=== PATIENT | male | born 1950 | race Caucasian/White ===

== ENCOUNTER 2017-11-10 11:48 | Observation (INO) | payer OTHER ==
--- NOTE | 2017-11-10 13:02 | RAD REPORT ---
EXAM DESCRIPTION: RAD - Chest Single View - 11/10/2017 12:53 pm CLINICAL HISTORY: Chest pain;SOB Chest pain. COMPARISON: Chest Single View dated 05/02/2017; Chest Pa And Lat (2 Views) dated 04/04/2017; Chest S kristen View dated 02/28/2017; Chest Pa And Lat (2 Views) dated 02/07/2017 FINDINGS: Portable technique limits examination quality. The lungs are grossly clear. The heart is normal in size. No displaced fractures. IMPRESSION: No acute intrathoracic process suspected.
[2017-11-10] MEDS ORDERED: ALBUTEROL 2.5 MG/3 ML NEB SOL ONE (13:04)
[2017-11-10] MEDS ORDERED: IPRATROPIUM BROM 0.5MG/2.5ML ONE (13:05)
[2017-11-10] MEDS ORDERED: ASPIRIN 81 MG CHEWABLE TABLET ONE (13:05)
[2017-11-10 13:23] LABS: Absolute Lymphocytes (CBC) 2.2 K/uL (0.7-4.9); Absolute Neutrophil 8.9 K/uL (1.8-8.0); Basophils % 0.9 % (0-1.3); Eosinophils % 0.9 % (0-4.4); Hematocrit 39.2 % (39.6-49.0); Lymphocytes % 17.9 % (15.3-44.8); MCH 29.5 pg (27.0-35.0); MCV 86.3 fL (80-100); MPV 8.2 fL (7.6-11.3); RBC Red Blood Cell Count 4.54 M/uL (4.33-5.43)
[2017-11-10 13:29] LABS: Protime INR 1.05
[2017-11-10 13:47] LABS: Urine Blood TRACE (NEG); Urine Glucose NEGATIVE (NEG); Urine Protein NEGATIVE (NEG); Urine pH 5.5 (5.0-7.0)
[2017-11-10 13:56] LABS: AST/SGOT 155 U/L (15-37); BUN Blood Urea Nitrogen 21 mg/dL (7-18); Bicarbonate 27 mmol/L (21-32); Glucose Level 114 mg/dL (74-106); Potassium 3.4 mmol/L (3.5-5.1); Sodium Level 139 mmol/L (136-145)
[2017-11-10 13:57] LABS: ALT/SGPT 28 U/L (12-78); Albumin 3.7 g/dL (3.4-5.0); Alkaline Phosphatase 81 U/L (45-117); Bilirubin Direct < 0.1 mg/dL (0-0.2); Bilirubin Total 0.3 mg/dL (0.2-1.0); Creatine Phosphokinase 850 U/L (39-308); Magnesium 1.9 mg/dL (1.8-2.4); NT PRO-BNP 2177 pg/mL (<125); Protein, Total 8.3 g/dL (6.4-8.2)
[2017-11-10] MEDS ORDERED: ENOXAPARIN 100 MG/ML SYR SQ ONE (14:57)
[2017-11-10] MEDS ORDERED: FUROSEMIDE 40 MG/4 ML VIAL ONE (14:57)
[2017-11-10] MEDS ORDERED: ACETAMINOPHEN 500 MG TAB PO PRN (15:18)
--- NOTE | 2017-11-10 15:25 | EDPHYS ---
Physician Documentation [facility] Name: Ludwin Hsu Age: 66 yrs Sex: Male : 1950 Arrival Date: 11/10/2017 Time: 11:51 Bed 6 Private MD: Jessica Ferrara H ED Physician Kavin Mcmullen HPI: 11/10 12:45 This 66 yrs old Male presents to ER via Ambulatory with complaints of cp Breathing Difficulty. Historical: - Allergies: 12:18 NKA; aj1 - Home Meds: 12:18 metolazone 5 mg oral tab 1 tab once daily [Active]; glipizide 5 mg Oral tr24 2 tabs aj1 once daily [Active]; clopidogrel 75 mg Oral tab 1 tab once daily [Active]; metformin 1,000 mg Oral tab 1 tab 2 times per day [Active]; trazodone 100 mg Oral tab 1 tab at bedtime [Active]; gabapentin 400 mg Oral cap 1 cap 3 times per day [Active]; nifedipine 60 mg Oral TbER 1 tab once daily [Active]; furosemide 80 mg Oral tab 1 tab once daily [Active]; carvedilol 25 mg Oral tab 1 tab 2 times per day [Active]; aspirin 81 mg Oral chew 1 tab once daily [Active]; pantoprazole 40 mg Oral TbEC 1 tab once daily [Active]; albuterol sulfate 90 mcg/actuation Inhl HFAA 1 puff every 6 hours [Active]; - PMHx: 12:18 arteriosclerosis; CHF; chronic back pain; COPD; Diabetes - NIDDM; kidney disease; aj1 Hypertension; malignant neoplasm of epidimyis; Myocardial infarction; Pancreatitis; PTSD; tinnitus; - Immunization history:: Flu vaccine is up to date. - Social history:: Smoking status: Patient uses tobacco products, smokes one pack cigarettes per day. - Ebola Screening: : Patient denies travel to an Ebola-affected area in the 21 days before illness onset. ROS: 12:50 Constitutional: Negative for body aches, chills, fever, poor PO intake. cp 12:50 Eyes: Negative for injury, pain, redness, and discharge. cp 12:50 ENT: Negative for drainage from ear(s), ear pain, sore throat, difficulty swallowing, difficulty handling secretions. 12:50 Cardiovascular: Positive for edema, Negative for chest pain, palpitations. 12:50 Respiratory: Positive for shortness of breath, on exertion. Negative for cough, hemoptysis, wheezing. 12:50 Abdomen/GI: Negative for abdominal pain, nausea, vomiting, and diarrhea, black/tarry stool, rectal bleeding. 12:50 Back: Negative for pain at rest, pain with movement, radiated pain. 12:50 : Negative for urinary symptoms. 12:50 Skin: Negative for cellulitis, rash. 12:50 Neuro: Negative for altered mental status, headache, syncope, near syncope, weakness. 12:50 All other systems are negative. Exam: 12:35 ECG was reviewed by the Attending Physician. 16:29 ECG was reviewed by the Attending Physician. Vital Signs: 12:18 BP 128 / 83; Pulse 62; Resp 24; Temp 97.6(O); Pulse Ox 93% on R/A; Weight 136.08 kg aj1 (R); Height 5 ft. 11 in. (180.34 cm); Pain 7/10; 13:41 Pulse 88; Resp 27; Pulse Ox 93% on R/A; ae1 13:48 BP 138 / 75; Pulse 95; Resp 17; Pulse Ox 93% on R/A; ae1 15:14 BP 124 / 62; Pulse 63; Resp 19; Pulse Ox 95% on 2 lpm NC; ae1 16:45 BP 165 / 72; Pulse 66; Resp 18 S; Pulse Ox 99% ; Pain 0/10; jl7 12:18 Body Mass Index 41.84 (136.08 kg, 180.34 cm) aj1 MDM: 12:24 Patient medically screened. 15:05 Data reviewed: vital signs, nurses notes, lab test result(s), EKG, radiologic studies, cp plain films. ED course: VSS. Patient left ED against medical advice to go outside and smoke cigarette. 15:05 Test interpretation: by ED physician or midlevel provider: ECG, plain radiologic cp studies. 15:12 Physician consultation: Efrain Cintron MD was contacted at 15:13, regarding consult, cp patient's condition, discussed findings on EKG, labs and chest xray. Will admit patient to hospitalist with consult for DR Cintron. 11/10 12:40 Order name: Basic Metabolic Panel; Complete Time: 14:10 cp 11/10 14:10 Interpretation: Normal except: K 3.4; GLUC 114; BUN 21; GFR 60. cp 11/10 12:40 Order name: CBC with Diff; Complete Time: 14:10 cp 11/10 14:11 Interpretation: Normal except: WBC 12.3; HGB 13.4; HCT 39.2; NEUT A 8.9. cp 07/ 12:40 Order name: Ckmb; Complete Time: 14:10 cp 11/10 12:40 Order name: CPK; Complete Time: 14:10 cp 11/10 12:40 Order name: LFT's; Complete Time: 14:10 cp 11/10 12:40 Order name: Magnesium; Complete Time: 14:10 cp 11/10 12:40 Order name: NT PRO-BNP; Complete Time: 14:10 cp 11/10 14:11 Interpretation: Abnormal: NT PRO-BNP 2177. cp 11/10 12:40 Order name: PT-INR; Complete Time: 14:10 cp 11/10 12:40 Order name: Ptt, Activated; Complete Time: 14:10 cp 11/10 12:40 Order name: Troponin (emerg Dept Use Only); Complete Time: 15:05 cp 11/10 15:05 Interpretation: Abnormal: TROPED 86.90. cp 11/10 12:40 Order name: XRAY Chest (1 view); Complete Time: 14:10 cp 11/10 13:43 Order name: Urine Dipstick--Ancillary (enter results); Complete Time: 14:10 ag 11/10 15:20 Order name: Urinalysis EDMN 11/10 15:21 Order name: Chest Pa And Lat (2 Views) EDMN 11/10 12:40 Order name: EKG; Complete Time: 12:40 cp 11/10 12:40 Order name: Cardiac monitoring; Complete Time: 13:02 cp 11/10 12:40 Order name: EKG - Nurse/Tech; Complete Time: 13:03 cp 11/10 12:40 Order name: IV Saline Lock; Complete Time: 13:18 cp 11/10 12:40 Order name: Labs collected and sent; Complete Time: 13:18 cp 11/10 12:40 Order name: O2 Per Protocol; Complete Time: 13:02 cp 11/10 12:40 Order name: O2 Sat Monitoring; Complete Time: 13:02 cp 11/10 14:43 Order name: Diet Heart Healthy; Complete Time: 14:43 jl7 11/10 15:20 Order name: CONS Physician Consult EDMN 11/10 15:20 Order name: Heart Healthy EDMN 11/10 15:21 Order name: Chest Pa And Lat (2 Views) EDMN 11/10 12:40 Order name: Urine Dipstick-Ancillary (obtain specimen); Complete Time: 13:40 cp EC:35 Rate is 83 beats/min. Rhythm is regular. MD interval is normal. QRS interval is cp prolonged at 102 msec. QT interval is normal. Clinical impression: NSR w/ Non-specific ST/T Changes. Interpreted by me. Reviewed by me. 16:29 Rate is 92 beats/min. Rhythm is regular. MD interval is normal. QRS interval is cp prolonged at 104 msec. QT interval is prolonged. Clinical impression: NSR w/ Non-specific ST/T Changes. Interpreted by me. Reviewed by me. Administered Medications: 13:05 Drug: Albuterol - atroVENT (3:1) (2.5 mg - 0.5 mg) 3 ml Route: Nebulizer; ae1 14:54 Follow up: Response: Wheezing diminished ae1 13:05 Drug: Aspirin Chewable Tablet 324 mg Route: PO; ae1 14:55 Follow up: Response: No adverse reaction ae1 15:00 Drug: Lovenox 100 mg Route: Sub-Q; Site: right lower abdomen; ae1 16:33 Follow up: Response: No adverse reaction ae1 15:02 Drug: Lasix 40 mg Route: IVP; Site: right hand; ae1 16:32 Follow up: Response: Other; 600 mls urine output voided in urinal ae1 16:34 Drug: Nicotine 21 mg/24 hr 1 patches {Note: Placed on right upper arm.} Route: jl7 Transdermal; Site: affected area; Disposition: 11/11 10:30 Co-signature as Attending Physician, Kavin Mcmullen MD. Disposition: 11/10/17 15:25 Hospitalization ordered by Consuelo Pace for Inpatient Admission. Preliminary diagnosis are Non-ST elevation (NSTEMI) myocardial infarction, Unspecified combined systolic (congestive) and diastolic (congestive) heart failure. - Bed requested for Telemetry/MedSurg (Inpatient). - Status is Inpatient Admission. ae1 - Condition is Stable. - Problem is new. - Symptoms have improved. UTI on Admission? No Addendum: 11/13/2017 01:00 Addendum: EXAM: Constitutional: The patient appears in no acute distress, alert,awake, c p non-diaphoretic, non-toxic, well developed, well nourished, obese. Head/Face: Normocephalic, atraumatic. Eyes: Pupils equal round and reactive to light, extra-ocular motions intact. Lids and lashes normal. Conjunctiva and sclera are non-icteric and not injected. Cornea within normal limits. Periorbital areas with no swelling, redness, or edema. ENT: Nares patent. No nasal discharge, no septal abnormalities noted. Tympanic membranes are normal and external and external auditory canals are clear. Oropharynx with no redness, swelling, or masses, exudates, or evidence of obstruction, uvula midline. Mucous membranes moist. Neck: Trachea midline, no thyromegaly or masses palpated, and no cervical lymphadenopathy. Supple, full range of motion without nuchal rigidity, or vertebral point tenderness. No Meningismus. Chest/axilla: Normal symmetrical motion. No tenderness. No crepitus. No axillary masses or tenderness. Cardiovascular: Rate: normal, Rhythm: regular, Pulses: Pulses are 2+ in right radial artery and left radial artery. Heart sounds: murmur, rub, not appreciated, gallop, not appreciated, Edema: mild bilateral lower legs, JVD: is not appreciated. Respiratory: the patient does not display signs of respiratory distress, Respirations: normal, no use of accessory muscles, no retractions, no splinting, no tachypnea, labored breathing, is not present, Breath sounds: are clear throughout, no decreased breath sounds, no stridor, no wheezing. Abdomen/GI: Inspection: obese, Bowel sounds: active, all quadrants, Palpation: abdomen is soft and non-tender. Back: pain, is absent, ROM is normal. Skin: cellulitis, is not appreciated, no rash present. Neuro: Orientation: to person, place \T\ time. Cerebellar function: is grossly normal, Motor: moves all fours, strength is normal, Sensation: no obvious gross deficits, Gait: is steady. Signatures: Dispatcher [employer] [facility] Veronica Álvarez RN RN aj1 Yoselyn John Corey, PA PA cp Endy Agosto, STEPHEN RN ae1 Theo Carlos RN RN jl7 Kavin Mcmullen MD MD gs Corrections: (The following items were deleted from the chart) 11/10 16:43 15:25 Hospitalization Ordered by Consuelo Pace MD for Inpatient Admission. Preliminary ag diagnosis is Non-ST elevation (NSTEMI) myocardial infarction; Unspecified combined systolic (congestive) and diastolic (congestive) heart failure. Bed requested for Telemetry/MedSurg (Inpatient). Status is Inpatient Admission. Condition is Stable. Problem is new. Symptoms have improved. UTI on Admission? No. cp 17:01 16:43 11/10/2017 15:25 Hospitalization Ordered by Consuelo Pace MD for Inpatient ae1 Admission. Preliminary diagnosis is Non-ST elevation (NSTEMI) myocardial infarction; Unspecified combined systolic (congestive) and diastolic (congestive) heart failure. Bed requested for Telemetry/MedSurg (Inpatient). Status is Inpatient Admission. Condition is Stable. Problem is new. Symptoms have improved. UTI on Admission? No. ag
--- NOTE | 2017-11-10 15:25 | ER ---
Nurse's Notes [facility] Name: Ludwin Hsu Age: 66 yrs Sex: Male : 1950 Arrival Date: 11/10/2017 Time: 11:51 Bed 6 Private MD: Jessica Ferrara H Diagnosis: Non-ST elevation (NSTEMI) myocardial infarction;Unspecified combined systolic (congestive) and diastolic (congestive) heart failure Presentation: 11/10 12:12 Presenting complaint: Patient states: Shortness of breath and swelling to bilateral aj1 lower legs since yesterday. States that he did not take his Lasix for the past couple days. Denies chest pain at this time but states that he was having chest pain all night last night. Patient also reports that he has some spider bites on his face that he would like to have checked out. Transition of care: patient was not received from another setting of care. Onset of symptoms was November 09, 2017. Risk Assessment: Do you want to hurt yourself or someone else? Patient reports no desire to harm self or others. Initial Sepsis Screen: Does the patient meet any 2 criteria? No. Patient's initial sepsis screen is negative. Does the patient have a suspected source of infection? No. Patient's initial sepsis screen is negative. Care prior to arrival: None. 12:12 Method Of Arrival: Ambulatory aj1 12:12 Acuity: NGUYEN 3 aj1 Triage Assessment: 12:18 General: Appears uncomfortable, Behavior is calm, cooperative, appropriate for age. aj1 Pain: Complains of pain in face, right leg and left leg Pain currently is 7 out of 10 on a pain scale. Cardiovascular: swelling noted to bilateral legs. Respiratory: Reports shortness of breath Airway is patent Respiratory effort is even, unlabored, Respiratory pattern is regular, symmetrical, Onset: The symptoms/episode began/occurred yesterday, the patient has mild shortness of breath. Historical: - Allergies: 12:18 NKA; aj1 - Home Meds: 12:18 metolazone 5 mg oral tab 1 tab once daily [Active]; glipizide 5 mg Oral tr24 2 tabs aj1 once daily [Active]; clopidogrel 75 mg Oral tab 1 tab once daily [Active]; metformin 1,000 mg Oral tab 1 tab 2 times per day [Active]; trazodone 100 mg Oral tab 1 tab at bedtime [Active]; gabapentin 400 mg Oral cap 1 cap 3 times per day [Active]; nifedipine 60 mg Oral TbER 1 tab once daily [Active]; furosemide 80 mg Oral tab 1 tab once daily [Active]; carvedilol 25 mg Oral tab 1 tab 2 times per day [Active]; aspirin 81 mg Oral chew 1 tab once daily [Active]; pantoprazole 40 mg Oral TbEC 1 tab once daily [Active]; albuterol sulfate 90 mcg/actuation Inhl HFAA 1 puff every 6 hours [Active]; - PMHx: 12:18 arteriosclerosis; CHF; chronic back pain; COPD; Diabetes - NIDDM; kidney disease; aj1 Hypertension; malignant neoplasm of epidimyis; Myocardial infarction; Pancreatitis; PTSD; tinnitus; - Immunization history:: Flu vaccine is up to date. - Social history:: Smoking status: Patient uses tobacco products, smokes one pack cigarettes per day. - Ebola Screening: : Patient denies travel to an Ebola-affected area in the 21 days before illness onset. Screenin:22 Abuse screen: Denies threats or abuse. Nutritional screening: No deficits noted. ae1 Tuberculosis screening: No symptoms or risk factors identified. Fall Risk None identified. Assessment: 12:20 General: Appears uncomfortable, obese, Behavior is calm, cooperative. Pain: Complains ae1 of pain in chest Pain does not radiate. Neuro: Neuro: Level of Consciousness is awake, alert, obeys commands, Oriented to person, place, time, situation. Cardiovascular: Patient's skin is warm and dry. Respiratory: Airway is patent Respiratory effort is even, shallow, Mildly labored Breath sounds with wheezes bilaterally. GI: Abdomen is round distended, obese, Bowel sounds diminished in right lower quadrant and left lower quadrant. : No signs and/or symptoms were reported regarding the genitourinary system. Urine is clear. EENT: No signs and/or symptoms were reported regarding the EENT system. Derm: Wound noted Other: Two dry, healing lesions to the center of forehead directly in between eyebrows. Patient states he thinks a spider bit him. Musculoskeletal: Swelling present in right leg and left leg. 13:50 Cardiovascular: Rhythm is regular. ae1 13:54 Reassessment: Patient appears in no apparent distress at this time. Respiratory: Airway ae1 is patent Respiratory effort is even, Less labored. 15:18 Reassessment: Diet tray delivered, pt sitting on side of bed eating, no signs of jl7 distress noted. 15:52 Reassessment: Patient stating he wishes to go outside and "smoke a cigarette". Provided ae1 patient teaching on the hospital non-smoking facility and reiterated heart condition. Patient states "You can't stop me." Nurse notified Charge Nurse and Provider. Provider spoke with patient, patient repeated "You can't stop me. It's a 50 year habit" Patient proceeded to walk out the front of the ED. Vital Signs: 12:18 BP 128 / 83; Pulse 62; Resp 24; Temp 97.6(O); Pulse Ox 93% on R/A; Weight 136.08 kg aj1 (R); Height 5 ft. 11 in. (180.34 cm); Pain 7/10; 13:41 Pulse 88; Resp 27; Pulse Ox 93% on R/A; ae1 13:48 BP 138 / 75; Pulse 95; Resp 17; Pulse Ox 93% on R/A; ae1 15:14 BP 124 / 62; Pulse 63; Resp 19; Pulse Ox 95% on 2 lpm NC; ae1 16:45 BP 165 / 72; Pulse 66; Resp 18 S; Pulse Ox 99% ; Pain 0/10; jl7 12:18 Body Mass Index 41.84 (136.08 kg, 180.34 cm) aj1 ED Course: 11:51 Patient arrived in ED. mr 11:51 Jessica Ferrara DO is Private Physician. mr 12:14 Triage completed. aj1 12:15 Jose E Moser PA is PHCP. cp 12:15 Kavin Mcmullen MD is Attending Physician. cp 12:18 Arm band placed on Patient placed in an exam room. aj1 12:21 Endy Agosto, STEPHEN is Primary Nurse. ae1 12:35 Patient has correct armband on for positive identification. Bed in low position. Call jl7 light in reach. Side rails up X 1. groundwater monitoring technician on. Pulse ox on. NIBP on. Warm blanket given. 12:35 EKG done, by ED staff, reviewed by Jose E SEQUEIRA. jl7 12:54 XRAY Chest (1 view) In Process Unspecified. EDMS 13:21 Inserted saline lock: 24 gauge in right hand, using aseptic technique. Blood collected. ae1 14:42 Notified Nurse Practitioner and/or Physician Employee Relations Administrator of a critical lab result(s), iw Trop=86.9. 15:24 Consuelo Pace MD is Hospitalizing Provider. cp 17:00 No provider procedures requiring assistance completed. Patient admitted, IV remains in ae1 place. Administered Medications: 13:05 Drug: Albuterol - atroVENT (3:1) (2.5 mg - 0.5 mg) 3 ml Route: Nebulizer; ae1 14:54 Follow up: Response: Wheezing diminished ae1 13:05 Drug: Aspirin Chewable Tablet 324 mg Route: PO; ae1 14:55 Follow up: Response: No adverse reaction ae1 15:00 Drug: Lovenox 100 mg Route: Sub-Q; Site: right lower abdomen; ae1 16:33 Follow up: Response: No adverse reaction ae1 15:02 Drug: Lasix 40 mg Route: IVP; Site: right hand; ae1 16:32 Follow up: Response: Other; 600 mls urine output voided in urinal ae1 16:34 Drug: Nicotine 21 mg/24 hr 1 patches {Note: Placed on right upper arm.} Route: jl7 Transdermal; Site: affected area; Intake: Outcome: 15:25 Decision to Hospitalize by Provider. cp 17:00 Admitted to Med/surg accompanied by tech, family with patient, via wheelchair, room ae1 230, with oxygen, with chart, Report called to Rajwinder MITCHELL 17:00 Condition: stable 17:00 Discharge instructions given to patient, Instructed on the need for admit, Demonstrated understanding of instructions. 17:01 Patient left the ED. ae1 Signatures: Dispatcher [employer] [facility] Veronica Álvarez, STEPHEN RN Diana Wilder Irene, RN RN iw Page, Corey, PA PA Endy Agosto RN RN ae1 Theo Carlos RN RN jl7
[2017-11-10] MEDS ORDERED: NICOTINE 21 MG/PAT TD ONE (16:34)
[2017-11-10] MEDS ORDERED: POTASSIUM 25 MEQ EFFERV TAB PO ONE (17:26)
--- NOTE | 2017-11-10 17:30 | P.HP ---
Certification for Inpatient Patient admitted to: Observation With expected LOS: <2 Midnights Patient will require the following post-hospital care: None Practitioner: I am a practitioner with admitting privileges, knowledge of patient current condition, hospital course, and medical plan of care. Services: Services provided to patient in accordance with Admission requirements found in Title 42 Section 412.3 of the Code of Federal Regulations Patient History Date of Service: 11/10/17 Primary Care Provider: Dr Ferrara Reason for admission: SOB History of Present Illness: 66 y/o M with significant PMHX of CAD, CHF, T2DM, HTN, COPD, NORRIS and multiple other comorbit condition to the ED complaining of having some shortness of breath. Patient stated that his shortness of breath has been getting progressively worse and he started noticing that his feet has been swollen and thus he decided to come to the ER. Patient stated that he has been not taking his Lasix at home and has been noncompliant with his other medications as well. Patient also stated that he was having some chest pain yesterday at the house however a resolved before he came to the ER. When I saw the patient in the ER patient complained of having some mild chest discomfort and shortness of breath. Patient was saturating 94% on the 2 L. Patient's initial laboratory revealed that he had troponin of 86 CK MB was elevated as well and thus was admitted for further evaluation by cardiology. Allergies No Known Allergies Allergy (Verified 05/03/17 01:10) Home Medications: Metformin HCl [Glucophage*] 1,000 mg PO BID 01/01/14 Albuterol Sulfate [Proair Respiclick] 1 puff IN QIDP PRN 02/21/16 Budesonide/Formoterol Fumarate [Symbicort 160-4.5 Mcg Inhaler] 2 puff IH BIDP PRN 02/21/16 Carvedilol [Coreg*] 25 mg PO BID 6AM 6PM #60 tab 02/24/16 Clopidogrel Bisulfate [Plavix*] 75 mg PO DAILY #30 tablet 02/24/16 Furosemide [Lasix*] 80 mg PO DAILY #30 tab 02/24/16 Hydralazine [Apresoline*] 50 mg PO TID #90 tab 02/24/16 Lisinopril [Prinivil*] 40 mg PO DAILY #30 tab 02/24/16 Pantoprazole [Protonix Tab*] 40 mg PO DAILYAC #30 tab 02/24/16 Gabapentin [Neurontin*] 1,200 mg PO TID 12/02/16 Atorvastatin Calcium 40 mg PO DAILY 05/03/17 metOLazone [Metolazone] 5 mg PO DAILY PRN 30 Days #30 tablet 05/04/17 - Past Medical/Surgical History Diabetic: Yes -: Hypertension -: Diabetes mellitus type 2 -: Posttraumatic stress disorder -: Anxiety -: Hepatitis-C -: Hyperlipidemia -: CAD, stent placement x1 -: Obstructive sleep apnea -: Obesity -: Diabetic neuropathy -: History pancreatitis -: COPD, tobacco abuse -: 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 - Family History Father -: Cancer Mother -: Cancer Sister -: Cancer Brother -: Cancer - Social History Alcohol use: No CD- Drugs: Yes Caffeine use: Yes Review of Systems General: As per HPI Physical Examination - Vital Signs Temperature: 97.6 F Blood Pressure: 165/72 Pulse: 66 Respirations: 18 - Physical Exam General: Alert, In no apparent distress, Obese HEENT: Atraumatic, PERRLA Neck: Supple, JVD distended Respiratory: Normal air movement, Crackles/rales, Inspiratory wheezes Cardiovascular: Regular rate/rhythm, Normal S1 S2 Gastrointestinal: Normal bowel sounds, Soft and benign, Non-distended, No tenderness Musculoskeletal: No tenderness Integumentary: No rashes Neurological: Normal gait, Normal speech, Normal strength at 5/5 x4 extr, Normal tone, Normal affect Lymphatics: No axilla or inguinal lymphadenopathy - Studies Laboratory Data (last 24 hrs) 11/10/17 13:11: PT 12.4, INR 1.05, APTT 32.0 11/10/17 13:11: WBC 12.3 H, Hgb 13.4 L, Hct 39.2 L, Plt Count 265 11/10/17 13:11: Sodium 139, Potassium 3.4 L, BUN 21 H, Creatinine 1.20, Glucose 114 H, Magnesium 1.9, Total Bilirubin 0.3, AST 155 H, ALT 28, Alkaline Phosphatase 81 Assessment and Plan - Problems (Diagnosis) (1) Chest pain Onset Date: 02/22/16 Current Visit: No Status: Acute Plan: Chest pain Resolved in the ER. Elevated Troponinx1 and nonspecific EKG changes. -Cardiology consulted. Awaiting reccs -ECHO ordered. -ACS med: Statin, ASA, BB, Morphine and nitroglycerin Qualifiers: Chest pain type: other chest pain Qualified Code(s): R07.89 - Other chest pain; R07.8 - Other chest pain (2) Elevated troponin Current Visit: Yes Status: Acute Plan: Elevated Toponinx1 to 86.0. Pt with CKD and CHF. Can be elevated due to HF however ACS cannot be ruledout given CKMB elevation as well. -Cardiology consulted. -F.U with Reccs (3) Acute on chronic diastolic (congestive) heart failure Onset Date: 05/07/17 Current Visit: No Status: Acute Plan: Acute on chronic Diastolic Dysfunction -BNP is mildly elevated -Lasix BID IV for now -Repeat ECHO (4) COPD (chronic obstructive pulmonary disease) Current Visit: No Status: Chronic Qualifiers: COPD type: chronic bronchitis Chronic bronchitis type: unspecified Qualified Code(s): J42 - Unspecified chronic bronchitis (5) Morbid obesity Onset Date: 05/07/17 Current Visit: No Status: Chronic (6) Type 2 diabetes mellitus without complications Onset Date: 05/07/17 Current Visit: No Status: Chronic Qualifiers: Diabetes mellitus halfway insulin use: without halfway use Qualified Code(s): E11.9 - Type 2 diabetes mellitus without complications (7) GERD (gastroesophageal reflux disease) Onset Date: 12/03/16 Current Visit: No Status: Chronic Qualifiers: Esophagitis presence: without esophagitis Qualified Code(s): K21.9 - Gastro -esophageal reflux disease without esophagitis (8) Hyperlipidemia Onset Date: 12/03/16 Current Visit: No Status: Chronic (9) Hypertension Onset Date: 05/07/17 Current Visit: No Status: Chronic Qualifiers: Hypertension type: essential hypertension Qualified Code(s): I10 - Essential (primary) hypertension (10) Obesity Current Visit: No Status: Chronic Qualifiers: Obesity type: due to excess calories Obesity classification: adult class 3 (BMI >= 40) Serious obesity comorbidity presence: with serious comorbidity Body mass index: BMI 40.0-44.9 Qualified Code(s): E66.01 - Morbid (severe) obesity due to excess calories; Z68.41 - Body mass index (BMI) 40.0-44.9, adult (11) Obstructive sleep apnea Current Visit: No Status: Chronic Discharge Plan: Home Plan to discharge in: 24 Hours - Advance Directives Does patient have a Living Will: No Does patient have a Durable POA for Healthcare: No - Code Status/Comfort Care Code Status Assessed: Yes Critical Care: No
[2017-11-10] MEDS ORDERED: D50W 25 GM/50 ML SYRINGE IV PRN (17:35)
[2017-11-10] MEDS ORDERED: GLUCAGON 1 MG/VIAL IM PRN (17:35)
[2017-11-10] MEDS: INSULIN -REGULAR HUMAN 50 UNIT/0.5 ML ML SQ SCH ×2 (17:35→20:42)
[2017-11-10] MEDS ORDERED: NITROGLYCERIN 0.4 MG/TAB SL PRN (17:39)
[2017-11-10] MEDS ORDERED: MORPHINE 4 MG/ML SYR IV PRN (17:40)
[2017-11-10] MEDS: FUROSEMIDE 40 MG/4 ML VIAL IV SCH (18:28)
[2017-11-10 18:52] VITALS: BMI 40.6
[2017-11-10] MEDS ORDERED: ATORVASTATIN 40 MG TAB PO SCH (21:00)
[2017-11-10] MEDS ORDERED: CARVEDILOL 25 MG TAB PO SCH (21:00)
--- NOTE | 2017-11-10 23:00 | CON ---
Chief Complaint: Chest pain. History Of Present Illness: Mr. Hsu started having chest pain about 16 hours before arriving to the hospital. Largely the pain resolved. He thought it was indigestion. Later decided to come to [facility]. He has a history of diabetes, hypertension, obesity, dyslipidemia, and 2 previous stent s. There was an RCA stent and obtuse marginal stent placed in before 2013 and in 2015. There may gupta ve been other stents but no definite history of those. No bypass surgery. He does not have regular angina. Does not use tobacco. Alcohol use, moderate. He took 3 days where he stopped taking his La six and metolazone. He tends to have diastolic congestive heart failure as well as his other problem s. Physical Examination: General: He is 5 feet 11 inches, 300 pounds, body mass index 42. HEENT: Unremarkable. There are some scabs on his brow line on the right. They do not appear infect ed. No ecchymoses, not due to any recent trauma. Lungs: Clear. Carotids: No bruit. Heart: S4 gallop. No significant murmur. Abdomen: Soft. Extremities: 2 to 3+ edema. Distal pulses not palpable. Impression: Mr. Hsu has worsening CAD. It is very likely he has diffuse inoperable CAD. I have recommended we do a cardiac cath on him and see what we learn. Given the fact that we had so much t rouble doing it from the groin the last time I would recommend we use the radial approach, and he see ms agreeable to this. I think it is likely that we will have a lower risk of complications. We will continue his beta blockers, calcium blockers. I have to wonder why he is not on a statin medication at home. We did his last stent, we strongly recommended a statin. Gave him Lipitor. He has not se en me since 2016 and [facility], so I am not sure if they really gupta d a history or if he has had discussions with doctors that I am not privy to where he is refusing to take it, but I have to say we will inform him that his prognosis is much better if he takes a statin. Thank you very much for your kind referral of Mr. Hsu. We will follow him with you. We will cony n on doing a cardiac cath tomorrow. SH/PARTH Voice ID: [id number] Report ID: [id number]
[2017-11-11] MEDS ORDERED: ALPRAZOLAM 0.25 MG TABLET PO ONE (02:24)
[2017-11-11 04:36] LABS: Absolute Lymphocytes (CBC) 3.1 K/uL (0.7-4.9); Absolute Neutrophil 7.4 K/uL (1.8-8.0); Basophils % 0.6 % (0-1.3); Eosinophils % 2.7 % (0-4.4); Lymphocytes % 26.3 % (15.3-44.8); MCH 29.6 pg (27.0-35.0); MCV 86.7 fL (80-100); MPV 8.5 fL (7.6-11.3); Monocytes % 8.4 % (3.3-12.3)
[2017-11-11 05:10] LABS: Albumin 3.5 g/dL (3.4-5.0); Bilirubin Total 0.3 mg/dL (0.2-1.0); Magnesium 1.6 mg/dL (1.8-2.4); Potassium 3.2 mmol/L (3.5-5.1); Protein, Total 7.7 g/dL (6.4-8.2)
[2017-11-11] MEDS ORDERED: Magnesium Sulfate 2gm IVPB 2 G/50 ML BAG IV ONE (06:28)
--- NOTE | 2017-11-11 06:35 | EKG ---
Test Date: 2017-11-10 Test Time: 12:31:18 Hydraulic Design Engineer: SANGEETA MEASUREMENT RESULTS: Intervals: Rate: 83 [place]: 196 QRSD: 102 QT: 374 QTc: 439 [place]: P: 92 [place]: 196 QRS: -40 T: 39 INTERPRETIVE STATEMENTS: Sinus rhythm with frequent premature ventricular complexes Left axis deviation T wave abnormality, consider lateral ischemia Abnormal ECG Compared to ECG 05/02/2017 19:09:51 Left-axis deviation now present Possible ischemia now present T-wave abnormality still present Electronically Signed On 11-11-17 06:35:15 CDT by Efrain Cintron
[2017-11-11] MEDS ORDERED: MAGNESIUM SULFATE 1 gm IVPB 1 GM/100 ML BAG IV ONE (07:00)
[2017-11-11] MEDS: INSULIN -REGULAR HUMAN 50 UNIT/0.5 ML ML SQ SCH ×2 (07:30→11:30)
--- NOTE | 2017-11-11 07:47 | RAD REPORT ---
EXAM DESCRIPTION: Bandar Sweet (2 Views)11/11/2017 6:59 am CLINICAL HISTORY: Shortness of breath COMPARISON: November 10 2017 FINDINGS: The lungs appear clear of acute infiltrate. The heart is normal size IMPRESSION: No acute abnormalities displayed
[2017-11-11] MEDS ORDERED: NA CHLORIDE 0.9% 250 ML ONE (08:05)
[2017-11-11] MEDS: KCL 20 MEQ/100 mL IVPB 20 MEQ/100 ML BAG IV SCH ×2 (08:06→12:02)
[2017-11-11] MEDS ORDERED: HEPARIN 5000 UNIT/ML 1 ML VIAL ONE (08:22)
[2017-11-11] MEDS ORDERED: NICARDIPINE HCL 25 MG/10 ML IV ONE (08:23)
[2017-11-11] MEDS ORDERED: ATROPINE SULF 1 MG/10 ML SYR IV ONE (08:23)
[2017-11-11] MEDS ORDERED: NA CHLORIDE 0.9% 0 ML ONE ×2 (08:23→09:09)
[2017-11-11] MEDS ORDERED: LIDOCAINE 1% MPF 2 ML AMPULE ONE (08:37)
[2017-11-11] MEDS ORDERED: HEPA 1000U/500MLS 2,000 UNIT/1,000 ML BAG IV ONE (08:37)
[2017-11-11] MEDS ORDERED: LISINOPRIL 20 MG TAB PO SCH (09:00)
[2017-11-11] MEDS ORDERED: CLOPIDOGREL 75 MG TABLET PO SCH (09:00)
[2017-11-11] MEDS ORDERED: ENOXAPARIN 40 MG/0.4 ML SQ SCH (09:00)
[2017-11-11] MEDS: FUROSEMIDE 40 MG/4 ML VIAL IV SCH ×2 (09:00→13:06)
[2017-11-11] MEDS ORDERED: NIFEDIPINE XL 60 MG TABLET PO SCH (09:00)
[2017-11-11] MEDS ORDERED: ASPIRIN EC 81 MG TAB PO SCH (09:00)
[2017-11-11] MEDS ORDERED: NA CHLORIDE 0.9% 500 ML ONE (09:09)
--- NOTE | 2017-11-11 09:10 | EKG ---
Test Date: 2017-11-11 Test Time: 06:22:17 Rice Farmer: RT MEASUREMENT RESULTS: Intervals: Rate: 90 [place]: QRSD: 104 QT: 434 QTc: 530 [place]: P: UT: QRS: -47 T: 98 INTERPRETIVE STATEMENTS: Atrial fibrillation with premature ventricular or aberrantly conducted complexes Left axis deviation T wave abnormality, consider anterior ischemia or digitalis effect Prolonged QT Abnormal ECG Compared to ECG 11/10/2017 12:31:18 Prolonged QT interval now present Sinus rhythm no longer present T-wave abnormality still present Possible ischemia still present Electronically Signed On 11-11-17 09:09:28 CDT by Efrain Cintron
--- NOTE | 2017-11-11 09:11 | EKG ---
Test Date: 2017-11-10 Test Time: 17:50:24 Talent Development Coordinator: MELYSSA MEASUREMENT RESULTS: Intervals: Rate: 74 [place]: 194 QRSD: 110 QT: 436 QTc: 483 [place]: P: 86 [place]: 194 QRS: -38 T: 74 INTERPRETIVE STATEMENTS: Sinus rhythm with occasional premature ventricular complexes Left axis deviation Low voltage QRS Intraventricular conduction delay Compared to ECG 11/10/2017 17:47:51 no significant change from previous ECG Electronically Signed On 11-11-17 09:11:05 CDT by Efrain Cintron
--- NOTE | 2017-11-11 09:12 | EKG ---
Test Date: 2017-11-10 Test Time: 16:27:29 Field Case Manager: JOSE MEASUREMENT RESULTS: Intervals: Rate: 92 [place]: 194 QRSD: 104 QT: 384 QTc: 474 [place]: P: 83 [place]: 194 QRS: -38 T: 56 INTERPRETIVE STATEMENTS: Sinus rhythm with frequent premature ventricular complexes Left axis deviation Nonspecific T wave abnormality Prolonged QT Abnormal ECG Compared to ECG 11/10/2017 12:31:18 no significant change from previous ECG Electronically Signed On 11-11-17 09:12:09 CDT by Efrain Cintron
--- NOTE | 2017-11-11 09:12 | EKG ---
Test Date: 2017-11-10 Test Time: 17:47:51 Striper: MELYSSA MEASUREMENT RESULTS: Intervals: Rate: 81 [place]: 196 QRSD: 108 QT: 428 QTc: 497 [place]: P: 82 GA: 196 QRS: -33 T: 73 INTERPRETIVE STATEMENTS: Sinus rhythm with frequent premature ventricular complexes Left axis deviation Nonspecific intraventricular conduction delay Nonspecific T wave abnormality Compared to ECG 11/10/2017 16:27:29 Intraventricular conduction delay now present Electronically Signed On 11-11-17 09:11:47 CDT by Efrain Cintron
[2017-11-11] MEDS ORDERED: FENTANYL CITR 100 MCG/2 ML ONE (09:16)
[2017-11-11] MEDS ORDERED: MIDAZOLAM HCL 5 MG/5 ML INJ ONE ×2 (09:16→09:18)
[2017-11-11 10:37] VITALS: TEMP 97
[2017-11-11 11:47] VITALS: BP 127/81
[2017-11-11] MEDS ORDERED: TRAZODONE 50 MG TABLET PO PRN (12:16)
[2017-11-11 14:18] VITALS: O2SAT 98
[2017-11-11] MEDS ORDERED: SOTALOL HCL 80 MG TAB PO SCH (18:00)
--- NOTE | 2017-11-11 19:07 | OP ---
Surgeon: Efrain Cintron MD Procedure: Left heart catheterization, coronary and left ventricular angiography. Findings: The patient has a left main intimal flap and a 50% left main stenosis, diffuse long tortuo us 60% stenosis of the LAD. Circumflex is free of significant stenosis. The stent in the OM is szymanski nt. His right coronary seems to have no significant stenosis. There is ectasia and diffuse atherosc lerosis. Left ventricular ejection fraction is normal to mildly hyperdynamic. Left ventricular end- diastolic pressure 22. No LV pullback gradient and the recommendation is that he had bypass surgery because of the left main intimal flap and stenosis associated with an LA. Procedure In Detail: The patient was brought to the cardiac canvas shop laborer in a fasting state, sedated wit h Versed and fentanyl, titrated to an adequate level of sedation. Prepared and draped in usual steri le fashion. Right radial approach was used. The tissues around the right radial artery were anesthe tized with 1% lidocaine. The artery was entered using a 21-gauge needle. A 0.021 inch diameter guid ewire was used to cannulate the artery and then we used the modified Seldinger technique to place a 6 -[place] [employer] radial sheath. The sheath was flushed and a radial cocktail was given. in order to d o the angiogram, we used a TIG catheter by [employer] guided into the ascending aorta using fluoroscopy and a [employer] Glidewire with a short radius J-tip. We were able to angiogram right and left coronary as well as left ventricle using the same catheter after the decision was made to refer him to a surge on. The catheter was removed over a J-wire. The sheath was flushed, removed, and the arteriotomy wa s closed using a TR band. No complications from the procedure. The case was discussed with Dr. Xiao Urena a surgeon at [facility]. No complications from the procedure. Estimated Blood Loss: 5 cc. Epoxy Coatings Installer: Aleida Anand. CAPRICE/PARTH Voice ID: [id number] Report ID: [id number]
[2017-11-11] MEDS ORDERED: ATORVASTATIN 80 MG TAB PO SCH (21:00)
[2017-11-12] MEDS ORDERED: CLOPIDOGREL 75 MG TABLET PO SCH (09:00)
--- NOTE | 2017-11-12 10:38 | DS ---
Date of Discharge: 11/11/2017 Docent Coordinator: Dr. Cintron with Cardiology. Procedures: Cardiac catheterization on 11/11/2017. code status: Full Admitting Diagnoses: 1. Yam-NE-yonaikeln myocardial infarction. 2. Morbid obesity, BMI 40.7. 3. Lexnj-yd-hzsgece diastolic heart failure. 4. Chronic obstructive pulmonary disease. 5. Chronic bronchitis. 6. Morbid obesity. 7. Diabetes mellitus type 2 without complications with long-term use of insulin. 8. Gastroesophageal reflux disease without esophagitis. 9. Hyperlipidemia. 10. Essential hypertension. 11. Obstructive sleep apnea, chronic. Discharge Diagnoses: 1. Kvh-JV-odyiteldo myocardial infarction, status post cardiac cath, will need coronary artery bypass grafting. 2. Acute on chronic diastolic heart failure. 3. Chronic obstructive pulmonary disease. 4. Chronic bronchitis. 5. Morbid obesity, BMI of 40.7. 6. Diabetes mellitus type 2 with long-term use of insulin without complications. 7. Gastroesophageal reflux disease without esophagitis. 8. Hyperlipidemia. 9. Essential hypertension. 10. Obstructive sleep apnea. Hospital Course: The patient is a 66-year-old male with past medical history of heart disease, CHF, diabetes, hypertension, COPD, sleep apnea, who comes in with shortness of breath. The patient was found to have CHF, acute on chronic CHF exacerbation. He also had elevated troponin level and therefore was admitted to the hospital for further workup. The patient was started on chest pain guidelines. White count improved. Did have some low potassium which was replaced. EKG did not show any acute changes. He is seen by Cardiology and was taken for cardiac catheterization and was found to have multivessel disease , recommending CABG. EKG did show some atrial fibrillation. The patient was then recommended to be transferred to [facility] for coronary artery bypass graft and was transferred in stable condition. Physical Examination: General: Awake, alert, and oriented x3. No acute distress. CV: S1, S2. No murmurs. Respiratory: Moving air well bilaterally. No wheezing. Abdomen: Soft, nontender, nondistended. Positive bowel sounds. Extremities: No clubbing, cyanosis, or edema. Neurologic: Nonfocal. SA/MODL Voice ID: [id number] Report ID: [id number] [facility] HOSPITALBenjamin
== END 2017-11-11 14:33 | disposition short-term general hospital (02) ==
LOC: ER 11:48 → ERHOLD 15:19 → 2ND 16:54
PROVIDERS: ADMIT Family Medicine; ATTEND Family Medicine
DX: I21.4 Non-ST elevation (NSTEMI) myocardial infarction (principal); I25.10 Atherosclerotic heart disease of native coronary artery without angina pectoris; I50.33 Acute on chronic diastolic (congestive) heart failure; I11.0 Hypertensive heart disease with heart failure; J44.9 Chronic obstructive pulmonary disease, unspecified; E66.01 Morbid (severe) obesity due to excess calories; Z68.41 Body mass index [BMI] 40.0-44.9, adult; E11.9 Type 2 diabetes mellitus without complications; Z79.4 Long term (current) use of insulin; K21.9 Gastro-esophageal reflux disease without esophagitis; E78.5 Hyperlipidemia, unspecified; G47.33 Obstructive sleep apnea (adult) (pediatric); Z95.5 Presence of coronary angioplasty implant and graft
CPT/HCPCS: 36415; 71045; 71046; 80048; 80053; 80076; 81003; 82550; 82553 ×3; 82962 ×4; 83735 ×2; 83880 ×2; 84100; 84484 ×3; 85025 ×2; 85610; 85730; 93005 ×5; 93458; 94640; 96372; 96374; 99285; C1893; G0378 ×2; J1644; J1650; J2001; J2250 ×2; J3010; J3475 ×2; J0583

== ENCOUNTER 2018-01-22 12:00 | Emergency (ER) | payer OTHER ==
[2018-01-22] MEDS ORDERED: FUROSEMIDE 40 MG/4 ML VIAL ONE (12:37)
[2018-01-22] MEDS ORDERED: FENTANYL CITR 100 MCG/2 ML ONE (12:37)
--- NOTE | 2018-01-22 13:00 | RAD REPORT ---
EXAM DESCRIPTION: RAD - Chest Single View - 01/22/2018 12:55 pm CLINICAL HISTORY: Chest pain, shortness of breath COMPARISON: Two view chest November 11, 2017, portable chest November 10, 2017 TECHNIQUE: AP portable chest image was obtained 1251 hours . FINDINGS: Lung volumes are normal. Patient has underlying chronic interstitial lung disease. Interst itial markings in the mid and lower lung cody are accentuated compared to the prior study. Mild car diomegaly is present. Sternotomy wires have been placed since the prior study. Trachea is midline. Up per lobe vasculature is mildly prominent. No pneumothorax or measurable pleural effusion. Resuscitati on paddles overlie the chest. No acute aortic findings suspected. IMPRESSION: Mild failure/ volume overload pattern.
[2018-01-22] MEDS ORDERED: INSULIN -REGULAR HUMAN 50 UNIT/0.5 ML ML ONE (13:24)
[2018-01-22] MEDS ORDERED: HEPARIN/D5W 25,000 UNIT/500 ML BAG IV ONE (13:25)
--- NOTE | 2018-01-22 14:13 | EDPHYS ---
Physician Documentation [facility] Name: Ludwin Hsu Age: 67 yrs Sex: Male : 1950 Arrival Date: 01/22/2018 Time: 12:02 Bed 2 Private MD: ED Physician Nelson Jules HPI: 01/22 13:26 This 67 yrs old Male presents to ER via EMS with complaints of Chest Pain. jr8 13:26 The patient or guardian reports chest pain that is located primarily in the substernal jr8 area. Onset: acutely, today. The pain does not radiate. Associated signs and symptoms: Pertinent positives: shortness of breath. The chest pain is described as crushing, a pressure. Duration: The patient or guardian reports a single episode, that is still ongoing. Modifying factors: The symptoms are alleviated by nothing. the symptoms are aggravated by nothing. Severity of pain: At its worst the pain was moderate in the emergency department the pain is unchanged. It is unknown whether or not the patient has had similar symptoms in the past. The patient has not recently seen a physician. Patient with recent CABG approximately 3 weeks ago. Stated that he had been doing well up until about 9 am this morning when he had sudden onset chest pain and shortness of breath . Historical: - Allergies: 12:03 NKA; aa5 - Home Meds: 12:05 albuterol sulfate 90 mcg/actuation Inhl HFAA 1 puff every 6 hours [Active]; aspirin 81 aa5 mg Oral chew 1 tab once daily [Active]; carvedilol 25 mg Oral tab 1 tab 2 times per day [Active]; clopidogrel 75 mg Oral tab 1 tab once daily [Active]; furosemide 80 mg Oral tab 1 tab once daily [Active]; gabapentin 400 mg Oral cap 1 cap 3 times per day [Active]; glipizide 5 mg Oral tr24 2 tabs once daily [Active]; metformin 1,000 mg Oral tab 1 tab 2 times per day [Active]; metolazone 5 mg Oral tab 1 tab once daily [Active]; nifedipine 60 mg Oral TbER 1 tab once daily [Active]; pantoprazole 40 mg Oral TbEC 1 tab once daily [Active]; trazodone 100 mg Oral tab 1 tab at bedtime [Active]; - PMHx: 12:03 arteriosclerosis; CHF; chronic back pain; COPD; Diabetes - NIDDM; Hypertension; kidney aa5 disease; malignant neoplasm of epidimyis; Myocardial infarction; Pancreatitis; PTSD; tinnitus; - PSHx: 12:03 triple heart bypass; aa5 - Ebola Screening: : No symptoms or risks identified at this time. ROS: 13:26 Eyes: Negative for injury, pain, redness, and discharge, ENT: Negative for injury, jr8 pain, and discharge, Neck: Negative for injury, pain, and swelling, Abdomen/GI: Negative for abdominal pain, nausea, vomiting, diarrhea, and constipation, Back: Negative for injury and pain, MS/Extremity: Negative for injury and deformity, Skin: Negative for injury, rash, and discoloration, Neuro: Negative for headache, weakness, numbness, tingling, and seizure. 13:26 Cardiovascular: Positive for chest pain, edema, orthopnea. 13:26 Respiratory: Positive for dyspnea on exertion, orthopnea, shortness of breath, at rest. Exam: 13:26 Eyes: Pupils equal round and reactive to light, extra-ocular motions intact. Lids and jr8 lashes normal. Conjunctiva and sclera are non-icteric and not injected. Cornea within normal limits. Periorbital areas with no swelling, redness, or edema. ENT: Nares patent. No nasal discharge, no septal abnormalities noted. Tympanic membranes are normal and external auditory canals are clear. Oropharynx with no redness, swelling, or masses, exudates, or evidence of obstruction, uvula midline. Mucous membranes moist. Neck: Trachea midline, no thyromegaly or masses palpated, and no cervical lymphadenopathy. Supple, full range of motion without nuchal rigidity, or vertebral point tenderness. No Meningismus. Abdomen/GI: Soft, non-tender, with normal bowel sounds. No distension or tympany. No guarding or rebound. No evidence of tenderness throughout. Back: No spinal tenderness. No costovertebral tenderness. Full range of motion. Skin: Warm, dry with normal turgor. Normal color with no rashes, no lesions, and no evidence of cellulitis. MS/ Extremity: Pulses equal, no cyanosis. Neurovascular intact. Full, normal range of motion. Neuro: Awake and alert, GCS 15, oriented to person, place, time, and situation. Cranial nerves II-XII grossly intact. Motor strength 5/5 in all extremities. Sensory grossly intact. Cerebellar exam normal. Normal gait. 13:26 Cardiovascular: Rate: tachycardic, Rhythm: regular, Pulses: Pulses are 2+ in right radial artery and left radial artery. Heart sounds: normal, normal S1and S2, no S3 or S4, no murmur, no rub, no gallop, Edema: 1+ edema to level of left midcalf, left ankle, right midcalf and right ankle. 13:26 Respiratory: moderate respiratory distress is noted, Respirations: labored breathing, tachypnea, Breath sounds: rales, that are mild, are located in both bases. Vital Signs: 12:05 BP 149 / 102; Pulse 128; Resp 30 S; Temp 98.0(O); Pulse Ox 100% on Non-rebreather mask; aa5 Pain 8/10; 12:15 BP 109 / 97; Pulse 128; Resp 26 S; Pulse Ox 100% on Non-rebreather mask; aa5 12:25 BP 133 / 94; Pulse 128; Resp 26 S; Pulse Ox 100% on Non-rebreather mask; aa5 12:30 BP 142 / 88; Pulse 123; Resp 24 S; Pulse Ox 96% on BiPAP; aa5 12:45 BP 137 / 77; Pulse 120; Resp 22 S; Temp 98.9(C); Pulse Ox 94% on BiPAP; aa5 13:00 BP 130 / 87; Pulse 115; Resp 22 S; Pulse Ox 94% on BiPAP; aa5 13:10 BP 130 / 96; Pulse 112; Resp 22; Temp 98.7(C); Pulse Ox 95% on BiPAP; aa5 13:30 BP 125 / 84; Pulse 109; Resp 20 S; Temp 98.6(C); Pulse Ox 98% on BiPAP; aa5 13:38 Weight 131.54 kg; iw 13:50 BP 133 / 78; Pulse 106; Resp 18 S; Temp 98.4(C); Pulse Ox 98% on BiPAP; aa5 14:10 BP 127 / 80; Pulse 110; Resp 18; Temp 98.2(C); Pulse Ox 99% on BiPAP; dh3 14:30 BP 133 / 80; Pulse 105; Resp 18 S; Temp 98.2(C); Pulse Ox 97% on BiPAP; aa5 MDM: 12:10 Patient medically screened. jr8 13:26 The patient was not given aspirin in the Emergency Department. Administered by EMS. jr8 Data reviewed: vital signs, nurses notes, lab test result(s), EKG, radiologic studies, plain films, ultrasound. Data interpreted: Pulse oximetry: on 100 % NRB is 100 %. Counseling: I had a detailed discussion with the patient and/or guardian regarding: the historical points, exam findings, and any diagnostic results supporting the discharge/admit diagnosis, lab results, radiology results, the need to transfer to another facility, [facility] does not immediately have the required specialist. 14:10 ED course: [facility] CCU accepted patient . jr8 01/22 12:56 Order name: Urine Dipstick--Ancillary (enter results) rn 01/22 14:16 Order name: Urine Dipstick-Ancillary; Complete Time: 14:31 EDMS 01/22 13:02 Order name: RAD; Complete Time: 13:30 EDMS 01/22 14:27 Order name: Protime (+INR); Complete Time: 14:31 EDMS 01/22 14:27 Order name: PTT, Activated Partial Thromb; Complete Time: 14:31 EDMS 01/22 14:51 Order name: ABG Arterial Blood Gas; Complete Time: 15:12 EDMS Administered Medications: 12:31 Drug: Lasix 40 mg Route: IVP; Site: right antecubital; aa5 12:40 Follow up: Response: No adverse reaction aa5 12:31 Drug: fentaNYL (PF) 25 mcg Route: IVP; Site: right antecubital; aa5 13:00 Follow up: Response: No adverse reaction; Pain is decreased aa5 13:18 Drug: Heparin (DC-Bolus No thrombolytic) - HEParin 60 units/kg {Co-Signature: aa5 iw (Christie Amaya RN).} {Note: VO received to only administer 4,000 units. .} Route: IVP; Site: right antecubital; 13:25 Follow up: Response: No adverse reaction aa5 13:18 Drug: Heparin (DC Drip) 12 units/kg/hr - (HEParin 27753 units, D5W 500 ml) iw {Co-Signature: aa5 (Christie Amaya RN).} Route: IV; Rate: calculated rate; Site: right antecubital; 14:40 Follow up: IV Status: Infusion continued upon transfer aa5 13:18 Drug: Insulin Regular Human 10 units {Co-Signature: aa5 (Christie Amaya RN).} Route: iw IVP; Site: right antecubital; 14:40 Follow up: Response: No adverse reaction; No adverse reaction. FSBG has decreased aa5 Point of Care Testing: Blood Glucose: 12:48 Blood Glucose: 316 mg/dL; aa5 14:35 Blood Glucose: 215 mg/dL; dh3 Ranges: Critical Glucose Levels:Adult <50 mg/dl or >400 mg/dl <40 mg/dl or >180 mg/dl Disposition: 15:15 Co-signature as Attending Physician, Nelson Jules MD. rn Disposition: 01/22/18 14:11 Transfer ordered to [facility]. Diagnosis are Non-ST elevation (NSTEMI) myocardial infarction, Acute systolic (congestive) heart failure, Respiratory failure, unspecified with hypercapnia. - Reason for transfer: Higher level of care. - Accepting physician is [facility]. - Condition is Fair. - Problem is new. - Symptoms have improved. Signatures: Dispatcher [employer] EDMS Micheline Pop RN RN iw Nieto, Roman, MD MD rn Calderon, Audri, RN RN aa5 Sammy Cook PA PA jr8 Theo Carlos RN RN jl7 Christie Amaya RN aa5 Corrections: (The following items were deleted from the chart) 14:53 14:11 01/22/2018 14:11 Transfer ordered to [facility]. Diagnosis is jl7 Non-ST elevation (NSTEMI) myocardial infarction; Acute systolic (congestive) heart failure; Respiratory failure, unspecified with hypercapnia. Reason for transfer: Higher level of care. Accepting physician is [facility]. Condition is Fair. Problem is new. Symptoms have improved. jr8
--- NOTE | 2018-01-22 14:13 | ER ---
Nurse's Notes [facility] Name: Ludwin Hsu Age: 67 yrs Sex: Male : 1950 Arrival Date: 01/22/2018 Time: 12:02 Bed 2 Private MD: Diagnosis: Non-ST elevation (NSTEMI) myocardial infarction;Acute systolic (congestive) heart failure;Respiratory failure, unspecified with hypercapnia Presentation: 01/22 12:03 Presenting complaint: Patient states: mid-sternal chest pain and SOB that began today aa5 at 0900. EMS reports pt was diaphroretic and cool upon arrival, BP was 77/46, and O2 sat was 70% RA. EMS reports O2 sat increased to 96% via non-rebreather and BP increased to 130's systolic. Pt currently diaphoretic, reports chest pain 8/10. Pt also reports having triple heart bypass approximately 3 weeks ago at [facility] and reports taking Plavix. 12:03 Transition of care: patient was not received from another setting of care. Onset of aa5 symptoms was January 22, 2018. Risk Assessment: Do you want to hurt yourself or someone else? Patient reports no desire to harm self or others. Care prior to arrival: Medication(s) given: ASA, 81 mg, x 4, Normal saline infusion, 250mL bolus zofran 4 mg, IV initiated. 18 GA, in the left antecubital area, 20 G to R hand noted to be infiltrated and was dc'd by me, catheter intact, bleeding controlled. Glucose check: 400. 12:03 Method Of Arrival: EMS: [facility] aa5 12:03 Acuity: NGUYEN 1 aa5 12:03 Initial Sepsis Screen: Does the patient meet any 2 criteria? RR > 20 per min. HR > 90 aa5 bpm. Yes Does the patient have a suspected source of infection? No. Patient's initial sepsis screen is negative. Historical: - Allergies: 12:03 NKA; aa5 - Home Meds: 12:05 albuterol sulfate 90 mcg/actuation Inhl HFAA 1 puff every 6 hours [Active]; aspirin 81 aa5 mg Oral chew 1 tab once daily [Active]; carvedilol 25 mg Oral tab 1 tab 2 times per day [Active]; clopidogrel 75 mg Oral tab 1 tab once daily [Active]; furosemide 80 mg Oral tab 1 tab once daily [Active]; gabapentin 400 mg Oral cap 1 cap 3 times per day [Active]; glipizide 5 mg Oral tr24 2 tabs once daily [Active]; metformin 1,000 mg Oral tab 1 tab 2 times per day [Active]; metolazone 5 mg Oral tab 1 tab once daily [Active]; nifedipine 60 mg Oral TbER 1 tab once daily [Active]; pantoprazole 40 mg Oral TbEC 1 tab once daily [Active]; trazodone 100 mg Oral tab 1 tab at bedtime [Active]; - PMHx: 12:03 arteriosclerosis; CHF; chronic back pain; COPD; Diabetes - NIDDM; Hypertension; kidney aa5 disease; malignant neoplasm of epidimyis; Myocardial infarction; Pancreatitis; PTSD; tinnitus; - PSHx: 12:03 triple heart bypass; aa5 - Ebola Screening: : No symptoms or risks identified at this time. Screenin:30 Abuse screen: Denies threats or abuse. Nutritional screening: No deficits noted. aa5 Tuberculosis screening: No symptoms or risk factors identified. Fall Risk Fall in past 12 months (25 points). No secondary diagnosis (0 pts). IV access (20 points). Mental Status- Overestimates/Forgets Limitations (15 pts.). Total Sagastume Fall Scale indicates High Risk Score (45 or more points). Fall prevention measures have been instituted. Side Rails Up X 2 Placed Close to Nursing Station. Assessment: 12:05 General: Appears distressed, uncomfortable, obese, Behavior is cooperative. Pain: aa5 Complains of pain in mid-sternal area Pain does not radiate. Pain currently is 8 out of 10 on a pain scale. Quality of pain is described as pressure, sharp, Pain began today around 0900 Is continuous. Neuro: Level of Consciousness is awake, alert, obeys commands, Oriented to person, place, time, situation. Cardiovascular: Reports chest pain, Heart tones S1 S2 present 1+ pitting edema noted to nickie lower extremities Rhythm is sinus tachycardia. Respiratory: Reports shortness of breath Airway is patent Respiratory effort is labored, Respiratory pattern is tachypnea Breath sounds are diminished bilaterally. GI: Abdomen is round obese, Bowel sounds present X 4 quads. Abd is soft and non tender X 4 quads. Patient currently denies nausea, vomiting. : No signs and/or symptoms were reported regarding the genitourinary system. EENT: No signs and/or symptoms were reported regarding the EENT system. Derm: Skin is diaphoretic, Skin is pale, Skin temperature is cool. Musculoskeletal: Range of motion: intact in all extremities. 12:30 Reassessment: Pt being placed on Bi-PAP by RT per PA VO. aa5 12:35 Reassessment: BI-PAP settings: IPAP 16, EPAP 7, Rate 14, O2 40%. aa5 12:45 Reassessment: Pt tolerating Bi-PAP well. Pt reports pain has decreased to 6/10 on a aa5 pain scale at this time. Reports SOB has improved. . Derm: Skin is clammy, Skin is pale, Skin temperature is cool. 13:00 Reassessment: Pt resting in bed with eyes closed, respirations are even and unlabored, aa5 skin is cool/clammy/pale. Sinus tach on monitor. Pt awakens easily to verbal stimuli . 13:00 Pain: Pain currently is 6 out of 10 on a pain scale. aa5 13:30 Reassessment: Pt resting in bed with eyes closed, respirations are even and unlabored, aa5 tolerating Bi-PAP well. Skin is normal/cool/dry. . 14:00 Neuro: Level of Consciousness is awake, alert, obeys commands, Oriented to person, aa5 place, time, situation. Cardiovascular: Rhythm is sinus tachycardia. Respiratory: Airway is patent Respiratory effort is even, unlabored, Respiratory pattern is regular, symmetrical. Derm: Skin is pink, warm \T\ dry. 14:00 Reassessment: Patient and/or family updated on plan of care and expected duration. Pain aa5 level reassessed. Pain: Pain currently is 4 out of 10 on a pain scale. 14:30 Reassessment: Patient and/or family updated on plan of care and expected duration. Pain aa5 level reassessed. Patient is alert, oriented x 3, equal unlabored respirations, skin warm/dry/pink. Patient states symptoms have improved. Pain: Pain currently is 4 out of 10 on a pain scale. Cardiovascular: Rhythm is sinus tachycardia. Vital Signs: 12:05 BP 149 / 102; Pulse 128; Resp 30 S; Temp 98.0(O); Pulse Ox 100% on Non-rebreather mask; aa5 Pain 8/10; 12:15 BP 109 / 97; Pulse 128; Resp 26 S; Pulse Ox 100% on Non-rebreather mask; aa5 12:25 BP 133 / 94; Pulse 128; Resp 26 S; Pulse Ox 100% on Non-rebreather mask; aa5 12:30 BP 142 / 88; Pulse 123; Resp 24 S; Pulse Ox 96% on BiPAP; aa5 12:45 BP 137 / 77; Pulse 120; Resp 22 S; Temp 98.9(C); Pulse Ox 94% on BiPAP; aa5 13:00 BP 130 / 87; Pulse 115; Resp 22 S; Pulse Ox 94% on BiPAP; aa5 13:10 BP 130 / 96; Pulse 112; Resp 22; Temp 98.7(C); Pulse Ox 95% on BiPAP; aa5 13:30 BP 125 / 84; Pulse 109; Resp 20 S; Temp 98.6(C); Pulse Ox 98% on BiPAP; aa5 13:38 Weight 131.54 kg; iw 13:50 BP 133 / 78; Pulse 106; Resp 18 S; Temp 98.4(C); Pulse Ox 98% on BiPAP; aa5 14:10 BP 127 / 80; Pulse 110; Resp 18; Temp 98.2(C); Pulse Ox 99% on BiPAP; dh3 14:30 BP 133 / 80; Pulse 105; Resp 18 S; Temp 98.2(C); Pulse Ox 97% on BiPAP; aa5 ED Course: 12:02 Patient arrived in ED. aa5 12:03 Patient has correct armband on for positive identification. Placed in gown. Bed in low aa5 position. Call light in reach. Side rails up X2. playground monitor on. Pulse ox on. NIBP on. 12:03 Arm band placed on. aa5 12:05 Oxygen administration via non-rebreather mask. aa5 12:05 No provider procedures requiring assistance completed. aa5 12:06 Initial lab(s) drawn, by ED staff, sent to lab. dh3 12:10 Sammy Cook PA is PHCP. jr8 12:10 Nelson Jules MD is Attending Physician. jr8 12:14 Triage completed. aa5 12:23 Inserted saline lock: 22 gauge in right antecubital area, using aseptic technique. aa5 Maintain EMS IV. Dressing intact. Good blood return noted. Gauge \T\ site: 18 G to L AC . 12:26 Christie Amaya, RN is Primary Nurse. aa5 12:45 Urine collected: Smith catheter specimen, cloudy, Amount Returned: 170mL. aa5 12:45 Smith cath inserted, using sterile technique, 18 Fr., by imaging engineer, balloon inflated, to aa5 gravity drainage, urine specimen collected. 12:55 X-ray completed. Portable x-ray completed in exam room. Patient tolerated procedure mh1 well. 14:45 Patient admitted, IV remains in place. aa5 Administered Medications: 12:31 Drug: Lasix 40 mg Route: IVP; Site: right antecubital; aa5 12:40 Follow up: Response: No adverse reaction aa5 12:31 Drug: fentaNYL (PF) 25 mcg Route: IVP; Site: right antecubital; aa5 13:00 Follow up: Response: No adverse reaction; Pain is decreased aa5 13:18 Drug: Heparin (LA-Bolus No thrombolytic) - HEParin 60 units/kg {Co-Signature: aa5 iw (Christie Amaya RN).} {Note: VO received to only administer 4,000 units. .} Route: IVP; Site: right antecubital; 13:25 Follow up: Response: No adverse reaction aa5 13:18 Drug: Heparin (LA Drip) 12 units/kg/hr - (HEParin 60028 units, D5W 500 ml) iw {Co-Signature: aa5 (Christie Amaya RN).} Route: IV; Rate: calculated rate; Site: right antecubital; 14:40 Follow up: IV Status: Infusion continued upon transfer aa5 13:18 Drug: Insulin Regular Human 10 units {Co-Signature: aa5 (Christie Amaya RN).} Route: iw IVP; Site: right antecubital; 14:40 Follow up: Response: No adverse reaction; No adverse reaction. FSBG has decreased aa5 Point of Care Testing: Blood Glucose: 12:48 Blood Glucose: 316 mg/dL; aa5 14:35 Blood Glucose: 215 mg/dL; dh3 Ranges: Output: 14:35 Urine: 925ml (Smith); Total: 925ml. aa5 Outcome: 14:11 ER care complete, transfer ordered by MD. stearns 14:45 [facility]red by helicopter to [facility], Transfer form completed. aa5 X-rays sent w/ patient. Note: Report given to STEPHEN Shaikh (at [facility]) and report given to life flight . 14:45 Condition: improved aa5 14:45 Discharge instructions given to patient, Instructed on the need for transfer, Demonstrated understanding of instructions. 14:53 Patient left the ED. jl7 Signatures: Johanna Gray 1 Micheline Pop RN RN Christie Amaya RN RN aa5 Sammy Cook PA PA 8 Theo Carlos RN RN 7 Barb Malcolm 3 Christie Amaya RN aa5 Corrections: (The following items were deleted from the chart) 12:15 12:03 Care prior to arrival: IV initiated. 18 GA, in the left antecubital area, 20 G to aa5 R hand noted to be infiltrated and was dc'd by me, catheter intact, bleeding controlled. aa5 12:55 12:51 Urine collected: Smith catheter specimen, cloudy, Amount Returned: 170mL 3 aa5 13:00 12:03 Care prior to arrival: Medication(s) given: ASA, 81 mg, x 4, zofran 4 mg, IV aa5 initiated. 18 GA, in the left antecubital area, 20 G to R hand noted to be infiltrated and was dc'd by me, catheter intact, bleeding controlled. Glucose check: 400 aa5 15:15 12:45 Derm: Skin is clammy, Skin is normal, Skin temperature is cool aa5 aa5
[2018-01-22 14:14] LABS: Urine Blood 3+ (NEG); Urine Glucose 2+ (NEG); Urine Protein 3+ (NEG); Urine Specific Gravity >1.030 (1.005-1.030)
[2018-01-22 14:15] LABS: Magnesium 2.1 mg/dL (1.8-2.4); Potassium 4.7 mmol/L (3.5-5.1); Troponin (Emerg Dept Use Only) 0.26 ng/mL (0.0-0.045)
[2018-01-22 14:15] LABS: Albumin 3.5 g/dL (3.4-5.0); Bilirubin Direct 0.2 mg/dL (0-0.2); Bilirubin Total 0.5 mg/dL (0.2-1.0); Protein, Total 7.9 g/dL (6.4-8.2)
[2018-01-22 14:25] LABS: Protime INR 1.07
[2018-01-22 14:49] LABS: Blood Gas Oxyhemoglobin 94.5 % (94-97); Blood O2 Saturation 98.3 % (92-98.5)
[2018-01-22 15:08] VITALS: BP 127/80; TEMP 98.2; O2SAT 99
[2018-01-22 16:41] LABS: Absolute Lymphocytes (CBC) 2.3 K/uL (0.7-4.9); Absolute Neutrophil 13.8 K/uL (1.8-8.0); Basophils % 0.7 % (0-1.3); Eosinophils % 2.4 % (0-4.4); Hematocrit 36.3 % (39.6-49.0); Lymphocytes % 12.9 % (15.3-44.8); MCH 27.3 pg (27.0-35.0); MCV 86.1 fL (80-100); Monocytes % 5.5 % (3.3-12.3); RBC Red Blood Cell Count 4.22 M/uL (4.33-5.43)
[2018-01-22 17:04] LABS: Urine Amorphous Sediment 4+ /HPF (NONE SEEN); Urine Bacteria 20-50 /HPF (NONE SEEN); Urine Culture Reflex Order REFLEXED
[2018-01-22 17:47] LABS: Urine Blood TRACE (NEG); Urine Glucose 2+ (NEG); Urine Protein 3+ (NEG); Urine Specific Gravity >1.030 (1.005-1.030)
== END 2018-01-22 14:53 | disposition short-term general hospital (02) ==
LOC: ER 12:00
DX: I21.4 Non-ST elevation (NSTEMI) myocardial infarction (principal); I50.21 Acute systolic (congestive) heart failure; J96.92 Respiratory failure, unspecified with hypercapnia; I10 Essential (primary) hypertension; E11.9 Type 2 diabetes mellitus without complications; J44.9 Chronic obstructive pulmonary disease, unspecified; I50.9 Heart failure, unspecified; Z79.82 Long term (current) use of aspirin
CPT/HCPCS: 36415; 71045; 80048; 80076; 82805; 83735; 83880; 84484; 85025; 85610; 85730; 87086; 87088; 93005; 93306; 94660; J3010; 81003; 81015; 82962

== ENCOUNTER 2018-02-16 21:41 | Observation (INO) | payer OTHER ==
[2018-02-16 22:15] LABS: Absolute Lymphocytes (CBC) 2.6 K/uL (0.7-4.9); Absolute Monocytes 0.7 K/uL (0.1-1.3); Absolute Neutrophil 5.7 K/uL (1.8-8.0); Basophils % 0.8 % (0-1.3); Eosinophils % 6.1 % (0-4.4); Hematocrit 33.6 % (39.6-49.0); Lymphocytes % 26.8 % (15.3-44.8); MCH 26.9 pg (27.0-35.0); MCV 80.5 fL (80-100); MPV 8.6 fL (7.6-11.3); Monocytes % 7.2 % (3.3-12.3); Protime INR 1.06; RBC Red Blood Cell Count 4.18 M/uL (4.33-5.43)
[2018-02-16] MEDS ORDERED: ALBUTEROL 2.5 MG/3 ML NEB SOL ONE ×2 (22:18→23:40)
[2018-02-16] MEDS ORDERED: IPRATROPIUM BROM 0.5MG/2.5ML ONE ×2 (22:18→23:40)
[2018-02-16 22:29] LABS: ALT/SGPT 14 U/L (12-78); AST/SGOT 11 U/L (15-37); Albumin 3.2 g/dL (3.4-5.0); Alkaline Phosphatase 95 U/L (45-117); BUN Blood Urea Nitrogen 28 mg/dL (7-18); Bicarbonate 31 mmol/L (21-32); Bilirubin Direct < 0.1 mg/dL (0-0.2); Bilirubin Total 0.2 mg/dL (0.2-1.0); Glucose Level 179 mg/dL (74-106); Magnesium 1.9 mg/dL (1.8-2.4); NT PRO-BNP 1319 pg/mL (<125); Potassium 3.1 mmol/L (3.5-5.1); Protein, Total 7.2 g/dL (6.4-8.2); Sodium Level 139 mmol/L (136-145); Troponin (Emerg Dept Use Only) 0.04 ng/mL (0.0-0.045)
[2018-02-16] MEDS ORDERED: FUROSEMIDE 40 MG/4 ML VIAL ONE (23:41)
[2018-02-16] MEDS ORDERED: POTASSIUM 25 MEQ EFFERV TAB ONE (23:41)
--- NOTE | 2018-02-17 00:48 | ER ---
Nurse's Notes [facility] Name: Ludwin Hsu Age: 67 yrs Sex: Male : 1950 Arrival Date: 02/16/2018 Time: 21:42 Bed 7 Private MD: Jessica Ferrara H Diagnosis: Systolic (congestive) heart failure;Chronic obstructive pulmonary disease with (acute) exacerbation Presentation: 02/16 21:48 Presenting complaint: Patient states: SOB that started suddenly today. Denies CP. aj Transition of care: patient was not received from another setting of care. Onset of symptoms was February 16, 2018. Risk Assessment: Do you want to hurt yourself or someone else? Patient reports no desire to harm self or others. Initial Sepsis Screen: Does the patient meet any 2 criteria? No. Patient's initial sepsis screen is negative. Does the patient have a suspected source of infection? No. Patient's initial sepsis screen is negative. Care prior to arrival: None. 21:48 Method Of Arrival: Ambulatory 21:48 Acuity: NGUYEN 2 aj Triage Assessment: 21:53 General: Appears in no apparent distress. comfortable, Behavior is calm, cooperative, aj appropriate for age. Pain: Denies pain. Neuro: Level of Consciousness is awake, alert, obeys commands, Oriented to person, place, time, situation, Appropriate for age. Respiratory: Reports shortness of breath at rest Airway is patent Respiratory effort is even, labored, with nasal flaring, pursed lip, Respiratory pattern is symmetrical, tachypnea Onset: The symptoms/episode began/occurred suddenly, the patient has moderate shortness of breath. Respiratory: Respiratory effort is. Derm: Skin is intact, is healthy with good turgor, Skin is pink, warm \T\ dry. normal. Historical: - Allergies: 21:53 NKA; aj - Home Meds: 21:53 albuterol sulfate 90 mcg/actuation Inhl HFAA 1 puff every 6 hours [Active]; aspirin 81 aj mg Oral chew 1 tab once daily [Active]; carvedilol 25 mg Oral tab 1 tab 2 times per day [Active]; clopidogrel 75 mg Oral tab 1 tab once daily [Active]; furosemide 80 mg Oral tab 1 tab once daily [Active]; gabapentin 400 mg Oral cap 1 cap 3 times per day [Active]; glipizide 5 mg Oral tr24 2 tabs once daily [Active]; metformin 1,000 mg Oral tab 1 tab 2 times per day [Active]; metolazone 5 mg Oral tab 1 tab once daily [Active]; nifedipine 60 mg Oral TbER 1 tab once daily [Active]; pantoprazole 40 mg Oral TbEC 1 tab once daily [Active]; trazodone 100 mg Oral tab 1 tab at bedtime [Active]; - PMHx: 21:53 arteriosclerosis; chronic back pain; COPD; Diabetes - NIDDM; CHF; Hypertension; kidney aj disease; malignant neoplasm of epidimyis; Myocardial infarction; Pancreatitis; PTSD; tinnitus; - PSHx: 21:53 triple heart bypass; aj - Immunization history:: Adult Immunizations up to date. - Social history:: Smoking status: Patient uses tobacco products, smokes one pack cigarettes per day. - Ebola Screening: : Patient negative for fever greater than or equal to 101.5 degrees Fahrenheit, and additional compatible Ebola Virus Disease symptoms Patient denies exposure to infectious person Patient denies travel to an Ebola-affected area in the 21 days before illness onset No symptoms or risks identified at this time. Screenin:18 Abuse screen: Denies threats or abuse. Denies injuries from another. Nutritional lp1 screening: No deficits noted. Tuberculosis screening: No symptoms or risk factors identified. Fall Risk None identified. Assessment: 22:00 Reassessment: Patient states more comfort sitting up at bedside. General: Appears in no lp1 apparent distress. Behavior is calm, cooperative, appropriate for age. Pain: Denies pain. Neuro: Level of Consciousness is awake, alert, obeys commands, Oriented to person, place, time, situation. Cardiovascular: Denies chest pain, Patient's skin is warm and dry. Rhythm is sinus rhythm. Respiratory: Reports shortness of breath at rest resolved at this time Airway is patent Respiratory effort is even, unlabored, Respiratory pattern is regular, symmetrical, Breath sounds are diminished bilaterally. Onset: The symptoms/episode began/occurred suddenly, the patient has mild shortness of breath. GI: Abdomen is obese. : No signs and/or symptoms were reported regarding the genitourinary system. EENT: No signs and/or symptoms were reported regarding the EENT system. Derm: Skin is pink, warm \T\ dry. Musculoskeletal: Circulation, motion, and sensation intact. 23:00 Reassessment: Patient appears in no apparent distress at this time. Patient and/or lp1 family updated on plan of care and expected duration. Pain level reassessed. Patient sitting up in chair for comfort;. 02/17 00:00 Reassessment: Patient appears in no apparent distress at this time. Patient and/or lp1 family updated on plan of care and expected duration. Pain level reassessed. Patient aware of pending admission. 01:00 Reassessment: Patient appears in no apparent distress at this time. No changes from lp1 previously documented assessment. Patient resting in chair, eyes closed, respirations unlabored. 01:43 Reassessment: Attempted to call report at this time, nurse will call back. lp1 Vital Signs: 02/16 21:53 BP 123 / 71; Pulse 75; Resp 28; Pulse Ox 93% on R/A; Weight 129.27 kg; Height 6 ft. 0 aj in. (182.88 cm); 22:45 Temp 98.5(O); lp1 23:00 BP 107 / 78; Pulse 61; Resp 18; Pulse Ox 98% on R/A; lp1 23:48 BP 132 / 70; Pulse 67; Resp 22; Pulse Ox 100% on Nebulizer Mask; lp1 02/17 00:30 BP 109 / 74; Pulse 65; Resp 21; Pulse Ox 96% on R/A; lp1 01:15 BP 106 / 65; Pulse 68; Resp 18; Pulse Ox 98% on R/A; lp1 02:07 BP 118 / 60; Pulse 74; Resp 18; Pulse Ox 96% on R/A; lp1 02/16 21:53 Body Mass Index 38.65 (129.27 kg, 182.88 cm) ED Course: 02/16 21:42 Patient arrived in ED. ds1 21:44 Jessica Ferrara DO is Private Physician. ds1 21:50 Triage completed. aj 21:52 Kavin Mcmullen MD is Attending Physician. gs 21:53 Arm band placed on left wrist. Patient placed in an exam room, on a stretcher, on nuclear monitoring technician, on pulse oximetry. EKG completed in triage. Results shown to MD. 22:09 Alana Alfaro, STEPHEN is Primary Nurse. lp1 22:19 Patient has correct armband on for positive identification. Bed in low position. Call lp1 light in reach. gambling monitor on. Pulse ox on. NIBP on. 22:44 XRAY Chest (1 view) In Process Unspecified. EDWV 02/17 00:47 Topher Yuen MD is Hospitalizing Provider. gs 01:41 No provider procedures requiring assistance completed. Patient admitted, IV remains in lp1 place. Administered Medications: 02/16 22:14 Drug: Albuterol 2.5 mg Route: Inhalation; lp1 22:14 Drug: AtroVENT Aerosol 0.5 mg Route: Inhalation; lp1 23:46 Drug: AtroVENT Aerosol 0.5 mg Route: Inhalation; lp1 23:46 Drug: Potassium Effervescent Tablet 50 mEq Route: PO; lp1 02/17 01:03 Follow up: Response: No adverse reaction lp1 02/16 23:46 Drug: Lasix 40 mg Route: IVP; Site: right forearm; lp1 02/17 01:03 Follow up: Response: No adverse reaction lp1 02/16 23:47 Drug: Albuterol 2.5 mg Route: Inhalation; lp1 02/17 01:07 Drug: predniSONE 40 mg Route: PO; lp1 01:42 Follow up: Response: No adverse reaction 1 Outcome: 00:47 Decision to Hospitalize by Provider. gs 01:41 Condition: stable lp1 01:41 Instructed on the need for admit. 01:59 Admitted to Med/surg accompanied by tech, via wheelchair, room 230, with chart, Report lp1 called to STEPHEN Crawford 02:10 Patient left the ED. [facility] Signatures: Dispatcher [employer] EDWV Andreea Parks RN RN aj Sanford, Demi Alana Silva RN RN 1 Kavin Mcmullen MD MD Corrections: (The following items were deleted from the chart) 02:00 01:59 Admitted to [place] [id number]
--- NOTE | 2018-02-17 00:48 | EDPHYS ---
Physician Documentation [facility] Name: Ludwin Hsu Age: 67 yrs Sex: Male : 1950 Arrival Date: 02/16/2018 Time: 21:42 Bed 7 Private MD: Jessica Ferrara H ED Physician Kavin Mcmullen HPI: 02/17 00:36 This 67 yrs old Male presents to ER via Ambulatory with complaints of gs Breathing Difficulty. 00:36 The patient has shortness of breath at rest. Onset: The symptoms/episode began/occurred gs 2 day(s) ago, and became worse and became persistent. Duration: The symptoms are continuous. The patient's shortness of breath has no apparent modifying factors. The patient's shortness of breath is aggravated by exertion. Associated signs and symptoms: Pertinent negatives: chest pain. Severity of symptoms: At their worst the symptoms were moderate in the emergency department the symptoms are unchanged. The patient has experienced similar episodes in the past, several times. Historical: - Allergies: 02/16 21:53 NKA; aj - Home Meds: 21:53 albuterol sulfate 90 mcg/actuation Inhl HFAA 1 puff every 6 hours [Active]; aspirin 81 aj mg Oral chew 1 tab once daily [Active]; carvedilol 25 mg Oral tab 1 tab 2 times per day [Active]; clopidogrel 75 mg Oral tab 1 tab once daily [Active]; furosemide 80 mg Oral tab 1 tab once daily [Active]; gabapentin 400 mg Oral cap 1 cap 3 times per day [Active]; glipizide 5 mg Oral tr24 2 tabs once daily [Active]; metformin 1,000 mg Oral tab 1 tab 2 times per day [Active]; metolazone 5 mg Oral tab 1 tab once daily [Active]; nifedipine 60 mg Oral TbER 1 tab once daily [Active]; pantoprazole 40 mg Oral TbEC 1 tab once daily [Active]; trazodone 100 mg Oral tab 1 tab at bedtime [Active]; - PMHx: 21:53 arteriosclerosis; chronic back pain; COPD; Diabetes - NIDDM; CHF; Hypertension; kidney aj disease; malignant neoplasm of epidimyis; Myocardial infarction; Pancreatitis; PTSD; tinnitus; - PSHx: 21:53 triple heart bypass; aj - Immunization history:: Adult Immunizations up to date. - Social history:: Smoking status: Patient uses tobacco products, smokes one pack cigarettes per day. - Ebola Screening: : Patient negative for fever greater than or equal to 101.5 degrees Fahrenheit, and additional compatible Ebola Virus Disease symptoms Patient denies exposure to infectious person Patient denies travel to an Ebola-affected area in the 21 days before illness onset No symptoms or risks identified at this time. ROS: 02/17 00:36 All other systems are negative. gs Exam: 00:36 Head/Face: Normocephalic, atraumatic. Eyes: Pupils equal round and reactive to light, gs extra-ocular motions intact. Lids and lashes normal. Conjunctiva and sclera are non-icteric and not injected. Cornea within normal limits. Periorbital areas with no swelling, redness, or edema. ENT: Nares patent. No nasal discharge, no septal abnormalities noted. Tympanic membranes are normal and external auditory canals are clear. Oropharynx with no redness, swelling, or masses, exudates, or evidence of obstruction, uvula midline. Mucous membranes moist. Neck: Trachea midline, no thyromegaly or masses palpated, and no cervical lymphadenopathy. Supple, full range of motion without nuchal rigidity, or vertebral point tenderness. No Meningismus. Chest/axilla: Normal chest wall appearance and motion. Nontender with no deformity. No lesions are appreciated. Cardiovascular: Regular rate and rhythm with a normal S1 and S2. No gallops, murmurs, or rubs. Normal PMI, no JVD. No pulse deficits. 00:36 Abdomen/GI: Soft, non-tender, with normal bowel sounds. No distension or tympany. No guarding or rebound. No evidence of tenderness throughout. Back: No spinal tenderness. No costovertebral tenderness. Full range of motion. Skin: Warm, dry with normal turgor. Normal color with no rashes, no lesions, and no evidence of cellulitis. Neuro: Awake and alert, GCS 15, oriented to person, place, time, and situation. Cranial nerves II-XII grossly intact. Motor strength 5/5 in all extremities. Sensory grossly intact. Cerebellar exam normal. Normal gait. 00:36 Constitutional: The patient appears alert, awake. 00:36 ECG was reviewed by the Attending Physician. 00:36 Respiratory: moderate respiratory distress is noted, Respirations: tachypnea, that is moderate, Breath sounds: decreased breath sounds, that are moderate, are located in both bases. 00:36 Musculoskeletal/extremity: Circulation is intact in all extremities. Edema, 2+ to the left ankle and right ankle is noted, Sensation intact. Vital Signs: 02/16 21:53 BP 123 / 71; Pulse 75; Resp 28; Pulse Ox 93% on R/A; Weight 129.27 kg; Height 6 ft. 0 aj in. (182.88 cm); 22:45 Temp 98.5(O); lp1 23:00 BP 107 / 78; Pulse 61; Resp 18; Pulse Ox 98% on R/A; lp1 23:48 BP 132 / 70; Pulse 67; Resp 22; Pulse Ox 100% on Nebulizer Mask; lp1 02/17 00:30 BP 109 / 74; Pulse 65; Resp 21; Pulse Ox 96% on R/A; lp1 01:15 BP 106 / 65; Pulse 68; Resp 18; Pulse Ox 98% on R/A; lp1 02:07 BP 118 / 60; Pulse 74; Resp 18; Pulse Ox 96% on R/A; lp1 02/16 21:53 Body Mass Index 38.65 (129.27 kg, 182.88 cm) aj MDM: 02/16 22:07 Patient medically screened. 02/17 00:36 Differential diagnosis: CHF exacerbation, Chronic Obstructive Pulmonary Disease gs Myocardial Infarction pneumonia. Data reviewed: vital signs, nurses notes. Response to treatment: the patient's symptoms have markedly improved after treatment, and as a result, I will admit patient. 02/16 21:53 Order name: Basic Metabolic Panel 02/16 21:53 Order name: CBC with Diff 02/16 21:53 Order name: LFT's 02/16 21:53 Order name: Magnesium 02/16 21:53 Order name: NT PRO-BNP; Complete Time: 23:30 02/16 21:53 Order name: PT-INR; Complete Time: 23:30 02/16 21:53 Order name: Troponin (emerg Dept Use Only); Complete Time: 23:30 gs 02/16 21:53 Order name: XRAY Chest (1 view) 02/16 21:54 Order name: Basic Metabolic Panel; Complete Time: 23:30 EDMS 02/16 21:54 Order name: CBC with Automated Diff; Complete Time: 23:30 EDMS 02/16 21:54 Order name: Liver (Hepatic) Function; Complete Time: 23:30 EDMS 02/16 21:54 Order name: Magnesium; Complete Time: 23:30 EDMS 02/16 21:53 Order name: EKG; Complete Time: 21:54 02/16 21:53 Order name: Cardiac monitoring; Complete Time: 22:10 02/16 21:53 Order name: EKG - Nurse/Tech; Complete Time: 22:00 02/16 21:53 Order name: IV Saline Lock; Complete Time: 22:10 02/16 21:53 Order name: Labs collected and sent; Complete Time: 22:10 02/16 21:53 Order name: O2 Per Protocol; Complete Time: 22:10 02/16 21:53 Order name: O2 Sat Monitoring; Complete Time: 22:10 gs EC:36 Rate is 69 beats/min. Rhythm is regular. AK interval is normal. QRS interval is gs prolonged. T waves are Inverted. Clinical impression: NSR w/ Non-specific ST/T Changes and Abnormal EKG without significant change. Interpreted by me. Administered Medications: 02/16 22:14 Drug: Albuterol 2.5 mg Route: Inhalation; 1 22:14 Drug: AtroVENT Aerosol 0.5 mg Route: Inhalation; lp1 23:46 Drug: AtroVENT Aerosol 0.5 mg Route: Inhalation; lp1 23:46 Drug: Potassium Effervescent Tablet 50 mEq Route: PO; lp1 02/17 01:03 Follow up: Response: No adverse reaction lp1 02/16 23:46 Drug: Lasix 40 mg Route: IVP; Site: right forearm; lp1 02/17 01:03 Follow up: Response: No adverse reaction lp1 02/16 23:47 Drug: Albuterol 2.5 mg Route: Inhalation; lp1 02/17 01:07 Drug: predniSONE 40 mg Route: PO; lp1 01:42 Follow up: Response: No adverse reaction lp1 Disposition: 00:36 Critical Care:. Disposition: 02/17/18 00:47 Hospitalization ordered by Topher Yuen for Inpatient Admission. Preliminary diagnosis are Systolic (congestive) heart failure, Chronic obstructive pulmonary disease with (acute) exacerbation. - Bed requested for Telemetry/MedSurg (Inpatient). - Status is Inpatient Admission. lp1 - Condition is Stable. - Problem is an acute exacerbation. - Symptoms have improved. UTI on Admission? No Critical care time excluding procedures: 00:36 Critical care time: Bedside Care: 10 minutes, Consultation: 10 minutes, Family gs Intervention: 10 minutes. Total time: 30 minutes Signatures: Dispatcher [employer] EDMS Andreea Parks RN RN Alana Alfaro RN RN 1 Mimi Nunez RN RN Kavin Mcmullen MD MD gs Corrections: (The following items were deleted from the chart) 01:28 00:47 Hospitalization Ordered by Topher Yuen MD for Inpatient Admission. Preliminary cg diagnosis is Systolic (congestive) heart failure; Chronic obstructive pulmonary disease with (acute) exacerbation. Bed requested for Telemetry/MedSurg (Inpatient). Status is Inpatient Admission. Condition is Stable. Problem is an acute exacerbation. Symptoms have improved. UTI on Admission? No. gs 02:10 01:28 02/17/2018 00:47 Hospitalization Ordered by Topher Yuen MD for Inpatient lp1 Admission. Preliminary diagnosis is Systolic (congestive) heart failure; Chronic obstructive pulmonary disease with (acute) exacerbation. Bed requested for Telemetry/MedSurg (Inpatient). Status is Inpatient Admission. Condition is Stable. Problem is an acute exacerbation. Symptoms have improved. UTI on Admission? No. cg
[2018-02-17] MEDS ORDERED: predniSONE 20 MG TAB ONE (01:13)
[2018-02-17] MEDS ORDERED: ONDANSETRON 4 MG/2 ML VIAL IV PRN (01:32)
[2018-02-17] MEDS ORDERED: ALBUTEROL 2.5 MG/3 ML NEB SOL NEB PRN (01:32)
[2018-02-17] MEDS ORDERED: ACETAMINOPHEN 500 MG TAB PO PRN (01:32)
[2018-02-17] MEDS ORDERED: METOLAZONE 5 MG TABLET PO PRN (01:35)
[2018-02-17] MEDS ORDERED: FUROSEMIDE 40 MG/4 ML VIAL IV SCH ×2 (02:00→09:00)
[2018-02-17 05:41] LABS: Urine Appearance CLEAR; Urine Bilirubin NEGATIVE (NEG); Urine Blood NEGATIVE (NEG); Urine Color YELLOW; Urine Glucose NEGATIVE (NEG); Urine Protein NEGATIVE (NEG); Urine Urobilinogen 0.2 mg/dL (0.2-1.0); Urine pH 6.5 (5.0-7.0)
[2018-02-17 05:42] LABS: Urine Microscopic Reflex NO UMIC
[2018-02-17 05:49] LABS: Albumin 3.2 g/dL (3.4-5.0); Bilirubin Total 0.2 mg/dL (0.2-1.0); Phosphorus 2.8 mg/dL (2.5-4.9); Potassium 3.4 mmol/L (3.5-5.1); Protein, Total 7.1 g/dL (6.4-8.2)
[2018-02-17 05:50] LABS: Absolute Lymphocytes (CBC) 1.5 K/uL (0.7-4.9); Absolute Monocytes 0.3 K/uL (0.1-1.3); Absolute Neutrophil 6.4 K/uL (1.8-8.0); Basophils % 0.8 % (0-1.3); Eosinophils % 2.9 % (0-4.4); Hematocrit 33.8 % (39.6-49.0); Lymphocytes % 17.9 % (15.3-44.8); MCH 27.1 pg (27.0-35.0); MCV 80.6 fL (80-100); MPV 8.6 fL (7.6-11.3); RBC Red Blood Cell Count 4.19 M/uL (4.33-5.43)
[2018-02-17] MEDS ORDERED: POTASSIUM CL SA 10 MEQ TAB PO ONE (06:12)
[2018-02-17] MEDS ORDERED: PANTOPRAZOLE 40MG TABLET PO SCH (06:30)
--- NOTE | 2018-02-17 07:15 | RAD REPORT ---
EXAM DESCRIPTION: RAD - Chest Single View - 02/16/2018 10:44 pm CLINICAL HISTORY: Acute onset shortness of breath COMPARISON: January 22 TECHNIQUE: AP portable chest image was obtained 2236 hours . FINDINGS: No peripheral mass or consolidation. Lung markings are mildly prominent, not substantially different from baseline. No significant failure or volume overload. Sternotomy wires remain in place . Heart and vasculature are normal. No measurable pleural effusion and no pneumothorax. No acute bony abnormality seen. No acute aortic findings suspected. IMPRESSION: No new or progressive cardiopulmonary finding. Lung markings are mildly prominent, similar to prior imaging. A mild interstitial edema, infiltrate o r failure process would still be possible.
[2018-02-17] MEDS ORDERED: glipiZIDE 5 MG TAB PO SCH (07:30)
--- NOTE | 2018-02-17 07:42 | P.HP ---
Certification for Inpatient Patient admitted to: Inpatient With expected LOS: >2 Midnights Patient will require the following post-hospital care: None Practitioner: I am a practitioner with admitting privileges, knowledge of patient current condition, hospital course, and medical plan of care. Services: Services provided to patient in accordance with Admission requirements found in Title 42 Section 412.3 of the Code of Federal Regulations Patient History Date of Service: 02/17/18 Reason for admission: Shortness of breath History of Present Illness: Patient is a 67-year-old gentleman came into the hospital with shortness breath. Patient has had a history of recent diagnosis of coronary artery disease. Patient had diffuse LAD lesion with other lesions. Patient was transferred to [facility] for Coronary artery bypass grafting. This was in November. Patient had a 3 vessel coronary artery bypass graft at that time. Patient has done well but he has been to the ER on 1 prior occasion with chest pain. Otherwise patient denies any other complaints. His shortness of breath may be related to his CHF or his COPD. Patient has an ejection fraction of less than 30%. Patient is on medication for congestive heart failure, systolic dysfunction. It appears patient had a mild exacerbation of his CHF. After diuresing him he is feeling much better. Patient will get repeat workup at this time. Will go ahead and admit him to the hospital for further workup. Allergies No Known Allergies Allergy (Verified 02/17/18 03:00) Home Medications: Clopidogrel Bisulfate [Plavix*] 75 mg PO DAILY #30 tablet 02/24/16 Furosemide [Lasix*] 80 mg PO DAILY #30 tab 02/24/16 Lisinopril [Prinivil*] 40 mg PO DAILY #30 tab 02/24/16 Gabapentin [Neurontin*] 1,200 mg PO TID 12/02/16 metOLazone [Metolazone] 5 mg PO DAILY PRN 30 Days #30 tablet 05/04/17 Aspirin 81 mg PO DAILY 11/10/17 Carvedilol [Coreg*] 12.5 mg PO BID 11/10/17 Glipizide [Glucotrol] 10 mg PO BID 11/10/17 Nifedipine [Nifedipine ER] 60 mg PO DAILY 11/10/17 Trazodone HCl 100 mg PO BEDTIME PRN 11/10/17 Metformin ER [Glucophage ER*] 1,000 mg PO BID 02/17/18 - Past Medical/Surgical History Has patient received pneumonia vaccine in the past: Yes Diabetic: Yes -: Hypertension -: Diabetes mellitus type 2 -: Posttraumatic stress disorder -: Anxiety -: Hepatitis-C -: Hyperlipidemia -: CAD, stent placement x2 -: Obstructive sleep apnea -: Obesity -: Diabetic neuropathy -: History pancreatitis -: COPD, tobacco abuse -: 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 - Family History Father Medical History: Other (see notes) Notes: CHF Mother Medical History: Cancer Notes: breast cancer Sister Medical History: Cancer Notes: colon cancer Brother Medical History: Cancer Notes: throat cancer - Social History Smoking Status: Never smoker Alcohol use: No CD- Drugs: No Caffeine use: Yes Place of Residence: Home Review of Systems 10-point ROS is otherwise unremarkable Physical Examination - Vital Signs Temperature: 97.6 F Blood Pressure: 148/67 Pulse: 75 Respirations: 18 Pulse Ox (%): 95 - Physical Exam General: Alert, In no apparent distress, Moderate distress HEENT: Atraumatic, PERRLA, Mucous membr. moist/pink, EOMI, Sclerae nonicteric Neck: Supple, 2+ carotid pulse no bruit, No LAD, Without JVD or thyroid abnormality Respiratory: Diminished, Crackles/rales, Expiratory wheezes Cardiovascular: Regular rate/rhythm, Normal S1 S2, Systolic murmur Gastrointestinal: Normal bowel sounds, Soft and benign, Non-distended, No tenderness Musculoskeletal: No clubbing, No tenderness, Swelling Integumentary: No rashes, No breakdown Neurological: Normal gait, Normal speech, Normal strength at 5/5 x4 extr, Normal tone, Sensation intact, Cranial nerves 3-12 intact, Normal affect Lymphatics: No axilla or inguinal lymphadenopathy - Studies Laboratory Data (last 24 hrs) 02/16/18 21:55: PT 12.5, INR 1.06 02/16/18 21:55: WBC 9.7, Hgb 11.2 L, Hct 33.6 L, Plt Count 270 02/16/18 21:55: Sodium 139, Potassium 3.1 L, BUN 28 H, Creatinine 1.20, Glucose 179 H, Magnesium 1.9, Total Bilirubin 0.2, AST 11 L, ALT 14, Alkaline Phosphatase 95 Assessment & Plan - Problems (Diagnosis) (1) Acute systolic CHF (congestive heart failure) Current Visit: Yes Status: Acute (2) Acute exacerbation of chronic obstructive airways disease Current Visit: No Status: Acute (3) CHF (congestive heart failure) Current Visit: No Status: Acute Qualifiers: Qualified Code(s): I50.33 - Acute on chronic diastolic (congestive) heart failure (4) Nicotine dependence Onset Date: 12/03/16 Current Visit: No Status: Chronic Qualifiers: Nicotine product type: cigarettes Substance use status: uncomplicated Qualified Code(s): F17.210 - Nicotine dependence, cigarettes, uncomplicated (5) Obstructive sleep apnea Onset Date: 11/11/17 Current Visit: No Status: Chronic (6) Tobacco abuse Current Visit: No Status: Chronic (7) Type 2 diabetes mellitus without complications Onset Date: 05/07/17 Current Visit: No Status: Chronic Qualifiers: Diabetes mellitus retirement insulin use: without buttermaker use Qualified Code(s): E11.9 - Type 2 diabetes mellitus without complications - Plan 1. Echocardiogram showed systolic dysfunction with any ejection fraction less than 30% a couple of months ago 2. Continue carvedilol & Continue with additional cardiac medications 3. Strict blood pressure and blood sugar control 4. Cardiology consultation 5. Aggressive diuresis 6. Strict I's and O's 7. Repeat CXR 8. Daily weights 9. Monitor renal function and nebs as needed 10. Education regarding diet and treatment of congestive heart failure Discharge Plan: Home Plan to discharge in: 48 Hours - Advance Directives Does patient have a Living Will: No Does patient have a Durable POA for Healthcare: No - Code Status/Comfort Care Code Status Assessed: Yes Code Status: Full Code Critical Care: No Time Spent Managing PTS Care (In Minutes): 60
[2018-02-17] MEDS ORDERED: ASPIRIN 81 MG CHEWABLE TABLET PO SCH (09:00)
[2018-02-17] MEDS ORDERED: GABAPENTIN 400 MG CAP PO SCH (09:00)
[2018-02-17] MEDS ORDERED: METOPROLOL TAR 50 MG TAB PO SCH (09:00)
[2018-02-17] MEDS ORDERED: ASPIRIN EC 81 MG TAB PO SCH (09:00)
[2018-02-17] MEDS ORDERED: FUROSEMIDE 40 MG TABLET PO SCH (09:00)
[2018-02-17] MEDS ORDERED: ENOXAPARIN 40 MG/0.4 ML SQ SCH (09:00)
[2018-02-17] MEDS ORDERED: CLOPIDOGREL 75 MG TABLET PO SCH (09:00)
[2018-02-17] MEDS ORDERED: LISINOPRIL 20 MG TAB PO SCH (09:00)
--- NOTE | 2018-02-17 10:04 | EKG ---
Test Date: 2018-02-16 Test Time: 21:49:31 Aml Analyst: ARNOLD MEASUREMENT RESULTS: Intervals: Rate: 69 AK: 198 QRSD: 110 QT: 406 QTc: 435 Mission: P: 82 AK: 198 QRS: -46 T: 140 INTERPRETIVE STATEMENTS: Normal sinus rhythm Left axis deviation Cannot rule out Anterior infarct, age undetermined ST & T wave abnormality, consider lateral ischemia Abnormal ECG Compared to ECG 01/22/2018 12:05:05 Myocardial infarct finding now present Sinus tachycardia no longer present Electronically Signed On 02-17-18 10:03:30 CDT by Efrain Cintron
--- NOTE | 2018-02-17 14:00 | CON ---
History And Physical: Mr. Hsu came to our hospital because of dyspnea, with breathing treatments , he is breathing much better. He has also had some diuresis. Mr. Hsu has coronary heart diseas e. 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 He did well following that. This is his first hospital admission since then. Mr. Hsu continues to smoke. He does not follow a low-sodium diet. He is good about taking his medications. He believ es the breathing treatments he has had have helped the most. He gets nebulizer treatments with albut davonte. Past Medical History: He has underlying past medical history of obstructive lung disease, diabetes, obesity, coronary heart disease, hypertension, dyslipidemia. Medications: Outpatient medications have been Plavix, furosemide, lisinopril, gabapentin, glipizide, trazodone, nifedipine, aspirin, carvedilol, metformin. I feel sure that he is actually taking Lipit or, although it is not on his list of medicines he was admitted with. I believe he is taking Lipitor . Physical Examination: General: He is 6 feet tall, 272 pounds, alert, oriented, pleasant, not in distress. Lungs: Do not reveal crackles or wheeze. Normal breath sounds. Heart: Regular rate and rhythm. I do not appreciate a significant murmur or gallop. Chest x-ray reveals mild interstitial edema in comparison to an old film, that may be in largely cobos er of different technique or less inspiration or there actually may be some more edema in his lungs. I would recommend he follow a low-sodium diet, quit smoking, and we will do an echocardiogram today. If that does not show any new abnormalities, he can probably be discharged with again the plan of having him try to quit smoking an d use less sodium in his diet. CAPRICE/PARTH Voice ID: [id number] Report ID: [id number]
[2018-02-17] MEDS ORDERED: TRAZODONE 50 MG TABLET PO PRN (21:00)
[2018-02-17] MEDS ORDERED: CARVEDILOL 25 MG TAB PO SCH (21:00)
[2018-02-18] MEDS ORDERED: IRBESARTAN 150 MG TAB PO SCH (09:00)
[2018-02-18 14:18] VITALS: BP 148/67; TEMP 97.6; O2SAT 97; BMI 36.8
== END 2018-02-17 11:02 | disposition home or self-care (01) ==
LOC: ER 21:41 → ERHOLD 02-17 00:57 → INTOOBSV 02-17 00:57 → 2ND 02-17 02:00
PROVIDERS: ADMIT Hospitalist; ATTEND Hospitalist
DX: I11.0 Hypertensive heart disease with heart failure (principal); I50.23 Acute on chronic systolic (congestive) heart failure; J44.1 Chronic obstructive pulmonary disease with (acute) exacerbation; I25.10 Atherosclerotic heart disease of native coronary artery without angina pectoris; G47.33 Obstructive sleep apnea (adult) (pediatric); E11.9 Type 2 diabetes mellitus without complications; Z95.1 Presence of aortocoronary bypass graft; F17.210 Nicotine dependence, cigarettes, uncomplicated; E78.5 Hyperlipidemia, unspecified
CPT/HCPCS: 36415; 71045; 80048; 80053; 80076; 81003; 82962 ×3; 83735 ×2; 83880 ×2; 84100; 84484; 85025 ×2; 85610; 93005; 94640; 96374; 99285; J1650; J7512

== ENCOUNTER 2020-08-11 03:26 | Inpatient (IN) | payer OTHER ==
--- OUTSIDE RECORDS SUMMARY | 2020-08-11 03:30 | XMS REPORT | Continuity of Care Document ---
:1950 Author Organization [facility] t Address [address] [place] [address] Care Team Providers Name Role Phone Eloisa LYMAN Attending Clinician Unavailable JUAN FRANCISCO SÁNCHEZ Attending Clinician Unavailable Eloisa LYMAN Admitting Clinician Unavailable JUAN FRANCISCO SÁNCHEZ Admitting Clinician Unavailable Problems Condition Condition Condition Status Onset Resolution Last Treating Co mments Source Name Details Category Date Date Treatment Clinician Date Acute Acute Disease Active [facility] hypox[facility] hypoxemic -19 [facility] - respirator respirator 00:00: Me dical y failure y failure 00 Cent er Acute Acute Disease Active [facility] respirator respirator 9-19 Katerine kes - y failure y failure 00:00: Medi oralia 00 Center S/P CABG S/P CABG Disease [facility] (coron[facility] (coronary 11-19 [facility] - artery artery 00:00: Medical bypass bypass 00 Center graft) graft) NSTEMI NSTEMI Disease Active [facility] (non-ST (non-ST -17 [facility] - elevated elevated 00:00: Medica l myocardial myocardial 00 Ce nter infarction infarction ) ) Essential Essential Disease Active [facility] hypertensi hypertensi 7-17 Katerine kes - on on 00:00: Medical 00 Center Acute on Acute on Disease Active [facility] chronic chronic -17 [facility] - diastolic diastolic 00:00: Medi oralia (congestiv (congestiv 00 Ce nter e) heart e) heart failure failure Acute Acute Disease Active [facility] respirator respirator 7-12 Katerine kes - y y 00:00: Medical insufficie insufficie 00 Ce nter ncy ncy Other Other Disease Active [facility] shock shock 11-14 Lu - 00:00: Medical 00 Center CAD CAD Disease Active [facility] (coronary (coronary 11-11 [place] - artery artery 00:00: Medical disease) disease) 00 Center CKD CKD Disease Active Overview: [facility] (chronic (chronic 05-06 Baseline [facility] - kidney kidney 00:00: Creatinin Medical disease) disease) 00 e ~ 1-1.[address] stage 2, stage 2, GFR 60-89 GFR 60-89 ml/min ml/min Coronary Coronary Disease Active Overview: [facility] artery artery 05-06 PCI 2013, [facility] - disease disease 00:00: 2016- on Medica l 00 plavix / Center ACB x 3: IBRAHIM-> LAD, SVG-> OM1, SVG-> OM2 Diabetes Diabetes Disease Active Overview: [facility] mellitus mellitus 05-06 oral meds [facility] - 00:00: including Medical 00 metformin Center Hypertensi Hypertensi Disease Active [facility] on on 05-06 kes - 00:00: Medical 00 [place] NORRIS on NORRIS on Disease Active Overview: [facility] CPAP CPAP claims [facility] e with Center CPAP Current Current Disease Active [facility] smoker smoker [facility] Allergies, Adverse Reactions, Alerts This patient has no known allergies or adverse reactions. Social History Social Habit Start Date Stop Date Quantity Comments Source Sex Assigned At [facility] Cigarettes smoked 2018-01-22 2018-01-22 [facility] - current (pack per 00:00:00 00:00:00 [facility] Center day) - Reported Cigarette 2018-01-22 2018-01-22 [facility] - pack-years 00:00:00 00:00:00 [facility] Tobacco use and 2018-01-22 2018-01-22 Never used [facility] - exposure 00:00:00 00:00:00 [facility] Alcohol intake 2018-01-22 2018-01-22 Current [facility] es - 00:00:00 00:00:00 non-drinker of Medical Ce nter alcohol (finding) Smoking Status Start Date Stop Date Source Current every day smoker 2018-01-22 00:00:00 [facility] Medications Ordered Filled Start Stop Current Ordering Indication Dosage Frequency Signature Comments Components Source Medication Medication Date Date Medication? Clinician (SIG) Name Name carvedilol 2018-0 Yes 12.5mg Take 12.[address] [facility] (COREG) 25 9-20 mg by [facility] - MG tablet 10:15: mouth 2 Medic al 53 (two) Center times daily with breakfast and dinner . clopidogrel 2018-0 Yes 75mg QD Take [address] [facility] (PLAVIX) 75 9-20 by mouth Luke s - mg tablet 10:15: daily. Medica l 53 Center aspirin 81 2018-0 Yes 81mg QD Take [address] MG EC 9-20 by mouth [facility] - tablet 10:15: daily. Medical 53 Center esomeprazol 2017-0 Yes 20mg QD Take [address] [facility] e (NEXIUM) 9-20 by mouth [facility]ukes - 20 MG 10:15: daily. Medical capsule 53 Center gabapentin 0 Yes 1200mg [id number] Take 1,[address] (NEURONTIN) 9-20 [id number] mg by L ukes - 600 MG 10:15: 3D mouth 3 Medical tablet 53 (three) Center times daily. glipiZIDE 2018-0 Yes 10mg Q.5D Take [address] (GLUCOTROL 9-20 by mouth 2 Holly es - XL) 10 MG 10:15: (two) Medical 24 hr 53 times Center tablet daily. metFORMIN 2018-0 Yes 1000mg Q.5D Take 1,[address] (GLUMETZA) 9-20 mg by [facility]ukes - 1000 MG 10:15: mouth 2 Medical (MOD) 24 hr 53 (two) Center tablet times daily. traZODone 2017-0 Yes 100mg Take [address] [facility] (DESYREL) 9-20 mg by [facility] - 100 MG 10:15: mouth Medical tablet 53 every Center night as needed for Sleep. metOLazone 2018-0 Yes 5mg QD Take [address] (ZAROXOLYN) 9-20 by mouth Luke s - 5 MG tablet 10:15: daily. Medi oralia 53 Center furosemide 2017-0 Yes Resume [facility] (LASIX) 80 7-17 taking as Luke s - MG tablet 00:00: you were Medi oralia 00 prior to Center admission. polyethylen 2018-0 Yes Use daily [facility] e glycol 7-17 per [facility]ukes - (GLYCOLAX) 00:00: package Medi oralia 17 gram 00 instructio Center packet ns. Is over the counter. Procedures This patient has no known procedures. Plan of Care Planned Activity Planned Date Details Comments Source Future Scheduled 2020-01-05 INFLUENZA VACCINE (#1) [facility] - Test 00:00:00 [code = INFLUENZA Medical Ce nter VACCINE (#1)] Future Scheduled 2018-07-[address] Katerine kes - Test 00:00:00 measurement Medical Center (procedure) [code = 45942910] Future Scheduled 2014-11-[address] [facility] - Test 00:00:00 WELLNESS (YEAR 2 or Medical Center FIRST YEAR if no IPPE) [code = MEDICARE ANNUAL WELLNESS (YEAR 2 or FIRST YEAR if no IPPE)] Future Scheduled 2013 PNEUMOCOCCAL 65+ YRS [facility] - Test 00:00:00 (1 of 1 - Medical Center [id number] PCV13) [code = PNEUMOCOCCAL 65+ YRS (1 of 1 - [id number] PCV13)] Future Scheduled 1958 DIABETIC EYE EXAM [facility] - Test 00:00:00 [code = DIABETIC EYE Medical Center EXAM] Future Scheduled [address] Holly es - Test 00:00:00 examination Medical Center (regime/therapy) [code = 209946804] Future Scheduled 1958 Urine screening for [facility] - Test 00:00:00 protein (procedure) Medical Center [code = 678315286] Future Scheduled [address] [facility] es - Test 00:00:00 malignant neoplasm of Medica [facility] colon (procedure) [code = 107030501] Results Test Description Test Time Test Comments Results Result Comments Source HEMOGLOBIN A1C 2018-01-23 09:40:00 Test Item Value Reference Range Interpretation Comme nts HEMOGLOBIN A1C (BEAKER) (test code = 368) 6.1 % 4.3-6.1 RAD, CHEST, 1 VIEW, NON [id number] 09:36:00Reason for exam:->sobShould this be performed at the bedside?->YesFINAL REPORT Chest one view compared to January 22 Discussion: There is cardiac prominence and interstitial congestion. There is linear opacity in both lower lungs. No effusionor pneumothorax. Signed: Denice Traneport Verified Date/Time: 01/23/2018 09:36:57 Reading Location: [facility] Reading Room POCT-GLUCOSE [id number] 08:04:00 Test Item Value Reference Range Interpretation Comments POC-GLUCOSE METER 176 mg/dL 70-110 H TESTED AT [facility] [address] (BEAKER) (test code = [address] [facility] 1538) [id number] 06:49:00 Test Item Value Reference Range Interpretation Comments MAGNESIUM (BEAKER) 2.1 mg/dL 1.6-2.6 Specimen slightly (test code = 627) hemolyzed BASIC METABOLIC [id number] 06:49:00 Test Item Value Reference Range Interpretation Comments SODIUM (BEAKER) 139 meq/L 136-145 (test code = 381) POTASSIUM (BEAKER) 4.4 meq/L 3.5-5.1 Specimen slightly (test code = 379) hemolyzed CHLORIDE (BEAKER) 106 meq/L 98-107 (test code = 382) CO2 (BEAKER) (test 24 meq/L 22-29 code = 355) BLOOD UREA NITROGEN 22 mg/dL 7-21 H (BEAKER) (test code = 354) CREATININE (BEAKER) 1.09 mg/dL 0.57-1.25 Specimen slightly (test code = 358) hemolyzed GLUCOSE RANDOM 149 mg/dL 70-105 H (BEAKER) (test code = 652) CALCIUM (BEAKER) 9.6 mg/dL 8.4-10.2 (test code = 697) EGFR (BEAKER) (test 67 mL/min/1.73 ESTIMA TOR GFR IS code = 1092) sq m NOT ACCURATE CREATININE CLEARANCE IN PREDICTING GLOMERULAR FILTRATION RATE . ESTIMATED GFR I S NOT APPLICABLE FOR DIALYSIS PATIEN TS. CBC W/PLT COUNT & AUTO [id number] 06:30:00 Test Item Value Reference Range Interpretation Comments WHITE BLOOD CELL COUNT (BEAKER) 12.0 K/ L 3.5-10.5 H (test code = 775) RED BLOOD CELL COUNT (BEAKER) 3.98 M/ L 4.63-6.08 L (test code = 761) HEMOGLOBIN (BEAKER) (test code = 10.7 GM/DL 13.7-17.5 L 410) HEMATOCRIT (BEAKER) (test code = 34.5 % 40.1-51.0 L 411) MEAN CORPUSCULAR VOLUME (BEAKER) 86.7 fL 79.0-92.2 (test code = 753) MEAN CORPUSCULAR HEMOGLOBIN 26.9 pg 25.7-32.2 (BEAKER) (test code = 751) MEAN CORPUSCULAR HEMOGLOBIN CONC 31.0 GM/DL 32.3-36.5 L (BEAKER) (test code = 752) RED CELL DISTRIBUTION WIDTH 14.6 % 11.6-14.4 H (BEAKER) (test code = 412) PLATELET COUNT (BEAKER) (test 259 K/CU MM 150-450 code = 756) MEAN PLATELET VOLUME (BEAKER) 10.7 fL 9.4-12.4 (test code = 754) NUCLEATED RED BLOOD CELLS 0 /100 WBC 0-0 (BEAKER) (test code = 413) NEUTROPHILS RELATIVE PERCENT 87 % (BEAKER) (test code = 429) LYMPHOCYTES RELATIVE PERCENT 8 % (BEAKER) (test code = 430) MONOCYTES RELATIVE PERCENT 5 % (BEAKER) (test code = 431) EOSINOPHILS RELATIVE PERCENT 0 % (BEAKER) (test code = 432) BASOPHILS RELATIVE PERCENT 0 % (BEAKER) (test code = 437) NEUTROPHILS ABSOLUTE COUNT 10.39 K/ L 1.78-5.38 H (BEAKER) (test code = 670) LYMPHOCYTES ABSOLUTE COUNT 0.93 K/ L 1.32-3.57 L (BEAKER) (test code = 414) MONOCYTES ABSOLUTE COUNT (BEAKER) 0.56 K/ L 0.30-0.82 (test code = 415) EOSINOPHILS ABSOLUTE COUNT 0.00 K/ L 0.04-0.54 L (BEAKER) (test code = 416) BASOPHILS ABSOLUTE COUNT (BEAKER) 0.03 K/ L 0.01-0.08 (test code = 417) IMMATURE GRANULOCYTES-RELATIVE 1 % 0-1 PERCENT (BEAKER) (test code = 2801) POCT-GLUCOSE [id number] 22:19:00 Test Item Value Reference Range Interpretation Comments POC-GLUCOSE METER 235 mg/dL 70-110 H TESTED AT [facility] [address] ([facility]) (test code = [place] 1538) [id number] TROPONIN [id number] 17:45:00 Test Item Value Reference Range Interpretation Comments TROPONIN I (BEAKER) (test code = 0.53 ng/mL 0.00-0.03 397) Troponin I (TnI) levels must be interpreted in the context of the presenting symptoms and the clinical findings. Elevated TnI levels indicate myocardial damage, but are not specific for ischemic heart disease. Elevated TnI levels are seen in patients with other cardiac conditions (including myocarditis and congestive heart failure), and slight TnI elevations occur in patients with other conditions, including sepsis, renal failure, acidosis, acute neurological disease, and persistent tachyarrhythmia.B-TYPE NATRIURETIC FACTOR (BNP) 2018-01-22 17:38:00 Test Item Value Reference Range Interpretation Comments B-TYPE NATRIURETIC PEPTIDE 1407 pg/mL 0-100 H (BEAKER) (test code = 700) [id number] 17:35:00 Test Item Value Reference Range Interpretation Comments MAGNESIUM (BEAKER) (test code = 1.9 mg/dL 1.6-2.6 627) COMPREHENSIVE METABOLIC [id number] 17:35:00 Test Item Value Reference Range Interpretation Comments TOTAL PROTEIN 7.3 gm/dL 6.0-8.3 (BEAKER) (test code = 770) ALBUMIN (BEAKER) 4.0 g/dL 3.5-5.0 (test code = 1145) ALKALINE PHOSPHATASE 93 U/L 40-150 (BEAKER) (test code = 346) BILIRUBIN TOTAL 0.4 mg/dL 0.2-1.2 (BEAKER) (test code = 377) SODIUM (BEAKER) (test 141 meq/L 136-145 code = 381) POTASSIUM (BEAKER) 4.2 meq/L 3.5-5.1 (test code = 379) CHLORIDE (BEAKER) 104 meq/L 98-107 (test code = 382) CO2 (BEAKER) (test 28 meq/L 22-29 code = 355) BLOOD UREA NITROGEN 19 mg/dL 7-21 (BEAKER) (test code = 354) CREATININE (BEAKER) 1.14 mg/dL 0.57-1.25 (test code = 358) GLUCOSE RANDOM 135 mg/dL 70-105 H (BEAKER) (test code = 652) CALCIUM (BEAKER) 9.7 mg/dL 8.4-10.2 (test code = 697) AST (SGOT) (BEAKER) 20 U/L 5-34 (test code = 353) ALT (SGPT) (BEAKER) 18 U/L 6-55 (test code = 347) EGFR (BEAKER) (test 64 mL/min/1.73 ESTIMA TOR GFR IS code = 1092) sq m NOT ACCURATE CREATININE CLEARANCE IN PREDICTING GLOMERULAR FILTRATION RATE . ESTIMATED GFR I S NOT APPLICABLE FOR DIALYSIS PATIEN TS. LIPID [id number] 17:35:00 Test Item Value Reference Range Interpretation Comments TRIGLYCERIDES (BEAKER) (test code = 91 mg/dL 540) CHOLESTEROL (BEAKER) (test code = 127 mg/dL 631) HDL CHOLESTEROL (BEAKER) (test code 26 mg/dL = 976) LDL CHOLESTEROL CALCULATED (Aspects SoftwareAKER) 83 mg/dL (test code = 633) Triglyceride Reference Range: Low Risk <150 Borderline 150-199 High Risk 200-499 Very High Risk >=500Cholesterol Reference Range: Low Risk <200 Borderline 200-239 High Risk >240HDL Cholesterol Reference Range: Low Risk >=60 High Risk <40LDL Cholesterol Reference Range: Optimal <100 Near Optimal 100-129 Borderline 130-159 High 160-189 Very High >=190LACTIC ACID, VENOUS, WHOLE [id number] 17:29:00 Test Item Value Reference Range Interpretation Comments LACTATE BLOOD VENOUS 1.0 mmol/L 0.5-2.2 Specime n slightly (2) (BEAKER) (test hemolyzed code = 5882) Effective 09/07/2015: Units/Reference Range ChangeNew: 0.5-2.2 mmol/L Previous: 5-20 mg/[id number] 17:29:00 Test Item Value Reference Range Interpretation Comments PARTIAL THROMBOPLASTIN TIME 46.7 seconds 22.5-36.0 H (BEAKER) (test code = 760) PROTHROMBIN [id number] 17:28:00 Test Item Value Reference Range Interpretation Comments PROTIME (BEAKER) (test code = 14.9 seconds 11.7-14.7 H 759) INR (BEAKER) (test code = 370) 1.2 <=5.9 RECOMMENDED COUMADIN/WARFARIN INR THERAPY RANGESSTANDARD DOSE: 2.0 - 3.0 Includes: PROPHYLAXIS forvenous thrombosis, systemic embolization; TREATMENT for venous thrombosis and/or pulmonary embolus.HIGH RISK: Target INR is 2.5-3.5 for patients with mechanical heart valves.CBC W/PLT COUNT & AUTO DIFFERENTIAL 2018-01-22 17:24:00 Test Item Value Reference Range Interpretation Comments WHITE BLOOD CELL COUNT (BEAKER) 14.1 K/ L 3.5-10.5 H (test code = 775) RED BLOOD CELL COUNT (BEAKER) 3.92 M/ L 4.63-6.08 L (test code = 761) HEMOGLOBIN (BEAKER) (test code = 10.6 GM/DL 13.7-17.5 L 410) HEMATOCRIT (BEAKER) (test code = 34.3 % 40.1-51.0 L 411) MEAN CORPUSCULAR VOLUME (BEAKER) 87.5 fL 79.0-92.2 (test code = 753) MEAN CORPUSCULAR HEMOGLOBIN 27.0 pg 25.7-32.2 (BEAKER) (test code = 751) MEAN CORPUSCULAR HEMOGLOBIN CONC 30.9 GM/DL 32.3-36.5 L (BEAKER) (test code = 752) RED CELL DISTRIBUTION WIDTH 14.7 % 11.6-14.4 H (BEAKER) (test code = 412) PLATELET COUNT (BEAKER) (test 242 K/CU MM 150-450 code = 756) MEAN PLATELET VOLUME (BEAKER) 10.4 fL 9.4-12.4 (test code = 754) NUCLEATED RED BLOOD CELLS 0 /100 WBC 0-0 (BEAKER) (test code = 413) NEUTROPHILS RELATIVE PERCENT 83 % (BEAKER) (test code = 429) LYMPHOCYTES RELATIVE PERCENT 7 % (BEAKER) (test code = 430) MONOCYTES RELATIVE PERCENT 9 % (BEAKER) (test code = 431) EOSINOPHILS RELATIVE PERCENT 0 % (BEAKER) (test code = 432) BASOPHILS RELATIVE PERCENT 0 % (BEAKER) (test code = 437) NEUTROPHILS ABSOLUTE COUNT 11.74 K/ L 1.78-5.38 H (BEAKER) (test code = 670) LYMPHOCYTES ABSOLUTE COUNT 0.92 K/ L 1.32-3.57 L (BEAKER) (test code = 414) MONOCYTES ABSOLUTE COUNT (BEAKER) 1.28 K/ L 0.30-0.82 H (test code = 415) EOSINOPHILS ABSOLUTE COUNT 0.01 K/ L 0.04-0.54 L (BEAKER) (test code = 416) BASOPHILS ABSOLUTE COUNT (BEAKER) 0.04 K/ L 0.01-0.08 (test code = 417) IMMATURE GRANULOCYTES-RELATIVE 1 % 0-1 PERCENT (BEAKER) (test code = 2801) RAD, CHEST, 1 VIEW, NON [id number] 17:16:00Reason for exam:->sp acute respiratory failure/bronchospasmShould this be performed at the bedside?->Yes FINAL REPORT EXAM: Frontal chest radiograph HISTORY PROVIDED: Status post acute respiratory failure, bronchospasm COMPARISON: 11/18/2017 IMPRESSION:There is pulmonary vascular congestion and bilateral interstitial opacities suggesting mild interstitial edema. No focal consolidatio n. No pneumothorax or significant pleural fluid. Linear opacities within the left lung base likely represent scarring. Median sternotomy wires appear intact. The cardiac silhouette remains enlarged. Noacute osseous abnormality. Signed: Clayton Banegas Verified Date/Time: 01/22/2018 17:16:12 Reading Location: [facility] Reading Room POCT-GLUCOSE [id number] 17:12:00 Test Item Value Reference Range Interpretation Comments POC-GLUCOSE METER 118 mg/dL 70-110 H TESTED AT [facility] 6720 (BEAKER) (test code = [place] 1538) [id number] BLOOD GAS, [id number] 16:35:00 Test Item Value Reference Range Interpretation Comments PH ARTERIAL (BEAKER) (test code = 7.31 7.35-7.45 L 383) PCO2 ARTERIAL (BEAKER) (test code 62 mmHg 35-45 H = 384) PO2 ARTERIAL (BEAKER) (test code = 68 mmHg 80-90 L 385) O2 SATURATION ARTERIAL (BEAKER) 91.3 % 96.0-97.0 L (test code = 386) HCO3 ARTERIAL (BEAKER) (test code 31 mmol/L 21-29 H = 388) BASE EXCESS ARTERIAL (BEAKER) 3.1 mmol/L -2.0-3.0 H (test code = 387) PATIENT TEMPERATURE (BEAKER) (test 37.0 C code = 1818) FIO2 (BEAKER) (test code = 1819) 32.0 % POCT-GLUCOSE [id number] 14:15:00 Test Item Value Reference Range Interpretation Comments POC-GLUCOSE METER 69 mg/dL 70-110 L Will Repea t Test/TESTED (BEAKER) (test code = AT [facility] [address] [facility] 1538) [facility] [address] 0 POCT-GLUCOSE [id number] 08:43:00 Test Item Value Reference Range Interpretation Comments POC-GLUCOSE METER 277 mg/dL 70-110 H TESTED AT [facility] 6720 (BEAKER) (test code = [facility] 1538) [id number] 06:20:00 Test Item Value Reference Range Interpretation Comments PHOSPHORUS (BEAKER) (test code = 3.3 mg/dL 2.3-4.7 604) [id number] 06:20:00 Test Item Value Reference Range Interpretation Comments MAGNESIUM (BEAKER) (test code = 1.8 mg/dL 1.6-2.6 627) BASIC METABOLIC [id number] 06:20:00 Test Item Value Reference Range Interpretation Comments SODIUM (BEAKER) 137 meq/L 136-145 (test code = 381) POTASSIUM (BEAKER) 4.0 meq/L 3.5-5.1 (test code = 379) CHLORIDE (BEAKER) 102 meq/L 98-107 (test code = 382) CO2 (BEAKER) (test 25 meq/L 22-29 code = 355) BLOOD UREA NITROGEN 16 mg/dL 7-21 (BEAKER) (test code = 354) CREATININE (BEAKER) 1.16 mg/dL 0.57-1.25 (test code = 358) GLUCOSE RANDOM 114 mg/dL 70-105 H (BEAKER) (test code = 652) CALCIUM (BEAKER) 9.6 mg/dL 8.4-10.2 (test code = 697) EGFR (BEAKER) (test 63 mL/min/1.73 ESTIMA TOR GFR IS code = 1092) sq m NOT ACCURATE CREATININE CLEARANCE IN PREDICTING GLOMERULAR FILTRATION RATE . ESTIMATED GFR I S NOT APPLICABLE FOR DIALYSIS PATIEN TS. CBC W/PLT COUNT & AUTO [id number] 06:09:00 Test Item Value Reference Range Interpretation Comments WHITE BLOOD CELL COUNT (BEAKER) 8.2 K/ L 3.5-10.5 (test code = 775) RED BLOOD CELL COUNT (BEAKER) 2.75 M/ L 4.63-6.08 L (test code = 761) HEMOGLOBIN (BEAKER) (test code = 8.0 GM/DL 13.7-17.5 L 410) HEMATOCRIT (BEAKER) (test code = 25.6 % 40.1-51.0 L 411) MEAN CORPUSCULAR VOLUME (BEAKER) 93.1 fL 79.0-92.2 H (test code = 753) MEAN CORPUSCULAR HEMOGLOBIN 29.1 pg 25.7-32.2 (BEAKER) (test code = 751) MEAN CORPUSCULAR HEMOGLOBIN CONC 31.3 GM/DL 32.3-36.5 L (BEAKER) (test code = 752) RED CELL DISTRIBUTION WIDTH 14.0 % 11.6-14.4 (BEAKER) (test code = 412) PLATELET COUNT (BEAKER) (test 209 K/CU MM 150-450 code = 756) MEAN PLATELET VOLUME (BEAKER) 10.7 fL 9.4-12.4 (test code = 754) NUCLEATED RED BLOOD CELLS 0 /100 WBC 0-0 (BEAKER) (test code = 413) NEUTROPHILS RELATIVE PERCENT 55 % (BEAKER) (test code = 429) LYMPHOCYTES RELATIVE PERCENT 26 % (BEAKER) (test code = 430) MONOCYTES RELATIVE PERCENT 11 % (BEAKER) (test code = 431) EOSINOPHILS RELATIVE PERCENT 6 % (BEAKER) (test code = 432) BASOPHILS RELATIVE PERCENT 1 % (BEAKER) (test code = 437) NEUTROPHILS ABSOLUTE COUNT 4.56 K/ L 1.78-5.38 (BEAKER) (test code = 670) LYMPHOCYTES ABSOLUTE COUNT 2.14 K/ L 1.32-3.57 (BEAKER) (test code = 414) MONOCYTES ABSOLUTE COUNT (BEAKER) 0.90 K/ L 0.30-0.82 H (test code = 415) EOSINOPHILS ABSOLUTE COUNT 0.49 K/ L 0.04-0.54 (BEAKER) (test code = 416) BASOPHILS ABSOLUTE COUNT (BEAKER) 0.09 K/ L 0.01-0.08 H (test code = 417) IMMATURE GRANULOCYTES-RELATIVE 0 % 0-1 PERCENT (BEAKER) (test code = 2801) POCT-GLUCOSE [id number] 22:48:00 Test Item Value Reference Range Interpretation Comments POC-GLUCOSE METER 196 mg/dL 70-110 H TESTED AT [facility] 6720 (BEAKER) (test code = [address] [place] 1538) [id number] POCT-GLUCOSE [id number] 17:21:00 Test Item Value Reference Range Interpretation Comments POC-GLUCOSE METER 122 mg/dL 70-110 H TESTED AT [facility] 6720 (BEAKER) (test code = [address] [place] 1538) [id number] 13:13:00 Test Item Value Reference Range Interpretation Comments PHOSPHORUS (BEAKER) (test code = 2.4 mg/dL 2.3-4.7 604) BASIC METABOLIC [id number] 13:13:00 Test Item Value Reference Range Interpretation Comments SODIUM (BEAKER) 136 meq/L 136-145 (test code = 381) POTASSIUM (BEAKER) 3.6 meq/L 3.5-5.1 (test code = 379) CHLORIDE (BEAKER) 100 meq/L 98-107 (test code = 382) CO2 (BEAKER) (test 26 meq/L 22-29 code = 355) BLOOD UREA NITROGEN 18 mg/dL 7-21 (BEAKER) (test code = 354) CREATININE (BEAKER) 1.10 mg/dL 0.57-1.25 (test code = 358) GLUCOSE RANDOM 137 mg/dL 70-105 H (BEAKER) (test code = 652) CALCIUM (BEAKER) 9.7 mg/dL 8.4-10.2 (test code = 697) EGFR (BEAKER) (test 67 mL/min/1.73 ESTIMA TOR GFR IS code = 1092) sq m NOT ACCURATE CREATININE CLEARANCE IN PREDICTING GLOMERULAR FILTRATION RATE . ESTIMATED GFR I S NOT APPLICABLE FOR DIALYSIS PATIEN TS. [id number] 13:08:00 Test Item Value Reference Range Interpretation Comments MAGNESIUM (BEAKER) (test code = 1.7 mg/dL 1.6-2.6 627) CBC W/PLT COUNT & AUTO [id number] 12:50:00 Test Item Value Reference Range Interpretation Comments WHITE BLOOD CELL COUNT (BEAKER) 9.0 K/ L 3.5-10.5 (test code = 775) RED BLOOD CELL COUNT (BEAKER) 3.02 M/ L 4.63-6.08 L (test code = 761) HEMOGLOBIN (BEAKER) (test code = 8.8 GM/DL 13.7-17.5 L 410) HEMATOCRIT (BEAKER) (test code = 27.5 % 40.1-51.0 L 411) MEAN CORPUSCULAR VOLUME (BEAKER) 91.1 fL 79.0-92.2 (test code = 753) MEAN CORPUSCULAR HEMOGLOBIN 29.1 pg 25.7-32.2 (BEAKER) (test code = 751) MEAN CORPUSCULAR HEMOGLOBIN CONC 32.0 GM/DL 32.3-36.5 L (BEAKER) (test code = 752) RED CELL DISTRIBUTION WIDTH 13.8 % 11.6-14.4 (BEAKER) (test code = 412) PLATELET COUNT (BEAKER) (test 201 K/CU MM 150-450 code = 756) MEAN PLATELET VOLUME (BEAKER) 10.4 fL 9.4-12.4 (test code = 754) NUCLEATED RED BLOOD CELLS 0 /100 WBC 0-0 (BEAKER) (test code = 413) NEUTROPHILS RELATIVE PERCENT 62 % (BEAKER) (test code = 429) LYMPHOCYTES RELATIVE PERCENT 23 % (BEAKER) (test code = 430) MONOCYTES RELATIVE PERCENT 9 % (BEAKER) (test code = 431) EOSINOPHILS RELATIVE PERCENT 5 % (BEAKER) (test code = 432) BASOPHILS RELATIVE PERCENT 1 % (BEAKER) (test code = 437) NEUTROPHILS ABSOLUTE COUNT 5.61 K/ L 1.78-5.38 H (BEAKER) (test code = 670) LYMPHOCYTES ABSOLUTE COUNT 2.05 K/ L 1.32-3.57 (BEAKER) (test code = 414) MONOCYTES ABSOLUTE COUNT (BEAKER) 0.79 K/ L 0.30-0.82 (test code = 415) EOSINOPHILS ABSOLUTE COUNT 0.47 K/ L 0.04-0.54 ([facility]) (test code = 416) BASOPHILS ABSOLUTE COUNT ([facility]) 0.06 K/ L 0.01-0.08 (test code = 417) IMMATURE GRANULOCYTES-RELATIVE 0 % 0-1 PERCENT ([facility]) (test code = 2801) POCT-GLUCOSE [id number] 12:42:00 Test Item Value Reference Range Interpretation Comments POC-GLUCOSE METER 174 mg/dL 70-110 H TESTED AT [place] [address] ([facility]) (test code = [facility] 1538) [id number] POCT-GLUCOSE [id number] 08:01:00 Test Item Value Reference Range Interpretation Comments POC-GLUCOSE METER 175 mg/dL 70-110 H TESTED AT [place] [address] ([facility]) (test code = [facility] 1538) [address] RAD, CHEST, 1 VIEW, NON [id number] 03:44:00Reason for exam:->ptxShould this be performed at the bedside?->YesFINAL REPORT RAD, CHEST, 1 VIEW, NON DEPT INDICATION: ptx COMPARISON: Prior day's exam FINDINGS: Portable frontal view of the chest. IMPRESSION: Support Lines: None. Lungs andpleura: Stable small left apical pneumothorax. Mild increase in congestive changes in the interstitial markings bilaterally. No effusion.Heart and mediastinum: Stable contours. Stable surgical changes.Additional findings: None. Signed: JR Edwards Robert MDReport Verified Date/Time: 11/18/2017 03:44:04 Reading Location: [address] Reading Room POCT- GLUCOSE [id number] 21:05:00 Test Item Value Reference Range Interpretation Comments POC-GLUCOSE METER 145 mg/dL 70-110 H TESTED AT [place] [address] ([facility]) (test code = [facility] 1538) [address] POCT-GLUCOSE [id number] 17:19:00 Test Item Value Reference Range Interpretation Comments POC-GLUCOSE METER 129 mg/dL 70-110 H TESTED AT [place] [address] (BEAKER) (test code = [facility] 1538) [address] POCT-GLUCOSE [id number] 12:12:00 Test Item Value Reference Range Interpretation Comments POC-GLUCOSE METER 194 mg/dL 70-110 H TESTED AT [facility] 6720 ([place]) (test code = [facility] 1538) [address] POCT-GLUCOSE [id number] 07:30:00 Test Item Value Reference Range Interpretation Comments POC-GLUCOSE METER 171 mg/dL 70-110 H TESTED AT [facility] 6720 ([place]) (test code = [facility] 1538) [address] RAD, CHEST, 1 VIEW, NON [id number] 07:27:00Reason for exam:->ptxShould this be performed at the bedside?->YesFINAL REPORT HISTORY : ptx. Comparison: 11/16/2017 Comment: Single portable view of the chest was obtained. Cardiac silhouette size is enlarged. There is some left perihilar linear subsegmental atelectasis versus scarring. There is some mild pulmonary venous congestion. Some patchy perihilar densities could represent interstitial edema or a nonspecific pneumonitis. There is a small left apical pneumothorax which has slightly diminished. No pleural effusion is seen. Signed: Boaz Estebanort Verified Date/Time: 11/17/2017 07:27:16 Reading Location: [facility] C0W Consult Reading Room [id number] 07:19:00 Test Item Value Reference Range Interpretation Comments MAGNESIUM (BEAKER) (test code = 1.9 mg/dL 1.6-2.6 627) BASIC METABOLIC [id number] 07:19:00 Test Item Value Reference Range Interpretation Comments SODIUM (BEAKER) 135 meq/L 136-145 L (test code = 381) POTASSIUM (BEAKER) 3.7 meq/L 3.5-5.1 (test code = 379) CHLORIDE (BEAKER) 101 meq/L 98-107 (test code = 382) CO2 (BEAKER) (test 25 meq/L 22-29 code = 355) BLOOD UREA NITROGEN 19 mg/dL 7-21 (BEAKER) (test code = 354) CREATININE (BEAKER) 1.06 mg/dL 0.57-1.25 (test code = 358) GLUCOSE RANDOM 134 mg/dL 70-105 H (BEAKER) (test code = 652) CALCIUM (BEAKER) 9.5 mg/dL 8.4-10.2 (test code = 697) EGFR (BEAKER) (test 69 mL/min/1.73 ESTIMA TOR GFR IS code = 1092) sq m NOT ACCURATE CREATININE CLEARANCE IN PREDICTING GLOMERULAR FILTRATION RATE . ESTIMATED GFR I S NOT APPLICABLE FOR DIALYSIS PATIEN TS. POCT-GLUCOSE [id number] 21:30:00 Test Item Value Reference Range Interpretation Comments POC-GLUCOSE METER 214 mg/dL 70-110 H TESTED AT [facility] 6720 (BEAKER) (test code = [place] 1538) [id number] URINALYSIS W/ REFLEX URINE [id number] 16:32:00 Test Item Value Reference Range Interpretation Comments COLOR (BEAKER) (test code = 470) Yellow CLARITY (BEAKER) (test code = 469) Clear SPECIFIC GRAVITY UA (BEAKER) (test 1.019 1.001-1.035 code = 468) PH UA (BEAKER) (test code = 467) 5.5 5.0-8.0 PROTEIN UA (BEAKER) (test code = 100 mg/dL Negative A 464) GLUCOSE UA (BEAKER) (test code = Negative Negative 365) KETONES UA (BEAKER) (test code = Negative Negative 371) BILIRUBIN UA (BEAKER) (test code = Negative Negative 462) BLOOD UA (BEAKER) (test code = 461) Negative Negative NITRITE UA (BEAKER) (test code = Negative Negative 465) LEUKOCYTE ESTERASE UA (BEAKER) Negative Negative (test code = 466) UROBILINOGEN UA (BEAKER) (test code 0.2 mg/dL 0.2-1.0 = 463) RBC UA (BEAKER) (test code = 519) 1 /HPF WBC UA (BEAKER) (test code = 520) 2 /HPF SQUAMOUS EPITHELIAL (BEAKER) (test < /HPF code = 516) HYALINE CASTS (BEAKER) (test code = 2 /LPF 514) SOURCE(BEAKER) (test code = 9245) RAD, CHEST, 1 VIEW, NON [id number] 15:34:00Reason for exam:->ptxShould this be performed at the bedside?->YesFINAL REPORT HISTORY : ptx. Comparison: 11/16/2017 Comment: Single portable view of the chest was obtained. The cardiac silhouette size is enlarged. The patient is status post sternotomy. No pleural effusion or focal infiltrate is seen. There is a small left apical pneumothorax which is not appreciably changed. There is some left perihilar linear subsegmental atelectasis versusscarring. There has been interval removal of the left sided chest tube. Signed: Boaz Esteban Verified Date/Time: 11/16/2017 15:34:49 Reading Location: [address] Reading Room POCT-GLUCOSE [id number] 12:10:00 Test Item Value Reference Range Interpretation Comments POC-GLUCOSE METER 203 mg/dL 70-110 H TESTED AT [place] [address] ([facility]) (test code = [facility] 1538) [id number] POCT-GLUCOSE [id number] 08:21:00 Test Item Value Reference Range Interpretation Comments POC-GLUCOSE METER 181 mg/dL 70-110 H TESTED AT [place] [address] ([facility]) (test code = [facility] 1538) [address] RAD, CHEST, 1 VIEW, NON [id number] 08:03:00while patient is intubated or has chest tubes.Reason for exam:->PostopShould this be performed atthe bedside?->YesFINAL REPORT Chest one view compared to November 15 Discussion: Left chest tube is again noted. A left apical pneumothorax appears minimally larger now with pleural separation 1.8 cm. Patchy airspace opacities left mid lung overall similar. No effusion. IMPRESSIONS: A left-sided pneumothorax appears minimally larger. Signed: Denice Tran Verified Date/Time: 11/16/2017 08:03:32 Reading Location: [address] Reading Room POCT-GLUCOSE [id number] 00:11:00 Test Item Value Reference Range Interpretation Comments POC-GLUCOSE METER 159 mg/dL 70-110 H TESTED AT [place] [address] ([facility]) (test code = [facility] 1538) [id number] POCT-GLUCOSE [id number] 20:33:00 Test Item Value Reference Range Interpretation Comments POC-GLUCOSE METER 163 mg/dL 70-110 H TESTED AT [place] [address] ([facility]) (test code = [facility] 1538) [id number] POCT-GLUCOSE [id number] 17:33:00 Test Item Value Reference Range Interpretation Comments POC-GLUCOSE METER 183 mg/dL 70-110 H TESTED AT [place] [address] ([facility]) (test code = [facility] 1538) [address] URINE IMMUNOFIXATION, [id number] 17:17:00 Test Item Value Reference Range Interpretation Comments PROTEIN, URINE 30 mg/dL 0-14 H ([facility]) (test code = 1569) ALBUMIN URINE ELP 61.4 % ([facility]) (test code = 1018) GAMMA GLOBULIN URINE 38.6 % ([facility]) (test code = 1015) URINE GERARD [id number] No monoclonal proteins ([facility]) (test code = or monoclonal free 2602) light chains detected. [id number] Raine Martin MD ([facility]) (test code = (electronic signature) 2603) RAD, CHEST, 1 VIEW, NON [id number] 13:19:00while patient is intubated or has chest tubes.Reason for exam:->PostopShould this be performed atthe bedside?->YesFINAL REPORT Chest one view compared to November 14 Discussion: Left chest tube, right IJ pulmonary catheter are noted. There is pulmonary congestion and right midlung linear atelectasis grossly similar. No gross effusion. Tiny left apical pneumothorax unchanged. Signed: Denice Tran Verified Date/Time: 11/15/2017 13:19:28 Reading Location: [facility] Radiology ReadingRoom URINE PROTEIN ELECTROPHORESIS, RANDOM 2017-11-15 12:47:00 Test Item Value Reference Range Interpretation Comments PROTEIN, URINE 12 mg/dL 0-14 (BEAKER) (test code = 1569) ALBUMIN URINE ELP 61.4 % (BEAKER) (test code = 1018) GAMMA GLOBULIN URINE 38.6 % (BEAKER) (test code = 1015) UPEP, ID-[id number] (BEAKER) No monoclonal bands (test code = 2604) detected. [id number] Raine Martin MD (BEAKER) (test code = (electronic signature) 2605) PROTEIN ELECTROPHORESIS, [id number] 12:29:00 Test Item Value Reference Range Interpretation Comments ALBUMIN FRACTION 3.3 g/dL 3.5-5.5 L (BEAKER) (test code = 405) ALPHA 1 FRACTION 0.3 g/dL 0.2-0.4 (BEAKER) (test code = 389) ALPHA 2 FRACTION 1.5 g/dL 0.5-0.9 H (BEAKER) (test code = 390) BETA FRACTION 1.0 g/dL 0.6-1.1 (BEAKER) (test code = 392) GAMMA GLOBULIN 0.9 g/dL 0.7-1.7 FRACTION (BEAKER) (test code = 391) INTERPRETATION-119 Elevation of alpha-2 (BEAKER) (test code = fraction, which september 2614) represent a haptoglobin polymorphism or submission of a hemolyzed sample. No monoclonal bands detected. [id number] Raine Martin MD (BEAKER) (test code = (electronic signature) 2614) PROTEIN TOTAL SERUM, 7.0 gm/dL 6.0-8.3 SPEP (BEAKER) (test code = 2660) BLOOD GAS, [id number] 08:21:00 Test Item Value Reference Range Interpretation Comments PH ARTERIAL (BEAKER) (test code = 7.45 7.35-7.45 383) PCO2 ARTERIAL (BEAKER) (test code 37 mmHg 35-45 = 384) PO2 ARTERIAL (BEAKER) (test code = 84 mmHg 80-90 385) O2 SATURATION ARTERIAL (BEAKER) 96.5 % 96.0-97.0 (test code = 386) HCO3 ARTERIAL (BEAKER) (test code 25 mmol/L 21-29 = 388) BASE EXCESS ARTERIAL (BEAKER) 1.4 mmol/L -2.0-3.0 (test code = 387) PATIENT TEMPERATURE (BEAKER) (test 37.7 C code = 1818) FIO2 (BEAKER) (test code = 1819) 20.0 % BASIC METABOLIC [id number] 08:03:00 Test Item Value Reference Range Interpretation Comments SODIUM (BEAKER) 136 meq/L 136-145 (test code = 381) POTASSIUM (BEAKER) 4.0 meq/L 3.5-5.1 Specimen moderately (test code = 379) hemolyzed CHLORIDE (BEAKER) 103 meq/L 98-107 (test code = 382) CO2 (BEAKER) (test 24 meq/L 22-29 code = 355) BLOOD UREA NITROGEN 16 mg/dL 7-21 (BEAKER) (test code = 354) CREATININE (BEAKER) 1.06 mg/dL 0.57-1.25 Specimen moderately (test code = 358) hemolyzed GLUCOSE RANDOM 174 mg/dL 70-105 H (BEAKER) (test code = 652) CALCIUM (BEAKER) 8.9 mg/dL 8.4-10.2 (test code = 697) EGFR (BEAKER) (test 69 mL/min/1.73 ESTIMA TOR GFR IS code = 1092) sq m NOT ACCURATE CREATININE CLEARANCE IN PREDICTING GLOMERULAR FILTRATION RATE . ESTIMATED GFR I S NOT APPLICABLE FOR DIALYSIS PATIEN TS. LACTIC ACID, ARTERIAL, WHOLE [id number] 07:57:00 Test Item Value Reference Range Interpretation Comments LACTATE BLOOD ARTERIAL (2) 0.8 mmol/L 0.5-2.2 (BEAKER) (test code = 2874) Effective 09/07/2015: Units/Reference Range ChangeNew: 0.5-2.2 mmol/L Previous: 5-20 mg/[id number] 02:55:00 Test Item Value Reference Range Interpretation Comments PHOSPHORUS (BEAKER) (test code = 2.8 mg/dL 2.3-4.7 604) [id number] 02:55:00 Test Item Value Reference Range Interpretation Comments MAGNESIUM (BEAKER) (test code = 2.1 mg/dL 1.6-2.6 627) BASIC METABOLIC [id number] 02:55:00 Test Item Value Reference Range Interpretation Comments SODIUM (BEAKER) 139 meq/L 136-145 (test code = 381) POTASSIUM (BEAKER) 3.8 meq/L 3.5-5.1 (test code = 379) CHLORIDE (BEAKER) 106 meq/L 98-107 (test code = 382) CO2 (BEAKER) (test 26 meq/L 22-29 code = 355) BLOOD UREA NITROGEN 18 mg/dL 7-21 (BEAKER) (test code = 354) CREATININE (BEAKER) 1.10 mg/dL 0.57-1.25 (test code = 358) GLUCOSE RANDOM 119 mg/dL 70-105 H (BEAKER) (test code = 652) CALCIUM (BEAKER) 8.7 mg/dL 8.4-10.2 (test code = 697) EGFR (BEAKER) (test 67 mL/min/1.73 ESTIMA TOR GFR IS code = 1092) sq m NOT ACCURATE CREATININE CLEARANCE IN PREDICTING GLOMERULAR FILTRATION RATE . ESTIMATED GFR I S NOT APPLICABLE FOR DIALYSIS PATIEN TS. PROTHROMBIN [id number] 02:53:00 Test Item Value Reference Range Interpretation Comments PROTIME (BEAKER) (test code = 14.9 seconds 11.7-14.7 H 759) INR (BEAKER) (test code = 370) 1.2 <=5.9 RECOMMENDED COUMADIN/WARFARIN INR THERAPY RANGESSTANDARD DOSE: 2.0 - 3.0 Includes: PROPHYLAXIS forvenous thrombosis, systemic embolization; TREATMENT for venous thrombosis and/or pulmonary embolus.HIGH RISK: Target INR is 2.5-3.5 for patients with mechanical heart valves.[id number] 02:53:00 Test Item Value Reference Range Interpretation Comments PARTIAL THROMBOPLASTIN TIME 34.0 seconds 22.5-36.0 (BEAKER) (test code = 760) CBC W/PLT COUNT & AUTO [id number] 02:43:00 Test Item Value Reference Range Interpretation Comments WHITE BLOOD CELL COUNT (BEAKER) 11.9 K/ L 3.5-10.5 H (test code = 775) RED BLOOD CELL COUNT (BEAKER) 3.35 M/ L 4.63-6.08 L (test code = 761) HEMOGLOBIN (BEAKER) (test code = 9.8 GM/DL 13.7-17.5 L 410) HEMATOCRIT (BEAKER) (test code = 29.6 % 40.1-51.0 L 411) MEAN CORPUSCULAR VOLUME (BEAKER) 88.4 fL 79.0-92.2 (test code = 753) MEAN CORPUSCULAR HEMOGLOBIN 29.3 pg 25.7-32.2 (BEAKER) (test code = 751) MEAN CORPUSCULAR HEMOGLOBIN CONC 33.1 GM/DL 32.3-36.5 (BEAKER) (test code = 752) RED CELL DISTRIBUTION WIDTH 13.6 % 11.6-14.4 (BEAKER) (test code = 412) PLATELET COUNT (BEAKER) (test 167 K/CU MM 150-450 code = 756) MEAN PLATELET VOLUME (BEAKER) 10.0 fL 9.4-12.4 (test code = 754) NUCLEATED RED BLOOD CELLS 0 /100 WBC 0-0 (BEAKER) (test code = 413) NEUTROPHILS RELATIVE PERCENT 75 % (BEAKER) (test code = 429) LYMPHOCYTES RELATIVE PERCENT 14 % (BEAKER) (test code = 430) MONOCYTES RELATIVE PERCENT 10 % (BEAKER) (test code = 431) EOSINOPHILS RELATIVE PERCENT 1 % (BEAKER) (test code = 432) BASOPHILS RELATIVE PERCENT 1 % (BEAKER) (test code = 437) NEUTROPHILS ABSOLUTE COUNT 8.86 K/ L 1.78-5.38 H (BEAKER) (test code = 670) LYMPHOCYTES ABSOLUTE COUNT 1.68 K/ L 1.32-3.57 (BEAKER) (test code = 414) MONOCYTES ABSOLUTE COUNT (BEAKER) 1.15 K/ L 0.30-0.82 H (test code = 415) EOSINOPHILS ABSOLUTE COUNT 0.08 K/ L 0.04-0.54 (BEAKER) (test code = 416) BASOPHILS ABSOLUTE COUNT (BEAKER) 0.06 K/ L 0.01-0.08 (test code = 417) IMMATURE GRANULOCYTES-RELATIVE 0 % 0-1 PERCENT (BEAKER) (test code = 2801) PLATELET [id number] 02:35:00 Test Item Value Reference Range Interpretation Comments PLATELET COUNT (BEAKER) (test 167 K/CU MM 150-450 code = 756) GLUCOSE-STAT [id number] 02:32:00 Test Item Value Reference Range Interpretation Comments GLUCOSE RANDOM (BEAKER) (test code 112 mg/dL 70-110 H = 652) HGB/HCT (H&H) - STAT [id number] 02:32:00 Test Item Value Reference Range Interpretation Comments HEMOGLOBIN (BEAKER) (test code = 10.5 g/dL 13.0-16.8 L 410) HEMATOCRIT (BEAKER) (test code = 31.0 % 40.0-50.0 L 411) CALCIUM, [id number] 02:31:00 Test Item Value Reference Range Interpretation Comments CALCIUM IONIZED (BEAKER) (test 1.18 mmol/L 1.12-1.27 code = 698) PH, BLOOD (AKER) (test code = 7.38 1810) SODIUM NA-STAT [id number] 02:31:00 Test Item Value Reference Range Interpretation Comments SODIUM (BEAKER) (test code = 381) 137 meq/L 135-148 POTASSIUM-STAT [id number] 02:31:00 Test Item Value Reference Range Interpretation Comments POTASSIUM (BEAKER) (test code = 3.7 meq/L 3.6-5.5 379) POCT-GLUCOSE [id number] 00:40:00 Test Item Value Reference Range Interpretation Comments POC-GLUCOSE METER 129 mg/dL 70-110 H TESTED AT [place] [address] ([facility]) (test code = [facility] 1538) [id number] POCT-GLUCOSE [id number] 00:40:00 Test Item Value Reference Range Interpretation Comments POC-GLUCOSE METER 143 mg/dL 70-110 H TESTED AT [place] [address] ([facility]) [facility] 1538[facility] [address] POCT-GLUCOSE [id number] 21:41:00 Test Item Value Reference Range Interpretation Comments POC-GLUCOSE METER 179 mg/dL 70-110 H TESTED AT [place] [address] ([facility]) ([facility] 1538) [address] BLOOD GAS, [id number] 19:39:00 Test Item Value Reference Range Interpretation Comments PH ARTERIAL (BEAKER) (test code = 7.47 7.35-7.45 H 383) PCO2 ARTERIAL (BEAKER) (test code 36 mmHg 35-45 = 384) PO2 ARTERIAL (BEAKER) (test code = 123 mmHg 80-90 H 385) O2 SATURATION ARTERIAL (BEAKER) 98.6 % 96.0-97.0 H (test code = 386) HCO3 ARTERIAL (BEAKER) (test code 26 mmol/L 21-29 = 388) BASE EXCESS ARTERIAL (BEAKER) 2.1 mmol/L -2.0-3.0 (test code = 387) PATIENT TEMPERATURE (BEAKER) (test 37.6 C code = 1818) FIO2 (BEAKER) (test code = 1819) 40.0 % GLUCOSE-STAT [id number] 19:39:00 Test Item Value Reference Range Interpretation Comments GLUCOSE RANDOM (BEAKER) (test code 160 mg/dL 70-110 H = 652) HGB/HCT (H&H) - STAT [id number] 19:39:00 Test Item Value Reference Range Interpretation Comments HEMOGLOBIN (BEAKER) (test code = 11.0 g/dL 13.0-16.8 L 410) HEMATOCRIT (BEAKER) (test code = 32.0 % 40.0-50.0 L 411) SODIUM NA-STAT [id number] 19:37:00 Test Item Value Reference Range Interpretation Comments SODIUM (BEAKER) (test code = 381) 137 meq/L 135-148 POTASSIUM-STAT [id number] 19:37:00 Test Item Value Reference Range Interpretation Comments POTASSIUM (BEAKER) (test code = 4.0 meq/L 3.6-5.5 379) BLOOD GAS, [id number] 18:02:00 Test Item Value Reference Range Interpretation Comments PH ARTERIAL (BEAKER) (test code = 7.45 7.35-7.45 383) PCO2 ARTERIAL (BEAKER) (test code 37 mmHg 35-45 = 384) PO2 ARTERIAL (BEAKER) (test code = 105 mmHg 80-90 H 385) O2 SATURATION ARTERIAL (BEAKER) 98.1 % 96.0-97.0 H (test code = 386) HCO3 ARTERIAL (BEAKER) (test code 25 mmol/L 21-29 = 388) BASE EXCESS ARTERIAL (BEAKER) 1.3 mmol/L -2.0-3.0 (test code = 387) PATIENT TEMPERATURE (BEAKER) (test 36.6 C code = 1818) FIO2 (BEAKER) (test code = 1819) 40.0 % Only if arterial line present.RAD, CHEST, 1 VIEW, NON [id number] 17:20:00 Reason for exam:->PostopShould this be performed at the bedside?->YesFINAL REPORT EXAM: Frontal chest radiograph HISTORY PROVIDED: Postop COMPARISON: 11/13/2017 IMPRESSION:The tip of an endotracheal tube terminates 3.8 cm above the alexia. A right IJ approach [place]-Jun catheter has been placed with its tip projecting over the pulmonary outflow tract. A left thoracostomy tube is in place. An enteric tube descends below the diaphragm and its tip may be off the field of view or obscured and cannot be seen. No discernible pneumothorax. There is pulmonary vascular congestion without overt pulmonary edema. No significant pleural fluid. The cardiac silhouette is magnified. No acute osseous abnormality. Signed: Clayton Banegas MDReport Verified Date/Time: 11/14/2017 17:20:20 Reading Location: [facility] Mammo Reading Room C METABOLIC [id number] 16:02:00 Test Item Value Reference Range Interpretation Comments SODIUM (BEAKER) 138 meq/L 136-145 (test code = 381) POTASSIUM (BEAKER) 3.9 meq/L 3.5-5.1 Specimen slightly (test code = 379) hemolyzed CHLORIDE (BEAKER) 106 meq/L 98-107 (test code = 382) CO2 (BEAKER) (test 22 meq/L 22-29 code = 355) BLOOD UREA NITROGEN 23 mg/dL 7-21 H (BEAKER) (test code = 354) CREATININE (BEAKER) 1.12 mg/dL 0.57-1.25 Specimen slightly (test code = 358) hemolyzed GLUCOSE RANDOM 168 mg/dL 70-105 H (BEAKER) (test code = 652) CALCIUM (BEAKER) 8.2 mg/dL 8.4-10.2 L (test code = 697) EGFR (BEAKER) (test 65 mL/min/1.73 ESTIMA TOR GFR IS code = 1092) sq m NOT ACCURATE CREATININE CLEARANCE IN PREDICTING GLOMERULAR FILTRATION RATE . ESTIMATED GFR I S NOT APPLICABLE FOR DIALYSIS PATIEN TS. [id number] 16:02:00 Test Item Value Reference Range Interpretation Comments PHOSPHORUS (BEAKER) (test code = 2.3 mg/dL 2.3-4.7 604) [id number] 16:02:00 Test Item Value Reference Range Interpretation Comments MAGNESIUM (BEAKER) (test code = 2.6 mg/dL 1.6-2.6 627) LACTIC ACID, ARTERIAL, WHOLE [id number] 15:58:00 Test Item Value Reference Range Interpretation Comments LACTATE BLOOD 0.9 mmol/L 0.5-2.2 Specimen sligh tly ARTERIAL (2) (BEAKER) hemoly zed (test code = 2874) Effective 09/07/2015: Units/Reference Range ChangeNew: 0.5-2.2 mmol/L Previous: 5-20 mg/dLCBC W/PLT COUNT & AUTO [id number] 15:47:00 Test Item Value Reference Range Interpretation Comments WHITE BLOOD CELL COUNT (BEAKER) 13.6 K/ L 3.5-10.5 H (test code = 775) RED BLOOD CELL COUNT (BEAKER) 3.46 M/ L 4.63-6.08 L (test code = 761) HEMOGLOBIN (BEAKER) (test code = 10.2 GM/DL 13.7-17.5 L 410) HEMATOCRIT (BEAKER) (test code = 31.2 % 40.1-51.0 L 411) MEAN CORPUSCULAR VOLUME (BEAKER) 90.2 fL 79.0-92.2 (test code = 753) MEAN CORPUSCULAR HEMOGLOBIN 29.5 pg 25.7-32.2 (BEAKER) (test code = 751) MEAN CORPUSCULAR HEMOGLOBIN CONC 32.7 GM/DL 32.3-36.5 (BEAKER) (test code = 752) RED CELL DISTRIBUTION WIDTH 13.5 % 11.6-14.4 (BEAKER) (test code = 412) PLATELET COUNT (BEAKER) (test 197 K/CU MM 150-450 code = 756) MEAN PLATELET VOLUME (BEAKER) 10.4 fL 9.4-12.4 (test code = 754) NUCLEATED RED BLOOD CELLS 0 /100 WBC 0-0 (BEAKER) (test code = 413) NEUTROPHILS RELATIVE PERCENT 76 % (BEAKER) (test code = 429) LYMPHOCYTES RELATIVE PERCENT 15 % (BEAKER) (test code = 430) MONOCYTES RELATIVE PERCENT 6 % (BEAKER) (test code = 431) EOSINOPHILS RELATIVE PERCENT 2 % (BEAKER) (test code = 432) BASOPHILS RELATIVE PERCENT 0 % (BEAKER) (test code = 437) NEUTROPHILS ABSOLUTE COUNT 10.28 K/ L 1.78-5.38 H (BEAKER) (test code = 670) LYMPHOCYTES ABSOLUTE COUNT 2.04 K/ L 1.32-3.57 (BEAKER) (test code = 414) MONOCYTES ABSOLUTE COUNT (BEAKER) 0.80 K/ L 0.30-0.82 (test code = 415) EOSINOPHILS ABSOLUTE COUNT 0.31 K/ L 0.04-0.54 (BEAKER) (test code = 416) BASOPHILS ABSOLUTE COUNT (BEAKER) 0.05 K/ L 0.01-0.08 (test code = 417) IMMATURE GRANULOCYTES-RELATIVE 1 % 0-1 PERCENT (BEAKER) (test code = 2801) OXYGEN SATURATION, [id number] 15:37:00 Test Item Value Reference Range Interpretation Comments O2 SATURATION (MEASURED) (BEAKER) 55.5 % (test code = 1455) CALCIUM, [id number] 15:37:00 Test Item Value Reference Range Interpretation Comments CALCIUM IONIZED (BEAKER) (test 1.12 mmol/L 1.12-1.27 code = 698) PH, BLOOD (BEAKER) (test code = 7.41 1810) SODIUM NA-STAT [id number] 15:37:00 Test Item Value Reference Range Interpretation Comments SODIUM (BEAKER) (test code = 381) 138 meq/L 135-148 POTASSIUM-STAT [id number] 15:37:00 Test Item Value Reference Range Interpretation Comments POTASSIUM (BEAKER) (test code = 3.6 meq/L 3.6-5.5 379) BLOOD GAS, [id number] 15:37:00 Test Item Value Reference Range Interpretation Comments PH ARTERIAL (BEAKER) (test code = 7.43 7.35-7.45 383) PCO2 ARTERIAL (BEAKER) (test code 41 mmHg 35-45 = 384) PO2 ARTERIAL (BEAKER) (test code = 164 mmHg 80-90 H 385) O2 SATURATION ARTERIAL (BEAKER) 99.2 % 96.0-97.0 H (test code = 386) HCO3 ARTERIAL (BEAKER) (test code 27 mmol/L 21-29 = 388) BASE EXCESS ARTERIAL (BEAKER) 1.8 mmol/L -2.0-3.0 (test code = 387) PATIENT TEMPERATURE (BEAKER) (test 35.7 C code = 1818) FIO2 (BEAKER) (test code = 1819) 60.0 % GLUCOSE-STAT [id number] 15:37:00 Test Item Value Reference Range Interpretation Comments GLUCOSE RANDOM (BEAKER) (test code 162 mg/dL 70-110 H = 652) HEMOGLOBIN-STAT [id number] 15:37:00 Test Item Value Reference Range Interpretation Comments HEMOGLOBIN (BEAKER) (test code = 11.2 g/dL 13.0-16.8 L 410) HGB/HCT (H&H) - STAT [id number] 15:37:00 Test Item Value Reference Range Interpretation Comments HEMOGLOBIN (BEAKER) (test code = 11.2 GM/DL 13.0-16.8 L 410) HEMATOCRIT (BEAKER) (test code = 33.0 % 40.0-50.0 L 411) [id number] 14:04:00 Test Item Value Reference Range Interpretation Comments ACTIVATED CLOTTING TIME 114 sec TEST ED AT [place] [address] ([facility]) (test code = BREEZY Moss [place] [address]) [id number] 14:04:00 Test Item Value Reference Range Interpretation Comments ACTIVATED CLOTTING TIME 472 sec TEST ED AT [place] [address] ([facility]) (test code = ARTUROJOCE Isa [place] [address]) [id number] 14:04:00 Test Item Value Reference Range Interpretation Comments ACTIVATED CLOTTING TIME 505 sec TEST ED AT [place] [address] ([facility]) (test code = ARTUROJOCE Moss [place] [address]) [id number] [id number] 14:04:00 Test Item Value Reference Range Interpretation Comments ACTIVATED CLOTTING TIME 543 sec TEST ED AT [place] [address] ([facility]) (test code = BREEZY Moss [place] [address]) [address] CALCIUM, [id number] 13:58:00 Test Item Value Reference Range Interpretation Comments CALCIUM IONIZED (BEAKER) (test 1.11 mmol/L 1.12-1.27 L code = 698) PH, BLOOD (BEAKER) (test code = 7.36 1810) BLOOD GAS, [id number] 13:56:00 Test Item Value Reference Range Interpretation Comments PH ARTERIAL (BEAKER) (test code = 7.37 7.35-7.45 383) PCO2 ARTERIAL (BEAKER) (test code 50 mmHg 35-45 H = 384) PO2 ARTERIAL (BEAKER) (test code = 166 mmHg 80-90 H 385) O2 SATURATION ARTERIAL (BEAKER) 99.1 % 96.0-97.0 H (test code = 386) HCO3 ARTERIAL (BEAKER) (test code 28 mmol/L 21-29 = 388) BASE EXCESS ARTERIAL (BEAKER) 2.1 mmol/L -2.0-3.0 (test code = 387) PATIENT TEMPERATURE (BEAKER) (test 36.0 C code = 1818) FIO2 (BEAKER) (test code = 1819) 100.0 % GLUCOSE-STAT [id number] 13:56:00 Test Item Value Reference Range Interpretation Comments GLUCOSE RANDOM (BEAKER) (test code 167 mg/dL 70-110 H = 652) HGB/HCT (H&H) - STAT [id number] 13:56:00 Test Item Value Reference Range Interpretation Comments HEMOGLOBIN (BEAKER) (test code = 10.8 g/dL 13.0-16.8 L 410) HEMATOCRIT (BEAKER) (test code = 32.0 % 40.0-50.0 L 411) SODIUM NA-STAT [id number] 13:55:00 Test Item Value Reference Range Interpretation Comments SODIUM (BEAKER) (test code = 381) 136 meq/L 135-148 POTASSIUM-STAT [id number] 13:55:00 Test Item Value Reference Range Interpretation Comments POTASSIUM (BEAKER) (test code = 3.8 meq/L 3.6-5.5 379) BLOOD GAS, [id number] 12:54:00 Test Item Value Reference Range Interpretation Comments PH ARTERIAL (BEAKER) (test code = 7.50 7.35-7.45 H 383) PCO2 ARTERIAL (BEAKER) (test code 35 mmHg 35-45 = 384) PO2 ARTERIAL (BEAKER) (test code = 214 mmHg 80-90 H 385) O2 SATURATION ARTERIAL (BEAKER) 99.5 % 96.0-97.0 H (test code = 386) HCO3 ARTERIAL (BEAKER) (test code 27 mmol/L 21-29 = 388) BASE EXCESS ARTERIAL (BEAKER) 3.4 mmol/L -2.0-3.0 H (test code = 387) PATIENT TEMPERATURE (BEAKER) (test 35.0 C code = 1818) FIO2 (BEAKER) (test code = 1819) 65.0 % SODIUM NA-STAT [id number] 12:54:00 Test Item Value Reference Range Interpretation Comments SODIUM (BEAKER) (test code = 381) 134 meq/L 135-148 L GLUCOSE-STAT [id number] 12:54:00 Test Item Value Reference Range Interpretation Comments GLUCOSE RANDOM (BEAKER) (test code 158 mg/dL 70-110 H = 652) HGB/HCT (H&H) - STAT [id number] 12:54:00 Test Item Value Reference Range Interpretation Comments HEMOGLOBIN (BEAKER) (test code = 8.8 g/dL 13.0-16.8 L 410) HEMATOCRIT (BEAKER) (test code = 26.0 % 40.0-50.0 L 411) POTASSIUM-STAT [id number] 12:53:00 Test Item Value Reference Range Interpretation Comments POTASSIUM (BEAKER) (test code = 4.1 meq/L 3.6-5.5 379) BLOOD GAS, [id number] 12:20:00 Test Item Value Reference Range Interpretation Comments PH ARTERIAL (BEAKER) (test code = 7.51 7.35-7.45 H 383) PCO2 ARTERIAL (BEAKER) (test code 34 mmHg 35-45 L = 384) PO2 ARTERIAL (BEAKER) (test code = 294 mmHg 80-90 H 385) O2 SATURATION ARTERIAL (BEAKER) 99.7 % 96.0-97.0 H (test code = 386) HCO3 ARTERIAL (BEAKER) (test code 28 mmol/L 21-29 = 388) BASE EXCESS ARTERIAL (BEAKER) 2.7 mmol/L -2.0-3.0 (test code = 387) PATIENT TEMPERATURE (BEAKER) (test 29.0 C code = 1818) FIO2 (BEAKER) (test code = 1819) 60.0 % SODIUM NA-STAT [id number] 12:20:00 Test Item Value Reference Range Interpretation Comments SODIUM (BEAKER) (test code = 381) 134 meq/L 135-148 L GLUCOSE-STAT [id number] 12:20:00 Test Item Value Reference Range Interpretation Comments GLUCOSE RANDOM (BEAKER) (test code 187 mg/dL 70-110 H = 652) HGB/HCT (H&H) - STAT [id number] 12:20:00 Test Item Value Reference Range Interpretation Comments HEMOGLOBIN (BEAKER) (test code = 10.0 g/dL 13.0-16.8 L 410) HEMATOCRIT (BEAKER) (test code = 29.0 % 40.0-50.0 L 411) BLOOD GAS, [id number] 12:20:00 Test Item Value Reference Range Interpretation Comments PH VENOUS (BEAKER) (test code = 7.47 7.32-7.42 H 701) PCO2 VENOUS (BEAKER) (test code = 37 mmHg 41-51 L 755) PO2 VENOUS (BEAKER) (test code = 47 mmHg 25-40 H 702) O2 SATURATION VENOUS (BEAKER) 95.0 % 40.0-70.0 H (test code = 703) HCO3 VENOUS (BEAKER) (test code = 29 mmol/L 21-29 705) BASE EXCESS VENOUS (BEAKER) (test 2.7 mmol/L -2.0-3.0 code = 704) PATIENT TEMPERATURE (BEAKER) (test 29.0 C code = 1818) FIO2 (BEAKER) (test code = 1819) 60.0 % POTASSIUM-STAT [id number] 12:18:00 Test Item Value Reference Range Interpretation Comments POTASSIUM (BEAKER) (test code = 3.5 meq/L 3.6-5.5 L 379) U/S, RENAL WITH [id number] 08:35:00Reason for exam:->INCLUDE DOPPLERS AND PVR- for size, echogenicity and PVR.Should this be performed at the bedside?->NoFINAL REPORT History: Kidney disease Comparison: None Discussion : Transverse and longitudinal images of the kidneys were performed bilaterally as well as color Doppler and spectral interrogation of the renal arteries. The right kidney is normal in size measuring 11.6 x 4.8 x 6.5 cm cortical thickness of 1.2 cm. Cortical echogenicity is within normal limits. There is no evidence for solid renal mass, hydronephrosis, or shadowing calculi. The main renal artery and vein are patent. Arterial waveforms are within normal limits. The resistive index of the right upper, middle andlower poles of the kidney are 0.69, 0.69 and 0.69. The left kidney is normal in size measuring 11.8x 5.3 x 5.3 cm with cortical thickness of 1.5 cm. Cortical echogenicity is within normal limits. There is no evidence for solid renal mass, hydronephrosis, shadowing calculi. The main renal artery and vein are patent. Arterial waveforms are within normal limits. The resistive index of the left upper, middle and lower poles of the kidney are 0.69, 0.73 and 0.70. The bladder is only partially distended but appears grossly unremarkable. Impression: Unremarkable renal ultrasound examination and Doppler evaluation. Signed: Willie Sanchez MDReport Verified Date/Time: 11/14/2017 08:35:40 Reading Location: [address] Ultrasound Reading Room POCT-GLUCOSE [id number] 07:34:00 Test Item Value Reference Range Interpretation Comments POC-GLUCOSE METER 190 mg/dL 70-110 H TESTED AT [facility] 67[facility] ([facility] (test code = BREEZY Moss [facility] 1538) [address] [id number] 05:19:00 Test Item Value Reference Range Interpretation Comments MAGNESIUM (BEAKER) (test code = 2.0 mg/dL 1.6-2.6 627) BASIC METABOLIC [id number] 05:19:00 Test Item Value Reference Range Interpretation Comments SODIUM (BEAKER) 137 meq/L 136-145 (test code = 381) POTASSIUM (BEAKER) 3.6 meq/L 3.5-5.1 (test code = 379) CHLORIDE (BEAKER) 99 meq/L 98-107 (test code = 382) CO2 (BEAKER) (test 27 meq/L 22-29 code = 355) BLOOD UREA NITROGEN 24 mg/dL 7-21 H (BEAKER) (test code = 354) CREATININE (BEAKER) 1.29 mg/dL 0.57-1.25 H (test code = 358) GLUCOSE RANDOM 173 mg/dL 70-105 H (BEAKER) (test code = 652) CALCIUM (BEAKER) 9.9 mg/dL 8.4-10.2 (test code = 697) EGFR (BEAKER) (test 55 mL/min/1.73 ESTIMA TOR GFR IS code = 1092) sq m NOT ACCURATE CREATININE CLEARANCE IN PREDICTING GLOMERULAR FILTRATION RATE . ESTIMATED GFR I S NOT APPLICABLE FOR DIALYSIS PATIEN TS. CBC W/PLT COUNT & AUTO [id number] 05:00:00 Test Item Value Reference Range Interpretation Comments WHITE BLOOD CELL COUNT (BEAKER) 9.0 K/ L 3.5-10.5 (test code = 775) RED BLOOD CELL COUNT (BEAKER) 4.52 M/ L 4.63-6.08 L (test code = 761) HEMOGLOBIN (BEAKER) (test code = 13.1 GM/DL 13.7-17.5 L 410) HEMATOCRIT (BEAKER) (test code = 40.2 % 40.1-51.0 411) MEAN CORPUSCULAR VOLUME (BEAKER) 88.9 fL 79.0-92.2 (test code = 753) MEAN CORPUSCULAR HEMOGLOBIN 29.0 pg 25.7-32.2 (BEAKER) (test code = 751) MEAN CORPUSCULAR HEMOGLOBIN CONC 32.6 GM/DL 32.3-36.5 (BEAKER) (test code = 752) RED CELL DISTRIBUTION WIDTH 13.4 % 11.6-14.4 (BEAKER) (test code = 412) PLATELET COUNT (BEAKER) (test 226 K/CU MM 150-450 code = 756) MEAN PLATELET VOLUME (BEAKER) 10.3 fL 9.4-12.4 (test code = 754) NUCLEATED RED BLOOD CELLS 0 /100 WBC 0-0 (BEAKER) (test code = 413) NEUTROPHILS RELATIVE PERCENT 52 % (BEAKER) (test code = 429) LYMPHOCYTES RELATIVE PERCENT 32 % (BEAKER) (test code = 430) MONOCYTES RELATIVE PERCENT 10 % (BEAKER) (test code = 431) EOSINOPHILS RELATIVE PERCENT 5 % (BEAKER) (test code = 432) BASOPHILS RELATIVE PERCENT 1 % (BEAKER) (test code = 437) NEUTROPHILS ABSOLUTE COUNT 4.66 K/ L 1.78-5.38 (BEAKER) (test code = 670) LYMPHOCYTES ABSOLUTE COUNT 2.87 K/ L 1.32-3.57 (BEAKER) (test code = 414) MONOCYTES ABSOLUTE COUNT (BEAKER) 0.90 K/ L 0.30-0.82 H (test code = 415) EOSINOPHILS ABSOLUTE COUNT 0.46 K/ L 0.04-0.54 (BEAKER) (test code = 416) BASOPHILS ABSOLUTE COUNT (BEAKER) 0.09 K/ L 0.01-0.08 H (test code = 417) IMMATURE GRANULOCYTES-RELATIVE 0 % 0-1 PERCENT (BEAKER) (test code = 2801) [id number] 01:56:00 Test Item Value Reference Range Interpretation Comments PARTIAL THROMBOPLASTIN TIME 69.0 seconds 22.5-36.0 H (BEAKER) (test code = 760) POCT-GLUCOSE [id number] 22:07:00 Test Item Value Reference Range Interpretation Comments POC-GLUCOSE METER 185 mg/dL 70-110 H TESTED AT [facility] 6720 (BEAKER) (test code = BREEZY Moss [facility] 1538) [address] [id number] 18:43:00 Test Item Value Reference Range Interpretation Comments PARTIAL THROMBOPLASTIN TIME 45.2 seconds 22.5-36.0 H (BEAKER) (test code = 760) [id number] 16:12:00 Test Item Value Reference Range Interpretation Comments THYROID STIMULATING HORMONE 0.53 uIU/mL 0.35-4.94 (BEAKER) (test code = 772) RAD, CHEST, 1 VIEW, NON [id number] 15:33:00Reason for exam:->preopShould this be performed at the bedside?->YesFINAL REPORT EXAM: Frontal chest radiograph HISTORY PROVIDED: Preop COMPARISON: 11/12/2017 IMPRESSION:No focal consolidation, pneumothorax, or significant pleural fluid. The cardiomediastinal silhouette is within normal limits. No acute osseous abnormality. Degenerative changes of the spine are present. Signed: Clayton Banegas MDReport Verified Date/Time: 11/13/2017 15:33:28Reading Location: [facility] Mammo Reading Room Electronically signed by: CLAYTON BANEGAS on 11/03 03:33 [id number] 15:06:00 Test Item Value Reference Range Interpretation Comments PARTIAL THROMBOPLASTIN TIME 51.6 seconds 22.5-36.0 H (BEAKER) (test code = 760) PROTHROMBIN [id number] 15:05:00 Test Item Value Reference Range Interpretation Comments PROTIME (BEAKER) (test code = 13.4 seconds 11.7-14.7 759) INR (BEAKER) (test code = 370) 1.0 <=5.9 RECOMMENDED COUMADIN/WARFARIN INR THERAPY RANGESSTANDARD DOSE: 2.0 - 3.0 Includes: PROPHYLAXIS forvenous thrombosis, systemic embolization; TREATMENT for venous thrombosis and/or pulmonary embolus.HIGH RISK: Target INR is 2.5-3.5 for patients with mechanical heart valves.PLATELET AGGREGATION: DRUG EFFECT 2017-11-13 09:30:00 Test Item Value Reference Range Interpretation Comments STRONG ADP 76 % 70-94 RESULT(BEAKER) (test code = 2137) WEAK ADP RESULT(BEAKER) 73 % 60-91 (test code = 2135) ARACHADONIC ACID 16 % 63-89 L RESULT(BEAKER) (test code = 2138) PLATELET AGG DRUG Results with INTERPRETATION (BEAKER) arachidonic acid (test code = 2408) decreased. PLATELET AGG DRUG Decreased response to INTERPRETATION (BEAKER) arachidonic acid (test code = 459461) suggests aspirin-like effect. [id number] Deven Mei MD (BEAKER) (test code = (electronic 5731) signature) PLATELET COUNT AGG 243 K/CU MM 150-450 (BEAKER) (test code = 2656) Platelet aggregation results may be falsely low with platelet counts<100,000/CU MM.CREATININE, RANDOM [id number] 06:28:00 Test Item Value Reference Range Interpretation Comments CREATININE URINE (BEAKER) (test 114.6 mg/dL code = 375) Reference Range: No NormalsPROTEIN, RANDOM [id number] 06:28:00 Test Item Value Reference Range Interpretation Comments PROTEIN, URINE (BEAKER) (test code = 30 mg/dL 0-14 H 1569) PH, [id number] 05:47:00 Test Item Value Reference Range Interpretation Comments PH VENOUS (BEAKER) (test code = 701) 7.40 7.32-7.42 VITAMIN D, [id number] 04:52:00 Test Item Value Reference Range Interpretation Comments VITAMIN D 25-OH (BEAKER) (test 36.5 ng/mL 6.6-49.9 code = 2764) Effective 02/13/2017: Reference Range ChangeNew: 6.6-49.9 ng/mL Previous: 13.0-47.8 ng/mLRecommended Vitamin D Target Range: 30.0-40.0 ng/mLPTH, INTACT 2017-11-13 04:25:00 Test Item Value Reference Range Interpretation Comments PARATHYROID HORMONE INTACT 91.7 pg/mL 8.5-72.5 H (BEAKER) (test code = 577) [id number] 04:21:00 Test Item Value Reference Range Interpretation Comments PARTIAL THROMBOPLASTIN TIME 53.6 seconds 22.5-36.0 H (BEAKER) (test code = 760) URIC [id number] 04:20:00 Test Item Value Reference Range Interpretation Comments URIC ACID (BEAKER) (test code = 9.0 mg/dL 2.6-7.2 H 773) [id number] 04:20:00 Test Item Value Reference Range Interpretation Comments MAGNESIUM (BEAKER) (test code = 2.0 mg/dL 1.6-2.6 627) [id number] 04:20:00 Test Item Value Reference Range Interpretation Comments PHOSPHORUS (BEAKER) (test code = 3.1 mg/dL 2.3-4.7 604) BASIC METABOLIC [id number] 04:20:00 Test Item Value Reference Range Interpretation Comments SODIUM (BEAKER) 136 meq/L 136-145 (test code = 381) POTASSIUM (BEAKER) 3.4 meq/L 3.5-5.1 L (test code = 379) CHLORIDE (BEAKER) 97 meq/L 98-107 L (test code = 382) CO2 (BEAKER) (test 27 meq/L 22-29 code = 355) BLOOD UREA NITROGEN 25 mg/dL 7-21 H (BEAKER) (test code = 354) CREATININE (BEAKER) 1.30 mg/dL 0.57-1.25 H (test code = 358) GLUCOSE RANDOM 143 mg/dL 70-105 H (BEAKER) (test code = 652) CALCIUM (BEAKER) 10.0 mg/dL 8.4-10.2 (test code = 697) EGFR (BEAKER) (test 55 mL/min/1.73 ESTIMA TOR GFR IS code = 1092) sq m NOT ACCURATE CREATININE CLEARANCE IN PREDICTING GLOMERULAR FILTRATION RATE . ESTIMATED GFR I S NOT APPLICABLE FOR DIALYSIS PATIEN TS. CBC W/PLT COUNT & AUTO [id number] 04:06:00 Test Item Value Reference Range Interpretation Comments WHITE BLOOD CELL COUNT (BEAKER) 9.3 K/ L 3.5-10.5 (test code = 775) RED BLOOD CELL COUNT (BEAKER) 4.65 M/ L 4.63-6.08 (test code = 761) HEMOGLOBIN (BEAKER) (test code = 13.4 GM/DL 13.7-17.5 L 410) HEMATOCRIT (BEAKER) (test code = 41.6 % 40.1-51.0 411) MEAN CORPUSCULAR VOLUME (BEAKER) 89.5 fL 79.0-92.2 (test code = 753) MEAN CORPUSCULAR HEMOGLOBIN 28.8 pg 25.7-32.2 (BEAKER) (test code = 751) MEAN CORPUSCULAR HEMOGLOBIN CONC 32.2 GM/DL 32.3-36.5 L (BEAKER) (test code = 752) RED CELL DISTRIBUTION WIDTH 13.5 % 11.6-14.4 (BEAKER) (test code = 412) PLATELET COUNT (BEAKER) (test 234 K/CU MM 150-450 code = 756) MEAN PLATELET VOLUME (BEAKER) 10.1 fL 9.4-12.4 (test code = 754) NUCLEATED RED BLOOD CELLS 0 /100 WBC 0-0 (BEAKER) (test code = 413) NEUTROPHILS RELATIVE PERCENT 47 % (BEAKER) (test code = 429) LYMPHOCYTES RELATIVE PERCENT 38 % (BEAKER) (test code = 430) MONOCYTES RELATIVE PERCENT 9 % (BEAKER) (test code = 431) EOSINOPHILS RELATIVE PERCENT 4 % (BEAKER) (test code = 432) BASOPHILS RELATIVE PERCENT 1 % (BEAKER) (test code = 437) NEUTROPHILS ABSOLUTE COUNT 4.36 K/ L 1.78-5.38 (BEAKER) (test code = 670) LYMPHOCYTES ABSOLUTE COUNT 3.51 K/ L 1.32-3.57 (BEAKER) (test code = 414) MONOCYTES ABSOLUTE COUNT (BEAKER) 0.85 K/ L 0.30-0.82 H (test code = 415) EOSINOPHILS ABSOLUTE COUNT 0.40 K/ L 0.04-0.54 (BEAKER) (test code = 416) BASOPHILS ABSOLUTE COUNT (BEAKER) 0.09 K/ L 0.01-0.08 H (test code = 417) IMMATURE GRANULOCYTES-RELATIVE 1 % 0-1 PERCENT (BEAKER) (test code = 2801) [id number] 22:34:00 Test Item Value Reference Range Interpretation Comments PARTIAL THROMBOPLASTIN TIME 49.5 seconds 22.5-36.0 H (BEAKER) (test code = 760) POCT-GLUCOSE [id number] 21:55:00 Test Item Value Reference Range Interpretation Comments POC-GLUCOSE METER 179 mg/dL 70-110 H TESTED AT [facility] 6720 (BEAKER) (test code = ARTUROJOCE [place] 1538) [address] RAD, CHEST, 1 VIEW, NON [id number] 17:03:00Reason for exam:->sobShould this be performed at the bedside?->YesFINAL REPORT CHEST AP PORTABLE History provided: Shortness of breath Comparison studies: None Heart size normal. Lungs grossly clear and vascularity normal. IMPRESSION: Grossly clear chest. Signed: Eboni Johnson MDReport Verified Date/Time: 11/12/2017 17:03:31 Reading Location: [address] Radiology Reading Room [id number] 15:41:00 Test Item Value Reference Range Interpretation Comments PARTIAL THROMBOPLASTIN TIME 41.3 seconds 22.5-36.0 H (BEAKER) (test code = 760) POCT-GLUCOSE [id number] 11:50:00 Test Item Value Reference Range Interpretation Comments POC-GLUCOSE METER 218 mg/dL 70-110 H TESTED AT [facility] 6720 ([facility]) (test code = BREEZY [place] 1538) [address] PLATELET AGGREGATION: FUNCTION [id number] 10:14:00 Test Item Value Reference Range Interpretation Comments WEAK ADP 82 % 60-91 RESULT([facility]) (test code = 2135) PLATELET FUNCTION 60-100% indicates This is a corrected SCREEN INTERP normal platelet result. Pre vious ([facility]) (test function result was 50 -59% code = 2173) indicates mild platelet dysfunction on 11/11/2017 at 192 1 CDT [facility]-PATHOLOGIST- Deven Mei MD 4855 ([facility]) (electronic (test code = signature) 0795) PLATELET COUNT 283 K/CU MM 150-450 AGG (AKER) (test code = 2656) TROPONIN [id number] 08:02:00 Test Item Value Reference Range Interpretation Comments TROPONIN I ([facility]) (test code = 17.70 ng/mL 0.00-0.03 397) Troponin I (TnI) levels must be interpreted in the context of the presenting symptoms and the clinical findings. Elevated TnI levels indicate myocardial damage, but are not specific for ischemic heart disease. Elevated TnI levels are seen in patients with other cardiac conditions (including myocarditis and congestive heart failure), and slight TnI elevations occur in patients with other conditions, including sepsis, renal failure, acidosis, acute neurological disease, and persistent tachyarrhythmia.[id number] 07:55:00 Test Item Value Reference Range Interpretation Comments PARTIAL THROMBOPLASTIN TIME 42.7 seconds 22.5-36.0 H (BEAKER) (test code = 760) [id number] 07:55:00 Test Item Value Reference Range Interpretation Comments MAGNESIUM (BEAKER) (test code = 2.3 mg/dL 1.6-2.6 627) BASIC METABOLIC [id number] 07:55:00 Test Item Value Reference Range Interpretation Comments SODIUM (BEAKER) 139 meq/L 136-145 (test code = 381) POTASSIUM (BEAKER) 3.6 meq/L 3.5-5.1 (test code = 379) CHLORIDE (BEAKER) 97 meq/L 98-107 L (test code = 382) CO2 (BEAKER) (test 34 meq/L 22-29 H code = 355) BLOOD UREA NITROGEN 22 mg/dL 7-21 H (BEAKER) (test code = 354) CREATININE (BEAKER) 1.23 mg/dL 0.57-1.25 (test code = 358) GLUCOSE RANDOM 152 mg/dL 70-105 H (BEAKER) (test code = 652) CALCIUM (BEAKER) 10.5 mg/dL 8.4-10.2 H (test code = 697) EGFR (BEAKER) (test 59 mL/min/1.73 ESTIMA TOR GFR IS code = 1092) sq m NOT ACCURATE CREATININE CLEARANCE IN PREDICTING GLOMERULAR FILTRATION RATE . ESTIMATED GFR I S NOT APPLICABLE FOR DIALYSIS PATIEN TS. CBC W/PLT COUNT & AUTO [id number] 07:49:00 Test Item Value Reference Range Interpretation Comments WHITE BLOOD CELL COUNT (BEAKER) 8.9 K/ L 3.5-10.5 (test code = 775) RED BLOOD CELL COUNT (BEAKER) 4.52 M/ L 4.63-6.08 L (test code = 761) HEMOGLOBIN (BEAKER) (test code = 13.0 GM/DL 13.7-17.5 L 410) HEMATOCRIT (BEAKER) (test code = 39.5 % 40.1-51.0 L 411) MEAN CORPUSCULAR VOLUME (BEAKER) 87.4 fL 79.0-92.2 (test code = 753) MEAN CORPUSCULAR HEMOGLOBIN 28.8 pg 25.7-32.2 (BEAKER) (test code = 751) MEAN CORPUSCULAR HEMOGLOBIN CONC 32.9 GM/DL 32.3-36.5 (BEAKER) (test code = 752) RED CELL DISTRIBUTION WIDTH 13.7 % 11.6-14.4 (BEAKER) (test code = 412) PLATELET COUNT (BEAKER) (test 235 K/CU MM 150-450 code = 756) MEAN PLATELET VOLUME (BEAKER) 10.2 fL 9.4-12.4 (test code = 754) NUCLEATED RED BLOOD CELLS 0 /100 WBC 0-0 (BEAKER) (test code = 413) NEUTROPHILS RELATIVE PERCENT 52 % (BEAKER) (test code = 429) LYMPHOCYTES RELATIVE PERCENT 32 % (BEAKER) (test code = 430) MONOCYTES RELATIVE PERCENT 11 % (BEAKER) (test code = 431) EOSINOPHILS RELATIVE PERCENT 4 % (BEAKER) (test code = 432) BASOPHILS RELATIVE PERCENT 1 % (BEAKER) (test code = 437) NEUTROPHILS ABSOLUTE COUNT 4.64 K/ L 1.78-5.38 (BEAKER) (test code = 670) LYMPHOCYTES ABSOLUTE COUNT 2.79 K/ L 1.32-3.57 (BEAKER) (test code = 414) MONOCYTES ABSOLUTE COUNT (BEAKER) 0.96 K/ L 0.30-0.82 H (test code = 415) EOSINOPHILS ABSOLUTE COUNT 0.31 K/ L 0.04-0.54 (BEAKER) (test code = 416) BASOPHILS ABSOLUTE COUNT (BEAKER) 0.11 K/ L 0.01-0.08 H (test code = 417) IMMATURE GRANULOCYTES-RELATIVE 1 % 0-1 PERCENT (BEAKER) (test code = 2801) POCT-GLUCOSE [id number] 07:33:00 Test Item Value Reference Range Interpretation Comments POC-GLUCOSE METER 159 mg/dL 70-110 H TESTED AT [facility] 6720 (BEAKER) (test code = BREEZY Moss [place] 1538) [address] [id number] 00:57:00 Test Item Value Reference Range Interpretation Comments PARTIAL THROMBOPLASTIN TIME 47.6 seconds 22.5-36.0 H (BEAKER) (test code = 760) [id number] 00:40:00 Test Item Value Reference Range Interpretation Comments MAGNESIUM (BEAKER) 2.3 mg/dL 1.6-2.6 Specimen slightly (test code = 627) hemolyzed BASIC METABOLIC [id number] 00:40:00 Test Item Value Reference Range Interpretation Comments SODIUM (BEAKER) 140 meq/L 136-145 (test code = 381) POTASSIUM (BEAKER) 3.5 meq/L 3.5-5.1 Specimen slightly (test code = 379) hemolyzed CHLORIDE (BEAKER) 97 meq/L 98-107 L (test code = 382) CO2 (BEAKER) (test 31 meq/L 22-29 H code = 355) BLOOD UREA NITROGEN 25 mg/dL 7-21 H (BEAKER) (test code = 354) CREATININE (BEAKER) 1.32 mg/dL 0.57-1.25 H Specimen slightly (test code = 358) hemolyzed GLUCOSE RANDOM 112 mg/dL 70-105 H (BEAKER) (test code = 652) CALCIUM (BEAKER) 10.6 mg/dL 8.4-10.2 H (test code = 697) EGFR (BEAKER) (test 54 mL/min/1.73 ESTIMA TOR GFR IS code = 1092) sq m NOT ACCURATE CREATININE CLEARANCE IN PREDICTING GLOMERULAR FILTRATION RATE . ESTIMATED GFR I S NOT APPLICABLE FOR DIALYSIS PATIEN TS. POCT-GLUCOSE [id number] 21:57:00 Test Item Value Reference Range Interpretation Comments POC-GLUCOSE METER 162 mg/dL 70-110 H TESTED AT [facility] 6720 (BEAKER) (test code = [place] [address] [address] 1538) [address] HEMOGLOBIN [id number] 19:53:00 Test Item Value Reference Range Interpretation Comments HEMOGLOBIN A1C (BEAKER) (test code = 7.0 % 4.3-6.1 H 368) LIPID [id number] 18:10:00 Test Item Value Reference Range Interpretation Comments TRIGLYCERIDES (BEAKER) (test code = 399 mg/dL 540) CHOLESTEROL (BEAKER) (test code = 218 mg/dL 631) HDL CHOLESTEROL (BEAKER) (test code 20 mg/dL = 976) LDL CHOLESTEROL CALCULATED (BEAKER) 118 mg/dL (test code = 633) Triglyceride Reference Range: Low Risk <150 Borderline 150-199 High Risk 200-499 Very High Risk >=500Cholesterol Reference Range: Low Risk <200 Borderline 200-239 High Risk >240HDL Cholesterol Reference Range: Low Risk >=60 High Risk <40LDL Cholesterol Reference Range: Optimal <100 Near Optimal 100-129 Borderline 130-159 High 160-189 Very High >=190BASIC METABOLIC [id number] 18:10:00 Test Item Value Reference Range Interpretation Comments SODIUM (BEAKER) 138 meq/L 136-145 (test code = 381) POTASSIUM (BEAKER) 3.3 meq/L 3.5-5.1 L (test code = 379) CHLORIDE (BEAKER) 96 meq/L 98-107 L (test code = 382) CO2 (BEAKER) (test 32 meq/L 22-29 H code = 355) BLOOD UREA NITROGEN 24 mg/dL 7-21 H (BEAKER) (test code = 354) CREATININE (BEAKER) 1.27 mg/dL 0.57-1.25 H (test code = 358) GLUCOSE RANDOM 121 mg/dL 70-105 H (BEAKER) (test code = 652) CALCIUM (BEAKER) 10.4 mg/dL 8.4-10.2 H (test code = 697) EGFR (BEAKER) (test 56 mL/min/1.73 ESTIMA TOR GFR IS code = 1092) sq m NOT ACCURATE CREATININE CLEARANCE IN PREDICTING GLOMERULAR FILTRATION RATE . ESTIMATED GFR I S NOT APPLICABLE FOR DIALYSIS PATIEN TS. HEPATIC FUNCTION [id number] 18:10:00 Test Item Value Reference Range Interpretation Comments TOTAL PROTEIN (BEAKER) (test code = 7.5 gm/dL 6.0-8.3 770) ALBUMIN (BEAKER) (test code = 1145) 4.0 g/dL 3.5-5.0 BILIRUBIN TOTAL (BEAKER) (test code 0.4 mg/dL 0.2-1.2 = 377) BILIRUBIN DIRECT (BEAKER) (test 0.2 mg/dL 0.1-0.5 code = 706) ALKALINE PHOSPHATASE (BEAKER) (test 76 U/L 40-150 code = 346) AST (SGOT) (BEAKER) (test code = 56 U/L 5-34 H 353) ALT (SGPT) (BEAKER) (test code = 24 U/L 6-55 347) [id number] 17:56:00 Test Item Value Reference Range Interpretation Comments PROTIME (BEAKER) (test code = 13.2 seconds 11.7-14.7 759) INR (BEAKER) (test code = 370) 1.0 <=5.9 PARTIAL THROMBOPLASTIN TIME 34.9 seconds 22.5-36.0 (BEAKER) (test code = 760) RECOMMENDED COUMADIN/WARFARIN INR THERAPY RANGESSTANDARD DOSE: 2.0 - 3.0 Includes: PROPHYLAXIS forvenous thrombosis, systemic embolization; TREATMENT for venous thrombosis and/or pulmonary embolus.HIGH RISK: Target INR is 2.5-3.5 for patients with mechanical heart valves.CBC W/PLT COUNT & AUTO DIFFERENTIAL 2017-11-11 17:47:00 Test Item Value Reference Range Interpretation Comments WHITE BLOOD CELL COUNT (BEAKER) 10.3 K/ L 3.5-10.5 (test code = 775) RED BLOOD CELL COUNT (BEAKER) 4.50 M/ L 4.63-6.08 L (test code = 761) HEMOGLOBIN (BEAKER) (test code = 12.8 GM/DL 13.7-17.5 L 410) HEMATOCRIT (BEAKER) (test code = 39.7 % 40.1-51.0 L 411) MEAN CORPUSCULAR VOLUME (BEAKER) 88.2 fL 79.0-92.2 (test code = 753) MEAN CORPUSCULAR HEMOGLOBIN 28.4 pg 25.7-32.2 (BEAKER) (test code = 751) MEAN CORPUSCULAR HEMOGLOBIN CONC 32.2 GM/DL 32.3-36.5 L (BEAKER) (test code = 752) RED CELL DISTRIBUTION WIDTH 13.6 % 11.6-14.4 (BEAKER) (test code = 412) PLATELET COUNT (BEAKER) (test 280 K/CU MM 150-450 code = 756) MEAN PLATELET VOLUME (BEAKER) 10.0 fL 9.4-12.4 (test code = 754) NUCLEATED RED BLOOD CELLS 0 /100 WBC 0-0 (BEAKER) (test code = 413) NEUTROPHILS RELATIVE PERCENT 61 % (BEAKER) (test code = 429) LYMPHOCYTES RELATIVE PERCENT 26 % (BEAKER) (test code = 430) MONOCYTES RELATIVE PERCENT 10 % (BEAKER) (test code = 431) EOSINOPHILS RELATIVE PERCENT 3 % (BEAKER) (test code = 432) BASOPHILS RELATIVE PERCENT 1 % (BEAKER) (test code = 437) NEUTROPHILS ABSOLUTE COUNT 6.27 K/ L 1.78-5.38 H (BEAKER) (test code = 670) LYMPHOCYTES ABSOLUTE COUNT 2.66 K/ L 1.32-3.57 (BEAKER) (test code = 414) MONOCYTES ABSOLUTE COUNT (BEAKER) 1.02 K/ L 0.30-0.82 H (test code = 415) EOSINOPHILS ABSOLUTE COUNT 0.26 K/ L 0.04-0.54 (BEAKER) (test code = 416) BASOPHILS ABSOLUTE COUNT (BEAKER) 0.07 K/ L 0.01-0.08 (test code = 417) IMMATURE GRANULOCYTES-RELATIVE 1 % 0-1 PERCENT ([facility]) (test code = 2801) POCT-GLUCOSE [id number] 16:49:00 Test Item Value Reference Range Interpretation Comments POC-GLUCOSE METER 128 mg/dL 70-110 H TESTED AT [facility] 6720 ([facility]) (test code = BREEZY BUSCH 1538) [address]
[2020-08-11 03:49] LABS: Arterial Blood Carboxyhemoglob 1.9 % (0-1.5); Blood Gas Oxyhemoglobin 96.5 % (94-97); Blood O2 Saturation 99.4 % (92-98.5)
[2020-08-11] MEDS ORDERED: FUROSEMIDE 40 MG/4 ML VIAL ONE (03:51)
[2020-08-11] MEDS ORDERED: METOPROLOL TARTRATE 5 MG/5 ML INJ IV ONE ×2 (03:51→04:47)
--- NOTE | 2020-08-11 04:08 | EDPHYS ---
Physician Documentation [facility] Name: Ludwin Hsu Age: 69 yrs Sex: Male : 1950 Arrival Date: 08/11/2020 Time: 03:29 Bed 3 Private MD: ED Physician Richard Fontana HPI: 08/11 03:51 This 69 yrs old Male presents to ER via EMS with unknown complaint. pkl 03:51 The patient has shortness of breath at rest. Onset: The symptoms/episode began/occurred pkl just prior to arrival, 1.5 hour(s) ago. Associated signs and symptoms: Pertinent positives: diaphoresis. Historical: - Allergies: 03:25 NKA; rr5 - Home Meds: 03:25 albuterol sulfate 90 mcg/actuation Inhl HFAA 1 puff every 6 hours [Active]; aspirin 81 rr5 mg Oral chew 1 tab once daily [Active]; carvedilol 25 mg Oral tab 1 tab 2 times per day [Active]; furosemide 80 mg Oral tab 1 tab once daily [Active]; gabapentin 400 mg Oral cap 1 cap 3 times per day [Active]; glipizide 5 mg Oral tr24 2 tabs once daily [Active]; clopidogrel 75 mg Oral tab 1 tab once daily [Active]; metformin 1,000 mg Oral tab 1 tab 2 times per day [Active]; metolazone 5 mg Oral tab 1 tab once daily [Active]; nifedipine 60 mg Oral TbER 1 tab once daily [Active]; pantoprazole 40 mg Oral TbEC 1 tab once daily [Active]; trazodone 100 mg Oral tab 1 tab at bedtime [Active]; - PMHx: 03:25 arteriosclerosis; CHF; chronic back pain; COPD; Diabetes - NIDDM; Hypertension; kidney rr5 disease; malignant neoplasm of epidimyis; Myocardial infarction; Pancreatitis; PTSD; tinnitus; - PSHx: 03:25 heart bypass; rr5 - Immunization history:: Adult Immunizations up to date. - Social history:: Smoking status: Patient reports the use of cigarette tobacco products, smokes one pack cigarettes per day. ROS: 03:51 Eyes: Negative for injury, pain, redness, and discharge, ENT: Negative for injury, pkl pain, and discharge, Neck: Negative for injury, pain, and swelling. 03:51 Cardiovascular: Positive for palpitations. 03:51 Respiratory: Positive for shortness of breath, at rest. 03:51 Abdomen/GI: Negative for abdominal pain, nausea, vomiting, and diarrhea. 03:51 Back: Negative for acute changes. 03:51 : Negative for urinary symptoms. 03:51 MS/extremity: Positive for swelling, of the both legs. 03:51 Skin: Negative for rash. 03:51 Neuro: Negative for altered mental status, loss of consciousness. Exam: 03:51 Head/Face: Normocephalic, atraumatic. Eyes: Pupils equal round and reactive to light, pkl extra-ocular motions intact. Lids and lashes normal. Conjunctiva and sclera are non-icteric and not injected. Cornea within normal limits. Periorbital areas with no swelling, redness, or edema. ENT: Nares patent. No nasal discharge, no septal abnormalities noted. Tympanic membranes are normal and external auditory canals are clear. Oropharynx with no redness, swelling, or masses, exudates, or evidence of obstruction, uvula midline. Mucous membranes moist. Neck: Trachea midline, no thyromegaly or masses palpated, and no cervical lymphadenopathy. Supple, full range of motion without nuchal rigidity, or vertebral point tenderness. No Meningismus. Chest/axilla: Normal chest wall appearance and motion. Nontender with no deformity. No lesions are appreciated. 03:51 Cardiovascular: Rate: tachycardic, actual rate is 133 bpm, Rhythm: irregularly irregular. 03:51 ECG was reviewed by the Attending Physician. 03:51 Respiratory: moderate respiratory distress is noted, Respirations: labored breathing, Breath sounds: bronchial sounds, that are moderate, are scattered. 03:51 Abdomen/GI: Bowel sounds: normal, Palpation: abdomen is soft and non-tender, in all quadrants. 03:51 Back: Exam negative for acute changes. 03:51 : Exam negative for 03:51 Musculoskeletal/extremity: Extremities: grossly normal except: noted in the both legs: swelling. 03:51 Skin: Appearance: 03:51 Neuro: Orientation: is normal, Mentation: is normal, Cranial nerves: grossly normal, Motor: is normal. Vital Signs: 03:25 BP 158 / 74; Pulse 141; Resp 29; Temp 98.4; Pulse Ox 100% on 100% BiPAP; Weight 113.4 rr5 kg; Height 6 ft. 0 in. (182.88 cm); Pain 0/10; 04:07 BP 137 / 84; Pulse 137; Resp 23; Pulse Ox 96% on 40% BiPAP; rr5 05:00 BP 125 / 89; Pulse 115; Resp 24; Pulse Ox 99% on 40% BiPAP; rr5 06:00 BP 132 / 64; Pulse 96; Resp 17; Pulse Ox 97% on 40% BiPAP; rr5 07:00 BP 130 / 65; Pulse 78; Resp 11; Pulse Ox 97% on 40% BiPAP; bp 08:58 BP 158 / 107; Pulse 79; Resp 19; Pulse Ox 100% on 40% BiPAP; bp 10:06 BP 135 / 70; Pulse 75; Resp 17; Pulse Ox 95% on R/A; bp 11:03 BP 137 / 55; Pulse 79; Resp 17; Pulse Ox 94% ; bp 03:25 Body Mass Index 33.91 (113.40 kg, 182.88 cm) rr5 MDM: 03:34 Patient medically screened. pkl 04:05 Data reviewed: vital signs, nurses notes, lab test result(s), EKG, radiologic studies, pkl plain films. ED course: Talked to Jorge SEQUEIRA ) Admit to Dr. Yuen. 08/11 03:33 Order name: Basic Metabolic Panel rv 08/11 03:33 Order name: CBC with Diff; Complete Time: 08:07 rv 08/11 03:33 Order name: LFT's; Complete Time: 04:40 rv 08/11 03:33 Order name: Magnesium; Complete Time: 04:40 rv 08/11 03:33 Order name: NT PRO-BNP; Complete Time: 04:40 rv 08/11 03:33 Order name: PT-INR; Complete Time: 04:40 rv 08/11 03:33 Order name: Troponin (emerg Dept Use Only); Complete Time: 04:40 rv 08/11 03:34 Order name: Basic Metabolic Panel; Complete Time: 04:40 EDMS 08/11 03:35 Order name: D-Dimer pkl 08/11 03:35 Order name: ABG; Complete Time: 04:08 pkl 08/11 03:43 Order name: D-Dimer; Complete Time: 04:40 EDMS 08/11 04:30 Order name: Manual Differential; Complete Time: 08:07 EDMS 08/11 05:15 Order name: SARS-COV-2 RT PCR; Complete Time: 08:07 EDMS 08/11 10:04 Order name: Procalcitonin EDMS 08/11 10:04 Order name: Basic Metabolic Panel EDMS 08/11 10:04 Order name: CBC with Automated Diff EDMS 08/11 10:04 Order name: Lactate EDMS 08/11 10:04 Order name: Magnesium EDMS 08/11 10:04 Order name: NT PRO-BNP EDMS 08/11 10:08 Order name: Comprehensive Metabolic Panel EDMS 08/11 10:08 Order name: Comprehensive Metabolic Panel EDMS 08/11 10:08 Order name: Magnesium EDMS 08/11 10:08 Order name: Magnesium EDMS 08/11 10:08 Order name: Potassium EDMS 08/11 10:08 Order name: Potassium EDMS 08/11 10:08 Order name: CBC with Automated Diff EDMS 08/11 10:08 Order name: CBC with Automated Diff EDMS 08/11 10:08 Order name: NT PRO-BNP EDMS 08/11 03:33 Order name: XRAY Chest (1 view) rv 08/11 03:33 Order name: EKG; Complete Time: 03:34 rv 08/11 03:33 Order name: Cardiac monitoring; Complete Time: 03:38 rv 08/11 03:33 Order name: EKG - Nurse/Tech; Complete Time: 03:38 rv 08/11 03:33 Order name: IV Saline Lock; Complete Time: 03:38 rv 08/11 03:33 Order name: Labs collected and sent; Complete Time: 03:38 rv 08/11 03:33 Order name: O2 Per Protocol; Complete Time: 03:38 rv 08/11 03:33 Order name: O2 Sat Monitoring; Complete Time: 03:38 rv 08/11 03:53 Order name: Labs - recollect needed: all of the labs; Complete Time: 04:05 em 08/11 04:39 Order name: CT Chest For PE Angio pkl 08/11 10:06 Order name: Diet Ada 1800 Kojo; Complete Time: 10:06 bp 08/11 10:08 Order name: CONS Physician Consult EDMS 08/11 10:08 Order name: Heart Healthy EDMS 08/11 10:08 Order name: NT PRO-BNP EDMS 08/11 10:08 Order name: Phosphorus EDMS 08/11 10:08 Order name: Phosphorus EDMS 08/11 10:08 Order name: Troponin I EDMS 08/11 10:08 Order name: Troponin I EDMS 08/11 10:08 Order name: Troponin I EDMS 08/11 10:09 Order name: Echo with Doppler EDMS Administered Medications: 03:35 Drug: Lopressor 5 mg Route: IVP; Site: left antecubital; rr5 04:35 Follow up: Response: No adverse reaction rr5 03:37 Drug: Lasix (furosemide) 40 mg Route: IVP; Site: left antecubital; rr5 04:44 Follow up: Response: No adverse reaction rr5 04:35 Drug: Lopressor 5 mg {Note: HR 137 BP 137/84 RR 23.} Route: IVP; Site: right forearm; rr5 05:30 Follow up: Response: No adverse reaction; Other; HR decreased rr5 Disposition: 08/11/20 04:08 Hospitalization ordered by Topher Yuen for Inpatient Admission. Preliminary diagnosis is Acute dyspnea. Congestive heart failure. Atrail fibrillation with RVR. - Bed requested for [facility] ER HOLD. - Status is Inpatient Admission. bp - Condition is Stable. - Problem is new. - Symptoms have improved. Signatures: Dispatcher [employer] EDMS Richard Fontana MD MD pkl Munoz, Edgar, RN RN Uri Yañez, RN RN Jose Randolph, RN RN Sebastian Avilez RN RN rr5 Corrections: (The following items were deleted from the chart) 03:43 03:35 D-Dimer ordered. EDAR EDMS 04:33 03:42 CORONAVIRUS+MR.LAB.BRZ ordered. EDMS EDMS 10:08 10:04 Echo with Doppler ordered. EDAR EDMS 11:05 04:08 Hospitalization Ordered by Topher Yuen MD for Inpatient Admission. Preliminary bp diagnosis is Acute dyspnea. Congestive heart failure. Atrail fibrillation with RVR. Bed requested for Telemetry/MedSurg (Inpatient). Status is Inpatient Admission. Condition is Stable. Problem is new. Symptoms have improved. pkkristen 12:45 11:05 08/11/2020 04:08 Hospitalization Ordered by Topher Yuen MD for Inpatient bp Admission. Preliminary diagnosis is Acute dyspnea. Congestive heart failure. Atrail fibrillation with RVR. Bed requested for [facility] ER HOLD. Status is Inpatient Admission. Condition is Stable. Problem is new. Symptoms have improved. bp
--- NOTE | 2020-08-11 04:08 | ER ---
Nurse's Notes [facility] Name: Ludwin Hsu Age: 69 yrs Sex: Male : 1950 Arrival Date: 08/11/2020 Time: 03:29 Bed 3 Private MD: Diagnosis: Acute dyspnea. Congestive heart failure. Atrail fibrillation with RVR Presentation: 08/11 03:25 Chief complaint: EMS states: complaints of Shortness of breath started 1 1/2 hour ago rr5 feels congested ronchi, diminish lower lobe on auscultation, denies chest pain. SPO2 71% on RA hooked to CPAP went up to 100%. HR 130's-150's SVT adenosine 12mgx2 given/IV. SBP initially 180 then went down to 90/60 mmHg. Coronavirus screen: shortness of breath, Client presents with at least one sign or symptom that may indicate coronavirus-19. Standard/surgical mask placed on the client. Provider contacted for isolation considerations. Ebola Screen: Patient negative for fever greater than or equal to 101.5 degrees Fahrenheit, and additional compatible Ebola Virus Disease symptoms Patient denies exposure to infectious person. Patient denies travel to an Ebola-affected area in the 21 days before illness onset. Initial Sepsis Screen: Does the patient meet any 2 criteria? RR > 20 per min. HR > 90 bpm. Yes Does the patient have a suspected source of infection? Yes: Productive cough/pneumonia. Risk Assessment: Do you want to hurt yourself or someone else? Patient reports no desire to harm self or others. Onset of symptoms was August 11, 2020. 03:25 Method Of Arrival: EMS: [facility] rr5 03:25 Acuity: NGUYEN 2 rr5 Historical: - Allergies: 03:25 NKA; rr5 - Home Meds: 03:25 albuterol sulfate 90 mcg/actuation Inhl HFAA 1 puff every 6 hours [Active]; aspirin 81 rr5 mg Oral chew 1 tab once daily [Active]; carvedilol 25 mg Oral tab 1 tab 2 times per day [Active]; furosemide 80 mg Oral tab 1 tab once daily [Active]; gabapentin 400 mg Oral cap 1 cap 3 times per day [Active]; glipizide 5 mg Oral tr24 2 tabs once daily [Active]; clopidogrel 75 mg Oral tab 1 tab once daily [Active]; metformin 1,000 mg Oral tab 1 tab 2 times per day [Active]; metolazone 5 mg Oral tab 1 tab once daily [Active]; nifedipine 60 mg Oral TbER 1 tab once daily [Active]; pantoprazole 40 mg Oral TbEC 1 tab once daily [Active]; trazodone 100 mg Oral tab 1 tab at bedtime [Active]; - PMHx: 03:25 arteriosclerosis; CHF; chronic back pain; COPD; Diabetes - NIDDM; Hypertension; kidney rr5 disease; malignant neoplasm of epidimyis; Myocardial infarction; Pancreatitis; PTSD; tinnitus; - PSHx: 03:25 heart bypass; rr5 - Immunization history:: Adult Immunizations up to date. - Social history:: Smoking status: Patient reports the use of cigarette tobacco products, smokes one pack cigarettes per day. Screenin:40 Abuse screen: Denies threats or abuse. Denies injuries from another. Nutritional rr5 screening: No deficits noted. Tuberculosis screening: No symptoms or risk factors identified. Fall Risk IV access (20 points). Total [place] Fall Scale indicates No Risk (0-24 pts). Assessment: 03:25 General: Appears in no apparent distress. comfortable, Behavior is calm, cooperative, rr5 appropriate for age. 03:25 Pain: Denies pain. Neuro: Level of Consciousness is awake, alert, obeys commands, rr5 Oriented to person, place, time. Cardiovascular: Capillary refill < 3 seconds Patient's skin is warm and dry. Respiratory: Reports shortness of breath Airway is patent Respiratory effort is even, unlabored, Respiratory pattern is regular, symmetrical, tachypnea. GI: No signs and/or symptoms were reported involving the gastrointestinal system. : No signs and/or symptoms were reported regarding the genitourinary system. EENT: No signs and/or symptoms were reported regarding the EENT system. Derm: Skin is intact, Skin temperature is warm. Musculoskeletal: Capillary refill < 3 seconds. 03:40 Reassessment: code sepsis announced. rr5 03:45 Reassessment: ABG result respiratory acidosis, decreased FIO2 to 80%. rr5 04:05 Respiratory: Patient placed on BiPAP: Inspiratory Pressure: 18 Expiratory (EPAP) rr5 Pressure: 12 FiO2%: 40 Respiratory Rate: 15. 04:36 Reassessment: Patient appears in no apparent distress at this time. Patient is alert, rr5 oriented x 3, equal unlabored respirations, skin warm/dry/pink. second dose of Lopressor given. 05:20 Reassessment: Patient appears in no apparent distress at this time. Patient and/or rr5 family updated on plan of care and expected duration. Pain level reassessed. Patient is alert, oriented x 3, equal unlabored respirations, skin warm/dry/pink. 06:00 Reassessment: Patient appears in no apparent distress at this time. Patient is alert, rr5 oriented x 3, equal unlabored respirations, skin warm/dry/pink. Patient states feeling better. Patient states symptoms have improved. 07:00 Reassessment: RECD REPORT FROM AMIRAH MITCHELL. 69YO WM P/W SOB. BIPAP IN PLACE. ADMIT bp INITIATED. 08:58 Reassessment: No changes from previously documented assessment. Patient and/or family bp updated on plan of care and expected duration. Pain level reassessed. ADMIT IN PROCESS. AWAITING ADMIT ORDERS. 09:00 Reassessment: PT LEAVING AMA, REFUSING FURTHER TREATMENT AND ADMIT. PT AOx3, SIGNED AMA bp PAPER. PT COUNSELED TO REMAIN BY STAFF BUT REFUSING. DR YUEN CONTACTED. 09:29 Reassessment: PT FAMILY REFUSING TO TRANSPORT PT. PT NOW DECIDING TO REMAIN. bp 10:06 Reassessment: Patient appears in no apparent distress at this time. No changes from bp previously documented assessment. PT RESTING QUIETLY ON ROOM AIR. ADMIT ORDERS PENDING. 11:03 Reassessment: PT ON ER HOLD, SEE [facility]. bp 12:30 Reassessment: PT LEAVING AMA, REFUSING BLOOD DRAW AND ADMIT. PT AOx4, AMBULATORY WITH bp STEADY GAIT. PT URGED TO RETURN IF S/S WORSEN OR RETURN. Vital Signs: 03:25 BP 158 / 74; Pulse 141; Resp 29; Temp 98.4; Pulse Ox 100% on 100% BiPAP; Weight 113.4 rr5 kg; Height 6 ft. 0 in. (182.88 cm); Pain 0/10; 04:07 BP 137 / 84; Pulse 137; Resp 23; Pulse Ox 96% on 40% BiPAP; rr5 05:00 BP 125 / 89; Pulse 115; Resp 24; Pulse Ox 99% on 40% BiPAP; rr5 06:00 BP 132 / 64; Pulse 96; Resp 17; Pulse Ox 97% on 40% BiPAP; rr5 07:00 BP 130 / 65; Pulse 78; Resp 11; Pulse Ox 97% on 40% BiPAP; bp 08:58 BP 158 / 107; Pulse 79; Resp 19; Pulse Ox 100% on 40% BiPAP; bp 10:06 BP 135 / 70; Pulse 75; Resp 17; Pulse Ox 95% on R/A; bp 11:03 BP 137 / 55; Pulse 79; Resp 17; Pulse Ox 94% ; bp 03:25 Body Mass Index 33.91 (113.40 kg, 182.88 cm) rr5 ED Course: 03:29 Patient arrived in ED. rv 03:30 Arm band placed on. rr5 03:33 Richard Fontana MD is Attending Physician. pkl 03:35 ABG drawn. by RT staff, on BIPAP. rr5 03:37 Sebastian Watts, RN is Primary Nurse. rr5 03:40 Maintain EMS IV. Dressing intact. Good blood return noted. Site clean \T\ dry. Gauge \T\ rr 5 site: g20 left AC. 03:41 Patient has correct armband on for positive identification. Bed in low position. Call rr5 light in reach. Side rails up X2. evp of products & co founder on. Pulse ox on. NIBP on. 03:41 Warm blanket given. rr5 03:43 EKG done, by ED staff, reviewed by Richard Fontana MD. rr5 03:46 Triage completed. rr5 03:50 Inserted saline lock: 20 gauge in right forearm, using aseptic technique. ,using rr5 aseptic technique. inserted by millie. 04:06 Topher Yuen MD is Hospitalizing Provider. pkl 04:10 XRAY Chest (1 view) In Process Unspecified. EDMS 04:31 Notified ED physician of a critical lab result(s). ddimer 1014. rr5 04:39 COVID swab sent to lab. rr5 05:32 CT Chest For PE Angio In Process Unspecified. EDMS 07:11 Primary Nurse role handed off by Sebastian Watts, RN bp 07:11 Uri Tony, STEPHEN is Primary Nurse. bp 11:05 No provider procedures requiring assistance completed. Patient admitted, IV remains in bp place. Administered Medications: 03:35 Drug: Lopressor 5 mg Route: IVP; Site: left antecubital; rr5 04:35 Follow up: Response: No adverse reaction rr5 03:37 Drug: Lasix (furosemide) 40 mg Route: IVP; Site: left antecubital; rr5 04:44 Follow up: Response: No adverse reaction rr5 04:35 Drug: Lopressor 5 mg {Note: HR 137 BP 137/84 RR 23.} Route: IVP; Site: right forearm; rr5 05:30 Follow up: Response: No adverse reaction; Other; HR decreased rr5 Intake: 06:27 post lasix output rr5 Output: 06:27 Urine: 1000ml (Voided); Total: 1000ml. rr5 06:27 post lasix output rr5 Outcome: 04:08 Decision to Hospitalize by Provider. pkl 11:04 Admitted to ER Hold. Please see [facility] for further documentation. bp 11:04 Condition: stable 11:04 Instructed on the need for admit. 12:45 Patient left the ED. bp Signatures: Dispatcher [employer] EDMS Richard Fontana MD MD pkl Uri Tony RN RN bp Jose Serrano RN RN rv Sebastian Watts, STEPHEN RN rr5 Corrections: (The following items were deleted from the chart) 07:41 07:00 BP 130 / 65; Pulse 78bpm; Resp 11bpm; Pulse Ox 96%; bp bp 12:41 12:30 Reassessment: now bp bp
[2020-08-11 04:21] LABS: Absolute Lymphocytes (CBC) 0.9 K/uL (0.7-4.9); Basophils % 0.5 % (0-1.3); Hematocrit 39.3 % (39.6-49.0); Lymphocytes % 5.8 % (15.3-44.8); MPV 9.3 fL (7.6-11.3); RBC Red Blood Cell Count 4.48 M/uL (4.33-5.43)
[2020-08-11 04:24] LABS: Protime INR 1.11
[2020-08-11 04:39] LABS: ALT/SGPT 17 U/L (12-78); AST/SGOT 11 U/L (15-37); Albumin 3.3 g/dL (3.4-5.0); Alkaline Phosphatase 87 U/L (45-117); BUN Blood Urea Nitrogen 29 mg/dL (7-18); Bicarbonate 29 mmol/L (21-32); Bilirubin Direct < 0.1 mg/dL (0-0.2); Bilirubin Total 0.3 mg/dL (0.2-1.0); Glucose Level 195 mg/dL (74-106); Magnesium 1.9 mg/dL (1.8-2.4); NT PRO-BNP 8289 pg/mL (<125); Potassium 4.7 mmol/L (3.5-5.1); Sodium Level 145 mmol/L (136-145); Troponin (Emerg Dept Use Only) 0.06 ng/mL (0.0-0.045)
[2020-08-11 05:08] LABS: Blood Morphology Comment NOT SEEN (NOT SEEN); Platelet Estimate ADEQ
--- NOTE | 2020-08-11 08:48 | EKG ---
Test Date: 2020-08-11 Test Time: 03:28:58 Historical Guide: RV MEASUREMENT RESULTS: Intervals: Rate: 133 [place]: QRSD: 120 QT: 294 QTc: 437 [place]: P: WA: QRS: -72 T: 101 INTERPRETIVE STATEMENTS: Atrial fibrillation with rapid ventricular response with premature ventricular or aberrantly conducted complexes Left axis deviation Left ventricular hypertrophy with QRS widening T wave abnormality, consider lateral ischemia or digitalis effect Abnormal ECG Compared to ECG 02/16/2018 21:49:31 Ventricular premature complex(es) now present Left ventricular hypertrophy now present T-wave abnormality now present Sinus rhythm no longer present Myocardial infarct finding no longer present ST (T wave) deviation no longer present Possible ischemia still present Electronically Signed On 08-11-20 08:48:16 CDT by Jose Nunn
[2020-08-11] MEDS ORDERED: ACETAMINOPHEN 500 MG TAB PO PRN (10:04)
[2020-08-11] MEDS ORDERED: ONDANSETRON 4 MG/2 ML VIAL IV PRN (10:04)
[2020-08-11 11:02] VITALS: BMI 48.5
--- NOTE | 2020-08-11 11:19 | RAD REPORT ---
EXAM DESCRIPTION: CT - Chest For Pe Angio - 08/11/2020 6:48 am CLINICAL HISTORY: 69 years Male DYSPNEA COMPARISON: None Available TECHNIQUE: CT angiography of the chest was performed with axial dataset after bolus intravenous inje ction of intravenous contrast.All CT data was transferred to a 3D workstation for multiplanar reforma tion and 3D and MIP reconstruction. This exam was performed according to our departmental dose-optimi zation program, which includes automated exposure control, adjustment of the mA and/or kV according t o patient size and/or use of iterative reconstruction technique. FINDINGS: Limitation: Study is degraded by motion artifact. Pulmonary arteries: Limited evaluation of the segmental and subsegmental pulmonary artery branches du e to motion artifact, however no obvious large filling defect in the central vasculature to suggest c entral PE. Aorta: No evidence of aortic dissection or aneurysm. Mediastinum: Unremarkable. No adenopathy. Heart: Heart is normal in size. No pericardial effusion. Coronary artery calcifications and/or sten t. Lungs / airways: Dependent atelectasis in the right lung base. Airways are patent. Pleura: Small bilateral pleural effusions. No pneumothorax. Osseous: Multilevel degenerative changes. Status post median sternotomy. Soft tissues: Unremarkable. Visualized upper abdomen: Unremarkable. IMPRESSION: 1. Limited evaluation of the segmental and subsegmental pulmonary artery branches due to motion artifact, however no obvious large filling defect in the central pulmonary vasculature to sug gest central PE. 2. Small bilateral pleural effusions with compressive atelectasis of the right. Electronically signed by: Ravi Vazquez MD 08/11/2020 5:56 AM CDT Due to temporary technical issues with the PACS/Fluency reporting system, reports are being signed by the in house radiologist without review as a courtesy to ensure prompt reporting. The interpreting r adiologist is fully responsible for the content of the report.
--- NOTE | 2020-08-11 11:20 | RAD REPORT ---
EXAM DESCRIPTION: [facility] Single View08/11/2020 4:10 am CLINICAL HISTORY: The patient is 69 years old and is Male; CHEST PAIN TECHNIQUE: Single view of the chest. COMPARISON: No relevant prior studies available. FINDINGS: Lungs: Minimal bibasilar subsegmental atelectasis. No pulmonary vascular congestion. Pleural space: Unremarkable. No pneumothorax. Heart: Status post CABG surgery. The cardiac silhouette is enlarged versus artifact of AP techni que. Mediastinum: Unremarkable. Bones/joints: Sternal closure wires. No acute fracture visualized. Upper abdomen: No free air in the visualized upper abdomen. IMPRESSION: Minimal bibasilar subsegmental atelectasis. Electronically signed by: Ashley Carter MD 08/11/2020 4:24 AM CDT Due to temporary technical issues with the PACS/Fluency reporting system, reports are being signed by the in house radiologist without review as a courtesy to ensure prompt reporting. The interpreting r adiologist is fully responsible for the content of the report.
[2020-08-11 12:23] VITALS: O2SAT 93
[2020-08-11 12:24] VITALS: BP 137/65
[2020-08-11] MEDS ORDERED: FUROSEMIDE 40 MG/4 ML VIAL IV SCH (17:00)
[2020-08-11] MEDS ORDERED: POTASSIUM CL SA 10 MEQ TAB PO SCH (21:00)
[2020-08-12] MEDS ORDERED: ASPIRIN EC 81 MG TAB PO SCH (09:00)
[2020-08-12] MEDS ORDERED: ENOXAPARIN 40 MG/0.4 ML SQ SCH (09:00)
[2020-08-12] MEDS ORDERED: METOPROLOL TAR 50 MG TAB PO SCH (09:00)
[2020-08-12] MEDS ORDERED: VALSARTAN 80 MG TAB PO SCH (09:00)
--- NOTE | 2020-08-17 22:34 | P.SSS ---
Patient History Date of Service: 08/11/20 Reason for admission: SVT History of Present Illness: Patient is a 69-year-old gentleman who came into the hospital with SVT. Patient was given adenosine was chemically cardioverted. Patient was to be worked up in the emergency room. Patient was in a normal sinus rhythm at this time. Blood pressure was on the low side. Decision was made to admit the patient to the hospital for further evaluation. Allergies No Known Allergies Allergy (Verified 02/17/18 03:00) Home Medications: Clopidogrel Bisulfate [Plavix*] 75 mg PO DAILY #30 tablet 02/24/16 Furosemide [Lasix*] 80 mg PO DAILY #30 tab 02/24/16 Gabapentin [Neurontin*] 1,200 mg PO TID 12/02/16 metOLazone [Metolazone] 5 mg PO DAILY PRN 30 Days #30 tablet 05/04/17 Aspirin 81 mg PO DAILY 11/10/17 NIFEdipine [Nifedipine ER] 60 mg PO DAILY 11/10/17 Trazodone HCl 100 mg PO BEDTIME PRN 11/10/17 carvediloL [Coreg*] 12.5 mg PO BID 11/10/17 glipiZIDE [Glucotrol] 10 mg PO BID 11/10/17 Irbesartan [Avapro*] 150 mg PO DAILY #30 tab 02/17/18 Metformin ER [Glucophage ER*] 1,000 mg PO BID 02/17/18 - Past Medical/Surgical History Has patient received pneumonia vaccine in the past: Yes Diabetic: Yes -: Hypertension -: Diabetes mellitus type 2 -: Posttraumatic stress disorder -: Anxiety -: Hepatitis-C -: Hyperlipidemia -: CAD, stent placement x2 -: Obstructive sleep apnea -: Obesity -: Diabetic neuropathy -: History pancreatitis -: COPD, tobacco abuse -: 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 - Family History Father -: Other (see notes) Notes: CHF Mother -: Cancer Notes: breast cancer Sister -: Cancer Notes: colon cancer Brother -: Cancer Notes: throat cancer - Social History Smoking Status: Unknown if ever smoked Alcohol use: No CD- Drugs: No Caffeine use: Yes Review of Systems 10-point ROS is otherwise unremarkable Physical Examination - Vital Signs Temperature: 99 F Blood Pressure: 137/65 Pulse: 76 Respirations: 15 Pulse Ox (%): 96 - Physical Exam General: Alert, In no apparent distress, Oriented x3 HEENT: Atraumatic, PERRLA, Mucous membr. moist/pink, EOMI, Sclerae nonicteric Neck: Supple, 2+ carotid pulse no bruit, No LAD, Without JVD or thyroid abnormality Respiratory: Clear to auscultation bilaterally, Normal air movement Cardiovascular: Regular rate/rhythm, Normal S1 S2, No murmurs Gastrointestinal: Normal bowel sounds, Soft and benign, Non-distended, No tenderness Musculoskeletal: No clubbing, No swelling, No tenderness Integumentary: No rashes Neurological: Normal gait, Normal speech, Normal strength at 5/5 x4 extr, Normal tone, Normal affect Lymphatics: No axilla or inguinal lymphadenopathy - Diagnosis (Problem(s)) (1) SVT (supraventricular tachycardia) Status: Acute (2) CHF (congestive heart failure) Onset Date: 12/03/16 Status: Chronic Qualifiers: Qualified Code(s): I50.9 - Heart failure, unspecified (3) COPD (chronic obstructive pulmonary disease) Status: Chronic Qualifiers: COPD type: chronic bronchitis Chronic bronchitis type: unspecified Qualified Code(s): J42 - Unspecified chronic bronchitis (4) Coronary artery disease Status: Chronic Qualifiers: Coronary Disease-Associated Artery/Lesion type: unspecified vessel or lesion type [place] vs. transplanted heart: unspecified whether [place] or transplanted heart Associated angina: with unspecified angina Qualified Code(s): I25.119 - Atherosclerotic heart disease of [place] coronary artery with unspecified angina pectoris (5) Diabetes mellitus Onset Date: 12/03/16 Status: Chronic Treatment Summary: Patient decided to leave against medical advice. - Disposition Disposition: AMA-LEFT AGAINST MEDICAL ADVIC Condition: GOOD Patient Discharge Instructions: Patient left against medical advice Diet: AHA Activity: Fall precautions Time Spent Managing Pts Care (In Minutes): 35
[2020-08-17 22:37] VITALS: TEMP 99
== END 2020-08-11 12:45 | disposition left against medical advice (07) | DRG 310 ==
LOC: ER 03:26 → ERHOLD 10:04
PROVIDERS: ADMIT Hospitalist; ATTEND Hospitalist
PROC: 5A09357 Assistance with Respiratory Ventilation, Less than 24 Consecutive Hours, Continuous Positive Airway Pressure (ICD-10-PCS; principal; 2020-08-11)
DX: I47.1 Supraventricular tachycardia (principal); I11.0 Hypertensive heart disease with heart failure; I50.9 Heart failure, unspecified; I48.91 Unspecified atrial fibrillation; G89.29 Other chronic pain; M54.9 Dorsalgia, unspecified; E11.40 Type 2 diabetes mellitus with diabetic neuropathy, unspecified; J42 Unspecified chronic bronchitis; E78.5 Hyperlipidemia, unspecified; I25.119 Atherosclerotic heart disease of native coronary artery with unspecified angina pectoris; F17.210 Nicotine dependence, cigarettes, uncomplicated; I25.2 Old myocardial infarction; Z53.29 Procedure and treatment not carried out because of patient's decision for other reasons; Z95.1 Presence of aortocoronary bypass graft; Z79.82 Long term (current) use of aspirin; Z79.02 Long term (current) use of antithrombotics/antiplatelets; Z20.822 Contact with and (suspected) exposure to COVID-19; Z79.84 Long term (current) use of oral hypoglycemic drugs; Z79.899 Other long term (current) drug therapy; Z95.5 Presence of coronary angioplasty implant and graft
CPT/HCPCS: 36415; 71045; 71275; 80048; 80076; 82805; 83735; 83880; 84484; 85025; 85379; 85610; 93005; 94660; 99285; J1940; Q9967; U0003

== ENCOUNTER 2020-08-22 10:25 | Emergency (ER) | payer OTHER ==
--- OUTSIDE RECORDS SUMMARY | 2020-08-22 10:31 | XMS REPORT | Continuity of Care Document ---
:1950 Author Organization [facility] t Address [address] [place] [address] Care Team Providers Name Role Phone Asha Veloz Attending Clinician Eloisa LYMAN Attending Clinician Unavailable JUAN FRANCISCO SÁNCHEZ Attending Clinician Unavailable Eloisa LYMAN Admitting Clinician Unavailable JUAN FRANCISCO SÁNCHEZ Admitting Clinician Unavailable Payers Payer Name Policy Type Policy Number Effective Date Expiration Date S ource Problems Condition Condition Condition Status Onset Resolution Last Treating Co mments Source Name Details Category Date Date Treatment Clinician Date Acute Acute Disease Active [facility] hypoxemic 01-22 [facility] - respirator respirator 00:00: Me dical y failure y failure 00 Cent er Acute Acute Disease Active [facility] respirator respirator 01-22 Katerine kes - y failure y failure 00:00: Medi oralia 00 Center S/P CABG S/P CABG Disease [facility] ([facility] (coronary 11-19 [facility] - artery artery 00:00: Medical bypass bypass 00 Center graft) graft) NSTEMI NSTEMI Disease Active [facility] (non-ST (non-ST 11-19 [facility] - elevated elevated 00:00: Medica l myocardial myocardial 00 Ce nter infarction infarction ) ) Essential Essential Disease Active [facility] hypertensi hypertensi 11-19 kes - on on 00:00: Medical 00 Center Acute on Acute on Disease [facility] - diastolic diastolic 00:00: Medi oralia (congestiv (congestiv 00 Ce nter e) heart e) heart failure failure Acute Acute Disease Active [facility] respirator respirator 11-14 Katerine kes - y y 00:00: Medical insufficie insufficie 00 Ce nter ncy ncy Other Other Disease Active [facility] shock shock 11-14 [facility] - 00:00: Medical 00 Center CAD CAD Disease Active [facility] (coronary (coronary 11-11 [place] [facility] - artery artery 00:00: Medical disease) disease) 00 Center CKD CKD Disease Active Overview: [facility] St (chronic (chronic 05-06 Baseline [facility] - kidney kidney 00:00: Creatinin Medical disease) disease) 00 e ~ 1-1.[address] stage 2, stage 2, GFR 60-89 GFR 60-89 ml/min ml/min Coronary Coronary Disease Active Overview: [facility] artery artery 05-06 PCI [facility] - disease disease 00:00: 2016- on Medica l 00 plavix / Center ACB x 3: IBRAHIM-> LAD, SVG-> OM1, SVG-> OM2 Diabetes Diabetes Disease Active Overview: [facility] mellitus mellitus 05-06 oral meds [facility] - 00:00: including Medical 00 metformin [facility] Hypertensi Hypertensi Disease Active [facility] on on 05-06 [facility] - 00:00: Medical 00 [place] NORRIS on NORRIS on Disease Active Overview: [facility] CPAP CPAP claims [facility] complian Medical e with Center CPAP Current Current Disease Active [facility] smoker smoker [facility] Allergies, Adverse Reactions, Alerts Allergy Allergy Status Severity Reaction(s) Onset Inactive Treating Comm ents Source Name Type Date Date Clinician No Known DA Active [facility] Allergie 08-12 s 00:00: [address] Social History Social Habit Start Date Stop Date Quantity Comments Source Sex Assigned At [facility] Cigarettes smoked 2018-01-22 2018-01-22 [facility] - current (pack per 00:00:00 00:00:00 Medical Center day) - Reported Cigarette 2018-01-22 2018-01-[address] [facility] - pack-years 00:00:00 00:00:[address] [facility] Tobacco use and 2018-01-22 2018-01-[address] [facility] Katerine kes - exposure 00:00:00 00:00:[address] [facility] Alcohol intake 2018-01-22 2018-01-[address] [facility] Holly es - 00:00:00 00:00:00 non-drinker of Medical Ce nter alcohol (finding) Smoking Status Start Date Stop Date Source Current every day smoker 2018-01-22 00:00:00 [facility] Medications Ordered Filled Start Stop Current Ordering Indication Dosage Frequency Signature Comments Components Source Medication Medication Date Date Medication? Clinician (SIG) Name Name carvedilol Yes 12.5mg Take 12.[address] [facility] (COREG) 25 9-20 mg by [facility] - MG tablet 10:15: mouth 2 Medic al 53 (two) Center times daily with breakfast and dinner . clopidogrel 2017- Yes 75mg QD Take [address] [address] (PLAVIX) 75 9-20 by mouth Luke s - mg tablet 10:15: daily. Medica l 53 Center aspirin 81 2017- Yes 81mg QD Take [address] MG EC 9-20 by mouth [facility] - tablet 10:15: daily. Medical 53 Center esomeprazol 2017-0 Yes 20mg QD Take [address] e (NEXIUM) 9-20 by mouth [facility] - 20 MG 10:15: daily. Medical capsule 53 Center gabapentin 0 Yes 1200mg [id number] Take 1,[address] (NEURONTIN) 9-20 [id number] mg by L ukes - 600 MG [...] Center night as needed for Sleep. metOLazone 2017- Yes 5mg QD Take [address] (ZAROXOLYN) 9-20 by mouth [facility] - 5 MG tablet 10:15: daily. Medi oralia 53 Center furosemide Yes Resume [facility] (LASIX) 80 7-17 taking as [facility] - MG tablet 00:00: you were Medi oralia 00 prior to Center admission. polyethylen Yes Use daily [facility] e glycol 7-17 per [facility] - (GLYCOLAX) 00:00: package Medi oralia 17 gram 00 instruct Center packet ns. Is over the counter. Procedures This patient has no known procedures. Plan of Care Planned Activity Planned Date Details Comments Source Future Scheduled 2020-01-05 INFLUENZA VACCINE (#1) [facility] - Test 00:00:00 [code = INFLUENZA Medical Ce nter VACCINE (#1)] Future Scheduled 2018-07-[address] Katerine kes - Test 00:00:00 measurement Medical Center (procedure) [code = 73191177] Future Scheduled 2014-11-[address] [facility] - Test 00:00:00 WELLNESS (YEAR 2 or Medical Center FIRST YEAR if no IPPE) [code = MEDICARE ANNUAL WELLNESS (YEAR 2 or FIRST YEAR if no IPPE)] Future Scheduled 2013 PNEUMOCOCCAL 65+ YRS [facility] - Test 00:00:00 (1 of 1 - Medical Center [id number] PCV13) [code = PNEUMOCOCCAL 65+ YRS (1 of 1 - [id number] PCV13)] Future Scheduled 1958 DIABETIC EYE EXAM [facility] - Test 00:00:00 [code = DIABETIC EYE Medical Center EXAM] Future Scheduled [address] [facility] - Test 00:00:00 examination Medical Center (regime/therapy) [code = 542869877] Future Scheduled 1958 Urine screening for [facility] - Test 00:00:00 protein (procedure) Medical Center [code = 691982908] Future Scheduled [address] [facility] - Test 00:00:00 malignant neoplasm of Medica l Collins colon (procedure) [code = 709432215] Encounters Start End Encounter Admission Attending Care Care Encounter Source Date/Time Date/Time Type Type Clinicians Facility Department ID 2020-08-11 2020-08-11 Emergency Artemio TNJOSE [id number] 14:46:00 22:30:00 Samantha [place] [id number] [place] [id number] [place] [id number] Results Test Description Test Time Test Comments Results Result Comments Source GLUCOSE BEDSIDE TESTING 2020-08-13 12:07:00 Test Item Value Reference Range Interpretation Comme nts GLUCOSE BEDSIDE TESTING (test code = GLUBED) 137 MG/DL 60-99 H GLYCOSYLATED HEMOGLOBIN [id number] 11:19:00 Test Item Value Reference Range Interpretation Comments GLYCOSYLATED 6.0 % 4.8-5.9 H Any condition t hat HEMOGLOBIN (HA1C) shortens e rythocyte (test code = survival or dec reasesmean GLYHGB) erythrocyte age (e.g., recovery from a cute blood loss,hemolytic anemia) will falsely lo wer HGBA1c resultsregardle ss of the method used. H GBA1c results from rajni lipscomb HbSS, HbCC, and HbSc must be interpreted with cautiongiven th e pathological pr ocesses, including anemia,increase d red cell turnover, trans fusion requirements, thatadversely i mpact HGBA1c as a mar ker of long-term glycemiccontrol . Alternative for ms of testing such as fructosaminesho uld be considered for these patients. MEAN BLOOD GLUCOSE 126 MG/DL 70-110 H (test code = MBG) BASIC METABOLIC [id number] 07:59:00 Test Item Value Reference Range Interpretation Comments SODIUM (test code = 141 MMOL/L 137-145 N NA) POTASSIUM (test code = 3.3 MMOL/L 3.5-5.1 L K) CHLORIDE (test code = 101 MMOL/L 98-107 N CL) CARBON DIOXIDE (test 33 MMOL/L 22-30 H code = CO2) ANION GAP (test code = 10 MMOL/L 14-24 L GAP) GLUCOSE (test code = 125 MG/DL 74-106 H GLU) BLOOD UREA NITROGEN 32 MG/DL 9-20 H (test code = BUN) GLOMERULAR FILTRATION 60 Report ing units: RATE (test code = GFR) ml/mi n/1.73 m2 (Modified MDRD Formula)Referen ce Range: > or = 6 0 ml/min/1.73 m2 CREATININE (test code 1.20 MG/DL 0.66-1.25 N = CREAT) CALCIUM (test code = 9.8 MG/DL 8.4-10.2 N CA) PATIENT REFUSED; PER ANTONIO Soto (STEPHEN)LIPID PROFILE (CORONARY RISK)2020-08-13 07:59:00 Test Item Value Reference Range Interpretation Comments TRIGLYCERIDES (test 153 MG/DL TRIGLYCE RIDES code = TRIG) REFERENCE RANGE:Normal: < 150 mg/dLBorderline High: 150-199 mg/dLHi gh: 200-499 mg/dLVe ry High: >=500 mg/ dL CHOLESTEROL (test code 145 MG/DL <200 = CHOL) HDL CHOLESTEROL (test 25 MG/DL 40-59 L code = HDL) LIPOPROTEIN LDL (test 95 MG/DL 0-99 N code = LDL) OPTIMAL........ .<100 mg/dLNEAR OPTIMAL/ABOVE OPTIMAL........ .100-12 9 mg/dL BORDERLINE HIGH.........13 0-159 mg/dL HIGH.........16 0-189 mg/dL VERY HIGH...... ...>/= 190 mg/dL PATIENT REFUSED; PER ANTONIO Soto (STEPHEN)BASIC METABOLIC [id number] 07:50:00 Test Item Value Reference Range Interpretation Comments SODIUM (test code = 141 MMOL/L 137-145 N NA) POTASSIUM (test code = 3.3 MMOL/L 3.5-5.1 L K) CHLORIDE (test code = 101 MMOL/L 98-107 N CL) CARBON DIOXIDE (test 33 MMOL/L 22-30 H code = CO2) ANION GAP (test code = 10 MMOL/L 14-24 L GAP) GLUCOSE (test code = 125 MG/DL 74-106 H GLU) BLOOD UREA NITROGEN 32 MG/DL 9-20 H (test code = BUN) GLOMERULAR FILTRATION 60 Report ing units: RATE (test code = GFR) ml/mi n/1.73 m2 (Modified MDRD Formula)Referen ce Range: > or = 6 0 ml/min/1.73 m2 CREATININE (test code 1.20 MG/DL 0.66-1.25 N = CREAT) CALCIUM (test code = 9.8 MG/DL 8.4-10.2 N CA) PATIENT REFUSED; PER ANTONIO MOORE)LIPID PROFILE (CORONARY RISK)2020-08-13 07:50:00 Test Item Value Reference Range Interpretation Comments TRIGLYCERIDES (test 153 MG/DL TRIGLYCE RIDES code = TRIG) REFERENCE RANGE:Normal: < 150 mg/dLBorderline High: 150-199 mg/dLHi gh: 200-499 mg/dLVe ry High: >=500 mg/ dL CHOLESTEROL (test code 145 MG/DL <200 = CHOL) HDL CHOLESTEROL (test 25 MG/DL 40-59 L code = HDL) LIPOPROTEIN LDL (test MG/DL 0-99 code = LDL) PATIENT REFUSED; PER ANTONIO Soto (STEPHEN)PROTHROMBIN [id number] 07:46:00 Test Item Value Reference Range Interpretation Comments PROTHROMBIN TIME PATIENT 13.3 9.5-12.7 H (test code = PTP) INTERNATIONAL NORMAL RATIO 1.2 0.86-1.14 H T he INR is to be used (test code = INR) only for m onitoring oral anticoagulantth erapy. INDICATION INR VALUE ------- ------- -----1. Prophylaxis, d eep venous thrombos is, including high risk surgery. 2.0 - 3.0 2. Prophylaxis, de ep venous thrombos is, hip surgery, tr eatment for deep venous thrombosis or pulmonary preve ntion of systemic embolism in pat ients with valvula r heart disease, atrial fibrillation, tissue heart va lve, or acute myocardia l infarction. 2.0 - 3.0 3. Mechanical pros thesis heart valves, recurrent syste megan embolism. 3.0 - 4.5 PATIENT REFUSED; PER:ANTONIO MOORE)PTT [id number] 07:46:00 Test Item Value Reference Range Interpretation Comments PTT ACTIVATED (test code = APTT) 39.0 SECONDS 25.1-36.5 H PATIENT REFUSED; PER:ANTONIO Soto (RN)CBC W/AUTO [id number] 07:35:00 Test Item Value Reference Range Interpretation Comments WHITE BLOOD CELL (test code = 11.6 K/MM3 3.8-9.8 H WBC) RED BLOOD CELL (test code = 4.58 M/MM3 3.95-5.67 N RBC) HEMOGLOBIN (test code = HGB) 13.2 G/DL 12.4-16.7 N HEMATOCRIT (test code = HCT) 41.0 % 35.9-49.5 N MEAN CELL VOLUME (test code = 90 fL 81.7-96.1 N MCV) MEAN CELL HGB (test code = MCH) 28.8 pg 27.6-33.2 N MEAN CELL HGB CONCETRATION 32.2 % 32.9-35.5 L (test code = MCHC) RED CELL DISTRIBUTION WIDTH 14.0 % 12.1-15.2 N (test code = RDW) PLATELET COUNT (test code = 239 K/MM3 129-368 N PLT) MEAN PLATELET VOLUME (test code 10.9 fl 7.4-10.4 H = MPV) NEUTROPHIL % (test code = NT%) 57.9 % 43-75 N IMMATURE GRANULOCYTE % (test 0.4 % 0.0-2.0 N code = IG%) LYMPHOCYTE % (test code = LY%) 30.9 % 14-44 N MONOCYTE % (test code = MO%) 8.5 % 4-13 N EOSINOPHIL % (test code = EO%) 1.6 % 0-6 N BASOPHIL % (test code = BA%) 0.7 % 0-2 N NUCLEATED RBC % (test code = 0.0 % 0-1.0 N NRBC%) NEUTROPHIL # (test code = NT#) 6.71 K/mm3 2.0-7.6 N IMMATURE GRANULOCYTE # (test 0.05 x10 3/uL 0-0.03 H code = IG#) LYMPHOCYTE # (test code = LY#) 3.58 K/mm3 1.0-3.8 N MONOCYTE # (test code = MO#) 0.99 K/mm3 0.1-0.8 H EOSINOPHIL # (test code = EO#) 0.18 K/mm3 0.0-0.2 N BASOPHIL # (test code = BA#) 0.08 K/mm3 0.0-0.2 N NUCLEATED RBC # (test code = 0.00 K/mm3 0.0-0.1 N NRBC#) PATIENT REFUSED; PER ANTONIO Soto (RN)GLUCOSE BEDSIDE [id number] 04:56:00 Test Item Value Reference Range Interpretation Comments GLUCOSE BEDSIDE TESTING (test code 123 MG/DL 60-99 H = GLUBED) GLUCOSE BEDSIDE [id number] 18:50:00 Test Item Value Reference Range Interpretation Comments GLUCOSE BEDSIDE TESTING (test code 221 MG/DL 60-99 H = GLUBED) GLUCOSE BEDSIDE [id number] 15:43:00 Test Item Value Reference Range Interpretation Comments GLUCOSE BEDSIDE TESTING (test code 126 MG/DL 60-99 H = GLUBED) GLUCOSE BEDSIDE [id number] 11:35:00 Test Item Value Reference Range Interpretation Comments GLUCOSE BEDSIDE TESTING (test code 161 MG/DL 60-99 H = GLUBED) GLYCOSYLATED HEMOGLOBIN [id number] 10:30:00 Test Item Value Reference Range Interpretation Comments GLYCOSYLATED 6.0 % 4.8-5.9 H Any condition t hat HEMOGLOBIN (HA1C) shortens e rythocyte (test code = survival or dec reasesmean GLYHGB) erythrocyte age (e.g., recovery from a cute blood loss,hemolytic anemia) will falsely lo wer HGBA1c resultsregardle ss of the method used. H GBA1c results from rajni lipscomb HbSS, HbCC, and HbSc must be interpreted with cautiongiven th e pathological pr ocesses, including anemia,increase d red cell turnover, trans fusion requirements, thatadversely i mpact HGBA1c as a mar ker of long-term glycemiccontrol . Alternative for ms of testing such as fructosaminesho uld be considered for these patients. MEAN BLOOD GLUCOSE 126 MG/DL 70-110 H (test code = MBG) COMPREHENSIVE METABOLIC [id number] 09:27:00 Test Item Value Reference Range Interpretation Comments SODIUM (test code 141 MMOL/L 137-145 N = NA) POTASSIUM (test 3.8 MMOL/L 3.5-5.1 N code = K) CHLORIDE (test 102 MMOL/L 98-107 N code = CL) CARBON DIOXIDE 31 MMOL/L 22-30 H (test code = CO2) GLUCOSE (test 165 MG/DL 74-106 H code = GLU) BLOOD UREA 31 MG/DL 9-20 H NITROGEN (test code = BUN) GLOMERULAR > 60 Reporting units : FILTRATION RATE ml/min/1.73 m2 (Modified (test code = GFR) MDRD Formu la)Reference Range: > or = 6 0 ml/min/1.73 m2 CREATININE (test 1.10 MG/DL 0.66-1.25 N code = CREAT) TOTAL PROTEIN 7.6 G/DL 6.2-7.6 N [facility] Clinical Diagnostic (test code = has made us radha re of PROT) newinformation regarding the potential i nterference ofEltrombopag (a bone marrow stimulan t used to treatthrombocyt onmenia and aplastic anemia ) with specific assays on the Vitros 5600 of which Total Protein is one of thoseassays per formed in our lab.Interfe rence testing perform ed at Ortho determined that Eltrombopag does interfere with Vitros Total Protein asfollowsEltrom bopag Interference fo r Vitros Product Total Protein:======= Eltrombopag Max Observed A vg. BiasConcentrati on Concentration Concentration== ==== 2.5 mg/dl 6.0 g/dl +0.41 +0.34 3.5 mg/dl 6.0 g/dl +0.50 +0.45 5 mg/dl 6.0 g/dl +0.73 +0.65 2.5 mg/dl 8.0 g/dl +0.44 +0.41 3.5 mg/dl 8.0 g/dl +0.55 +0.52 5 mg/dl 8.0 g/dl +0.86 +0.77 ALBUMIN (test 4.1 G/DL 3.5-5.0 N code = ALB) CALCIUM (test 10.3 MG/DL 8.4-10.2 H code = CA) BILIRUBIN TOTAL 0.6 MG/DL 0.2-1.3 N Eltrombopag Interference (test code = for Vitros Prod uct TBil, BILT) BuBc: Assa y Eltrombopag Analyte/ Max Observed Avg. Bias Concentrati on Concentration Concentration== ====TBil 7mg/dl T Wayne/ 1.2mg/dl +0.23 mg.dl +0.20mg/dlBuBc 3.5mg/dl Bu/0.8mg/dl +0.25mg/dl +0 .24mg/dlBuBc 7 mg/dl Bu/14.2mg/dl +0.38mg/dl +0.25mg/dlBuBc 5mg/dl Bc/0mg/dl +0.25mg/dl +0 .15mg/dlBuBc 3.5mg/dl Bc/2.8mg/dl +0.25mg/dl +0.23mg/dl SGOT/AST (test 23 UNITS/L 17-59 N code = AST) SGPT/ALT (test 15 UNITS/L <50 code = ALT) ALKALINE 87 UNITS/L 38-126 N PHOSPHATASE (test code = ALKP) [id number] 09:27:00 Test Item Value Reference Range Interpretation Comments TROPONIN-I (test code = TROPI) 0.089 NG/ML 0.012-0.033 H T4 [id number] 09:07:00 Test Item Value Reference Range Interpretation Comments T4 FREE (test code = T4F) 1.5 NG/DL 0.78-2.19 N Specimen comments: please run from tsh previously drawnCOMPREHENSIVE METABOLIC [id number] 08:51:00 Test Item Value Reference Range Interpretation Comments SODIUM (test code 141 MMOL/L 137-145 N = NA) POTASSIUM (test 3.8 MMOL/L 3.5-5.1 N code = K) CHLORIDE (test 102 MMOL/L 98-107 N code = CL) CARBON DIOXIDE 31 MMOL/L 22-30 H (test code = CO2) GLUCOSE (test 165 MG/DL 74-106 H code = GLU) BLOOD UREA 31 MG/DL 9-20 H NITROGEN (test code = BUN) GLOMERULAR > 60 Reporting units : FILTRATION RATE ml/min/1.73 m2 (Modified (test code = GFR) MDRD Formu la)Reference Range: > or = 6 0 ml/min/1.73 m2 CREATININE (test 1.10 MG/DL 0.66-1.25 N code = CREAT) TOTAL PROTEIN 7.6 G/DL 6.2-7.6 N [facility] Clinical Diagnostic (test code = has made us radha re of PROT) newinformation regarding the potential i nterference ofEltrombopag (a bone marrow stimulan t used to treatthrombocyt onmenia and aplastic anemia ) with specific assays on the Vitros 5600 of which Total Protein is one of thoseassays per formed in our lab.Interfe rence testing perform ed at Ortho determined that Eltrombopag does interfere with Vitros Total Protein asfollowsEltrom bopag Interference fo r Vitros Product Total Protein:======= Eltrombopag Max Observed A vg. BiasConcentrati on Concentration Concentration== ==== 2.5 mg/dl 6.0 g/dl +0.41 +0.34 3.5 mg/dl 6.0 g/dl +0.50 +0.45 5 mg/dl 6.0 g/dl +0.73 +0.65 2.5 mg/dl 8.0 g/dl +0.44 +0.41 3.5 mg/dl 8.0 g/dl +0.55 +0.52 5 mg/dl 8.0 g/dl +0.86 +0.77 ALBUMIN (test 4.1 G/DL 3.5-5.0 N code = ALB) CALCIUM (test 10.3 MG/DL 8.4-10.2 H code = CA) BILIRUBIN TOTAL 0.6 MG/DL 0.2-1.3 N Eltrombopag Interference (test code = for Vitros Prod uct TBil, BILT) BuBc: Assa y Eltrombopag Analyte/ Max Observed Avg. Bias Concentrati on Concentration Concentration== ====TBil 7mg/dl T Wayne/ 1.2mg/dl +0.23 mg.dl +0.20mg/dlBuBc 3.5mg/dl Bu/0.8mg/dl +0.25mg/dl +0 .24mg/dlBuBc 7 mg/dl Bu/14.2mg/dl +0.38mg/dl +0.25mg/dlBuBc 5mg/dl Bc/0mg/dl +0.25mg/dl +0 .15mg/dlBuBc 3.5mg/dl Bc/2.8mg/dl +0.25mg/dl +0.23mg/dl SGOT/AST (test 23 UNITS/L 17-59 N code = AST) SGPT/ALT (test 15 UNITS/L <50 code = ALT) ALKALINE 87 UNITS/L 38-126 N PHOSPHATASE (test code = ALKP) [id number] 08:51:00 Test Item Value Reference Range Interpretation Comments TROPONIN-I (test code = TROPI) NG/ML 0.0-0.045 CBC W/AUTO [id number] 08:36:00 Test Item Value Reference Range Interpretation Comments WHITE BLOOD CELL (test code = 9.9 K/MM3 3.8-9.8 H WBC) RED BLOOD CELL (test code = 4.53 M/MM3 3.95-5.67 N RBC) HEMOGLOBIN (test code = HGB) 12.7 G/DL 12.4-16.7 N HEMATOCRIT (test code = HCT) 40.3 % 35.9-49.5 N MEAN CELL VOLUME (test code = 89 fL 81.7-96.1 N MCV) MEAN CELL HGB (test code = MCH) 28.0 pg 27.6-33.2 N MEAN CELL HGB CONCETRATION 31.5 % 32.9-35.5 L (test code = MCHC) RED CELL DISTRIBUTION WIDTH 13.9 % 12.1-15.2 N (test code = RDW) PLATELET COUNT (test code = 226 K/MM3 129-368 N PLT) MEAN PLATELET VOLUME (test code 10.8 fl 7.4-10.4 H = MPV) NEUTROPHIL % (test code = NT%) 82.3 % 43-75 H IMMATURE GRANULOCYTE % (test 1.0 % 0.0-2.0 N code = IG%) LYMPHOCYTE % (test code = LY%) 10.8 % 14-44 L MONOCYTE % (test code = MO%) 5.7 % 4-13 N EOSINOPHIL % (test code = EO%) 0.0 % 0-6 N BASOPHIL % (test code = BA%) 0.2 % 0-2 N NUCLEATED RBC % (test code = 0.0 % 0-1.0 N NRBC%) NEUTROPHIL # (test code = NT#) 8.12 K/mm3 2.0-7.6 H IMMATURE GRANULOCYTE # (test 0.10 x10 3/uL 0-0.03 H code = IG#) LYMPHOCYTE # (test code = LY#) 1.06 K/mm3 1.0-3.8 N MONOCYTE # (test code = MO#) 0.56 K/mm3 0.1-0.8 N EOSINOPHIL # (test code = EO#) 0.00 K/mm3 0.0-0.2 N BASOPHIL # (test code = BA#) 0.02 K/mm3 0.0-0.2 N NUCLEATED RBC # (test code = 0.00 K/mm3 0.0-0.1 N NRBC#) GLUCOSE BEDSIDE [id number] 07:36:00 Test Item Value Reference Range Interpretation Comments GLUCOSE BEDSIDE TESTING (test code 178 MG/DL 60-99 H = GLUBED) URINALYSIS [id number] 04:39:00 Test Item Value Reference Range Interpretation Comments UA COLOR (test code = YELLOW YELLOW COLU) UA APPEARANCE (test code CLEAR CLEAR = APPU) UA GLUCOSE DIPSTICK (test NORMAL MG/DL NORMAL code = DGLUU) UA BILIRUBIN DIPSTICK NEGATIVE MG/DL NEGATIVE (test code = BILU) UA KETONE DIPSTICK (test NEGATIVE MG/DL NEGATIVE code = KETU) UA SPECIFIC GRAVITY (test 1.010 1.003-1.030 N code = SGU) UA BLOOD DIPSTICK (test NEGATIVE German/mm3 NEGATIVE code = PAM) UA PH DIPSTICK (test code 5.0 5.0-9.0 N = HALEIGH) UA PROTEIN DIPSTICK (test NEGATIVE MG/DL NEGATIVE code = PROU) UA UROBILINIOGEN DIPSTICK NORMAL MG/DL NORMAL (test code = URO) UA NITRITE DIPSTICK (test NEGATIVE NEGATIVE code = NEENA) UA LEUKOCYTE ESTERASE NEGATIVE /mm3 NEGATIVE DIPSTICK (test code = LEUU) UA CULTURE NEEDED? (test NEGATIVE, NO CULTURE Culture Chk code = UACULT) Criteria SOURCE OF URINE: CLEAN CATCHURINALYSIS [id number] 04:35:00 Test Item Value Reference Range Interpretation Comments UA COLOR (test code = COLU) YELLOW YELLOW UA APPEARANCE (test code = CLEAR CLEAR APPU) UA GLUCOSE DIPSTICK (test NORMAL MG/DL NORMAL code = DGLUU) UA BILIRUBIN DIPSTICK (test NEGATIVE MG/DL NEGATIVE code = BILU) UA KETONE DIPSTICK (test NEGATIVE MG/DL NEGATIVE code = KETU) UA SPECIFIC GRAVITY (test 1.010 1.003-1.030 N code = SGU) UA BLOOD DIPSTICK (test code NEGATIVE German/mm3 NEGATIVE = PAM) UA PH DIPSTICK (test code = 5.0 5.0-9.0 N HALEIGH) UA PROTEIN DIPSTICK (test NEGATIVE MG/DL NEGATIVE code = PROU) UA UROBILINIOGEN DIPSTICK NORMAL MG/DL NORMAL (test code = URO) UA NITRITE DIPSTICK (test NEGATIVE NEGATIVE code = NEENA) UA LEUKOCYTE ESTERASE NEGATIVE /mm3 NEGATIVE DIPSTICK (test code = LEUU) UA CULTURE NEEDED? (test Criteria Culture Chk code = UACULT) SOURCE OF URINE: CLEAN CATCHTSH REFLEX TO [id number] 04:06:00 Test Item Value Reference Range Interpretation Comments TSH REFLEX TO FT4 0.391 MIU/L 0.65-4.68 L Please be aware that (test code = bias results fo r TSH TSHREFLEX) may occur forpa tient who are taking Biotin supplements. [id number] 04:06:00 Test Item Value Reference Range Interpretation Comments MAGNESIUM (test code = MAG) 1.8 MG/DL 1.6-2.3 N LIPOPROTEIN LDL [id number] 04:06:00 Test Item Value Reference Range Interpretation Comments LIPOPROTEIN LDL DIRECT 92 mg/dL 100-129 L ===== (test code = LDLDIR) ======= ==Refe rence Interval: mg/dL mmol/L--------- ------ ------ ------ --Optimal <100 <2.6Near/abov e optimal 100-129 2.6-3.3Borderli ne High 130-159 3.4-4.1High 16 0-189 4.1-4.9Ve ry High >=190 >=4.9========= This LDL result is a direct measurement.=== ====== [id number] 04:06:00 Test Item Value Reference Range Interpretation Comments TROPONIN-I (test code = TROPI) 0.075 NG/ML 0.012-0.033 H [id number] 03:48:00 Test Item Value Reference Range Interpretation Comments MAGNESIUM (test code = MAG) 1.8 MG/DL 1.6-2.3 N LIPOPROTEIN LDL [id number] 03:48:00 Test Item Value Reference Range Interpretation Comments LIPOPROTEIN LDL DIRECT (test code = mg/dL 100-129 LDLDIR) [id number] 03:48:00 Test Item Value Reference Range Interpretation Comments TROPONIN-I (test code = TROPI) 0.075 NG/ML 0.012-0.033 H [id number] 03:38:00 Test Item Value Reference Range Interpretation Comments MAGNESIUM (test code = MAG) 1.8 MG/DL 1.6-2.3 N [id number] 03:38:00 Test Item Value Reference Range Interpretation Comments TROPONIN-I (test code = TROPI) NG/ML 0.0-0.045 GLUCOSE BEDSIDE [id number] 23:56:00 Test Item Value Reference Range Interpretation Comments GLUCOSE BEDSIDE TESTING (test code 211 MG/DL 60-99 H = GLUBED) HEMOGLOBIN [id number] 09:40:00 Test Item Value Reference Range Interpretation Comments HEMOGLOBIN A1C (BEAKER) (test code = 6.1 % 4.3-6.1 368) RAD, CHEST, 1 VIEW, NON [id number] 09:36:00Reason for exam:->sobShould this be performed at the bedside?->YesFINAL REPORT Chest one view compared to January 22 Discussion: There is cardiac prominence and interstitial congestion. There is linear opacity in both lower lungs. No effusionor pneumothorax. Signed: Denice Tran Verified Date/Time: 01/23/2018 09:36:57 Reading Location: [facility] Radiology Reading Room POCT-GLUCOSE [id number] 08:04:00 Test Item Value Reference Range Interpretation Comments POC-GLUCOSE METER 176 mg/dL 70-110 H TESTED AT [facility] 6720 (BEAKER) (test code = [place] 1538) [address] [id number] 06:49:00 Test Item Value Reference Range Interpretation Comments MAGNESIUM (BEAKER) 2.1 mg/dL 1.6-2.6 Specimen slightly (test code = 627) hemolyzed BASIC METABOLIC [id number] 06:49:00 Test Item Value Reference Range Interpretation [...] PATIEN TS. CBC W/PLT COUNT & AUTO [id number] 06:30:00 Test Item Value Reference Range Interpretation [...] PERCENT (BEAKER) (test code = 2801) POCT-GLUCOSE [id number] 22:19:00 Test Item Value Reference Range Interpretation Comments POC-GLUCOSE METER 235 mg/dL 70-110 H TESTED AT [facility] 6720 ([facility]) (test code = [place] 1538) [address] TROPONIN [id number] 17:45:00 Test Item Value Reference Range Interpretation Comments TROPONIN I (BEAKER) (test code = 0.53 ng/mL 0.00-0.03 [facility]) Troponin I (TnI) levels must be interpreted [...] 0-100 H (BEAKER) (test code = 700) [id number] 17:35:00 Test Item Value Reference Range Interpretation Comments MAGNESIUM (BEAKER) (test code = 1.9 mg/dL 1.6-2.6 627) COMPREHENSIVE METABOLIC [id number] 17:35:00 Test Item Value Reference Range Interpretation [...] NOT APPLICABLE FOR DIALYSIS PATIEN TS. LIPID [id number] 17:35:00 Test Item Value Reference Range Interpretation Comments TRIGLYCERIDES (BEAKER) (test code = 91 mg/dL 540) CHOLESTEROL (BEAKER) (test code = 127 mg/dL 631) HDL CHOLESTEROL (BEAKER) (test code 26 mg/dL = 976) LDL CHOLESTEROL CALCULATED (BEAKER) 83 mg/dL (test code = 633) Triglyceride Reference Range: Low Risk <150 Borderline 150-199 High Risk 200-499 Very High Risk >=500Cholesterol Reference Range: Low Risk <200 Borderline 200-239 High Risk >240HDL Cholesterol Reference Range: Low Risk >=60 High Risk <40LDL Cholesterol Reference Range: Optimal <100 Near Optimal 100-129 Borderline 130-159 High 160-189 Very High >=190LACTIC ACID, VENOUS, WHOLE [id number] 17:29:00 Test Item Value Reference Range Interpretation Comments LACTATE BLOOD VENOUS 1.0 mmol/L 0.5-2.2 Specime n slightly (2) (BEAKER) (test hemolyzed code = 2872) Effective 09/07/2015: Units/Reference Range ChangeNew: 0.5-2.2 mmol/L Previous: 5-20 mg/[id number] 17:29:00 Test Item Value Reference Range Interpretation Comments PARTIAL THROMBOPLASTIN TIME 46.7 seconds 22.5-36.0 H (BEAKER) (test code = 760) PROTHROMBIN TIME/[id number] 17:28:00 Test Item Value Reference Range Interpretation [...] = 2801) RAD, CHEST, 1 VIEW, NON [id number] 17:16:00Reason for exam:->sp acute respiratory failure/bronchospasmShould this [...] enlarged. Noacute osseous abnormality. Signed: Clayton Banegas MDReport Verified Date/Time: 01/22/2018 17:16:12 Reading Location: [facility] Reading Room POCT-GLUCOSE [id number] 17:12:00 Test Item Value Reference Range Interpretation Comments POC-GLUCOSE METER 118 mg/dL 70-110 H TESTED AT [facility] 6720 (BEAKER) (test code = [place] 1538) [address] BLOOD GAS, [id number] 16:35:00 Test Item Value Reference Range Interpretation [...] (test code = 1819) 32.0 % POCT-GLUCOSE [id number] 14:15:00 Test Item Value Reference Range Interpretation Comments POC-GLUCOSE METER 69 mg/dL 70-110 L Will Repea t Test/TESTED (BEAKER) (test code = AT [facility] 6720 [facility] 1538) [facility] 7703 0 POCT-GLUCOSE [id number] 08:43:00 Test Item Value Reference Range Interpretation Comments POC-GLUCOSE METER 277 mg/dL 70-110 H TESTED AT [facility] 6720 (BEAKER) (test code = BREEZY [place] [facility] 1538) [address] [id number] 06:20:00 Test Item Value Reference Range Interpretation Comments PHOSPHORUS (BEAKER) (test code = 3.3 mg/dL 2.3-4.7 604) [id number] 06:20:00 Test Item Value Reference Range Interpretation Comments MAGNESIUM (BEAKER) (test code = 1.8 mg/dL 1.6-2.6 627) BASIC METABOLIC [id number] 06:20:00 Test Item Value Reference Range Interpretation [...] PATIEN TS. CBC W/PLT COUNT & AUTO [id number] 06:09:00 Test Item Value Reference Range Interpretation [...] PERCENT (BEAKER) (test code = 2801) POCT-GLUCOSE [id number] 22:48:00 Test Item Value Reference Range Interpretation Comments POC-GLUCOSE METER 196 mg/dL 70-110 H TESTED AT [facility] 6720 (BEAKER) (test code = [place] 1538) [address] POCT-GLUCOSE [id number] 17:21:00 Test Item Value Reference Range Interpretation Comments POC-GLUCOSE METER 122 mg/dL 70-110 H TESTED AT [facility] 6720 (BEAKER) (test code = [place] 1538) [address] [id number] 13:13:00 Test Item Value Reference Range Interpretation Comments PHOSPHORUS (BEAKER) (test code = 2.4 mg/dL 2.3-4.7 604) BASIC METABOLIC [id number] 13:13:00 Test Item Value Reference Range Interpretation [...] S NOT APPLICABLE FOR DIALYSIS PATIEN TS. [id number] 13:08:00 Test Item Value Reference Range Interpretation Comments MAGNESIUM (BEAKER) (test code = 1.7 mg/dL 1.6-2.6 627) CBC W/PLT COUNT & AUTO [id number] 12:50:00 Test Item Value Reference Range Interpretation [...] EOSINOPHILS ABSOLUTE COUNT 0.47 K/ L 0.04-0.54 (BEAKER) (test code = 416) BASOPHILS ABSOLUTE COUNT (BEAKER) 0.06 K/ L 0.01-0.08 (test code = 417) IMMATURE GRANULOCYTES-RELATIVE 0 % 0-1 PERCENT (BEAKER) (test code = 2801) POCT-GLUCOSE [id number] 12:42:00 Test Item Value Reference Range Interpretation Comments POC-GLUCOSE METER 174 mg/dL 70-110 H TESTED AT [place] [address] ([facility]) (test code = [place] 1538) [address] POCT-GLUCOSE [id number] 08:01:00 Test Item Value Reference Range Interpretation Comments POC-GLUCOSE METER 175 mg/dL 70-110 H TESTED AT [place] [address] ([facility]) (test code = [place] 1538) [address] RAD, CHEST, 1 VIEW, NON [id number] 03:44:00Reason for exam:->ptxShould this be performed at [...] MDReport Verified Date/Time: 11/18/2017 03:44:04 Reading Location: [address] Reading Room POCT- GLUCOSE [id number] 21:05:00 Test Item Value Reference Range Interpretation Comments POC-GLUCOSE METER 145 mg/dL 70-110 H TESTED AT [place] [address] ([facility]) (test code = BREEZY [place] [facility] 1538) [address] POCT-GLUCOSE [id number] 17:19:00 Test Item Value Reference Range Interpretation Comments POC-GLUCOSE METER 129 mg/dL 70-110 H TESTED AT [place] [address] ([facility]) (test code = [place] 1538) [address] POCT-GLUCOSE [id number] 12:12:00 Test Item Value Reference Range Interpretation Comments POC-GLUCOSE METER 194 mg/dL 70-110 H TESTED AT [place] [address] ([facility]) (test code = [place] 1538) [address] POCT-GLUCOSE [id number] 07:30:00 Test Item Value Reference Range Interpretation Comments POC-GLUCOSE METER 171 mg/dL 70-110 H TESTED AT [facility] 6720 (BEAKER) (test code = [place] 1538) [address] RAD, CHEST, 1 VIEW, NON [id number] 07:27:00Reason for exam:->ptxShould this be performed at [...] No pleural effusion is seen. Signed: Boaz Esteban MDReport Verified Date/Time: 11/17/2017 07:27:16 Reading Location: [address] Consult Reading Room [id number] 07:19:00 Test Item Value Reference Range Interpretation Comments MAGNESIUM (BEAKER) (test code = 1.9 mg/dL 1.6-2.6 627) BASIC METABOLIC [id number] 07:19:00 Test Item Value Reference Range Interpretation [...] NOT APPLICABLE FOR DIALYSIS PATIEN TS. POCT-GLUCOSE [id number] 21:30:00 Test Item Value Reference Range Interpretation Comments POC-GLUCOSE METER 214 mg/dL 70-110 H TESTED AT [facility] 6720 (BEAKER) (test code = [place] 1538) [address] URINALYSIS W/ REFLEX URINE [id number] 16:32:00 Test Item Value Reference Range Interpretation [...] 2 /LPF 514) SOURCE(BEAKER) (test code = 2795) RAD, CHEST, 1 VIEW, NON [id number] 15:34:00Reason for exam:->ptxShould this be performed at [...] Esteban Verified Date/Time: 11/16/2017 15:34:49 Reading Location: [facility] C013W [facility] Reading Room POCT-GLUCOSE [id number] 12:10:00 Test Item Value Reference Range Interpretation Comments POC-GLUCOSE METER 203 mg/dL 70-110 H TESTED AT [place] [address] ([facility]) (test code = [facility] Isa [facility] 1538) [address] POCT-GLUCOSE [id number] 08:21:00 Test Item Value Reference Range Interpretation Comments POC-GLUCOSE METER 181 mg/dL 70-110 H TESTED AT [place] [address] ([facility]) (test code = [facility] Isa [facility] 1538) [address] RAD, CHEST, 1 VIEW, NON [id number] 08:03:00while patient is intubated or has chest [...] Tran Verified Date/Time: 11/16/2017 08:03:32 Reading Location: [address] Reading Room POCT-GLUCOSE [id number] 00:11:00 Test Item Value Reference Range Interpretation Comments POC-GLUCOSE METER 159 mg/dL 70-110 H TESTED AT [place] [address] ([facility]) (test code = [facility] Isa [facility] 1538) [address] POCT-GLUCOSE [id number] 20:33:00 Test Item Value Reference Range Interpretation Comments POC-GLUCOSE METER 163 mg/dL 70-110 H TESTED AT [facility] 6720 (BEAKER) (test code = [place] 1538) [address] POCT-GLUCOSE [id number] 17:33:00 Test Item Value Reference Range Interpretation Comments POC-GLUCOSE METER 183 mg/dL 70-110 H TESTED AT [facility] 6720 (BEAKER) (test code = BREEZY Moss [facility] 1538) [address] URINE IMMUNOFIXATION, [id number] 17:17:00 Test Item Value Reference Range Interpretation Comments PROTEIN, URINE 30 mg/dL 0-14 H (BEAKER) (test code = 1569) ALBUMIN URINE ELP 61.4 % (BEAKER) (test code = 1018) GAMMA GLOBULIN URINE 38.6 % (BEAKER) (test code = 1015) URINE GERARD [id number] No monoclonal proteins (BEAKER) (test code = or monoclonal free 2602) light chains detected. [id number] Raine Martin MD ([facility]) (test code = (electronic signature) 1639) RAD, CHEST, 1 VIEW, NON [id number] 13:19:00while patient is intubated or has chest tubes.Reason for exam:->PostopShould this be performed atthe bedside?->YesFINAL REPORT Chest one view compared to November 14 Discussion: Left chest tube, right IJ pulmonary catheter are noted. There is pulmonary congestion and right midlung linear atelectasis grossly similar. No gross effusion. Tiny left apical pneumothorax unchanged. Signed: Denice Tranort Verified Date/Time: 11/15/2017 13:19:28 Reading Location: [facility] Radiology ReadingRoom URINE PROTEIN ELECTROPHORESIS, RANDOM 2017-11-15 12:47:00 Test Item Value Reference Range Interpretation Comments PROTEIN, URINE 12 mg/dL 0-14 (BEAKER) (test code = 1569) ALBUMIN URINE ELP 61.4 % (BEAKER) (test code = 1018) GAMMA GLOBULIN URINE 38.6 % (BEAKER) (test code = 1015) UPEP, [id number] [facility] No monoclonal bands (test code = 2604) detected. [id number] Raine Martin MD (BEAKER) (test code = (electronic signature) 5359) PROTEIN ELECTROPHORESIS, [id number] 12:29:00 Test Item Value Reference Range Interpretation [...] a hemolyzed sample. No monoclonal bands detected. [id number] Raine Martin MD (BEAKER) (test code = (electronic signature) 8918) PROTEIN TOTAL SERUM, 7.0 gm/dL 6.0-8.3 SPEP (BEAKER) (test code = 4900) BLOOD GAS, [id number] 08:21:00 Test Item Value Reference Range Interpretation [...] code = 1819) 20.0 % BASIC METABOLIC [id number] 08:03:00 Test Item Value Reference Range Interpretation [...] DIALYSIS PATIEN TS. LACTIC ACID, ARTERIAL, WHOLE [id number] 07:57:00 Test Item Value Reference Range Interpretation Comments LACTATE BLOOD ARTERIAL (2) 0.8 mmol/L 0.5-2.2 (BEAKER) (test code = 2874) Effective 09/07/2015: Units/Reference Range ChangeNew: 0.5-2.2 mmol/L Previous: 5-20 mg/[id number] 02:55:00 Test Item Value Reference Range Interpretation Comments PHOSPHORUS (BEAKER) (test code = 2.8 mg/dL 2.3-4.7 604) [id number] 02:55:00 Test Item Value Reference Range Interpretation Comments MAGNESIUM (BEAKER) (test code = 2.1 mg/dL 1.6-2.6 627) BASIC METABOLIC [id number] 02:55:00 Test Item Value Reference Range Interpretation [...] NOT APPLICABLE FOR DIALYSIS PATIEN TS. PROTHROMBIN TIME/[id number] 02:53:00 Test Item Value Reference Range Interpretation Comments PROTIME (BEAKER) (test code = 14.9 seconds 11.7-14.7 H 759) INR (BEAKER) (test code = 370) 1.2 <=5.9 RECOMMENDED COUMADIN/WARFARIN INR THERAPY RANGESSTANDARD DOSE: 2.0 - 3.0 Includes: PROPHYLAXIS forvenous thrombosis, systemic embolization; TREATMENT for venous thrombosis and/or pulmonary embolus.HIGH RISK: Target INR is 2.5-3.5 for patients with mechanical heart valves.[id number] 02:53:00 Test Item Value Reference Range Interpretation Comments PARTIAL THROMBOPLASTIN TIME 34.0 seconds 22.5-36.0 (BEAKER) (test code = 760) CBC W/PLT COUNT & AUTO [id number] 02:43:00 Test Item Value Reference Range Interpretation [...] PERCENT (BEAKER) (test code = 2801) PLATELET [id number] 02:35:00 Test Item Value Reference Range Interpretation Comments PLATELET COUNT (BEAKER) (test 167 K/CU MM 150-450 code = 756) GLUCOSE-STAT [id number] 02:32:00 Test Item Value Reference Range Interpretation Comments GLUCOSE RANDOM (BEAKER) (test code 112 mg/dL 70-110 H = 652) HGB/HCT (H&H) - STAT [id number] 02:32:00 Test Item Value Reference Range Interpretation Comments HEMOGLOBIN (BEAKER) (test code = 10.5 g/dL 13.0-16.8 L 410) HEMATOCRIT (BEAKER) (test code = 31.0 % 40.0-50.0 L 411) CALCIUM, [id number] 02:31:00 Test Item Value Reference Range Interpretation Comments CALCIUM IONIZED (BEAKER) (test 1.18 mmol/L 1.12-1.27 code = 698) PH, BLOOD (BEAKER) (test code = 7.38 1810) SODIUM NA-STAT [id number] 02:31:00 Test Item Value Reference Range Interpretation Comments SODIUM (BEAKER) (test code = 381) 137 meq/L 135-148 POTASSIUM-STAT [id number] 02:31:00 Test Item Value Reference Range Interpretation Comments POTASSIUM (BEAKER) (test code = 3.7 meq/L 3.6-5.5 379) POCT-GLUCOSE [id number] 00:40:00 Test Item Value Reference Range Interpretation Comments POC-GLUCOSE METER 129 mg/dL 70-110 H TESTED AT [place] [address] ([facility]) (test code = BREEZY [place] [facility] 1538) [address] POCT-GLUCOSE [id number] 00:40:00 Test Item Value Reference Range Interpretation Comments POC-GLUCOSE METER 143 mg/dL 70-110 H TESTED AT [place] [address] ([facility]) ([facility] 1538) [address] POCT-GLUCOSE [id number] 21:41:00 Test Item Value Reference Range Interpretation Comments POC-GLUCOSE METER 179 mg/dL 70-110 H TESTED AT [place] [address] ([facility]) (test code = BREEZY [place] [facility] 1538) [address] BLOOD GAS, [id number] 19:39:00 Test Item Value Reference Range Interpretation [...] (test code = 1819) 40.0 % GLUCOSE-STAT [id number] 19:39:00 Test Item Value Reference Range Interpretation Comments GLUCOSE RANDOM (BEAKER) (test code 160 mg/dL 70-110 H = 652) HGB/HCT (H&H) - STAT [id number] 19:39:00 Test Item Value Reference Range Interpretation Comments HEMOGLOBIN (BEAKER) (test code = 11.0 g/dL 13.0-16.8 L 410) HEMATOCRIT (BEAKER) (test code = 32.0 % 40.0-50.0 L 411) SODIUM NA-STAT [id number] 19:37:00 Test Item Value Reference Range Interpretation Comments SODIUM (BEAKER) (test code = 381) 137 meq/L 135-148 POTASSIUM-STAT [id number] 19:37:00 Test Item Value Reference Range Interpretation Comments POTASSIUM (BEAKER) (test code = 4.0 meq/L 3.6-5.5 379) BLOOD GAS, [id number] 18:02:00 Test Item Value Reference Range Interpretation [...] arterial line present.RAD, CHEST, 1 VIEW, NON [id number] 17:20:00 Reason for exam:->PostopShould this be performed at the bedside?->YesFINAL REPORT EXAM: Frontal chest radiograph HISTORY PROVIDED: Postop COMPARISON: 11/13/2017 IMPRESSION:The tip of an endotracheal tube terminates 3.8 cm above the alexia. A right IJ approach Tyner-Jun catheter has been placed with its tip [...] MDReport Verified Date/Time: 11/14/2017 17:20:20 Reading Location: [facility] Reading Room C METABOLIC [id number] 16:02:00 Test Item Value Reference Range Interpretation [...] S NOT APPLICABLE FOR DIALYSIS PATIEN TS. [id number] 16:02:00 Test Item Value Reference Range Interpretation Comments PHOSPHORUS (BEAKER) (test code = 2.3 mg/dL 2.3-4.7 604) [id number] 16:02:00 Test Item Value Reference Range Interpretation Comments MAGNESIUM (BEAKER) (test code = 2.6 mg/dL 1.6-2.6 627) LACTIC ACID, ARTERIAL, WHOLE [id number] 15:58:00 Test Item Value Reference Range Interpretation Comments LACTATE BLOOD 0.9 mmol/L 0.5-2.2 Specimen sligh tly ARTERIAL (2) (BEAKER) hemoly zed (test code = 2874) Effective 09/07/2015: Units/Reference Range ChangeNew: 0.5-2.2 mmol/L Previous: 5-20 mg/dLCBC W/PLT COUNT & AUTO [id number] 15:47:00 Test Item Value Reference Range Interpretation [...] (BEAKER) (test code = 2801) OXYGEN SATURATION, [id number] 15:37:00 Test Item Value Reference Range Interpretation Comments O2 SATURATION (MEASURED) (BEAKER) 55.5 % (test code = 1455) CALCIUM, [id number] 15:37:00 Test Item Value Reference Range Interpretation Comments CALCIUM IONIZED (BEAKER) (test 1.12 mmol/L 1.12-1.27 code = 698) PH, BLOOD (BEAKER) (test code = 7.41 1810) SODIUM NA-STAT [id number] 15:37:00 Test Item Value Reference Range Interpretation Comments SODIUM (BEAKER) (test code = 381) 138 meq/L 135-148 POTASSIUM-STAT [id number] 15:37:00 Test Item Value Reference Range Interpretation Comments POTASSIUM (BEAKER) (test code = 3.6 meq/L 3.6-5.5 379) BLOOD GAS, [id number] 15:37:00 Test Item Value Reference Range Interpretation [...] (test code = 1819) 60.0 % GLUCOSE-STAT [id number] 15:37:00 Test Item Value Reference Range Interpretation Comments GLUCOSE RANDOM (BEAKER) (test code 162 mg/dL 70-110 H = 652) HEMOGLOBIN-STAT [id number] 15:37:00 Test Item Value Reference Range Interpretation Comments HEMOGLOBIN (BEAKER) (test code = 11.2 g/dL 13.0-16.8 L 410) HGB/HCT (H&H) - STAT [id number] 15:37:00 Test Item Value Reference Range Interpretation Comments HEMOGLOBIN (BEAKER) (test code = 11.2 GM/DL 13.0-16.8 L 410) HEMATOCRIT (BEAKER) (test code = 33.0 % 40.0-50.0 L 411) [id number] 14:04:00 Test Item Value Reference Range Interpretation Comments ACTIVATED CLOTTING TIME 114 sec TEST ED AT [place] [address] ([facility]) (test code = BREEZY [place] [facility] 441) [address] [id number] 14:04:00 Test Item Value Reference Range Interpretation Comments ACTIVATED CLOTTING TIME 472 sec TEST ED AT [place] [address] ([facility]) (test code = BREEZY Moss [facility] 441) [address] [id number] 14:04:00 Test Item Value Reference Range Interpretation Comments ACTIVATED CLOTTING TIME 505 sec TEST ED AT [place] [address] ([facility]) (test code = [place]REEZ[place] [address]) [address] [id number] 14:04:00 Test Item Value Reference Range Interpretation Comments ACTIVATED CLOTTING TIME 543 sec TEST ED AT [place] [address] ([facility]) (test code = BREEZY [place] [address]) [address] CALCIUM, [id number] 13:58:00 Test Item Value Reference Range Interpretation Comments CALCIUM IONIZED (BEAKER) (test 1.11 mmol/L 1.12-1.27 L code = 698) PH, BLOOD (BEAKER) (test code = 7.36 1810) BLOOD GAS, [id number] 13:56:00 Test Item Value Reference Range Interpretation [...] (test code = 1819) 100.0 % GLUCOSE-STAT [id number] 13:56:00 Test Item Value Reference Range Interpretation Comments GLUCOSE RANDOM (BEAKER) (test code 167 mg/dL 70-110 H = 652) HGB/HCT (H&H) - STAT [id number] 13:56:00 Test Item Value Reference Range Interpretation Comments HEMOGLOBIN (BEAKER) (test code = 10.8 g/dL 13.0-16.8 L 410) HEMATOCRIT (BEAKER) (test code = 32.0 % 40.0-50.0 L 411) SODIUM NA-STAT [id number] 13:55:00 Test Item Value Reference Range Interpretation Comments SODIUM (BEAKER) (test code = 381) 136 meq/L 135-148 POTASSIUM-STAT [id number] 13:55:00 Test Item Value Reference Range Interpretation Comments POTASSIUM (BEAKER) (test code = 3.8 meq/L 3.6-5.5 379) BLOOD GAS, [id number] 12:54:00 Test Item Value Reference Range Interpretation [...] code = 1819) 65.0 % SODIUM NA-STAT [id number] 12:54:00 Test Item Value Reference Range Interpretation Comments SODIUM (BEAKER) (test code = 381) 134 meq/L 135-148 L GLUCOSE-STAT [id number] 12:54:00 Test Item Value Reference Range Interpretation Comments GLUCOSE RANDOM (BEAKER) (test code 158 mg/dL 70-110 H = 652) HGB/HCT (H&H) - STAT [id number] 12:54:00 Test Item Value Reference Range Interpretation Comments HEMOGLOBIN (BEAKER) (test code = 8.8 g/dL 13.0-16.8 L 410) HEMATOCRIT (BEAKER) (test code = 26.0 % 40.0-50.0 L 411) POTASSIUM-STAT [id number] 12:53:00 Test Item Value Reference Range Interpretation Comments POTASSIUM (BEAKER) (test code = 4.1 meq/L 3.6-5.5 379) BLOOD GAS, [id number] 12:20:00 Test Item Value Reference Range Interpretation [...] code = 1819) 60.0 % SODIUM NA-STAT [id number] 12:20:00 Test Item Value Reference Range Interpretation Comments SODIUM (BEAKER) (test code = 381) 134 meq/L 135-148 L GLUCOSE-STAT [id number] 12:20:00 Test Item Value Reference Range Interpretation Comments GLUCOSE RANDOM (BEAKER) (test code 187 mg/dL 70-110 H = 652) HGB/HCT (H&H) - STAT [id number] 12:20:00 Test Item Value Reference Range Interpretation Comments HEMOGLOBIN (BEAKER) (test code = 10.0 g/dL 13.0-16.8 L 410) HEMATOCRIT (BEAKER) (test code = 29.0 % 40.0-50.0 L 411) BLOOD GAS, [id number] 12:20:00 Test Item Value Reference Range Interpretation [...] (test code = 1819) 60.0 % POTASSIUM-STAT [id number] 12:18:00 Test Item Value Reference Range Interpretation Comments POTASSIUM (BEAKER) (test code = 3.5 meq/L 3.6-5.5 L 379) U/S, RENAL WITH [id number] 08:35:00Reason for exam:->INCLUDE DOPPLERS AND PVR- for [...] ultrasound examination and Doppler evaluation. Signed: Willie Sanchezeport Verified Date/Time: 11/14/2017 08:35:40 Reading Location: [address] Ultrasound Reading Room POCT-GLUCOSE [id number] 07:34:00 Test Item Value Reference Range Interpretation Comments POC-GLUCOSE METER 190 mg/dL 70-110 H TESTED AT [facility] 6720 (BEAKER) (test code = BREEZY Moss [facility] 1538) [id number] 05:19:00 Test Item Value Reference Range Interpretation Comments MAGNESIUM (BEAKER) (test code = 2.0 mg/dL 1.6-2.6 627) BASIC METABOLIC [id number] 05:19:00 Test Item Value Reference Range Interpretation [...] PATIEN TS. CBC W/PLT COUNT & AUTO [id number] 05:00:00 Test Item Value Reference Range Interpretation [...] 0-1 PERCENT (BEAKER) (test code = 2801) [id number] 01:56:00 Test Item Value Reference Range Interpretation Comments PARTIAL THROMBOPLASTIN TIME 69.0 seconds 22.5-36.0 H (BEAKER) (test code = 760) POCT-GLUCOSE [id number] 22:07:00 Test Item Value Reference Range Interpretation Comments POC-GLUCOSE METER 185 mg/dL 70-110 H TESTED AT [facility] 6720 (BEAKER) (test code = [place] 1538) [id number] 18:43:00 Test Item Value Reference Range Interpretation Comments PARTIAL THROMBOPLASTIN TIME 45.2 seconds 22.5-36.0 H (BEAKER) (test code = 760) [id number] 16:12:00 Test Item Value Reference Range Interpretation Comments THYROID STIMULATING HORMONE 0.53 uIU/mL 0.35-4.94 (BEAKER) (test code = 772) RAD, CHEST, 1 VIEW, NON [id number] 15:33:00Reason for exam:->preopShould this be performed at the bedside?->YesFINAL REPORT EXAM: Frontal chest radiograph HISTORY PROVIDED: Preop COMPARISON: 11/12/2017 IMPRESSION:No focal consolidation, pneumothorax, or significant pleural fluid. The cardiomediastinal silhouette is within normal limits. No acute osseous abnormality. Degenerative changes of the spine are present. Signed: Clayton Banegas Verified Date/Time: 11/13/2017 15:33:28Reading Location: [facility] Mammo Reading Room Electronically signed by: CLAYTON BANEGAS on 11/03 03:33 [id number] 15:06:00 Test Item Value Reference Range Interpretation Comments PARTIAL THROMBOPLASTIN TIME 51.6 seconds 22.5-36.0 H (BEAKER) (test code = 760) PROTHROMBIN [id number] 15:05:00 Test Item Value Reference Range Interpretation [...] INTERPRETATION (BEAKER) arachidonic acid (test code = 959080) suggests aspirin-like effect. [id number] Deven Mei MD (BEAKER) (test code = (mtrobgzqie 5201) signature) PLATELET COUNT AGG 243 K/CU MM 150-450 (BEAKER) (test code = 2656) Platelet aggregation results may be falsely low with platelet counts<100,000/CU MM.CREATININE, RANDOM [id number] 06:28:00 Test Item Value Reference Range Interpretation Comments CREATININE URINE (BEAKER) (test 114.6 mg/dL code = 375) Reference Range: No NormalsPROTEIN, RANDOM [id number] 06:28:00 Test Item Value Reference Range Interpretation Comments PROTEIN, URINE (BEAKER) (test code = 30 mg/dL 0-14 H 1569) PH, [id number] 05:47:00 Test Item Value Reference Range Interpretation Comments PH VENOUS (BEAKER) (test code = 701) 7.40 7.32-7.42 VITAMIN D, 27-[id number] 04:52:00 Test Item Value Reference Range Interpretation Comments VITAMIN D 25-OH (BEAKER) (test 36.5 ng/mL 6.6-49.9 code = 2764) Effective 02/13/2017: Reference Range ChangeNew: 6.6-49.9 ng/mL Previous: 13.0-47.8 ng/mLRecommended Vitamin D Target Range: 30.0-40.0 ng/mLPTH, INTACT 2017-11-13 04:25:00 Test Item Value Reference Range Interpretation Comments PARATHYROID HORMONE INTACT 91.7 pg/mL 8.5-72.5 H (BEAKER) (test code = 577) [id number] 04:21:00 Test Item Value Reference Range Interpretation Comments PARTIAL THROMBOPLASTIN TIME 53.6 seconds 22.5-36.0 H (BEAKER) (test code = 760) URIC [id number] 04:20:00 Test Item Value Reference Range Interpretation Comments URIC ACID (BEAKER) (test code = 9.0 mg/dL 2.6-7.2 H 773) [id number] 04:20:00 Test Item Value Reference Range Interpretation Comments MAGNESIUM (BEAKER) (test code = 2.0 mg/dL 1.6-2.6 627) [id number] 04:20:00 Test Item Value Reference Range Interpretation Comments PHOSPHORUS (BEAKER) (test code = 3.1 mg/dL 2.3-4.7 604) BASIC METABOLIC [id number] 04:20:00 Test Item Value Reference Range Interpretation [...] PATIEN TS. CBC W/PLT COUNT & AUTO [id number] 04:06:00 Test Item Value Reference Range Interpretation [...] 417) IMMATURE GRANULOCYTES-RELATIVE 1 % 0-1 PERCENT ([facility]) (test code = 2801) [id number] 22:34:00 Test Item Value Reference Range Interpretation Comments PARTIAL THROMBOPLASTIN TIME 49.5 seconds 22.5-36.0 H ([facility]) (test code = 760) POCT-GLUCOSE [id number] 21:55:00 Test Item Value Reference Range Interpretation Comments POC-GLUCOSE METER 179 mg/dL 70-110 H TESTED AT [facility] 67 ([facility]) (test code = [facility] 1538) [address] RAD, CHEST, 1 VIEW, NON [id number] 17:03:00Reason for exam:->sobShould this be performed at the bedside?->YesFINAL REPORT CHEST AP PORTABLE History provided: Shortness of breath Comparison studies: None Heart size normal. Lungs grossly clear and vascularity normal. IMPRESSION: Grossly clear chest. Signed: Eboni Johnson Verified Date/Time: 11/12/2017 17:03:31 Reading Location: [address] Radiology Reading Room [id number] 15:41:00 Test Item Value Reference Range Interpretation Comments PARTIAL THROMBOPLASTIN TIME 41.3 seconds 22.5-36.0 H ([facility]) (test code = 760) POCT-GLUCOSE [id number] 11:50:00 Test Item Value Reference Range Interpretation Comments POC-GLUCOSE METER 218 mg/dL 70-110 H TESTED AT [facility] 6720 ([facility]) (test code = [facility] 1538) [address] PLATELET AGGREGATION: FUNCTION [id number] 10:14:00 Test Item Value Reference Range Interpretation Comments WEAK ADP 82 % 60-91 RESULT([facility]) (test code = 2135) PLATELET FUNCTION 60-100% indicates This is a corrected SCREEN INTERP normal platelet result. Pre vious (BEAKER) (test function result was 50 -59% code = 2173) indicates mild platelet dysfunction on 11/11/2017 at 192 1 CDT [facility]-PATHOLOGIST- Deven Mei MD 4952 (BEAKER) (electronic (test code = signature) 0873) PLATELET COUNT 283 K/CU MM 150-450 AGG (BEAKER) (test code = 4366) TROPONIN [id number] 08:02:00 Test Item Value Reference Range Interpretation Comments TROPONIN I (BEAKER) (test code = 17.70 ng/mL 0.00-0.03 HH 397) Troponin I (TnI) levels must be [...] failure, acidosis, acute neurological disease, and persistent tachyarrhythmia.[id number] 07:55:00 Test Item Value Reference Range Interpretation Comments PARTIAL THROMBOPLASTIN TIME 42.7 seconds 22.5-36.0 H (BEAKER) (test code = 760) [id number] 07:55:00 Test Item Value Reference Range Interpretation Comments MAGNESIUM (BEAKER) (test code = 2.3 mg/dL 1.6-2.6 627) BASIC METABOLIC [id number] 07:55:00 Test Item Value Reference Range Interpretation [...] PATIEN TS. CBC W/PLT COUNT & AUTO [id number] 07:49:00 Test Item Value Reference Range Interpretation [...] PERCENT (BEAKER) (test code = 2801) POCT-GLUCOSE [id number] 07:33:00 Test Item Value Reference Range Interpretation Comments POC-GLUCOSE METER 159 mg/dL 70-110 H TESTED AT [facility] 6720 (BEAKER) (test code = [place] 1538) [address] [id number] 00:57:00 Test Item Value Reference Range Interpretation Comments PARTIAL THROMBOPLASTIN TIME 47.6 seconds 22.5-36.0 H (BEAKER) (test code = 760) [id number] 00:40:00 Test Item Value Reference Range Interpretation Comments MAGNESIUM (BEAKER) 2.3 mg/dL 1.6-2.6 Specimen slightly (test code = 627) hemolyzed BASIC METABOLIC [id number] 00:40:00 Test Item Value Reference Range Interpretation [...] NOT APPLICABLE FOR DIALYSIS PATIEN TS. POCT-GLUCOSE [id number] 21:57:00 Test Item Value Reference Range Interpretation Comments POC-GLUCOSE METER 162 mg/dL 70-110 H TESTED AT [facility] 6720 (BEAKER) (test code = [place] 1538) [address] HEMOGLOBIN [id number] 19:53:00 Test Item Value Reference Range Interpretation Comments HEMOGLOBIN A1C (BEAKER) (test code = 7.0 % 4.3-6.1 H 368) LIPID [id number] 18:10:00 Test Item Value Reference Range Interpretation [...] 130-159 High 160-189 Very High >=190BASIC METABOLIC [id number] 18:10:00 Test Item Value Reference Range Interpretation [...] APPLICABLE FOR DIALYSIS PATIEN TS. HEPATIC FUNCTION [id number] 18:10:00 Test Item Value Reference Range Interpretation [...] (test code = 24 U/L 6-55 347) [id number] 17:56:00 Test Item Value Reference Range Interpretation [...] PERCENT (BEAKER) (test code = 2801) POCT-GLUCOSE [id number] 16:49:00 Test Item Value Reference Range Interpretation Comments POC-GLUCOSE METER 128 mg/dL 70-110 H TESTED AT [facility] [address] ([facility]) (test code = [place] 1538) [id number]
--- NOTE | 2020-08-22 12:28 | RAD REPORT ---
EXAM DESCRIPTION: RAD - Chest Single View - 08/22/2020 12:08 pm CLINICAL HISTORY: SOB COMPARISON: June 13 TECHNIQUE: AP portable chest image was obtained 08/22/2020 12:08 pm . FINDINGS: Lungs are fibrotic as a baseline. Interstitial pattern is slightly less pronounced than se en on comparison. Current lung parenchymal findings are favored to be baseline. Heart and vasculature are normal. No measurable pleural effusion and no pneumothorax. No acute bony abnormality seen. No acute aortic findings suspected. IMPRESSION: Extensive chronic interstitial lung disease similar to comparison.
[2020-08-22 12:48] LABS: Protime INR 2.19
[2020-08-22 12:57] LABS: Absolute Lymphocytes (CBC) 1.9 K/uL (0.7-4.9); Basophils % 1.1 % (0-1.3); Hematocrit 35.8 % (39.6-49.0); Lymphocytes % 17.7 % (15.3-44.8); MPV 9.5 fL (7.6-11.3)
[2020-08-22] MEDS ORDERED: FUROSEMIDE 20 MG/ 2ML VIAL ONE (12:59)
[2020-08-22 13:05] LABS: Albumin 3.2 g/dL (3.4-5.0); Bilirubin Direct 0.1 mg/dL (0-0.2); Bilirubin Total 0.5 mg/dL (0.2-1.0); CKMB Creatine Kinase MB 2.5 ng/mL (0.3-3.6); Magnesium 1.7 mg/dL (1.8-2.4); Protein, Total 6.8 g/dL (6.4-8.2); Troponin (Emerg Dept Use Only) 0.03 ng/mL (0.0-0.045)
--- NOTE | 2020-08-22 13:50 | EDPHYS ---
Physician Documentation [facility] Name: Ludwin Hsu Age: 69 yrs Sex: Male : 1950 Arrival Date: 08/22/2020 Time: 10:28 Bed 4 Private MD: Gail Mendoza F ED Physician Mal Gold HPI: 08/22 12:29 This 69 yrs old Male presents to ER via Wheelchair with complaints of jmm Breathing Difficulty. 12:29 The patient has shortness of breath at rest. Onset: The symptoms/episode began/occurred jmm gradually, today. Duration: The symptoms are continuous, but are steadily getting better. The patient's shortness of breath is aggravated by nothing, is alleviated by nothing. Associated signs and symptoms: Pertinent negatives: chest pain, non-productive cough, productive cough, fever, numbness in extremities. The patient has experienced similar episodes in the past. Patient denies fever, chills, swelling in extremities, . Historical: - Allergies: 10:40 NKA; ll1 - PMHx: 10:40 kidney disease; malignant neoplasm of epidimyis; Pancreatitis; Myocardial infarction; ll1 Hypertension; Diabetes - NIDDM; chronic back pain; COPD; tinnitus; CHF; arteriosclerosis; PTSD; - PSHx: 10:40 heart bypass; ll1 - Immunization history:: Client reports receiving the 2nd dose of the Covid vaccine, Flu vaccine is up to date. - Social history:: Smoking status: Patient reports the use of cigarette tobacco products, denies chronic smoking, but will smoke occasionally, smokes one-half pack cigarettes per day. ROS: 12:29 Constitutional: Negative for fever, chills, and weight loss, Cardiovascular: Negative jmm for chest pain, palpitations, and edema. 12:29 Respiratory: Positive for shortness of breath. 12:29 All other systems are negative. Exam: 12:29 Constitutional: This is a well developed, well nourished patient who is awake, alert, jmm and in no acute distress. Head/Face: atraumatic. Eyes: EOMI, no conjunctival erythema appreciated ENT: Moist Mucus Membranes Neck: Trachea midline, Supple Chest/axilla: Normal chest wall appearance and motion. Cardiovascular: Regular rate and rhythm. No edema appreciated Respiratory: Normal respirations, no respiratory distress appreciated Abdomen/GI: Non distended, soft Back: Normal ROM Skin: General appearance color normal MS/ Extremity: Moves all extremities, no obvious deformities appreciated, no edema noted to the lower extremities Neuro: Awake and alert, normal gait Psych: Behavior is normal, Mood is normal, Patient is cooperative and pleasant Vital Signs: 10:38 BP 141 / 81; Pulse 92; Resp 20; Temp 98.5; Pulse Ox 97% ; Weight 120.2 kg; Height 6 ft. ll1 0 in. (182.88 cm); Pain 0/10; 12:26 BP 158 / 95; Pulse 66; Resp 18; Pulse Ox 100% ; sv 13:00 BP 140 / 84; Pulse 68; Resp 20; Pulse Ox 100% ; sv 10:38 Body Mass Index 35.94 (120.20 kg, 182.88 cm) ll1 MDM: 12:28 Patient medically screened. kezia 13:47 Data reviewed: vital signs, nurses notes. Counseling: I had a detailed discussion with kezia the patient and/or guardian regarding: the historical points, exam findings, and any diagnostic results supporting the discharge/admit diagnosis, lab results, radiology results, the need for outpatient follow up, to return to the emergency department if symptoms worsen or persist or if there are any questions or concerns that arise at home. ED course: Patient is alert and non toxic in appearance in the ED. Patient states he feels much better. Denies SOB currently. Patient is advised to follow up with pcp and otherwise given strict return precautions. patient understood and agree with the plan of care. . 08/22 11:24 Order name: Blood Culture Adult (2) 08/22 11:24 Order name: BMP 08/22 11:24 Order name: CBC with Diff 08/22 11:24 Order name: Ckmb 08/22 11:24 Order name: CPK; Complete Time: 13:15 08/22 11:24 Order name: D-Dimer; Complete Time: 13:22 08/22 11:24 Order name: Hepatic Function; Complete Time: 13:15 08/22 11:24 Order name: Lipase; Complete Time: 13:15 08/22 11:24 Order name: Magnesium; Complete Time: 13:15 08/22 11:24 Order name: NT PRO-BNP; Complete Time: 13:15 tw4 08/22 11:24 Order name: PT-INR; Complete Time: 13:22 tw4 08/22 11:24 Order name: Ptt, Activated; Complete Time: 13:22 tw4 08/22 11:24 Order name: Troponin (emerg Dept Use Only); Complete Time: 13:15 tw4 08/22 11:25 Order name: Blood Culture EDIL 08/22 11:24 Order name: EKG; Complete Time: 11:25 tw4 08/22 11:24 Order name: Cardiac monitoring; Complete Time: 12:18 tw4 08/22 11:24 Order name: EKG - Nurse/Tech; Complete Time: 12:25 tw4 08/22 11:24 Order name: IV Saline Lock; Complete Time: 12:25 tw4 08/22 11:24 Order name: Labs collected and sent; Complete Time: 12:25 tw4 08/22 11:24 Order name: O2 Per Protocol; Complete Time: 12:18 tw4 08/22 11:24 Order name: O2 Sat Monitoring; Complete Time: 12:18 tw4 08/22 11:24 Order name: CXR XRAY; Complete Time: 12:29 tw4 08/22 11:25 Order name: Basic Metabolic Panel; Complete Time: 13:15 EDMS 08/22 11:25 Order name: CBC with Automated Diff; Complete Time: 13:44 EDMS 08/22 11:25 Order name: CKMB Creatine Kinase MB; Complete Time: 13:15 EDMS Administered Medications: 13:01 Drug: Lasix (furosemide) 20 mg Route: IVP; Site: right wrist; sv 13:59 Follow up: Response: No adverse reaction hb Disposition: 17:47 Co-signature as Attending Physician, Mal Gold MD I agree with the assessment and [facility] plan of care. Disposition: 08/22/20 13:49 Discharged to Home. Impression: Dyspnea, unspecified. - Condition is Stable. - Discharge Instructions: Shortness of Breath. - Prescriptions for furosemide 20 mg Oral tablet - take 2 tablet by ORAL route 2 times per day; 60 tablet. - Medication Reconciliation Form, Thank You Letter, Antibiotic Education, Prescription Opioid Use form. - Follow up: Gail Mendoza MD; When: 2 - 3 days; Reason: Recheck today's complaints, Continuance of care, Re-evaluation by your physician. Signatures: Dispatcher [employer] EDAshley Cruz, RN RN Nasir Finch PA PA jmm Baxter, Heather, RN RN Mal Gold MD MD tw4 Yogesh Poole RN RN ll1 Corrections: (The following items were deleted from the chart) 14:33 13:49 08/22/2020 13:49 Discharged to Home. Impression: Dyspnea, unspecified. Condition hb is Stable. Forms are Medication Reconciliation Form, Thank You Letter, Antibiotic Education, Prescription Opioid Use. Follow up: Gail Mendoza; When: 2 - 3 days; Reason: Recheck today's complaints, Continuance of care, Re-evaluation by your physician. kezia
--- NOTE | 2020-08-22 13:50 | ER ---
Nurse's Notes [facility] Name: Ludwin Hsu Age: 69 yrs Sex: Male : 1950 Arrival Date: 08/22/2020 Time: 10:28 Bed 4 Private MD: Gail Mendoza F Diagnosis: Dyspnea, unspecified Presentation: 08/22 10:38 Chief complaint: Patient states: SOB for 1 day. No cough or fever. States he has CHF. ll1 Coronavirus screen: Client denies travel out of the [place] in the last 14 days. difficulty breathing, shortness of breath, Client presents with at least one sign or symptom that may indicate coronavirus-19. Standard/surgical mask placed on the client. Ebola Screen: Patient denies travel to an Ebola-affected area in the 21 days before illness onset. Initial Sepsis Screen: Does the patient meet any 2 criteria? HR > 90 bpm. No. Patient's initial sepsis screen is negative. Does the patient have a suspected source of infection? Yes: Productive cough/pneumonia. Risk Assessment: Do you want to hurt yourself or someone else? Patient reports no desire to harm self or others. Onset of symptoms was August 22, 2020. 10:38 Method Of Arrival: Wheelchair ll1 10:38 Acuity: NGUYEN 3 ll1 Historical: - Allergies: 10:40 NKA; ll1 - PMHx: 10:40 kidney disease; malignant neoplasm of epidimyis; Pancreatitis; Myocardial infarction; ll1 Hypertension; Diabetes - NIDDM; chronic back pain; COPD; tinnitus; CHF; arteriosclerosis; PTSD; - PSHx: 10:40 heart bypass; ll1 - Immunization history:: Client reports receiving the 2nd dose of the Covid vaccine, Flu vaccine is up to date. - Social history:: Smoking status: Patient reports the use of cigarette tobacco products, denies chronic smoking, but will smoke occasionally, smokes one-half pack cigarettes per day. Screenin:27 Abuse screen: Denies threats or abuse. Denies injuries from another. Nutritional hb screening: No deficits noted. Tuberculosis screening: No symptoms or risk factors identified. Fall Risk None identified. Assessment: 12:27 General: Appears in no apparent distress. Behavior is calm, cooperative. Pain: Denies hb pain. Neuro: Level of Consciousness is awake, alert, obeys commands, Oriented to person, place, time, situation. Cardiovascular: Patient's skin is warm and dry. Rhythm is regular. Respiratory: Reports shortness of breath at rest on exertion cough that is Respiratory effort is even, unlabored, Respiratory pattern is regular, symmetrical. GI: No signs and/or symptoms were reported involving the gastrointestinal system. : No signs and/or symptoms were reported regarding the genitourinary system. EENT: No signs and/or symptoms were reported regarding the EENT system. Derm: Skin is pink, warm \T\ dry. Musculoskeletal: No signs and/or symptoms reported regarding the musculoskeletal system. 13:15 Reassessment: Patient appears in no apparent distress at this time. Patient and/or hb family updated on plan of care and expected duration. Pain level reassessed. Patient is alert, oriented x 3, equal unlabored respirations, skin warm/dry/pink. 14:07 Reassessment: Patient appears in no apparent distress at this time. Patient and/or hb family updated on plan of care and expected duration. Pain level reassessed. Patient is alert, oriented x 3, equal unlabored respirations, skin warm/dry/pink. Vital Signs: 10:38 BP 141 / 81; Pulse 92; Resp 20; Temp 98.5; Pulse Ox 97% ; Weight 120.2 kg; Height 6 ft. ll1 0 in. (182.88 cm); Pain 0/10; 12:26 BP 158 / 95; Pulse 66; Resp 18; Pulse Ox 100% ; sv 13:00 BP 140 / 84; Pulse 68; Resp 20; Pulse Ox 100% ; sv 10:38 Body Mass Index 35.94 (120.20 kg, 182.88 cm) ll1 ED Course: 10:28 Patient arrived in ED. mr 10:28 Gail Mendoza MD is Private Physician. mr 10:39 Triage completed. ll1 10:40 Arm band placed on. ll1 11:56 Nasir David PA is PHCP. [facility] 11:56 Mal Gold MD is Attending Physician. [facility] 12:06 CXR XRAY In Process Unspecified. EDMS 12:12 Nasir David PA is PHCP. [facility] 12:12 Mal Gold MD is Attending Physician. [facility] 12:12 Patient has correct armband on for positive identification. Placed in gown. Bed in low sv position. Call light in reach. security system engineer on. Pulse ox on. NIBP on. 12:12 First set of blood cultures drawn by ED staff. sv 12:22 Second set of blood cultures drawn by ED staff. Inserted saline lock: 20 gauge in right sv antecubital area, using aseptic technique. ,using aseptic technique. done by Liza MITCHELL Blood collected. 12:26 EKG done, by ED staff, reviewed by Nasir SEQUEIRA. em1 12:34 Liza Irvin, RN is Primary Nurse. hb 13:03 Blood Culture Adult (2) Sent. sv 13:03 BMP Sent. sv 13:03 CBC with Diff Sent. sv 13:03 Ckmb Sent. sv 13:49 Gail Mendoza MD is Referral Physician. [facility] 14:07 No provider procedures requiring assistance completed. IV discontinued, intact, hb bleeding controlled, No redness/swelling at site. Administered Medications: 13:01 Drug: Lasix (furosemide) 20 mg Route: IVP; Site: right wrist; sv 13:59 Follow up: Response: No adverse reaction hb Outcome: 13:49 Discharge ordered by MD. [facility] 14:07 Discharged to home ambulatory. hb 14:07 Condition: stable 14:07 Discharge instructions given to patient, Instructed on discharge instructions, follow up and referral plans. medication usage, Demonstrated understanding of instructions, follow-up care, medications. 14:33 Patient left the ED. hb Signatures: Dispatcher [employer] EDMS Ashley Martinez, RN Nasir Morrow PA PA [facility] Isabel John mr Hensley, Calvin em1 Liza Irvin, RN RN Yogesh Grant, RN RN ll1
[2020-08-22 14:39] VITALS: TEMP 98.5
[2020-08-22 14:40] VITALS: O2SAT 100
[2020-08-22 14:41] VITALS: BP 140/84
--- NOTE | 2020-08-23 12:17 | EKG ---
Test Date: 2020-08-22 Test Time: 12:23:59 Motor Block Mechanic: DENAE MEASUREMENT RESULTS: Intervals: Rate: 76 [place]: QRSD: 126 QT: 428 QTc: 481 Jerome: P: NJ: QRS: -68 T: -85 INTERPRETIVE STATEMENTS: Atrial flutter with variable AV block Left axis deviation Left ventricular hypertrophy with QRS widening T wave abnormality, consider inferolateral ischemia Abnormal ECG Compared to ECG 08/11/2020 03:28:58 Atrial fibrillation no longer present Ventricular premature complex(es) no longer present T-wave abnormality still present Possible ischemia still present Electronically Signed On 08-23-20 12:13:35 CDT by Jose Nunn
== END 2020-08-22 14:33 | disposition home or self-care (01) ==
LOC: ER 10:25
DX: R06.00 Dyspnea, unspecified (principal); I10 Essential (primary) hypertension; F17.210 Nicotine dependence, cigarettes, uncomplicated; Z85.48 Personal history of malignant neoplasm of epididymis; Z95.1 Presence of aortocoronary bypass graft
CPT/HCPCS: 87040 ×2; 85025; 80048; 36415; 83735; 82550; 85610; 85379; 80076; 85730; 84484; 82553; 83690; 83880; 71045; J1940; 93005; 96374; 99285

== ENCOUNTER 2020-08-28 07:48 | Inpatient (IN) | payer OTHER ==
--- OUTSIDE RECORDS SUMMARY | 2020-08-28 07:54 | XMS REPORT | Continuity of Care Document ---
:1950 Author Organization [facility] t Address [address] Jean Baptiste. [address] [place] [address] Care Team Providers Name Role Phone Asha [...] Acute Disease Active [facility] hypox[facility]emic 19 [facility] - respirator respirator 00:00: Me dical y failure y failure 00 Cent er Acute Acute Disease Active [facility] respirator respirator 9 Katerine kes - y failure y failure 00:00: Medi oralia 00 Center S/P CABG S/P CABG Disease Active [facility] (coronary (coronary 7-17 [facility] - artery artery 00:00: Medical bypass bypass 00 Center graft) graft) NSTEMI NSTEMI Disease Active [facility] (non-ST (non-ST 7-17 [facility] - elevated elevated 00:00: Medica l myocardial myocardial 00 Ce nter infarction infarction ) ) Essential Essential Disease Active [facility] hypertensi hypertensi -17 Katerine kes - on on 00:00: Medical 00 Center Acute on Acute on Disease Active [facility] chronic chronic 11-19 [facility] - diastolic diastolic 00:00: Medi oralia (congestiv (congestiv 00 Ce nter e) heart e) heart failure failure Acute Acute Disease Active [facility] respirator respirator 11-14 Katerine kes - y y 00:00: Medical insufficie insufficie 00 Ce nter ncy ncy Other Other Disease Active [facility] shock shock 11-14 [facility] - 00:00: Medical 00 [facility] CAD CAD Disease Active [facility] (coronary (coronary 11-11 Lu s - artery artery 00:00: Medical disease) disease) 00 Center CKD CKD Disease Active Overview: [facility] (chronic (chronic 05-06 Baseline [place] - kidney kidney 00:00: Creatinin Medical disease) disease) 00 e ~ 1-1.[address] stage 2, stage 2, GFR 60-89 GFR 60-89 ml/min ml/min Coronary Coronary Disease Active Overview: [facility] artery artery 05-06 PCI [facility] - disease disease 00:00: 2016- on Medica l 00 plavix / Center ACB x 3: IBRAHIM-> LAD, SVG-> OM1, SVG-> OM2 Diabetes Diabetes Disease Active Overview: [facility] mellitus mellitus 05-06 oral meds [facility] es - 00:00: including Medical 00 metformin Center Hypertensi Hypertensi Disease Active [facility] on on 05-06 [facility] - 00:00: Medical 00 [facility] NORRIS on NORRIS on Disease Active Overview: [facility] CPAP CPAP claims [facility] Medical e with Center CPAP Current Current Disease Active [facility] smoker smoker [facility] Allergies, Adverse Reactions, Alerts Allergy Allergy Status Severity Reaction(s) Onset Inactive Treating Comm ents Source Name Type Date Date Clinician No Known DA Active [facility] Allergie 08-12 [place] 00:00: [address] Social History Social Habit Start Date Stop Date Quantity Comments Source Sex Assigned At [facility] Cigarettes smoked 2018-01-22 2018-01-22 [facility] - current (pack per 00:00:00 00:00:00 Medical Center day) - Reported Cigarette 2018-01-22 2018-01-[address] [facility] - pack-years 00:00:00 00:00:00 [facility] Center Tobacco use and 2018-01-22 2018-01-[address] [facility] Katerine kes - exposure 00:00:00 00:00:00 [facility] Center Alcohol intake 2018-01-22 2018-01-[address] [facility] - 00:00:00 00:00:00 non-drinker of Medical Ce nter alcohol (finding) Smoking Status Start Date Stop Date Source Current every day smoker 2018-01-22 00:00:[address] [facility] Center Medications Ordered Filled Start Stop Current [...] daily. Medica l 53 Center aspirin 81 2017-0 Yes 81mg QD Take [address] MG EC 9-20 by mouth [facility] - tablet 10:15: daily. Medical 53 Center esomeprazol 2017-0 Yes 20mg QD Take [address] e (NEXIUM) 9-20 by mouth [facility] - 20 MG 10:15: daily. Medical capsule 53 Center gabapentin 0 Yes 1200mg [id number] Take 1,[address] (NEURONTIN) 9-20 [id number] mg by L ukes - 600 MG [...] 53 (two) Center tablet times daily. traZODone 2018-0 Yes 100mg Take [address] (DESYREL) 9-20 mg by [facility] - 100 MG 10:15: mouth Medical tablet 53 every Center night as needed for Sleep. metOLazone Yes 5mg QD Take 5 mg CH [...] 00:00:00 measurement Medical Center (procedure) [code = 95100851] Future Scheduled 2014-11-[address] [facility] - Test 00:00:00 WELLNESS (YEAR 2 or Medical Center FIRST YEAR if no IPPE) [code = MEDICARE ANNUAL WELLNESS (YEAR 2 or FIRST YEAR if no IPPE)] Future Scheduled 2013 PNEUMOCOCCAL 65+ YRS [facility] - Test 00:00:00 (1 of 1 - Medical Center [id number] PCV13) [code = PNEUMOCOCCAL 65+ YRS (1 of 1 - [id number] PCV13)] Future Scheduled 1958 DIABETIC EYE EXAM [facility] - Test 00:00:00 [code = DIABETIC EYE Medical Center EXAM] Future Scheduled [address] [facility] - Test 00:00:00 examination Medical Center (regime/therapy) [code = 669791961] Future Scheduled 1958 Urine screening for [facility] - Test 00:00:00 protein (procedure) Medical Center [code = 392875215] Future Scheduled [address] [facility] - Test 00:00:00 malignant neoplasm of Medica l Center colon (procedure) [code = 583578917] Encounters Start End Encounter Admission Attending Care Care Encounter Source Date/Time Date/Time Type Type Clinicians Facility Department ID 2020-08-11 2020-08-11 Emergency Artemio [facility] [id number] 14:46:00 22:30:00 Samantha Rangel [id number] [place] [id number] [place] [id number] Results Test Description Test Time Test Comments Results Result Comments Source GLUCOSE BEDSIDE TESTING 2020-08-13 12:07:00 Test Item Value Reference Range Interpretation Comme nts GLUCOSE BEDSIDE TESTING (test code = GLUBED) 137 MG/DL 60-99 H GLYCOSYLATED HEMOGLOBIN [id number] 11:19:00 Test Item Value Reference Range Interpretation [...] H (test code = MBG) BASIC METABOLIC [id number] 07:59:00 Test Item Value Reference Range Interpretation [...] N CA) PATIENT REFUSED; PER ANTONIO Soto (RN)LIPID PROFILE (CORONARY RISK)2020-08-13 07:59:00 Test Item Value [...] PATIENT REFUSED; PER ANTONIO Soto (STEPHEN)BASIC METABOLIC [id number] 07:50:00 Test Item Value Reference Range Interpretation [...] PER ANTONIO Soto (STEPHEN)LIPID PROFILE (CORONARY RISK)2020-08-13 07:50:00 Test Item Value [...] LDL) PATIENT REFUSED; PER ANTONIO Soto (STEPHEN)PROTHROMBIN [id number] 07:46:00 Test Item Value Reference Range Interpretation [...] 3.0 - 4.5 PATIENT REFUSED; PER:ANTONIO MOORE)PTT [id number] 07:46:00 Test Item Value Reference Range Interpretation Comments PTT ACTIVATED (test code = APTT) 39.0 SECONDS 25.1-36.5 H PATIENT REFUSED; PER:ANTONIO Soto (RN)CBC W/AUTO [id number] 07:35:00 Test Item Value Reference Range Interpretation [...] PATIENT REFUSED; PER ANTONIO Soto (RN)GLUCOSE BEDSIDE [id number] 04:56:00 Test Item Value Reference Range Interpretation Comments GLUCOSE BEDSIDE TESTING (test code 123 MG/DL 60-99 H = GLUBED) GLUCOSE BEDSIDE [id number] 18:50:00 Test Item Value Reference Range Interpretation Comments GLUCOSE BEDSIDE TESTING (test code 221 MG/DL 60-99 H = GLUBED) GLUCOSE BEDSIDE [id number] 15:43:00 Test Item Value Reference Range Interpretation Comments GLUCOSE BEDSIDE TESTING (test code 126 MG/DL 60-99 H = GLUBED) GLUCOSE BEDSIDE [id number] 11:35:00 Test Item Value Reference Range Interpretation Comments GLUCOSE BEDSIDE TESTING (test code 161 MG/DL 60-99 H = GLUBED) GLYCOSYLATED HEMOGLOBIN [id number] 10:30:00 Test Item Value Reference Range Interpretation [...] H (test code = MBG) COMPREHENSIVE METABOLIC [id number] 09:27:00 Test Item Value Reference Range Interpretation [...] 38-126 N PHOSPHATASE (test code = ALKP) [id number] 09:27:00 Test Item Value Reference Range Interpretation Comments TROPONIN-I (test code = TROPI) 0.089 NG/ML 0.012-0.033 H T4 [id number] 09:07:00 Test Item Value Reference Range Interpretation Comments T4 FREE (test code = T4F) 1.5 NG/DL 0.78-2.19 N Specimen comments: please run from tsh previously drawnCOMPREHENSIVE METABOLIC [id number] 08:51:00 Test Item Value Reference Range Interpretation [...] 38-126 N PHOSPHATASE (test code = ALKP) [id number] 08:51:00 Test Item Value Reference Range Interpretation Comments TROPONIN-I (test code = TROPI) NG/ML 0.0-0.045 CBC W/AUTO [id number] 08:36:00 Test Item Value Reference Range Interpretation [...] 0.00 K/mm3 0.0-0.1 N NRBC#) GLUCOSE BEDSIDE [id number] 07:36:00 Test Item Value Reference Range Interpretation Comments GLUCOSE BEDSIDE TESTING (test code 178 MG/DL 60-99 H = GLUBED) URINALYSIS [id number] 04:39:00 Test Item Value Reference Range Interpretation [...] UACULT) Criteria SOURCE OF URINE: CLEAN CATCHURINALYSIS [id number] 04:35:00 Test Item Value Reference Range Interpretation [...] SOURCE OF URINE: CLEAN CATCHTSH REFLEX TO [id number] 04:06:00 Test Item Value Reference Range Interpretation Comments TSH REFLEX TO FT4 0.391 MIU/L 0.65-4.68 L Please be aware that (test code = bias results fo r TSH TSHREFLEX) may occur forpa tient who are taking Biotin supplements. [id number] 04:06:00 Test Item Value Reference Range Interpretation Comments MAGNESIUM (test code = MAG) 1.8 MG/DL 1.6-2.3 N LIPOPROTEIN LDL [id number] 04:06:00 Test Item Value Reference Range Interpretation Comments LIPOPROTEIN LDL DIRECT 92 mg/dL 100-129 L ===== (test code = LDLDIR) ======= ==Refe rence Interval: mg/dL mmol/L--------- ------ ------ ------ --Optimal <100 <2.6Near/abov e optimal 100-129 2.6-3.3Borderli ne High 130-159 3.4-4.1High 16 0-189 4.1-4.9Ve ry High >=190 >=4.9========= This LDL result is a direct measurement.=== ====== [id number] 04:06:00 Test Item Value Reference Range Interpretation Comments TROPONIN-I (test code = TROPI) 0.075 NG/ML 0.012-0.033 H [id number] 03:48:00 Test Item Value Reference Range Interpretation Comments MAGNESIUM (test code = MAG) 1.8 MG/DL 1.6-2.3 N LIPOPROTEIN LDL [id number] 03:48:00 Test Item Value Reference Range Interpretation Comments LIPOPROTEIN LDL DIRECT (test code = mg/dL 100-129 LDLDIR) [id number] 03:48:00 Test Item Value Reference Range Interpretation Comments TROPONIN-I (test code = TROPI) 0.075 NG/ML 0.012-0.033 H [id number] 03:38:00 Test Item Value Reference Range Interpretation Comments MAGNESIUM (test code = MAG) 1.8 MG/DL 1.6-2.3 N [id number] 03:38:00 Test Item Value Reference Range Interpretation Comments TROPONIN-I (test code = TROPI) NG/ML 0.0-0.045 GLUCOSE BEDSIDE [id number] 23:56:00 Test Item Value Reference Range Interpretation Comments GLUCOSE BEDSIDE TESTING (test code 211 MG/DL 60-99 H = GLUBED) HEMOGLOBIN [id number] 09:40:00 Test Item Value Reference Range Interpretation Comments HEMOGLOBIN A1C (GALE) (test code = 6.1 % 4.3-6.1 368) RAD, CHEST, 1 VIEW, NON [id number] 09:36:00Reason for exam:->sobShould this be performed at the bedside?->YesFINAL REPORT Chest one view compared to January 22 Discussion: There is cardiac prominence and interstitial congestion. There is linear opacity in both lower lungs. No effusionor pneumothorax. Signed: Denice Tran Verified Date/Time: 01/23/2018 09:36:57 Reading Location: [facility] Radiology Reading Room POCT-GLUCOSE [id number] 08:04:00 Test Item Value Reference Range Interpretation Comments POC-GLUCOSE METER 176 mg/dL 70-110 H TESTED AT [place] [address] (BEAKER) (test code = [place] 1538) [address] [id number] 06:49:00 Test Item Value Reference Range Interpretation Comments MAGNESIUM (BEAKER) 2.1 mg/dL 1.6-2.6 Specimen slightly (test code = 627) hemolyzed BASIC METABOLIC [id number] 06:49:00 Test Item Value Reference Range Interpretation [...] 697) EGFR (BEAKER) (test 67 mL/min/1.73 ESTIMA OTR GFR IS code = 1092) sq m NOT ACCURATE CREATININE CLEARANCE IN PREDICTING GLOMERULAR FILTRATION RATE . ESTIMATED GFR I S NOT APPLICABLE FOR DIALYSIS PATIEN TS. CBC W/PLT COUNT & AUTO [id number] 06:30:00 Test Item Value Reference Range Interpretation [...] % 0-1 PERCENT (BEAKER) (test code = 2809) POCT-GLUCOSE [id number] 22:19:00 Test Item Value Reference Range Interpretation Comments POC-GLUCOSE METER 235 mg/dL 70-110 H TESTED AT [facility] [address] ([facility]) (test code = [place] 1538) [address] TROPONIN [id number] 17:45:00 Test Item Value Reference Range Interpretation Comments [facility] (test code = 0.53 ng/mL 0.00-0.03 [facility]) Troponin I (TnI) levels must be interpreted [...] 0-100 H (BEAKER) (test code = 700) [id number] 17:35:00 Test Item Value Reference Range Interpretation Comments MAGNESIUM (BEAKER) (test code = 1.9 mg/dL 1.6-2.6 627) COMPREHENSIVE METABOLIC [id number] 17:35:00 Test Item Value Reference Range Interpretation [...] NOT APPLICABLE FOR DIALYSIS PATIEN TS. LIPID [id number] 17:35:00 Test Item Value Reference Range Interpretation [...] 160-189 Very High >=190LACTIC ACID, VENOUS, WHOLE [id number] 17:29:00 Test Item Value Reference Range Interpretation Comments LACTATE BLOOD VENOUS 1.0 mmol/L 0.5-2.2 Specime n slightly (2) (BEAKER) (test hemolyzed code = 2872) Effective 09/07/2015: Units/Reference Range ChangeNew: 0.5-2.2 mmol/L Previous: 5-20 mg/[id number] 17:29:00 Test Item Value Reference Range Interpretation Comments PARTIAL THROMBOPLASTIN TIME 46.7 seconds 22.5-36.0 H (BEAKER) (test code = 760) PROTHROMBIN [id number] 17:28:00 Test Item Value Reference Range Interpretation [...] = 2801) RAD, CHEST, 1 VIEW, NON [id number] 17:16:00Reason for exam:->sp acute respiratory failure/bronchospasmShould this [...] [place]eg[place] Verified Date/Time: 01/22/2018 17:16:12 Reading Location: [facility] Reading Room POCT-GLUCOSE [id number] 17:12:00 Test Item Value Reference Range Interpretation Comments POC-GLUCOSE METER 118 mg/dL 70-110 H TESTED AT [facility] [address] (BEAKER) (test code = [place] 1538) [address] BLOOD GAS, [id number] 16:35:00 Test Item Value Reference Range Interpretation [...] (test code = 1819) 32.0 % POCT-GLUCOSE [id number] 14:15:00 Test Item Value Reference Range Interpretation Comments POC-GLUCOSE METER 69 mg/dL 70-110 L Will Repea t Test/TESTED (BEAKER) (test code = AT [facility] [address] [facility] [place] [address] POCT-GLUCOSE [id number] 08:43:00 Test Item Value Reference Range Interpretation Comments POC-GLUCOSE METER 277 mg/dL 70-110 H TESTED AT [facility] [address] (BEAKER) (test code = [place]REE[place] [facility] 1538) [address] [id number] 06:20:00 Test Item Value Reference Range Interpretation Comments PHOSPHORUS (BEAKER) (test code = 3.3 mg/dL 2.3-4.7 604) [id number] 06:20:00 Test Item Value Reference Range Interpretation Comments MAGNESIUM (BEAKER) (test code = 1.8 mg/dL 1.6-2.6 627) BASIC METABOLIC [id number] 06:20:00 Test Item Value Reference Range Interpretation [...] PATIEN TS. CBC W/PLT COUNT & AUTO [id number] 06:09:00 Test Item Value Reference Range Interpretation [...] PERCENT (BEAKER) (test code = 2801) POCT-GLUCOSE [id number] 22:48:00 Test Item Value Reference Range Interpretation Comments POC-GLUCOSE METER 196 mg/dL 70-110 H TESTED AT [facility] [address] (BEAKER) (test code = [place] 1538) [address] POCT-GLUCOSE [id number] 17:21:00 Test Item Value Reference Range Interpretation Comments POC-GLUCOSE METER 122 mg/dL 70-110 H TESTED AT [facility] [address] (BEAKER) (test code = [place] 1538) [address] [id number] 13:13:00 Test Item Value Reference Range Interpretation Comments PHOSPHORUS (BEAKER) (test code = 2.4 mg/dL 2.3-4.7 604) BASIC METABOLIC [id number] 13:13:00 Test Item Value Reference Range Interpretation [...] S NOT APPLICABLE FOR DIALYSIS PATIEN TS. [id number] 13:08:00 Test Item Value Reference Range Interpretation Comments MAGNESIUM (BEAKER) (test code = 1.7 mg/dL 1.6-2.6 627) CBC W/PLT COUNT & AUTO [id number] 12:50:00 Test Item Value Reference Range Interpretation [...] PERCENT (BEAKER) (test code = 2801) POCT-GLUCOSE [id number] 12:42:00 Test Item Value Reference Range Interpretation Comments POC-GLUCOSE METER 174 mg/dL 70-110 H TESTED AT [facility] [address] (BEAKER) (test code = [place] [address]) [address] POCT-GLUCOSE [id number] 08:01:00 Test Item Value Reference Range Interpretation Comments POC-GLUCOSE METER 175 mg/dL 70-110 H TESTED AT [place] [address] ([facility]) (test code = [place] 1538) [address] RAD, CHEST, 1 VIEW, NON [id number] 03:44:00Reason for exam:->ptxShould this be performed at [...] MDReport Verified Date/Time: 11/18/2017 03:44:04 Reading Location: [address] Reading Room POCT- GLUCOSE [id number] 21:05:00 Test Item Value Reference Range Interpretation Comments POC-GLUCOSE METER 145 mg/dL 70-110 H TESTED AT [place] [address] ([facility]) (test code = [place] 1538) [address] POCT-GLUCOSE [id number] 17:19:00 Test Item Value Reference Range Interpretation Comments POC-GLUCOSE METER 129 mg/dL 70-110 H TESTED AT [place] [address] ([facility]) (test code = [place]REE[place] [facility] 1538) [address] POCT-GLUCOSE [id number] 12:12:00 Test Item Value Reference Range Interpretation Comments POC-GLUCOSE METER 194 mg/dL 70-110 H TESTED AT [place] [address] ([facility]) (test code = [place]REE[place] [facility] 1538) [address] POCT-GLUCOSE [id number] 07:30:00 Test Item Value Reference Range Interpretation Comments POC-GLUCOSE METER 171 mg/dL 70-110 H TESTED AT [place] [address] (BEAKER) (test code = BREE[place] [facility] 1538) [address] RAD, CHEST, 1 VIEW, NON [id number] 07:27:00Reason for exam:->ptxShould this be performed at [...] MDReport Verified Date/Time: 11/17/2017 07:27:16 Reading Location: [address] Consult Reading Room [id number] 07:19:00 Test Item Value Reference Range Interpretation Comments MAGNESIUM (BEAKER) (test code = 1.9 mg/dL 1.6-2.6 627) BASIC METABOLIC [id number] 07:19:00 Test Item Value Reference Range Interpretation [...] NOT APPLICABLE FOR DIALYSIS PATIEN TS. POCT-GLUCOSE [id number] 21:30:00 Test Item Value Reference Range Interpretation Comments POC-GLUCOSE METER 214 mg/dL 70-110 H TESTED AT [facility] [address] (BEAKER) (test code = [place] 1538) [address] URINALYSIS W/ REFLEX URINE [id number] 16:32:00 Test Item Value Reference Range Interpretation [...] = 2795) RAD, CHEST, 1 VIEW, NON [id number] 15:34:00Reason for exam:->ptxShould this be performed at [...] left sided chest tube. Signed: Boaz Esteban MDReport Verified Date/Time: 11/16/2017 15:34:49 Reading Location: [facility] [address] [facility] Reading Room POCT-GLUCOSE [id number] 12:10:00 Test Item Value Reference Range Interpretation Comments POC-GLUCOSE METER 203 mg/dL 70-110 H TESTED AT [place] [address] ([facility]) (test code = [place]REE[place] [facility] 1538) [address] POCT-GLUCOSE [id number] 08:21:00 Test Item Value Reference Range Interpretation Comments POC-GLUCOSE METER 181 mg/dL 70-110 H TESTED AT [place] [address] ([facility]) (test code = BREE[place] [facility] 1538) [address] RAD, CHEST, 1 VIEW, NON [id number] 08:03:00while patient is intubated or has chest [...] Tran Verified Date/Time: 11/16/2017 08:03:32 Reading Location: [address] Reading Room POCT-GLUCOSE [id number] 00:11:00 Test Item Value Reference Range Interpretation Comments POC-GLUCOSE METER 159 mg/dL 70-110 H TESTED AT [place] [address] ([facility]) (test code = [place]REE[place] [facility] 1538) [address] POCT-GLUCOSE [id number] 20:33:00 Test Item Value Reference Range Interpretation Comments POC-GLUCOSE METER 163 mg/dL 70-110 H TESTED AT [place] [address] ([facility]) (test code = BREEZ[place] [facility] 1538) [address] POCT-GLUCOSE [id number] 17:33:00 Test Item Value Reference Range Interpretation Comments POC-GLUCOSE METER 183 mg/dL 70-110 H TESTED AT [facility] [address] (BEAKER) (test code = [place] 1538) [address] URINE IMMUNOFIXATION, [id number] 17:17:00 Test Item Value Reference Range Interpretation Comments PROTEIN, URINE 30 mg/dL 0-14 H (BEAKER) (test code = 1569) ALBUMIN URINE ELP 61.4 % (BEAKER) (test code = 1018) GAMMA GLOBULIN URINE 38.6 % (BEAKER) (test code = 1015) URINE GERARD ID-[id number] No monoclonal proteins (AKER) (test code = or monoclonal free 2602) light chains detected. [id number] Raine Martin MD ([facility]) (test code = (electronic signature) 3301) RAD, CHEST, 1 VIEW, NON [id number] 13:19:00while patient is intubated or has chest tubes.Reason for exam:->PostopShould this be performed atthe bedside?->YesFINAL REPORT Chest one view compared to November 14 Discussion: Left chest tube, right IJ pulmonary catheter are noted. There is pulmonary congestion and right midlung linear atelectasis grossly similar. No gross effusion. Tiny left apical pneumothorax unchanged. Signed: Denice Tranort Verified Date/Time: 11/15/2017 13:19:28 Reading Location: [facility] Radiology ReadingRoom URINE PROTEIN ELECTROPHORESIS, RANDOM 2017-11-15 12:47:00 Test Item Value Reference Range Interpretation Comments PROTEIN, URINE 12 mg/dL 0-14 (BEAKER) (test code = 1569) ALBUMIN URINE ELP 61.4 % (BEAKER) (test code = 1018) GAMMA GLOBULIN URINE 38.6 % (BEAKER) (test code = 1015) UPEP, ID-[id number] ([facility]) No monoclonal bands (test code = 2604) detected. [id number] Raine Martin MD (BEAKER) (test code = (electronic signature) 5005) PROTEIN ELECTROPHORESIS, [id number] 12:29:00 Test Item Value Reference Range Interpretation [...] a hemolyzed sample. No monoclonal bands detected. [id number] Raine Martin MD (BEAKER) (test code = (electronic signature) 0638) PROTEIN TOTAL SERUM, 7.0 gm/dL 6.0-8.3 SPEP (BEAKER) (test code = 6000) BLOOD GAS, [id number] 08:21:00 Test Item Value Reference Range Interpretation [...] code = 1819) 20.0 % BASIC METABOLIC [id number] 08:03:00 Test Item Value Reference Range Interpretation [...] DIALYSIS PATIEN TS. LACTIC ACID, ARTERIAL, WHOLE [id number] 07:57:00 Test Item Value Reference Range Interpretation Comments LACTATE BLOOD ARTERIAL (2) 0.8 mmol/L 0.5-2.2 (BEAKER) (test code = 2874) Effective 09/07/2015: Units/Reference Range ChangeNew: 0.5-2.2 mmol/L Previous: 5-20 mg/[id number] 02:55:00 Test Item Value Reference Range Interpretation Comments PHOSPHORUS (BEAKER) (test code = 2.8 mg/dL 2.3-4.7 604) [id number] 02:55:00 Test Item Value Reference Range Interpretation Comments MAGNESIUM (BEAKER) (test code = 2.1 mg/dL 1.6-2.6 627) BASIC METABOLIC [id number] 02:55:00 Test Item Value Reference Range Interpretation [...] NOT APPLICABLE FOR DIALYSIS PATIEN TS. PROTHROMBIN [id number] 02:53:00 Test Item Value Reference Range Interpretation Comments PROTIME (BEAKER) (test code = 14.9 seconds 11.7-14.7 H 759) INR (BEAKER) (test code = 370) 1.2 <=5.9 RECOMMENDED COUMADIN/WARFARIN INR THERAPY RANGESSTANDARD DOSE: 2.0 - 3.0 Includes: PROPHYLAXIS forvenous thrombosis, systemic embolization; TREATMENT for venous thrombosis and/or pulmonary embolus.HIGH RISK: Target INR is 2.5-3.5 for patients with mechanical heart valves.[id number] 02:53:00 Test Item Value Reference Range Interpretation Comments PARTIAL THROMBOPLASTIN TIME 34.0 seconds 22.5-36.0 (BEAKER) (test code = 760) CBC W/PLT COUNT & AUTO [id number] 02:43:00 Test Item Value Reference Range Interpretation [...] PERCENT (BEAKER) (test code = 2801) PLATELET [id number] 02:35:00 Test Item Value Reference Range Interpretation Comments PLATELET COUNT (BEAKER) (test 167 K/CU MM 150-450 code = 756) GLUCOSE-STAT [id number] 02:32:00 Test Item Value Reference Range Interpretation Comments GLUCOSE RANDOM (BEAKER) (test code 112 mg/dL 70-110 H = 652) HGB/HCT (H&H) - STAT [id number] 02:32:00 Test Item Value Reference Range Interpretation Comments HEMOGLOBIN (BEAKER) (test code = 10.5 g/dL 13.0-16.8 L 410) HEMATOCRIT (BEAKER) (test code = 31.0 % 40.0-50.0 L 411) CALCIUM, [id number] 02:31:00 Test Item Value Reference Range Interpretation Comments CALCIUM IONIZED (BEAKER) (test 1.18 mmol/L 1.12-1.27 code = 698) PH, BLOOD (BEAKER) (test code = 7.38 1810) SODIUM NA-STAT [id number] 02:31:00 Test Item Value Reference Range Interpretation Comments SODIUM (BEAKER) (test code = 381) 137 meq/L 135-148 POTASSIUM-STAT [id number] 02:31:00 Test Item Value Reference Range Interpretation Comments POTASSIUM (BEAKER) (test code = 3.7 meq/L 3.6-5.5 379) POCT-GLUCOSE [id number] 00:40:00 Test Item Value Reference Range Interpretation Comments POC-GLUCOSE METER 129 mg/dL 70-110 H TESTED AT [place] [address] ([facility]) (test code = [facility] 1538) [address] POCT-GLUCOSE [id number] 00:40:00 Test Item Value Reference Range Interpretation Comments POC-GLUCOSE METER 143 mg/dL 70-110 H TESTED AT [place] [address] ([facility]) (test code = [facility] 1538) [address] POCT-GLUCOSE [id number] 21:41:00 Test Item Value Reference Range Interpretation Comments POC-GLUCOSE METER 179 mg/dL 70-110 H TESTED AT [place] [address] ([facility]) (test code = [facility] 1538) [address] BLOOD GAS, [id number] 19:39:00 Test Item Value Reference Range Interpretation [...] (test code = 1819) 40.0 % GLUCOSE-STAT [id number] 19:39:00 Test Item Value Reference Range Interpretation Comments GLUCOSE RANDOM (BEAKER) (test code 160 mg/dL 70-110 H = 652) HGB/HCT (H&H) - STAT [id number] 19:39:00 Test Item Value Reference Range Interpretation Comments HEMOGLOBIN (BEAKER) (test code = 11.0 g/dL 13.0-16.8 L 410) HEMATOCRIT (BEAKER) (test code = 32.0 % 40.0-50.0 L 411) SODIUM NA-STAT [id number] 19:37:00 Test Item Value Reference Range Interpretation Comments SODIUM (BEAKER) (test code = 381) 137 meq/L 135-148 POTASSIUM-STAT [id number] 19:37:00 Test Item Value Reference Range Interpretation Comments POTASSIUM (BEAKER) (test code = 4.0 meq/L 3.6-5.5 379) BLOOD GAS, [id number] 18:02:00 Test Item Value Reference Range Interpretation [...] arterial line present.RAD, CHEST, 1 VIEW, NON [id number] 17:20:00 Reason for exam:->PostopShould this be performed at the bedside?->YesFINAL REPORT EXAM: Frontal chest radiograph HISTORY PROVIDED: Postop COMPARISON: 11/13/2017 IMPRESSION:The tip of an endotracheal tube terminates 3.8 cm above the alexia. A right IJ approach [place]-Jun catheter has been placed with its tip [...] MDReport Verified Date/Time: 11/14/2017 17:20:20 Reading Location: [facility] Reading Room C METABOLIC [id number] 16:02:00 Test Item Value Reference Range Interpretation [...] S NOT APPLICABLE FOR DIALYSIS PATIEN TS. [id number] 16:02:00 Test Item Value Reference Range Interpretation Comments PHOSPHORUS (BEAKER) (test code = 2.3 mg/dL 2.3-4.7 604) [id number] 16:02:00 Test Item Value Reference Range Interpretation Comments MAGNESIUM (BEAKER) (test code = 2.6 mg/dL 1.6-2.6 627) LACTIC ACID, ARTERIAL, WHOLE [id number] 15:58:00 Test Item Value Reference Range Interpretation Comments LACTATE BLOOD 0.9 mmol/L 0.5-2.2 Specimen sligh tly ARTERIAL (2) (BEAKER) hemoly zed (test code = 2874) Effective 09/07/2015: Units/Reference Range ChangeNew: 0.5-2.2 mmol/L Previous: 5-20 mg/dLCBC W/PLT COUNT & AUTO [id number] 15:47:00 Test Item Value Reference Range Interpretation [...] (BEAKER) (test code = 2801) OXYGEN SATURATION, [id number] 15:37:00 Test Item Value Reference Range Interpretation Comments O2 SATURATION (MEASURED) (BEAKER) 55.5 % (test code = 1455) CALCIUM, [id number] 15:37:00 Test Item Value Reference Range Interpretation Comments CALCIUM IONIZED (BEAKER) (test 1.12 mmol/L 1.12-1.27 code = 698) PH, BLOOD (BEAKER) (test code = 7.41 1810) SODIUM NA-STAT [id number] 15:37:00 Test Item Value Reference Range Interpretation Comments SODIUM (BEAKER) (test code = 381) 138 meq/L 135-148 POTASSIUM-STAT [id number] 15:37:00 Test Item Value Reference Range Interpretation Comments POTASSIUM (BEAKER) (test code = 3.6 meq/L 3.6-5.5 379) BLOOD GAS, [id number] 15:37:00 Test Item Value Reference Range Interpretation [...] (test code = 1819) 60.0 % GLUCOSE-STAT [id number] 15:37:00 Test Item Value Reference Range Interpretation Comments GLUCOSE RANDOM (BEAKER) (test code 162 mg/dL 70-110 H = 652) HEMOGLOBIN-STAT [id number] 15:37:00 Test Item Value Reference Range Interpretation Comments HEMOGLOBIN (BEAKER) (test code = 11.2 g/dL 13.0-16.8 L 410) HGB/HCT (H&H) - STAT [id number] 15:37:00 Test Item Value Reference Range Interpretation Comments HEMOGLOBIN (BEAKER) (test code = 11.2 GM/DL 13.0-16.8 L 410) HEMATOCRIT (BEAKER) (test code = 33.0 % 40.0-50.0 L 411) [id number] 14:04:00 Test Item Value Reference Range Interpretation Comments ACTIVATED CLOTTING TIME 114 sec TEST ED AT [place] [address] ([facility]) (test code = [place] [address]) [address] [id number] 14:04:00 Test Item Value Reference Range Interpretation Comments ACTIVATED CLOTTING TIME 472 sec TEST ED AT [place] [address] ([facility]) (test code = [place] [address]) [address] [id number] 14:04:00 Test Item Value Reference Range Interpretation Comments ACTIVATED CLOTTING TIME 505 sec TEST ED AT [place] [address] ([facility]) (test code = [place] [address]) [address] [id number] 14:04:00 Test Item Value Reference Range Interpretation Comments ACTIVATED CLOTTING TIME 543 sec TEST ED AT [place] [address] ([facility]) (test code = [place] [address]) [address] CALCIUM, [id number] 13:58:00 Test Item Value Reference Range Interpretation Comments CALCIUM IONIZED (BEAKER) (test 1.11 mmol/L 1.12-1.27 L code = 698) PH, BLOOD (BEAKER) (test code = 7.36 1810) BLOOD GAS, [id number] 13:56:00 Test Item Value Reference Range Interpretation [...] (test code = 1819) 100.0 % GLUCOSE-STAT [id number] 13:56:00 Test Item Value Reference Range Interpretation Comments GLUCOSE RANDOM (BEAKER) (test code 167 mg/dL 70-110 H = 652) HGB/HCT (H&H) - STAT [id number] 13:56:00 Test Item Value Reference Range Interpretation Comments HEMOGLOBIN (BEAKER) (test code = 10.8 g/dL 13.0-16.8 L 410) HEMATOCRIT (BEAKER) (test code = 32.0 % 40.0-50.0 L 411) SODIUM NA-STAT [id number] 13:55:00 Test Item Value Reference Range Interpretation Comments SODIUM (BEAKER) (test code = 381) 136 meq/L 135-148 POTASSIUM-STAT [id number] 13:55:00 Test Item Value Reference Range Interpretation Comments POTASSIUM (BEAKER) (test code = 3.8 meq/L 3.6-5.5 379) BLOOD GAS, [id number] 12:54:00 Test Item Value Reference Range Interpretation [...] code = 1819) 65.0 % SODIUM NA-STAT [id number] 12:54:00 Test Item Value Reference Range Interpretation Comments SODIUM (BEAKER) (test code = 381) 134 meq/L 135-148 L GLUCOSE-STAT [id number] 12:54:00 Test Item Value Reference Range Interpretation Comments GLUCOSE RANDOM (BEAKER) (test code 158 mg/dL 70-110 H = 652) HGB/HCT (H&H) - STAT [id number] 12:54:00 Test Item Value Reference Range Interpretation Comments HEMOGLOBIN (BEAKER) (test code = 8.8 g/dL 13.0-16.8 L 410) HEMATOCRIT (BEAKER) (test code = 26.0 % 40.0-50.0 L 411) POTASSIUM-STAT [id number] 12:53:00 Test Item Value Reference Range Interpretation Comments POTASSIUM (BEAKER) (test code = 4.1 meq/L 3.6-5.5 379) BLOOD GAS, [id number] 12:20:00 Test Item Value Reference Range Interpretation [...] code = 1819) 60.0 % SODIUM NA-STAT [id number] 12:20:00 Test Item Value Reference Range Interpretation Comments SODIUM (BEAKER) (test code = 381) 134 meq/L 135-148 L GLUCOSE-STAT [id number] 12:20:00 Test Item Value Reference Range Interpretation Comments GLUCOSE RANDOM (BEAKER) (test code 187 mg/dL 70-110 H = 652) HGB/HCT (H&H) - STAT [id number] 12:20:00 Test Item Value Reference Range Interpretation Comments HEMOGLOBIN (BEAKER) (test code = 10.0 g/dL 13.0-16.8 L 410) HEMATOCRIT (BEAKER) (test code = 29.0 % 40.0-50.0 L 411) BLOOD GAS, [id number] 12:20:00 Test Item Value Reference Range Interpretation [...] (test code = 1819) 60.0 % POTASSIUM-STAT [id number] 12:18:00 Test Item Value Reference Range Interpretation Comments POTASSIUM (BEAKER) (test code = 3.5 meq/L 3.6-5.5 L 379) U/S, RENAL WITH [id number] 08:35:00Reason for exam:->INCLUDE DOPPLERS AND PVR- for [...] MDReport Verified Date/Time: 11/14/2017 08:35:40 Reading Location: [address] Ultrasound Reading Room POCT-GLUCOSE [id number] 07:34:00 Test Item Value Reference Range Interpretation Comments POC-GLUCOSE METER 190 mg/dL 70-110 H TESTED AT [facility] 67[facility] ([facility]) (test code = [place] [facility] 1538) [address] [id number] 05:19:00 Test Item Value Reference Range Interpretation Comments MAGNESIUM (BEAKER) (test code = 2.0 mg/dL 1.6-2.6 627) BASIC METABOLIC [id number] 05:19:00 Test Item Value Reference Range Interpretation [...] PATIEN TS. CBC W/PLT COUNT & AUTO [id number] 05:00:00 Test Item Value Reference Range Interpretation [...] 0-1 PERCENT (BEAKER) (test code = 2801) [id number] 01:56:00 Test Item Value Reference Range Interpretation Comments PARTIAL THROMBOPLASTIN TIME 69.0 seconds 22.5-36.0 H (BEAKER) (test code = 760) POCT-GLUCOSE [id number] 22:07:00 Test Item Value Reference Range Interpretation Comments POC-GLUCOSE METER 185 mg/dL 70-110 H TESTED AT [facility] 67[address] ([facility]) (test code = [place] 1538) [address] [id number] 18:43:00 Test Item Value Reference Range Interpretation Comments PARTIAL THROMBOPLASTIN TIME 45.2 seconds 22.5-36.0 H ([facility]) (test code = 760) [id number] 16:12:00 Test Item Value Reference Range Interpretation Comments THYROID STIMULATING HORMONE 0.53 uIU/mL 0.35-4.94 ([facility]) (test code = 772) RAD, CHEST, 1 VIEW, NON [id number] 15:33:00Reason for exam:->preopShould this be performed at the bedside?->YesFINAL REPORT EXAM: Frontal chest radiograph HISTORY PROVIDED: Preop COMPARISON: 11/12/2017 IMPRESSION:No focal consolidation, pneumothorax, or significant pleural fluid. The cardiomediastinal silhouette is within normal limits. No acute osseous abnormality. Degenerative changes of the spine are present. Signed: Clayton Banegas MDReport Verified Date/Time: 11/13/2017 15:33:28Reading Location: [facility] Mammo Reading Room Electronically signed by: CLAYTON BANEGAS on 11/03 03:33 [id number] 15:06:00 Test Item Value Reference Range Interpretation Comments PARTIAL THROMBOPLASTIN TIME 51.6 seconds 22.5-36.0 H ([facility]) (test code = 760) PROTHROMBIN [id number] 15:05:00 Test Item Value Reference Range Interpretation [...] INTERPRETATION (BEAKER) arachidonic acid (test code = 576190) suggests aspirin-like effect. [id number] Deven Mei MD (BEAKER) (test code = (mdhgunuycv 6500) signature) PLATELET COUNT AGG 243 K/CU MM 150-450 (BEAKER) (test code = 2656) Platelet aggregation results may be falsely low with platelet counts<100,000/CU MM.CREATININE, RANDOM [id number] 06:28:00 Test Item Value Reference Range Interpretation Comments CREATININE URINE (BEAKER) (test 114.6 mg/dL code = 375) Reference Range: No NormalsPROTEIN, RANDOM [id number] 06:28:00 Test Item Value Reference Range Interpretation Comments PROTEIN, URINE (BEAKER) (test code = 30 mg/dL 0-14 H 1569) PH, [id number] 05:47:00 Test Item Value Reference Range Interpretation Comments PH VENOUS (BEAKER) (test code = 701) 7.40 7.32-7.42 VITAMIN D, 08-[id number] 04:52:00 Test Item Value Reference Range Interpretation Comments VITAMIN D 25-OH (BEAKER) (test 36.5 ng/mL 6.6-49.9 code = 2764) Effective 02/13/2017: Reference Range ChangeNew: 6.6-49.9 ng/mL Previous: 13.0-47.8 ng/mLRecommended Vitamin D Target Range: 30.0-40.0 ng/mLPTH, INTACT 2017-11-13 04:25:00 Test Item Value Reference Range Interpretation Comments PARATHYROID HORMONE INTACT 91.7 pg/mL 8.5-72.5 H (BEAKER) (test code = 577) [id number] 04:21:00 Test Item Value Reference Range Interpretation Comments PARTIAL THROMBOPLASTIN TIME 53.6 seconds 22.5-36.0 H (BEAKER) (test code = 760) URIC [id number] 04:20:00 Test Item Value Reference Range Interpretation Comments URIC ACID (BEAKER) (test code = 9.0 mg/dL 2.6-7.2 H 773) [id number] 04:20:00 Test Item Value Reference Range Interpretation Comments MAGNESIUM (BEAKER) (test code = 2.0 mg/dL 1.6-2.6 627) [id number] 04:20:00 Test Item Value Reference Range Interpretation Comments PHOSPHORUS (BEAKER) (test code = 3.1 mg/dL 2.3-4.7 604) BASIC METABOLIC [id number] 04:20:00 Test Item Value Reference Range Interpretation [...] PATIEN TS. CBC W/PLT COUNT & AUTO [id number] 04:06:00 Test Item Value Reference Range Interpretation [...] EOSINOPHILS ABSOLUTE COUNT 0.40 K/ L 0.04-0.54 ([facility]) (test code = 416) BASOPHILS ABSOLUTE COUNT ([facility]) 0.09 K/ L 0.01-0.08 H (test code = 417) IMMATURE GRANULOCYTES-RELATIVE 1 % 0-1 PERCENT ([facility]) (test code = 2801) [id number] 22:34:00 Test Item Value Reference Range Interpretation Comments PARTIAL THROMBOPLASTIN TIME 49.5 seconds 22.5-36.0 H ([facility]) (test code = 760) POCT-GLUCOSE [id number] 21:55:00 Test Item Value Reference Range Interpretation Comments POC-GLUCOSE METER 179 mg/dL 70-110 H TESTED AT [place] [address] ([facility]) (test code = [facility] [facility] 1538) [address] RAD, CHEST, 1 VIEW, NON [id number] 17:03:00Reason for exam:->sobShould this be performed at the bedside?->YesFINAL REPORT CHEST AP PORTABLE History provided: Shortness of breath Comparison studies: None Heart size normal. Lungs grossly clear and vascularity normal. IMPRESSION: Grossly clear chest. Signed: Eboni Johnson MDReport Verified Date/Time: 11/12/2017 17:03:31 Reading Location: [address] Radiology Reading Room [id number] 15:41:00 Test Item Value Reference Range Interpretation Comments PARTIAL THROMBOPLASTIN TIME 41.3 seconds 22.5-36.0 H ([facility]) (test code = 760) POCT-GLUCOSE [id number] 11:50:00 Test Item Value Reference Range Interpretation Comments POC-GLUCOSE METER 218 mg/dL 70-110 H TESTED AT [facility] 67[address] ([facility]) (test code = [facility] [facility] 1538) [address] PLATELET AGGREGATION: FUNCTION [id number] 10:14:00 Test Item Value Reference Range Interpretation Comments WEAK ADP 82 % 60-91 RESULT([facility]) (test code = 2135) PLATELET FUNCTION 60-100% indicates This is a corrected SCREEN INTERP normal platelet result. Pre vious ([facility]) (test function result was 50 -59% code = 2173) indicates mild platelet dysfunction on 11/11/2017 at [address] [facility]-PATHOLOGIST- Deven Mei MD 7481 (BEAKER) (electronic (test code = signature) 7901) PLATELET COUNT 283 K/CU MM 150-450 AGG (BEAKER) (test code = 2656) TROPONIN [id number] 08:02:00 Test Item Value Reference Range Interpretation Comments TROPONIN I (BEAKER) (test code = 17.70 ng/mL 0.00-0.03 397) [...] failure, acidosis, acute neurological disease, and persistent tachyarrhythmia.[id number] 07:55:00 Test Item Value Reference Range Interpretation Comments PARTIAL THROMBOPLASTIN TIME 42.7 seconds 22.5-36.0 H (BEAKER) (test code = 760) [id number] 07:55:00 Test Item Value Reference Range Interpretation Comments MAGNESIUM (BEAKER) (test code = 2.3 mg/dL 1.6-2.6 627) BASIC METABOLIC [id number] 07:55:00 Test Item Value Reference Range Interpretation [...] PATIEN TS. CBC W/PLT COUNT & AUTO [id number] 07:49:00 Test Item Value Reference Range Interpretation [...] PERCENT (BEAKER) (test code = 2801) POCT-GLUCOSE [id number] 07:33:00 Test Item Value Reference Range Interpretation Comments POC-GLUCOSE METER 159 mg/dL 70-110 H TESTED AT [facility] 67[address] (BEAKER) (test code = [place] 1538) [address] [id number] 00:57:00 Test Item Value Reference Range Interpretation Comments PARTIAL THROMBOPLASTIN TIME 47.6 seconds 22.5-36.0 H (BEAKER) (test code = 760) [id number] 00:40:00 Test Item Value Reference Range Interpretation Comments MAGNESIUM (BEAKER) 2.3 mg/dL 1.6-2.6 Specimen slightly (test code = 627) hemolyzed BASIC METABOLIC [id number] 00:40:00 Test Item Value Reference Range Interpretation [...] NOT APPLICABLE FOR DIALYSIS PATIEN TS. POCT-GLUCOSE [id number] 21:57:00 Test Item Value Reference Range Interpretation Comments POC-GLUCOSE METER 162 mg/dL 70-110 H TESTED AT [facility] 6720 (BEAKER) (test code = [place] 1538) [address] HEMOGLOBIN [id number] 19:53:00 Test Item Value Reference Range Interpretation Comments HEMOGLOBIN A1C (BEAKER) (test code = 7.0 % 4.3-6.1 H 368) LIPID [id number] 18:10:00 Test Item Value Reference Range Interpretation [...] 130-159 High 160-189 Very High >=190BASIC METABOLIC [id number] 18:10:00 Test Item Value Reference Range Interpretation [...] APPLICABLE FOR DIALYSIS PATIEN TS. HEPATIC FUNCTION [id number] 18:10:00 Test Item Value Reference Range Interpretation [...] (test code = 24 U/L 6-55 347) [id number] 17:56:00 Test Item Value Reference Range Interpretation [...] PERCENT (BEAKER) (test code = 2801) POCT-GLUCOSE [id number] 16:49:00 Test Item Value Reference Range Interpretation Comments POC-GLUCOSE METER 128 mg/dL 70-110 H TESTED AT [facility] 6720 (BEAKER) (test code = [facility] [place] 1538) [address]
[2020-08-28 08:35] LABS: Protime INR 2.2
[2020-08-28 08:36] LABS: Basophils % 0.6 % (0-1.3); Hematocrit 38.6 % (39.6-49.0); Lymphocytes % 7.9 % (15.3-44.8)
[2020-08-28 08:37] LABS: Arterial Blood Carboxyhemoglob 2.9 % (0-1.5); Blood Gas Oxyhemoglobin 88.3 % (94-97); Blood O2 Saturation 91.8 % (92-98.5)
[2020-08-28 08:49] LABS: Albumin 3.4 g/dL (3.4-5.0); Bilirubin Direct 0.1 mg/dL (0-0.2); Bilirubin Total 0.6 mg/dL (0.2-1.0); Magnesium 1.8 mg/dL (1.8-2.4); Protein, Total 7.5 g/dL (6.4-8.2); Troponin (Emerg Dept Use Only) 0.03 ng/mL (0.0-0.045)
--- NOTE | 2020-08-28 10:31 | EDPHYS ---
Physician Documentation [facility] Name: Ludwin Hsu Age: 69 yrs Sex: Male : 1950 Arrival Date: 08/28/2020 Time: 07:53 Bed 4 Private MD: ED Physician Richard Fontana HPI: 08/28 09:16 This 69 yrs old Male presents to ER via EMS with complaints of Breathing pm1 Difficulty. 09:16 The patient has shortness of breath at rest. Onset: The symptoms/episode began/occurred pm1 this morning, at 06:00. Duration: The symptoms are continuous, but are markedly better than the original presentation, improved with treatment by EMS and Bipap on arrival to ER. The patient's shortness of breath is alleviated by nebulizer treatment, application of supplemental oxygen, Bipap. Associated signs and symptoms: Pertinent positives: productive cough, diaphoresis, Cough for 5 days, Pertinent negatives: chest pain, fever. Severity of symptoms: in the emergency department the symptoms have improved. The patient has experienced similar episodes in the past, several times. The patient has been recently seen at the [facility] Emergency Department, last week, for similar complaints labs were performed, X-rays were performed. Historical: - Allergies: 09:00 NKA; sv - Home Meds: 10:27 gabapentin 400 mg Oral cap 1 cap 3 times per day [Active]; losartan 50 mg oral tab 1 sv tab once daily [Active]; aripiprazole 30 mg oral tab 1 tab once daily [Active]; atorvastatin 40 mg oral tab 1 tab once daily [Active]; carvedilol 25 mg Oral tab 1 tab 2 times per day [Active]; glipizide 5 mg Oral tr24 2 tabs once daily [Active]; bupropion HCl 100 mg Oral tab daily [Active]; metformin 1,000 mg Oral tab 1 tab 2 times per day [Active]; Xarelto 20 mg oral tab 1 tab once daily [Active]; amiodarone 200 mg Oral tab [Active]; - PMHx: 09:00 arteriosclerosis; CHF; Diabetes - NIDDM; chronic back pain; COPD; Hypertension; sv Pancreatitis; kidney disease; PTSD; malignant neoplasm of epidimyis; Myocardial infarction; tinnitus; - PSHx: 09:00 heart bypass; sv - Immunization history:: Adult Immunizations. - Social history:: Smoking status: . ROS: 09:16 Constitutional: Negative for fever, chills, and weight loss, Neck: Negative for injury, pm1 pain, and swelling, Cardiovascular: Negative for chest pain, palpitations, and edema. 09:16 Abdomen/GI: Negative for abdominal pain, nausea, vomiting, diarrhea, and constipation, Back: Negative for injury and pain, MS/Extremity: Negative for injury and deformity, Skin: Negative for injury, rash, and discoloration. 09:16 Neuro: Negative for headache, weakness, numbness, tingling, and seizure. 09:16 Respiratory: Positive for cough, shortness of breath. Exam: 09:16 Head/Face: Normocephalic, atraumatic. pm1 09:16 Back: No spinal tenderness. No costovertebral tenderness. Full range of motion. Skin: Warm, dry with normal turgor. Normal color with no rashes, no lesions, and no evidence of cellulitis. MS/ Extremity: Pulses equal, no cyanosis. Neurovascular intact. Full, normal range of motion. 09:16 Constitutional: The patient appears in no acute distress, alert, awake, comfortable, non-diaphoretic, non-toxic, well developed, well hydrated, well groomed, well nourished, Patient already placed on bipap on my arrival to work and patient evaluation 09:16 Cardiovascular: Exam negative for acute changes, Rate: normal, Rhythm: regular, Pulses: no pulse deficits are appreciated, Heart sounds: normal. 09:16 Respiratory: Exam negative for acute changes, respiratory distress, wheezing, Breath sounds: rhonchi, are scattered. 09:16 Abdomen/GI: Inspection: obese Palpation: abdomen is soft and non-tender. 09:16 Neuro: Exam negative for acute changes, Orientation: is normal, Motor: is normal, moves all fours. Vital Signs: 07:52 BP 127 / 77; Pulse 89; Pulse Ox 94% on BiPAP; sv 07:55 BP 127 / 77; Pulse 80; Resp 20; Pulse Ox 97% on 40% BiPAP; sv 08:30 BP 121 / 72; Pulse 69; Resp 17; Pulse Ox 96% on 40% BiPAP; sv 09:30 BP 137 / 79; Pulse 65; Resp 15; Pulse Ox 99% on 40% BiPAP; sv 10:09 Temp 97.8(A); sv 10:30 BP 130 / 102; Pulse 66; Resp 16; Pulse Ox 100% on 40% BiPAP; sv 11:00 BP 116 / 60; Pulse 74; Resp 19; Pulse Ox 99% on 3 lpm NC; sv 12:18 BP 152 / 80; Pulse 74; Resp 16; Pulse Ox 99% on 3 lpm NC; sv MDM: 09:13 Patient medically screened. pm1 10:29 Data reviewed: vital signs. Data interpreted: Pulse oximetry: on room air is 99 %. pm1 Interpretation: normal. Counseling: I had a detailed discussion with the patient and/or guardian regarding: the historical points, exam findings, and any diagnostic results supporting the discharge/admit diagnosis, lab results, radiology results, the need for further work-up and treatment in the hospital. 11:12 Physician consultation: Jj Ramirez in the emergency department to see patient at pm1 11:12. 08/28 08:04 Order name: Basic Metabolic Panel; Complete Time: 09:13 sv 08/28 08:04 Order name: CBC with Diff; Complete Time: 09:13 sv 08/28 08:04 Order name: LFT's; Complete Time: 09:13 sv 08/28 08:04 Order name: Magnesium; Complete Time: 09:13 sv 08/28 08:04 Order name: NT PRO-BNP; Complete Time: 09:13 sv 08/28 08:04 Order name: PT-INR; Complete Time: 09:13 sv 08/28 08:04 Order name: Troponin (emerg Dept Use Only); Complete Time: 09:13 sv 08/28 08:04 Order name: ABG; Complete Time: 10:43 sv 08/28 10:25 Order name: Blood Culture Adult (2) pm1 08/28 10:58 Order name: Urine Dipstick-Ancillary; Complete Time: 11:07 EDMS 08/28 11:10 Order name: COVID-19/FLU A+B; Complete Time: 11:15 EDMS 08/28 08:04 Order name: XRAY Chest (1 view); Complete Time: 10:37 sv 08/28 08:04 Order name: EKG; Complete Time: 08:05 sv 08/28 08:04 Order name: Cardiac monitoring; Complete Time: 08:21 sv 08/28 08:04 Order name: EKG - Nurse/Tech; Complete Time: 08:58 sv 08/28 08:04 Order name: IV Saline Lock; Complete Time: : sv 08/28 08:04 Order name: Labs collected and sent; Complete Time: 08: sv 08/28 08:04 Order name: O2 Per Protocol; Complete Time: 08: sv 08/28 08:04 Order name: O2 Sat Monitoring; Complete Time: : sv 08/28 10:06 Order name: BIPAP eb Administered Medications: 10:24 CANCELLED (Physician Discretion): Lasix (furosemide) 40 mg IVP once; give over 2 minutespm1 10:58 Drug: Decadron - Dexamethasone 10 mg Route: IVP; Site: right wrist; sv 11:52 Follow up: Response: No adverse reaction sv 11:00 Drug: Rocephin - (cefTRIAXone) 1 grams Route: IVPB; Infused Over: 30 mins; Site: right sv wrist; 11:02 Follow up: Response: No adverse reaction; IV Status: Completed infusion; IV Intake: 10mlsv 11:52 Drug: Zithromax (azithromycin) 500 mg Route: IVPB; Infused Over: 1 hrs; Site: right sv wrist; 12:52 Follow up: IV Status: Completed infusion; IV Intake: 250ml sv Disposition: 17:19 Co-signature as Attending Physician, Richard Fontana MD. pravin Disposition: 08/28/20 10:30 Hospitalization ordered by Jj Ramirez for Inpatient Admission. Preliminary diagnosis is Chronic obstructive pulmonary disease with (acute) exacerbation. - Bed requested for Telemetry/MedSurg (Inpatient). - Status is Inpatient Admission. ss - Condition is Stable. - Problem is new. - Symptoms have improved. Signatures: Dispatcher [employer] EDMS Ashley Martinez RN RN sv Lam, Pin, MD MD pkSindy Rodriguez RN RN ss Cruz Duarte, DOCUMENTATION LIAISON DOCUMENTATION LIAISON pm1 Raine Hyde Corrections: (The following items were deleted from the chart) 10: 09:16 Influenza Screen (A \T\ B)+BA.LAB.BRZ ordered. EDMS EDMS 10: 09:31 CORONAVIRUS+MR.LAB.BRZ ordered. EDMS EDMS 10:24 10:22 Lasix (furosemide) 40 mg IVP once; give over 2 minutes ordered. pm1 pm1 10:37 09:16 Associated signs and symptoms: Pertinent positives: diaphoresis, Cough for 5 pm1 days, Pertinent negatives: chest pain, fever, pm1 11:17 10:30 Hospitalization Ordered by Topher Yuen MD for Inpatient Admission. Preliminary pm1 diagnosis is Chronic obstructive pulmonary disease with (acute) exacerbation. Bed requested for Telemetry/MedSurg (Inpatient). Status is Inpatient Admission. Condition is Stable. Problem is new. Symptoms have improved. pm1 13:45 11:17 08/28/2020 10:30 Hospitalization Ordered by Jj Ramirez for Inpatient eb Admission. Preliminary diagnosis is Chronic obstructive pulmonary disease with (acute) exacerbation. Bed requested for Telemetry/MedSurg (Inpatient). Status is Inpatient Admission. Condition is Stable. Problem is new. Symptoms have improved. pm1 15:05 13:45 08/28/2020 10:30 Hospitalization Ordered by Jj Ramirez for Inpatient ss Admission. Preliminary diagnosis is Chronic obstructive pulmonary disease with (acute) exacerbation. Bed requested for Telemetry/MedSurg (Inpatient). Status is Inpatient Admission. Condition is Stable. Problem is new. Symptoms have improved. eb
--- NOTE | 2020-08-28 10:31 | ER ---
Nurse's Notes [facility] Name: Ludwin Hsu Age: 69 yrs Sex: Male : 1950 Arrival Date: 08/28/2020 Time: 07:53 Bed 4 Private MD: Diagnosis: Chronic obstructive pulmonary disease with (acute) exacerbation Presentation: 08/28 07:52 Acuity: NGUYEN 1 sv 07:52 Chief complaint: EMS states: called out for dyspnea, diaphoretic, labored breathing sv since 0600 today. On EMS arrival pt had upper lobe wheezing, BS-207 81% RA, A\T\A treatment given and O2 sat up to 88% and then placed on 100% NRB. Risk Assessment: Do you want to hurt yourself or someone else? Patient reports no desire to harm self or others. Onset of symptoms was August 28, 2020. 07:52 Method Of Arrival: EMS: [facility] sv 07:52 Coronavirus screen: Client denies travel out of the [place] in the last 14 days. At this sv time, the client does not indicate any symptoms associated with coronavirus-19. Ebola Screen: No symptoms or risks identified at this time. Initial Sepsis Screen: Does the patient meet any 2 criteria? No. Patient's initial sepsis screen is negative. Does the patient have a suspected source of infection? No. Patient's initial sepsis screen is negative. Triage Assessment: 07:52 General: Appears in no apparent distress. uncomfortable, well developed, Behavior is sv calm, cooperative, appropriate for age. Pain: Denies pain. Neuro: Level of Consciousness is awake, alert, obeys commands, Oriented to person, place, time, situation, Moves all extremities. Full function. Cardiovascular: Rhythm is sinus rhythm. Respiratory: Airway is patent Respiratory effort is even, labored, Respiratory pattern is symmetrical, tachypnea. Respiratory: Reports shortness of breath labored breathing. Derm: Skin is intact, Skin is pink, warm \T\ dry. Musculoskeletal: Range of motion: intact in all extremities. Historical: - Allergies: 09:00 NKA; sv - Home Meds: 10:27 gabapentin 400 mg Oral cap 1 cap 3 times per day [Active]; losartan 50 mg oral tab 1 sv tab once daily [Active]; aripiprazole 30 mg oral tab 1 tab once daily [Active]; atorvastatin 40 mg oral tab 1 tab once daily [Active]; carvedilol 25 mg Oral tab 1 tab 2 times per day [Active]; glipizide 5 mg Oral tr24 2 tabs once daily [Active]; bupropion HCl 100 mg Oral tab daily [Active]; metformin 1,000 mg Oral tab 1 tab 2 times per day [Active]; Xarelto 20 mg oral tab 1 tab once daily [Active]; amiodarone 200 mg Oral tab [Active]; - PMHx: 09:00 arteriosclerosis; CHF; Diabetes - NIDDM; chronic back pain; COPD; Hypertension; sv Pancreatitis; kidney disease; PTSD; malignant neoplasm of epidimyis; Myocardial infarction; tinnitus; - PSHx: 09:00 heart bypass; sv - Immunization history:: Adult Immunizations. - Social history:: Smoking status: . Screenin:00 Abuse screen: Denies threats or abuse. Denies injuries from another. Nutritional sv screening: No deficits noted. Tuberculosis screening: No symptoms or risk factors identified. Fall Risk None identified. Assessment: 07:52 Reassessment: Nancy RT at bedside to place pt on BIPAP. sv 09:00 Reassessment: Patient appears in no apparent distress at this time. Patient and/or sv family updated on plan of care and expected duration. Pain level reassessed. Patient is alert, oriented x 3, equal unlabored respirations, skin warm/dry/pink. Patient states symptoms have improved. 10:09 Reassessment: Patient appears in no apparent distress at this time. Patient and/or sv family updated on plan of care and expected duration. Pain level reassessed. Patient is alert, oriented x 3, equal unlabored respirations, skin warm/dry/pink. Patient states symptoms have improved. 10:45 Reassessment: Patient appears in no apparent distress at this time. Patient and/or sv family updated on plan of care and expected duration. Pain level reassessed. Patient is alert, oriented x 3, equal unlabored respirations, skin warm/dry/pink. Patient states symptoms have improved. 11:13 Reassessment: Dr Ramirez at the bedside. sv 11:18 Reassessment: Nancy took pt off of BIPAP and placed on O2 \T\ 3L per NC per Dr Ramirez sv request. 12:17 Reassessment: Called and spoke with Dr Ramirez to get admission orders placed, he stated sv he would do it at this time. 14:05 Reassessment: Attempted to call report, nurse unavailable. sv 14:48 Reassessment: Report called to STEPHEN Huang on second floor. Awaiting for registration to bring new wrist band prior to transport upstairs. RT paged to bring BIPAP with patient upstairs to use PRN. Vital Signs: 07:52 BP 127 / 77; Pulse 89; Pulse Ox 94% on BiPAP; sv 07:55 BP 127 / 77; Pulse 80; Resp 20; Pulse Ox 97% on 40% BiPAP; sv 08:30 BP 121 / 72; Pulse 69; Resp 17; Pulse Ox 96% on 40% BiPAP; sv 09:30 BP 137 / 79; Pulse 65; Resp 15; Pulse Ox 99% on 40% BiPAP; sv 10:09 Temp 97.8(A); sv 10:30 BP 130 / 102; Pulse 66; Resp 16; Pulse Ox 100% on 40% BiPAP; sv 11:00 BP 116 / 60; Pulse 74; Resp 19; Pulse Ox 99% on 3 lpm NC; sv 12:18 BP 152 / 80; Pulse 74; Resp 16; Pulse Ox 99% on 3 lpm NC; sv ED Course: 07:52 Maintain EMS IV. Dressing intact. Site clean \T\ dry. Gauge \T\ site: 20 G R wrist. sv 07:53 Patient arrived in ED. mg2 07:55 Ashley Martinez, STEPHEN is Primary Nurse. sv 08:00 Triage completed. sv 08:00 Arm band placed on. sv 08:00 Patient has correct armband on for positive identification. Bed in low position. Call light in reach. Side rails up X2. residential monitor on. Pulse ox on. NIBP on. 08:15 Initial lab(s) drawn, by me, sent to lab. Missed attempt(s): 20 gauge in right sv antecubital area. Bleeding controlled, band aid applied, catheter tip intact. 08:31 EKG done, by ED staff, reviewed by Richard Fontana MD. sv 08:57 XRAY Chest (1 view) In Process Unspecified. EDMS 09:07 Cruz Duarte NP is PHCP. pm1 09:08 Richard Fontana MD is Attending Physician. pm1 10:09 COVID swab sent to lab. Flu and/or RSV swab sent to lab. sv 10:30 Topher Yuen MD is Hospitalizing Provider. pm1 10:33 BIPAP Sent. sv 10:45 First set of blood cultures drawn by me. sv 10:55 Second set of blood cultures drawn by me. sv 11:17 Hospitalizing Provider role handed off by Topher Yuen MD pm1 11:17 Jj Ramirez is Hospitalizing Provider. pm1 Administered Medications: 10:24 CANCELLED (Physician Discretion): Lasix (furosemide) 40 mg IVP once; give over 2 minutespm1 10:58 Drug: Decadron - Dexamethasone 10 mg Route: IVP; Site: right wrist; sv 11:52 Follow up: Response: No adverse reaction sv 11:00 Drug: Rocephin - (cefTRIAXone) 1 grams Route: IVPB; Infused Over: 30 mins; Site: right sv wrist; 11:02 Follow up: Response: No adverse reaction; IV Status: Completed infusion; IV Intake: 10mlsv 11:52 Drug: Zithromax (azithromycin) 500 mg Route: IVPB; Infused Over: 1 hrs; Site: right sv wrist; 12:52 Follow up: IV Status: Completed infusion; IV Intake: 250ml sv Intake: 11:02 IV: 10ml; Total: 10ml. sv 12:52 IV: 250ml; Total: 260ml. sv Output: 11:05 Urine: 600ml (Voided); Total: 600ml. sv Outcome: 10:30 Decision to Hospitalize by Provider. pm1 15:05 Patient left the ED. ss Signatures: Dispatcher [employer] Ashley Cervantes RN RN sv Sindy Schwartz RN RN ss Cruz uDarte, VP EMERGING MEDIA VP EMERGING MEDIA pm1 Liza Irvin RN RN Clifford Cross RN RN mg2
--- NOTE | 2020-08-28 10:36 | RAD REPORT ---
EXAM DESCRIPTION: [facility] Single View08/28/2020 9:00 am CLINICAL HISTORY: Shortness breath COMPARISON: August 22 2020 FINDINGS: The lungs appear clear of acute infiltrate. The heart is mildly to moderately enlarged. S mall pleural effusions Postsurgical changes involve the chest. IMPRESSION: No acute abnormalities displayed
[2020-08-28] MEDS ORDERED: dexAMETHasone 10 MG/ML VIAL ONE (10:55)
[2020-08-28] MEDS ORDERED: CEFTRIAXONE/SWI 1gm 1 GM/10 ML SYR ONE (10:56)
[2020-08-28 10:59] LABS: Urine Blood Negative (Negative); Urine Glucose Negative (Negative); Urine Protein Negative (Negative); Urine pH 6.5 (5.0-7.0)
[2020-08-28 11:10] LABS: SARS-COV-2 RT PCR NEGATIVE (NEGATIVE)
[2020-08-28] MEDS ORDERED: AZITHROMYCIN IV 500 MG in NA CHLORIDE 0.9% 250 ML IVPB ONE (12:00)
--- NOTE | 2020-08-28 12:38 | P.HP ---
Certification for Inpatient Patient admitted to: Inpatient With expected LOS: >2 Midnights Practitioner: I am a practitioner with admitting privileges, knowledge of patient current condition, hospital course, and medical plan of care. Services: Services provided to patient in accordance with Admission requirements found in Title 42 Section 412.3 of the Code of Federal Regulations Patient History Date of Service: 08/28/20 Reason for admission: Shortness of breath History of Present Illness: 69-year-old gentleman with a history of COPD, systolic heart failure, EF of 30%, current smoker, DM type 2 was brought to the emergency department due to shortness of breath. Patient reports progressive shortness of breath of a few days duration. EMS found him with an oxygen saturation in the low 80s. Patient was placed on 100% non-rebreather and brought to the emergency department. He was placed on BiPAP here. Chest x-ray demonstrates no acute infiltrate or pulmonary edema. He has mild leukocytosis. Patient diagnosis COPD exacerbation. Patient was transitioned to 3 L oxygen by nasal canula with SaO2 at 95%. BNP elevated. Initial troponin is negative. Patient admitted for further management. Allergies No Known Allergies Allergy (Verified 08/28/20 15:19) Home Medications: Gabapentin [Neurontin*] 1,200 mg PO TID 12/02/16 Aspirin 81 mg PO DAILY 11/10/17 carvediloL [Coreg*] 25 mg PO BID 11/10/17 glipiZIDE [Glucotrol] 10 mg PO DAILY 11/10/17 Metformin ER [Glucophage ER*] 1,000 mg PO BID 02/17/18 Amiodarone HCl 100 mg PO BID 08/28/20 Aripiprazole [Abilify] 30 mg PO DAILY 08/28/20 Atorvastatin Calcium [Lipitor] 40 mg PO BEDTIME 08/28/20 Furosemide [Lasix*] 40 mg PO DAILY 08/28/20 Losartan Potassium [Cozaar] 50 mg PO DAILY 08/28/20 Losartan Potassium [Cozaar] 50 mg PO DAILY 08/28/20 Rivaroxaban [Xarelto] 20 mg PO DAILY 08/28/20 buPROPion HCL [Bupropion HCl] 100 mg PO DAILY 08/28/20 - Past Medical/Surgical History Diabetic: Yes -: Hypertension -: Diabetes mellitus type 2 -: Posttraumatic stress disorder -: Anxiety -: Hepatitis-C -: Hyperlipidemia -: CAD, stent placement x2 -: Obstructive sleep apnea -: Obesity -: Diabetic neuropathy -: History pancreatitis -: COPD, tobacco abuse -: 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 - Family History Father -: Other (see notes) Notes: CHF Mother -: Cancer Notes: breast cancer Sister -: Cancer Notes: colon cancer Brother -: Cancer Notes: throat cancer - Social History Smoking Status: Current every day smoker Alcohol use: No CD- Drugs: No Caffeine use: Yes Review of Systems Other: Except as documented, all other systems reviewed and negative. Physical Examination - Physical Exam General: Alert, In no apparent distress, Oriented x3 HEENT: Mucous membr. moist/pink Neck: Supple, JVD not distended Respiratory: Diminished (Bilateral, no crackles.) Cardiovascular: No edema, Normal S1 S2, Irregular heart rate/rhythm Gastrointestinal: Normal bowel sounds, Soft and benign, Non-distended, No tenderness Musculoskeletal: No swelling, No tenderness Integumentary: No rashes, No erythema Neurological: Normal speech, Normal strength at 5/5 x4 extr - Studies Laboratory Data (last 24 hrs) 08/28/20 08:10: PT 25.5 H, INR 2.20 08/28/20 08:10: WBC 12.30 H D, Hgb 12.5 L, Hct 38.6 L, Plt Count 208 08/28/20 08:10: Sodium 141, Potassium 4.0, BUN 20 H, Creatinine 1.39 H, Glucose 185 H, Magnesium 1.8, Total Bilirubin 0.6, AST 15, ALT 20, Alkaline Phosphatase 98 Assessment and Plan - Problems (Diagnosis) (1) Acute exacerbation of chronic obstructive airways disease Onset Date: 02/18/18 Current Visit: No Status: Acute (2) Acute on chronic diastolic (congestive) heart failure Onset Date: 05/07/17 Current Visit: No Status: Acute (3) Diabetes mellitus Onset Date: 12/03/16 Current Visit: No Status: Chronic (4) Tobacco abuse Current Visit: No Status: Chronic (5) Chronic kidney disease, stage 3 Current Visit: Yes Status: Acute (6) Acute respiratory failure with hypoxia Current Visit: Yes Status: Acute - Plan Admit patient to the medical floor. Start treatment for COPD exacerbation with IV Solu-Medrol, scheduled bronchodilators, IV Rocephin and Zithromax for infective bronchitis. Will also treat for CHF exacerbation with IV Lasix. Validate and reconcile home medications. Monitor renal function on IV Lasix. Trend troponin Titrate oxygen. Keep SaO2 between 90-92% to preserve hypoxic drive. - Advance Directives Does patient have a Living Will: No Does patient have a Durable POA for Healthcare: No
[2020-08-28] MEDS: ALBUTEROL 2.5 MG/3 ML NEB SOL NEB SCH ×2 (15:32→20:00)
[2020-08-28] MEDS ORDERED: ACETAMINOPHEN 500 MG TAB PO PRN (15:32)
[2020-08-28] MEDS ORDERED: ONDANSETRON 4 MG/2 ML VIAL IV PRN (15:32)
[2020-08-28] MEDS: IPRATROPIUM BROM 0.5MG/2.5ML NEB SCH ×2 (16:15→20:00)
[2020-08-28] MEDS: INSULIN -REGULAR HUMAN 50 UNIT/0.5 ML ML SQ SCH ×2 (16:30→21:06)
[2020-08-28] MEDS ORDERED: ENOXAPARIN 100 MG/ML SYR SQ ONE (17:18)
[2020-08-28] MEDS: METHYLPREDNISOLONE 40 MG INJ IV SCH ×2 (17:19→23:45)
[2020-08-28] MEDS: FUROSEMIDE 40 MG/4 ML VIAL IV SCH (17:19)
[2020-08-28] MEDS: carvediloL 25 MG TAB PO SCH (23:45)
[2020-08-29] MEDS: IPRATROPIUM BROM 0.5MG/2.5ML NEB SCH ×3 (00:10→08:00)
[2020-08-29] MEDS: ALBUTEROL 2.5 MG/3 ML NEB SOL NEB SCH ×2 (02:00→08:00)
[2020-08-29] MEDS: METHYLPREDNISOLONE 40 MG INJ IV SCH (05:45)
[2020-08-29 05:52] VITALS: BMI 34.6
[2020-08-29 06:19] LABS: Absolute Lymphocytes (CBC) 0.6 K/uL (0.7-4.9); Basophils % 0.1 % (0-1.3); Hematocrit 38.9 % (39.6-49.0); Lymphocytes % 5.3 % (15.3-44.8); MPV 9.1 fL (7.6-11.3); RBC Red Blood Cell Count 4.48 M/uL (4.33-5.43)
[2020-08-29 06:44] LABS: Albumin 3.2 g/dL (3.4-5.0); Bilirubin Total 0.5 mg/dL (0.2-1.0); Phosphorus 3.4 mg/dL (2.5-4.9); Protein, Total 7.1 g/dL (6.4-8.2); Thyroid Stimulating Hormone 0.375 uIU/mL (0.360-3.740)
[2020-08-29] MEDS: INSULIN -REGULAR HUMAN 50 UNIT/0.5 ML ML SQ SCH (07:30)
[2020-08-29 08:20] LABS: Platelet Estimate ADEQ
[2020-08-29 08:21] LABS: Blood Morphology Comment NOT SEEN (NOT SEEN)
[2020-08-29] MEDS ORDERED: AMIODARONE HCL 200 MG TAB PO SCH (09:00)
[2020-08-29] MEDS ORDERED: GABAPENTIN 400 MG CAP PO SCH (09:00)
[2020-08-29] MEDS ORDERED: AZITHROMYCIN IV 500 MG in NA CHLORIDE 0.9% 250 ML IVPB SCH (09:00)
[2020-08-29] MEDS ORDERED: NICOTINE 21 MG/PAT TD SCH (09:00)
[2020-08-29] MEDS ORDERED: ARIPiprazole 5 MG TAB PO SCH (09:00)
[2020-08-29] MEDS ORDERED: LOSARTAN POTASSIUM 50 MG TABLET PO SCH (09:00)
[2020-08-29] MEDS ORDERED: ENOXAPARIN 40 MG/0.4 ML SQ SCH (09:00)
[2020-08-29] MEDS ORDERED: CEFTRIAXONE 1 GM/NS 50 ML 1 GM/50 ML BAG IV SCH (09:00)
[2020-08-29] MEDS ORDERED: CEFTRIAXONE/SWI 1gm 1 GM/10 ML SYR IV SCH (09:00)
[2020-08-29 09:06] VITALS: BP 186/81; TEMP 96.8
[2020-08-29] MEDS: carvediloL 25 MG TAB PO SCH (09:36)
[2020-08-29] MEDS: FUROSEMIDE 40 MG/4 ML VIAL IV SCH (09:36)
--- NOTE | 2020-08-29 10:32 | P.DS ---
Admission Date: 08/28/20 Discharge Date: 08/29/20 Disposition: ROUTINE DISCHARGE Discharge Condition: FAIR Reason for Admission: Shortness of breath - Problems (1) Acute exacerbation of chronic obstructive airways disease Onset Date: 02/18/18 Status: Acute (2) Acute on chronic diastolic (congestive) heart failure Onset Date: 05/07/17 Status: Acute (3) Diabetes mellitus Onset Date: 12/03/16 Status: Chronic (4) Tobacco abuse Status: Chronic (5) Chronic kidney disease, stage 3 Status: Acute (6) Acute respiratory failure with hypoxia Status: Acute Brief History of Present Illness: 69-year-old gentleman with a history of COPD, systolic heart failure, EF of 30%, current smoker, DM type 2 was brought to the emergency department due to shortness of breath. Patient reports progressive shortness of breath of a few days duration. EMS found him with an oxygen saturation in the low 80s. Patient was placed on 100% non-rebreather and brought to the emergency department. He was placed on BiPAP here. Chest x-ray demonstrates no acute infiltrate or pulmonary edema. He has mild leukocytosis. Patient diagnosed with COPD exacerbation. Patient was transitioned to 3 L oxygen by nasal canula with SaO2 at 95%. BNP elevated. Initial troponin negative. Patient admitted for further management. Hospital Course: Patient admitted to the medical floor and treated for COPD exacerbation with IV Solu-Medrol, scheduled bronchodilators. Of note, chest x-ray did not show any acute infiltrate. Patient also treated for CHF exacerbation with IV Lasix. He rapidly improved to treatment. Oxygen was weaned off. Patient seen by physical therapy. He ambulated without shortness of breath and his oxygen saturation with exertion was 97%. Patient has clinically improved and deemed stable for discharge. He is prescribed nebulizer treatments, prednisone and Zithromax for COPD exacerbation. He will continue his oral Lasix maintenance 40 mg daily. Vital Signs/Physical Exam: Temp Pulse Resp BP Pulse Ox 96.8 F 68 19 186/81 H 99 08/29/20 08:00 08/29/20 08:00 08/29/20 08:00 08/29/20 08:00 08/29/20 08:00 General: Alert, In no apparent distress, Oriented x3 HEENT: Mucous membr. moist/pink Neck: JVD not distended Respiratory: Clear to auscultation bilaterally, Normal air movement Cardiovascular: No edema, Normal S1 S2, Irregular heart rate/rhythm Gastrointestinal: Normal bowel sounds, Soft and benign, Non-distended, No tenderness Musculoskeletal: No swelling, No tenderness Integumentary: No rashes, No erythema Neurological: Normal strength at 5/5 x4 extr Laboratory Data at Discharge: WBC 11.00 K/uL (4.3-10.9) H 08/29/20 05:55 Hgb 12.7 g/dL (13.6-17.9) L 08/29/20 05:55 Hct 38.9 % (39.6-49.0) L 08/29/20 05:55 Plt Count 202 K/uL (152-406) 08/29/20 05:55 PT 25.5 SECONDS (9.5-12.5) H 08/28/20 08:10 INR 2.20 08/28/20 08:10 Sodium 140 mmol/L (136-145) 08/29/20 05:55 Potassium 4.0 mmol/L (3.5-5.1) 08/29/20 05:55 BUN 26 mg/dL (7-18) H 08/29/20 05:55 Creatinine 1.23 mg/dL (0.55-1.3) 08/29/20 05:55 Glucose 164 mg/dL (74-106) H 08/29/20 05:55 Phosphorus 3.4 mg/dL (2.5-4.9) 08/29/20 05:55 Magnesium 2.0 mg/dL (1.8-2.4) 08/29/20 05:55 Total Bilirubin 0.5 mg/dL (0.2-1.0) 08/29/20 05:55 AST 10 U/L (15-37) L 08/29/20 05:55 ALT 19 U/L (12-78) 08/29/20 05:55 Alkaline Phosphatase 95 U/L (45-117) 08/29/20 05:55 Troponin I 0.03 ng/mL (0.0-0.045) 08/28/20 23:50 Triglycerides 61 mg/dL (<150) 08/29/20 05:55 Cholesterol 152 mg/dL (<200) 08/29/20 05:55 HDL Cholesterol 35 mg/dL (40-60) L 08/29/20 05:55 Cholesterol/HDL Ratio 4.34 08/29/20 05:55 Home Medications: Gabapentin [Neurontin*] 1,200 mg PO TID 12/02/16 Aspirin 81 mg PO DAILY 11/10/17 carvediloL [Coreg*] 25 mg PO BID 11/10/17 glipiZIDE [Glucotrol] 10 mg PO DAILY 11/10/17 Metformin ER [Glucophage ER*] 1,000 mg PO BID 02/17/18 Amiodarone HCl 100 mg PO BID 08/28/20 Aripiprazole [Abilify] 30 mg PO DAILY 08/28/20 Atorvastatin Calcium [Lipitor] 40 mg PO BEDTIME 08/28/20 Furosemide [Lasix*] 40 mg PO DAILY 08/28/20 Losartan Potassium [Cozaar] 50 mg PO DAILY 08/28/20 Rivaroxaban [Xarelto*] 20 mg PO DAILY 08/28/20 buPROPion HCL [Bupropion HCl] 100 mg PO DAILY 08/28/20 Albuterol Neb [Proventil 0.083% Neb Soln] 2.5 mg NEB [id number] PRN #120 amp 08/29/20 Cefuroxime Axetil [Cefuroxime] 500 mg PO BID #10 tab 08/29/20 Fluticasone/Umeclidin/Vilanter [Trelegy Ellipta 200-62.5-25] 1 each IH DAILY #30 blst.w.dev 08/29/20 Ipratropium Neb [Atrovent*] 0.5 mg NEB [id number] PRN #120 amp 08/29/20 Nebulizer [Aeroneb Go Nebulizer] 1 each Q6H #1 each 08/29/20 predniSONE [Deltasone] 40 mg PO DAILY #5 tab 08/29/20 New Medications: Ipratropium Neb [Atrovent*] 0.5 mg NEB [id number] PRN #120 amp PRN Reason: Shortness Of Breath Albuterol Neb [Proventil 0.083% Neb Soln] 2.5 mg NEB [id number] PRN #120 amp PRN Reason: Shortness Of Breath Nebulizer [Aeroneb Go Nebulizer] 1 each Q6H #1 each Cefuroxime Axetil [Cefuroxime] 500 mg PO BID #10 tab predniSONE [Deltasone] 40 mg PO DAILY #5 tab Fluticasone/Umeclidin/Vilanter [Trelegy Ellipta 200-62.5-25] 1 each IH DAILY #30 blst.w.dev Diet: ADA Activity: Ad margarita Followup: Jass Fong MD [ACTIVE - CAN ADMIT] - Unknown,U [Primary Care Provider] - 1-2 Weeks Time spent managing pt's care (in minutes): 32
--- NOTE | 2020-08-29 10:50 | EKG ---
Test Date: 2020-08-28 Test Time: 08:31:12 Final Finisher: SV MEASUREMENT RESULTS: Intervals: Rate: 70 OR: QRSD: 132 QT: 418 QTc: 451 [place]: P: 61 OR: QRS: -63 T: 106 INTERPRETIVE STATEMENTS: Atrial flutter with variable AV block Left axis deviation Left ventricular hypertrophy with QRS widening Nonspecific T wave abnormality Abnormal ECG Compared to ECG 08/22/2020 12:23:59 Possible ischemia no longer present T-wave abnormality still present Electronically Signed On 08-29-20 10:46:58 CDT by Jose Nunn
[2020-08-29 13:38] VITALS: O2SAT 96
[2020-08-29] MEDS ORDERED: ATORVASTATIN 40 MG TAB PO SCH (21:00)
[2020-08-29] MEDS ORDERED: RIVAROXABAN 10 MG TABLET PO SCH (21:00)
== END 2020-08-29 13:23 | disposition home or self-care (01) | DRG 189 ==
LOC: ER 07:48 → ERHOLD 12:22 → 2ND 14:50
PROVIDERS: ADMIT Internal Medicine; ATTEND Internal Medicine
PROC: 5A09457 Assistance with Respiratory Ventilation, 24-96 Consecutive Hours, Continuous Positive Airway Pressure (ICD-10-PCS; principal; 2020-08-28)
DX: J96.01 Acute respiratory failure with hypoxia (principal); I50.33 Acute on chronic diastolic (congestive) heart failure; J44.1 Chronic obstructive pulmonary disease with (acute) exacerbation; I13.0 Hypertensive heart and chronic kidney disease with heart failure and stage 1 through stage 4 chronic kidney disease, or unspecified chronic kidney disease; N18.30 Chronic kidney disease, stage 3 unspecified; E11.22 Type 2 diabetes mellitus with diabetic chronic kidney disease; E11.40 Type 2 diabetes mellitus with diabetic neuropathy, unspecified; D72.829 Elevated white blood cell count, unspecified; I25.10 Atherosclerotic heart disease of native coronary artery without angina pectoris; F17.200 Nicotine dependence, unspecified, uncomplicated; E78.5 Hyperlipidemia, unspecified; G89.29 Other chronic pain; M54.9 Dorsalgia, unspecified; I25.2 Old myocardial infarction; Z79.84 Long term (current) use of oral hypoglycemic drugs; Z79.01 Long term (current) use of anticoagulants; Z79.899 Other long term (current) drug therapy; Z95.1 Presence of aortocoronary bypass graft; Z79.52 Long term (current) use of systemic steroids; Z79.82 Long term (current) use of aspirin; Z95.5 Presence of coronary angioplasty implant and graft; Z20.822 Contact with and (suspected) exposure to COVID-19
CPT/HCPCS: 0240U; 36415; 71045; 80048; 80053; 80061; 80076; 81003; 82805; 82947; 83735; 83880; 84100; 84443; 84484; 85025; 85610; 87040; 93005; 94640; 94660; 94760; 96365; 96375; 97161; 99291; 99292; J0456; J0696; J1100; J1650; J1940; J2920; J7050

== ENCOUNTER 2020-09-17 02:05 | Inpatient (IN) | payer OTHER ==
--- OUTSIDE RECORDS SUMMARY | 2020-09-17 02:11 | XMS REPORT | Continuity of Care Document ---
:1950 Author Organization [facility] t Address [address] [place] [address] Care Team Providers Name Role Phone Asha [...] Disease Active [facility] (coron[facility]- [facility] - artery artery 00:00: Medical [...] shock 11-14 [facility] - 00:00: Medical 00 [place] CAD CAD Disease Active [facility] ([facility]onary (coronary 11-11 [facility] - artery artery 00:00: Medical disease) disease) 00 Center CKD CKD Disease Active Overview: [facility] (chronic (chronic 05-06 Baseline [facility] - kidney kidney 00:00: Creatinin Medical disease) disease) 00 e ~ 1-1.[address] stage 2, stage 2, GFR 60-89 GFR 60-89 ml/min ml/min Coronary Coronary Disease Active Overview: [facility] artery artery 05-06 PCI 2013, [facility] - disease disease 00:00: 2016- on Medica l 00 plavix / Center ACB x 3: IBRAHIM-> LAD, SVG-> OM1, SVG-> OM2 Diabetes Diabetes Disease Active Overview: [facility] mellitus mellitus 05-06 oral meds [facility] es - 00:00: including Medical 00 metformin Center Hypertensi Hypertensi Disease Active [facility] on on 05-06 [facility] - 00:00: Medical 00 [place] NORRIS on NORRIS on Disease Active Overview: [facility] CPAP CPAP claims [facility] Medical e with Center CPAP Current Current Disease Active [facility] smoker smoker [facility] Allergies, Adverse Reactions, Alerts Allergy Allergy Status Severity Reaction(s) Onset Inactive Treating Comm ents Source Name Type Date Date Clinician No Known DA Active [facility] Allergie 08-12 [place] s 00:00: [address] Social History Social Habit Start Date Stop Date Quantity Comments Source Sex Assigned At [facility] Cigarettes smoked 2018-01-22 2018-01-22 [facility] - current (pack per 00:00:00 00:00:00 Medical Center day) - Reported Cigarette 2018-01-22 2018-01-[address] [facility] - pack-years 00:00:00 00:00:00 [facility] Tobacco use and 2018-01-22 2018-01-[address] K[facility]ine kes - exposure 00:00:00 00:00:00 [facility] Alcohol intake 2018-01-22 2018-01-[address] [facility] - 00:00:00 00:00:00 non-drinker of Medical Ce nter alcohol (finding) Smoking Status Start Date Stop Date Source Current every day smoker 2018-01-22 00:00:[address] [facility] Medications Ordered Filled Start Stop Current Ordering Indication Dosage Frequency Signature Comments Components Source Medication Medication Date Date Medication? Clinician (SIG) Name Name carvedilol 2017- Yes 12.5mg Take 12.[address] (COREG) [...] capsule 53 Center gabapentin 0 Yes 1200mg [id number] Take 1,[address] (NEURONTIN) 9-20 [id number] mg by L ukes - 600 MG [...] 00:00:00 measurement Medical Center (procedure) [code = 35588847] Future Scheduled 2014-11-[address] [facility] - Test 00:00:00 WELLNESS (YEAR 2 or Medical Center FIRST YEAR if no IPPE) [code = MEDICARE ANNUAL WELLNESS (YEAR 2 or FIRST YEAR if no IPPE)] Future Scheduled 2013 PNEUMOCOCCAL 65+ YRS [facility] - Test 00:00:00 (1 of 1 - Medical Center [id number] PCV13) [code = PNEUMOCOCCAL 65+ YRS (1 of 1 - [id number]_[id number] PCV13)] Future Scheduled 1958 DIABETIC EYE EXAM [facility] - Test 00:00:00 [code = DIABETIC EYE Medical Center EXAM] Future Scheduled [address] [facility] - Test 00:00:00 examination Medical Center (regime/therapy) [code = 117321105] Future Scheduled 1958 Urine screening for [facility] - Test 00:00:00 protein (procedure) Medical Center [code = 930202986] Future Scheduled [address] [facility] - Test 00:00:00 malignant neoplasm of Medica l [place] colon (procedure) [code = 317919842] Encounters Start End Encounter Admission Attending Care Care Encounter Source Date/Time Date/Time Type Type Clinicians Facility Department ID 2020-08-11 2020-08-11 Emergency Artemio [facility] [id number] 14:46:00 22:30:00 Samantha Rangel [id number] [place] [id number] [place] [id number] Results Test Description Test Time Test Comments Results Result Comments Source GLUCOSE BEDSIDE TESTING 2020-08-13 12:07:00 Test Item Value Reference Range Interpretation Comme nts GLUCOSE BEDSIDE TESTING (test code = GLUBED) 137 MG/DL 60-99 H GLYCOSYLATED HEMOGLOBIN [id number] 11:19:00 Test Item Value Reference Range Interpretation [...] H (test code = MBG) BASIC METABOLIC [id number] 07:59:00 Test Item Value Reference Range Interpretation [...] PATIENT REFUSED; PER ANTONIO Soto (STEPHEN)BASIC METABOLIC [id number] 07:50:00 Test Item Value Reference Range Interpretation [...] LDL) PATIENT REFUSED; PER ANTONIO Soto (STEPHEN)PROTHROMBIN [id number] 07:46:00 Test Item Value Reference Range Interpretation [...] 3.0 - 4.5 PATIENT REFUSED; PER:ANTONIO MOORE)PTT [id number] 07:46:00 Test Item Value Reference Range Interpretation Comments PTT ACTIVATED (test code = APTT) 39.0 SECONDS 25.1-36.5 H PATIENT REFUSED; PER:ANTONIO Soto (RN)CBC W/AUTO [id number] 07:35:00 Test Item Value Reference Range Interpretation [...] PATIENT REFUSED; PER ANTONIO Soto (RN)GLUCOSE BEDSIDE [id number] 04:56:00 Test Item Value Reference Range Interpretation Comments GLUCOSE BEDSIDE TESTING (test code 123 MG/DL 60-99 H = GLUBED) GLUCOSE BEDSIDE [id number] 18:50:00 Test Item Value Reference Range Interpretation Comments GLUCOSE BEDSIDE TESTING (test code 221 MG/DL 60-99 H = GLUBED) GLUCOSE BEDSIDE [id number] 15:43:00 Test Item Value Reference Range Interpretation Comments GLUCOSE BEDSIDE TESTING (test code 126 MG/DL 60-99 H = GLUBED) GLUCOSE BEDSIDE [id number] 11:35:00 Test Item Value Reference Range Interpretation Comments GLUCOSE BEDSIDE TESTING (test code 161 MG/DL 60-99 H = GLUBED) GLYCOSYLATED HEMOGLOBIN [id number] 10:30:00 Test Item Value Reference Range Interpretation [...] H (test code = MBG) COMPREHENSIVE METABOLIC [id number] 09:27:00 Test Item Value Reference Range Interpretation [...] 38-126 N PHOSPHATASE (test code = ALKP) [id number] 09:27:00 Test Item Value Reference Range Interpretation Comments TROPONIN-I (test code = TROPI) 0.089 NG/ML 0.012-0.033 H T4 [id number] 09:07:00 Test Item Value Reference Range Interpretation Comments T4 FREE (test code = T4F) 1.5 NG/DL 0.78-2.19 N Specimen comments: please run from tsh previously drawnCOMPREHENSIVE METABOLIC [id number] 08:51:00 Test Item Value Reference Range Interpretation [...] 38-126 N PHOSPHATASE (test code = ALKP) [id number] 08:51:00 Test Item Value Reference Range Interpretation Comments TROPONIN-I (test code = TROPI) NG/ML 0.0-0.045 CBC W/AUTO [id number] 08:36:00 Test Item Value Reference Range Interpretation [...] 0.00 K/mm3 0.0-0.1 N NRBC#) GLUCOSE BEDSIDE [id number] 07:36:00 Test Item Value Reference Range Interpretation Comments GLUCOSE BEDSIDE TESTING (test code 178 MG/DL 60-99 H = GLUBED) URINALYSIS [id number] 04:39:00 Test Item Value Reference Range Interpretation [...] UACULT) Criteria SOURCE OF URINE: CLEAN CATCHURINALYSIS [id number] 04:35:00 Test Item Value Reference Range Interpretation [...] SOURCE OF URINE: CLEAN CATCHTSH REFLEX TO [id number] 04:06:00 Test Item Value Reference Range Interpretation Comments TSH REFLEX TO FT4 0.391 MIU/L 0.65-4.68 L Please be aware that (test code = bias results fo r TSH TSHREFLEX) may occur forpa tient who are taking Biotin supplements. [id number] 04:06:00 Test Item Value Reference Range Interpretation Comments MAGNESIUM (test code = MAG) 1.8 MG/DL 1.6-2.3 N LIPOPROTEIN LDL [id number] 04:06:00 Test Item Value Reference Range Interpretation Comments LIPOPROTEIN LDL DIRECT 92 mg/dL 100-129 L ===== (test code = LDLDIR) ======= ==Refe rence Interval: mg/dL mmol/L--------- ------ ------ ------ --Optimal <100 <2.6Near/abov e optimal 100-129 2.6-3.3Borderli ne High 130-159 3.4-4.1High 16 0-189 4.1-4.9Ve ry High >=190 >=4.9========= This LDL result is a direct measurement.=== ====== [id number] 04:06:00 Test Item Value Reference Range Interpretation Comments TROPONIN-I (test code = TROPI) 0.075 NG/ML 0.012-0.033 H [id number] 03:48:00 Test Item Value Reference Range Interpretation Comments MAGNESIUM (test code = MAG) 1.8 MG/DL 1.6-2.3 N LIPOPROTEIN LDL [id number] 03:48:00 Test Item Value Reference Range Interpretation Comments LIPOPROTEIN LDL DIRECT (test code = mg/dL 100-129 LDLDIR) [id number] 03:48:00 Test Item Value Reference Range Interpretation Comments TROPONIN-I (test code = TROPI) 0.075 NG/ML 0.012-0.033 H [id number] 03:38:00 Test Item Value Reference Range Interpretation Comments MAGNESIUM (test code = MAG) 1.8 MG/DL 1.6-2.3 N [id number] 03:38:00 Test Item Value Reference Range Interpretation Comments TROPONIN-I (test code = TROPI) NG/ML 0.0-0.045 GLUCOSE BEDSIDE [id number] 23:56:00 Test Item Value Reference Range Interpretation Comments GLUCOSE BEDSIDE TESTING (test code 211 MG/DL 60-99 H = GLUBED) HEMOGLOBIN [id number] 09:40:00 Test Item Value Reference Range Interpretation Comments HEMOGLOBIN A1C ([facility]) (test code = 6.1 % 4.3-6.1 368) RAD, CHEST, 1 VIEW, NON [id number] 09:36:00Reason for exam:->sobShould this be performed at the bedside?->YesFINAL REPORT Chest one view compared to January 22 Discussion: There is cardiac prominence and interstitial congestion. There is linear opacity in both lower lungs. No effusionor pneumothorax. Signed: Denice Tran Verified Date/Time: 01/23/2018 09:36:57 Reading Location: [facility] Radiology Reading Room POCT-GLUCOSE [id number] 08:04:00 Test Item Value Reference Range Interpretation Comments POC-GLUCOSE METER 176 mg/dL 70-110 H TESTED AT [place] [address] (BEAKER) (test code = [place] 1538) [address] [id number] 06:49:00 Test Item Value Reference Range Interpretation Comments MAGNESIUM (BEAKER) 2.1 mg/dL 1.6-2.6 Specimen slightly (test code = 627) hemolyzed BASIC METABOLIC [id number] 06:49:00 Test Item Value Reference Range Interpretation [...] PATIEN TS. CBC W/PLT COUNT & AUTO [id number] 06:30:00 Test Item Value Reference Range Interpretation [...] PERCENT (BEAKER) (test code = 2801) POCT-GLUCOSE [id number] 22:19:00 Test Item Value Reference Range Interpretation Comments POC-GLUCOSE METER 235 mg/dL 70-110 H TESTED AT [facility] [address] ([facility]) (test code = [place] 1538) [address] TROPONIN [id number] 17:45:00 Test Item Value Reference Range Interpretation Comments TROPONIN I ([facility]) (test code = 0.53 ng/mL 0.00-0.03 [facility]) Troponin I (TnI) levels must be interpreted [...] 0-100 H (BEAKER) (test code = 700) [id number] 17:35:00 Test Item Value Reference Range Interpretation Comments MAGNESIUM (BEAKER) (test code = 1.9 mg/dL 1.6-2.6 627) COMPREHENSIVE METABOLIC [id number] 17:35:00 Test Item Value Reference Range Interpretation [...] NOT APPLICABLE FOR DIALYSIS PATIEN TS. LIPID [id number] 17:35:00 Test Item Value Reference Range Interpretation [...] 160-189 Very High >=190LACTIC ACID, VENOUS, WHOLE [id number] 17:29:00 Test Item Value Reference Range Interpretation Comments LACTATE BLOOD VENOUS 1.0 mmol/L 0.5-2.2 Specime n slightly (2) (BEAKER) (test hemolyzed code = 2872) Effective 09/07/2015: Units/Reference Range ChangeNew: 0.5-2.2 mmol/L Previous: 5-20 mg/[id number] 17:29:00 Test Item Value Reference Range Interpretation Comments PARTIAL THROMBOPLASTIN TIME 46.7 seconds 22.5-36.0 H (BEAKER) (test code = 760) PROTHROMBIN [id number] 17:28:00 Test Item Value Reference Range Interpretation [...] = 2801) RAD, CHEST, 1 VIEW, NON [id number] 17:16:00Reason for exam:->sp acute respiratory failure/bronchospasmShould this [...] Banegas Verified Date/Time: 01/22/2018 17:16:12 Reading Location: [facility] Reading Room POCT-GLUCOSE [id number] 17:12:00 Test Item Value Reference Range Interpretation Comments POC-GLUCOSE METER 118 mg/dL 70-110 H TESTED AT [facility] [address] (BEAKER) (test code = [place] 1538) [address] BLOOD GAS, [id number] 16:35:00 Test Item Value Reference Range Interpretation [...] (test code = 1819) 32.0 % POCT-GLUCOSE [id number] 14:15:00 Test Item Value Reference Range Interpretation Comments POC-GLUCOSE METER 69 mg/dL 70-110 L Will Repea t Test/TESTED (BEAKER) (test code = AT [facility] [address] [facility]) [place] [address] POCT-GLUCOSE [id number] 08:43:00 Test Item Value Reference Range Interpretation Comments POC-GLUCOSE METER 277 mg/dL 70-110 H TESTED AT [facility] [address] (BEAKER) (test code = [place] 1538) [address] [id number] 06:20:00 Test Item Value Reference Range Interpretation Comments PHOSPHORUS (BEAKER) (test code = 3.3 mg/dL 2.3-4.7 604) [id number] 06:20:00 Test Item Value Reference Range Interpretation Comments MAGNESIUM (BEAKER) (test code = 1.8 mg/dL 1.6-2.6 627) BASIC METABOLIC [id number] 06:20:00 Test Item Value Reference Range Interpretation [...] PATIEN TS. CBC W/PLT COUNT & AUTO [id number] 06:09:00 Test Item Value Reference Range Interpretation [...] PERCENT (BEAKER) (test code = 2801) POCT-GLUCOSE [id number] 22:48:00 Test Item Value Reference Range Interpretation Comments POC-GLUCOSE METER 196 mg/dL 70-110 H TESTED AT [facility] [address] (BEAKER) (test code = [place] 1538) [address] POCT-GLUCOSE [id number] 17:21:00 Test Item Value Reference Range Interpretation Comments POC-GLUCOSE METER 122 mg/dL 70-110 H TESTED AT [facility] [address] (BEAKER) (test code = [place] 1538) [address] [id number] 13:13:00 Test Item Value Reference Range Interpretation Comments PHOSPHORUS (BEAKER) (test code = 2.4 mg/dL 2.3-4.7 604) BASIC METABOLIC [id number] 13:13:00 Test Item Value Reference Range Interpretation [...] S NOT APPLICABLE FOR DIALYSIS PATIEN TS. [id number] 13:08:00 Test Item Value Reference Range Interpretation Comments MAGNESIUM (BEAKER) (test code = 1.7 mg/dL 1.6-2.6 627) CBC W/PLT COUNT & AUTO [id number] 12:50:00 Test Item Value Reference Range Interpretation [...] PERCENT (BEAKER) (test code = 2801) POCT-GLUCOSE [id number] 12:42:00 Test Item Value Reference Range Interpretation Comments POC-GLUCOSE METER 174 mg/dL 70-110 H TESTED AT [facility] 67[address] (BEAKER) (test code = [place] 1538) [address] POCT-GLUCOSE [id number] 08:01:00 Test Item Value Reference Range Interpretation Comments POC-GLUCOSE METER 175 mg/dL 70-110 H TESTED AT [place] [address] ([facility]) (test code = [place] 1538) [address] RAD, CHEST, 1 VIEW, NON [id number] 03:44:00Reason for exam:->ptxShould this be performed at [...] MDReport Verified Date/Time: 11/18/2017 03:44:04 Reading Location: [address] Reading Room POCT- GLUCOSE [id number] 21:05:00 Test Item Value Reference Range Interpretation Comments POC-GLUCOSE METER 145 mg/dL 70-110 H TESTED AT [place] [address] ([facility]) (test code = [place] 1538) [address] POCT-GLUCOSE [id number] 17:19:00 Test Item Value Reference Range Interpretation Comments POC-GLUCOSE METER 129 mg/dL 70-110 H TESTED AT [place] [address] ([facility]) (test code = BREEZY [place] [facility] 1538) [address] POCT-GLUCOSE [id number] 12:12:00 Test Item Value Reference Range Interpretation Comments POC-GLUCOSE METER 194 mg/dL 70-110 H TESTED AT [place] [address] ([facility]) (test code = BREEZY [place] [facility] 1538) [address] POCT-GLUCOSE [id number] 07:30:00 Test Item Value Reference Range Interpretation Comments POC-GLUCOSE METER 171 mg/dL 70-110 H TESTED AT [place] [address] (BEAKER) (test code = [place] 1538) [address] RAD, CHEST, 1 VIEW, NON [id number] 07:27:00Reason for exam:->ptxShould this be performed at [...] MDReport Verified Date/Time: 11/17/2017 07:27:16 Reading Location: [address] Consult Reading Room [id number] 07:19:00 Test Item Value Reference Range Interpretation Comments MAGNESIUM (BEAKER) (test code = 1.9 mg/dL 1.6-2.6 627) BASIC METABOLIC [id number] 07:19:00 Test Item Value Reference Range Interpretation [...] NOT APPLICABLE FOR DIALYSIS PATIEN TS. POCT-GLUCOSE [id number] 21:30:00 Test Item Value Reference Range Interpretation Comments POC-GLUCOSE METER 214 mg/dL 70-110 H TESTED AT [facility] [address] (BEAKER) (test code = [place] 1538) [address] URINALYSIS W/ REFLEX URINE [id number] 16:32:00 Test Item Value Reference Range Interpretation [...] = 2795) RAD, CHEST, 1 VIEW, NON [id number] 15:34:00Reason for exam:->ptxShould this be performed at [...] the left sided chest tube. Signed: Boaz Estebanort Verified Date/Time: 11/16/2017 15:34:49 Reading Location: [facility] Reading Room POCT-GLUCOSE [id number] 12:10:00 Test Item Value Reference Range Interpretation Comments POC-GLUCOSE METER 203 mg/dL 70-110 H TESTED AT [place] [address] ([facility]) (test code = BREEZY [place] [facility] 1538) [address] POCT-GLUCOSE [id number] 08:21:00 Test Item Value Reference Range Interpretation Comments POC-GLUCOSE METER 181 mg/dL 70-110 H TESTED AT [place] [address] ([facility]) (test code = BREEZY [place] [facility] 1538) [address] RAD, CHEST, 1 VIEW, NON [id number] 08:03:00while patient is intubated or has chest [...] Tran Verified Date/Time: 11/16/2017 08:03:32 Reading Location: [address] Reading Room POCT-GLUCOSE [id number] 00:11:00 Test Item Value Reference Range Interpretation Comments POC-GLUCOSE METER 159 mg/dL 70-110 H TESTED AT [place] [address] ([facility]) (test code = BREEZY [place] [facility] 1538) [address] POCT-GLUCOSE [id number] 20:33:00 Test Item Value Reference Range Interpretation Comments POC-GLUCOSE METER 163 mg/dL 70-110 H TESTED AT [place] [address] ([facility]) (test code = BREEZY [place] [facility] 1538) [address] POCT-GLUCOSE [id number] 17:33:00 Test Item Value Reference Range Interpretation Comments POC-GLUCOSE METER 183 mg/dL 70-110 H TESTED AT [facility] [address] (SPAKER) (test code = BREEZY [place] [facility] 1538) [address] URINE IMMUNOFIXATION, [id number] 17:17:00 Test Item Value Reference Range Interpretation Comments PROTEIN, URINE 30 mg/dL 0-14 H (BEAKER) (test code = 1569) ALBUMIN URINE ELP 61.4 % (BEAKER) (test code = 1018) GAMMA GLOBULIN URINE 38.6 % (BEAKER) (test code = 1015) URINE GERARD [id number] No monoclonal proteins (AKER) (test code = or monoclonal free 2602) light chains detected. [id number] Raine Martin MD ([facility]) (test code = (electronic signature) 1411) RAD, CHEST, 1 VIEW, NON [id number] 13:19:00while patient is intubated or has chest [...] (BEAKER) (test code = 1015) UPEP, ID-[id number] ([facility]) No monoclonal bands (test code = 2604) detected. [id number] Raine Martin MD (BEAKER) (test code = (electronic signature) 3829) PROTEIN ELECTROPHORESIS, [id number] 12:29:00 Test Item Value Reference Range Interpretation [...] a hemolyzed sample. No monoclonal bands detected. [id number] Raine Martin MD (BEAKER) (test code = (electronic signature) 5285) PROTEIN TOTAL SERUM, 7.0 gm/dL 6.0-8.3 SPEP (BEAKER) (test code = 5530) BLOOD GAS, [id number] 08:21:00 Test Item Value Reference Range Interpretation [...] code = 1819) 20.0 % BASIC METABOLIC [id number] 08:03:00 Test Item Value Reference Range Interpretation [...] DIALYSIS PATIEN TS. LACTIC ACID, ARTERIAL, WHOLE [id number] 07:57:00 Test Item Value Reference Range Interpretation Comments LACTATE BLOOD ARTERIAL (2) 0.8 mmol/L 0.5-2.2 (BEAKER) (test code = 2874) Effective 09/07/2015: Units/Reference Range ChangeNew: 0.5-2.2 mmol/L Previous: 5-20 mg/[id number] 02:55:00 Test Item Value Reference Range Interpretation Comments PHOSPHORUS (BEAKER) (test code = 2.8 mg/dL 2.3-4.7 604) [id number] 02:55:00 Test Item Value Reference Range Interpretation Comments MAGNESIUM (BEAKER) (test code = 2.1 mg/dL 1.6-2.6 627) BASIC METABOLIC [id number] 02:55:00 Test Item Value Reference Range Interpretation [...] NOT APPLICABLE FOR DIALYSIS PATIEN TS. PROTHROMBIN [id number] 02:53:00 Test Item Value Reference Range Interpretation Comments PROTIME (BEAKER) (test code = 14.9 seconds 11.7-14.7 H 759) INR (BEAKER) (test code = 370) 1.2 <=5.9 RECOMMENDED COUMADIN/WARFARIN INR THERAPY RANGESSTANDARD DOSE: 2.0 - 3.0 Includes: PROPHYLAXIS forvenous thrombosis, systemic embolization; TREATMENT for venous thrombosis and/or pulmonary embolus.HIGH RISK: Target INR is 2.5-3.5 for patients with mechanical heart valves.[id number] 02:53:00 Test Item Value Reference Range Interpretation Comments PARTIAL THROMBOPLASTIN TIME 34.0 seconds 22.5-36.0 (BEAKER) (test code = 760) CBC W/PLT COUNT & AUTO [id number] 02:43:00 Test Item Value Reference Range Interpretation [...] PERCENT (BEAKER) (test code = 2801) PLATELET [id number] 02:35:00 Test Item Value Reference Range Interpretation Comments PLATELET COUNT (BEAKER) (test 167 K/CU MM 150-450 code = 756) GLUCOSE-STAT [id number] 02:32:00 Test Item Value Reference Range Interpretation Comments GLUCOSE RANDOM (BEAKER) (test code 112 mg/dL 70-110 H = 652) HGB/HCT (H&H) - STAT [id number] 02:32:00 Test Item Value Reference Range Interpretation Comments HEMOGLOBIN (BEAKER) (test code = 10.5 g/dL 13.0-16.8 L 410) HEMATOCRIT (BEAKER) (test code = 31.0 % 40.0-50.0 L 411) CALCIUM, [id number] 02:31:00 Test Item Value Reference Range Interpretation Comments CALCIUM IONIZED (BEAKER) (test 1.18 mmol/L 1.12-1.27 code = 698) PH, BLOOD (BEAKER) (test code = 7.38 1810) SODIUM NA-STAT [id number] 02:31:00 Test Item Value Reference Range Interpretation Comments SODIUM (BEAKER) (test code = 381) 137 meq/L 135-148 POTASSIUM-STAT [id number] 02:31:00 Test Item Value Reference Range Interpretation Comments POTASSIUM (BEAKER) (test code = 3.7 meq/L 3.6-5.5 379) POCT-GLUCOSE [id number] 00:40:00 Test Item Value Reference Range Interpretation Comments POC-GLUCOSE METER 129 mg/dL 70-110 H TESTED AT [place] [address] ([facility]) (test code = [facility] 1538) [address] POCT-GLUCOSE [id number] 00:40:00 Test Item Value Reference Range Interpretation Comments POC-GLUCOSE METER 143 mg/dL 70-110 H TESTED AT [place] [address] ([facility]) (test code = [facility] 1538) [address] POCT-GLUCOSE [id number] 21:41:00 Test Item Value Reference Range Interpretation Comments POC-GLUCOSE METER 179 mg/dL 70-110 H TESTED AT [place] [address] ([facility]) (test code = [facility] 1538) [address] BLOOD GAS, [id number] 19:39:00 Test Item Value Reference Range Interpretation [...] (test code = 1819) 40.0 % GLUCOSE-STAT [id number] 19:39:00 Test Item Value Reference Range Interpretation Comments GLUCOSE RANDOM (BEAKER) (test code 160 mg/dL 70-110 H = 652) HGB/HCT (H&H) - STAT [id number] 19:39:00 Test Item Value Reference Range Interpretation Comments HEMOGLOBIN (BEAKER) (test code = 11.0 g/dL 13.0-16.8 L 410) HEMATOCRIT (BEAKER) (test code = 32.0 % 40.0-50.0 L 411) SODIUM NA-STAT [id number] 19:37:00 Test Item Value Reference Range Interpretation Comments SODIUM (BEAKER) (test code = 381) 137 meq/L 135-148 POTASSIUM-STAT [id number] 19:37:00 Test Item Value Reference Range Interpretation Comments POTASSIUM (BEAKER) (test code = 4.0 meq/L 3.6-5.5 379) BLOOD GAS, [id number] 18:02:00 Test Item Value Reference Range Interpretation [...] arterial line present.RAD, CHEST, 1 VIEW, NON [id number] 17:20:00 Reason for exam:->PostopShould this be performed at the bedside?->YesFINAL REPORT EXAM: Frontal chest radiograph HISTORY PROVIDED: Postop COMPARISON: 11/13/2017 IMPRESSION:The tip of an endotracheal tube terminates 3.8 cm above the alexia. A right IJ approach [place] catheter has been placed with its tip [...] MDReport Verified Date/Time: 11/14/2017 17:20:20 Reading Location: [facility] Reading Room C METABOLIC [id number] 16:02:00 Test Item Value Reference Range Interpretation [...] S NOT APPLICABLE FOR DIALYSIS PATIEN TS. [id number] 16:02:00 Test Item Value Reference Range Interpretation Comments PHOSPHORUS (BEAKER) (test code = 2.3 mg/dL 2.3-4.7 604) [id number] 16:02:00 Test Item Value Reference Range Interpretation Comments MAGNESIUM (BEAKER) (test code = 2.6 mg/dL 1.6-2.6 627) LACTIC ACID, ARTERIAL, WHOLE [id number] 15:58:00 Test Item Value Reference Range Interpretation Comments LACTATE BLOOD 0.9 mmol/L 0.5-2.2 Specimen sligh tly ARTERIAL (2) (BEAKER) hemoly zed (test code = 2874) Effective 09/07/2015: Units/Reference Range ChangeNew: 0.5-2.2 mmol/L Previous: 5-20 mg/dLCBC W/PLT COUNT & AUTO [id number] 15:47:00 Test Item Value Reference Range Interpretation [...] (BEAKER) (test code = 2801) OXYGEN SATURATION, [id number] 15:37:00 Test Item Value Reference Range Interpretation Comments O2 SATURATION (MEASURED) (BEAKER) 55.5 % (test code = 1455) CALCIUM, [id number] 15:37:00 Test Item Value Reference Range Interpretation Comments CALCIUM IONIZED (BEAKER) (test 1.12 mmol/L 1.12-1.27 code = 698) PH, BLOOD (BEAKER) (test code = 7.41 1810) SODIUM NA-STAT [id number] 15:37:00 Test Item Value Reference Range Interpretation Comments SODIUM (BEAKER) (test code = 381) 138 meq/L 135-148 POTASSIUM-STAT [id number] 15:37:00 Test Item Value Reference Range Interpretation Comments POTASSIUM (BEAKER) (test code = 3.6 meq/L 3.6-5.5 379) BLOOD GAS, [id number] 15:37:00 Test Item Value Reference Range Interpretation [...] (test code = 1819) 60.0 % GLUCOSE-STAT [id number] 15:37:00 Test Item Value Reference Range Interpretation Comments GLUCOSE RANDOM (BEAKER) (test code 162 mg/dL 70-110 H = 652) HEMOGLOBIN-STAT [id number] 15:37:00 Test Item Value Reference Range Interpretation Comments HEMOGLOBIN (BEAKER) (test code = 11.2 g/dL 13.0-16.8 L 410) HGB/HCT (H&H) - STAT [id number] 15:37:00 Test Item Value Reference Range Interpretation Comments HEMOGLOBIN (BEAKER) (test code = 11.2 GM/DL 13.0-16.8 L 410) HEMATOCRIT (BEAKER) (test code = 33.0 % 40.0-50.0 L 411) [id number] 14:04:00 Test Item Value Reference Range Interpretation Comments ACTIVATED CLOTTING TIME 114 sec TEST ED AT [place] [address] ([facility]) (test code = [place] [address]) [address] [id number] 14:04:00 Test Item Value Reference Range Interpretation Comments ACTIVATED CLOTTING TIME 472 sec TEST ED AT [place] [address] ([facility]) (test code = [place] [address]) [address] [id number] 14:04:00 Test Item Value Reference Range Interpretation Comments ACTIVATED CLOTTING TIME 505 sec TEST ED AT [place] [address] ([facility]) (test code = [place] [address]) [address] [id number] 14:04:00 Test Item Value Reference Range Interpretation Comments ACTIVATED CLOTTING TIME 543 sec TEST ED AT [place] [address] ([facility]) (test code = [place] [address]) [address] CALCIUM, [id number] 13:58:00 Test Item Value Reference Range Interpretation Comments CALCIUM IONIZED (BEAKER) (test 1.11 mmol/L 1.12-1.27 L code = 698) PH, BLOOD (BEAKER) (test code = 7.36 1810) BLOOD GAS, [id number] 13:56:00 Test Item Value Reference Range Interpretation [...] (test code = 1819) 100.0 % GLUCOSE-STAT [id number] 13:56:00 Test Item Value Reference Range Interpretation Comments GLUCOSE RANDOM (BEAKER) (test code 167 mg/dL 70-110 H = 652) HGB/HCT (H&H) - STAT [id number] 13:56:00 Test Item Value Reference Range Interpretation Comments HEMOGLOBIN (BEAKER) (test code = 10.8 g/dL 13.0-16.8 L 410) HEMATOCRIT (BEAKER) (test code = 32.0 % 40.0-50.0 L 411) SODIUM NA-STAT [id number] 13:55:00 Test Item Value Reference Range Interpretation Comments SODIUM (BEAKER) (test code = 381) 136 meq/L 135-148 POTASSIUM-STAT [id number] 13:55:00 Test Item Value Reference Range Interpretation Comments POTASSIUM (BEAKER) (test code = 3.8 meq/L 3.6-5.5 379) BLOOD GAS, [id number] 12:54:00 Test Item Value Reference Range Interpretation [...] code = 1819) 65.0 % SODIUM NA-STAT [id number] 12:54:00 Test Item Value Reference Range Interpretation Comments SODIUM (BEAKER) (test code = 381) 134 meq/L 135-148 L GLUCOSE-STAT [id number] 12:54:00 Test Item Value Reference Range Interpretation Comments GLUCOSE RANDOM (BEAKER) (test code 158 mg/dL 70-110 H = 652) HGB/HCT (H&H) - STAT [id number] 12:54:00 Test Item Value Reference Range Interpretation Comments HEMOGLOBIN (BEAKER) (test code = 8.8 g/dL 13.0-16.8 L 410) HEMATOCRIT (BEAKER) (test code = 26.0 % 40.0-50.0 L 411) POTASSIUM-STAT [id number] 12:53:00 Test Item Value Reference Range Interpretation Comments POTASSIUM (BEAKER) (test code = 4.1 meq/L 3.6-5.5 379) BLOOD GAS, [id number] 12:20:00 Test Item Value Reference Range Interpretation [...] code = 1819) 60.0 % SODIUM NA-STAT [id number] 12:20:00 Test Item Value Reference Range Interpretation Comments SODIUM (BEAKER) (test code = 381) 134 meq/L 135-148 L GLUCOSE-STAT [id number] 12:20:00 Test Item Value Reference Range Interpretation Comments GLUCOSE RANDOM (BEAKER) (test code 187 mg/dL 70-110 H = 652) HGB/HCT (H&H) - STAT [id number] 12:20:00 Test Item Value Reference Range Interpretation Comments HEMOGLOBIN (BEAKER) (test code = 10.0 g/dL 13.0-16.8 L 410) HEMATOCRIT (BEAKER) (test code = 29.0 % 40.0-50.0 L 411) BLOOD GAS, [id number] 12:20:00 Test Item Value Reference Range Interpretation [...] (test code = 1819) 60.0 % POTASSIUM-STAT [id number] 12:18:00 Test Item Value Reference Range Interpretation Comments POTASSIUM (BEAKER) (test code = 3.5 meq/L 3.6-5.5 L 379) U/S, RENAL WITH [id number] 08:35:00Reason for exam:->INCLUDE DOPPLERS AND PVR- for [...] MDReport Verified Date/Time: 11/14/2017 08:35:40 Reading Location: [address] Ultrasound Reading Room POCT-GLUCOSE [id number] 07:34:00 Test Item Value Reference Range Interpretation Comments POC-GLUCOSE METER 190 mg/dL 70-110 H TESTED AT [facility] (test code = [place] [facility] 1538) [address] [id number] 05:19:00 Test Item Value Reference Range Interpretation Comments MAGNESIUM (BEAKER) (test code = 2.0 mg/dL 1.6-2.6 627) BASIC METABOLIC [id number] 05:19:00 Test Item Value Reference Range Interpretation [...] PATIEN TS. CBC W/PLT COUNT & AUTO [id number] 05:00:00 Test Item Value Reference Range Interpretation [...] 0-1 PERCENT (BEAKER) (test code = 2801) [id number] 01:56:00 Test Item Value Reference Range Interpretation Comments PARTIAL THROMBOPLASTIN TIME 69.0 seconds 22.5-36.0 H (BEAKER) (test code = 760) POCT-GLUCOSE [id number] 22:07:00 Test Item Value Reference Range Interpretation Comments POC-GLUCOSE METER 185 mg/dL 70-110 H TESTED AT [facility] [address] ([facility]) (test code = [place] 15[address]) [address] [id number] 18:43:00 Test Item Value Reference Range Interpretation Comments PARTIAL THROMBOPLASTIN TIME 45.2 seconds 22.5-36.0 H (AKER) (test code = 760) [id number] 16:12:00 Test Item Value Reference Range Interpretation Comments THYROID STIMULATING HORMONE 0.53 uIU/mL 0.35-4.94 ([facility]) (test code = 772) RAD, CHEST, 1 VIEW, NON [id number] 15:33:00Reason for exam:->preopShould this be performed at the bedside?->YesFINAL REPORT EXAM: Frontal chest radiograph HISTORY PROVIDED: Preop COMPARISON: 11/12/2017 IMPRESSION:No focal consolidation, pneumothorax, or significant pleural fluid. The cardiomediastinal silhouette is within normal limits. No acute osseous abnormality. Degenerative changes of the spine are present. Signed: Clayton Banegas MDReport Verified Date/Time: 11/13/2017 15:33:28Reading Location: [facility] Mammo Reading Room Electronically signed by: CLAYTON BANEGAS on 11/03 03:33 [id number] 15:06:00 Test Item Value Reference Range Interpretation Comments PARTIAL THROMBOPLASTIN TIME 51.6 seconds 22.5-36.0 H ([facility]) (test code = 760) PROTHROMBIN [id number] 15:05:00 Test Item Value Reference Range Interpretation [...] INTERPRETATION (BEAKER) arachidonic acid (test code = 379437) suggests aspirin-like effect. [id number] Deven Mei MD (BEAKER) (test code = (rdffontqcr 4617) signature) PLATELET COUNT AGG 243 K/CU MM 150-450 (BEAKER) (test code = 2656) Platelet aggregation results may be falsely low with platelet counts<100,000/CU MM.CREATININE, RANDOM [id number] 06:28:00 Test Item Value Reference Range Interpretation Comments CREATININE URINE (BEAKER) (test 114.6 mg/dL code = 375) Reference Range: No NormalsPROTEIN, RANDOM [id number] 06:28:00 Test Item Value Reference Range Interpretation Comments PROTEIN, URINE (BEAKER) (test code = 30 mg/dL 0-14 H 1569) PH, [id number] 05:47:00 Test Item Value Reference Range Interpretation Comments PH VENOUS (BEAKER) (test code = 701) 7.40 7.32-7.42 VITAMIN D, 54-[id number] 04:52:00 Test Item Value Reference Range Interpretation Comments VITAMIN D 25-OH (BEAKER) (test 36.5 ng/mL 6.6-49.9 code = 2764) Effective 02/13/2017: Reference Range ChangeNew: 6.6-49.9 ng/mL Previous: 13.0-47.8 ng/mLRecommended Vitamin D Target Range: 30.0-40.0 ng/mLPTH, INTACT 2017-11-13 04:25:00 Test Item Value Reference Range Interpretation Comments PARATHYROID HORMONE INTACT 91.7 pg/mL 8.5-72.5 H (BEAKER) (test code = 577) [id number] 04:21:00 Test Item Value Reference Range Interpretation Comments PARTIAL THROMBOPLASTIN TIME 53.6 seconds 22.5-36.0 H (BEAKER) (test code = 760) URIC [id number] 04:20:00 Test Item Value Reference Range Interpretation Comments URIC ACID (BEAKER) (test code = 9.0 mg/dL 2.6-7.2 H 773) [id number] 04:20:00 Test Item Value Reference Range Interpretation Comments MAGNESIUM (BEAKER) (test code = 2.0 mg/dL 1.6-2.6 627) [id number] 04:20:00 Test Item Value Reference Range Interpretation Comments PHOSPHORUS (BEAKER) (test code = 3.1 mg/dL 2.3-4.7 604) BASIC METABOLIC [id number] 04:20:00 Test Item Value Reference Range Interpretation [...] PATIEN TS. CBC W/PLT COUNT & AUTO [id number] 04:06:00 Test Item Value Reference Range Interpretation [...] EOSINOPHILS ABSOLUTE COUNT 0.40 K/ L 0.04-0.54 ([facility]) (test code = 416) BASOPHILS ABSOLUTE COUNT ([facility]) 0.09 K/ L 0.01-0.08 H (test code = 417) IMMATURE GRANULOCYTES-RELATIVE 1 % 0-1 PERCENT ([facility]) (test code = 2801) [id number] 22:34:00 Test Item Value Reference Range Interpretation Comments PARTIAL THROMBOPLASTIN TIME 49.5 seconds 22.5-36.0 H ([facility]) (test code = 760) POCT-GLUCOSE [id number] 21:55:00 Test Item Value Reference Range Interpretation Comments POC-GLUCOSE METER 179 mg/dL 70-110 H TESTED AT [place] [address] ([facility]) (test code = [place] [facility] 1538) [address] RAD, CHEST, 1 VIEW, NON [id number] 17:03:00Reason for exam:->sobShould this be performed at the bedside?->YesFINAL REPORT CHEST AP PORTABLE History provided: Shortness of breath Comparison studies: None Heart size normal. Lungs grossly clear and vascularity normal. IMPRESSION: Grossly clear chest. Signed: Eboni Johnson [facility]epnorth [facility] Verified Date/Time: 11/12/2017 17:03:31 Reading Location: [address] Radiology Reading Room [id number] 15:41:00 Test Item Value Reference Range Interpretation Comments PARTIAL THROMBOPLASTIN TIME 41.3 seconds 22.5-36.0 H ([facility]) (test code = 760) POCT-GLUCOSE [id number] 11:50:00 Test Item Value Reference Range Interpretation Comments POC-GLUCOSE METER 218 mg/dL 70-110 H TESTED AT [facility] [address] ([facility]) (test code = [place] [facility] 1538) [address] PLATELET AGGREGATION: FUNCTION [id number] 10:14:00 Test Item Value Reference Range Interpretation Comments WEAK ADP 82 % 60-91 RESULT([facility]) (test code = 2135) PLATELET FUNCTION 60-100% indicates This is a corrected SCREEN INTERP normal platelet result. Pre vious (AKER) (test function result was 50 -59% code = 2173) indicates mild platelet dysfunction on 11/11/2017 at 192 1 CDT [facility]-PATHOLOGIST- Deven Mei MD 5815 (BEAKER) (electronic (test code = signature) 7321) PLATELET COUNT 283 K/CU MM 150-450 AGG (BEAKER) (test code = 2656) TROPONIN [id number] 08:02:00 Test Item Value Reference Range Interpretation [...] failure, acidosis, acute neurological disease, and persistent tachyarrhythmia.[id number] 07:55:00 Test Item Value Reference Range Interpretation Comments PARTIAL THROMBOPLASTIN TIME 42.7 seconds 22.5-36.0 H (BEAKER) (test code = 760) [id number] 07:55:00 Test Item Value Reference Range Interpretation Comments MAGNESIUM (BEAKER) (test code = 2.3 mg/dL 1.6-2.6 627) BASIC METABOLIC [id number] 07:55:00 Test Item Value Reference Range Interpretation [...] PATIEN TS. CBC W/PLT COUNT & AUTO [id number] 07:49:00 Test Item Value Reference Range Interpretation [...] PERCENT (BEAKER) (test code = 2801) POCT-GLUCOSE [id number] 07:33:00 Test Item Value Reference Range Interpretation Comments POC-GLUCOSE METER 159 mg/dL 70-110 H TESTED AT [facility] 67[address] (BEAKER) (test code = [place] 1538) [address] [id number] 00:57:00 Test Item Value Reference Range Interpretation Comments PARTIAL THROMBOPLASTIN TIME 47.6 seconds 22.5-36.0 H (BEAKER) (test code = 760) [id number] 00:40:00 Test Item Value Reference Range Interpretation Comments MAGNESIUM (BEAKER) 2.3 mg/dL 1.6-2.6 Specimen slightly (test code = 627) hemolyzed BASIC METABOLIC [id number] 00:40:00 Test Item Value Reference Range Interpretation [...] NOT APPLICABLE FOR DIALYSIS PATIEN TS. POCT-GLUCOSE [id number] 21:57:00 Test Item Value Reference Range Interpretation Comments POC-GLUCOSE METER 162 mg/dL 70-110 H TESTED AT [facility] 67[address] (BEAKER) (test code = [place] 1538) [address] HEMOGLOBIN [id number] 19:53:00 Test Item Value Reference Range Interpretation Comments HEMOGLOBIN A1C (BEAKER) (test code = 7.0 % 4.3-6.1 H 368) LIPID [id number] 18:10:00 Test Item Value Reference Range Interpretation [...] 130-159 High 160-189 Very High >=190BASIC METABOLIC [id number] 18:10:00 Test Item Value Reference Range Interpretation [...] APPLICABLE FOR DIALYSIS PATIEN TS. HEPATIC FUNCTION [id number] 18:10:00 Test Item Value Reference Range Interpretation [...] (test code = 24 U/L 6-55 347) [id number] 17:56:00 Test Item Value Reference Range Interpretation [...] PERCENT (BEAKER) (test code = 2801) POCT-GLUCOSE [id number] 16:49:00 Test Item Value Reference Range Interpretation Comments POC-GLUCOSE METER 128 mg/dL 70-110 H TESTED AT [facility] 6720 (BEAKER) (test code = [place] 1538) [address]
[2020-09-17 02:23] LABS: Absolute Lymphocytes (CBC) 1.3 K/uL (0.7-4.9); Basophils % 0.6 % (0-1.3); Hematocrit 35.9 % (39.6-49.0); Lymphocytes % 11.1 % (15.3-44.8); MPV 8.9 fL (7.6-11.3); RBC Red Blood Cell Count 4.07 M/uL (4.33-5.43)
[2020-09-17] MEDS ORDERED: FUROSEMIDE 40 MG/4 ML VIAL ONE (02:25)
[2020-09-17 02:27] LABS: Protime INR 1.58
[2020-09-17 02:41] LABS: ALT/SGPT 20 U/L (12-78); AST/SGOT 10 U/L (15-37); Albumin 3.3 g/dL (3.4-5.0); Alkaline Phosphatase 79 U/L (45-117); BUN Blood Urea Nitrogen 28 mg/dL (7-18); Bicarbonate 30 mmol/L (21-32); Bilirubin Direct < 0.1 mg/dL (0-0.2); Bilirubin Total 0.3 mg/dL (0.2-1.0); Glucose Level 200 mg/dL (74-106); NT PRO-BNP 2892 pg/mL (<125); Potassium 4.1 mmol/L (3.5-5.1); Protein, Total 6.9 g/dL (6.4-8.2); Sodium Level 145 mmol/L (136-145); Troponin (Emerg Dept Use Only) 0.03 ng/mL (0.0-0.045)
--- NOTE | 2020-09-17 03:16 | EDPHYS ---
Physician Documentation [facility] Name: Ludwin Hsu Age: 69 yrs Sex: Male : 1950 Arrival Date: 09/17/2020 Time: 02:00 Bed 3 Private MD: ED Physician Jose Monaco HPI: 09/17 02:32 This 69 yrs old Male presents to ER via EMS with complaints of Respiratory mh7 Distress. 02:32 The patient has shortness of breath at rest. Onset: The symptoms/episode began/occurred mh7 just prior to arrival, today. Duration: The symptoms are continuous, but are steadily getting better. The patient's shortness of breath is aggravated by nothing, is alleviated by application of supplemental oxygen. Associated signs and symptoms: Pertinent negatives: chest pain, non-productive cough, productive cough, diaphoresis, dizziness, fever, hemoptysis, loss of consciousness, nausea, numbness in extremities, visual changes, vomiting. Severity of symptoms: At their worst the symptoms were moderate today, in the emergency department the symptoms have improved moderately. Historical: - Allergies: 02:13 NKA; iw - Home Meds: 02:13 albuterol sulfate 90 mcg/actuation Inhl HFAA 1 puff every 6 hours [Active]; amiodarone iw 200 mg Oral tab [Active]; aripiprazole 30 mg Oral tab 1 tab once daily [Active]; aspirin 81 mg Oral chew 1 tab once daily [Active]; atorvastatin 40 mg Oral tab 1 tab once daily [Active]; bupropion HCl 100 mg Oral tab daily [Active]; carvedilol 25 mg Oral tab 1 tab 2 times per day [Active]; clopidogrel 75 mg Oral tab 1 tab once daily [Active]; furosemide 80 mg Oral tab 1 tab once daily [Active]; gabapentin 400 mg Oral cap 1 cap 3 times per day [Active]; glipizide 5 mg Oral tr24 2 tabs once daily [Active]; losartan 50 mg Oral tab 1 tab once daily [Active]; metformin 1,000 mg Oral tab 1 tab 2 times per day [Active]; metolazone 5 mg Oral tab 1 tab once daily [Active]; nifedipine 60 mg Oral TbER 1 tab once daily [Active]; pantoprazole 40 mg Oral TbEC 1 tab once daily [Active]; trazodone 100 mg Oral tab 1 tab at bedtime [Active]; Xarelto 20 mg Oral tab 1 tab once daily [Active]; - PMHx: 02:13 arteriosclerosis; CHF; chronic back pain; COPD; Diabetes - NIDDM; Hypertension; kidney iw disease; malignant neoplasm of epidimyis; Myocardial infarction; Pancreatitis; PTSD; tinnitus; - PSHx: 02:13 heart bypass; iw - Immunization history:: Adult Immunizations unknown. - Social history:: Smoking status: unknown. ROS: 02:32 Constitutional: Negative for fever, chills, and weight loss, Eyes: Negative for injury, mh7 pain, redness, and discharge, ENT: Negative for injury, pain, and discharge, Neck: Negative for injury, pain, and swelling, Cardiovascular: Negative for chest pain, palpitations, and edema, Abdomen/GI: Negative for abdominal pain, nausea, vomiting, diarrhea, and constipation, Back: Negative for injury and pain, : Negative for injury, bleeding, discharge, and swelling, MS/Extremity: Negative for injury and deformity, Skin: Negative for injury, rash, and discoloration, Neuro: Negative for headache, weakness, numbness, tingling, and seizure, Psych: Negative for depression, anxiety, suicide ideation, homicidal ideation, and hallucinations, Allergy/Immunology: Negative for hives, rash, and allergies, Endocrine: Negative for neck swelling, polydipsia, polyuria, polyphagia, and marked weight changes, Hematologic/Lymphatic: Negative for swollen nodes, abnormal bleeding, and unusual bruising. Exam: 02:32 Head/Face: Normocephalic, atraumatic. Eyes: Pupils equal round and reactive to light, mh7 extra-ocular motions intact. Lids and lashes normal. Conjunctiva and sclera are non-icteric and not injected. Cornea within normal limits. Periorbital areas with no swelling, redness, or edema. Neck: Trachea midline, no thyromegaly or masses palpated, and no cervical lymphadenopathy. Supple, full range of motion without nuchal rigidity, or vertebral point tenderness. No Meningismus. Chest/axilla: Normal chest wall appearance and motion. Nontender with no deformity. No lesions are appreciated. 02:32 Abdomen/GI: Soft, non-tender, with normal bowel sounds. No distension or tympany. No guarding or rebound. No evidence of tenderness throughout. Back: No spinal tenderness. No costovertebral tenderness. Full range of motion. Skin: Warm, dry with normal turgor. Normal color with no rashes, no lesions, and no evidence of cellulitis. MS/ Extremity: Pulses equal, no cyanosis. Neurovascular intact. Full, normal range of motion. Neuro: Awake and alert, GCS 15, oriented to person, place, time, and situation. Cranial nerves II-XII grossly intact. Motor strength 5/5 in all extremities. Sensory grossly intact. Cerebellar exam normal. Normal gait. Psych: Awake, alert, with orientation to person, place and time. Behavior, mood, and affect are within normal limits. 02:32 Constitutional: The patient appears alert, awake, in obvious distress, moderately distressed. 02:32 Cardiovascular: Rate: normal, Rhythm: irregularly irregular, Pulses: no pulse deficits are appreciated, Heart sounds: normal, normal S1and S2, Edema: pedal edema, that is mild, JVD: is not appreciated. 02:32 Respiratory: moderate respiratory distress is noted, Respirations: prolonged exhalation, that is mild, tachypnea, that is mild, Breath sounds: rales, that are moderate, are scattered, rhonchi, that are moderate, are scattered, Respiratory rate: 23 Vital Signs: 02:14 BP 120 / 73; Pulse 97; Resp 23; Pulse Ox 100% on BiPAP; iw 04:00 BP 114 / 75; Pulse 76; Resp 16; Pulse Ox 100% on BiPAP; ea MDM: 03:12 Differential diagnosis: Anemia Anxiety Reaction asthma, Bronchitis CHF exacerbation, mh7 Chronic Obstructive Pulmonary Disease Myocardial Infarction pneumonia, pulmonary edema. Data reviewed: vital signs, nurses notes, EMS record, old medical records, lab test result(s), cardiac enzymes, CBC, electrolytes, EKG, radiologic studies, plain films. Data interpreted: Pulse oximetry: on BiPAP is 100 %. Interpretation: acceptable. Counseling: I had a detailed discussion with the patient and/or guardian regarding: the historical points, exam findings, and any diagnostic results supporting the discharge/admit diagnosis, lab results, radiology results, the need for further work-up and treatment in the hospital. Response to treatment: the patient's symptoms have markedly improved after treatment. 03:14 Patient medically screened. [facility] 09/17 02:05 Order name: Basic Metabolic Panel [facility] 09/17 02:05 Order name: CBC with Diff [facility] 09/17 02:05 Order name: LFT's [facility] 09/17 02:05 Order name: Magnesium; Complete Time: 02:48 7 09/17 02:05 Order name: NT PRO-BNP; Complete Time: 02:48 7 09/17 02:05 Order name: PT-INR; Complete Time: 02:48 7 09/17 02:05 Order name: Troponin (emerg Dept Use Only); Complete Time: 02:48 7 09/17 02:05 Order name: XRAY Chest (1 view); Complete Time: 18:19 7 09/17 02:06 Order name: Basic Metabolic Panel; Complete Time: 02:48 EDMS 09/17 02:06 Order name: CBC with Automated Diff; Complete Time: 02:48 EDMS 09/17 02:06 Order name: Liver (Hepatic) Function; Complete Time: 02:48 EDMS 09/17 03:56 Order name: SARS-COV-2 RT PCR; Complete Time: 18:19 EDMS 09/17 02:05 Order name: EKG; Complete Time: 02:07 09/17 02:05 Order name: Cardiac monitoring; Complete Time: 02:15 [facility] 09/17 02:05 Order name: EKG - Nurse/Tech; Complete Time: 02:15 09/17 02:05 Order name: IV Saline Lock; Complete Time: 02:17 7 09/17 02:05 Order name: Labs collected and sent; Complete Time: 02:18 [facility] 09/17 02:05 Order name: O2 Per Protocol; Complete Time: 02:18 09/17 02:05 Order name: O2 Sat Monitoring; Complete Time: 02:15 mh7 Administered Medications: 02:17 Drug: Lasix (furosemide) 40 mg Route: IVP; Site: right hand; ea 03:02 Follow up: Response: No adverse reaction iw Disposition: 09/17/20 03:14 Hospitalization ordered by Jaydon Younger for Inpatient Admission. 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 - Bed requested for Telemetry/MedSurg (Inpatient). - Status is Inpatient Admission. ea - Condition is Stable. - Problem is an acute exacerbation. - Symptoms have improved. Signatures: Dispatcher [employer] EDIA Micheline Pop, RN Mimi Yang RN RN cg Antunez, Elena, RN RN ea Holmes, Maurice, MD MD mh7 Corrections: (The following items were deleted from the chart) 03:13 02:17 CORONAVIRUS+[email or web address] ordered. [facility] EDIA 05:00 03:14 Hospitalization Ordered by Jaydon Younger DO for Inpatient Admission. 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 Bed requested for Telemetry/MedSurg (Inpatient). Status is Inpatient Admission. Condition is Stable. Problem is an acute exacerbation. Symptoms have improved. mh7 06:07 05:00 09/17/2020 03:14 Hospitalization Ordered by Jaydon Younger DO for Inpatient ea Admission. 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 Bed requested for Telemetry/MedSurg (Inpatient). Status is Inpatient Admission. Condition is Stable. Problem is an acute exacerbation. Symptoms have improved. cg
--- NOTE | 2020-09-17 04:30 | P.HP ---
Certification for Inpatient Patient admitted to: Inpatient With expected LOS: >2 Midnights Patient will require the following post-hospital care: None Practitioner: I am a practitioner with admitting privileges, knowledge of patient current condition, hospital course, and medical plan of care. Services: Services provided to patient in accordance with Admission requirements found in Title 42 Section 412.3 of the Code of Federal Regulations Patient History Date of Service: 09/17/20 Reason for admission: CHF exacerbation History of Present Illness: 69-year-old male with history of chronic systolic congestive heart failure, CAD status post CABG, COPD, diabetes mellitus type 2, hypertension, hyperlipidemia, COPD presents emergency department for shortness of breath. Patient reports being a woken from sleeping with severe shortness of breath, EMS was called and patient was transferred to the emergency department for evaluation. Evaluation in the emergency department, labs significant for white blood cell count 12.1 hemoglobin 9.6 hematocrit 35.9 creatinine 1.56 GFR 44, patient baseline appears to be around 50-60 BNP 2892, troponin 0.03 chest x-ray appears does demonstrate volume overload status. Patient on BiPAP at this time breathing easily, patient given 40 of Lasix in the emergency department and has been diuresing well. ED provider wishes to admit for CHF exacerbation. Allergies No Known Allergies Allergy (Verified 08/28/20 15:19) Home Medications: Gabapentin [Neurontin*] 1,200 mg PO TID 12/02/16 Aspirin 81 mg PO DAILY 11/10/17 carvediloL [Coreg*] 25 mg PO BID 11/10/17 glipiZIDE [Glucotrol] 10 mg PO DAILY 11/10/17 Metformin ER [Glucophage ER*] 1,000 mg PO BID 02/17/18 Amiodarone HCl 100 mg PO BID 08/28/20 Aripiprazole [Abilify] 30 mg PO DAILY 08/28/20 Atorvastatin Calcium [Lipitor] 40 mg PO BEDTIME 08/28/20 Furosemide [Lasix*] 40 mg PO DAILY 08/28/20 Losartan Potassium [Cozaar] 50 mg PO DAILY 08/28/20 Rivaroxaban [Xarelto*] 20 mg PO DAILY 08/28/20 buPROPion HCL [Bupropion HCl] 100 mg PO DAILY 08/28/20 Albuterol Neb [Proventil 0.083% Neb Soln] 2.5 mg NEB [id number] PRN #120 amp 08/29/20 Cefuroxime Axetil [Cefuroxime] 500 mg PO BID #10 tab 08/29/20 Fluticasone/Umeclidin/Vilanter [Trelegy Ellipta 200-62.5-25] 1 each IH DAILY #30 blst.w.dev 08/29/20 Ipratropium Neb [Atrovent*] 0.5 mg NEB [id number] PRN #120 amp 08/29/20 Nebulizer [Aeroneb Go Nebulizer] 1 each MC Q6H #1 each 08/29/20 predniSONE [Deltasone] 40 mg PO DAILY #5 tab 08/29/20 - Past Medical/Surgical History Diabetic: Yes -: Hypertension -: Diabetes mellitus type 2 -: Posttraumatic stress disorder -: Anxiety -: Hepatitis-C -: Hyperlipidemia -: CAD, stent placement x2 -: Obstructive sleep apnea -: Obesity -: Diabetic neuropathy -: History pancreatitis -: COPD, tobacco abuse -: 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 - Family History Father -: Other (see notes) Notes: CHF Mother -: Cancer Notes: breast cancer Sister -: Cancer Notes: colon cancer Brother -: Cancer Notes: throat cancer - Social History Smoking Status: Former smoker Alcohol use: No CD- Drugs: No Caffeine use: Yes Place of Residence: Home Review of Systems 10-point ROS is otherwise unremarkable Respiratory: Cough, Shortness of Breath, SOB with Excertion Physical Examination - Physical Exam General: Alert, In no apparent distress, Oriented x3 HEENT: Atraumatic, Normocephalic Neck: Supple Respiratory: Crackles/rales, Other (Patient on BiPAP respiratory effort mildly labor) Cardiovascular: Regular rate/rhythm, Normal S1 S2, Edema (1+ pitting edema bilateral lower extremities) Capillary refill: <2 Seconds Gastrointestinal: Normal bowel sounds, No tenderness, No masses, No rebound Musculoskeletal: No contractures, No erythema, No tenderness Integumentary: No significant lesion, No tenderness/swelling, No erythema Neurological: Normal strength at 5/5 x4 extr, Normal tone, Sensation intact - Studies Laboratory Data (last 24 hrs) 09/17/20 02:10: PT 18.2 H, INR 1.58 09/17/20 02:10: WBC 12.10 H, Hgb 11.6 L, Hct 35.9 L, Plt Count 179 09/17/20 02:10: Sodium 145, Potassium 4.1, BUN 28 H, Creatinine 1.56 H, Glucose 200 H, Magnesium 2.0, Total Bilirubin 0.3, AST 10 L, ALT 20, Alkaline Phosphatase 79 Assessment and Plan - Plan Assessment Acute hypoxic respiratory failure secondary to acute on chronic systolic congestive heart failure with volume overload CAD s/p CABG Atrial fibrillation on chronic anticoagulation therapy Acute kidney injury Diabetes mellitus type 2 COPD Hypertension, hyperlipidemia Plan Acute hypoxic respiratory failure secondary to acute on chronic systolic congestive heart failure with volume overload: Patient reports taking Lasix 40 mg p.o. daily, will increase to Lasix IV 40 mg t.i.d., strict intake output/daily weights, 1500 cc per day fluid restriction. Last echocardiogram 2017 demonstrates ejection fraction around 30%, will consult cardiology. Continue with BiPAP as necessary to maintain saturations/respiratory effort. DVT prophylaxis continue patient's Xarelto. CAD s/p CABG: Continue as above, continue patient's home medications. Atrial fibrillation on chronic anticoagulation therapy: Rate controlled at this time, continue patient's home medications including Xarelto. Acute kidney injury: Patient's baseline GFR appears to be between 50 and 60, currently in the 40s, will consult Nephrology suspect CRS. Continue with IV diuresis. Appreciate further input from nephrology. Diabetes mellitus type 2: A.c. HS Accu-Cheks, sliding scale insulin therapy. A1c with morning labs. COPD: Patient not moving not aware but does not sound to be wheezing at this time, will provide patient with p.r.n. inhalers, initiate steroid therapy if deemed necessary. Hypertension, hyperlipidemia: Stable continue home meds. Discharge Plan: Home Plan to discharge in: Greater than 2 days - Advance Directives Does patient have a Living Will: No Does patient have a Durable POA for Healthcare: No - Code Status/Comfort Care Code Status Assessed: Yes (Full code) Critical Care: No Time Spent Managing Pts Care (In Minutes): 55
[2020-09-17] MEDS ORDERED: ALBUTEROL 2.5 MG/3 ML NEB SOL NEB PRN (05:13)
[2020-09-17] MEDS ORDERED: ONDANSETRON 4 MG/2 ML VIAL IV PRN (05:13)
[2020-09-17] MEDS ORDERED: ACETAMINOPHEN 500 MG TAB PO PRN (05:13)
--- NOTE | 2020-09-17 06:07 | ER ---
Nurse's Notes [facility] Name: Ludwin Hsu Age: 69 yrs Sex: Male : 1950 Arrival Date: 09/17/2020 Time: 02:00 Bed 3 Private MD: Diagnosis: Acute combined systolic (congestive) and diastolic (congestive) heart failure Presentation: 09/17 02:09 Chief complaint: EMS states: respiratory distress X 30 minutes [employer]RO[employer] , SpO2 in 80s , pt iw was diaphoretic, placed on CPAP, hx of CHF, EMS administered 2 inch Nitro paste, removed [employer] due to drop in BP, 2 A\T\A breathing tx given. Coronavirus screen: shortness of breath. Ebola Screen: Patient negative for fever greater than or equal to 101.5 degrees Fahrenheit, and additional compatible Ebola Virus Disease symptoms Patient denies exposure to infectious person. Patient denies travel to an Ebola-affected area in the 21 days before illness onset. No symptoms or risks identified at this time. Initial Sepsis Screen: Does the patient meet any 2 criteria? No. Patient's initial sepsis screen is negative. Does the patient have a suspected source of infection? No. Patient's initial sepsis screen is negative. Risk Assessment: Do you want to hurt yourself or someone else? Patient reports no desire to harm self or others. Onset of symptoms was September 17, 2020. 02:09 Method Of Arrival: EMS: [facility] iw 02:09 Acuity: NGUYEN 2 iw Triage Assessment: 02:15 General: Appears uncomfortable. Respiratory: Reports shortness of breath Onset: The ea symptoms/episode began/occurred this morning, the patient has moderate shortness of breath. Historical: - Allergies: 02:13 NKA; iw - Home Meds: 02:13 albuterol sulfate 90 mcg/actuation Inhl HFAA 1 puff every 6 hours [Active]; amiodarone iw 200 mg Oral tab [Active]; aripiprazole 30 mg Oral tab 1 tab once daily [Active]; aspirin 81 mg Oral chew 1 tab once daily [Active]; atorvastatin 40 mg Oral tab 1 tab once daily [Active]; bupropion HCl 100 mg Oral tab daily [Active]; carvedilol 25 mg Oral tab 1 tab 2 times per day [Active]; clopidogrel 75 mg Oral tab 1 tab once daily [Active]; furosemide 80 mg Oral tab 1 tab once daily [Active]; gabapentin 400 mg Oral cap 1 cap 3 times per day [Active]; glipizide 5 mg Oral tr24 2 tabs once daily [Active]; losartan 50 mg Oral tab 1 tab once daily [Active]; metformin 1,000 mg Oral tab 1 tab 2 times per day [Active]; metolazone 5 mg Oral tab 1 tab once daily [Active]; nifedipine 60 mg Oral TbER 1 tab once daily [Active]; pantoprazole 40 mg Oral TbEC 1 tab once daily [Active]; trazodone 100 mg Oral tab 1 tab at bedtime [Active]; Xarelto 20 mg Oral tab 1 tab once daily [Active]; - PMHx: 02:13 arteriosclerosis; CHF; chronic back pain; COPD; Diabetes - NIDDM; Hypertension; kidney iw disease; malignant neoplasm of epidimyis; Myocardial infarction; Pancreatitis; PTSD; tinnitus; - PSHx: 02:13 heart bypass; iw - Immunization history:: Adult Immunizations unknown. - Social history:: Smoking status: unknown. Screenin:15 Abuse screen: Denies threats or abuse. Nutritional screening: No deficits noted. ea Tuberculosis screening: No symptoms or risk factors identified. Fall Risk IV access (20 points). Assessment: 02:16 Reassessment: Pt placed on BiPAP tolerating well. General: Appears uncomfortable, ea Behavior is appropriate for age. Pain: Denies pain. Neuro: Level of Consciousness is awake, alert, obeys commands, Oriented to person, place, time. Cardiovascular: Patient's skin is warm and dry. Respiratory: Airway is patent Respiratory effort is labored, Respiratory pattern is tachypnea Patient placed on BiPAP:. Derm: Skin is pink, warm \T\ dry. 04:49 Reassessment: Patient and/or family updated on plan of care and expected duration. Pain ea level reassessed. Pt remains on BiPAP pt tolerating well. 05:09 Reassessment: Patient and/or family updated on plan of care and expected duration. Pain ea level reassessed. Report given to receiving nurse. Vital Signs: 02:14 BP 120 / 73; Pulse 97; Resp 23; Pulse Ox 100% on BiPAP; iw 04:00 BP 114 / 75; Pulse 76; Resp 16; Pulse Ox 100% on BiPAP; ea ED Course: 02:00 Patient arrived in ED. iw 02:03 Jose Monaco MD is Attending Physician. 7 02:11 Triage completed. iw 02:13 Arm band placed on. iw 02:15 Corazon Weaver, RN is Primary Nurse. ea 02:15 Inserted saline lock: 20 gauge in right hand, using aseptic technique. Blood collected. ea Maintain EMS IV. Dressing intact. Good blood return noted. Site clean \T\ dry. Gauge \T\ site: 18G RAC. 02:16 Patient has correct armband on for positive identification. Bed in low position. Call ea light in reach. Side rails up X2. credit card analyst on. Pulse ox on. NIBP on. 02:33 XRAY Chest (1 view) In Process Unspecified. EDMS 03:14 Jaydon Younger DO is Hospitalizing Provider. [facility] 04:51 No provider procedures requiring assistance completed. Patient admitted, IV remains in ea place. Administered Medications: 02:17 Drug: Lasix (furosemide) 40 mg Route: IVP; Site: right hand; ea 03:02 Follow up: Response: No adverse reaction iw Outcome: 03:14 Decision to Hospitalize by Provider. 7 04:51 Instructed on the need for admit, Demonstrated understanding of instructions. ea 06:06 Admitted to Med/surg accompanied by tech, via stretcher, room 229, with oxygen, with ea chart, Report called to Receiving nurse on second floor 06:06 Condition: stable 06:07 Patient left the ED. ea Signatures: Dispatcher [employer] EDMicheline Larson RN RN iw Antunez, Elena, Jose Du RN, ea, MD MD [facility]
[2020-09-17] MEDS ORDERED: INSULIN -REGULAR HUMAN 50 UNIT/0.5 ML ML SQ SCH (07:30)
[2020-09-17] MEDS ORDERED: D50W 25 GM/50 ML SYRINGE IV ONE (07:43)
--- NOTE | 2020-09-17 07:55 | RAD REPORT ---
EXAM DESCRIPTION: [facility] Single View09/17/2020 2:35 am CLINICAL HISTORY: Shortness of breath COMPARISON: August 2020 FINDINGS: Mild bilateral pulmonary opacities. Heart is mildly enlarged. Postsurgical changes involve the chest IMPRESSION: These findings probably indicate mild CHF
[2020-09-17 08:02] LABS: Thyroid Stimulating Hormone 0.639 uIU/mL (0.360-3.740); Troponin I 0.08 ng/mL (0.0-0.045)
[2020-09-17] MEDS: FUROSEMIDE 40 MG/4 ML VIAL IV SCH ×3 (08:41→20:31)
[2020-09-17] MEDS ORDERED: FUROSEMIDE 40 MG/4 ML VIAL IV SCH ×2 (09:00)
[2020-09-17] MEDS ORDERED: ENOXAPARIN 40 MG/0.4 ML SQ SCH (09:00)
--- NOTE | 2020-09-17 09:03 | P.PN ---
Subjective Date of Service: 09/17/20 Chief Complaint: CHF exacerbation Subjective: Other (Patient stable at this time. Currently on BiPAP30%) Physical Examination - Vital Signs Temperature: 96.5 F Blood Pressure: 157/83 Pulse: 66 Respirations: 15 Pulse Ox (%): 98 - Studies Laboratory Data (last 24 hrs) 09/17/20 02:10: PT 18.2 H, INR 1.58 09/17/20 02:10: WBC 12.10 H, Hgb 11.6 L, Hct 35.9 L, Plt Count 179 09/17/20 02:10: Sodium 145, Potassium 4.1, BUN 28 H, Creatinine 1.56 H, Glucose 200 H, Magnesium 2.0, Total Bilirubin 0.3, AST 10 L, ALT 20, Alkaline Phosphatase 79 Assessment & Plan Discharge Plan: Home Plan to discharge in: 72 Hours Physician Review Additional Text: Physical Exam: GENERAL: Patient alert, cooperative. Currently on BiPAP at FiO2 at 30%. VITAL SIGNS: [Reviewed] HEENT: Head normocephalic and atraumatic. NECK: [Supple. No carotid bruits. No lymphadenopathy or thyromegaly.] LUNGS: Decreased at the bases with some crackles. HEART: Regular rate and rhythm ABDOMEN: [Soft, nontender, and nondistended. Positive bowel sounds. No hepatosplenomegaly was noted.] EXTREMITIES: No significant edema to the lower extremities. NEUROLOGIC: Patient alert, cooperative SKIN: [Normal color, turgor and temperature. No ulcerations or rashes noted.] Impression: Acute hypoxic respiratory failure secondary to acute on chronic systolic congestive heart failure with volume overload CAD s/p CABG Atrial fibrillation on chronic anticoagulation therapy Acute kidney injury Diabetes mellitus type 2 with hypoglycemia COPD Hypertension Hyperlipidemia Chronic renal disease stage III Plan Acute hypoxic respiratory failure secondary to acute on chronic systolic congestive heart failure with volume overload: Continue with aggressive IV diuresis. Continue Lasix 40 mg 3 times a day. Monitor strict input and output and daily weights. Continue 1500 cc/day fluid restriction. Last echocardiogram 2017 showed EF of 30%. We will obtain echocardiogram. Consult cardiology for further recommendation. Will need to obtain restart home medication. Continue Xarelto. Respiratory to decrease BiPAP. Recheck chest x-ray tomorrow. Continue with current plan of care. Will need to discuss with patient and family in the next couple of days for discharge planning and advance care planning. CAD s/p CABG: Need to obtain restart home medication.. Atrial fibrillation on chronic anticoagulation therapy: Rate controlled at this time, continue patient's home medications including Xarelto. Acute kidney injury: Patient's baseline GFR appears to be between 50 and 60, currently in the 40s, will consult Nephrology suspect CRS. Continue with IV diuresis. Appreciate further input from nephrology. Diabetes mellitus type 2 with hypoglycemia: Courage oral intake. D50 given this morning. Accu-Cheks in place. Will monitor for further hypoglycemia. Will need to make changes to his medications. Check A1c. COPD: Continue with COPD medication. Will consult pulmonology to help with his condition. Hypertension: We will need to obtain restart home medication. Hyperlipidemia: Stable continue home meds. Chronic renal disease stage III: We will consult nephrology to further evaluate. Await recommendations. Code Status: [Full Code] DVT prophylaxis: Patient on Xarelto for atrial fibrillation Advanced Care Planning-30 minutes: We will need to discuss plan of care for his discharge in the next several days when he is more alert. Also discussed with family. Time Spent Managing Pts Care (In Minutes): 55
[2020-09-17] MEDS ORDERED: LEVALBUTEROL 0.63 MG/3 ML NEB NEB PRN (09:31)
[2020-09-17 09:51] LABS: Urine Appearance CLEAR (Clear); Urine Bilirubin NEGATIVE (Negative); Urine Blood NEGATIVE (Negative); Urine Color YELLOW (Yellow); Urine Glucose NEGATIVE (Negative); Urine Protein NEGATIVE (Negative); Urine Specific Gravity <=1.005 (1.005-1.030); Urine Urobilinogen 0.2 mg/dL (0.2-1.0); Urine pH 6.5 (5.0-7.0)
[2020-09-17 09:52] LABS: Urine Microscopic Reflex NO UMIC
--- NOTE | 2020-09-17 11:23 | P.CNS ---
Date of Consult: 09/17/20 Reason for Consult: Congestive heart failure Chief Complaint: CHF exacerbation History of Present Illness: Patient is 69 years of age a CO patient has a history of congestive heart failure coronary artery disease COPD presented to the emergency room with acute onset of shortness of breath he is on bronchodilators at home he had he was in significant respiratory distress has improved doing well on nasal cannula oxygen labs reviewed Allergies No Known Allergies Allergy (Verified 08/28/20 15:19) Home Medications: Gabapentin [Neurontin*] 3 cap PO TID 12/02/16 Aspirin 81 mg PO DAILY 11/10/17 carvediloL [Coreg*] 25 mg PO BID 11/10/17 glipiZIDE [Glucotrol] 10 mg PO DAILY 11/10/17 Metformin ER [Glucophage ER*] 1,000 mg PO BID 02/17/18 Amiodarone HCl 100 mg PO DAILY 08/28/20 Aripiprazole [Abilify] 30 mg PO DAILY 08/28/20 Atorvastatin Calcium [Lipitor] 40 mg PO BEDTIME 08/28/20 Furosemide [Lasix*] 40 mg PO DAILY 08/28/20 Losartan Potassium [Cozaar] 100 mg PO DAILY 08/28/20 Rivaroxaban [Xarelto*] 20 mg PO DAILY 6PM 08/28/20 Albuterol Neb [Proventil 0.083% Neb Soln] 2.5 mg NEB [id number] PRN #120 amp 08/29/20 Budesonide/Formoterol Fumarate [Symbicort 160-4.5 Mcg Inhaler] 1 puff IH DAILY PRN 09/17/20 - Past Medical/Surgical History Diabetic: Yes -: Hypertension -: Diabetes mellitus type 2 -: Posttraumatic stress disorder -: Anxiety -: Hepatitis-C -: Hyperlipidemia -: CAD, stent placement x2 -: Obstructive sleep apnea -: Obesity -: Diabetic neuropathy -: History pancreatitis -: COPD, tobacco abuse -: 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 - Family History Father Medical History: Other (see notes) Notes: CHF Mother Medical History: Cancer Notes: breast cancer Sister Medical History: Cancer Notes: colon cancer Brother Medical History: Cancer Notes: throat cancer - Social History Smoking Status: Unknown if ever smoked Alcohol use: No CD- Drugs: No Caffeine use: Yes Place of Residence: Home Review of Systems 10-point ROS is otherwise unremarkable General: Weakness Respiratory: Shortness of Breath Physical Examination Temp Pulse Resp BP Pulse Ox 96.5 F L 66 15 157/83 H 98 09/17/20 09:05 09/17/20 09:05 09/17/20 09:05 09/17/20 09:05 09/17/20 09:05 General: Alert, In no apparent distress, Oriented x3 Respiratory: Clear to auscultation bilaterally Cardiovascular: No edema, Irregular heart rate/rhythm Gastrointestinal: Normal bowel sounds, Soft and benign Laboratory Data (last 24 hrs) 09/17/20 02:10: PT 18.2 H, INR 1.58 09/17/20 02:10: WBC 12.10 H, Hgb 11.6 L, Hct 35.9 L, Plt Count 179 09/17/20 02:10: Sodium 145, Potassium 4.1, BUN 28 H, Creatinine 1.56 H, Glucose 200 H, Magnesium 2.0, Total Bilirubin 0.3, AST 10 L, ALT 20, Alkaline Phosphatase 79 - Problems (1) CHF (congestive heart failure) Current Visit: No Status: Acute Plan: Patient is 69 years of age admitted with presumed acute on chronic congestive heart failure patient has renal failure not sure is acute or chronic minimally elevated white count chest x-ray shows some interstitial changes BNP is also elevated final signs stable initially he required CPAP is now on nasal cannula oxygen patient is on Lasix he has COPD maximize treatment with bronchodilators echocardiogram is being patient patient is already anti coagulated add prednisone also on high dose Lasix I have added low-dose spironolactone possible discharge tomorrow he has severe congestive heart failure probably has underlying secondary pulmonary hypertension patients with heart failure often deteriorate with treatment for pulmonary hypertension Qualifiers: Qualified Code(s): I50.33 - Acute on chronic diastolic (congestive) heart failure
[2020-09-17] MEDS: predniSONE 20 MG TAB PO SCH ×2 (13:13→20:31)
[2020-09-17] MEDS: AMIODARONE HCL 200 MG TAB PO SCH (13:13)
[2020-09-17] MEDS: SPIRONOLACTONE 25 MG TABLET PO SCH (13:14)
[2020-09-17] MEDS: GABAPENTIN 400 MG CAP PO SCH ×2 (13:15→20:30)
[2020-09-17] MEDS: LOSARTAN POTASSIUM 50 MG TABLET PO SCH (16:43)
[2020-09-17] MEDS: RIVAROXABAN 10 MG TABLET PO SCH (16:45)
--- NOTE | 2020-09-17 17:23 | CON ---
Date of Consultation: 09/17/2020 Reason For Consultation: Congestive heart failure. History Of Present Illness: This patient is a 69-year-old white male with history of coronary artery disease, post 3 vessel CABG 2 years ago, history of COPD, diabetes, hypertension, congestive heart f ailure, dyslipidemia, presented with worsening shortness of breath, lower extremity edema, and orthop kim. Denies having any chest pain. The patient has chronic kidney disease with creatinine is around 1.6, required BiPAP for a short period of time after IV Lasix. The patient is feeling better and of f BiPAP, speaking full sentences. Past Medical History: As outlined above in HPI. Medications: Refer to reconciliation sheet for detailed list. Past Surgical History: Cardiac stent placement in 2014 and coronary artery bypass surgery in 2019. Medications: Refer to reconciliation sheet for detailed list. Allergies: NO KNOWN DRUG ALLERGIES. Family History: No premature coronary artery disease or cancer. Social History: He does not smoke or drink. Does not use any drugs. Review of Systems: All systems reviewed and they were negative except for what is mentioned in the HPI. Physical Examination: Vital Signs: Temperature is 97.3, pulse 72, breathing 16, blood pressure 116/72, saturating 98% on 2 L nasal cannula. General: Pleasant elderly male, in no distress. Head and Neck: Pupils are equal, reactive to light. Intact eye movements. Mild JVD elevation. Lungs: Crackles in both bases. No accessory muscle use. Muscle retraction appears to be comfortabl e. Heart: Regular with no extra sounds. Abdomen: Soft, nontender. Bowel sounds positive. No organomegaly. No masses or hernia. No rigidi ty or rebound. Extremities: No clubbing, cyanosis. Intact pulses. No significant edema found on today's exam. Neurologic: Alert, awake, oriented x3. No acute focal deficits appreciated. Investigations: BUN is 28, creatinine 1.56. Troponin 0.08 with a BNP of 2892. Hemoglobin is 11.6. The chest x-ray, CHF pattern. Assessment And Recommendations: 1.Cviph-kz-knqcalo congestive heart failure exacerbation, unknown ejection fraction. Last echo in . His EF was low, so likely this is [id number] systolic heart failure exacerbation. I woul d continue Lasix 40 mg IV q.12 hours. Monitor BUN, creatinine, electrolytes. The patient is already improving. 2.Acute respiratory failure due to congestive heart failure exacerbation. This is resolved, and off BiPAP. 3.Atrial fibrillation, on amiodarone and Xarelto and heart rate is controlled. Continue current man agement. Thank you for the consult. /PARTH Voice ID: [id number] Report ID: [id number]
[2020-09-17] MEDS: ARFORMOTEROL TARTRATE 15 MCG/2 ML VIAL.NEB NEB SCH (20:00)
[2020-09-17] MEDS: ATORVASTATIN 40 MG TAB PO SCH (20:31)
[2020-09-17] MEDS: carvediloL 25 MG TAB PO SCH (20:31)
--- NOTE | 2020-09-17 22:07 | P.CNS ---
Date of Consult: 09/17/20 Reason for Consult: Volume overload, CKD Requesting Physician: Jaydon Younger Chief Complaint: CHF exacerbation History of Present Illness: 69M w/ PMHx of CKD3, baseline serum creatinine 1.2-1.4 (GFR 50-60) as of August 2020,chronic systolic heart failure, A. fib on rivaroxaban and amiodarone, Htn, CAB s/p CABG, DM2, Htn, HLD, & COPD with chronic serum bicarb elevation, who p/w worsening SOB & PND. He reports having 60 years of cigarette smoking history. In the ER he was noted to be in respi distress & w/ relative hypotension. Upon my evaluation, his jugular vein is somewhat distended. He has 1+ bilateral lower 70 edema. His serum creatinine currently is at 1.56 which is still around his baseline. Transthoracic echocardiogram in January 2018 showed decreased LVEF of 30%. He had a chest CT in August 2020 that showed a dilated main pulmo artery. Prior chest CT also showed the same finding. He is admitted for further evaluation & mngt. Allergies No Known Allergies Allergy (Verified 08/28/20 15:19) Home Medications: Gabapentin [Neurontin*] 3 cap PO TID 12/02/16 Aspirin 81 mg PO DAILY 11/10/17 carvediloL [Coreg*] 25 mg PO BID 11/10/17 glipiZIDE [Glucotrol] 10 mg PO DAILY 11/10/17 Metformin ER [Glucophage ER*] 1,000 mg PO BID 02/17/18 Amiodarone HCl 100 mg PO DAILY 08/28/20 Aripiprazole [Abilify] 30 mg PO DAILY 08/28/20 Atorvastatin Calcium [Lipitor] 40 mg PO BEDTIME 08/28/20 Furosemide [Lasix*] 40 mg PO DAILY 08/28/20 Losartan Potassium [Cozaar] 100 mg PO DAILY 08/28/20 Rivaroxaban [Xarelto*] 20 mg PO DAILY 6PM 08/28/20 Albuterol Neb [Proventil 0.083% Neb Soln] 2.5 mg NEB [id number] PRN #120 amp 08/29/20 Budesonide/Formoterol Fumarate [Symbicort 160-4.5 Mcg Inhaler] 1 puff IH DAILY PRN 09/17/20 - Past Medical/Surgical History Diabetic: Yes -: Hypertension -: Diabetes mellitus type 2 -: Posttraumatic stress disorder -: Anxiety -: Hepatitis-C -: Hyperlipidemia -: CAD, stent placement x2 -: Obstructive sleep apnea -: Obesity -: Diabetic neuropathy -: History pancreatitis -: COPD, tobacco abuse -: 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 - Family History Father Medical History: Other (see notes) Notes: CHF Mother Medical History: Cancer Notes: breast cancer Sister Medical History: Cancer Notes: colon cancer Brother Medical History: Cancer Notes: throat cancer - Social History Smoking Status: Unknown if ever smoked Alcohol use: No CD- Drugs: No Caffeine use: Yes Place of Residence: Home Review of Systems General: Weakness Eyes: Unremarkable ENT: Unremarkable Respiratory: Shortness of Breath, SOB with Excertion Cardiovascular: Paroxysmal Noc. Dyspnea Gastrointestinal: Unremarkable Genitourinary: Unremarkable Musculoskeletal: Pedal edema Integumentary: Unremarkable Neurological: Weakness Lymphatics: Unremarkable Physical Examination Temp Pulse Resp BP Pulse Ox 97.3 F 80 18 188/86 H 92 09/17/20 20:00 09/17/20 20:31 09/17/20 20:00 09/17/20 20:31 09/17/20 20:00 General: Mild distress HEENT: Atraumatic, Normocephalic Neck: Supple Respiratory: Diminished Cardiovascular: No rubs, No murmurs Gastrointestinal: Soft and benign, Non-distended Musculoskeletal: Swelling Integumentary: No rashes Neurological: Normal tone Lymphatics: No axilla or inguinal lymphadenopathy Urinary: Other (no bladder distention) External genitalia: Deferred Rectal: Deferred Laboratory Data (last 24 hrs) 09/17/20 02:10: PT 18.2 H, INR 1.58 09/17/20 02:10: WBC 12.10 H, Hgb 11.6 L, Hct 35.9 L, Plt Count 179 09/17/20 02:10: Sodium 145, Potassium 4.1, BUN 28 H, Creatinine 1.56 H, Glucose 200 H, Magnesium 2.0, Total Bilirubin 0.3, AST 10 L, ALT 20, Alkaline Phosphatase 79 Conclusions/Impression: # CKD3 Baseline serum creatinine 1.2-1.4 (GFR 50-60) as of August 2020 F/u random UPCR Monitor renal panel # Acute respiratory failure 2/2 acute on chronic CHF Continue Lasix 40 mg IV 3 times a day Continue other cardioprudent meds O2 suppl prn He has had multiple episodes/hospitalizations for acute on chronic respiratory failure. TTE in January 2018 showed decreased LVEF 30%. He had a chest CT in August 2020 that showed a dilated main pulmo artery. Prior chest CT in 2017 also showed the same finding. COPD changes on chest CT are mild. He may have underlying sig pulmo Htn that may be more than just from COPD &/or L-sided cardiac issues, & therefore he will need a right heart cath at some point to eval further & determine need of pulmonary vasodilator trial. Recommend to pursue a right heart cath once his volume overload state is much improved. Will need AICD if LVEF remains low Pulmonary service consulted CTPE in August 2020 neg for pulmo embolism of the larger/central pulmonary vasculature F/u NED # Acute on chronic systolic HF, Afib, Htn, HLD, CAD s/p CABG +JVD +1 BLE edema Lasix as above Given possible sig pulmo Htn, will need to maintain some BLE edema to maintain adequate preload Cont rivaroxaban & amiodarone Other cardiac meds per primary team & Cardiology Low Na/heart healthy diet Do NOT restrict fluid intake unless he becomes hyponatremic Weigh accurately daily in standing # COPD Serum bicarb chronically elevated Mngt per other services & Pulmonology # DM2 Mngt per primary team
[2020-09-18 01:14] LABS: Urine Protein/Creatinine Ratio 0.55 ratio (<0.15)
[2020-09-18 06:56] LABS: Absolute Lymphocytes (CBC) 0.8 K/uL (0.7-4.9); Albumin 3.2 g/dL (3.4-5.0); Basophils % 0.3 % (0-1.3); Bilirubin Total 0.6 mg/dL (0.2-1.0); Hematocrit 35.5 % (39.6-49.0); Lymphocytes % 8.9 % (15.3-44.8); MPV 8.9 fL (7.6-11.3); Magnesium 1.9 mg/dL (1.8-2.4); Potassium 3.8 mmol/L (3.5-5.1); Protein, Total 6.8 g/dL (6.4-8.2); RBC Red Blood Cell Count 4.09 M/uL (4.33-5.43)
--- NOTE | 2020-09-18 06:56 | P.PN ---
Subjective Date of Service: 09/18/20 Chief Complaint: CHF exacerbation Subjective: Other (He reports no worsening of his shortness of breath.) Physical Examination - Vital Signs Temperature: 97 F Blood Pressure: 149/69 Pulse: 68 Respirations: 17 Pulse Ox (%): 94 - Physical Exam General: Other (Appears as his stated age) HEENT: Atraumatic, Normocephalic Neck: Supple Respiratory: Clear to auscultation bilaterally Cardiovascular: Normal S1 S2, No rubs, No murmurs Gastrointestinal: Soft and benign Neurological: Normal speech, Normal tone Urinary: Other (No bladder distention) Assessment And Plan - Plan # CKD3 presumed to be 2/2 DM/Htn Baseline serum creatinine 1.2-1.4 (GFR 50-60) as of August 2020 Random UPCR 0.6g Monitor renal panel # Acute respiratory failure 2/2 acute on chronic CHF Decrease Lasix to 40 mg IV BID Continue other cardioprudent meds O2 suppl prn CTPE in August 2020 neg for pulmo embolism of the larger/central pulmonary vasculature F/u NED He has had multiple episodes/hospitalizations for acute on chronic respiratory failure. He goes to the [facility]. TTE in January 2018 showed decreased LVEF 30%. He had a chest CT in August 2020 that showed a dilated main pulmo artery. Prior chest CT in 2017 also showed the same finding. COPD changes on chest CT are mild. He may have underlying sig pulmo Htn that may be more than just from COPD &/or L-sided cardiac issues, & therefore he will need a right heart cath to eval further & determine need of pulmonary vasodilator trial. Discussed with Cardio Dr. Conte. As patient is now close to or at his dry weight, this would be a good time to pursue R heart cath. For TTE tomorrow. Plan to pursue RHC if RVSP high. Would also recommend to pursue RHC if TTE w/ suboptimal windows to assess R-sided cardiac pressures. Will need AICD if LVEF remains low Appreciate pulmo input # Acute on chronic systolic HF, Afib, Htn, HLD, CAD s/p CABG +JVD +1 BLE edema Lasix as above Given possible sig pulmo Htn, will need to maintain some BLE edema to maintain adequate preload Cont rivaroxaban & amiodarone Other cardiac meds per primary team & Cardiology Low Na/heart healthy diet Do NOT restrict fluid intake unless he becomes hyponatremic Weigh accurately daily in standing # COPD Serum bicarb chronically elevated Mngt per other services & Pulmonology # DM2 Mngt per primary team
--- NOTE | 2020-09-18 07:46 | RAD REPORT ---
EXAM DESCRIPTION: RAD - Chest Single View - 09/18/2020 5:43 am CLINICAL HISTORY: CHF COMPARISON: September 17 TECHNIQUE: AP portable chest image was obtained 09/18/2020 5:43 am . FINDINGS: Interstitial pattern is prominent but improved. Cardiac silhouette has decreased slightly in size and vasculature has diminished in prominence. Sternotomy wires are in place. No new mass or consolidation. Trachea is midline. No measurable pleura l effusion and no pneumothorax. No acute bony abnormality seen. No acute aortic findings suspected. IMPRESSION: Complete or near complete clearing of the CHF/volume overload pattern.
[2020-09-18] MEDS: IPRATROPIUM BROM 0.5MG/2.5ML NEB PRN ×2 (08:25→20:50)
[2020-09-18] MEDS: ARFORMOTEROL TARTRATE 15 MCG/2 ML VIAL.NEB NEB SCH ×2 (08:25→20:50)
[2020-09-18] MEDS: ARIPiprazole 5 MG TAB PO SCH (08:45)
[2020-09-18] MEDS: predniSONE 20 MG TAB PO SCH ×2 (08:45→21:14)
[2020-09-18] MEDS: FUROSEMIDE 40 MG/4 ML VIAL IV SCH ×2 (08:46→21:14)
[2020-09-18] MEDS: SPIRONOLACTONE 25 MG TABLET PO SCH (08:46)
[2020-09-18] MEDS: ASPIRIN 81 MG CHEWABLE TABLET PO SCH (08:46)
[2020-09-18] MEDS: LOSARTAN POTASSIUM 50 MG TABLET PO SCH (08:46)
[2020-09-18] MEDS: GABAPENTIN 400 MG CAP PO SCH ×3 (08:46→21:13)
[2020-09-18] MEDS: carvediloL 25 MG TAB PO SCH ×2 (08:47→21:13)
[2020-09-18] MEDS: AMIODARONE HCL 200 MG TAB PO SCH (08:47)
[2020-09-18] MEDS ORDERED: HOME MED 1 EA UNK (Losartan Potassium [Cozaar] 25 MG Tablet) PO SCH (09:00)
[2020-09-18] MEDS ORDERED: ARIPIPRAZOLE 30 MG PO SCH (09:00)
[2020-09-18] MEDS ORDERED: LOSARTAN POTASSIUM 50 MG TABLET PO SCH (09:00)
[2020-09-18] MEDS ORDERED: POTASSIUM CL SA 10 MEQ TAB PO ONE (09:00)
[2020-09-18] MEDS ORDERED: HOME MED 1 EA UNK (Amiodarone Hcl [Amiodarone Hcl] 100 MG Tablet) PO SCH (09:00)
[2020-09-18 10:03] LABS: Blood Morphology Comment NOT SEEN (NOT SEEN); Platelet Estimate ADEQ; White Blood Cell Scan OK (OK)
--- NOTE | 2020-09-18 11:23 | P.PN ---
Subjective Date of Service: 09/18/20 Chief Complaint: CHF exacerbation Subjective: Improving, Doing well Physical Examination - Vital Signs Temperature: 97.9 F Blood Pressure: 178/81 Pulse: 67 Respirations: 18 Pulse Ox (%): 94 Assessment & Plan Discharge Plan: Home Plan to discharge in: 24 Hours Physician Review Additional Text: Physical Exam: GENERAL: Patient doing well. Patient responding well to diuresis. Was on 1 L per nasal cannula this morning. VITAL SIGNS: [Reviewed] HEENT: Head normocephalic and atraumatic. NECK: [Supple. No carotid bruits. No lymphadenopathy or thyromegaly.] LUNGS: Clear breath sounds.. HEART: AFib rate controlled ABDOMEN: [Soft, nontender, and nondistended. Positive bowel sounds. No hepatosplenomegaly was noted.] EXTREMITIES: No significant edema to the lower extremities. NEUROLOGIC: Patient alert, cooperative SKIN: No significant edema to the lower extremities Impression: Acute hypoxic respiratory failure secondary to acute on chronic systolic congestive heart failure with volume overload CAD s/p CABG Atrial fibrillation on chronic anticoagulation therapy Acute on chronic renal disease stage III Diabetes mellitus type 2 with hypoglycemia COPD Hypertension Hyperlipidemia Chronic pain with neuropathy Depression with anxiety Plan Acute hypoxic respiratory failure secondary to acute on chronic systolic co ngestive heart failure with volume overload: Patient responding well to IV diuretic therapy. X-ray shows significant improvement. Will decrease IV Lasix to twice daily. Pulmonology added Aldactone. Nephrology recommends not to restrict fluids at this time. Last echocardiogram shows EF of 30%. This was in 2018. Case discussed with cardiology and nephrology yesterday. Nephrology suspects pulmonary hypertension with CHF. Both recommend diuresis. Patient to have echocardiogram tomorrow. Cardiology wants to evaluate echocardiogram before any consideration of possible inpatient heart catheterization. Cardiology suspects no need for heart catheterization but will wait on echocardiogram. Anticipate continued improvement. Likely discharge home as early as tomorrow if much improved. Patient does not desire any need for home health or therapy at home. I will turn the service over to the hospitalist team tomorrow. I will go plan of care with him. CAD s/p CABG: Continue home medication-aspirin, losartan, Lipitor, and carvedilol. Atrial fibrillation on chronic anticoagulation therapy: AFib rate controlled. Continue with medication. Patient on amiodarone and Xarelto. Acute on chronic renal disease stage III: Likely related to above. Continue to monitor closely. Continue with Nephrology recommendations. Diabetes mellitus type 2 with hypoglycemia: Hemoglobin A1c 6.0. Encourage oral intake. Will monitor for hypoglycemia. Currently metformin and glipizide have been discontinued. This has improved. Will continue Accu-Cheks and sliding scale. Will continue to adjust medication accordingly. Will need to consider discontinuing metformin and glipizide at discharge due to acute on chronic renal failure and hypoglycemia. Other considerations or adjustments in medication will need to be considered at discharge. COPD: Continue with COPD medication. Patient transition to oral prednisone. Will check to see if the patient will require home oxygen at discharge. Await echocardiogram. Case discussed with pulmonology. Hypertension: Continue with medication-losartan and carvedilol. Hyperlipidemia: Stable continue home med-Lipitor. Depression with anxiety: Continue Abilify Chronic pain with neuropathy: Continue gabapentin. Recommend no further use of nonsteroidal anti-inflammatories. Code Status: [Full Code] DVT prophylaxis: Patient on Xarelto for atrial fibrillation Advanced Care Planning-30 minutes: Patient reports no need for home health for physical therapy at discharge. Patient desires to go home at discharge. Time Spent Managing Pts Care (In Minutes): 55
[2020-09-18] MEDS: RIVAROXABAN 10 MG TABLET PO SCH (16:17)
[2020-09-18] MEDS: ATORVASTATIN 40 MG TAB PO SCH (21:13)
[2020-09-19 06:25] LABS: Basophils % 0.4 % (0-1.3); Hematocrit 35.5 % (39.6-49.0); Lymphocytes % 11.9 % (15.3-44.8); MPV 9.5 fL (7.6-11.3); RBC Red Blood Cell Count 4.08 M/uL (4.33-5.43)
[2020-09-19 06:41] LABS: Albumin 3.2 g/dL (3.4-5.0); Bilirubin Total 0.6 mg/dL (0.2-1.0); Potassium 3.8 mmol/L (3.5-5.1); Protein, Total 6.7 g/dL (6.4-8.2)
[2020-09-19] MEDS: FUROSEMIDE 40 MG/4 ML VIAL IV SCH ×2 (08:34→21:02)
[2020-09-19] MEDS: AMIODARONE HCL 200 MG TAB PO SCH (08:34)
[2020-09-19] MEDS: ARIPiprazole 5 MG TAB PO SCH (08:34)
[2020-09-19] MEDS: LOSARTAN POTASSIUM 50 MG TABLET PO SCH (08:35)
[2020-09-19] MEDS: ASPIRIN 81 MG CHEWABLE TABLET PO SCH (08:35)
[2020-09-19] MEDS: carvediloL 25 MG TAB PO SCH ×2 (08:35→22:07)
[2020-09-19] MEDS: predniSONE 20 MG TAB PO SCH ×2 (08:35→21:01)
[2020-09-19] MEDS: SPIRONOLACTONE 25 MG TABLET PO SCH (08:36)
[2020-09-19] MEDS: GABAPENTIN 400 MG CAP PO SCH ×3 (08:36→21:01)
[2020-09-19] MEDS ORDERED: POTASSIUM CL SA 10 MEQ TAB PO ONE (10:05)
[2020-09-19] MEDS: ARFORMOTEROL TARTRATE 15 MCG/2 ML VIAL.NEB NEB SCH ×2 (10:52→20:35)
[2020-09-19] MEDS ORDERED: RIVAROXABAN 20 MG TABLET PO SCH (17:00)
[2020-09-19] MEDS ORDERED: GLUCAGON 1 MG/VIAL IM PRN (18:11)
[2020-09-19] MEDS ORDERED: D50W 25 GM/50 ML VIAL IV PRN (18:29)
[2020-09-19] MEDS ORDERED: INSULIN 70/30 100 UNITS/ML SQ ONE (19:00)
[2020-09-19] MEDS ORDERED: glipiZIDE 5 MG TAB PO ONE (19:00)
[2020-09-19] MEDS: ATORVASTATIN 40 MG TAB PO SCH (21:01)
--- NOTE | 2020-09-20 03:14 | PN ---
Date of Progress Note: 09/19/2020 Chief Complaint: CHF exacerbation. Subjective: Patient has multiple medical problems including history of cardiorenal syndrome, chronic kidney disease stage 3 due to diabetes mellitus and hypertension. Baseline creatinine level 1.2 to 1.4. Patient has history of proteinuria. Patient developed acute respiratory failure secondary to acute and chronic congestive heart failure. Lasix was started and currently Lasix dose was decreased adjusted to 40 mg IV twice a day. Review of Systems: Denies pain, patient is feeling better. Physical Examination: Lungs: Diminished breath sounds at bases. Heart: S1, S2. Abdomen: Soft, benign. Extremities: Slight edema. Impression And Plan: Chronic kidney stage 3 due to diabetes mellitus and hypertension. Avoid nephrotoxic medication. Patient has history of proteinuria. Further workup for proteinuria outpatient. Patient has history of multiple hospitalization for acute on chronic respiratory failure. He has history of decreased left ventricular ejection fraction to 20%. He has workup done which showed possible pulmonary hypertension. Continue diuretics for volume control. Patient had chronic obstructive pulmonary disease and further recommendation from primary team. HILDA/PARTH Voice ID: [id number] Report ID: [id number] MTDD
[2020-09-20 04:25] LABS: Basophils % 0.3 % (0-1.3); Lymphocytes % 10.9 % (15.3-44.8); RBC Red Blood Cell Count 4.31 M/uL (4.33-5.43)
[2020-09-20 04:28] LABS: Albumin 3.4 g/dL (3.4-5.0); Bilirubin Total 0.5 mg/dL (0.2-1.0); Magnesium 2.1 mg/dL (1.8-2.4); Potassium 3.9 mmol/L (3.5-5.1); Protein, Total 7.1 g/dL (6.4-8.2)
[2020-09-20 06:24] VITALS: BMI 34.2
[2020-09-20] MEDS: ARFORMOTEROL TARTRATE 15 MCG/2 ML VIAL.NEB NEB SCH (07:50)
[2020-09-20] MEDS ORDERED: glipiZIDE 5 MG TAB PO SCH (08:00)
--- NOTE | 2020-09-20 08:07 | ECHO ---
HEIGHT: 6 ft 0 in WEIGHT: 252 lb 12.8 oz DATE OF STUDY: 09/19/[address]: Jaydon Younger DO 2-DIMENSIONAL: YES M.MODE: YES DOPPLER: YES COLOR FLOW: YES TDS: PORTABLE: DEFINITY: BUBBLE STUDY: DIAGNOSIS: EVALUATE FOR CONGESTIVE HEART FAILURE AND PULMONARY HYPERTENSION CARDIAC HISTORY: CATHERIZATION: YES SURGERY: YES PROSTHETIC VALVE: NO PACEMAKER: NO MEASUREMENTS (cm) DIASTOLIC (NORMALS) SYSTOLIC (NORMALS) IVSd 1.2 (0.6-1.2) LA Diam (1.9-4.0) LVEF 50-55% LVIDd 4.6 (3.5-5.7) LVIDs 3.3 (2.0-3.5) %FS 29% LVPWd 1.6 (0.6-1.2) Ao Diam (2.0-3.7) 2 DIMENSIONAL ASSESSMENT: RIGHT ATRIUM: NORMAL LEFT ATRIUM: NORMAL RIGHT VENTRICLE: NORMAL LEFT VENTRICLE: NORMAL TRICUSPID VALVE: NORMAL MITRAL VALVE: MITRAL REGURGITATION PULMONIC VALVE: MODERATE PULMONARY INSUFFIECNY AORTIC VALVE: MILD CALCIFICATION. NO AORTIC STENOSIS PERICARDIAL EFFUSION: NONE AORTIC ROOT: NORMAL LEFT VENTRICULAR WALL MOTION: MILD APICAL HYPOKINSIS DOPPLER/COLOR FLOW: SEE BELOW COMMENTS: LOW NORMAL LEFT VENTRICULAR EJECTION FRACTION 50-55% WITH MILD APICAL HYPOKINESIS. MILD TRICUSPID REGURGITATION, MILD MITRAL REGURGITATION. NORMAL RIGHT VENTRICULAR SYSTOLIC PRESSURE. TECHNOLOGIST: RHONDA YOUNG
[2020-09-20] MEDS: LOSARTAN POTASSIUM 50 MG TABLET PO SCH (08:33)
[2020-09-20] MEDS: ARIPiprazole 5 MG TAB PO SCH (08:33)
[2020-09-20] MEDS: ASPIRIN 81 MG CHEWABLE TABLET PO SCH (08:34)
[2020-09-20] MEDS: GABAPENTIN 400 MG CAP PO SCH ×2 (08:34→13:10)
[2020-09-20] MEDS: AMIODARONE HCL 200 MG TAB PO SCH (08:35)
[2020-09-20] MEDS: carvediloL 25 MG TAB PO SCH (08:36)
[2020-09-20] MEDS: predniSONE 20 MG TAB PO SCH (08:36)
[2020-09-20] MEDS: SPIRONOLACTONE 25 MG TABLET PO SCH (08:36)
[2020-09-20] MEDS: FUROSEMIDE 40 MG/4 ML VIAL IV SCH (08:37)
[2020-09-20] MEDS ORDERED: POTASSIUM CL SA 10 MEQ TAB PO ONE (09:00)
[2020-09-20 10:08] VITALS: O2SAT 97
[2020-09-20 13:54] VITALS: BP 135/66; TEMP 98.1
[2020-09-21] MEDS ORDERED: AMLODIPINE 2.5 MG TAB PO SCH (09:00)
--- NOTE | 2020-09-26 03:38 | P.PN ---
Subjective Date of Service: 09/19/20 Patient is doing much better. Patient respiratory status has been improved. Echocardiogram is pending. Possibility of right heart catheterization but this is on hold for now. Review of Systems 10-point ROS is otherwise unremarkable Physical Examination - Vital Signs Temperature: 98.1 F Blood Pressure: 135/66 Pulse: 67 Respirations: 18 Pulse Ox (%): 94 - Physical Exam General: Alert, In no apparent distress, Oriented x3 Respiratory: Diminished, Crackles/rales Cardiovascular: Regular rate/rhythm, Normal S1 S2, No murmurs Gastrointestinal: Normal bowel sounds, Soft and benign, Non-distended, No tenderness Musculoskeletal: No clubbing, No swelling, No tenderness Neurological: Normal speech, Normal tone, Normal affect Lymphatics: No axilla or inguinal lymphadenopathy - Studies Medications List Reviewed: Yes Assessment & Plan - Problems (Diagnosis) (1) Acute on chronic diastolic (congestive) heart failure Onset Date: 05/07/17 Status: Acute (2) Bradycardia Status: Acute (3) Chronic kidney disease, stage 3 Status: Acute (4) COPD (chronic obstructive pulmonary disease) Status: Chronic Qualifiers: COPD type: chronic bronchitis Chronic bronchitis type: unspecified Qualified Code(s): J42 - Unspecified chronic bronchitis (5) Coronary arteriosclerosis Onset Date: 12/03/16 Status: Chronic (6) Diabetes mellitus Onset Date: 12/03/16 Status: Chronic (7) Obstructive sleep apnea Onset Date: 11/11/17 Status: Chronic (8) Tobacco abuse Status: Chronic - Plan 1. Echocardiogram 2. Continue cardiac meds 3. Low-dose beta-mariaa therapy 4. Cardiology consultation appreciated 5. Gentle diuresing 6. Strict I's and O's 7. Repeat CXR 8. Daily weights 9. Education regarding diet and treatment of congestive heart failure Discharge Plan: Home Plan to discharge in: Greater than 2 days - Advance Directives Does patient have a Living Will: No Does patient have a Durable POA for Healthcare: No Critical Care: No Time Spent Managing PTS Care (In Minutes): 35
--- NOTE | 2020-09-26 03:39 | P.DS ---
Discharge Date: 09/20/20 Disposition: AMA-LEFT AGAINST MEDICAL ADVIC Discharge Condition: GOOD Reason for Admission: CHF exacerbation Consultations: Cardiology - Problems (1) Acute on chronic diastolic (congestive) heart failure Onset Date: 05/07/17 Status: Acute (2) Bradycardia Status: Acute (3) Chronic kidney disease, stage 3 Status: Acute (4) COPD (chronic obstructive pulmonary disease) Status: Chronic Qualifiers: COPD type: chronic bronchitis Chronic bronchitis type: unspecified Qualified Code(s): J42 - Unspecified chronic bronchitis (5) Coronary arteriosclerosis Onset Date: 12/03/16 Status: Chronic (6) Diabetes mellitus Onset Date: 12/03/16 Status: Chronic (7) Obstructive sleep apnea Onset Date: 11/11/17 Status: Chronic (8) Tobacco abuse Status: Chronic Brief History of Present Illness: Patient is a 69-year-old gentleman who came to the hospital with shortness of breath. Patient was felt to have congestive heart failure. Patient was admitted for further evaluation. Hospital Course: Patient decided to leave against medical advice Vital Signs/Physical Exam: Temp Pulse Resp BP Pulse Ox 98.1 F 67 18 135/66 94 09/26/20 03:38 09/26/20 03:38 09/26/20 03:38 09/26/20 03:38 09/26/20 03:38 General: Alert, In no apparent distress, Oriented x3 Laboratory Data at Discharge: WBC 9.10 K/uL (4.3-10.9) 09/20/20 03:48 Hgb 12.5 g/dL (13.6-17.9) L 09/20/20 03:48 Hct 37.0 % (39.6-49.0) L 09/20/20 03:48 Plt Count 184 K/uL (152-406) 09/20/20 03:48 PT 18.2 SECONDS (9.5-12.5) H 09/17/20 02:10 INR 1.58 09/17/20 02:10 Sodium 141 mmol/L (136-145) 09/20/20 03:48 Potassium 3.9 mmol/L (3.5-5.1) 09/20/20 03:48 BUN 31 mg/dL (7-18) H 09/20/20 03:48 Creatinine 1.24 mg/dL (0.55-1.3) 09/20/20 03:48 Glucose 93 mg/dL (74-106) 09/20/20 03:48 Magnesium 2.1 mg/dL (1.8-2.4) 09/20/20 03:48 Total Bilirubin 0.5 mg/dL (0.2-1.0) 09/20/20 03:48 AST 8 U/L (15-37) L 09/20/20 03:48 ALT 18 U/L (12-78) 09/20/20 03:48 Alkaline Phosphatase 74 U/L (45-117) 09/20/20 03:48 Troponin I 0.07 ng/mL (0.0-0.045) H 09/17/20 14:47 Triglycerides 92 mg/dL (<150) 09/17/20 07:31 Cholesterol 140 mg/dL (<200) 09/17/20 07:31 HDL Cholesterol 32 mg/dL (40-60) L 09/17/20 07:31 Cholesterol/HDL Ratio 4.38 09/17/20 07:31 Home Medications: Gabapentin [Neurontin*] 3 cap PO TID 12/02/16 Aspirin 81 mg PO DAILY 11/10/17 carvediloL [Coreg*] 25 mg PO BID 11/10/17 glipiZIDE [Glucotrol] 10 mg PO DAILY 11/10/17 Metformin ER [Glucophage ER*] 1,000 mg PO BID 02/17/18 Amiodarone HCl 100 mg PO DAILY 08/28/20 Aripiprazole [Abilify] 30 mg PO DAILY 08/28/20 Atorvastatin Calcium [Lipitor] 40 mg PO BEDTIME 08/28/20 Furosemide [Lasix*] 40 mg PO DAILY 08/28/20 Losartan Potassium [Cozaar] 100 mg PO DAILY 08/28/20 Rivaroxaban [Xarelto*] 20 mg PO DAILY 6PM 08/28/20 Albuterol Neb [Proventil 0.083% Neb Soln] 2.5 mg NEB [id number] PRN #120 amp 08/29/20 Budesonide/Formoterol Fumarate [Symbicort 160-4.5 Mcg Inhaler] 1 puff IH DAILY PRN 09/17/20 Spironolactone [Aldactone] 25 mg PO DAILY #30 tablet 09/23/20 predniSONE [Deltasone] 20 mg PO DAILY #5 tab 09/23/20 New Medications: Spironolactone [Aldactone] 25 mg PO DAILY #30 tablet predniSONE [Deltasone] 20 mg PO DAILY #5 tab Physician Discharge Instructions: Patient left against medical advice Diet: AHA Activity: Fall precautions Followup: NONE,NONE [Primary Care Provider] - Time spent managing pt's care (in minutes): 35
== END 2020-09-20 13:54 | disposition left against medical advice (07) | DRG 291 ==
LOC: ER 02:05 → ERHOLD 04:51 → 2ND 05:09
PROVIDERS: ADMIT Family Medicine; ATTEND Hospitalist
PROC: 5A09457 Assistance with Respiratory Ventilation, 24-96 Consecutive Hours, Continuous Positive Airway Pressure (ICD-10-PCS; principal; 2020-09-17)
DX: I13.0 Hypertensive heart and chronic kidney disease with heart failure and stage 1 through stage 4 chronic kidney disease, or unspecified chronic kidney disease (principal); J96.01 Acute respiratory failure with hypoxia; I50.33 Acute on chronic diastolic (congestive) heart failure; N17.9 Acute kidney failure, unspecified; N18.30 Chronic kidney disease, stage 3 unspecified; G89.29 Other chronic pain; M54.9 Dorsalgia, unspecified; I25.10 Atherosclerotic heart disease of native coronary artery without angina pectoris; E11.22 Type 2 diabetes mellitus with diabetic chronic kidney disease; E11.40 Type 2 diabetes mellitus with diabetic neuropathy, unspecified; E11.649 Type 2 diabetes mellitus with hypoglycemia without coma; F41.8 Other specified anxiety disorders; I27.20 Pulmonary hypertension, unspecified; I48.91 Unspecified atrial fibrillation; G47.33 Obstructive sleep apnea (adult) (pediatric); J42 Unspecified chronic bronchitis; E78.5 Hyperlipidemia, unspecified; R00.1 Bradycardia, unspecified; I25.2 Old myocardial infarction; Z79.82 Long term (current) use of aspirin; Z79.02 Long term (current) use of antithrombotics/antiplatelets; Z79.84 Long term (current) use of oral hypoglycemic drugs; Z79.899 Other long term (current) drug therapy; Z79.01 Long term (current) use of anticoagulants; Z53.29 Procedure and treatment not carried out because of patient's decision for other reasons; Z95.1 Presence of aortocoronary bypass graft; Z79.52 Long term (current) use of systemic steroids; Z87.891 Personal history of nicotine dependence; Z20.822 Contact with and (suspected) exposure to COVID-19
CPT/HCPCS: 36415; 71045; 80048; 80053; 80061; 80076; 81003; 82570; 82947; 83036; 83735; 83880; 84156; 84439; 84443; 84484; 85025; 85610; 86038; 93005; 93306; 94010; 94660; 94760; 96374; 99285; J1815; J1940; J7512; J7605; U0003

== ENCOUNTER 2020-12-29 04:06 | Emergency (ER) | payer OTHER ==
--- OUTSIDE RECORDS SUMMARY | 2020-12-29 04:11 | XMS REPORT | Continuity of Care Document ---
:[address] [facility] t Address [address] Jean Baptiste. [address] [place] [address] Care Team Providers Name Role Phone Gage ESCOTO, K.H. Attending Clinician Eloisa LYMAN Attending Clinician Unavailable [...] Disease Active [facility] hypert[facility]i hypertensi 11-19 Katerine kes - on on 00:00: Medical 00 [place] Acute on Acute on Disease Active [facility] chronic chronic 11-19 [facility] - diastolic diastolic 00:00: Medi oralia (congestiv (congestiv 00 Ce nter e) heart e) heart failure failure Acute Acute Disease Active [facility] St respirator respirator 11-14 Katerine kes - y y 00:00: Medical insufficie insufficie 00 Ce nter ncy ncy Other Other Disease Active [facility] shock shock 11-14 [facility] - 00:[facility]: Medical 00 [place] CAD CAD Disease Active [facility] (coronary (coronary 11-11 [place] s - artery artery 00:00: Medical disease) disease) 00 Center CKD CKD Disease Active Overview: [facility] St (chronic (chronic 05-06 Baseline [facility] - kidney kidney 00:00: Creatinin Medical disease) disease) 00 e ~ 1-1.[address] stage 2, stage 2, GFR 60-89 GFR 60-89 ml/min ml/min Coronary Coronary Disease Active Overview: [facility] artery artery 05-06 PCI [facility] - disease disease 00:00: 2016- on Medica l 00 plavix / Center ACB x 3: IBRAHIM-> LAD, SVG-> OM1, SVG-> OM2 Diabetes Diabetes Disease Active Overview: [facility] mellitus mellitus 05-06 oral meds [facility] es - 00:00: including Medical 00 metformin Center Hypertensi Hypertensi Disease Active [facility] on on 05-06 [facility] - 00:00: Medical 00 [place] NORRIS on NORRIS on Disease Active Overview: [facility] CPAP CPAP claims [facility] e with Center CPAP Current Current Disease Active [facility] smoker smoker [facility] Allergies, Adverse Reactions, Alerts Allergy Allergy Status Severity Reaction(s) Onset Inactive Treating Comm ents Source Name Type Date Date Clinician No Known DA Active [facility] All[facility]ie 08-12 [place] 00:[facility]: [address] Social History Social Habit Start Date Stop Date Quantity Comments Source Sex Assigned At [facility] Cigarettes smoked 2018-01-22 2018-01-22 [facility] - current (pack per 00:00:00 00:00:00 Medical Center day) - Reported Cigarette 2018-01-22 2018-01-[address] [facility] - pack-years 00:00:00 00:00:00 [facility] Tobacco use and 2018-01-22 2018-01-[address] [facility] [address] Katerine kes - exposure 00:00:00 00:00:00 [facility] Alcohol intake 2018-01-22 2018-01-22 Current [facility] St Holly es - 00:00:00 00:00:00 non-drinker of Medical Ce nter alcohol (finding) Smoking Status Start Date Stop Date Source Current every day smoker 2018-01-22 00:00:[address] [facility] Medications Ordered Filled Start Stop [...] tablet 10:15: daily. Medical 53 Center esomeprazol 0 Yes 20mg QD Take [address] e (NEXIUM) 9-20 by mouth [facility] - 20 MG 10:15: daily. Medical capsule 53 Center gabapentin 0 Yes 1200mg [id number] Take 1,[address] (NEURONTIN) 9-20 [id number] mg by L ukes - 600 MG [...] 53 (two) Center tablet times daily. traZODone Yes 100mg Take [address] (DESYREL) [...] Planned Date Details Comments Source Future Scheduled 2021-01-[address] [facility] - Test 00:00:00 (Season Ended) [code = Medic al Center INFLUENZA VACCINE (Season Ended)] Future Scheduled 2020-05-[address] [facility] - Test 00:00:00 (12+) [code = Medical Center DEPRESSION SCREENING (12+)] Future Scheduled 2018-07-[address] Katerine kes - Test 00:00:00 [facility] (procedure) [code = 08523790] Future Scheduled 2014-11-[address] [facility] - Test 00:00:00 WELLNESS (YEAR 2 or Medical Center FIRST YEAR if no IPPE) [code = MEDICARE ANNUAL WELLNESS (YEAR 2 or FIRST YEAR if no IPPE)] Future Scheduled 2013 PNEUMOCOCCAL 65+ YRS [facility] - Test 00:00:00 (1 of 1 - Medical Center [id number] PCV13) [code = PNEUMOCOCCAL 65+ YRS (1 of 1 - [id number] PCV13)] Future Scheduled 1998 SHINGLES VACCINES ([address] [facility] - Test 00:00:00 of 2) [code = SHINGLES Medic al Center VACCINES (1 of 2)] Future Scheduled 1967-11-21 DTAP/TDAP/TD VACCINES [facility] Test 00:00:00 (1 - Tdap) [code = Medical C enter DTAP/TDAP/TD VACCINES (1 - Tdap)] Future Scheduled 1966 HEPATITIS C [facility]CRE[facility]ING [facility] Test 00:00:00 [code = HEPATITIS C Medical Center SCREENING] Future Scheduled 1960 COVID-19 VACCINE (1) [facility] - Test 00:00:00 [code = COVID-[address] VACCINE (1)] Future Scheduled 1958 DIABETIC EYE EXAM [facility] - Test 00:00:00 [code = DIABETIC EYE Medical Center EXAM] Future Scheduled [address] [facility] - Test 00:00:00 examination Medical Center (regime/therapy) [code = 152546374] Future Scheduled 1958 Urine screening for [facility] Test 00:00:00 protein (procedure) Medical Center [code = 261882367] Future Scheduled [address] [facility] - Test 00:00:00 malignant neoplasm of Medica l Center colon (procedure) [code = 235395003] Encounters Start End Encounter Admission Attending Care Care Encounter Source Date/Time Date/Time Type Type Clinicians Facility Department ID 2020-12-15 2020-12-15 Office [facility] [id number] 31 08:50:21 09:50:59 Visit Cailin Rangel [id number] [place] [id number] [place] [id number] nal 059 Building Results Test Description Test Time Test Comments Results Result Comments Source GLUCOSE BEDSIDE TESTING 2020-08-13 12:07:00 Test Item Value Reference Range Interpretation Comme nts GLUCOSE BEDSIDE TESTING (test code = GLUBED) 137 MG/DL 60-99 H GLYCOSYLATED HEMOGLOBIN [id number] 11:19:00 Test Item Value Reference Range Interpretation [...] H (test code = MBG) BASIC METABOLIC [id number] 07:59:00 Test Item Value Reference Range Interpretation [...] VERY HIGH...... ...>/= 190 mg/dL PATIENT REFUSED; NORM Soto (STEPHEN)BASIC METABOLIC [id number] 07:50:00 Test Item Value Reference Range Interpretation [...] 9.8 MG/DL 8.4-10.2 N CA) PATIENT REFUSED; NORM MOORE)LIPID PROFILE (CORONARY RISK)2020-08-13 07:50:00 Test Item [...] MG/DL 0-99 code = LDL) PATIENT REFUSED; NORM MOORE)PROTHROMBIN [id number] 07:46:00 Test Item Value Reference Range Interpretation [...] 3.0 - 4.5 PATIENT REFUSED; PER:ANTONIO MOORE)PTT [id number] 07:46:00 Test Item Value Reference Range Interpretation Comments PTT ACTIVATED (test code = APTT) 39.0 SECONDS 25.1-36.5 H PATIENT REFUSED; PER:ANTONIO MOORE)CBC W/AUTO [id number] 07:35:00 Test Item Value Reference Range Interpretation [...] PATIENT REFUSED; PER ANTONIO Soto (RN)GLUCOSE BEDSIDE [id number] 04:56:00 Test Item Value Reference Range Interpretation Comments GLUCOSE BEDSIDE TESTING (test code 123 MG/DL 60-99 H = GLUBED) GLUCOSE BEDSIDE [id number] 18:50:00 Test Item Value Reference Range Interpretation Comments GLUCOSE BEDSIDE TESTING (test code 221 MG/DL 60-99 H = GLUBED) GLUCOSE BEDSIDE [id number] 15:43:00 Test Item Value Reference Range Interpretation Comments GLUCOSE BEDSIDE TESTING (test code 126 MG/DL 60-99 H = GLUBED) GLUCOSE BEDSIDE [id number] 11:35:00 Test Item Value Reference Range Interpretation Comments GLUCOSE BEDSIDE TESTING (test code 161 MG/DL 60-99 H = GLUBED) GLYCOSYLATED HEMOGLOBIN [id number] 10:30:00 Test Item Value Reference Range Interpretation Comments GLYCOSYLATED 6.0 % 4.8-5.9 H Any condition t hat HEMOGLOBIN (HA1C) shortens e rythocyte (test code = survival or dec reasesmean GLYHGB) erythrocyte age (e.g., recovery from a cute blood loss,hemolytic anemia) will falsely lo wer HGBA1c resultsregardle ss of the method used. H GBA1c results from arjni lipscomb HbSS, HbCC, and HbSc must be interpreted with cautiongiven th e pathological pr ocesses, including anemia,increase d red cell turnover, trans fusion requirements, thatadversely i mpact HGBA1c as a mar ker of long-term glycemiccontrol . Alternative for ms of testing such as fructosaminesho uld be considered for these patients. MEAN BLOOD GLUCOSE 126 MG/DL 70-110 H (test code = MBG) COMPREHENSIVE METABOLIC [id number] 09:27:00 Test Item Value Reference Range Interpretation [...] 38-126 N PHOSPHATASE (test code = ALKP) [id number] 09:27:00 Test Item Value Reference Range Interpretation Comments TROPONIN-I (test code = TROPI) 0.089 NG/ML 0.012-0.033 H T4 [id number] 09:07:00 Test Item Value Reference Range Interpretation Comments T4 FREE (test code = T4F) 1.5 NG/DL 0.78-2.19 N Specimen comments: please run from tsh previously drawnCOMPREHENSIVE METABOLIC [id number] 08:51:00 Test Item Value Reference Range Interpretation [...] 38-126 N PHOSPHATASE (test code = ALKP) [id number] 08:51:00 Test Item Value Reference Range Interpretation Comments TROPONIN-I (test code = TROPI) NG/ML 0.0-0.045 CBC W/AUTO [id number] 08:36:00 Test Item Value Reference Range Interpretation [...] 0.00 K/mm3 0.0-0.1 N NRBC#) GLUCOSE BEDSIDE [id number] 07:36:00 Test Item Value Reference Range Interpretation Comments GLUCOSE BEDSIDE TESTING (test code 178 MG/DL 60-99 H = GLUBED) URINALYSIS [id number] 04:39:00 Test Item Value Reference Range Interpretation [...] UACULT) Criteria SOURCE OF URINE: CLEAN CATCHURINALYSIS [id number] 04:35:00 Test Item Value Reference Range Interpretation [...] SOURCE OF URINE: CLEAN CATCHTSH REFLEX TO [id number] 04:06:00 Test Item Value Reference Range Interpretation Comments TSH REFLEX TO FT4 0.391 MIU/L 0.65-4.68 L Please be aware that (test code = bias results fo r TSH TSHREFLEX) may occur forpa tient who are taking Biotin supplements. [id number] 04:06:00 Test Item Value Reference Range Interpretation Comments MAGNESIUM (test code = MAG) 1.8 MG/DL 1.6-2.3 N LIPOPROTEIN LDL [id number] 04:06:00 Test Item Value Reference Range Interpretation Comments LIPOPROTEIN LDL DIRECT 92 mg/dL 100-129 L ===== (test code = LDLDIR) ======= ==[facility]: mg/dL mmol/L--------- ------ ------ ------ --Optimal <100 <2.6Near/abov e optimal 100-129 2.6-3.3Borderli ne High 130-159 3.4-4.1High 16 0-189 4.1-4.9Ve ry High >=190 >=4.9========= This LDL result is a direct measurement.=== ====== [id number] 04:06:00 Test Item Value Reference Range Interpretation Comments TROPONIN-I (test code = TROPI) 0.075 NG/ML 0.012-0.033 H [id number] 03:48:00 Test Item Value Reference Range Interpretation Comments MAGNESIUM (test code = MAG) 1.8 MG/DL 1.6-2.3 N LIPOPROTEIN LDL [id number] 03:48:00 Test Item Value Reference Range Interpretation Comments LIPOPROTEIN LDL DIRECT (test code = mg/dL 100-129 LDLDIR) [id number] 03:48:00 Test Item Value Reference Range Interpretation Comments TROPONIN-I (test code = TROPI) 0.075 NG/ML 0.012-0.033 H [id number] 03:38:00 Test Item Value Reference Range Interpretation Comments MAGNESIUM (test code = MAG) 1.8 MG/DL 1.6-2.3 N [id number] 03:38:00 Test Item Value Reference Range Interpretation Comments TROPONIN-I (test code = TROPI) NG/ML 0.0-0.045 GLUCOSE BEDSIDE [id number] 23:56:00 Test Item Value Reference Range Interpretation Comments GLUCOSE BEDSIDE TESTING (test code 211 MG/DL 60-99 H = GLUBED) HEMOGLOBIN [id number] 09:40:00 Test Item Value Reference Range Interpretation Comments HEMOGLOBIN A1C (BEAKER) (test code = 6.1 % 4.3-6.1 368) RAD, CHEST, 1 VIEW, NON [id number] 09:36:00Reason for exam:->sobShould this be performed at the bedside?->YesFINAL REPORT Chest one view compared to January 22 Discussion: There is cardiac prominence and interstitial congestion. There is linear opacity in both lower lungs. No effusionor pneumothorax. Signed: Denice Tran Verified Date/Time: 01/23/2018 09:36:57 Reading Location: [facility] Radiology Reading Room POCT-GLUCOSE [id number] 08:04:00 Test Item Value Reference Range Interpretation Comments POC-GLUCOSE METER 176 mg/dL 70-110 H TESTED AT [facility] (test code = [place] 15[address]) [address] [id number] 06:49:00 Test Item Value Reference Range Interpretation Comments MAGNESIUM (BEAKER) 2.1 mg/dL 1.6-2.6 Specimen slightly (test code = 627) hemolyzed BASIC METABOLIC [id number] 06:49:00 Test Item Value Reference Range Interpretation [...] PATIEN TS. CBC W/PLT COUNT & AUTO [id number] 06:30:00 Test Item Value Reference Range Interpretation [...] PERCENT (BEAKER) (test code = 2801) POCT-GLUCOSE [id number] 22:19:00 Test Item Value Reference Range Interpretation Comments POC-GLUCOSE METER 235 mg/dL 70-110 H TESTED AT [facility] 67[address] (BEAKER) (test code = [place] 1538) [address] TROPONIN [id number] 17:45:00 Test Item Value Reference Range Interpretation Comments TROPONIN I (BEAKER) (test code = 0.53 ng/mL 0.00-0.03 HH 397) Troponin I (TnI) [...] 0-100 H (BEAKER) (test code = 700) [id number] 17:35:00 Test Item Value Reference Range Interpretation Comments MAGNESIUM (BEAKER) (test code = 1.9 mg/dL 1.6-2.6 627) COMPREHENSIVE METABOLIC [id number] 17:35:00 Test Item Value Reference Range Interpretation [...] NOT APPLICABLE FOR DIALYSIS PATIEN TS. LIPID [id number] 17:35:00 Test Item Value Reference Range Interpretation [...] 160-189 Very High >=190LACTIC ACID, VENOUS, WHOLE [id number] 17:29:00 Test Item Value Reference Range Interpretation Comments LACTATE BLOOD VENOUS 1.0 mmol/L 0.5-2.2 Specime n slightly (2) (BEAKER) (test hemolyzed code = 2872) Effective 09/07/2015: Units/Reference Range ChangeNew: 0.5-2.2 mmol/L Previous: 5-20 mg/[id number] 17:29:00 Test Item Value Reference Range Interpretation Comments PARTIAL THROMBOPLASTIN TIME 46.7 seconds 22.5-36.0 H (BEAKER) (test code = 760) PROTHROMBIN [id number] 17:28:00 Test Item Value Reference Range Interpretation [...] = 2801) RAD, CHEST, 1 VIEW, NON [id number] 17:16:00Reason for exam:->sp acute respiratory failure/bronchospasmShould this [...] Banegas Verified Date/Time: 01/22/2018 17:16:12 [facility] PO[facility]-GLU[facility]SE [id number] 17:12:00 Test Item Value Reference Range Interpretation Comments POC-GLUCOSE METER 118 mg/dL 70-110 H TESTED AT [facility] 6720 (BEAKER) (test code = [place] [facility] 1538) [address] BLOOD GAS, [id number] 16:35:00 Test Item Value Reference Range Interpretation [...] (test code = 1819) 32.0 % POCT-GLUCOSE [id number] 14:15:00 Test Item Value Reference Range Interpretation Comments POC-GLUCOSE METER 69 mg/dL 70-110 L Will Repea t Test/TESTED (BEAKER) (test code = AT [place] [address]698) [facility] 7703 0 POCT-GLUCOSE [id number] 08:43:00 Test Item Value Reference Range Interpretation Comments POC-GLUCOSE METER 277 mg/dL 70-110 H TESTED AT [place] [address] (BEAKER) (test code = [place] [address]1608) [address] [id number] 06:20:00 Test Item Value Reference Range Interpretation Comments PHOSPHORUS (BEAKER) (test code = 3.3 mg/dL 2.3-4.7 604) [id number] 06:20:00 Test Item Value Reference Range Interpretation Comments MAGNESIUM (BEAKER) (test code = 1.8 mg/dL 1.6-2.6 627) BASIC METABOLIC [id number] 06:20:00 Test Item Value Reference Range Interpretation [...] PATIEN TS. CBC W/PLT COUNT & AUTO [id number] 06:09:00 Test Item Value Reference Range Interpretation [...] PERCENT (BEAKER) (test code = 2801) POCT-GLUCOSE [id number] 22:48:00 Test Item Value Reference Range Interpretation Comments POC-GLUCOSE METER 196 mg/dL 70-110 H TESTED AT [place] [address] ([facility] (test code = [facility] 1538) [address] POCT-GLUCOSE [id number] 17:21:00 Test Item Value Reference Range Interpretation Comments POC-GLUCOSE METER 122 mg/dL 70-110 H TESTED AT [place] [address] ([facility]) (test code = [facility] 1538) [address] [id number] 13:13:00 Test Item Value Reference Range Interpretation Comments PHOSPHORUS (BEAKER) (test code = 2.4 mg/dL 2.3-4.7 604) BASIC METABOLIC [id number] 13:13:00 Test Item Value Reference Range Interpretation [...] S NOT APPLICABLE FOR DIALYSIS PATIEN TS. [id number] 13:08:00 Test Item Value Reference Range Interpretation Comments MAGNESIUM (BEAKER) (test code = 1.7 mg/dL 1.6-2.6 627) CBC W/PLT COUNT & AUTO [id number] 12:50:00 Test Item Value Reference Range Interpretation [...] PERCENT (BEAKER) (test code = 2801) POCT-GLUCOSE [id number] 12:42:00 Test Item Value Reference Range Interpretation Comments POC-GLUCOSE METER 174 mg/dL 70-110 H TESTED AT [place] [address] (BANNER) (test code = [facility] Isa [facility] 1538) [address] POCT-GLUCOSE [id number] 08:01:00 Test Item Value Reference Range Interpretation Comments POC-GLUCOSE METER 175 mg/dL 70-110 H TESTED AT [place] [address] ([facility]NER) (test code = [facility] 1538) [address] RAD, CHEST, 1 VIEW, NON [id number] 03:44:00Reason for exam:->ptxShould this be performed at [...] MDReport Verified Date/Time: 11/18/2017 03:44:04 Reading Location: [address] Reading Room POCT- GLUCOSE [id number] 21:05:00 Test Item Value Reference Range Interpretation Comments POC-GLUCOSE METER 145 mg/dL 70-110 H TESTED AT [place] [address] ([facility]) (test code = [place] [facility] 1538) [address] POCT-GLUCOSE [id number] 17:19:00 Test Item Value Reference Range Interpretation Comments POC-GLUCOSE METER 129 mg/dL 70-110 H TESTED AT [place] [address] ([facility]NER) (test code = [place] [facility] 1538) [address] POCT-GLUCOSE [id number] 12:12:00 Test Item Value Reference Range Interpretation Comments POC-GLUCOSE METER 194 mg/dL 70-110 H TESTED AT [place] [address] ([facility]NER) (test code = [place] [facility] 1538) [address] POCT-GLUCOSE [id number] 07:30:00 Test Item Value Reference Range Interpretation Comments POC-GLUCOSE METER 171 mg/dL 70-110 H TESTED AT [place] [address] ([facility]) (test code = [place] [facility] 1538) [address] RAD, CHEST, 1 VIEW, NON [id number] 07:27:00Reason for exam:->ptxShould this be performed at [...] MDReport Verified Date/Time: 11/17/2017 07:27:16 Reading Location: [facility] C013W Consult Reading Room [id number] 07:19:00 Test Item Value Reference Range Interpretation Comments MAGNESIUM (BEAKER) (test code = 1.9 mg/dL 1.6-2.6 627) BASIC METABOLIC [id number] 07:19:00 Test Item Value Reference Range Interpretation [...] NOT APPLICABLE FOR DIALYSIS PATIEN TS. POCT-GLUCOSE [id number] 21:30:00 Test Item Value Reference Range Interpretation Comments POC-GLUCOSE METER 214 mg/dL 70-110 H TESTED AT [facility] 6720 (BEAKER) (test code = [place] 15[address]) [address] URINALYSIS W/ REFLEX URINE [id number] 16:32:00 Test Item Value Reference Range Interpretation [...] = 2795) RAD, CHEST, 1 VIEW, NON [id number] 15:34:00Reason for exam:->ptxShould this be performed at [...] MDReport Verified Date/Time: 11/16/2017 15:34:49 Reading Location: [address] Consult Reading Room POCT-GLUCOSE [id number] 12:10:00 Test Item Value Reference Range Interpretation Comments POC-GLUCOSE METER 203 mg/dL 70-110 H TESTED AT [facility] 67 ([place]) (test code = [place] [facility] 1538) [address] POCT-GLUCOSE [id number] 08:21:00 Test Item Value Reference Range Interpretation Comments POC-GLUCOSE METER 181 mg/dL 70-110 H TESTED AT [facility] 6720 ([place]) (test code = [place] [facility] 1538) [address] RAD, CHEST, 1 VIEW, NON [id number] 08:03:00while patient is intubated or has chest tubes.Reason for exam:->PostopShould this be performed atthe bedside?->YesFINAL REPORT Chest one view compared to November 15 Discussion: Left chest tube is again noted. A left apical pneumothorax appears minimally larger now with pleural separation 1.8 cm. Patchy airspace opacities left mid lung overall similar. No effusion. IMPRESSIONS: A left-sided pneumothorax appears minimally larger. Signed: Deince Tran Verified Date/Time: 11/16/2017 08:03:32 Reading Location: [address] Reading Room POCT-GLUCOSE [id number] 00:11:00 Test Item Value Reference Range Interpretation Comments POC-GLUCOSE METER 159 mg/dL 70-110 H TESTED AT [place] [address] ([facility]) (test code = [facility] 1538) [address] POCT-GLUCOSE [id number] 20:33:00 Test Item Value Reference Range Interpretation Comments POC-GLUCOSE METER 163 mg/dL 70-110 H TESTED AT [place] [address] ([facility]) (test code = [facility] 1538) [address] POCT-GLUCOSE [id number] 17:33:00 Test Item Value Reference Range Interpretation Comments POC-GLUCOSE METER 183 mg/dL 70-110 H TESTED AT [place] [address] ([facility]) (test code = [facility] 1538) [address] URINE IMMUNOFIXATION, [id number] 17:17:00 Test Item Value Reference Range Interpretation Comments PROTEIN, URINE 30 mg/dL 0-14 H (BANNER) (test code = 1569) ALBUMIN URINE ELP 61.4 % (BANNER) (test code = 1018) GAMMA GLOBULIN URINE 38.6 % (BANNER) (test code = 1015) URINE GERARD ID-[id number] No monoclonal proteins ([facility]ANNER) (test code = or monoclonal free 2602) light chains detected. [id number] Raine Martin MD ([facility]) (test code = (electronic signature) 2603) RAD, CHEST, 1 VIEW, NON [id number] 13:19:00while patient is intubated or has chest tubes.Reason for exam:->PostopShould this be performed atthe bedside?->YesFINAL REPORT Chest one view compared to November 14 Discussion: Left chest tube, right IJ pulmonary catheter are noted. There is pulmonary congestion and right midlung linear atelectasis grossly similar. No gross effusion. Tiny left apical pneumothorax unchanged. Signed: Denice Tranort Verified Date/Time: 11/15/2017 13:19:28 Reading Location: [facility] Radiology ReadingRoom URINE PROTEIN ELECTROPHORESIS, RANDOM 2017-11-15 12:47:00 Test Item Value Reference Range Interpretation Comments PROTEIN, URINE 12 mg/dL 0-14 (BEAKER) (test code = 1569) ALBUMIN URINE ELP 61.4 % (BEAKER) (test code = 1018) GAMMA GLOBULIN URINE 38.6 % (BEAKER) (test code = 1015) UPEP, ID-[id number] (BEAKER) No monoclonal bands (test code = 2604) detected. [id number] Raine Martin MD ([facility]) (test code = (electronic signature) 0771) PROTEIN ELECTROPHORESIS, [id number] 12:29:00 Test Item Value Reference Range Interpretation [...] a hemolyzed sample. No monoclonal bands detected. [id number] Raine Martin MD ([facility] (test code = (electronic signature) 5812) PROTEIN TOTAL SERUM, 7.0 gm/dL 6.0-8.3 SPEP (BEAKER) (test code = 2440) BLOOD GAS, [id number] 08:21:00 Test Item Value Reference Range Interpretation [...] code = 1819) 20.0 % BASIC METABOLIC [id number] 08:03:00 Test Item Value Reference Range Interpretation [...] DIALYSIS PATIEN TS. LACTIC ACID, ARTERIAL, WHOLE [id number] 07:57:00 Test Item Value Reference Range Interpretation Comments LACTATE BLOOD ARTERIAL (2) 0.8 mmol/L 0.5-2.2 (BEAKER) (test code = 2874) Effective 09/07/2015: Units/Reference Range ChangeNew: 0.5-2.2 mmol/L Previous: 5-20 mg/[id number] 02:55:00 Test Item Value Reference Range Interpretation Comments PHOSPHORUS (BEAKER) (test code = 2.8 mg/dL 2.3-4.7 604) [id number] 02:55:00 Test Item Value Reference Range Interpretation Comments MAGNESIUM (BEAKER) (test code = 2.1 mg/dL 1.6-2.6 627) BASIC METABOLIC [id number] 02:55:00 Test Item Value Reference Range Interpretation [...] NOT APPLICABLE FOR DIALYSIS PATIEN TS. PROTHROMBIN [id number] 02:53:00 Test Item Value Reference Range Interpretation Comments PROTIME (BEAKER) (test code = 14.9 seconds 11.7-14.7 H 759) INR (BEAKER) (test code = 370) 1.2 <=5.9 RECOMMENDED COUMADIN/WARFARIN INR THERAPY RANGESSTANDARD DOSE: 2.0 - 3.0 Includes: PROPHYLAXIS forvenous thrombosis, systemic embolization; TREATMENT for venous thrombosis and/or pulmonary embolus.HIGH RISK: Target INR is 2.5-3.5 for patients with mechanical heart valves.[id number] 02:53:00 Test Item Value Reference Range Interpretation Comments PARTIAL THROMBOPLASTIN TIME 34.0 seconds 22.5-36.0 (BEAKER) (test code = 760) CBC W/PLT COUNT & AUTO [id number] 02:43:00 Test Item Value Reference Range Interpretation [...] PERCENT (BEAKER) (test code = 2801) PLATELET [id number] 02:35:00 Test Item Value Reference Range Interpretation Comments PLATELET COUNT (BEAKER) (test 167 K/CU MM 150-450 code = 756) GLUCOSE-STAT [id number] 02:32:00 Test Item Value Reference Range Interpretation Comments GLUCOSE RANDOM (BEAKER) (test code 112 mg/dL 70-110 H = 652) HGB/HCT (H&H) - STAT [id number] 02:32:00 Test Item Value Reference Range Interpretation Comments HEMOGLOBIN (BEAKER) (test code = 10.5 g/dL 13.0-16.8 L 410) HEMATOCRIT (BEAKER) (test code = 31.0 % 40.0-50.0 L 411) CALCIUM, [id number] 02:31:00 Test Item Value Reference Range Interpretation Comments CALCIUM IONIZED (BEAKER) (test 1.18 mmol/L 1.12-1.27 code = 698) PH, BLOOD (BEAKER) (test code = 7.38 1810) SODIUM NA-STAT [id number] 02:31:00 Test Item Value Reference Range Interpretation Comments SODIUM (BEAKER) (test code = 381) 137 meq/L 135-148 POTASSIUM-STAT [id number] 02:31:00 Test Item Value Reference Range Interpretation Comments POTASSIUM (BEAKER) (test code = 3.7 meq/L 3.6-5.5 379) POCT-GLUCOSE [id number] 00:40:00 Test Item Value Reference Range Interpretation Comments POC-GLUCOSE METER 129 mg/dL 70-110 H TESTED AT [facility] 6720 (BEAKER) (test code = [place] 1538) [address] POCT-GLUCOSE [id number] 00:40:00 Test Item Value Reference Range Interpretation Comments POC-GLUCOSE METER 143 mg/dL 70-110 H TESTED AT [facility] 6720 (BEAKER) (test code = [place] [facility] 1538) [address] POCT-GLUCOSE [id number] 21:41:00 Test Item Value Reference Range Interpretation Comments POC-GLUCOSE METER 179 mg/dL 70-110 H TESTED AT [facility] 6720 (BEAKER) (test code = [place] 1538) [address] BLOOD GAS, [id number] 19:39:00 Test Item Value Reference Range Interpretation [...] (test code = 1819) 40.0 % GLUCOSE-STAT [id number] 19:39:00 Test Item Value Reference Range Interpretation Comments GLUCOSE RANDOM (BEAKER) (test code 160 mg/dL 70-110 H = 652) HGB/HCT (H&H) - STAT [id number] 19:39:00 Test Item Value Reference Range Interpretation Comments HEMOGLOBIN (BEAKER) (test code = 11.0 g/dL 13.0-16.8 L 410) HEMATOCRIT (BEAKER) (test code = 32.0 % 40.0-50.0 L 411) SODIUM NA-STAT [id number] 19:37:00 Test Item Value Reference Range Interpretation Comments SODIUM (BEAKER) (test code = 381) 137 meq/L 135-148 POTASSIUM-STAT [id number] 19:37:00 Test Item Value Reference Range Interpretation Comments POTASSIUM (BEAKER) (test code = 4.0 meq/L 3.6-5.5 379) BLOOD GAS, [id number] 18:02:00 Test Item Value Reference Range Interpretation [...] arterial line present.RAD, CHEST, 1 VIEW, NON [id number] 17:20:00 Reason for exam:->PostopShould this be performed at the bedside?->YesFINAL REPORT EXAM: Frontal chest radiograph HISTORY PROVIDED: Postop COMPARISON: 11/13/2017 IMPRESSION:The tip of an endotracheal tube terminates 3.8 cm above the alexia. A right IJ approach David-Jun catheter has been placed with its tip [...] No acute osseous abnormality. Signed: Clayton Banegas [facility] Verified Date/Time: 11/14/2017 17:20:20 Reading Location: [facility] Reading Room C METABOLIC [id number] 16:02:00 Test Item Value Reference Range Interpretation [...] S NOT APPLICABLE FOR DIALYSIS PATIEN TS. [id number] 16:02:00 Test Item Value Reference Range Interpretation Comments PHOSPHORUS (BEAKER) (test code = 2.3 mg/dL 2.3-4.7 604) [id number] 16:02:00 Test Item Value Reference Range Interpretation Comments MAGNESIUM (BEAKER) (test code = 2.6 mg/dL 1.6-2.6 627) LACTIC ACID, ARTERIAL, WHOLE [id number] 15:58:00 Test Item Value Reference Range Interpretation Comments LACTATE BLOOD 0.9 mmol/L 0.5-2.2 Specimen sligh tly ARTERIAL (2) (BEAKER) hemoly zed (test code = 2874) Effective 09/07/2015: Units/Reference Range ChangeNew: 0.5-2.2 mmol/L Previous: 5-20 mg/dLCBC W/PLT COUNT & AUTO [id number] 15:47:00 Test Item Value Reference Range Interpretation [...] % 0-1 PERCENT (BEAKER) (test code = 2805) OXYGEN SATURATION, [id number] 15:37:00 Test Item Value Reference Range Interpretation Comments O2 SATURATION (MEASURED) (BEAKER) 55.5 % (test code = 1455) CALCIUM, [id number] 15:37:00 Test Item Value Reference Range Interpretation Comments CALCIUM IONIZED (BEAKER) (test 1.12 mmol/L 1.12-1.27 code = 698) PH, BLOOD (BEAKER) (test code = 7.41 1810) SODIUM NA-STAT [id number] 15:37:00 Test Item Value Reference Range Interpretation Comments SODIUM (BEAKER) (test code = 381) 138 meq/L 135-148 POTASSIUM-STAT [id number] 15:37:00 Test Item Value Reference Range Interpretation Comments POTASSIUM (BEAKER) (test code = 3.6 meq/L 3.6-5.5 379) BLOOD GAS, [id number] 15:37:00 Test Item Value Reference Range Interpretation [...] (test code = 1819) 60.0 % GLUCOSE-STAT [id number] 15:37:00 Test Item Value Reference Range Interpretation Comments GLUCOSE RANDOM (BEAKER) (test code 162 mg/dL 70-110 H = 652) HEMOGLOBIN-STAT [id number] 15:37:00 Test Item Value Reference Range Interpretation Comments HEMOGLOBIN (BEAKER) (test code = 11.2 g/dL 13.0-16.8 L 410) HGB/HCT (H&H) - STAT [id number] 15:37:00 Test Item Value Reference Range Interpretation Comments HEMOGLOBIN (BEAKER) (test code = 11.2 GM/DL 13.0-16.8 L 410) HEMATOCRIT (BEAKER) (test code = 33.0 % 40.0-50.0 L 411) [id number] 14:04:00 Test Item Value Reference Range Interpretation Comments ACTIVATED CLOTTING TIME 114 sec TEST ED AT [place] [address] (BANNER) (test code = [place] [address]) [address] [id number] 14:04:00 Test Item Value Reference Range Interpretation Comments ACTIVATED CLOTTING TIME 472 sec TEST ED AT [place] [address] (BANNER) (test code = [place] [address]) [address] [id number] 14:04:00 Test Item Value Reference Range Interpretation Comments ACTIVATED CLOTTING TIME 505 sec TEST ED AT [place] [address] (BEAKER) (test code = [place] [address]) [address] [id number] 14:04:00 Test Item Value Reference Range Interpretation Comments ACTIVATED CLOTTING TIME 543 sec TEST ED AT [place] [address] (BEAKER) (test code = [place] [address]) [address] CALCIUM, [id number] 13:58:00 Test Item Value Reference Range Interpretation Comments CALCIUM IONIZED (BEAKER) (test 1.11 mmol/L 1.12-1.27 L code = 698) PH, BLOOD (BEAKER) (test code = 7.36 1810) BLOOD GAS, [id number] 13:56:00 Test Item Value Reference Range Interpretation [...] (test code = 1819) 100.0 % GLUCOSE-STAT [id number] 13:56:00 Test Item Value Reference Range Interpretation Comments GLUCOSE RANDOM (BEAKER) (test code 167 mg/dL 70-110 H = 652) HGB/HCT (H&H) - STAT [id number] 13:56:00 Test Item Value Reference Range Interpretation Comments HEMOGLOBIN (BEAKER) (test code = 10.8 g/dL 13.0-16.8 L 410) HEMATOCRIT (BEAKER) (test code = 32.0 % 40.0-50.0 L 411) SODIUM NA-STAT [id number] 13:55:00 Test Item Value Reference Range Interpretation Comments SODIUM (BEAKER) (test code = 381) 136 meq/L 135-148 POTASSIUM-STAT [id number] 13:55:00 Test Item Value Reference Range Interpretation Comments POTASSIUM (BEAKER) (test code = 3.8 meq/L 3.6-5.5 379) BLOOD GAS, [id number] 12:54:00 Test Item Value Reference Range Interpretation [...] code = 1819) 65.0 % SODIUM NA-STAT [id number] 12:54:00 Test Item Value Reference Range Interpretation Comments SODIUM (BEAKER) (test code = 381) 134 meq/L 135-148 L GLUCOSE-STAT [id number] 12:54:00 Test Item Value Reference Range Interpretation Comments GLUCOSE RANDOM (BEAKER) (test code 158 mg/dL 70-110 H = 652) HGB/HCT (H&H) - STAT [id number] 12:54:00 Test Item Value Reference Range Interpretation Comments HEMOGLOBIN (BEAKER) (test code = 8.8 g/dL 13.0-16.8 L 410) HEMATOCRIT (BEAKER) (test code = 26.0 % 40.0-50.0 L 411) POTASSIUM-STAT [id number] 12:53:00 Test Item Value Reference Range Interpretation Comments POTASSIUM (BEAKER) (test code = 4.1 meq/L 3.6-5.5 379) BLOOD GAS, [id number] 12:20:00 Test Item Value Reference Range Interpretation [...] code = 1819) 60.0 % SODIUM NA-STAT [id number] 12:20:00 Test Item Value Reference Range Interpretation Comments SODIUM (BEAKER) (test code = 381) 134 meq/L 135-148 L GLUCOSE-STAT [id number] 12:20:00 Test Item Value Reference Range Interpretation Comments GLUCOSE RANDOM (BEAKER) (test code 187 mg/dL 70-110 H = 652) HGB/HCT (H&H) - STAT [id number] 12:20:00 Test Item Value Reference Range Interpretation Comments HEMOGLOBIN (BEAKER) (test code = 10.0 g/dL 13.0-16.8 L 410) HEMATOCRIT (BEAKER) (test code = 29.0 % 40.0-50.0 L 411) BLOOD GAS, [id number] 12:20:00 Test Item Value Reference Range Interpretation [...] (test code = 1819) 60.0 % POTASSIUM-STAT [id number] 12:18:00 Test Item Value Reference Range Interpretation Comments POTASSIUM (GALE) (test code = 3.5 meq/L 3.6-5.5 L 379) U/S, RENAL WITH [id number] 08:35:00Reason for exam:->INCLUDE DOPPLERS AND PVR- for [...] MDReport Verified Date/Time: 11/14/2017 08:35:40 Reading Location: [address] Ultrasound Reading Room POCT-GLUCOSE [id number] 07:34:00 Test Item Value Reference Range Interpretation Comments POC-GLUCOSE METER 190 mg/dL 70-110 H TESTED AT [facility] 6720 (GALE) (test code = [place] 1538) [address] [id number] 05:19:00 Test Item Value Reference Range Interpretation Comments MAGNESIUM (BEAKER) (test code = 2.0 mg/dL 1.6-2.6 627) BASIC METABOLIC [id number] 05:19:00 Test Item Value Reference Range Interpretation [...] PATIEN TS. CBC W/PLT COUNT & AUTO [id number] 05:00:00 Test Item Value Reference Range Interpretation [...] % 0-1 PERCENT (BEAKER) (test code = 2806) [id number] 01:56:00 Test Item Value Reference Range Interpretation Comments PARTIAL THROMBOPLASTIN TIME 69.0 seconds 22.5-36.0 H (BEAKER) (test code = 760) POCT-GLUCOSE [id number] 22:07:00 Test Item Value Reference Range Interpretation Comments POC-GLUCOSE METER 185 mg/dL 70-110 H TESTED AT [facility] 6720 (BEAKER) (test code = [place] 1538) [address] [id number] 18:43:00 Test Item Value Reference Range Interpretation Comments PARTIAL THROMBOPLASTIN TIME 45.2 seconds 22.5-36.0 H (BEAKER) (test code = 313) [id number] 16:12:00 Test Item Value Reference Range Interpretation Comments THYROID STIMULATING HORMONE 0.53 uIU/mL 0.35-4.94 (BEAKER) (test code = 772) RAD, CHEST, 1 VIEW, NON [id number] 15:33:00Reason for exam:->preopShould this be performed at the bedside?->YesFINAL REPORT EXAM: Frontal chest radiograph HISTORY PROVIDED: Preop COMPARISON: 11/12/2017 IMPRESSION:No focal consolidation, pneumothorax, or significant pleural fluid. The cardiomediastinal silhouette is within normal limits. No acute osseous abnormality. Degenerative changes of the spine are present. Signed: Clayton Banegas Verified Date/Time: 11/13/2017 15:33:28Reading Location: [facility] Mammo Reading Room Electronically signed by: CLAYTON BANEGAS on 11/03 03:33 [id number] 15:06:00 Test Item Value Reference Range Interpretation Comments PARTIAL THROMBOPLASTIN TIME 51.6 seconds 22.5-36.0 H (BEAKER) (test code = 760) PROTHROMBIN [id number] 15:05:00 Test Item Value Reference Range Interpretation [...] INTERPRETATION (BEAKER) arachidonic acid (test code = 183274) suggests aspirin-like effect. [id number] Deven Mei MD (BEAKER) (test code = (electronic 2621) signature) PLATELET COUNT AGG 243 K/CU MM 150-450 (BEAKER) (test code = 5826) Platelet aggregation results may be falsely low with platelet counts<100,000/CU MM.CREATININE, RANDOM [id number] 06:28:00 Test Item Value Reference Range Interpretation Comments CREATININE URINE (BEAKER) (test 114.6 mg/dL code = 375) Reference Range: No NormalsPROTEIN, RANDOM [id number] 06:28:00 Test Item Value Reference Range Interpretation Comments PROTEIN, URINE (BEAKER) (test code = 30 mg/dL 0-14 H 1569) PH, [id number] 05:47:00 Test Item Value Reference Range Interpretation Comments PH VENOUS (BEAKER) (test code = 701) 7.40 7.32-7.42 VITAMIN D, 46-[id number] 04:52:00 Test Item Value Reference Range Interpretation Comments VITAMIN D 25-OH (BEAKER) (test 36.5 ng/mL 6.6-49.9 code = 2764) Effective 02/13/2017: Reference Range ChangeNew: 6.6-49.9 ng/mL Previous: 13.0-47.8 ng/mLRecommended Vitamin D Target Range: 30.0-40.0 ng/mLPTH, INTACT 2017-11-13 04:25:00 Test Item Value Reference Range Interpretation Comments PARATHYROID HORMONE INTACT 91.7 pg/mL 8.5-72.5 H (BEAKER) (test code = 577) [id number] 04:21:00 Test Item Value Reference Range Interpretation Comments PARTIAL THROMBOPLASTIN TIME 53.6 seconds 22.5-36.0 H (BEAKER) (test code = 760) URIC [id number] 04:20:00 Test Item Value Reference Range Interpretation Comments URIC ACID (BEAKER) (test code = 9.0 mg/dL 2.6-7.2 H 773) [id number] 04:20:00 Test Item Value Reference Range Interpretation Comments MAGNESIUM (BEAKER) (test code = 2.0 mg/dL 1.6-2.6 627) [id number] 04:20:00 Test Item Value Reference Range Interpretation Comments PHOSPHORUS (BEAKER) (test code = 3.1 mg/dL 2.3-4.7 604) BASIC METABOLIC [id number] 04:20:00 Test Item Value Reference Range Interpretation [...] PATIEN TS. CBC W/PLT COUNT & AUTO [id number] 04:06:00 Test Item Value Reference Range Interpretation [...] 0-1 PERCENT (BEAKER) (test code = 2801) [id number] 22:34:00 Test Item Value Reference Range Interpretation Comments PARTIAL THROMBOPLASTIN TIME 49.5 seconds 22.5-36.0 H (BEAKER) (test code = 760) POCT-GLUCOSE [id number] 21:55:00 Test Item Value Reference Range Interpretation Comments POC-GLUCOSE METER 179 mg/dL 70-110 H TESTED AT [facility] 6720 (BEAKER) (test code = [place] 1538) [address] RAD, CHEST, 1 VIEW, NON [id number] 17:03:00Reason for exam:->sobShould this be performed at the bedside?->YesFINAL REPORT CHEST AP PORTABLE History provided: Shortness of breath Comparison studies: None Heart size normal. Lungs grossly clear and vascularity normal. IMPRESSION: Grossly clear chest. Signed: Eboni Johnson MDReport Verified Date/Time: 11/12/2017 17:03:31 Reading Location: [address] Radiology Reading Room [id number] 15:41:00 Test Item Value Reference Range Interpretation Comments PARTIAL THROMBOPLASTIN TIME 41.3 seconds 22.5-36.0 H (BEAKER) (test code = 760) POCT-GLUCOSE [id number] 11:50:00 Test Item Value Reference Range Interpretation Comments POC-GLUCOSE METER 218 mg/dL 70-110 H TESTED AT [facility] 6720 (BANNER) (test code = [place] 15[address]) [address] PLATELET AGGREGATION: FUNCTION [id number] 10:14:00 Test Item Value Reference Range Interpretation Comments WEAK ADP 82 % 60-91 RESULT(BANNER) (test code = 2135) PLATELET FUNCTION 60-100% indicates This is a corrected SCREEN INTERP normal platelet result. Pre vious (BANNER) (test function result was 50 -59% code = 2173) indicates mild platelet dysfunction on 11/11/2017 at 192 1 CDT [facility] [place]-PATHOLOGIST- Deven Mei MD 8829 (BANNER) (electronic (test code = signature) 8880) PLATELET COUNT 283 K/CU MM 150-450 AGG (BEAKER) (test code = 2656) TROPONIN [id number] 08:02:00 Test Item Value Reference Range Interpretation Comments TROPONIN I (BEAKER) (test code = 17.70 ng/mL 0.00-0.03 [facility]) Troponin I (TnI) levels must be interpreted [...] failure, acidosis, acute neurological disease, and persistent tachyarrhythmia.[id number] 07:55:00 Test Item Value Reference Range Interpretation Comments PARTIAL THROMBOPLASTIN TIME 42.7 seconds 22.5-36.0 H (BEAKER) (test code = 760) [id number] 07:55:00 Test Item Value Reference Range Interpretation Comments MAGNESIUM (BEAKER) (test code = 2.3 mg/dL 1.6-2.6 627) BASIC METABOLIC [id number] 07:55:00 Test Item Value Reference Range Interpretation [...] PATIEN TS. CBC W/PLT COUNT & AUTO [id number] 07:49:00 Test Item Value Reference Range Interpretation [...] PERCENT (BEAKER) (test code = 2801) POCT-GLUCOSE [id number] 07:33:00 Test Item Value Reference Range Interpretation Comments POC-GLUCOSE METER 159 mg/dL 70-110 H [facility]ED AT [facility] (test code = [place] [address]) [address] [id number] 00:57:00 Test Item Value Reference Range Interpretation Comments PARTIAL THROMBOPLASTIN TIME 47.6 seconds 22.5-36.0 H (BEAKER) (test code = 760) [id number] 00:40:00 Test Item Value Reference Range Interpretation Comments MAGNESIUM (BEAKER) 2.3 mg/dL 1.6-2.6 Specimen slightly (test code = 627) hemolyzed BASIC METABOLIC [id number] 00:40:00 Test Item Value Reference Range Interpretation [...] NOT APPLICABLE FOR DIALYSIS PATIEN TS. POCT-GLUCOSE [id number] 21:57:00 Test Item Value Reference Range Interpretation Comments POC-GLUCOSE METER 162 mg/dL 70-110 H TESTED AT [facility] 6720 (BEAKER) (test code = [place] 1538) [address] HEMOGLOBIN [id number] 19:53:00 Test Item Value Reference Range Interpretation Comments HEMOGLOBIN A1C (BEAKER) (test code = 7.0 % 4.3-6.1 H 368) LIPID [id number] 18:10:00 Test Item Value Reference Range Interpretation [...] 130-159 High 160-189 Very High >=190BASIC METABOLIC [id number] 18:10:00 Test Item Value Reference Range Interpretation [...] APPLICABLE FOR DIALYSIS PATIEN TS. HEPATIC FUNCTION [id number] 18:10:00 Test Item Value Reference Range Interpretation [...] (test code = 24 U/L 6-55 347) [id number] 17:56:00 Test Item Value Reference Range Interpretation [...] ABSOLUTE COUNT 6.27 K/ L 1.78-5.38 H (BANNER) (test code = 670) LYMPHOCYTES ABSOLUTE COUNT 2.66 K/ L 1.32-3.57 (BANNER) (test code = 414) MONOCYTES ABSOLUTE COUNT (BANNER) 1.02 K/ L 0.30-0.82 H (test code = 415) EOSINOPHILS ABSOLUTE COUNT 0.26 K/ L 0.04-0.54 (BANNER) (test code = 416) BASOPHILS ABSOLUTE COUNT (BANNER) 0.07 K/ L 0.01-0.08 (test code = 417) IMMATURE GRANULOCYTES-RELATIVE 1 % 0-1 PERCENT (BANNER) (test code = 2801) POCT-GLUCOSE [id number] 16:49:00 Test Item Value Reference Range Interpretation Comments POC-GLUCOSE METER 128 mg/dL 70-110 H TESTED AT [facility] 6720 (BANNER) (test code = [place] 1538) [address]
[2020-12-29] MEDS ORDERED: METOPROLOL TARTRATE 5 MG/5 ML INJ IV ONE (04:49)
[2020-12-29 04:53] LABS: Absolute Lymphocytes (CBC) 1.3 K/uL (0.7-4.9); Basophils % 0.5 % (0-1.3); Hematocrit 38.9 % (39.6-49.0); Lymphocytes % 9.4 % (15.3-44.8); MPV 8.7 fL (7.6-11.3); RBC Red Blood Cell Count 4.48 M/uL (4.33-5.43)
[2020-12-29 04:55] LABS: Protime INR 1.15
[2020-12-29 05:09] LABS: Albumin 3.8 g/dL (3.4-5.0); Bilirubin Direct 0.1 mg/dL (0-0.2); Bilirubin Total 0.4 mg/dL (0.2-1.0); C-Reactive Protein 5.8 mg/L (<3.00); Magnesium 1.6 mg/dL (1.8-2.4); Potassium 3.9 mmol/L (3.5-5.1); Protein, Total 7.5 g/dL (6.4-8.2); Troponin (Emerg Dept Use Only) 0.02 ng/mL (0.0-0.045)
[2020-12-29 05:35] LABS: Arterial Blood Carboxyhemoglob 2.3 % (0-1.5); Blood Gas Oxyhemoglobin 95.4 % (94-97); Blood O2 Saturation 98.5 % (92-98.5)
--- NOTE | 2020-12-29 06:26 | EDPHYS ---
Physician Documentation [facility] Name: Ludwin Hsu Age: 70 yrs Sex: Male : 1950 Arrival Date: 12/29/2020 Time: 04:07 Bed 4 Private MD: ED Physician Richard Fontana HPI: 12/29 04:32 This 70 yrs old Male presents to ER via EMS with unknown complaint. pkl 04:32 The patient has shortness of breath at rest. Onset: The symptoms/episode began/occurred pkl just prior to arrival, 2 hour(s) ago. Associated signs and symptoms: The patient has no apparent associated signs or symptoms. Historical: - Allergies: 04:31 NKA; bb - Immunization history:: Adult Immunizations up to date, Client reports receiving the 2nd dose of the Covid vaccine. - Social history:: Smoking status: unknown. ROS: 04:32 Eyes: Negative for injury, pain, redness, and discharge, ENT: Negative for injury, pkl pain, and discharge, Neck: Negative for injury, pain, and swelling. 04:32 Cardiovascular: Negative for chest pain. 04:32 Respiratory: Positive for shortness of breath, at rest. 04:32 Abdomen/GI: Negative for abdominal pain, nausea, vomiting, and diarrhea. 04:32 Back: Negative for acute changes. 04:32 : Negative for urinary symptoms. 04:32 MS/extremity: Negative for acute changes. 04:32 Skin: Negative for diaphoresis, rash. 04:32 Neuro: Negative for altered mental status, loss of consciousness. Exam: 04:32 Head/Face: Normocephalic, atraumatic. Eyes: Pupils equal round and reactive to light, pkl extra-ocular motions intact. Lids and lashes normal. Conjunctiva and sclera are non-icteric and not injected. Cornea within normal limits. Periorbital areas with no swelling, redness, or edema. ENT: Nares patent. No nasal discharge, no septal abnormalities noted. Tympanic membranes are normal and external auditory canals are clear. Oropharynx with no redness, swelling, or masses, exudates, or evidence of obstruction, uvula midline. Mucous membranes moist. Neck: Trachea midline, no thyromegaly or masses palpated, and no cervical lymphadenopathy. Supple, full range of motion without nuchal rigidity, or vertebral point tenderness. No Meningismus. Chest/axilla: Normal chest wall appearance and motion. Nontender with no deformity. No lesions are appreciated. 04:32 Cardiovascular: Rate: tachycardic, actual rate is 11 bpm, Rhythm: irregularly irregular. 04:32 ECG was reviewed by the Attending Physician. 04:32 Respiratory: mild respiratory distress is noted, Respirations: labored breathing, that is mild, Breath sounds: rales, that are mild, are scattered. 04:32 Abdomen/GI: Exam negative for acute changes. 04:32 Back: Exam negative for pain at rest. 04:32 : Exam negative for acute changes. 04:32 Musculoskeletal/extremity: Exam is negative for acute changes. 04:32 Skin: Exam negative for rash. 04:32 Neuro: Orientation: is normal, Mentation: is normal, Cranial nerves: grossly normal, Motor: is normal. Vital Signs: 04:28 BP 139 / 92; Pulse 111; Resp 18 S; Temp 97.9(O); Pulse Ox 94% on R/A; Weight 115.67 kg bb (R); Height 6 ft. 0 in. (182.88 cm); 04:53 BP 130 / 86; Pulse 104; Resp 22; Pulse Ox 94% ; ms4 04:28 Body Mass Index 34.58 (115.67 kg, 182.88 cm) bb MDM: 04:12 Patient medically screened. pkl 06:07 Data reviewed: vital signs, nurses notes, lab test result(s), EKG, radiologic studies, pkl CT scan, plain films. 06:21 ED course: Patient feeling better. Discussed lab, EKG and imaging studies with patient. pkl Advised [facility] to 2 days. Patient understood instructions. 12/29 04:23 Order name: Basic Metabolic Panel; Complete Time: 06:04 pkl 12/29 04:23 Order name: CBC with Diff; Complete Time: 06:04 pkl 12/29 04:23 Order name: LFT's; Complete Time: 06:04 pkl 12/29 04:23 Order name: Magnesium; Complete Time: 06:04 pkl 12/29 04:23 Order name: NT PRO-BNP; Complete Time: 06:04 pkl 12/29 04:23 Order name: PT-INR; Complete Time: 06:04 pkl 12/29 04:23 Order name: Troponin (emerg Dept Use Only); Complete Time: 06:04 pkl 12/29 04:25 Order name: ABG; Complete Time: 06:04 pkl 12/29 04:42 Order name: Creatinine, Serum pkl 12/29 04:50 Order name: D-Dimer; Complete Time: 06:04 EDMS 12/29 04:23 Order name: XRAY Chest (1 view) pkl 12/29 04:23 Order name: EKG; Complete Time: 04:24 pkl 12/29 04:23 Order name: Cardiac monitoring; Complete Time: 04:32 pkl 12/29 04:23 Order name: EKG - Nurse/Tech; Complete Time: 04:32 pkl 12/29 04:23 Order name: IV Saline Lock; Complete Time: 04:32 pkl 12/29 04:23 Order name: Labs collected and sent; Complete Time: 04:32 pkl 12/29 04:23 Order name: O2 Per Protocol; Complete Time: 04:32 pkl 12/29 04:42 Order name: CT Chest For PE Angio pkl 12/29 04:50 Order name: C-Reactive Protein; Complete Time: 06:04 EDMS 12/29 06:52 Order name: SARS-COV-2 RT PCR; Complete Time: 06:55 EDMS 12/29 07:13 Order name: CREATININE WHOLE BLOOD EDMS 12/29 04:23 Order name: O2 Sat Monitoring; Complete Time: 04:32 pkl Administered Medications: 04:52 Drug: Lopressor (metoprolol) 5 mg Route: IVP; Site: right antecubital; ms4 04:52 Follow up: Response: No adverse reaction ms4 07:03 Drug: Lasix (furosemide) 60 mg Route: IVP; Site: left hand; aa5 07:17 Drug: Rocephin (cefTRIAXone) 1 grams Route: IV; Rate: calculated rate; Site: left hand; tr6 07:30 Drug: Magnesium Sulfate 1 grams Route: IVPB; Infused Over: 1 hrs; Site: left hand; bp 07:44 CANCELLED (Physician Discretion): SOLU-Medrol (methylPrednisoLONE) 125 mg IVP once bp Disposition Summary: 12/29/20 06:25 Discharge Ordered Location: Home pkl Problem: new pkl Symptoms: have improved pkl Condition: Stable pkl Diagnosis - Acute dyspnea. CHF. COPD exacerbation. Atrial fribrillation with RVR pkl Followup: pkl - With: Private Physician - When: 1 - 2 days - Reason: Re-evaluation by your physician Discharge Instructions: - Discharge Summary Sheet pkl Forms: - Medication Reconciliation Form pkl - Thank You Letter pkl - Antibiotic Education pkl - Prescription Opioid Use pkl Prescriptions: - Prednisone 20 mg Oral Tablet - take 1 tablet by ORAL route once daily for 5 days; 5 tablet; Refills: 0, pkl Product Selection Permitted - Zithromax Z-Kishore 250 mg Oral Tablet - take 1 tablet by ORAL route as directed for 5 days Day 1 - take two (2) tablets pkl one time. Day 2, 3, 4 , 5 take one (1) tablet once daily.; 6 tablet; Refills: 0, Product Selection Permitted - Lasix 40 mg Oral Tablet - take 1 tablet by ORAL route once daily for 30 days; 30 tablet; Refills: 0, pkl Product Selection Permitted - Albuterol Sulfate 2.5 mg /3 mL (0.083 %) Inhalation Solution for Nebulization - inhale 1 unit by NEBULIZATION route every 8 hours As needed; 1 box; Refills: 0, pkl Product Selection Permitted Signatures: Dispatcher [employer] EDMS Richard Fontana MD MD pkl Lianna Broderick RN RN bb Christie Amaya RN RN aa5 Uri Tony RN RN bp Marlen Whaley RN RN tr6 Elo Hale RN RN ms4 Corrections: (The following items were deleted from the chart) 04:43 04:43 Creatinine ordered. EDMS EDMS 04:43 04:43 Creatinine ordered. EDMS EDMS 04:50 04:26 D-DIMER+COAG.LAB.BRZ ordered. EDMS EDMS 04:50 04:26 C-REACTIVE PROTEIN+C.LAB.BRZ ordered. EDMS EDMS 05:43 04:26 CORONAVIRUS+MR.LAB.BRZ ordered. EDMS EDMS 07:44 06:20 SOLU-Medrol (methylPrednisoLONE) 125 mg IVP once ordered. pkl bp
--- NOTE | 2020-12-29 06:26 | ER ---
Nurse's Notes [facility] Name: Ludwin Hsu Age: 70 yrs Sex: Male : 1950 Arrival Date: 12/29/2020 Time: 04:07 Bed 4 Private MD: Diagnosis: Acute dyspnea. CHF. COPD exacerbation. Atrial fribrillation with RVR Presentation: 12/29 04:28 Chief complaint: EMS states: they were toned out for report of pt with sudden onset of bb shortness of breath. Coronavirus screen: shortness of breath. Ebola Screen: No symptoms or risks identified at this time. Initial Sepsis Screen: Does the patient meet any 2 criteria? Does the patient have a suspected source of infection? No. Patient's initial sepsis screen is negative. Risk Assessment: Do you want to hurt yourself or someone else? Patient reports no desire to harm self or others. Onset of symptoms was December 29, 2020. 04:28 Method Of Arrival: EMS: Pool EMS bb 04:28 Acuity: NGUYEN 2 bb 04:31 Note pt room air sat at home was 89% on EMS arrival. Care prior to arrival: bb Medication(s) given: Normal saline infusion, 250 mLs IV initiated. 20 GA, in the left hand, Glucose check: 223 Med neb given. Oxygen administered. via CPAP or BiPAP. Triage Assessment: 04:54 General: Appears distressed, uncomfortable, obese, well developed, well nourished, bs2 Behavior is cooperative, appropriate for age, anxious. Pain: Denies pain. Historical: - Allergies: 04:31 NKA; bb - Immunization history:: Adult Immunizations up to date, Client reports receiving the 2nd dose of the Covid vaccine. - Social history:: Smoking status: unknown. Screenin:52 Abuse screen: Denies threats or abuse. Denies injuries from another. Nutritional ms4 screening: No deficits noted. Tuberculosis screening: No symptoms or risk factors identified. Fall Risk None identified. Vital Signs: 04:28 BP 139 / 92; Pulse 111; Resp 18 S; Temp 97.9(O); Pulse Ox 94% on R/A; Weight 115.67 kg bb (R); Height 6 ft. 0 in. (182.88 cm); 04:53 BP 130 / 86; Pulse 104; Resp 22; Pulse Ox 94% ; ms4 04:28 Body Mass Index 34.58 (115.67 kg, 182.88 cm) bb ED Course: 04:07 Patient arrived in ED. bp1 04:11 Richard Fontana MD is Attending Physician. pkl 04:31 Triage completed. bb 04:31 Arm band placed on Patient placed in an exam room, on a stretcher, on oxygen, on bb environmental monitoring specialist, on pulse oximetry, RT at bedside for placement of Bipap. 04:34 Initial lab(s) drawn, by me, sent to lab. First set of blood cultures drawn by me. tt3 04:43 Inserted saline lock: 20 gauge in right antecubital area, using aseptic technique. tt3 Blood collected. 04:50 XRAY Chest (1 view) In Process Unspecified. EDMS 04:51 Sue Harley, RN is Primary Nurse. bs2 04:51 C-Reactive Protein Sent. bs2 04:51 D-Dimer Sent. bs2 04:51 Creatinine, Serum Sent. bs2 04:51 ABG Sent. bs2 04:51 Basic Metabolic Panel Sent. bs2 04:51 CBC with Diff Sent. bs2 04:51 LFT's Sent. bs2 04:52 Magnesium Sent. bs2 04:52 NT PRO-BNP Sent. bs2 04:52 PT-INR Sent. bs2 04:52 Troponin (emerg Dept Use Only) Sent. bs2 04:52 Maintain EMS IV. Dressing intact. Good blood return noted. Site clean \T\ dry. Gauge \T\ ms 4 site: 20 g L hand. 04:54 Patient has correct armband on for positive identification. Placed in gown. Bed in low bs2 position. Call light in reach. Side rails up X2. engine monitor on. Pulse ox on. NIBP on. Door closed. Lights dimmed. Warm blanket given. Pillow given. 04:55 No provider procedures requiring assistance completed. bs2 04:56 Patient admitted, IV remains in place. bs2 05:40 CT Chest For PE Angio In Process Unspecified. EDMS 07:44 Primary Nurse role handed off by Sue Harley, RN bp 07:44 Uri Tony, RN is Primary Nurse. bp 10:48 IV discontinued, intact, bleeding controlled, No redness/swelling at site. Pressure jl7 dressing applied. Administered Medications: 04:52 Drug: Lopressor (metoprolol) 5 mg Route: IVP; Site: right antecubital; ms4 04:52 Follow up: Response: No adverse reaction ms4 07:03 Drug: Lasix (furosemide) 60 mg Route: IVP; Site: left hand; aa5 07:17 Drug: Rocephin (cefTRIAXone) 1 grams Route: IV; Rate: calculated rate; Site: left hand; tr6 07:30 Drug: Magnesium Sulfate 1 grams Route: IVPB; Infused Over: 1 hrs; Site: left hand; bp 07:44 CANCELLED (Physician Discretion): SOLU-Medrol (methylPrednisoLONE) 125 mg IVP once bp Outcome: 06:25 Discharge ordered by . pravin 10:48 Discharged to home ambulatory, with family. jl7 10:48 Condition: stable 10:48 Discharge instructions given to patient, Instructed on discharge instructions, follow up and referral plans. medication usage, Demonstrated understanding of instructions, follow-up care, medications, Prescriptions given X 4. 10:49 Patient left the ED. jl7 Signatures: Dispatcher [employer] EDMS Richard Fontana MD MD pkLianna Rodriguez RN RN bb Christie Amaya RN RN aa5 Theo Carlos RN RN jl7 Uri Tony RN RN bp Irene Hooks Tyler tt3 Marlen Whaley RN RN tr6 Sue Harley RN RN bs2 Elo Hale RN RN ms4
[2020-12-29] MEDS ORDERED: FUROSEMIDE 100 MG/10 ML VIAL IV ONE (07:21)
[2020-12-29] MEDS ORDERED: MAGNESIUM SULFATE 1 gm IVPB 1 GM/100 ML BAG IV ONE (07:25)
[2020-12-29] MEDS ORDERED: NA CHLORIDE 0.9% 50 ML ONE (07:25)
[2020-12-29] MEDS ORDERED: CEFTRIAXONE/SWI 1gm 1 GM/10 ML SYR ONE (07:25)
--- NOTE | 2020-12-29 09:05 | RAD REPORT ---
EXAM DESCRIPTION: RAD - Chest Single View - 12/29/2020 4:50 am CLINICAL HISTORY: DYSPNEA Chest pain. COMPARISON: Chest Single View dated 09/18/2020; Chest Single View dated 09/17/2020; Chest Single View dated 08/28/2020; Chest Single View dated 08/22/2020; Chest For Pe Angio dated 12/29/2020 FINDINGS: Portable technique limits examination quality. Mild interstitial pulmonary edema seen. Small pleural effusions. The heart is mildly enlarged in size with changes of prior CABG. No displaced fractures. IMPRESSION: Mild to moderate CHF.
[2020-12-29 11:03] VITALS: TEMP 97.9; O2SAT 94
[2020-12-29 11:04] VITALS: BP 130/86
--- NOTE | 2020-12-29 11:07 | RAD REPORT ---
EXAM DESCRIPTION: CT Angiography Chest With Intravenous Contrast EXAM DATE/TIME: December 29, 2020 at 0533 hours CLINICAL HISTORY: The patient is 70 years old and is Male; DYSPNEA TECHNIQUE: Axial computed tomographic angiography images of the chest with intravenous contrast. S agittal and coronal reformatted images were created and reviewed. This CT exam was performed using one or more of the following dose reduction techniques: automated exposure control, adjustment of t he mA and/or kV according to patient size, and/or use of iterative reconstruction technique. MIP reconstructed images were created and reviewed. COMPARISON: No relevant prior studies available. FINDINGS: PULMONARY ARTERIES: There are no obvious filling defects identified within the pulmonary arteries to suggest pulmonary embolism. AORTA: No acute findings. No thoracic aortic aneurysm. LUNGS: Mild smooth interlobular thickening is noted. There is no lobar consolidation. PLEURAL SPACE: Small bilateral pleural effusions are present. No pneumothorax. HEART: The heart is enlarged. There is no pericardial effusion. No evidence of RV dysfunction. BONES/JOINTS: No acute fracture. No dislocation. SOFT TISSUES: Unremarkable. LYMPH NODES: Unremarkable. No enlarged lymph nodes. IMPRESSION: 1. No evidence of pulmonary embolism. 2. Small bilateral pleural effusions with smooth interlobular thickening which may be secondary to mild edematous process. Electronically signed by: Kari Giang MD 12/29/2020 5:58 AM CDT Due to temporary technical issues with the PACS/Fluency reporting system, reports are being signed by the in house radiologist without review as a courtesy to ensure prompt reporting. The interpreting r adiologist is fully responsible for the content of the report.
== END 2020-12-29 10:49 | disposition home or self-care (01) ==
LOC: ER 04:06
DX: J44.1 Chronic obstructive pulmonary disease with (acute) exacerbation (principal); I50.9 Heart failure, unspecified; I48.20 Chronic atrial fibrillation, unspecified
CPT/HCPCS: 93005; 85025; 80048; 36415; 83735; 85610; 82565; 85379; 80076; 84484; 83880; 86140; 71275; 71045; 82805; 99285; U0003; Q9967; J3475; J0696

== ENCOUNTER 2021-01-13 01:14 | Inpatient (IN) | payer OTHER ==
--- OUTSIDE RECORDS SUMMARY | 2021-01-13 01:20 | XMS REPORT | Continuity of Care Document ---
:1950 Author Organization [facility] t Address [address] Jean Baptiste. [address] [place] [address] Care Team Providers Name Role Phone Arline Primary Care Physician 2, Lab Attending Clinician Unavailable Gage ESCOTO, K.H. Attending Clinician Eloisa LYMAN [...] Disease [facility] ([facility] - [facility] - artery artery 00:00: Medical [...] Disease Active [facility] (coronary (coronary 11-11 Luke s - artery artery 00:00: Medical disease) disease) 00 Center CKD CKD Disease Active Overview: [facility] (chronic (chronic 05-06 Baseline Luke s - kidney kidney 00:00: Creatinin Medical disease) disease) 00 e ~ 1-1.[address] stage 2, stage 2, GFR 60-89 GFR 60-89 ml/min ml/min Coronary Coronary Disease Active Overview: [facility] artery artery 05-06 PCI 2013, [facility] - disease disease 00:00: 2016- on Medica l 00 plavix / Center ACB x 3: IBRAHIM-> LAD, SVG-> OM1, SVG-> OM2 Diabetes Diabetes Disease Active Overview: [facility] mellitus mellitus 05-06 oral meds Holly es - 00:00: including Medical 00 metformin Center Hypertensi Hypertensi Disease Active [facility] on on 05-06 [facility] - 00:00: Medical 00 [place] Hepatitis Hepatitis Disease Active 2006-05 Overview: Univers 0-18 Formattin ity of 00:00: g of this [place] 00 note Medical might be Branch different from the original. Hepatitis CICD10 Diagnosis Term Methods Study Analyst Utility NORRIS on NORRIS on Disease Active Overview: MELY Monahan CPAP CPAP claims [facility] with Center CPAP Current Current Disease Active [facility] St smoker smoker [facility] Allergies, Adverse Reactions, Alerts Allergy Allergy Status Severity Reaction(s) Onset Inactive Treating Comm ents Source Name Type Date Date Clinician No Known DA Active [facility] Allergie 08-12 [place] s 00:00: [address] Social History Social Habit Start Date Stop Date Quantity Comments Source Exposure to Not sure University of SARS-CoV-2 (event) [facility] Sex Assigned At [facility] Center Cigarettes smoked 2018-01-22 2018-01-22 MELY Guido - current (pack per 00:00:00 00:00:00 Medical Center day) - Reported Cigarette 2018-01-22 2018-01-22 MELY Guido - pack-years 00:00:00 00:00:00 [facility] Tobacco use and 2018-01-22 2018-01-22 Never used [facility] St Katerine vyas - exposure 00:00:00 00:00:00 [facility] Alcohol intake 2018-01-22 2018-01-22 Current [facility] Holly es - 00:00:00 00:00:00 non-drinker of Medical Ce nter alcohol (finding) Smoking Status Start Date Stop Date Source Unknown if ever smoked [facility] y [facility] Current every day smoker 2018-01-22 00:00:00 [facility] Medications Ordered Filled Start Stop Current Ordering Indication Dosage Frequency Signature Comments Components Source Medication Medication Date Date Medication? Clinician (SIG) Name Name aspirin 81 Yes 81mg Take 81 mg U nivers mg EC 09 by mouth ity of tablet 19:03: daily. [place] 25 [facility] Branch ARIPiprazol Yes 30mg Take 30 mg Univers e 30 mg 9-09 by mouth ity of tablet 18:36: daily. [address] atorvastati Yes 40mg Take 40 mg Univers n 40 mg -09 by mouth ity of tablet 18:36: at [place] [address] bedtime. Medical Branch glipiZIDE Yes 10mg Take 10 mg Un emilia 10 mg 9-09 by mouth ity of tablet 18:36: daily. [address] Branch rivaroxaban Yes Take by Un emilia 20 mg 9-09 mouth ity of tablet 18:36: daily. [address] losartan 0 Yes 100mg Take 100 Univ ers 100 mg 9-09 mg by ity of tablet 18:36: mouth [place] [address] daily. Medical Branch furosemide Yes 20mg Take 20 mg U nivers (LASIX) 80 8-12 by mouth ity o f mg tablet 15:15: daily. [place] 56 Indication Medical s: pt Branch stopped taking d/t incontinen ce XANAX 1 MG Yes 3 tabs Unive rs ORAL TAB 8-12 daily ity of 14:33: [place] 19 Medical Branch gabapentin Yes 1200mg Take 1,200 Univers 400 mg 8-12 mg by ity of capsule 14:32: mouth 3 [place] 38 (three) Medical times Branch daily. carvedilol Yes 25mg Take 25 mg U nivers 25 mg 8-12 by mouth 2 ity of tablet 14:23: (two) [place] 06 times Medical daily with Branch meals. metFORMIN Yes 1000mg Take 1,000 Univers 1,000 mg 8-12 mg by ity of tablet 14:23: mouth 2 [place] 06 (two) Medical times Branch daily with meals. carvedilol Yes 12.5mg Take 12.[address] (COREG) 25 9-20 mg by [facility] - MG tablet 10:15: mouth 2 Medic al 53 (two) Center times daily with breakfast and dinner . clopidogrel Yes 75mg QD Take [address] (PLAVIX) 75 9-20 by mouth Luke s - mg tablet 10:15: daily. Medica l 53 [place] aspirin 81 Yes 81mg QD Take [address] MG EC 9-20 by mouth [facility] - tablet 10:15: daily. Medical 53 [place] esomeprazol Yes 20mg QD Take [address] e (NEXIUM) 9-20 by mouth [facility]ukes - 20 MG 10:15: daily. Medical capsule 53 Center gabapentin Yes 1200mg Q.[id number] Take 1,[address] (NEURONTIN) 9-20 [id number] mg by L ukes - 600 MG 10:15: 3D mouth 3 Medical tablet 53 (three) Center times daily. glipiZIDE 2017-0 Yes 10mg Q.5D Take [address] (GLUCOTROL 9-20 by mouth 2 Holly es - XL) 10 MG 10:15: (two) Medical 24 hr 53 times Center tablet daily. metFORMIN Yes 1000mg Q.5D Take 1,[address] [...] tablet 10:15: daily. Medi oralia 53 Center carvedilol 2018-0 Yes 12.5mg Take 12.5 CHI [...] tablet 10:15: daily. Medical 53 Center esomeprazol 2018-0 Yes 20mg QD Take [address] e (NEXIUM) 9-20 by mouth [facility]ukes - 20 MG 10:15: daily. Medical capsule 53 Center gabapentin 2018-0 Yes 1200mg Q.[id number] Take 1,[address] (NEURONTIN) 9-20 [id number] mg by L ukes - 600 MG [...] s - 5 MG tablet 10:15: daily. [address] furosemide 2018-0 Yes Resume [facility] (LASIX) 80 7-17 taking as Luke s - MG tablet 00:00: you were Medi oralia 00 prior to Center admission. polyethylen 2018-0 Yes Use daily [facility] e glycol 7-17 per [facility]ukes - (GLYCOLAX) 00:00: package Medi oralia 17 gram 00 [facility] packet ns. Is over the counter. furosemide 2018-0 Yes Resume [facility] (LASIX) 80 7-17 taking as Luke s - MG tablet 00:00: you were Medi oralia 00 prior to Center admission. polyethylen 2018-0 Yes Use daily [facility] e glycol 7-17 per [facility] - (GLYCOLAX) 00:00: package Medi oralia 17 gram 00 [facility] packet ns. Is over the counter. Immunizations Ordered Filled Immunization Date Status Comments [facility] e Immunization Name Name SARS-COV-2 COVID-19 2020-07-23 Completed Unive rsity of PFIZER VACCINE 00:00:00 [facility] SARS-COV-2 COVID-19 2020-07-02 Completed Unive rsity of PFIZER VACCINE 00:00:00 [facility] Procedures This patient has no known procedures. Plan of Care Planned Activity Planned Date Details Comments Source Future Scheduled 2021-01-[address] [facility] - Test 00:00:00 (Season Ended) [code = [facility] INFLUENZA VACCINE (Season Ended)] Future Scheduled 2021-01-[address] [facility] - Test 00:00:00 (Season Ended) [code = [facility] INFLUENZA VACCINE (Season Ended)] Future Scheduled 2020-05-[address] [facility] - Test 00:00:00 (12+) [code = [facility] Center DEPRESSION SCREENING (12+)] Future Scheduled 2020-05-[address] [facility] - Test 00:00:00 (12+) [code = [facility] Center DEPRESSION SCREENING (12+)] Future Scheduled 2018-07-[address] Katerine kes - Test 00:00:00 [facility] (procedure) [code = 14763556] Future Scheduled 2018-07-[address] Katerine kes - Test 00:00:00 measurement Medical Center (procedure) [code = 15200902] Future Scheduled 2014-11-[address] [facility] - Test 00:00:00 WELLNESS (YEAR 2 or Medical Center FIRST YEAR if no IPPE) [code = MEDICARE ANNUAL WELLNESS (YEAR 2 or FIRST YEAR if no IPPE)] Future Scheduled 2014-11-[address] [facility] - Test 00:00:00 WELLNESS (YEAR 2 or Medical Center FIRST YEAR if no IPPE) [code = MEDICARE ANNUAL WELLNESS (YEAR 2 or FIRST YEAR if no IPPE)] Future Scheduled 2013 PNEUMOCOCCAL 65+ YRS [facility] - Test 00:00:00 (1 of 1 - Medical Center [id number] PCV13) [code = PNEUMOCOCCAL 65+ YRS (1 of 1 - [id number] PCV13)] Future Scheduled 2013 PNEUMOCOCCAL 65+ YRS [facility] - Test 00:00:00 (1 of 1 - Medical Center [id number] PCV13) [code = PNEUMOCOCCAL 65+ YRS (1 of 1 - [id number] PCV13)] Future Scheduled 1998 SHINGLES VACCINES ([address] [facility] - Test 00:00:00 of 2) [code = SHINGLES Medic al Center VACCINES (1 of 2)] Future Scheduled 1998 SHINGLES VACCINES ([address] [facility] - Test 00:00:00 of 2) [code = SHINGLES Medic al Center VACCINES (1 of 2)] Future Scheduled 1967-11-21 DTAP/TDAP/TD [facility]ACCINES [facility] - Test 00:00:00 (1 - Tdap) [code = Medical C enter DTAP/TDAP/TD VACCINES (1 - Tdap)] Future Scheduled 1967-11-21 DTAP/TDAP/TD VACCINES [facility] - Test 00:00:00 (1 - Tdap) [code = Medical C enter DTAP/TDAP/TD VACCINES (1 - Tdap)] Future Scheduled 1966 HEPATITIS C SCRE[facility]ING [facility] Test 00:00:00 [code = HEPATITIS C Medical Center SCREENING] Future Scheduled 1966 HEPATITIS C [facility]CRE[facility]ING [facility] Test 00:00:00 [code = HEPATITIS C Medical Center SCREENING] Future Scheduled 1960 COVID-19 VACCINE (1) [facility] - Test 00:00:00 [code = COVID-[address] VACCINE (1)] Future Scheduled 1960 COVID-19 VACCINE (1) [facility] - Test 00:00:00 [code = COVID-[address] VACCINE (1)] Future Scheduled 1958 DIABETIC EYE EXAM [facility] - Test 00:00:00 [code = DIABETIC EYE Medical Center EXAM] Future Scheduled [address] [facility] es - Test 00:00:00 examination Medical Center (regime/therapy) [code = 608930973] Future Scheduled 1958 Urine screening for [facility] - Test 00:00:00 protein (procedure) Medical Center [code = 892132682] Future Scheduled [address] DIABETIC EYE EXAM [facility] - Test 00:00:00 [code = DIABETIC EYE Medical Center EXAM] Future Scheduled [address] Holly es - Test 00:00:00 examination Medical Center (regime/therapy) [code = 480264483] Future Scheduled 1958 Urine screening for [facility] - Test 00:00:00 protein (procedure) Medical Center [code = 201512179] Future Scheduled [address] [facility] [facility] es - Test 00:00:00 malignant neoplasm of Medica l Center colon (procedure) [code = 138539072] Future Scheduled [address] [facility] - Test 00:00:00 malignant neoplasm of Medica l Center colon (procedure) [code = 942420183] Encounters Start End Encounter Admission Attending Care Care Encounter Source Date/Time Date/Time Type Type Clinicians Facility Department ID 2021-01-12 2021-01-12 Editor [employer]aper 2, Adc Lab [facility] [id number] Univers 14:30:37 14:45:37 Visit Cailin Almonte [id number] [facility] [id number] Lamonte Zhao [id number] [address] 2020-12-15 2020-12-15 Office MICHAEL Almonte [id number] 31 08:50:21 09:50:59 Visit Cailin Rangel [id number] [place] [id number] Cece [id number] [facility] 059 Building Results Test Description Test Time Test Comments Results Result Comments Source GLUCOSE BEDSIDE TESTING 2020-08-13 12:07:00 Test Item Value Reference Range Interpretation Comme nts GLUCOSE BEDSIDE TESTING (test code = GLUBED) 137 MG/DL 60-99 H GLYCOSYLATED HEMOGLOBIN [id number] 11:19:00 Test Item Value Reference Range Interpretation [...] H (test code = MBG) BASIC METABOLIC [id number] 07:59:00 Test Item Value Reference Range Interpretation [...] PATIENT REFUSED; PER ANTONIO Soto (STEPHEN)BASIC METABOLIC [id number] 07:50:00 Test Item Value Reference Range Interpretation [...] code = LDL) PATIENT REFUSED; PER ANTONIO MOORE)PROTHROMBIN [id number] 07:46:00 Test Item Value Reference Range Interpretation [...] 3.0 - 4.5 PATIENT REFUSED; PER:ANTONIO MOORE)PTT [id number] 07:46:00 Test Item Value Reference Range Interpretation Comments PTT ACTIVATED (test code = APTT) 39.0 SECONDS 25.1-36.5 H PATIENT REFUSED; PER:ANTONIO MOORE)CBC W/AUTO [id number] 07:35:00 Test Item Value Reference Range Interpretation [...] PATIENT REFUSED; PER ANTONIO Soto (RN)GLUCOSE BEDSIDE [id number] 04:56:00 Test Item Value Reference Range Interpretation Comments GLUCOSE BEDSIDE TESTING (test code 123 MG/DL 60-99 H = GLUBED) GLUCOSE BEDSIDE [id number] 18:50:00 Test Item Value Reference Range Interpretation Comments GLUCOSE BEDSIDE TESTING (test code 221 MG/DL 60-99 H = GLUBED) GLUCOSE BEDSIDE [id number] 15:43:00 Test Item Value Reference Range Interpretation Comments GLUCOSE BEDSIDE TESTING (test code 126 MG/DL 60-99 H = GLUBED) GLUCOSE BEDSIDE [id number] 11:35:00 Test Item Value Reference Range Interpretation Comments GLUCOSE BEDSIDE TESTING (test code 161 MG/DL 60-99 H = GLUBED) GLYCOSYLATED HEMOGLOBIN [id number] 10:30:00 Test Item Value Reference Range Interpretation [...] H (test code = MBG) COMPREHENSIVE METABOLIC [id number] 09:27:00 Test Item Value Reference Range Interpretation [...] 38-126 N PHOSPHATASE (test code = ALKP) [id number] 09:27:00 Test Item Value Reference Range Interpretation Comments TROPONIN-I (test code = TROPI) 0.089 NG/ML 0.012-0.033 H T4 [id number] 09:07:00 Test Item Value Reference Range Interpretation Comments T4 FREE (test code = T4F) 1.5 NG/DL 0.78-2.19 N Specimen comments: please run from tsh previously drawnCOMPREHENSIVE METABOLIC [id number] 08:51:00 Test Item Value Reference Range Interpretation [...] Product Total Protein:======= Eltrombopag Max Observed A vgKhadar Novoa on Concentration Concentration== ==== 2.5 mg/dl 6.0 [...] 38-126 N PHOSPHATASE (test code = ALKP) [id number] 08:51:00 Test Item Value Reference Range Interpretation Comments TROPONIN-I (test code = TROPI) NG/ML 0.0-0.045 CBC W/AUTO [id number] 08:36:00 Test Item Value Reference Range Interpretation [...] 0.00 K/mm3 0.0-0.1 N NRBC#) GLUCOSE BEDSIDE [id number] 07:36:00 Test Item Value Reference Range Interpretation Comments GLUCOSE BEDSIDE TESTING (test code 178 MG/DL 60-99 H = GLUBED) URINALYSIS [id number] 04:39:00 Test Item Value Reference Range Interpretation [...] UACULT) Criteria SOURCE OF URINE: CLEAN CATCHURINALYSIS [id number] 04:35:00 Test Item Value Reference Range Interpretation [...] SOURCE OF URINE: CLEAN CATCHTSH REFLEX TO [id number] 04:06:00 Test Item Value Reference Range Interpretation Comments TSH REFLEX TO FT4 0.391 MIU/L 0.65-4.68 L Please be aware that (test code = bias results fo r TSH TSHREFLEX) may occur forpa tient who are taking Biotin supplements. [id number] 04:06:00 Test Item Value Reference Range Interpretation Comments MAGNESIUM (test code = MAG) 1.8 MG/DL 1.6-2.3 N LIPOPROTEIN LDL [id number] 04:06:00 Test Item Value Reference Range Interpretation Comments LIPOPROTEIN LDL DIRECT 92 mg/dL 100-129 L ===== (test code = LDLDIR) ======= ==Refe rence Interval: mg/dL mmol/L--------- ------ ------ ------ --Optimal <100 <2.6Near/abov e optimal 100-129 2.6-3.3Borderli ne High 130-159 3.4-4.1High 16 0-189 4.1-4.9Ve ry High >=190 >=4.9========= This LDL result is a direct measurement.=== ====== [id number] 04:06:00 Test Item Value Reference Range Interpretation Comments TROPONIN-I (test code = TROPI) 0.075 NG/ML 0.012-0.033 H [id number] 03:48:00 Test Item Value Reference Range Interpretation Comments MAGNESIUM (test code = MAG) 1.8 MG/DL 1.6-2.3 N LIPOPROTEIN LDL [id number] 03:48:00 Test Item Value Reference Range Interpretation Comments LIPOPROTEIN LDL DIRECT (test code = mg/dL 100-129 LDLDIR) [id number] 03:48:00 Test Item Value Reference Range Interpretation Comments TROPONIN-I (test code = TROPI) 0.075 NG/ML 0.012-0.033 H [id number] 03:38:00 Test Item Value Reference Range Interpretation Comments MAGNESIUM (test code = MAG) 1.8 MG/DL 1.6-2.3 N [id number] 03:38:00 Test Item Value Reference Range Interpretation Comments TROPONIN-I (test code = TROPI) NG/ML 0.0-0.045 GLUCOSE BEDSIDE [id number] 23:56:00 Test Item Value Reference Range Interpretation Comments GLUCOSE BEDSIDE TESTING (test code 211 MG/DL 60-99 H = GLUBED) HEMOGLOBIN [id number] 09:40:00 Test Item Value Reference Range Interpretation Comments HEMOGLOBIN A1C (AKER) (test code = 6.1 % 4.3-6.1 368) RAD, CHEST, 1 VIEW, NON [id number] 09:36:00Reason for exam:->sobShould this be performed at the bedside?->YesFINAL REPORT Chest one view compared to January 22 Discussion: There is cardiac prominence and interstitial congestion. There is linear opacity in both lower lungs. No effusionor pneumothorax. Signed: Denice Tran Verified Date/Time: 01/23/2018 09:36:57 Reading Location: [facility] Radiology Reading Room POCT-GLUCOSE [id number] 08:04:00 Test Item Value Reference Range Interpretation Comments POC-GLUCOSE METER 176 mg/dL 70-110 H TESTED AT [facility] 67[address] ([facility]) (test code = [place] 1538) [address] [id number] 06:49:00 Test Item Value Reference Range Interpretation Comments MAGNESIUM (BEAKER) 2.1 mg/dL 1.6-2.6 Specimen slightly (test code = 627) hemolyzed BASIC METABOLIC [id number] 06:49:00 Test Item Value Reference Range Interpretation [...] PATIEN TS. CBC W/PLT COUNT & AUTO [id number] 06:30:00 Test Item Value Reference Range Interpretation [...] PERCENT (BEAKER) (test code = 2801) POCT-GLUCOSE [id number] 22:19:00 Test Item Value Reference Range Interpretation Comments POC-GLUCOSE METER 235 mg/dL 70-110 H TESTED AT [facility] [address] ([facility]) (test code = [place] 1538) [address] TROPONIN [id number] 17:45:00 Test Item Value Reference Range Interpretation Comments TROPONIN I ([facility]) (test code = 0.53 ng/mL 0.00-0.03 [facility]) Troponin I (TnI) levels must [...] 0-100 H (BEAKER) (test code = 700) [id number] 17:35:00 Test Item Value Reference Range Interpretation Comments MAGNESIUM (BEAKER) (test code = 1.9 mg/dL 1.6-2.6 627) COMPREHENSIVE METABOLIC [id number] 17:35:00 Test Item Value Reference Range Interpretation [...] NOT APPLICABLE FOR DIALYSIS PATIEN TS. LIPID [id number] 17:35:00 Test Item Value Reference Range Interpretation [...] 160-189 Very High >=190LACTIC ACID, VENOUS, WHOLE [id number] 17:29:00 Test Item Value Reference Range Interpretation Comments LACTATE BLOOD VENOUS 1.0 mmol/L 0.5-2.2 Specime n slightly (2) (BEAKER) (test hemolyzed code = 2872) Effective 09/07/2015: Units/Reference Range ChangeNew: 0.5-2.2 mmol/L Previous: 5-20 mg/[id number] 17:29:00 Test Item Value Reference Range Interpretation Comments PARTIAL THROMBOPLASTIN TIME 46.7 seconds 22.5-36.0 H (BEAKER) (test code = 760) PROTHROMBIN [id number] 17:28:00 Test Item Value Reference Range Interpretation [...] = 2801) RAD, CHEST, 1 VIEW, NON [id number] 17:16:00Reason for exam:->sp acute respiratory failure/bronchospasmShould this [...] Banegas Verified Date/Time: 01/22/2018 17:16:12 Reading Location: [facility] Reading Room POCT-GLUCOSE [id number] 17:12:00 Test Item Value Reference Range Interpretation Comments POC-GLUCOSE METER 118 mg/dL 70-110 H TESTED AT [facility] 67 ([facility]) (test code = [place] [address]) [address] BLOOD GAS, [id number] 16:35:00 Test Item Value Reference Range Interpretation [...] (test code = 1819) 32.0 % POCT-GLUCOSE [id number] 14:15:00 Test Item Value Reference Range Interpretation Comments POC-GLUCOSE METER 69 mg/dL 70-110 L Will Repea t Test/TESTED (BEAKER) (test code = AT [facility] [address] [address] 0 POCT-GLUCOSE [id number] 08:43:00 Test Item Value Reference Range Interpretation Comments POC-GLUCOSE METER 277 mg/dL 70-110 H TESTED AT [facility] 67[address] (BEAKER) (test code = [place] 15[address]) [address] [id number] 06:20:00 Test Item Value Reference Range Interpretation Comments PHOSPHORUS (BEAKER) (test code = 3.3 mg/dL 2.3-4.7 604) [id number] 06:20:00 Test Item Value Reference Range Interpretation Comments MAGNESIUM (BEAKER) (test code = 1.8 mg/dL 1.6-2.6 627) BASIC METABOLIC [id number] 06:20:00 Test Item Value Reference Range Interpretation [...] PATIEN TS. CBC W/PLT COUNT & AUTO [id number] 06:09:00 Test Item Value Reference Range Interpretation [...] PERCENT (BEAKER) (test code = 2801) POCT-GLUCOSE [id number] 22:48:00 Test Item Value Reference Range Interpretation Comments POC-GLUCOSE METER 196 mg/dL 70-110 H TESTED AT [facility] [address] (BEAKER) (test code = [place] 1538) [address] POCT-GLUCOSE [id number] 17:21:00 Test Item Value Reference Range Interpretation Comments POC-GLUCOSE METER 122 mg/dL 70-110 H TESTED AT [facility] [address] (BEAKER) (test code = [place] 1538) [address] [id number] 13:13:00 Test Item Value Reference Range Interpretation Comments PHOSPHORUS (BEAKER) (test code = 2.4 mg/dL 2.3-4.7 604) BASIC METABOLIC [id number] 13:13:00 Test Item Value Reference Range Interpretation [...] S NOT APPLICABLE FOR DIALYSIS PATIEN TS. [id number] 13:08:00 Test Item Value Reference Range Interpretation Comments MAGNESIUM (BEAKER) (test code = 1.7 mg/dL 1.6-2.6 627) CBC W/PLT COUNT & AUTO [id number] 12:50:00 Test Item Value Reference Range Interpretation [...] 0-1 PERCENT (BEAKER) (test code = 2806) POCT-GLUCOSE [id number] 12:42:00 Test Item Value Reference Range Interpretation Comments POC-GLUCOSE METER 174 mg/dL 70-110 H TESTED AT [facility] 67[address] (BEAKER) (test code = [place] 1538) [address] POCT-GLUCOSE [id number] 08:01:00 Test Item Value Reference Range Interpretation Comments POC-GLUCOSE METER 175 mg/dL 70-110 H TESTED AT [place] [id number] ([facility]) (test code = [place] [facility] 1538) [address] RAD, CHEST, 1 VIEW, NON [id number] 03:44:00Reason for exam:->ptxShould this be performed at [...] MDReport Verified Date/Time: 11/18/2017 03:44:04 Reading Location: [address] Reading Room POCT- GLUCOSE [id number] 21:05:00 Test Item Value Reference Range Interpretation Comments POC-GLUCOSE METER 145 mg/dL 70-110 H TESTED AT [place] [address] ([facility]) (test code = [place] [facility] 1538) [address] POCT-GLUCOSE [id number] 17:19:00 Test Item Value Reference Range Interpretation Comments POC-GLUCOSE METER 129 mg/dL 70-110 H TESTED AT [place] [address] ([facility]) (test code = [place] [facility] 1538) [address] POCT-GLUCOSE [id number] 12:12:00 Test Item Value Reference Range Interpretation Comments POC-GLUCOSE METER 194 mg/dL 70-110 H TESTED AT [place] [address] ([facility]) (test code = [place] [facility] 1538) [address] POCT-GLUCOSE [id number] 07:30:00 Test Item Value Reference Range Interpretation Comments POC-GLUCOSE METER 171 mg/dL 70-110 H TESTED AT [place] [address] ([facility]) (test code = [place] [facility] 1538) [address] RAD, CHEST, 1 VIEW, NON [id number] 07:27:00Reason for exam:->ptxShould this be performed at [...] MDReport Verified Date/Time: 11/17/2017 07:27:16 Reading Location: [address] Consult Reading Room [id number] 07:19:00 Test Item Value Reference Range Interpretation Comments MAGNESIUM (BEAKER) (test code = 1.9 mg/dL 1.6-2.6 627) BASIC METABOLIC [id number] 07:19:00 Test Item Value Reference Range Interpretation [...] 697) EGFR (BEAKER) (test 69 mL/min/1.73 ESTIMA TRO GFR IS code = 1092) sq m NOT ACCURATE CREATININE CLEARANCE IN PREDICTING GLOMERULAR FILTRATION RATE . ESTIMATED GFR I S NOT APPLICABLE FOR DIALYSIS PATIEN TS. POCT-GLUCOSE [id number] 21:30:00 Test Item Value Reference Range Interpretation Comments POC-GLUCOSE METER 214 mg/dL 70-110 H TESTED AT [facility] 6720 (BEAKER) (test code = [place] 1538) [address] URINALYSIS W/ REFLEX URINE [id number] 16:32:00 Test Item Value Reference Range Interpretation [...] = 2795) RAD, CHEST, 1 VIEW, NON [id number] 15:34:00Reason for exam:->ptxShould this be performed at [...] the left sided chest tube. Signed: Boaz Estebaneport Verified Date/Time: 11/16/2017 15:34:49 Reading Location: [facility] B1 C013W Consult Reading Room POCT-GLUCOSE [id number] 12:10:00 Test Item Value Reference Range Interpretation Comments POC-GLUCOSE METER 203 mg/dL 70-110 H TESTED AT [place] [address] ([facility]) (test code = [place] 1538) [address] POCT-GLUCOSE [id number] 08:21:00 Test Item Value Reference Range Interpretation Comments POC-GLUCOSE METER 181 mg/dL 70-110 H TESTED AT [place] [address] ([facility]) (test code = [place] 1538) [address] RAD, CHEST, 1 VIEW, NON [id number] 08:03:00while patient is intubated or has chest [...] Tran Verified Date/Time: 11/16/2017 08:03:32 Reading Location: [address] Reading Room POCT-GLUCOSE [id number] 00:11:00 Test Item Value Reference Range Interpretation Comments POC-GLUCOSE METER 159 mg/dL 70-110 H TESTED AT [facility] 67 ([facility]) (test code = [place] 1538) [address] POCT-GLUCOSE [id number] 20:33:00 Test Item Value Reference Range Interpretation Comments POC-GLUCOSE METER 163 mg/dL 70-110 H TESTED AT [facility] 67 ([facility]) (test code = [place] 1538) [address] POCT-GLUCOSE [id number] 17:33:00 Test Item Value Reference Range Interpretation Comments POC-GLUCOSE METER 183 mg/dL 70-110 H TESTED AT [facility] 6720 (BEAKER) (test code = [place] 1538) [address] URINE IMMUNOFIXATION, [id number] 17:17:00 Test Item Value Reference Range Interpretation Comments PROTEIN, URINE 30 mg/dL 0-14 H (BEAKER) (test code = 1569) ALBUMIN URINE ELP 61.4 % (BEAKER) (test code = 1018) GAMMA GLOBULIN URINE 38.6 % (BEAKER) (test code = 1015) URINE GERARD ID-[id number] No monoclonal proteins (BEAKER) (test code = or monoclonal free 2602) light chains detected. [id number] Raine Martin MD ([facility]) (test code = (electronic signature) 2603) RAD, CHEST, 1 VIEW, NON [id number] 13:19:00while patient is intubated or has chest tubes.Reason for exam:->PostopShould this be performed atthe bedside?->YesFINAL REPORT Chest one view compared to November 14 Discussion: Left chest tube, right IJ pulmonary catheter are noted. There is pulmonary congestion and right midlung linear atelectasis grossly similar. No gross effusion. Tiny left apical pneumothorax unchanged. Signed: Denice Tranort Verified Date/Time: 11/15/2017 13:19:28 Reading Location: [facility] Radiology ReadingRoom URINE PROTEIN ELECTROPHORESIS, RANDOM 2017-11-15 12:47:00 Test Item Value Reference Range Interpretation Comments PROTEIN, URINE 12 mg/dL 0-14 (BEAKER) (test code = 1569) ALBUMIN URINE ELP 61.4 % (BEAKER) (test code = 1018) GAMMA GLOBULIN URINE 38.6 % (BEAKER) (test code = 1015) UPEP, ID-[id number] (BEAKER) No monoclonal bands (test code = 2604) detected. [id number] Raine Martin MD ([facility]) (test code = (electronic signature) 2605) PROTEIN ELECTROPHORESIS, [id number] 12:29:00 Test Item Value Reference Range Interpretation [...] a hemolyzed sample. No monoclonal bands detected. [id number] Raine Martin MD (BEAKER) (test code = (electronic signature) 6909) PROTEIN TOTAL SERUM, 7.0 gm/dL 6.0-8.3 SPEP (BEAKER) (test code = 4225) BLOOD GAS, [id number] 08:21:00 Test Item Value Reference Range Interpretation [...] code = 1819) 20.0 % BASIC METABOLIC [id number] 08:03:00 Test Item Value Reference Range Interpretation [...] DIALYSIS PATIEN TS. LACTIC ACID, ARTERIAL, WHOLE [id number] 07:57:00 Test Item Value Reference Range Interpretation Comments LACTATE BLOOD ARTERIAL (2) 0.8 mmol/L 0.5-2.2 (BEAKER) (test code = 2874) Effective 09/07/2015: Units/Reference Range ChangeNew: 0.5-2.2 mmol/L Previous: 5-20 mg/[id number] 02:55:00 Test Item Value Reference Range Interpretation Comments PHOSPHORUS (BEAKER) (test code = 2.8 mg/dL 2.3-4.7 604) [id number] 02:55:00 Test Item Value Reference Range Interpretation Comments MAGNESIUM (BEAKER) (test code = 2.1 mg/dL 1.6-2.6 627) BASIC METABOLIC [id number] 02:55:00 Test Item Value Reference Range Interpretation Comments SODIUM (BEAKER) 139 meq/L 136-145 (test code = 381) POTASSIUM (BEAKER) 3.8 meq/L 3.5-5.1 (test code = 379) CHLORIDE (BEAKER) 106 meq/L 98-107 (test code = 382) CO2 (BEAKER) (test 26 meq/L code = 355) BLOOD UREA NITROGEN 18 [...] NOT APPLICABLE FOR DIALYSIS PATIEN TS. PROTHROMBIN [id number] 02:53:00 Test Item Value Reference Range Interpretation Comments PROTIME (BEAKER) (test code = 14.9 seconds 11.7-14.7 H 759) INR (BEAKER) (test code = 370) 1.2 <=5.9 RECOMMENDED COUMADIN/WARFARIN INR THERAPY RANGESSTANDARD DOSE: 2.0 - 3.0 Includes: PROPHYLAXIS forvenous thrombosis, systemic embolization; TREATMENT for venous thrombosis and/or pulmonary embolus.HIGH RISK: Target INR is 2.5-3.5 for patients with mechanical heart valves.[id number] 02:53:00 Test Item Value Reference Range Interpretation Comments PARTIAL THROMBOPLASTIN TIME 34.0 seconds 22.5-36.0 (BEAKER) (test code = 760) CBC W/PLT COUNT & AUTO [id number] 02:43:00 Test Item Value Reference Range Interpretation [...] PERCENT (BEAKER) (test code = 2801) PLATELET [id number] 02:35:00 Test Item Value Reference Range Interpretation Comments PLATELET COUNT (BEAKER) (test 167 K/CU MM 150-450 code = 756) GLUCOSE-STAT [id number] 02:32:00 Test Item Value Reference Range Interpretation Comments GLUCOSE RANDOM (BEAKER) (test code 112 mg/dL 70-110 H = 652) HGB/HCT (H&H) - STAT [id number] 02:32:00 Test Item Value Reference Range Interpretation Comments HEMOGLOBIN (BEAKER) (test code = 10.5 g/dL 13.0-16.8 L 410) HEMATOCRIT (BEAKER) (test code = 31.0 % 40.0-50.0 L 411) CALCIUM, [id number] 02:31:00 Test Item Value Reference Range Interpretation Comments CALCIUM IONIZED (BEAKER) (test 1.18 mmol/L 1.12-1.27 code = 698) PH, BLOOD (BEAKER) (test code = 7.38 1810) SODIUM NA-STAT [id number] 02:31:00 Test Item Value Reference Range Interpretation Comments SODIUM (BEAKER) (test code = 381) 137 meq/L 135-148 POTASSIUM-STAT [id number] 02:31:00 Test Item Value Reference Range Interpretation Comments POTASSIUM (BEAKER) (test code = 3.7 meq/L 3.6-5.5 379) POCT-GLUCOSE [id number] 00:40:00 Test Item Value Reference Range Interpretation Comments POC-GLUCOSE METER 129 mg/dL 70-110 H TESTED AT [place] [address] (BEAKER) (test code = [facility] 1538) [address] POCT-GLUCOSE [id number] 00:40:00 Test Item Value Reference Range Interpretation Comments POC-GLUCOSE METER 143 mg/dL 70-110 H TESTED AT [place] [address] ([facility]) (test code = [facility] 1538) [address] POCT-GLUCOSE [id number] 21:41:00 Test Item Value Reference Range Interpretation Comments POC-GLUCOSE METER 179 mg/dL 70-110 H TESTED AT [place] [address] ([facility]) (test code = [facility] 1538) [address] BLOOD GAS, [id number] 19:39:00 Test Item Value Reference Range Interpretation [...] (test code = 1819) 40.0 % GLUCOSE-STAT [id number] 19:39:00 Test Item Value Reference Range Interpretation Comments GLUCOSE RANDOM (BEAKER) (test code 160 mg/dL 70-110 H = 652) HGB/HCT (H&H) - STAT [id number] 19:39:00 Test Item Value Reference Range Interpretation Comments HEMOGLOBIN (BEAKER) (test code = 11.0 g/dL 13.0-16.8 L 410) HEMATOCRIT (BEAKER) (test code = 32.0 % 40.0-50.0 L 411) SODIUM NA-STAT [id number] 19:37:00 Test Item Value Reference Range Interpretation Comments SODIUM (BEAKER) (test code = 381) 137 meq/L 135-148 POTASSIUM-STAT [id number] 19:37:00 Test Item Value Reference Range Interpretation Comments POTASSIUM (BEAKER) (test code = 4.0 meq/L 3.6-5.5 379) BLOOD GAS, [id number] 18:02:00 Test Item Value Reference Range Interpretation [...] arterial line present.RAD, CHEST, 1 VIEW, NON [id number] 17:20:00 Reason for exam:->PostopShould this be performed at the bedside?->YesFINAL REPORT EXAM: Frontal chest radiograph HISTORY PROVIDED: Postop COMPARISON: 11/13/2017 IMPRESSION:The tip of an endotracheal tube terminates 3.8 cm above the alexia. A right IJ approach Chrisney-Jun catheter has been placed with its tip [...] MDReport Verified Date/Time: 11/14/2017 17:20:20 Reading Location: [facility] Reading Room C METABOLIC [id number] 16:02:00 Test Item Value Reference Range Interpretation [...] S NOT APPLICABLE FOR DIALYSIS PATIEN TS. [id number] 16:02:00 Test Item Value Reference Range Interpretation Comments PHOSPHORUS (BEAKER) (test code = 2.3 mg/dL 2.3-4.7 604) [id number] 16:02:00 Test Item Value Reference Range Interpretation Comments MAGNESIUM (BEAKER) (test code = 2.6 mg/dL 1.6-2.6 627) LACTIC ACID, ARTERIAL, WHOLE [id number] 15:58:00 Test Item Value Reference Range Interpretation Comments LACTATE BLOOD 0.9 mmol/L 0.5-2.2 Specimen sligh tly ARTERIAL (2) (BEAKER) hemoly zed (test code = 2874) Effective 09/07/2015: Units/Reference Range ChangeNew: 0.5-2.2 mmol/L Previous: 5-20 mg/dLCBC W/PLT COUNT & AUTO [id number] 15:47:00 Test Item Value Reference Range Interpretation [...] (BEAKER) (test code = 2801) OXYGEN SATURATION, [id number] 15:37:00 Test Item Value Reference Range Interpretation Comments O2 SATURATION (MEASURED) (BEAKER) 55.5 % (test code = 1455) CALCIUM, [id number] 15:37:00 Test Item Value Reference Range Interpretation Comments CALCIUM IONIZED (BEAKER) (test 1.12 mmol/L 1.12-1.27 code = 698) PH, BLOOD (BEAKER) (test code = 7.41 1810) SODIUM NA-STAT [id number] 15:37:00 Test Item Value Reference Range Interpretation Comments SODIUM (BEAKER) (test code = 381) 138 meq/L 135-148 POTASSIUM-STAT [id number] 15:37:00 Test Item Value Reference Range Interpretation Comments POTASSIUM (BEAKER) (test code = 3.6 meq/L 3.6-5.5 379) BLOOD GAS, [id number] 15:37:00 Test Item Value Reference Range Interpretation [...] (test code = 1819) 60.0 % GLUCOSE-STAT [id number] 15:37:00 Test Item Value Reference Range Interpretation Comments GLUCOSE RANDOM (BEAKER) (test code 162 mg/dL 70-110 H = 652) HEMOGLOBIN-STAT [id number] 15:37:00 Test Item Value Reference Range Interpretation Comments HEMOGLOBIN (BEAKER) (test code = 11.2 g/dL 13.0-16.8 L 410) HGB/HCT (H&H) - STAT [id number] 15:37:00 Test Item Value Reference Range Interpretation Comments HEMOGLOBIN (BEAKER) (test code = 11.2 GM/DL 13.0-16.8 L 410) HEMATOCRIT (BEAKER) (test code = 33.0 % 40.0-50.0 L 411) [id number] 14:04:00 Test Item Value Reference Range Interpretation Comments ACTIVATED CLOTTING TIME 114 sec TEST ED AT [place] [address] (BEAKER) (test code = [place] [address]) [address] [id number] 14:04:00 Test Item Value Reference Range Interpretation Comments ACTIVATED CLOTTING TIME 472 sec TEST ED AT [place] [address] (BEAKER) (test code = [place] [address]) [address] [id number] 14:04:00 Test Item Value Reference Range Interpretation Comments ACTIVATED CLOTTING TIME 505 sec TEST ED AT [place] [address] (BEAKER) (test code = [place] [address]) [address] [id number] 14:04:00 Test Item Value Reference Range Interpretation Comments ACTIVATED CLOTTING TIME 543 sec TEST ED AT [place] [address] (BEAKER) (test code = [place] [address]) [address] CALCIUM, [id number] 13:58:00 Test Item Value Reference Range Interpretation Comments CALCIUM IONIZED (BEAKER) (test 1.11 mmol/L 1.12-1.27 L code = 698) PH, BLOOD (BEAKER) (test code = 7.36 1810) BLOOD GAS, [id number] 13:56:00 Test Item Value Reference Range Interpretation [...] (test code = 1819) 100.0 % GLUCOSE-STAT [id number] 13:56:00 Test Item Value Reference Range Interpretation Comments GLUCOSE RANDOM (BEAKER) (test code 167 mg/dL 70-110 H = 652) HGB/HCT (H&H) - STAT [id number] 13:56:00 Test Item Value Reference Range Interpretation Comments HEMOGLOBIN (BEAKER) (test code = 10.8 g/dL 13.0-16.8 L 410) HEMATOCRIT (BEAKER) (test code = 32.0 % 40.0-50.0 L 411) SODIUM NA-STAT [id number] 13:55:00 Test Item Value Reference Range Interpretation Comments SODIUM (BEAKER) (test code = 381) 136 meq/L 135-148 POTASSIUM-STAT [id number] 13:55:00 Test Item Value Reference Range Interpretation Comments POTASSIUM (BEAKER) (test code = 3.8 meq/L 3.6-5.5 379) BLOOD GAS, [id number] 12:54:00 Test Item Value Reference Range Interpretation [...] code = 1819) 65.0 % SODIUM NA-STAT [id number] 12:54:00 Test Item Value Reference Range Interpretation Comments SODIUM (BEAKER) (test code = 381) 134 meq/L 135-148 L GLUCOSE-STAT [id number] 12:54:00 Test Item Value Reference Range Interpretation Comments GLUCOSE RANDOM (BEAKER) (test code 158 mg/dL 70-110 H = 652) HGB/HCT (H&H) - STAT [id number] 12:54:00 Test Item Value Reference Range Interpretation Comments HEMOGLOBIN (BEAKER) (test code = 8.8 g/dL 13.0-16.8 L 410) HEMATOCRIT (BEAKER) (test code = 26.0 % 40.0-50.0 L 411) POTASSIUM-STAT [id number] 12:53:00 Test Item Value Reference Range Interpretation Comments POTASSIUM (BEAKER) (test code = 4.1 meq/L 3.6-5.5 379) BLOOD GAS, [id number] 12:20:00 Test Item Value Reference Range Interpretation [...] code = 1819) 60.0 % SODIUM NA-STAT [id number] 12:20:00 Test Item Value Reference Range Interpretation Comments SODIUM (BEAKER) (test code = 381) 134 meq/L 135-148 L GLUCOSE-STAT [id number] 12:20:00 Test Item Value Reference Range Interpretation Comments GLUCOSE RANDOM (BEAKER) (test code 187 mg/dL 70-110 H = 652) HGB/HCT (H&H) - STAT [id number] 12:20:00 Test Item Value Reference Range Interpretation Comments HEMOGLOBIN (BEAKER) (test code = 10.0 g/dL 13.0-16.8 L 410) HEMATOCRIT (BEAKER) (test code = 29.0 % 40.0-50.0 L 411) BLOOD GAS, [id number] 12:20:00 Test Item Value Reference Range Interpretation [...] (test code = 1819) 60.0 % POTASSIUM-STAT [id number] 12:18:00 Test Item Value Reference Range Interpretation Comments POTASSIUM (BEAKER) (test code = 3.5 meq/L 3.6-5.5 L 379) U/S, RENAL WITH [id number] 08:35:00Reason for exam:->INCLUDE DOPPLERS AND PVR- for [...] MDReport Verified Date/Time: 11/14/2017 08:35:40 Reading Location: [facility] P006J Ultrasound Reading Room POCT-GLUCOSE [id number] 07:34:00 Test Item Value Reference Range Interpretation Comments POC-GLUCOSE METER 190 mg/dL 70-110 H TESTED AT [facility] 6720 (BEAKER) (test code = [place] 1538) [address] [id number] 05:19:00 Test Item Value Reference Range Interpretation Comments MAGNESIUM (BEAKER) (test code = 2.0 mg/dL 1.6-2.6 627) BASIC METABOLIC [id number] 05:19:00 Test Item Value Reference Range Interpretation [...] PATIEN TS. CBC W/PLT COUNT & AUTO [id number] 05:00:00 Test Item Value Reference Range Interpretation [...] 0-1 PERCENT (BEAKER) (test code = 2801) [id number] 01:56:00 Test Item Value Reference Range Interpretation Comments PARTIAL THROMBOPLASTIN TIME 69.0 seconds 22.5-36.0 H (BEAKER) (test code = 760) POCT-GLUCOSE [id number] 22:07:00 Test Item Value Reference Range Interpretation Comments POC-GLUCOSE METER 185 mg/dL 70-110 H TESTED AT [facility] 6720 (BEAKER) (test code = [place] 1538) [address] [id number] 18:43:00 Test Item Value Reference Range Interpretation Comments PARTIAL THROMBOPLASTIN TIME 45.2 seconds 22.5-36.0 H (BEAKER) (test code = 760) [id number] 16:12:00 Test Item Value Reference Range Interpretation Comments THYROID STIMULATING HORMONE 0.53 uIU/mL 0.35-4.94 (BEAKER) (test code = 772) RAD, CHEST, 1 VIEW, NON [id number] 15:33:00Reason for exam:->preopShould this be performed at the bedside?->YesFINAL REPORT EXAM: Frontal chest radiograph HISTORY PROVIDED: Preop COMPARISON: 11/12/2017 IMPRESSION:No focal consolidation, pneumothorax, or significant pleural fluid. The cardiomediastinal silhouette is within normal limits. No acute osseous abnormality. Degenerative changes of the spine are present. Signed: Clayton Banegas [facility] Verified Date/Time: 11/13/2017 15:33:28Reading Location: [facility] Mammo Reading Room Electronically signed by: CLAYTON BANEGAS on 11/03 03:33 [id number] 15:06:00 Test Item Value Reference Range Interpretation Comments PARTIAL THROMBOPLASTIN TIME 51.6 seconds 22.5-36.0 H (BEAKER) (test code = 760) PROTHROMBIN [id number] 15:05:00 Test Item Value Reference Range Interpretation [...] INTERPRETATION (BEAKER) arachidonic acid (test code = 998352) suggests aspirin-like effect. [id number] Deven Mei MD (BEAKER) (test code = (electronic 2621) signature) PLATELET COUNT AGG 243 K/CU MM 150-450 (BEAKER) (test code = 2656) Platelet aggregation results may be falsely low with platelet counts<100,000/CU MM.CREATININE, RANDOM [id number] 06:28:00 Test Item Value Reference Range Interpretation Comments CREATININE URINE (BEAKER) (test 114.6 mg/dL code = 375) Reference Range: No NormalsPROTEIN, RANDOM [id number] 06:28:00 Test Item Value Reference Range Interpretation Comments PROTEIN, URINE (BEAKER) (test code = 30 mg/dL 0-14 H 1569) PH, [id number] 05:47:00 Test Item Value Reference Range Interpretation Comments PH VENOUS (BEAKER) (test code = 701) 7.40 7.32-7.42 VITAMIN D, [id number] 04:52:00 Test Item Value Reference Range Interpretation Comments VITAMIN D 25-OH (BEAKER) (test 36.5 ng/mL 6.6-49.9 code = 2764) Effective 02/13/2017: Reference Range ChangeNew: 6.6-49.9 ng/mL Previous: 13.0-47.8 ng/mLRecommended Vitamin D Target Range: 30.0-40.0 ng/mLPTH, INTACT 2017-11-13 04:25:00 Test Item Value Reference Range Interpretation Comments PARATHYROID HORMONE INTACT 91.7 pg/mL 8.5-72.5 H (BEAKER) (test code = 577) [id number] 04:21:00 Test Item Value Reference Range Interpretation Comments PARTIAL THROMBOPLASTIN TIME 53.6 seconds 22.5-36.0 H (BEAKER) (test code = 760) URIC [id number] 04:20:00 Test Item Value Reference Range Interpretation Comments URIC ACID (BEAKER) (test code = 9.0 mg/dL 2.6-7.2 H 773) [id number] 04:20:00 Test Item Value Reference Range Interpretation Comments MAGNESIUM (BEAKER) (test code = 2.0 mg/dL 1.6-2.6 627) [id number] 04:20:00 Test Item Value Reference Range Interpretation Comments PHOSPHORUS (BEAKER) (test code = 3.1 mg/dL 2.3-4.7 604) BASIC METABOLIC [id number] 04:20:00 Test Item Value Reference Range Interpretation [...] PATIEN TS. CBC W/PLT COUNT & AUTO [id number] 04:06:00 Test Item Value Reference Range Interpretation [...] 417) IMMATURE GRANULOCYTES-RELATIVE 1 % 0-1 PERCENT ([facility]) (test code = 2801) [id number] 22:34:00 Test Item Value Reference Range Interpretation Comments PARTIAL THROMBOPLASTIN TIME 49.5 seconds 22.5-36.0 H ([facility]) (test code = 760) POCT-GLUCOSE [id number] 21:55:00 Test Item Value Reference Range Interpretation Comments POC-GLUCOSE METER 179 mg/dL 70-110 H TESTED AT [facility] 67 ([facility]) (test code = [place] [facility] 1538) [address] RAD, CHEST, 1 VIEW, NON [id number] 17:03:00Reason for exam:->sobShould this be performed at the bedside?->YesFINAL REPORT CHEST AP PORTABLE History provided: Shortness of breath Comparison studies: None Heart size normal. Lungs grossly clear and vascularity normal. IMPRESSION: Grossly clear chest. Signed: [facility] Verified Date/Time: 11/12/2017 17:03:31 Reading Location: [address] Radiology Reading Room [id number] 15:41:00 Test Item Value Reference Range Interpretation Comments PARTIAL THROMBOPLASTIN TIME 41.3 seconds 22.5-36.0 H ([facility]) (test code = 760) POCT-GLUCOSE [id number] 11:50:00 Test Item Value Reference Range Interpretation Comments POC-GLUCOSE METER 218 mg/dL 70-110 H TESTED AT [facility] 6720 ([facility]) (test code = [place] [facility] 1538) [address] PLATELET AGGREGATION: FUNCTION [id number] 10:14:00 Test Item Value Reference Range Interpretation Comments WEAK ADP 82 % 60-91 RESULT([facility]) (test code = 2135) PLATELET FUNCTION 60-100% indicates This is a corrected SCREEN INTERP normal platelet result. Pre vious ([facility]) (test function result was 50 -59% code = 2173) indicates mild platelet dysfunction on 11/11/2017 at 192 1 CDT [facility]OLOGIST- Deven Mei MD 4474 (BEAKER) (electronic (test code = signature) 4170) PLATELET COUNT 283 K/CU MM 150-450 AGG (BEAKER) (test code = 6136) TROPONIN [id number] 08:02:00 Test Item Value Reference Range Interpretation [...] failure, acidosis, acute neurological disease, and persistent tachyarrhythmia.[id number] 07:55:00 Test Item Value Reference Range Interpretation Comments PARTIAL THROMBOPLASTIN TIME 42.7 seconds 22.5-36.0 H (BEAKER) (test code = 760) [id number] 07:55:00 Test Item Value Reference Range Interpretation Comments MAGNESIUM (BEAKER) (test code = 2.3 mg/dL 1.6-2.6 627) BASIC METABOLIC [id number] 07:55:00 Test Item Value Reference Range Interpretation [...] PATIEN TS. CBC W/PLT COUNT & AUTO [id number] 07:49:00 Test Item Value Reference Range Interpretation [...] PERCENT (BEAKER) (test code = 2801) POCT-GLUCOSE [id number] 07:33:00 Test Item Value Reference Range Interpretation Comments POC-GLUCOSE METER 159 mg/dL 70-110 H TESTED AT [facility] 6720 (BEAKER) (test code = [place] 1538) [address] [id number] 00:57:00 Test Item Value Reference Range Interpretation Comments PARTIAL THROMBOPLASTIN TIME 47.6 seconds 22.5-36.0 H (BEAKER) (test code = 760) [id number] 00:40:00 Test Item Value Reference Range Interpretation Comments MAGNESIUM (BEAKER) 2.3 mg/dL 1.6-2.6 Specimen slightly (test code = 627) hemolyzed BASIC METABOLIC [id number] 00:40:00 Test Item Value Reference Range Interpretation [...] NOT APPLICABLE FOR DIALYSIS PATIEN TS. POCT-GLUCOSE [id number] 21:57:00 Test Item Value Reference Range Interpretation Comments POC-GLUCOSE METER 162 mg/dL 70-110 H TESTED AT [facility] 6720 (BEAKER) (test code = [place] 1538) [address] HEMOGLOBIN [id number] 19:53:00 Test Item Value Reference Range Interpretation Comments HEMOGLOBIN A1C (BEAKER) (test code = 7.0 % 4.3-6.1 H 368) LIPID [id number] 18:10:00 Test Item Value Reference Range Interpretation [...] 130-159 High 160-189 Very High >=190BASIC METABOLIC [id number] 18:10:00 Test Item Value Reference Range Interpretation [...] APPLICABLE FOR DIALYSIS PATIEN TS. HEPATIC FUNCTION [id number] 18:10:00 Test Item Value Reference Range Interpretation [...] (test code = 24 U/L 6-55 347) [id number] 17:56:00 Test Item Value Reference Range Interpretation [...] PERCENT (BEAKER) (test code = 2801) POCT-GLUCOSE [id number] 16:49:00 Test Item Value Reference Range Interpretation Comments POC-GLUCOSE METER 128 mg/dL 70-110 H TESTED AT [facility] 6720 (BEAKER) (test code = [place] 1538) [id number]
[2021-01-13] MEDS ORDERED: IPRATROPIUM BROM 0.5MG/2.5ML ONE ×5 (01:42→21:10)
[2021-01-13] MEDS ORDERED: LEVALBUTEROL 1.25 MG/3 ML NEB ONE ×3 (01:42→21:10)
[2021-01-13 01:53] LABS: Arterial Blood Carboxyhemoglob 2.6 % (0-1.5); Blood O2 Saturation 96.4 % (92-98.5)
[2021-01-13 01:54] LABS: Absolute Lymphocytes (CBC) 1.8 K/uL (0.7-4.9); Hematocrit 38.3 % (39.6-49.0); MPV 9.2 fL (7.6-11.3); RBC Red Blood Cell Count 4.39 M/uL (4.33-5.43)
[2021-01-13 01:55] LABS: Protime INR 1.23
[2021-01-13 02:09] LABS: ALT/SGPT 20 U/L (12-78); AST/SGOT 15 U/L (15-37); Albumin 3.6 g/dL (3.4-5.0); Alkaline Phosphatase 90 U/L (45-117); BUN Blood Urea Nitrogen 26 mg/dL (7-18); Bicarbonate 28 mmol/L (21-32); Bilirubin Direct 0.1 mg/dL (0-0.2); Bilirubin Total 0.4 mg/dL (0.2-1.0); Glucose Level 207 mg/dL (74-106); NT PRO-BNP 5231 pg/mL (<125); Potassium 3.9 mmol/L (3.5-5.1); Protein, Total 7.5 g/dL (6.4-8.2); Sodium Level 141 mmol/L (136-145); Troponin (Emerg Dept Use Only) < 0.02 ng/mL (0.0-0.045)
--- NOTE | 2021-01-13 02:15 | ER ---
Nurse's Notes [facility] Name: Ludwin Hsu Age: 70 yrs Sex: Male : 1950 Arrival Date: 01/13/2021 Time: 01:13 Bed 7 Private MD: Diagnosis: Chronic atrial fibrillation-with RVR;Hypoxemia;Systolic (congestive) heart failure;COPD/ Chronic obstructive pulmonary disease, unspecified Presentation: 01/13 01:20 Chief complaint: EMS states: they were toned out for report of pt with respiratory bb distress pt room air sats on arrival were in the 80s pt was placed on Cpap and sats went into the 90s. Coronavirus screen: difficulty breathing, Client presents with at least one sign or symptom that may indicate coronavirus-19. Standard/surgical mask placed on the client. Ebola Screen: No symptoms or risks identified at this time. Initial Sepsis Screen: Does the patient meet any 2 criteria? RR > 20 per min. HR > 90 bpm. Does the patient have a suspected source of infection? Yes: Productive cough/pneumonia. Risk Assessment: Do you want to hurt yourself or someone else? Patient reports no desire to harm self or others. Onset of symptoms was January 13, 2021. 01:20 Method Of Arrival: EMS: [facility] bb 01:20 Acuity: NGUYEN 1 bb Historical: - Allergies: 01:42 NKA; bb - PMHx: 01:42 arteriosclerosis; CHF; chronic back pain; COPD; Diabetes - NIDDM; Hypertension; kidney bb disease; malignant neoplasm of epidimyis; Myocardial infarction; Pancreatitis; PTSD; tinnitus; - Immunization history:: Adult Immunizations up to date, Client reports receiving the 2nd dose of the Covid vaccine. - Social history:: Smoking status: Patient reports the use of cigarette tobacco products, smokes one-half pack cigarettes per day. - Family history:: not pertinent. Screenin:52 Abuse screen: Denies threats or abuse. Nutritional screening: No deficits noted. ea Tuberculosis screening: No symptoms or risk factors identified. Fall Risk IV access (20 points). Assessment: 02:40 General: Appears in no apparent distress. Behavior is calm, cooperative, appropriate ea for age. Pain: Denies pain. Neuro: Level of Consciousness is awake, alert, obeys commands, Oriented to person, place, time. Respiratory: Airway is patent Respiratory effort is labored, Respiratory pattern is tachypnea. Derm: Skin is diaphoretic, Skin is pale, Skin temperature is cool. 03:30 Reassessment: Patient and/or family updated on plan of care and expected duration. Pain ea level reassessed. Patient is alert, oriented x 3, equal unlabored respirations, skin warm/dry/pink. Pt remains on BiPAP. 04:40 Reassessment: Patient and/or family updated on plan of care and expected duration. Pain ea level reassessed. Patient is alert, oriented x 3, equal unlabored respirations, skin warm/dry/pink. Remains on BiPAP. 05:50 Reassessment: Patient and/or family updated on plan of care and expected duration. Pain ea level reassessed. Patient is alert, oriented x 3, equal unlabored respirations, skin warm/dry/pink. Remains on BiPAP. Vital Signs: 01:20 BP 124 / 68; Pulse 124; Resp 36 S; Temp 95(A); Pulse Ox 100% on BiPAP; Weight 117.93 kg bb (R); Height 6 ft. 0 in. (182.88 cm) (R); 06:06 BP 106 / 59; Pulse 88; Resp 20; Temp 97.8; Pulse Ox 99% on BiPAP; ea 01:20 Body Mass Index 35.26 (117.93 kg, 182.88 cm) bb ED Course: 01:13 Patient arrived in ED. mw2 01:14 Jose E Suarez MD is Attending Physician. sandy 01:35 XRAY Chest (1 view) In Process Unspecified. EDMS 01:42 Triage completed. bb 01:42 Arm band placed on Patient placed in an exam room, on a stretcher, on oxygen, on bb monitor tech, on pulse oximetry. EKG completed in triage. Results shown to . 01:48 Inserted saline lock: 20 gauge in left forearm, using aseptic technique. Blood ea collected. 01:52 Patient has correct armband on for positive identification. Bed in low position. Call ea light in reach. 02:02 Corazon Weaver RN is Primary Nurse. ea 02:10 Topher Yuen MD is Hospitalizing Provider. sandy 02:19 Notified ED physician of a critical lab result(s). Lactic acid of 2.2 Dr Erick zafar notifed. 06:02 No provider procedures requiring assistance completed. Patient admitted, IV remains in ea place. 08:10 Primary Nurse role handed off by Corazon Weaver RN eb 16:11 Theo Carlos, RN is Primary Nurse. [email or web address] Administered Medications: 02:09 Not Given (Duplicate Order): Lasix (furosemide) 40 mg IVP once; give over 2 minutes sandy 02:09 Not Given (Duplicate Order): Lopressor (metoprolol TARTRATE) 50 mg PO once sandy 02:18 Drug: AtroVENT (ipratropium) Aerosol 0.5 mg Route: Inhalation; ea 02:19 Drug: Xopenex (levalbuterol) 1.25 mg Route: Inhalation; ea 02:19 Drug: SOLU-Medrol (methylPrednisoLONE) 125 mg Route: IVP; Site: left forearm; ea 06:08 Follow up: Response: No adverse reaction ea 02:20 Drug: Pepcid (famotidine) 20 mg Route: IVP; Site: left forearm; ea 06:08 Follow up: Response: No adverse reaction ea 02:20 Drug: Rocephin (cefTRIAXone) 1 grams Route: IV; Rate: per protocol; Site: left forearm; ea 02:50 Follow up: Response: No adverse reaction; IV Status: Completed infusion ea 06:08 Follow up: Response: No adverse reaction; IV Intake: 10ml ea 02:22 Drug: Digoxin 0.5 mg Route: IVP; Site: left forearm; ea 06:08 Follow up: Response: No adverse reaction ea Intake: 06:08 IV: 10ml; Total: 10ml. ea Outcome: 02:15 Decision to Hospitalize by Provider. sandy 06:02 Admitted to ER Hold. Please see [facility] for further documentation. ea 06:02 Condition: stable 06:02 Instructed on the need for admit, Demonstrated understanding of instructions. 21:58 Patient left the ED. ea Signatures: Dispatcher [employer] EDMS Jose E Suarez MD MD cha Ballard, Brenda, RN RN Theo Cole RN RN [email or web address] Corazon Weaver RN RN ea [place], MyKena 2 Raine Hyde Corrections: (The following items were deleted from the chart) 06:07 06:06 BP 106 / 59; Pulse 88bpm; Resp 20bpm; Pulse Ox 99% BiPAP; ea ea
--- NOTE | 2021-01-13 02:16 | EDPHYS ---
Physician Documentation [facility] Name: Ludwin Hsu Age: 70 yrs Sex: Male : 1950 Arrival Date: 01/13/2021 Time: 01:13 Bed 7 Private MD: ED Physician Jose E Suarez HPI: 01/13 01:21 This 70 yrs old Male presents to ER via Unassigned with complaints of sob, sandy chf, copd. 01:21 The patient has shortness of breath at rest, with light activity. Onset: The sandy symptoms/episode began/occurred just prior to arrival, this morning. Duration: The symptoms are continuous, and are steadily getting worse. The patient's shortness of breath is aggravated by coughing, light activity, supine position. The patient or guardian reports cough, difficulty breathing, flu symptoms, myalgias. Modifying factors: The symptoms are alleviated by elevating head, remaining still, the symptoms are aggravated by activity, lying flat. Associated signs and symptoms: Pertinent positives: non-productive cough, dizziness. Severity of symptoms: At their worst the symptoms were moderate in the emergency department the symptoms are unchanged. Historical: - Allergies: 01:42 NKA; bb - PMHx: 01:42 arteriosclerosis; CHF; chronic back pain; COPD; Diabetes - NIDDM; Hypertension; kidney bb disease; malignant neoplasm of epidimyis; Myocardial infarction; Pancreatitis; PTSD; tinnitus; - Immunization history:: Adult Immunizations up to date, Client reports receiving the 2nd dose of the Covid vaccine. - Social history:: Smoking status: Patient reports the use of cigarette tobacco products, smokes one-half pack cigarettes per day. - Family history:: not pertinent. ROS: 01:27 Constitutional: Negative for fever, chills, and weight loss, Eyes: Negative for injury, sandy pain, redness, and discharge, ENT: Negative for injury, pain, and discharge, Neck: Negative for injury, pain, and swelling, Abdomen/GI: Negative for abdominal pain, nausea, vomiting, diarrhea, and constipation, Back: Negative for injury and pain, : Negative for injury, bleeding, discharge, and swelling, MS/Extremity: Negative for injury and deformity, Skin: Negative for injury, rash, and discoloration, Neuro: Negative for headache, weakness, numbness, tingling, and seizure. 01:27 Cardiovascular: Positive for chest pain, with cough, orthopnea. 01:27 Respiratory: Positive for cough, orthopnea, shortness of breath. Exam: :27 Constitutional: This is a well developed, well nourished patient who is awake, alert, sandy and in no acute distress. Head/Face: Normocephalic, atraumatic. Eyes: Pupils equal round and reactive to light, extra-ocular motions intact. Lids and lashes normal. Conjunctiva and sclera are non-icteric and not injected. Cornea within normal limits. Periorbital areas with no swelling, redness, or edema. ENT: Nares patent. No nasal discharge, no septal abnormalities noted. Tympanic membranes are normal and external auditory canals are clear. Oropharynx with no redness, swelling, or masses, exudates, or evidence of obstruction, uvula midline. Mucous membranes moist. Neck: Trachea midline, no thyromegaly or masses palpated, and no cervical lymphadenopathy. Supple, full range of motion without nuchal rigidity, or vertebral point tenderness. No Meningismus. Chest/axilla: Normal chest wall appearance and motion. Nontender with no deformity. No lesions are appreciated. Cardiovascular: Regular rate and rhythm with a normal S1 and S2. No gallops, murmurs, or rubs. Normal PMI, no JVD. No pulse deficits. Respiratory: Lungs have equal breath sounds bilaterally, clear to auscultation and percussion. No rales, rhonchi or wheezes noted. No increased work of breathing, no retractions or nasal flaring. Back: No spinal tenderness. No costovertebral tenderness. Full range of motion. Male : Normal genitalia with no discharge or lesions. Skin: Warm, dry with normal turgor. Normal color with no rashes, no lesions, and no evidence of cellulitis. MS/ Extremity: Pulses equal, no cyanosis. Neurovascular intact. Full, normal range of motion. Neuro: Awake and alert, GCS 15, oriented to person, place, time, and situation. Cranial nerves II-XII grossly intact. Motor strength 5/5 in all extremities. Sensory grossly intact. Cerebellar exam normal. Normal gait. Psych: Awake, alert, with orientation to person, place and time. Behavior, mood, and affect are within normal limits. 01:27 ECG was reviewed by the Attending Physician. 01:27 Respiratory: mild respiratory distress is noted, Respirations: labored breathing, that is mild, Breath sounds: bronchial sounds, that are moderate, Respiratory rate: 22 01:27 Abdomen/GI: Exam negative for Vital Signs: 01:20 BP 124 / 68; Pulse 124; Resp 36 S; Temp 95(A); Pulse Ox 100% on BiPAP; Weight 117.93 kg bb (R); Height 6 ft. 0 in. (182.88 cm) (R); 06:06 BP 106 / 59; Pulse 88; Resp 20; Temp 97.8; Pulse Ox 99% on BiPAP; ea 01:20 Body Mass Index 35.26 (117.93 kg, 182.88 cm) bb MDM: 01:14 Patient medically screened. sandy 01:31 Differential diagnosis: Anemia Anxiety Reaction asthma, Bronchitis CHF exacerbation, sandy Chronic Obstructive Pulmonary Disease bronchitis, flu, pneumonia, Pneumothorax reactive airway disease, Unstable Angina. Antibiotic administration: rocephin. The patient's Wells Deep Vein Thrombosis Score was calculated as follows: Heart Rate >100 BPM (1.5 Pts) Total Score: 0-2 Pts- Low Risk. The patient's pulmonary embolism risk score was calculated as follows: Total Score: 0-2 points. This patient was found to be at low risk for a pulmonary embolism by using the Well's assessment criteria. Immunization status: Pneumococcal vaccine: Influenza vaccine: Data reviewed: vital signs, nurses notes, EMS record, lab test result(s), EKG, radiologic studies, plain films. Data interpreted: nuclear monitoring technician: rate is 127 beats/min, rhythm is atrial fibrillation, Pulse oximetry: on room air is 85 %. Test interpretation: by ED physician or midlevel provider: ECG, plain radiologic studies. Counseling: I had a detailed discussion with the patient and/or guardian regarding: the historical points, exam findings, and any diagnostic results supporting the discharge/admit diagnosis, lab results, radiology results, the need for outpatient follow up. 01/13 01:20 Order name: Basic Metabolic Panel [facility] 01/13 01:20 Order name: CBC with Diff [facility] 01/13 01:20 Order name: LFT's [facility] 01/13 01:20 Order name: Magnesium [facility] 01/13 01:20 Order name: NT PRO-BNP [facility] 01/13 01:20 Order name: PT-INR [facility] 01/13 01:20 Order name: Troponin (emerg Dept Use Only) [facility] 01/13 01:20 Order name: Blood Culture Adult (2) [facility] 01/13 01:20 Order name: Lactate [facility] 01/13 01:20 Order name: COVID-19 : Document "Date of Symptom Onset" if Symptomatic. [facility] 01/13 01:52 Order name: ABG Arterial Blood Gas [facility] 01/13 05:57 Order name: Lactate Sepsis 2 HR Follow-up [facility] 01/13 06:13 Order name: Comprehensive Metabolic Panel [facility] 01/13 06:13 Order name: Phosphorus [facility] 01/13 01:20 Order name: XRAY Chest (1 view) [facility] 01/13 01:20 Order name: EKG; Complete Time: 01:21 [facility] 01/13 01:20 Order name: Cardiac monitoring; Complete Time: 01:38 [facility] 01/13 06:13 Order name: Magnesium [facility] 01/13 09:55 Order name: Glucose, Ancillary Testing [facility] 01/13 10:01 Order name: SARS-COV-2 RT PCR [facility] 01/13 11:38 Order name: Glucose, Ancillary Testing [facility] 01/13 16:58 Order name: Glucose, Ancillary Testing [facility] 01/13 01:20 Order name: EKG - Nurse/Tech; Complete Time: 01:38 [facility] 01/13 01:20 Order name: IV Saline Lock; Complete Time: 01:38 [facility] 01/13 01:20 Order name: Labs collected and sent; Complete Time: 01:38 [facility] 01/13 01:20 Order name: O2 Per Protocol; Complete Time: 01:38 [facility] 01/13 01:20 Order name: O2 Sat Monitoring; Complete Time: 01:38 [facility] EC:27 Rate is 157 beats/min. Rhythm is irregularly irregular. QRS [place] is Normal. MA interval sandy is normal. QRS interval is normal. QT interval is normal. No Q waves. T waves are Normal. No ST changes noted. Clinical impression: Atrial Fibrillation. Interpreted by me. Reviewed by me. Administered Medications: 02:09 Not Given (Duplicate Order): Lasix (furosemide) 40 mg IVP once; give over 2 minutes [facility] 02:09 Not Given (Duplicate Order): Lopressor (metoprolol TARTRATE) 50 mg PO once [facility] 02:18 Drug: AtroVENT (ipratropium) Aerosol 0.5 mg Route: Inhalation; ea 02:19 Drug: Xopenex (levalbuterol) 1.25 mg Route: Inhalation; ea 02:19 Drug: SOLU-Medrol (methylPrednisoLONE) 125 mg Route: IVP; Site: left forearm; ea 06:08 Follow up: Response: No adverse reaction ea 02:20 Drug: Pepcid (famotidine) 20 mg Route: IVP; Site: left forearm; ea 06:08 Follow up: Response: No adverse reaction ea 02:20 Drug: Rocephin (cefTRIAXone) 1 grams Route: IV; Rate: per protocol; Site: left forearm; ea 02:50 Follow up: Response: No adverse reaction; IV Status: Completed infusion ea 06:08 Follow up: Response: No adverse reaction; IV Intake: 10ml ea 02:22 Drug: Digoxin 0.5 mg Route: IVP; Site: left forearm; ea 06:08 Follow up: Response: No adverse reaction ea Disposition Summary: 01/13/21 02:15 Hospitalization Ordered Hospitalization Status: Inpatient Admission sandy Provider: Topher Yuen sandy Condition: Fair sandy Problem: new sandy Symptoms: have improved sandy Bed/Room Type: Standard sandy Location: Telemetry/MedSurg (Inpatient)(01/13/21 20:54) Room Assignment: [facility](01/13/21 20:54) Diagnosis - Chronic atrial fibrillation - with RVR sandy - Hypoxemia sandy - Systolic (congestive) heart failure sandy - COPD/ Chronic obstructive pulmonary disease, unspecified sandy Forms: - Medication Reconciliation Form sandy - SBAR form sandy Signatures: Dispatcher [employer] EDTX Johanna Ace RN RN mw Anderson, Corey, MD MD cha Ballard, Brenda RN RN Amirah Parker RN RN tl1 Corazon Weaver RN RN ea Corrections: (The following items were deleted from the chart) 04:21 02:15 Telemetry/MedSurg (Inpatient) sandy tl1 04:21 02:15 sandy tl1 20:54 04:21 [facility] ER HOLD tl1 mw 20:54 04:21 ERHOLD- tl1 mw
[2021-01-13] MEDS ORDERED: DIGOXIN 0.25 MG/ML AMP ONE (02:19)
[2021-01-13] MEDS ORDERED: METHYLPREDNISOLONE 125 MG INJ ONE (02:19)
[2021-01-13] MEDS ORDERED: METOPROLOL TAR 50 MG TAB ONE (02:19)
[2021-01-13] MEDS ORDERED: FUROSEMIDE 40 MG/4 ML VIAL ONE (02:19)
[2021-01-13] MEDS ORDERED: CEFTRIAXONE/SWI 1gm 1 GM/10 ML SYR ONE (02:20)
[2021-01-13] MEDS ORDERED: FAMOTIDINE 20 MG/2 ML VIAL IV ONE (02:20)
--- NOTE | 2021-01-13 03:28 | P.HP ---
Certification for Inpatient Patient admitted to: Inpatient With expected LOS: >2 Midnights Patient will require the following post-hospital care: None Practitioner: I am a practitioner with admitting privileges, knowledge of patient current condition, hospital course, and medical plan of care. Services: Services provided to patient in accordance with Admission requirements found in Title 42 Section 412.3 of the Code of Federal Regulations Patient History Date of Service: 01/13/21 Reason for admission: respiratory distress History of Present Illness: Mr. Hsu is a 70 yo M with CHF, COPD, DM, HTN, CAD s/p CABG, afib on xarelto who presents with SOB that woke him up this evening. Denies productive cough, sputum production, wheezing and edema. WBC 12.6, BUN 26, Cr 1.56, GFR 44, Glu 207, Lactate 2.2, BNP 5231. Stable on BiPAP. Symptomatic improvement with breathing treatments and steroids in the ED. Episode of afib with RVR upon arrival which improved with digoxin. Allergies No Known Allergies Allergy (Verified 08/28/20 15:19) Home Medications: Gabapentin [Neurontin*] 3 cap PO TID 12/02/16 Aspirin 81 mg PO DAILY 11/10/17 carvediloL [Coreg*] 25 mg PO BID 11/10/17 glipiZIDE [Glucotrol] 10 mg PO DAILY 11/10/17 Metformin ER [Glucophage ER*] 1,000 mg PO BID 02/17/18 Amiodarone HCl 100 mg PO DAILY 08/28/20 Aripiprazole [Abilify] 30 mg PO DAILY 08/28/20 Atorvastatin Calcium [Lipitor] 40 mg PO BEDTIME 08/28/20 Furosemide [Lasix*] 40 mg PO DAILY 08/28/20 Losartan Potassium [Cozaar] 100 mg PO DAILY 08/28/20 Rivaroxaban [Xarelto*] 20 mg PO DAILY 6PM 08/28/20 Albuterol Neb [Proventil 0.083% Neb Soln] 2.5 mg NEB [id number] PRN #120 amp 08/29/20 Budesonide/Formoterol Fumarate [Symbicort 160-4.5 Mcg Inhaler] 1 puff IH DAILY PRN 09/17/20 Spironolactone [Aldactone] 25 mg PO DAILY #30 tablet 09/23/20 predniSONE [Deltasone] 20 mg PO DAILY #5 tab 09/23/20 - Past Medical/Surgical History Diabetic: Yes -: Hypertension -: Diabetes mellitus type 2 -: Posttraumatic stress disorder -: Anxiety -: Hepatitis-C -: Hyperlipidemia -: CAD, stent placement x2 -: Obstructive sleep apnea -: Obesity -: Diabetic neuropathy -: History pancreatitis -: COPD, tobacco abuse -: 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 - Family History Father -: Other (see notes) Notes: CHF Mother -: Cancer Notes: breast cancer Sister -: Cancer Notes: colon cancer Brother -: Cancer Notes: throat cancer - Social History Smoking Status: Former smoker Alcohol use: No CD- Drugs: No Caffeine use: Yes Place of Residence: Home Review of Systems 10-point ROS is otherwise unremarkable Respiratory: Shortness of Breath Physical Examination - Physical Exam General: Alert, Cooperative HEENT: Atraumatic, PERRLA, Mucous membr. moist/pink, EOMI, Sclerae nonicteric Neck: Supple, 2+ carotid pulse no bruit, No LAD, Without JVD or thyroid abnormality Respiratory: Diminished, Expiratory wheezes Cardiovascular: No edema, Normal pulses, Normal S1 S2, No gallops, No rubs, No murmurs, Irregular heart rate/rhythm Capillary refill: <2 Seconds Gastrointestinal: Normal bowel sounds, No tenderness Musculoskeletal: No tenderness Integumentary: No rashes Neurological: Normal speech, Normal strength at 5/5 x4 extr, Normal tone, Normal affect Lymphatics: No axilla or inguinal lymphadenopathy - Studies Laboratory Data (last 24 hrs) 01/13/21 01:31: PT 14.2 H, INR 1.23 01/13/21 01:31: WBC 12.60 H, Hgb 12.5 L, Hct 38.3 L, Plt Count 213 01/13/21 01:31: Sodium 141, Potassium 3.9, BUN 26 H, Creatinine 1.56 H, Glucose 207 H, Magnesium 2.0, Total Bilirubin 0.4, AST 15, ALT 20, Alkaline Phosphatase 90 Assessment and Plan - Problems (Diagnosis) (1) Afib Current Visit: Yes Status: Acute Qualifiers: Atrial fibrillation type: paroxysmal Qualified Code(s): I48.0 - Paroxysmal atrial fibrillation (2) Acute exacerbation of chronic obstructive airways disease Onset Date: 02/18/18 Current Visit: No Status: Acute (3) Acute on chronic diastolic (congestive) heart failure Onset Date: 05/07/17 Current Visit: No Status: Acute (4) Acute respiratory failure with hypoxia Current Visit: No Status: Acute (5) Coronary artery disease Current Visit: No Status: Chronic Qualifiers: Coronary Disease-Associated Artery/Lesion type: bypass graft [place] vs. transplanted heart: [place] heart Associated angina: without angina Qualified Code(s): I25.810 - Atherosclerosis of coronary artery bypass graft(s) without angina pectoris (6) Diabetes mellitus Onset Date: 12/03/16 Current Visit: No Status: Chronic (7) Hyperlipidemia Onset Date: 12/03/16 Current Visit: No Status: Chronic (8) Hypertension Onset Date: 05/07/17 Current Visit: No Status: Chronic Qualifiers: Hypertension type: primary hypertension Qualified Code(s): I10 - Essential (primary) hypertension - Plan on BIPAP, on telemetry continue breathing treatments, IV antibiotics and IV steroids blood and sputum cultures pending continue IV lasix, daily weights and fluid restriction, monitor BMP reconcile and continue home medications sliding scale insulin and accuchecks DVT ppx Discharge Plan: Home Plan to discharge in: 72 Hours - Advance Directives Does patient have a Living Will: No Does patient have a Durable POA for Healthcare: No - Code Status/Comfort Care Code Status Assessed: Yes (full code) Critical Care: No Time Spent Managing Pts Care (In Minutes): 70
[2021-01-13] MEDS ORDERED: ACETAMINOPHEN 500 MG TAB PO PRN (05:13)
[2021-01-13] MEDS ORDERED: ONDANSETRON 4 MG/2 ML VIAL IV PRN (05:13)
[2021-01-13 06:13] LABS: Albumin 3.4 g/dL (3.4-5.0); Bilirubin Total 0.3 mg/dL (0.2-1.0); Magnesium 2.1 mg/dL (1.8-2.4); Phosphorus 2.9 mg/dL (2.5-4.9); Potassium 4.1 mmol/L (3.5-5.1)
--- NOTE | 2021-01-13 07:01 | RAD REPORT ---
EXAM DESCRIPTION: RAD - Chest Single View - 01/13/2021 1:35 am CLINICAL HISTORY: COPD;Dyspnea COMPARISON: Chest Single View dated 12/29/2020; Chest Single View dated 09/18/2020; Chest Single View dated 09/17/2020; Chest Single View dated 08/28/2020 FINDINGS: Lines: None. Lungs: Similar increased interstitial markings bilaterally. Pleural: No significant pleural effusions or pneumothorax. Cardiac: Cardiomegaly. Sternotomy. Bones: No acute fractures. Other: IMPRESSION: Findings consistent with congestive heart failure, similar to 12/29/2020.
[2021-01-13 07:05] VITALS: BMI 35.2
[2021-01-13] MEDS: INSULIN -REGULAR HUMAN 50 UNIT/0.5 ML ML SQ SCH ×4 (07:30→22:36)
[2021-01-13] MEDS ORDERED: PNEUMOCOCCAL VACCINE 0.5 ML IMVAC ONE (08:00)
[2021-01-13] MEDS ORDERED: AMIODARONE HCL 200 MG TAB ONE (08:12)
[2021-01-13] MEDS ORDERED: FUROSEMIDE 20 MG/ 2ML VIAL ONE ×2 (08:12→17:57)
[2021-01-13] MEDS: IPRATROPIUM BROM 0.5MG/2.5ML NEB SCH ×3 (08:45→20:50)
[2021-01-13] MEDS: LEVALBUTEROL 1.25 MG/3 ML NEB NEB SCH ×3 (08:45→20:50)
[2021-01-13] MEDS: FUROSEMIDE 20 MG/ 2ML VIAL IV SCH ×2 (09:00→17:00)
[2021-01-13] MEDS ORDERED: FAMOTIDINE 20 MG/2 ML VIAL IV SCH (09:00)
[2021-01-13] MEDS: METHYLPREDNISOLONE 40 MG INJ IV SCH ×2 (09:00→17:00)
[2021-01-13] MEDS: AMIODARONE HCL 200 MG TAB PO SCH (09:00)
[2021-01-13] MEDS ORDERED: LEVALBUTEROL 0.63 MG/3 ML NEB ONE ×2 (09:05→13:58)
[2021-01-13] MEDS ORDERED: METHYLPREDNISOLONE 40 MG INJ ONE ×2 (10:40→17:34)
[2021-01-13] MEDS: RIVAROXABAN 20 MG TABLET PO SCH (17:00)
[2021-01-13] MEDS ORDERED: INSULIN -REGULAR HUMAN 50 UNIT/0.5 ML ML ONE (17:30)
[2021-01-13] MEDS ORDERED: RIVAROXABAN 20 MG TABLET PO ONE (17:33)
--- NOTE | 2021-01-13 17:47 | P.PN ---
Date of Service: 01/13/21 Patient seen and examined. He is currently doing well. He stated shortness of breath has improved, Initial troponin is negative. Heart rate is controlled. Plan: Increased IV Lasix dose to 40 mg b.i.d. Repeat echocardiogram. Continue amiodarone and Xarelto. Bronchodilators and IV steroid for possible COPD exacerbation Cardiology Consult. Monitor electrolytes.
[2021-01-13] MEDS ORDERED: ALPRAZOLAM 0.5 MG TABLET PO PRN (19:55)
[2021-01-13] MEDS ORDERED: ALPRAZOLAM 0.5 MG TABLET ONE (21:22)
[2021-01-14] MEDS ORDERED: CEFTRIAXONE/SWI 1gm 1 GM/10 ML SYR IV SCH
[2021-01-14] MEDS: METHYLPREDNISOLONE 40 MG INJ IV SCH ×3 (00:08→17:57)
[2021-01-14] MEDS ORDERED: CEFTRIAXONE 1 GM/NS 50 ML 1 GM/50 ML BAG IV SCH (01:00)
[2021-01-14] MEDS: LEVALBUTEROL 1.25 MG/3 ML NEB NEB SCH ×3 (02:00→14:18)
[2021-01-14] MEDS: IPRATROPIUM BROM 0.5MG/2.5ML NEB SCH ×3 (02:00→14:18)
[2021-01-14 06:11] LABS: Albumin 3.2 g/dL (3.4-5.0); Bilirubin Total 0.4 mg/dL (0.2-1.0); Magnesium 1.8 mg/dL (1.8-2.4); Potassium 3.6 mmol/L (3.5-5.1); Protein, Total 6.9 g/dL (6.4-8.2)
[2021-01-14] MEDS ORDERED: MAGNESIUM SULFATE 1 gm IVPB 1 GM/100 ML BAG IV ONE (06:45)
[2021-01-14] MEDS: AMIODARONE HCL 200 MG TAB PO SCH (08:27)
[2021-01-14] MEDS: INSULIN -REGULAR HUMAN 50 UNIT/0.5 ML ML SQ SCH ×3 (08:28→16:30)
[2021-01-14] MEDS ORDERED: FAMOTIDINE 20 MG/2 ML VIAL IV SCH (09:00)
[2021-01-14] MEDS ORDERED: POTASSIUM CL SA 10 MEQ TAB PO ONE (09:00)
[2021-01-14] MEDS: FUROSEMIDE 40 MG/4 ML VIAL IV SCH ×2 (09:47→17:00)
[2021-01-14] MEDS ORDERED: HOME MED 1 EA UNK (Budesonide/Formoterol Fumarate [Symbicort 160-4.5 Mcg Inhaler] 10.2 GM IH PRN (09:48)
[2021-01-14 10:25] VITALS: O2SAT 95
[2021-01-14] MEDS ORDERED: GABAPENTIN 300 MG CAP PO SCH ×2 (12:00→21:00)
--- NOTE | 2021-01-14 12:38 | P.PN ---
Subjective Date of Service: 01/14/21 Chief Complaint: respiratory distress Patient states he is feeling better and actually back to baseline. He requests to go home. BiPAP was taking of yesterday. He is currently tolerating room air. Physical Examination - Vital Signs Temperature: 97.7 F Blood Pressure: 162/67 Pulse: 55 Respirations: 18 Pulse Ox (%): 94 - Physical Exam General: Alert, In no apparent distress, Oriented x3 HEENT: Mucous membr. moist/pink Neck: JVD not distended Respiratory: Clear to auscultation bilaterally, Normal air movement Cardiovascular: No edema, Regular rate/rhythm, Normal S1 S2 Gastrointestinal: Soft and benign, Non-distended, No tenderness Musculoskeletal: No swelling Integumentary: No rashes Neurological: Normal strength at 5/5 x4 extr Assessment And Plan - Current Problems (Diagnosis) (1) Afib Current Visit: Yes Status: Acute Qualifiers: Atrial fibrillation type: paroxysmal Qualified Code(s): I48.0 - Paroxysmal atrial fibrillation (2) Acute exacerbation of chronic obstructive airways disease Onset Date: 02/18/18 Current Visit: No Status: Acute (3) Acute on chronic diastolic (congestive) heart failure Onset Date: 05/07/17 Current Visit: No Status: Acute (4) Bradycardia Current Visit: No Status: Acute (5) Coronary artery disease Current Visit: No Status: Chronic Qualifiers: Coronary Disease-Associated Artery/Lesion type: bypass graft [place] vs. transplanted heart: [place] heart Associated angina: without angina Qualified Code(s): I25.810 - Atherosclerosis of coronary artery bypass graft(s) without angina pectoris - Plan Patient has clinically improved. Troponin negative. Heart rate controlled. Will continue diuresis with IV Lasix for 1 more day. Cardiology consult is pending. Echocardiogram is pending. Continue amiodarone. Coreg is on hold due to bradycardia. Increase activity as tolerated. Monitor electrolytes
[2021-01-14] MEDS ORDERED: GABAPENTIN 400 MG CAP PO SCH (14:00)
--- NOTE | 2021-01-14 14:40 | CON ---
Date of Consultation: 01/14/2021 Reason For Consultation: Congestive heart failure. History Of Present Illness: A 70-year-old male with known history of coronary artery disease, COPD, CHF, diabetes, hypertension, and atrial fibrillation, presented with shortness of breath, orthopnea, lower extremity edema, found to be in acute congestive heart failure. Started on Lasix. [place] much b jeff and has at the present time, no complaints of chest pain, orthopnea, or even edema. Past Medical History: As outlined above in the HPI. Medications: Refer reconciliation sheet for detailed list. Allergies: NO KNOWN DRUG ALLERGIES. Family History: No premature coronary artery disease with history of colon cancer in his brother and sister. Social History: He is an ex-smoker. Does not drink. Does not use any drugs. Review of Systems: All systems were reviewed and they were negative except for what is mentioned in HPI. Physical Examination: Vital Signs: Showed temperature is 97.7, pulse 55, breathing at 18, blood pressure is 162/67, and sa turating 94%. General: Pleasant elderly male, no distress. Head and Neck: Pupils are equal and reactive to light. Intact eye movements. No JVD. No cervical lymphadenopathy. Neck: Supple. Thyroid is not enlarged. Lungs: Clear to auscultation bilaterally. No rhonchi, rales, or crackles. No accessory muscle use. Heart: Irregularly irregular. No extra sounds. Abdomen: Soft, nontender. Bowel sounds positive. No organomegaly. No rigidity or rebound. Extremities: No clubbing or cyanosis. Intact pulses. Skin: No rashes. Neurologic: Alert, awake, and oriented x3. No acute focal deficits appreciated. Investigations: Creatinine 1.26 and troponin 0.02. A chest x-ray showed heart failure findings. Assessment And Recommendations: 1.Feeev-mo-umqejxk diastolic heart failure exacerbation. The patient had an echo in September 2020. Ejec tion fraction was borderline normal. At this point, he seems to be euvolemic. I would recommend to switch to oral Lasix 40 mg twice a day. Discharged him on that and also, I would recommend to have a stress test to be done as an outpatient in the near future. 2.Atrial fibrillation. Continue Xarelto and amiodarone. 3.Coronary artery disease with frequent heart failure exacerbation. Recommend an exercise nuclear s tress test, which can be done as an outpatient. From cardiac standpoint, he can be released to [facility] within a week postdischarge. /PARTH Voice ID: [id number] Report ID: [id number]
[2021-01-14 17:41] VITALS: BP 176/86; TEMP 97.1
[2021-01-14] MEDS: RIVAROXABAN 20 MG TABLET PO SCH (17:56)
--- NOTE | 2021-01-14 18:02 | P.DS ---
Admission Date: 01/13/21 Discharge Date: 01/14/21 Disposition: ROUTINE DISCHARGE Discharge Condition: FAIR Reason for Admission: respiratory distress Consultations: Cardiology-Dr. Conte. - Problems (1) Afib Current Visit: Yes Status: Acute Qualifiers: Atrial fibrillation type: paroxysmal Qualified Code(s): I48.0 - Paroxysmal atrial fibrillation (2) Acute exacerbation of chronic obstructive airways disease Onset Date: 02/18/18 Current Visit: No Status: Acute (3) Acute on chronic diastolic (congestive) heart failure Onset Date: 05/07/17 Current Visit: No Status: Acute (4) Bradycardia Current Visit: No Status: Acute (5) Coronary artery disease Current Visit: No Status: Chronic Qualifiers: Coronary Disease-Associated Artery/Lesion type: bypass graft [place] vs. transplanted heart: [place] heart Associated angina: without angina Qualified Code(s): I25.810 - Atherosclerosis of coronary artery bypass graft(s) without angina pectoris Brief History of Present Illness: 70 yo M with CHF, COPD, DM, HTN, CAD s/p CABG, afib on xarelto presented with SOB that woke him up from sleep. He denied productive cough, sputum production, wheezing and edema. in the ED, WBC 12.6, BUN 26, Cr 1.56, GFR 44, Glu 207, Lactate 2.2, BNP 5231. He was hypoxic and placed on BiPAP. Chest x-ray demonstrated pulmonary vascular congestion. He was given a dose of IV Lasix. Patient was also in AFib with RVR and was given digoxin. He was diagnosed with CHF and hospitalized for further management. Hospital Course: Patient admitted to the medical and treated for CHF exacerbation with IV Lasix. Patient diuresed well and was weaned off BiPAP. He clinically improved to baseline. Patient was seen in consultation by cardiology who recommended outpatient stress test and to increase his Lasix to 40 mg daily to b.i.d. patient deemed stable for discharge. He will follow with Dr. Conte for arrangement for nuclear stress test. Vital Signs/Physical Exam: Temp Pulse Resp BP Pulse Ox 97.1 F 61 20 176/86 H 95 01/14/21 16:00 01/14/21 16:00 01/14/21 16:00 01/14/21 16:00 01/14/21 16:00 General: Alert, In no apparent distress, Oriented x3 HEENT: Mucous membr. moist/pink Neck: JVD not distended Respiratory: Clear to auscultation bilaterally, Normal air movement Cardiovascular: Regular rate/rhythm, Normal S1 S2 Gastrointestinal: Soft and benign, Non-distended Musculoskeletal: No swelling Integumentary: No rashes Neurological: Normal strength at 5/5 x4 extr Laboratory Data at Discharge: WBC 12.60 K/uL (4.3-10.9) H 01/13/21 01:31 Hgb 12.5 g/dL (13.6-17.9) L 01/13/21 01:31 Hct 38.3 % (39.6-49.0) L 01/13/21 01:31 Plt Count 213 K/uL (152-406) 01/13/21 01:31 PT 14.2 SECONDS (9.5-12.5) H 01/13/21 01:31 INR 1.23 01/13/21 01:31 Sodium 141 mmol/L (136-145) 01/14/21 05:36 Potassium 3.6 mmol/L (3.5-5.1) 01/14/21 05:36 BUN 32 mg/dL (7-18) H 01/14/21 05:36 Creatinine 1.26 mg/dL (0.55-1.3) 01/14/21 05:36 Glucose 163 mg/dL (74-106) H 01/14/21 05:36 Phosphorus 3.0 mg/dL (2.5-4.9) 01/14/21 05:36 Magnesium 1.8 mg/dL (1.8-2.4) 01/14/21 05:36 Total Bilirubin 0.4 mg/dL (0.2-1.0) 01/14/21 05:36 AST 9 U/L (15-37) L 01/14/21 05:36 ALT 17 U/L (12-78) 01/14/21 05:36 Alkaline Phosphatase 77 U/L (45-117) 01/14/21 05:36 Home Medications: Gabapentin [Neurontin*] 3 cap PO TID 12/02/16 Aspirin 81 mg PO DAILY 11/10/17 glipiZIDE [Glucotrol] 10 mg PO DAILY 11/10/17 Metformin ER [Glucophage ER*] 1,000 mg PO BID 02/17/18 Aripiprazole [Abilify] 30 mg PO DAILY 08/28/20 Atorvastatin Calcium [Lipitor] 40 mg PO BEDTIME 08/28/20 Losartan Potassium [Cozaar] 100 mg PO DAILY 08/28/20 Rivaroxaban [Xarelto*] 20 mg PO DAILY 6PM 08/28/20 Albuterol Neb [Proventil 0.083% Neb Soln] 2.5 mg NEB [id number] PRN #120 amp 08/29/20 Budesonide/Formoterol Fumarate [Symbicort 160-4.5 Mcg Inhaler] 1 puff IH DAILY PRN 09/17/20 Spironolactone [Aldactone] 25 mg PO DAILY #30 tablet 09/23/20 predniSONE [Prednisone*] 20 mg PO DAILY #5 tab 09/23/20 Amiodarone HCl 100 mg PO DAILY #30 01/14/21 Furosemide [Lasix*] 40 mg PO BID #60 tab 01/14/21 New Medications: Amiodarone HCl 100 mg PO DAILY #30 Furosemide [Lasix*] 40 mg PO BID #60 tab Physician Discharge Instructions: Please call Dr. Conte/Arline's office at [phone] for arrangement for nuclear stress test. Diet: AHA Activity: Ad margarita Followup: Unknown,U [Primary Care Provider] - Raffi Conte MD [ACTIVE - CAN ADMIT] - 1-2 Weeks Time spent managing pt's care (in minutes): 37
[2021-01-14] MEDS ORDERED: ATORVASTATIN 40 MG TAB PO SCH (21:00)
[2021-01-15] MEDS ORDERED: ASPIRIN 81 MG CHEWABLE TABLET PO SCH (09:00)
[2021-01-15] MEDS ORDERED: LOSARTAN POTASSIUM 50 MG TABLET PO SCH (09:00)
[2021-01-15] MEDS ORDERED: SPIRONOLACTONE 25 MG TABLET PO SCH (09:00)
[2021-01-15] MEDS ORDERED: HOME MED 1 EA UNK (Losartan Potassium [Cozaar] 25 MG Tablet) PO SCH (09:00)
== END 2021-01-14 18:45 | disposition home or self-care (01) | DRG 291 ==
LOC: ER 01:14 → ERHOLD 02:38 → 2ND 21:16
PROVIDERS: ADMIT Internal Medicine; ATTEND Internal Medicine
PROC: 5A09357 Assistance with Respiratory Ventilation, Less than 24 Consecutive Hours, Continuous Positive Airway Pressure (ICD-10-PCS; principal; 2021-01-13)
DX: I11.0 Hypertensive heart disease with heart failure (principal); J96.01 Acute respiratory failure with hypoxia; J44.1 Chronic obstructive pulmonary disease with (acute) exacerbation; I50.33 Acute on chronic diastolic (congestive) heart failure; I25.10 Atherosclerotic heart disease of native coronary artery without angina pectoris; R00.1 Bradycardia, unspecified; I48.0 Paroxysmal atrial fibrillation; Z95.1 Presence of aortocoronary bypass graft; Z95.5 Presence of coronary angioplasty implant and graft; E11.9 Type 2 diabetes mellitus without complications; E78.5 Hyperlipidemia, unspecified; Z79.01 Long term (current) use of anticoagulants; Z20.822 Contact with and (suspected) exposure to COVID-19
CPT/HCPCS: 36415; 71045; 80048; 80053; 80076; 82805; 82947; 83605; 83735; 83880; 84100; 84484; 85025; 85610; 87040; 93005; 94640; 94660; 94760; 96365; 96375; 99291; J0696; J1160; J1940; J2920; J2930; J3475; U0003

== ENCOUNTER 2021-03-26 05:53 | Observation (INO) | payer OTHER ==
--- OUTSIDE RECORDS SUMMARY | 2021-03-26 05:59 | XMS REPORT | Continuity of Care Document ---
:[address] [facility] t Address [address] Jean Baptiste. [address] [place] [address] Care Team Providers Name Role Phone Center, [place] [facility] Primary Care Physician [phone] Isa Monreal Attending Clinician Unavailable SHERI, K.H. Attending Clinician Unavailable SHERRY Attending Clinician Unavailable Sheri ESCOTO, K.H. Attending Clinician JAQUELIN Attending Clinician Unavailable Asha GUZMÁN Attending Clinician Unavailable Eloisa LYMAN Attending Clinician Unavailable JUAN FRANCISCO SÁNCHEZ Attending Clinician Unavailable Isa Monreal Admitting Clinician Unavailable Eloisa LYMAN Admitting Clinician Unavailable JUAN FRANCISCO SÁNCHEZ Admitting Clinician Unavailable Payers Payer Name Policy Type Policy Number Effective Date Expiration Date Eloisa DAVID [id number] 2009 ADMINISTRATION 00:00:00 Problems Condition Condition Condition Status Onset Resolution Last Treating Co mments Source Name Details Category Date Date Treatment Clinician Date Hx of CABG Hx of CABG Disease Active U nivers 9- ity of 00:00: [place] 00 [facility] Persistent Persistent Disease Active U nivers atrial atrial 01-31 [place] Acute Acute Disease Active [facility] hypoxemic hypoxemic - Luke [facility] - respirator respirator 00:00: Me [...] nter e) heart e) heart failure failure Other Other Disease Active [facility] shock shock 11-14 [facility] - 00:[facility]: Medical 00 Center Acute Acute Disease Active [facility] respirator respirator 7-12 Katerine kes - y y 00:00: Medical insufficie insufficie 00 Ce nter ncy ncy CAD CAD Disease Active [facility] (coronary [...] [facility] artery artery 05-06 PCI - disease disease 00:00: 2016- on Medica l 00 plavix / Center ACB x 3: IBRAHIM-> LAD, SVG-> OM1, SVG-> OM2 Diabetes Diabetes Disease Active Overview: [facility] mellitus mellitus - oral meds Holly es - 00:00: including Medical 00 metformin Center Hypertensi Hypertensi Disease Active C [facility] on on 1-01 kes - 00:00: [address] Hepatitis Hepatitis Disease Active 2006-05 Overview: Univers 0-18 Formatt[place] ity of 00:00: g of this [place] [id number] note Medical might be Branch different from the original. Hepatitis CICD10 Diagnosis Term [employer] NORRIS on NORRIS on Disease Active Overview: MELY Monahan CPAP CPAP claims [facility] e with Center CPAP Current Current Disease Active MELY Monahan smoker smoker [facility] Allergies, Adverse Reactions, Alerts Allergy Allergy Status Severity Reaction(s) Onset Inactive Treating Comm ents Source Name Type Date Date Clinician No Known DA Active [facility] 08-12 [facility] 00:00: [address] No Known DA Active U [facility] Allergie 08-12 [facility] 00:00: [address] NO KNOWN Drug Active [facility] ALLERG Class ity of S [facility] Social History Social Habit Start Date Stop Date Quantity Comments Source Exposure to Not sure [facility] SARS-CoV-2 (event) [facility] Cigarettes smoked 2021-02-23 2021-02-23 Univers ity of current (pack per 00:00:00 00:00:00 ) - Reported Branch Tobacco use and 2021-02-23 2021-02-23 Never used Universit y of exposure 00:00:00 00:00:00 [facility] Cigarette 2018-01-22 2018-01-22 MELY Guido - pack-years 00:00:00 00:00:00 [facility] Alcohol intake 2018-01-22 2018-01-22 Current MELY Curtis es - 00:00:00 00:00:00 non-drinker of [facility] nter alcohol (finding) Sex Ass[birth year] At [birth year] Universit y of 00:00:00 00:00:00 [facility] Smoking Status Start Date Stop Date Source Current every day smoker 2021-02-23 00:00:00 Uni versity of [facility] Medications Ordered Filled Start Stop Current Ordering Indication Dosage Frequency Signature Comments Components Source Medication Medication Date Date Medication? Clinician (SIG) Name Name furosemide 2020-05 Yes 40mg Take 40 mg U nivers (LASIX) 80 0-21 by mouth ity o f mg tablet 13:31: daily. 40 Jameel as 22 mg in AM Medical and 20 mg Branch in PM. Indication s: pt stopped taking d/t incontinen ce furosemide 2020-05 Yes 40mg Take 40 mg U nivers (LASIX) 80 0-21 by mouth ity o f mg tablet 13:31: daily. 40 Jameel as 22 mg in AM Medical and 20 mg Branch in PM. Indication s: pt stopped taking d/t incontinen ce furosemide 2020-05 Yes 40mg Take 40 mg U nivers (LASIX) 80 0-21 by mouth ity o f mg tablet 13:31: daily. 40 Jameel as 22 mg in AM Medical and 20 mg Branch in PM. Indication s: pt stopped taking d/t incontinen ce carvedilol 2020-05 Yes 25mg Take 25 mg U nivers 25 mg 0-21 by mouth 2 ity of tablet 13:23: (two) [place] 23 times Medical daily with Branch meals. carvedilol 2020-05 Yes 25mg Take 25 mg U nivers 25 mg 0-21 by mouth 2 ity of tablet 13:23: (two) [place] 23 times Medical daily with Branch meals. carvedilol 2020-05 Yes 25mg Take 25 mg U nivers 25 mg 0-21 by mouth 2 ity of tablet 13:23: (two) [place] 23 times Medical daily with Branch meals. rivaroxaban 2020-05 Yes Take by Un emilia 20 mg 0-21 mouth ity of tablet 13:23: daily. [place] [address] Medical Branch rivaroxaban 2020-05 Yes Take by Un emilia 20 mg 0-21 mouth ity of tablet 13:23: daily. [place] [address] Medical Branch rivaroxaban 2020-05 Yes Take by Un emilia 20 mg 0-21 mouth ity of tablet 13:23: daily. [place] [address] Medical Branch losartan 2020-05 Yes 100mg Take 100 Univ ers 100 mg 0-21 mg by ity of tablet 13:23: mouth [place] 14 daily. Medical Branch losartan 2020-05 Yes 100mg Take 100 Univ ers 100 mg 0-21 mg by ity of tablet 13:23: mouth [place] 14 daily. Medical Branch losartan 2020-05 Yes 100mg Take 100 Univ ers 100 mg 0-21 mg by ity of tablet 13:23: mouth [place] 14 daily. Medical Branch atorvastati 2020-05 Yes 40mg Take 40 mg Univers n 40 mg 0-21 by mouth ity of tablet 13:23: at [place] 08 bedtime. Medical Branch atorvastati 2020-05 Yes 40mg Take 40 mg Univers n 40 mg 0-21 by mouth ity of tablet 13:23: at [place] 08 bedtime. Medical Branch atorvastati 2020-05 Yes 40mg Take 40 mg Univers n 40 mg 0-21 by mouth ity of tablet 13:23: at [place] 08 bedtime. Medical Branch aspirin 81 2020-05 Yes 81mg Take 81 mg U nivers mg EC 0-21 by mouth ity of tablet 13:23: daily. [place] [address] Medical Branch aspirin 81 2020-05 Yes 81mg Take 81 mg U nivers mg EC 0-21 by mouth ity of tablet 13:23: daily. [place] [address] Medical Branch aspirin 81 2020-05 Yes 81mg Take 81 mg U nivers mg EC 0-21 by mouth ity of tablet 13:23: daily. [place] [address] Medical Branch amiodarone 2020-05 Yes 100mg Take 1 Univ ers 100 mg 0-05 tablet by ity of tablet 00:00: mouth [place] 00 daily. Medical Branch amiodarone 2020-05 Yes 100mg Take 1 Univ ers 100 mg 0-05 tablet by ity of tablet 00:00: mouth [place] 00 daily. Medical Branch amiodarone 2020-05 Yes 100mg Take 1 Univ ers 100 mg 0-05 tablet by ity of tablet 00:00: mouth [place] 00 daily. Medical Branch gabapentin Yes 1200mg Take 1,200 Univers 400 mg 9-28 mg by ity of capsule 11:28: mouth 3 [place] [address] (three) Medical times Branch daily. metFORMIN Yes 1000mg Take 1,000 Univers 1,000 mg 9-28 mg by ity of tablet 11:28: mouth 2 [place] [address] (two) Medical times Branch daily with meals. ARIPiprazol Yes 30mg Take 30 mg Univers e 30 mg 9-28 by mouth ity of tablet 11:28: daily. [address] Branch glipiZIDE Yes 10mg Take 10 mg Un emilia 10 mg 9-28 by mouth ity of tablet 11:28: daily. [address] Branch gabapentin Yes 1200mg Take 1,200 Univers 400 mg 9-28 mg by ity of capsule 11:28: mouth 3 [place] [address] (three) Medical times Branch daily. metFORMIN Yes 1000mg Take 1,000 Univers 1,000 mg 9-28 mg by ity of tablet 11:28: mouth 2 [place] [address] (two) Medical times Branch daily with meals. ARIPiprazol Yes 30mg Take 30 mg Univers e 30 mg 9-28 by mouth ity of tablet 11:28: daily. [address] glipiZIDE Yes 10mg Take 10 mg Un emilia 10 mg 9-28 by mouth ity of tablet 11:28: daily. [address] gabapentin Yes 1200mg Take 1,200 Univers 400 mg 9-28 mg by ity of capsule 11:28: mouth 3 [place] [address] (three) Medical times Branch daily. metFORMIN Yes 1000mg Take 1,000 Univers 1,000 mg 9-28 mg by ity of tablet 11:28: mouth 2 [place] [address] (two) Medical times [place] daily with meals. ARIPiprazol Yes 30mg Take 30 mg Univers e 30 mg 9-28 by mouth ity of tablet 11:28: daily. [address] glipiZIDE Yes 10mg Take 10 mg Un emilia 10 mg 9-28 by mouth ity of tablet 11:28: daily. [address] XANAX 1 MG 2020-0 Yes 3 tabs Unive rs ORAL TAB 8-12 daily ity of 09:33: [address] XANAX 1 MG 2020-0 Yes 3 tabs Unive rs ORAL TAB 8-12 daily ity of 09:33: [address] XANAX 1 MG 2020-0 Yes 3 tabs Unive rs ORAL TAB 8-12 daily ity of 09:33: [address] carvedilol Yes 12.5mg Take 12.[address] (COREG) 25 9-20 mg by [facility] - MG tablet 10:15: mouth 2 Medic al 53 (two) Center times daily with breakfast and dinner . clopidogrel Yes 75mg QD Take [address] [facility] (PLAVIX) 75 9-20 by mouth Luke s - mg tablet 10:15: daily. Medica l 53 Center aspirin 81 Yes 81mg QD Take [address] MG EC 9-20 by mouth [facility] - tablet 10:15: daily. [address] esomeprazol 2018-0 Yes 20mg QD Take [address] e (NEXIUM) 9-20 by mouth [facility]ukes - 20 MG 10:15: daily. Medical capsule [address] [place] gabapentin 2018-0 Yes 1200mg [id number] Take 1,[address] (NEURONTIN) 9-20 [id number] mg by L ukes - 600 MG [...] s - 5 MG tablet 10:15: daily. [facility] 53 Center carvedilol 2018-0 Yes 12.5mg Take 12.[address] (COREG) 25 9-20 mg by Lukes - MG tablet 10:15: mouth 2 Medic al 53 (two) Center times daily with breakfast and dinner . clopidogrel 2018-0 Yes 75mg QD Take [address] (PLAVIX) 75 9-20 by mouth Luke s - mg tablet 10:15: daily. Medica l [address] [place] aspirin 81 2018-0 Yes 81mg QD Take [address] MG EC 9-20 by mouth [facility]ukes - tablet 10:15: daily. [address] esomeprazol 2018-0 Yes 20mg QD Take [address] e (NEXIUM) 9-20 by mouth [facility]ukes - 20 MG 10:15: daily. Medical capsule [address] [place] gabapentin 2018-0 Yes 1200mg [id number] Take 1,[address] (NEURONTIN) 9-20 [id number] mg by L ukes - 600 MG [...] 10:15: daily. Medi oralia 53 Center furosemide 2018-0 Yes Resume [facility] [...] Immunizations Ordered Filled Immunization Date Status Comments [facility] e Immunization Name Name SARS-COV-2 COVID-19 2020-07-23 Completed Unive rsity of PFIZER VACCINE 00:00:00 [facility] SARS-COV-2 COVID-19 2020-07-23 Completed Unive rsity of PFIZER VACCINE 00:00:00 [facility] SARS-COV-2 COVID-19 2020-07-23 Completed Unive rsity of PFIZER VACCINE 00:00:00 [facility] SARS-COV-2 COVID-19 2020-07-02 Completed Unive rsity of PFIZER VACCINE 00:00:00 [facility] SARS-COV-2 COVID-19 2020-07-02 Completed Unive rsity of PFIZER VACCINE 00:00:00 [facility] SARS-COV-2 COVID-19 2020-07-02 Completed Unive rsity of PFIZER VACCINE 00:00:00 [facility] Vital Signs Vital Name Observation Time Observation Value Comments Source Systolic blood 2021-02-23 18:11:00 116 mm[Hg] Univer sity of [place] pressure [facility] Diastolic blood 2021-02-23 18:11:00 76 mm[Hg] Unive rsity of [facility] Heart rate 2021-02-23 18:11:00 76 /min [facility] Body weight 2021-02-23 18:11:00 117.028 kg [facility] BMI 2021-02-23 18:11:00 34.99 kg/m2 [facility] Oxygen saturation 2021-02-23 18:11:00 96 /min [facility] in Arterial blood [facility] by Pulse oximetry Procedures This patient has no known procedures. Plan of Care Planned Activity Planned Date Details Comments Source Future Scheduled 2021-01-[address] [facility] - Test 00:00:00 (Season Ended) [code = [facility] INFLUENZA VACCINE (Season Ended)] Future Scheduled 2021-01-[address] [facility] - Test 00:00:00 (Season Ended) [code = [facility] INFLUENZA VACCINE (Season Ended)] Future Scheduled 2020-05-[address] [facility] - Test 00:00:00 (12+) [code = Medical Center DEPRESSION SCREENING (12+)] Future Scheduled 2020-05-[address] [facility] - Test 00:00:00 (12+) [code = Medical Center DEPRESSION SCREENING (12+)] Future Scheduled 2018-07-[address] Katerine kes - Test 00:00:00 [facility] Medical Center (procedure) [code = 53787394] Future Scheduled 2018-07-[address] Katerine kes - Test 00:00:00 [facility] Medical Center (procedure) [code = 35046205] Future Scheduled 2014-11-[address] [...] 00:00:00 (1 of 1 - Medical Center [id number] PCV13) [code = PNEUMOCOCCAL 65+ YRS (1 of 1 - [id number] PCV13)] Future Scheduled 2013 PNEUMOCOCCAL 65+ YRS [facility] - Test 00:00:00 (1 of 1 - Medical Center [id number] PCV13) [code = PNEUMOCOCCAL 65+ YRS (1 of 1 - [id number] PCV13)] Future Scheduled 1998 SHINGLES VACCINES (1 [...] 00:00:00 examination Medical Center (regime/therapy) [code = 506910397] Future Scheduled 1958 Urine screening [facility] - Test 00:00:00 protein (procedure) Medical Center [code = 592257113] Future Scheduled 1958 DIABETIC EYE EXAM [facility] - Test 00:00:00 [code = DIABETIC EYE Medical Center EXAM] Future Scheduled [address] Holly es - Test 00:00:00 examination Medical Center (regime/therapy) [code = 772374068] Future Scheduled 1958 Urine screening [facility] - Test 00:00:00 protein (procedure) Medical Center [code = 365548955] Future Scheduled [address] [facility] Holly es - Test 00:00:00 malignant neoplasm of Medica l Center colon (procedure) [code = 344283675] Future Scheduled [address] [facility] [facility] Holly es - Test 00:00:00 malignant neoplasm of Medica l Center colon (procedure) [code = 947891397] Encounters Start End Encounter Admission Attending Care Care Encounter Source Date/Time Date/Time Type Type Clinicians Facility Department ID 2020-08-11 Inpatient JOHN Monreal [facility] [id number] [facility] 23:15:00 Daniel [id number] [facility] 2021-04-24 2021-04-24 Outpatient Isa WADE [facility] [id number] Univers 13:30:00 13:30:00 SENDIL [id number] ity [facility] 2021-03-23 2021-03-23 Outpatient Isa POWELL [facility] [id number] -[id number] Univers 13:20:00 13:20:00 NOELLE [id number] ity o f [facility] 2021-03-23 2021-03-23 Telephone Sheri [facility] [id number] Univers 00:00:00 00:00:00 Sendil Letty DILLARD [id number] ity of [place] [id number] PROF[place] [id number] [address] 2021-02-23 2021-02-23 Office Sheri [facility] [id number] Univers 12:49:37 13:33:16 Visit Sendil Letty [place] [id number] it[id number] Profess[place] [phone] [address] 2021-02-23 2021-02-23 [facility] [id number] Univers 13:00:00 13:00:00 [facility] 2021-02-23 2021-02-23 [facility] [id number] Univers 13:00:00 13:00:00 [facility] [id number] [facility] 2021-01-31 2021-01-31 [facility] [id number] -[id number] Univers 11:40:00 11:40:00 [facility] [id number] [facility] 2021-01-31 2021-01-31 Outpatient R JAQUELIN [facility] [id number] Univers 11:40:00 11:40:00 [facility] 2021-01-26 2021-01-26 Out[facility] [id number] Univers 00:00:00 00:00:00 SENDIL ity [facility] 2021-01-25 2021-01-25 Outpatient [facility] [id number] Univers 00:00:00 00:00:00 [facility] 2021-01-12 2021-01-12 Outpatient R SHERI [facility] [id number] Univers 13:30:00 13:30:00 SENDIL [id number] [facility] 2021-01-12 2021-01-12 Outpatient Isa WADE, [facility] [id number] Univers 13:30:00 13:30:00 SENDIL [facility] 2020-12-15 2020-12-15 [facility] [id number] 08:50:21 09:50:59 Visit Sendil Letty D[place] [id number] [place] [id number] Cece [id number] nal 059 Building 2020-12-15 2020-12-15 Outpatient [facility] [id number] Univers 09:00:00 09:00:00 SENDIL [facility] 2020-08-11 2020-08-11 Emergency [facility] [id number] Univers 14:46:00 14:46:00 [facility] 2007-02-17 2007-02-18 Outpatient [facility] [id number] Univers 00:00:00 08:13:49 2 [facility] Results Test Description Test Time Test Comments Results Result Comments Source GLUCOSE BEDSIDE TESTING 2020-08-13 12:07:00 Test Item Value Reference Range Interpretation Comme nts GLUCOSE BEDSIDE TESTING (test code = GLUBED) 137 MG/DL 60-99 H GLYCOSYLATED HEMOGLOBIN [id number] 11:19:00 Test Item Value Reference Range Interpretation [...] H (test code = MBG) BASIC METABOLIC [id number] 07:59:00 Test Item Value Reference Range Interpretation [...] 190 mg/dL PATIENT REFUSED; PER ANTONIO Soto (RN)BASIC METABOLIC [id number] 07:50:00 Test Item Value Reference Range Interpretation [...] MG/DL 8.4-10.2 N CA) PATIENT REFUSED; NORM Soto (STEPHEN)LIPID PROFILE (CORONARY RISK)2020-08-13 07:50:00 Test [...] 0-99 code = LDL) PATIENT REFUSED; NORM Soto (STEPHEN)PROTHROMBIN [id number] 07:46:00 Test Item Value Reference Range Interpretation [...] 3.0 - 4.5 PATIENT REFUSED; PER:ANTONIO MOORE)PTT [id number] 07:46:00 Test Item Value Reference Range Interpretation Comments PTT ACTIVATED (test code = APTT) 39.0 SECONDS 25.1-36.5 H PATIENT REFUSED; PER:ANTONIO MOORE)CBC W/AUTO [id number] 07:35:00 Test Item Value Reference Range Interpretation [...] PATIENT REFUSED; PER ANTONIO Soto (RN)GLUCOSE BEDSIDE [id number] 04:56:00 Test Item Value Reference Range Interpretation Comments GLUCOSE BEDSIDE TESTING (test code 123 MG/DL 60-99 H = GLUBED) GLUCOSE BEDSIDE [id number] 18:50:00 Test Item Value Reference Range Interpretation Comments GLUCOSE BEDSIDE TESTING (test code 221 MG/DL 60-99 H = GLUBED) GLUCOSE BEDSIDE [id number] 15:43:00 Test Item Value Reference Range Interpretation Comments GLUCOSE BEDSIDE TESTING (test code 126 MG/DL 60-99 H = GLUBED) GLUCOSE BEDSIDE [id number] 11:35:00 Test Item Value Reference Range Interpretation Comments GLUCOSE BEDSIDE TESTING (test code 161 MG/DL 60-99 H = GLUBED) GLYCOSYLATED HEMOGLOBIN [id number] 10:30:00 Test Item Value Reference Range Interpretation [...] H (test code = MBG) COMPREHENSIVE METABOLIC [id number] 09:27:00 Test Item Value Reference Range Interpretation [...] 38-126 N PHOSPHATASE (test code = ALKP) [id number] 09:27:00 Test Item Value Reference Range Interpretation Comments TROPONIN-I (test code = TROPI) 0.089 NG/ML 0.012-0.033 H T4 [id number] 09:07:00 Test Item Value Reference Range Interpretation Comments T4 FREE (test code = T4F) 1.5 NG/DL 0.78-2.19 N Specimen comments: please run from tsh previously drawnCOMPREHENSIVE METABOLIC [id number] 08:51:00 Test Item Value Reference Range Interpretation [...] 38-126 N PHOSPHATASE (test code = ALKP) [id number] 08:51:00 Test Item Value Reference Range Interpretation Comments TROPONIN-I (test code = TROPI) NG/ML 0.0-0.045 CBC W/AUTO [id number] 08:36:00 Test Item Value Reference Range Interpretation [...] 0.00 K/mm3 0.0-0.1 N NRBC#) GLUCOSE BEDSIDE [id number] 07:36:00 Test Item Value Reference Range Interpretation Comments GLUCOSE BEDSIDE TESTING (test code 178 MG/DL 60-99 H = GLUBED) URINALYSIS [id number] 04:39:00 Test Item Value Reference Range Interpretation [...] UACULT) Criteria SOURCE OF URINE: CLEAN CATCHURINALYSIS [id number] 04:35:00 Test Item Value Reference Range Interpretation [...] SOURCE OF URINE: CLEAN CATCHTSH REFLEX TO [id number] 04:06:00 Test Item Value Reference Range Interpretation Comments TSH REFLEX TO FT4 0.391 MIU/L 0.65-4.68 L Please be aware that (test code = bias results fo r TSH TSHREFLEX) may occur forpa tient who are taking Biotin supplements. [id number] 04:06:00 Test Item Value Reference Range Interpretation Comments MAGNESIUM (test code = MAG) 1.8 MG/DL 1.6-2.3 N LIPOPROTEIN LDL [id number] 04:06:00 Test Item Value Reference Range Interpretation Comments LIPOPROTEIN LDL DIRECT 92 mg/dL 100-129 L ===== (test code = LDLDIR) ======= ==Refe rence Interval: mg/dL mmol/L--------- ------ ------ ------ --Optimal <100 <2.6Near/abov e optimal 100-129 2.6-3.3Borderli ne High 130-159 3.4-4.1High 16 0-189 4.1-4.9Ve ry High >=190 >=4.9========= This LDL result is a direct measurement.=== ====== [id number] 04:06:00 Test Item Value Reference Range Interpretation Comments TROPONIN-I (test code = TROPI) 0.075 NG/ML 0.012-0.033 H [id number] 03:48:00 Test Item Value Reference Range Interpretation Comments MAGNESIUM (test code = MAG) 1.8 MG/DL 1.6-2.3 N LIPOPROTEIN LDL [id number] 03:48:00 Test Item Value Reference Range Interpretation Comments LIPOPROTEIN LDL DIRECT (test code = mg/dL 100-129 LDLDIR) [id number] 03:48:00 Test Item Value Reference Range Interpretation Comments TROPONIN-I (test code = TROPI) 0.075 NG/ML 0.012-0.033 H [id number] 03:38:00 Test Item Value Reference Range Interpretation Comments MAGNESIUM (test code = MAG) 1.8 MG/DL 1.6-2.3 N [id number] 03:38:00 Test Item Value Reference Range Interpretation Comments TROPONIN-I (test code = TROPI) NG/ML 0.0-0.045 GLUCOSE BEDSIDE [id number] 23:56:00 Test Item Value Reference Range Interpretation Comments GLUCOSE BEDSIDE TESTING (test code 211 MG/DL 60-99 H = GLUBED) HEMOGLOBIN [id number] 09:40:00 Test Item Value Reference Range Interpretation Comments HEMOGLOBIN A1C (BEAKER) (test code = 6.1 % 4.3-6.1 368) RAD, CHEST, 1 VIEW, NON [id number] 09:36:00Reason for exam:->sobShould this be performed at the bedside?->YesFINAL REPORT Chest one view compared to January 22 Discussion: There is cardiac prominence and interstitial congestion. There is linear opacity in both lower lungs. No effusionor pneumothorax. Signed: Denice Traneport Verified Date/Time: 01/23/2018 09:36:57 Reading Location: [facility] Radiology Reading Room POCT-GLUCOSE [id number] 08:04:00 Test Item Value Reference Range Interpretation Comments POC-GLUCOSE METER 176 mg/dL 70-110 H TESTED AT [facility] 6720 (BEAKER) (test code = BREEZY [place] MD 1538) [address] [id number] 06:49:00 Test Item Value Reference Range Interpretation Comments MAGNESIUM (BEAKER) 2.1 mg/dL 1.6-2.6 Specimen slightly (test code = 627) hemolyzed BASIC METABOLIC [id number] 06:49:00 Test Item Value Reference Range Interpretation [...] PATIEN TS. CBC W/PLT COUNT & AUTO [id number] 06:30:00 Test Item Value Reference Range Interpretation [...] PERCENT (BEAKER) (test code = 2801) POCT-GLUCOSE [id number] 22:19:00 Test Item Value Reference Range Interpretation Comments POC-GLUCOSE METER 235 mg/dL 70-110 H TESTED AT [facility] 6720 ([facility]) (test code = BREEZY [place] 1538) [address] TROPONIN [id number] 17:45:00 Test Item Value Reference Range Interpretation [...] B-TYPE NATRIURETIC PEPTIDE 1407 pg/mL 0-100 H ([facility]MA [facility] (test code = 700) [id number] 17:35:00 Test Item Value Reference Range Interpretation Comments MAGNESIUM (BEAKER) (test code = 1.9 mg/dL 1.6-2.6 627) COMPREHENSIVE METABOLIC [id number] 17:35:00 Test Item Value Reference Range Interpretation [...] NOT APPLICABLE FOR DIALYSIS PATIEN TS. LIPID [id number] 17:35:00 Test Item Value Reference Range Interpretation [...] 160-189 Very High >=190LACTIC ACID, VENOUS, WHOLE [id number] 17:29:00 Test Item Value Reference Range Interpretation Comments LACTATE BLOOD VENOUS 1.0 mmol/L 0.5-2.2 Specime n slightly (2) (BEAKER) (test hemolyzed code = 2872) Effective 09/07/2015: Units/Reference Range ChangeNew: 0.5-2.2 mmol/L Previous: 5-20 mg/[id number] 17:29:00 Test Item Value Reference Range Interpretation Comments PARTIAL THROMBOPLASTIN TIME 46.7 seconds 22.5-36.0 H (BEAKER) (test code = 760) PROTHROMBIN [id number] 17:28:00 Test Item Value Reference Range Interpretation [...] = 2801) RAD, CHEST, 1 VIEW, NON [id number] 17:16:00Reason for exam:->sp acute respiratory failure/bronchospasmShould this [...] Banegas Verified Date/Time: 01/22/2018 17:16:12 Reading Location: [facility] Reading Room POCT-GLUCOSE [id number] 17:12:00 Test Item Value Reference Range Interpretation Comments POC-GLUCOSE METER 118 mg/dL 70-110 H TESTED AT [facility] 6720 (BEAKER) (test code = [place] 1538) [address] BLOOD GAS, [id number] 16:35:00 Test Item Value Reference Range Interpretation [...] (test code = 1819) 32.0 % POCT-GLUCOSE [id number] 14:15:00 Test Item Value Reference Range Interpretation Comments POC-GLUCOSE METER 69 mg/dL 70-110 L Will Repea t Test/TESTED (BEAKER) (test code = AT [facility] 67[address] [place] 1538) [facility] 7703 0 POCT-GLUCOSE [id number] 08:43:00 Test Item Value Reference Range Interpretation Comments POC-GLUCOSE METER 277 mg/dL 70-110 H TESTED AT [facility] 6720 (BEAKER) ([facility] = [facility] 1538) [address] [id number] 06:20:00 Test Item Value Reference Range Interpretation Comments PHOSPHORUS (BEAKER) (test code = 3.3 mg/dL 2.3-4.7 604) [id number] 06:20:00 Test Item Value Reference Range Interpretation Comments MAGNESIUM (BEAKER) (test code = 1.8 mg/dL 1.6-2.6 627) BASIC METABOLIC [id number] 06:20:00 Test Item Value Reference Range Interpretation [...] PATIEN TS. CBC W/PLT COUNT & AUTO [id number] 06:09:00 Test Item Value Reference Range Interpretation [...] PERCENT (BEAKER) (test code = 2801) POCT-GLUCOSE [id number] 22:48:00 Test Item Value Reference Range Interpretation Comments POC-GLUCOSE METER 196 mg/dL 70-110 H TESTED AT [facility] 67 (BEAKER) (test code = [facility] 1538) [address] POCT-GLUCOSE [id number] 17:21:00 Test Item Value Reference Range Interpretation Comments POC-GLUCOSE METER 122 mg/dL 70-110 H TESTED AT [facility] 67 [facility] (test code = [facility] 1538) [address] [id number] 13:13:00 Test Item Value Reference Range Interpretation Comments PHOSPHORUS (BEAKER) (test code = 2.4 mg/dL 2.3-4.7 604) BASIC METABOLIC [id number] 13:13:00 Test Item Value Reference Range Interpretation [...] S NOT APPLICABLE FOR DIALYSIS PATIEN TS. [id number] 13:08:00 Test Item Value Reference Range Interpretation Comments MAGNESIUM (BEAKER) (test code = 1.7 mg/dL 1.6-2.6 627) CBC W/PLT COUNT & AUTO [id number] 12:50:00 Test Item Value Reference Range Interpretation [...] ABSOLUTE COUNT 5.61 K/ L 1.78-5.38 H ([facility]) (test code = 670) LYMPHOCYTES ABSOLUTE COUNT 2.05 K/ L 1.32-3.57 ([facility]) (test code = 414) MONOCYTES ABSOLUTE COUNT (BEAKER) 0.79 K/ L 0.30-0.82 (test code = 415) EOSINOPHILS ABSOLUTE COUNT 0.47 K/ L 0.04-0.54 (AKER) (test code = 416) BASOPHILS ABSOLUTE COUNT (AKER) 0.06 K/ L 0.01-0.08 (test code = 417) IMMATURE GRANULOCYTES-RELATIVE 0 % 0-1 PERCENT ([facility]) (test code = 2801) POCT-GLUCOSE [id number] 12:42:00 Test Item Value Reference Range Interpretation Comments POC-GLUCOSE METER 174 mg/dL 70-110 H TESTED AT [place] [address] ([facility]) (test code = [facility] Isa [facility] 1538) [address] POCT-GLUCOSE [id number] 08:01:00 Test Item Value Reference Range Interpretation Comments POC-GLUCOSE METER 175 mg/dL 70-110 H TESTED AT [place] [address] ([facility]) (test code = [facility] 1538) [address] RAD, CHEST, 1 VIEW, NON [id number] 03:44:00Reason for exam:->ptxShould this be performed at [...] MDReport Verified Date/Time: 11/18/2017 03:44:04 Reading Location: [address] Reading Room POCT- GLUCOSE [id number] 21:05:00 Test Item Value Reference Range Interpretation Comments POC-GLUCOSE METER 145 mg/dL 70-110 H TESTED AT [place] [address] ([facility]) (test code = [place] [facility] 1538) [address] POCT-GLUCOSE [id number] 17:19:00 Test Item Value Reference Range Interpretation Comments POC-GLUCOSE METER 129 mg/dL 70-110 H TESTED AT [place] [address] [facility] (test code = [place] [facility] 1538) [address] POCT-GLUCOSE [id number] 12:12:00 Test Item Value Reference Range Interpretation Comments POC-GLUCOSE METER 194 mg/dL 70-110 H TESTED AT [place] [address] ([facility]) (test code = [place] [facility] 1538) [address] POCT-GLUCOSE [id number] 07:30:00 Test Item Value Reference Range Interpretation Comments POC-GLUCOSE METER 171 mg/dL 70-110 H TESTED AT [place] [address] ([facility]) (test code = [place] [facility] 1538) [address] RAD, CHEST, 1 VIEW, NON [id number] 07:27:00Reason for exam:->ptxShould this be performed at [...] pleural effusion is seen. Signed: Boaz Esteban [facility] Verified Date/Time: 11/17/2017 07:27:16 Reading Location: [facility] B1 [id number] Consult Reading Room [id number] 07:19:00 Test Item Value Reference Range Interpretation Comments MAGNESIUM (BEAKER) (test code = 1.9 mg/dL 1.6-2.6 627) BASIC METABOLIC [id number] 07:19:00 Test Item Value Reference Range Interpretation [...] NOT APPLICABLE FOR DIALYSIS PATIEN TS. POCT-GLUCOSE [id number] 21:30:00 Test Item Value Reference Range Interpretation Comments POC-GLUCOSE METER 214 mg/dL 70-110 H TESTED AT [facility] 6720 (BEAKER) (test code = [place] [facility] 1538) [address] URINALYSIS W/ REFLEX URINE [id number] 16:32:00 Test Item Value Reference Range Interpretation [...] = 2795) RAD, CHEST, 1 VIEW, NON [id number] 15:34:00Reason for exam:->ptxShould this be performed at [...] left sided chest tube. Signed: [facility]az Esteban [facility] Verified Date/Time: 11/16/2017 15:34:49 Reading Location: [address] Consult Reading Room POCT-GLUCOSE [id number] 12:10:00 Test Item Value Reference Range Interpretation Comments POC-GLUCOSE METER 203 mg/dL 70-110 H TESTED AT [facility] 67 ([facility]) (test code = [place] Isa [facility] 1538) [address] POCT-GLUCOSE [id number] 08:21:00 Test Item Value Reference Range Interpretation Comments POC-GLUCOSE METER 181 mg/dL 70-110 H TESTED AT [facility] 6720 ([facility]) (test code = ARTUROJOCE Moss [facility] 1538) [address] RAD, CHEST, 1 VIEW, NON [id number] 08:03:00while patient is intubated or has chest tubes.Reason for exam:->PostopShould this be performed atthe bedside?->YesFINAL REPORT Chest one view compared to November 15 Discussion: Left chest tube is again noted. A left apical pneumothorax appears minimally larger now with pleural separation 1.8 cm. Patchy airspace opacities left mid lung overall similar. No effusion. IMPRESSIONS: A left-sided pneumothorax appears minimally larger. Signed: Denice Trna MEAGHANeport Verified Date/Time: 11/16/2017 08:03:32 Reading Location: [address] Reading Room POCT-GLUCOSE [id number] 00:11:00 Test Item Value Reference Range Interpretation Comments POC-GLUCOSE METER 159 mg/dL 70-110 H TESTED AT [place] [address] ([facility]) (test code = [facility] 1538) [address] POCT-GLUCOSE [id number] 20:33:00 Test Item Value Reference Range Interpretation Comments POC-GLUCOSE METER 163 mg/dL 70-110 H TESTED AT [place] [address] ([facility]) (test code = [facility] 1538) [address] POCT-GLUCOSE [id number] 17:33:00 Test Item Value Reference Range Interpretation Comments POC-GLUCOSE METER 183 mg/dL 70-110 H TESTED AT [place] [address] ([facility]) (test code = [facility] 1538) [address] URINE IMMUNOFIXATION, [id number] 17:17:00 Test Item Value Reference Range Interpretation Comments PROTEIN, URINE 30 mg/dL 0-14 H ([facility]) (test code = 1569) ALBUMIN URINE ELP 61.4 % ([facility]) (test code = 1018) GAMMA GLOBULIN URINE 38.6 % ([facility]) (test code = 1015) URINE GERARD [id number] No monoclonal proteins ([facility]) (test code = or monoclonal free 2602) light chains detected. [id number] Raine Martin MD ([facility]) (test code = (electronic signature) 2603) RAD, CHEST, 1 VIEW, NON [id number] 13:19:00while patient is intubated or has chest tubes.Reason for exam:->PostopShould this be performed atthe bedside?->YesFINAL REPORT Chest one view compared to November 14 Discussion: Left chest tube, right IJ pulmonary catheter are noted. There is pulmonary congestion and right midlung linear atelectasis grossly similar. No gross effusion. Tiny left apical pneumothorax unchanged. Signed: Denice Tran MDReport Verified Date/Time: 11/15/2017 13:19:28 Reading Location: [facility] Radiology ReadingRoom URINE PROTEIN ELECTROPHORESIS, RANDOM 2017-11-15 12:47:00 Test Item Value Reference Range Interpretation Comments PROTEIN, URINE 12 mg/dL 0-14 (BEAKER) (test code = 1569) ALBUMIN URINE ELP 61.4 % (BEAKER) (test code = 1018) GAMMA GLOBULIN URINE 38.6 % (BEAKER) (test code = 1015) UPEP, ID-[id number] (BEAKER) No monoclonal bands (test code = 2604) detected. [id number] Raine Martin [facility] (test code = (electronic signature) 5767) PROTEIN ELECTROPHORESIS, [id number] 12:29:00 Test Item Value Reference Range Interpretation [...] a hemolyzed sample. No monoclonal bands detected. [id number] Raine Martin MD [facility] (test code = (electronic signature) 4972) PROTEIN TOTAL SERUM, 7.0 gm/dL 6.0-8.3 SPEP (BEAKER) (test code = 6728) BLOOD GAS, [id number] 08:21:00 Test Item Value Reference Range Interpretation [...] code = 1819) 20.0 % BASIC METABOLIC [id number] 08:03:00 Test Item Value Reference Range Interpretation [...] DIALYSIS PATIEN TS. LACTIC ACID, ARTERIAL, WHOLE [id number] 07:57:00 Test Item Value Reference Range Interpretation Comments LACTATE BLOOD ARTERIAL (2) 0.8 mmol/L 0.5-2.2 (BEAKER) (test code = 2874) Effective 09/07/2015: Units/Reference Range ChangeNew: 0.5-2.2 mmol/L Previous: 5-20 mg/[id number] 02:55:00 Test Item Value Reference Range Interpretation Comments PHOSPHORUS (BEAKER) (test code = 2.8 mg/dL 2.3-4.7 604) [id number] 02:55:00 Test Item Value Reference Range Interpretation Comments MAGNESIUM (BEAKER) (test code = 2.1 mg/dL 1.6-2.6 627) BASIC METABOLIC [id number] 02:55:00 Test Item Value Reference Range Interpretation [...] NOT APPLICABLE FOR DIALYSIS PATIEN TS. PROTHROMBIN [id number] 02:53:00 Test Item Value Reference Range Interpretation Comments PROTIME (BEAKER) (test code = 14.9 seconds 11.7-14.7 H 759) INR (BEAKER) (test code = 370) 1.2 <=5.9 RECOMMENDED COUMADIN/WARFARIN INR THERAPY RANGESSTANDARD DOSE: 2.0 - 3.0 Includes: PROPHYLAXIS forvenous thrombosis, systemic embolization; TREATMENT for venous thrombosis and/or pulmonary embolus.HIGH RISK: Target INR is 2.5-3.5 for patients with mechanical heart valves.[id number] 02:53:00 Test Item Value Reference Range Interpretation Comments PARTIAL THROMBOPLASTIN TIME 34.0 seconds 22.5-36.0 (BEAKER) (test code = 760) CBC W/PLT COUNT & AUTO [id number] 02:43:00 Test Item Value Reference Range Interpretation [...] PERCENT (BEAKER) (test code = 2801) PLATELET [id number] 02:35:00 Test Item Value Reference Range Interpretation Comments PLATELET COUNT (BEAKER) (test 167 K/CU MM 150-450 code = 756) GLUCOSE-STAT [id number] 02:32:00 Test Item Value Reference Range Interpretation Comments GLUCOSE RANDOM (BEAKER) (test code 112 mg/dL 70-110 H = 652) HGB/HCT (H&H) - STAT [id number] 02:32:00 Test Item Value Reference Range Interpretation Comments HEMOGLOBIN (BEAKER) (test code = 10.5 g/dL 13.0-16.8 L 410) HEMATOCRIT (BEAKER) (test code = 31.0 % 40.0-50.0 L 411) CALCIUM, [id number] 02:31:00 Test Item Value Reference Range Interpretation Comments CALCIUM IONIZED (BEAKER) (test 1.18 mmol/L 1.12-1.27 code = 698) PH, BLOOD (BEAKER) (test code = 7.38 1810) SODIUM NA-STAT [id number] 02:31:00 Test Item Value Reference Range Interpretation Comments SODIUM (BEAKER) (test code = 381) 137 meq/L 135-148 POTASSIUM-STAT [id number] 02:31:00 Test Item Value Reference Range Interpretation Comments POTASSIUM (BEAKER) (test code = 3.7 meq/L 3.6-5.5 379) POCT-GLUCOSE [id number] 00:40:00 Test Item Value Reference Range Interpretation Comments POC-GLUCOSE METER 129 mg/dL 70-110 H TESTED AT [place] [address] [facility] (test code = [place] 1538) [address] POCT-GLUCOSE [id number] 00:40:00 Test Item Value Reference Range Interpretation Comments POC-GLUCOSE METER 143 mg/dL 70-110 H TESTED AT [place] [address] ([facility]) (test code = [place] 1538) [address] POCT-GLUCOSE [id number] 21:41:00 Test Item Value Reference Range Interpretation Comments POC-GLUCOSE METER 179 mg/dL 70-110 H TESTED AT [place] [address] ([facility]) (test code = [place] 1473) [address] BLOOD GAS, [id number] 19:39:00 Test Item Value Reference Range Interpretation [...] (test code = 1819) 40.0 % GLUCOSE-STAT [id number] 19:39:00 Test Item Value Reference Range Interpretation Comments GLUCOSE RANDOM (BEAKER) (test code 160 mg/dL 70-110 H = 652) HGB/HCT (H&H) - STAT [id number] 19:39:00 Test Item Value Reference Range Interpretation Comments HEMOGLOBIN (BEAKER) (test code = 11.0 g/dL 13.0-16.8 L 410) HEMATOCRIT (BEAKER) (test code = 32.0 % 40.0-50.0 L 411) SODIUM NA-STAT [id number] 19:37:00 Test Item Value Reference Range Interpretation Comments SODIUM (BEAKER) (test code = 381) 137 meq/L 135-148 POTASSIUM-STAT [id number] 19:37:00 Test Item Value Reference Range Interpretation Comments POTASSIUM (BEAKER) (test code = 4.0 meq/L 3.6-5.5 379) BLOOD GAS, [id number] 18:02:00 Test Item Value Reference Range Interpretation [...] arterial line present.RAD, CHEST, 1 VIEW, NON [id number] 17:20:00 Reason for exam:->PostopShould this be performed at the bedside?->YesFINAL REPORT EXAM: Frontal chest radiograph HISTORY PROVIDED: Postop COMPARISON: 11/13/2017 IMPRESSION:The tip of an endotracheal tube terminates 3.8 cm above the alexia. A right IJ approach [place]-Jun catheter has been placed with its tip [...] No acute osseous abnormality. Signed: Clayton Banegas [facility] Verified Date/Time: 11/14/2017 17:20:20 [facility] C METABOLIC [id number] 16:02:00 Test Item Value Reference Range Interpretation [...] S NOT APPLICABLE FOR DIALYSIS PATIEN TS. [id number] 16:02:00 Test Item Value Reference Range Interpretation Comments PHOSPHORUS (BEAKER) (test code = 2.3 mg/dL 2.3-4.7 604) [id number] 16:02:00 Test Item Value Reference Range Interpretation Comments MAGNESIUM (BEAKER) (test code = 2.6 mg/dL 1.6-2.6 627) LACTIC ACID, ARTERIAL, WHOLE [id number] 15:58:00 Test Item Value Reference Range Interpretation Comments LACTATE BLOOD 0.9 mmol/L 0.5-2.2 Specimen sligh tly ARTERIAL (2) (BEAKER) hemoly zed (test code = 2874) Effective 09/07/2015: Units/Reference Range ChangeNew: 0.5-2.2 mmol/L Previous: 5-20 mg/dLCBC W/PLT COUNT & AUTO [id number] 15:47:00 Test Item Value Reference Range Interpretation [...] (BEAKER) (test code = 2801) OXYGEN SATURATION, [id number] 15:37:00 Test Item Value Reference Range Interpretation Comments O2 SATURATION (MEASURED) (BEAKER) 55.5 % (test code = 1455) CALCIUM, [id number] 15:37:00 Test Item Value Reference Range Interpretation Comments CALCIUM IONIZED (BEAKER) (test 1.12 mmol/L 1.12-1.27 code = 698) PH, BLOOD (BEAKER) (test code = 7.41 1810) SODIUM NA-STAT [id number] 15:37:00 Test Item Value Reference Range Interpretation Comments SODIUM (BEAKER) (test code = 381) 138 meq/L 135-148 POTASSIUM-STAT [id number] 15:37:00 Test Item Value Reference Range Interpretation Comments POTASSIUM (BEAKER) (test code = 3.6 meq/L 3.6-5.5 379) BLOOD GAS, [id number] 15:37:00 Test Item Value Reference Range Interpretation [...] (test code = 1819) 60.0 % GLUCOSE-STAT [id number] 15:37:00 Test Item Value Reference Range Interpretation Comments GLUCOSE RANDOM (BEAKER) (test code 162 mg/dL 70-110 H = 652) HEMOGLOBIN-STAT [id number] 15:37:00 Test Item Value Reference Range Interpretation Comments HEMOGLOBIN (BEAKER) (test code = 11.2 g/dL 13.0-16.8 L 410) HGB/HCT (H&H) - STAT [id number] 15:37:00 Test Item Value Reference Range Interpretation Comments HEMOGLOBIN (BEAKER) (test code = 11.2 GM/DL 13.0-16.8 L 410) HEMATOCRIT (BEAKER) (test code = 33.0 % 40.0-50.0 L 411) [id number] 14:04:00 Test Item Value Reference Range Interpretation Comments ACTIVATED CLOTTING TIME 114 sec TEST ED AT [place] [address] ([facility]) (test code = BREEZY Moss [facility] 441) [address] [id number] 14:04:00 Test Item Value Reference Range Interpretation Comments ACTIVATED CLOTTING TIME 472 sec TEST ED AT [place] [address] ([facility]) (test code = BREEZY [place] 441) [address] [id number] 14:04:00 Test Item Value Reference Range Interpretation Comments ACTIVATED CLOTTING TIME 505 sec TEST ED AT [place] [address] ([facility]) (test code = [place] 441) [address] [id number] 14:04:00 Test Item Value Reference Range Interpretation Comments ACTIVATED CLOTTING TIME 543 sec TEST ED AT [facility] 6720 (BEAKER) (test code = BREEZY [place] 441) [address] CALCIUM, [id number] 13:58:00 Test Item Value Reference Range Interpretation Comments CALCIUM IONIZED (BEAKER) (test 1.11 mmol/L 1.12-1.27 L code = 698) PH, BLOOD (BEAKER) (test code = 7.36 1810) BLOOD GAS, [id number] 13:56:00 Test Item Value Reference Range Interpretation [...] (test code = 1819) 100.0 % GLUCOSE-STAT [id number] 13:56:00 Test Item Value Reference Range Interpretation Comments GLUCOSE RANDOM (BEAKER) (test code 167 mg/dL 70-110 H = 652) HGB/HCT (H&H) - STAT [id number] 13:56:00 Test Item Value Reference Range Interpretation Comments HEMOGLOBIN (BEAKER) (test code = 10.8 g/dL 13.0-16.8 L 410) HEMATOCRIT (BEAKER) (test code = 32.0 % 40.0-50.0 L 411) SODIUM NA-STAT [id number] 13:55:00 Test Item Value Reference Range Interpretation Comments SODIUM (BEAKER) (test code = 381) 136 meq/L 135-148 POTASSIUM-STAT [id number] 13:55:00 Test Item Value Reference Range Interpretation Comments POTASSIUM (BEAKER) (test code = 3.8 meq/L 3.6-5.5 379) BLOOD GAS, [id number] 12:54:00 Test Item Value Reference Range Interpretation [...] code = 1819) 65.0 % SODIUM NA-STAT [id number] 12:54:00 Test Item Value Reference Range Interpretation Comments SODIUM (BEAKER) (test code = 381) 134 meq/L 135-148 L GLUCOSE-STAT [id number] 12:54:00 Test Item Value Reference Range Interpretation Comments GLUCOSE RANDOM (BEAKER) (test code 158 mg/dL 70-110 H = 652) HGB/HCT (H&H) - STAT [id number] 12:54:00 Test Item Value Reference Range Interpretation Comments HEMOGLOBIN (BEAKER) (test code = 8.8 g/dL 13.0-16.8 L 410) HEMATOCRIT (BEAKER) (test code = 26.0 % 40.0-50.0 L 411) POTASSIUM-STAT [id number] 12:53:00 Test Item Value Reference Range Interpretation Comments POTASSIUM (BEAKER) (test code = 4.1 meq/L 3.6-5.5 379) BLOOD GAS, [id number] 12:20:00 Test Item Value Reference Range Interpretation [...] code = 1819) 60.0 % SODIUM NA-STAT [id number] 12:20:00 Test Item Value Reference Range Interpretation Comments SODIUM (BEAKER) (test code = 381) 134 meq/L 135-148 L GLUCOSE-STAT [id number] 12:20:00 Test Item Value Reference Range Interpretation Comments GLUCOSE RANDOM (BEAKER) (test code 187 mg/dL 70-110 H = 652) HGB/HCT (H&H) - STAT [id number] 12:20:00 Test Item Value Reference Range Interpretation Comments HEMOGLOBIN (BEAKER) (test code = 10.0 g/dL 13.0-16.8 L 410) HEMATOCRIT (BEAKER) (test code = 29.0 % 40.0-50.0 L 411) BLOOD GAS, [id number] 12:20:00 Test Item Value Reference Range Interpretation [...] (test code = 1819) 60.0 % POTASSIUM-STAT [id number] 12:18:00 Test Item Value Reference Range Interpretation Comments POTASSIUM (BEAKER) (test code = 3.5 meq/L 3.6-5.5 L 379) U/S, RENAL WITH [id number] 08:35:00Reason for exam:->INCLUDE DOPPLERS AND PVR- for [...] MDReport Verified Date/Time: 11/14/2017 08:35:40 Reading Location: [address] Ultrasound Reading Room POCT-GLUCOSE [id number] 07:34:00 Test Item Value Reference Range Interpretation Comments POC-GLUCOSE METER 190 mg/dL 70-110 H TESTED AT [facility] 6720 ([facility]) (test code = BREEZY [place] JO-ANN 1538) [address] [id number] 05:19:00 Test Item Value Reference Range Interpretation Comments MAGNESIUM (GALE) (test code = 2.0 mg/dL 1.6-2.6 627) BASIC METABOLIC [id number] 05:19:00 Test Item Value Reference Range Interpretation [...] PATIEN TS. CBC W/PLT COUNT & AUTO [id number] 05:00:00 Test Item Value Reference Range Interpretation [...] % 0-1 PERCENT (BEAKER) (test code = 2803) [id number] 01:56:00 Test Item Value Reference Range Interpretation Comments PARTIAL THROMBOPLASTIN TIME 69.0 seconds 22.5-36.0 H (AKER) (test code = 760) POCT-GLUCOSE [id number] 22:07:00 Test Item Value Reference Range Interpretation Comments POC-GLUCOSE METER 185 mg/dL 70-110 H TESTED AT [facility] - [place] [address] ([facility]) (test code = BREEZY [place] [facility] 1538) [id number] 18:43:00 Test Item Value Reference Range Interpretation Comments PARTIAL THROMBOPLASTIN TIME 45.2 seconds 22.5-36.0 H ([facility]) (test code = 760) [id number] 16:12:00 Test Item Value Reference Range Interpretation Comments THYROID STIMULATING HORMONE 0.53 uIU/mL 0.35-4.94 (BEAKER) (test code = 772) RAD, CHEST, 1 VIEW, NON [id number] 15:33:00Reason for exam:->preopShould this be performed at the bedside?->YesFINAL REPORT EXAM: Frontal chest radiograph HISTORY PROVIDED: Preop COMPARISON: 11/12/2017 IMPRESSION:No focal consolidation, pneumothorax, or significant pleural fluid. The cardiomediastinal silhouette is within normal limits. No acute osseous abnormality. Degenerative changes of the spine are present. Signed: Clayton Banegas Verified Date/Time: 11/13/2017 15:33:28Reading Location: [facility] Mammo Reading Room Electronically signed by: CLAYTON BANEGAS on 11/03 03:33 [id number] 15:06:00 Test Item Value Reference Range Interpretation Comments PARTIAL THROMBOPLASTIN TIME 51.6 seconds 22.5-36.0 H (BEAKER) (test code = 760) PROTHROMBIN [id number] 15:05:00 Test Item Value Reference Range Interpretation [...] INTERPRETATION (BEAKER) arachidonic acid (test code = 912644) suggests aspirin-like effect. [id number] Deven Mei MD (BEAKER) (test code = (electronic 3251) signature) PLATELET COUNT AGG 243 K/CU MM 150-450 (BEAKER) (test code = 2656) Platelet aggregation results may be falsely low with platelet counts<100,000/CU MM.CREATININE, RANDOM [id number] 06:28:00 Test Item Value Reference Range Interpretation Comments CREATININE URINE (BEAKER) (test 114.6 mg/dL code = 375) Reference Range: No NormalsPROTEIN, RANDOM [id number] 06:28:00 Test Item Value Reference Range Interpretation Comments PROTEIN, URINE (BEAKER) (test code = 30 mg/dL 0-14 H 1569) PH, [id number] 05:47:00 Test Item Value Reference Range Interpretation Comments PH VENOUS (BEAKER) (test code = 701) 7.40 7.32-7.42 VITAMIN D, [id number] 04:52:00 Test Item Value Reference Range Interpretation Comments VITAMIN D 25-OH (BEAKER) (test 36.5 ng/mL 6.6-49.9 code = 2764) Effective 02/13/2017: Reference Range ChangeNew: 6.6-49.9 ng/mL Previous: 13.0-47.8 ng/mLRecommended Vitamin D Target Range: 30.0-40.0 ng/mLPTH, INTACT 2017-11-13 04:25:00 Test Item Value Reference Range Interpretation Comments PARATHYROID HORMONE INTACT 91.7 pg/mL 8.5-72.5 H (BEAKER) (test code = 577) [id number] 04:21:00 Test Item Value Reference Range Interpretation Comments PARTIAL THROMBOPLASTIN TIME 53.6 seconds 22.5-36.0 H (BEAKER) (test code = 760) URIC [id number] 04:20:00 Test Item Value Reference Range Interpretation Comments URIC ACID (BEAKER) (test code = 9.0 mg/dL 2.6-7.2 H 773) [id number] 04:20:00 Test Item Value Reference Range Interpretation Comments MAGNESIUM (BEAKER) (test code = 2.0 mg/dL 1.6-2.6 627) [id number] 04:20:00 Test Item Value Reference Range Interpretation Comments PHOSPHORUS (BEAKER) (test code = 3.1 mg/dL 2.3-4.7 604) BASIC METABOLIC [id number] 04:20:00 Test Item Value Reference Range Interpretation [...] PATIEN TS. CBC W/PLT COUNT & AUTO [id number] 04:06:00 Test Item Value Reference Range Interpretation [...] 0-1 PERCENT (BEAKER) (test code = 2801) [id number] 22:34:00 Test Item Value Reference Range Interpretation Comments PARTIAL THROMBOPLASTIN TIME 49.5 seconds 22.5-36.0 H (BEAKER) (test code = 760) POCT-GLUCOSE [id number] 21:55:00 Test Item Value Reference Range Interpretation Comments POC-GLUCOSE METER 179 mg/dL 70-110 H TESTED AT [facility] (test code = BREEZY Moss [facility] 1538) [address] RAD, CHEST, 1 VIEW, NON [id number] 17:03:00Reason for exam:->sobShould this be performed at the bedside?->YesFINAL REPORT CHEST AP PORTABLE History provided: Shortness of breath Comparison studies: None Heart size normal. Lungs grossly clear and vascularity normal. IMPRESSION: Grossly clear chest. Signed: Eboni Johnson MDReport Verified Date/Time: 11/12/2017 17:03:31 Reading Location: [address] Radiology Reading Room [id number] 15:41:00 Test Item Value Reference Range Interpretation Comments PARTIAL THROMBOPLASTIN TIME 41.3 seconds 22.5-36.0 H ([facility]) (test code = 760) POCT-GLUCOSE [id number] 11:50:00 Test Item Value Reference Range Interpretation Comments POC-GLUCOSE METER 218 mg/dL 70-110 H TESTED AT [facility] 67[address] ([facility]) (test code = BREEZY GASTON MD 1538) [id number] PLATELET AGGREGATION: FUNCTION [id number] 10:14:00 Test Item Value Reference Range Interpretation Comments WEAK ADP 82 % 60-91 RESULT([facility]) (test code = 2135) PLATELET FUNCTION 60-100% indicates This is a corrected SCREEN INTERP normal platelet result. Pre vious ([facility]) (test function result was 50 -59% code = 2173) indicates mild platelet dysfunction on 11/11/2017 at 192 1 CDT [facility]OLOG[facility]- Deven Mei MD 2791 ([facility]) (electronic (test code = signature) 5412) PLATELET COUNT 283 K/CU MM 150-450 AGG ([facility]) (test code = 2656) TROPONIN [id number] 08:02:00 Test Item Value Reference Range Interpretation Comments TROPONIN I ([facility]) (test code = 17.70 ng/mL 0.00-0.03 HH [...] failure, acidosis, acute neurological disease, and persistent tachyarrhythmia.[id number] 07:55:00 Test Item Value Reference Range Interpretation Comments PARTIAL THROMBOPLASTIN TIME 42.7 seconds 22.5-36.0 H ([facility]) (test code = 760) [id number] 07:55:00 Test Item Value Reference Range Interpretation Comments MAGNESIUM ([facility]) (test code = 2.3 mg/dL 1.6-2.6 627) BASIC METABOLIC [id number] 07:55:00 Test Item Value Reference Range Interpretation [...] PATIEN TS. CBC W/PLT COUNT & AUTO [id number] 07:49:00 Test Item Value Reference Range Interpretation [...] % 0-1 PERCENT (BEAKER) (test code = 1777) POCT-GLUCOSE [id number] 07:33:00 Test Item Value Reference Range Interpretation Comments POC-GLUCOSE METER 159 mg/dL 70-110 H TESTED AT [facility] 67[address] (BEAKER) (test code = BREEZY Moss GASTON MD 1538) [address] [id number] 00:57:00 Test Item Value Reference Range Interpretation Comments PARTIAL THROMBOPLASTIN TIME 47.6 seconds 22.5-36.0 H (BEAKER) (test code = 760) [id number] 00:40:00 Test Item Value Reference Range Interpretation Comments MAGNESIUM (BEAKER) 2.3 mg/dL 1.6-2.6 Specimen slightly (test code = 627) hemolyzed BASIC METABOLIC [id number] 00:40:00 Test Item Value Reference Range Interpretation [...] NOT APPLICABLE FOR DIALYSIS PATIEN TS. POCT-GLUCOSE [id number] 21:57:00 Test Item Value Reference Range Interpretation Comments POC-GLUCOSE METER 162 mg/dL 70-110 H TESTED AT [facility] [address] ([facility]) (test code = [facility] 1538) [id number] HEMOGLOBIN [id number] 19:53:00 Test Item Value Reference Range Interpretation Comments HEMOGLOBIN A1C (BEAKER) (test code = 7.0 % 4.3-6.1 H 368) LIPID [id number] 18:10:00 Test Item Value Reference Range Interpretation Comments TRIGLYCERIDES (BEAKER) (test code = 399 mg/dL 540) CHOLESTEROL (BEAKER) (test code = 218 mg/dL 631) HDL CHOLESTEROL (BEAKER) (test code 20 mg/dL = 976) LDL CHOLESTEROL CALCULATED ([facility]) 118 mg/dL (test code = 633) Triglyceride Reference Range: Low Risk <150 Borderline 150-199 High Risk 200-499 Very High Risk >=500Cholesterol Reference Range: Low Risk <200 Borderline 200-239 High Risk >240HDL Cholesterol Reference Range: Low Risk >=60 High Risk <40LDL Cholesterol Reference Range: Optimal <100 Near Optimal 100-129 Borderline 130-159 High 160-189 Very High >=190BASIC METABOLIC [id number] 18:10:00 Test Item Value Reference Range Interpretation [...] APPLICABLE FOR DIALYSIS PATIEN TS. HEPATIC FUNCTION [id number] 18:10:00 Test Item Value Reference Range Interpretation [...] (test code = 24 U/L 6-55 347) [id number] 17:56:00 Test Item Value Reference Range Interpretation [...] (test code = 414) MONOCYTES ABSOLUTE COUNT ([facility]) 1.02 K/ L 0.30-0.82 H (test code = 415) EOSINOPHILS ABSOLUTE COUNT 0.26 K/ L 0.04-0.54 ([facility]) (test code = 416) BASOPHILS ABSOLUTE COUNT ([facility]) 0.07 K/ L 0.01-0.08 (test code = 417) IMMATURE GRANULOCYTES-RELATIVE 1 % 0-1 PERCENT ([facility]) (test code = 2801) POCT-GLUCOSE [id number] 16:49:00 Test Item Value Reference Range Interpretation Comments POC-GLUCOSE METER 128 mg/dL 70-110 H TESTED AT [facility] 67[address] ([facility]) (test code = BREEZY BUSCH 1538) [id number]
[2021-03-26] MEDS ORDERED: CEFTRIAXONE 1000 MG/VIAL ONE (06:29)
[2021-03-26 06:46] LABS: Arterial Blood Carboxyhemoglob 2.1 % (0-1.5); Blood Gas Oxyhemoglobin 91.2 % (94-97); Blood O2 Saturation 94.2 % (92-98.5)
[2021-03-26 07:13] LABS: Absolute Lymphocytes (CBC) 0.9 K/uL (0.7-4.9); Basophils % 0.8 % (0-1.3); Hematocrit 35.4 % (39.6-49.0); Lymphocytes % 7.8 % (15.3-44.8); MPV 8.4 fL (7.6-11.3); RBC Red Blood Cell Count 4.05 M/uL (4.33-5.43)
[2021-03-26 07:16] LABS: Protime INR 1.52
[2021-03-26 07:28] LABS: Albumin 3.2 g/dL (3.4-5.0); Bilirubin Direct 0.2 mg/dL (0-0.2); Bilirubin Total 0.5 mg/dL (0.2-1.0); CKMB Creatine Kinase MB 2.7 ng/mL (1.0-3.6); Potassium 3.8 mmol/L (3.5-5.1); Protein, Total 6.9 g/dL (6.4-8.2); Troponin (Emerg Dept Use Only) 0.02 ng/mL (0.0-0.045)
[2021-03-26 07:42] LABS: SARS-COV-2 RT PCR NEGATIVE (NEGATIVE)
[2021-03-26] MEDS ORDERED: METHYLPREDNISOLONE 125 MG INJ ONE (08:14)
[2021-03-26] MEDS ORDERED: LEVALBUTEROL 1.25 MG/3 ML NEB ONE (08:16)
--- NOTE | 2021-03-26 08:29 | RAD REPORT ---
EXAM DESCRIPTION: RAD - Chest Single View - 03/26/2021 6:58 am CLINICAL HISTORY: SOB COMPARISON: January 13September 18 TECHNIQUE: AP portable chest image was obtained 03/26/2021 6:58 am . FINDINGS: Increased interstitial opacification is present. No dense mass or consolidation. Cardiomeg helen is present with mild vascular engorgement. Sternotomy wires are in the midline. Trachea remains m idline. No measurable pleural effusion and no pneumothorax. No acute bony abnormality seen. No acute aortic findings suspected. IMPRESSION: Mild CHF/volume overload findings.
[2021-03-26] MEDS ORDERED: FUROSEMIDE 40 MG/4 ML VIAL ONE (09:21)
--- NOTE | 2021-03-26 09:25 | ER ---
Nurse's Notes [facility] Name: Ludwin Hsu Age: 70 yrs Sex: Male : 1950 Arrival Date: 03/26/2021 Time: 05:55 Bed 16 Private MD: Diagnosis: Acute on chronic combined systolic (congestive) and diastolic (congestive) heart failure;Hypoxia Presentation: 03/26 05:59 Chief complaint: EMS states: they were toned out for report of pt with respiratory bb distress pt room sat was 80% room air on their arrival he was tripoding and diaphoretic. Coronavirus screen: difficulty breathing, Client presents with at least one sign or symptom that may indicate coronavirus-19. Standard/surgical mask placed on the client. Ebola Screen: No symptoms or risks identified at this time. Initial Sepsis Screen: Does the patient meet any 2 criteria? RR > 20 per min. HR > 90 bpm. Does the patient have a suspected source of infection? Yes: Productive cough/pneumonia If YES to both, name of provider notified: Jose Monaco MD. Risk Assessment: Do you want to hurt yourself or someone else? Patient reports no desire to harm self or others. Onset of symptoms was March 26, 2021. 05:59 Method Of Arrival: EMS: [facility] bb 05:59 Acuity: NGUYEN 2 bb 06:10 Care prior to arrival: Medication(s) given: solumedrol 125 mg, Nitro 2 inches, NS 200 bb mL IV initiated. 20 GA, in the right wrist. Historical: - Allergies: 06:05 NKA; bb - Home Meds: 06:05 albuterol sulfate 90 mcg/actuation Inhl HFAA 1 puff every 6 hours [Active]; amiodarone bb 200 mg Oral tab [Active]; aspirin 81 mg Oral chew 1 tab once daily [Active]; atorvastatin 40 mg Oral tab 1 tab once daily [Active]; bupropion HCl 100 mg Oral tab daily [Active]; carvedilol 25 mg Oral tab 1 tab 2 times per day [Active]; losartan 50 mg Oral tab 1 tab once daily [Active]; metformin 1,000 mg Oral tab 1 tab 2 times per day [Active]; Xarelto 20 mg Oral tab 1 tab once daily [Active]; glipizide 5 mg Oral tr24 2 tabs once daily [Active]; gabapentin 400 mg Oral cap 1 cap 3 times per day [Active]; furosemide 80 mg Oral tab 1 tab once daily [Active]; clopidogrel 75 mg Oral tab 1 tab once daily [Active]; Prednisone Oral [Active]; - PMHx: 06:05 arteriosclerosis; CHF; chronic back pain; COPD; Diabetes - NIDDM; Hypertension; kidney bb disease; malignant neoplasm of epidimyis; Myocardial infarction; Pancreatitis; PTSD; tinnitus; Screenin:49 Abuse screen: Denies threats or abuse. Nutritional screening: No deficits noted. as6 Tuberculosis screening: No symptoms or risk factors identified. Fall Risk Secondary diagnosis (15 points) impaired mobility, IV access (20 points). Gait- Weak (10 pts.). Total Sag[place] Fall Scale indicates High Risk Score (45 or more points). Side Rails Up X 2 Frequent Obs/Assessments Occuring As available patient and family educated on Fall Prevention Program and Strategies. Assessment: 07:15 Reassessment: pt on BIPAP, crackles auscultated in NICHOLE lower lobes, slight nonpitting as6 edema to BLE, so complaints or concerns at this time. 12:14 Reassessment: Patient and/or family updated on plan of care and expected duration. Pain as6 level reassessed. Patient is alert, oriented x 3, equal unlabored respirations, skin warm/dry/pink. pt removed from BIPAP, tolerating well, SpO2 97% RA. 13:49 Reassessment: Patient and/or family updated on plan of care and expected duration. Pain as6 level reassessed. Patient is alert, oriented x 3, equal unlabored respirations, skin warm/dry/pink. provided pt with Jello, sandwich , water, soda. 15:01 Reassessment: Patient and/or family updated on plan of care and expected duration. Pain as6 level reassessed. Patient is alert, oriented x 3, equal unlabored respirations, skin warm/dry/pink. Vital Signs: 05:59 BP 125 / 73; Pulse 94; Resp 28 S; Temp 97.9(A); Pulse Ox 99% on BiPAP; Weight 119.29 kg bb (R); Height 6 ft. 0 in. (182.88 cm) (R); 07:58 BP 137 / 78; Pulse 85; Resp 20; Temp 96.4(TE); Pulse Ox 98% on BiPAP; mh5 09:20 BP 152 / 74; Pulse 90; Resp 19; Temp 98.1(TE); Pulse Ox 100% on BiPAP; as6 10:40 BP 117 / 100; Pulse 98; Resp 19; Pulse Ox 99% on BiPAP; as6 12:13 BP 153 / 48; Pulse 87; Resp 21; Pulse Ox 97% on R/A; as6 15:00 BP 143 / 54; Pulse 66; Resp 18 S; Pulse Ox 97% on R/A; as6 05:59 Body Mass Index 35.67 (119.29 kg, 182.88 cm) bb ED Course: 05:55 Patient arrived in ED. wm 06:03 Triage completed. bb 06:05 Arm band placed on Patient placed in an exam room, on a stretcher, on oxygen, on bb cafeteria monitor, on pulse oximetry, respiratory at bedside for placement of Bipap. EKG completed in triage. Results shown to MD. 06:10 Inserted saline lock: 20 gauge in left antecubital area, using aseptic technique. Blood bb collected. 06:12 Cruz Durate, RACHEL is PHCP. pm1 06:12 Jose Monaco MD is Attending Physician. pm1 06:58 Chest Single View XRAY In Process Unspecified. EDMS 07:34 Eros Garcia, STEPHEN is Primary Nurse. as6 08:11 Attending Physician role handed off by Jose Monaco MD rn 08:11 Nelson Jules MD is Attending Physician. rn 09:22 Add On-Lab Sent. 5 09:23 Topher Yuen MD is Hospitalizing Provider. pm1 09:47 Jj Ramirez is Hospitalizing Provider. pm1 09:49 Patient has correct armband on for positive identification. Bed in low position. Call as6 light in reach. Side rails up X2. bus driver/monitor on. Pulse ox on. NIBP on. 15:47 No provider procedures requiring assistance completed. Patient admitted, IV remains in as6 place. Administered Medications: 06:30 Drug: Rocephin (cefTRIAXone) 1 grams Route: IV; Rate: calculated rate; Site: left bb antecubital; 09:52 Follow up: Response: No adverse reaction; IV Status: Completed infusion; IV Intake: 13cgzl2 08:27 Drug: SOLU-Medrol (methylPrednisoLONE) 125 mg Route: IVP; Site: left antecubital; as6 09:53 Follow up: Response: No adverse reaction as6 08:27 Drug: Xopenex (levalbuterol) 2.5 mg Route: Inhalation; as6 09:53 Follow up: Response: No adverse reaction as6 09:33 Drug: Lasix (furosemide) 40 mg Route: IVP; Site: left antecubital; as6 09:53 Follow up: Response: No adverse reaction as6 Intake: 09:52 IV: 50ml; Total: 50ml. as6 Outcome: 09:24 Decision to Hospitalize by Provider. pm1 15:35 Patient left the ED. as6 15:47 Admitted to Med/surg accompanied by tech, via wheelchair, room 208, with chart, Report as6 called to Emerson MITCHELL 15:47 Condition: stable Signatures: Dispatcher [employer] Linana Mcgowan RN RN bb Nieto, Roman, MD MD rn Marinas, Patrick, RACHEL PUFF IRONER pm1 Diana Hensley Josephine Frias Ashby, RN RN as6
--- NOTE | 2021-03-26 09:25 | EDPHYS ---
Physician Documentation [facility] Name: Ludwin Hsu Age: 70 yrs Sex: Male : 1950 Arrival Date: 03/26/2021 Time: 05:55 Bed 16 Private MD: ED Physician Nelson Jules HPI: 03/26 06:31 This 70 yrs old Male presents to ER via EMS with complaints of Shortness Of Breath. pm1 06:31 The patient has shortness of breath that woke him/her from sleep, that occurred at pm1 home. Onset: The symptoms/episode began/occurred today, at 04:00. Duration: The symptoms are continuous, but are markedly better than the original presentation, with bipap. The patient's shortness of breath is alleviated by application of supplemental oxygen, Bipap by EMS. Associated signs and symptoms: Pertinent positives: productive cough, Pertinent negatives: chest pain, dizziness, fever, nausea, vomiting, Abdominal pain. Severity of symptoms: in the emergency department the symptoms have improved markedly. The patient has not recently seen a physician. Historical: - Allergies: 06:05 NKA; bb - Home Meds: 06:05 albuterol sulfate 90 mcg/actuation Inhl HFAA 1 puff every 6 hours [Active]; amiodarone bb 200 mg Oral tab [Active]; aspirin 81 mg Oral chew 1 tab once daily [Active]; atorvastatin 40 mg Oral tab 1 tab once daily [Active]; bupropion HCl 100 mg Oral tab daily [Active]; carvedilol 25 mg Oral tab 1 tab 2 times per day [Active]; losartan 50 mg Oral tab 1 tab once daily [Active]; metformin 1,000 mg Oral tab 1 tab 2 times per day [Active]; Xarelto 20 mg Oral tab 1 tab once daily [Active]; glipizide 5 mg Oral tr24 2 tabs once daily [Active]; gabapentin 400 mg Oral cap 1 cap 3 times per day [Active]; furosemide 80 mg Oral tab 1 tab once daily [Active]; clopidogrel 75 mg Oral tab 1 tab once daily [Active]; Prednisone Oral [Active]; - PMHx: 06:05 arteriosclerosis; CHF; chronic back pain; COPD; Diabetes - NIDDM; Hypertension; kidney bb disease; malignant neoplasm of epidimyis; Myocardial infarction; Pancreatitis; PTSD; tinnitus; ROS: 06:31 Constitutional: Negative for fever, chills, and weight loss, Cardiovascular: Negative pm1 for chest pain, palpitations, and edema. 06:31 Abdomen/GI: Negative for abdominal pain, nausea, vomiting, diarrhea, and constipation, Back: Negative for injury and pain, MS/Extremity: Negative for injury and deformity, Skin: Negative for injury, rash, and discoloration, Neuro: Negative for headache, weakness, numbness, tingling, and seizure. 06:31 Respiratory: Positive for cough, with yellow sputum, shortness of breath. 06:31 All other systems are negative. Exam: 06:31 Constitutional: This is a well developed, well nourished patient who is awake, alert, pm1 and in no acute distress. Head/Face: Normocephalic, atraumatic. 06:31 Back: No spinal tenderness. No costovertebral tenderness. Full range of motion. Skin: Warm, dry with normal turgor. Normal color with no rashes, no lesions, and no evidence of cellulitis. MS/ Extremity: Pulses equal, no cyanosis. Neurovascular intact. Full, normal range of motion. 06:31 Cardiovascular: Exam negative for acute changes, Rate: normal, Rhythm: regular, Pulses: no pulse deficits are appreciated, Heart sounds: normal, normal S1and S2, Edema: is not appreciated. 06:31 Respiratory: the patient does not display signs of respiratory distress, patient on Bipap, Respirations: normal, no acute changes, Breath sounds: rales, that are mild, are heard in the left posterior lower lobe. 06:31 Abdomen/GI: Exam negative for acute changes, Inspection: abdomen appears normal, Palpation: abdomen is soft and non-tender, in all quadrants. 06:31 Neuro: Exam negative for acute changes, Orientation: is normal, Mentation: is normal, Motor: moves all fours. Vital Signs: 05:59 BP 125 / 73; Pulse 94; Resp 28 S; Temp 97.9(A); Pulse Ox 99% on BiPAP; Weight 119.29 kg bb (R); Height 6 ft. 0 in. (182.88 cm) (R); 07:58 BP 137 / 78; Pulse 85; Resp 20; Temp 96.4(TE); Pulse Ox 98% on BiPAP; mh5 09:20 BP 152 / 74; Pulse 90; Resp 19; Temp 98.1(TE); Pulse Ox 100% on BiPAP; as6 10:40 BP 117 / 100; Pulse 98; Resp 19; Pulse Ox 99% on BiPAP; as6 12:13 BP 153 / 48; Pulse 87; Resp 21; Pulse Ox 97% on R/A; as6 15:00 BP 143 / 54; Pulse 66; Resp 18 S; Pulse Ox 97% on R/A; as6 05:59 Body Mass Index 35.67 (119.29 kg, 182.88 cm) bb MDM: 06:12 Patient medically screened. pm1 06:15 Differential diagnosis: CHF exacerbation, Chronic Obstructive Pulmonary Disease pm1 Myocardial Infarction pneumonia, pulmonary edema, Pulmonary Embolism Sepsis Unstable Angina. 06:31 Data reviewed: vital signs. pm1 09:20 Counseling: I had a detailed discussion with the patient and/or guardian regarding: the pm1 historical points, exam findings, and any diagnostic results supporting the discharge/admit diagnosis, lab results, radiology results, the need for further work-up and treatment in the hospital. 03/26 06:14 Order name: Amylase, Serum pm1 03/26 06:14 Order name: Basic Metabolic Panel pm1 03/26 06:14 Order name: Blood Culture Adult (2) pm1 03/26 06:14 Order name: CBC with Diff pm1 03/26 06:14 Order name: CPK pm1 03/26 06:14 Order name: Ckmb pm1 03/26 06:14 Order name: LFT's pm1 03/26 06:14 Order name: Lactate pm1 03/26 06:14 Order name: Lipase pm1 03/26 06:14 Order name: Procalcitonin pm1 03/26 06:14 Order name: Protime (+inr) pm1 03/26 06:14 Order name: Ptt, Activated pm1 03/26 06:14 Order name: Troponin (emerg Dept Use Only); Complete Time: 08:26 pm1 03/26 06:14 Order name: Urine Microscopic Only; Complete Time: 13:54 pm1 03/26 06:15 Order name: Amylase; Complete Time: 08:26 EDMS 03/26 06:15 Order name: Basic Metabolic Panel; Complete Time: 08:26 EDMS 03/26 06:15 Order name: Blood Culture EDMS 03/26 06:15 Order name: CBC with Automated Diff; Complete Time: 10:17 EDMS 03/26 06:15 Order name: Creatine Phosphokinase; Complete Time: 08:26 EDMS 03/26 06:15 Order name: CKMB Creatine Kinase MB; Complete Time: 08:26 EDMS 03/26 06:15 Order name: Liver (Hepatic) Function; Complete Time: 08:26 EDMS 03/26 06:15 Order name: Lactate; Complete Time: 07:27 EDMS 03/26 06:15 Order name: Lipase; Complete Time: 08:26 EDMS 03/26 06:15 Order name: Procalcitonin; Complete Time: 07:54 EDMS 03/26 06:15 Order name: Protime (+INR); Complete Time: 07:27 EDMS 03/26 06:15 Order name: PTT, Activated Partial Thromb; Complete Time: 07:27 EDMS 03/26 06:45 Order name: ABG Arterial Blood Gas; Complete Time: 06:54 EDMS 03/26 07:01 Order name: COVID-19/FLU A+B; Complete Time: 07:44 EDMS 03/26 06:14 Order name: Chest Single View XRAY; Complete Time: 08:40 pm1 03/26 06:14 Order name: Accucheck; Complete Time: 08:01 pm1 03/26 06:14 Order name: Cardiac monitoring; Complete Time: 06:16 pm1 03/26 06:14 Order name: EKG - Nurse/Tech; Complete Time: 06:16 pm1 03/26 06:14 Order name: IV Saline Lock - Large Bore; Complete Time: 06:46 pm1 03/26 06:14 Order name: Labs collected and sent; Complete Time: 06:46 pm1 03/26 06:14 Order name: O2 Per Protocol; Complete Time: 06:16 pm1 03/26 06:14 Order name: O2 Sat Monitoring; Complete Time: 06:16 pm1 03/26 06:14 Order name: Urine Dipstick-Ancillary (obtain specimen); Complete Time: 11:18 pm1 03/26 08:10 Order name: Add On-Lab ss 03/26 08:11 Order name: NT PRO-BNP; Complete Time: 08:26 EDMS 03/26 10:02 Order name: CBC Smear Scan; Complete Time: 10:17 EDMS 03/26 11:15 Order name: Urine Dipstick-Ancillary; Complete Time: 13:54 EDMS Administered Medications: 06:30 Drug: Rocephin (cefTRIAXone) 1 grams Route: IV; Rate: calculated rate; Site: left bb antecubital; 09:52 Follow up: Response: No adverse reaction; IV Status: Completed infusion; IV Intake: 50snvg4 08:27 Drug: SOLU-Medrol (methylPrednisoLONE) 125 mg Route: IVP; Site: left antecubital; as6 09:53 Follow up: Response: No adverse reaction as6 08:27 Drug: Xopenex (levalbuterol) 2.5 mg Route: Inhalation; as6 09:53 Follow up: Response: No adverse reaction as6 09:33 Drug: Lasix (furosemide) 40 mg Route: IVP; Site: left antecubital; as6 09:53 Follow up: Response: No adverse reaction as6 Disposition: 16:41 Co-signature as Attending Physician, Nelson Jules MD I agree with the assessment and rn plan of care. Attestation: The patient's history, exam findings, diagnostics, and a summary of any interventions or procedures was reviewed in detail with Cruz Duarte NP. Disposition Summary: 03/26/21 09:24 Hospitalization Ordered Hospitalization Status: Inpatient Admission pm1 Location: Telemetry/[facility] (Inpatient) pm1 Condition: Stable pm1 Problem: new pm1 Symptoms: have improved pm1 Bed/Room Type: Standard pm1 Provider: Jj Ramirez(03/26/21 09:47) pm1 Room Assignment: [facility](03/26/21 14:38) Diagnosis - Acute on chronic combined systolic (congestive) and diastolic (congestive) heart pm1 failure - Hypoxia pm1 Forms: - Medication Reconciliation Form pm1 - SBAR form pm1 Signatures: Dispatcher [employer] Shira Olson RN RN dw Ballard, Brenda, RN RN bb Nieto, Roman, MD MD rn Marinas, Patrick, NP ALKYLATION OPERATOR pm1 Eros Garcia RN RN as6 Corrections: (The following items were deleted from the chart) 07:01 06:15 CORONAVIRUS+MR.LAB.BRZ ordered. EDKY EDMS 07:02 06:15 Influenza Screen (A \T\ B)+BA.LAB.BRZ ordered. EDMS EDMS 09:47 09:24 Topher Yuen pm1 pm1 14:38 09:24 pm1 dw
[2021-03-26 10:02] LABS: Blood Morphology Comment NOT SEEN (NOT SEEN); Platelet Estimate ADEQ; White Blood Cell Scan OK (OK)
[2021-03-26 11:16] LABS: Urine Blood Negative (Negative); Urine Glucose Negative (Negative); Urine Protein Negative (Negative); Urine Specific Gravity 1.015 (1.005-1.030)
[2021-03-26 11:34] LABS: Urine Bacteria NONE SEEN /HPF (NONE SEEN); Urine RBC <5 /HPF (NONE SEEN)
--- NOTE | 2021-03-26 15:03 | P.HP ---
Certification for Inpatient Patient admitted to: Inpatient With expected LOS: >2 Midnights Practitioner: I am a practitioner with admitting privileges, knowledge of patient current condition, hospital course, and medical plan of care. Services: Services provided to patient in accordance with Admission requirements found in Title 42 Section 412.3 of the Code of Federal Regulations Patient History Date of Service: 03/26/21 Reason for admission: Shortness of breath History of Present Illness: 70-year-old man with a history of chronic diastolic heart failure, COPD, smoker presented to the emergency department with a complaint of progressive shortness of breath of 2 days duration but became much worse last night. Patient stated he woke up from sleep last night severely short of breath. EMS was called and they found him with oxygen saturation of 80% on room air, in tripod position and diaphoretic. Patient was placed on BiPAP. His checks x-ray in the ED showed pulmonary vascular congestion. Patient also noted to be wheezing. Patient given IV Rocephin and IV steroid and admitted for further management. Allergies No Known Allergies Allergy (Verified 01/13/21 22:24) Home Medications: Gabapentin [Neurontin*] 3 cap PO TID 12/02/16 Aspirin 81 mg PO DAILY 11/10/17 glipiZIDE [Glucotrol] 10 mg PO DAILY 11/10/17 Metformin ER [Glucophage ER*] 1,000 mg PO BID 02/17/18 Aripiprazole [Abilify] 30 mg PO DAILY 08/28/20 Atorvastatin Calcium [Lipitor] 40 mg PO BEDTIME 08/28/20 Losartan Potassium [Cozaar] 100 mg PO DAILY 08/28/20 Rivaroxaban [Xarelto*] 20 mg PO DAILY 6PM 08/28/20 Albuterol Neb [Proventil 0.083% Neb Soln] 2.5 mg NEB [id number] PRN #120 amp 08/29/20 Budesonide/Formoterol Fumarate [Symbicort 160-4.5 Mcg Inhaler] 1 puff IH DAILY PRN 09/17/20 Spironolactone [Aldactone] 25 mg PO DAILY #30 tablet 09/23/20 predniSONE [Prednisone*] 20 mg PO DAILY #5 tab 09/23/20 Amiodarone HCl 100 mg PO DAILY 30 Days #30 tablet 01/14/21 Furosemide [Lasix*] 40 mg PO BID #60 tab 01/14/21 - Past Medical/Surgical History Diabetic: Yes -: Hypertension -: Diabetes mellitus type 2 -: Posttraumatic stress disorder -: Anxiety -: Hepatitis-C -: Hyperlipidemia -: CAD, stent placement x2 -: Obstructive sleep apnea -: Obesity -: Diabetic neuropathy -: History pancreatitis -: COPD, tobacco abuse -: 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 - Family History Father -: Other (see notes) Notes: CHF Mother -: Cancer Notes: breast cancer Sister -: Cancer Notes: colon cancer Brother -: Cancer Notes: throat cancer - Social History Alcohol use: No CD- Drugs: No Caffeine use: Yes Review of Systems Other: Except as documented, all other systems reviewed and negative. Physical Examination - Physical Exam General: Alert, In no apparent distress, Oriented x3 HEENT: Other (BiPAP) Neck: JVD not distended Respiratory: Diminished, Crackles/rales (Mild bibasilar Rales), Expiratory wheezes (Bilateral) Cardiovascular: No edema, Regular rate/rhythm, Normal S1 S2 Capillary refill: <2 Seconds Gastrointestinal: Normal bowel sounds, Soft and benign, Non-distended, No tenderness Musculoskeletal: No swelling, No tenderness Integumentary: No rashes, No cyanosis Neurological: Normal strength at 5/5 x4 extr Lymphatics: No axilla or inguinal lymphadenopathy - Studies Laboratory Data (last 24 hrs) 03/26/21 06:35: PT 17.6 H, INR 1.52, APTT 41.3 H 03/26/21 06:35: WBC 10.90, Hgb 11.7 L, Hct 35.4 L, Plt Count 212 03/26/21 06:35: Sodium 145, Potassium 3.8, BUN 26 H, Creatinine 1.64 H, Glucose 149 H, Total Bilirubin 0.5, AST 9 L, ALT 20, Alkaline Phosphatase 71, Amylase 40, Lipase 81 Assessment and Plan - Problems (Diagnosis) (1) Acute exacerbation of chronic obstructive airways disease Onset Date: 02/18/18 Current Visit: No Status: Acute (2) Acute on chronic diastolic (congestive) heart failure Onset Date: 05/07/17 Current Visit: No Status: Acute (3) Acute respiratory failure with hypoxia Current Visit: No Status: Acute (4) Diabetes mellitus Onset Date: 12/03/16 Current Visit: No Status: Chronic (5) Obesity Onset Date: 11/11/17 Current Visit: No Status: Chronic Qualifiers: Obesity type: due to excess calories Obesity classification: adult class 3 (BMI >= 40) Serious obesity comorbidity presence: with serious comorbidity Body mass index: BMI 40.0-44.9 Qualified Code(s): E66.01 - Morbid (severe) obesity due to excess calories; Z68.41 - Body mass index (BMI) 40.0-44.9, adult (6) Obstructive sleep apnea Onset Date: 11/11/17 Current Visit: No Status: Chronic - Plan Admit to the medical floor. Wean off BiPAP. We will treat CHF exacerbation with IV Lasix. Scheduled bronchodilators for COPD exacerbation. IV steroid. Insulin sliding scale for glucose management. Wean oxygen as tolerated. Continue amiodarone and Xarelto for A. fib. Repeat echocardiogram. - Advance Directives Does patient have a Living Will: No Does patient have a Durable POA for Healthcare: No
[2021-03-26] MEDS ORDERED: ONDANSETRON 4 MG/2 ML VIAL IV PRN (15:54)
[2021-03-26] MEDS: IPRATROPIUM BROM 0.5MG/2.5ML NEB SCH ×2 (16:00→19:40)
[2021-03-26 16:19] VITALS: BMI 35.6
[2021-03-26] MEDS: METHYLPREDNISOLONE 40 MG INJ IV SCH ×2 (17:18→23:33)
[2021-03-26] MEDS: FUROSEMIDE 40 MG/4 ML VIAL IV SCH (17:18)
[2021-03-26] MEDS: INSULIN -REGULAR HUMAN 50 UNIT/0.5 ML ML SQ SCH ×2 (17:18→21:39)
[2021-03-26] MEDS: ALBUTEROL 2.5 MG/3 ML NEB SOL NEB SCH (19:40)
[2021-03-26 20:40] VITALS: O2SAT 94
[2021-03-26 20:49] LABS: Urine Appearance Clear (Clear); Urine Bilirubin Negative (Negative); Urine Blood Negative (Negative); Urine Color Yellow (Yellow); Urine Glucose Trace (Negative); Urine Protein Negative (Negative); Urine Specific Gravity 1.015 (1.005-1.030); Urine Urobilinogen 0.2 mg/dL (0.2-1.0)
[2021-03-26 21:04] LABS: Urine Microscopic Reflex NO UMIC
[2021-03-26] MEDS: ACETAMINOPHEN 500 MG TAB PO PRN (21:56)
[2021-03-27] MEDS: ALBUTEROL 2.5 MG/3 ML NEB SOL NEB SCH ×2 (01:50→08:32)
[2021-03-27] MEDS: IPRATROPIUM BROM 0.5MG/2.5ML NEB SCH ×4 (01:50→11:27)
[2021-03-27] MEDS: METHYLPREDNISOLONE 40 MG INJ IV SCH (05:44)
[2021-03-27] MEDS: ACETAMINOPHEN 500 MG TAB PO PRN (05:44)
[2021-03-27 05:54] LABS: Absolute Lymphocytes (CBC) 0.5 K/uL (0.7-4.9); Basophils % 0.1 % (0-1.3); Hematocrit 32.6 % (39.6-49.0); Lymphocytes % 5.5 % (15.3-44.8); MPV 8.5 fL (7.6-11.3); RBC Red Blood Cell Count 3.79 M/uL (4.33-5.43)
[2021-03-27 06:22] LABS: Magnesium 2.1 mg/dL (1.8-2.4); Phosphorus 2.6 mg/dL (2.5-4.9); Potassium 3.4 mmol/L (3.5-5.1)
[2021-03-27] MEDS ORDERED: INFLUENZA VACCINE (for 6+ mo) 0.5 ML DOSE IMVAC ONE (08:00)
[2021-03-27] MEDS: INSULIN -REGULAR HUMAN 50 UNIT/0.5 ML ML SQ SCH (08:15)
[2021-03-27] MEDS: FUROSEMIDE 40 MG/4 ML VIAL IV SCH (08:16)
[2021-03-27] MEDS ORDERED: ENOXAPARIN 40 MG/0.4 ML SQ SCH (09:00)
[2021-03-27] MEDS ORDERED: POTASSIUM CL SA 10 MEQ TAB PO ONE (09:00)
[2021-03-27] MEDS ORDERED: LOSARTAN POTASSIUM 50 MG TABLET PO SCH (10:30)
[2021-03-27] MEDS ORDERED: SPIRONOLACTONE 25 MG TABLET PO SCH (10:31)
[2021-03-27] MEDS ORDERED: AMIODARONE HCL 200 MG TAB PO SCH (10:31)
--- NOTE | 2021-03-27 10:48 | P.DS ---
Admission Date: 03/26/21 Discharge Date: 03/27/21 Disposition: ROUTINE DISCHARGE Discharge Condition: FAIR Reason for Admission: Shortness of breath - Problems (1) Acute exacerbation of chronic obstructive airways disease Onset Date: 02/18/18 Current Visit: No Status: Acute (2) Acute on chronic diastolic (congestive) heart failure Onset Date: 05/07/17 Current Visit: No Status: Acute (3) Acute respiratory failure with hypoxia Current Visit: No Status: Acute (4) Diabetes mellitus Onset Date: 12/03/16 Current Visit: No Status: Chronic (5) Obesity Onset Date: 11/11/17 Current Visit: No Status: Chronic Qualifiers: Obesity type: due to excess calories Obesity classification: adult class 3 (BMI >= 40) Serious obesity comorbidity presence: with serious comorbidity Body mass index: BMI 40.0-44.9 Qualified Code(s): E66.01 - Morbid (severe) obesity due to excess calories; Z68.41 - Body mass index [BMI] 40.0-44.9, adult (6) Obstructive sleep apnea Onset Date: 11/11/17 Current Visit: No Status: Chronic Brief History of Present Illness: 70-year-old man with a history of chronic diastolic heart failure, COPD, smoker presented to the emergency department with a complaint of progressive shortness of breath of 2 days duration but became much worse last night. Patient stated he woke up from sleep last night severely short of breath. EMS was called and they found him with oxygen saturation of 80% on room air, in tripod position and diaphoretic. Patient was placed on BiPAP. His chest x-ray in the ED showed pulmonary vascular congestion. Patient also noted to be wheezing. Patient given IV Rocephin and IV steroid and admitted for further management. Hospital Course: Patient hospitalized and treated for COPD exacerbation with IV steroid and scheduled bronchodilators. He was also treated for CHF exacerbation with IV Lasix. Patient was rapidly weaned off BiPAP to oxygen by nasal cannula and to room air. He clinically improved more rapidly than expected. Patient is today tolerating room air at rest and with ambulation. His since symptoms have resolved. Patient is discharged with a short course prednisone therapy for COPD exacerbation and antibiotics. Vital Signs/Physical Exam: Temp Pulse Resp BP Pulse Ox 97.2 F 95 H 19 172/77 H 95 03/27/21 04:00 03/27/21 08:16 03/27/21 04:00 03/27/21 08:16 03/27/21 04:00 General: Alert, In no apparent distress, Oriented x3 HEENT: Mucous membr. moist/pink Neck: Supple, JVD not distended Respiratory: Clear to auscultation bilaterally, Normal air movement Cardiovascular: No edema, Normal S1 S2 Laboratory Data at Discharge: WBC 10.10 K/uL (4.3-10.9) 03/27/21 05:30 Hgb 11.0 g/dL (13.6-17.9) L 03/27/21 05:30 Hct 32.6 % (39.6-49.0) L 03/27/21 05:30 Plt Count 188 K/uL (152-406) 03/27/21 05:30 PT 17.6 SECONDS (9.5-12.5) H 03/26/21 06:35 INR 1.52 03/26/21 06:35 APTT 41.3 SECONDS (24.3-36.9) H 03/26/21 06:35 Sodium 143 mmol/L (136-145) 03/27/21 05:30 Potassium 3.4 mmol/L (3.5-5.1) L 03/27/21 05:30 BUN 31 mg/dL (7-18) H 03/27/21 05:30 Creatinine 1.42 mg/dL (0.55-1.3) H 03/27/21 05:30 Glucose 175 mg/dL (74-106) H 03/27/21 05:30 Phosphorus 2.6 mg/dL (2.5-4.9) 03/27/21 05:30 Magnesium 2.1 mg/dL (1.8-2.4) 03/27/21 05:30 Total Bilirubin 0.5 mg/dL (0.2-1.0) 03/26/21 06:35 AST 9 U/L (15-37) L 03/26/21 06:35 ALT 20 U/L (12-78) 03/26/21 06:35 Alkaline Phosphatase 71 U/L (45-117) 03/26/21 06:35 Troponin I 0.02 ng/mL (0.0-0.045) 03/27/21 00:40 Triglycerides 80 mg/dL (<150) 03/27/21 05:30 Cholesterol 198 mg/dL (<200) 03/27/21 05:30 HDL Cholesterol 32 mg/dL (40-60) L 03/27/21 05:30 Cholesterol/HDL Ratio 6.19 03/27/21 05:30 Amylase 40 U/L (25-115) 03/26/21 06:35 Lipase 81 U/L (73-393) 03/26/21 06:35 Home Medications: Gabapentin [Neurontin*] 3 cap PO TID 12/02/16 Aspirin 81 mg PO DAILY 11/10/17 glipiZIDE [Glucotrol] 10 mg PO DAILY 11/10/17 Metformin ER [Glucophage ER*] 1,000 mg PO BID 02/17/18 Aripiprazole [Abilify] 30 mg PO DAILY 08/28/20 Atorvastatin Calcium [Lipitor] 40 mg PO BEDTIME 08/28/20 Losartan Potassium [Cozaar] 100 mg PO DAILY 08/28/20 Rivaroxaban [Xarelto*] 20 mg PO DAILY 6PM 08/28/20 Albuterol Neb [Proventil 0.083% Neb Soln] 2.5 mg NEB [id number] PRN #120 amp 08/29/20 Budesonide/Formoterol Fumarate [Symbicort 160-4.5 Mcg Inhaler] 1 puff IH DAILY PRN 09/17/20 Spironolactone [Aldactone] 25 mg PO DAILY #30 tablet 09/23/20 Amiodarone HCl 100 mg PO DAILY 30 Days #30 tablet 01/14/21 Furosemide [Lasix*] 40 mg PO BID #60 tab 01/14/21 levoFLOXacin [Levaquin] 750 mg PO DAILY #5 tab 03/27/21 predniSONE [Deltasone] 40 mg PO DAILY #10 tab 03/27/21 New Medications: levoFLOXacin [Levaquin] 750 mg PO DAILY #5 tab predniSONE [Deltasone] 40 mg PO DAILY #10 tab Diet: ADA Activity: Ad margarita Followup: NONE,NONE [Primary Care Provider] - 1 Week Time spent managing pt's care (in minutes): 34
[2021-03-27 12:28] VITALS: BP 175/73; TEMP 97.9
[2021-03-27] MEDS ORDERED: RIVAROXABAN 10 MG TABLET PO SCH (18:00)
--- NOTE | 2021-03-29 08:13 | EKG ---
Test Date: 2021-03-26 Test Time: 05:55:58 Sales Intern: MICHELL MEASUREMENT RESULTS: Intervals: Rate: 94 MD: 196 QRSD: 124 QT: 446 QTc: 557 [place]: P: 30 MD: 196 QRS: -71 T: 243 INTERPRETIVE STATEMENTS: Sinus rhythm with premature atrial complexes with aberrant conduction Left axis deviation Left ventricular hypertrophy with QRS widening ST & T wave abnormality, consider inferior ischemia ST & T wave abnormality, consider anterolateral ischemia Abnormal ECG Compared to ECG 01/13/2021 01:15:59 Atrial premature complex(es) now present Aberrant conduction of supraventricular beat(s) now present ST (T wave) deviation now present Atrial fibrillation no longer present T-wave abnormality no longer present Possible ischemia still present Electronically Signed On 03-29-21 08:04:22 DE ICER FINISHER by Jose Nunn
== END 2021-03-27 11:51 | disposition home or self-care (01) ==
LOC: ER 05:53 → INTOOBSV 14:46 → ERHOLD 14:46 → 2ND 15:34
PROVIDERS: ADMIT Internal Medicine; ATTEND Internal Medicine
DX: J44.1 Chronic obstructive pulmonary disease with (acute) exacerbation (principal); I11.0 Hypertensive heart disease with heart failure; I50.33 Acute on chronic diastolic (congestive) heart failure; J96.01 Acute respiratory failure with hypoxia; I25.10 Atherosclerotic heart disease of native coronary artery without angina pectoris; E11.9 Type 2 diabetes mellitus without complications; E66.01 Morbid (severe) obesity due to excess calories; Z68.35 Body mass index [BMI] 35.0-35.9, adult; G47.33 Obstructive sleep apnea (adult) (pediatric); Z95.5 Presence of coronary angioplasty implant and graft; Z20.822 Contact with and (suspected) exposure to COVID-19
CPT/HCPCS: 96365; 93005; 87040 ×2; 85025 ×2; 80048 ×2; 36415; 82150; 83735; 82550; 84100; 85610; 80061; 82947 ×3; 80076; 83605; 85730; 84484 ×4; 82553; 83690; 84145; 83880; 0240U; 71045; 94640 ×3; 82805; 94760 ×3; 94660; 96375; 99285; 96366; J1940 ×3; J1650; J2930; J2920 ×3; G0378 ×3; 81003; 81015

== ENCOUNTER 2021-04-19 03:08 | Inpatient (IN) | payer OTHER ==
[2021-04-19] MEDS ORDERED: FUROSEMIDE 100 MG/10 ML VIAL IV ONE (03:38)
--- NOTE | 2021-04-19 04:02 | ER ---
Nurse's Notes [facility] Name: Ludwin Hsu Age: 70 yrs Sex: Male : 1950 Arrival Date: 04/19/2021 Time: 03:08 Bed 20 Private MD: Diagnosis: Acute systolic (congestive) heart failure;Acute respiratory failure;Persistent atrial fibrillation Presentation: 04/19 03:15 Chief complaint: EMS states: they were toned out for report of pt with difficulty bb breathing pt has hx of CHF on their arrival O2 was 84% he was put on CPAP an IV was started and pt was given solu-medrol 15 mg sats improved to 99%. Coronavirus screen: difficulty breathing, Client presents with at least one sign or symptom that may indicate coronavirus-19. Standard/surgical mask placed on the client. Ebola Screen: No symptoms or risks identified at this time. Initial Sepsis Screen: Does the patient meet any 2 criteria? RR > 20 per min. HR > 90 bpm. Yes Does the patient have a suspected source of infection? No. Patient's initial sepsis screen is negative. Risk Assessment: Do you want to hurt yourself or someone else? Patient reports no desire to harm self or others. Onset of symptoms was April 19, 2021. 03:15 Method Of Arrival: EMS: [facility] bb 03:15 Acuity: NGUYEN 2 bb Historical: - Allergies: 03:19 NKA; bb - Home Meds: 03:19 albuterol sulfate 90 mcg/actuation Inhl HFAA 1 puff every 6 hours [Active]; amiodarone bb 200 mg Oral tab [Active]; aspirin 81 mg Oral chew 1 tab once daily [Active]; atorvastatin 40 mg Oral tab 1 tab once daily [Active]; bupropion HCl 100 mg Oral tab daily [Active]; carvedilol 25 mg Oral tab 1 tab 2 times per day [Active]; clopidogrel 75 mg Oral tab 1 tab once daily [Active]; furosemide 80 mg Oral tab 1 tab once daily [Active]; gabapentin 400 mg Oral cap 1 cap 3 times per day [Active]; glipizide 5 mg Oral tr24 2 tabs once daily [Active]; losartan 50 mg Oral tab 1 tab once daily [Active]; metformin 1,000 mg Oral tab 1 tab 2 times per day [Active]; Prednisone Oral [Active]; Xarelto 20 mg Oral tab 1 tab once daily [Active]; - PMHx: 03:19 arteriosclerosis; CHF; chronic back pain; COPD; Diabetes - NIDDM; Hypertension; kidney bb disease; malignant neoplasm of epidimyis; Myocardial infarction; Pancreatitis; PTSD; tinnitus; - Immunization history:: Adult Immunizations up to date, Client reports receiving the 2nd dose of the Covid vaccine. - Social history:: Smoking status: unknown. Screenin:54 Abuse screen: Denies threats or abuse. Denies injuries from another. Nutritional sm5 screening: No deficits noted. Tuberculosis screening: No symptoms or risk factors identified. Fall Risk No fall in past 12 months (0 pts). No secondary diagnosis (0 pts). IV access (20 points). Ambulatory Aid- None/Bed Rest/Nurse Assist (0 pts). Gait- Normal/Bed Rest/Wheelchair (0 pts) Mental Status- Oriented to own ability (0 pts). Total [place] Fall Scale indicates No Risk (0-24 pts). Assessment: 03:55 General: Appears uncomfortable, Behavior is appropriate for age. Pain: Denies pain. sm5 Neuro: Level of Consciousness is awake, alert, Oriented to person, place, time, situation. Cardiovascular: Rhythm is atrial fibrillation. Respiratory: Reports shortness of breath cough that is Airway is patent Trachea midline Respiratory effort is even, labored. GI: No deficits noted. : No deficits noted. Vital Signs: 03:15 BP 149 / 101; Pulse 106; Resp 29 S; Temp 97(A); Pulse Ox 92% on BiPAP; Weight 117.93 kg bb (R); Height 6 ft. 0 in. (182.88 cm) (R); 03:57 BP 129 / 87; Pulse 97; Resp 26; Pulse Ox 100% ; sm5 03:15 Body Mass Index 35.26 (117.93 kg, 182.88 cm) bb ED Course: 03:08 Patient arrived in ED. es 03:12 Sammy Cook PA is PHCP. jr8 03:12 Jose E Suarez MD is Attending Physician. jr8 03:14 Leslee Restrepo, STEPHEN is Primary Nurse. sm5 03:15 Jj Ramirez is Hospitalizing Provider. jr8 03:19 Triage completed. bb 03:19 Arm band placed on Patient placed in an exam room, on a stretcher, on oxygen, on bb residential monitor, on pulse oximetry, RT at bedside for placement of Bipap. 03:54 Patient has correct armband on for positive identification. Placed in gown. Bed in low sm5 position. Call light in reach. Side rails up X2. 03:56 No provider procedures requiring assistance completed. Maintain EMS IV. Dressing sm5 intact. Good blood return noted. Site clean \\T\\ dry. Gauge \\T\\ site: 20G R AC. 04:03 COVID-19 SARS RT PCR (Document "Date of Onset" if Symptomatic) Sent. sm5 04:03 Basic Metabolic Panel Sent. sm5 04:03 CBC with Diff Sent. sm5 04:03 LFT's Sent. sm5 04:03 NT PRO-BNP Sent. sm5 04:03 Magnesium Sent. sm5 04:04 PT-INR Sent. sm5 04:04 Troponin (emerg Dept Use Only) Sent. sm5 04:04 BIPAP Sent. sm5 04:04 ABG Sent. sm5 06:09 Patient admitted, IV remains in place. 5 Administered Medications: 03:45 Drug: Lasix (furosemide) 60 mg Route: IVP; Site: right antecubital; 5 Output: 05:14 Urine: 400ml (Voided); Total: 400ml. sm5 06:08 Urine: 475ml (Voided); Total: 875ml. 5 Outcome: 03:16 Decision to Hospitalize by Provider. jrNoam 06:08 Admitted to Tele accompanied by tech, via stretcher, with oxygen, with chart. sm5 06:08 Condition: stable 06:08 Instructed on the need for admit. 06:09 Patient left the ED. 5 Signatures: Leida Rendon Brenda RN RN bb Sammy Cook PA PA jr8 Leslee Restrepo RN RN 5
--- NOTE | 2021-04-19 04:02 | EDPHYS ---
Physician Documentation [facility] Name: Ludwin sHu Age: 70 yrs Sex: Male : 1950 Arrival Date: 04/19/2021 Time: 03:08 Bed 20 Private MD: ED Physician Jose E Suarez HPI: 04/19 03:12 This 70 yrs old Male presents to ER via Unassigned with complaints of jr8 Shortness of breath. 03:12 The patient has shortness of breath at rest. Onset: The symptoms/episode began/occurred jr8 acutely, today. Duration: The symptoms are continuous, and are steadily getting worse. The patient's shortness of breath has no apparent modifying factors. Associated signs and symptoms: The patient has no apparent associated signs or symptoms. Severity of symptoms: At their worst the symptoms were moderate in the emergency department the symptoms have improved mildly. The patient has experienced similar episodes in the past, a few times. The patient has not recently seen a physician. Patient stated that while he was sleeping had sudden onset shortness of breath. History of CHF and COPD. EMS stated that he was 84% RA, cool, and diaphoretic upon there arrival. Patient was put on BIPAP and given solumedrol prior to arrival. Patient now 98% on BIPAP in less distress . Historical: - Allergies: 03:19 NKA; bb - Home Meds: 03:19 albuterol sulfate 90 mcg/actuation Inhl HFAA 1 puff every 6 hours [Active]; amiodarone bb 200 mg Oral tab [Active]; aspirin 81 mg Oral chew 1 tab once daily [Active]; atorvastatin 40 mg Oral tab 1 tab once daily [Active]; bupropion HCl 100 mg Oral tab daily [Active]; carvedilol 25 mg Oral tab 1 tab 2 times per day [Active]; clopidogrel 75 mg Oral tab 1 tab once daily [Active]; furosemide 80 mg Oral tab 1 tab once daily [Active]; gabapentin 400 mg Oral cap 1 cap 3 times per day [Active]; glipizide 5 mg Oral tr24 2 tabs once daily [Active]; losartan 50 mg Oral tab 1 tab once daily [Active]; metformin 1,000 mg Oral tab 1 tab 2 times per day [Active]; Prednisone Oral [Active]; Xarelto 20 mg Oral tab 1 tab once daily [Active]; - PMHx: 03:19 arteriosclerosis; CHF; chronic back pain; COPD; Diabetes - NIDDM; Hypertension; kidney bb disease; malignant neoplasm of epidimyis; Myocardial infarction; Pancreatitis; PTSD; tinnitus; - Immunization history:: Adult Immunizations up to date, Client reports receiving the 2nd dose of the Covid vaccine. - Social history:: Smoking status: unknown. ROS: 03:12 Eyes: Negative for injury, pain, redness, and discharge, ENT: Negative for injury, jr8 pain, and discharge, Neck: Negative for injury, pain, and swelling, Cardiovascular: Negative for chest pain, palpitations, and edema, Abdomen/GI: Negative for abdominal pain, nausea, vomiting, diarrhea, and constipation, Back: Negative for injury and pain, MS/Extremity: Negative for injury and deformity, Skin: Negative for injury, rash, and discoloration, Neuro: Negative for headache, weakness, numbness, tingling, and seizure. 03:12 Respiratory: Positive for dyspnea on exertion, orthopnea, shortness of breath. Exam: 03:12 Eyes: Pupils equal round and reactive to light, extra-ocular motions intact. Lids and jr8 lashes normal. Conjunctiva and sclera are non-icteric and not injected. Cornea within normal limits. Periorbital areas with no swelling, redness, or edema. ENT: Nares patent. No nasal discharge, no septal abnormalities noted. Tympanic membranes are normal and external auditory canals are clear. Oropharynx with no redness, swelling, or masses, exudates, or evidence of obstruction, uvula midline. Mucous membranes moist. Neck: Trachea midline, no thyromegaly or masses palpated, and no cervical lymphadenopathy. Supple, full range of motion without nuchal rigidity, or vertebral point tenderness. No Meningismus. Abdomen/GI: Soft, non-tender, with normal bowel sounds. No distension or tympany. No guarding or rebound. No evidence of tenderness throughout. Back: No spinal tenderness. No costovertebral tenderness. Full range of motion. Skin: Warm, dry with normal turgor. Normal color with no rashes, no lesions, and no evidence of cellulitis. MS/ Extremity: Pulses equal, no cyanosis. Neurovascular intact. Full, normal range of motion. Neuro: Awake and alert, GCS 15, oriented to person, place, time, and situation. Cranial nerves II-XII grossly intact. Motor strength 5/5 in all extremities. Sensory grossly intact. Cerebellar exam normal. Normal gait. 03:12 Cardiovascular: Rate: tachycardic, Rhythm: irregularly irregular, Pulses: Pulses are 2+ in right radial artery and left radial artery. Heart sounds: normal, normal S1and S2, no S3 or S4, no murmur, no rub, no gallop, Edema: is not appreciated, JVD: is not appreciated. 03:12 Respiratory: moderate respiratory distress is noted, Respirations: labored breathing, tachypnea, Breath sounds: rales, that are moderate, are located in both bases. 03:45 ECG was reviewed by the Attending Physician. [facility] Vital Signs: 03:15 BP 149 / 101; Pulse 106; Resp 29 S; Temp 97(A); Pulse Ox 92% on BiPAP; Weight 117.93 kg bb (R); Height 6 ft. 0 in. (182.88 cm) (R); 03:57 BP 129 / 87; Pulse 97; Resp 26; Pulse Ox 100% ; sm5 03:15 Body Mass Index 35.26 (117.93 kg, 182.88 cm) bb MDM: 03:12 Patient medically screened. [facility] 03:12 Data reviewed: vital signs, nurses notes, lab test result(s), EKG, radiologic studies, [facility] plain films. Data interpreted: Pulse oximetry: on BIPAP is 100 %. Interpretation: acceptable. Counseling: I had a detailed discussion with the patient and/or guardian regarding: the historical points, exam findings, and any diagnostic results supporting the discharge/admit diagnosis, lab results, radiology results, the need for further work-up and treatment in the hospital. 04/19 03:12 Order name: Basic Metabolic Panel [facility] 04/19 03:12 Order name: CBC with Diff [facility] 04/19 03:12 Order name: LFT's [facility] 04/19 03:12 Order name: Magnesium [facility] 04/19 03:12 Order name: NT PRO-BNP [facility] 04/19 03:12 Order name: PT-INR [facility] 04/19 03:12 Order name: Troponin (emerg Dept Use Only) [facility] 04/19 03:12 Order name: ABG [facility] 04/19 03:43 Order name: COVID-19 SARS RT PCR (Document "Date of Onset" if Symptomatic) 04/19 04:13 Order name: ABG Arterial Blood Gas; Complete Time: 15:14 [facility] 04/19 04:22 Order name: CBC with Automated Diff; Complete Time: 15:14 [facility] 04/19 04:26 Order name: Protime (+INR); Complete Time: 15:14 [facility] 04/19 04:36 Order name: Basic Metabolic Panel; Complete Time: 15:14 [facility] 04/19 04:36 Order name: Liver (Hepatic) Function; Complete Time: 15:14 [facility] 04/19 03:12 Order name: XRAY Chest (1 view) [facility] 04/19 03:12 Order name: EKG; Complete Time: 04:03 [facility] 04/19 03:12 Order name: Cardiac monitoring; Complete Time: 03:14 [facility] 04/19 03:12 Order name: EKG - Nurse/Tech; Complete Time: 03:33 [facility] 04/19 03:12 Order name: IV Saline Lock; Complete Time: 03:14 [facility] 04/19 03:12 Order name: Labs collected and sent; Complete Time: 03:34 [facility] 04/19 03:12 Order name: O2 Per Protocol; Complete Time: 03:14 [facility] 04/19 03:12 Order name: O2 Sat Monitoring; Complete Time: 03:14 [facility] 04/19 03:12 Order name: BIPAP [facility] 04/19 04:36 Order name: Troponin (Emerg Dept Use Only); Complete Time: 15:14 [facility] 04/19 04:36 Order name: NT PRO-BNP; Complete Time: 15:14 [facility] 04/19 04:36 Order name: Magnesium; Complete Time: 15:14 [facility] 04/19 04:44 Order name: SARS-COV-2 RT PCR; Complete Time: 15:14 [facility] EC:45 Rate is 93 beats/min. Rhythm is irregularly irregular. QRS [place] is Normal. NE interval [place] is normal. QRS interval is normal. QT interval is normal. No Q waves. T waves are Normal. No ST changes noted. Clinical impression: Atrial Fibrillation. Interpreted by me. Reviewed by me. Administered Medications: 03:45 Drug: Lasix (furosemide) 60 mg Route: IVP; Site: right antecubital; sm5 Disposition: 03:46 Co-signature as Attending Physician, Jose E Suarez MD I agree with the assessment and sandy plan of care. Disposition Summary: 04/19/21 03:16 Hospitalization Ordered Hospitalization Status: Inpatient Admission 8 Provider: Jj Ramirez jr Location: Telemetry/MedSurg (Inpatient) 8 Condition: Stable jr8 Problem: new jr8 Symptoms: have improved jr8 Bed/Room Type: Standard [facility] Room Assignment: 218(04/19/21 05:04) cg Diagnosis - Acute systolic (congestive) heart failure jr8 - Acute respiratory failure jr8 - Persistent atrial fibrillation sandy Forms: - Medication Reconciliation Form jr8 - SBAR form jr8 Signatures: Dispatcher [employer] EDJose E Ghosh MD MD cha Ballard, Brenda RN Sammy Lizarraga PA PA jr8 Mimi Nunez RN RN cg Mazur, Sarah, RN RN sm5 Corrections: (The following items were deleted from the chart) 05:04 03:16 jr8 cg
--- OUTSIDE RECORDS SUMMARY | 2021-04-19 04:08 | XMS REPORT | Continuity of Care Document ---
:1950 Author Organization [facility] t Address [address] Jean Baptiste. [address] [place] [address] Care Team Providers Name Role Phone [place], Morteza Agnes [facility] Primary Care Physician [phone] Isa Monreal Attending Clinician Unavailable SHERI K.HKhadar Attending Clinician Unavailable SHERRY Attending Clinician Unavailable Sheri ESCOTO, K.H. Attending Clinician Doctor Unassigned, Name Attending Clinician Unavailable JAQUELIN Attending Clinician Unavailable Asha GUZMÁN Attending Clinician Unavailable Eloisa LYMAN Attending Clinician Unavailable JUAN FRANCISCO SÁNCHEZ Attending Clinician Unavailable Isa Monreal Admitting Clinician Unavailable Eloisa LYMAN Admitting Clinician Unavailable JAUN FRANCISCO SÁNCHEZ Admitting Clinician Unavailable Payers Payer Name Policy Type Policy Number Effective Date Expiration Date Eloisa DAVID [id number] 2009 ADMINISTRATION 00:00:00 Problems Condition Condition Condition Status Onset Resolution Last Treating Co mments Source Name Details Category Date Date Treatment Clinician Date Hx of CABG Hx of CABG Disease Active U nivers 9-28 ity of 00:00: [place] 00 Medical Branch Persistent Persistent Disease Active U nivers [...] Active Overview: [facility] artery artery - PCI - disease disease 00:00: 2016- on Medica l 00 plavix / Center ACB x 3: IBRAHIM-> LAD, SVG-> OM1, SVG-> OM2 Diabetes Diabetes Disease Active Overview: [facility] I [facility] mellitus mellitus - oral meds Holly es - 00:00: including Medical 00 metformin Center Hypertensi Hypertensi Disease Active [facility]-06 [facility] - [facility]: [place] [address] Center Hepatitis Hepatitis Disease Active 2006-05 Overview: Univers 0-18 Formattin ity of 00:00: g of this [place] note Medical might be Branch different from the original. 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 e with Center CPAP Current Current Disease Active MELY Monahan smoker smoker [facility] Allergies, Adverse Reactions, Alerts Allergy Allergy Status Severity Reaction(s) Onset Inactive Treating Comm ents Source Name Type Date Date Clinician No Known DA Active U [facility] All[facility]ie 08-12 [facility] 00:00: [address] No Known DA Active U [facility] Allergie 08-12 [facility] 00:00: [address] NO KNOWN Drug Active [facility] ALLERGIE Class ity of S [facility] Social History Social Habit Start Date Stop Date Quantity Comments Source Exposure to Not sure [facility] SARS-CoV-2 (event) [facility] Cigarettes smoked 2021-02-23 2021-02-23 Univers ity of current (pack per 00:00:00 00:00:00 ) - Reported Branch Tobacco use and 2021-02-23 2021-02-23 Never used Universit y of exposure 00:00:00 00:00:00 [facility] Cigarette 2018-01-22 2018-01-22 MELY Guido - pack-years 00:00:00 00:00:00 [facility] Alcohol intake 2018-01-22 2018-01-22 Current MELY Curtis es - 00:00:00 00:00:00 non-drinker of [facility] nter alcohol (finding) Sex Assigned At [birth year] Universit y of 00:00:00 00:00:00 [facility] Smoking Status Start Date Stop Date Source Current every day smoker 2021-02-23 00:00:00 Uni versity of [facility] Medications Ordered Filled Start Stop Current Ordering [...] mouth 2 ity of tablet 13:23: (two) [place] 23 times Medical daily with Branch meals. carvedilol 2020-05 Yes 25mg Take 25 mg U nivers 25 mg 0-21 by mouth 2 ity of tablet 13:23: (two) [place] 23 times Medical daily with Branch meals. carvedilol 2020-05 Yes 25mg Take 25 mg U nivers 25 mg 0-21 by mouth 2 ity of tablet 13:23: (two) [place] 23 times Medical daily with Branch meals. carvedilol 2020-05 Yes 25mg Take 25 mg U nivers 25 mg 0-21 by mouth 2 ity of tablet 13:23: (two) [place] 23 times Medical daily with Branch meals. carvedilol 2020-05 Yes 25mg Take 25 mg U nivers 25 mg 0-21 by mouth 2 ity of tablet 13:23: (two) [place] 23 times Medical daily with Branch meals. rivaroxaban 2020-05 Yes Take by Un emilia 20 mg 0-21 mouth ity of tablet 13:23: daily. [place] [address] Medical Branch rivaroxaban 2020-05 Yes Take by Un emilia 20 mg 0-21 mouth ity of tablet 13:23: daily. [place] [address] Medical Branch rivaroxaban 2020-05 Yes Take by Un emilia 20 mg 0-21 mouth ity of tablet 13:23: daily. [place] [address] Medical Branch rivaroxaban 2020-05 Yes Take by Un emilia 20 mg 0-21 mouth ity of tablet 13:23: daily. [place] [address] Medical Branch rivaroxaban 2020-05 Yes Take by Un emilia 20 mg 0-21 mouth ity of tablet 13:23: daily. [place] [address] Medical Branch losartan 2020-05 Yes 100mg Take [...] by mouth ity of tablet 13:23: at [place] 08 bedtime. Medical Branch atorvastati 2020-05 Yes 40mg Take 40 mg Univers n 40 mg 0-21 by mouth ity of tablet 13:23: at [place] 08 bedtime. Medical Branch atorvastati 2020-05 Yes 40mg Take 40 mg Univers n 40 mg 0-21 by mouth ity of tablet 13:23: at [place] 08 bedtime. Medical Branch atorvastati 2020-05 Yes 40mg Take 40 mg Univers n 40 mg 0-21 by mouth ity of tablet 13:23: at [place] 08 bedtime. Medical Branch atorvastati 2020-05 Yes 40mg Take 40 mg Univers n 40 mg 0-21 by mouth ity of tablet 13:23: at [place] 08 bedtime. Medical Branch aspirin 81 2020-05 Yes 81mg Take 81 mg U nivers mg EC 0-21 by mouth ity of tablet 13:23: daily. Medical Branch aspirin 81 2020-05 Yes 81mg Take 81 mg U nivers mg EC 0-21 by mouth ity of tablet 13:23: daily. [place] [address] Medical Branch aspirin 81 2020-05 Yes 81mg Take 81 mg U nivers mg EC 0-21 by mouth ity of tablet 13:23: daily. [place] [address] Medical Branch aspirin 81 2020-05 Yes 81mg Take 81 mg U nivers mg EC 0-21 by mouth ity of tablet 13:23: daily. [place] [address] Medical Branch aspirin 81 2020-05 Yes 81mg Take 81 mg U nivers mg EC 0-21 by mouth ity of tablet 13:23: daily. [place] [address] Medical Branch amiodarone 2020-05 Yes 100mg Take [...] by ity of capsule 11:28: mouth 3 [place] 41 (three) Medical times Branch daily. metFORMIN Yes 1000mg Take 1,000 Univers 1,000 mg 9-28 mg by ity of tablet 11:28: mouth 2 [place] 41 (two) Medical times Branch daily with meals. ARIPiprazol Yes 30mg Take 30 mg Univers e 30 mg 9-28 by mouth ity of tablet 11:28: daily. [address] glipiZIDE 2020-0 Yes 10mg Take 10 mg Un emilia 10 mg 9-28 by mouth ity of tablet 11:28: daily. [address] gabapentin 2021-0 Yes 1200mg Take 1,200 Univers 400 mg 9-28 mg by ity of capsule 11:28: mouth 3 [place] [address] (three) Medical times Alpine daily. metFORMIN 2021-0 Yes 1000mg Take 1,000 Univers 1,000 mg 9-28 mg by ity of tablet 11:28: mouth 2 [place] [address] (two) Medical times Alpine daily with meals. ARIPiprazol 2021-0 Yes 30mg Take 30 mg Univers e 30 mg 9-28 by mouth ity of tablet 11:28: daily. [address] glipiZIDE 2020-0 Yes 10mg Take 10 mg Un emilia 10 mg 9-28 by mouth ity of tablet 11:28: daily. [address] gabapentin 2020-0 Yes 1200mg Take 1,200 Univers 400 mg 9-28 mg by ity of capsule 11:28: mouth 3 [place] [address] (three) Medical times Alpine daily. metFORMIN 1-0 Yes 1000mg Take 1,000 Univers 1,000 mg 9-28 mg by ity of tablet 11:28: mouth 2 [place] [address] (two) Medical times Alpine daily with meals. ARIPiprazol 1-0 Yes 30mg Take 30 mg Univers e 30 mg 9-28 by mouth ity of tablet 11:28: daily. [address] glipiZIDE 2020-0 Yes 10mg Take 10 mg Un emilia 10 mg 9-28 by mouth ity of tablet 11:28: daily. [address] gabapentin 2020-0 Yes 1200mg Take 1,200 Univers 400 mg 9-28 mg by ity of capsule 11:28: mouth 3 [place] [address] (three) Medical times Alpine daily. metFORMIN 2021-0 Yes 1000mg Take 1,000 Univers 1,000 mg 9-28 mg by ity of tablet 11:28: mouth 2 [place] [address] (two) Medical times Alpine daily with meals. ARIPiprazol 2021-0 Yes 30mg Take 30 mg Univers e 30 mg 9-28 by mouth ity of tablet 11:28: daily. [address] glipiZIDE 2021-0 Yes 10mg Take 10 mg Un emilia 10 mg 9-28 by mouth ity of tablet 11:28: daily. [address] gabapentin Yes 1200mg Take 1,200 Univers 400 mg 9-28 mg by ity of capsule 11:28: mouth 3 [place] [address] (three) Medical times Branch daily. metFORMIN Yes 1000mg Take 1,000 Univers 1,000 mg 9-28 mg by ity of tablet 11:28: mouth 2 [place] [address] (two) Medical times Alpine daily with meals. ARIPiprazol Yes 30mg Take 30 mg Univers e 30 mg 9-28 by mouth ity of tablet 11:28: daily. [address] glipiZIDE Yes 10mg Take 10 mg Un emilia 10 mg 9-28 by mouth ity of tablet 11:28: daily. [address] XANAX 1 MG Yes 3 tabs Unive rs ORAL TAB 8-12 daily ity of 09:33: [address] XANAX 1 MG Yes 3 tabs Unive rs ORAL TAB 8-12 daily ity of 09:33: [address] XANAX 1 MG Yes 3 tabs Unive rs ORAL TAB 8-12 daily ity of 09:33: [address] XANAX 1 MG Yes 3 tabs Unive rs ORAL TAB 8-12 daily ity of 09:33: [address] XANAX 1 MG Yes 3 tabs Unive rs ORAL TAB 8-12 daily ity of 09:33: [address] carvedilol Yes 12.5mg Take 12.5 [facility] [...] by mouth [facility] - tablet 10:15: daily. [address] esomeprazol 2018-0 Yes 20mg QD Take [address] [facility] (NEXIUM) 9-20 by mouth [facility] - 20 MG 10:15: daily. Medical capsule [facility] gabapentin 2018-0 Yes 1200mg [id number] Take 1,[address] (NEURONTIN) 9-20 [id number] mg by L ukes - 600 MG [...] capsule 53 Center gabapentin 2018-0 Yes 1200mg Q.[id number] Take 1,[address] (NEURONTIN) 9-20 [id number] mg by L ukes - 600 MG [...] Ordered Filled Immunization Date Status Comments [facility] e Immunization Name Name SARS-COV-2 COVID-19 2020-07-23 Completed Unive rsity of PFIZER VACCINE 00:00:00 [facility] SARS-COV-2 COVID-19 2020-07-23 Completed Unive rsity of PFIZER VACCINE 00:00:00 [facility] SARS-COV-2 COVID-19 2020-07-23 Completed Unive rsity of PFIZER VACCINE 00:00:00 [facility] SARS-COV-2 COVID-19 2020-07-23 Completed Unive rsity of PFIZER VACCINE 00:00:00 [facility] SARS-COV-2 COVID-19 2020-07-23 Completed Unive rsity of PFIZER VACCINE 00:00:00 [facility] SARS-COV-2 COVID-19 2020-07-02 Completed Unive rsity of PFIZER VACCINE 00:00:00 [facility] SARS-COV-2 COVID-19 2020-07-02 Completed Unive rsity of PFIZER VACCINE 00:00:00 [facility] SARS-COV-2 COVID-19 2020-07-02 Completed Unive rsity of PFIZER VACCINE 00:00:00 [facility] SARS-COV-2 COVID-19 2020-07-02 Completed Unive rsity of PFIZER VACCINE 00:00:00 [facility] SARS-COV-2 COVID-19 2020-07-02 Completed Unive rsity of PFIZER VACCINE 00:00:00 [facility] Vital Signs Vital Name Observation Time Observation Value Comments Source Systolic blood 2021-02-23 18:11:00 116 mm[Hg] Univer sity of [place] pressure [facility] Diastolic blood 2021-02-23 18:11:00 76 mm[Hg] Unive rsity of [facility] Heart rate 2021-02-23 18:11:00 76 /min [facility] Body weight 2021-02-23 18:11:00 117.028 kg [facility] BMI 2021-02-23 18:11:00 34.99 kg/m2 [facility] Oxygen saturation 2021-02-23 18:11:00 96 /min [facility] in Arterial blood [facility] Br anch by Pulse oximetry Procedures Procedure Date / Time Performing Clinician Source Performed MEDICATION CORRESPONDENCE 2021-03-03 05:01:00 Doctor Irlandaigned, [facility] [place] [facility] Branch AUTHORIZATION TO RELEASE 2021-02-23 05:01:00 Doctor Unassigned, [facility] PHI TO [facility] Name Medical Branch Plan of Care Planned Activity Planned Date Details Comments Source Future Scheduled 2021-01-[address] [facility] - Test 00:00:00 (Season Ended) [code = [facility] INFLUENZA VACCINE (Season Ended)] Future Scheduled [...] 00:00:00 measurement Medical Center (procedure) [code = 97197730] Future Scheduled 2018-07-[address] [facility] - Test 00:00:00 measurement Medical Center (procedure) [code = 65681229] Future Scheduled 2014-11-[address] [...] 00:00:00 (1 of 1 - Medical Center [id number] PCV13) [code = PNEUMOCOCCAL 65+ YRS (1 of 1 - [id number] PCV13)] Future Scheduled 2013 PNEUMOCOCCAL 65+ YRS [facility] - Test 00:00:00 (1 of 1 - Medical Center [id number] PCV13) [code = PNEUMOCOCCAL 65+ YRS (1 of 1 - [id number]_Lmlvxaw PCV13)] Future Scheduled 1998 SHINGLES VACCINES (1 [...] 00:00:00 examination Medical Center (regime/therapy) [code = 016788727] Future Scheduled 1958 Urine screening for [facility] - Test 00:00:00 protein (procedure) Medical Center [code = 611747642] Future Scheduled 1958 DIABETIC EYE EXAM [facility] - Test 00:00:00 [code = DIABETIC EYE Medical Center EXAM] Future Scheduled [address] [facility] - Test 00:00:00 examination Medical Center (regime/therapy) [code = 376399617] Future Scheduled 1958 Urine screening for [facility] - Test 00:00:00 protein (procedure) Medical Center [code = 247181490] Future Scheduled [address] [facility] - Test 00:00:00 malignant neoplasm of Medica l Center colon (procedure) [code = 567576417] Future Scheduled [address] [facility] - Test 00:00:00 malignant neoplasm of Medica Center colon (procedure) [code = 117558372] Encounters Start End Encounter Admission Attending Care Care Encounter Source Date/Time Date/Time Type Type Clinicians Facility Department ID 2020-08-11 Inpatient DUANE Menchaca [facility] [id number] [facility] 23:15:[id number] [facility] 2021-04-24 2021-04-24 [facility] [id number] Univers 13:30:00 13:30:00 SENDIL [id number] ity of [facility] 2021-03-23 2021-03-23 Outpatient [facility] [id number] Univers 13:20:00 13:20:00 NOELLE [id number] ity o f [facility] 2021-03-23 2021-03-23 [facility] [id number] Univers 00:00:00 00:00:00 Cailin DILLARD [id number] ity of [place] PROF[place] [phone] Pa dical NAL 9 [facility] 2021-03-03 2021-03-03 Orders Doctor DENICE [id number] Univers 00:00:00 00:00:00 Only Unassigned, JOYCE [id number] ity of [place] [facility] 4.2.7.2.686 Jameel as [phone] [address] 2021-02-23 2021-02-23 Office [facility] [id number] Univers 12:49:37 13:33:16 Visit Cailin [place] [id number] ity [place] Profess[place] [phone] Pa dical nal [address] [place] [address] 2021-02-23 2021-02-23 Outpatient [facility] [id number] Univers 13:00:00 13:00:00 SENDIL [id number] ity [facility] 2021-02-23 2021-02-23 Outpatient R [facility] [id number] Univers 13:00:00 13:00:00 SENDIL ity [facility] 2021-02-23 2021-02-23 Orders Doctor GALDAMEZ [id number] Univers 00:00:00 00:00:00 Only Unassigned, JOYCE [id number] ity of [place] [facility] 4.2.7.2.686 Jameel as [phone] [address] 2021-01-31 2021-01-31 Outpatient Ias [facility] [id number] Univers 11:40:00 11:40:00 SAYRA [id number] ity [facility] 2021-01-31 2021-01-31 Outpatient Isa [facility] [id number] Univers 11:40:00 11:40:00 [facility]AYRA [facility] [place] [facility] 2021-01-26 2021-01-26 Outpatient R [facility] [id number] Univers 00:00:00 00:00:00 SENDIL [facility] [place] [facility] 2021-01-25 2021-01-25 Outpatient [facility] [id number] Univers 00:00:00 00:00:00 SENDIL ity [facility] 2021-01-12 2021-01-12 Outpatient Ias [facility] [id number] -[id number] Univers 13:30:00 13:30:00 SENDIL [id number] [facility] [place] [facility] 2021-01-12 2021-01-12 Outpatient Isa [facility] [id number] Univers 13:30:00 13:30:00 SENDIL [facility] [place] [facility] 2020-12-15 2020-12-15 Office [facility] [id number] 08:50:21 09:50:59 Visit Sendil Letty D[place] 350.1.13.10 [place] 4.2.7.2.686 Cece [phone] nal 059 Building 2020-12-15 2020-12-15 Outpatient Isa [facility] [id number] Univers 09:00:00 09:00:00 SENDIL ity [place] [facility] 2020-08-11 2020-08-11 Emergency X RAMIREZ, [facility] ERT [id number] Univers 14:46:00 14:46:00 PARESH [facility] 2007-02-17 2007-02-18 Outpatient [facility] [id number] Univers 00:00:00 08:13:49 2 [facility] Results Test Description Test Time Test Comments Results Result Comments Source GLUCOSE BEDSIDE TESTING 2020-08-13 12:07:00 Test Item Value Reference Range Interpretation Comme nts GLUCOSE BEDSIDE TESTING (test code = GLUBED) 137 MG/DL 60-99 H GLYCOSYLATED HEMOGLOBIN [id number] 11:19:00 Test Item Value Reference Range Interpretation [...] H (test code = MBG) BASIC METABOLIC [id number] 07:59:00 Test Item Value Reference Range Interpretation [...] PATIENT REFUSED; PER ANTONIO Soto (STEPHEN)BASIC METABOLIC [id number] 07:50:00 Test Item Value Reference Range Interpretation [...] = LDL) PATIENT REFUSED; PER ANTONIO MOORE)PROTHROMBIN [id number] 07:46:00 Test Item Value Reference Range Interpretation [...] 3.0 - 4.5 PATIENT REFUSED; PER:ANTONIO MOORE)PTT [id number] 07:46:00 Test Item Value Reference Range Interpretation Comments PTT ACTIVATED (test code = APTT) 39.0 SECONDS 25.1-36.5 H PATIENT REFUSED; PER:ANTONIO Soto (RN)CBC W/AUTO [id number] 07:35:00 Test Item Value Reference Range Interpretation [...] 0.00 K/mm3 0.0-0.1 N NRBC#) PATIENT REFUSED; NORM Soto (RN)GLUCOSE BEDSIDE [id number] 04:56:00 Test Item Value Reference Range Interpretation Comments GLUCOSE BEDSIDE TESTING (test code 123 MG/DL 60-99 H = GLUBED) GLUCOSE BEDSIDE [id number] 18:50:00 Test Item Value Reference Range Interpretation Comments GLUCOSE BEDSIDE TESTING (test code 221 MG/DL 60-99 H = GLUBED) GLUCOSE BEDSIDE [id number] 15:43:00 Test Item Value Reference Range Interpretation Comments GLUCOSE BEDSIDE TESTING (test code 126 MG/DL 60-99 H = GLUBED) GLUCOSE BEDSIDE [id number] 11:35:00 Test Item Value Reference Range Interpretation Comments GLUCOSE BEDSIDE TESTING (test code 161 MG/DL 60-99 H = GLUBED) GLYCOSYLATED HEMOGLOBIN [id number] 10:30:00 Test Item Value Reference Range Interpretation [...] H (test code = MBG) COMPREHENSIVE METABOLIC [id number] 09:27:00 Test Item Value Reference Range Interpretation [...] 38-126 N PHOSPHATASE (test code = ALKP) [id number] 09:27:00 Test Item Value Reference Range Interpretation Comments TROPONIN-I (test code = TROPI) 0.089 NG/ML 0.012-0.033 H T4 [id number] 09:07:00 Test Item Value Reference Range Interpretation Comments T4 FREE (test code = T4F) 1.5 NG/DL 0.78-2.19 N Specimen comments: please run from tsh previously drawnCOMPREHENSIVE METABOLIC [id number] 08:51:00 Test Item Value Reference Range Interpretation [...] 38-126 N PHOSPHATASE (test code = ALKP) [id number] 08:51:00 Test Item Value Reference Range Interpretation Comments TROPONIN-I (test code = TROPI) NG/ML 0.0-0.045 CBC W/AUTO [id number] 08:36:00 Test Item Value Reference Range Interpretation [...] 0.00 K/mm3 0.0-0.1 N NRBC#) GLUCOSE BEDSIDE [id number] 07:36:00 Test Item Value Reference Range Interpretation Comments GLUCOSE BEDSIDE TESTING (test code 178 MG/DL 60-99 H = GLUBED) URINALYSIS [id number] 04:39:00 Test Item Value Reference Range Interpretation [...] UACULT) Criteria SOURCE OF URINE: CLEAN CATCHURINALYSIS [id number] 04:35:00 Test Item Value Reference Range Interpretation [...] SOURCE OF URINE: CLEAN CATCHTSH REFLEX TO [id number] 04:06:00 Test Item Value Reference Range Interpretation Comments TSH REFLEX TO FT4 0.391 MIU/L 0.65-4.68 L Please be aware that (test code = bias results fo r TSH TSHREFLEX) may occur forpa tient who are taking Biotin supplements. [id number] 04:06:00 Test Item Value Reference Range Interpretation Comments MAGNESIUM (test code = MAG) 1.8 MG/DL 1.6-2.3 N LIPOPROTEIN LDL [id number] 04:06:00 Test Item Value Reference Range Interpretation Comments LIPOPROTEIN LDL DIRECT 92 mg/dL 100-129 L ===== (test code = LDLDIR) ======= ==Refe rence Interval: mg/dL mmol/L--------- ------ ------ ------ --Optimal <100 <2.6Near/abov e optimal 100-129 2.6-3.3Borderli ne High 130-159 3.4-4.1High 16 0-189 4.1-4.9Ve ry High >=190 >=4.9========= This LDL result is a direct measurement.=== ====== [id number] 04:06:00 Test Item Value Reference Range Interpretation Comments TROPONIN-I (test code = TROPI) 0.075 NG/ML 0.012-0.033 H [id number] 03:48:00 Test Item Value Reference Range Interpretation Comments MAGNESIUM (test code = MAG) 1.8 MG/DL 1.6-2.3 N LIPOPROTEIN LDL [id number] 03:48:00 Test Item Value Reference Range Interpretation Comments LIPOPROTEIN LDL DIRECT (test code = mg/dL 100-129 LDLDIR) [id number] 03:48:00 Test Item Value Reference Range Interpretation Comments TROPONIN-I (test code = TROPI) 0.075 NG/ML 0.012-0.033 H [id number] 03:38:00 Test Item Value Reference Range Interpretation Comments MAGNESIUM (test code = MAG) 1.8 MG/DL 1.6-2.3 N [id number] 03:38:00 Test Item Value Reference Range Interpretation Comments TROPONIN-I (test code = TROPI) NG/ML 0.0-0.045 GLUCOSE BEDSIDE [id number] 23:56:00 Test Item Value Reference Range Interpretation Comments GLUCOSE BEDSIDE TESTING (test code 211 MG/DL 60-99 H = GLUBED) HEMOGLOBIN [id number] 09:40:00 Test Item Value Reference Range Interpretation Comments HEMOGLOBIN A1C (GALE) (test code = 6.1 % 4.3-6.1 368) RAD, CHEST, 1 VIEW, NON [id number] 09:36:00Reason for exam:->sobShould this be performed at the bedside?->YesFINAL REPORT Chest one view compared to January 22 Discussion: There is cardiac prominence and interstitial congestion. There is linear opacity in both lower lungs. No effusionor pneumothorax. Signed: Denice Tran Verified Date/Time: 01/23/2018 09:36:57 Reading Location: [facility] Radiology Reading Room POCT-GLUCOSE [id number] 08:04:00 Test Item Value Reference Range Interpretation Comments POC-GLUCOSE METER 176 mg/dL 70-110 H TESTED AT [facility] 67[address] (GALE) (test code = [place] [address]) [address] [id number] 06:49:00 Test Item Value Reference Range Interpretation Comments MAGNESIUM (BEAKER) 2.1 mg/dL 1.6-2.6 Specimen slightly (test code = 627) hemolyzed BASIC METABOLIC [id number] 06:49:00 Test Item Value Reference Range Interpretation [...] PATIEN TS. CBC W/PLT COUNT & AUTO [id number] 06:30:00 Test Item Value Reference Range Interpretation [...] PERCENT (BEAKER) (test code = 2801) POCT-GLUCOSE [id number] 22:19:00 Test Item Value Reference Range Interpretation Comments POC-GLUCOSE METER 235 mg/dL 70-110 H TESTED AT [facility] [address] ([facility]) (test code = [place] [address]) [id number] TROPONIN [id number] 17:45:00 Test Item Value Reference Range Interpretation [...] 0-100 H (BEAKER) (test code = 700) [id number] 17:35:00 Test Item Value Reference Range Interpretation Comments MAGNESIUM (BEAKER) (test code = 1.9 mg/dL 1.6-2.6 627) COMPREHENSIVE METABOLIC [id number] 17:35:00 Test Item Value Reference Range Interpretation [...] NOT APPLICABLE FOR DIALYSIS PATIEN TS. LIPID [id number] 17:35:00 Test Item Value Reference Range Interpretation [...] 160-189 Very High >=190LACTIC ACID, VENOUS, WHOLE [id number] 17:29:00 Test Item Value Reference Range Interpretation Comments LACTATE BLOOD VENOUS 1.0 mmol/L 0.5-2.2 Specime n slightly (2) (BEAKER) (test hemolyzed code = 2872) Effective 09/07/2015: Units/Reference Range ChangeNew: 0.5-2.2 mmol/L Previous: 5-20 mg/[id number] 17:29:00 Test Item Value Reference Range Interpretation Comments PARTIAL THROMBOPLASTIN TIME 46.7 seconds 22.5-36.0 H (BEAKER) (test code = 760) PROTHROMBIN TIME/[id number] 17:28:00 Test Item Value Reference Range Interpretation [...] = 2801) RAD, CHEST, 1 VIEW, NON [id number] 17:16:00Reason for exam:->sp acute respiratory failure/bronchospasmShould this [...] Banegas Verified Date/Time: 01/22/2018 17:16:12 Reading Location: [facility] Reading Room POCT-GLUCOSE [id number] 17:12:00 Test Item Value Reference Range Interpretation Comments POC-GLUCOSE METER 118 mg/dL 70-110 H TESTED AT [facility] 6720 (BEAKER) (test code = BREEZY Moss [facility] 1538) [address] BLOOD GAS, [id number] 16:35:00 Test Item Value Reference Range Interpretation [...] (test code = 1819) 32.0 % POCT-GLUCOSE [id number] 14:15:00 Test Item Value Reference Range Interpretation Comments POC-GLUCOSE METER 69 mg/dL 70-110 L Will Repea t Test/TESTED (BEAKER) (test code = AT [facility] 67[address] [facility] 1538) [place] [address] POCT-GLUCOSE [id number] 08:43:00 Test Item Value Reference Range Interpretation Comments POC-GLUCOSE METER 277 mg/dL 70-110 H TESTED AT [facility] 6720 (BEAKER) (test code = BREEZY Moss [facility] 1538) [address] [id number] 06:20:00 Test Item Value Reference Range Interpretation Comments PHOSPHORUS (BEAKER) (test code = 3.3 mg/dL 2.3-4.7 604) [id number] 06:20:00 Test Item Value Reference Range Interpretation Comments MAGNESIUM (BEAKER) (test code = 1.8 mg/dL 1.6-2.6 627) BASIC METABOLIC [id number] 06:20:00 Test Item Value Reference Range Interpretation [...] PATIEN TS. CBC W/PLT COUNT & AUTO [id number] 06:09:00 Test Item Value Reference Range Interpretation [...] PERCENT (BEAKER) (test code = 2801) POCT-GLUCOSE [id number] 22:48:00 Test Item Value Reference Range Interpretation Comments POC-GLUCOSE METER 196 mg/dL 70-110 H TESTED AT [facility] 6720 (BEAKER) (test code = BREEZY Moss [place] 1538) [address] POCT-GLUCOSE [id number] 17:21:00 Test Item Value Reference Range Interpretation Comments POC-GLUCOSE METER 122 mg/dL 70-110 H TESTED AT [facility] 6720 (BEAKER) (test code = BREEZY [place] 1538) [address] [id number] 13:13:00 Test Item Value Reference Range Interpretation Comments PHOSPHORUS (BEAKER) (test code = 2.4 mg/dL 2.3-4.7 604) BASIC METABOLIC [id number] 13:13:00 Test Item Value Reference Range Interpretation [...] S NOT APPLICABLE FOR DIALYSIS PATIEN TS. [id number] 13:08:00 Test Item Value Reference Range Interpretation Comments MAGNESIUM (BEAKER) (test code = 1.7 mg/dL 1.6-2.6 627) CBC W/PLT COUNT & AUTO [id number] 12:50:00 Test Item Value Reference Range Interpretation [...] PERCENT (BEAKER) (test code = 2801) POCT-GLUCOSE [id number] 12:42:00 Test Item Value Reference Range Interpretation Comments POC-GLUCOSE METER 174 mg/dL 70-110 H TESTED AT [facility] 6720 (BEAKER) (test code = BREEZY [place] 1538) [address] POCT-GLUCOSE [id number] 08:01:00 Test Item Value Reference Range Interpretation Comments POC-GLUCOSE METER 175 mg/dL 70-110 H TESTED AT [place] [address] ([facility]) (test code = BREEZY Moss [facility] 1538) [address] RAD, CHEST, 1 VIEW, NON [id number] 03:44:00Reason for exam:->ptxShould this be performed at [...] MDReport Verified Date/Time: 11/18/2017 03:44:04 Reading Location: [address] Reading Room POCT- GLUCOSE [id number] 21:05:00 Test Item Value Reference Range Interpretation Comments POC-GLUCOSE METER 145 mg/dL 70-110 H TESTED AT [place] [address] ([facility]) (test code = BREEZY Moss [facility] 1538) [address] POCT-GLUCOSE [id number] 17:19:00 Test Item Value Reference Range Interpretation Comments POC-GLUCOSE METER 129 mg/dL 70-110 H TESTED AT [place] [address] ([facility]) (test code = BREEZY Moss [facility] 1538) [address] POCT-GLUCOSE [id number] 12:12:00 Test Item Value Reference Range Interpretation Comments POC-GLUCOSE METER 194 mg/dL 70-110 H TESTED AT [place] [address] ([facility]) (test code = BREEZY Moss [facility] 1538) [address] POCT-GLUCOSE [id number] 07:30:00 Test Item Value Reference Range Interpretation Comments POC-GLUCOSE METER 171 mg/dL 70-110 H TESTED AT [place] [address] ([facility]) (test code = BREEZY Moss [facility] 1530) [address] RAD, CHEST, 1 VIEW, NON [id number] 07:27:00Reason for exam:->ptxShould this be performed at [...] Verified Date/Time: 11/17/2017 07:27:16 Reading Location: [address] Consult Reading Room [id number] 07:19:00 Test Item Value Reference Range Interpretation Comments MAGNESIUM (BEAKER) (test code = 1.9 mg/dL 1.6-2.6 627) BASIC METABOLIC [id number] 07:19:00 Test Item Value Reference Range Interpretation [...] NOT APPLICABLE FOR DIALYSIS PATIEN TS. POCT-GLUCOSE [id number] 21:30:00 Test Item Value Reference Range Interpretation Comments POC-GLUCOSE METER 214 mg/dL 70-110 H TESTED AT [facility] 6720 (BEAKER) (test code = BREEZY [place] 1538) [address] URINALYSIS W/ REFLEX URINE [id number] 16:32:00 Test Item Value Reference Range Interpretation [...] = 2795) RAD, CHEST, 1 VIEW, NON [id number] 15:34:00Reason for exam:->ptxShould this be performed at [...] MDReport Verified Date/Time: 11/16/2017 15:34:49 Reading Location: [facility] C[address]W [facility] Reading Room POCT-GLUCOSE [id number] 12:10:00 Test Item Value Reference Range Interpretation Comments POC-GLUCOSE METER 203 mg/dL 70-110 H TESTED AT [place] [address] ([facility]) (test code = ARTURONJ Isa [facility] 1538) [address] POCT-GLUCOSE [id number] 08:21:00 Test Item Value Reference Range Interpretation Comments POC-GLUCOSE METER 181 mg/dL 70-110 H TESTED AT [place] [address] ([facility]) (test code = ARTURONJ Isa [facility] 1538) [address] RAD, CHEST, 1 VIEW, NON [id number] 08:03:00while patient is intubated or has chest tubes.Reason for exam:->PostopShould this be performed atthe bedside?->YesFINAL REPORT Chest one view compared to November 15 Discussion: Left chest tube is again noted. A left apical pneumothorax appears minimally larger now with pleural separation 1.8 cm. Patchy airspace opacities left mid lung overall similar. No effusion. IMPRESSIONS: A left-sided pneumothorax appears minimally larger. Signed: Denice Tranort Verified Date/Time: 11/16/2017 08:03:32 Reading Location: [address] Reading Room POCT-GLUCOSE [id number] 00:11:00 Test Item Value Reference Range Interpretation Comments POC-GLUCOSE METER 159 mg/dL 70-110 H TESTED AT [place] [address] ([facility]) (test code = ARTURONJ [employer] [facility] 1538) [address] POCT-GLUCOSE [id number] 20:33:00 Test Item Value Reference Range Interpretation Comments POC-GLUCOSE METER 163 mg/dL 70-110 H TESTED AT [place] [address] ([facility]) (test code = [facility] 1538) [address] POCT-GLUCOSE [id number] 17:33:00 Test Item Value Reference Range Interpretation Comments POC-GLUCOSE METER 183 mg/dL 70-110 H TESTED AT [facility] 6720 (BEAKER) (test code = BREEZY [place] 1538) [address] URINE IMMUNOFIXATION, [id number] 17:17:00 Test Item Value Reference Range Interpretation Comments PROTEIN, URINE 30 mg/dL 0-14 H (BEAKER) (test code = 1569) ALBUMIN URINE ELP 61.4 % (BEAKER) (test code = 1018) GAMMA GLOBULIN URINE 38.6 % (BEAKER) (test code = 1015) URINE GERARD [id number] No monoclonal proteins (AKER) (test code = or monoclonal free 2602) light chains detected. [id number] Raine Martin MD ([facility]) (test code = (electronic signature) 2603) RAD, CHEST, 1 VIEW, NON [id number] 13:19:00while patient is intubated or has chest tubes.Reason for exam:->PostopShould this be performed atthe bedside?->YesFINAL REPORT Chest one view compared to November 14 Discussion: Left chest tube, right IJ pulmonary catheter are noted. There is pulmonary congestion and right midlung linear atelectasis grossly similar. No gross effusion. Tiny left apical pneumothorax unchanged. Signed: Denice Tran Verified Date/Time: 11/15/2017 13:19:28 Reading Location: [facility] Radiology ReadingRoom URINE PROTEIN ELECTROPHORESIS, RANDOM 2017-11-15 12:47:00 Test Item Value Reference Range Interpretation Comments PROTEIN, URINE 12 mg/dL 0-14 (BEAKER) (test code = 1569) ALBUMIN URINE ELP 61.4 % (BEAKER) (test code = 1018) GAMMA GLOBULIN URINE 38.6 % (BEAKER) (test code = 1015) UPEP, [id number] ([facility]) No monoclonal bands (test code = 2604) detected. [id number] Raine Martin MD ([facility]) (test code = (electronic signature) 2605) PROTEIN ELECTROPHORESIS, [id number] 12:29:00 Test Item Value Reference Range Interpretation [...] a hemolyzed sample. No monoclonal bands detected. [id number] Raine Martin MD (BEAKER) (test code = (electronic signature) 4933) PROTEIN TOTAL SERUM, 7.0 gm/dL 6.0-8.3 SPEP (BEAKER) (test code = 3870) BLOOD GAS, [id number] 08:21:00 Test Item Value Reference Range Interpretation [...] code = 1819) 20.0 % BASIC METABOLIC [id number] 08:03:00 Test Item Value Reference Range Interpretation [...] DIALYSIS PATIEN TS. LACTIC ACID, ARTERIAL, WHOLE [id number] 07:57:00 Test Item Value Reference Range Interpretation Comments LACTATE BLOOD ARTERIAL (2) 0.8 mmol/L 0.5-2.2 (BEAKER) (test code = 2874) Effective 09/07/2015: Units/Reference Range ChangeNew: 0.5-2.2 mmol/L Previous: 5-20 mg/[id number] 02:55:00 Test Item Value Reference Range Interpretation Comments PHOSPHORUS (BEAKER) (test code = 2.8 mg/dL 2.3-4.7 604) [id number] 02:55:00 Test Item Value Reference Range Interpretation Comments MAGNESIUM (BEAKER) (test code = 2.1 mg/dL 1.6-2.6 627) BASIC METABOLIC [id number] 02:55:00 Test Item Value Reference Range Interpretation [...] NOT APPLICABLE FOR DIALYSIS PATIEN TS. PROTHROMBIN TIME/[id number] 02:53:00 Test Item Value Reference Range Interpretation Comments PROTIME (BEAKER) (test code = 14.9 seconds 11.7-14.7 H 759) INR (BEAKER) (test code = 370) 1.2 <=5.9 RECOMMENDED COUMADIN/WARFARIN INR THERAPY RANGESSTANDARD DOSE: 2.0 - 3.0 Includes: PROPHYLAXIS forvenous thrombosis, systemic embolization; TREATMENT for venous thrombosis and/or pulmonary embolus.HIGH RISK: Target INR is 2.5-3.5 for patients with mechanical heart valves.[id number] 02:53:00 Test Item Value Reference Range Interpretation Comments PARTIAL THROMBOPLASTIN TIME 34.0 seconds 22.5-36.0 (BEAKER) (test code = 760) CBC W/PLT COUNT & AUTO [id number] 02:43:00 Test Item Value Reference Range Interpretation [...] PERCENT (BEAKER) (test code = 2801) PLATELET [id number] 02:35:00 Test Item Value Reference Range Interpretation Comments PLATELET COUNT (BEAKER) (test 167 K/CU MM 150-450 code = 756) GLUCOSE-STAT [id number] 02:32:00 Test Item Value Reference Range Interpretation Comments GLUCOSE RANDOM (BEAKER) (test code 112 mg/dL 70-110 H = 652) HGB/HCT (H&H) - STAT [id number] 02:32:00 Test Item Value Reference Range Interpretation Comments HEMOGLOBIN (BEAKER) (test code = 10.5 g/dL 13.0-16.8 L 410) HEMATOCRIT (BEAKER) (test code = 31.0 % 40.0-50.0 L 411) CALCIUM, [id number] 02:31:00 Test Item Value Reference Range Interpretation Comments CALCIUM IONIZED (BEAKER) (test 1.18 mmol/L 1.12-1.27 code = 698) PH, BLOOD (BEAKER) (test code = 7.38 1810) SODIUM NA-STAT [id number] 02:31:00 Test Item Value Reference Range Interpretation Comments SODIUM (BEAKER) (test code = 381) 137 meq/L 135-148 POTASSIUM-STAT [id number] 02:31:00 Test Item Value Reference Range Interpretation Comments POTASSIUM (BEAKER) (test code = 3.7 meq/L 3.6-5.5 379) POCT-GLUCOSE [id number] 00:40:00 Test Item Value Reference Range Interpretation Comments POC-GLUCOSE METER 129 mg/dL 70-110 H TESTED AT [place] [address] ([facility]) (test code = BREEZY Moss [facility] 1538) [address] POCT-GLUCOSE [id number] 00:40:00 Test Item Value Reference Range Interpretation Comments POC-GLUCOSE METER 143 mg/dL 70-110 H TESTED AT [place] [address] ([facility]) (test code = BREEZY Moss [facility] 1538) [address] POCT-GLUCOSE [id number] 21:41:00 Test Item Value Reference Range Interpretation Comments POC-GLUCOSE METER 179 mg/dL 70-110 H TESTED AT [place] [address] ([facility]) (test code = BREEYZ Moss [facility] 1538) [address] BLOOD GAS, [id number] 19:39:00 Test Item Value Reference Range Interpretation [...] (test code = 1819) 40.0 % GLUCOSE-STAT [id number] 19:39:00 Test Item Value Reference Range Interpretation Comments GLUCOSE RANDOM (BEAKER) (test code 160 mg/dL 70-110 H = 652) HGB/HCT (H&H) - STAT [id number] 19:39:00 Test Item Value Reference Range Interpretation Comments HEMOGLOBIN (BEAKER) (test code = 11.0 g/dL 13.0-16.8 L 410) HEMATOCRIT (BEAKER) (test code = 32.0 % 40.0-50.0 L 411) SODIUM NA-STAT [id number] 19:37:00 Test Item Value Reference Range Interpretation Comments SODIUM (BEAKER) (test code = 381) 137 meq/L 135-148 POTASSIUM-STAT [id number] 19:37:00 Test Item Value Reference Range Interpretation Comments POTASSIUM (BEAKER) (test code = 4.0 meq/L 3.6-5.5 379) BLOOD GAS, [id number] 18:02:00 Test Item Value Reference Range Interpretation [...] arterial line present.RAD, CHEST, 1 VIEW, NON [id number] 17:20:00 Reason for exam:->PostopShould this be performed at the bedside?->YesFINAL REPORT EXAM: Frontal chest radiograph HISTORY PROVIDED: Postop COMPARISON: 11/13/2017 IMPRESSION:The tip of an endotracheal tube terminates 3.8 cm above the alexia. A right IJ approach Mendon-Jun catheter has been placed with its tip [...] MDReport Verified Date/Time: 11/14/2017 17:20:20 Reading Location: [facility] Reading Room C METABOLIC [id number] 16:02:00 Test Item Value Reference Range Interpretation [...] S NOT APPLICABLE FOR DIALYSIS PATIEN TS. [id number] 16:02:00 Test Item Value Reference Range Interpretation Comments PHOSPHORUS (BEAKER) (test code = 2.3 mg/dL 2.3-4.7 604) [id number] 16:02:00 Test Item Value Reference Range Interpretation Comments MAGNESIUM (BEAKER) (test code = 2.6 mg/dL 1.6-2.6 627) LACTIC ACID, ARTERIAL, WHOLE [id number] 15:58:00 Test Item Value Reference Range Interpretation Comments LACTATE BLOOD 0.9 mmol/L 0.5-2.2 Specimen sligh tly ARTERIAL (2) (BEAKER) hemoly zed (test code = 2874) Effective 09/07/2015: Units/Reference Range ChangeNew: 0.5-2.2 mmol/L Previous: 5-20 mg/dLCBC W/PLT COUNT & AUTO [id number] 15:47:00 Test Item Value Reference Range Interpretation [...] (BEAKER) (test code = 2801) OXYGEN SATURATION, [id number] 15:37:00 Test Item Value Reference Range Interpretation Comments O2 SATURATION (MEASURED) (BEAKER) 55.5 % (test code = 1455) CALCIUM, [id number] 15:37:00 Test Item Value Reference Range Interpretation Comments CALCIUM IONIZED (BEAKER) (test 1.12 mmol/L 1.12-1.27 code = 698) PH, BLOOD (BEAKER) (test code = 7.41 1810) SODIUM NA-STAT [id number] 15:37:00 Test Item Value Reference Range Interpretation Comments SODIUM (BEAKER) (test code = 381) 138 meq/L 135-148 POTASSIUM-STAT [id number] 15:37:00 Test Item Value Reference Range Interpretation Comments POTASSIUM (BEAKER) (test code = 3.6 meq/L 3.6-5.5 379) BLOOD GAS, [id number] 15:37:00 Test Item Value Reference Range Interpretation [...] (test code = 1819) 60.0 % GLUCOSE-STAT [id number] 15:37:00 Test Item Value Reference Range Interpretation Comments GLUCOSE RANDOM (BEAKER) (test code 162 mg/dL 70-110 H = 652) HEMOGLOBIN-STAT [id number] 15:37:00 Test Item Value Reference Range Interpretation Comments HEMOGLOBIN (BEAKER) (test code = 11.2 g/dL 13.0-16.8 L 410) HGB/HCT (H&H) - STAT [id number] 15:37:00 Test Item Value Reference Range Interpretation Comments HEMOGLOBIN (BEAKER) (test code = 11.2 GM/DL 13.0-16.8 L 410) HEMATOCRIT (BEAKER) (test code = 33.0 % 40.0-50.0 L 411) [id number] 14:04:00 Test Item Value Reference Range Interpretation Comments ACTIVATED CLOTTING TIME 114 sec TEST ED AT [place] [address] ([facility]) (test code = BREEZY Moss [place] [address]) [address] [id number] 14:04:00 Test Item Value Reference Range Interpretation Comments ACTIVATED CLOTTING TIME 472 sec TEST ED AT [place] [address] ([facility]) (test code = BREEZY Moss [place] [address]) [address] [id number] 14:04:00 Test Item Value Reference Range Interpretation Comments ACTIVATED CLOTTING TIME 505 sec TEST ED AT [place] [address] ([facility]) (test code = BREEZY Moss [place] [address]) [address] [id number] 14:04:00 Test Item Value Reference Range Interpretation Comments ACTIVATED CLOTTING TIME 543 sec TEST ED AT [place] [address] ([facility]) (test code = BREEZY Moss [place] [address]) [address] CALCIUM, [id number] 13:58:00 Test Item Value Reference Range Interpretation Comments CALCIUM IONIZED (BEAKER) (test 1.11 mmol/L 1.12-1.27 L code = 698) PH, BLOOD (BEAKER) (test code = 7.36 1810) BLOOD GAS, [id number] 13:56:00 Test Item Value Reference Range Interpretation [...] (test code = 1819) 100.0 % GLUCOSE-STAT [id number] 13:56:00 Test Item Value Reference Range Interpretation Comments GLUCOSE RANDOM (BEAKER) (test code 167 mg/dL 70-110 H = 652) HGB/HCT (H&H) - STAT [id number] 13:56:00 Test Item Value Reference Range Interpretation Comments HEMOGLOBIN (BEAKER) (test code = 10.8 g/dL 13.0-16.8 L 410) HEMATOCRIT (BEAKER) (test code = 32.0 % 40.0-50.0 L 411) SODIUM NA-STAT [id number] 13:55:00 Test Item Value Reference Range Interpretation Comments SODIUM (BEAKER) (test code = 381) 136 meq/L 135-148 POTASSIUM-STAT [id number] 13:55:00 Test Item Value Reference Range Interpretation Comments POTASSIUM (BEAKER) (test code = 3.8 meq/L 3.6-5.5 379) BLOOD GAS, [id number] 12:54:00 Test Item Value Reference Range Interpretation [...] code = 1819) 65.0 % SODIUM NA-STAT [id number] 12:54:00 Test Item Value Reference Range Interpretation Comments SODIUM (BEAKER) (test code = 381) 134 meq/L 135-148 L GLUCOSE-STAT [id number] 12:54:00 Test Item Value Reference Range Interpretation Comments GLUCOSE RANDOM (BEAKER) (test code 158 mg/dL 70-110 H = 652) HGB/HCT (H&H) - STAT [id number] 12:54:00 Test Item Value Reference Range Interpretation Comments HEMOGLOBIN (BEAKER) (test code = 8.8 g/dL 13.0-16.8 L 410) HEMATOCRIT (BEAKER) (test code = 26.0 % 40.0-50.0 L 411) POTASSIUM-STAT [id number] 12:53:00 Test Item Value Reference Range Interpretation Comments POTASSIUM (BEAKER) (test code = 4.1 meq/L 3.6-5.5 379) BLOOD GAS, [id number] 12:20:00 Test Item Value Reference Range Interpretation [...] code = 1819) 60.0 % SODIUM NA-STAT [id number] 12:20:00 Test Item Value Reference Range Interpretation Comments SODIUM (BEAKER) (test code = 381) 134 meq/L 135-148 L GLUCOSE-STAT [id number] 12:20:00 Test Item Value Reference Range Interpretation Comments GLUCOSE RANDOM (BEAKER) (test code 187 mg/dL 70-110 H = 652) HGB/HCT (H&H) - STAT [id number] 12:20:00 Test Item Value Reference Range Interpretation Comments HEMOGLOBIN (BEAKER) (test code = 10.0 g/dL 13.0-16.8 L 410) HEMATOCRIT (BEAKER) (test code = 29.0 % 40.0-50.0 L 411) BLOOD GAS, [id number] 12:20:00 Test Item Value Reference Range Interpretation [...] (test code = 1819) 60.0 % POTASSIUM-STAT [id number] 12:18:00 Test Item Value Reference Range Interpretation Comments POTASSIUM (BEAKER) (test code = 3.5 meq/L 3.6-5.5 L 379) U/S, RENAL WITH [id number] 08:35:00Reason for exam:->INCLUDE DOPPLERS AND PVR- for [...] MDReport Verified Date/Time: 11/14/2017 08:35:40 Reading Location: [address] Ultrasound Reading Room POCT-GLUCOSE [id number] 07:34:00 Test Item Value Reference Range Interpretation Comments POC-GLUCOSE METER 190 mg/dL 70-110 H TESTED AT [facility] 6720 ([facility]) (test code = BREEZY Moss [facility] 1538) [address] [id number] 05:19:00 Test Item Value Reference Range Interpretation Comments MAGNESIUM (BEAKER) (test code = 2.0 mg/dL 1.6-2.6 627) BASIC METABOLIC [id number] 05:19:00 Test Item Value Reference Range Interpretation [...] PATIEN TS. CBC W/PLT COUNT & AUTO [id number] 05:00:00 Test Item Value Reference Range Interpretation [...] 0-1 PERCENT (BEAKER) (test code = 2801) [id number] 01:56:00 Test Item Value Reference Range Interpretation Comments PARTIAL THROMBOPLASTIN TIME 69.0 seconds 22.5-36.0 H (BEAKER) (test code = 760) POCT-GLUCOSE [id number] 22:07:00 Test Item Value Reference Range Interpretation Comments POC-GLUCOSE METER 185 mg/dL 70-110 H TESTED AT [facility] 6720 (BEAKER) (test code = BREEZY Moss [place] 1538) [address] [id number] 18:43:00 Test Item Value Reference Range Interpretation Comments PARTIAL THROMBOPLASTIN TIME 45.2 seconds 22.5-36.0 H (BEAKER) (test code = 760) [id number] 16:12:00 Test Item Value Reference Range Interpretation Comments THYROID STIMULATING HORMONE 0.53 uIU/mL 0.35-4.94 (BEAKER) (test code = 772) RAD, CHEST, 1 VIEW, NON [id number] 15:33:00Reason for exam:->preopShould this be performed at the bedside?->YesFINAL REPORT EXAM: Frontal chest radiograph HISTORY PROVIDED: Preop COMPARISON: 11/12/2017 IMPRESSION:No focal consolidation, pneumothorax, or significant pleural fluid. The cardiomediastinal silhouette is within normal limits. No acute osseous abnormality. Degenerative changes of the spine are present. Signed: Clayton Banegas Verified Date/Time: 11/13/2017 15:33:28[facility] Electronically signed by: CLAYTON BANEGAS on 11/03 03:33 [id number] 15:06:00 Test Item Value Reference Range Interpretation Comments PARTIAL THROMBOPLASTIN TIME 51.6 seconds 22.5-36.0 H (BEAKER) (test code = 760) PROTHROMBIN [id number] 15:05:00 Test Item Value Reference Range Interpretation [...] INTERPRETATION (BEAKER) arachidonic acid (test code = 163444) suggests aspirin-like effect. [id number] Deven Mei MD (BEAKER) (test code = (ikhzwitlkk 3891) signature) PLATELET COUNT AGG 243 K/CU MM 150-450 (BEAKER) (test code = 2656) Platelet aggregation results may be falsely low with platelet counts<100,000/CU MM.CREATININE, RANDOM [id number] 06:28:00 Test Item Value Reference Range Interpretation Comments CREATININE URINE (BEAKER) (test 114.6 mg/dL code = 375) Reference Range: No NormalsPROTEIN, RANDOM [id number] 06:28:00 Test Item Value Reference Range Interpretation Comments PROTEIN, URINE (BEAKER) (test code = 30 mg/dL 0-14 H 1569) PH, [id number] 05:47:00 Test Item Value Reference Range Interpretation Comments PH VENOUS (BEAKER) (test code = 701) 7.40 7.32-7.42 VITAMIN D, [id number] 04:52:00 Test Item Value Reference Range Interpretation Comments VITAMIN D 25-OH (BEAKER) (test 36.5 ng/mL 6.6-49.9 code = 2764) Effective 02/13/2017: Reference Range ChangeNew: 6.6-49.9 ng/mL Previous: 13.0-47.8 ng/mLRecommended Vitamin D Target Range: 30.0-40.0 ng/mLPTH, INTACT 2017-11-13 04:25:00 Test Item Value Reference Range Interpretation Comments PARATHYROID HORMONE INTACT 91.7 pg/mL 8.5-72.5 H (BEAKER) (test code = 577) [id number] 04:21:00 Test Item Value Reference Range Interpretation Comments PARTIAL THROMBOPLASTIN TIME 53.6 seconds 22.5-36.0 H (BEAKER) (test code = 760) URIC [id number] 04:20:00 Test Item Value Reference Range Interpretation Comments URIC ACID (BEAKER) (test code = 9.0 mg/dL 2.6-7.2 H 773) [id number] 04:20:00 Test Item Value Reference Range Interpretation Comments MAGNESIUM (BEAKER) (test code = 2.0 mg/dL 1.6-2.6 627) [id number] 04:20:00 Test Item Value Reference Range Interpretation Comments PHOSPHORUS (BEAKER) (test code = 3.1 mg/dL 2.3-4.7 604) BASIC METABOLIC [id number] 04:20:00 Test Item Value Reference Range Interpretation [...] PATIEN TS. CBC W/PLT COUNT & AUTO [id number] 04:06:00 Test Item Value Reference Range Interpretation [...] code = 416) BASOPHILS ABSOLUTE COUNT (AKER) 0.09 K/ L 0.01-0.08 H (test code = 417) IMMATURE GRANULOCYTES-RELATIVE 1 % 0-1 PERCENT (AKER) (test code = 2801) [id number] 22:34:00 Test Item Value Reference Range Interpretation Comments PARTIAL THROMBOPLASTIN TIME 49.5 seconds 22.5-36.0 H ([facility]) (test code = 760) POCT-GLUCOSE [id number] 21:55:00 Test Item Value Reference Range Interpretation Comments POC-GLUCOSE METER 179 mg/dL 70-110 H TESTED AT [facility] 67 ([facility]) (test code = [facility] Isa [facility] 1538) [address] RAD, CHEST, 1 VIEW, NON [id number] 17:03:00Reason for exam:->sobShould this be performed at the bedside?->YesFINAL REPORT CHEST AP PORTABLE History provided: Shortness of breath Comparison studies: None Heart size normal. Lungs grossly clear and vascularity normal. IMPRESSION: Grossly clear chest. Signed: Eboni Johnson MDReport Verified Date/Time: 11/12/2017 17:03:31 Reading Location: [address] Radiology Reading Room [id number] 15:41:00 Test Item Value Reference Range Interpretation Comments PARTIAL THROMBOPLASTIN TIME 41.3 seconds 22.5-36.0 H ([facility]) (test code = 760) POCT-GLUCOSE [id number] 11:50:00 Test Item Value Reference Range Interpretation Comments POC-GLUCOSE METER 218 mg/dL 70-110 H TESTED AT [facility] 6720 ([facility]) (test code = [facility] Isa [facility] 1538) [address] PLATELET AGGREGATION: FUNCTION [id number] 10:14:00 Test Item Value Reference Range Interpretation Comments WEAK ADP 82 % 60-91 RESULT([facility]) (test code = 2135) PLATELET FUNCTION 60-100% indicates This is a corrected SCREEN INTERP normal platelet result. Pre vious (BEAKER) (test function result was 50 -59% code = 2173) indicates mild platelet dysfunction on 11/11/2017 at [address] [facility]-PATHOLOGIST- Deven Mei MD 4965 (BEAKER) (electronic (test code = signature) 4142) PLATELET COUNT 283 K/CU MM 150-450 AGG (BEAKER) (test code = 2656) TROPONIN [id number] 08:02:00 Test Item Value Reference Range Interpretation [...] failure, acidosis, acute neurological disease, and persistent tachyarrhythmia.[id number] 07:55:00 Test Item Value Reference Range Interpretation Comments PARTIAL THROMBOPLASTIN TIME 42.7 seconds 22.5-36.0 H (BEAKER) (test code = 760) [id number] 07:55:00 Test Item Value Reference Range Interpretation Comments MAGNESIUM (BEAKER) (test code = 2.3 mg/dL 1.6-2.6 627) BASIC METABOLIC [id number] 07:55:00 Test Item Value Reference Range Interpretation [...] PATIEN TS. CBC W/PLT COUNT & AUTO [id number] 07:49:00 Test Item Value Reference Range Interpretation [...] PERCENT (BEAKER) (test code = 2801) POCT-GLUCOSE [id number] 07:33:00 Test Item Value Reference Range Interpretation Comments POC-GLUCOSE METER 159 mg/dL 70-110 H TESTED AT [facility] 6720 (BEAKER) (test code = [place] 1538) [address] [id number] 00:57:00 Test Item Value Reference Range Interpretation Comments PARTIAL THROMBOPLASTIN TIME 47.6 seconds 22.5-36.0 H (BEAKER) (test code = 760) [id number] 00:40:00 Test Item Value Reference Range Interpretation Comments MAGNESIUM (BEAKER) 2.3 mg/dL 1.6-2.6 Specimen slightly (test code = 627) hemolyzed BASIC METABOLIC [id number] 00:40:00 Test Item Value Reference Range Interpretation [...] NOT APPLICABLE FOR DIALYSIS PATIEN TS. POCT-GLUCOSE [id number] 21:57:00 Test Item Value Reference Range Interpretation Comments POC-GLUCOSE METER 162 mg/dL 70-110 H TESTED AT [facility] 6720 (BEAKER) (test code = [place] 1538) [address] HEMOGLOBIN [id number] 19:53:00 Test Item Value Reference Range Interpretation Comments HEMOGLOBIN A1C (BEAKER) (test code = 7.0 % 4.3-6.1 H 368) LIPID [id number] 18:10:00 Test Item Value Reference Range Interpretation [...] 130-159 High 160-189 Very High >=190BASIC METABOLIC [id number] 18:10:00 Test Item Value Reference Range Interpretation [...] APPLICABLE FOR DIALYSIS PATIEN TS. HEPATIC FUNCTION [id number] 18:10:00 Test Item Value Reference Range Interpretation [...] (test code = 24 U/L 6-55 347) [id number] 17:56:00 Test Item Value Reference Range Interpretation [...] PERCENT (BEAKER) (test code = 2801) POCT-GLUCOSE [id number] 16:49:00 Test Item Value Reference Range Interpretation Comments POC-GLUCOSE METER 128 mg/dL 70-110 H TESTED AT [facility] 6720 (BEAKER) (test code = [place] 1538) [address]
[2021-04-19 04:09] LABS: Absolute Lymphocytes (CBC) 1.8 K/uL (0.7-4.9); Basophils % 0.6 % (0-1.3); Hematocrit 36.6 % (39.6-49.0); Lymphocytes % 14.7 % (15.3-44.8); MPV 8.5 fL (7.6-11.3); RBC Red Blood Cell Count 4.21 M/uL (4.33-5.43)
[2021-04-19 04:10] LABS: Blood Gas Oxyhemoglobin 96.9 % (94-97); Blood O2 Saturation 99.6 % (92-98.5)
[2021-04-19 04:11] LABS: Arterial Blood Carboxyhemoglob 1.8 % (0-1.5)
[2021-04-19 04:25] LABS: Protime INR 1.22
[2021-04-19 04:36] LABS: Albumin 3.1 g/dL (3.4-5.0); Bilirubin Direct 0.1 mg/dL (0-0.2); Bilirubin Total 0.3 mg/dL (0.2-1.0); Magnesium 1.8 mg/dL (1.8-2.4); Potassium 3.9 mmol/L (3.5-5.1); Protein, Total 6.8 g/dL (6.4-8.2); Troponin (Emerg Dept Use Only) 0.02 ng/mL (0.0-0.045)
--- NOTE | 2021-04-19 04:46 | P.HP ---
Certification for Inpatient Patient admitted to: Inpatient With expected LOS: >2 Midnights Patient will require the following post-hospital care: None Practitioner: I am a practitioner with admitting privileges, knowledge of patient current condition, hospital course, and medical plan of care. Services: Services provided to patient in accordance with Admission requirements found in Title 42 Section 412.3 of the Code of Federal Regulations Patient History Date of Service: 04/19/21 Reason for admission: CHF Exacerbation History of Present Illness: Mr. Hsu is a 70 yo M with CHF, COPD, DM, atrial fibrillation on Xarelto who was brought int [facility] ED for SOB and CHRISTENSEN. He says sudden onset SOB woke him from his sleep. Reports increased cough. EMS says upon arrival his room air sats were 84%, and he was diaphoretic and cool to the touch. Sats have improved to 98% on BIPAP. He was given IV steroids by EMS, and IV Lasix in the ED. At bedside now, he is comfortable on BIPAP and able to talk. He has had multiple admissions for CHF and COPD exacerbations this year. WBC 12 BUN 24 Cr 1.59 GFR 43 Glu 190 BNP 5488 Allergies No Known Allergies Allergy (Verified 01/13/21 22:24) Home Medications: Gabapentin [Neurontin*] 3 cap PO TID 12/02/16 Aspirin 81 mg PO DAILY 11/10/17 glipiZIDE [Glucotrol] 10 mg PO DAILY 11/10/17 Metformin ER [Glucophage ER*] 1,000 mg PO BID 02/17/18 Aripiprazole [Abilify] 30 mg PO DAILY 08/28/20 Atorvastatin Calcium [Lipitor] 40 mg PO BEDTIME 08/28/20 Losartan Potassium [Cozaar] 100 mg PO DAILY 08/28/20 Rivaroxaban [Xarelto*] 20 mg PO DAILY 6PM 08/28/20 Albuterol Neb [Proventil 0.083% Neb Soln] 2.5 mg NEB [id number] PRN #120 amp 08/29/20 Budesonide/Formoterol Fumarate [Symbicort 160-4.5 Mcg Inhaler] 1 puff IH DAILY PRN 09/17/20 Spironolactone [Aldactone] 25 mg PO DAILY #30 tablet 09/23/20 Amiodarone HCl 100 mg PO DAILY 30 Days #30 tablet 01/14/21 Furosemide [Lasix*] 40 mg PO BID #60 tab 01/14/21 levoFLOXacin [Levaquin] 750 mg PO DAILY #5 tab 03/27/21 predniSONE [Deltasone] 40 mg PO DAILY #10 tab 03/27/21 - Past Medical/Surgical History Diabetic: Yes -: Hypertension -: Diabetes mellitus type 2 -: Posttraumatic stress disorder -: Anxiety -: Hepatitis-C -: Hyperlipidemia -: CAD, stent placement x2 -: Obstructive sleep apnea -: Obesity -: Diabetic neuropathy -: History pancreatitis -: COPD, tobacco abuse -: 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 - Family History Father -: Other (see notes) Notes: CHF Mother -: Cancer Notes: breast cancer Sister -: Cancer Notes: colon cancer Brother -: Cancer Notes: throat cancer - Social History Smoking Status: Former smoker Alcohol use: No CD- Drugs: No Caffeine use: Yes Review of Systems 10-point ROS is otherwise unremarkable General: Sweats Eyes: Unremarkable ENT: Unremarkable Respiratory: Cough, Shortness of Breath, SOB with Excertion, Wheezing, As per HPI Cardiovascular: Orthopnea, Paroxysmal Noc. Dyspnea Gastrointestinal: Unremarkable Genitourinary: Unremarkable Musculoskeletal: Unremarkable Integumentary: Unremarkable Neurological: Unremarkable Lymphatics: Unremarkable Physical Examination - Physical Exam General: Alert, Obese HEENT: Atraumatic, PERRLA, Mucous membr. moist/pink, EOMI, Sclerae nonicteric Neck: Supple, 2+ carotid pulse no bruit, No LAD, Without JVD or thyroid abnormality Respiratory: Diminished, Expiratory wheezes Cardiovascular: Normal S1 S2, Irregular heart rate/rhythm Gastrointestinal: Normal bowel sounds, No tenderness Musculoskeletal: No tenderness Integumentary: No rashes Neurological: Normal speech, Normal strength at 5/5 x4 extr, Normal tone, Normal affect Lymphatics: No axilla or inguinal lymphadenopathy - Studies Laboratory Data (last 24 hrs) 04/19/21 03:20: PT 14.1 H, INR 1.22 04/19/21 03:20: WBC 12.00 H, Hgb 12.1 L, Hct 36.6 L, Plt Count 236 04/19/21 03:20: Sodium 143, Potassium 3.9, BUN 24 H, Creatinine 1.59 H, Glucose 190 H, Magnesium 1.8, Total Bilirubin 0.3, AST 13 L, ALT 16, Alkaline Phosphatase 75 Assessment and Plan - Problems (Diagnosis) (1) Acute exacerbation of chronic obstructive airways disease Onset Date: 02/18/18 Current Visit: No Status: Acute (2) Acute on chronic diastolic (congestive) heart failure Onset Date: 05/07/17 Current Visit: No Status: Acute (3) Acute respiratory failure with hypoxia Current Visit: No Status: Acute (4) Afib Current Visit: No Status: Chronic Qualifiers: Atrial fibrillation type: paroxysmal Qualified Code(s): I48.0 - Paroxysmal atrial fibrillation (5) Diabetes mellitus Onset Date: 12/03/16 Current Visit: No Status: Chronic (6) Hyperlipidemia Onset Date: 12/03/16 Current Visit: No Status: Chronic (7) Hypertension Onset Date: 05/07/17 Current Visit: No Status: Chronic Qualifiers: Hypertension type: primary hypertension Qualified Code(s): I10 - Essential (primary) hypertension - Plan cardiology consulted RT consulted, wean BIPAP today continue IV steroids, breathing treatments continue IV lasix, fluid restrict 1500cc daily, daily weights sliding scale insulin and accuchecks reconcile and continue home medications continue home amiodarone and xarelto Discharge Plan: Home Plan to discharge in: 48 Hours - Advance Directives Does patient have a Living Will: No Does patient have a Durable POA for Healthcare: No - Code Status/Comfort Care Code Status Assessed: Yes (full code ) Critical Care: No Time Spent Managing Pts Care (In Minutes): 70
[2021-04-19] MEDS ORDERED: IPRATROPIUM BROM 0.5MG/2.5ML NEB PRN (06:24)
[2021-04-19] MEDS ORDERED: ALBUTEROL 2.5 MG/3 ML NEB SOL NEB PRN (06:24)
[2021-04-19] MEDS ORDERED: ACETAMINOPHEN 500 MG TAB PO PRN (06:24)
[2021-04-19] MEDS ORDERED: ONDANSETRON 4 MG/2 ML VIAL IV PRN (06:24)
[2021-04-19] MEDS: INSULIN -REGULAR HUMAN 50 UNIT/0.5 ML ML SQ SCH ×4 (07:30→20:55)
--- NOTE | 2021-04-19 07:35 | RAD REPORT ---
EXAM DESCRIPTION: RAD - Chest Single View - 04/19/2021 4:31 am CLINICAL HISTORY: DYSPNEA COMPARISON: Chest Single View dated 03/26/2021; Chest Single View dated 01/13/2021; Chest Single View dated 12/29/2020; Chest Single View dated 09/18/2020 FINDINGS: Lines: None. Lungs: Similar diffuse prominence of the pulmonary interstitium. Pleural: No significant pleural effusions or pneumothorax. Cardiac: Mild cardiomegaly. Sternotomy. Bones: No acute fractures. Other: IMPRESSION: Mild interstitial edema without significant change compared with 03/26/2021.
[2021-04-19 07:45] VITALS: BMI 35.4
--- NOTE | 2021-04-19 07:48 | EKG ---
Test Date: 2021-04-19 Test Time: 03:21:34 [employer]formers: BASILIO MEASUREMENT RESULTS: Intervals: Rate: 93 OK: QRSD: 122 QT: 384 QTc: 477 [place]: P: OK: QRS: -57 T: 192 INTERPRETIVE STATEMENTS: Atrial fibrillation with a competing junctional pacemaker Left axis deviation Left ventricular hypertrophy with QRS widening ST & T wave abnormality, consider lateral ischemia or digitalis effect Abnormal ECG Compared to ECG 03/26/2021 05:55:58 Sinus rhythm no longer present Atrial premature complex(es) no longer present Aberrant conduction of supraventricular beat(s) no longer present ST (T wave) deviation still present Possible ischemia still present Electronically Signed On 04-19-21 07:47:57 LAB MANAGER by Jose Nunn
[2021-04-19] MEDS: METHYLPREDNISOLONE 40 MG INJ IV SCH ×2 (08:50→18:24)
[2021-04-19] MEDS: FUROSEMIDE 40 MG/4 ML VIAL IV SCH ×2 (08:50→18:24)
[2021-04-19] MEDS: AMIODARONE HCL 200 MG TAB PO SCH (08:51)
[2021-04-19] MEDS ORDERED: POTASSIUM CL SA 10 MEQ TAB PO ONE (09:00)
[2021-04-19] MEDS ORDERED: MAGNESIUM SULFATE 1 gm IVPB 1 GM/100 ML BAG IV ONE (09:00)
[2021-04-19] MEDS ORDERED: HOME MED 1 EA UNK (Budesonide/Formoterol Fumarate [Symbicort 160-4.5 Mcg Inhaler] 10.2 GM IH PRN (14:09)
--- NOTE | 2021-04-19 14:24 | P.PN ---
Date of Service: 04/19/21 Patient seen and examined. He states he feels much better. He states the shortness of breath is significantly improved. Blood pressure moderately elevated. Plan: I suspect patient symptoms mostly related to COPD exacerbation. Scheduled bronchodilators. IV steroid. Resume Symbicort. Continue IV Lasix. He is off BiPAP. Resume home antihypertensives. Added amlodipine for blood pressure control. Monitor renal function.
[2021-04-19] MEDS: AMLODIPINE 5 MG TAB PO SCH (15:36)
[2021-04-19] MEDS: RIVAROXABAN 15 MG TABLET PO SCH (18:24)
[2021-04-19] MEDS: ATORVASTATIN 40 MG TAB PO SCH (20:55)
[2021-04-20] MEDS: METHYLPREDNISOLONE 40 MG INJ IV SCH ×3 (00:08→17:52)
[2021-04-20 05:18] LABS: Absolute Lymphocytes (CBC) 0.5 K/uL (0.7-4.9); Basophils % 0.3 % (0-1.3); Hematocrit 34.8 % (39.6-49.0); Lymphocytes % 5.2 % (15.3-44.8); MPV 8.3 fL (7.6-11.3); RBC Red Blood Cell Count 4.05 M/uL (4.33-5.43)
[2021-04-20 05:41] LABS: Albumin 3.1 g/dL (3.4-5.0); Bilirubin Total 0.5 mg/dL (0.2-1.0); Magnesium 2.1 mg/dL (1.8-2.4); Phosphorus 2.7 mg/dL (2.5-4.9); Potassium 3.3 mmol/L (3.5-5.1); Protein, Total 6.8 g/dL (6.4-8.2)
[2021-04-20] MEDS ORDERED: POTASSIUM CL SA 10 MEQ TAB PO ONE (05:47)
[2021-04-20 05:52] LABS: Platelet Estimate ADEQ
[2021-04-20 05:53] LABS: Anisocytosis 1+; Blood Morphology Comment NOTED (NOT SEEN)
[2021-04-20] MEDS ORDERED: ARIPIPRAZOLE 30 MG PO SCH (09:00)
[2021-04-20] MEDS ORDERED: HOME MED 1 EA UNK (Losartan Potassium [Cozaar] 25 MG Tablet) PO SCH (09:00)
--- NOTE | 2021-04-20 09:57 | P.PN ---
Subjective Date of Service: 04/20/21 Chief Complaint: CHF Exacerbation Patient states he is feeling much better today. BiPAP weaned off He is currently tolerating room air. Physical Examination - Vital Signs Temperature: 96.8 F Blood Pressure: 124/58 Pulse: 97 Respirations: 18 Pulse Ox (%): 95 - Physical Exam General: Alert, In no apparent distress, Oriented x3 HEENT: Mucous membr. moist/pink, EOMI, Sclerae nonicteric Neck: Supple, JVD not distended Respiratory: Clear to auscultation bilaterally, Normal air movement Cardiovascular: Normal S1 S2, Edema (Trace bilateral pedal edema), Irregular heart rate/rhythm Gastrointestinal: Normal bowel sounds, Soft and benign, Non-distended, No tenderness Musculoskeletal: No swelling, No tenderness Neurological: Normal speech, Normal strength at 5/5 x4 extr Assessment And Plan - Current Problems (Diagnosis) (1) Acute exacerbation of chronic obstructive airways disease Onset Date: 02/18/18 Current Visit: No Status: Acute (2) Acute on chronic diastolic (congestive) heart failure Onset Date: 05/07/17 Current Visit: No Status: Acute (3) Acute respiratory failure with hypoxia Current Visit: No Status: Acute (4) Afib Current Visit: No Status: Chronic Qualifiers: Atrial fibrillation type: paroxysmal Qualified Code(s): I48.0 - Paroxysmal atrial fibrillation (5) Morbid obesity Onset Date: 05/07/17 Current Visit: No Status: Chronic (6) Obstructive sleep apnea Onset Date: 11/11/17 Current Visit: No Status: Chronic (7) Type 2 diabetes mellitus without complications Onset Date: 05/07/17 Current Visit: No Status: Chronic Qualifiers: Diabetes mellitus skilled nursing insulin use: without assistant bookkeeper use Qualified Code(s): E11.9 - Type 2 diabetes mellitus without complications - Plan Acute respiratory failure resolved. Patient is currently tolerating room air. He states he feels much better. Continue IV Lasix for 1 more day. We will repeat chest x-ray to follow CHF. Continue IV steroid and scheduled bronchodilators for COPD. Insulin sliding scale for glucose management. Watch for steroid-induced hyperglycemia. Heart rate is controlled. Continue home medications-amiodarone and Xarelto for A. fib. Most recent echocardiogram on September 2020 shows normal EF. Renal function is stable on the IV Lasix. Home oxygen evaluation.
[2021-04-20] MEDS: FUROSEMIDE 40 MG/4 ML VIAL IV SCH ×2 (10:06→17:52)
[2021-04-20] MEDS: ARIPiprazole 5 MG TAB PO SCH (10:06)
[2021-04-20] MEDS: AMIODARONE HCL 200 MG TAB PO SCH (10:07)
[2021-04-20] MEDS: AMLODIPINE 5 MG TAB PO SCH (10:07)
[2021-04-20] MEDS: LOSARTAN POTASSIUM 50 MG TABLET PO SCH (10:07)
[2021-04-20] MEDS: INSULIN -REGULAR HUMAN 50 UNIT/0.5 ML ML SQ SCH ×4 (10:08→20:10)
[2021-04-20] MEDS: SPIRONOLACTONE 25 MG TABLET PO SCH (10:08)
[2021-04-20] MEDS: RIVAROXABAN 15 MG TABLET PO SCH (17:52)
[2021-04-20] MEDS: ATORVASTATIN 40 MG TAB PO SCH (20:09)
[2021-04-21] MEDS: METHYLPREDNISOLONE 40 MG INJ IV SCH ×2 (00:48→09:29)
[2021-04-21 06:12] LABS: Magnesium 2.1 mg/dL (1.8-2.4); Phosphorus 2.6 mg/dL (2.5-4.9); Potassium 3.3 mmol/L (3.5-5.1)
--- NOTE | 2021-04-21 08:49 | RAD REPORT ---
EXAM DESCRIPTION: RAD - Chest Single View - 04/21/2021 5:31 am CLINICAL HISTORY: f/u CHF Chest pain. COMPARISON: Chest Single View dated 04/19/2021; Chest Single View dated 03/26/2021; Chest Single Vie w dated 01/13/2021; Chest Single View dated 12/29/2020; Chest For Pe Angio dated 12/29/2020 FINDINGS: Portable technique limits examination quality. The lungs are mildly emphysematous but grossly clear. The cardiac size is mildly prominent. No displa sofia fractures.Sternotomy wires are present. IMPRESSION: Mild diffuse COPD.
[2021-04-21] MEDS ORDERED: POTASSIUM CL SA 10 MEQ TAB PO ONE (09:00)
[2021-04-21] MEDS: LOSARTAN POTASSIUM 50 MG TABLET PO SCH (09:22)
[2021-04-21] MEDS: AMLODIPINE 5 MG TAB PO SCH (09:22)
[2021-04-21] MEDS: AMIODARONE HCL 200 MG TAB PO SCH (09:23)
[2021-04-21] MEDS: SPIRONOLACTONE 25 MG TABLET PO SCH (09:24)
[2021-04-21] MEDS: FUROSEMIDE 40 MG/4 ML VIAL IV SCH (09:24)
[2021-04-21] MEDS: INSULIN -REGULAR HUMAN 50 UNIT/0.5 ML ML SQ SCH (09:24)
[2021-04-21] MEDS: ARIPiprazole 5 MG TAB PO SCH (09:28)
[2021-04-21 09:29] VITALS: BP 172/83
[2021-04-21 09:37] VITALS: O2SAT 99
--- NOTE | 2021-04-21 10:10 | P.DS ---
Admission Date: 04/19/21 Discharge Date: 04/21/21 Disposition: ROUTINE DISCHARGE Discharge Condition: FAIR Reason for Admission: CHF Exacerbation - Problems (1) Acute exacerbation of chronic obstructive airways disease Onset Date: 02/18/18 Current Visit: No Status: Acute (2) Acute on chronic diastolic (congestive) heart failure Onset Date: 05/07/17 Current Visit: No Status: Acute (3) Acute respiratory failure with hypoxia Current Visit: No Status: Acute (4) Afib Current Visit: No Status: Chronic Qualifiers: Atrial fibrillation type: paroxysmal Qualified Code(s): I48.0 - Paroxysmal atrial fibrillation (5) Morbid obesity Onset Date: 05/07/17 Current Visit: No Status: Chronic (6) Obstructive sleep apnea Onset Date: 11/11/17 Current Visit: No Status: Chronic (7) Type 2 diabetes mellitus without complications Onset Date: 05/07/17 Current Visit: No Status: Chronic Qualifiers: Diabetes mellitus mcfp insulin use: without ingot caster use Qualified Code(s): E11.9 - Type 2 diabetes mellitus without complications Brief History of Present Illness: Mr. Hsu is a 70 yo M with CHF, COPD, DM, atrial fibrillation on Xarelto who was brought int [facility] ED for SOB and CHRISTENSEN. He says sudden onset SOB woke him from his sleep. Also reported increased cough. EMS says upon arrival his room air sats were 84%, and he was diaphoretic and cool to the touch. Sats have improved to 98% on BIPAP. He was given IV steroids by EMS, and IV Lasix in the ED. He has had multiple admissions for CHF and COPD exacerbations this year. WBC 12 BUN 24 Cr 1.59 GFR 43 Glu 190 BNP 5488. Patient hospitalized for further management. Hospital Course: Patient admitted to the medical floor and treated for COPD exacerbation with IV steroids, scheduled bronchodilators. He was also treated for CHF with IV Lasix. He was weaned off BiPAP to oxygen by nasal cannula and eventually to room air. Patient clinically improved with treatment. Repeat chest x-ray shows only evidence of mild COPD. Patient currently compensated for CHF. He has been ambulating without oxygen. He is deemed stable for discharge. Patient noted to be hypertensive and started on amlodipine. He is also prescribed home nebulizer treatment for COPD exacerbation. Vital Signs/Physical Exam: Temp Pulse Resp BP Pulse Ox 97 F 128 H 19 172/83 H 96 04/21/21 04:00 04/21/21 09:24 04/21/21 04:00 04/21/21 09:24 04/21/21 04:00 General: Alert, In no apparent distress, Oriented x3 HEENT: Mucous membr. moist/pink Neck: Supple, JVD not distended Respiratory: Clear to auscultation bilaterally, Normal air movement Cardiovascular: No edema, Normal S1 S2, Irregular heart rate/rhythm Gastrointestinal: Normal bowel sounds, Soft and benign, Non-distended, No tenderness Musculoskeletal: No swelling Integumentary: No rashes Neurological: Normal strength at 5/5 x4 extr Laboratory Data at Discharge: WBC 10.60 K/uL (4.3-10.9) 04/20/21 05:02 Hgb 11.4 g/dL (13.6-17.9) L 04/20/21 05:02 Hct 34.8 % (39.6-49.0) L 04/20/21 05:02 Plt Count 206 K/uL (152-406) 04/20/21 05:02 PT 14.1 SECONDS (9.5-12.5) H 04/19/21 03:20 INR 1.22 04/19/21 03:20 Sodium 141 mmol/L (136-145) 04/21/21 05:22 Potassium 3.3 mmol/L (3.5-5.1) L 04/21/21 05:22 BUN 35 mg/dL (7-18) H 04/21/21 05:22 Creatinine 1.37 mg/dL (0.55-1.3) H 04/21/21 05:22 Glucose 181 mg/dL (74-106) H 04/21/21 05:22 Phosphorus 2.6 mg/dL (2.5-4.9) 04/21/21 05:22 Magnesium 2.1 mg/dL (1.8-2.4) 04/21/21 05:22 Total Bilirubin 0.5 mg/dL (0.2-1.0) 04/20/21 05:02 AST 10 U/L (15-37) L 04/20/21 05:02 ALT 17 U/L (12-78) 04/20/21 05:02 Alkaline Phosphatase 75 U/L (45-117) 04/20/21 05:02 Home Medications: Gabapentin [Neurontin*] 3 cap PO TID 12/02/16 Aspirin 81 mg PO DAILY 11/10/17 glipiZIDE [Glucotrol] 10 mg PO DAILY 11/10/17 Metformin ER [Glucophage ER*] 1,000 mg PO BID 02/17/18 Aripiprazole [Abilify] 30 mg PO DAILY 08/28/20 Atorvastatin Calcium [Lipitor] 40 mg PO BEDTIME 08/28/20 Losartan Potassium [Cozaar] 100 mg PO DAILY 08/28/20 Rivaroxaban [Xarelto*] 20 mg PO DAILY 6PM 08/28/20 Albuterol Neb [Proventil 0.083% Neb Soln] 2.5 mg NEB [id number] PRN #120 amp 08/29/20 Budesonide/Formoterol Fumarate [Symbicort 160-4.5 Mcg Inhaler] 1 puff IH DAILY PRN 09/17/20 Spironolactone [Aldactone] 25 mg PO DAILY #30 tablet 09/23/20 Amiodarone HCl 100 mg PO DAILY 30 Days #30 tablet 01/14/21 Furosemide [Lasix*] 40 mg PO BID #60 tab 01/14/21 Albuterol Neb [Proventil 0.083% Neb Soln] 2.5 mg NEB Q6HP PRN #120 amp 04/21/21 Amlodipine [Norvasc*] 10 mg PO DAILY #30 tab 04/21/21 Ipratropium Neb [Atrovent*] 0.5 mg NEB Q8UEARY PRN #120 amp 04/21/21 Nebulizer [Aeroneb Go Nebulizer] 1 each QID #1 each 04/21/21 predniSONE [Prednisone*] 40 mg PO DAILY #10 tab 04/21/21 New Medications: Ipratropium Neb [Atrovent*] 0.5 mg NEB [id number] PRN #120 amp PRN Reason: Shortness Of Breath Albuterol Neb [Proventil 0.083% Neb Soln] 2.5 mg NEB Q6HP PRN #120 amp PRN Reason: Shortness Of Breath Nebulizer [Aeroneb Go Nebulizer] 1 each QID #1 each Amlodipine [Norvasc*] 10 mg PO DAILY #30 tab predniSONE [Prednisone*] 40 mg PO DAILY #10 tab Diet: ADA Activity: Ad margarita Followup: Unknown,U [Primary Care Provider] - 1 Week Time spent managing pt's care (in minutes): 38
[2021-04-21 10:21] VITALS: TEMP 97.2
--- NOTE | 2021-04-23 14:21 | CON ---
Date of Consultation: 04/19/2021 Reason For Consultation: Congestive heart failure. History Of Present Illness: Mr. Hsu is 70. Has a history of coronary artery disease status post CABG, history of atrial fibrillation on amiodarone and Xarelto, history of COPD. He has a history o f bipolar disorder, chronic diastolic congestive heart failure, neuropathy, diabetes, and hypertensio n. Medications: He takes Xarelto, Aldactone, glipizide, amiodarone, Lasix, inhalers, Neurontin, aspirin , Abilify, losartan, metformin, and Cozaar. Allergies: HE IS ALLERGIC TO DELTASONE. Review of Systems: Negative. Social History: Negative. Family History: Negative. Review of Systems: Noncontributory. Mr. Shadi Damon. He came in with dyspnea on exertion. No chest pain. No nausea, v omiting, diaphoresis. Had PND, orthopnea, and pedal edema. He denied palpitation. Denied any synco pe. Denied any fever or chills. He is already ruled out for CA. Physical Examination: General: He was in a BiPAP. Vital Signs: Stable, afebrile, and sinus rhythm. HEENT: Negative. Neck: Supple with no bruit. Chest: Clear to auscultation and percussion. Cardiac: Revealed a regular rhythm and rate with S4 gallops. No murmurs or rubs. Abdomen: Benign. Extremities: Revealed 1+ edema. Diagnostic Data: Creatinine 1.59. BNP was 5400. His pO2 was 205, pCO2 was 52 with a pH of 7.35. E chocardiogram in November 2020 showed an EF of 50% to 55% Impression And Plan: 1.Acute on chronic diastolic congestive heart failure. He is on appropriate therapy. Continue his present regimen. No need to repeat an echo now. 2.Atrial fibrillation. He is in sinus rhythm. On amiodarone and Xarelto. 3.Coronary artery disease, status post coronary artery bypass graft. 4.Neuropathy. 5.Hypertension, on losartan. 6.Diabetes. 7.Bipolar disorder. Again, I would continue present regimen, diurese him. No reason for repeat ech o. He can go home whenever it is okay with Dr. Ramirez and we will see him in the office as an outpat ient. NB/MODL Voice ID: [id number] Report ID: [id number]
== END 2021-04-21 12:05 | disposition home or self-care (01) | DRG 291 ==
LOC: ER 03:08 → ERHOLD 04:48 → 2ND 06:06
PROVIDERS: ADMIT Internal Medicine; ATTEND Internal Medicine
DX: I11.0 Hypertensive heart disease with heart failure (principal); J96.01 Acute respiratory failure with hypoxia; I50.33 Acute on chronic diastolic (congestive) heart failure; J44.1 Chronic obstructive pulmonary disease with (acute) exacerbation; E11.40 Type 2 diabetes mellitus with diabetic neuropathy, unspecified; E78.5 Hyperlipidemia, unspecified; G47.33 Obstructive sleep apnea (adult) (pediatric); I48.0 Paroxysmal atrial fibrillation; I25.2 Old myocardial infarction; I25.10 Atherosclerotic heart disease of native coronary artery without angina pectoris; Z79.82 Long term (current) use of aspirin; Z79.84 Long term (current) use of oral hypoglycemic drugs; Z79.01 Long term (current) use of anticoagulants; Z79.52 Long term (current) use of systemic steroids; Z79.899 Other long term (current) drug therapy; Z95.5 Presence of coronary angioplasty implant and graft; Z87.891 Personal history of nicotine dependence; Z88.8 Allergy status to other drugs, medicaments and biological substances; Z20.822 Contact with and (suspected) exposure to COVID-19
CPT/HCPCS: 36415; 71045; 80048; 80053; 80076; 82805; 82947; 83735; 83880; 84100; 84484; 85025; 85610; 93005; 94660; 94760; 96374; 99285; J1940; J2920; J3475; U0003

== ENCOUNTER 2021-06-06 19:53 | Inpatient (IN) | payer OTHER ==
--- OUTSIDE RECORDS SUMMARY | 2021-06-06 19:59 | XMS REPORT | Continuity of Care Document ---
:1950 Author Organization [facility] t Address [address] [place] [address] Care Team Providers Name Role Phone [place], [facility] [phone] [id number] Attending Clinician Unavailable AMBER AZAR Attending Clinician Unavailable Isa Monreal Attending Clinician Unavailable SHERI K.HKhadar Attending Clinician Unavailable Sheri ESCOTO, K.H. Attending Clinician SHERRY Attending Clinician Unavailable Doctor Unassigned, Name Attending Clinician Unavailable JAQUELIN Attending Clinician Unavailable Asha GUZMÁN Attending Clinician Unavailable Eloisa LYMAN Attending Clinician Unavailable JUAN FRANCISCO SÁNCHEZ Attending Clinician Unavailable [id number] Admitting Clinician Unavailable DENICE WHITESIDE Admitting Clinician Unavailable Isa Monreal Admitting Clinician Unavailable Eloisa LYMAN Admitting Clinician Unavailable JUAN FRANCISCO SÁNCHEZ Admitting Clinician Unavailable Payers Payer Name Policy Type Policy Number Effective Date Expiration Date Eloisa holley [facility] [id number] [facility] [id number] 2021 2021 ADMINISTRATION 00:00:00 00:00:00 [facility] [id number] 2009 ADMINISTRATION 00:00:00 Problems Condition Condition Condition Status Onset Resolution Last Treating Co mments Source Name Details Category Date Date Treatment Clinician Date Hx of CABG Hx of CABG Disease Active U nivers 9- ity of 00:00: [place] 00 Medical Branch Persistent Persistent Disease Active U nivers atrial atrial 01-31 [place] Acute Acute Disease Active [facility] - Luke [facility] - respirator respirator 00:00: Me dical y failure y failure 00 Cent er Acute Acute Disease Active [facility] respirator respirator 9- Katerine kes - y failure y failure [...] on [facility] 05-06 [facility] Hepatitis Hepatitis Disease Active 2006-05 Overview: Univers -18 Formattin ity of 00:00: g of this [place] [id number] note Medical might be Branch different from the original. 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 on NORRIS on Disease Active Overview: MELY Monahan CPAP CPAP claims [facility] e with Center CPAP Current Current Disease Active MELY Monahan smoker smoker [facility] Allergies, Adverse Reactions, Alerts Allergy Allergy Status Severity Reaction(s) Onset Inactive Treating Comm ents Source Name Type Date Date Clinician No Known DA Active [facility] 08[facility]12 [facility] 00:00: [address] No Known DA Active U [facility] Allergie 08-12 [facility] 00:00: [address] NO KNOWN Drug Active [facility] ALLERGIE Class ity of S [facility] Social History Social Habit Start Date Stop Date Quantity Comments Source Exposure to Not sure [facility] SARS-CoV-2 (event) [facility] Cigarettes smoked 2021-02-23 2021-02-23 Univers ity of current (pack per 00:00:00 00:00:00 [facility] ) - Reported Branch Tobacco use and 2021-02-23 2021-02-23 Never used Universit y of exposure 00:00:00 00:00:00 [facility] Cigarette 2018-01-22 2018-01-22 MELY Guido - pack-years 00:00:00 00:00:00 [facility] Alcohol intake 2018-01-22 2018-01-22 Current MELY Monahan [facility] - 00:00:00 00:00:00 non-drinker of Medical nter alcohol (finding) Sex Ass[birth year] At [birth year] Universit y of 00:00:00 00:00:00 [facility] Smoking Status Start Date Stop Date Source Current every day smoker 2021-02-23 00:00:00 Uni versity of [place] [facility] Medications Ordered Filled Start Stop Current Ordering [...] mouth 2 ity of tablet 13:23: (two) [place] 23 times Medical daily with Branch meals. carvedilol 2020-05 Yes 25mg Take 25 mg U nivers 25 mg 0-21 by mouth 2 ity of tablet 13:23: (two) [place] 23 times Medical daily with Branch meals. carvedilol 2020-05 Yes 25mg Take 25 mg U nivers 25 mg 0-21 by mouth 2 ity of tablet 13:23: (two) [place] 23 times Medical daily with Branch meals. carvedilol 2020-05 Yes 25mg Take 25 mg U nivers 25 mg 0-21 by mouth 2 ity of tablet 13:23: (two) [place] 23 times Medical daily with Branch meals. carvedilol 2020-05 Yes 25mg Take 25 mg U nivers 25 mg 0-21 by mouth 2 ity of tablet 13:23: (two) [place] 23 times Medical daily with Branch meals. carvedilol 2020-05 Yes 25mg Take 25 mg U nivers 25 mg 0-21 by mouth 2 ity of tablet 13:23: (two) [place] 23 times Medical daily with Branch meals. rivaroxaban 2020-05 Yes Take by Un emilia 20 mg 0-21 mouth ity of tablet 13:23: daily. [address] rivaroxaban 2020-05 Yes Take by Un emilia 20 mg 0-21 mouth ity of tablet 13:23: daily. [address] Branch rivaroxaban 2020-05 Yes Take by Un emilia 20 mg 0-21 mouth ity of tablet 13:23: daily. [address] rivaroxaban 2020-05 Yes Take by Un emilia 20 mg 0-21 mouth ity of tablet 13:23: daily. [address] rivaroxaban 2020-05 Yes Take by Un emilia 20 mg 0-21 mouth ity of tablet 13:23: daily. [address] rivaroxaban 2020-05 Yes Take by Un emilia 20 mg 0-21 mouth ity of tablet 13:23: daily. [address] Branch losartan 2020-05 Yes 100mg Take 100 [...] tablet 13:23: mouth [place] 14 daily. Medical [place] losartan 2020-05 Yes 100mg Take 100 Univ [...] by mouth ity of tablet 13:23: at [place] 08 bedtime. Medical Branch atorvastati 2020-05 Yes 40mg Take 40 mg Univers n 40 mg 0-21 by mouth ity of tablet 13:23: at [place] 08 bedtime. Medical Branch atorvastati 2020-05 Yes 40mg Take 40 mg Univers n 40 mg 0-21 by mouth ity of tablet 13:23: at [place] 08 bedtime. Medical Branch aspirin 81 2020-05 Yes 81mg Take 81 mg U nivers mg EC 0-21 by mouth ity of tablet 13:23: daily. [place] [address] Medical Branch aspirin 81 2020-05 Yes 81mg Take 81 mg U nivers mg EC 0-21 by mouth ity of tablet 13:23: daily. [place] [address] Medical Branch aspirin 81 2020-05 Yes 81mg Take 81 mg U nivers mg EC 0-21 by mouth ity of tablet 13:23: daily. [place] [address] Medical Branch aspirin 81 2020- Yes 81mg Take 81 mg U nivers mg EC 0-21 by mouth ity of tablet 13:23: daily. [place] [address] Medical Branch aspirin 81 2020-05 Yes 81mg Take 81 mg U nivers mg EC 0-21 by mouth ity of tablet 13:23: daily. [place] [address] Medical Branch aspirin 81 2020-1 Yes 81mg Take 81 mg U nivers mg EC 0-21 by mouth ity of tablet 13:23: daily. [place] [facility] amiodarone 2020-05 Yes 100mg Take [...] by ity of capsule 11:28: mouth 3 [place] [address] (three) Medical times Branch daily. metFORMIN Yes 1000mg Take 1,000 Univers 1,000 mg 9-28 mg by ity of tablet 11:28: mouth 2 [place] [address] (two) Medical times Branch daily with meals. ARIPiprazol Yes 30mg Take 30 mg Univers e 30 mg 9-28 by mouth ity of tablet 11:28: daily. [place] [address] Medical Branch glipiZIDE Yes 10mg Take 10 mg Un emilia 10 mg 9-28 by mouth ity of tablet 11:28: daily. [place] [address] Medical Branch gabapentin Yes 1200mg Take 1,200 Univers 400 mg 9-28 mg by ity of capsule 11:28: mouth 3 [place] 41 (three) Medical times Branch daily. metFORMIN Yes 1000mg Take 1,000 Univers 1,000 mg 9-28 mg by ity of tablet 11:28: mouth 2 [place] [address] (two) Medical times Branch daily with meals. ARIPiprazol 2021-0 Yes 30mg Take 30 mg Univers e 30 mg 9-28 by mouth ity of tablet 11:28: daily. [address] glipiZIDE 2021-0 Yes 10mg Take 10 mg Un emilia 10 mg 9-28 by mouth ity of tablet 11:28: daily. [address] gabapentin 2021-0 Yes 1200mg Take 1,200 Univers 400 mg 9-28 mg by ity of capsule 11:28: mouth 3 [place] [address] (three) Medical times Branch daily. metFORMIN 2021-0 Yes 1000mg Take 1,000 Univers 1,000 mg 9-28 mg by ity of tablet 11:28: mouth 2 [place] [address] (two) Medical times Vandervoort daily with meals. ARIPiprazol 2021-0 Yes 30mg Take 30 mg Univers e 30 mg 9-28 by mouth ity of tablet 11:28: daily. [address] glipiZIDE 2020-0 Yes 10mg Take 10 mg Un emilia 10 mg 9-28 by mouth ity of tablet 11:28: daily. [address] gabapentin 2020-0 Yes 1200mg Take 1,200 Univers 400 mg 9-28 mg by ity of capsule 11:28: mouth 3 [place] [address] (three) Medical times Vandervoort daily. metFORMIN 2021-0 Yes 1000mg Take 1,000 Univers 1,000 mg 9-28 mg by ity of tablet 11:28: mouth 2 [place] [address] (two) Medical times Vandervoort daily with meals. ARIPiprazol 2021-0 Yes 30mg Take 30 mg Univers e 30 mg 9-28 by mouth ity of tablet 11:28: daily. [address] glipiZIDE 1-0 Yes 10mg Take 10 mg Un emilia 10 mg 9-28 by mouth ity of tablet 11:28: daily. [address] gabapentin 1-0 Yes 1200mg Take 1,200 Univers 400 mg 9-28 mg by ity of capsule 11:28: mouth 3 [place] [address] (three) Medical times Vandervoort daily. metFORMIN 2021-0 Yes 1000mg Take 1,000 Univers 1,000 mg 9-28 mg by ity of tablet 11:28: mouth 2 [place] [address] (two) Medical times Vandervoort daily with meals. ARIPiprazol 2021-0 Yes 30mg Take 30 mg Univers e 30 mg 9-28 by mouth ity of tablet 11:28: daily. [address] glipiZIDE Yes 10mg Take 10 mg Un emilia 10 mg 9-28 by mouth ity of tablet 11:28: daily. [address] gabapentin Yes 1200mg Take 1,200 Univers 400 mg 9-28 mg by ity of capsule 11:28: mouth 3 [place] [address] (three) Medical times Branch daily. metFORMIN Yes 1000mg Take 1,000 Univers 1,000 mg 9-28 mg by ity of tablet 11:28: mouth 2 [place] [address] (two) Medical times [place] daily with meals. ARIPiprazol Yes 30mg Take 30 mg Univers e 30 mg 9-28 by mouth ity of tablet 11:28: daily. [address] glipiZIDE Yes 10mg Take 10 mg Un emilia 10 mg 9-28 by mouth ity of tablet 11:28: daily. [address] XANAX 1 MG Yes 3 tabs Unive rs ORAL TAB 8-12 daily ity of 09:33: [address] XANAX 1 MG 2020-0 Yes 3 tabs Unive rs ORAL TAB 8-12 daily ity of 09:33: [address] XANAX 1 MG 2020-0 Yes 3 tabs Unive rs ORAL TAB 8-12 daily ity of 09:33: [address] XANAX 1 MG 2020-0 Yes 3 tabs Unive rs ORAL TAB 8-12 daily ity of 09:33: [address] XANAX 1 MG 2020-0 Yes 3 tabs Unive rs ORAL TAB 8-12 daily ity of 09:33: [address] XANAX 1 MG 2020-0 Yes 3 tabs Unive rs ORAL TAB 8-12 daily ity of 09:33: [address] carvedilol Yes 12.5mg Take 12.5 [facility] [...] [facility] - tablet 10:15: daily. Medical 53 [place] esomeprazol 2018-0 Yes 20mg QD Take [address] [facility] (NEXIUM) 9-20 by mouth [facility] - 20 MG 10:15: daily. Medical capsule 53 [place] gabapentin 2018-0 Yes 1200mg [id number] Take 1,[address] (NEURONTIN) 9-20 [id number] mg by L ukes - 600 MG [...] s - 5 MG tablet 10:15: daily. [facility] oralia 53 [place] carvedilol 2018-0 Yes 12.5mg Take 12.[address] (COREG) 25 9-20 mg by [facility]ukes - MG tablet 10:15: mouth 2 Medic al 53 (two) Center times daily with breakfast and dinner . clopidogrel 2018-0 Yes 75mg QD Take [address] (PLAVIX) 75 9-20 by mouth Luke s - mg tablet 10:15: daily. Medica l 53 [place] aspirin 81 2018-0 Yes 81mg QD Take [address] MG EC 9-20 by mouth [facility] - tablet 10:15: daily. [address] esomeprazol 2018-0 Yes 20mg QD Take [address] [facility] (NEXIUM) 9-20 by mouth [facility]ukes - 20 MG 10:15: daily. Medical capsule 53 [place] gabapentin 2018-0 Yes 1200mg [id number] Take 1,[address] (NEURONTIN) 9-20 [id number] mg by L ukes - 600 MG [...] 10:15: daily. Medi oralia 53 Center furosemide 0 Yes Resume [facility] (LASIX) 80 7-17 taking as Luke s - MG tablet 00:00: you were Medi oralia 00 prior to Center admission. polyethylen Yes Use daily [facility] e glycol 7-17 per Lukes - (GLYCOLAX) 00:00: package Medi oralia 17 gram 00 instructio Center packet ns. Is over the counter. furosemide Yes Resume [facility] (LASIX) 80 7-17 taking as Luke s - MG tablet 00:00: you were Medi oralia 00 prior to Center admission. polyethylen 20180 Yes Use daily [facility] e glycol 7-17 per [facility] - (GLYCOLAX) 00:00: package Medi oralia 17 gram 00 instructio Center packet ns. Is over the counter. Immunizations Ordered Filled Immunization Date Status Comments [facility] e Immunization Name Name SARS-COV-2 COVID-19 2020-07-23 Completed Unive rsity of PFIZER VACCINE 00:00:00 [facility] SARS-COV-2 COVID-19 2020-07-23 Completed Unive rsity of PFIZER VACCINE 00:00:00 [facility] SARS-COV-2 COVID-19 2020-07-23 Completed Unive rsity of PFIZER VACCINE 00:00:00 [facility] SARS-COV-2 COVID-19 2020-07-23 Completed Unive rsity of PFIZER VACCINE 00:00:00 [facility] SARS-COV-2 COVID-19 2020-07-23 Completed Unive rsity of PFIZER VACCINE 00:00:00 [facility] SARS-COV-2 COVID-19 2020-07-23 Completed Unive rsity of PFIZER VACCINE 00:00:00 [facility] SARS-COV-2 COVID-19 2020-07-02 Completed Unive rsity of PFIZER VACCINE 00:00:00 [facility] SARS-COV-2 COVID-19 2020-07-02 Completed Unive rsity of PFIZER VACCINE 00:00:00 [facility] SARS-COV-2 COVID-19 2020-07-02 Completed Unive rsity of PFIZER VACCINE 00:00:00 [facility] SARS-COV-2 COVID-19 2020-07-02 Completed Unive rsity of PFIZER VACCINE 00:00:00 [facility] SARS-COV-2 COVID-19 2020-07-02 Completed Unive rsity of PFIZER VACCINE 00:00:00 [facility] SARS-COV-2 COVID-19 2020-07-02 Completed Unive rsity of PFIZER VACCINE 00:00:00 [facility] Vital Signs Vital Name Observation Time Observation Value Comments Source Systolic blood 2021-02-23 18:11:00 116 mm[Hg] [facility] [place] pressure [facility] Diastolic blood 2021-02-23 18:11:00 76 mm[Hg] Unive rsity of [place] pressure [facility] Heart rate 2021-02-23 18:11:00 76 /min [facility] Body weight 2021-02-23 18:11:00 117.028 kg [facility] BMI 2021-02-23 18:11:00 34.99 kg/m2 [facility] Oxygen saturation 2021-02-23 18:11:00 96 /min [facility] [place] in Arterial blood Medical Br anch by Pulse oximetry Procedures Procedure Date / Time Performing Clinician Source Performed MEDICATION CORRESPONDENCE 2021-03-03 05:01:00 Doctor Cody [facility] AUTHORIZATION TO RELEASE 2021-02-23 05:01:00 Doctor Cody, [facility] PHI TO [facility] Plan of Care Planned Activity [...] 00:00:00 measurement Medical Center (procedure) [code = 19151175] Future Scheduled 2018-07-[address] Katerine kes - Test 00:00:00 measurement Medical Center (procedure) [code = 71023613] Future Scheduled 2014-11-[address] [...] 00:00:00 (1 of 1 - Medical Center [id number] PCV13) [code = PNEUMOCOCCAL 65+ YRS (1 of 1 - [id number] PCV13)] Future Scheduled 2013 PNEUMOCOCCAL 65+ YRS [facility] - Test 00:00:00 (1 of 1 - Medical Center [id number] PCV13) [code = PNEUMOCOCCAL 65+ YRS (1 of 1 - [id number]_Uqeuszb PCV13)] Future Scheduled 1998 SHINGLES VACCINES (1 [...] 00:00:00 examination Medical Center (regime/therapy) [code = 723823002] Future Scheduled 1958 Urine screening [facility] - Test 00:00:00 protein (procedure) Medical Center [code = 905368101] Future Scheduled 1958 DIABETIC EYE EXAM [facility] - Test 00:00:00 [code = DIABETIC EYE Medical Center EXAM] Future Scheduled [address] Holly es - Test 00:00:00 examination Medical Center (regime/therapy) [code = 566789285] Future Scheduled 1958 Urine screening [facility] - Test 00:00:00 protein (procedure) Medical Center [code = 643438092] Future Scheduled [address] [facility] es - Test 00:00:00 [facility] colon (procedure) [code = 909673402] Future Scheduled [address] [facility] Holly es - Test 00:00:00 [facility] colon (procedure) [code = 665425827] Encounters Start End Encounter Admission Attending Care Care Encounter Source Date/Time Date/Time Type Type Clinicians Facility Department ID 2021-06-01 Outpatient 3 [id number] [facility] RE[facility] [id number] [facility] 13:36:52 1229 2021-06-01 Outpatient 3 [id number] [facility] REF [id number] ENCT[facility] 13:36:02 1228 2021-05-04 Inpatient 3 MERY AZAR [facility] [id number] ENCTY 10:23:00 AMBER 1230 2020-08-11 Inpatient DUANE Menchaca [facility] [id number] [facility] 23:15:00 Nioti [id number] [facility] 2021-06-14 2021-06-14 Outpatient Isa WADE [facility] [id number] Univers 13:30:00 13:30:00 SENDIL [id number] [facility] 2021-05-31 2021-05-31 Telephone Sheri OHJOSE [id number] Univers 00:00:00 00:00:00 Sendil Letty DILLARD [id number] [facility] [id number] Lamonte ALVAREZ [phone] Wa dical [facility] 059 Branch [facility] 2021-05-12 2021-05-12 Outpatient Isa WADE [facility] [id number] Univers 14:00:00 14:00:00 [facility] [id number] [facility] [place] [facility]-05-12 2021-05-12 Outpatient Isa WADE [facility] [id number] Univers 14:00:00 14:00:00 SENDIL [facility] 2021-04-24 2021-04-24 Outpatient R SHERI [facility] [id number] Univers 13:30:00 13:30:[id number] it[address] [facility] 2021-03-23 2021-03-23 Outpatient R SHERRY [facility] [id number] Univers 13:20:00 13:20:00 RISHIDEANDRA [id number] ity o f [facility] 2021-03-23 2021-03-23 [facility] [id number] Univers 00:00:00 00:00:00 Sendlamin DILLARD [id number] ity [facility] [id number] [place] PROF[place] [phone] Wa dicut NAL [address] [place] [address] 2021-03-03 2021-03-03 Orders Doctor GALDAMEZ [id number] Univers 00:00:00 00:00:00 Only Unassigned, JOYCE [id number] [facility]y [facility] 4.2.7.2.686 Jameel as [phone] [address] 2021-02-23 2021-02-23 Outpatient R SHERI [facility] [id number] Univers 13:00:00 13:33:16 SENDIL ity [facility] 2021-02-23 2021-02-23 Office [facility] [id number] Univers 12:49:37 13:33:16 Visit Cailin [place] [id number] ity [facility] 4[place]2.7.2.[place] Profess[place] [phone] Wa dical nal 9 [facility] 2021-02-23 2021-02-23 Outpatient R WADE [facility] [id number] Univers 13:00:00 13:00:[id number] ity [address] [facility] 2021-02-23 2021-02-23 Orders Doctor GALDAMEZ [id number] Univers 00:00:00 00:00:00 Only Unassigned, JOYCE [id number] ity [facility] 4.2.7.2.686 Jameel as [id number] [address] 2021-01-31 2021-01-31 Outpatient R JAQUELIN [facility] [id number] Univers 11:40:00 16:13:45 SAYRA ity [facility] 2021-01-31 2021-01-31 [facility] [id number] Univers 11:40:00 11:40:00 SAYRA [id number] ity [facility] 2021-01-26 2021-01-26 Outpatient R SHERI [facility] [id number] Univers 00:00:00 00:00:00 [facility] [place] [facility]-01-25 2021-01-25 [facility] [id number] Univers 00:00:00 00:00:00 SENDIL [facility] 2021-01-12 2021-01-12 [facility] [id number] Univers 13:30:00 14:26:07 [facility] [place] 2021-01-12 2021-01-12 Out[facility] [id number] Univers 13:30:00 13:30:00 SENDIL [id number] [facility] 2020-12-15 2020-12-15 Office [facility] [id number] 08:50:21 09:50:59 Visit Sendil Letty D[place] [id number] [facility] 4.2.7.2.686 [phone] nal 059 [facility] 2020-12-15 2020-12-15 Outpatient [facility] [id number] Univers 09:00:00 09:00:00 SENDIL [facility] 2020-08-11 2020-08-11 Emergency X RAMRIEZ [facility] ERT [id number] Univers 14:46:00 14:46:00 [facility]ESH [facility] [place] 2007-02-17 2007-02-18 Outpatient [facility] [id number] Univers 00:00:00 08:13:49 2 [facility] Results Test Description Test Time Test Comments Results Result Comments Source GLUCOSE BEDSIDE TESTING 2020-08-13 12:07:00 Test Item Value Reference Range Interpretation Comme nts GLUCOSE BEDSIDE TESTING (test code = GLUBED) 137 MG/DL 60-99 H GLYCOSYLATED HEMOGLOBIN [id number] 11:19:00 Test Item Value Reference Range Interpretation [...] H (test code = MBG) BASIC METABOLIC [id number] 07:59:00 Test Item Value Reference Range Interpretation [...] MG/DL 8.4-10.2 N CA) PATIENT REFUSED; PER SHATHER M. (STEPHEN)LIPID PROFILE (CORONARY RISK)2020-08-13 07:59:00 Test Item [...] PATIENT REFUSED; PER ANTONIO Soto (STEPHEN)BASIC METABOLIC [id number] 07:50:00 Test Item Value Reference Range Interpretation [...] = LDL) PATIENT REFUSED; PER ANTONIO MOORE)PROTHROMBIN [id number] 07:46:00 Test Item Value Reference Range Interpretation [...] 3.0 - 4.5 PATIENT REFUSED; PER:ANTONIO MOORE)PTT [id number] 07:46:00 Test Item Value Reference Range Interpretation Comments PTT ACTIVATED (test code = APTT) 39.0 SECONDS 25.1-36.5 H PATIENT REFUSED; PER:ANTONIO MOORE)CBC W/AUTO [id number] 07:35:00 Test Item Value Reference Range Interpretation [...] NRBC#) PATIENT REFUSED; NORM Soto (RN)GLUCOSE BEDSIDE [id number] 04:56:00 Test Item Value Reference Range Interpretation Comments GLUCOSE BEDSIDE TESTING (test code 123 MG/DL 60-99 H = GLUBED) GLUCOSE BEDSIDE [id number] 18:50:00 Test Item Value Reference Range Interpretation Comments GLUCOSE BEDSIDE TESTING (test code 221 MG/DL 60-99 H = GLUBED) GLUCOSE BEDSIDE [id number] 15:43:00 Test Item Value Reference Range Interpretation Comments GLUCOSE BEDSIDE TESTING (test code 126 MG/DL 60-99 H = GLUBED) GLUCOSE BEDSIDE [id number] 11:35:00 Test Item Value Reference Range Interpretation Comments GLUCOSE BEDSIDE TESTING (test code 161 MG/DL 60-99 H = GLUBED) GLYCOSYLATED HEMOGLOBIN [id number] 10:30:00 Test Item Value Reference Range Interpretation [...] H (test code = MBG) COMPREHENSIVE METABOLIC [id number] 09:27:00 Test Item Value Reference Range Interpretation [...] Total Protein:======= Eltrombopag Max Observed A vg. BiasConflorian on Concentration Concentration== ==== 2.5 mg/dl 6.0 [...] 38-126 N PHOSPHATASE (test code = ALKP) [id number] 09:27:00 Test Item Value Reference Range Interpretation Comments TROPONIN-I (test code = TROPI) 0.089 NG/ML 0.012-0.033 H T4 [id number] 09:07:00 Test Item Value Reference Range Interpretation Comments T4 FREE (test code = T4F) 1.5 NG/DL 0.78-2.19 N Specimen comments: please run from tsh previously drawnCOMPREHENSIVE METABOLIC [id number] 08:51:00 Test Item Value Reference Range Interpretation [...] 38-126 N PHOSPHATASE (test code = ALKP) [id number] 08:51:00 Test Item Value Reference Range Interpretation Comments TROPONIN-I (test code = TROPI) NG/ML 0.0-0.045 CBC W/AUTO [id number] 08:36:00 Test Item Value Reference Range Interpretation [...] 0.00 K/mm3 0.0-0.1 N NRBC#) GLUCOSE BEDSIDE [id number] 07:36:00 Test Item Value Reference Range Interpretation Comments GLUCOSE BEDSIDE TESTING (test code 178 MG/DL 60-99 H = GLUBED) URINALYSIS [id number] 04:39:00 Test Item Value Reference Range Interpretation [...] UACULT) Criteria SOURCE OF URINE: CLEAN CATCHURINALYSIS [id number] 04:35:00 Test Item Value Reference Range Interpretation [...] SOURCE OF URINE: CLEAN CATCHTSH REFLEX TO [id number] 04:06:00 Test Item Value Reference Range Interpretation Comments TSH REFLEX TO FT4 0.391 MIU/L 0.65-4.68 L Please be aware that (test code = bias results fo r TSH TSHREFLEX) may occur forpa tient who are taking Biotin supplements. [id number] 04:06:00 Test Item Value Reference Range Interpretation Comments MAGNESIUM (test code = MAG) 1.8 MG/DL 1.6-2.3 N LIPOPROTEIN LDL [id number] 04:06:00 Test Item Value Reference Range Interpretation Comments LIPOPROTEIN LDL DIRECT 92 mg/dL 100-129 L ===== (test code = LDLDIR) ======= ==Refe rence Interval: mg/dL mmol/L--------- ------ ------ ------ --Optimal <100 <2.6Near/abov e optimal 100-129 2.6-3.3Borderli ne High 130-159 3.4-4.1High 16 0-189 4.1-4.9Ve ry High >=190 >=4.9========= This LDL result is a direct measurement.=== ====== [id number] 04:06:00 Test Item Value Reference Range Interpretation Comments TROPONIN-I (test code = TROPI) 0.075 NG/ML 0.012-0.033 H [id number] 03:48:00 Test Item Value Reference Range Interpretation Comments MAGNESIUM (test code = MAG) 1.8 MG/DL 1.6-2.3 N LIPOPROTEIN LDL [id number] 03:48:00 Test Item Value Reference Range Interpretation Comments LIPOPROTEIN LDL DIRECT (test code = mg/dL 100-129 LDLDIR) [id number] 03:48:00 Test Item Value Reference Range Interpretation Comments TROPONIN-I (test code = TROPI) 0.075 NG/ML 0.012-0.033 H [id number] 03:38:00 Test Item Value Reference Range Interpretation Comments MAGNESIUM (test code = MAG) 1.8 MG/DL 1.6-2.3 N [id number] 03:38:00 Test Item Value Reference Range Interpretation Comments TROPONIN-I (test code = TROPI) NG/ML 0.0-0.045 GLUCOSE BEDSIDE [id number] 23:56:00 Test Item Value Reference Range Interpretation Comments GLUCOSE BEDSIDE TESTING (test code 211 MG/DL 60-99 H = GLUBED) HEMOGLOBIN [id number] 09:40:00 Test Item Value Reference Range Interpretation Comments HEMOGLOBIN A1C (BEAKER) (test code = 6.1 % 4.3-6.1 368) RAD, CHEST, 1 VIEW, NON [id number] 09:36:00Reason for exam:->sobShould this be performed at the bedside?->YesFINAL REPORT Chest one view compared to January 22 Discussion: There is cardiac prominence and interstitial congestion. There is linear opacity in both lower lungs. No effusionor pneumothorax. Signed: Denice Tran Verified Date/Time: 01/23/2018 09:36:57 Reading Location: [facility] Radiology Reading Room POCT-GLUCOSE [id number] 08:04:00 Test Item Value Reference Range Interpretation Comments POC-GLUCOSE METER 176 mg/dL 70-110 H TESTED AT [facility] 6720 (BEAKER) (test code = [place] 1538) [address] [id number] 06:49:00 Test Item Value Reference Range Interpretation Comments MAGNESIUM (BEAKER) 2.1 mg/dL 1.6-2.6 Specimen slightly (test code = 627) hemolyzed BASIC METABOLIC [id number] 06:49:00 Test Item Value Reference Range Interpretation [...] PATIEN TS. CBC W/PLT COUNT & AUTO [id number] 06:30:00 Test Item Value Reference Range Interpretation [...] PERCENT (BEAKER) (test code = 2801) POCT-GLUCOSE [id number] 22:19:00 Test Item Value Reference Range Interpretation Comments POC-GLUCOSE METER 235 mg/dL 70-110 H TESTED AT [facility] 6720 ([facility]) (test code = [place] 1538) [address] TROPONIN [id number] 17:45:00 Test Item Value Reference Range Interpretation Comments [facility] (test code = 0.53 ng/mL 0.00-0.03 397) [...] 0-100 H (BEAKER) (test code = 700) [id number] 17:35:00 Test Item Value Reference Range Interpretation Comments MAGNESIUM (BEAKER) (test code = 1.9 mg/dL 1.6-2.6 627) COMPREHENSIVE METABOLIC [id number] 17:35:00 Test Item Value Reference Range Interpretation [...] NOT APPLICABLE FOR DIALYSIS PATIEN TS. LIPID [id number] 17:35:00 Test Item Value Reference Range Interpretation [...] 160-189 Very High >=190LACTIC ACID, VENOUS, WHOLE [id number] 17:29:00 Test Item Value Reference Range Interpretation Comments LACTATE BLOOD VENOUS 1.0 mmol/L 0.5-2.2 Specime n slightly (2) (BEAKER) (test hemolyzed code = 2872) Effective 09/07/2015: Units/Reference Range ChangeNew: 0.5-2.2 mmol/L Previous: 5-20 mg/[id number] 17:29:00 Test Item Value Reference Range Interpretation Comments PARTIAL THROMBOPLASTIN TIME 46.7 seconds 22.5-36.0 H (BEAKER) (test code = 760) PROTHROMBIN TIME/[id number] 17:28:00 Test Item Value Reference Range Interpretation [...] = 2801) RAD, CHEST, 1 VIEW, NON [id number] 17:16:00Reason for exam:->sp acute respiratory failure/bronchospasmShould this [...] Banegas Verified Date/Time: 01/22/2018 17:16:12 Reading Location: [facility] Reading Room POCT-GLUCOSE [id number] 17:12:00 Test Item Value Reference Range Interpretation Comments POC-GLUCOSE METER 118 mg/dL 70-110 H TESTED AT [place] [address] (BEAKER) (test code = [place] [address]608) [address] BLOOD GAS, [id number] 16:35:00 Test Item Value Reference Range Interpretation [...] (test code = 1819) 32.0 % POCT-GLUCOSE [id number] 14:15:00 Test Item Value Reference Range Interpretation Comments POC-GLUCOSE METER 69 mg/dL 70-110 L Will Repea t Test/TESTED (BEAKER) (test code = AT [facility] [address] [facility] [address] [address] 0 POCT-GLUCOSE [id number] 08:43:00 Test Item Value Reference Range Interpretation Comments POC-GLUCOSE METER 277 mg/dL 70-110 H TESTED AT [facility] 6720 (BEAKER) (test code = [place] 1538) [address] [id number] 06:20:00 Test Item Value Reference Range Interpretation Comments PHOSPHORUS (BEAKER) (test code = 3.3 mg/dL 2.3-4.7 604) [id number] 06:20:00 Test Item Value Reference Range Interpretation Comments MAGNESIUM (BEAKER) (test code = 1.8 mg/dL 1.6-2.6 627) BASIC METABOLIC [id number] 06:20:00 Test Item Value Reference Range Interpretation [...] PATIEN TS. CBC W/PLT COUNT & AUTO [id number] 06:09:00 Test Item Value Reference Range Interpretation [...] PERCENT (BEAKER) (test code = 2801) POCT-GLUCOSE [id number] 22:48:00 Test Item Value Reference Range Interpretation Comments POC-GLUCOSE METER 196 mg/dL 70-110 H TESTED AT [place] [address] ([facility]) (test [facility] = [facility] 1538) [address] POCT-GLUCOSE [id number] 17:21:00 Test Item Value Reference Range Interpretation Comments POC-GLUCOSE METER 122 mg/dL 70-110 H TESTED AT [facility] 6720 ([facility]) (test code = [facility] Isa [facility] 6731) [address] [id number] 13:13:00 Test Item Value Reference Range Interpretation Comments PHOSPHORUS (BEAKER) (test code = 2.4 mg/dL 2.3-4.7 604) BASIC METABOLIC [id number] 13:13:00 Test Item Value Reference Range Interpretation [...] S NOT APPLICABLE FOR DIALYSIS PATIEN TS. [id number] 13:08:00 Test Item Value Reference Range Interpretation Comments MAGNESIUM (BEAKER) (test code = 1.7 mg/dL 1.6-2.6 627) CBC W/PLT COUNT & AUTO [id number] 12:50:00 Test Item Value Reference Range Interpretation [...] PERCENT (BEAKER) (test code = 2801) POCT-GLUCOSE [id number] 12:42:00 Test Item Value Reference Range Interpretation Comments POC-GLUCOSE METER 174 mg/dL 70-110 H TESTED AT [facility] 6720 [facility] (test code = [facility] [place] [facility] 1538) [address] POCT-GLUCOSE [id number] 08:01:00 Test Item Value Reference Range Interpretation Comments POC-GLUCOSE METER 175 mg/dL 70-110 H TESTED AT [facility] 6720 [facility] (test code = [facility] 1538) [address] RAD, CHEST, 1 VIEW, NON [id number] 03:44:00Reason for exam:->ptxShould this be performed at the bedside?->YesFINAL REPORT RAD, CHEST, 1 VIEW, NON DEPT INDICATION: ptx COMPARISON: Prior day's exam FINDINGS: Portable frontal view of the chest. IMPRESSION: Support Lines: None. Lungs andpleura: Stable small left apical pneumothorax. Mild increase in congestive changes in the interstitial markings bilaterally. No effusion.Heart and mediastinum: Stable contours. Stable surgical changes.Additional findings: None. Signed: JR Jerry, Tima Barron Verified Date/Time: 11/18/2017 03:44:04 Reading Location: [address] Reading Room POCT- GLUCOSE [id number] 21:05:00 Test Item Value Reference Range Interpretation Comments POC-GLUCOSE METER 145 mg/dL 70-110 H TESTED AT [place] [address] ([facility]) (test code = [place] [facility] 1538) [address] POCT-GLUCOSE [id number] 17:19:00 Test Item Value Reference Range Interpretation Comments POC-GLUCOSE METER 129 mg/dL 70-110 H TESTED AT [place] [address] ([facility]) (test code = [place] [facility] 1538) [address] POCT-GLUCOSE [id number] 12:12:00 Test Item Value Reference Range Interpretation Comments POC-GLUCOSE METER 194 mg/dL 70-110 H TESTED AT [place] [address] ([facility]) (test code = [employer] [facility] 1538) [address] POCT-GLUCOSE [id number] 07:30:00 Test Item Value Reference Range Interpretation Comments POC-GLUCOSE METER 171 mg/dL 70-110 H TESTED AT [place] [address] ([facility]) (test code = [facility] [employer] [facility] 1538) [address] RAD, CHEST, 1 VIEW, NON [id number] 07:27:00Reason for exam:->ptxShould this be performed at [...] MDReport Verified Date/Time: 11/17/2017 07:27:16 Reading Location: [address] Consult Reading Room [id number] 07:19:00 Test Item Value Reference Range Interpretation Comments MAGNESIUM (BEAKER) (test code = 1.9 mg/dL 1.6-2.6 627) BASIC METABOLIC [id number] 07:19:00 Test Item Value Reference Range Interpretation [...] NOT APPLICABLE FOR DIALYSIS PATIEN TS. POCT-GLUCOSE [id number] 21:30:00 Test Item Value Reference Range Interpretation Comments POC-GLUCOSE METER 214 mg/dL 70-110 H TESTED AT [facility] 6762 (BEAKER) (test code = [place] 8303) [address] URINALYSIS W/ REFLEX URINE [id number] 16:32:00 Test Item Value Reference Range Interpretation [...] = 2795) RAD, CHEST, 1 VIEW, NON [id number] 15:34:00Reason for exam:->ptxShould this be performed at [...] MDReport Verified Date/Time: 11/16/2017 15:34:49 Reading Location: [address] Consult Reading Room POCT-GLUCOSE [id number] 12:10:00 Test Item Value Reference Range Interpretation Comments POC-GLUCOSE METER 203 mg/dL 70-110 H TESTED AT [place] [address] ([facility]) (test code = [place] 1538) [address] POCT-GLUCOSE [id number] 08:21:00 Test Item Value Reference Range Interpretation Comments POC-GLUCOSE METER 181 mg/dL 70-110 H TESTED AT [place] [address] ([facility]) (test code = [place] 1538) [address] RAD, CHEST, 1 VIEW, NON [id number] 08:03:00while patient is intubated or has chest [...] Tran Verified Date/Time: 11/16/2017 08:03:32 Reading Location: [address] Reading Room POCT-GLUCOSE [id number] 00:11:00 Test Item Value Reference Range Interpretation Comments POC-GLUCOSE METER 159 mg/dL 70-110 H TESTED AT [place] [address] ([facility]) (test code = [place] 1538) [address] POCT-GLUCOSE [id number] 20:33:00 Test Item Value Reference Range Interpretation Comments POC-GLUCOSE METER 163 mg/dL 70-110 H TESTED AT [place] [address] ([facility]) (test code = [place]REE[place] [facility] 1538) [address] POCT-GLUCOSE [id number] 17:33:00 Test Item Value Reference Range Interpretation Comments POC-GLUCOSE METER 183 mg/dL 70-110 H TESTED AT [place] [address] ([facility]) (test code = [place] 1538) [address] URINE IMMUNOFIXATION, [id number] 17:17:00 Test Item Value Reference Range Interpretation Comments PROTEIN, URINE 30 mg/dL 0-14 H (BEAKER) (test code = 1569) ALBUMIN URINE ELP 61.4 % (BEAKER) (test code = 1018) GAMMA GLOBULIN URINE 38.6 % (BEAKER) (test code = 1015) URINE GERARD ID-[id number] No monoclonal proteins (BEAKER) (test code = or monoclonal free 2602) light chains detected. [id number] Raine Martin MD [facility] (test code = (electronic signature) 2603) RAD, CHEST, 1 VIEW, NON [id number] 13:19:00while patient is intubated or has chest tubes.Reason for exam:->PostopShould this be performed atthe bedside?->YesFINAL REPORT Chest one view compared to November 14 Discussion: Left chest tube, right IJ pulmonary catheter are noted. There is pulmonary congestion and right midlung linear atelectasis grossly similar. No gross effusion. Tiny left apical pneumothorax unchanged. Signed: Denice Traneport Verified Date/Time: 11/15/2017 13:19:28 Reading Location: [facility] Radiology ReadingRoom URINE PROTEIN ELECTROPHORESIS, RANDOM 2017-11-15 12:47:00 Test Item Value Reference Range Interpretation Comments PROTEIN, URINE 12 mg/dL 0-14 (BEAKER) (test code = 1569) ALBUMIN URINE ELP 61.4 % (BEAKER) (test code = 1018) GAMMA GLOBULIN URINE 38.6 % (BEAKER) (test code = 1015) UPEP, ID-[id number] (BEAKER) No monoclonal bands (test code = 2604) detected. [id number] Raine Martin MD (BEAKER) (test code = (electronic signature) 260) PROTEIN ELECTROPHORESIS, [id number] 12:29:00 Test Item Value Reference Range Interpretation [...] of alpha-2 (BEAKER) (test code = fraction, September 2614) represent a haptoglobin polymorphism or submission of a hemolyzed sample. No monoclonal bands detected. [id number] Raine Martin MD (BEAKER) (test code = (electronic signature) 4670) PROTEIN TOTAL SERUM, 7.0 gm/dL 6.0-8.3 SPEP (BEAKER) (test code = 0317) BLOOD GAS, [id number] 08:21:00 Test Item Value Reference Range Interpretation [...] code = 1819) 20.0 % BASIC METABOLIC [id number] 08:03:00 Test Item Value Reference Range Interpretation [...] DIALYSIS PATIEN TS. LACTIC ACID, ARTERIAL, WHOLE [id number] 07:57:00 Test Item Value Reference Range Interpretation Comments LACTATE BLOOD ARTERIAL (2) 0.8 mmol/L 0.5-2.2 (BEAKER) (test code = 2874) Effective 09/07/2015: Units/Reference Range ChangeNew: 0.5-2.2 mmol/L Previous: 5-20 mg/[id number] 02:55:00 Test Item Value Reference Range Interpretation Comments PHOSPHORUS (BEAKER) (test code = 2.8 mg/dL 2.3-4.7 604) [id number] 02:55:00 Test Item Value Reference Range Interpretation Comments MAGNESIUM (BEAKER) (test code = 2.1 mg/dL 1.6-2.6 627) BASIC METABOLIC [id number] 02:55:00 Test Item Value Reference Range Interpretation [...] NOT APPLICABLE FOR DIALYSIS PATIEN TS. PROTHROMBIN [id number] 02:53:00 Test Item Value Reference Range Interpretation Comments PROTIME (BEAKER) (test code = 14.9 seconds 11.7-14.7 H 759) INR (BEAKER) (test code = 370) 1.2 <=5.9 RECOMMENDED COUMADIN/WARFARIN INR THERAPY RANGESSTANDARD DOSE: 2.0 - 3.0 Includes: PROPHYLAXIS forvenous thrombosis, systemic embolization; TREATMENT for venous thrombosis and/or pulmonary embolus.HIGH RISK: Target INR is 2.5-3.5 for patients with mechanical heart valves.[id number] 02:53:00 Test Item Value Reference Range Interpretation Comments PARTIAL THROMBOPLASTIN TIME 34.0 seconds 22.5-36.0 (BEAKER) (test code = 760) CBC W/PLT COUNT & AUTO [id number] 02:43:00 Test Item Value Reference Range Interpretation [...] PERCENT (BEAKER) (test code = 2801) PLATELET [id number] 02:35:00 Test Item Value Reference Range Interpretation Comments PLATELET COUNT (BEAKER) (test 167 K/CU MM 150-450 code = 756) GLUCOSE-STAT [id number] 02:32:00 Test Item Value Reference Range Interpretation Comments GLUCOSE RANDOM (BEAKER) (test code 112 mg/dL 70-110 H = 652) HGB/HCT (H&H) - STAT [id number] 02:32:00 Test Item Value Reference Range Interpretation Comments HEMOGLOBIN (BEAKER) (test code = 10.5 g/dL 13.0-16.8 L 410) HEMATOCRIT (BEAKER) (test code = 31.0 % 40.0-50.0 L 411) CALCIUM, [id number] 02:31:00 Test Item Value Reference Range Interpretation Comments CALCIUM IONIZED (BEAKER) (test 1.18 mmol/L 1.12-1.27 code = 698) PH, BLOOD (BEAKER) (test code = 7.38 1810) SODIUM NA-STAT [id number] 02:31:00 Test Item Value Reference Range Interpretation Comments SODIUM (BEAKER) (test code = 381) 137 meq/L 135-148 POTASSIUM-STAT [id number] 02:31:00 Test Item Value Reference Range Interpretation Comments POTASSIUM (BEAKER) (test code = 3.7 meq/L 3.6-5.5 379) POCT-GLUCOSE [id number] 00:40:00 Test Item Value Reference Range Interpretation Comments POC-GLUCOSE METER 129 mg/dL 70-110 H TESTED AT [place] [address] (BEAKER) (test code = [facility] 1538) [address] POCT-GLUCOSE [id number] 00:40:00 Test Item Value Reference Range Interpretation Comments POC-GLUCOSE METER 143 mg/dL 70-110 H TESTED AT [place] [address] ([facility]) (test code = [facility] 1538) [address] POCT-GLUCOSE [id number] 21:41:00 Test Item Value Reference Range Interpretation Comments POC-GLUCOSE METER 179 mg/dL 70-110 H TEST[facility] AT [place] [address] ([facility] (test code = [facility] 1538) [address] BLOOD GAS, [id number] 19:39:00 Test Item Value Reference Range Interpretation [...] (test code = 1819) 40.0 % GLUCOSE-STAT [id number] 19:39:00 Test Item Value Reference Range Interpretation Comments GLUCOSE RANDOM (BEAKER) (test code 160 mg/dL 70-110 H = 652) HGB/HCT (H&H) - STAT [id number] 19:39:00 Test Item Value Reference Range Interpretation Comments HEMOGLOBIN (BEAKER) (test code = 11.0 g/dL 13.0-16.8 L 410) HEMATOCRIT (BEAKER) (test code = 32.0 % 40.0-50.0 L 411) SODIUM NA-STAT [id number] 19:37:00 Test Item Value Reference Range Interpretation Comments SODIUM (BEAKER) (test code = 381) 137 meq/L 135-148 POTASSIUM-STAT [id number] 19:37:00 Test Item Value Reference Range Interpretation Comments POTASSIUM (BEAKER) (test code = 4.0 meq/L 3.6-5.5 379) BLOOD GAS, [id number] 18:02:00 Test Item Value Reference Range Interpretation [...] arterial line present.RAD, CHEST, 1 VIEW, NON [id number] 17:20:00 Reason for exam:->PostopShould this be performed at the bedside?->YesFINAL REPORT EXAM: Frontal chest radiograph HISTORY PROVIDED: Postop COMPARISON: 11/13/2017 IMPRESSION:The tip of an endotracheal tube terminates 3.8 cm above the alexia. A right IJ approach Winona-Jun catheter has been placed with its tip [...] MDReport Verified Date/Time: 11/14/2017 17:20:20 Reading Location: [facility] Reading Room C METABOLIC [id number] 16:02:00 Test Item Value Reference Range Interpretation [...] S NOT APPLICABLE FOR DIALYSIS PATIEN TS. [id number] 16:02:00 Test Item Value Reference Range Interpretation Comments PHOSPHORUS (BEAKER) (test code = 2.3 mg/dL 2.3-4.7 604) [id number] 16:02:00 Test Item Value Reference Range Interpretation Comments MAGNESIUM (BEAKER) (test code = 2.6 mg/dL 1.6-2.6 627) LACTIC ACID, ARTERIAL, WHOLE [id number] 15:58:00 Test Item Value Reference Range Interpretation Comments LACTATE BLOOD 0.9 mmol/L 0.5-2.2 Specimen sligh tly ARTERIAL (2) (BEAKER) hemoly zed (test code = 2874) Effective 09/07/2015: Units/Reference Range ChangeNew: 0.5-2.2 mmol/L Previous: 5-20 mg/dLCBC W/PLT COUNT & AUTO [id number] 15:47:00 Test Item Value Reference Range Interpretation [...] (BEAKER) (test code = 2801) OXYGEN SATURATION, [id number] 15:37:00 Test Item Value Reference Range Interpretation Comments O2 SATURATION (MEASURED) (BEAKER) 55.5 % (test code = 1455) CALCIUM, [id number] 15:37:00 Test Item Value Reference Range Interpretation Comments CALCIUM IONIZED (BEAKER) (test 1.12 mmol/L 1.12-1.27 code = 698) PH, BLOOD (BEAKER) (test code = 7.41 1810) SODIUM NA-STAT [id number] 15:37:00 Test Item Value Reference Range Interpretation Comments SODIUM (BEAKER) (test code = 381) 138 meq/L 135-148 POTASSIUM-STAT [id number] 15:37:00 Test Item Value Reference Range Interpretation Comments POTASSIUM (BEAKER) (test code = 3.6 meq/L 3.6-5.5 379) BLOOD GAS, [id number] 15:37:00 Test Item Value Reference Range Interpretation [...] (test code = 1819) 60.0 % GLUCOSE-STAT [id number] 15:37:00 Test Item Value Reference Range Interpretation Comments GLUCOSE RANDOM (BEAKER) (test code 162 mg/dL 70-110 H = 652) HEMOGLOBIN-STAT [id number] 15:37:00 Test Item Value Reference Range Interpretation Comments HEMOGLOBIN (BEAKER) (test code = 11.2 g/dL 13.0-16.8 L 410) HGB/HCT (H&H) - STAT [id number] 15:37:00 Test Item Value Reference Range Interpretation Comments HEMOGLOBIN (BEAKER) (test code = 11.2 GM/DL 13.0-16.8 L 410) HEMATOCRIT (BEAKER) (test code = 33.0 % 40.0-50.0 L 411) [id number] 14:04:00 Test Item Value Reference Range Interpretation Comments ACTIVATED CLOTTING TIME 114 sec TEST ED AT [place] [address] ([facility]) (test code = [place] [address]) [address] [id number] 14:04:00 Test Item Value Reference Range Interpretation Comments ACTIVATED CLOTTING TIME 472 sec TEST ED AT [place] [address] ([facility]) (test code = [place] [address]) [address] [id number] 14:04:00 Test Item Value Reference Range Interpretation Comments ACTIVATED CLOTTING TIME 505 sec TEST ED AT [place] [address] ([facility]) (test code = [place] [address]) [address] [id number] 14:04:00 Test Item Value Reference Range Interpretation Comments ACTIVATED CLOTTING TIME 543 sec TEST ED AT [place] [address] ([facility]) (test code = ARTUR[place] Isa [place] [address]) [address] CALCIUM, [id number] 13:58:00 Test Item Value Reference Range Interpretation Comments CALCIUM IONIZED (BEAKER) (test 1.11 mmol/L 1.12-1.27 L code = 698) PH, BLOOD (BEAKER) (test code = 7.36 1810) BLOOD GAS, [id number] 13:56:00 Test Item Value Reference Range Interpretation [...] (test code = 1819) 100.0 % GLUCOSE-STAT [id number] 13:56:00 Test Item Value Reference Range Interpretation Comments GLUCOSE RANDOM (BEAKER) (test code 167 mg/dL 70-110 H = 652) HGB/HCT (H&H) - STAT [id number] 13:56:00 Test Item Value Reference Range Interpretation Comments HEMOGLOBIN (BEAKER) (test code = 10.8 g/dL 13.0-16.8 L 410) HEMATOCRIT (BEAKER) (test code = 32.0 % 40.0-50.0 L 411) SODIUM NA-STAT [id number] 13:55:00 Test Item Value Reference Range Interpretation Comments SODIUM (BEAKER) (test code = 381) 136 meq/L 135-148 POTASSIUM-STAT [id number] 13:55:00 Test Item Value Reference Range Interpretation Comments POTASSIUM (BEAKER) (test code = 3.8 meq/L 3.6-5.5 379) BLOOD GAS, [id number] 12:54:00 Test Item Value Reference Range Interpretation [...] code = 1819) 65.0 % SODIUM NA-STAT [id number] 12:54:00 Test Item Value Reference Range Interpretation Comments SODIUM (BEAKER) (test code = 381) 134 meq/L 135-148 L GLUCOSE-STAT [id number] 12:54:00 Test Item Value Reference Range Interpretation Comments GLUCOSE RANDOM (BEAKER) (test code 158 mg/dL 70-110 H = 652) HGB/HCT (H&H) - STAT [id number] 12:54:00 Test Item Value Reference Range Interpretation Comments HEMOGLOBIN (BEAKER) (test code = 8.8 g/dL 13.0-16.8 L 410) HEMATOCRIT (BEAKER) (test code = 26.0 % 40.0-50.0 L 411) POTASSIUM-STAT [id number] 12:53:00 Test Item Value Reference Range Interpretation Comments POTASSIUM (BEAKER) (test code = 4.1 meq/L 3.6-5.5 379) BLOOD GAS, [id number] 12:20:00 Test Item Value Reference Range Interpretation [...] code = 1819) 60.0 % SODIUM NA-STAT [id number] 12:20:00 Test Item Value Reference Range Interpretation Comments SODIUM (BEAKER) (test code = 381) 134 meq/L 135-148 L GLUCOSE-STAT [id number] 12:20:00 Test Item Value Reference Range Interpretation Comments GLUCOSE RANDOM (BEAKER) (test code 187 mg/dL 70-110 H = 652) HGB/HCT (H&H) - STAT [id number] 12:20:00 Test Item Value Reference Range Interpretation Comments HEMOGLOBIN (BEAKER) (test code = 10.0 g/dL 13.0-16.8 L 410) HEMATOCRIT (BEAKER) (test code = 29.0 % 40.0-50.0 L 411) BLOOD GAS, [id number] 12:20:00 Test Item Value Reference Range Interpretation [...] (test code = 1819) 60.0 % POTASSIUM-STAT [id number] 12:18:00 Test Item Value Reference Range Interpretation Comments POTASSIUM (BEAKER) (test code = 3.5 meq/L 3.6-5.5 L 379) U/S, RENAL WITH [id number] 08:35:00Reason for exam:->INCLUDE DOPPLERS AND PVR- for [...] [place] Verified Date/Time: 11/14/2017 08:35:40 Reading Location: [address] Ultrasound Reading Room POCT-GLUCOSE [id number] 07:34:00 Test Item Value Reference Range Interpretation Comments POC-GLUCOSE METER 190 mg/dL 70-110 H TESTED AT [facility] 6720 (BEAKER) (test code = [place] 1538) [id number] 05:19:00 Test Item Value Reference Range Interpretation Comments MAGNESIUM (BEAKER) (test code = 2.0 mg/dL 1.6-2.6 627) BASIC METABOLIC [id number] 05:19:00 Test Item Value Reference Range Interpretation [...] PATIEN TS. CBC W/PLT COUNT & AUTO [id number] 05:00:00 Test Item Value Reference Range Interpretation [...] 0-1 PERCENT (BEAKER) (test code = 2801) [id number] 01:56:00 Test Item Value Reference Range Interpretation Comments PARTIAL THROMBOPLASTIN TIME 69.0 seconds 22.5-36.0 H (BEAKER) (test code = 760) POCT-GLUCOSE [id number] 22:07:00 Test Item Value Reference Range Interpretation Comments POC-GLUCOSE METER 185 mg/dL 70-110 H TESTED AT [facility] 6720 (BEAKER) (test code = [place] 1538) [id number] 18:43:00 Test Item Value Reference Range Interpretation Comments PARTIAL THROMBOPLASTIN TIME 45.2 seconds 22.5-36.0 H (BEAKER) (test code = 760) [id number] 16:12:00 Test Item Value Reference Range Interpretation Comments THYROID STIMULATING HORMONE 0.53 uIU/mL 0.35-4.94 (BEAKER) (test code = 772) RAD, CHEST, 1 VIEW, NON [id number] 15:33:00Reason for exam:->preopShould this be performed at the bedside?->YesFINAL REPORT EXAM: Frontal chest radiograph HISTORY PROVIDED: Preop COMPARISON: 11/12/2017 IMPRESSION:No focal consolidation, pneumothorax, or significant pleural fluid. The cardiomediastinal silhouette is within normal limits. No acute osseous abnormality. Degenerative changes of the spine are present. Signed: Clayton Banegas Verified Date/Time: 11/13/2017 15:33:28[facility] Electronically signed by: CLAYTON BANEGAS on 11/03 03:33 [id number] 15:06:00 Test Item Value Reference Range Interpretation Comments PARTIAL THROMBOPLASTIN TIME 51.6 seconds 22.5-36.0 H (BEAKER) (test code = 760) PROTHROMBIN [id number] 15:05:00 Test Item Value Reference Range Interpretation [...] INTERPRETATION (BEAKER) arachidonic acid (test code = 894421) suggests aspirin-like effect. [id number] Deven Mei MD (BEAKER) (test code = (electronic 2621) signature) PLATELET COUNT AGG 243 K/CU MM 150-450 (BEAKER) (test code = 2656) Platelet aggregation results may be falsely low with platelet counts<100,000/CU MM.CREATININE, RANDOM [id number] 06:28:00 Test Item Value Reference Range Interpretation Comments CREATININE URINE (BEAKER) (test 114.6 mg/dL code = 375) Reference Range: No NormalsPROTEIN, RANDOM [id number] 06:28:00 Test Item Value Reference Range Interpretation Comments PROTEIN, URINE (BEAKER) (test code = 30 mg/dL 0-14 H 1569) PH, [id number] 05:47:00 Test Item Value Reference Range Interpretation Comments PH VENOUS (BEAKER) (test code = 701) 7.40 7.32-7.42 VITAMIN D, [id number]-[id number] 04:52:00 Test Item Value Reference Range Interpretation Comments VITAMIN D 25-OH (BEAKER) (test 36.5 ng/mL 6.6-49.9 code = 2764) Effective 02/13/2017: Reference Range ChangeNew: 6.6-49.9 ng/mL Previous: 13.0-47.8 ng/mLRecommended Vitamin D Target Range: 30.0-40.0 ng/mLPTH, INTACT 2017-11-13 04:25:00 Test Item Value Reference Range Interpretation Comments PARATHYROID HORMONE INTACT 91.7 pg/mL 8.5-72.5 H (BEAKER) (test code = 577) [id number] 04:21:00 Test Item Value Reference Range Interpretation Comments PARTIAL THROMBOPLASTIN TIME 53.6 seconds 22.5-36.0 H (BEAKER) (test code = 760) URIC [id number] 04:20:00 Test Item Value Reference Range Interpretation Comments URIC ACID (BEAKER) (test code = 9.0 mg/dL 2.6-7.2 H 773) [id number] 04:20:00 Test Item Value Reference Range Interpretation Comments MAGNESIUM (BEAKER) (test code = 2.0 mg/dL 1.6-2.6 627) [id number] 04:20:00 Test Item Value Reference Range Interpretation Comments PHOSPHORUS (BEAKER) (test code = 3.1 mg/dL 2.3-4.7 604) BASIC METABOLIC [id number] 04:20:00 Test Item Value Reference Range Interpretation [...] PATIEN TS. CBC W/PLT COUNT & AUTO [id number] 04:06:00 Test Item Value Reference Range Interpretation [...] 0-1 PERCENT (BEAKER) (test code = 2801) [id number] 22:34:00 Test Item Value Reference Range Interpretation Comments PARTIAL THROMBOPLASTIN TIME 49.5 seconds 22.5-36.0 H ([facility]) (test code = 760) POCT-GLUCOSE [id number] 21:55:00 Test Item Value Reference Range Interpretation Comments POC-GLUCOSE METER 179 mg/dL 70-110 H TESTED AT [facility] 6720 ([facility]) (test code = [place] [facility] 1538) [address] RAD, CHEST, 1 VIEW, NON [id number] 17:03:00Reason for exam:->sobShould this be performed at the bedside?->YesFINAL REPORT CHEST AP PORTABLE History provided: Shortness of breath Comparison studies: None Heart size normal. Lungs grossly clear and vascularity normal. IMPRESSION: Grossly clear chest. Signed: Eboni [place] Verified Date/Time: 11/12/2017 17:03:31 Reading Location: [address] Radiology Reading Room [id number] 15:41:00 Test Item Value Reference Range Interpretation Comments PARTIAL THROMBOPLASTIN TIME 41.3 seconds 22.5-36.0 H ([facility]) (test code = 760) POCT-GLUCOSE [id number] 11:50:00 Test Item Value Reference Range Interpretation Comments POC-GLUCOSE METER 218 mg/dL 70-110 H TESTED AT [facility] 67 ([facility]) (test code = [place] [facility] 1538) [id number] PLATELET AGGREGATION: FUNCTION [id number] 10:14:00 Test Item Value Reference Range Interpretation Comments WEAK ADP 82 % 60-91 RESULT([facility]) (test code = 2135) PLATELET FUNCTION 60-100% indicates This is a corrected SCREEN INTERP normal platelet result. Pre vious ([facility]) (test function result was 50 -59% code = 2173) indicates mild platelet dysfunction on 11/11/2017 at 192 1 CDT [facility]-PATHOLOGIST- Deven Mei MD 9266 ([facility]) (electronic (test code = signature) 2625) PLATELET COUNT 283 K/CU MM 150-450 AGG ([facility]) (test code = 2656) TROPONIN [id number] 08:02:00 Test Item Value Reference Range Interpretation [...] failure, acidosis, acute neurological disease, and persistent tachyarrhythmia.[id number] 07:55:00 Test Item Value Reference Range Interpretation Comments PARTIAL THROMBOPLASTIN TIME 42.7 seconds 22.5-36.0 H (BEAKER) (test code = 760) [id number] 07:55:00 Test Item Value Reference Range Interpretation Comments MAGNESIUM (BEAKER) (test code = 2.3 mg/dL 1.6-2.6 627) BASIC METABOLIC [id number] 07:55:00 Test Item Value Reference Range Interpretation [...] PATIEN TS. CBC W/PLT COUNT & AUTO [id number] 07:49:00 Test Item Value Reference Range Interpretation [...] PERCENT (BEAKER) (test code = 2801) POCT-GLUCOSE [id number] 07:33:00 Test Item Value Reference Range Interpretation Comments POC-GLUCOSE METER 159 mg/dL 70-110 H TESTED AT [facility] 6720 [facility] (test code = [place] 1538) [id number] 00:57:00 Test Item Value Reference Range Interpretation Comments PARTIAL THROMBOPLASTIN TIME 47.6 seconds 22.5-36.0 H (BEAKER) (test code = 760) [id number] 00:40:00 Test Item Value Reference Range Interpretation Comments MAGNESIUM (BEAKER) 2.3 mg/dL 1.6-2.6 Specimen slightly (test code = 627) hemolyzed BASIC METABOLIC [id number] 00:40:00 Test Item Value Reference Range Interpretation [...] NOT APPLICABLE FOR DIALYSIS PATIEN TS. POCT-GLUCOSE [id number] 21:57:00 Test Item Value Reference Range Interpretation Comments POC-GLUCOSE METER 162 mg/dL 70-110 H TESTED AT [facility] 6720 [facility] (test code = [place] 1538) [address] HEMOGLOBIN [id number] 19:53:00 Test Item Value Reference Range Interpretation Comments HEMOGLOBIN A1C (BEAKER) (test code = 7.0 % 4.3-6.1 H 368) LIPID [id number] 18:10:00 Test Item Value Reference Range Interpretation [...] 130-159 High 160-189 Very High >=190BASIC METABOLIC [id number] 18:10:00 Test Item Value Reference Range Interpretation [...] APPLICABLE FOR DIALYSIS PATIEN TS. HEPATIC FUNCTION [id number] 18:10:00 Test Item Value Reference Range Interpretation [...] (test code = 24 U/L 6-55 347) [id number] 17:56:00 Test Item Value Reference Range Interpretation [...] PERCENT (BEAKER) (test code = 2801) POCT-GLUCOSE [id number] 16:49:00 Test Item Value Reference Range Interpretation Comments POC-GLUCOSE METER 128 mg/dL 70-110 H TESTED AT [facility] 6720 [facility] (test code = [place] 1538) [id number]
--- NOTE | 2021-06-06 21:30 | RAD REPORT ---
EXAM DESCRIPTION: RAD - Chest Single View - 06/06/2021 9:00 pm CLINICAL HISTORY: CHEST PAIN Chest pain. COMPARISON: Chest Single View dated 04/21/2021; Chest Single View dated 04/19/2021; Chest Single Vie w dated 03/26/2021; Chest Single View dated 01/13/2021 FINDINGS: Portable technique limits examination quality. Mild bilateral pulmonary opacities compatible with pulmonary edema or pneumonia. The heart is mildly prominent. Sternotomy wires.
[2021-06-06 21:40] LABS: Absolute Lymphocytes (CBC) 0.5 K/uL (0.7-4.9); Hematocrit 38.8 % (39.6-49.0); Lymphocytes % 5.2 % (15.3-44.8); MPV 8.1 fL (7.6-11.3); RBC Red Blood Cell Count 4.61 M/uL (4.33-5.43)
[2021-06-06] MEDS ORDERED: METOPROLOL TARTRATE 5 MG/5 ML INJ IV ONE ×2 (21:56→22:43)
[2021-06-06 22:04] LABS: ALT/SGPT 25 U/L (12-78); AST/SGOT 16 U/L (15-37); Albumin 3.8 g/dL (3.4-5.0); Alkaline Phosphatase 111 U/L (45-117); BUN Blood Urea Nitrogen 25 mg/dL (7-18); Bicarbonate 29 mmol/L (21-32); Bilirubin Direct < 0.1 mg/dL (0-0.2); Bilirubin Total 0.5 mg/dL (0.2-1.0); Glucose Level 169 mg/dL (74-106); NT PRO-BNP 3742 pg/mL (<125); Potassium 3.6 mmol/L (3.5-5.1); Protein, Total 8.1 g/dL (6.4-8.2); Sodium Level 139 mmol/L (136-145)
[2021-06-06] MEDS ORDERED: FUROSEMIDE 40 MG/4 ML VIAL ONE ×2 (22:54→23:30)
--- NOTE | 2021-06-06 23:36 | ER ---
Nurse's Notes [facility] Name: Ludwin Hsu Age: 70 yrs Sex: Male : 1950 Arrival Date: 06/06/2021 Time: 20:01 Bed 26 Private MD: Diagnosis: S/P Cardioversion. Ventricular tachycardia. ;S/P Cardioversion. Ventricular tachycardia. Congestive heart failure Presentation: 06/06 20:00 Coronavirus screen: Vaccine status: Patient reports receiving the 2nd dose of the covid jan vaccine. Client denies travel out of the [place] in the last 14 days. Ebola Screen: EMS states: Per EMS"...the called...he was confused...he was in wide complex v tach and we cardioverted him with 70 joules...and 150 mg of amiodarone..." Patient negative for fever greater than or equal to 101.5 degrees Fahrenheit, and additional compatible Ebola Virus Disease symptoms Patient denies exposure to infectious person. Patient denies travel to an Ebola-affected area in the 21 days before illness onset. Initial Sepsis Screen: Does the patient meet any 2 criteria? No. Patient's initial sepsis screen is negative. Risk Assessment: Do you want to hurt yourself or someone else? Patient reports no desire to harm self or others. Onset of symptoms was June 06, 2021. 20:00 Method Of Arrival: EMS jan 20:00 Acuity: NGUYEN 2 jan 20:00 Chief complaint: EMS states: "AMS and Wide Complex V tach". jan 21:23 Initial Sepsis Screen: Does the patient have a suspected source of infection? No. jan Patient's initial sepsis screen is negative. Triage Assessment: 20:00 General: Appears obese, unkempt, disheveled and foul smelling. Pain: Denies pain. jan Historical: - Allergies: 21:06 NKA; jan - Home Meds: 21:06 albuterol sulfate 90 mcg/actuation Inhl HFAA 1 puff every 6 hours [Active]; amiodarone jan 200 mg Oral tab [Active]; aspirin 81 mg Oral chew 1 tab once daily [Active]; atorvastatin 40 mg Oral tab 1 tab once daily [Active]; bupropion HCl 100 mg Oral tab daily [Active]; carvedilol 25 mg Oral tab 1 tab 2 times per day [Active]; clopidogrel 75 mg Oral tab 1 tab once daily [Active]; furosemide 80 mg Oral tab 1 tab once daily [Active]; gabapentin 400 mg Oral cap 1 cap 3 times per day [Active]; glipizide 5 mg Oral tr24 2 tabs once daily [Active]; losartan 50 mg Oral tab 1 tab once daily [Active]; metformin 1,000 mg Oral tab 1 tab 2 times per day [Active]; Prednisone Oral [Active]; Xarelto 20 mg Oral tab 1 tab once daily [Active]; - PMHx: 21:06 arteriosclerosis; CHF; chronic back pain; COPD; Diabetes - NIDDM; Hypertension; kidney jan disease; malignant neoplasm of epidimyis; Myocardial infarction; Pancreatitis; PTSD; tinnitus; - Immunization history:: Client reports receiving the 2nd dose of the Covid vaccine. - Social history:: Smoking status: Patient/guardian denies using. Screenin:00 Abuse screen: Denies threats or abuse. Denies injuries from another. Nutritional jan screening: No deficits noted. Tuberculosis screening: No symptoms or risk factors identified. Fall Risk Assessment: 20:00 General: Appears in no apparent distress. obese, unkempt, Behavior is cooperative, Pt jan is confused about date, but can recite address, name, medical conditions, etc.. Pain: Denies pain. Neuro: Level of Consciousness is awake, alert, obeys commands, confused, LJ=689. Cardiovascular: Rhythm is sinus tachycardia Wide complex. 21:17 General: The pt's , Dominique Hsu, his , was called at [phone]. The pt jan misunderstood the EMS, apparently, because she thought the pt was being transferred to [place], not [facility]. Per her report, he "goes to the OR". His attending is Dr. Ramirez, here. The pt has been here as a pt, previously. . 21:21 General: Disregard previous statement about [facility], the pt's thought he was being jan transferred to [facility] in [place]. . 23:21 Reassessment: Given that the pt now is coughing and sounds wet. The MD was at bedside jan and assessed the pt. Lasix was given. The charge nurse was informed of the pt's continued wide complex tachycardia and bp. 23:55 General: The pt was taken to CT for his scan. . jan 06/07 00:31 General: The pt returned from CT \\T\\ 0005 and respiratory was here to put him on the bi jan pap. The provider was at bedside and helped pull the pt up in bed. The pt remains on the monitor, but he continues to try and get oob. He became much more cooperative, when the bipap was placed. The F/C has put out very little urine, so the lasix was increased and we are waiting for the results. . 01:09 Reassessment: The pt is much less restless and has had minimal output on his F/C, but jan we will continue to monitor. Provider is aware of pt's condition and is monitoring closely, as well. 01:57 Reassessment: The pt's vs remain consistent and improving. His uop is increasing jan minimally, but increasing. He remains much less restless. 02:53 General: The pt's bp is improving. The uop remains minimal.. jan 03:16 General: The pt was turned and placed on two heavy chux and in a diaper. He continues jan to be anxious, but less so. . 05:00 General: The tech is performing a renal US at this time, at bedside. . jan Vital Signs: 06/06 20:00 BP 152 / 78; Pulse 101; Resp 18; Temp 98.5; Pulse Ox 98% on R/A; jan 20:00 BP 152 / 78; Pulse 101; Resp 18; Pulse Ox 97% on R/A; Weight 113.4 kg; Height 6 ft. 0 jan in. (182.88 cm); Pain 0/10; 21:20 BP 156 / 94; Pulse 113; Resp 18; Pulse Ox 99% on NC; jan 21:42 BP 139 / 120; Pulse 126; Resp 20; Pulse Ox 99% on R/A; jan 21:51 BP 202 / 114; Pulse 122; Resp 18; Pulse Ox 99% on R/A; jan 22:00 BP 161 / 83; Pulse 101; Resp 18; Pulse Ox 99% on R/A; jan 22:06 BP 169 / 80; Pulse 103; Resp 18; Pulse Ox 99% on R/A; jan 22:48 BP 152 / 82; Pulse 110; Resp 26; Pulse Ox 97% on R/A; jan 02 01:08 BP 159 / 115; Pulse 118; Resp 24; Pulse Ox 100% on BiPAP; jan 01:54 BP 159 / 106; Pulse 113; Resp 31; Pulse Ox 100% on 60% BiPAP; jan 02:53 BP 113 / 67; Pulse 118; Resp 30; Pulse Ox 100% on 60% BiPAP; jan 03:38 BP 97 / 50; Pulse 113; Resp 19; Pulse Ox 100% on 60% BiPAP; jan 03:54 BP 97 / 50; Pulse 112; Resp 20; Temp 100.2(TE); Pulse Ox 100% on 60% BiPAP; jan 04:18 BP 98 / 54; Pulse 101; Resp 24; Temp 100.2; Pulse Ox 100% on 60% BiPAP; Pain 0/10; jan 04:37 BP 124 / 92; Pulse 115; Resp 14; Pulse Ox 100% on R/A; jan 05:27 BP 91 / 60; Pulse 119; Resp 17; Pulse Ox 100% on 60% BiPAP; jan 05:38 BP 96 / 68; Pulse 120; Resp 22; Pulse Ox 100% on 60% BiPAP; jan 06:12 BP 99 / 61; Pulse 117; Resp 16; Pulse Ox 99% on 60% BiPAP; jan 06/06 20:00 Body Mass Index 33.91 (113.40 kg, 182.88 cm) jan ED Course: 06/06 20:00 Patient has correct armband on for positive identification. Placed in gown. Bed in low jan position. hall monitor on. Pulse ox on. NIBP on. Notified ED physician of vital signs. Notified Charge Nurse of. 20:00 EKG completed in triage. Results shown to MD. jan 20:00 No provider procedures requiring assistance completed. jan 20:01 Patient arrived in ED. ja2 20:02 Richard Fontana MD is Attending Physician. pkl 20:14 Lianna Darden, STEPHEN is Primary Nurse. jan 21:00 XRAY Chest (1 view) In Process Unspecified. EDMS 21:06 Triage completed. jan 21:27 Basic Metabolic Panel Sent. jan 21:27 CBC with Diff Sent. jan 21:27 LFT's Sent. jan 21:27 Magnesium Sent. jan 21:28 NT PRO-BNP Sent. jan 21:28 PT-INR Sent. jan 21:28 Troponin HS Sent. jan 21:57 Procalcitonin Sent. jan 22:38 Procalcitonin Sent. jan 22:38 Blood Culture Adult (2) Sent. jan 22:38 Lactate Sent. jan 22:55 COVID-19/FLU A+B (Document "Date of Onset" if Symptomatic) Sent. jan 22:55 COVID-19/FLU A+B Sent. jan 23:34 Prince Serna MD is Hospitalizing Provider. pkl 23:54 Magnesium Sent. jan 23:54 PT-INR Sent. jan 23:55 Smith cath inserted, using sterile technique, 16 Fr., by ks, balloon inflated, to jan gravity drainage, urine specimen collected. 06/07 00:12 CT Head Brain wo Cont In Process Unspecified. EDMS 00:12 CT Chest Wo Con In Process Unspecified. EDMS 00:34 CRP Sent. jan 00:34 Procalcitonin Sent. jan 00:34 Lactate Sent. jan 06/08 07:34 Primary Nurse role handed off by Lianna Darden, RN bp 07:34 Uri Tony, RN is Primary Nurse. bp 02 08:31 Inserted saline lock: 22 gauge in right antecubital area, using aseptic technique. dh3 Administered Medications: 06/06 22:00 Drug: Lopressor (metoprolol) 5 mg Route: IVP; Site: left antecubital; jan 22:49 Drug: Lopressor (metoprolol) 5 mg Route: IVP; Site: right hand; jan 22:55 Drug: Lasix (furosemide) 40 mg Route: IVP; Site: right hand; jan 23:54 Follow up: Response: No adverse reaction jan 23:45 Drug: Lasix (furosemide) 40 mg Route: IVP; Site: right hand; jan 23:54 Follow up: Response: No adverse reaction jan 06/07 00:15 Drug: Lasix (furosemide) 60 mg Route: IVP; Site: left antecubital; jan 00:30 Follow up: Response: No adverse reaction jan 00:30 Drug: Nitro-Bid (nitroglycerin) Ointment 2 % 1 inches Route: Transdermal; Site: jan anterior chest wall; 00:30 Follow up: Response: No adverse reaction jan 00:45 Drug: SOLU-Medrol (methylPrednisoLONE) 125 mg Route: IVP; Site: left antecubital; jan 01:11 Follow up: Response: No adverse reaction jan Output: 03:19 Urine: 600ml (Smith); Total: 600ml. jan 05:49 Urine: 400ml (Smith); Total: 1000ml. jan Outcome: 06/06 23:36 Decision to Hospitalize by Provider. pkl 06/07 01:09 critical jan 06/10 15:26 Patient left the ED. ss Signatures: Dispatcher [employer] EDMS Richard Fontana MD MD pkSindy Rodriguez RN RN Barb Malcolm 3 Uri Tony RN RN bp Alexander, Jessica ja2 O'Farrell, Brenda, RN RN jan
--- NOTE | 2021-06-06 23:37 | EDPHYS ---
Physician Documentation [facility] Name: Ludwin Hsu Age: 70 yrs Sex: Male : 1950 Arrival Date: 06/06/2021 Time: 20:01 Bed 26 Private MD: ED Physician Richard Fontana HPI: 06/06 21:08 This 70 yrs old Male presents to ER via EMS with unknown complaint. pkl 21:17 This 70 yrs old Male presents to ER via EMS with unknown complaint. pkl 21:08 The patient presents with confusion. Onset: The symptoms/episode began/occurred today. pkl said patient is confused. Ambulance was called. EMT at scene noted patient was having wide QRS complexes and rapid heart rate. EMT cardioverted him wt th 70 joules and gave 150 mg of amiodarone.. Historical: - Allergies: 21:06 NKA; jan - Home Meds: 21:06 albuterol sulfate 90 mcg/actuation Inhl HFAA 1 puff every 6 hours [Active]; amiodarone jan 200 mg Oral tab [Active]; aspirin 81 mg Oral chew 1 tab once daily [Active]; atorvastatin 40 mg Oral tab 1 tab once daily [Active]; bupropion HCl 100 mg Oral tab daily [Active]; carvedilol 25 mg Oral tab 1 tab 2 times per day [Active]; clopidogrel 75 mg Oral tab 1 tab once daily [Active]; furosemide 80 mg Oral tab 1 tab once daily [Active]; gabapentin 400 mg Oral cap 1 cap 3 times per day [Active]; glipizide 5 mg Oral tr24 2 tabs once daily [Active]; losartan 50 mg Oral tab 1 tab once daily [Active]; metformin 1,000 mg Oral tab 1 tab 2 times per day [Active]; Prednisone Oral [Active]; Xarelto 20 mg Oral tab 1 tab once daily [Active]; - PMHx: 21:06 arteriosclerosis; CHF; chronic back pain; COPD; Diabetes - NIDDM; Hypertension; kidney jan disease; malignant neoplasm of epidimyis; Myocardial infarction; Pancreatitis; PTSD; tinnitus; - Immunization history:: Client reports receiving the 2nd dose of the Covid vaccine. - Social history:: Smoking status: Patient/guardian denies using. ROS: 21:08 Eyes: Negative for injury, pain, redness, and discharge, ENT: Negative for injury, pkl pain, and discharge, Neck: Negative for injury, pain, and swelling. 21:08 Cardiovascular: Positive for palpitations. 21:08 Respiratory: Negative for cough, shortness of breath. 21:08 Abdomen/GI: Negative for abdominal pain, nausea, vomiting, and diarrhea. 21:08 Back: Negative for acute changes. 21:08 : Negative for urinary symptoms. 21:08 MS/extremity: Negative for acute changes. 21:08 Skin: Negative for rash. 21:08 Neuro: Positive for altered mental status. Exam: 21:08 Head/Face: Normocephalic, atraumatic. Eyes: Pupils equal round and reactive to light, pkl extra-ocular motions intact. Lids and lashes normal. Conjunctiva and sclera are non-icteric and not injected. Cornea within normal limits. Periorbital areas with no swelling, redness, or edema. ENT: Nares patent. No nasal discharge, no septal abnormalities noted. Tympanic membranes are normal and external auditory canals are clear. Oropharynx with no redness, swelling, or masses, exudates, or evidence of obstruction, uvula midline. Mucous membranes moist. Neck: Trachea midline, no thyromegaly or masses palpated, and no cervical lymphadenopathy. Supple, full range of motion without nuchal rigidity, or vertebral point tenderness. No Meningismus. Chest/axilla: Normal chest wall appearance and motion. Nontender with no deformity. No lesions are appreciated. Cardiovascular: Regular rate and rhythm with a normal S1 and S2. No gallops, murmurs, or rubs. Normal PMI, no JVD. No pulse deficits. Respiratory: Lungs have equal breath sounds bilaterally, clear to auscultation and percussion. No rales, rhonchi or wheezes noted. No increased work of breathing, no retractions or nasal flaring. Abdomen/GI: Soft, non-tender, with normal bowel sounds. No distension or tympany. No guarding or rebound. No evidence of tenderness throughout. Back: No spinal tenderness. No costovertebral tenderness. Full range of motion. Skin: Warm, dry with normal turgor. Normal color with no rashes, no lesions, and no evidence of cellulitis. MS/ Extremity: Pulses equal, no cyanosis. Neurovascular intact. Full, normal range of motion. Neuro: Awake and alert, GCS 15, oriented to person, place, time, and situation. Cranial nerves II-XII grossly intact. Motor strength 5/5 in all extremities. Sensory grossly intact. Cerebellar exam normal. Normal gait. Vital Signs: 20:00 BP 152 / 78; Pulse 101; Resp 18; Temp 98.5; Pulse Ox 98% on R/A; jan 20:00 BP 152 / 78; Pulse 101; Resp 18; Pulse Ox 97% on R/A; Weight 113.4 kg; Height 6 ft. 0 jan in. (182.88 cm); Pain 0/10; 21:20 BP 156 / 94; Pulse 113; Resp 18; Pulse Ox 99% on NC; jan 21:42 BP 139 / 120; Pulse 126; Resp 20; Pulse Ox 99% on R/A; jan 21:51 BP 202 / 114; Pulse 122; Resp 18; Pulse Ox 99% on R/A; jan 22:00 BP 161 / 83; Pulse 101; Resp 18; Pulse Ox 99% on R/A; jan 22:06 BP 169 / 80; Pulse 103; Resp 18; Pulse Ox 99% on R/A; jan 22:48 BP 152 / 82; Pulse 110; Resp 26; Pulse Ox 97% on R/A; jan /02 01:08 BP 159 / 115; Pulse 118; Resp 24; Pulse Ox 100% on BiPAP; jan 01:54 BP 159 / 106; Pulse 113; Resp 31; Pulse Ox 100% on 60% BiPAP; jan 02:53 BP 113 / 67; Pulse 118; Resp 30; Pulse Ox 100% on 60% BiPAP; jan 03:38 BP 97 / 50; Pulse 113; Resp 19; Pulse Ox 100% on 60% BiPAP; jan 03:54 BP 97 / 50; Pulse 112; Resp 20; Temp 100.2(TE); Pulse Ox 100% on 60% BiPAP; jan 04:18 BP 98 / 54; Pulse 101; Resp 24; Temp 100.2; Pulse Ox 100% on 60% BiPAP; Pain 0/10; jan 04:37 BP 124 / 92; Pulse 115; Resp 14; Pulse Ox 100% on R/A; jan 05:27 BP 91 / 60; Pulse 119; Resp 17; Pulse Ox 100% on 60% BiPAP; jan 05:38 BP 96 / 68; Pulse 120; Resp 22; Pulse Ox 100% on 60% BiPAP; jan 06:12 BP 99 / 61; Pulse 117; Resp 16; Pulse Ox 99% on 60% BiPAP; jan 06/06 20:00 Body Mass Index 33.91 (113.40 kg, 182.88 cm) jan MDM: 06/06 20:02 Patient medically screened. pkl 23:32 Data reviewed: vital signs, nurses notes, lab test result(s), EKG, radiologic studies, pkl CT scan, plain films. ED course: Talked to Frank Ballard ( [employer] ) Admit to . 06/06 20:08 Order name: Basic Metabolic Panel; Complete Time: 02:19 pkl 06/06 20:08 Order name: CBC with Diff; Complete Time: 22:53 pkl 06/06 20:08 Order name: LFT's; Complete Time: 02:19 pkl 06/06 20:08 Order name: Magnesium; Complete Time: 02:19 pkl 06/06 20:08 Order name: NT PRO-BNP; Complete Time: 02:19 pkl 06/06 20:08 Order name: PT-INR; Complete Time: 02:19 pkl 06/06 20:08 Order name: Troponin HS; Complete Time: 02:19 pkl 06/06 20:47 Order name: Glucose, Ancillary Testing; Complete Time: 20:59 EDMS 06/06 21:39 Order name: Lactate; Complete Time: 22:53 pkl 06/06 21:39 Order name: Procalcitonin; Complete Time: 23:20 pkl 06/06 21:39 Order name: Blood Culture Adult (2); Complete Time: 23:28 pkl 06/06 22:53 Order name: COVID-19/FLU A+B (Document "Date of Onset" if Symptomatic) pkl 06/06 22:54 Order name: COVID-19/FLU A+B; Complete Time: 00:31 EDMS 06/06 23:29 Order name: ABG pkl 06/06 23:52 Order name: Urine Dipstick-Ancillary; Complete Time: 23:57 EDMS 06/07 00:31 Order name: CRP la1 06/07 00:31 Order name: Procalcitonin la1 06/07 00:31 Order name: Lactate la1 06/07 01:08 Order name: C-Reactive Protein; Complete Time: 02:19 EDMS 06/07 01:14 Order name: Lactate Sepsis 2 HR Follow-up; Complete Time: 02:19 EDMS 06/07 01:46 Order name: Procalcitonin; Complete Time: 02:19 EDMS 06/07 02:07 Order name: CBC with Automated Diff; Complete Time: 02:19 EDMS 06/07 02:41 Order name: Comprehensive Metabolic Panel; Complete Time: 04:42 EDMS 06/07 02:41 Order name: NT PRO-BNP; Complete Time: 04:42 EDMS 06/07 02:41 Order name: Lipid Profile; Complete Time: 04:42 EDMS 06/07 02:41 Order name: T4 Free; Complete Time: 04:42 EDMS 06/07 02:41 Order name: Thyroid Stimulating Hormone; Complete Time: 04:42 EDMS 06/07 06:10 Order name: ABG Arterial Blood Gas; Complete Time: 23:28 EDMS 06/07 09:39 Order name: Glucose, Ancillary Testing; Complete Time: 23:28 EDMS 06/07 09:42 Order name: Lactate; Complete Time: 23:28 EDMS 06/07 11:48 Order name: Glucose, Ancillary Testing; Complete Time: 23:28 EDMS 06/07 15:55 Order name: Basic Metabolic Panel; Complete Time: 23:28 EDMS 06/07 15:56 Order name: C-Reactive Protein; Complete Time: 23:28 EDMS 06/07 16:15 Order name: Troponin High Sensitivity; Complete Time: 23:28 EDMS 06/07 16:53 Order name: Glucose, Ancillary Testing; Complete Time: 23:28 EDMS 06/07 21:50 Order name: Glucose, Ancillary Testing; Complete Time: 23:28 EDMS 06/07 22:38 Order name: Magnesium; Complete Time: 23:28 EDMS 06/07 23:26 Order name: Urinalysis EDMS 06/07 23:53 Order name: Urine Microscopic Only EDMS 06/08 04:26 Order name: CBC with Automated Diff EDMS 06/08 05:14 Order name: Comprehensive Metabolic Panel EDMS 06/08 05:14 Order name: NT PRO-BNP EDMS 06/08 05:14 Order name: C-Reactive Protein EDMS 06/08 08:26 Order name: Glucose, Ancillary Testing EDMS / 09:05 Order name: Troponin High Sensitivity EDMS / 12:12 Order name: Glucose, Ancillary Testing EDMS / 13:54 Order name: RPR EDMS 06/08 14:17 Order name: Ammonia EDMS 06/08 15:05 Order name: Urine Drug Screen EDMS 06/08 16:48 Order name: Glucose, Ancillary Testing EDMS / 21:37 Order name: Glucose, Ancillary Testing EDMS 06/09 04:40 Order name: CBC with Automated Diff EDMS 06/09 05:01 Order name: Comprehensive Metabolic Panel EDMS 06/09 05:01 Order name: NT PRO-BNP EDMS 06/09 05:01 Order name: C-Reactive Protein EDMS 06/09 17:22 Order name: Glucose, Ancillary Testing EDMS 06/09 22:09 Order name: Magnesium EDMS 06/10 01:44 Order name: Glucose, Ancillary Testing EDMS 06/10 04:15 Order name: CBC with Automated Diff EDMS 06/10 04:57 Order name: Comprehensive Metabolic Panel EDMS 06/10 04:57 Order name: C-Reactive Protein EDMS 06/10 08:15 Order name: NT PRO-BNP EDMS 06/06 20:08 Order name: XRAY Chest (1 view); Complete Time: 21:38 pkl 06/06 20:08 Order name: EKG; Complete Time: 20:26 pkl 06/06 20:08 Order name: Cardiac monitoring; Complete Time: 21:27 pkl 06/06 20:08 Order name: EKG - Nurse/Tech; Complete Time: 21:27 pkl 06/06 20:08 Order name: IV Saline Lock; Complete Time: 21:27 pkl 06/06 20:08 Order name: Labs collected and sent; Complete Time: 21:27 pkl 06/06 20:08 Order name: O2 Per Protocol; Complete Time: 21:27 pkl 06/06 20:08 Order name: O2 Sat Monitoring; Complete Time: 21:27 pkl 06/06 20:16 Order name: Urine Dipstick-Ancillary (obtain specimen); Complete Time: 23:54 pkl 06/06 22:14 Order name: CT Head Brain wo Cont; Complete Time: 23:28 pkl 06/06 22:57 Order name: CT Chest Wo Con; Complete Time: 23:28 pkl 06/07 00:13 Order name: BIPAP la1 06/07 09:38 Order name: US; Complete Time: 23:05 EDMS 06/08 07:41 Order name: RAD EDMS 06/08 07:56 Order name: MRI - Brain Wo Cont [email or web address] 06/08 09:32 Order name: MRI EDMS 06/08 15:00 Order name: US EDMS 06/09 07:39 Order name: RAD EDMS 06/10 09:47 Order name: Glucose, Ancillary Testing EDMS Administered Medications: 22:00 Drug: Lopressor (metoprolol) 5 mg Route: IVP; Site: left antecubital; jan 22:49 Drug: Lopressor (metoprolol) 5 mg Route: IVP; Site: right hand; jan 22:55 Drug: Lasix (furosemide) 40 mg Route: IVP; Site: right hand; jan 23:54 Follow up: Response: No adverse reaction jan 23:45 Drug: Lasix (furosemide) 40 mg Route: IVP; Site: right hand; jan 23:54 Follow up: Response: No adverse reaction jan 06/07 00:15 Drug: Lasix (furosemide) 60 mg Route: IVP; Site: left antecubital; jan 00:30 Follow up: Response: No adverse reaction jan 00:30 Drug: Nitro-Bid (nitroglycerin) Ointment 2 % 1 inches Route: Transdermal; Site: jan anterior chest wall; 00:30 Follow up: Response: No adverse reaction jan 00:45 Drug: SOLU-Medrol (methylPrednisoLONE) 125 mg Route: IVP; Site: left antecubital; jan 01:11 Follow up: Response: No adverse reaction jan Disposition Summary: 06/06/21 23:36 Hospitalization Ordered Hospitalization Status: Inpatient Admission pkl Provider: Prince pravin Serna Condition: Stable pkl Problem: new pkl Symptoms: are unchanged pkl Bed/Room Type: Standard pkl Location: [facility] ER HOLD(06/07/21 00:55) mw Room Assignment: ERHOLD-(06/07/21 00:55) mw Diagnosis - S/P Cardioversion. Ventricular tachycardia. pkl - S/P Cardioversion. Ventricular tachycardia. Congestive heart failure pkl Forms: - Medication Reconciliation Form pkl - SBAR form pkl Signatures: Dispatcher [employer] EDMS Johanna Ace RN RN mw Lam, Pin, MD MD pkl Attema, Lee, FNP-C [id number] Lianna Darden RN STEPHEN jan Corrections: (The following items were deleted from the chart) 06/06 20:41 20:24 Chest Single View ordered. EDHI EDHI 06/07 00:55 06/06 23:36 Telemetry/MedSurg (Inpatient) pkl gómez 06/07 00:55 06/06 23:36 pkl
[2021-06-06 23:53] LABS: Urine Blood Negative (Negative); Urine Glucose Negative (Negative); Urine Protein 2+ (Negative); Urine Specific Gravity 1.025 (1.005-1.030)
[2021-06-07] MEDS ORDERED: FUROSEMIDE 40 MG/4 ML VIAL ONE ×3 (00:15→16:16)
[2021-06-07] MEDS ORDERED: NITROGLYCERIN 1 GM PKT TD ONE (00:26)
[2021-06-07] MEDS ORDERED: FUROSEMIDE 20 MG/ 2ML VIAL ONE (00:26)
[2021-06-07 00:30] LABS: SARS-COV-2 RT PCR POSITIVE (NEGATIVE)
[2021-06-07 00:34] LABS: Magnesium 1.7 mg/dL (1.8-2.4)
[2021-06-07] MEDS ORDERED: METHYLPREDNISOLONE 125 MG INJ ONE (00:38)
--- NOTE | 2021-06-07 01:20 | P.HP ---
Certification for Inpatient Patient admitted to: Inpatient With expected LOS: >2 Midnights Patient will require the following post-hospital care: None Practitioner: I am a practitioner with admitting privileges, knowledge of patient current condition, hospital course, and medical plan of care. Services: Services provided to patient in accordance with Admission requirements found in Title 42 Section 412.3 of the Code of Federal Regulations Patient History Date of Service: 06/07/21 Reason for admission: CHF exacerbation History of Present Illness: 70-year-old male with history of chronic diastolic congestive heart failure, COPD, diabetes mellitus type 2, hypertension, CKD, CAD, atrial fibrillation on chronic anticoagulation therapy presents emergency department for altered mental status. called ambulance as patient was having mild confusion ever since he woke up today upon arrival EMS noted the patient's heart rate was around 140 and appeared to be wide-complex, patient was cardioverted and given dose of amiodarone bolus. Upon arrival to the emergency department patient is confused slightly tachycardic with rate around 110-120 but blood pressure was stable. Patient was evaluated in the emergency department labs were significant for hemoglobin 13 hematocrit 38.8 creatinine 1.7 GFR 40 glucose 169 lactic acid 2.6 C-reactive protein 9.23 BNP 3742. Patient takes Lasix 80 mg once daily at home sounded very wet and moderate respiratory distress in the emergency department was placed on BiPAP given Lasix a total of 120 mg in incremental doses, Nitropaste was applied to patient's chest. Patient clinically improved after this will need to be admitted to ICU for further evaluation and management of altered mental status, CHF exacerbation. Patient also tested positive for Covid states that he has not tested positive in the past but is currently very confused, also stated he was unvaccinated. We will need to confirm this with family. Allergies No Known Allergies Allergy (Verified 01/13/21 22:24) Home Medications: Gabapentin [Neurontin*] 3 cap PO TID 12/02/16 Aspirin 81 mg PO DAILY 11/10/17 glipiZIDE [Glucotrol] 10 mg PO DAILY 11/10/17 Metformin ER [Glucophage ER*] 1,000 mg PO BID 02/17/18 Aripiprazole [Abilify] 30 mg PO DAILY 08/28/20 Atorvastatin Calcium [Lipitor] 40 mg PO BEDTIME 08/28/20 Losartan Potassium [Cozaar] 100 mg PO DAILY 08/28/20 Rivaroxaban [Xarelto*] 20 mg PO DAILY 6PM 08/28/20 Albuterol Neb [Proventil 0.083% Neb Soln] 2.5 mg NEB [id number] PRN #120 amp 08/29/20 Budesonide/Formoterol Fumarate [Symbicort 160-4.5 Mcg Inhaler] 1 puff IH DAILY PRN 09/17/20 Spironolactone [Aldactone] 25 mg PO DAILY #30 tablet 09/23/20 Amiodarone HCl 100 mg PO DAILY 30 Days #30 tablet 01/14/21 Furosemide [Lasix*] 40 mg PO BID #60 tab 01/14/21 Albuterol Neb [Proventil 0.083% Neb Soln] 2.5 mg NEB Q6HP PRN #120 amp 04/21/21 Amlodipine [Norvasc*] 10 mg PO DAILY #30 tab 04/21/21 Ipratropium Neb [Atrovent*] 0.5 mg NEB [id number] PRN #120 amp 04/21/21 Nebulizer [Aeroneb Go Nebulizer] 1 each MC QID #1 each 04/21/21 predniSONE [Prednisone*] 40 mg PO DAILY #10 tab 04/21/21 - Past Medical/Surgical History Diabetic: Yes -: Hypertension -: Diabetes mellitus type 2 -: Posttraumatic stress disorder -: Anxiety -: Hepatitis-C -: Hyperlipidemia -: CAD, stent placement x2, atrial fibrillation, chronic diastolic CHF -: Obstructive sleep apnea -: COPD, tobacco abuse -: 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 - Family History Father -: Other (see notes) Notes: CHF Mother -: Cancer Notes: breast cancer Sister -: Cancer Notes: colon cancer Brother -: Cancer Notes: throat cancer - Social History Smoking Status: Unknown if ever smoked Alcohol use: No CD- Drugs: No Caffeine use: Yes Place of Residence: Home Review of Systems is unable to be obtained (Confused, oriented x1) Respiratory: Shortness of Breath Physical Examination - Physical Exam General: Alert, In no apparent distress, Oriented x1 HEENT: Atraumatic, PERRLA, Mucous membr. moist/pink, EOMI, Sclerae nonicteric Neck: Supple, 2+ carotid pulse no bruit, No LAD, Without JVD or thyroid abnormality Respiratory: Crackles/rales, Other (Mild to moderate respiratory distress currently on BiPAP) Cardiovascular: Edema (Mild edema lower extremities), Irregular heart rate/rhythm (A. fib rate around 110-120) Capillary refill: <2 Seconds Gastrointestinal: Normal bowel sounds, No tenderness Musculoskeletal: No tenderness Integumentary: No rashes Neurological: Normal speech, Normal strength at 5/5 x4 extr, Normal tone, Normal affect - Studies Laboratory Data (last 24 hrs) 06/06/21 21:20: WBC 8.80, Hgb 13.0 L, Hct 38.8 L, Plt Count 216 06/06/21 21:20: Sodium 139, Potassium 3.6, BUN 25 H, Creatinine 1.70 H, Glucose 169 H, Magnesium 1.7 L, Total Bilirubin 0.5, AST 16, ALT 25, Alkaline Phosp hatase 111 Assessment and Plan - Plan Assessment: Dyspnea, volume overload secondary to acute on chronic diastolic congestive heart failure Atrial fibrillation on chronic anticoagulation therapy with rapid ventricular response Altered mental status Diabetes type 2 Hypertension CAD COVID-19 positive Plan: Dyspnea, volume overload secondary to acute on chronic diastolic congestive heart failure: Cardiology consulted, patient currently on BiPAP for respiratory support will continue as necessary. Nitropatch currently applied to patient's chest continue Lasix IV 80 mg twice daily. Will trend troponins as well, echocardiogram ordered. Appreciate further input from cardiology. Atrial fibrillation on chronic anticoagulation therapy with rapid ventricular response: Xarelto continued unsure of other medications at this time monitor on telemetry provide IV push medications as needed for rate control. Obtain and continue medications as appropriate. Altered mental status: Unknown etiology noticed patient was more confused when he awoke yesterday morning nonfocal but clearly confused. Is Covid positive, neurology consulted patient may benefit from MRI. CT head brain negative for acute findings. Appreciate further input from neurology Diabetes type 2: ACH is Accu-Chek, sliding scale insulin. Hypertension: Obtain and continue home medications CAD: Obtain and continue home medications COVID-19 positive: Patient denies previously being Covid positive, CRP very low at 9 currently believe this is more related to CHF. Appreciate further input from pulmonology who has been consulted. Did get dose of steroids as well. Trend CRP level daily. DVT PPX: Continue Xarelto Code status: Full code Discharge Plan: Home Plan to discharge in: Greater than 2 days - Advance Directives Does patient have a Living Will: No Does patient have a Durable POA for Healthcare: No - Code Status/Comfort Care Code Status Assessed: Yes (Full code) Critical Care: No Time Spent Managing Pts Care (In Minutes): 55
[2021-06-07] MEDS ORDERED: ONDANSETRON 4 MG/2 ML VIAL IV PRN (01:32)
[2021-06-07 01:51] LABS: Protime INR 1.15
[2021-06-07 02:06] LABS: Absolute Lymphocytes (CBC) 0.4 K/uL (0.7-4.9); Hematocrit 39.5 % (39.6-49.0); Lymphocytes % 3.5 % (15.3-44.8); MPV 8.9 fL (7.6-11.3); RBC Red Blood Cell Count 4.68 M/uL (4.33-5.43)
[2021-06-07 02:22] LABS: Albumin 3.7 g/dL (3.4-5.0); Bilirubin Total 0.5 mg/dL (0.2-1.0); Potassium 3.5 mmol/L (3.5-5.1); Protein, Total 7.9 g/dL (6.4-8.2); Thyroid Stimulating Hormone 1.17 uIU/mL (0.360-3.740)
[2021-06-07] MEDS ORDERED: METOPROLOL TARTRATE 5 MG/5 ML INJ IV ONE (02:52)
[2021-06-07 06:08] LABS: Arterial Blood Carboxyhemoglob 1.3 % (0-1.5); Blood Gas Oxyhemoglobin 87.6 % (94-97); Blood O2 Saturation 89.6 % (92-98.5)
[2021-06-07] MEDS: INSULIN -REGULAR HUMAN 50 UNIT/0.5 ML ML SQ SCH ×4 (07:30→21:00)
--- NOTE | 2021-06-07 07:45 | RAD REPORT ---
EXAM DESCRIPTION: US - Renal Ultrasound-Complete - 06/07/2021 5:25 am CLINICAL HISTORY: elisabeth/ckd COMPARISON: ABDOMINAL EXAM COMPLETE dated 07/01/2013 FINDINGS: Both kidneys are normal in size, shape and echotexture. The right kidney measures 10.5 cm. Right lower pole renal cyst versus adjacent cysts measuring 2.9 cm . No hydronephrosis. The left kidney measures 10.5 cm. No hydronephrosis, focal mass or perinephric fluid. IMPRESSION: No hydronephrosis . Right renal cysts.
[2021-06-07] MEDS ORDERED: METHYLPREDNISOLONE 40 MG INJ ONE ×2 (08:56→21:47)
[2021-06-07] MEDS ORDERED: FUROSEMIDE 40 MG/4 ML VIAL IV SCH (09:00)
[2021-06-07] MEDS: METHYLPREDNISOLONE 40 MG INJ IV SCH ×2 (09:00→21:00)
--- NOTE | 2021-06-07 12:33 | RAD REPORT ---
EXAM DESCRIPTION: CT - Head Brain Wo Cont - 06/07/2021 6:11 am CLINICAL HISTORY: 70 years Male confusion COMPARISON: None. TECHNIQUE: Contiguous axial CT images obtained through the brain without IV contrast. This exam was performed according to our department optimization program which includes automated exp osure control, adjustment of the mA and/or kv according to patient size and/or use of iterative recon struction technique. FINDINGS: The ventricles and sulci are mildly prominent. Mild microvascular ischemic changes. No mass lesions. No acute hemorrhage. Atherosclerotic calcifications. Small mucous retention cyst in the left maxillary sinus. No depressed calvarial fractures. IMPRESSION: Mild atrophy and microvascular ischemic changes. No acute intracranial abnormality is id entified. If there is clinical concern for the possibility of acute ischemic change, MRI could be obt ained to better evaluate. Electronically signed by: Ze Landers MD 06/07/2021 12:17 AM [employer] Due to temporary technical issues with the PACS/Fluency reporting system, reports are being signed by the in house radiologist without review as a courtesy to ensure prompt reporting. The interpreting r adiologist is fully responsible for the content of the report.
--- NOTE | 2021-06-07 12:34 | P.CNS ---
Date of Consult: 06/07/21 Reason for Consult: Coronavirus pneumonia Chief Complaint: CHF exacerbation History of Present Illness: Patient is 70 years of age with diastolic heart failure metabolic syndrome on chronic anticoagulation therapy admitted with altered mental status patient had an SVT was cardioverted was found confused currently on BiPAP he remains unvaccinated for COVID 1-year-old male with history of chronic diastolic congestive heart failure, COPD, diabetes mellitus type 2, hypertension, CKD, CAD, atrial fibrillation currently hypoxic Allergies No Known Allergies Allergy (Verified 01/13/21 22:24) Home Medications: Gabapentin [Neurontin*] 3 cap PO TID 12/02/16 Aspirin 81 mg PO DAILY 11/10/17 glipiZIDE [Glucotrol] 10 mg PO DAILY 11/10/17 Metformin ER [Glucophage ER*] 1,000 mg PO BID 02/17/18 Aripiprazole [Abilify] 30 mg PO DAILY 08/28/20 Atorvastatin Calcium [Lipitor] 40 mg PO BEDTIME 08/28/20 Losartan Potassium [Cozaar] 100 mg PO DAILY 08/28/20 Rivaroxaban [Xarelto*] 20 mg PO DAILY 6PM 08/28/20 Albuterol Neb [Proventil 0.083% Neb Soln] 2.5 mg NEB [id number] PRN #120 amp 08/29/20 Budesonide/Formoterol Fumarate [Symbicort 160-4.5 Mcg Inhaler] 1 puff IH DAILY PRN 09/17/20 Spironolactone [Aldactone] 25 mg PO DAILY #30 tablet 09/23/20 Amiodarone HCl 100 mg PO DAILY 30 Days #30 tablet 01/14/21 Furosemide [Lasix*] 40 mg PO BID #60 tab 01/14/21 Albuterol Neb [Proventil 0.083% Neb Soln] 2.5 mg NEB Q6HP PRN #120 amp 04/21/21 Amlodipine [Norvasc*] 10 mg PO DAILY #30 tab 04/21/21 Ipratropium Neb [Atrovent*] 0.5 mg NEB [id number] PRN #120 amp 04/21/21 Nebulizer [Aeroneb Go Nebulizer] 1 each MC QID #1 each 04/21/21 predniSONE [Prednisone*] 40 mg PO DAILY #10 tab 04/21/21 - Past Medical/Surgical History Diabetic: Yes -: Hypertension -: Diabetes mellitus type 2 -: Posttraumatic stress disorder -: Anxiety -: Hepatitis-C -: Hyperlipidemia -: CAD, stent placement x2, atrial fibrillation, chronic diastolic CHF -: Obstructive sleep apnea -: COPD, tobacco abuse -: 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 - Family History Father Medical History: Other (see notes) Notes: CHF Mother Medical History: Cancer Notes: breast cancer Sister Medical History: Cancer Notes: colon cancer Brother Medical History: Cancer Notes: throat cancer - Social History Smoking Status: Unknown if ever smoked Alcohol use: No CD- Drugs: No Caffeine use: Yes Place of Residence: Home Review of Systems is unable to be obtained Physical Examination Temp Pulse Resp BP Pulse Ox 97.8 F 106 H 24 H 123/70 100 06/07/21 08:00 06/07/21 09:00 06/07/21 08:00 06/07/21 09:00 06/07/21 08:00 General: Unresponsive Respiratory: Clear to auscultation bilaterally, Diminished Laboratory Data (last 24 hrs) 06/06/21 21:20: WBC 8.80, Hgb 13.0 L, Hct 38.8 L, Plt Count 216 06/06/21 21:20: Sodium 139, Potassium 3.6, BUN 25 H, Creatinine 1.70 H, Glucose 169 H, Magnesium 1.7 L, Total Bilirubin 0.5, AST 16, ALT 25, Alkaline Phosphatase 111 - Problems (1) Pneumonia due to coronavirus disease 2018 Current Visit: Yes Status: Acute Plan: Patient is 70 years of age admitted with coronavirus pneumonia he is not vaccinated minimal interstitial changes on the chest x-ray try high flow nasal cannula oxygen titrate sat to 90% BNP is elevated consult pharmacy for Barcitinib patient is anticoagulated history of coronary artery disease abnormal renal function reduce dose of diuretic prior echo shows diastolic dysfunction
--- NOTE | 2021-06-07 12:36 | RAD REPORT ---
EXAM DESCRIPTION: CT - Thorax Wo Eduar - 06/07/2021 6:10 am CLINICAL HISTORY: 70 years Male dyspnea COMPARISON: CT chest from 12/29/2020. TECHNIQUE: Contiguous axial images obtained through the chest without IV contrast. Reformatted image s obtained. This exam was performed according to our department optimization program which includes automated exp osure control, adjustment of the mA and/or kv according to patient size and/or use of iterative recon struction technique. FINDINGS: The images are slightly suboptimal from the patient's overlying arms. The visualized upper abdominal organs appear unremarkable. Coronary artery calcifications/stents. Changes from previous sternotomy. The mediastinum appears unremarkable. Atherosclerotic calcifications in the thoracic aorta. No consolidating infiltrates or pleural effusions. No pneumothorax. Calcified granulomata in the lower lungs. Minimal calcific pleural plaquing at the left lung base. Old lower rib fractures. Degenerative changes in the spine. IMPRESSION: No acute intrathoracic abnormality is identified. Electronically signed by: Ze Landers MD 06/07/2021 12:23 AM [facility] Due to temporary technical issues with the PACS/Fluency reporting system, reports are being signed by the in house radiologist without review as a courtesy to ensure prompt reporting. The interpreting r adiologist is fully responsible for the content of the report.
[2021-06-07] MEDS: CLOPIDOGREL 75 MG TABLET PO SCH (12:49)
--- NOTE | 2021-06-07 13:05 | EKG ---
Test Date: 2021-06-06 Test Time: 20:07:52 Car Dryer: MEASUREMENT RESULTS: Intervals: Rate: 108 GA: 188 QRSD: 136 QT: 360 QTc: 482 Rawlins: P: 104 GA: 188 QRS: -73 T: 76 INTERPRETIVE STATEMENTS: Sinus tachycardia Left axis deviation Right bundle branch block Abnormal ECG Compared to ECG 04/19/2021 03:21:34 Right bundle-branch block now present Atrial fibrillation no longer present Left ventricular hypertrophy no longer present ST (T wave) deviation no longer present Possible ischemia no longer present Electronically Signed On 06-07-21 13:03:00 INFORMATION SYSTEMS OPERATOR by Jose Nunn
[2021-06-07] MEDS ORDERED: CLOPIDOGREL 75 MG TABLET ONE (13:45)
--- NOTE | 2021-06-07 14:18 | ECHO ---
HEIGHT: 6 ft 0 in WEIGHT: 260 lb 0 oz DATE OF STUDY: 06/07/[address]: Frank Ballard NP 2-DIMENSIONAL: YES M.MODE: YES DOPPLER: YES COLOR FLOW: YES TDS: PORTABLE: DEFINITY: BUBBLE STUDY: DIAGNOSIS: CONGESTIVE HEART FAILURE/ DYSPNEA CARDIAC HISTORY: CATHERIZATION: YES SURGERY: YES PROSTHETIC VALVE: PACEMAKER: MEASUREMENTS (cm) DIASTOLIC (NORMALS) SYSTOLIC (NORMALS) IVSd 1.2 (0.6-1.2) LA Diam 3.7 (1.9-4.0) LVEF 35-40% LVIDd 4.5 (3.5-5.7) LVIDs 3.3 (2.0-3.5) %FS % LVPWd 1.3 (0.6-1.2) Ao Diam 2.8 (2.0-3.7) 2 DIMENSIONAL ASSESSMENT: RIGHT ATRIUM: NORMAL LEFT ATRIUM: NORMAL RIGHT VENTRICLE: NORMAL LEFT VENTRICLE: LEFT VENTRICULAR HYPERTROPHY TRICUSPID VALVE: NORMAL MITRAL VALVE: MITRAL ANNULAR CALCIFICATION PULMONIC VALVE: NORMAL AORTIC VALVE: SCLEROSIS PERICARDIAL EFFUSION: NONE AORTIC ROOT: NORMAL LEFT VENTRICULAR WALL MOTION: MODERATE GLOBAL HYPOKINESIS DOPPLER/COLOR FLOW: MILD TRICUSPID REGURGITATION. COMMENTS: MODERATE GLOBAL HYPOKINESIS. EJECTION FRACTION 35-40%. LEFT VENTRICULAR HYPERTROPHY. MILD TRICUSPID REGURGITATION. AORTIC SCLEROSIS. MITRAL ANNULAR CALCIFICATION. TECHNOLOGIST: LILLIE PONCE
[2021-06-07 15:54] LABS: Potassium 3.1 mmol/L (3.5-5.1)
[2021-06-07] MEDS ORDERED: POTASSIUM CL SA 10 MEQ TAB PO ONE ×2 (15:58→16:16)
[2021-06-07] MEDS: FUROSEMIDE 40 MG/4 ML VIAL IV SCH (16:25)
[2021-06-07] MEDS ORDERED: RIVAROXABAN 20 MG TABLET PO SCH (17:00)
[2021-06-07] MEDS: RIVAROXABAN 15 MG TABLET PO SCH (17:00)
--- NOTE | 2021-06-07 19:14 | P.CNS ---
Date of Consult: 06/07/21 Reason for Consult: elevated creatinine Chief Complaint: CHF exacerbation History of Present Illness: 70-year-old male with past medical history of hypertension, diabetes mellitus, COPD, systolic CHF, CKD with baseline creatinine 1.3-1.6 with intermittent car diorenal syndrome and elevation of the creatinine admitted now for SVT requiring cardioversion by EMS on the field , on presentation patient was noted with acute respiratory distress requiring BiPAP, chest x-ray shows pulmonary edema as well as elevated proBNP. He was started on IV Lasix with improvement in his respiratory status. He has been weaned down to nasal cannula O2. Patient is very confused. Is also noted with Covid positive status. He was noted with elevated creatinine of 2.1. Repeat creatinine now down to 1.67. He is making urine very well Allergies No Known Allergies Allergy (Verified 01/13/21 22:24) Home Medications: Gabapentin [Neurontin*] 3 cap PO TID 12/02/16 Aspirin 81 mg PO DAILY 11/10/17 glipiZIDE [Glucotrol] 10 mg PO DAILY 11/10/17 Metformin ER [Glucophage ER*] 1,000 mg PO BID 02/17/18 Aripiprazole [Abilify] 30 mg PO DAILY 08/28/20 Atorvastatin Calcium [Lipitor] 40 mg PO BEDTIME 08/28/20 Losartan Potassium [Cozaar] 100 mg PO DAILY 08/28/20 Rivaroxaban [Xarelto*] 20 mg PO DAILY 6PM 08/28/20 Albuterol Neb [Proventil 0.083% Neb Soln] 2.5 mg NEB [id number] PRN #120 amp 08/29/20 Budesonide/Formoterol Fumarate [Symbicort 160-4.5 Mcg Inhaler] 1 puff IH DAILY PRN 09/17/20 Spironolactone [Aldactone] 25 mg PO DAILY #30 tablet 09/23/20 Amiodarone HCl 100 mg PO DAILY 30 Days #30 tablet 01/14/21 Furosemide [Lasix*] 40 mg PO BID #60 tab 01/14/21 Albuterol Neb [Proventil 0.083% Neb Soln] 2.5 mg NEB Q6HP PRN #120 amp 04/21/21 Amlodipine [Norvasc*] 10 mg PO DAILY #30 tab 04/21/21 Ipratropium Neb [Atrovent*] 0.5 mg NEB [id number] PRN #120 amp 04/21/21 Nebulizer [Aeroneb Go Nebulizer] 1 each QID #1 each 04/21/21 predniSONE [Prednisone*] 40 mg PO DAILY #10 tab 04/21/21 - Past Medical/Surgical History Diabetic: Yes -: Hypertension -: Diabetes mellitus type 2 -: Posttraumatic stress disorder -: Anxiety -: Hepatitis-C -: Hyperlipidemia -: CAD, stent placement x2, atrial fibrillation, chronic diastolic CHF -: Obstructive sleep apnea -: COPD, tobacco abuse -: 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 - Family History Father History Unknown: Yes Medical History: Other (see notes) Notes: CHF Mother Medical History: Cancer Notes: breast cancer Sister Medical History: Cancer Notes: colon cancer Brother Medical History: Cancer Notes: throat cancer - Social History Smoking Status: Unknown if ever smoked Alcohol use: No CD- Drugs: No Caffeine use: Yes Place of Residence: Home Review of Systems is unable to be obtained (confused) Physical Examination Temp Pulse Resp BP Pulse Ox 98.1 F 97 H 22 H 99/62 98 06/07/21 16:00 06/07/21 16:25 06/07/21 16:00 06/07/21 16:25 06/07/21 16:00 Laboratory Data (last 24 hrs) 06/06/21 21:20: WBC 8.80, Hgb 13.0 L, Hct 38.8 L, Plt Count 216 06/06/21 21:20: Sodium 139, Potassium 3.6, BUN 25 H, Creatinine 1.70 H, Glucose 169 H, Magnesium 1.7 L, Total Bilirubin 0.5, AST 16, ALT 25, Alkaline Phosphatase 111 - Problems (1) Pneumonia due to coronavirus disease 2018 Current Visit: Yes Status: Acute (2) Acute exacerbation of chronic obstructive airways disease Onset Date: 02/18/18 Current Visit: No Status: Acute (3) Acute on chronic diastolic (congestive) heart failure Onset Date: 05/07/17 Current Visit: No Status: Acute (4) Acute systolic CHF (congestive heart failure) Onset Date: 02/18/18 Current Visit: No Status: Acute (5) CHF (congestive heart failure) Current Visit: No Status: Acute Qualifiers: Qualified Code(s): I50.33 - Acute on chronic diastolic (congestive) heart failure (6) Elevated troponin Onset Date: 11/11/17 Current Visit: No Status: Acute Physician Review: Patient Assessed, Agree with Above Assessment and Plan Physician Review Additional Text: Physical examination Generaldue age male, calm, on nasal cannula O2, confused HEENTPERRLA/EOMI Cardiovascular/S1-S2, tachycardic Respiratorydecreased breath sounds bilateral bases, no intercostal muscle use GIfull, soft, bowel sounds positive Musculoskeletalno pedal edema, no calf tenderness Neuroalert, awake, confused Labsreviewed Impression Acute kidney injurylikely due to ATN from hypotension/cardiorenal syndrome Systolic CHFEF of 35% with global hypokinesis Hypertension Diabetes mellitus Presumed metabolic encephalopathy Atrial fib Plan Continue IV diuresis Borderline low blood pressure, may need add midodrine Continue to optimize blood pressure Keep MAP greater than 70 Creatinine improving, continue to follow Avoid hypotension Renally dose all meds Avoid ACEI creatinine less than 1.4 May benefit from Entresto use. Thank you Dr. Serna for this consult we will continue to follow along Time Spent Managing Pts care (In Minutes): 65
[2021-06-07 23:17] LABS: Urine Appearance CLEAR (Clear); Urine Bilirubin NEGATIVE (Negative); Urine Blood 2+ (Negative); Urine Color YELLOW (Yellow); Urine Glucose NEGATIVE (Negative); Urine Protein 2+ (Negative); Urine Urobilinogen 0.2 mg/dL (0.2-1.0)
[2021-06-07 23:25] LABS: Urine Microscopic Reflex ORDER UMIC
[2021-06-07 23:52] LABS: Urine Bacteria <20 /HPF (NONE SEEN); Urine RBC <5 /HPF (NONE SEEN)
[2021-06-08 04:22] LABS: Absolute Lymphocytes (CBC) 0.5 K/uL (0.7-4.9); Hematocrit 42.6 % (39.6-49.0); Lymphocytes % 5.8 % (15.3-44.8); MPV 8.7 fL (7.6-11.3); RBC Red Blood Cell Count 5.05 M/uL (4.33-5.43)
[2021-06-08 04:58] LABS: Albumin 3.7 g/dL (3.4-5.0); Bilirubin Total 0.5 mg/dL (0.2-1.0); C-Reactive Protein 32.2 mg/L (<3.00); Protein, Total 8.2 g/dL (6.4-8.2)
[2021-06-08 05:14] LABS: Potassium 3.4 mmol/L (3.5-5.1)
[2021-06-08 05:31] VITALS: BMI 33.7
[2021-06-08] MEDS: INSULIN -REGULAR HUMAN 50 UNIT/0.5 ML ML SQ SCH ×4 (07:30→21:00)
--- NOTE | 2021-06-08 07:40 | RAD REPORT ---
EXAM DESCRIPTION: [place] Single View06/08/2021 5:53 am CLINICAL HISTORY: Respiratory failure COMPARISON: June 06, 2021 FINDINGS: The lungs appear clear of acute infiltrate. The heart is mildly enlarged. Postsurgical changes involve the chest IMPRESSION: No acute abnormalities displayed
[2021-06-08] MEDS: LORazepam 2 MG/ML VIAL IV PRN ×6 (08:15→23:34)
[2021-06-08] MEDS ORDERED: LORazepam 2 MG/ML VIAL ONE ×5 (08:17→23:33)
[2021-06-08] MEDS: FUROSEMIDE 40 MG/4 ML VIAL IV SCH (09:00)
[2021-06-08] MEDS: CLOPIDOGREL 75 MG TABLET PO SCH (09:00)
[2021-06-08] MEDS: METHYLPREDNISOLONE 40 MG INJ IV SCH ×2 (09:00→20:13)
--- NOTE | 2021-06-08 09:31 | RAD REPORT ---
EXAM DESCRIPTION: MRI - Brain Wo Cont - 06/08/2021 9:23 am CLINICAL HISTORY: Confusion/alteration of consciousness COMPARISON: Head CT June 07, 2021 TECHNIQUE: Axial, sagittal, and coronal magnetic resonance images of the brain were obtained. FINDINGS: No significant abnormal signal within the brain. Mild cerebral atrophy Diffusion-weighted/ADC mapping does not reveal evidence of acute infarction. The ventricles are normal caliber. An extra-axial fluid collection is not noted. Fluid within the sinuses/mastoids is not seen IMPRESSION: No acute intracranial abnormality noted
[2021-06-08] MEDS ORDERED: LORazepam 2 MG/ML VIAL IV PRN (09:50)
[2021-06-08] MEDS ORDERED: METHYLPREDNISOLONE 40 MG INJ ONE ×2 (10:12→19:53)
[2021-06-08] MEDS ORDERED: FUROSEMIDE 40 MG/4 ML VIAL ONE (10:12)
--- NOTE | 2021-06-08 14:22 | P.PN ---
Subjective Date of Service: 06/08/21 Chief Complaint: CHF exacerbation Subjective: No new changes (Patient is still confused. He is getting very agitated.) Physical Examination - Vital Signs Temperature: 97.6 F Blood Pressure: 164/73 Pulse: 102 Respirations: 19 Pulse Ox (%): 99 - Physical Exam General: In no apparent distress, Confused, Other (AAOX1) HEENT: Atraumatic, Normocephalic Respiratory: Other (unlaboured breathing) Gastrointestinal: Soft and benign, Non-distended Musculoskeletal: No clubbing, No swelling Neurological: Abnormal speech, Abnormal affect Assessment And Plan - Current Problems (Diagnosis) (1) Pneumonia due to coronavirus disease 2018 Current Visit: Yes Status: Acute (2) Acute respiratory failure with hypoxia Current Visit: No Status: Acute (3) Acute systolic CHF (congestive heart failure) Onset Date: 02/18/18 Current Visit: No Status: Acute (4) Chronic kidney disease, stage 3 Current Visit: No Status: Acute (5) Elevated troponin Onset Date: 11/11/17 Current Visit: No Status: Acute (6) SVT (supraventricular tachycardia) Current Visit: No Status: Acute (7) Afib Current Visit: No Status: Chronic Qualifiers: Atrial fibrillation type: paroxysmal Qualified Code(s): I48.0 - Paroxysmal atrial fibrillation (8) Obesity Onset Date: 11/11/17 Current Visit: No Status: Chronic Qualifiers: Obesity type: due to excess calories Obesity classification: adult class 3 (BMI >= 40) Serious obesity comorbidity presence: with serious comorbidity Body mass index: BMI 40.0-44.9 Qualified Code(s): E66.01 - Morbid (severe) obesity due to excess calories; Z68.41 - Body mass index [BMI] 40.0-44.9, adult (9) Obstructive sleep apnea Onset Date: 11/11/17 Current Visit: No Status: Chronic (10) Tobacco abuse Current Visit: No Status: Chronic (11) Type 2 diabetes mellitus without complications Onset Date: 05/07/17 Current Visit: No Status: Chronic Qualifiers: Diabetes mellitus chcf insulin use: without intermodal customer service use Qualified Code(s): E11.9 - Type 2 diabetes mellitus without complications Physician Review: Patient Assessed, Agree with Above Assessment and Plan Physician Review Additional Text: Assessment Patient is a 70 year old male with a PMH of HTN, Type II diabetes mellitus, CHF and CAD S/P CABG. He was brought in for evaluation of wide complex tachycardia. 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 EMS arrived on site and cardioverted the patient before they brought him to the ER. His HR was apparently in the 140's. He was also given a bolus of amiodarone prior to arrival. Patient's rate has been controlled since his arrival. Additional work up here shows COVID 19, NSTEMI, possibly decompensated CHF. His rate is controlled since his admission, and has been weaned off BIPAP. He has been agitated today. Brain MRI ruled out stroke V tach Acute metabolic encephalopathy Acute systolic CHF NSTEMI COPD CKD stage III COVID 19 PLAN: PRN Ativan placed for agitations. Restraint order placed Continue supplemental O2 as tolerated Continue diuresis Monitor I/O BP control Nephrology on board Neurology consulted for unexplained encephalopathy Cardiology was consulted on admission as well. NSTEMI. TTE with drop in LVEF. Continue ICU stay
[2021-06-08] MEDS ORDERED: ARIPIPRAZOLE 30 MG PO SCH (14:23)
[2021-06-08] MEDS ORDERED: HOME MED 1 EA UNK (Budesonide/Formoterol Fumarate [Symbicort 160-4.5 Mcg Inhaler] 10.2 GM IH PRN (14:23)
--- NOTE | 2021-06-08 14:58 | RAD REPORT ---
EXAM DESCRIPTION: - CP - 06/08/2021 2:23 pm CLINICAL HISTORY: ams Headache, drowsiness COMPARISON: No comparisons TECHNIQUE: Real-time sonographic evaluation of both carotid systems was performed. Doppler interroga tion was performed with waveform tracing bilaterally. FINDINGS: The exam was limited by patient head positioning and difficulty with access to the desired sonographic windows. Normal high resistance waveforms are noted in both external carotid arteries. The common carotid cynthia taniya and internal carotid arteries show normal low resistance waveforms. Moderate hard plaquing is seen in both carotid bulbs. Peak systolic and end diastolic velocity values and the ICA/CCA ratios are in the non-hemodynamically significant range. Visually, less than 50% laura nosis based on NASCET criteria seen involving both proximal ICAs Antegrade flow seen in both vertebral arteries. IMPRESSION: Moderate hard plaquing noted in both carotid bulbs. Less than 50% stenosis based on NASCET criteria of both proximal internal carotid arteries.
[2021-06-08 15:05] LABS: Barbiturates NEGATIVE (NEGATIVE); Benzodiazepines NEGATIVE (NEGATIVE); Cocaine NEGATIVE (NEGATIVE); METHAMPHETAM NEGATIVE (NEGATIVE); Methadone NEGATIVE (NEGATIVE); Opiates NEGATIVE (NEGATIVE); Phencyclidine NEGATIVE (NEGATIVE); THC Cannibis POSITIVE (NEGATIVE)
--- NOTE | 2021-06-08 15:38 | P.PN ---
Subjective Date of Service: 06/08/21 Chief Complaint: CHF exacerbation Subjective: No new changes Physical Examination - Vital Signs Temperature: 97.6 F Blood Pressure: 164/73 Pulse: 102 Respirations: 19 Pulse Ox (%): 99 Assessment And Plan - Current Problems (Diagnosis) (1) Pneumonia due to coronavirus disease 2018 Current Visit: Yes Status: Acute (2) Acute exacerbation of chronic obstructive airways disease Onset Date: 02/18/18 Current Visit: No Status: Acute (3) Acute on chronic diastolic (congestive) heart failure Onset Date: 05/07/17 Current Visit: No Status: Acute (4) Acute systolic CHF (congestive heart failure) Onset Date: 02/18/18 Current Visit: No Status: Acute (5) CHF (congestive heart failure) Current Visit: No Status: Acute Qualifiers: Qualified Code(s): I50.33 - Acute on chronic diastolic (congestive) heart noah lure (6) Elevated troponin Onset Date: 11/11/17 Current Visit: No Status: Acute Physician Review: Patient Assessed, Agree with Above Assessment and Plan Physician Review Additional Text: Physical examination Generaldue age male, calm, on nasal cannula O2, confused HEENTPERRLA/EOMI Cardiovascular/S1-S2, tachycardic Respiratorydecreased breath sounds bilateral bases, no intercostal muscle use GIfull, soft, bowel sounds positive Musculoskeletalno pedal edema, no calf tenderness Neuroalert, awake, confused Labsreviewed Impression Acute kidney injurylikely due to ATN from hypotension/cardiorenal syndrome Systolic CHFEF of 35% with global hypokinesis Hypertension Diabetes mellitus Presumed metabolic encephalopathy Atrial fib Plan - cr still worsening to 2.1 -will reduce lasix dosage since improved CXR -follow workup for CVA -Improved hypotension , start BP meds -Keep MAP greater than 70 -Creatinine improving, continue to follow Avoid hypotension Renally dose all meds Avoid ACEI creatinine less than 1.4 May benefit from Entresto use.
[2021-06-08] MEDS: RIVAROXABAN 15 MG TABLET PO SCH (17:00)
[2021-06-08] MEDS: ATORVASTATIN 40 MG TAB PO SCH (20:16)
[2021-06-08] MEDS ORDERED: ATORVASTATIN 20 MG TAB ONE (20:18)
[2021-06-08] MEDS ORDERED: ZIPRASIDONE MESYLA 20 MG/VIAL IM ONE ×2 (23:08→23:17)
[2021-06-08] MEDS ORDERED: WATER FOR INJ,STERILE 10 ML IM PRN (23:08)
[2021-06-08] MEDS ORDERED: WATER FOR INJ,STERILE 10 ML ONE (23:18)
[2021-06-09] MEDS ORDERED: LORazepam 2 MG/ML VIAL ONE ×3 (03:50→14:51)
[2021-06-09] MEDS: LORazepam 2 MG/ML VIAL IV PRN ×4 (04:00→20:16)
[2021-06-09 04:38] LABS: Absolute Lymphocytes (CBC) 0.7 K/uL (0.7-4.9); Hematocrit 48.2 % (39.6-49.0); Lymphocytes % 4.5 % (15.3-44.8); MPV 8.7 fL (7.6-11.3)
[2021-06-09 05:01] LABS: Albumin 3.6 g/dL (3.4-5.0); Bilirubin Total 0.5 mg/dL (0.2-1.0); Potassium 3.4 mmol/L (3.5-5.1); Protein, Total 8.3 g/dL (6.4-8.2)
[2021-06-09] MEDS: INSULIN -REGULAR HUMAN 50 UNIT/0.5 ML ML SQ SCH ×4 (07:30→21:00)
--- NOTE | 2021-06-09 07:38 | RAD REPORT ---
EXAM DESCRIPTION: RAD - Chest Single View - 06/09/2021 6:00 am CLINICAL HISTORY: Respiratory failure COMPARISON: Chest Single View dated 06/08/2021; Chest Single View dated 06/06/2021; Chest Single View da oziel 04/21/2021; Chest Single View dated 04/19/2021 FINDINGS: Lines: None. Lungs: No evidence of edema or pneumonia. Pleural: No significant pleural effusions or pneumothorax. Cardiac: The heart size is within normal limits. Bones: No acute fractures. Other: IMPRESSION: No acute cardiopulmonary disease.
[2021-06-09] MEDS ORDERED: FUROSEMIDE 40 MG/4 ML VIAL ONE (08:46)
[2021-06-09] MEDS ORDERED: ASPIRIN 81 MG CHEWABLE TABLET ONE (08:46)
[2021-06-09] MEDS ORDERED: AMIODARONE HCL 200 MG TAB ONE (08:46)
[2021-06-09] MEDS ORDERED: CLOPIDOGREL 75 MG TABLET ONE (08:59)
[2021-06-09] MEDS: ARIPiprazole 5 MG TAB PO SCH (09:00)
[2021-06-09] MEDS: CLOPIDOGREL 75 MG TABLET PO SCH (09:00)
[2021-06-09] MEDS: METHYLPREDNISOLONE 40 MG INJ IV SCH ×2 (09:00→21:00)
[2021-06-09] MEDS ORDERED: AMIODARONE HCL 200 MG TAB PO SCH (09:00)
[2021-06-09] MEDS: ASPIRIN 81 MG CHEWABLE TABLET PO SCH (09:00)
[2021-06-09] MEDS ORDERED: METHYLPREDNISOLONE 40 MG INJ ONE ×2 (09:00→21:12)
[2021-06-09] MEDS ORDERED: FUROSEMIDE 40 MG/4 ML VIAL IV SCH (09:00)
[2021-06-09] MEDS: THIAMINE 200 MG/2 ML INJ IVP SCH ×2 (12:06→21:00)
--- NOTE | 2021-06-09 12:10 | P.PN ---
Subjective Date of Service: 06/09/21 Chief Complaint: Altered mental status Patient has significant altered mental status although he will eat when fed otherwise condition remains stable Review of Systems is unable to be obtained Physical Examination - Vital Signs Temperature: 98.7 F Blood Pressure: 175/90 Pulse: 120 Respirations: 18 Pulse Ox (%): 96 - Physical Exam General: Delirious Respiratory: Clear to auscultation bilaterally Cardiovascular: No edema, Regular rate/rhythm Assessment And Plan - Current Problems (Diagnosis) (1) Pneumonia due to coronavirus disease 2018 Current Visit: Yes Status: Acute Plan: Patient is delirious possible Covid encephalopathy white count is now mildly elevated reduce the dose of steroids add IV thiamine patient's blood pressure is elevated has renal failure on Lasix has congestive heart failure on echocardiogram no significant Covid pneumonia DC Ativan use Haldol as needed Physician Review: Patient Assessed, Agree with Above Assessment and Plan
[2021-06-09] MEDS ORDERED: HYDRALAZINE HCL 20 MG/ML VIAL IV PRN (14:37)
[2021-06-09] MEDS: AMLODIPINE 10 MG TAB PO SCH (14:37)
--- NOTE | 2021-06-09 14:40 | P.PN ---
Subjective Date of Service: 06/09/21 Chief Complaint: Altered mental status Subjective: No new changes Physical Examination - Vital Signs Temperature: 98.7 F Blood Pressure: 175/90 Pulse: 120 Respirations: 18 Pulse Ox (%): 96 Assessment And Plan - Current Problems (Diagnosis) (1) Pneumonia due to coronavirus disease 2018 Current Visit: Yes Status: Acute (2) Acute exacerbation of chronic obstructive airways disease Onset Date: 02/18/18 Current Visit: No Status: Acute (3) Acute on chronic diastolic (congestive) heart failure Onset Date: 05/07/17 Current Visit: No Status: Acute (4) Acute systolic CHF (congestive heart failure) Onset Date: 02/18/18 Current Visit: No Status: Acute (5) CHF (congestive heart failure) Current Visit: No Status: Acute Qualifiers: Qualified Code(s): I50.33 - Acute on chronic diastolic (congestive) heart failure (6) Elevated troponin Onset Date: 11/11/17 Current Visit: No Status: Acute Physician Review: Patient Assessed, Agree with Above Assessment and Plan Physician Review Additional Text: Physical examination Generaldue age male, calm, on nasal cannula O2, confused HEENTPERRLA/EOMI Cardiovascular/S1-S2, tachycardic Respiratorydecreased breath sounds bilateral bases, no intercostal muscle use GIfull, soft, bowel sounds positive Musculoskeletalno pedal edema, no calf tenderness Neuroalert, awake, confused Labsreviewed Impression Acute kidney injurylikely due to ATN from hypotension/cardiorenal syndrome Systolic CHFEF of 35% with global hypokinesis Hypertension Diabetes mellitus Presumed metabolic encephalopathy Atrial fib Plan - still elevated but stable creatinine at 2.03 -c/w lasix dosage since improved CXR -follow workup for CVA -resolved hypotension , elevated BP now , add norvasc -Keep MAP greater than 70 -Creatinine improving, continue to follow Avoid hypotension Renally dose all meds Avoid ACEI creatinine less than 1.4 May benefit from Entresto use.
[2021-06-09] MEDS ORDERED: POTASSIUM 25 MEQ EFFERV TAB PO ONE (14:41)
[2021-06-09] MEDS ORDERED: METOPROLOL TAR 25 MG TAB PO SCH (15:10)
--- NOTE | 2021-06-09 15:12 | P.PN ---
Subjective Date of Service: 06/09/21 Chief Complaint: Altered mental status Subjective: Worsening (Patient continues to be agitated. Being treated for COVID encephalopathy. No history of excessive ETOH consumption. Utox + THC) Physical Examination - Vital Signs Temperature: 98.7 F Blood Pressure: 175/90 Pulse: 120 Respirations: 18 Pulse Ox (%): 96 - Physical Exam General: Confused, Obese, Other (agitated and tremelous) HEENT: Atraumatic, Normocephalic Respiratory: Other (unlaboured breathing) Cardiovascular: Other (tachycardic) Gastrointestinal: Soft and benign, Non-distended Musculoskeletal: No clubbing, No swelling, No contractures Assessment And Plan - Current Problems (Diagnosis) (1) Pneumonia due to coronavirus disease 2018 Current Visit: Yes Status: Acute (2) Acute respiratory failure with hypoxia Current Visit: No Status: Acute (3) Acute systolic CHF (congestive heart failure) Onset Date: 02/18/18 Current Visit: No Status: Acute (4) Chronic kidney disease, stage 3 Current Visit: No Status: Acute (5) Elevated troponin Onset Date: 11/11/17 Current Visit: No Status: Acute (6) SVT (supraventricular tachycardia) Current Visit: No Status: Acute (7) Afib Current Visit: No Status: Chronic Qualifiers: Atrial fibrillation type: paroxysmal Qualified Code(s): I48.0 - Paroxysmal atrial fibrillation (8) Obesity Onset Date: 11/11/17 Current Visit: No Status: Chronic Qualifiers: Obesity type: due to excess calories Obesity classification: adult class 3 (BMI >= 40) Serious obesity comorbidity presence: with serious comorbidity Body mass index: BMI 40.0-44.9 Qualified Code(s): E66.01 - Morbid (severe) obesity due to excess calories; Z68.41 - Body mass index [BMI] 40.0-44.9, adult (9) Obstructive sleep apnea Onset Date: 11/11/17 Current Visit: No Status: Chronic (10) Tobacco abuse Current Visit: No Status: Chronic (11) Type 2 diabetes mellitus without complications Onset Date: 05/07/17 Current Visit: No Status: Chronic Qualifiers: Diabetes mellitus alf insulin use: without intermediate accountant use Qualified Code(s): E11.9 - Type 2 diabetes mellitus without complications Physician Review: Patient Assessed, Agree with Above Assessment and Plan Physician Review Additional Text: Assessment Patient is a 70 year old male with a PMH of HTN, Type II diabetes mellitus, CHF and CAD S/P CABG. He was brought in for evaluation of wide complex tachycardia. 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 EMS arrived on site and cardioverted the patient before they brought him to the ER. His HR was apparently in the 140's. He was also given a bolus of amiodarone prior to arrival. His rate was controlled the first days of admission. Additional work up here shows COVID 19, NSTEMI, possibly decompensated CHF. He has been weaned off BIPAP and is currently on room air. His hospital course is complicated by acute delirium. He is very agitated. Brain MRI ruled out stroke. V tach Acute metabolic encephalopathy - COVID encephalopathy Acute systolic CHF- TTE with LVEF of 35% with global hypokinesis Acute hypoxemic respiratory failure-resolved VIANNEY-possibly due to cardiorenal syndrome Accelerated HTN-possibly from agitation and encephalopathy NSTEMI COPD CKD stage III COVID 19 PLAN: Continue IV thiamine PRN haldol placed for agitations. Restraint order placed Neurology consulted for unexplained encephalopathy Continue lasix IV 40 mg daily. Nephrology adjusting dosage Monitor I/O Very hypertensive. PO and PRN BP meds on board Amiodarone for afib Continue ICU stay
[2021-06-09] MEDS ORDERED: LABETALOL 20 MG/4ML SYRINGE IV PRN (15:16)
[2021-06-09] MEDS ORDERED: THIAMINE HCL 100 MG TABLET ONE (16:40)
[2021-06-09] MEDS ORDERED: AMLODIPINE 10 MG TAB ONE (16:40)
[2021-06-09] MEDS ORDERED: POTASSIUM 25 MEQ EFFERV TAB ONE (16:41)
[2021-06-09] MEDS ORDERED: METOPROLOL TAR 25 MG TAB ONE (16:41)
[2021-06-09] MEDS: RIVAROXABAN 15 MG TABLET PO SCH (16:47)
[2021-06-09 20:18] VITALS: O2SAT 95
[2021-06-09] MEDS: ATORVASTATIN 40 MG TAB PO SCH (21:00)
[2021-06-09] MEDS ORDERED: THIAMINE 200 MG/2 ML INJ ONE (21:11)
[2021-06-09] MEDS ORDERED: ATORVASTATIN 20 MG TAB ONE (21:12)
[2021-06-09 21:13] LABS: RPR (Rapid Plasma Reagin) NON-REACT (NON-REACT)
[2021-06-10] MEDS: HALOPERIDOL LACT 5 MG/ML INJ IV PRN ×2 (00:30→04:00)
[2021-06-10] MEDS ORDERED: LORazepam 2 MG/ML VIAL ONE ×2 (02:15→06:18)
[2021-06-10] MEDS: LORazepam 2 MG/ML VIAL IV PRN ×2 (02:21→06:15)
[2021-06-10] MEDS ORDERED: HALOPERIDOL LACT 5 MG/ML INJ ONE (03:53)
[2021-06-10 04:13] LABS: Absolute Lymphocytes (CBC) 0.8 K/uL (0.7-4.9); Hematocrit 47.9 % (39.6-49.0); Lymphocytes % 7.7 % (15.3-44.8); MPV 8.8 fL (7.6-11.3); RBC Red Blood Cell Count 5.61 M/uL (4.33-5.43)
[2021-06-10 04:57] LABS: Albumin 3.4 g/dL (3.4-5.0); Bilirubin Total 0.5 mg/dL (0.2-1.0); C-Reactive Protein 10.9 mg/L (<3.00); Potassium 3.1 mmol/L (3.5-5.1); Protein, Total 7.7 g/dL (6.4-8.2)
[2021-06-10] MEDS: INSULIN -REGULAR HUMAN 50 UNIT/0.5 ML ML SQ SCH (07:30)
[2021-06-10] MEDS ORDERED: METOPROLOL TAR 50 MG TAB PO SCH (08:05)
[2021-06-10] MEDS ORDERED: POTASSIUM CL 20 MEQ in NA CHLORIDE 0.9% 20 MEQ/100 ML BAG IV SCH (09:00)
[2021-06-10] MEDS: ARIPiprazole 5 MG TAB PO SCH (09:00)
[2021-06-10] MEDS: METHYLPREDNISOLONE 40 MG INJ IV SCH (09:00)
[2021-06-10] MEDS: AMLODIPINE 10 MG TAB PO SCH (09:00)
[2021-06-10] MEDS: CLOPIDOGREL 75 MG TABLET PO SCH (09:00)
[2021-06-10] MEDS ORDERED: KCL 20 MEQ/100 mL IVPB 100 ML IV SCH (09:00)
[2021-06-10] MEDS: ASPIRIN 81 MG CHEWABLE TABLET PO SCH (09:00)
[2021-06-10] MEDS ORDERED: METOPROLOL TAR 50 MG TAB ONE (09:47)
[2021-06-10] MEDS ORDERED: ASPIRIN 81 MG CHEWABLE TABLET ONE (09:47)
[2021-06-10] MEDS ORDERED: NA CHLORIDE 0.9% 500 ML ONE (09:48)
[2021-06-10] MEDS ORDERED: KCL 20 MEQ/100 mL IVPB 100 ML IV ONE (09:48)
[2021-06-10] MEDS ORDERED: METHYLPREDNISOLONE 40 MG INJ ONE (09:48)
[2021-06-10] MEDS ORDERED: AMLODIPINE 10 MG TAB ONE (09:48)
[2021-06-10] MEDS ORDERED: CLOPIDOGREL 75 MG TABLET ONE (09:48)
[2021-06-10] MEDS ORDERED: ARIPiprazole 5 MG TAB ONE (09:48)
--- NOTE | 2021-06-10 10:53 | P.PN ---
Subjective Date of Service: 06/10/21 Chief Complaint: Altered mental status Patient is patient is drinking with assistance minimally responsive Review of Systems is unable to be obtained Physical Examination - Vital Signs Temperature: 98.0 F Blood Pressure: 172/116 Pulse: 120 Respirations: 20 Pulse Ox (%): 97 - Physical Exam General: Alert Respiratory: Clear to auscultation bilaterally, Diminished Assessment And Plan - Current Problems (Diagnosis) (1) Pneumonia due to coronavirus disease 2018 Current Visit: Yes Status: Acute Plan: It appears that he is improved from yesterday continue with present therapy use nutritional supplement start on D5 patient is now becoming hyponatremic start on D5 water DC IV Lasix MRI of the brain is negative chest x-ray clear Physician Review: Patient Assessed, Agree with Above Assessment and Plan
[2021-06-10] MEDS ORDERED: D5W 1,000 ML IV SCH (11:00)
[2021-06-10 11:04] VITALS: BP 134/74; TEMP 98.9
[2021-06-10] MEDS ORDERED: AMIODARONE HCL 200 MG TAB ONE (12:35)
--- NOTE | 2021-06-10 13:37 | P.DS ---
Admission Date: 06/07/21 Discharge Date: 06/10/21 Disposition: TRANSFER TO [facility] Reason for Admission: Altered mental status - Problems (1) Pneumonia due to coronavirus disease 2018 Current Visit: Yes Status: Acute (2) Acute respiratory failure with hypoxia Current Visit: No Status: Acute (3) Acute systolic CHF (congestive heart failure) Onset Date: 02/18/18 Current Visit: No Status: Acute (4) Chronic kidney disease, stage 3 Current Visit: No Status: Acute (5) Elevated troponin Onset Date: 11/11/17 Current Visit: No Status: Acute (6) SVT (supraventricular tachycardia) Current Visit: No Status: Acute (7) Afib Current Visit: No Status: Chronic Qualifiers: Atrial fibrillation type: paroxysmal Qualified Code(s): I48.0 - Paroxysmal atrial fibrillation (8) Obesity Onset Date: 11/11/17 Current Visit: No Status: Chronic Qualifiers: Obesity type: due to excess calories Obesity classification: adult class 3 (BMI >= 40) Serious obesity comorbidity presence: with serious comorbidity Body mass index: BMI 40.0-44.9 Qualified Code(s): E66.01 - Morbid (severe) obesity due to excess calories; Z68.41 - Body mass index [BMI] 40.0-44.9, adult (9) Obstructive sleep apnea Onset Date: 11/11/17 Current Visit: No Status: Chronic (10) Tobacco abuse Current Visit: No Status: Chronic (11) Type 2 diabetes mellitus without complications Onset Date: 05/07/17 Current Visit: No Status: Chronic Qualifiers: 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 He was brought in by EMS after he was cardioverted for wide complex tachycardia. He was reportedly altered when called EMS. Since his admission, his heart rate has been controlled. He was found to have COVID 19. CXR with multifocal infiltrates concerning for PNA/CHF. He did well on BIPAP and lasix and was successfully weaned off oxygen. His hospital course was complicated by delirium which persisted throughout the rest of his hospitalization. COVID encephalopathy was considered. Neurology was consulted for this case. His brain MRI was negative. requested he be transferred. Patient has been here for 3 days. . Vital Signs/Physical Exam: Temp Pulse Resp BP Pulse Ox 98.9 F 108 H 24 H 134/74 96 06/10/21 11:00 06/10/21 11:00 06/10/21 11:00 06/10/21 11:00 06/10/21 11:00 General: Confused, Other (agitated) HEENT: Atraumatic, Normocephalic Cardiovascular: No edema Musculoskeletal: No clubbing, No swelling, No contractures, No erythema Neurological: Abnormal affect Laboratory Data at Discharge: WBC 10.10 K/uL (4.3-10.9) D 06/10/21 03:35 Hgb 15.3 g/dL (13.6-17.9) 06/10/21 03:35 Hct 47.9 % (39.6-49.0) 06/10/21 03:35 Plt Count 203 K/uL (152-406) 06/10/21 03:35 PT 13.2 SECONDS (9.5-12.5) H 06/07/21 01:17 INR 1.15 06/07/21 01:17 Sodium 148 mmol/L (136-145) H 06/10/21 03:35 Potassium 3.1 mmol/L (3.5-5.1) L 06/10/21 03:35 BUN 68 mg/dL (7-18) H 06/10/21 03:35 Creatinine 2.05 mg/dL (0.55-1.3) H 06/10/21 03:35 Glucose 224 mg/dL (74-106) H 06/10/21 03:35 Magnesium 2.4 D 06/09/21 15:54 Total Bilirubin 0.5 mg/dL (0.2-1.0) 06/10/21 03:35 AST 37 U/L (15-37) 06/10/21 03:35 ALT 34 U/L (12-78) 06/10/21 03:35 Alkaline Phosphatase 94 U/L (45-117) 06/10/21 03:35 Triglycerides 115 mg/dL (<150) 06/07/21 01:17 Cholesterol 237 mg/dL (<200) H 06/07/21 01:17 HDL Cholesterol 37 mg/dL (40-60) L 06/07/21 01:17 Cholesterol/HDL Ratio 6.41 06/07/21 01:17 Home Medications: Gabapentin [Neurontin*] 3 cap PO TID 12/02/16 Aspirin 81 mg PO DAILY 11/10/17 glipiZIDE [Glucotrol] 10 mg PO DAILY 11/10/17 Metformin ER [Glucophage ER*] 1,000 mg PO BID 02/17/18 Aripiprazole [Abilify] 30 mg PO DAILY 08/28/20 Atorvastatin Calcium [Lipitor] 40 mg PO BEDTIME 08/28/20 Losartan Potassium [Cozaar] 100 mg PO DAILY 08/28/20 Rivaroxaban [Xarelto*] 20 mg PO DAILY 6PM 08/28/20 Albuterol Neb [Proventil 0.083% Neb Soln] 2.5 mg NEB [id number] PRN #120 amp 08/29/20 Budesonide/Formoterol Fumarate [Symbicort 160-4.5 Mcg Inhaler] 1 puff IH DAILY PRN 09/17/20 Spironolactone [Aldactone] 25 mg PO DAILY #30 tablet 09/23/20 Amiodarone HCl 100 mg PO DAILY 30 Days #30 tablet 01/14/21 Furosemide [Lasix*] 40 mg PO BID #60 tab 01/14/21 Albuterol Neb [Proventil 0.083% Neb Soln] 2.5 mg NEB Q6HP PRN #120 amp 04/21/21 Amlodipine [Norvasc*] 10 mg PO DAILY #30 tab 04/21/21 Ipratropium Neb [Atrovent*] 0.5 mg NEB [id number] PRN #120 amp 04/21/21 Nebulizer [Aeroneb Go Nebulizer] 1 each QID #1 each 04/21/21 predniSONE [Prednisone*] 40 mg PO DAILY #10 tab 04/21/21 Followup: NONE,NONE [Primary Care Provider] -
--- NOTE | 2021-06-10 14:49 | PN ---
Date of Progress Note: 06/08/2021 Mr. Hsu had came in with acute on chronic systolic congestive heart failure, altered mental statu s, hypertensive crisis. His last blood pressure was 151/97. He is in atrial fibrillation at a rate of 98. He takes amiodarone and Xarelto for that. His last creatinine is 2.03. White count was 15,0 00. Echocardiogram was reported earlier. His BNP was 22,280. He had a positive THC on his drug scr een. Extensive workup including a cardiac Doppler, MRI, and CT of the head have been negative. His mental status changes certainly may be secondary to drug abuse. I agree with his present regimen. I am concerned about his beta-mariaa. I am concerned about his hypertension. We could certainly inc rease his metoprolol, consider hydralazine, continue the amlodipine, consider ONELIA inhibitor. I will discuss the case further with admitting physician. I will follow him as needed. DYAN/PARTH Voice ID: [id number] Report ID: [id number]
--- NOTE | 2021-06-10 15:30 | P.PN ---
Subjective Date of Service: 06/10/21 Chief Complaint: Altered mental status Subjective: No new changes Physical Examination - Vital Signs Temperature: 98.9 F Blood Pressure: 134/74 Pulse: 108 Respirations: 24 Pulse Ox (%): 96 - Physical Exam General: Delirious HEENT: Atraumatic, Normocephalic Neck: Supple Respiratory: Diminished Cardiovascular: Regular rate/rhythm, Normal S1 S2 Gastrointestinal: Soft and benign Neurological: Abnormal affect Assessment And Plan - Plan V tach Acute metabolic encephalopathy - COVID encephalopathy Acute systolic CHF- TTE with LVEF of 35% with global hypokinesis Acute hypoxemic respiratory failure-resolved VIANNEY-possibly due to cardiorenal syndrome Accelerated HTN-possibly from agitation and encephalopathy NSTEMI COPD CKD stage III COVID 19 Hypernatremia Plan: His serum sodium is elevated at 148. His serum chloride is elevated at 112. we will continue routine monitoring of his labs and clinical parameters. his cr is stable at 2.0, we will dose meds for eGFR and avoid nephrotoxins. We will continue lasix dose for management of volume status. we will increase free water intake fr hypernatremia management. Physician Review: Patient Assessed, Agree with Above Assessment and Plan Physician Review Additional Text: Assessment Patient is a 70 year old male with a PMH of HTN, Type II diabetes mellitus, CHF and CAD S/P CABG. He was brought in for evaluation of wide complex tachycardia. 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 EMS arrived on site and cardioverted the patient before they brought him to the ER. His HR was apparently in the 140's. He was also given a bolus of amiodarone prior to arrival. His rate was controlled the first days of admission. Additional work up here shows COVID 19, NSTEMI, possibly decompensated CHF. He has been weaned off BIPAP and is currently on room air. His hospital course is complicated by acute delirium. He is very agitated. Brain MRI ruled out stroke. V tach Acute metabolic encephalopathy - COVID encephalopathy Acute systolic CHF- TTE with LVEF of 35% with global hypokinesis Acute hypoxemic respiratory failure-resolved VIANNEY-possibly due to cardiorenal syndrome Accelerated HTN-possibly from agitation and encephalopathy NSTEMI COPD CKD stage III COVID 19 PLAN: Continue IV thiamine PRN haldol placed for agitations. Restraint order placed Neurology consulted for unexplained encephalopathy Continue lasix IV 40 mg daily. Nephrology adjusting dosage Monitor I/O Very hypertensive. PO and PRN BP meds on board Amiodarone for afib Continue ICU stay
--- NOTE | 2021-06-10 17:10 | CON ---
Date of Consultation: 06/07/2021 Reason For Consultation: Congestive heart failure. History Of Present Illness: Mr. Hsu is a 70-year-old. He is known to us from previous office vi sits and admissions. He had came in with really unknown complaint, mostly confusion. There was a po ssibility that the patient had ventricular tachycardia, but I do not have the rhythm, but apparently he was converted with 70 joules and given 150 mg of amiodarone because he had a wide-complex tachycar wolf. He was brought to the hospital after the called the ambulance because he was basically con fused. No cardiac symptoms reported by him or the family. Mr. Hsu was very difficult to get any history from. Allergies: NONE. Review of Systems: Negative. Social History: Negative. Family History: Noncontributory. Past Medical History: Includes CAD, CHF, chronic back pain, COPD, diabetes, hypertension, renal insu fficiency, pancreatitis, posttraumatic stress disorder, and malignant neoplasm of the epididymis. Medications: At home include inhalers, amiodarone, aspirin, bupropion, Lipitor, carvedilol, clopidog rel, Lasix 80 mg daily. He is on glipizide, losartan, metformin, prednisone, and Xarelto. Physical Examination: General: He was basically obtunded. Vital Signs: Otherwise, his vital signs were stable. He was in AFib at a rate of 90. He was afebri le. HEENT: Negative. Neck: Supple with no bruit. Laboratory Data: Chest x-ray was consistent with pneumonia versus pulmonary edema. EKG shows sinus tachycardia with a right bundle-branch block. Head CT showed chronic atrophy and ischemic changes. Chest CT was negative. Echocardiogram showed an ejection fraction of 35% to 40%. Carotid artery deepak wed [id number]-widjewog disease. No significant focal stenosis. Brain MRI was negative. Impression And Plan: 1.Chronic atrial fibrillation. He is in sinus rhythm now, but I would continue his amiodarone and X arelto. 2.Acute on chronic systolic congestive heart failure. He needs to be diuresed. 3.Hypertension. 4.Posttraumatic stress disorder. 5.Dyslipidemia. 6.Coronary artery disease, on aspirin and Plavix and beta-blockers. I would continue those medicati ons. 7.Altered mental status with very extensive negative workup. Consider neurological consultation. C onsider psychiatric consultation. No further cardiac workup recommended on my end. I will continue his present regimen as it is. DYAN/PARTH Voice ID: [id number] Report ID: [id number]
== END 2021-06-10 15:38 | disposition short-term general hospital (02) | DRG 177 ==
LOC: ER 19:53 → ERHOLD 06-07 00:28
PROVIDERS: ADMIT Internal Medicine; ATTEND Internal Medicine
PROC: 5A09457 Assistance with Respiratory Ventilation, 24-96 Consecutive Hours, Continuous Positive Airway Pressure (ICD-10-PCS; principal; 2021-06-07)
DX: U07.1 COVID-19 (principal); I21.4 Non-ST elevation (NSTEMI) myocardial infarction; J12.82 Pneumonia due to coronavirus disease 2019; J96.01 Acute respiratory failure with hypoxia; G93.41 Metabolic encephalopathy; I50.21 Acute systolic (congestive) heart failure; I13.0 Hypertensive heart and chronic kidney disease with heart failure and stage 1 through stage 4 chronic kidney disease, or unspecified chronic kidney disease; N17.9 Acute kidney failure, unspecified; I47.1 Supraventricular tachycardia; J44.1 Chronic obstructive pulmonary disease with (acute) exacerbation; I48.20 Chronic atrial fibrillation, unspecified; Z68.41 Body mass index [BMI] 40.0-44.9, adult; J44.0 Chronic obstructive pulmonary disease with (acute) lower respiratory infection; I16.9 Hypertensive crisis, unspecified; E87.0 Hyperosmolality and hypernatremia; N18.30 Chronic kidney disease, stage 3 unspecified; E11.22 Type 2 diabetes mellitus with diabetic chronic kidney disease; E66.01 Morbid (severe) obesity due to excess calories; F43.10 Post-traumatic stress disorder, unspecified; E78.5 Hyperlipidemia, unspecified; I25.10 Atherosclerotic heart disease of native coronary artery without angina pectoris; G47.33 Obstructive sleep apnea (adult) (pediatric); R77.8 Other specified abnormalities of plasma proteins; I25.2 Old myocardial infarction; Z79.82 Long term (current) use of aspirin; Z79.02 Long term (current) use of antithrombotics/antiplatelets; Z79.84 Long term (current) use of oral hypoglycemic drugs; Z79.52 Long term (current) use of systemic steroids; Z79.01 Long term (current) use of anticoagulants; Z79.899 Other long term (current) drug therapy; Z95.5 Presence of coronary angioplasty implant and graft
CPT/HCPCS: 0240U; 36415; 51702; 70450; 70551; 71045; 71250; 76770; 80048; 80053; 80061; 80076; 80307; 81003; 81015; 82140; 82805; 82947; 83605; 83735; 83880; 84145; 84439; 84443; 84484; 85025; 85610; 86140; 86592; 87040; 93005; 93306; 93880; 94660; 94760; 99285; J1630; J1940; J2920; J2930; J3411; J3480; J3486; J7040

== ENCOUNTER 2021-12-03 05:52 | Inpatient (IN) | payer OTHER ==
[2021-12-03] MEDS ORDERED: METOPROLOL TARTRATE 5 MG/5 ML INJ IV ONE (06:49)
[2021-12-03 06:58] LABS: Absolute Lymphocytes (CBC) 0.5 K/uL (0.7-4.9); Hematocrit 28.6 % (39.6-49.0); Lymphocytes % 4.9 % (15.3-44.8); MCV 84.3 fL (80-100); RBC Red Blood Cell Count 3.39 M/uL (4.33-5.43)
[2021-12-03 07:08] LABS: Potassium 3.3 mmol/L (3.5-5.1)
[2021-12-03 07:10] LABS: Troponin High Sensitivity 61.2 pg/mL (<58.9)
--- NOTE | 2021-12-03 07:27 | RAD REPORT ---
EXAM DESCRIPTION: RAD - Chest Single View - 12/03/2021 6:59 am CLINICAL HISTORY: PALPITATIONS COMPARISON: Chest Single View dated 06/09/2021; Chest Single View dated 06/08/2021; Chest Single View da oziel 06/06/2021; Chest Single View dated 04/21/2021 FINDINGS: Lines: None. Lungs: No consolidation or edema. Pleural: No significant pleural effusions or pneumothorax. Cardiac: Mild cardiomegaly. Sternotomy. Bones: No acute fractures. Other: IMPRESSION: No acute cardiopulmonary disease.
--- NOTE | 2021-12-03 07:46 | ER ---
Nurse's Notes [facility] Name: Ludwin Hsu Age: 71 yrs Sex: Male : 1950 Arrival Date: 12/03/2021 Time: 05:54 Bed 6 Private MD: Diagnosis: Anemia, unspecified;Unspecified atrial fibrillation;Shortness of breath;Heart failure, unspecified Presentation: 12/03 05:54 Chief complaint: EMS states: Toned out for tachycardia, pt states had trouble sleeping ll3 because of SOB and feeling like heat was racing, EMS states O2 was 89-90 on room air. Coronavirus screen: Vaccine status: Patient reports receiving the 2nd dose of the covid vaccine. shortness of breath. Ebola Screen: No symptoms or risks identified at this time. Initial Sepsis Screen: Does the patient meet any 2 criteria? No. Patient's initial sepsis screen is negative. Does the patient have a suspected source of infection? No. Patient's initial sepsis screen is negative. Risk Assessment: Do you want to hurt yourself or someone else? Patient reports no desire to harm self or others. Onset of symptoms was December 03, 2021. Care prior to arrival: None. 05:54 Method Of Arrival: EMS: [facility] ll3 05:54 Acuity: NGUYEN 3 ll3 Triage Assessment: 05:57 General: Appears uncomfortable, Behavior is calm, cooperative. Pain: Complains of pain ll3 in back Pain began years ago. Neuro: Level of Consciousness is awake, alert, obeys commands, Oriented to person, place, time, situation. Cardiovascular: Patient's skin is warm and dry. Respiratory: Respiratory effort is labored, Respiratory pattern is regular, symmetrical. Derm: Skin is pink, warm \T\ dry. Historical: - Allergies: 05:57 NKA; ll3 - Home Meds: 07:05 albuterol sulfate 90 mcg/actuation Inhl HFAA 1 puff every 6 hours [Active]; amiodarone gupta 200 mg Oral tab [Active]; aspirin 81 mg Oral chew 1 tab once daily [Active]; atorvastatin 40 mg Oral tab 1 tab once daily [Active]; bupropion HCl 100 mg Oral tab daily [Active]; carvedilol 25 mg Oral tab 1 tab 2 times per day [Active]; clopidogrel 75 mg Oral tab 1 tab once daily [Active]; furosemide 80 mg Oral tab 1 tab once daily [Active]; gabapentin 400 mg Oral cap 1 cap 3 times per day [Active]; glipizide 5 mg Oral tr24 2 tabs once daily [Active]; losartan 50 mg Oral tab 1 tab once daily [Active]; metformin 1,000 mg Oral tab 1 tab 2 times per day [Active]; Prednisone Oral [Active]; Xarelto 20 mg Oral tab 1 tab once daily [Active]; - PMHx: 05:57 arteriosclerosis; CHF; chronic back pain; Myocardial infarction; Pancreatitis; PTSD; ll3 Hypertension; COPD; Diabetes - NIDDM; tinnitus; malignant neoplasm of epidimyis; kidney disease; - Immunization history:: Client reports receiving the 2nd dose of the Covid vaccine. - Social history:: Smoking status: Patient reports the use of cigarette tobacco products, denies chronic smoking, but will smoke occasionally. Screenin:04 Abuse screen: Denies threats or abuse. Denies injuries from another. Nutritional gupta screening: No deficits noted. Tuberculosis screening: No symptoms or risk factors identified. Fall Risk None identified. Assessment: 05:59 General: See triage assessment. ll3 Vital Signs: 05:54 BP 125 / 76; Pulse 132; Resp 20; Temp 97.9(TE); Pulse Ox 90% on R/A; Weight 104.33 kg ll3 (R); Height 6 ft. 0 in. (182.88 cm) (R); 07:06 BP 144 / 78; Pulse 96; Resp 18; Pulse Ox 94% on R/A; gupta 05:54 Body Mass Index 31.19 (104.33 kg, 182.88 cm) ll3 ED Course: 05:54 Patient arrived in ED. ll3 05:57 Triage completed. ll3 05:57 Arm band placed on Patient placed in an exam room, on a stretcher, on pulse oximetry. ll3 06:04 Juan José Henley MD is Attending Physician. kdr 06:26 Kaylan Carroll, STEPHEN is Primary Nurse. ll3 06:41 Initial lab(s) drawn, by me, sent to lab. Inserted saline lock: 22 gauge in right tw5 wrist, using aseptic technique. Blood collected. 07:00 XRAY Chest (1 view) In Process Unspecified. EDMS 07:05 Notified ED physician of a critical lab result(s). d-dimer 1911. tw5 07:05 No provider procedures requiring assistance completed. Inserted saline lock:. gupta 07:06 Patient has correct armband on for positive identification. Bed in low position. gupta 07:10 Notified ED physician of a critical lab result(s). Troponin 61.2. tw5 07:41 Topher Yuen MD is Hospitalizing Provider. kdr 08:07 CT Chest For PE Angio In Process Unspecified. EDMS 08:48 SARS RAPID Sent. gupta 11:58 Inserted saline lock:. gupta 12:16 Patient admitted, IV remains in place. gupta Administered Medications: 06:44 Drug: Lopressor (metoprolol) 5 mg Route: IVP; Site: right wrist; ll3 08:48 Follow up: Response: No adverse reaction gupta Medication: 07:06 VIS not applicable for this client. gupta Outcome: 07:45 Decision to Hospitalize by Provider. kdr 12:15 Admitted to Med/surg accompanied by tech, room 206. gupta 12:15 Condition: good 12:15 Instructed on the need for admit. 12:16 Patient left the ED. gupta Signatures: Dispatcher [employer] EDMS Juan José Henley MD MD kdr Wood, Tiffany tw5 Kaylan Carroll, RN RN 3 Liza Schwartz RN RN
--- NOTE | 2021-12-03 07:46 | EDPHYS ---
Physician Documentation [facility] Name: Ludwin Hsu Age: 71 yrs Sex: Male : 1950 Arrival Date: 12/03/2021 Time: 05:54 Bed 6 Private MD: ED Physician Juan José Henley HPI: 12/03 06:11 This 71 yrs old Male presents to ER via EMS with complaints of palpitations and SOB. kdr 06:11 half-way staff took the patient's vital signs, they noted him to be tachycardic. kdr Patient stated that he felt he had palpitations but otherwise did not feel poorly.. Onset: The symptoms/episode began/occurred just prior to arrival. Severity of symptoms: At their worst the symptoms were very mild mild in the emergency department the symptoms are unchanged. It is unknown whether or not the patient has had similar symptoms in the past. The patient has not recently seen a physician. Historical: - Allergies: 05:57 NKA; ll3 - Home Meds: 07:05 albuterol sulfate 90 mcg/actuation Inhl HFAA 1 puff every 6 hours [Active]; amiodarone gupta 200 mg Oral tab [Active]; aspirin 81 mg Oral chew 1 tab once daily [Active]; atorvastatin 40 mg Oral tab 1 tab once daily [Active]; bupropion HCl 100 mg Oral tab daily [Active]; carvedilol 25 mg Oral tab 1 tab 2 times per day [Active]; clopidogrel 75 mg Oral tab 1 tab once daily [Active]; furosemide 80 mg Oral tab 1 tab once daily [Active]; gabapentin 400 mg Oral cap 1 cap 3 times per day [Active]; glipizide 5 mg Oral tr24 2 tabs once daily [Active]; losartan 50 mg Oral tab 1 tab once daily [Active]; metformin 1,000 mg Oral tab 1 tab 2 times per day [Active]; Prednisone Oral [Active]; Xarelto 20 mg Oral tab 1 tab once daily [Active]; - PMHx: 05:57 arteriosclerosis; CHF; chronic back pain; Myocardial infarction; Pancreatitis; PTSD; ll3 Hypertension; COPD; Diabetes - NIDDM; tinnitus; malignant neoplasm of epidimyis; kidney disease; - Immunization history:: Client reports receiving the 2nd dose of the Covid vaccine. - Social history:: Smoking status: Patient reports the use of cigarette tobacco products, denies chronic smoking, but will smoke occasionally. ROS: 06:11 Constitutional: Patient is a poor historian generally does not want to be in the ED kdr today. Negative for fever, chills, and weight loss, Eyes: Negative for injury, pain, redness, and discharge. 06:11 Cardiovascular: Positive for palpitations, Negative for chest pain, edema, orthopnea. 06:11 Respiratory: Positive for dyspnea on exertion, shortness of breath, wheezing. Exam: 06:11 Constitutional: This is a well developed, well nourished patient who is awake, alert, kdr and in no acute distress. Head/Face: Normocephalic, atraumatic. Eyes: Pupils equal round and reactive to light, extra-ocular motions intact. Lids and lashes normal. Conjunctiva and sclera are non-icteric and not injected. Cornea within normal limits. Periorbital areas with no swelling, redness, or edema. Neck: Trachea midline, no thyromegaly or masses palpated, and no cervical lymphadenopathy. Supple, full range of motion without nuchal rigidity, or vertebral point tenderness. No Meningismus. Chest/axilla: Normal chest wall appearance and motion. Nontender with no deformity. No lesions are appreciated. Abdomen/GI: Soft, non-tender, with normal bowel sounds. No distension or tympany. No guarding or rebound. No evidence of tenderness throughout. Back: No spinal tenderness. No costovertebral tenderness. Full range of motion. Skin: Warm, dry with normal turgor. Normal color with no rashes, no lesions, and no evidence of cellulitis. MS/ Extremity: Pulses equal, no cyanosis. Neurovascular intact. Full, normal range of motion. Neuro: Awake and alert, GCS 15, oriented to person, place, time, and situation. Cranial nerves II-XII grossly intact. Motor strength 5/5 in all extremities. Sensory grossly intact. Cerebellar exam normal. Normal gait. Psych: Awake, alert, with orientation to person, place and time. Behavior, mood, and affect are within normal limits. 06:11 Cardiovascular: Rate: tachycardic, Rhythm: regular, Pulses: 07:26 ECG was reviewed by the Attending Physician. kdr Vital Signs: 05:54 BP 125 / 76; Pulse 132; Resp 20; Temp 97.9(TE); Pulse Ox 90% on R/A; Weight 104.33 kg ll3 (R); Height 6 ft. 0 in. (182.88 cm) (R); 07:06 BP 144 / 78; Pulse 96; Resp 18; Pulse Ox 94% on R/A; gupta 05:54 Body Mass Index 31.19 (104.33 kg, 182.88 cm) ll3 MDM: 06:11 Data reviewed: vital signs, nurses notes, lab test result(s), EKG, radiologic studies. kdr Counseling: I had a detailed discussion with the patient and/or guardian regarding: the historical points, exam findings, and any diagnostic results supporting the discharge/admit diagnosis, lab results, radiology results. 07:32 Patient medically screened. sd2 12/03 06:11 Order name: Basic Metabolic Panel; Complete Time: 07: kdr 12/03 06:11 Order name: CBC with Diff; Complete Time: 07: kdr 12/03 06:11 Order name: D-Dimer; Complete Time: 07: kdr 12/03 06:11 Order name: NT PRO-BNP; Complete Time: 07: kdr 12/03 06:11 Order name: Troponin HS; Complete Time: 07: kdr 12/03 07:52 Order name: SARS RAPID ss 12/03 10:46 Order name: CBC with Automated Diff EDMS 12/03 10:46 Order name: CBC with Automated Diff EDMS 12/03 10:46 Order name: Comprehensive Metabolic Panel EDFL 12/03 10:46 Order name: Comprehensive Metabolic Panel EDFL 12/03 10:46 Order name: Magnesium EDMS 12/03 10:47 Order name: Magnesium EDMS 12/03 10:47 Order name: NT PRO-BNP EDMS 12/03 10:47 Order name: NT PRO-BNP EDMS 12/03 06:11 Order name: XRAY Chest (1 view); Complete Time: 07: kdr 12/03 06:11 Order name: EKG; Complete Time: 06:14 kdr 12/03 06:11 Order name: Cardiac monitoring; Complete Time: 06:15 kdr 12/03 06:11 Order name: EKG - Nurse/Tech; Complete Time: 06:15 kdr 12/03 06:11 Order name: IV Saline Lock; Complete Time: 06:54 kdr 12/03 06:11 Order name: Labs collected and sent; Complete Time: 06:54 kdr 12/03 07:36 Order name: CT Chest For PE Angio; Complete Time: 08:42 kdr 12/03 10:46 Order name: CONS Physician Consult EDFL 12/03 10:46 Order name: Heart Healthy EDFL 12/03 10:46 Order name: Echo with Doppler EDFL 12/03 10:47 Order name: Troponin High Sensitivity EDFL 12/03 10:47 Order name: Troponin High Sensitivity EDFL EC: Rate is 125 beats/min. Rhythm is irregularly irregular, A fib with No ectopy. QRS [place] kdr is Normal. MA interval is normal. QRS interval is normal. QT interval is normal. Clinical impression: Atrial Fibrillation. Administered Medications: 06:44 Drug: Lopressor (metoprolol) 5 mg Route: IVP; Site: right wrist; ll3 08:48 Follow up: Response: No adverse reaction gupta Disposition Summary: 12/03/21 07:45 Hospitalization Ordered Hospitalization Status: Observation kdr Provider: Topher Yuen kdr Location: Telemetry/MedSurg (observation) kdr Condition: Fair kdr Problem: an acute exacerbation kdr Symptoms: have improved kdr Bed/Room Type: Standard kdr Room Assignment: 206(12/03/21 11:26) dw Diagnosis - Anemia, unspecified kdr - Unspecified atrial fibrillation kdr - Shortness of breath kdr - Heart failure, unspecified kdr Forms: - Medication Reconciliation Form kdr - SBAR form kdr Signatures: Dispatcher [employer] [facility] Shira Altman RN RN dw Rittger, Kevin, MD MD kdr Loubet, Lynsea, RN RN ll3 Liza Schwartz RN RN ha Dunlop, Stephanie, MD MD sd2 Corrections: (The following items were deleted from the chart) 11: 07:45 kdr dw
--- NOTE | 2021-12-03 08:17 | RAD REPORT ---
EXAM DESCRIPTION: CT - Chest For Pe Angio - 12/03/2021 8:05 am CLINICAL HISTORY: SOB, A-fib COMPARISON: Thorax Wo Con dated 06/07/2021; Chest For Pe Angio dated 12/29/2020; Chest For Pe Angio diane ed 08/11/2020; Ct Low Dose Chest Screening dated 04/12/2017; Chest Single View dated 12/03/2021 TECHNIQUE: Dynamically enhanced axial 3 mm thick images of the chest were obtained during administra tion of <100> mL Isovue 370 IV contrast. Coronal and oblique reconstruction images were generated and reviewed. Exam utilizes a protocol for optimal evaluation of pulmonary arterial tree. Maximum intensity projections 3D imaging was utilized All CT scans are performed using dose optimization technique as appropriate and may include automated exposure control or mA/KV adjustment according to patient size. FINDINGS: Chest Wall: No suspicious thyroid nodules or pathologic lymphadenopathy. Lungs: Emphysema. Interlobular septal thickening is noted. Pleura: Small to moderate effusions bilaterally. Mediastinum/devin: No pathologic lymphadenopathy. Pulmonary arteries/Aorta: No filling defect identified. No aortic aneurysm. Heart: No significant pericardial effusion. Mild cardiomegaly. Multi-vessel coronary artery disease. Upper abdomen: No acute abnormality. Bones: No acute abnormality. Sternotomy IMPRESSION: Negative for pulmonary embolism. Interstitial edema with small to moderate bilateral ple ural effusions.
[2021-12-03 09:06] LABS: SARS-CoV-2 Antigen Rapid Res Negative (Negative)
[2021-12-03] MEDS ORDERED: ACETAMINOPHEN 500 MG TAB PO PRN (10:41)
[2021-12-03] MEDS ORDERED: ONDANSETRON 4 MG/2 ML VIAL IV PRN (10:41)
[2021-12-03] MEDS: INSULIN -REGULAR HUMAN 50 UNIT/0.5 ML ML SQ SCH ×3 (11:30→21:00)
--- NOTE | 2021-12-03 14:14 | P.HP ---
Certification for Inpatient Patient admitted to: Inpatient With expected LOS: >2 Midnights Patient will require the following post-hospital care: None Practitioner: I am a practitioner with admitting privileges, knowledge of patient current condition, hospital course, and medical plan of care. Services: Services provided to patient in accordance with Admission requirements found in Title 42 Section 412.3 of the Code of Federal Regulations Patient History Date of Service: 12/03/21 Reason for admission: Atrial fibrillation with rapid ventricular response History of Present Illness: Patient is a 71-year-old gentleman who comes into the hospital with shortness of breath and tachycardia. Patient was recently discharged from the hospital with COVID pneumonia and transferred to [facility] according to the patient. He was intubated while in the hospital. At the [facility] he has been doing better and his strength is improving. He has been ambulating with physical therapy. He came into the emergency room because he was short of breath and having palpitations. In the ER he was found to have atrial fibrillation with rapid ventricular response. He was given Cardizem and his heart rate has been controlled. He will be admitted to the hospital for further treatment. Echocardiogram in June 2021 revealed an ejection fraction of 35- 40%. Patient will be admitted to the hospital for further evaluation. Cardiology will be consulted. Allergies No Known Allergies Allergy (Verified 01/13/21 22:24) Home Medications: Gabapentin [Neurontin*] 3 cap PO TID 12/02/16 Aspirin 81 mg PO DAILY 11/10/17 glipiZIDE [Glucotrol] 10 mg PO DAILY 11/10/17 Metformin ER [Glucophage ER*] 1,000 mg PO BID 02/17/18 Aripiprazole [Abilify] 30 mg PO DAILY 08/28/20 Atorvastatin Calcium [Lipitor] 40 mg PO BEDTIME 08/28/20 Losartan Potassium [Cozaar] 100 mg PO DAILY 08/28/20 Rivaroxaban [Xarelto*] 20 mg PO DAILY 6PM 08/28/20 Albuterol Neb [Proventil 0.083% Neb Soln] 2.5 mg NEB [id number] PRN #120 amp 08/29/20 Budesonide/Formoterol Fumarate [Symbicort 160-4.5 Mcg Inhaler] 1 puff IH DAILY PRN 09/17/20 Spironolactone [Aldactone] 25 mg PO DAILY #30 tablet 05/21/21 Amiodarone HCl 100 mg PO DAILY 30 Days #30 tablet 01/14/21 Furosemide [Lasix*] 40 mg PO BID #60 tab 01/14/21 Albuterol Neb [Proventil 0.083% Neb Soln] 2.5 mg NEB Q6HP PRN #120 amp 04/21/21 Amlodipine [Norvasc*] 10 mg PO DAILY #30 tab 04/21/21 Ipratropium Neb [Atrovent*] 0.5 mg NEB [id number] PRN #120 amp 04/21/21 Nebulizer [Aeroneb Go Nebulizer] 1 each QID #1 each 04/21/21 predniSONE [Prednisone*] 40 mg PO DAILY #10 tab 04/21/21 - Past Medical/Surgical History Diabetic: Yes -: Hypertension -: Diabetes mellitus type 2 -: Posttraumatic stress disorder -: Anxiety -: Hepatitis-C -: Hyperlipidemia -: CAD, stent placement x2, atrial fibrillation, chronic diastolic CHF -: Obstructive sleep apnea -: Obesity -: Diabetic neuropathy -: History pancreatitis -: COPD, tobacco abuse -: 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 - Family History Father Medical History: Other (see notes) Notes: CHF Mother Medical History: Cancer Notes: breast cancer Sister Medical History: Cancer Notes: colon cancer Brother Medical History: Cancer Notes: throat cancer - Social History Smoking Status: Former smoker Alcohol use: No CD- Drugs: No Caffeine use: Yes Review of Systems 10-point ROS is otherwise unremarkable Physical Examination - Vital Signs Temperature: 97.9 F Blood Pressure: 144/78 Pulse: 96 Respirations: 18 Pulse Ox (%): 91 - Physical Exam General: Alert, In no apparent distress, Oriented x3 HEENT: Atraumatic, PERRLA, Mucous membr. moist/pink, EOMI, Sclerae nonicteric Neck: Supple, 2+ carotid pulse no bruit, No LAD, Without JVD or thyroid abnormality Respiratory: Clear to auscultation bilaterally, Normal air movement Cardiovascular: Normal S1 S2, Irregular heart rate/rhythm Gastrointestinal: Normal bowel sounds, Soft and benign, Non-distended, No tenderness Musculoskeletal: No clubbing, No swelling, No tenderness Integumentary: No rashes Neurological: Normal gait, Normal speech, Normal strength at 5/5 x4 extr, Normal tone, Normal affect Lymphatics: No axilla or inguinal lymphadenopathy - Studies Laboratory Data (last 24 hrs) 12/03/21 06:33: WBC 9.6, Hgb 9.3 L, Hct 28.6 L, Plt Count 232 12/03/21 06:33: Sodium 142, Potassium 3.3 L, BUN 20 H, Creatinine 1.14, Glucose 188 H Assessment & Plan - Problems (Diagnosis) (1) [id number] condition Current Visit: Yes Status: Acute (2) Acute systolic CHF (congestive heart failure) Onset Date: 02/18/18 Current Visit: No Status: Acute (3) Afib Current Visit: No Status: Chronic Qualifiers: Atrial fibrillation type: paroxysmal Qualified Code(s): I48.0 - Paroxysmal atrial fibrillation (4) COPD (chronic obstructive pulmonary disease) Current Visit: No Status: Chronic Qualifiers: COPD type: chronic bronchitis Chronic bronchitis type: unspecified Qualified Code(s): J42 - Unspecified chronic bronchitis (5) Coronary artery disease Current Visit: No Status: Chronic Qualifiers: Coronary Disease-Associated Artery/Lesion type: bypass graft [place] vs. transplanted heart: [place] heart Associated angina: without angina Qualified Code(s): I25.810 - Atherosclerosis of coronary artery bypass graft(s) without angina pectoris (6) Diabetes mellitus Onset Date: 12/03/16 Current Visit: No Status: Chronic (7) GERD (gastroesophageal reflux disease) Onset Date: 12/03/16 Current Visit: No Status: Chronic Qualifiers: Esophagitis presence: without esophagitis Qualified Code(s): K21.9 - G diane-esophageal reflux disease without esophagitis (8) Morbid obesity Onset Date: 05/07/17 Current Visit: No Status: Chronic (9) Obstructive sleep apnea Onset Date: 11/11/17 Current Visit: No Status: Chronic - Plan 1. Will continue medications for rate control and anticoagulation 2. Continue with strict blood pressure control 3. Echocardiogram 4. Cardiology consultation 5. Repeat chest x-ray 6. Strict blood pressure and blood sugar control 7. resume cardiac meds 8. GI and DVT prophylaxis Discharge Plan: Correction Plan to discharge in: Greater than 2 days - Advance Directives Does patient have a Living Will: No Does patient have a Durable POA for Healthcare: No - Code Status/Comfort Care Code Status Assessed: Yes Code Status: Full Code Critical Care: No Time Spent Managing PTS Care (In Minutes): 45
--- NOTE | 2021-12-03 16:46 | CON ---
Date of Consultation: 12/03/2021 Reason For Consultation: AFib and elevated troponin. History Of Present Illness: This is a 71-year-old male with history of coronary artery disease, stat us post 3-vessel CABG 4 years ago, history of cardiac stents, history of diabetes, COPD, and atrial f ibrillation, who presented to the emergency room due to palpitations, found to be in atrial fibrillat ion with rapid ventricular response, heart rate in the 130s. At the present time, his heart rate is down and he is feeling better. Denies having any chest pain, but has some shortness of breath that i s chronic. Past Medical History: As outlined above in the HPI. Medications: Refer to reconciliation sheet for detailed list. Allergies: NO KNOWN DRUG ALLERGIES. Family History: No premature coronary artery disease or cancer. Social History: Does not smoke or drink. Does not use any drugs. Review of Systems: All systems reviewed and they were negative except for what mentioned in the HPI. Physical Examination: Vital Signs: Reviewed. Head and Neck: Pupils are equal, reactive to light. Intact eye movements. No JVD. No cervical lym phadenopathy. Neck is supple. Thyroid is not enlarged. Lungs: Decreased breathing sounds with wheezing bilaterally. No accessory muscle use or muscle retr action. Heart: Irregularly irregular. No extra sounds. Abdomen: Soft, nontender. Bowel sounds positive. No organomegaly. No masses or hernia. No rigidi ty or rebound. Extremities: No clubbing or cyanosis. Intact pulses. Skin: No rash. No nodules. Neurologic: Alert, awake, oriented x3. No acute focal deficits appreciated. Investigations: First troponin was 61 and then 80. Creatinine is 1.14. Hemoglobin is 9.3, white bl ood cell count is 9.6. Assessment And Recommendations: 1.Atrial fibrillation with rapid ventricular response. Start sotalol 80 mg q.12 hours and also use metoprolol IV 5 mg every 1-2 hours as needed for rate control. The patient is on Xarelto at home, wh ich to be continued. 2.Elevated troponin. It is borderline elevated. Has no chest pain. This is likely due to demand i schemia. We will obtain an echocardiogram tomorrow and we will reassess. SR/MODL Voice ID: [id number] Report ID: [id number]
[2021-12-03] MEDS: FUROSEMIDE 40 MG/4 ML VIAL IV SCH (16:58)
[2021-12-03] MEDS: METOPROLOL TARTRATE 5 MG/5 ML INJ IV SCH ×3 (18:25→18:58)
[2021-12-03] MEDS ORDERED: SOTALOL HCL 80 MG TAB PO ONE (18:30)
[2021-12-03] MEDS ORDERED: METOPROLOL TAR 50 MG TAB PO SCH (21:00)
[2021-12-03] MEDS: POTASSIUM 25 MEQ EFFERV TAB PO SCH (21:26)
[2021-12-03] MEDS: ALPRAZOLAM 0.25 MG TABLET PO PRN (21:58)
[2021-12-04] MEDS ORDERED: METOPROLOL TARTRATE 5 MG/5 ML INJ IV STA (03:12)
[2021-12-04] MEDS ORDERED: ALBUTEROL 2.5 MG/3 ML NEB SOL NEB PRN ×2 (03:13→03:20)
[2021-12-04 03:41] LABS: Arterial Blood Carboxyhemoglob 1.6 % (0-1.5); Blood Gas Oxyhemoglobin 88.6 % (94-97)
[2021-12-04 04:57] LABS: Absolute Lymphocytes (CBC) 0.8 K/uL (0.7-4.9); Hematocrit 29.2 % (39.6-49.0); Lymphocytes % 11.1 % (15.3-44.8); MCV 82.4 fL (80-100); MPV 7.8 fL (7.6-11.3); RBC Red Blood Cell Count 3.54 M/uL (4.33-5.43)
[2021-12-04 05:15] LABS: Albumin 3.1 g/dL (3.4-5.0); Bilirubin Total 0.7 mg/dL (0.2-1.0); Magnesium 1.9 mg/dL (1.8-2.4); Phosphorus 2.6 mg/dL (2.5-4.9); Potassium 3.2 mmol/L (3.5-5.1); Protein, Total 6.7 g/dL (6.4-8.2)
[2021-12-04 05:35] LABS: Ferritin 184.9 ng/mL (26-388); Folic Acid, (Folate) 16.1 ng/mL (3.1-17.5); Thyroid Stimulating Hormone 0.576 uIU/mL (0.360-3.740)
[2021-12-04] MEDS: SOTALOL HCL 80 MG TAB PO SCH ×2 (06:12→17:11)
[2021-12-04] MEDS: POTASSIUM 25 MEQ EFFERV TAB PO SCH ×2 (06:31→20:01)
[2021-12-04] MEDS: INSULIN -REGULAR HUMAN 50 UNIT/0.5 ML ML SQ SCH ×4 (07:30→21:00)
[2021-12-04] MEDS ORDERED: POTASSIUM 25 MEQ EFFERV TAB PO ONE (07:30)
[2021-12-04] MEDS: FUROSEMIDE 40 MG/4 ML VIAL IV SCH ×2 (09:00→17:12)
[2021-12-04] MEDS ORDERED: ENOXAPARIN 40 MG/0.4 ML SQ SCH (09:00)
--- NOTE | 2021-12-04 12:19 | P.PN ---
Subjective Date of Service: 12/04/21 Chief Complaint: Atrial fibrillation with rapid ventricular response Subjective: Improving No acute events overnight. He reports that he feels that his breathing is slightly improved. He states that his symptoms are worse with lying flat and improve with sitting upright. Review of Systems 10-point ROS is otherwise unremarkable Respiratory: Cough, Shortness of Breath Cardiovascular: Palpitations, Orthopnea, Edema Physical Examination - Vital Signs Temperature: 97.0 F Blood Pressure: 105/87 Pulse: 111 Respirations: 14 Pulse Ox (%): 97 - Physical Exam General: Alert, In no apparent distress, Oriented x3 HEENT: Atraumatic, PERRLA, Mucous membr. moist/pink, EOMI, Sclerae nonicteric Neck: Supple, JVD not distended Respiratory: Normal air movement, Crackles/rales (bibasilar) Cardiovascular: Regular rate/rhythm, Normal S1 S2, No gallops, No rubs, No murmurs, Edema (2+ bilateral lower extremity) Gastrointestinal: Normal bowel sounds, Soft and benign, Non-distended, No tenderness, No rebound, No guarding Musculoskeletal: No clubbing Integumentary: No rashes Neurological: Normal speech, Normal affect Assessment And Plan - Plan # Acute on Chronic Decompensated Systolic Congestive Heart Failure with Reduced Ejection Fraction (LVEF 35-40%) - Consult Cardiology - recommendations appreciated - Ordered transthoracic echocardiogram - Last TTE (06/07/2021) = "moderate global hypokinesis. ejection fraction 35-40%. left ventricular hypertrophy. mild tricuspid regurgitation. aortic sclerosis. mitral annular calcification." - Diuresis with IV furosemide for today - Resume home medications once verified - Daily weights - Strict I/O - Cardiac diet, 1.5 L fluid restriction, 2 g Na restriction # Atrial Fibrillation with Rapid Ventricular Response His [id number] = 5 (CHF=1, HTN=1, DM=1, CAD=1, Age 65-74=1), which warrants anticoagulation. - Cardiology consulted - recommendations appreciated - Continue sotalol and rivaroxaban - Currently rate-controlled # Coronary Artery Disease s/p CABG # Hypertension # Hyperlipidemia - Resume home medications once verified # Chronic Obstructive Pulmonary Disease # Recent COVID-19 Infection - Does not appear to have acute COPD exacerbation - Resume home medications once verified # Type II Diabetes Mellitus - Correction scale insulin - Resume home medications once verified # Gastroesophageal Reflux Disease - PRN PPI # Obstructive Sleep Apnea - May use home CPAP Kendrick Fierro M.D. Discharge Plan: Home Plan to discharge in: 48 Hours
--- NOTE | 2021-12-04 12:23 | EKG ---
Test Date: 2021-12-03 Test Time: 06:07:30 Furnace Setter: KELSEY MEASUREMENT RESULTS: Intervals: Rate: 125 [place]: QRSD: 130 QT: 360 QTc: 519 [place]: P: [place]: QRS: -65 T: 75 INTERPRETIVE STATEMENTS: Atrial fibrillation with rapid ventricular response Left axis deviation Nonspecific intraventricular block Cannot rule out Septal infarct, age undetermined Abnormal ECG Compared to ECG 06/06/2021 20:07:52 Myocardial infarct finding now present Sinus tachycardia no longer present Right bundle-branch block no longer present Electronically Signed On 12-04-21 12:21:00 CDT by Raffi Conte
--- NOTE | 2021-12-04 12:54 | RAD REPORT ---
EXAM DESCRIPTION: RAD - Chest Single View - 12/04/2021 4:00 am CLINICAL HISTORY: SHOB, hypoxia COMPARISON: 12/03/2021 FINDINGS: Single frontal radiograph view of the chest. Cardiomediastinal silhouette: Prior median sternotomy. Cardiomegaly. Leads overlie the chest. Lungs: Interval increase in bilateral interstitial opacities. Low lung volumes. No pneumothorax. Bones: Degenerative change of the spine. Upper abdomen: No abnormality identified. IMPRESSION: 1. Interval increase in bilateral interstitial opacities concerning for pulmonary edema. Electronically signed by: Rod Morin 12/04/2021 4:19 AM CDT Due to temporary technical issues with the PACS/Fluency reporting system, reports are being signed by the in house radiologists without review as a courtesy to insure prompt reporting. The interpreting radiologist is fully responsible for the content of the report.
--- NOTE | 2021-12-04 14:51 | ECHO ---
HEIGHT: 6 ft 0 in WEIGHT: 230 lb 0 oz DATE OF STUDY: 12/04/[address]: Topher Yuen MD 2-DIMENSIONAL: YES M.MODE: YES DOPPLER: YES COLOR FLOW: YES TDS: NO PORTABLE: YES DEFINITY: NO BUBBLE STUDY: NO DIAGNOSIS: CONGESTIVE HEART FAILURE CARDIAC HISTORY: CATHERIZATION: YES SURGERY: YES PROSTHETIC VALVE: NO PACEMAKER: NO MEASUREMENTS (cm) DIASTOLIC (NORMALS) SYSTOLIC (NORMALS) IVSd 1.4 (0.6-1.2) LA Diam 4.5 (1.9-4.0) LVEF 35-40% LVIDd 5.0 (3.5-5.7) LVIDs 3.9 (2.0-3.5) %FS 22% LVPWd 1.4 (0.6-1.2) Ao Diam 2.9 (2.0-3.7) 2 DIMENSIONAL ASSESSMENT: RIGHT ATRIUM: NORMAL LEFT ATRIUM: ENLARGED RIGHT VENTRICLE: NORMAL LEFT VENTRICLE: DEPRESSED FUNCTION TRICUSPID VALVE: MITRAL VALVE: PULMONIC VALVE: AORTIC VALVE: CALCIFIED VALVE PERICARDIAL EFFUSION: NONE AORTIC ROOT: NORMAL LEFT VENTRICULAR WALL MOTION: ANTEROSEPTAL APICAL HYPOKINESIS. DOPPLER/COLOR FLOW: SEE BELOW. COMMENTS: MODERATELY DEPRESSED LEFT VENTRICULAR EJECTION FRACTION 35-40%. WALL MOTION ABOVE. MILD TRICUSPID, MITRAL AND PULMONARY REGURGITATION. LEFT ATRIAL ENLARGEMENT. MODERATE DIASTOLIC DYSFUNCTION. TECHNOLOGIST: Roni ZHENG
[2021-12-04 16:05] VITALS: BMI 4491.3
[2021-12-04] MEDS ORDERED: RIVAROXABAN 20 MG TABLET PO SCH (17:00)
--- NOTE | 2021-12-04 17:35 | PN ---
Date of Progress Note: 12/04/2021 Subjective: Seen by bedside. He is doing better. Does not have any resting chest pain or shortness of breath. Had an echocardiogram. His ejection fraction is about 35%. The patient is known to hav e history of coronary artery disease and CHF. Review of Systems: No chest pain or resting shortness of breath. No nausea, vomiting, diarrhea. All other systems revi ewed and are negative. Physical Examination: Vital Signs: His temperature is 97.2, heart rate is 111, breathing at 14, blood pressure is 172/97, saturating 97% on room air. General: Pleasant, elderly male, in no apparent distress. Head and Neck: Pupils are equal, reactive to light. Intact eye movements. No JVD. No cervical lym phadenopathy. Neck is supple. Thyroid is not enlarged. Lungs: Decreased breathing sounds bilaterally. No accessory muscle use or muscle retraction. Heart: Irregularly irregular. No extra sounds. Abdomen: Soft, nontender. Bowel sounds positive. No organomegaly. No masses or hernia. No rigidi ty or rebound. Extremities: No clubbing or cyanosis. Intact pulses. Skin: No rash. Neurologic: Alert, awake. No acute focal deficits appreciated. Investigations: His is NT-proBNP is 16,000. Troponins trended down. Creatinine 1.1. Assessment And Recommendations: 1.Atrial fibrillation with rapid ventricular response. Was started on sotalol yesterday. Heart shlomo wise is still fast. Continue the current regimen for now and monitor for next 24 hours. If he does not slow down further or convert in sinus rhythm, then we will plan for IV amiodarone, continue Xarelto. 2.Has a borderline elevated troponin, known history of coronary artery disease. There is no chest p ain. Recommend Lexiscan nuclear stress test. 3.Has a systolic congestive heart failure. EF is 35% with significant anterior wall and apical wall hypokinesis suggestive of old injury and old infarction. Please obtain a Lexiscan nuclear stress te st to further evaluate the presence of ischemia. The patient follows up with Cardiology in [place] with Dr. Cook. Continue IV Lasix 40 mg q.12 hours. Continue to monitor BUN, creatinine, and electrol ytes. 4.Coronary artery disease, borderline troponin leak. Lexiscan nuclear stress test as above. SR/MODL Voice ID: [id number] Report ID: [id number]
[2021-12-05] MEDS: ALPRAZOLAM 0.25 MG TABLET PO PRN (00:31)
[2021-12-05 05:34] LABS: Absolute Lymphocytes (CBC) 1.7 K/uL (0.7-4.9); Hematocrit 28.5 % (39.6-49.0); Lymphocytes % 21.5 % (15.3-44.8); MCV 83.5 fL (80-100); RBC Red Blood Cell Count 3.41 M/uL (4.33-5.43)
[2021-12-05] MEDS: SOTALOL HCL 80 MG TAB PO SCH (05:39)
[2021-12-05 05:57] LABS: Bilirubin Total 0.6 mg/dL (0.2-1.0); Potassium 3.4 mmol/L (3.5-5.1); Protein, Total 6.5 g/dL (6.4-8.2)
[2021-12-05] MEDS: POTASSIUM 25 MEQ EFFERV TAB PO SCH (06:19)
[2021-12-05] MEDS: INSULIN -REGULAR HUMAN 50 UNIT/0.5 ML ML SQ SCH ×2 (07:30→11:30)
[2021-12-05] MEDS ORDERED: POTASSIUM 25 MEQ EFFERV TAB PO ONE (07:30)
[2021-12-05] MEDS: FUROSEMIDE 40 MG/4 ML VIAL IV SCH (08:38)
--- NOTE | 2021-12-05 08:53 | EKG ---
Test Date: 2021-12-04 Test Time: 03:02:17 Electrician Station Assistant: HB MEASUREMENT RESULTS: Intervals: Rate: 127 NM: QRSD: 124 QT: 374 QTc: 543 [place]: P: NM: QRS: -70 T: 56 INTERPRETIVE STATEMENTS: Wide QRS tachycardia Left axis deviation Inferior infarct, age undetermined Abnormal ECG Compared to ECG 12/03/2021 06:07:30 Wide-QRS tachycardia now present Atrial fibrillation no longer present Myocardial infarct finding still present Electronically Signed On 12-05-21 08:47:23 CDT by Jose Nunn
[2021-12-05 09:43] VITALS: O2SAT 96
--- NOTE | 2021-12-05 14:35 | P.DS ---
Admission Date: 12/03/21 Discharge Date: 12/05/21 Disposition: TRANSFER TO [facility] Comment: [facility] Discharge Condition: FAIR Reason for Admission: Atrial fibrillation with rapid ventricular response Consultations: 1. Cardiology Hospital Course: DIAGNOSES: # Acute on Chronic Decompensated Combined Systolic/Diastolic Congestive Heart Failure with Reduced Ejection Fraction (LVEF 35-40%) # Atrial Fibrillation with Rapid Ventricular Response # Coronary Artery Disease s/p CABG # Hypertension # Hyperlipidemia # Chronic Obstructive Pulmonary Disease # Recent COVID-19 Infection # Type II Diabetes Mellitus # Gastroesophageal Reflux Disease # Obstructive Sleep Apnea HOSPITAL COURSE: Mr. Ludwin Hsu is a pleasant 71-year-old male with a past medical history significant for chronic combined systolic and diastolic congestive heart failure coronary artery disease s/p CABG, chronic obstructive pulmonary disease, type 2 diabetes mellitus, hypertension, atrial fibrillation, and hyperlipidemia who was admitted to the [facility] on 12/03/2021 for atrial fibrillation with rapid ventricular response. He was admitted to the Medicine service and Cardiology was consulted. He was started on sotalol and rivaroxaban per cardiology recommendations. His atrial fibrillation has been ratecontrolled since starting this treatment. Additionally, at presentation, he was found to have acute on chronic decompensated congestive heart failure. His transthoracic echocardiogram revealed an ejection fraction of 35-40% as well as moderate diastolic dysfunction. With IV furosemide, his symptoms continued to improve from a respiratory standpoint. Earlier today, he had a 6.1-second pause on his telemetry. I spoke with Dr. Conte (Cardiology), who recommended that he be transferred for pacemaker evaluation. With the assistance of the transfer center, he was excepted to [facility] for further evaluation. I have completed a doc-to-doc with Dr. Deangelo Raymond ([facility] hospitalist), Dr. Davon Webber ([facility] Cardiology), and Dr. Quinn French ([facility] ICU), who have generously accepted him for transfer. Per their recommendations, I have discontinued rivaroxaban and started him on enoxaparin. He and his were given the opportunity to ask questions and reported no further questions. Furthermore, all questions were answered to the best of my ability. Today, I personally spent 50 minutes on his case, of which greater than 50% of the time was spent in patient education, counseling, and coordination of care as described above. Physical Exam General: Alert, In no apparent distress, Oriented x3 HEENT: Atraumatic, PERRLA, Mucous membr. moist/pink, EOMI, Sclerae nonicteric Neck: Supple, JVD not distended Respiratory: Normal air movement, Crackles/rales (bibasilar) Cardiovascular: Irregularly, irregular rate/rhythm, No gallops, No rubs, No murmurs, Edema (1-2+ bilateral lower extremity) Gastrointestinal: Normal bowel sounds, Soft and benign, Non-distended, No tenderness, No rebound, No guarding Musculoskeletal: No clubbing Integumentary: No rashes Neurological: Normal speech, Normal affect Vital Signs/Physical Exam: Temp Pulse Resp BP Pulse Ox 97.1 F 81 28 H 129/69 98 12/05/21 12:00 12/05/21 12:00 12/05/21 12:00 12/05/21 12:00 12/05/21 12:00 Laboratory Data at Discharge: WBC 7.9 K/uL (4.3-10.9) 12/05/21 05:00 Hgb 9.4 g/dL (13.6-17.9) L 12/05/21 05:00 Hct 28.5 % (39.6-49.0) L 12/05/21 05:00 Plt Count 221 K/uL (152-406) 12/05/21 05:00 Sodium 142 mmol/L (136-145) 12/05/21 05:00 Potassium Cancelled 12/05/21 13:30 BUN 19 mg/dL (7-18) H 12/05/21 05:00 Creatinine 1.12 mg/dL (0.55-1.3) 12/05/21 05:00 Glucose 115 mg/dL (74-106) H 12/05/21 05:00 Phosphorus Cancelled 12/04/21 05:00 Magnesium 2.0 mg/dL (1.8-2.4) 12/05/21 05:00 Total Bilirubin 0.6 mg/dL (0.2-1.0) 12/05/21 05:00 AST 15 U/L (15-37) 12/05/21 05:00 ALT 22 U/L (12-78) 12/05/21 05:00 Alkaline Phosphatase 105 U/L (45-117) 12/05/21 05:00 Home Medications: Gabapentin [Neurontin*] 3 cap PO TID 12/02/16 Aspirin 81 mg PO DAILY 11/10/17 glipiZIDE [Glucotrol] 10 mg PO DAILY 11/10/17 Metformin ER [Glucophage ER*] 1,000 mg PO BID 02/17/18 Aripiprazole [Abilify] 30 mg PO DAILY 08/28/20 Atorvastatin Calcium [Lipitor] 40 mg PO BEDTIME 08/28/20 Losartan Potassium [Cozaar] 100 mg PO DAILY 08/28/20 Rivaroxaban [Xarelto*] 20 mg PO DAILY 6PM 08/28/20 Albuterol Neb [Proventil 0.083% Neb Soln] 2.5 mg NEB [id number] PRN #120 amp 08/29/20 Budesonide/Formoterol Fumarate [Symbicort 160-4.5 Mcg Inhaler] 1 puff IH DAILY PRN 09/17/20 Spironolactone [Aldactone] 25 mg PO DAILY #30 tablet 09/23/20 Amiodarone HCl 100 mg PO DAILY 30 Days #30 tablet 01/14/21 Furosemide [Lasix*] 40 mg PO BID #60 tab 01/14/21 Albuterol Neb [Proventil 0.083% Neb Soln] 2.5 mg NEB Q6HP PRN #120 amp 04/21/21 Amlodipine [Norvasc*] 10 mg PO DAILY #30 tab 04/21/21 Ipratropium Neb [Atrovent*] 0.5 mg NEB [id number] PRN #120 amp 04/21/21 Nebulizer [Aeroneb Go Nebulizer] 1 each QID #1 each 04/21/21 Diet: AHA Activity: Bedrest Followup: Unknown,U [Primary Care Provider] - Davon Webber MD [OUTSIDE PHYSICIAN] - Time spent managing pt's care (in minutes): 50
--- NOTE | 2021-12-05 16:12 | PN ---
Date of Progress Note: 12/05/2021 Subjective: Seen by bedside. He is resting, sleepy. Does not have any specific complaints; however , he is in atrial fibrillation and had a long pause about 6 seconds, but no symptoms with that. Review of Systems: No chest pain, shortness of breath, orthopnea, or cough. No nausea, vomiting, diarrhea. All other s ystems reviewed and are negative. Physical Examination: Vital Signs: Temperature is 97.1, pulse 81, breathing at 28, blood pressure 129/69, saturating 96%. General: He is an elderly male, in no apparent distress. Head and Neck: Pupils are equal, reactive to light. Intact eye movements. No JVD. No cervical lym phadenopathy. Neck is supple. Thyroid is not enlarged. Lungs: Decreased breathing sounds bilaterally with rhonchi. No accessory muscle use or muscle retra ction. Heart: Irregularly irregular. No extra sounds. Abdomen: Soft, nontender. Bowel sounds positive. No organomegaly. No masses or hernia. No rigidi ty or rebound. Extremities: No clubbing or cyanosis. Intact pulses. Skin: No rash. Neurologic: Alert, awake. No acute focal deficits appreciated. Investigations: Labs were reviewed. Assessment And Recommendations: 1.Atrial fibrillation, rate now is very slow and he had long pause more than 6 seconds. Discontinue the sotalol and I recommend transfer to higher level of care for EP evaluation, possible biventricul ar pacemaker implantation and atrial fibrillation ablation as well. 2.Systolic congestive heart failure. Ejection fraction is moderately depressed at 35%. The patient refused to have a Lexiscan done as he follows up with a machine zipper trimmer at [facility]. He was instructed and encouraged to follow up on this matter. Meanwhile, I will continue with Lasix, carefully monitor BUN , creatinine, electrolytes. SR/MODL Voice ID: [id number] Report ID: [id number]
[2021-12-05] MEDS ORDERED: ENOXAPARIN 100 MG/ML SYR SQ ONE (17:00)
[2021-12-05 17:14] VITALS: BP 150/64; TEMP 97.5
== END 2021-12-05 17:25 | disposition short-term general hospital (02) | DRG 308 ==
LOC: ER 05:52 → ERHOLD 10:42 → 2ND 11:59
PROVIDERS: ADMIT Hospitalist; ATTEND Hospitalist
DX: I48.0 Paroxysmal atrial fibrillation (principal); I50.43 Acute on chronic combined systolic (congestive) and diastolic (congestive) heart failure; I11.0 Hypertensive heart disease with heart failure; I25.10 Atherosclerotic heart disease of native coronary artery without angina pectoris; E78.5 Hyperlipidemia, unspecified; J44.9 Chronic obstructive pulmonary disease, unspecified; K21.9 Gastro-esophageal reflux disease without esophagitis; G47.33 Obstructive sleep apnea (adult) (pediatric); E11.40 Type 2 diabetes mellitus with diabetic neuropathy, unspecified; E66.01 Morbid (severe) obesity due to excess calories; Z68.31 Body mass index [BMI] 31.0-31.9, adult; Z79.82 Long term (current) use of aspirin; Z87.891 Personal history of nicotine dependence; Z86.19 Personal history of other infectious and parasitic diseases; Z95.1 Presence of aortocoronary bypass graft; Z95.5 Presence of coronary angioplasty implant and graft; Z86.16 Personal history of COVID-19; Z20.822 Contact with and (suspected) exposure to COVID-19
CPT/HCPCS: 36415; 71045; 71275; 80048; 80053; 82607; 82728; 82746; 82805; 82947; 83540; 83605; 83735; 83880; 84100; 84132; 84439; 84443; 84484; 85025; 85379; 87811; 93005; 93306; 94640; 94660; 94760; 96374; 99285; J1650; J1815; J1940; Q9967

== ENCOUNTER 2022-07-08 22:13 | Inpatient (IN) | payer OTHER ==
--- OUTSIDE RECORDS SUMMARY | 2022-07-08 22:45 | XMS REPORT | Continuity of Care Document ---
:1950 Author Organization [facility] t Address [address] [place] [address] [address] [place] [address] Care Team Providers Name Role [facility], [facility] Primary Care Physician Unavailable [id number] Attending Clinician Unavailable AMBER AZAR JAMES Attending Clinician Unavailable KEVIN HAMMER Attending Clinician Unavailable Doctor Unassigned, [place] Attending Clinician Unavailable Gillian ESCOTO, Quinn Cornejo Attending Clinician Gonzalez Raymond MD Attending Clinician Yuki ESCOTO, Leidy Nkmarleeu Attending Clinician GONZALEZ RAYMOND Attending Clinician Unavailable Zachery ESCOTO, Micaela Attending Clinician Mau MITCHELL, Clifford A Attending Clinician Unavailable WERO KAPLAN Attending Clinician Unavailable Kavin Locke MD Attending Clinician Jordon Buckley MD Attending Clinician Wero Kaplan MD Attending Clinician Benedicto Ramos Attending Clinician Unavailable Physician, No Primary or Family Attending Clinician Unavailjake Almonte MD, Sendil K.H. Attending Clinician Natalee ESCOTO, José Antonio Kemp Attending Clinician Cinthya ESCOTO, Maycol Pereira Attending Clinician Josephine ESCOTO, Greer Alexander Attending Clinician Jed Hernandez MD, Erwin Sosa Attending Clinician [phone] Cara ESCOTO, Endy Grimes Attending Clinician Panfilo ESCOTO, Kvng Amaya Attending Clinician Tami ESCOTO, Ronald Brown Attending Clinician Kacy ESCOTO, Yen Mix Attending Clinician Britton ESCOTO, Meredith Ramos Attending Clinician MEREDITH COTTER V. Attending Clinician Unavailable Lucian Clements Attending Clinician Unavailable SHERI, SENDIL K.HKhadar Attending Clinician Unavailable Jaquelin ESCOTO, Kevin Attending Clinician 2, [facility] Attending Clinician Unavailable Daniel Monreal Attending Clinician Unavailable PARESH GUZMÁN Attending Clinician Unavailable ADITI LYMAN Attending Clinician Unavailable OLIVIA SÁNCHEZ Attending Clinician Unavailable [id number] Admitting Clinician Unavailable WILMAR WHITESIDE JOHN Admitting Clinician Unavailable LEIDY WALTERS NKIRU Admitting Clinician Unavailable JORDON BUCKLEY Admitting Clinician Unavailable Jordon Buckley MD Admitting Clinician Benedicto Ramos Admitting Clinician Unavailable Physician, No Primary or Family Admitting Clinician UnavailJOSÉ ANTONIO Griffin Admitting Clinician Unavailable Daniel Monreal Admitting Clinician Unavailable PARESH GUZMÁN Admitting Clinician Unavailable ADITI LYMAN Admitting Clinician Unavailable OLIVIA SÁNCHEZ Admitting Clinician Unavailable Payers Payer Name Policy Type Policy Number Effective Date Expiration Date S [facility] [id number] [facility] [id number] 2009 00:00:00 MEDICARE PART A [id number] 2013 \\T\\ B 00:00:00 Problems Condition Condition Condition Status Onset Resolution Last Treating Co mments Source Name Details Category Date Date Treatment Clinician Date Arrhythmia Arrhythmia Disease Active [facility] 00 [place] Pulmonary Pulmonary Disease Active Uni vers hypertensi hypertensi 6-19 it y of on on 00:00: [place] [id number] Medical Branch Acute on Acute on Disease Active Unive rs chronic chronic 6-19 ity of diastolic diastolic 00:00: [place] congestive congestive 00 Me dical heart heart Branch failure failure Coronary Coronary Disease Active Unive rs artery artery 6-19 ity of disease disease 00:00: [place] involving involving 00 [facility] [place] coronary coronary artery of artery of [place] heart heart without without angina angina pectoris pectoris Troponin I Troponin I Disease Active U nivers above above 6-19 ity of reference reference 00:00: [place] range range 00 Medical Branch Other Other Disease Active Univers specified specified 6-19 ity of anemias anemias 00:00: [place] 00 Medical Branch Obesity Obesity Disease Active Univers (BMI (BMI 6-19 ity of 30-39.9) 30-39.9) 00:00: [place] 00 Medical Branch Other Other Disease Active Univers heart heart 6-18 ity of failure failure 00:00: [address] Branch Moderate Moderate Disease [facility] protein-ca protein-ca 2-23 [facility] [facility] coco sepulveda 00:00: Medical malnutriti malnutriti 00 Ce nter on on MRSA MRSA Disease Active [facility] bacteremia bacteremia 2-12 [facility] 00:00: [facility] 00 [place] Pneumonia Pneumonia Disease Active [facility] of both of both 2-12 [facility] lungs due lungs due 00:00: [facility] oralia to to 00 [place] methicilli methicilli n n resistant resistant Staphyloco Staphyloco ccus ccus aureus aureus (MRSA) (MRSA) Severe Severe Disease Active [facility] sepsis sepsis 2-12 [facility] 00:00: [facility] 00 [place] Acute Acute Disease Active [facility] hypoxemic hypoxemic 2-12 [facility] s respirator respirator 00:00: Me dical y failure y failure 00 Cent er due to due to COVID-19 COVID-19 Acute Acute Disease Active [facility] metabolic metabolic 2-12 [facility] encephalop encephalop 00:00: Me dical athy athy 00 Center Atrial Atrial Disease Active [facility] fibrillati fibrillati 2-12 [place] [facility] on with on with 00:00: Medical RVR RVR 00 Center Acute on Acute on Disease Active [facility] chronic chronic 2-12 [facility] diastolic diastolic 00:00: [facility] CHF CHF 00 Center (congestiv (congestiv e heart e heart failure), failure), NYHA class NYHA class 4 4 COVID-19 COVID-19 Disease Active [facility] 00:[facility]: Medical 00 Center Hx of CABG Hx of CABG Disease Active U nivers 9-28 ity of 00:00: [place] 00 Medical Branch Persistent Persistent Disease Active U nivers atrial atrial 9-28 ity of fibrill[place] fibrill[place] 00 Medical Branch Acute Acute Disease Active [facility] hypoxemic hypoxemic 9-19 [facility] respirator respirator 00:00: Me dical y failure y failure 00 Cent er Acute Acute Disease Active [facility] respirator respirator 9-19 [place] [facility] y failure y failure 00:00: [facility] 00 Center S/P CABG S/P CABG Disease Active [facility] (coronary (coronary 7-17 [facility] artery artery 00:00: Medical bypass bypass 00 Center graft) graft) NSTEMI NSTEMI Disease Active [facility] (non-ST (non-ST 7-17 [facility] elevated elevated 00:00: Medica l myocardial myocardial 00 Ce nter infarction infarction ) ) Essential Essential Disease Active [facility] hypertensi hypertensi 7-17 [facility] [facility] on on 00:00: Medical 00 Center Acute on Acute on Disease Active [facility] chronic chronic 7-17 [facility] diastolic diastolic 00:00: [facility] (congestiv (congestiv 00 Ce nter e) heart e) heart failure failure Acute Acute Disease Active [facility] respirator respirator 7-12 [facility] y y 00:00: Medical insufficie insufficie 00 Ce nter ncy ncy Other Other Disease Active [facility] shock shock 11-14 [facility] 00:00: Medical 00 Center CAD CAD Disease Active [facility] (coronary (coronary 11-11 [facility] artery artery 00:00: Medical disease) disease) 00 Center CKD CKD Disease Active Overview: [facility] (chronic (chronic 05-06 [place] kidney kidney 00:00: g of this Medical disease) disease) 00 note Center stage 2, stage 2, might be GFR 60-89 GFR 60-89 different ml/min ml/min from the original. Baseline Creatinin e ~ 1-1.3 Coronary Coronary Disease Active Overview: [facility] artery artery 05-06 [facility] disease disease 00:00: g of this Medic al 00 note Center might be different from the original. PCI 2013, 2015- on plavix / ACB x 3: IBRAHIM-> LAD, SVG-> OM1, SVG-> OM2 Diabetes Diabetes Disease Active Overview: [facility] mellitus mellitus 05-06 [place] 00:00: g of this Medical 00 note Center might be different from the original. oral meds including metformin Hypertensi Hypertensi Disease Active [facility] on on 05-06 [facility] 00:00: Medical 00 Center Hepatitis Hepatitis Disease Active 2006-05 Overview: Univers 0-18 [place] ity of 00:00: g of [place] [id number] note Medical might be Branch different from the original. Hepatitis CICD10 Diagnosis Term [employer] NORRIS on NORRIS on Disease Active Overview: [facility] CPAP CPAP [facility] g of this Medical note Center might be different from the original. claims complianc e with CPAP Current Current Disease Active [facility] smoker smoker [facility] Allergies, Adverse Reactions, Alerts Allergy Allergy Status Severity Reaction(s) Onset Inactive Treating Comm ents Source Name Type Date Date Clinician No Known DA Active [facility] Allergie 08-12 [place] 00:[facility]: [place] 00 [facility] No Known DA Active U [facility] Allergie 08-12 [place] 00:00: d [address] [place] [address] NO KNOWN Allergy Active [facility] ALLERGIE S NO KNOWN Drug Active Univers ALLERGIE Class ity of S [facility] Social History Social Habit Start Date Stop Date Quantity Comments Source History of tobacco Cigarette Smoker University of use [facility] Alcohol intake 2021-12-08 2021-12-[address] [facility] 00:00:00 00:00:00 non-drinker of Medical Ce nter alcohol (finding) Exposure to 2021-10-11 2021-10-21 Not sure [facility]-CoV-2 (event) 00:00:00 10:46:00 [facility] Cigarettes smoked 2017-11-11 2017-11-[address] [facility] current (pack per 00:00:00 00:00:00 Medical Center day) - Reported Cigarette 2017-11-11 2017-11-[address] [facility] pack-years 00:00:00 00:00:00 [facility] Tobacco use and 2017-11-11 2017-11-[address] [facility] [place] exposure 00:00:00 00:00:00 [facility] Sex [birth year] [facility] Mykel kes 00:00:00 00:00:00 [facility] Smoking Status Start Date Stop Date Source Current every day smoker 2017-11-11 00:00:00 [facility] Medications Ordered Filled Start Stop Current Ordering Indication Dosage Frequency Signature Comments Components Source Medication Medication Date Date Medication? Clinician (SIG) Name Name furosemide Yes 60mg QD Take 3 [facility] (LASIX) 20 8-10 tablets [facility] MG tablet 00:00: (60 mg Medica l 00 total) by Center mouth daily. furosemide Yes 60mg QD Take 3 [facility] (LASIX) 20 8-10 tablets [facility] MG tablet 00:00: (60 mg Medica l 00 total) by Center mouth daily. aspirin 81 Yes 81mg QD Take [address] MG EC 8- by mouth [facility] tablet 18:54: daily. [address] ARIPiprazol Yes 30mg QD Take [address] e (ABILIFY) 8- by mouth Luke s 30 MG 18:54: daily. Medical [address] aspirin 81 Yes 81mg QD Take [address] MG EC 8-09 by mouth [facility] tablet 18:54: daily. [address] ARIPiprazol Yes 30mg QD Take [address] [facility] e (ABILIFY) 12-12 by mouth Luke s 30 MG 18:54: daily. Medical tablet 12 [place] gabapentin 2021- No 400mg Q.[id number] Take [address] (NEURONTIN) 12-12 [id number] mg by [facility] 400 MG 13:52: 00:00 3D mouth 3 Medical capsule 48 :00 (three) Center times daily. glipiZIDE 2021- No 10mg QD Take [address] (GLUCOTROL) 12-12 by mouth Holly es 10 MG 13:52: 00:00 daily. Medical tablet 48 :00 [place] rivaroxaban 2021- No 20mg Take [address] (XARELTO) 12-12 by mouth [facility] 20 mg 13:52: 00:00 daily with Medic al tablet 48 :00 dinner. [place] metFORMIN 2021- No 1000mg Take 1,[address] (GLUCOPHAGE 12-12 mg by [facility] ) 1000 MG 13:52: 00:00 mouth 2 Medi oralia tablet 48 :00 (two) Center times daily with breakfast and dinner. losartan 2021- No 100mg QD Take [address] (COZAAR) 12-12 mg by [facility] 100 MG 13:52: 00:00 mouth Medical tablet 48 :00 daily. [place] spironolact 2021- No 25mg QD Take [address] [facility] one 12-12 by mouth [facility] (ALDACTONE) 13:52: 00:00 daily. Med ical 25 MG 48 :00 Center tablet amiodarone 2021- No 100mg QD Take [address] (PACERONE) 12-12 mg by [facility] 100 MG 13:52: 00:00 mouth Medical tablet 48 :00 daily. [place] amLODIPine 2021- No 10mg QD Take [address] (NORVASC) 12-12 by mouth [facility] 10 MG 13:52: 00:00 daily. Medical tablet 48 :00 [place] gabapentin 2021-2021- No 400mg Q.[id number] Take [address] (NEURONTIN) 12-12 [id number] mg by [facility] 400 MG 13:52: 00:00 3D mouth 3 Medical capsule 48 :00 (three) Center times daily. glipiZIDE 2021- No 10mg QD Take [address] (GLUCOTROL) 12-12 by mouth [place] es 10 MG 13:52: 00:00 daily. Medical tablet 48 :00 [place] rivaroxaban 2021- No 20mg Take [address] (XARELTO) 12-12 by mouth [facility] 20 mg 13:52: 00:00 daily with Medic al tablet 48 :00 dinner. [place] metFORMIN 2021- No 1000mg Take 1,[address] (GLUCOPHAGE 12-12 mg by [facility] ) 1000 MG 13:52: 00:00 mouth 2 Medi oralia tablet 48 :00 (two) Center times daily with breakfast and dinner. losartan 2021- No 100mg QD Take [address] (COZAAR) 12-12 mg by [facility] 100 MG 13:52: 00:00 mouth Medical tablet 48 :00 daily. [place] spironolact 2021- No 25mg QD Take [address] [facility] one 12-12 by mouth [facility] (ALDACTONE) 13:52: 00:00 daily. Med ical 25 MG 48 :00 Center tablet amiodarone 2021- No 100mg QD Take [address] (PACERONE) 12-12 mg by [facility] 100 MG 13:52: 00:00 mouth Medical tablet 48 :00 daily. [place] amLODIPine 2021- No 10mg QD Take [address] [address] (NORVASC) 12-12 by mouth [facility] 10 MG 13:52: 00:00 daily. Medical tablet 48 :00 [place] folic acid Yes 1mg QD Take 1 [facility] (FOLVITE) 1 - tablet (1 [place] MG tablet 00:00: mg total) Med ical 00 by mouth Center daily. senna-docus Yes 1{tbl} QD Take [address] ate - tablet by [facility]ukes (SENOKOT S) 00:00: mouth Medic al 8.6-50 mg 00 nightly Center per tablet Hold if having diarrhea. thiamine 2022-0 Yes 100mg QD Take [address] 100 MG 8-09 tablet [facility] tablet 00:00: (100 mg Medical 00 total) by Center mouth daily. atorvastati 2022-0 Yes 40mg QD Take [address] n (LIPITOR) 8-09 tablet (40 [place] [facility] 40 MG 00:00: mg total) Medical tablet 00 by mouth Center nightly. spironolact 2022-0 Yes 25mg QD Take [address] [facility] [facility] one 8-09 tablet (25 [facility] (ALDACTONE) 00:00: mg total) M edical 25 MG 00 by mouth Center tablet daily. amLODIPine 2022-0 Yes 10mg QD Take 1 [facility] t (NORVASC) 8- tablet (10 Luke s 10 MG 00:00: mg total) Medical tablet 00 by mouth Center daily. famotidine 2-0 Yes 20mg Take 1 [facility] (PEPCID) 20 - tablet (20 [place] MG tablet 00:00: mg total) Med ical 00 by mouth Center every 12 (twelve) hours. ipratropium 2-0 Yes 3mL Q.[id number] Take [address] -albuteroL 12-12 [id number] by [place] es (DUO-NEB) 00:00: 3D nebulizati Me dical 0.5 mg-3 00 on 3 Center mg(2.5 mg (three) base)/3 mL times nebulizer daily. solution losartan 2022-0 Yes 100mg QD Take [address] (COZAAR) 12-12 tablet [facility] 100 MG 00:00: (100 mg Medical tablet 00 total) by Center mouth daily. metoprolol 2-0 Yes 25mg Q.5D Take 1 [facility] tartrate -09 tablet (25 [facility] (LOPRESSOR) 00:00: mg total) M edical 25 MG 00 by mouth 2 Center tablet (two) times daily. rivaroxaban 2022-0 Yes 20mg Take [address] [facility] [address] (XARELTO) 8-09 tablet (20 Luke s 20 mg 00:00: mg total) Medical tablet 00 by mouth Center daily with dinner. ALPRAZolam 2022-0 Yes .25mg Take [address] (XANAX) 8-09 tablet [facility] 0.25 MG 00:00: (0.25 mg Medica l tablet 00 total) by Center mouth 2 (two) times daily as needed for Anxiety. Max Daily Amount: 0.5 mg folic acid 2021-0 Yes 1mg QD Take 1 [facility] (FOLVITE) 1 - tablet (1 [place] [facility] MG tablet 00:00: mg total) Med ical 00 by mouth Center daily. senna-docus 2021-0 Yes 1{tbl} QD Take [address] ate 12-12 tablet by [facility]ukes (SENOKOT S) 00:00: mouth Medic al 8.6-50 mg 00 nightly Center per tablet Hold if having diarrhea. thiamine 2-0 Yes 100mg QD Take [address] 100 MG - tablet [facility] tablet 00:00: (100 mg Medical 00 total) by Center mouth daily. atorvastati 2021-0 Yes 40mg QD Take [address] [facility] n (LIPITOR) 12-12 tablet (40 [place] 40 MG 00:00: mg total) Medical tablet 00 by mouth Center nightly. spironolact 2021-0 Yes 25mg QD Take [address] [facility] [facility] one - tablet (25 [facility] (ALDACTONE) 00:00: mg total) M edical 25 MG 00 by mouth Center tablet daily. amLODIPine 2021-0 Yes 10mg QD Take 1 [facility] (NORVASC) - tablet (10 Luke s 10 MG 00:00: mg total) Medical tablet 00 by mouth Center daily. famotidine 2021-0 Yes 20mg Take 1 [facility] (PEPCID) 20 12-12 tablet (20 [place] [facility] MG tablet 00:00: mg total) Med ical 00 by mouth Center every 12 (twelve) hours. ipratropium 2021-0 Yes 3mL Q.[id number] Take [address] [address] -albuteroL 12-12 [id number] by [place] es (DUO-NEB) 00:00: 3D nebulizati Me dical 0.5 mg-3 00 on 3 Center mg(2.5 mg (three) base)/3 mL times nebulizer daily. solution losartan 2022-0 Yes 100mg QD Take [address] (COZAAR) 12-12 tablet [facility] 100 MG 00:00: (100 mg Medical tablet 00 total) by Center mouth daily. metoprolol 2021-0 Yes 25mg Q.5D Take 1 [facility] tartrate 8-09 tablet (25 [facility] (LOPRESSOR) 00:00: mg total) M edical 25 MG 00 by mouth 2 Center tablet (two) times daily. rivaroxaban 2021-0 Yes 20mg Take [address] [facility] (XARELTO) 8-09 tablet (20 Luke s 20 mg 00:00: mg total) Medical tablet 00 by mouth Center daily with dinner. ALPRAZolam 2021-0 Yes .25mg Take [address] (XANAX) 8 tablet [facility] 0.25 MG 00:00: (0.25 mg Medica l tablet 00 total) by Center mouth 2 (two) times daily as needed for Anxiety. Max Daily Amount: 0.5 mg mINOCYCLine 2021-0 2022- No 100mg Q.5D Take [address] (MINOCIN,DY 12-12- capsule Luke s NACIN) 100 00:00: 23:59 (100 mg Med ical MG capsule 00 :00 total) by Cent er mouth 2 (two) times daily for 7 days. mINOCYCLine 2021-0 2021- No 100mg Q.5D Take [address] (MINOCIN,DY 12-12 capsule Luke s NACIN) 100 00:00: 23:59 (100 mg Med ical MG capsule 00 :00 total) by Cent er mouth 2 (two) times daily for 7 days. glipiZIDE 0 Yes 10mg Take 10 mg Un emilia 10 mg 6-24 by mouth ity of tablet 13:40: daily. [address] rivaroxaban 2021-0 Yes Take by Uni vers 20 mg 6-24 mouth ity of tablet 13:40: daily. [address] aspirin 81 2021-0 Yes 81mg Take 81 mg U nivers mg EC 6-24 by mouth ity of tablet 13:40: daily. [address] gabapentin 2021-0 Yes 100mg Take 100 Un emilia 100 mg 6-24 mg by ity of capsule 13:40: mouth 3 [place] [address] (three) Medical times Branch daily. KCL 10 mEq 2021-0 Yes 40meq Take 40 Uni vers tablet 6-24 mEq by ity of 13:40: mouth [place] 22 daily. [facility] Branch glipiZIDE 0 Yes 10mg Take 10 mg Un emilia 10 mg 6-24 by mouth ity of tablet 13:40: daily. [address] rivaroxaban 0 Yes Take by Uni vers 20 mg 6-24 mouth ity of tablet 13:40: daily. [address] aspirin 81 2021-0 Yes 81mg Take 81 mg U nivers mg EC 6-24 by mouth ity of tablet 13:40: daily. [address] Branch gabapentin 0 Yes 100mg Take 100 Un emilia 100 mg 6-24 mg by ity of capsule 13:40: mouth 3 [place] [address] (three) Medical times [place] daily. KCL 10 mEq 2021-0 Yes 40meq Take 40 Uni vers tablet 6-24 mEq by ity of 13:40: mouth [place] 22 daily. [facility] Branch glipiZIDE Yes 10mg Take 10 mg Un emilia 10 mg 6-24 by mouth ity of tablet 13:40: daily. [address] rivaroxaban Yes Take by Uni vers 20 mg 6-24 mouth ity of tablet 13:40: daily. [address] aspirin 81 2021-0 Yes 81mg Take 81 mg U nivers mg EC 6-24 by mouth ity of tablet 13:40: daily. [address] gabapentin 2021-0 Yes 100mg Take 100 Un emilia 100 mg 6-24 mg by ity of capsule 13:40: mouth 3 [place] [address] (three) Medical times [place] daily. KCL 10 mEq 2021-0 Yes 40meq Take 40 Uni vers tablet 6-24 mEq by ity of 13:40: mouth [place] 22 daily. Medical Branch metoprolol 2021- No [id number] 50mg Take 1 Univers succinate 6-24 07-25 tablet by ity of XL 50 mg 24 00:00: 04:59 mouth [place] hr tablet 00 :00 daily for Medic al 30 days. Branch furosemide 2021-2021- No [id number] 40mg Take 1 Univers 40 mg 6-24 07-25 tablet by ity of tablet 00:00: 04:59 mouth [place] 00 :00 daily for Medical 30 days. Branch metoprolol 2021- No [id number] 50mg Take 1 Univers succinate 10-27-25 tablet by ity of XL 50 mg 24 00:00: 04:59 mouth [place] hr tablet 00 :00 daily for Medic al 30 days. Branch furosemide 2021- No [id number] 40mg Take 1 Univers 40 mg 10-27-25 tablet by ity of tablet 00:00: 04:59 mouth [place] 00 :00 daily for Medical 30 days. Branch gabapentin Yes 100mg 100 mg, Uni vers (NEURONTIN) - Oral, TID, it y of capsule 100 17:30: First dose [place] mg 00 on [facility] Medical 10/26/21 at Branch 1230, Until Discontinu ed, Routine TORSEMIDE 2021- No 25mg Take 25 mg U nivers ORAL 10-26- by mouth 2 ity of 16:01: 00:00 (two) [place] 57 :00 times Medical daily. Branch metoprolol 2021- No 12.5mg Take 12.5 Univers tartrate 10-26- mg by ity of 12.5 mg 16:01: 00:00 mouth 2 [place] 57 :00 (two) Medical times Branch daily. aspirin EC Yes 81mg 81 mg, Unive rs tablet 81 10-26 Oral, ity of mg 14:00: DAILY, [place] 00 First dose Medical on [facility] 10/26/21 at 0900, Until Discontinu ed, Routine ferrous 2021- No [id number] 325mg Take 1 Un emilia sulfate 325 10-26-24 tablet by it y of mg (65 mg 00:00: 04:59 mouth 2 [place] iron) 00 :00 (two) Medical tablet times [place] daily for 30 days. atorvastati 2021- No [id number] 40mg Take 1 Univers n 40 mg 10-26-24 tablet by ity of tablet 00:00: 04:59 mouth at [place] 00 :00 bedtime Medical for 30 Branch days. ferrous 2021- No [id number] 325mg Take 1 Un emilia sulfate 325 10-26-24 tablet by it y of mg (65 mg 00:00: 04:59 mouth 2 [place] iron) 00 :00 (two) Medical tablet times [place] daily for 30 days. atorvastati 2021- No [id number] 40mg Take 1 Univers n 40 mg 10-26 07-24 tablet by ity of tablet 00:00: 04:59 mouth at [place] 00 :00 bedtime Medical for 30 Branch days. traMADoL Yes 50mg 50 mg, Univers (ULTRAM) 10-25 Oral, ity of tablet 50 18:13: Q6HPRN, [place] mg 54 Starting Medical on Sat [place] 10/25/21 at 1313, Until Discontinu ed, Routine, Pain (scale 7-10) atorvastati Yes 40mg 40 mg, Univ ers n (LIPITOR) 10-25 Oral, QHS, it y of tablet 40 02:00: First dose [place] mg 00 on [facility] 10/24/21 at Branch 2100, Until Discontinu ed, Routine metoprolol Yes 50mg 50 mg, Unive rs succinate 10-24 Oral, ity of XL (TOPROL 13:45: DAILY, [place] XL) tablet 00 First dose Med ical 50 mg (after [place] last modificati on) on 10/24/21 at 0845, Until Discontinu ed, Routine ferrous Yes 325mg 325 mg, Univer s sulfate 10-24 Oral, BID, ity of tablet 325 01:00: First dose [place] mg 00 on [facility] 10/23/21 at Branch 2000, Until Discontinu ed, Routine sennosides Yes 8.6mg 8.6 mg, Uni vers (SENOKOT) 10-23 Oral, BID, ity of tablet 8.6 13:45: First dose [place] mg 00 on [facility] 10/23/21 at Branch 0845, Until Discontinu ed, Routine polyethylen 0 Yes 17g 17 g, Unive rs e glycol 6-20 Oral, BID, ity o f 3350 powder 13:45: First dose [place] 17 g 00 on [facility] 10/23/21 at Branch 0845, Until Discontinu ed, Routine KCL 0 Yes 40meq 40 mEq, Univers (KLOR-CON - Oral, BID, ity of M20) tablet 22:45: First dose [place] 40 mEq 00 on [facility] 10/22/21 at Branch 1745, Until Discontinu ed, Routine iron 2021- No 25mg 25 mg, IV Univers dextran 10-22 Piggyback, ity o f (INFED) 25 21:15: 21:27 ONCE, 1 Jame[place] as mg in NaCl 00 :00 dose, On Medic al 0.9% (NS) [facility] 100 mL IV 10/22/21 at piggyback 1615, Administer over 15 Minutes, 100 mL iron No 1000mg 1,000 mg, Unive rs dextran 10-22 IV ity of (INFED) 21:15: 23:03 Infusion, [place] 1,000 mg in 00 :00 ONCE, 1 Medic al NaCl 0.9% dose, On Branch (NS) 500 mL Sun IV infusion 10/22/21 at 1615, Administer over 1.5 Hours, 500 mL rivaroxaban Yes 20mg 20 mg, Univ ers (XARELTO) 10-22 Oral, ity of tablet 20 14:00: DAILY, [place] mg 00 First dose Medical on [facility] 10/22/21 at 0900, Until Discontinu ed, Routine glipiZIDE Yes 10mg 10 mg, Univer s (GLUCOTROL) 10-22 Oral, ity of tablet 10 14:00: DAILY, [place] mg 00 First dose Medical on [facility] 10/22/21 at 0900, Until Discontinu ed, Routine metoprolol No 25mg 25 mg, [facility] ers succinate 10-22 Oral, ity of XL (TOPROL 14:00: 13:35 DAILY, [place] XL) tablet 00 :11 First dose Med ical 25 mg on [facility] 10/22/21 at 0900, Until Discontinu ed, Routine sulfur 2021- No [id number] 5mL 5 mL, [facility] ers hexafluorid 10-22 Intravenou i ty of e microsphr 13:45: 13:32 s, ONCE, 1 [place] (LUMASON) 00 :00 dose, On Medica l injection 5 [place] Branch mL 10/22/21 at 0845, Routine
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 approving Restricted medication : NOELLE POWELL Sliding Yes Subcutaneo Univ ers Scale 6-19 us, AC+HS, ity of Insulin-Reg 02:00: First dose [place] ular + Fsbg 00 on [facility] Medica l Testing 10/21/21 at Branch 2100, Until Discontinu ed, Routine furosemide 0 Yes 40mg 40 mg, IV Un emliia (LASIX) 10-22 Push, ity of injection 01:00: Q12H, [place] 40 mg 00 First dose Medical (after Branch last reorder) on [facility] 10/21/21 at 2000, Until Discontinu ed, LUCHO glucagon 2021-0 Yes 1mg 1 mg, Univers (GLUCAGEN 10-21 Intramuscu ity of DIAGNOSTIC 23:10: [place], PRN, [place] KIT[place] 49 Starting Medical injection 1 on [facility] 10/21/21 at 1810, Until Discontinu ed, LUCHO, Blood Glucose < or = 70 mg/dL and patient is unable to swallow or has mental changes. acetaminoph Yes 650mg 650 mg, Un emilia en 10-21 Oral, ity of (TYLENOL) 20:19: Q6HPRN, [place] tablet 650 03 Starting Medic al mg on [facility] 10/21/21 at 1519, Until Discontinu ed, Routine, Pain (scale 1-3) furosemide 2021- No 40mg 40 mg, IV U nivers (LASIX) 10-21 Push, ity of injection 19:30: 19:16 ONCE, 1 [place] 40 [place] :00 dose, On Medical [facility] 10/21/21 at 1430, LUCHO gabapentin 2021- No 100mg Take 100 U nivers 400 mg 10-21 mg by ity of capsule 14:53: 00:00 mouth 3 [place] 43 :00 (three) Medical times [place] daily. ARIPiprazol 2021- No 30mg Take 30 mg Univers e 30 mg 10-21 by mouth ity of tablet 14:53: 00:00 daily. [place] 36 :00 [facility] Branch atorvastati 2021- No 40mg Take 40 mg Univers n 40 mg 10-21 by mouth ity of tablet 14:52: 00:00 at [place] 44 :00 bedtime. Medical Branch carvedilol 2021- No 25mg Take 25 mg Univers 25 mg 6-18 -18 by mouth 2 ity of tablet 14:52: 00:00 (two) [place] 35 :00 times Medical daily with Branch meals. losartan 2021- No 100mg Take 100 Uni vers 100 mg 6-18 06-18 mg by ity of tablet 14:52: 00:00 mouth [place] 26 :00 daily. Medical Branch metFORMIN 2021- No 1000mg Take 1,000 Univers 1,000 mg 6-18 06-18 mg by ity of tablet 14:52: 00:00 mouth 2 [place] 17 :00 (two) Medical times Branch daily with meals. XANAX 1 MG 2021- No 3 tabs Univ ers ORAL TAB -18 -18 daily ity of 14:51: 00:00 [place] 59 :00 Medical Branch furosemide 2021- No 40mg Take 40 mg Univers (LASIX) 80 10-21-18 by mouth ity of mg tablet 14:49: 00:00 daily. 40 [place] :00 mg in AM Medical and 20 mg Branch in PM. Indication s: pt stopped taking d/t incontinen ce AMIODARONE Yes [id number] TAKE 1 Univers 100 mg 4-12 TABLET BY ity of tablet 00:00: MOUTH [place] 00 EVERY DAY Medical Branch AMIODARONE 2021- No [id number] TAKE 1 Univers 100 mg 4-12 06-18 TABLET BY ity of tablet 00:00: 00:00 MOUTH [place] 00 :00 EVERY DAY Medical Branch folic acid 2021- No 1mg QD Take [address] [facility] (FOLVITE) 1 16 08-09 tablet (1 [facility] MG tablet 00:00: 00:00 mg total) Me dical 00 :00 by mouth Center daily. furosemide 2021- No 40mg QD Inject [address] [facility] [address] [facility] (LASIX) 10 3-16 08-09 mLs (40 mg [facility] k[facility] mg/mL 00:00: 00:00 total) Medical injection 00 :00 intravenou Cent er sly daily. thiamine 2021- No 100mg QD Take 1 [facility] 3-16 08-09 [facility] tablet 00:00: 00:00 (100 mg Medical 00 :00 total) by Center mouth daily. folic acid 2021- No 1mg QD Take [address] [facility] (FOLVITE) 1 07-19- tablet (1 [facility] MG tablet 00:00: 00:00 mg total) Me dical 00 :00 by mouth Center daily. furosemide 2021- No 40mg QD Inject [address] [facility] [address] [facility] (LASIX) 10 07-19 mLs (40 mg [facility]es mg/mL 00:00: 00:00 total) Medical injection 00 :00 intravenou Cent er sly daily. thiamine 2021- No 100mg QD Take 1 [facility] 07-19 [facility] tablet 00:00: 00:00 (100 mg Medical 00 :00 total) by Center mouth daily. modafiniL 2021- No 100mg QD Take [address] [facility] (PROVIGIL) 16 04-15 tablet [facility] 100 MG 00:00: 23:59 (100 mg Medical tablet 00 :00 total) by Center mouth daily for 30 days. Max Daily Amount: 100 mg modafiniL 2021- No 100mg QD Take [address] [facility] (PROVIGIL) -16 04-15 tablet [facility] 100 MG 00:00: 23:59 (100 mg Medical tablet 00 :00 total) by Center mouth daily for 30 days. Max Daily Amount: 100 mg polyethylen 2021- No 17g QD Take [address] [facility] e glycol -16 -19 by mouth [facility] (GLYCOLAX) 00:00: 23:59 daily for M edical 17 gram 00 :00 3 days. Center packet polyethylen 0 2021- No 17g QD Take [address] [facility] e glycol 3-16 03-19 by mouth [facility] (GLYCOLAX) 00:00: 23:59 daily for M edical 17 gram 00 :00 3 days. Center packet carvedilol 2021- No 12.5mg Take 12.[address] [facility] (COREG) 25 3-15 03-15 mg by [facility] MG tablet 13:11: 00:00 mouth 2 Medi oralia 01 :00 (two) Center times daily with breakfast and dinner . clopidogrel 2021- No 75mg QD Take [address] [facility] (PLAVIX) 75 3-15 03-15 by mouth Holly es mg tablet 13:11: 00:00 daily. Medic al 01 :00 [place] esomeprazol 2021- No 20mg QD Take [address] [facility] (NEXIUM) 3-15 03-15 by mouth Luke s 20 MG 13:11: 00:00 daily. Medical capsule 01 :00 [place] gabapentin 2021- No 1200mg [id number] Take 1,[address] [facility] (NEURONTIN) 3-15 03-15 [id number] mg by [facility] 600 MG 13:11: 00:00 3D mouth 3 Medical tablet 01 :00 (three) Center times daily. glipiZIDE 2021- No 10mg Q.5D Take [address] [facility] (GLUCOTROL 3-15 03-15 by mouth 2 [facility] XL) 10 MG 13:11: 00:00 (two) Medica l 24 hr 01 :00 times Center tablet daily. metFORMIN 2021- No 1000mg Q.5D Take 1,[address] [facility] (GLUMETZA) 3-15 03-15 mg by [facility] 1000 MG 13:11: 00:00 mouth 2 Medica l (MOD) 24 hr 01 :00 (two) Center tablet times daily. traZODone 2021- No 100mg Take [address] [facility] [address] [facility] (DESYREL) 3-15 03-15 mg by [facility] 100 MG 13:11: 00:00 mouth Medical tablet 01 :00 every Center night as needed for Sleep. metOLazone 2021- No 5mg QD Take [address] [facility] (ZAROXOLYN) 3-15 03-15 by mouth Holly es 5 MG tablet 13:11: 00:00 daily. Med ical 01 :00 [place] carvedilol 2021- No 12.5mg Take 12.[address] [facility] (COREG) 25 3-15 03-15 mg by [facility] MG tablet 13:11: 00:00 mouth 2 Medi oralia 01 :00 (two) Center times daily with breakfast and dinner . clopidogrel 2021- No 75mg QD Take [address] [facility] (PLAVIX) 75 -15 -15 by mouth Holly es mg tablet 13:11: 00:00 daily. Medic al 01 :00 [place] esomeprazol 2021- No 20mg QD Take [address] [facility] (NEXIUM) -15 -15 by mouth Luke s 20 MG 13:11: 00:00 daily. Medical capsule 01 :00 [place] gabapentin 2021- No 1200mg [id number] Take 1,[address] [facility] (NEURONTIN) 3-15 -15 [id number] mg by [facility] 600 MG 13:11: 00:00 3D mouth 3 Medical tablet 01 :00 (three) Center times daily. glipiZIDE 2021- No 10mg Q.5D Take [address] (GLUCOTROL -15 -15 by mouth 2 [facility] XL) 10 MG 13:11: 00:00 (two) Medica l 24 hr 01 :00 times Center tablet daily. metFORMIN 2021- No 1000mg Q.5D Take 1,[address] [facility] (GLUMETZA) 3-15 03-15 mg by [facility] 1000 MG 13:11: 00:00 mouth 2 Medica l (MOD) 24 hr 01 :00 (two) Center tablet times daily. traZODone 2021- No 100mg Take [address] [facility] [address] [facility] (DESYREL) -15 -15 mg by [facility] 100 MG 13:11: 00:00 mouth Medical tablet 01 :00 every Center night as needed for Sleep. metOLazone 2021- No 5mg QD Take [address] [facility] (ZAROXOLYN) -15 -15 by mouth Holly es 5 MG tablet 13:11: 00:00 daily. Med ical 01 :00 [place] acetaminoph Yes 650mg Take 20.[address] [facility] en 650 3-15 mLs (650 [facility] mg/20.3 mL 00:00: mg total) Me dical Soln 00 by mouth Center every 4 (four) hours as needed (> 100.0). acetaminoph Yes 650mg Take 20.[address] [facility] en 650 3-15 mLs (650 [facility] mg/20.3 mL 00:00: mg total) Me dical Soln 00 by mouth Center every 4 (four) hours as needed (> 100.0). apixaban 2021- No 5mg Q.5D Take [address] [facility] (ELIQUIS) 5 07-18 tablet (5 [facility] mg Tab 00:00: 00:00 mg total) Medic al tablet 00 :00 by mouth 2 Center (two) times daily. atorvastati 2021- No 40mg QD Take [address] [facility] n (LIPITOR) 07-18 tablet (40 L ukes 40 MG 00:00: 00:00 mg total) Medica l tablet 00 :00 by mouth Center nightly. famotidine 2021- No 20mg Take [address] [facility] (PEPCID) 20 07-18 tablet (20 L ukes MG tablet 00:00: 00:00 mg total) Me dical 00 :00 by mouth Center every 12 (twelve) hours. insulin 2021- No Use as [facility] regular 07-18 directed. Sarah (HumuLIN 00:00: 00:00 Medical R,NovoLIN 00 :00 Center R) 100 unit/mL injection ipratropium 2021- No 3mL Take [address] [facility] -albuteroL 07-18 by Sarah (DUO-NEB) 00:00: 00:00 nebulizati M edical 0.5 mg-3 00 :00 on every 4 Cente r mg(2.5 mg (four) base)/3 mL hours for nebulizer 360 days. solution metoprolol 2021- No 12.5mg Q.5D Take 0.[address] [facility] tartrate 07-18 tablets [facility] (LOPRESSOR) 00:00: 00:00 (12.5 mg M edical 25 MG 00 :00 total) by Center tablet mouth 2 (two) times daily. ondansetron 2021- No 4mg Inject [address] (ZOFRAN) 4 07-18 mLs (4 mg Holly es mg/2 mL 00:00: 00:00 total) Medical injection 00 :00 intravenou Cent er sly every 12 (twelve) hours as needed. senna-docus 2021- No 2{tbl} QD Take [address] ate 07-18- tablets by Sarah (SENOKOT S) 00:00: 00:00 mouth Medi oralia 8.6-50 mg 00 :00 nightly. Center per tablet zinc 2021- No 71g Q.5D Apply [address] [facility] oxide-ceferino 07-18 topically [facility]kel kes latum 00:00: 00:00 2 (two) Medical (CRITIC-AID 00 :00 times Center ) 20-51 % daily. Pste topical paste insulin 2021- No 35U Q.5D Inject [address] [facility] glargine 07-18- Units Sarah (LANTUS, 00:00: 00:00 subcutaneo Me dical SEMGLEE) 00 :00 usly 2 Center 100 unit/mL (two) injection times daily Use as directed. apixaban 2021- No 5mg Q.5D Take [address] [facility] (ELIQUIS) 5 07-18 tablet (5 [facility] kes mg Tab 00:00: 00:00 mg total) Medic al tablet 00 :00 by mouth 2 Center (two) times daily. atorvastati 2021- No 40mg QD Take [address] [facility] n (LIPITOR) 07-18 tablet (40 L ukes 40 MG 00:00: 00:00 mg total) Medica l tablet 00 :00 by mouth Center nightly. famotidine 2021- No 20mg Take [address] [facility] (PEPCID) 20 07-18- tablet (20 L ukes MG tablet 00:00: 00:00 mg total) Me dical 00 :00 by mouth Center every 12 (twelve) hours. insulin 2021- No Use as [facility] regular 07-18 directed. Sarah (HumuLIN 00:00: 00:00 Medical R,NovoLIN 00 :00 Center R) 100 unit/mL injection ipratropium 2021- No 3mL Take [address] [facility] -albuteroL 07-18 by Sarah (DUO-NEB) 00:00: 00:00 nebulizati M edical 0.5 mg-3 00 :00 on every 4 Cente r mg(2.5 mg (four) base)/3 mL hours for nebulizer 360 days. solution metoprolol 2021- No 12.5mg Q.5D Take 0.[address] [facility] tartrate -15 -09 tablets [facility] (LOPRESSOR) 00:00: 00:00 (12.5 mg M edical 25 MG 00 :00 total) by Center tablet mouth 2 (two) times daily. ondansetron 2021- No 4mg Inject [address] (ZOFRAN) 4 -15 -09 mLs (4 mg Holly es mg/2 mL 00:00: 00:00 total) Medical injection 00 :00 intravenou Cent er sly every 12 (twelve) hours as needed. senna-docus 2021- No 2{tbl} QD Take [address] ate -15 - tablets by [facility] (SENOKOT S) 00:00: 00:00 mouth Medi oralia 8.6-50 mg 00 :00 nightly. Center per tablet zinc 2021- No 71g Q.5D Apply [address] [facility] oxide-ceferino 07-18- topically [facility]kel kes latum 00:00: 00:00 2 (two) Medical (CRITIC-AID 00 :00 times Center ) 20-51 % daily. Pste topical paste insulin 2021- No 35U Q.5D Inject [address] [facility] [address] glargine -15 - Units [facility] (LANTUS, 00:00: 00:00 subcutaneo Me dical SEMGLEE) 00 :00 usly 2 Center 100 unit/mL (two) injection times daily Use as directed. furosemide 2020-05 Yes 40mg Take 40 mg [...] mouth 2 ity of tablet 13:23: (two) [place] 23 times Medical daily with Branch meals. carvedilol 2020-05 Yes 25mg Take 25 mg U nivers 25 mg 0-21 by mouth 2 ity of tablet 13:23: (two) [place] 23 times Medical daily with Branch meals. carvedilol 2020-05 Yes 25mg Take 25 mg U nivers 25 mg 0-21 by mouth 2 ity of tablet 13:23: (two) [place] 23 times Medical daily with Branch meals. carvedilol 2020-05 Yes 25mg Take 25 mg U nivers 25 mg 0-21 by mouth 2 ity of tablet 13:23: (two) [place] 23 times Medical daily with Branch meals. carvedilol 2020-05 Yes 25mg Take 25 mg U nivers 25 mg 0-21 by mouth 2 ity of tablet 13:23: (two) [place] 23 times Medical daily with Branch meals. carvedilol 2020-05 Yes 25mg Take 25 mg U nivers 25 mg 0-21 by mouth 2 ity of tablet 13:23: (two) [place] 23 times Medical daily with Branch meals. carvedilol 2020-05 Yes 25mg Take 25 mg U nivers 25 mg 0-21 by mouth 2 ity of tablet 13:23: (two) [place] 23 times Medical daily with Branch meals. rivaroxaban 2020-05 Yes Take by Uni vers 20 mg 0-21 mouth ity of tablet 13:23: daily. [address] rivaroxaban 2020-05 Yes Take by Uni vers 20 mg 0-21 mouth ity of tablet 13:23: daily. [address] rivaroxaban 2020-05 Yes Take by Uni vers 20 mg 0-21 mouth ity of tablet 13:23: daily. [address] rivaroxaban 2020-05 Yes Take by Uni vers 20 mg 0-21 mouth ity of tablet 13:23: daily. [address] rivaroxaban 2020-05 Yes Take by Uni vers 20 mg 0-21 mouth ity of tablet 13:23: daily. [address] rivaroxaban 2020-05 Yes Take by Uni vers 20 mg 0-21 mouth ity of tablet 13:23: daily. [address] rivaroxaban 2020-05 Yes Take by Uni vers 20 mg 0-21 mouth ity of tablet 13:23: daily. [address] losartan 2020-05 Yes 100mg Take 100 Univ ers 100 mg 0-21 mg by ity of tablet 13:23: mouth [place] 14 daily. [facility] losartan 2020-05 Yes 100mg Take 100 Univ ers 100 mg 0-21 mg by ity of tablet 13:23: mouth [place] 14 daily. [facility] losartan 2020-05 Yes 100mg Take 100 Univ ers 100 mg 0-21 mg by ity of tablet 13:23: mouth [place] 14 daily. [facility] losartan 2020-05 Yes 100mg Take 100 Univ [...] by mouth ity of tablet 13:23: at [place] 08 bedtime. Medical Branch atorvastati 2020-05 Yes 40mg Take 40 mg Univers n 40 mg 0-21 by mouth ity of tablet 13:23: at [place] 08 bedtime. Medical Branch atorvastati 2020-05 Yes 40mg Take 40 mg Univers n 40 mg 0-21 by mouth ity of tablet 13:23: at [place] 08 bedtime. Medical Branch atorvastati 2020-05 Yes 40mg Take 40 mg Univers n 40 mg 0-21 by mouth ity of tablet 13:23: at [place] 08 bedtime. Medical Branch atorvastati 2020-05 Yes 40mg Take 40 mg Univers n 40 mg 0-21 by mouth ity of tablet 13:23: at [place] 08 bedtime. Medical Branch atorvastati 2020-05 Yes 40mg Take 40 mg Univers n 40 mg 0-21 by mouth ity of tablet 13:23: at [place] 08 bedtime. Medical Branch aspirin 81 2020-05 Yes 81mg Take 81 mg U nivers mg EC 0-21 by mouth ity of tablet 13:23: daily. [place] [address] Medical Branch aspirin 81 2020-05 Yes 81mg Take 81 mg U nivers mg EC 0-21 by mouth ity of tablet 13:23: daily. [place] [address] Medical Branch aspirin 81 2020-05 Yes 81mg Take 81 mg U nivers mg EC 0-21 by mouth ity of tablet 13:23: daily. [place] [address] Medical Branch aspirin 81 2020-05 Yes 81mg [...] ity of tablet 13:23: daily. Medical Branch amiodarone 2020-05 Yes 100mg [...] mouth [place] 00 daily. Medical Branch amiodarone 2020-05- No 100mg Take 1 Uni vers 100 mg 0-05 04-12 tablet by ity of tablet 00:00: 00:00 mouth [place] 00 :00 daily. Medical Branch metFORMIN Yes 1000mg Take 1,000 Univers 1,000 mg 9-28 mg by ity of tablet 11:28: mouth 2 [place] (two) Medical times Branch daily with meals. ARIPiprazol Yes 30mg Take 30 mg Univers e 30 mg 9-28 by mouth ity of tablet 11:28: daily. [place] [address] Medical Branch glipiZIDE 2021-0 Yes 10mg Take 10 mg Un emilia 10 mg 9-28 by mouth ity of tablet 11:28: daily. [address] gabapentin 2020-0 Yes 1200mg Take 1,200 Univers 400 mg 9-28 mg by ity of capsule 11:28: mouth 3 [place] [address] (three) Medical times Branch daily. metFORMIN 2021-0 Yes 1000mg Take 1,000 Univers 1,000 mg 9-28 mg by ity of tablet 11:28: mouth 2 [place] [address] (two) Medical times [place] daily with meals. ARIPiprazol 2021-0 Yes 30mg Take 30 mg Univers e 30 mg 9-28 by mouth ity of tablet 11:28: daily. [address] glipiZIDE 2020-0 Yes 10mg Take 10 mg Un emilia 10 mg 9-28 by mouth ity of tablet 11:28: daily. [address] gabapentin 2020-0 Yes 1200mg Take 1,200 Univers 400 mg 9-28 mg by ity of capsule 11:28: mouth 3 [place] [address] (three) Medical times [place] daily. metFORMIN 1-0 Yes 1000mg Take 1,000 Univers 1,000 mg 9-28 mg by ity of tablet 11:28: mouth 2 [place] [address] (two) Medical times [place] daily with meals. ARIPiprazol 1-0 Yes 30mg Take 30 mg Univers e 30 mg 9-28 by mouth ity of tablet 11:28: daily. [address] glipiZIDE 1-0 Yes 10mg Take 10 mg Un emilia 10 mg 9-28 by mouth ity of tablet 11:28: daily. [address] gabapentin 1-0 Yes 1200mg Take 1,200 Univers 400 mg 9-28 mg by ity of capsule 11:28: mouth 3 [place] [address] (three) Medical times [place] daily. metFORMIN 2021-0 Yes 1000mg Take 1,000 Univers 1,000 mg 9-28 mg by ity of tablet 11:28: mouth 2 [place] [address] (two) Medical times [place] daily with meals. ARIPiprazol 2021-0 Yes 30mg Take 30 mg Univers e 30 mg 9-28 by mouth ity of tablet 11:28: daily. [address] glipiZIDE 2021-0 Yes 10mg Take 10 mg Un emilia 10 mg 9-28 by mouth ity of tablet 11:28: daily. [address] gabapentin 2021-0 Yes 1200mg Take 1,200 Univers 400 mg 9-28 mg by ity of capsule 11:28: mouth 3 [place] [address] (three) Medical times [place] daily. metFORMIN 2021-0 Yes 1000mg Take 1,000 Univers 1,000 mg 9-28 mg by ity of tablet 11:28: mouth 2 [place] [address] (two) Medical times [place] daily with meals. ARIPiprazol 2021-0 Yes 30mg Take 30 mg Univers e 30 mg 9-28 by mouth ity of tablet 11:28: daily. [address] glipiZIDE 1-0 Yes 10mg Take 10 mg Un emilia 10 mg 9-28 by mouth ity of tablet 11:28: daily. [address] gabapentin 1-0 Yes 1200mg Take 1,200 Univers 400 mg 9-28 mg by ity of capsule 11:28: mouth 3 [place] [address] (three) Medical times [place] daily. metFORMIN 2021-0 Yes 1000mg Take 1,000 Univers 1,000 mg 9-28 mg by ity of tablet 11:28: mouth 2 [place] [address] [facility] times [place] daily with meals. ARIPiprazol 1-0 Yes 30mg Take 30 mg Univers e 30 mg 9-28 by mouth ity of tablet 11:28: daily. [address] glipiZIDE 1-0 Yes 10mg Take 10 mg Un emilia 10 mg 9-28 by mouth ity of tablet 11:28: daily. [address] gabapentin 1-0 Yes 1200mg Take 1,200 Univers 400 mg 9-28 mg by ity of capsule 11:28: mouth 3 [place] [address] (three) Medical times [place] daily. metFORMIN 2021-0 Yes 1000mg Take 1,000 Univers 1,000 mg 9-28 mg by ity of tablet 11:28: mouth 2 [place] [address] (two) Medical times [place] daily with meals. ARIPiprazol 2021-0 Yes 30mg Take 30 mg Univers e 30 mg 9-28 by mouth ity of tablet 11:28: daily. [address] glipiZIDE 2021-0 Yes 10mg Take 10 mg Un emilia 10 mg 9-28 by mouth ity of tablet 11:28: daily. [address] gabapentin 2021-0 Yes 1200mg Take 1,200 Univers 400 mg 9-28 mg by ity of capsule 11:28: mouth 3 [place] 41 (three) Medical times Branch daily. XANAX 1 MG 2020-0 Yes 3 tabs Unive rs ORAL TAB 8-12 daily ity of 09:33: [place] [address] Medical [place] XANAX 1 MG 2020-0 Yes 3 tabs Unive rs ORAL TAB 8-12 daily ity of 09:33: [address] XANAX 1 MG 2020-0 Yes 3 tabs Unive rs ORAL TAB 8-12 daily ity of 09:33: [place] [address] Medical Branch XANAX 1 MG 2020-0 Yes 3 tabs Unive rs ORAL TAB 8-12 daily ity of 09:33: [place] [address] Medical [place] XANAX 1 MG 2020-0 Yes 3 tabs Unive rs ORAL TAB 8-12 daily ity of 09:33: [address] XANAX 1 MG 2020-0 Yes 3 tabs Unive rs ORAL TAB 8-12 daily ity of 09:33: [address] XANAX 1 MG 2020-0 Yes 3 tabs Unive rs ORAL TAB 8-12 daily ity of 09:33: [address] carvedilol Yes 12.5mg Take 12.[address] [facility] (COREG) 25 9-20 mg by [facility] MG tablet 10:15: mouth 2 Medic al 53 (two) Center times daily with breakfast and dinner . clopidogrel Yes 75mg QD Take [address] [facility] (PLAVIX) 75 9-20 by mouth Luke s mg tablet 10:15: daily. Medica l [address] [place] [address] aspirin 81 Yes 81mg QD Take [address] MG EC 9-20 by mouth [facility] tablet 10:15: daily. Medical Center esomeprazol Yes 20mg QD Take [address] [facility] (NEXIUM) 9-20 by mouth [facility] 20 MG 10:15: daily. Medical capsule 53 Center gabapentin Yes 1200mg Q.[id number] Take 1,[address] (NEURONTIN) 9-20 [id number] mg by L ukes 600 MG 10:15: 3D mouth 3 Medical tablet 53 (three) Center times daily. glipiZIDE Yes 10mg Q.5D Take [address] [facility] (GLUCOTROL 9-20 by mouth 2 Holly es XL) 10 MG 10:15: (two) Medical 24 hr 53 times Center tablet daily. metFORMIN 2018-0 Yes 1000mg Q.5D Take 1,[address] (GLUMETZA) 9-20 mg by [facility] 1000 MG 10:15: mouth 2 Medical (MOD) 24 hr 53 (two) Center tablet times daily. traZODone 2018-0 Yes 100mg Take [address] [facility] (DESYREL) 9-20 mg by [facility] 100 MG 10:15: mouth Medical tablet 53 every Center night as needed for Sleep. metOLazone 2018-0 Yes 5mg QD Take [address] [facility] (ZAROXOLYN) 9-20 by mouth Luke s 5 MG tablet 10:15: daily. Medi oralia 53 Center carvedilol 2018-0 Yes 12.5mg Take 12.[address] [facility] (COREG) 25 9-20 mg by [facility] MG tablet 10:15: mouth 2 Medic al 53 (two) Center times daily with breakfast and dinner . clopidogrel 2018-0 Yes 75mg QD Take [address] [facility] (PLAVIX) 75 9-20 by mouth Luke s mg tablet 10:15: daily. Medica l 53 Center aspirin 81 2018-0 Yes 81mg QD Take [address] MG EC 9-20 by mouth [facility] tablet 10:15: daily. Medical 53 Center esomeprazol 2018-0 Yes 20mg QD Take [address] [facility] (NEXIUM) 9-20 by mouth [facility] 20 MG 10:15: daily. Medical capsule 53 Center gabapentin 2018-0 Yes 1200mg Q.[id number] Take 1,[address] (NEURONTIN) 9-20 [id number] mg by L ukes 600 MG 10:15: 3D mouth 3 Medical tablet 53 (three) Center times daily. glipiZIDE 2018-0 Yes 10mg Q.5D Take [address] [facility] [address] [facility] (GLUCOTROL 9-20 by mouth 2 Holly es XL) 10 MG 10:15: (two) Medical 24 hr 53 times Center tablet daily. metFORMIN 2018-0 Yes 1000mg Q.5D Take 1,[address] (GLUMETZA) 9-20 mg by [facility] 1000 MG 10:15: mouth 2 Medical (MOD) 24 hr 53 (two) Center tablet times daily. traZODone 2018-0 Yes 100mg Take [address] [facility] (DESYREL) 9-20 mg by [facility] 100 MG 10:15: mouth Medical tablet 53 every Center night as needed for Sleep. metOLazone 2018- Yes 5mg QD Take [address] [facility] (ZAROXOLYN) 9-20 by mouth Luke s 5 MG tablet 10:15: daily. Medi oralia 53 Center furosemide Yes Resume [facility] (LASIX[facility] 80 7-17 taking as Luke s MG tablet 00:00: you were Medi oralia 00 prior to Center admission. polyethylen Yes Use daily [facility] e glycol 7-17 per [facility] (GLYCOLAX) 00:00: package Medi oralia 17 gram 00 instructio Center packet ns. Is over the counter. furosemide Yes Resume [facility] (LASIX) 80 7-17 taking as Luke s MG tablet 00:00: you were Medi oralia 00 prior to Center admission. polyethylen Yes Use daily [facility] e glycol 7-17 per [facility] (GLYCOLAX) 00:00: package Medi oralia 17 gram 00 instructio Center packet ns. Is over the counter. furosemide 2021- No Resume [facility] (LASIX) 80 7-17 03-15 taking as Holly es MG tablet 00:00: 00:00 you were Med ical 00 :00 prior to Center admission. polyethylen 2021- No Use daily [facility] e glycol 7-17 03-15 per [facility] (GLYCOLAX) 00:00: 00:00 package Med ical 17 gram 00 :00 instructio Center packet ns. Is over the counter. furosemide 2021- No Resume [facility] (LASIX) 80 7-17 03-15 taking as Holly es MG tablet 00:00: 00:00 you were Med ical 00 :00 prior to Center admission. polyethylen 2021- No Use daily [facility] e glycol 7-17 03-15 per [facility] (GLYCOLAX) 00:00: 00:00 package Med ical 17 gram 00 :00 instructio Center packet ns. Is over the counter. Immunizations Ordered Filled Immunization Date Status Comments [facility] Immunization Name Name SARS-COV-2 COVID-19 2020-07-23 Completed Unive rsity of PFIZER VACCINE 00:00:00 [facility] SARS-COV-2 COVID-19 2020-07-23 Completed Unive rsity of PFIZER VACCINE 00:00:00 [facility] SARS-COV-2 COVID-19 2020-07-23 Completed Unive rsity of PFIZER VACCINE 00:00:00 [facility] SARS-COV-2 COVID-19 2020-07-23 Completed Unive rsity of PFIZER VACCINE 00:00:00 [facility] SARS-COV-2 COVID-19 2020-07-23 Completed Unive rsity of PFIZER VACCINE 00:00:00 [facility] SARS-COV-2 COVID-19 2020-07-23 Completed Unive rsity of PFIZER VACCINE 00:00:00 [facility] SARS-COV-2 COVID-19 2020-07-23 Completed Unive rsity of PFIZER VACCINE 00:00:00 [facility] SARS-COV-2 COVID-19 2020-07-23 Completed Unive rsity of PFIZER VACCINE 00:00:00 [facility] SARS-COV-2 COVID-19 2020-07-23 Completed Unive rsity of PFIZER VACCINE 00:00:00 [facility] SARS-COV-2 COVID-19 2020-07-23 Completed Unive rsity of PFIZER VACCINE 00:00:00 [facility] SARS-COV-2 COVID-19 2020-07-02 Completed Unive rsity of PFIZER VACCINE 00:00:00 [facility] SARS-COV-2 COVID-19 2020-07-02 Completed Unive rsity of PFIZER VACCINE 00:00:00 [facility] Branch SARS-COV-2 COVID-19 2020-07-02 Completed Unive [facility]ity [facility] PFIZER VACCINE 00:[facility]00 [facility] SARS-COV-2 COVID-19 2020-07-02 Completed [facility]ive [facility] PFIZER VACCINE 00:00:00 [facility] SARS-COV-2 COVID-19 2020-07-02 Completed Unive rsity of PFIZER VACCINE 00:00:00 [facility] SARS-COV-2 COVID-19 2020-07-02 Completed Unive rsity of PFIZER VACCINE 00:00:00 [facility] SARS-COV-2 COVID-19 2020-07-02 Completed Unive rsity of PFIZER VACCINE 00:00:00 [facility] SARS-COV-2 COVID-19 2020-07-02 Completed Unive rsity of PFIZER VACCINE 00:00:00 [facility] SARS-COV-2 COVID-19 2020-07-02 Completed Unive rsity of PFIZER VACCINE 00:00:00 [facility] SARS-COV-2 COVID-19 2020-07-02 Completed Unive rsity of PFIZER VACCINE 00:00:00 [facility] Vital Signs Vital Name Observation Time Observation Value Comments Source WEIGHT 2021-12-11 06:00:00 100.971 kg WEIGHT 2021-12-10 04:25:00 102 kg WEIGHT 2021-12-09 06:00:00 103 kg WEIGHT 2021-12-08 05:46:00 107.14 kg WEIGHT 2021-12-07 05:45:00 103.42 kg WEIGHT 2021-12-06 04:00:00 99.8 kg HEIGHT 2021-12-05 18:51:00 182.9 cm WEIGHT 2021-12-05 18:51:00 110.4 kg WEIGHT 2021-12-11 06:00:00 100.971 kg WEIGHT 2021-12-10 04:25:00 102 kg WEIGHT 2021-12-09 06:00:00 103 kg WEIGHT 2021-12-08 05:46:00 107.14 kg WEIGHT 2021-12-07 05:45:00 103.42 kg WEIGHT 2021-12-06 04:00:00 99.8 kg HEIGHT 2021-12-05 18:51:00 182.9 cm WEIGHT 2021-12-05 18:51:00 110.4 kg WEIGHT 2021-12-11 06:00:00 100.971 kg WEIGHT 2021-12-10 04:25:00 102 kg WEIGHT 2021-12-09 06:00:00 103 kg WEIGHT 2021-12-08 05:46:00 107.14 kg WEIGHT 2021-12-07 05:45:00 103.42 kg WEIGHT 2021-12-06 04:00:00 99.8 kg HEIGHT 2021-12-05 18:51:00 182.9 cm WEIGHT 2021-12-05 18:51:00 110.4 kg Systolic blood 2021-10-27 16:48:00 112 mm[Hg] Univer sity of pressure [facility] Diastolic blood 2021-10-27 16:48:00 68 mm[Hg] Unive rsity of pressure [facility] Heart rate 2021-10-27 16:48:00 74 /[facility] 2021-10-27 16:48:00 36 Zaria [facility] 2021-10-27 16:48:00 16 /min Univ [facility] Oxygen saturation in 2021-10-27 16:48:00 98 /min [facility] Arterial blood by [facility] Pulse oximetry [place] Body weight 2021-10-25 08:13:00 106.913 kg [facility] BMI 2021-10-25 08:13:00 31.97 kg/m2 [facility] Body height 2021-10-21 15:50:16 182.9 cm [facility] WEIGHT 2021-07-17 05:58:00 128.5 kg WEIGHT 2021-07-16 07:00:00 131 kg WEIGHT 2021-07-15 06:00:00 129 kg WEIGHT 2021-07-14 06:00:00 129 kg WEIGHT 2021-07-13 06:00:00 128.5 kg WEIGHT 2021-07-12 06:00:00 126 kg WEIGHT 2021-07-11 06:00:00 129.5 kg WEIGHT 2021-07-10 06:00:00 122.5 kg WEIGHT 2021-07-09 06:00:00 116.5 kg WEIGHT 2021-07-08 05:20:00 122.5 kg HEIGHT 2021-07-06 17:00:00 182.9 cm WEIGHT 2021-06-28 06:00:00 131.2 kg WEIGHT 2021-06-10 20:00:00 131 kg WEIGHT 2021-07-17 05:58:00 128.5 kg WEIGHT 2021-07-16 07:00:00 131 kg WEIGHT 2021-07-15 06:00:00 129 kg WEIGHT 2021-07-14 06:00:00 129 kg WEIGHT 2021-07-13 06:00:00 128.5 kg WEIGHT 2021-07-12 06:00:00 126 kg WEIGHT 2021-07-11 06:00:00 129.5 kg WEIGHT 2021-07-10 06:00:00 122.5 kg WEIGHT 2021-07-09 06:00:00 116.5 kg WEIGHT 2021-07-08 05:20:00 122.5 kg HEIGHT 2021-07-06 17:00:00 182.9 cm WEIGHT 2021-06-28 06:00:00 131.2 kg WEIGHT 2021-06-10 20:00:00 131 kg WEIGHT 2021-07-17 05:58:00 128.5 kg WEIGHT 2021-07-16 07:00:00 131 kg WEIGHT 2021-07-15 06:00:00 129 kg WEIGHT 2021-07-14 06:00:00 129 kg WEIGHT 2021-07-13 06:00:00 128.5 kg WEIGHT 2021-07-12 06:00:00 126 kg WEIGHT 2021-07-11 06:00:00 129.5 kg WEIGHT 2021-07-10 06:00:00 122.5 kg WEIGHT 2021-07-09 06:00:00 116.5 kg WEIGHT 2021-07-08 05:20:00 122.5 kg HEIGHT 2021-07-06 17:00:00 182.9 cm WEIGHT 2021-06-28 06:00:00 131.2 kg WEIGHT 2021-06-10 20:00:00 131 kg Systolic blood 2021-02-23 18:11:00 116 mm[Hg] Univer sity of pressure [facility] Diastolic blood 2021-02-23 18:11:00 76 mm[Hg] Unive rsity of pressure [facility] Heart rate 2021-02-23 18:11:00 76 /min [facility] Body weight 2021-02-23 18:11:00 117.028 kg [facility] BMI 2021-02-23 18:11:00 34.99 kg/m2 [facility] Oxygen saturation in 2021-02-23 18:11:00 96 /min [facility] Pulse oximetry [facility] Systolic blood 2021-12-12 16:31:00 135 mm[Hg] [facility] Diastolic blood 2021-12-12 16:31:00 60 mm[Hg] [facility] Heart rate 2021-12-12 16:31:00 60 /min [facility] Body temperature 2021-12-12 16:31:00 36.11 Zaria [facility] Respiratory rate 2021-12-12 16:31:00 19 /min [facility] Oxygen saturation in 2021-12-12 16:31:00 95 /min [facility] Arterial blood by Medical Ce nter Pulse oximetry Body weight 2021-12-11 06:00:00 100.971 kg [facility] BMI 2021-12-11 06:00:00 30.19 kg/m2 [facility] Body height 2021-12-05 18:51:00 182.9 cm [facility] Procedures Procedure Date / Time Performing Clinician Source Performed REFERRAL- REQUEST/RESPONSE 2021-12-16 05:01:00 Doctor Unassigned , [facility] POCT-GLUCOSE METER 2021-12-12 12:40:00 Gonzalez Raymond [facility] POCT-GLUCOSE METER 2021-12-12 06:06:00 Gonzalez Raymond [facility] POCT-GLUCOSE METER 2021-12-11 19:42:00 Gonzalez Raymond [facility] POCT-GLUCOSE METER 2021-12-11 17:19:00 Gonzalez Raymond [facility] POCT-GLUCOSE METER 2021-12-11 12:05:00 Gonzalez Raymond [facility] POCT-GLUCOSE METER 2021-12-11 08:47:00 Gonzalez Raymond [facility] POCT-GLUCOSE METER 2021-12-11 06:11:00 Gonzalez Raymond [facility] POCT-GLUCOSE METER 2021-12-10 20:47:00 Gonzalez Raymond [facility] POCT-GLUCOSE METER 2021-12-10 17:46:00 Gonzalez Raymond [facility] POCT-GLUCOSE METER 2021-12-10 11:16:00 NikhilGonzalez [facility] POCT-GLUCOSE METER 2021-12-10 06:00:00 NikhilGonzalez [facility] CBC W/PLT COUNT & AUTO 2021-12-10 05:57:00 Gonzalez Raymond [facility] BASIC METABOLIC PANEL 2021-12-10 05:57:00 Gonzalez Raymond [facility] MAGNESIUM 2021-12-10 05:57:00 NinajacksonGonzalez [facility] PHOSPHORUS 2021-12-10 05:57:00 Gonzalez Raymond [facility] CBC W/PLT COUNT & AUTO 2021-12-10 05:57:00 Gonzalez Raymond [facility] POCT-GLUCOSE METER 2021-12-09 21:10:00 Gonzalez Raymond [facility] POCT-GLUCOSE METER 2021-12-09 17:29:00 NinajacksonGonzalez [facility] POCT-GLUCOSE METER 2021-12-09 11:15:00 [facility] CBC W/PLT COUNT & AUTO 2021-12-09 03:15:00 Gonzalez Raymond [facility] BASIC METABOLIC PANEL 2021-12-09 03:15:00 Gonzalez Raymond [facility] MAGNESIUM 2021-12-09 03:15:00 Gonzalez Raymond [facility] PHOSPHORUS 2021-12-09 03:15:00 [facility] CBC W/PLT COUNT & AUTO 2021-12-09 03:15:00 [facility] POCT-GLUCOSE METER 2021-12-08 23:31:00 Gonzalez Raymond [facility] POCT-GLUCOSE METER 2021-12-08 20:45:[address] NinaG[address] [facility] [address] BRAIN WITHOUT IV 2021-12-08 18:54:[address] [facility] POCT-GLUCOSE METER 2021-12-08 12:10:00 Gonzalez Raymond [facility] BASIC METABOLIC PANEL 2021-12-08 04:05:00 Samina [facility] CBC W/PLT COUNT & AUTO 2021-12-08 04:05:00 [facility]ina [facility] MAGNESIUM 2021-12-08 04:05:00 [facility], [facility] PHOSPHORUS 2021-12-08 04:05:00 [place], [facility] CBC W/PLT COUNT & AUTO 2021-12-08 04:05:00 Jun[facility]formerly [facility] XR CHEST 1 VIEW PORTABLE / 2021-12-07 21:56:00 Chip Blount [facility] CARDIAC ELECTROPHYSIOLOGY 2021-12-07 17:55:[address] [facility] STUDY, WITH CARDIAC [facility] PACEMAKER INSERTION POCT-GLUCOSE METER 2021-12-07 16:49:00 Quinn French [facility] XR CHEST 1 VIEW PORTABLE / 2021-12-07 09:44:00 Quinn French [facility] BASIC METABOLIC PANEL 2021-12-07 04:14:00 [facility] CBC W/PLT COUNT & AUTO 2021-12-07 04:14:00 Samina [facility] MAGNESIUM 2021-12-07 04:14[facility] 2021-12-07 04:14:00 [place], [facility] TSH/FREE T4 IF INDICATED 2021-12-07 04:14:00 Gonzalez Raymond [facility] HEMOGLOBIN A1C 2021-12-07 04:14:00 Gonzalez Raymond [facility] CBC W/PLT COUNT & AUTO 2021-12-07 04:14:00 Samina [facility] ECG 12-LEAD 2021-12-06 19:06:46 Unknown, Hl7 Doctor [facility] ECG 12-LEAD 2021-12-06 19:06:46 Unknown, Hl7 Doctor [facility] POCT-GLUCOSE METER 2021-12-06 17:17:00 Gillian [facility] POCT-GLUCOSE METER 2021-12-06 11:51:00 Gillian, [facility] LIMITED 2D ECHOCARDIOGRAM 2021-12-06 10:55:14 Gillian [facility] ECHO W/ CONTRAST LIMITED 2021-12-06 10:43:20 Davon Webber [facility] CONT WAVE PULSED DOPPLER 2021-12-06 10:39:43 Gillian [facility] BASIC METABOLIC PANEL 2021-12-06 04:10:00 Samina [facility] CBC W/PLT COUNT & AUTO 2021-12-06 04:10:00 Samina [facility] MAGNESIUM 2021-12-06 04:10:00 OnLeidy morales [facility] CBC W/PLT COUNT & AUTO 2021-12-06 04:10:00 Samina [facility] XR CHEST 1 VIEW PORTABLE / 2021-12-05 23:55:00 Samina [facility] HEMOGLOBIN AND HEMATOCRIT 2021-12-05 23:27:00 Samina [facility] POCT-GLUCOSE METER 2021-12-05 21:25:00 Gillian [facility] COMPREHENSIVE METABOLIC 2021-12-05 20:31:00 Samina [facility] MAGNESIUM 2021-12-05 20:31:00 Samina [facility] PHOSPHORUS 2021-12-05 20:31:00 Samina [facility] HEPATIC FUNCTION PANEL 2021-12-05 20:31:00 Samina [facility] PROTHROMBIN TIME/INR 2021-12-05 20:31:[address] [facility] ARRYTHMIA IMPLANT REPORT - 2021-12-05 00:00:00 Provider, Default [facility] CARDIAC CATH REPORT - SCAN 2021-12-05 00:00:00 Provider, Default [facility] EKG-SCANNED 2021-12-05 00:00:00 Provider, Default [facility] POCT GLUCOSE (AUTOMATED) 2021-10-26 00:47:00 Jordon Buckley [facility] POCT GLUCOSE (AUTOMATED) 2021-10-25 22:02:00 Jordon Buckley [facility] POCT GLUCOSE (AUTOMATED) 2021-10-25 16:47:00 Jordon Buckley [facility] POCT GLUCOSE (AUTOMATED) 2021-10-25 12:38:00 Jordon Buckley [facility] BASIC METABOLIC PANEL (NA, 2021-10-25 08:15:00 Cherelle Pratt [facility] K, CL, CO2, GLUCOSE, BUN, Medica l Branch CREATININE, CA) CBC WITH DIFF 2021-10-25 08:15:00 Cherelle Pratt [facility] N-TERMINAL PRO-BNP 2021-10-25 08:15:00 Cherelle Pratt [facility] POCT GLUCOSE (AUTOMATED) 2021-10-25 01:56:00 Jordon Buckley [facility] POCT GLUCOSE (AUTOMATED) 2021-10-24 21:47:00 Jordon Buckley [facility] POCT GLUCOSE (AUTOMATED) 2021-10-24 16:45:00 [facility]) 2021-10-24 12:45:00 Jordon Buckley [facility] PHOSPHORUS 2021-10-24 08:19:00 Jordon Buckley [facility] MAGNESIUM 2021-10-24 08:19:00 Abdullah, [facility] BASIC METABOLIC PANEL (NA, 2021-10-24 08:19:00 Jordon Buckley [facility] K, CL, CO2, GLUCOSE, BUN, Medica l Branch CREATININE, CA) CBC WITH DIFF 2021-10-24 08:19:00 Marcio [facility] N-TERMINAL PRO-BNP 2021-10-24 08:19:00 Cailin Almonte [facility] POCT GLUCOSE (AUTOMATED) 2021-10-24 00:55:00 Jordon Buckley [facility] POCT GLUCOSE (AUTOMATED) 2021-10-23 22:04:00 Jordon Buckley [facility] BLOOD CULTURE SCREEN 2021-10-23 18:55:00 Jordon Buckley [facility] POCT GLUCOSE (AUTOMATED) 2021-10-23 16:41:00 Jordon Buckley [facility] POCT GLUCOSE (AUTOMATED) 2021-10-23 12:33:00 Jordon Buckley [facility] PHOSPHORUS 2021-10-23 08:31:00 Marcio [facility] MAGNESIUM 2021-10-23 08:31:00 Marcio [facility] TROPONIN I 2021-10-23 08:31:00 Cailin Almonte [facility] BASIC METABOLIC PANEL (NA, 2021-10-23 08:31:00 [facility], CL, CO2, GLUCOSE, BUN, Medica l Branch CREATININE, CA) CBC WITH DIFF 2021-10-23 08:31:00 Leatha [facility] N-TERMINAL PRO-BNP 2021-10-23 08:31:00 Cailin Almonte [facility] POCT GLUCOSE (AUTOMATED) 2021-10-23 01:45:00 Jordon Buckley [facility] POCT GLUCOSE (AUTOMATED) 2021-10-22 22:05:00 Jordon Buckley [facility] POCT GLUCOSE (AUTOMATED) 2021-10-22 17:00:00 Jordon Buckley [facility] TRANSTHORACIC ECHO (TTE) 2021-10-22 13:46:00 Britton Zhang [facility] COMPLETE W/ CONTRAST [facility] POCT GLUCOSE (AUTOMATED) 2021-10-22 13:01:00 Jordon Buckley [facility] MAGNESIUM 2021-10-22 08:06:00 Jordon Buckley [facility] BASIC METABOLIC PANEL (NA, 2021-10-22 08:06:00 Jordon Buckley [facility] K, CL, CO2, GLUCOSE, BUN, Medica l Branch CREATININE, [place]) LIPID PANEL (21010)(TOTAL 2021-10-22 08:06:00 Britton Zhang [facility] CHOLESTEROL, TRIGLYCERIDES, [facility] oralia Branch HDL) CBC WITH DIFF 2021-10-22 08:06:00 Jordon Buckley [facility] N-TERMINAL PRO-BNP 2021-10-22 08:06:00 Britton Zhang [facility] POCT GLUCOSE (AUTOMATED) 2021-10-22 01:07:00 Jordon Buckley [facility] PHOSPHORUS 2021-10-21 22:08:00 Jordon Buckley [facility] VITAMIN B12, LEVEL 2021-10-21 22:08:00 [facility] 2021-10-21 22:08:00 Jordon Buckley [facility] TROPONIN I 2021-10-21 22:08:00 Jordon Buckley [facility] VITAMIN D, 25-OH 2021-10-21 22:08:00 Jordon Buckley [facility] XR CHEST 1 VW 2021-10-21 16:53:00 Kavin Locke [facility] CT HEAD WO CONTRAST 2021-10-21 16:52:00 Kavin Locke [facility] HB ECG ROUTINE & RHYTHM 2021-10-21 16:22:58 Kavin Locke [facility] LIPASE 2021-10-21 16:17:00 Kavin Locke [facility] FERRITIN SERUM 2021-10-21 16:17:00 Marcio [facility] TROPONIN I 2021-10-21 16:17:00 Kavin Locke [facility] THYROID STIMULATING HORMONE 2021-10-21 16:17:00 Jordon Buckley [facility] COMP. METABOLIC PANEL 2021-10-21 16:17:00 Kavin Locke [facility] ([id number]) [facility] IRON PANEL 2021-10-21 16:17:00 [facility] DIFF CONSULT INTERPRETATION 2021-10-21 16:17:00 Marcio Jordon [facility] CBC WITH DIFF 2021-10-21 16:17:00 Kavin Locke [facility] GLYCOSYLATED HEMOGLOBIN 2021-10-21 16:17:00 Britton Zhang [facility] (A1C) [facility] URINALYSIS 2021-10-21 16:17:00 Kavin Locke [facility] URINE CULTURE 2021-10-21 16:17:00 Kavin Locke [facility] N-TERMINAL PRO-BNP 2021-10-21 16:17:00 Kavin Locke [facility] [id number] 2021-08-22 00:00:00 TESFAYE CLIFFORD [facility] POCT-GLUCOSE METER 2021-07-18 18:55:00 Meredith Cotter [facility] POCT-GLUCOSE METER 2021-07-18 11:48:00 Meredith Cotter [facility] POCT-GLUCOSE METER 2021-07-18 05:52:00 Meredith Cotter [facility] BLOOD GAS, VENOUS 2021-07-18 04:24:00 Uri Bright [facility] CBC W/PLT COUNT & AUTO 2021-07-18 04:23:00 Enid Pichardo [facility] HEPATIC FUNCTION PANEL 2021-07-18 04:23:00 MarinoEnid kwok [facility] BASIC METABOLIC PANEL 2021-07-18 04:23:00 Marino, Enid [facility] MAGNESIUM 2021-07-18 04:23:00 Marino, [facility] CBC W/PLT COUNT & AUTO 2021-07-18 04:23:00 Marino, [facility] XR CHEST 1 VIEW PORTABLE / 2021-07-18 02:42:00 Enid Pichardo [facility] POCT-GLUCOSE METER 2021-07-17 23:44:00 Meredith Cotter V. [facility] POCT-GLUCOSE METER 2021-07-17 18:13:00 Meredith Cotter V. [facility] POCT-GLUCOSE METER 2021-07-17 12:01:00 Meredith Cotter V. [facility] XR CHEST 1 VIEW PORTABLE / 2021-07-17 06:00:00 Enid Pichardo [facility] POCT-GLUCOSE METER 2021-07-17 05:15:00 Meredith Cotter V. [facility] CBC W/PLT COUNT & AUTO 2021-07-17 05:06:00 Enid Pichardo [facility] BASIC METABOLIC PANEL 2021-07-17 05:06:00 MarinoEnid kwok [facility] MAGNESIUM 2021-07-17 05:06:00 Marino, [facility] BLOOD GAS, VENOUS 2021-07-17 05:06:00 Uri Bright [facility] CBC W/PLT COUNT & AUTO 2021-07-17 05:06:00 Marino, [facility] POCT-GLUCOSE METER 2021-07-16 23:24:00 Meredith Cotter V. [facility] POCT-GLUCOSE METER 2021-07-16 18:30:00 Meredith Cotter V. [facility] POCT-GLUCOSE METER 2021-07-16 11:29:00 Meredith Cotter V. [facility] POCT-GLUCOSE METER 2021-07-16 07:19:00 Meredith Cotter [facility] CBC W/PLT COUNT & AUTO 2021-07-16 05:21:00 Marino, [facility] HEPATIC FUNCTION PANEL 2021-07-16 05:21:00 Marino [facility] BASIC METABOLIC PANEL 2021-07-16 05:21:00 Marino [facility] MAGNESIUM 2021-07-16 05:21:00 Marino, [facility] BLOOD GAS, VENOUS 2021-07-16 05:21:00 Uri Bright [facility] CBC W/PLT COUNT & AUTO 2021-07-16 05:21:00 Marino, [facility] XR CHEST 1 VIEW PORTABLE / 2021-07-16 00:21:00 Enid Pichardo [facility] POCT-GLUCOSE METER 2021-07-15 23:40:00 Meredith Cotter V. [facility] POCT-GLUCOSE METER 2021-07-15 22:55:00 Meredith Cotter V. [facility] POCT-GLUCOSE METER 2021-07-15 16:57:00 Meredith Cotter V. [facility] POCT-GLUCOSE METER 2021-07-15 10:45:00 Meredith Cotter V. [facility] CBC W/PLT COUNT & AUTO 2021-07-15 05:48:00 Marino, [facility] BASIC METABOLIC PANEL 2021-07-15 05:48:00 Marino [facility] MAGNESIUM 2021-07-15 05:48:00 Marino, [facility] BLOOD GAS, VENOUS 2021-07-15 05:48:00 Uri Bright [facility] CBC W/PLT COUNT & AUTO 2021-07-15 05:48:00 Marino, [facility] POCT-GLUCOSE METER 2021-07-15 05:18:00 Meredith Cotter V. [facility] XR CHEST 1 VIEW PORTABLE / 2021-07-15 05:11:00 Marino, Enid C [facility] POCT-GLUCOSE METER 2021-07-15 00:11:00 Meredith Cotter V. [facility] POCT-GLUCOSE METER 2021-07-14 23:44:00 Meredith Cotter V. [facility] POCT-GLUCOSE METER 2021-07-14 20:14:00 Meredith Cotter V[facility] POCT-GLUCOSE METER 2021-07-14 18:49:00 Meredith Cotter V. [facility] POCT-GLUCOSE METER 2021-07-14 12:25:00 Meredith Cotter V[facility] POCT-GLUCOSE METER 2021-07-14 05:28:00 Meredith Cotter V[facility] CBC W/PLT COUNT & AUTO 2021-07-14 04:37:00 Marino, [facility] HEPATIC FUNCTION PANEL 2021-07-14 04:37:00 Marino, [facility] BASIC METABOLIC PANEL 2021-07-14 04:37:00 Marino, [facility] MAGNESIUM 2021-07-14 04:37:00 Marino, [facility] CBC W/PLT COUNT & AUTO 2021-07-14 04:37:00 Marino, [facility] BLOOD GAS, VENOUS 2021-07-14 04:32:00 Uri Bright [facility] XR CHEST 1 VIEW PORTABLE / 2021-07-14 01:40:00 Enid Pichardo [facility] POCT-GLUCOSE METER 2021-07-13 23:35:00 Meredith Cotter V. [facility] POCT-GLUCOSE METER 2021-07-13 20:37:00 Meredith Cotter V. [facility] POCT-GLUCOSE METER 2021-07-13 17:49:00 Meredith Cotter V[facility] POCT-GLUCOSE METER 2021-07-13 12:02:00 Meredith Cotter V[facility] POCT-GLUCOSE METER 2021-07-13 05:03:00 Meredith Cotter V. [facility] XR CHEST 1 VIEW PORTABLE / 2021-07-13 03:25:00 MarinoEnid kwok Rita [facility] CBC W/PLT COUNT & AUTO 2021-07-13 02:48:00 Marino, [facility] BASIC METABOLIC PANEL 2021-07-13 02:48:00 Marino, [facility] MAGNESIUM 2021-07-13 02:48:00 Marino, [facility] BLOOD GAS, VENOUS 2021-07-13 02:48:00 Uri Bright [facility] CBC W/PLT COUNT & AUTO 2021-07-13 02:48:00 Marino, [facility] POCT-GLUCOSE METER 2021-07-12 23:41:00 Meredith Cotter V[facility] POCT-GLUCOSE METER 2021-07-12 20:55:00 Meredith Cotter V[facility] POCT-GLUCOSE METER 2021-07-12 17:31:00 Meredith Cotter V. [facility] POCT-GLUCOSE METER 2021-07-12 11:42:00 Meredith Cotter V[facility] POCT-GLUCOSE METER 2021-07-12 07:27:00 Meredith Cotter V[facility] CBC W/PLT COUNT & AUTO 2021-07-12 06:33:00 Marino, Enid [facility] HEPATIC FUNCTION PANEL 2021-07-12 06:33:00 Marino, [facility] BASIC METABOLIC PANEL 2021-07-12 06:33:00 Marino, [facility] MAGNESIUM 2021-07-12 06:33:00 Marino, [facility] BLOOD GAS, VENOUS 2021-07-12 06:33:00 Uri Bright [facility] CBC W/PLT COUNT & AUTO 2021-07-12 06:33:00 Marino, [facility] XR CHEST 1 VIEW PORTABLE / 2021-07-12 02:41:00 Enid Pichardo [facility] POCT-GLUCOSE METER 2021-07-11 23:57:00 Meredith Cotter V. [facility] POCT-GLUCOSE METER 2021-07-11 16:50:00 Meredith Cotter V. [facility] POCT-GLUCOSE METER 2021-07-11 12:05:00 Meredith Cotter V. [facility] ECG 12-LEAD 2021-07-11 08:39:33 David Nichols [facility] POCT-GLUCOSE METER 2021-07-11 05:16:00 Meredith Cotter V. [facility] XR CHEST 1 VIEW PORTABLE / 2021-07-11 04:47:00 Enid Pichardo [facility] ECG 12-LEAD 2021-07-11 03:15:00 Unknown, Hl7 Doctor [facility] ECG 12-LEAD 2021-07-11 03:14:29 Unknown, Hl7 Doctor [facility] ECG 12-LEAD 2021-07-11 03:14:29 Unknown, Hl7 Doctor [facility] CBC W/PLT COUNT & AUTO 2021-07-11 03:08:00 Marino [facility] BASIC METABOLIC PANEL 2021-07-11 03:08:00 Marino [facility] MAGNESIUM 2021-07-11 03:08:00 Enid Pichardo [facility] BLOOD GAS, VENOUS 2021-07-11 03:08:00 Uri Bright [facility] HEMOGLOBIN A1C 2021-07-11 03:08:00 Meredith Cotter V. [facility] CBC W/PLT COUNT & AUTO 2021-07-11 03:08:00 Enid Pichardo [facility] POCT-GLUCOSE METER 2021-07-10 23:53:00 Meredith Cotter V. [facility] POCT-GLUCOSE METER 2021-07-10 20:47:00 Meredith Cotter V. [facility] POCT-GLUCOSE METER 2021-07-10 17:28:00 Meredith Cotter V. [facility] POCT-GLUCOSE METER 2021-07-10 14:10:00 Chaitanya Cotterellerslie Rachel [facility] XR ABDOMEN/KUB 1 VIEW 2021-07-10 12:19:00 [facility]SE [facility] 2021-07-10 11:17:00 AdhiKvng [facility] XR ABDOMEN/KUB 1 VIEW 2021-07-10 10:34:00 DarrenNina hopper [facility] POCT-GLUCOSE METER 2021-07-10 09:08:00 Adhi, Kvng Amaya [facility] POCT-GLUCOSE METER 2021-07-10 06:05:00 AdhKvng hinojosa [facility] CBC W/PLT COUNT & AUTO 2021-07-10 03:40:[address] Mar[address] [facility] HEPATIC FUNCTION PANEL 2021-07-10 03:40:00 Marino [facility] BASIC METABOLIC PANEL 2021-07-10 03:40:00 MarinoEnid kwok [facility] MAGNESIUM 2021-07-10 03:40:00 Marino, [facility] BLOOD GAS, VENOUS 2021-07-10 03:40:00 Uri Bright [facility] PHOSPHORUS 2021-07-10 03:40:00 Uri Bright [facility] CBC W/PLT COUNT & AUTO 2021-07-10 03:40:00 Virgil Garcia [facility] DIFFERENTIAL [facility] XR ABDOMEN/KUB 1 VIEW 2021-07-10 03:39:00 AdhKvng hinojosa I [facility] XR CHEST 1 VIEW PORTABLE / 2021-07-10 00:42:00 MarinoEnid kwok [facility] POCT-GLUCOSE METER 2021-07-10 00:34:00 AdhiKvng [facility] POCT-GLUCOSE METER 2021-07-09 20:59:00 Adhi, [facility] POCT-GLUCOSE METER 2021-07-09 17:10:00 Adhi, [facility] HEMOGLOBIN A1C 2021-07-09 14:15:00 [facility] POCT-GLUCOSE METER 2021-07-09 11:13:00 Adhi, [facility] POCT-GLUCOSE METER 2021-07-09 07:01:00 Adhi, [facility] CBC W/PLT COUNT & AUTO 2021-07-09 05:32:00 Marino [facility] BASIC METABOLIC PANEL 2021-07-09 05:32:00 Marino [facility] MAGNESIUM 2021-07-09 05:32:00 Mraino [facility] BLOOD GAS, VENOUS 2021-07-09 05:32:00 Uri Bright [facility] CBC W/PLT COUNT & AUTO 2021-07-09 05:32:00 Radha [facility] POCT-GLUCOSE METER 2021-07-09 01:19:00 Adhi, [facility] XR CHEST 1 VIEW PORTABLE / 2021-07-09 00:42:00 Enid Pichardo [facility] POCT-GLUCOSE METER 2021-07-08 20:48:00 Adhi, [facility] POCT-GLUCOSE METER 2021-07-08 16:42:00 Adhi, [facility] BASIC METABOLIC PANEL 2021-07-08 13:14:00 Radha [facility] POCT-GLUCOSE METER 2021-07-08 11:38:00 Adhi, [facility] LACTIC ACID, VENOUS 2021-07-08 07:52:[address] [facility]IN 2021-07-08 07:52:00 Radha, Virgil [facility] POCT-GLUCOSE METER 2021-07-08 05:03:00 Adhi, [facility] CBC W/PLT COUNT & AUTO 2021-07-08 03:05:00 Marino [facility] HEPATIC FUNCTION PANEL 2021-07-08 03:05:00 Marino, [facility] BASIC METABOLIC PANEL 2021-07-08 03:05:00 Marino, [facility] MAGNESIUM 2021-07-08 03:05:00 Marino, [facility] BLOOD GAS, VENOUS 2021-07-08 03:05:00 Uri Bright [facility] APTT 2021-07-08 03:05:00 Marino, [facility] CBC W/PLT COUNT & AUTO 2021-07-08 03:05:00 Radha [facility] XR CHEST 1 VIEW PORTABLE / 2021-07-08 02:19:00 Eind Pichardo [facility] POCT-GLUCOSE METER 2021-07-07 23:15:00 Adhi, [facility] POCT-GLUCOSE METER 2021-07-07 21:09:00 Adhi, [facility] POCT-GLUCOSE METER 2021-07-07 16:22:00 Adhi, [facility] CT SINUS WITH IV CONTRAST 2021-07-07 14:29:00 Adhi, [facility] TSH/FREE T4 IF INDICATED 2021-07-07 12:40:00 Adhi, [facility] BASIC METABOLIC PANEL 2021-07-07 12:40:00 Radha, [facility] APTT 2021-07-07 12:40:00 Adhi, [facility] MISCELLANEOUS LAB ORDER 2021-07-07 12:21:00 Tanya Nieto HI [facility] POCT-GLUCOSE METER 2021-07-07 11:08:00 Kacy, [facility] POCT-GLUCOSE METER 2021-07-07 07:22:00 Kacy [facility] EEG 12-26 HR CONTINUOUS 2021-07-07 06:29:00 NealShara [facility] MONITORING WITH VIDEO Medical Ce nter POCT-GLUCOSE METER 2021-07-07 05:54:00 Kacy [facility] CBC W/PLT COUNT & AUTO 2021-07-07 03:21:00 Marino, [facility] BASIC METABOLIC PANEL 2021-07-07 03:21:00 Marino, [facility] MAGNESIUM 2021-07-07 03:21:00 Marino, [facility] HEMOGLOBIN A1C 2021-07-07 03:21:00 Kacy [facility] APTT 2021-07-07 03:21:00 Marino, [facility] CBC W/PLT COUNT & AUTO 2021-07-07 03:21:00 Virgil Garcia [facility] BLOOD GAS, VENOUS 2021-07-07 03:11:00 Uri Bright [facility] APTT 2021-07-07 02:10:00 Marino, [facility] POCT-GLUCOSE METER 2021-07-07 02:07:00 Kacy, [facility] XR CHEST 1 VIEW PORTABLE / 2021-07-07 01:28:00 MarinoEnid kwok [facility] SPUTUM CULTURE + GRAM STAIN 2021-07-06 20:07:00 Marino, [facility] APTT 2021-07-06 18:59:00 Marino, [facility] BASIC METABOLIC PANEL 2021-07-06 18:04:00 Marino, [facility] BLOOD CULTURE 2021-07-06 18:03:00 [facility] PO[facility]SE [facility] 2021-07-06 17:49:00 [facility] 2021-07-06 17:24:00 Kacy Yen [facility] XR CHEST 1 VIEW PORTABLE / 2021-07-06 17:19:00 Melvi Alba [facility] BLOOD GAS, VENOUS 2021-07-06 15:54:00 Cinthya [facility] LACTIC ACID, VENOUS 2021-07-06 15:54:00 Cinthya [facility] POCT-GLUCOSE METER 2021-07-06 12:26:00 [facility] 2021-07-06 12:08:00 Marino [facility] POCT-GLUCOSE METER 2021-07-06 05:39:00 Ronald Garrett [facility] CBC W/PLT COUNT & AUTO 2021-07-06 05:25:00 Marino [facility] HEPATIC FUNCTION PANEL 2021-07-06 05:25:00 Marino [facility] BASIC METABOLIC PANEL 2021-07-06 05:25:00 Marino, [facility] MAGNESIUM 2021-07-06 05:25:00 Marino, [facility] APTT 2021-07-06 05:25:00 Marino, [facility] CBC W/PLT COUNT & AUTO 2021-07-06 05:25:00 Virgil Garcia [facility] XR CHEST 1 VIEW PORTABLE / 2021-07-06 02:33:00 MarinoEnid [facility] POCT-GLUCOSE METER 2021-07-05 23:34:00 Ronald Garrett [facility] POCT-GLUCOSE METER 2021-07-05 17:47:00 Tami Ronald [facility] PROTEIN ELECTROPHORESIS, 2021-07-05 11:53:00 Radha[facility] SERUM IMMUNOTYPING 2021-07-05 11:53:00 Radha, [facility] MISCELLANEOUS LAB ORDER 2021-07-05 11:53:00 Tanya Nieto [facility] POCT-GLUCOSE METER 2021-07-05 10:47:00 Ronald Garrett [facility] POCT-GLUCOSE METER 2021-07-05 08:39:00 Adhi, [facility] APTT 2021-07-05 06:29:00 Marino, [facility] BLOOD GAS, ARTERIAL 2021-07-05 04:13:00 Radha [facility] CBC W/PLT COUNT & AUTO 2021-07-05 04:13:00 Marino [facility] BASIC METABOLIC PANEL 2021-07-05 04:13:00 Marino, [facility] MAGNESIUM 2021-07-05 04:13:00 Marino, [facility] CBC W/PLT COUNT & AUTO 2021-07-05 04:13:00 Radha [facility] DIFFERENTIAL [facility] POCT-GLUCOSE METER 2021-07-05 03:34:00 Adhi, [facility] XR CHEST 1 VIEW PORTABLE / 2021-07-05 02:02:00 Enid Pichardo [facility] POCT-GLUCOSE METER 2021-07-04 23:39:00 [facility], [facility] POCT-GLUCOSE METER 2021-07-04 20:04:00 Adhi, [facility] POCT-GLUCOSE METER 2021-07-04 16:30:00 Adhi, [facility] CT ABDOMEN - RENAL 2021-07-04 15:00:00 [facility]CYST [facility]AL[facility] POCT-GLUCOSE METER 2021-07-04 12:02:00 Adhi, Kvng Jose Luis [facility] BLOOD CULTURE 2021-07-04 11:53:00 [facility] SPUTUM CULTURE + GRAM STAIN 2021-07-04 11:51:00 Mayito Sherry Marija luana [facility] BLOOD CULTURE 2021-07-04 11:50:00 Radha [facility] PROCALCITONIN 2021-07-04 09:32:00 [facility] CORTISOL 2021-07-04 09:32:00 [facility] LACTIC ACID, ARTERIAL 2021-07-04 09:32:00 [facility] URINALYSIS W/ REFLEX URINE 2021-07-04 09:32:00 RadhaVirgil veronica [facility] POCT-GLUCOSE METER 2021-07-04 06:32:00 Adhi, Kvng Amaya [facility] POCT-GLUCOSE METER 2021-07-04 04:08:00 Adhi, Kvngyaritza Amaya [facility] BLOOD GAS, ARTERIAL 2021-07-04 03:28:00 Radha [facility] APTT 2021-07-04 03:25:00 Marino [facility] MAGNESIUM 2021-07-04 03:24:00 Breezy Galdamez [facility] BASIC METABOLIC PANEL 2021-07-04 03:24:00 Adhi, Kvng Amaya CH I [facility] CBC W/PLT COUNT & AUTO 2021-07-04 03:24:00 Marino [facility] HEPATIC FUNCTION PANEL 2021-07-04 03:24:00 Marino, [facility] CBC W/PLT COUNT & AUTO 2021-07-04 03:24:00 Radha, [facility] POCT-GLUCOSE METER 2021-07-04 03:23:00 Adhi, Kvng Amaya [facility] POCT-GLUCOSE METER 2021-07-04 02:35:00 Adhi, [facility] XR CHEST 1 VIEW PORTABLE / 2021-07-04 01:20:00 Marino Enid Salinas [facility] APTT 2021-07-04 00:20:00 Marino Enid [facility] POCT-GLUCOSE METER 2021-07-04 00:19:00 Adhi, [facility] POCT-GLUCOSE METER 2021-07-03 22:24:00 Adhi, [facility] POCT-GLUCOSE METER 2021-07-03 20:28:00 Adhi, [facility] POCT-GLUCOSE METER 2021-07-03 18:27:00 Adhi, [facility] POCT-GLUCOSE METER 2021-07-03 17:47:00 Adhi, [facility] APTT 2021-07-03 17:38:00 Adhi, [facility] VANCOMYCIN LEVEL, TROUGH 2021-07-03 17:28:00 Elian Us [facility] BASIC METABOLIC PANEL 2021-07-03 17:28:00 Adhi, [facility] BLOOD GAS, ARTERIAL 2021-07-03 17:28:00 Sheila Alcocer [facility] CBC (HEMOGRAM ONLY) 2021-07-03 17:27:00 Radha [facility] XR ABDOMEN/KUB 1 VIEW 2021-07-03 16:30:00 [facility] 2D ECHO W/ DOPPLER 2021-07-03 15:03:46 [facility] (CW/PW/COLOR) [facility] BASIC METABOLIC PANEL 2021-07-03 14:10:00 Adhi, [facility] MAGNESIUM 2021-07-03 14:10:00 Breezy Galdamez [facility] POCT-GLUCOSE METER 2021-07-03 12:14:00 Adhi, Kvng Amaya [facility] APTT 2021-07-03 09:44:00 [facility] BLOOD GAS, ARTERIAL 2021-07-03 09:44:00 Radha, [facility] POCT-GLUCOSE METER 2021-07-03 06:03:00 Hotze, [facility] MAGNESIUM 2021-07-03 03:31:00 [facility] LACTATE DEHYDROGENASE (LDH) 2021-07-03 03:31:00 [facility] BASIC METABOLIC PANEL 2021-07-03 03:31:00 Adhi, Kvng Amaya [facility] BLOOD GAS, ARTERIAL 2021-07-03 03:31:00 Radha [facility] CBC W/PLT COUNT & AUTO 2021-07-03 03:31:00 Enid Pichardo [facility] APTT 2021-07-03 03:31:00 Marino [facility] CBC W/PLT COUNT & AUTO 2021-07-03 03:31:00 Radha [facility] XR CHEST 1 VIEW PORTABLE / 2021-07-03 00:15:00 Enid Pichardo [facility] POCT-GLUCOSE METER 2021-07-03 00:02:00 Hotze, [facility] BASIC METABOLIC PANEL 2021-07-02 20:44:00 Adhi, Kvng Amaya [facility] APTT 2021-07-02 20:44:00 [facility] POCT-GLUCOSE METER 2021-07-02 20:08:00 [facility] MAGNESIUM 2021-07-02 18:15:00 [facility] POCT-GLUCOSE METER 2021-07-02 18:01:00 [facility] VENOUS DOPPLER EXT UNI 2021-07-02 13:45:00 Virgil Garcia [facility] BASIC METABOLIC PANEL 2021-07-02 13:06:00 AdhiKvng [facility] APTT 2021-07-02 13:06:00 [facility] CBC (HEMOGRAM ONLY) 2021-07-02 13:06:00 [facility] POCT-[facility]SE METER 2021-07-02 13:05[facility] IV 2021-07-02 12:02:00 Wilmar [facility] APTT 2021-07-02 06:43:00 Marino [facility] POCT-GLUCOSE METER 2021-07-02 05:47:00 Endy Marroquin [facility] APTT 2021-07-02 05:05:00 Marino [facility] XR CHEST 1 VIEW PORTABLE / 2021-07-02 01:34:00 Enid Pichardo [facility] MAGNESIUM 2021-07-02 01:14:00 WilmarBreezy [facility] LACTATE DEHYDROGENASE (LDH) 2021-07-02 01:14:00 [facility] CBC W/PLT COUNT & AUTO 2021-07-02 01:14:00 [facility] HEPATIC FUNCTION PANEL 2021-07-02 01:14:00 Florecita Mai [facility] PHOSPHORUS 2021-07-02 01:14:00 Florecita Mai [facility] BASIC METABOLIC PANEL 2021-07-02 01:14:00 Panfilo Kvng Jose Luis [facility] BLOOD GAS, ARTERIAL 2021-07-02 01:14:00 [facility] 2021-07-02 01:14:00 Marino, [facility] CBC W/PLT COUNT & AUTO 2021-07-02 01:14:[address] [facility] POCT-GLUCOSE METER 2021-07-02 00:50:00 Endy Marroquin [facility] BASIC METABOLIC PANEL 2021-07-01 21:52:00 Kvng Whittaker CH I [facility] APTT 2021-07-01 17:34:00 Endy Marroquin [facility] POCT-GLUCOSE METER 2021-07-01 16:41:00 Endy Marroquin [facility] BASIC METABOLIC PANEL 2021-07-01 13:33:00 Adhashish, Kvng Amaya CH I [facility] MAGNESIUM 2021-07-01 13:33:00 Breezy Galdamez [facility] CBC W/PLT COUNT & AUTO 2021-07-01 13:33:00 Breezy Galdamez [facility]ENTIAL [facility] CBC W/PLT COUNT & AUTO 2021-07-01 13:33:00 Chandni Yuen [facility] DIFFERENTIAL [facility] POCT-GLUCOSE METER 2021-07-01 11:02:00 Endy Marroquin [facility] APTT 2021-07-01 09:21:00 Endy Marroquin [facility] POCT-GLUCOSE METER 2021-07-01 06:56:00 Endy Marroquin [facility] XR CHEST 1 VIEW PORTABLE / 2021-07-01 02:13:00 Enid Pichardo [facility] MAGNESIUM 2021-07-01 01:36:00 Breezy Galdamez [facility] LACTATE DEHYDROGENASE (LDH) 2021-07-01 01:36:00 Breezy Galdamez [facility] HEPATIC FUNCTION PANEL 2021-07-01 01:36:00 Florecita Mai [facility] PHOSPHORUS 2021-07-01 01:36:00 Florecita Mai [facility] BASIC METABOLIC PANEL 2021-07-01 01:36:00 AdhiKvng CH I [facility] APTT 2021-07-01 01:36:00 Marino, Enid [facility] CBC W/PLT COUNT & AUTO 2021-07-01 01:35:00 Breezy [facility] BLOOD GAS, ARTERIAL 2021-07-01 01:35:00 Virgil Garcia [facility] CBC W/PLT COUNT & AUTO 2021-07-01 01:35:00 Chand[facility]FFERENTIAL [facility] POCT-GLUCOSE METER 2021-06-30 23:39:00 Endy Marroquin [facility] POCT-GLUCOSE METER 2021-06-30 21:07:00 Endy Marroquin [facility] APTT 2021-06-30 18:40:00 Marino, Enid [facility] APTT 2021-06-30 18:10:00 Marino, Enid [facility] MAGNESIUM 2021-06-30 16:10:00 Breezy Galdamez [facility] CBC W/PLT COUNT & AUTO 2021-06-30 16:10:00 Breezy Galdamez [facility] BASIC METABOLIC PANEL 2021-06-30 16:10:00 Adhashish, Kvng Amaya I [facility] CBC W/PLT COUNT & AUTO 2021-06-30 16:10:00 [facility]FFERENTIAL [facility] POCT-GLUCOSE METER 2021-06-30 15:47:00 Endy Marroquin [facility] POCT-GLUCOSE METER 2021-06-30 11:45:00 Cara Endy [facility] BASIC METABOLIC PANEL 2021-06-30 11:43:00 Adhi, Kvng Amaya I [facility] APTT 2021-06-30 11:43:00 Marino, [facility] BLOOD CULTURE 2021-06-30 07:41:[address] [facility] POCT-GLUCOSE METER 2021-06-30 06:09:00 Endy Marroquin [facility] XR CHEST 1 VIEW PORTABLE / 2021-06-30 04:44:00 Enid Pichardo [facility] MAGNESIUM 2021-06-30 03:24:00 Breezy Galdamez [facility] LACTATE DEHYDROGENASE (LDH) 2021-06-30 03:24:00 Breezy Galdamez [facility] BLOOD GAS, ARTERIAL 2021-06-30 03:24:00 Chandni Yuen [facility] CBC W/PLT COUNT & AUTO 2021-06-30 03:24:00 Breezy Galdamez [facility] HEPATIC FUNCTION PANEL 2021-06-30 03:24:00 Omranlinda [facility] PHOSPHORUS 2021-06-30 03:24:00 MelidaranianFlorecita [facility] BASIC METABOLIC PANEL 2021-06-30 03:24:00 AdhiKvng [facility] LACTIC ACID, ARTERIAL 2021-06-30 03:24:00 Casey Spicer [facility] APTT 2021-06-30 03:24:00 Enid Pichardo [facility] CBC W/PLT COUNT & AUTO 2021-06-30 03:24:00 Chandni Yuen [facility] DIFFERENTIAL [facility] POCT-GLUCOSE METER 2021-06-30 01:49:00 Endy Marroquin [facility] POCT-GLUCOSE METER 2021-06-29 22:20:00 Endy Marroquin [facility] BASIC METABOLIC PANEL 2021-06-29 20:57:00 Adhi, Kvng Amaya [facility] LACTIC ACID, ARTERIAL 2021-06-29 20:57:00 Casey Spicer [facility] VENOUS DOPPLER LEGS 2021-06-29 18:40:00 Ela Rosario [facility] POCT-GLUCOSE METER 2021-06-29 17:30:00 Endy Marroquin [facility] US ABDOMEN LIMITED 2021-06-29 17:16:00 Sheila Alcocerveronica [facility] VANCOMYCIN LEVEL, TROUGH 2021-06-29 16:54:00 MagenElian [facility] BLOOD CULTURE 2021-06-29 16:53:[address] [facility] BLOOD CULTURE 2021-06-29 16:46:00 [facility] MAGNESIUM 2021-06-29 16:19:00 Breezy Galdamez [facility] BLOOD GAS, ARTERIAL 2021-06-29 16:19:00 Chandni Yuen [facility] CBC W/PLT COUNT & AUTO 2021-06-29 16:19:00 Breezy Galdamez [facility] CBC W/PLT COUNT & AUTO 2021-06-29 16:19:00 Chandni Yuen [facility] DIFFERENTIAL [facility] APTT 2021-06-29 14:28:00 Enid Pichardo [facility] SPUTUM CULTURE + GRAM STAIN 2021-06-29 14:28:00 Zackery Peralta [facility] POCT-GLUCOSE METER 2021-06-29 12:13:00 Endy Marroquin [facility] BASIC METABOLIC PANEL 2021-06-29 12:10:00 Kvng Whittaker Jose Luis CH I [facility] APTT 2021-06-29 08:29:00 Enid Pichardo [facility] POCT-GLUCOSE METER 2021-06-29 06:16:00 Endy Marorquin [facility] XR CHEST 1 VIEW PORTABLE / 2021-06-29 05:09:00 Enid Pichardo [facility] POCT-GLUCOSE METER 2021-06-29 01:32:00 Endy Marroquin [facility] BLOOD GAS, ARTERIAL 2021-06-29 01:18:00 Chandni Yuen [facility] MAGNESIUM 2021-06-29 01:17:00 Breezy Galdamez [facility] LACTATE DEHYDROGENASE (LDH) 2021-06-29 01:17:00 Breezy Galdamez [facility] CBC W/PLT COUNT & AUTO 2021-06-29 01:17:00 Breezy Galdamez [facility] BASIC METABOLIC PANEL 2021-06-29 01:17:00 Breezy Galdamez [facility] URIC ACID 2021-06-29 01:17:00 Tanya Nieto [facility] APTT 2021-06-29 01:17:00 MarinoEnid [facility] HEPATIC FUNCTION PANEL 2021-06-29 01:17:00 Sergei [facility] PHOSPHORUS 2021-06-29 01:17:00 Sergei [facility] CBC W/PLT COUNT & AUTO 2021-06-29 01:17:00 Chandni Yuen [facility] DIFFERENTIAL [facility] BASIC METABOLIC PANEL 2021-06-28 22:31:00 Breezy Galdamez [facility] POCT-GLUCOSE METER 2021-06-28 20:14:00 Endy Marroquin [facility] APTT 2021-06-28 18:37:00 Marino [facility] POCT-GLUCOSE METER 2021-06-28 18:10:00 Endy Marroquin [facility] MAGNESIUM 2021-06-28 17:46:00 Breezy Galdamez [facility] CBC W/PLT COUNT & AUTO 2021-06-28 17:46:[address] [facility] CBC W/PLT COUNT & AUTO 2021-06-28 17:46:00 Chandni Yuen [facility] DIFFERENTIAL [facility] BLOOD GAS, ARTERIAL 2021-06-28 17:45:00 Chandni Yuen [facility] ASPERGILLUS GALACTOMANNAN 2021-06-28 12:00:00 Breezy Galdamez CH I [facility] APTT 2021-06-28 12:00:00 Enid Pichardo [facility] POCT-GLUCOSE METER 2021-06-28 11:55:00 Endy Marroquin [facility] BASIC METABOLIC PANEL 2021-06-28 10:24:00 Breezy Galdamez [facility] XR CHEST 1 VIEW PORTABLE / 2021-06-28 05:04:00 Enid Pichardo [facility] BLOOD GAS, ARTERIAL 2021-06-28 04:26:00 Chandni Yuen [facility] MAGNESIUM 2021-06-28 04:24:00 WilmarBreezy [facility] LACTATE DEHYDROGENASE (LDH) 2021-06-28 04:24:00 Breezy Galdamez [facility] CBC W/PLT COUNT & AUTO 2021-06-28 04:24:00 Breezy Galdamez [facility] BASIC METABOLIC PANEL 2021-06-28 04:24:00 Breezy Galdamez [facility] PHOSPHORUS 2021-06-28 04:24:00 Lino Moreira [facility] HEPATIC FUNCTION PANEL 2021-06-28 04:24:00 Benita Martinez [facility] APTT 2021-06-28 04:24:00 Enid Pichardo [facility] CBC W/PLT COUNT & AUTO 2021-06-28 04:24:[address] [facility] DIFFERENTIAL [facility] [facility] (CELLAVISION MANUAL DIFF) 2021-06-28 04:24:00 Chandni Yuen CH I [facility] POCT-GLUCOSE METER 2021-06-27 23:33:00 Endy Marroquin [facility] BASIC METABOLIC PANEL 2021-06-27 22:18:00 Breezy Galdamez [facility] POCT-GLUCOSE METER 2021-06-27 21:10:00 Endy Marroquin [facility] POCT-GLUCOSE METER 2021-06-27 18:10:00 Endy Marroquin [facility] BLOOD GAS, ARTERIAL 2021-06-27 18:08:00 Chandni Yuen [facility] MAGNESIUM 2021-06-27 15:55:00 Breezy Galdamez [facility] CBC W/PLT COUNT & AUTO 2021-06-27 15:55:00 Breezy Galdamez [facility] BASIC METABOLIC PANEL 2021-06-27 15:55:00 Breezy Galdamez [facility] CBC W/PLT COUNT & AUTO 2021-06-27 15:55:00 Chandni Yuen [facility] DIFFERENTIAL [facility] POCT-GLUCOSE METER 2021-06-27 12:16:00 Endy Marroquin [facility] PHOSPHORUS 2021-06-27 11:11:00 Lino Moreira [facility] HEPATIC FUNCTION PANEL 2021-06-27 11:11:00 Benita Martinez [facility] HAPTOGLOBIN 2021-06-27 11:11:00 [facility] Breezy [facility] RETICULOCYTE COUNT 2021-06-27 11:11:00 WilmarBreezy [facility] DIRECT AHG (ROSELINE)/DIRECT 2021-06-27 11:11:00 [facility] ABORH, MANUAL 2021-06-27 11:11:00 Breezy Galdamez [facility] XR CHEST 1 VIEW PORTABLE / 2021-06-27 10:10:00 Enid Pichardo [facility] POCT-GLUCOSE METER 2021-06-27 09:34:00 Endy Marroquin [facility] APTT 2021-06-27 02:17:00 Endy Marroquin [facility] MAGNESIUM 2021-06-27 02:17:00 Breezy Galdamez [facility] LACTATE DEHYDROGENASE (LDH) 2021-06-27 02:17:00 Breezy Galdamez [facility] BLOOD GAS, ARTERIAL 2021-06-27 02:17:00 Chandni Yuen [facility] CBC W/PLT COUNT & AUTO 2021-06-27 02:17:00 Breezy Galdamez [facility] BASIC METABOLIC PANEL 2021-06-27 02:17:00 Endy Marroquin [facility] CBC W/PLT COUNT & AUTO 2021-06-27 02:17:00 Chandni Yuen [facility] DIFFERENTIAL [facility] (CELLAVISION MANUAL DIFF) 2021-06-27 02:17:00 Chandni Yuen CH I [facility] BLOOD CULTURE 2021-06-26 18:43:00 Sundeep [facility] BLOOD CULTURE 2021-06-26 18:43:00 [facility] IDENTIFICATION PANEL Medical [facility] POCT-GLUCOSE METER 2021-06-26 18:17:00 Endy Marroquin [facility] MAGNESIUM 2021-06-26 14:54:00 Breezy Galdamez [facility] CBC W/PLT COUNT & AUTO 2021-06-26 14:54:[address] [facility] BASIC METABOLIC PANEL 2021-06-26 14:54:00 Endy Marroquin [facility] BLOOD GAS, ARTERIAL 2021-06-26 14:54:00 Endy Marroquin [facility] CBC W/PLT COUNT & AUTO 2021-06-26 14:54:00 Chandni Yuen [facility] t [facility] DIFFERENTIAL [facility] POCT-GLUCOSE METER 2021-06-26 12:43:00 Endy Marroquin [facility] XR CHEST 1 VIEW PORTABLE / 2021-06-26 12:38:00 Radha Urbano [facility] XR ABDOMEN/KUB 1 VIEW 2021-06-26 12:38:00 Radha Urbano [facility] PORTABLE [facility] APTT 2021-06-26 11:46:00 Marroquin, Endy [facility] FUNGITELL R B-D-GLUCAN WITH 2021-06-26 08:43:00 Zackery Peralta [facility] REFLEX TO [facility] POCT-GLUCOSE METER 2021-06-26 08:00:00 Endy Marroquin [facility] MAGNESIUM 2021-06-26 04:40:00 Breezy Galdamez [facility] LACTATE DEHYDROGENASE (LDH) 2021-06-26 04:40:00 Breezy Galdamez [facility] BASIC METABOLIC PANEL 2021-06-26 04:40:00 Chayo Morgan [facility] PT/APTT 2021-06-26 04:40:00 Chandni Yuen [facility] BLOOD GAS, ARTERIAL 2021-06-26 04:40:00 Chandni Yuen [facility] CBC W/PLT COUNT & AUTO 2021-06-26 04:40:00 Breezy [facility] PHOSPHORUS 2021-06-26 04:40:00 Lino Moreira [facility] HEPATIC FUNCTION PANEL 2021-06-26 04:40:00 Benita Martinez [facility] CBC W/PLT COUNT & AUTO 2021-06-26 04:40:00 Chandni Yuen [facility] DIFFERENTIAL [facility] POCT-GLUCOSE METER 2021-06-26 00:02:00 Endy Marroquin [facility] VANCOMYCIN LEVEL, TROUGH 2021-06-25 23:56:00 Chandni Yuen [facility] CBC W/PLT COUNT & AUTO 2021-06-25 23:56:00 José Antonio Albright [facility] APTT 2021-06-25 23:56:00 Enid Pichardo [facility] CBC W/PLT COUNT & AUTO 2021-06-25 23:56:00 José Antonio Albright [facility] POCT-GLUCOSE METER 2021-06-25 17:40:00 Endy Marroquin [facility] BLOOD GAS, ARTERIAL 2021-06-25 16:35:00 Chandni Yuen [facility] MAGNESIUM 2021-06-25 16:34:00 Breezy Galdamez [facility] BASIC METABOLIC PANEL 2021-06-25 16:34:00 Chayo Morgan [facility] CBC W/PLT COUNT & AUTO 2021-06-25 16:34:00 Breezy Galdamez [facility] APTT 2021-06-25 16:34:00 Chandni Yuen [facility] CBC W/PLT COUNT & AUTO 2021-06-25 16:34:00 Chandni Yuen [facility] DIFFERENTIAL [facility] OSMOLALITY, URINE 2021-06-25 12:37:00 Chandni Yuen [facility] OSMOLALITY, SERUM 2021-06-25 12:37:00 Chandni Yuen [facility] APTT 2021-06-25 12:37:00 Chandni Yuen [facility] POCT-GLUCOSE METER 2021-06-25 12:26:00 Endy Marroquin [facility] XR ABDOMEN/KUB 1 VIEW 2021-06-25 10:09:00 Chandni Yuen [facility] PORTABLE [facility] XR CHEST 1 VIEW PORTABLE / 2021-06-25 10:05:[address] [place] [facility] BEDSIDE [facility] APTT 2021-06-25 05:43:00 Enid Pichardo [facility] POCT-GLUCOSE METER 2021-06-25 05:39:00 Endy Marroquin [facility] BLOOD GAS, ARTERIAL 2021-06-25 04:40:00 Chandni Yuen [facility] MAGNESIUM 2021-06-25 04:38:00 Breezy Galdamez [facility] LACTATE DEHYDROGENASE (LDH) 2021-06-25 04:38:00 Breezy Galdamez [facility] CBC W/PLT COUNT & AUTO 2021-06-25 04:38:00 Endy Marroquin [facility] BASIC METABOLIC PANEL 2021-06-25 04:38:00 Chayo Morgan [facility] PHOSPHORUS 2021-06-25 04:38:00 Lino Moreira [facility] HEPATIC FUNCTION PANEL 2021-06-25 04:38:00 Benita Martinez Hawa Rita [facility] CBC W/PLT COUNT & AUTO 2021-06-25 04:38:00 Endy Marroquin [facility] PT/APTT 2021-06-25 01:29:00 Chandni Yuen [facility] APTT 2021-06-25 01:29:00 Marino, [facility] VANCOMYCIN LEVEL, TROUGH 2021-06-25 00:29:00 Wilfrid Chandni [facility] POCT-GLUCOSE METER 2021-06-25 00:19:00 Endy Marroquin [facility] APTT 2021-06-24 23:18:00 Marino, [facility] APTT 2021-06-24 21:11:00 Marino, [facility] POCT-GLUCOSE METER 2021-06-24 17:50:00 Endy Marroquin [facility] BLOOD GAS, ARTERIAL 2021-06-24 17:16:00 Chandni Yuen [facility] BASIC METABOLIC PANEL 2021-06-24 17:07:00 Chayo Morgan [facility] BLOOD CULTURE 2021-06-24 14:40:00 Wilfrid Chandni [facility] BLOOD CULTURE 2021-06-24 14:40[facility] ter BLOOD CULTURE 2021-06-24 14:38:00 Wilfrid [facility] 2D ECHO W/ DOPPLER 2021-06-24 14:20:52 Chandni Yuen [facility] (CW/PW/COLOR) [facility] APTT 2021-06-24 14:14:00 Marino Enid [facility] LACTIC ACID, ARTERIAL 2021-06-24 14:14:00 Chandni Yuen [facility] CORTISOL 2021-06-24 14:14:00 Chandni Yuen [facility] XR ABDOMEN/KUB 1 VIEW 2021-06-24 12:16:00 Chandni Yuen [facility] POCT-GLUCOSE METER 2021-06-24 11:55:00 Endy Marroquin [facility] BLOOD GAS, ARTERIAL 2021-06-24 11:05:00 Chandni Yuen [facility] XR ABDOMEN/KUB 1 VIEW 2021-06-24 10:26:00 Chandni Yuen [facility] XR ABDOMEN/KUB 1 VIEW 2021-06-24 10:11:00 José Antonio Albright [facility] BLOOD GAS, ARTERIAL 2021-06-24 08:23:00 Chandni Yuen [facility] PT/APTT 2021-06-24 08:23:00 Chandni Yuen [facility] XR CHEST 1 VIEW PORTABLE / 2021-06-24 07:12:00 Greer Burton [facility] POCT-GLUCOSE METER 2021-06-24 05:27:00 Endy Marroquin [facility] XR CHEST 1 VIEW PORTABLE / 2021-06-24 04:51:00 Greer Burton [facility] MAGNESIUM 2021-06-24 04:30:00 Breezy Galdamez [facility] LACTATE DEHYDROGENASE (LDH) 2021-06-24 04:30:00 Breezy Galdamez [facility] CBC W/PLT COUNT & AUTO 2021-06-24 04:30:[address] BASIC METABOLIC PANEL 2021-06-24 04:30:00 Eddie Chayo [facility] PHOSPHORUS 2021-06-24 04:30:00 Lino Moreira [facility] HEPATIC FUNCTION PANEL 2021-06-24 04:30:00 Benita Martinez [facility] BLOOD GAS, ARTERIAL 2021-06-24 04:30:00 Ela Rosario [facility] CBC W/PLT COUNT & AUTO 2021-06-24 04:30:00 Endy Marroquin [facility] VANCOMYCIN LEVEL, TROUGH 2021-06-24 01:29:00 Zion Kuo [facility] POCT-GLUCOSE METER 2021-06-23 23:30:00 Endy Marroquin [facility] POCT-GLUCOSE METER 2021-06-23 20:35:00 Endy Marroquin [facility] HC LAB HIV-1 AG W/HIV-1&2 2021-06-23 18:09:00 José Antonio Albright CH I [facility] POCT-GLUCOSE METER 2021-06-23 17:47:00 Endy Marroquin [facility] MAGNESIUM 2021-06-23 17:22:00 Breezy Galdamez [facility] BASIC METABOLIC PANEL 2021-06-23 17:22:00 Chayo Morgan [facility] CSF CELL COUNT 2021-06-23 17:22:00 GaryLigia bartlettmad [facility] W/DIFFERENTIAL [facility] CSF CULTURE + GRAM STAIN 2021-06-23 17:22:00 Gary, [facility] PROTEIN, CSF 2021-06-23 17:22:00 Gary, [facility] GLUCOSE, CSF 2021-06-23 17:22:00 Gary, [facility] MENINGITIS/ENCEPHALITIS 2021-06-23 17:18:00 Enrique Mercado [facility] PANEL [facility] PT/APTT 2021-06-23 14:17:00 Lucretia Sheade kalbcarolyne [facility] PROTHROMBIN TIME/INR 2021-06-23 14:17:00 Topher Shea [facility] EEG AWAKE AND DROWSY 2021-06-23 12:29:00 Fuad Cai [facility] POCT-GLUCOSE METER 2021-06-23 11:58:00 Endy Marroquin [facility] POCT-GLUCOSE METER 2021-06-23 09:33:00 Endy Marroquin [facility] POCT-GLUCOSE METER 2021-06-23 05:22:00 Endy Marroquin [facility] APTT 2021-06-23 05:16:00 MarinoEnid [facility] MAGNESIUM 2021-06-23 05:10:00 [facility] LACTATE DEHYDROGENASE (LDH) 2021-06-23 05:10:00 [facility] BASIC METABOLIC PANEL 2021-06-23 05:10:00 Chayo Morgan [facility] PHOSPHORUS 2021-06-23 05:10:00 Lino Moreira [facility] HEPATIC FUNCTION PANEL 2021-06-23 05:10:00 Benita Martinez [facility] CBC W/PLT COUNT & AUTO 2021-06-23 05:09:00 Endy Marroquin [facility] DIFFERENTIAL [facility] CBC W/PLT COUNT & AUTO 2021-06-23 05:09:00 Endy Marroquin [facility] APTT 2021-06-23 02:44:00 MarinoEnid [facility] APTT 2021-06-23 00:30:00 Marino, [facility] POCT-GLUCOSE METER 2021-06-22 23:13:00 Endy Marroquin [facility] POCT-GLUCOSE METER 2021-06-22 16:34:00 Endy Marroquin [facility] MAGNESIUM 2021-06-22 16:11:00 Breezy Galdamez [facility] BASIC METABOLIC PANEL 2021-06-22 16:11:00 Eddie Chayo [facility] GLUCOSE 2021-06-22 16:11:00 Benita Martinez [facility] APTT 2021-06-22 16:11:00 Eddie [facility] POCT-GLUCOSE METER 2021-06-22 14:07:00 Endy Marroquin [facility] POCT-GLUCOSE METER 2021-06-22 11:33:00 Cara Endy [facility] POCT-GLUCOSE METER 2021-06-22 10:20:00 Endy Marroquin [facility] APTT 2021-06-22 10:15:00 Enid Pichardo [facility] GLUCOSE 2021-06-22 10:15:00 Benita Martinez [facility] BASIC METABOLIC PANEL 2021-06-22 10:15:00 Radha Urbano [facility] POCT-GLUCOSE METER 2021-06-22 09:00:00 Endy Marroquin [facility] ECG 12-LEAD 2021-06-22 08:55:23 Unknown, Hl7 [facility] ECG 12-LEAD 2021-06-22 08:55:23 Unknown, Hl7 [facility] POCT-GLUCOSE METER 2021-06-22 07:51:00 Endy Marroquin [facility] POCT-GLUCOSE METER 2021-06-22 06:53:00 Endy Marroquin [facility] POCT-GLUCOSE METER 2021-06-22 05:41:00 Endy Marroquin [facility] POCT-GLUCOSE METER 2021-06-22 03:55:00 Endy Marroquin [facility] BLOOD GAS, ARTERIAL 2021-06-22 03:48:00 Ela Rosario [facility] CBC W/PLT COUNT & AUTO 2021-06-22 03:47:00 Endy Marroquin [facility] DIFFERENTIAL [facility] CBC W/PLT COUNT & AUTO 2021-06-22 03:47:00 Endy Marroquin [facility] (CELLAVISION MANUAL DIFF) 2021-06-22 03:47:00 Endy Marroquin CH, I [facility] APTT 2021-06-22 03:46:00 Enid Pichardo [facility] MAGNESIUM 2021-06-22 03:46:00 Breezy Galdamez [facility] LACTATE DEHYDROGENASE (LDH) 2021-06-22 03:46:00 Breezy aGldamez [facility] BASIC METABOLIC PANEL 2021-06-22 03:46:00 Radha Urbano [facility] PHOSPHORUS 2021-06-22 03:46:00 Lino Moreira [facility] HEPATIC FUNCTION PANEL 2021-06-22 03:46:00 Benita Martinez [facility] POCT-GLUCOSE METER 2021-06-22 03:20:00 Endy Marroquin [facility] POCT-GLUCOSE METER 2021-06-22 03:02:00 Endy Marroquin [facility] POCT-GLUCOSE METER 2021-06-22 02:04:00 Endy Marroquin [facility] POCT-GLUCOSE METER 2021-06-22 01:20:00 Endy Marroquin [facility] VANCOMYCIN LEVEL, TROUGH 2021-06-22 00:34:00 Elian Us [facility] POCT-GLUCOSE METER 2021-06-22 00:02:00 Endy Marroquin [facility] POCT-GLUCOSE METER 2021-06-21 23:06:00 Endy Marroquin [facility] BASIC METABOLIC PANEL 2021-06-21 22:09:00 Radha Urbano [facility] POCT-GLUCOSE METER 2021-06-21 22:04:00 Cara Endy [facility] POCT-GLUCOSE METER 2021-06-21 21:17:00 Cara Endy [facility] POCT-GLUCOSE METER 2021-06-21 20:24:00 Endy Marroquin [facility] POCT-GLUCOSE METER 2021-06-21 19:56:00 Cara Endy [facility] APTT 2021-06-21 17:56:00 MarinoEnid kwok [facility] MAGNESIUM 2021-06-21 17:55:00 Breezy Galdamez [facility] BASIC METABOLIC PANEL 2021-06-21 17:55:00 Sundeep [facility] POCT-GLUCOSE METER 2021-06-21 17:55:00 Endy Marroquin [facility] POCT-GLUCOSE METER 2021-06-21 17:05:00 Cara Endy [facility] POCT-GLUCOSE METER 2021-06-21 16:21:00 Cara Endy [facility] POCT-GLUCOSE METER 2021-06-21 14:17:00 Endy Marroquin [facility] POCT-GLUCOSE METER 2021-06-21 13:02:00 Cara Endy [facility] APTT 2021-06-21 12:34:00 Enid Pichardo [facility] POCT-GLUCOSE METER 2021-06-21 12:11:00 Endy Marroquin [facility] POCT-GLUCOSE METER 2021-06-21 11:16:00 Endy Marroquin [facility] BLOOD GAS, ARTERIAL 2021-06-21 10:29:[address] [facility] BASIC METABOLIC PANEL 2021-06-21 10:28:00 [facility] HEMOGLOBIN AND HEMATOCRIT 2021-06-21 10:28:00 Endy Marroquin [facility] POCT-GLUCOSE METER 2021-06-21 10:22:00 Endy Marroquin [facility] POCT-GLUCOSE METER 2021-06-21 09:26:00 Endy Marroquin [facility] POCT-GLUCOSE METER 2021-06-21 08:23:00 Endy Marroquin [facility] POCT-GLUCOSE METER 2021-06-21 06:17:00 Endy Marroquin [facility] POCT-GLUCOSE METER 2021-06-21 05:44:00 Endy Marroquin [facility] APTT 2021-06-21 04:57:00 Enid Pichardo [facility] BLOOD GAS, ARTERIAL 2021-06-21 04:56:[address] [facility] MAGNESIUM 2021-06-21 04:55:00 Breezy Galdamez [facility] LACTATE DEHYDROGENASE (LDH) 2021-06-21 04:55:00 WilmarBreezy [facility] BASIC METABOLIC PANEL 2021-06-21 04:55:00 Radha Urbano [facility] CBC W/PLT COUNT & AUTO 2021-06-21 04:55:00 Endy Marroquin [facility] PHOSPHORUS 2021-06-21 04:55:00 Lino Moreira [facility] HEPATIC FUNCTION PANEL 2021-06-21 04:55:00 Benita Martinez [facility] CBC W/PLT COUNT & AUTO 2021-06-21 04:55:[address] [facility] (CELLAVISION MANUAL DIFF) 2021-06-21 04:55:00 Endy Marroquin [facility] POCT-GLUCOSE METER 2021-06-21 04:43:00 Endy Marroquin [facility] POCT-GLUCOSE METER 2021-06-21 03:25:00 Endy Marroquin [facility] POCT-GLUCOSE METER 2021-06-21 02:02:00 Endy Marroquin [facility] POCT-GLUCOSE METER 2021-06-21 01:02:00 Endy Marroquin [facility] POCT-GLUCOSE METER 2021-06-20 23:17:00 Endy Marroquin [facility] BASIC METABOLIC PANEL 2021-06-20 23:10:00 Sundeep [facility] BLOOD GAS, ARTERIAL 2021-06-20 22:32:[address] [facility] HEMOGLOBIN AND HEMATOCRIT 2021-06-20 22:31:00 Endy Marroquin CH, I [facility] APTT 2021-06-20 22:31:00 Enid Pichardo [facility] POCT-GLUCOSE METER 2021-06-20 22:23:00 Endy Marroquin [facility] POCT-GLUCOSE METER 2021-06-20 21:01:00 Endy Marroquin [facility] POCT-GLUCOSE METER 2021-06-20 20:49:00 Endy Marroquin [facility] POCT-GLUCOSE METER 2021-06-20 18:07:00 Endy Marroquin [facility] BLOOD GAS, ARTERIAL 2021-06-20 18:00:00 Sundeep [facility] POCT-GLUCOSE METER 2021-06-20 17:23:00 Endy Marroquin [facility] BASIC METABOLIC PANEL 2021-06-20 16:19:00 Sundeep [facility] MAGNESIUM 2021-06-20 16:19:00 Sundeep [facility] POCT-GLUCOSE METER 2021-06-20 15:30:00 Endy Marroquin [facility] BLOOD CULTURE 2021-06-20 14:54:00 Sundeep [facility] XR CHEST 1 VIEW PORTABLE / 2021-06-20 14:50:00 Endy Marroquin [facility] POCT-GLUCOSE METER 2021-06-20 13:16:00 Endy Marroquin [facility] URINALYSIS W/ REFLEX URINE 2021-06-20 12:42:00 Radha Urbano [facility] SPUTUM CULTURE + GRAM STAIN 2021-06-20 12:42:00 Sundeep [facility] URINE CULTURE 2021-06-20 12:42:00 Sundeep [facility] HIGH SENSITIVITY TROPONIN I 2021-06-20 11:33:00 Sundeep [facility] CBC W/PLT COUNT & AUTO 2021-06-20 11:24:00 Sundeep [facility] BASIC METABOLIC PANEL 2021-06-20 11:24:00 Sundeep [facility] CBC W/PLT COUNT & AUTO 2021-06-20 11:24:00 Sundeep [facility] POCT-GLUCOSE METER 2021-06-20 11:12:00 Endy Marroquin [facility] ECG 12-LEAD 2021-06-20 11:02:22 Unknown, Hl7 Doctor [facility] POCT-GLUCOSE METER 2021-06-20 09:06:00 Endy aMrroquin [facility] POCT-GLUCOSE METER 2021-06-20 08:00:00 Endy Marroquin [facility] POCT-GLUCOSE METER 2021-06-20 06:20:00 Endy Marroquin [facility] POCT-GLUCOSE METER 2021-06-20 05:15:00 Endy Marroquin [facility] BLOOD GAS, ARTERIAL 2021-06-20 04:45:00 Chayo Morgan [facility] CBC W/PLT COUNT & AUTO 2021-06-20 04:44:00 Mami Johnson [facility] BASIC METABOLIC PANEL 2021-06-20 04:44:00 Benita Martinez CH I [facility] MAGNESIUM 2021-06-20 04:44:00 Breezy Galdamez [facility] PHOSPHORUS 2021-06-20 04:44:00 Lino Moreira [facility] HEPATIC FUNCTION PANEL 2021-06-20 04:44:00 Benita Martinez [facility] APTT 2021-06-20 04:44:00 Marino, [facility] CBC W/PLT COUNT & AUTO 2021-06-20 04:44:00 Mami Johnson [facility] POCT-GLUCOSE METER 2021-06-20 04:14:00 Cara [facility] POCT-GLUCOSE METER 2021-06-20 03:23:00 Cara [facility] POCT-GLUCOSE METER 2021-06-20 02:14:00 Cara [facility] POCT-GLUCOSE METER 2021-06-20 00:18:00 Cara [facility] POCT-GLUCOSE METER 2021-06-19 23:25:00 Cara [facility] POCT-GLUCOSE METER 2021-06-19 22:18:00 Cara [facility] APTT 2021-06-19 21:59:00 Marino [facility] BASIC METABOLIC PANEL 2021-06-19 21:58:00 Benita Martinez CH [facility] POCT-GLUCOSE METER 2021-06-19 21:30:00 Endy Marroquin [facility] POCT-GLUCOSE METER 2021-06-19 20:37:00 Endy Marroquin [facility] POCT-GLUCOSE METER 2021-06-19 17:51:00 Cara [facility] BASIC METABOLIC PANEL 2021-06-19 17:48:00 Benita Martinez [facility] POCT-GLUCOSE METER 2021-06-19 15:39:00 Cara [facility] APTT 2021-06-19 14:26:00 Marino [facility] POCT-GLUCOSE METER 2021-06-19 14:21:00 Cara Endy [facility] POCT-GLUCOSE METER 2021-06-19 12:58:00 Cara [facility] BASIC METABOLIC PANEL 2021-06-19 12:09:00 Benita Martinez CH I [facility] VANCOMYCIN LEVEL, TROUGH 2021-06-19 12:09:00 Bryan Lam [facility] APTT 2021-06-19 12:09:00 Enid Pichardo [facility] MAGNESIUM 2021-06-19 12:09:00 Breezy Galdamez [facility] POCT-GLUCOSE METER 2021-06-19 11:42:00 Cara [facility] POCT-GLUCOSE METER 2021-06-19 09:51:00 Cara [facility] XR CHEST 1 VIEW PORTABLE / 2021-06-19 08:55:00 Clayton Spencer [facility] POCT-GLUCOSE METER 2021-06-19 08:14:00 Cara [facility] POCT-GLUCOSE METER 2021-06-19 06:48:00 Cara [facility] POCT-GLUCOSE METER 2021-06-19 06:14:00 Cara [facility] POCT-GLUCOSE METER 2021-06-19 04:54:00 Cara Walker [facility] CBC W/PLT COUNT & AUTO 2021-06-19 04:43:00 Mami Johnson [facility] MAGNESIUM 2021-06-19 04:43:00 Endy Marroquin [facility] BASIC METABOLIC PANEL 2021-06-19 04:43:00 Benita Martinez CH I [facility] PHOSPHORUS 2021-06-19 04:43:00 Lino Moreira [facility] HEPATIC FUNCTION PANEL 2021-06-19 04:43:00 Benita Martinez [facility] APTT 2021-06-19 04:43:00 Enid Pichardo [facility] CBC W/PLT COUNT & AUTO 2021-06-19 04:43:00 Shakir Mami Brooke [facility] BLOOD GAS, ARTERIAL 2021-06-19 04:42:00 Chayo Morgan [facility] POCT-GLUCOSE METER 2021-06-19 03:58:00 Endy Marroquin [facility] POCT-GLUCOSE METER 2021-06-19 03:08:00 Endy Marroquin [facility] POCT-GLUCOSE METER 2021-06-19 02:11:00 Cara Walker [facility] POCT-GLUCOSE METER 2021-06-19 00:36:00 Cara Endy [facility] POCT-GLUCOSE METER 2021-06-18 23:30:00 Cara Endy [facility] BASIC METABOLIC PANEL 2021-06-18 23:16:00 Benita Martinez CH I [facility] POCT-GLUCOSE METER 2021-06-18 22:12:00 Cara Endy [facility] POCT-GLUCOSE METER 2021-06-18 21:13:00 Cara Endy [facility] POCT-GLUCOSE METER 2021-06-18 20:14:00 Endy Marroquin [facility] HEPATIC FUNCTION PANEL 2021-06-18 16:47:00 Benita Martinez HI [facility] BASIC METABOLIC PANEL 2021-06-18 16:47:00 Benita Martinez CH I [facility] POCT-GLUCOSE METER 2021-06-18 16:14:00 Endy Marroquin [facility] POCT-GLUCOSE METER 2021-06-18 12:04:00 Cara Walker [facility] CBC (HEMOGRAM ONLY) 2021-06-18 10:34:00 Benita Martinez [facility] GLUCOSE 2021-06-18 10:34:00 Benita Martinez [facility] APTT 2021-06-18 10:33:[address] [facility] POCT-GLUCOSE METER 2021-06-18 06:58:00 Cara Walker [facility] BLOOD CULTURE 2021-06-18 06:52:00 Carey Floydmiriam Frank [facility] BLOOD GAS, VENOUS 2021-06-18 06:51:[address] [facility] BASIC METABOLIC PANEL 2021-06-18 03:43:00 Chayo Morgan [facility] CBC W/PLT COUNT & AUTO 2021-06-18 03:43:00 Kyle Johnsonashish Brooke [facility] MAGNESIUM 2021-06-18 03:43:00 Cara Endy [facility] PHOSPHORUS 2021-06-18 03:43:00 Lillie [facility] CBC W/PLT COUNT & AUTO 2021-06-18 03:43:00 Kyle Johnsonashish [facility] CT ABDOMEN/PELVIS WITHOUT 2021-06-18 02:14:00 Ignacio Calderón [facility] IV CONTRAST [facility] CT BRAIN WITHOUT IV 2021-06-18 02:14:00 Floyd Calderónang Sandie [facility] CONTRAST [facility] CT CHEST WITHOUT IV 2021-06-18 02:14:[address] [facility] POCT-GLUCOSE METER 2021-06-17 22:56:00 Endy Marroquin [facility] POCT-GLUCOSE METER 2021-06-17 22:15:00 Cara Walker [facility] ECG 12-LEAD 2021-06-17 22:08:37 Unknown, Hl7 [facility] ECG 12-LEAD 2021-06-17 22:08:37 Unknown, Hl[facility] ECG 12-LEAD 2021-06-17 22:08:16 Unknown, Hl7 [facility] ECG 12-LEAD 2021-06-17 22:06:10 Unknown, Hl7 Doctor [facility] ECG 12-LEAD 2021-06-17 22:03:58 Unknown, Hl7 Doctor [facility] XR ABDOMEN/KUB 1 VIEW 2021-06-17 18:37:00 Endy Marroquin [facility] POCT-GLUCOSE METER 2021-06-17 17:39:00 Cara Walker [facility] BLOOD GAS, ARTERIAL 2021-06-17 17:37:00 Ignacio Calderón [facility] CBC (HEMOGRAM ONLY) 2021-06-17 17:37:00 Cara [facility] PROTHROMBIN TIME/INR 2021-06-17 17:37:00 Marroquin [facility] APTT 2021-06-17 17:37:00 Cara [facility] B-TYPE NATRIURETIC FACTOR 2021-06-17 17:37:00 Endy Marroquin [facility] (BNP) [facility] FERRITIN 2021-06-17 17:37:00 [facility] IRON, TIBC, % SAT. (WITHOUT 2021-06-17 17:37:00 Cara [facility] FERRITIN) [facility] LACTATE DEHYDROGENASE (LDH) 2021-06-17 17:37:00 Cara [facility] HIGH SENSITIVITY TROPONIN I 2021-06-17 17:37:00 Cara [facility] BASIC METABOLIC PANEL 2021-06-17 15:59:00 Chayo Morgan [facility] MAGNESIUM 2021-06-17 15:59:00 Lillei Lino [facility] PHOSPHORUS 2021-06-17 15:59:00 Lillie [facility] POCT-GLUCOSE METER 2021-06-17 15:57:00 Cara Walker [facility] BLOOD CULTURE 2021-06-17 13:50:00 Jed Hernandez [facility] XR CHEST 1 VIEW PORTABLE / 2021-06-17 13:19:00 Lino Moreira [facility] POCT-GLUCOSE METER 2021-06-17 11:18:00 [facility] 2021-06-17 09:29:00 [facility] POCT-GLUCOSE METER 2021-06-17 08:45:00 [facility] BLOOD GAS, ARTERIAL 2021-06-17 04:39:00 Mami Johnson [facility] POCT-GLUCOSE METER 2021-06-17 04:20:00 [facility] BASIC METABOLIC PANEL 2021-06-17 02:25:00 Chayo Morgan [facility] BLOOD GAS, ARTERIAL 2021-06-17 02:25:00 Chayo Morgan [facility] HEPATIC FUNCTION PANEL 2021-06-17 02:25:00 Mami Johnson [facility] POCT-GLUCOSE METER 2021-06-16 22:24:00 [facility] POCT-GLUCOSE METER 2021-06-16 18:51:[address] [facility] POCT-GLUCOSE METER 2021-06-16 12:47:[address] [facility] POCT-GLUCOSE METER 2021-06-16 07:59:00 [facility] BLOOD GAS, ARTERIAL 2021-06-16 04:25:00 Chayo Morgan [facility] POCT-GLUCOSE METER 2021-06-16 04:23:00 [facility] CBC W/PLT COUNT & AUTO 2021-06-16 04:03:00 Greer Burton [facility] CBC W/PLT COUNT & AUTO 2021-06-16 04:03:00 Josephine Greer T [facility] BASIC METABOLIC PANEL 2021-06-16 00:39:00 Eddie Chayo [facility] BLOOD CULTURE 2021-06-16 00:38:00 Farrukh Patino [facility] POCT-GLUCOSE METER 2021-06-15 21:01:[address] [facility] BLOOD CULTURE 2021-06-15 17:46:00 Farrukh Patino [facility] POCT-GLUCOSE METER 2021-06-15 15:56:[address] [facility] BASIC METABOLIC PANEL 2021-06-15 15:52:00 Eddie [facility] POCT-GLUCOSE METER 2021-06-15 12:02:00 Josephine Greer [facility] VANCOMYCIN LEVEL, TROUGH 2021-06-15 11:55:00 Renae Zuniga [facility] POCT-GLUCOSE METER 2021-06-15 10:08:00 Josephine Greer T [facility] POCT-GLUCOSE METER 2021-06-15 08:20:00 Josephine Greer [facility] BLOOD GAS, ARTERIAL 2021-06-15 07:21:00 Chayo Morgan [facility] CBC W/PLT COUNT & AUTO 2021-06-15 07:20:00 Josephine Greer T [facility] BASIC METABOLIC PANEL 2021-06-15 07:20:00 Eddie [facility] CBC W/PLT COUNT & AUTO 2021-06-15 07:20:00 Josephine Greer T [facility] BASIC METABOLIC PANEL 2021-06-14 22:37:00 Eddie [facility] POCT-GLUCOSE METER 2021-06-14 21:31:00 [place], [facility] POCT-GLUCOSE METER 2021-06-14 16:42:00 [facility] BASIC METABOLIC PANEL 2021-06-14 16:30:00 EddieChayo ramos [facility] POCT-GLUCOSE METER 2021-06-14 12:49:00 [facility] APTT 2021-06-14 06:57:00 Chandni Yuen [facility] POCT-GLUCOSE METER 2021-06-14 05:14:00 [facility] BLOOD GAS, ARTERIAL 2021-06-14 03:31:00 Chandni Yuen [facility] CBC W/PLT COUNT & AUTO 2021-06-14 03:30:00 [facility] BASIC METABOLIC PANEL 2021-06-14 03:30:00 Chandni Yuen [facility] CBC W/PLT COUNT & AUTO 2021-06-14 03:30:00 [facility] (CELLAVISION MANUAL DIFF) 2021-06-14 03:30:00 [facility] LEGIONELLA ANTIGEN, URINE 2021-06-14 03:30:00 [facility] XR CHEST 1 VIEW PORTABLE / 2021-06-14 02:33:00 Chandni Yuen [facility] BEDSIDE [facility] POCT-GLUCOSE METER 2021-06-13 23:40:00 [facility] BLOOD GAS, ARTERIAL 2021-06-13 22:09:00 Chandni Yuen [facility] BASIC METABOLIC PANEL 2021-06-13 18:07:00 Chandni Yuen [facility] APTT 2021-06-13 18:07:00 Chandni Yuen [facility] C-REACTIVE PROTEIN 2021-06-13 18:07:00 [facility]LO[facility] 2021-06-13 17:57:03 Wilfrid [facility] POCT-GLUCOSE METER 2021-06-13 17:22:00 Greer Burton [facility] BLOOD GAS, ARTERIAL 2021-06-13 17:04:00 Chandni Yuen [facility] XR CHEST 1 VIEW PORTABLE / 2021-06-13 16:05:00 Greer Burton [facility] PROCALCITONIN 2021-06-13 13:22:00 Wilfrid [facility] BLOOD CULTURE 2021-06-13 13:22:00 Wilfrid [facility] BLOOD CULTURE 2021-06-13 13:22:00 Wilfrid [facility] IDENTIFICATION PANEL [facility] ter SPUTUM CULTURE + GRAM STAIN 2021-06-13 13:21:00 Wilfrid [facility] POCT-GLUCOSE METER 2021-06-13 11:52:00 Josephine [facility] EEG AWAKE AND DROWSY 2021-06-13 08:59:00 Fuad Cai [facility] BLOOD GAS, ARTERIAL 2021-06-13 08:55:00 Chandni Yuen [facility] POCT-GLUCOSE METER 2021-06-13 05:17:00 Josephine Greer [facility] BASIC METABOLIC PANEL 2021-06-13 02:14:00 Hotze, [facility] MAGNESIUM 2021-06-13 02:14:[address] [facility] PHOSPHORUS 2021-06-13 02:14:[facility] 2021-06-13 02:14:00 Josephine [facility] CBC W/PLT COUNT & AUTO 2021-06-13 02:13:00 HotzeJosé Antonio [facility] BLOOD GAS, VENOUS 2021-06-13 02:13:00 Greer Burton [facility] CBC W/PLT COUNT & AUTO 2021-06-13 02:13:00 HotzeJosé Antonio [facility] BASIC METABOLIC PANEL 2021-06-12 20:59:00 Chandni Yuen [facility] XR ABDOMEN/KUB 1 VIEW 2021-06-12 18:43:00 Chandni Yuen [facility] PORTABLE [facility] POCT-GLUCOSE METER 2021-06-12 17:15:00 Josephine Greer [facility] BASIC METABOLIC PANEL 2021-06-12 17:00:00 Chandni Yuen [facility] US RENAL COMPLETE 2021-06-12 15:12:00 Chandni Yuen [facility] POCT-GLUCOSE METER 2021-06-12 11:19:00 Josephine Greer [facility] XR CHEST 1 VIEW PORTABLE / 2021-06-12 09:02:00 Chandni Yuen [facility] BEDSIDE [facility] POCT-GLUCOSE METER 2021-06-12 07:36:00 Josephine Greer [facility] BASIC METABOLIC PANEL 2021-06-12 02:51:00 Hotze, José Antonio [facility] CBC W/PLT COUNT & AUTO 2021-06-12 02:51:00 Hotze, José Antonio [facility] MAGNESIUM 2021-06-12 02:51:00 Hotze, José Antonio [facility] PHOSPHORUS 2021-06-12 02:51:00 Hotze, José Antonio [facility] CBC W/PLT COUNT & AUTO 2021-06-12 02:51:00 Hotze, José Antonio [facility] BASIC METABOLIC PANEL 2021-06-11 22:37:00 Lino Moreira [facility] POCT-GLUCOSE METER 2021-06-11 21:51:00 Maycol Mendes [facility] VITAMIN B12 2021-06-11 19:14:00 Chandni Yuen [facility] BASIC METABOLIC PANEL 2021-06-11 19:13:00 Chandni Yuen [facility] RPR 2021-06-11 19:13:00 Chandni Yuen [facility] URINALYSIS WITH MICROSCOPIC 2021-06-11 18:45:00 Neva Mendes [facility] IF INDICATED Medical Center URINALYSIS MICROSCOPIC 2021-06-11 18:45:00 Maycol Mendes [facility] SODIUM, RANDOM URINE 2021-06-11 18:35:00 Maycol Mendes [facility] CREATININE, RANDOM URINE 2021-06-11 18:35:00 Maycol Mendes [facility] CHLORIDE, RANDOM URINE 2021-06-11 18:35:00 [place] [facility] UREA NITROGEN, RANDOM URINE 2021-06-11 18:35:00 Neva Mendes [facility] POCT-GLUCOSE METER 2021-06-11 17:46:00 Maycol Mendes [facility] 2D ECHO W/ DOPPLER 2021-06-11 17:15:30 Chandni Yuen [facility] (CW/PW/COLOR) [facility] POCT-GLUCOSE METER 2021-06-11 15:36:00 Maycol Mendes [facility] TSH/FREE T4 IF INDICATED 2021-06-11 12:49:00 Chandni Yuen [facility] B-TYPE NATRIURETIC FACTOR 2021-06-11 12:49:[address] [facility] (BNP) [facility] T4, FREE 2021-06-11 12:49:00 Chandni Yuen [facility] XR ABDOMEN/KUB 1 VIEW 2021-06-11 10:29:00 Wilfrid [facility] XR ABDOMEN/KUB 1 VIEW 2021-06-11 10:27:00 Wilfrid [facility] XR ABDOMEN/KUB 1 VIEW 2021-06-11 10:24:00 Wilfrid [facility] BASIC METABOLIC PANEL 2021-06-11 06:42:00 Hotze, [facility] CBC W/PLT COUNT & AUTO 2021-06-11 06:42:00 Hotze, [facility] MAGNESIUM 2021-06-11 06:42:00 Hotze, [facility] PHOSPHORUS 2021-06-11 06:42:00 Hotze, [facility] CBC W/PLT COUNT & AUTO 2021-06-11 06:42:00 Hotze, [facility] POCT-GLUCOSE METER 2021-06-11 06:41:00 Hotze, [facility] AMMONIA 2021-06-11 06:00:00 Christian Gallardo [facility] POCT-GLUCOSE METER 2021-06-11 00:18:00 Hotze, [facility] BLOOD GAS, ARTERIAL 2021-06-10 18:43:00 Estela Cintron [facility] CBC W/PLT COUNT & AUTO 2021-06-10 18:42:00 [facility] 2021-06-10 18:42:00 [facility] 2021-06-10 18:42:00 Estela Cintron [facility] FIBRINOGEN 2021-06-10 18:42:00 Estela Cintron [facility] MAGNESIUM 2021-06-10 18:42:00 Estela Cintron [facility] PHOSPHORUS 2021-06-10 18:42:00 Estela Cintron [facility] COMPREHENSIVE METABOLIC 2021-06-10 18:42:00 [facility] D-DIMER 2021-06-10 18:42:00 Estela Cintron [facility] LACTIC ACID, VENOUS 2021-06-10 18:42:[address] [facility] C-REACTIVE PROTEIN 2021-06-10 18:42:00 Est[facility]intron [facility] CBC W/PLT COUNT & AUTO 2021-06-10 18:42:00 [facility] DIFFERENTIAL [facility] XR CHEST 1 VIEW PORTABLE / 2021-06-10 17:38:00 Estela Cintron [facility] BEDSIDE [facility] MEDICATION CORRESPONDENCE 2021-03-03 05:01:00 Doctor Cody, [facility] AUTHORIZATION TO RELEASE 2021-02-23 05:01:00 Doctor Unassnam, [facility] TO [facility] Plan of Care Planned Activity Planned Date Details Comments Source Future Scheduled 2022-06-18 Screening for malignant [facility] 00:00:00 neoplasm of lung [facility] [address] (procedure) [code = 681013620] Future Scheduled 2022-06-18 Screening for malignant [facility] Test 00:00:00 neoplasm of lung [facility] [address] [facility] (procedure) [code = [id number]] Future Scheduled 2022-06-[address] [facility] 00:00:00 measurement (procedure) [facility] [code = [id number]] Future Scheduled 2022-06-[address] [facility] 00:00:00 measurement (procedure) [facility] [code = [id number]] Future Scheduled 2022-05-[address] [facility] 00:00:00 (12+) [code = Medical Center DEPRESSION SCREENING (12+)] Future Scheduled 2022-05-06 FALLS RISK SCREENING [facility] Test 00:00:00 [code = FALLS RISK Medical C enter SCREENING] Future Scheduled 2022-05-[address] [facility] Test 00:00:00 (12+) [code = Medical Center DEPRESSION SCREENING (12+)] Future Scheduled 2022-05-06 FALLS RISK SCREENING [facility] 00:00:00 [code = FALLS RISK Medical C enter SCREENING] Future Scheduled 2022-01-04 INFLUENZA VACCINE (#1) [facility]00 [code = INFLUENZA Medical Ce nter VACCINE (#1)] Future Scheduled 2022-01-04 INFLUENZA VACCINE (#1) [facility] 00:00:00 [code = INFLUENZA Medical Ce nter VACCINE (#1)] Future Scheduled 2021-01-[address] [facility] 00:00:00 (Season Ended) [code = Medic al Center INFLUENZA VACCINE (Season Ended)] Future Scheduled 2021-01-[address] [facility] 00:00:00 (Season Ended) [code = Medic al Center INFLUENZA VACCINE (Season Ended)] Future Scheduled 2020-12-23 COVID-19 VACCINE (3 - [facility]:00:00 Booster for Pfizer Medical C enter series) [code = COVID-19 VACCINE (3 - Booster for Pfizer series)] Future Scheduled 2020-12-23 COVID-19 VACCINE (3 - [facility] 00:00:00 Booster for Pfizer Medical C enter series) [code = COVID-19 VACCINE (3 - Booster for Pfizer series)] Future Scheduled 2020-05-[address] [facility] 00:00:00 (12+) [code = Medical Center DEPRESSION SCREENING (12+)] Future Scheduled 2020-05-[address] [facility] 00:00:00 (12+) [code = Medical Center DEPRESSION SCREENING (12+)] Future Scheduled 2018-07-[address] [facility] 00:00:00 measurement (procedure) [facility] [code = [id number]] Future Scheduled 2018-07-[address] [facility] 00:00:00 measurement (procedure) [facility] [code = [id number]] Future Scheduled 2014-11-[address] [facility] 00:00:00 WELLNESS (YEAR 2 or Medical Center FIRST YEAR if no IPPE) [code = MEDICARE ANNUAL WELLNESS (YEAR 2 or FIRST YEAR if no IPPE)] Future Scheduled 2014-11-[address] [facility] 00:00:00 WELLNESS (YEAR 2 or Medical Center FIRST YEAR if no IPPE) [code = MEDICARE ANNUAL WELLNESS (YEAR 2 or FIRST YEAR if no IPPE)] Future Scheduled 2014-11-[address] [facility] 00:00:00 WELLNESS (YEAR 2 or Medical Center FIRST YEAR if no IPPE) [code = MEDICARE ANNUAL WELLNESS (YEAR 2 or FIRST YEAR if no IPPE)] Future Scheduled 2014-11-[address] [facility] 00:00:00 WELLNESS (YEAR 2 or Medical Center FIRST YEAR if no IPPE) [code = MEDICARE ANNUAL WELLNESS (YEAR 2 or FIRST YEAR if no IPPE)] Future Scheduled [address] [facility] 00:00:00 aneurysm screening Medical C enter (procedure) [code = [id number]] Future Scheduled 2013 PNEUMOCOCCAL 65+ YRS ([address] [facility] 00:00:00 of 1 - [id number] Medica l Center PCV13) [code = PNEUMOCOCCAL 65+ YRS (1 of 1 - [id number] PCV13)] Future Scheduled 2013 PNEUMOCOCCAL 65+ YRS ([address] [facility] 00:00:00 of 1 - [id number] Medica l Center PCV13) [code = PNEUMOCOCCAL 65+ YRS (1 of 1 - [id number] PCV13)] Future Scheduled [address] [facility] Test 00:00:00 aneurysm screening Medical C enter (procedure) [code = 696625112] Future Scheduled 1998 SHINGLES VACCINES ([address] [facility] 00:00:00 2) [code = SHINGLES Medical Center VACCINES (1 of 2)] Future Scheduled 1998 SHINGLES VACCINES ([address] [facility] 00:00:00 2) [code = SHINGLES Medical Center VACCINES (1 of 2)] Future Scheduled 1998 SHINGLES VACCINES ([address] [facility] 00:00:00 2) [code = SHINGLES Medical Center VACCINES (1 of 2)] Future Scheduled 1998 SHINGLES VACCINES ([address] [facility] 00:00:00 2) [code = SHINGLES Medical Center VACCINES (1 of 2)] Future Scheduled 1967-11-21 DTAP/TDAP/TD VACCINES [facility] 00:00:00 (1 - Tdap) [code = Medical C enter DTAP/TDAP/TD VACCINES (1 - Tdap)] Future Scheduled 1967-11-21 DTAP/TDAP/TD VACCINES [facility] 00:00:00 (1 - Tdap) [code = Medical C enter DTAP/TDAP/TD VACCINES (1 - Tdap)] Future Scheduled 1967-11-21 DTAP/TDAP/TD VACCINES [facility] 00:00:00 (1 - Tdap) [code = Medical C enter DTAP/TDAP/TD VACCINES (1 - Tdap)] Future Scheduled 1967-11-21 DTAP/TDAP/TD VACCINES [facility] 00:00:00 (1 - Tdap) [code = Medical C enter DTAP/TDAP/TD VACCINES (1 - Tdap)] Future Scheduled 1966 HEPATITIS C SCREENING [facility]:00:00 [code = HEPATITIS C Medical Center SCREENING] Future Scheduled 1966 HEPATITIS C [facility]CRE[facility]ING [facility] 00:00:00 [code = HEPATITIS C Medical Center SCREENING] Future Scheduled 1966 HEPATITIS C SCRE[facility]ING [facility] 00:00:00 [code = HEPATITIS C Medical Center SCREENING] Future Scheduled 1966 HEPATITIS C [facility]CRE[facility]ING [facility] 00:00:00 [code = HEPATITIS C Medical Center SCREENING] Future Scheduled [address] [facility] 00:00:00 Counseling and Medical Cente r Screening (12+) [code = Tobacco Cessation Counseling and Screening (12+)] Future Scheduled 1960 COVID-19 VACCINE (1) [facility] 00:00:00 [code = COVID-[address] VACCINE (1)] Future Scheduled 1960 COVID-19 VACCINE (1) [facility] 00:00:00 [code = COVID-[address] VACCINE (1)] Future Scheduled [address] [facility] 00:00:00 Counseling and Medical Cente r Screening (12+) [code = Tobacco Cessation Counseling and Screening (12+)] Future Scheduled 1958 DIABETIC EYE EXAM [code [facility] 00:00:00 = DIABETIC EYE EXAM] [facility] Future Scheduled [address] [facility] 00:[facility]:00 examination Medical Center (regime/therapy) [code = 278137374] Future Scheduled 1958 Urine screening for [facility] 00:00:00 protein (procedure) Medical Center [code = 231570014] Future Scheduled 1958 DIABETIC EYE EXAM [code [facility] 00:00:00 = DIABETIC EYE EXAM] Medical Center Future Scheduled [address] [facility] 00:00:00 examination Medical Center (regime/therapy) [code = 050518564] Future Scheduled 1958 Urine screening for [facility] 00:00:00 protein (procedure) Medical Center [code = 758176326] Future Scheduled 1958 DIABETIC EYE EXAM [code [facility] 00:00:00 = DIABETIC EYE EXAM] Medical Center Future Scheduled [address] [facility] 00:00:00 examination Medical Center (regime/therapy) [code = 881843385] Future Scheduled 1958 Urine screening for [facility] 00:00:00 protein (procedure) Medical Center [code = 426890693] Future Scheduled 1958 DIABETIC EYE EXAM [code [facility] 00:00:00 = DIABETIC EYE EXAM] Medical Center Future Scheduled [address] [facility] 00:00:00 examination Medical Center (regime/therapy) [code = 018529215] Future Scheduled 1958 Urine screening for [facility] 00:00:00 protein (procedure) Medical Center [code = 003456596] Future Scheduled 1954 PNEUMOCOCCAL 65+ YRS ([address] [facility] 00:00:00 - PCV) [code = Medical Cente r PNEUMOCOCCAL 65+ YRS (1 - PCV)] Future Scheduled 1954 PNEUMOCOCCAL 65+ YRS ([address] [facility] Test 00:00:00 - PCV) [code = Medical Cente r PNEUMOCOCCAL 65+ YRS (1 - PCV)] Future Scheduled 1948 CT Colonography (combo) [facility] Test 00:00:00 [code = CT Colonography [facility] (combo)] Future Scheduled 1948 Screening for malignant [facility] Test 00:00:00 neoplasm of colon Medical Ce nter (procedure) [code = 239567159] Future Scheduled 1948 Screening for malignant [facility] Test 00:00:00 neoplasm of colon Medical Ce nter (procedure) [code = 858881748] Future Scheduled 1948 Screening for malignant [facility] Test 00:00:00 neoplasm of colon Medical Ce nter (procedure) [code = 711484279] Future Scheduled 1948 Screening for malignant [facility] Test 00:00:00 neoplasm of colon Medical Ce nter (procedure) [code = 617081395] Future Scheduled 1948 Sigmoidoscopy [code = [facility]] Medical Cente r Future Scheduled 1948 Screening for malignant [facility] Test 00:00:00 neoplasm of colon Medical Ce nter (procedure) [code = 670296288] Future Scheduled 1948 Screening for malignant [facility] Test 00:00:00 neoplasm of colon Medical Ce nter (procedure) [code = 689488645] Future Scheduled 1948 CT Colonography (combo) [facility] Test 00:00:00 [code = CT Colonography [facility] (combo)] Future Scheduled 1948 Screening for malignant [facility] Test 00:00:00 neoplasm of colon Medical Ce nter (procedure) [code = 328445330] Future Scheduled 1948 Screening for malignant [facility] 00:00:00 neoplasm of colon Medical Ce nter (procedure) [code = 989930786] Future Scheduled 1948 Screening for malignant [facility] 00:00:00 neoplasm of colon Medical Ce nter (procedure) [code = 373959543] Future Scheduled 1948 Screening for malignant [facility] Test 00:00:00 neoplasm of colon Medical Ce nter (procedure) [code = 753873299] Future Scheduled 1948 Sigmoidoscopy [code [facility] S[facility]oscopy] Medical Cente r Encounters Start End Encounter Admission Attending Care Care Encounter Source Date/Time Date/Time Type Type Clinicians Facility Department ID 2021-11-01 Outpatient 3 [id number] [facility] OTH [facility] 08:18:21 [facility] [place] 2021-10-31 Outpatient 3 [id number] ENC[facility] REF [id number] [facility] 12:07:37 0628 [facility] [place] 2021-10-25 Outpatient 3 [id number] [facility] CRD [facility] 09:56:20 0622 [facility] [place] 2021-10-24 Outpatient 3 [id number] [facility] REF [facility] 12:05:30 0621 [facility] [place] 2021-08-21 Outpatient 3 [id number] [facility] OTH [facility] 11:50:48 0418 [facility] [place] 2021-08-19 Outpatient 3 [id number] ENC[facility] REF [id number] [facility] 15:13:03 0416 [facility] [place] 2021-06-01 Outpatient 3 [id number] ENCTY REF [id number] [facility] 13:36:52 1229 2021-06-01 Outpatient 3 [id number] ENCTY REF [id number] [facility] 13:36:02 1228 2021-05-04 Inpatient 3 MERY AZAR [facility] [id number] [facility] 10:23:00 AMBER 1230 2022-02-13 2022-02-13 Outpatient R JAQUELIN [facility] [id number] Univers 11:00:00 11:00:00 KEVIN ity of [facility] 2021-12-16 2021-12-16 Orders Doctor WILMAR 1.2.840.114 [id number] Univers 00:00:00 00:00:00 Only Unassigned, JOYCE 350.1.13.10 ity of [place] [facility] 4.2.7.2.686 Jameel as [phone] [address] 2021-12-05 2021-12-12 [facility] Quinn Mayorga [facility] [id number] [facility] 18:39:00 18:53:00 Encounter Gonzalez [facility] 2021-12-05 2021-12-12 [facility] Quinn French [facility] [id number] [facility] 18:39:00 18:53:00 Encounter Gonzalez Raymond [facility] 2021-12-05 2021-12-12 Inpatient UR NIKHIL, [facility] Cardiology [id number] [facility] 18:39:00 18:53:00 GONZALEZ 2021-12-07 2021-12-07 Surgery Zachery Amir [facility] [id number] 18:00:00 19:30:00 [facility] 2021-12-07 2021-12-07 [facility] [id number] 18:00:00 19:30:00 [facility] 2021-12-06 2021-12-06 Travel [facility] [id number] [facility] 00:[facility]:00 [facility] 2021-12-06 2021-12-06 Travel [facility] [id number] [facility] 00:[facility] 00:[facility]00 [facility] 2021-10-30 2021-10-30 Transition GRIS León 1.2.840.114 [id number] Univers 00:00:00 00:00:00 of Care Clifford WILSON 350.1.13.10 ity of [place] 4.2.7.2.686 [facility] [phone] [facility] [address] 2021-10-21 2021-10-27 Outpatient X TG DEJOSE BRENDEN [id number] Univers 10:42:00 13:31:00 WERO pelaez of [facility] 2021-10-21 2021-10-[address] [facility] 1.2.840 .114 [id number] Univers 10:42:00 13:31:00 Jordon Buckley 350.1.13.10 ity of [place] 4.2.7.2.686 [facility] [id number] [facility] [address] 2021-08-22 2021-09-05 Inpatient EM Richard, HCACL INTE.02 [id number] [facility] 07:57:00 11:53:00 Benedicto 95 [facility] 2021-08-29 2021-08-29 Outpatient Physician, HCACL HCACL G001 [id number] [facility] 06:03:00 06:03:00 No 56 [facility] 2021-08-24 2021-08-24 Outpatient Richard, HCAMN MLAB [id number] [facility] 12:02:00 12:02:00 Benedicto 48 [facility] 2021-08-08 2021-08-08 Refill Sheri, [facility] 1.2.840.114 [id number] Univers 00:00:00 00:00:00 [facility]ailin [facility].10 [facility] 4.2.7.2.686 Lamonte SIMMONSESSIO [phone] [place] [id number] Branch [facility] 2021-06-10 2021-07-18 [facility] [id number] 17:13:00 02:00:00 [facility]counter [facility]vng Garrett, Ronald Woodruff, Meredith Pierce V. 2021-06-10 2021-07-18 [facility] [id number] [facility] 17:13:00 02:00:00 CHAITANYASHANDAKEN 2021-06-10 2021-07-18 [facility] [id number] 17:13:00 02:00:00 Encounter [facility]col Mendes, [facility], Ronald Ackerman, Meredith Pierce V. 2021-06-25 2021-06-25 Outside [facility], [facility] [id number] 00:00:00 00:00:00 Orders [facility] 2021-06-17 2021-06-17 Outpatient [facility] [id number] [facility] 00:00:00 23:59:00 [facility] 2021-06-17 2021-06-17 Orders [facility] [id number] 00:00:00 00:00:00 Only [facility] 2021-06-14 2021-06-14 Outpatient R SHERI [facility] [id number] Univers 13:30:00 13:30:00 SENDIL ity [facility] 2021-05-31 2021-05-31 [facility] [id number] Univers 00:00:00 00:00:00 Sendil Letty DILLARD 350.1.13.10 ity [facility] [place] [phone] Md dical NAL 059 [facility] 2021-05-12 2021-05-12 [facility] [id number] Univers 14:00:00 14:00:00 SENDIL [facility] 2021-03-23 2021-03-23 [facility] [id number] Univers 00:00:00 00:00:00 Sendil Letty DILLARD 350.1.13.10 ity of [place] [phone] Md dical NAL 059 [facility] 2021-03-03 2021-03-03 Orders Doctor GALDAMEZ 1.2.840.114 [id number] Univers 00:00:00 00:00:00 Only Unassigned, JOYCE 350.1.13.10 [facility] 4.2.7.2.686 Jameel as [phone] [address] 2021-02-23 2021-02-23 Outpatient R [facility] [id number] Univers 13:00:00 13:33:16 SENDIL ity of [facility] 2021-02-23 2021-02-[address] [facility] 1.2.840.114 [id number] Univers 12:49:37 13:33:16 Visit Cailin Dillard 350.1.13.10 it[place] [phone] Md dic[address] 2021-02-23 2021-02-23 Orders Doctor WILMAR 1.2.840.114 [id number] Univers 00:00:00 00:00:00 Only Unassigned, JOCYE 350.1.13.10 ity of [place] [facility] 4.2.7.2.686 Jameel as [phone] [address] 2021-02-03 2021-02-[address] [facility] [id number] [id number] Univers 00:00:00 00:00:00 Cailin Dillard 350.1.13.10 [place] [phone] Md dicnm lars [address] [place] [address] 2021-02-03 2021-02-[address] [facility] 1.2.466.614 [id number] Univers 00:00:00 00:00:00 Cailin Dillard 350.1.13.10 [place] [phone] Md dicnm nal [address] [place] [address] 2021-01-31 2021-01-31 Outpatient R JAQUELIN [facility] [id number] Univers 11:40:00 16:13:45 KEVIN ity [facility] 2021-01-31 2021-01-[address] [facility] 1.2.840.114 [id number] Univers 11:09:12 11:29:12 Visit Kevinalverto Dillard 350.1.13.10 i ty [place] [phone] Md dic[address] 2021-01-30 2021-01-30 [facility] 1.2.840.114 [id number] Univers 13:53:16 23:59:00 Encounter [facility] 350.1.13.10 [place] [phone] [facility] [address] 2021-01-30 2021-01-30 [facility] 1.2.840.114 [id number] Univers 13:52:17 13:52:17 Encounter [facility] 350.1.13.10 it[place] [id number] [place] [id number] Branch 2021-01-30 2021-01-30 Outpatient R [facility] [id number] Univers 13:52:17 13:52:17 SENDIL ity of [facility] 2021-01-26 2021-01-26 [facility] 1.2.840.114 [id number] Univers 10:30:00 23:59:00 Encounter [facility] 350.1.13.10 it[place] [phone] [facility] [address] 2021-01-26 2021-01-26 [facility] 1.2.840.114 [id number] Univers 09:31:39 09:34:00 Encounter [facility] 350.1.13.10 ity [place] [facility] [phone] [facility] [address] 2021-01-26 2021-01-26 [facility] 1.2.840.114 [id number] Univers 09:30:00 09:30:00 Encounter [facility] 350.1.13.10 it[place] [phone] [facility] [address] 2021-01-25 2021-01-25 [facility] [id number] Univers 00:00:00 00:00:00 SENDIL ity of [facility] 2021-01-24 2021-01-24 Orders Doctor WILMAR 1.2.840.114 [id number] Univers 00:00:00 00:00:00 Only Unassigned, JOYCE 350.1.13.10 ity of [place] [facility] 4.2.7.2.686 Jameel as [phone] [address] 2021-01-13 2021-01-13 Telephone Sheri DEJOSE 1.2.673.681 [id number] Univers 00:00:00 00:00:00 Sendlamin Dillard 350.1.13.10 [place] [phone] Md dical nal 059 [facility] 2021-01-12 2021-01-12 Radiation Therapy Technologist 2, Adc Lab [facility] 1.2.840.114 [id number] Univers 14:30:37 14:45:37 Visit Cailin [place] 350.1.13. 10 it[place] of [place] [phone] Md dical nal 353 [facility] 2021-01-12 2021-01-12 Outpatient R SHERI DEJOSE [facility] [id number] Univers 13:30:00 14:26:07 SENDIL ity [facility] 2021-01-12 2021-01-12 Office Sheri DEJOSE 1.2.840.114 [id number] Univers 13:17:33 14:26:07 Visit Cailin [place]illard 350.1.13.10 it[place] [phone] Md dical nal 059 [facility] 2020-12-15 2020-12-15 Outpatient R SHERI DEJOSE [facility] [id number] Univers 09:00:00 09:50:59 SENDIL ity [facility] 2020-12-15 2020-12-15 Office Sheri DEJOSE 1.2.840.114 [id number] 08:50:21 09:50:59 Visit Cailin D[place] 350.1.13.10 [place] 4.2.7.2.686 [facility] [phone] [facility]9 [facility] 2020-08-16 2020-08-16 Inpatient DARRIN MenchacaWSheryl HCAWU [id number] [facility] 07:35:34 07:35:34 Nioti 61 [facility] 2020-08-11 2020-08-11 Emergency X RAMIREZ, [facility] ERT [id number] Univers 14:46:00 22:30:[address] [facility] 2007-02-17 2007-02-18 Outpatient [facility] [id number] Univers 00:00:00 08:13:49 2 [facility] Results Test Description Test Time Test Comments Results Result Comments Source POC-Glucose meter 2021-12-12 12:51:41 Test Item Value Reference Range Interpretation Comme nts POC-Glucose Meter (test code = 129 mg/dL 70-110 H : TESTED AT [facility] 1317 [facility] [address] [address]: Sustainability Specialist/Techni salma ID = [id number] for Dianna Bustillo Lab Interpretation (test code = Abnormal 95085-3) [facility] [id number] 12:51:41 Test Item Value Reference Range Interpretation Comments POC-Glucose Meter (test 129 mg/dL 70-110 H : TE STED AT [facility] code = 1538) [address] [place] 470758: Sustainability Specialist/Techni salma ID = [id number] for Dianna Bustillo Lab Interpretation (test Abnormal code = 02347-2) [facility] [id number] 12:51:41 Test Item Value Reference Range Interpretation Comments POC-GLUCOSE METER 129 mg/dL 70-110 H : TESTED A T [facility] 1317 (BEAKER) (test code [facility], = 1538) [place] [address]: Sustainability Specialist/Techni salma ID = [id number] for Dianna Bustillo POCT-GLUCOSE [id number] 06:18:06 Test Item Value Reference Range Interpretation Comments POC-GLUCOSE METER 107 mg/dL 70-110 : TESTED A T [facility] (BEAKER) (test code [facility], = 1538) [place] [address] 478: Sustainability Specialist/Techni salma ID = [id number] for John h, Barb POCT-GLUCOSE [id number] 19:54:21 Test Item Value Reference Range Interpretation Comments POC-GLUCOSE METER 154 mg/dL 70-110 H : [facility] (test code [facility], = 1538) [place] [address] 478: Sustainability Specialist/Techni salma ID = [id number] for John h, Barb POCT-GLUCOSE [id number] 17:31:21 Test Item Value Reference Range Interpretation Comments POC-GLUCOSE METER 126 mg/dL 70-110 H : [facility] (test code [facility], = 1538) [place] 865888: Sustainability Specialist/Techni salma ID = [id number] for Buff ord, Kirsty POCT-GLUCOSE [id number] 12:17:07 Test Item Value Reference Range Interpretation Comments POC-GLUCOSE METER 110 mg/dL 70-110 : TESTED A T [facility] 1317 ([facility]) (test code [facility], = 1538) [place] [address] 478: Sustainability Specialist/Techni salma ID = [id number] for Buff ord, Kirsty POCT-GLUCOSE [id number] 09:04:29 Test Item Value Reference Range Interpretation Comments POC-GLUCOSE METER 109 mg/dL 70-110 : TESTED A T [facility] 1317 ([facility]) (test code [facility], = 1538) [place] [address] 478: Sustainability Specialist/Techni salma ID = [id number] for Domo Rhodes POCT-GLUCOSE [id number] 06:22:45 Test Item Value Reference Range Interpretation Comments POC-GLUCOSE METER 108 mg/dL 70-110 : Notified RN/MD: TESTED ([facility]) (test code AT [facility] [address] = 1538) [place] 416938: Sustainability Specialist/Techni salma ID = [id number] for Andrew Esposito POCT-GLUCOSE [id number] 20:59:26 Test Item Value Reference Range Interpretation Comments POC-GLUCOSE METER 161 mg/dL 70-110 H : Notified RN/MD: TESTED (BEAKER) (test code AT [facility] [address] = 1538) [place] [address]: Sustainability Specialist/Techni salma ID = [id number] for Andrew Esposito POCT-GLUCOSE [id number] 17:58:29 Test Item Value Reference Range Interpretation Comments POC-GLUCOSE METER 135 mg/dL 70-110 H : Notified RN/MD: TESTED (BEAKER) (test code AT [facility] [address] = 1538) [place] [address]: Sustainability Specialist/Techni salma ID = [id number] for Zakia Rodrigues POCT-GLUCOSE [id number] 11:27:34 Test Item Value Reference Range Interpretation Comments POC-GLUCOSE METER 140 mg/dL 70-110 H : Notified RN/MD: [facility] (test code AT [facility] [address] = 1538) [place] [address]: Sustainability Specialist/Techni salma ID = [id number] for Israel Celaya [id number] 06:50:40 Test Item Value Reference Range Interpretation Comments MAGNESIUM (BEAKER) (test code = 2.0 mg/dL 1.5-3.0 627) Sustainability Specialist ID - [id number] ID - [id number] ID - [id number] ID - [id number] METABOLIC [id number] 06:49:17 Test Item Value Reference Range Interpretation Comments SODIUM (BEAKER) 142 meq/L 135-148 (test code = 381) POTASSIUM 3.7 meq/L 3.6-5.5 (BEAKER) (test code = 379) CHLORIDE (BEAKER) 105 meq/L 98-106 (test code = 382) CO2 (BEAKER) 27 meq/L 20-29 (test code = 355) BLOOD UREA 17 mg/dL 10-26 NITROGEN (BEAKER) (test code = 354) CREATININE 1.07 mg/dL 0.50-1.20 (BEAKER) (test code = 358) GLUCOSE RANDOM 110 mg/dL 70-110 (BEAKER) (test code = 652) CALCIUM (BEAKER) 9.8 mg/dL 8.5-10.5 (test code = 697) EGFR (BEAKER) 74 Interpretatio n of eGFR (test code = mL/min/1.73 values Stage De scription 1092) sq m Result G1 Marleen l or high >=90 G2 Mildly decreased 60-89 G3a Mildl y to moderately 45-5 9 G3b Moderately to s everely 30-44 G4 Severl y decreased 15-29 G5 Kidney failure <15Reported eGF R is based on the CKD-EPI 2020 equation that d oes not use a race coefficientEsti mated GFR is not as accur ate as Creatinine Caitlin samuel in predicting glom erular filtration rate . Estimated GFR is not appl icable for dialysis patien ts Sustainability Specialist ID - [id number] ID - [id number] ID - [id number] ID - [id number] ID - [id number] ID - [id number] ID - [id number] ID - [id number] ID - [id number] 06:47:56 Test Item Value Reference Range Interpretation Comments PHOSPHORUS (BEAKER) (test code = 3.2 mg/dL 2.5-4.5 604) Sustainability Specialist ID - [id number] W/PLT COUNT & AUTO [id number] 06:30:51 Test Item Value Reference Range Interpretation Comments WHITE BLOOD CELL COUNT (BEAKER) 7.0 K/ L 4.0-10.0 (test code = 775) RED BLOOD CELL COUNT (BEAKER) 3.52 M/ L 4.20-5.80 L (test code = 761) HEMOGLOBIN (BEAKER) (test code = 9.9 GM/DL 13.0-16.8 L 410) HEMATOCRIT (BEAKER) (test code = 31.4 % 36.0-50.0 L 411) MEAN CORPUSCULAR VOLUME (BEAKER) 89.2 fL 82.0-99.0 (test code = 753) MEAN CORPUSCULAR HEMOGLOBIN 28.1 pg 27.0-33.0 (BEAKER) (test code = 751) MEAN CORPUSCULAR HEMOGLOBIN CONC 31.5 GM/DL 32.0-36.0 L (BEAKER) (test code = 752) RED CELL DISTRIBUTION WIDTH 17.2 % 12.0-15.0 H (BEAKER) (test code = 412) PLATELET COUNT (BEAKER) (test 205 K/CU MM 150-430 code = 756) MEAN PLATELET VOLUME (BEAKER) 9.9 fL 6.0-11.5 (test code = 754) NUCLEATED RED BLOOD CELLS 0 /100 WBC 0-0 (BEAKER) (test code = 413) NEUTROPHILS RELATIVE PERCENT 63 % (BEAKER) (test code = 429) LYMPHOCYTES RELATIVE PERCENT 21 % (BEAKER) (test code = 430) MONOCYTES RELATIVE PERCENT 12 % (BEAKER) (test code = 431) EOSINOPHILS RELATIVE PERCENT 3 % (BEAKER) (test code = 432) BASOPHILS RELATIVE PERCENT 1 % (BEAKER) (test code = 437) NEUTROPHILS ABSOLUTE COUNT 4.40 K/ L 1.80-8.00 (BEAKER) (test code = 670) LYMPHOCYTES ABSOLUTE COUNT 1.49 K/ L 1.48-4.50 (BEAKER) (test code = 414) MONOCYTES ABSOLUTE COUNT (BEAKER) 0.83 K/ L 0.00-1.30 (test code = 415) EOSINOPHILS ABSOLUTE COUNT 0.18 K/ L 0.00-0.50 (BEAKER) (test code = 416) BASOPHILS ABSOLUTE COUNT (BEAKER) 0.06 K/ L 0.00-0.20 (test code = 417) IMMATURE GRANULOCYTES-RELATIVE 0 % 0-0 PERCENT (BEAKER) (test code = 2801) POCT-GLUCOSE [id number] 06:11:40 Test Item Value Reference Range Interpretation Comments POC-GLUCOSE METER 110 mg/dL 70-110 : TESTED A T [facility] [address] (BEAKER) (test code [address], = 1538) [place] [address]: Sustainability Specialist/Techni salma ID = [id number] for Zulema Estevez POCT-GLUCOSE [id number] 21:22:05 Test Item Value Reference Range Interpretation Comments POC-GLUCOSE METER 156 mg/dL 70-110 H : TESTED A T [facility] [address] (BEAKER) (test code [address], = 1538) [place] [address]: Sustainability Specialist/Techni salma ID = [id number] for Bette Gonzalez POCT-GLUCOSE [id number] 17:40:53 Test Item Value Reference Range Interpretation Comments POC-GLUCOSE METER 128 mg/dL 70-110 H : Notified RN/MD: TESTED (BEAKER) (test code AT [facility] [address] = 1538) [facility] [address]: Sustainability Specialist/Techni salma ID = [id number] for Israel Celaya POCT-GLUCOSE [id number] 11:26:28 Test Item Value Reference Range Interpretation Comments POC-GLUCOSE METER 123 mg/dL 70-110 H : Notified RN/MD: TESTED (BEAKER) (test code AT [facility] [address] = 1538) [facility] [address]: Sustainability Specialist/Techni salma ID = [id number] for Jarad Celayabeunique BASIC METABOLIC [id number] 05:01:38 Test Item Value Reference Range Interpretation Comments SODIUM (BEAKER) 141 meq/L 135-148 (test code = 381) POTASSIUM 3.5 meq/L 3.6-5.5 L (BEAKER) (test code = 379) CHLORIDE (BEAKER) 102 meq/L 98-106 (test code = 382) CO2 (BEAKER) 28 meq/L 20-29 (test code = 355) BLOOD UREA 16 mg/dL 10-26 NITROGEN (BEAKER) (test code = 354) CREATININE 1.01 mg/dL 0.50-1.20 (BEAKER) (test code = 358) GLUCOSE RANDOM 110 mg/dL 70-110 (BEAKER) (test code = 652) CALCIUM (BEAKER) 10.1 mg/dL 8.5-10.5 (test code = 697) EGFR (BEAKER) 79 Interpretatio n of eGFR (test code = mL/min/1.73 values Stage De scription 1092) sq m Result G1 Marleen l or high >=90 G2 Mildly decreased 60-89 G3a Mildl y to moderately 45-5 9 G3b Moderately to s everely 30-44 G4 Severl y decreased 15-29 G5 Kidney failure <15Reported eGF R is based on the CKD-EPI 2020 equation that d oes not use a race coefficientEsti mated GFR is not as accur ate as Creatinine Caitlin baker in predicting glom erular filtration rate . Estimated GFR is not appl icable for dialysis patien ts Sustainability Specialist ID - [id number] ID - [id number] ID - [id number] ID - [id number] - [id number] ID - [id number] ID - [id number] ID - [id number] ID - [id number] ID - [id number] 04:45:54 Test Item Value Reference Range Interpretation Comments MAGNESIUM (BEAKER) (test code = 2.0 mg/dL 1.5-3.0 627) Sustainability Specialist ID - [id number] ID - [id number] ID - [id number] ID - [id number] 04:43:12 Test Item Value Reference Range Interpretation Comments PHOSPHORUS (BEAKER) (test code = 2.5 mg/dL 2.5-4.5 604) Sustainability Specialist ID - [id number] W/PLT COUNT & AUTO [id number] 04:24:07 Test Item Value Reference Range Interpretation Comments WHITE BLOOD CELL COUNT (BEAKER) 8.4 K/ L 4.0-10.0 (test code = 775) RED BLOOD CELL COUNT (BEAKER) 3.52 M/ L 4.20-5.80 L (test code = 761) HEMOGLOBIN (BEAKER) (test code = 9.9 GM/DL 13.0-16.8 L 410) HEMATOCRIT (BEAKER) (test code = 31.3 % 36.0-50.0 L 411) MEAN CORPUSCULAR VOLUME (BEAKER) 88.9 fL 82.0-99.0 (test code = 753) MEAN CORPUSCULAR HEMOGLOBIN 28.1 pg 27.0-33.0 (BEAKER) (test code = 751) MEAN CORPUSCULAR HEMOGLOBIN CONC 31.6 GM/DL 32.0-36.0 L (BEAKER) (test code = 752) RED CELL DISTRIBUTION WIDTH 17.1 % 12.0-15.0 H (BEAKER) (test code = 412) PLATELET COUNT (BEAKER) (test 226 K/CU MM 150-430 code = 756) MEAN PLATELET VOLUME (BEAKER) 10.6 fL 6.0-11.5 (test code = 754) NUCLEATED RED BLOOD CELLS 0 /100 WBC 0-0 (BEAKER) (test code = 413) NEUTROPHILS RELATIVE PERCENT 73 % (BEAKER) (test code = 429) LYMPHOCYTES RELATIVE PERCENT 15 % (BEAKER) (test code = 430) MONOCYTES RELATIVE PERCENT 10 % (BEAKER) (test code = 431) EOSINOPHILS RELATIVE PERCENT 2 % (BEAKER) (test code = 432) BASOPHILS RELATIVE PERCENT 1 % (BEAKER) (test code = 437) NEUTROPHILS ABSOLUTE COUNT 6.10 K/ L 1.80-8.00 (BEAKER) (test code = 670) LYMPHOCYTES ABSOLUTE COUNT 1.24 K/ L 1.48-4.50 L (BEAKER) (test code = 414) MONOCYTES ABSOLUTE COUNT (BEAKER) 0.83 K/ L 0.00-1.30 (test code = 415) EOSINOPHILS ABSOLUTE COUNT 0.17 K/ L 0.00-0.50 (BEAKER) (test code = 416) BASOPHILS ABSOLUTE COUNT (BEAKER) 0.06 K/ L 0.00-0.20 (test code = 417) IMMATURE GRANULOCYTES-RELATIVE 0 % 0-0 PERCENT (BEAKER) (test code = 2801) POCT-GLUCOSE [id number] 23:43:13 Test Item Value Reference Range Interpretation Comments POC-GLUCOSE METER 108 mg/dL 70-110 : TESTED A T [facility] (BEAKER) (test code [facility], = 1538) [place] [id number]: Sustainability Specialist/Techni salma ID = [id number] for Aanu siem, felicity POCT-GLUCOSE [id number] 20:56:29 Test Item Value Reference Range Interpretation Comments POC-GLUCOSE METER 126 mg/dL 70-110 H : TESTED A T [facility] (BEAKER) (test code [facility], = 1538) [place] [id number]: Sustainability Specialist/Techni salma ID = [id number] for Aanu siem, felicity CT, BRAIN, WITHOUT [id number] 19:41:00Fall with impact on forehead [facility] : 1950 Sex: MFINAL REPORT CT, BRAIN, WITHOUT CONTRAST CLINICAL INDICATION: Head trauma, minor (Age >= 65y) COMPARISON: None TECHNIQUE: Noncontrast axial CT imaging of the brain and skull. DOSEREDUCTION: Dose modulation, iterative reconstruction, and/or weight-based adjustment of the mA/kV was utilized to reduce the radiation dose to as low as reasonably achievable. FINDINGS:No intracranial hemorrhage, midline shift or mass effect. Moderate background senescent parenchymal volume loss with prominent extra-axial CSF spaces and sulci. Scattered foci of hypoattenuation are present throughout the periventricular and subcortical white matter, and, although nonspecific by imaging, statisticallyrepresent mild chronic microvascular ischemic changes in this age group. No hydrocephalus. Orbits are within normal limits. No obstructive paranasal sinus disease. Atherosclerotic calcification of the i ntracranial internal carotid arteries. IMPRESSION: No acute intracranial findings If there is persistent clinical concern for intracranial pathology, MR examination is recommended for further characterization. Signed: Luke Parikh MDReport Verified Date/Time: 12/08/2021 19:41:33 POCT-GLUCOSE [id number] 12:22:31 Test Item Value Reference Range Interpretation Comments POC-GLUCOSE METER 126 mg/dL 70-110 H : [facility] ([facility]) (test code [address], = 1538) [facility] [place] [address]: Sustainability Specialist/Techni salma ID = [id number] for Ivanna Chin [id number] 04:42:35 Test Item Value Reference Range Interpretation Comments MAGNESIUM (BEAKER) 2.2 mg/dL 1.5-3.0 Specimen slightly (test code = 627) hemolyzed Sustainability Specialist ID - LITOOperator ID - LITOOperator ID - LITOOperator ID - LITOBASIC METABOLIC [id number] 04:41:15 Test Item Value Reference Range Interpretation Comments SODIUM (BEAKER) 141 meq/L 135-148 (test code = 381) POTASSIUM 3.6 meq/L 3.6-5.5 Specimen slight ly (BEAKER) (test hemolyzed code = 379) CHLORIDE (BEAKER) 102 meq/L 98-106 (test code = 382) CO2 (BEAKER) 28 meq/L 20-29 (test code = 355) BLOOD UREA 21 mg/dL 10-26 NITROGEN (BEAKER) (test code = 354) CREATININE 0.95 mg/dL 0.50-1.20 Specimen slight ly (BEAKER) (test hemolyzed code = 358) GLUCOSE RANDOM 107 mg/dL 70-110 (BEAKER) (test code = 652) CALCIUM (BEAKER) 9.6 mg/dL 8.5-10.5 (test code = 697) EGFR (BEAKER) 86 Interpretatio n of eGFR (test code = mL/min/1.73 values Stage D escription 1092) sq m Result G1 Marleen l or high >=90 G2 Mildly decreased 60-89 G3a Mildl y to moderately 45-5 9 G3b Moderately to s everely 30-44 G4 Severl y decreased 15-29 G5 Kidney failure <15Reported eGF R is based on the CKD-EPI 2020 equation that d oes not use a race coefficientEsti mated GFR is not as accur ate as Creatinine Caitlin baker in predicting glom erular filtration rate . Estimated GFR is not appl icable for dialysis patien ts Sustainability Specialist ID - LITOOperator ID - LITOOperator ID - LITOOperator ID - LITOOperator ID - LITOOperator ID - LITOOperator ID - LITOOperator ID - LITOOperator ID - [id number] 04:39:51 Test Item Value Reference Range Interpretation Comments PHOSPHORUS (BEAKER) 2.8 mg/dL 2.5-4.5 Specimen slightly (test code = 604) hemolyzed Sustainability Specialist ID - [id number] W/PLT COUNT & AUTO [id number] 04:28:28 Test Item Value Reference Range Interpretation Comments WHITE BLOOD CELL COUNT (BEAKER) 9.0 K/ L 4.0-10.0 (test code = 775) RED BLOOD CELL COUNT (BEAKER) 3.31 M/ L 4.20-5.80 L (test code = 761) HEMOGLOBIN (BEAKER) (test code = 9.2 GM/DL 13.0-16.8 L 410) HEMATOCRIT (BEAKER) (test code = 29.4 % 36.0-50.0 L 411) MEAN CORPUSCULAR VOLUME (BEAKER) 88.8 fL 82.0-99.0 (test code = 753) MEAN CORPUSCULAR HEMOGLOBIN 27.8 pg 27.0-33.0 (BEAKER) (test code = 751) MEAN CORPUSCULAR HEMOGLOBIN CONC 31.3 GM/DL 32.0-36.0 L (BEAKER) (test code = 752) RED CELL DISTRIBUTION WIDTH 17.2 % 12.0-15.0 H (BEAKER) (test code = 412) PLATELET COUNT (BEAKER) (test 218 K/CU MM 150-430 code = 756) MEAN PLATELET VOLUME (BEAKER) 10.0 fL 6.0-11.5 (test code = 754) NUCLEATED RED BLOOD CELLS 0 /100 WBC 0-0 (BEAKER) (test code = 413) NEUTROPHILS RELATIVE PERCENT 75 % (BEAKER) (test code = 429) LYMPHOCYTES RELATIVE PERCENT 12 % (BEAKER) (test code = 430) MONOCYTES RELATIVE PERCENT 9 % (BEAKER) (test code = 431) EOSINOPHILS RELATIVE PERCENT 2 % (BEAKER) (test code = 432) BASOPHILS RELATIVE PERCENT 1 % (BEAKER) (test code = 437) NEUTROPHILS ABSOLUTE COUNT 6.76 K/ L 1.80-8.00 (BEAKER) (test code = 670) LYMPHOCYTES ABSOLUTE COUNT 1.09 K/ L 1.48-4.50 L (BEAKER) (test code = 414) MONOCYTES ABSOLUTE COUNT (BEAKER) 0.84 K/ L 0.00-1.30 (test code = 415) EOSINOPHILS ABSOLUTE COUNT 0.19 K/ L 0.00-0.50 (BEAKER) (test code = 416) BASOPHILS ABSOLUTE COUNT (BEAKER) 0.08 K/ L 0.00-0.20 (test code = 417) IMMATURE GRANULOCYTES-RELATIVE 0 % 0-0 PERCENT (BEAKER) (test code = 2801) RAD, CHEST, 1 VIEW, NON [id number] 00:53:00Reason for exam:->post pacemakerShould this be performed at the bedside?->Yes [facility] 1950 Sex: MFINAL REPORT CLINICAL INDICATION: post pacemaker Comparison: Same date at 0928 hours A single view of the chest is submitted. The examination is limited by leftward rotation and exclusion of the lower chest, including components of the left subclavian pacemaker leads. By report, thepatient was unwilling to undergo additional images despite the request of the patient's nurse and the medical laboratory technologist. Within this limitation: There is been interval placement of a left subclavian, dual-lead pacemaker. There is no associated pneumothorax or hematoma. The distal portions of the pacemaker leads are not visualized. There is central vascular engorgement. Bilateral interstitial andairspace opacities centered on the perihilar lungs suggest some combination of atelectasis and edema. Pneumonitis should be excluded clinically. Additional imaging to complete evaluation of the pacemaker can be obtained when clinically feasible. Signed: Carlo Sarmiento Verified Date/Time: 2021 00:53:45 POCT-GLUCOSE [id number] 17:00:46 Test Item Value Reference Range Interpretation Comments POC-GLUCOSE METER 87 mg/dL 70-110 : TESTED A T [facility] (BEAKER) (test code = [address], 1538) [facility] [place] [address]: Sustainability Specialist/Techni salma ID = [id number] for Peggy Gutierrez RAD, CHEST, 1 VIEW, NON [id number] 09:47:00Reason for exam:->pulm edemaShould this be performed at the bedside?->Yes [facility] 1950 Sex: MFINAL REPORT Chest AP portable semierect Comparison exam: 12/05/2021 History provided: Pulmonary edema Heart size magnified by projection. Pulmonary vascular congestion appears improved. No areas of consolidation or atelectasis. Signed: [facility] Verified Date/Time: 12/07/2021 09:47:02 Reading Location: [facility] Radiology Reading Room BASIC METABOLIC [id number] 05:44:43 Test Item Value Reference Range Interpretation Comments SODIUM (BEAKER) 146 meq/L 135-148 (test code = 381) POTASSIUM 3.5 meq/L 3.6-5.5 L (BEAKER) (test code = 379) CHLORIDE (BEAKER) 102 meq/L 98-106 (test code = 382) CO2 (BEAKER) 33 meq/L 20-29 H (test code = 355) BLOOD UREA 28 mg/dL 10-26 H NITROGEN (BEAKER) (test code = 354) CREATININE 1.32 mg/dL 0.50-1.20 H (BEAKER) (test code = 358) GLUCOSE RANDOM 110 mg/dL 70-110 (BEAKER) (test code = 652) CALCIUM (BEAKER) 9.3 mg/dL 8.5-10.5 (test code = 697) EGFR (BEAKER) 58 Interpretatio n of eGFR (test code = mL/min/1.73 values Stage De scription 1092) sq m Result G1 Marleen l or high >=90 G2 Mildly decreased 60-89 G3a Mildl y to moderately 45-5 9 G3b Moderately to s everely 30-44 G4 Severl y decreased 15-29 G5 Kidney failure <15Reported eGF R is based on the CKD-EPI 2020 equation that d oes not use a race coefficientEsti mated GFR is not as accur ate as Creatinine Caitlin samuel in predicting glom erular filtration rate . Estimated GFR is not appl icable for dialysis patien ts Sustainability Specialist ID - [id number] ID - [id number] ID - [id number] ID - [id number] ID - [id number] ID - [id number] ID - [id number] ID - [id number] ID - [id number] ID - [id number]/FREE T4 IF [id number] 05:39:10 Test Item Value Reference Range Interpretation Comments THYROID STIMULATING HORMONE 0.510 uIU/mL 0.350-5.500 (BEAKER) (test code = 772) Sustainability Specialist ID - [id number] 05:23:22 Test Item Value Reference Range Interpretation Comments MAGNESIUM (BEAKER) (test code = 2.0 mg/dL 1.5-3.0 627) Sustainability Specialist ID - [id number] ID - [id number] ID - [id number] ID - [id number] W/PLT COUNT & AUTO [id number] 05:22:55 Test Item Value Reference Range Interpretation Comments WHITE BLOOD CELL COUNT (BEAKER) 7.0 K/ L 4.0-10.0 (test code = 775) RED BLOOD CELL COUNT (BEAKER) 3.32 M/ L 4.20-5.80 L (test code = 761) HEMOGLOBIN (BEAKER) (test code = 9.2 GM/DL 13.0-16.8 L 410) HEMATOCRIT (BEAKER) (test code = 29.3 % 36.0-50.0 L 411) MEAN CORPUSCULAR VOLUME (BEAKER) 88.3 fL 82.0-99.0 (test code = 753) MEAN CORPUSCULAR HEMOGLOBIN 27.7 pg 27.0-33.0 (BEAKER) (test code = 751) MEAN CORPUSCULAR HEMOGLOBIN CONC 31.4 GM/DL 32.0-36.0 L (BEAKER) (test code = 752) RED CELL DISTRIBUTION WIDTH 18.0 % 12.0-15.0 H (BEAKER) (test code = 412) PLATELET COUNT (BEAKER) (test 224 K/CU MM 150-430 code = 756) MEAN PLATELET VOLUME (BEAKER) 10.4 fL 6.0-11.5 (test code = 754) NUCLEATED RED BLOOD CELLS 0 /100 WBC 0-0 (BEAKER) (test code = 413) NEUTROPHILS RELATIVE PERCENT 65 % (BEAKER) (test code = 429) LYMPHOCYTES RELATIVE PERCENT 20 % (BEAKER) (test code = 430) MONOCYTES RELATIVE PERCENT 11 % (BEAKER) (test code = 431) EOSINOPHILS RELATIVE PERCENT 3 % (BEAKER) (test code = 432) BASOPHILS RELATIVE PERCENT 1 % (BEAKER) (test code = 437) NEUTROPHILS ABSOLUTE COUNT 4.58 K/ L 1.80-8.00 (BEAKER) (test code = 670) LYMPHOCYTES ABSOLUTE COUNT 1.39 K/ L 1.48-4.50 L (BEAKER) (test code = 414) MONOCYTES ABSOLUTE COUNT (BEAKER) 0.77 K/ L 0.00-1.30 (test code = 415) EOSINOPHILS ABSOLUTE COUNT 0.20 K/ L 0.00-0.50 (BEAKER) (test code = 416) BASOPHILS ABSOLUTE COUNT (BEAKER) 0.07 K/ L 0.00-0.20 (test code = 417) IMMATURE GRANULOCYTES-RELATIVE 0 % 0-0 PERCENT (BEAKER) (test code = 2801) [id number] 05:20:20 Test Item Value Reference Range Interpretation Comments PHOSPHORUS (BEAKER) (test code = 3.2 mg/dL 2.5-4.5 604) Sustainability Specialist ID - [id number] 05:05:31 Test Item Value Reference Range Interpretation Comments HEMOGLOBIN A1C (BEAKER) (test code = 4.9 % 4.3-6.1 368) Sustainability Specialist ID - [id number] 2D [id number] 22:20:22Ejection FractionSLEH ECHO HEARTLAB MKCKESSON [facility] [id number] 22:20:22Ejection FractionSLEH ECHO HEARTLAB MKCKESSON [facility] [id number] 17:28:22 Test Item Value Reference Range Interpretation Comments POC-GLUCOSE METER 139 mg/dL 70-110 H : TESTED A T [facility] (BEAKER) (test code [address], = 1538) [facility] [place] 77 478: Sustainability Specialist/Techni salma ID = [id number] for Hawk insTanoa POCT-GLUCOSE [id number] 12:03:02 Test Item Value Reference Range Interpretation Comments POC-GLUCOSE METER 98 mg/dL 70-110 : TESTED A T [facility] (BEAKER) (test code = [address], 1538) [facility] [place] [address] 478: Sustainability Specialist/Techni salma ID = [id number] for Hawk insTanoa [id number] 04:40:51 Test Item Value Reference Range Interpretation Comments MAGNESIUM (BEAKER) (test code = 2.2 mg/dL 1.5-3.0 627) Sustainability Specialist ID - LITOOperator ID - LITOOperator ID - LITOOperator ID - LITOBASIC METABOLIC [id number] 04:39:33 Test Item Value Reference Range Interpretation Comments SODIUM (BEAKER) 144 meq/L 135-148 (test code = 381) POTASSIUM 4.0 meq/L 3.6-5.5 (BEAKER) (test code = 379) CHLORIDE (BEAKER) 103 meq/L 98-106 (test code = 382) CO2 (BEAKER) 32 meq/L 20-29 H (test code = 355) BLOOD UREA 19 mg/dL 10-26 NITROGEN (BEAKER) (test code = 354) CREATININE 1.16 mg/dL 0.50-1.20 (BEAKER) (test code = 358) GLUCOSE RANDOM 120 mg/dL 70-110 H (BEAKER) (test code = 652) CALCIUM (BEAKER) 9.4 mg/dL 8.5-10.5 (test code = 697) EGFR (BEAKER) 67 Interpretatio n of eGFR (test code = mL/min/1.73 values Stage De scription 1092) sq m Result G1 Marleen l or high >=90 G2 Mildly decreased 60-89 G3a Mildl y to moderately 45-5 9 G3b Moderately to s everely 30-44 G4 Severl y decreased 15-29 G5 Kidney failure <15Reported eGF R is based on the CKD-EPI 2020 equation that d oes not use a race coefficientEsti mated GFR is not as accur ate as Creatinine Caitlin samuel in predicting glom erular filtration rate . Estimated GFR is not appl icable for dialysis patien ts Sustainability Specialist ID - LITOOperator ID - LITOOperator ID - LITOOperator ID - LITOOperator ID - LITOOperator ID - LITOOperator ID - LITOOperator ID - LITOOperator ID - LITOCBC W/PLT COUNT & AUTO [id number] 04:30:42 Test Item Value Reference Range Interpretation Comments WHITE BLOOD CELL COUNT (BEAKER) 10.6 K/ L 4.0-10.0 H (test code = 775) RED BLOOD CELL COUNT (BEAKER) 3.53 M/ L 4.20-5.80 L (test code = 761) HEMOGLOBIN (BEAKER) (test code = 10.0 GM/DL 13.0-16.8 L 410) HEMATOCRIT (BEAKER) (test code = 31.8 % 36.0-50.0 L 411) MEAN CORPUSCULAR VOLUME (BEAKER) 90.1 fL 82.0-99.0 (test code = 753) MEAN CORPUSCULAR HEMOGLOBIN 28.3 pg 27.0-33.0 (BEAKER) (test code = 751) MEAN CORPUSCULAR HEMOGLOBIN CONC 31.4 GM/DL 32.0-36.0 L (BEAKER) (test code = 752) RED CELL DISTRIBUTION WIDTH 17.5 % 12.0-15.0 H (BEAKER) (test code = 412) PLATELET COUNT (BEAKER) (test 242 K/CU MM 150-430 code = 756) MEAN PLATELET VOLUME (BEAKER) 10.0 fL 6.0-11.5 (test code = 754) NUCLEATED RED BLOOD CELLS 0 /100 WBC 0-0 (BEAKER) (test code = 413) NEUTROPHILS RELATIVE PERCENT 78 % (BEAKER) (test code = 429) LYMPHOCYTES RELATIVE PERCENT 11 % (BEAKER) (test code = 430) MONOCYTES RELATIVE PERCENT 9 % (BEAKER) (test code = 431) EOSINOPHILS RELATIVE PERCENT 1 % (BEAKER) (test code = 432) BASOPHILS RELATIVE PERCENT 1 % (BEAKER) (test code = 437) NEUTROPHILS ABSOLUTE COUNT 8.29 K/ L 1.80-8.00 H (BEAKER) (test code = 670) LYMPHOCYTES ABSOLUTE COUNT 1.21 K/ L 1.48-4.50 L (BEAKER) (test code = 414) MONOCYTES ABSOLUTE COUNT (BEAKER) 0.91 K/ L 0.00-1.30 (test code = 415) EOSINOPHILS ABSOLUTE COUNT 0.09 K/ L 0.00-0.50 (BEAKER) (test code = 416) BASOPHILS ABSOLUTE COUNT (BEAKER) 0.07 K/ L 0.00-0.20 (test code = 417) IMMATURE GRANULOCYTES-RELATIVE 0 % 0-0 PERCENT (BEAKER) (test code = 2801) RAD, CHEST, 1 VIEW, NON [id number] 03:20:00Reason for exam:->eval for pulm edemaShould this be performed at the bedside?->Yes [facility] 1950 Sex: MFINAL REPORT History: eval for pulm edema. Comparison: 07/18/2021 Findings: A single view of the chest is submitted. The patient is rotated to the left. The cardiac silhouette is within normal limits for size. Sternotomy wires are in place. There is central pulmonary vascular engorgement. Bilateral perihilar interstitial and airspace opacities suggest pulmonary edema. Superimposed pneumonitis should be excluded clinically. There is no pneumothorax or acute bony abnormality. Signed:Carlo Sarmiento MDReport Verified Date/Time: 12/06/2021 03:20:17 HEMOGLOBIN AND [id number] 23:44:48 Test Item Value Reference Range Interpretation Comments HEMOGLOBIN (BEAKER) (test code = 10.9 GM/DL 13.0-16.8 L 410) HEMATOCRIT (BEAKER) (test code = 34.1 % 36.0-50.0 L 411) POCT-GLUCOSE [id number] 21:36:30 Test Item Value Reference Range Interpretation Comments POC-GLUCOSE METER 131 mg/dL 70-110 H : TESTED A T [facility]17 (BEAKER) (test code [facility] [address], = 1538) [facility] [place] 77 478: Sustainability Specialist/Techni salma ID = [id number] for Rosanne inAbril HEPATIC FUNCTION [id number] 21:20:30 Test Item Value Reference Range Interpretation Comments TOTAL PROTEIN (BEAKER) (test code = 6.3 gm/dL 6.0-8.5 770) ALBUMIN (BEAKER) (test code = 1145) 3.4 g/dL 3.5-5.0 L BILIRUBIN TOTAL (BEAKER) (test code 0.6 mg/dL 0.1-1.2 = 377) BILIRUBIN DIRECT (BEAKER) (test 0.3 mg/dL 0.0-0.4 code = 706) ALKALINE PHOSPHATASE (BEAKER) (test 87 U/L 30-115 code = 346) AST (SGOT) (BEAKER) (test code = 12 U/L 5-40 353) ALT (SGPT) (BEAKER) (test code = 14 U/L 5-50 347) Sustainability Specialist ID - [id number] ID - [id number] ID - [id number] ID - [id number] ID - [id number] ID - [id number] ID - [id number] COMPREHENSIVE METABOLIC [id number] 21:20:30 Test Item Value Reference Range Interpretation Comments TOTAL PROTEIN 6.3 gm/dL 6.0-8.5 (BEAKER) (test code = 770) ALBUMIN (BEAKER) 3.4 g/dL 3.5-5.0 L (test code = 1145) ALKALINE 87 U/L 30-115 PHOSPHATASE (BEAKER) (test code = 346) BILIRUBIN TOTAL 0.6 mg/dL 0.1-1.2 (BEAKER) (test code = 377) SODIUM (BEAKER) 143 meq/L 135-148 (test code = 381) POTASSIUM (BEAKER) 3.8 meq/L 3.6-5.5 (test code = 379) CHLORIDE (BEAKER) 103 meq/L 98-106 (test code = 382) CO2 (BEAKER) (test 28 meq/L 20-29 code = 355) BLOOD UREA 18 mg/dL 10-26 NITROGEN (BEAKER) (test code = 354) CREATININE 1.25 mg/dL 0.50-1.20 H (BEAKER) (test code = 358) GLUCOSE RANDOM 142 mg/dL 70-110 H (BEAKER) (test code = 652) CALCIUM (BEAKER) 9.4 mg/dL 8.5-10.5 (test code = 697) AST (SGOT) 12 U/L 5-40 (BEAKER) (test code = 353) ALT (SGPT) 14 U/L 5-50 (BEAKER) (test code = 347) EGFR (BEAKER) 62 Interpretatio n of eGFR (test code = 1092) mL/min/1.[address] age Description sq m Result G1 Marleen l or high >=90 G2 Mildly decreased 60-89 G3a Mildl y to moderately 45-5 9 G3b Moderately to s everely 30-44 G4 Severl y decreased 15-29 G5 Kidney failure <15Reported eGF R is based on the CKD-EPI 2021 equation that d oes not use a race coefficientEsti mated GFR is not as accur ate as Creatinine Caitlin samuel in predicting glom erular filtration rate . Estimated GFR is not appl icable for dialysis patien ts Sustainability Specialist ID - [id number] ID - [id number] ID - [id number] ID - [id number] ID - [id number] ID - [id number] ID - [id number] ID - [id number] ID - [id number] ID - [id number] 21:20:09 Test Item Value Reference Range Interpretation Comments MAGNESIUM (BEAKER) (test code = 1.7 mg/dL 1.5-3.0 627) Sustainability Specialist ID - [id number] ID - [id number] ID - [id number] ID - [id number] 21:16:50 Test Item Value Reference Range Interpretation Comments PHOSPHORUS (BEAKER) (test code = 2.6 mg/dL 2.5-4.5 604) Sustainability Specialist ID - [id number] 21:13:09 Test Item Value Reference Range Interpretation Comments PROTIME (BEAKER) 12.3 seconds 9.3-12.0 H Final Infor mation (test code = 759) (Auto Outp ut) INR (BEAKER) (test 1.13 See_Comment Final Inf ormation code = 370) (Auto Output) [Automated mess age] The system [employer]obi generated this result transmitted ref erence range: <=5.90. The reference range was not used to int erpret this result as normal/abnormal . RECOMMENDED COUMADIN/WARFARIN INR THERAPY RANGESSTANDARD DOSE: 2.0 - 3.0 Includes: PROPHYLAXIS for venous thrombosis, systemic embolization; TREATMENT for venous thrombosis and/or pulmonary embolus.HIGH RISK: Target INR is 2.5-3.5 for patients with mechanical heart valves.POCT GLUCOSE (AUTOMATED)2021-10-26 01:16:34 Test Item Value Reference Range Interpretation Comments POCT GLU (test code = 7086318365) 114 mg/dL 70-110 H Lab Interpretation (test code = Abnormal 46928-5) [facility] GLUCOSE (AUTOMATED)2021-10-25 22:05:20 Test Item Value Reference Range Interpretation Comments POCT GLU (test code = 8116501905) 74 mg/dL 70-110 Lab Interpretation (test code = Normal 87603-6) [facility] GLUCOSE (AUTOMATED)2021-10-25 16:49:56 Test Item Value Reference Range Interpretation Comments POCT GLU (test code = 5688237118) 117 mg/dL 70-110 H Lab Interpretation (test code = Abnormal 55479-0) [facility] GLUCOSE (AUTOMATED)2021-10-25 12:52:42 Test Item Value Reference Range Interpretation Comments POCT GLU (test code = 2638259437) 115 mg/dL 70-110 H Lab Interpretation (test code = Abnormal 68275-5) [facility] GLUCOSE (AUTOMATED)2021-10-25 12:52:37 Test Item Value Reference Range Interpretation Comments POCT GLU (test code = 2289261116) 127 mg/dL 70-110 H Lab Interpretation (test code = Abnormal 60508-6) [id number] 11:02:33 Test Item Value Reference Range Interpretation Comments NT-proBNP (test code 2810 pg/mL See_Comment H [Autom ated = [id number]) message] The system which generated this result transmitted reference range : <=125. The reference range was not used to interpret this result as normal/abnormal . BANDAR (test code = BANDAR) Biotin has been reported to cause a negative bias, interpret results relative to patient's use of biotin. Lab Interpretation Abnormal (test code = 11233-3) [facility] METABOLIC PANEL (NA, K, CL, CO2, GLUCOSE, BUN, CREATININE, CA)2021-10-25 10:55:12 Test Item Value Reference Range Interpretation Comments NA (test code = 141 mmol/L 135-145 5846271250) K (test code = 4.4 mmol/L 3.5-5.0 2314194826) CL (test code = 103 mmol/L 98-108 0617149933) CO2 TOTAL (test code = 27 mmol/L 23-31 8227271190) AGAP (test code = 2-16 0036786063) BUN (test code = 27 mg/dL 7-23 H 6048690468) GLUCOSE (test code = 123 mg/dL 70-110 H 5219686907) CREATININE (test code = 1.21 mg/dL 0.60-1.25 1488258063) CALCIUM (test code = 10.1 mg/dL 8.6-10.6 8970271502) eGFR (test code = mL/min/1.73m2 5674086978) BANDAR (test code = BANDAR) Association of Glomerular Filtration Rate (GFR) and Staging of Kidney Disease* + --+ --+ ------+| GFR (mL/min/1.73 m2) ?| With Kidney Damage ?| ?Without Kidney Damage+ --------+ --------+ +| ?>90 ?| ?Stage one ?| ? Normal ?+ ---+ ---+ -------+| ?60-89 ?| ?Stage two ?| ? Decreased GFR ? + --+ --+ ------+| ?30-59 ?| ?Stage three ?| ? Stage three ? + --+ --+ ------+| ?15-29 ?| ?Stage four ? | ? Stage four ?+ ---+ ---+ -------+| ?<15 (or dialysis) ? ?| ?Stage five ? | ? Stage five ?+ ---+ ---+ -------+ *Each stage assumes the associated GFR level has been in effect for at least three months. ?Stages 1 to 5, with or without kidney disease, indicate chronic kidney disease. Notes: Determination of stages one and two (with eGFR >59mL/min/1.73 m2) requires estimation of kidney damage for at least three months as defined by structural or functional abnormalities of the kidney, manifested by either:Pathological abnormalities or Markers of kidney damage (including abnormalities in the composition of the blood or urine or abnormalities in imaging tests). Lab Interpretation Abnormal (test code = 62537-8) [facility] WITH [id number] 09:24:19 Test Item Value Reference Range Interpretation Comments WBC (test code = See_Comment [Automated 7688-2) message] The sy stem which generated this result transmitted reference range : 4.20 - 10.70 10*3/?L. The reference range was not used to interpret this result as normal/abnormal . RBC (test code = See_Comment L [Automated 689-8) message] The sy stem which generated this result transmitted reference range : 4.26 - 5.52 10*6/?L. The reference range was not used to interpret this result as normal/abnormal . HGB (test code = 9.7 g/dL 12.2-16.4 L 718-7) HCT (test code = 31.6 % 38.4-49.3 L 4544-3) MCV (test code = 81.2 fL 81.7-95.6 L 787-2) MCH (test code = 24.9 pg 26.1-32.7 L 785-6) MCHC (test code = 30.7 g/dL 31.2-35.0 L 786-4) RDW-SD (test code = 54.7 fL 38.5-51.6 H 65322-2) RDW-CV (test code = 18.7 % 12.1-15.4 H 788-0) PLT (test code = See_Comment [Automated 777-3) message] The sy stem which generated this result transmitted reference range : 150 - 328 10*3/ ?L. The reference r cheri was not used to interpret this result as normal/abnormal . MPV (test code = 9.7 fL 9.8-13.0 L 39940-8) NRBC/100 WBC (test See_Comment [Automat ed code = 6263865690) message] The system which generated this result transmitted reference range : 0.0 - 10.0 /100 WBCs. The refer ence range was not u sed to interpret th is result as normal/abnormal . NRBC x10^3 (test code <0.01 See_Comment [Auto mated = 6923616044) message] The s ystem which generated this result transmitted reference range : 10*3/?L. The reference range was not used to interpret this result as normal/abnormal . GRAN MAT (NEUT) % 67.7 % (test code = 770-8) IMM GRAN % (test code 0.50 % = 2130970768) LYMPH % (test code = 18.5 % 736-9) MONO % (test code = 9.5 % 5905-5) EOS % (test code = 3.0 % 713-8) BASO % (test code = 0.8 % 706-2) GRAN MAT x10^3(ANC) 6.62 10*3/uL 1.99-6.95 (test code = 5986885534) IMM GRAN x10^3 (test 0.05 10*3/uL 0.00-0.06 code = 9485828910) LYMPH x10^3 (test code 1.81 10*3/uL 1.09-3.23 = 731-0) MONO x10^3 (test code 0.93 10*3/uL 0.36-1.02 = 742-7) EOS x10^3 (test code = 0.29 10*3/uL 0.06-0.53 711-2) BASO x10^3 (test code 0.08 10*3/uL 0.01-0.09 = 704-7) Lab Interpretation Abnormal (test code = 72910-4) [facility] GLUCOSE (AUTOMATED)2021-10-24 21:55:13 Test Item Value Reference Range Interpretation Comments POCT GLU (test code = 6813325672) 95 mg/dL 70-110 Lab Interpretation (test code = Normal 46765-7) [facility] GLUCOSE (AUTOMATED)2021-10-24 17:52:25 Test Item Value Reference Range Interpretation Comments POCT GLU (test code = 9481462994) 133 mg/dL 70-110 H Lab Interpretation (test code = Abnormal 20173-4) [id number] 13:33:08 Test Item Value Reference Range Interpretation Comments NT-proBNP (test code 2100 pg/mL See_Comment H [Autom ated = 1608768224) message] The system which generated this result transmitted reference range : <=125. The reference range was not used to interpret this result as normal/abnormal . BANDAR (test code = BANDAR) Biotin has been reported to cause a negative bias, interpret results relative to patient's use of biotin. Lab Interpretation Abnormal (test code = 64382-3) [facility] GLUCOSE (AUTOMATED)2021-10-24 12:54:28 Test Item Value Reference Range Interpretation Comments POCT GLU (test code = 3925065138) 125 mg/dL 70-110 H Lab Interpretation (test code = Abnormal 96735-2) [facility] (NA, K, CL, CO2, GLUCOSE, BUN, CREATININE, CA)2021-10-24 11:27:28 Test Item Value Reference Range Interpretation Comments NA (test code = 144 mmol/L 135-145 4858757310) K (test code = 4.1 mmol/L 3.5-5.0 8227834580) CL (test code = 104 mmol/L 98-108 0754570480) CO2 TOTAL (test code = 29 mmol/L 23-31 7609585952) AGAP (test code = 2-16 9647290045) BUN (test code = 32 mg/dL 7-23 H 7316873221) GLUCOSE (test code = 124 mg/dL 70-110 H 0643657443) CREATININE (test code = 1.32 mg/dL 0.60-1.25 H 5936220623) CALCIUM (test code = 9.8 mg/dL 8.6-10.6 8573288348) eGFR (test code = mL/min/1.73m2 3576642634) BANDAR (test code = BANDAR) Association of Glomerular Filtration Rate (GFR) and Staging of Kidney Disease* + --+ --+ ------+| GFR (mL/min/1.73 m2) ?| With Kidney Damage ?| ?Without Kidney Damage+ --------+ --------+ +| ?>90 ?| ?Stage one ?| ? Normal ?+ ---+ ---+ -------+| ?60-89 ?| ?Stage two ?| ? Decreased GFR ? + --+ --+ ------+| ?30-59 ?| ?Stage three ?| ? Stage three ? + --+ --+ ------+| ?15-29 ?| ?Stage four ? | ? Stage four ?+ ---+ ---+ -------+| ?<15 (or dialysis) ? ?| ?Stage five ? | ? Stage five ?+ ---+ ---+ -------+ *Each stage assumes the associated GFR level has been in effect for at least three months. ?Stages 1 to 5, with or without kidney disease, indicate chronic kidney disease. Notes: Determination of stages one and two (with eGFR >59mL/min/1.73 m2) requires estimation of kidney damage for at least three months as defined by structural or functional abnormalities of the kidney, manifested by either:Pathological abnormalities or Markers of kidney damage (including abnormalities in the composition of the blood or urine or abnormalities in imaging tests). Lab Interpretation Abnormal (test code = 86818-4) [facility] 10:06:33 Test Item Value Reference Range Interpretation Comments MAGNESIUM (test code = 2334430841) 1.8 mg/dL 1.7-2.4 Lab Interpretation (test code = Normal 20546-2) [facility]21 10:06:13 Test Item Value Reference Range Interpretation Comments PHOSPHORUS (test code = 6256341022) 2.9 mg/dL 2.5-5.0 Lab Interpretation (test code = Normal 52191-8) [facility] WITH [id number] 09:33:08 Test Item Value Reference Range Interpretation Comments WBC (test code = See_Comment [Automated 6690-2) message] The sy stem which generated this result transmitted reference range : 4.20 - 10.70 10*3/?L. The reference range was not used to interpret this result as normal/abnormal . RBC (test code = See_Comment L [Automated 789-8) message] The sy stem which generated this result transmitted reference range : 4.26 - 5.52 10*6/?L. The reference range was not used to interpret this result as normal/abnormal . HGB (test code = 9.7 g/dL 12.2-16.4 L 718-7) HCT (test code = 31.9 % 38.4-49.3 L 4544-3) MCV (test code = 82.0 fL 81.7-95.6 787-2) MCH (test code = 24.9 pg 26.1-32.7 L 785-6) MCHC (test code = 30.4 g/dL 31.2-35.0 L 786-4) RDW-SD (test code = 56.1 fL 38.5-51.6 H 34466-7) RDW-CV (test code = 18.6 % 12.1-15.4 H 788-0) PLT (test code = See_Comment [Automated 777-3) message] The sy stem which generated this result transmitted reference range : 150 - 328 10*3/ ?L. The reference r cheri was not used to interpret this result as normal/abnormal . MPV (test code = 10.7 fL 9.8-13.0 06871-2) NRBC/100 WBC (test See_Comment [Automat ed code = 1835953820) message] The system which generated this result transmitted reference range : 0.0 - 10.0 /100 WBCs. The refer ence range was not u sed to interpret th is result as normal/abnormal . NRBC x10^3 (test code <0.01 See_Comment [Auto mated = 7789325567) message] The s ystem which generated this result transmitted reference range : 10*3/?L. The reference range was not used to interpret this result as normal/abnormal . GRAN MAT (NEUT) % 63.6 % (test code = 770-8) IMM GRAN % (test code 0.40 % = 3131456982) LYMPH % (test code = 19.3 % 736-9) MONO % (test code = 12.7 % 5905-5) EOS % (test code = 3.3 % 713-8) BASO % (test code = 0.7 % 706-2) GRAN MAT x10^3(ANC) 5.16 10*3/uL 1.99-6.95 (test code = 5545303763) IMM GRAN x10^3 (test 0.03 10*3/uL 0.00-0.06 code = 0765757396) LYMPH x10^3 (test code 1.57 10*3/uL 1.09-3.23 = 731-0) MONO x10^3 (test code 1.03 10*3/uL 0.36-1.02 H = 742-7) EOS x10^3 (test code = 0.27 10*3/uL 0.06-0.53 711-2) BASO x10^3 (test code 0.06 10*3/uL 0.01-0.09 = 704-7) Lab Interpretation Abnormal (test code = 47793-3) [facility], [id number] 05:34:57 Test Item Value Reference Range Interpretation Comments VIT D 25OH (test code = 34 ng/mL 25-80 44496-7) BANDAR (test code = BANDAR) Deficiency: <20 ng/mLInsufficiency : 20-24 ng/mLOptimal: 25-80 ng/mL Lab Interpretation (test Normal code = 32254-6) [facility] GLUCOSE (AUTOMATED)2021-10-24 01:10:46 Test Item Value Reference Range Interpretation Comments POCT GLU (test code = 0421967473) 116 mg/dL 70-110 H Lab Interpretation (test code = Abnormal 09226-1) [facility] GLUCOSE (AUTOMATED)2021-10-24 01:10:46 Test Item Value Reference Range Interpretation Comments POCT GLU (test code = 9369633565) 74 mg/dL 70-110 Lab Interpretation (test code = Normal 74878-8) [facility] GLUCOSE (AUTOMATED)2021-10-23 16:44:48 Test Item Value Reference Range Interpretation Comments POCT GLU (test code = 2391419448) 103 mg/dL 70-110 Lab Interpretation (test code = Normal 45001-6) [facility] [id number] 15:39:18 ABSOLUTE NEUTROPHILIA AND LYMPHOPENIA. NORMOCYTIC HYPOCHROMIC ANEMIA, CONSISTENT WITH IRON DEFICIENCY ANEMIA. PLATELETS ARE UNREMARKABLE.[facility]viewTROPONIN [id number] 14:35:37 Test Item Value Reference Interpretation Comments Range TROPONIN I (test 0.034 ng/mL See_Comment [Automated code = 6107569092) message] The system which generated this result transmitted reference range : <=0.034. The reference range was not used to interpret this result as normal/abnormal . BANDAR (test code = Reference (Normal) BANDAR) Range (defined by the 99th percentile reference limit): <= 0.034 ng/mL Note: Cardiac troponin begins to rise 3-4 hours after the onset of ischemia. Repeat in 4-6 hours if the sample was drawn within 3-4 hours of the onset of the symptom and found normal. Diagnosis of myocardial injury is made with acute changes in cTn concentrations with at least one serial sample above the 99th percentile upper reference limit (URL), taken together with the patient's clinical presentation. Biotin has been reported to cause a negative bias, interpret results relative to patient's use of biotin. Lab Interpretation Normal (test code = 64541-2) [facility] [id number] 14:32:36 Test Item Value Reference Range Interpretation Comments NT-proBNP (test code 2050 pg/mL See_Comment H [Autom ated = 5546442295) message] The system which generated this result transmitted reference range : <=125. The reference range was not used to interpret this result as normal/abnormal . BANDAR (test code = BANDAR) Biotin has been reported to cause a negative bias, interpret results relative to patient's use of biotin. Lab Interpretation Abnormal (test code = 51680-9) [facility]2021-10-23 12:39:39 Test Item Value Reference Range Interpretation Comments POCT GLU (test code = 2936638595) 102 mg/dL 70-110 Lab Interpretation (test code = Normal 43344-1) [facility]2022-[facility]-20 09:37:58 Test Item Value Reference Range Interpretation Comments MAGNESIUM (test code = 4170425816) 1.8 mg/dL 1.7-2.4 Lab Interpretation (test code = Normal 57497-3) [facility] (NA, K, CL, CO2, GLUCOSE, BUN, CREATININE, CA)2021-10-23 09:37:38 Test Item Value Reference Range Interpretation Comments NA (test code = 142 mmol/L 135-145 6503269598) K (test code = 3.4 mmol/L 3.5-5.0 L 6882214767) CL (test code = 106 mmol/L 98-108 2835602448) CO2 TOTAL (test code = 28 mmol/L 23-31 6047193477) AGAP (test code = 2-16 5523939427) BUN (test code = 32 mg/dL 7-23 H 7286633250) GLUCOSE (test code = 107 mg/dL 70-110 6831037044) CREATININE (test code = 1.32 mg/dL 0.60-1.25 H 5417264823) CALCIUM (test code = 9.2 mg/dL 8.6-10.6 4225235706) eGFR (test code = mL/min/1.73m2 2148078197) BANDAR (test code = BANDAR) Association of Glomerular Filtration Rate (GFR) and Staging of Kidney Disease* + --+ --+ ------+| GFR (mL/min/1.73 m2) ?| With Kidney Damage ?| ?Without Kidney Damage+ --------+ --------+ +| ?>90 ?| ?Stage one ?| ? Normal ?+ ---+ ---+ -------+| ?60-89 ?| ?Stage two ?| ? Decreased GFR ? + --+ --+ ------+| ?30-59 ?| ?Stage three ?| ? Stage three ? + --+ --+ ------+| ?15-29 ?| ?Stage four ? | ? Stage four ?+ ---+ ---+ -------+| ?<15 (or dialysis) ? ?| ?Stage five ? | ? Stage five ?+ ---+ ---+ -------+ *Each stage assumes the associated GFR level has been in effect for at least three months. ?Stages 1 to 5, with or without kidney disease, indicate chronic kidney disease. Notes: Determination of stages one and two (with eGFR >59mL/min/1.73 m2) requires estimation of kidney damage for at least three months as defined by structural or functional abnormalities of the kidney, manifested by either:Pathological abnormalities or Markers of kidney damage (including abnormalities in the composition of the blood or urine or abnormalities in imaging tests). Lab Interpretation Abnormal (test code = 48723-9) [facility]22-[facility]-20 09:37:38 Test Item Value Reference Range Interpretation Comments PHOSPHORUS (test code = 3499703802) 3.0 mg/dL 2.5-5.0 Lab Interpretation (test code = Normal 79059-4) [facility] WITH [id number] 09:06:17 Test Item Value Reference Range Interpretation Comments WBC (test code = See_Comment [Automated 3925-2) message] The sy stem which generated this result transmitted reference range : 4.20 - 10.70 10*3/?L. The reference range was not used to interpret this result as normal/abnormal . RBC (test code = See_Comment L [Automated 724-9) message] The sy stem which generated this result transmitted reference range : 4.26 - 5.52 10*6/?L. The reference range was not used to interpret this result as normal/abnormal . HGB (test code = 8.8 g/dL 12.2-16.4 L 718-7) HCT (test code = 28.1 % 38.4-49.3 L 4544-3) MCV (test code = 81.0 fL 81.7-95.6 L 787-2) MCH (test code = 25.4 pg 26.1-32.7 L 785-6) MCHC (test code = 31.3 g/dL 31.2-35.0 786-4) RDW-SD (test code = 55.0 fL 38.5-51.6 H 45985-0) RDW-CV (test code = 18.6 % 12.1-15.4 H 788-0) PLT (test code = See_Comment [Automated 777-3) message] The sy stem which generated this result transmitted reference range : 150 - 328 10*3/ ?L. The reference r cheri was not used to interpret this result as normal/abnormal . MPV (test code = 10.1 fL 9.8-13.0 80737-5) NRBC/100 WBC (test See_Comment [Automat ed code = 7427745156) message] The system which generated this result transmitted reference range : 0.0 - 10.0 /100 WBCs. The refer ence range was not u sed to interpret th is result as normal/abnormal . NRBC x10^3 (test code <0.01 See_Comment [Auto mated = 1297610025) message] The s ystem which generated this result transmitted reference range : 10*3/?L. The reference range was not used to interpret this result as normal/abnormal . GRAN MAT (NEUT) % 64.5 % (test code = 770-8) IMM GRAN % (test code 0.40 % = 9754955939) LYMPH % (test code = 18.9 % 736-9) MONO % (test code = 11.0 % 5905-5) EOS % (test code = 4.3 % 713-8) BASO % (test code = 0.9 % 706-2) GRAN MAT x10^3(ANC) 5.11 10*3/uL 1.99-6.95 (test code = 5575604020) IMM GRAN x10^3 (test 0.03 10*3/uL 0.00-0.06 code = 1827181784) LYMPH x10^3 (test code 1.50 10*3/uL 1.09-3.23 = 731-0) MONO x10^3 (test code 0.87 10*3/uL 0.36-1.02 = 742-7) EOS x10^3 (test code = 0.34 10*3/uL 0.06-0.53 711-2) BASO x10^3 (test code 0.07 10*3/uL 0.01-0.09 = 704-7) Lab Interpretation Abnormal (test code = 55867-8) [facility] GLUCOSE (AUTOMATED)2021-10-23 04:31:07 Test Item Value Reference Range Interpretation Comments POCT GLU (test code = 4436630200) 189 mg/dL 70-110 H Lab Interpretation (test code = Abnormal 20391-5) [facility] GLUCOSE (AUTOMATED)2021-10-22 22:11:54 Test Item Value Reference Range Interpretation Comments POCT GLU (test code = 9892675890) 148 mg/dL 70-110 H Lab Interpretation (test code = Abnormal 78660-8) [facility]2021-10-22 17:54:54 Test Item Value Reference Range Interpretation Comments Height (test code = in 0590242406) Weight (test code = lbs 3637079528) Systolic BP (test code = mmHg 6794114997) Diastolic BP (test code = mmHg 3752684593) Heart Rate (test code = bpm 9826715423) BSA (test code = 2.30 m2 1585957782) LVOT diameter (test code 2.02 cm = 1681074604) Ao root annulus (test 3.3 cm code = 4714992097) Ao root diam (test code = 3.30 cm 9695573997) Aortic root (test code = 3.3 cm 0546512999) LA size (test code = 4.7 cm 7438275695) ACS (test code = 1.80 cm 1432425989) PV PEAK VELOCITY (test 119.7 cm/s code = 9944305932) PV peak gradient (test mmHg code = 5164590674) MV E-F slope (test code = 65.70 cm/s 8245959545) MV Peak E Francisco (test code 104.2 cm/s = 0793189195) MV valve area p 1/2 5.30 cm2 method (test code = 4997413536) MV dec slope (test code = 753.20 cm/s2 4249057774) MV P1/2t max francisco (test 106.20 cm/s code = 6930235696) LVOT stroke volume (test 53.70 cm3 code = 5907625611) LVOT peak francisco (test code 100.3 cm/s = 6468546906) LVOT mn grad (test code = mmHg 5984452004) AV LVOT peak gradient mmHg (test code = 5200685639) LVOT peak VTI (test code 16.7 cm = 4706179566) LV V1 mean (test code = 56.30 cm/s 6644097625) Aortic valve mean 105.1 cm/s velocity (test code = 5786045594) Ao peak francisco (test code = 206.3 cm/s 7041864284) Ao VTI (test code = 30.5 cm 1638262762) AV area by cont VTI (test 1.8 cm2 code = 5684202864) AV area peak francisco (test 1.6 cm2 code = 2653248377) Ao max PG (test code = 17.00 mm[Hg] 1600690789) AV peak gradient (test mmHg code = 7258243216) AV valve area (test code 1.76 cm2 = 2333361690) AV mean gradient (test mmHg code = 3613927232) MR max PG (test code = 19.30 mm[Hg] 1028782161) MR max francisco (test code = 219.90 cm/s 0910765913) Mr max francisco (test code = 219.9 m/s 8737983273) LVIDD (test code = 4.50 cm 7036992298) IVS (test code = 1.19 cm 3040348684) Interventricular Septum 1.19 cm Diastolic Thickness by 2D (test code = 1511400) LVPWD (test code = 1.32 cm 4330908647) PW (test code = 1.32 cm 0.6-1.4 8504532267) EF(Teich) (test code = 49.90 % 4655003157) LVIDS (test code = 3.30 cm 4307307266) FS (test code = 25 % 7726419425) EF - 2D (test code = 49.90 % 62009665) TR Peak Francisco (test code = 253.8 cm/s 4595072385) Triscuspid Valve mmHg Regurgitation Peak Gradient (test code = 3168244189) Radiology Study observation (narrative) (test code = 82158-1) BANDAR (test code = BANDAR) ?Left?Ventricle: Left ventricle size is normal. Mild basal septal thickening. See diagram for wall motion findings. Mildly reduced systolic function with a visually estimated EF of 40 - 45%. Unable to assess diastolic function due to arrhythmia. ?Tricuspid?Valve: Insufficient regurgant jet to estimate RVSP. ?RA pressure is 10-15 mmHg. ?Left?Atrium: Left atrium is mildly dilated. [facility] GLUCOSE (AUTOMATED)2021-10-22 17:09:32 Test Item Value Reference Range Interpretation Comments POCT GLU (test code = 3617207163) 82 mg/dL 70-110 Lab Interpretation (test code = Normal 73390-3) [facility] GLUCOSE (AUTOMATED)2021-10-22 13:04:19 Test Item Value Reference Range Interpretation Comments POCT GLU (test code = 4489524461) 106 mg/dL 70-110 Lab Interpretation (test code = Normal 67370-4) [facility] Metabolic Panel (NA, K, CL, CO2, GLUCOSE, BUN, CREATININE, CA)2021-10-22 10:45:20 Test Item Value Reference Range Interpretation Comments NA (test code = 143 mmol/L 135-145 1155034693) K (test code = 3.5 mmol/L 3.5-5.0 2043778707) CL (test code = 104 mmol/L 98-108 1208724493) CO2 TOTAL (test code = 29 mmol/L 23-31 0073593469) AGAP (test code = 2-16 0419404443) BUN (test code = 37 mg/dL 7-23 H 3493649970) GLUCOSE (test code = 91 mg/dL 70-110 3258233025) CREATININE (test code = 1.38 mg/dL 0.60-1.25 H 9552279990) CALCIUM (test code = 9.6 mg/dL 8.6-10.6 0244804612) eGFR (test code = mL/min/1.73m2 3986156794) BANDAR (test code = BANDAR) Association of Glomerular Filtration Rate (GFR) and Staging of Kidney Disease* + --+ --+ ------+| GFR (mL/min/1.73 m2) ?| With Kidney Damage ?| ?Without Kidney Damage+ --------+ --------+ +| ?>90 ?| ?Stage one ?| ? Normal ?+ ---+ ---+ -------+| ?60-89 ?| ?Stage two ?| ? Decreased GFR ? + --+ --+ ------+| ?30-59 ?| ?Stage three ?| ? Stage three ? + --+ --+ ------+| ?15-29 ?| ?Stage four ? | ? Stage four ?+ ---+ ---+ -------+| ?<15 (or dialysis) ? ?| ?Stage five ? | ? Stage five ?+ ---+ ---+ -------+ *Each stage assumes the associated GFR level has been in effect for at least three months. ?Stages 1 to 5, with or without kidney disease, indicate chronic kidney disease. Notes: Determination of stages one and two (with eGFR >59mL/min/1.73 m2) requires estimation of kidney damage for at least three months as defined by structural or functional abnormalities of the kidney, manifested by either:Pathological abnormalities or Markers of kidney damage (including abnormalities in the composition of the blood or urine or abnormalities in imaging tests). Lab Interpretation Abnormal (test code = 76391-3) [facility] [id number] 10:42:50 Test Item Value Reference Range Interpretation Comments NT-proBNP (test code 3070 pg/mL See_Comment H [Autom ated = 9133340201) message] The system which generated this result transmitted reference range : <=125. The reference range was not used to interpret this result as normal/abnormal . BANDAR (test code = BANDAR) Biotin has been reported to cause a negative bias, interpret results relative to patient's use of biotin. Lab Interpretation Abnormal (test code = 01721-0) [facility] (Total Cholesterol, Triglycerides, HDL) - [id number] 10:39:48 Test Item Value Reference Range Interpretation Comments CHOL (test code = 106 mg/dL 120-200 L 6854299450) HDL (test code = 25 mg/dL >40 L 4150588524) HDLC RATIO (test code = See_Comment [Au tomated message] 3934709769) The system [employer] generated this result transmit oziel reference range : <=5.0. The refe rence range was not u sed to interpret th is result as normal/abnormal . TRIG (test code = 93 mg/dL 30-170 7174720631) LDL CHOL (test code = 62 mg/dL See_Comment [Auto mated message] 83160-6) The system [employer] generated this result transmit oziel reference range : <=160. The refe rence range was not u sed to interpret th is result as normal/abnormal . VLDL (test code = 19 mg/dL 5-60 8539099348) Lab Interpretation (test Abnormal code = 60282-0) [facility]view[facility] [id number] 10:39:28 Test Item Value Reference Range Interpretation Comments MAGNESIUM (test code = 0931846200) 1.9 mg/dL 1.7-2.4 Lab Interpretation (test code = Normal 22460-1) [facility] with [id number] 09:23:46 Test Item Value Reference Range Interpretation Comments WBC (test code = See_Comment [Automated 6690-2) message] The sy stem which generated this result transmitted reference range : 4.20 - 10.70 10*3/?L. The reference range was not used to interpret this result as normal/abnormal . RBC (test code = See_Comment L [Automated 929-8) message] The sy stem which generated this result transmitted reference range : 4.26 - 5.52 10*6/?L. The reference range was not used to interpret this result as normal/abnormal . HGB (test code = 8.4 g/dL 12.2-16.4 L 718-7) HCT (test code = 27.3 % 38.4-49.3 L 4544-3) MCV (test code = 80.8 fL 81.7-95.6 L 787-2) MCH (test code = 24.9 pg 26.1-32.7 L 785-6) MCHC (test code = 30.8 g/dL 31.2-35.0 L 786-4) RDW-SD (test code = 55.4 fL 38.5-51.6 H 56414-7) RDW-CV (test code = 18.6 % 12.1-15.4 H 788-0) PLT (test code = See_Comment [Automated 777-3) message] The sy stem which generated this result transmitted reference range : 150 - 328 10*3/ ?L. The reference r cheri was not used to interpret this result as normal/abnormal . MPV (test code = 10.4 fL 9.8-13.0 47813-5) NRBC/100 WBC (test See_Comment [Automat ed code = 7429696380) message] The system which generated this result transmitted reference range : 0.0 - 10.0 /100 WBCs. The refer ence range was not u sed to interpret th is result as normal/abnormal . NRBC x10^3 (test code <0.01 See_Comment [Auto mated = 7643254716) message] The s ystem which generated this result transmitted reference range : 10*3/?L. The reference range was not used to interpret this result as normal/abnormal . GRAN MAT (NEUT) % 70.0 % (test code = 770-8) IMM GRAN % (test code 0.30 % = 9139327799) LYMPH % (test code = 16.3 % 736-9) MONO % (test code = 10.2 % 5905-5) EOS % (test code = 2.5 % 713-8) BASO % (test code = 0.7 % 706-2) GRAN MAT x10^3(ANC) 4.99 10*3/uL 1.99-6.95 (test code = 7952859294) IMM GRAN x10^3 (test <0.03 0.00-0.06 code = 0602506824) LYMPH x10^3 (test code 1.16 10*3/uL 1.09-3.23 = 731-0) MONO x10^3 (test code 0.73 10*3/uL 0.36-1.02 = 742-7) EOS x10^3 (test code = 0.18 10*3/uL 0.06-0.53 711-2) BASO x10^3 (test code 0.05 10*3/uL 0.01-0.09 = 704-7) Lab Interpretation Abnormal (test code = 49228-6) [facility] [id number] 07:25:36 Test Item Value Reference Range Interpretation Comments VIT B12 (test code = 428 pg/mL 240-930 1925184463) BANDAR (test code = BANDAR) Biotin has been reported to cause a positive bias, interpret results relative to patient's use of biotin. Lab Interpretation (test Normal code = 94146-6) [facility] 07:25:36 Test Item Value Reference Range Interpretation Comments FOLATE SER (test code = 20.0 ng/mL 3.0-20.0 Slig ht hemolysis 5141478484) Lab Interpretation (test Normal code = 34342-1) [facility]cos[facility] Hemoglobin (A1C)2021-10-22 03:41:06 Test Item Value Reference Range Interpretation Comments HGB A1C (test code = 5.2 % 4.0-5.7 4548-4) BANDAR (test code = BANDAR) Reference RangesNormal: <5.7%Prediabetes: 5.7 - 6.4%Diabetes: > 6.5% Lab Interpretation (test Normal code = 55420-7) [facility] (AUTOMATED)2021-10-22 01:34:25 Test Item Value Reference Range Interpretation Comments POCT GLU (test code = 3076444253) 174 mg/dL 70-110 H Lab Interpretation (test code = Abnormal 79032-0) [facility]TROPON[facility] [id number] 23:34:19 Test Item Value Reference Interpretation Comments Range TROPONIN I (test 0.044 ng/mL See_Comment H [Automated code = 9696041510) message] The system which generated this result transmitted reference range : <=0.034. The reference range was not used to interpret this result as normal/abnormal . BANDAR (test code = Reference (Normal) BANDAR) Range (defined by the 99th percentile reference limit): <= 0.034 ng/mL Note: Cardiac troponin begins to rise 3-4 hours after the onset of ischemia. Repeat in 4-6 hours if the sample was drawn within 3-4 hours of the onset of the symptom and found normal. Diagnosis of myocardial injury is made with acute changes in cTn concentrations with at least one serial sample above the 99th percentile upper reference limit (URL), taken together with the patient's clinical presentation. Biotin has been reported to cause a negative bias, interpret results relative to patient's use of biotin. Lab Interpretation Abnormal (test code = 17771-8) [facility]osphorus [id number] 23:21:36 Test Item Value Reference Range Interpretation Comments PHOSPHORUS (test code = 8428594957) 3.4 mg/dL 2.5-5.0 Lab Interpretation (test code = Normal 59746-3) [facility]ERR[facility]IN [id number] 22:13:55 Test Item Value Reference Range Interpretation Comments FERRITIN (test code = 35.7 ng/mL 18.0-464.0 6047870042) BANDAR (test code = BANDAR) Biotin has been reported to cause a negative bias, interpret results relative to patient's use of biotin. Lab Interpretation (test Normal code = 34217-0) [facility]YROID STIMULATING [id number] 22:09:58 Test Item Value Reference Range Interpretation Comments TSH (test code = See_Comment [Automated message] 4480441606) The system [employer] generated this result transmitted ref erence range: 0.45 - 4 .70 mIU/L. The refe rence range was not u sed to interpret this result as normal/abnor mal. Lab Interpretation (test Normal code = 54558-9) [facility]viewIRON [id number] 21:10:12 Test Item Value Reference Range Interpretation Comments IRON (test code = 8646119201) 38 ug/dL 50-160 L TIBC (test code = 8973872466) 303 ug/dL 250-410 % FE SAT (test code = 7481203013) 13 % 20-50 L Lab Interpretation (test code = Abnormal 43979-5) [facility]TROP[facility] [id number] 17:02:18 Test Item Value Reference Interpretation Comments Range TROPONIN I (test 0.037 ng/mL See_Comment H [Automated code = 5844785439) message] The system which generated this result transmitted reference range : <=0.034. The reference range was not used to interpret this result as normal/abnormal . BANDAR (test code = Reference (Normal) BANDAR) Range (defined by the 99th percentile reference limit): <= 0.034 ng/mL Note: Cardiac troponin begins to rise 3-4 hours after the onset of ischemia. Repeat in 4-6 hours if the sample was drawn within 3-4 hours of the onset of the symptom and found normal. Diagnosis of myocardial injury is made with acute changes in cTn concentrations with at least one serial sample above the 99th percentile upper reference limit (URL), taken together with the patient's clinical presentation. Biotin has been reported to cause a negative bias, interpret results relative to patient's use of biotin. Lab Interpretation Abnormal (test code = 03128-6) [facility]viewN-TERMINAL [id number] 16:59:17 Test Item Value Reference Range Interpretation Comments NT-proBNP (test code 1980 pg/mL See_Comment H [Autom ated = 3119417733) message] The system which generated this result transmitted reference range : <=125. The reference range was not used to interpret this result as normal/abnormal . BANDAR (test code = BANDAR) Biotin has been reported to cause a negative bias, interpret results relative to patient's use of biotin. Lab Interpretation Abnormal (test code = 45136-8) [facility]viewCOMP. METABOLIC PANEL (57763)2021-10-21 16:50:57 Test Item Value Reference Range Interpretation Comments NA (test code = 141 mmol/L 135-145 6512722489) K (test code = 4.5 mmol/L 3.5-5.0 5238717992) CL (test code = 105 mmol/L 98-108 6800783481) CO2 TOTAL (test code = 24 mmol/L 23-31 7187078038) AGAP (test code = 2-16 4712104494) BUN (test code = 43 mg/dL 7-23 H 3703554134) GLUCOSE (test code = 109 mg/dL 70-110 4922922387) CREATININE (test code = 1.30 mg/dL 0.60-1.25 H 1754925006) TOTAL BILI (test code = 0.4 mg/dL 0.1-1.6 8223042325) CALCIUM (test code = 9.5 mg/dL 8.6-10.6 8006154081) T PROTEIN (test code = 6.1 g/dL 6.3-8.2 L 4097805793) ALBUMIN (test code = 3.5 g/dL 3.5-5.0 6556831095) ALK PHOS (test code = 79 U/L 34-122 7130506608) ALTv (test code = 14 U/L 5-50 1742-6) AST(SGOT) (test code = 20 U/L 13-40 6535471140) eGFR (test code = mL/min/1.73m2 6269368929) BANDAR (test code = BANDAR) Association of Glomerular Filtration Rate (GFR) and Staging of Kidney Disease* + --+ --+ ------+| GFR (mL/min/1.73 m2) ?| With Kidney Damage ?| ?Without Kidney Damage+ --------+ --------+ +| ?>90 ?| ?Stage one ?| ? Normal ?+ ---+ ---+ -------+| ?60-89 ?| ?Stage two ?| ? Decreased GFR ? + --+ --+ ------+| ?30-59 ?| ?Stage three ?| ? Stage three ? + --+ --+ ------+| ?15-29 ?| ?Stage four ? | ? Stage four ?+ ---+ ---+ -------+| ?<15 (or dialysis) ? ?| ?Stage five ? | ? Stage five ?+ ---+ ---+ -------+ *Each stage assumes the associated GFR level has been in effect for at least three months. ?Stages 1 to 5, with or without kidney disease, indicate chronic kidney disease. Notes: Determination of stages one and two (with eGFR >59mL/min/1.73 m2) requires estimation of kidney damage for at least three months as defined by structural or functional abnormalities of the kidney, manifested by either:Pathological abnormalities or Markers of kidney damage (including abnormalities in the composition of the blood or urine or abnormalities in imaging tests). Lab Interpretation Abnormal (test code = 10557-0) [facility]viewLIPASE2022-06-18 16:50:16 Test Item Value Reference Range Interpretation Comments LIPASE (test code = 6099747496) 44 U/L 0-220 Lab Interpretation (test code = Normal 86810-1) [facility] WITH [id number] 16:28:13 Test Item Value Reference Range Interpretation Comments WBC (test code = See_Comment [Automated 6690-2) message] The sy stem which generated this result transmitted reference range : 4.20 - 10.70 10*3/?L. The reference range was not used to interpret this result as normal/abnormal . RBC (test code = See_Comment L [Automated 789-8) message] The sy stem which generated this result transmitted reference range : 4.26 - 5.52 10*6/?L. The reference range was not used to interpret this result as normal/abnormal . HGB (test code = 8.3 g/dL 12.2-16.4 L 718-7) HCT (test code = 27.1 % 38.4-49.3 L 4544-3) MCV (test code = 81.9 fL 81.7-95.6 787-2) MCH (test code = 25.1 pg 26.1-32.7 L 785-6) MCHC (test code = 30.6 g/dL 31.2-35.0 L 786-4) RDW-SD (test code = 55.2 fL 38.5-51.6 H 81524-3) RDW-CV (test code = 18.5 % 12.1-15.4 H 788-0) PLT (test code = See_Comment [Automated 777-3) message] The sy stem which generated this result transmitted reference range : 150 - 328 10*3/ ?L. The reference r cheri was not used to interpret this result as normal/abnormal . MPV (test code = 10.3 fL 9.8-13.0 13757-3) NRBC/100 WBC (test See_Comment [Automat ed code = 9301603032) message] The system which generated this result transmitted reference range : 0.0 - 10.0 /100 WBCs. The refer ence range was not u sed to interpret th is result as normal/abnormal . NRBC x10^3 (test code <0.01 See_Comment [Auto mated = 8821139983) message] The s ystem which generated this result transmitted reference range : 10*3/?L. The reference range was not used to interpret this result as normal/abnormal . GRAN MAT (NEUT) % 80.7 % (test code = 770-8) IMM GRAN % (test code 0.60 % = 2825196032) LYMPH % (test code = 8.3 % 736-9) MONO % (test code = 9.1 % 5905-5) EOS % (test code = 0.7 % 713-8) BASO % (test code = 0.6 % 706-2) GRAN MAT x10^3(ANC) 7.62 10*3/uL 1.99-6.95 H (test code = 2857934633) IMM GRAN x10^3 (test 0.06 10*3/uL 0.00-0.06 code = 4741381163) LYMPH x10^3 (test code 0.78 10*3/uL 1.09-3.23 L = 731-0) MONO x10^3 (test code 0.86 10*3/uL 0.36-1.02 = 742-7) EOS x10^3 (test code = 0.07 10*3/uL 0.06-0.53 711-2) BASO x10^3 (test code 0.06 10*3/uL 0.01-0.09 = 704-7) Lab Interpretation Abnormal (test code = 67103-8) [facility] As[facility]omatic IH [id number] 04:39:00 Test Item Value Reference Range Interpretation Comments COVID 19 Asymptomatic Negative Negative A nega tive result is IH AG (test code = presumpti ve and should COVNONPUIAG) be confirmedwit h an FDA authorized mole cular assay, if neces khushi forpatient jurgen gement.A positive result does not rule out co-inf ections withother patho gens.This test detects jan th viable (live) and non-viable,SARS -CoV, and SARS-CoV-2. Colin t performance dep ends on theamount of vi mango (antigen) in th e sample.This colin t has not been FDA cleare d or approved; the t est hasbeen authori zed by FDA under an Em ergency Use Authorizati on(EUA) for use by labo ratories certified under the CLIA thatmeet the requirements to perform moderate, high or waivedcomplexit y tests. [id number] 12:02:00 Test Item Value Reference Range Interpretation Comments ALBUMIN (test code = ALB) 3.00 g/dL 3.4-5.0 L [id number] 12:02:00 Test Item Value Reference Range Interpretation Comments PREALBUMIN (test code = PREALB) 10.9 mg/dL 16.0-40.0 L INFECTION CONTROL [id number] 09:43:00 Test Item Value Reference Range Interpretation Comments HEPATITIS C RNA HCV Not Dete ctedNo BY PCR-QUAL (test evidence o f active code = HCVRNAPCR) HCV infect ion. 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 [facility] GLUCOSE [id number] 19:56:00 Test Item Value Reference Range Interpretation Comments GLUCOSE BEDSIDE (test 186 MG/DL 70-110 H Perfor med by certified code = GLUBED) 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 [facility] GLUCOSE [id number] 15:46:00 Test Item Value Reference Range Interpretation Comments GLUCOSE BEDSIDE (test 90 MG/DL 70-110 N Perfor med by certified code = GLUBED) 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 [facility] BASIC METABOLIC [id number] 15:42:00 Test Item Value Reference Range Interpretation Comments SODIUM (test code = NA) 144 mEq/L 134-147 N POTASSIUM (test code = 4.1 mEq/L 3.4-5.0 N K) CHLORIDE (test code = 107 mEq/L 100-108 N CL) CARBON DIOXIDE (test 34 mEq/l 21-33 H code = CO2) ANION GAP (test code = 7 0-20 N GAP) GLUCOSE (test code = 96 mg/dL 70-110 N GLU) BLOOD UREA NITROGEN 23 mg/dL 7-18 H (test code = BUN) GLOMERULAR FILTRATION 65.8 70-80 L Units of measure = RATE (test code = GFR) ml/mi n/1.73 m2 CREATININE (test code = 1.1 mg/dL 0.6-1.3 N CREAT) CALCIUM (test code = 10.1 mg/dL 8.0-10.5 N CA) [id number] 15:42:00 Test Item Value Reference Range Interpretation Comments MAGNESIUM (test code = MAG) 1.93 mg/dL 1.80-2.40 N GLUCOSE [id number] 11:11:00 Test Item Value Reference Range Interpretation Comments GLUCOSE BEDSIDE (test 147 MG/DL 70-110 H Perfor med by certified code = GLUBED) 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 [facility] GLUCOSE [id number] 07:24:00 Test Item Value Reference Range Interpretation Comments GLUCOSE BEDSIDE (test 118 MG/DL 70-110 H Perfor med by certified code = GLUBED) 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 [facility] GLUCOSE [id number] 18:34:00 Test Item Value Reference Range Interpretation Comments GLUCOSE BEDSIDE (test 174 MG/DL 70-110 H Perfor med by certified code = GLUBED) 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 [facility] GLUCOSE [id number] 11:08:00 Test Item Value Reference Range Interpretation Comments GLUCOSE BEDSIDE (test 121 MG/DL 70-110 H Perfor med by certified code = GLUBED) 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 [facility] GLUCOSE [id number] 07:29:00 Test Item Value Reference Range Interpretation Comments GLUCOSE BEDSIDE (test 117 MG/DL 70-110 H Perfor med by certified code = GLUBED) 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 [facility] GLUCOSE [id number] 19:12:00 Test Item Value Reference Range Interpretation Comments GLUCOSE BEDSIDE (test 111 MG/DL 70-110 H Perfor med by certified code = GLUBED) 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 [facility] GLUCOSE [id number] 16:11:00 Test Item Value Reference Range Interpretation Comments GLUCOSE BEDSIDE (test 116 MG/DL 70-110 H Perfor med by certified code = GLUBED) 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 [facility] GLUCOSE [id number] 11:32:00 Test Item Value Reference Range Interpretation Comments GLUCOSE BEDSIDE (test 163 MG/DL 70-110 H Perfor med by certified code = GLUBED) 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 [facility] GLUCOSE [id number] 07:29:00 Test Item Value Reference Range Interpretation Comments GLUCOSE BEDSIDE (test 113 MG/DL 70-110 H Perfor med by certified code = GLUBED) 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 [facility] GLUCOSE [id number] 20:08:00 Test Item Value Reference Range Interpretation Comments GLUCOSE BEDSIDE (test 101 MG/DL 70-110 N Perfor med by certified code = GLUBED) 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 [facility] BASIC METABOLIC [id number] 17:39:00 Test Item Value Reference Range Interpretation Comments SODIUM (test code = NA) 141 mEq/L 134-147 N POTASSIUM (test code = 4.0 mEq/L 3.4-5.0 K) CHLORIDE (test code = 101 mEq/L 100-108 N CL) CARBON DIOXIDE (test 36 mEq/l 21-33 H code = CO2) ANION GAP (test code = 8 0-20 N GAP) GLUCOSE (test code = 106 mg/dL 70-110 N GLU) BLOOD UREA NITROGEN 29 mg/dL 7-18 H (test code = BUN) GLOMERULAR FILTRATION 54.3 70-80 L Units of measure = RATE (test code = GFR) ml/mi n/1.73 m2 CREATININE (test code = 1.3 mg/dL 0.6-1.3 N CREAT) CALCIUM (test code = 10.2 mg/dL 8.0-10.5 N CA) [id number] 17:39:00 Test Item Value Reference Range Interpretation Comments MAGNESIUM (test code = MAG) 2.01 mg/dL 1.80-2.40 N GLUCOSE [id number] 16:18:00 Test Item Value Reference Range Interpretation Comments GLUCOSE BEDSIDE (test 116 MG/DL 70-110 H Perfor med by certified code = GLUBED) 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 [facility] GLUCOSE [id number] 11:56:00 Test Item Value Reference Range Interpretation Comments GLUCOSE BEDSIDE (test 143 MG/DL 70-110 H Perfor med by certified code = GLUBED) 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 [facility] GLUCOSE [id number] 07:45:00 Test Item Value Reference Range Interpretation Comments GLUCOSE BEDSIDE (test 114 MG/DL 70-110 H Perfor med by certified code = GLUBED) 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 [facility] BASIC METABOLIC [id number] 07:34:00 Test Item Value Reference Range Interpretation Comments SODIUM (test code = NA) 142 mEq/L 134-147 N POTASSIUM (test code = 3.3 mEq/L 3.4-5.0 L K) CHLORIDE (test code = 101 mEq/L 100-108 N CL) CARBON DIOXIDE (test 37 mEq/l 21-33 H code = CO2) ANION GAP (test code = 8 0-20 N GAP) GLUCOSE (test code = 102 mg/dL 70-110 N GLU) BLOOD UREA NITROGEN 32 mg/dL 7-18 H (test code = BUN) GLOMERULAR FILTRATION 46.0 70-80 L Units of measure = RATE (test code = GFR) ml/mi n/1.73 m2 CREATININE (test code = 1.5 mg/dL 0.6-1.3 H CREAT) CALCIUM (test code = 10.1 mg/dL 8.0-10.5 N CA) GLUCOSE [id number] 21:08:00 Test Item Value Reference Range Interpretation Comments GLUCOSE BEDSIDE (test 102 MG/DL 70-110 N Perfor med by certified code = GLUBED) 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 [facility] GLUCOSE [id number] 20:23:00 Test Item Value Reference Range Interpretation Comments GLUCOSE BEDSIDE (test 85 MG/DL 70-110 N Perfor med by certified code = GLUBED) 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 [facility] GLUCOSE [id number] 19:08:00 Test Item Value Reference Range Interpretation Comments GLUCOSE BEDSIDE (test 77 MG/DL 70-110 N Perfor med by certified code = GLUBED) 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 [facility] GLUCOSE [id number] 12:45:00 Test Item Value Reference Range Interpretation Comments GLUCOSE BEDSIDE (test 170 MG/DL 70-110 H Perfor med by certified code = GLUBED) 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 [facility] GLUCOSE [id number] 08:20:00 Test Item Value Reference Range Interpretation Comments GLUCOSE BEDSIDE (test 130 MG/DL 70-110 H Perfor med by certified code = GLUBED) 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 [facility] BASIC METABOLIC [id number] 07:31:00 Test Item Value Reference Range Interpretation Comments SODIUM (test code = NA) 143 mEq/L 134-147 N POTASSIUM (test code = 3.6 mEq/L 3.4-5.0 N K) CHLORIDE (test code = 103 mEq/L 100-108 N CL) CARBON DIOXIDE (test 34 mEq/l 21-33 H code = CO2) ANION GAP (test code = 10 0-20 N GAP) GLUCOSE (test code = 115 mg/dL 70-110 H GLU) BLOOD UREA NITROGEN 28 mg/dL 7-18 H (test code = BUN) GLOMERULAR FILTRATION 65.8 70-80 L Units of measure = RATE (test code = GFR) ml/mi n/1.73 m2 CREATININE (test code = 1.1 mg/dL 0.6-1.3 CREAT) CALCIUM (test code = 10.4 mg/dL 8.0-10.5 N CA) GLUCOSE [id number] 20:26:00 Test Item Value Reference Range Interpretation Comments GLUCOSE BEDSIDE (test 135 MG/DL 70-110 H Perfor med by certified code = GLUBED) 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 [facility] GLUCOSE [id number] 16:49:00 Test Item Value Reference Range Interpretation Comments GLUCOSE BEDSIDE (test 116 MG/DL 70-110 H Perfor med by certified code = GLUBED) 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 [facility] GLUCOSE [id number] 12:26:00 Test Item Value Reference Range Interpretation Comments GLUCOSE BEDSIDE (test 150 MG/DL 70-110 H Perfor med by certified code = GLUBED) 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 [facility] COVID 19 Asymptomatic IH [id number] 12:14:00 Test Item Value Reference Range Interpretation Comments COVID 19 Asymptomatic Negative Negative A nega tive result is IH AG (test code = presumpti ve and should COVNONPUIAG) be confirmedwit h an FDA authorized mole cular assay, if neces khushi forpatient jurgen gement.A positive result does not rule out co-inf ections withother patho gens.This test detects jan th viable (live) and non-viable,SARS -CoV, and SARS-CoV-2. Colin t performance dep ends on theamount of vi mango (antigen) in th e sample.This colin t has not been FDA cleare d or approved; the t est hasbeen authori zed by FDA under an Em ergency Use Authorizati on(EUA) for use by labo ratories certified under the CLIA thatmeet the requirements to perform moderate, high or waivedcomplexit y tests. GLUCOSE [id number] 08:15:00 Test Item Value Reference Range Interpretation Comments GLUCOSE BEDSIDE (test 109 MG/DL 70-110 N Perfor med by certified code = GLUBED) 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 [facility] BASIC METABOLIC [id number] 07:16:00 Test Item Value Reference Range Interpretation Comments SODIUM (test code = NA) 142 mEq/L 134-147 N POTASSIUM (test code = 4.2 mEq/L 3.4-5.0 N K) CHLORIDE (test code = 100 mEq/L 100-108 N CL) CARBON DIOXIDE (test 33 mEq/l 21-33 N code = CO2) ANION GAP (test code = 13 0-20 N GAP) GLUCOSE (test code = 105 mg/dL 70-110 GLU) BLOOD UREA NITROGEN 27 mg/dL 7-18 H (test code = BUN) GLOMERULAR FILTRATION 42.7 70-80 L Units of measure = RATE (test code = GFR) ml/mi n/1.73 m2 CREATININE (test code = 1.6 mg/dL 0.6-1.3 H CREAT) CALCIUM (test code = 9.3 mg/dL 8.0-10.5 N CA) [id number] 07:16:00 Test Item Value Reference Range Interpretation Comments MAGNESIUM (test code = MAG) 1.97 mg/dL 1.80-2.40 N GLUCOSE [id number] 21:31:00 Test Item Value Reference Range Interpretation Comments GLUCOSE BEDSIDE (test 83 MG/DL 70-110 N Perfor med by certified code = GLUBED) 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 [facility] GLUCOSE [id number] 11:59:00 Test Item Value Reference Range Interpretation Comments GLUCOSE BEDSIDE (test 153 MG/DL 70-110 H Perfor med by certified code = GLUBED) 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 [facility] GLUCOSE [id number] 08:27:00 Test Item Value Reference Range Interpretation Comments GLUCOSE BEDSIDE (test 88 MG/DL 70-110 N Perfor med by certified code = GLUBED) 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 [facility] BASIC METABOLIC [id number] 08:04:00 Test Item Value Reference Range Interpretation Comments SODIUM (test code = NA) 143 mEq/L 134-147 N POTASSIUM (test code = 3.6 mEq/L 3.4-5.0 N K) CHLORIDE (test code = 96 mEq/L 100-108 L CL) CARBON DIOXIDE (test 38 mEq/l 21-33 H code = CO2) ANION GAP (test code = 12 0-20 N GAP) GLUCOSE (test code = 64 mg/dL 70-110 L GLU) BLOOD UREA NITROGEN 33 mg/dL 7-18 H (test code = BUN) GLOMERULAR FILTRATION 46.0 70-80 L Units of measure = RATE (test code = GFR) ml/mi n/1.73 m2 CREATININE (test code = 1.5 mg/dL 0.6-1.3 H CREAT) CALCIUM (test code = 9.6 mg/dL 8.0-10.5 N CA) [id number] 08:04:00 Test Item Value Reference Range Interpretation Comments MAGNESIUM (test code = MAG) 1.80 mg/dL 1.80-2.40 N CBC W/AUTO [id number] 07:11:00 Test Item Value Reference Range Interpretation Comments WHITE BLOOD CELL (test code = 9.0 x10 3/uL 4.5-11.0 N WBC) RED BLOOD CELL (test code = 3.32 x10 6/uL 4.00-5.60 L RBC) HEMOGLOBIN (test code = HGB) 8.4 g/dL 12.5-16.9 L HEMATOCRIT (test code = HCT) 28.1 % 37.5-50.7 L MEAN CELL VOLUME (test code = 84.6 fL 81.0-99.0 N MCV) MEAN CELL HGB (test code = MCH) 25.3 pg 27.0-33.0 L MEAN CELL HGB CONCETRATION 29.9 g/dL 33.0-37.0 L (test code = MCHC) RED CELL DISTRIBUTION WIDTH CV 17.2 % 11.5-14.5 H (test code = RDW) RED CELL DISTRIBUTION WIDTH SD 53.5 fL 37.0-54.0 N (test code = RDW-SD) PLATELET COUNT (test code = 258 x10 3/uL 150-400 N PLT) MEAN PLATELET VOLUME (test code 10.8 fL 7.0-9.0 H = MPV) NEUTROPHIL % (test code = NT%) 61.5 % 56.0-77.0 N IMMATURE GRANULOCYTE % (test 0.4 % 0.0-2.0 N code = IG%) LYMPHOCYTE % (test code = LY%) 22.8 % 14.0-32.0 N MONOCYTE % (test code = MO%) 10.6 % 4.8-9.0 H EOSINOPHIL % (test code = EO%) 3.7 % 0.3-3.7 N BASOPHIL % (test code = BA%) 1.0 % 0.0-2.0 N NUCLEATED RBC % (test code = 0.0 % 0-0 N NRBC%) NEUTROPHIL # (test code = NT#) 5.53 x10 3/uL 2.0-7.6 N IMMATURE GRANULOCYTE # (test 0.04 x10 3/uL 0.00-0.03 H code = IG#) LYMPHOCYTE # (test code = LY#) 2.05 x10 3/uL 1.0-3.8 N MONOCYTE # (test code = MO#) 0.95 x10 3/uL 0.1-0.8 H EOSINOPHIL # (test code = EO#) 0.33 x10 3/uL 0.0-0.2 H BASOPHIL # (test code = BA#) 0.09 x10 3/uL 0.0-0.2 N NUCLEATED RBC # (test code = 0.00 x10 3/uL 0.0-0.1 N NRBC#) MANUAL DIFF REQUIRED (test code NO = MDIFF) GLUCOSE [id number] 20:29:00 Test Item Value Reference Range Interpretation Comments GLUCOSE BEDSIDE (test 121 MG/DL 70-110 H Perfor med by certified code = GLUBED) 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 [facility] GLUCOSE [id number] 18:02:00 Test Item Value Reference Range Interpretation Comments GLUCOSE BEDSIDE (test 104 MG/DL 70-110 N Perfor med by certified code = GLUBED) 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 [facility] GLUCOSE [id number] 18:02:00 Test Item Value Reference Range Interpretation Comments GLUCOSE BEDSIDE (test 78 MG/DL 70-110 N Perfor med by certified code = GLUBED) 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 [facility] GLUCOSE [id number] 16:50:00 Test Item Value Reference Range Interpretation Comments GLUCOSE BEDSIDE (test 69 MG/DL 70-110 L Perfor med by certified code = GLUBED) 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 [facility] GLUCOSE [id number] 12:12:00 Test Item Value Reference Range Interpretation Comments GLUCOSE BEDSIDE (test 96 MG/DL 70-110 N Perfor med by certified code = GLUBED) 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 [facility] GLUCOSE [id number] 09:05:00 Test Item Value Reference Range Interpretation Comments GLUCOSE BEDSIDE (test 113 MG/DL 70-110 H Perfor med by certified code = GLUBED) 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 [facility] GLUCOSE [id number] 07:01:00 Test Item Value Reference Range Interpretation Comments GLUCOSE BEDSIDE (test 96 MG/DL 70-110 N Perfor med by certified code = GLUBED) 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 [facility] GLUCOSE [id number] 05:22:00 Test Item Value Reference Range Interpretation Comments GLUCOSE BEDSIDE (test 67 MG/DL 70-110 L Perfor med by certified code = GLUBED) 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 [facility] GLUCOSE [id number] 22:12:00 Test Item Value Reference Range Interpretation Comments GLUCOSE BEDSIDE (test 74 MG/DL 70-110 N Perfor med by certified code = GLUBED) 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 [facility] GLUCOSE [id number] 18:27:00 Test Item Value Reference Range Interpretation Comments GLUCOSE BEDSIDE (test 83 MG/DL 70-110 N Perfor med by certified code = GLUBED) 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 [facility] FLUID [id number] 15:22:00 Test Item Value Reference Range Interpretation Comments FLUID CO2 (test code = CO2BF) 33 21-33 FLUID [id number] 15:21:00 Test Item Value Reference Range Interpretation Comments FLUID CO2 (test code = CO2BF) 33 21-33 N GLUCOSE [id number] 13:20:00 Test Item Value Reference Range Interpretation Comments GLUCOSE BEDSIDE (test 89 MG/DL 70-110 N Perfor med by certified code = GLUBED) 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 [facility] BASIC METABOLIC [id number] 12:58:00 Test Item Value Reference Range Interpretation Comments SODIUM (test code = NA) 145 mEq/L 134-147 N POTASSIUM (test code = 3.7 mEq/L 3.4-5.0 N K) CHLORIDE (test code = 99 mEq/L 100-108 L CL) CARBON DIOXIDE (test > 40 mEq/l 21-33 H code = CO2) ANION GAP (test code = 10 0-20 N GAP) GLUCOSE (test code = 77 mg/dL 70-110 GLU) BLOOD UREA NITROGEN 24 mg/dL 7-18 H (test code = BUN) GLOMERULAR FILTRATION 65.8 70-80 L Units of measure = RATE (test code = GFR) ml/mi n/1.73 m2 CREATININE (test code = 1.1 mg/dL 0.6-1.3 N CREAT) CALCIUM (test code = 9.7 mg/dL 8.0-10.5 N CA) [id number] 12:58:00 Test Item Value Reference Range Interpretation Comments MAGNESIUM (test code = MAG) 1.90 mg/dL 1.80-2.40 N CBC W/AUTO [id number] 12:43:00 Test Item Value Reference Range Interpretation Comments WHITE BLOOD CELL (test code = 8.2 x10 3/uL 4.5-11.0 N WBC) RED BLOOD CELL (test code = 3.56 x10 6/uL 4.00-5.60 L RBC) HEMOGLOBIN (test code = HGB) 8.7 g/dL 12.5-16.9 L HEMATOCRIT (test code = HCT) 30.1 % 37.5-50.7 L MEAN CELL VOLUME (test code = 84.6 fL 81.0-99.0 N MCV) MEAN CELL HGB (test code = MCH) 24.4 pg 27.0-33.0 L MEAN CELL HGB CONCETRATION 28.9 g/dL 33.0-37.0 L (test code = MCHC) RED CELL DISTRIBUTION WIDTH CV 17.0 % 11.5-14.5 H (test code = RDW) RED CELL DISTRIBUTION WIDTH SD 53.0 fL 37.0-54.0 N (test code = RDW-SD) PLATELET COUNT (test code = 298 x10 3/uL 150-400 N PLT) MEAN PLATELET VOLUME (test code 9.9 fL 7.0-9.0 H = MPV) NEUTROPHIL % (test code = NT%) 63.8 % 56.0-77.0 N IMMATURE GRANULOCYTE % (test 0.4 % 0.0-2.0 N code = IG%) LYMPHOCYTE % (test code = LY%) 21.3 % 14.0-32.0 N MONOCYTE % (test code = MO%) 11.2 % 4.8-9.0 H EOSINOPHIL % (test code = EO%) 2.0 % 0.3-3.7 N BASOPHIL % (test code = BA%) 1.3 % 0.0-2.0 N NUCLEATED RBC % (test code = 0.0 % 0-0 N NRBC%) NEUTROPHIL # (test code = NT#) 5.22 x10 3/uL 2.0-7.6 N IMMATURE GRANULOCYTE # (test 0.03 x10 3/uL 0.00-0.03 N code = IG#) LYMPHOCYTE # (test code = LY#) 1.74 x10 3/uL 1.0-3.8 N MONOCYTE # (test code = MO#) 0.92 x10 3/uL 0.1-0.8 H EOSINOPHIL # (test code = EO#) 0.16 x10 3/uL 0.0-0.2 N BASOPHIL # (test code = BA#) 0.11 x10 3/uL 0.0-0.2 N NUCLEATED RBC # (test code = 0.00 x10 3/uL 0.0-0.1 N NRBC#) MANUAL DIFF REQUIRED (test code NO = MDIFF) GLUCOSE [id number] 09:10:00 Test Item Value Reference Range Interpretation Comments GLUCOSE BEDSIDE (test 109 MG/DL 70-110 N Perfor med by certified code = GLUBED) 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 [facility] - XR CHEST 1 [id number] 00:00:00 [facility] : 1950 Sex: M FAX: Vinny Chou MD [phone] [place]: St: ADM FAX: Benedicto Howell MD [phone] Name: OLIVIA MONROY [facility] : 1950 Age/S: 70/M [address] [place] [address] Blvd Unit #: [id number] Loc: [address] [place] [address] [id number] Phys: Vinny Chou MD Acct: [id number] Dis Date: Status: ADM IN PHONE #: [phone] Exam Date: 08/26/20211126 FAX #: [phone] Reason: SOB ON OXYGEN, HEART FAILURE EXAMS: CPT CODE: [id number] XR CHEST 1 V [id number] PROCEDURE INFORMATION: Exam: XR Chest Exam date and time: 08/26/2021 11:25 AM Age: 70 years old Clinical indication: Condition or disease; Other: SOB on oxygen, heart failure TECHNIQUE: Imaging protocol: XR of the chest. Views: 1 view. COMPARISON: CR XR CHEST 1V 08/22/2021 6:04AM FINDINGS: Tubes, catheters and devices: None. Lungs: Iwfy-cs-vdqvhidg bilateral perihilar and basilar interstitial lung opacities, suggesting pulmonary edema versus infiltrates. The peripheral lungsare otherwise clear. The pulmonary opacities are most prominent within the lower left lung. Improvement of lung opacities is demonstrated. Pleural spaces: Unremarkable. No pleural effusion. No pneumothorax. Heart/Mediastinum: Cardiac silhouette appears mildly enlarged. Vasculature: Mild atherosclerotic calcification demonstrated within the aorta. Bones/joints: Sternotomy wires, hardware is demonstrated. Diffusely decreased bone density. Generalized bony degenerative changes. Soft tissues: This studyis limited by patient's body habitus. IMPRESSION: 1. Yphq-cg-ionwcdiw pulmonary edema versus infiltrates. Improvement. 2. Mild enlarged cardiac silhouette. 3. Degenerative and postsurgical changes are demonstrated, as described above. at 1850 Reported and signed by: Morteza Bowles M.D. 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 [facility] GLUCOSE [id number] 17:35:00 Test Item Value Reference Range Interpretation Comments GLUCOSE BEDSIDE (test 82 MG/DL 70-110 N Perfor med by certified code = GLUBED) 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 [facility] GLUCOSE [id number] 12:09:00 Test Item Value Reference Range Interpretation Comments GLUCOSE BEDSIDE (test 117 MG/DL 70-110 H Perfor med by certified code = GLUBED) 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 [facility] GLUCOSE [id number] 08:52:00 Test Item Value Reference Range Interpretation Comments GLUCOSE BEDSIDE (test 126 MG/DL 70-110 H Perfor med by certified code = GLUBED) 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 [facility] BASIC METABOLIC [id number] 05:23:00 Test Item Value Reference Range Interpretation Comments SODIUM (test code = NA) 143 mEq/L 134-147 N POTASSIUM (test code = 3.4 mEq/L 3.4-5.0 N K) CHLORIDE (test code = 100 mEq/L 100-108 N CL) CARBON DIOXIDE (test 38 mEq/l 21-33 H code = CO2) ANION GAP (test code = 8 0-20 N GAP) GLUCOSE (test code = 117 mg/dL 70-110 H GLU) BLOOD UREA NITROGEN 16 mg/dL 7-18 N (test code = BUN) GLOMERULAR FILTRATION 73.5 70-80 N Units of measure = RATE (test code = GFR) ml/mi n/1.73 m2 CREATININE (test code = 1.0 mg/dL 0.6-1.3 N CREAT) CALCIUM (test code = 9.4 mg/dL 8.0-10.5 N CA) [id number] 05:23:00 Test Item Value Reference Range Interpretation Comments MAGNESIUM (test code = MAG) 2.02 mg/dL 1.80-2.40 FLUID [id number] 03:06:00 Test Item Value Reference Range Interpretation Comments FLUID CO2 (test code = CO2BF) 32 21-33 N FLUID [id number] 03:06:00 Test Item Value Reference Range Interpretation Comments FLUID CO2 (test code = CO2BF) 32 21-33 GLUCOSE [id number] 21:36:00 Test Item Value Reference Range Interpretation Comments GLUCOSE BEDSIDE (test 116 MG/DL 70-110 H Perfor med by certified code = GLUBED) 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 [facility] GLUCOSE [id number] 16:18:00 Test Item Value Reference Range Interpretation Comments GLUCOSE BEDSIDE (test 99 MG/DL 70-110 N Perfor med by certified code = GLUBED) 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 [facility] GLUCOSE [id number] 12:06:00 Test Item Value Reference Range Interpretation Comments GLUCOSE BEDSIDE (test 128 MG/DL 70-110 H Perfor med by certified code = GLUBED) 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 [facility] [id number] 12:00:00 Test Item Value Reference Range Interpretation Comments MAGNESIUM (test code = MAG) 1.67 mg/dL 1.80-2.40 L BASIC METABOLIC [id number] 11:54:00 Test Item Value Reference Range Interpretation Comments SODIUM (test code = NA) 144 mEq/L 134-147 N POTASSIUM (test code = 3.2 mEq/L 3.4-5.0 L K) CHLORIDE (test code = 99 mEq/L 100-108 L CL) CARBON DIOXIDE (test > 40 mEq/l -33 H code = CO2) ANION GAP (test code = 8 0-20 N GAP) GLUCOSE (test code = 130 mg/dL 70-110 H GLU) BLOOD UREA NITROGEN 19 mg/dL 7-18 H (test code = BUN) GLOMERULAR FILTRATION 73.5 70-80 N Units of measure = RATE (test code = GFR) ml/mi n/1.73 m2 CREATININE (test code = 1.0 mg/dL 0.6-1.3 N CREAT) CALCIUM (test code = 9.9 mg/dL 8.0-10.5 N CA) CBC W/AUTO [id number] 11:49:00 Test Item Value Reference Range Interpretation Comments WHITE BLOOD CELL (test code = 7.6 x10 3/uL 4.5-11.0 N WBC) RED BLOOD CELL (test code = 3.27 x10 6/uL 4.00-5.60 L RBC) HEMOGLOBIN (test code = HGB) 8.0 g/dL 12.5-16.9 L HEMATOCRIT (test code = HCT) 27.5 % 37.5-50.7 L MEAN CELL VOLUME (test code = 84.1 fL 81.0-99.0 MCV) MEAN CELL HGB (test code = MCH) 24.5 pg 27.0-33.0 L MEAN CELL HGB CONCETRATION 29.1 g/dL 33.0-37.0 L (test code = MCHC) RED CELL DISTRIBUTION WIDTH CV 16.4 % 11.5-14.5 H (test code = RDW) RED CELL DISTRIBUTION WIDTH SD 50.6 fL 37.0-54.0 N (test code = RDW-SD) PLATELET COUNT (test code = 285 x10 3/uL 150-400 N PLT) MEAN PLATELET VOLUME (test code 9.7 fL 7.0-9.0 H = MPV) NEUTROPHIL % (test code = NT%) 72.9 % 56.0-77.0 N IMMATURE GRANULOCYTE % (test 0.4 % 0.0-2.0 N code = IG%) LYMPHOCYTE % (test code = LY%) 13.9 % 14.0-32.0 L MONOCYTE % (test code = MO%) 9.0 % 4.8-9.0 N EOSINOPHIL % (test code = EO%) 2.6 % 0.3-3.7 N BASOPHIL % (test code = BA%) 1.2 % 0.0-2.0 N NUCLEATED RBC % (test code = 0.0 % 0-0 N NRBC%) NEUTROPHIL # (test code = NT#) 5.57 x10 3/uL 2.0-7.6 N IMMATURE GRANULOCYTE # (test 0.03 x10 3/uL 0.00-0.03 N code = IG#) LYMPHOCYTE # (test code = LY#) 1.06 x10 3/uL 1.0-3.8 N MONOCYTE # (test code = MO#) 0.69 x10 3/uL 0.1-0.8 N EOSINOPHIL # (test code = EO#) 0.20 x10 3/uL 0.0-0.2 N BASOPHIL # (test code = BA#) 0.09 x10 3/uL 0.0-0.2 N NUCLEATED RBC # (test code = 0.00 x10 3/uL 0.0-0.1 N NRBC#) MANUAL DIFF REQUIRED (test code NO = MDIFF) ARTERIAL BLOOD [id number] 10:44:00 Test Item Value Reference Range Interpretation Comments ARTERIAL BLOOD GAS PH TEST NOT PERFORMED 7.35-7.45 (test code = PHA) ARTERIAL BLOOD GAS PCO2 TEST NOT PERFORMED 35-45 (test code = PCO2A) mmHg ARTERIAL BLOOD GAS PO2 TEST NOT PERFORMED 80-100 (test code = PO2A) mmHg BICARBONATE TOTAL HCO3 TEST NOT PERFORMED 22.0-26.0 (test code = HCO3) mmol/L GLUCOSE [id number] 08:06:00 Test Item Value Reference Range Interpretation Comments GLUCOSE BEDSIDE (test 113 MG/DL 70-110 H Perfor med by certified code = GLUBED) 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 [facility] GLUCOSE [id number] 20:33:00 Test Item Value Reference Range Interpretation Comments GLUCOSE BEDSIDE (test 64 MG/DL 70-110 L Perfor med by certified code = GLUBED) 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 [facility] GLUCOSE [id number] 18:30:00 Test Item Value Reference Range Interpretation Comments GLUCOSE BEDSIDE (test 62 MG/DL 70-110 L Perfor med by certified code = GLUBED) 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 [facility] ARTERIAL BLOOD [id number] 16:48:00 Test Item Value Reference Range Interpretation Comments ARTERIAL BLOOD GAS PH TEST NOT PERFORMED 7.35-7.45 (test code = PHA) ARTERIAL BLOOD GAS PCO2 TEST NOT PERFORMED 35-45 (test code = PCO2A) mmHg ARTERIAL BLOOD GAS PO2 TEST NOT PERFORMED 80-100 (test code = PO2A) mmHg BICARBONATE TOTAL HCO3 TEST NOT PERFORMED 22.0-26.0 (test code = HCO3) mmol/L GLUCOSE [id number] 13:16:00 Test Item Value Reference Range Interpretation Comments GLUCOSE BEDSIDE (test 93 MG/DL 70-110 N Perfor med by certified code = GLUBED) 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 [facility] POC ARTERIAL BLOOD [id number] 09:14:00 Test Item Value Reference Range Interpretation Comments POC ARTERIAL BLOOD GAS PH (test 7.373 7.35-7.45 N code = POCPHA) POC ARTERIAL BLOOD GAS PCO2 (test 68.8 mmHg 35.0-45 HH code = KHUSQB2Z) POC TCO2 ARTERIAL (test code = 42.2 POCTCO2) POC ARTERIAL BLOOD GAS PO2 (test 77.4 mmHg 80-100.0 L code = WLADY8P) POC HCO3 ARTERIAL (test code = 40.1 MMOL/L 22.0-26.0 HH FOXVHG3L) POC BASE EXCESS (test code = 14.9 MMOL/L -4.0-4.0 H POCBEA) POC O2 SATURATION (test code = 94.2 % 90-100 N POCO2S) ABG SITE (test code = SITEA) R Radial RAUL'S TEST (test code = ALLENS) Positive GLUCOSE [id number] 08:48:00 Test Item Value Reference Range Interpretation Comments GLUCOSE BEDSIDE (test 87 MG/DL 70-110 N Perfor med by certified code = GLUBED) 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 [facility] BASIC METABOLIC [id number] 07:33:00 Test Item Value Reference Range Interpretation Comments SODIUM (test code = NA) 144 mEq/L 134-147 N POTASSIUM (test code = 3.7 mEq/L 3.4-5.0 N K) CHLORIDE (test code = 105 mEq/L 100-108 N CL) CARBON DIOXIDE (test 34 mEq/l 21-33 H code = CO2) ANION GAP (test code = 9 0-20 N GAP) GLUCOSE (test code = 78 mg/dL 70-110 GLU) BLOOD UREA NITROGEN 12 mg/dL 7-18 (test code = BUN) GLOMERULAR FILTRATION 95.0 70-80 H Units of measure = RATE (test code = GFR) ml/mi n/1.73 m2 CREATININE (test code = 0.8 mg/dL 0.6-1.3 CREAT) CALCIUM (test code = 9.6 mg/dL 8.0-10.5 N CA) GLUCOSE [id number] 20:28:00 Test Item Value Reference Range Interpretation Comments GLUCOSE BEDSIDE (test 141 MG/DL 70-110 H Perfor med by certified code = GLUBED) 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 [facility] GLUCOSE [id number] 16:59:00 Test Item Value Reference Range Interpretation Comments GLUCOSE BEDSIDE (test 111 MG/DL 70-110 H Perfor med by certified code = GLUBED) 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 [facility] [id number] 16:06:00 Test Item Value Reference Range Interpretation Comments MAGNESIUM (test code = MAG) 1.92 mg/dL 1.80-2.40 N GLUCOSE [id number] 14:17:00 Test Item Value Reference Range Interpretation Comments GLUCOSE BEDSIDE (test 84 MG/DL 70-110 N Perfor med by certified code = GLUBED) 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 HDL CHOLESTEROL 26.4 mg/dL 32-72 L (test code = HDL) LIPOPROTEIN LDL 51.9 mg/dL 0-100 N <100 OPTIMAL 100-129 (test code = LDL) NEAR OPTIM AL/ABOVE [id number] 89 HIGH>WI=897 GINGER Y HIGH*Guidelines provided by the National Choles terol EducationProgra m Adult Treatment Panel III TSH REFLEX TO [id number] 10:31:00 Test Item Value Reference Range Interpretation Comments TSH REFLEX TO FT4 (test code = 1.03 IU/mL 0.42-5.47 N TSHREFLEX) TROP-I HIGH [id number] 10:29:00 Test Item Value Reference Range Interpretation Comments TROP-I HIGH 21 ng/L 0-54 N CAUTION: Units of the SENSITIVITY (test current te st methodology code = TROPIHS) (ng/L) diffe rfrom the prior test methodolog y (ng/mL) by a factor of 1000. 99th Percentile Upper Reference Limit (URL): Females: 34 ng/LMales: 54 n g/L In order to distinguish acute elevations of h igh sensitivitytrop onin from other clinical conditions, the FourthUnive rsal Definition of M yocardial Infarction stre ssesclinical assessment and the demonstration o f a rise and/orfall in s erial troponin result s above the URL. These resu lts were obtained using Siemens AtellActionRun IM TnI Hreagent. Results from di fferent methodologies s hould not becompared to o ne another as quantitative results and URLs mayvary by method. HGBA1C%2021-08-22 10:28:00 Test Item Value Reference Range Interpretation Comments HGBA1C% (test code = HGBA1C%) 5.5 %A1C 4.8-6.0 N B-TYPE NATRIURETIC [id number] 07:01:00 Test Item Value Reference Range Interpretation Comments B-TYPE NATRIURETIC PEPTIDE (test 346.0 PG/ML 0-100 H code = BNP) BASIC METABOLIC [id number] 06:46:00 Test Item Value Reference Range Interpretation Comments SODIUM (test code = NA) 144 mEq/L 134-147 N POTASSIUM (test code = 4.4 mEq/L 3.4-5.0 N K) CHLORIDE (test code = 108 mEq/L 100-108 N CL) CARBON DIOXIDE (test 29 mEq/l 21-33 N code = CO2) ANION GAP (test code = 11 0-20 N GAP) GLUCOSE (test code = 108 mg/dL 70-110 N GLU) BLOOD UREA NITROGEN 17 mg/dL 7-18 N (test code = BUN) GLOMERULAR FILTRATION 65.8 70-80 L Units of measure = RATE (test code = GFR) ml/mi n/1.73 m2 CREATININE (test code = 1.1 mg/dL 0.6-1.3 N CREAT) CALCIUM (test code = 9.4 mg/dL 8.0-10.5 N CA) TROP-I HIGH [id number] 06:46:00 Test Item Value Reference Range Interpretation Comments TROP-I HIGH 20 ng/L 0-54 N CAUTION: Units of the SENSITIVITY (test current te st methodology code = TROPIHS) (ng/L) diffe rfrom the prior test methodolog y (ng/mL) by a factor of 1000. 99th Percentile Upper Reference Limit (URL): Females: 34 ng/LMales: 54 n g/L In order to distinguish acute elevations of h igh sensitivitytrop onin from other clinical conditions, the FourthUnive rsal Definition of M yocardial Infarction stre ssesclinical assessment and the demonstration o f a rise and/orfall in s erial troponin result s above the URL. These resu lts were obtained using Siemens AtellActionRun IM TnI Hreagent. Results from di fferent methodologies s hould not becompared to o ne another as quantitative results and URLs mayvary by method. CBC W/AUTO [id number] 06:21:00 Test Item Value Reference Range Interpretation Comments WHITE BLOOD CELL (test code = 9.2 x10 3/uL 4.5-11.0 N WBC) RED BLOOD CELL (test code = 3.42 x10 6/uL 4.00-5.60 L RBC) HEMOGLOBIN (test code = HGB) 8.3 g/dL 12.5-16.9 L HEMATOCRIT (test code = HCT) 31.2 % 37.5-50.7 L MEAN CELL VOLUME (test code = 91.2 fL 81.0-99.0 N MCV) MEAN CELL HGB (test code = MCH) 24.3 pg 27.0-33.0 L MEAN CELL HGB CONCETRATION 26.6 g/dL 33.0-37.0 L (test code = MCHC) RED CELL DISTRIBUTION WIDTH CV 17.0 % 11.5-14.5 H (test code = RDW) RED CELL DISTRIBUTION WIDTH SD 57.5 fL 37.0-54.0 H (test code = RDW-SD) PLATELET COUNT (test code = 270 x10 3/uL 150-400 N PLT) MEAN PLATELET VOLUME (test code 10.2 fL 7.0-9.0 H = MPV) NEUTROPHIL % (test code = NT%) 71.4 % 56.0-77.0 N IMMATURE GRANULOCYTE % (test 0.4 % 0.0-2.0 N code = IG%) LYMPHOCYTE % (test code = LY%) 13.6 % 14.0-32.0 L MONOCYTE % (test code = MO%) 10.9 % 4.8-9.0 H EOSINOPHIL % (test code = EO%) 2.9 % 0.3-3.7 N BASOPHIL % (test code = BA%) 0.8 % 0.0-2.0 N NUCLEATED RBC % (test code = 0.0 % 0-0 N NRBC%) NEUTROPHIL # (test code = NT#) 6.53 x10 3/uL 2.0-7.6 N IMMATURE GRANULOCYTE # (test 0.04 x10 3/uL 0.00-0.03 H code = IG#) LYMPHOCYTE # (test code = LY#) 1.25 x10 3/uL 1.0-3.8 N MONOCYTE # (test code = MO#) 1.00 x10 3/uL 0.1-0.8 H EOSINOPHIL # (test code = EO#) 0.27 x10 3/uL 0.0-0.2 H BASOPHIL # (test code = BA#) 0.07 x10 3/uL 0.0-0.2 N NUCLEATED RBC # (test code = 0.00 x10 3/uL 0.0-0.1 N NRBC#) MANUAL DIFF REQUIRED (test code NO = MDIFF) - XR CHEST 1 [id number] 00:00:00 [facility] : 1950 Sex: M FAX: Jj Theodore DO [phone] [place]: St: REG Name: OLIVIA MONROY [facility] : 1950 Age/S: 70/M [address] [place] [address] Blvd Unit #: [id number] Loc: [place] [address] Phys: Jj Dyson Acct: [id number] Dis Date: Status: REG ER PHONE #: [phone] Exam Date: 08/22/2021620 FAX #: [phone] Reason: Chest Pain EXAMS: CPT CODE: [id number] XR CHEST 1 V 92144 PROCEDURE INFORMATION: Exam: XR Chest Exam date and time: 08/22/2021 6:04 AM Age: 70 years old Clinical indication: Other: Chest pain TECHNIQUE: Imaging protocol: XR of the chest. Views: 1 view. COMPARISON: No relevant prior studies available. FINDINGS: Lungs: Patchy bilateral airspace opacities predominate lung bases. Pleural spaces: S mall bilateral pleural effusions are suspected. Heart/Mediastinum: Heart is enlarged. Mediastinum isnormal. Pulmonary vessels are engorged. Bones/joints: No acute osseous findings. IMPRESSION: Constellation of findings most likely represent pulmonary edema and heart failure in the absence of fever or cough. Pneumonia can however have a similar imaging appearance. at 0629 Reported and signed by: Zion Álvarez M.D. CC: Jj Dyson DO Technologist: RT Luis(R) Trnscrd Date/Time/By: 08/22/2021 (628) : By: [email or web address] Orig Print D/T: S: 08/22/2021 (628) PAGE 1 Signed ReportPOCT-GLUCOSE [id number] 19:06:33 Test Item Value Reference Range Interpretation Comments POC-GLUCOSE METER 109 mg/dL 70-110 : [facility] (test code = BREEZY [facility], 1538) [address]: Sustainability Specialist/Techni salma ID = [id number] for Ng Brenda sampson, CHEST, 1 VIEW, NON [id number] 13:58:00Reason for exam:- >intubatedShould this be performed at the bedside?->Yes [facility] 1950 Sex: MFINAL REPORT Chest, 1 view, 07/18/2021 2:50 AM. History: Respiratory failure. Comparison: 07/17/2021. Discussion: The cardiac silhouette is stable. Bilateral interstitial and patchy airspace opacities are unchanged. There is no pneumothorax or pleural effusion. Feeding tube is no longer seen. Median sternotomy wires and CABG clips are unchanged in appearance. The soft tissues and osseous structures are intact. IMPRESSION: Bilateral pulmonary opacities without significant change. Removal of feeding tube. Signed: Olivia Hunt MDReport Verified Date/Time: 07/18/2021 13:58:19 ReadingLocation: [facility] POCT- GLUCOSE [id number] 12:01:38 Test Item Value Reference Range Interpretation Comments POC-GLUCOSE METER 155 mg/dL 70-110 H : TESTED A T [facility] 6720 (GALE) (test code = [place], 1538) [address]: Sustainability Specialist/Techni salma ID = [id number] for MILE MONTEMAYOR POCT-GLUCOSE [id number] 06:05:22 Test Item Value Reference Range Interpretation Comments POC-GLUCOSE METER 71 mg/dL 70-110 : TESTED A T [facility] 6720 (BEAKER) (test code = [facility]REE[facility]Y [facility], 1538) [address]: Sustainability Specialist/Techni salma ID = [id number] for MSIB I, MNCEDISI [id number] 05:07:35 Test Item Value Reference Range Interpretation Comments MAGNESIUM (BEAKER) (test code = 1.9 mg/dL 1.6-2.6 627) Sustainability Specialist ID - DBHEPATIC FUNCTION [id number] 05:07:35 Test Item Value Reference Range Interpretation Comments TOTAL PROTEIN (BEAKER) (test code = 6.3 gm/dL 6.0-8.3 770) ALBUMIN (BEAKER) (test code = 1145) 2.9 g/dL 3.5-5.0 L BILIRUBIN TOTAL (BEAKER) (test code 0.4 mg/dL 0.2-1.2 = 377) BILIRUBIN DIRECT (BEAKER) (test 0.2 mg/dL 0.1-0.5 code = 706) ALKALINE PHOSPHATASE (BEAKER) (test 89 U/L 40-150 code = 346) AST (SGOT) (BEAKER) (test code = 21 U/L 5-34 353) ALT (SGPT) (BEAKER) (test code = 24 U/L 6-55 347) Sustainability Specialist ID - DBBASIC METABOLIC [id number] 05:07:34 Test Item Value Reference Range Interpretation Comments SODIUM (BEAKER) 138 meq/L 136-145 (test code = 381) POTASSIUM (BEAKER) 4.1 meq/L 3.5-5.1 (test code = 379) CHLORIDE (BEAKER) 101 meq/L 98-107 (test code = 382) CO2 (BEAKER) (test 28 meq/L 22-29 code = 355) BLOOD UREA NITROGEN 24 mg/dL 7-21 H (BEAKER) (test code = 354) CREATININE (BEAKER) 0.80 mg/dL 0.57-1.25 (test code = 358) GLUCOSE RANDOM 81 mg/dL 70-105 (BEAKER) (test code = 652) CALCIUM (BEAKER) 9.9 mg/dL 8.4-10.2 (test code = 697) EGFR (BEAKER) (test 95 mL/min/1.73 ESTIMA OZIEL GFR IS code = 1092) sq m NOT ACCURATE CREATININE CLEARANCE IN PREDICTING GLOMERULAR FILTRATION RATE . ESTIMATED GFR I S NOT APPLICABLE FOR DIALYSIS PATIEN TS. Sustainability Specialist ID - DBBlood gas, [id number] 04:57:21 Test Item Value Reference Range Interpretation Comments pH, Rupert (test code = 7.43 7.32-7.42 H 2746-6) pCO2, Rupert (test code = 48 See_Comment [Aut omated message] 755) The system Mobi generated this result transmit oziel reference range : 41 - 51 mm Hg. The reference range was not used to interpret this result as normal/abnormal . pO2, Rupert (test code = 51 See_Comment H [Auto mated message] 2705-2) The system Mobi generated this result transmit oziel reference range : 25 - 40 mm Hg. The reference range was not used to interpret this result as normal/abnormal . O2 Sat, Rupert (test code 87.3 % 40.0-70.0 H = 2711-0) HCO3, Rupert (test code = 31 mmol/L 21-29 H 74894-5) Base Excess, Rupert (test 6.2 mmol/L -2.0-3.0 H code = 1927-3) Patient Temperature 36.8 (test code = 8310-5) FIO2 (test code = 1819) 28 Lab Interpretation Abnormal (test code = 80770-1) [facility] [id number] 04:57:21 Test Item Value Reference Range Interpretation Comments pH, Rupert (test code = 7.43 7.32-7.42 H 2746-6) pCO2, Rupert (test code = 48 See_Comment [Aut omated message] 755) The system Mobi generated this result transmit oziel reference range : 41 - 51 mm Hg. The reference range was not used to interpret this result as normal/abnormal . pO2, Rupert (test code = 51 See_Comment H [Auto mated message] 2705-2) The system Mobi generated this result transmit oziel reference range : 25 - 40 mm Hg. The reference range was not used to interpret this result as normal/abnormal . O2 Sat, Rupert (test code 87.3 % 40.0-70.0 H = 2711-0) HCO3, Rupert (test code = 31 mmol/L 21-29 H 30187-9) Base Excess, Rupert (test 6.2 mmol/L -2.0-3.0 H code = 1927-3) Patient Temperature 36.8 (test code = 8310-5) FIO2 (test code = 1819) 28 Lab Interpretation Abnormal (test code = 61570-1) [facility] [id number] 04:57:21 Test Item Value Reference Range Interpretation Comments PH VENOUS (BEAKER) (test code = 7.43 7.32-7.42 H 701) PCO2 VENOUS (BEAKER) (test code = 48 mm Hg 41-51 755) PO2 VENOUS (BEAKER) (test code = 51 mm Hg 25-40 H 702) O2 SATURATION VENOUS (BEAKER) 87.3 % 40.0-70.0 H (test code = 703) HCO3 VENOUS (BEAKER) (test code = 31 mmol/L 21-29 H 705) BASE EXCESS VENOUS (BEAKER) (test 6.2 mmol/L -2.0-3.0 H code = 704) PATIENT TEMPERATURE (BEAKER) (test 36.8 code = 1818) FIO2 (BEAKER) (test code = 1819) 28.0 CBC W/PLT COUNT & AUTO [id number] 04:49:48 Test Item Value Reference Range Interpretation Comments WHITE BLOOD CELL COUNT (BEAKER) 8.7 K/ L 3.5-10.5 (test code = 775) RED BLOOD CELL COUNT (BEAKER) 2.94 M/ L 4.63-6.08 L (test code = 761) HEMOGLOBIN (BEAKER) (test code = 8.0 GM/DL 13.7-17.5 L 410) HEMATOCRIT (BEAKER) (test code = 27.1 % 40.1-51.0 L 411) MEAN CORPUSCULAR VOLUME (BEAKER) 92.2 fL 79.0-92.2 (test code = 753) MEAN CORPUSCULAR HEMOGLOBIN 27.2 pg 25.7-32.2 (BEAKER) (test code = 751) MEAN CORPUSCULAR HEMOGLOBIN CONC 29.5 GM/DL 32.3-36.5 L (BEAKER) (test code = 752) RED CELL DISTRIBUTION WIDTH 17.6 % 11.6-14.4 H (BEAKER) (test code = 412) PLATELET COUNT (BEAKER) (test 425 K/CU MM 150-450 code = 756) MEAN PLATELET VOLUME (BEAKER) 10.4 fL 9.4-12.4 (test code = 754) NUCLEATED RED BLOOD CELLS 0 /100 WBC 0-0 (BEAKER) (test code = 413) NEUTROPHILS RELATIVE PERCENT 63 % (BEAKER) (test code = 429) LYMPHOCYTES RELATIVE PERCENT 22 % (BEAKER) (test code = 430) MONOCYTES RELATIVE PERCENT 13 % (BEAKER) (test code = 431) EOSINOPHILS RELATIVE PERCENT 1 % (BEAKER) (test code = 432) BASOPHILS RELATIVE PERCENT 1 % (BEAKER) (test code = 437) NEUTROPHILS ABSOLUTE COUNT 5.47 K/ L 1.78-5.38 H (BEAKER) (test code = 670) LYMPHOCYTES ABSOLUTE COUNT 1.92 K/ L 1.32-3.57 (BEAKER) (test code = 414) MONOCYTES ABSOLUTE COUNT (BEAKER) 1.09 K/ L 0.30-0.82 H (test code = 415) EOSINOPHILS ABSOLUTE COUNT 0.08 K/ L 0.04-0.54 (BEAKER) (test code = 416) BASOPHILS ABSOLUTE COUNT (BEAKER) 0.07 K/ L 0.01-0.08 (test code = 417) IMMATURE GRANULOCYTES-RELATIVE 1 % 0-1 PERCENT (BEAKER) (test code = 2801) POCT-GLUCOSE [id number] 23:59:06 Test Item Value Reference Range Interpretation Comments POC-GLUCOSE METER 80 mg/dL 70-110 : TESTED A T [facility] 6720 (BEAKER) (test code [facility], = 1538) 7[address]: Sustainability Specialist/Techni salma ID = [id number] for Jeana ashton (contract), [facility] POCT-GLUCOSE [id number] 18:24:51 Test Item Value Reference Range Interpretation Comments POC-GLUCOSE METER 85 mg/dL 70-110 : TESTED A T [facility] 6720 (BEAKER) (test code = [facility]REE[facility]Y [facility], 1538) 55[address]: Sustainability Specialist/Techni salma ID = [id number] for MILE MONTEMAYOR POCT-GLUCOSE [id number] 12:12:22 Test Item Value Reference Range Interpretation Comments POC-GLUCOSE METER 147 mg/dL 70-110 H : TESTED A T [facility] 6720 (GALE) (test code = BREEZY Moss [facility], 1538) 99754: Sustainability Specialist/Techni salma ID = [id number] for MILE MONTEMAYOR RAD, CHEST, 1 VIEW, NON [id number] 10:13:00Reason for exam:- >intubatedShould this be performed at the bedside?->Yes [facility] : 1950 Sex: MFINAL REPORT RAD, CHEST, 1 VIEW, NON DEPT INDICATION: intubated COMPARISON: Priorday's exam TECHNIQUE: Portable frontal view of the chest. FINDINGS: Support Lines and Devices: Stable. Lungs and pleura: Bilateral airspace and interstitial opacities, similar to prior exam, which may represent pneumonia or pulmonary edema. Lucency along the right upper lung appears to represent a skin fold. No pneumothorax identified. Heart and mediastinum: Stable contours. Stable surgical changes..Postoperative changes from coronary artery bypass grafting are present. Additional findings: None. IMPRESSION: Bilateral airspace and interstitial opacities, similar to prior exam, which may represent pneumonia or pulmonary edema. Signed: Marc Joy MDReport Verified Date/Time: 07/17/2021 10:13:41 Reading Location: [facility] Radiology Reading Room BLOOD GAS, [id number] 06:03:50 Test Item Value Reference Range Interpretation Comments PH VENOUS (BEAKER) (test code = 7.42 7.32-7.42 701) PCO2 VENOUS (BEAKER) (test code = 48 mm Hg 41-51 755) PO2 VENOUS (BEAKER) (test code = 48 mm Hg 25-40 H 702) O2 SATURATION VENOUS (BEAKER) 83.7 % 40.0-70.0 H (test code = 703) HCO3 VENOUS (BEAKER) (test code = 31 mmol/L 21-29 H 705) BASE EXCESS VENOUS (BEAKER) (test 5.5 mmol/L -2.0-3.0 H code = 704) PATIENT TEMPERATURE (BEAKER) (test 37.0 code = 1818) BASIC METABOLIC [id number] 06:02:29 Test Item Value Reference Range Interpretation Comments SODIUM (BEAKER) 137 meq/L 136-145 (test code = 381) POTASSIUM (BEAKER) 4.3 meq/L 3.5-5.1 (test code = 379) CHLORIDE (BEAKER) 99 meq/L 98-107 (test code = 382) CO2 (BEAKER) (test 29 meq/L 22-29 code = 355) BLOOD UREA NITROGEN 25 mg/dL 7-21 H (BEAKER) (test code = 354) CREATININE (BEAKER) 0.86 mg/dL 0.57-1.25 (test code = 358) GLUCOSE RANDOM 219 mg/dL 70-105 H (BEAKER) (test code = 652) CALCIUM (BEAKER) 9.9 mg/dL 8.4-10.2 (test code = 697) EGFR (BEAKER) (test 87 mL/min/1.73 ESTIMA OZIEL GFR IS code = 1092) sq m NOT ACCURATE CREATININE CLEARANCE IN PREDICTING GLOMERULAR FILTRATION RATE . ESTIMATED GFR I S NOT APPLICABLE FOR DIALYSIS PATIEN TS. Sustainability Specialist BOOGIE - JULIETTE [id number] 06:02:29 Test Item Value Reference Range Interpretation Comments MAGNESIUM (BEAKER) (test code = 2.0 mg/dL 1.6-2.6 627) Sustainability Specialist BOOGIE - JULIETTE LPOCT-GLUCOSE [id number] 05:29:55 Test Item Value Reference Range Interpretation Comments POC-GLUCOSE METER 211 mg/dL 70-110 H : TESTED Jake T [facility] 6720 (BEAKER) (test code = [place], 1538) [address]: Sustainability Specialist/Techni salma ID = [id number] for TYRA MARK CBC W/PLT COUNT & AUTO [id number] 05:28:26 Test Item Value Reference Range Interpretation Comments WHITE BLOOD CELL COUNT (BEAKER) 9.5 K/ L 3.5-10.5 (test code = 775) RED BLOOD CELL COUNT (BEAKER) 2.90 M/ L 4.63-6.08 L (test code = 761) HEMOGLOBIN (BEAKER) (test code = 7.9 GM/DL 13.7-17.5 L 410) HEMATOCRIT (BEAKER) (test code = 26.9 % 40.1-51.0 L 411) MEAN CORPUSCULAR VOLUME (BEAKER) 92.8 fL 79.0-92.2 H (test code = 753) MEAN CORPUSCULAR HEMOGLOBIN 27.2 pg 25.7-32.2 (BEAKER) (test code = 751) MEAN CORPUSCULAR HEMOGLOBIN CONC 29.4 GM/DL 32.3-36.5 L (BEAKER) (test code = 752) RED CELL DISTRIBUTION WIDTH 17.8 % 11.6-14.4 H (BEAKER) (test code = 412) PLATELET COUNT (BEAKER) (test 404 K/CU MM 150-450 code = 756) MEAN PLATELET VOLUME (BEAKER) 10.6 fL 9.4-12.4 (test code = 754) NUCLEATED RED BLOOD CELLS 0 /100 WBC 0-0 (BEAKER) (test code = 413) NEUTROPHILS RELATIVE PERCENT 70 % (BEAKER) (test code = 429) LYMPHOCYTES RELATIVE PERCENT 15 % (BEAKER) (test code = 430) MONOCYTES RELATIVE PERCENT 13 % (BEAKER) (test code = 431) EOSINOPHILS RELATIVE PERCENT 1 % (BEAKER) (test code = 432) BASOPHILS RELATIVE PERCENT 1 % (BEAKER) (test code = 437) NEUTROPHILS ABSOLUTE COUNT 6.63 K/ L 1.78-5.38 H (BEAKER) (test code = 670) LYMPHOCYTES ABSOLUTE COUNT 1.40 K/ L 1.32-3.57 (BEAKER) (test code = 414) MONOCYTES ABSOLUTE COUNT (BEAKER) 1.19 K/ L 0.30-0.82 H (test code = 415) EOSINOPHILS ABSOLUTE COUNT 0.10 K/ L 0.04-0.54 (BEAKER) (test code = 416) BASOPHILS ABSOLUTE COUNT (BEAKER) 0.05 K/ L 0.01-0.08 (test code = 417) IMMATURE GRANULOCYTES-RELATIVE 1 % 0-1 PERCENT (BEAKER) (test code = 2801) POCT-GLUCOSE [id number] 23:36:18 Test Item Value Reference Range Interpretation Comments POC-GLUCOSE METER 173 mg/dL 70-110 H : TESTED A T [facility] 6720 (BEAKER) (test code = [facility], 1538) 00882: Sustainability Specialist/Techni salma ID = [id number] for TYRA MARK POCT-GLUCOSE [id number] 18:44:10 Test Item Value Reference Range Interpretation Comments POC-GLUCOSE METER 195 mg/dL 70-110 H : TESTED A T [facility] 6720 (BEAKER) (test code [facility], = 1538) 45643: Sustainability Specialist/Techni salma ID = [id number] for TORR ALBA, YULIA POCT-GLUCOSE [id number] 11:41:09 Test Item Value Reference Range Interpretation Comments POC-GLUCOSE METER 148 mg/dL 70-110 H : TESTED A T [facility] 6720 (BEAKER) (test code [facility], = 1538) 64850: Sustainability Specialist/Techni salma ID = [id number] for TORR ALBA, YULIA POCT-GLUCOSE [id number] 07:30:28 Test Item Value Reference Range Interpretation Comments POC-GLUCOSE METER 98 mg/dL 70-110 : TESTED A T [facility] 6720 (BEAKER) (test code = [facility], 1538) 94087: Sustainability Specialist/Techni salma ID = [id number] for Pool e (contract, Cheri lica [id number] 06:20:29 Test Item Value Reference Range Interpretation Comments MAGNESIUM (BEAKER) 2.1 mg/dL 1.6-2.6 Specimen slightly (test code = 627) hemolyzed Sustainability Specialist ID - PIRENÉ LBASIC METABOLIC [id number] 06:20:29 Test Item Value Reference Range Interpretation Comments SODIUM (BEAKER) 139 meq/L 136-145 (test code = 381) POTASSIUM (BEAKER) 4.4 meq/L 3.5-5.1 Specimen slightly (test code = 379) hemolyzed CHLORIDE (BEAKER) 103 meq/L 98-107 (test code = 382) CO2 (BEAKER) (test 28 meq/L 22-29 code = 355) BLOOD UREA NITROGEN 23 mg/dL 7-21 H (BEAKER) (test code = 354) CREATININE (BEAKER) 0.75 mg/dL 0.57-1.25 Specimen slightly (test code = 358) hemolyzed GLUCOSE RANDOM 68 mg/dL 70-105 L (BEAKER) (test code = 652) CALCIUM (BEAKER) 10.2 mg/dL 8.4-10.2 (test code = 697) EGFR (BEAKER) (test 102 mL/min/1.73 ESTIM ATED GFR IS code = 1092) sq m NOT ACCURATE CREATININE CLEARANCE IN PREDICTING GLOMERULAR FILTRATION RATE . ESTIMATED GFR I S NOT APPLICABLE FOR DIALYSIS PATIEN TS. Sustainability Specialist ID - PIAYA LHEPATIC FUNCTION [id number] 06:20:29 Test Item Value Reference Range Interpretation Comments TOTAL PROTEIN (BEAKER) 6.3 gm/dL 6.0-8.3 Speci men slightly (test code = 770) hemolyzed ALBUMIN (BEAKER) (test 2.8 g/dL 3.5-5.0 L Speci men slightly code = 1145) hemolyzed BILIRUBIN TOTAL 0.5 mg/dL 0.2-1.2 Specimen sli ghtly (BEAKER) (test code = hemoly zed 377) BILIRUBIN DIRECT 0.2 mg/dL 0.1-0.5 Specimen sl ightly (BEAKER) (test code = hemoly zed 706) ALKALINE PHOSPHATASE 84 U/L 40-150 (BEAKER) (test code = 346) AST (SGOT) (BEAKER) 40 U/L 5-34 H Specimen slightly (test code = 353) hemolyzed ALT (SGPT) (BEAKER) 31 U/L 6-55 Specimen slightly (test code = 347) hemolyzed Sustainability Specialist ID - JULIETTE LCBC W/PLT COUNT & AUTO [id number] 05:46:14 Test Item Value Reference Range Interpretation Comments WHITE BLOOD CELL COUNT (BEAKER) 7.6 K/ L 3.5-10.5 (test code = 775) RED BLOOD CELL COUNT (BEAKER) 3.14 M/ L 4.63-6.08 L (test code = 761) HEMOGLOBIN (BEAKER) (test code = 8.6 GM/DL 13.7-17.5 L 410) HEMATOCRIT (BEAKER) (test code = 29.9 % 40.1-51.0 L 411) MEAN CORPUSCULAR VOLUME (BEAKER) 95.2 fL 79.0-92.2 H (test code = 753) MEAN CORPUSCULAR HEMOGLOBIN 27.4 pg 25.7-32.2 (BEAKER) (test code = 751) MEAN CORPUSCULAR HEMOGLOBIN CONC 28.8 GM/DL 32.3-36.5 L (BEAKER) (test code = 752) RED CELL DISTRIBUTION WIDTH 18.2 % 11.6-14.4 H (BEAKER) (test code = 412) PLATELET COUNT (BEAKER) (test 369 K/CU MM 150-450 code = 756) MEAN PLATELET VOLUME (BEAKER) 10.6 fL 9.4-12.4 (test code = 754) NUCLEATED RED BLOOD CELLS 0 /100 WBC 0-0 (BEAKER) (test code = 413) NEUTROPHILS RELATIVE PERCENT 69 % (BEAKER) (test code = 429) LYMPHOCYTES RELATIVE PERCENT 17 % (BEAKER) (test code = 430) MONOCYTES RELATIVE PERCENT 11 % (BEAKER) (test code = 431) EOSINOPHILS RELATIVE PERCENT 1 % (BEAKER) (test code = 432) BASOPHILS RELATIVE PERCENT 1 % (BEAKER) (test code = 437) NEUTROPHILS ABSOLUTE COUNT 5.23 K/ L 1.78-5.38 (BEAKER) (test code = 670) LYMPHOCYTES ABSOLUTE COUNT 1.32 K/ L 1.32-3.57 (BEAKER) (test code = 414) MONOCYTES ABSOLUTE COUNT (BEAKER) 0.83 K/ L 0.30-0.82 H (test code = 415) EOSINOPHILS ABSOLUTE COUNT 0.09 K/ L 0.04-0.54 (BEAKER) (test code = 416) BASOPHILS ABSOLUTE COUNT (BEAKER) 0.05 K/ L 0.01-0.08 (test code = 417) IMMATURE GRANULOCYTES-RELATIVE 1 % 0-1 PERCENT (BEAKER) (test code = 2801) BLOOD GAS, [id number] 05:43:55 Test Item Value Reference Range Interpretation Comments PH VENOUS (BEAKER) (test code = 7.43 7.32-7.42 H 701) PCO2 VENOUS (BEAKER) (test code = 46 mm Hg 41-51 755) PO2 VENOUS (BEAKER) (test code = 50 mm Hg 25-40 H 702) O2 SATURATION VENOUS (BEAKER) 85.8 % 40.0-70.0 H (test code = 703) HCO3 VENOUS (BEAKER) (test code = 30 mmol/L 21-29 H 705) BASE EXCESS VENOUS (BEAKER) (test 4.8 mmol/L -2.0-3.0 H code = 704) PATIENT TEMPERATURE (BEAKER) (test 37.0 code = 1818) RAD, CHEST, 1 VIEW, NON [id number] 03:58:00Reason for exam:- >intubatedShould this be performed at the bedside?->Yes [facility] : 1950 Sex: MFINAL REPORT RAD, CHEST, 1 VIEW, NON DEPT INDICATION: intubated COMPARISON: Priorday's exam FINDINGS: Portable frontal view of the chest. IMPRESSION: Support Lines: Stable. Lungs and pleura: Worsening reticular airspace opacities may be in part related to technique versus worsening interstitial pulmonary edema. Unchanged left perihilar discoid atelectasis in right upper lobe patchy nodular airspace opacity. No pneumothorax.Heart and mediastinum: Stable contours. Stable surgical changes.Additional findings: None. Signed: Jacque Mcneal Verified Date/Time: :58:51 -GLUCOSE [id number] 23:53:14 Test Item Value Reference Range Interpretation Comments POC-GLUCOSE METER 77 mg/dL 70-110 : TESTED A T [facility] 6720 (BEAKER) (test code = [facility], 1538) 88601: Sustainability Specialist/Techni salma ID = [id number] for BARRETT TISH HAGAN POCT-GLUCOSE [id number] 23:08:13 Test Item Value Reference Range Interpretation Comments POC-GLUCOSE METER 89 mg/dL 70-110 : TESTED A T [facility] 6720 (BEAKER) (test code = [facility], 1538) 43380: Sustainability Specialist/Techni salma ID = [id number] for Pool e (contract, Cheri lica POCT-GLUCOSE [id number] 17:08:48 Test Item Value Reference Range Interpretation Comments POC-GLUCOSE METER 99 mg/dL 70-110 : TESTED A T [facility] 6720 (BEAKER) (test code = [facility], 1538) 88088: Sustainability Specialist/Techni salma ID = [id number] for Karlie lla, Zennia POCT-GLUCOSE [id number] 10:57:05 Test Item Value Reference Range Interpretation Comments POC-GLUCOSE METER 127 mg/dL 70-110 H : TESTED A T [facility] 6720 (BEAKER) (test code = [facility], 1538) 97632: Sustainability Specialist/Techni salma ID = [id number] for Ca shane, Zennia BASIC METABOLIC [id number] 06:49:02 Test Item Value Reference Range Interpretation Comments SODIUM (BEAKER) 137 meq/L 136-145 (test code = 381) POTASSIUM (BEAKER) 4.9 meq/L 3.5-5.1 (test code = 379) CHLORIDE (BEAKER) 102 meq/L 98-107 (test code = 382) CO2 (BEAKER) (test 28 meq/L 22-29 code = 355) BLOOD UREA NITROGEN 27 mg/dL 7-21 H (BEAKER) (test code = 354) CREATININE (BEAKER) 0.80 mg/dL 0.57-1.25 (test code = 358) GLUCOSE RANDOM 115 mg/dL 70-105 H (BEAKER) (test code = 652) CALCIUM (BEAKER) 10.0 mg/dL 8.4-10.2 (test code = 697) EGFR (BEAKER) (test 95 mL/min/1.73 ESTIMA OZIEL GFR IS code = 1092) sq m NOT ACCURATE CREATININE CLEARANCE IN PREDICTING GLOMERULAR FILTRATION RATE . ESTIMATED GFR I S NOT APPLICABLE FOR DIALYSIS PATIEN TS. Sustainability Specialist ID - JAKE [id number] 06:49:02 Test Item Value Reference Range Interpretation Comments MAGNESIUM (BEAKER) (test code = 2.1 mg/dL 1.6-2.6 627) Sustainability Specialist ID - JAKE MRAD, CHEST, 1 VIEW, NON [id number] 06:20:00Reason for exam:->intubatedShould this be performed at the bedside?->Yes [facility] : 1950 Sex: MFINAL REPORT RAD, CHEST, 1 VIEW, NON DEPT INDICATION: intubated COMPARISON: Priorday's exam FINDINGS: Portable frontal view of the chest. IMPRESSION: Support Lines: Overlying leads.Feeding tube descends below the diaphragm. Lungs and pleura: Bibasilar airspace disease persists. The left lung is predominantly clear. Multiple medical devices overlie the region previously concerningfor pneumothorax or no determination can be made on current radiograph. Heart and mediastinum: Normal contours. Additional findings: None. Signed: Luke Parikh MDReport Verified Date/Time: 07/15/2021 06:20:40 D GAS, [id number] 06:05:25 Test Item Value Reference Range Interpretation Comments PH VENOUS (BEAKER) (test code = 7.40 7.32-7.42 701) PCO2 VENOUS (BEAKER) (test code = 52 mm Hg 41-51 H 755) PO2 VENOUS (BEAKER) (test code = 48 mm Hg 25-40 H 702) O2 SATURATION VENOUS (BEAKER) 83.3 % 40.0-70.0 H (test code = 703) HCO3 VENOUS (BEAKER) (test code = 31 mmol/L 21-29 H 705) BASE EXCESS VENOUS (BEAKER) (test 5.6 mmol/L -2.0-3.0 H code = 704) PATIENT TEMPERATURE (BEAKER) (test 37.0 code = 1818) CBC W/PLT COUNT & AUTO [id number] 06:05:23 Test Item Value Reference Range Interpretation Comments WHITE BLOOD CELL COUNT (BEAKER) 9.5 K/ L 3.5-10.5 (test code = 775) RED BLOOD CELL COUNT (BEAKER) 2.99 M/ L 4.63-6.08 L (test code = 761) HEMOGLOBIN (BEAKER) (test code = 8.4 GM/DL 13.7-17.5 L 410) HEMATOCRIT (BEAKER) (test code = 27.9 % 40.1-51.0 L 411) MEAN CORPUSCULAR VOLUME (BEAKER) 93.3 fL 79.0-92.2 H (test code = 753) MEAN CORPUSCULAR HEMOGLOBIN 28.1 pg 25.7-32.2 (BEAKER) (test code = 751) MEAN CORPUSCULAR HEMOGLOBIN CONC 30.1 GM/DL 32.3-36.5 L (BEAKER) (test code = 752) RED CELL DISTRIBUTION WIDTH 18.1 % 11.6-14.4 H (BEAKER) (test code = 412) PLATELET COUNT (BEAKER) (test 351 K/CU MM 150-450 code = 756) MEAN PLATELET VOLUME (BEAKER) 10.7 fL 9.4-12.4 (test code = 754) NUCLEATED RED BLOOD CELLS 0 /100 WBC 0-0 (BEAKER) (test code = 413) NEUTROPHILS RELATIVE PERCENT 70 % (BEAKER) (test code = 429) LYMPHOCYTES RELATIVE PERCENT 15 % (BEAKER) (test code = 430) MONOCYTES RELATIVE PERCENT 13 % (BEAKER) (test code = 431) EOSINOPHILS RELATIVE PERCENT 1 % (BEAKER) (test code = 432) BASOPHILS RELATIVE PERCENT 1 % (BEAKER) (test code = 437) NEUTROPHILS ABSOLUTE COUNT 6.67 K/ L 1.78-5.38 H (BEAKER) (test code = 670) LYMPHOCYTES ABSOLUTE COUNT 1.41 K/ L 1.32-3.57 (BEAKER) (test code = 414) MONOCYTES ABSOLUTE COUNT (BEAKER) 1.20 K/ L 0.30-0.82 H (test code = 415) EOSINOPHILS ABSOLUTE COUNT 0.05 K/ L 0.04-0.54 (BEAKER) (test code = 416) BASOPHILS ABSOLUTE COUNT (BEAKER) 0.05 K/ L 0.01-0.08 (test code = 417) IMMATURE GRANULOCYTES-RELATIVE 1 % 0-1 PERCENT (BEAKER) (test code = 2801) POCT-GLUCOSE [id number] 05:29:51 Test Item Value Reference Range Interpretation Comments POC-GLUCOSE METER 124 mg/dL 70-110 H : TESTED A T [facility] 6720 (BEAKER) (test code = [facility], 153) 39244: Sustainability Specialist/Techni salma ID = [id number] for UAgnes LOPEZ, CARMELINA POCT-GLUCOSE [id number] 00:22:15 Test Item Value Reference Range Interpretation Comments POC-GLUCOSE METER 161 mg/dL 70-110 H : TESTED A T [facility] 6720 (BEAKER) (test code [facility], = 1538) 90866: Sustainability Specialist/Techni salma ID = [id number] for Tita Muniz POCT-GLUCOSE [id number] 23:55:42 Test Item Value Reference Range Interpretation Comments POC-GLUCOSE METER 169 mg/dL 70-110 H : TESTED A T [facility] 6720 (BEAKER) (test code = [facility], 1538) 92768: Sustainability Specialist/Techni salma ID = [id number] for CARMELINA GIL POCT-GLUCOSE [id number] 20:25:20 Test Item Value Reference Range Interpretation Comments POC-GLUCOSE METER 179 mg/dL 70-110 H : TESTED A T [facility] 6720 (BEAKER) (test code [facility], = 1538) 89676: Sustainability Specialist/Techni salma ID = [id number] for Tita Muniz POCT-GLUCOSE [id number] 19:00:51 Test Item Value Reference Range Interpretation Comments POC-GLUCOSE METER 173 mg/dL 70-110 H : TESTED A T [facility] 6720 (BEAKER) (test code [facility], = 1538) 01871: Sustainability Specialist/Techni salma ID = [id number] for Mayank Garcia, Gene sis POCT-GLUCOSE [id number] 12:37:10 Test Item Value Reference Range Interpretation Comments POC-GLUCOSE METER 190 mg/dL 70-110 H : TESTED A T [facility] 6720 (BEAKER) (test code [facility], = 1538) 82522: Sustainability Specialist/Techni salma ID = [id number] for Rodr lena Garcia, Gene sis MISCELLANEOUS LAB [id number] 09:37:51 Test Item Value Reference Range Interpretation Comments SCAN RESULT (test code = See scanned report [id number]) See scanned reportRAD, CHEST, 1 VIEW, NON [id number] 06:30:00Reason for exam:->intubatedShould this be performed at the bedside?->Yes [facility] : 1950 Sex: MFINAL REPORT RAD, CHEST, 1 VIEW, NON DEPT INDICATION: intubated COMPARISON: Priorday's exam FINDINGS: Portable frontal view of the chest. IMPRESSION: Support Lines: Stable. Lungs and pleura: Unchanged airspace and pleural opacities. Curvilinear opacity over the right lateral lung may represent skinfold however small pneumothorax cannot definitively be excluded. Recommend short interval follow-up.Heart and mediastinum: Stable contours. Stable surgical changes.Additional findings: None. Signed: Jacque Mcneal Verified Date/Time: 07/14/2021 06:30:41 HEPATIC FUNCTION [id number] 05:58:39 Test Item Value Reference Range Interpretation Comments TOTAL PROTEIN (BEAKER) (test code = 6.0 gm/dL 6.0-8.3 770) ALBUMIN (BEAKER) (test code = 1145) 2.8 g/dL 3.5-5.0 L BILIRUBIN TOTAL (BEAKER) (test code 0.3 mg/dL 0.2-1.2 = 377) BILIRUBIN DIRECT (BEAKER) (test 0.2 mg/dL 0.1-0.5 code = 706) ALKALINE PHOSPHATASE (BEAKER) (test 82 U/L 40-150 code = 346) AST (SGOT) (BEAKER) (test code = 22 U/L 5-34 353) ALT (SGPT) (BEAKER) (test code = 31 U/L 6-55 347) Sustainability Specialist ID - PIAYA LBASIC METABOLIC [id number] 05:58:38 Test Item Value Reference Range Interpretation Comments SODIUM (BEAKER) 136 meq/L 136-145 (test code = 381) POTASSIUM (BEAKER) 4.9 meq/L 3.5-5.1 (test code = 379) CHLORIDE (BEAKER) 101 meq/L 98-107 (test code = 382) CO2 (BEAKER) (test 26 meq/L 22-29 code = 355) BLOOD UREA NITROGEN 26 mg/dL 7-21 H (BEAKER) (test code = 354) CREATININE (BEAKER) 0.88 mg/dL 0.57-1.25 (test code = 358) GLUCOSE RANDOM 188 mg/dL 70-105 H (BEAKER) (test code = 652) CALCIUM (BEAKER) 9.8 mg/dL 8.4-10.2 (test code = 697) EGFR (BEAKER) (test 85 mL/min/1.73 ESTIMA OZIEL GFR IS code = 1092) sq m NOT ACCURATE CREATININE CLEARANCE IN PREDICTING GLOMERULAR FILTRATION RATE . ESTIMATED GFR I S NOT APPLICABLE FOR DIALYSIS PATIEN TS. Sustainability Specialist ID - JULIETTE [id number] 05:58:38 Test Item Value Reference Range Interpretation Comments MAGNESIUM (BEAKER) (test code = 2.0 mg/dL 1.6-2.6 627) Sustainability Specialist ID - JULIETTE LPOCT-GLUCOSE [id number] 05:40:43 Test Item Value Reference Range Interpretation Comments POC-GLUCOSE METER 156 mg/dL 70-110 H : TESTED A T [facility] 6720 (BEAKER) (test code = [facility] [place], 1538) 53209: Sustainability Specialist/Techni salma ID = [id number] for TYRA MARK BLOOD GAS, [id number] 05:15:55 Test Item Value Reference Range Interpretation Comments PH VENOUS (BEAKER) (test code = 7.41 7.32-7.42 701) PCO2 VENOUS (BEAKER) (test code = 48 mm Hg 41-51 755) PO2 VENOUS (BEAKER) (test code = 53 mm Hg 25-40 H 702) O2 SATURATION VENOUS (BEAKER) 87.7 % 40.0-70.0 H (test code = 703) HCO3 VENOUS (BEAKER) (test code = 30 mmol/L 21-29 H 705) BASE EXCESS VENOUS (BEAKER) (test 4.7 mmol/L -2.0-3.0 H code = 704) PATIENT TEMPERATURE (BEAKER) (test 37.0 code = 1818) CBC W/PLT COUNT & AUTO [id number] 05:03:46 Test Item Value Reference Range Interpretation Comments WHITE BLOOD CELL COUNT (BEAKER) 10.4 K/ L 3.5-10.5 (test code = 775) RED BLOOD CELL COUNT (BEAKER) 2.89 M/ L 4.63-6.08 L (test code = 761) HEMOGLOBIN (BEAKER) (test code = 8.0 GM/DL 13.7-17.5 L 410) HEMATOCRIT (BEAKER) (test code = 27.9 % 40.1-51.0 L 411) MEAN CORPUSCULAR VOLUME (BEAKER) 96.5 fL 79.0-92.2 H (test code = 753) MEAN CORPUSCULAR HEMOGLOBIN 27.7 pg 25.7-32.2 (BEAKER) (test code = 751) MEAN CORPUSCULAR HEMOGLOBIN CONC 28.7 GM/DL 32.3-36.5 L (BEAKER) (test code = 752) RED CELL DISTRIBUTION WIDTH 18.4 % 11.6-14.4 H (BEAKER) (test code = 412) PLATELET COUNT (BEAKER) (test 322 K/CU MM 150-450 code = 756) MEAN PLATELET VOLUME (BEAKER) 11.1 fL 9.4-12.4 (test code = 754) NUCLEATED RED BLOOD CELLS 0 /100 WBC 0-0 (BEAKER) (test code = 413) NEUTROPHILS RELATIVE PERCENT 70 % (BEAKER) (test code = 429) LYMPHOCYTES RELATIVE PERCENT 15 % (BEAKER) (test code = 430) MONOCYTES RELATIVE PERCENT 12 % (BEAKER) (test code = 431) EOSINOPHILS RELATIVE PERCENT 1 % (BEAKER) (test code = 432) BASOPHILS RELATIVE PERCENT 0 % (BEAKER) (test code = 437) NEUTROPHILS ABSOLUTE COUNT 7.33 K/ L 1.78-5.38 H (BEAKER) (test code = 670) LYMPHOCYTES ABSOLUTE COUNT 1.59 K/ L 1.32-3.57 (BEAKER) (test code = 414) MONOCYTES ABSOLUTE COUNT (BEAKER) 1.21 K/ L 0.30-0.82 H (test code = 415) EOSINOPHILS ABSOLUTE COUNT 0.09 K/ L 0.04-0.54 (BEAKER) (test code = 416) BASOPHILS ABSOLUTE COUNT (BEAKER) 0.04 K/ L 0.01-0.08 (test code = 417) IMMATURE GRANULOCYTES-RELATIVE 1 % 0-1 PERCENT (BEAKER) (test code = 2801) POCT-GLUCOSE [id number] 23:48:08 Test Item Value Reference Range Interpretation Comments POC-GLUCOSE METER 165 mg/dL 70-110 H : TESTED A T [facility] 6720 (BEAKER) (test code = [facility], 1538) 78620: Sustainability Specialist/Techni salma ID = [id number] for TYRA MARK POCT-GLUCOSE [id number] 20:49:24 Test Item Value Reference Range Interpretation Comments POC-GLUCOSE METER 212 mg/dL 70-110 H : [facility] T [facility] 6720 [facility] (test code = [facility], 1538) 56186: Sustainability Specialist/Techni salma ID = [id number] for TISH FOY POCT-GLUCOSE [id number] 18:02:13 Test Item Value Reference Range Interpretation Comments POC-GLUCOSE METER 188 mg/dL 70-110 H : TESTED A T [facility] 6720 (BEAKER) (test code = [facility], 1538) 82725: Sustainability Specialist/Techni salma ID = [id number] for MILE MONTEMAYOR POCT-GLUCOSE [id number] 12:15:55 Test Item Value Reference Range Interpretation Comments POC-GLUCOSE METER 155 mg/dL 70-110 H : TESTED A T [facility] 6720 (BEAKER) (test code = [facility], 1538) 64876: Sustainability Specialist/Techni salma ID = [id number] for MILE MONTEMAYOR RAD, CHEST, 1 VIEW, NON [id number] 05:26:00Reason for exam:- >intubatedShould this be performed at the bedside?->Yes [facility]IND[facility] : 1950 Sex: MFINAL REPORT RAD, CHEST, 1 VIEW, NON DEPT INDICATION: intubated COMPARISON: Priorday's exam FINDINGS: Portable frontal view of the chest. IMPRESSION: Support Lines: Stable. Lungs and pleura: Unchanged airspace and pleural opacities. No pneumothorax.Heart and mediastinum: Stable contours. Additional findings: None. Signed: Jacque Mcneal Verified Date/Time: 205:26:55 POCT-GLUCOSE [id number] 05:14:35 Test Item Value Reference Range Interpretation Comments POC-GLUCOSE METER 175 mg/dL 70-110 H : TESTED A T [facility] 6720 (BEAKER) (test code = [facility] [place], 1538) 91285: Sustainability Specialist/Techni salma ID = [id number] for TYRA MARK BLOOD GAS, [id number] 03:33:37 Test Item Value Reference Range Interpretation Comments PH VENOUS (BEAKER) (test code = 7.44 7.32-7.42 H 701) PCO2 VENOUS (BEAKER) (test code = 43 mm Hg 41-51 755) PO2 VENOUS (BEAKER) (test code = 73 mm Hg 25-40 H 702) O2 SATURATION VENOUS (BEAKER) 95.0 % 40.0-70.0 H (test code = 703) HCO3 VENOUS (BEAKER) (test code = 28 mmol/L 21-29 705) BASE EXCESS VENOUS (BEAKER) (test 3.7 mmol/L -2.0-3.0 H code = 704) PATIENT TEMPERATURE (BEAKER) (test 37.0 code = 1818) FIO2 (BEAKER) (test code = 1819) 21.0 BASIC METABOLIC [id number] 03:14:39 Test Item Value Reference Range Interpretation Comments SODIUM (BEAKER) 136 meq/L 136-145 (test code = 381) POTASSIUM (BEAKER) 4.6 meq/L 3.5-5.1 (test code = 379) CHLORIDE (BEAKER) 102 meq/L 98-107 (test code = 382) CO2 (BEAKER) (test 27 meq/L 22-29 code = 355) BLOOD UREA NITROGEN 24 mg/dL 7-21 H (BEAKER) (test code = 354) CREATININE (BEAKER) 0.88 mg/dL 0.57-1.25 (test code = 358) GLUCOSE RANDOM 214 mg/dL 70-105 H (BEAKER) (test code = 652) CALCIUM (BEAKER) 9.6 mg/dL 8.4-10.2 (test code = 697) EGFR (BEAKER) (test 85 mL/min/1.73 ESTIMA OZIEL GFR IS code = 1092) sq m NOT ACCURATE CREATININE CLEARANCE IN PREDICTING GLOMERULAR FILTRATION RATE . ESTIMATED GFR I S NOT APPLICABLE FOR DIALYSIS PATIEN TS. Sustainability Specialist ID - JAKE [id number] 03:14:39 Test Item Value Reference Range Interpretation Comments MAGNESIUM (BEAKER) (test code = 1.9 mg/dL 1.6-2.6 627) Sustainability Specialist ID - JAKE MCBC W/PLT COUNT & AUTO [id number] 02:58:37 Test Item Value Reference Range Interpretation Comments WHITE BLOOD CELL COUNT (BEAKER) 9.1 K/ L 3.5-10.5 (test code = 775) RED BLOOD CELL COUNT (BEAKER) 2.74 M/ L 4.63-6.08 L (test code = 761) HEMOGLOBIN (BEAKER) (test code = 7.8 GM/DL 13.7-17.5 L 410) HEMATOCRIT (BEAKER) (test code = 26.1 % 40.1-51.0 L 411) MEAN CORPUSCULAR VOLUME (BEAKER) 95.3 fL 79.0-92.2 H (test code = 753) MEAN CORPUSCULAR HEMOGLOBIN 28.5 pg 25.7-32.2 (BEAKER) (test code = 751) MEAN CORPUSCULAR HEMOGLOBIN CONC 29.9 GM/DL 32.3-36.5 L (BEAKER) (test code = 752) RED CELL DISTRIBUTION WIDTH 18.8 % 11.6-14.4 H (BEAKER) (test code = 412) PLATELET COUNT (BEAKER) (test 286 K/CU MM 150-450 code = 756) MEAN PLATELET VOLUME (BEAKER) 11.1 fL 9.4-12.4 (test code = 754) NUCLEATED RED BLOOD CELLS 0 /100 WBC 0-0 (BEAKER) (test code = 413) NEUTROPHILS RELATIVE PERCENT 73 % (BEAKER) (test code = 429) LYMPHOCYTES RELATIVE PERCENT 16 % (BEAKER) (test code = 430) MONOCYTES RELATIVE PERCENT 10 % (BEAKER) (test code = 431) EOSINOPHILS RELATIVE PERCENT 1 % (BEAKER) (test code = 432) BASOPHILS RELATIVE PERCENT 0 % (BEAKER) (test code = 437) NEUTROPHILS ABSOLUTE COUNT 6.64 K/ L 1.78-5.38 H (BEAKER) (test code = 670) LYMPHOCYTES ABSOLUTE COUNT 1.41 K/ L 1.32-3.57 (BEAKER) (test code = 414) MONOCYTES ABSOLUTE COUNT (BEAKER) 0.86 K/ L 0.30-0.82 H (test code = 415) EOSINOPHILS ABSOLUTE COUNT 0.05 K/ L 0.04-0.54 (BEAKER) (test code = 416) BASOPHILS ABSOLUTE COUNT (BEAKER) 0.04 K/ L 0.01-0.08 (test code = 417) IMMATURE GRANULOCYTES-RELATIVE 1 % 0-1 PERCENT (BEAKER) (test code = 2801) POCT-GLUCOSE [id number] 23:54:47 Test Item Value Reference Range Interpretation Comments POC-GLUCOSE METER 218 mg/dL 70-110 H : TESTED A T [facility] 6720 (BEAKER) (test code = [facility], 1538) 95147: Sustainability Specialist/Techni salma ID = [id number] for TYRA MARK POCT-GLUCOSE [id number] 21:07:00 Test Item Value Reference Range Interpretation Comments POC-GLUCOSE METER 239 mg/dL 70-110 H : TESTED A T [facility] 6720 (BEAKER) (test code = [facility], 1538) 34513: Sustainability Specialist/Techni salma ID = [id number] for Mely Jimenez POCT-GLUCOSE [id number] 17:43:49 Test Item Value Reference Range Interpretation Comments POC-GLUCOSE METER 145 mg/dL 70-110 H : TESTED A T [facility] 6720 (BEAKER) (test code = [facility], 1538) 84286: Sustainability Specialist/Techni salma ID = [id number] for MILE MONTEMAYOR POCT-GLUCOSE [id number] 11:54:46 Test Item Value Reference Range Interpretation Comments POC-GLUCOSE METER 205 mg/dL 70-110 H : TESTED A T [facility] 6720 (BEAKER) (test code = [facility] [place], 1538) 63642: Sustainability Specialist/Techni salma ID = [id number] for MILE MONTEMAYOR MEMO 24 hour [id number] 09:35:15 Test Item Value Reference Range Interpretation Comments Scan Result (test code = see scanned result [id number]) BANDAR (test code = BANDAR) see scanned result [facility] [id number] 09:35:15 Test Item Value Reference Range Interpretation Comments SCAN RESULT (test code = see scanned result [id number]) see scanned resultRAD, CHEST, 1 VIEW, NON [id number] 08:53:00Reason for exam:->intubatedShould this be performed at the bedside?->Yes [facility] : 1950 Sex: MFINAL REPORT Exam: RAD, CHEST, 1 VIEW, NON DEPTDate: 07/12/2021 8:51 AM Indication:intubatedComparison: 07/11/2021 FINDINGS: Lines/Tubes/Devices: Dobbhoff tube in place seen coursing below the diaphragm with the distal tip collimated out of view. Status post sternotomy. Overlying EKG leads. Lungs/pleura:Lungs are well inflated, improved left base aeration. Prominent vascular and interstitial markings, right greater than left. Scattered linear opacities. Trace left pleural effusion. Nopneumothorax. Heart/Mediastinum:Unchanged Bones/Soft Tissues: No acute osseous abnormality. Upper abdomen: Unremarkable. IMPRESSION:Lungs are well inflated, improved left base aeration.Overload/interstitial edema, right greater than left.Scattered linear opacities, likely segmental atelectasis.Trace left effusion. Signed: Kelvin Sosa Verified Date/Time: 07/12/2021 08:53:29 Reading Location: [facility] Radiology Reading Room POCT-GLUCOSE [id number] 07:42:29 Test Item Value Reference Range Interpretation Comments POC-GLUCOSE METER 189 mg/dL 70-110 H : TESTED A T [facility] 6720 (BEAKER) (test code = [facility] [place], 1538) 30418: Sustainability Specialist/Techni salma ID = [id number] for MILE MONTEMAYOR HEPATIC FUNCTION [id number] 07:25:17 Test Item Value Reference Range Interpretation Comments TOTAL PROTEIN (BEAKER) (test code = 5.4 gm/dL 6.0-8.3 L 770) ALBUMIN (BEAKER) (test code = 1145) 2.6 g/dL 3.5-5.0 L BILIRUBIN TOTAL (BEAKER) (test code 0.4 mg/dL 0.2-1.2 = 377) BILIRUBIN DIRECT (BEAKER) (test 0.2 mg/dL 0.1-0.5 code = 706) ALKALINE PHOSPHATASE (BEAKER) (test 70 U/L 40-150 code = 346) AST (SGOT) (BEAKER) (test code = 20 U/L 5-34 353) ALT (SGPT) (BEAKER) (test code = 35 U/L 6-55 347) Sustainability Specialist ID - JAKE MBASIC METABOLIC [id number] 07:25:16 Test Item Value Reference Range Interpretation Comments SODIUM (BEAKER) 139 meq/L 136-145 (test code = 381) POTASSIUM (BEAKER) 4.8 meq/L 3.5-5.1 (test code = 379) CHLORIDE (BEAKER) 105 meq/L 98-107 (test code = 382) CO2 (BEAKER) (test 29 meq/L 22-29 code = 355) BLOOD UREA NITROGEN 22 mg/dL 7-21 H (BEAKER) (test code = 354) CREATININE (BEAKER) 0.86 mg/dL 0.57-1.25 (test code = 358) GLUCOSE RANDOM 190 mg/dL 70-105 H (BEAKER) (test code = 652) CALCIUM (BEAKER) 9.2 mg/dL 8.4-10.2 (test code = 697) EGFR (BEAKER) (test 87 mL/min/1.73 ESTIMA OZIEL GFR IS code = 1092) sq m NOT ACCURATE CREATININE CLEARANCE IN PREDICTING GLOMERULAR FILTRATION RATE . ESTIMATED GFR I S NOT APPLICABLE FOR DIALYSIS PATIEN TS. Sustainability Specialist ID - JAKE [id number] 07:25:16 Test Item Value Reference Range Interpretation Comments MAGNESIUM (BEAKER) (test code = 2.0 mg/dL 1.6-2.6 627) Sustainability Specialist ID - JAKE MCBC W/PLT COUNT & AUTO [id number] 07:03:16 Test Item Value Reference Range Interpretation Comments WHITE BLOOD CELL COUNT (BEAKER) 8.4 K/ L 3.5-10.5 (test code = 775) RED BLOOD CELL COUNT (BEAKER) 2.48 M/ L 4.63-6.08 L (test code = 761) HEMOGLOBIN (BEAKER) (test code = 7.1 GM/DL 13.7-17.5 L 410) HEMATOCRIT (BEAKER) (test code = 24.4 % 40.1-51.0 L 411) MEAN CORPUSCULAR VOLUME (BEAKER) 98.4 fL 79.0-92.2 H (test code = 753) MEAN CORPUSCULAR HEMOGLOBIN 28.6 pg 25.7-32.2 (BEAKER) (test code = 751) MEAN CORPUSCULAR HEMOGLOBIN CONC 29.1 GM/DL 32.3-36.5 L (BEAKER) (test code = 752) RED CELL DISTRIBUTION WIDTH 19.2 % 11.6-14.4 H (BEAKER) (test code = 412) PLATELET COUNT (BEAKER) (test 235 K/CU MM 150-450 code = 756) MEAN PLATELET VOLUME (BEAKER) 11.4 fL 9.4-12.4 (test code = 754) NUCLEATED RED BLOOD CELLS 0 /100 WBC 0-0 (BEAKER) (test code = 413) NEUTROPHILS RELATIVE PERCENT 74 % (BEAKER) (test code = 429) LYMPHOCYTES RELATIVE PERCENT 16 % (BEAKER) (test code = 430) MONOCYTES RELATIVE PERCENT 8 % (BEAKER) (test code = 431) EOSINOPHILS RELATIVE PERCENT 1 % (BEAKER) (test code = 432) BASOPHILS RELATIVE PERCENT 1 % (BEAKER) (test code = 437) NEUTROPHILS ABSOLUTE COUNT 6.20 K/ L 1.78-5.38 H (BEAKER) (test code = 670) LYMPHOCYTES ABSOLUTE COUNT 1.36 K/ L 1.32-3.57 (BEAKER) (test code = 414) MONOCYTES ABSOLUTE COUNT (BEAKER) 0.63 K/ L 0.30-0.82 (test code = 415) EOSINOPHILS ABSOLUTE COUNT 0.08 K/ L 0.04-0.54 (BEAKER) (test code = 416) BASOPHILS ABSOLUTE COUNT (BEAKER) 0.04 K/ L 0.01-0.08 (test code = 417) IMMATURE GRANULOCYTES-RELATIVE 1 % 0-1 PERCENT (BEAKER) (test code = 2801) BLOOD GAS, [id number] 06:50:14 Test Item Value Reference Range Interpretation Comments PH VENOUS (BEAKER) (test code = 7.38 7.32-7.42 701) PCO2 VENOUS (BEAKER) (test code = 53 mm Hg 41-51 H 755) PO2 VENOUS (BEAKER) (test code = 40 mm Hg 25-40 702) O2 SATURATION VENOUS (BEAKER) 75.7 % 40.0-70.0 H (test code = 703) HCO3 VENOUS (BEAKER) (test code = 31 mmol/L 21-29 H 705) BASE EXCESS VENOUS (BEAKER) (test 4.5 mmol/L -2.0-3.0 H code = 704) PATIENT TEMPERATURE (BEAKER) (test 36.1 code = 1818) FIO2 (BEAKER) (test code = 1819) 40.0 POCT-GLUCOSE [id number] 00:09:59 Test Item Value Reference Range Interpretation Comments POC-GLUCOSE METER 212 mg/dL 70-110 H : TESTED A T [facility] 6720 (BEAKER) (test code = [facility] [place], 1538) 30516: Sustainability Specialist/Techni salma ID = [id number] for Mely Jimenez Blood Culture - Routine (Right Venipuncture)2021-07-11 19:00:58 Test Item Value Reference Range Interpretation Comments Result (test code = No growth in 5 days 6463-4) [facility] [id number] 19:00:58 Test Item Value Reference Range Interpretation Comments CULTURE (BEAKER) (test No growth in 5 days code = 1095) BLOOD [id number] 19:00:57 Test Item Value Reference Range Interpretation Comments CULTURE (BEAKER) (test No growth in 5 days code = 1095) POCT-GLUCOSE [id number] 17:08:40 Test Item Value Reference Range Interpretation Comments POC-GLUCOSE METER 204 mg/dL 70-110 H : TESTED A T [facility] 6720 (BEAKER) (test code = [facility] [place], 1538) 19072: Sustainability Specialist/Techni salma ID = [id number] for RENAE SHERMAN Serum [id number] 13:51:14 Test Item Value Reference Range Interpretation Comments IgA (test code = 388 mg/dL 63-484 2458-8) IgG (test code = 1042 mg/dL 540-1822 2465-3) IgM (test code = 89 mg/dL 22-293 2464-6) SERUM IT ID (test Serum immunophenotyping code = 3817) results are equivocal. The specimen will be sent out for additional confirmatory testing. The results will be reported in [facility]. Pathologist: Lynn Ewing M.D. (test code = 3801) BANDAR (test code = Sustainability Specialist ID Cory PORTILLO) [facility] [id number] 13:51:14 Test Item Value Reference Interpretation Comments Range IMMUNOGLOBULIN A 388 mg/dL 63-484 (IGA) (BEAKER) (test code = 639) IMMUNOGLOBULIN G 1042 mg/dL See_Comment [Automated (IGG) (BEAKER) message] The (test code = 427) system [facility] generated this result transmitted reference range: 540-1,822. The reference range was not used to interpret this result as normal/abnormal . IMMUNOGLOBULIN M 89 mg/dL 22-293 (IGM) (BEAKER) (test code = 638) SERUM IT ID Serum 6144(GALE) (test immunophenotyping code = 3817) results are equivocal. The specimen will be sent out for additional confirmatory testing. The results will be reported in [facility]. [facility] [place]-PATHOLOGIST-"Mary Ewing, [id number]" (GALE) María (test code = 3801) Sustainability Specialist ID - JAKE MPROTEIN ELECTROPHORESIS, SERUM WITH REFLEX TO IMMUNOTYPING 2021-07-11 13:28:46 Test Item Value Reference Interpretation Comments Range Albumin Fraction 2.3 See_Comment L [Automated (test code = 2862-1) message ] The system which generated this result transmitted reference range : 3.5 - 5.5 gm/dL . The reference range was not used to interpret this result as normal/abnormal . Alpha 1 Fraction 0.5 See_Comment H [Automated (test code = 2865-4) message ] The system which generated this result transmitted reference range : 0.2 - 0.4 gm/dL . The reference range was not used to interpret this result as normal/abnormal . Alpha 2 Fraction 1.0 See_Comment [Automated (test code = 2868-8) message ] The system which generated this result transmitted reference range : 0.4 - 1.0 gm/dL . The reference range was not used to interpret this result as normal/abnormal . Beta Fraction (test 0.6 See_Comment [Automa oziel code = 392) message] The system which generated this result transmitted reference range : 0.5 - 1.1 gm/dL . The reference range was not used to interpret this result as normal/abnormal . Gamma Globulin 1.0 See_Comment [Automated Fraction (test code message] The = 391) system which generated this result transmitted reference range : 0.7 - 1.6 gm/dL . The reference range was not used to interpret this result as normal/abnormal . Interpretation (test Total protein and code = 25620-9) albumin are decreased while the relative concentrations of alpha globulins are increased suggesting an acute phase response to infection, inflammation or tissue injury. Serum immunophenotyping ordered to exclude monoclonal gammopathy. Pathologist: (test Lynn Ewing, code = 2616) MStew Protein, Total (test 5.4 See_Comment L [Autom ated code = 2885-2) message] The system which generated this result transmitted reference range : 6.0 - 8.3 gm/dL . The reference range was not used to interpret this result as normal/abnormal . BANDAR (test code = Sustainability Specialist ID - AMY BANDAR) GOperator ID - ADM Lab Interpretation Abnormal (test code = 67007-7) [facility] SERUM WITH REFLEX TO [id number] 13:28:46 Test Item Value Reference Range Interpretation Comments ALBUMIN FRACTION 2.3 gm/dL 3.5-5.5 L (BEAKER) (test code = 405) ALPHA 1 FRACTION 0.5 gm/dL 0.2-0.4 H (BEAKER) (test code = 389) ALPHA 2 FRACTION 1.0 gm/dL 0.4-1.0 (BEAKER) (test code = 390) BETA FRACTION 0.6 gm/dL 0.5-1.1 (BEAKER) (test code = 392) GAMMA GLOBULIN 1.0 gm/dL 0.7-1.6 FRACTION (BEAKER) (test code = 391) INTERPRETATION-119 Total protein and albumin (BEAKER) (test code are decreased while the = 2615) relative concentrations of alpha globulins are increased suggesting an acute phase response to infection, inflammation or tissue injury. Serum immunophenotyping ordered to exclude monoclonal gammopathy. [id number] Lynn Ewing M.D. (BEAKER) (test code = 2616) PROTEIN TOTAL SERUM, 5.4 gm/dL 6.0-8.3 L SPEP (BEAKER) (test code = 2660) Sustainability Specialist ID - AMY GOperator ID - ADMPOCT-GLUCOSE [id number] 12:16:57 Test Item Value Reference Range Interpretation Comments POC-GLUCOSE METER 201 mg/dL 70-110 H : TESTED A T [facility] 6720 (BEAKER) (test code [facility], = 1538) 54066: Sustainability Specialist/Techni salma ID = [id number] for Alex Witt Sputum Culture + Gram [id number] 10:42:29 Test Item Value Reference Interpretation Comments Range Result (test code = <1+ Same organism A Ref er to previous 6463-4) has been isolated culture from cultures(s) of ofMethic illin the same body site resistant within 3 days. Staphylococcu s Repeat aureusof a seco nd identification and type susceptibility testing performed only after consultation with the clinical microbiology laboratory. Gram Stain Result No organisms seen (test code = 1123) BANDAR (test code = BANDAR) Lab Interpretation Abnormal (test code = 64067-3) [facility] [id number] 10:42:29 Test Item Value Reference Range Interpretation Comments CULTURE A <1+ Same organi sm has (BEAKER) (test been isolated from code = 1095) cultures(s) of the same body site within 3 days. Repeat identification and susceptibility testing perform ed only after consultation wi the clinical microb iology laboratory.Refe r to previous cultur e ofMethicillin resistant Staphylococcus aureusof a [place] type GRAM STAIN <1+ White blood RESULT (BEAKER) cells seen (test code = 1123) GRAM STAIN 0-5 epithelial RESULT (BEAKER) cells (test code = 966238) GRAM STAIN No organisms seen RESULT (BEAKER) (test code = 468278) HEMOGLOBIN [id number] 10:06:03 Test Item Value Reference Range Interpretation Comments HEMOGLOBIN A1C 6.4 % See_Comment H [Automated m essage] ELECTROPHORESIS (BEAKER) The system which (test code = 3811) generated this result transmitted ref erence range: <=5.6%. The reference range was not used to int erpret this result as normal/abnormal . "The A1c is measured using a [employer]SP-certified method. HbA1c value equal to or greater than 6.5% as thediagnosis cutoff for diabetes. An HbA1c value of 5.7- 6.4% indicates increased risk for diabetes (prediabetes)."Sustainability Specialist ID - ADMOperator ID - ADMRAD, CHEST, 1 VIEW, NON [id number] 08:13:00Reason for exam:->intubatedShould this be performed at the bedside?->Yes [facility] 1950 Sex: MFINAL REPORT Exam: RAD, CHEST, 1 VIEW, NON DEPTDate: 07/11/2021 8:12 AM Indication:intubatedComparison: 07/10/2021 FINDINGS: Lines/Tubes/Devices: Dobbhoff tube in place seen coursing below the diaphragm with the distal tip projecting over the gastric lumen, prepyloric. Status post sternotomy. Overlying EKG leads. Lungs/pleura:Lungs are well inflated. Prominent/indistinct pulmonary vascu larity. Left base airspace opacity with trace left-sided effusion. Heart/Mediastinum:Unchanged Bones/Soft Tissues: No acute osseous abnormality. Upper abdomen: Unremarkable. IMPRESSION:Lines and tubes as above.Prominent/indistinct pulmonary vascular, fluid overload/interstitial edema.Left base airspace opacity, likely atelectasis with trace left-sided effusion. Signed: Kelvin Sosa Verified Date/Time: 07/11/2021 08:13:26 Reading Location: [facility] Radiology Reading Room POCT-GLUCOSE [id number] 05:47:36 Test Item Value Reference Range Interpretation Comments POC-GLUCOSE METER 168 mg/dL 70-110 H : TESTED A T [facility] 6720 (BEAKER) (test code = [facility], 1538) [address]: Sustainability Specialist/Techni salma ID = [id number] for MS TYRA ROMAN [id number] 04:01:18 Test Item Value Reference Range Interpretation Comments MAGNESIUM (BEAKER) (test code = 2.2 mg/dL 1.6-2.6 627) Sustainability Specialist ID - DBBASIC METABOLIC [id number] 04:01:17 Test Item Value Reference Range Interpretation Comments SODIUM (BEAKER) 140 meq/L 136-145 (test code = 381) POTASSIUM (BEAKER) 4.7 meq/L 3.5-5.1 (test code = 379) CHLORIDE (BEAKER) 108 meq/L 98-107 H (test code = 382) CO2 (BEAKER) (test 26 meq/L 22-29 code = 355) BLOOD UREA NITROGEN 24 mg/dL 7-21 H (BEAKER) (test code = 354) CREATININE (BEAKER) 0.84 mg/dL 0.57-1.25 (test code = 358) GLUCOSE RANDOM 179 mg/dL 70-105 H (BEAKER) (test code = 652) CALCIUM (BEAKER) 9.2 mg/dL 8.4-10.2 (test code = 697) EGFR (BEAKER) (test 90 mL/min/1.73 ESTIMA OZIEL GFR IS code = 1092) sq m NOT ACCURATE CREATININE CLEARANCE IN PREDICTING GLOMERULAR FILTRATION RATE . ESTIMATED GFR I S NOT APPLICABLE FOR DIALYSIS PATIEN TS. Sustainability Specialist ID - DBCBC W/PLT COUNT & AUTO [id number] 03:18:08 Test Item Value Reference Range Interpretation Comments WHITE BLOOD CELL COUNT (BEAKER) 8.9 K/ L 3.5-10.5 (test code = 775) RED BLOOD CELL COUNT (BEAKER) 2.55 M/ L 4.63-6.08 L (test code = 761) HEMOGLOBIN (BEAKER) (test code = 7.1 GM/DL 13.7-17.5 L 410) HEMATOCRIT (BEAKER) (test code = 25.3 % 40.1-51.0 L 411) MEAN CORPUSCULAR VOLUME (BEAKER) 99.2 fL 79.0-92.2 H (test code = 753) MEAN CORPUSCULAR HEMOGLOBIN 27.8 pg 25.7-32.2 (BEAKER) (test code = 751) MEAN CORPUSCULAR HEMOGLOBIN CONC 28.1 GM/DL 32.3-36.5 L (BEAKER) (test code = 752) RED CELL DISTRIBUTION WIDTH 19.1 % 11.6-14.4 H (BEAKER) (test code = 412) PLATELET COUNT (BEAKER) (test 209 K/CU MM 150-450 code = 756) MEAN PLATELET VOLUME (BEAKER) 11.2 fL 9.4-12.4 (test code = 754) NUCLEATED RED BLOOD CELLS 0 /100 WBC 0-0 (BEAKER) (test code = 413) NEUTROPHILS RELATIVE PERCENT 76 % (BEAKER) (test code = 429) LYMPHOCYTES RELATIVE PERCENT 16 % (BEAKER) (test code = 430) MONOCYTES RELATIVE PERCENT 7 % (BEAKER) (test code = 431) EOSINOPHILS RELATIVE PERCENT 1 % (BEAKER) (test code = 432) BASOPHILS RELATIVE PERCENT 0 % (BEAKER) (test code = 437) NEUTROPHILS ABSOLUTE COUNT 6.74 K/ L 1.78-5.38 H (BEAKER) (test code = 670) LYMPHOCYTES ABSOLUTE COUNT 1.42 K/ L 1.32-3.57 (BEAKER) (test code = 414) MONOCYTES ABSOLUTE COUNT (BEAKER) 0.60 K/ L 0.30-0.82 (test code = 415) EOSINOPHILS ABSOLUTE COUNT 0.08 K/ L 0.04-0.54 (BEAKER) (test code = 416) BASOPHILS ABSOLUTE COUNT (BEAKER) 0.02 K/ L 0.01-0.08 (test code = 417) IMMATURE GRANULOCYTES-RELATIVE 1 % 0-1 PERCENT (BEAKER) (test code = 2801) BLOOD GAS, [id number] 03:16:40 Test Item Value Reference Range Interpretation Comments PH VENOUS (BEAKER) (test code = 7.42 7.32-7.42 701) PCO2 VENOUS (BEAKER) (test code = 45 mm Hg 41-51 755) PO2 VENOUS (BEAKER) (test code = 36 mm Hg 25-40 702) O2 SATURATION VENOUS (BEAKER) 69.9 % 40.0-70.0 (test code = 703) HCO3 VENOUS (BEAKER) (test code = 29 mmol/L 21-29 705) BASE EXCESS VENOUS (BEAKER) (test 3.9 mmol/L -2.0-3.0 H code = 704) PATIENT TEMPERATURE (BEAKER) (test 36.7 code = 1818) FIO2 (BEAKER) (test code = 1819) 21.0 POCT-GLUCOSE [id number] 00:14:28 Test Item Value Reference Range Interpretation Comments POC-GLUCOSE METER 210 mg/dL 70-110 H : TESTED A T [facility] 6720 (BEAKER) (test code = [facility] [place], 1538) [address]: Sustainability Specialist/Techni salma ID = [id number] for MS IBI, MNCEDISI POCT-GLUCOSE [id number] 21:05:00 Test Item Value Reference Range Interpretation Comments POC-GLUCOSE METER 192 mg/dL 70-110 H : TESTED A T [facility] 6720 (BEAKER) (test code = [facility], 1538) 63504: Sustainability Specialist/Techni salma ID = [id number] for Ez enwugo, Cynthia POCT-GLUCOSE [id number] 17:39:14 Test Item Value Reference Range Interpretation Comments POC-GLUCOSE METER 200 mg/dL 70-110 H : TESTED A T [facility] 6720 (BEAKER) (test code = [facility], 1538) 53085: Sustainability Specialist/Techni salma ID = [id number] for GO NZALEZ (V), TIMO POCT-GLUCOSE [id number] 14:23:15 Test Item Value Reference Range Interpretation Comments POC-GLUCOSE METER 119 mg/dL 70-110 H : TESTED A T [facility] 6720 ([facility]) (test code [facility], = 1538) 43251: Sustainability Specialist/Techni salma ID = [id number] for Alyssa alfredo (contract), Alu sine RAD, ABDOMEN/KUB, 1 VIEW [id number] 13:27:00Reason for exam:->Corpak [facility] : 1950 Sex: MFINAL REPORT Exam: RAD, ABDOMEN/KUB, 1 VIEW APDate: 07/10/2021 1:25 PM Indication:Corpak COMPARISON: One hour prior DISCUSSION/IMPRESSION: Dobbhoff tube in place seen coiling over the expected location the gastric lumen, with a prepyloric position. Nonspecific bowel gas pattern. Gas is seen throughout small bowel, with few mildly prominent loops measuring up to 3.2 cm in the mid upper abdomen. Gas is seen throughout the colon. No evidence of free air within the limitations of this study. Signed: Kelvin Sosaort Verified Date/Time: 07/10/2021 13:27:37 Reading Location: [facility] Radiology Reading Room RAD, ABDOMEN/KUB, 1 VIEW [id number] 12:09:00Reason for exam:->Feeding [facility] : 1950 Sex: MFINAL REPORT Exam: RAD, ABDOMEN/KUB, 1 VIEW APDate: 07/10/2021 12:08 PM Indication:Feeding tube placement COMPARISON: 07/10/2021 DISCUSSION/IMPRESSION: Enteric tube in place with distal tip projecting over the gastric fundus. Nonspecific nonobstructive bowel gas pattern. No evidence of free air within the limitations of this study. Signed: Kelvin Sosa Verified Date/Time: 07/10/2021 12:09:08 Reading Location: [facility] Radiology Reading Room HEMOGLOBIN A1C 2021-07-10 12:06:24 Test Item Value Reference Range Interpretation Comments HEMOGLOBIN A1C 6.5 % See_Comment H [Automated m essage] ELECTROPHORESIS (BEAKER) The system which (test code = 3811) generated this result transmitted ref erence range: <=5.6%. The reference range was not used to int erpret this result as normal/abnormal . "The A1c is measured using a [facility]-certified method. HbA1c value equal to or greater than 6.5% as thediagnosis cutoff for diabetes. An HbA1c value of 5.7- 6.4% indicates increased risk for diabetes (prediabetes)."Sustainability Specialist ID - ADMPOCT- GLUCOSE [id number] 11:28:56 Test Item Value Reference Range Interpretation Comments POC-GLUCOSE METER 76 mg/dL 70-110 : TESTED A T [facility] 6720 (GVISP 1) (test code = [facility], 1538) 70577: Sustainability Specialist/Techni salma ID = [id number] for JONAH VIZCARRA (V), TIMO POCT-GLUCOSE [id number] 09:20:56 Test Item Value Reference Range Interpretation Comments POC-GLUCOSE METER 77 mg/dL 70-110 : TESTED A T [facility] 6720 (GVISP 1) (test code = [facility], 1538) 86002: Sustainability Specialist/Techni salma ID = [id number] for JONAH VIZCARRA (V), TIMO POCT-GLUCOSE [id number] 09:17:18 Test Item Value Reference Range Interpretation Comments POC-GLUCOSE METER 98 mg/dL 70-110 : TESTED A T [facility] 6720 ([facility]) (test code = [facility], 1538) 26431: Sustainability Specialist/Techni salma ID = [id number] for Nora venancio Cynthia [id number] 07:27:59 Test Item Value Reference Range Interpretation Comments PHOSPHORUS (SPGrockit) (test code = 3.1 mg/dL 2.3-4.7 604) Sustainability Specialist ID - DBRAD, ABDOMEN/KUB, 1 VIEW [id number] 04:21:00Reason for exam:- >Corpak placement [facility] : 1950 Sex: MFINAL REPORT TECHNIQUE: Supine views of the abdomen. INDICATION: Corpak placement. COMPARISON: 07/03/2021 FINDINGS/IMPRESSION: The feeding tube coils within the gastric fundus before terminating within the distal gastric body. Otherwise, no significant interval change. Signed: Amber Haskins MDReport Verified Date/Time: 07/10/2021 04:21:46 HEPATIC FUNCTION [id number] 04:17:49 Test Item Value Reference Range Interpretation Comments TOTAL PROTEIN (BEAKER) (test code = 6.0 gm/dL 6.0-8.3 770) ALBUMIN (BEAKER) (test code = 1145) 2.9 g/dL 3.5-5.0 L BILIRUBIN TOTAL (BEAKER) (test code 0.6 mg/dL 0.2-1.2 = 377) BILIRUBIN DIRECT (BEAKER) (test 0.3 mg/dL 0.1-0.5 code = 706) ALKALINE PHOSPHATASE (BEAKER) (test 67 U/L 40-150 code = 346) AST (SGOT) (BEAKER) (test code = 38 U/L 5-34 H 353) ALT (SGPT) (BEAKER) (test code = 50 U/L 6-55 347) Sustainability Specialist ID - [id number] 04:17:48 Test Item Value Reference Range Interpretation Comments MAGNESIUM (BEAKER) (test code = 2.2 mg/dL 1.6-2.6 627) Sustainability Specialist ID - ADMINBASIC METABOLIC [id number] 04:17:47 Test Item Value Reference Range Interpretation Comments SODIUM (BEAKER) 142 meq/L 136-145 (test code = 381) POTASSIUM (BEAKER) 4.7 meq/L 3.5-5.1 (test code = 379) CHLORIDE (BEAKER) 108 meq/L 98-107 H (test code = 382) CO2 (BEAKER) (test 26 meq/L 22-29 code = 355) BLOOD UREA NITROGEN 26 mg/dL 7-21 H (BEAKER) (test code = 354) CREATININE (BEAKER) 0.82 mg/dL 0.57-1.25 (test code = 358) GLUCOSE RANDOM 163 mg/dL 70-105 H (BEAKER) (test code = 652) CALCIUM (BEAKER) 9.8 mg/dL 8.4-10.2 (test code = 697) EGFR (BEAKER) (test 92 mL/min/1.73 ESTIMA OZIEL GFR IS code = 1092) sq m NOT ACCURATE CREATININE CLEARANCE IN PREDICTING GLOMERULAR FILTRATION RATE . ESTIMATED GFR I S NOT APPLICABLE FOR DIALYSIS PATIEN TS. Sustainability Specialist ID - ADMINCBC W/PLT COUNT & AUTO [id number] 04:01:01 Test Item Value Reference Range Interpretation Comments WHITE BLOOD CELL COUNT (BEAKER) 9.5 K/ L 3.5-10.5 (test code = 775) RED BLOOD CELL COUNT (BEAKER) 2.74 M/ L 4.63-6.08 L (test code = 761) HEMOGLOBIN (BEAKER) (test code = 7.8 GM/DL 13.7-17.5 L 410) HEMATOCRIT (BEAKER) (test code = 26.8 % 40.1-51.0 L 411) MEAN CORPUSCULAR VOLUME (BEAKER) 97.8 fL 79.0-92.2 H (test code = 753) MEAN CORPUSCULAR HEMOGLOBIN 28.5 pg 25.7-32.2 (BEAKER) (test code = 751) MEAN CORPUSCULAR HEMOGLOBIN CONC 29.1 GM/DL 32.3-36.5 L (BEAKER) (test code = 752) RED CELL DISTRIBUTION WIDTH 19.1 % 11.6-14.4 H (BEAKER) (test code = 412) PLATELET COUNT (BEAKER) (test 195 K/CU MM 150-450 code = 756) MEAN PLATELET VOLUME (BEAKER) 11.1 fL 9.4-12.4 (test code = 754) NUCLEATED RED BLOOD CELLS 0 /100 WBC 0-0 (BEAKER) (test code = 413) NEUTROPHILS RELATIVE PERCENT 74 % (BEAKER) (test code = 429) LYMPHOCYTES RELATIVE PERCENT 17 % (BEAKER) (test code = 430) MONOCYTES RELATIVE PERCENT 6 % (BEAKER) (test code = 431) EOSINOPHILS RELATIVE PERCENT 2 % (BEAKER) (test code = 432) BASOPHILS RELATIVE PERCENT 0 % (BEAKER) (test code = 437) NEUTROPHILS ABSOLUTE COUNT 7.05 K/ L 1.78-5.38 H (BEAKER) (test code = 670) LYMPHOCYTES ABSOLUTE COUNT 1.62 K/ L 1.32-3.57 (BEAKER) (test code = 414) MONOCYTES ABSOLUTE COUNT (BEAKER) 0.58 K/ L 0.30-0.82 (test code = 415) EOSINOPHILS ABSOLUTE COUNT 0.16 K/ L 0.04-0.54 (BEAKER) (test code = 416) BASOPHILS ABSOLUTE COUNT (BEAKER) 0.02 K/ L 0.01-0.08 (test code = 417) IMMATURE GRANULOCYTES-RELATIVE 1 % 0-1 PERCENT (BEAKER) (test code = 2801) RAD, CHEST, 1 VIEW, NON [id number] 03:57:00Reason for exam:- >intubatedShould this be performed at the bedside?->Yes [facility] : 1950 Sex: MFINAL REPORT RAD, CHEST, 1 VIEW, NON DEPT INDICATION: intubated COMPARISON: Priorday's exam FINDINGS: Portable frontal view of the chest. IMPRESSION: Support Lines: Stable. Lungs and pleura: No focal consolidation or sizable effusion. No pneumothorax. Heart and mediastinum: Stable contours. Additional findings: None. Signed: Amber Haskins Verified Date/Time: 07/10/2021 03:57:52 BLOOD GAS, [id number] 03:54:51 Test Item Value Reference Range Interpretation Comments PH VENOUS (BEAKER) (test code = 7.39 7.32-7.42 701) PCO2 VENOUS (BEAKER) (test code = 49 mm Hg 41-51 755) PO2 VENOUS (BEAKER) (test code = 44 mm Hg 25-40 H 702) O2 SATURATION VENOUS (BEAKER) 79.0 % 40.0-70.0 H (test code = 703) HCO3 VENOUS (BEAKER) (test code = 29 mmol/L 21-29 705) BASE EXCESS VENOUS (BEAKER) (test 3.0 mmol/L -2.0-3.0 code = 704) PATIENT TEMPERATURE (BEAKER) (test 37.0 code = 1818) POCT-GLUCOSE [id number] 00:49:23 Test Item Value Reference Range Interpretation Comments POC-GLUCOSE METER 149 mg/dL 70-110 H : TESTED A T [facility] 6720 (BEAKER) (test code = [facility], 1538) 86212: Sustainability Specialist/Techni salma ID = [id number] for Ez enwugo, Cynthia POCT-GLUCOSE [id number] 21:17:55 Test Item Value Reference Range Interpretation Comments POC-GLUCOSE METER 159 mg/dL 70-110 H : TESTED A T [facility] 6720 (BEAKER) (test code = [facility], 1538) 56488: Sustainability Specialist/Techni salma ID = [id number] for Ez enwugo, Cynthia POCT-GLUCOSE [id number] 17:20:58 Test Item Value Reference Range Interpretation Comments POC-GLUCOSE METER 202 mg/dL 70-110 H : TESTED A T [facility] 6720 (BEAKER) (test code = [facility], 1538) 50064: Sustainability Specialist/Techni salma ID = [id number] for Ga lvan (contract), George id BLOOD [id number] 13:01:22 Test Item Value Reference Range Interpretation Comments CULTURE (BEAKER) (test No growth in 5 days code = 1095) BLOOD [id number] 13:01:21 Test Item Value Reference Range Interpretation Comments CULTURE (BEAKER) (test No growth in 5 days code = 1095) The specimen volume collected for this blood culture was below the optimum (10 mL per bottle or 20 mL total). Use of lower volumes may adversely affect recovery and/or detection times of some organisms.POCT-GLUCOSE [id number] 11:26:51 Test Item Value Reference Range Interpretation Comments POC-GLUCOSE METER 226 mg/dL 70-110 H : TESTED A T [facility] 6720 (BEAKER) (test code = [facility], 1538) 31465: Sustainability Specialist/Techni salma ID = [id number] for Kuldeep young (contract), George id POCT-GLUCOSE [id number] 07:25:29 Test Item Value Reference Range Interpretation Comments POC-GLUCOSE METER 243 mg/dL 70-110 H : TESTED A T [facility] 6720 (BEAKER) (test code = [facility], 1538) 11222: Sustainability Specialist/Techni salma ID = [id number] for Ez enwugo, Cynthia [id number] 06:15:43 Test Item Value Reference Range Interpretation Comments MAGNESIUM (BEAKER) (test code = 2.4 mg/dL 1.6-2.6 627) Sustainability Specialist ID - DBBASIC METABOLIC [id number] 06:15:42 Test Item Value Reference Range Interpretation Comments SODIUM (BEAKER) 141 meq/L 136-145 (test code = 381) POTASSIUM (BEAKER) 4.8 meq/L 3.5-5.1 (test code = 379) CHLORIDE (BEAKER) 109 meq/L 98-107 H (test code = 382) CO2 (BEAKER) (test 25 meq/L 22-29 code = 355) BLOOD UREA NITROGEN 30 mg/dL 7-21 H (BEAKER) (test code = 354) CREATININE (BEAKER) 0.93 mg/dL 0.57-1.25 (test code = 358) GLUCOSE RANDOM 242 mg/dL 70-105 H (BEAKER) (test code = 652) CALCIUM (BEAKER) 9.6 mg/dL 8.4-10.2 (test code = 697) EGFR (BEAKER) (test 80 mL/min/1.73 ESTIMA OZIEL GFR IS code = 1092) sq m NOT ACCURATE CREATININE CLEARANCE IN PREDICTING GLOMERULAR FILTRATION RATE . ESTIMATED GFR I S NOT APPLICABLE FOR DIALYSIS PATIEN TS. Sustainability Specialist ID - DBCBC W/PLT COUNT & AUTO [id number] 06:01:19 Test Item Value Reference Range Interpretation Comments WHITE BLOOD CELL COUNT (BEAKER) 8.9 K/ L 3.5-10.5 (test code = 775) RED BLOOD CELL COUNT (BEAKER) 3.10 M/ L 4.63-6.08 L (test code = 761) HEMOGLOBIN (BEAKER) (test code = 8.7 GM/DL 13.7-17.5 L 410) HEMATOCRIT (BEAKER) (test code = 31.1 % 40.1-51.0 L 411) MEAN CORPUSCULAR VOLUME (BEAKER) 100.3 fL 79.0-92.2 H (test code = 753) MEAN CORPUSCULAR HEMOGLOBIN 28.1 pg 25.7-32.2 (BEAKER) (test code = 751) MEAN CORPUSCULAR HEMOGLOBIN CONC 28.0 GM/DL 32.3-36.5 L (BEAKER) (test code = 752) RED CELL DISTRIBUTION WIDTH 19.4 % 11.6-14.4 H (BEAKER) (test code = 412) PLATELET COUNT (BEAKER) (test 217 K/CU MM 150-450 code = 756) MEAN PLATELET VOLUME (BEAKER) 11.4 fL 9.4-12.4 (test code = 754) NUCLEATED RED BLOOD CELLS 0 /100 WBC 0-0 (BEAKER) (test code = 413) NEUTROPHILS RELATIVE PERCENT 78 % (BEAKER) (test code = 429) LYMPHOCYTES RELATIVE PERCENT 14 % (BEAKER) (test code = 430) MONOCYTES RELATIVE PERCENT 6 % (BEAKER) (test code = 431) EOSINOPHILS RELATIVE PERCENT 1 % (BEAKER) (test code = 432) BASOPHILS RELATIVE PERCENT 0 % (BEAKER) (test code = 437) NEUTROPHILS ABSOLUTE COUNT 6.93 K/ L 1.78-5.38 H (BEAKER) (test code = 670) LYMPHOCYTES ABSOLUTE COUNT 1.24 K/ L 1.32-3.57 L (BEAKER) (test code = 414) MONOCYTES ABSOLUTE COUNT (BEAKER) 0.55 K/ L 0.30-0.82 (test code = 415) EOSINOPHILS ABSOLUTE COUNT 0.12 K/ L 0.04-0.54 (BEAKER) (test code = 416) BASOPHILS ABSOLUTE COUNT (BEAKER) 0.03 K/ L 0.01-0.08 (test code = 417) IMMATURE GRANULOCYTES-RELATIVE 1 % 0-1 PERCENT (BEAKER) (test code = 2801) BLOOD GAS, [id number] 05:48:48 Test Item Value Reference Range Interpretation Comments PH VENOUS (BEAKER) (test code = 7.40 7.32-7.42 701) PCO2 VENOUS (BEAKER) (test code = 47 mm Hg 41-51 755) PO2 VENOUS (BEAKER) (test code = 33 mm Hg 25-40 702) O2 SATURATION VENOUS (BEAKER) 62.2 % 40.0-70.0 (test code = 703) HCO3 VENOUS (BEAKER) (test code = 29 mmol/L 21-29 705) BASE EXCESS VENOUS (BEAKER) (test 3.3 mmol/L -2.0-3.0 H code = 704) PATIENT TEMPERATURE (BEAKER) (test 37.0 code = 1818) FIO2 (BEAKER) (test code = 1819) 100.0 RAD, CHEST, 1 VIEW, NON [id number] 03:25:00Reason for exam:- >intubatedShould this be performed at the bedside?->Yes [facility] : 1950 Sex: MFINAL REPORT RAD, CHEST, 1 VIEW, NON DEPT INDICATION: intubated COMPARISON: Priorday's exam FINDINGS: Portable frontal view of the chest. IMPRESSION: Support Lines: Stable feeding tube Lungs and pleura: No focal consolidation or sizable effusion. No pneumothorax. Heart and mediastinum: Stable contours. Additional findings: None. Signed: Amber Haskinseport Verified Date/Time: 07/09/2021 03:25:21 POCT-GLUCOSE [id number] 01:38:19 Test Item Value Reference Range Interpretation Comments POC-GLUCOSE METER 183 mg/dL 70-110 H : TESTED A T [facility] 6720 (BEAKER) (test code = [facility], 1538) [id number]: Sustainability Specialist/Techni salma ID = [id number] for Ez enwugo, Cynthia POCT-GLUCOSE [id number] 21:07:11 Test Item Value Reference Range Interpretation Comments POC-GLUCOSE METER 179 mg/dL 70-110 H : TESTED A T [facility] 6720 (BEAKER) (test code = [facility], 1538) [id number]: Sustainability Specialist/Techni salma ID = [id number] for Ez enwugo, Cynthia POCT-GLUCOSE [id number] 16:54:11 Test Item Value Reference Range Interpretation Comments POC-GLUCOSE METER 135 mg/dL 70-110 H : TESTED A T [facility] 6720 (BEAKER) (test code = [facility], 1538) [id number]: Sustainability Specialist/Techni salma ID = [id number] for Shiv Sawyer (contract), [facility] BASIC METABOLIC [id number] 13:39:54 Test Item Value Reference Range Interpretation Comments SODIUM (BEAKER) 141 meq/L 136-145 (test code = 381) POTASSIUM (BEAKER) 4.3 meq/L 3.5-5.1 (test code = 379) CHLORIDE (BEAKER) 110 meq/L 98-107 H (test code = 382) CO2 (BEAKER) (test 27 meq/L 22-29 code = 355) BLOOD UREA NITROGEN 34 mg/dL 7-21 H (BEAKER) (test code = 354) CREATININE (BEAKER) 0.97 mg/dL 0.57-1.25 (test code = 358) GLUCOSE RANDOM 252 mg/dL 70-105 H (GALE) (test code = 652) CALCIUM (AKER) 9.0 mg/dL 8.4-10.2 (test code = 697) EGFR ([facility]) (test 76 mL/min/1.73 ESTIMA OZIEL GFR IS code = 1092) sq m NOT ACCURATE CREATININE CLEARANCE IN PREDICTING GLOMERULAR FILTRATION RATE . ESTIMATED GFR I S NOT APPLICABLE FOR DIALYSIS PATIEN TS. Sustainability Specialist ID - JAKE MPOCT-GLUCOSE [id number] 11:51:17 Test Item Value Reference Range Interpretation Comments POC-GLUCOSE METER 241 mg/dL 70-110 H : Notified RN/MD: (GALE) (test code = TESTED AT [facility] [id number]) [facility], [id number]: Sustainability Specialist/Techni salma ID = [id number] for VIOLA BARRETT Hrlxeunbpdrsa3419-31-14 09:10:53 Test Item Value Reference Range Interpretation Comments Procalcitonin (test code = 0.06 ng/mL <0.05 H 14152-1) BANDAR (test code = BANDAR) SEPSIS RISK (ng/mL)Low: 0.05-0.50Intermedia te: 0.51-2.00High: >=2.01 Lab Interpretation (test Abnormal code = 39353-4) [facility] MonicaCcdkevPoqroueoksgat2498-45-26 09:10:53 Test Item Value Reference Range Interpretation Comments Procalcitonin (test code = 0.06 ng/mL <0.05 H 26120-1) BANDAR (test code = BANDAR) SEPSIS RISK (ng/mL)Low: 0.05-0.50Intermedia te: 0.51-2.00High: >=2.01 Lab Interpretation (test Abnormal code = 16234-3) [facility] [id number] 09:10:53 Test Item Value Reference Range Interpretation Comments PROCALCITONIN (BEAKER) (test code 0.06 ng/mL <0.05 H = 3036) SEPSIS RISK (ng/mL)Low: 0.05-0.50Intermediate: 0.51-2.00High: >=2.01Lactic acid, [id number] 08:38:53 Test Item Value Reference Range Interpretation Comments Lactate, Venous (test code 1.07 mmol/L 0.50-2.20 = 2872) BANDAR (test code = BANDAR) Sustainability Specialist ID - JAKE M Lab Interpretation (test Normal code = 48765-0) [facility] MonicaLactic acid, [id number] 08:38:53 Test Item Value Reference Range Interpretation Comments Lactate, Venous (test code 1.07 mmol/L 0.50-2.20 = 2872) BANDAR (test code = BANDAR) Sustainability Specialist ID - JAKE M Lab Interpretation (test Normal code = 06912-5) [facility] MonicaLACTIC ACID, [id number] 08:38:53 Test Item Value Reference Range Interpretation Comments LACTATE BLOOD VENOUS (2) (BEAKER) 1.07 mmol/L 0.50-2.20 (test code = 2872) Sustainability Specialist ID - JAKE COOKUTUM CULTURE + GRAM [id number] 08:35:07 Test Item Value Reference Interpretation Comments Range CULTURE (BEAKER) METHICILLIN A 3+ Methicil antionette (test code = 1095) RESISTANT resistant STAPHYLOCOCCUS Staphylococcu s AUREUS aureus Clindamycin (test R code = 10) Erythromycin (test R code = 4) Linezolid (test code S = 40) Nitrofurantoin (test S code = 23) Oxacillin (test code R = 14) Rifampin (test code = S 43) Tetracycline (test R code = 2) Trimethoprim + S Sulfamethoxazole (test code = 47) Vancomycin (test code S = 13) CULTURE (BEAKER) METHICILLIN A 3+ Methicil antionette (test code = 1095) RESISTANT resistant STAPHYLOCOCCUS Staphylococcu s AUREUS aureusof a [place] type Clindamycin (test R code = 10) Erythromycin (test R code = 4) Linezolid (test code S = 40) Nitrofurantoin (test S code = 23) Oxacillin (test code R = 14) Rifampin (test code = S 43) Tetracycline (test R code = 2) Trimethoprim + S Sulfamethoxazole (test code = 47) Vancomycin (test code S = 13) GRAM STAIN RESULT 2+ WBCs (BEAKER) (test code = 1123) GRAM STAIN RESULT >25 epithelial (BEAKER) (test code = cells 225551) GRAM STAIN RESULT <1+ gram positive (BEAKER) (test code = rods 830734) GRAM STAIN RESULT 1+ gram positive (BEAKER) (test code = cocci in clusters 030210) GRAM STAIN RESULT <1+ yeast with (BEAKER) (test code = pseudohyphae 298950) GRAM STAIN RESULT <1+ gram positive (BEAKER) (test code = cocci in pairs 345930) No Normal respiratory ignacia presentRAD, CHEST, 1 VIEW, NON [id number] 07:54:00Reason for exam:->intubatedShould this be performed at the bedside?->YesCON[facility] : 1950 Sex: MFINAL REPORT RAD, CHEST, 1 VIEW, NON DEPT INDICATION: intubated COMPARISON: Priorday's exam FINDINGS: Portable frontal view of the chest. IMPRESSION: Support Lines: Overlying leads/monitors. Feeding tube descends below the diaphragm. Lungs and pleura: Hazy airspace disease within the right upper lobe is unchanged. Mild interstitial thickening elsewhere within the parenchyma, slightly decreased. No significant pneumothorax. Heart and mediastinum: Stable contours. Additional findings: None. Signed: Luke Parikh MDReport Verified Date/Time: 07/08/2021 07:54:07 POCT-GLUCOSE [id number] 05:15:15 Test Item Value Reference Range Interpretation Comments POC-GLUCOSE METER 180 mg/dL 70-110 H : TESTED A T [facility] 6720 (BEAKER) (test code = [place], 1538) [address]14[address]: Sustainability Specialist/Techni salma ID = [id number] for Sarah albarran (contract), Aníbal ae HEPATIC FUNCTION [id number] 04:27:32 Test Item Value Reference Range Interpretation Comments TOTAL PROTEIN (BEAKER) (test code = 5.5 gm/dL 6.0-8.3 L 770) ALBUMIN (BEAKER) (test code = 1145) 2.6 g/dL 3.5-5.0 L BILIRUBIN TOTAL (BEAKER) (test code 0.5 mg/dL 0.2-1.2 = 377) BILIRUBIN DIRECT (BEAKER) (test 0.2 mg/dL 0.1-0.5 code = 706) ALKALINE PHOSPHATASE (BEAKER) (test 56 U/L 40-150 code = 346) AST (SGOT) (BEAKER) (test code = 25 U/L 5-34 353) ALT (SGPT) (BEAKER) (test code = 37 U/L 6-55 347) Sustainability Specialist ID - [id number] 04:27:31 Test Item Value Reference Range Interpretation Comments MAGNESIUM (BEAKER) (test code = 2.2 mg/dL 1.6-2.6 627) Sustainability Specialist ID - ADMINBASIC METABOLIC [id number] 04:27:30 Test Item Value Reference Range Interpretation Comments SODIUM (BEAKER) 142 meq/L 136-145 (test code = 381) POTASSIUM (BEAKER) 4.4 meq/L 3.5-5.1 (test code = 379) CHLORIDE (BEAKER) 109 meq/L 98-107 H (test code = 382) CO2 (BEAKER) (test 26 meq/L 22-29 code = 355) BLOOD UREA NITROGEN 37 mg/dL 7-21 H (BEAKER) (test code = 354) CREATININE (BEAKER) 0.90 mg/dL 0.57-1.25 (test code = 358) GLUCOSE RANDOM 191 mg/dL 70-105 H (BEAKER) (test code = 652) CALCIUM (BEAKER) 9.0 mg/dL 8.4-10.2 (test code = 697) EGFR (BEAKER) (test 83 mL/min/1.73 ESTIMA OZIEL GFR IS code = 1092) sq m NOT ACCURATE CREATININE CLEARANCE IN PREDICTING GLOMERULAR FILTRATION RATE . ESTIMATED GFR I S NOT APPLICABLE FOR DIALYSIS PATIEN TS. Sustainability Specialist ID - ADMINBLOOD GAS, [id number] 03:31:57 Test Item Value Reference Range Interpretation Comments PH VENOUS (BEAKER) (test code = 7.37 7.32-7.42 701) PCO2 VENOUS (BEAKER) (test code = 53 mm Hg 41-51 H 755) PO2 VENOUS (BEAKER) (test code = 44 mm Hg 25-40 H 702) O2 SATURATION VENOUS (BEAKER) 79.3 % 40.0-70.0 H (test code = 703) HCO3 VENOUS (BEAKER) (test code = 30 mmol/L 21-29 H 705) BASE EXCESS VENOUS (BEAKER) (test 3.7 mmol/L -2.0-3.0 H code = 704) PATIENT TEMPERATURE (BEAKER) (test 36.5 code = 1818) FIO2 (BEAKER) (test code = 1819) 32.0 [id number] 03:28:57 Test Item Value Reference Range Interpretation Comments PTT (test code = 63.9 See_Comment H [Automated message] 90825-5) The system Mobi generated this result transmitted ref erence range: 22.5 - 3 6.0 seconds. The reference range was not used to int erpret this result as normal/abnormal . Lab Interpretation (test Abnormal code = 56035-4) [facility] MonicaaPTT2022-03-05 03:28:57 Test Item Value Reference Range Interpretation Comments PTT (test code = 63.9 See_Comment H [Automated message] 35607-6) The system Mobi generated this result transmitted ref erence range: 22.5 - 3 6.0 seconds. The reference range was not used to int erpret this result as normal/abnormal . Lab Interpretation (test Abnormal code = 72502-1) [facility] MonicaAPTT2022-03-05 03:28:57 Test Item Value Reference Range Interpretation Comments PARTIAL THROMBOPLASTIN TIME 63.9 seconds 22.5-36.0 H (BEAKER) (test code = 760) CBC W/PLT COUNT & AUTO [id number] 03:14:34 Test Item Value Reference Range Interpretation Comments WHITE BLOOD CELL COUNT (BEAKER) 8.1 K/ L 3.5-10.5 (test code = 775) RED BLOOD CELL COUNT (BEAKER) 2.58 M/ L 4.63-6.08 L (test code = 761) HEMOGLOBIN (BEAKER) (test code = 7.3 GM/DL 13.7-17.5 L 410) HEMATOCRIT (BEAKER) (test code = 25.7 % 40.1-51.0 L 411) MEAN CORPUSCULAR VOLUME (BEAKER) 99.6 fL 79.0-92.2 H (test code = 753) MEAN CORPUSCULAR HEMOGLOBIN 28.3 pg 25.7-32.2 (BEAKER) (test code = 751) MEAN CORPUSCULAR HEMOGLOBIN CONC 28.4 GM/DL 32.3-36.5 L (BEAKER) (test code = 752) RED CELL DISTRIBUTION WIDTH 19.3 % 11.6-14.4 H (BEAKER) (test code = 412) PLATELET COUNT (BEAKER) (test 179 K/CU MM 150-450 code = 756) MEAN PLATELET VOLUME (BEAKER) 11.2 fL 9.4-12.4 (test code = 754) NUCLEATED RED BLOOD CELLS 0 /100 WBC 0-0 (BEAKER) (test code = 413) NEUTROPHILS RELATIVE PERCENT 74 % (BEAKER) (test code = 429) LYMPHOCYTES RELATIVE PERCENT 16 % (BEAKER) (test code = 430) MONOCYTES RELATIVE PERCENT 7 % (BEAKER) (test code = 431) EOSINOPHILS RELATIVE PERCENT 2 % (BEAKER) (test code = 432) BASOPHILS RELATIVE PERCENT 0 % (BEAKER) (test code = 437) NEUTROPHILS ABSOLUTE COUNT 6.02 K/ L 1.78-5.38 H (BEAKER) (test code = 670) LYMPHOCYTES ABSOLUTE COUNT 1.32 K/ L 1.32-3.57 (BEAKER) (test code = 414) MONOCYTES ABSOLUTE COUNT (BEAKER) 0.54 K/ L 0.30-0.82 (test code = 415) EOSINOPHILS ABSOLUTE COUNT 0.14 K/ L 0.04-0.54 (BEAKER) (test code = 416) BASOPHILS ABSOLUTE COUNT (BEAKER) 0.03 K/ L 0.01-0.08 (test code = 417) IMMATURE GRANULOCYTES-RELATIVE 1 % 0-1 PERCENT (BEAKER) (test code = 1731) POCT-GLUCOSE [id number] 23:27:59 Test Item Value Reference Range Interpretation Comments POC-GLUCOSE METER 200 mg/dL 70-110 H : TESTED A T [facility] 6720 (BEAKER) (test code = [facility], 1538) 69[address]: Sustainability Specialist/Techni salma ID = [id number] for Sarah albarran (contract)Aníbal ae POCT-GLUCOSE [id number] 21:20:38 Test Item Value Reference Range Interpretation Comments POC-GLUCOSE METER 229 mg/dL 70-110 H : TESTED A T [facility] 6720 (BEAKER) (test code = [facility], 1538) [address]88[address]: Sustainability Specialist/Techni salma ID = [id number] for Franchesca Reyna POCT-GLUCOSE [id number] 16:34:29 Test Item Value Reference Range Interpretation Comments POC-GLUCOSE METER 134 mg/dL 70-110 H : TESTED A T [facility] 6720 (BEAKER) (test code = [facility], 1538) 89018: Sustainability Specialist/Techni salma ID = [id number] for ASHLEY HERNADEZRoland ILANABANDAR CT, SINUS, WITH IV [id number] 14:42:00Unlisted Reason for Exam - Click Yes and Enter Reason Below->No [facility] : 1950 Sex: MFINAL REPORT CT, SINUS, WITH IV CONTRAST CLINICAL INDICATION: Sinusitis, acute, uncomplicated COMPARISON: None TECHNIQUE: Noncontrast CT of the maxillofacial area. Coronal and sagittal reconstructions were performed. DOSE REDUCTION: Dose modulation, iterative reconstruction, and/or weight-based adjustment of the mA/kV was utilized to reduce the radiation dose to as low as reasonably achievable. FINDINGS: Trace minimal mucosal thickening of the frontal, ethmoid and maxillary cavities. Layering fluid within the left sphenoid sinus. Acute left sphenoid sinusitis cannot be excluded by imaging. Right nasogastric tube. Signed: Luke Parikh MDReport Verified Date/Time: 07/07/2021 14:42:25 EEG W VID 12-26 HR CONTINUOUS MONITORING (VEEG)2021-07-07 13:47:00Reason for exam:->seizure [facility] : 1950 [facility]: Olivia Monroy EE0 DATE(s) OF EE07/06/21-07/07/21 DATE OF REPORT: 07/07/21 Start time: 3:18 PM on 07/06/21 Stop time: 12:59 PM on 07/07/21 ICD-10: R41.82 CPT Code: 67121 HISTORY: 70 yo man with HTN, DM, CHF, and CAD s/p CABG who was admitted to OSH for wide complex tachycardia requiring cardioversion and acute confusion. MEDICATIONS EDIS T COULD AFFECT EEG: no anti-seizure medications. TECHNICAL SUMMARY: [facility] recorded with 32 input channels reviewed with bipolar and referential montages using the modified combinatorial system nomenclature. DESCRIPTION OF RECORD: During the maximally alert state, no s ustained posterior dominant rhythm was seen. The background predominantly consisted of continuous, generalized, moderated voltage 5-7 Hz theta admixed with 2-3 Hz polymorphic delta activity. Occasionalgeneralized board-based sharps with triphasic morphology were seen. The background activity was reactive to external stimulation and showed spontaneous variability. No organized sleep patterns were seen. VIDEO EVENTS: None. HYPERVENLITATION: Hyperventilation was not performed. PHOTIC STIMULATION: Photic stimulation was done from 1-33 Hz. Photic driving was not observed. There were no photoparoxysmal responses seen. ECG FINDINGS: Regular Sinus Rhythm. IMPRESSION: Abnormal video EEG in Obtunded State due to: - Occasional generalized broad-based sharps with triphasic morphology - Diffuse background slowing and disorganization, theta/delta range, reactive CLINICAL CORRELATION: This study is indicativeof a moderate degree of encephalopathy that is nonspecific in etiology. The recorded generalized broad- based sharps with triphasic morphology may indicative acute diffuse cortical irritability and can be seen in the setting of toxic-metabolic encephalopathy. No clinical events or electrographic seizures were recorded. Mykel Mcleod MD, PhD Clinical Neurophysiology/Epilepsy Attending TSH/FREE T4 IF [id number] 13:24:33 Test Item Value Reference Range Interpretation Comments THYROID STIMULATING HORMONE 1.072 uIU/mL 0.350-4.940 (BEAKER) (test code = 772) Sustainability Specialist ID - EMILIO [id number] 13:10:31 Test Item Value Reference Range Interpretation Comments PARTIAL THROMBOPLASTIN TIME 64.8 seconds 22.5-36.0 H (BEAKER) (test code = 760) BASIC METABOLIC [id number] 13:04:52 Test Item Value Reference Range Interpretation Comments SODIUM (BEAKER) 146 meq/L 136-145 H (test code = 381) POTASSIUM (BEAKER) 4.5 meq/L 3.5-5.1 (test code = 379) CHLORIDE (BEAKER) 113 meq/L 98-107 H (test code = 382) CO2 (BEAKER) (test 31 meq/L 22-29 H code = 355) BLOOD UREA NITROGEN 41 mg/dL 7-21 H (BEAKER) (test code = 354) CREATININE (BEAKER) 0.93 mg/dL 0.57-1.25 (test code = 358) GLUCOSE RANDOM 156 mg/dL 70-105 H ([place]) (test code = 652) CALCIUM (AKER) 9.0 mg/dL 8.4-10.2 (test code = 697) EGFR ([facility]) (test 80 mL/min/1.73 ESTIMA OZIEL GFR IS code = 1092) sq m NOT ACCURATE CREATININE CLEARANCE IN PREDICTING GLOMERULAR FILTRATION RATE . ESTIMATED GFR I S NOT APPLICABLE FOR DIALYSIS PATIEN TS. Sustainability Specialist ID - AAHAMIDHEMOGLOBIN [id number] 11:45:18 Test Item Value Reference Range Interpretation Comments HEMOGLOBIN A1C 6.8 % See_Comment H [Automated m essage] ELECTROPHORESIS ([facility]) The system which (test code = 3811) generated this result transmitted ref erence range: <=5.6%. The reference range was not used to int erpret this result as normal/abnormal . "The A1c is measured using a NGSP-certified method. HbA1c value equal to or greater than 6.5% as thediagnosis cutoff for diabetes. An HbA1c value of 5.7- 6.4% indicates increased risk for diabetes (prediabetes)."Sustainability Specialist ID - ADMPOCT- GLUCOSE [id number] 11:20:35 Test Item Value Reference Range Interpretation Comments POC-GLUCOSE METER 173 mg/dL 70-110 H : TESTED A T [facility] 6720 (GVISP 1) (test code = [facility], 1538) 71381: Sustainability Specialist/Techni salma ID = [id number] for IB RAHIM, S[place]ALEM POCT-GLUCOSE [id number] 07:34:43 Test Item Value Reference Range Interpretation Comments POC-GLUCOSE METER 187 mg/dL 70-110 H : TESTED A T [facility] 6720 (GVISP 1) (test code = [facility], 1538) 91703: Sustainability Specialist/Techni salma ID = [id number] for IB RAHIM, [place] POCT-GLUCOSE [id number] 06:06:43 Test Item Value Reference Range Interpretation Comments POC-GLUCOSE METER 199 mg/dL 70-110 H : TESTED A T [facility] 6720 (GVISP 1) (test code [facility], = 1538) 96171: Sustainability Specialist/Techni salma ID = [id number] for SUGU , SHEENAMOL RAD, CHEST, 1 VIEW, NON [id number] 04:40:00Reason for exam:- >intubatedShould this be performed at the bedside?->Yes [facility] 1950 Sex: MFINAL REPORT RAD, CHEST, 1 VIEW, NON DEPT INDICATION: intubated COMPARISON: Priorday's exam FINDINGS: Portable frontal view of the chest. IMPRESSION: Support Lines: Stable. Lungs and pleura: No significant change in bilateral hazy interstitial and airspace opacities. No new consolidation. No pneumothorax. Heart and mediastinum: Stable contours. Additional findings: None. Signed: [facility]br[facility] Verified Date/Time: 07/07/2021 04:40:27 BLOOD GAS, [id number] 04:12:20 Test Item Value Reference Range Interpretation Comments PH VENOUS (BEAKER) (test code = 7.36 7.32-7.42 701) PCO2 VENOUS (BEAKER) (test code = 56 mm Hg 41-51 H 755) PO2 VENOUS (BEAKER) (test code = 53 mm Hg 25-40 H 702) O2 SATURATION VENOUS (BEAKER) 84.9 % 40.0-70.0 H (test code = 703) HCO3 VENOUS (BEAKER) (test code = 31 mmol/L 21-29 H 705) BASE EXCESS VENOUS (BEAKER) (test 4.6 mmol/L -2.0-3.0 H code = 704) PATIENT TEMPERATURE (BEAKER) (test 37.4 code = 1818) FIO2 (BEAKER) (test code = 1819) 44.0 [id number] 03:53:27 Test Item Value Reference Range Interpretation Comments MAGNESIUM (BEAKER) (test code = 2.1 mg/dL 1.6-2.6 627) Sustainability Specialist ID Cory KRISHNAMURTHY WBASIC METABOLIC [id number] 03:53:26 Test Item Value Reference Range Interpretation Comments SODIUM (BEAKER) 146 meq/L 136-145 H (test code = 381) POTASSIUM (BEAKER) 4.3 meq/L 3.5-5.1 (test code = 379) CHLORIDE (BEAKER) 112 meq/L 98-107 H (test code = 382) CO2 (BEAKER) (test 31 meq/L 22-29 H code = 355) BLOOD UREA NITROGEN 44 mg/dL 7-21 H (BEAKER) (test code = 354) CREATININE (BEAKER) 1.02 mg/dL 0.57-1.25 (test code = 358) GLUCOSE RANDOM 204 mg/dL 70-105 H (BEAKER) (test code = 652) CALCIUM (BEAKER) 9.0 mg/dL 8.4-10.2 (test code = 697) EGFR (BEAKER) (test 72 mL/min/1.73 ESTIMA OZIEL GFR IS code = 1092) sq m NOT ACCURATE CREATININE CLEARANCE IN PREDICTING GLOMERULAR FILTRATION RATE . ESTIMATED GFR I S NOT APPLICABLE FOR DIALYSIS PATIEN TS. Sustainability Specialist ID Cory KRISHNAMURTHY [id number] 03:49:14 Test Item Value Reference Range Interpretation Comments PARTIAL THROMBOPLASTIN TIME 55.9 seconds 22.5-36.0 H (BEAKER) (test code = 760) CBC W/PLT COUNT & AUTO [id number] 03:29:05 Test Item Value Reference Range Interpretation Comments WHITE BLOOD CELL COUNT (BEAKER) 7.5 K/ L 3.5-10.5 (test code = 775) RED BLOOD CELL COUNT (BEAKER) 2.54 M/ L 4.63-6.08 L (test code = 761) HEMOGLOBIN (BEAKER) (test code = 7.2 GM/DL 13.7-17.5 L 410) HEMATOCRIT (BEAKER) (test code = 25.3 % 40.1-51.0 L 411) MEAN CORPUSCULAR VOLUME (BEAKER) 99.6 fL 79.0-92.2 H (test code = 753) MEAN CORPUSCULAR HEMOGLOBIN 28.3 pg 25.7-32.2 (BEAKER) (test code = 751) MEAN CORPUSCULAR HEMOGLOBIN CONC 28.5 GM/DL 32.3-36.5 L (BEAKER) (test code = 752) RED CELL DISTRIBUTION WIDTH 19.7 % 11.6-14.4 H (BEAKER) (test code = 412) PLATELET COUNT (BEAKER) (test 174 K/CU MM 150-450 code = 756) MEAN PLATELET VOLUME (BEAKER) 10.7 fL 9.4-12.4 (test code = 754) NUCLEATED RED BLOOD CELLS 0 /100 WBC 0-0 (BEAKER) (test code = 413) NEUTROPHILS RELATIVE PERCENT 69 % (BEAKER) (test code = 429) LYMPHOCYTES RELATIVE PERCENT 20 % (BEAKER) (test code = 430) MONOCYTES RELATIVE PERCENT 9 % (BEAKER) (test code = 431) EOSINOPHILS RELATIVE PERCENT 2 % (BEAKER) (test code = 432) BASOPHILS RELATIVE PERCENT 0 % (BEAKER) (test code = 437) NEUTROPHILS ABSOLUTE COUNT 5.12 K/ L 1.78-5.38 (BEAKER) (test code = 670) LYMPHOCYTES ABSOLUTE COUNT 1.47 K/ L 1.32-3.57 (BEAKER) (test code = 414) MONOCYTES ABSOLUTE COUNT (BEAKER) 0.68 K/ L 0.30-0.82 (test code = 415) EOSINOPHILS ABSOLUTE COUNT 0.12 K/ L 0.04-0.54 (BEAKER) (test code = 416) BASOPHILS ABSOLUTE COUNT (BEAKER) 0.02 K/ L 0.01-0.08 (test code = 417) IMMATURE GRANULOCYTES-RELATIVE 1 % 0-1 PERCENT (BEAKER) (test code = 2801) [id number] 02:46:19 Test Item Value Reference Range Interpretation Comments PARTIAL THROMBOPLASTIN TIME > seconds 22.5-36.0 HH (BEAKER) (test code = 760) POCT-GLUCOSE [id number] 02:19:48 Test Item Value Reference Range Interpretation Comments POC-GLUCOSE METER 185 mg/dL 70-110 H : TESTED A T [facility] 6720 (BEAKER) (test code [facility], = 1538) 49268: Sustainability Specialist/Techni salma ID = [id number] for SUGU , TREVONENAMOL [id number] 19:14:23 Test Item Value Reference Range Interpretation Comments PARTIAL THROMBOPLASTIN TIME 87.8 seconds 22.5-36.0 H (BEAKER) (test code = 760) BASIC METABOLIC [id number] 18:37:48 Test Item Value Reference Range Interpretation Comments SODIUM (BEAKER) 146 meq/L 136-145 H (test code = 381) POTASSIUM (BEAKER) 4.4 meq/L 3.5-5.1 (test code = 379) CHLORIDE (BEAKER) 111 meq/L 98-107 H (test code = 382) CO2 (BEAKER) (test 30 meq/L 22-29 H code = 355) BLOOD UREA NITROGEN 45 mg/dL 7-21 H (BEAKER) (test code = 354) CREATININE (BEAKER) 0.98 mg/dL 0.57-1.25 (test code = 358) GLUCOSE RANDOM 198 mg/dL 70-105 H (BEAKER) (test code = 652) CALCIUM (BEAKER) 9.0 mg/dL 8.4-10.2 (test code = 697) EGFR (BEAKER) (test 75 mL/min/1.73 ESTIMA OZIEL GFR IS code = 1092) sq m NOT ACCURATE CREATININE CLEARANCE IN PREDICTING GLOMERULAR FILTRATION RATE . ESTIMATED GFR I S NOT APPLICABLE FOR DIALYSIS PATIEN TS. Sustainability Specialist ID - DBPOCT-GLUCOSE [id number] 18:01:50 Test Item Value Reference Range Interpretation Comments POC-GLUCOSE METER 191 mg/dL 70-110 H : TESTED A T [facility] 6720 (BEAKER) (test code = [facility], 1538) 09787: Sustainability Specialist/Techni salma ID = [id number] for DE NNIS, NAZARIO RAD, CHEST, 1 VIEW, NON [id number] 17:53:00Reason for exam:- >hypoxemiaShould this be performed at the bedside?->Yes [facility] : 1950 Sex: MFINAL REPORT TECHNIQUE: Frontal view of the chest. INDICATION: hypoxemia COMPARISON: 07/06/2021. FINDINGS: LINES/TUBES: Feeding tube is present with the distal tip not imaged.. LUNGS: Mild improvement of the bibasilar pulmonary opacities.. No new consolidation.. PLEURA: No pneumothorax or significant pleural effusion. HEART AND MEDIASTINUM: The cardiomediastinal silhouette is stable status post median sternotomy. SOFT TISSUES AND BONES: Unremarkable. IMPRESSION:Mild improvement of the bibasilar pulmonary opacities.. Signed: Jocelyn Gonsalesepgerardo Verified Date/Time: 07/06/2021 17:53:12 Reading Location: [address] Reading Room LACTIC ACID, [id number] 16:23:18 Test Item Value Reference Range Interpretation Comments LACTATE BLOOD VENOUS (2) (BEAKER) 0.78 mmol/L 0.50-2.20 (test code = 2872) Sustainability Specialist ID - DBBLOOD GAS, [id number] 16:04:18 Test Item Value Reference Range Interpretation Comments PH VENOUS (BEAKER) (test code = 7.42 7.32-7.42 701) PCO2 VENOUS (BEAKER) (test code = 49 mm Hg 41-51 755) PO2 VENOUS (BEAKER) (test code = 43 mm Hg 25-40 H 702) O2 SATURATION VENOUS (BEAKER) 79.2 % 40.0-70.0 H (test code = 703) HCO3 VENOUS (BEAKER) (test code = 31 mmol/L 21-29 H 705) BASE EXCESS VENOUS (BEAKER) (test 5.9 mmol/L -2.0-3.0 H code = 704) PATIENT TEMPERATURE (GALE) (test 37.0 code = 1818) POCT-GLUCOSE [id number] 12:40:11 Test Item Value Reference Range Interpretation Comments POC-GLUCOSE METER 149 mg/dL 70-110 H : TESTED A Catherine [facility] 6720 (BESTU) (test code = [place], 1538) [address]: Sustainability Specialist/Techni salma ID = [id number] for NAZARIO LOW [id number] 12:34:35 Test Item Value Reference Range Interpretation Comments PARTIAL THROMBOPLASTIN TIME 83.7 seconds 22.5-36.0 H (BEAKER) (test code = 760) RAD, CHEST, 1 VIEW, NON [id number] 08:17:00Reason for exam:- >intubatedShould this be performed at the bedside?->Yes [facility] : 1950 Sex: MFINAL REPORT Exam: RAD, CHEST, 1 VIEW, NON DEPTDate: 07/06/2021 8:14 AM Indication:intubatedComparison: 07/05/2021 FINDINGS: The inferior most aspect of bilateral costophrenic angles arecollimated out of view. Lines/Tubes/Devices: Dobbhoff tube in place seen coursing below the diaphragm with the distal tip status post sternotomy Lungs/pleura:Borderline lung volumes. Interval worsening of diffuse interstitial markings. Bibasilar airspace opacities. No significant pleural effusion. No pneumothorax. Heart/Mediastinum:Unchanged Bones/Soft Tissues: No acute osseous abnormality. Upper abdomen: Unremarkable. IMPRESSION:Interval worsening of diffuse interstitial markings, worsening interstitial edema. Consider infectious process in the appropriate clinical setting.Bibasilar atelectasis. Signed: Kelvin Sosa Verified Date/Time: 07/06/2021 08:17:28 Reading Location: [facility] Reading Room HEPATIC FUNCTION [id number] 06:39:57 Test Item Value Reference Range Interpretation Comments TOTAL PROTEIN (BEAKER) (test code = 5.5 gm/dL 6.0-8.3 L 770) ALBUMIN (BEAKER) (test code = 1145) 2.5 g/dL 3.5-5.0 L BILIRUBIN TOTAL (BEAKER) (test code 0.5 mg/dL 0.2-1.2 = 377) BILIRUBIN DIRECT (BEAKER) (test 0.3 mg/dL 0.1-0.5 code = 706) ALKALINE PHOSPHATASE (BEAKER) (test 69 U/L 40-150 code = 346) AST (SGOT) (BEAKER) (test code = 41 U/L 5-34 H 353) ALT (SGPT) (BEAKER) (test code = 46 U/L 6-55 347) Sustainability Specialist ID - AMY [id number] 06:39:56 Test Item Value Reference Range Interpretation Comments MAGNESIUM (BEAKER) (test code = 2.2 mg/dL 1.6-2.6 627) Sustainability Specialist ID - AMY GBASIC METABOLIC [id number] 06:39:55 Test Item Value Reference Range Interpretation Comments SODIUM (BEAKER) 149 meq/L 136-145 H (test code = 381) POTASSIUM (BEAKER) 4.6 meq/L 3.5-5.1 (test code = 379) CHLORIDE (BEAKER) 113 meq/L 98-107 H (test code = 382) CO2 (BEAKER) (test 30 meq/L 22-29 H code = 355) BLOOD UREA NITROGEN 47 mg/dL 7-21 H (BEAKER) (test code = 354) CREATININE (BEAKER) 1.02 mg/dL 0.57-1.25 (test code = 358) GLUCOSE RANDOM 141 mg/dL 70-105 H (BEAKER) (test code = 652) CALCIUM (BEAKER) 9.1 mg/dL 8.4-10.2 (test code = 697) EGFR (BEAKER) (test 72 mL/min/1.73 ESTIMA OZIEL GFR IS code = 1092) sq m NOT ACCURATE CREATININE CLEARANCE IN PREDICTING GLOMERULAR FILTRATION RATE . ESTIMATED GFR I S NOT APPLICABLE FOR DIALYSIS PATIEN TS. Sustainability Specialist ID - AMY [id number] 06:03:39 Test Item Value Reference Range Interpretation Comments PARTIAL THROMBOPLASTIN TIME 56.0 seconds 22.5-36.0 H (BEAKER) (test code = 760) POCT-GLUCOSE [id number] 05:50:56 Test Item Value Reference Range Interpretation Comments POC-GLUCOSE METER 137 mg/dL 70-110 H : TESTED A T [facility] 6720 (BEAKER) (test code = [place], 1538) [address]: Sustainability Specialist/Techni salma ID = [id number] for TISH FOY CBC W/PLT COUNT & AUTO [id number] 05:49:52 Test Item Value Reference Range Interpretation Comments WHITE BLOOD CELL COUNT (BEAKER) 7.6 K/ L 3.5-10.5 (test code = 775) RED BLOOD CELL COUNT (BEAKER) 2.63 M/ L 4.63-6.08 L (test code = 761) HEMOGLOBIN (BEAKER) (test code = 7.5 GM/DL 13.7-17.5 L 410) HEMATOCRIT (BEAKER) (test code = 25.9 % 40.1-51.0 L 411) MEAN CORPUSCULAR VOLUME (BEAKER) 98.5 fL 79.0-92.2 H (test code = 753) MEAN CORPUSCULAR HEMOGLOBIN 28.5 pg 25.7-32.2 (BEAKER) (test code = 751) MEAN CORPUSCULAR HEMOGLOBIN CONC 29.0 GM/DL 32.3-36.5 L (BEAKER) (test code = 752) RED CELL DISTRIBUTION WIDTH 20.8 % 11.6-14.4 H (BEAKER) (test code = 412) PLATELET COUNT (BEAKER) (test 170 K/CU MM 150-450 code = 756) MEAN PLATELET VOLUME (BEAKER) 11.4 fL 9.4-12.4 (test code = 754) NUCLEATED RED BLOOD CELLS 0 /100 WBC 0-0 (BEAKER) (test code = 413) NEUTROPHILS RELATIVE PERCENT 68 % (BEAKER) (test code = 429) LYMPHOCYTES RELATIVE PERCENT 20 % (BEAKER) (test code = 430) MONOCYTES RELATIVE PERCENT 10 % (BEAKER) (test code = 431) EOSINOPHILS RELATIVE PERCENT 1 % (BEAKER) (test code = 432) BASOPHILS RELATIVE PERCENT 0 % (BEAKER) (test code = 437) NEUTROPHILS ABSOLUTE COUNT 5.10 K/ L 1.78-5.38 (BEAKER) (test code = 670) LYMPHOCYTES ABSOLUTE COUNT 1.54 K/ L 1.32-3.57 (BEAKER) (test code = 414) MONOCYTES ABSOLUTE COUNT (BEAKER) 0.75 K/ L 0.30-0.82 (test code = 415) EOSINOPHILS ABSOLUTE COUNT 0.06 K/ L 0.04-0.54 (BEAKER) (test code = 416) BASOPHILS ABSOLUTE COUNT (BEAKER) 0.02 K/ L 0.01-0.08 (test code = 417) IMMATURE GRANULOCYTES-RELATIVE 1 % 0-1 PERCENT (BEAKER) (test code = 2801) POCT-GLUCOSE [id number] 23:45:37 Test Item Value Reference Range Interpretation Comments POC-GLUCOSE METER 127 mg/dL 70-110 H : TESTED A T [facility] 6720 (BEAKER) (test code = [facility], 153) 17289: Sustainability Specialist/Techni salma ID = [id number] for TISH FOY POCT-GLUCOSE [id number] 17:59:18 Test Item Value Reference Range Interpretation Comments POC-GLUCOSE METER 118 mg/dL 70-110 H : TESTED A T [facility] 6720 (BEAKER) (test code = [facility], 1538) 10005: Sustainability Specialist/Techni salma ID = [id number] for MILE MONTEMAYOR POCT-GLUCOSE [id number] 11:01:13 Test Item Value Reference Range Interpretation Comments POC-GLUCOSE METER 156 mg/dL 70-110 H : TESTED A T [facility] 6720 (BEAKER) (test code = [facility], 1538) 45121: Sustainability Specialist/Techni salma ID = [id number] for IB RAHIM, [place] BLOOD [id number] 09:00:45 Test Item Value Reference Range Interpretation Comments CULTURE (BEAKER) (test No growth in 5 days code = 1095) POCT-GLUCOSE [id number] 08:51:54 Test Item Value Reference Range Interpretation Comments POC-GLUCOSE METER 139 mg/dL 70-110 H : TESTED A T [facility] 6720 (BEAKER) (test code = [place], 1538) [address]: Sustainability Specialist/Techni salma ID = [id number] for IB JAN JASSO RAD, CHEST, 1 VIEW, NON [id number] 08:43:00Reason for exam:- >intubatedShould this be performed at the bedside?->Yes [facility] : 1950 Sex: MFINAL REPORT Exam: RAD, CHEST, 1 VIEW, NON DEPTDate: 07/05/2021 8:39 AM Indication:intubatedComparison: 07/04/2021 FINDINGS: Lines/Tubes/Devices: Dobbhoff tube in place seen looping within the gastric lumen distal tip projecting near the GE junction. Status post sternotomy. Lungs/pleura:Borderline lung volumes. Interstitial prominence. Bibasilar airspace opacities. Scattered patchy bila teral airspace opacities. No pneumothorax. No significant effusions. Heart/Mediastinum:Unchanged Bones/Soft Tissues: No acute osseous abnormality. Upper abdomen: Unremarkable. IMPRESSION:Dobbhoff tube as above.Borderline lung volumes.Persistent interstitial prominence, interstitial edema.Bibasilar airs pace opacities, likely atelectasis.Scattered patchy bilateral airspace opacities may represent edemaversus multifocal infectious process. Signed: Kelvin Sosa MDReport Verified Date/Time: 208:43:47 Reading Location: [facility] Radiology Reading Room [id number] 07:15:30 Test Item Value Reference Range Interpretation Comments PARTIAL THROMBOPLASTIN TIME 66.6 seconds 22.5-36.0 H (BEAKER) (test code = 760) [id number] 04:44:24 Test Item Value Reference Range Interpretation Comments MAGNESIUM (BEAKER) (test code = 2.1 mg/dL 1.6-2.6 627) Sustainability Specialist ID - JAKE MBASIC METABOLIC [id number] 04:44:23 Test Item Value Reference Range Interpretation Comments SODIUM (BEAKER) 146 meq/L 136-145 H (test code = 381) POTASSIUM (BEAKER) 4.3 meq/L 3.5-5.1 (test code = 379) CHLORIDE (BEAKER) 109 meq/L 98-107 H (test code = 382) CO2 (BEAKER) (test 31 meq/L 22-29 H code = 355) BLOOD UREA NITROGEN 54 mg/dL 7-21 H (BEAKER) (test code = 354) CREATININE (BEAKER) 1.00 mg/dL 0.57-1.25 (test code = 358) GLUCOSE RANDOM 160 mg/dL 70-105 H (BEAKER) (test code = 652) CALCIUM (BEAKER) 9.3 mg/dL 8.4-10.2 (test code = 697) EGFR (BEAKER) (test 73 mL/min/1.73 ESTIMA OZIEL GFR IS code = 1092) sq m NOT ACCURATE CREATININE CLEARANCE IN PREDICTING GLOMERULAR FILTRATION RATE . ESTIMATED GFR I S NOT APPLICABLE FOR DIALYSIS PATIEN TS. Sustainability Specialist ID - JAKE MCBC W/PLT COUNT & AUTO [id number] 04:36:31 Test Item Value Reference Range Interpretation Comments WHITE BLOOD CELL COUNT (BEAKER) 9.4 K/ L 3.5-10.5 (test code = 775) RED BLOOD CELL COUNT (BEAKER) 2.71 M/ L 4.63-6.08 L (test code = 761) HEMOGLOBIN (BEAKER) (test code = 7.8 GM/DL 13.7-17.5 L 410) HEMATOCRIT (BEAKER) (test code = 26.1 % 40.1-51.0 L 411) MEAN CORPUSCULAR VOLUME (BEAKER) 96.3 fL 79.0-92.2 H (test code = 753) MEAN CORPUSCULAR HEMOGLOBIN 28.8 pg 25.7-32.2 (BEAKER) (test code = 751) MEAN CORPUSCULAR HEMOGLOBIN CONC 29.9 GM/DL 32.3-36.5 L (BEAKER) (test code = 752) RED CELL DISTRIBUTION WIDTH 20.9 % 11.6-14.4 H (BEAKER) (test code = 412) PLATELET COUNT (BEAKER) (test 157 K/CU MM 150-450 code = 756) MEAN PLATELET VOLUME (BEAKER) 12.0 fL 9.4-12.4 (test code = 754) NUCLEATED RED BLOOD CELLS 0 /100 WBC 0-0 (BEAKER) (test code = 413) NEUTROPHILS RELATIVE PERCENT 75 % (BEAKER) (test code = 429) LYMPHOCYTES RELATIVE PERCENT 15 % (BEAKER) (test code = 430) MONOCYTES RELATIVE PERCENT 8 % (BEAKER) (test code = 431) EOSINOPHILS RELATIVE PERCENT 1 % (BEAKER) (test code = 432) BASOPHILS RELATIVE PERCENT 0 % (BEAKER) (test code = 437) NEUTROPHILS ABSOLUTE COUNT 6.99 K/ L 1.78-5.38 H (BEAKER) (test code = 670) LYMPHOCYTES ABSOLUTE COUNT 1.41 K/ L 1.32-3.57 (BEAKER) (test code = 414) MONOCYTES ABSOLUTE COUNT (BEAKER) 0.73 K/ L 0.30-0.82 (test code = 415) EOSINOPHILS ABSOLUTE COUNT 0.12 K/ L 0.04-0.54 (BEAKER) (test code = 416) BASOPHILS ABSOLUTE COUNT (BEAKER) 0.02 K/ L 0.01-0.08 (test code = 417) IMMATURE GRANULOCYTES-RELATIVE 1 % 0-1 PERCENT (BEAKER) (test code = 2801) Blood gas, [id number] 04:27:09 Test Item Value Reference Range Interpretation Comments pH, Arterial (test code 7.50 7.35-7.45 H = 2744-1) pCO2, Arterial (test 41 See_Comment [Autom ated message] code = 2019-8) The system [facility] generated this result transmit oziel reference range : 35 - 45 mm Hg. The reference range was not used to interpret this result as normal/abnormal . pO2, Arterial (test 107 See_Comment H [Automa oziel message] code = 2703-7) The system [facility] generated this result transmit oziel reference range : 80 - 90 mm Hg. The reference range was not used to interpret this result as normal/abnormal . O2 Sat, Arterial (test 98.1 % 96.0-97.0 H code = 2708-6) HCO3, Arterial (test 31 mmol/L 21-29 H code = 1960-4) Base Excess, Arterial 7.2 mmol/L -2.0-3.0 H (test code = 1925-7) Patient Temperature 38.0 (test code = 8310-5) FIO2 (test code = 1819) 21 Lab Interpretation Abnormal (test code = 20431-3) [facility] [id number] 04:27:09 Test Item Value Reference Range Interpretation Comments PH ARTERIAL (BEAKER) (test code = 7.50 7.35-7.45 H 383) PCO2 ARTERIAL (BEAKER) (test code 41 mm Hg 35-45 = 384) PO2 ARTERIAL (BEAKER) (test code = 107 mm Hg 80-90 H 385) O2 SATURATION ARTERIAL (BEAKER) 98.1 % 96.0-97.0 H (test code = 386) HCO3 ARTERIAL (BEAKER) (test code 31 mmol/L 21-29 H = 388) BASE EXCESS ARTERIAL (BEAKER) 7.2 mmol/L -2.0-3.0 H (test code = 387) PATIENT TEMPERATURE (BEAKER) (test 38.0 code = 1818) FIO2 (BEAKER) (test code = 1819) 21.0 POCT-GLUCOSE [id number] 03:46:20 Test Item Value Reference Range Interpretation Comments POC-GLUCOSE METER 149 mg/dL 70-110 H : TESTED A T [facility] 6720 (BEAKER) (test code = [place], 1538) [address]: Sustainability Specialist/Techni salma ID = [id number] for HAYLIE ALARCON POCT-GLUCOSE [id number] 23:50:31 Test Item Value Reference Range Interpretation Comments POC-GLUCOSE METER 141 mg/dL 70-110 H : TESTED A T [facility] 6720 (BEAKER) (test code = BREEZY Moss [facility], 1538) 49824: Sustainability Specialist/Techni salma ID = [id number] for HAYLIE ALARCON POCT-GLUCOSE [id number] 20:19:25 Test Item Value Reference Range Interpretation Comments POC-GLUCOSE METER 147 mg/dL 70-110 H : TESTED A T [facility] 6720 (BEAKER) (test code = [facility] Isa [facility], 1538) 32392: Sustainability Specialist/Techni salma ID = [id number] for HAYLIE ALARCON BLOOD [id number] 18:00:49 Test Item Value Reference Range Interpretation Comments CULTURE (BEAKER) (test No growth in 5 days code = 1095) The specimen volume collected for this blood culture was below the optimum (10 mL per bottle or 20 mL total). Use of lower volumes may adversely affect recovery and/or detection times of some organisms.BLOOD [id number] 18:00:48 Test Item Value Reference Range Interpretation Comments CULTURE (BEAKER) (test No growth in 5 days code = 1095) The specimen volume collected for this blood culture was below the optimum (10 mL per bottle or 20 mL total). Use of lower volumes may adversely affect recovery and/or detection times of some organisms.CT, ABDOMEN, RENAL MASS, CYST [id number] 17:09:00Renal mass protocolCT abd/pelvis 06/18 with left renal lower pole cyst with calcificationsPlease amend as necessaryUnlisted Reason for Exam - Click Yes and Enter Reason Below->No [facility] : 1950 Sex: MFINAL REPORT ABDOMINAL CT DATED 07/04/2021 CLINICAL INFORMATION: Renal mass, normalrenal function TECHNIQUE: Axial images of the abdomen were obtained from diaphragm to the upper pelvis with and without intravenous contrast. This exam was performed according to our departmental dose-optimization program, which includes automated exposure control, adjustment of the mA and/or kV accord ing to patient size and/or use of interactive reconstruction technique. COMMENT: Subsegmental atelectasis is seen in both lower lobes. Liver and spleen are normal in size. A 1.4 cm early enhancing lesions seen in the segment 5 of the liver. No delayed washout is present. Gallbladder is contracted. No gallstone or biliary dilatation is noted. Pancreas and adrenals are unremarkable. Both kidneys are normal in size and functioning with prompt bilateral excretion. A 1.6 cm cyst is seen in the upper poleleft kidney. A 1.3 cm cyst is seen in the midpole left kidney. A peripheral calcified cystic lesion is seen in the inferior pole left kidney. Several simple cysts are seen in the right kidney with largest measuring 2.3 x 3.3 cm. No enhancing renal mass is identified. 2 small 2-3 mm stones are seen in the right kidney. No hydronephrosis or hydroureter is noted. Diverticular disease is seen in the large bowel without diverticulitis. Small bowel and appendix are normal in caliber. Vascular calcification is seen in the abdominal aorta, splenic, superior mesenteric, and bilateral iliac arteries. No mass, adenopathy or ascites is present. IMPRESSION: 1. Early enhancing lesion in the segment 5 liver without delayed washout suggestive of flash hemangioma.2. Simple bilateral renal cysts and calcified cystic lesion in the inferior pole left kidney.3. Nonobstructive right renal stones.4. Diverticulosis without diverticulitis. Signed: Amber Ahn Verified Date/Time: 07/04/2021 17:09:07 Reading Location: [facility] B1 C013Y CT Body Reading Room -GLUCOSE [id number] 16:41:35 Test Item Value Reference Range Interpretation Comments POC-GLUCOSE METER 101 mg/dL 70-110 : TESTED A T [facility] 6720 (BEAKER) (test code = BREEZY Moss [place], 1538) [address]: Sustainability Specialist/Techni salma ID = [id number] for TRANG KAMARA POCT-GLUCOSE [id number] 12:17:18 Test Item Value Reference Range Interpretation Comments POC-GLUCOSE METER 95 mg/dL 70-110 : TESTED A T [facility] 6720 (BEAKER) (test code = [place]REE[place] Moss [place], 1538) [address]: Sustainability Specialist/Techni salma ID = [id number] for TRANG CHAPA [id number] 11:02:32 Test Item Value Reference Range Interpretation Comments Cortisol, Total (test code 17.0 ug/dL 3.7-19.4 = 2755) BANDAR (test code = BANDAR) Sustainability Specialist ID - JULIETTE L Lab Interpretation (test Normal code = 68966-4) [facility]OL[facility] 11:02:32 Test Item Value Reference Range Interpretation Comments CORTISOL, TOTAL (BEAKER) (test 17.0 ug/dL 3.7-19.4 code = 2755) Sustainability Specialist ID - JULIETTE LUrinalysis w/Microscopic + Reflex to [id number] 10:43:10 Test Item Value Reference Range Interpretation Comments Color, UA (test code Yellow = 5778-6) Clarity, UA (test Clear code = 5767-9) Specific [place], UA 1.020 1.001-1.035 (test code = 5811-5) pH, UA (test code = 5.5 5.0-8.0 5803-2) Protein, UA (test 20 mg/dL Negative A code = 17336-9) Glucose, UA (test Negative Negative code = 365) Ketones, UA (test Negative Negative code = 2514-8) Bilirubin, UA (test Negative Negative code = 67035-5) Blood, UA (test code Trace Negative A = 59684-3) Nitrite, UA (test Negative Negative code = 5802-4) Leukocytes, UA (test Negative Negative code = 5799-2) Urobilinogen, UA 0.2 mg/dL 0.2-1.0 (test code = 96457-2) RBC, UA (test code = <1 See_Comment [Autom ated 80793-9) message] The system which generated this result transmit oziel reference range : /HPF. The reference range was not used to interpret this result as normal/abnormal . WBC, UA (test code = 2 See_Comment [Autom ated 5821-4) message] The system which generated this result transmit oziel reference range : /HPF. The reference range was not used to interpret this result as normal/abnormal . Bacteria, UA (test None Seen code = 73768-8) Squam Epithel, UA <1 See_Comment [Automate d (test code = 40884-1) messag e] The system which generated this result transmit oziel reference range : /HPF. The reference range was not used to interpret this result as normal/abnormal . Crystals, Urine (test Rare code = 52860-1) Specimen Source (test code = 2795) BANDAR (test code = BANDAR) Sustainability Specialist ID - [auto]Sustainability Specialist ID - tech Lab Interpretation Abnormal (test code = 83087-2) [facility] W/ REFLEX URINE [id number] 10:43:10 Test Item Value Reference Range Interpretation Comments COLOR (BEAKER) (test code = 470) Yellow CLARITY (BEAKER) (test code = 469) Clear SPECIFIC GRAVITY UA (BEAKER) (test 1.020 1.001-1.035 code = 468) PH UA (BEAKER) (test code = 467) 5.5 5.0-8.0 PROTEIN UA (BEAKER) (test code = 20 mg/dL Negative A 464) GLUCOSE UA (BEAKER) (test code = Negative Negative 365) KETONES UA (BEAKER) (test code = Negative Negative 371) BILIRUBIN UA (BEAKER) (test code = Negative Negative 462) BLOOD UA (BEAKER) (test code = 461) Trace Negative A NITRITE UA (BEAKER) (test code = Negative Negative 465) LEUKOCYTE ESTERASE UA (BEAKER) Negative Negative (test code = 466) UROBILINOGEN UA (BEAKER) (test code 0.2 mg/dL 0.2-1.0 = 463) RBC UA (BEAKER) (test code = 519) < /HPF WBC UA (BEAKER) (test code = 520) 2 /HPF BACTERIA (BEAKER) (test code = 517) None Seen SQUAMOUS EPITHELIAL (BEAKER) (test < /HPF code = 516) CRYSTALS, URINE (BEAKER) (test code Rare = 1521) SOURCE(BEAKER) (test code = 2795) Sustainability Specialist ID - [auto]Sustainability Specialist ID - fhjiZFNJYNLYTBFIJ4534-37-73 10:22:39 Test Item Value Reference Range Interpretation Comments PROCALCITONIN (BEAKER) (test code 0.34 ng/mL <0.05 H = 3036) SEPSIS RISK (ng/mL)Low: 0.05-0.50Intermediate: 0.51-2.00High: >=2.01Lactic Acid, [id number] 09:51:27 Test Item Value Reference Range Interpretation Comments Lactate, Art (test code = 0.6 mmol/L 0.5-2.2 2874) BANDAR (test code = BANDAR) Sustainability Specialist ID - JULIETTE L Lab Interpretation (test Normal code = 04722-2) [facility] MonicaLACTIC ACID, [id number] 09:51:27 Test Item Value Reference Range Interpretation Comments LACTATE BLOOD ARTERIAL (2) 0.6 mmol/L 0.5-2.2 (BEAKER) (test code = 2874) Sustainability Specialist ID - JULIETTE LPOCT-GLUCOSE [id number] 06:43:06 Test Item Value Reference Range Interpretation Comments POC-GLUCOSE METER 103 mg/dL 70-110 : TESTED A T [facility] 6720 (BEAKER) (test code = BREEZY Isa [facility], 1538) [address]67: Sustainability Specialist/Techni salma ID = [id number] for Al i, Kaelyn POCT-GLUCOSE [id number] 04:21:27 Test Item Value Reference Range Interpretation Comments POC-GLUCOSE METER 80 mg/dL 70-110 : TESTED A T [facility] 6720 (BEAKER) (test code = BREEZY Moss [facility], 1538) 47260: Sustainability Specialist/Techni salma ID = [id number] for HAYLIE CHOU RAD, CHEST, 1 VIEW, NON [id number] 04:10:00Reason for exam:- >intubatedShould this be performed at the bedside?->Yes [facility] : 1950 Sex: MFINAL REPORT RAD, CHEST, 1 VIEW, NON DEPT INDICATION: intubated COMPARISON: Priorday's exam FINDINGS: Portable frontal view of the chest. IMPRESSION: Support Lines: ET tube is been removed. Duotube courses into the abdomen. Lungs and pleura: Stable scattered reticular opacities, greater on the left. No large effusion, new lung consolidation or pneumothorax.Heart and mediastinum: Stable contours. Additional findings: None. Signed: Maximilian Ulloa MDReport Verified Date/Time: 07/04/2021 04:10:35 HEPATIC FUNCTION [id number] 04:08:17 Test Item Value Reference Range Interpretation Comments TOTAL PROTEIN (BEAKER) (test code = 5.6 gm/dL 6.0-8.3 L 770) ALBUMIN (BEAKER) (test code = 1145) 2.6 g/dL 3.5-5.0 L BILIRUBIN TOTAL (BEAKER) (test code 0.5 mg/dL 0.2-1.2 = 377) BILIRUBIN DIRECT (BEAKER) (test 0.2 mg/dL 0.1-0.5 code = 706) ALKALINE PHOSPHATASE (BEAKER) (test 74 U/L 40-150 code = 346) AST (SGOT) (BEAKER) (test code = 60 U/L 5-34 H 353) ALT (SGPT) (BEAKER) (test code = 65 U/L 6-55 H 347) Sustainability Specialist ID - [id number] 04:08:16 Test Item Value Reference Range Interpretation Comments MAGNESIUM (BEAKER) (test code = 2.2 mg/dL 1.6-2.6 627) Sustainability Specialist ID - DBBASIC METABOLIC [id number] 04:08:15 Test Item Value Reference Range Interpretation Comments SODIUM (BEAKER) 143 meq/L 136-145 (test code = 381) POTASSIUM (BEAKER) 4.0 meq/L 3.5-5.1 (test code = 379) CHLORIDE (BEAKER) 106 meq/L 98-107 (test code = 382) CO2 (BEAKER) (test 31 meq/L 22-29 H code = 355) BLOOD UREA NITROGEN 63 mg/dL 7-21 H (BEAKER) (test code = 354) CREATININE (BEAKER) 1.05 mg/dL 0.57-1.25 (test code = 358) GLUCOSE RANDOM 82 mg/dL 70-105 (BEAKER) (test code = 652) CALCIUM (BEAKER) 9.1 mg/dL 8.4-10.2 (test code = 697) EGFR (BEAKER) (test 69 mL/min/1.73 ESTIMA OZIEL GFR IS code = 1092) sq m NOT ACCURATE CREATININE CLEARANCE IN PREDICTING GLOMERULAR FILTRATION RATE . ESTIMATED GFR I S NOT APPLICABLE FOR DIALYSIS PATIEN TS. Sustainability Specialist ID - [id number] 04:05:54 Test Item Value Reference Range Interpretation Comments PARTIAL THROMBOPLASTIN TIME 66.2 seconds 22.5-36.0 H (BEAKER) (test code = 760) BLOOD GAS, [id number] 03:51:23 Test Item Value Reference Range Interpretation Comments PH ARTERIAL (BEAKER) (test code = 7.47 7.35-7.45 H 383) PCO2 ARTERIAL (BEAKER) (test code 44 mm Hg 35-45 = 384) PO2 ARTERIAL (BEAKER) (test code = 149 mm Hg 80-90 H 385) O2 SATURATION ARTERIAL (BEAKER) 99.0 % 96.0-97.0 H (test code = 386) HCO3 ARTERIAL (BEAKER) (test code 31 mmol/L 21-29 H = 388) BASE EXCESS ARTERIAL (BEAKER) 6.6 mmol/L -2.0-3.0 H (test code = 387) PATIENT TEMPERATURE (BEAKER) (test 37.8 code = 1818) FIO2 (BEAKER) (test code = 1819) 36.0 CBC W/PLT COUNT & AUTO [id number] 03:38:15 Test Item Value Reference Range Interpretation Comments WHITE BLOOD CELL COUNT (BEAKER) 10.7 K/ L 3.5-10.5 H (test code = 775) RED BLOOD CELL COUNT (BEAKER) 2.57 M/ L 4.63-6.08 L (test code = 761) HEMOGLOBIN (BEAKER) (test code = 7.4 GM/DL 13.7-17.5 L 410) HEMATOCRIT (BEAKER) (test code = 24.7 % 40.1-51.0 L 411) MEAN CORPUSCULAR VOLUME (BEAKER) 96.1 fL 79.0-92.2 H (test code = 753) MEAN CORPUSCULAR HEMOGLOBIN 28.8 pg 25.7-32.2 (BEAKER) (test code = 751) MEAN CORPUSCULAR HEMOGLOBIN CONC 30.0 GM/DL 32.3-36.5 L (BEAKER) (test code = 752) RED CELL DISTRIBUTION WIDTH 20.3 % 11.6-14.4 H (BEAKER) (test code = 412) PLATELET COUNT (BEAKER) (test 136 K/CU MM 150-450 L code = 756) MEAN PLATELET VOLUME (BEAKER) 11.3 fL 9.4-12.4 (test code = 754) NUCLEATED RED BLOOD CELLS 0 /100 WBC 0-0 (BEAKER) (test code = 413) NEUTROPHILS RELATIVE PERCENT 75 % (BEAKER) (test code = 429) LYMPHOCYTES RELATIVE PERCENT 16 % (BEAKER) (test code = 430) MONOCYTES RELATIVE PERCENT 6 % (BEAKER) (test code = 431) EOSINOPHILS RELATIVE PERCENT 1 % (BEAKER) (test code = 432) BASOPHILS RELATIVE PERCENT 0 % (BEAKER) (test code = 437) NEUTROPHILS ABSOLUTE COUNT 8.03 K/ L 1.78-5.38 H (BEAKER) (test code = 670) LYMPHOCYTES ABSOLUTE COUNT 1.73 K/ L 1.32-3.57 (BEAKER) (test code = 414) MONOCYTES ABSOLUTE COUNT (BEAKER) 0.62 K/ L 0.30-0.82 (test code = 415) EOSINOPHILS ABSOLUTE COUNT 0.15 K/ L 0.04-0.54 (BEAKER) (test code = 416) BASOPHILS ABSOLUTE COUNT (BEAKER) 0.01 K/ L 0.01-0.08 (test code = 417) IMMATURE GRANULOCYTES-RELATIVE 1 % 0-1 PERCENT (AKER) (test code = 2801) POCT-GLUCOSE [id number] 03:34:47 Test Item Value Reference Range Interpretation Comments POC-GLUCOSE METER 76 mg/dL 70-110 : TESTED A T [facility] 6720 ([facility]) (test code = [facility], [facility]8) [address]: Sustainability Specialist/Techni salma ID = [id number] for Ali, Kaelyn POCT-GLUCOSE [id number] 02:47:41 Test Item Value Reference Range Interpretation Comments POC-GLUCOSE METER 88 mg/dL 70-110 : TESTED A T [facility] 6720 ([facility]) (test code = [facility], [facility]8) [address]: Sustainability Specialist/Techni salma ID = [id number] for JONATHON SRAFIHAYLIE [id number] 00:48:54 Test Item Value Reference Range Interpretation Comments PARTIAL THROMBOPLASTIN TIME 69.4 seconds 22.5-36.0 H ([facility]) (test code = 760) POCT-GLUCOSE [id number] 00:30:52 Test Item Value Reference Range Interpretation Comments POC-GLUCOSE METER 83 mg/dL 70-110 : [facility] T [facility] 67[facility] (test code = [facility], [facility]8) [address]: Sustainability Specialist/Techni salma ID = [id number] for Ali, Kaelyn POCT-GLUCOSE [id number] 22:36:15 Test Item Value Reference Range Interpretation Comments POC-GLUCOSE METER 84 mg/dL 70-110 : TESTED A T [facility] 6720 (BEAKER) (test code = [facility], [facility]8) [address]: Sustainability Specialist/Techni salma ID = [id number] for JONATHON S, HAYLIE POCT-GLUCOSE [id number] 20:40:48 Test Item Value Reference Range Interpretation Comments POC-GLUCOSE METER 91 mg/dL 70-110 : TESTED A T [facility] 6720 ([facility] (test code = [facility], [facility]8) [address]: Sustainability Specialist/Techni salma ID = [id number] for Ali, Kaelyn POCT-GLUCOSE [id number] 18:39:17 Test Item Value Reference Range Interpretation Comments POC-GLUCOSE METER 104 mg/dL 70-110 : TESTED A T [facility] 6720 (BEAKER) (test code [facility], = 1538) [address]: Sustainability Specialist/Techni salma ID = [id number] for Alyssa alfredo (contract), Bella barrios BASIC METABOLIC [id number] 18:02:42 Test Item Value Reference Range Interpretation Comments SODIUM (BEAKER) 144 meq/L 136-145 (test code = 381) POTASSIUM (BEAKER) 3.9 meq/L 3.5-5.1 (test code = 379) CHLORIDE (BEAKER) 106 meq/L 98-107 (test code = 382) CO2 (BEAKER) (test 30 meq/L 22-29 H code = 355) BLOOD UREA NITROGEN 64 mg/dL 7-21 H (BEAKER) (test code = 354) CREATININE (BEAKER) 1.11 mg/dL 0.57-1.25 (test code = 358) GLUCOSE RANDOM 45 mg/dL 70-105 L (BEAKER) (test code = 652) CALCIUM (BEAKER) 9.3 mg/dL 8.4-10.2 (test code = 697) EGFR (BEAKER) (test 65 mL/min/1.73 ESTIMA OZIEL GFR IS code = 1092) sq m NOT ACCURATE CREATININE CLEARANCE IN PREDICTING GLOMERULAR FILTRATION RATE . ESTIMATED GFR I S NOT APPLICABLE FOR DIALYSIS PATIEN TS. Sustainability Specialist ID - [id number] 18:02:04 Test Item Value Reference Range Interpretation Comments PARTIAL THROMBOPLASTIN TIME 68.1 seconds 22.5-36.0 H (BEAKER) (test code = 760) Vancomycin level, [id number] 18:01:04 Test Item Value Reference Range Interpretation Comments Vancomycin Tr (test code = 15.9 ug/mL 10.0-20.0 4092-3) BANDAR (test code = BANDAR) Sustainability Specialist ID - DB Lab Interpretation (test Normal code = 12544-9) [facility], [id number] 18:01:04 Test Item Value Reference Range Interpretation Comments VANCOMYCIN TROUGH (BEAKER) (test 15.9 ug/mL 10.0-20.0 code = 522) Sustainability Specialist ID - DBPOCT-GLUCOSE [id number] 17:59:09 Test Item Value Reference Range Interpretation Comments POC-GLUCOSE METER 36 mg/dL 70-110 LL : Notified RN/MD: TESTED (GALE) (test code = AT [facility], 770 30: Sustainability Specialist/Techni salma ID = [id number] for Alyssa alfredo (contract), Alu sine CBC (Hemogram only)2021-07-03 17:55:55 Test Item Value Reference Range Interpretation Comments WBC (test code = 6690-2) 11.0 See_Comment H [A utomated message] The system Mobi generated this result transmitted ref erence range: 3.5 - 10 .5 K/L. The refe rence range was not u sed to interpret this result as normal/abnor mal. RBC (test code = 789-8) 2.70 See_Comment L [Au tomated message] The system Mobi generated this result transmitted ref erence range: 4.63 - 6 .08 M/L. The refe rence range was not u sed to interpret this result as normal/abnor mal. MCHC (test code = 786-4) 30.1 See_Comment L [A utomated message] The system Mobi generated this result transmitted ref erence range: 32.3 - 3 6.5 GM/DL. The refe rence range was not u sed to interpret this result as normal/abnor mal. Hematocrit (test code = 25.6 % 40.1-51.0 L 4544-3) MCV (test code = 787-2) 94.8 fL 79.0-92.2 H MCH (test code = 785-6) 28.5 pg 25.7-32.2 RDW (test code = 788-0) 20.3 % 11.6-14.4 H Platelets (test code = 138 See_Comment L [Aut omated message] 777-3) The system Mobi generated this result transmitted ref erence range: 150 - 45 0 K/CU MM. The referen ce range was not u sed to interpret this result as normal/abnor mal. MPV (test code = 11.8 fL 9.4-12.4 88608-6) nRBC (test code = 413) 0 See_Comment [Aut omated message] The system Mobi generated this result transmitted ref erence range: 0 - 0 /1 00 WBC. The refere nce range was not u sed to interpret this result as normal/abnor mal. Lab Interpretation (test Abnormal code = 59501-1) [facility] (HEMOGRAM ONLY)2021-07-03 17:55:55 Test Item Value Reference Range Interpretation Comments WHITE BLOOD CELL COUNT (BEAKER) 11.0 K/ L 3.5-10.5 H (test code = 775) RED BLOOD CELL COUNT (BEAKER) 2.70 M/ L 4.63-6.08 L (test code = 761) HEMOGLOBIN (BEAKER) (test code = 7.7 GM/DL 13.7-17.5 L 410) HEMATOCRIT (BEAKER) (test code = 25.6 % 40.1-51.0 L 411) MEAN CORPUSCULAR VOLUME (BEAKER) 94.8 fL 79.0-92.2 H (test code = 753) MEAN CORPUSCULAR HEMOGLOBIN 28.5 pg 25.7-32.2 (BEAKER) (test code = 751) MEAN CORPUSCULAR HEMOGLOBIN CONC 30.1 GM/DL 32.3-36.5 L (BEAKER) (test code = 752) RED CELL DISTRIBUTION WIDTH 20.3 % 11.6-14.4 H (BEAKER) (test code = 412) PLATELET COUNT (BEAKER) (test 138 K/CU MM 150-450 L code = 756) MEAN PLATELET VOLUME (BEAKER) 11.8 fL 9.4-12.4 (test code = 754) NUCLEATED RED BLOOD CELLS 0 /100 WBC 0-0 (BEAKER) (test code = 413) BLOOD GAS, [id number] 17:51:47 Test Item Value Reference Range Interpretation Comments PH ARTERIAL (BEAKER) (test code = 7.52 7.35-7.45 H 383) PCO2 ARTERIAL (BEAKER) (test code 38 mm Hg 35-45 = 384) PO2 ARTERIAL (BEAKER) (test code = 195 mm Hg 80-90 H 385) O2 SATURATION ARTERIAL (BEAKER) 99.5 % 96.0-97.0 H (test code = 386) HCO3 ARTERIAL (BEAKER) (test code 30 mmol/L 21-29 H = 388) BASE EXCESS ARTERIAL (BEAKER) 7.0 mmol/L -2.0-3.0 H (test code = 387) PATIENT TEMPERATURE (BEAKER) (test 37.0 code = 1818) RAD, ABDOMEN/KUB, 1 VIEW [id number] 17:30:00Reason for exam:->s/p NGT placementShould this be performed at the bedside?->Yes [facility] 1950 Sex: MFINAL REPORT RAD, ABDOMEN/KUB, 1 VIEW AP TECHNIQUE: Supine radiograph(s) of the abdomen and pelvis. HISTORY: s/p NGT placement COMPARISON: 06/26/2021 IMPRESSION: Lines and tubes: Corpak tube tip projects over the gastric body. Bowel gas pattern: Nonobstructive bowel gas pattern. Other: No acute osseous abnormality. Redemonstration of a peripherally calcified 3.5 cm focus projecting over the left mid abdomen and densely calcified 1.3 cm focus projecting over the right lower quadrant, uncertain significance or etiology. Degenerative changes of the visible spine and median sternotomywires. Streaky left perihilar airspace opacity. Signed: Calvin Lopez Verified Date/Time: 07/03/2021 17:30:43 2D Echo W/Doppler(CW/PW/Color)2021-07-03 17:00:26Ejection FractionSLEH ECHO HEARTLAB MKCKESSON [facility]ATemple [facility] HospitalMAGNESIUM2022-02-28 14:45:22 Test Item Value Reference Range Interpretation Comments MAGNESIUM (BEAKER) (test code = 2.2 mg/dL 1.6-2.6 627) Sustainability Specialist ID - JAKE MBASIC METABOLIC [id number] 14:45:21 Test Item Value Reference Range Interpretation Comments SODIUM (BEAKER) 142 meq/L 136-145 (test code = 381) POTASSIUM (BEAKER) 3.9 meq/L 3.5-5.1 (test code = 379) CHLORIDE (BEAKER) 105 meq/L 98-107 (test code = 382) CO2 (BEAKER) (test 29 meq/L 22-29 code = 355) BLOOD UREA NITROGEN 62 mg/dL 7-21 H (BEAKER) (test code = 354) CREATININE (BEAKER) 1.12 mg/dL 0.57-1.25 (test code = 358) GLUCOSE RANDOM 97 mg/dL 70-105 (BEAKER) (test code = 652) CALCIUM (BEAKER) 9.1 mg/dL 8.4-10.2 (test code = 697) EGFR (BEAKER) (test 64 mL/min/1.73 ESTIMA OZIEL GFR IS code = 1092) sq m NOT ACCURATE CREATININE CLEARANCE IN PREDICTING GLOMERULAR FILTRATION RATE . ESTIMATED GFR I S NOT APPLICABLE FOR DIALYSIS PATIEN TS. Sustainability Specialist ID - JAKE MPOCT-GLUCOSE [id number] 12:25:21 Test Item Value Reference Range Interpretation Comments POC-GLUCOSE METER 114 mg/dL 70-110 H : TESTED A T [facility] 6720 (BEAKER) (test code [facility], = 1538) [address]: Sustainability Specialist/Techni salma ID = [id number] for Alyssa alfredo (contract), Alu sine [id number] 10:11:32 Test Item Value Reference Range Interpretation Comments PARTIAL THROMBOPLASTIN TIME 58.1 seconds 22.5-36.0 H (BEAKER) (test code = 760) BLOOD GAS, [id number] 09:54:21 Test Item Value Reference Range Interpretation Comments PH ARTERIAL (BEAKER) (test code = 7.51 7.35-7.45 H 383) PCO2 ARTERIAL (BEAKER) (test code 39 mm Hg 35-45 = 384) PO2 ARTERIAL (BEAKER) (test code = 214 mm Hg 80-90 H 385) O2 SATURATION ARTERIAL (BEAKER) 99.5 % 96.0-97.0 H (test code = 386) HCO3 ARTERIAL (BEAKER) (test code 30 mmol/L 21-29 H = 388) BASE EXCESS ARTERIAL (BEAKER) 6.7 mmol/L -2.0-3.0 H (test code = 387) PATIENT TEMPERATURE (BEAKER) (test 37.0 code = 1818) FIO2 (BEAKER) (test code = 1819) 100.0 Venous doppler arm, [id number] 07:40:19Ejection FractionSLEH ECHO HEARTLAB MKCKESSON CPACHI [facility] [id number] 06:15:33 Test Item Value Reference Range Interpretation Comments POC-GLUCOSE METER 108 mg/dL 70-110 : TESTED A T [facility] 6720 (BEAKER) (test code = [place] [place], 1538) [address]: Sustainability Specialist/Techni salma ID = [id number] for HAYLIE ALARCON RAD, CHEST, 1 VIEW, NON [id number] 04:35:00Reason for exam:- >intubatedShould this be performed at the bedside?->Yes [facility] 1950 Sex: MFINAL REPORT RAD, CHEST, 1 VIEW, NON DEPT INDICATION: intubated COMPARISON: Priorday's exam FINDINGS: Portable frontal view of the chest. IMPRESSION: Support Lines: Stable. Lungs and pleura: Unchanged bilateral interstitial pulmonary edema. No new consolidation or large effusion. No pneumothorax. Heart and mediastinum: Stable contours. Additional findings: None. Signed: Amber Haskins MDReport Verified Date/Time: 07/03/2021 04:35:11 BLOOD GAS, [id number] 04:24:51 Test Item Value Reference Range Interpretation Comments PH ARTERIAL (BEAKER) (test code = 7.50 7.35-7.45 H 383) PCO2 ARTERIAL (BEAKER) (test code 40 mm Hg 35-45 = 384) PO2 ARTERIAL (BEAKER) (test code = 138 mm Hg 80-90 H 385) O2 SATURATION ARTERIAL (BEAKER) 99.0 % 96.0-97.0 H (test code = 386) HCO3 ARTERIAL (BEAKER) (test code 30 mmol/L 21-29 H = 388) BASE EXCESS ARTERIAL (BEAKER) 6.4 mmol/L -2.0-3.0 H (test code = 387) PATIENT TEMPERATURE (BEAKER) (test 36.5 code = 1818) FIO2 (BEAKER) (test code = 1819) 40.0 Lactate dehydrogenase (LDH)2021-07-03 04:04:50 Test Item Value Reference Range Interpretation Comments LDH (test code = 2532-0) 229 U/L 125-220 H BANDAR (test code = BANDAR) Sustainability Specialist ID - JAKE M Lab Interpretation (test Abnormal code = 62972-2) [facility] Monica[facility]CT[facility] DEHYDROGENASE (LDH)2021-07-03 04:04:50 Test Item Value Reference Range Interpretation Comments LACTATE DEHYDROGENASE (BEAKER) (test 229 U/L 125-220 H code = 635) Sustainability Specialist ID - JAKE [id number] 04:04:49 Test Item Value Reference Range Interpretation Comments MAGNESIUM (BEAKER) (test code = 2.1 mg/dL 1.6-2.6 627) Sustainability Specialist ID - JAKE MBASIC METABOLIC [id number] 04:04:48 Test Item Value Reference Range Interpretation Comments SODIUM (BEAKER) 143 meq/L 136-145 (test code = 381) POTASSIUM (BEAKER) 3.9 meq/L 3.5-5.1 (test code = 379) CHLORIDE (BEAKER) 105 meq/L 98-107 (test code = 382) CO2 (BEAKER) (test 30 meq/L 22-29 H code = 355) BLOOD UREA NITROGEN 61 mg/dL 7-21 H (BEAKER) (test code = 354) CREATININE (BEAKER) 1.22 mg/dL 0.57-1.25 (test code = 358) GLUCOSE RANDOM 90 mg/dL 70-105 (BEAKER) (test code = 652) CALCIUM (BEAKER) 9.2 mg/dL 8.4-10.2 (test code = 697) EGFR (BEAKER) (test 58 mL/min/1.73 ESTIMA OZIEL GFR IS code = 1092) sq m NOT ACCURATE CREATININE CLEARANCE IN PREDICTING GLOMERULAR FILTRATION RATE . ESTIMATED GFR I S NOT APPLICABLE FOR DIALYSIS PATIEN TS. Sustainability Specialist ID - JAKE [id number] 03:55:23 Test Item Value Reference Range Interpretation Comments PARTIAL THROMBOPLASTIN TIME 70.7 seconds 22.5-36.0 H (BEAKER) (test code = 760) CBC W/PLT COUNT & AUTO [id number] 03:49:58 Test Item Value Reference Range Interpretation Comments WHITE BLOOD CELL COUNT (BEAKER) 8.8 K/ L 3.5-10.5 (test code = 775) RED BLOOD CELL COUNT (BEAKER) 2.52 M/ L 4.63-6.08 L (test code = 761) HEMOGLOBIN (BEAKER) (test code = 7.1 GM/DL 13.7-17.5 L 410) HEMATOCRIT (BEAKER) (test code = 24.0 % 40.1-51.0 L 411) MEAN CORPUSCULAR VOLUME (BEAKER) 95.2 fL 79.0-92.2 H (test code = 753) MEAN CORPUSCULAR HEMOGLOBIN 28.2 pg 25.7-32.2 (BEAKER) (test code = 751) MEAN CORPUSCULAR HEMOGLOBIN CONC 29.6 GM/DL 32.3-36.5 L (BEAKER) (test code = 752) RED CELL DISTRIBUTION WIDTH 20.2 % 11.6-14.4 H (BEAKER) (test code = 412) PLATELET COUNT (BEAKER) (test 117 K/CU MM 150-450 L code = 756) MEAN PLATELET VOLUME (BEAKER) 12.1 fL 9.4-12.4 (test code = 754) NUCLEATED RED BLOOD CELLS 0 /100 WBC 0-0 (BEAKER) (test code = 413) NEUTROPHILS RELATIVE PERCENT 72 % (BEAKER) (test code = 429) LYMPHOCYTES RELATIVE PERCENT 19 % (BEAKER) (test code = 430) MONOCYTES RELATIVE PERCENT 7 % (BEAKER) (test code = 431) EOSINOPHILS RELATIVE PERCENT 2 % (BEAKER) (test code = 432) BASOPHILS RELATIVE PERCENT 0 % (BEAKER) (test code = 437) NEUTROPHILS ABSOLUTE COUNT 6.33 K/ L 1.78-5.38 H (BEAKER) (test code = 670) LYMPHOCYTES ABSOLUTE COUNT 1.66 K/ L 1.32-3.57 (BEAKER) (test code = 414) MONOCYTES ABSOLUTE COUNT (BEAKER) 0.60 K/ L 0.30-0.82 (test code = 415) EOSINOPHILS ABSOLUTE COUNT 0.13 K/ L 0.04-0.54 (BEAKER) (test code = 416) BASOPHILS ABSOLUTE COUNT (BEAKER) 0.02 K/ L 0.01-0.08 (test code = 417) IMMATURE GRANULOCYTES-RELATIVE 1 % 0-1 PERCENT (BEAKER) (test code = 2801) POCT-GLUCOSE [id number] 00:14:21 Test Item Value Reference Range Interpretation Comments POC-GLUCOSE METER 101 mg/dL 70-110 : TESTED A T [facility] 6720 (BEAKER) (test code = [facility] [place], 1538) [address]: Sustainability Specialist/Techni salma ID = [id number] for HAYLIE ALARCON [id number] 21:27:11 Test Item Value Reference Range Interpretation Comments PARTIAL THROMBOPLASTIN TIME 98.8 seconds 22.5-36.0 H (BEAKER) (test code = 760) BASIC METABOLIC [id number] 21:14:49 Test Item Value Reference Range Interpretation Comments SODIUM (BEAKER) 141 meq/L 136-145 (test code = 381) POTASSIUM (BEAKER) 4.0 meq/L 3.5-5.1 (test code = 379) CHLORIDE (BEAKER) 105 meq/L 98-107 (test code = 382) CO2 (BEAKER) (test 27 meq/L 22-29 code = 355) BLOOD UREA NITROGEN 61 mg/dL 7-21 H (BEAKER) (test code = 354) CREATININE (BEAKER) 1.15 mg/dL 0.57-1.25 (test code = 358) GLUCOSE RANDOM 121 mg/dL 70-105 H (BEAKER) (test code = 652) CALCIUM (BEAKER) 9.2 mg/dL 8.4-10.2 (test code = 697) EGFR (BEAKER) (test 63 mL/min/1.73 ESTIMA OZIEL GFR IS code = 1092) sq m NOT ACCURATE CREATININE CLEARANCE IN PREDICTING GLOMERULAR FILTRATION RATE . ESTIMATED GFR I S NOT APPLICABLE FOR DIALYSIS PATIEN TS. Sustainability Specialist ID - DBPOCT-GLUCOSE [id number] 20:20:33 Test Item Value Reference Range Interpretation Comments POC-GLUCOSE METER 108 mg/dL 70-110 : TESTED A T [facility] 6720 (BEAKER) (test code = [facility], 1538) [address]: Sustainability Specialist/Techni salma ID = [id number] for HAYLIE ALARCON [id number] 18:55:54 Test Item Value Reference Range Interpretation Comments MAGNESIUM (BEAKER) (test code = 2.1 mg/dL 1.6-2.6 627) Sustainability Specialist ID - DBPOCT-GLUCOSE [id number] 18:12:59 Test Item Value Reference Range Interpretation Comments POC-GLUCOSE METER 97 mg/dL 70-110 : TESTED A T [facility] 6720 (BEAKER) (test code = [facility], 1538) [address]: Sustainability Specialist/Techni salma ID = [id number] for ALISHA MARIN BASIC METABOLIC [id number] 14:14:27 Test Item Value Reference Range Interpretation Comments SODIUM (BEAKER) 141 meq/L 136-145 (test code = 381) POTASSIUM (BEAKER) 4.0 meq/L 3.5-5.1 (test code = 379) CHLORIDE (BEAKER) 107 meq/L 98-107 (test code = 382) CO2 (BEAKER) (test 28 meq/L 22-29 code = 355) BLOOD UREA NITROGEN 59 mg/dL 7-21 H (BEAKER) (test code = 354) CREATININE (BEAKER) 1.12 mg/dL 0.57-1.25 (test code = 358) GLUCOSE RANDOM 103 mg/dL 70-105 (BEAKER) (test code = 652) CALCIUM (BEAKER) 9.1 mg/dL 8.4-10.2 (test code = 697) EGFR (GALE) (test 64 mL/min/1.73 ESTIMA OZIEL GFR IS code = 1092) sq m NOT ACCURATE CREATININE CLEARANCE IN PREDICTING GLOMERULAR FILTRATION RATE . ESTIMATED GFR I S NOT APPLICABLE FOR DIALYSIS PATIEN TS. Sustainability Specialist ID - DBMR, BRAIN, WITHOUT [id number] 14:13:00Unlisted Reason for Exam - Click Yes and Enter Reason Below->No [facility] : 1950 Sex: MFINAL REPORT EXAM/TECHNIQUE: MRI of the brain without contrast. Multiplanar multisequence images were acquired. INDICATION: Altered mental status. COMPARISON: None. FINDINGS: Global parenchymal volume loss. Mild burden of T2/FLAIR white matter hyperintense lesions, likely reflectingchronic microvascular changes. No abnormal parenchymal DWI hyperintensity. No abnormal susceptibility artifact. Ventricles are normal. Basal cisterns are patent. No midline shift. No tonsillar ectopia.Midline structures are unremarkable. Visualized face and upper neck are unremarkable. Flow voids arenormal. Orbits are normal. Paranasal sinuses are clear. Mastoid air cells are clear. No suspicious osseous lesion. Impression: 1.No acute intracranial process.2.Parenchymal volume loss and chronic microvascular changes. Signed: Joe López MDReport Verified Date/Time: 07/02/2021 14:13:50 [id number] 13:41:00 Test Item Value Reference Range Interpretation Comments PARTIAL THROMBOPLASTIN TIME 86.7 seconds 22.5-36.0 H (BEAKER) (test code = 760) CBC (HEMOGRAM ONLY)2021-07-02 13:32:41 Test Item Value Reference Range Interpretation Comments WHITE BLOOD CELL COUNT (BEAKER) 8.6 K/ L 3.5-10.5 (test code = 775) RED BLOOD CELL COUNT (BEAKER) 2.54 M/ L 4.63-6.08 L (test code = 761) HEMOGLOBIN (BEAKER) (test code = 7.4 GM/DL 13.7-17.5 L 410) HEMATOCRIT (BEAKER) (test code = 23.7 % 40.1-51.0 L 411) MEAN CORPUSCULAR VOLUME (BEAKER) 93.3 fL 79.0-92.2 H (test code = 753) MEAN CORPUSCULAR HEMOGLOBIN 29.1 pg 25.7-32.2 (BEAKER) (test code = 751) MEAN CORPUSCULAR HEMOGLOBIN CONC 31.2 GM/DL 32.3-36.5 L (BEAKER) (test code = 752) RED CELL DISTRIBUTION WIDTH 19.7 % 11.6-14.4 H (BEAKER) (test code = 412) PLATELET COUNT (BEAKER) (test 123 K/CU MM 150-450 L code = 756) MEAN PLATELET VOLUME (BEAKER) 12.4 fL 9.4-12.4 (test code = 754) NUCLEATED RED BLOOD CELLS 0 /100 WBC 0-0 (BEAKER) (test code = 413) BLOOD [id number] 13:21:01 Test Item Value Reference Range Interpretation Comments CULTURE (BEAKER) SHIRIN A From Aer[employer] Bottle (test code = 1095) GLABRATA Only Cand nehemiah glabrata 5-Flurocytosine See_Comment S [Automated message] (test code = 237) The system which generated this result transmitted ref erence range: Suscepti ble 0-4 , Intermedi ate <0 or >4 , Resista nt >16 . The reference range was not used to interpret this result as normal/abnor mal. Amphotericin B See_Comment [Automated m essage] (test code = 136) The system which generated this result transmitted ref erence range: Suscepti ble >0-0 , No Interpretations Established <=0 or >0 . The reference range was not used to interpret this result as normal/abnor mal. Caspofungin acetate See_Comment S [Automa oziel message] (test code = 141) The system which generated this result transmitted ref erence range: Suscepti ble 0-0.12 , Non-susceptible <0 or >.12 , Resistan t . The reference r cheri was not used to interpret this result as normal/abnor mal. Fluconazole (test See_Comment [Automate d message] code = 143) The system Mobi generated this result transmitted ref erence range: Suscepti ble 0-0 , Dose Depe ndent Susceptible <0 or >0 , Resi. The ref erence range was not u sed to interpret this result as normal/abnor mal. Itraconazole (test See_Comment [Automat ed message] code = 146) The system Mobi generated this result transmitted ref erence range: Suscepti ble 0-0.125 , Dose Dependent Susce ptible <0 or >.125. Th e reference range was not used to int erpret this result as normal/abnormal . Micafungin (test See_Comment S [Automated message] code = 148) The system Mobi generated this result transmitted ref erence range: Suscepti ble 0-0.06 , Non-susceptible <0 or >.06 , Resistan t . The reference r cheri was not used to interpret this result as normal/abnor mal. Posaconazole (test See_Comment [Automat ed message] code = 152) The system Mobi generated this result transmitted ref erence range: Suscepti ble >0-0 , No Interpretations Established <=0 or >0 . The reference range was not used to interpret this result as normal/abnor mal. Voriconazole (test See_Comment [Automat ed message] code = 153) The system Mobi generated this result transmitted ref erence range: Suscepti ble >0-0 , Dose Dep endent Susceptible <=0 or >0 , No. The refer ence range was not u sed to interpret this result as normal/abnor mal. GRAM STAIN RESULT From aerobic (BEAKER) (test code bottle only: = 1123) yeast POCT-GLUCOSE [id number] 13:16:41 Test Item Value Reference Range Interpretation Comments POC-GLUCOSE METER 97 mg/dL 70-110 : TESTED A T [facility] 6720 (BEAKER) (test code = BREEZY Moss [facility], 1538) [id number]: Sustainability Specialist/Techni salma ID = [id number] for ALISHA MARIN [id number] 07:00:41 Test Item Value Reference Range Interpretation Comments PARTIAL THROMBOPLASTIN TIME 69.1 seconds 22.5-36.0 H (BEAKER) (test code = 760) SPUTUM CULTURE + GRAM [id number] 06:19:26 Test Item Value Reference Interpretation Comments Range CULTURE (BEAKER) METHICILLIN A 3+ Methicil antionette (test code = 1095) RESISTANT resistant STAPHYLOCOCCUS Staphylococcu s AUREUS aureus Clindamycin (test R code = 10) Erythromycin (test R code = 4) Linezolid (test code S = 40) Nitrofurantoin (test S code = 23) Oxacillin (test code R = 14) Rifampin (test code = S 43) Tetracycline (test R code = 2) Trimethoprim + S Sulfamethoxazole (test code = 47) Vancomycin (test code S = 13) GRAM STAIN RESULT <1+ WBCs (BEAKER) (test code = 1123) GRAM STAIN RESULT 5-10 epithelial (BEAKER) (test code = cells 287676) GRAM STAIN RESULT <1+ gram negative (BEAKER) (test code = rods 971319) GRAM STAIN RESULT <1+ gram positive (BEAKER) (test code = cocci in clusters [id number]) 2+ yeastNo Normal respiratory ignacia presentPOCT-GLUCOSE [id number] 06:01:48 Test Item Value Reference Range Interpretation Comments POC-GLUCOSE METER 151 mg/dL 70-110 H : TESTED A T [facility] 6720 (BEAKER) (test code = BREEZY Moss [facility], 1538) [id number]: Sustainability Specialist/Techni salma ID = [id number] for ALISHA RAMIREZ [id number] 05:34:54 Test Item Value Reference Range Interpretation Comments PARTIAL THROMBOPLASTIN TIME 132.9 seconds 22.5-36.0 H (BEAKER) (test code = 760) RAD, CHEST, 1 VIEW, NON [id number] 02:42:00Reason for exam:- >intubatedShould this be performed at the bedside?->Yes [facility] 1950 Sex: MFINAL REPORT RAD, CHEST, 1 VIEW, NON DEPT INDICATION: intubated COMPARISON: Priorday's exam FINDINGS: Portable frontal view of the chest. IMPRESSION: Support Lines: No significant change. Lungs and pleura: Unchanged bilateral interstitial opacities. No pneumothorax.Heart and mediastinum: Stable contours. Additional findings: None. Signed: Maximilian Ulloa MDReport Verified Date/Time: 07/02/2021 02:42:28 [id number] 02:00:47 Test Item Value Reference Range Interpretation Comments PARTIAL THROMBOPLASTIN TIME > seconds 22.5-36.0 HH (BEAKER) (test code = 760) HEPATIC FUNCTION [id number] 01:39:34 Test Item Value Reference Range Interpretation Comments TOTAL PROTEIN (BEAKER) (test code = 5.1 gm/dL 6.0-8.3 L 770) ALBUMIN (BEAKER) (test code = 1145) 2.4 g/dL 3.5-5.0 L BILIRUBIN TOTAL (BEAKER) (test code 0.3 mg/dL 0.2-1.2 = 377) BILIRUBIN DIRECT (BEAKER) (test 0.2 mg/dL 0.1-0.5 code = 706) ALKALINE PHOSPHATASE (BEAKER) (test 66 U/L 40-150 code = 346) AST (SGOT) (BEAKER) (test code = 26 U/L 5-34 353) ALT (SGPT) (BEAKER) (test code = 38 U/L 6-55 347) Sustainability Specialist ID - DBLACTATE DEHYDROGENASE (LDH)2021-07-02 01:39:34 Test Item Value Reference Range Interpretation Comments LACTATE DEHYDROGENASE (BEAKER) (test 210 U/L 125-220 code = 635) Sustainability Specialist ID - [id number] 01:39:33 Test Item Value Reference Range Interpretation Comments PHOSPHORUS (BEAKER) (test code = 3.9 mg/dL 2.3-4.7 604) Sustainability Specialist ID - [id number] 01:39:32 Test Item Value Reference Range Interpretation Comments MAGNESIUM (BEAKER) (test code = 2.0 mg/dL 1.6-2.6 627) Sustainability Specialist ID - DBBASIC METABOLIC [id number] 01:39:31 Test Item Value Reference Range Interpretation Comments SODIUM (BEAKER) 141 meq/L 136-145 (test code = 381) POTASSIUM (BEAKER) 4.0 meq/L 3.5-5.1 (test code = 379) CHLORIDE (BEAKER) 108 meq/L 98-107 H (test code = 382) CO2 (BEAKER) (test 25 meq/L 22-29 code = 355) BLOOD UREA NITROGEN 61 mg/dL 7-21 H (BEAKER) (test code = 354) CREATININE (BEAKER) 1.20 mg/dL 0.57-1.25 (test code = 358) GLUCOSE RANDOM 221 mg/dL 70-105 H (BEAKER) (test code = 652) CALCIUM (BEAKER) 8.7 mg/dL 8.4-10.2 (test code = 697) EGFR (BEAKER) (test 60 mL/min/1.73 ESTIMA OZIEL GFR IS code = 1092) sq m NOT ACCURATE CREATININE CLEARANCE IN PREDICTING GLOMERULAR FILTRATION RATE . ESTIMATED GFR I S NOT APPLICABLE FOR DIALYSIS PATIEN TS. Sustainability Specialist ID - DBCBC W/PLT COUNT & AUTO [id number] 01:24:15 Test Item Value Reference Range Interpretation Comments WHITE BLOOD CELL COUNT (BEAKER) 7.9 K/ L 3.5-10.5 (test code = 775) RED BLOOD CELL COUNT (BEAKER) 2.48 M/ L 4.63-6.08 L (test code = 761) HEMOGLOBIN (BEAKER) (test code = 7.1 GM/DL 13.7-17.5 L 410) HEMATOCRIT (BEAKER) (test code = 23.6 % 40.1-51.0 L 411) MEAN CORPUSCULAR VOLUME (BEAKER) 95.2 fL 79.0-92.2 H (test code = 753) MEAN CORPUSCULAR HEMOGLOBIN 28.6 pg 25.7-32.2 (BEAKER) (test code = 751) MEAN CORPUSCULAR HEMOGLOBIN CONC 30.1 GM/DL 32.3-36.5 L (BEAKER) (test code = 752) RED CELL DISTRIBUTION WIDTH 19.5 % 11.6-14.4 H (BEAKER) (test code = 412) PLATELET COUNT (BEAKER) (test 104 K/CU MM 150-450 L code = 756) MEAN PLATELET VOLUME (BEAKER) 12.3 fL 9.4-12.4 (test code = 754) NUCLEATED RED BLOOD CELLS 0 /100 WBC 0-0 (BEAKER) (test code = 413) NEUTROPHILS RELATIVE PERCENT 80 % (BEAKER) (test code = 429) LYMPHOCYTES RELATIVE PERCENT 12 % (BEAKER) (test code = 430) MONOCYTES RELATIVE PERCENT 6 % (BEAKER) (test code = 431) EOSINOPHILS RELATIVE PERCENT 2 % (BEAKER) (test code = 432) BASOPHILS RELATIVE PERCENT 0 % (BEAKER) (test code = 437) NEUTROPHILS ABSOLUTE COUNT 6.29 K/ L 1.78-5.38 H (BEAKER) (test code = 670) LYMPHOCYTES ABSOLUTE COUNT 0.96 K/ L 1.32-3.57 L (BEAKER) (test code = 414) MONOCYTES ABSOLUTE COUNT (BEAKER) 0.44 K/ L 0.30-0.82 (test code = 415) EOSINOPHILS ABSOLUTE COUNT 0.17 K/ L 0.04-0.54 (BEAKER) (test code = 416) BASOPHILS ABSOLUTE COUNT (BEAKER) 0.01 K/ L 0.01-0.08 (test code = 417) IMMATURE GRANULOCYTES-RELATIVE 1 % 0-1 PERCENT (BEAKER) (test code = 2801) BLOOD GAS, [id number] 01:22:03 Test Item Value Reference Range Interpretation Comments PH ARTERIAL (BEAKER) (test code = 7.45 7.35-7.45 383) PCO2 ARTERIAL (BEAKER) (test code 39 mm Hg 35-45 = 384) PO2 ARTERIAL (BEAKER) (test code = 155 mm Hg 80-90 H 385) O2 SATURATION ARTERIAL (BEAKER) 99.1 % 96.0-97.0 H (test code = 386) HCO3 ARTERIAL (BEAKER) (test code 26 mmol/L 21-29 = 388) BASE EXCESS ARTERIAL (BEAKER) 2.1 mmol/L -2.0-3.0 (test code = 387) PATIENT TEMPERATURE (BEAKER) (test 37.5 code = 1818) FIO2 (BEAKER) (test code = 1819) 30.0 POCT-GLUCOSE [id number] 01:02:13 Test Item Value Reference Range Interpretation Comments POC-GLUCOSE METER 170 mg/dL 70-110 H : [facility] ([facility], = 1538) [id number]: Sustainability Specialist/Techni salma ID = [id number] for CARLOS ELLISON BASIC METABOLIC [id number] 22:17:48 Test Item Value Reference Range Interpretation Comments SODIUM (BEAKER) 142 meq/L 136-145 (test code = 381) POTASSIUM (BEAKER) 4.1 meq/L 3.5-5.1 (test code = 379) CHLORIDE (BEAKER) 108 meq/L 98-107 H (test code = 382) CO2 (BEAKER) (test 26 meq/L 22-29 code = 355) BLOOD UREA NITROGEN 58 mg/dL 7-21 H (BEAKER) (test code = 354) CREATININE (BEAKER) 1.13 mg/dL 0.57-1.25 (test code = 358) GLUCOSE RANDOM 229 mg/dL 70-105 H (BEAKER) (test code = 652) CALCIUM (BEAKER) 9.0 mg/dL 8.4-10.2 (test code = 697) EGFR (BEAKER) (test 64 mL/min/1.73 ESTIMA OZIEL GFR IS code = 1092) sq m NOT ACCURATE CREATININE CLEARANCE IN PREDICTING GLOMERULAR FILTRATION RATE . ESTIMATED GFR I S NOT APPLICABLE FOR DIALYSIS PATIEN TS. Sustainability Specialist ID - DBBLOOD [id number] 22:00:44 Test Item Value Reference Range Interpretation Comments CULTURE (BEAKER) (test No growth in 5 days code = 1095) [id number] 18:04:14 Test Item Value Reference Range Interpretation Comments PARTIAL THROMBOPLASTIN TIME 34.2 seconds 22.5-36.0 (BEAKER) (test code = 760) POCT-GLUCOSE [id number] 16:55:46 Test Item Value Reference Range Interpretation Comments POC-GLUCOSE METER 117 mg/dL 70-110 H : TESTED A T [facility] 6720 (BEAKER) (test code = [place], 1538) [id number]: Sustainability Specialist/Techni salma ID = [id number] for IB RAHIM, SERKALEM [id number] 14:06:45 Test Item Value Reference Range Interpretation Comments MAGNESIUM (BEAKER) (test code = 2.3 mg/dL 1.6-2.6 627) Sustainability Specialist ID - JAKE MBASIC METABOLIC [id number] 14:06:44 Test Item Value Reference Range Interpretation Comments SODIUM (BEAKER) 143 meq/L 136-145 (test code = 381) POTASSIUM (BEAKER) 4.1 meq/L 3.5-5.1 (test code = 379) CHLORIDE (BEAKER) 110 meq/L 98-107 H (test code = 382) CO2 (BEAKER) (test 26 meq/L 22-29 code = 355) BLOOD UREA NITROGEN 60 mg/dL 7-21 H (BEAKER) (test code = 354) CREATININE (BEAKER) 1.19 mg/dL 0.57-1.25 (test code = 358) GLUCOSE RANDOM 182 mg/dL 70-105 H (BEAKER) (test code = 652) CALCIUM (BEAKER) 9.1 mg/dL 8.4-10.2 (test code = 697) EGFR (BEAKER) (test 60 mL/min/1.73 ESTIMA OZIEL GFR IS code = 1092) sq m NOT ACCURATE CREATININE CLEARANCE IN PREDICTING GLOMERULAR FILTRATION RATE . ESTIMATED GFR I S NOT APPLICABLE FOR DIALYSIS PATIEN TS. Sustainability Specialist ID - JAKE MCBC W/PLT COUNT & AUTO [id number] 13:46:22 Test Item Value Reference Range Interpretation Comments WHITE BLOOD CELL COUNT (BEAKER) 9.1 K/ L 3.5-10.5 (test code = 775) RED BLOOD CELL COUNT (BEAKER) 2.79 M/ L 4.63-6.08 L (test code = 761) HEMOGLOBIN (BEAKER) (test code = 7.8 GM/DL 13.7-17.5 L 410) HEMATOCRIT (BEAKER) (test code = 26.0 % 40.1-51.0 L 411) MEAN CORPUSCULAR VOLUME (BEAKER) 93.2 fL 79.0-92.2 H (test code = 753) MEAN CORPUSCULAR HEMOGLOBIN 28.0 pg 25.7-32.2 (BEAKER) (test code = 751) MEAN CORPUSCULAR HEMOGLOBIN CONC 30.0 GM/DL 32.3-36.5 L (BEAKER) (test code = 752) RED CELL DISTRIBUTION WIDTH 19.2 % 11.6-14.4 H (BEAKER) (test code = 412) PLATELET COUNT (BEAKER) (test 106 K/CU MM 150-450 L code = 756) MEAN PLATELET VOLUME (BEAKER) 11.8 fL 9.4-12.4 (test code = 754) NUCLEATED RED BLOOD CELLS 0 /100 WBC 0-0 (BEAKER) (test code = 413) NEUTROPHILS RELATIVE PERCENT 80 % (BEAKER) (test code = 429) LYMPHOCYTES RELATIVE PERCENT 11 % (BEAKER) (test code = 430) MONOCYTES RELATIVE PERCENT 6 % (BEAKER) (test code = 431) EOSINOPHILS RELATIVE PERCENT 3 % (BEAKER) (test code = 432) BASOPHILS RELATIVE PERCENT 0 % (BEAKER) (test code = 437) NEUTROPHILS ABSOLUTE COUNT 7.30 K/ L 1.78-5.38 H (BEAKER) (test code = 670) LYMPHOCYTES ABSOLUTE COUNT 0.95 K/ L 1.32-3.57 L (BEAKER) (test code = 414) MONOCYTES ABSOLUTE COUNT (BEAKER) 0.52 K/ L 0.30-0.82 (test code = 415) EOSINOPHILS ABSOLUTE COUNT 0.26 K/ L 0.04-0.54 (BEAKER) (test code = 416) BASOPHILS ABSOLUTE COUNT (BEAKER) 0.00 K/ L 0.01-0.08 L (test code = 417) IMMATURE GRANULOCYTES-RELATIVE 1 % 0-1 PERCENT (BEAKER) (test code = 2801) POCT-GLUCOSE [id number] 11:13:41 Test Item Value Reference Range Interpretation Comments POC-GLUCOSE METER 193 mg/dL 70-110 H : [facility] (GALE) (test code = [place], 1538) [id number]: Sustainability Specialist/Techni salma ID = [id number] for JAN JENKINS [id number] 10:15:46 Test Item Value Reference Range Interpretation Comments PARTIAL THROMBOPLASTIN TIME 29.2 seconds 22.5-36.0 (GALE) (test code = 760) RAD, CHEST, 1 VIEW, NON [id number] 07:21:00Reason for exam:- >intubatedShould this be performed at the bedside?->Yes [facility] 1950 Sex: MFINAL REPORT RAD, CHEST, 1 VIEW, NON DEPT INDICATION: intubated COMPARISON: Priorday's exam FINDINGS: Portable frontal view of the chest. IMPRESSION: Support Lines: ET tube tip is 3cm above the alexia. NG tube descends below the diaphragm. Lungs and pleura: Increased mild diffuse interstitial thickening, representing singly or in combination, interstitial edema and/or pneumonitis. No significant pneumothorax. Heart and mediastinum: Stable contours. Additional findings: None. Signed: Luke Parikh Verified Date/Time: 07/01/2021 07:21:11 POCT-GLUCOSE [id number] 07:07:49 Test Item Value Reference Range Interpretation Comments POC-GLUCOSE METER 165 mg/dL 70-110 H : TESTED A T [facility] 6720 (BEAKER) (test code = [place], 1538) [address]: Sustainability Specialist/Techni salma ID = [id number] for Franchesca Reyna [id number] 02:09:10 Test Item Value Reference Range Interpretation Comments PARTIAL THROMBOPLASTIN TIME 27.4 seconds 22.5-36.0 (BEAKER) (test code = 760) LACTATE DEHYDROGENASE (LDH)2021-07-01 02:02:53 Test Item Value Reference Range Interpretation Comments LACTATE DEHYDROGENASE (BEAKER) (test 287 U/L 125-220 H code = 635) Sustainability Specialist ID - JULIETTE LHEPATIC FUNCTION [id number] 02:02:52 Test Item Value Reference Range Interpretation Comments TOTAL PROTEIN (BEAKER) (test code = 5.7 gm/dL 6.0-8.3 L 770) ALBUMIN (BEAKER) (test code = 1145) 2.6 g/dL 3.5-5.0 L BILIRUBIN TOTAL (BEAKER) (test code 0.4 mg/dL 0.2-1.2 = 377) BILIRUBIN DIRECT (BEAKER) (test 0.2 mg/dL 0.1-0.5 code = 706) ALKALINE PHOSPHATASE (BEAKER) (test 69 U/L 40-150 code = 346) AST (SGOT) (BEAKER) (test code = 39 U/L 5-34 H 353) ALT (SGPT) (BEAKER) (test code = 46 U/L 6-55 347) Sustainability Specialist ID - JULIETTE [id number] 02:02:51 Test Item Value Reference Range Interpretation Comments MAGNESIUM (BEAKER) (test code = 2.0 mg/dL 1.6-2.6 627) Sustainability Specialist ID - JULIETTE [id number] 02:02:51 Test Item Value Reference Range Interpretation Comments PHOSPHORUS (BEAKER) (test code = 4.2 mg/dL 2.3-4.7 604) Sustainability Specialist ID - JULIETTE LBASIC METABOLIC [id number] 02:02:50 Test Item Value Reference Range Interpretation Comments SODIUM (BEAKER) 144 meq/L 136-145 (test code = 381) POTASSIUM (BEAKER) 3.9 meq/L 3.5-5.1 (test code = 379) CHLORIDE (BEAKER) 110 meq/L 98-107 H (test code = 382) CO2 (BEAKER) (test 25 meq/L 22-29 code = 355) BLOOD UREA NITROGEN 59 mg/dL 7-21 H (BEAKER) (test code = 354) CREATININE (BEAKER) 1.28 mg/dL 0.57-1.25 H (test code = 358) GLUCOSE RANDOM 262 mg/dL 70-105 H (BEAKER) (test code = 652) CALCIUM (BEAKER) 9.0 mg/dL 8.4-10.2 (test code = 697) EGFR (BEAKER) (test 55 mL/min/1.73 ESTIMA OZIEL GFR IS code = 1092) sq m NOT ACCURATE CREATININE CLEARANCE IN PREDICTING GLOMERULAR FILTRATION RATE . ESTIMATED GFR I S NOT APPLICABLE FOR DIALYSIS PATIEN TS. Sustainability Specialist ID - PIAYA LCBC W/PLT COUNT & AUTO [id number] 01:50:01 Test Item Value Reference Range Interpretation Comments WHITE BLOOD CELL COUNT (BEAKER) 8.9 K/ L 3.5-10.5 (test code = 775) RED BLOOD CELL COUNT (BEAKER) 2.82 M/ L 4.63-6.08 L (test code = 761) HEMOGLOBIN (BEAKER) (test code = 8.0 GM/DL 13.7-17.5 L 410) HEMATOCRIT (BEAKER) (test code = 26.1 % 40.1-51.0 L 411) MEAN CORPUSCULAR VOLUME (BEAKER) 92.6 fL 79.0-92.2 H (test code = 753) MEAN CORPUSCULAR HEMOGLOBIN 28.4 pg 25.7-32.2 (BEAKER) (test code = 751) MEAN CORPUSCULAR HEMOGLOBIN CONC 30.7 GM/DL 32.3-36.5 L (BEAKER) (test code = 752) RED CELL DISTRIBUTION WIDTH 19.2 % 11.6-14.4 H (BEAKER) (test code = 412) PLATELET COUNT (BEAKER) (test 115 K/CU MM 150-450 L code = 756) MEAN PLATELET VOLUME (BEAKER) 12.1 fL 9.4-12.4 (test code = 754) NUCLEATED RED BLOOD CELLS 0 /100 WBC 0-0 (BEAKER) (test code = 413) NEUTROPHILS RELATIVE PERCENT 81 % (BEAKER) (test code = 429) LYMPHOCYTES RELATIVE PERCENT 12 % (BEAKER) (test code = 430) MONOCYTES RELATIVE PERCENT 5 % (BEAKER) (test code = 431) EOSINOPHILS RELATIVE PERCENT 2 % (BEAKER) (test code = 432) BASOPHILS RELATIVE PERCENT 0 % (BEAKER) (test code = 437) NEUTROPHILS ABSOLUTE COUNT 7.22 K/ L 1.78-5.38 H (BEAKER) (test code = 670) LYMPHOCYTES ABSOLUTE COUNT 1.03 K/ L 1.32-3.57 L (BEAKER) (test code = 414) MONOCYTES ABSOLUTE COUNT (BEAKER) 0.46 K/ L 0.30-0.82 (test code = 415) EOSINOPHILS ABSOLUTE COUNT 0.15 K/ L 0.04-0.54 (BEAKER) (test code = 416) BASOPHILS ABSOLUTE COUNT (BEAKER) 0.00 K/ L 0.01-0.08 L (test code = 417) IMMATURE GRANULOCYTES-RELATIVE 1 % 0-1 PERCENT (BEAKER) (test code = 2801) BLOOD GAS, [id number] 01:48:18 Test Item Value Reference Range Interpretation Comments PH ARTERIAL (BEAKER) (test code = 7.45 7.35-7.45 383) PCO2 ARTERIAL (BEAKER) (test code 38 mm Hg 35-45 = 384) PO2 ARTERIAL (BEAKER) (test code = 155 mm Hg 80-90 H 385) O2 SATURATION ARTERIAL (BEAKER) 99.1 % 96.0-97.0 H (test code = 386) HCO3 ARTERIAL (BEAKER) (test code 26 mmol/L 21-29 = 388) BASE EXCESS ARTERIAL (BEAKER) 2.0 mmol/L -2.0-3.0 (test code = 387) PATIENT TEMPERATURE (BEAKER) (test 36.5 code = 1818) FIO2 (BEAKER) (test code = 1819) 30.0 POCT-GLUCOSE [id number] 23:53:08 Test Item Value Reference Range Interpretation Comments POC-GLUCOSE METER 221 mg/dL 70-110 H : TESTED A T [facility] 6720 (BEAKER) (test code [facility], = 1538) [address]: Sustainability Specialist/Techni salma ID = [id number] for SUGU , SHEENAMOL POCT-GLUCOSE [id number] 21:19:37 Test Item Value Reference Range Interpretation Comments POC-GLUCOSE METER 206 mg/dL 70-110 H : TESTED A T [facility] 6720 (BEAKER) (test code = [place], 1538) [address]: Sustainability Specialist/Techni salma ID = [id number] for Franchesca Reyna [id number] 19:23:34 Test Item Value Reference Range Interpretation Comments PARTIAL THROMBOPLASTIN TIME 30.3 seconds 22.5-36.0 (BEAKER) (test code = 760) Aspergillus galactomannan [id number] 19:19:10 Test Item Value Reference Interpretation Comments Range Aspergillus <0.50 Index Value (test code = 2645) Aspergillus NOT DETECTED REFERENCE RANGE : <0.50, Antigen (test NOT DETECTED A n Index code = 24640-1) <0.50 is con sidered to be negative.An Index >=0.50 is consi dered to be positive. A positive result for derik ents being treated withpiperacilli n-tazobac batista and other beta-lactamanti biotics such as amoxicillin-cla vulanate may kiesha false p ositive due to cross re activity and shouldbe vi ewed in conjunction wit h all clinical findings.Positi ve results with th is assay has also beenre ported in patients infect ed with Penicilliummarn effei and Cryptococcus. BANDAR (test code = Performing Lab BANDAR) *QDID [facility] [address] [address] Ashish Torres MD, PhD [id number] 18:32:05 Test Item Value Reference Range Interpretation Comments PARTIAL THROMBOPLASTIN TIME 28.3 seconds 22.5-36.0 (BEAKER) (test code = 760) [id number] 16:45:10 Test Item Value Reference Range Interpretation Comments MAGNESIUM (BEAKER) (test code = 2.1 mg/dL 1.6-2.6 627) Sustainability Specialist ID - emilio wBASIC METABOLIC [id number] 16:45:09 Test Item Value Reference Range Interpretation Comments SODIUM (BEAKER) 145 meq/L 136-145 (test code = 381) POTASSIUM (BEAKER) 4.3 meq/L 3.5-5.1 (test code = 379) CHLORIDE (BEAKER) 110 meq/L 98-107 H (test code = 382) CO2 (BEAKER) (test 29 meq/L 22-29 code = 355) BLOOD UREA NITROGEN 57 mg/dL 7-21 H (BEAKER) (test code = 354) CREATININE (BEAKER) 1.32 mg/dL 0.57-1.25 H (test code = 358) GLUCOSE RANDOM 170 mg/dL 70-105 H (BEAKER) (test code = 652) CALCIUM (BEAKER) 8.6 mg/dL 8.4-10.2 (test code = 697) EGFR (BEAKER) (test 53 mL/min/1.73 ESTIMA OZIEL GFR IS code = 1092) sq m NOT ACCURATE CREATININE CLEARANCE IN PREDICTING GLOMERULAR FILTRATION RATE . ESTIMATED GFR I S NOT APPLICABLE FOR DIALYSIS PATIEN TS. Sustainability Specialist ID - emilio wCBC W/PLT COUNT & AUTO [id number] 16:23:03 Test Item Value Reference Range Interpretation Comments WHITE BLOOD CELL COUNT (BEAKER) 9.2 K/ L 3.5-10.5 (test code = 775) RED BLOOD CELL COUNT (BEAKER) 2.67 M/ L 4.63-6.08 L (test code = 761) HEMOGLOBIN (BEAKER) (test code = 7.5 GM/DL 13.7-17.5 L 410) HEMATOCRIT (BEAKER) (test code = 25.1 % 40.1-51.0 L 411) MEAN CORPUSCULAR VOLUME (BEAKER) 94.0 fL 79.0-92.2 H (test code = 753) MEAN CORPUSCULAR HEMOGLOBIN 28.1 pg 25.7-32.2 (BEAKER) (test code = 751) MEAN CORPUSCULAR HEMOGLOBIN CONC 29.9 GM/DL 32.3-36.5 L (BEAKER) (test code = 752) RED CELL DISTRIBUTION WIDTH 19.3 % 11.6-14.4 H (BEAKER) (test code = 412) PLATELET COUNT (BEAKER) (test 103 K/CU MM 150-450 L code = 756) MEAN PLATELET VOLUME (BEAKER) 11.8 fL 9.4-12.4 (test code = 754) NUCLEATED RED BLOOD CELLS 0 /100 WBC 0-0 (BEAKER) (test code = 413) NEUTROPHILS RELATIVE PERCENT 77 % (BEAKER) (test code = 429) LYMPHOCYTES RELATIVE PERCENT 15 % (BEAKER) (test code = 430) MONOCYTES RELATIVE PERCENT 6 % (BEAKER) (test code = 431) EOSINOPHILS RELATIVE PERCENT 1 % (BEAKER) (test code = 432) BASOPHILS RELATIVE PERCENT 0 % (BEAKER) (test code = 437) NEUTROPHILS ABSOLUTE COUNT 7.07 K/ L 1.78-5.38 H (BEAKER) (test code = 670) LYMPHOCYTES ABSOLUTE COUNT 1.38 K/ L 1.32-3.57 (BEAKER) (test code = 414) MONOCYTES ABSOLUTE COUNT (BEAKER) 0.56 K/ L 0.30-0.82 (test code = 415) EOSINOPHILS ABSOLUTE COUNT 0.10 K/ L 0.04-0.54 (BEAKER) (test code = 416) BASOPHILS ABSOLUTE COUNT (BEAKER) 0.01 K/ L 0.01-0.08 (test code = 417) IMMATURE GRANULOCYTES-RELATIVE 1 % 0-1 PERCENT (BEAKER) (test code = 2801) POCT-GLUCOSE [id number] 15:58:54 Test Item Value Reference Range Interpretation Comments POC-GLUCOSE METER 133 mg/dL 70-110 H : TESTED A T [facility] 6720 (BEAKER) (test code = [place], 1538) [address]: Sustainability Specialist/Techni salma ID = [id number] for JAN JENKINS BASIC METABOLIC [id number] 12:13:12 Test Item Value Reference Range Interpretation Comments SODIUM (BEAKER) 143 meq/L 136-145 (test code = 381) POTASSIUM (BEAKER) 3.5 meq/L 3.5-5.1 (test code = 379) CHLORIDE (BEAKER) 108 meq/L 98-107 H (test code = 382) CO2 (BEAKER) (test 27 meq/L 22-29 code = 355) BLOOD UREA NITROGEN 58 mg/dL 7-21 H (BEAKER) (test code = 354) CREATININE (BEAKER) 1.46 mg/dL 0.57-1.25 H (test code = 358) GLUCOSE RANDOM 157 mg/dL 70-105 H (BEAKER) (test code = 652) CALCIUM (BEAKER) 8.7 mg/dL 8.4-10.2 (test code = 697) EGFR (GALE) (test 47 mL/min/1.73 ESTIMA OZIEL GFR IS code = 1092) sq m NOT ACCURATE CREATININE CLEARANCE IN PREDICTING GLOMERULAR FILTRATION RATE . ESTIMATED GFR I S NOT APPLICABLE FOR DIALYSIS PATIEN TS. Sustainability Specialist ID - JULIETTE [id number] 12:03:26 Test Item Value Reference Range Interpretation Comments PARTIAL THROMBOPLASTIN TIME 75.4 seconds 22.5-36.0 H (GALE) (test code = 760) POCT-GLUCOSE [id number] 11:57:24 Test Item Value Reference Range Interpretation Comments POC-GLUCOSE METER 140 mg/dL 70-110 H : TESTED A T [facility] 6720 (GALE) (test code = [place], 1538) [address]: Sustainability Specialist/Techni salma ID = [id number] for GO NZALEZ (V), TIMO Venous doppler legs [id number] 09:24:37Ejection FractionSLEH ECHO HEARTLAB MKCKESSON CPACHI [facility] NON DEPT 2021-06-30 07:11:00Reason for exam:->intubatedShould this be performed at the bedside?->YesCONTRA [facility]Name[facility] : 1950 Sex: MFINAL REPORT Exam: RAD, CHEST, 1 VIEW, NON DEPTDate: 06/30/2021 7:08 AM Indication:intubatedComparison: 06/29/2021 FINDINGS: Lines/Tubes/Devices: Endotracheal tube in place with distaltip measuring 5.2 cm above the alexia. Status post sternotomy. Enteric tube in place with distal tipand side port seen below the GE junction. Left midline in place, distal tip terminating in the left axilla. Overlying EKG leads. Lungs/pleura:Borderline lung volumes. Improved fluid status, mild persistent vascular prominence. Improved right base aeration. Retrocardiac airspace opacity. No pleural effusion. No pneumothorax. Heart/Mediastinum:Unchanged Bones/Soft Tissues: No acute osseous abnormality. Upper abdomen: Unremarkable. IMPRESSION:Improved fluid status, mild persistent vascular prominence.Improved right base aeration.Retrocardiac airspace opacity, likely atelectasis. Signed: Wang Sosa Verified Date/Time: 06/30/2021 07:11:07 Reading Location: [facility] Radiology Reading Room POCT-GLUCOSE [id number] 06:22:47 Test Item Value Reference Range Interpretation Comments POC-GLUCOSE METER 114 mg/dL 70-110 H : [facility] ([facility] (test code [facility], = 1538) [address]: Sustainability Specialist/Techni salma ID = [id number] for SUGU , SHEENAMOL [id number] 04:02:03 Test Item Value Reference Range Interpretation Comments PARTIAL THROMBOPLASTIN TIME 104.3 seconds 22.5-36.0 H (BEAKER) (test code = 760) LACTATE DEHYDROGENASE (LDH)2021-06-30 03:55:53 Test Item Value Reference Range Interpretation Comments LACTATE DEHYDROGENASE (BEAKER) (test 238 U/L 125-220 H code = 635) Sustainability Specialist ID - EMILIO [id number] 03:55:52 Test Item Value Reference Range Interpretation Comments PHOSPHORUS (BEAKER) (test code = 3.7 mg/dL 2.3-4.7 604) Sustainability Specialist ID - EMILIO WHEPATIC FUNCTION [id number] 03:55:52 Test Item Value Reference Range Interpretation Comments TOTAL PROTEIN (BEAKER) (test code = 5.3 gm/dL 6.0-8.3 L 770) ALBUMIN (BEAKER) (test code = 1145) 2.6 g/dL 3.5-5.0 L BILIRUBIN TOTAL (BEAKER) (test code 0.4 mg/dL 0.2-1.2 = 377) BILIRUBIN DIRECT (BEAKER) (test 0.2 mg/dL 0.1-0.5 code = 706) ALKALINE PHOSPHATASE (BEAKER) (test 69 U/L 40-150 code = 346) AST (SGOT) (BEAKER) (test code = 41 U/L 5-34 H 353) ALT (SGPT) (BEAKER) (test code = 44 U/L 6-55 347) Sustainability Specialist ID Cory KRISHNAMURTHY [id number] 03:55:51 Test Item Value Reference Range Interpretation Comments MAGNESIUM (BEAKER) (test code = 2.1 mg/dL 1.6-2.6 627) Sustainability Specialist ID Cory KRISHNAMURTHY WBASIC METABOLIC [id number] 03:55:50 Test Item Value Reference Range Interpretation Comments SODIUM (BEAKER) 147 meq/L 136-145 H (test code = 381) POTASSIUM (BEAKER) 3.7 meq/L 3.5-5.1 (test code = 379) CHLORIDE (BEAKER) 110 meq/L 98-107 H (test code = 382) CO2 (BEAKER) (test 27 meq/L 22-29 code = 355) BLOOD UREA NITROGEN 57 mg/dL 7-21 H (BEAKER) (test code = 354) CREATININE (BEAKER) 1.51 mg/dL 0.57-1.25 H (test code = 358) GLUCOSE RANDOM 116 mg/dL 70-105 H (BEAKER) (test code = 652) CALCIUM (BEAKER) 8.5 mg/dL 8.4-10.2 (test code = 697) EGFR (BEAKER) (test 46 mL/min/1.73 ESTIMA OZIEL GFR IS code = 1092) sq m NOT ACCURATE CREATININE CLEARANCE IN PREDICTING GLOMERULAR FILTRATION RATE . ESTIMATED GFR I S NOT APPLICABLE FOR DIALYSIS PATIEN TS. Sustainability Specialist ID Cory KRISHNAMURTHY WBLOOD GAS, [id number] 03:52:14 Test Item Value Reference Range Interpretation Comments PH ARTERIAL (BEAKER) (test code = 7.48 7.35-7.45 H 383) PCO2 ARTERIAL (BEAKER) (test code 40 mm Hg 35-45 = 384) PO2 ARTERIAL (BEAKER) (test code = 170 mm Hg 80-90 H 385) O2 SATURATION ARTERIAL (BEAKER) 99.2 % 96.0-97.0 H (test code = 386) HCO3 ARTERIAL (BEAKER) (test code 29 mmol/L 21-29 = 388) BASE EXCESS ARTERIAL (BEAKER) 5.1 mmol/L -2.0-3.0 H (test code = 387) PATIENT TEMPERATURE (BEAKER) (test 38.5 code = 1818) FIO2 (BEAKER) (test code = 1819) 30.0 LACTIC ACID, [id number] 03:47:06 Test Item Value Reference Range Interpretation Comments LACTATE BLOOD ARTERIAL (2) 0.6 mmol/L 0.5-2.2 (BEAKER) (test code = 2874) Sustainability Specialist BOOGIE KRISHNAMURTHY WCBC W/PLT COUNT & AUTO [id number] 03:37:22 Test Item Value Reference Range Interpretation Comments WHITE BLOOD CELL COUNT (BEAKER) 9.4 K/ L 3.5-10.5 (test code = 775) RED BLOOD CELL COUNT (BEAKER) 2.58 M/ L 4.63-6.08 L (test code = 761) HEMOGLOBIN (BEAKER) (test code = 7.1 GM/DL 13.7-17.5 L 410) HEMATOCRIT (BEAKER) (test code = 24.0 % 40.1-51.0 L 411) MEAN CORPUSCULAR VOLUME (BEAKER) 93.0 fL 79.0-92.2 H (test code = 753) MEAN CORPUSCULAR HEMOGLOBIN 27.5 pg 25.7-32.2 (BEAKER) (test code = 751) MEAN CORPUSCULAR HEMOGLOBIN CONC 29.6 GM/DL 32.3-36.5 L (BEAKER) (test code = 752) RED CELL DISTRIBUTION WIDTH 19.0 % 11.6-14.4 H (BEAKER) (test code = 412) PLATELET COUNT (BEAKER) (test 109 K/CU MM 150-450 L code = 756) MEAN PLATELET VOLUME (BEAKER) 11.9 fL 9.4-12.4 (test code = 754) NUCLEATED RED BLOOD CELLS 0 /100 WBC 0-0 (BEAKER) (test code = 413) NEUTROPHILS RELATIVE PERCENT 79 % (BEAKER) (test code = 429) LYMPHOCYTES RELATIVE PERCENT 15 % (BEAKER) (test code = 430) MONOCYTES RELATIVE PERCENT 6 % (BEAKER) (test code = 431) EOSINOPHILS RELATIVE PERCENT 1 % (BEAKER) (test code = 432) BASOPHILS RELATIVE PERCENT 0 % (BEAKER) (test code = 437) NEUTROPHILS ABSOLUTE COUNT 7.40 K/ L 1.78-5.38 H (BEAKER) (test code = 670) LYMPHOCYTES ABSOLUTE COUNT 1.37 K/ L 1.32-3.57 (BEAKER) (test code = 414) MONOCYTES ABSOLUTE COUNT (BEAKER) 0.52 K/ L 0.30-0.82 (test code = 415) EOSINOPHILS ABSOLUTE COUNT 0.06 K/ L 0.04-0.54 (BEAKER) (test code = 416) BASOPHILS ABSOLUTE COUNT (BEAKER) 0.00 K/ L 0.01-0.08 L (test code = 417) IMMATURE GRANULOCYTES-RELATIVE 1 % 0-1 PERCENT (BEAKER) (test code = 2801) U/S, ABDOMINAL, [id number] 02:36:00Abdomen limited area? Add comment if clarification is needed.->Gall BladderReason for exam:->patient septic; r/o biliary pathology [facility] 1950 Sex: MFINAL REPORT TECHNIQUE: Grayscale ultrasound of the right abdomen. INDICATION: patient septic; r/o biliary pathology. COMPARISON: None. FINDINGS: MIDLINE VASCULATURE: The visualized inferior vena cava is patent. Portal vein is patent. The maximum visualized aortic diameter is 2.3 cm. LIVER: Smooth liver contour. No focal lesions. The main portal vein measures 1.1 cm. BILIARY:Gallbla dder: No gallstones or sludge. No gallbladder wall thickening, pericholecystic fluid, or distention.Negative sonographic Song sign.Common bile duct measures 0.6 cm, within normal limits. No intrahepatic biliary ductal dilatation. PANCREAS: Incompletely visualized due to overlying bowel gas. PERITONEUM: No free fluid. RIGHT KIDNEY: Normal in size. No hydronephrosis. There is a cyst at the lower pole that is 1.7 x 1.5 x 2.4 cm. No sonographically evident solid mass lesion. IMPRESSION:No acute abnormality on ultrasound of the right upper quadrant. No biliary pathology. Signed: Amber Haskins MDReportVerified Date/Time: 06/30/2021 02:36:47 POCT-GLUCOSE [id number] 02:00:15 Test Item Value Reference Range Interpretation Comments POC-GLUCOSE METER 117 mg/dL 70-110 H : TESTED A T [facility] 6720 (BEAKER) (test code = [facility], 1538) [id number]: Sustainability Specialist/Techni salma ID = [id number] for Uy , [place] POCT-GLUCOSE [id number] 22:31:40 Test Item Value Reference Range Interpretation Comments POC-GLUCOSE METER 132 mg/dL 70-110 H : TESTED A T [facility] 6720 (BEAKER) (test code = [facility], 1538) 755[address]: Sustainability Specialist/Techni salma ID = [id number] for Uy , [place] BASIC METABOLIC [id number] 21:23:10 Test Item Value Reference Range Interpretation Comments SODIUM (BEAKER) 143 meq/L 136-145 (test code = 381) POTASSIUM (BEAKER) 3.3 meq/L 3.5-5.1 L (test code = 379) CHLORIDE (BEAKER) 107 meq/L 98-107 (test code = 382) CO2 (BEAKER) (test 25 meq/L 22-29 code = 355) BLOOD UREA NITROGEN 57 mg/dL 7-21 H (BEAKER) (test code = 354) CREATININE (BEAKER) 1.55 mg/dL 0.57-1.25 H (test code = 358) GLUCOSE RANDOM 148 mg/dL 70-105 H (BEAKER) (test code = 652) CALCIUM (BEAKER) 8.4 mg/dL 8.4-10.2 (test code = 697) EGFR (BEAKER) (test 44 mL/min/1.73 ESTIMA OZIEL GFR IS code = 1092) sq m NOT ACCURATE CREATININE CLEARANCE IN PREDICTING GLOMERULAR FILTRATION RATE . ESTIMATED GFR I S NOT APPLICABLE FOR DIALYSIS PATIEN TS. Sustainability Specialist ID - DBLACTIC ACID, [id number] 21:16:25 Test Item Value Reference Range Interpretation Comments LACTATE BLOOD ARTERIAL (2) 1.0 mmol/L 0.5-2.2 (BEAKER) (test code = 2874) Sustainability Specialist ID - DBPOCT-GLUCOSE [id number] 17:43:42 Test Item Value Reference Range Interpretation Comments POC-GLUCOSE METER 186 mg/dL 70-110 H : TESTED A T [facility] 6720 (BEAKER) (test code = [facility] [place], 1538) [id number]: Sustainability Specialist/Techni salma ID = [id number] for TRANG KAMARA VANCOMYCIN LEVEL, [id number] 17:16:05 Test Item Value Reference Range Interpretation Comments VANCOMYCIN TROUGH (BEAKER) (test 17.6 ug/mL 10.0-20.0 code = 522) Sustainability Specialist ID - [id number] 17:06:04 Test Item Value Reference Range Interpretation Comments MAGNESIUM (BEAKER) (test code = 2.2 mg/dL 1.6-2.6 627) Sustainability Specialist ID - BSBLOOD GAS, [id number] 17:04:19 Test Item Value Reference Range Interpretation Comments PH ARTERIAL (BEAKER) (test code = 7.47 7.35-7.45 H 383) PCO2 ARTERIAL (BEAKER) (test code 38 mm Hg 35-45 = 384) PO2 ARTERIAL (BEAKER) (test code = 136 mm Hg 80-90 H 385) O2 SATURATION ARTERIAL (BEAKER) 98.7 % 96.0-97.0 H (test code = 386) HCO3 ARTERIAL (BEAKER) (test code 26 mmol/L 21-29 = 388) BASE EXCESS ARTERIAL (BEAKER) 3.4 mmol/L -2.0-3.0 H (test code = 387) PATIENT TEMPERATURE (BEAKER) (test 39.5 code = 1818) FIO2 (BEAKER) (test code = 1819) 30.0 CBC W/PLT COUNT & AUTO [id number] 16:47:13 Test Item Value Reference Range Interpretation Comments WHITE BLOOD CELL COUNT (BEAKER) 10.4 K/ L 3.5-10.5 (test code = 775) RED BLOOD CELL COUNT (BEAKER) 2.67 M/ L 4.63-6.08 L (test code = 761) HEMOGLOBIN (BEAKER) (test code = 7.6 GM/DL 13.7-17.5 L 410) HEMATOCRIT (BEAKER) (test code = 24.6 % 40.1-51.0 L 411) MEAN CORPUSCULAR VOLUME (BEAKER) 92.1 fL 79.0-92.2 (test code = 753) MEAN CORPUSCULAR HEMOGLOBIN 28.5 pg 25.7-32.2 (BEAKER) (test code = 751) MEAN CORPUSCULAR HEMOGLOBIN CONC 30.9 GM/DL 32.3-36.5 L (BEAKER) (test code = 752) RED CELL DISTRIBUTION WIDTH 18.7 % 11.6-14.4 H (BEAKER) (test code = 412) PLATELET COUNT (BEAKER) (test 115 K/CU MM 150-450 L code = 756) MEAN PLATELET VOLUME (BEAKER) 12.0 fL 9.4-12.4 (test code = 754) NUCLEATED RED BLOOD CELLS 0 /100 WBC 0-0 (BEAKER) (test code = 413) NEUTROPHILS RELATIVE PERCENT 85 % (BEAKER) (test code = 429) LYMPHOCYTES RELATIVE PERCENT 9 % (BEAKER) (test code = 430) MONOCYTES RELATIVE PERCENT 4 % (BEAKER) (test code = 431) EOSINOPHILS RELATIVE PERCENT 1 % (BEAKER) (test code = 432) BASOPHILS RELATIVE PERCENT 0 % (BEAKER) (test code = 437) NEUTROPHILS ABSOLUTE COUNT 8.81 K/ L 1.78-5.38 H (BEAKER) (test code = 670) LYMPHOCYTES ABSOLUTE COUNT 0.93 K/ L 1.32-3.57 L (BEAKER) (test code = 414) MONOCYTES ABSOLUTE COUNT (BEAKER) 0.46 K/ L 0.30-0.82 (test code = 415) EOSINOPHILS ABSOLUTE COUNT 0.09 K/ L 0.04-0.54 (BEAKER) (test code = 416) BASOPHILS ABSOLUTE COUNT (BEAKER) 0.01 K/ L 0.01-0.08 (test code = 417) IMMATURE GRANULOCYTES-RELATIVE 1 % 0-1 PERCENT (BEAKER) (test code = 2801) BLOOD [id number] 16:00:36 Test Item Value Reference Range Interpretation Comments CULTURE (BEAKER) (test No growth in 5 days code = 1095) The specimen volume collected for this blood culture was below the optimum (10 mL per bottle or 20 mL total). Use of lower volumes may adversely affect recovery and/or detection times of some organisms.Blood Culture Panel([employer]) 2021-06-29 15:37:26 Test Item Value Reference Interpretation Comments Range LISTERIA MONOCYTOGENES Not detected Not detected (test code = 98291-1) STAPHYLOCOCCUS (test Not detected Not detected code = 34683-6) STAPHYLOCOCCUS AUREUS Not detected Not detected (test code = 54074-4) Streptococcus (test Not detected Not detected code = 99984-5) STREPTOCOCCUS Not detected Not detected AGALACTIAE (GROUP B) (test code = 73589-9) STREPTOCOCCUS Not detected Not detected PNEUMONIAE (test code = 25272-1) Streptococcus pyogenes Not detected Not detected (Group A) (test code = 98805-9) ACINETOBACTER Not detected Not detected BAUMANNII (test code = 44737-4) HAEMOPHILUS INFLUENZAE Not detected Not detected (test code = 30626-8) NEISSERIA MENINGITIDIS Not detected Not detected (test code = 43788-3) ENTEROBACTERIACEAE Not detected Not detected (test code = 41583-1) ENTEROBACTER CLOACOE Not detected Not detected COMPLEX (test code = 04559-8) KLEBSIELLA OXYTOCA Not detected Not detected (test code = 38835-3) KLEBSIELLA PNEUMONIAE Not detected Not detected (test code = 93929-3) PROTEUS (test code = Not detected Not detected 33969-0) SERRATIA MARCESCENS Not detected Not detected (test code = 06038-8) SHIRIN ALBICANS (test Not detected Not detected code = 74718-6) SHIRIN GLABRATA (test Detected Not detected A First line therapy: code = 20521-8) MicafunginDe -escala te based on susceptibilitie s when patient is clinically improvingID and Ophthalmologic consultations strongly recommended Reference Range : Not Detected SHIRIN KRUSEI (test Not detected Not detected code = 39493-0) SHIRIN PARAPSILOSIS Not detected Not detected (test code = 21766-5) SHIRIN TROPICALIS Not detected Not detected (test code = 89575-5) ESCHERICHIA COLI (test Not detected Not detected code = 19439-8) METHICILLIN-RESISTANCE GENE (test code = 25637-9) VANCOMYCIN-RESISTANCE GENE (test code = 85151-7) CARBAPENEM-RESISTANCE GENE (test code = 55508-2) ENTEROCOCCUS (test Not detected Not detected code = 80283-5) PSEUDOMONAS AERUGINOSA Not detected Not detected (test code = 00497-0) BANDAR (test code = BANDAR) Other bacteria and resistance markers not targeted by this PCR panel cannot be excluded; therefore clinical correlation and follow up of serology, culture results, and other molecular studies is required. The results are not intended to be used as the sole means for clinical diagnosis or patient management decisions. This sample was tested at the [facility] Molecular Diagnostics Laboratory using the [employer] Blood Culture ID Panel. It is FDA cleared and has been verified and approved by the [facility] for clinical use. This laboratory is CLIA-certified and [employer] [place] [employer] (CAP)-accredited to perform high complexity testing. Lab Interpretation Abnormal (test code = 90734-0) [facility] [id number] 15:37:26 Test Item Value Reference Interpretation Comments Range LISTERIA MONOCYTOGENES Not detected Not detected (test code = 8037901) STAPHYLOCOCCUS (test Not detected Not detected code = 9997596) STAPHYLOCOCCUS AUREUS Not detected Not detected (test code = 6102355) STREPTOCOCCUS (test Not detected Not detected code = 4662752) STREPTOCOCCUS Not detected Not detected AGALACTIAE (GROUP B) (test code = 5900291) STREPTOCOCCUS Not detected Not detected PNEUMONIAE (test code = 9043599) STREPTOCOCCUS PYOGENES Not detected Not detected (GROUP A) (test code = 5565906) ACINETOBACTER BAUMANNII Not detected Not detected (test code = 2267249) HAEMOPHILUS INFLUENZAE Not detected Not detected (test code = 3731746) NEISSERIA MENINGITIDIS Not detected Not detected (test code = 1626704) ENTEROBACTERIACEAE Not detected Not detected (test code = 3124110) ENTEROBACTER CLOACOE Not detected Not detected COMPLEX (test code = 3034498) KLEBSIELLA OXYTOCA Not detected Not detected (test code = 8727710) KLEBSIELLA PNEUMONIAE Not detected Not detected (test code = 1650) PROTEUS (test code = Not detected Not detected 3005808) SERRATIA MARCESCENS Not detected Not detected (test code = 5795965) SHIRIN ALBICANS (test Not detected Not detected code = 8093192) SHIRIN GLABRATA (test Detected Not detected A First line therapy: code = 9537965) MicafunginDe -escalat e based on susceptibilitie s when patient is clinically improvingID and Ophthalmologic consultations strongly recomm ended Reference Range : Not Detected SHIRIN KRUSEI (test Not detected Not detected code = 0094315) SHIRIN PARAPSILOSIS Not detected Not detected (test code = 3026824) SHIRIN TROPICALIS Not detected Not detected (test code = 9866576) ESCHERICHIA COLI (test Not detected Not detected code = 6703439) METHICILLIN-RESISTANCE GENE (test code = 4208490) VANCOMYCIN-RESISTANCE GENE (test code = 3365512) CARBAPENEM-RESISTANCE GENE (test code = 8479200) ENTEROCOCCUS-BEAKER Not detected Not detected (test code = 2228542) PSEUDOMONAS Not detected Not detected AERUGINOSA-BEAKER (test code = 6151819) Other bacteria and resistance markers not targeted by this PCR panel cannot be excluded; therefore clinical correlation and follow up of serology, culture results, and other molecular studies is required. The results are not intended to be used as the sole means for clinical diagnosis or patient management decisions. This sample was tested at the [facility] Molecular Diagnostics Laboratory using the 99.[employer] Blood Culture ID Panel. It is FDA cleared and has been verified and approved by the [facility]ostics [facility] for clinical use. This laboratory is CLIA-certified and College ofAmerican Pathologists (CAP)-accredited to perform high complexity testing.[id number] 14:50:30 Test Item Value Reference Range Interpretation Comments PARTIAL THROMBOPLASTIN TIME 69.4 seconds 22.5-36.0 H (BEAKER) (test code = 760) BASIC METABOLIC [id number] 12:40:24 Test Item Value Reference Range Interpretation Comments SODIUM (BEAKER) 142 meq/L 136-145 (test code = 381) POTASSIUM (BEAKER) 3.9 meq/L 3.5-5.1 (test code = 379) CHLORIDE (BEAKER) 107 meq/L 98-107 (test code = 382) CO2 (BEAKER) (test 27 meq/L 22-29 code = 355) BLOOD UREA NITROGEN 57 mg/dL 7-21 H (BEAKER) (test code = 354) CREATININE (BEAKER) 1.54 mg/dL 0.57-1.25 H (test code = 358) GLUCOSE RANDOM 256 mg/dL 70-105 H (BEAKER) (test code = 652) CALCIUM (BEAKER) 8.8 mg/dL 8.4-10.2 (test code = 697) EGFR (BEAKER) (test 45 mL/min/1.73 ESTIMA OZIEL GFR IS code = 1092) sq m NOT ACCURATE CREATININE CLEARANCE IN PREDICTING GLOMERULAR FILTRATION RATE . ESTIMATED GFR I S NOT APPLICABLE FOR DIALYSIS PATIEN TS. Sustainability Specialist ID - BSPOCT-GLUCOSE [id number] 12:27:18 Test Item Value Reference Range Interpretation Comments POC-GLUCOSE METER 229 mg/dL 70-110 H : TESTED A T [facility] (BEAKER) (test code = [facility] [place], 1538) [address]: Sustainability Specialist/Techni salma ID = [id number] for TRANG KAMARA [id number] 08:57:50 Test Item Value Reference Range Interpretation Comments PARTIAL THROMBOPLASTIN TIME 62.3 seconds 22.5-36.0 H (BEAKER) (test code = 760) RAD, CHEST, 1 VIEW, NON [id number] 07:14:00Reason for exam:- >intubatedShould this be performed at the bedside?->Yes [facility] : 1950 Sex: MFINAL REPORT Exam: RAD, CHEST, 1 VIEW, NON DEPTDate: 06/29/2021 7:11 AM Indication:intubatedComparison: 06/28/2021 FINDINGS: Lines/Tubes/Devices: Endotracheal tube in place with distaltip measuring 4.0 cm above the alexia. Enteric tube in place seen coursing below the diaphragm with the distal tip collimated out of view. Status post post sternotomy. Left midline in place, distal tipterminating in the left axilla. Lungs/pleura:Borderline lung volumes. Mild interval worsening of vascular and interstitial prominence. Stable bibasilar airspace opacities. No significant pleural effusion. No pneumothorax. Heart/Mediastinum:Unchanged Bones/Soft Tissues: No acute osseous abnormality. Upper abdomen: Unremarkable. IMPRESSION:Lines and tubes as above.Borderline lung volumes.Mild interval worsening of vascular and interstitial prominence.Bibasilar airspace opacities again noted. Signed: Kelvin Sosa MDReport Verified Date/Time: 06/29/2021 07:14:46 Reading Location: [facility] Radiology Reading Room [id number] 06:58:42 Test Item Value Reference Range Interpretation Comments PHOSPHORUS (BEAKER) (test code = 4.2 mg/dL 2.3-4.7 604) Sustainability Specialist ID - BSHEPATIC FUNCTION [id number] 06:58:41 Test Item Value Reference Range Interpretation Comments TOTAL PROTEIN (BEAKER) (test code = 5.1 gm/dL 6.0-8.3 L 770) ALBUMIN (BEAKER) (test code = 1145) 2.3 g/dL 3.5-5.0 L BILIRUBIN TOTAL (BEAKER) (test code 0.4 mg/dL 0.2-1.2 = 377) BILIRUBIN DIRECT (BEAKER) (test 0.2 mg/dL 0.1-0.5 code = 706) ALKALINE PHOSPHATASE (BEAKER) (test 75 U/L 40-150 code = 346) AST (SGOT) (BEAKER) (test code = 34 U/L 5-34 353) ALT (SGPT) (BEAKER) (test code = 43 U/L 6-55 347) Sustainability Specialist ID - BSPOCT-GLUCOSE [id number] 06:27:42 Test Item Value Reference Range Interpretation Comments POC-GLUCOSE METER 199 mg/dL 70-110 H : TESTED A T [facility] (BEAKER) (test code = [facility] [place], 1538) [address]: Sustainability Specialist/Techni salma ID = [id number] for ALISHA RAMIREZ LACTATE DEHYDROGENASE (LDH)2021-06-29 02:42:02 Test Item Value Reference Range Interpretation Comments LACTATE DEHYDROGENASE (BEAKER) (test 262 U/L 125-220 H code = 635) Sustainability Specialist ID - BSUric [id number] 02:42:01 Test Item Value Reference Range Interpretation Comments Uric Acid (test code = 6.5 mg/dL 2.6-7.2 3084-1) BANDAR (test code = BANDAR) Sustainability Specialist ID - BS Lab Interpretation (test Normal code = 16171-6) [facility] [id number] 02:42:01 Test Item Value Reference Range Interpretation Comments URIC ACID (BEAKER) (test code = 6.5 mg/dL 2.6-7.2 773) Sustainability Specialist ID - BSBASIC METABOLIC [id number] 02:42:00 Test Item Value Reference Range Interpretation Comments SODIUM (BEAKER) 142 meq/L 136-145 (test code = 381) POTASSIUM (BEAKER) 3.7 meq/L 3.5-5.1 (test code = 379) CHLORIDE (BEAKER) 109 meq/L 98-107 H (test code = 382) CO2 (BEAKER) (test 23 meq/L 22-29 code = 355) BLOOD UREA NITROGEN 57 mg/dL 7-21 H (BEAKER) (test code = 354) CREATININE (BEAKER) 1.53 mg/dL 0.57-1.25 H (test code = 358) GLUCOSE RANDOM 205 mg/dL 70-105 H (BEAKER) (test code = 652) CALCIUM (BEAKER) 8.5 mg/dL 8.4-10.2 (test code = 697) EGFR (BEAKER) (test 45 mL/min/1.73 ESTIMA OZIEL GFR IS code = 1092) sq m NOT ACCURATE CREATININE CLEARANCE IN PREDICTING GLOMERULAR FILTRATION RATE . ESTIMATED GFR I S NOT APPLICABLE FOR DIALYSIS PATIEN TS. Sustainability Specialist ID - [id number] 02:42:00 Test Item Value Reference Range Interpretation Comments MAGNESIUM (BEAKER) (test code = 1.9 mg/dL 1.6-2.6 627) Sustainability Specialist ID - BSCBC W/PLT COUNT & AUTO [id number] 02:09:55 Test Item Value Reference Range Interpretation Comments WHITE BLOOD CELL COUNT (BEAKER) 11.3 K/ L 3.5-10.5 H (test code = 775) RED BLOOD CELL COUNT (BEAKER) 2.69 M/ L 4.63-6.08 L (test code = 761) HEMOGLOBIN (BEAKER) (test code = 7.5 GM/DL 13.7-17.5 L 410) HEMATOCRIT (BEAKER) (test code = 25.3 % 40.1-51.0 L 411) MEAN CORPUSCULAR VOLUME (BEAKER) 94.1 fL 79.0-92.2 H (test code = 753) MEAN CORPUSCULAR HEMOGLOBIN 27.9 pg 25.7-32.2 (BEAKER) (test code = 751) MEAN CORPUSCULAR HEMOGLOBIN CONC 29.6 GM/DL 32.3-36.5 L (BEAKER) (test code = 752) RED CELL DISTRIBUTION WIDTH 18.4 % 11.6-14.4 H (BEAKER) (test code = 412) PLATELET COUNT (BEAKER) (test 115 K/CU MM 150-450 L code = 756) MEAN PLATELET VOLUME (BEAKER) 11.6 fL 9.4-12.4 (test code = 754) NUCLEATED RED BLOOD CELLS 0 /100 WBC 0-0 (BEAKER) (test code = 413) NEUTROPHILS RELATIVE PERCENT 87 % (BEAKER) (test code = 429) LYMPHOCYTES RELATIVE PERCENT 8 % (BEAKER) (test code = 430) MONOCYTES RELATIVE PERCENT 4 % (BEAKER) (test code = 431) EOSINOPHILS RELATIVE PERCENT 1 % (BEAKER) (test code = 432) BASOPHILS RELATIVE PERCENT 0 % (BEAKER) (test code = 437) NEUTROPHILS ABSOLUTE COUNT 9.89 K/ L 1.78-5.38 H (BEAKER) (test code = 670) LYMPHOCYTES ABSOLUTE COUNT 0.89 K/ L 1.32-3.57 L (BEAKER) (test code = 414) MONOCYTES ABSOLUTE COUNT (BEAKER) 0.40 K/ L 0.30-0.82 (test code = 415) EOSINOPHILS ABSOLUTE COUNT 0.08 K/ L 0.04-0.54 (BEAKER) (test code = 416) BASOPHILS ABSOLUTE COUNT (BEAKER) 0.01 K/ L 0.01-0.08 (test code = 417) IMMATURE GRANULOCYTES-RELATIVE 1 % 0-1 PERCENT (BEAKER) (test code = 2801) [id number] 02:08:31 Test Item Value Reference Range Interpretation Comments PARTIAL THROMBOPLASTIN TIME 50.7 seconds 22.5-36.0 H (BEAKER) (test code = 760) BLOOD GAS, [id number] 01:50:20 Test Item Value Reference Range Interpretation Comments PH ARTERIAL (BEAKER) (test code = 7.46 7.35-7.45 H 383) PCO2 ARTERIAL (BEAKER) (test code 38 mm Hg 35-45 = 384) PO2 ARTERIAL (BEAKER) (test code = 160 mm Hg 80-90 H 385) O2 SATURATION ARTERIAL (BEAKER) 99.1 % 96.0-97.0 H (test code = 386) HCO3 ARTERIAL (BEAKER) (test code 26 mmol/L 21-29 = 388) BASE EXCESS ARTERIAL (BEAKER) 2.5 mmol/L -2.0-3.0 (test code = 387) PATIENT TEMPERATURE (BEAKER) (test 38.5 code = 1818) FIO2 (BEAKER) (test code = 1819) 35.0 POCT-GLUCOSE [id number] 01:43:59 Test Item Value Reference Range Interpretation Comments POC-GLUCOSE METER 173 mg/dL 70-110 H : TESTED A T [facility] 6720 (BEAKER) (test code = [facility], 1538) [id number]: Sustainability Specialist/Techni salma ID = [id number] for ALISHA RAMIREZ BASIC METABOLIC [id number] 23:03:13 Test Item Value Reference Range Interpretation Comments SODIUM (BEAKER) 143 meq/L 136-145 (test code = 381) POTASSIUM (BEAKER) 3.8 meq/L 3.5-5.1 Specimen slightly (test code = 379) hemolyzed CHLORIDE (BEAKER) 109 meq/L 98-107 H (test code = 382) CO2 (BEAKER) (test 25 meq/L 22-29 code = 355) BLOOD UREA NITROGEN 57 mg/dL 7-21 H (BEAKER) (test code = 354) CREATININE (BEAKER) 1.63 mg/dL 0.57-1.25 H Specimen slightly (test code = 358) hemolyzed GLUCOSE RANDOM 202 mg/dL 70-105 H (BEAKER) (test code = 652) CALCIUM (BEAKER) 8.5 mg/dL 8.4-10.2 (test code = 697) EGFR (BEAKER) (test 42 mL/min/1.73 ESTIMA OZIEL GFR IS code = 1092) sq m NOT ACCURATE CREATININE CLEARANCE IN PREDICTING GLOMERULAR FILTRATION RATE . ESTIMATED GFR I S NOT APPLICABLE FOR DIALYSIS PATIEN TS. Sustainability Specialist ID - BSPOCT-GLUCOSE [id number] 20:25:37 Test Item Value Reference Range Interpretation Comments POC-GLUCOSE METER 192 mg/dL 70-110 H : TESTED A T [facility] 6720 (BEAKER) (test code = [facility], 1538) [id number]: Sustainability Specialist/Techni salma ID = [id number] for Se ramirez (contract) Vandana sutherland [id number] 18:59:11 Test Item Value Reference Range Interpretation Comments PARTIAL THROMBOPLASTIN TIME 50.9 seconds 22.5-36.0 H (BEAKER) (test code = 760) POCT-GLUCOSE [id number] 18:22:18 Test Item Value Reference Range Interpretation Comments POC-GLUCOSE METER 244 mg/dL 70-110 H : TESTED A T [facility] 6720 (BEAKER) (test code = [facility], 1538) [address]: Sustainability Specialist/Techni salma ID = [id number] for Fadia Hays [id number] 18:13:23 Test Item Value Reference Range Interpretation Comments MAGNESIUM (BEAKER) (test code = 2.0 mg/dL 1.6-2.6 627) Sustainability Specialist ID - BSCBC W/PLT COUNT & AUTO [id number] 17:59:41 Test Item Value Reference Range Interpretation Comments WHITE BLOOD CELL COUNT (BEAKER) 12.5 K/ L 3.5-10.5 H (test code = 775) RED BLOOD CELL COUNT (BEAKER) 2.77 M/ L 4.63-6.08 L (test code = 761) HEMOGLOBIN (BEAKER) (test code = 7.8 GM/DL 13.7-17.5 L 410) HEMATOCRIT (BEAKER) (test code = 25.4 % 40.1-51.0 L 411) MEAN CORPUSCULAR VOLUME (BEAKER) 91.7 fL 79.0-92.2 (test code = 753) MEAN CORPUSCULAR HEMOGLOBIN 28.2 pg 25.7-32.2 (BEAKER) (test code = 751) MEAN CORPUSCULAR HEMOGLOBIN CONC 30.7 GM/DL 32.3-36.5 L (BEAKER) (test code = 752) RED CELL DISTRIBUTION WIDTH 18.1 % 11.6-14.4 H (BEAKER) (test code = 412) PLATELET COUNT (BEAKER) (test 128 K/CU MM 150-450 L code = 756) MEAN PLATELET VOLUME (BEAKER) 11.8 fL 9.4-12.4 (test code = 754) NUCLEATED RED BLOOD CELLS 0 /100 WBC 0-0 (BEAKER) (test code = 413) NEUTROPHILS RELATIVE PERCENT 89 % (BEAKER) (test code = 429) LYMPHOCYTES RELATIVE PERCENT 7 % (BEAKER) (test code = 430) MONOCYTES RELATIVE PERCENT 3 % (BEAKER) (test code = 431) EOSINOPHILS RELATIVE PERCENT 1 % (BEAKER) (test code = 432) BASOPHILS RELATIVE PERCENT 0 % (BEAKER) (test code = 437) NEUTROPHILS ABSOLUTE COUNT 11.07 K/ L 1.78-5.38 H (BEAKER) (test code = 670) LYMPHOCYTES ABSOLUTE COUNT 0.86 K/ L 1.32-3.57 L (BEAKER) (test code = 414) MONOCYTES ABSOLUTE COUNT (BEAKER) 0.34 K/ L 0.30-0.82 (test code = 415) EOSINOPHILS ABSOLUTE COUNT 0.09 K/ L 0.04-0.54 (BEAKER) (test code = 416) BASOPHILS ABSOLUTE COUNT (BEAKER) 0.01 K/ L 0.01-0.08 (test code = 417) IMMATURE GRANULOCYTES-RELATIVE 1 % 0-1 PERCENT (BEAKER) (test code = 2801) BLOOD GAS, [id number] 17:53:50 Test Item Value Reference Range Interpretation Comments PH ARTERIAL (BEAKER) (test code = 7.46 7.35-7.45 H 383) PCO2 ARTERIAL (BEAKER) (test code 35 mm Hg 35-45 = 384) PO2 ARTERIAL (BEAKER) (test code = 86 mm Hg 80-90 385) O2 SATURATION ARTERIAL (BEAKER) 96.7 % 96.0-97.0 (test code = 386) HCO3 ARTERIAL (BEAKER) (test code 24 mmol/L 21-29 = 388) BASE EXCESS ARTERIAL (BEAKER) 0.8 mmol/L -2.0-3.0 (test code = 387) PATIENT TEMPERATURE (BEAKER) (test 38.0 code = 1818) FIO2 (BEAKER) (test code = 1819) 35.0 FUNGITELL R B-D-GLUCAN WITH REFLEX TO [id number] 12:25:42 Test Item Value Reference Range Interpretation Comments FUNGITELL (test code = See scanned report 28794-5) BANDAR (test code = BANDAR) See scanned report [facility] WITH REFLEX TO [id number] 12:25:42 Test Item Value Reference Range Interpretation Comments FUNGITELL (test code = See scanned report 4559) See scanned [id number] 12:23:54 Test Item Value Reference Range Interpretation Comments PARTIAL THROMBOPLASTIN TIME 49.7 seconds 22.5-36.0 H (BEAKER) (test code = 760) POCT-GLUCOSE [id number] 12:07:29 Test Item Value Reference Range Interpretation Comments POC-GLUCOSE METER 232 mg/dL 70-110 H : TESTED A T [facility] 6720 (BEAKER) (test code = [facility] [place], 1538) [address]: Sustainability Specialist/Techni salma ID = [id number] for Fadia Hays BASIC METABOLIC [id number] 10:52:41 Test Item Value Reference Range Interpretation Comments SODIUM (BEAKER) 143 meq/L 136-145 (test code = 381) POTASSIUM (BEAKER) 4.5 meq/L 3.5-5.1 (test code = 379) CHLORIDE (BEAKER) 114 meq/L 98-107 H (test code = 382) CO2 (BEAKER) (test 22 meq/L 22-29 code = 355) BLOOD UREA NITROGEN 56 mg/dL 7-21 H (BEAKER) (test code = 354) CREATININE (BEAKER) 1.58 mg/dL 0.57-1.25 H (test code = 358) GLUCOSE RANDOM 231 mg/dL 70-105 H (BEAKER) (test code = 652) CALCIUM (BEAKER) 8.3 mg/dL 8.4-10.2 L (test code = 697) EGFR (BEAKER) (test 43 mL/min/1.73 ESTIMA OZIEL GFR IS code = 1092) sq m NOT ACCURATE CREATININE CLEARANCE IN PREDICTING GLOMERULAR FILTRATION RATE . ESTIMATED GFR I S NOT APPLICABLE FOR DIALYSIS PATIEN TS. Sustainability Specialist ID - BSRAD, CHEST, 1 VIEW, NON [id number] 07:39:00Reason for exam:- >intubatedShould this be performed at the bedside?->Yes [facility] 1950 Sex: MFINAL REPORT Exam: RAD, CHEST, 1 VIEW, NON DEPTDate: 06/28/2021 7:38 AM Indication:intubatedComparison: 06/27/2021 FINDINGS: Lines/Tubes/Devices: Endotracheal tube in place with distaltip measuring 4.8 cm above the alexia. Enteric tube in place seen coursing below the diaphragm with the distal tip collimated out of view. Left midline and place, distal tip terminating in the left axilla. Lungs/pleura:Borderline lung volumes. Stable vascular and interstitial prominence. Patchy bibasilar airspace opacities. No significant pleural effusion. No pneumothorax. Heart/Mediastinum:UnchangedBones/Soft Tissues: No acute osseous abnormality. Upper abdomen: Unremarkable. IMPRESSION:Lines and tubes as above.Borderline lung volumes.Stable vascular and interstitial prominence.Stable bibasilar airspace opacities. Signed: Kelvin Sosa Verified Date/Time: 06/28/2021 07:39:59 Reading Location: [facility] Reading Room Manual [id number] 07:01:59 Test Item Value Reference Range Interpretation Comments % Neutros (test code = 94 % 2816) % Lymphs (test code = 3 % 2817) % Monos (test code = 3 % 2818) # Neutros (test code = 11.19 K/ul 1.78-5.38 H 2830) # Lymphs (test code = 0.36 K/ul 1.32-3.57 L 2831) # Monos (test code = 0.36 K/uL 0.30-0.82 2832) Total Counted (test code 100 = 1351) WBC Morphology (test Normal code = 487) Giant Platelet (test Present code = 313) Polychromasia (test code 3+ many = 478) Anisocytosis (test code 1+ few = 961) Microcytes (test code = 1+ few 965) Poikilocytes (test code 2+ moderate = 966) Spherocytes (test code = 1+ few 768) Elliptocytes (test code 1+ few = 962) Artifact (test code = Present 3432) Platelet Conc (test code Decreased = 3438) BANDAR (test code = BANDAR) Sustainability Specialist ID - emmanuel Alonso comments: Slide comments: Lab Interpretation (test Abnormal code = 90817-6) [facility](CELLAVISION MANUAL DIFF)2021-06-28 07:01:59 Test Item Value Reference Range Interpretation Comments NEUTROPHILS - REL 94 % (CELLAVISION)(BEAKER) (test code = 2816) LYMPHOCYTES - REL 3 % (CELLAVISION)(BEAKER) (test code = 2817) MONOCYTES - REL 3 % (CELLAVISION)(BEAKER) (test code = 2818) NEUTROPHILS - ABS 11.19 K/ul 1.78-5.38 H (CELLAVISION)(BEAKER) (test code = 2830) LYMPHOCYTES - ABS 0.36 K/ul 1.32-3.57 L (CELLAVISION)(BEAKER) (test code = 2831) MONOCYTES - ABS 0.36 K/uL 0.30-0.82 (CELLAVISION)(BEAKER) (test code = 2832) TOTAL COUNTED (BEAKER) (test code 100 = 1351) WBC MORPHOLOGY (BEAKER) (test Normal code = 487) GIANT PLATELETS (BEAKER) (test Present code = 313) POLYCHROMATOPHILLIC RBCS(BEAKER) 3+ many (test code = 478) ANISOCYTOSIS (BEAKER) (test code 1+ few = 961) MICROCYTES (BEAKER) (test code = 1+ few 965) POIKILOCYTES (BEAKER) (test code 2+ moderate = 966) SPHEROCYTES (BEAKER) (test code = 1+ few 768) ELLIPTOCYTES (BEAKER) (test code 1+ few = 962) ARTIFACT (CELLAVISION)(BEAKER) Present (test code = 3432) PLATELET CONCENTRATION Decreased (CELLAVISION)(BEAKER) (test code = 3438) Sustainability Specialist ID - emmanuel Alonso comments: Slide comments:CBC W/PLT COUNT & AUTO [id number] 07:01:57 Test Item Value Reference Range Interpretation Comments WHITE BLOOD CELL COUNT (BEAKER) 11.9 K/ L 3.5-10.5 H (test code = 775) RED BLOOD CELL COUNT (BEAKER) 2.66 M/ L 4.63-6.08 L (test code = 761) HEMOGLOBIN (BEAKER) (test code = 7.4 GM/DL 13.7-17.5 L 410) HEMATOCRIT (BEAKER) (test code = 24.6 % 40.1-51.0 L 411) MEAN CORPUSCULAR VOLUME (BEAKER) 92.5 fL 79.0-92.2 H (test code = 753) MEAN CORPUSCULAR HEMOGLOBIN 27.8 pg 25.7-32.2 (BEAKER) (test code = 751) MEAN CORPUSCULAR HEMOGLOBIN CONC 30.1 GM/DL 32.3-36.5 L (BEAKER) (test code = 752) RED CELL DISTRIBUTION WIDTH 17.8 % 11.6-14.4 H (BEAKER) (test code = 412) PLATELET COUNT (BEAKER) (test 130 K/CU MM 150-450 L code = 756) MEAN PLATELET VOLUME (BEAKER) 11.8 fL 9.4-12.4 (test code = 754) NUCLEATED RED BLOOD CELLS 0 /100 WBC 0-0 (BEAKER) (test code = 413) LACTATE DEHYDROGENASE (LDH)2021-06-28 05:33:45 Test Item Value Reference Range Interpretation Comments LACTATE DEHYDROGENASE (BEAKER) (test 257 U/L 125-220 H code = 635) Sustainability Specialist ID - EMILIO [id number] 05:33:44 Test Item Value Reference Range Interpretation Comments PHOSPHORUS (BEAKER) (test code = 4.4 mg/dL 2.3-4.7 604) Sustainability Specialist ID Cory KRISHNAMURTHY WHEPATIC FUNCTION [id number] 05:33:44 Test Item Value Reference Range Interpretation Comments TOTAL PROTEIN (BEAKER) (test code = 4.8 gm/dL 6.0-8.3 L 770) ALBUMIN (BEAKER) (test code = 1145) 2.2 g/dL 3.5-5.0 L BILIRUBIN TOTAL (BEAKER) (test code 0.4 mg/dL 0.2-1.2 = 377) BILIRUBIN DIRECT (BEAKER) (test 0.2 mg/dL 0.1-0.5 code = 706) ALKALINE PHOSPHATASE (BEAKER) (test 67 U/L 40-150 code = 346) AST (SGOT) (BEAKER) (test code = 36 U/L 5-34 H 353) ALT (SGPT) (BEAKER) (test code = 41 U/L 6-55 347) Sustainability Specialist ID - EMILIO [id number] 05:33:43 Test Item Value Reference Range Interpretation Comments MAGNESIUM (BEAKER) (test code = 2.1 mg/dL 1.6-2.6 627) Sustainability Specialist ID - EMILIO WBASIC METABOLIC [id number] 05:33:42 Test Item Value Reference Range Interpretation Comments SODIUM (BEAKER) 143 meq/L 136-145 (test code = 381) POTASSIUM (BEAKER) 3.6 meq/L 3.5-5.1 (test code = 379) CHLORIDE (BEAKER) 114 meq/L 98-107 H (test code = 382) CO2 (BEAKER) (test 21 meq/L 22-29 L code = 355) BLOOD UREA NITROGEN 58 mg/dL 7-21 H (BEAKER) (test code = 354) CREATININE (BEAKER) 1.67 mg/dL 0.57-1.25 H (test code = 358) GLUCOSE RANDOM 249 mg/dL 70-105 H (BEAKER) (test code = 652) CALCIUM (BEAKER) 8.3 mg/dL 8.4-10.2 L (test code = 697) EGFR (BEAKER) (test 41 mL/min/1.73 ESTIMA OZIEL GFR IS code = 1092) sq m NOT ACCURATE CREATININE CLEARANCE IN PREDICTING GLOMERULAR FILTRATION RATE . ESTIMATED GFR I S NOT APPLICABLE FOR DIALYSIS PATIEN TS. Sustainability Specialist ID - EMILIO [id number] 05:29:56 Test Item Value Reference Range Interpretation Comments PARTIAL THROMBOPLASTIN TIME 36.1 seconds 22.5-36.0 H (BEAKER) (test code = 760) BLOOD GAS, [id number] 04:52:21 Test Item Value Reference Range Interpretation Comments PH ARTERIAL (BEAKER) (test code = 7.44 7.35-7.45 383) PCO2 ARTERIAL (BEAKER) (test code 33 mm Hg 35-45 L = 384) PO2 ARTERIAL (BEAKER) (test code 143 mm Hg 80-90 H = 385) O2 SATURATION ARTERIAL (BEAKER) 98.9 % 96.0-97.0 H (test code = 386) HCO3 ARTERIAL (BEAKER) (test code 22 mmol/L 21-29 = 388) BASE EXCESS ARTERIAL (BEAKER) -2.0 mmol/L -2.0-3.0 (test code = 387) PATIENT TEMPERATURE (BEAKER) 37.5 (test code = 1818) FIO2 (BEAKER) (test code = 1819) 35.0 POCT-GLUCOSE [id number] 23:44:50 Test Item Value Reference Range Interpretation Comments POC-GLUCOSE METER 234 mg/dL 70-110 H : Notified RN/MD: (BEAKER) (test code = TESTED AT [facility] 4630 7377) [facility], [address]: Sustainability Specialist/Techni salma ID = [id number] for Edin mitchell (contract, Cheri rees BASIC METABOLIC [id number] 22:53:47 Test Item Value Reference Range Interpretation Comments SODIUM (BEAKER) 142 meq/L 136-145 (test code = 381) POTASSIUM (BEAKER) 3.8 meq/L 3.5-5.1 (test code = 379) CHLORIDE (BEAKER) 115 meq/L 98-107 H (test code = 382) CO2 (BEAKER) (test 19 meq/L 22-29 L code = 355) BLOOD UREA NITROGEN 59 mg/dL 7-21 H (BEAKER) (test code = 354) CREATININE (BEAKER) 1.79 mg/dL 0.57-1.25 H (test code = 358) GLUCOSE RANDOM 228 mg/dL 70-105 H (BEAKER) (test code = 652) CALCIUM (BEAKER) 8.3 mg/dL 8.4-10.2 L (test code = 697) EGFR (BEAKER) (test 38 mL/min/1.73 ESTIMA OZIEL GFR IS code = 1092) sq m NOT ACCURATE CREATININE CLEARANCE IN PREDICTING GLOMERULAR FILTRATION RATE . ESTIMATED GFR I S NOT APPLICABLE FOR DIALYSIS PATIEN TS. Sustainability Specialist ID - BSPOCT-GLUCOSE [id number] 21:22:08 Test Item Value Reference Range Interpretation Comments POC-GLUCOSE METER 196 mg/dL 70-110 H : TESTED A T [facility] 6720 (BEAKER) (test code = [facility], 1538) [address]: Sustainability Specialist/Techni salma ID = [id number] for Se ramirez (contract), Vandana sutherland BLOOD GAS, [id number] 18:24:43 Test Item Value Reference Range Interpretation Comments PH ARTERIAL (BEAKER) (test code = 7.46 7.35-7.45 H 383) PCO2 ARTERIAL (BEAKER) (test code 29 mm Hg 35-45 L = 384) PO2 ARTERIAL (BEAKER) (test code 123 mm Hg 80-90 H = 385) O2 SATURATION ARTERIAL (BEAKER) 98.7 % 96.0-97.0 H (test code = 386) HCO3 ARTERIAL (BEAKER) (test code 20 mmol/L 21-29 L = 388) BASE EXCESS ARTERIAL (BEAKER) -3.2 mmol/L -2.0-3.0 L (test code = 387) PATIENT TEMPERATURE (BEAKER) 36.0 (test code = 1818) FIO2 (BEAKER) (test code = 1819) 35.0 POCT-GLUCOSE [id number] 18:23:02 Test Item Value Reference Range Interpretation Comments POC-GLUCOSE METER 131 mg/dL 70-110 H : TESTED A T [facility] 6720 (BEAKER) (test code = [facility] [place], 1538) [address]: Sustainability Specialist/Techni salma ID = [id number] for RODRIGUEZ REILLY [id number] 16:35:38 Test Item Value Reference Range Interpretation Comments MAGNESIUM (BEAKER) (test code = 2.2 mg/dL 1.6-2.6 627) Sustainability Specialist ID - BSBASIC METABOLIC [id number] 16:35:37 Test Item Value Reference Range Interpretation Comments SODIUM (BEAKER) 144 meq/L 136-145 (test code = 381) POTASSIUM (BEAKER) 3.7 meq/L 3.5-5.1 (test code = 379) CHLORIDE (BEAKER) 117 meq/L 98-107 H (test code = 382) CO2 (BEAKER) (test 21 meq/L 22-29 L code = 355) BLOOD UREA NITROGEN 56 mg/dL 7-21 H (BEAKER) (test code = 354) CREATININE (BEAKER) 1.78 mg/dL 0.57-1.25 H (test code = 358) GLUCOSE RANDOM 148 mg/dL 70-105 H (BEAKER) (test code = 652) CALCIUM (BEAKER) 8.2 mg/dL 8.4-10.2 L (test code = 697) EGFR (BEAKER) (test 38 mL/min/1.73 ESTIMA OZIEL GFR IS code = 1092) sq m NOT ACCURATE CREATININE CLEARANCE IN PREDICTING GLOMERULAR FILTRATION RATE . ESTIMATED GFR I S NOT APPLICABLE FOR DIALYSIS PATIEN TS. Sustainability Specialist ID - BSCBC W/PLT COUNT & AUTO [id number] 16:18:59 Test Item Value Reference Range Interpretation Comments WHITE BLOOD CELL COUNT (BEAKER) 12.4 K/ L 3.5-10.5 H (test code = 775) RED BLOOD CELL COUNT (BEAKER) 2.67 M/ L 4.63-6.08 L (test code = 761) HEMOGLOBIN (BEAKER) (test code = 7.5 GM/DL 13.7-17.5 L 410) HEMATOCRIT (BEAKER) (test code = 24.9 % 40.1-51.0 L 411) MEAN CORPUSCULAR VOLUME (BEAKER) 93.3 fL 79.0-92.2 H (test code = 753) MEAN CORPUSCULAR HEMOGLOBIN 28.1 pg 25.7-32.2 (BEAKER) (test code = 751) MEAN CORPUSCULAR HEMOGLOBIN CONC 30.1 GM/DL 32.3-36.5 L (BEAKER) (test code = 752) RED CELL DISTRIBUTION WIDTH 17.8 % 11.6-14.4 H (BEAKER) (test code = 412) PLATELET COUNT (BEAKER) (test 131 K/CU MM 150-450 L code = 756) MEAN PLATELET VOLUME (BEAKER) 11.1 fL 9.4-12.4 (test code = 754) NUCLEATED RED BLOOD CELLS 0 /100 WBC 0-0 (BEAKER) (test code = 413) NEUTROPHILS RELATIVE PERCENT 87 % (BEAKER) (test code = 429) LYMPHOCYTES RELATIVE PERCENT 8 % (BEAKER) (test code = 430) MONOCYTES RELATIVE PERCENT 3 % (BEAKER) (test code = 431) EOSINOPHILS RELATIVE PERCENT 1 % (BEAKER) (test code = 432) BASOPHILS RELATIVE PERCENT 0 % (BEAKER) (test code = 437) NEUTROPHILS ABSOLUTE COUNT 10.80 K/ L 1.78-5.38 H (BEAKER) (test code = 670) LYMPHOCYTES ABSOLUTE COUNT 0.99 K/ L 1.32-3.57 L (BEAKER) (test code = 414) MONOCYTES ABSOLUTE COUNT (BEAKER) 0.36 K/ L 0.30-0.82 (test code = 415) EOSINOPHILS ABSOLUTE COUNT 0.07 K/ L 0.04-0.54 (BEAKER) (test code = 416) BASOPHILS ABSOLUTE COUNT (BEAKER) 0.01 K/ L 0.01-0.08 (test code = 417) IMMATURE GRANULOCYTES-RELATIVE 1 % 0-1 PERCENT (BEAKER) (test code = 2801) CSF CULTURE + GRAM [id number] 15:47:31 Test Item Value Reference Interpretation Comments Range CULTURE (BEAKER) STAPHYLOCOCCUS A <1+ Staph ylococcus (test code = 1095) EPIDERMIDIS epidermid is Clindamycin (test R code = 10) Erythromycin (test R code = 4) Linezolid (test code S = 40) Nitrofurantoin (test S code = 23) Oxacillin (test code R = 14) Rifampin (test code = S 43) Trimethoprim + S Sulfamethoxazole (test code = 47) Vancomycin (test code S = 13) GRAM STAIN RESULT <1+ WBCs (BEAKER) (test code = 1123) GRAM STAIN RESULT No organisms seen (BEAKER) (test code = 100820) GRAM STAIN RESULT No organisms seen (BEAKER) (test code = 138824) [id number] 14:01:00 Test Item Value Reference Range Interpretation Comments Haptoglobin (test code = 347 mg/dL 14-258 H 4542-7) BANDAR (test code = BANDAR) Sustainability Specialist ID - EOOperator ID - EOOperator ID - EO Lab Interpretation (test Abnormal code = 82925-3) [facility] 14:01:00 Test Item Value Reference Range Interpretation Comments HAPTOGLOBIN (BEAKER) (test code = 347 mg/dL 14-258 H 366) Sustainability Specialist ID - EOOperator ID - EOOperator ID - EOPOCT-GLUCOSE [id number] 12:27:34 Test Item Value Reference Range Interpretation Comments POC-GLUCOSE METER 190 mg/dL 70-110 H : TESTED A T [facility] (BEAKER) (test code = [facility], 1538) [address]: Sustainability Specialist/Techni salma ID = [id number] for RODRIGUEZ REILLY [id number] 12:23:44 Test Item Value Reference Range Interpretation Comments PHOSPHORUS (BEAKER) (test code = 4.5 mg/dL 2.3-4.7 604) Sustainability Specialist ID - ANÍBAL CHEPATIC FUNCTION [id number] 12:23:43 Test Item Value Reference Range Interpretation Comments TOTAL PROTEIN (BEAKER) (test code = 5.0 gm/dL 6.0-8.3 L 770) ALBUMIN (BEAKER) (test code = 1145) 2.3 g/dL 3.5-5.0 L BILIRUBIN TOTAL (BEAKER) (test code 0.3 mg/dL 0.2-1.2 = 377) BILIRUBIN DIRECT (BEAKER) (test 0.2 mg/dL 0.1-0.5 code = 706) ALKALINE PHOSPHATASE (BEAKER) (test 64 U/L 40-150 code = 346) AST (SGOT) (BEAKER) (test code = 28 U/L 5-34 353) ALT (SGPT) (BEAKER) (test code = 36 U/L 6-55 347) Sustainability Specialist ID - ANÍBAL CDirect AHG (ROSELINE)/Direct [id number] 11:58:00 Test Item Value Reference Range Interpretation Comments Direct AHG-IGG (test code = 1006-6) NEGATIVE Direct AHG-C3B, C3D (test code = NEGATVIE 1003-3) [facility] Monica[facility]OR[facility], [id number] 11:41:00 Test Item Value Reference Range Interpretation Comments ABO Grouping (test code = 2588) O Rh Factor (test code = 2589) POS [facility] MonicaReticulocyte [id number] 11:35:23 Test Item Value Reference Range Interpretation Comments % Retic (test code = 3.1 % 0.5-1.8 H 23454-4) BANDAR (test code = BANDAR) Sustainability Specialist ID - [id number] Lab Interpretation (test Abnormal code = 34216-9) [facility] MonicaRETICULOCYTE [id number] 11:35:23 Test Item Value Reference Range Interpretation Comments RETICULOCYTE COUNT PCT (BEAKER) (test 3.1 % 0.5-1.8 H code = 575) Sustainability Specialist ID - [id number], CHEST, 1 VIEW, NON [id number] 11:33:00Reason for exam:->intubatedShould this be performed at the bedside?->Yes [facility] 1950 Sex: MFINAL REPORT Exam: RAD, CHEST, 1 VIEW, NON DEPTDate: 06/27/2021 11:30 AM Indication:intubatedComparison: 06/26/2021 FINDINGS: Lines/Tubes/Devices: Endotracheal tube in place with distal tip measuring 4.2 cm above the alexia. Enteric tube in place seen coursing below the diaphragm. Status post sternotomy. Left upper extremity midline in place. Lungs/pleura:Borderline lung volumes. Prominent vascular and interstitial markings. Patchy bilateral airspace opacities. Trace bilateral pleural effusions. No pneumothorax. Heart/Mediastinum:Unchanged Bones/Soft Tissues: No acute osseous abnormality. Upper abdomen: Unremarkable. IMPRESSION:Lines and tubes as above.Borderline lung volumes.Prominent vascular and interstitial markings. Congestion/interstitial edema.Patchy bilateral airspace opacities. May represent multifocal infectious process versus edema.Trace bilateral effusions. Signed: Kelvin Sosa MDReport Verified Date/Time: 06/27/2021 11:33:06 Reading Location: [facility] Reading Room POCT-GLUCOSE [id number] 09:51:06 Test Item Value Reference Range Interpretation Comments POC-GLUCOSE METER 252 mg/dL 70-110 H : TESTED A T [facility] 6720 (BEAKER) (test code = [facility] [place], 1538) [address]: Sustainability Specialist/Techni salma ID = [id number] for RODRIGUEZ REILLY BLOOD [id number] 09:15:35 Test Item Value Reference Range Interpretation Comments CULTURE A From Aerobic An d (BEAKER) (test Anaerobic Bot tles code = 1095) Coagulase negat danny Staphylococcus GRAM STAIN From aerobic and RESULT (BEAKER) anaerobic (test code = bottles: gram 1123) positive cocci in clusters (CELLAVISION MANUAL DIFF)2021-06-27 06:51:06 Test Item Value Reference Range Interpretation Comments NEUTROPHILS - REL 92 % (CELLAVISION)(BEAKER) (test code = 2816) LYMPHOCYTES - REL 4 % (CELLAVISION)(BEAKER) (test code = 2817) MONOCYTES - REL 3 % (CELLAVISION)(BEAKER) (test code = 2818) BANDS - REL (CELLAVISION)(BEAKER) 1 % 0-10 (test code = 2826) NEUTROPHILS - ABS 14.08 K/ul 1.78-5.38 H (CELLAVISION)(BEAKER) (test code = 2830) LYMPHOCYTES - ABS 0.61 K/ul 1.32-3.57 L (CELLAVISION)(BEAKER) (test code = 2831) MONOCYTES - ABS 0.46 K/uL 0.30-0.82 (CELLAVISION)(BEAKER) (test code = 2832) BANDS - ABS (CELLAVISION)(BEAKER) 0.15 K/uL 0.00-0.80 (test code = 2840) TOTAL COUNTED (BEAKER) (test code 100 = 1351) WBC MORPHOLOGY (BEAKER) (test code Normal = 487) PLT MORPHOLOGY (BEAKER) (test code Normal = 486) POLYCHROMATOPHILLIC RBCS(BEAKER) 1+ few (test code = 478) ANISOCYTOSIS (BEAKER) (test code = 1+ few 961) MICROCYTES (BEAKER) (test code = 1+ few 965) POIKILOCYTES (BEAKER) (test code = 1+ few 966) SPHEROCYTES (BEAKER) (test code = 1+ few 768) OVALOCYTES (BEAKER) (test code = 1+ few 477) ARTIFACT (CELLAVISION)(BEAKER) Present (test code = 3432) PLATELET CONCENTRATION Decreased (CELLAVISION)(BEAKER) (test code = 3438) Sustainability Specialist ID - Bayron comments: Slide comments:CBC W/PLT COUNT & AUTO [id number] 06:51:04 Test Item Value Reference Range Interpretation Comments WHITE BLOOD CELL COUNT (BEAKER) 15.3 K/ L 3.5-10.5 H (test code = 775) RED BLOOD CELL COUNT (BEAKER) 2.79 M/ L 4.63-6.08 L (test code = 761) HEMOGLOBIN (BEAKER) (test code = 7.9 GM/DL 13.7-17.5 L 410) HEMATOCRIT (BEAKER) (test code = 25.8 % 40.1-51.0 L 411) MEAN CORPUSCULAR VOLUME (BEAKER) 92.5 fL 79.0-92.2 H (test code = 753) MEAN CORPUSCULAR HEMOGLOBIN 28.3 pg 25.7-32.2 (BEAKER) (test code = 751) MEAN CORPUSCULAR HEMOGLOBIN CONC 30.6 GM/DL 32.3-36.5 L (BEAKER) (test code = 752) RED CELL DISTRIBUTION WIDTH 17.7 % 11.6-14.4 H (BEAKER) (test code = 412) PLATELET COUNT (BEAKER) (test 145 K/CU MM 150-450 L code = 756) MEAN PLATELET VOLUME (BEAKER) 11.3 fL 9.4-12.4 (test code = 754) NUCLEATED RED BLOOD CELLS 0 /100 WBC 0-0 (BEAKER) (test code = 413) LACTATE DEHYDROGENASE (LDH)2021-06-27 03:55:00 Test Item Value Reference Range Interpretation Comments LACTATE DEHYDROGENASE (BEAKER) (test 433 U/L 125-220 H code = 635) Sustainability Specialist ID - [id number] 03:54:59 Test Item Value Reference Range Interpretation Comments MAGNESIUM (BEAKER) (test code = 2.2 mg/dL 1.6-2.6 627) Sustainability Specialist ID - DBBASIC METABOLIC [id number] 03:54:58 Test Item Value Reference Range Interpretation Comments SODIUM (BEAKER) 141 meq/L 136-145 (test code = 381) POTASSIUM (BEAKER) 3.6 meq/L 3.5-5.1 (test code = 379) CHLORIDE (BEAKER) 114 meq/L 98-107 H (test code = 382) CO2 (BEAKER) (test 18 meq/L 22-29 L code = 355) BLOOD UREA NITROGEN 60 mg/dL 7-21 H (BEAKER) (test code = 354) CREATININE (BEAKER) 2.06 mg/dL 0.57-1.25 H (test code = 358) GLUCOSE RANDOM 315 mg/dL 70-105 H (BEAKER) (test code = 652) CALCIUM (BEAKER) 8.0 mg/dL 8.4-10.2 L (test code = 697) EGFR (BEAKER) (test 32 mL/min/1.73 ESTIMA OZIEL GFR IS code = 1092) sq m NOT ACCURATE CREATININE CLEARANCE IN PREDICTING GLOMERULAR FILTRATION RATE . ESTIMATED GFR I S NOT APPLICABLE FOR DIALYSIS PATIEN TS. Sustainability Specialist ID - [id number] 03:02:58 Test Item Value Reference Range Interpretation Comments PARTIAL THROMBOPLASTIN TIME 64.5 seconds 22.5-36.0 H (BEAKER) (test code = 760) BLOOD GAS, [id number] 02:33:54 Test Item Value Reference Range Interpretation Comments PH ARTERIAL (BEAKER) (test code = 7.43 7.35-7.45 383) PCO2 ARTERIAL (BEAKER) (test code 30 mm Hg 35-45 L = 384) PO2 ARTERIAL (BEAKER) (test code 152 mm Hg 80-90 H = 385) O2 SATURATION ARTERIAL (BEAKER) 99.0 % 96.0-97.0 H (test code = 386) HCO3 ARTERIAL (BEAKER) (test code 20 mmol/L 21-29 L = 388) BASE EXCESS ARTERIAL (BEAKER) -3.9 mmol/L -2.0-3.0 L (test code = 387) PATIENT TEMPERATURE (BEAKER) 37.2 (test code = 1818) FIO2 (BEAKER) (test code = 1819) 50.0 POCT-GLUCOSE [id number] 18:29:31 Test Item Value Reference Range Interpretation Comments POC-GLUCOSE METER 236 mg/dL 70-110 H : TESTED A T [facility] 6720 (BEAKER) (test code = [facility], 1538) [address]: Sustainability Specialist/Techni salma ID = [id number] for [facility] (contract)[facility] BASIC METABOLIC [id number] 15:29:17 Test Item Value Reference Range Interpretation Comments SODIUM (BEAKER) 145 meq/L 136-145 (test code = 381) POTASSIUM (BEAKER) 3.8 meq/L 3.5-5.1 (test code = 379) CHLORIDE (BEAKER) 117 meq/L 98-107 H (test code = 382) CO2 (BEAKER) (test 21 meq/L 22-29 L code = 355) BLOOD UREA NITROGEN 54 mg/dL 7-21 H (BEAKER) (test code = 354) CREATININE (BEAKER) 2.03 mg/dL 0.57-1.25 H (test code = 358) GLUCOSE RANDOM 251 mg/dL 70-105 H (BEAKER) (test code = 652) CALCIUM (BEAKER) 8.3 mg/dL 8.4-10.2 L (test code = 697) EGFR (BEAKER) (test 32 mL/min/1.73 ESTIMA OZIEL GFR IS code = 1092) sq m NOT ACCURATE CREATININE CLEARANCE IN PREDICTING GLOMERULAR FILTRATION RATE . ESTIMATED GFR I S NOT APPLICABLE FOR DIALYSIS PATIEN TS. Sustainability Specialist ID - [id number] 15:29:17 Test Item Value Reference Range Interpretation Comments MAGNESIUM (BEAKER) (test code = 2.3 mg/dL 1.6-2.6 627) Sustainability Specialist ID - DBBLOOD GAS, [id number] 15:17:28 Test Item Value Reference Range Interpretation Comments PH ARTERIAL (BEAKER) (test code = 7.45 7.35-7.45 383) PCO2 ARTERIAL (BEAKER) (test code 29 mm Hg 35-45 L = 384) PO2 ARTERIAL (BEAKER) (test code 199 mm Hg 80-90 H = 385) O2 SATURATION ARTERIAL (BEAKER) 99.4 % 96.0-97.0 H (test code = 386) HCO3 ARTERIAL (BEAKER) (test code 20 mmol/L 21-29 L = 388) BASE EXCESS ARTERIAL (BEAKER) -3.5 mmol/L -2.0-3.0 L (test code = 387) PATIENT TEMPERATURE (BEAKER) 37.9 (test code = 1818) FIO2 (BEAKER) (test code = 1819) 40.0 CBC W/PLT COUNT & AUTO [id number] 15:13:57 Test Item Value Reference Range Interpretation Comments WHITE BLOOD CELL COUNT (BEAKER) 15.2 K/ L 3.5-10.5 H (test code = 775) RED BLOOD CELL COUNT (BEAKER) 2.96 M/ L 4.63-6.08 L (test code = 761) HEMOGLOBIN (BEAKER) (test code = 8.3 GM/DL 13.7-17.5 L 410) HEMATOCRIT (BEAKER) (test code = 27.0 % 40.1-51.0 L 411) MEAN CORPUSCULAR VOLUME (BEAKER) 91.2 fL 79.0-92.2 (test code = 753) MEAN CORPUSCULAR HEMOGLOBIN 28.0 pg 25.7-32.2 (BEAKER) (test code = 751) MEAN CORPUSCULAR HEMOGLOBIN CONC 30.7 GM/DL 32.3-36.5 L (BEAKER) (test code = 752) RED CELL DISTRIBUTION WIDTH 17.7 % 11.6-14.4 H (BEAKER) (test code = 412) PLATELET COUNT (BEAKER) (test 159 K/CU MM 150-450 code = 756) MEAN PLATELET VOLUME (BEAKER) 10.9 fL 9.4-12.4 (test code = 754) NUCLEATED RED BLOOD CELLS 0 /100 WBC 0-0 (BEAKER) (test code = 413) NEUTROPHILS RELATIVE PERCENT 89 % (BEAKER) (test code = 429) LYMPHOCYTES RELATIVE PERCENT 7 % (BEAKER) (test code = 430) MONOCYTES RELATIVE PERCENT 3 % (BEAKER) (test code = 431) EOSINOPHILS RELATIVE PERCENT 0 % (BEAKER) (test code = 432) BASOPHILS RELATIVE PERCENT 0 % (BEAKER) (test code = 437) NEUTROPHILS ABSOLUTE COUNT 13.62 K/ L 1.78-5.38 H (BEAKER) (test code = 670) LYMPHOCYTES ABSOLUTE COUNT 1.09 K/ L 1.32-3.57 L (BEAKER) (test code = 414) MONOCYTES ABSOLUTE COUNT (BEAKER) 0.39 K/ L 0.30-0.82 (test code = 415) EOSINOPHILS ABSOLUTE COUNT 0.00 K/ L 0.04-0.54 L (BEAKER) (test code = 416) BASOPHILS ABSOLUTE COUNT (BEAKER) 0.02 K/ L 0.01-0.08 (test code = 417) IMMATURE GRANULOCYTES-RELATIVE 1 % 0-1 PERCENT (BEAKER) (test code = 2801) RAD, ABDOMEN/KUB, 1 VIEW [id number] 14:07:00Reason for exam:->r/o ileusShould this be performed at the bedside?->Yes [facility] 1950 Sex: MFINAL REPORT Exam: RAD, ABDOMEN/KUB, 1 VIEW APDate: 06/26/2021 2:04 PM Indication:r/o ileus COMPARISON: 06/25/2021 DISCUSSION/IMPRESSION: Bibasilar airspace opacities noted. Enteric tube in place coiling within the gastric lumen. Nonspecific bowel gas pattern. Scattered small bowel gas within the lower midabdomen and small amount of gas seen within the right colon. No evidence of free air within the limitations of this portable study. 0.4 cm density overlying the right iliac crest. 3.4 cm calcific structure projecting over the left mid abdomen. Signed: Kelvin Sosa Verified Date/Time: 06/26/2021 14:07:32 Reading Location: [facility] Radiology Reading Room POCT-GLUCOSE [id number] 12:54:58 Test Item Value Reference Range Interpretation Comments POC-GLUCOSE METER 211 mg/dL 70-110 H : TESTED A T [facility] 6720 (BEAKER) (test code = [place], 1538) [address]: Sustainability Specialist/Techni salma ID = [id number] for [facility] (contract), Suzanne berniealonso RAD, CHEST, 1 VIEW, NON [id number] 12:44:00Reason for exam:->ett positionShould this be performed at the bedside?->Yes [facility] 1950 Sex: MFINAL REPORT Exam: RAD, CHEST, 1 VIEW, NON DEPTDate: 06/26/2021 12:40 PM Indication:ett positionComparison: 06/25/2021 FINDINGS: Lines/Tubes/Devices: Endotracheal tube in place with distal tip measuring 5.5 cm above the alexia. Enteric tube in place seen coursing below the diaphragm with the distal tip projecting over the expected location the gastric lumen. Status post sternotomy. Left upper extremity midline in place. Lungs:Left base linear opacities. Interval development of patchy right base airspace opacities. Pleura: Trace bilateral pleural effusion. No pneumothorax. Heart/Mediastinum:Unchanged Bones/Soft Tissues: No acute osseous abnormality. Upper abdomen: Unremarkable. IMPRESSION:Lines and tubes as above.Left base linear opacities, likely atelectasis.Interval development of patchy right base airspace opacities, may represent aspiration versus an infectious process. Signed: Kelvin Sosa Verified Date/Time: 06/26/2021 12:44:05 Reading Location: [facility] Radiology Reading Room [id number] 12:13:42 Test Item Value Reference Range Interpretation Comments PARTIAL THROMBOPLASTIN TIME 57.5 seconds 22.5-36.0 H (BEAKER) (test code = 760) POCT-GLUCOSE [id number] 08:12:07 Test Item Value Reference Range Interpretation Comments POC-GLUCOSE METER 182 mg/dL 70-110 H : [facility] ([facility]ER[facility] (test code = [place] [place], 1538) [address]: Sustainability Specialist/Techni salma ID = [id number] for [facility] (contract), Suzanne mccray LACTATE DEHYDROGENASE (LDH)2021-06-26 05:24:45 Test Item Value Reference Range Interpretation Comments LACTATE DEHYDROGENASE (BEAKER) (test 323 U/L 125-220 H code = 635) Sustainability Specialist ID Cory KRISHNAMURTHY WHEPATIC FUNCTION [id number] 05:24:44 Test Item Value Reference Range Interpretation Comments TOTAL PROTEIN (BEAKER) (test code = 5.2 gm/dL 6.0-8.3 L 770) ALBUMIN (BEAKER) (test code = 1145) 2.4 g/dL 3.5-5.0 L BILIRUBIN TOTAL (BEAKER) (test code 0.4 mg/dL 0.2-1.2 = 377) BILIRUBIN DIRECT (BEAKER) (test 0.2 mg/dL 0.1-0.5 code = 706) ALKALINE PHOSPHATASE (BEAKER) (test 47 U/L 40-150 code = 346) AST (SGOT) (BEAKER) (test code = 27 U/L 5-34 353) ALT (SGPT) (BEAKER) (test code = 30 U/L 6-55 347) Sustainability Specialist ID Cory KRISHNAMURTHY [id number] 05:24:43 Test Item Value Reference Range Interpretation Comments PHOSPHORUS (BEAKER) (test code = 3.6 mg/dL 2.3-4.7 604) Sustainability Specialist ID Cory KRISHNAMURTHY WBASIC METABOLIC [id number] 05:24:42 Test Item Value Reference Range Interpretation Comments SODIUM (BEAKER) 147 meq/L 136-145 H (test code = 381) POTASSIUM (BEAKER) 3.5 meq/L 3.5-5.1 (test code = 379) CHLORIDE (BEAKER) 118 meq/L 98-107 H (test code = 382) CO2 (BEAKER) (test 21 meq/L 22-29 L code = 355) BLOOD UREA NITROGEN 52 mg/dL 7-21 H (BEAKER) (test code = 354) CREATININE (BEAKER) 1.85 mg/dL 0.57-1.25 H (test code = 358) GLUCOSE RANDOM 178 mg/dL 70-105 H (BEAKER) (test code = 652) CALCIUM (BEAKER) 8.3 mg/dL 8.4-10.2 L (test code = 697) EGFR (BEAKER) (test 36 mL/min/1.73 ESTIMA OZIEL GFR IS code = 1092) sq m NOT ACCURATE CREATININE CLEARANCE IN PREDICTING GLOMERULAR FILTRATION RATE . ESTIMATED GFR I S NOT APPLICABLE FOR DIALYSIS PATIEN TS. Sustainability Specialist ID - EMILIO [id number] 05:24:42 Test Item Value Reference Range Interpretation Comments MAGNESIUM (BEAKER) (test code = 2.2 mg/dL 1.6-2.6 627) Sustainability Specialist ID - EMILIO WPT/[id number] 05:09:28 Test Item Value Reference Interpretation Comments Range Protime (test code = 14.1 See_Comment [Autom ated 5902-2) message] The system which generated this result transmitted reference range : 11.9 - 14.2 seconds. The reference range was not used to interpret this result as normal/abnormal . INR (test code = 1.11 See_Comment [Automated 2451-6) message] The system which generated this result transmitted reference range : <=5.90. The reference range was not used to interpret this result as normal/abnormal . PTT (test code = 58.5 See_Comment H [Automated 13933-4) message] The system which generated this result transmitted reference range : 22.5 - 36.0 seconds. The reference range was not used to interpret this result as normal/abnormal . BANDAR (test code = RECOMMENDED BANDAR) COUMADIN/WARFARIN INR THERAPY RANGESSTANDARD DOSE: 2.0 - 3.0 Includes: PROPHYLAXIS for venous thrombosis, systemic embolization; TREATMENT for venous thrombosis and/or pulmonary embolus.HIGH RISK: Target INR is 2.5-3.5 for patients with mechanical heart valves. Lab Interpretation Abnormal (test code = 06609-5) [id number] 05:09:28 Test Item Value Reference Range Interpretation Comments PROTIME (BEAKER) (test 14.1 seconds 11.9-14.2 code = 759) INR (BEAKER) (test 1.11 See_Comment [Automat ed code = 370) message] The sy stem which generated this result transmitted reference range : <=5.90. The reference range was not used to interpret this result as normal/abnormal . PARTIAL THROMBOPLASTIN 58.5 seconds 22.5-36.0 H TIME (BEAKER) (test code = 760) RECOMMENDED COUMADIN/WARFARIN INR THERAPY RANGESSTANDARD DOSE: 2.0 - 3.0 Includes: PROPHYLAXIS for venous thrombosis, systemic embolization; TREATMENT for venous thrombosis and/or pulmonary embolus.HIGH RISK: Target INR is 2.5-3.5 for patients with mechanical heart valves.CBC W/PLT COUNT & AUTO [id number] 05:04:10 Test Item Value Reference Range Interpretation Comments WHITE BLOOD CELL COUNT (BEAKER) 13.2 K/ L 3.5-10.5 H (test code = 775) RED BLOOD CELL COUNT (BEAKER) 3.01 M/ L 4.63-6.08 L (test code = 761) HEMOGLOBIN (BEAKER) (test code = 8.3 GM/DL 13.7-17.5 L 410) HEMATOCRIT (BEAKER) (test code = 27.8 % 40.1-51.0 L 411) MEAN CORPUSCULAR VOLUME (BEAKER) 92.4 fL 79.0-92.2 H (test code = 753) MEAN CORPUSCULAR HEMOGLOBIN 27.6 pg 25.7-32.2 (BEAKER) (test code = 751) MEAN CORPUSCULAR HEMOGLOBIN CONC 29.9 GM/DL 32.3-36.5 L (BEAKER) (test code = 752) RED CELL DISTRIBUTION WIDTH 17.4 % 11.6-14.4 H (BEAKER) (test code = 412) PLATELET COUNT (BEAKER) (test 148 K/CU MM 150-450 L code = 756) MEAN PLATELET VOLUME (BEAKER) 10.9 fL 9.4-12.4 (test code = 754) NUCLEATED RED BLOOD CELLS 0 /100 WBC 0-0 (BEAKER) (test code = 413) NEUTROPHILS RELATIVE PERCENT 86 % (BEAKER) (test code = 429) LYMPHOCYTES RELATIVE PERCENT 10 % (BEAKER) (test code = 430) MONOCYTES RELATIVE PERCENT 3 % (BEAKER) (test code = 431) EOSINOPHILS RELATIVE PERCENT 0 % (BEAKER) (test code = 432) BASOPHILS RELATIVE PERCENT 0 % (BEAKER) (test code = 437) NEUTROPHILS ABSOLUTE COUNT 11.33 K/ L 1.78-5.38 H (BEAKER) (test code = 670) LYMPHOCYTES ABSOLUTE COUNT 1.37 K/ L 1.32-3.57 (BEAKER) (test code = 414) MONOCYTES ABSOLUTE COUNT (BEAKER) 0.35 K/ L 0.30-0.82 (test code = 415) EOSINOPHILS ABSOLUTE COUNT 0.04 K/ L 0.04-0.54 (BEAKER) (test code = 416) BASOPHILS ABSOLUTE COUNT (BEAKER) 0.00 K/ L 0.01-0.08 L (test code = 417) IMMATURE GRANULOCYTES-RELATIVE 1 % 0-1 PERCENT (BEAKER) (test code = 2801) BLOOD GAS, [id number] 04:58:03 Test Item Value Reference Range Interpretation Comments PH ARTERIAL (BEAKER) (test code = 7.47 7.35-7.45 H 383) PCO2 ARTERIAL (BEAKER) (test code 31 mm Hg 35-45 L = 384) PO2 ARTERIAL (BEAKER) (test code 162 mm Hg 80-90 H = 385) O2 SATURATION ARTERIAL (BEAKER) 99.2 % 96.0-97.0 H (test code = 386) HCO3 ARTERIAL (BEAKER) (test code 22 mmol/L 21-29 = 388) BASE EXCESS ARTERIAL (BEAKER) -1.3 mmol/L -2.0-3.0 (test code = 387) PATIENT TEMPERATURE (BEAKER) 37.0 (test code = 1818) FIO2 (BEAKER) (test code = 1819) 50.0 [id number] 00:51:37 Test Item Value Reference Range Interpretation Comments PARTIAL THROMBOPLASTIN TIME 99.4 seconds 22.5-36.0 H (BEAKER) (test code = 760) VANCOMYCIN LEVEL, [id number] 00:49:36 Test Item Value Reference Range Interpretation Comments VANCOMYCIN TROUGH (BEAKER) (test 24.3 ug/mL 10.0-20.0 H code = 522) Sustainability Specialist ID - DBCBC W/PLT COUNT & AUTO [id number] 00:47:38 Test Item Value Reference Range Interpretation Comments WHITE BLOOD CELL COUNT (BEAKER) 10.2 K/ L 3.5-10.5 (test code = 775) RED BLOOD CELL COUNT (BEAKER) 2.74 M/ L 4.63-6.08 L (test code = 761) HEMOGLOBIN (BEAKER) (test code = 7.7 GM/DL 13.7-17.5 L 410) HEMATOCRIT (BEAKER) (test code = 25.6 % 40.1-51.0 L 411) MEAN CORPUSCULAR VOLUME (BEAKER) 93.4 fL 79.0-92.2 H (test code = 753) MEAN CORPUSCULAR HEMOGLOBIN 28.1 pg 25.7-32.2 (BEAKER) (test code = 751) MEAN CORPUSCULAR HEMOGLOBIN CONC 30.1 GM/DL 32.3-36.5 L (BEAKER) (test code = 752) RED CELL DISTRIBUTION WIDTH 17.4 % 11.6-14.4 H (BEAKER) (test code = 412) PLATELET COUNT (BEAKER) (test 128 K/CU MM 150-450 L code = 756) MEAN PLATELET VOLUME (BEAKER) 11.0 fL 9.4-12.4 (test code = 754) NUCLEATED RED BLOOD CELLS 0 /100 WBC 0-0 (BEAKER) (test code = 413) NEUTROPHILS RELATIVE PERCENT 85 % (BEAKER) (test code = 429) LYMPHOCYTES RELATIVE PERCENT 11 % (BEAKER) (test code = 430) MONOCYTES RELATIVE PERCENT 4 % (BEAKER) (test code = 431) EOSINOPHILS RELATIVE PERCENT 0 % (BEAKER) (test code = 432) BASOPHILS RELATIVE PERCENT 0 % (BEAKER) (test code = 437) NEUTROPHILS ABSOLUTE COUNT 8.64 K/ L 1.78-5.38 H (BEAKER) (test code = 670) LYMPHOCYTES ABSOLUTE COUNT 1.14 K/ L 1.32-3.57 L (BEAKER) (test code = 414) MONOCYTES ABSOLUTE COUNT (BEAKER) 0.36 K/ L 0.30-0.82 (test code = 415) EOSINOPHILS ABSOLUTE COUNT 0.02 K/ L 0.04-0.54 L (BEAKER) (test code = 416) BASOPHILS ABSOLUTE COUNT (BEAKER) 0.00 K/ L 0.01-0.08 L (test code = 417) IMMATURE GRANULOCYTES-RELATIVE 1 % 0-1 PERCENT (BEAKER) (test code = 2801) POCT-GLUCOSE [id number] 00:14:13 Test Item Value Reference Range Interpretation Comments POC-GLUCOSE METER 186 mg/dL 70-110 H : TESTED A T [facility] 6720 (BEAKER) (test code = [place], 1538) [address]: Sustainability Specialist/Techni salma ID = [id number] for Jair garrett (contract), Antionette da MENINGITIS/ENCEPHALITIS [id number] 18:37:00 Test Item Value Reference Range Interpretation Comments E COLI K1 (test code = Not detected Not detected 53545-7) HAEMOPHILUS INFLUENZAE Not detected Not detected (test code = 39029-5) LISTERIA MONOCYTOGENES Not detected Not detected (test code = 25512-2) NEISSERIA MENINGITIDIS Not detected Not detected (test code = 73207-2) STREPTOCOCCUS Not detected Not detected AGALACTIAE (test code = 38919-0) STREPTOCOCCUS Not detected Not detected PNEUMONIAE (test code = 30196-7) Cytomegalovirus (CMV) Not detected Not detected (test code = 94222-4) ENTEROVIRUS (test code Not detected Not detected = 26411-1) Human herpesvirus 6 Not detected Not detected (HHV-6) (test code = 54772-4) Herpes simplex virus Not detected Not detected 1(HSV-1) (test code = 21429-3) HERPES SIMPLEX VIRUS Not detected Not detected 2(HSV-2) (test code = 40279-4) Human parechovirus Not detected Not detected (test code = 85665-9) Varicella-zoster virus Not detected Not detected (VZV) (test code = 86744-4) Cryptococcus Not detected Not detected neoformans/gattii (test code = 94268-0) BANDAR (test code = BANDAR) The performance of this test has not been specifically evaluated for CSF specimens from immunocompromised individuals. The effect of antibiotic treatment on test performance has not been evaluated. Other viruses and bacteria not targeted by this PCR panel cannot be excluded; therefore, clinical correlation and follow up of serology, culture results, and other molecular studies may be required. This sample was tested at the [facility] Molecular [facility]ostics [facility] using the [employer] Film[employer] Meningitis Encephalitis Panel. It is FDA cleared and has been verified and approved by the [facility] for clinical use. This laboratory is CLIA-certified and [employer] [place] [employer] (CAP)-accredited to perform high complexity testing. Lab Interpretation Normal (test code = 09473-8) [facility]ING[facility]IS[facility]ENCEPHALITIS [id number] 18:37:00 Test Item Value Reference Range Interpretation Comments ESCHERICHIA COLI K1 (test code = Not detected Not detected 20160204) HAEMOPHILUS INFLUENZAE (test Not detected Not detected code = 20160205) LISTERIA MONOCYTOGENES (test Not detected Not detected code = 20160206) NEISSERIA MENINGITIDIS (test Not detected Not detected code = 20160207) STREPTOCOCCUS AGALACTIAE (test Not detected Not detected code = 1932356) STREPTOCOCCUS PNEUMONIAE (test Not detected Not detected code = 2060240) CYTOMEGALOVIRUS (CMV) (test code Not detected Not detected = 5902163) ENTEROVIRUS (test code = Not detected Not detected 3709344) HUMAN HERPESVIRUS 6 (HHV-6) Not detected Not detected (test code = 5975472) HERPES SIMPLEX VIRUS 1(HSV-1) Not detected Not detected (test code = 5877311) HERPES SIMPLEX VIRUS 2(HSV-2) Not detected Not detected (test code = 0094788) HUMAN PARECHOVIRUS (test code = Not detected Not detected 6478972) VARICELLA-ZOSTER VIRUS (VZV) Not detected Not detected (test code = 5657386) CRYPTOCOCCUS NEOFORMANS/GATTII Not detected Not detected (test code = 7315750) The performance of this test has not been specifically evaluated for CSF specimens from immunocompromised individuals. The effect of antibiotic treatment on test performance has not been evaluated. Other viruses and bacteria not targeted by this PCR panel cannot be excluded; therefore, clinical correlation and follow up of serology, culture results, and other molecular studies may be required. This sample was tested at the [facility] using the [employer] FilmArray MeningitisEncephalitis Panel. It is FDA cleared and has been verified and approved by the [facility] for clinical use. This laboratory is CLIA-certified and [employer] [place] [employer] (CAP)-accredited to perform high complexity testing.POCT-GLUCOSE METER 2021-06-25 17:51:35 Test Item Value Reference Range Interpretation Comments POC-GLUCOSE METER 269 mg/dL 70-110 H : TESTED A T [facility] 6720 (BEAKER) (test code = [facility]REE[facility] Isa [facility], 1538) [address]: Sustainability Specialist/Techni salma ID = [id number] for Osito jones (contract)Sam BLOOD CULTURE IDENTIFICATION [id number] 17:50:57 Test Item Value Reference Interpretation Comments Range LISTERIA MONOCYTOGENES Not detected Not detected (test code = 20160206) STAPHYLOCOCCUS (test Detected Not detected A Coagula se negative code = 20160410) Staph specie s (CoNS)- methici llin resistantFirst- line therapy: Vancom ycin MecA DETECTED Possible contamination. The likelihood of pathogenicity i s increased if th e organism is observed in multiple blood cultures obtain ed from separate venipunctures. Reference Range : Not Detected STAPHYLOCOCCUS AUREUS Not detected Not detected (test code = 9062230) STREPTOCOCCUS (test code Not detected Not detected = 7156996) STREPTOCOCCUS AGALACTIAE Not detected Not detected (GROUP B) (test code = 1017279) STREPTOCOCCUS PNEUMONIAE Not detected Not detected (test code = 1481610) STREPTOCOCCUS PYOGENES Not detected Not detected (GROUP A) (test code = 4428052) ACINETOBACTER BAUMANNII Not detected Not detected (test code = 7312367) HAEMOPHILUS INFLUENZAE Not detected Not detected (test code = 4320257) NEISSERIA MENINGITIDIS Not detected Not detected (test code = 9875500) ENTEROBACTERIACEAE (test Not detected Not detected code = 0379858) ENTEROBACTER CLOACOE Not detected Not detected COMPLEX (test code = 2794043) KLEBSIELLA OXYTOCA (test Not detected Not detected code = 2653283) KLEBSIELLA PNEUMONIAE Not detected Not detected (test code = 1650) PROTEUS (test code = Not detected Not detected 3224475) SERRATIA MARCESCENS Not detected Not detected (test code = 3422816) SHIRIN ALBICANS (test Not detected Not detected code = 0776781) SHIRIN GLABRATA (test Not detected Not detected code = 0210179) SHIRIN KRUSEI (test Not detected Not detected code = 2296174) SHIRIN PARAPSILOSIS Not detected Not detected (test code = 2765211) SHIRIN TROPICALIS (test Not detected Not detected code = 9104812) ESCHERICHIA COLI (test Not detected Not detected code = 9177575) METHICILLIN-RESISTANCE Detected Not detected A Note: Antimicrobial GENE (test code = resistance can 2539826) occur via multi ple mechanisms. A N ot Detected result for the [employer] antimicrobial resistance gene assays does not indicate antimicrobial susceptibility. Subculturing is required for species identification and susceptibility testing of isolates. VANCOMYCIN-RESISTANCE GENE (test code = 9745801) CARBAPENEM-RESISTANCE GENE (test code = 1117044) ENTEROCOCCUS-BEAKER Not detected Not detected (test code = 5389204) PSEUDOMONAS Not detected Not detected AERUGINOSA-BEAKER (test code = 0626739) Other bacteria and resistance markers not targeted by this PCR panel cannot be excluded; therefore clinical correlation and follow up of serology, culture results, and other molecular studies is required. The results are not intended to be used as the sole means for clinical diagnosis or patient management decisions. This sample was tested at the [facility] Molecular [facility]ostics Laboratory using the [employer] Blood Culture ID Panel. It is FDA cleared and has been verified and approved by the [facility] for clinical use. This laboratory is CLIA-certified and College ofAmerican Pathologists (CAP)-accredited to perform high complexity testing.BASIC METABOLIC [id number] 17:13:49 Test Item Value Reference Range Interpretation Comments SODIUM (BEAKER) 149 meq/L 136-145 H (test code = 381) POTASSIUM (BEAKER) 4.7 meq/L 3.5-5.1 Specimen moderately (test code = 379) hemolyzed CHLORIDE (BEAKER) 121 meq/L 98-107 H (test code = 382) CO2 (BEAKER) (test 21 meq/L 22-29 L code = 355) BLOOD UREA NITROGEN 55 mg/dL 7-21 H (BEAKER) (test code = 354) CREATININE (BEAKER) 2.00 mg/dL 0.57-1.25 H Specimen moderately (test code = 358) hemolyzed GLUCOSE RANDOM 290 mg/dL 70-105 H (BEAKER) (test code = 652) CALCIUM (BEAKER) 8.3 mg/dL 8.4-10.2 L (test code = 697) EGFR (BEAKER) (test 33 mL/min/1.73 ESTIMA OZIEL GFR IS code = 1092) sq m NOT ACCURATE CREATININE CLEARANCE IN PREDICTING GLOMERULAR FILTRATION RATE . ESTIMATED GFR I S NOT APPLICABLE FOR DIALYSIS PATIEN TS. Sustainability Specialist ID - JAKE [id number] 17:13:17 Test Item Value Reference Range Interpretation Comments MAGNESIUM (BEAKER) 2.4 mg/dL 1.6-2.6 Specimen moderately (test code = 627) hemolyzed Sustainability Specialist ID - JAKE MCBC W/PLT COUNT & AUTO [id number] 17:06:41 Test Item Value Reference Range Interpretation Comments WHITE BLOOD CELL COUNT (BEAKER) 8.6 K/ L 3.5-10.5 (test code = 775) RED BLOOD CELL COUNT (BEAKER) 2.72 M/ L 4.63-6.08 L (test code = 761) HEMOGLOBIN (BEAKER) (test code = 7.7 GM/DL 13.7-17.5 L 410) HEMATOCRIT (BEAKER) (test code = 25.2 % 40.1-51.0 L 411) MEAN CORPUSCULAR VOLUME (BEAKER) 92.6 fL 79.0-92.2 H (test code = 753) MEAN CORPUSCULAR HEMOGLOBIN 28.3 pg 25.7-32.2 (BEAKER) (test code = 751) MEAN CORPUSCULAR HEMOGLOBIN CONC 30.6 GM/DL 32.3-36.5 L (BEAKER) (test code = 752) RED CELL DISTRIBUTION WIDTH 17.5 % 11.6-14.4 H (BEAKER) (test code = 412) PLATELET COUNT (BEAKER) (test 128 K/CU MM 150-450 L code = 756) MEAN PLATELET VOLUME (BEAKER) 11.0 fL 9.4-12.4 (test code = 754) NUCLEATED RED BLOOD CELLS 0 /100 WBC 0-0 (BEAKER) (test code = 413) NEUTROPHILS RELATIVE PERCENT 83 % (BEAKER) (test code = 429) LYMPHOCYTES RELATIVE PERCENT 12 % (BEAKER) (test code = 430) MONOCYTES RELATIVE PERCENT 5 % (BEAKER) (test code = 431) EOSINOPHILS RELATIVE PERCENT 0 % (BEAKER) (test code = 432) BASOPHILS RELATIVE PERCENT 0 % (BEAKER) (test code = 437) NEUTROPHILS ABSOLUTE COUNT 7.10 K/ L 1.78-5.38 H (BEAKER) (test code = 670) LYMPHOCYTES ABSOLUTE COUNT 1.03 K/ L 1.32-3.57 L (BEAKER) (test code = 414) MONOCYTES ABSOLUTE COUNT (BEAKER) 0.39 K/ L 0.30-0.82 (test code = 415) EOSINOPHILS ABSOLUTE COUNT 0.00 K/ L 0.04-0.54 L (BEAKER) (test code = 416) BASOPHILS ABSOLUTE COUNT (BEAKER) 0.00 K/ L 0.01-0.08 L (test code = 417) IMMATURE GRANULOCYTES-RELATIVE 1 % 0-1 PERCENT (BEAKER) (test code = 2801) [id number] 17:02:37 Test Item Value Reference Range Interpretation Comments PARTIAL THROMBOPLASTIN TIME 69.1 seconds 22.5-36.0 H (BEAKER) (test code = 760) BLOOD [id number] 17:00:56 Test Item Value Reference Range Interpretation Comments CULTURE (BEAKER) (test No growth in 5 days code = 1095) The specimen volume collected for this blood culture was below the optimum (10 mL per bottle or 20 mL total). Use of lower volumes may adversely affect recovery and/or detection times of some organisms.BLOOD GAS, [id number] 16:46:57 Test Item Value Reference Range Interpretation Comments PH ARTERIAL (BEAKER) (test code = 7.44 7.35-7.45 383) PCO2 ARTERIAL (BEAKER) (test code 32 mm Hg 35-45 L = 384) PO2 ARTERIAL (BEAKER) (test code 137 mm Hg 80-90 H = 385) O2 SATURATION ARTERIAL (BEAKER) 98.8 % 96.0-97.0 H (test code = 386) HCO3 ARTERIAL (BEAKER) (test code 21 mmol/L 21-29 = 388) BASE EXCESS ARTERIAL (BEAKER) -2.9 mmol/L -2.0-3.0 L (test code = 387) PATIENT TEMPERATURE (BEAKER) 37.3 (test code = 1818) FIO2 (BEAKER) (test code = 1819) 60.0 [id number] 13:29:22 Test Item Value Reference Range Interpretation Comments PARTIAL THROMBOPLASTIN TIME 158.1 seconds 22.5-36.0 HH (BEAKER) (test code = 760) Osmolality, [id number] 13:22:03 Test Item Value Reference Range Interpretation Comments Osmolality Serum (test 339 See_Comment H [Aut omated message] code = 2692-2) The system [facility] generated this result transmitted ref erence range: 275 - 29 5 mOsm/kg. The reference range was not used to int erpret this result as normal/abnormal . Lab Interpretation (test Abnormal code = 95654-6) [facility] [id number] 13:22:03 Test Item Value Reference Range Interpretation Comments OSMOLALITY, SERUM (BEAKER) (test 339 mOsm/kg 275-295 H code = 615) Osmolality, [id number] 12:59:18 Test Item Value Reference Range Interpretation Comments Osmolality, Ur (test code 536 See_Comment [ Automated message] = 2695-5) The system [employer] generated this result transmitted ref erence range: 50-1,200 mOsm/kg mOsm/kg . The reference range was not used to int erpret this result as normal/abnormal . Lab Interpretation (test Normal code = 62814-5) [facility], [id number] 12:59:18 Test Item Value Reference Range Interpretation Comments OSMOLALITY URINE 536 mOsm/kg See_Comment [Automated message] (GALE) (test code = The sy stem which 614) generated this result transmitted ref erence range: 50-1,200 mOsm/kg. The reference range was not used to int erpret this result as normal/abnormal . POCT-GLUCOSE [id number] 12:58:04 Test Item Value Reference Range Interpretation Comments POC-GLUCOSE METER 209 mg/dL 70-110 H : TESTED A T [facility] 6720 (GALE) (test code = [place], 1538) [address]: Sustainability Specialist/Techni salma ID = [id number] for Osito jones (contract)Sam RAD, CHEST, 1 VIEW, NON [id number] 11:16:00Reason for exam:->Post-opShould this be performed at the bedside?->Yes [facility] 1950 Sex: MFINAL REPORT EXAMINATION: RAD, CHEST, 1 VIEW, NON DEPT. INDICATION: 70-year-old male, postoperative examination. COMPARISON: Chest radiograph dated 06/24/2021. FINDINGS:An endotracheal tube terminates 5.1 cm above the alexia. An enteric tube courses below the level of the diaphragms.The cardiomediastinal silhouette appears normal. Pulmonary devin and vasculature are within normal barrera its. Mild left basilar hazy opacity. No pleural effusion. No pneumothorax. Sternotomy wires are noted. Visualized soft tissues are unremarkable. IMPRESSION:1.Lines and tubes as above.2.Mild left basilar hazy opacity, possibly atelectasis. Signed: Clayton Vargas Verified Date/Time: 06/25/2021 11: 16:06 Reading Location: [address] Ortho Consult Reading Room RAD, ABDOMEN/KUB, 1 VIEW [id number] 10:57:00Reason for exam:->ileusShould this be performed at the bedside?->[facility] : 1950 Sex: MFINAL REPORT EXAMINATION: RAD, ABDOMEN/KUB, 1 VIEW AP. INDICATION: 70-year-old male with ileus. COMPARISON: Abdominal radiograph dated 06/24/2021. FINDINGS:An enteric tube is noted looping in the stomach with tip overlying the gastric fundus. Gas is scattered throughout the bowel. Nodilated loops of bowel. No evidence of pneumatosis or portal venous gas. Unchanged left calcified renal cyst. Mild degenerative changes of the bilateral hips. A 1.3 cm radiopaque density overlies the right iliac crest. IMPRESSION:Interval improvement in dilated loops of bowel. An enteric tube is notedlooping in the stomach. Signed: Clayton Vargas Verified Date/Time: 06/25/2021 10:57:06 Reading Location: [facility] C013X Ortho Consult Reading Room [id number] 07:07:59 Test Item Value Reference Range Interpretation Comments PARTIAL THROMBOPLASTIN TIME 69.3 seconds 22.5-36.0 H (BEAKER) (test code = 760) POCT-GLUCOSE [id number] 05:50:40 Test Item Value Reference Range Interpretation Comments POC-GLUCOSE METER 200 mg/dL 70-110 H : TESTED A T [facility] 6720 (BEAKER) (test code = [place], 1538) [address]: Sustainability Specialist/Techni salma ID = [id number] for Se ramirez (contract), Vandana ena BASIC METABOLIC [id number] 05:26:47 Test Item Value Reference Range Interpretation Comments SODIUM (BEAKER) 152 meq/L 136-145 H (test code = 381) POTASSIUM (BEAKER) 4.4 meq/L 3.5-5.1 (test code = 379) CHLORIDE (BEAKER) 123 meq/L 98-107 H (test code = 382) CO2 (BEAKER) (test 21 meq/L 22-29 L code = 355) BLOOD UREA NITROGEN 58 mg/dL 7-21 H (BEAKER) (test code = 354) CREATININE (BEAKER) 2.05 mg/dL 0.57-1.25 H (test code = 358) GLUCOSE RANDOM 226 mg/dL 70-105 H (BEAKER) (test code = 652) CALCIUM (BEAKER) 8.4 mg/dL 8.4-10.2 (test code = 697) EGFR (BEAKER) (test 32 mL/min/1.73 ESTIMA OZIEL GFR IS code = 1092) sq m NOT ACCURATE CREATININE CLEARANCE IN PREDICTING GLOMERULAR FILTRATION RATE . ESTIMATED GFR I S NOT APPLICABLE FOR DIALYSIS PATIEN TS. Sustainability Specialist ID - JAKE EPATIC FUNCTION [id number] 05:18:03 Test Item Value Reference Range Interpretation Comments TOTAL PROTEIN (BEAKER) (test code = 5.1 gm/dL 6.0-8.3 L 770) ALBUMIN (BEAKER) (test code = 1145) 2.4 g/dL 3.5-5.0 L BILIRUBIN TOTAL (BEAKER) (test code 0.3 mg/dL 0.2-1.2 = 377) BILIRUBIN DIRECT (BEAKER) (test 0.2 mg/dL 0.1-0.5 code = 706) ALKALINE PHOSPHATASE (BEAKER) (test 47 U/L 40-150 code = 346) AST (SGOT) (BEAKER) (test code = 25 U/L 5-34 353) ALT (SGPT) (BEAKER) (test code = 32 U/L 6-55 347) Sustainability Specialist ID Cory JOSEPH MLACTATE DEHYDROGENASE (LDH)2021-06-25 05:18:03 Test Item Value Reference Range Interpretation Comments LACTATE DEHYDROGENASE (BEAKER) (test 293 U/L 125-220 H code = 635) Sustainability Specialist ID - JAKE [id number] 05:18:02 Test Item Value Reference Range Interpretation Comments PHOSPHORUS (BEAKER) (test code = 3.8 mg/dL 2.3-4.7 604) Sustainability Specialist ID - JAKE [id number] 05:18:01 Test Item Value Reference Range Interpretation Comments MAGNESIUM (BEAKER) (test code = 2.3 mg/dL 1.6-2.6 627) Sustainability Specialist ID - JAKE MCBC W/PLT COUNT & AUTO [id number] 05:14:08 Test Item Value Reference Range Interpretation Comments WHITE BLOOD CELL COUNT (BEAKER) 12.9 K/ L 3.5-10.5 H (test code = 775) RED BLOOD CELL COUNT (BEAKER) 3.03 M/ L 4.63-6.08 L (test code = 761) HEMOGLOBIN (BEAKER) (test code = 8.4 GM/DL 13.7-17.5 L 410) HEMATOCRIT (BEAKER) (test code = 28.1 % 40.1-51.0 L 411) MEAN CORPUSCULAR VOLUME (BEAKER) 92.7 fL 79.0-92.2 H (test code = 753) MEAN CORPUSCULAR HEMOGLOBIN 27.7 pg 25.7-32.2 (BEAKER) (test code = 751) MEAN CORPUSCULAR HEMOGLOBIN CONC 29.9 GM/DL 32.3-36.5 L (BEAKER) (test code = 752) RED CELL DISTRIBUTION WIDTH 17.6 % 11.6-14.4 H (BEAKER) (test code = 412) PLATELET COUNT (BEAKER) (test 197 K/CU MM 150-450 code = 756) MEAN PLATELET VOLUME (BEAKER) 11.1 fL 9.4-12.4 (test code = 754) NUCLEATED RED BLOOD CELLS 0 /100 WBC 0-0 (BEAKER) (test code = 413) NEUTROPHILS RELATIVE PERCENT 85 % (BEAKER) (test code = 429) LYMPHOCYTES RELATIVE PERCENT 9 % (BEAKER) (test code = 430) MONOCYTES RELATIVE PERCENT 5 % (BEAKER) (test code = 431) EOSINOPHILS RELATIVE PERCENT 0 % (BEAKER) (test code = 432) BASOPHILS RELATIVE PERCENT 0 % (BEAKER) (test code = 437) NEUTROPHILS ABSOLUTE COUNT 11.05 K/ L 1.78-5.38 H (BEAKER) (test code = 670) LYMPHOCYTES ABSOLUTE COUNT 1.20 K/ L 1.32-3.57 L (BEAKER) (test code = 414) MONOCYTES ABSOLUTE COUNT (BEAKER) 0.62 K/ L 0.30-0.82 (test code = 415) EOSINOPHILS ABSOLUTE COUNT 0.00 K/ L 0.04-0.54 L (BEAKER) (test code = 416) BASOPHILS ABSOLUTE COUNT (BEAKER) 0.01 K/ L 0.01-0.08 (test code = 417) IMMATURE GRANULOCYTES-RELATIVE 0 % 0-1 PERCENT (BEAKER) (test code = 2801) BLOOD GAS, [id number] 04:53:39 Test Item Value Reference Range Interpretation Comments PH ARTERIAL (BEAKER) (test code = 7.44 7.35-7.45 383) PCO2 ARTERIAL (BEAKER) (test code 32 mm Hg 35-45 L = 384) PO2 ARTERIAL (BEAKER) (test code 170 mm Hg 80-90 H = 385) O2 SATURATION ARTERIAL (BEAKER) 99.2 % 96.0-97.0 H (test code = 386) HCO3 ARTERIAL (BEAKER) (test code 21 mmol/L 21-29 = 388) BASE EXCESS ARTERIAL (BEAKER) -2.5 mmol/L -2.0-3.0 L (test code = 387) PATIENT TEMPERATURE (BEAKER) 37.7 (test code = 1818) FIO2 (BEAKER) (test code = 1819) 60.0 [id number] 02:24:21 Test Item Value Reference Range Interpretation Comments PROTIME (BEAKER) (test 14.9 seconds 11.9-14.2 H code = 759) INR (BEAKER) (test 1.19 See_Comment [Automat ed code = 370) message] The sy stem which generated this result transmitted reference range : <=5.90. The reference range was not used to interpret this result as normal/abnormal . PARTIAL THROMBOPLASTIN 35.4 seconds 22.5-36.0 TIME (BEAKER) (test code = 760) RECOMMENDED COUMADIN/WARFARIN INR THERAPY RANGESSTANDARD DOSE: 2.0 - 3.0 Includes: PROPHYLAXIS for venous thrombosis, systemic embolization; TREATMENT for venous thrombosis and/or pulmonary embolus.HIGH RISK: Target INR is 2.5-3.5 for patients with mechanical heart valves.[id number] 02:24:20 Test Item Value Reference Range Interpretation Comments PARTIAL THROMBOPLASTIN TIME 35.4 seconds 22.5-36.0 (BEAKER) (test code = 760) VANCOMYCIN LEVEL, [id number] 01:16:27 Test Item Value Reference Range Interpretation Comments VANCOMYCIN TROUGH (BEAKER) (test 22.9 ug/mL 10.0-20.0 H code = 522) Sustainability Specialist ID - [id number] 00:31:42 Test Item Value Reference Range Interpretation Comments PARTIAL THROMBOPLASTIN TIME 77.5 seconds 22.5-36.0 H (BEAKER) (test code = 760) POCT-GLUCOSE [id number] 00:31:05 Test Item Value Reference Range Interpretation Comments POC-GLUCOSE METER 178 mg/dL 70-110 H : TESTED A T [facility] 6720 (GVISP 1) (test code = [facility] [place] [facility], 1538) [id number]: Sustainability Specialist/Techni salma ID = [id number] for Se ramirez (contract)Vandana [id number] 21:35:51 Test Item Value Reference Range Interpretation Comments PARTIAL THROMBOPLASTIN TIME 140.6 seconds 22.5-36.0 H (BEAKER) (test code = 760) POCT-GLUCOSE [id number] 18:02:05 Test Item Value Reference Range Interpretation Comments POC-GLUCOSE METER 158 mg/dL 70-110 H : TESTED A T [facility] 6720 (GVISP 1) (test code = [facility] [place] [facility], 1538) [address]: Sustainability Specialist/Techni salma ID = [id number] for LO ILDA, RODRIGUEZ BASIC METABOLIC [id number] 17:52:37 Test Item Value Reference Range Interpretation Comments SODIUM (BEAKER) 152 meq/L 136-145 H (test code = 381) POTASSIUM (BEAKER) 4.6 meq/L 3.5-5.1 (test code = 379) CHLORIDE (BEAKER) 125 meq/L 98-107 H (test code = 382) CO2 (BEAKER) (test 20 meq/L 22-29 L code = 355) BLOOD UREA NITROGEN 59 mg/dL 7-21 H (BEAKER) (test code = 354) CREATININE (BEAKER) 2.21 mg/dL 0.57-1.25 H (test code = 358) GLUCOSE RANDOM 179 mg/dL 70-105 H (BEAKER) (test code = 652) CALCIUM (BEAKER) 8.6 mg/dL 8.4-10.2 (test code = 697) EGFR (BEAKER) (test 29 mL/min/1.73 ESTIMA OZIEL GFR IS code = 1092) sq m NOT ACCURATE CREATININE CLEARANCE IN PREDICTING GLOMERULAR FILTRATION RATE . ESTIMATED GFR I S NOT APPLICABLE FOR DIALYSIS PATIEN TS. Sustainability Specialist ID - DBBLOOD GAS, [id number] 17:18:29 Test Item Value Reference Range Interpretation Comments PH ARTERIAL (BEAKER) (test code = 7.40 7.35-7.45 383) PCO2 ARTERIAL (BEAKER) (test code 33 mm Hg 35-45 L = 384) PO2 ARTERIAL (BEAKER) (test code 127 mm Hg 80-90 H = 385) O2 SATURATION ARTERIAL (BEAKER) 98.6 % 96.0-97.0 H (test code = 386) HCO3 ARTERIAL (BEAKER) (test code 20 mmol/L 21-29 L = 388) BASE EXCESS ARTERIAL (BEAKER) -4.2 mmol/L -2.0-3.0 L (test code = 387) PATIENT TEMPERATURE (BEAKER) 37.0 (test code = 1818) FIO2 (BEAKER) (test code = 1819) 50.0 2D Echo W/Doppler(CW/PW/Color)2021-06-24 17:08:23Ejection FractionSLEH ECHO HEARTLAB MKCKESSON [facility]2022-[facility]-19 15:24:04 Test Item Value Reference Range Interpretation Comments CORTISOL, TOTAL (BEAKER) (test 22.3 ug/dL 3.7-19.4 H code = 2755) Sustainability Specialist ID - [id number] 15:09:23 Test Item Value Reference Range Interpretation Comments PARTIAL THROMBOPLASTIN TIME 92.9 seconds 22.5-36.0 H (BEAKER) (test code = 760) SPUTUM CULTURE + GRAM [id number] 15:01:52 Test Item Value Reference Interpretation Comments Range CULTURE (BEAKER) METHICILLIN A 4+ Methicil antionette (test code = 1095) RESISTANT resistant STAPHYLOCOCCUS Staphylococcu s AUREUS aureus Clindamycin (test R code = 10) Erythromycin (test R code = 4) Linezolid (test code S = 40) Nitrofurantoin (test S code = 23) Oxacillin (test code R = 14) Rifampin (test code = S 43) Tetracycline (test R code = 2) Trimethoprim + S Sulfamethoxazole (test code = 47) Vancomycin (test code S = 13) CULTURE (BEAKER) A 4+ Bordetel la (test code = 1095) bronchise ptica GRAM STAIN RESULT 3+ White blood (BEAKER) (test code = cells seen 1123) GRAM STAIN RESULT >25 epithelial (BEAKER) (test code = cells 176185) GRAM STAIN RESULT 1+ gram positive (BEAKER) (test code = rods 926750) GRAM STAIN RESULT 3+ gram positive (BEAKER) (test code = cocci in pairs and 455775) clusters GRAM STAIN RESULT 1+ gram positive (BEAKER) (test code = cocci in chains 257090) GRAM STAIN RESULT 1+ yeast (BEAKER) (test code = 449849) 3+ Normal respiratory ignacia presentLACTIC ACID, [id number] 14:58:59 Test Item Value Reference Range Interpretation Comments LACTATE BLOOD 0.7 mmol/L 0.5-2.2 Specimen sligh tly ARTERIAL (2) (BEAKER) hemoly zed (test code = 2874) Sustainability Specialist ID - DBRAD, ABDOMEN/KUB, 1 VIEW [id number] 14:09:00Reason for exam:- >og tube placement [facility] 1950 Sex: MFINAL REPORT TECHNIQUE: Single View of the Abdomen. INDICATION: og tube placement. COMPARISON: Abdominal radiograph from 06/24/2021. FINDINGS/IMPRESSION: Interval removal of the feeding tube with interval placement of an OG tube. Given the projection of the tubing, it is difficult to tell if the tip is over the third portion of the duodenum or is looped over the duodenum with the tip over the gastric body. The tip being over the gastric body is favored. A partially calcified left renal lesion is unchanged. There are prominent loops of large bowel in a nonspecific pattern, most concerning for an adynamic ileus. Left retrocardiac atelectasis. No acute bone abnormality. Signed: Fly Bean MDReport Verified Date/Time: 06/24/2021 14:09:48 Reading Location: [facility] C013Y CT Body Reading Room POCT-GLUCOSE [id number] 12:07:23 Test Item Value Reference Range Interpretation Comments POC-GLUCOSE METER 172 mg/dL 70-110 H : TESTED A T [facility] 6720 (BEAKER) (test code = [facility], 1538) [address]: Sustainability Specialist/Techni salma ID = [id number] for RODRIGUEZ REILLY BLOOD GAS, [id number] 11:15:51 Test Item Value Reference Range Interpretation Comments PH ARTERIAL (BEAKER) (test code = 7.33 7.35-7.45 L 383) PCO2 ARTERIAL (BEAKER) (test code 38 mm Hg 35-45 = 384) PO2 ARTERIAL (BEAKER) (test code 113 mm Hg 80-90 H = 385) O2 SATURATION ARTERIAL (BEAKER) 97.8 % 96.0-97.0 H (test code = 386) HCO3 ARTERIAL (BEAKER) (test code 20 mmol/L 21-29 L = 388) BASE EXCESS ARTERIAL (BEAKER) -5.6 mmol/L -2.0-3.0 L (test code = 387) PATIENT TEMPERATURE (BEAKER) 37.5 (test code = 1818) FIO2 (BEAKER) (test code = 1819) 80.0 RAD, ABDOMEN/KUB, 1 VIEW [id number] 11:02:00Reason for exam:->feeding [facility]CON[facility] : 1950 Sex: MFINAL REPORT EXAMINATION: RAD, ABDOMEN/KUB, 1 VIEW AP. INDICATION: 70-year-old male status post feeding tube placement. COMPARISON: Abdominal radiograph dated 06/24/2021 at 10:[address] abdomen and pelvis dated 06/18/2021. FINDINGS:An enteric tube is noted terminating in the gastric body. Several loops of prominent large bowel are noted. A calcified left renal cyst is noted. IMPRESSION:An enteric tube is noted terminating in the gastric body. Signed: Clayton Vargas MDReport Verified Date/Time: 06/24/2021 11:02:46 Reading Location: [facility] [address] [place] [address] Consult Reading Room RAD, ABDOMEN/KUB, 1 VIEW [id number] 10:54:00 Reason for exam:->feeding tube placement [facility] : 1950 Sex: MFINAL REPORT TECHNIQUE: Single View of the Abdomen. INDICATION: feeding tube placement. COMPARISON: KUB from 06/17/2021. CT from 06/18/2021 FINDINGS/IMPRESSION: A feeding tube has itstip over the gastric fundus. There are prominent loops of small and large bowel in a pattern which is concerning for an 8 on image ileus. The partially calcified left renal lesion is similar to prior examinations. A radiopaque structure over the right lower quadrant is nonspecific but could be ingested material. No acute bone abnormality. Please refer to the recent chest radiograph regarding intrathoracic findings. Signed: Fly Bean MDRepgerardo Verified Date/Time: 06/24/2021 10:54:19 Reading Location:[address] Body Reading Room PT/[id number] 09:21:09 Test Item Value Reference Range Interpretation Comments PROTIME (BEAKER) (test 18.9 seconds 11.9-14.2 H code = 759) INR (BEAKER) (test 1.61 See_Comment [Automat ed code = 370) message] The sy stem which generated this result transmitted reference range : <=5.90. The reference range was not used to interpret this result as normal/abnormal . PARTIAL THROMBOPLASTIN 64.4 seconds 22.5-36.0 H TIME (BESTU) (test code = 760) RECOMMENDED COUMADIN/WARFARIN INR THERAPY RANGESSTANDARD DOSE: 2.0 - 3.0 Includes: PROPHYLAXIS for venous thrombosis, systemic embolization; TREATMENT for venous thrombosis and/or pulmonary embolus.HIGH RISK: Target INR is 2.5-3.5 for patients with mechanical heart valves.BLOOD GAS, [id number] 08:53:13 Test Item Value Reference Range Interpretation Comments PH ARTERIAL (BEAKER) (test code = 7.17 7.35-7.45 LL 383) PCO2 ARTERIAL (BEAKER) (test code 59 mm Hg 35-45 H = 384) PO2 ARTERIAL (BEAKER) (test code 116 mm Hg 80-90 H = 385) O2 SATURATION ARTERIAL (BEAKER) 96.4 % 96.0-97.0 (test code = 386) HCO3 ARTERIAL (BEAKER) (test code 21 mmol/L 21-29 = 388) BASE EXCESS ARTERIAL (BEAKER) -7.3 mmol/L -2.0-3.0 L (test code = 387) PATIENT TEMPERATURE (BEAKER) 39.0 (test code = 1818) FIO2 (BEAKER) (test code = 1819) 90.0 RAD, CHEST, 1 VIEW, NON [id number] 07:43:00Reason for exam:- >hypoxiaShould this be performed at the bedside?->Yes [facility] 1950 Sex: MFINAL REPORT RAD, CHEST, 1 VIEW, NON DEPT INDICATION: hypoxia COMPARISON: Prior day's exam FINDINGS: Portable frontal view of the chest. IMPRESSION: Support Lines: ET tube tip is 4 cm superior to the alexia. Feeding tube descends below the diaphragm. Lungs and pleura: Mild bibasilaratelectasis. No significant pneumothorax. Heart and mediastinum: Stable contours. Stable surgical changes. Additional findings: None. Signed: Luke Parikheport Verified Date/Time: 06/24/2021 07:43:09 BASIC METABOLIC [id number] 06:17:56 Test Item Value Reference Range Interpretation Comments SODIUM (BEAKER) 152 meq/L 136-145 H (test code = 381) POTASSIUM (BEAKER) 5.1 meq/L 3.5-5.1 (test code = 379) CHLORIDE (BEAKER) 122 meq/L 98-107 H (test code = 382) CO2 (BEAKER) (test 22 meq/L 22-29 code = 355) BLOOD UREA NITROGEN 53 mg/dL 7-21 H (BEAKER) (test code = 354) CREATININE (BEAKER) 2.09 mg/dL 0.57-1.25 H (test code = 358) GLUCOSE RANDOM 265 mg/dL 70-105 H (BEAKER) (test code = 652) CALCIUM (BEAKER) 8.8 mg/dL 8.4-10.2 (test code = 697) EGFR (BEAKER) (test 31 mL/min/1.73 ESTIMA OZIEL GFR IS code = 1092) sq m NOT ACCURATE CREATININE CLEARANCE IN PREDICTING GLOMERULAR FILTRATION RATE . ESTIMATED GFR I S NOT APPLICABLE FOR DIALYSIS PATIEN TS. Sustainability Specialist ID - JAKE MHEPATIC FUNCTION [id number] 06:13:50 Test Item Value Reference Range Interpretation Comments TOTAL PROTEIN (BEAKER) (test code = 5.7 gm/dL 6.0-8.3 L 770) ALBUMIN (BEAKER) (test code = 1145) 2.7 g/dL 3.5-5.0 L BILIRUBIN TOTAL (BEAKER) (test code 0.3 mg/dL 0.2-1.2 = 377) BILIRUBIN DIRECT (BEAKER) (test 0.2 mg/dL 0.1-0.5 code = 706) ALKALINE PHOSPHATASE (BEAKER) (test 72 U/L 40-150 code = 346) AST (SGOT) (BEAKER) (test code = 38 U/L 5-34 H 353) ALT (SGPT) (BEAKER) (test code = 42 U/L 6-55 347) Sustainability Specialist ID - JAKE MLACTATE DEHYDROGENASE (LDH)[id number] 06:13:50 Test Item Value Reference Range Interpretation Comments LACTATE DEHYDROGENASE (BEAKER) (test 453 U/L 125-220 H code = 635) Sustainability Specialist ID - JAKE [id number] 06:13:49 Test Item Value Reference Range Interpretation Comments PHOSPHORUS (BEAKER) (test code = 5.6 mg/dL 2.3-4.7 H 604) Sustainability Specialist ID - JAKE [id number] 06:13:48 Test Item Value Reference Range Interpretation Comments MAGNESIUM (BEAKER) (test code = 2.5 mg/dL 1.6-2.6 627) Sustainability Specialist ID - JAKE MPOCT-GLUCOSE [id number] 05:39:12 Test Item Value Reference Range Interpretation Comments POC-GLUCOSE METER 208 mg/dL 70-110 H : TESTED A T [facility] 6720 (BEAKER) (test code = BREEZY Moss [place], 1538) [address]: Sustainability Specialist/Techni salma ID = [id number] for Pola rios (contract)Bar RAD, CHEST, 1 VIEW, NON [id number] 05:28:00Reason for exam:- >currentShould this be performed at the bedside?->Yes [facility] : 1950 Sex: MFINAL REPORT RAD, CHEST, 1 VIEW, NON DEPT INDICATION: current COMPARISON: June 20, 2021 FINDINGS: Portable frontal view of the chest. IMPRESSION: Support Lines: Enteric tube tipoverlies the mid esophagus for which advancement into the stomach is advised.Lungs and pleura: Scattered interstitial opacities, likely edema or pneumonitis, similar in appearance. No large effusion. No pneumothorax.Heart and mediastinum: Stable contours. Additional findings: None. Signed: Maximilian Ulloa MDReport Verified Date/Time: 06/24/2021 05:28:23 CBC W/PLT COUNT & AUTO [id number] 05:25:13 Test Item Value Reference Range Interpretation Comments WHITE BLOOD CELL COUNT 16.2 K/ L 3.5-10.5 H (BEAKER) (test code = 775) RED BLOOD CELL COUNT 3.69 M/ L 4.63-6.08 L (BEAKER) (test code = 761) HEMOGLOBIN (BEAKER) 10.2 GM/DL 13.7-17.5 L (test code = 410) HEMATOCRIT (BEAKER) 35.5 % 40.1-51.0 L (test code = 411) MEAN CORPUSCULAR 96.2 fL 79.0-92.2 H Discordant result VOLUME (BEAKER) (test compar ed to previous code = 753) result. Clinica l correlation req uired MEAN CORPUSCULAR 27.6 pg 25.7-32.2 HEMOGLOBIN (BEAKER) (test code = 751) MEAN CORPUSCULAR 28.7 GM/DL 32.3-36.5 L HEMOGLOBIN CONC (BEAKER) (test code = 752) RED CELL DISTRIBUTION 17.7 % 11.6-14.4 H WIDTH (BEAKER) (test code = 412) PLATELET COUNT 299 K/CU MM 150-450 (BEAKER) (test code = 756) MEAN PLATELET VOLUME 10.8 fL 9.4-12.4 (BEAKER) (test code = 754) NUCLEATED RED BLOOD 0 /100 WBC 0-0 CELLS (BEAKER) (test code = 413) NEUTROPHILS RELATIVE 86 % PERCENT (BEAKER) (test code = 429) LYMPHOCYTES RELATIVE 8 % PERCENT (BEAKER) (test code = 430) MONOCYTES RELATIVE 5 % PERCENT (BEAKER) (test code = 431) EOSINOPHILS RELATIVE 0 % PERCENT (BEAKER) (test code = 432) BASOPHILS RELATIVE 0 % PERCENT (BEAKER) (test code = 437) NEUTROPHILS ABSOLUTE 13.94 K/ L 1.78-5.38 H COUNT (BEAKER) (test code = 670) LYMPHOCYTES ABSOLUTE 1.22 K/ L 1.32-3.57 L COUNT (BEAKER) (test code = 414) MONOCYTES ABSOLUTE 0.82 K/ L 0.30-0.82 COUNT (BEAKER) (test code = 415) EOSINOPHILS ABSOLUTE 0.03 K/ L 0.04-0.54 L COUNT (BEAKER) (test code = 416) BASOPHILS ABSOLUTE 0.02 K/ L 0.01-0.08 COUNT (BEAKER) (test code = 417) IMMATURE 1 % 0-1 GRANULOCYTES-RELATIVE PERCENT (BEAKER) (test code = 2801) BLOOD GAS, [id number] 05:18:59 Test Item Value Reference Range Interpretation Comments PH ARTERIAL (BEAKER) (test code = 7.15 7.35-7.45 LL 383) PCO2 ARTERIAL (BEAKER) (test code 66 mm Hg 35-45 H = 384) PO2 ARTERIAL (BEAKER) (test code 87 mm Hg 80-90 = 385) O2 SATURATION ARTERIAL (BEAKER) 93.4 % 96.0-97.0 L (test code = 386) HCO3 ARTERIAL (BEAKER) (test code 23 mmol/L 21-29 = 388) BASE EXCESS ARTERIAL (BEAKER) -6.9 mmol/L -2.0-3.0 L (test code = 387) PATIENT TEMPERATURE (BEAKER) 37.0 (test code = 1818) FIO2 (BEAKER) (test code = 1819) 50.0 VANCOMYCIN LEVEL, [id number] 03:22:40 Test Item Value Reference Range Interpretation Comments VANCOMYCIN TROUGH (BEAKER) (test 18.0 ug/mL 10.0-20.0 code = 522) Sustainability Specialist ID - JAKE MPOCT-GLUCOSE [id number] 23:43:05 Test Item Value Reference Range Interpretation Comments POC-GLUCOSE METER 167 mg/dL 70-110 H : TESTED A T [facility] 6720 (BEAKER) (test code = [facility], 1538) [address]: Sustainability Specialist/Techni salma ID = [id number] for Pola rios (contract)Bar POCT-GLUCOSE [id number] 20:47:23 Test Item Value Reference Range Interpretation Comments POC-GLUCOSE METER 128 mg/dL 70-110 H : TESTED A T [facility] 6720 (BEAKER) (test code = [facility], 1538) [address]: Sustainability Specialist/Techni salma ID = [id number] for Kuldeep luna (contract)Sondra CSF cell count with [id number] 19:04:55 Test Item Value Reference Range Interpretation Comments Appearance (test code = Clear Clear 77999-6) Color (test code = Colorless Colorless 73926-4) RBCs (test code = 13 See_Comment H [Automate d message] 792-2) The system Mobi generated this result transmit oziel reference range : 0 - 5 /cu mm. The reference range was not used to interpret this result as normal/abnormal . WBCs (test code = 1 See_Comment [Automate d message] 806-0) The system Mobi generated this result transmit oziel reference range : <=5 /cu mm. The reference range was not used to interpret this result as normal/abnormal . RBCs Fresh? (test code 100% Fresh = 69860-8) # of Cells Diff'd (test 70 code = 56411-1) % Neutros (test code = 9 % 0-5 H 07166-4) % Lymphs (test code = 51 % 40-80 26607-6) % Monos (test code = 40 % 15-45 439) % Eos (test code = 360) 0 % See_Comment [Au tomated message] The system Mobi generated this result transmit oziel reference range : <=0. The refere nce range was not u sed to interpret th is result as normal/abnormal . % Baso (test code = 0 % See_Comment [Automa oziel message] 440) The system Mobi generated this result transmit oziel reference range : <=0. The refere nce range was not u sed to interpret th is result as normal/abnormal . Tube Number (test code 1 = 2677) Lab Interpretation Abnormal (test code = 76460-7) [facility] W/[id number] 19:04:55 Test Item Value Reference Range Interpretation Comments APPEARANCE CSF Clear Clear (BEAKER) (test code = 407) COLOR CSF (BEAKER) Colorless Colorless (test code = 408) RBC CSF (BEAKER) (test 13 /cu mm 0-5 H code = 409) WBC CSF (BEAKER) (test 1 /cu mm See_Comment [Aut omated message] code = 1020) The system whic h generated this result transmitted ref erence range: <=5. The reference range was not used to int erpret this result as normal/abnormal . RBCS FRESH (BEAKER) 100% Fresh (test code = 1444) NUMBER OF CELLS DIFF'D 70 (BEAKER) (test code = 1591) NEUTROPHIL, CSF 9 % 0-5 H (BEAKER) (test code = 324) LYMPHS CSF (BEAKER) 51 % 40-80 (test code = 438) MONO/MACROPHAGE CSF 40 % 15-45 (BEAKER) (test code = 439) EOSINOPHILS CSF 0 % See_Comment [Automated message] (BEAKER) (test code = The sy stem which 360) generated this result transmitted ref erence range: <=0. The reference range was not used to int erpret this result as normal/abnormal . BASO CSF (BEAKER) 0 % See_Comment [Automate d message] (test code = 440) The system which generated this result transmitted ref erence range: <=0. The reference range was not used to int erpret this result as normal/abnormal . TUBE NUMBER CSF 1 (BEAKER) (test code = 2678) HIV-1 Antigen with HIV-1/2 [id number] 18:58:32 Test Item Value Reference Range Interpretation Comments HIV-1 Antigen with HIV 1&2 Nonreactive Nonreactive Antibody (test code = 56086-9) BANDAR (test code = BANDAR) Sustainability Specialist ID - DB Lab Interpretation (test Normal code = 51623-3) [facility] ANTIGEN WITH HIV-1/2 [id number] 18:58:32 Test Item Value Reference Range Interpretation Comments HIV-1 ANTIGEN WITH HIV 1\\T\\2 Nonreactive Nonreactive ANTIBODY (2) (BEAKER) (test code = 2586) Sustainability Specialist ID - DBPOCT-GLUCOSE [id number] 18:23:04 Test Item Value Reference Range Interpretation Comments POC-GLUCOSE METER 152 mg/dL 70-110 H : TESTED A T [facility] 6720 (BEAKER) (test code = [place], 1538) [address]: Sustainability Specialist/Techni salma ID = [id number] for LL JUAN JOSE FARRELL BASIC METABOLIC [id number] 18:09:49 Test Item Value Reference Range Interpretation Comments SODIUM (BEAKER) 152 meq/L 136-145 H (test code = 381) POTASSIUM (BEAKER) 3.4 meq/L 3.5-5.1 L (test code = 379) CHLORIDE (BEAKER) 123 meq/L 98-107 H (test code = 382) CO2 (BEAKER) (test 24 meq/L 22-29 code = 355) BLOOD UREA NITROGEN 51 mg/dL 7-21 H (BEAKER) (test code = 354) CREATININE (BEAKER) 1.86 mg/dL 0.57-1.25 H (test code = 358) GLUCOSE RANDOM 160 mg/dL 70-105 H (BEAKER) (test code = 652) CALCIUM (BEAKER) 8.6 mg/dL 8.4-10.2 (test code = 697) EGFR (BEAKER) (test 36 mL/min/1.73 ESTIMA OZIEL GFR IS code = 1092) sq m NOT ACCURATE CREATININE CLEARANCE IN PREDICTING GLOMERULAR FILTRATION RATE . ESTIMATED GFR I S NOT APPLICABLE FOR DIALYSIS PATIEN TS. Sustainability Specialist ID - BS.DLACDBJEJ4589-35-47 18:09:31 Test Item Value Reference Range Interpretation Comments MAGNESIUM (BEAKER) (test code = 2.2 mg/dL 1.6-2.6 627) Sustainability Specialist ID - BS.Protein, [id number] 18:07:04 Test Item Value Reference Range Interpretation Comments Protein, CSF (test code = 17 mg/dL 15-45 2880-3) BANDAR (test code = BANDAR) Sustainability Specialist ID - DB Lab Interpretation (test Normal code = 98971-6) [facility]OTE[facility], [id number] 18:07:04 Test Item Value Reference Range Interpretation Comments PROTEIN CSF (BEAKER) (test code = 17 mg/dL 15-45 378) Sustainability Specialist ID - DBGlucose, [id number] 18:07:03 Test Item Value Reference Range Interpretation Comments Glucose, CSF (test code = 162 mg/dL 40-70 H 2342-4) BANDAR (test code = BANDAR) Sustainability Specialist ID - DB Lab Interpretation (test Abnormal code = 46546-4) [facility], [id number] 18:07:03 Test Item Value Reference Range Interpretation Comments GLUCOSE CSF (BEAKER) (test code = 162 mg/dL 40-70 H 406) Sustainability Specialist ID - DBPT/GTVM4890-74-50 14:44:05 Test Item Value Reference Range Interpretation Comments PROTIME (GALE) (test 14.6 seconds 11.9-14.2 H code = 759) INR (BEAKER) (test 1.16 See_Comment [Automat ed code = 370) message] The sy stem which generated this result transmitted reference range : <=5.90. The reference range was not used to interpret this result as normal/abnormal . PARTIAL THROMBOPLASTIN 27.9 seconds 22.5-36.0 TIME (GALE) (test code = 760) RECOMMENDED COUMADIN/WARFARIN INR THERAPY RANGESSTANDARD DOSE: 2.0 - 3.0 Includes: PROPHYLAXIS for venous thrombosis, systemic embolization; TREATMENT for venous thrombosis and/or pulmonary embolus.HIGH RISK: Target INR is 2.5-3.5 for patients with mechanical heart valves.PROTHROMBIN TIME/[id number] 14:43:28 Test Item Value Reference Range Interpretation Comments PROTIME (SPAKER) 14.6 seconds 11.9-14.2 H (test code = 759) INR (BEAKER) (test 1.16 See_Comment [Automat ed message] code = 370) The system [employer] h generated this result transmitted ref erence range: <=5.90. The reference range was not used to int erpret this result as normal/abnormal . RECOMMENDED COUMADIN/WARFARIN INR THERAPY RANGESSTANDARD DOSE: 2.0 - 3.0 Includes: PROPHYLAXIS for venous thrombosis, systemic embolization; TREATMENT for venous thrombosis and/or pulmonary embolus.HIGH RISK: Target INR is 2.5-3.5 for patients with mechanical heart valves.POCT-GLUCOSE [id number] 12:13:25 Test Item Value Reference Range Interpretation Comments POC-GLUCOSE METER 331 mg/dL 70-110 H : Notified RN/MD: (GALE) (test code = TESTED AT [facility] 1961 7586) [facility], [address]: Sustainability Specialist/Techni salma ID = [id number] for JUAN JOSE WHITAKER LACTATE DEHYDROGENASE (LDH)2021-06-23 11:04:38 Test Item Value Reference Range Interpretation Comments LACTATE DEHYDROGENASE 532 U/L 125-220 H Specim en slightly (GALE) (test code = hemoly zed 635) Sustainability Specialist ID - [id number] 11:03:51 Test Item Value Reference Range Interpretation Comments PARTIAL THROMBOPLASTIN TIME 45.8 seconds 22.5-36.0 H (BEAKER) (test code = 760) HEPATIC FUNCTION [id number] 11:00:15 Test Item Value Reference Range Interpretation Comments TOTAL PROTEIN (BEAKER) 5.6 gm/dL 6.0-8.3 L Speci men slightly (test code = 770) hemolyzed ALBUMIN (BEAKER) (test 2.6 g/dL 3.5-5.0 L Speci men slightly code = 1145) hemolyzed BILIRUBIN TOTAL 0.4 mg/dL 0.2-1.2 Specimen sli ghtly (BEAKER) (test code = hemoly zed 377) BILIRUBIN DIRECT 0.2 mg/dL 0.1-0.5 Specimen sl ightly (BEAKER) (test code = hemoly zed 706) ALKALINE PHOSPHATASE 81 U/L 40-150 (BEAKER) (test code = 346) AST (SGOT) (BEAKER) 31 U/L 5-34 Specimen slightly (test code = 353) hemolyzed ALT (SGPT) (BEAKER) 33 U/L 6-55 Specimen slightly (test code = 347) hemolyzed Sustainability Specialist ID - [id number] 11:00:13 Test Item Value Reference Range Interpretation Comments PHOSPHORUS (BEAKER) 3.9 mg/dL 2.3-4.7 Specimen slightly (test code = 604) hemolyzed Sustainability Specialist ID - DBBASIC METABOLIC [id number] 11:00:13 Test Item Value Reference Range Interpretation Comments SODIUM (BEAKER) 146 meq/L 136-145 H (test code = 381) POTASSIUM (BEAKER) 4.2 meq/L 3.5-5.1 Specimen slightly (test code = 379) hemolyzed CHLORIDE (BEAKER) 117 meq/L 98-107 H (test code = 382) CO2 (BEAKER) (test 18 meq/L 22-29 L code = 355) BLOOD UREA NITROGEN 54 mg/dL 7-21 H (BEAKER) (test code = 354) CREATININE (BEAKER) 2.09 mg/dL 0.57-1.25 H Specimen slightly (test code = 358) hemolyzed GLUCOSE RANDOM 291 mg/dL 70-105 H (BEAKER) (test code = 652) CALCIUM (BEAKER) 8.7 mg/dL 8.4-10.2 (test code = 697) EGFR (BEAKER) (test 31 mL/min/1.73 ESTIMA OZIEL GFR IS code = 1092) sq m NOT ACCURATE CREATININE CLEARANCE IN PREDICTING GLOMERULAR FILTRATION RATE . ESTIMATED GFR I S NOT APPLICABLE FOR DIALYSIS PATIEN TS. Sustainability Specialist ID - [id number] 11:00:12 Test Item Value Reference Range Interpretation Comments MAGNESIUM (BEAKER) 2.4 mg/dL 1.6-2.6 Specimen slightly (test code = 627) hemolyzed Sustainability Specialist ID - DBCBC W/PLT COUNT & AUTO [id number] 10:36:54 Test Item Value Reference Range Interpretation Comments WHITE BLOOD CELL COUNT (BEAKER) 17.8 K/ L 3.5-10.5 H (test code = 775) RED BLOOD CELL COUNT (BEAKER) 3.46 M/ L 4.63-6.08 L (test code = 761) HEMOGLOBIN (BEAKER) (test code = 9.6 GM/DL 13.7-17.5 L 410) HEMATOCRIT (BEAKER) (test code = 31.3 % 40.1-51.0 L 411) MEAN CORPUSCULAR VOLUME (BEAKER) 90.5 fL 79.0-92.2 (test code = 753) MEAN CORPUSCULAR HEMOGLOBIN 27.7 pg 25.7-32.2 (BEAKER) (test code = 751) MEAN CORPUSCULAR HEMOGLOBIN CONC 30.7 GM/DL 32.3-36.5 L (BEAKER) (test code = 752) RED CELL DISTRIBUTION WIDTH 17.5 % 11.6-14.4 H (BEAKER) (test code = 412) PLATELET COUNT (BEAKER) (test 282 K/CU MM 150-450 code = 756) MEAN PLATELET VOLUME (BEAKER) 11.8 fL 9.4-12.4 (test code = 754) NUCLEATED RED BLOOD CELLS 0 /100 WBC 0-0 (BEAKER) (test code = 413) NEUTROPHILS RELATIVE PERCENT 86 % (BEAKER) (test code = 429) LYMPHOCYTES RELATIVE PERCENT 7 % (BEAKER) (test code = 430) MONOCYTES RELATIVE PERCENT 6 % (BEAKER) (test code = 431) EOSINOPHILS RELATIVE PERCENT 0 % (BEAKER) (test code = 432) BASOPHILS RELATIVE PERCENT 0 % (BEAKER) (test code = 437) NEUTROPHILS ABSOLUTE COUNT 15.30 K/ L 1.78-5.38 H (BEAKER) (test code = 670) LYMPHOCYTES ABSOLUTE COUNT 1.16 K/ L 1.32-3.57 L (BEAKER) (test code = 414) MONOCYTES ABSOLUTE COUNT (BEAKER) 1.02 K/ L 0.30-0.82 H (test code = 415) EOSINOPHILS ABSOLUTE COUNT 0.02 K/ L 0.04-0.54 L (BEAKER) (test code = 416) BASOPHILS ABSOLUTE COUNT (BEAKER) 0.02 K/ L 0.01-0.08 (test code = 417) IMMATURE GRANULOCYTES-RELATIVE 2 % 0-1 H PERCENT (BEAKER) (test code = 2801) POCT-GLUCOSE [id number] 09:44:46 Test Item Value Reference Range Interpretation Comments POC-GLUCOSE METER 298 mg/dL 70-110 H : TESTED A T [facility] 6720 (BEAKER) (test code = [facility], 1538) [address]: Sustainability Specialist/Techni salma ID = [id number] for Cee chery (contract)Suzanne Urine [id number] 08:51:25 Test Item Value Reference Range Interpretation Comments Result (test code = 6463-4) No growth BANDAR (test code = BANDAR) [facility] [id number] 08:01:05 Test Item Value Reference Range Interpretation Comments CULTURE (BEAKER) (test No growth in 5 days code = 1095) The specimen volume collected for this blood culture was below the optimum (10 mL per bottle or 20 mL total). Use of lower volumes may adversely affect recovery and/or detection times of some organisms.POCT-GLUCOSE [id number] 05:38:04 Test Item Value Reference Range Interpretation Comments POC-GLUCOSE METER 270 mg/dL 70-110 H : TESTED A T [facility] 6720 (BEAKER) (test code = [facility], 1538) [address]: Sustainability Specialist/Techni salma ID = [id number] for Sa isabel (contract), Yancy miguel [id number] 03:25:04 Test Item Value Reference Range Interpretation Comments PARTIAL THROMBOPLASTIN TIME 65.8 seconds 22.5-36.0 H (BEAKER) (test code = 760) [id number] 02:13:51 Test Item Value Reference Range Interpretation Comments PARTIAL THROMBOPLASTIN TIME 158.4 seconds 22.5-36.0 HH (BEAKER) (test code = 760) POCT-GLUCOSE [id number] 23:25:31 Test Item Value Reference Range Interpretation Comments POC-GLUCOSE METER 343 mg/dL 70-110 H : TESTED A T [facility] 6720 (BEAKER) (test code = [place], 1538) [address]: Sustainability Specialist/Techni salma ID = [id number] for Floyd ty (contract), Byr on BASIC METABOLIC [id number] 17:18:25 Test Item Value Reference Range Interpretation Comments SODIUM (BEAKER) 146 meq/L 136-145 H (test code = 381) POTASSIUM (BEAKER) 4.9 meq/L 3.5-5.1 Specimen markedly (test code = 379) hemolyzed CHLORIDE (BEAKER) 119 meq/L 98-107 H (test code = 382) CO2 (BEAKER) (test 16 meq/L 22-29 L code = 355) BLOOD UREA NITROGEN 50 mg/dL 7-21 H (BEAKER) (test code = 354) CREATININE (BEAKER) 1.77 mg/dL 0.57-1.25 H Specimen markedly (test code = 358) hemolyzed GLUCOSE RANDOM 241 mg/dL 70-105 H (BEAKER) (test code = 652) CALCIUM (BEAKER) 8.6 mg/dL 8.4-10.2 (test code = 697) EGFR (BEAKER) (test 38 mL/min/1.73 ESTIMA OZIEL GFR IS code = 1092) sq m NOT ACCURATE CREATININE CLEARANCE IN PREDICTING GLOMERULAR FILTRATION RATE . ESTIMATED GFR I S NOT APPLICABLE FOR DIALYSIS PATIEN TS. Sustainability Specialist ID - [id number] 17:18:24 Test Item Value Reference Range Interpretation Comments MAGNESIUM (BEAKER) 2.1 mg/dL 1.6-2.6 Specimen markedly (test code = 627) hemolyzed Sustainability Specialist ID - DBGlucose, [id number] 17:18:23 Test Item Value Reference Range Interpretation Comments Glucose (test code = 2345-7) 241 mg/dL 70-105 H Lab Interpretation (test code = Abnormal 86062-0) [facility] 17:18:23 Test Item Value Reference Range Interpretation Comments GLUCOSE RANDOM (BEAKER) (test code 241 mg/dL 70-105 H = 652) [id number] 16:59:38 Test Item Value Reference Range Interpretation Comments PARTIAL THROMBOPLASTIN TIME 66.5 seconds 22.5-36.0 H (BEAKER) (test code = 760) POCT-GLUCOSE [id number] 16:46:16 Test Item Value Reference Range Interpretation Comments POC-GLUCOSE METER 227 mg/dL 70-110 H : TESTED A T [facility] 6720 (BEAKER) (test code [facility], = 1538) [address]: Sustainability Specialist/Techni salma ID = [id number] for Alyssa ventura (contract), Radha calles BLOOD [id number] 15:00:39 Test Item Value Reference Range Interpretation Comments CULTURE (BEAKER) (test No growth in 5 days code = 1095) POCT-GLUCOSE [id number] 14:31:03 Test Item Value Reference Range Interpretation Comments POC-GLUCOSE METER 95 mg/dL 70-110 : TESTED A T [facility] 6720 (BEAKER) (test code = [facility], 1538) [address]: Sustainability Specialist/Techni salma ID = [id number] for Alyssa ventura (contract), Radha arizabeth POCT-GLUCOSE [id number] 11:45:31 Test Item Value Reference Range Interpretation Comments POC-GLUCOSE METER 100 mg/dL 70-110 : TESTED A T [facility] 6720 (BEAKER) (test code = [facility], 1538) [address]: Sustainability Specialist/Techni salma ID = [id number] for Karel jean (contract), Nos habjake [id number] 10:58:05 Test Item Value Reference Range Interpretation Comments PARTIAL THROMBOPLASTIN TIME 80.3 seconds 22.5-36.0 H (BEAKER) (test code = 760) BASIC METABOLIC [id number] 10:51:17 Test Item Value Reference Range Interpretation Comments SODIUM (BEAKER) 146 meq/L 136-145 H (test code = 381) POTASSIUM (BEAKER) 3.7 meq/L 3.5-5.1 (test code = 379) CHLORIDE (BEAKER) 121 meq/L 98-107 H (test code = 382) CO2 (BEAKER) (test 20 meq/L 22-29 L code = 355) BLOOD UREA NITROGEN 49 mg/dL 7-21 H (BEAKER) (test code = 354) CREATININE (BEAKER) 1.59 mg/dL 0.57-1.25 H (test code = 358) GLUCOSE RANDOM 149 mg/dL 70-105 H (BEAKER) (test code = 652) CALCIUM (BEAKER) 8.4 mg/dL 8.4-10.2 (test code = 697) EGFR (BEAKER) (test 43 mL/min/1.73 ESTIMA OZIEL GFR IS code = 1092) sq m NOT ACCURATE CREATININE CLEARANCE IN PREDICTING GLOMERULAR FILTRATION RATE . ESTIMATED GFR I S NOT APPLICABLE FOR DIALYSIS PATIEN TS. Sustainability Specialist ID - RFDFLCZWY9052-06-27 10:49:23 Test Item Value Reference Range Interpretation Comments GLUCOSE RANDOM (BEAKER) (test code 149 mg/dL 70-105 H = 652) POCT-GLUCOSE [id number] 10:31:41 Test Item Value Reference Range Interpretation Comments POC-GLUCOSE METER 152 mg/dL 70-110 H : TESTED A T [facility] 6720 (BEAKER) (test code [facility], = 1538) [address]: Sustainability Specialist/Techni salma ID = [id number] for Alyssa lorenzo (contract), Radha zabeth POCT-GLUCOSE [id number] 09:12:18 Test Item Value Reference Range Interpretation Comments POC-GLUCOSE METER 167 mg/dL 70-110 H : TESTED A T [facility] 6720 (BEAKER) (test code [facility], = 1538) [address]: Sustainability Specialist/Techni salma ID = [id number] for Alyssa lorenzo (contract), Radha zabeth POCT-GLUCOSE [id number] 08:59:45 Test Item Value Reference Range Interpretation Comments POC-GLUCOSE METER 154 mg/dL 70-110 H : TESTED A T [facility] 6720 (BEAKER) (test code = [facility], 1538) [address]: Sustainability Specialist/Techni salma ID = [id number] for Se ramirez (contract), Vandnaa ice POCT-GLUCOSE [id number] 08:59:39 Test Item Value Reference Range Interpretation Comments POC-GLUCOSE METER 173 mg/dL 70-110 H : TESTED A T [facility] 6720 (BEAKER) (test code = [facility], 1538) [address]: Sustainability Specialist/Techni salma ID = [id number] for Sa ntiago (contract), Cry stal POCT-GLUCOSE [id number] 08:59:33 Test Item Value Reference Range Interpretation Comments POC-GLUCOSE METER 93 mg/dL 70-110 : TESTED A T [facility] 6720 (AKER) (test code = [facility], 1538) [address]: Sustainability Specialist/Techni salma ID = [id number] for Darrell iago (contract), Cry stal POCT-GLUCOSE [id number] 08:59:32 Test Item Value Reference Range Interpretation Comments POC-GLUCOSE METER 111 mg/dL 70-110 H : TESTED A T [facility] 6720 (BEAKER) (test code = [facility], 1538) [id number]: Sustainability Specialist/Techni salma ID = [id number] for Si ms (contract), Bill eya POCT-GLUCOSE [id number] 08:03:32 Test Item Value Reference Range Interpretation Comments POC-GLUCOSE METER 184 mg/dL 70-110 H : TESTED A T [facility] 6720 (BEAKER) (test code [facility], = 1538) [id number]: Sustainability Specialist/Techni salma ID = [id number] for Alyssa lorenzo (contract)Radha (CELLAVISION MANUAL DIFF)2021-06-22 07:55:21 Test Item Value Reference Range Interpretation Comments NEUTROPHILS - REL 93 % (CELLAVISION)(BEAKER) (test code = 2816) LYMPHOCYTES - REL 3 % (CELLAVISION)(BEAKER) (test code = 2817) MONOCYTES - REL 2 % (CELLAVISION)(BEAKER) (test code = 2818) MYELOCYTES - REL 1 % 0-0 H (CELLAVISION)(BEAKER) (test code = 2822) BANDS - REL (CELLAVISION)(BEAKER) 1 % 0-10 (test code = 2826) NEUTROPHILS - ABS 15.72 K/ul 1.78-5.38 H (CELLAVISION)(BEAKER) (test code = 2830) LYMPHOCYTES - ABS 0.51 K/ul 1.32-3.57 L (CELLAVISION)(BEAKER) (test code = 2831) MONOCYTES - ABS 0.34 K/uL 0.30-0.82 (CELLAVISION)(BEAKER) (test code = 2832) MYELOCYTES-ABS 0.17 K/uL 0.00-0.00 H (CELLAVISION)(BEAKER) (test code = 2837) BANDS - ABS (CELLAVISION)(BEAKER) 0.17 K/uL 0.00-0.80 (test code = 2840) TOTAL COUNTED (BEAKER) (test code 100 = 1351) RBC MORPHOLOGY (BEAKER) (test code Normal = 762) WBC MORPHOLOGY (BEAKER) (test code Normal = 487) PLT MORPHOLOGY (BEAKER) (test code Normal = 486) ARTIFACT (CELLAVISION)(BEAKER) Present (test code = 3432) PLATELET CONCENTRATION Adequate (CELLAVISION)(BEAKER) (test code = 3438) Sustainability Specialist ID - Bayron comments: Slide comments:CBC W/PLT COUNT & AUTO [id number] 07:55:18 Test Item Value Reference Range Interpretation Comments WHITE BLOOD CELL COUNT (BEAKER) 16.9 K/ L 3.5-10.5 H (test code = 775) RED BLOOD CELL COUNT (BEAKER) 3.35 M/ L 4.63-6.08 L (test code = 761) HEMOGLOBIN (BEAKER) (test code = 9.3 GM/DL 13.7-17.5 L 410) HEMATOCRIT (BEAKER) (test code = 30.5 % 40.1-51.0 L 411) MEAN CORPUSCULAR VOLUME (BEAKER) 91.0 fL 79.0-92.2 (test code = 753) MEAN CORPUSCULAR HEMOGLOBIN 27.8 pg 25.7-32.2 (BEAKER) (test code = 751) MEAN CORPUSCULAR HEMOGLOBIN CONC 30.5 GM/DL 32.3-36.5 L (BEAKER) (test code = 752) RED CELL DISTRIBUTION WIDTH 16.3 % 11.6-14.4 H (BEAKER) (test code = 412) PLATELET COUNT (BEAKER) (test 223 K/CU MM 150-450 code = 756) MEAN PLATELET VOLUME (BEAKER) 11.8 fL 9.4-12.4 (test code = 754) NUCLEATED RED BLOOD CELLS 0 /100 WBC 0-0 (BEAKER) (test code = 413) POCT-GLUCOSE [id number] 07:04:16 Test Item Value Reference Range Interpretation Comments POC-GLUCOSE METER 202 mg/dL 70-110 H : TESTED A T [facility] 6720 (BEAKER) (test code = [facility], 1538) 71258: Sustainability Specialist/Techni salma ID = [id number] for Se ramirez (contract)Vandana POCT-GLUCOSE [id number] 05:56:59 Test Item Value Reference Range Interpretation Comments POC-GLUCOSE METER 172 mg/dL 70-110 H : TESTED A T [facility] 6720 (BEAKER) (test code = [facility], 1538) 60308: Sustainability Specialist/Techni salma ID = [id number] for Pola rios (contract)Bar LACTATE DEHYDROGENASE (LDH)2021-06-22 05:20:19 Test Item Value Reference Range Interpretation Comments LACTATE DEHYDROGENASE 351 U/L 125-220 H Specim en slightly (BEAKER) (test code = hemoly zed 635) Sustainability Specialist ID - PIAYA LHEPATIC FUNCTION [id number] 04:46:41 Test Item Value Reference Range Interpretation Comments TOTAL PROTEIN (BEAKER) 4.9 gm/dL 6.0-8.3 L Speci men slightly (test code = 770) hemolyzed ALBUMIN (BEAKER) (test 2.2 g/dL 3.5-5.0 L Speci men slightly code = 1145) hemolyzed BILIRUBIN TOTAL 0.4 mg/dL 0.2-1.2 Specimen sli ghtly (BEAKER) (test code = hemoly zed 377) BILIRUBIN DIRECT 0.2 mg/dL 0.1-0.5 Specimen sl ightly (BEAKER) (test code = hemoly zed 706) ALKALINE PHOSPHATASE 58 U/L 40-150 (BEAKER) (test code = 346) AST (SGOT) (BEAKER) 29 U/L 5-34 Specimen slightly (test code = 353) hemolyzed ALT (SGPT) (BEAKER) 33 U/L 6-55 Specimen slightly (test code = 347) hemolyzed Sustainability Specialist ID - JULIETTE LBASIC METABOLIC [id number] 04:46:40 Test Item Value Reference Range Interpretation Comments SODIUM (BEAKER) 146 meq/L 136-145 H (test code = 381) POTASSIUM (BEAKER) 4.3 meq/L 3.5-5.1 Specimen slightly (test code = 379) hemolyzed CHLORIDE (BEAKER) 120 meq/L 98-107 H (test code = 382) CO2 (BEAKER) (test 18 meq/L 22-29 L code = 355) BLOOD UREA NITROGEN 49 mg/dL 7-21 H (BEAKER) (test code = 354) CREATININE (BEAKER) 1.60 mg/dL 0.57-1.25 H Specimen slightly (test code = 358) hemolyzed GLUCOSE RANDOM 162 mg/dL 70-105 H (BEAKER) (test code = 652) CALCIUM (BEAKER) 8.3 mg/dL 8.4-10.2 L (test code = 697) EGFR (BEAKER) (test 43 mL/min/1.73 ESTIMA OZIEL GFR IS code = 1092) sq m NOT ACCURATE CREATININE CLEARANCE IN PREDICTING GLOMERULAR FILTRATION RATE . ESTIMATED GFR I S NOT APPLICABLE FOR DIALYSIS PATIEN TS. Sustainability Specialist ID - JULIETTE [id number] 04:46:39 Test Item Value Reference Range Interpretation Comments MAGNESIUM (BEAKER) 2.1 mg/dL 1.6-2.6 Specimen slightly (test code = 627) hemolyzed Sustainability Specialist ID - JULIETTE [id number] 04:46:39 Test Item Value Reference Range Interpretation Comments PHOSPHORUS (BEAKER) 3.7 mg/dL 2.3-4.7 Specimen slightly (test code = 604) hemolyzed Sustainability Specialist ID - JULIETTE [id number] 04:23:27 Test Item Value Reference Range Interpretation Comments PARTIAL THROMBOPLASTIN TIME 68.0 seconds 22.5-36.0 H (BEAKER) (test code = 760) BLOOD GAS, [id number] 04:12:56 Test Item Value Reference Range Interpretation Comments PH ARTERIAL (BEAKER) (test code = 7.36 7.35-7.45 383) PCO2 ARTERIAL (BEAKER) (test code 36 mm Hg 35-45 = 384) PO2 ARTERIAL (BEAKER) (test code 159 mm Hg 80-90 H = 385) O2 SATURATION ARTERIAL (BEAKER) 99.0 % 96.0-97.0 H (test code = 386) HCO3 ARTERIAL (BEAKER) (test code 20 mmol/L 21-29 L = 388) BASE EXCESS ARTERIAL (BEAKER) -5.3 mmol/L -2.0-3.0 L (test code = 387) PATIENT TEMPERATURE (BEAKER) 36.7 (test code = 1818) FIO2 (BEAKER) (test code = 1819) 30.0 POCT-GLUCOSE [id number] 04:06:43 Test Item Value Reference Range Interpretation Comments POC-GLUCOSE METER 162 mg/dL 70-110 H : TESTED A T [facility] 6720 (BEAKER) (test code = [facility], 153) 26306: Sustainability Specialist/Techni salma ID = [id number] for Sc gabriel (contract), Bar kuldip POCT-GLUCOSE [id number] 03:32:05 Test Item Value Reference Range Interpretation Comments POC-GLUCOSE METER 128 mg/dL 70-110 H : TESTED A T [facility] 6720 (BEAKER) (test code = [facility], 1538) 86691: Sustainability Specialist/Techni salma ID = [id number] for Se ramirez (contract), Vandana ice POCT-GLUCOSE [id number] 03:21:29 Test Item Value Reference Range Interpretation Comments POC-GLUCOSE METER 145 mg/dL 70-110 H : TESTED A T [facility] 6720 (BEAKER) (test code = [facility], 1538) 06769: Sustainability Specialist/Techni salma ID = [id number] for Sc gabriel (contract), Bar kuldip POCT-GLUCOSE [id number] 02:16:04 Test Item Value Reference Range Interpretation Comments POC-GLUCOSE METER 163 mg/dL 70-110 H : TESTED A T [facility] 6720 (BEAKER) (test code = [facility], 1538) 70303: Sustainability Specialist/Techni salma ID = [id number] for Sc gabriel (contract), Bar christiansen VANCOMYCIN LEVEL, [id number] 01:49:09 Test Item Value Reference Range Interpretation Comments VANCOMYCIN TROUGH (BEAKER) (test 19.7 ug/mL 10.0-20.0 code = 522) Sustainability Specialist ID - BSPOCT-GLUCOSE [id number] 00:14:03 Test Item Value Reference Range Interpretation Comments POC-GLUCOSE METER 185 mg/dL 70-110 H : TESTED A T [facility] 6720 (BEAKER) (test code = [facility], 1538) 94492: Sustainability Specialist/Techni salma ID = [id number] for Sc gabriel (contract), Bar christiansen POCT-GLUCOSE [id number] 23:17:39 Test Item Value Reference Range Interpretation Comments POC-GLUCOSE METER 218 mg/dL 70-110 H : TESTED A T [facility] 6720 (BEAKER) (test code = [facility], 1538) 75970: Sustainability Specialist/Techni salma ID = [id number] for Sc gabriel (contract), Bar christiansen BASIC METABOLIC [id number] 22:52:31 Test Item Value Reference Range Interpretation Comments SODIUM (BEAKER) 144 meq/L 136-145 (test code = 381) POTASSIUM (BEAKER) 4.1 meq/L 3.5-5.1 (test code = 379) CHLORIDE (BEAKER) 120 meq/L 98-107 H (test code = 382) CO2 (BEAKER) (test 16 meq/L 22-29 L code = 355) BLOOD UREA NITROGEN 50 mg/dL 7-21 H (BEAKER) (test code = 354) CREATININE (BEAKER) 1.65 mg/dL 0.57-1.25 H (test code = 358) GLUCOSE RANDOM 267 mg/dL 70-105 H (BEAKER) (test code = 652) CALCIUM (BEAKER) 8.6 mg/dL 8.4-10.2 (test code = 697) EGFR (BEAKER) (test 41 mL/min/1.73 ESTIMA OZIEL GFR IS code = 1092) sq m NOT ACCURATE CREATININE CLEARANCE IN PREDICTING GLOMERULAR FILTRATION RATE . ESTIMATED GFR I S NOT APPLICABLE FOR DIALYSIS PATIEN TS. Sustainability Specialist ID - BSPOCT-GLUCOSE [id number] 22:15:38 Test Item Value Reference Range Interpretation Comments POC-GLUCOSE METER 217 mg/dL 70-110 H : TESTED A T [facility] 6720 (BEAKER) (test code = [facility], 1538) 12780: Sustainability Specialist/Techni salma ID = [id number] for Se ramirez (contract), Vandana ice POCT-GLUCOSE [id number] 21:29:38 Test Item Value Reference Range Interpretation Comments POC-GLUCOSE METER 200 mg/dL 70-110 H : TESTED A T [facility] 6720 (BEAKER) (test code = [facility], 1538) 78648: Sustainability Specialist/Techni salma ID = [id number] for Sc gabriel (contract), Bar kuldip POCT-GLUCOSE [id number] 20:36:29 Test Item Value Reference Range Interpretation Comments POC-GLUCOSE METER 147 mg/dL 70-110 H : TESTED A T [facility] 6720 (BEAKER) (test code = [facility], 1538) 98399: Sustainability Specialist/Techni salma ID = [id number] for Se ramirez (contract), Vandana ice POCT-GLUCOSE [id number] 20:07:43 Test Item Value Reference Range Interpretation Comments POC-GLUCOSE METER 149 mg/dL 70-110 H : TESTED A T [facility] 6720 (BEAKER) (test code = [facility], 1538) 24110: Sustainability Specialist/Techni salma ID = [id number] for Se ramirez (contract), Vandana ice BASIC METABOLIC [id number] 18:43:30 Test Item Value Reference Range Interpretation Comments SODIUM (BEAKER) 146 meq/L 136-145 H (test code = 381) POTASSIUM (BEAKER) 4.3 meq/L 3.5-5.1 Specimen moderately (test code = 379) hemolyzed CHLORIDE (BEAKER) 120 meq/L 98-107 H (test code = 382) CO2 (BEAKER) (test 22 meq/L 22-29 code = 355) BLOOD UREA NITROGEN 50 mg/dL 7-21 H (BEAKER) (test code = 354) CREATININE (BEAKER) 1.62 mg/dL 0.57-1.25 H Specimen moderately (test code = 358) hemolyzed GLUCOSE RANDOM 173 mg/dL 70-105 H (BEAKER) (test code = 652) CALCIUM (BEAKER) 8.4 mg/dL 8.4-10.2 (test code = 697) EGFR (BEAKER) (test 42 mL/min/1.73 ESTIMA OZIEL GFR IS code = 1092) sq m NOT ACCURATE CREATININE CLEARANCE IN PREDICTING GLOMERULAR FILTRATION RATE . ESTIMATED GFR I S NOT APPLICABLE FOR DIALYSIS PATIEN TS. Sustainability Specialist ID - [id number] 18:43:29 Test Item Value Reference Range Interpretation Comments MAGNESIUM (BEAKER) 2.0 mg/dL 1.6-2.6 Specimen moderately (test code = 627) hemolyzed Sustainability Specialist ID - [id number] 18:22:25 Test Item Value Reference Range Interpretation Comments PARTIAL THROMBOPLASTIN TIME 58.7 seconds 22.5-36.0 H (BEAKER) (test code = 760) POCT-GLUCOSE [id number] 16:35:02 Test Item Value Reference Range Interpretation Comments POC-GLUCOSE METER 74 mg/dL 70-110 : TESTED A T [facility] 6720 (BEAKER) (test code = [facility], 1538) 33286: Sustainability Specialist/Techni salma ID = [id number] for Darrell iago (contract), Cry stal POCT-GLUCOSE [id number] 13:14:41 Test Item Value Reference Range Interpretation Comments POC-GLUCOSE METER 154 mg/dL 70-110 H : TESTED A T [facility] 6720 (BEAKER) (test code = [facility], 1538) 08762: Sustainability Specialist/Techni salma ID = [id number] for Sa williamiago (contract), Cry stal [id number] 12:57:49 Test Item Value Reference Range Interpretation Comments PARTIAL THROMBOPLASTIN TIME 63.0 seconds 22.5-36.0 H (BEAKER) (test code = 760) POCT-GLUCOSE [id number] 12:22:28 Test Item Value Reference Range Interpretation Comments POC-GLUCOSE METER 178 mg/dL 70-110 H : TESTED A T [facility] 6720 (BEAKER) (test code = [facility], 1538) 12936: Sustainability Specialist/Techni salma ID = [id number] for Si ms (contract), Bill eya BASIC METABOLIC [id number] 11:44:24 Test Item Value Reference Range Interpretation Comments SODIUM (BEAKER) 145 meq/L 136-145 (test code = 381) POTASSIUM (BEAKER) 3.5 meq/L 3.5-5.1 (test code = 379) CHLORIDE (BEAKER) 119 meq/L 98-107 H (test code = 382) CO2 (BEAKER) (test 20 meq/L 22-29 L code = 355) BLOOD UREA NITROGEN 51 mg/dL 7-21 H (BEAKER) (test code = 354) CREATININE (BEAKER) 1.56 mg/dL 0.57-1.25 H (test code = 358) GLUCOSE RANDOM 259 mg/dL 70-105 H (BEAKER) (test code = 652) CALCIUM (BEAKER) 8.3 mg/dL 8.4-10.2 L (test code = 697) EGFR (BEAKER) (test 44 mL/min/1.73 ESTIMA OZIEL GFR IS code = 1092) sq m NOT ACCURATE CREATININE CLEARANCE IN PREDICTING GLOMERULAR FILTRATION RATE . ESTIMATED GFR I S NOT APPLICABLE FOR DIALYSIS PATIEN TS. Sustainability Specialist ID - BSPOCT-GLUCOSE [id number] 11:28:28 Test Item Value Reference Range Interpretation Comments POC-GLUCOSE METER 204 mg/dL 70-110 H : TESTED A T [facility] 6720 (BEAKER) (test code = [place], 1538) [address]: Sustainability Specialist/Techni salma ID = [id number] for Evita ambrocio (contract), Bill garcia HEMOGLOBIN AND [id number] 10:58:05 Test Item Value Reference Range Interpretation Comments HEMOGLOBIN (BEAKER) (test code = 9.6 GM/DL 13.7-17.5 L 410) HEMATOCRIT (BEAKER) (test code = 30.0 % 40.1-51.0 L 411) Sustainability Specialist ID - [id number] GAS, [id number] 10:46:43 Test Item Value Reference Range Interpretation Comments PH ARTERIAL (BEAKER) (test code = 7.46 7.35-7.45 H 383) PCO2 ARTERIAL (BEAKER) (test code 28 mm Hg 35-45 L = 384) PO2 ARTERIAL (BEAKER) (test code 122 mm Hg 80-90 H = 385) O2 SATURATION ARTERIAL (BEAKER) 98.6 % 96.0-97.0 H (test code = 386) HCO3 ARTERIAL (BEAKER) (test code 19 mmol/L 21-29 L = 388) BASE EXCESS ARTERIAL (BEAKER) -3.9 mmol/L -2.0-3.0 L (test code = 387) PATIENT TEMPERATURE (BEAKER) 36.8 (test code = 1818) FIO2 (BEAKER) (test code = 1819) 50.0 POCT-GLUCOSE [id number] 10:35:17 Test Item Value Reference Range Interpretation Comments POC-GLUCOSE METER 207 mg/dL 70-110 H : Notified RN/MD: ([facility]) (test code = TESTED AT [place] [address] 153) [facility], [address]: Sustainability Specialist/Techni salma ID = [id number] for Si ms (contract), Bill eya POCT-GLUCOSE [id number] 09:36:48 Test Item Value Reference Range Interpretation Comments POC-GLUCOSE METER 188 mg/dL 70-110 H : Notified RN/MD: ([facility]) (test code = TESTED AT [place] [address] 153) [facility], [address]: Sustainability Specialist/Techni salma ID = [id number] for Si ms (contract), Bill eya BLOOD [id number] 09:00:28 Test Item Value Reference Range Interpretation Comments CULTURE (BEAKER) (test No growth in 5 days code = 1095) The specimen volume collected for this blood culture was below the optimum (10 mL per bottle or 20 mL total). Use of lower volumes may adversely affect recovery and/or detection times of some organisms.BLOOD [id number] 08:49:46 Test Item Value Reference Range Interpretation Comments CULTURE A From Anaerobic Bottle (BEAKER) (test Only Same [facility] has code = 1095) been isolated f rom cultures(s) of the same body site within 3 days. Repeat identification and susceptibility testing performed only after consultation wi th the clinical microb iology laboratory.Refe r to previous cultur e ofMethicillin resistant Staphylococcus aureus GRAM STAIN From anaerobic RESULT (BEAKER) bottle only: gram (test code = positive cocci in 1123) clusters The specimen volume collected for this blood culture was below the optimum (10 mL per bottle or 20 mL total). Use of lower volumes may adversely affect recovery and/or detection times of some organisms.POCT-GLUCOSE [id number] 08:35:48 Test Item Value Reference Range Interpretation Comments POC-GLUCOSE METER 218 mg/dL 70-110 H : TESTED Jake T [facility] 6720 (BEAKER) (test code = [place] [place], 1538) [address]: Sustainability Specialist/Techni salma ID = [id number] for Si ms (contract), Bill eya (CELLAVISION MANUAL DIFF)2021-06-21 07:43:33 Test Item Value Reference Range Interpretation Comments NEUTROPHILS - REL 93 % (CELLAVISION)(BEAKER) (test code = 2816) LYMPHOCYTES - REL 4 % (CELLAVISION)(BEAKER) (test code = 2817) MONOCYTES - REL 3 % (CELLAVISION)(BEAKER) (test code = 2818) NEUTROPHILS - ABS 17.39 K/ul 1.78-5.38 H (CELLAVISION)(BEAKER) (test code = 2830) LYMPHOCYTES - ABS 0.75 K/ul 1.32-3.57 L (CELLAVISION)(BEAKER) (test code = 2831) MONOCYTES - ABS 0.56 K/uL 0.30-0.82 (CELLAVISION)(BEAKER) (test code = 2832) TOTAL COUNTED (BEAKER) (test code 100 = 1351) WBC MORPHOLOGY (BEAKER) (test code Normal = 487) PLT MORPHOLOGY (BEAKER) (test code Normal = 486) POIKILOCYTES (BEAKER) (test code = 1+ few 966) SPHEROCYTES (BEAKER) (test code = 1+ few 768) ELLIPTOCYTES (BEAKER) (test code = 1+ few 962) ARTIFACT (CELLAVISION)(BEAKER) Present (test code = 3432) PLATELET CONCENTRATION Adequate (CELLAVISION)(BEAKER) (test code = 3438) Sustainability Specialist ID - emmanuel Alonso comments: Slide comments:CBC W/PLT COUNT & AUTO [id number] 07:43:32 Test Item Value Reference Range Interpretation Comments WHITE BLOOD CELL COUNT (BEAKER) 18.7 K/ L 3.5-10.5 H (test code = 775) RED BLOOD CELL COUNT (BEAKER) 3.48 M/ L 4.63-6.08 L (test code = 761) HEMOGLOBIN (BEAKER) (test code = 9.7 GM/DL 13.7-17.5 L 410) HEMATOCRIT (BEAKER) (test code = 31.3 % 40.1-51.0 L 411) MEAN CORPUSCULAR VOLUME (BEAKER) 89.9 fL 79.0-92.2 (test code = 753) MEAN CORPUSCULAR HEMOGLOBIN 27.9 pg 25.7-32.2 (BEAKER) (test code = 751) MEAN CORPUSCULAR HEMOGLOBIN CONC 31.0 GM/DL 32.3-36.5 L (BEAKER) (test code = 752) RED CELL DISTRIBUTION WIDTH 16.3 % 11.6-14.4 H (BEAKER) (test code = 412) PLATELET COUNT (BEAKER) (test 220 K/CU MM 150-450 code = 756) MEAN PLATELET VOLUME (BEAKER) 12.0 fL 9.4-12.4 (test code = 754) NUCLEATED RED BLOOD CELLS 0 /100 WBC 0-0 (BEAKER) (test code = 413) BASIC METABOLIC [id number] 06:56:26 Test Item Value Reference Range Interpretation Comments SODIUM (BEAKER) 147 meq/L 136-145 H (test code = 381) POTASSIUM (BEAKER) 4.1 meq/L 3.5-5.1 (test code = 379) CHLORIDE (BEAKER) 121 meq/L 98-107 H (test code = 382) CO2 (BEAKER) (test 20 meq/L 22-29 L code = 355) BLOOD UREA NITROGEN 52 mg/dL 7-21 H (BEAKER) (test code = 354) CREATININE (BEAKER) 1.52 mg/dL 0.57-1.25 H (test code = 358) GLUCOSE RANDOM 163 mg/dL 70-105 H (BEAKER) (test code = 652) CALCIUM (BEAKER) 8.5 mg/dL 8.4-10.2 (test code = 697) EGFR (BEAKER) (test 45 mL/min/1.73 ESTIMA OZIEL GFR IS code = 1092) sq m NOT ACCURATE CREATININE CLEARANCE IN PREDICTING GLOMERULAR FILTRATION RATE . ESTIMATED GFR I S NOT APPLICABLE FOR DIALYSIS PATIEN TS. Sustainability Specialist ID - JAKE EPATIC FUNCTION [id number] 06:37:52 Test Item Value Reference Range Interpretation Comments TOTAL PROTEIN (BEAKER) (test code = 5.0 gm/dL 6.0-8.3 L 770) ALBUMIN (BEAKER) (test code = 1145) 2.4 g/dL 3.5-5.0 L BILIRUBIN TOTAL (BEAKER) (test code 0.5 mg/dL 0.2-1.2 = 377) BILIRUBIN DIRECT (BEAKER) (test 0.2 mg/dL 0.1-0.5 code = 706) ALKALINE PHOSPHATASE (BEAKER) (test 67 U/L 40-150 code = 346) AST (SGOT) (BEAKER) (test code = 43 U/L 5-34 H 353) ALT (SGPT) (BEAKER) (test code = 31 U/L 6-55 347) Sustainability Specialist ID - JAKE MLACTATE DEHYDROGENASE (LDH)2021-06-21 06:37:52 Test Item Value Reference Range Interpretation Comments LACTATE DEHYDROGENASE (BEAKER) (test 402 U/L 125-220 H code = 635) Sustainability Specialist ID - JAKE [id number] 06:37:51 Test Item Value Reference Range Interpretation Comments PHOSPHORUS (BEAKER) (test code = 2.5 mg/dL 2.3-4.7 604) Sustainability Specialist ID - JAKE [id number] 06:37:50 Test Item Value Reference Range Interpretation Comments MAGNESIUM (BEAKER) (test code = 2.1 mg/dL 1.6-2.6 627) Sustainability Specialist ID - JAKE MPOCT-GLUCOSE [id number] 06:29:12 Test Item Value Reference Range Interpretation Comments POC-GLUCOSE METER 179 mg/dL 70-110 H : TESTED A T [facility] 6720 (BEAKER) (test code = [facility] [place], 1538) [address]: Sustainability Specialist/Techni salma ID = [id number] for GENE NOONAN [id number] 06:01:57 Test Item Value Reference Range Interpretation Comments PARTIAL THROMBOPLASTIN TIME 55.5 seconds 22.5-36.0 H (BEAKER) (test code = 760) POCT-GLUCOSE [id number] 05:55:33 Test Item Value Reference Range Interpretation Comments POC-GLUCOSE METER 142 mg/dL 70-110 H : TESTED A T [facility] 6720 (BEAKER) (test code = [facility], 1538) 48729: Sustainability Specialist/Techni salma ID = [id number] for TH OMMANOJ THOMASDY BLOOD GAS, [id number] 05:48:07 Test Item Value Reference Range Interpretation Comments PH ARTERIAL (BEAKER) (test code = 7.43 7.35-7.45 383) PCO2 ARTERIAL (BEAKER) (test code 31 mm Hg 35-45 L = 384) PO2 ARTERIAL (BEAKER) (test code 121 mm Hg 80-90 H = 385) O2 SATURATION ARTERIAL (BEAKER) 98.5 % 96.0-97.0 H (test code = 386) HCO3 ARTERIAL (BEAKER) (test code 20 mmol/L 21-29 L = 388) BASE EXCESS ARTERIAL (BEAKER) -3.7 mmol/L -2.0-3.0 L (test code = 387) PATIENT TEMPERATURE (BEAKER) 37.5 (test code = 1818) FIO2 (BEAKER) (test code = 1819) 21.0 POCT-GLUCOSE [id number] 04:55:01 Test Item Value Reference Range Interpretation Comments POC-GLUCOSE METER 150 mg/dL 70-110 H : TESTED A T [facility] 6720 (BEAKER) (test code = [facility], 1538) 05462: Sustainability Specialist/Techni salma ID = [id number] for TH OMAS, GENE POCT-GLUCOSE [id number] 03:37:14 Test Item Value Reference Range Interpretation Comments POC-GLUCOSE METER 178 mg/dL 70-110 H : TESTED A T [facility] 6720 (BEAKER) (test code = [facility], 1538) 36137: Sustainability Specialist/Techni salma ID = [id number] for TH OMAS, GENE POCT-GLUCOSE [id number] 02:13:18 Test Item Value Reference Range Interpretation Comments POC-GLUCOSE METER 203 mg/dL 70-110 H : TESTED A T [facility] 6720 (BEAKER) (test code = [facility], 1538) 78[address]: Sustainability Specialist/Techni salma ID = [id number] for Jair sheth (contract)Suzanne [facility] POCT-GLUCOSE [id number] 01:13:25 Test Item Value Reference Range Interpretation Comments POC-GLUCOSE METER 174 mg/dL 70-110 H : TESTED A T [facility] 6720 (BEAKER) (test code = [facility], 1538) 28655: Sustainability Specialist/Techni salma ID = [id number] for GENE NOONAN BASIC METABOLIC [id number] 23:56:35 Test Item Value Reference Range Interpretation Comments SODIUM (BEAKER) 147 meq/L 136-145 H (test code = 381) POTASSIUM (BEAKER) 4.2 meq/L 3.5-5.1 (test code = 379) CHLORIDE (BEAKER) 124 meq/L 98-107 H (test code = 382) CO2 (BEAKER) (test 16 meq/L 22-29 L code = 355) BLOOD UREA NITROGEN 57 mg/dL 7-21 H (BEAKER) (test code = 354) CREATININE (BEAKER) 1.54 mg/dL 0.57-1.25 H (test code = 358) GLUCOSE RANDOM 181 mg/dL 70-105 H (BEAKER) (test code = 652) CALCIUM (BEAKER) 8.5 mg/dL 8.4-10.2 (test code = 697) EGFR (BEAKER) (test 45 mL/min/1.73 ESTIMA OZIEL GFR IS code = 1092) sq m NOT ACCURATE CREATININE CLEARANCE IN PREDICTING GLOMERULAR FILTRATION RATE . ESTIMATED GFR I S NOT APPLICABLE FOR DIALYSIS PATIEN TS. Sustainability Specialist ID - BSPOCT-GLUCOSE [id number] 23:28:16 Test Item Value Reference Range Interpretation Comments POC-GLUCOSE METER 153 mg/dL 70-110 H : TESTED A T [facility] 6720 (BEAKER) (test code = [facility], 1538) [id number]: Sustainability Specialist/Techni salma ID = [id number] for Jair sheth (contract), Suzanne iasuhas [id number] 23:13:29 Test Item Value Reference Range Interpretation Comments PARTIAL THROMBOPLASTIN TIME 47.8 seconds 22.5-36.0 H (BEAKER) (test code = 760) BLOOD GAS, [id number] 22:56:28 Test Item Value Reference Range Interpretation Comments PH ARTERIAL (BEAKER) (test code = 7.41 7.35-7.45 383) PCO2 ARTERIAL (BEAKER) (test code 32 mm Hg 35-45 L = 384) PO2 ARTERIAL (BEAKER) (test code 143 mm Hg 80-90 H = 385) O2 SATURATION ARTERIAL (BEAKER) 98.8 % 96.0-97.0 H (test code = 386) HCO3 ARTERIAL (BEAKER) (test code 19 mmol/L 21-29 L = 388) BASE EXCESS ARTERIAL (BEAKER) -4.3 mmol/L -2.0-3.0 L (test code = 387) PATIENT TEMPERATURE (BEAKER) 38.0 (test code = 1818) FIO2 (BEAKER) (test code = 1819) 21.0 HEMOGLOBIN AND [id number] 22:55:44 Test Item Value Reference Range Interpretation Comments HEMOGLOBIN (BEAKER) (test code = 9.7 GM/DL 13.7-17.5 L 410) HEMATOCRIT (BEAKER) (test code = 30.6 % 40.1-51.0 L 411) Sustainability Specialist ID - [id number] [id number] 22:36:17 Test Item Value Reference Range Interpretation Comments POC-GLUCOSE METER 164 mg/dL 70-110 H : TESTED A T [facility] 6720 (BEAKER) (test code = [facility], 153) [id number]: Sustainability Specialist/Techni salma ID = [id number] for Jair sheth (contract)Suzanne POCT-GLUCOSE [id number] 21:12:44 Test Item Value Reference Range Interpretation Comments POC-GLUCOSE METER 180 mg/dL 70-110 H : TESTED A T [facility] 6720 (BEAKER) (test code = [facility], 153) [id number]: Sustainability Specialist/Techni salma ID = [id number] for TH OMAS, GENE POCT-GLUCOSE [id number] 21:00:37 Test Item Value Reference Range Interpretation Comments POC-GLUCOSE METER 161 mg/dL 70-110 H : TESTED A T [facility] 6720 (BEAKER) (test code = [facility], 153) 73489: Sustainability Specialist/Techni salma ID = [id number] for TH OMAS, GENE [id number] 18:25:57 Test Item Value Reference Range Interpretation Comments MAGNESIUM (BEAKER) (test code = 2.1 mg/dL 1.6-2.6 627) Sustainability Specialist ID - ADMINPOCT-GLUCOSE [id number] 18:23:31 Test Item Value Reference Range Interpretation Comments POC-GLUCOSE METER 190 mg/dL 70-110 H : TESTED A T [facility] 6720 (BEAKER) (test code = [facility], 1538) 17987: Sustainability Specialist/Techni salma ID = [id number] for Caro Centeria (contract), [facility] stal BLOOD GAS, [id number] 18:12:27 Test Item Value Reference Range Interpretation Comments PH ARTERIAL (BEAKER) (test code = 7.44 7.35-7.45 383) PCO2 ARTERIAL (BEAKER) (test code 29 mm Hg 35-45 L = 384) PO2 ARTERIAL (BEAKER) (test code 71 mm Hg 80-90 L = 385) O2 SATURATION ARTERIAL (BEAKER) 95.3 % 96.0-97.0 L (test code = 386) HCO3 ARTERIAL (BEAKER) (test code 19 mmol/L 21-29 L = 388) BASE EXCESS ARTERIAL (BEAKER) -4.6 mmol/L -2.0-3.0 L (test code = 387) PATIENT TEMPERATURE (BEAKER) 36.7 (test code = 1818) FIO2 (BEAKER) (test code = 1819) 21.0 POCT-GLUCOSE [id number] 18:10:29 Test Item Value Reference Range Interpretation Comments POC-GLUCOSE METER 141 mg/dL 70-110 H : TESTED A T [facility] 6720 (BEAKER) (test code = [facility], 1538) 15163: Sustainability Specialist/Techni salma ID = [id number] for ntiago (contract), [facility] sta BASIC METABOLIC [id number] 17:25:53 Test Item Value Reference Range Interpretation Comments SODIUM (BEAKER) 148 meq/L 136-145 H (test code = 381) POTASSIUM (BEAKER) 3.4 meq/L 3.5-5.1 L (test code = 379) CHLORIDE (BEAKER) 123 meq/L 98-107 H (test code = 382) CO2 (BEAKER) (test 20 meq/L 22-29 L code = 355) BLOOD UREA NITROGEN 61 mg/dL 7-21 H (BEAKER) (test code = 354) CREATININE (BEAKER) 1.64 mg/dL 0.57-1.25 H (test code = 358) GLUCOSE RANDOM 161 mg/dL 70-105 H (BEAKER) (test code = 652) CALCIUM (BEAKER) 8.3 mg/dL 8.4-10.2 L (test code = 697) EGFR (SPAKER) (test 42 mL/min/1.73 ESTIMA OZIEL GFR IS code = 1092) sq m NOT ACCURATE CREATININE CLEARANCE IN PREDICTING GLOMERULAR FILTRATION RATE . ESTIMATED GFR I S NOT APPLICABLE FOR DIALYSIS PATIEN TS. Sustainability Specialist ID - ADMINPOCT-GLUCOSE [id number] 15:52:31 Test Item Value Reference Range Interpretation Comments POC-GLUCOSE METER 155 mg/dL 70-110 H : TESTED A T [facility] 6720 (GALE) (test code = [facility] [place], 1538) 49345: Sustainability Specialist/Techni salma ID = [id number] for Sa ntiago (contract), Cry stal RAD, CHEST, 1 VIEW, NON [id number] 15:39:00Reason for exam:- >pneumoniaShould this be performed at the bedside?->Yes [facility] 1950 Sex: MFINAL REPORT Chest, 1 view. History: Pneumonia. Comparison: 06/19/2021. IMPRESSION: Enteric tube noted coursing below the diaphragm. Postsurgical changes from median sternotomy again noted. 1.2 cm metallic density noted projecting over the mid lower thorax which was not present on prior examinations and may be external to the patient. There are stable appearing interstitial opacities present bilaterally. There is no evidence for new large focal consolidation, pneumothorax, or significant volume pleural effusion. The cardiomediastinal silhouette is stable in appearance. No acute osseous abnormality is identified. Signed: Willie Sanchez MDReport Verified Date/Time: 06/20/2021 15:39:31 URINALYSIS W/ REFLEX URINE [id number] 14:34:22 Test Item Value Reference Range Interpretation Comments COLOR (BEAKER) (test code = 470) Yellow CLARITY (BEAKER) (test code = 469) Clear SPECIFIC GRAVITY UA (BEAKER) (test 1.024 1.001-1.035 code = 468) PH UA (BEAKER) (test code = 467) 6.0 5.0-8.0 PROTEIN UA (BEAKER) (test code = 50 mg/dL Negative A 464) GLUCOSE UA (BEAKER) (test code = Negative Negative 365) KETONES UA (BEAKER) (test code = Negative Negative 371) BILIRUBIN UA (BEAKER) (test code = Negative Negative 462) BLOOD UA (BEAKER) (test code = 461) Trace Negative A NITRITE UA (BEAKER) (test code = Negative Negative 465) LEUKOCYTE ESTERASE UA (BEAKER) Negative Negative (test code = 466) UROBILINOGEN UA (BEAKER) (test code 0.2 mg/dL 0.2-1.0 = 463) RBC UA (BEAKER) (test code = 519) 6 /HPF WBC UA (BEAKER) (test code = 520) 32 /HPF BACTERIA (BEAKER) (test code = 517) None Seen CRYSTALS, URINE (BEAKER) (test code None Seen = 1521) SOURCE(BEAKER) (test code = 2795) Sustainability Specialist ID - [auto]Sustainability Specialist ID - techPOCT-GLUCOSE [id number] 13:31:42 Test Item Value Reference Range Interpretation Comments POC-GLUCOSE METER 115 mg/dL 70-110 H : TESTED A T [facility] 6720 (BEAKER) (test code = [facility], 1538) 79186: Sustainability Specialist/Techni salma ID = [id number] for Sa ntiago (contract), Cry stal High [facility] [place] [facility]2021-06-20 12:27:26 Test Item Value Reference Range Interpretation Comments Troponin I HS (test 153 pg/ml See_Comment H [Automa oziel code = 76290-7) message] The system which generated this result transmitted reference range : <=35. The reference range was not used to interpret this result as normal/abnormal . BANDAR (test code = Sustainability Specialist ID - BANDAR) JULIETTE LASuperbac BROWNFIELD PROGRAM COORDINATOR STAT High Sensitivity Troponin-I results should be used in conjunction with other diagnostic information such as ECG, clinical observations and information, and patient symptoms to aid in the diagnosis of SC. Lab Interpretation Abnormal (test code = 56664-7) [facility] TROPONIN [id number] 12:27:26 Test Item Value Reference Range Interpretation Comments HIGH SENSITIVITY 153 pg/ml See_Comment H [Automated message] TROPONIN I (test code The sy stem which = [id number]) generated this result transmitted ref erence range: <=35. Th e reference range was not used to int erpret this result as normal/abnormal . Sustainability Specialist ID - JULIETTE Consumer Health Advisershe BROWNFIELD PROGRAM COORDINATOR STAT High Sensitivity Troponin-I results should be used in conjunction with other diagnostic information such as ECG, clinical observations and information, and patient symptoms to aid in the diagnosis of SC.BASIC METABOLIC [id number] 12:27:25 Test Item Value Reference Range Interpretation Comments SODIUM (BEAKER) 148 meq/L 136-145 H (test code = 381) POTASSIUM (BEAKER) 3.6 meq/L 3.5-5.1 (test code = 379) CHLORIDE (BEAKER) 124 meq/L 98-107 H (test code = 382) CO2 (BEAKER) (test 18 meq/L 22-29 L code = 355) BLOOD UREA NITROGEN 67 mg/dL 7-21 H (BEAKER) (test code = 354) CREATININE (BEAKER) 1.70 mg/dL 0.57-1.25 H (test code = 358) GLUCOSE RANDOM 202 mg/dL 70-105 H (BEAKER) (test code = 652) CALCIUM (BEAKER) 8.7 mg/dL 8.4-10.2 (test code = 697) EGFR (BEAKER) (test 40 mL/min/1.73 ESTIMA OZIEL GFR IS code = 1092) sq m NOT ACCURATE CREATININE CLEARANCE IN PREDICTING GLOMERULAR FILTRATION RATE . ESTIMATED GFR I S NOT APPLICABLE FOR DIALYSIS PATIEN TS. Sustainability Specialist ID - PIAYA LCBC W/PLT COUNT & AUTO [id number] 12:03:35 Test Item Value Reference Range Interpretation Comments WHITE BLOOD CELL COUNT (BEAKER) 13.7 K/ L 3.5-10.5 H (test code = 775) RED BLOOD CELL COUNT (BEAKER) 3.60 M/ L 4.63-6.08 L (test code = 761) HEMOGLOBIN (BEAKER) (test code = 10.0 GM/DL 13.7-17.5 L 410) HEMATOCRIT (BEAKER) (test code = 31.8 % 40.1-51.0 L 411) MEAN CORPUSCULAR VOLUME (BEAKER) 88.3 fL 79.0-92.2 (test code = 753) MEAN CORPUSCULAR HEMOGLOBIN 27.8 pg 25.7-32.2 (BEAKER) (test code = 751) MEAN CORPUSCULAR HEMOGLOBIN CONC 31.4 GM/DL 32.3-36.5 L (BEAKER) (test code = 752) RED CELL DISTRIBUTION WIDTH 16.1 % 11.6-14.4 H (BEAKER) (test code = 412) PLATELET COUNT (BEAKER) (test 202 K/CU MM 150-450 code = 756) MEAN PLATELET VOLUME (BEAKER) 12.2 fL 9.4-12.4 (test code = 754) NUCLEATED RED BLOOD CELLS 0 /100 WBC 0-0 (BEAKER) (test code = 413) NEUTROPHILS RELATIVE PERCENT 89 % (BEAKER) (test code = 429) LYMPHOCYTES RELATIVE PERCENT 6 % (BEAKER) (test code = 430) MONOCYTES RELATIVE PERCENT 4 % (BEAKER) (test code = 431) EOSINOPHILS RELATIVE PERCENT 0 % (BEAKER) (test code = 432) BASOPHILS RELATIVE PERCENT 0 % (BEAKER) (test code = 437) NEUTROPHILS ABSOLUTE COUNT 12.24 K/ L 1.78-5.38 H (BEAKER) (test code = 670) LYMPHOCYTES ABSOLUTE COUNT 0.80 K/ L 1.32-3.57 L (BEAKER) (test code = 414) MONOCYTES ABSOLUTE COUNT (BEAKER) 0.56 K/ L 0.30-0.82 (test code = 415) EOSINOPHILS ABSOLUTE COUNT 0.01 K/ L 0.04-0.54 L (BEAKER) (test code = 416) BASOPHILS ABSOLUTE COUNT (BEAKER) 0.01 K/ L 0.01-0.08 (test code = 417) IMMATURE GRANULOCYTES-RELATIVE 1 % 0-1 PERCENT (BEAKER) (test code = 2801) POCT-GLUCOSE [id number] 11:29:57 Test Item Value Reference Range Interpretation Comments POC-GLUCOSE METER 159 mg/dL 70-110 H : TESTED A T [facility] 6720 (BEAKER) (test code = [facility], [facility]8) 01878: Sustainability Specialist/Techni salma ID = [id number] for Sa ntiago (contract), Cry stal POCT-GLUCOSE [id number] 09:19:11 Test Item Value Reference Range Interpretation Comments POC-GLUCOSE METER 144 mg/dL 70-110 H : TESTED A T [facility] 6720 (BEAKER) (test code = [facility], [facility]8) 97196: Sustainability Specialist/Techni salma ID = [id number] for Sa ntiago (contract), Cry stal POCT-GLUCOSE [id number] 09:16:19 Test Item Value Reference Range Interpretation Comments POC-GLUCOSE METER 86 mg/dL 70-110 : TESTED A T [facility] 6720 (BEAKER) (test code = [facility], 1538) 18009: Sustainability Specialist/Techni salma ID = [id number] for Darrell iago (contract), Cry stal POCT-GLUCOSE [id number] 06:32:15 Test Item Value Reference Range Interpretation Comments POC-GLUCOSE METER 116 mg/dL 70-110 H : TESTED A T [facility] 6720 (BEAKER) (test code = [facility], [facility]8) 47922: Sustainability Specialist/Techni salma ID = [id number] for ning (contract), [facility] BASIC METABOLIC [id number] 06:29:31 Test Item Value Reference Range Interpretation Comments SODIUM (BEAKER) 149 meq/L 136-145 H (test code = 381) POTASSIUM (BEAKER) 3.6 meq/L 3.5-5.1 (test code = 379) CHLORIDE (BEAKER) 124 meq/L 98-107 H (test code = 382) CO2 (BEAKER) (test 18 meq/L 22-29 L code = 355) BLOOD UREA NITROGEN 69 mg/dL 7-21 H (BEAKER) (test code = 354) CREATININE (BEAKER) 1.69 mg/dL 0.57-1.25 H (test code = 358) GLUCOSE RANDOM 149 mg/dL 70-105 H (BEAKER) (test code = 652) CALCIUM (BEAKER) 8.4 mg/dL 8.4-10.2 (test code = 697) EGFR (BEAKER) (test 40 mL/min/1.73 ESTIMA OZIEL GFR IS code = 1092) sq m NOT ACCURATE CREATININE CLEARANCE IN PREDICTING GLOMERULAR FILTRATION RATE . ESTIMATED GFR I S NOT APPLICABLE FOR DIALYSIS PATIEN TS. Sustainability Specialist ID - EMILIO [id number] 05:58:58 Test Item Value Reference Range Interpretation Comments PHOSPHORUS (BEAKER) (test code = 2.0 mg/dL 2.3-4.7 L 604) Sustainability Specialist ID - EMILIO WHEPATIC FUNCTION [id number] 05:58:58 Test Item Value Reference Range Interpretation Comments TOTAL PROTEIN (BEAKER) (test code = 5.1 gm/dL 6.0-8.3 L 770) ALBUMIN (BEAKER) (test code = 1145) 2.4 g/dL 3.5-5.0 L BILIRUBIN TOTAL (BEAKER) (test code 0.5 mg/dL 0.2-1.2 = 377) BILIRUBIN DIRECT (BEAKER) (test 0.2 mg/dL 0.1-0.5 code = 706) ALKALINE PHOSPHATASE (BEAKER) (test 63 U/L 40-150 code = 346) AST (SGOT) (BEAKER) (test code = 30 U/L 5-34 353) ALT (SGPT) (BEAKER) (test code = 26 U/L 6-55 347) Sustainability Specialist ID - EMILIO [id number] 05:58:57 Test Item Value Reference Range Interpretation Comments MAGNESIUM (BEAKER) (test code = 2.2 mg/dL 1.6-2.6 627) Sustainability Specialist ID - EMILIO [id number] 05:30:09 Test Item Value Reference Range Interpretation Comments PARTIAL THROMBOPLASTIN TIME 78.4 seconds 22.5-36.0 H (BEAKER) (test code = 760) POCT-GLUCOSE [id number] 05:26:11 Test Item Value Reference Range Interpretation Comments POC-GLUCOSE METER 109 mg/dL 70-110 : TESTED Jake Alexander [facility] 6720 (BEAKER) (test code = [facility] [place], 1538) 82128: Sustainability Specialist/Techni salma ID = [id number] for Trini barclay (contract)Reina CBC W/PLT COUNT & AUTO [id number] 05:18:21 Test Item Value Reference Range Interpretation Comments WHITE BLOOD CELL COUNT (BEAKER) 12.8 K/ L 3.5-10.5 H (test code = 775) RED BLOOD CELL COUNT (BEAKER) 3.52 M/ L 4.63-6.08 L (test code = 761) HEMOGLOBIN (BEAKER) (test code = 9.7 GM/DL 13.7-17.5 L 410) HEMATOCRIT (BEAKER) (test code = 30.2 % 40.1-51.0 L 411) MEAN CORPUSCULAR VOLUME (BEAKER) 85.8 fL 79.0-92.2 (test code = 753) MEAN CORPUSCULAR HEMOGLOBIN 27.6 pg 25.7-32.2 (BEAKER) (test code = 751) MEAN CORPUSCULAR HEMOGLOBIN CONC 32.1 GM/DL 32.3-36.5 L (BEAKER) (test code = 752) RED CELL DISTRIBUTION WIDTH 16.0 % 11.6-14.4 H (BEAKER) (test code = 412) PLATELET COUNT (BEAKER) (test 203 K/CU MM 150-450 code = 756) MEAN PLATELET VOLUME (BEAKER) 12.4 fL 9.4-12.4 (test code = 754) NUCLEATED RED BLOOD CELLS 0 /100 WBC 0-0 (BEAKER) (test code = 413) NEUTROPHILS RELATIVE PERCENT 90 % (BEAKER) (test code = 429) LYMPHOCYTES RELATIVE PERCENT 5 % (BEAKER) (test code = 430) MONOCYTES RELATIVE PERCENT 4 % (BEAKER) (test code = 431) EOSINOPHILS RELATIVE PERCENT 0 % (BEAKER) (test code = 432) BASOPHILS RELATIVE PERCENT 0 % (BEAKER) (test code = 437) NEUTROPHILS ABSOLUTE COUNT 11.50 K/ L 1.78-5.38 H (BEAKER) (test code = 670) LYMPHOCYTES ABSOLUTE COUNT 0.60 K/ L 1.32-3.57 L (BEAKER) (test code = 414) MONOCYTES ABSOLUTE COUNT (BEAKER) 0.54 K/ L 0.30-0.82 (test code = 415) EOSINOPHILS ABSOLUTE COUNT 0.01 K/ L 0.04-0.54 L (BEAKER) (test code = 416) BASOPHILS ABSOLUTE COUNT (BEAKER) 0.01 K/ L 0.01-0.08 (test code = 417) IMMATURE GRANULOCYTES-RELATIVE 1 % 0-1 PERCENT (BEAKER) (test code = 2801) BLOOD GAS, [id number] 04:56:50 Test Item Value Reference Range Interpretation Comments PH ARTERIAL (BEAKER) (test code = 7.40 7.35-7.45 383) PCO2 ARTERIAL (BEAKER) (test code 32 mm Hg 35-45 L = 384) PO2 ARTERIAL (BEAKER) (test code 89 mm Hg 80-90 = 385) O2 SATURATION ARTERIAL (BEAKER) 97.0 % 96.0-97.0 (test code = 386) HCO3 ARTERIAL (BEAKER) (test code 19 mmol/L 21-29 L = 388) BASE EXCESS ARTERIAL (BEAKER) -4.9 mmol/L -2.0-3.0 L (test code = 387) PATIENT TEMPERATURE (BEAKER) 36.9 (test code = 1818) FIO2 (BEAKER) (test code = 1819) 21.0 POCT-GLUCOSE [id number] 04:26:20 Test Item Value Reference Range Interpretation Comments POC-GLUCOSE METER 142 mg/dL 70-110 H : TESTED A T [facility] 6720 (BEAKER) (test code = [facility], 1538) 09939: Sustainability Specialist/Techni salma ID = [id number] for epard (contract), Reina lui POCT-GLUCOSE [id number] 03:34:54 Test Item Value Reference Range Interpretation Comments POC-GLUCOSE METER 162 mg/dL 70-110 H : TESTED A T [facility] 6720 (BEAKER) (test code = [facility], 1538) 49944: Sustainability Specialist/Techni salma ID = [id number] for epard (contract), Reina lui POCT-GLUCOSE [id number] 02:26:21 Test Item Value Reference Range Interpretation Comments POC-GLUCOSE METER 191 mg/dL 70-110 H : TESTED A T [facility] 6720 (BEAKER) (test code = [facility], [facility]8) 85848: Sustainability Specialist/Techni salma ID = [id number] for Sh epard (contract), Reina poe POCT-GLUCOSE [id number] 00:29:38 Test Item Value Reference Range Interpretation Comments POC-GLUCOSE METER 191 mg/dL 70-110 H : TESTED A T [facility] 6720 (BEAKER) (test code = [facility], [facility]8) 53801: Sustainability Specialist/Techni salma ID = [id number] for Sh epard (contract), Reina hernandese POCT-GLUCOSE [id number] 23:37:21 Test Item Value Reference Range Interpretation Comments POC-GLUCOSE METER 171 mg/dL 70-110 H : TESTED A T [facility] 6720 (BEAKER) (test code = [facility], [facility]8) 02895: Sustainability Specialist/Techni salma ID = [id number] for Sh epard (contract), Reina hernandese POCT-GLUCOSE [id number] 22:29:59 Test Item Value Reference Range Interpretation Comments POC-GLUCOSE METER 157 mg/dL 70-110 H : TESTED A T [facility] 6720 (BEAKER) (test code = [facility], [facility]8) 95312: Sustainability Specialist/Techni salma ID = [id number] for Sh epard (contract), Reina poe BASIC METABOLIC [id number] 22:24:14 Test Item Value Reference Range Interpretation Comments SODIUM (BEAKER) 148 meq/L 136-145 H (test code = 381) POTASSIUM (BEAKER) 4.1 meq/L 3.5-5.1 Specimen slightly (test code = 379) hemolyzed CHLORIDE (BEAKER) 123 meq/L 98-107 H (test code = 382) CO2 (BEAKER) (test 16 meq/L 22-29 L code = 355) BLOOD UREA NITROGEN 72 mg/dL 7-21 H (BEAKER) (test code = 354) CREATININE (BEAKER) 1.93 mg/dL 0.57-1.25 H Specimen slightly (test code = 358) hemolyzed GLUCOSE RANDOM 187 mg/dL 70-105 H (BEAKER) (test code = 652) CALCIUM (BEAKER) 8.7 mg/dL 8.4-10.2 (test code = 697) EGFR (BEAKER) (test 34 mL/min/1.73 ESTIMA OZIEL GFR IS code = 1092) sq m NOT ACCURATE CREATININE CLEARANCE IN PREDICTING GLOMERULAR FILTRATION RATE . ESTIMATED GFR I S NOT APPLICABLE FOR DIALYSIS PATIEN TS. Sustainability Specialist ID - [id number] 22:22:57 Test Item Value Reference Range Interpretation Comments PARTIAL THROMBOPLASTIN TIME 77.8 seconds 22.5-36.0 H (BEAKER) (test code = 760) POCT-GLUCOSE [id number] 21:42:01 Test Item Value Reference Range Interpretation Comments POC-GLUCOSE METER 166 mg/dL 70-110 H : TESTED A T [facility] 6720 (BEAKER) (test code = [facility], 1538) 19677: Sustainability Specialist/Techni salma ID = [id number] for MARTINEZ BRADLEY POCT-GLUCOSE [id number] 20:50:19 Test Item Value Reference Range Interpretation Comments POC-GLUCOSE METER 140 mg/dL 70-110 H : TESTED A T [facility] 6720 (BEAKER) (test code = [facility], 1538) 33566: Sustainability Specialist/Techni salma ID = [id number] for MARTINEZ BRADLEY BASIC METABOLIC [id number] 18:37:00 Test Item Value Reference Range Interpretation Comments SODIUM (BEAKER) 148 meq/L 136-145 H (test code = 381) POTASSIUM (BEAKER) 3.4 meq/L 3.5-5.1 L (test code = 379) CHLORIDE (BEAKER) 123 meq/L 98-107 H (test code = 382) CO2 (BEAKER) (test 17 meq/L 22-29 L code = 355) BLOOD UREA NITROGEN 75 mg/dL 7-21 H (BEAKER) (test code = 354) CREATININE (BEAKER) 1.92 mg/dL 0.57-1.25 H (test code = 358) GLUCOSE RANDOM 182 mg/dL 70-105 H (BEAKER) (test code = 652) CALCIUM (BEAKER) 8.6 mg/dL 8.4-10.2 (test code = 697) EGFR (BEAKER) (test 35 mL/min/1.73 ESTIMA OZIEL GFR IS code = 1092) sq m NOT ACCURATE CREATININE CLEARANCE IN PREDICTING GLOMERULAR FILTRATION RATE . ESTIMATED GFR I S NOT APPLICABLE FOR DIALYSIS PATIEN TS. Sustainability Specialist ID - DBPOCT-GLUCOSE [id number] 18:08:34 Test Item Value Reference Range Interpretation Comments POC-GLUCOSE METER 167 mg/dL 70-110 H : TESTED A T [facility] 6720 (BEAKER) (test code = [facility], 1538) 63599: Sustainability Specialist/Techni salma ID = [id number] for Sa ntiago (contract), Cry stal POCT-GLUCOSE [id number] 17:41:22 Test Item Value Reference Range Interpretation Comments POC-GLUCOSE METER 234 mg/dL 70-110 H : TESTED A T [facility] 6720 (BEAKER) (test code = [facility], 1538) 67006: Sustainability Specialist/Techni salma ID = [id number] for Sa ntiago (contract), Cry stal POCT-GLUCOSE [id number] 15:31:33 Test Item Value Reference Range Interpretation Comments POC-GLUCOSE METER 202 mg/dL 70-110 H : TESTED A T [facility] 6720 (BEAKER) (test code = [facility], 1538) 39894: Sustainability Specialist/Techni salma ID = [id number] for Sa ntiago (contract), Cry stal [id number] 14:52:20 Test Item Value Reference Range Interpretation Comments PARTIAL THROMBOPLASTIN TIME 64.7 seconds 22.5-36.0 H (BEAKER) (test code = 760) POCT-GLUCOSE [id number] 13:11:34 Test Item Value Reference Range Interpretation Comments POC-GLUCOSE METER 116 mg/dL 70-110 H : TESTED A T [facility] 6720 (BEAKER) (test code = [facility], 1538) 36784: Sustainability Specialist/Techni salma ID = [id number] for Sa ntiago (contract), Cry stal POCT-GLUCOSE [id number] 13:08:53 Test Item Value Reference Range Interpretation Comments POC-GLUCOSE METER 80 mg/dL 70-110 : TESTED A T [facility] 6720 (BEAKER) (test code = [facility], 1538) 11581: Sustainability Specialist/Techni salma ID = [id number] for Darrell delacruz (contract), Rangel stamary BASIC METABOLIC [id number] 12:55:40 Test Item Value Reference Range Interpretation Comments SODIUM (BEAKER) 150 meq/L 136-145 H (test code = 381) POTASSIUM (BEAKER) 4.0 meq/L 3.5-5.1 (test code = 379) CHLORIDE (BEAKER) 124 meq/L 98-107 H (test code = 382) CO2 (BEAKER) (test 18 meq/L 22-29 L code = 355) BLOOD UREA NITROGEN 74 mg/dL 7-21 H (BEAKER) (test code = 354) CREATININE (BEAKER) 1.87 mg/dL 0.57-1.25 H (test code = 358) GLUCOSE RANDOM 116 mg/dL 70-105 H (BEAKER) (test code = 652) CALCIUM (BEAKER) 8.8 mg/dL 8.4-10.2 (test code = 697) EGFR (BEAKER) (test 36 mL/min/1.73 ESTIMA OZIEL GFR IS code = 1092) sq m NOT ACCURATE CREATININE CLEARANCE IN PREDICTING GLOMERULAR FILTRATION RATE . ESTIMATED GFR I S NOT APPLICABLE FOR DIALYSIS PATIEN TS. Sustainability Specialist ID - PIRENÉ [id number] 12:41:30 Test Item Value Reference Range Interpretation Comments MAGNESIUM (BEAKER) (test code = 2.1 mg/dL 1.6-2.6 627) Sustainability Specialist ID - CHRISRENÉ LVANCOMYCIN LEVEL, [id number] 12:40:03 Test Item Value Reference Range Interpretation Comments VANCOMYCIN TROUGH (BEAKER) (test 21.8 ug/mL 10.0-20.0 H code = 522) Sustainability Specialist ID - JULIETTE [id number] 12:38:00 Test Item Value Reference Range Interpretation Comments PARTIAL THROMBOPLASTIN TIME 111.6 seconds 22.5-36.0 H (BEAKER) (test code = 760) RAD, CHEST, 1 VIEW, NON [id number] 10:23:00Reason for exam:->pneumonia evaluationShould this be performed at the bedside?->Yes [facility] 1950 Sex: MFINAL REPORT TECHNIQUE: Frontal view of the chest. INDICATION: pneumonia evaluation COMPARISON:06/17/2021 DISCUSSION:Limited evaluation due to portable technique. Lines and hardware: Stable midline sternotomy changes. Overlying EKG leads are noted.Heart and mediastinum: Stable.Lungs and pleura: Ill-defined bilateral interstitial and patchy airspace opacities are worse in the right and improved on the left. No large effusion or pneumothorax.Soft tissues and bones: No acute abnormality. IMPRESSION:Worsening right and improved left bilateral airspace disease. Signed: Hudson Meza MDReport Verified Date/Time: 06/19/2021 10:23:27 Reading Location: [address] Body Reading Room POCT-GLUCOSE METER 2021-06-19 10:03:58 Test Item Value Reference Range Interpretation Comments POC-GLUCOSE METER 104 mg/dL 70-110 : TESTED A T [facility] 6720 (BEAKER) (test code = BREEZY Moss [facility], 1538) [id number]: Sustainability Specialist/Techni salma ID = [id number] for Sa ntiago (contract), Cry stal BLOOD [id number] 09:53:46 Test Item Value Reference Interpretation Comments Range CULTURE (iVideosongsAKER) METHICILLIN A From [employer] (test code = 1095) RESISTANT Bottle On ly STAPHYLOCOCCUS Methicillin AUREUS resistant Staphylococcus aureus Clindamycin (test R code = 10) Daptomycin (test code S = 59) Erythromycin (test R code = 4) Linezolid (test code S = 40) Nitrofurantoin (test S code = 23) Oxacillin (test code R = 14) Rifampin (test code = S 43) Tetracycline (test R code = 2) Trimethoprim + S Sulfamethoxazole (test code = 47) Vancomycin (test code S = 13) Ceftaroline (test See_Comment S [Automate d code = 236) message] The system which generated this result transmit oziel reference range : Susceptible <=1 , Dose Dependent Susceptible >1 , Resistant . The reference range was not used to interpret this result as normal/abnormal . GRAM STAIN RESULT From aerobic ([facility]) (test code = bottle only: gram 1123) positive cocci in clusters The specimen volume collected for this blood culture was below the optimum (10 mL per bottle or 20 mL total). Use of lower volumes may adversely affect recovery and/or detection times of some organisms.POCT-GLUCOSE [id number] 08:39:00 Test Item Value Reference Range Interpretation Comments POC-GLUCOSE METER 113 mg/dL 70-110 H : TESTED A T [facility] 6720 (GVISP 1) (test code = [facility], [facility]8) 039[address]: Sustainability Specialist/Techni salma ID = [id number] for Sa ntiago (contract), Cry stal POCT-GLUCOSE [id number] 07:00:47 Test Item Value Reference Range Interpretation Comments POC-GLUCOSE METER 143 mg/dL 70-110 H : TESTED A T [facility] 6720 (GVISP 1) (test code = [facility], 1538) 45592: Sustainability Specialist/Techni salma ID = [id number] for Ro tich (contract), Markel lla POCT-GLUCOSE [id number] 06:28:44 Test Item Value Reference Range Interpretation Comments POC-GLUCOSE METER 162 mg/dL 70-110 H : TESTED A T [facility] 6720 (GVISP 1) (test code = [facility], 1538) 26096: Sustainability Specialist/Techni salma ID = [id number] for Ro tich (contract), Markel lla [id number] 06:06:15 Test Item Value Reference Range Interpretation Comments PARTIAL THROMBOPLASTIN TIME 97.9 seconds 22.5-36.0 H ([facility]) (test code = 760) HEPATIC FUNCTION [id number] 05:48:59 Test Item Value Reference Range Interpretation Comments TOTAL PROTEIN ([facility] (test code = 5.1 gm/dL 6.0-8.3 L 770) ALBUMIN (BEAKER) (test code = 1145) 2.4 g/dL 3.5-5.0 L BILIRUBIN TOTAL (BEAKER) (test code 0.4 mg/dL 0.2-1.2 = 377) BILIRUBIN DIRECT (BEAKER) (test 0.2 mg/dL 0.1-0.5 code = 706) ALKALINE PHOSPHATASE (BEAKER) (test 61 U/L 40-150 code = 346) AST (SGOT) (BEAKER) (test code = 23 U/L 5-34 353) ALT (SGPT) (BEAKER) (test code = 23 U/L 6-55 347) Sustainability Specialist ID - CHRSIRENÉ [id number] 05:48:58 Test Item Value Reference Range Interpretation Comments MAGNESIUM (BEAKER) (test code = 2.1 mg/dL 1.6-2.6 627) Sustainability Specialist ID - CHRISRENÉ [id number] 05:48:58 Test Item Value Reference Range Interpretation Comments PHOSPHORUS (BEAKER) (test code = 3.2 mg/dL 2.3-4.7 604) Sustainability Specialist ID - CHRISRENÉ LBASIC METABOLIC [id number] 05:48:57 Test Item Value Reference Range Interpretation Comments SODIUM (BEAKER) 144 meq/L 136-145 (test code = 381) POTASSIUM (BEAKER) 3.3 meq/L 3.5-5.1 L (test code = 379) CHLORIDE (BEAKER) 118 meq/L 98-107 H (test code = 382) CO2 (BEAKER) (test 19 meq/L 22-29 L code = 355) BLOOD UREA NITROGEN 76 mg/dL 7-21 H (BEAKER) (test code = 354) CREATININE (BEAKER) 2.06 mg/dL 0.57-1.25 H (test code = 358) GLUCOSE RANDOM 272 mg/dL 70-105 H (BEAKER) (test code = 652) CALCIUM (BEAKER) 8.4 mg/dL 8.4-10.2 (test code = 697) EGFR (BEAKER) (test 32 mL/min/1.73 ESTIMA OZIEL GFR IS code = 1092) sq m NOT ACCURATE CREATININE CLEARANCE IN PREDICTING GLOMERULAR FILTRATION RATE . ESTIMATED GFR I S NOT APPLICABLE FOR DIALYSIS PATIEN TS. Sustainability Specialist ID - PIAYA LBLOOD GAS, [id number] 05:48:53 Test Item Value Reference Range Interpretation Comments PH ARTERIAL (BEAKER) (test code = 7.34 7.35-7.45 L 383) PCO2 ARTERIAL (BEAKER) (test code 34 mm Hg 35-45 L = 384) PO2 ARTERIAL (BEAKER) (test code 136 mm Hg 80-90 H = 385) O2 SATURATION ARTERIAL (BEAKER) 98.6 % 96.0-97.0 H (test code = 386) HCO3 ARTERIAL (BEAKER) (test code 18 mmol/L 21-29 L = 388) BASE EXCESS ARTERIAL (BEAKER) -7.0 mmol/L -2.0-3.0 L (test code = 387) PATIENT TEMPERATURE (BEAKER) 37.5 (test code = 1818) FIO2 (BEAKER) (test code = 1819) 21.0 CBC W/PLT COUNT & AUTO [id number] 05:46:25 Test Item Value Reference Range Interpretation Comments WHITE BLOOD CELL COUNT (BEAKER) 9.8 K/ L 3.5-10.5 (test code = 775) RED BLOOD CELL COUNT (BEAKER) 3.59 M/ L 4.63-6.08 L (test code = 761) HEMOGLOBIN (BEAKER) (test code = 9.8 GM/DL 13.7-17.5 L 410) HEMATOCRIT (BEAKER) (test code = 31.8 % 40.1-51.0 L 411) MEAN CORPUSCULAR VOLUME (BEAKER) 88.6 fL 79.0-92.2 (test code = 753) MEAN CORPUSCULAR HEMOGLOBIN 27.3 pg 25.7-32.2 (BEAKER) (test code = 751) MEAN CORPUSCULAR HEMOGLOBIN CONC 30.8 GM/DL 32.3-36.5 L (BEAKER) (test code = 752) RED CELL DISTRIBUTION WIDTH 15.9 % 11.6-14.4 H (BEAKER) (test code = 412) PLATELET COUNT (BEAKER) (test 156 K/CU MM 150-450 code = 756) MEAN PLATELET VOLUME (BEAKER) 12.7 fL 9.4-12.4 H (test code = 754) NUCLEATED RED BLOOD CELLS 0 /100 WBC 0-0 (BEAKER) (test code = 413) NEUTROPHILS RELATIVE PERCENT 89 % (BEAKER) (test code = 429) LYMPHOCYTES RELATIVE PERCENT 7 % (BEAKER) (test code = 430) MONOCYTES RELATIVE PERCENT 4 % (BEAKER) (test code = 431) EOSINOPHILS RELATIVE PERCENT 0 % (BEAKER) (test code = 432) BASOPHILS RELATIVE PERCENT 0 % (BEAKER) (test code = 437) NEUTROPHILS ABSOLUTE COUNT 8.68 K/ L 1.78-5.38 H (BEAKER) (test code = 670) LYMPHOCYTES ABSOLUTE COUNT 0.64 K/ L 1.32-3.57 L (BEAKER) (test code = 414) MONOCYTES ABSOLUTE COUNT (BEAKER) 0.42 K/ L 0.30-0.82 (test code = 415) EOSINOPHILS ABSOLUTE COUNT 0.00 K/ L 0.04-0.54 L (BEAKER) (test code = 416) BASOPHILS ABSOLUTE COUNT (BEAKER) 0.00 K/ L 0.01-0.08 L (test code = 417) IMMATURE GRANULOCYTES-RELATIVE 1 % 0-1 PERCENT (BEAKER) (test code = 2801) POCT-GLUCOSE [id number] 05:06:32 Test Item Value Reference Range Interpretation Comments POC-GLUCOSE METER 237 mg/dL 70-110 H : TESTED A T [facility] 6720 (BEAKER) (test code = [facility], 1538) 59929: Sustainability Specialist/Techni salma ID = [id number] for Ro tich (contract), Markel lla POCT-GLUCOSE [id number] 04:10:59 Test Item Value Reference Range Interpretation Comments POC-GLUCOSE METER 234 mg/dL 70-110 H : TESTED A T [facility] 6720 (BEAKER) (test code = [facility], 1538) 74375: Sustainability Specialist/Techni salma ID = [id number] for Ro tich (contract), Markel lla POCT-GLUCOSE [id number] 03:21:53 Test Item Value Reference Range Interpretation Comments POC-GLUCOSE METER 200 mg/dL 70-110 H : TESTED A T [facility] 6720 (BEAKER) (test code = [facility], 1538) 54357: Sustainability Specialist/Techni salma ID = [id number] for Ro tich (contract), Markel lla POCT-GLUCOSE [id number] 02:22:45 Test Item Value Reference Range Interpretation Comments POC-GLUCOSE METER 237 mg/dL 70-110 H : TESTED A T [facility] 6720 (BEAKER) (test code = [facility], 1538) 56860: Sustainability Specialist/Techni salma ID = [id number] for Ro ianh (contract), Markel lla POCT-GLUCOSE [id number] 00:48:29 Test Item Value Reference Range Interpretation Comments POC-GLUCOSE METER 207 mg/dL 70-110 H : TESTED A T [facility] 6720 (BEAKER) (test code = [facility], 1538) 78895: Sustainability Specialist/Techni salma ID = [id number] for Ro tich (contract), Markel lla BASIC METABOLIC [id number] 23:59:41 Test Item Value Reference Range Interpretation Comments SODIUM (BEAKER) 146 meq/L 136-145 H (test code = 381) POTASSIUM (BEAKER) 3.6 meq/L 3.5-5.1 (test code = 379) CHLORIDE (BEAKER) 119 meq/L 98-107 H (test code = 382) CO2 (BEAKER) (test 19 meq/L 22-29 L code = 355) BLOOD UREA NITROGEN 78 mg/dL 7-21 H (BEAKER) (test code = 354) CREATININE (BEAKER) 2.27 mg/dL 0.57-1.25 H (test code = 358) GLUCOSE RANDOM 250 mg/dL 70-105 H (BEAKER) (test code = 652) CALCIUM (BEAKER) 8.5 mg/dL 8.4-10.2 (test code = 697) EGFR (BEAKER) (test 29 mL/min/1.73 ESTIMA OZIEL GFR IS code = 1092) sq m NOT ACCURATE CREATININE CLEARANCE IN PREDICTING GLOMERULAR FILTRATION RATE . ESTIMATED GFR I S NOT APPLICABLE FOR DIALYSIS PATIEN TS. Sustainability Specialist ID - DBPOCT-GLUCOSE [id number] 23:43:41 Test Item Value Reference Range Interpretation Comments POC-GLUCOSE METER 180 mg/dL 70-110 H : TESTED A T [facility] 6720 (BEAKER) (test code = [facility], 1538) 30145: Sustainability Specialist/Techni salma ID = [id number] for Ro tich (contract), Markel lla POCT-GLUCOSE [id number] 22:26:38 Test Item Value Reference Range Interpretation Comments POC-GLUCOSE METER 219 mg/dL 70-110 H : TESTED A T [facility] 6720 (BEAKER) (test code = [facility], 1538) 64094: Sustainability Specialist/Techni salma ID = [id number] for Bailey melendez (contract), Markel lla POCT-GLUCOSE [id number] 21:24:32 Test Item Value Reference Range Interpretation Comments POC-GLUCOSE METER 253 mg/dL 70-110 H : TESTED A T [facility] 6720 (BEAKER) (test code = [facility], 1538) 45044: Sustainability Specialist/Techni salma ID = [id number] for Bailey melendez (contract), Markel lla POCT-GLUCOSE [id number] 20:26:54 Test Item Value Reference Range Interpretation Comments POC-GLUCOSE METER 282 mg/dL 70-110 H : TESTED A T [facility] 6720 (BEAKER) (test code = [facility], 1538) 07039: Sustainability Specialist/Techni salma ID = [id number] for Bailey melendez (contract), Markel lla [id number] 18:36:20 Test Item Value Reference Range Interpretation Comments GLUCOSE RANDOM (BEAKER) (test code 427 mg/dL 70-105 HH = 652) Sustainability Specialist ID - CHRISRENÉ LBASIC METABOLIC [id number] 18:35:59 Test Item Value Reference Range Interpretation Comments SODIUM (BEAKER) 150 meq/L 136-145 H (test code = 381) POTASSIUM (BEAKER) 3.8 meq/L 3.5-5.1 Specimen slightly (test code = 379) hemolyzed CHLORIDE (BEAKER) 121 meq/L 98-107 H (test code = 382) CO2 (BEAKER) (test 21 meq/L 22-29 L code = 355) BLOOD UREA NITROGEN 74 mg/dL 7-21 H (BEAKER) (test code = 354) CREATININE (BEAKER) 2.42 mg/dL 0.57-1.25 H Specimen slightly (test code = 358) hemolyzed GLUCOSE RANDOM 430 mg/dL 70-105 HH (BEAKER) (test code = 652) CALCIUM (BEAKER) 8.3 mg/dL 8.4-10.2 L (test code = 697) EGFR (BEAKER) (test 26 mL/min/1.73 ESTIMA OZIEL GFR IS code = 1092) sq m NOT ACCURATE CREATININE CLEARANCE IN PREDICTING GLOMERULAR FILTRATION RATE . ESTIMATED GFR I S NOT APPLICABLE FOR DIALYSIS PATIEN TS. Sustainability Specialist ID Cory SEGOVIA LHEPATIC FUNCTION [id number] 18:16:23 Test Item Value Reference Range Interpretation Comments TOTAL PROTEIN (BEAKER) 5.0 gm/dL 6.0-8.3 L Speci men slightly (test code = 770) hemolyzed ALBUMIN (BEAKER) (test 2.4 g/dL 3.5-5.0 L Speci men slightly code = 1145) hemolyzed BILIRUBIN TOTAL 0.4 mg/dL 0.2-1.2 Specimen sli ghtly (BEAKER) (test code = hemoly zed 377) BILIRUBIN DIRECT 0.2 mg/dL 0.1-0.5 Specimen sl ightly (BEAKER) (test code = hemoly zed 706) ALKALINE PHOSPHATASE 59 U/L 40-150 (BEAKER) (test code = 346) AST (SGOT) (BEAKER) 25 U/L 5-34 Specimen slightly (test code = 353) hemolyzed ALT (SGPT) (BEAKER) 22 U/L 6-55 Specimen slightly (test code = 347) hemolyzed Sustainability Specialist ID Cory SEGOVIA [id number] 18:04:40 Test Item Value Reference Range Interpretation Comments PARTIAL THROMBOPLASTIN TIME 28.4 seconds 22.5-36.0 (BEAKER) (test code = 760) CBC (HEMOGRAM ONLY)[id number] 17:51:45 Test Item Value Reference Range Interpretation Comments WHITE BLOOD CELL COUNT (BEAKER) 11.8 K/ L 3.5-10.5 H (test code = 775) RED BLOOD CELL COUNT (BEAKER) 3.23 M/ L 4.63-6.08 L (test code = 761) HEMOGLOBIN (BEAKER) (test code = 8.8 GM/DL 13.7-17.5 L 410) HEMATOCRIT (BEAKER) (test code = 28.8 % 40.1-51.0 L 411) MEAN CORPUSCULAR VOLUME (BEAKER) 89.2 fL 79.0-92.2 (test code = 753) MEAN CORPUSCULAR HEMOGLOBIN 27.2 pg 25.7-32.2 (BEAKER) (test code = 751) MEAN CORPUSCULAR HEMOGLOBIN CONC 30.6 GM/DL 32.3-36.5 L (BEAKER) (test code = 752) RED CELL DISTRIBUTION WIDTH 16.1 % 11.6-14.4 H (BEAKER) (test code = 412) PLATELET COUNT (BEAKER) (test 192 K/CU MM 150-450 code = 756) MEAN PLATELET VOLUME (BEAKER) 12.4 fL 9.4-12.4 (test code = 754) NUCLEATED RED BLOOD CELLS 0 /100 WBC 0-0 (BEAKER) (test code = 413) POCT-GLUCOSE [id number] 16:31:09 Test Item Value Reference Range Interpretation Comments POC-GLUCOSE METER 338 mg/dL 70-110 H : TESTED A T [facility] 6720 (BEAKER) (test code = [facility], 1538) 30335: Sustainability Specialist/Techni salma ID = [id number] for Mallory hn (contract), Jea nne POCT-GLUCOSE [id number] 12:15:57 Test Item Value Reference Range Interpretation Comments POC-GLUCOSE METER 329 mg/dL 70-110 H : TESTED A T [facility] 6720 (BEAKER) (test code = [facility], 1538) 34679: Sustainability Specialist/Techni salma ID = [id number] for Mallory hn (contract), Jea nne POCT-GLUCOSE [id number] 07:09:34 Test Item Value Reference Range Interpretation Comments POC-GLUCOSE METER 296 mg/dL 70-110 H : TESTED A T [facility] 6720 (BEAKER) (test code = [facility], 1538) 46069: Sustainability Specialist/Techni salma ID = [id number] for SAROJ HENDRICKS BLOOD GAS, [id number] 07:01:05 Test Item Value Reference Range Interpretation Comments PH VENOUS (BEAKER) (test code = 7.36 7.32-7.42 701) PCO2 VENOUS (BEAKER) (test code = 36 mm Hg 41-51 L 755) PO2 VENOUS (BEAKER) (test code = 95 mm Hg 25-40 H 702) O2 SATURATION VENOUS (BEAKER) 97.0 % 40.0-70.0 H (test code = 703) HCO3 VENOUS (BEAKER) (test code = 20 mmol/L 21-29 L 705) BASE EXCESS VENOUS (BEAKER) (test -5.0 mmol/L -2.0-3.0 L code = 704) PATIENT TEMPERATURE (BEAKER) 37.1 (test code = 1818) FIO2 (BEAKER) (test code = 1819) 32.0 BASIC METABOLIC [id number] 04:43:52 Test Item Value Reference Range Interpretation Comments SODIUM (BEAKER) 150 meq/L 136-145 H (test code = 381) POTASSIUM (BEAKER) 3.5 meq/L 3.5-5.1 (test code = 379) CHLORIDE (BEAKER) 124 meq/L 98-107 H (test code = 382) CO2 (BEAKER) (test 17 meq/L 22-29 L code = 355) BLOOD UREA NITROGEN 75 mg/dL 7-21 H (BEAKER) (test code = 354) CREATININE (BEAKER) 2.36 mg/dL 0.57-1.25 H (test code = 358) GLUCOSE RANDOM 358 mg/dL 70-105 H (BEAKER) (test code = 652) CALCIUM (BEAKER) 8.8 mg/dL 8.4-10.2 (test code = 697) EGFR (BEAKER) (test 27 mL/min/1.73 ESTIMA OZIEL GFR IS code = 1092) sq m NOT ACCURATE CREATININE CLEARANCE IN PREDICTING GLOMERULAR FILTRATION RATE . ESTIMATED GFR I S NOT APPLICABLE FOR DIALYSIS PATIEN TS. Sustainability Specialist ID - [id number] 04:42:35 Test Item Value Reference Range Interpretation Comments MAGNESIUM (BEAKER) (test code = 2.4 mg/dL 1.6-2.6 627) Sustainability Specialist ID - [id number] 04:42:35 Test Item Value Reference Range Interpretation Comments PHOSPHORUS (BEAKER) (test code = 4.4 mg/dL 2.3-4.7 604) Sustainability Specialist ID - [id number] W/PLT COUNT & AUTO [id number] 04:02:19 Test Item Value Reference Range Interpretation Comments WHITE BLOOD CELL COUNT (BEAKER) 11.2 K/ L 3.5-10.5 H (test code = 775) RED BLOOD CELL COUNT (BEAKER) 4.00 M/ L 4.63-6.08 L (test code = 761) HEMOGLOBIN (BEAKER) (test code = 11.0 GM/DL 13.7-17.5 L 410) HEMATOCRIT (BEAKER) (test code = 35.3 % 40.1-51.0 L 411) MEAN CORPUSCULAR VOLUME (BEAKER) 88.3 fL 79.0-92.2 (test code = 753) MEAN CORPUSCULAR HEMOGLOBIN 27.5 pg 25.7-32.2 (BEAKER) (test code = 751) MEAN CORPUSCULAR HEMOGLOBIN CONC 31.2 GM/DL 32.3-36.5 L (BEAKER) (test code = 752) RED CELL DISTRIBUTION WIDTH 16.1 % 11.6-14.4 H (BEAKER) (test code = 412) PLATELET COUNT (BEAKER) (test 195 K/CU MM 150-450 code = 756) MEAN PLATELET VOLUME (BEAKER) 12.0 fL 9.4-12.4 (test code = 754) NUCLEATED RED BLOOD CELLS 0 /100 WBC 0-0 (BEAKER) (test code = 413) NEUTROPHILS RELATIVE PERCENT 88 % (BEAKER) (test code = 429) LYMPHOCYTES RELATIVE PERCENT 6 % (BEAKER) (test code = 430) MONOCYTES RELATIVE PERCENT 6 % (BEAKER) (test code = 431) EOSINOPHILS RELATIVE PERCENT 0 % (BEAKER) (test code = 432) BASOPHILS RELATIVE PERCENT 0 % (BEAKER) (test code = 437) NEUTROPHILS ABSOLUTE COUNT 9.83 K/ L 1.78-5.38 H (BEAKER) (test code = 670) LYMPHOCYTES ABSOLUTE COUNT 0.63 K/ L 1.32-3.57 L (BEAKER) (test code = 414) MONOCYTES ABSOLUTE COUNT (BEAKER) 0.67 K/ L 0.30-0.82 (test code = 415) EOSINOPHILS ABSOLUTE COUNT 0.00 K/ L 0.04-0.54 L (BEAKER) (test code = 416) BASOPHILS ABSOLUTE COUNT (BEAKER) 0.01 K/ L 0.01-0.08 (test code = 417) IMMATURE GRANULOCYTES-RELATIVE 1 % 0-1 PERCENT (BEAKER) (test code = 2801) CT, [id number] 02:23:00Unlisted Reason for Exam - Click Yes and Enter Reason Below->YesUnlisted Reason for Exam->intraabdominal source of persistent mrsa bacteremiaIs this for enterography?->NoWill this procedure require oral contrast?->No [facility] 1950 Sex: MFINAL REPORT EXAM/TECHNIQUE: CT chest without IV contrast. CT of the abdomen and pelvis without contrast. Dose modulation, iterative reconstruction, and/or weight based adjustment ofthe mA/kV was utilized to reduce the radiation dose to as low as reasonably achievable. INDICATION: Chest pain, shortness of breath. COMPARISON: None. FINDINGS: CHEST Lower Neck: Unremarkable. Parenchym a/Pleura: Hazy scattered patchy areas of groundglass opacities and consolidation are present throughout the lungs. Airways: Gastric tube is present. Cardiac: The heart is normal in size. No pericardialeffusion. Mediastinum/lymph nodes: No lymphadenopathy. Vessels: Unremarkable. Osseous: No acute osseous process. No suspicious osseous lesion. BODY Liver: The main portal vein is patent. No focal mass.Biliary: The gallbladder and intrahepatic and extrahepatic biliary systems are unremarkable. Spleen:Unremarkable. Pancreas: Unremarkable. Adrenals: Unremarkable. Kidneys: No hydronephrosis. Vascular calcifications are present. Bilateral renal cysts are present with left renal lower pole exophytic cyst demonstrating a calcified rim. Bowel: Normal appearance of the colon. Appendix is normal in appearance. The small bowel and stomach are normal in appearance without findings of obstruction. Lymph nodes: No lymphadenopathy by size criteria. Mesentery: No ascites. No pneumoperitoneum. Pelvis: Unremarkable appearance of the prostate and seminal vesicles. The bladder is unremarkable in appearance. Vessels: Calcific atherosclerosis of the aorta and branch vessels without aneurysmal dilatation. Osseous: No acute osseous process. No suspicious osseous lesions. Impression: 1. Hazy groundglass opacities and consolidation in the lungs may represent infection, though recommend repeat radiography after symptoms have resolved to ensure resolution. 2. No acute process in the abdomen or pelvis on this noncontrast exam. 3. Bilateral renal cysts with a left renal lower pole cyst demonstrating peripheral calcifications. Consider nonemergent renal mass protocol MRI or CT. Signed: Joe López [facility] Verified Date/Time: 06/18/2021 02:23:26 CT, CHEST, WITHOUT [id number] 02:23:00Unlisted Reason for Exam - Click Yes and Enter Reason Below->YesUnlisted Reason for Exam->pneumonia, pulm edema, septic emboli, lung abscess, empyema [facility] 1950 Sex: MFINAL REPORT EXAM/TECHNIQUE: CT chest without IV contrast. CT of the abdomen and pelvis without contrast. Dose modulation, iterative reconstruction, and/or weight based adjustment ofthe mA/kV was utilized to reduce the radiation dose to as low as reasonably achievable. INDICATION: Chest pain, shortness of breath. COMPARISON: None. FINDINGS: CHEST Lower Neck: Unremarkable. Parenchym a/Pleura: Hazy scattered patchy areas of groundglass opacities and consolidation are present throughout the lungs. Airways: Gastric tube is present. Cardiac: The heart is normal in size. No pericardialeffusion. Mediastinum/lymph nodes: No lymphadenopathy. Vessels: Unremarkable. Osseous: No acute osseous process. No suspicious osseous lesion. BODY Liver: The main portal vein is patent. No focal mass.Biliary: The gallbladder and intrahepatic and extrahepatic biliary systems are unremarkable. Spleen:Unremarkable. Pancreas: Unremarkable. Adrenals: Unremarkable. Kidneys: No hydronephrosis. Vascular calcifications are present. Bilateral renal cysts are present with left renal lower pole exophytic cyst demonstrating a calcified rim. Bowel: Normal appearance of the colon. Appendix is normal in appearance. The small bowel and stomach are normal in appearance without findings of obstruction. Lymph nodes: No lymphadenopathy by size criteria. Mesentery: No ascites. No pneumoperitoneum. Pelvis: Unremarkable appearance of the prostate and seminal vesicles. The bladder is unremarkable in appearance. Vessels: Calcific atherosclerosis of the aorta and branch vessels without aneurysmal dilatation. Osseous: No acute osseous process. No suspicious osseous lesions. Impression: 1. Hazy groundglass opacities and consolidation in the lungs may represent infection, though recommend repeat radiography after symptoms have resolved to ensure resolution. 2. No acute process in the abdomen or pelvis on this noncontrast exam. 3. Bilateral renal cysts with a left renal lower pole cyst demonstrating peripheral calcifications. Consider nonemergent renal mass protocol MRI or CT. Signed: Joe López [facility] Verified Date/Time: 06/18/2021 02:23:26 CT, BRAIN, WITHOUT [id number] 02:15:00Unlisted Reason for Exam - Click Yes and Enter Reason Below->YesUnlisted Reason for Exam->stroke, septic emboli [facility] : 1950 Sex: MFINAL REPORT EXAM/TECHNIQUE: Noncontrast CT of the head. Dose modulation, iterative reconstruction, and/or weight based adjustment of the mA/kV was utilized to reduce the radiation dose to as low as reasonably achievable. INDICATION: Altered mental status, stroke, septic emboli. COMP ARISON: None. FINDINGS: Quinteros-white differentiation is preserved. No acute intracranial hemorrhage. No extra-axial fluid collection. Ventricles are normal in appearance. Basal cisterns are patent. No midline shift. Cerebellar tonsils are normal in appearance. Orbits are normal. Paranasal sinuses are clear. Mastoid air cells are clear. No acute osseous processes or suspicious osseous lesion. Midline structures are normal. Visualized face and neck are unremarkable. Impression: No acute intracranial process. Consider MRI for further evaluation. Signed: Joe L[facility]pez [facility] Verified Date/Time: 2021 02:15:33 POCT-GLUCOSE [id number] 23:09:56 Test Item Value Reference Range Interpretation Comments POC-GLUCOSE METER 262 mg/dL 70-110 H : TESTED A T [facility] 6720 (GVISP 1) (test code = [facility] Isa [facility], 1538) [id number]: Sustainability Specialist/Techni salma ID = [id number] for SAROJ HENDRICKS POCT-GLUCOSE [id number] 22:27:08 Test Item Value Reference Range Interpretation Comments POC-GLUCOSE METER 218 mg/dL 70-110 H : TESTED A T [facility] 6720 (BEAKER) (test code = [facility] Isa [facility], 1538) [id number]: Sustainability Specialist/Techni salma ID = [id number] for An dayanara (contract)Trang, ABDOMEN/KUB, 1 VIEW [id number] 20:14:00Reason for exam:->Feeding tube placementCON[facility]Name[facility] : 1950 Sex: MFINAL REPORT EXAM/TECHNIQUE: RAD, ABDOMEN/KUB, 1 VIEW AP INDICATION: Feeding tubeplacement. COMPARISON: 06/12/2021 FINDINGS: Feeding tube terminates in the stomach. Mild gaseous distention of the colon with the small bowel not well visualized. No acute osseous process. Calcified lesion projecting over the left lower quadrant is unchanged. Impression: Feeding tube terminates in the stomach. Signed: Joe López MDReport Verified Date/Time: 06/17/2021 20:14:55 Ferritin 2021-06-17 18:52:48 Test Item Value Reference Range Interpretation Comments Ferritin (test code = 469.45 ng/mL 5.00-275.00 H 2276-4) BANDAR (test code = BANDAR) Sustainability Specialist ID - DB Lab Interpretation (test Abnormal code = 23404-2) [facility]12 18:52:48 Test Item Value Reference Range Interpretation Comments FERRITIN (BEAKER) (test code = 469.45 ng/mL 5.00-275.00 H 361) Sustainability Specialist ID - DBHIGH SENSITIVITY TROPONIN [id number] 18:43:48 Test Item Value Reference Range Interpretation Comments HIGH SENSITIVITY 522 pg/ml See_Comment HH [Automated message] TROPONIN I (test code The sy stem which = [id number]) generated this result transmitted ref erence range: <=35. Th e reference range was not used to int erpret this result as normal/abnormal . Sustainability Specialist ID - DBThe BROWNFIELD PROGRAM COORDINATOR STAT High Sensitivity Troponin-I results should be used in conjunctionwith other diagnostic information such as ECG, clinical observations and information, and patient symptoms to aid in the diagnosis of SC.B-type Natriuretic Factor (BNP)2021-06-17 18:38:24 Test Item Value Reference Range Interpretation Comments BNP (test code = 41115-8) 849 pg/mL 0-100 H BANDAR (test code = BANDAR) Sustainability Specialist ID - DB Lab Interpretation (test Abnormal code = 87890-9) [facility]2021-06-17 18:38:24 Test Item Value Reference Range Interpretation Comments B-TYPE NATRIURETIC PEPTIDE (BEAKER) 849 pg/mL 0-100 H (test code = 700) Sustainability Specialist ID - DBIron, TIBC, % sat. (without ferritin)2021-06-17 18:31:42 Test Item Value Reference Range Interpretation Comments Iron (test code = 2498-4) 48.0 ug/dL 40.0-160.0 TIBC (test code = 2500-7) 154 ug/dL 250-450 L Iron % Saturation (test code 31 % 20-55 = 2502-3) BANDAR (test code = BANDAR) Sustainability Specialist ID - DB Lab Interpretation (test Abnormal code = 84087-5) [facility], [facility]BC, % SAT. (WITHOUT FERRITIN)2021-06-17 18:31:42 Test Item Value Reference Range Interpretation Comments IRON (BEAKER) (test code = 547) 48.0 ug/dL 40.0-160.0 TOTAL IRON BINDING CAPACITY 154 ug/dL 250-450 L (BEAKER) (test code = 769) IRON % SATURATION (2) (BEAKER) 31 % 20-55 (test code = 2590) Sustainability Specialist ID - DBLACTATE DEHYDROGENASE (LDH)2021-06-17 18:29:42 Test Item Value Reference Range Interpretation Comments LACTATE DEHYDROGENASE (BEAKER) (test 409 U/L 125-220 H code = 635) Sustainability Specialist ID - DBBLOOD GAS, [id number] 18:14:17 Test Item Value Reference Range Interpretation Comments PH ARTERIAL (BEAKER) (test code = 7.49 7.35-7.45 H 383) PCO2 ARTERIAL (BEAKER) (test code 23 mm Hg 35-45 L = 384) PO2 ARTERIAL (BEAKER) (test code 135 mm Hg 80-90 H = 385) O2 SATURATION ARTERIAL (BEAKER) 99.0 % 96.0-97.0 H (test code = 386) HCO3 ARTERIAL (BEAKER) (test code 18 mmol/L 21-29 L = 388) BASE EXCESS ARTERIAL (BEAKER) -4.3 mmol/L -2.0-3.0 L (test code = 387) PATIENT TEMPERATURE (BEAKER) 36.4 (test code = 1818) FIO2 (BEAKER) (test code = 1819) 21.0 [id number] 18:04:00 Test Item Value Reference Range Interpretation Comments PARTIAL THROMBOPLASTIN TIME 26.3 seconds 22.5-36.0 (BEAKER) (test code = 760) PROTHROMBIN [id number] 18:03:21 Test Item Value Reference Range Interpretation Comments PROTIME (BEAKER) 15.5 seconds 11.9-14.2 H (test code = 759) INR (BEAKER) (test 1.25 See_Comment [Automat ed message] code = 370) The system Mobi generated this result transmitted ref erence range: <=5.90. The reference range was not used to int erpret this result as normal/abnormal . RECOMMENDED COUMADIN/WARFARIN INR THERAPY RANGESSTANDARD DOSE: 2.0 - 3.0 Includes: PROPHYLAXIS for venous thrombosis, systemic embolization; TREATMENT for venous thrombosis and/or pulmonary embolus.HIGH RISK: Target INR is 2.5-3.5 for patients with mechanical heart valves.CBC (HEMOGRAM ONLY)2021-06-17 17:57:21 Test Item Value Reference Range Interpretation Comments WHITE BLOOD CELL COUNT (BEAKER) 12.7 K/ L 3.5-10.5 H (test code = 775) RED BLOOD CELL COUNT (BEAKER) 4.01 M/ L 4.63-6.08 L (test code = 761) HEMOGLOBIN (BEAKER) (test code = 11.2 GM/DL 13.7-17.5 L 410) HEMATOCRIT (BEAKER) (test code = 34.1 % 40.1-51.0 L 411) MEAN CORPUSCULAR VOLUME (BEAKER) 85.0 fL 79.0-92.2 (test code = 753) MEAN CORPUSCULAR HEMOGLOBIN 27.9 pg 25.7-32.2 (BEAKER) (test code = 751) MEAN CORPUSCULAR HEMOGLOBIN CONC 32.8 GM/DL 32.3-36.5 (BEAKER) (test code = 752) RED CELL DISTRIBUTION WIDTH 15.9 % 11.6-14.4 H (BEAKER) (test code = 412) PLATELET COUNT (BEAKER) (test 197 K/CU MM 150-450 code = 756) MEAN PLATELET VOLUME (BEAKER) 12.6 fL 9.4-12.4 H (test code = 754) NUCLEATED RED BLOOD CELLS 0 /100 WBC 0-0 (BEAKER) (test code = 413) POCT-GLUCOSE [id number] 17:50:54 Test Item Value Reference Range Interpretation Comments POC-GLUCOSE METER 150 mg/dL 70-110 H : TESTED A T [facility] 6720 (BEAKER) (test code = [place], 1538) [address]: Sustainability Specialist/Techni salma ID = [id number] for Rajni medrano Poonam BASIC METABOLIC [id number] 17:01:36 Test Item Value Reference Range Interpretation Comments SODIUM (BEAKER) 157 meq/L 136-145 H (test code = 381) POTASSIUM (BEAKER) 3.6 meq/L 3.5-5.1 Specimen slightly (test code = 379) hemolyzed CHLORIDE (BEAKER) 127 meq/L 98-107 H (test code = 382) CO2 (BEAKER) (test 21 meq/L 22-29 L code = 355) BLOOD UREA NITROGEN 65 mg/dL 7-21 H (BEAKER) (test code = 354) CREATININE (BEAKER) 2.08 mg/dL 0.57-1.25 H Specimen slightly (test code = 358) hemolyzed GLUCOSE RANDOM 130 mg/dL 70-105 H (BEAKER) (test code = 652) CALCIUM (BEAKER) 9.2 mg/dL 8.4-10.2 (test code = 697) EGFR (BEAKER) (test 32 mL/min/1.73 ESTIMA OZIEL GFR IS code = 1092) sq m NOT ACCURATE CREATININE CLEARANCE IN PREDICTING GLOMERULAR FILTRATION RATE . ESTIMATED GFR I S NOT APPLICABLE FOR DIALYSIS PATIEN TS. Sustainability Specialist ID - [id number] 16:58:48 Test Item Value Reference Range Interpretation Comments PHOSPHORUS (BEAKER) 3.7 mg/dL 2.3-4.7 Specimen slightly (test code = 604) hemolyzed Sustainability Specialist ID - [id number] 16:58:47 Test Item Value Reference Range Interpretation Comments MAGNESIUM (BEAKER) 2.2 mg/dL 1.6-2.6 Specimen slightly (test code = 627) hemolyzed Sustainability Specialist ID - DBPOCT-GLUCOSE [id number] 16:08:55 Test Item Value Reference Range Interpretation Comments POC-GLUCOSE METER 116 mg/dL 70-110 H : TESTED A T [facility] 6720 (BEAKER) (test code = [place], 1538) [address]: Sustainability Specialist/Techni salma ID = [id number] for Mallory colby (contract), Aurelio nne RAD, CHEST, 1 VIEW, NON [id number] 13:49:00Reason for exam:- >tachypneaShould this be performed at the bedside?->Yes [facility] : 1950 Sex: MFINAL REPORT RAD, CHEST, 1 VIEW, NON DEPT TECHNIQUE: Frontal view(s) of the chest. INDICATION: tachypnea COMPARISON: 06/14/2021 FINDINGS/IMPRESSION: Lines/Tubes: None Lungs/pleura: Small right basilar opacity, probably atelectatic, slightly improved from 06/14/2021. Diffuse mild hazy opacification throughout the left lung may be artifactual from suboptimal technique. Asymmetric elevation of right hemidiaphragm. No pleural effusion. No pneumothorax. Heart and Mediastinum: Unremarkable for technique. Soft Tissues and Bones: Sternotomy wires. Signed: Calvin Lopez Verified Date/Time: 06/17/2021 13:49:59 Reading Location: [address] Ortho Consult Reading Room POCT- GLUCOSE [id number] 11:29:30 Test Item Value Reference Range Interpretation Comments POC-GLUCOSE METER 119 mg/dL 70-110 H : TESTED A T [facility] 6720 (BEAKER) (test code = [facility], 1538) [address]: Sustainability Specialist/Techni salma ID = [id number] for Mallory hn (contract), Jea nne POCT-GLUCOSE [id number] 09:41:06 Test Item Value Reference Range Interpretation Comments POC-GLUCOSE METER 114 mg/dL 70-110 H : TESTED A T [facility] 6720 (BEAKER) (test code = [facility], 1538) [address]: Sustainability Specialist/Techni salma ID = [id number] for Mallory hn (contract), Jea nne POCT-GLUCOSE [id number] 08:56:08 Test Item Value Reference Range Interpretation Comments POC-GLUCOSE METER 70 mg/dL 70-110 : TESTED A T [facility] 6720 (BEAKER) (test code = [facility], 1538) [address]: Sustainability Specialist/Techni salma ID = [id number] for Carrasquillo (contract), Jea nne HEPATIC FUNCTION [id number] 04:51:36 Test Item Value Reference Range Interpretation Comments TOTAL PROTEIN (BEAKER) (test code = 5.8 gm/dL 6.0-8.3 L 770) ALBUMIN (BEAKER) (test code = 1145) 2.8 g/dL 3.5-5.0 L BILIRUBIN TOTAL (BEAKER) (test code 0.5 mg/dL 0.2-1.2 = 377) BILIRUBIN DIRECT (BEAKER) (test 0.3 mg/dL 0.1-0.5 code = 706) ALKALINE PHOSPHATASE (BEAKER) (test 72 U/L 40-150 code = 346) AST (SGOT) (BEAKER) (test code = 30 U/L 5-34 353) ALT (SGPT) (BEAKER) (test code = 26 U/L 6-55 347) Sustainability Specialist ID - JAKE MBLOOD GAS, [id number] 04:39:15 Test Item Value Reference Range Interpretation Comments PH ARTERIAL (BEAKER) (test code = 7.50 7.35-7.45 H 383) PCO2 ARTERIAL (BEAKER) (test code 25 mm Hg 35-45 L = 384) PO2 ARTERIAL (BEAKER) (test code 81 mm Hg 80-90 = 385) O2 SATURATION ARTERIAL (BEAKER) 96.6 % 96.0-97.0 (test code = 386) HCO3 ARTERIAL (BEAKER) (test code 19 mmol/L 21-29 L = 388) BASE EXCESS ARTERIAL (BEAKER) -2.7 mmol/L -2.0-3.0 L (test code = 387) PATIENT TEMPERATURE (BEAKER) 37.8 (test code = 1818) FIO2 (BEAKER) (test code = 1819) 21.0 POCT-GLUCOSE [id number] 04:32:46 Test Item Value Reference Range Interpretation Comments POC-GLUCOSE METER 137 mg/dL 70-110 H : Notified RN/MD: (BEAKER) (test code = TESTED AT [facility] 5216 6772) [facility], [address]: Sustainability Specialist/Techni salma ID = [id number] for Luis doan (contract), [place] nda BASIC METABOLIC [id number] 03:40:36 Test Item Value Reference Range Interpretation Comments SODIUM (BEAKER) 152 meq/L 136-145 H (test code = 381) POTASSIUM (BEAKER) 3.4 meq/L 3.5-5.1 L (test code = 379) CHLORIDE (BEAKER) 124 meq/L 98-107 H (test code = 382) CO2 (BEAKER) (test 18 meq/L 22-29 L code = 355) BLOOD UREA NITROGEN 66 mg/dL 7-21 H (BEAKER) (test code = 354) CREATININE (BEAKER) 2.11 mg/dL 0.57-1.25 H (test code = 358) GLUCOSE RANDOM 225 mg/dL 70-105 H (BEAKER) (test code = 652) CALCIUM (BEAKER) 9.2 mg/dL 8.4-10.2 (test code = 697) EGFR (BEAKER) (test 31 mL/min/1.73 ESTIMA OZIEL GFR IS code = 1092) sq m NOT ACCURATE CREATININE CLEARANCE IN PREDICTING GLOMERULAR FILTRATION RATE . ESTIMATED GFR I S NOT APPLICABLE FOR DIALYSIS PATIEN TS. Sustainability Specialist ID - JAKE MBLOOD GAS, [id number] 03:02:54 Test Item Value Reference Range Interpretation Comments PH ARTERIAL (BEAKER) (test code 7.46 7.35-7.45 H = 383) PCO2 ARTERIAL (BEAKER) (test 17 mm Hg 35-45 LL code = 384) PO2 ARTERIAL (BEAKER) (test code 193 mm Hg 80-90 H = 385) O2 SATURATION ARTERIAL (BEAKER) 99.4 % 96.0-97.0 H (test code = 386) HCO3 ARTERIAL (BEAKER) (test 11 mmol/L 21-29 L code = 388) BASE EXCESS ARTERIAL (BEAKER) -10.6 mmol/L -2.0-3.0 L (test code = 387) PATIENT TEMPERATURE (BEAKER) 38.3 (test code = 1818) FIO2 (BEAKER) (test code = 1819) 21.0 POCT-GLUCOSE [id number] 22:37:33 Test Item Value Reference Range Interpretation Comments POC-GLUCOSE METER 300 mg/dL 70-110 H : Notified RN/MD: ([facility]) (test code = TESTED AT [facility] 6720 1537) [facility], [address]: Sustainability Specialist/Techni salma ID = [id number] for Luis doan (contract), [place] nda POCT-GLUCOSE [id number] 19:03:08 Test Item Value Reference Range Interpretation Comments POC-GLUCOSE METER 280 mg/dL 70-110 H : TESTED A T [facility] ([facility]) (test code = [facility], 153) [address]: Sustainability Specialist/Techni salma ID = [id number] for Mallory hn (contract), Aurelio nne POCT-GLUCOSE [id number] 12:58:47 Test Item Value Reference Range Interpretation Comments POC-GLUCOSE METER 214 mg/dL 70-110 H : TESTED A T [facility] ([facility]) (test code = [facility], 153) [address]: Sustainability Specialist/Techni salma ID = [id number] for Andrzej alvarez (contract), [place] BLOOD [id number] 08:16:58 Test Item Value Reference Range Interpretation Comments CULTURE A From Aerobic An d (AKER) (test Anaerobic Bot tles Same code = 1095) organism has be en isolated from cultures(s) of the same body site and collection date . Repeat identifi cation and susceptibil ity testing perform ed only after consultat ion with the [facility] microbiology laboratory.Refe r to previous cultur e ofMethicillin resistant Staphylococcus aureus GRAM STAIN From aerobic and RESULT (BEAKER) anaerobic (test code = bottles: gram 1123) positive cocci in clusters The specimen volume collected for this blood culture was below the optimum (10 mL per bottle or 20 mL total). Use of lower volumes may adversely affect recovery and/or detection times of some organisms.POCT-GLUCOSE [id number] 08:10:41 Test Item Value Reference Range Interpretation Comments POC-GLUCOSE METER 166 mg/dL 70-110 H : TESTED A T [facility] 6720 (BEAKER) (test code = [facility], 1538) [address]: Sustainability Specialist/Techni salma ID = [id number] for Osito karen (contract), Sam tin POCT-GLUCOSE [id number] 04:34:58 Test Item Value Reference Range Interpretation Comments POC-GLUCOSE METER 208 mg/dL 70-110 H : TESTED A T [facility] 6720 (BEAKER) (test code = [facility] [place] [facility], 1538) [address]: Sustainability Specialist/Techni salma ID = [id number] for Mayra cortez (contract), [place] BLOOD GAS, [id number] 04:30:13 Test Item Value Reference Range Interpretation Comments PH ARTERIAL (BEAKER) (test code = 7.44 7.35-7.45 383) PCO2 ARTERIAL (BEAKER) (test code 30 mm Hg 35-45 L = 384) PO2 ARTERIAL (BEAKER) (test code 82 mm Hg 80-90 = 385) O2 SATURATION ARTERIAL (BEAKER) 96.2 % 96.0-97.0 (test code = 386) HCO3 ARTERIAL (BEAKER) (test code 20 mmol/L 21-29 L = 388) BASE EXCESS ARTERIAL (BEAKER) -3.1 mmol/L -2.0-3.0 L (test code = 387) PATIENT TEMPERATURE (BEAKER) 37.9 (test code = 1818) FIO2 (BEAKER) (test code = 1819) 32.0 CBC W/PLT COUNT & AUTO [id number] 04:28:49 Test Item Value Reference Range Interpretation Comments WHITE BLOOD CELL COUNT (BEAKER) 14.6 K/ L 3.5-10.5 H (test code = 775) RED BLOOD CELL COUNT (BEAKER) 4.17 M/ L 4.63-6.08 L (test code = 761) HEMOGLOBIN (BEAKER) (test code = 11.6 GM/DL 13.7-17.5 L 410) HEMATOCRIT (BEAKER) (test code = 35.8 % 40.1-51.0 L 411) MEAN CORPUSCULAR VOLUME (BEAKER) 85.9 fL 79.0-92.2 (test code = 753) MEAN CORPUSCULAR HEMOGLOBIN 27.8 pg 25.7-32.2 (BEAKER) (test code = 751) MEAN CORPUSCULAR HEMOGLOBIN CONC 32.4 GM/DL 32.3-36.5 (BEAKER) (test code = 752) RED CELL DISTRIBUTION WIDTH 15.5 % 11.6-14.4 H (BEAKER) (test code = 412) PLATELET COUNT (BEAKER) (test 183 K/CU MM 150-450 code = 756) MEAN PLATELET VOLUME (BEAKER) 12.6 fL 9.4-12.4 H (test code = 754) NUCLEATED RED BLOOD CELLS 0 /100 WBC 0-0 (BEAKER) (test code = 413) NEUTROPHILS RELATIVE PERCENT 89 % (BEAKER) (test code = 429) LYMPHOCYTES RELATIVE PERCENT 4 % (BEAKER) (test code = 430) MONOCYTES RELATIVE PERCENT 6 % (BEAKER) (test code = 431) EOSINOPHILS RELATIVE PERCENT 0 % (BEAKER) (test code = 432) BASOPHILS RELATIVE PERCENT 0 % (BEAKER) (test code = 437) NEUTROPHILS ABSOLUTE COUNT 12.94 K/ L 1.78-5.38 H (BEAKER) (test code = 670) LYMPHOCYTES ABSOLUTE COUNT 0.61 K/ L 1.32-3.57 L (BEAKER) (test code = 414) MONOCYTES ABSOLUTE COUNT (BEAKER) 0.89 K/ L 0.30-0.82 H (test code = 415) EOSINOPHILS ABSOLUTE COUNT 0.00 K/ L 0.04-0.54 L (BEAKER) (test code = 416) BASOPHILS ABSOLUTE COUNT (BEAKER) 0.01 K/ L 0.01-0.08 (test code = 417) IMMATURE GRANULOCYTES-RELATIVE 1 % 0-1 PERCENT (BEAKER) (test code = 2801) BASIC METABOLIC [id number] 01:15:47 Test Item Value Reference Range Interpretation Comments SODIUM (BEAKER) 149 meq/L 136-145 H (test code = 381) POTASSIUM (BEAKER) 3.9 meq/L 3.5-5.1 (test code = 379) CHLORIDE (BEAKER) 121 meq/L 98-107 H (test code = 382) CO2 (BEAKER) (test 17 meq/L 22-29 L code = 355) BLOOD UREA NITROGEN 82 mg/dL 7-21 H (BEAKER) (test code = 354) CREATININE (BEAKER) 2.20 mg/dL 0.57-1.25 H (test code = 358) GLUCOSE RANDOM 219 mg/dL 70-105 H (BEAKER) (test code = 652) CALCIUM (BEAKER) 9.2 mg/dL 8.4-10.2 (test code = 697) EGFR (BEAKER) (test 30 mL/min/1.73 ESTIMA OZIEL GFR IS code = 1092) sq m NOT ACCURATE CREATININE CLEARANCE IN PREDICTING GLOMERULAR FILTRATION RATE . ESTIMATED GFR I S NOT APPLICABLE FOR DIALYSIS PATIEN TS. Sustainability Specialist ID - DBPOCT-GLUCOSE [id number] 21:12:39 Test Item Value Reference Range Interpretation Comments POC-GLUCOSE METER 155 mg/dL 70-110 H : TESTED A T [facility] (BEAKER) (test code = [place], 1538) [address]: Sustainability Specialist/Techni salma ID = [id number] for ite (contract), [place] BASIC METABOLIC [id number] 16:35:56 Test Item Value Reference Range Interpretation Comments SODIUM (BEAKER) 148 meq/L 136-145 H (test code = 381) POTASSIUM (BEAKER) 3.4 meq/L 3.5-5.1 L (test code = 379) CHLORIDE (BEAKER) 118 meq/L 98-107 H (test code = 382) CO2 (BEAKER) (test 22 meq/L 22-29 code = 355) BLOOD UREA NITROGEN 83 mg/dL 7-21 H (BEAKER) (test code = 354) CREATININE (BEAKER) 2.31 mg/dL 0.57-1.25 H (test code = 358) GLUCOSE RANDOM 238 mg/dL 70-105 H (GVISP 1) (test code = 652) CALCIUM (AKER) 8.8 mg/dL 8.4-10.2 (test code = 697) EGFR (GVISP 1) (test 28 mL/min/1.73 ESTIMA OZIEL GFR IS code = 1092) sq m NOT ACCURATE CREATININE CLEARANCE IN PREDICTING GLOMERULAR FILTRATION RATE . ESTIMATED GFR I S NOT APPLICABLE FOR DIALYSIS PATIEN TS. Sustainability Specialist ID - DBPOCT-GLUCOSE [id number] 16:16:11 Test Item Value Reference Range Interpretation Comments POC-GLUCOSE METER 217 mg/dL 70-110 H : TESTED A T [facility] 6720 (GVISP 1) (test code = [facility], 1538) [address]: Sustainability Specialist/Techni salma ID = [id number] for Guevara hitchcock (contract), Enr ique VANCOMYCIN LEVEL, [id number] 13:36:37 Test Item Value Reference Range Interpretation Comments VANCOMYCIN TROUGH ([facility]) (test 13.6 ug/mL 10.0-20.0 code = 522) Sustainability Specialist ID - PIAYA LPOCT-GLUCOSE [id number] 12:13:34 Test Item Value Reference Range Interpretation Comments POC-GLUCOSE METER 306 mg/dL 70-110 H : TESTED A T [facility] 6720 (GVISP 1) (test code = [facility], 1538) [address]: Sustainability Specialist/Techni salma ID = [id number] for Guevara hitchcock (contract), Enr ique POCT-GLUCOSE [id number] 10:19:44 Test Item Value Reference Range Interpretation Comments POC-GLUCOSE METER 334 mg/dL 70-110 H : TESTED A T [facility] 6720 (GVISP 1) (test code = [facility], 1538) [address]: Sustainability Specialist/Techni salma ID = [id number] for Guevara hitchcock (contract), En[place] ique SPUTUM CULTURE + GRAM [id number] 09:14:02 Test Item Value Reference Interpretation Comments Range CULTURE ([facility]) METHICILLIN A 4+ Methicil antionette (test code = 1095) RESISTANT resistant STAPHYLOCOCCUS Staphylococcu s AUREUS aureus Clindamycin (test R code = 10) Erythromycin (test R code = 4) Linezolid (test code S = 40) Nitrofurantoin (test S code = 23) Oxacillin (test code R = 14) Rifampin (test code = S 43) Tetracycline (test R code = 2) Trimethoprim + S Sulfamethoxazole (test code = 47) Vancomycin (test code S = 13) GRAM STAIN RESULT <1+ WBCs (BEAKER) (test code = 1123) GRAM STAIN RESULT 0-5 epithelial (BEAKER) (test code = cells [id number]) GRAM STAIN RESULT 3+ gram positive (BEAKER) (test code = cocci in pairs and 407380) clusters GRAM STAIN RESULT <1+ gram positive (BEAKER) (test code = rods 453577) GRAM STAIN RESULT <1+ gram positive (BEAKER) (test code = cocci in chains 603388) POCT-GLUCOSE [id number] 08:31:21 Test Item Value Reference Range Interpretation Comments POC-GLUCOSE METER 351 mg/dL 70-110 H : TESTED A T [facility] (BEAKER) (test code = [place], 1538) [address]: Sustainability Specialist/Techni salma ID = [id number] for Guevara hitchcock (contract), [place] BASIC METABOLIC [id number] 08:05:57 Test Item Value Reference Range Interpretation Comments SODIUM (BEAKER) 143 meq/L 136-145 (test code = 381) POTASSIUM (BEAKER) 3.6 meq/L 3.5-5.1 (test code = 379) CHLORIDE (BEAKER) 114 meq/L 98-107 H (test code = 382) CO2 (BEAKER) (test 21 meq/L 22-29 L code = 355) BLOOD UREA NITROGEN 90 mg/dL 7-21 H (BEAKER) (test code = 354) CREATININE (BEAKER) 2.59 mg/dL 0.57-1.25 H (test code = 358) GLUCOSE RANDOM 428 mg/dL 70-105 HH (BEAKER) (test code = 652) CALCIUM (BEAKER) 8.8 mg/dL 8.4-10.2 (test code = 697) EGFR (BEAKER) (test 24 mL/min/1.73 ESTIMA OZIEL GFR IS code = 1092) sq m NOT ACCURATE CREATININE CLEARANCE IN PREDICTING GLOMERULAR FILTRATION RATE . ESTIMATED GFR I S NOT APPLICABLE FOR DIALYSIS PATIEN TS. Sustainability Specialist ID - PIRENÉ LCBC W/PLT COUNT & AUTO [id number] 07:37:17 Test Item Value Reference Range Interpretation Comments WHITE BLOOD CELL COUNT (BEAKER) 12.7 K/ L 3.5-10.5 H (test code = 775) RED BLOOD CELL COUNT (BEAKER) 4.08 M/ L 4.63-6.08 L (test code = 761) HEMOGLOBIN (BEAKER) (test code = 11.4 GM/DL 13.7-17.5 L 410) HEMATOCRIT (BEAKER) (test code = 35.1 % 40.1-51.0 L 411) MEAN CORPUSCULAR VOLUME (BEAKER) 86.0 fL 79.0-92.2 (test code = 753) MEAN CORPUSCULAR HEMOGLOBIN 27.9 pg 25.7-32.2 (BEAKER) (test code = 751) MEAN CORPUSCULAR HEMOGLOBIN CONC 32.5 GM/DL 32.3-36.5 (BEAKER) (test code = 752) RED CELL DISTRIBUTION WIDTH 15.2 % 11.6-14.4 H (BEAKER) (test code = 412) PLATELET COUNT (BEAKER) (test 145 K/CU MM 150-450 L code = 756) MEAN PLATELET VOLUME (BEAKER) 12.8 fL 9.4-12.4 H (test code = 754) NUCLEATED RED BLOOD CELLS 0 /100 WBC 0-0 (BEAKER) (test code = 413) NEUTROPHILS RELATIVE PERCENT 90 % (BEAKER) (test code = 429) LYMPHOCYTES RELATIVE PERCENT 4 % (BEAKER) (test code = 430) MONOCYTES RELATIVE PERCENT 5 % (BEAKER) (test code = 431) EOSINOPHILS RELATIVE PERCENT 0 % (BEAKER) (test code = 432) BASOPHILS RELATIVE PERCENT 0 % (BEAKER) (test code = 437) NEUTROPHILS ABSOLUTE COUNT 11.43 K/ L 1.78-5.38 H (BEAKER) (test code = 670) LYMPHOCYTES ABSOLUTE COUNT 0.52 K/ L 1.32-3.57 L (BEAKER) (test code = 414) MONOCYTES ABSOLUTE COUNT (BEAKER) 0.66 K/ L 0.30-0.82 (test code = 415) EOSINOPHILS ABSOLUTE COUNT 0.00 K/ L 0.04-0.54 L (BEAKER) (test code = 416) BASOPHILS ABSOLUTE COUNT (BEAKER) 0.00 K/ L 0.01-0.08 L (test code = 417) IMMATURE GRANULOCYTES-RELATIVE 1 % 0-1 PERCENT (BEAKER) (test code = 2801) BLOOD GAS, [id number] 07:31:54 Test Item Value Reference Range Interpretation Comments PH ARTERIAL (BEAKER) (test code = 7.38 7.35-7.45 383) PCO2 ARTERIAL (BEAKER) (test code 34 mm Hg 35-45 L = 384) PO2 ARTERIAL (BEAKER) (test code 91 mm Hg 80-90 H = 385) O2 SATURATION ARTERIAL (BEAKER) 96.7 % 96.0-97.0 (test code = 386) HCO3 ARTERIAL (BEAKER) (test code 20 mmol/L 21-29 L = 388) BASE EXCESS ARTERIAL (BEAKER) -4.7 mmol/L -2.0-3.0 L (test code = 387) PATIENT TEMPERATURE (BEAKER) 37.5 (test code = 1818) FIO2 (BEAKER) (test code = 1819) 60.0 BASIC METABOLIC [id number] 23:20:11 Test Item Value Reference Range Interpretation Comments SODIUM (BEAKER) 146 meq/L 136-145 H (test code = 381) POTASSIUM (BEAKER) 3.7 meq/L 3.5-5.1 (test code = 379) CHLORIDE (BEAKER) 116 meq/L 98-107 H (test code = 382) CO2 (BEAKER) (test 20 meq/L 22-29 L code = 355) BLOOD UREA NITROGEN 88 mg/dL 7-21 H (BEAKER) (test code = 354) CREATININE (BEAKER) 2.52 mg/dL 0.57-1.25 H (test code = 358) GLUCOSE RANDOM 250 mg/dL 70-105 H (BEAKER) (test code = 652) CALCIUM (BEAKER) 8.8 mg/dL 8.4-10.2 (test code = 697) EGFR (BEAKER) (test 25 mL/min/1.73 ESTIMA OZIEL GFR IS code = 1092) sq m NOT ACCURATE CREATININE CLEARANCE IN PREDICTING GLOMERULAR FILTRATION RATE . ESTIMATED GFR I S NOT APPLICABLE FOR DIALYSIS PATIEN TS. Sustainability Specialist ID - [id number] 21:43:21 Test Item Value Reference Range Interpretation Comments POC-GLUCOSE METER 190 mg/dL 70-110 H : TESTED A T [facility] 6720 (BEAKER) (test code = [facility], 1538) [id number]: Sustainability Specialist/Techni aslma ID = [id number] for Mayra cortez (contract), Javan Martinez BASIC METABOLIC [id number] 17:05:08 Test Item Value Reference Range Interpretation Comments SODIUM (BEAKER) 148 meq/L 136-145 H (test code = 381) POTASSIUM (BEAKER) 3.1 meq/L 3.5-5.1 L (test code = 379) CHLORIDE (BEAKER) 115 meq/L 98-107 H (test code = 382) CO2 (BEAKER) (test 22 meq/L 22-29 code = 355) BLOOD UREA NITROGEN 77 mg/dL 7-21 H (BEAKER) (test code = 354) CREATININE (BEAKER) 2.60 mg/dL 0.57-1.25 H (test code = 358) GLUCOSE RANDOM 213 mg/dL 70-105 H (BEAKER) (test code = 652) CALCIUM (BEAKER) 8.7 mg/dL 8.4-10.2 (test code = 697) EGFR (BEAKER) (test 24 mL/min/1.73 ESTIMA OZIEL GFR IS code = 1092) sq m NOT ACCURATE CREATININE CLEARANCE IN PREDICTING GLOMERULAR FILTRATION RATE . ESTIMATED GFR I S NOT APPLICABLE FOR DIALYSIS PATIEN TS. Sustainability Specialist ID - BSPOCT-GLUCOSE [id number] 16:54:09 Test Item Value Reference Range Interpretation Comments POC-GLUCOSE METER 185 mg/dL 70-110 H : TESTED A T [facility] 6720 (BEAKER) (test code = [facility], 1538) 86651: Sustainability Specialist/Techni salma ID = [id number] for Nishant(contract ), Sindy POCT-GLUCOSE [id number] 13:00:37 Test Item Value Reference Range Interpretation Comments POC-GLUCOSE METER 305 mg/dL 70-110 H : TESTED A T [facility] 6720 (BEAKER) (test code = [facility], 1538) 16319: Sustainability Specialist/Techni salma ID = [id number] for Nishant(contract ), Sindy BLOOD CULTURE IDENTIFICATION [id number] 09:42:13 Test Item Value Reference Interpretation Comments Range LISTERIA MONOCYTOGENES Not detected Not detected (test code = 4239450) STAPHYLOCOCCUS (test Detected Not detected A code = 4984495) STAPHYLOCOCCUS AUREUS Detected Not detected A Methic illin-resistant (test code = 0359291) S. aur eus (MRSA)First-antionette e therapy: Vancom ycinID CONSULTATION REQUIRED. Staphylococcus aureus DETECTED MecA DETECTEDReferen ce Range: Not Dete cted STREPTOCOCCUS (test Not detected Not detected code = 2545832) STREPTOCOCCUS Not detected Not detected AGALACTIAE (GROUP B) (test code = 3519272) STREPTOCOCCUS Not detected Not detected PNEUMONIAE (test code = 6248632) STREPTOCOCCUS PYOGENES Not detected Not detected (GROUP A) (test code = 1193892) ACINETOBACTER BAUMANNII Not detected Not detected (test code = 2575603) HAEMOPHILUS INFLUENZAE Not detected Not detected (test code = 6077005) NEISSERIA MENINGITIDIS Not detected Not detected (test code = 8910035) ENTEROBACTERIACEAE Not detected Not detected (test code = 4212612) ENTEROBACTER CLOACOE Not detected Not detected COMPLEX (test code = 7065859) KLEBSIELLA OXYTOCA Not detected Not detected (test code = 9269217) KLEBSIELLA PNEUMONIAE Not detected Not detected (test code = 1650) PROTEUS (test code = Not detected Not detected 8219977) SERRATIA MARCESCENS Not detected Not detected (test code = 0475946) SHIRIN ALBICANS (test Not detected Not detected code = 6868771) SHIRIN GLABRATA (test Not detected Not detected code = 2620481) SHIRIN KRUSEI (test Not detected Not detected code = 0334968) SHIRIN PARAPSILOSIS Not detected Not detected (test code = 8045467) SHIRIN TROPICALIS Not detected Not detected (test code = 9388287) ESCHERICHIA COLI (test Not detected Not detected code = 8129842) METHICILLIN-RESISTANCE Detected Not detected A Note: Antimicrobial GENE (test code = resistance can occur 5713812) via multiple mechanisms. A N ot Detected result for the KaptaArray antimicrobial resistance gene assays does not indicate antimicrobial susceptibility. Subculturing is required for sp ecies identification and susceptibility testing of isol ates. VANCOMYCIN-RESISTANCE GENE (test code = 8262303) CARBAPENEM-RESISTANCE GENE (test code = 3806527) ENTEROCOCCUS-BEAKER Not detected Not detected (test code = 1869211) PSEUDOMONAS Not detected Not detected AERUGINOSA-BEAKER (test code = 9468066) Other bacteria and resistance markers not targeted by this PCR panel cannot be excluded; therefore clinical correlation and follow up of serology, culture results, and other molecular studies is required. The results are not intended to be used as the sole means for clinical diagnosis or patient management decisions. This sample was tested at the [facility] using the Stor[employer] Blood Culture ID Panel. It is FDA cleared and has been verified and approved by the [facility] for clinical use. This laboratory is CLIA-certified and College ofAmerican Pathologists (CAP)-accredited to perform high complexity testing.(CELLAVISION MANUAL DIFF)2021-06-14 07:50:39 Test Item Value Reference Range Interpretation Comments NEUTROPHILS - REL 80 % (CELLAVISION)(BEAKER) (test code = 2816) MONOCYTES - REL 5 % (CELLAVISION)(BEAKER) (test code = 2818) BANDS - REL (CELLAVISION)(BEAKER) 15 % 0-10 H (test code = 2826) NEUTROPHILS - ABS 8.56 K/ul 1.78-5.38 H (CELLAVISION)(BEAKER) (test code = 2830) MONOCYTES - ABS 0.54 K/uL 0.30-0.82 (CELLAVISION)(BEAKER) (test code = 2832) BANDS - ABS (CELLAVISION)(BEAKER) 1.61 K/uL 0.00-0.80 H (test code = 2840) TOTAL COUNTED (BEAKER) (test code = 100 1351) PLT MORPHOLOGY (BEAKER) (test code Normal = 486) SMUDGE CELLS (BEAKER) (test code = Present 1371) POIKILOCYTES (BEAKER) (test code = 3+ many 966) SPHEROCYTES (BEAKER) (test code = 1+ few 768) ACANTHOCYTES (BEAKER) (test code = 1+ few 471) ARTIFACT (CELLAVISION)(BEAKER) Present (test code = 3432) PLATELET CONCENTRATION Decreased (CELLAVISION)(BEAKER) (test code = 3438) Sustainability Specialist ID - Anna Campos comments: Slide comments:CBC W/PLT COUNT & AUTO [id number] 07:50:38 Test Item Value Reference Range Interpretation Comments WHITE BLOOD CELL COUNT (BEAKER) 10.7 K/ L 3.5-10.5 H (test code = 775) RED BLOOD CELL COUNT (BEAKER) 4.29 M/ L 4.63-6.08 L (test code = 761) HEMOGLOBIN (BEAKER) (test code = 11.8 GM/DL 13.7-17.5 L 410) HEMATOCRIT (BEAKER) (test code = 37.9 % 40.1-51.0 L 411) MEAN CORPUSCULAR VOLUME (BEAKER) 88.3 fL 79.0-92.2 (test code = 753) MEAN CORPUSCULAR HEMOGLOBIN 27.5 pg 25.7-32.2 (BEAKER) (test code = 751) MEAN CORPUSCULAR HEMOGLOBIN CONC 31.1 GM/DL 32.3-36.5 L (BEAKER) (test code = 752) RED CELL DISTRIBUTION WIDTH 14.9 % 11.6-14.4 H (BEAKER) (test code = 412) PLATELET COUNT (BEAKER) (test 105 K/CU MM 150-450 L code = 756) MEAN PLATELET VOLUME (BEAKER) 12.7 fL 9.4-12.4 H (test code = 754) NUCLEATED RED BLOOD CELLS 0 /100 WBC 0-0 (BEAKER) (test code = 413) [id number] 07:22:30 Test Item Value Reference Range Interpretation Comments PARTIAL THROMBOPLASTIN TIME 77.1 seconds 22.5-36.0 H (BEAKER) (test code = 760) Strep pneumoniae [id number] 05:43:45 Test Item Value Reference Range Interpretation Comments Strep pneumoniae Presumptive negative Presumptive Antigen (test code = [place] [address]-6) pneumonia - see pneumococcal comment pneumonia - see comment, Presumptive negative for pneumococcal meningitis - see comment BANDAR (test code = BANDAR) Presumptive negative for pneumococcal pneumonia, suggesting no current or recent pneumococcal infection. Infection due to S. pneumoniae cannot be ruled out since the antigen present in the sample may be below the detection limit of the test. Lab Interpretation Normal (test code = 28422-1) [facility] [id number] 05:43:45 Test Item Value Reference Range Interpretation Comments STREP PNEUMONIAE Presumptive negative Presumptive negative ANTIGEN (BEAKER) for pneumococcal for pneumococcal (test code = 1615) pneumonia - see pneumonia - see comment commen Presumptive negative for pneumococcal pneumonia, suggesting no current or recent pneumococcal infection. Infection due to S. pneumoniae cannot be ruled out since the antigen present in the sample may be below the detection limit of the test. Legionella antigen, [id number] 05:42:00 Test Item Value Reference Range Interpretation Comments Legionella Urine Negative - see Negative for L. Antigen (test code comment pneumophi la = 95990-2) serogroup 1 ant igen, suggesting no r ecent or current infe ction with this serog roup. Legionellosis c annot be ruled out si nce other serogroup s and species may cau se disease. [facility] MonicaLEGION[facility]LLA ANTIGEN, [id number] 05:42:00 Test Item Value Reference Range Interpretation Comments L. PNEUMOPHILA Negative - see Negative fo r L. SEROGP 1 UR AG comment pneumophila (BEAKER) (test code serogrou p 1 antigen, = 1156) suggesting no r ecent or current infe ction with this serog roup. Legionellosis c annot be ruled out si nce other serogroup s and species may cau se disease. POCT-GLUCOSE [id number] 05:25:38 Test Item Value Reference Range Interpretation Comments POC-GLUCOSE METER 269 mg/dL 70-110 H : TESTED A T [facility] 6720 (BEAKER) (test code = [facility], 1538) 33287: Sustainability Specialist/Techni salma ID = [id number] for Ra man (contract), [facility] BASIC METABOLIC [id number] 04:43:54 Test Item Value Reference Range Interpretation Comments SODIUM (BEAKER) 149 meq/L 136-145 H (test code = 381) POTASSIUM (BEAKER) 4.1 meq/L 3.5-5.1 Specimen markedly (test code = 379) hemolyzed CHLORIDE (BEAKER) 118 meq/L 98-107 H (test code = 382) CO2 (BEAKER) (test 19 meq/L 22-29 L code = 355) BLOOD UREA NITROGEN 72 mg/dL 7-21 H (BEAKER) (test code = 354) CREATININE (BEAKER) 2.50 mg/dL 0.57-1.25 H Specimen markedly (test code = 358) hemolyzed GLUCOSE RANDOM 309 mg/dL 70-105 H (BEAKER) (test code = 652) CALCIUM (BEAKER) 8.9 mg/dL 8.4-10.2 (test code = 697) EGFR (BEAKER) (test 26 mL/min/1.73 ESTIMA OZIEL GFR IS code = 1092) sq m NOT ACCURATE CREATININE CLEARANCE IN PREDICTING GLOMERULAR FILTRATION RATE . ESTIMATED GFR I S NOT APPLICABLE FOR DIALYSIS PATIEN TS. Sustainability Specialist ID - PIAYA LRAD, CHEST, 1 VIEW, NON [id number] 04:41:00Reason for exam:->COVIDShould this be performed at the bedside?->Yes [facility] 1950 Sex: MFINAL REPORT RAD, CHEST, 1 VIEW, NON DEPT INDICATION: COVID COMPARISON: Prior day's exam FINDINGS: Portable frontal view of the chest. IMPRESSION: Support Lines: Stable. Lungs and pleura: Unchanged airspace and pleural opacities. No pneumothorax.Heart and mediastinum: Stable contours. Stable surgical changes.Additional findings: None. Signed: Jacque Mcneal Verified Date/Time: 06/14/2021 04:41:08 BLOOD GAS, [id number] 04:24:13 Test Item Value Reference Range Interpretation Comments PH ARTERIAL (BEAKER) (test code = 7.37 7.35-7.45 383) PCO2 ARTERIAL (BEAKER) (test code 40 mm Hg 35-45 = 384) PO2 ARTERIAL (BEAKER) (test code 151 mm Hg 80-90 H = 385) O2 SATURATION ARTERIAL (BEAKER) 98.9 % 96.0-97.0 H (test code = 386) HCO3 ARTERIAL (BEAKER) (test code 22 mmol/L 21-29 = 388) BASE EXCESS ARTERIAL (BEAKER) -2.7 mmol/L -2.0-3.0 L (test code = 387) PATIENT TEMPERATURE (BEAKER) 37.4 (test code = 1818) FIO2 (BEAKER) (test code = 1819) 70.0 POCT-GLUCOSE [id number] 23:53:11 Test Item Value Reference Range Interpretation Comments POC-GLUCOSE METER 255 mg/dL 70-110 H : TESTED A T [facility] 6720 (BEAKER) (test code = [facility] [place], 1538) 17478: Sustainability Specialist/Techni salma ID = [id number] for Pola rios (contract)Bar BLOOD GAS, [id number] 22:27:26 Test Item Value Reference Range Interpretation Comments PH ARTERIAL (BEAKER) (test code = 7.38 7.35-7.45 383) PCO2 ARTERIAL (BEAKER) (test code 38 mm Hg 35-45 = 384) PO2 ARTERIAL (BEAKER) (test code 168 mm Hg 80-90 H = 385) O2 SATURATION ARTERIAL (BEAKER) 99.1 % 96.0-97.0 H (test code = 386) HCO3 ARTERIAL (BEAKER) (test code 22 mmol/L 21-29 = 388) BASE EXCESS ARTERIAL (BEAKER) -2.3 mmol/L -2.0-3.0 L (test code = 387) PATIENT TEMPERATURE (BEAKER) 37.5 (test code = 1818) FIO2 (BEAKER) (test code = 1819) 80.0 BASIC METABOLIC [id number] 18:42:50 Test Item Value Reference Range Interpretation Comments SODIUM (BEAKER) 154 meq/L 136-145 H (test code = 381) POTASSIUM (BEAKER) 3.3 meq/L 3.5-5.1 L (test code = 379) CHLORIDE (BEAKER) 118 meq/L 98-107 H (test code = 382) CO2 (BEAKER) (test 28 meq/L 22-29 code = 355) BLOOD UREA NITROGEN 67 mg/dL 7-21 H (BEAKER) (test code = 354) CREATININE (BEAKER) 2.21 mg/dL 0.57-1.25 H (test code = 358) GLUCOSE RANDOM 208 mg/dL 70-105 H (BEAKER) (test code = 652) CALCIUM (BEAKER) 9.1 mg/dL 8.4-10.2 (test code = 697) EGFR (BEAKER) (test 29 mL/min/1.73 ESTIMA OZIEL GFR IS code = 1092) sq m NOT ACCURATE CREATININE CLEARANCE IN PREDICTING GLOMERULAR FILTRATION RATE . ESTIMATED GFR I S NOT APPLICABLE FOR DIALYSIS PATIEN TS. Sustainability Specialist ID - BSC-Reactive [id number] 18:42:33 Test Item Value Reference Range Interpretation Comments CRP (test code = 676) 18.49 mg/dL 0.00-0.50 H BANDAR (test code = BANDAR) Sustainability Specialist ID - BS Lab Interpretation (test Abnormal code = 34759-6) [facility] Monica[facility]-REACTIVE [id number] 18:42:33 Test Item Value Reference Range Interpretation Comments C-REACTIVE PROTEIN (BEAKER) (test 18.49 mg/dL 0.00-0.50 H code = 676) Sustainability Specialist ID - [id number] 18:36:32 Test Item Value Reference Range Interpretation Comments PARTIAL THROMBOPLASTIN TIME 29.7 seconds 22.5-36.0 (BEAKER) (test code = 760) POCT-GLUCOSE [id number] 17:34:04 Test Item Value Reference Range Interpretation Comments POC-GLUCOSE METER 191 mg/dL 70-110 H : TESTED A T [facility] (BEAKER) (test code = [facility] [place], 1538) 85383: Sustainability Specialist/Techni salma ID = [id number] for Si (contract), Bill garcia BLOOD GAS, [id number] 17:13:19 Test Item Value Reference Range Interpretation Comments PH ARTERIAL (BEAKER) (test code = 7.48 7.35-7.45 H 383) PCO2 ARTERIAL (BEAKER) (test code 34 mm Hg 35-45 L = 384) PO2 ARTERIAL (BEAKER) (test code = 97 mm Hg 80-90 H 385) O2 SATURATION ARTERIAL (BEAKER) 97.7 % 96.0-97.0 H (test code = 386) HCO3 ARTERIAL (BEAKER) (test code 25 mmol/L 21-29 = 388) BASE EXCESS ARTERIAL (BEAKER) 1.7 mmol/L -2.0-3.0 (test code = 387) PATIENT TEMPERATURE (BEAKER) (test 37.5 code = 1818) FIO2 (BEAKER) (test code = 1819) 100.0 RAD, CHEST, 1 VIEW, NON [id number] 16:50:00Reason for exam:->PNAShould this be performed at the bedside?->Yes [facility] 1950 Sex: MFINAL REPORT Exam: RAD, CHEST, 1 VIEW, NON DEPTDate: 06/13/2021 4:48 PM Indication:PNAComparison: 06/12/2021 FINDINGS: Lines/Tubes/Devices: Status post sternotomy, enteric tube in place seen coursing below the diaphragm with distal tip collimated out of view. Lungs/pleura:The left hemithorax is grossly clear. Interval development of right perihilar and basilar airspace opacity. No pneum othorax. Likely trace right effusion. Heart/Mediastinum:The cardiomediastinal silhouette is normal in size and contour. Bones/Soft Tissues: No acute osseous abnormality. Upper abdomen: Unremarkable. IMPRESSION:Interval development of right perihilar and basilar airspace opacity, likely infectious process. Aspiration within differential.Likely trace right-sided effusion. Signed: Kelvin Sosa Verified Date/Time: 06/13/2021 16:50:32 Reading Location: [address] Transitional Reading Room [id number] 15:08:02 Test Item Value Reference Range Interpretation Comments PROCALCITONIN (BEAKER) (test code 0.26 ng/mL <0.05 H = 3036) SEPSIS RISK (ng/mL)Low: 0.05-0.50Intermediate: 0.51-2.00High: >=2.01HEPATIC FUNCTION [id number] 13:00:38 Test Item Value Reference Range Interpretation Comments TOTAL PROTEIN (BEAKER) (test code = 6.6 gm/dL 6.0-8.3 770) ALBUMIN (BEAKER) (test code = 1145) 3.5 g/dL 3.5-5.0 BILIRUBIN TOTAL (BEAKER) (test code 0.9 mg/dL 0.2-1.2 = 377) BILIRUBIN DIRECT (BEAKER) (test 0.4 mg/dL 0.1-0.5 code = 706) ALKALINE PHOSPHATASE (BEAKER) (test 75 U/L 40-150 code = 346) AST (SGOT) (BEAKER) (test code = 28 U/L 5-34 353) ALT (SGPT) (BEAKER) (test code = 40 U/L 6-55 347) Sustainability Specialist ID - PIAYA LPOCT-GLUCOSE [id number] 12:04:07 Test Item Value Reference Range Interpretation Comments POC-GLUCOSE METER 227 mg/dL 70-110 H : TESTED A T [facility] 6720 (BEAKER) (test code = [facility], 1538) 80791: Sustainability Specialist/Techni salma ID = [id number] for Fo ster (contract), LaT lalitha BLOOD GAS, [id number] 08:56:57 Test Item Value Reference Range Interpretation Comments PH ARTERIAL (BEAKER) (test code = 7.50 7.35-7.45 H 383) PCO2 ARTERIAL (BEAKER) (test code 32 mm Hg 35-45 L = 384) PO2 ARTERIAL (BEAKER) (test code = 54 mm Hg 80-90 L 385) O2 SATURATION ARTERIAL (BEAKER) 90.6 % 96.0-97.0 L (test code = 386) HCO3 ARTERIAL (BEAKER) (test code 25 mmol/L 21-29 = 388) BASE EXCESS ARTERIAL (BEAKER) 2.3 mmol/L -2.0-3.0 (test code = 387) PATIENT TEMPERATURE (BEAKER) (test 37.5 code = 1818) FIO2 (BEAKER) (test code = 1819) 32.0 POCT-GLUCOSE [id number] 05:29:24 Test Item Value Reference Range Interpretation Comments POC-GLUCOSE METER 179 mg/dL 70-110 H : TESTED A T [facility] (BEAKER) (test code = [facility] [place], 1538) 84100: Sustainability Specialist/Techni salma ID = [id number] for Kuldeep luna (contract), Sondra xis [id number] 04:09:14 Test Item Value Reference Range Interpretation Comments MAGNESIUM (BEAKER) (test code = 2.3 mg/dL 1.6-2.6 627) Sustainability Specialist ID - JAKE [id number] 04:09:14 Test Item Value Reference Range Interpretation Comments PHOSPHORUS (BEAKER) (test code = 1.9 mg/dL 2.3-4.7 L 604) Sustainability Specialist ID - JAKE MBASIC METABOLIC [id number] 04:09:13 Test Item Value Reference Range Interpretation Comments SODIUM (BEAKER) 149 meq/L 136-145 H (test code = 381) POTASSIUM (BEAKER) 3.6 meq/L 3.5-5.1 (test code = 379) CHLORIDE (BEAKER) 116 meq/L 98-107 H (test code = 382) CO2 (BEAKER) (test 24 meq/L 22-29 code = 355) BLOOD UREA NITROGEN 67 mg/dL 7-21 H (BEAKER) (test code = 354) CREATININE (BEAKER) 2.03 mg/dL 0.57-1.25 H (test code = 358) GLUCOSE RANDOM 211 mg/dL 70-105 H (BEAKER) (test code = 652) CALCIUM (BEAKER) 9.2 mg/dL 8.4-10.2 (test code = 697) EGFR (BEAKER) (test 32 mL/min/1.73 ESTIMA OZIEL GFR IS code = 1092) sq m NOT ACCURATE CREATININE CLEARANCE IN PREDICTING GLOMERULAR FILTRATION RATE . ESTIMATED GFR I S NOT APPLICABLE FOR DIALYSIS PATIEN TS. Sustainability Specialist ID - JAKE MCBC W/PLT COUNT & AUTO [id number] 03:55:31 Test Item Value Reference Range Interpretation Comments WHITE BLOOD CELL COUNT (BEAKER) 14.5 K/ L 3.5-10.5 H (test code = 775) RED BLOOD CELL COUNT (BEAKER) 4.96 M/ L 4.63-6.08 (test code = 761) HEMOGLOBIN (BEAKER) (test code = 13.7 GM/DL 13.7-17.5 410) HEMATOCRIT (BEAKER) (test code = 42.8 % 40.1-51.0 411) MEAN CORPUSCULAR VOLUME (BEAKER) 86.3 fL 79.0-92.2 (test code = 753) MEAN CORPUSCULAR HEMOGLOBIN 27.6 pg 25.7-32.2 (BEAKER) (test code = 751) MEAN CORPUSCULAR HEMOGLOBIN CONC 32.0 GM/DL 32.3-36.5 L (BEAKER) (test code = 752) RED CELL DISTRIBUTION WIDTH 14.5 % 11.6-14.4 H (BEAKER) (test code = 412) PLATELET COUNT (BEAKER) (test 129 K/CU MM 150-450 L code = 756) MEAN PLATELET VOLUME (BEAKER) 11.5 fL 9.4-12.4 (test code = 754) NUCLEATED RED BLOOD CELLS 0 /100 WBC 0-0 (BEAKER) (test code = 413) NEUTROPHILS RELATIVE PERCENT 82 % (BEAKER) (test code = 429) LYMPHOCYTES RELATIVE PERCENT 9 % (BEAKER) (test code = 430) MONOCYTES RELATIVE PERCENT 9 % (BEAKER) (test code = 431) EOSINOPHILS RELATIVE PERCENT 0 % (BEAKER) (test code = 432) BASOPHILS RELATIVE PERCENT 0 % (BEAKER) (test code = 437) NEUTROPHILS ABSOLUTE COUNT 11.85 K/ L 1.78-5.38 H (BEAKER) (test code = 670) LYMPHOCYTES ABSOLUTE COUNT 1.23 K/ L 1.32-3.57 L (BEAKER) (test code = 414) MONOCYTES ABSOLUTE COUNT (BEAKER) 1.29 K/ L 0.30-0.82 H (test code = 415) EOSINOPHILS ABSOLUTE COUNT 0.00 K/ L 0.04-0.54 L (BEAKER) (test code = 416) BASOPHILS ABSOLUTE COUNT (BEAKER) 0.01 K/ L 0.01-0.08 (test code = 417) IMMATURE GRANULOCYTES-RELATIVE 1 % 0-1 PERCENT (BEAKER) (test code = 2801) BLOOD GAS, [id number] 03:41:42 Test Item Value Reference Range Interpretation Comments PH VENOUS (BEAKER) (test code = 7.17 7.32-7.42 LL 701) PCO2 VENOUS (BEAKER) (test code = 59 mm Hg 41-51 H 755) PO2 VENOUS (BEAKER) (test code = 49 mm Hg 25-40 H 702) O2 SATURATION VENOUS (BEAKER) 73.2 % 40.0-70.0 H (test code = 703) HCO3 VENOUS (BEAKER) (test code = 21 mmol/L 21-29 705) BASE EXCESS VENOUS (BEAKER) (test -8.6 mmol/L -2.0-3.0 L code = 704) PATIENT TEMPERATURE (BEAKER) 37.0 (test code = 1818) FIO2 (BEAKER) (test code = 1819) 21.0 BASIC METABOLIC [id number] 22:07:51 Test Item Value Reference Range Interpretation Comments SODIUM (BEAKER) 150 meq/L 136-145 H (test code = 381) POTASSIUM (BEAKER) 3.3 meq/L 3.5-5.1 L Specimen slightly (test code = 379) hemolyzed CHLORIDE (BEAKER) 116 meq/L 98-107 H (test code = 382) CO2 (BEAKER) (test 24 meq/L 22-29 code = 355) BLOOD UREA NITROGEN 80 mg/dL 7-21 H (BEAKER) (test code = 354) CREATININE (BEAKER) 2.15 mg/dL 0.57-1.25 H Specimen slightly (test code = 358) hemolyzed GLUCOSE RANDOM 283 mg/dL 70-105 H (BEAKER) (test code = 652) CALCIUM (BEAKER) 8.8 mg/dL 8.4-10.2 (test code = 697) EGFR (BEAKER) (test 30 mL/min/1.73 ESTIMA OZIEL GFR IS code = 1092) sq m NOT ACCURATE CREATININE CLEARANCE IN PREDICTING GLOMERULAR FILTRATION RATE . ESTIMATED GFR I S NOT APPLICABLE FOR DIALYSIS PATIEN TS. Sustainability Specialist ID - DBRAD, ABDOMEN/KUB, 1 VIEW [id number] 19:08:00Reason for exam:- >Tube feeeds placement [facility] 1950 Sex: MFINAL REPORT Exam: RAD, ABDOMEN/KUB, 1 VIEW APDate: 06/12/2021 7:06 PM Indication:Tube feeds placement COMPARISON: 06/11/2021 DISCUSSION/IMPRESSION: Enteric tube coursing below the diaphragm, coiled within the gastric lumen with distal tip near the expected location of the antrum/proximal duodenum. Nonobstructive bowel gas pattern. Moderate rectal fecal burden. Left abdomen 3.4 cm calcific density again noted. No evidence of free air within the limitations of this portable study. Signed: Kelvin Sosa Verified Date/Time: 06/12/2021 19:08:52 Reading Location: [address] Transitional Reading Room U/S, RENAL, [id number] 18:15:00Reason for exam:->VIANNEY/CKD [facility] 1950 Sex: MFINAL REPORT TECHNIQUE: Grayscale ultrasound of the kidneys and bladder. INDICATION: VIANNEY/CKD. COMPARISON: None. FINDINGS: RIGHT KIDNEY: The right kidney measures 9.7 x 5.1 x 4 cm with a cortical thickness of 1.4 cm. Increased cortical echogenicity. No solid mass lesions. No hydronephrosis. Renal artery and vein are patent. A right lower pole parapelvic anechoic lesion measures 1.6 x 3 x 1.7 cm and has posterior acoustic enhancement, most consistent with a simple parapelvic renal cyst. No follow-up imaging is recommended for this finding. LEFT KIDNEY: The left kidney measures 10.2x 5.4 x 4.7 cm with a cortical thickness of 1.6 cm. Increased clinical echogenicity. No solid mass le sions. No hydronephrosis. Renal artery and vein are patent. BLADDER: Decompressed by a Smith catheter. IMPRESSION: Findings of medical renal disease. No hydronephrosis Signed: Fly Bean MDReport Verified Date/Time: 06/12/2021 18:15:27 C METABOLIC [id number] 17:36:19 Test Item Value Reference Range Interpretation Comments SODIUM (BEAKER) 146 meq/L 136-145 H (test code = 381) POTASSIUM (BEAKER) 4.1 meq/L 3.5-5.1 Specimen slightly (test code = 379) hemolyzed CHLORIDE (BEAKER) 116 meq/L 98-107 H (test code = 382) CO2 (BEAKER) (test 19 meq/L 22-29 L code = 355) BLOOD UREA NITROGEN 72 mg/dL 7-21 H (BEAKER) (test code = 354) CREATININE (BEAKER) 2.15 mg/dL 0.57-1.25 H Specimen slightly (test code = 358) hemolyzed GLUCOSE RANDOM 354 mg/dL 70-105 H (BEAKER) (test code = 652) CALCIUM (BEAKER) 9.2 mg/dL 8.4-10.2 (test code = 697) EGFR (BEAKER) (test 30 mL/min/1.73 ESTIMA OZIEL GFR IS code = 1092) sq m NOT ACCURATE CREATININE CLEARANCE IN PREDICTING GLOMERULAR FILTRATION RATE . ESTIMATED GFR I S NOT APPLICABLE FOR DIALYSIS PATIEN TS. Sustainability Specialist ID - [id number] [id number] 17:27:16 Test Item Value Reference Range Interpretation Comments POC-GLUCOSE METER 316 mg/dL 70-110 H : [facility] (test code = [facility], 1538) [address]: Sustainability Specialist/Techni salma ID = [id number] for Fo ster (contract), LaT lalitha [id number] 14:48:31 Test Item Value Reference Range Interpretation Comments RPR (test code = 86898-4) Nonreactive Nonreactive Lab Interpretation (test code = Normal 91021-0) [facility] [place] MonicaRPR2022-02-07 14:48:31 Test Item Value Reference Range Interpretation Comments RPR SCREEN ([facility]) (test code = Nonreactive Nonreactive 420) POCT-GLUCOSE [id number] 11:31:06 Test Item Value Reference Range Interpretation Comments POC-GLUCOSE METER 303 mg/dL 70-110 H : TESTED [facility] T [facility] (test code = [facility], 1538) [address]: Sustainability Specialist/Techni salma ID = [id number] for Si ms (contract), Bill eya POCT-GLUCOSE [id number] 09:45:00 Test Item Value Reference Range Interpretation Comments POC-GLUCOSE METER 269 mg/dL 70-110 H : Notified RN/MD: (GALE) (test code = TESTED AT [facility] 6720 1538) [facility], [address]: Sustainability Specialist/Techni salma ID = [id number] for Si ms (contract), Bill eya 2D Echo W/Doppler(CW/PW/Color)2021-06-12 09:43:24Ejection FractionSLEH ECHO HEARTLAB MKCKESSON [facility]ATem[facility] HospitalRAD[facility]ST, 1 VIEW, NON DEPT 2021-06-12 09:18:00Reason for exam:->sobShould this be performed at the bedside?->[facility] : 1950 Sex: MFINAL REPORT INDICATION: sob COMPARISON: 06/10/2021 x-ray TECHNIQUE: Single frontalview of the chest. FINDINGS: Lines, tubes, and devices: The feeding tube tip extends into the stomach and out of the [id number].Lungs and pleura: Scarring in the right upper lobe. No effusion.Heart and mediastinum: Normal heart size. Median sternotomy wires are present.Osseous structures: No acute abnormality.Other: None. IMPRESSION: No acute intrathoracic abnormality. Signed: [facility] Verified Date/Time: 06/12/2021 09:18:02 Reading Location: [facility] Radiology Reading Room [id number] 03:25:57 Test Item Value Reference Range Interpretation Comments MAGNESIUM (BEAKER) (test code = 2.6 mg/dL 1.6-2.6 627) Sustainability Specialist ID - AMY [id number] 03:25:57 Test Item Value Reference Range Interpretation Comments PHOSPHORUS (BEAKER) (test code = 1.8 mg/dL 2.3-4.7 L 604) Sustainability Specialist ID - AMY GBASIC METABOLIC [id number] 03:25:56 Test Item Value Reference Range Interpretation Comments SODIUM (BEAKER) 154 meq/L 136-145 H (test code = 381) POTASSIUM (BEAKER) 3.3 meq/L 3.5-5.1 L (test code = 379) CHLORIDE (BEAKER) 116 meq/L 98-107 H (test code = 382) CO2 (BEAKER) (test 27 meq/L 22-29 code = 355) BLOOD UREA NITROGEN 78 mg/dL 7-21 H (BEAKER) (test code = 354) CREATININE (BEAKER) 2.20 mg/dL 0.57-1.25 H (test code = 358) GLUCOSE RANDOM 149 mg/dL 70-105 H (BEAKER) (test code = 652) CALCIUM (BEAKER) 10.0 mg/dL 8.4-10.2 (test code = 697) EGFR (BEAKER) (test 30 mL/min/1.73 ESTIMA OZIEL GFR IS code = 1092) sq m NOT ACCURATE CREATININE CLEARANCE IN PREDICTING GLOMERULAR FILTRATION RATE . ESTIMATED GFR I S NOT APPLICABLE FOR DIALYSIS PATIEN TS. Sustainability Specialist ID - AMY GCBC W/PLT COUNT & AUTO [id number] 03:11:13 Test Item Value Reference Range Interpretation Comments WHITE BLOOD CELL COUNT (BEAKER) 13.5 K/ L 3.5-10.5 H (test code = 775) RED BLOOD CELL COUNT (BEAKER) 4.84 M/ L 4.63-6.08 (test code = 761) HEMOGLOBIN (BEAKER) (test code = 13.4 GM/DL 13.7-17.5 L 410) HEMATOCRIT (BEAKER) (test code = 42.2 % 40.1-51.0 411) MEAN CORPUSCULAR VOLUME (BEAKER) 87.2 fL 79.0-92.2 (test code = 753) MEAN CORPUSCULAR HEMOGLOBIN 27.7 pg 25.7-32.2 (BEAKER) (test code = 751) MEAN CORPUSCULAR HEMOGLOBIN CONC 31.8 GM/DL 32.3-36.5 L (BEAKER) (test code = 752) RED CELL DISTRIBUTION WIDTH 14.5 % 11.6-14.4 H (BEAKER) (test code = 412) PLATELET COUNT (BEAKER) (test 170 K/CU MM 150-450 code = 756) MEAN PLATELET VOLUME (BEAKER) 10.8 fL 9.4-12.4 (test code = 754) NUCLEATED RED BLOOD CELLS 0 /100 WBC 0-0 (BEAKER) (test code = 413) NEUTROPHILS RELATIVE PERCENT 78 % (BEAKER) (test code = 429) LYMPHOCYTES RELATIVE PERCENT 12 % (BEAKER) (test code = 430) MONOCYTES RELATIVE PERCENT 9 % (BEAKER) (test code = 431) EOSINOPHILS RELATIVE PERCENT 0 % (BEAKER) (test code = 432) BASOPHILS RELATIVE PERCENT 0 % (BEAKER) (test code = 437) NEUTROPHILS ABSOLUTE COUNT 10.56 K/ L 1.78-5.38 H (BEAKER) (test code = 670) LYMPHOCYTES ABSOLUTE COUNT 1.65 K/ L 1.32-3.57 (BEAKER) (test code = 414) MONOCYTES ABSOLUTE COUNT (BEAKER) 1.27 K/ L 0.30-0.82 H (test code = 415) EOSINOPHILS ABSOLUTE COUNT 0.00 K/ L 0.04-0.54 L (BEAKER) (test code = 416) BASOPHILS ABSOLUTE COUNT (BEAKER) 0.02 K/ L 0.01-0.08 (test code = 417) IMMATURE GRANULOCYTES-RELATIVE 0 % 0-1 PERCENT (BEAKER) (test code = 2801) BASIC METABOLIC [id number] 23:27:26 Test Item Value Reference Range Interpretation Comments SODIUM (BEAKER) 150 meq/L 136-145 H (test code = 381) POTASSIUM (BEAKER) 3.5 meq/L 3.5-5.1 Specimen slightly (test code = 379) hemolyzed CHLORIDE (BEAKER) 113 meq/L 98-107 H (test code = 382) CO2 (BEAKER) (test 26 meq/L 22-29 code = 355) BLOOD UREA NITROGEN 85 mg/dL 7-21 H (BEAKER) (test code = 354) CREATININE (BEAKER) 2.40 mg/dL 0.57-1.25 H Specimen slightly (test code = 358) hemolyzed GLUCOSE RANDOM 292 mg/dL 70-105 H (BEAKER) (test code = 652) CALCIUM (BEAKER) 9.8 mg/dL 8.4-10.2 (test code = 697) EGFR (BEAKER) (test 27 mL/min/1.73 ESTIMA OZIEL GFR IS code = 1092) sq m NOT ACCURATE CREATININE CLEARANCE IN PREDICTING GLOMERULAR FILTRATION RATE . ESTIMATED GFR I S NOT APPLICABLE FOR DIALYSIS PATIEN TS. Sustainability Specialist ID - DBPOCT-GLUCOSE [id number] 22:04:07 Test Item Value Reference Range Interpretation Comments POC-GLUCOSE METER 265 mg/dL 70-110 H : TESTED A T [facility] 6720 (BEAKER) (test code = [facility] [place], 1538) [address]: Sustainability Specialist/Techni salma ID = [id number] for DE KEISHA (V), CLIVE BASIC METABOLIC [id number] 21:43:55 Test Item Value Reference Range Interpretation Comments SODIUM (BEAKER) 147 meq/L 136-145 H (test code = 381) POTASSIUM (BEAKER) 3.0 meq/L 3.5-5.1 L (test code = 379) CHLORIDE (BEAKER) 108 meq/L 98-107 H (test code = 382) CO2 (BEAKER) (test 28 meq/L 22-29 code = 355) BLOOD UREA NITROGEN 84 mg/dL 7-21 H (BEAKER) (test code = 354) CREATININE (BEAKER) 2.50 mg/dL 0.57-1.25 H (test code = 358) GLUCOSE RANDOM 440 mg/dL 70-105 HH (BEAKER) (test code = 652) CALCIUM (BEAKER) 9.7 mg/dL 8.4-10.2 (test code = 697) EGFR (BEAKER) (test 26 mL/min/1.73 ESTIMA OZIEL GFR IS code = 1092) sq m NOT ACCURATE CREATININE CLEARANCE IN PREDICTING GLOMERULAR FILTRATION RATE . ESTIMATED GFR I S NOT APPLICABLE FOR DIALYSIS PATIEN TS. Sustainability Specialist ID - DBVitamin [id number] 20:56:20 Test Item Value Reference Range Interpretation Comments Vitamin B12 (test code = 515 pg/mL 477-987 4823-9) BANDAR (test code = BANDAR) Sustainability Specialist ID - DB Lab Interpretation (test Normal code = 31169-2) [facility] MonicaVITAMIN [id number] 20:56:20 Test Item Value Reference Range Interpretation Comments VITAMIN B12 (BEAKER) (test code = 515 pg/mL 213-816 774) Sustainability Specialist ID - DBUrea Nitrogen, random [id number] 19:31:10 Test Item Value Reference Range Interpretation Comments Urea Nitrogen, Ur 1288 mg/dL (test code = 3095-7) BANDAR (test code = Reference Range: No BANDAR) NormalsOperator ID - DB [facility] MonicaUREA NITROGEN, RANDOM [id number] 19:31:10 Test Item Value Reference Range Interpretation Comments UREA NITROGEN URINE (BEAKER) (test 1288 mg/dL code = 538) Reference Range: No NormalsOperator ID - DBChloride, random [id number] 19:31:05 Test Item Value Reference Range Interpretation Comments Chloride, Urine <20 meq/L (test code = 04879-0) BANDAR (test code = Reference Range: No BANDAR) NormalsOperator ID - DB [facility] MonicaCHLORIDE, RANDOM [id number] 19:31:05 Test Item Value Reference Range Interpretation Comments CHLORIDE URINE (BEAKER) (test code = < meq/L 682) Reference Range: No NormalsOperator ID - DBSodium, random [id number] 19:31:04 Test Item Value Reference Range Interpretation Comments Sodium Urine (test <20 meq/L code = 2955-3) BANDAR (test code = Reference Range: No BANDAR) NormalsOperator ID - [facility] [id number] 19:31:04 Test Item Value Reference Range Interpretation Comments SODIUM URINE (BEAKER) (test code = < meq/L 243) Reference Range: No NormalsOperator ID - DBCreatinine, random [id number] 19:30:58 Test Item Value Reference Range Interpretation Comments Creatinine, Ur 96.6 mg/dL (test code = 2161-8) BANDAR (test code = Reference Range: No BANDAR) NormalsOperator ID - DB [facility] MonicaCREATININE, RANDOM [id number] 19:30:58 Test Item Value Reference Range Interpretation Comments CREATININE URINE (BEAKER) (test 96.6 mg/dL code = 375) Reference Range: No NormalsOperator ID - DBUrinalysis with Microscopic If [id number] 19:25:42 Test Item Value Reference Range Interpretation Comments Color, UA (test code = Yellow 5778-6) Clarity, UA (test code = Cloudy 5767-9) Specific [place], UA (test 1.021 1.001-1.035 code = 5811-5) pH, UA (test code = 6.0 5.0-8.0 5803-2) Protein, UA (test code = 100 mg/dL Negative A 61173-6) Glucose, UA (test code = Negative Negative 365) Ketones, UA (test code = Negative Negative 2514-8) Bilirubin, UA (test code = Negative Negative 04605-8) Blood, UA (test code = Large Negative A 16906-3) Nitrite, UA (test code = Negative Negative 5802-4) Leukocytes, UA (test code Moderate Negative A = 5799-2) Urobilinogen, UA (test 0.2 mg/dL 0.2-1.0 code = 26591-2) Specimen Source (test code = 2795) BANDAR (test code = BANDAR) Sustainability Specialist ID - [auto]Sustainability Specialist ID - tech Lab Interpretation (test Abnormal code = 46590-3) [facility] MonicaUrinalysis Microscopic [id number] 19:25:42 Test Item Value Reference Range Interpretation Comments RBC, UA (test 41 See_Comment [Automated code = 75140-5) message] The system which generated this result transmitted reference range : /HPF. The refer ence range was not u sed to interpret th is result as normal/abnormal . WBC, UA (test 0 See_Comment [Automated code = 5821-4) message] The system which generated this result transmitted reference range : /HPF. The refer ence range was not u sed to interpret th is result as normal/abnormal . Bacteria, UA None Seen (test code = 69825-4) Mucus (test code Rare = 8247-9) Hyaline Casts, UA 12 See_Comment [Automate d (test code = message] The sy stem 34958-2) which generated this result transmitted reference range : /LPF. The refer ence range was not u sed to interpret th is result as normal/abnormal . Crystals, Urine None Seen (test code = 97014-7) Uric Acid Occasional Crystals (test code = 1583) BANDAR (test code = Sustainability Specialist ID - tech BANDAR) [facility] MonicaURINALYSIS WITH MICROSCOPIC IF [id number] 19:25:42 Test Item Value Reference Range Interpretation Comments COLOR (BEAKER) (test code = 470) Yellow CLARITY (BEAKER) (test code = 469) Cloudy SPECIFIC GRAVITY UA (BEAKER) (test 1.021 1.001-1.035 code = 468) PH UA (BEAKER) (test code = 467) 6.0 5.0-8.0 PROTEIN UA (BEAKER) (test code = 100 mg/dL Negative A 464) GLUCOSE UA (BEAKER) (test code = Negative Negative 365) KETONES UA (BEAKER) (test code = Negative Negative 371) BILIRUBIN UA (BEAKER) (test code = Negative Negative 462) BLOOD UA (BEAKER) (test code = 461) Large Negative A NITRITE UA (BEAKER) (test code = Negative Negative 465) LEUKOCYTE ESTERASE UA (BEAKER) Moderate Negative A (test code = 466) UROBILINOGEN UA (BEAKER) (test code 0.2 mg/dL 0.2-1.0 = 463) SOURCE(BEAKER) (test code = 2795) Sustainability Specialist ID - [auto]Sustainability Specialist ID - techURINALYSIS [id number] 19:25:42 Test Item Value Reference Range Interpretation Comments RBC UA (BEAKER) (test code = 519) 41 /HPF WBC UA (BEAKER) (test code = 520) 0 /HPF BACTERIA (BEAKER) (test code = None Seen 517) MUCUS (BEAKER) (test code = 1574) Rare HYALINE CASTS (BEAKER) (test code 12 /LPF = 514) CRYSTALS, URINE (BEAKER) (test None Seen code = 1521) URIC ACID CRYSTALS (BEAKER) (test Occasional code = 1583) Sustainability Specialist ID - techPOCT-GLUCOSE [id number] 17:58:19 Test Item Value Reference Range Interpretation Comments POC-GLUCOSE METER 190 mg/dL 70-110 H : TESTED A T [facility] 6720 (BEAKER) (test code = [facility], 1538) [address]: Sustainability Specialist/Techni salma ID = [id number] for Mallory hn (contract), Jea nne POCT-GLUCOSE [id number] 15:47:31 Test Item Value Reference Range Interpretation Comments POC-GLUCOSE METER 204 mg/dL 70-110 H : TESTED A T [facility] 6720 (BEAKER) (test code = [facility], 1538) [address]: Sustainability Specialist/Techni salma ID = [id number] for Mallory hn (contract), Jea nne T4, [id number] 15:21:27 Test Item Value Reference Range Interpretation Comments Free T4 (test code = 3024-7) 1.32 ng/dL 0.70-1.48 BANDAR (test code = BANDAR) Sustainability Specialist ID - DB Lab Interpretation (test Normal code = 64964-6) [facility] MonicaT4, [id number] 15:21:27 Test Item Value Reference Range Interpretation Comments FREE T4 (BEAKER) (test code = 655) 1.32 ng/dL 0.70-1.48 Sustainability Specialist ID - DENYSSH/FREE T4 IF [id number] 14:37:26 Test Item Value Reference Range Interpretation Comments THYROID STIMULATING HORMONE 0.316 uIU/mL 0.350-4.940 L (BEAKER) (test code = 772) Sustainability Specialist ID - JULIETTE LB-TYPE NATRIURETIC FACTOR (BNP)2021-06-11 14:10:54 Test Item Value Reference Range Interpretation Comments B-TYPE NATRIURETIC PEPTIDE (BEAKER) 265 pg/mL 0-100 H (test code = 700) Sustainability Specialist ID - JULIETTE LRAD, ABDOMEN/KUB, 1 VIEW [id number] 11:10:00Reason for exam:->feeding tubeShould this be performed at the bedside?->Yes [facility] 1950 Sex: MFINAL REPORT TECHNIQUE: One view of the abdomen. INDICATION: 70-year-old man withfeeding tube. COMPARISON: Abdomen radiographs from less than one hour prior. IMPRESSION:Feeding tubetip terminates over the expected region of the gastroduodenal junction. Nonobstructive bowel gas pattern. Otherwise, no significant change since prior abdomen radiographs from less than one hour prior.Signed: Francisco Lilly Verified Date/Time: 06/11/2021 11:10:19 Reading Location: [address] Body Reading Room RAD, ABDOMEN/KUB, 1 VIEW AP 2021-06-11 11:08:00Reason for exam:->feeding tubeShould this be performed at the bedside?->Yes [facility] : 1950 Sex: MFINAL REPORT TECHNIQUE: One view of the abdomen. INDICATION: 70-year-old man withfeeding tube. COMPARISON: None. IMPRESSION:On the first image, the feeding tube terminates over the expected region of the gastric body. On the second image, incompletely visualized feeding tube appears to terminate over the expected region of the gastroduodenal junction. Nonobstructive bowel gas patte rn. Otherwise, no significant change since abdomen radiographs from less than one hour prior. Signed: Francisco Lilly Verified Date/Time: 06/11/2021 11:08:56 Reading Location: [address] Body Reading Room Y ABDOMEN/KUB, 1 VIEW [id number] 11:02:00Reason for exam:->feeding tube placement [facility] : 1950 Sex: MFINAL REPORT Abdomen , one view History:Feeding tube placement Comparison:none Findings: A feeding tube coiled in the gastric antrum and terminates near the fundus. Bowel gas patternappears nonobstructive. Signed: Dennis Cosme MDReport Verified Date/Time: 06/11/2021 11:02:08 [id number] 10:58:55 Test Item Value Reference Range Interpretation Comments Ammonia (test code = 52 See_Comment [Autom ated message] 06660-2) The system Mobi generated this result transmitted ref erence range: 18 - 72 mol/L. The re ference range was not u sed to interpret this result as normal/abnor mal. Lab Interpretation (test Normal code = 37596-5) [facility]2022-02-06 10:58:55 Test Item Value Reference Range Interpretation Comments AMMONIA (BEAKER) (test code = 348) 52 mol/L 18-72 BASIC METABOLIC [id number] 07:22:06 Test Item Value Reference Range Interpretation Comments SODIUM (BEAKER) 150 meq/L 136-145 H (test code = 381) POTASSIUM (BEAKER) 3.8 meq/L 3.5-5.1 Specimen slightly (test code = 379) hemolyzed CHLORIDE (BEAKER) 114 meq/L 98-107 H (test code = 382) CO2 (BEAKER) (test 24 meq/L 22-29 code = 355) BLOOD UREA NITROGEN 81 mg/dL 7-21 H (BEAKER) (test code = 354) CREATININE (BEAKER) 2.37 mg/dL 0.57-1.25 H Specimen slightly (test code = 358) hemolyzed GLUCOSE RANDOM 234 mg/dL 70-105 H (BEAKER) (test code = 652) CALCIUM (BEAKER) 10.0 mg/dL 8.4-10.2 (test code = 697) EGFR (BEAKER) (test 27 mL/min/1.73 ESTIMA OZIEL GFR IS code = 1092) sq m NOT ACCURATE CREATININE CLEARANCE IN PREDICTING GLOMERULAR FILTRATION RATE . ESTIMATED GFR I S NOT APPLICABLE FOR DIALYSIS PATIEN TS. Sustainability Specialist ID - JULIETTE [id number] 07:06:32 Test Item Value Reference Range Interpretation Comments PHOSPHORUS (BEAKER) 3.2 mg/dL 2.3-4.7 Specimen slightly (test code = 604) hemolyzed Sustainability Specialist ID - JULIETTE [id number] 07:06:31 Test Item Value Reference Range Interpretation Comments MAGNESIUM (BEAKER) 2.6 mg/dL 1.6-2.6 Specimen slightly (test code = 627) hemolyzed Sustainability Specialist ID - JULIETTE LPOCT-GLUCOSE [id number] 06:53:00 Test Item Value Reference Range Interpretation Comments POC-GLUCOSE METER 209 mg/dL 70-110 H : TESTED Jake [facility] 6720 (BEAKER) (test code = [facility] [place], 1538) [address]: Sustainability Specialist/Techni salma ID = [id number] for An dayanara (contract)Trang CBC W/PLT COUNT & AUTO [id number] 06:50:46 Test Item Value Reference Range Interpretation Comments WHITE BLOOD CELL COUNT (BEAKER) 8.3 K/ L 3.5-10.5 (test code = 775) RED BLOOD CELL COUNT (BEAKER) 5.15 M/ L 4.63-6.08 (test code = 761) HEMOGLOBIN (BEAKER) (test code = 14.4 GM/DL 13.7-17.5 410) HEMATOCRIT (BEAKER) (test code = 45.6 % 40.1-51.0 411) MEAN CORPUSCULAR VOLUME (BEAKER) 88.5 fL 79.0-92.2 (test code = 753) MEAN CORPUSCULAR HEMOGLOBIN 28.0 pg 25.7-32.2 (BEAKER) (test code = 751) MEAN CORPUSCULAR HEMOGLOBIN CONC 31.6 GM/DL 32.3-36.5 L (BEAKER) (test code = 752) RED CELL DISTRIBUTION WIDTH 14.5 % 11.6-14.4 H (BEAKER) (test code = 412) PLATELET COUNT (BEAKER) (test 175 K/CU MM 150-450 code = 756) MEAN PLATELET VOLUME (BEAKER) 10.7 fL 9.4-12.4 (test code = 754) NUCLEATED RED BLOOD CELLS 0 /100 WBC 0-0 (BEAKER) (test code = 413) NEUTROPHILS RELATIVE PERCENT 80 % (BEAKER) (test code = 429) LYMPHOCYTES RELATIVE PERCENT 11 % (BEAKER) (test code = 430) MONOCYTES RELATIVE PERCENT 9 % (BEAKER) (test code = 431) EOSINOPHILS RELATIVE PERCENT 0 % (BEAKER) (test code = 432) BASOPHILS RELATIVE PERCENT 0 % (BEAKER) (test code = 437) NEUTROPHILS ABSOLUTE COUNT 6.59 K/ L 1.78-5.38 H (BEAKER) (test code = 670) LYMPHOCYTES ABSOLUTE COUNT 0.89 K/ L 1.32-3.57 L (BEAKER) (test code = 414) MONOCYTES ABSOLUTE COUNT (BEAKER) 0.73 K/ L 0.30-0.82 (test code = 415) EOSINOPHILS ABSOLUTE COUNT 0.00 K/ L 0.04-0.54 L (BEAKER) (test code = 416) BASOPHILS ABSOLUTE COUNT (BEAKER) 0.01 K/ L 0.01-0.08 (test code = 417) IMMATURE GRANULOCYTES-RELATIVE 0 % 0-1 PERCENT (BEAKER) (test code = 2801) POCT-GLUCOSE [id number] 00:30:13 Test Item Value Reference Range Interpretation Comments POC-GLUCOSE METER 224 mg/dL 70-110 H : TESTED A T [facility] (BEAKER) (test code = [facility] [place], 1538) [address]: Sustainability Specialist/Techni salma ID = [id number] for An dayanara (contract)Trang V-[id number] 19:24:58 Test Item Value Reference Range Interpretation Comments D-Dimer, Quant (test 0.89 See_Comment H [Autom ated code = 63573-6) message] The system which generated this result transmitted reference range : <0.50 MG/L FEU. The reference range was not used to interpr et this result as normal/abnormal . BANDAR (test code = BANDAR) Intended Use: The D-Dimer Assay can be used to aid in the diagnosis of Deep Vein Thrombosis (DVT) and Pulmonary Embolism Disease (PED).In patients with low pre-test probability, various studies concerning STA Liatest D-dimer test have reported that with a cutoff value of 0.50 MG/L FEU, the Negative Predictive Value (NPV) regarding the exclusion of thrombosis is within 95-100% range. Lab Interpretation Abnormal (test code = 72914-8) [facility] MonicaD-[id number] 19:24:58 Test Item Value Reference Range Interpretation Comments D-DIMER QUANTITATIVE (BEAKER) 0.89 MG/L FEU <0.50 H (test code = 671) Intended Use: The D-Dimer Assay can be used to aid in the diagnosis of Deep Vein Thrombosis (DVT) and Pulmonary Embolism Disease (PED).In patients with low pre- test probability, various studies concerning STA Liatest D-dimer test have reported that with a cutoff value of 0.50 MG/L FEU, the Negative Predictive Value (NPV) regarding the exclusion of thrombosis is within 95-100% range. PT/[id number] 19:23:56 Test Item Value Reference Range Interpretation Comments PROTIME (BEAKER) (test 14.3 seconds 11.9-14.2 H code = 759) INR (BEAKER) (test 1.13 See_Comment [Automat ed code = 370) message] The sy stem which generated this result transmitted reference range : <=5.90. The reference range was not used to interpret this result as normal/abnormal . PARTIAL THROMBOPLASTIN 30.5 seconds 22.5-36.0 TIME (BEAKER) (test code = 760) RECOMMENDED COUMADIN/WARFARIN INR THERAPY RANGESSTANDARD DOSE: 2.0 - 3.0 Includes: PROPHYLAXIS for venous thrombosis, systemic embolization; TREATMENT for venous thrombosis and/or pulmonary embolus.HIGH RISK: Target INR is 2.5-3.5 for patients with mechanical heart valves.[id number] 19:22:16 Test Item Value Reference Range Interpretation Comments PARTIAL THROMBOPLASTIN TIME 28.0 seconds 22.5-36.0 (BEAKER) (test code = 760) [id number] 19:22:15 Test Item Value Reference Range Interpretation Comments Fibrinogen (test code = 3255-7) 423 mg/dl 225-434 Lab Interpretation (test code = Normal 76787-4) [facility] MonicaFIBRINOGEN2022-02-05 19:22:15 Test Item Value Reference Range Interpretation Comments FIBRINOGEN LEVEL (BEAKER) (test 423 mg/dl 225-434 code = 658) PROTHROMBIN TIME/[id number] 19:21:35 Test Item Value Reference Range Interpretation Comments PROTIME (BEAKER) 14.1 seconds 11.9-14.2 (test code = 759) INR (BEAKER) (test 1.11 See_Comment [Automat ed message] code = 370) The system Mobi generated this result transmitted ref erence range: <=5.90. The reference range was not used to int erpret this result as normal/abnormal . RECOMMENDED COUMADIN/WARFARIN INR THERAPY RANGESSTANDARD DOSE: 2.0 - 3.0 Includes: PROPHYLAXIS for venous thrombosis, systemic embolization; TREATMENT for venous thrombosis and/or pulmonary embolus.HIGH RISK: Target INR is 2.5-3.5 for patients with mechanical heart valves.COMPREHENSIVE METABOLIC PANEL 2021-06-10 19:21:09 Test Item Value Reference Range Interpretation Comments TOTAL PROTEIN 7.5 gm/dL 6.0-8.3 Specimen sligh tly (BEAKER) (test code = hemoly zed 770) ALBUMIN (BEAKER) 4.0 g/dL 3.5-5.0 Specimen sl ightly (test code = 1145) hemolyzed ALKALINE PHOSPHATASE 86 U/L 40-150 (BEAKER) (test code = 346) BILIRUBIN TOTAL 0.6 mg/dL 0.2-1.2 Specimen sli ghtly (BEAKER) (test code = hemoly zed 377) SODIUM (BEAKER) (test 149 meq/L 136-145 H code = 381) POTASSIUM (BEAKER) 3.7 meq/L 3.5-5.1 Specimen slightly (test code = 379) hemolyzed CHLORIDE (BEAKER) 111 meq/L 98-107 H (test code = 382) CO2 (BEAKER) (test 25 meq/L 22-29 code = 355) BLOOD UREA NITROGEN 75 mg/dL 7-21 H (BEAKER) (test code = 354) CREATININE (BEAKER) 2.29 mg/dL 0.57-1.25 H Specimen slightly (test code = 358) hemolyzed GLUCOSE RANDOM 204 mg/dL 70-105 H (BEAKER) (test code = 652) CALCIUM (BEAKER) 10.3 mg/dL 8.4-10.2 H (test code = 697) AST (SGOT) (BEAKER) 51 U/L 5-34 H Specimen slightly (test code = 353) hemolyzed ALT (SGPT) (BEAKER) 39 U/L 6-55 Specimen slightly (test code = 347) hemolyzed EGFR (BEAKER) (test 28 mL/min/1.73 ESTIMA OZIEL GFR IS code = 1092) sq m NOT ACCURATE CREATININE CLEARANCE IN PREDICTING GLOMERULAR FILTRATION RATE . ESTIMATED GFR I S NOT APPLICABLE FOR DIALYSIS PATIEN TS. Sustainability Specialist ID - [id number] 19:20:38 Test Item Value Reference Range Interpretation Comments PHOSPHORUS (BEAKER) 3.3 mg/dL 2.3-4.7 Specimen slightly (test code = 604) hemolyzed Sustainability Specialist ID - DBC-REACTIVE [id number] 19:20:38 Test Item Value Reference Range Interpretation Comments C-REACTIVE PROTEIN (BEAKER) (test 0.87 mg/dL 0.00-0.50 H code = 676) Sustainability Specialist ID - [id number] 19:20:37 Test Item Value Reference Range Interpretation Comments MAGNESIUM (BEAKER) 2.5 mg/dL 1.6-2.6 Specimen slightly (test code = 627) hemolyzed Sustainability Specialist ID - DBLACTIC ACID, [id number] 19:14:55 Test Item Value Reference Range Interpretation Comments LACTATE BLOOD VENOUS 1.50 mmol/L 0.50-2.20 Specime n slightly (2) (BEAKER) (test hemolyzed code = 2872) Sustainability Specialist ID - DBCBC W/PLT COUNT & AUTO [id number] 19:01:49 Test Item Value Reference Range Interpretation Comments WHITE BLOOD CELL COUNT (BEAKER) 13.7 K/ L 3.5-10.5 H (test code = 775) RED BLOOD CELL COUNT (BEAKER) 5.36 M/ L 4.63-6.08 (test code = 761) HEMOGLOBIN (BEAKER) (test code = 14.7 GM/DL 13.7-17.5 410) HEMATOCRIT (BEAKER) (test code = 46.3 % 40.1-51.0 411) MEAN CORPUSCULAR VOLUME (BEAKER) 86.4 fL 79.0-92.2 (test code = 753) MEAN CORPUSCULAR HEMOGLOBIN 27.4 pg 25.7-32.2 (BEAKER) (test code = 751) MEAN CORPUSCULAR HEMOGLOBIN CONC 31.7 GM/DL 32.3-36.5 L (BEAKER) (test code = 752) RED CELL DISTRIBUTION WIDTH 14.7 % 11.6-14.4 H (BEAKER) (test code = 412) PLATELET COUNT (BEAKER) (test 220 K/CU MM 150-450 code = 756) MEAN PLATELET VOLUME (BEAKER) 10.7 fL 9.4-12.4 (test code = 754) NUCLEATED RED BLOOD CELLS 0 /100 WBC 0-0 (BEAKER) (test code = 413) NEUTROPHILS RELATIVE PERCENT 78 % (BEAKER) (test code = 429) LYMPHOCYTES RELATIVE PERCENT 10 % (BEAKER) (test code = 430) MONOCYTES RELATIVE PERCENT 11 % (BEAKER) (test code = 431) EOSINOPHILS RELATIVE PERCENT 0 % (BEAKER) (test code = 432) BASOPHILS RELATIVE PERCENT 0 % (BEAKER) (test code = 437) NEUTROPHILS ABSOLUTE COUNT 10.72 K/ L 1.78-5.38 H (BEAKER) (test code = 670) LYMPHOCYTES ABSOLUTE COUNT 1.40 K/ L 1.32-3.57 (BEAKER) (test code = 414) MONOCYTES ABSOLUTE COUNT (BEAKER) 1.48 K/ L 0.30-0.82 H (test code = 415) EOSINOPHILS ABSOLUTE COUNT 0.00 K/ L 0.04-0.54 L (BEAKER) (test code = 416) BASOPHILS ABSOLUTE COUNT (BEAKER) 0.01 K/ L 0.01-0.08 (test code = 417) IMMATURE GRANULOCYTES-RELATIVE 1 % 0-1 PERCENT (BEAKER) (test code = 2801) BLOOD GAS, [id number] 18:54:59 Test Item Value Reference Range Interpretation Comments PH ARTERIAL (BEAKER) (test code = 7.49 7.35-7.45 H 383) PCO2 ARTERIAL (BEAKER) (test code 35 mm Hg 35-45 = 384) PO2 ARTERIAL (BEAKER) (test code = 87 mm Hg 80-90 385) O2 SATURATION ARTERIAL (BEAKER) 97.1 % 96.0-97.0 H (test code = 386) HCO3 ARTERIAL (BEAKER) (test code 26 mmol/L 21-29 = 388) BASE EXCESS ARTERIAL (BEAKER) 3.0 mmol/L -2.0-3.0 (test code = 387) PATIENT TEMPERATURE (BEAKER) (test 37.5 code = 1818) FIO2 (BEAKER) (test code = 1819) 28.0 RAD, CHEST, 1 VIEW, NON [id number] 17:50:00Reason for exam:->admission CXR, covidShould this be performed at the bedside?->Yes [facility] : 1950 Sex: MFINAL REPORT Exam: RAD, CHEST, 1 VIEW, NON DEPTDate: 06/10/2021 5:49 PM Indication:Covid Comparison: CXR 01/23/18 FINDINGS: Lines/Tubes:None Lungs:The lungs are well inflated. No focalconsolidation or pulmonary edema. Pleura:No pleural effusion. No pneumothorax. Heart/Mediastinum:Thecardiomediastinal silhouette is normal in size and contour. Bones/Soft Tissues: No acute osseous injury. Sternotomy wires in tact. Abdomen: No free air below the diaphragm. IMPRESSION:No focal pneumonia or pulmonary edema. Signed: Shanti Johnson Verified Date/Time: 06/10/2021 17:50:26 Reading Location: [address] Body Reading Room OSE BEDSIDE [id number] 12:07:00 Test Item Value Reference Range Interpretation Comments GLUCOSE BEDSIDE TESTING (test code 137 MG/DL 60-99 H = GLUBED) GLYCOSYLATED HEMOGLOBIN [id number] 11:19:00 Test Item Value Reference Range Interpretation Comments GLYCOSYLATED 6.0 % 4.8-5.9 H Any condition t hat HEMOGLOBIN (HA1C) shortens e rythocyte (test code = survival or dec reasesmean GLYHGB) erythrocyte age (e.g., recovery from a cute blood loss,hemolytic anemia) will falsely lo wer HGBA1c resultsregardle ss of the method used. HG BA1c results from rajni lipscomb HbSS, HbCC, and [...] H (test code = MBG) BASIC METABOLIC [id number] 07:59:00 Test Item Value Reference Range Interpretation [...] LIPOPROTEIN LDL (test 95 MG/DL 0-99 N OPTIM AL.........<100 code = LDL) mg/dLNEAR OPTIMAL/ABOVE OPTIMAL........ .100-12 9 mg/dL BORDERL INE HIGH.........13 0-159 mg/dL HIGH.........16 0-189 mg/dL VERY HIGH.........>/ = 190 mg/dL PATIENT REFUSED; NORM Soto (STEPHEN)BASIC METABOLIC [id number] 07:50:00 Test Item Value Reference Range Interpretation [...] = LDL) PATIENT REFUSED; PER ANTONIO MOORE)PROTHROMBIN [id number] 07:46:00 Test Item Value Reference Range Interpretation Comments PROTHROMBIN TIME PATIENT 13.3 9.5-12.7 H (test code = PTP) INTERNATIONAL NORMAL RATIO 1.2 0.86-1.14 H T he INR is to be used (test code = INR) only for m onitoring oral anticoagulantth erapy. INDICATION INR VALUE ------- ------- -----1. Prophylaxis, de ep venous thrombos is, including high risk surgery. 2.0 - 3.0 2. Prophylaxis, de ep venous thrombos is, hip surgery, treatm ent for deep venous thr ombosis or pulmonary prevention of s ystemic embolism in pat ients with valvular h eart disease, atrial fibrillation, t issue heart valve, or acute myocardial infa rction. 2.0 - 3.0 3. Mechanical pros thesis heart valves, recurrent syste megan embolism. 3.0 - 4.5 PATIENT REFUSED; PER:ANTONIO MOORE)PTT [id number] 07:46:00 Test Item Value Reference Range Interpretation Comments PTT ACTIVATED (test code = APTT) 39.0 SECONDS 25.1-36.5 H PATIENT REFUSED; PER:ANTONIO MOORE)CBC W/AUTO [id number] 07:35:00 Test Item Value Reference Range Interpretation [...] PATIENT REFUSED; PER ANTONIO Soto (RN)GLUCOSE BEDSIDE [id number] 04:56:00 Test Item Value Reference Range Interpretation Comments GLUCOSE BEDSIDE TESTING (test code 123 MG/DL 60-99 H = GLUBED) GLUCOSE BEDSIDE [id number] 18:50:00 Test Item Value Reference Range Interpretation Comments GLUCOSE BEDSIDE TESTING (test code 221 MG/DL 60-99 H = GLUBED) GLUCOSE BEDSIDE [id number] 15:43:00 Test Item Value Reference Range Interpretation Comments GLUCOSE BEDSIDE TESTING (test code 126 MG/DL 60-99 H = GLUBED) GLUCOSE BEDSIDE [id number] 11:35:00 Test Item Value Reference Range Interpretation Comments GLUCOSE BEDSIDE TESTING (test code 161 MG/DL 60-99 H = GLUBED) GLYCOSYLATED HEMOGLOBIN [id number] 10:30:00 Test Item Value Reference Range Interpretation Comments GLYCOSYLATED 6.0 % 4.8-5.9 H Any condition t hat HEMOGLOBIN (HA1C) shortens e rythocyte (test code = survival or dec reasesmean GLYHGB) erythrocyte age (e.g., recovery from a cute blood loss,hemolytic anemia) will falsely lo wer HGBA1c resultsregardle ss of the method used. HG BA1c results from rajni lipscomb HbSS, HbCC, and [...] H (test code = MBG) COMPREHENSIVE METABOLIC [id number] 09:27:00 Test Item Value Reference Range Interpretation [...] newinformation regarding the potential i nterference ofEltrombopag ( a bone marrow stimulan t used to treatthrombocyt onmenia and aplastic anemia ) with specific assays on the Vitros 5600 of which Total Protein is one of thoseassays per formed in our lab.[facility] determined that Eltrombopag does interfere with Vitros Total Protein asfollowsEltrom bopag Interference fo r Vitros Product Total Protein:======= Eltrombopag Max Observed Av g. BiasConcentrati on Concentration Concentration== ==== 2.5 mg/dl 6.0 g/dl +0.41 +0.34 3.5 mg/dl 6.0 g /dl +0.50 +0.45 5 mg/dl 6 .0 g/dl +0.73 +0.65 2.5 mg/dl 8.0 g/dl +0.44 +0.4 1 3.5 mg/dl 8.0 g/dl +0.55 +0.52 5 mg/dl 8.0 g/dl +0.86 +0.77 ALBUMIN (test 4.1 G/DL 3.5-5.0 N code = ALB) CALCIUM (test 10.3 MG/DL 8.4-10.2 H code = CA) BILIRUBIN TOTAL 0.6 MG/DL 0.2-1.3 N Eltrombopag Interference (test code = for Vitros Prod uct TBil, BILT) BuBc: Assa y Eltrombopag Yoselyn lyte/ Max Observed Avg. B ias Concentration C oncentration Concentration== ====TBil 7mg/dl TBil/ 1. 2mg/dl +0.23mg.dl +0.2 0mg/dlBuBc 3.5mg/dl Bu/0.8 mg/dl +0.25mg/dl +0.2 4mg/dlBuBc 7 mg/dl Bu/14.2mg /dl +0.38mg/dl +0.2 5mg/dlBuBc 5mg/dl Bc/0mg/d l +0.25mg/dl +0.15mg/dlBuBc 3.5mg/dl Bc/2.8mg/dl +0. 25mg/dl +0.23mg/dl SGOT/AST (test 23 UNITS/L 17-59 N code = AST) SGPT/ALT (test 15 UNITS/L <50 code = ALT) ALKALINE 87 UNITS/L 38-126 N PHOSPHATASE (test code = ALKP) [id number] 09:27:00 Test Item Value Reference Range Interpretation Comments TROPONIN-I (test code = TROPI) 0.089 NG/ML 0.012-0.033 H T4 [id number] 09:07:00 Test Item Value Reference Range Interpretation Comments T4 FREE (test code = T4F) 1.5 NG/DL 0.78-2.19 N Specimen comments: please run from tsh previously drawnCOMPREHENSIVE METABOLIC [id number] 08:51:00 Test Item Value Reference Range Interpretation [...] newinformation regarding the potential i nterference ofEltrombopag ( a bone marrow stimulan t used to treatthrombocyt onmenia and aplastic anemia ) with specific assays on the Vitros 5600 of which Total Protein is one of thoseassays per formed in our lab.Interfe rence testing perform ed at [facility] determined that Eltrombopag does interfere with Vitros Total Protein asfollowsEltrom bopag Interference fo r Vitros Product Total Protein:======= Eltrombopag Max Observed Av g. BiasConcentrati on Concentration Concentration== ==== 2.5 mg/dl 6.0 g/dl +0.41 +0.34 3.5 mg/dl 6.0 g /dl +0.50 +0.45 5 mg/dl 6 .0 g/dl +0.73 +0.65 2.5 mg/dl 8.0 g/dl +0.44 +0.4 1 3.5 mg/dl 8.0 g/dl +0.55 +0.52 5 mg/dl 8.0 g/dl +0.86 +0.77 ALBUMIN (test 4.1 G/DL 3.5-5.0 N code = ALB) CALCIUM (test 10.3 MG/DL 8.4-10.2 H code = CA) BILIRUBIN TOTAL 0.6 MG/DL 0.2-1.3 N Eltrombopag Interference (test code = for Vitros Prod uct TBil, BILT) BuBc: Assa y Eltrombopag Yoselyn lyte/ Max Observed Avg. B ias Concentration C oncentration Concentration== ====TBil 7mg/dl TBil/ 1. 2mg/dl +0.23mg.dl +0.2 0mg/dlBuBc 3.5mg/dl Bu/0.8 mg/dl +0.25mg/dl +0.2 4mg/dlBuBc 7 mg/dl Bu/14.2mg /dl +0.38mg/dl +0.2 5mg/dlBuBc 5mg/dl Bc/0mg/d l +0.25mg/dl +0.15mg/dlBuBc 3.5mg/dl Bc/2.8mg/dl +0. 25mg/dl +0.23mg/dl SGOT/AST (test 23 UNITS/L 17-59 N code = AST) SGPT/ALT (test 15 UNITS/L <50 code = ALT) ALKALINE 87 UNITS/L 38-126 N PHOSPHATASE (test code = ALKP) [id number] 08:51:00 Test Item Value Reference Range Interpretation Comments TROPONIN-I (test code = TROPI) NG/ML 0.0-0.045 CBC W/AUTO [id number] 08:36:00 Test Item Value Reference Range Interpretation [...] 0.00 K/mm3 0.0-0.1 N NRBC#) GLUCOSE BEDSIDE [id number] 07:36:00 Test Item Value Reference Range Interpretation Comments GLUCOSE BEDSIDE TESTING (test code 178 MG/DL 60-99 H = GLUBED) URINALYSIS [id number] 04:39:00 Test Item Value Reference Range Interpretation [...] UACULT) Criteria SOURCE OF URINE: CLEAN CATCHURINALYSIS [id number] 04:35:00 Test Item Value Reference Range Interpretation [...] SOURCE OF URINE: CLEAN CATCHTSH REFLEX TO [id number] 04:06:00 Test Item Value Reference Range Interpretation Comments TSH REFLEX TO FT4 0.391 MIU/L 0.65-4.68 L Please be aware that (test code = bias results fo r TSH TSHREFLEX) may occur forpa tient who are taking Biotin supplements. [id number] 04:06:00 Test Item Value Reference Range Interpretation Comments MAGNESIUM (test code = MAG) 1.8 MG/DL 1.6-2.3 N LIPOPROTEIN LDL [id number] 04:06:00 Test Item Value Reference Range Interpretation Comments LIPOPROTEIN LDL DIRECT 92 mg/dL 100-129 L ===== (test code = LDLDIR) ======= ==Refe rence Interval: mg/dL mmol/L--------- ------ ------ ------ --Optimal <100 <2.6Near/above optimal 100-129 2.6-3.3Borderli ne High 130-159 3.4-4.1High 160 -189 4.1-4.9Very Hig h >=190 >=4.9==== ===== This LDL result is a direct measurement.=== ====== [id number] 04:06:00 Test Item Value Reference Range Interpretation Comments TROPONIN-I (test code = TROPI) 0.075 NG/ML 0.012-0.033 H [id number] 03:48:00 Test Item Value Reference Range Interpretation Comments MAGNESIUM (test code = MAG) 1.8 MG/DL 1.6-2.3 N LIPOPROTEIN LDL [id number] 03:48:00 Test Item Value Reference Range Interpretation Comments LIPOPROTEIN LDL DIRECT (test code = mg/dL 100-129 LDLDIR) [id number] 03:48:00 Test Item Value Reference Range Interpretation Comments TROPONIN-I (test code = TROPI) 0.075 NG/ML 0.012-0.033 H [id number] 03:38:00 Test Item Value Reference Range Interpretation Comments MAGNESIUM (test code = MAG) 1.8 MG/DL 1.6-2.3 N [id number] 03:38:00 Test Item Value Reference Range Interpretation Comments TROPONIN-I (test code = TROPI) NG/ML 0.0-0.045 GLUCOSE BEDSIDE [id number] 23:56:00 Test Item Value Reference Range Interpretation Comments GLUCOSE BEDSIDE TESTING (test code 211 MG/DL 60-99 H = GLUBED) HEMOGLOBIN [id number] 09:40:00 Test Item Value Reference Range Interpretation Comments HEMOGLOBIN A1C (BEAKER) (test code = 6.1 % 4.3-6.1 368) RAD, CHEST, 1 VIEW, NON [id number] 09:36:00Reason for exam:->sobShould this be performed at the bedside?->YesFINAL REPORT Chest one view compared to January 22 Discussion: There is cardiac prominence and interstitial congestion. There is linear opacity in both lower lungs. No effusion or pneumothorax. Signed: Wilmar Tran Verified Date/Time: 01/23/2018 09:36:57 Reading Location: [facility] Radiology Reading Room POCT-GLUCOSE [id number] 08:04:00 Test Item Value Reference Range Interpretation Comments POC-GLUCOSE METER 176 mg/dL 70-110 H TESTED AT [facility] [address] (BEAKER) (test code = [place] 1538) [id number] 06:49:00 Test Item Value Reference Range Interpretation Comments MAGNESIUM (BEAKER) 2.1 mg/dL 1.6-2.6 Specimen slightly (test code = 627) hemolyzed BASIC METABOLIC [id number] 06:49:00 Test Item Value Reference Range Interpretation [...] 697) EGFR (BEAKER) (test 67 mL/min/1.73 ESTIMA OZIEL GFR IS code = 1092) sq m NOT ACCURATE CREATININE CLEARANCE IN PREDICTING GLOMERULAR FILTRATION RATE . ESTIMATED GFR I S NOT APPLICABLE FOR DIALYSIS PATIEN TS. CBC W/PLT COUNT & AUTO [id number] 06:30:00 Test Item Value Reference Range Interpretation [...] PERCENT (BEAKER) (test code = 2801) POCT-GLUCOSE [id number] 22:19:00 Test Item Value Reference Range Interpretation Comments POC-GLUCOSE METER 235 mg/dL 70-110 H TESTED AT [facility] [address] ([facility]) (test code = [place] 1538) [address] TROPONIN [id number] 17:45:00 Test Item Value Reference Range Interpretation Comments TROPONIN I ([facility]) (test code = 0.53 ng/mL 0.00-0.03 397) [...] 0-100 H (BEAKER) (test code = 700) [id number] 17:35:00 Test Item Value Reference Range Interpretation Comments MAGNESIUM (BEAKER) (test code = 1.9 mg/dL 1.6-2.6 627) COMPREHENSIVE METABOLIC [id number] 17:35:00 Test Item Value Reference Range Interpretation [...] 347) EGFR (BEAKER) (test 64 mL/min/1.73 ESTIMA OZIEL GFR IS code = 1092) sq m NOT ACCURATE CREATININE CLEARANCE IN PREDICTING GLOMERULAR FILTRATION RATE . ESTIMATED GFR I S NOT APPLICABLE FOR DIALYSIS PATIEN TS. LIPID [id number] 17:35:00 Test Item Value Reference Range Interpretation Comments TRIGLYCERIDES (BEAKER) (test code = 91 mg/dL 540) CHOLESTEROL (BEAKER) (test code = 127 mg/dL 631) HDL CHOLESTEROL (BEAKER) (test code 26 mg/dL = 976) LDL CHOLESTEROL CALCULATED (BEAKER) 83 mg/dL (test code = 633) Triglyceride Reference Range: Low Risk <150 Borderline 150-199 High Risk 200- 499 Very High Risk >=500Cholesterol Reference Range: Low Risk <200 Borderline 200-239 High Risk >240HDL Cholesterol Reference Range: Low Risk >=60 High Risk <40LDL Cholesterol Reference Range: Optimal <100 Near Optimal 100-129 Borderline 130-159 High 160-189 Very High >=190LACTIC ACID, VENOUS, WHOLE [id number] 17:29:00 Test Item Value Reference Range Interpretation Comments LACTATE BLOOD VENOUS 1.0 mmol/L 0.5-2.2 Specime n slightly (2) (BEAKER) (test hemolyzed code = 2872) Effective 09/07/2015: Units/Reference Range ChangeNew: 0.5-2.2 mmol/L Previous: 5- 20 mg/[id number] 17:29:00 Test Item Value Reference Range Interpretation Comments PARTIAL THROMBOPLASTIN TIME 46.7 seconds 22.5-36.0 H (BEAKER) (test code = 760) PROTHROMBIN [id number] 17:28:00 Test Item Value Reference Range Interpretation Comments PROTIME (BEAKER) (test code = 14.9 seconds 11.7-14.7 H 759) INR (BEAKER) (test code = 370) 1.2 <=5.9 RECOMMENDED COUMADIN/WARFARIN INR THERAPY RANGESSTANDARD DOSE: 2.0 - 3.0 Includes: PROPHYLAXIS for venous thrombosis, systemic embolization; TREATMENT for venous thrombosis and/or pulmonary embolus.HIGH RISK: Target INR is 2.5-3.5 for patients with mechanical heart valves.CBC W/PLT COUNT & AUTO [id number] 17:24:00 Test Item Value Reference Range Interpretation [...] = 2801) RAD, CHEST, 1 VIEW, NON [id number] 17:16:00Reason for exam:->sp acute respiratory failure/bronchospasmShould this be performed at the bedside?->Yes FINAL REPORT EXAM: Frontal chest radiograph HISTORY PROVIDED: Status post acuterespiratory failure, bronchospasm COMPARISON: 11/18/2017 IMPRESSION:There is pulmonary vascular congestion and bilateral interstitial opacities suggesting mild interstitial edema. No focal consolidation. No pneumothorax or significant pleural fluid. Linear opacities within the left lung base likely represent scarring. Median sternotomy wires appear intact. The cardiac silhouette remains enlarged. No acute osseous abnormality. Signed: Clayton Baneg[place]port Verified Date/Time: 01/22/2018 17:16:12Reading Location: [facility] Reading Room POCT-GLUCOSE [id number] 17:12:00 Test Item Value Reference Range Interpretation Comments POC-GLUCOSE METER 118 mg/dL 70-110 H TESTED AT [place] [address] [facility] (test code = BREEZY Moss [facility] 1538) [address] BLOOD GAS, [id number] 16:35:00 Test Item Value Reference Range Interpretation [...] (test code = 1819) 32.0 % POCT-GLUCOSE [id number] 14:15:00 Test Item Value Reference Range Interpretation Comments POC-GLUCOSE METER 69 mg/dL 70-110 L Will Repea t Test/TESTED (BEAKER) (test code = AT [facility] [address] [facility] 1538) [facility] [address] POCT-GLUCOSE [id number] 08:43:00 Test Item Value Reference Range Interpretation Comments POC-GLUCOSE METER 277 mg/dL 70-110 H TESTED AT [place] [address] (BEAKER) (test code = [facility] 1538) [address] [id number] 06:20:00 Test Item Value Reference Range Interpretation Comments PHOSPHORUS (BEAKER) (test code = 3.3 mg/dL 2.3-4.7 604) [id number] 06:20:00 Test Item Value Reference Range Interpretation Comments MAGNESIUM (BEAKER) (test code = 1.8 mg/dL 1.6-2.6 627) BASIC METABOLIC [id number] 06:20:00 Test Item Value Reference Range Interpretation [...] 697) EGFR (BEAKER) (test 63 mL/min/1.73 ESTIMA OZIEL GFR IS code = 1092) sq m NOT ACCURATE CREATININE CLEARANCE IN PREDICTING GLOMERULAR FILTRATION RATE . ESTIMATED GFR I S NOT APPLICABLE FOR DIALYSIS PATIEN TS. CBC W/PLT COUNT & AUTO [id number] 06:09:00 Test Item Value Reference Range Interpretation [...] PERCENT (BEAKER) (test code = 2801) POCT-GLUCOSE [id number] 22:48:00 Test Item Value Reference Range Interpretation Comments POC-GLUCOSE METER 196 mg/dL 70-110 H TESTED AT [facility] [address] (BEAKER) (test code = [place] 1538) [address] POCT-GLUCOSE [id number] 17:21:00 Test Item Value Reference Range Interpretation Comments POC-GLUCOSE METER 122 mg/dL 70-110 H TESTED AT [facility] [address] (BEAKER) (test code = [place] 1538) [address] [id number] 13:13:00 Test Item Value Reference Range Interpretation Comments PHOSPHORUS (BEAKER) (test code = 2.4 mg/dL 2.3-4.7 604) BASIC METABOLIC [id number] 13:13:00 Test Item Value Reference Range Interpretation [...] 697) EGFR (BEAKER) (test 67 mL/min/1.73 ESTIMA OZIEL GFR IS code = 1092) sq m NOT ACCURATE CREATININE CLEARANCE IN PREDICTING GLOMERULAR FILTRATION RATE . ESTIMATED GFR I S NOT APPLICABLE FOR DIALYSIS PATIEN TS. [id number] 13:08:00 Test Item Value Reference Range Interpretation Comments MAGNESIUM (BEAKER) (test code = 1.7 mg/dL 1.6-2.6 627) CBC W/PLT COUNT & AUTO [id number] 12:50:00 Test Item Value Reference Range Interpretation [...] PERCENT (BEAKER) (test code = 2801) POCT-GLUCOSE [id number] 12:42:00 Test Item Value Reference Range Interpretation Comments POC-GLUCOSE METER 174 mg/dL 70-110 H TESTED AT [facility] [address] ([facility] (test code = [place] 1538) [address] POCT-GLUCOSE [id number] 08:01:00 Test Item Value Reference Range Interpretation Comments POC-GLUCOSE METER 175 mg/dL 70-110 H TESTED AT [facility] [address] ([facility]) (test code = [facility] Isa [facility] 1538) [address] RAD, CHEST, 1 VIEW, NON [id number] 03:44:00Reason for exam:->ptxShould this be performed at the bedside?->YesFINAL REPORT RAD, CHEST, 1 VIEW, NON DEPT INDICATION: ptx COMPARISON: Prior day's exam FINDINGS: Portable frontal view of the chest. IMPRESSION: Support Lines: None. Lungs and pleura: Stable small left apical pneumothorax. Mild increase in congestive changes in the interstitial markings bilaterally. No effusion.Heart and mediastinum: Stable contours. Stable surgical changes.Additional findings: None. Signed: JR Edwards Robert MDReport Verified Date/Time: 11/18/2017 03:44:0 4 Reading Location: [address] Reading Room POCT-GLUCOSE [id number] 21:05:00 Test Item Value Reference Range Interpretation Comments POC-GLUCOSE METER 145 mg/dL 70-110 H TESTED AT [facility] [address] ([facility]) (test code = [place] 1538) [address] POCT-GLUCOSE [id number] 17:19:00 Test Item Value Reference Range Interpretation Comments POC-GLUCOSE METER 129 mg/dL 70-110 H TESTED AT [facility] [address] ([facility]) (test code = [place] [place] 1538) [address] POCT-GLUCOSE [id number] 12:12:00 Test Item Value Reference Range Interpretation Comments POC-GLUCOSE METER 194 mg/dL 70-110 H TESTED AT [facility] ([facility]) (test code = [place] 1538) [id number] POCT-GLUCOSE [id number] 07:30:00 Test Item Value Reference Range Interpretation Comments POC-GLUCOSE METER 171 mg/dL 70-110 H TESTED AT [place] [id number] ([facility]) (test code = [facility] 1538) [address] RAD, CHEST, 1 VIEW, NON [id number] 07:27:00Reason for exam:->ptxShould this be performed at the bedside?->YesFINAL REPORT HISTORY : ptx. Comparison: 11/16/2017 Comment: Single portable viewof the chest was obtained. Cardiac silhouette size is enlarged. There is some left perihilar linear subsegmental atelectasis versus scarring. There is some mild pulmonary venous congestion. Some patchyperihilar densities could represent interstitial edema or a nonspecific pneumonitis. There is a small left apical pneumothorax which has slightly diminished. No pleural effusion is seen. Signed: Sammie Mitchell MDReport Verified Date/Time: 11/17/2017 07:27:16 Reading Location: [address] Consult Reading Room [id number] 07:19:00 Test Item Value Reference Range Interpretation Comments MAGNESIUM (BEAKER) (test code = 1.9 mg/dL 1.6-2.6 627) BASIC METABOLIC [id number] 07:19:00 Test Item Value Reference Range Interpretation [...] 697) EGFR (BEAKER) (test 69 mL/min/1.73 ESTIMA OZIEL GFR IS code = 1092) sq m NOT ACCURATE CREATININE CLEARANCE IN PREDICTING GLOMERULAR FILTRATION RATE . ESTIMATED GFR I S NOT APPLICABLE FOR DIALYSIS PATIEN TS. POCT-GLUCOSE [id number] 21:30:00 Test Item Value Reference Range Interpretation Comments POC-GLUCOSE METER 214 mg/dL 70-110 H TESTED AT [facility] 6720 (BEAKER) (test code = [place] 1538) [address] URINALYSIS W/ REFLEX URINE [id number] 16:32:00 Test Item Value Reference Range Interpretation [...] = 2795) RAD, CHEST, 1 VIEW, NON [id number] 15:34:00Reason for exam:->ptxShould this be performed at the bedside?->YesFINAL REPORT HISTORY : ptx. Comparison: 11/16/2017 Comment: Single portable viewof the chest was obtained. The cardiac silhouette size is enlarged. The patient is status post sternotomy. No pleural effusion or focal infiltrate is seen. There is a small left apical pneumothorax which is not appreciably changed. There is some left perihilar linear subsegmental atelectasis versus scarring. There has been interval removal of the left sided chest tube. Signed: Sammie Mitchell Date/Time: 11/16/2017 15:34:49 Reading Location: [facility] [id number] Consult Reading Room -GLUCOSE [id number] 12:10:00 Test Item Value Reference Range Interpretation Comments POC-GLUCOSE METER 203 mg/dL 70-110 H TESTED AT [place] [address] ([facility]) (test code = [place] 1538) [address] POCT-GLUCOSE [id number] 08:21:00 Test Item Value Reference Range Interpretation Comments POC-GLUCOSE METER 181 mg/dL 70-110 H TESTED AT [place] [address] ([facility]) (test code = [place] 1538) [address] RAD, CHEST, 1 VIEW, NON [id number] 08:03:00while patient is intubated or has chest tubes.Reason for exam:->PostopShould this be performed atthe bedside?->YesFINAL REPORT Chest one view compared to November 15 Discussion: Left chest tube is again noted. A left apical pneumothorax appears minimally larger now with pleural separation 1.8 cm. Patchy airspace opacities left mid lung overall similar. No effusion. IMPRESSIONS: A left-sided pneumothorax appears minimally larger. Signed: Wilmar Tran Verified Date/Time: 11/16/2017 08:03:32 Reading Location: [address] Reading Room POCT- GLUCOSE [id number] 00:11:00 Test Item Value Reference Range Interpretation Comments POC-GLUCOSE METER 159 mg/dL 70-110 H TESTED AT [place] [address] ([facility]) (test code = BREEZ[place] [facility] 1538) [address] POCT-GLUCOSE [id number] 20:33:00 Test Item Value Reference Range Interpretation Comments POC-GLUCOSE METER 163 mg/dL 70-110 H TESTED AT [place] [address] ([facility]) (test code = BREEZY [place] [facility] 1538) [address] POCT-GLUCOSE [id number] 17:33:00 Test Item Value Reference Range Interpretation Comments POC-GLUCOSE METER 183 mg/dL 70-110 H TESTED AT [place] [address] ([facility]) (test code = BREEZ[place] [facility] 1538) [address] URINE IMMUNOFIXATION, [id number] 17:17:00 Test Item Value Reference Range Interpretation Comments PROTEIN, URINE 30 mg/dL 0-14 H (BEAKER) (test code = 1569) ALBUMIN URINE ELP 61.4 % (BEAKER) (test code = 1018) GAMMA GLOBULIN URINE 38.6 % (BEAKER) (test code = 1015) URINE GERARD ID-[id number] No monoclonal proteins (BEAKER) (test code = or monoclonal free 2602) light chains detected. [id number] Raine Martin MD (BEAKER) (test code = (electronic signature) 2603) RAD, CHEST, 1 VIEW, NON [id number] 13:19:00while patient is intubated or has chest tubes.Reason for exam:->PostopShould this be performed atthe bedside?->YesFINAL REPORT Chest one view compared to November 14 Discussion: Left chest tube, right IJ pulmonary catheter are noted. There is pulmonary congestion and right midlung linear atelectasis grossly similar. No gross effusion. Tiny left apical pneumothorax unchanged. Signed: Wilmar Tranort Verified Date/Time: 11/15/2017 13:19:28 Reading Location: [facility] Radiology Reading Room URINE PROTEIN ELECTROPHORESIS, [id number] 12:47:00 Test Item Value Reference Range Interpretation Comments PROTEIN, URINE 12 mg/dL 0-14 (BEAKER) (test code = 1569) ALBUMIN URINE ELP 61.4 % (BEAKER) (test code = 1018) GAMMA GLOBULIN URINE 38.6 % (BEAKER) (test code = 1015) UPEP, ID-[id number] (BEAKER) No monoclonal bands (test code = 2604) detected. [id number] Raine Martin MD (BEAKER) (test code = (electronic signature) 2605) PROTEIN ELECTROPHORESIS, [id number] 12:29:00 Test Item Value Reference Range Interpretation [...] a hemolyzed sample. No monoclonal bands detected. [id number] Raine Martin MD (BEAKER) (test code = (electronic signature) 2611) PROTEIN TOTAL SERUM, 7.0 gm/dL 6.0-8.3 SPEP (BEAKER) (test code = 2299) BLOOD GAS, [id number] 08:21:00 Test Item Value Reference Range Interpretation [...] code = 1819) 20.0 % BASIC METABOLIC [id number] 08:03:00 Test Item Value Reference Range Interpretation [...] 697) EGFR (BEAKER) (test 69 mL/min/1.73 ESTIMA OZIEL GFR IS code = 1092) sq m NOT ACCURATE CREATININE CLEARANCE IN PREDICTING GLOMERULAR FILTRATION RATE . ESTIMATED GFR I S NOT APPLICABLE FOR DIALYSIS PATIEN TS. LACTIC ACID, ARTERIAL, WHOLE [id number] 07:57:00 Test Item Value Reference Range Interpretation Comments LACTATE BLOOD ARTERIAL (2) 0.8 mmol/L 0.5-2.2 (BEAKER) (test code = 2874) Effective 09/07/2015: Units/Reference Range ChangeNew: 0.5-2.2 mmol/L Previous: 5- 20 mg/[id number] 02:55:00 Test Item Value Reference Range Interpretation Comments PHOSPHORUS (BEAKER) (test code = 2.8 mg/dL 2.3-4.7 604) [id number] 02:55:00 Test Item Value Reference Range Interpretation Comments MAGNESIUM (BEAKER) (test code = 2.1 mg/dL 1.6-2.6 627) BASIC METABOLIC [id number] 02:55:00 Test Item Value Reference Range Interpretation [...] 697) EGFR (BEAKER) (test 67 mL/min/1.73 ESTIMA OZIEL GFR IS code = 1092) sq m NOT ACCURATE CREATININE CLEARANCE IN PREDICTING GLOMERULAR FILTRATION RATE . ESTIMATED GFR I S NOT APPLICABLE FOR DIALYSIS PATIEN TS. PROTHROMBIN [id number] 02:53:00 Test Item Value Reference Range Interpretation Comments PROTIME (BEAKER) (test code = 14.9 seconds 11.7-14.7 H 759) INR (BEAKER) (test code = 370) 1.2 <=5.9 RECOMMENDED COUMADIN/WARFARIN INR THERAPY RANGESSTANDARD DOSE: 2.0 - 3.0 Includes: PROPHYLAXIS for venous thrombosis, systemic embolization; TREATMENT for venous thrombosis and/or pulmonary embolus.HIGH RISK: Target INR is 2.5-3.5 for patients with mechanical heart valves.[id number] 02:53:00 Test Item Value Reference Range Interpretation Comments PARTIAL THROMBOPLASTIN TIME 34.0 seconds 22.5-36.0 (BEAKER) (test code = 760) CBC W/PLT COUNT & AUTO [id number] 02:43:00 Test Item Value Reference Range Interpretation [...] PERCENT (BEAKER) (test code = 2801) PLATELET [id number] 02:35:00 Test Item Value Reference Range Interpretation Comments PLATELET COUNT (BEAKER) (test 167 K/CU MM 150-450 code = 756) GLUCOSE-STAT [id number] 02:32:00 Test Item Value Reference Range Interpretation Comments GLUCOSE RANDOM (BEAKER) (test code 112 mg/dL 70-110 H = 652) HGB/HCT (H&H) - STAT [id number] 02:32:00 Test Item Value Reference Range Interpretation Comments HEMOGLOBIN (BEAKER) (test code = 10.5 g/dL 13.0-16.8 L 410) HEMATOCRIT (BEAKER) (test code = 31.0 % 40.0-50.0 L 411) CALCIUM, [id number] 02:31:00 Test Item Value Reference Range Interpretation Comments CALCIUM IONIZED (BEAKER) (test 1.18 mmol/L 1.12-1.27 code = 698) PH, BLOOD (BEAKER) (test code = 7.38 1810) SODIUM NA-STAT [id number] 02:31:00 Test Item Value Reference Range Interpretation Comments SODIUM (BEAKER) (test code = 381) 137 meq/L 135-148 POTASSIUM-STAT [id number] 02:31:00 Test Item Value Reference Range Interpretation Comments POTASSIUM (BEAKER) (test code = 3.7 meq/L 3.6-5.5 379) POCT-GLUCOSE [id number] 00:40:00 Test Item Value Reference Range Interpretation Comments POC-GLUCOSE METER 129 mg/dL 70-110 H TESTED AT [place] [address] (BEAKER) ([facility] = [facility] 1538) [address] POCT-GLUCOSE [id number] 00:40:00 Test Item Value Reference Range Interpretation Comments POC-GLUCOSE METER 143 mg/dL 70-110 H TESTED AT [place] [address] (BEAKER) (test code = [facility] 1538) [address] POCT-GLUCOSE [id number] 21:41:00 Test Item Value Reference Range Interpretation Comments POC-GLUCOSE METER 179 mg/dL 70-110 H TESTED AT [place] [address] (BEAKER) (test code = [facility] 1538) [address] BLOOD GAS, [id number] 19:39:00 Test Item Value Reference Range Interpretation [...] (test code = 1819) 40.0 % GLUCOSE-STAT [id number] 19:39:00 Test Item Value Reference Range Interpretation Comments GLUCOSE RANDOM (BEAKER) (test code 160 mg/dL 70-110 H = 652) HGB/HCT (H&H) - STAT [id number] 19:39:00 Test Item Value Reference Range Interpretation Comments HEMOGLOBIN (BEAKER) (test code = 11.0 g/dL 13.0-16.8 L 410) HEMATOCRIT (BEAKER) (test code = 32.0 % 40.0-50.0 L 411) SODIUM NA-STAT [id number] 19:37:00 Test Item Value Reference Range Interpretation Comments SODIUM (BEAKER) (test code = 381) 137 meq/L 135-148 POTASSIUM-STAT [id number] 19:37:00 Test Item Value Reference Range Interpretation Comments POTASSIUM (BEAKER) (test code = 4.0 meq/L 3.6-5.5 379) BLOOD GAS, [id number] 18:02:00 Test Item Value Reference Range Interpretation [...] arterial line present.RAD, CHEST, 1 VIEW, NON [id number] 17:20:00 Reason for exam:->PostopShould this be performed at the bedside?->YesFINAL REPORT EXAM: Frontal chest radiograph HISTORY PROVIDED: Postop COMPARISON: 11/13/2017 IMPRESSION:The tip of an endotracheal tube terminates 3.8 cm above the alexia. A right IJapproach [place] catheter has been placed with its tip [...] No acute osseous abnormality. Signed: Clayton Banegas [facility] Verified Date/Time: 11/14/2017 17:20:20 Reading Location: [facility] Mammo Reading Room BASI METABOLIC [id number] 16:02:00 Test Item Value Reference Range Interpretation [...] 697) EGFR (BEAKER) (test 65 mL/min/1.73 ESTIMA OZIEL GFR IS code = 1092) sq m NOT ACCURATE CREATININE CLEARANCE IN PREDICTING GLOMERULAR FILTRATION RATE . ESTIMATED GFR I S NOT APPLICABLE FOR DIALYSIS PATIEN TS. [id number] 16:02:00 Test Item Value Reference Range Interpretation Comments PHOSPHORUS (BEAKER) (test code = 2.3 mg/dL 2.3-4.7 604) [id number] 16:02:00 Test Item Value Reference Range Interpretation Comments MAGNESIUM (BEAKER) (test code = 2.6 mg/dL 1.6-2.6 627) LACTIC ACID, ARTERIAL, WHOLE [id number] 15:58:00 Test Item Value Reference Range Interpretation Comments LACTATE BLOOD 0.9 mmol/L 0.5-2.2 Specimen sligh tly ARTERIAL (2) (BEAKER) hemoly zed (test code = 2874) Effective 09/07/2015: Units/Reference Range ChangeNew: 0.5-2.2 mmol/L Previous: 5- 20 mg/dLCBC W/PLT COUNT & AUTO [id number] 15:47:00 Test Item Value Reference Range Interpretation [...] (BEAKER) (test code = 2801) OXYGEN SATURATION, [id number] 15:37:00 Test Item Value Reference Range Interpretation Comments O2 SATURATION (MEASURED) (BEAKER) 55.5 % (test code = 1455) CALCIUM, [id number] 15:37:00 Test Item Value Reference Range Interpretation Comments CALCIUM IONIZED (BEAKER) (test 1.12 mmol/L 1.12-1.27 code = 698) PH, BLOOD (BEAKER) (test code = 7.41 1810) SODIUM NA-STAT [id number] 15:37:00 Test Item Value Reference Range Interpretation Comments SODIUM (BEAKER) (test code = 381) 138 meq/L 135-148 POTASSIUM-STAT [id number] 15:37:00 Test Item Value Reference Range Interpretation Comments POTASSIUM (BEAKER) (test code = 3.6 meq/L 3.6-5.5 379) BLOOD GAS, [id number] 15:37:00 Test Item Value Reference Range Interpretation [...] (test code = 1819) 60.0 % GLUCOSE-STAT [id number] 15:37:00 Test Item Value Reference Range Interpretation Comments GLUCOSE RANDOM (BEAKER) (test code 162 mg/dL 70-110 H = 652) HEMOGLOBIN-STAT [id number] 15:37:00 Test Item Value Reference Range Interpretation Comments HEMOGLOBIN (BEAKER) (test code = 11.2 g/dL 13.0-16.8 L 410) HGB/HCT (H&H) - STAT [id number] 15:37:00 Test Item Value Reference Range Interpretation Comments HEMOGLOBIN (BEAKER) (test code = 11.2 GM/DL 13.0-16.8 L 410) HEMATOCRIT (BEAKER) (test code = 33.0 % 40.0-50.0 L 411) [id number] 14:04:00 Test Item Value Reference Range Interpretation Comments ACTIVATED CLOTTING TIME 114 sec TEST ED AT [place] [address] (BEAKER) (test code = [place] 441) [address] [id number] 14:04:00 Test Item Value Reference Range Interpretation Comments ACTIVATED CLOTTING TIME 472 sec TEST ED AT [place] [address] (BEAKER) (test code = [place] 441) [address] [id number] 14:04:00 Test Item Value Reference Range Interpretation Comments ACTIVATED CLOTTING TIME 505 sec TEST ED AT [place] [address] (BEAKER) (test code = [place] 441) [address] [id number] 14:04:00 Test Item Value Reference Range Interpretation Comments ACTIVATED CLOTTING TIME 543 sec TEST ED AT [place] [address] (BEAKER) (test code = [place] 441) [address] CALCIUM, [id number] 13:58:00 Test Item Value Reference Range Interpretation Comments CALCIUM IONIZED (BEAKER) (test 1.11 mmol/L 1.12-1.27 L code = 698) PH, BLOOD (BEAKER) (test code = 7.36 1810) BLOOD GAS, [id number] 13:56:00 Test Item Value Reference Range Interpretation [...] (test code = 1819) 100.0 % GLUCOSE-STAT [id number] 13:56:00 Test Item Value Reference Range Interpretation Comments GLUCOSE RANDOM (BEAKER) (test code 167 mg/dL 70-110 H = 652) HGB/HCT (H&H) - STAT [id number] 13:56:00 Test Item Value Reference Range Interpretation Comments HEMOGLOBIN (BEAKER) (test code = 10.8 g/dL 13.0-16.8 L 410) HEMATOCRIT (BEAKER) (test code = 32.0 % 40.0-50.0 L 411) SODIUM NA-STAT [id number] 13:55:00 Test Item Value Reference Range Interpretation Comments SODIUM (BEAKER) (test code = 381) 136 meq/L 135-148 POTASSIUM-STAT [id number] 13:55:00 Test Item Value Reference Range Interpretation Comments POTASSIUM (BEAKER) (test code = 3.8 meq/L 3.6-5.5 379) BLOOD GAS, [id number] 12:54:00 Test Item Value Reference Range Interpretation [...] code = 1819) 65.0 % SODIUM NA-STAT [id number] 12:54:00 Test Item Value Reference Range Interpretation Comments SODIUM (BEAKER) (test code = 381) 134 meq/L 135-148 L GLUCOSE-STAT [id number] 12:54:00 Test Item Value Reference Range Interpretation Comments GLUCOSE RANDOM (BEAKER) (test code 158 mg/dL 70-110 H = 652) HGB/HCT (H&H) - STAT [id number] 12:54:00 Test Item Value Reference Range Interpretation Comments HEMOGLOBIN (BEAKER) (test code = 8.8 g/dL 13.0-16.8 L 410) HEMATOCRIT (BEAKER) (test code = 26.0 % 40.0-50.0 L 411) POTASSIUM-STAT [id number] 12:53:00 Test Item Value Reference Range Interpretation Comments POTASSIUM (BEAKER) (test code = 4.1 meq/L 3.6-5.5 379) BLOOD GAS, [id number] 12:20:00 Test Item Value Reference Range Interpretation [...] code = 1819) 60.0 % SODIUM NA-STAT [id number] 12:20:00 Test Item Value Reference Range Interpretation Comments SODIUM (BEAKER) (test code = 381) 134 meq/L 135-148 L GLUCOSE-STAT [id number] 12:20:00 Test Item Value Reference Range Interpretation Comments GLUCOSE RANDOM (BEAKER) (test code 187 mg/dL 70-110 H = 652) HGB/HCT (H&H) - STAT [id number] 12:20:00 Test Item Value Reference Range Interpretation Comments HEMOGLOBIN (BEAKER) (test code = 10.0 g/dL 13.0-16.8 L 410) HEMATOCRIT (BEAKER) (test code = 29.0 % 40.0-50.0 L 411) BLOOD GAS, [id number] 12:20:00 Test Item Value Reference Range Interpretation [...] (test code = 1819) 60.0 % POTASSIUM-STAT [id number] 12:18:00 Test Item Value Reference Range Interpretation Comments POTASSIUM (BEAKER) (test code = 3.5 meq/L 3.6-5.5 L 379) U/S, RENAL WITH [id number] 08:35:00Reason for exam:->INCLUDE DOPPLERS AND PVR- for [...] resistive index of the right upper, middle and lower poles of the kidney are 0.69, 0.69 and 0.69. The left kidney is normal in size measuring 11.8 x 5.3 x 5.3 cm with cortical thickness of 1.5 cm. Cortical echogenicity is within normal limits. There isno evidence for solid renal mass, hydronephrosis, shadowing calculi. The main renal artery and vein are patent. Arterial waveforms are within normal limits. The resistive index of the left upper, middle and lower poles of the kidney are 0.69, 0.73 and 0.70. The bladder is only partially distended but appears grossly unremarkable. Impression: Unremarkable renal ultrasound examination and Doppler evaluation. Signed: Willie Sanchez Verified Date/Time: 11/14/2017 08:35:40 Reading Location: [facility] P006J Ultrasound Reading Room POCT-GLUCOSE [id number] 07:34:00 Test Item Value Reference Range Interpretation Comments POC-GLUCOSE METER 190 mg/dL 70-110 H TESTED AT [facility] 6720 (BEAKER) (test code = [place] 1538) [address] [id number] 05:19:00 Test Item Value Reference Range Interpretation Comments MAGNESIUM (BEAKER) (test code = 2.0 mg/dL 1.6-2.6 627) BASIC METABOLIC [id number] 05:19:00 Test Item Value Reference Range Interpretation [...] 697) EGFR (BEAKER) (test 55 mL/min/1.73 ESTIMA OZIEL GFR IS code = 1092) sq m NOT ACCURATE CREATININE CLEARANCE IN PREDICTING GLOMERULAR FILTRATION RATE . ESTIMATED GFR I S NOT APPLICABLE FOR DIALYSIS PATIEN TS. CBC W/PLT COUNT & AUTO [id number] 05:00:00 Test Item Value Reference Range Interpretation [...] 0-1 PERCENT (BEAKER) (test code = 2801) [id number] 01:56:00 Test Item Value Reference Range Interpretation Comments PARTIAL THROMBOPLASTIN TIME 69.0 seconds 22.5-36.0 H (BEAKER) (test code = 760) POCT-GLUCOSE [id number] 22:07:00 Test Item Value Reference Range Interpretation Comments POC-GLUCOSE METER 185 mg/dL 70-110 H TESTED AT [facility] 6720 (BEAKER) (test code = [place] 1538) [address] [id number] 18:43:00 Test Item Value Reference Range Interpretation Comments PARTIAL THROMBOPLASTIN TIME 45.2 seconds 22.5-36.0 H (BEAKER) (test code = 760) [id number] 16:12:00 Test Item Value Reference Range Interpretation Comments THYROID STIMULATING HORMONE 0.53 uIU/mL 0.35-4.94 (BEAKER) (test code = 772) RAD, CHEST, 1 VIEW, NON [id number] 15:33:00Reason for exam:->preopShould this be performed at the bedside?->YesFINAL REPORT EXAM: Frontal chest radiograph HISTORY PROVIDED: Preop COMPARISON:11/12/2017 IMPRESSION:No focal consolidation, pneumothorax, or significant pleural fluid. The cardiomediastinal silhouette is within normal limits. No acute osseous abnormality. Degenerative changes of the spine are present. Signed: Clayton Banegas Verified Date/Time: 11/13/2017 15:33:28 Reading Location: [facility] Reading Room 0 3:33 [id number] 15:06:00 Test Item Value Reference Range Interpretation Comments PARTIAL THROMBOPLASTIN TIME 51.6 seconds 22.5-36.0 H ([place]) (test code = 760) PROTHROMBIN [id number] 15:05:00 Test Item Value Reference Range Interpretation Comments PROTIME (BEAKER) (test code = 13.4 seconds 11.7-14.7 759) INR (BEAKER) (test code = 370) 1.0 <=5.9 RECOMMENDED COUMADIN/WARFARIN INR THERAPY RANGESSTANDARD DOSE: 2.0 - 3.0 Includes: PROPHYLAXIS for venous thrombosis, systemic embolization; TREATMENT for venous thrombosis [...] INTERPRETATION (BEAKER) arachidonic acid (test code = 266853) suggests aspirin-like effect. [id number] Deven Mei MD (BEAKER) (test code = (electronic 2621) signature) PLATELET COUNT AGG 243 K/CU MM 150-450 (BEAKER) (test code = 2656) Platelet aggregation results may be falsely low with platelet counts<100,000/CU MM.CREATININE, RANDOM [id number] 06:28:00 Test Item Value Reference Range Interpretation Comments CREATININE URINE (BEAKER) (test 114.6 mg/dL code = 375) Reference Range: No NormalsPROTEIN, RANDOM [id number] 06:28:00 Test Item Value Reference Range Interpretation Comments PROTEIN, URINE (BEAKER) (test code = 30 mg/dL 0-14 H 1569) PH, [id number] 05:47:00 Test Item Value Reference Range Interpretation Comments PH VENOUS (BEAKER) (test code = 701) 7.40 7.32-7.42 VITAMIN D, [id number] 04:52:00 Test Item Value Reference Range Interpretation Comments VITAMIN D 25-OH (BEAKER) (test 36.5 ng/mL 6.6-49.9 code = 2764) Effective 02/13/2017: Reference Range ChangeNew: 6.6-49.9 ng/mL Previous: 13.0- 47.8 ng/mLRecommendedVitamin D Target Range: 30.0-40.0 ng/mLPTH, INTACT 2017-11-13 04:25:00 Test Item Value Reference Range Interpretation Comments PARATHYROID HORMONE INTACT 91.7 pg/mL 8.5-72.5 H (BEAKER) (test code = 577) [id number] 04:21:00 Test Item Value Reference Range Interpretation Comments PARTIAL THROMBOPLASTIN TIME 53.6 seconds 22.5-36.0 H (BEAKER) (test code = 760) URIC [id number] 04:20:00 Test Item Value Reference Range Interpretation Comments URIC ACID (BEAKER) (test code = 9.0 mg/dL 2.6-7.2 H 773) [id number] 04:20:00 Test Item Value Reference Range Interpretation Comments MAGNESIUM (BEAKER) (test code = 2.0 mg/dL 1.6-2.6 627) [id number] 04:20:00 Test Item Value Reference Range Interpretation Comments PHOSPHORUS (BEAKER) (test code = 3.1 mg/dL 2.3-4.7 604) BASIC METABOLIC [id number] 04:20:00 Test Item Value Reference Range Interpretation [...] 697) EGFR (BEAKER) (test 55 mL/min/1.73 ESTIMA OZIEL GFR IS code = 1092) sq m NOT ACCURATE CREATININE CLEARANCE IN PREDICTING GLOMERULAR FILTRATION RATE . ESTIMATED GFR I S NOT APPLICABLE FOR DIALYSIS PATIEN TS. CBC W/PLT COUNT & AUTO [id number] 04:06:00 Test Item Value Reference Range Interpretation [...] 0-1 PERCENT (BEAKER) (test code = 2801) [id number] 22:34:00 Test Item Value Reference Range Interpretation Comments PARTIAL THROMBOPLASTIN TIME 49.5 seconds 22.5-36.0 H ([facility]) (test code = 760) POCT-GLUCOSE [id number] 21:55:00 Test Item Value Reference Range Interpretation Comments POC-GLUCOSE METER 179 mg/dL 70-110 H TESTED AT [facility] 6720 ([facility]) (test code = [place] 1538) [address] RAD, CHEST, 1 VIEW, NON [id number] 17:03:00Reason for exam:->sobShould this be performed at the bedside?->YesFINAL REPORT CHEST AP PORTABLE History provided: Shortness of breath Comparisonstudies: None Heart size normal. Lungs grossly clear and vascularity normal. IMPRESSION: Grossly clear chest. Signed: Rufino Johnson Verified Date/Time: 11/12/2017 17:03:31 Reading Location: [address] Radiology Reading Room [id number] 15:41:00 Test Item Value Reference Range Interpretation Comments PARTIAL THROMBOPLASTIN TIME 41.3 seconds 22.5-36.0 H ([facility]) (test code = 760) POCT-GLUCOSE [id number] 11:50:00 Test Item Value Reference Range Interpretation Comments POC-GLUCOSE METER 218 mg/dL 70-110 H TESTED AT [facility] 6720 ([facility]) (test code = BREEZY Moss [facility] 1538) [id number] PLATELET AGGREGATION: FUNCTION [id number] 10:14:00 Test Item Value Reference Range Interpretation Comments WEAK ADP 82 % 60-91 RESULT([facility]) (test code = 2135) PLATELET FUNCTION 60-100% indicates This is a corrected SCREEN INTERP normal platelet result. Pre vious ([facility]) (test function result was 50 -59% code = 2173) indicates mild platelet dysfunction on 11/11/2017 at [address] [facility]- Deven Mei MD 3750 ([facility]) (electronic (test code = signature) 4742) PLATELET COUNT 283 K/CU MM 150-450 AGG ([facility] [facility] [place]) (test code = 2656) TROPONIN [id number] 08:02:00 Test Item Value Reference Range Interpretation [...] failure, acidosis, acute neurological disease, and persistent tachyarrhythmia.[id number] 07:55:00 Test Item Value Reference Range Interpretation Comments PARTIAL THROMBOPLASTIN TIME 42.7 seconds 22.5-36.0 H (BEAKER) (test code = 760) [id number] 07:55:00 Test Item Value Reference Range Interpretation Comments MAGNESIUM (BEAKER) (test code = 2.3 mg/dL 1.6-2.6 627) BASIC METABOLIC [id number] 07:55:00 Test Item Value Reference Range Interpretation [...] 697) EGFR (BEAKER) (test 59 mL/min/1.73 ESTIMA OZIEL GFR IS code = 1092) sq m NOT ACCURATE CREATININE CLEARANCE IN PREDICTING GLOMERULAR FILTRATION RATE . ESTIMATED GFR I S NOT APPLICABLE FOR DIALYSIS PATIEN TS. CBC W/PLT COUNT & AUTO [id number] 07:49:00 Test Item Value Reference Range Interpretation [...] PERCENT (BEAKER) (test code = 2801) POCT-GLUCOSE [id number] 07:33:00 Test Item Value Reference Range Interpretation Comments POC-GLUCOSE METER 159 mg/dL 70-110 H TESTED AT [facility] [facility] (test code = [place] [place] 1538) [id number] 00:57:00 Test Item Value Reference Range Interpretation Comments PARTIAL THROMBOPLASTIN TIME 47.6 seconds 22.5-36.0 H (BEAKER) (test code = 760) [id number] 00:40:00 Test Item Value Reference Range Interpretation Comments MAGNESIUM (BEAKER) 2.3 mg/dL 1.6-2.6 Specimen slightly (test code = 627) hemolyzed BASIC METABOLIC [id number] 00:40:00 Test Item Value Reference Range Interpretation [...] 697) EGFR (BEAKER) (test 54 mL/min/1.73 ESTIMA OZIEL GFR IS code = 1092) sq m NOT ACCURATE CREATININE CLEARANCE IN PREDICTING GLOMERULAR FILTRATION RATE . ESTIMATED GFR I S NOT APPLICABLE FOR DIALYSIS PATIEN TS. POCT-GLUCOSE [id number] 21:57:00 Test Item Value Reference Range Interpretation Comments POC-GLUCOSE METER 162 mg/dL 70-110 H TESTED AT [facility] [address] (BEAKER) (test code = [place] 1538) [id number] HEMOGLOBIN [id number] 19:53:00 Test Item Value Reference Range Interpretation Comments HEMOGLOBIN A1C (BEAKER) (test code = 7.0 % 4.3-6.1 H 368) LIPID [id number] 18:10:00 Test Item Value Reference Range Interpretation Comments TRIGLYCERIDES (BEAKER) (test code = 399 mg/dL 540) CHOLESTEROL (BEAKER) (test code = 218 mg/dL 631) HDL CHOLESTEROL (BEAKER) (test code 20 mg/dL = 976) LDL CHOLESTEROL CALCULATED (BEAKER) 118 mg/dL (test code = 633) Triglyceride Reference Range: Low Risk <150 Borderline 150-199 High Risk 200- 499 Very High Risk >=500Cholesterol Reference Range: Low Risk <200 Borderline 200-239 High Risk >240HDL Cholesterol Reference Range: Low Risk >=60 High Risk <40LDL Cholesterol Reference Range: Optimal <100 Near Optimal 100-129 Borderline 130-159 High 160-189 Very High >=190BASIC METABOLIC [id number] 18:10:00 Test Item Value Reference Range Interpretation [...] 697) EGFR (BEAKER) (test 56 mL/min/1.73 ESTIMA OZIEL GFR IS code = 1092) sq m NOT ACCURATE CREATININE CLEARANCE IN PREDICTING GLOMERULAR FILTRATION RATE . ESTIMATED GFR I S NOT APPLICABLE FOR DIALYSIS PATIEN TS. HEPATIC FUNCTION [id number] 18:10:00 Test Item Value Reference Range Interpretation [...] (test code = 24 U/L 6-55 347) [id number] 17:56:00 Test Item Value Reference Range Interpretation Comments PROTIME (BEAKER) (test code = 13.2 seconds 11.7-14.7 759) INR (BEAKER) (test code = 370) 1.0 <=5.9 PARTIAL THROMBOPLASTIN TIME 34.9 seconds 22.5-36.0 (BEAKER) (test code = 760) RECOMMENDED COUMADIN/WARFARIN INR THERAPY RANGESSTANDARD DOSE: 2.0 - 3.0 Includes: PROPHYLAXIS for venous thrombosis, systemic embolization; TREATMENT for venous thrombosis and/or pulmonary embolus.HIGH RISK: Target INR is 2.5-3.5 for patients with mechanical heart valves.CBC W/PLT COUNT & AUTO [id number] 17:47:00 Test Item Value Reference Range Interpretation [...] PERCENT (BEAKER) (test code = 2806) POCT-GLUCOSE [id number] 16:49:00 Test Item Value Reference Range Interpretation Comments POC-GLUCOSE METER 128 mg/dL 70-110 H TESTED AT [facility] [address] ([facility]) (test code = [place] 1538) [id number]
[2022-07-08 23:22] LABS: Absolute Lymphocytes (CBC) 0.3 K/uL (0.7-4.9); Hematocrit 36.1 % (39.6-49.0); MCV 87.6 fL (80-100); MPV 8.2 fL (7.6-11.3); RBC Red Blood Cell Count 4.13 M/uL (4.33-5.43)
[2022-07-08 23:25] LABS: Protime INR 1.19
[2022-07-08 23:32] LABS: SARS-COV-2 RT PCR NEGATIVE (NEGATIVE)
[2022-07-08 23:39] LABS: Albumin 3.3 g/dL (3.4-5.0); Bilirubin Total 0.3 mg/dL (0.2-1.0); Potassium 4.4 mmol/L (3.5-5.1); Protein, Total 6.9 g/dL (6.4-8.2)
[2022-07-09 00:06] LABS: Blood Morphology Comment NOT SEEN (NOT SEEN); Platelet Estimate ADEQ
[2022-07-09 00:15] LABS: Urine Blood 3+ (Negative); Urine Glucose Negative (Negative); Urine Protein 1+ (Negative); Urine pH 5.5 (5.0-7.0)
--- NOTE | 2022-07-09 00:30 | EDPHYS ---
Physician Documentation [facility] Name: Ludwin Hsu Age: 71 yrs Sex: Male : 1950 Arrival Date: 07/08/2022 Time: 22:14 Bed 18 Private MD: ED Physician Nicolás Morgan Historical: - Allergies: 07/08 22:17 NKA; vc1 - Home Meds: 22:17 Xarelto 20 mg Oral tab 1 tab once daily [Active]; vc1 - PMHx: 22:17 arteriosclerosis; CHF; chronic back pain; kidney disease; Pancreatitis; tinnitus; vc1 Myocardial infarction; malignant neoplasm of epidimyis; 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; PTSD; Diabetes - NIDDM; Hypertension; COPD; - PSHx: 22:17 pacemaker; vc1 - Social history:: Smoking status: unknown. Vital Signs: 22:14 BP 121 / 70; Pulse 86; Pulse Ox 93% on 2 lpm NC; vc1 22:25 Temp 99.5; vc1 Hubbard Coma Score: 22:20 Eye Response: spontaneous(4). Verbal Response: oriented(5). Motor Response: obeys ke1 commands(6). Total: 15. Trauma Score (Adult): 22:20 Eye Response: spontaneous(1); Verbal Response: oriented(1); Motor Response: obeys ke1 commands(2); Systolic BP: > 89 mm Hg(4); Respiratory Rate: 10 to 29 per min(4); Skip Score: 15; Trauma Score: 12 MDM: 22:26 Patient medically screened. 07/08 22:32 Order name: Accucheck 07/08 22:32 Order name: Cardiac monitoring 07/08 22:32 Order name: EKG - Nurse/Tech 07/08 22:32 Order name: IV Saline Lock - Large Bore cp 07/08 22:32 Order name: Urine Dipstick-Ancillary (obtain specimen) 07/08 22:32 Order name: Vital Signs 07/08 22:32 Order name: Blood Culture Adult (2) cp 07/08 22:32 Order name: Urine Culture 07/08 22:32 Order name: Urine Microscopic Only cp 07/08 22:32 Order name: Chest Single View XRAY 07/08 22:32 Order name: EKG; Complete Time: 22:34 cp 07/08 22:43 Order name: Cath cp 07/08 22:39 Order name: COVID-19/FLU A+B la1 07/08 22:52 Order name: CT Traumagram (Head C Spine CAP wo con) cp 07/08 22:32 Order name: CBC with Diff cp 07/08 22:32 Order name: CMP cp 07/08 22:32 Order name: Lactate w/ 2H reflex if indic. cp 07/08 22:32 Order name: Protime (+inr) cp 07/08 22:32 Order name: Ptt, Activated cp 07/08 22:32 Order name: Labs collected and sent; Complete Time: 23:10 cp 07/08 22:32 Order name: O2 Per Protocol; Complete Time: 23:10 cp 07/08 22:32 Order name: O2 Sat Monitoring; Complete Time: 23:10 cp 07/08 23:58 Order name: BNP la1 07/08 23:58 Order name: Procalcitonin la1 07/08 23:58 Order name: Troponin High Sensitivity la1 07/08 23:49 Order name: Lactate w/ 2H reflex if indic.; Complete Time: 23:57 EDMS 07/08 23:58 Interpretation: Abnormal: LAC 3.5. cp 07/08 23:40 Order name: Comprehensive Metabolic Panel; Complete Time: 23:57 EDMS 07/08 23:58 Interpretation: Normal except: GLUC 227; BUN 49; CRE 2.19; GFR 31; ALT 15; ALB 3.3; cp GLOB 3.6; A/G 0.9. 07/08 23:25 Order name: PTT, Activated Partial Thromb; Complete Time: 23:57 EDMS 07/08 23:26 Order name: Protime (+INR); Complete Time: 23:57 EDMS 07/08 23:33 Order name: COVID-19/FLU A+B; Complete Time: 23:57 EDMS 07/09 00:23 Order name: CPK la1 07/08 23:26 Order name: CBC with Automated Diff; Complete Time: 00:15 EDMS 07/09 00:26 Interpretation: Normal except: WBC 14.60; RBC 4.13; HGB 11.8; HCT 36.1; ARMAND% 92.1; LYM% cp 2.0; NEUT A 13.4; LYMA 0.3. 07/09 00:21 Order name: Glucose, Ancillary Testing; Complete Time: 00:26 EDMS 07/09 00:15 Order name: Urine Dipstick-Ancillary; Complete Time: 00:16 EDMS 07/09 00:07 Order name: Manual Differential; Complete Time: 00:15 EDMS Administered Medications: No medications were administered Disposition Summary: 07/09/22 00:29 Hospitalization Ordered Hospitalization Status: Inpatient Admission cp Provider: Sebastian Jules cp Location: Telemetry/[facility] (Inpatient) cp Condition: Stable cp Problem: new cp Symptoms: have improved cp Bed/Room Type: Standard cp Room Assignment: cp Diagnosis - Altered mental status, unspecified cp - Acute kidney failure, unspecified cp Forms: - Medication Reconciliation Form cp - SBAR form cp Signatures: Dispatcher [employer] EDNY Frank Ballard FNP-C KETTLE CHIPPER-Cla1 Jose E Moser PA PA cp Calcote, Vanessa RN RN vc1
--- NOTE | 2022-07-09 00:30 | ER ---
Nurse's Notes [facility] Name: Ludwin Hsu Age: 71 yrs Sex: Male : 1950 Arrival Date: 07/08/2022 Time: 22:14 Bed 18 Private MD: Diagnosis: Altered mental status, unspecified;Acute kidney failure, unspecified Presentation: 07/08 22:14 Chief complaint: EMS states: 72 male who fell at an unknown time. Positive LOC and on vc1 blood thinners. When found he was bent over the toilet. He denies hitting head. Ebola Screen: Patient negative for fever greater than or equal to 101.5 degrees Fahrenheit, and additional compatible Ebola Virus Disease symptoms Patient denies exposure to infectious person. Patient denies travel to an Ebola-affected area in the 21 days before illness onset. No symptoms or risks identified at this time. Initial Sepsis Screen: Does the patient meet any 2 criteria? No. Patient's initial sepsis screen is negative. Does the patient have a suspected source of infection? No. Patient's initial sepsis screen is negative. Risk Assessment: Do you want to hurt yourself or someone else? Patient reports no desire to harm self or others. Onset of symptoms is unknown. 22:14 Method Of Arrival: EMS: [facility] vc1 22:14 Acuity: NGUYEN 2 vc1 23:32 Care prior to arrival: None. Mechanism of Injury: Fall unwitnessed found on knees ke1 holding toilet bowl per . Trauma event details: Injury occurred in the [facility], Injury occurred: at home. Injury occurred: July 08, 2022. Triage Assessment: 22:42 General: Appears in no apparent distress. Behavior is quiet. Pain: Denies pain. ke1 Trauma Activation: Physician: ED Physician; Name: lakhwinder; Notified At: 22:20; Arrived At: Physician: General Surgeon; Name: ; Notified At: 22:20; Arrived At: Physician: Radiology; Name: ; Notified At: 22:20; Arrived At: Physician: Respiratory; Name: ; Notified At: 22:20; Arrived At: Physician: Lab; Name: ; Notified At: 22:20; Arrived At: Historical: - Allergies: 22:17 NKA; vc1 - Home Meds: 22:17 Xarelto 20 mg Oral tab 1 tab once daily [Active]; vc1 - PMHx: 22:17 arteriosclerosis; CHF; chronic back pain; kidney disease; Pancreatitis; tinnitus; vc1 Myocardial infarction; malignant neoplasm of epidimyis; 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; PTSD; Diabetes - NIDDM; Hypertension; COPD; - PSHx: 22:17 pacemaker; vc1 - Social history:: Smoking status: unknown. Screenin:18 [facility] ED Fall Risk Assessment (Adult) History of falling in the last 3 months, vc1 including since admission Yes- physiologic fall (2 pts) Confusion or Disorientation Yes (5 pts) Intoxicated or Sedated No (0 pts) Impaired Gait Yes (1 pt) Mobility Assist Device Used Yes (1 pt) Altered Elimination No (0 pt) Score/Fall Risk Level 3 or more points = High Risk Oriented to surroundings, Maintained a safe environment, Educated pt \T\ family on fall prevention, incl call for assistance when getting out of bed. Abuse screen: Denies threats or abuse. Nutritional screening: No deficits noted. Tuberculosis screening: No symptoms or risk factors identified. Primary Survey: 22:20 NO uncontrolled hemorrhage observed. A: The client is alert. Airway: patent, Oxygen via ke1 nasal cannula at 2 liters per minute. Oral cavity: clear, gag reflex present, Trachea midline. . Breathing/Chest: Respiratory effort: spontaneous, Breath sounds: clear, diminished, Respiratory pattern: Chest inspection: symmetrical rise and fall of the chest. 22:20 Circulation: Hemorrhage: No external hemorrhage noted. Pulses: palpable right radial ke1 artery. Skin color: pink, Skin temperature: warm, Heart tones present. Disability Pupils are equal, round, reactive to light and accommodation. Client is alert. Exposure/Environment: All clothing and personal items were removed. Forensic evidence collection is not deemed to be indicated at this time. Items placed in patient belonging bag. There is no evidence of uncontrolled external bleeding. Obvious injury(ies) are noted at this time: skin tear R elbow. 23:32 Reassessment Breathing: Respiratory effort Spontaneous Unlabored. Reassessment ke1 Circulation: Pulses Palpable Disability: Pupils Pupils are equal, round, reactive to light and accomodation. Alert. Secondary Survey: 22:35 HEENT: Head No injury/deformity Face No injury/deformity Eyes: No injury or deformity ke1 noted. Ears: clear bilaterally. Nose: clear to bilateral nares. Throat: No injury or deformity noted. with gag reflex present. Gastrointestinal: Abdomen is non-distended, Bowel sounds present in all quadrants. : No deficits noted. Musculoskeletal: No deficits noted. Injury Description: Skin tears sustained to R elbow. Assessment: 23:31 General: Appears in no apparent distress. Behavior is. ke1 Vital Signs: 22:14 BP 121 / 70; Pulse 86; Pulse Ox 93% on 2 lpm NC; vc1 22:25 Temp 99.5; vc1 Skip Coma Score: 22:20 Eye Response: spontaneous(4). Verbal Response: oriented(5). Motor Response: obeys ke1 commands(6). Total: 15. Trauma Score (Adult): 22:20 Eye Response: spontaneous(1); Verbal Response: oriented(1); Motor Response: obeys ke1 commands(2); Systolic BP: > 89 mm Hg(4); Respiratory Rate: 10 to 29 per min(4); Bypro Score: 15; Trauma Score: 12 ED Course: 22:14 Patient arrived in ED. vc1 22:17 Triage completed. vc1 22:18 Arm band placed on left wrist. vc1 22:20 Jose E Moser PA is PHCP. cp 22:20 Nicolás Morgan MD is Attending Physician. cp 22:42 Shay Vela RN is Primary Nurse. ke1 22:43 Bed in low position. Call light in reach. ke1 22:52 COVID-19/FLU A+B Sent. ke1 23:09 CBC with Diff Sent. bc6 23:09 CMP Sent. bc6 23:09 Lactate w/ 2H reflex if indic. Sent. bc6 23:10 Protime (+inr) Sent. bc6 23:10 Ptt, Activated Sent. bc6 23:34 Oxygen administration via nasal cannula \T\ 2L/min. Thermoregulation: warm blanket given ke1 to patient. 0306 00:28 Sebastian Jules MD is Hospitalizing Provider. cp Administered Medications: No medications were administered Outcome: 00:29 Decision to Hospitalize by Provider. cp Signatures: Jose E Moser PA PA cp Marlys Zamora, RN RN vc1 Shay Vela, RN RN ke1 Heather Reyes 6
[2022-07-09 00:54] LABS: Urine Bacteria <20 /HPF (<20); Urine Mucus Slight /HPF (None Seen); Urine RBC <5 /HPF (None Seen)
[2022-07-09] MEDS ORDERED: CEFEPIME 1 GM/VIAL ONE ×3 (00:56→23:28)
[2022-07-09] MEDS ORDERED: NA CHLORIDE 0.9% 100 ML ONE ×3 (00:56→23:28)
[2022-07-09] MEDS ORDERED: NA CHLORIDE 0.9% 500 ML ONE ×2 (00:56→01:44)
--- NOTE | 2022-07-09 02:07 | P.HP ---
Certification for Inpatient Patient admitted to: Inpatient With expected LOS: >2 Midnights Patient will require the following post-hospital care: None Practitioner: I am a practitioner with admitting privileges, knowledge of patient current condition, hospital course, and medical plan of care. Services: Services provided to patient in accordance with Admission requirements found in Title 42 Section 412.3 of the Code of Federal Regulations <Frank Ballard - Last Filed: 07/09/22 01:59> Patient History Date of Service: 07/09/22 Reason for admission: Syncope, VIANNEY History of Present Illness: 71-year-old male with history of CAD with previous CABG, hypertension, hyperlipidemia, CKD 3, chronic diastolic congestive heart failure, atrial fibrillation on chronic anticoagulation with Xarelto, COPD, diabetes mellitus type 2, NORRIS presents to the emergency department after sustaining a fall versus syncopal event at home. Patient reports that he got up to walk to the bathroom and while standing from the toilet attempting to urinate "passed out". He does not recall the events immediately before his syncopal event although he denies any recognition of chest pain, lightheadedness or palpitations. The next thing he remembers was waking up when EMS got there, his reports that she had gone to bed at around 5 PM and when she woke up she found him in the bathroom by the toilet. It is unknown how long he was lying there. He does have a pacemaker in place. His labs today were significant for moderate leukocytosis with a white blood cell count of 14.6 acute kidney injury creatinine 2.19 GFR 31 BUN 49 CPK elevated 753 high-sensitivity troponin mildly elevated 76.0 lactic acid 3.5 initially procalcitonin 1.37 urinalysis negative for signs of infection but did note 3+ blood 1+ protein chest x-ray was unremarkable CT of the chest abdomen pelvis without contrast was negative for acute findings. Blood cultures were obtained in the ED, no source of infection has been identified thus far. He did have a temperature of 99.3 upon arrival to ED, given his leukocytosis, elevated procalcitonin and mild elevation in temperature he was started on antibioticscefepime. We will need to admit for further evaluation and management of syncope, VIANNEY. 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 - Family History Father -: Other (see notes) Notes: CHF Mother -: Cancer Notes: breast cancer Sister -: Cancer Notes: colon cancer Brother -: Cancer Notes: throat cancer - Social History Alcohol use: No CD- Drugs: No Caffeine use: Yes Place of Residence: Home <Frank Ballard - Last Filed: 07/09/22 01:59> Date of Service: 07/09/22 <Sebastian Jules - Last Filed: 07/10/22 00:13> Allergies No Known Allergies Allergy (Verified 01/13/21 22:24) Home Medications: Gabapentin [Neurontin*] 2 cap PO TID 12/02/16 glipiZIDE [Glucotrol] 10 mg PO DAILY 11/10/17 Aripiprazole [Abilify] 30 mg PO DAILY 08/28/20 Atorvastatin Calcium [Lipitor] 40 mg PO BEDTIME 08/28/20 Rivaroxaban [Xarelto*] 20 mg PO DAILY 6PM 08/28/20 Spironolactone [Aldactone] 25 mg PO DAILY #30 tablet 09/23/20 Albuterol Neb [Proventil 0.083% Neb Soln] 2.5 mg NEB Q6HP PRN #120 amp 04/21/21 Folic Acid 1 mg PO DAILY 05/11/22 Furosemide [Lasix*] 60 mg PO TID 05/11/22 Magnesium Oxide 420 mg PO DAILY 05/11/22 Metoprolol Succinate [Toprol Xl*] 50 mg PO DAILY 05/11/22 levoFLOXacin [Levaquin] 500 mg PO DAILY #7 tab 05/15/22 Review of Systems 10-point ROS is otherwise unremarkable General: Weakness, Malaise Cardiovascular: Other (Syncope), As per HPI <Frank Ballard - Last Filed: 07/09/22 01:59> Physical Examination - Physical Exam General: Alert, In no apparent distress, Oriented x3 HEENT: Atraumatic, PERRLA, Mucous membr. moist/pink, EOMI, Sclerae nonicteric Neck: Supple, 2+ carotid pulse no bruit, No LAD, Without JVD or thyroid abnormality Respiratory: Clear to auscultation bilaterally, Diminished Cardiovascular: No edema, Regular rate/rhythm, Normal S1 S2 Capillary refill: <2 Seconds Gastrointestinal: Normal bowel sounds, No tenderness Musculoskeletal: No tenderness Integumentary: No rashes Neurological: Normal speech, Normal strength at 5/5 x4 extr, Normal tone, Normal affect - Studies Laboratory Data (last 24 hrs) 07/08/22 22:56: PT 13.1 H, INR 1.19, APTT 30.9 07/08/22 22:56: Sodium 139, Potassium 4.4, BUN 49 H, Creatinine 2.19 H, Glucose 227 H, Total Bilirubin 0.3, AST 21, ALT 15 L, Alkaline Phosphatase 89 07/08/22 22:56: WBC 14.60 H, Hgb 11.8 L, Hct 36.1 L, Plt Count 171 <Frank Ballard - Last Filed: 07/09/22 01:59> Assessment and Plan - Plan Assessment: VIANNEY on CKD 3 Syncope/fall SIRS criteria, elevated procalcitonin Atrial fibrillation on chronic anticoagulation therapy Diabetes mellitus type [id number] Chronic diastolic congestive heart failure COPD CAD with prior CABG-pacemaker in place Hypertension Plan: VIANNEY on CKD 3 Nephrology consulted, continue gentle hydration overnight. CPK moderately elevated we will continue to trend. Will obtain renal ultrasound as well. Appreciate further input from nephrology, does not appear grossly overloaded at this time. Syncope/fall Unclear etiology, will place cardiology consult, obtain echocardiogram and attempt to interrogate patient's pacemaker. CT of the head was negative for acute findings. Patient unclear about events leading up to syncope. Will trend troponins, monitor on telemetry. Also will have patient evaluated by PT. SIRS criteria, elevated procalcitonin Labs showed leukocytosis, moderately elevated procalcitonin level. His temperature initially was 99.5. His infectious work-up thus far has been negative including chest x-ray, urinalysis, CT chest abdomen pelvis without contrast, swabs for influenza/COVID. Reviewed patient's previous cultures, he has never had positive blood or urine cultures. Patient placed on anti bioticscefepime empirically. Monitor CBC. Could be reactive. Atrial fibrillation on chronic anticoagulation therapy Continue Xarelto, other home medications. Monitor on telemetry. Diabetes mellitus type [id number] Mild sliding scale insulin Chronic diastolic congestive heart failure Does not appear grossly overloaded at this time, takes Lasix 60 mg daily at home per . We will continue gentle hydration overnight, appreciate further from nephrology/cardiology. COPD As needed nebulizer treatments. No active exacerbation or respiratory stress noted. CAD with prior CABG-pacemaker in place Noted, continue home medications, will attempt pacemaker interrogation. Hypertension Continue home medications as appropriate. DVT PPX: Continue Xarelto Code status: Full Discharge Plan: Home Plan to discharge in: Greater than 2 days - Advance Directives Does patient have a Living Will: No Does patient have a Durable POA for Healthcare: No - Code Status/Comfort Care Code Status Assessed: Yes (Full code) Critical Care: No Time Spent Managing Pts Care (In Minutes): 70 <Frank Ballard - Last Filed: 07/09/22 01:59> - Plan agree with plan of care as noted above examined patient on rounds this morning, ok / ffeels better no significant change yet <Sebastian Jules - Last Filed: 07/10/22 00:13>
[2022-07-09] MEDS ORDERED: NA CHLORIDE 0.9% 1,000 ML ONE (02:18)
[2022-07-09] MEDS: NA CHLORIDE 0.9% 1,000 ML IV SCH ×2 (02:45→15:17)
[2022-07-09 04:57] LABS: Absolute Lymphocytes (CBC) 0.8 K/uL (0.7-4.9); Hematocrit 32.9 % (39.6-49.0); Lymphocytes % 5.5 % (15.3-44.8); MCV 86.5 fL (80-100); MPV 8.4 fL (7.6-11.3)
[2022-07-09 05:21] LABS: Potassium 4.2 mmol/L (3.5-5.1); Thyroid Stimulating Hormone 0.236 uIU/mL (0.358-3.740)
[2022-07-09 05:25] LABS: Troponin High Sensitivity 291.8 pg/mL (<58.9)
[2022-07-09] MEDS: INSULIN -REGULAR HUMAN 50 UNIT/0.5 ML ML SQ SCH ×4 (07:30→21:00)
[2022-07-09] MEDS: CEFEPIME 1 GM in NA CHLORIDE 0.9% 100 ML IV SCH ×2 (07:50→21:00)
--- NOTE | 2022-07-09 08:04 | RAD REPORT ---
EXAM DESCRIPTION: US - Renal Ultrasound-Complete - 07/09/2022 2:39 am CLINICAL HISTORY: VIANNEY COMPARISON: CT abdomen and pelvis 05/15/2022. Abdominal ultrasound 05/10/2022 TECHNIQUE: Sonographic grayscale and color flow images of the kidneys and bladder were obtained. FINDINGS: Both kidneys are normal in size, shape and echotexture. The right kidney measures 10.3 centimeter in length. No hydronephrosis, focal mass or perinephric flu id. The left kidney measures 10.5 centimeter in length. No hydronephrosis, focal mass or perinephric flui d. Re- demonstration of simple appearing thin-walled bilateral renal cysts, the largest is at the lower pole lobulated, measuring 2.8 centimeter in greatest dimension. The urinary bladder is incompletely distended without gross abnormality seen. IMPRESSION: No hydronephrosis or echogenic calculi. Bilateral renal cysts again noted.
--- NOTE | 2022-07-09 14:07 | RAD REPORT ---
EXAM DESCRIPTION: RAD - Chest Single View - 07/08/2022 10:54 pm CLINICAL HISTORY: Fall COMPARISON: 05/10/2022. TECHNIQUE: XR CHEST 1 VIEW 07/08/2022 10:32 PM [employer] FINDINGS: The heart is mildly enlarged. Sternotomy was performed. Left dual-chamber pacemaker is pre sent. There is minimal bibasilar atelectasis. There is no pleural effusion. There is no pneumothorax. There are no acute osseous findings. IMPRESSION: No definite pneumonia. Electronically signed by: Kike Moya MD 07/08/2022 11:30 PM [employer] Due to temporary technical issues with the PACS/Fluency reporting system, reports are being signed by the in house radiologists without review as a courtesy to insure prompt reporting. The interpreting radiologist is fully responsible for the content of the report.
--- NOTE | 2022-07-09 14:09 | RAD REPORT ---
EXAM DESCRIPTION: CT - Head C Spine Cap Wo Con - 07/09/2022 6:42 am CLINICAL HISTORY: TRAUMA COMPARISON: 05/10/2022. TECHNIQUE: CT HEAD CERVICAL SPINE CHEST ABDOMEN PELVIS WITHOUT IV CONTRAST on 07/08/2022 10:52 PM GLOBAL LOGISTICS ANALYST This exam was performed according to our departmental dose-optimization program, which includes autom ated exposure control, adjustment of the mA and/or kV according to patient size and/or use of iterati ve reconstruction technique. FINDINGS: Brain: There is no acute hemorrhage, mass effect or midline shift. Quinteros-white differentiat ion is preserved. There is no hydrocephalus. There is mild diffuse cerebral atrophy. The calvarium is intact. Orbits and globes are unremarkable. The paranasal sinuses are clear. Mastoid air cells are clear. Cervical Spine: There is no acute fracture. Alignment is anatomic. Disc spaces are maintained. Vertebral body heights are preserved. Soft tissues are unremarkable. Vascular: Thoracic aorta is normal in course and caliber without aneurysm or dissection. Pulmonary ar teries are adequately opacified without acute or chronic filling defects. Abdominal aorta is densely calcified without aneurysm. Pelvic arteries are patent without aneurysm or occlusion. Chest: The heart is normal in size following sternotomy. Left dual-chamber pacemaker is present. Ther e is no pericardial effusion. Intrathoracic lymph nodes are not enlarged. There is no pleural effusion, pleural thickening or pneumothorax. Central airways are patent. There a re changes but nodular opacities throughout the lower lobes as well as the right middle and right upp er lobe. Abdomen: The liver is normal in appearance. There is no biliary dilatation. Gallbladder is normal in appearance. The pancreas and spleen are normal in appearance. Adrenal glands are normal. Lower pole n ot calcified right renal cyst measures 3.3 cm. Lower pole partially calcified cyst measures 3.7 cm. There is no free air. There is no retroperitoneal adenopathy. Pelvis: There is large amount of stool throughout the colon. Urinary bladder is unremarkable. There i s no free fluid. Appendix is normal. Left pelvic partially complex cystic structure measures 5.7 cm a nd is unchanged. Skeleton: There are no acute osseous findings. No suspicious bony lesions. There is a mild to moderat e upper endplate compression fracture of L4. This was present previously. IMPRESSION: No definite acute posttraumatic findings. Electronically signed by: Kike Moya MD 07/08/2022 11:54 PM GLOBAL LOGISTICS ANALYST Due to temporary technical issues with the PACS/Fluency reporting system, reports are being signed by the in house radiologists without review as a courtesy to insure prompt reporting. The interpreting radiologist is fully responsible for the content of the report.
--- NOTE | 2022-07-09 16:37 | EKG ---
Test Date: 2022-07-09 Test Time: 00:30:36 Process Control Board Operator: MIKEL MEASUREMENT RESULTS: Intervals: Rate: 83 [place]: 200 QRSD: 142 QT: 402 QTc: 472 [place]: P: 78 [place]: 200 QRS: -79 T: 76 INTERPRETIVE STATEMENTS: Normal sinus rhythm Left axis deviation Right bundle branch block Septal infarct, age undetermined Abnormal ECG Compared to ECG 05/10/2022 00:02:25 Right bundle-branch block now present Myocardial infarct finding now present Electronically Signed On 07-09-22 16:35:47 CONCRETE PIPE PLANT SUPERVISOR by Raffi Conte
[2022-07-09] MEDS ORDERED: RIVAROXABAN 10 MG TABLET PO SCH (18:00)
[2022-07-09] MEDS: RIVAROXABAN 20 MG TABLET PO SCH (18:00)
[2022-07-09] MEDS: ATORVASTATIN 40 MG TAB PO SCH (21:00)
[2022-07-09] MEDS ORDERED: ATORVASTATIN 20 MG TAB ONE (23:28)
--- NOTE | 2022-07-10 00:13 | CON ---
Date of Consultation: 07/09/2022 Reason For Consultation: Elevated troponin and syncope. History Of Present Illness: This is a 71-year-old male who presented to the emergency room with sync ope. He has history of coronary artery disease status post CABG, hypertension, dyslipidemia, chronic kidney disease, diastolic heart failure, atrial fibrillation, COPD, diabetes, and obstructive sleep apnea. He presented with fall and questionable syncopal episode. The patient reported that he woke up to get to use the restroom and while he was attempting to urinate, he passed out. He was on the f ryan for a short period of time and then he was brought into the emergency room. He denies having an y chest pain or shortness of breath. No other complaints. Past Medical History: As outlined above in HPI. Medications: Refer to reconciliation sheet for detailed list. Allergies: NO KNOWN DRUG ALLERGIES. Family History: No premature coronary artery disease or cancer. Social History: He does not smoke or drink. Does not use any drugs. Review of Systems: All systems reviewed and they were negative. Physical Examination: Vital Signs: Reviewed. Head And Neck: Pupils are equal and reactive to light. Intact eye movements. No JVD. No cervical lymphadenopathy. Neck is supple. Thyroid is not enlarged. Lungs: Clear to auscultation bilaterally. No rhonchi, wheezing , or crackles. No accessory muscle use. Heart: Regular rate and rhythm. No extra sounds. Abdomen: Soft, nontender. Bowel sounds positive. No organomegaly. No masses or hernia. No rigidi ty or rebound. Extremities: No clubbing or cyanosis. Intact pulses. Skin: No rash. Neuro: Alert, awake, and oriented x3. No acute focal deficits appreciated. Investigations: BUN 46, creatinine 1.66. Initially BUN 49, creatinine 2.1. Troponin peak is 269, b ut CK was 5000 range. Assessment/recommendation: 1.Elevated troponin, likely due to rhabdomyolysis. The patient has no chest pain and troponin is tr ending down. Obtain an echo during this hospital stay. 2.Syncope, likely due to dehydration. The patient was in acute renal failure. After proper hydrati on, BUN and creatinine have improved. Recommend gentle hydration overnight and reassess labs in the morning. 3.Dyslipidemia. Continue statin. 4.Atrial fibrillation. This condition is controlled. Continue current therapy including Xarelto. 5.Elevated troponin, likely due to rhabdomyolysis and obtain echo as outlined above. SR/MODL Voice ID: [id number] Report ID: [id number]
--- NOTE | 2022-07-10 01:47 | CON ---
Date of Consultation: 07/09/2022 Chief Complaint: Acute kidney injury. History Of Present Illness: The patient has history of chronic kidney disease stage 3. Baseline cre atinine level was ranging from 1.0 to 1.2. The patient was found to have an elevated BUN and creatin ine. On admission, level was 2.19 and BUN 49. Electrolytes as follows: Sodium 139, potassium 4.4, chloride 107, CO2 27, glucose 227, calcium 9.5. The patient was found to have elevated troponin leve l of 276 and BNP 1334. The patient has history of cardiorenal syndrome. Renal ultrasound was done a nd did not show obstructive uropathy. The patient was found to have kidney cyst and comparison was d one with CT scan from previous admission. There was no hydronephrosis, no echogenic calculi. Bilate ral renal cysts were again noted. The patient is a 71-year-old man with history of coronary artery d isease, previous CABG, hypertension, hyperlipidemia, chronic kidney disease stage 3, chronic diastoli c congestive heart failure, atrial fibrillation on anticoagulation with Xarelto, COPD, diabetes melli tus type 2, and obstructive sleep apnea. The patient presented to emergency room after he sustained a fall and likely had a syncopal episode. The patient is not a good historian, although the patient reported that he got up to walk in the bathroom and while standing from the toilet, attempting to uri wu, he passed out. He denied kidney colic and he denied hematuria. Denies fever or chills. CT sc an of the chest, abdomen, and pelvis without contrast was done and all of them were negative except c hronic changes including kidney cyst, but there was no hydronephrosis. Blood cultures were obtained and pending. CPK level was elevated up to 753. Troponin was elevated up to 76. Review of Systems: General: The patient denies fever or chills. Eyes: Denies vision changes. Ears, Nose, Mouth, And Throat: Denies sore throat or earache. Respiratory: Denies PND or orthopnea. Cardiovascular: Denies chest pain. He had syncope at home. GI: Denies nausea, vomiting, melena, or hematemesis. Musculoskeletal: He is complaining of lower back pain and generalized muscle soreness. Past Medical History: Hypertension, diabetes mellitus type 2, posttraumatic stress disease, anxiety, hepatitis C, hyperlipidemia, coronary artery disease status post stent placement, atrial fibrillatio n, chronic diastolic congestive heart failure, obstructive sleep apnea, obesity, diabetic neuropathy, history of pancreatitis, COPD, tobacco abuse, tumor removal from his fingers, angioplasty in 1989, c ardiac stent placement in 2013, and pacemaker. Family History: Father had congestive heart failure. Mother had cancer of the breast. Sister with cancer of the colon. Brother with throat cancer. Social History: Denies tobacco, alcohol, or illicit drugs. Physical Examination: General: The patient is awake, alert, follows commands. Eyes: Anicteric sclerae. EOMI. Ears, Nose, Mouth, And Throat: Oral mucosa moist. No pallor. Neck: Supple. No bruits. Lungs: Clear to auscultation bilaterally. No wheezing. No rhonchi. Heart: S1, S2. No pericardial friction or rub. Abdomen: Obese, soft, nontender. No rebound. No guarding. Extremities: Edema present in both ankles. Impression And Plan: 1.Acute kidney injury. Renal function is gradually improving. The patient was started on gentle hy dration. Monitor electrolytes and continue IV fluids. In view of elevated CK level, the patient nee ds IV fluids to prevent worsening of the renal function due to rhabdomyolysis. 2.Lab showed elevated leukocytosis. Continue broad-spectrum antibiotic and monitor culture results from the urine and blood. The patient was started on cefepime empirically. 3.Atrial fibrillation, on anticoagulation on Xarelto. 4.Diabetes mellitus. Continue insulin. 5.Status post fall. The patient will need cardiac evaluation to rule out arrhythmia and active meaghan nary artery disease. 6.Hypertension. Continue blood pressure medication. Monitor electrolytes. 7.Chronic congestive diastolic heart failure. The patient was taking Lasix at home. Currently, the patient will require gentle hydration. Lasix is on hold. EB/MODL Voice ID: [id number] Report ID: [id number]
[2022-07-10 02:56] LABS: Absolute Lymphocytes (CBC) 1.2 K/uL (0.7-4.9); Hematocrit 32.7 % (39.6-49.0); Lymphocytes % 12.2 % (15.3-44.8); MCV 86.2 fL (80-100); MPV 8.7 fL (7.6-11.3)
[2022-07-10 03:34] LABS: Potassium 3.8 mmol/L (3.5-5.1)
[2022-07-10] MEDS: ACETAMINOPHEN 500 MG TAB PO PRN ×2 (03:46→14:11)
[2022-07-10] MEDS: NA CHLORIDE 0.9% 1,000 ML IV SCH ×2 (04:08→14:12)
[2022-07-10] MEDS ORDERED: ACETAMINOPHEN 500 MG TAB ONE ×2 (04:14→14:14)
[2022-07-10] MEDS ORDERED: NA CHLORIDE 0.9% 1,000 ML ONE ×2 (04:15→14:14)
[2022-07-10 05:14] VITALS: BMI 32.5
[2022-07-10] MEDS: INSULIN -REGULAR HUMAN 50 UNIT/0.5 ML ML SQ SCH ×4 (07:30→21:00)
[2022-07-10] MEDS: CEFEPIME 1 GM in NA CHLORIDE 0.9% 100 ML IV SCH ×2 (09:00→21:46)
[2022-07-10] MEDS ORDERED: CEFEPIME 1 GM/VIAL ONE (09:09)
[2022-07-10] MEDS ORDERED: NA CHLORIDE 0.9% 100 ML ONE (09:10)
--- NOTE | 2022-07-10 17:31 | EKG ---
Test Date: 2022-07-10 Test Time: 10:16:04 Director Global Strategic Publisher Sales: ANGELA MEASUREMENT RESULTS: Intervals: Rate: 66 [place]: 188 QRSD: 140 QT: 402 QTc: 421 [place]: P: 84 [place]: 188 QRS: -65 T: -9 INTERPRETIVE STATEMENTS: Electronic atrial pacemaker Left axis deviation Left bundle branch block Abnormal ECG Compared to ECG 07/09/2022 00:30:36 Left bundle-branch block now present Sinus rhythm no longer present Right bundle-branch block no longer present Myocardial infarct finding no longer present Electronically Signed On 07-10-22 17:30:38 ASSOCIATE PROFESSOR OF ENGINEERING by Raffi Conte
[2022-07-10] MEDS: RIVAROXABAN 20 MG TABLET PO SCH (17:32)
[2022-07-10] MEDS ORDERED: RIVAROXABAN 20 MG TABLET PO ONE (17:35)
--- NOTE | 2022-07-10 19:08 | P.PN ---
Subjective Date of Service: 07/10/22 Chief Complaint: Syncope, VIANNEY Patient denies any chest pain or shortness of breath. He is complaining of generalized weakness Physical Examination - Vital Signs Temperature: 98.2 F Blood Pressure: 139/75 Pulse: 60 Respirations: 18 Pulse Ox (%): 94 - Studies Microbiology Data (last 24 hrs): 07/09/22 00:17 Clean Catch Urine Gully Count - Final <10,000 CFU/ML. 07/09/22 00:17 Clean Catch Urine - Final MIXED ODIN. Assessment And Plan - Current Problems (Diagnosis) (1) Syncope Current Visit: Yes Status: Acute (2) Cardiac pacemaker in situ Current Visit: Yes Status: Acute (3) Impaired mobility Current Visit: Yes Status: Acute (4) Chronic systolic heart failure Current Visit: Yes Status: Acute (5) Chronic kidney disease, stage 3 Current Visit: No Status: Acute (6) Afib Current Visit: No Status: Chronic Qualifiers: Atrial fibrillation type: paroxysmal Qualified Code(s): I48.0 - Paroxysmal atrial fibrillation (7) Diabetes mellitus Onset Date: 12/03/16 Current Visit: No Status: Chronic (8) Obesity Onset Date: 11/11/17 Current Visit: No Status: Chronic Qualifiers: Obesity type: due to excess calories Obesity classification: adult class 3 (BMI >= 40) Serious obesity comorbidity presence: with serious comorbidity Body mass index: BMI 40.0-44.9 Qualified Code(s): E66.01 - Morbid (severe) obesity due to excess calories; Z68.41 - Body mass index [BMI] 40.0-44.9, adult (9) Obstructive sleep apnea Onset Date: 11/11/17 Current Visit: No Status: Chronic - Plan Physical Exam General: Alert, In no apparent distress, Oriented x3 HEENT: Atraumatic, PERRLA, Mucous membr. moist/pink, EOMI, Sclerae nonicteric Neck: Supple, 2+ carotid pulse no bruit, No LAD, Without JVD or thyroid abnormality Respiratory: Clear to auscultation bilaterally, Diminished Cardiovascular: No edema, Regular rate/rhythm, Normal S1 S2 Capillary refill: <2 Seconds Gastrointestinal: Normal bowel sounds, No tenderness Musculoskeletal: No tenderness Integumentary: No rashes Neurological: Normal speech, Normal strength at 5/5 x4 extr, Normal tone, Normal affect Plan: Patient presenting with syncope. Troponin slightly elevated and trended flat. Patient seen and evaluated by cardiology. EKG and telemetry shows paced rhythm. Recommended pacemaker interrogation. Patient generally weak and ambulating only 30 feet with a rolling walker. Continue PT. Patient may need placement for acute versus skilled rehab. Continue other home medications. Continue aspirin and Plavix. Last echo In 2019 shows normal EF. Repeat echocardiogram. Insulin sliding scale for glucose management. Hold metformin and glipizide.
[2022-07-10] MEDS: ATORVASTATIN 40 MG TAB PO SCH (21:47)
[2022-07-10] MEDS: THIAMINE HCL 100 MG TABLET PO SCH (21:53)
[2022-07-11] MEDS: METOPROLOL XL 50 MG TAB PO SCH ×2 (01:05→05:20)
--- NOTE | 2022-07-11 01:35 | PN ---
Date of Progress Note: 07/10/2022 Chief Complaint: Acute kidney injury. History Of Present Illness: The patient has chronic kidney disease stage 3. Baseline creatinine lev el was ranging from 1.0 to 1.2. Patient was found to have elevated BUN and creatinine. On admission , creatinine level was 2.19 and BUN 49. Electrolytes as follows: Sodium 139, potassium 4.4, chlorid e 107, CO2 of 27, glucose 227, calcium 9.5. Patient was found to have elevated troponin and elevated CK level. Renal ultrasound was done and did not show obstructive uropathy. Patient was found to gupta ve kidney cyst and comparison was done with CT scan from previous admission. There was no hydronephr osis. No echogenic calculi. Bilateral renal cysts were again noted. Past Medical History: The patient has history of coronary artery disease, previous history of CABG; hyperlipidemia; chronic kidney disease stage 3; atrial fibrillation, on Xarelto. Review of Systems: Patient is feeling better. Denies chest pain, palpitation. He is complaining of lower back pain and was medicated for pain. Physical Examination: Lungs: Clear to auscultation bilaterally. Heart: S1, S2. Abdomen: Soft. Extremities: Edema present in both ankles, mild. Impression And Plan: 1.Acute kidney injury. Renal function is gradually improving. Patient was started on gentle hydrat ion. Plan is to monitor electrolytes. Continue IV fluids in view of elevated CK level. Patient need s IV fluids to prevent worsening of renal function due to rhabdomyolysis. 2.Lab work showed elevated leukocytosis. Continue broad-spectrum antibiotic and monitor culture res ults from urine. Patient was started on cefepime empirically. 3.Atrial fibrillation per Cardiology. 4.Diabetes mellitus. Continue insulin. The patient is not a candidate for metformin due to kidney insufficiency. 5.Status post fall. Patient will need cardiac evaluation to rule out arrhythmia and coronary artery disease and Cardiology consultation was obtained. 6.Chronic congestive heart failure. Patient was taking Lasix at home. Currently, patient will requ edilma gentle hydration to prevent acute kidney injury worsening due to rhabdomyolysis. Monitor CK leve l and check magnesium and phosphorus level. EB/MODL Voice ID: [id number] Report ID: [id number]
[2022-07-11] MEDS: NA CHLORIDE 0.9% 1,000 ML IV SCH ×2 (05:20→07:17)
[2022-07-11 05:22] LABS: Specific Gravity 1.013 (1.005-1.030); Urine Bacteria None Seen /HPF (<20); Urine Bilirubin NEGATIVE (Negative); Urine Blood 2+ (Negative); Urine Clarity Clear (Clear); Urine Color Colorless (Yellow); Urine Glucose NEGATIVE (Negative); Urine Protein 1+ (Negative); Urine RBC None Seen /HPF (None Seen); Urine Urobilinogen Normal (Normal); Urine pH 6.5 (5.0-7.0)
[2022-07-11 05:54] LABS: Absolute Lymphocytes (CBC) 1.1 K/uL (0.7-4.9); Hematocrit 33.2 % (39.6-49.0); Lymphocytes % 11.1 % (15.3-44.8); MCV 86.5 fL (80-100); MPV 8.3 fL (7.6-11.3); RBC Red Blood Cell Count 3.84 M/uL (4.33-5.43)
[2022-07-11 05:59] LABS: Magnesium 2.2 mg/dL (1.6-2.4); Potassium 3.9 mmol/L (3.5-5.1)
[2022-07-11] MEDS: HYDRALAZINE HCL 20 MG/ML VIAL IV PRN ×2 (06:53→22:24)
[2022-07-11] MEDS: INSULIN -REGULAR HUMAN 50 UNIT/0.5 ML ML SQ SCH ×4 (07:30→21:00)
[2022-07-11] MEDS: CEFEPIME 1 GM in NA CHLORIDE 0.9% 100 ML IV SCH (08:30)
[2022-07-11] MEDS: THIAMINE HCL 100 MG TABLET PO SCH (08:30)
[2022-07-11] MEDS ORDERED: POTASSIUM CL 40 MEQ in NA CHLORIDE 0.9% 500 ML IV SCH (13:00)
--- NOTE | 2022-07-11 14:17 | PN ---
Date of Progress Note: 07/11/2022 Subjective: The patient was admitted to the hospital with acute kidney injury secondary to prerenal, dehydration. The patient started on IV fluid. Kidney function has been improved significantly. No complaint. No nausea. No vomiting. The patient had some rhabdo, continued on hydration. Physical Examination: Vital Signs: Blood pressure 156/61, pulse of 61, afebrile. Chest: Clear to auscultation. Heart: S1, S2. Regular. Abdomen: Soft, nontender. Extremity: Venous stasis change. Trace edema. Neurologic: Alert. Pleasantly confused. Laboratory Data: Hemoglobin 11. Sodium 140, potassium 3.9, bicarb 25, BUN 23, creatinine 1.1, GFR of 66, calcium 9.6, phosphorus 2, magnesium 2.2. Current Medications: The patient on include; 1. Cefepime. 2. Xarelto. 3. Atorvastatin. 4. Metoprolol 50. 5. Tylenol. 6. Normal saline 75 per hour. Assessment And Plan: 1. Acute kidney injury, multifactorial, secondary to prerenal, superimposed with rhabdomyolysis, recovered, resolved. Obstructive uropathy has been ruled out. We will continue hydration. 2. Rhabdomyolysis. CK continued to trend down. I am going to continue with hydration for the time being. 3. Hypokalemia with the presence of rhabdomyolysis. I am going to supplement even with marginal low potassium right now. 4. Hypertension, controlled, optimal. Continue to monitor the patient. The patient on beta-mariaa currently. I am going to go ahead and add Norvasc 5 mg and we will follow up the patient. time spend exam the patient face to face reviewing data lab and radiology , placing order , discussing with the patient and nursing staff , discussing with hospitalist >35 min TERESA Voice ID: [id number] Report ID: [id number] BETSEY
[2022-07-11] MEDS: KCL 20 MEQ/100 mL IVPB 100 ML IV SCH ×2 (15:00→15:24)
--- NOTE | 2022-07-11 15:47 | P.PN ---
Subjective Date of Service: 07/11/22 Chief Complaint: Syncope, VIANNEY Patient has no new complaints today. He was seen sitting in a chair No issues overnight. He denies shortness of breath. Physical Examination - Vital Signs Temperature: 97.7 F Blood Pressure: 145/61 Pulse: 65 Respirations: 14 Pulse Ox (%): 94 Assessment And Plan - Current Problems (Diagnosis) (1) Syncope Current Visit: Yes Status: Acute (2) Cardiac pacemaker in situ Current Visit: Yes Status: Acute (3) Impaired mobility Current Visit: Yes Status: Acute (4) Chronic systolic heart failure Current Visit: Yes Status: Acute (5) Afib Current Visit: No Status: Chronic Qualifiers: Atrial fibrillation type: paroxysmal Qualified Code(s): I48.0 - Paroxysmal atrial fibrillation (6) Diabetes mellitus Onset Date: 12/03/16 Current Visit: No Status: Chronic (7) Obesity Onset Date: 11/11/17 Current Visit: No Status: Chronic Qualifiers: Obesity type: due to excess calories Obesity classification: adult class 3 (BMI >= 40) Serious obesity comorbidity presence: with serious comorbidity Body mass index: BMI 40.0-44.9 Qualified Code(s): E66.01 - Morbid (severe) obesity due to excess calories; Z68.41 - Body mass index [BMI] 40.0-44.9, adult (8) Obstructive sleep apnea Onset Date: 11/11/17 Current Visit: No Status: Chronic (9) Acute worsening of stage 3 chronic kidney disease Current Visit: Yes Status: Acute - Plan Physical Exam General: Alert, In no apparent distress, Oriented x3 HEENT: Atraumatic, Sclerae nonicteric Neck: Supple, no elevated JVD Respiratory: Clear to auscultation bilaterally, Diminished Cardiovascular: No edema, Regular rate/rhythm, Normal S1 S2 Gastrointestinal: Normal bowel sounds, No tenderness Musculoskeletal: No tenderness Integumentary: Bilateral venous stasis dermatitis. Neurological: Normal speech, Normal strength at 5/5 x4 extr, Normal tone, Normal affect Plan: Troponin slightly elevated and trended flat. Patient seen and evaluated by cardiology. EKG and telemetry shows paced rhythm. Recommended pacemaker interrogation. Patient generally weak and needing assistance with ambulation. reports patient has fallen multiple times due to weakness. Dehydration contributing to patient's symptoms. VIANNEY resolved. Nephrology input appreciated Continue PT. Patient and family looking at acute rehab placement. Continue other home medications. Continue aspirin and Plavix. Last echo In 2019 shows normal EF. Insulin sliding scale for glucose management. Continue to hold metformin and glipizide. Leukocytosis resolved. No clear evidence of pneumonia. UA negative for UTI. Will discontinue antibiotics.
[2022-07-11] MEDS: RIVAROXABAN 20 MG TABLET PO SCH (17:52)
--- NOTE | 2022-07-11 21:07 | PN ---
Date of Progress Note: 07/10/2022 Subjective: Seen by bedside. He is doing clinically well. No chest pain. Review of Systems: No chest pain, shortness of breath, orthopnea, or cough. No nausea, vomiting, or diarrhea. All othe r systems reviewed, they were negative. Physical Examination: Vital signs: Reviewed. Head and Neck: Pupils are equal, reactive to light. Intact eye movements. No JVD. No cervical lym phadenopathy. Neck is supple. Thyroid is not enlarged. Lungs: Clear to auscultation bilaterally. No rhonchi, wheezing, or crackles. No accessory muscle u se. Heart: Regular rate and rhythm. No extra sounds. Abdomen: Soft, nontender. Bowel sounds positive. No organomegaly. No masses or hernia. No rigidi ty or rebound. Extremities: No edema, clubbing, or cyanosis. Intact pulses. Skin: No rash. Neurologic: Alert, awake, oriented x3. No acute focal deficits appreciated. Lymph Nodes: No cervical or axillary lymphadenopathy. Investigations: BUN 30, creatinine 1.25. Assessment And Recommendation: 1.Elevated troponin due to rhabdomyolysis and demand ischemia. No further cardiac workup is needed for the patient. We will plan for outpatient evaluation with a stress test and an echo. 2.Syncope due to dehydration and his dizziness has resolved. 3.Acute renal failure due to dehydration, resolved. 4.Atrial fibrillation, controlled. Continue current management and cardiology will sign off. SR/MODL Voice ID: [id number] Report ID: [id number]
[2022-07-11] MEDS: ATORVASTATIN 40 MG TAB PO SCH (22:24)
[2022-07-11] MEDS ORDERED: MELATONIN 5 MG TABLET PO PRN (23:39)
[2022-07-12 03:48] LABS: Potassium 3.8 mmol/L (3.5-5.1)
[2022-07-12] MEDS: METOPROLOL XL 50 MG TAB PO SCH (05:04)
[2022-07-12] MEDS: INSULIN -REGULAR HUMAN 50 UNIT/0.5 ML ML SQ SCH ×4 (07:30→20:31)
[2022-07-12] MEDS: THIAMINE HCL 100 MG TABLET PO SCH (08:44)
[2022-07-12] MEDS: AMLODIPINE 5 MG TAB PO SCH (08:44)
--- NOTE | 2022-07-12 15:50 | PN ---
Date of Progress Note: 07/12/2022 Subjective: The patient was admitted to the hospital with acute kidney injury, rhabdomyolysis, and h ypokalemia. The patient was started on hydration. Kidney function has been normalized. The patient feeling better. Physical Examination: Vital Signs: Blood pressure 130/50, pulse of 59, afebrile. Chest: Clear to auscultation. Heart: S1, S2 . 1.Continue current treatment. Keep avoiding any ONELIA inhibitor or ARB for the time being. 2.Rhabdomyolysis as above. TERESA Voice ID: [id number] Report ID: [id number]
--- NOTE | 2022-07-12 16:40 | P.PN ---
Subjective Date of Service: 07/12/22 Chief Complaint: Syncope, VIANNEY Patient has no new complaints today. He was seen sitting at the edge of his bed. He denies shortness of breath. Physical Examination - Vital Signs Temperature: 98.1 F Blood Pressure: 166/71 Pulse: 59 Respirations: 17 Pulse Ox (%): 98 Assessment And Plan - Current Problems (Diagnosis) (1) Syncope Current Visit: Yes Status: Acute (2) Cardiac pacemaker in situ Current Visit: Yes Status: Acute (3) Impaired mobility Current Visit: Yes Status: Acute (4) Chronic systolic heart failure Current Visit: Yes Status: Acute (5) Afib Current Visit: No Status: Chronic Qualifiers: Atrial fibrillation type: paroxysmal Qualified Code(s): I48.0 - Paroxysmal atrial fibrillation (6) Diabetes mellitus Onset Date: 12/03/16 Current Visit: No Status: Chronic (7) Obesity Onset Date: 11/11/17 Current Visit: No Status: Chronic Qualifiers: Obesity type: due to excess calories Obesity classification: adult class 3 (BMI >= 40) Serious obesity comorbidity presence: with serious comorbidity Body mass index: BMI 40.0-44.9 Qualified Code(s): E66.01 - Morbid (severe) obesity due to excess calories; Z68.41 - Body mass index [BMI] 40.0-44.9, adult (8) Obstructive sleep apnea Onset Date: 11/11/17 Current Visit: No Status: Chronic (9) Acute worsening of stage 3 chronic kidney disease Current Visit: Yes Status: Acute - Plan Physical Exam General: Alert, In no apparent distress, Oriented x3 Neck: Supple, no elevated JVD Respiratory: Clear to auscultation bilaterally, Diminished Cardiovascular: No edema, Regular rate/rhythm, Normal S1 S2 Gastrointestinal: Normal bowel sounds, No tenderness Musculoskeletal: No tenderness Integumentary: Bilateral venous stasis dermatitis. Neurological: Normal speech, Normal strength at 5/5 x4 extr. Plan: Troponin slightly elevated and trended flat. Patient seen and evaluated by cardiology. EKG and telemetry shows paced rhythm. Patient syncope likely secondary to weakness and dehydration. Cardiology signed off Patient generally weak and needing assistance with ambulation. reports patient has fallen multiple times due to weakness. Dehydration contributing to patient's symptoms. VIANNEY resolved. Nephrology is following Continue PT. Continue other home medications. Continue aspirin and Plavix. Last echo In 2019 shows normal EF. Insulin sliding scale for glucose management. Continue to hold metformin and glipizide. Leukocytosis resolved. No clear evidence of pneumonia. UA negative for UTI. Off antibiotics. Insurance denied acute rehab. 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
[2022-07-12] MEDS: RIVAROXABAN 20 MG TABLET PO SCH (17:27)
[2022-07-12] MEDS: ATORVASTATIN 40 MG TAB PO SCH (20:31)
[2022-07-12] MEDS ORDERED: MELATONIN 5 MG TABLET PO SCH (21:00)
[2022-07-13 00:23] VITALS: O2SAT 97
[2022-07-13] MEDS: METOPROLOL XL 50 MG TAB PO SCH (05:20)
[2022-07-13] MEDS: INSULIN -REGULAR HUMAN 50 UNIT/0.5 ML ML SQ SCH ×2 (07:30→11:30)
[2022-07-13 08:40] VITALS: TEMP 97.9
[2022-07-13] MEDS: AMLODIPINE 5 MG TAB PO SCH (09:06)
[2022-07-13] MEDS: THIAMINE HCL 100 MG TABLET PO SCH (09:06)
[2022-07-13 12:30] VITALS: BP 147/58
--- NOTE | 2022-07-13 14:24 | P.PN ---
Subjective Date of Service: 07/13/22 Chief Complaint: Syncope, VIANNEY Subjective: No new changes Physical Examination - Vital Signs Temperature: 97.9 F Blood Pressure: 147/58 Pulse: 64 Respirations: 16 Pulse Ox (%): 95 - Physical Exam General: Other (Appears as his stated age) HEENT: Atraumatic, Normocephalic Neck: Supple, JVD not distended Respiratory: Other (Symmetric chest expansion) Cardiovascular: No rubs, No murmurs Gastrointestinal: Soft and benign, No guarding Musculoskeletal: No clubbing Integumentary: No warmth Neurological: Normal speech, Normal tone Lymphatics: No axilla or inguinal lymphadenopathy Urinary: Other (No bladder distention) External genitalia: Deferred Rectal: Deferred Assessment And Plan - Plan # VIANNEY 2/2 rhabdomyolysis Improved [place] po fluid intake. Monitor renal panel. # Syncope Hx of CAD s/p CABG, s/p PPM, afib, chronic diastolic HF, NORRIS TTE in 2019 shows normal LVEF Per other services # Htn Continue current med regimen # DM2 Mngt per primary team
--- NOTE | 2022-07-13 14:31 | P.DS ---
Admission Date: 07/09/22 Discharge Date: 07/13/22 Disposition: ROUTINE DISCHARGE Discharge Condition: FAIR Reason for Admission: Syncope, VIANNEY - Problems (1) Syncope Current Visit: Yes Status: Acute (2) Cardiac pacemaker in situ Current Visit: Yes Status: Acute (3) Impaired mobility Current Visit: Yes Status: Acute (4) Chronic systolic heart failure Current Visit: Yes Status: Acute (5) Afib Current Visit: No Status: Chronic Qualifiers: Atrial fibrillation type: paroxysmal Qualified Code(s): I48.0 - Paroxysmal atrial fibrillation (6) Diabetes mellitus Onset Date: 12/03/16 Current Visit: No Status: Chronic (7) Obesity Onset Date: 11/11/17 Current Visit: No Status: Chronic Qualifiers: Obesity type: due to excess calories Obesity classification: adult class 3 (BMI >= 40) Serious obesity comorbidity presence: with serious comorbidity Body mass index: BMI 40.0-44.9 Qualified Code(s): E66.01 - Morbid (severe) o besity due to excess calories; Z68.41 - Body mass index [BMI] 40.0-44.9, adult (8) Obstructive sleep apnea Onset Date: 11/11/17 Current Visit: No Status: Chronic (9) Acute worsening of stage 3 chronic kidney disease Current Visit: Yes Status: Acute Brief History of Present Illness: 71-year-old male with history of CAD with previous CABG, hypertension, hyperlipidemia, CKD 3, chronic diastolic congestive heart failure, atrial fibrillation on chronic anticoagulation with Xarelto, COPD, diabetes mellitus type 2, NORRIS presented to the emergency department after sustaining a fall at home. Patient reports that he got up to walk to the bathroom and while standing from the toilet attempting to urinate "passed out". He does not recall the events immediately before his syncopal event although he denies any chest pain, lightheadedness or palpitations. The next thing he remembers was waking up when EMS got there, his reports that she had gone to bed at around 5 PM and when she woke up she found him in the bathroom by the toilet. It is unknown how long he was lying there. He does have a pacemaker in place. His labs in the ED were significant for moderate leukocytosis with a white blood cell count of 14.6 acute kidney injury creatinine 2.19 GFR 31 BUN 49 CPK elevated 753 high- sensitivity troponin mildly elevated 76.0 lactic acid 3.5 initially procalcitonin 1.37 urinalysis negative for signs of infection but did note 3+ blood 1+ protein. Chest x-ray was unremarkable. CT of the chest abdomen pelvis without contrast was negative for acute findings. Blood cultures were obtained in the ED, no source of infection identified. He did have a temperature of 99.3 upon arrival to ED, given his leukocytosis, elevated procalcitonin and mild elevation in temperature he was started on antibioticscefepime. Patient admitted for further management. Hospital Course: Patient admitted to the medical for Troponin slightly elevated but trended flat. No ACS Patient seen and evaluated by cardiology. EKG and telemetry shows paced rhythm. Patient syncope likely secondary to weakness and dehydration. Cardiology signed off Patient was generally weak and needing assistance with ambulation. Patient received physical therapy, his performance status improved during the hospital stay and now able to ambulate with a rolling walker with standby assist for about 300 feet. Dehydration contributed to patient's symptoms as his renal function suggested VIANNEY Nephrology saw him and assisted with management of VIANNEY Continued aspirin and Plavix for CAD during the hospital stay. Last echo In 2019 shows normal EF. Insulin sliding scale for glucose management. Held home dose glipizide during the hospital stay. Patient blood sugar readings were within normal range and apparently needed insulin coverage. He is on glipizide 10 mg at home and I am concerned of his risk of hypoglycemia since his blood sugar during this hospital stay has been within normal limits without the glipizide. Glipizide is held on discharge. Leukocytosis resolved. No clear evidence of pneumonia. UA negative for UTI so antibiotics was discontinued Family requested for acute rehab but insurance denied acute rehab. Patient and family opted for outpatient rehab. Patient general clinical condition has improved since hospitalization, vitals are stable and he is deemed stable for discharge. Vital Signs/Physical Exam: Temp Pulse Resp BP Pulse Ox 97.9 F 64 16 147/58 H 95 07/13/22 14:24 07/13/22 14:24 07/13/22 14:24 07/13/22 14:24 07/13/22 14:24 General: Alert, In no apparent distress, Oriented x3 HEENT: Mucous membr. moist/pink Neck: Supple, JVD not distended Respiratory: Clear to auscultation bilaterally, Normal air movement Cardiovascular: Regular rate/rhythm, Normal S1 S2, Edema (Trace bipedal edema) Gastrointestinal: Soft and benign, Non-distended Laboratory Data at Discharge: WBC 9.90 K/uL (4.3-10.9) 07/11/22 05:11 Hgb 11.0 g/dL (13.6-17.9) L 07/11/22 05:11 Hct 33.2 % (39.6-49.0) L 07/11/22 05:11 Plt Count 147 K/uL (152-406) L 07/11/22 05:11 PT 13.1 SECONDS (9.5-12.5) H 07/08/22 22:56 INR 1.19 07/08/22 22:56 APTT 30.9 SECONDS (24.3-36.9) 07/08/22 22:56 Sodium 137 mmol/L (136-145) 07/12/22 02:41 Potassium 3.8 mmol/L (3.5-5.1) 07/12/22 02:41 BUN 25 mg/dL (7-18) H 07/12/22 02:41 Creatinine 1.11 mg/dL (0.70-1.30) 07/12/22 02:41 Glucose 126 mg/dL (74-106) H 07/12/22 02:41 Phosphorus 2.0 mg/dL (2.5-4.9) L 07/11/22 05:11 Magnesium 2.2 mg/dL (1.6-2.4) 07/11/22 05:11 Total Bilirubin 0.3 mg/dL (0.2-1.0) 07/08/22 22:56 AST 21 U/L (15-37) 07/08/22 22:56 ALT 15 U/L (16-61) L 07/08/22 22:56 Alkaline Phosphatase 89 U/L (45-117) 07/08/22 22:56 Home Medications: Aripiprazole [Abilify] 30 mg PO DAILY 08/28/20 Atorvastatin Calcium [Lipitor] 40 mg PO BEDTIME 08/28/20 Rivaroxaban [Xarelto*] 20 mg PO DAILY 6PM 08/28/20 Spironolactone [Aldactone] 25 mg PO DAILY #30 tablet 09/23/20 Albuterol Neb [Proventil 0.083% Neb Soln] 2.5 mg NEB Q6HP PRN #120 amp 04/21/21 Folic Acid 1 mg PO DAILY 05/11/22 Furosemide [Lasix*] 60 mg PO TID 05/11/22 Magnesium Oxide 420 mg PO DAILY 05/11/22 Metoprolol Succinate [Toprol Xl*] 50 mg PO DAILY 05/11/22 Amlodipine [Norvasc*] 5 mg PO DAILY #30 tab 07/13/22 Gabapentin [Neurontin*] 1 cap PO TID #90 cap 07/13/22 Thiamine HCl [Vitamin B-1*] 100 mg PO DAILY #30 tab 07/13/22 New Medications: Gabapentin [Neurontin*] 1 cap PO TID #90 cap Amlodipine [Norvasc*] 5 mg PO DAILY #30 tab Thiamine HCl [Vitamin B-1*] 100 mg PO DAILY #30 tab Diet: ADA Activity: Fall precautions Time spent managing pt's care (in minutes): 40
== END 2022-07-13 15:49 | disposition home or self-care (01) | DRG 683 ==
LOC: ER 22:13 → ERHOLD 07-09 01:00 → 2ND 07-10 18:36
PROVIDERS: ADMIT Hospitalist; ATTEND Internal Medicine
DX: N17.9 Acute kidney failure, unspecified (principal); I13.0 Hypertensive heart and chronic kidney disease with heart failure and stage 1 through stage 4 chronic kidney disease, or unspecified chronic kidney disease; I50.32 Chronic diastolic (congestive) heart failure; R65.10 Systemic inflammatory response syndrome (SIRS) of non-infectious origin without acute organ dysfunction; Z68.41 Body mass index [BMI] 40.0-44.9, adult; M62.82 Rhabdomyolysis; I24.8 Other forms of acute ischemic heart disease; E66.01 Morbid (severe) obesity due to excess calories; E86.0 Dehydration; N18.30 Chronic kidney disease, stage 3 unspecified; E11.22 Type 2 diabetes mellitus with diabetic chronic kidney disease; E78.5 Hyperlipidemia, unspecified; J44.9 Chronic obstructive pulmonary disease, unspecified; G89.29 Other chronic pain; M54.9 Dorsalgia, unspecified; N28.1 Cyst of kidney, acquired; I48.0 Paroxysmal atrial fibrillation; E87.6 Hypokalemia; G47.33 Obstructive sleep apnea (adult) (pediatric); D72.829 Elevated white blood cell count, unspecified; I25.2 Old myocardial infarction; I25.10 Atherosclerotic heart disease of native coronary artery without angina pectoris; R77.8 Other specified abnormalities of plasma proteins; Z95.1 Presence of aortocoronary bypass graft; Z95.0 Presence of cardiac pacemaker; Z79.01 Long term (current) use of anticoagulants; Z79.84 Long term (current) use of oral hypoglycemic drugs; Z79.899 Other long term (current) drug therapy; Z20.822 Contact with and (suspected) exposure to COVID-19; W18.30XA Fall on same level, unspecified, initial encounter; Y93.01 Activity, walking, marching and hiking; Y92.012 Bathroom of single-family (private) house as the place of occurrence of the external cause
CPT/HCPCS: 0240U; 36415; 70450; 71045; 71250; 72125; 76770; 80048; 80053; 81001; 81003; 81015; 82550; 82947; 83605; 83735; 83880; 84100; 84145; 84439; 84443; 84484; 85025; 85610; 85730; 87040; 87086; 87088; 93005; 96374; 97110; 97116; 97161; 97165; 97530; 99285; J0360; J0692; J1815; J3480; J7030; J7040

== ENCOUNTER 2022-11-21 09:45 | Inpatient (IN) | payer OTHER ==
[2022-11-21] MEDS ORDERED: ALBUTEROL 2.5 MG/3 ML NEB SOL ONE (10:24)
[2022-11-21] MEDS ORDERED: VANCOMYCIN 1 GM/VIAL ONE (10:24)
[2022-11-21] MEDS ORDERED: CEFEPIME 2 GM VIAL ONE (10:24)
[2022-11-21] MEDS ORDERED: NA CHLORIDE 0.9% 250 ML ONE (10:25)
[2022-11-21] MEDS ORDERED: NA CHLORIDE 0.9% 100 ML ONE (10:25)
[2022-11-21] MEDS ORDERED: IPRATROPIUM BROM 0.5MG/2.5ML ONE (10:25)
--- OUTSIDE RECORDS SUMMARY | 2022-11-21 10:26 | XMS REPORT | Continuity of Care Document ---
:1950 Author Organization [facility] t Address [address] [facility] [place] [address] Care Team Providers Name Role [facility], [facility] Primary Care Physician Unavailable [id number] Attending Clinician Unavailable AMBER AZAR JAMES Attending Clinician Unavailable KEVIN HAMMER Attending Clinician Unavailable Doctor Unassigned, [place] Attending Clinician Unavailable Quinn French MD Attending Clinician Gonzalez Tejeda MD Attending Clinician Yuki ESCOTO, Leidy Maharaju Attending Clinician GONZALEZ TEJEDA Attending Clinician Unavailable Zachery ESCOTO, Micaela Attending Clinician Mau JOHN, Clifford A Attending Clinician Unavailable WERO KAPLAN Attending Clinician Unavailable Kavin Locke MD Attending Clinician Jordon Buckley MD Attending Clinician Wero Kaplan MD Attending Clinician Benedicto Ramos Attending Clinician Unavailable Physician, No Primary or Family Attending Clinician Unavailjake Almonte MD, Sendlamin K.H. Attending Clinician Natalee ESCOTO, José Antonio Kemp Attending Clinician Cinthya ESCOTO, Maycol Pereira Attending Clinician Josephine ESCOTO, Greer Alexander Attending Clinician Jed Hernandez MD, Erwin Sosa Attending Clinician [phone] Cara ESCOTO, Endy Grimes Attending Clinician Panfilo ESCOTO, Kvng Amaya Attending Clinician Tami ESCOTO, Ronald Brown Attending Clinician Kacy ESCOTO, Yen Mix Attending Clinician Britton ESCOTO, Meredith Ramos Attending Clinician MEREDITH JARQUIN V. Attending Clinician Unavailable Lucian Clements Attending Clinician Unavailable SHERI SENDLAMIN K.HKhadar Attending Clinician Unavailable Jaquelin ESCOTO, Kevin Attending Clinician 2, [facility] Attending Clinician Unavailable Daniel Monreal Attending Clinician Unavailable PARESH GUZMÁN Attending Clinician Unavailable ADITI LYMAN Attending Clinician Unavailable OLIVIA SÁNCHEZ Attending Clinician Unavailable [id number] Admitting Clinician Unavailable WILMAR WHITESIDE JOHN Admitting [...] Policy Number Effective Date Expiration Date S leydi [facility] [id number] [facility] [id number] 2009 00:00:00 MEDICARE PART A [id number] 2013 \\T\\ B 00:00:00 Problems Condition Condition Condition Status Onset Resolution Last Treating Co mments Source Name Details Category Date Date Treatment Clinician Date Arrhythmia Arrhythmia Disease Active [facility] 00 [place] Pulmonary Pulmonary Disease Active Uni vers hypertensi hypertensi 6-19 it y of on on 00:00: [place] [address] Medical Branch Acute on Acute on Disease Active Unive rs chronic chronic 6-19 ity of diastolic diastolic 00:00: [place] congestive congestive 00 Me dical heart heart Branch failure failure Coronary Coronary Disease Active Unive rs artery artery 6-19 ity of disease disease 00:00: [place] involving involving 00 [facility] [place] coronary coronary artery of artery of [place] heart heart without without angina angina pectoris pectoris Troponin I Troponin I Disease Active U nivers above above 6-19 ity of reference reference 00:00: [place] s range range 00 Medical Branch Other Other Disease Active Univers specified specified 6-19 ity of anemias anemias 00:00: [place] 00 [facility] Branch Obesity Obesity Disease Active Univers (BMI (BMI 6-19 ity of 30-39.9) 30-39.9) 00:00: [place] 00 Medical Branch Other Other Disease Active Univers heart heart 6-18 ity of failure failure 00:00: [address] Branch Moderate Moderate Disease [facility] protein-ca protein-ca 2-23 [facility] coco sepulveda 00:00: Medical malnutriti malnutriti 00 Ce nter on on MRSA MRSA Disease Active [facility] bacteremia bacteremia 2-12 [facility] kes 00:00: [facility] 00 [place] Pneumonia Pneumonia Disease Active [facility] of both of both 2-12 [facility] lungs due lungs due 00:00: Medi oralia to to 00 [place] methicilli methicilli n n resistant resistant Staphyloco Staphyloco ccus ccus aureus aureus (MRSA) (MRSA) Severe Severe Disease Active [facility] sepsis sepsis 2-12 [facility] 00:00: Medical 00 [place] Acute Acute Disease Active [facility] hypoxemic [...] chronic chronic 2-12 [facility] diastolic diastolic 00:00: [facility] CHF CHF 00 Center (congestiv (congestiv e [...] [facility] y failure y failure 00:00: [facility] 00 Center S/P CABG S/P CABG Disease [...] chronic chronic 7-17 [facility] diastolic diastolic 00:00: [facility] (congestiv (congestiv 00 Ce nter e) heart e) heart failure failure Other Other Disease Active [facility] shock shock 7-12 [facility] 00:00: Medical 00 Center Acute Acute Disease Active [facility] respirator respirator 11-14 [facility] y y 00:00: Medical insufficie insufficie 00 Ce nter ncy ncy CAD CAD Disease Active [facility] (coronary (coronary 11-11 [facility] s artery artery 00:00: Medical disease) disease) 00 Center CKD CKD Disease Active Overview: [facility] St (chronic (chronic 05-06 [place] [facility] kidney kidney 00:00: g of this Medical disease) disease) 00 note Center stage 2, stage 2, might be GFR 60-89 GFR 60-89 different ml/min ml/min from the original. Baseline Creatinin e ~ 1-1.3 Coronary Coronary Disease Active Overview: [facility] artery artery 05-06 [facility] disease disease 00:00: g of this Medic [...] 0-18 [place] ity of 00:00: g of [place] [address] note Medical might be Branch different from the original. Hepatitis CICD10 Diagnosis Term [employer] NORRIS on NORRIS on Disease Active Overview: [facility] CPAP CPAP [facility] g of this Medical note Center might be different from the original. claims complianc e with CPAP Current Current Disease Active [facility] St smoker smoker [facility] Allergies, Adverse Reactions, Alerts Allergy Allergy Status Severity Reaction(s) Onset Inactive Treating Comm ents Source Name Type Date Date Clinician No Known DA Active [facility]ergie 08-12 [place] 00:[facility]: [place] 00 [facility] No Known DA Active [facility] Allergie 08-12 [facility] s 00:00: [facility] Medical [place] NO KNOWN Allergy Active [facility] ALLERGIE S NO KNOWN Drug Active [facility] ALLERGIE Class ity of S [facility] Social History Social Habit Start Date Stop Date Quantity Comments Source History of tobacco Cigarette Smoker [facility] Alcohol intake 2021-12-08 2021-12-[address] [facility] 00:00:00 00:00:00 non-drinker of Medical Ce nter alcohol (finding) Exposure to 2021-10-11 2021-10-21 Not sure [facility] SARS-CoV-2 (event) 00:00:00 10:46:00 [facility] Cigarettes smoked 2021-02-23 2021-02-23 Univers ity of current (pack per 00:00:00 00:00:00 [facility] ed) - Reported Branch Tobacco use and 2021-02-23 2021-02-23 Smokeless Universit y of exposure 00:00:00 00:00:00 tobacco non-user [facility] dical [place] Cigarette 2017-11-11 2017-11-[address] [facility] [address] asael pack-years 00:00:00 00:00:00 [facility] Sex [birth year] At [birth year] Universit y of 00:00:00 00:00:00 [facility] Smoking Status Start Date Stop Date Source Current every day smoker 2017-11-11 00:00:00 [facility] Medications Ordered Filled Start Stop Current Ordering [...] 8- by mouth [facility] tablet 18:54: daily. [address] ARIPiprazol Yes 30mg QD Take [address] e (ABILIFY) 8- by mouth Luke s 30 MG 18:54: daily. Medical [address] aspirin 81 Yes 81mg QD Take [address] MG EC 8-09 by mouth [facility] tablet 18:54: daily. [address] ARIPiprazol Yes 30mg QD Take [address] e (ABILIFY) 12-12 by mouth Luke s 30 MG 18:54: daily. Medical tablet 12 [place] gabapentin 2021- No 400mg Q.[id number] Take [address] (NEURONTIN) 12-12 [id number] mg by [facility] 400 MG 13:52: 00:00 3D mouth 3 Medical capsule 48 :00 (three) Center times daily. glipiZIDE 2021- No 10mg QD Take [address] (GLUCOTROL) 12-12 by mouth [place] es 10 MG 13:52: 00:00 daily. Medical tablet 48 :00 [place] rivaroxaban 2021- No 20mg Take [address] (XARELTO) 12-12 by mouth [facility] 20 mg 13:52: 00:00 daily with Medic al tablet 48 :00 dinner. [place] metFORMIN 2021- No 1000mg Take 1,[address] (GLUCOPHAGE 12-12 mg by [facility] ) 1000 MG 13:52: 00:00 mouth 2 Medi oralia tablet 48 :00 (two) Center times daily with breakfast and dinner. losartan 2021- No 100mg QD Take [address] (COZAAR) 12-12 mg by [facility] 100 MG 13:52: 00:00 mouth Medical tablet 48 :00 daily. [place] spironolact 2021- No 25mg QD Take [address] one 12-12 by mouth [facility] (ALDACTONE) 13:52: 00:00 daily. Med ical 25 MG 48 :00 Center tablet amiodarone 2021- No 100mg QD Take [address] (PACERONE) 12-12 mg by [facility] 100 MG 13:52: 00:00 mouth Medical tablet 48 :00 daily. [place] amLODIPine 2021- No 10mg QD Take [address] (NORVASC) 12-12 by mouth [facility] 10 MG 13:52: 00:00 daily. Medical tablet 48 :00 [place] gabapentin 2021- No 400mg Q.[id number] Take [address] (NEURONTIN) 12-12 [id number] mg by [facility] 400 MG 13:52: 00:00 3D mouth 3 Medical capsule 48 :00 (three) Center times daily. glipiZIDE 2021- No 10mg QD Take [address] (GLUCOTROL) 12-12 by mouth [place] es 10 MG 13:52: 00:00 daily. Medical tablet 48 :00 Center rivaroxaban 2021- No 20mg Take [address] (XARELTO) 12-12 by mouth [facility] 20 mg 13:52: 00:00 daily with Medic al tablet 48 :00 dinner. [place] metFORMIN 2021- No 1000mg Take 1,[address] (GLUCOPHAGE 12-12 mg by [facility] ) 1000 MG 13:52: 00:00 mouth 2 Medi oralia tablet 48 :00 (two) Center times daily with breakfast and dinner. losartan 2021- No 100mg QD Take [address] (COZAAR) 12-12 mg by [facility] 100 MG 13:52: 00:00 mouth Medical tablet 48 :00 daily. [place] spironolact 2021- No 25mg QD Take [address] one 12-12 by mouth [facility] (ALDACTONE) 13:52: 00:00 daily. Med ical 25 MG 48 :00 Center tablet amiodarone 2021- No 100mg QD Take [address] (PACERONE) 12-12 mg by [facility] 100 MG 13:52: 00:00 mouth Medical tablet 48 :00 daily. [place] amLODIPine 2021- No 10mg QD Take [address] (NORVASC) 12-12 by mouth [facility] 10 MG 13:52: 00:00 daily. Medical tablet 48 :00 [place] folic acid Yes 1mg QD Take 1 [...] 25mg QD Take [address] one 8- tablet (25 [facility] (ALDACTONE) 00:00: mg total) M edical 25 MG 00 by mouth Center tablet daily. amLODIPine 2022-0 Yes 10mg QD Take 1 [facility] (NORVASC) 8-09 tablet (10 Luke s 10 MG 00:00: mg total) Medical tablet 00 by mouth Center daily. famotidine 2022-0 Yes 20mg Take 1 [facility] (PEPCID) 20 - tablet (20 [facility] MG tablet 00:00: mg total) Med ical 00 by mouth Center every 12 (twelve) hours. ipratropium 2022-0 Yes 3mL Q.[id number] Take [address] -albuteroL 12-12 [id number] by Holly es (DUO-NEB) 00:00: 3D nebulizati Me dical 0.5 mg-3 00 on 3 Center mg(2.5 mg (three) base)/3 mL times nebulizer daily. solution losartan 2022-0 Yes 100mg QD Take [address] (COZAAR) - tablet [facility] 100 MG 00:00: (100 mg Medical tablet 00 total) by Center mouth daily. metoprolol 2022-0 Yes 25mg Q.5D Take 1 [facility] [...] Yes .25mg Take [address] (XANAX) 12-12 tablet [facility] 0.25 MG 00:00: (0.25 mg [...] per tablet Hold if having diarrhea. thiamine 2021-0 Yes 100mg QD Take [address] [...] 12 (twelve) hours. ipratropium 2021-0 Yes 3mL Q.[id number] Take [address] -albuteroL 12-12 [id number] by [place] [facility] (DUO-NEB) 00:00: 3D nebulizati Me dical 0.5 mg-3 00 on 3 Center mg(2.5 mg (three) base)/3 mL times nebulizer daily. solution losartan 202-0 Yes 100mg QD Take [address] (COZAAR) 12-12 tablet [facility] 100 MG 00:00: (100 mg Medical tablet 00 total) by Center mouth daily. metoprolol 0 Yes 25mg Q.5D Take 1 [facility] tartrate - tablet (25 [facility] (LOPRESSOR) 00:00: mg total) M edical 25 MG 00 by mouth 2 Center tablet (two) times daily. rivaroxaban 0 Yes 20mg Take [address] (XARELTO) 12-12 tablet (20 Luke s 20 mg 00:00: mg total) Medical tablet 00 by mouth Center daily with dinner. ALPRAZolam 0 Yes .25mg Take [address] (XANAX) 12-12 tablet [facility] 0.25 MG 00:00: (0.25 mg [...] by mouth ity of tablet 13:40: daily. [address] rivaroxaban 0 Yes Take by Uni vers 20 mg 6-24 mouth ity of tablet 13:40: daily. [address] aspirin 81 2021-0 Yes 81mg Take 81 mg U nivers mg EC 6-24 by mouth ity of tablet 13:40: daily. [address] gabapentin 2021-0 Yes 100mg Take 100 Un emilia 100 mg 6-24 mg by ity of capsule 13:40: mouth 3 [place] [address] (three) Medical times Branch daily. KCL 10 mEq 2021-0 Yes 40meq Take 40 Uni vers tablet 6-24 mEq by ity of 13:40: mouth [place] 22 daily. [facility] Branch glipiZIDE Yes 10mg Take 10 mg Un emilia 10 mg 6-24 by mouth ity of tablet 13:40: daily. [address] rivaroxaban Yes Take by Uni vers 20 mg 6-24 mouth ity of tablet 13:40: daily. [address] aspirin 81 0 Yes 81mg Take 81 mg U nivers mg EC 6-24 by mouth ity of tablet 13:40: daily. [address] gabapentin Yes 100mg Take 100 Un emilia 100 mg 6-24 mg by ity of capsule 13:40: mouth 3 [place] [address] (three) Medical times [place] daily. KCL 10 mEq Yes 40meq Take 40 Uni vers tablet 6-24 mEq by ity of 13:40: mouth [place] 22 daily. [facility] Branch glipiZIDE Yes 10mg Take 10 mg Un emilia 10 mg 6-24 by mouth ity of tablet 13:40: daily. [address] rivaroxaban Yes Take by Uni vers 20 mg 6-24 mouth ity of tablet 13:40: daily. [address] aspirin 81 0 Yes 81mg Take 81 mg U nivers mg EC 6-24 by mouth ity of tablet 13:40: daily. [address] gabapentin Yes 100mg Take 100 Un emilia 100 mg 6-24 mg by ity of capsule 13:40: mouth 3 [place] [address] (three) Medical times [place] daily. KCL 10 mEq Yes 40meq Take 40 Uni vers tablet 6-24 mEq by ity of 13:40: mouth [place] 22 daily. Medical Branch metoprolol 2021- No [id number] 50mg Take 1 Univers succinate 6-24 07-25 tablet by ity of XL 50 mg 24 00:00: 04:59 mouth [place] hr tablet 00 :00 daily for Medic al 30 days. Branch furosemide 2021- No [id number] 40mg Take 1 Univers 40 mg 6-24 07-25 tablet by ity of tablet 00:00: 04:59 mouth [place] 00 :00 daily for Medical 30 days. Branch metoprolol 2021- No [id number] 50mg Take 1 Univers succinate 10-27-25 tablet by ity of XL 50 mg 24 00:00: 04:59 mouth [place] hr tablet 00 :00 daily for Medic al 30 days. Branch furosemide 2021- No [id number] 40mg Take 1 Univers 40 mg 10-27-25 tablet by ity of tablet 00:00: 04:59 mouth [place] 00 :00 daily for Medical 30 days. Branch gabapentin Yes 100mg 100 mg, Uni vers (NEURONTIN) - Oral, TID, it y of capsule 100 17:30: First dose [place] mg 00 on [facility] Branch Medical 10/26/21 at Branch 1230, Until Discontinu [...] DAILY, [place] 00 First dose Medical on [facility] 10/26/21 at 0900, Until Discontinu ed, Routine ferrous 2021- No [id number] 325mg Take 1 Un emilia sulfate 325 10-26-24 tablet by it y of mg (65 mg 00:00: 04:59 mouth 2 [place] iron) 00 :00 (two) Medical tablet times [place] daily for 30 days. atorvastati 2021- No [id number] 40mg Take 1 Univers n 40 mg 10-26-24 tablet by ity of tablet 00:00: 04:59 mouth at [place] 00 :00 bedtime Medical for 30 Branch days. ferrous 2021- No [id number] 325mg Take 1 Un emilia sulfate 325 10-26-24 tablet by it y of mg (65 mg 00:00: 04:59 mouth 2 [place] iron) 00 :00 (two) Medical tablet times [place] daily for 30 days. atorvastati 202- No [id number] 40mg Take 1 Univers n 40 mg 10-26 07-24 tablet by ity of tablet 00:00: 04:59 mouth at [place] 00 :00 bedtime Medical for 30 Branch days. traMADoL 0 Yes 50mg 50 mg, Univers (ULTRAM) 10-25 Oral, ity of tablet 50 18:13: Q6HPRN, [place] mg 54 Starting Medical on Sat10/25/21 at 1313, Until Discontinu ed, Routine, Pain (scale 7-10) atorvastati Yes 40mg 40 mg, Univ ers n (LIPITOR) 10-25 Oral, QHS, it y of tablet 40 02:00: First dose [place] mg 00 on Sat [facility] 10/24/21 at Branch 2100, Until Discontinu ed, Routine metoprolol Yes 50mg 50 mg, Unive rs succinate 10-24 Oral, ity of XL (TOPROL 13:45: DAILY, [place] XL) tablet 00 First dose Med ical 50 mg (after [place] last modificati on) on 10/24/21 at 0845, Until Discontinu ed, Routine ferrous 0 Yes 325mg 325 mg, Univer s sulfate 10-24 Oral, BID, ity of tablet 325 01:00: First dose [place] mg 00 on [facility] 10/23/21 at Branch 2000, Until Discontinu ed, Routine sennosides 0 Yes 8.6mg 8.6 mg, Uni vers (SENOKOT) 6- Oral, BID, ity of tablet 8.6 13:45: First dose [place] mg 00 on [facility] 10/23/21 at Branch 0845, Until Discontinu ed, Routine polyethylen 0 Yes 17g 17 g, Unive rs e glycol 6-20 Oral, BID, ity o f 3350 powder 13:45: First dose [place] 17 g 00 on [facility] 10/23/21 at Branch 0845, Until Discontinu ed, Routine KCL 2021-0 Yes 40meq 40 mEq, Univers (KLOR-CON 6-19 Oral, BID, ity of M20) tablet 22:45: First dose [place] 40 mEq 00 on [facility] 10/22/21 at Branch 1745, Until Discontinu ed, Routine iron 2021- No 25mg 25 mg, IV Univers dextran 10-22 Piggyback, ity o f (INFED) 25 21:15: 21:27 ONCE, 1 Jame[place] as mg in NaCl 00 :00 dose, On Medic al 0.9% (NS) [facility] 100 mL IV 10/22/21 at piggyback [...] [place] mg 00 First dose Medical on [facility] 10/22/21 at 0900, Until Discontinu ed, Routine glipiZIDE Yes 10mg 10 mg, Univer s (GLUCOTROL) 10-22 Oral, ity of tablet 10 14:00: DAILY, [place] mg 00 First dose Medical on [facility] 10/22/21 at 0900, Until Discontinu ed, Routine metoprolol No 25mg 25 mg, Univ ers succinate 10-22 Oral, ity of XL (TOPROL 14:00: 13:35 DAILY, [place] XL) tablet 00 :11 First dose Med ical 25 mg on [facility] 10/22/21 at 0900, Until Discontinu ed, Routine sulfur 2021- No [id number] 5mL 5 mL, Univ ers hexafluorid 10-22 Intravenou i ty of e microsphr 13:45: 13:32 s, ONCE, 1 [place] (LUMASON) 00 :00 dose, On Medica l injection 5 [place] Branch mL 10/22/21 at 0845, Routine
crew team member approving Restricted medication : SHERRY, QIANGJUN Sliding Yes Subcutaneo Univ ers Scale 6-19 us, AC+HS, ity of Insulin-Reg 02:00: First dose [place] ular + Fsbg 00 on [facility] Medica l Testing 10/21/21 at Branch 2100, Until Discontinu ed, Routine furosemide Yes 40mg 40 mg, IV Un emilia (LASIX) 10-22 Push, ity of injection 01:00: Q12H, [place] 40 mg 00 First dose Medical (after Branch last reorder) on [facility] 10/21/21 at 2000, Until Discontinu ed, LUCHO glucagon Yes 1mg 1 mg, Univers (GLUCAGEN 10-21 Intramuscu ity of DIAGNOSTIC 23:10: lar, PRN, [place] KIT) 49 Starting Medical injection 1 on [facility] 10/21/21 at 1810, Until Discontinu ed, LUCHO, Blood Glucose < or = 70 mg/dL and patient is unable to swallow or has mental changes. acetaminoph Yes 650mg 650 mg, Un emilia en 10-21 Oral, ity of (TYLENOL) 20:19: Q6HPRN, [place] tablet 650 03 Starting Medic al mg on [facility] Branch 10/21/21 at 1519, Until Discontinu ed, Routine, Pain (scale 1-3) furosemide 2021- No 40mg 40 mg, IV U nivers (LASIX) 10-21 Push, ity of injection 19:30: 19:16 ONCE, 1 [place] 40 mg 00 :00 dose, On Medical [facility] 10/21/21 at 1430, [place] gabapentin 0 2021- No 100mg Take 100 U nivers 400 mg 10-21 mg by ity of capsule 14:53: 00:00 mouth 3 [place] 43 :00 (three) Medical times [place] daily. ARIPiprazol 2021- No 30mg Take 30 mg Univers e 30 mg 10-21 by mouth ity of tablet 14:53: 00:00 daily. [place] 36 :00 [facility] atorvastati 2021- No 40mg Take 40 mg Univers n 40 mg 10-21 by mouth ity of tablet 14:52: 00:00 at [place] 44 :00 bedtime. Medical Branch carvedilol 2021- No 25mg Take 25 mg Univers 25 mg 6-18 -18 by mouth 2 ity of tablet 14:52: 00:00 (two) [place] 35 :00 times Medical daily with Branch meals. losartan 2021- No 100mg Take 100 Uni vers 100 mg 6-18 06-18 mg by ity of tablet 14:52: 00:00 mouth [place] 26 :00 daily. Medical Branch metFORMIN 2021- No 1000mg Take 1,000 Univers 1,000 mg 6-18 06-18 mg by ity of tablet 14:52: 00:00 mouth 2 [place] 17 :00 (two) Medical times Branch daily with meals. XANAX 1 MG 2021- No 3 tabs Univ ers ORAL TAB 6-18 06-18 daily ity of 14:51: 00:00 [place] 59 :00 Medical Branch furosemide 2021- No 40mg Take 40 mg Univers (LASIX) 80 18 -18 by mouth ity of mg tablet 14:49: 00:00 daily. 40 [place] 22 :00 mg in AM Medical and 20 mg Branch in PM. Indication s: pt stopped taking d/t incontinen ce AMIODARONE Yes [id number] TAKE 1 Univers 100 mg 4-12 TABLET BY ity of tablet 00:00: MOUTH [place] 00 EVERY DAY Medical Branch AMIODARONE 2021- No [id number] TAKE 1 Univers 100 mg 4-12 06-18 TABLET BY ity of tablet 00:00: 00:00 MOUTH [place] 00 :00 EVERY DAY Medical Branch folic acid 2021- No 1mg QD Take [address] (FOLVITE) 1 3-16 08-09 tablet (1 [place] k[facility] MG tablet [...] 1 [facility] 100 MG 3-16 - tablet [facility] tablet 00:00: 00:00 (100 mg Medical 00 :00 total) by Center mouth daily. folic acid 2021- No 1mg QD Take [address] (FOLVITE) 1 07-19- tablet (1 [place] kes MG tablet 00:00: 00:00 mg total) Me dical 00 :00 by mouth Center daily. furosemide 2021- No 40mg QD Inject [address] (LASIX) 10 07-19- mLs (40 mg [place] kes mg/mL 00:00: [...] [address] [facility] e glycol 3-16 -19 by mouth [facility] (GLYCOLAX) 00:00: 23:59 daily for M edical 17 gram 00 :00 3 days. Center packet polyethylen 2021-2021- No 17g QD Take 17 g CHI [...] 13:11: 00:00 daily. Medic al 01 :00 [place] esomeprazol 2021-2021- No 20mg QD Take [address] [facility] (NEXIUM) 3-15 03-15 by mouth Luke s 20 MG 13:11: 00:00 daily. Medical capsule 01 :00 [place] gabapentin 2021-2021- No 1200mg Q.[id number] Take 1,[address] (NEURONTIN) 3-15 03-15 [id number] mg by [facility] 600 MG 13:11: 00:00 [...] 13:11: 00:00 daily. Med ical 01 :00 [place] carvedilol 2021-2021- No 12.5mg Take 12.[address] (COREG) 25 3-15 03-15 mg by [facility] MG tablet 13:11: 00:00 mouth 2 Medi oralia 01 :00 (two) Center times daily with breakfast and dinner . clopidogrel 2022021- No 75mg QD Take [address] [facility] (PLAVIX) 75 3-15 03-15 by mouth [place] mg tablet 13:11: 00:00 daily. Medic al 01 :00 [place] esomeprazol No 20mg QD Take [address] [facility] (NEXIUM) 3-15 03-15 by mouth Luke s 20 MG 13:11: 00:00 daily. Medical capsule 01 :00 [place] gabapentin 2021- No 1200mg Q.[id number] Take 1,[address] (NEURONTIN) 3-15 03-15 [id number] mg by [facility] 600 MG 13:11: 00:00 3D mouth 3 Medical tablet 01 :00 (three) Center times daily. glipiZIDE 2021- No 10mg Q.5D Take [address] (GLUCOTROL 3-15 03-15 by mouth 2 [place] XL) 10 MG 13:11: 00:00 (two) Medica l 24 hr 01 :00 times Center tablet daily. metFORMIN No 1000mg Q.5D Take 1,[address] (GLUMETZA) 3-15 03-15 mg by [facility] 1000 MG 13:11: 00:00 mouth 2 Medica l (MOD) 24 hr 01 :00 (two) Center tablet times daily. traZODone 2021- No 100mg Take [address] (DESYREL) 3-15 03-15 mg by [facility] 100 MG 13:11: 00:00 mouth Medical tablet 01 :00 every Center night as needed for Sleep. metOLazone No 5mg QD Take [address] (ZAROXOLYN) 3-15 03-15 by mouth [place] es 5 MG tablet 13:11: 00:00 daily. Med ical 01 :00 [place] acetaminoph Yes 650mg Take 20.[address] [facility] [...] 00 :00 by mouth Center nightly. famotidine No 20mg Take [address] [facility] (PEPCID) 20 07-18 tablet (20 L ukes MG tablet 00:00: 00:00 mg total) Me dical 00 :00 by mouth Center every 12 (twelve) hours. insulin No Use as [facility] regular 07-18 directed. [facility] (HumuLIN 00:00: 00:00 Medical R,NovoLIN 00 :00 Center R) 100 unit/mL injection ipratropium 2021- No 3mL Take [address] -albuteroL 07-18 by [facility] (DUO-NEB) 00:00: 00:00 nebulizati M edical 0.5 [...] QD Take [address] ate 07-18 tablets by Sarah (SENOKOT S) 00:00: 00:00 mouth Medi oralia 8.6-50 mg 00 :00 nightly. Center per tablet zinc 2021- No 71g Q.5D Apply [address] oxide-ceferino 07-18 topically Mykel kes latum 00:00: 00:00 2 (two) Medical (CRITIC-AID 00 :00 times Center ) 20-51 % daily. Pste topical paste insulin 2021- No 35U Q.5D Inject [address] glargine 07-18 Units Sarah (LANTUS, 00:00: 00:00 subcutaneo Me [...] [facility] ate 07-18- tablets by [facility] (SENOKOT S) 00:00: 00:00 mouth Medi oralia 8.6-50 mg 00 :00 nightly. Center per tablet zinc 2021- No 71g Q.5D Apply [address] [facility] oxide-ceferino 07-18- topically Mykel kes latum 00:00: 00:00 2 (two) Medical (CRITIC-AID 00 :00 times Center ) 20-51 % daily. Pste topical paste insulin 2021- No 35U Q.5D Inject [address] [facility] glargine 15 - Units [facility] (LANTUS, 00:00: 00:00 subcutaneo [...] mouth 2 ity of tablet 13:23: (two) [place] 23 times Medical daily with Branch meals. carvedilol 2020-05 Yes 25mg Take 25 mg U nivers 25 mg 0-21 by mouth 2 ity of tablet 13:23: (two) [place] 23 times Medical daily with Branch meals. carvedilol 2020-05 Yes 25mg Take 25 mg U nivers 25 mg 0-21 by mouth 2 ity of tablet 13:23: (two) [place] 23 times Medical daily with Branch meals. carvedilol 2020-05 Yes 25mg Take 25 mg U nivers 25 mg 0-21 by mouth 2 ity of tablet 13:23: (two) [place] 23 times Medical daily with Branch meals. carvedilol 2020-05 Yes 25mg Take 25 mg U nivers 25 mg 0-21 by mouth 2 ity of tablet 13:23: (two) [place] 23 times Medical daily with Branch meals. carvedilol 2020-05 Yes 25mg Take 25 mg U nivers 25 mg 0-21 by mouth 2 ity of tablet 13:23: (two) [place] 23 times Medical daily with Branch meals. carvedilol 2020-05 Yes 25mg Take 25 mg U nivers 25 mg 0-21 by mouth 2 ity of tablet 13:23: (two) [place] 23 times Medical daily with Branch meals. rivaroxaban 2020-05 Yes Take by Uni vers 20 mg 0-21 mouth ity of tablet 13:23: daily. [address] rivaroxaban 2020-05 Yes Take by Uni vers 20 mg 0-21 mouth ity of tablet 13:23: daily. [address] rivaroxaban 2020-05 Yes Take by Uni vers 20 mg 0-21 mouth ity of tablet 13:23: daily. [address] rivaroxaban 2020-05 Yes Take by Uni vers 20 mg 0-21 mouth ity of tablet 13:23: daily. [address] rivaroxaban 2020-05 Yes Take by Uni vers 20 mg 0-21 mouth ity of tablet 13:23: daily. [address] rivaroxaban 2020-05 Yes Take by Uni vers 20 mg 0-21 mouth ity of tablet 13:23: daily. [address] rivaroxaban 2020-05 Yes Take by Uni vers 20 mg 0-21 mouth ity of tablet 13:23: daily. [address] losartan 2020-05 Yes 100mg Take 100 Univ ers 100 mg 0-21 mg by ity of tablet 13:23: mouth [place] 14 daily. [facility] losartan 2020-05 Yes 100mg Take 100 Univ ers 100 mg 0-21 mg by ity of tablet 13:23: mouth [place] 14 daily. [facility] losartan 2020-05 Yes 100mg Take 100 Univ ers 100 mg 0-21 mg by ity of tablet 13:23: mouth [place] 14 daily. [facility] losartan 2020-05 Yes 100mg Take 100 Univ [...] 13:23: at [place] 08 bedtime. Medical Branch aspirin 81 2020-05 Yes 81mg Take 81 mg U nivers mg EC 0-21 by mouth ity of tablet 13:23: daily. [place] [address] Medical Branch aspirin 81 2020-05 Yes 81mg Take 81 mg U nivers mg EC 0-21 by mouth ity of tablet 13:23: daily. [place] [address] Medical Branch aspirin 81 2020-05 Yes 81mg [...] mouth [place] 00 :00 daily. Medical Branch gabapentin Yes 1200mg Take 1,200 [facility] 400 mg 9-28 mg by ity of capsule 11:28: mouth 3 [place] 41 (three) Medical times Branch daily. metFORMIN Yes 1000mg Take 1,000 Univers 1,000 mg 9-28 mg by ity of tablet 11:28: mouth 2 [place] 41 (two) Medical times Branch daily with meals. ARIPiprazol 2021-0 Yes 30mg Take 30 mg Univers e 30 mg 9-28 by mouth ity of tablet 11:28: daily. [address] glipiZIDE 2020-0 Yes 10mg Take 10 mg Un emilia 10 mg 9-28 by mouth ity of tablet 11:28: daily. [address] gabapentin 202-0 Yes 1200mg Take 1,200 Univers 400 mg 9-28 mg by ity of capsule 11:28: mouth 3 [place] [address] (three) Medical times Branch daily. metFORMIN 2021-0 Yes 1000mg Take 1,000 Univers 1,000 mg 9-28 mg by ity of tablet 11:28: mouth 2 [place] [address] (two) Medical times [place] daily with meals. ARIPiprazol 1-0 Yes 30mg Take 30 mg Univers e 30 mg 9-28 by mouth ity of tablet 11:28: daily. [address] glipiZIDE 2020-0 Yes 10mg Take 10 mg Un emilia 10 mg 9-28 by mouth ity of tablet 11:28: daily. [address] gabapentin 2020-0 Yes 1200mg Take 1,200 Univers 400 mg 9-28 mg by ity of capsule 11:28: mouth 3 [place] [address] (three) Medical times [place] daily. metFORMIN 2020-0 Yes 1000mg Take 1,000 Univers 1,000 mg 9-28 mg by ity of tablet 11:28: mouth 2 [place] [address] (two) Medical times [place] daily with meals. ARIPiprazol 1-0 Yes 30mg Take 30 mg Univers e 30 mg 9-28 by mouth ity of tablet 11:28: daily. [address] glipiZIDE 2020-0 Yes 10mg Take 10 mg Un emilia 10 mg 9-28 by mouth ity of tablet 11:28: daily. [address] gabapentin 2020-0 Yes 1200mg Take 1,200 Univers 400 mg 9-28 mg by ity of capsule 11:28: mouth 3 [place] [address] (three) Medical times [place] daily. metFORMIN 2021-0 Yes 1000mg Take 1,000 Univers 1,000 mg 9-28 mg by ity of tablet 11:28: mouth 2 [place] [address] (two) Medical times [place] daily with meals. ARIPiprazol 2021-0 Yes 30mg Take 30 mg Univers e 30 mg 9-28 by mouth ity of tablet 11:28: daily. [address] glipiZIDE 2020-0 Yes 10mg Take 10 mg Un emilia 10 mg 9-28 by mouth ity of tablet 11:28: daily. [address] gabapentin 2021-0 Yes 1200mg Take 1,200 Univers 400 mg 9-28 mg by ity of capsule 11:28: mouth 3 [place] [address] (three) Medical times [place] daily. metFORMIN 2021-0 Yes 1000mg Take 1,000 Univers 1,000 mg 9-28 mg by ity of tablet 11:28: mouth 2 [place] [address] (two) Medical times [place] daily with meals. ARIPiprazol 2021-0 Yes 30mg Take 30 mg Univers e 30 mg 9-28 by mouth ity of tablet 11:28: daily. [address] glipiZIDE 2020-0 Yes 10mg Take 10 mg Un emilia 10 mg 9-28 by mouth ity of tablet 11:28: daily. [address] gabapentin 2020-0 Yes 1200mg Take 1,200 Univers 400 mg 9-28 mg by ity of capsule 11:28: mouth 3 [place] [address] (three) Medical times [place] daily. metFORMIN 1-0 Yes 1000mg Take 1,000 Univers 1,000 mg 9-28 mg by ity of tablet 11:28: mouth 2 [place] [address] (two) Medical times [place] daily with meals. ARIPiprazol 1-0 Yes 30mg Take 30 mg Univers e 30 mg 9-28 by mouth ity of tablet 11:28: daily. [address] glipiZIDE 2020-0 Yes 10mg Take 10 mg Un emilia 10 mg 9-28 by mouth ity of tablet 11:28: daily. [address] gabapentin 2020-0 Yes 1200mg Take 1,200 Univers 400 mg 9-28 mg by ity of capsule 11:28: mouth 3 [place] [address] (three) Medical times [place] daily. metFORMIN 2021-0 Yes 1000mg Take 1,000 Univers 1,000 mg 9-28 mg by ity of tablet 11:28: mouth 2 [place] [address] (two) Medical times [place] daily with meals. ARIPiprazol 2021-0 Yes 30mg Take 30 mg Univers e 30 mg 9-28 by mouth ity of tablet 11:28: daily. [address] glipiZIDE 2021-0 Yes 10mg Take 10 mg Un emilia 10 mg 9-28 by mouth ity of tablet 11:28: daily. [place] 41 Medical Branch XANAX 1 MG 2020-0 Yes 3 tabs Unive rs ORAL TAB 8-12 daily ity of 09:33: [place] 19 Medical Branch XANAX 1 MG 2020-0 Yes 3 tabs Unive rs ORAL TAB 8-12 daily ity of 09:33: [place] 19 Medical Branch XANAX 1 MG 2020-0 Yes 3 tabs Unive rs ORAL TAB 8-12 daily ity of 09:33: [place] 19 Medical Branch XANAX 1 MG 2020-0 Yes 3 tabs Unive rs ORAL TAB 8-12 daily ity of 09:33: [place] 19 Medical Branch XANAX 1 MG 2020-0 Yes 3 tabs Unive rs ORAL TAB 8-12 daily ity of 09:33: [place] 19 Medical Branch XANAX 1 MG 2020-0 Yes 3 tabs Unive rs ORAL TAB 8-12 daily ity of 09:33: [place] 19 Medical Branch XANAX 1 MG 2020-0 Yes 3 tabs Unive rs ORAL TAB 8-12 daily ity of 09:33: [address] Branch carvedilol Yes 12.5mg Take 12.[address] [facility] (COREG) 25 9-20 mg by [facility] MG tablet 10:15: mouth 2 Medic al 53 (two) Center times daily with breakfast and dinner . clopidogrel Yes 75mg QD Take [address] [facility] [facility] (PLAVIX) 75 9-20 by mouth Luke s mg tablet 10:15: daily. Medica l [address] [place] [address] aspirin 81 Yes 81mg QD Take [address] MG EC 9-20 by mouth [facility] tablet 10:15: daily. Medical Center esomeprazol Yes 20mg QD Take [address] [facility] e (NEXIUM) 9-20 by mouth [facility] 20 MG 10:15: daily. Medical capsule 53 Center gabapentin Yes 1200mg [id number] Take 1,[address] (NEURONTIN) 9-20 [id number] mg by L ukes 600 MG 10:15: [...] capsule 53 Center gabapentin 2018-0 Yes 1200mg [id number] Take 1,[address] (NEURONTIN) 9-20 [id number] mg by L ukes 600 MG 10:15: [...] 53 (two) Center tablet times daily. traZODone 2018- Yes 100mg Take [address] [facility] (DESYREL) [...] Immunizations Ordered Filled Immunization Date Status Comments [facility] Immunization Name Name SARS-COV-2 COVID-19 2020-07-23 Completed Unive rsity of PFIZER VACCINE 00:00:00 [facility] Branch SARS-COV-2 COVID-19 2020-07-23 Completed Unive rsity of PFIZER VACCINE 00:00:00 [facility] Branch SARS-COV-2 COVID-19 2020-07-23 Completed Unive rsity of PFIZER VACCINE 00:00:00 [facility] Branch SARS-COV-2 COVID-19 2020-07-23 Completed Unive rsity of PFIZER VACCINE 00:00:00 [facility] Branch SARS-COV-2 COVID-19 2020-07-23 Completed Unive rsity of PFIZER VACCINE 00:00:00 [facility] Branch SARS-COV-2 COVID-19 2020-07-23 Completed Unive rsity of PFIZER VACCINE 00:00:00 [facility] Branch SARS-COV-2 COVID-19 2020-07-23 Completed Unive rsity of PFIZER VACCINE 00:00:00 [facility] Branch SARS-COV-2 COVID-19 2020-07-23 Completed Unive rsity of PFIZER VACCINE 00:00:00 [facility] Branch SARS-COV-2 COVID-19 2020-07-23 Completed Unive rsity of PFIZER VACCINE 00:00:00 [facility] SARS-COV-2 COVID-19 2020-07-23 Completed Unive rsity of PFIZER VACCINE 00:00:00 [facility] Branch SARS-COV-2 COVID-19 2020-07-02 Completed Unive rsity of PFIZER VACCINE 00:00:00 [facility] Branch SARS-COV-2 COVID-19 2020-07-02 Completed Unive rsity of PFIZER VACCINE 00:00:00 [facility] SARS-COV-2 COVID-19 2020-07-02 Completed Unive rsity of PFIZER VACCINE 00:00:00 [facility] Branch SARS-COV-2 COVID-19 2020-07-02 Completed Unive rsity of PFIZER VACCINE 00:00:00 [facility] Branch SARS-COV-2 COVID-19 2020-07-02 Completed Unive rsity of PFIZER VACCINE 00:00:00 [facility] SARS-COV-2 COVID-19 2020-07-02 Completed Unive rsity of PFIZER VACCINE 00:00:00 [facility] Branch SARS-COV-2 COVID-19 2020-07-02 Completed Unive rsity of PFIZER VACCINE 00:00:00 [facility] SARS-COV-2 COVID-19 2020-07-02 Completed Unive rsity of PFIZER VACCINE 00:00:00 [facility] SARS-COV-2 COVID-19 2020-07-02 Completed Unive rsity of PFIZER VACCINE 00:00:00 [facility] SARS-COV-2 COVID-19 2020-07-02 Completed Unive rsity of PFIZER VACCINE 00:00:00 [facility] Vital Signs Vital Name Observation Time Observation [...] 16:48:00 112 mm[Hg] Univer sity of pressure [facility] Diastolic blood 2021-10-27 16:48:00 68 mm[Hg] Unive rsity of pressure [facility] Heart rate 2021-10-27 16:48:00 74 /min [facility] Body temperature 2021-10-27 16:48:00 36 [facility] Res[facility] 2021-10-27 16:48:00 16 /min [facility] Oxygen saturation in 2021-10-27 16:48:00 98 /min University of Arterial blood by [facility] Pulse oximetry Branch Body weight 2021-10-25 08:13:00 106.913 kg [facility] BMI 2021-10-25 08:13:00 31.97 kg/m2 [facility] Body height 2021-10-21 15:50:16 182.9 cm [facility] WEIGHT 2021-07-17 05:58:00 128.5 kg WEIGHT [...] 18:11:00 116 mm[Hg] Univer sity of pressure [facility] Diastolic blood 2021-02-23 18:11:00 76 mm[Hg] Unive rsity of pressure [facility] Heart rate 2021-02-23 18:11:00 76 /min [facility] Body weight 2021-02-23 18:11:00 117.028 kg [facility] BMI 2021-02-23 18:11:00 34.99 kg/m2 [facility] Oxygen saturation in 2021-02-23 18:11:00 96 /min University Arterial blood by [facility] Pulse oximetry Branch Systolic blood 2021-12-12 16:31:00 135 mm[Hg] [facility] Diastolic blood 2021-12-12 16:31:00 60 mm[Hg] [facility] Heart rate 2021-12-12 16:31:00 60 /min [facility] Body temperature 2021-12-12 16:31:00 36.11 Zaria [facility] Respiratory rate 2021-12-12 16:31:00 19 /min [facility] Oxygen saturation in 2021-12-12 16:31:00 95 /min [facility] Arterial blood by Medical nter Pulse oximetry Body weight 2021-12-11 06:00:00 100.971 kg [facility] BMI 2021-12-11 06:00:00 30.19 kg/m2 [facility] Body height 2021-12-05 18:51:00 182.9 cm [facility] Procedures Procedure Date / Time Performing Clinician Source Performed REFERRAL- REQUEST/RESPONSE 2021-12-16 05:01:00 Doctor Unassigned , [facility] [place] [facility] POCT-GLUCOSE METER 2021-12-12 12:40:00 Gonzalez Tejeda [facility] POCT-GLUCOSE METER 2021-12-12 06:06:00 Gonzalez Tejeda [facility] POCT-GLUCOSE METER 2021-12-11 19:42:00 Gonzalez Tejeda [facility] POCT-GLUCOSE METER 2021-12-11 17:19:00 Dion Tejedarachel Salinas [facility] POCT-GLUCOSE METER 2021-12-11 12:05:00 Gonzalez Tejeda Rita [facility] POCT-GLUCOSE METER 2021-12-11 08:47:00 Dion Tejedarachel [place] [facility] POCT-GLUCOSE METER 2021-12-11 06:11:00 Nikhil Gonzalez [place] [facility] POCT-GLUCOSE METER 2021-12-10 20:47:00 NinaehGonzalez Rita [facility] POCT-GLUCOSE METER 2021-12-10 17:46:00 Nikhil Gonzalezrachel Salinas [facility] POCT-GLUCOSE METER 2021-12-10 11:16:00 Nikhil Gonzalez C [facility] POCT-GLUCOSE METER 2021-12-10 06:00:00 NinajacksonGonzalez [facility] CBC W/PLT COUNT & AUTO 2021-12-10 05:57[facility]00 [facility] BASIC METABOLIC PANEL 2021-12-10 05:57:00 Gonzalez Tejeda [facility] MAGNESIUM 2021-12-10 05:57:00 Gonzalez Tejeda [facility] PHOSPHORUS 2021-12-10 05:57:00 Gonzalez Tejeda [facility] CBC W/PLT COUNT & AUTO 2021-12-10 05:57:00 Gonzalez Tejeda [facility] POCT-GLUCOSE METER 2021-12-09 21:10:00 NinajacksonGonzalez [facility] POCT-GLUCOSE METER 2021-12-09 17:29:00 NinajacksonGonzalez [facility] POCT-GLUCOSE METER 2021-12-09 11:15:00 Gonzalez Tejeda [facility] CBC W/PLT COUNT & AUTO 2021-12-09 03:15:00 Gonzalez Tejeda [facility] BASIC METABOLIC PANEL 2021-12-09 03:15:00 Gonzalez Tejeda [facility] MAGNESIUM 2021-12-09 03:15:00 Gonzalez Tejeda [facility] PHOSPHORUS 2021-12-09 03:15:00 Gonzalez Tejeda [facility] CBC W/PLT COUNT & AUTO 2021-12-09 03:15:00 Gonzalez Tejeda [facility] POCT-GLUCOSE METER 2021-12-08 23:31:00 Gonzalez Tejeda [facility] POCT-GLUCOSE METER 2021-12-08 20:45:00 Gonzalez Tejeda [facility] CT BRAIN WITHOUT IV 2021-12-08 18:54:00 Gonzalez Tejeda [facility] POCT-GLUCOSE METER 2021-12-08 12:10:00 Gonzalez Tejeda [facility] BASIC METABOLIC PANEL 2021-12-08 04:05:00 [facility] W/[facility]T [facility] & AUTO 2021-12-08 04:05:00 [facility] MAGNESIUM 2021-12-08 04:05:00 [facility] PHOSPHORUS 2021-12-08 04:05[facility] W/[facility]T COUNT & AUTO 2021-12-08 04:05:00 [facility] XR CHEST 1 VIEW PORTABLE / 2021-12-07 21:56:00 Chip Blount [facility] CARDIAC ELECTROPHYSIOLOGY 2021-12-07 17:55:00 Micaela Bingham [facility] STUDY, WITH CARDIAC Medical Cent er PACEMAKER INSERTION POCT-GLUCOSE METER 2021-12-07 16:49:00 Quinn French [facility] XR CHEST 1 VIEW PORTABLE / 2021-12-07 09:44:00 Quinn French [facility] BASIC METABOLIC PANEL 2021-12-07 04:14:00 Skaria, [facility] CBC W/PLT COUNT & AUTO 2021-12-07 04:14:00 Samina [facility] MAGNESIUM 2021-12-07 04:14:00 [place]Te, [facility] PHOSPHORUS 2021-12-07 04:14:00 [place], [facility] TSH/FREE T4 IF INDICATED 2021-12-07 04:14:00 Gonzalez Tejeda [facility] HEMOGLOBIN A1C 2021-12-07 04:14:00 Gonzalez Tejeda [facility] CBC W/PLT COUNT & AUTO 2021-12-07 04:14:00 Samina [facility] ECG 12-LEAD 2021-12-06 19:06:46 Unknown, Hl7 [facility] POCT-GLUCOSE METER 2021-12-06 17:17:00 Quinn French [facility] POCT-GLUCOSE METER 2021-12-06 11:51:00 Anshu Frenchhu Clemente [facility] LIMITED 2D ECHOCARDIOGRAM 2021-12-06 10:55:14 Quinn French [facility] ECHO W/ CONTRAST LIMITED 2021-12-06 10:43:20 Davon Webber [facility] CONT WAVE PULSED DOPPLER 2021-12-06 10:39:43 Quinn French [facility] BASIC METABOLIC PANEL 2021-12-06 04:10:00 Samina [facility] CBC W/PLT COUNT & AUTO 2021-12-06 04:10:00 Samina [facility] MAGNESIUM 2021-12-06 04:10:00 [facility] CBC W/PLT COUNT & AUTO 2021-12-06 04:10:00 [facility] XR CHEST 1 VIEW PORTABLE / 2021-12-05 23:55:00 Samina [facility] HEMOGLOBIN AND HEMATOCRIT 2021-12-05 23:27:00 Samina [facility] POCT-GLUCOSE METER 2021-12-05 21:25:00 Quinn French [facility] COMPREHENSIVE METABOLIC 2021-12-05 20:31:00 Samina Chapinrajendra Marquez I [facility] Center MAGNESIUM 2021-12-05 20:31:00 Samina [facility] PHOSPHORUS 2021-12-05 20:31:00 Samina [facility] HEPATIC FUNCTION PANEL 2021-12-05 20:31:00 [facility] PROTHROMBIN TIME/INR 2021-12-05 20:31:00 [facility] ARRYTHMIA IMPLANT REPORT - 2021-12-05 00:00:00 Provider, Default [facility] CARDIAC CATH REPORT - SCAN 2021-12-05 00:00:00 Provider, Default [facility] EKG-SCANNED 2021-12-05 00:00:00 Provider, Default [facility] POCT GLUCOSE (AUTOMATED) 2021-10-26 00:47:00 Jordon Buckley [facility] POCT GLUCOSE (AUTOMATED) 2021-10-25 22:02:00 Jordon Buckley [facility] POCT GLUCOSE (AUTOMATED) 2021-10-25 16:47:00 Jordon Buckley [facility] POCT GLUCOSE (AUTOMATED) 2021-10-25 12:38:00 Jordon Buckley [facility] BASIC METABOLIC PANEL (NA, 2021-10-25 08:15:00 Cherelle Pratt [facility] K, CL, CO2, GLUCOSE, BUN, Medica l Branch CREATININE, [place]) CBC WITH DIFF 2021-10-25 08:15:00 Cherelle Pratt [facility] N-TERMINAL PRO-BNP 2021-10-25 08:15:00 Cherelle Pratt [facility] POCT GLUCOSE (AUTOMATED) 2021-10-25 01:56:00 Jordon Buckley [facility] POCT GLUCOSE (AUTOMATED) 2021-10-24 21:47:00 Jordon Buckley [facility] POCT GLUCOSE (AUTOMATED) 2021-10-24 16:45:00 Jordon Buckley [facility] POCT GLUCOSE (AUTOMATED) 2021-10-24 12:45:00 Jordon Buckley [facility] PHOSPHORUS 2021-10-24 08:19:00 Jordon [facility]ley [facility] MAGNESIUM 2021-10-24 08:19:00 Jordon [facility] BASIC METABOLIC PANEL (NA, 2021-10-24 08:19:00 Jordon Buckley [facility] K, CL, CO2, GLUCOSE, BUN, Medica l Branch CREATININE, [place]) CBC WITH DIFF 2021-10-24 08:19:00 Jordon [facility]ley [facility] N-TERMINAL PRO-BNP 2021-10-24 08:19:00 Cailin Almonte [facility] POCT GLUCOSE (AUTOMATED) 2021-10-24 00:55:00 Jordon Buckley [facility] POCT GLUCOSE (AUTOMATED) 2021-10-23 22:04:00 Jordon Buckley [facility] BLOOD CULTURE SCREEN 2021-10-23 18:55:00 Jordon Buckley [facility] POCT GLUCOSE (AUTOMATED) 2021-10-23 16:41:00 Jordon Buckley [facility] POCT GLUCOSE (AUTOMATED) 2021-10-23 12:33:00 Jordon Buckley [facility] PHOSPHORUS 2021-10-23 08:31:00 Jordon Buckley [facility] MAGNESIUM 2021-10-23 08:31:00 Jordon [facility]ley [facility] TROPONIN I 2021-10-23 08:31:00 Cailin Almonte [facility] BASIC METABOLIC PANEL (NA, 2021-10-23 08:31:00 Britton Zhang [facility] K, CL, CO2, GLUCOSE, BUN, Medica l Branch CREATININE, [place]) CBC WITH DIFF 2021-10-23 08:31:00 Britton Zhang [facility] N-TERMINAL PRO-BNP 2021-10-23 08:31:00 Cailin Almonte [facility] POCT GLUCOSE (AUTOMATED) 2021-10-23 01:45:00 Jordon Buckley [facility] POCT GLUCOSE (AUTOMATED) 2021-10-22 22:05:00 Jordon Buckley [facility] POCT GLUCOSE (AUTOMATED) 2021-10-22 17:00:00 Jordon Buckley [facility] TRANSTHORACIC ECHO (TTE) 2021-10-22 13:46:00 Britton Zhang [facility] COMPLETE W/ CONTRAST Medical [facility] POCT GLUCOSE (AUTOMATED) 2021-10-22 13:01:00 Jordon Buckley [facility] MAGNESIUM 2021-10-22 08:06:00 Jordon [facility]ley [facility] BASIC METABOLIC PANEL (NA, 2021-10-22 08:06:00 Jordon Buckley [facility] K, CL, CO2, GLUCOSE, BUN, Medica l Branch CREATININE, [place]) LIPID PANEL (19762)(TOTAL 2021-10-22 08:06:00 Britton Zhang [facility] CHOLESTEROL, TRIGLYCERIDES, [facility] HDL) CBC WITH DIFF 2021-10-22 08:06:00 Jordon [facility]ley [facility] N-TERMINAL PRO-BNP 2021-10-22 08:06:00 Britton Zhang [facility] POCT GLUCOSE (AUTOMATED) 2021-10-22 01:07:00 Jordon Buckley [facility] PHOSPHORUS 2021-10-21 22:08:00 Jordon [facility]ley [facility] VITAMIN B12, LEVEL 2021-10-21 22:08:00 Abdullah, Jordon [facility] FOLATE 2021-10-21 22:08:00 [facility] 2021-10-21 22:08:00 [facility] V[facility] D, 25-[place] 2021-10-21 22:08:00 Jordon Buckley [facility] XR CHEST 1 VW 2021-10-21 16:53:00 Kavin Locke [facility] CT HEAD WO CONTRAST 2021-10-21 16:52:00 Kavin Locke [facility] HB ECG ROUTINE & RHYTHM 2021-10-21 16:22:58 Kavin Locke [facility] LIPASE 2021-10-21 16:17:00 Kavin Locke [facility] FERRITIN SERUM 2021-10-21 16:17:00 Marcio [facility] TROPONIN I 2021-10-21 16:17:00 Kavin Locke [facility] THYROID STIMULATING HORMONE 2021-10-21 16:17:00 Marcio [facility] COMP. METABOLIC PANEL 2021-10-21 16:17:00 Kavin Locke [facility] ([id number]) [facility] IRON PANEL 2021-10-21 16:17:00 Marcio [facility] DIFF CONSULT INTERPRETATION 2021-10-21 16:17:00 Marcio [facility] CBC WITH DIFF 2021-10-21 16:17:00 Kavin Locke [facility] GLYCOSYLATED HEMOGLOBIN 2021-10-21 16:17:00 Britton Zhang [facility] (A1C) [facility] URINALYSIS 2021-10-21 16:17:00 Kavin Locke [facility] URINE CULTURE 2021-10-21 16:17:00 Kavin Locke [facility] N-TERMINAL PRO-BNP 2021-10-21 16:17:00 [id number] 2021-08-22 00:00:00 SABLU Bear [facility] POCT-GLUCOSE METER 2021-07-18 18:55:00 [facility] POCT-GLUCOSE METER 2021-07-18 11:48:00 [facility] POCT-GLUCOSE METER 2021-07-18 05:52:00 Meredith [facility] BLOOD GAS, VENOUS 2021-07-18 04:24:00 Uri Bright [facility] CBC W/PLT COUNT & AUTO 2021-07-18 04:23:00 Marino, [facility] HEPATIC FUNCTION PANEL 2021-07-18 04:23:00 Marino, [facility] BASIC METABOLIC PANEL 2021-07-18 04:23:00 Marino, [facility] [facility] MAGNESIUM 2021-07-18 04:23:00 Marino, [facility] CBC W/PLT COUNT & AUTO 2021-07-18 04:23:00 Marino, [facility] XR CHEST 1 VIEW PORTABLE / 2021-07-18 02:42:00 MarinoEnid C [facility] POCT-GLUCOSE METER 2021-07-17 23:44:00 Meredith [facility] POCT-GLUCOSE METER 2021-07-17 18:13:00 Meredith [facility] POCT-GLUCOSE METER 2021-07-17 12:01:00 Meredith [facility] XR CHEST 1 VIEW PORTABLE / 2021-07-17 06:00:00 MarinoEnid kwok C [facility] POCT-GLUCOSE METER 2021-07-17 05:15:00 Meredith [facility] CBC W/PLT COUNT & AUTO 2021-07-17 05:06:00 Marino, [facility] BASIC METABOLIC PANEL 2021-07-17 05:06:00 Marino, [facility] MAGNESIUM 2021-07-17 05:06:00 Marino, [facility] BLOOD GAS, VENOUS 2021-07-17 05:06:00 Uri rBight [facility] CBC W/PLT COUNT & AUTO 2021-07-17 05:06:00 Marino En[facility] POCT-GLUCOSE METER 2021-07-16 23:24:00 Meredith [facility] POCT-GLUCOSE METER 2021-07-16 18:30:00 Meredith [facility] POCT-GLUCOSE METER 2021-07-16 11:29:00 Meredith [facility] POCT-GLUCOSE METER 2021-07-16 07:19:00 Meredith [facility] CBC W/PLT COUNT & AUTO 2021-07-16 05:21:00 Marino En[facility] HEPATIC FUNCTION PANEL 2021-07-16 05:21:00 Marino [facility] BASIC METABOLIC PANEL 2021-07-16 05:21:00 Marino, [facility] MAGNESIUM 2021-07-16 05:21:00 Marino [facility] BLOOD GAS, VENOUS 2021-07-16 05:21:00 Uri Bright [facility] CBC W/PLT COUNT & AUTO 2021-07-16 05:21:00 Marino [facility] XR CHEST 1 VIEW PORTABLE / 2021-07-16 00:21:00 Enid Pichardo [facility] POCT-GLUCOSE METER 2021-07-15 23:40:00 [facility]eredith [facility] POCT-GLUCOSE METER 2021-07-15 22:55:00 Meredith [facility] POCT-GLUCOSE METER 2021-07-15 16:57:00 Meredith [facility] POCT-GLUCOSE METER 2021-07-15 10:45:00 Meredith [facility] CBC W/PLT COUNT & AUTO 2021-07-15 05:48:00 MarinoEnid kwok [facility] BASIC METABOLIC PANEL 2021-07-15 05:48:00 Marino, [facility] MAGNESIUM 2021-07-15 05:48:00 Marino, [facility] BLOOD GAS, VENOUS 2021-07-15 05:48:00 Uri Bright [facility] CBC W/PLT COUNT & AUTO 2021-07-15 05:48:00 Marino, [facility] POCT-GLUCOSE METER 2021-07-15 05:18:00 Meredith [facility] XR CHEST 1 VIEW PORTABLE / 2021-07-15 05:11:00 Enid Pichardo [facility] POCT-GLUCOSE METER 2021-07-15 00:11:00 Meredith [facility] POCT-GLUCOSE METER 2021-07-14 23:44:00 Meredith [facility] POCT-GLUCOSE METER 2021-07-14 20:14:00 Meredith [facility] POCT-GLUCOSE METER 2021-07-14 18:49:00 Meredith [facility] POCT-GLUCOSE METER 2021-07-14 12:25:00 Meredith [facility] POCT-GLUCOSE METER 2021-07-14 05:28:00 [facility]eredith [facility] CBC W/PLT COUNT & AUTO 2021-07-14 04:37:00 Marino, [facility] HEPATIC FUNCTION PANEL 2021-07-14 04:37:00 Marino, [facility] BASIC METABOLIC PANEL 2021-07-14 04:37:00 Marino, [facility] MAGNESIUM 2021-07-14 04:37:00 Marino, [facility] CBC W/PLT COUNT & AUTO 2021-07-14 04:37:00 Marino, [facility] BLOOD GAS, VENOUS 2021-07-14 04:32:00 Uri Bright [facility] XR CHEST 1 VIEW PORTABLE / 2021-07-14 01:40:00 MarinoEnid Rita [facility] POCT-GLUCOSE METER 2021-07-13 23:35:00 [facility] POCT-GLUCOSE METER 2021-07-13 20:37:00 Meredith [facility] POCT-GLUCOSE METER 2021-07-13 17:49:00 Meredith [facility] POCT-GLUCOSE METER 2021-07-13 12:02:00 Meredith [facility] POCT-GLUCOSE METER 2021-07-13 05:03:00 Meredith [facility] XR CHEST 1 VIEW PORTABLE / 2021-07-13 03:25:00 Enid Pichardo [facility] CBC W/PLT COUNT & AUTO 2021-07-13 02:48:00 Enid Pichardo [facility] BASIC METABOLIC PANEL 2021-07-13 02:48:00 Enid Pichardo [facility] MAGNESIUM 2021-07-13 02:48:00 Marino [facility] BLOOD GAS, VENOUS 2021-07-13 02:48:00 Uri Bright [facility] CBC W/PLT COUNT & AUTO 2021-07-13 02:48:00 Enid Pichardo [facility] POCT-GLUCOSE METER 2021-07-12 23:41:00 Meredith [facility] POCT-GLUCOSE METER 2021-07-12 20:55:00 Meredith [facility] POCT-GLUCOSE METER 2021-07-12 17:31:00 Meredith [facility] POCT-GLUCOSE METER 2021-07-12 11:42:00 Meredith [facility] POCT-GLUCOSE METER 2021-07-12 07:27:00 Meredith [facility] CBC W/PLT COUNT & AUTO 2021-07-12 06:33:00 Marino, [facility] [facility] HEPATIC FUNCTION PANEL 2021-07-12 06:33:00 Marino, [facility] BASIC METABOLIC PANEL 2021-07-12 06:33:00 Marino, [facility] MAGNESIUM 2021-07-12 06:33:00 Marino, [facility] BLOOD GAS, VENOUS 2021-07-12 06:33:00 Uri Bright [facility] CBC W/PLT COUNT & AUTO 2021-07-12 06:33:00 Marino, [facility] XR CHEST 1 VIEW PORTABLE / 2021-07-12 02:41:00 Enid Pichardo [facility] POCT-GLUCOSE METER 2021-07-11 23:57:00 [facility] POCT-GLUCOSE METER 2021-07-11 16:50:00 [facility] POCT-GLUCOSE METER 2021-07-11 12:05:00 [facility] ECG 12-LEAD 2021-07-11 08:39:33 David Nichols [facility] POCT-GLUCOSE METER 2021-07-11 05:16:00 Britton [facility] XR CHEST 1 VIEW PORTABLE / 2021-07-11 04:47:00 Enid Pichardo [facility] ECG 12-LEAD 2021-07-11 03:15:00 Unknown, Hl7 Doctor [facility] ECG 12-LEAD 2021-07-11 03:14:29 Unknown, Hl7 Doctor [facility] ECG 12-LEAD 2021-07-11 03:14:29 Unknown, Hl7 [facility] CBC W/PLT COUNT & AUTO 2021-07-11 03:08:00 Marino, [facility] BASIC METABOLIC PANEL 2021-07-11 03:08:00 Marino, [facility] MAGNESIUM 2021-07-11 03:08:00 Marino, [facility] BLOOD GAS, VENOUS 2021-07-11 03:08:00 Uri Bright [facility] HEMOGLOBIN A1C 2021-07-11 03:08:00 [facility] & AUTO 2021-07-11 03:08:00 Marino, [facility] POCT-GLUCOSE METER 2021-07-10 23:53:00 Meredith [facility] POCT-GLUCOSE METER 2021-07-10 20:47:00 Chaitanya Jarquinglen Rachel [facility] POCT-GLUCOSE METER 2021-07-10 17:28:00 Chaitanya Jarquinglen Rachel [facility] POCT-GLUCOSE METER 2021-07-10 14:10:00 Britton [facility] XR ABDOMEN/KUB 1 VIEW 2021-07-10 12:19:00 Darren [facility] POCT-GLUCOSE METER 2021-07-10 11:17:00 Adhi, [facility] XR ABDOMEN/KUB 1 VIEW 2021-07-10 10:34:00 Darren [facility] POCT-GLUCOSE METER 2021-07-10 09:08:00 Adhi, [facility] POCT-GLUCOSE METER 2021-07-10 06:05:00 Adhashish Kvng [facility] CBC W/PLT COUNT & AUTO 2021-07-10 03:40:00 Marino, [facility] HEPATIC FUNCTION PANEL 2021-07-10 03:40:00 Marino, [facility] BASIC METABOLIC PANEL 2021-07-10 03:40:00 Marino, [facility] MAGNESIUM 2021-07-10 03:40:00 Marino, [facility] BLOOD GAS, VENOUS 2021-07-10 03:40:00 Uri Bright [facility] PHOSPHORUS 2021-07-10 03:40:00 Uri Bright [facility] CBC W/PLT COUNT & AUTO 2021-07-10 03:40:00 Virgil Garcia [facility] DIFFERENTIAL [facility] XR ABDOMEN/KUB 1 VIEW 2021-07-10 03:39:00 Adhi, Kvng Amaya [facility] XR CHEST 1 VIEW PORTABLE / 2021-07-10 00:42:00 MarinoEnid kwok [facility] POCT-GLUCOSE METER 2021-07-10 00:34:00 Adhi, [facility] POCT-GLUCOSE METER 2021-07-09 20:59:00 Adhi, [facility] POCT-GLUCOSE METER 2021-07-09 17:10:00 Adhi, [facility] HEMOGLOBIN A1C 2021-07-09 14:15:00 Uri Bright [facility] POCT-GLUCOSE METER 2021-07-09 11:13:00 Adhi, [facility] POCT-GLUCOSE METER 2021-07-09 07:01:00 Adhi, [facility] CBC W/PLT COUNT & AUTO 2021-07-09 05:32:00 Enid Pichardo [facility] BASIC METABOLIC PANEL 2021-07-09 05:32:00 Enid Pichardo [facility] MAGNESIUM 2021-07-09 05:32:00 Enid Pichardo [facility] BLOOD GAS, VENOUS 2021-07-09 05:32:00 [facility] W/[facility] & AUTO 2021-07-09 05:32:00 Virgil Garcia [facility] DIFFERENTIAL [facility] POCT-GLUCOSE METER 2021-07-09 01:19:00 Adhi, [facility] XR CHEST 1 VIEW PORTABLE / 2021-07-09 00:42:00 MarinoEnid kwok [facility] POCT-GLUCOSE METER 2021-07-08 20:48:00 Adhi, [facility] POCT-GLUCOSE METER 2021-07-08 16:42:00 Adhi, [facility] BASIC METABOLIC PANEL 2021-07-08 13:14:[address] [facility] POCT-GLUCOSE METER 2021-07-08 11:38:00 Adhi, [facility] LACTIC ACID, VENOUS 2021-07-08 07:52:[address] [facility] PROCALCITONIN 2021-07-08 07:52:00 [facility] POCT-GLUCOSE METER 2021-07-08 05:03:00 Adhashish, [facility] CBC W/PLT COUNT & AUTO 2021-07-08 03:05:00 Marino [facility] HEPATIC FUNCTION PANEL 2021-07-08 03:05:00 Marino [facility] BASIC METABOLIC PANEL 2021-07-08 03:05:00 Marino, [facility] MAGNESIUM 2021-07-08 03:05:00 Marino [facility] BLOOD GAS, VENOUS 2021-07-08 03:05:00 Uri Bright [facility] APTT 2021-07-08 03:05:00 Marino [facility] CBC W/PLT COUNT & AUTO 2021-07-08 03:05:00 [facility] XR CHEST 1 VIEW PORTABLE / 2021-07-08 02:19:00 Enid Pichardo [facility] POCT-GLUCOSE METER 2021-07-07 23:15:00 Adhi, [facility] POCT-GLUCOSE METER 2021-07-07 21:09:00 Adhi, [facility] POCT-GLUCOSE METER 2021-07-07 16:22:00 Adhi, [facility] CT SINUS WITH IV CONTRAST 2021-07-07 14:29:00 Adhi, [facility] TSH/FREE T4 IF INDICATED 2021-07-07 12:40:00 Adhi, [facility] Jose Luis [facility] BASIC METABOLIC PANEL 2021-07-07 12:40:00 RadhaVirgil peterson [facility] APTT 2021-07-07 12:40:00 Adhi, Kvngyaritza Amaya [facility] MISCELLANEOUS LAB ORDER 2021-07-07 12:21:00 Tanya Nieto [facility] POCT-GLUCOSE METER 2021-07-07 11:08:00 Kacy [facility] POCT-GLUCOSE METER 2021-07-07 07:22:00 Kacy [facility] EEG 12-26 HR CONTINUOUS 2021-07-07 06:29:00 Shara De Jesus [facility] MONITORING WITH VIDEO Medical Ce nter POCT-GLUCOSE METER 2021-07-07 05:54:00 Kacy [facility] CBC W/PLT COUNT & AUTO 2021-07-07 03:21:00 Marino, [facility] BASIC METABOLIC PANEL 2021-07-07 03:21:00 Marino [facility] MAGNESIUM 2021-07-07 03:21:00 Marino, [facility] HEMOGLOBIN A1C 2021-07-07 03:21:00 Kacy [facility] APTT 2021-07-07 03:21:00 Marino [facility] CBC W/PLT COUNT & AUTO 2021-07-07 03:21:00 Rahda [facility] DIFFERENTIAL [facility] BLOOD GAS, VENOUS 2021-07-07 03:11:00 Uri Bright [facility] APTT 2021-07-07 02:10:00 Marino [facility] POCT-GLUCOSE METER 2021-07-07 02:07:00 Kacy, [facility] XR CHEST 1 VIEW PORTABLE / 2021-07-07 01:28:00 Enid Pichardo [facility] SPUTUM CULTURE + GRAM STAIN 2021-07-06 20:07:00 Marino, [facility] APTT 2021-07-06 18:59:00 Marino, [facility] BASIC METABOLIC PANEL 2021-07-06 18:04:00 Marino, [facility] BLOOD CULTURE 2021-07-06 18:03:00 Kacy, [facility] POCT-GLUCOSE METER 2021-07-06 17:49:00 Kacy, [facility] BLOOD CULTURE 2021-07-06 17:24:00 Kacy, [facility] XR CHEST 1 VIEW PORTABLE / 2021-07-06 17:19:00 Melvi Alba [facility] BLOOD GAS, VENOUS 2021-07-06 15:54:00 Cinthya [facility] LACTIC ACID, VENOUS 2021-07-06 15:54:00 Cinthya [facility] POCT-GLUCOSE METER 2021-07-06 12:26:00 Kacy [facility] APTT 2021-07-06 12:08:00 Marino, [facility] POCT-GLUCOSE METER 2021-07-06 05:39:00 Garrett, Ronald Kevin [facility] CBC W/PLT COUNT & AUTO 2021-07-06 05:25:00 Marino, [facility] HEPATIC FUNCTION PANEL 2021-07-06 05:25:00 Marino, [facility] BASIC METABOLIC PANEL 2021-07-06 05:25:00 Marino, [facility] MAGNESIUM 2021-07-06 05:25:00 Marino, [facility] APTT 2021-07-06 05:25:00 Marino, [facility] CBC W/PLT COUNT & AUTO 2021-07-06 05:25:00 Virgil Garcia [facility] XR CHEST 1 VIEW PORTABLE / 2021-07-06 02:33:00 Enid Pichardo [facility] POCT-GLUCOSE METER 2021-07-05 23:34:00 Garrett Ronald [facility] POCT-GLUCOSE METER 2021-07-05 17:47:00 Garrett Ronald [facility] PROTEIN ELECTROPHORESIS, 2021-07-05 11:53:00 Radha [facility] SERUM [facility] SERUM IMMUNOTYPING 2021-07-05 11:53:00 Radha [facility] MISCELLANEOUS LAB ORDER 2021-07-05 11:53:00 Tanya Nieto [facility] POCT-GLUCOSE METER 2021-07-05 10:47:00 Ronald Garrett [facility] POCT-GLUCOSE METER 2021-07-05 08:39:00 AdhKvng hinojosa [facility] APTT 2021-07-05 06:29:00 Marino, [facility] BLOOD GAS, ARTERIAL 2021-07-05 04:13:00 Radha [facility] CBC W/PLT COUNT & AUTO 2021-07-05 04:13:00 Marino [facility] BASIC METABOLIC PANEL 2021-07-05 04:13:00 Marino, [facility] MAGNESIUM 2021-07-05 04:13:00 Marino, [facility] CBC W/PLT COUNT & AUTO 2021-07-05 04:13:00 RadhaVirgil veronica [facility] DIFFERENTIAL [facility] POCT-GLUCOSE METER 2021-07-05 03:34:00 AdhKvng hinojosa [facility] XR CHEST 1 VIEW PORTABLE / 2021-07-05 02:02:00 Enid Pichardo [facility] POCT-GLUCOSE METER 2021-07-04 23:39:00 Adhi, [facility] POCT-GLUCOSE METER 2021-07-04 20:04:00 Adhi, [facility] POCT-GLUCOSE METER 2021-07-04 16:30:00 Adhi, [facility] CT ABDOMEN - RENAL 2021-07-04 15:00[facility] POCT-GLUCOSE METER 2021-07-04 12:02:00 Adhi, [facility] BLOOD CULTURE 2021-07-04 11:53:00 Radha [facility] SPUTUM CULTURE + GRAM STAIN 2021-07-04 11:51:00 Sherry Ed[facility] BLOOD CULTURE 2021-07-04 11:50:00 [facility] PROCALCITONIN 2021-07-04 09:32:00 Radha [facility] CORTISOL 2021-07-04 09:32:00 [facility] LACTIC ACID, ARTERIAL 2021-07-04 09:32:00 [facility] URINALYSIS W/ REFLEX URINE 2021-07-04 09:32:00 Virgil Garcia [facility] CULTURE [facility] POCT-GLUCOSE METER 2021-07-04 06:32:00 Adhi, [facility] POCT-GLUCOSE METER 2021-07-04 04:08:00 Adhi, [facility] BLOOD GAS, ARTERIAL 2021-07-04 03:28:00 Radha, [facility] APTT 2021-07-04 03:25:00 MarinoEnid kwok [facility] MAGNESIUM 2021-07-04 03:24:00 Breezy Urban [facility] BASIC METABOLIC PANEL 2021-07-04 03:24:00 Adhi, Kvng Amaya [facility] CBC W/PLT COUNT & AUTO 2021-07-04 03:24:00 Marino [facility] HEPATIC FUNCTION PANEL 2021-07-04 03:24:00 Marino, [facility] CBC W/PLT COUNT & AUTO 2021-07-04 03:24:00 Virgil Garcia [facility] POCT-GLUCOSE METER 2021-07-04 03:23:00 Adhi, Kvng [facility] POCT-GLUCOSE METER 2021-07-04 02:35:00 Adhi, Kvng Jose Luis [facility] XR CHEST 1 VIEW PORTABLE / 2021-07-04 01:20:00 Enid Pichardo [facility] APTT 2021-07-04 00:20:00 MarinoEnid [facility] POCT-GLUCOSE METER 2021-07-04 00:19:00 Adhi, Kvng Jose Luis [facility] POCT-GLUCOSE METER 2021-07-03 22:24:00 [facility] POCT-GLUCOSE METER 2021-07-03 20:28:00 Adhi, Kvng Jose Luis [facility] POCT-GLUCOSE METER 2021-07-03 18:27:00 [facility] POCT-GLUCOSE METER 2021-07-03 17:47:00 Adhi, Kvng [facility] APTT 2021-07-03 17:38:00 Adhi, Kvngyaritza Amaya [facility] VANCOMYCIN LEVEL, TROUGH 2021-07-03 17:28:00 Elian Us [facility] BASIC METABOLIC PANEL 2021-07-03 17:28:00 Adhi, Kvng Jose Luis [facility] BLOOD GAS, ARTERIAL 2021-07-03 17:28:00 Sheila Alcocer [facility] CBC (HEMOGRAM ONLY) 2021-07-03 17:27:00 [facility]KUB 1 VIEW 2021-07-03 16:30:00 Radha [facility] PORTABLE [facility] 2D ECHO W/ DOPPLER 2021-07-03 15:03:46 Radha [facility] (CW/PW/COLOR) [facility] BASIC METABOLIC PANEL 2021-07-03 14:10:00 AdhKvng hinojosa Jose Luis [facility] MAGNESIUM 2021-07-03 14:10:00 [facility] POCT-GLUCOSE METER 2021-07-03 12:14:00 Adhi, Kvng Amaya [facility] APTT 2021-07-03 09:44:00 [facility] 2021-07-03 09:44:00 [facility] POCT-GLUCOSE METER 2021-07-03 06:03:00 [facility] 2021-07-03 03:31:00 [facility] LACTATE DEHYDROGENASE (LDH) 2021-07-03 03:31:00 [facility] BASIC METABOLIC PANEL 2021-07-03 03:31:00 AdhLaron hinojosama Jose Luis [facility] BLOOD GAS, ARTERIAL 2021-07-03 03:31:00 Radha [facility] CBC W/PLT COUNT & AUTO 2021-07-03 03:31:00 Enid Pichardo [facility] APTT 2021-07-03 03:31:00 MarinoEnid kwok [facility] CBC W/PLT COUNT & AUTO 2021-07-03 03:31:00 Radha [facility] DIFFERENTIAL [facility] XR CHEST 1 VIEW PORTABLE / 2021-07-03 00:15:00 Enid Pichardo [facility] POCT-GLUCOSE METER 2021-07-03 00:02:[facility] 2021-07-02 20:44:00 AdhKvng hinojosa [facility] APTT 2021-07-02 20:44:00 [facility]-GLUCOSE METER 2021-07-02 20:08:[facility] 2021-07-02 18:15:00 WilmarBreezy [facility] POCT-GLUCOSE METER 2021-07-02 18:01:00 Hot, [facility] HC VENOUS DOPPLER EXT UNI 2021-07-02 13:45:00 Scott Garciake [facility] BASIC METABOLIC PANEL 2021-07-02 13:06:00 AdhKvng hinojosa [facility] APTT 2021-07-02 13:06:00 Hotze, [facility] CBC (HEMOGRAM ONLY) 2021-07-02 13:06:00 [facility] POCT-[facility]UCOSE METER 2021-07-02 13:05:00 [facility] MR BRAIN WITHOUT IV 2021-07-02 12:02:00 Breezy Urban [facility] APTT 2021-07-02 06:43:00 Enid Pichardo [facility] POCT-GLUCOSE METER 2021-07-02 05:47:[address] [facility] APTT 2021-07-02 05:05:00 Enid Pichardo [facility] XR CHEST 1 VIEW PORTABLE / 2021-07-02 01:34:00 Enid Pichardo [facility] MAGNESIUM 2021-07-02 01:14:00 [facility] LACTATE DEHYDROGENASE (LDH) 2021-07-02 01:14:00 [facility] CBC W/PLT COUNT & AUTO 2021-07-02 01:14:00 Breezy Urban [facility] DIFFERENTIAL [facility] HEPATIC FUNCTION PANEL 2021-07-02 01:14:00 Sergei Florecita [facility] PHOSPHORUS 2021-07-02 01:14:00 OmFlorecita jordan [facility] BASIC METABOLIC PANEL 2021-07-02 01:14:00 AdhKvng hinojosa [facility] BLOOD GAS, ARTERIAL 2021-07-02 01:14:00 Virgil Garcia [facility] APTT 2021-07-02 01:14:00 Marino [facility] CBC W/PLT COUNT & AUTO 2021-07-02 01:14:00 Breezy Urban [facility] DIFFERENTIAL [facility] POCT-GLUCOSE METER 2021-07-02 00:50:[address] [facility] BASIC METABOLIC PANEL 2021-07-01 21:52:00 Adhi, Kvng Amaya [facility] APTT 2021-07-01 17:34:00 Endy Marroquin [facility] POCT-GLUCOSE METER 2021-07-01 16:41:[address] [facility] BASIC METABOLIC PANEL 2021-07-01 13:33:00 Adhashish, Kvng Amaya [facility] MAGNESIUM 2021-07-01 13:33:[address] [facility] CBC W/PLT COUNT & AUTO 2021-07-01 13:33:00 Breezy Urban [facility] DIFFERENTIAL [facility] CBC W/PLT COUNT & AUTO 2021-07-01 13:33:00 Chandni [facility]en [facility] DIFFERENTIAL [facility] POCT-GLUCOSE METER 2021-07-01 11:02:[address] [facility] APTT 2021-07-01 09:21:00 Endy Marroquin [facility] POCT-GLUCOSE METER 2021-07-01 06:56:[address] [facility] XR CHEST 1 VIEW PORTABLE / 2021-07-01 02:13:00 MarinoEnid kwok [facility] MAGNESIUM 2021-07-01 01:36:00 Breezy Urban [facility] LACTATE DEHYDROGENASE (LDH) 2021-07-01 01:36:00 Breezy Urban [facility] HEPATIC FUNCTION PANEL 2021-07-01 01:36:00 Florecita Mai [facility] PHOSPHORUS 2021-07-01 01:36:00 OmFlorecita jordan [facility] BASIC METABOLIC PANEL 2021-07-01 01:36:00 AdhKvng hinojosa [facility] APTT 2021-07-01 01:36:00 MarinoEnid kwok [facility] CBC W/PLT COUNT & AUTO 2021-07-01 01:35:00 Breezy Urban [facility] Eloisa [facility] DIFFERENTIAL [facility] BLOOD GAS, ARTERIAL 2021-07-01 01:35:00 Virgil Garcia [facility] CBC W/PLT COUNT & AUTO 2021-07-01 01:35:00 Chandni Yuen CHI asael DIFFERENTIAL [facility] POCT-GLUCOSE METER 2021-06-30 23:39:[address] [facility] POCT-GLUCOSE METER 2021-06-30 21:07:[address] [facility] APTT 2021-06-30 18:40:00 MarinoEnid [facility] APTT 2021-06-30 18:10:00 Marino, [facility] MAGNESIUM 2021-06-30 16:10:00 Breezy Urban [facility] CBC W/PLT COUNT & AUTO 2021-06-30 16:10:00 Breezy Urban [facility] DIFFERENTIAL [facility] BASIC METABOLIC PANEL 2021-06-30 16:10:00 AdhKvng hinojosa [facility] CBC W/PLT COUNT & AUTO 2021-06-30 16:10:00 Chandni Yuen [facility] Lu[facility] DIFFERENTIAL [facility] POCT-GLUCOSE METER 2021-06-30 15:47:[address] [facility] POCT-GLUCOSE METER 2021-06-30 11:45:[address] [facility] BASIC METABOLIC PANEL 2021-06-30 11:43:00 AdhKvng hinojosa CH I [facility] APTT 2021-06-30 11:43:00 Enid Pichardo [facility] BLOOD CULTURE 2021-06-30 07:41:00 Alana Peralta [facility] POCT-GLUCOSE METER 2021-06-30 06:09:00 Cara [facility] XR CHEST 1 VIEW PORTABLE / 2021-06-30 04:44:00 Enid Pichardo [facility] MAGNESIUM 2021-06-30 03:24:00 Breezy Urban [facility] LACTATE DEHYDROGENASE (LDH) 2021-06-30 03:24:00 WilmarBreezy [facility] BLOOD GAS, ARTERIAL 2021-06-30 03:24:00 Chandni Yuen [facility]I L [facility] CBC W/PLT COUNT & AUTO 2021-06-30 03:24:00 Breezy Urban [facility] DIFFERENTIAL [facility] HEPATIC FUNCTION PANEL 2021-06-30 03:24:00 Florecita Mai [facility] PHOSPHORUS 2021-06-30 03:24:00 ShalomianFlorecita [facility] BASIC METABOLIC PANEL 2021-06-30 03:24:00 AdhKvng hinojosa I [facility] LACTIC ACID, ARTERIAL 2021-06-30 03:24:00 Casey Spicer [facility] APTT 2021-06-30 03:24:00 Marino, [facility] CBC W/PLT COUNT & AUTO 2021-06-30 03:24:00 Chandni Yuen [facility] S t [facility] DIFFERENTIAL [facility] POCT-GLUCOSE METER 2021-06-30 01:49:[address] [facility] POCT-GLUCOSE METER 2021-06-29 22:20:[address] [facility] BASIC METABOLIC PANEL 2021-06-29 20:57:00 Kvng Whittaker CH I [facility] LACTIC ACID, ARTERIAL 2021-06-29 20:57:00 Casey Spicer [facility] VENOUS DOPPLER LEGS 2021-06-29 18:40:00 Ela Rosario [facility] POCT-GLUCOSE METER 2021-06-29 17:30:[address] [facility] US ABDOMEN LIMITED 2021-06-29 17:16:00 Sheila Alcocer [facility] VANCOMYCIN LEVEL, TROUGH 2021-06-29 16:54:00 Elian Us [facility] BLOOD CULTURE 2021-06-29 16:53:00 Abraham [facility] BLOOD CULTURE 2021-06-29 16:46:00 Abraham [facility] MAGNESIUM 2021-06-29 16:19:00 Breezy Urban [facility] BLOOD GAS, ARTERIAL 2021-06-29 16:19:00 Chandni Yuen [facility] CBC W/PLT COUNT & AUTO 2021-06-29 16:19:00 Breezy Urban [facility] DIFFERENTIAL [facility] CBC W/PLT COUNT & AUTO 2021-06-29 16:19:00 Chandni Yuen [facility] DIFFERENTIAL [facility] APTT 2021-06-29 14:28:00 Enid Pichardo [facility] SPUTUM CULTURE + GRAM STAIN 2021-06-29 14:28:00 Zackery Peralta [facility] POCT-GLUCOSE METER 2021-06-29 12:13:[address] [facility] BASIC METABOLIC PANEL 2021-06-29 12:10:00 Kvng Whittaker CH I [facility] APTT 2021-06-29 08:29:00 MarinoEnid kwok [facility] POCT-GLUCOSE METER 2021-06-29 06:16:[address] [facility] XR CHEST 1 VIEW PORTABLE / 2021-06-29 05:09:00 Enid Pichardo [facility] POCT-GLUCOSE METER 2021-06-29 01:32:[address] [facility] BLOOD GAS, ARTERIAL 2021-06-29 01:18:00 Chandni Yuen [facility] MAGNESIUM 2021-06-29 01:17:00 Brezey Urban [facility] LACTATE DEHYDROGENASE (LDH) 2021-06-29 01:17:00 Breezy Urban [facility] CBC W/PLT COUNT & AUTO 2021-06-29 01:17:00 Breezy Urban [facility] DIFFERENTIAL [facility] BASIC METABOLIC PANEL 2021-06-29 01:17:00 WilmarBreezy [facility] URIC ACID 2021-06-29 01:17:00 Tanya Nieto [facility] APTT 2021-06-29 01:17:00 Enid Pichardo [facility] HEPATIC FUNCTION PANEL 2021-06-29 01:17:00 Florecita Mai [facility] PHOSPHORUS 2021-06-29 01:17:00 Florecita Mai [facility] CBC W/PLT COUNT & AUTO 2021-06-29 01:17:00 Chandni Yuen [facility] DIFFERENTIAL [facility] BASIC METABOLIC PANEL 2021-06-28 22:31:00 Breezy Urban [facility] POCT-GLUCOSE METER 2021-06-28 20:14:[address] [facility] APTT 2021-06-28 18:37:00 MarinoEnid [facility] POCT-GLUCOSE METER 2021-06-28 18:10:[address] [facility] MAGNESIUM 2021-06-28 17:46:00 Breezy Urban [facility] CBC W/PLT COUNT & AUTO 2021-06-28 17:46:00 Breezy Urban [facility] CBC W/PLT COUNT & AUTO 2021-06-28 17:46:00 Chandni Yuen [facility] BLOOD GAS, ARTERIAL 2021-06-28 17:45:00 Chandni Yuen [facility] ASPERGILLUS GALACTOMANNAN 2021-06-28 12:00:00 Breezy Urban CH I [facility] APTT 2021-06-28 12:00:00 Enid Pichardo [facility] POCT-GLUCOSE METER 2021-06-28 11:55:[address] [facility] BASIC METABOLIC PANEL 2021-06-28 10:24:00 Breezy Urban [facility] XR CHEST 1 VIEW PORTABLE / 2021-06-28 05:04:00 Enid Pichardo [facility] BLOOD GAS, ARTERIAL 2021-06-28 04:26:00 Chandni Yuen [facility] MAGNESIUM 2021-06-28 04:24:00 Breezy Urban [facility] LACTATE DEHYDROGENASE (LDH) 2021-06-28 04:24:00 Breezy Urban [facility] CBC W/PLT COUNT & AUTO 2021-06-28 04:24:00 Breezy Urban [facility] BASIC METABOLIC PANEL 2021-06-28 04:24:00 Breezy Urban [facility] PHOSPHORUS 2021-06-28 04:24:00 Lino Moreira [facility] HEPATIC FUNCTION PANEL 2021-06-28 04:24:00 Benita Martinez [facility] APTT 2021-06-28 04:24:00 Enid Pichardo [facility] CBC W/PLT COUNT & AUTO 2021-06-28 04:24:00 Chandni Yuen [facility] DIFFERENTIAL [facility] (CELLAVISION MANUAL DIFF) 2021-06-28 04:24:00 Chandni Yuen CH I [facility] POCT-GLUCOSE METER 2021-06-27 23:33:[address] [facility] BASIC METABOLIC PANEL 2021-06-27 22:18:00 Breezy Urban [facility] POCT-GLUCOSE METER 2021-06-27 21:10:[address] [facility] POCT-GLUCOSE METER 2021-06-27 18:10:00 [facility]LOOD [facility], ARTERIAL 2021-06-27 18:08:[address] [facility] MAGNESIUM 2021-06-27 15:55:00 Breezy Urban [facility] CBC W/PLT COUNT & AUTO 2021-06-27 15:55:[address] [facility] DIFFERENTIAL [facility] BASIC METABOLIC PANEL 2021-06-27 15:55:00 Breezy Urban [facility] CBC W/PLT COUNT & AUTO 2021-06-27 15:55:00 Chandni Yuen CHI S t Luasael DIFFERENTIAL [facility] POCT-GLUCOSE METER 2021-06-27 12:16:[address] [facility] PHOSPHORUS 2021-06-27 11:11:00 Lino Moreira [facility] HEPATIC FUNCTION PANEL 2021-06-27 11:11:00 Benita Martinez [facility] HAPTOGLOBIN 2021-06-27 11:11:00 WilmarBreezy [facility] RETICULOCYTE COUNT 2021-06-27 11:11:00 [facility] DIRECT AHG (ROSELINE)/DIRECT 2021-06-27 11:11:00 Breezy Urban [facility] FELIPE [facility] ABORH, MANUAL 2021-06-27 11:11:00 Breezy Urban [facility] XR CHEST 1 VIEW PORTABLE / 2021-06-27 10:10:00 Enid Pichardo [facility] POCT-GLUCOSE METER 2021-06-27 09:34:[address] [facility] APTT 2021-06-27 02:17:00 Endy Marroquin [facility] MAGNESIUM 2021-06-27 02:17:00 Breezy Urban [facility] LACTATE DEHYDROGENASE (LDH) 2021-06-27 02:17:00 Breezy Urban [facility] BLOOD GAS, ARTERIAL 2021-06-27 02:17:00 Chandni Yuen [facility] CBC W/PLT COUNT & AUTO 2021-06-27 02:17:[address] [facility] DIFFERENTIAL [facility] BASIC METABOLIC PANEL 2021-06-27 02:17:00 Endy Marroquin [facility] CBC W/PLT COUNT & AUTO 2021-06-27 02:17:[address] [facility] DIFFERENTIAL [facility] (CELLAVISION MANUAL DIFF) 2021-06-27 02:17:00 Chandni Yuen CH I [facility] BLOOD CULTURE 2021-06-26 18:43:00 [facility] 2021-06-26 18:43:00 [facility] IDENTIFICATION PANEL [facility] POCT-GLUCOSE METER 2021-06-26 18:17:[address] [facility] MAGNESIUM 2021-06-26 14:54:00 Breezy Urban [facility] CBC W/PLT COUNT & AUTO 2021-06-26 14:54:00 Breezy Urban [facility]I DIFFERENTIAL [facility] BASIC METABOLIC PANEL 2021-06-26 14:54:00 Endy Marroquin [facility] BLOOD GAS, ARTERIAL 2021-06-26 14:54:00 Endy Marroquin [facility] CBC W/PLT COUNT & AUTO 2021-06-26 14:54:00 Chandni Yuen [facility] DIFFERENTIAL [facility] POCT-GLUCOSE METER 2021-06-26 12:43:[address] [facility] XR CHEST 1 VIEW PORTABLE / 2021-06-26 12:38:00 Radha Urbano [facility] BEDSIDE [facility] XR ABDOMEN/KUB 1 VIEW 2021-06-26 12:38:00 Radha Urbano [facility] PORTABLE [facility] APTT 2021-06-26 11:46:00 Endy Marroquin [facility] FUNGITELL R B-D-GLUCAN WITH 2021-06-26 08:43:00 Zackery Peralta [facility] REFLEX TO [facility] POCT-GLUCOSE METER 2021-06-26 08:00:[address] [facility] MAGNESIUM 2021-06-26 04:40:00 Breezy Urban [facility] LACTATE DEHYDROGENASE (LDH) 2021-06-26 04:40:00 Breezy Urban [facility] BASIC METABOLIC PANEL 2021-06-26 04:40:00 Chayo oMrgan [facility] PT/APTT 2021-06-26 04:40:00 Chandni Yuen [facility] BLOOD GAS, ARTERIAL 2021-06-26 04:40:00 Chandni Yuen [facility] CBC W/PLT COUNT & AUTO 2021-06-26 04:40:00 Breezy Urban CHI Luasael DIFFERENTIAL [facility] PHOSPHORUS 2021-06-26 04:40:00 Lino Moreira [facility] HEPATIC FUNCTION PANEL 2021-06-26 04:40:00 Benita Martinez [facility] CBC W/PLT COUNT & AUTO 2021-06-26 04:40:00 Chandni Yuen CHI S t Luasael DIFFERENTIAL [facility] POCT-GLUCOSE METER 2021-06-26 00:02:[address] [facility] VANCOMYCIN LEVEL, TROUGH 2021-06-25 23:56:00 Chandni Yuen [facility] CBC W/PLT COUNT & AUTO 2021-06-25 23:56:00 José Antonio Albright [facility] DIFFERENTIAL [facility] APTT 2021-06-25 23:56:00 MarinoEnid kwok [facility] CBC W/PLT COUNT & AUTO 2021-06-25 23:56:00 Hotze, José Antonio [facility] DIFFERENTIAL [facility] POCT-GLUCOSE METER 2021-06-25 17:40:[address] [facility] BLOOD GAS, ARTERIAL 2021-06-25 16:35:00 Chandni Yuen [facility] MAGNESIUM 2021-06-25 16:34:00 Breezy Urban [facility] BASIC METABOLIC PANEL 2021-06-25 16:34:00 Chayo Morgan [facility] CBC W/PLT COUNT & AUTO 2021-06-25 16:34:00 Breezy Urban [facility] DIFFERENTIAL [facility] APTT 2021-06-25 16:34:00 Chandni Yu[address] [facility] CBC W/PLT COUNT & AUTO 2021-06-25 16:34:00 Chandni Yuen [facility] S [facility] DIFFERENTIAL [facility] OSMOLALITY, URINE 2021-06-25 12:37:00 Chandni Yuen [facility] OSMOLALITY, SERUM 2021-06-25 12:37:00 Wilfrid Chandni [facility] APTT 2021-06-25 12:37:00 Wilfrid Chandni [facility] POCT-GLUCOSE METER 2021-06-25 12:26:[address] [facility] XR ABDOMEN/KUB 1 VIEW 2021-06-25 10:09:00 Chandni Yuen [facility] PORTABLE [facility] XR CHEST 1 VIEW PORTABLE / 2021-06-25 10:05:00 Chandni Yuen [facility] BEDSIDE [facility] APTT 2021-06-25 05:43:00 Enid Pichardo [facility] POCT-GLUCOSE METER 2021-06-25 05:39:[address] [facility] BLOOD GAS, ARTERIAL 2021-06-25 04:40:00 Chandni Yuen [facility] MAGNESIUM 2021-06-25 04:38:00 [facility] LACTATE DEHYDROGENASE (LDH) 2021-06-25 04:38:00 [facility] CBC W/PLT COUNT & AUTO 2021-06-25 04:38:00 Endy Marroquin [facility] BASIC METABOLIC PANEL 2021-06-25 04:38:00 Chayo Morgan [facility] PHOSPHORUS 2021-06-25 04:38:00 LillieLino [facility] HEPATIC FUNCTION PANEL 2021-06-25 04:38:00 Benita Martinez [facility] CBC W/PLT COUNT & AUTO 2021-06-25 04:38:00 Endy Marroquin [facility] PT/APTT 2021-06-25 01:29:00 Chandni Yuen [facility] APTT 2021-06-25 01:29:00 Marino, [facility] VANCOMYCIN LEVEL, TROUGH 2021-06-25 00:29:00 Chandni Yuen [facility] POCT-GLUCOSE METER 2021-06-25 00:19:[address] [facility] APTT 2021-06-24 23:18:00 Marino [facility] APTT 2021-06-24 21:11:00 Marino, [facility] POCT-GLUCOSE METER 2021-06-24 17:50:[address] [facility] BLOOD GAS, ARTERIAL 2021-06-24 17:16:00 Chandni Yuen [facility] BASIC METABOLIC PANEL 2021-06-24 17:07:00 Eddie Chayo [facility] BLOOD CULTURE 2021-06-24 14:40:00 Chandni Yuen [facility] BLOOD CULTURE 2021-06-24 14:40:00 Chandni Yuen [facility] IDENTIFICATION PANEL [facility] BLOOD CULTURE 2021-06-24 14:38:00 Chandni Yuen [facility] 2D ECHO W/ DOPPLER 2021-06-24 14:20:52 Chandni Yuen [facility] (CW/PW/COLOR) [facility] APTT 2021-06-24 14:14:00 Enid Pichardo [facility] LACTIC ACID, ARTERIAL 2021-06-24 14:14:00 Chandni Yuen [facility] CORTISOL 2021-06-24 14:14:00 Chandni Yuen [facility] XR ABDOMEN/KUB 1 VIEW 2021-06-24 12:16:00 Chandni Yuen [facility] PORTABLE [facility] POCT-GLUCOSE METER 2021-06-24 11:55:[address] [facility] BLOOD GAS, ARTERIAL 2021-06-24 11:05:00 Chandni Yuen [facility] XR ABDOMEN/KUB 1 VIEW 2021-06-24 10:26:00 Chandni Yuen [facility] PORTABLE [facility] XR ABDOMEN/KUB 1 VIEW 2021-06-24 10:11:00 José Antonio Albright [facility] BLOOD GAS, ARTERIAL 2021-06-24 08:23:00 Anirudh Yuennaz [facility] PT/APTT 2021-06-24 08:23:00 Wilfrid Chandni [facility] XR CHEST 1 VIEW PORTABLE / 2021-06-24 07:12:[address] [facility] POCT-GLUCOSE METER 2021-06-24 05:27:[address] [facility] XR CHEST 1 VIEW PORTABLE / 2021-06-24 04:51:[address] [facility] MAGNESIUM 2021-06-24 04:30:00 Breezy Urban [facility] LACTATE DEHYDROGENASE (LDH) 2021-06-24 04:30:00 Breezy Urban [facility] CBC W/PLT COUNT & AUTO 2021-06-24 04:30:00 Endy Marroquin [facility] BASIC METABOLIC PANEL 2021-06-24 04:30:00 Chayo Morgan [facility] PHOSPHORUS 2021-06-24 04:30:00 Lino Moreira [facility] HEPATIC FUNCTION PANEL 2021-06-24 04:30:00 Benita Martinez [facility] BLOOD GAS, ARTERIAL 2021-06-24 04:30:00 Ela Rosario [facility] CBC W/PLT COUNT & AUTO 2021-06-24 04:30:00 Endy Marroquin [facility] VANCOMYCIN LEVEL, TROUGH 2021-06-24 01:29:00 Zion Kuo [facility] POCT-GLUCOSE METER 2021-06-23 23:30:[address] [facility] POCT-GLUCOSE METER 2021-06-23 20:35:[address] [facility] HC LAB HIV-1 AG W/HIV-1&2 2021-06-23 18:09:00 José Antonio Albright CH, I [facility] POCT-GLUCOSE METER 2021-06-23 17:47:[address] [facility] MAGNESIUM 2021-06-23 17:22:00 Breezy Urban [facility] BASIC METABOLIC PANEL 2021-06-23 17:22:00 [facility] 2021-06-23 17:22:00 Gary, [facility] W/DIFFERENTIAL [facility] CULTURE + GRAM STAIN 2021-06-23 17:22:00 Gary, [facility] PROTEIN, CSF 2021-06-23 17:22:00 Gary, [facility] GLUCOSE, CSF 2021-06-23 17:22:00 Gary, [facility] MENINGITIS/ENCEPHALITIS 2021-06-23 17:18:00 Enrique Mercado [facility] PANEL [facility] PT/APTT 2021-06-23 14:17:[address] [facility] PROTHROMBIN TIME/INR 2021-06-23 14:17:00 [facility] EEG AWAKE AND DROWSY 2021-06-23 12:29:00 Fuad Cai [facility] POCT-GLUCOSE METER 2021-06-23 11:58:[address] [facility] POCT-GLUCOSE METER 2021-06-23 09:33:[address] [facility] POCT-GLUCOSE METER 2021-06-23 05:22:[address] [facility] APTT 2021-06-23 05:16:00 Enid Pichardo [facility] MAGNESIUM 2021-06-23 05:10:00 Breezy Urban [facility] LACTATE DEHYDROGENASE (LDH) 2021-06-23 05:10:00 Breezy Urban [facility] BASIC METABOLIC PANEL 2021-06-23 05:10:00 Chayo Morgan [facility] PHOSPHORUS 2021-06-23 05:10:00 Lino Moreira [facility] HEPATIC FUNCTION PANEL 2021-06-23 05:10:00 Benita Martinez [facility] CBC W/PLT COUNT & AUTO 2021-06-23 05:09:00 Endy Marroquin [facility] Eloisa [facility] CBC W/PLT COUNT & AUTO 2021-06-23 05:09:00 Endy Marroquin [facility] APTT 2021-06-23 02:44:00 MarinoEnid [facility] APTT 2021-06-23 00:30:00 Enid Pichardo [facility] POCT-GLUCOSE METER 2021-06-22 23:13:[address] [facility] POCT-GLUCOSE METER 2021-06-22 16:34:[address] [facility] MAGNESIUM 2021-06-22 16:11:00 Breezy Urban [facility] BASIC METABOLIC PANEL 2021-06-22 16:11:00 Eddie [facility] GLUCOSE 2021-06-22 16:11:00 Benita Martinez [facility] APTT 2021-06-22 16:11:00 Eddie [facility] POCT-GLUCOSE METER 2021-06-22 14:07:[address] [facility] POCT-GLUCOSE METER 2021-06-22 11:33:[address] [facility] POCT-GLUCOSE METER 2021-06-22 10:20:[address] [facility] APTT 2021-06-22 10:15:00 Enid Pichardo [facility] GLUCOSE 2021-06-22 10:15:00 Benita Martinez [facility] BASIC METABOLIC PANEL 2021-06-22 10:15:00 Radha Urbano [facility] POCT-GLUCOSE METER 2021-06-22 09:00:[address] [facility] ECG 12-LEAD 2021-06-22 08:55:23 Unknown, Hl7 [facility] ECG 12-LEAD 2021-06-22 08:55:23 Unknown, Hl7 [facility] POCT-GLUCOSE METER 2021-06-22 07:51:[address] [facility] POCT-GLUCOSE METER 2021-06-22 06:53:[address] [facility] POCT-GLUCOSE METER 2021-06-22 05:41:[address] [facility] POCT-GLUCOSE METER 2021-06-22 03:55:00 [facility] BLOOD [facility]AS, ARTERIAL 2021-06-22 03:48:00 Ela Rosario [facility] CBC W/PLT COUNT & AUTO 2021-06-22 03:47:00 Endy Marroquin [facility] CBC W/PLT COUNT & AUTO 2021-06-22 03:47:00 Endy Marroquin [facility] (CELLAVISION MANUAL DIFF) 2021-06-22 03:47:00 Endy Marroquin CH, I [facility] APTT 2021-06-22 03:46:00 Enid Pichardo [facility] MAGNESIUM 2021-06-22 03:46:00 Breezy Urban [facility] LACTATE DEHYDROGENASE (LDH) 2021-06-22 03:46:00 Breezy Urban [facility] BASIC METABOLIC PANEL 2021-06-22 03:46:00 Radha Urbano [facility] PHOSPHORUS 2021-06-22 03:46:00 Lino Moreira [facility] HEPATIC FUNCTION PANEL 2021-06-22 03:46:00 Benita Martinez [facility] POCT-GLUCOSE METER 2021-06-22 03:20:[address] [facility] POCT-GLUCOSE METER 2021-06-22 03:02:[address] [facility] POCT-GLUCOSE METER 2021-06-22 02:04:00 Marroquin, Endy [facility] POCT-GLUCOSE METER 2021-06-22 01:20:[address] [facility] VANCOMYCIN LEVEL, TROUGH 2021-06-22 00:34:00 Elian Us [facility] POCT-GLUCOSE METER 2021-06-22 00:02:[address] [facility] POCT-GLUCOSE METER 2021-06-21 23:06:[address] [facility] BASIC METABOLIC PANEL 2021-06-21 22:09:00 [facility] 2021-06-21 22:04:[address] [facility] POCT-GLUCOSE METER 2021-06-21 21:17:[address] [facility] POCT-GLUCOSE METER 2021-06-21 20:24:[address] [facility] POCT-GLUCOSE METER 2021-06-21 19:56:[address] [facility] APTT 2021-06-21 17:56:00 Enid Pichardo [facility] MAGNESIUM 2021-06-21 17:55:00 Breezy Urban [facility] BASIC METABOLIC PANEL 2021-06-21 17:55:00 [facility] POCT-GLUCOSE METER 2021-06-21 17:55:[address] [facility] POCT-GLUCOSE METER 2021-06-21 17:05:[address] [facility] POCT-GLUCOSE METER 2021-06-21 16:21:[address] [facility] POCT-GLUCOSE METER 2021-06-21 14:17:[address] [facility] POCT-GLUCOSE METER 2021-06-21 13:02:[address] [facility] APTT 2021-06-21 12:34:00 Marino Enid [facility] POCT-GLUCOSE METER 2021-06-21 12:11:00 Cara [facility] POCT-GLUCOSE METER 2021-06-21 11:16:00 Cara [facility] BLOOD GAS, ARTERIAL 2021-06-21 10:29:00 Cara [facility] BASIC METABOLIC PANEL 2021-06-21 10:28:00 [facility] HEMO[facility] HEMATOCRIT 2021-06-21 10:28:[address] [facility] POCT-GLUCOSE METER 2021-06-21 10:22:00 [facility] POCT-GLUCOSE METER 2021-06-21 09:26:00 Cara [facility] POCT-GLUCOSE METER 2021-06-21 08:23:00 [facility] POCT-GLUCOSE METER 2021-06-21 06:17:00 Cara [facility] POCT-GLUCOSE METER 2021-06-21 05:44:00 Cara [facility] APTT 2021-06-21 04:57:00 Marino [facility] BLOOD GAS, ARTERIAL 2021-06-21 04:56:00 Endy Marroquin [facility] MAGNESIUM 2021-06-21 04:55:00 [facility] LACTATE DEHYDROGENASE (LDH) 2021-06-21 04:55:00 [facility] BASIC METABOLIC PANEL 2021-06-21 04:55:00 [facility] & AUTO 2021-06-21 04:55:00 Endy Marroquin [facility] PHOSPHORUS 2021-06-21 04:55:00 Lino Moreira [facility] HEPATIC FUNCTION PANEL 2021-06-21 04:55:00 Benita Martinez [facility] CBC W/PLT COUNT & AUTO 2021-06-21 04:55:00 Endy Marroquin [facility] (CELLAVISION MANUAL DIFF) 2021-06-21 04:55:[address] [facility] POCT-GLUCOSE METER 2021-06-21 04:43:[address] [facility] POCT-GLUCOSE METER 2021-06-21 03:25:[address] [facility] POCT-GLUCOSE METER 2021-06-21 02:02:[address] [facility] POCT-GLUCOSE METER 2021-06-21 01:02:[address] [facility] POCT-GLUCOSE METER 2021-06-20 23:17:[address] [facility] BASIC METABOLIC PANEL 2021-06-20 23:10:00 [facility] 2021-06-20 22:32:00 Endy Marroquin [facility] HEMOGLOBIN AND HEMATOCRIT 2021-06-20 22:31:[address] [facility] APTT 2021-06-20 22:31:00 Enid Pichardo [facility] POCT-GLUCOSE METER 2021-06-20 22:23:[address] [facility] POCT-GLUCOSE METER 2021-06-20 21:01:[address] [facility] POCT-GLUCOSE METER 2021-06-20 20:49:[address] [facility] POCT-GLUCOSE METER 2021-06-20 18:07:[address] [facility] BLOOD GAS, ARTERIAL 2021-06-20 18:00:00 Sundeep [facility] POCT-GLUCOSE METER 2021-06-20 17:23:[address] [facility] BASIC METABOLIC PANEL 2021-06-20 16:19:00 Sundeep [facility] MAGNESIUM 2021-06-20 16:19:00 Sundeep [facility] POCT-GLUCOSE METER 2021-06-20 15:30:[address] [facility] BLOOD CULTURE 2021-06-20 14:54:00 Sundeep [facility] XR CHEST 1 VIEW PORTABLE / 2021-06-20 14:50:00 Endy Marroquin [facility] BEDSIDE [facility] POCT-GLUCOSE METER 2021-06-20 13:16:[address] [facility] URINALYSIS W/ REFLEX URINE 2021-06-20 12:42:00 Radha Urbano [facility] SPUTUM CULTURE + GRAM STAIN 2021-06-20 12:42:00 Sundeep [facility] URINE CULTURE 2021-06-20 12:42:00 Sundeep [facility] HIGH SENSITIVITY TROPONIN I 2021-06-20 11:33:00 Sundeep [facility] CBC W/PLT COUNT & AUTO 2021-06-20 11:24:00 Sundeep [facility] BASIC METABOLIC PANEL 2021-06-20 11:24:00 Sundeep [facility] CBC W/PLT COUNT & AUTO 2021-06-20 11:24:00 Sundeep [facility] POCT-GLUCOSE METER 2021-06-20 11:12:[address] [facility] ECG 12-LEAD 2021-06-20 11:02:22 Unknown, Hl7 [facility] POCT-GLUCOSE METER 2021-06-20 09:06:[address] [facility] POCT-GLUCOSE METER 2021-06-20 08:00:[address] [facility] POCT-GLUCOSE METER 2021-06-20 06:20:[address] [facility] POCT-GLUCOSE METER 2021-06-20 05:15:[address] [facility] BLOOD GAS, ARTERIAL 2021-06-20 04:45:00 Chayo Morgan [facility] CBC W/PLT COUNT & AUTO 2021-06-20 04:44:00 Mami Johnson [facility] BASIC METABOLIC PANEL 2021-06-20 04:44:00 Benita Martinez CH I [facility] MAGNESIUM 2021-06-20 04:44:00 Breezy Urban [facility] PHOSPHORUS 2021-06-20 04:44:00 Lino Moreira [facility] HEPATIC FUNCTION PANEL 2021-06-20 04:44:00 Benita Martinez HI [facility] APTT 2021-06-20 04:44:00 MarinoEnid kwok [facility] CBC W/PLT COUNT & AUTO 2021-06-20 04:44:00 Mami Johnson [facility] POCT-GLUCOSE METER 2021-06-20 04:14:[address] [facility] POCT-GLUCOSE METER 2021-06-20 03:23:[address] [facility] POCT-GLUCOSE METER 2021-06-20 02:14:[address] [facility] POCT-GLUCOSE METER 2021-06-20 00:18:[address] [facility] POCT-GLUCOSE METER 2021-06-19 23:25:[address] [facility] POCT-GLUCOSE METER 2021-06-19 22:18:[address] [facility] APTT 2021-06-19 21:59:00 MarinoEnid [facility] BASIC METABOLIC PANEL 2021-06-19 21:58:00 Benita Martinez CH I [facility] POCT-GLUCOSE METER 2021-06-19 21:30:[address] [facility] POCT-GLUCOSE METER 2021-06-19 20:37:00 Cara [facility] POCT-GLUCOSE METER 2021-06-19 17:51:00 Cara [facility] BASIC METABOLIC PANEL 2021-06-19 17:48:00 Benita Martinez I [facility] POCT-GLUCOSE METER 2021-06-19 15:39:00 Cara [facility] APTT 2021-06-19 14:26:00 Marino, [facility] POCT-GLUCOSE METER 2021-06-19 14:21:00 Cara [facility] POCT-GLUCOSE METER 2021-06-19 12:58:00 Cara [facility] BASIC METABOLIC PANEL 2021-06-19 12:09:00 Benita Martinez I [facility] VANCOMYCIN LEVEL, TROUGH 2021-06-19 12:09:00 FlaBryan martinez [facility] APTT 2021-06-19 12:09:00 MarinoEnid kwok [facility] MAGNESIUM 2021-06-19 12:09:00 Breezy Urban [facility] POCT-GLUCOSE METER 2021-06-19 11:42:[address] [facility] POCT-GLUCOSE METER 2021-06-19 09:51:00 [facility] 1 [facility]IEW PORT[facility] / 2021-06-19 08:55:00 Clayton Spencer [facility] POCT-GLUCOSE METER 2021-06-19 08:14:[address] [facility] POCT-GLUCOSE METER 2021-06-19 06:48:00 Cara [facility] POCT-GLUCOSE METER 2021-06-19 06:14:[address] [facility] POCT-GLUCOSE METER 2021-06-19 04:54:[address] [facility] CBC W/PLT COUNT & AUTO 2021-06-19 04:43:00 Mami Johnson [facility] MAGNESIUM 2021-06-19 04:43:00 Endy Marroquin [facility] BASIC METABOLIC PANEL 2021-06-19 04:43:00 Benita Martinez CH I [facility] PHOSPHORUS 2021-06-19 04:43:00 Lino Moreira [facility] HEPATIC FUNCTION PANEL 2021-06-19 04:43:00 Benita Martinez HI [facility] APTT 2021-06-19 04:43:00 Enid Pichardo [facility] CBC W/PLT COUNT & AUTO 2021-06-19 04:43:00 [facility] BLOOD GAS, ARTERIAL 2021-06-19 04:42:00 Chayo Morgan [facility] POCT-GLUCOSE METER 2021-06-19 03:58:[address] [facility] POCT-GLUCOSE METER 2021-06-19 03:08:[address] [facility] POCT-GLUCOSE METER 2021-06-19 02:11:00 Cara [facility] POCT-GLUCOSE METER 2021-06-19 00:36:[address] [facility] POCT-GLUCOSE METER 2021-06-18 23:30:[address] [facility] BASIC METABOLIC PANEL 2021-06-18 23:16:00 Benita Martinez CH I [facility] POCT-GLUCOSE METER 2021-06-18 22:12:[address] [facility] POCT-GLUCOSE METER 2021-06-18 21:13:[address] [facility] POCT-GLUCOSE METER 2021-06-18 20:14:[address] [facility] HEPATIC FUNCTION PANEL 2021-06-18 16:47:00 Benita Martinez Rita HI [facility] BASIC METABOLIC PANEL 2021-06-18 16:47:00 Benita Martinez CH I [facility] POCT-GLUCOSE METER 2021-06-18 16:14:[address] [facility] POCT-GLUCOSE METER 2021-06-18 12:04:[address] [facility] CBC (HEMOGRAM ONLY) 2021-06-18 10:34:00 Benita Martinez [facility] GLUCOSE 2021-06-18 10:34:00 Benita Martinez [facility] APTT 2021-06-18 10:33:00 Benita Martinez [facility] POCT-GLUCOSE METER 2021-06-18 06:58:[address] [facility] BLOOD CULTURE 2021-06-18 06:52:00 Farrukh Patino [facility] BLOOD GAS, VENOUS 2021-06-18 06:51:00 [facility]OLIC PANEL 2021-06-18 03:43:00 Chayo Morgan [facility] CBC W/PLT COUNT & AUTO 2021-06-18 03:43:00 Mami Johnson [facility] MAGNESIUM 2021-06-18 03:43:00 Endy Marroquin [facility] PHOSPHORUS 2021-06-18 03:43:00 Lillie, [facility] CBC W/PLT COUNT & AUTO 2021-06-18 03:43:00 Mami Johnson [facility] CT ABDOMEN/PELVIS WITHOUT 2021-06-18 02:14:00 Ignacio Calderón [facility] IV CONTRAST [facility] CT BRAIN WITHOUT IV 2021-06-18 02:14:00 Ignacio Calderón [facility] CONTRAST [facility] CT CHEST WITHOUT IV 2021-06-18 02:14:00 Floyd Calderónang [facility] POCT-GLUCOSE METER 2021-06-17 22:56:00 [facility] PO[facility]UCOSE METER 2021-06-17 22:15:00 Cara [facility] ECG 12-LEAD 2021-06-17 22:08:37 Unknown, 7 [facility] ECG 12-LEAD 2021-06-17 22:08:37 Unknown, [address] ECG 12-LEAD 2021-06-17 22:08:16 Unknown, [address] ECG 12-LEAD 2021-06-17 22:06:10 Unknown, [address] ECG 12-LEAD 2021-06-17 22:03:58 Unknown, [address] XR ABDOMEN/KUB 1 VIEW 2021-06-17 18:37:00 [facility]SE [facility]ER 2021-06-17 17:39:00 [facility] BLOOD [facility]AS, ARTERIAL 2021-06-17 17:37:00 Stephane [facility] CBC (HEMOGRAM ONLY) 2021-06-17 17:37:00 aCra [facility] PROTHROMBIN TIME/INR 2021-06-17 17:37:00 Cara [facility] APTT 2021-06-17 17:37:00 Cara [facility] B-TYPE NATRIURETIC FACTOR 2021-06-17 17:37:00 Endy Marroquin [facility] (BNP) [facility] FERRITIN 2021-06-17 17:37:00 Cara [facility] IRON, TIBC, % SAT. (WITHOUT 2021-06-17 17:37:00 Cara [facility] FERRITIN) [facility] LACTATE DEHYDROGENASE (LDH) 2021-06-17 17:37:00 Cara [facility] HIGH SENSITIVITY TROPONIN I 2021-06-17 17:37:00 Endy Marroquin [facility] BASIC METABOLIC PANEL 2021-06-17 15:59:00 Chayo Morgan [facility] MAGNESIUM 2021-06-17 15:59:00 Lino Moreira [facility] PHOSPHORUS 2021-06-17 15:59:00 Lino Moreira [facility] POCT-GLUCOSE METER 2021-06-17 15:57:[address] [facility] BLOOD CULTURE 2021-06-17 13:50:00 [facility] XR CHEST 1 VIEW PORTABLE / 2021-06-17 13:19:00 Lino Moreira [facility] POCT-GLUCOSE METER 2021-06-17 11:18:00 Jed [facility] POCT-GLUCOSE METER 2021-06-17 09:29:00 Jed [facility] POCT-GLUCOSE METER 2021-06-17 08:45:00 Jed [facility] BLOOD GAS, ARTERIAL 2021-06-17 04:39:00 Mami Johnson [facility] POCT-GLUCOSE METER 2021-06-17 04:20:00 [facility] BASIC METABOLIC PANEL 2021-06-17 02:25:00 Chayo Morgan [facility] BLOOD GAS, ARTERIAL 2021-06-17 02:25:00 Chayo Morgan [facility] HEPATIC FUNCTION PANEL 2021-06-17 02:25:00 Mami Johnson [facility] POCT-GLUCOSE METER 2021-06-16 22:24:00 [facility] POCT-GLUCOSE METER 2021-06-16 18:51:00 [facility] POCT-GLUCOSE METER 2021-06-16 12:47:00 Jed Hernandez, [facility] POCT-GLUCOSE METER 2021-06-16 07:59:00 Jed Hernandez, [facility] BLOOD GAS, ARTERIAL 2021-06-16 04:25:00 Chayo Morgan [facility] POCT-GLUCOSE METER 2021-06-16 04:23:[address] [facility] CBC W/PLT COUNT & AUTO 2021-06-16 04:03:00 Greer Burton [facility] CBC W/PLT COUNT & AUTO 2021-06-16 04:03:00 Greer Burton [facility] BASIC METABOLIC PANEL 2021-06-16 00:39:00 Chayo Morgan [facility] BLOOD CULTURE 2021-06-16 00:38:00 Farrukh Patino [facility] POCT-GLUCOSE METER 2021-06-15 21:01:[address] [facility] BLOOD CULTURE 2021-06-15 17:46:00 Farrukh Patino [facility] POCT-GLUCOSE METER 2021-06-15 15:56:[address] [facility] BASIC METABOLIC PANEL 2021-06-15 15:52:00 Chayo Morgan [facility] POCT-GLUCOSE METER 2021-06-15 12:02:00 Greer Burton [facility] VANCOMYCIN LEVEL, TROUGH 2021-06-15 11:55:00 Renae Zuniga [facility] POCT-GLUCOSE METER 2021-06-15 10:08:00 Greer Burton [facility] POCT-GLUCOSE METER 2021-06-15 08:20:00 Greer Burton [facility] BLOOD GAS, ARTERIAL 2021-06-15 07:21:00 Eddie [facility] CBC W/PLT COUNT & AUTO 2021-06-15 07:20:00 [facility] BASIC METABOLIC PANEL 2021-06-15 07:20:00 Eddie [facility] CBC W/PLT COUNT & AUTO 2021-06-15 07:20:00 [facility] BASIC METABOLIC PANEL 2021-06-14 22:37:00 Eddie [facility] POCT-GLUCOSE METER 2021-06-14 21:31:00 [facility] POCT-GLUCOSE METER 2021-06-14 16:42:00 [facility] BASIC METABOLIC PANEL 2021-06-14 16:30:00 Eddie [facility] POCT-GLUCOSE METER 2021-06-14 12:49:00 [facility] APTT 2021-06-14 06:57:[address] [facility] POCT-GLUCOSE METER 2021-06-14 05:14:00 [facility] BLOOD GAS, ARTERIAL 2021-06-14 03:31:00 Wilfrid [facility] CBC W/PLT COUNT & AUTO 2021-06-14 03:30:00 [facility] BASIC METABOLIC PANEL 2021-06-14 03:30:[address] [facility] CBC W/PLT COUNT & AUTO 2021-06-14 03:30:00 [facility] (CELLAVISION MANUAL DIFF) 2021-06-14 03:30:00 [facility] LEGIONELLA ANTIGEN, URINE 2021-06-14 03:30:00 [facility] XR CHEST 1 VIEW PORTABLE / 2021-06-14 02:33:00 Chandni Yuen [facility] BEDSIDE [facility] POCT-GLUCOSE METER 2021-06-13 23:40:00 Greer Burton [facility] BLOOD GAS, ARTERIAL 2021-06-13 22:09:00 Chandni Yuen [facility] BASIC METABOLIC PANEL 2021-06-13 18:07:00 Chandni Yuen [facility] APTT 2021-06-13 18:07:00 Chandni Yuen [facility] C-REACTIVE PROTEIN 2021-06-13 18:07:00 Chandni Yuen [facility] ARTERIAL BLOOD GAS 2021-06-13 17:57:03 Chandni Yuen [facility] POCT-GLUCOSE METER 2021-06-13 17:22:00 Greer Burton [facility] BLOOD GAS, ARTERIAL 2021-06-13 17:04:00 Chandni Yuen [facility] XR CHEST 1 VIEW PORTABLE / 2021-06-13 16:05:[address] [facility] PROCALCITONIN 2021-06-13 13:22:00 Chandni Yuen [facility] BLOOD CULTURE 2021-06-13 13:22:00 Chandni Yuen [facility] BLOOD CULTURE 2021-06-13 13:22:00 Chandni Yuen [facility] IDENTIFICATION PANEL [facility] SPUTUM CULTURE + GRAM STAIN 2021-06-13 13:21:00 Chandni Yuen [facility] POCT-GLUCOSE METER 2021-06-13 11:52:00 Greer Burton [facility] EEG AWAKE AND DROWSY 2021-06-13 08:59:00 Fuad Cai [facility] BLOOD GAS, ARTERIAL 2021-06-13 08:55:00 Chandni Yuen [facility] POCT-GLUCOSE METER 2021-06-13 05:17:00 Josephine [facility] BASIC METABOLIC PANEL 2021-06-13 02:14:00 Hotze, [facility] MAGNESIUM 2021-06-13 02:14:00 Hotze, [facility] PHOSPHORUS 2021-06-13 02:14:00 Hotze, [facility] HEPATIC FUNCTION PANEL 2021-06-13 02:14:00 [place], [facility] CBC W/PLT COUNT & AUTO 2021-06-13 02:13:00 Hotze, [facility] DIFFERENTIAL [facility] BLOOD GAS, VENOUS 2021-06-13 02:13:00 Michellekwayjake [facility] CBC W/PLT COUNT & AUTO 2021-06-13 02:13:00 Hotze, [facility] DIFFERENTIAL [facility] BASIC METABOLIC PANEL 2021-06-12 20:59:00 Chandni Yuen [facility] XR ABDOMEN/KUB 1 VIEW 2021-06-12 18:43:00 Chandni Yuen [facility] PORTABLE [facility] POCT-GLUCOSE METER 2021-06-12 17:15:00 Josephine Greer [facility] BASIC METABOLIC PANEL 2021-06-12 17:00:00 Chandni Yuen [facility] US RENAL COMPLETE 2021-06-12 15:12:00 Chandni Yuen [facility] es [facility] POCT-GLUCOSE METER 2021-06-12 11:19:00 [facility] XR CHEST 1 VIEW PORTABLE / 2021-06-12 09:02:00 Chandni Yuen [facility] BEDSIDE [facility] POCT-GLUCOSE METER 2021-06-12 07:36:00 Josephine [facility] BASIC METABOLIC PANEL 2021-06-12 02:51:00 Hotze, [facility] CBC W/PLT COUNT & AUTO 2021-06-12 02:51:00 Hotze, [facility] S [facility] DIFFERENTIAL [facility] MAGNESIUM 2021-06-12 02:51:00 Hotze, [facility] PHOSPHORUS 2021-06-12 02:51:00 Hotze, [facility] CBC W/PLT COUNT & AUTO 2021-06-12 02:51:00 Hotze, [facility] S t [facility] DIFFERENTIAL [facility] BASIC METABOLIC PANEL 2021-06-11 22:37:00 LillieLino [facility] POCT-GLUCOSE METER 2021-06-11 21:51:00 Maycol Mendes [facility] VITAMIN B12 2021-06-11 19:14:[address] [facility] BASIC METABOLIC PANEL 2021-06-11 19:13:[address] [facility] RPR 2021-06-11 19:13:[address] [facility] URINALYSIS WITH MICROSCOPIC 2021-06-11 18:45:00 Neva Mendes [facility] URINALYSIS MICROSCOPIC 2021-06-11 18:45:00 Maycol Mendes [facility] SODIUM, RANDOM URINE 2021-06-11 18:35:00 Maycol Mendes I [facility] CREATININE, RANDOM URINE 2021-06-11 18:35:00 Maycol Mendes [facility] CHLORIDE, RANDOM URINE 2021-06-11 18:35:00 Maycol Mendes [facility] UREA NITROGEN, RANDOM URINE 2021-06-11 18:35:00 Neva Mendes [facility] POCT-GLUCOSE METER 2021-06-11 17:46:00 Maycol Mendes [facility] 2D ECHO W/ DOPPLER 2021-06-11 17:15:30 Chandni Yuen [facility] (CW/PW/COLOR) [facility] POCT-GLUCOSE METER 2021-06-11 15:36:00 Maycol Mendes [facility] TSH/FREE T4 IF INDICATED 2021-06-11 12:49:[address] [facility] B-TYPE NATRIURETIC FACTOR 2021-06-11 12:49:00 Chandni Yuen [facility] (BNP) [facility] T4, FREE 2021-06-11 12:49:00 Chandni Yuen [facility] XR ABDOMEN/KUB 1 VIEW 2021-06-11 10:29:00 Wilfrid [facility] PORTABLE [facility] XR ABDOMEN/KUB 1 VIEW 2021-06-11 10:27:00 Wilfrid [facility] XR ABDOMEN/KUB 1 VIEW 2021-06-11 10:24:00 Wilfrid [facility] BASIC METABOLIC PANEL 2021-06-11 06:42:00 Hotze, [facility] CBC W/PLT COUNT & AUTO 2021-06-11 06:42:00 Hotze, [facility] S t [facility] DIFFERENTIAL [facility] MAGNESIUM 2021-06-11 06:42:00 Hotze, [facility] PHOSPHORUS 2021-06-11 06:42:00 Hotze, [facility] CBC W/PLT COUNT & AUTO 2021-06-11 06:42:00 Hotze, [facility] S t kes DIFFERENTIAL [facility] POCT-GLUCOSE METER 2021-06-11 06:41:00 Hotze, [facility] AMMONIA 2021-06-11 06:00:00 Christian Gallardo [facility] POCT-GLUCOSE METER 2021-06-11 00:18:00 Hotze, [facility] BLOOD GAS, ARTERIAL 2021-06-10 18:43:00 Estela Cintron [facility] CBC W/PLT COUNT & AUTO 2021-06-10 18:42:00 Estela Cintron [facility] PT/APTT 2021-06-10 18:42:00 Estela Cintron [facility] APTT 2021-06-10 18:42:00 Estela Cintron [facility] FIBRINOGEN 2021-06-10 18:42:00 Estela Cintron [facility] MAGNESIUM 2021-06-10 18:42:00 Estela Cintron [facility] PHOSPHORUS 2021-06-10 18:42:00 Estela Cintron [facility] COMPREHENSIVE METABOLIC 2021-06-10 18:42:00 Estela Cintron [facility] D-DIMER 2021-06-10 18:42:00 Estela Cintron [facility] LACTIC ACID, VENOUS 2021-06-10 18:42:00 Estela Cintron [facility] C-REACTIVE PROTEIN 2021-06-10 18:42:00 Estela Cintron [facility] CBC W/PLT COUNT & AUTO 2021-06-10 18:42:00 Estela Cintron [facility] XR CHEST 1 VIEW PORTABLE / 2021-06-10 17:38:00 Estela Cintron [facility] BEDSIDE [facility] MEDICATION CORRESPONDENCE 2021-03-03 05:01:00 Doctor Cody, [facility] AUTHORIZATION TO RELEASE 2021-02-23 05:01:00 Doctor Xochiltssigned, [facility] TO [facility] Plan of Care Planned Activity Planned Date Details Comments Source Future Scheduled 2022-06-18 Screening for malignant [facility] Test 00:00:00 neoplasm of lung [facility] [address] (procedure) [code = 494578096] Future Scheduled 2022-06-18 Screening for malignant [facility] Test 00:00:00 neoplasm of lung [facility] [address] (procedure) [code = [id number]] Future Scheduled 2022-06-[address] [facility] 00:00:00 measurement (procedure) [facility] [code = 11551322] Future Scheduled 2022-06-[address] [facility] 00:00:00 measurement (procedure) [facility] [code = [id number]] Future Scheduled 2022-05-[address] [facility] 00:[facility]:00 measurement (procedure) [facility] [code = [id number]] Future Scheduled 2018-07-[address] [facility] 00:00:00 measurement (procedure) [facility] [code = 13858383] Future Scheduled 2014-11-[address] [...] screening Medical C enter (procedure) [code = 814512118] Future Scheduled [address] [facility] Test 00:00:00 aneurysm screening Medical C enter (procedure) [code = 817872445] Future Scheduled 2013 PNEUMOCOCCAL 65+ YRS ([address] [facility] Test 00:00:00 of 1 - [id number] PCV13) [code = PNEUMOCOCCAL 65+ YRS (1 of 1 - [id number] PCV13)] Future Scheduled 2013 PNEUMOCOCCAL 65+ YRS ([address] [facility] Test 00:00:00 of 1 - [id number]_[facility] PCV13) [code = PNEUMOCOCCAL 65+ YRS (1 of 1 - [id number] PCV13)] Future Scheduled 1998 SHINGLES VACCINES (1 of [...] Counseling and Screening (12+)] Future Scheduled [address] [...] (1)] Future Scheduled 1958 DIABETIC EYE EXAM [code [facility] 00:00:00 = DIABETIC EYE EXAM] Medical Center Future Scheduled [address] [facility] examination [facility] Center (regime/therapy) [code = [id number]] Future Scheduled 1958 Urine screening for [facility] 00:00:00 protein (procedure) Medical Center [code = 028222081] Future Scheduled 1958 DIABETIC EYE EXAM [code [facility] 00:00:00 = DIABETIC EYE EXAM] Medical Center Future Scheduled [address] [facility] 00:[facility]:00 examination [facility] Center (regime/therapy) [code = 282503619] Future Scheduled 1958 Urine screening for [facility] Test 00:00:00 protein (procedure) Medical Center [code = 637371455] Future Scheduled 1958 DIABETIC EYE EXAM [code [facility] 00:00:00 = DIABETIC EYE EXAM] Medical Center Future Scheduled [address] [facility] es Test 00:00:00 examination Medical Center (regime/therapy) [code = 656733800] Future Scheduled 1958 Urine screening for [facility] Test 00:00:00 protein (procedure) [facility] Center [code = 921868637] Future Scheduled 1958 DIABETIC EYE EXAM [code [facility] Test 00:00:00 = DIABETIC EYE EXAM] [facility] Center Future Scheduled [address] [facility] (regime/therapy) [code = 168777090] Future Scheduled 1958 Urine screening for [facility] Test 00:00:00 protein (procedure) [facility] Center [code = 062740448] Future Scheduled 1954 PNEUMOCOCCAL 65+ YRS (1 [...] [facility] Test 00:00:00 [code = CT Colonography [facility] (combo)] Future Scheduled 1948 Screening for malignant [facility] Test 00:00:00 neoplasm of colon Medical Ce nter (procedure) [code = 647156125] Future Scheduled 1948 Screening for malignant [facility] Test 00:00:00 neoplasm of colon Medical Ce nter (procedure) [code = 969119801] Future Scheduled 1948 Screening for malignant [facility] Test 00:00:00 neoplasm of colon Medical Ce nter (procedure) [code = 507508165] Future Scheduled 1948 Screening for malignant [facility] Test 00:00:00 neoplasm of colon Medical Ce nter (procedure) [code = 556501222] Future Scheduled 1948 Sigmoidoscopy [facility]code = [facility] r Future Scheduled 1948 CT Colonography (combo) [facility] Test 00:00:00 [code = CT Colonography [facility] (combo)] Future Scheduled 1948 Screening for malignant [facility] Test 00:00:00 neoplasm of colon Medical Ce nter (procedure) [code = 270595804] Future Scheduled 1948 Screening for malignant [facility] Test 00:00:00 neoplasm of colon Medical Ce nter (procedure) [code = 353713117] Future Scheduled 1948 Screening for malignant [facility] Test 00:00:00 neoplasm of colon Medical Ce nter (procedure) [code = 124440342] Future Scheduled 1948 Screening for malignant [facility] Test 00:00:00 neoplasm of colon Medical Ce nter (procedure) [code = 816945318] Future Scheduled 1948 S[facility]oidoscopy [facility] Cent[facility] r Future Scheduled 1948 Screening for malignant [facility] Test 00:00:00 neoplasm of colon Medical Ce nter (procedure) [code = 482177267] Future Scheduled 1948 Screening for malignant [facility] Test 00:00:00 neoplasm of colon Medical Ce nter (procedure) [code = 623888493] Encounters Start End Encounter Admission Attending Care Care Encounter Source Date/Time Date/Time Type Type Clinicians Facility Department ID 2021-11-01 Outpatient 3 [id number] [place] [id number] [facility] 08:18:[facility] [place] 2021-10-31 Outpatient 3 [id number] [facility] REF [id number] [facility] 12:07:37 0628 [facility] [place] 2021-10-25 Outpatient 3 [id number] [facility] CRD [facility] 09:56:20 0622 [facility] [place] 2021-10-24 Outpatient 3 [id number] E[facility] REF [id number] [facility] 12:05:30 0621 [facility] [place] 2021-08-21 Outpatient 3 [id number] [place] [id number] [facility] 11:50:48 0418 [facility] [place] 2021-08-19 Outpatient 3 [id number] ENC[facility] REF [id number] [facility] 15:13:03 0416 [facility] [place] 2021-06-01 Outpatient 3 [id number] ENCTY REF [id number] [facility] 13:36:52 1229 2021-06-01 Outpatient 3 [id number] EN[facility] REF [id number] [facility] 13:36:02 1228 2021-05-04 Inpatient 3 [place] [id number] [facility] 10:23:00 AMBER 1230 2022-02-13 2022-02-13 Outpatient R JAQUELIN [facility] [id number] Univers 11:00:00 11:00:00 KEVIN ity of [facility] 2021-12-16 2021-12-16 Orders Doctor WILMAR 1.2.840.114 [id number] Univers 00:00:00 00:00:00 Only Unassigned, JOYCE 350.1.13.10 ity of [place] [facility] 4.2.7.2.686 Jameel as [phone] [facility] [address] 2021-12-05 2021-12-12 Hospital UR Quinn French [facility] [id number] [facility] 18:39:00 18:53:00 Encounter Gonzalez Tejeda [facility] 2021-12-05 2021-12-12 Inpatient UR NIKHIL, [facility] Cardiology [id number] [facility] 18:39:00 18:53:00 GONZALEZ 2021-12-07 2021-12-07 Surgery Micaela Bingham [facility] [id number] 18:00:00 19:30:00 [facility] 2021-12-06 2021-12-06 Travel [facility] [id number] [facility] 00:[facility] 00:00:00 [facility] 2021-10-30 2021-10-30 Transition GRIS León 1.2.840.114 [id number] Univers 00:00:00 00:00:00 of Care Clifford WILSON 350.1.13.10 [place] [phone] [facility] [address] 2021-10-21 2021-10-27 Outpatient X TG [facility] BRENDEN [id number] Univers 10:42:00 13:31:00 WERO ity [facility] 2021-10-21 2021-10-27 Emergency Kavin Locke [facility] 1.2.840 .114 [id number] Univers 10:42:00 13:31:00 Jordon Buckley 350.1.13.10 ity of [place] 4.2.7.2.686 [facility] [id number] [facility] 081 [address] 2021-08-22 2021-09-05 Inpatient EM Richard, HCACL INTE.02 [id number] [facility] 07:57:00 11:53:00 Benedicto 95 [facility] 2021-08-29 2021-08-29 Outpatient Physician, HCACL HCACL G001 [id number] [facility] 06:03:00 06:03:00 No 56 [facility] 2021-08-24 2021-08-24 Outpatient Richard, HCAMN MLAB [id number] [facility] 12:02:00 12:02:00 Benedicto 48 [facility] 2021-08-08 2021-08-08 [facility] 1.2.840.114 [id number] Univers 00:00:00 00:00:[address] [facility] 4.2.7.2.686 [facility] [phone] [facility] 0[address] [facility] 2021-06-10 2021-07-18 [facility] José Antonio Albright [facility] [id number] 17:13:00 02:00:00 [facility] End[facility] Marroquin Fatima Idrees Tran, Tuan Quoc Yoon, Meredith Pierce V. 2021-06-10 2021-07-18 Inpatient UR BRITTON, [facility] Cardiology [id number] SLE 17:13:00 02:00:00 MEREDITH 2021-06-25 2021-06-25 Outside [facility], [facility] [id number] 00:00:00 00:00:00 Orders [facility] 2021-06-17 2021-06-17 Orders [facility] [id number] 00:00:00 00:00:00 Only [facility] 2021-06-14 2021-06-14 [facility] [id number] Univers 13:30:00 13:30:00 SENDIL ity [facility] 2021-05-31 2021-05-31 Telephone [facility] 1.2.177.110 [id number] Univers 00:00:00 00:00:00 Sendil Letty RANGEL 350.1.13.10 it[place] [phone] Nm dic[address] 2021-05-12 2021-05-12 [facility] [id number] Univers 14:00:00 14:00:00 SENDIL ity [facility] 2021-03-23 2021-03-23 Telephone [facility] [id number] [id number] Univers 00:00:00 00:00:00 Sendil Letty RANGEL 350.1.13.10 [place] [phone] [address] 2021-03-03 2021-03-03 Orders Doctor WILMAR 1.2.840.114 [id number] Univers 00:00:00 00:00:00 Only Unassigned, JOYCE 350.1.13.10 ity of [place] [facility] 4.2.7.2.686 Jameel as [phone] [address] 2021-02-23 2021-02-23 Outpatient R [facility] [id number] Univers 13:00:00 13:33:16 SENDIL ity [facility] 2021-02-23 2021-02-23 Office [facility] 1.2.840.114 [id number] Univers 12:49:37 13:33:16 Visit Sendlamin Rangel 350.1.13.10 it[place] of [place] [phone] Nm dicmt nal [address] [place] [address] 2021-02-23 2021-02-23 Orders Doctor WILMAR 1.2.840.114 [id number] Univers 00:00:00 00:00:00 Only Unassigned, JOYCE 350.1.13.10 ity of [place] [facility] 4.2.7.2.686 Jameel as [phone] [facility] [address] 2021-02-03 2021-02-03 Telephone [facility] [id number] [id number] Univers 00:00:00 00:00:00 Sendil IhsanKhadarAlejoKhadar [place] 350.1.13.10 ity of [place] [phone] Nm dical nal 059 [facility] 2021-02-03 2021-02-03 Telephone [facility] 1.2.458.533 [id number] Univers 00:00:00 00:00:00 Sendlamin IhsanKhadarDebbie Claire 350.1.13.10 ity of [place] [phone] Nm dicmt nal 9 [facility] 2021-01-31 2021-01-31 Outpatient R JAQUELIN [facility] [id number] Univers 11:40:00 16:13:45 KEVIN ity of [facility] 2021-01-31 2021-01-31 Office [facility] 1.2.840.114 [id number] Univers 11:09:12 11:29:12 Visit Kevin Claire 350.1.13.10 i ty of [place] [phone] Nm dicmt nal 9 [facility] 2021-01-30 2021-01-30 [facility] 1.2.840.114 [id number] Univers 13:53:16 23:59:00 Encounter [facility]il [facility] 350.1.13.10 it[place] [phone] [facility] [address] 2021-01-30 2021[facility]-30 [facility]114 [id number] Univers 13:52:17 13:52:17 Encounter Sendil [facility] 350.1.13.10 it[place] [phone] [facility] [address] 2021-01-30 2021-01-30 Outpatient R SHERI [facility] [id number] Univers 13:52:17 13:52:17 SENDIL ity [facility] 2021-01-26 2021-01-26 [facility], [facility] 1.2.840.114 [id number] Univers 10:30:00 23:59:00 Encounter Sendil [facility] 350.1.13.10 it[place] [phone] [facility] [address] 2021-01-26 2021-01-26 [facility] 1.2.840[facility]114 [id number] Univers 09:31:39 09:34:00 Encounter Sendil [facility] 350.1.13.10 it[place] [id number] [facility] [address] 2021-01-26 2021-01-26 [facility] 1.2.840.114 [id number] Univers 09:30:00 09:30:00 Encounter Sendil [facility] 350.1.13.10 ity of [place] [phone] [place] 504515 [place] 2021-01-25 2021-01-25 Outpatient SHERI [facility] [id number] Univers 00:00:00 00:00:00 SENDIL ity of [facility] 2021-01-24 2021-01-24 Orders Doctor WILMAR 1.2.840.114 [id number] Univers 00:00:00 00:00:00 Only Unassigned, JOYCE 350.1.13.10 ity of [place] [facility]ITAL 4.2.7.2.686 Jameel as [phone] [place] [address] [address] 2021-01-13 2021-01-13 Telephone [facility] 1.2.749.974 [id number] Univers 00:00:00 00:00:00 Sendil Letty Rangel 350.1.13.10 ity of [place] [phone] Nm dical nal 059 [facility] 2021-01-12 2021-01-12 Slag Wheeler 2, Adc Lab [facility] 1.2.840.114 [id number] Univers 14:30:37 14:45:37 Visit Cailin Almonte 350.1.13. 10 ity of [place] [phone] Nm dical nal 353 [facility] 2021-01-12 2021-01-12 Outpatient R SHERI [facility] [id number] Univers 13:30:00 14:26:07 SENDIL latanya [facility] 2021-01-12 2021-01-12 Office [facility] 1.2.840.114 [id number] Univers 13:17:33 14:26:07 Visit Cailin Rangel 350.1.13.10 ity [facility] [place] [phone] Nm dical nal 059 [facility] 2020-12-15 2020-12-15 Outpatient R SHERI [facility] [id number] Univers 09:00:00 09:50:59 SENDIL [facility] 2020-12-15 2020-12-15 Office [facility] 1.2.840.114 [id number] 08:50:21 09:50:59 Visit Cailin Rangel 350.1.13.10 [place] 4.2.7.2.686 Professio [phone] [address] 2020-08-16 2020-08-16 Inpatient JOHN Monreal DARRINWU HCAWU [id number] [facility] 07:35:34 07:35:34 Nioti 61 [facility] 2020-08-11 2020-08-11 Emergency X RAMIREZ [facility] ERT [id number] Univers 14:46:00 22:30:00 PARESH pelaez [facility] 2007-02-17 2007-02-18 Outpatient [facility] [id number] Univers 00:00:00 08:13:49 2 ity of [facility] Results Test Description Test Time Test Comments Results Result Comments Source POC-Glucose meter 2021-12-12 12:51:41 Test Item Value Reference Range Interpretation Comme nts POC-Glucose Meter (test code = 129 mg/dL 70-110 H : TESTED AT [facility] [address]) [place] 549738: Plant Accountant/Techni salma ID = [id number] for Dianna Bustillo Lab Interpretation (test code = Abnormal 53595-0) [facility] [id number] 12:51:41 Test Item Value Reference Range Interpretation Comments POC-Glucose Meter (test 129 mg/dL 70-110 H : TE STED AT [facility] code = 1538) [address] [place] 890558: Plant Accountant/Techni salma ID = [id number] for Dianna Bustillo Lab Interpretation (test Abnormal code = 81000-4) [facility]SE [id number] 12:51:41 Test Item Value Reference Range Interpretation Comments POC-GLUCOSE METER 129 mg/dL 70-110 H : TESTED A T [facility] [address] (BEAKER) (test code [address] [facility], = 1538) [place] 344208: Plant Accountant/Techni salma ID = [id number] for Dianna Bustillo POCT-GLUCOSE [id number] 06:18:06 Test Item Value Reference Range Interpretation Comments POC-GLUCOSE METER 107 mg/dL 70-110 : TESTED A T [facility] [address] (BEAKER) (test code [address] [facility], = 1538) [place] 344208: Plant Accountant/Techni salma ID = [id number] for John h, Barb POCT-GLUCOSE [id number] 19:54:21 Test Item Value Reference Range Interpretation Comments POC-GLUCOSE METER 154 mg/dL 70-110 H : TESTED A T [facility] [address] (BEAKER) (test code [address] [facility], = 1538) [place] [address] 478: Plant Accountant/Techni salma ID = [id number] for John h, Barb POCT-GLUCOSE [id number] 17:31:21 Test Item Value Reference Range Interpretation Comments POC-GLUCOSE METER 126 mg/dL 70-110 H : TESTED A T [facility] [address] (BEAKER) ([facility] = 1538) [place] 344208: Plant Accountant/Techni salma ID = [id number] for Buff ord, Kirsty POCT-GLUCOSE [id number] 12:17:07 Test Item Value Reference Range Interpretation Comments POC-GLUCOSE METER 110 mg/dL 70-110 : TESTED A T [facility] [address] (BEAKER) (test code [address] [facility], = 1538) [place] 344208: Plant Accountant/Techni salma ID = [id number] for Buff ord, Kirsty POCT-GLUCOSE [id number] 09:04:29 Test Item Value Reference Range Interpretation Comments POC-GLUCOSE METER 109 mg/dL 70-110 : TESTED A T [facility] [address] (BEAKER) (test code [facility], = 1538) [place] [address]: Plant Accountant/Techni salma ID = [id number] for Domo Rhodes POCT-GLUCOSE [id number] 06:22:45 Test Item Value Reference Range Interpretation Comments POC-GLUCOSE METER 108 mg/dL 70-110 : Notified RN/MD: TESTED ([facility]) (test code AT [facility] 131[facility] POINT = 1538) [place] [address]: Plant Accountant/Techni salma ID = [id number] for Cate Manjulaa POCT-GLUCOSE [id number] 20:59:26 Test Item Value Reference Range Interpretation Comments POC-GLUCOSE METER 161 mg/dL 70-110 H : Notified RN/MD: TESTED ([facility]) (test code AT [facility] 131[facility] POINT = 1538) [place] [address]: Plant Accountant/Techni salma ID = [id number] for Bobs , Arkeishia POCT-GLUCOSE [id number] 17:58:29 Test Item Value Reference Range Interpretation Comments POC-GLUCOSE METER 135 mg/dL 70-110 H : Notified RN/MD: TESTED ([facility]) (test code AT [facility] 131[facility] POINT = 1538) [place] [address]: Plant Accountant/Techni salma ID = [id number] for Zakia Rodrigues POCT-GLUCOSE [id number] 11:27:34 Test Item Value Reference Range Interpretation Comments POC-GLUCOSE METER 140 mg/dL 70-110 H : Notified RN/MD: TESTED (BEAKER) (test code AT [facility] [address] = 1538) [facility] [address]: Plant Accountant/Techni salma ID = [id number] for Israel Celaya [id number] 06:50:40 Test Item Value Reference Range Interpretation Comments MAGNESIUM (BEAKER) (test code = 2.0 mg/dL 1.5-3.0 627) Plant Accountant ID - [id number] ID - qhecjsrsh831Wstftbeo ID - xpwdsnmyb101Jhzesmoq ID - [id number] METABOLIC [id number] 06:49:17 Test Item Value Reference Range Interpretation [...] De scription 1092) sq m Result G1 Andre l or high >=90 G2 Mildly decreased [...] not appl icable for dialysis patien ts Plant Accountant ID - [id number] ID - tntscphts521Cuuumyfy ID - zemzhrylm724Kpjfgmir ID - jgurljykg829Sxukfept ID - btsqpyuda878Flojocvu ID - jocukcwni418Xlcckjpx ID - iexhtytpq822Gmjoerds ID - fwcxtrzlm142Yxxcfquw ID - [id number] 06:47:56 Test Item Value Reference Range Interpretation Comments PHOSPHORUS (BEAKER) (test code = 3.2 mg/dL 2.5-4.5 604) Plant Accountant ID - [id number] W/PLT COUNT & AUTO [id number] 06:30:51 Test Item Value Reference Range Interpretation [...] PERCENT (BEAKER) (test code = 2801) POCT-GLUCOSE [id number] 06:11:40 Test Item Value Reference Range Interpretation Comments POC-GLUCOSE METER 110 mg/dL 70-110 : TESTED A [facility] 1317 ([facility]) (test code [facility], = 1538) [place] 344208: Plant Accountant/Techni salma ID = [id number] for Zulema Estevez POCT-GLUCOSE [id number] 21:22:05 Test Item Value Reference Range Interpretation Comments POC-GLUCOSE METER 156 mg/dL 70-110 H : TESTED A [facility] 1317 ([facility]) (test code [facility], = 1538) [place] 344208: Plant Accountant/Techni salma ID = [id number] for Omar priest Bette POCT-GLUCOSE [id number] 17:40:53 Test Item Value Reference Range Interpretation Comments POC-GLUCOSE METER 128 mg/dL 70-110 H : Notified RN/MD: TESTED ([facility]) (test code AT [facility] [address] = 1538) [place] 549738: Plant Accountant/Techni salma ID = [id number] for Lauroihsan Israel hilton POCT-GLUCOSE [id number] 11:26:28 Test Item Value Reference Range Interpretation Comments POC-GLUCOSE METER 123 mg/dL 70-110 H : Notified RN/MD: TESTED ([facility]) (test code AT [facility] [address] = 1538) [facility] [place] [address]: Plant Accountant/Techni salma ID = [id number] for Israel Celaya BASIC METABOLIC [id number] 05:01:38 Test Item Value Reference Range Interpretation [...] De scription 1092) sq m Result G1 Andre l or high >=90 G2 Mildly decreased [...] not appl icable for dialysis patien ts Plant Accountant ID - [id number] ID - [id number] ID - IHVQHT206Mpyswdem ID - MRRZED556RedwlrosXB - WRYOVT940Brrgtopk ID - [id number] ID - QJQYRT798Dsrxvhpa ID - BMQXUR232Hjztqqxn ID - GSTDXI838Dhqpzpcz ID - [id number] 04:45:54 Test Item Value Reference Range Interpretation Comments MAGNESIUM (BEAKER) (test code = 2.0 mg/dL 1.5-3.0 627) Plant Accountant ID - [id number] ID - [id number] ID - [id number] ID - [id number] 04:43:12 Test Item Value Reference Range Interpretation Comments PHOSPHORUS (BEAKER) (test code = 2.5 mg/dL 2.5-4.5 604) Plant Accountant ID - [id number] W/PLT COUNT & AUTO [id number] 04:24:07 Test Item Value Reference Range Interpretation [...] PERCENT (BEAKER) (test code = 2801) POCT-GLUCOSE [id number] 23:43:13 Test Item Value Reference Range Interpretation Comments POC-GLUCOSE METER 108 mg/dL 70-110 : TESTED A T [facility] [address] (BEAKER) (test code [address], = 1538) [place] [address]: Plant Accountant/Techni salma ID = [id number] for Aanu siem, felicity POCT-GLUCOSE [id number] 20:56:29 Test Item Value Reference Range Interpretation Comments POC-GLUCOSE METER 126 mg/dL 70-110 H : TESTED A T [facility] [address] (BEAKER) (test code [address], = 1538) [place] [address]208: Plant Accountant/Techni salma ID = [id number] for Aanu siem, felicity CT, BRAIN, WITHOUT [id number] 19:41:00Fall with impact on forehead [facility] 1950 [...] is recommended for further characterization. Signed: Luke Pfeiffer Verified Date/Time: 12/08/2021 19:41:33 POCT-GLUCOSE [id number] 12:22:31 Test Item Value Reference Range Interpretation Comments POC-GLUCOSE METER 126 mg/dL 70-110 H : TESTED A T [facility] [address] (BEAKER) (test code [address], = 1538) [facility] [address]: Plant Accountant/Techni salma ID = [id number] for Ivanna Chin [id number] 04:42:35 Test Item Value Reference Range Interpretation Comments MAGNESIUM (BEAKER) 2.2 mg/dL 1.5-3.0 Specimen slightly (test code = 627) hemolyzed Plant Accountant ID - LITOOperator ID - LITOOperator ID - LITOOperator ID - LITOBASIC METABOLIC [id number] 04:41:15 Test Item Value Reference Range Interpretation [...] De scription 1092) sq m Result G1 Andre l or high >=90 G2 Mildly decreased 60-89 G3a Mildl y to moderately 45-5 9 G3b Moderately to s everely 30-44 G4 Severl y decreased 15-29 G5 Kidne y failure <15Reported eGF R is based on the CKD-EPI 2020 equation that d oes not use a race coefficientEsti mated GFR is not as accur ate as Creatinine Caitlin samuel in predicting glom erular filtration rate . Estimated GFR is not appl icable for dialysis patien ts Plant Accountant ID - LITOOperator ID - LITOOperator ID - LITOOperator ID - LITOOperator ID - LITOOperator ID - LITOOperator ID - LITOOperator ID - LITOOperator ID - [id number] 04:39:51 Test Item Value Reference Range Interpretation Comments PHOSPHORUS (BEAKER) 2.8 mg/dL 2.5-4.5 Specimen slightly (test code = 604) hemolyzed Plant Accountant ID - LITOCBC W/PLT COUNT & AUTO [id number] 04:28:28 Test Item Value Reference Range Interpretation [...] = 2801) RAD, CHEST, 1 VIEW, NON [id number] 00:53:00Reason for exam:->post pacemakerShould this be performed at the bedside?->Yes [facility] : 1950 [...] request of the patient's nurse and the radiology special procedure tech. Within this limitation: There is been interval [...] be obtained when clinically feasible. Signed: Carlo [facility] Verified Date/Time: 2021 00:53:45 POCT-GLUCOSE [id number] 17:00:46 Test Item Value Reference Range Interpretation Comments POC-GLUCOSE METER 87 mg/dL 70-110 : TESTED A T [facility] 1317 ([facility]) (test code = [address], 1538) [facility] 77 478: Plant Accountant/Techni salma ID = [id number] for Peggy Gutierrez RAD, CHEST, 1 VIEW, NON [id number] 09:47:00Reason for exam:->pulm edemaShould this be performed at the bedside?->Yes [facility] : 1950 Sex: MFINAL REPORT Chest AP portable semierect Comparison exam: 12/05/2021 History provided: Pulmonary edema Heart size magnified by projection. Pulmonary vascular congestion appears improved. No areas of consolidation or atelectasis. Signed: Rufino Cintron MDReport Verified Date/Time: 12/07/2021 09:47:02 Reading Location: [facility] Radiology Reading Room BASIC METABOLIC [id number] 05:44:43 Test Item Value Reference Range Interpretation [...] De scription 1092) sq m Result G1 Andre l or high >=90 G2 Mildly decreased 60-89 G3a Mild ly to moderately 45-5 9 G3b Moderately to [...] not appl icable for dialysis patien ts Plant Accountant ID - [id number] ID - [id number] ID - [id number] ID - [id number] ID - [id number] ID - [id number] ID - [id number] ID - [id number] ID - [id number] ID - [id number]/FREE T4 IF [id number] 05:39:10 Test Item Value Reference Range Interpretation Comments THYROID STIMULATING HORMONE 0.510 uIU/mL 0.350-5.500 (BEAKER) (test code = 772) Plant Accountant ID - [id number] 05:23:22 Test Item Value Reference Range Interpretation Comments MAGNESIUM (BEAKER) (test code = 2.0 mg/dL 1.5-3.0 627) Plant Accountant ID - [id number] ID - [id number] ID - [id number] ID - [id number] CBC W/PLT COUNT & AUTO [id number] 05:22:55 Test Item Value Reference Range Interpretation [...] 0-0 PERCENT (BEAKER) (test code = 2801) [id number] 05:20:20 Test Item Value Reference Range Interpretation Comments PHOSPHORUS (BEAKER) (test code = 3.2 mg/dL 2.5-4.5 604) Plant Accountant ID - [id number] 05:05:31 Test Item Value Reference Range Interpretation Comments HEMOGLOBIN A1C (BEAKER) (test code = 4.9 % 4.3-6.1 368) Plant Accountant ID - [id number] 2D [id number] 22:20:22Ejection FractionSLEH ECHO HEARTLAB [facility]CK[facility] [id number] 22:20:22Ejection FractionSLEH ECHO HEARTLAB MKCKESSON [facility] [id number] 17:28:22 Test Item Value Reference Range Interpretation Comments POC-GLUCOSE METER 139 mg/dL 70-110 H : TESTED A T [facility] [address] (BEAKER) (test code [address], = 1538) [facility] 77 478: Plant Accountant/Techni salma ID = [id number] for Geeta Funes POCT-GLUCOSE [id number] 12:03:02 Test Item Value Reference Range Interpretation Comments POC-GLUCOSE METER 98 mg/dL 70-110 : TESTED A T [address] (BEAKER) (test code = [address], 1538) [facility] 77 478: Plant Accountant/Techni salma ID = [id number] for Lawrence insGeeta [id number] 04:40:51 Test Item Value Reference Range Interpretation Comments MAGNESIUM (BEAKER) (test code = 2.2 mg/dL 1.5-3.0 627) Plant Accountant ID - LITOOperator ID - LITOOperator ID - LITOOperator ID - LITOBASIC METABOLIC [id number] 04:39:33 Test Item Value Reference Range Interpretation [...] De scription 1092) sq m Result G1 Norm al or high >=90 G2 Mildly decreased 60-89 G3a Mildl y to moderately 45-5 9 G3b Moderately to s everely 30-44 G4 Severl y decreased 15-29 G5 Kidne y failure <15Reported eGF R is based on the CKD-EPI 2020 equation that d oes not use a race coefficientEsti mated GFR is not as accur ate as Creatinine Caitlin samuel in predicting glom erular filtration rate . Estimated GFR is not appl icable for dialysis patien ts Plant Accountant ID - LITOOperator ID - LITOOperator ID - LITOOperator ID - LITOOperator ID - LITOOperator ID - LITOOperator ID - LITOOperator ID - LITOOperator ID - LITOCBC W/PLT COUNT & AUTO [id number] 04:30:42 Test Item Value Reference Range Interpretation [...] = 2801) RAD, CHEST, 1 VIEW, NON [id number] 03:20:00Reason for exam:->eval for pulm edemaShould this be performed at the bedside?->Yes [facility] 1950 [...] pneumothorax or acute bony abnormality. Signed:Carlo Sarmiento MDRort Verified Date/Time: 12/06/2021 03:20:17 HEMOGLOBIN AND [id number] 23:44:48 Test Item Value Reference Range Interpretation Comments HEMOGLOBIN (BEAKER) (test code = 10.9 GM/DL 13.0-16.8 L 410) HEMATOCRIT (BEAKER) (test code = 34.1 % 36.0-50.0 L 411) POCT-GLUCOSE [id number] 21:36:30 Test Item Value Reference Range Interpretation Comments POC-GLUCOSE METER 131 mg/dL 70-110 H : TESTED A T [facility] [address] (BEAKER) (test code [address], = 1538) [facility] 77 478: Plant Accountant/Techni salma ID = [id number] for Rosanne inAbril HEPATIC FUNCTION [id number] 21:20:30 Test Item Value Reference Range Interpretation [...] (test code = 14 U/L 5-50 347) Plant Accountant ID - [id number] ID - [id number] ID - [id number] ID - [id number] ID - [id number] ID - [id number] ID - [id number] COMPREHENSIVE METABOLIC [id number] 21:20:30 Test Item Value Reference Range Interpretation [...] St age Description sq m Result G1 Andre l or high >=90 G2 Mildly decreased [...] not appl icable for dialysis patien ts Plant Accountant ID - [id number] ID - [id number] ID - [id number] ID - [id number] ID - [id number] ID - [id number] ID - [id number] ID - [id number] ID - [id number] ID - [id number] 21:20:09 Test Item Value Reference Range Interpretation Comments MAGNESIUM (BEAKER) (test code = 1.7 mg/dL 1.5-3.0 627) Plant Accountant ID - [id number] ID - [id number] ID - [id number] ID - [id number] 21:16:50 Test Item Value Reference Range Interpretation Comments PHOSPHORUS (BEAKER) (test code = 2.6 mg/dL 2.5-4.5 604) Plant Accountant ID - [id number] TIME/[id number] 21:13:09 Test Item Value Reference Range Interpretation Comments PROTIME (BEAKER) 12.3 seconds 9.3-12.0 H Final Infor mation (test code = 759) (Auto Outp ut) INR (BEAKER) (test 1.13 See_Comment Final Inf ormation code = 370) (Auto Output) [Automated mess age] The system [employer] generated this result transmitted ref erence range: [...] Interpretation Comments POCT GLU (test code = 4034134987) 114 mg/dL 70-110 H Lab Interpretation (test code = Abnormal 16687-2) [facility] GLUCOSE (AUTOMATED)2021-10-25 22:05:20 Test Item Value Reference Range Interpretation Comments POCT GLU (test code = 6871914221) 74 mg/dL 70-110 Lab Interpretation (test code = Normal 65314-7) [facility] GLUCOSE (AUTOMATED)2021-10-25 16:49:56 Test Item Value Reference Range Interpretation Comments POCT GLU (test code = 3984661906) 117 mg/dL 70-110 H Lab Interpretation (test code = Abnormal 31192-8) [facility] GLUCOSE (AUTOMATED)2021-10-25 12:52:42 Test Item Value Reference Range Interpretation Comments POCT GLU (test code = 6388260319) 115 mg/dL 70-110 H Lab Interpretation (test code = Abnormal 35408-8) [facility] GLUCOSE (AUTOMATED)2021-10-25 12:52:37 Test Item Value Reference Range Interpretation Comments POCT GLU (test code = 2751641835) 127 mg/dL 70-110 H Lab Interpretation (test code = Abnormal 01657-6) [facility] [id number] 11:02:33 Test Item Value Reference Range Interpretation Comments NT-proBNP (test code 2810 pg/mL See_Comment H [Autom ated = 3345312164) message] The system which generated this result transmitted reference range : <=125. The reference range was not used to interpret this result as normal/abnormal . BANDAR (test code = BANDAR) Biotin has been reported to cause a negative bias, interpret results relative to patient's use of biotin. Lab Interpretation Abnormal (test code = 95726-0) [facility]OL[facility] PAN[facility] (NA, K, CL, CO2, GLUCOSE, BUN, CREATININE, CA)2021-10-25 10:55:12 Test Item Value Reference Range Interpretation Comments NA (test code = 141 mmol/L 135-145 3781186131) K (test code = 4.4 mmol/L 3.5-5.0 7913675428) CL (test code = 103 mmol/L 98-108 6715101455) CO2 TOTAL (test code = 27 mmol/L 23-31 4773172681) AGAP (test code = 2-16 3550822042) BUN (test code = 27 mg/dL 7-23 H 5797843087) GLUCOSE (test code = 123 mg/dL 70-110 H 7503932201) CREATININE (test code = 1.21 mg/dL 0.60-1.25 5016327499) CALCIUM (test code = 10.1 mg/dL 8.6-10.6 6829677346) eGFR (test code = mL/min/1.73m2 8541945322) BANDAR (test code = BANDAR) Association of [...] tests). Lab Interpretation Abnormal (test code = 00473-4) [facility] WITH [id number] 09:24:19 Test Item Value Reference Range Interpretation [...] (test code = 54.7 fL 38.5-51.6 H 32357-9) RDW-CV (test code = 18.7 % 12.1-15.4 H 788-0) PLT (test code = See_Comment [Automated 777-3) message] The sy stem which generated this result transmitted reference range : 150 - 328 10*3/ ?L. The reference r cheri was not used to interpret this result as normal/abnormal . MPV (test code = 9.7 fL 9.8-13.0 L 23585-9) NRBC/100 WBC (test See_Comment [Automat ed code = 9888751267) message] The system which generated this result transmitted reference range : 0.0 - 10.0 /100 WBCs. The refer ence range was not u sed to interpret th is result as normal/abnormal . NRBC x10^3 (test code <0.01 See_Comment [Auto mated = 6677126782) message] The s ystem which generated this result transmitted reference range : 10*3/?L. The reference range was not used to interpret this result as normal/abnormal . GRAN MAT (NEUT) % 67.7 % (test code = 770-8) IMM GRAN % (test code 0.50 % = 0151202931) LYMPH % (test code = 18.5 % 736-9) MONO % (test code = 9.5 % 5905-5) EOS % (test code = 3.0 % 713-8) BASO % (test code = 0.8 % 706-2) GRAN MAT x10^3(ANC) 6.62 10*3/uL 1.99-6.95 (test code = 0142691223) IMM GRAN x10^3 (test 0.05 10*3/uL 0.00-0.06 code = 5818557099) LYMPH x10^3 (test code 1.81 10*3/uL 1.09-3.23 = 731-0) MONO x10^3 (test code 0.93 10*3/uL 0.36-1.02 = 742-7) EOS x10^3 (test code = 0.29 10*3/uL 0.06-0.53 711-2) BASO x10^3 (test code 0.08 10*3/uL 0.01-0.09 = 704-7) Lab Interpretation Abnormal (test code = 25103-4) [facility] GLUCOSE (AUTOMATED)2021-10-24 21:55:13 Test Item Value Reference Range Interpretation Comments POCT GLU (test code = 5144552329) 95 mg/dL 70-110 Lab Interpretation (test code = Normal 39859-1) [facility] GLUCOSE (AUTOMATED)2021-10-24 17:52:25 Test Item Value Reference Range Interpretation Comments POCT GLU (test code = 4273270162) 133 mg/dL 70-110 H Lab Interpretation (test code = Abnormal 54215-6) [facility] [id number] 13:33:08 Test Item Value Reference Range Interpretation Comments NT-proBNP (test code 2100 pg/mL See_Comment H [Autom ated = 2413546851) message] The system which generated this result transmitted reference range : <=125. The reference range was not used to interpret this result as normal/abnormal . BANDAR (test code = BANDAR) Biotin has been reported to cause a negative bias, interpret results relative to patient's use of biotin. Lab Interpretation Abnormal (test code = 22809-3) [facility] GLUCOSE (AUTOMATED)2021-10-24 12:54:28 Test Item Value Reference Range Interpretation Comments POCT GLU (test code = 6940384408) 125 mg/dL 70-110 H Lab Interpretation (test code = Abnormal 34837-4) [facility] (NA, K, CL, CO2, GLUCOSE, BUN, CREATININE, CA)2021-10-24 11:27:28 Test Item Value Reference Range Interpretation Comments NA (test code = 144 mmol/L 135-145 9960773780) K (test code = 4.1 mmol/L 3.5-5.0 8979673821) CL (test code = 104 mmol/L 98-108 9713766052) CO2 TOTAL (test code = 29 mmol/L 23-31 4866545881) AGAP (test code = 2-16 6725835794) BUN (test code = 32 mg/dL 7-23 H 4911276298) GLUCOSE (test code = 124 mg/dL 70-110 H 3863611036) CREATININE (test code = 1.32 mg/dL 0.60-1.25 H 1544066161) CALCIUM (test code = 9.8 mg/dL 8.6-10.6 3240786589) eGFR (test code = mL/min/1.73m2 4519187105) BANDAR (test code = BANDAR) Association of [...] tests). Lab Interpretation Abnormal (test code = 72494-6) [facility]2022-06-21 10:06:33 Test Item Value Reference Range Interpretation Comments MAGNESIUM (test code = 0537464598) 1.8 mg/dL 1.7-2.4 Lab Interpretation (test code = Normal 32471-1) [facility] CenterPHOS[facility]2022-06-21 10:06:13 Test Item Value Reference Range Interpretation Comments PHOSPHORUS (test code = 6220885112) 2.9 mg/dL 2.5-5.0 Lab Interpretation (test code = Normal 82564-5) [facility] Center[facility] WITH [id number] 09:33:08 Test Item Value Reference Range Interpretation [...] (test code = 56.1 fL 38.5-51.6 H 45389-9) RDW-CV (test code = 18.6 % 12.1-15.4 H 788-0) PLT (test code = See_Comment [Automated 777-3) message] The sy stem which generated this result transmitted reference range : 150 - 328 10*3/ ?L. The reference r cheri was not used to interpret this result as normal/abnormal . MPV (test code = 10.7 fL 9.8-13.0 50799-6) NRBC/100 WBC (test See_Comment [Automat ed code = 5045104497) message] The system which generated this result transmitted reference range : 0.0 - 10.0 /100 WBCs. The refer ence range was not u sed to interpret th is result as normal/abnormal . NRBC x10^3 (test code <0.01 See_Comment [Auto mated = 5772324534) message] The s ystem which generated this result transmitted reference range : 10*3/?L. The reference range was not used to interpret this result as normal/abnormal . GRAN MAT (NEUT) % 63.6 % (test code = 770-8) IMM GRAN % (test code 0.40 % = 3547803479) LYMPH % (test code = 19.3 % 736-9) MONO % (test code = 12.7 % 5905-5) EOS % (test code = 3.3 % 713-8) BASO % (test code = 0.7 % 706-2) GRAN MAT x10^3(ANC) 5.16 10*3/uL 1.99-6.95 (test code = 0590242191) IMM GRAN x10^3 (test 0.03 10*3/uL 0.00-0.06 code = 9198673123) LYMPH x10^3 (test code 1.57 10*3/uL 1.09-3.23 = 731-0) MONO x10^3 (test code 1.03 10*3/uL 0.36-1.02 H = 742-7) EOS x10^3 (test code = 0.27 10*3/uL 0.06-0.53 711-2) BASO x10^3 (test code 0.06 10*3/uL 0.01-0.09 = 704-7) Lab Interpretation Abnormal (test code = 54157-5) [facility] CenterVITAMIN D, [id number] 05:34:57 Test Item Value Reference Range Interpretation Comments VIT D 25OH (test code = 34 ng/mL 25-80 27951-4) BANDAR (test code = BANDAR) Deficiency: <20 ng/mLInsufficiency : 20-24 ng/mLOptimal: 25-80 ng/mL Lab Interpretation (test Normal code = 37721-9) [facility] GLUCOSE (AUTOMATED)2021-10-24 01:10:46 Test Item Value Reference Range Interpretation Comments POCT GLU (test code = 4353390687) 116 mg/dL 70-110 H Lab Interpretation (test code = Abnormal 55777-6) [facility] GLUCOSE (AUTOMATED)2021-10-24 01:10:46 Test Item Value Reference Range Interpretation Comments POCT GLU (test code = 1676400763) 74 mg/dL 70-110 Lab Interpretation (test code = Normal 54679-3) [facility] GLUCOSE (AUTOMATED)2021-10-23 16:44:48 Test Item Value Reference Range Interpretation Comments POCT GLU (test code = 9017629727) 103 mg/dL 70-110 Lab Interpretation (test code = Normal 18883-7) [facility] CenterDIFF CONSULT [id number] 15:39:18 ABSOLUTE NEUTROPHILIA AND LYMPHOPENIA. NORMOCYTIC HYPOCHROMIC ANEMIA, CONSISTENT WITH IRON DEFICIENCY ANEMIA. PLATELETS ARE UNREMARKABLE.[facility] CenterTROPONIN [id number] 14:35:37 Test Item Value Reference Interpretation Comments Range TROPONIN I (test 0.034 ng/mL See_Comment [Automated code = 9228681132) message] The system which generated this result [...] biotin. Lab Interpretation Normal (test code = 14327-1) [facility] CenterN-TERMINAL [id number] 14:32:36 Test Item Value Reference Range Interpretation Comments NT-proBNP (test code 2050 pg/mL See_Comment H [Autom ated = 1775129501) message] The system which generated this result transmitted reference range : <=125. The reference range was not used to interpret this result as normal/abnormal . BANDAR (test code = BANDAR) Biotin has been reported to cause a negative bias, interpret results relative to patient's use of biotin. Lab Interpretation Abnormal (test code = 90065-4) [facility] GLUCOSE (AUTOMATED)2021-10-23 12:39:39 Test Item Value Reference Range Interpretation Comments POCT GLU (test code = 6176468317) 102 mg/dL 70-110 Lab Interpretation (test code = Normal 33830-9) [facility] CenterMAG[facility]UM2022-06-20 09:37:58 Test Item Value Reference Range Interpretation Comments MAGNESIUM (test code = 2693142852) 1.8 mg/dL 1.7-2.4 Lab Interpretation (test code = Normal 93733-0) [facility]BA[facility] (NA, K, CL, CO2, GLUCOSE, BUN, CREATININE, CA)2021-10-23 09:37:38 Test Item Value Reference Range Interpretation Comments NA (test code = 142 mmol/L 135-145 9867266422) K (test code = 3.4 mmol/L 3.5-5.0 L 4548673572) CL (test code = 106 mmol/L 98-108 7008832601) CO2 TOTAL (test code = 28 mmol/L 23-31 0419163361) AGAP (test code = 2-16 4359112934) BUN (test code = 32 mg/dL 7-23 H 5015477769) GLUCOSE (test code = 107 mg/dL 70-110 0700548387) CREATININE (test code = 1.32 mg/dL 0.60-1.25 H 4736618745) CALCIUM (test code = 9.2 mg/dL 8.6-10.6 1517419872) eGFR (test code = mL/min/1.73m2 5945549000) BANDAR (test code = BANDAR) Association of [...] tests). Lab Interpretation Abnormal (test code = 78836-2) [facility] CenterPHOSPHORUS2022-06-20 09:37:38 Test Item Value Reference Range Interpretation Comments PHOSPHORUS (test code = 2797404888) 3.0 mg/dL 2.5-5.0 Lab Interpretation (test code = Normal 07515-9) [facility] WITH [id number] 09:06:17 Test Item Value Reference Range Interpretation [...] (test code = 55.0 fL 38.5-51.6 H 16265-0) RDW-CV (test code = 18.6 % 12.1-15.4 H 788-0) PLT (test code = See_Comment [Automated 777-3) message] The sy stem which generated this result transmitted reference range : 150 - 328 10*3/ ?L. The reference r cheri was not used to interpret this result as normal/abnormal . MPV (test code = 10.1 fL 9.8-13.0 85296-6) NRBC/100 WBC (test See_Comment [Automat ed code = 2340277974) message] The system which generated this result transmitted reference range : 0.0 - 10.0 /100 WBCs. The refer ence range was not u sed to interpret th is result as normal/abnormal . NRBC x10^3 (test code <0.01 See_Comment [Auto mated = 0544373418) message] The s ystem which generated this result transmitted reference range : 10*3/?L. The reference range was not used to interpret this result as normal/abnormal . GRAN MAT (NEUT) % 64.5 % (test code = 770-8) IMM GRAN % (test code 0.40 % = 2977511141) LYMPH % (test code = 18.9 % 736-9) MONO % (test code = 11.0 % 5905-5) EOS % (test code = 4.3 % 713-8) BASO % (test code = 0.9 % 706-2) GRAN MAT x10^3(ANC) 5.11 10*3/uL 1.99-6.95 (test code = 8370520641) IMM GRAN x10^3 (test 0.03 10*3/uL 0.00-0.06 code = 6462545842) LYMPH x10^3 (test code 1.50 10*3/uL 1.09-3.23 = 731-0) MONO x10^3 (test code 0.87 10*3/uL 0.36-1.02 = 742-7) EOS x10^3 (test code = 0.34 10*3/uL 0.06-0.53 711-2) BASO x10^3 (test code 0.07 10*3/uL 0.01-0.09 = 704-7) Lab Interpretation Abnormal (test code = 68537-1) [facility] GLUCOSE (AUTOMATED)2021-10-23 04:31:07 Test Item Value Reference Range Interpretation Comments POCT GLU (test code = 7015278555) 189 mg/dL 70-110 H Lab Interpretation (test code = Abnormal 60922-3) [facility] CenterPO[facility] (AUTOMATED)2021-10-22 22:11:54 Test Item Value Reference Range Interpretation Comments POCT GLU (test code = 1274510808) 148 mg/dL 70-110 H Lab Interpretation (test code = Abnormal 56815-2) [facility] CenterTransthoracic echo (TTE)2021-10-22 17:54:54 Test Item Value Reference Range Interpretation Comments Height (test code = in 0003838235) Weight (test code = lbs 2759148541) Systolic BP (test code = mmHg 4065426774) Diastolic BP (test code = mmHg 8441156176) Heart Rate (test code = bpm 5599565029) BSA (test code = 2.30 m2 1700355484) LVOT diameter (test code 2.02 cm = 5139555013) Ao root annulus (test 3.3 cm code = 3082611337) Ao root diam (test code = 3.30 cm 0218447780) Aortic root (test code = 3.3 cm 9752489729) LA size (test code = 4.7 cm 5440263034) ACS (test code = 1.80 cm 1760333693) PV PEAK VELOCITY (test 119.7 cm/s code = 2836933627) PV peak gradient (test mmHg code = 4887984864) MV E-F slope (test code = 65.70 cm/s 5623181791) MV Peak E Francisco (test code 104.2 cm/s = 4587230600) MV valve area p 1/2 5.30 cm2 method (test code = 6336434880) MV dec slope (test code = 753.20 cm/s2 9036507723) MV P1/2t max francisco (test 106.20 cm/s code = 4551627085) LVOT stroke volume (test 53.70 cm3 code = 6925142067) LVOT peak francisco (test code 100.3 cm/s = 7912462424) LVOT mn grad (test code = mmHg 4653893314) AV LVOT peak gradient mmHg (test code = 8638139267) LVOT peak VTI (test code 16.7 cm = 2527679770) LV V1 mean (test code = 56.30 cm/s 0048677718) Aortic valve mean 105.1 cm/s velocity (test code = 4529408550) Ao peak francisco (test code = 206.3 cm/s 6097295451) Ao VTI (test code = 30.5 cm 0117241121) AV area by cont VTI (test 1.8 cm2 code = 4676648270) AV area peak francisco (test 1.6 cm2 code = 3858531460) Ao max PG (test code = 17.00 mm[Hg] 6424941782) AV peak gradient (test mmHg code = 9063544242) AV valve area (test code 1.76 cm2 = 3213635690) AV mean gradient (test mmHg code = 5669323998) MR max PG (test code = 19.30 mm[Hg] 3434702148) MR max francisco (test code = 219.90 cm/s 2553209570) Mr max francisco (test code = 219.9 m/s 4732871791) LVIDD (test code = 4.50 cm 8149258515) IVS (test code = 1.19 cm 1898951729) Interventricular Septum 1.19 cm Diastolic Thickness by 2D (test code = 6912631) LVPWD (test code = 1.32 cm 0114033694) PW (test code = 1.32 cm 0.6-1.8 5162438027) EF(Teich) (test code = 49.90 % 0644124321) LVIDS (test code = 3.30 cm 6519543708) FS (test code = 25 % 0200518882) EF - 2D (test code = 49.90 % 85770292) TR Peak Francisco (test code = 253.8 cm/s 7055628276) Triscuspid Valve mmHg Regurgitation Peak Gradient (test code = 2603382021) Radiology Study observation (narrative) (test code = 86835-2) BANDAR (test code = BANDAR) ?Left?Ventricle: Left ventricle size is normal. Mild basal septal thickening. See diagram for wall motion findings. Mildly reduced systolic function with a visually estimated EF of 40 - 45%. Unable to assess diastolic function due to arrhythmia. ?Tricuspid?Valve: Insufficient regurgant jet to estimate RVSP. ?RA pressure is 10-15 mmHg. ?Left?Atrium: Left atrium is mildly dilated. [facility] GLUCOSE (AUTOMATED)2021-10-22 17:09:32 Test Item Value Reference Range Interpretation Comments POCT GLU (test code = 0123953549) 82 mg/dL 70-110 Lab Interpretation (test code = Normal 76641-5) [facility] GLUCOSE (AUTOMATED)2021-10-22 13:04:19 Test Item Value Reference Range Interpretation Comments POCT GLU (test code = 4425510895) 106 mg/dL 70-110 Lab Interpretation (test code = Normal 44312-3) [facility] Metabolic Panel (NA, K, CL, CO2, GLUCOSE, BUN, CREATININE, CA)2021-10-22 10:45:20 Test Item Value Reference Range Interpretation Comments NA (test code = 143 mmol/L 135-145 9268321475) K (test code = 3.5 mmol/L 3.5-5.0 1181516269) CL (test code = 104 mmol/L 98-108 7887796742) CO2 TOTAL (test code = 29 mmol/L 23-31 0835167882) AGAP (test code = 2-16 9899213794) BUN (test code = 37 mg/dL 7-23 H 2931253068) GLUCOSE (test code = 91 mg/dL 70-110 7324418517) CREATININE (test code = 1.38 mg/dL 0.60-1.25 H 2892419691) CALCIUM (test code = 9.6 mg/dL 8.6-10.6 5303275225) eGFR (test code = mL/min/1.73m2 7046425727) BANDAR (test code = BANDAR) Association of [...] tests). Lab Interpretation Abnormal (test code = 74857-8) [facility] [id number] 10:42:50 Test Item Value Reference Range Interpretation Comments NT-proBNP (test code 3070 pg/mL See_Comment H [Autom ated = 9940868935) message] The system which generated this result transmitted reference range : <=125. The reference range was not used to interpret this result as normal/abnormal . BANDAR (test code = BANDAR) Biotin has been reported to cause a negative bias, interpret results relative to patient's use of biotin. Lab Interpretation Abnormal (test code = 46156-5) [facility] Center[facility]id Panel (Total Cholesterol, Triglycerides, HDL) - [id number] 10:39:48 Test Item Value Reference Range Interpretation Comments CHOL (test code = 106 mg/dL 120-200 L [id number]) HDL (test code = 25 mg/dL >40 L [id number]) HDLC RATIO (test code = See_Comment [Au tomated message] [id number]) The system [employer] generated this result transmit oziel reference range : <=5.0. The refe rence range was not u sed to interpret th is result as normal/abnormal . TRIG (test code = 93 mg/dL 30-170 [id number]) LDL CHOL (test code = 62 mg/dL See_Comment [Auto mated message] 15948-0) The system whic h generated this result transmit oziel reference range : <=160. The refe rence range was not u sed to interpret th is result as normal/abnormal . VLDL (test code = 19 mg/dL 5-60 [id number]) Lab Interpretation (test Abnormal code = 93016-3) [facility] CenterMagnesium [id number] 10:39:28 Test Item Value Reference Range Interpretation Comments MAGNESIUM (test code = 9685501102) 1.9 mg/dL 1.7-2.4 Lab Interpretation (test code = Normal 63996-3) [facility] with [id number] 09:23:46 Test Item Value Reference Range Interpretation [...] (test code = 55.4 fL 38.5-51.6 H 62514-4) RDW-CV (test code = 18.6 % 12.1-15.4 H 788-0) PLT (test code = See_Comment [Automated 777-3) message] The sy stem which generated this result transmitted reference range : 150 - 328 10*3/ ?L. The reference r cheri was not used to interpret this result as normal/abnormal . MPV (test code = 10.4 fL 9.8-13.0 43492-2) NRBC/100 WBC (test See_Comment [Automat ed code = 6790987817) message] The system which generated this result transmitted reference range : 0.0 - 10.0 /100 WBCs. The refer ence range was not u sed to interpret th is result as normal/abnormal . NRBC x10^3 (test code <0.01 See_Comment [Auto mated = 6763205289) message] The s ystem which generated this result transmitted reference range : 10*3/?L. The reference range was not used to interpret this result as normal/abnormal . GRAN MAT (NEUT) % 70.0 % (test code = 770-8) IMM GRAN % (test code 0.30 % = 6208368725) LYMPH % (test code = 16.3 % 736-9) MONO % (test code = 10.2 % 5905-5) EOS % (test code = 2.5 % 713-8) BASO % (test code = 0.7 % 706-2) GRAN MAT x10^3(ANC) 4.99 10*3/uL 1.99-6.95 (test code = 2818427817) IMM GRAN x10^3 (test <0.03 0.00-0.06 code = 5806011110) LYMPH x10^3 (test code 1.16 10*3/uL 1.09-3.23 = 731-0) MONO x10^3 (test code 0.73 10*3/uL 0.36-1.02 = 742-7) EOS x10^3 (test code = 0.18 10*3/uL 0.06-0.53 711-2) BASO x10^3 (test code 0.05 10*3/uL 0.01-0.09 = 704-7) Lab Interpretation Abnormal (test code = 01138-0) [facility] CenterVITAMIN B12, [id number] 07:25:36 Test Item Value Reference Range Interpretation Comments VIT B12 (test code = 428 pg/mL 240-930 0783807468) BANDAR (test code = BANDAR) Biotin has been reported to cause a positive bias, interpret results relative to patient's use of biotin. Lab Interpretation (test Normal code = 09160-4) [facility] CenterFOLATE2022-06-19 07:25:36 Test Item Value Reference Range Interpretation Comments FOLATE SER (test code = 20.0 ng/mL 3.0-20.0 Slig ht hemolysis 6542764234) Lab Interpretation (test Normal code = 26439-2) [facility] CenterGlycosylated Hemoglobin (A1C)2021-10-22 03:41:06 Test Item Value Reference Range Interpretation Comments HGB A1C (test code = 5.2 % 4.0-5.7 4548-4) BANDAR (test code = BANDAR) Reference RangesNormal: <5.7%Prediabetes: 5.7 - 6.4%Diabetes: > 6.5% Lab Interpretation (test Normal code = 55160-6) [facility] CenterPOCT GLUCOSE (AUTOMATED)2021-10-22 01:34:25 Test Item Value Reference Range Interpretation Comments POCT GLU (test code = 3498797191) 174 mg/dL 70-110 H Lab Interpretation (test code = Abnormal 54063-4) [facility] CenterTROPONIN [id number] 23:34:19 Test Item Value Reference Interpretation Comments Range TROPONIN I (test 0.044 ng/mL See_Comment H [Automated code = 8256429547) message] The system which generated this result [...] biotin. Lab Interpretation Abnormal (test code = 49647-6) [facility] CenterPhosphorus [id number] 23:21:36 Test Item Value Reference Range Interpretation Comments PHOSPHORUS (test code = 1289654042) 3.4 mg/dL 2.5-5.0 Lab Interpretation (test code = Normal 74968-0) [facility] CenterFERRITIN [id number] 22:13:55 Test Item Value Reference Range Interpretation Comments FERRITIN (test code = 35.7 ng/mL 18.0-464.0 2848607612) BANDAR (test code = BANDAR) Biotin has been reported to cause a negative bias, interpret results relative to patient's use of biotin. Lab Interpretation (test Normal code = 31635-8) [facility] CenterTHYROID STIMULATING [id number] 22:09:58 Test Item Value Reference Range Interpretation Comments TSH (test code = See_Comment [Automated message] 7524204102) The system [place] generated this result transmitted ref erence range: 0.45 - 4 .70 mIU/L. The refe rence range was not u sed to interpret this result as normal/abnor mal. Lab Interpretation (test Normal code = 06767-1) [facility] CenterIRON [id number] 21:10:12 Test Item Value Reference Range Interpretation Comments IRON (test code = 8283841100) 38 ug/dL 50-160 L TIBC (test code = 7335936239) 303 ug/dL 250-410 % FE SAT (test code = 2369740525) 13 % 20-50 L Lab Interpretation (test code = Abnormal 55523-4) [facility] CenterTROPONIN [id number] 17:02:18 Test Item Value Reference Interpretation Comments Range TROPONIN I (test 0.037 ng/mL See_Comment H [Automated code = 0712156965) message] The system which generated this result [...] biotin. Lab Interpretation Abnormal (test code = 68823-0) [facility] CenterN-TERMINAL [id number] 16:59:17 Test Item Value Reference Range Interpretation Comments NT-proBNP (test code 1980 pg/mL See_Comment H [Autom ated = 4391576789) message] The system which generated this result transmitted reference range : <=125. The reference range was not used to interpret this result as normal/abnormal . BANDAR (test code = BANDAR) Biotin has been reported to cause a negative bias, interpret results relative to patient's use of biotin. Lab Interpretation Abnormal (test code = 33827-0) [facility] CenterCOMP. METABOLIC PANEL (00660)2021-10-21 16:50:57 Test Item Value Reference Range Interpretation Comments NA (test code = 141 mmol/L 135-145 9847397007) K (test code = 4.5 mmol/L 3.5-5.0 5993352098) CL (test code = 105 mmol/L 98-108 0645141161) CO2 TOTAL (test code = 24 mmol/L 23-31 1366817801) AGAP (test code = 2-16 8381148741) BUN (test code = 43 mg/dL 7-23 H 9739398896) GLUCOSE (test code = 109 mg/dL 70-110 7265314204) CREATININE (test code = 1.30 mg/dL 0.60-1.25 H 7616403625) TOTAL BILI (test code = 0.4 mg/dL 0.1-1.2 8388442464) CALCIUM (test code = 9.5 mg/dL 8.6-10.6 0420323119) T PROTEIN (test code = 6.1 g/dL 6.3-8.2 L 6432910319) ALBUMIN (test code = 3.5 g/dL 3.5-5.0 2907337702) ALK PHOS (test code = 79 U/L 34-122 4106422096) ALTv (test code = 14 U/L 5-50 1742-6) AST(SGOT) (test code = 20 U/L 13-40 0645276507) eGFR (test code = mL/min/1.73m2 8906717538) BANDAR (test code = BANDAR) Association of [...] tests). Lab Interpretation Abnormal (test code = 41965-8) [facility] CenterLIPASE2022-06-18 16:50:16 Test Item Value Reference Range Interpretation Comments LIPASE (test code = 6203499813) 44 U/L 0-220 Lab Interpretation (test code = Normal 36996-9) [facility] CenterCB WITH [id number] 16:28:13 Test Item Value Reference Range Interpretation Comments WBC (test code = See_Comment [Automated 9721-2) message] The sy stem which generated this result transmitted reference range : 4.20 - 10.70 10*3/?L. The reference range was not used to interpret this result as normal/abnormal . RBC (test code = See_Comment L [Automated 659-8) message] The sy stem which generated this [...] (test code = 55.2 fL 38.5-51.6 H 79853-4) RDW-CV (test code = 18.5 % 12.1-15.4 H 788-0) PLT (test code = See_Comment [Automated 777-3) message] The sy stem which generated this result transmitted reference range : 150 - 328 10*3/ ?L. The reference r cheri was not used to interpret this result as normal/abnormal . MPV (test code = 10.3 fL 9.8-13.0 74132-6) NRBC/100 WBC (test See_Comment [Automat ed code = 5744059903) message] The system which generated this result transmitted reference range : 0.0 - 10.0 /100 WBCs. The refer ence range was not u sed to interpret th is result as normal/abnormal . NRBC x10^3 (test code <0.01 See_Comment [Auto mated = 5626038512) message] The s ystem which generated this result transmitted reference range : 10*3/?L. The reference range was not used to interpret this result as normal/abnormal . GRAN MAT (NEUT) % 80.7 % (test code = 770-8) IMM GRAN % (test code 0.60 % = 8171178753) LYMPH % (test code = 8.3 % 736-9) MONO % (test code = 9.1 % 5905-5) EOS % (test code = 0.7 % 713-8) BASO % (test code = 0.6 % 706-2) GRAN MAT x10^3(ANC) 7.62 10*3/uL 1.99-6.95 H (test code = 7179653993) IMM GRAN x10^3 (test 0.06 10*3/uL 0.00-0.06 code = 2444604482) LYMPH x10^3 (test code 0.78 10*3/uL 1.09-3.23 L = 731-0) MONO x10^3 (test code 0.86 10*3/uL 0.36-1.02 = 742-7) EOS x10^3 (test code = 0.07 10*3/uL 0.06-0.53 711-2) BASO x10^3 (test code 0.06 10*3/uL 0.01-0.09 = 704-7) Lab Interpretation Abnormal (test code = 44821-4) [facility] CenterCOVID 19 Asymptomatic IH [id number] 04:39:00 Test Item Value Reference Range Interpretation [...] perform moderate, high or waivedcomplexit y tests. [id number] 12:02:00 Test Item Value Reference Range Interpretation Comments ALBUMIN (test code = ALB) 3.00 g/dL 3.4-5.0 L [id number] 12:02:00 Test Item Value Reference Range Interpretation Comments PREALBUMIN (test code = PREALB) 10.9 mg/dL 16.0-40.0 L INFECTION CONTROL [id number] 09:43:00 Test Item Value Reference Range Interpretation Comments HEPATITIS C RNA HCV Not Dete ctedNo BY PCR-QUAL (test evidence o f active code = HCVRNAPCR) HCV infect ion. AG HEPATITIS B NON REACTIVE INDEX NonReactive SURFACE (test code = HBSAG) AB HIV 1 2 (test Nonreactive Nonreactive code = VJI70AE) HIV 1/2 RAPID NONREACTIVE NONREACTIVE SCREEN (test code = APE22XXS) AG HIV1 P24 (test NONREACTIVE NONREACTIVE code = VKK5V57) GLUCOSE [id number] 06:46:00 Test Item Value Reference Range Interpretation Comments GLUCOSE BEDSIDE (test 110 MG/DL 70-110 N Perfor med by certified code = GLUBED) grind operator at [facility] GLUCOSE [id number] 19:56:00 Test Item Value Reference Range Interpretation Comments GLUCOSE BEDSIDE (test 186 MG/DL 70-110 H Perfor med by certified code = GLUBED) grind operator at [facility] GLUCOSE [id number] 15:46:00 Test Item Value Reference Range Interpretation Comments GLUCOSE BEDSIDE (test 90 MG/DL 70-110 N Perfor med by certified code = GLUBED) grind operator at [facility] BASIC METABOLIC [id number] 15:42:00 Test Item Value Reference Range Interpretation [...] code = 10.1 mg/dL 8.0-10.5 N CA) [id number] 15:42:00 Test Item Value Reference Range Interpretation Comments MAGNESIUM (test code = MAG) 1.93 mg/dL 1.80-2.40 N GLUCOSE [id number] 11:11:00 Test Item Value Reference Range Interpretation Comments GLUCOSE BEDSIDE (test 147 MG/DL 70-110 H Perfor med by certified code = GLUBED) grind operator at [facility] GLUCOSE [id number] 07:24:00 Test Item Value Reference Range Interpretation Comments GLUCOSE BEDSIDE (test 118 MG/DL 70-110 H Perfor med by certified code = GLUBED) grind operator at [facility] GLUCOSE [id number] 18:34:00 Test Item Value Reference Range Interpretation Comments GLUCOSE BEDSIDE (test 174 MG/DL 70-110 H Perfor med by certified code = GLUBED) grind operator at [facility] GLUCOSE [id number] 11:08:00 Test Item Value Reference Range Interpretation Comments GLUCOSE BEDSIDE (test 121 MG/DL 70-110 H Perfor med by certified code = GLUBED) grind operator at [facility] GLUCOSE [id number] 07:29:00 Test Item Value Reference Range Interpretation Comments GLUCOSE BEDSIDE (test 117 MG/DL 70-110 H Perfor med by certified code = GLUBED) grind operator at [facility] GLUCOSE [id number] 19:12:00 Test Item Value Reference Range Interpretation Comments GLUCOSE BEDSIDE (test 111 MG/DL 70-110 H Perfor med by certified code = GLUBED) grind operator at [facility] GLUCOSE [id number] 16:11:00 Test Item Value Reference Range Interpretation Comments GLUCOSE BEDSIDE (test 116 MG/DL 70-110 H Perfor med by certified code = GLUBED) grind operator at [facility] GLUCOSE [id number] 11:32:00 Test Item Value Reference Range Interpretation Comments GLUCOSE BEDSIDE (test 163 MG/DL 70-110 H Perfor med by certified code = GLUBED) grind operator at [facility] GLUCOSE [id number] 07:29:00 Test Item Value Reference Range Interpretation Comments GLUCOSE BEDSIDE (test 113 MG/DL 70-110 H Perfor med by certified code = GLUBED) grind operator at [facility] GLUCOSE [id number] 20:08:00 Test Item Value Reference Range Interpretation Comments GLUCOSE BEDSIDE (test 101 MG/DL 70-110 N Perfor med by certified code = GLUBED) grind operator at [facility] BASIC METABOLIC [id number] 17:39:00 Test Item Value Reference Range Interpretation [...] code = 10.2 mg/dL 8.0-10.5 N CA) [id number] 17:39:00 Test Item Value Reference Range Interpretation Comments MAGNESIUM (test code = MAG) 2.01 mg/dL 1.80-2.40 N GLUCOSE [id number] 16:18:00 Test Item Value Reference Range Interpretation Comments GLUCOSE BEDSIDE (test 116 MG/DL 70-110 H Perfor med by certified code = GLUBED) grind operator at [facility] GLUCOSE [id number] 11:56:00 Test Item Value Reference Range Interpretation Comments GLUCOSE BEDSIDE (test 143 MG/DL 70-110 H Perfor med by certified code = GLUBED) grind operator at [facility] GLUCOSE [id number] 07:45:00 Test Item Value Reference Range Interpretation Comments GLUCOSE BEDSIDE (test 114 MG/DL 70-110 H Perfor med by certified code = GLUBED) grind operator at [facility] BASIC METABOLIC [id number] 07:34:00 Test Item Value Reference Range Interpretation [...] = 10.1 mg/dL 8.0-10.5 N CA) GLUCOSE [id number] 21:08:00 Test Item Value Reference Range Interpretation Comments GLUCOSE BEDSIDE (test 102 MG/DL 70-110 N Perfor med by certified code = GLUBED) grind operator at [facility] GLUCOSE [id number] 20:23:00 Test Item Value Reference Range Interpretation Comments GLUCOSE BEDSIDE (test 85 MG/DL 70-110 N Perfor med by certified code = GLUBED) grind operator at [facility] GLUCOSE [id number] 19:08:00 Test Item Value Reference Range Interpretation Comments GLUCOSE BEDSIDE (test 77 MG/DL 70-110 N Perfor med by certified code = GLUBED) grind operator at [facility] GLUCOSE [id number] 12:45:00 Test Item Value Reference Range Interpretation Comments GLUCOSE BEDSIDE (test 170 MG/DL 70-110 H Perfor med by certified code = GLUBED) grind operator at [facility] GLUCOSE [id number] 08:20:00 Test Item Value Reference Range Interpretation Comments GLUCOSE BEDSIDE (test 130 MG/DL 70-110 H Perfor med by certified code = GLUBED) grind operator at [facility] BASIC METABOLIC [id number] 07:31:00 Test Item Value Reference Range Interpretation [...] = 10.4 mg/dL 8.0-10.5 N CA) GLUCOSE [id number] 20:26:00 Test Item Value Reference Range Interpretation Comments GLUCOSE BEDSIDE (test 135 MG/DL 70-110 H Perfor med by certified code = GLUBED) grind operator at [facility] GLUCOSE [id number] 16:49:00 Test Item Value Reference Range Interpretation Comments GLUCOSE BEDSIDE (test 116 MG/DL 70-110 H Perfor med by certified code = GLUBED) grind operator at [facility] GLUCOSE [id number] 12:26:00 Test Item Value Reference Range Interpretation Comments GLUCOSE BEDSIDE (test 150 MG/DL 70-110 H Perfor med by certified code = GLUBED) grind operator at [facility] COVID 19 Asymptomatic IH [id number] 12:14:00 Test Item Value Reference Range Interpretation [...] moderate, high or waivedcomplexit y tests. GLUCOSE [id number] 08:15:00 Test Item Value Reference Range Interpretation Comments GLUCOSE BEDSIDE (test 109 MG/DL 70-110 N Perfor med by certified code = GLUBED) grind operator at [facility] BASIC METABOLIC [id number] 07:16:00 Test Item Value Reference Range Interpretation [...] code = 9.3 mg/dL 8.0-10.5 N CA) [id number] 07:16:00 Test Item Value Reference Range Interpretation Comments MAGNESIUM (test code = MAG) 1.97 mg/dL 1.80-2.40 N GLUCOSE [id number] 21:31:00 Test Item Value Reference Range Interpretation Comments GLUCOSE BEDSIDE (test 83 MG/DL 70-110 N Perfor med by certified code = GLUBED) grind operator at [facility] GLUCOSE [id number] 11:59:00 Test Item Value Reference Range Interpretation Comments GLUCOSE BEDSIDE (test 153 MG/DL 70-110 H Perfor med by certified code = GLUBED) grind operator at [facility] GLUCOSE [id number] 08:27:00 Test Item Value Reference Range Interpretation Comments GLUCOSE BEDSIDE (test 88 MG/DL 70-110 N Perfor med by certified code = GLUBED) grind operator at [facility] BASIC METABOLIC [id number] 08:04:00 Test Item Value Reference Range Interpretation [...] code = 9.6 mg/dL 8.0-10.5 N CA) [id number] 08:04:00 Test Item Value Reference Range Interpretation Comments MAGNESIUM (test code = MAG) 1.80 mg/dL 1.80-2.40 N CBC W/AUTO [id number] 07:11:00 Test Item Value Reference Range Interpretation [...] REQUIRED (test code NO = MDIFF) GLUCOSE [id number] 20:29:00 Test Item Value Reference Range Interpretation Comments GLUCOSE BEDSIDE (test 121 MG/DL 70-110 H Perfor med by certified code = GLUBED) grind operator at [facility] GLUCOSE [id number] 18:02:00 Test Item Value Reference Range Interpretation Comments GLUCOSE BEDSIDE (test 104 MG/DL 70-110 N Perfor med by certified code = GLUBED) grind operator at [facility] GLUCOSE [id number] 18:02:00 Test Item Value Reference Range Interpretation Comments GLUCOSE BEDSIDE (test 78 MG/DL 70-110 N Perfor med by certified code = GLUBED) grind operator at [facility] GLUCOSE [id number] 16:50:00 Test Item Value Reference Range Interpretation Comments GLUCOSE BEDSIDE (test 69 MG/DL 70-110 L Perfor med by certified code = GLUBED) grind operator at [facility] GLUCOSE [id number] 12:12:00 Test Item Value Reference Range Interpretation Comments GLUCOSE BEDSIDE (test 96 MG/DL 70-110 N Perfor med by certified code = GLUBED) grind operator at [facility] GLUCOSE [id number] 09:05:00 Test Item Value Reference Range Interpretation Comments GLUCOSE BEDSIDE (test 113 MG/DL 70-110 H Perfor med by certified code = GLUBED) grind operator at [facility] GLUCOSE [id number] 07:01:00 Test Item Value Reference Range Interpretation Comments GLUCOSE BEDSIDE (test 96 MG/DL 70-110 N Perfor med by certified code = GLUBED) grind operator at [facility] GLUCOSE [id number] 05:22:00 Test Item Value Reference Range Interpretation Comments GLUCOSE BEDSIDE (test 67 MG/DL 70-110 L Perfor med by certified code = GLUBED) grind operator at [facility] GLUCOSE [id number] 22:12:00 Test Item Value Reference Range Interpretation Comments GLUCOSE BEDSIDE (test 74 MG/DL 70-110 N Perfor med by certified code = GLUBED) grind operator at [facility] GLUCOSE [id number] 18:27:00 Test Item Value Reference Range Interpretation Comments GLUCOSE BEDSIDE (test 83 MG/DL 70-110 N Perfor med by certified code = GLUBED) grind operator at [facility] FLUID [id number] 15:22:00 Test Item Value Reference Range Interpretation Comments FLUID CO2 (test code = CO2BF) 33 21-33 FLUID [id number] 15:21:00 Test Item Value Reference Range Interpretation Comments FLUID CO2 (test code = CO2BF) 33 21-33 N GLUCOSE [id number] 13:20:00 Test Item Value Reference Range Interpretation Comments GLUCOSE BEDSIDE (test 89 MG/DL 70-110 N Perfor med by certified code = GLUBED) grind operator at [facility] BASIC METABOLIC [id number] 12:58:00 Test Item Value Reference Range Interpretation [...] code = 9.7 mg/dL 8.0-10.5 N CA) [id number] 12:58:00 Test Item Value Reference Range Interpretation Comments MAGNESIUM (test code = MAG) 1.90 mg/dL 1.80-2.40 N CBC W/AUTO [id number] 12:43:00 Test Item Value Reference Range Interpretation [...] REQUIRED (test code NO = MDIFF) GLUCOSE [id number] 09:10:00 Test Item Value Reference Range Interpretation Comments GLUCOSE BEDSIDE (test 109 MG/DL 70-110 N Perfor med by certified code = GLUBED) grind operator at [facility] - XR CHEST 1 [id number] 00:00:00 [facility] : 1950 Sex: M FAX: Vinny Chou MD [phone] [place]: St: [facility] FAX: Benedicto Howell MD [phone] Name: OLIVIA MONROY [facility] : 1950 Age/S: 70/M [address] [place] [address] Bl Unit #: [id number] Loc: [address] [address] Phys: Vinny Chou MD Acct: [id number] Dis Date: Status: ADM IN PHONE #: [phone] Exam Date: 08/26/2021 1127 FAX #: [phone] Reason: SOB ON OXYGEN, HEART FAILURE EXAMS: CPT CODE: [id number] XR CHEST 1 V 83810 PROCEDURE INFORMATION: Exam: XR Chest Exam date and time: 08/26/2021 11:25AM Age: 70 years old Clinical indication: Condition or disease; Other: SOB on oxygen, heart failure TECHNIQUE: Imaging protocol: XR of the chest. Views: 1 view. COMPARISON: CR XR CHEST 1V 08/22/2021 6:04 AM FINDINGS: Tubes, catheters and devices: None. Lungs: Zkpg-qr-zlulpvue bilateral perihilar and basilar interstitial lung opacities, suggesting pulmonary edema versus infiltrates. The peripheral lungs are otherwise clear. The pulmonary opacities are most prominent within the lower left lung. Improvement of lung opacities is demonstrated. Pleural spaces: Unremarkable. No pleural effusion. No pneumothorax. Heart/Mediastinum: Cardiac silhouette appears mildly enlarged. Vasculature: Mild atherosclerotic calcification demonstrated within the aorta. Bones/joints: Sternotomy wires, hardware is demonstrated. Diffusely decreased bone density. Generalized bony degenerative changes. Soft tissues: This study is limited by patient's body habitus. IMPRESSION: 1. Ipwl-dy-jriitwpb pulmonary edema versus infiltrates. Improvement. 2. Mild enlarged cardiac silhouette. 3. Degenerative and postsurgical changes aredemonstrated, as described above. at 1848 Reported and signed by: Morteza Bowles M.D. CC: Vinny Chou MD; Benedicto Ramos MD Technologist: Evie Barksdale, RT(R); Brenda Mares RT(R) Trnscrd Date/Time/By: 08/26/2021 (1847) :By: [email or web address] Orig Print D/T: S: 08/26/2021 (1847) PAGE 1 Signed ReportGLUCOSE [id number] 20:49:00 Test Item Value Reference Range Interpretation Comments GLUCOSE BEDSIDE (test 94 MG/DL 70-110 [facility] med by certified code = GLUBED) grind operator at [facility] GLUCOSE [id number] 17:35:00 Test Item Value Reference Range Interpretation Comments GLUCOSE BEDSIDE (test 82 MG/DL 70-110 N Perfor med by certified code = GLUBED) grind operator at [facility] GLUCOSE [id number] 12:09:00 Test Item Value Reference Range Interpretation Comments GLUCOSE BEDSIDE (test 117 MG/DL 70-110 H Perfor med by certified code = GLUBED) grind operator at [facility] GLUCOSE [id number] 08:52:00 Test Item Value Reference Range Interpretation Comments GLUCOSE BEDSIDE (test 126 MG/DL 70-110 H Perfor med by certified code = GLUBED) grind operator at [facility] BASIC METABOLIC [id number] 05:23:00 Test Item Value Reference Range Interpretation [...] code = 9.4 mg/dL 8.0-10.5 N CA) [id number] 05:23:00 Test Item Value Reference Range Interpretation Comments MAGNESIUM (test code = MAG) 2.02 mg/dL 1.80-2.40 FLUID [id number] 03:06:00 Test Item Value Reference Range Interpretation Comments FLUID CO2 (test code = CO2BF) 32 21-33 N FLUID [id number] 03:06:00 Test Item Value Reference Range Interpretation Comments FLUID CO2 (test code = CO2BF) 32 21-33 GLUCOSE [id number] 21:36:00 Test Item Value Reference Range Interpretation Comments GLUCOSE BEDSIDE (test 116 MG/DL 70-110 H Perfor med by certified code = GLUBED) grind operator at [facility] GLUCOSE [id number] 16:18:00 Test Item Value Reference Range Interpretation Comments GLUCOSE BEDSIDE (test 99 MG/DL 70-110 N Perfor med by certified code = GLUBED) grind operator at [facility] GLUCOSE [id number] 12:06:00 Test Item Value Reference Range Interpretation Comments GLUCOSE BEDSIDE (test 128 MG/DL 70-110 H Perfor med by certified code = GLUBED) grind operator at [facility] [id number] 12:00:00 Test Item Value Reference Range Interpretation Comments MAGNESIUM (test code = MAG) 1.67 mg/dL 1.80-2.40 L BASIC METABOLIC [id number] 11:54:00 Test Item Value Reference Range Interpretation [...] 9.9 mg/dL 8.0-10.5 N CA) CBC W/AUTO [id number] 11:49:00 Test Item Value Reference Range Interpretation [...] (test code NO = MDIFF) ARTERIAL BLOOD [id number] 10:44:00 Test Item Value Reference Range Interpretation Comments ARTERIAL BLOOD GAS PH TEST NOT PERFORMED 7.35-7.45 (test code = PHA) ARTERIAL BLOOD GAS PCO2 TEST NOT PERFORMED 35-45 (test code = PCO2A) mmHg ARTERIAL BLOOD GAS PO2 TEST NOT PERFORMED 80-100 (test code = PO2A) mmHg BICARBONATE TOTAL HCO3 TEST NOT PERFORMED 22.0-26.0 (test code = HCO3) mmol/L GLUCOSE [id number] 08:06:00 Test Item Value Reference Range Interpretation Comments GLUCOSE BEDSIDE (test 113 MG/DL 70-110 H Perfor med by certified code = GLUBED) grind operator at [facility] GLUCOSE [id number] 20:33:00 Test Item Value Reference Range Interpretation Comments GLUCOSE BEDSIDE (test 64 MG/DL 70-110 L Perfor med by certified code = GLUBED) grind operator at [facility] GLUCOSE [id number] 18:30:00 Test Item Value Reference Range Interpretation Comments GLUCOSE BEDSIDE (test 62 MG/DL 70-110 L Perfor med by certified code = GLUBED) grind operator at [facility] ARTERIAL BLOOD [id number] 16:48:00 Test Item Value Reference Range Interpretation Comments ARTERIAL BLOOD GAS PH TEST NOT PERFORMED 7.35-7.45 (test code = PHA) ARTERIAL BLOOD GAS PCO2 TEST NOT PERFORMED 35-45 (test code = PCO2A) mmHg ARTERIAL BLOOD GAS PO2 TEST NOT PERFORMED 80-100 (test code = PO2A) mmHg BICARBONATE TOTAL HCO3 TEST NOT PERFORMED 22.0-26.0 (test code = HCO3) mmol/L GLUCOSE [id number] 13:16:00 Test Item Value Reference Range Interpretation Comments GLUCOSE BEDSIDE (test 93 MG/DL 70-110 N Perfor med by certified code = GLUBED) grind operator at [facility] POC ARTERIAL BLOOD [id number] 09:14:00 Test Item Value Reference Range Interpretation Comments POC ARTERIAL BLOOD GAS PH (test 7.373 7.35-7.45 N code = POCPHA) POC ARTERIAL BLOOD GAS PCO2 (test 68.8 mmHg 35.0-45 HH code = ORHDST9H) POC TCO2 ARTERIAL (test code = 42.2 POCTCO2) POC ARTERIAL BLOOD GAS PO2 (test 77.4 mmHg 80-100.0 L code = GLFGA8N) POC HCO3 ARTERIAL (test code = 40.1 MMOL/L 22.0-26.0 HH DRLWGH2P) POC BASE EXCESS (test code = 14.9 MMOL/L -4.0-4.0 H POCBEA) POC O2 SATURATION (test code = 94.2 % 90-100 N POCO2S) ABG SITE (test code = SITEA) R Radial RAUL'S TEST (test code = ALLENS) Positive GLUCOSE [id number] 08:48:00 Test Item Value Reference Range Interpretation Comments GLUCOSE BEDSIDE (test 87 MG/DL 70-110 N Perfor med by certified code = GLUBED) grind operator at [facility] BASIC METABOLIC [id number] 07:33:00 Test Item Value Reference Range Interpretation [...] = 9.6 mg/dL 8.0-10.5 N CA) GLUCOSE [id number] 20:28:00 Test Item Value Reference Range Interpretation Comments GLUCOSE BEDSIDE (test 141 MG/DL 70-110 H Perfor med by certified code = GLUBED) grind operator at [facility] GLUCOSE [id number] 16:59:00 Test Item Value Reference Range Interpretation Comments GLUCOSE BEDSIDE (test 111 MG/DL 70-110 H Perfor med by certified code = GLUBED) grind operator at [facility] [id number] 16:06:00 Test Item Value Reference Range Interpretation Comments MAGNESIUM (test code = MAG) 1.92 mg/dL 1.80-2.40 N GLUCOSE [id number] 14:17:00 Test Item Value Reference Range Interpretation Comments GLUCOSE BEDSIDE (test 84 MG/DL 70-110 N Perfor med by certified code = GLUBED) grind operator at [facility] LIPID PROFILE (CORONARY RISK)2021-08-22 10:31:00 [...] (test code = LDL) NEAR OPTIM AL/ABOVE [id number] [id number] 89 HIGH>KE=097 GINGER Y HIGH*Guidelines provided by the National Choles terol EducationProgra m Adult Treatment Panel III TSH REFLEX TO [id number] 10:31:00 Test Item Value Reference Range Interpretation Comments TSH REFLEX TO FT4 (test code = 1.03 IU/mL 0.42-5.47 N TSHREFLEX) TROP-I HIGH [id number] 10:29:00 Test Item Value Reference Range Interpretation [...] These resu lts were obtained using Siemens AtellBalakam IM TnI Hreagent. Results from di fferent methodologies s hould not becompared to o ne another as quantitative results and URLs mayvary by method. HGBA1C%2021-08-22 10:28:00 Test Item Value Reference Range Interpretation Comments HGBA1C% (test code = HGBA1C%) 5.5 %A1C 4.8-6.0 N B-TYPE NATRIURETIC [id number] 07:01:00 Test Item Value Reference Range Interpretation Comments B-TYPE NATRIURETIC PEPTIDE (test 346.0 PG/ML 0-100 H code = BNP) BASIC METABOLIC [id number] 06:46:00 Test Item Value Reference Range Interpretation [...] 9.4 mg/dL 8.0-10.5 N CA) TROP-I HIGH [id number] 06:46:00 Test Item Value Reference Range Interpretation [...] These resu lts were obtained using Siemens Atellica IM TnI Hreagent. Results from di fferent methodologies s hould not becompared to o ne another as quantitative results and URLs mayvary by method. CBC W/AUTO [id number] 06:21:00 Test Item Value Reference Range Interpretation [...] NO = MDIFF) - XR CHEST 1 [id number] 00:00:00 [facility] 1950 Sex: M FAX: Jj Theodore DO [phone] [place]: [address]: REG Name: OLIVIA MONROY [facility] : 1950 Age/S: 70/M [address] [place] [address] Blvd Unit #: [id number] Loc: [place] [address] Phys: Jj Dyson Acct: [id number] Dis Date: Status: REG ER PHONE #: [phone] Exam Date: 08/22/2021620 FAX #: [phone] Reason: Chest Pain EXAMS: CPT CODE: [id number] XR CHEST 1 V 03687 PROCEDURE INFORMATION: Exam: XR Chest Exam date and time: 08/22/2021 6:04 AM Age: 70 years old Clinical indication: Other: Chest pain TECHNIQUE: Imaging protocol: XR of the chest. Views: 1 view. COMPARISON: No relevant prior studies available. FINDINGS: Lungs: Patchy bilateral airspace opacities predominate lung bases. Pleural spaces: Smal l bilateral pleural effusions are suspected. Heart/Mediastinum: Heart is enlarged. Mediastinum is normal. Pulmonary vessels are engorged. Bones/joints: No acute osseous findings. IMPRESSION: Constellation of findings most likely represent pulmonary edema and heart failure in the absence of fever or cough. Pneumonia can however have a similar imaging appearance. at 0629 Reported and signed by: Zion Álvarez M.D. CC: Jj Dyson DO Technologist: RT Luis(Isa) Trnscrd Date/Time/By: 08/22/2021 (628) : By: [email or web address] Orig Print D/T: S: 08/22/2021 (628) PAGE 1 Signed ReportPOCT-GLUCOSE [id number] 19:06:33 Test Item Value Reference Range Interpretation Comments POC-GLUCOSE METER 109 mg/dL 70-110 : TESTED A T [facility] (GALE) (test code = [place], 1538) 84759: Plant Accountant/Techni salma ID = [id number] for Ng Brenda sampson RAD, CHEST, 1 VIEW, NON [id number] 13:58:00Reason for exam:- >intubatedShould this be performed at the bedside?->Yes [facility] 1950 [...] Removal of feeding tube. Signed: Olivia Hunt Verified Date/Time: 07/18/2021 13:58:19 ReadingLocation: [facility] POCT- GLUCOSE [id number] 12:01:38 Test Item Value Reference Range Interpretation Comments POC-GLUCOSE METER 155 mg/dL 70-110 H : TESTED A T [facility] 6720 ([facility]) (test code = [facility] Isa [facility], 153) [address]27[address]: Plant Accountant/Techni salma ID = [id number] for MILE MONTEMAYOR POCT-GLUCOSE [id number] 06:05:22 Test Item Value Reference Range Interpretation Comments POC-GLUCOSE METER 71 mg/dL 70-110 : [facility] (test code = [place] [facility], 1538) [address]: Plant Accountant/Techni salma ID = [id number] for MSIB I, MNCEDISI [id number] 05:07:35 Test Item Value Reference Range Interpretation Comments MAGNESIUM (BEAKER) (test code = 1.9 mg/dL 1.6-2.6 627) Plant Accountant ID - DBHEPATIC FUNCTION [id number] 05:07:35 Test Item Value Reference Range Interpretation [...] (test code = 24 U/L 6-55 347) Plant Accountant ID - DBBASIC METABOLIC [id number] 05:07:34 Test Item Value Reference Range Interpretation [...] S NOT APPLICABLE FOR DIALYSIS PATIEN TS. Plant Accountant ID - DBBlood gas, [id number] 04:57:21 Test Item Value Reference Range Interpretation Comments pH, Rupert (test code = 7.43 7.32-7.42 H 2746-6) pCO2, Rupert (test code = 48 See_Comment [Aut omated message] 755) The system hdtMEDIA h generated this result transmit oziel reference range : 41 - 51 mm Hg. The reference range was not used to interpret this result as normal/abnormal . pO2, Rupert (test code = 51 See_Comment H [Auto mated message] 2705-2) The system hdtMEDIA h generated this result transmit oziel reference range : 25 - 40 mm Hg. The reference range was not used to interpret this result as normal/abnormal . O2 Sat, Rupert (test code 87.3 % 40.0-70.0 H = 2711-0) HCO3, Rueprt (test code = 31 mmol/L 21-29 H 75331-6) Base Excess, Rupert (test 6.2 mmol/L -2.0-3.0 H code = 1927-3) Patient Temperature 36.8 (test code = 8310-5) FIO2 (test code = 1819) 28 Lab Interpretation Abnormal (test code = 75976-4) [facility] gas, [id number] 04:57:21 Test Item Value Reference Range Interpretation Comments pH, Rupert (test code = 7.43 7.32-7.42 H 2746-6) pCO2, Rupert (test code = 48 See_Comment [Aut omated message] 755) The system [place] generated this result transmit oziel reference range : 41 - 51 mm Hg. The reference range was not used to interpret this result as normal/abnormal . pO2, Rupert (test code = 51 See_Comment H [Auto mated message] 2705-2) The system [place] generated this result transmit oziel reference range : 25 - 40 mm Hg. The reference range was not used to interpret this result as normal/abnormal . O2 Sat, Rupert (test code 87.3 % 40.0-70.0 H = 2711-0) HCO3, Rupert (test code = 31 mmol/L 21-29 H 50141-9) Base Excess, Rupert (test 6.2 mmol/L -2.0-3.0 H code = 1927-3) Patient Temperature 36.8 (test code = 8310-5) FIO2 (test code = 1819) 28 Lab Interpretation Abnormal (test code = 95383-8) [facility] GAS, [id number] 04:57:21 Test Item Value Reference Range Interpretation [...] 1819) 28.0 CBC W/PLT COUNT & AUTO [id number] 04:49:48 Test Item Value Reference Range Interpretation [...] PERCENT (BEAKER) (test code = 2801) POCT-GLUCOSE [id number] 23:59:06 Test Item Value Reference Range Interpretation Comments POC-GLUCOSE METER 80 mg/dL 70-110 : TESTED A T [facility] 6720 (BEAKER) (test code [facility], = 1538) 045[address]: Plant Accountant/Techni aslma ID = [id number] for Jeana asthon (contract), [facility] ED POCT-GLUCOSE [id number] 18:24:51 Test Item Value Reference Range Interpretation Comments POC-GLUCOSE METER 85 mg/dL 70-110 : TESTED A T [facility] 6720 (BEAKER) (test code = [facility], 1538) 90247: Plant Accountant/Techni salma ID = [id number] for MILE MONTEMAYOR POCT-GLUCOSE [id number] 12:12:22 Test Item Value Reference Range Interpretation Comments POC-GLUCOSE METER 147 mg/dL 70-110 H : TESTED A T [facility] 6720 (BEAKER) (test code = [facility], 1538) 61095: Plant Accountant/Techni salma ID = [id number] for IZABEL-KIRK HOWARDE RAD, CHEST, 1 VIEW, NON [id number] 10:13:00Reason for exam:- >intubatedShould this be performed at the bedside?->Yes [facility] : 1950 Sex: [...] MDReport Verified Date/Time: 07/17/2021 10:13:41 Reading Location: [facility] Radiology Reading Room BLOOD GAS, [id number] 06:03:50 Test Item Value Reference Range Interpretation [...] (test 37.0 code = 1818) BASIC METABOLIC [id number] 06:02:29 Test Item Value Reference Range Interpretation [...] S NOT APPLICABLE FOR DIALYSIS PATIEN TS. Plant Accountant ID Cory SEGOVIA [id number] 06:02:29 Test Item Value Reference Range Interpretation Comments MAGNESIUM (BEAKER) (test code = 2.0 mg/dL 1.6-2.6 627) Plant Accountant ID - JULIETTE LPOCT-GLUCOSE [id number] 05:29:55 Test Item Value Reference Range Interpretation Comments POC-GLUCOSE METER 211 mg/dL 70-110 H : TESTED A T [facility] 6720 (BEAKER) (test code = [place], 1538) 12680: Plant Accountant/Techni salma ID = [id number] for TYRA MARK CBC W/PLT COUNT & AUTO [id number] 05:28:26 Test Item Value Reference Range Interpretation [...] PERCENT (BEAKER) (test code = 2801) POCT-GLUCOSE [id number] 23:36:18 Test Item Value Reference Range Interpretation Comments POC-GLUCOSE METER 173 mg/dL 70-110 H : TESTED A T [facility] 6720 (BEAKER) (test code = [facility] Isa [facility], 1538) 17413: Plant Accountant/Techni salma ID = [id number] for TYAR MARK POCT-GLUCOSE [id number] 18:44:10 Test Item Value Reference Range Interpretation Comments POC-GLUCOSE METER 195 mg/dL 70-110 H : TESTED A T [facility] 6720 (BEAKER) (test code [facility], = 1538) 65973: Plant Accountant/Techni salma ID = [id number] for SUNG FINLEY, YULIA POCT-GLUCOSE [id number] 11:41:09 Test Item Value Reference Range Interpretation Comments POC-GLUCOSE METER 148 mg/dL 70-110 H : TESTED A T [facility] 6720 (BEAKER) (test code [facility], = 1538) 89431: Plant Accountant/Techni salma ID = [id number] for SUNG FINLEY, YULIA POCT-GLUCOSE [id number] 07:30:28 Test Item Value Reference Range Interpretation Comments POC-GLUCOSE METER 98 mg/dL 70-110 : TESTED A T [facility] 6720 (BEAKER) (test code = [facility] Isa [facility], 1538) 34269: Plant Accountant/Techni salma ID = [id number] for Pool e (contract, Cheri caldwella [id number] 06:20:29 Test Item Value Reference Range Interpretation Comments MAGNESIUM (BEAKER) 2.1 mg/dL 1.6-2.6 Specimen slightly (test code = 627) hemolyzed Plant Accountant ID - PIAYA LBASIC METABOLIC [id number] 06:20:29 Test Item Value Reference Range Interpretation [...] S NOT APPLICABLE FOR DIALYSIS PATIEN TS. Plant Accountant ID - PIAYA LHEPATIC FUNCTION [id number] 06:20:29 Test Item Value Reference Range Interpretation [...] Specimen slightly (test code = 347) hemolyzed Plant Accountant ID - JULIETET LCBC W/PLT COUNT & AUTO [id number] 05:46:14 Test Item Value Reference Range Interpretation [...] (BEAKER) (test code = 2801) BLOOD GAS, [id number] 05:43:55 Test Item Value Reference Range Interpretation [...] = 1818) RAD, CHEST, 1 VIEW, NON [id number] 03:58:00Reason for exam:- >intubatedShould this be performed at the bedside?->Yes [facility] 1950 Sex: MFINAL [...] Stable surgical changes.Additional findings: None. Signed: Jacque Anglin Verified Date/Time: :58:51 -GLUCOSE [id number] 23:53:14 Test Item Value Reference Range Interpretation Comments POC-GLUCOSE METER 77 mg/dL 70-110 : TESTED A T [facility] [address] (BEAKER) (test code = [place], 1538) 89365: Plant Accountant/Techni salma ID = [id number] for TISH DUBON POCT-GLUCOSE [id number] 23:08:13 Test Item Value Reference Range Interpretation Comments POC-GLUCOSE METER 89 mg/dL 70-110 : TESTED A T [facility] 6720 (BEAKER) (test code = [facility], 1538) 39449: Plant Accountant/Techni salma ID = [id number] for Pool e (Cheri glover POCT-GLUCOSE [id number] 17:08:48 Test Item Value Reference Range Interpretation Comments POC-GLUCOSE METER 99 mg/dL 70-110 : TESTED A T [facility] 6720 (BEAKER) (test code = [facility], 1538) 61401: Plant Accountant/Techni salma ID = [id number] for Sachin Whitt POCT-GLUCOSE [id number] 10:57:05 Test Item Value Reference Range Interpretation Comments POC-GLUCOSE METER 127 mg/dL 70-110 H : TESTED A T [facility] 6720 (BEAKER) (test code = [facility], 1538) 31158: Plant Accountant/Techni salam ID = [id number] for Ca Sachin lynn BASIC METABOLIC [id number] 06:49:02 Test Item Value Reference Range Interpretation [...] S NOT APPLICABLE FOR DIALYSIS PATIEN TS. Plant Accountant ID - JAKE [id number] 06:49:02 Test Item Value Reference Range Interpretation Comments MAGNESIUM (BEAKER) (test code = 2.1 mg/dL 1.6-2.6 627) Plant Accountant ID - JAKE MRAD, CHEST, 1 VIEW, NON [id number] 06:20:00Reason for exam:->intubatedShould this be performed at the bedside?->Yes [facility] : 1950 Sex: [...] Normal contours. Additional findings: None. Signed: Luke Pfeiffer MDReport Verified Date/Time: 07/15/2021 06:20:40 D GAS, [id number] 06:05:25 Test Item Value Reference Range Interpretation [...] = 1818) CBC W/PLT COUNT & AUTO [id number] 06:05:23 Test Item Value Reference Range Interpretation [...] PERCENT (BEAKER) (test code = 2801) POCT-GLUCOSE [id number] 05:29:51 Test Item Value Reference Range Interpretation Comments POC-GLUCOSE METER 124 mg/dL 70-110 H : TESTED A T [facility] 6720 (BEAKER) (test code = [facility], 1538) 33181: Plant Accountant/Techni salma ID = [id number] for UE JESSICA, CARMELINA POCT-GLUCOSE [id number] 00:22:15 Test Item Value Reference Range Interpretation Comments POC-GLUCOSE METER 161 mg/dL 70-110 H : TESTED A T [facility] 6720 (BEAKER) (test code [facility], = 1538) 76632: Plant Accountant/Techni salma ID = [id number] for Doeb bler, Tita POCT-GLUCOSE [id number] 23:55:42 Test Item Value Reference Range Interpretation Comments POC-GLUCOSE METER 169 mg/dL 70-110 H : TESTED A T [facility] 6720 (BEAKER) (test code = [facility], 1538) 43959: Plant Accountant/Techni salma ID = [id number] for UE JESSICA, CARMELINA POCT-GLUCOSE [id number] 20:25:20 Test Item Value Reference Range Interpretation Comments POC-GLUCOSE METER 179 mg/dL 70-110 H : TESTED A T [facility] 6720 (BEAKER) (test code [facility], = 1538) 84792: Plant Accountant/Techni salma ID = [id number] for Doeb bler, Tita POCT-GLUCOSE [id number] 19:00:51 Test Item Value Reference Range Interpretation Comments POC-GLUCOSE METER 173 mg/dL 70-110 H : TESTED A T [facility] 6720 (BEAKER) ([facility], = 1538) 60062: Plant Accountant/Techni salma ID = [id number] for Mayank Garcia, Gene maia POCT-GLUCOSE [id number] 12:37:10 Test Item Value Reference Range Interpretation Comments POC-GLUCOSE METER 190 mg/dL 70-110 H : TESTED A T [facility] 6720 (BESTU) (test code HAYDEE [facility], = 1538) 45692: Plant Accountant/Techni salma ID = [id number] for Mayank Garcia Gene maia MISCELLANEOUS LAB [id number] 09:37:51 Test Item Value Reference Range Interpretation Comments SCAN RESULT (test code = See scanned report [id number]) See scanned reportRAD, CHEST, 1 VIEW, NON [id number] 06:30:00Reason for exam:->intubatedShould this be performed at the bedside?->Yes [facility] 1950 [...] Stable surgical changes.Additional findings: None. Signed: Jacque Anglin Verified Date/Time: 07/14/2021 06:30:41 UM HEALTHEPATIC FUNCTION [id number] 05:58:39 Test Item Value Reference Range Interpretation [...] (test code = 31 U/L 6-55 347) Plant Accountant ID - PIAYA LBASIC METABOLIC [id number] 05:58:38 Test Item Value Reference Range Interpretation [...] S NOT APPLICABLE FOR DIALYSIS PATIEN TS. Plant Accountant ID - PIAYA [id number] 05:58:38 Test Item Value Reference Range Interpretation Comments MAGNESIUM (BEAKER) (test code = 2.0 mg/dL 1.6-2.6 627) Plant Accountant ID - PIAYA LPOCT-GLUCOSE [id number] 05:40:43 Test Item Value Reference Range Interpretation Comments POC-GLUCOSE METER 156 mg/dL 70-110 H : TESTED A T [facility] 6720 (BEAKER) (test code = [place], 1538) 94129: Plant Accountant/Techni salma ID = [id number] for TYRA MARK BLOOD GAS, [id number] 05:15:55 Test Item Value Reference Range Interpretation [...] = 1818) CBC W/PLT COUNT & AUTO [id number] 05:03:46 Test Item Value Reference Range Interpretation [...] PERCENT (BEAKER) (test code = 2801) POCT-GLUCOSE [id number] 23:48:08 Test Item Value Reference Range Interpretation Comments POC-GLUCOSE METER 165 mg/dL 70-110 H : TESTED A T [facility] 6720 (BEAKER) (test code = [facility], 153) 52506: Plant Accountant/Techni salma ID = [id number] for MS JESSIE, TYRA POCT-GLUCOSE [id number] 20:49:24 Test Item Value Reference Range Interpretation Comments POC-GLUCOSE METER 212 mg/dL 70-110 H : TESTED A T [facility] 6720 (BEAKER) (test code = [facility], 153) 14497: Plant Accountant/Techni salma ID = [id number] for DO BUSCHGUEVARAALYSSATISH POCT-GLUCOSE [id number] 18:02:13 Test Item Value Reference Range Interpretation Comments POC-GLUCOSE METER 188 mg/dL 70-110 H : TESTED A T [facility] 6720 ([place]) (test code = [place] [facility], 1538) 05736: Plant Accountant/Techni salma ID = [id number] for MILE MONTEMAYOR POCT-GLUCOSE [id number] 12:15:55 Test Item Value Reference Range Interpretation Comments POC-GLUCOSE METER 155 mg/dL 70-110 H : TESTED A T [facility] 6720 ([place]) (test code = [place] [facility], 1538) 09136: Plant Accountant/Techni salma ID = [id number] for MILE MONTEMAYOR RAD, CHEST, 1 VIEW, NON [id number] 05:26:00Reason for exam:- >intubatedShould this be performed at the bedside?->Yes [facility] : 1950 Sex: MFINAL REPORT RAD, CHEST, 1 VIEW, NON DEPT INDICATION: intubated COMPARISON: Priorday's exam FINDINGS: Portable frontal view of the chest. IMPRESSION: Support Lines: Stable. Lungs and pleura: Unchanged airspace and pleural opacities. No pneumothorax.Heart and mediastinum: Stable contours. Additional findings: None. Signed: Jacque Anglin Verified Date/Time: 205:26:55 POCT-GLUCOSE [id number] 05:14:35 Test Item Value Reference Range Interpretation Comments POC-GLUCOSE METER 175 mg/dL 70-110 H : [facility]) (test code = [place], 1538) [address]: Plant Accountant/Techni salma ID = [id number] for TYRA MARK BLOOD GAS, [id number] 03:33:37 Test Item Value Reference Range Interpretation [...] (test code = 1819) 21.0 BASIC METABOLIC [id number] 03:14:39 Test Item Value Reference Range Interpretation [...] S NOT APPLICABLE FOR DIALYSIS PATIEN TS. Plant Accountant ID - JAKE [id number] 03:14:39 Test Item Value Reference Range Interpretation Comments MAGNESIUM (BEAKER) (test code = 1.9 mg/dL 1.6-2.6 627) Plant Accountant BOOGIE - JAKE [facility]BC W/PLT COUNT & AUTO [id number] 02:58:37 Test Item Value Reference Range Interpretation [...] PERCENT (BEAKER) (test code = 2801) POCT-GLUCOSE [id number] 23:54:47 Test Item Value Reference Range Interpretation Comments POC-GLUCOSE METER 218 mg/dL 70-110 H : TESTED A T [facility] 6720 (BEAKER) (test code = [facility], 1538) 95418: Plant Accountant/Techni salma ID = [id number] for TYRA MARK POCT-GLUCOSE [id number] 21:07:00 Test Item Value Reference Range Interpretation Comments POC-GLUCOSE METER 239 mg/dL 70-110 H : TESTED A T [facility] 6720 (BEAKER) (test code = [facility], 1538) 10319: Plant Accountant/Techni salma ID = [id number] for Mely Jimenez POCT-GLUCOSE [id number] 17:43:49 Test Item Value Reference Range Interpretation Comments POC-GLUCOSE METER 145 mg/dL 70-110 H : TESTED A T [facility] 6720 (BEAKER) (test code = [facility], 1538) 60055: Plant Accountant/Techni salma ID = [id number] for MILE MONTEMAYOR POCT-GLUCOSE [id number] 11:54:46 Test Item Value Reference Range Interpretation Comments POC-GLUCOSE METER 205 mg/dL 70-110 H : TESTED A T [facility] 6720 (BEAKER) (test code = [facility], 1538) 47551: Plant Accountant/Techni salma ID = [id number] for IZABEL-KIRK HOWARDE UPEP 24 hour [id number] 09:35:15 Test Item Value Reference Range Interpretation Comments Scan Result (test code = see scanned result [id number]) BANDAR (test code = BANDAR) see scanned result [facility] [id number] 09:35:15 Test Item Value Reference Range Interpretation Comments SCAN RESULT (test code = see scanned result [id number]) see scanned resultRAD, CHEST, 1 VIEW, NON [id number] 08:53:00Reason for exam:->intubatedShould this be performed at the bedside?->Yes [facility] : 1950 Sex: [...] Sosa Verified Date/Time: 07/12/2021 08:53:29 Reading Location: [facility] Radiology Reading Room POCT-GLUCOSE [id number] 07:42:29 Test Item Value Reference Range Interpretation Comments POC-GLUCOSE METER 189 mg/dL 70-110 H : [facility] ([facility]ER[facility] (test code = [place], 1538) 20444: Plant Accountant/Techni salma ID = [id number] for MILE MONTEMAYOR HEPATIC FUNCTION [id number] 07:25:17 Test Item Value Reference Range Interpretation [...] (test code = 35 U/L 6-55 347) Plant Accountant ID - JAKE MBASIC METABOLIC [id number] 07:25:16 Test Item Value Reference Range Interpretation [...] S NOT APPLICABLE FOR DIALYSIS PATIEN TS. Plant Accountant ID - JAKE [id number] 07:25:16 Test Item Value Reference Range Interpretation Comments MAGNESIUM (BEAKER) (test code = 2.0 mg/dL 1.6-2.6 627) Plant Accountant BOOGIE JOSEPH MCBC W/PLT COUNT & AUTO [id number] 07:03:16 Test Item Value Reference Range Interpretation [...] (BEAKER) (test code = 2801) BLOOD GAS, [id number] 06:50:14 Test Item Value Reference Range Interpretation [...] (BEAKER) (test code = 1819) 40.0 POCT-GLUCOSE [id number] 00:09:59 Test Item Value Reference Range Interpretation Comments POC-GLUCOSE METER 212 mg/dL 70-110 H : TESTED A T [facility] 6720 (BEAKER) (test code = [place], 1538) 20511: Plant Accountant/Techni salma ID = [id number] for Mely Jimenez Blood Culture - Routine (Right Venipuncture)2021-07-11 19:00:58 Test Item Value Reference Range Interpretation Comments Result (test code = No growth in 5 days 6463-4) [facility] campusBLOOD [id number] 19:00:58 Test Item Value Reference Range Interpretation Comments CULTURE (BEAKER) (test No growth in 5 days code = 1095) BLOOD [id number] 19:00:57 Test Item Value Reference Range Interpretation Comments CULTURE (BEAKER) (test No growth in 5 days code = 1095) POCT-GLUCOSE [id number] 17:08:40 Test Item Value Reference Range Interpretation Comments POC-GLUCOSE METER 204 mg/dL 70-110 H : TESTED A T [facility] 6720 (BEAKER) (test code = [facility], 1538) 79754: Plant Accountant/Techni salma ID = [id number] for RENAE SHERMAN Serum [id number] 13:51:14 Test Item Value Reference Range Interpretation Comments IgA (test code = 388 mg/dL 63-484 2458-8) IgG (test code = 1042 mg/dL 540-1822 2465-3) IgM (test code = 89 mg/dL 22-293 2464-6) SERUM IT ID (test Serum immunophenotyping code = 3817) results are equivocal. The specimen will be sent out for additional confirmatory testing. The results will be reported in [facility]. Pathologist: Lynn Ewing M.D. (test code = 3801) BANDAR (test code = Plant Accountant ID Cory PORTILLO) [facility] [id number] 13:51:14 Test Item Value Reference Interpretation Comments Range IMMUNOGLOBULIN A 388 mg/dL 63-484 (IGA) (BEAKER) (test code = 639) IMMUNOGLOBULIN G 1042 mg/dL See_Comment [Automated (IGG) (BEAKER) message] The (test code = 427) system [facility] generated this result transmitted reference range: 540-1,822. The reference range was not used to interpret this result as normal/abnormal . IMMUNOGLOBULIN M 89 mg/dL 22-293 (IGM) (BEAKER) (test code = 638) SERUM IT ID Serum 6144(BEAKER) (test immunophenotyping code = 3817) results are equivocal. The specimen will be sent out for additional confirmatory testing. The results will be reported in [facility]. [facility]-PATHOLOGIST-"Mary Ewing [id number]" (PUNEET Daniel (test code = 3801) Plant Accountant BOOGIE JOSEPH MPROTEIN ELECTROPHORESIS, SERUM WITH REFLEX TO IMMUNOTYPING [...] Interpretation (test Total protein and code = 26771-3) albumin are decreased while the relative concentrations of alpha globulins are increased suggesting an acute phase response to infection, inflammation or tissue injury. Serum immunophenotyping ordered to exclude monoclonal gammopathy. Pathologist: (test Lynn Tamayolisa, code = 2616) M.D. Protein, Total (test 5.4 See_Comment L [Autom ated code = 2885-2) message] The system which generated this result transmitted reference range : 6.0 - 8.3 gm/dL . The reference range was not used to interpret this result as normal/abnormal . BANDAR (test code = Plant Accountant ID - AMY BANDAR) GOperator ID - ADM Lab Interpretation Abnormal (test code = 66097-9) [facility] campusPROTEIN ELECTROPHORESIS, SERUM WITH REFLEX TO [id number] 13:28:46 Test Item Value Reference Range Interpretation [...] Serum immunophenotyping ordered to exclude monoclonal gammopathy. EWEF-WFWQJSCZWMS-377 Lynn Ewing M.D. (BEAKER) (test code = 2616) PROTEIN TOTAL SERUM, 5.4 gm/dL 6.0-8.3 L SPEP (BEAKER) (test code = 2660) Plant Accountant ID - AMY GOperator ID - ADMPOCT-GLUCOSE [id number] 12:16:57 Test Item Value Reference Range Interpretation Comments POC-GLUCOSE METER 201 mg/dL 70-110 H : TESTED A T [facility] 6720 (BEAKER) (test code [facility], = 1538) 63984: Plant Accountant/Techni salma ID = [id number] for Alex Witt [facility] Sputum Culture + Gram [id number] 10:42:29 Test Item Value Reference Interpretation Comments [...] BANDAR) Lab Interpretation Abnormal (test code = 38135-2) [facility] + GRAM [id number] 10:42:29 Test Item Value Reference Range Interpretation [...] epithelial RESULT (BEAKER) cells (test code = 214238) GRAM STAIN No organisms seen RESULT (BEAKER) (test code = 314626) HEMOGLOBIN [id number] 10:06:03 Test Item Value Reference Range Interpretation [...] 5.7- 6.4% indicates increased risk for diabetes (prediabetes)."Plant Accountant ID - ADMOperator ID - ADMRAD, CHEST, 1 VIEW, NON [id number] 08:13:00Reason for exam:->intubatedShould this be performed at the bedside?->Yes [facility] 1950 [...] atelectasis with trace left-sided effusion. Signed: Kelvin Sosaeport Verified Date/Time: 07/11/2021 08:13:26 Reading Location: [facility] Radiology Reading Room POCT-GLUCOSE [id number] 05:47:36 Test Item Value Reference Range Interpretation Comments POC-GLUCOSE METER 168 mg/dL 70-110 H : TESTED A T [facility] 6720 (BEAKER) (test code = [place], 1538) 68472: Plant Accountant/Techni salma ID = [id number] for MS TYRA ROMAN [id number] 04:01:18 Test Item Value Reference Range Interpretation Comments MAGNESIUM (BEAKER) (test code = 2.2 mg/dL 1.6-2.6 627) Plant Accountant ID - DBBASIC METABOLIC [id number] 04:01:17 Test Item Value Reference Range Interpretation [...] S NOT APPLICABLE FOR DIALYSIS PATIEN TS. Plant Accountant ID - DBCBC W/PLT COUNT & AUTO [id number] 03:18:08 Test Item Value Reference Range Interpretation [...] (BEAKER) (test code = 2801) BLOOD GAS, [id number] 03:16:40 Test Item Value Reference Range Interpretation [...] (BEAKER) (test code = 1819) 21.0 POCT-GLUCOSE [id number] 00:14:28 Test Item Value Reference Range Interpretation Comments POC-GLUCOSE METER 210 mg/dL 70-110 H : TESTED A T [facility] 6720 (BEAKER) (test code = [facility], 1538) 70557: Plant Accountant/Techni salma ID = [id number] for MS GIORGIO ROMANI POCT-GLUCOSE [id number] 21:05:00 Test Item Value Reference Range Interpretation Comments POC-GLUCOSE METER 192 mg/dL 70-110 H : TESTED A T [facility] 6720 (BEAKER) (test code = [facility] [employer] [facility], 1538) 82064: Plant Accountant/Techni salma ID = [id number] for Ez enwugo, Cynthia POCT-GLUCOSE [id number] 17:39:14 Test Item Value Reference Range Interpretation Comments POC-GLUCOSE METER 200 mg/dL 70-110 H : TESTED A T [facility] 6720 (BEAKER) (test code = [facility], 1538) 38371: Plant Accountant/Techni salma ID = [id number] for RUBENS JIMENEZ (V), TIMO POCT-GLUCOSE [id number] 14:23:15 Test Item Value Reference Range Interpretation Comments POC-GLUCOSE METER 119 mg/dL 70-110 H : TESTED A T [facility] 6720 ([facility]) (test code HAYDEE [facility], = 1538) 53557: Plant Accountant/Techni salma ID = [id number] for Alyssa alfredo (contract), Alu sine RAD, ABDOMEN/KUB, 1 VIEW [id number] 13:27:00Reason for exam:->Corpak [facility] : 1950 [...] study. Signed: Kelvin Sosa Verified Date/Time: 07/10/2021 13:27:37 Reading Location: [facility] Radiology Reading Room RAD, ABDOMEN/KUB, 1 VIEW [id number] 12:09:00Reason for exam:->Feeding tube placementMELY [facility] : 1950 Sex: MFINAL REPORT Exam: RAD, ABDOMEN/KUB, 1 VIEW APDate: 07/10/2021 12:08 PM Indication:Feeding tube placement COMPARISON: 07/10/2021 DISCUSSION/IMPRESSION: Enteric tube in place with distal tip projecting over the gastric fundus. Nonspecific nonobstructive bowel gas pattern. No evidence of free air within the limitations of this study. Signed: Kelvin Sosa Verified Date/Time: 07/10/2021 12:09:08 Reading Location: [facility] Radiology Reading Room HEMOGLOBIN A1C 2021-07-10 12:06:24 [...] 5.7- 6.4% indicates increased risk for diabetes (prediabetes)."Plant Accountant ID - ADMPOCT- GLUCOSE [id number] 11:28:56 Test Item Value Reference Range Interpretation Comments POC-GLUCOSE METER 76 mg/dL 70-110 : TESTED A T [facility] 6720 (GAEL) (test code = [facility], 1538) 78256: Plant Accountant/Techni salma ID = [id number] for JONAH VIZCARRA (V), TIMO POCT-GLUCOSE [id number] 09:20:56 Test Item Value Reference Range Interpretation Comments POC-GLUCOSE METER 77 mg/dL 70-110 : TESTED A T [facility] 6720 (BEAKER) (test code = [facility], 1538) 94145: Plant Accountant/Techni salma ID = [id number] for JONAH VIZCARRA (V), TIMO POCT-GLUCOSE [id number] 09:17:18 Test Item Value Reference Range Interpretation Comments POC-GLUCOSE METER 98 mg/dL 70-110 : TESTED A T [facility] 6720 (GALE) (test code = [facility], 1538) 14701: Plant Accountant/Techni salma ID = [id number] for Nora craft Chisom [id number] 07:27:59 Test Item Value Reference Range Interpretation Comments PHOSPHORUS (SPAKER) (test code = 3.1 mg/dL 2.3-4.7 604) Plant Accountant ID - DBRAD, ABDOMEN/KUB, 1 VIEW [id number] 04:21:00Reason for exam:- >Corpak placement [facility] : 1950 Sex: MFINAL REPORT TECHNIQUE: Supine views of the abdomen. INDICATION: Corpak placement. COMPARISON: 07/03/2021 FINDINGS/IMPRESSION: The feeding tube coils within the gastric fundus before terminating within the distal gastric body. Otherwise, no significant interval change. Signed: Jozef,Amber MDReport Verified Date/Time: 07/10/2021 04:21:46 UM HEALTHEPATIC FUNCTION [id number] 04:17:49 Test Item Value Reference Range Interpretation [...] (test code = 50 U/L 6-55 347) Plant Accountant ID - [id number] 04:17:48 Test Item Value Reference Range Interpretation Comments MAGNESIUM (BEAKER) (test code = 2.2 mg/dL 1.6-2.6 627) Plant Accountant ID - ADMINBASIC METABOLIC [id number] 04:17:47 Test Item Value Reference Range Interpretation [...] S NOT APPLICABLE FOR DIALYSIS PATIEN TS. Plant Accountant ID - ADMINCBC W/PLT COUNT & AUTO [id number] 04:01:01 Test Item Value Reference Range Interpretation [...] = 2801) RAD, CHEST, 1 VIEW, NON [id number] 03:57:00Reason for exam:- >intubatedShould this be performed at the bedside?->Yes [facility] : 1950 Sex: MFINAL REPORT RAD, CHEST, 1 VIEW, NON DEPT INDICATION: intubated COMPARISON: Priorday's exam FINDINGS: Portable frontal view of the chest. IMPRESSION: Support Lines: Stable. Lungs and pleura: No focal consolidation or sizable effusion. No pneumothorax. Heart and mediastinum: Stable contours. Additional findings: None. Signed: Amber Haskins [facility] Verified Date/Time: 07/10/2021 03:57:52 BLOOD GAS, [id number] 03:54:51 Test Item Value Reference Range Interpretation [...] (BEAKER) (test 37.0 code = 1818) POCT-GLUCOSE [id number] 00:49:23 Test Item Value Reference Range Interpretation Comments POC-GLUCOSE METER 149 mg/dL 70-110 H : TESTED A T [facility] 6720 (BEAKER) (test code = [facility], 1538) 26668: Plant Accountant/Techni salma ID = [id number] for Ez enwugo, Cynthia POCT-GLUCOSE [id number] 21:17:55 Test Item Value Reference Range Interpretation Comments POC-GLUCOSE METER 159 mg/dL 70-110 H : TESTED A T [facility] 6720 (BEAKER) (test code = [facility], 1538) 98763: Plant Accountant/Techni salma ID = [id number] for Ez enwugo, Cynthia POCT-GLUCOSE [id number] 17:20:58 Test Item Value Reference Range Interpretation Comments POC-GLUCOSE METER 202 mg/dL 70-110 H : TESTED A T [facility] 6720 (BEAKER) (test code = [facility], 1538) 89226: Plant Accountant/Techni salma ID = [id number] for Kuldeep young (contract), George id BLOOD [id number] 13:01:22 Test Item Value Reference Range Interpretation Comments CULTURE (BEAKER) (test No growth in 5 days code = 1095) BLOOD [id number] 13:01:21 Test Item Value Reference Range Interpretation Comments CULTURE (BEAKER) (test No growth in 5 days code = 1095) The specimen volume collected for this blood culture was below the optimum (10 mL per bottle or 20 mL total). Use of lower volumes may adversely affect recovery and/or detection times of some organisms.POCT-GLUCOSE [id number] 11:26:51 Test Item Value Reference Range Interpretation Comments POC-GLUCOSE METER 226 mg/dL 70-110 H : TESTED A T [facility] 6720 (BEAKER) (test code = [facility], 1538) 46300: Plant Accountant/Techni salma ID = [id number] for Kuldeep young (contract), George id POCT-GLUCOSE [id number] 07:25:29 Test Item Value Reference Range Interpretation Comments POC-GLUCOSE METER 243 mg/dL 70-110 H : TESTED A T [facility] 6720 (BEAKER) (test code = [facility], 1538) 32728: Plant Accountant/Techni salma ID = [id number] for Ez enwugoMelyCynthia [id number] 06:15:43 Test Item Value Reference Range Interpretation Comments MAGNESIUM (BEAKER) (test code = 2.4 mg/dL 1.6-2.6 627) Plant Accountant ID - DBBASIC METABOLIC [id number] 06:15:42 Test Item Value Reference Range Interpretation [...] S NOT APPLICABLE FOR DIALYSIS PATIEN TS. Plant Accountant ID - DBCBC W/PLT COUNT & AUTO [id number] 06:01:19 Test Item Value Reference Range Interpretation [...] (BEAKER) (test code = 2801) BLOOD GAS, [id number] 05:48:48 Test Item Value Reference Range Interpretation [...] 1819) 100.0 RAD, CHEST, 1 VIEW, NON [id number] 03:25:00Reason for exam:- >intubatedShould this be performed at the bedside?->Yes [facility] : 1950 Sex: MFINAL REPORT RAD, CHEST, 1 VIEW, NON DEPT INDICATION: intubated COMPARISON: Priorday's exam FINDINGS: Portable frontal view of the chest. IMPRESSION: Support Lines: Stable feeding tube Lungs and pleura: No focal consolidation or sizable effusion. No pneumothorax. Heart and mediastinum: Stable contours. Additional findings: None. Signed: Amber Haskins Verified Date/Time: 07/09/2021 03:25:21 POCT-GLUCOSE [id number] 01:38:19 Test Item Value Reference Range Interpretation Comments POC-GLUCOSE METER 183 mg/dL 70-110 H : TESTED A T [facility] 6720 (BEAKER) (test code = [facility], 1538) 39552: Plant Accountant/Techni salma ID = [id number] for Ez enwugo, Cynthia POCT-GLUCOSE [id number] 21:07:11 Test Item Value Reference Range Interpretation Comments POC-GLUCOSE METER 179 mg/dL 70-110 H : TESTED A T [facility] 6720 (BEAKER) (test code = [facility], 1538) 93197: Plant Accountant/Techni salma ID = [id number] for Ez enwugo, Cynthia POCT-GLUCOSE [id number] 16:54:11 Test Item Value Reference Range Interpretation Comments POC-GLUCOSE METER 135 mg/dL 70-110 H : TESTED A T [facility] 6720 (BEAKER) (test code = [facility], 1538) 34638: Plant Accountant/Techni salma ID = [id number] for Shiv Sawyer (contract), She adelita BASIC METABOLIC [id number] 13:39:54 Test Item Value Reference Range Interpretation [...] 358) GLUCOSE RANDOM 252 mg/dL 70-105 H (BEAKER) (test code = 652) CALCIUM (BEAKER) 9.0 mg/dL 8.4-10.2 (test code = 697) EGFR (BEAKER) (test 76 mL/min/1.73 ESTIMA OZIEL GFR IS code = 1092) sq m NOT ACCURATE CREATININE CLEARANCE IN PREDICTING GLOMERULAR FILTRATION RATE . ESTIMATED GFR I S NOT APPLICABLE FOR DIALYSIS PATIEN TS. Plant Accountant ID - JAKE MPOCT-GLUCOSE [id number] 11:51:17 Test Item Value Reference Range Interpretation Comments POC-GLUCOSE METER 241 mg/dL 70-110 H : Notified RN/MD: (BEAKER) (test code = TESTED AT [facility] 6720 1538) [facility], [address]82: Plant Accountant/Techni salma ID = [id number] for VIOLA BARRETT Ciecllnjypvgp8757-40-88 09:10:53 Test Item Value Reference Range Interpretation Comments Procalcitonin (test code = 0.06 ng/mL <0.05 H 07813-8) BANDAR (test code = BANDAR) SEPSIS RISK (ng/mL)Low: 0.05-0.50Intermedia te: 0.51-2.00High: >=2.01 Lab Interpretation (test Abnormal code = 42092-8) [facility] campusMosyapCzvmbltjbbzcw5431-44-02 09:10:53 Test Item Value Reference Range Interpretation Comments Procalcitonin (test code = 0.06 ng/mL <0.05 H 17106-3) BANDAR (test code = BANDAR) SEPSIS RISK (ng/mL)Low: 0.05-0.50Intermedia te: 0.51-2.00High: >=2.01 Lab Interpretation (test Abnormal code = 41708-0) [facility] campusTbpmpvWIYUVFUDANVYD8348-72-84 09:10:53 Test Item Value Reference Range Interpretation Comments PROCALCITONIN (BEAKER) (test code 0.06 ng/mL <0.05 H = 3036) SEPSIS RISK (ng/mL)Low: 0.05-0.50Intermediate: 0.51-2.00High: >=2.01Lactic acid, [id number] 08:38:53 Test Item Value Reference Range Interpretation Comments Lactate, Venous (test code 1.07 mmol/L 0.50-2.20 = 2872) BANDAR (test code = BANDAR) Plant Accountant ID - JAKE M Lab Interpretation (test Normal code = 05022-2) [facility] campusLactic acid, [id number] 08:38:53 Test Item Value Reference Range Interpretation Comments Lactate, Venous (test code 1.07 mmol/L 0.50-2.20 = 2872) BANDAR (test code = BANDAR) Plant Accountant ID - JAKE M Lab Interpretation (test Normal code = 90830-0) [facility] campusLACTIC ACID, [id number] 08:38:53 Test Item Value Reference Range Interpretation Comments LACTATE BLOOD VENOUS (2) (BEAKER) 1.07 mmol/L 0.50-2.20 (test code = 2872) Plant Accountant ID - JAKE COOKUTUM CULTURE + GRAM [id number] 08:35:07 Test Item Value Reference Interpretation Comments [...] >25 epithelial (BEAKER) (test code = cells 661488) GRAM STAIN RESULT <1+ gram positive (BEAKER) (test code = rods 178745) GRAM STAIN RESULT 1+ gram positive (BEAKER) (test code = cocci in clusters 765757) GRAM STAIN RESULT <1+ yeast with (BEAKER) (test code = pseudohyphae 302381) GRAM STAIN RESULT <1+ gram positive (BEAKER) (test code = cocci in pairs 136287) No Normal respiratory ignacia presentRAD, CHEST, 1 VIEW, NON [id number] 07:54:00Reason for exam:->intubatedShould this be performed at the bedside?->[facility] : 1950 Sex: MFINAL [...] Stable contours. Additional findings: None. Signed: Luke Pfeiffer Verified Date/Time: 07/08/2021 07:54:07 POCT-GLUCOSE [id number] 05:15:15 Test Item Value Reference Range Interpretation Comments POC-GLUCOSE METER 180 mg/dL 70-110 H : TESTED A T [facility] 6720 (BEAKER) (test code = [facility]REE[facility], 1538) 43453: Plant Accountant/Techni salma ID = [id number] for Sarah albarran (contract)Aníbal ae HEPATIC FUNCTION [id number] 04:27:32 Test Item Value Reference Range Interpretation [...] (test code = 37 U/L 6-55 347) Plant Accountant ID - YNEBLORVIUMGRX2361-44-30 04:27:31 Test Item Value Reference Range Interpretation Comments MAGNESIUM (BEAKER) (test code = 2.2 mg/dL 1.6-2.6 627) Plant Accountant ID - ADMINBASIC METABOLIC [id number] 04:27:30 Test Item Value Reference Range Interpretation [...] S NOT APPLICABLE FOR DIALYSIS PATIEN TS. Plant Accountant ID - ADMINBLOOD GAS, [id number] 03:31:57 Test Item Value Reference Range Interpretation [...] FIO2 (BEAKER) (test code = 1819) 32.0 [id number] 03:28:57 Test Item Value Reference Range Interpretation Comments PTT (test code = 63.9 See_Comment H [Automated message] 09858-6) The system [employer] generated this result transmitted ref erence range: 22.5 - 3 6.0 seconds. The reference range was not used to int erpret this result as normal/abnormal . Lab Interpretation (test Abnormal code = 66396-9) [facility] campusaPTT2022-03-05 03:28:57 Test Item Value Reference Range Interpretation Comments PTT (test code = 63.9 See_Comment H [Automated message] 72561-1) The system [employer] generated this result transmitted ref erence range: 22.5 - 3 6.0 seconds. The reference range was not used to int erpret this result as normal/abnormal . Lab Interpretation (test Abnormal code = 41680-1) [facility] campusAPTT2022-03-05 03:28:57 Test Item Value Reference Range Interpretation Comments PARTIAL THROMBOPLASTIN TIME 63.9 seconds 22.5-36.0 H (BEAKER) (test code = 760) CBC W/PLT COUNT & AUTO [id number] 03:14:34 Test Item Value Reference Range Interpretation [...] PERCENT (BEAKER) (test code = 2801) POCT-GLUCOSE [id number] 23:27:59 Test Item Value Reference Range Interpretation Comments POC-GLUCOSE METER 200 mg/dL 70-110 H : TESTED A T [facility] 6720 (BEAKER) (test code = [facility] [employer] [facility], 1538) 46[address]: Plant Accountant/Techni salma ID = [id number] for Sarah avis (contract) Aníbal juve POCT-GLUCOSE [id number] 21:20:38 Test Item Value Reference Range Interpretation Comments POC-GLUCOSE METER 229 mg/dL 70-110 H : TESTED A T [facility] 6720 (BEAKER) (test code = [facility], 1538) 17016: Plant Accountant/Techni salma ID = [id number] for Franchesca Reyna POCT-GLUCOSE [id number] 16:34:29 Test Item Value Reference Range Interpretation Comments POC-GLUCOSE METER 134 mg/dL 70-110 H : [facility] [facility] (GALE) (test code = [place], 1538) [address]: Plant Accountant/Techni salma ID = [id number] for IB RAHIM, SERKALEM CT, SINUS, WITH IV [id number] 14:42:00Unlisted Reason for Exam - Click Yes and Enter Reason Below->No [facility] 1950 [...] by imaging. Right nasogastric tube. Signed: Luke Pfeiffereport Verified Date/Time: 07/07/2021 14:42:25 EEG W VID 12-26 HR CONTINUOUS MONITORING (VEEG)2021-07-07 13:47:00Reason for exam:->seizure [facility] 1950 [facility] NAME: Olivia Monroy EE DATE(s) OF EE07/06/21-07/07/21 DATE OF REPORT: 07/07/21 Start time: 3:18 PM on 07/06/21 Stop time: 12:59 PM on 07/07/21 ICD-10: R41.82 CPT Code: 11072 HISTORY: 70 yo man with HTN, DM, CHF, and CAD s/p CABG who was admitted to OSH for wide complex tachycardia requiring cardioversion and acute confusion. MEDICATIONS LAURO T COULD AFFECT EEG: no anti-seizure medications. TECHNICAL SUMMARY: [facility]G recorded with 32 input channels [...] events or electrographic seizures were recorded. Mykel Adan MD, PhD Clinical Neurophysiology/Epilepsy Attending TSH/FREE T4 IF [id number] 13:24:33 Test Item Value Reference Range Interpretation Comments THYROID STIMULATING HORMONE 1.072 uIU/mL 0.350-4.940 (BEAKER) (test code = 772) Plant Accountant ID - EMILIO [id number] 13:10:31 Test Item Value Reference Range Interpretation Comments PARTIAL THROMBOPLASTIN TIME 64.8 seconds 22.5-36.0 H (BEAKER) (test code = 760) BASIC METABOLIC [id number] 13:04:52 Test Item Value Reference Range Interpretation [...] 358) GLUCOSE RANDOM 156 mg/dL 70-105 H (BEAKER) (test code = 652) CALCIUM (BEAKER) 9.0 mg/dL 8.4-10.2 (test code = 697) EGFR (BEAKER) (test 80 mL/min/1.73 ESTIMA OZIEL GFR IS code = 1092) sq m NOT ACCURATE CREATININE CLEARANCE IN PREDICTING GLOMERULAR FILTRATION RATE . ESTIMATED GFR I S NOT APPLICABLE FOR DIALYSIS PATIEN TS. Plant Accountant ID - AAHAMIDHEMOGLOBIN [id number] 11:45:18 Test Item Value Reference Range Interpretation Comments HEMOGLOBIN A1C 6.8 % See_Comment H [Automated m essage] ELECTROPHORESIS (BEAKER) The system which (test code = 3811) generated this result transmitted ref erence range: <=5.6%. The reference range was not used to int erpret this result as normal/abnormal . "The A1c is measured using a [facility]-certified method. HbA1c value equal to or greater than 6.5% as thediagnosis cutoff for diabetes. An HbA1c value of 5.7- 6.4% indicates increased risk for diabetes (prediabetes)."Plant Accountant ID - ADMPOCT- GLUCOSE [id number] 11:20:35 Test Item Value Reference Range Interpretation Comments POC-GLUCOSE METER 173 mg/dL 70-110 H : TESTED A T [facility] 6720 (FanBread) (test code = [facility], 1538) 37934: Plant Accountant/Techni salma ID = [id number] for IB RAHIM, S[place]ALEM POCT-GLUCOSE [id number] 07:34:43 Test Item Value Reference Range Interpretation Comments POC-GLUCOSE METER 187 mg/dL 70-110 H : TESTED A T [facility] 6720 (FanBread) (test code = [facility], 1538) 99030: Plant Accountant/Techni salma ID = [id number] for IB RAHIM, SERKALEM POCT-GLUCOSE [id number] 06:06:43 Test Item Value Reference Range Interpretation Comments POC-GLUCOSE METER 199 mg/dL 70-110 H : TESTED A T [facility] 6720 (FanBread) (test code [facility], = 1538) 99534: Plant Accountant/Techni salma ID = [id number] for SUGU , SHEENAMOL RAD, CHEST, 1 VIEW, NON [id number] 04:40:00Reason for exam:- >intubatedShould this be performed at the bedside?->Yes [facility] RAVINDER : 1950 Sex: MFINAL REPORT RAD, CHEST, 1 VIEW, NON DEPT INDICATION: intubated COMPARISON: Priorday's exam FINDINGS: Portable frontal view of the chest. IMPRESSION: Support Lines: Stable. Lungs and pleura: No significant change in bilateral hazy interstitial and airspace opacities. No new consolidation. No pneumothorax. Heart and mediastinum: Stable contours. Additional findings: None. Signed: Amber Haskins MDReport Verified Date/Time: 07/07/2021 04:40:27 BLOOD GAS, [id number] 04:12:20 Test Item Value Reference Range Interpretation [...] FIO2 (BEAKER) (test code = 1819) 44.0 [id number] 03:53:27 Test Item Value Reference Range Interpretation Comments MAGNESIUM (BEAKER) (test code = 2.1 mg/dL 1.6-2.6 627) Plant Accountant ID - EMILIO WBASIC METABOLIC [id number] 03:53:26 Test Item Value Reference Range Interpretation [...] S NOT APPLICABLE FOR DIALYSIS PATIEN TS. Plant Accountant ID - EMILIO [id number] 03:49:14 Test Item Value Reference Range Interpretation Comments PARTIAL THROMBOPLASTIN TIME 55.9 seconds 22.5-36.0 H (BEAKER) (test code = 760) CBC W/PLT COUNT & AUTO [id number] 03:29:05 Test Item Value Reference Range Interpretation [...] 0-1 PERCENT (BEAKER) (test code = 2801) [id number] 02:46:19 Test Item Value Reference Range Interpretation Comments PARTIAL THROMBOPLASTIN TIME > seconds 22.5-36.0 HH (BEAKER) (test code = 760) POCT-GLUCOSE [id number] 02:19:48 Test Item Value Reference Range Interpretation Comments POC-GLUCOSE METER 185 mg/dL 70-110 H : TESTED A T [facility] 6720 (BEAKER) (test code [facility], = 1538) 30728: Plant Accountant/Techni salma ID = [id number] for SUGU , SHEENAMOL [id number] 19:14:23 Test Item Value Reference Range Interpretation Comments PARTIAL THROMBOPLASTIN TIME 87.8 seconds 22.5-36.0 H (BEAKER) (test code = 760) BASIC METABOLIC [id number] 18:37:48 Test Item Value Reference Range Interpretation [...] S NOT APPLICABLE FOR DIALYSIS PATIEN TS. Plant Accountant ID - DBPOCT-GLUCOSE [id number] 18:01:50 Test Item Value Reference Range Interpretation Comments POC-GLUCOSE METER 191 mg/dL 70-110 H : TESTED A T [facility] 6720 (BEAKER) (test code = [place], 1538) 21671: Plant Accountant/Techni salma ID = [id number] for DE NNIS, NAZARIO RAD, CHEST, 1 VIEW, NON [id number] 17:53:00Reason for exam:- >hypoxemiaShould this be performed at the bedside?->Yes [facility] : 1950 [...] of the bibasilar pulmonary opacities.. Signed: Jocelyn Castroepgerardo Verified Date/Time: 07/06/2021 17:53:12 Reading Location: [address] Reading Room LACTIC ACID, [id number] 16:23:18 Test Item Value Reference Range Interpretation Comments LACTATE BLOOD VENOUS (2) (BEAKER) 0.78 mmol/L 0.50-2.20 (test code = 2872) Plant Accountant ID - DBBLOOD GAS, [id number] 16:04:18 Test Item Value Reference Range Interpretation [...] (BEAKER) (test 37.0 code = 1818) POCT-GLUCOSE [id number] 12:40:11 Test Item Value Reference Range Interpretation Comments POC-GLUCOSE METER 149 mg/dL 70-110 H : TESTED A T [facility] 6720 (BEAKER) (test code = [place], 1538) 00147: Plant Accountant/Techni salma ID = [id number] for NAZARIO LOW [id number] 12:34:35 Test Item Value Reference Range Interpretation Comments PARTIAL THROMBOPLASTIN TIME 83.7 seconds 22.5-36.0 H (BEAKER) (test code = 760) RAD, CHEST, 1 VIEW, NON [id number] 08:17:00Reason for exam:- >intubatedShould this be performed at the bedside?->Yes [facility] : 1950 Sex: [...] appropriate clinical setting.Bibasilar atelectasis. Signed: Kelvin Sosa MDReport Verified Date/Time: 07/06/2021 08:17:28 Reading Location: [facility] Radiology Reading Room HEPATIC FUNCTION [id number] 06:39:57 Test Item Value Reference Range Interpretation [...] (test code = 46 U/L 6-55 347) Plant Accountant ID - AMY [id number] 06:39:56 Test Item Value Reference Range Interpretation Comments MAGNESIUM (BEAKER) (test code = 2.2 mg/dL 1.6-2.6 627) Plant Accountant ID - AMY GBASIC METABOLIC [id number] 06:39:55 Test Item Value Reference Range Interpretation [...] S NOT APPLICABLE FOR DIALYSIS PATIEN TS. Plant Accountant ID - AMY [id number] 06:03:39 Test Item Value Reference Range Interpretation Comments PARTIAL THROMBOPLASTIN TIME 56.0 seconds 22.5-36.0 H (BEAKER) (test code = 760) POCT-GLUCOSE [id number] 05:50:56 Test Item Value Reference Range Interpretation Comments POC-GLUCOSE METER 137 mg/dL 70-110 H : TESTED A T [facility] 6720 (BEAKER) (test code = [place], 1538) 686[address]: Plant Accountant/Techni salma ID = [id number] for TISH FOY CBC W/PLT COUNT & AUTO [id number] 05:49:52 Test Item Value Reference Range Interpretation [...] PERCENT (BEAKER) (test code = 2801) POCT-GLUCOSE [id number] 23:45:37 Test Item Value Reference Range Interpretation Comments POC-GLUCOSE METER 127 mg/dL 70-110 H : TESTED A T [facility] 6720 (BEAKER) (test code = [facility], 1538) 76590: Plant Accountant/Techni salma ID = [id number] for TISH FOY POCT-GLUCOSE [id number] 17:59:18 Test Item Value Reference Range Interpretation Comments POC-GLUCOSE METER 118 mg/dL 70-110 H : TESTED A T [facility] 6720 (BEAKER) (test code = [facility], 1538) 26829: Plant Accountant/Techni salma ID = [id number] for MILE MONTEMAYOR POCT-GLUCOSE [id number] 11:01:13 Test Item Value Reference Range Interpretation Comments POC-GLUCOSE METER 156 mg/dL 70-110 H : TESTED A T [facility] 6720 (BEAKER) (test code = [facility], 1538) 77400: Plant Accountant/Techni salma ID = [id number] for IB RAHIM, SERKALEM BLOOD [id number] 09:00:45 Test Item Value Reference Range Interpretation Comments CULTURE (BEAKER) (test No growth in 5 days code = 1095) POCT-GLUCOSE [id number] 08:51:54 Test Item Value Reference Range Interpretation Comments POC-GLUCOSE METER 139 mg/dL 70-110 H : TESTED A T [facility] 6720 (BEAKER) (test code = [facility], 1538) 08092: Plant Accountant/Techni salma ID = [id number] for IB RAHIM, SERKALEM RAD, CHEST, 1 VIEW, NON [id number] 08:43:00Reason for exam:- >intubatedShould this be performed at the bedside?->Yes [facility] 1950 Sex: MFINAL REPORT Exam: RAD, CHEST, 1 VIEW, NON DEPTDate: 07/05/2021 8:39 AM Indication:intubatedComparison: 07/04/2021 FINDINGS: Lines/Tubes/Devices: Dobbhoff tube in place seen looping within the gastric lumen distal tip projecting near the GE junction. Status post sternotomy. Lungs/pleura:Borderline lung volumes. Interstitial prominence. Bibasilar airspace opacities. Scattered patchy nickie ateral airspace opacities. No pneumothorax. No significant effusions. Heart/Mediastinum:Unchanged Bones/Soft Tissues: No acute osseous abnormality. Upper abdomen: Unremarkable. IMPRESSION:Dobbhoff tubeas above.Borderline lung volumes.Persistent interstitial prominence, interstitial edema.Bibasilar air space opacities, likely atelectasis.Scattered patchy bilateral airspace opacities may represent edema versus multifocal infectious process. Signed: Kelvin Sosa Verified Date/Time: 07/05/2021 08:43:47 Reading Location: [facility] Radiology Reading Room [id number] 07:15:30 Test Item Value Reference Range Interpretation Comments PARTIAL THROMBOPLASTIN TIME 66.6 seconds 22.5-36.0 H (BEAKER) (test code = 760) [id number] 04:44:24 Test Item Value Reference Range Interpretation Comments MAGNESIUM (BEAKER) (test code = 2.1 mg/dL 1.6-2.6 627) Plant Accountant ID - JAKE MBASIC METABOLIC [id number] 04:44:23 Test Item Value Reference Range Interpretation [...] S NOT APPLICABLE FOR DIALYSIS PATIEN TS. Plant Accountant ID - JAKE MCBC W/PLT COUNT & AUTO [id number] 04:36:31 Test Item Value Reference Range Interpretation [...] (BEAKER) (test code = 2801) Blood gas, [id number] 04:27:09 Test Item Value Reference Range Interpretation Comments pH, Arterial (test code 7.50 7.35-7.45 H = 2744-1) pCO2, Arterial (test 41 See_Comment [Autom ated message] code = 2019-8) The system Amind generated this result transmit oziel reference range : 35 - 45 mm Hg. The reference range was not used to interpret this result as normal/abnormal . pO2, Arterial (test 107 See_Comment H [Automa oziel message] code = 2703-7) The system Amind generated this result transmit oziel reference range : 80 - 90 mm Hg. The reference range was not used to interpret this result as normal/abnormal . O2 Sat, Arterial (test 98.1 % 96.0-97.0 H code = 3008-6) HCO3, Arterial (test 31 mmol/L 21-29 H code = 1960-4) Base Excess, Arterial 7.2 mmol/L -2.0-3.0 H (test code = 1925-7) Patient Temperature 38.0 (test code = 8310-5) FIO2 (test code = 1819) 21 Lab Interpretation Abnormal (test code = 40035-1) [facility], [id number] 04:27:09 Test Item Value Reference Range Interpretation [...] (BEAKER) (test code = 1819) 21.0 POCT-GLUCOSE [id number] 03:46:20 Test Item Value Reference Range Interpretation Comments POC-GLUCOSE METER 149 mg/dL 70-110 H : TESTED A T [facility] 6720 (BEAKER) (test code = [facility] [employer] [facility], 1538) 73201: Plant Accountant/Techni salma ID = [id number] for DA VIS, HAYLIE POCT-GLUCOSE [id number] 23:50:31 Test Item Value Reference Range Interpretation Comments POC-GLUCOSE METER 141 mg/dL 70-110 H : TESTED A T [facility] 6720 (BEAKER) (test code = [facility] [employer] [facility], 1538) 24743: Plant Accountant/Techni salma ID = [id number] for DA VIS, HAYLIE POCT-GLUCOSE [id number] 20:19:25 Test Item Value Reference Range Interpretation Comments POC-GLUCOSE METER 147 mg/dL 70-110 H : TESTED A T [facility] 6720 (BEAKER) (test code = [place]REE[place] [facility], 1538) 57380: Plant Accountant/Techni salma ID = [id number] for HAYLIE ALARCON BLOOD [id number] 18:00:49 Test Item Value Reference Range Interpretation Comments CULTURE (BEAKER) (test No growth in 5 days code = 1095) The specimen volume collected for this blood culture was below the optimum (10 mL per bottle or 20 mL total). Use of lower volumes may adversely affect recovery and/or detection times of some organisms.BLOOD [id number] 18:00:48 Test Item Value Reference Range Interpretation Comments CULTURE (BEAKER) (test No growth in 5 days code = 1095) The specimen volume collected for this blood culture was below the optimum (10 mL per bottle or 20 mL total). Use of lower volumes may adversely affect recovery and/or detection times of some organisms.CT, ABDOMEN, RENAL MASS, CYST [id number] 17:09:00Renal mass protocolCT abd/pelvis 06/18 with left renal lower pole cyst with calcificationsPlease amend as necessaryUnlisted Reason for Exam - Click Yes and Enter Reason Below->No [facility] : 1950 [...] Ahn Verified Date/Time: 07/04/2021 17:09:07 Reading Location: [facility] C013Y CT Body Reading Room -GLUCOSE [id number] 16:41:35 Test Item Value Reference Range Interpretation Comments POC-GLUCOSE METER 101 mg/dL 70-110 : TESTED A T [facility] 6720 (FanBread) (test code = [facility] [employer] [facility], 1538) 89700: Plant Accountant/Techni salma ID = [id number] for TRANG KAMARA POCT-GLUCOSE [id number] 12:17:18 Test Item Value Reference Range Interpretation Comments POC-GLUCOSE METER 95 mg/dL 70-110 : TESTED A T [facility] 6720 (FanBread) (test code = [employer] [facility], 1538) 11919: Plant Accountant/Techni salma ID = [id number] for TRANG CHAPA [id number] 11:02:32 Test Item Value Reference Range Interpretation Comments Cortisol, Total (test code 17.0 ug/dL 3.7-19.4 = 2755) BANDAR (test code = BANDAR) Plant Accountant ID - JULIETTE Hernandez Lab Interpretation (test Normal code = 48961-0) [facility] [id number] 11:02:32 Test Item Value Reference Range Interpretation Comments CORTISOL, TOTAL (BEAKER) (test 17.0 ug/dL 3.7-19.4 code = 2755) Plant Accountant ID - JULIETTE HOGUErinalysis w/Microscopic + Reflex to [id number] 10:43:10 Test Item Value Reference Range Interpretation Comments Color, UA (test code Yellow = 5778-6) Clarity, UA (test Clear code = 5767-9) Specific Stanford, UA 1.020 1.001-1.035 (test code = 5811-5) pH, UA (test code = 5.5 5.0-8.0 5803-2) Protein, UA (test 20 mg/dL Negative A code = 74684-1) Glucose, UA (test Negative Negative code = 365) Ketones, UA (test Negative Negative code = 2514-8) Bilirubin, UA (test Negative Negative code = 68388-4) Blood, UA (test code Trace Negative A = 86603-6) Nitrite, UA (test Negative Negative code = 5802-4) Leukocytes, UA (test Negative Negative code = 5799-2) Urobilinogen, UA 0.2 mg/dL 0.2-1.0 (test code = 67887-4) RBC, UA (test code = <1 See_Comment [Autom ated 35391-7) message] The system which generated this result [...] Bacteria, UA (test None Seen code = 15637-8) Squam Epithel, UA <1 See_Comment [Automate d (test code = 46185-0) messag e] The system which generated this result transmit oziel reference range : /HPF. The reference range was not used to interpret this result as normal/abnormal . Crystals, Urine (test Rare code = 72548-4) Specimen Source (test code = 2795) BANDAR (test code = BANDAR) Plant Accountant ID - [auto]Plant Accountant ID - tech Lab Interpretation Abnormal (test code = 04539-9) [facility]UR[facility]/ REFLEX URINE [id number] 10:43:10 Test Item Value Reference Range Interpretation [...] = 1521) SOURCE(BEAKER) (test code = 2795) Plant Accountant ID - [auto]Plant Accountant ID - [id number] 10:22:39 Test Item Value Reference Range Interpretation Comments PROCALCITONIN (BEAKER) (test code 0.34 ng/mL <0.05 H = 3036) SEPSIS RISK (ng/mL)Low: 0.05-0.50Intermediate: 0.51-2.00High: >=2.01Lactic Acid, [id number] 09:51:27 Test Item Value Reference Range Interpretation Comments Lactate, Art (test code = 0.6 mmol/L 0.5-2.2 2873) BANDAR (test code = BANDAR) Plant Accountant ID - JULIETTE L Lab Interpretation (test Normal code = 89027-5) [facility] campusLACTIC ACID, [id number] 09:51:27 Test Item Value Reference Range Interpretation Comments LACTATE BLOOD ARTERIAL (2) 0.6 mmol/L 0.5-2.2 (BEAKER) (test code = 2874) Plant Accountant ID - JULIETTE LPOCT-GLUCOSE [id number] 06:43:06 Test Item Value Reference Range Interpretation Comments POC-GLUCOSE METER 103 mg/dL 70-110 : TESTED A T [facility] 6720 (BEAKER) (test code = ARTUROMI Isa [facility], 1538) 05750: Plant Accountant/Techni salma ID = [id number] for Al i, Kaelyn POCT-GLUCOSE [id number] 04:21:27 Test Item Value Reference Range Interpretation Comments POC-GLUCOSE METER 80 mg/dL 70-110 : TESTED A T [facility] 6720 (BEAKER) (test code = [facility], 1538) 13715: Plant Accountant/Techni salma ID = [id number] for HAYLIE CHOU RAD, CHEST, 1 VIEW, NON [id number] 04:10:00Reason for exam:- >intubatedShould this be performed at the bedside?->Yes [facility] 1950 [...] Stable contours. Additional findings: None. Signed: Maximilian Ndiaye MDReport Verified Date/Time: 07/04/2021 04:10:35 HEPATIC FUNCTION [id number] 04:08:17 Test Item Value Reference Range Interpretation [...] code = 65 U/L 6-55 H 347) Plant Accountant ID - [id number] 04:08:16 Test Item Value Reference Range Interpretation Comments MAGNESIUM (BEAKER) (test code = 2.2 mg/dL 1.6-2.6 627) Plant Accountant ID - DBBASIC METABOLIC [id number] 04:08:15 Test Item Value Reference Range Interpretation [...] S NOT APPLICABLE FOR DIALYSIS PATIEN TS. Plant Accountant ID - [id number] 04:05:54 Test Item Value Reference Range Interpretation Comments PARTIAL THROMBOPLASTIN TIME 66.2 seconds 22.5-36.0 H (BEAKER) (test code = 760) BLOOD GAS, [id number] 03:51:23 Test Item Value Reference Range Interpretation [...] 1819) 36.0 CBC W/PLT COUNT & AUTO [id number] 03:38:15 Test Item Value Reference Range Interpretation [...] PERCENT (BEAKER) (test code = 2801) POCT-GLUCOSE [id number] 03:34:47 Test Item Value Reference Range Interpretation Comments POC-GLUCOSE METER 76 mg/dL 70-110 : TESTED Jake Alexander [facility] 6720 (BEAKER) (test code = [place], 1538) 64830: Plant Accountant/Techni salma ID = [id number] for Kaelyn Bernabe POCT-GLUCOSE [id number] 02:47:41 Test Item Value Reference Range Interpretation Comments POC-GLUCOSE METER 88 mg/dL 70-110 : TESTED A T [facility] 6720 (BEAKER) (test code = [facility], 1538) 57276: Plant Accountant/Techni salma ID = [id number] for HAYLIE CHOU [id number] 00:48:54 Test Item Value Reference Range Interpretation Comments PARTIAL THROMBOPLASTIN TIME 69.4 seconds 22.5-36.0 H (BEAKER) (test code = 760) POCT-GLUCOSE [id number] 00:30:52 Test Item Value Reference Range Interpretation Comments POC-GLUCOSE METER 83 mg/dL 70-110 : TESTED A T [facility] 6720 (BEAKER) (test code = [facility], 1538) 11515: Plant Accountant/Techni salma ID = [id number] for Ali, Kaelyn POCT-GLUCOSE [id number] 22:36:15 Test Item Value Reference Range Interpretation Comments POC-GLUCOSE METER 84 mg/dL 70-110 : TESTED A T [facility] 6720 (BEAKER) (test code = [facility], 1538) 35986: Plant Accountant/Techni salma ID = [id number] for ALBERTO CHOUN POCT-GLUCOSE [id number] 20:40:48 Test Item Value Reference Range Interpretation Comments POC-GLUCOSE METER 91 mg/dL 70-110 : TESTED A T [facility] 6720 (BEAKER) (test code = [facility], 1538) 53868: Plant Accountant/Techni salma ID = [id number] for Ali, Kaelyn POCT-GLUCOSE [id number] 18:39:17 Test Item Value Reference Range Interpretation Comments POC-GLUCOSE METER 104 mg/dL 70-110 : TESTED A T [facility] 6720 (BEAKER) (test code [facility], = 1538) 96453: Plant Accountant/Techni salma ID = [id number] for Alyssa alfredo (contract), Alu sophie BASIC METABOLIC [id number] 18:02:42 Test Item Value Reference Range Interpretation [...] S NOT APPLICABLE FOR DIALYSIS PATIEN TS. Plant Accountant ID - [id number] 18:02:04 Test Item Value Reference Range Interpretation Comments PARTIAL THROMBOPLASTIN TIME 68.1 seconds 22.5-36.0 H (BEAKER) (test code = 760) Vancomycin level, [id number] 18:01:04 Test Item Value Reference Range Interpretation Comments Vancomycin Tr (test code = 15.9 ug/mL 10.0-20.0 4092-3) BANDAR (test code = BANDAR) Plant Accountant ID - DB Lab Interpretation (test Normal code = 60519-3) [facility] campusVANCOMYCIN LEVEL, [id number] 18:01:04 Test Item Value Reference Range Interpretation Comments VANCOMYCIN TROUGH (BEAKER) (test 15.9 ug/mL 10.0-20.0 code = 522) Plant Accountant ID - DBPOCT-GLUCOSE [id number] 17:59:09 Test Item Value Reference Range Interpretation Comments POC-GLUCOSE METER 36 mg/dL 70-110 LL : Notified RN/MD: TESTED (BEAKER) (test code = AT [facility] [address] [facility] 15[address]) [place], [address]: Plant Accountant/Techni salma ID = [id number] for Alyssa alfredo (contract)Bella CBC (Hemogram only)2021-07-03 17:55:55 Test Item Value Reference Range Interpretation Comments WBC (test code = 6690-2) 11.0 See_Comment H [A utomated message] The system [employer] generated this result transmitted ref erence range: 3.5 - 10 .5 K/L. The refe rence range was not u sed to interpret this result as normal/abnor mal. RBC (test code = 789-8) 2.70 See_Comment L [Au tomated message] The system [employer] generated this result transmitted ref erence range: 4.63 - 6 .08 M/L. The refe rence range was not u sed to interpret this result as normal/abnor mal. MCHC (test code = 786-4) 30.1 See_Comment L [A utomated message] The system [employer] generated this result transmitted ref erence range: [...] L [Aut omated message] 777-3) The system [employer] generated this result transmitted ref erence range: 150 - 45 0 K/CU MM. The referen ce range was not u sed to interpret this result as normal/abnor mal. MPV (test code = 11.8 fL 9.4-12.4 38621-3) nRBC (test code = 413) 0 See_Comment [Aut omated message] The system [employer] generated this result transmitted ref erence range: 0 - 0 /1 00 WBC. The refere nce range was not u sed to interpret this result as normal/abnor mal. Lab Interpretation (test Abnormal code = 97161-7) [facility] (HEMOGRAM ONLY)2021-07-03 17:55:55 Test Item Value Reference [...] (BEAKER) (test code = 413) BLOOD GAS, [id number] 17:51:47 Test Item Value Reference Range Interpretation [...] code = 1818) RAD, ABDOMEN/KUB, 1 VIEW [id number] 17:30:00Reason for exam:->s/p NGT placementShould this be performed at the bedside?->Yes [facility] 1950 [...] left perihilar airspace opacity. Signed: Calvin Lopez MDReport Verified Date/Time: 07/03/2021 17:30:43 2D Echo W/Doppler(CW/PW/Color)2021-07-03 17:00:26Ejection FractionSLEH ECHO HEARTLAB MKCKESSON CPACHI [facility] [id number] 14:45:22 Test Item Value Reference Range Interpretation Comments MAGNESIUM (BEAKER) (test code = 2.2 mg/dL 1.6-2.6 627) Plant Accountant ID - JAKE MBASIC METABOLIC [id number] 14:45:21 Test Item Value Reference Range Interpretation [...] S NOT APPLICABLE FOR DIALYSIS PATIEN TS. Plant Accountant ID - JAKE MPOCT-GLUCOSE [id number] 12:25:21 Test Item Value Reference Range Interpretation Comments POC-GLUCOSE METER 114 mg/dL 70-110 H : TESTED A T [facility] 6720 (BEAKER) (test code [facility], = 1538) 693[address]: Plant Accountant/Techni salma ID = [id number] for Alyssa alfredo (contract), Alu sine [id number] 10:11:32 Test Item Value Reference Range Interpretation Comments PARTIAL THROMBOPLASTIN TIME 58.1 seconds 22.5-36.0 H (BEAKER) (test code = 760) BLOOD GAS, [id number] 09:54:21 Test Item Value Reference Range Interpretation [...] code = 1819) 100.0 Venous doppler arm, [id number] 07:40:19Ejection FractionSLE ECHO HEARTLAB MKCKESSON [facility] [id number] 06:15:33 Test Item Value Reference Range Interpretation Comments POC-GLUCOSE METER 108 mg/dL 70-110 : TESTED A [facility] 6720 (BEAKER) (test code = [place], 1538) [address]: Plant Accountant/Techni salma ID = [id number] for HAYLIE ALARCON RAD, CHEST, 1 VIEW, NON [id number] 04:35:00Reason for exam:- >intubatedShould this be performed at the bedside?->Yes [facility] : 1950 Sex: MFINAL REPORT RAD, CHEST, 1 VIEW, NON DEPT INDICATION: intubated COMPARISON: Priorday's exam FINDINGS: Portable frontal view of the chest. IMPRESSION: Support Lines: Stable. Lungs and pleura: Unchanged bilateral interstitial pulmonary edema. No new consolidation or large effusion. No pneumothorax. Heart and mediastinum: Stable contours. Additional findings: None. Signed: Amber Haskinsthe institute of living Verified Date/Time: 07/03/2021 04:35:11 BLOOD GAS, [id number] 04:24:51 Test Item Value Reference Range Interpretation [...] 125-220 H BANDAR (test code = BANDAR) Plant Accountant ID - JAKE M Lab Interpretation (test Abnormal code = 61393-7) [facility] (LDH)2021-07-03 04:04:50 Test Item Value Reference Range Interpretation Comments LACTATE DEHYDROGENASE (BEAKER) (test 229 U/L 125-220 H code = 635) Plant Accountant ID - JAKE [id number] 04:04:49 Test Item Value Reference Range Interpretation Comments MAGNESIUM (BEAKER) (test code = 2.1 mg/dL 1.6-2.6 627) Plant Accountant ID - JAKE MBASIC METABOLIC [id number] 04:04:48 Test Item Value Reference Range Interpretation [...] S NOT APPLICABLE FOR DIALYSIS PATIEN TS. Plant Accountant ID - JAKE [id number] 03:55:23 Test Item Value Reference Range Interpretation Comments PARTIAL THROMBOPLASTIN TIME 70.7 seconds 22.5-36.0 H (BEAKER) (test code = 760) CBC W/PLT COUNT & AUTO [id number] 03:49:58 Test Item Value Reference Range Interpretation [...] PERCENT (BEAKER) (test code = 2801) POCT-GLUCOSE [id number] 00:14:21 Test Item Value Reference Range Interpretation Comments POC-GLUCOSE METER 101 mg/dL 70-110 : TESTED A T [facility] 6720 (BEAKER) (test code = [place], 1538) [address]: Plant Accountant/Techni salma ID = [id number] for HAYLIE ALARCON [id number] 21:27:11 Test Item Value Reference Range Interpretation Comments PARTIAL THROMBOPLASTIN TIME 98.8 seconds 22.5-36.0 H (BEAKER) (test code = 760) BASIC METABOLIC [id number] 21:14:49 Test Item Value Reference Range Interpretation [...] S NOT APPLICABLE FOR DIALYSIS PATIEN TS. Plant Accountant ID - DBPOCT-GLUCOSE [id number] 20:20:33 Test Item Value Reference Range Interpretation Comments POC-GLUCOSE METER 108 mg/dL 70-110 : TESTED A T [facility] 6720 (BEAKER) (test code = [place], 1538) [address]: Plant Accountant/Techni salma ID = [id number] for HAYLIE ALARCON [id number] 18:55:54 Test Item Value Reference Range Interpretation Comments MAGNESIUM (BEAKER) (test code = 2.1 mg/dL 1.6-2.6 627) Plant Accountant ID - DBPOCT-GLUCOSE [id number] 18:12:59 Test Item Value Reference Range Interpretation Comments POC-GLUCOSE METER 97 mg/dL 70-110 : TESTED A T [facility] 6720 (BEAKER) (test code = [place], 1538) [address]: Plant Accountant/Techni salma ID = [id number] for ALISHA MARIN BASIC METABOLIC [id number] 14:14:27 Test Item Value Reference Range Interpretation [...] S NOT APPLICABLE FOR DIALYSIS PATIEN TS. Plant Accountant ID - DBMR, BRAIN, WITHOUT [id number] 14:13:00Unlisted Reason for Exam - Click Yes and Enter Reason Below->No [facility] : 1950 Sex: MFINAL REPORT EXAM/TECHNIQUE: MRI of the brain without contrast. Multiplanar multisequence images were acquired. INDICATION: Altered mental status. COMPARISON: None. FINDINGS: Globalparenchymal volume loss. Mild burden of T2/FLAIR white matter hyperintense lesions, likely reflecting chronic microvascular changes. No abnormal parenchymal DWI hyperintensity. No abnormal susceptibility artifact. Ventricles are normal. Basal cisterns are patent. No midline shift. No tonsillar ectopia. Midline structures are unremarkable. Visualized face and upper neck are unremarkable. Flow voids are normal. Orbits are normal. Paranasal sinuses are clear. Mastoid air cells are clear. No suspicious osseous lesion. Impression: 1.No acute intracranial process.2.Parenchymal volume loss and chronic microvascular changes. Signed: Joe López [facility] Verified Date/Time: 07/02/2021 14:13:50 [id number] 13:41:00 Test Item Value Reference Range Interpretation [...] 0-0 (BEAKER) (test code = 413) BLOOD [id number] 13:21:01 Test Item Value Reference Range Interpretation [...] d message] code = 143) The system [facility] h generated this result transmitted ref erence range: Suscepti ble 0-0 , Dose Depe ndent Susceptible <0 or >0 , Resi. The ref erence range was not u sed to interpret this result as normal/abnor mal. Itraconazole (test See_Comment [Automat ed message] code = 146) The system [facility] generated this result transmitted ref erence range: Suscepti ble 0-0.125 , Dose Dependent Susce ptible <0 or >.125. Th e reference range was not used to int erpret this result as normal/abnormal . Micafungin (test See_Comment S [Automated message] code = 148) The system [employer] generated this result transmitted ref erence range: Suscepti ble 0-0.06 , Non-susceptible <0 or >.06 , Resistan t . The reference r cheri was not used to interpret this result as normal/abnor mal. Posaconazole (test See_Comment [Automat ed message] code = 152) The system [employer] generated this result transmitted ref erence range: Suscepti ble >0-0 , No Interpretations Established <=0 or >0 . The reference range was not used to interpret this result as normal/abnor mal. Voriconazole (test See_Comment [Automat ed message] code = 153) The system [employer] generated this result transmitted ref erence range: Suscepti ble >0-0 , Dose Dep endent Susceptible <=0 or >0 , No. The refer ence range was not u sed to interpret this result as normal/abnor mal. GRAM STAIN RESULT From aerobic (BEAKER) (test code bottle only: = 1123) yeast POCT-GLUCOSE [id number] 13:16:41 Test Item Value Reference Range Interpretation Comments POC-GLUCOSE METER 97 mg/dL 70-110 : [facility] ([facility] (test code = [place] [facility], 1538) 85[address]: Plant Accountant/Techni salma ID = [id number] for ALISHA MARIN [id number] 07:00:41 Test Item Value Reference Range Interpretation Comments PARTIAL THROMBOPLASTIN TIME 69.1 seconds 22.5-36.0 H (BEAKER) (test code = 760) SPUTUM CULTURE + GRAM [id number] 06:19:26 Test Item Value Reference Interpretation Comments [...] 5-10 epithelial (BEAKER) (test code = cells 714171) GRAM STAIN RESULT <1+ gram negative (BEAKER) (test code = rods 061216) GRAM STAIN RESULT <1+ gram positive (BEAKER) (test code = cocci in clusters 357543) 2+ yeastNo Normal respiratory ignacia presentPOCT-GLUCOSE [id number] 06:01:48 Test Item Value Reference Range Interpretation Comments POC-GLUCOSE METER 151 mg/dL 70-110 H : TESTED A T [facility] 6720 (BEAKER) (test code = [place] [facility], 1538) 698[address]: Plant Accountant/Techni salma ID = [id number] for SA ALISHA REGAN [id number] 05:34:54 Test Item Value Reference Range Interpretation Comments PARTIAL THROMBOPLASTIN TIME 132.9 seconds 22.5-36.0 H (BEAKER) (test code = 760) RAD, CHEST, 1 VIEW, NON [id number] 02:42:00Reason for exam:- >intubatedShould this be performed at the bedside?->Yes [facility] : 1950 Sex: MFINAL REPORT RAD, CHEST, 1 VIEW, NON DEPT INDICATION: intubated COMPARISON: Priorday's exam FINDINGS: Portable frontal view of the chest. IMPRESSION: Support Lines: No significant change. Lungs and pleura: Unchanged bilateral interstitial opacities. No pneumothorax.Heart and mediastinum: Stable contours. Additional findings: None. Signed: Maximilian Ndiayeeport Verified Date/Time: 07/02/2021 02:42:28 [id number] 02:00:47 Test Item Value Reference Range Interpretation Comments PARTIAL THROMBOPLASTIN TIME > seconds 22.5-36.0 HH (BEAKER) (test code = 760) HEPATIC FUNCTION [id number] 01:39:34 Test Item Value Reference Range Interpretation [...] (test code = 38 U/L 6-55 347) Plant Accountant ID - DBLACTATE DEHYDROGENASE (LDH)2021-07-02 01:39:34 Test Item Value Reference Range Interpretation Comments LACTATE DEHYDROGENASE (BEAKER) (test 210 U/L 125-220 code = 635) Plant Accountant ID - [id number] 01:39:33 Test Item Value Reference Range Interpretation Comments PHOSPHORUS (BEAKER) (test code = 3.9 mg/dL 2.3-4.7 604) Plant Accountant ID - [id number] 01:39:32 Test Item Value Reference Range Interpretation Comments MAGNESIUM (BEAKER) (test code = 2.0 mg/dL 1.6-2.6 627) Plant Accountant ID - DBBASIC METABOLIC [id number] 01:39:31 Test Item Value Reference Range Interpretation [...] S NOT APPLICABLE FOR DIALYSIS PATIEN TS. Plant Accountant ID - DBCBC W/PLT COUNT & AUTO [id number] 01:24:15 Test Item Value Reference Range Interpretation [...] (BEAKER) (test code = 2801) BLOOD GAS, [id number] 01:22:03 Test Item Value Reference Range Interpretation [...] (BEAKER) (test code = 1819) 30.0 POCT-GLUCOSE [id number] 01:02:13 Test Item Value Reference Range Interpretation Comments POC-GLUCOSE METER 170 mg/dL 70-110 H : TESTED A T [facility] 6720 (BEAKER) ([facility]) 27195: Plant Accountant/Techni salma ID = [id number] for CARLOS ELLISON BASIC METABOLIC [id number] 22:17:48 Test Item Value Reference Range Interpretation [...] S NOT APPLICABLE FOR DIALYSIS PATIEN TS. Plant Accountant ID - DBBLOOD [id number] 22:00:44 Test Item Value Reference Range Interpretation Comments CULTURE (BEAKER) (test No growth in 5 days code = 1095) [id number] 18:04:14 Test Item Value Reference Range Interpretation Comments PARTIAL THROMBOPLASTIN TIME 34.2 seconds 22.5-36.0 (BEAKER) (test code = 760) POCT-GLUCOSE [id number] 16:55:46 Test Item Value Reference Range Interpretation Comments POC-GLUCOSE METER 117 mg/dL 70-110 H : TESTED A T [facility] 6720 (BEAKER) (test code = [place] [facility], 1538) 190[address]: Plant Accountant/Techni salma ID = [id number] for IB RAHIM, SERKALEM [id number] 14:06:45 Test Item Value Reference Range Interpretation Comments MAGNESIUM (BEAKER) (test code = 2.3 mg/dL 1.6-2.6 627) Plant Accountant ID - JAKE MBASIC METABOLIC [id number] 14:06:44 Test Item Value Reference Range Interpretation [...] S NOT APPLICABLE FOR DIALYSIS PATIEN TS. Plant Accountant ID - JAKE MCBC W/PLT COUNT & AUTO [id number] 13:46:22 Test Item Value Reference Range Interpretation [...] PERCENT (BEAKER) (test code = 2801) POCT-GLUCOSE [id number] 11:13:41 Test Item Value Reference Range Interpretation Comments POC-GLUCOSE METER 193 mg/dL 70-110 H : TESTED A T [facility] 6720 (BEAKER) (test code = [place], 1538) 16[address]: Plant Accountant/Techni salma ID = [id number] for IB SATYARoland ILANABANDAR [id number] 10:15:46 Test Item Value Reference Range Interpretation Comments PARTIAL THROMBOPLASTIN TIME 29.2 seconds 22.5-36.0 (BEAKER) (test code = 760) RAD, CHEST, 1 VIEW, NON [id number] 07:21:00Reason for exam:- >intubatedShould this be performed at the bedside?->Yes [facility] : 1950 Sex: [...] Stable contours. Additional findings: None. Signed: Luke Pfeiffer Verified Date/Time: 07/01/2021 07:21:11 POCT-GLUCOSE [id number] 07:07:49 Test Item Value Reference Range Interpretation Comments POC-GLUCOSE METER 165 mg/dL 70-110 H : TESTED A T [facility] 6720 (GALE) (test code = ARTUROJOCE [place] [facility], 1538) 81287: Plant Accountant/Techni salma ID = [id number] for Franchesca Reyna [id number] 02:09:10 Test Item Value Reference Range Interpretation Comments PARTIAL THROMBOPLASTIN TIME 27.4 seconds 22.5-36.0 (SPAKER) (test code = 760) LACTATE DEHYDROGENASE (LDH)2021-07-01 02:02:53 Test Item Value Reference Range Interpretation Comments LACTATE DEHYDROGENASE (SPAKER) (test 287 U/L 125-220 H code = 635) Plant Accountant ID - JULIETTE LHEPATIC FUNCTION [id number] 02:02:52 Test Item Value Reference Range Interpretation [...] (test code = 46 U/L 6-55 347) Plant Accountant ID - JULIETTE [id number] 02:02:51 Test Item Value Reference Range Interpretation Comments MAGNESIUM (BEAKER) (test code = 2.0 mg/dL 1.6-2.6 627) Plant Accountant ID - JULIETTE [id number] 02:02:51 Test Item Value Reference Range Interpretation Comments PHOSPHORUS (BEAKER) (test code = 4.2 mg/dL 2.3-4.7 604) Plant Accountant ID - JULIETTE LBASIC METABOLIC [id number] 02:02:50 Test Item Value Reference Range Interpretation [...] S NOT APPLICABLE FOR DIALYSIS PATIEN TS. Plant Accountant ID - PIAYA LCBC W/PLT COUNT & AUTO [id number] 01:50:01 Test Item Value Reference Range Interpretation [...] (BEAKER) (test code = 2801) BLOOD GAS, [id number] 01:48:18 Test Item Value Reference Range Interpretation [...] (BEAKER) (test code = 1819) 30.0 POCT-GLUCOSE [id number] 23:53:08 Test Item Value Reference Range Interpretation Comments POC-GLUCOSE METER 221 mg/dL 70-110 H : TESTED A T [facility] 6720 (BEAKER) (test code [facility], = 1538) 83030: Plant Accountant/Techni salma ID = [id number] for SUGU , SHEENAMOL POCT-GLUCOSE [id number] 21:19:37 Test Item Value Reference Range Interpretation Comments POC-GLUCOSE METER 206 mg/dL 70-110 H : TESTED A T [facility] 6720 (BEAKER) (test code = [facility], 1538) 36791: Plant Accountant/Techni salma ID = [id number] for Uy , Franchesca [id number] 19:23:34 Test Item Value Reference Range Interpretation Comments PARTIAL THROMBOPLASTIN TIME 30.3 seconds 22.5-36.0 (BEAKER) (test code = 760) Aspergillus galactomannan [id number] 19:19:10 Test Item Value Reference Interpretation Comments Range Aspergillus <0.50 Index Value (test code = 2645) Aspergillus NOT DETECTED REFERENCE RANGE : <0.50, Antigen (test NOT DETECTED A n Index code = 16405-7) <0.50 is con sidered to be negative.An [...] (test code = Performing Lab BANDAR) *QDID [facility] [address] [place] [address] Ashish Torres MD, PhD [facility] campusAPTT2022-02-25 18:32:05 Test Item Value Reference Range Interpretation Comments PARTIAL THROMBOPLASTIN TIME 28.3 seconds 22.5-36.0 (BEAKER) (test code = 760) [id number] 16:45:10 Test Item Value Reference Range Interpretation Comments MAGNESIUM (BEAKER) (test code = 2.1 mg/dL 1.6-2.6 627) Plant Accountant ID - emilio wBASIC METABOLIC [id number] 16:45:09 Test Item Value Reference Range Interpretation [...] S NOT APPLICABLE FOR DIALYSIS PATIEN TS. Plant Accountant ID - emliio wCBC W/PLT COUNT & AUTO [id number] 16:23:03 Test Item Value Reference Range Interpretation [...] PERCENT (BEAKER) (test code = 2801) POCT-GLUCOSE [id number] 15:58:54 Test Item Value Reference Range Interpretation Comments POC-GLUCOSE METER 133 mg/dL 70-110 H : TESTED A T [facility] 6720 (BEAKER) (test code = [place], 1538) 84[address]: Plant Accountant/Techni salma ID = [id number] for JAN JENKINS BASIC METABOLIC [id number] 12:13:12 Test Item Value Reference Range Interpretation [...] (test code = 697) EGFR (BEAKER) (test 47 mL/min/1.73 ESTIMA OZIEL GFR IS code = 1092) sq m NOT ACCURATE CREATININE CLEARANCE IN PREDICTING GLOMERULAR FILTRATION RATE . ESTIMATED GFR I S NOT APPLICABLE FOR DIALYSIS PATIEN TS. Plant Accountant ID - CHRISRENÉ [id number] 12:03:26 Test Item Value Reference Range Interpretation Comments PARTIAL THROMBOPLASTIN TIME 75.4 seconds 22.5-36.0 H (BEAKER) (test code = 760) POCT-GLUCOSE [id number] 11:57:24 Test Item Value Reference Range Interpretation Comments POC-GLUCOSE METER 140 mg/dL 70-110 H : TESTED Jake Alexander [facility] 6720 (GALE) (test code = [place], 1538) [address]: Plant Accountant/Techni salma ID = [id number] for GO BARBARA (V), TIMO Venous doppler legs [id number] 09:24:37Ejection FractionSLE ECHO HEARTLAB MKCKESSON CPACHI [facility] HospitalRAD[facility]ST, 1 VIEW, NON DEPT 2021-06-30 07:11:00Reason for exam:->intubatedShould this be performed at the bedside?->Yes[facility] : 1950 Sex: [...] Sosa Verified Date/Time: 06/30/2021 07:11:07 [facility] POCT-GLUCOSE [id number] 06:22:47 Test Item Value Reference Range Interpretation Comments POC-GLUCOSE METER 114 mg/dL 70-110 H : [facility] (BEAKER[facility] (test code [facility], = 1538) 58708: Plant Accountant/Techni salma ID = [id number] for SUGU , SHEENAMOL [id number] 04:02:03 Test Item Value Reference Range Interpretation Comments PARTIAL THROMBOPLASTIN TIME 104.3 seconds 22.5-36.0 H (BEAKER) (test code = 760) LACTATE DEHYDROGENASE (LDH)2021-06-30 03:55:53 Test Item Value Reference Range Interpretation Comments LACTATE DEHYDROGENASE (BEAKER) (test 238 U/L 125-220 H code = 635) Plant Accountant ID - EMILIO [id number] 03:55:52 Test Item Value Reference Range Interpretation Comments PHOSPHORUS (BEAKER) (test code = 3.7 mg/dL 2.3-4.7 604) Plant Accountant ID - EMILIO WHEPATIC FUNCTION [id number] 03:55:52 Test Item Value Reference Range Interpretation [...] (test code = 44 U/L 6-55 347) Plant Accountant ID - EMILIO [id number] 03:55:51 Test Item Value Reference Range Interpretation Comments MAGNESIUM (BEAKER) (test code = 2.1 mg/dL 1.6-2.6 627) Plant Accountant BOOGIE ORTIZASIC METABOLIC [id number] 03:55:50 Test Item Value Reference Range Interpretation [...] S NOT APPLICABLE FOR DIALYSIS PATIEN TS. Plant Accountant BOOGIE ORTIZLOOD GAS, [id number] 03:52:14 Test Item Value Reference Range Interpretation [...] (test code = 1819) 30.0 LACTIC ACID, [id number] 03:47:06 Test Item Value Reference Range Interpretation Comments LACTATE BLOOD ARTERIAL (2) 0.6 mmol/L 0.5-2.2 (BEAKER) (test code = 2874) Plant Accountant BOOGIE KRISHNAMURTHY WCBC W/PLT COUNT & AUTO [id number] 03:37:22 Test Item Value Reference Range Interpretation [...] (BEAKER) (test code = 2801) U/S, ABDOMINAL, [id number] 02:36:00Abdomen limited area? Add comment if clarification is needed.->Gall BladderReason for exam:->patient septic; r/o biliary pathology [facility] 1950 [...] Amber Haskins MDReportVerified Date/Time: 06/30/2021 02:36:47 POCT-GLUCOSE [id number] 02:00:15 Test Item Value Reference Range Interpretation Comments POC-GLUCOSE METER 117 mg/dL 70-110 H : TESTED A T [facility] 6720 (BEAKER) (test code = [facility], 1538) 63803: Plant Accountant/Techni salma ID = [id number] for Uy , [place] POCT-GLUCOSE [id number] 22:31:40 Test Item Value Reference Range Interpretation Comments POC-GLUCOSE METER 132 mg/dL 70-110 H : TESTED A T [facility] 6720 (BEAKER) (test code = [facility], 1538) 55041: Plant Accountant/Techni salma ID = [id number] for Uy , Franchesca BASIC METABOLIC [id number] 21:23:10 Test Item Value Reference Range Interpretation [...] S NOT APPLICABLE FOR DIALYSIS PATIEN TS. Plant Accountant ID - DBLACTIC ACID, [id number] 21:16:25 Test Item Value Reference Range Interpretation Comments LACTATE BLOOD ARTERIAL (2) 1.0 mmol/L 0.5-2.2 (BEAKER) (test code = 2874) Plant Accountant ID - DBPOCT-GLUCOSE [id number] 17:43:42 Test Item Value Reference Range Interpretation Comments POC-GLUCOSE METER 186 mg/dL 70-110 H : TESTED A T [facility] 6720 (BEAKER) (test code = [place], 1538) 05[address]: Plant Accountant/Techni salma ID = [id number] for TRANG KAMARA VANCOMYCIN LEVEL, [id number] 17:16:05 Test Item Value Reference Range Interpretation Comments VANCOMYCIN TROUGH (BEAKER) (test 17.6 ug/mL 10.0-20.0 code = 522) Plant Accountant ID - [id number] 17:06:04 Test Item Value Reference Range Interpretation Comments MAGNESIUM (BEAKER) (test code = 2.2 mg/dL 1.6-2.6 627) Plant Accountant ID - BSBLOOD GAS, [id number] 17:04:19 Test Item Value Reference Range Interpretation [...] 1819) 30.0 CBC W/PLT COUNT & AUTO [id number] 16:47:13 Test Item Value Reference Range Interpretation [...] PERCENT (BEAKER) (test code = 2801) BLOOD [id number] 16:00:36 Test Item Value Reference Range Interpretation Comments CULTURE (BEAKER) (test No growth in 5 days code = 1095) The specimen volume collected for this blood culture was below the optimum (10 mL per bottle or 20 mL total). Use of lower volumes may adversely affect recovery and/or detection times of some organisms.Blood Culture Panel(Z2) 2021-06-29 15:37:26 Test Item Value Reference Interpretation Comments Range LISTERIA MONOCYTOGENES Not detected Not detected (test code = 83679-7) STAPHYLOCOCCUS (test Not detected Not detected code = 90517-3) STAPHYLOCOCCUS AUREUS Not detected Not detected (test code = 85984-1) Streptococcus (test Not detected Not detected code = 96503-5) STREPTOCOCCUS Not detected Not detected AGALACTIAE (GROUP B) (test code = 68511-6) STREPTOCOCCUS Not detected Not detected PNEUMONIAE (test code = 55349-9) Streptococcus pyogenes Not detected Not detected (Group A) (test code = 40757-8) ACINETOBACTER Not detected Not detected BAUMANNII (test code = 47804-0) HAEMOPHILUS INFLUENZAE Not detected Not detected (test code = 34886-9) NEISSERIA MENINGITIDIS Not detected Not detected (test code = 51464-2) ENTEROBACTERIACEAE Not detected Not detected (test code = 58429-6) ENTEROBACTER CLOACOE Not detected Not detected COMPLEX (test code = 38656-3) KLEBSIELLA OXYTOCA Not detected Not detected (test code = 36445-9) KLEBSIELLA PNEUMONIAE Not detected Not detected (test code = 71304-3) PROTEUS (test code = Not detected Not detected 50369-4) SERRATIA MARCESCENS Not detected Not detected (test code = 47064-2) SHIRIN ALBICANS (test Not detected Not detected code = 67733-7) SHIRIN GLABRATA (test Detected Not detected A First line therapy: code = 94607-5) MicafunginDe -escala te based on susceptibilitie s when patient is clinically improvingID and Ophthalmologic consultations strongly recommended Reference Range : Not Detected SHIRIN KRUSEI (test Not detected Not detected code = 58921-2) SHIRIN PARAPSILOSIS Not detected Not detected (test code = 94509-1) SHIRIN TROPICALIS Not detected Not detected (test code = 79750-2) ESCHERICHIA COLI (test Not detected Not detected code = 09346-5) METHICILLIN-RESISTANCE GENE (test code = 23396-2) VANCOMYCIN-RESISTANCE GENE (test code = 31958-7) CARBAPENEM-RESISTANCE GENE (test code = 58446-6) ENTEROCOCCUS (test Not detected Not detected code = 39111-3) PSEUDOMONAS AERUGINOSA Not detected Not detected (test code = 46417-0) BANDAR (test code = BANDAR) Other bacteria and resistance markers not targeted by this PCR panel cannot be excluded; therefore clinical correlation and follow up of serology, culture results, and other molecular studies is required. The results are not intended to be used as the sole means for clinical diagnosis or patient management decisions. This sample was tested at the [facility] using the [employer] Blood Culture ID Panel. It is FDA cleared and has been verified and approved by the [facility] for clinical use. This laboratory is CLIA-certified and [employer] (CAP)-accredited to perform high complexity testing. Lab Interpretation Abnormal (test code = 63323-7) [facility] IDENTIFICATION [id number] 15:37:26 Test Item Value Reference Interpretation Comments Range LISTERIA MONOCYTOGENES Not detected Not detected (test code = 1369552) STAPHYLOCOCCUS (test Not detected Not detected code = 1622756) STAPHYLOCOCCUS AUREUS Not detected Not detected (test code = 5730931) STREPTOCOCCUS (test Not detected Not detected code = 3873939) STREPTOCOCCUS Not detected Not detected AGALACTIAE (GROUP B) (test code = 5483147) STREPTOCOCCUS Not detected Not detected PNEUMONIAE (test code = 6297992) STREPTOCOCCUS PYOGENES Not detected Not detected (GROUP A) (test code = 8002624) ACINETOBACTER BAUMANNII Not detected Not detected (test code = 9696719) HAEMOPHILUS INFLUENZAE Not detected Not detected (test code = 3024392) NEISSERIA MENINGITIDIS Not detected Not detected (test code = 3386526) ENTEROBACTERIACEAE Not detected Not detected (test code = 0475251) ENTEROBACTER CLOACOE Not detected Not detected COMPLEX (test code = 2462290) KLEBSIELLA OXYTOCA Not detected Not detected (test code = 8315112) KLEBSIELLA PNEUMONIAE Not detected Not detected (test code = 1650) PROTEUS (test code = Not detected Not detected 4838364) SERRATIA MARCESCENS Not detected Not detected (test code = 3286012) SHIRIN ALBICANS (test Not detected Not detected code = 9205370) SHIRIN GLABRATA (test Detected Not detected A First line therapy: code = 1080589) MicafunginDe -escalat e based on susceptibilitie s when patient is clinically improvingID and Ophthalmologic consultations strongly recomm ended Reference Range : Not Detected SHIRIN KRUSEI (test Not detected Not detected code = 5135346) SHIRIN PARAPSILOSIS Not detected Not detected (test code = 6888184) SHIRIN TROPICALIS Not detected Not detected (test code = 9966668) ESCHERICHIA COLI (test Not detected Not detected code = 5211238) METHICILLIN-RESISTANCE GENE (test code = 8306764) VANCOMYCIN-RESISTANCE GENE (test code = 0089093) CARBAPENEM-RESISTANCE GENE (test code = 7460127) ENTEROCOCCUS-BEAKER Not detected Not detected (test code = 0118054) PSEUDOMONAS Not detected Not detected AERUGINOSA-BEAKER (test code = 1890745) Other bacteria and resistance markers not targeted by this PCR panel cannot be excluded; therefore clinical correlation and follow up of serology, culture results, and other molecular studies is required. The results are not intended to be used as the sole means for clinical diagnosis or patient management decisions. This sample was tested at the [facility] using the [employer] Blood Culture ID Panel. It is FDA cleared and has been verified and approved by the [facility] for clinical use. This laboratory is CLIA-certified and College ofAmerican Pathologists (CAP)-accredited to perform high complexity testing.[id number] 14:50:30 Test Item Value Reference Range Interpretation Comments PARTIAL THROMBOPLASTIN TIME 69.4 seconds 22.5-36.0 H (BEAKER) (test code = 760) BASIC METABOLIC [id number] 12:40:24 Test Item Value Reference Range Interpretation [...] S NOT APPLICABLE FOR DIALYSIS PATIEN TS. Plant Accountant ID - BSPOCT-GLUCOSE [id number] 12:27:18 Test Item Value Reference Range Interpretation Comments POC-GLUCOSE METER 229 mg/dL 70-110 H : TESTED A T [facility] (GALE) (test code = [place], 1538) [address]: Plant Accountant/Techni salma ID = [id number] for TRANG KAMARA [id number] 08:57:50 Test Item Value Reference Range Interpretation Comments PARTIAL THROMBOPLASTIN TIME 62.3 seconds 22.5-36.0 H (GALE) (test code = 760) RAD, CHEST, 1 VIEW, NON [id number] 07:14:00Reason for exam:- >intubatedShould this be performed at the bedside?->Yes [facility] 1950 [...] airspace opacities again noted. Signed: Kelvin Sosa Verified Date/Time: 06/29/2021 07:14:46 Reading Location: [facility] Radiology Reading Room [id number] 06:58:42 Test Item Value Reference Range Interpretation Comments PHOSPHORUS (BEAKER) (test code = 4.2 mg/dL 2.3-4.7 604) Plant Accountant ID - BSHEPATIC FUNCTION [id number] 06:58:41 Test Item Value Reference Range Interpretation [...] (test code = 43 U/L 6-55 347) Plant Accountant ID - BSPOCT-GLUCOSE [id number] 06:27:42 Test Item Value Reference Range Interpretation Comments POC-GLUCOSE METER 199 mg/dL 70-110 H : TESTED A T [facility] (BEAKER) (test code = [place], 1538) [address]: Plant Accountant/Techni salma ID = [id number] for ALISHA RAMIREZ LACTATE DEHYDROGENASE (LDH)2021-06-29 02:42:02 Test Item Value Reference Range Interpretation Comments LACTATE DEHYDROGENASE (BEAKER) (test 262 U/L 125-220 H code = 635) Plant Accountant ID - BSUric [id number] 02:42:01 Test Item Value Reference Range Interpretation Comments Uric Acid (test code = 6.5 mg/dL 2.6-7.2 3084-1) BANDAR (test code = BANDAR) Plant Accountant ID - BS Lab Interpretation (test Normal code = 31127-8) [facility] [id number] 02:42:01 Test Item Value Reference Range Interpretation Comments URIC ACID (BEAKER) (test code = 6.5 mg/dL 2.6-7.2 773) Plant Accountant ID - BSBASIC METABOLIC [id number] 02:42:00 Test Item Value Reference Range Interpretation [...] S NOT APPLICABLE FOR DIALYSIS PATIEN TS. Plant Accountant ID - [id number] 02:42:00 Test Item Value Reference Range Interpretation Comments MAGNESIUM (BEAKER) (test code = 1.9 mg/dL 1.6-2.6 627) Plant Accountant ID - BSCBC W/PLT COUNT & AUTO [id number] 02:09:55 Test Item Value Reference Range Interpretation [...] 0-1 PERCENT (BEAKER) (test code = 2801) [id number] 02:08:31 Test Item Value Reference Range Interpretation Comments PARTIAL THROMBOPLASTIN TIME 50.7 seconds 22.5-36.0 H (BEAKER) (test code = 760) BLOOD GAS, [id number] 01:50:20 Test Item Value Reference Range Interpretation [...] (BEAKER) (test code = 1819) 35.0 POCT-GLUCOSE [id number] 01:43:59 Test Item Value Reference Range Interpretation Comments POC-GLUCOSE METER 173 mg/dL 70-110 H : TESTED A T [facility] 6720 (BEAKER) (test code = [place], 1538) [address]: Plant Accountant/Techni salma ID = [id number] for ALISHA RAMIREZ BASIC METABOLIC [id number] 23:03:13 Test Item Value Reference Range Interpretation [...] S NOT APPLICABLE FOR DIALYSIS PATIEN TS. Plant Accountant ID - BSPOCT-GLUCOSE [id number] 20:25:37 Test Item Value Reference Range Interpretation Comments POC-GLUCOSE METER 192 mg/dL 70-110 H : TESTED A T [facility] 6720 (BEAKER) (test code = [facility], 1538) [address]: Plant Accountant/Techni salma ID = [id number] for Se ramirez (contract)Vandana [id number] 18:59:11 Test Item Value Reference Range Interpretation Comments PARTIAL THROMBOPLASTIN TIME 50.9 seconds 22.5-36.0 H (BEAKER) (test code = 760) POCT-GLUCOSE [id number] 18:22:18 Test Item Value Reference Range Interpretation Comments POC-GLUCOSE METER 244 mg/dL 70-110 H : TESTED A T [facility] 6720 (BEAKER) (test code = [facility], 1538) [address]: Plant Accountant/Techni salma ID = [id number] for Fadia Hays [id number] 18:13:23 Test Item Value Reference Range Interpretation Comments MAGNESIUM (BEAKER) (test code = 2.0 mg/dL 1.6-2.6 627) Plant Accountant ID - BSCBC W/PLT COUNT & AUTO [id number] 17:59:41 Test Item Value Reference Range Interpretation [...] (BEAKER) (test code = 2801) BLOOD GAS, [id number] 17:53:50 Test Item Value Reference Range Interpretation [...] 35.0 FUNGITELL R B-D-GLUCAN WITH REFLEX TO [id number] 12:25:42 Test Item Value Reference Range Interpretation Comments FUNGITELL (test code = See scanned report 36813-4) BANDAR (test code = BANDAR) See scanned report [facility] WITH REFLEX TO [id number] 12:25:42 Test Item Value Reference Range Interpretation Comments FUNGITELL (test code = See scanned report 4559) See scanned [id number] 12:23:54 Test Item Value Reference Range Interpretation Comments PARTIAL THROMBOPLASTIN TIME 49.7 seconds 22.5-36.0 H (BEAKER) (test code = 760) POCT-GLUCOSE [id number] 12:07:29 Test Item Value Reference Range Interpretation Comments POC-GLUCOSE METER 232 mg/dL 70-110 H : [facility] ([facility] (test code = [place], 1538) [address]: Plant Accountant/Techni salma ID = [id number] for Fadia Hays BASIC METABOLIC [id number] 10:52:41 Test Item Value Reference Range Interpretation [...] S NOT APPLICABLE FOR DIALYSIS PATIEN TS. Plant Accountant ID - BSRAD, CHEST, 1 VIEW, NON [id number] 07:39:00Reason for exam:- >intubatedShould this be performed at the bedside?->Yes [facility] 1950 Sex: [...] Sosa Verified Date/Time: 06/28/2021 07:39:59 Reading Location: [facility] Radiology Reading Room Manual [id number] 07:01:59 Test Item Value Reference Range Interpretation [...] = 3438) BANDAR (test code = BANDAR) Plant Accountant ID - emmanuel Alonso comments: Slide comments: Lab Interpretation (test Abnormal code = 31179-0) [facility](CELLAVISION MANUAL DIFF)2021-06-28 07:01:59 Test Item Value Reference [...] CONCENTRATION Decreased (CELLAVISION)(BEAKER) (test code = 3438) Plant Accountant ID - emmanuel Alonso comments: Slide comments:CBC W/PLT COUNT & AUTO [id number] 07:01:57 Test Item Value Reference Range Interpretation [...] 257 U/L 125-220 H code = 635) Plant Accountant ID - EMILIO [id number] 05:33:44 Test Item Value Reference Range Interpretation Comments PHOSPHORUS (BEAKER) (test code = 4.4 mg/dL 2.3-4.7 604) Plant Accountant ID Cory KRISHNAMURTHY WHEPATIC FUNCTION [id number] 05:33:44 Test Item Value Reference Range Interpretation [...] (test code = 41 U/L 6-55 347) Plant Accountant ID - EMILIO [id number] 05:33:43 Test Item Value Reference Range Interpretation Comments MAGNESIUM (BEAKER) (test code = 2.1 mg/dL 1.6-2.6 627) Plant Accountant ID Cory KRISHNAMURTHY WBASIC METABOLIC [id number] 05:33:42 Test Item Value Reference Range Interpretation [...] S NOT APPLICABLE FOR DIALYSIS PATIEN TS. Plant Accountant ID - EMILIO [id number] 05:29:56 Test Item Value Reference Range Interpretation Comments PARTIAL THROMBOPLASTIN TIME 36.1 seconds 22.5-36.0 H (BEAKER) (test code = 760) BLOOD GAS, [id number] 04:52:21 Test Item Value Reference Range Interpretation [...] (BEAKER) (test code = 1819) 35.0 POCT-GLUCOSE [id number] 23:44:50 Test Item Value Reference Range Interpretation Comments POC-GLUCOSE METER 234 mg/dL 70-110 H : Notified RN/MD: (BEAKER) (test code = TESTED AT [facility] 5530 3674) [facility], [address]: Plant Accountant/Techni salma ID = [id number] for Edin mitchell (contract, Cheri rees BASIC METABOLIC [id number] 22:53:47 Test Item Value Reference Range Interpretation [...] S NOT APPLICABLE FOR DIALYSIS PATIEN TS. Plant Accountant ID - BSPOCT-GLUCOSE [id number] 21:22:08 Test Item Value Reference Range Interpretation Comments POC-GLUCOSE METER 196 mg/dL 70-110 H : TESTED A T [facility] 6720 (BEAKER) (test code = [facility] [employer] [facility], 1538) [address]: Plant Accountant/Techni salma ID = [id number] for Se ramirez (contract), Vandana ice BLOOD GAS, [id number] 18:24:43 Test Item Value Reference Range Interpretation [...] (BEAKER) (test code = 1819) 35.0 POCT-GLUCOSE [id number] 18:23:02 Test Item Value Reference Range Interpretation Comments POC-GLUCOSE METER 131 mg/dL 70-110 H : TESTED A T [facility] 6720 (BEAKER) (test code = [facility] [employer] [facility], 1538) [address]: Plant Accountant/Techni salma ID = [id number] for RODRIGUEZ REILLY [id number] 16:35:38 Test Item Value Reference Range Interpretation Comments MAGNESIUM (BEAKER) (test code = 2.2 mg/dL 1.6-2.6 627) Plant Accountant ID - BSBASIC METABOLIC [id number] 16:35:37 Test Item Value Reference Range Interpretation [...] S NOT APPLICABLE FOR DIALYSIS PATIEN TS. Plant Accountant ID - BSCBC W/PLT COUNT & AUTO [id number] 16:18:59 Test Item Value Reference Range Interpretation [...] code = 2801) CSF CULTURE + GRAM [id number] 15:47:31 Test Item Value Reference Interpretation Comments [...] No organisms seen (BEAKER) (test code = 949782) GRAM STAIN RESULT No organisms seen (BEAKER) (test code = 612727) [id number] 14:01:00 Test Item Value Reference Range Interpretation Comments Haptoglobin (test code = 347 mg/dL 14-258 H 4542-7) BANDAR (test code = BANDAR) Plant Accountant ID - EOOperator ID - EOOperator ID - EO Lab Interpretation (test Abnormal code = 84270-9) [facility]HAPTOGLOBIN2022-02-22 14:01:00 Test Item Value Reference Range Interpretation Comments HAPTOGLOBIN (BEAKER) (test code = 347 mg/dL 14-258 H 366) Plant Accountant ID - EOOperator ID - EOOperator ID - EOPOCT-GLUCOSE [id number] 12:27:34 Test Item Value Reference Range Interpretation Comments POC-GLUCOSE METER 190 mg/dL 70-110 H : TESTED A T [facility] (BEAKER) (test code = [place], 1538) [address]: Plant Accountant/Techni salma ID = [id number] for RODRIGUEZ REILLY [id number] 12:23:44 Test Item Value Reference Range Interpretation Comments PHOSPHORUS (BEAKER) (test code = 4.5 mg/dL 2.3-4.7 604) Plant Accountant ID - ANÍBAL CHEPATIC FUNCTION [id number] 12:23:43 Test Item Value Reference Range Interpretation [...] (test code = 36 U/L 6-55 347) Plant Accountant ID - ANÍBAL CDirect AHG (ROSELINE)/Direct [id number] 11:58:00 Test Item Value Reference Range Interpretation Comments Direct AHG-IGG (test code = 1006-6) NEGATIVE Direct AHG-C3B, C3D (test code = NEGATVIE 1003-3) [facility] campusABORH, [id number] 11:41:00 Test Item Value Reference Range Interpretation Comments ABO Grouping (test code = 2588) O Rh Factor (test code = 2589) POS [facility] campusReticulocyte [id number] 11:35:23 Test Item Value Reference Range Interpretation Comments % Retic (test code = 3.1 % 0.5-1.8 H 53102-9) BANDAR (test code = BANDAR) Plant Accountant ID - [id number] Lab Interpretation (test Abnormal code = 91489-0) [facility] campusRETICULOCYTE [id number] 11:35:23 Test Item Value Reference Range Interpretation Comments RETICULOCYTE COUNT PCT (BEAKER) (test 3.1 % 0.5-1.8 H code = 575) Plant Accountant ID - [id number], CHEST, 1 VIEW, NON [id number] 11:33:00Reason for exam:->intubatedShould this be performed at the bedside?->Yes [facility] : 1950 Sex: MFINAL REPORT Exam: RAD, CHEST, 1 VIEW, NON DEPTDate: 06/27/2021 11:30 AM Indication:intubatedComparison: 06/26/2021 FINDINGS: Lines/Tubes/Devices: Endotracheal tube in place with distal tip measuring 4.2 cm above the alexia. Enteric tube in place seen coursing below the diaphragm. Status post sternotomy. Left upper extremity midline in place. Lungs/pleura:Borderline lung volumes. Pro minent vascular and interstitial markings. Patchy bilateral airspace opacities. Trace bilateral pleural effusions. No pneumothorax. Heart/Mediastinum:Unchanged Bones/Soft Tissues: No acute osseous abnormality. Upper abdomen: Unremarkable. IMPRESSION:Lines and tubes as above.Borderline lung volumes.Prominent vascular and interstitial markings. Congestion/interstitial edema.Patchy bilateral airspace opacities. May represent multifocal infectious process versus edema.Trace bilateral effusions. Signed: Kelvin Sosa MDReport Verified Date/Time: 06/27/2021 11:33:06 Reading Location: [facility] Radiology Reading Room POCT- GLUCOSE [id number] 09:51:06 Test Item Value Reference Range Interpretation Comments POC-GLUCOSE METER 252 mg/dL 70-110 H : [facility] (test code = [place], 1538) [address]: Plant Accountant/Techni salma ID = [id number] for RODRIGUEZ REILLY BLOOD [id number] 09:15:35 Test Item Value Reference Range Interpretation [...] CONCENTRATION Decreased (CELLAVISION)(BEAKER) (test code = 3438) Plant Accountant ID - Bayron comments: Slide comments:CBC W/PLT COUNT & AUTO [id number] 06:51:04 Test Item Value Reference Range Interpretation [...] 433 U/L 125-220 H code = 635) Plant Accountant ID - [id number] 03:54:59 Test Item Value Reference Range Interpretation Comments MAGNESIUM (BEAKER) (test code = 2.2 mg/dL 1.6-2.6 627) Plant Accountant ID - DBBASIC METABOLIC [id number] 03:54:58 Test Item Value Reference Range Interpretation [...] S NOT APPLICABLE FOR DIALYSIS PATIEN TS. Plant Accountant ID - [id number] 03:02:58 Test Item Value Reference Range Interpretation Comments PARTIAL THROMBOPLASTIN TIME 64.5 seconds 22.5-36.0 H (BEAKER) (test code = 760) BLOOD GAS, [id number] 02:33:54 Test Item Value Reference Range Interpretation [...] (BEAKER) (test code = 1819) 50.0 POCT-GLUCOSE [id number] 18:29:31 Test Item Value Reference Range Interpretation Comments POC-GLUCOSE METER 236 mg/dL 70-110 H : TESTED A T [facility] (BEAKER) (test code = [place], 1538) [address]: Plant Accountant/Techni salma ID = [id number] for [facility] (contract), [facility] BASIC METABOLIC [id number] 15:29:17 Test Item Value Reference Range Interpretation [...] S NOT APPLICABLE FOR DIALYSIS PATIEN TS. Plant Accountant ID - [id number] 15:29:17 Test Item Value Reference Range Interpretation Comments MAGNESIUM (BEAKER) (test code = 2.3 mg/dL 1.6-2.6 627) Plant Accountant ID - DBBLOOD GAS, [id number] 15:17:28 Test Item Value Reference Range Interpretation [...] 1819) 40.0 CBC W/PLT COUNT & AUTO [id number] 15:13:57 Test Item Value Reference Range Interpretation [...] code = 2801) RAD, ABDOMEN/KUB, 1 VIEW [id number] 14:07:00Reason for exam:->r/o ileusShould this be performed at the bedside?->Yes [facility] 1950 [...] the left mid abdomen. Signed: Kelvin Sosa MDReport Verified Date/Time: 06/26/2021 14:07:32 Reading Location: [facility] Radiology Reading Room POCT-GLUCOSE [id number] 12:54:58 Test Item Value Reference Range Interpretation Comments POC-GLUCOSE METER 211 mg/dL 70-110 H : TESTED A T [facility] 6720 (BEAKER) (test code = [place], 1538) [address]: Plant Accountant/Techni salma ID = [id number] for [facility] (contract), Suzanne mccray RAD, CHEST, 1 VIEW, NON [id number] 12:44:00Reason for exam:->ett positionShould this be performed at the bedside?->Yes [facility] 1950 [...] Sosa Verified Date/Time: 06/26/2021 12:44:05 Reading Location: [facility] Radiology Reading Room [id number] 12:13:42 Test Item Value Reference Range Interpretation Comments PARTIAL THROMBOPLASTIN TIME 57.5 seconds 22.5-36.0 H (BEAKER) (test code = 760) POCT-GLUCOSE [id number] 08:12:07 Test Item Value Reference Range Interpretation Comments POC-GLUCOSE METER 182 mg/dL 70-110 H : [facility] (test code = ARTUROJOCE Moss [facility], 1538) [address]: Plant Accountant/Techni salma ID = [id number] for [facility] (contract)Suzanne LACTATE DEHYDROGENASE (LDH)2021-06-26 05:24:45 Test Item Value Reference Range Interpretation Comments LACTATE DEHYDROGENASE (BEAKER) (test 323 U/L 125-220 H code = 635) Plant Accountant ID - EMILIO WHEPATIC FUNCTION [id number] 05:24:44 Test Item Value Reference Range Interpretation [...] (test code = 30 U/L 6-55 347) Plant Accountant ID Cory KRISHNAMURTHY [id number] 05:24:43 Test Item Value Reference Range Interpretation Comments PHOSPHORUS (BEAKER) (test code = 3.6 mg/dL 2.3-4.7 604) Plant Accountant ID Cory KRISHNAMURTHY WBASIC METABOLIC [id number] 05:24:42 Test Item Value Reference Range Interpretation [...] S NOT APPLICABLE FOR DIALYSIS PATIEN TS. Plant Accountant ID Cory KRISHNAMURTHY [id number] 05:24:42 Test Item Value Reference Range Interpretation Comments MAGNESIUM (BEAKER) (test code = 2.2 mg/dL 1.6-2.6 627) Plant Accountant ID Cory KRISHNAMURTHY WPT/[id number] 05:09:28 Test Item Value Reference Interpretation Comments Range Protime (test code = 14.1 See_Comment [Autom ated 5902-2) message] The system which generated this result transmitted reference range : 11.9 - 14.2 seconds. The reference range was not used to interpret this result as normal/abnormal . INR (test code = 1.11 See_Comment [Automated 0241-6) message] The system which generated this result transmitted reference range : <=5.90. The reference range was not used to interpret this result as normal/abnormal . PTT (test code = 58.5 See_Comment H [Automated 15649-5) message] The system which generated this result [...] valves. Lab Interpretation Abnormal (test code = 72252-1) [facility]PT/[id number] 05:09:28 Test Item Value Reference Range Interpretation [...] mechanical heart valves.CBC W/PLT COUNT & AUTO [id number] 05:04:10 Test Item Value Reference Range Interpretation [...] (BEAKER) (test code = 2801) BLOOD GAS, [id number] 04:58:03 Test Item Value Reference Range Interpretation [...] FIO2 (BEAKER) (test code = 1819) 50.0 [id number] 00:51:37 Test Item Value Reference Range Interpretation Comments PARTIAL THROMBOPLASTIN TIME 99.4 seconds 22.5-36.0 H (BEAKER) (test code = 760) VANCOMYCIN LEVEL, [id number] 00:49:36 Test Item Value Reference Range Interpretation Comments VANCOMYCIN TROUGH (BEAKER) (test 24.3 ug/mL 10.0-20.0 H code = 522) Plant Accountant ID - DBCBC W/PLT COUNT & AUTO [id number] 00:47:38 Test Item Value Reference Range Interpretation [...] PERCENT (BEAKER) (test code = 2801) POCT-GLUCOSE [id number] 00:14:13 Test Item Value Reference Range Interpretation Comments POC-GLUCOSE METER 186 mg/dL 70-110 H : TESTED A T [facility] (BEAKER) (test [facility] = [facility], 1538) [address]: Plant Accountant/Techni salma ID = [id number] for Jair garrett (contract)[employer] MENINGITIS/ENCEPHALITIS [id number] 18:37:00 Test Item Value Reference Range Interpretation Comments E COLI K1 (test code = Not detected Not detected 48588-7) HAEMOPHILUS INFLUENZAE Not detected Not detected (test code = 68604-6) LISTERIA MONOCYTOGENES Not detected Not detected (test code = 31418-7) NEISSERIA MENINGITIDIS Not detected Not detected (test code = 05089-4) STREPTOCOCCUS Not detected Not detected AGALACTIAE (test code = 80052-3) STREPTOCOCCUS Not detected Not detected PNEUMONIAE (test code = 21858-5) Cytomegalovirus (CMV) Not detected Not detected (test code = 44444-0) ENTEROVIRUS (test code Not detected Not detected = 71031-3) Human herpesvirus 6 Not detected Not detected (HHV-6) (test code = 39010-3) Herpes simplex virus Not detected Not detected 1(HSV-1) (test code = 80713-8) HERPES SIMPLEX VIRUS Not detected Not detected 2(HSV-2) (test code = 27368-5) Human parechovirus Not detected Not detected (test code = 94493-7) Varicella-zoster virus Not detected Not detected (VZV) (test code = 89262-0) Cryptococcus Not detected Not detected neoformans/gattii (test code = 93743-7) BANDAR (test code = BANDAR) The performance [...] required. This sample was tested at the [facility] using the [employer] Meningitis Encephalitis Panel. It is FDA cleared and has been verified and approved by the [facility] for clinical use. This laboratory is CLIA-certified and [employer] (CAP)-accredited to perform high complexity testing. Lab Interpretation Normal (test code = 82273-1) [facility] campusMENINGITIS/ENCEPHALITIS [id number] 18:37:00 Test Item Value Reference Range Interpretation Comments ESCHERICHIA COLI K1 (test code = Not detected Not detected 20160204) HAEMOPHILUS INFLUENZAE (test Not detected Not detected code = 3642074) LISTERIA MONOCYTOGENES (test Not detected Not detected code = 2014347) NEISSERIA MENINGITIDIS (test Not detected Not detected code = 5598688) STREPTOCOCCUS AGALACTIAE (test Not detected Not detected code = 9648071) STREPTOCOCCUS PNEUMONIAE (test Not detected Not detected code = 5393001) CYTOMEGALOVIRUS (CMV) (test code Not detected Not detected = 8242295) ENTEROVIRUS (test code = Not detected Not detected 7108689) HUMAN HERPESVIRUS 6 (HHV-6) Not detected Not detected (test code = 3010901) HERPES SIMPLEX VIRUS 1(HSV-1) Not detected Not detected (test code = 5119030) HERPES SIMPLEX VIRUS 2(HSV-2) Not detected Not detected (test code = 8296487) HUMAN PARECHOVIRUS (test code = Not detected Not detected 20160307) VARICELLA-ZOSTER VIRUS (VZV) Not detected Not detected (test code = 8498290) CRYPTOCOCCUS NEOFORMANS/GATTII Not detected Not detected (test code = 1725289) The performance of this test has not [...] required. This sample was tested at the [facility] using the [employer] MeningitisEncephalitis Panel. It is FDA cleared and has been verified and approved by the [facility] for clinical use. This laboratory is CLIA-certified and [employer] [place] [employer] g[employer] (CAP)-accredited to perform high complexity testing.POCT-GLUCOSE METER 2021-06-25 17:51:35 Test Item Value Reference Range Interpretation Comments POC-GLUCOSE METER 269 mg/dL 70-110 H : TESTED A T [facility] 6720 (BEAKER) (test code = BREEZY [place] [facility], 1538) [address]: Plant Accountant/Techni salma ID = [id number] for Osito jones (contract) Sam nancy BLOOD CULTURE IDENTIFICATION [id number] 17:50:57 Test Item Value Reference Interpretation Comments [...] Not detected Not detected (test code = 1485264) STREPTOCOCCUS (test code Not detected Not detected = 7367980) STREPTOCOCCUS AGALACTIAE Not detected Not detected (GROUP B) (test code = 9573779) STREPTOCOCCUS PNEUMONIAE Not detected Not detected (test code = 7517757) STREPTOCOCCUS PYOGENES Not detected Not detected (GROUP A) (test code = 1514956) ACINETOBACTER BAUMANNII Not detected Not detected (test code = 2070231) HAEMOPHILUS INFLUENZAE Not detected Not detected (test code = 0273298) NEISSERIA MENINGITIDIS Not detected Not detected (test code = 0028854) ENTEROBACTERIACEAE (test Not detected Not detected code = 6279678) ENTEROBACTER CLOACOE Not detected Not detected COMPLEX (test code = 3083708) KLEBSIELLA OXYTOCA (test Not detected Not detected code = 0054370) KLEBSIELLA PNEUMONIAE Not detected Not detected (test code = 1650) PROTEUS (test code = Not detected Not detected 4214303) SERRATIA MARCESCENS Not detected Not detected (test code = 9518248) SHIRIN ALBICANS (test Not detected Not detected code = 1349280) SHIRIN GLABRATA (test Not detected Not detected code = 6281258) SHIRIN KRUSEI (test Not detected Not detected code = 4389195) SHIRIN PARAPSILOSIS Not detected Not detected (test code = 6621184) SHIRIN TROPICALIS (test Not detected Not detected code = 5525358) ESCHERICHIA COLI (test Not detected Not detected code = 3434282) METHICILLIN-RESISTANCE Detected Not detected A Note: Antimicrobial GENE (test code = resistance can 9643201) occur via multi ple mechanisms. A N ot Detected result for the Graphene[employer] antimicrobial resistance gene assays does not indicate antimicrobial susceptibility. Subculturing is required for species identification and susceptibility testing of isolates. VANCOMYCIN-RESISTANCE GENE (test code = 7978018) CARBAPENEM-RESISTANCE GENE (test code = 1174392) ENTEROCOCCUS-BEAKER Not detected Not detected (test code = 1202323) PSEUDOMONAS Not detected Not detected AERUGINOSA-BEAKER (test code = 5184366) Other bacteria and resistance markers not targeted by this PCR panel cannot be excluded; therefore clinical correlation and follow up of serology, culture results, and other molecular studies is required. The results are not intended to be used as the sole means for clinical diagnosis or patient management decisions. This sample was tested at the [facility] using the [employer] Blood Culture ID Panel. It is FDA cleared and has been verified and approved by the [facility] for clinical use. This laboratory is CLIA-certified and College ofAmerican Pathologists (CAP)-accredited to perform high complexity testing.BASIC METABOLIC [id number] 17:13:49 Test Item Value Reference Range Interpretation [...] S NOT APPLICABLE FOR DIALYSIS PATIEN TS. Plant Accountant ID - JAKE [id number] 17:13:17 Test Item Value Reference Range Interpretation Comments MAGNESIUM (BEAKER) 2.4 mg/dL 1.6-2.6 Specimen moderately (test code = 627) hemolyzed Plant Accountant ID - JAKE MCBC W/PLT COUNT & AUTO [id number] 17:06:41 Test Item Value Reference Range Interpretation [...] 0-1 PERCENT (BEAKER) (test code = 2801) [id number] 17:02:37 Test Item Value Reference Range Interpretation Comments PARTIAL THROMBOPLASTIN TIME 69.1 seconds 22.5-36.0 H (BEAKER) (test code = 760) BLOOD [id number] 17:00:56 Test Item Value Reference Range Interpretation Comments CULTURE (BEAKER) (test No growth in 5 days code = 1095) The specimen volume collected for this blood culture was below the optimum (10 mL per bottle or 20 mL total). Use of lower volumes may adversely affect recovery and/or detection times of some organisms.BLOOD GAS, [id number] 16:46:57 Test Item Value Reference Range Interpretation [...] FIO2 (BEAKER) (test code = 1819) 60.0 [id number] 13:29:22 Test Item Value Reference Range Interpretation Comments PARTIAL THROMBOPLASTIN TIME 158.1 seconds 22.5-36.0 HH (BEAKER) (test code = 760) Osmolality, [id number] 13:22:03 Test Item Value Reference Range Interpretation Comments Osmolality Serum (test 339 See_Comment H [Aut omated message] code = 2692-2) The system [facility] generated this result transmitted ref erence range: 275 - 29 5 mOsm/kg. The reference range was not used to int erpret this result as normal/abnormal . Lab Interpretation (test Abnormal code = 03644-5) [facility] campusOSMOLALITY, [id number] 13:22:03 Test Item Value Reference Range Interpretation Comments OSMOLALITY, SERUM (BEAKER) (test 339 mOsm/kg 275-295 H code = 615) Osmolality, [id number] 12:59:18 Test Item Value Reference Range Interpretation Comments Osmolality, Ur (test code 536 See_Comment [ Automated message] = 2695-5) The system [employer] h generated this result transmitted ref erence range: 50-1,200 mOsm/kg mOsm/kg . The reference range was not used to int erpret this result as normal/abnormal . Lab Interpretation (test Normal code = 16874-6) [facility] campusOSMOLALITY, [id number] 12:59:18 Test Item Value Reference Range Interpretation Comments OSMOLALITY URINE 536 mOsm/kg See_Comment [Automated message] (BEAKER) (test code = The sy stem which 614) generated this result transmitted ref erence range: 50-1,200 mOsm/kg. The reference range was not used to int erpret this result as normal/abnormal . POCT-GLUCOSE [id number] 12:58:04 Test Item Value Reference Range Interpretation Comments POC-GLUCOSE METER 209 mg/dL 70-110 H : TESTED A T [facility] 6720 (BEAKER) (test code = [place], 1538) [address]: Plant Accountant/Techni salma ID = [id number] for Osito jones (contract)Sam RAD, CHEST, 1 VIEW, NON [id number] 11:16:00Reason for exam:->Post-opShould this be performed at the bedside?->Yes [facility] 1950 Sex: [...] hazy opacity, possibly atelectasis. Signed: Clayton Vargas MDReport Verified Date/Time: 06/25/2021 11: 16:06 Reading Location: [address] Consult Reading Room RAD, ABDOMEN/KUB, 1 VIEW [id number] 10:57:00Reason for exam:->ileusShould this be performed at the bedside?->Yes[facility] : 1950 Sex: MFINAL [...] Verified Date/Time: 06/25/2021 10:57:06 Reading Location: [facility] C0[facility] Ortho Consult Reading Room [id number] 07:07:59 Test Item Value Reference Range Interpretation Comments PARTIAL THROMBOPLASTIN TIME 69.3 seconds 22.5-36.0 H (BEAKER) (test code = 760) POCT-GLUCOSE [id number] 05:50:40 Test Item Value Reference Range Interpretation Comments POC-GLUCOSE METER 200 mg/dL 70-110 H : TESTED A T [facility] 6720 (BEAKER) (test code = [place], 1538) [address]: Plant Accountant/Techni salma ID = [id number] for Se ramirez (contract)Vandana ice BASIC METABOLIC [id number] 05:26:47 Test Item Value Reference Range Interpretation [...] S NOT APPLICABLE FOR DIALYSIS PATIEN TS. Plant Accountant ID - JAKE EPATIC FUNCTION [id number] 05:18:03 Test Item Value Reference Range Interpretation [...] (test code = 32 U/L 6-55 347) Plant Accountant ID - JAKE MLACTATE DEHYDROGENASE (LDH)2021-06-25 05:18:03 Test Item Value Reference Range Interpretation Comments LACTATE DEHYDROGENASE (BEAKER) (test 293 U/L 125-220 H code = 635) Plant Accountant ID - JAKE [id number] 05:18:02 Test Item Value Reference Range Interpretation Comments PHOSPHORUS (BEAKER) (test code = 3.8 mg/dL 2.3-4.7 604) Plant Accountant ID - JAKE [id number] 05:18:01 Test Item Value Reference Range Interpretation Comments MAGNESIUM (BEAKER) (test code = 2.3 mg/dL 1.6-2.6 627) Plant Accountant ID - JAKE MCBC W/PLT COUNT & AUTO [id number] 05:14:08 Test Item Value Reference Range Interpretation [...] (BEAKER) (test code = 2801) BLOOD GAS, [id number] 04:53:39 Test Item Value Reference Range Interpretation [...] FIO2 (BEAKER) (test code = 1819) 60.0 [id number] 02:24:21 Test Item Value Reference Range Interpretation [...] is 2.5-3.5 for patients with mechanical heart valves.[id number] 02:24:20 Test Item Value Reference Range Interpretation Comments PARTIAL THROMBOPLASTIN TIME 35.4 seconds 22.5-36.0 (BEAKER) (test code = 760) VANCOMYCIN LEVEL, [id number] 01:16:27 Test Item Value Reference Range Interpretation Comments VANCOMYCIN TROUGH (BEAKER) (test 22.9 ug/mL 10.0-20.0 H code = 522) Plant Accountant ID - [id number] 00:31:42 Test Item Value Reference Range Interpretation Comments PARTIAL THROMBOPLASTIN TIME 77.5 seconds 22.5-36.0 H (BEAKER) (test code = 760) POCT-GLUCOSE [id number] 00:31:05 Test Item Value Reference Range Interpretation Comments POC-GLUCOSE METER 178 mg/dL 70-110 H : TESTED A T [facility] 6720 (BEAKER) (test code = [facility], 1538) [address]: Plant Accountant/Techni salma ID = [id number] for Se ramirez (contract)Vandana [id number] 21:35:51 Test Item Value Reference Range Interpretation Comments PARTIAL THROMBOPLASTIN TIME 140.6 seconds 22.5-36.0 H (BEAKER) (test code = 760) POCT-GLUCOSE [id number] 18:02:05 Test Item Value Reference Range Interpretation Comments POC-GLUCOSE METER 158 mg/dL 70-110 H : TESTED A T [facility] 6720 (BEAKER) (test code = [facility], 1538) 17008: Plant Accountant/Techni salma ID = [id number] for RODRIGUEZ REILLY BASIC METABOLIC [id number] 17:52:37 Test Item Value Reference Range Interpretation [...] S NOT APPLICABLE FOR DIALYSIS PATIEN TS. Plant Accountant ID - DBBLOOD GAS, [id number] 17:18:29 Test Item Value Reference Range Interpretation [...] Echo W/Doppler(CW/PW/Color)2021-06-24 17:08:23Ejection FractionSLEH ECHO HEARTLAB MKCKESSON [facility]OL2022-[facility]-19 15:24:04 Test Item Value Reference Range Interpretation Comments CORTISOL, TOTAL (BEAKER) (test 22.3 ug/dL 3.7-19.4 H code = 2755) Plant Accountant ID - [id number] 15:09:23 Test Item Value Reference Range Interpretation Comments PARTIAL THROMBOPLASTIN TIME 92.9 seconds 22.5-36.0 H (BEAKER) (test code = 760) SPUTUM CULTURE + GRAM [id number] 15:01:52 Test Item Value Reference Interpretation Comments [...] >25 epithelial (BEAKER) (test code = cells 091318) GRAM STAIN RESULT 1+ gram positive (BEAKER) (test code = rods 601338) GRAM STAIN RESULT 3+ gram positive (BEAKER) (test code = cocci in pairs and 417412) clusters GRAM STAIN RESULT 1+ gram positive (BEAKER) (test code = cocci in chains 626772) GRAM STAIN RESULT 1+ yeast (BEAKER) (test code = 697426) 3+ Normal respiratory ignacia presentLACTIC ACID, [id number] 14:58:59 Test Item Value Reference Range Interpretation Comments LACTATE BLOOD 0.7 mmol/L 0.5-2.2 Specimen sligh tly ARTERIAL (2) (BEAKER) hemoly zed (test code = 2874) Plant Accountant ID - DBRAD, ABDOMEN/KUB, 1 VIEW [id number] 14:09:00Reason for exam:- >og tube placement [facility] : 1950 Sex: MFINAL REPORT TECHNIQUE: Single View of the Abdomen. INDICATION: og tube placement. COMPARISON: Abdominal radiograph from 06/24/2021. FINDINGS/IMPRESSION: Interval removal of the feeding tube with interval placement of an OG tube. Given the projection of the tubing, it is difficult totell if the tip is over the third [...] Verified Date/Time: 06/24/2021 14:09:48 Reading Location: [facility] C013Y CT Body Reading Room POCT-GLUCOSE [id number] 12:07:23 Test Item Value Reference Range Interpretation Comments POC-GLUCOSE METER 172 mg/dL 70-110 H : TESTED A T [facility] 6720 (BEAKER) (test code = BREEZY Moss [facility], 1538) 90797: Plant Accountant/Techni salma ID = [id number] for RODRIGUEZ REILLY BLOOD GAS, [id number] 11:15:51 Test Item Value Reference Range Interpretation [...] = 1819) 80.0 RAD, ABDOMEN/KUB, 1 VIEW [id number] 11:02:00Reason for exam:->feeding [facility] : 1950 [...] Verified Date/Time: 06/24/2021 11:02:46 Reading Location: [facility] C013X Ortho Consult Reading Room RAD, ABDOMEN/KUB, 1 VIEW [id number] 10:54:00 Reason for exam:->feeding tube placement [facility] : 1950 Sex: MFINAL REPORT TECHNIQUE: Single View of the Abdomen. INDICATION: feeding tube placement. COMPARISON: KUB from 06/17/2021. CT from 06/18/2021 FINDINGS/IMPRESSION: A feeding tube has its tip over the gastric fundus. There are prominent loops of small and large bowel in a pattern which isconcerning for an 8 on image ileus. The partially calcified left renal lesion is similar to prior examinations. A radiopaque structure over the right lower quadrant is nonspecific but could be ingestedmaterial. No acute bone abnormality. Please refer to the recent chest radiograph regarding intrathoracic findings. Signed: Fly Bean MDReport Verified Date/Time: 06/24/2021 10:54:19 Reading Location: [place] [address] Body Reading Room [id number] 09:21:09 Test Item Value Reference Range Interpretation Comments PROTIME (BEAKER) (test 18.9 seconds 11.9-14.2 H code = 759) INR (BEAKER) (test 1.61 See_Comment [Automat ed code = 370) message] The sy stem which generated this result transmitted reference range : <=5.90. The reference range was not used to interpret this result as normal/abnormal . PARTIAL THROMBOPLASTIN 64.4 seconds 22.5-36.0 H TIME (BEAKER) (test code = 760) RECOMMENDED COUMADIN/WARFARIN INR THERAPY RANGESSTANDARD DOSE: 2.0 - 3.0 Includes: PROPHYLAXIS for venous thrombosis, systemic embolization; TREATMENT for venous thrombosis and/or pulmonary embolus.HIGH RISK: Target INR is 2.5-3.5 for patients with mechanical heart valves.BLOOD GAS, [id number] 08:53:13 Test Item Value Reference Range Interpretation [...] 1819) 90.0 RAD, CHEST, 1 VIEW, NON [id number] 07:43:00Reason for exam:- >hypoxiaShould this be performed at the bedside?->Yes [facility] : 1950 Sex: MFINAL REPORT RAD, CHEST, 1 VIEW, NON DEPT INDICATION: hypoxia COMPARISON: Prior day's exam FINDINGS: Portable frontal view of the chest. IMPRESSION: Support Lines: ET tube tip is 4 cm superior to the alexia. Feeding tube descends below the diaphragm. Lungs and pleura: Mild bibasilar atelectasis. No significant pneumothorax. Heart and mediastinum: Stable contours. Stable surgical changes. Additional findings: None. Signed: Luke Pfeiffer MDReppemiscot memorial health systems Verified Date/Time: 06/24/2021 07:43:09 BASIC METABOLIC [id number] 06:17:56 Test Item Value Reference Range Interpretation [...] S NOT APPLICABLE FOR DIALYSIS PATIEN TS. Plant Accountant ID - JAKE MHEPATIC FUNCTION [id number] 06:13:50 Test Item Value Reference Range Interpretation [...] (test code = 42 U/L 6-55 347) Plant Accountant ID - JKAE MLACTATE DEHYDROGENASE (LDH)2021-06-24 06:13:50 Test Item Value Reference Range Interpretation Comments LACTATE DEHYDROGENASE (BEAKER) (test 453 U/L 125-220 H code = 635) Plant Accountant ID - JAKE [id number] 06:13:49 Test Item Value Reference Range Interpretation Comments PHOSPHORUS (BEAKER) (test code = 5.6 mg/dL 2.3-4.7 H 604) Plant Accountant ID - JAKE [id number] 06:13:48 Test Item Value Reference Range Interpretation Comments MAGNESIUM (BEAKER) (test code = 2.5 mg/dL 1.6-2.6 627) Plant Accountant ID - JAKE MPOCT-GLUCOSE [id number] 05:39:12 Test Item Value Reference Range Interpretation Comments POC-GLUCOSE METER 208 mg/dL 70-110 H : TESTED A [facility] [address] (BEAKER) (test code = [place], 1538) [address]: Plant Accountant/Techni salma ID = [id number] for Pola rios (contract)Bar RAD, CHEST, 1 VIEW, NON [id number] 05:28:00Reason for exam:- >currentShould this be performed at the bedside?->Yes [facility] : 1950 Sex: MFINAL REPORT RAD, CHEST, 1 VIEW, NON DEPT INDICATION: current COMPARISON: June 20, 2021 FINDINGS: Portable frontal view of the chest. IMPRESSION: Support Lines: Enteric tube tip overlies the mid esophagus for which advancement into the stomach is advised.Lungs and pleura: Scattered interstitial opacities, likely edema or pneumonitis, similar in appearance. No large effusion. Nopneumothorax.Heart and mediastinum: Stable contours. Additional findings: None. Signed: Maximilian Ndiaye MDReport Verified Date/Time: 06/24/2021 05:28:23 CBC W/PLT COUNT & AUTO [id number] 05:25:13 Test Item Value Reference Range Interpretation [...] (BEAKER) (test code = 2801) BLOOD GAS, [id number] 05:18:59 Test Item Value Reference Range Interpretation [...] (test code = 1819) 50.0 VANCOMYCIN LEVEL, [id number] 03:22:40 Test Item Value Reference Range Interpretation Comments VANCOMYCIN TROUGH (BEAKER) (test 18.0 ug/mL 10.0-20.0 code = 522) Plant Accountant ID - JAKE MPOCT-GLUCOSE [id number] 23:43:05 Test Item Value Reference Range Interpretation Comments POC-GLUCOSE METER 167 mg/dL 70-110 H : TESTED A T [facility] 6720 (BEAKER) (test code = [facility], 153) [address]: Plant Accountant/Techni salma ID = [id number] for Pola rios (contract)Bar POCT-GLUCOSE [id number] 20:47:23 Test Item Value Reference Range Interpretation Comments POC-GLUCOSE METER 128 mg/dL 70-110 H : TESTED A T [facility] 6720 (BEAKER) (test code = [facility], 153) 93129: Plant Accountant/Techni salma ID = [id number] for Kuldeep luna (contract), Sondra xis CSF cell count with [id number] 19:04:55 Test Item Value Reference Range Interpretation Comments Appearance (test code = Clear Clear 04345-4) Color (test code = Colorless Colorless 69595-0) RBCs (test code = 13 See_Comment H [Automate d message] 792-2) The system [employer] generated this result transmit oziel reference range : 0 - 5 /cu mm. The reference range was not used to interpret this result as normal/abnormal . WBCs (test code = 1 See_Comment [Automate d message] 806-0) The system [employer] generated this result transmit oziel reference range : <=5 /cu mm. The reference range was not used to interpret this result as normal/abnormal . RBCs Fresh? (test code 100% Fresh = 66232-8) # of Cells Diff'd (test 70 code = 15458-6) % Neutros (test code = 9 % 0-5 H 72738-8) % Lymphs (test code = 51 % 40-80 92158-8) % Monos (test code = 40 % 15-45 439) % Eos (test code = 360) 0 % See_Comment [Au tomated message] The system [employer] generated this result transmit oziel reference range : <=0. The refere nce range was not u sed to interpret th is result as normal/abnormal . % Baso (test code = 0 % See_Comment [Automa oziel message] 440) The system [employer] generated this result transmit oziel reference range : <=0. The refere nce range was not u sed to interpret th is result as normal/abnormal . Tube Number (test code 1 = 2677) Lab Interpretation Abnormal (test code = 52638-9) [facility] W/[id number] 19:04:55 Test Item Value Reference Range Interpretation Comments APPEARANCE CSF Clear Clear (BEAKER) (test code = 407) COLOR CSF (BEAKER) Colorless Colorless (test code = 408) RBC CSF (BEAKER) (test 13 /cu mm 0-5 H code = 409) WBC CSF (BEAKER) (test 1 /cu mm See_Comment [Aut omated message] code = 1020) The system [employer] generated this result transmitted ref erence range: [...] code = 2678) HIV-1 Antigen with HIV-1/2 [id number] 18:58:32 Test Item Value Reference Range Interpretation Comments HIV-1 Antigen with HIV 1&2 Nonreactive Nonreactive Antibody (test code = 05067-1) BANDAR (test code = BANDAR) Plant Accountant ID - DB Lab Interpretation (test Normal code = 53978-8) [facility]HIV-[facility] ANTIGEN WITH HIV-1/2 [id number] 18:58:32 Test Item Value Reference Range Interpretation Comments HIV-1 ANTIGEN WITH HIV 1\\T\\2 Nonreactive Nonreactive ANTIBODY (2) (BEAKER) (test code = 2586) Plant Accountant ID - DBPOCT-GLUCOSE [id number] 18:23:04 Test Item Value Reference Range Interpretation Comments POC-GLUCOSE METER 152 mg/dL 70-110 H : TESTED A T [facility] 6720 (BEAKER) (test code = [place], 1538) 905[address]: Plant Accountant/Techni salma ID = [id number] for JUAN JOSE WHITAKER BASIC METABOLIC [id number] 18:09:49 Test Item Value Reference Range Interpretation [...] S NOT APPLICABLE FOR DIALYSIS PATIEN TS. Plant Accountant ID - BS.FFWTXVBDZ7859-25-09 18:09:31 Test Item Value Reference Range Interpretation Comments MAGNESIUM (BEAKER) (test code = 2.2 mg/dL 1.6-2.6 627) Plant Accountant ID - BS.Protein, [id number] 18:07:04 Test Item Value Reference Range Interpretation Comments Protein, CSF (test code = 17 mg/dL 15-45 2880-3) BANDAR (test code = BANDAR) Plant Accountant ID - DB Lab Interpretation (test Normal code = 44586-6) [facility] campusPROTEIN, [id number] 18:07:04 Test Item Value Reference Range Interpretation Comments PROTEIN CSF (BEAKER) (test code = 17 mg/dL 15-45 378) Plant Accountant ID - DBGlucose, [id number] 18:07:03 Test Item Value Reference Range Interpretation Comments Glucose, CSF (test code = 162 mg/dL 40-70 H 2342-4) BANDAR (test code = BANDAR) Plant Accountant ID - DB Lab Interpretation (test Abnormal code = 80961-1) [facility] campusGLUCOSE, [id number] 18:07:03 Test Item Value Reference Range Interpretation Comments GLUCOSE CSF (BEAKER) (test code = 162 mg/dL 40-70 H 406) Plant Accountant ID - DBPT/[id number] 14:44:05 Test Item Value Reference Range Interpretation Comments PROTIME (BEAKER) (test 14.6 seconds 11.9-14.2 H code = 759) INR (BEAKER) (test 1.16 See_Comment [Automat ed code = 370) message] The sy stem which generated this result transmitted reference range : <=5.90. The reference range was not used to interpret this result as normal/abnormal . PARTIAL THROMBOPLASTIN 27.9 seconds 22.5-36.0 TIME (BEAKER) (test code = 760) RECOMMENDED COUMADIN/WARFARIN INR THERAPY RANGESSTANDARD DOSE: 2.0 - 3.0 Includes: PROPHYLAXIS for venous thrombosis, systemic embolization; TREATMENT for venous thrombosis and/or pulmonary embolus.HIGH RISK: Target INR is 2.5-3.5 for patients with mechanical heart valves.PROTHROMBIN TIME/[id number] 14:43:28 Test Item Value Reference Range Interpretation Comments PROTIME (SPAKER) 14.6 seconds 11.9-14.2 H (test code = 759) INR (SPAKER) (test 1.16 See_Comment [Automat ed message] code = 370) The system [place] generated this result transmitted ref erence range: <=5.90. The reference range was not used to int erpret this result as normal/abnormal . RECOMMENDED COUMADIN/WARFARIN INR THERAPY RANGESSTANDARD DOSE: 2.0 - 3.0 Includes: PROPHYLAXIS for venous thrombosis, systemic embolization; TREATMENT for venous thrombosis and/or pulmonary embolus.HIGH RISK: Target INR is 2.5-3.5 for patients with mechanical heart valves.POCT-GLUCOSE [id number] 12:13:25 Test Item Value Reference Range Interpretation Comments POC-GLUCOSE METER 331 mg/dL 70-110 H : Notified RN/: (SPSTU) (test code = TESTED AT [facility] 2610 7073) [facility], [address]: Plant Accountant/Techni salma ID = [id number] for JUAN JOSE WHITAKER LACTATE DEHYDROGENASE (LDH)2021-06-23 11:04:38 Test Item Value Reference Range Interpretation Comments LACTATE DEHYDROGENASE 532 U/L 125-220 H Specim en slightly (BEAKER) (test code = hemoly zed 635) Plant Accountant ID - [id number] 11:03:51 Test Item Value Reference Range Interpretation Comments PARTIAL THROMBOPLASTIN TIME 45.8 seconds 22.5-36.0 H (SPAKER) (test code = 760) HEPATIC FUNCTION [id number] 11:00:15 Test Item Value Reference Range Interpretation [...] Specimen slightly (test code = 347) hemolyzed Plant Accountant ID - [id number] 11:00:13 Test Item Value Reference Range Interpretation Comments PHOSPHORUS (BEAKER) 3.9 mg/dL 2.3-4.7 Specimen slightly (test code = 604) hemolyzed Plant Accountant ID - DBBASIC METABOLIC [id number] 11:00:13 Test Item Value Reference Range Interpretation [...] S NOT APPLICABLE FOR DIALYSIS PATIEN TS. Plant Accountant ID - [id number] 11:00:12 Test Item Value Reference Range Interpretation Comments MAGNESIUM (BEAKER) 2.4 mg/dL 1.6-2.6 Specimen slightly (test code = 627) hemolyzed Plant Accountant ID - DBCBC W/PLT COUNT & AUTO [id number] 10:36:54 Test Item Value Reference Range Interpretation [...] PERCENT (BEAKER) (test code = 2801) POCT-GLUCOSE [id number] 09:44:46 Test Item Value Reference Range Interpretation Comments POC-GLUCOSE METER 298 mg/dL 70-110 H : TESTED A T [facility] 6720 (BEAKER) (test code = [facility], 1538) [address]: Plant Accountant/Techni salma ID = [id number] for Cee chery (contract)Suzanne Urine [id number] 08:51:25 Test Item Value Reference Range Interpretation Comments Result (test code = 6463-4) No growth BANDAR (test code = BANDAR) [facility] [id number] 08:01:05 Test Item Value Reference Range Interpretation Comments CULTURE (BEAKER) (test No growth in 5 days code = 1095) The specimen volume collected for this blood culture was below the optimum (10 mL per bottle or 20 mL total). Use of lower volumes may adversely affect recovery and/or detection times of some organisms.POCT-GLUCOSE [id number] 05:38:04 Test Item Value Reference Range Interpretation Comments POC-GLUCOSE METER 270 mg/dL 70-110 H : TESTED A T [facility] 6720 (BEAKER) (test code = [facility], 1538) [address]: Plant Accountant/Techni salma ID = [id number] for Sa isabel (contract)Yancy [id number] 03:25:04 Test Item Value Reference Range Interpretation Comments PARTIAL THROMBOPLASTIN TIME 65.8 seconds 22.5-36.0 H (BEAKER) (test code = 760) [id number] 02:13:51 Test Item Value Reference Range Interpretation Comments PARTIAL THROMBOPLASTIN TIME 158.4 seconds 22.5-36.0 HH (BEAKER) (test code = 760) POCT-GLUCOSE [id number] 23:25:31 Test Item Value Reference Range Interpretation Comments POC-GLUCOSE METER 343 mg/dL 70-110 H : TESTED A T [facility] 6720 (BEAKER) (test code = [place], 1538) [address]: Plant Accountant/Techni salma ID = [id number] for Floyd ty (contract), Byr on BASIC METABOLIC [id number] 17:18:25 Test Item Value Reference Range Interpretation [...] S NOT APPLICABLE FOR DIALYSIS PATIEN TS. Plant Accountant ID - [id number] 17:18:24 Test Item Value Reference Range Interpretation Comments MAGNESIUM (BEAKER) 2.1 mg/dL 1.6-2.6 Specimen markedly (test code = 627) hemolyzed Plant Accountant ID - DBGlucose, [id number] 17:18:23 Test Item Value Reference Range Interpretation Comments Glucose (test code = 2345-7) 241 mg/dL 70-105 H Lab Interpretation (test code = Abnormal 95772-9) [facility]GLUCOSE2022-02-17 17:18:23 Test Item Value Reference Range Interpretation Comments GLUCOSE RANDOM (BEAKER) (test code 241 mg/dL 70-105 H = 652) [id number] 16:59:38 Test Item Value Reference Range Interpretation Comments PARTIAL THROMBOPLASTIN TIME 66.5 seconds 22.5-36.0 H (BEAKER) (test code = 760) POCT-GLUCOSE [id number] 16:46:16 Test Item Value Reference Range Interpretation Comments POC-GLUCOSE METER 227 mg/dL 70-110 H : TESTED A T [facility] 6720 (BEAKER) (test code [facility], = 1538) [address]: Plant Accountant/Techni salma ID = [id number] for Alyssa ventura (contract), Radha calles BLOOD [id number] 15:00:39 Test Item Value Reference Range Interpretation Comments CULTURE (BEAKER) (test No growth in 5 days code = 1095) POCT-GLUCOSE [id number] 14:31:03 Test Item Value Reference Range Interpretation Comments POC-GLUCOSE METER 95 mg/dL 70-110 : TESTED A T [facility] 6720 (BEAKER) (test code = [facility], 1538) [address]: Plant Accountant/Techni salma ID = [id number] for Alyssa ventura (contract), Radha arizabejyoti POCT-GLUCOSE [id number] 11:45:31 Test Item Value Reference Range Interpretation Comments POC-GLUCOSE METER 100 mg/dL 70-110 : TESTED A T [facility] 6720 (BEAKER) (test code = [facility], 1538) [address]: Plant Accountant/Techni salma ID = [id number] for Karel jean (contract), Nos habjake [id number] 10:58:05 Test Item Value Reference Range Interpretation Comments PARTIAL THROMBOPLASTIN TIME 80.3 seconds 22.5-36.0 H (BEAKER) (test code = 760) BASIC METABOLIC [id number] 10:51:17 Test Item Value Reference Range Interpretation [...] S NOT APPLICABLE FOR DIALYSIS PATIEN TS. Plant Accountant ID - [id number] 10:49:23 Test Item Value Reference Range Interpretation Comments GLUCOSE RANDOM (BEAKER) (test code 149 mg/dL 70-105 H = 652) POCT-GLUCOSE [id number] 10:31:41 Test Item Value Reference Range Interpretation Comments POC-GLUCOSE METER 152 mg/dL 70-110 H : TESTED A T [facility] 6720 (BEAKER) (test code [facility], = 1538) [address]: Plant Accountant/Techni salma ID = [id number] for Alyssa lorenzo (contract), Radha zabeth POCT-GLUCOSE [id number] 09:12:18 Test Item Value Reference Range Interpretation Comments POC-GLUCOSE METER 167 mg/dL 70-110 H : TESTED A T [facility] 6720 (BEAKER) (test code [facility], = 1538) 18[address]: Plant Accountant/Techni salma ID = [id number] for Alyssa lorenzo (contract), Radha zabeth POCT-GLUCOSE [id number] 08:59:45 Test Item Value Reference Range Interpretation Comments POC-GLUCOSE METER 154 mg/dL 70-110 H : TESTED A T [facility] 6720 (BEAKER) (test code = [facility], 1538) [address]: Plant Accountant/Techni salma ID = [id number] for Se mckeoney (contract), Vandana ice POCT-GLUCOSE [id number] 08:59:39 Test Item Value Reference Range Interpretation Comments POC-GLUCOSE METER 173 mg/dL 70-110 H : TESTED A T [facility] 6720 (BEAKER) (test code = [facility], 1538) 49[address]: Plant Accountant/Techni salma ID = [id number] for Sa thomasiago (contract), Cry stal POCT-GLUCOSE [id number] 08:59:33 Test Item Value Reference Range Interpretation Comments POC-GLUCOSE METER 93 mg/dL 70-110 : TESTED A T [facility] 6720 (BEAKER) (test code = [facility], 1538) [address]: Plant Accountant/Techni salma ID = [id number] for Darrell delacruz (contract), Rangel brooke POCT-GLUCOSE [id number] 08:59:32 Test Item Value Reference Range Interpretation Comments POC-GLUCOSE METER 111 mg/dL 70-110 H : TESTED A T [facility] 6720 (BEAKER) (test code = [facility] Isa [facility], 1538) [address]: Plant Accountant/Techni salma ID = [id number] for Si ms (contract), Bill eya POCT-GLUCOSE [id number] 08:03:32 Test Item Value Reference Range Interpretation Comments POC-GLUCOSE METER 184 mg/dL 70-110 H : TESTED A T [facility] 6720 (BEAKER) (test code [facility], = 1538) [address]: Plant Accountant/Techni salma ID = [id number] for Alyssa lorenzo (contract), Radha calles (CELLAVISION MANUAL DIFF)2021-06-22 07:55:21 Test Item Value [...] CONCENTRATION Adequate (CELLAVISION)(BEAKER) (test code = 3438) Plant Accountant ID - Bayron comments: Slide comments:CBC W/PLT COUNT & AUTO [id number] 07:55:18 Test Item Value Reference Range Interpretation [...] 0-0 (BEAKER) (test code = 413) POCT-GLUCOSE [id number] 07:04:16 Test Item Value Reference Range Interpretation Comments POC-GLUCOSE METER 202 mg/dL 70-110 H : TESTED A T [facility] 6720 (BEAKER) (test code = [facility] [place], 1538) [address]: Plant Accountant/Techni salma ID = [id number] for Se ramirez (contract)Vandana POCT-GLUCOSE [id number] 05:56:59 Test Item Value Reference Range Interpretation Comments POC-GLUCOSE METER 172 mg/dL 70-110 H : TESTED A T [facility] 6720 (BEAKER) ([facility] = [facility] [place], 1538) [address]: Plant Accountant/Techni salma ID = [id number] for Pola rios (contract)Bar LACTATE DEHYDROGENASE (LDH)2021-06-22 05:20:19 Test Item Value Reference Range Interpretation Comments LACTATE DEHYDROGENASE 351 U/L 125-220 H Specim en slightly (BEAKER) (test code = hemoly zed 635) Plant Accountant ID - JULIETTE LHEPATIC FUNCTION [id number] 04:46:41 Test Item Value Reference Range Interpretation [...] Specimen slightly (test code = 347) hemolyzed Plant Accountant ID - PIAYA LBASIC METABOLIC [id number] 04:46:40 Test Item Value Reference Range Interpretation [...] S NOT APPLICABLE FOR DIALYSIS PATIEN TS. Plant Accountant ID - JULIETTE [id number] 04:46:39 Test Item Value Reference Range Interpretation Comments MAGNESIUM (BEAKER) 2.1 mg/dL 1.6-2.6 Specimen slightly (test code = 627) hemolyzed Plant Accountant ID - JULIETTE [id number] 04:46:39 Test Item Value Reference Range Interpretation Comments PHOSPHORUS (BEAKER) 3.7 mg/dL 2.3-4.7 Specimen slightly (test code = 604) hemolyzed Plant Accountant ID - JULIETTE [id number] 04:23:27 Test Item Value Reference Range Interpretation Comments PARTIAL THROMBOPLASTIN TIME 68.0 seconds 22.5-36.0 H (BEAKER) (test code = 760) BLOOD GAS, [id number] 04:12:56 Test Item Value Reference Range Interpretation [...] (BEAKER) (test code = 1819) 30.0 POCT-GLUCOSE [id number] 04:06:43 Test Item Value Reference Range Interpretation Comments POC-GLUCOSE METER 162 mg/dL 70-110 H : TESTED A T [facility] 6720 (BEAKER) (test code = [facility], 1538) 46[address]: Plant Accountant/Techni salma ID = [id number] for Sc gabriel (contract), Bar kuldip POCT-GLUCOSE [id number] 03:32:05 Test Item Value Reference Range Interpretation Comments POC-GLUCOSE METER 128 mg/dL 70-110 H : TESTED A T [facility] 6720 (BEAKER) (test code = [facility], [facility]8) [address]: Plant Accountant/Techni salma ID = [id number] for Se ramirez (contract), Vandana ice POCT-GLUCOSE [id number] 03:21:29 Test Item Value Reference Range Interpretation Comments POC-GLUCOSE METER 145 mg/dL 70-110 H : TESTED A T [facility] 6720 (BEAKER) (test code = [facility], 1538) 211[address]: Plant Accountant/Techni salma ID = [id number] for Sc gabriel (contract), Bar galiciay POCT-GLUCOSE [id number] 02:16:04 Test Item Value Reference Range Interpretation Comments POC-GLUCOSE METER 163 mg/dL 70-110 H : TESTED A T [facility] 6720 (BEAKER) (test code = [facility], 1538) 78859: Plant Accountant/Techni salma ID = [id number] for Sc gabriel (contract), Bar kuldip VANCOMYCIN LEVEL, [id number] 01:49:09 Test Item Value Reference Range Interpretation Comments VANCOMYCIN TROUGH (BEAKER) (test 19.7 ug/mL 10.0-20.0 code = 522) Plant Accountant ID - BSPOCT-GLUCOSE [id number] 00:14:03 Test Item Value Reference Range Interpretation Comments POC-GLUCOSE METER 185 mg/dL 70-110 H : TESTED A T [facility] 6720 (BEAKER) (test code = [facility], 1538) 254[address]: Plant Accountant/Techni salma ID = [id number] for Pola rios (contract)Bar POCT-GLUCOSE [id number] 23:17:39 Test Item Value Reference Range Interpretation Comments POC-GLUCOSE METER 218 mg/dL 70-110 H : TESTED A T [facility] 6720 (BEAKER) (test code = [facility], 1538) 55606: Plant Accountant/Techni salma ID = [id number] for Pola rois (contract)Bar BASIC METABOLIC [id number] 22:52:31 Test Item Value Reference Range Interpretation [...] S NOT APPLICABLE FOR DIALYSIS PATIEN TS. Plant Accountant ID - BSPOCT-GLUCOSE [id number] 22:15:38 Test Item Value Reference Range Interpretation Comments POC-GLUCOSE METER 217 mg/dL 70-110 H : TESTED A T [facility] 6720 (BEAKER) (test code = [facility], 1538) 35969: Plant Accountant/Techni salma ID = [id number] for Se ramirez (contract)Vandana POCT-GLUCOSE [id number] 21:29:38 Test Item Value Reference Range Interpretation Comments POC-GLUCOSE METER 200 mg/dL 70-110 H : TESTED A T [facility] 6720 (BEAKER) (test code = [facility], 1538) 840[address]: Plant Accountant/Techni salma ID = [id number] for Pola rios (contract), Bar christiansen POCT-GLUCOSE [id number] 20:36:29 Test Item Value Reference Range Interpretation Comments POC-GLUCOSE METER 147 mg/dL 70-110 H : TESTED A T [facility] 6720 (BEAKER) (test code = [facility], 1538) 88382: Plant Accountant/Techni salma ID = [id number] for Se ramirez (contract), Vandana ice POCT-GLUCOSE [id number] 20:07:43 Test Item Value Reference Range Interpretation Comments POC-GLUCOSE METER 149 mg/dL 70-110 H : TESTED A T [facility] 6720 (BEAKER) (test code = [facility], 1538) 28424: Plant Accountant/Techni salma ID = [id number] for Se ramirez (contract), Vandana ice BASIC METABOLIC [id number] 18:43:30 Test Item Value Reference Range Interpretation [...] S NOT APPLICABLE FOR DIALYSIS PATIEN TS. Plant Accountant ID - [id number] 18:43:29 Test Item Value Reference Range Interpretation Comments MAGNESIUM (BEAKER) 2.0 mg/dL 1.6-2.6 Specimen moderately (test code = 627) hemolyzed Plant Accountant ID - [id number] 18:22:25 Test Item Value Reference Range Interpretation Comments PARTIAL THROMBOPLASTIN TIME 58.7 seconds 22.5-36.0 H (BEAKER) (test code = 760) POCT-GLUCOSE [id number] 16:35:02 Test Item Value Reference Range Interpretation Comments POC-GLUCOSE METER 74 mg/dL 70-110 : TESTED A T [facility] 6720 (BEAKER) (test code = [facility], 1538) 989[address]: Plant Accountant/Techni salma ID = [id number] for Darrell iago (contract), Cry stal POCT-GLUCOSE [id number] 13:14:41 Test Item Value Reference Range Interpretation Comments POC-GLUCOSE METER 154 mg/dL 70-110 H : TESTED A T [facility] 6720 (BEAKER) (test code = [facility], 1538) 94084: Plant Accountant/Techni salma ID = [id number] for Sa ntiago (contract), Cry stal [id number] 12:57:49 Test Item Value Reference Range Interpretation Comments PARTIAL THROMBOPLASTIN TIME 63.0 seconds 22.5-36.0 H (BEAKER) (test code = 760) POCT-GLUCOSE [id number] 12:22:28 Test Item Value Reference Range Interpretation Comments POC-GLUCOSE METER 178 mg/dL 70-110 H : TESTED A T [facility] 6720 (BEAKER) (test code = [facility], 1538) 24626: Plant Accountant/Techni salma ID = [id number] for Si ms (contract), Bill eya BASIC METABOLIC [id number] 11:44:24 Test Item Value Reference Range Interpretation [...] S NOT APPLICABLE FOR DIALYSIS PATIEN TS. Plant Accountant ID - BSPOCT-GLUCOSE [id number] 11:28:28 Test Item Value Reference Range Interpretation Comments POC-GLUCOSE METER 204 mg/dL 70-110 H : TESTED A T [facility] 6720 (BEAKER) (test code = [place], 1538) [address]: Plant Accountant/Techni salma ID = [id number] for Evita ambrocio (contract)Bill HEMOGLOBIN AND [id number] 10:58:05 Test Item Value Reference Range Interpretation Comments HEMOGLOBIN (BEAKER) (test code = 9.6 GM/DL 13.7-17.5 L 410) HEMATOCRIT (BEAKER) (test code = 30.0 % 40.1-51.0 L 411) Plant Accountant ID - [id number] GAS, [id number] 10:46:43 Test Item Value Reference Range Interpretation [...] (BEAKER) (test code = 1819) 50.0 POCT-GLUCOSE [id number] 10:35:17 Test Item Value Reference Range Interpretation Comments POC-GLUCOSE METER 207 mg/dL 70-110 H : Notified RN/MD: (SPAKER) (test code = TESTED AT [facility] 6720 1538) [facility], [address]: Plant Accountant/Techni salma ID = [id number] for Si ms (contract), Bill schaefera POCT-GLUCOSE [id number] 09:36:48 Test Item Value Reference Range Interpretation Comments POC-GLUCOSE METER 188 mg/dL 70-110 H : Notified RN/MD: (BEAKER) (test code = TESTED AT [facility] 6720 1538) [facility], [address]: Plant Accountant/Techni salma ID = [id number] for Si ms (contract), Bill eya BLOOD [id number] 09:00:28 Test Item Value Reference Range Interpretation Comments CULTURE (BEAKER) (test No growth in 5 days code = 1095) The specimen volume collected for this blood culture was below the optimum (10 mL per bottle or 20 mL total). Use of lower volumes may adversely affect recovery and/or detection times of some organisms.BLOOD [id number] 08:49:46 Test Item Value Reference Range Interpretation Comments CULTURE A From Anaerobic Bottle (BEAKER) (test Only Same org anism has code = 1095) been isolated f [...] recovery and/or detection times of some organisms.POCT-GLUCOSE [id number] 08:35:48 Test Item Value Reference Range Interpretation Comments POC-GLUCOSE METER 218 mg/dL 70-110 H : TESTED A T [facility] 6720 (BEAKER) (test code = [place] [facility], 1538) [address]: Plant Accountant/Techni salma ID = [id number] for Si ms (contract), Bill schaefera (CELLAVISION MANUAL DIFF)2021-06-21 07:43:33 Test Item Value [...] CONCENTRATION Adequate (CELLAVISION)(BEAKER) (test code = 3438) Plant Accountant ID - emmanuel Alonso comments: Slide comments:CBC W/PLT COUNT & AUTO [id number] 07:43:32 Test Item Value Reference Range Interpretation [...] (BEAKER) (test code = 413) BASIC METABOLIC [id number] 06:56:26 Test Item Value Reference Range Interpretation [...] S NOT APPLICABLE FOR DIALYSIS PATIEN TS. Plant Accountant ID - JAKE EPATIC FUNCTION [id number] 06:37:52 Test Item Value Reference Range Interpretation [...] (test code = 31 U/L 6-55 347) Plant Accountant ID - JAKE MLACTATE DEHYDROGENASE (LDH)2021-06-21 06:37:52 Test Item Value Reference Range Interpretation Comments LACTATE DEHYDROGENASE (BEAKER) (test 402 U/L 125-220 H code = 635) Plant Accountant ID - JAKE [id number] 06:37:51 Test Item Value Reference Range Interpretation Comments PHOSPHORUS (BEAKER) (test code = 2.5 mg/dL 2.3-4.7 604) Plant Accountant ID - JAKE [id number] 06:37:50 Test Item Value Reference Range Interpretation Comments MAGNESIUM (BEAKER) (test code = 2.1 mg/dL 1.6-2.6 627) Plant Accountant ID - JAKE MPOCT-GLUCOSE [id number] 06:29:12 Test Item Value Reference Range Interpretation Comments POC-GLUCOSE METER 179 mg/dL 70-110 H : TESTED A T [facility] 6720 (BEAKER) (test code = [facility] [employer] [facility], 1538) [address]: Plant Accountant/Techni salma ID = [id number] for GENE NOONAN [id number] 06:01:57 Test Item Value Reference Range Interpretation Comments PARTIAL THROMBOPLASTIN TIME 55.5 seconds 22.5-36.0 H (BEAKER) (test code = 760) POCT-GLUCOSE [id number] 05:55:33 Test Item Value Reference Range Interpretation Comments POC-GLUCOSE METER 142 mg/dL 70-110 H : TESTED A T [facility] 6720 (BEAKER) (test code = [facility] [employer] [facility], 1538) 421[address]: Plant Accountant/Techni salma ID = [id number] for GENE NOONAN BLOOD GAS, [id number] 05:48:07 Test Item Value Reference Range Interpretation [...] (BEAKER) (test code = 1819) 21.0 POCT-GLUCOSE [id number] 04:55:01 Test Item Value Reference Range Interpretation Comments POC-GLUCOSE METER 150 mg/dL 70-110 H : TESTED A T [facility] 6720 (BEAKER) (test code = [facility], 1538) 49941: Plant Accountant/Techni salma ID = [id number] for TH OMAS, GENE POCT-GLUCOSE [id number] 03:37:14 Test Item Value Reference Range Interpretation Comments POC-GLUCOSE METER 178 mg/dL 70-110 H : TESTED A T [facility] 6720 (BEAKER) (test code = [facility], 1538) 13754: Plant Accountant/Techni salma ID = [id number] for TH OMAS, GENE POCT-GLUCOSE [id number] 02:13:18 Test Item Value Reference Range Interpretation Comments POC-GLUCOSE METER 203 mg/dL 70-110 H : TESTED A T [facility] 6720 (BEAKER) (test code = [facility], 1538) 30[address]: Plant Accountant/Techni salma ID = [id number] for Jair sheth (contract), [facility] POCT-GLUCOSE [id number] 01:13:25 Test Item Value Reference Range Interpretation Comments POC-GLUCOSE METER 174 mg/dL 70-110 H : TESTED A T [facility] 6720 (BEAKER) (test code = [facility], 1538) 56572: Plant Accountant/Techni salma ID = [id number] for TH OMAS, GENE BASIC METABOLIC [id number] 23:56:35 Test Item Value Reference Range Interpretation [...] S NOT APPLICABLE FOR DIALYSIS PATIEN TS. Plant Accountant ID - BSPOCT-GLUCOSE [id number] 23:28:16 Test Item Value Reference Range Interpretation Comments POC-GLUCOSE METER 153 mg/dL 70-110 H : TESTED A T [facility] 6720 (BEAKER) (test code = [place], 1538) 79[address]: Plant Accountant/Techni salma ID = [id number] for Jair sheth (contract), [facility] [id number] 23:13:29 Test Item Value Reference Range Interpretation Comments PARTIAL THROMBOPLASTIN TIME 47.8 seconds 22.5-36.0 H (BEAKER) (test code = 760) BLOOD GAS, [id number] 22:56:28 Test Item Value Reference Range Interpretation [...] (test code = 1819) 21.0 HEMOGLOBIN AND [id number] 22:55:44 Test Item Value Reference Range Interpretation Comments HEMOGLOBIN (BEAKER) (test code = 9.7 GM/DL 13.7-17.5 L 410) HEMATOCRIT (BEAKER) (test code = 30.6 % 40.1-51.0 L 411) Plant Accountant ID - 6000POCT-GLUCOSE [id number] 22:36:17 Test Item Value Reference Range Interpretation Comments POC-GLUCOSE METER 164 mg/dL 70-110 H : TESTED A T [facility] 6720 (BEAKER) (test code = [facility], 153) [id number]: Plant Accountant/Techni salma ID = [id number] for Jair sheth (contract), Suzanne ia POCT-GLUCOSE [id number] 21:12:44 Test Item Value Reference Range Interpretation Comments POC-GLUCOSE METER 180 mg/dL 70-110 H : TESTED A T [facility] 6720 (BEAKER) (test code = [facility], 1538) [id number]: Plant Accountant/Techni salma ID = [id number] for GENE NOONAN POCT-GLUCOSE [id number] 21:00:37 Test Item Value Reference Range Interpretation Comments POC-GLUCOSE METER 161 mg/dL 70-110 H : TESTED A T [facility] 6720 (BEAKER) (test code = [facility], 153) [id number]: Plant Accountant/Techni salma ID = [id number] for GENE NOONAN [id number] 18:25:57 Test Item Value Reference Range Interpretation Comments MAGNESIUM (BEAKER) (test code = 2.1 mg/dL 1.6-2.6 627) Plant Accountant ID - ADMINPOCT-GLUCOSE [id number] 18:23:31 Test Item Value Reference Range Interpretation Comments POC-GLUCOSE METER 190 mg/dL 70-110 H : TESTED A T [facility] 6720 (BEAKER) (test code = [facility], 153) 83923: Plant Accountant/Techni salma ID = [id number] for Sa ntiago (contract), Cry stal BLOOD GAS, [id number] 18:12:27 Test Item Value Reference Range Interpretation [...] (BEAKER) (test code = 1819) 21.0 POCT-GLUCOSE [id number] 18:10:29 Test Item Value Reference Range Interpretation Comments POC-GLUCOSE METER 141 mg/dL 70-110 H : TESTED A T [facility] 6720 (BEAKER) (test code = [place], 1538) 50422: Plant Accountant/Techni salma ID = [id number] for Sa petit (contract), [facility] Er stal BASIC METABOLIC [id number] 17:25:53 Test Item Value Reference Range Interpretation [...] S NOT APPLICABLE FOR DIALYSIS PATIEN TS. Plant Accountant ID - ADMINPOCT-GLUCOSE [id number] 15:52:31 Test Item Value Reference Range Interpretation Comments POC-GLUCOSE METER 155 mg/dL 70-110 H : TESTED A T [facility] 6720 (BEAKER) (test code = [place], 1538) 50003: Plant Accountant/Techni salma ID = [id number] for Sa ntiago (contract), Cry stal RAD, CHEST, 1 VIEW, NON [id number] 15:39:00Reason for exam:- >pneumoniaShould this be performed at the bedside?->Yes [facility] 1950 Sex: [...] Date/Time: 06/20/2021 15:39:31 URINALYSIS W/ REFLEX URINE [id number] 14:34:22 Test Item Value Reference Range Interpretation [...] = 1521) SOURCE(BEAKER) (test code = 2795) Plant Accountant ID - [auto]Plant Accountant ID - techPOCT-GLUCOSE [id number] 13:31:42 Test Item Value Reference Range Interpretation Comments POC-GLUCOSE METER 115 mg/dL 70-110 H : TESTED A T [facility] 6720 (BEAKER) (test code = [facility], 1538) 15747: Plant Accountant/Techni salma ID = [id number] for Sa ntiago (contract), Cry stal High Sensitivity Troponin I ([facility]/[place] Only)2021-06-20 12:27:26 Test Item Value Reference Range Interpretation Comments Troponin I HS (test 153 pg/ml See_Comment H [Automa oziel code = 54976-4) message] The system which generated this result transmitted reference range : <=35. The reference range was not used to interpret this result as normal/abnormal . BANDAR (test code = Plant Accountant ID - BANDAR) JULIETTE LThe TESTER/LIFT TRUCKER STAT High Sensitivity Troponin-I results should be used in conjunction with other diagnostic information such as ECG, clinical observations and information, and patient symptoms to aid in the diagnosis of OR. Lab Interpretation Abnormal (test code = 64219-7) [facility] TROPONIN [id number] 12:27:26 Test Item Value Reference Range Interpretation Comments HIGH SENSITIVITY 153 pg/ml See_Comment H [Automated message] TROPONIN I (test code The sy stem which = [id number]) generated this result transmitted ref erence range: <=35. Th e reference range was not used to int erpret this result as normal/abnormal . Plant Accountant ID - PIAYA LThe TESTER/LIFT TRUCKER STAT High Sensitivity Troponin-I results should be used in conjunction with other diagnostic information such as ECG, clinical observations and information, and patient symptoms to aid in the diagnosis of OR.BASIC METABOLIC [id number] 12:27:25 Test Item Value Reference Range Interpretation [...] S NOT APPLICABLE FOR DIALYSIS PATIEN TS. Plant Accountant ID - PIAYA LCBC W/PLT COUNT & AUTO [id number] 12:03:35 Test Item Value Reference Range Interpretation [...] PERCENT (BEAKER) (test code = 2801) POCT-GLUCOSE [id number] 11:29:57 Test Item Value Reference Range Interpretation Comments POC-GLUCOSE METER 159 mg/dL 70-110 H : TESTED A T [facility] 6720 (BEAKER) (test code = [place], 1538) 86721: Plant Accountant/Techni salma ID = [id number] for Sa ntiago (contract), Cry stal POCT-GLUCOSE [id number] 09:19:11 Test Item Value Reference Range Interpretation Comments POC-GLUCOSE METER 144 mg/dL 70-110 H : TESTED A T [facility] 6720 (BEAKER) (test code = [facility], 1538) 53558: Plant Accountant/Techni salma ID = [id number] for Sa ntiago (contract), Cry stal POCT-GLUCOSE [id number] 09:16:19 Test Item Value Reference Range Interpretation Comments POC-GLUCOSE METER 86 mg/dL 70-110 : TESTED A T [facility] 6720 (BEAKER) (test code = [facility], 1538) 00850: Plant Accountant/Techni salma ID = [id number] for Darrell delacruz (contract), Cry stal POCT-GLUCOSE [id number] 06:32:15 Test Item Value Reference Range Interpretation Comments POC-GLUCOSE METER 116 mg/dL 70-110 H : TESTED A T [facility] 6720 (BEAKER) (test code = [facility], 1538) 48435: Plant Accountant/Techni salma ID = [id number] for Trini barclay (contract), Reina poe BASIC METABOLIC [id number] 06:29:31 Test Item Value Reference Range Interpretation [...] S NOT APPLICABLE FOR DIALYSIS PATIEN TS. Plant Accountant ID - EMILIO [id number] 05:58:58 Test Item Value Reference Range Interpretation Comments PHOSPHORUS (BEAKER) (test code = 2.0 mg/dL 2.3-4.7 L 604) Plant Accountant ID - EMILIO WHEPATIC FUNCTION [id number] 05:58:58 Test Item Value Reference Range Interpretation [...] (test code = 26 U/L 6-55 347) Plant Accountant ID - EMILIO [id number] 05:58:57 Test Item Value Reference Range Interpretation Comments MAGNESIUM (BEAKER) (test code = 2.2 mg/dL 1.6-2.6 627) Plant Accountant ID - EMILIO [id number] 05:30:09 Test Item Value Reference Range Interpretation Comments PARTIAL THROMBOPLASTIN TIME 78.4 seconds 22.5-36.0 H (BEAKER) (test code = 760) POCT-GLUCOSE [id number] 05:26:11 Test Item Value Reference Range Interpretation Comments POC-GLUCOSE METER 109 mg/dL 70-110 : TESTED A T [facility] 6720 (BEAKER) (test code = [place], 1538) 29770: Plant Accountant/Techni salma ID = [id number] for Trini barclay (contract)Reina CBC W/PLT COUNT & AUTO [id number] 05:18:21 Test Item Value Reference Range Interpretation [...] (BEAKER) (test code = 2801) BLOOD GAS, [id number] 04:56:50 Test Item Value Reference Range Interpretation [...] (BEAKER) (test code = 1819) 21.0 POCT-GLUCOSE [id number] 04:26:20 Test Item Value Reference Range Interpretation Comments POC-GLUCOSE METER 142 mg/dL 70-110 H : TESTED A T [facility] 6720 (BEAKER) (test code = [facility], [facility]8) 23870: Plant Accountant/Techni salma ID = [id number] for Sh epard (contract), Reina lui POCT-GLUCOSE [id number] 03:34:54 Test Item Value Reference Range Interpretation Comments POC-GLUCOSE METER 162 mg/dL 70-110 H : TESTED A T [facility] 6720 (BEAKER) (test code = [facility], 1538) 15196: Plant Accountant/Techni salma ID = [id number] for Sh epard (contract), Reina lui POCT-GLUCOSE [id number] 02:26:21 Test Item Value Reference Range Interpretation Comments POC-GLUCOSE METER 191 mg/dL 70-110 H : TESTED A T [facility] 6720 (BEAKER) (test code = [facility], 1538) 34857: Plant Accountant/Techni salma ID = [id number] for Sh epard (contract), Reina lui POCT-GLUCOSE [id number] 00:29:38 Test Item Value Reference Range Interpretation Comments POC-GLUCOSE METER 191 mg/dL 70-110 H : TESTED A T [facility] 6720 (BEAKER) (test code = [facility], 1538) 67747: Plant Accountant/Techni salma ID = [id number] for Trini barclay (contract), Reina poe POCT-GLUCOSE [id number] 23:37:21 Test Item Value Reference Range Interpretation Comments POC-GLUCOSE METER 171 mg/dL 70-110 H : TESTED A T [facility] 6720 (BEAKER) (test code = [facility], 1538) 12881: Plant Accountant/Techni salma ID = [id number] for Trini barclay (contract), Reina poe POCT-GLUCOSE [id number] 22:29:59 Test Item Value Reference Range Interpretation Comments POC-GLUCOSE METER 157 mg/dL 70-110 H : TESTED A T [facility] 6720 (BEAKER) (test code = [facility], 1538) 17923: Plant Accountant/Techni salma ID = [id number] for Trini barclay (contract), Reina poe BASIC METABOLIC [id number] 22:24:14 Test Item Value Reference Range Interpretation [...] S NOT APPLICABLE FOR DIALYSIS PATIEN TS. Plant Accountant ID - [id number] 22:22:57 Test Item Value Reference Range Interpretation Comments PARTIAL THROMBOPLASTIN TIME 77.8 seconds 22.5-36.0 H (BEAKER) (test code = 760) POCT-GLUCOSE [id number] 21:42:01 Test Item Value Reference Range Interpretation Comments POC-GLUCOSE METER 166 mg/dL 70-110 H : TESTED A T [facility] 6720 (BEAKER) (test code = [facility], 1538) 12361: Plant Accountant/Techni salma ID = [id number] for MARTINEZ BRADLEY POCT-GLUCOSE [id number] 20:50:19 Test Item Value Reference Range Interpretation Comments POC-GLUCOSE METER 140 mg/dL 70-110 H : TESTED A T [facility] 6720 (BEAKER) (test code = [facility], 1538) 16934: Plant Accountant/Techni salma ID = [id number] for MARTINZE BRADLEY BASIC METABOLIC [id number] 18:37:00 Test Item Value Reference Range Interpretation [...] S NOT APPLICABLE FOR DIALYSIS PATIEN TS. Plant Accountant ID - DBPOCT-GLUCOSE [id number] 18:08:34 Test Item Value Reference Range Interpretation Comments POC-GLUCOSE METER 167 mg/dL 70-110 H : TESTED A T [facility] 6720 (BEAKER) (test code = [facility], 1538) 76820: Plant Accountant/Techni salma ID = [id number] for Sa kirilliago (contract), Cry stal POCT-GLUCOSE [id number] 17:41:22 Test Item Value Reference Range Interpretation Comments POC-GLUCOSE METER 234 mg/dL 70-110 H : TESTED A T [facility] 6720 (BEAKER) (test code = [facility], 1538) 59084: Plant Accountant/Techni salma ID = [id number] for Sa ntiago (contract), Cry stal POCT-GLUCOSE [id number] 15:31:33 Test Item Value Reference Range Interpretation Comments POC-GLUCOSE METER 202 mg/dL 70-110 H : TESTED A T [facility] 6720 (BEAKER) (test code = [facility], 1538) 74611: Plant Accountant/Techni salma ID = [id number] for Sa ntiago (contract), Cry stal [id number] 14:52:20 Test Item Value Reference Range Interpretation Comments PARTIAL THROMBOPLASTIN TIME 64.7 seconds 22.5-36.0 H (BEAKER) (test code = 760) POCT-GLUCOSE [id number] 13:11:34 Test Item Value Reference Range Interpretation Comments POC-GLUCOSE METER 116 mg/dL 70-110 H : TESTED A T [facility] 6720 (BEAKER) (test code = [facility], 1538) 53549: Plant Accountant/Techni salma ID = [id number] for Sa ntiago (contract), Cry stal POCT-GLUCOSE [id number] 13:08:53 Test Item Value Reference Range Interpretation Comments POC-GLUCOSE METER 80 mg/dL 70-110 : TESTED A T [facility] 6720 (BEAKER) (test code = [facility], 1538) 49231: Plant Accountant/Techni salma ID = [id number] for Darrell iago (contract), Cry stal BASIC METABOLIC [id number] 12:55:40 Test Item Value Reference Range Interpretation [...] S NOT APPLICABLE FOR DIALYSIS PATIEN TS. Plant Accountant ID - PIRENÉ [id number] 12:41:30 Test Item Value Reference Range Interpretation Comments MAGNESIUM (BEAKER) (test code = 2.1 mg/dL 1.6-2.6 627) Plant Accountant ID - CHRISRENÉ LVANCOMYCIN LEVEL, [id number] 12:40:03 Test Item Value Reference Range Interpretation Comments VANCOMYCIN TROUGH (BEAKER) (test 21.8 ug/mL 10.0-20.0 H code = 522) Plant Accountant ID - CHRISRENÉ [id number] 12:38:00 Test Item Value Reference Range Interpretation Comments PARTIAL THROMBOPLASTIN TIME 111.6 seconds 22.5-36.0 H (BEAKER) (test code = 760) RAD, CHEST, 1 VIEW, NON [id number] 10:23:00Reason for exam:->pneumonia evaluationShould this be performed at the bedside?->Yes [facility] : 1950 Sex: MFINAL REPORT TECHNIQUE: Frontal view of the chest. INDICATION: pneumonia evaluation COMPARISON:06/17/2021 DISCUSSION:Limited evaluation due to portable technique. Lines and hardware:Stable midline sternotomy changes. Overlying EKG leads are noted.Heart and mediastinum: Stable.Lungsand pleura: Ill-defined bilateral interstitial and patchy airspace opacities are worse in the right and improved on the left. No large effusion or pneumothorax.Soft tissues and bones: No acute abnormality. IMPRESSION:Worsening right and improved left bilateral airspace disease. Signed: Hudson Meza MDReport Verified Date/Time: 06/19/2021 10:23:27 Reading Location: [facility] P048 Angio Body Reading Room POCT-GLUCOSE METER 2021-06-19 10:03:58 Test Item Value Reference Range Interpretation Comments POC-GLUCOSE METER 104 mg/dL 70-110 : TESTED A T [facility] 6720 (BEAKER) (test code = [facility], 1538) 86359: Plant Accountant/Techni salma ID = [id number] for Sa ntiago (contract), [facility] Er stal BLOOD [id number] 09:53:46 Test Item Value Reference Interpretation Comments Range CULTURE (BEAKER) METHICILLIN A From Aerobi c (test code [...] normal/abnormal . GRAM STAIN RESULT From aerobic (BEAKER) (test code = bottle only: gram 1123) positive cocci in clusters The specimen volume collected for this blood culture was below the optimum (10 mL per bottle or 20 mL total). Use of lower volumes may adversely affect recovery and/or detection times of some organisms.POCT-GLUCOSE [id number] 08:39:00 Test Item Value Reference Range Interpretation Comments POC-GLUCOSE METER 113 mg/dL 70-110 H : TESTED A T [facility] 6720 (BEAKER) (test code = [facility], 1538) 99787: Plant Accountant/Techni salma ID = [id number] for Sa ntiago (contract), Cry stal POCT-GLUCOSE [id number] 07:00:47 Test Item Value Reference Range Interpretation Comments POC-GLUCOSE METER 143 mg/dL 70-110 H : TESTED A T [facility] 6720 (BEAKER) (test code = [facility], 1538) 86561: Plant Accountant/Techni salma ID = [id number] for Bailey melendez (contract), Markel lla POCT-GLUCOSE [id number] 06:28:44 Test Item Value Reference Range Interpretation Comments POC-GLUCOSE METER 162 mg/dL 70-110 H : TESTED A T [facility] 6720 (BEAKER) (test code = [facility], 1538) 39646: Plant Accountant/Techni salma ID = [id number] for Bailey melendez (contract), Markel lla [id number] 06:06:15 Test Item Value Reference Range Interpretation Comments PARTIAL THROMBOPLASTIN TIME 97.9 seconds 22.5-36.0 H (BEAKER) (test code = 760) HEPATIC FUNCTION [id number] 05:48:59 Test Item Value Reference Range Interpretation [...] (test code = 23 U/L 6-55 347) Plant Accountant ID Cory SEGOVIA [id number] 05:48:58 Test Item Value Reference Range Interpretation Comments MAGNESIUM (BEAKER) (test code = 2.1 mg/dL 1.6-2.6 627) Plant Accountant ID Cory SEGOVIA [id number] 05:48:58 Test Item Value Reference Range Interpretation Comments PHOSPHORUS (BEAKER) (test code = 3.2 mg/dL 2.3-4.7 604) Plant Accountant ID Cory SEGOVIA LBASIC METABOLIC [id number] 05:48:57 Test Item Value Reference Range Interpretation [...] S NOT APPLICABLE FOR DIALYSIS PATIEN TS. Plant Accountant ID Cory REYNOLDSLOOD GAS, [id number] 05:48:53 Test Item Value Reference Range Interpretation [...] 1819) 21.0 CBC W/PLT COUNT & AUTO [id number] 05:46:25 Test Item Value Reference Range Interpretation [...] PERCENT (BEAKER) (test code = 2801) POCT-GLUCOSE [id number] 05:06:32 Test Item Value Reference Range Interpretation Comments POC-GLUCOSE METER 237 mg/dL 70-110 H : TESTED A T [facility] 6720 (BEAKER) (test code = [facility], 1538) 95448: Plant Accountant/Techni salma ID = [id number] for Ro ianh (contract), Markel lla POCT-GLUCOSE [id number] 04:10:59 Test Item Value Reference Range Interpretation Comments POC-GLUCOSE METER 234 mg/dL 70-110 H : TESTED A T [facility] 6720 (BEAKER) (test code = [facility], 1538) 54527: Plant Accountant/Techni salma ID = [id number] for Ro tich (contract), Markel lla POCT-GLUCOSE [id number] 03:21:53 Test Item Value Reference Range Interpretation Comments POC-GLUCOSE METER 200 mg/dL 70-110 H : TESTED A T [facility] 6720 (BEAKER) (test code = [facility], 1538) 76007: Plant Accountant/Techni salma ID = [id number] for Ro tich (contract), Markel lla POCT-GLUCOSE [id number] 02:22:45 Test Item Value Reference Range Interpretation Comments POC-GLUCOSE METER 237 mg/dL 70-110 H : TESTED A T [facility] 6720 (BEAKER) (test code = [facility], 1538) 47509: Plant Accountant/Techni salma ID = [id number] for Ro tich (contract), Markel lla POCT-GLUCOSE [id number] 00:48:29 Test Item Value Reference Range Interpretation Comments POC-GLUCOSE METER 207 mg/dL 70-110 H : TESTED A T [facility] 6720 (BEAKER) (test code = [facility], 1538) 78635: Plant Accountant/Techni salma ID = [id number] for Bailey melendez (contract), Markel lla BASIC METABOLIC [id number] 23:59:41 Test Item Value Reference Range Interpretation [...] S NOT APPLICABLE FOR DIALYSIS PATIEN TS. Plant Accountant ID - DBPOCT-GLUCOSE [id number] 23:43:41 Test Item Value Reference Range Interpretation Comments POC-GLUCOSE METER 180 mg/dL 70-110 H : TESTED A T [facility] 6720 (BEAKER) (test code = [facility], 1538) 54629: Plant Accountant/Techni salma ID = [id number] for Bailey melendez (contract), Markel lla POCT-GLUCOSE [id number] 22:26:38 Test Item Value Reference Range Interpretation Comments POC-GLUCOSE METER 219 mg/dL 70-110 H : TESTED A T [facility] 6720 (BEAKER) (test code = [facility], 1538) 26662: Plant Accountant/Techni salma ID = [id number] for Bailey melendez (contract), Markel lla POCT-GLUCOSE [id number] 21:24:32 Test Item Value Reference Range Interpretation Comments POC-GLUCOSE METER 253 mg/dL 70-110 H : TESTED A T [facility] 6720 (BEAKER) (test code = [facility], 1538) 67209: Plant Accountant/Techni salma ID = [id number] for Bailey melendez (contract), Markel lla POCT-GLUCOSE [id number] 20:26:54 Test Item Value Reference Range Interpretation Comments POC-GLUCOSE METER 282 mg/dL 70-110 H : TESTED A T [facility] 6720 (BEAKER) (test code = [facility], 1538) 10783: Plant Accountant/Techni salma ID = [id number] for Bailey melendez (contract), Markel lla [id number] 18:36:20 Test Item Value Reference Range Interpretation Comments GLUCOSE RANDOM (BEAKER) (test code 427 mg/dL 70-105 HH = 652) Plant Accountant ID - JULIETTE LBASIC METABOLIC [id number] 18:35:59 Test Item Value Reference Range Interpretation [...] S NOT APPLICABLE FOR DIALYSIS PATIEN TS. Plant Accountant ID - PIAYA LHEPATIC FUNCTION [id number] 18:16:23 Test Item Value Reference Range Interpretation [...] Specimen slightly (test code = 347) hemolyzed Plant Accountant BOOGIE GARCIA2022-02-13 18:04:40 Test Item Value Reference Range Interpretation [...] 0-0 (BEAKER) (test code = 413) POCT-GLUCOSE [id number] 16:31:09 Test Item Value Reference Range Interpretation Comments POC-GLUCOSE METER 338 mg/dL 70-110 H : TESTED A T [facility] 6720 (BEAKER) (test code = [facility], 1538) 44834: Plant Accountant/Techni salma ID = [id number] for Mallory hn (contract), Jea nne POCT-GLUCOSE [id number] 12:15:57 Test Item Value Reference Range Interpretation Comments POC-GLUCOSE METER 329 mg/dL 70-110 H : TESTED A T [facility] 6720 (BEAKER) (test code = [facility], 1538) 45927: Plant Accountant/Techni salma ID = [id number] for Mallory hn (contract), Jea nne POCT-GLUCOSE [id number] 07:09:34 Test Item Value Reference Range Interpretation Comments POC-GLUCOSE METER 296 mg/dL 70-110 H : TESTED A T [facility] 6720 (BEAKER) (test code = [facility], 1538) 00761: Plant Accountant/Techni salma ID = [id number] for SAROJ HENDRICKS BLOOD GAS, [id number] 07:01:05 Test Item Value Reference Range Interpretation [...] (test code = 1819) 32.0 BASIC METABOLIC [id number] 04:43:52 Test Item Value Reference Range Interpretation [...] S NOT APPLICABLE FOR DIALYSIS PATIEN TS. Plant Accountant ID - [id number] 04:42:35 Test Item Value Reference Range Interpretation Comments MAGNESIUM (BEAKER) (test code = 2.4 mg/dL 1.6-2.6 627) Plant Accountant ID - [id number] 04:42:35 Test Item Value Reference Range Interpretation Comments PHOSPHORUS (BEAKER) (test code = 4.4 mg/dL 2.3-4.7 604) Plant Accountant ID - DBCBC W/PLT COUNT & AUTO [id number] 04:02:19 Test Item Value Reference Range Interpretation [...] PERCENT (BEAKER) (test code = 2801) CT, [id number] 02:23:00Unlisted Reason for Exam - Click Yes and Enter Reason Below->YesUnlisted Reason for Exam->intraabdominal source of persistent mrsa bacteremiaIs this for enterography?->NoWill this procedure require oral contrast?->No [facility] 1950 [...] mass protocol MRI or CT. Signed: Joe Lópezthe institute of living Verified Date/Time: 06/18/2021 02:23:26 CT, CHEST, WITHOUT [id number] 02:23:00Unlisted Reason for Exam - Click Yes and Enter Reason Below->YesUnlisted Reason for Exam->pneumonia, pulm edema, septic emboli, lung abscess, empyema [facility] : 1950 [...] López MDReport Verified Date/Time: 06/18/2021 02:23:26 CT, BRAIN, WITHOUT [id number] 02:15:00Unlisted Reason for Exam - Click Yes and Enter Reason Below->YesUnlisted Reason for Exam->stroke, septic emboli [facility] : 1950 [...] MRI for further evaluation. Signed: Joe López MDReport Verified Date/Time: 2021 02:15:33 POCT-GLUCOSE [id number] 23:09:56 Test Item Value Reference Range Interpretation Comments POC-GLUCOSE METER 262 mg/dL 70-110 H : TESTED A T [facility] 6720 (FanBread) (test code = [facility], 1538) 93750: Plant Accountant/Techni salma ID = [id number] for SAROJ HENDRICKS POCT-GLUCOSE [id number] 22:27:08 Test Item Value Reference Range Interpretation Comments POC-GLUCOSE METER 218 mg/dL 70-110 H : TESTED A T [facility] 6720 (FanBread) (test code = [employer] [place], 1538) 04417: Plant Accountant/Techni salma ID = [id number] for Cinda nichole (contract)Trang RAD, ABDOMEN/KUB, 1 VIEW [id number] 20:14:00Reason for exam:->Feeding tube placementEL [facility] : 1950 Sex: MFINAL REPORT EXAM/TECHNIQUE: RAD, [...] H 2276-4) BANDAR (test code = BANDAR) Plant Accountant ID - DB Lab Interpretation (test Abnormal code = 69629-6) [facility]ERR[facility]IN20[facility] 18:52:48 Test Item Value Reference Range Interpretation Comments FERRITIN (BEAKER) (test code = 469.45 ng/mL 5.00-275.00 H 361) Plant Accountant ID - DBHIGH SENSITIVITY TROPONIN [id number] 18:43:48 Test Item Value Reference Range Interpretation Comments HIGH SENSITIVITY 522 pg/ml See_Comment HH [Automated message] TROPONIN I (test code The sy stem which = [id number]) generated this result transmitted ref erence range: <=35. Th e reference range was not used to int erpret this result as normal/abnormal . Plant Accountant ID - DBThe TESTER/LIFT TRUCKER STAT High Sensitivity Troponin-I results should be used in conjunctionwith other diagnostic information such as ECG, clinical observations and information, and patient symptoms to aid in the diagnosis of OR.B-type Natriuretic Factor (BNP)2021-06-17 18:38:24 Test Item Value Reference Range Interpretation Comments BNP (test code = 97808-1) 849 pg/mL 0-100 H BANDAR (test code = BANDAR) Plant Accountant ID - DB Lab Interpretation (test Abnormal code = 58646-2) [facility] NATRIURETIC FACTOR (BNP)2021-06-17 18:38:24 Test Item Value Reference Range Interpretation Comments B-TYPE NATRIURETIC PEPTIDE (BEAKER) 849 pg/mL 0-100 H (test code = 700) Plant Accountant ID - DBIron, TIBC, % sat. (without ferritin)2021-06-17 18:31:42 Test Item Value Reference Range Interpretation Comments Iron (test code = 2498-4) 48.0 ug/dL 40.0-160.0 TIBC (test code = 2500-7) 154 ug/dL 250-450 L Iron % Saturation (test code 31 % 20-55 = 2502-3) BANDAR (test code = BANDAR) Plant Accountant ID - DB Lab Interpretation (test Abnormal code = 84461-0) [facility]IRON, TIBC, % SAT. (WITHOUT FERRITIN)2021-06-17 18:31:42 Test Item Value Reference Range Interpretation Comments IRON (BEAKER) (test code = 547) 48.0 ug/dL 40.0-160.0 TOTAL IRON BINDING CAPACITY 154 ug/dL 250-450 L (BEAKER) (test code = 769) IRON % SATURATION (2) (BEAKER) 31 % 20-55 (test code = 2590) Plant Accountant ID - DBLACTATE DEHYDROGENASE (LDH)2021-06-17 18:29:42 Test Item Value Reference Range Interpretation Comments LACTATE DEHYDROGENASE (BEAKER) (test 409 U/L 125-220 H code = 635) Plant Accountant ID - DBBLOOD GAS, [id number] 18:14:17 Test Item Value Reference Range Interpretation [...] FIO2 (BEAKER) (test code = 1819) 21.0 [id number] 18:04:00 Test Item Value Reference Range Interpretation Comments PARTIAL THROMBOPLASTIN TIME 26.3 seconds 22.5-36.0 (BEAKER) (test code = 760) PROTHROMBIN TIME/[id number] 18:03:21 Test Item Value Reference Range Interpretation Comments PROTIME (BEAKER) 15.5 seconds 11.9-14.2 H (test code = 759) INR (BEAKER) (test 1.25 See_Comment [Automat ed message] code = 370) The system [employer] generated this result transmitted ref erence range: [...] 0-0 (BEAKER) (test code = 413) POCT-GLUCOSE [id number] 17:50:54 Test Item Value Reference Range Interpretation Comments POC-GLUCOSE METER 150 mg/dL 70-110 H : TESTED A T [facility] 6720 (BEAKER) (test code = [facility] [place], 1538) [address]: Plant Accountant/Techni salma ID = [id number] for Poonam Lawson BASIC METABOLIC [id number] 17:01:36 Test Item Value Reference Range Interpretation [...] S NOT APPLICABLE FOR DIALYSIS PATIEN TS. Plant Accountant ID - [id number] 16:58:48 Test Item Value Reference Range Interpretation Comments PHOSPHORUS (BEAKER) 3.7 mg/dL 2.3-4.7 Specimen slightly (test code = 604) hemolyzed Plant Accountant ID - [id number] 16:58:47 Test Item Value Reference Range Interpretation Comments MAGNESIUM (BEAKER) 2.2 mg/dL 1.6-2.6 Specimen slightly (test code = 627) hemolyzed Plant Accountant ID - DBPOCT-GLUCOSE [id number] 16:08:55 Test Item Value Reference Range Interpretation Comments POC-GLUCOSE METER 116 mg/dL 70-110 H : TESTED A T [facility] 6720 (BEAKER) (test code = [facility] [place], 1538) [address]: Plant Accountant/Techni salma ID = [id number] for Mallory hn (contract), Jea nne RAD, CHEST, 1 VIEW, NON [id number] 13:49:00Reason for exam:- >tachypneaShould this be performed at the bedside?->Yes [facility] : 1950 [...] Lopez Verified Date/Time: 06/17/2021 13:49:59 Reading Location: [address] Consult Reading Room POCT- GLUCOSE [id number] 11:29:30 Test Item Value Reference Range Interpretation Comments POC-GLUCOSE METER 119 mg/dL 70-110 H : TESTED A T [facility] 6720 (BEAKER) (test code = [place], 1538) [address]: Plant Accountant/Techni salma ID = [id number] for Mohamud bowman (contract)Aurelio POCT-GLUCOSE [id number] 09:41:06 Test Item Value Reference Range Interpretation Comments POC-GLUCOSE METER 114 mg/dL 70-110 H : TESTED A T [facility] 6720 (BEAKER) (test code = [place], 1538) [address]: Plant Accountant/Techni salma ID = [id number] for Mallory hn (contract), Aurelio khanna POCT-GLUCOSE [id number] 08:56:08 Test Item Value Reference Range Interpretation Comments POC-GLUCOSE METER 70 mg/dL 70-110 : TESTED A T [facility] 6720 (BEAKER) (test code = [facility] [place], 1538) [address]: Plant Accountant/Techni salma ID = [id number] for Carrasquillo (contract), Aurelio khanna HEPATIC FUNCTION [id number] 04:51:36 Test Item Value Reference Range Interpretation [...] (test code = 26 U/L 6-55 347) Plant Accountant ID - JAKE MBLOOD GAS, [id number] 04:39:15 Test Item Value Reference Range Interpretation [...] (BEAKER) (test code = 1819) 21.0 POCT-GLUCOSE [id number] 04:32:46 Test Item Value Reference Range Interpretation Comments POC-GLUCOSE METER 137 mg/dL 70-110 H : Notified RN/MD: (BEAKER) (test code = TESTED AT [facility] 5370 5306) HAYDEE [facility], [address]: Plant Accountant/Techni salma ID = [id number] for Luis doan (contract), [place] nda BASIC METABOLIC [id number] 03:40:36 Test Item Value Reference Range Interpretation [...] S NOT APPLICABLE FOR DIALYSIS PATIEN TS. Plant Accountant ID - JAKE MBLOOD GAS, [id number] 03:02:54 Test Item Value Reference Range Interpretation [...] L (test code = 387) PATIENT TEMPERATURE ([facility]) 38.3 (test code = 1818) FIO2 ([facility]) (test code = 1819) 21.0 POCT-GLUCOSE [id number] 22:37:33 Test Item Value Reference Range Interpretation Comments POC-GLUCOSE METER 300 mg/dL 70-110 H : Notified RN/MD: ([facility]) (test code = TESTED AT [facility] 67 1538) [facility], [address]: Plant Accountant/Techni salma ID = [id number] for Luis doan (contract), [place] nda POCT-GLUCOSE [id number] 19:03:08 Test Item Value Reference Range Interpretation Comments POC-GLUCOSE METER 280 mg/dL 70-110 H : TESTED A T [facility] 6720 ([facility]) (test code = [facility], 1538) [address]: Plant Accountant/Techni salma ID = [id number] for Mohamud bowman (contract), Aurelio nne POCT-GLUCOSE [id number] 12:58:47 Test Item Value Reference Range Interpretation Comments POC-GLUCOSE METER 214 mg/dL 70-110 H : [facility]) (test code = [facility], 153) 135[address]: Plant Accountant/Techni salma ID = [id number] for Andrzej alvarez (contract), Dawson razo BLOOD [id number] 08:16:58 Test Item Value Reference Range Interpretation Comments CULTURE A From Aerobic An d ([facility]) (test Anaerobic Bot tles Same code = 1095) organism has be en isolated from cultures(s) of the same body site and collection date . Repeat identifi cation and susceptibil ity testing perform ed only after consultat ion with the [facility] microbiology laboratory.Refe r to previous cultur e ofMethicillin resistant Staphylococcus aureus GRAM STAIN From aerobic and RESULT ([facility]) anaerobic (test code = bottles: gram 1123) positive cocci in clusters The specimen volume collected for this blood culture was below the optimum (10 mL per bottle or 20 mL total). Use of lower volumes may adversely affect recovery and/or detection times of some organisms.POCT-GLUCOSE [id number] 08:10:41 Test Item Value Reference Range Interpretation Comments POC-GLUCOSE METER 166 mg/dL 70-110 H : TESTED A T [facility] 6720 (BEAKER) (test code = [facility] [place], 1538) [address]: Plant Accountant/Techni salma ID = [id number] for Osito jones (contract), Sam cruz POCT-GLUCOSE [id number] 04:34:58 Test Item Value Reference Range Interpretation Comments POC-GLUCOSE METER 208 mg/dL 70-110 H : TESTED A T [facility] 6720 (BEAKER) (test code = [place], 1538) [address]: Plant Accountant/Techni salma ID = [id number] for Mayra cortez (contract), Javan rNeca BLOOD GAS, [id number] 04:30:13 Test Item Value Reference Range Interpretation [...] 1819) 32.0 CBC W/PLT COUNT & AUTO [id number] 04:28:49 Test Item Value Reference Range Interpretation [...] (BEAKER) (test code = 2801) BASIC METABOLIC [id number] 01:15:47 Test Item Value Reference Range Interpretation [...] S NOT APPLICABLE FOR DIALYSIS PATIEN TS. Plant Accountant ID - DBPOCT-GLUCOSE [id number] 21:12:39 Test Item Value Reference Range Interpretation Comments POC-GLUCOSE METER 155 mg/dL 70-110 H : TESTED A T [facility] 6720 (BEAKER) (test code = [place], 1538) [address]: Plant Accountant/Techni salma ID = [id number] for diego (contract), [facility] BASIC METABOLIC [id number] 16:35:56 Test Item Value Reference Range Interpretation [...] 358) GLUCOSE RANDOM 238 mg/dL 70-105 H (BEAKER) (test code = 652) CALCIUM (BEAKER) 8.8 mg/dL 8.4-10.2 (test code = 697) EGFR (BEAKER) (test 28 mL/min/1.73 ESTIMA OZIEL GFR IS code = 1092) sq m NOT ACCURATE CREATININE CLEARANCE IN PREDICTING GLOMERULAR FILTRATION RATE . ESTIMATED GFR I S NOT APPLICABLE FOR DIALYSIS PATIEN TS. Plant Accountant ID - DBPOCT-GLUCOSE [id number] 16:16:11 Test Item Value Reference Range Interpretation Comments POC-GLUCOSE METER 217 mg/dL 70-110 H : TESTED A T [facility] 6720 (BEAKER) (test code = [facility], 1538) [address]: Plant Accountant/Techni salma ID = [id number] for Guevara hitchcock (contract), Enr ique VANCOMYCIN LEVEL, [id number] 13:36:37 Test Item Value Reference Range Interpretation Comments VANCOMYCIN TROUGH (AKER) (test 13.6 ug/mL 10.0-20.0 code = 522) Plant Accountant ID - JULIETTE LPOCT-GLUCOSE [id number] 12:13:34 Test Item Value Reference Range Interpretation Comments POC-GLUCOSE METER 306 mg/dL 70-110 H : TESTED A T [facility] 6720 (BEAKER) (test code = [facility], 1538) [address]: Plant Accountant/Techni salma ID = [id number] for Guevara hitchcock (contract), Enr ique POCT-GLUCOSE [id number] 10:19:44 Test Item Value Reference Range Interpretation Comments POC-GLUCOSE METER 334 mg/dL 70-110 H : TESTED A T [facility] 6720 (BEAKER) (test code = [facility], 1538) [address]: Plant Accountant/Techni salma ID = [id number] for Guevara hitchcock (contract), Enr ique SPUTUM CULTURE + GRAM [id number] 09:14:02 Test Item Value Reference Interpretation Comments Range CULTURE (AKER) METHICILLIN A 4+ Methicil antionette (test code [...] 0-5 epithelial (BEAKER) (test code = cells 351443) GRAM STAIN RESULT 3+ gram positive (BEAKER) (test code = cocci in pairs and 608351) clusters GRAM STAIN RESULT <1+ gram positive (BEAKER) (test code = rods 071852) GRAM STAIN RESULT <1+ gram positive (BEAKER) (test code = cocci in chains 565949) POCT-GLUCOSE [id number] 08:31:21 Test Item Value Reference Range Interpretation Comments POC-GLUCOSE METER 351 mg/dL 70-110 H : TESTED A T [facility] 6720 (BEAKER) (test code = [place], 1538) [address]: Plant Accountant/Techni salma ID = [id number] for Guevara hitchcock (contract), Enr ique BASIC METABOLIC [id number] 08:05:57 Test Item Value Reference Range Interpretation [...] S NOT APPLICABLE FOR DIALYSIS PATIEN TS. Plant Accountant ID - PIAYA LCBC W/PLT COUNT & AUTO [id number] 07:37:17 Test Item Value Reference Range Interpretation [...] (BEAKER) (test code = 2801) BLOOD GAS, [id number] 07:31:54 Test Item Value Reference Range Interpretation [...] (test code = 1819) 60.0 BASIC METABOLIC [id number] 23:20:11 Test Item Value Reference Range Interpretation [...] S NOT APPLICABLE FOR DIALYSIS PATIEN TS. Plant Accountant ID - CDPPOCT-GLUCOSE [id number] 21:43:21 Test Item Value Reference Range Interpretation Comments POC-GLUCOSE METER 190 mg/dL 70-110 H : TESTED A T [facility] 6720 (BEAKER) (test code = [facility] [place] [facility], 1538) [address]: Plant Accountant/Techni salma ID = [id number] for Mayra cortze (contract), Javan Johneca BASIC METABOLIC [id number] 17:05:08 Test Item Value Reference Range Interpretation [...] S NOT APPLICABLE FOR DIALYSIS PATIEN TS. Plant Accountant ID - BSPOCT-GLUCOSE [id number] 16:54:09 Test Item Value Reference Range Interpretation Comments POC-GLUCOSE METER 185 mg/dL 70-110 H : TESTED A T [facility] 6720 (BEHypemarks) (test code = [facility], 1538) [address]: Plant Accountant/Techni salma ID = [id number] for [employer](contract ), NativeAD POCT-GLUCOSE [id number] 13:00:37 Test Item Value Reference Range Interpretation Comments POC-GLUCOSE METER 305 mg/dL 70-110 H : TESTED A T [facility] 6720 (BEHypemarks) (test code = [facility], 1538) 412[address]: Plant Accountant/Techni salma ID = [id number] for [employer](contract ), Sindy BLOOD CULTURE IDENTIFICATION [id number] 09:42:13 Test Item Value Reference Interpretation Comments Range LISTERIA MONOCYTOGENES Not detected Not detected (test code = 20160206) STAPHYLOCOCCUS (test Detected Not detected A code = 7231398) STAPHYLOCOCCUS AUREUS Detected Not detected A Methic illin-resistant (test code = 7125726) S. aur eus (MRSA)First-antionette e therapy: Vancom ycinID CONSULTATION REQUIRED. Staphylococcus aureus DETECTED MecA DETECTEDReferen ce Range: Not Dete cted STREPTOCOCCUS (test Not detected Not detected code = 9721949) STREPTOCOCCUS Not detected Not detected AGALACTIAE (GROUP B) (test code = 4549200) STREPTOCOCCUS Not detected Not detected PNEUMONIAE (test code = 1848942) STREPTOCOCCUS PYOGENES Not detected Not detected (GROUP A) (test code = 2745002) ACINETOBACTER BAUMANNII Not detected Not detected (test code = 8618274) HAEMOPHILUS INFLUENZAE Not detected Not detected (test code = 3748521) NEISSERIA MENINGITIDIS Not detected Not detected (test code = 4061787) ENTEROBACTERIACEAE Not detected Not detected (test code = 1846265) ENTEROBACTER CLOACOE Not detected Not detected COMPLEX (test code = 0447185) KLEBSIELLA OXYTOCA Not detected Not detected (test code = 3882257) KLEBSIELLA PNEUMONIAE Not detected Not detected (test code = 1650) PROTEUS (test code = Not detected Not detected 2502629) SERRATIA MARCESCENS Not detected Not detected (test code = 9985952) SHIRIN ALBICANS (test Not detected Not detected code = 0953359) SHIRIN GLABRATA (test Not detected Not detected code = 3749394) SHIRIN KRUSEI (test Not detected Not detected code = 5116052) SHIRIN PARAPSILOSIS Not detected Not detected (test code = 2501227) SHIRIN TROPICALIS Not detected Not detected (test code = 6037046) ESCHERICHIA COLI (test Not detected Not detected code = 1247612) METHICILLIN-RESISTANCE Detected Not detected A Note: Antimicrobial GENE (test code = resistance can occur 6649464) via multiple mechanisms. A N ot Detected result for the [employer] antimicrobial resistance gene assays does not indicate antimicrobial susceptibility. Subculturing is required for sp ecies identification and susceptibility testing of isol ates. VANCOMYCIN-RESISTANCE GENE (test code = 8687315) CARBAPENEM-RESISTANCE GENE (test code = 9108883) ENTEROCOCCUS-BEAKER Not detected Not detected (test code = 6864872) PSEUDOMONAS Not detected Not detected AERUGINOSA-BEAKER (test code = 5884864) Other bacteria and resistance markers not targeted by this PCR panel cannot be excluded; therefore clinical correlation and follow up of serology, culture results, and other molecular studies is required. The results are not intended to be used as the sole means for clinical diagnosis or patient management decisions. This sample was tested at the [facility] using the [employer] Blood Culture ID Panel. It is FDA cleared and has been verified and approved by the [facility] for clinical use. [...] CONCENTRATION Decreased (CELLAVISION)(BEAKER) (test code = 3438) Plant Accountant ID - Anna Campos comments: Slide comments:CBC W/PLT COUNT & AUTO [id number] 07:50:38 Test Item Value Reference Range Interpretation [...] WBC 0-0 (BEAKER) (test code = 413) [id number] 07:22:30 Test Item Value Reference Range Interpretation Comments PARTIAL THROMBOPLASTIN TIME 77.1 seconds 22.5-36.0 H (BEAKER) (test code = 760) Strep pneumoniae [id number] 05:43:45 Test Item Value Reference Range Interpretation Comments Strep pneumoniae Presumptive negative Presumptive Antigen (test code = [place] [address]-7) pneumonia - see pneumococcal comment pneumonia - [...] test. Lab Interpretation Normal (test code = 90065-6) [facility] [id number] 05:43:45 Test Item Value Reference Range Interpretation [...] detection limit of the test. Legionella antigen, [id number] 05:42:00 Test Item Value Reference Range Interpretation Comments Legionella Urine Negative - see Negative for L. Antigen (test code comment pneumophi la = 57427-2) serogroup 1 ant igen, suggesting no r ecent or current infe ction with this serog roup. Legionellosis c annot be ruled out si nce other serogroup s and species may cau se disease. [facility]LEGION[facility]LLA ANTIGEN, [id number] 05:42:00 Test Item Value Reference Range Interpretation Comments L. PNEUMOPHILA Negative - see Negative fo r L. SEROGP 1 UR AG comment pneumophila (BEAKER) (test code serogrou p 1 antigen, = 1156) suggesting no r ecent or current infe ction with this serog roup. Legionellosis c annot be ruled out si nce other serogroup s and species may cau se disease. POCT-GLUCOSE [id number] 05:25:38 Test Item Value Reference Range Interpretation Comments POC-GLUCOSE METER 269 mg/dL 70-110 H : TESTED A T [facility] 6720 (BEAKER) (test code = [place], 1538) [address]: Plant Accountant/Techni salma ID = [id number] for Ra ndsom (contract), Pet [facility] BASIC METABOLIC [id number] 04:43:54 Test Item Value Reference Range Interpretation [...] S NOT APPLICABLE FOR DIALYSIS PATIEN TS. Plant Accountant ID - CHRISAYA LRAD, CHEST, 1 VIEW, NON [id number] 04:41:00Reason for exam:->COVIDShould this be performed at the bedside?->Yes [facility] 1950 Sex: MFINAL REPORT RAD, CHEST, 1 VIEW, NON DEPT INDICATION: COVID COMPARISON: Prior day's exam FINDINGS: Portable frontal view of the chest. IMPRESSION: Support Lines: Stable. Lungs and pleura: Unchanged airspace and pleural opacities. No pneumothorax.Heart and mediastinum: Stable contours. Stable surgical changes.Additional findings: None. Signed: Jacque Anglin Verified Date/Time: 06/14/2021 04:41:08 BLOOD GAS, [id number] 04:24:13 Test Item Value Reference Range Interpretation [...] (BEAKER) (test code = 1819) 70.0 POCT-GLUCOSE [id number] 23:53:11 Test Item Value Reference Range Interpretation Comments POC-GLUCOSE METER 255 mg/dL 70-110 H : TESTED A T [facility] 6720 (BEAKER) (test code = [place], 1538) [address]: Plant Accountant/Techni salma ID = [id number] for Sc gabriel (contract)Bar BLOOD GAS, [id number] 22:27:26 Test Item Value Reference Range Interpretation [...] (test code = 1819) 80.0 BASIC METABOLIC [id number] 18:42:50 Test Item Value Reference Range Interpretation [...] S NOT APPLICABLE FOR DIALYSIS PATIEN TS. Plant Accountant ID - BSC-Reactive [id number] 18:42:33 Test Item Value Reference Range Interpretation Comments CRP (test code = 676) 18.49 mg/dL 0.00-0.50 H BANDAR (test code = BANDAR) Plant Accountant ID - BS Lab Interpretation (test Abnormal code = 64050-0) [facility] campusC-REACTIVE [id number] 18:42:33 Test Item Value Reference Range Interpretation Comments C-REACTIVE PROTEIN (BEAKER) (test 18.49 mg/dL 0.00-0.50 H code = 676) Plant Accountant ID - [id number] 18:36:32 Test Item Value Reference Range Interpretation Comments PARTIAL THROMBOPLASTIN TIME 29.7 seconds 22.5-36.0 (BEAKER) (test code = 760) POCT-GLUCOSE [id number] 17:34:04 Test Item Value Reference Range Interpretation Comments POC-GLUCOSE METER 191 mg/dL 70-110 H : TESTED A T [facility] 6720 (BEAKER) (test code = [place], 1538) [address]: Plant Accountant/Techni salma ID = [id number] for Si ms (contract), Bill garcia BLOOD GAS, [id number] 17:13:19 Test Item Value Reference Range Interpretation [...] 1819) 100.0 RAD, CHEST, 1 VIEW, NON [id number] 16:50:00Reason for exam:->PNAShould this be performed at the bedside?->Yes [facility] 1950 [...] differential.Likely trace right-sided effusion. Signed: Kelvin Sosa MDReport Verified Date/Time: 06/13/2021 16:50:32 Reading Location: [address] Transitional Reading Room [id number] 15:08:02 Test Item Value Reference Range Interpretation Comments PROCALCITONIN (BEAKER) (test code 0.26 ng/mL <0.05 H = 3036) SEPSIS RISK (ng/mL)Low: 0.05-0.50Intermediate: 0.51-2.00High: >=2.01HEPATIC FUNCTION [id number] 13:00:38 Test Item Value Reference Range Interpretation [...] (test code = 40 U/L 6-55 347) Plant Accountant ID - CHRISAYA LPOCT-GLUCOSE [id number] 12:04:07 Test Item Value Reference Range Interpretation Comments POC-GLUCOSE METER 227 mg/dL 70-110 H : TESTED A T [facility] 6720 (BEAKER) (test code = [facility], 1538) [address]: Plant Accountant/Techni salma ID = [id number] for Moe whipple (contract), LaT lalitha BLOOD GAS, [id number] 08:56:57 Test Item Value Reference Range Interpretation [...] (BEAKER) (test code = 1819) 32.0 POCT-GLUCOSE [id number] 05:29:24 Test Item Value Reference Range Interpretation Comments POC-GLUCOSE METER 179 mg/dL 70-110 H : TESTED A T [facility] 6720 (BEAKER) (test code = [facility], 1538) [address]: Plant Accountant/Techni salma ID = [id number] for Kuldeep luna (contract), Sondra xis [id number] 04:09:14 Test Item Value Reference Range Interpretation Comments MAGNESIUM (BEAKER) (test code = 2.3 mg/dL 1.6-2.6 627) Plant Accountant ID - JAKE [id number] 04:09:14 Test Item Value Reference Range Interpretation Comments PHOSPHORUS (BEAKER) (test code = 1.9 mg/dL 2.3-4.7 L 604) Plant Accountant ID - JAKE MBASIC METABOLIC [id number] 04:09:13 Test Item Value Reference Range Interpretation [...] S NOT APPLICABLE FOR DIALYSIS PATIEN TS. Plant Accountant ID - JAKE MCBC W/PLT COUNT & AUTO [id number] 03:55:31 Test Item Value Reference Range Interpretation [...] (BEAKER) (test code = 2801) BLOOD GAS, [id number] 03:41:42 Test Item Value Reference Range Interpretation [...] (test code = 1819) 21.0 BASIC METABOLIC [id number] 22:07:51 Test Item Value Reference Range Interpretation [...] S NOT APPLICABLE FOR DIALYSIS PATIEN TS. Plant Accountant ID - DBRAD, ABDOMEN/KUB, 1 VIEW [id number] 19:08:00Reason for exam:- >Tube feeeds placement [facility] : 1950 Sex: [...] of this portable study. Signed: Kelvin Sosa MDReport Verified Date/Time: 06/12/2021 19:08:52 Reading Location: [address] Transitional Reading Room U/S, RENAL, [id number] 18:15:00Reason for exam:->VIANNEY/CKD [facility] : 1950 [...] vein are patent. BLADDER: Decompressed by a Armendariz catheter. IMPRESSION: Findings of medical renal disease. No hydronephrosis Signed: Fly Bean MDReport Verified Date/Time: 06/12/2021 18:15:27 C METABOLIC [id number] 17:36:19 Test Item Value Reference Range Interpretation [...] S NOT APPLICABLE FOR DIALYSIS PATIEN TS. Plant Accountant ID - AAHAMIDPOCT-GLUCOSE [id number] 17:27:16 Test Item Value Reference Range Interpretation Comments POC-GLUCOSE METER 316 mg/dL 70-110 H : TESTED A T [facility] 6720 (BEAKER) (test code = [place], 1538) [address]: Plant Accountant/Techni salma ID = [id number] for Fo ster (contract), LaT lalitha [id number] 14:48:31 Test Item Value Reference Range Interpretation Comments RPR (test code = 58044-3) Nonreactive Nonreactive Lab Interpretation (test code = Normal 95089-3) [id number] 14:48:31 Test Item Value Reference Range Interpretation Comments RPR SCREEN (GALE) (test code = Nonreactive Nonreactive 420) POCT-GLUCOSE [id number] 11:31:06 Test Item Value Reference Range Interpretation Comments POC-GLUCOSE METER 303 mg/dL 70-110 H : TESTED A T [facility] 6720 (GALE) (test code = [facility] [place] [facility], 1538) [address]: Plant Accountant/Techni salma ID = [id number] for Si ms (contract), Bill eya POCT-GLUCOSE [id number] 09:45:00 Test Item Value Reference Range Interpretation Comments POC-GLUCOSE METER 269 mg/dL 70-110 H : Notified RN/MD: (GALE) (test code = TESTED AT [facility] 6720 1538) HAYDEE [facility], [address]: Plant Accountant/Techni salma ID = [id number] for Si ms (contract), Bill eya 2D Echo W/Doppler(CW/PW/Color)2021-06-12 09:43:24[facility] MKCKESSON CPACHI [facility]RAD[facility], 1 VIEW, NON DEPT 2021-06-12 09:18:00Reason for exam:->sobShould this be performed at the bedside?->Yes[facility] : 1950 Sex: MFINAL REPORT INDICATION: sob COMPARISON: 06/10/2021 x-ray TECHNIQUE: Single frontalview of the chest. FINDINGS: Lines, tubes, and devices: The feeding tube tip extends into the stomach and out of the qgbmc-bl-bmlp.Lungs and pleura: Scarring in the right upper lobe. No effusion.Heart and mediastinum: Normal heart size. Median sternotomy wires are present.Osseous structures: No acute abnormality.Other: None. IMPRESSION: No acute intrathoracic abnormality. Signed: Marc Joy MDReport Verified Date/Time: 06/12/2021 09:18:02 Reading Location: [facility] Radiology Reading Room [id number] 03:25:57 Test Item Value Reference Range Interpretation Comments MAGNESIUM (BEAKER) (test code = 2.6 mg/dL 1.6-2.6 627) Plant Accountant ID - AMY [id number] 03:25:57 Test Item Value Reference Range Interpretation Comments PHOSPHORUS (BEAKER) (test code = 1.8 mg/dL 2.3-4.7 L 604) Plant Accountant ID - AMY GBASIC METABOLIC [id number] 03:25:56 Test Item Value Reference Range Interpretation [...] S NOT APPLICABLE FOR DIALYSIS PATIEN TS. Plant Accountant ID - AMY GCBC W/PLT COUNT & AUTO [id number] 03:11:13 Test Item Value Reference Range Interpretation [...] (BEAKER) (test code = 2801) BASIC METABOLIC [id number] 23:27:26 Test Item Value Reference Range Interpretation [...] S NOT APPLICABLE FOR DIALYSIS PATIEN TS. Plant Accountant ID - DBPOCT-GLUCOSE [id number] 22:04:07 Test Item Value Reference Range Interpretation Comments POC-GLUCOSE METER 265 mg/dL 70-110 H : TESTED A T [facility] 6720 (BEAKER) (test code = [place], 1538) [address]: Plant Accountant/Techni salma ID = [id number] for DE KEISHA (V)CLIVE BASIC METABOLIC [id number] 21:43:55 Test Item Value Reference Range Interpretation [...] S NOT APPLICABLE FOR DIALYSIS PATIEN TS. Plant Accountant ID - DBVitamin [id number] 20:56:20 Test Item Value Reference Range Interpretation Comments Vitamin B12 (test code = 515 pg/mL 036-526 7454-9) BANDAR (test code = BANDAR) Plant Accountant ID - DB Lab Interpretation (test Normal code = 02299-7) [facility] [id number] 20:56:20 Test Item Value Reference Range Interpretation Comments VITAMIN B12 (BEAKER) (test code = 515 pg/mL 213-816 774) Plant Accountant ID - DBUrea Nitrogen, random [id number] 19:31:10 Test Item Value Reference Range Interpretation Comments Urea Nitrogen, Ur 1288 mg/dL (test code = 3095-7) BANDAR (test code = Reference Range: No BANDAR) NormalsOperator ID - DB [facility] campusUREA NITROGEN, RANDOM [id number] 19:31:10 Test Item Value Reference Range Interpretation Comments UREA NITROGEN URINE (BEAKER) (test 1288 mg/dL code = 538) Reference Range: No NormalsOperator ID - DBChloride, random [id number] 19:31:05 Test Item Value Reference Range Interpretation Comments Chloride, Urine <20 meq/L (test code = 78722-6) BANDAR (test code = Reference Range: No BANDAR) NormalsOperator ID - DB [facility] campusCHLORIDE, RANDOM [id number] 19:31:05 Test Item Value Reference Range Interpretation Comments CHLORIDE URINE (BEAKER) (test code = < meq/L 682) Reference Range: No NormalsOperator ID - DBSodium, random [id number] 19:31:04 Test Item Value Reference Range Interpretation Comments Sodium Urine (test <20 meq/L code = 2955-3) BANDAR (test code = Reference Range: No BANDAR) NormalsOperator ID - DB [facility] [id number] 19:31:04 Test Item Value Reference Range Interpretation Comments SODIUM URINE (BEAKER) (test code = < meq/L 243) Reference Range: No NormalsOperator ID - DBCreatinine, random [id number] 19:30:58 Test Item Value Reference Range Interpretation Comments Creatinine, Ur 96.6 mg/dL (test code = 2161-8) BANDAR (test code = Reference Range: No BANDAR) NormalsOperator ID - DB [facility] campusCREATININE, RANDOM [id number] 19:30:58 Test Item Value Reference Range Interpretation Comments CREATININE URINE (BEAKER) (test 96.6 mg/dL code = 375) Reference Range: No NormalsOperator ID - DBUrinalysis with Microscopic If [id number] 19:25:42 Test Item Value Reference Range Interpretation Comments Color, UA (test code = Yellow 5778-6) Clarity, UA (test code = Cloudy 5767-9) Specific [place], UA (test 1.021 1.001-1.035 code = 5811-5) pH, UA (test code = 6.0 5.0-8.0 5803-2) Protein, UA (test code = 100 mg/dL Negative A 23621-0) Glucose, UA (test code = Negative Negative 365) Ketones, UA (test code = Negative Negative 2514-8) Bilirubin, UA (test code = Negative Negative 67302-3) Blood, UA (test code = Large Negative A 06091-0) Nitrite, UA (test code = Negative Negative 5802-4) Leukocytes, UA (test code Moderate Negative A = 5799-2) Urobilinogen, UA (test 0.2 mg/dL 0.2-1.0 code = 92400-2) Specimen Source (test code = 2795) BANDAR (test code = BANDAR) Plant Accountant ID - [auto]Plant Accountant ID - tech Lab Interpretation (test Abnormal code = 74927-1) [facility] campusUrinalysis Microscopic [id number] 19:25:42 Test Item Value Reference Range Interpretation Comments RBC, UA (test 41 See_Comment [Automated code = 52491-6) message] The system which generated this result [...] Bacteria, UA None Seen (test code = 33364-0) Mucus (test code Rare = 8247-9) Hyaline Casts, UA 12 See_Comment [Automate d (test code = message] The sy stem 01055-3) which generated this result transmitted reference range : /LPF. The refer ence range was not u sed to interpret th is result as normal/abnormal . Crystals, Urine None Seen (test code = 99402-5) Uric Acid Occasional Crystals (test code = 1583) BANDAR (test code = Plant Accountant ID - tech BANDAR) [facility]URINALYSIS WITH MICROSCOPIC IF [id number] 19:25:42 Test Item Value Reference Range Interpretation [...] = 463) SOURCE(BEAKER) (test code = 2795) Plant Accountant ID - [auto]Plant Accountant ID - techURINALYSIS [id number] 19:25:42 Test Item Value Reference Range Interpretation [...] CRYSTALS (BEAKER) (test Occasional code = 1583) Plant Accountant ID - techPOCT-GLUCOSE [id number] 17:58:19 Test Item Value Reference Range Interpretation Comments POC-GLUCOSE METER 190 mg/dL 70-110 H : TESTED A T [facility] 6720 (BEAKER) (test code = [facility], 1538) [address]: Plant Accountant/Techni salma ID = [id number] for Mallory hn (contract), Jea nne POCT-GLUCOSE [id number] 15:47:31 Test Item Value Reference Range Interpretation Comments POC-GLUCOSE METER 204 mg/dL 70-110 H : TESTED A T [facility] 6720 (BEAKER) (test code = [facility], 1538) [address]: Plant Accountant/Techni salma ID = [id number] for Mallory hn (contract), Jea nne T4, [id number] 15:21:27 Test Item Value Reference Range Interpretation Comments Free T4 (test code = 3024-7) 1.32 ng/dL 0.70-1.48 BANDAR (test code = BANDAR) Plant Accountant ID - DB Lab Interpretation (test Normal code = 25784-3) [facility] campusT4, [id number] 15:21:27 Test Item Value Reference Range Interpretation Comments FREE T4 (BEAKER) (test code = 655) 1.32 ng/dL 0.70-1.48 Plant Accountant ID - DBTSH/FREE T4 IF [id number] 14:37:26 Test Item Value Reference Range Interpretation Comments THYROID STIMULATING HORMONE 0.316 uIU/mL 0.350-4.940 L (BEAKER) (test code = 772) Plant Accountant ID - JULIETTE LB-TYPE NATRIURETIC FACTOR (BNP)2021-06-11 14:10:54 Test Item Value Reference Range Interpretation Comments B-TYPE NATRIURETIC PEPTIDE (BEAKER) 265 pg/mL 0-100 H (test code = 700) Plant Accountant ID - JULIETTE PRICE, ABDOMEN/KUB, 1 VIEW [id number] 11:10:00Reason for exam:->feeding tubeShould this be performed at the bedside?->Yes [facility] 1950 Sex: MFINAL REPORT TECHNIQUE: One view of the abdomen. INDICATION: 70-year-old man withfeeding tube. COMPARISON: Abdomen radiographs from less than one hour prior. IMPRESSION:Feeding tubetip terminates over the expected region of the gastroduodenal junction. Nonobstructive bowel gas pattern. Otherwise, no significant change since prior abdomen radiographs from less than one hour prior.Signed: Francisco Jackman MDReport Verified Date/Time: 06/11/2021 11:10:19 Reading Location: [address] Body Reading Room RAD, ABDOMEN/KUB, 1 VIEW 2021-06-11 11:08:00Reason for exam:->feeding tubeShould this be performed at the bedside?->Yes [facility] 1950 [...] less than one hour prior. Signed: Francisco Jackman Verified Date/Time: 06/11/2021 11:08:56 Reading Location: [address] Body Reading Room RAD, ABDOMEN/KUB, 1 VIEW [id number] 11:02:00Reason for exam:->feeding tube placement [facility] : 1950 Sex: MFINAL REPORT Abdomen , one view History:Feeding tube placement Comparison:none Findings: A feeding tube coiled in the gastric antrum and terminates near the fundus. Bowel gas patternappears nonobstructive. Signed: Dennis Cosme Verified Date/Time: 06/11/2021 11:02:08 [id number] 10:58:55 Test Item Value Reference Range Interpretation Comments Ammonia (test code = 52 See_Comment [Autom ated message] 47478-3) The system [place] generated this result transmitted ref erence range: 18 - 72 mol/L. The re ference range was not u sed to interpret this result as normal/abnor mal. Lab Interpretation (test Normal code = 15016-4) [facility] campusAMMONIA2022-02-06 10:58:55 Test Item Value Reference Range Interpretation Comments AMMONIA (BEAKER) (test code = 348) 52 mol/L 18-72 BASIC METABOLIC [id number] 07:22:06 Test Item Value Reference Range Interpretation [...] S NOT APPLICABLE FOR DIALYSIS PATIEN TS. Plant Accountant ID - PIAYA [id number] 07:06:32 Test Item Value Reference Range Interpretation Comments PHOSPHORUS (BEAKER) 3.2 mg/dL 2.3-4.7 Specimen slightly (test code = 604) hemolyzed Plant Accountant ID - PIAYA [id number] 07:06:31 Test Item Value Reference Range Interpretation Comments MAGNESIUM (BEAKER) 2.6 mg/dL 1.6-2.6 Specimen slightly (test code = 627) hemolyzed Plant Accountant ID - PIAYA LPOCT-GLUCOSE [id number] 06:53:00 Test Item Value Reference Range Interpretation Comments POC-GLUCOSE METER 209 mg/dL 70-110 H : TESTED Jake Alexander [facility] 6720 (BEAKER) (test code = [place], 1538) [address]: Plant Accountant/Techni salma ID = [id number] for Cinda inchole (contract)Trang CBC W/PLT COUNT & AUTO [id number] 06:50:46 Test Item Value Reference Range Interpretation [...] PERCENT (BEAKER) (test code = 2801) POCT-GLUCOSE [id number] 00:30:13 Test Item Value Reference Range Interpretation Comments POC-GLUCOSE METER 224 mg/dL 70-110 H : TESTED A T [facility] 6720 (BEAKER) (test code = [place], 1538) [address]: Plant Accountant/Techni salma ID = [id number] for Cinda nichole (contract)Trang N-[id number] 19:24:58 Test Item Value Reference Range Interpretation Comments D-Dimer, Quant (test 0.89 See_Comment H [Autom ated code = 60845-7) message] The system which generated this result [...] range. Lab Interpretation Abnormal (test code = 39621-7) [facility] campusD-[id number] 19:24:58 Test Item Value Reference Range Interpretation [...] exclusion of thrombosis is within 95-100% range. PT/[id number] 19:23:56 Test Item Value Reference Range Interpretation [...] is 2.5-3.5 for patients with mechanical heart valves.[id number] 19:22:16 Test Item Value Reference Range Interpretation Comments PARTIAL THROMBOPLASTIN TIME 28.0 seconds 22.5-36.0 (BEAKER) (test code = 760) [id number] 19:22:15 Test Item Value Reference Range Interpretation Comments Fibrinogen (test code = 3255-7) 423 mg/dl 225-434 Lab Interpretation (test code = Normal 33293-3) [facility] campusFIBRINOGEN2022-02-05 19:22:15 Test Item Value Reference Range Interpretation Comments FIBRINOGEN LEVEL (BEAKER) (test 423 mg/dl 225-434 code = 658) PROTHROMBIN TIME/[id number] 19:21:35 Test Item Value Reference Range Interpretation Comments PROTIME (BEAKER) 14.1 seconds 11.9-14.2 (test code = 759) INR (BEAKER) (test 1.11 See_Comment [Automat ed message] code = 370) The system hdtMEDIA h generated this result transmitted ref erence [...] hemolyzed EGFR (BEAKER) (test 28 mL/min/1.73 ESTIMA OZEIL GFR IS code = 1092) sq m NOT ACCURATE CREATININE CLEARANCE IN PREDICTING GLOMERULAR FILTRATION RATE . ESTIMATED GFR I S NOT APPLICABLE FOR DIALYSIS PATIEN TS. Plant Accountant ID - [id number] 19:20:38 Test Item Value Reference Range Interpretation Comments PHOSPHORUS (BEAKER) 3.3 mg/dL 2.3-4.7 Specimen slightly (test code = 604) hemolyzed Plant Accountant ID - DBC-REACTIVE [id number] 19:20:38 Test Item Value Reference Range Interpretation Comments C-REACTIVE PROTEIN (BEAKER) (test 0.87 mg/dL 0.00-0.50 H code = 676) Plant Accountant ID - [id number] 19:20:37 Test Item Value Reference Range Interpretation Comments MAGNESIUM (BEAKER) 2.5 mg/dL 1.6-2.6 Specimen slightly (test code = 627) hemolyzed Plant Accountant ID - DBLACTIC ACID, [id number] 19:14:55 Test Item Value Reference Range Interpretation Comments LACTATE BLOOD VENOUS 1.50 mmol/L 0.50-2.20 Specime n slightly (2) (BEAKER) (test hemolyzed code = 2872) Plant Accountant ID - DBCBC W/PLT COUNT & AUTO [id number] 19:01:49 Test Item Value Reference Range Interpretation [...] (BEAKER) (test code = 2801) BLOOD GAS, [id number] 18:54:59 Test Item Value Reference Range Interpretation [...] 1819) 28.0 RAD, CHEST, 1 VIEW, NON [id number] 17:50:00Reason for exam:->admission CXR, covidShould this be performed at the bedside?->Yes [facility] 1950 Sex: [...] focal pneumonia or pulmonary edema. Signed: Shanti [place] Verified Date/Time: 06/10/2021 17:50:26 Reading Location: [address] Body Reading Room OSE BEDSIDE [id number] 12:07:00 Test Item Value Reference Range Interpretation Comments GLUCOSE BEDSIDE TESTING (test code 137 MG/DL 60-99 H = GLUBED) GLYCOSYLATED HEMOGLOBIN [id number] 11:19:00 Test Item Value Reference Range Interpretation Comments GLYCOSYLATED 6.0 % 4.8-5.9 H Any condition t hat HEMOGLOBIN (HA1C) shortens e rythocyte (test code = survival or dec reasesmean GLYHGB) erythrocyte age (e.g., recovery from a cute blood loss,hemolytic anemia) will falsely lo wer HGBA1c resultsregardle ss of the method used. HG BA1c results from pa tientswith HbSS, HbCC, and HbSc must be interpreted with cautiongiven th e pathological pr ocesses, including anemia,increase d red cell turnover, trans fusion requirements, thatadversely i mpact HGBA1c as a mar ker of long-term glycemiccontrol . Alternative for ms of testing such as fructosaminesho uld be considered for these patients. MEAN BLOOD GLUCOSE 126 MG/DL 70-110 H (test code = MBG) BASIC METABOLIC [id number] 07:59:00 Test Item Value Reference Range Interpretation [...] LDL) mg/dLNEAR OPTIMAL/ABOVE OPTIMAL........ .100-12 9 mg/dL BORDER LINE HIGH.........13 0-159 mg/dL HIGH.........16 0-189 mg/dL VERY HIGH.........>/ = 190 mg/dL PATIENT REFUSED; NORM Soto (RN)BASIC METABOLIC [id number] 07:50:00 Test Item Value Reference Range Interpretation [...] MG/DL 0-99 code = LDL) PATIENT REFUSED; NOMR MOORE)PROTHROMBIN [id number] 07:46:00 Test Item Value Reference Range Interpretation [...] 3.0 - 4.5 PATIENT REFUSED; PER:ANTONIO MOORE)PTT [id number] 07:46:00 Test Item Value Reference Range Interpretation Comments PTT ACTIVATED (test code = APTT) 39.0 SECONDS 25.1-36.5 H PATIENT REFUSED; PER:ANTONIO MOORE)CBC W/AUTO [id number] 07:35:00 Test Item Value Reference Range Interpretation [...] PATIENT REFUSED; PER ANTONIO Soto (RN)GLUCOSE BEDSIDE [id number] 04:56:00 Test Item Value Reference Range Interpretation Comments GLUCOSE BEDSIDE TESTING (test code 123 MG/DL 60-99 H = GLUBED) GLUCOSE BEDSIDE [id number] 18:50:00 Test Item Value Reference Range Interpretation Comments GLUCOSE BEDSIDE TESTING (test code 221 MG/DL 60-99 H = GLUBED) GLUCOSE BEDSIDE [id number] 15:43:00 Test Item Value Reference Range Interpretation Comments GLUCOSE BEDSIDE TESTING (test code 126 MG/DL 60-99 H = GLUBED) GLUCOSE BEDSIDE [id number] 11:35:00 Test Item Value Reference Range Interpretation Comments GLUCOSE BEDSIDE TESTING (test code 161 MG/DL 60-99 H = GLUBED) GLYCOSYLATED HEMOGLOBIN [id number] 10:30:00 Test Item Value Reference Range Interpretation [...] H (test code = MBG) COMPREHENSIVE METABOLIC [id number] 09:27:00 Test Item Value Reference Range Interpretation [...] Concentration C oncentration Concentration== ====TBil 7mg/dl TBil/ 1 .2mg/dl +0.23mg.dl +0.2 0mg/dlBuBc 3.5mg/dl Bu/0.8 mg/dl +0.25mg/dl +0.2 4mg/dlBuBc 7 mg/dl Bu/14.2mg /dl +0.38mg/dl +0.2 5mg/dlBuBc 5mg/dl Bc/0mg/d l +0.25mg/dl +0.1 5mg/dlBuBc 3.5mg/dl Bc/2.8 mg/dl +0.25mg/dl +0.2 3mg/dl SGOT/AST (test 23 UNITS/L 17-59 N code = AST) SGPT/ALT (test 15 UNITS/L <50 code = ALT) ALKALINE 87 UNITS/L 38-126 N PHOSPHATASE (test code = ALKP) [id number] 09:27:00 Test Item Value Reference Range Interpretation Comments TROPONIN-I (test code = TROPI) 0.089 NG/ML 0.012-0.033 H T4 [id number] 09:07:00 Test Item Value Reference Range Interpretation Comments T4 FREE (test code = T4F) 1.5 NG/DL 0.78-2.19 N Specimen comments: please run from tsh previously drawnCOMPREHENSIVE METABOLIC [id number] 08:51:00 Test Item Value Reference Range Interpretation [...] one of thoseassays per formed in our lab.Riya borges testing perform ed at [facility] determined that [...] 38-126 N PHOSPHATASE (test code = ALKP) [id number] 08:51:00 Test Item Value Reference Range Interpretation Comments TROPONIN-I (test code = TROPI) NG/ML 0.0-0.045 CBC W/AUTO [id number] 08:36:00 Test Item Value Reference Range Interpretation [...] 0.00 K/mm3 0.0-0.1 N NRBC#) GLUCOSE BEDSIDE [id number] 07:36:00 Test Item Value Reference Range Interpretation Comments GLUCOSE BEDSIDE TESTING (test code 178 MG/DL 60-99 H = GLUBED) URINALYSIS [id number] 04:39:00 Test Item Value Reference Range Interpretation [...] UACULT) Criteria SOURCE OF URINE: CLEAN CATCHURINALYSIS [id number] 04:35:00 Test Item Value Reference Range Interpretation [...] SOURCE OF URINE: CLEAN CATCHTSH REFLEX TO [id number] 04:06:00 Test Item Value Reference Range Interpretation Comments TSH REFLEX TO FT4 0.391 MIU/L 0.65-4.68 L Please be aware that (test code = bias results fo r TSH TSHREFLEX) may occur forpa tient who are taking Biotin supplements. [id number] 04:06:00 Test Item Value Reference Range Interpretation Comments MAGNESIUM (test code = MAG) 1.8 MG/DL 1.6-2.3 N LIPOPROTEIN LDL [id number] 04:06:00 Test Item Value Reference Range Interpretation Comments LIPOPROTEIN LDL DIRECT 92 mg/dL 100-129 L ===== (test code = LDLDIR) ======= ==Refe rence Interval: mg/dL mmol/L--------- ------ ------ ------ --Optimal <100 <2.6Near/above optimal 100-129 2.6-3.3Borderli ne High 130-159 3.4-4.1High 160 -189 4.1-4.9Very Hig h >=190 >=4.9==== ===== This LDL result is a direct measurement.=== ====== [id number] 04:06:00 Test Item Value Reference Range Interpretation Comments TROPONIN-I (test code = TROPI) 0.075 NG/ML 0.012-0.033 H [id number] 03:48:00 Test Item Value Reference Range Interpretation Comments MAGNESIUM (test code = MAG) 1.8 MG/DL 1.6-2.3 N LIPOPROTEIN LDL [id number] 03:48:00 Test Item Value Reference Range Interpretation Comments LIPOPROTEIN LDL DIRECT (test code = mg/dL 100-129 LDLDIR) [id number] 03:48:00 Test Item Value Reference Range Interpretation Comments TROPONIN-I (test code = TROPI) 0.075 NG/ML 0.012-0.033 H [id number] 03:38:00 Test Item Value Reference Range Interpretation Comments MAGNESIUM (test code = MAG) 1.8 MG/DL 1.6-2.3 N [id number] 03:38:00 Test Item Value Reference Range Interpretation Comments TROPONIN-I (test code = TROPI) NG/ML 0.0-0.045 GLUCOSE BEDSIDE [id number] 23:56:00 Test Item Value Reference Range Interpretation Comments GLUCOSE BEDSIDE TESTING (test code 211 MG/DL 60-99 H = GLUBED) HEMOGLOBIN [id number] 09:40:00 Test Item Value Reference Range Interpretation Comments HEMOGLOBIN A1C (BEAKER) (test code = 6.1 % 4.3-6.1 368) RAD, CHEST, 1 VIEW, NON [id number] 09:36:00Reason for exam:->sobShould this be performed at the bedside?->YesFINAL REPORT Chest one view compared to January 22 Discussion: There is cardiac prominence and interstitial congestion. There is linear opacity in both lower lungs. No effusion or pneumothorax. Signed: Wilmar Tran Verified Date/Time: 01/23/2018 09:36:57 Reading Location: [facility] Radiology Reading Room POCT-GLUCOSE [id number] 08:04:00 Test Item Value Reference Range Interpretation Comments POC-GLUCOSE METER 176 mg/dL 70-[address] [facility] 67[address] (BEAKER) (test code = [place] 1538) [address] [id number] 06:49:00 Test Item Value Reference Range Interpretation Comments MAGNESIUM (BEAKER) 2.1 mg/dL 1.6-2.6 Specimen slightly (test code = 627) hemolyzed BASIC METABOLIC [id number] 06:49:00 Test Item Value Reference Range Interpretation [...] PATIEN TS. CBC W/PLT COUNT & AUTO [id number] 06:30:00 Test Item Value Reference Range Interpretation [...] PERCENT (BEAKER) (test code = 2801) POCT-GLUCOSE [id number] 22:19:00 Test Item Value Reference Range Interpretation Comments POC-GLUCOSE METER 235 mg/dL 70-[address] [facility] 67[address] ([facility]) (test code = [place] 1538) [address] TROPONIN [id number] 17:45:00 Test Item Value Reference Range Interpretation [...] B-TYPE NATRIURETIC PEPTIDE 1407 pg/mL 0-100 H ([facility]) (test code = 700) [id number] 17:35:00 Test Item Value Reference Range Interpretation Comments MAGNESIUM (BEAKER) (test code = 1.9 mg/dL 1.6-2.6 627) COMPREHENSIVE METABOLIC [id number] 17:35:00 Test Item Value Reference Range Interpretation [...] NOT APPLICABLE FOR DIALYSIS PATIEN TS. LIPID [id number] 17:35:00 Test Item Value Reference Range Interpretation [...] 160-189 Very High >=190LACTIC ACID, VENOUS, WHOLE [id number] 17:29:00 Test Item Value Reference Range Interpretation Comments LACTATE BLOOD VENOUS 1.0 mmol/L 0.5-2.2 Specime n slightly (2) (BEAKER) (test hemolyzed code = 2872) Effective 09/07/2015: Units/Reference Range ChangeNew: 0.5-2.2 mmol/L Previous: 5- 20 mg/[id number] 17:29:00 Test Item Value Reference Range Interpretation Comments PARTIAL THROMBOPLASTIN TIME 46.7 seconds 22.5-36.0 H (BEAKER) (test code = 760) PROTHROMBIN [id number] 17:28:00 Test Item Value Reference Range Interpretation [...] mechanical heart valves.CBC W/PLT COUNT & AUTO [id number] 17:24:00 Test Item Value Reference Range Interpretation [...] = 2801) RAD, CHEST, 1 VIEW, NON [id number] 17:16:00Reason for exam:->sp acute respiratory failure/bronchospasmShould this [...] enlarged. No acute osseous abnormality. Signed: Clayton Banegas Verified Date/Time: 01/22/2018 17:16:12Reading Location: [facility] Mammo Reading Room POCT-GLUCOSE [id number] 17:12:00 Test Item Value Reference Range Interpretation Comments POC-GLUCOSE METER 118 mg/dL 70-[address] [facility] [address] (BEAKER) (test code = [place] 1538) [address] BLOOD GAS, [id number] 16:35:00 Test Item Value Reference Range Interpretation [...] (test code = 1819) 32.0 % POCT-GLUCOSE [id number] 14:15:00 Test Item Value Reference Range Interpretation Comments POC-GLUCOSE METER 69 mg/dL 70-110 L Will Repea t Test/TESTED (BEAKER) (test code = AT [facility] [address] [facility] 1538) [facility] 7703 0 POCT-GLUCOSE [id number] 08:43:00 Test Item Value Reference Range Interpretation Comments POC-GLUCOSE METER 277 mg/dL 70-110 H TESTED AT [place] 7162120 (BEAKER) (test code = [place] 1538) [address] [id number] 06:20:00 Test Item Value Reference Range Interpretation Comments PHOSPHORUS (BEAKER) (test code = 3.3 mg/dL 2.3-4.7 604) [id number] 06:20:00 Test Item Value Reference Range Interpretation Comments MAGNESIUM (BEAKER) (test code = 1.8 mg/dL 1.6-2.6 627) BASIC METABOLIC [id number] 06:20:00 Test Item Value Reference Range Interpretation [...] PATIEN TS. CBC W/PLT COUNT & AUTO [id number] 06:09:00 Test Item Value Reference Range Interpretation [...] PERCENT (BEAKER) (test code = 2801) POCT-GLUCOSE [id number] 22:48:00 Test Item Value Reference Range Interpretation Comments POC-GLUCOSE METER 196 mg/dL 70-[address] [facility] 6720 (BEAKER) (test code = [facility] 1538) [address] POCT-GLUCOSE [id number] 17:21:00 Test Item Value Reference Range Interpretation Comments POC-GLUCOSE METER 122 mg/dL 70-[address] [facility] 6720 (BEAKER) (test code = [facility] 1538) [address] [id number] 13:13:00 Test Item Value Reference Range Interpretation Comments PHOSPHORUS (BEAKER) (test code = 2.4 mg/dL 2.3-4.7 604) BASIC METABOLIC [id number] 13:13:00 Test Item Value Reference Range Interpretation [...] S NOT APPLICABLE FOR DIALYSIS PATIEN TS. [id number] 13:08:00 Test Item Value Reference Range Interpretation Comments MAGNESIUM (BEAKER) (test code = 1.7 mg/dL 1.6-2.6 627) CBC W/PLT COUNT & AUTO [id number] 12:50:00 Test Item Value Reference Range Interpretation [...] PERCENT (BEAKER) (test code = 2801) POCT-GLUCOSE [id number] 12:42:00 Test Item Value Reference Range Interpretation Comments POC-GLUCOSE METER 174 mg/dL 70-[address] [facility] 67 [facility] ([facility] = [facility] 1538) [address] POCT-GLUCOSE [id number] 08:01:00 Test Item Value Reference Range Interpretation Comments POC-GLUCOSE METER 175 mg/dL 70-110 H TESTED AT [place] [address] ([facility]) (test code = [facility]REE[facility]Y [place] [facility] 1538) [address] RAD, CHEST, 1 VIEW, NON [id number] 03:44:00Reason for exam:->ptxShould this be performed at [...] Verified Date/Time: 11/18/2017 03:44:0 4 Reading Location: [address] Reading Room POCT-GLUCOSE [id number] 21:05:00 Test Item Value Reference Range Interpretation Comments POC-GLUCOSE METER 145 mg/dL 70-110 H TESTED AT [place] [address] ([facility]) (test code = [facility] [facility] 1538) [address] POCT-GLUCOSE [id number] 17:19:00 Test Item Value Reference Range Interpretation Comments POC-GLUCOSE METER 129 mg/dL 70-110 H TESTED AT [place] [address] ([facility]) (test code = [facility]REE[place] [facility] 1538) [address] POCT-GLUCOSE [id number] 12:12:00 Test Item Value Reference Range Interpretation Comments POC-GLUCOSE METER 194 mg/dL 70-110 H TESTED AT [place] [address] ([facility]) (test code = [place]REE[place]Y [place] [facility] 1538) [address] POCT-GLUCOSE [id number] 07:30:00 Test Item Value Reference Range Interpretation Comments POC-GLUCOSE METER 171 mg/dL 70-110 H TESTED AT [place] [address] ([facility]) (test code = [place] [facility] 1538) [address] RAD, CHEST, 1 VIEW, NON [id number] 07:27:00Reason for exam:->ptxShould this be performed at [...] No pleural effusion is seen. Signed: Sammie Estebanort Verified Date/Time: 11/17/2017 07:27:16 Reading Location: [facility] [address] [facility] Reading Room [id number] 07:19:00 Test Item Value Reference Range Interpretation Comments MAGNESIUM (BEAKER) (test code = 1.9 mg/dL 1.6-2.6 627) BASIC METABOLIC [id number] 07:19:00 Test Item Value Reference Range Interpretation [...] NOT APPLICABLE FOR DIALYSIS PATIEN TS. POCT-GLUCOSE [id number] 21:30:00 Test Item Value Reference Range Interpretation Comments POC-GLUCOSE METER 214 mg/dL 70-[address] [facility] 6720 (BEAKER) (test code = [place] 1538) [address] URINALYSIS W/ REFLEX URINE [id number] 16:32:00 Test Item Value Reference Range Interpretation [...] = 2795) RAD, CHEST, 1 VIEW, NON [id number] 15:34:00Reason for exam:->ptxShould this be performed at [...] the left sided chest tube. Signed: Sammie Esteban Date/Time: 11/16/2017 15:34:49 Reading Location: [address] Consult Reading Room -GLUCOSE [id number] 12:10:00 Test Item Value Reference Range Interpretation Comments POC-GLUCOSE METER 203 mg/dL 70-[address] [facility] 6720 ([facility] (test code = [place]REE[place]Y [place] [facility] 1538) [address] POCT-GLUCOSE [id number] 08:21:00 Test Item Value Reference Range Interpretation Comments POC-GLUCOSE METER 181 mg/dL 70-[address] [facility] 6720 ([facility] (test code = BREE[place]Y [place] [facility] 1538) [address] RAD, CHEST, 1 VIEW, NON [id number] 08:03:00while patient is intubated or has chest tubes.Reason for exam:->PostopShould this be performed atthe bedside?->YesFINAL REPORT Chest one view compared to November 15 Discussion: Left chest tube is again noted. A left apical pneumothorax appears minimally larger now with pleural separation 1.8 cm. Patchy airspace opacities left mid lung overall similar. No effusion. IMPRESSIONS: A left-sided pneumothorax appears minimally larger. Signed: Wilmar Tranepgerardo Verified Date/Time: 11/16/2017 08:03:32 Reading Location: [address] Reading Room POCT- GLUCOSE [id number] 00:11:00 Test Item Value Reference Range Interpretation Comments POC-GLUCOSE METER 159 mg/dL 70-110 H TESTED AT [place] [address] ([facility]) (test code = [facility] 1538) [address] POCT-GLUCOSE [id number] 20:33:00 Test Item Value Reference Range Interpretation Comments POC-GLUCOSE METER 163 mg/dL 70-110 H TESTED AT [place] [address] ([facility]) (test code = [facility] 1538) [address] POCT-GLUCOSE [id number] 17:33:00 Test Item Value Reference Range Interpretation Comments POC-GLUCOSE METER 183 mg/dL 70-110 H TESTED AT [place] [address] ([facility]) (test code = [facility] 1538) [address] URINE IMMUNOFIXATION, [id number] 17:17:00 Test Item Value Reference Range Interpretation Comments PROTEIN, URINE 30 mg/dL 0-14 H ([facility]) (test code = 1569) ALBUMIN URINE ELP 61.4 % ([facility]) (test code = 1018) GAMMA GLOBULIN URINE 38.6 % ([facility]) (test code = 1015) URINE GERARD [id number] No monoclonal proteins (AKER) (test code = or monoclonal free 2602) light chains detected. [id number] Raine Martin MD ([facility]) (test code = (electronic signature) 2603) RAD, CHEST, 1 VIEW, NON [id number] 13:19:00while patient is intubated or has chest tubes.Reason for exam:->PostopShould this be performed atthe bedside?->YesFINAL REPORT Chest one view compared to November 14 Discussion: Left chest tube, right IJ pulmonary catheter are noted. There is pulmonary congestion and right midlung linear atelectasis grossly similar. No gross effusion. Tiny left apical pneumothorax unchanged. Signed: Wilmar Tran MDReport Verified Date/Time: 11/15/2017 13:19:28 Reading Location: [facility] Radiology Reading Room URINE PROTEIN ELECTROPHORESIS, [id number] 12:47:00 Test Item Value Reference Range Interpretation Comments PROTEIN, URINE 12 mg/dL 0-14 (BEAKER) (test code = 1569) ALBUMIN URINE ELP 61.4 % (BEAKER) (test code = 1018) GAMMA GLOBULIN URINE 38.6 % (BEAKER) (test code = 1015) UPEP, [id number] (BEAKER) No monoclonal bands (test code = 2604) detected. [id number] Raine Martin MD ([facility]) (test code = (electronic signature) 8455) PROTEIN ELECTROPHORESIS, [id number] 12:29:00 Test Item Value Reference Range Interpretation [...] a hemolyzed sample. No monoclonal bands detected. [id number] Raine Martin MD ([facility] (test code = (electronic signature) 0094) PROTEIN TOTAL SERUM, 7.0 gm/dL 6.0-8.3 SPEP (BEAKER) (test code = 2660) BLOOD GAS, [id number] 08:21:00 Test Item Value Reference Range Interpretation [...] code = 1819) 20.0 % BASIC METABOLIC [id number] 08:03:00 Test Item Value Reference Range Interpretation [...] DIALYSIS PATIEN TS. LACTIC ACID, ARTERIAL, WHOLE [id number] 07:57:00 Test Item Value Reference Range Interpretation Comments LACTATE BLOOD ARTERIAL (2) 0.8 mmol/L 0.5-2.2 (BEAKER) (test code = 2879) Effective 09/07/2015: Units/Reference Range ChangeNew: 0.5-2.2 mmol/L Previous: 5- 20 mg/[id number] 02:55:00 Test Item Value Reference Range Interpretation Comments PHOSPHORUS (BEAKER) (test code = 2.8 mg/dL 2.3-4.7 604) [id number] 02:55:00 Test Item Value Reference Range Interpretation Comments MAGNESIUM (BEAKER) (test code = 2.1 mg/dL 1.6-2.6 627) BASIC METABOLIC [id number] 02:55:00 Test Item Value Reference Range Interpretation [...] NOT APPLICABLE FOR DIALYSIS PATIEN TS. PROTHROMBIN TIME/[id number] 02:53:00 Test Item Value Reference Range Interpretation Comments PROTIME (BEAKER) (test code = 14.9 seconds 11.7-14.7 H 759) INR (BEAKER) (test code = 370) 1.2 <=5.9 RECOMMENDED COUMADIN/WARFARIN INR THERAPY RANGESSTANDARD DOSE: 2.0 - 3.0 Includes: PROPHYLAXIS for venous thrombosis, systemic embolization; TREATMENT for venous thrombosis and/or pulmonary embolus.HIGH RISK: Target INR is 2.5-3.5 for patients with mechanical heart valves.[id number] 02:53:00 Test Item Value Reference Range Interpretation Comments PARTIAL THROMBOPLASTIN TIME 34.0 seconds 22.5-36.0 (BEAKER) (test code = 760) CBC W/PLT COUNT & AUTO [id number] 02:43:00 Test Item Value Reference Range Interpretation [...] PERCENT (BEAKER) (test code = 2801) PLATELET [id number] 02:35:00 Test Item Value Reference Range Interpretation Comments PLATELET COUNT (BEAKER) (test 167 K/CU MM 150-450 code = 756) GLUCOSE-STAT [id number] 02:32:00 Test Item Value Reference Range Interpretation Comments GLUCOSE RANDOM (BEAKER) (test code 112 mg/dL 70-110 H = 652) HGB/HCT (H&H) - STAT [id number] 02:32:00 Test Item Value Reference Range Interpretation Comments HEMOGLOBIN (BEAKER) (test code = 10.5 g/dL 13.0-16.8 L 410) HEMATOCRIT (BEAKER) (test code = 31.0 % 40.0-50.0 L 411) CALCIUM, [id number] 02:31:00 Test Item Value Reference Range Interpretation Comments CALCIUM IONIZED (BEAKER) (test 1.18 mmol/L 1.12-1.27 code = 698) PH, BLOOD (BEAKER) (test code = 7.38 1810) SODIUM NA-STAT [id number] 02:31:00 Test Item Value Reference Range Interpretation Comments SODIUM (BEAKER) (test code = 381) 137 meq/L 135-148 POTASSIUM-STAT [id number] 02:31:00 Test Item Value Reference Range Interpretation Comments POTASSIUM (BEAKER) (test code = 3.7 meq/L 3.6-5.5 379) POCT-GLUCOSE [id number] 00:40:00 Test Item Value Reference Range Interpretation Comments POC-GLUCOSE METER 129 mg/dL 70-[address] [facility] 6720 ([facility] (test code = [place] [place] 1538) [address] POCT-GLUCOSE [id number] 00:40:00 Test Item Value Reference Range Interpretation Comments POC-GLUCOSE METER 143 mg/dL 70-[address] [facility] 6720 (BEAKER) (test code = [place] 1538) [address] POCT-GLUCOSE [id number] 21:41:00 Test Item Value Reference Range Interpretation Comments POC-GLUCOSE METER 179 mg/dL 70-[address] [facility] 6720 (BEAKER) (test code = [place] 1538) [address] BLOOD GAS, [id number] 19:39:00 Test Item Value Reference Range Interpretation [...] (test code = 1819) 40.0 % GLUCOSE-STAT [id number] 19:39:00 Test Item Value Reference Range Interpretation Comments GLUCOSE RANDOM (BEAKER) (test code 160 mg/dL 70-110 H = 652) HGB/HCT (H&H) - STAT [id number] 19:39:00 Test Item Value Reference Range Interpretation Comments HEMOGLOBIN (BEAKER) (test code = 11.0 g/dL 13.0-16.8 L 410) HEMATOCRIT (BEAKER) (test code = 32.0 % 40.0-50.0 L 411) SODIUM NA-STAT [id number] 19:37:00 Test Item Value Reference Range Interpretation Comments SODIUM (BEAKER) (test code = 381) 137 meq/L 135-148 POTASSIUM-STAT [id number] 19:37:00 Test Item Value Reference Range Interpretation Comments POTASSIUM (BEAKER) (test code = 4.0 meq/L 3.6-5.5 379) BLOOD GAS, [id number] 18:02:00 Test Item Value Reference Range Interpretation [...] arterial line present.RAD, CHEST, 1 VIEW, NON [id number] 17:20:00 Reason for exam:->PostopShould this be performed at the bedside?->YesFINAL REPORT EXAM: Frontal chest radiograph HISTORY PROVIDED: Postop COMPARISON: 11/13/2017 IMPRESSION:The tip of an endotracheal tube terminates 3.8 cm above the alexia. A right IJapproach Drew-Jun catheter has been placed with its tip [...] No acute osseous abnormality. Signed: Clayton Banegas [facility] Verified Date/Time: 11/14/2017 17:20:20 Reading Location: [facility] Reading Room BASI METABOLIC [id number] 16:02:00 Test Item Value Reference Range Interpretation [...] S NOT APPLICABLE FOR DIALYSIS PATIEN TS. [id number] 16:02:00 Test Item Value Reference Range Interpretation Comments PHOSPHORUS (BEAKER) (test code = 2.3 mg/dL 2.3-4.7 604) [id number] 16:02:00 Test Item Value Reference Range Interpretation Comments MAGNESIUM (BEAKER) (test code = 2.6 mg/dL 1.6-2.6 627) LACTIC ACID, ARTERIAL, WHOLE [id number] 15:58:00 Test Item Value Reference Range Interpretation Comments LACTATE BLOOD 0.9 mmol/L 0.5-2.2 Specimen sligh tly ARTERIAL (2) (BEAKER) hemoly zed (test code = 2874) Effective 09/07/2015: Units/Reference Range ChangeNew: 0.5-2.2 mmol/L Previous: 5- 20 mg/dLCBC W/PLT COUNT & AUTO [id number] 15:47:00 Test Item Value Reference Range Interpretation [...] (BEAKER) (test code = 2801) OXYGEN SATURATION, [id number] 15:37:00 Test Item Value Reference Range Interpretation Comments O2 SATURATION (MEASURED) (BEAKER) 55.5 % (test code = 1455) CALCIUM, [id number] 15:37:00 Test Item Value Reference Range Interpretation Comments CALCIUM IONIZED (BEAKER) (test 1.12 mmol/L 1.12-1.27 code = 698) PH, BLOOD (BEAKER) (test code = 7.41 1810) SODIUM NA-STAT [id number] 15:37:00 Test Item Value Reference Range Interpretation Comments SODIUM (BEAKER) (test code = 381) 138 meq/L 135-148 POTASSIUM-STAT [id number] 15:37:00 Test Item Value Reference Range Interpretation Comments POTASSIUM (BEAKER) (test code = 3.6 meq/L 3.6-5.5 379) BLOOD GAS, [id number] 15:37:00 Test Item Value Reference Range Interpretation [...] (test code = 1819) 60.0 % GLUCOSE-STAT [id number] 15:37:00 Test Item Value Reference Range Interpretation Comments GLUCOSE RANDOM (BEAKER) (test code 162 mg/dL 70-110 H = 652) HEMOGLOBIN-STAT [id number] 15:37:00 Test Item Value Reference Range Interpretation Comments HEMOGLOBIN (BEAKER) (test code = 11.2 g/dL 13.0-16.8 L 410) HGB/HCT (H&H) - STAT [id number] 15:37:00 Test Item Value Reference Range Interpretation Comments HEMOGLOBIN (BEAKER) (test code = 11.2 GM/DL 13.0-16.8 L 410) HEMATOCRIT (BEAKER) (test code = 33.0 % 40.0-50.0 L 411) [id number] 14:04:00 Test Item Value Reference Range Interpretation Comments ACTIVATED CLOTTING TIME 114 sec TEST ED AT [facility] 6720 (BEAKER) (test code = [place] 441) [address] [id number] 14:04:00 Test Item Value Reference Range Interpretation Comments ACTIVATED CLOTTING TIME 472 sec TEST ED AT [place] [address] ([facility]) (test code = BREEZY [place] [facility] 441) [address] [id number] 14:04:00 Test Item Value Reference Range Interpretation Comments ACTIVATED CLOTTING TIME 505 sec TEST ED AT [place] [address] ([facility]) (test code = [place] [address]) [address] [id number] 14:04:00 Test Item Value Reference Range Interpretation Comments ACTIVATED CLOTTING TIME 543 sec TEST ED AT [place] [address] ([facility]) (test code = [place] [address]) [address] CALCIUM, [id number] 13:58:00 Test Item Value Reference Range Interpretation Comments CALCIUM IONIZED (BEAKER) (test 1.11 mmol/L 1.12-1.27 L code = 698) PH, BLOOD (BEAKER) (test code = 7.36 1810) BLOOD GAS, [id number] 13:56:00 Test Item Value Reference Range Interpretation [...] (test code = 1819) 100.0 % GLUCOSE-STAT [id number] 13:56:00 Test Item Value Reference Range Interpretation Comments GLUCOSE RANDOM (BEAKER) (test code 167 mg/dL 70-110 H = 652) HGB/HCT (H&H) - STAT [id number] 13:56:00 Test Item Value Reference Range Interpretation Comments HEMOGLOBIN (BEAKER) (test code = 10.8 g/dL 13.0-16.8 L 410) HEMATOCRIT (BEAKER) (test code = 32.0 % 40.0-50.0 L 411) SODIUM NA-STAT [id number] 13:55:00 Test Item Value Reference Range Interpretation Comments SODIUM (BEAKER) (test code = 381) 136 meq/L 135-148 POTASSIUM-STAT [id number] 13:55:00 Test Item Value Reference Range Interpretation Comments POTASSIUM (BEAKER) (test code = 3.8 meq/L 3.6-5.5 379) BLOOD GAS, [id number] 12:54:00 Test Item Value Reference Range Interpretation [...] code = 1819) 65.0 % SODIUM NA-STAT [id number] 12:54:00 Test Item Value Reference Range Interpretation Comments SODIUM (BEAKER) (test code = 381) 134 meq/L 135-148 L GLUCOSE-STAT [id number] 12:54:00 Test Item Value Reference Range Interpretation Comments GLUCOSE RANDOM (BEAKER) (test code 158 mg/dL 70-110 H = 652) HGB/HCT (H&H) - STAT [id number] 12:54:00 Test Item Value Reference Range Interpretation Comments HEMOGLOBIN (BEAKER) (test code = 8.8 g/dL 13.0-16.8 L 410) HEMATOCRIT (BEAKER) (test code = 26.0 % 40.0-50.0 L 411) POTASSIUM-STAT [id number] 12:53:00 Test Item Value Reference Range Interpretation Comments POTASSIUM (BEAKER) (test code = 4.1 meq/L 3.6-5.5 379) BLOOD GAS, [id number] 12:20:00 Test Item Value Reference Range Interpretation [...] code = 1819) 60.0 % SODIUM NA-STAT [id number] 12:20:00 Test Item Value Reference Range Interpretation Comments SODIUM (BEAKER) (test code = 381) 134 meq/L 135-148 L GLUCOSE-STAT [id number] 12:20:00 Test Item Value Reference Range Interpretation Comments GLUCOSE RANDOM (BEAKER) (test code 187 mg/dL 70-110 H = 652) HGB/HCT (H&H) - STAT [id number] 12:20:00 Test Item Value Reference Range Interpretation Comments HEMOGLOBIN (BEAKER) (test code = 10.0 g/dL 13.0-16.8 L 410) HEMATOCRIT (BEAKER) (test code = 29.0 % 40.0-50.0 L 411) BLOOD GAS, [id number] 12:20:00 Test Item Value Reference Range Interpretation [...] (test code = 1819) 60.0 % POTASSIUM-STAT [id number] 12:18:00 Test Item Value Reference Range Interpretation Comments POTASSIUM (GALE) (test code = 3.5 meq/L 3.6-5.5 L 379) U/S, RENAL WITH [id number] 08:35:00Reason for exam:->INCLUDE DOPPLERS AND PVR- for [...] Verified Date/Time: 11/14/2017 08:35:40 Reading Location: [facility] P006J Ultrasound Reading Room POCT-GLUCOSE [id number] 07:34:00 Test Item Value Reference Range Interpretation Comments POC-GLUCOSE METER 190 mg/dL 70-[address] [facility] 6720 (BEAKER) (test code = [place] 1538) [address] [id number] 05:19:00 Test Item Value Reference Range Interpretation Comments MAGNESIUM (BEAKER) (test code = 2.0 mg/dL 1.6-2.6 627) BASIC METABOLIC [id number] 05:19:00 Test Item Value Reference Range Interpretation [...] PATIEN TS. CBC W/PLT COUNT & AUTO [id number] 05:00:00 Test Item Value Reference Range Interpretation [...] 0-1 PERCENT (BEAKER) (test code = 2801) [id number] 01:56:00 Test Item Value Reference Range Interpretation Comments PARTIAL THROMBOPLASTIN TIME 69.0 seconds 22.5-36.0 H (BEAKER) (test code = 760) POCT-GLUCOSE [id number] 22:07:00 Test Item Value Reference Range Interpretation Comments POC-GLUCOSE METER 185 mg/dL 70-[address] [facility] 6720 (BEAKER) (test code = [place] 1538) [address] [id number] 18:43:00 Test Item Value Reference Range Interpretation Comments PARTIAL THROMBOPLASTIN TIME 45.2 seconds 22.5-36.0 H (BEAKER) (test code = 760) [id number] 16:12:00 Test Item Value Reference Range Interpretation Comments THYROID STIMULATING HORMONE 0.53 uIU/mL 0.35-4.94 (BEAKER) (test code = 772) RAD, CHEST, 1 VIEW, NON [id number] 15:33:00Reason for exam:->preopShould this be performed at the bedside?->YesFINAL REPORT EXAM: Frontal chest radiograph HISTORY PROVIDED: Preop COMPARISON:11/12/2017 IMPRESSION:No focal consolidation, pneumothorax, or significant pleural fluid. The cardiomediastinal silhouette is within normal limits. No acute osseous abnormality. Degenerative changes of the spine are present. Signed: Clayton Banegas Verified Date/Time: 11/13/2017 15:33:28 Reading Location: [facility] Mammo Reading Room 0 3:33 [id number] 15:06:00 Test Item Value Reference Range Interpretation Comments PARTIAL THROMBOPLASTIN TIME 51.6 seconds 22.5-36.0 H (BEAKER) (test code = 760) PROTHROMBIN [id number] 15:05:00 Test Item Value Reference Range Interpretation [...] INTERPRETATION (BEAKER) arachidonic acid (test code = 176467) suggests aspirin-like effect. [id number] Deven Mei MD (BEAKER) (test code = (electronic 9341) signature) PLATELET COUNT AGG 243 K/CU MM 150-450 (BEAKER) (test code = 2656) Platelet aggregation results may be falsely low with platelet counts<100,000/CU MM.CREATININE, RANDOM [id number] 06:28:00 Test Item Value Reference Range Interpretation Comments CREATININE URINE (BEAKER) (test 114.6 mg/dL code = 375) Reference Range: No NormalsPROTEIN, RANDOM [id number] 06:28:00 Test Item Value Reference Range Interpretation Comments PROTEIN, URINE (BEAKER) (test code = 30 mg/dL 0-14 H 1569) PH, [id number] 05:47:00 Test Item Value Reference Range Interpretation Comments PH VENOUS (BEAKER) (test code = 701) 7.40 7.32-7.42 VITAMIN D, [id number] 04:52:00 Test Item Value Reference Range Interpretation Comments VITAMIN D 25-OH (BEAKER) (test 36.5 ng/mL 6.6-49.9 code = 2764) Effective 02/13/2017: Reference Range ChangeNew: 6.6-49.9 ng/mL Previous: 13.0- 47.8 ng/mLRecommendedVitamin D Target Range: 30.0-40.0 ng/mLPTH, INTACT 2017-11-13 04:25:00 Test Item Value Reference Range Interpretation Comments PARATHYROID HORMONE INTACT 91.7 pg/mL 8.5-72.5 H (BEAKER) (test code = 577) [id number] 04:21:00 Test Item Value Reference Range Interpretation Comments PARTIAL THROMBOPLASTIN TIME 53.6 seconds 22.5-36.0 H (BEAKER) (test code = 760) URIC [id number] 04:20:00 Test Item Value Reference Range Interpretation Comments URIC ACID (BEAKER) (test code = 9.0 mg/dL 2.6-7.2 H 773) [id number] 04:20:00 Test Item Value Reference Range Interpretation Comments MAGNESIUM (BEAKER) (test code = 2.0 mg/dL 1.6-2.6 627) [id number] 04:20:00 Test Item Value Reference Range Interpretation Comments PHOSPHORUS (BEAKER) (test code = 3.1 mg/dL 2.3-4.7 604) BASIC METABOLIC [id number] 04:20:00 Test Item Value Reference Range Interpretation [...] PATIEN TS. CBC W/PLT COUNT & AUTO [id number] 04:06:00 Test Item Value Reference Range Interpretation [...] 0-1 PERCENT (BEAKER) (test code = 2801) [id number] 22:34:00 Test Item Value Reference Range Interpretation Comments PARTIAL THROMBOPLASTIN TIME 49.5 seconds 22.5-36.0 H (BEAKER) (test code = 760) POCT-GLUCOSE [id number] 21:55:00 Test Item Value Reference Range Interpretation Comments POC-GLUCOSE METER 179 mg/dL 70-[address] [facility] [address] ([facility]) (test code = [place] 1538) [id number] RAD, CHEST, 1 VIEW, NON [id number] 17:03:00Reason for exam:->sobShould this be performed at the bedside?->YesFINAL REPORT CHEST AP PORTABLE History provided: Shortness of breath Comparisonstudies: None Heart size normal. Lungs grossly clear and vascularity normal. IMPRESSION: Grossly clear chest. Signed: Rufino Cintron Verified Date/Time: 11/12/2017 17:03:31 Reading Location: [address] Radiology Reading Room [id number] 15:41:00 Test Item Value Reference Range Interpretation Comments PARTIAL THROMBOPLASTIN TIME 41.3 seconds 22.5-36.0 H ([facility]) (test code = 760) POCT-GLUCOSE [id number] 11:50:00 Test Item Value Reference Range Interpretation Comments POC-GLUCOSE METER 218 mg/dL 70-[address] [facility] [address] ([facility]) (test code = [place] 1538) [id number] PLATELET AGGREGATION: FUNCTION [id number] 10:14:00 Test Item Value Reference Range Interpretation Comments WEAK ADP 82 % 60-91 RESULT([facility]) (test code = 2135) PLATELET FUNCTION 60-100% indicates This is a corrected SCREEN INTERP normal platelet result. Pre vious ([facility]) (test function result was 50 -59% code = 2173) indicates mild platelet dysfunction on 11/11/2017 at 192 1 CDT [facility]-PATHOLOGIST- Deven Mei MD [id number] ([facility]) (electronic (test code = signature) 2622) PLATELET COUNT 283 K/CU MM 150-450 AGG ([facility]) (test code = 2656) TROPONIN [id number] 08:02:00 Test Item Value Reference Range Interpretation Comments TROPONIN I ([facility]) (test code = 17.70 ng/mL 0.00-0.03 397) [...] failure, acidosis, acute neurological disease, and persistent tachyarrhythmia.[id number] 07:55:00 Test Item Value Reference Range Interpretation Comments PARTIAL THROMBOPLASTIN TIME 42.7 seconds 22.5-36.0 H ([facility]) (test code = 760) [id number] 07:55:00 Test Item Value Reference Range Interpretation Comments MAGNESIUM ([facility]) (test code = 2.3 mg/dL 1.6-2.6 627) BASIC METABOLIC [id number] 07:55:00 Test Item Value Reference Range Interpretation [...] PATIEN TS. CBC W/PLT COUNT & AUTO [id number] 07:49:00 Test Item Value Reference Range Interpretation [...] PERCENT (BEAKER) (test code = 2801) POCT-GLUCOSE [id number] 07:33:00 Test Item Value Reference Range Interpretation Comments POC-GLUCOSE METER 159 mg/dL 70-[address] [facility] 6720 (BEAKER) (test code = [place] 1538) [address] [id number] 00:57:00 Test Item Value Reference Range Interpretation Comments PARTIAL THROMBOPLASTIN TIME 47.6 seconds 22.5-36.0 H (BEAKER) (test code = 760) [id number] 00:40:00 Test Item Value Reference Range Interpretation Comments MAGNESIUM (BEAKER) 2.3 mg/dL 1.6-2.6 Specimen slightly (test code = 627) hemolyzed BASIC METABOLIC [id number] 00:40:00 Test Item Value Reference Range Interpretation [...] NOT APPLICABLE FOR DIALYSIS PATIEN TS. POCT-GLUCOSE [id number] 21:57:00 Test Item Value Reference Range Interpretation Comments POC-GLUCOSE METER 162 mg/dL 70-[address] [facility] 6720 (BEAKER) (test code = [place] 1538) [address] HEMOGLOBIN [id number] 19:53:00 Test Item Value Reference Range Interpretation Comments HEMOGLOBIN A1C (BEAKER) (test code = 7.0 % 4.3-6.1 H 368) LIPID [id number] 18:10:00 Test Item Value Reference Range Interpretation [...] 130-159 High 160-189 Very High >=190BASIC METABOLIC [id number] 18:10:00 Test Item Value Reference Range Interpretation [...] APPLICABLE FOR DIALYSIS PATIEN TS. HEPATIC FUNCTION [id number] 18:10:00 Test Item Value Reference Range Interpretation [...] (test code = 24 U/L 6-55 347) [id number] 17:56:00 Test Item Value Reference Range Interpretation [...] mechanical heart valves.CBC W/PLT COUNT & AUTO [id number] 17:47:00 Test Item Value Reference Range Interpretation [...] PERCENT (BEAKER) (test code = 2801) POCT-GLUCOSE [id number] 16:49:00 Test Item Value Reference Range Interpretation Comments POC-GLUCOSE METER 128 mg/dL 70-[address] [facility] 6720 ([facility]) (test code = [facility] Isa [facility] 1538) [address] Notes Date/Time Note Provider Source 2021-09-15 10:11:00-00:00 [id number] [place] [address] PATIENT NAME: OLIVIA MONROY ADMIT DATE: ACCOUNT NO: [id number] ROOM NO: G.524 AGE: 70 REPORT TYPE: 360 - QUERY RESPONSE DOCUMENT SEX: M ADMITTING PHYSICIAN:Benedicto Ramos MD ATTENDING PHYSICIAN:Benedicto Ramos MD Provider Query QUERY TEXT: Clarification Infectious Status POA 360MD Query related questions should be directed to:[facility] [place] Query Helpline Based on your clinical judgment, can you provide the known or suspected condition(s) that represent(s) the clinical indicators listed below and if the condition(s) are present on admission (POA)? The following definitions are provided based on industry literature and in collaboration with [facility] for your reference only: --Localized Infection - An infection that affect s only one organ or body part (e.g., UTI, Pneumonia) --Bacteremia - Nonspecific laboratory finding of bacteria in the blood --Sepsis - A presumed or confirmed systemic resp onse to infectious process with >2 clinical indicators such as: Temperature >38.3C or <36.0C, tachycardia, > 20 respiratory rate, WBC >12,000 or < 4,000 or > 1 0% bands --Severe Sepsis - Sepsis with additional clinica l indicators such as Organ failure with any of th e following: systolic BP < 90 or MAP < 65 or SBP decrease more 40 mm Hg from last recorded SBP considered normal for patient, Creatinine > 2.0, urine output < 0.5 ml /kg/hour for 2 hours, Bilirubin > 2 mg/dL, platelet coun t < 100,000, INR > 1.5, PTT > 60 sec, lactate > 2 m mol/L --Septic Shock - Severe Sepsis with Lactic acid > 4 mmol/L or persistent hypotension The patient's Clinical Indicators include: RECORD 08/22/2021 (1) Laboratory Tests: -WBC (4. 5 - 11.0 x10 3/uL) 9.2 HISTORY and PHYSICAL 08/22/2021 ( 1) FINAL IMPRESSION: -Bilateral pneumonia HISTORY and PH YSICAL 08/22/2021 : Acute hypoxic respiratory failure. HISTORY and PHYSICAL 08/22/2021 (1) VITAL SIGNS: -Blood pressure 129/57, temperature 36.7 degrees centigrade, he art rate 74 per minute, respiratory rate 24 per minute, and oxygen saturation 100%. Internal Medicine Prog. Note 0 08/28/2021 (2) Problem List/A P: -Hypotension Admission/Sh ift Assessment + 08/24/2021 (1) Admission/Shift Ass essment +: -Sinus tachycardia Options provided: -- Sepsis, Please specify POA status (i.e., Y=Ye s, N=No, W=Unable to clinically determine) and causative organism if known. -- Severe Sepsis, Please specify POA status (i.e ., Y=Yes, N=No, W=Unable to clinically determine) and cau sative organism if known. -- Severe Sepsis with septic shock, Please speci fy POA status (i.e., Y=Yes, N=No, W=Unable to clinical ly determine) and causative organism if known. -- Localized infection, Please specify the infec tion and POA status (i.e., Y=Yes, N=No, W=Unable to clin ically determine). -- Other - I will add my own diagnosis -- Dismiss - Not applicable / Not valid -- Dismiss - Clinically unable to determine / Un known -- Assign to another provider QUERY RESPONSE: The patient has localized infection. Pneumonia Query created by: Kim Zhang on 09/08/2021 2:16 PM at 1011 PATIENT NAME: OLIVIA MONROY [id number] 2021-09-05 10:58:00-00:[address] [facility] Cardiology Progress Note REPORT#:[id number] REPORT STATUS: Signed DATE:09/05/21 TIME: 1058 PATIENT: OLIVIA MONROY UNIT #: [id number] ROOM/BED: [place] [address] : 48 AGE: 70 SEX: M ATTEND: Mykel Ramos MD ADM AUTHOR: Vinny Chou MD * ALL edits or amendments must be made on the [employer]/computer document * Subjective Chief complaint: SOB Free Text Subj Notes Free Text Subj Notes: Patient doing okay. States that he will be disch arging today. Denies chest pain or shortness of breath Objective General VS/I O: 24 hour I O ending at 0700: 09/05 0700 09/04 1900 Intake Total 400 Output Total 200 Balance 200 Intake, Oral 400 Number 1 Bowel Movements Number 1 Incontinent Voids Output, Urine 200 Vital Signs: Date Time Temp Pulse Resp B/P B/P Pulse O2 O2 F low FiO2 Mean Ox Delivery Rate 09/05 07 97.9 92 18 157/84 108.5 94 Room air 09/05 412 97.7 78 17 156/88 110.8 94 Nasal 2 cannula 09/04 2324 98.2 69 17 132/84 100.2 94 Nasal 2 cannula 09/05 1955 98.6 67 17 127/69 88.3 95 Nasal 2 cannula 09/04 1541 98.2 80 15 129/76 93.5 98 09/04 1121 98.1 88 15 133/71 91.5 100 PATIENT WEIGHT: Weight (lb): Weight (oz): Weight (kg): 118.800 Medications: Active Meds + DC'd Last 24 Hrs Torsemide (DEMADEX) 20 MG DAILY PO Glipizide (GLUCOTROL) 5 MG AC BK PO Carvedilol (COREG) 6.25 MG BID PO Potassium Chloride (POTASSIUM CHLORIDE 20MEQ TAB .ER) 20 MEQ DAILY PO Magnesium Oxide (MAG-OX 400) 400 MG BID PO Rivaroxaban (XARELTO 20MG) 20 MG DAILY 1700 PO Acetaminophen (TYLENOL) 325 MG Q4H PRN PRN PO Atorvastatin Calcium (LIPITOR) 40 MG 2100 PO Aripiprazole (ABILIFY) 30 MG DAILY PO Aspirin (ASPIRIN) 81 MG DAILY PO Bupropion HCl (WELLBUTRIN) 100 MG QAM PO Albuterol Sulfate (ALBUTEROL SULFATE) 1.25 MG RT Q4H PRN PRN NEB Physical Exam General appearance: alert, awake, no acute distr ess Head/Eyes: atraumatic, normal conjunctiva/sclera , normocephalic ENT: moist mucosal membranes, normal pharynx Neck: full range of motion, supple/no meningismu s Cardiovascular: CV assessment: ectopy, irregular rhythm, irregu larly irregular Murmur assessment: 2/6 sm Respiratory: decreased breath sounds, on oxygen, no distress Abdomen: soft, non-tender, no distention Upper extremity: UE assessment: normal temperature, no clubbing, no cyanosis Lower extremity: LE assessment: normal temperature, no clubbing, no cyanosis, no edema Musculoskeletal: full range of motion, normal in spection 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 Acute congestive heart failure 2. Coronary atherosclerosis with prior CABG and prior PCI 3. Accelerated hypertension 4. Adult failure to thrive - prior prolonged hos pitalization 5. Diabetes mellitus 6. Normocytic anemia 7. Paroxysmal afib 8. 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 We will g et echo. Place on IV lasix to diurese and use BIPAP as well. Serial troponin i s negative. This does not represent ACS situation but rather likely an acute HF exacerbation. He will need to be put on higher maintena nce dose at discharge. For now, we know that he has prior 3vCABG per report as pancho jewell as prior remote PCI. is a big proponent for [facility] system for cardiac care and only want s cardiologists who have privileges there. For now, pancho wise will give him IV lasix and get the echo to see if any new systolic dysfunction has occurre d. Further recommendations after that. Monitor on telemetry, appears to be at s inus rhythm on admission. Need to have RN reconcile medications. Ne ed to see what the HGb trends, compared to last year is significantly reduced, but has recent chronic prolonged hospitalization, likely component anemia of chronic disease. 08/23/2021 Awaiting echocardiogram. He has been receiving I V Lasix 80 mg twice daily. He received a dose of 80 in the afternoon y and another one just now this morning. Prior to that I believe that he received about 60 mg in the emergency department yesterday. Per nursing report they at tempted to put a condom catheter however several sizes did not f it adequately. Also per nursing he has urinated in the bed several times. Thus it is mallory rd to know how well he is urinating. Obtain chest x-ray tomorrow. He repor ts that his breathing status is improved overall. Still on significant oxygen . They report no recent PCI. They also report that the patient was on Xarelto . As such we will see about starting that and discontinuing either the aspir in or the Plavix. As such, we will also need to monitor that hemoglobin. 08/24/2021 The patient has LVEF in the upper 40's, wall motion indicative and suggestive of prior CABG and prior scarrin g in certain areas. In either case, volume status is improving. He is now on Xare lto - no Hgb yet this AM. Also no labs yet this AM. He is on IV lasix, oxygen sats improving and wejake otero down the oxygen. We will see if we can transition him to orals tomorrow. Plavix has been discontinued as well. Spoke with on the phone today to cristian barajas her [phone]. 08/25/2021 Some tachycardia on telemetry, oxygen requiremen ts improving, feeling better. Some hypertensive values. We will increase the beta mariaa dose. The xarelto is being tolerated. We will als o increase potassium and magnesium standing orders. On torsemide currently. Keisha huynh overall - may require dose adjustment downwards after several days if he is still diuresing nice ly on this oral regimen. 08/26/2021 Change metoprolol to carvedilol for improved blo od pressure control. We will see about giving him metolazone. Obtain electrol ytes. Obtain hemoglobin. Obtain magnesium. Continue to monitor. We will a lso get chest x-ray. Oxygen requirements improving yet still there. 08/27/2021 Patient is laying flat. On 6 L however nasal can nula is not quite in his nose and he is satting 100%. Chest x-ray is o verall improved. Still with little bit of volume. We will give another dose of metolazo ne today. Continue to monitor otherwise. Order electrolytes. 08/28/2021 Getting a little dry. Some borderline blood pres sure. Hold the beta-mariaa this morning. Give a little bit of fluid back. D rop the torsemide to daily starting day after tomorrow if recovering nicely. Stop metolazone, has not been given yesterday or today due to borderline blood pressure. Hold the ARB and beta-mariaa for parameters. 08/29/2021 Creatinine at 1.6 today, 1.5 yesterday, but BUN less than yesterday. Given some fluids yesterday, likely cony teau effect, expect lowering tomorrow hopefully. BP more robust now compared to yesterday after given some fluid back, HR around 100 or less, afib. Give diuretic holiday today. Preliminary schedule torsemide 40 mg once daily to resume tomorrow. Resume the beta b locker. Continue to keep the losartan 100 mg held until the creatinine downtr ends for 2 days. If he discharges, needs a creatinine check within next few days at next facility he goes to. 08/30/2021 Creatinine much improved. Vitals good. HR contro l. On lower dose maintenance torsemide. Diuresed well. Ov cj doing much better. Losartan held. From cardiac standpoint, he is ready to move on from the [facility] setting. Overall better today. 08/31/2021 His overall fluid and volume status is tricky. Again creatinine is up. Will hold today diuretic, yesterday he was resumed on lower total dose of only torsemide 40 mg once daily from BID. Will change the maint enance diuretic down to torsemide 20 mg daily but give him diuretic holi day today with a bit of fluid back today. 09/01/2021 Patient looks good. Creatinine is down. Continue to monitor otherwise. Stable from the cardiac perspective for disposition. Aw aiting financial aspects with insurance. Continue to monitor hemodynamics and volume status. 09/02/2021 Patient is awaiting rehabilitation. Continue to monitor otherwise. Refused some labs. Need to monitor the creatinine. 09/03/2021 Patient is doing well. Diuretic in place . Discussed with him about getting lab work to monitor the renal function and t he potassium. He was agreeable. I will put the order in. If creatinine is little bit up , then we will need to see if we need to do a every other day diuretic. In eit her case, monitor for now. 09/04/2021 CR is stable at 1.1. Will continue with demadex 20mg daily. K was good. Continue supplemental K with the diuretic. Bp's are good. On xarelto for AFIB and rates are controlled. CV status appears stab le. Continue to monitor for now. 09/05/2021 Patient is being discharged to the [facility] for rehabilitation. As such, he is okay to discharge from the cardiac perspectiv e. Continue maintenance diuretic. Recommend that they obtain electrolyte s while he is there. Continue to monitor overall. Okay to stable for discharge . Electronically Signed by Vinny Chou MD on at 1059 RPT #:[id number] END OF REPORT 2021-09-05 09:15:00-00:[address] [facility] Rehab Progress Note REPORT#:[id number] REPORT STATUS: Signed DATE:09/05/21 TIME: 914 PATIENT: OLIVIA MONROY UNIT #: [id number] ROOM/BED: [place] [address] : 48 AGE: 70 SEX: M ATTEND: Mykel Ramos is A MD ADM AUTHOR: Bassam Mccullough MD * ALL edits or amendments must be made on the el [employer]/computer document * Subjective Chief complaint: Rehab follow-up NAD Patient on 2 L nasal cannula Motivated Very weak Denies MALLORY/N/V/D/CP 14 systems reviewed and neg. except that above. Patient reports: No: shortness of breath, vomiting, constipation. Nursing reports: No: new events overnight. Objective General VS: Vital Signs: Date Time Temp Pulse Resp B/P B/P Pulse O2 O2 F low FiO2 Mean Ox Delivery Rate 09/05 0708 97.9 92 18 157/84 108.5 94 Room air 09/05 0413 97.7 78 17 156/88 110.8 94 Nasal 2 cannula 09/04 2325 98.2 69 17 132/84 100.2 94 Nasal 2 cannula 09/04 1956 98.6 67 17 127/69 88.3 95 Nasal 2 cannula 09/04 1541 98.2 80 15 129/76 93.5 98 09/04 1121 98.1 88 15 133/71 91.5 100 PATIENT WEIGHT: Weight (lb): Weight (oz): Weight (kg): 118.800 Medications: Active Meds + DC'd Last 24 Hrs Torsemide (DEMADEX) 20 MG DAILY PO Glipizide (GLUCOTROL) 5 MG AC BK PO Carvedilol (COREG) 6.25 MG BID PO Potassium Chloride (POTASSIUM CHLORIDE 20MEQ TAB .ER) 20 MEQ DAILY PO Magnesium Oxide (MAG-OX 400) 400 MG BID PO Rivaroxaban (XARELTO 20MG) 20 MG DAILY 1700 PO Acetaminophen (TYLENOL) 325 MG Q4H PRN PRN PO Atorvastatin Calcium (LIPITOR) 40 MG 2100 PO Aripiprazole (ABILIFY) 30 MG DAILY PO Aspirin (ASPIRIN) 81 MG DAILY PO Bupropion HCl (WELLBUTRIN) 100 MG QAM PO Albuterol Sulfate (ALBUTEROL SULFATE) 1.25 MG RT Q4H PRN PRN NEB Nutrition assessment: BMI-32.7 Functional Progress Functional progress: PT COMMENT 1. One on one supervision with cueing and anali tance provided to ensure proper performance of all activities. Yes Precautions: Fall CONTACT MRSA NARES Safety addressed through use of: Verbal Cues Tactile Cues Weightbearing Restrictions: No Restriction ACTIVITIES PERFORMED: Bed Mobility - Rolling: Modified Ogle Bed Mobility - Supine to Sit: Minimal Assistanc e Bed Mobility - Sit to Supine: Supervision or Se t-up Scooting: Minimal Assistance Pivot Transfer: Dependent Sliding Board Transfer: Not Tested Trunk control: Minimal Assistance Sit to Stand: Dependent Static Sitting: Modified Ogle Dynamic Sitting: Supervision or Set-up Static Standing: Maximal Assistance Dynamic Standing: Dependent Functional Ambulation: Not Tested Functional Exercises: AROM EXS TO BLE IN SITTING Durable Medical Equipment Currently Utilized: Hospital Bed RW Effects of Treatment: Tolerance increased Balance Improved [place] of care decreased Cardio tolerance improved Circulation improved Edema diminished Function Improved Post TX Precautions: In Bed, rails Up Bed Alarm Control Specialist Light in Reach Document Pain/Education: No Review Plan of Care: No Functional Mob.Cmt: RN CLEARED THE PATIENT FOR PT TREATMENT,PATIENT AND AGREED.PATIENT'S IS ALWAYS FORCIN G HIM TO PERFORM EVEN THOUGH PATIENT IS FATIGUED OR TIRED.PATIENT WAS ON 2L O2 WITH 100% SATN AND WE TRY WITHOUT O2 SUPPLY AND HIS SATN IS 98%.RN REMOVED THE O2 SUPPLY.PATIENT PERFORMED SIT <> STD TRANSFER WITH 2PERSON TOTAL ASST COUPLE OF TIME S WITH REST BREAKS IN BETWEEN.PATIENT IS BUCKLING HIS KNEES AND C/O PAIN 6/10 ON HIS RT KNEE WHIL E STANDING UP.CHAIR > BED STAND PIVOT TRANSFER WITH RW TOTAL ASST 2-3 PERSON.RN AND NURSE TECH HELPED 2ND AND 3RD PERSON.PATIENT GET FATIGUED AND REMAIN IN BED.PATIENT'S IS NOT READY TO LISTEN PHYSICAL THERAPIST OYSTER CULLER.SHE IS ALWAYS FORCING HER .CALL LIGHT AND PHONE IN REACH. OT COMMENT 1. One on one supervision with cueing and anali tance provided to ensure proper performance of all activities: Yes Precautions: Fall Safety addressed through use of: Gait Belt Verbal Cues Tactile Cues Observed precautions for: Falls ACTIVITIES PERFORMED: Supine to/from sitting: Maximal Assistance Sit to Stand: Minimal Assistance Pivot Transfer: Minimal Assistance Bed to/from chair: Minimal Assistance Functional Exercises: UE Mobility UE Strengthening Deep Sequential Breathing Activities Performed Cmt: SUPINE <> SIT EOB MAX A SIT <> STAND RW: MIN A EOB <> RECLINER: MIN A WITH RW REST BREAKS NECESSARY THROUGHOUT EACH TRANSITI ON 06/07 WEAKNESS/DECONDITIONING Assistive Device Used: HOSPITAL BED Staff Support RW Balance: Fair Safety Awareness: Fair Effects of Treatment: Cardio tolerance improved Circulation improved Function improved Impro. postural alignment Comments: PRESENT END OF SESSION REQUESTING THERAPIST TO SPEAK WITH [facility] ON PHONE TO GIVE UPDATE ON PT STATUS- THERAPIST AGREED. PT REPEATEDLY QUESTIONING WHY OT WAS ON CASELOAD- PT/PT'S EDUCATED ON OT NECESSITY STATING PT CONTINUES TO REQUIRE AMPLE ADL ASSISTANCE WITH TOILETING/DRESSING/GROOMI NG/ETC. PT ASKED "DO YOU LIKE THAT IM OOB AND IN THE CHAIR?" STATED "YES, BUT I COULD HAVE GOTTEN YOU THERE MYSELF". PT/PT'S PROVIDED WITH AMPLE EDUCATION ON THERAPEUTIC NECESSITY OF WORKING WITH OT/PT, SAFETY PRECAUTIONS, FALL PRECAUTIONS, AND ENERGY CONSERVATION TECHNIQUES. END OF SESSION PT LEFT UP IN RECLINER WITH ALL NEEDS MET AND CALL LIGHT IN REACH. RN/CHARGE NOTIFIED OF PT STATUS END OF SESSION. Physical Exam General appearance: alert, awake, oriented Psych: alert, normal affect HEENT: anicteric, sclera clear Neck: supple, no JVD Cardiovascular: regular rate rhythm, S1/S2, no m urmur Respiratory: diminished breath sounds Abdomen: bowel sounds present, non-distended, so ft Skin: intact, no rash Musculoskeletal - general: Musculoskeletal - general: joints normal, andre l muscle mass Neuro/STAFF SUBMARINE WARFARE OFFICER: alert, oriented X 3, CNII-XII intact Results Findings/Data: Laboratory Tests: 09/05 09/04 0415 1121 Chemistry Albumin (3.4 - 5.0 g/dL) 3.00 L Prealbumin (16.0 - 40.0 mg/dL) 10.9 L Serology SARS-CoV-2 Ag (Rapid) (Negative) Negative Objective Comments Objective comments: Chemistry: 09/03 1519 Chemistry Creatinine (0.6 - 1.3 mg/dL) 1.1 09/05 0700 09/04 2300 09/04 1500 Intake Total 400 Output Total 200 Balance 200 Intake, Oral 400 Number 1 Bowel Movements Number 1 Incontinent Voids Output, Urine 200 Diagnosis, Assessment Plan Free Text A P: Assessment: Adult failure to thrive-prior prolonged hospital ization Acute hypercapnic and hypoxi c respiratory failure secondary to CHF exacerbation, impyy-nm-hiltswo diastolic dysfunction. Generalized weakness Deconditioning Morbid obesity, body mass index 32.7 Impaired mobility and gait Acute respiratory failure with hypoxia Paroxysmal atrial fibrillation Acute on chronic systolic CHF ECHO showed EF 45 to 50% and PAP 57.19 mmHg, mod erate TR and [place]. Coronary atherosclerosis with prior CABG and kristen or PCI Uncontrolled diabetes type 2 CKD stage III Accelerated hypertension Normocytic anemia IVCD LBBB Plan: Continue PT/OT Out of bed to chair Work on strength, bed mobility, transfers, gait Increase endurance Fall precautions DVT prophylaxis-patient on Xarelto for PAF and C HF CR is stable at 1.1. Will continue with demadex 20mg daily. K was good. Continue supplemental K with the diuretic. Bp's are good. On xarelto for AFIB and rates are controlled. CV status appears stab le. Continue to monitor for now as per cardio Labs reviewed: WBC normal, h emoglobin 8.4, platelets normal, BUN 23, creatinine 1.1, glucose 187, magnesium 1.93 Monitor p.o. intake and nutrition, check albumin and prealbumin, dietary consultation, protein supple ments promote healing-patient on Glucerna shake and [place] protein powder Strict decubitus precautions [facility] level rehab. They did amber rove SNF level rehab. is refusing SNF Patient states none of the SNFs are close to his house. All of them are up in [place]. Pt. asked to stay in the hospital for rehab I explained to him this that SNF is his best sandy nce to get to therapy. He needs to stand and walk better Advance therapies as tolerable Patient making slow progress, tolerating therape utic exercises We will continue to follow patient make further recommendations as per the hospital course. Patient accepted [facility] for [facility] rehab-caity walker soon Patient Progress-PATIENT IN BED UPON ARRIVAL AND REQUIRED MODERATE COAXING TO PARTICIPATE IN THERAPY. PATIENT MIN A FOR ROLLING LEFT AND MAX A FOR SUPINE TO SIT. PATIENT REPORTS OF DIZZYNESS UPON SITTING BUT ABLE TO CONTINUE. PATIENT TOLERATED SEATED EXERCISE X 20 IN ALL AVAILABLE PLANES. PATIENT REPORTS OF STOMACH PAIN AND DECLINED SIT TO ST AND TRANSFER. PATIENT PLACED BACK IN BED WITH MOD A FOR NICKIE LE ASSISTANCE. Washing hands/face: Supervision or Set-up Oral Hygiene: Supervision or Set-up Combing/brushing hair: Supervision or Set-up Shaving face: Moderate Assistance Total time was 34 minutes > 50% with patient per forming physical examination, discussing plan of care, goals, therapies, progr ess, medications, labs, [facility] excepted the patient for rehab, patient's need. EMR and MAR's were reviewed. All questions answered Consultants: cardiology Plan discussed with: patient, nurse Rehab attestation: . at 1346 RPT #:[id number] END OF REPORT 2021-09-05 08:05:00-00:[address] [facility] Pulmonology Progress Note REPORT#:[id number] REPORT STATUS: Signed DATE:09/05/21 TIME: 804 PATIENT: OLIVIA MONROY UNIT #: [id number] ROOM/BED: [place] [address] : 48 AGE: 70 SEX: M ATTEND: Mary Ramos MD ADM AUTHOR: Seamus Patel REGULATORY COMPLIANCE DIRECTOR * ALL edits or amendments must be made on the [employer]/computer document * Seamus Patel 09/05/21 0805: Subjective Chief complaint: He is on 2 liter NC. Breathing is stable. No CP, fever, chills. No N/v/D. BP and HR stable. Review of Systems ROS Constitutional: fatigue, generalized weakness. Skin: Denies: bruising, diaphoresis, ecchymosis, itchi ng. Eyes: Denies: discharge, visual loss/blurred, diplopia , eye pain. Respiratory: Reports: CHRISTENSEN (dyspnea on exertion), SOB. Cardiovascular: Denies: edema, orthopnea, palpitations. GI: Denies: abdominal pain, constipation, diarrhea, GERD, hiatal hernia. : Denies: dysuria, flank pain, hematuria, penile d ischarge, penile lesion, testicular pain. Musculoskeletal: Denies: extremity swelling, joint swelling, lumb ar pain, myalgias. Endocrine: Denies: polydipsia, polyphagia, polyuria. Neuro: Denies: bowel dysfunction, c hange in LOC, confusion, dizziness, focal weakness, gait problem, numbness. Objective General VS/I O: Last Documented: Result Date Time Pulse Ox 94 09/06 707 B/P 157/84 09/06 707 B/P Mean 108.5 09/06 707 O2 Delivery Room air 09/06 707 Temp 36.6 09/06 707 Pulse 92 09/06 707 Resp 18 09/06 707 O2 Flow Rate 2 09/05 0413 FiO2 40 08/29 2106 24 hour I O ending at 0700: 09/05 0700 09/04 1900 Intake Total 400 Output Total 200 Balance 200 Intake, Oral 400 Number 1 Bowel Movements Number 1 Incontinent Voids Output, Urine 200 PATIENT WEIGHT: Weight (lb): Weight (oz): Weight (kg): 118.800 Medications: Active Meds + DC'd Last 24 Hrs Torsemide (DEMADEX) 20 MG DAILY PO Glipizide (GLUCOTROL) 5 MG AC BK PO Carvedilol (COREG) 6.25 MG BID PO Potassium Chloride (POTASSIUM CHLORIDE 20MEQ TAB .ER) 20 MEQ DAILY PO Magnesium Oxide (MAG-OX 400) 400 MG BID PO Rivaroxaban (XARELTO 20MG) 20 MG DAILY 1700 PO Acetaminophen (TYLENOL) 325 MG Q4H PRN PRN PO Atorvastatin Calcium (LIPITOR) 40 MG 2100 PO Aripiprazole (ABILIFY) 30 MG DAILY PO Aspirin (ASPIRIN) 81 MG DAILY PO Bupropion HCl (WELLBUTRIN) 100 MG QAM PO Albuterol Sulfate (ALBUTEROL SULFATE) 1.25 MG RT Q4H PRN PRN NEB Nutrition assessment: The data set between the solid lines has been im ported from the dietitian's assessment. Any exceptions have been noted under Provider comments. BMI Calculated: 32.7 Nutrition related diagnosis: Nutrition diagnosis details: Nutrition problem: Increased nutrient needs Nutrition etiology: Wound healing Nutrition signs and symptoms: Stage 2 sacrum Nutrition prescription: 1. C ONTINUE DIABETIC DIET TOLERATED. 2. ENCOURAGE PO INTAKE AND HONOR FOOD PREFERANCES. 3. PROVIDE GL UCERNA BID AND WILTON BID TO SUPPLEMENT MEALS AND AID IN WOUND HEALING. Dietitian name: TOD Mcneal Assessment completed: 08/31/21 Provider comments on imported dietitian assessme nt: Physical Exam General appearance: obese, respiratory support, alert, awake, oriented Head/eyes: atraumatic, PERRLA Cardiovascular: normal heart sounds, normal S1/S 2 Respiratory/chest: on oxygen, respiratory distre ss, tachypneic Abdomen: soft, non-tender, no CVA tenderness Genitourinary: no bladder distention, no flank p ain Extremities: no clubbing, no cyanosis, no edema Musculoskeletal: no muscle spasm Neuro/STAFF SUBMARINE WARFARE OFFICER: alert, oriented X 3 Results Findings/Data: Laboratory Tests 09/04 1121 Chemistry Albumin (3.4 - 5.0 g/dL) 3.00 L Prealbumin (16.0 - 40.0 mg/dL) 10.9 L Laboratory Tests 09/05 0415 Serology SARS-CoV-2 Ag (Rapid) (Negative) Negative Results: labs reviewed, vital signs reviewed, cu rrent med profile rev'd Treatment Prophylaxis Treatment Prophylaxis Oxygen: CPAP/BIPAP, nasal cannula Diagnosis, Assessment Plan Hospital course to date: ASSESSMENT: - Acute hypercapnic and hypoxic respiratory fail ure secondary to CHF exacerbation, xkzre-xn-hiepsqx diastolic dysfunc tion. - Acute congestive heart failure exacerbation, a kdzn-ft-umcglcf. - Hypokalemia.replaced. - VIANNEY. - History of hypertension. - History of hyperlipidemia. - History of atrial fibrillation. - Diabetes type 2. - History of coronary artery disease status post coronary artery bypass graft and percutaneous coronary intervention. - Morbid obesity, body mass index 32.7. - ECHO showed EF 45 to 50% and PAP 57.19 mmHg, m oderate TR and [place]. PLAN: Floor. Will be DC to rehab today. He is breathing better on 2 liter NC. Patient is stable from Pulmaonry stand point. Continue to monitor respirat ory status, breathing treatment, oxygen support, and wean the oxygen slowly. Lasix per pay clerk. Follow labs and replace as needed. SCD for DVT prophylaxis. Continue home medication. Glycemic control, Accu-Chek a.c. and at bedtime, sliding scale. Monitor. Consultants: cardiology Code status: full code Plan discussed with: patient, admitting physicbernie calhoun, consultants, nurse Ava Abarca 09/05/21 2107: Attestations Physician Attestation Agree w/findings plan: Patient seen and examined, c linical data reviewed and I agree with the findings and plan as discussed with and documented by Edwin Patel NP Electronically Signed by Seamus Patel NP on 07/25 at 0806 Electronically Signed by Ava Abarca MD on 0 09/05/21 at 2109 [facility] #:[id number] END OF REPORT 2021-09-04 14:56:00-00:00 [id number] [place] [address] PATIENT NAME: OLIVIA MONROY ADMIT DATE: ACCOUNT NO: [id number] ROOM NO: AGE: 70 REPORT TYPE: DISCHARGE SUMMARY SEX: M ADMITTING PHYSICIAN: ATTENDING PHYSICIAN:Isabel Primary or Family Edward jean ADMISSION DATE: 08/29/2021 DISCHARGE DATE: HOSPITAL COURSE: The patient is a 70-year-old ma le with past medical history positive for chronic systolic congestive heart f ailure, atrial fibrillation, sleep apnea, diabetes mellit us with diabetic nephropathy, chronic renal failure stage III secondary to diabetes mellitus . Coronary artery disease. The patient came from [facility] where he was found to have shortness of breath secondary to acute exacerbation of chronic systo lic congestive heart failure. The patient was started on IV diuretics. The pat ient is doing much better. He was switched to p.o. furosemide after he was placed on hold on diuretics for a few days because of acute renal failure. The patient is awaiting transfer to the [place] rehab facility. PHYSICAL EXAMINATION: HEART: Showed regular rhythm. Normal S1, S2 soun ds. LUNGS: Clear bilaterally. ABDOMEN: Soft. EXTREMITIES: Showed no edema. VITAL SIGNS: Blood pressure 133/71, temperature is 36.7, heart rate 88 per minute, respiratory rate 15 per minute, and oxyg en saturation 100%. LABORATORY DATA: On the blood work, we have albu min 3.0, prealbumin 10.9, glucose 110. Sodium 144, potassium 4.1, chloride 107, CO2 of 34, BUN 23, creatinine 1.1, calcium 10.1, magnesium 1.93, an d glucose 96. On the CBC; white blood count 9.0, hemoglobin 8. 4, hematocrit 28.1, platelet count 258,000. On the chest x-ray, we have ulhf-cw-hkpnmomg pulmonary edema versus infiltrates improvement. Mild enlarged cardiac silhouette. History of negative postsurgical changes are dem onstrated as described above. He was on the August 26 before starting diureti cs. FINAL IMPRESSION: 1. Crcqh-oa-lormsgn systolic congestive heart fa ilure. 2. Hypertension. 3. Uncontrolled diabetes mellitus type 2 with di abetic nephropathy. 4. Ltaeu-fm-jmrddhb renal fa ilure, stage III secondary to diabetic nephropathy. PATIENT NAME: OLIVIA MONROY [id number] 5. Coronary artery disease. 6. Acute hypoxic hypercarbic respiratory failure . PLAN OF TREATMENT: The patient will go t o the rehab at the [place]. He is medically stable right now. He is on torsemide 20 mg daily , glipizide 5 mg at bedtime, carvedilol 6.25 mg twice a d ay, potassium chloride 20 mEq daily, magnesium oxide 400 mg twice a day, Xarelto 20 mg daily. Continue Tylenol 325 mg q. 4 hours as needed for pain or fever, Li pitor 40 mg daily, bupropion 100 mg q.a.m., aspirin 81 mg daily, Abilify 30 mg daily, albute rol 1 unit via nebulizer q. 4 hours as needed for shortness of breath. Diet is going to be renal diabetic diet. Dictated By: Benedicto Ramos MD WT: DS:EUSEBIO/TESFAYE/SARINA Conf#: [id number]/DID#: [id number] Authenticated by Benedicto Ramos MD On 09/16/19 10:13:38 AM at 1013 PATIENT NAME: OLIVIA MONROY [id number] 2021-09-04 09:34:00-00:00 [facility]) Pulmonology Progress Note REPORT#:[id number] REPORT STATUS: Signed DATE:09/04/21 TIME: 933 PATIENT: OLIVIA MONROY UNIT #: [id number] ROOM/BED: [place] [address] : 48 AGE: 70 SEX: M ATTEND: Mykel Ramos is A MD ADM AUTHOR: Seamus Patel REGULATORY COMPLIANCE DIRECTOR * ALL edits or amendments must be made on the [employer] document * Seamus Patel 09/04/21 0934: Subjective Chief complaint: He refused Rehab. Breathing is stable. No CP, fever, chills. No N/v/D. BP and HR stable. Review of Systems ROS Constitutional: fatigue, generalized weakness. Eyes: Denies: discharge, visual loss/blurred, diplopia , eye pain. Respiratory: Reports: CHRISTENSEN (dyspnea on exertion), SOB. Cardiovascular: Denies: edema, orthopnea, palpitations. GI: Denies: abdominal pain, constipation, diarrhea, GERD, hiatal hernia. : Denies: dysuria, flank pain, hematuria, penile d ischarge, penile lesion, testicular pain. Musculoskeletal: Denies: extremity swelling, joint swelling, lumb ar pain, myalgias. Endocrine: Denies: polydipsia, polyphagia, polyuria. Neuro: Denies: bowel dysfunction, c hange in LOC, confusion, dizziness, focal weakness, gait problem, numbness. Objective General VS/I O: Last Documented: Result Date Time Pulse Ox 98 09/04 638 B/P 125/74 09/04 638 B/P Mean 91.2 09/04 638 Temp 36.8 09/04 638 Pulse 103 09/04 638 Resp 14 09/04 638 O2 Delivery Nasal cannula 09/04 314 O2 Flow Rate 2 09/04 314 FiO2 40 08/29 2105 24 hour I O ending at 0700: 05/02 0700 05 1900 Intake Total Output Total Balance Number 1 Bowel Movements PATIENT WEIGHT: Weight (lb): Weight (oz): Weight (kg): 118.800 Medications: Active Meds + DC'd Last 24 Hrs Torsemide (DEMADEX) 20 MG DAILY PO Glipizide (GLUCOTROL) 5 MG AC BK PO Carvedilol (COREG) 6.25 MG BID PO Potassium Chloride (POTASSIUM CHLORIDE 20MEQ TAB .ER) 20 MEQ DAILY PO Magnesium Oxide (MAG-OX 400) 400 MG BID PO Rivaroxaban (XARELTO 20MG) 20 MG DAILY 1700 PO Acetaminophen (TYLENOL) 325 MG Q4H PRN PRN PO Atorvastatin Calcium (LIPITOR) 40 MG 2100 PO Aripiprazole (ABILIFY) 30 MG DAILY PO Aspirin (ASPIRIN) 81 MG DAILY PO Bupropion HCl (WELLBUTRIN) 100 MG QAM PO Albuterol Sulfate (ALBUTEROL SULFATE) 1.25 MG RT Q4H PRN PRN NEB Nutrition assessment: The data set between the solid lines has been im ported from the dietitian's assessment. Any exceptions have been noted under Provider comments. BMI Calculated: 32.7 Nutrition related diagnosis: Nutrition diagnosis details: Nutrition problem: Increased nutrient needs Nutrition etiology: Wound healing Nutrition signs and symptoms: Stage 2 sacrum Nutrition prescription: 1. C ONTINUE DIABETIC DIET TOLERATED. 2. ENCOURAGE PO INTAKE AND HONOR FOOD PREFERANCES. 3. PROVIDE GL UCERNA BID AND WILTON BID TO SUPPLEMENT MEALS AND AID IN WOUND HEALING. Dietitian name: TOD Mcneal Assessment completed: 08/31/21 Provider comments on imported dietitian assessme nt: Physical Exam General appearance: obese, respiratory support, alert, awake, oriented Head/eyes: atraumatic, PERRLA Cardiovascular: normal heart sounds, normal S1/S 2 Respiratory/chest: on oxygen, respiratory distre ss, tachypneic Abdomen: soft, non-tender, no CVA tenderness Genitourinary: no bladder distention, no flank p ain Extremities: no clubbing, no cyanosis, no edema Musculoskeletal: no muscle spasm Neuro/STAFF SUBMARINE WARF[employer] OFFICER: alert, oriented X 3 Results Findings/Data: Laboratory Tests 09/03/21 1519: [Embedded Image Not Available] Laboratory Tests 09/04 09/03 09/03 09/03 09/03 0635 1945 1534 1519 1100 Chemistry Sodium (134 - 147 mEq/L) 144 Potassium (3.4 - 5.0 mEq/L) 4.1 Chloride (100 - 108 mEq/L) 107 Carbon Dioxide (21 - 33 mEq/l) 34 H Anion Gap (0 - 20) 7 BUN (7 - 18 mg/dL) 23 H Creatinine (0.6 - 1.3 mg/dL) 1.1 Glomerular Filtr Rate (70 - 80) 65.8 L Glucose (70 - 110 mg/dL) 96 POC Glucose (70 - 110 MG/DL) 110 186 H 90 147 H Calcium (8.0 - 10.5 mg/dL) 10.1 Magnesium (1.80 - 2.40 mg/dL) 1.93 Results: labs reviewed, vital signs reviewed, cu rrent med profile rev'd Treatment Prophylaxis Treatment Prophylaxis Oxygen: CPAP/BIPAP, nasal cannula Diagnosis, Assessment Plan Hospital course to date: ASSESSMENT: - Acute hypercapnic and hypoxic respiratory fail ure secondary to CHF exacerbation, jbmwq-kv-daxogfw diastolic dysfunc tion. - Acute congestive heart failure exacerbation, a rsyh-wk-ukcznxr. - Hypokalemia.replaced. - VIANNEY. - History of hypertension. - History of hyperlipidemia. - History of atrial fibrillation. - Diabetes type 2. - History of coronary artery disease status post coronary artery bypass graft and percutaneous coronary intervention. - Morbid obesity, body mass index 32.7. - ECHO showed EF 45 to 50% and PAP 57.19 mmHg, m oderate TR and [place]. PLAN: Floor. He refused PT, Refused Rehab. He is breathing better on 2 liter NC. Patient is stable from Pulmaonry stand point. Continue to monitor respirat ory status, breathing treatment, oxygen support, and wean the oxygen slowly. Lasix per pay clerk. Follow labs and replace as needed. SCD for DVT prophylaxis. Continue home medication. Glycemic control, Accu-Chek a.c. and at bedtime, sliding scale. Monitor. Consultants: cardiology Code status: full code Plan discussed with: patient, admitting physicia n, consultants, nurse Ava Abarca 09/05/21 2107: Attestations Physician Attestation Agree w/findings plan: Patient seen and examined, c linical data reviewed and I agree with the findings and plan as discussed with and documented by Edwin Patel NP Electronically Signed by Seamus Patel NP on 06/27 at 0957 Electronically Signed by Ava Abarca MD on 0 09/05/21 at 2108 RPT #:[id number] END OF REPORT 2021-09-04 08:06:00-00:[address] [facility] Cardiology Progress Note REPORT#:[id number] REPORT STATUS: Signed DATE:09/04/21 TIME: 805 PATIENT: OLIVIA MONROY UNIT #: [id number] ROOM/BED: [place] [address] : 48 AGE: 70 SEX: M ATTEND: Mykel Ramos A MD ADM AUTHOR: Gisela Antunez * ALL edits or amendments must be made on the [employer]/computer document * Subjective Chief complaint: SOB Patient reports: No: chest pain, shortness of breath. Free Text Subj Notes Free Text Subj Notes: Patient reports feeling well. Denies any acute c omplaints. Objective General VS/I O: 24 hour I O ending at 0700: 09/04 0700 09/03 1900 Intake Total Output Total Balance Number 1 Bowel Movements Vital Signs: Date Time Temp Pulse Resp B/P B/P Pulse O2 O2 F low FiO2 Mean Ox Delivery Rate 09/04 0639 36.8 103 14 125/74 91.2 98 09/04 0315 36.6 102 18 133/76 95.1 93 Nasal 2 cannula 09/04 0029 Nasal 2 cannula 09/03 2350 36.4 69 17 125/77 93.0 95 Nasal 2 cannula 09/03 1946 36.5 59 17 146/74 98.4 99 Nasal 4 cannula 09/03 1537 36.8 80 15 123/72 89.1 94 09/03 1527 98 Nasal 2 cannula 09/03 1101 36.6 59 15 116/71 85.9 100 09/03 0900 Nasal 4 cannula PATIENT WEIGHT: Weight (lb): Weight (oz): Weight (kg): 118.800 Medications: Active Meds + DC'd Last 24 Hrs Torsemide (DEMADEX) 20 MG DAILY PO Glipizide (GLUCOTROL) 5 MG AC BK PO Carvedilol (COREG) 6.25 MG BID PO Potassium Chloride (POTASSIUM CHLORIDE 20MEQ TAB .ER) 20 MEQ DAILY PO Magnesium Oxide (MAG-OX 400) 400 MG BID PO Rivaroxaban (XARELTO 20MG) 20 MG DAILY 1700 PO Acetaminophen (TYLENOL) 325 MG Q4H PRN PRN PO Atorvastatin Calcium (LIPITOR) 40 MG 2100 PO Aripiprazole (ABILIFY) 30 MG DAILY PO Aspirin (ASPIRIN) 81 MG DAILY PO Bupropion HCl (WELLBUTRIN) 100 MG QAM PO Albuterol Sulfate (ALBUTEROL SULFATE) 1.25 MG RT Q4H PRN PRN NEB Physical Exam General appearance: alert, awake, oriented Head/Eyes: atraumatic, normal conjunctiva/sclera , normocephalic ENT: moist mucosal membranes, normal pharynx Neck: full range of motion, supple/no meningismu s Cardiovascular: CV assessment: ectopy, irregular rhythm, irregu larly irregular Murmur assessment: 2/6 sm Respiratory: decreased breath sounds, on oxygen, no distress Abdomen: soft, non-tender, no distention Upper extremity: UE assessment: normal temperature, no clubbing, no cyanosis Lower extremity: LE assessment: normal temperature, no clubbing, no cyanosis, no edema Musculoskeletal: full range of motion, normal in spection Neuro/STAFF SUBMARINE WARFARE OFFICER: alert, normal speech Skin: poor skin turgor, dry Results Findings/Data: Laboratory Tests 09/04 09/03 09/03 09/03 09/03 0635 1945 1534 1519 1100 Chemistry Sodium (134 - 147 mEq/L) 144 Potassium (3.4 - 5.0 mEq/L) 4.1 Chloride (100 - 108 mEq/L) 107 Carbon Dioxide (21 - 33 mEq/l) 34 H Anion Gap (0 - 20) 7 BUN (7 - 18 mg/dL) 23 H Creatinine (0.6 - 1.3 mg/dL) 1.1 Glomerular Filtr Rate (70 - 80) 65.8 L Glucose (70 - 110 mg/dL) 96 POC Glucose (70 - 110 MG/DL) 110 186 H 90 147 H Calcium (8.0 - 10.5 mg/dL) 10.1 Magnesium (1.80 - 2.40 mg/dL) 1.93 Laboratory Tests 09/03 1519 Chemistry Magnesium (1.80 - 2.40 mg/dL) 1.93 Diagnosis, Assessment Plan Consultants: cardiology Free Text DxA P Notes Free Text DxA P Notes: 1. Acute congestive heart failure 2. Coronary atherosclerosis with prior CABG and prior PCI 3. Accelerated hypertension 4. Adult failure to thrive - prior prolonged hos pitalization 5. Diabetes mellitus 6. Normocytic anemia 7. Paroxysmal afib 8. 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 We will g et echo. Place on IV lasix to diurese and use BIPAP as well. Serial troponin i s negative. This does not represent ACS situation but rather likely an acute HF exacerbation. He will need to be put on higher maintena nce dose at discharge. For now, we know that he has prior 3vCABG per report as pancho jewell as prior remote PCI. is a big proponent for [facility] system for cardiac care and only want s cardiologists who have privileges there. For now, pancho wise will give him IV lasix and get the echo to see if any new systolic dysfunction has occurre d. Further recommendations after that. Monitor on telemetry, appears to be at s inus rhythm on admission. Need to have RN reconcile medications. Ne ed to see what the HGb trends, compared to last year is significantly reduced, but has recent chronic prolonged hospitalization, likely component anemia of chronic disease. 08/23/2021 Awaiting echocardiogram. He has been receiving I V Lasix 80 mg twice daily. He received a dose of 80 in the afternoon y and another one just now this morning. Prior to that I believe that he received about 60 mg in the emergency department yesterday. Per nursing report they at tempted to put a condom catheter however several sizes did not f it adequately. Also per nursing he has urinated in the bed several times. Thus it is mallory rd to know how well he is urinating. Obtain chest x-ray tomorrow. He repor ts that his breathing status is improved overall. Still on significant oxygen . They report no recent PCI. They also report that the patient was on Xarelto . As such we will see about starting that and discontinuing either the aspir in or the Plavix. As such, we will also need to monitor that hemoglobin. 08/24/2021 The patient has LVEF in the upper 40's, wall motion indicative and suggestive of prior CABG and prior scarrin g in certain areas. In either case, volume status is improving. He is now on Xare lto - no Hgb yet this AM. Also no labs yet this AM. He is on IV lasix, oxygen sats improving and wea branden down the oxygen. We will see if we can transition him to orals tomorrow. Plavix has been discontinued as well. Spoke with on the phone today to cristian barajas her [phone]. 08/25/2021 Some tachycardia on telemetry, oxygen requiremen ts improving, feeling better. Some hypertensive values. We will increase the beta mariaa dose. The xarelto is being tolerated. We will als o increase potassium and magnesium standing orders. On torsemide currently. Keisha tor overall - may require dose adjustment downwards after several days if he is still diuresing nice ly on this oral regimen. 08/26/2021 Change metoprolol to carvedilol for improved blo od pressure control. We will see about giving him metolazone. Obtain electrol ytes. Obtain hemoglobin. Obtain magnesium. Continue to monitor. We will a lso get chest x-ray. Oxygen requirements improving yet still there. 08/27/2021 Patient is laying flat. On 6 L however nasal can nula is not quite in his nose and he is satting 100%. Chest x-ray is o verall improved. Still with little bit of volume. We will give another dose of metolazo ne today. Continue to monitor otherwise. Order electrolytes. 08/28/2021 Getting a little dry. Some borderline blood pres sure. Hold the beta-mariaa this morning. Give a little bit of fluid back. D rop the torsemide to daily starting day after tomorrow if recovering nicely. Stop metolazone, has not been given yesterday or today due to borderline blood pressure. Hold the ARB and beta-mariaa for parameters. 08/29/2021 Creatinine at 1.6 today, 1.5 yesterday, but BUN less than yesterday. Given some fluids yesterday, likely cony teau effect, expect lowering tomorrow hopefully. BP more robust now compared to yesterday after given some fluid back, HR around 100 or less, afib. Give diuretic holiday today. Preliminary schedule torsemide 40 mg once daily to resume tomorrow. Resume the beta b locker. Continue to keep the losartan 100 mg held until the creatinine downtr ends for 2 days. If he discharges, needs a creatinine check within next few days at next facility he goes to. 08/30/2021 Creatinine much improved. Vitals good. HR contro l. On lower dose maintenance torsemide. Diuresed well. Ov erall doing much better. Losartan held. From cardiac standpoint, he is ready to move on from the [facility] setting. Overall better today. 08/31/2021 His overall fluid and volume status is tricky. Again creatinine is up. Will hold today diuretic, yesterday he was resumed on lower total dose of only torsemide 40 mg once daily from BID. Will change the maint enance diuretic down to torsemide 20 mg daily but give him diuretic holi day today with a bit of fluid back today. 09/01/2021 Patient looks good. Creatinine is down. Continue to monitor otherwise. Stable from the cardiac perspective for disposition. Aw aiting financial aspects with insurance. Continue to monitor hemodynamics and volume status. 09/02/2021 Patient is awaiting rehabilitation. Continue to monitor otherwise. Refused some labs. Need to monitor the creatinine. 09/03/2021 Patient is doing well. Diuretic in place . Discussed with him about getting lab work to monitor the renal function and t he potassium. He was agreeable. I will put the order in. If creatinine is little bit up , then we will need to see if we need to do a every other day diuretic. In eit her case, monitor for now. 09/04/2021 CR is stable at 1.1. Will continue with demadex 20mg daily. K was good. Continue supplemental K with the diuretic. Bp's are good. On xarelto for AFIB and rates are controlled. CV status appears stab le. Continue to monitor for now. at 0929 Electronically Signed by Andrew Bernabe MD on 09/04 at 0948 RPT #:[id number] END OF REPORT 2021-09-04 02:22:00-00:[address] [facility] ([facility]) Rehab Progress Note REPORT#:[id number] REPORT STATUS: Signed DATE:09/04/21 TIME: 221 PATIENT: OLIVIA MONROY UNIT #: [id number] ROOM/BED: [place] [address] : 48 AGE: 70 SEX: M ATTEND: Mykel Ramos A ADM AUTHOR: Bassam Mccullough MD * ALL edits or amendments must be made on the [employer]/computer document * Subjective Chief complaint: Rehab follow-up NAD Patient on 2 L nasal cannula Motivated Very weak Denies MALLORY/N/V/D/CP 14 systems reviewed and neg. except that above. Patient reports: No: shortness of breath, vomiting, constipation. Nursing reports: No: new events overnight. Objective General VS: Vital Signs: Date Time Temp Pulse Resp B/P B/P Pulse O2 O2 F low FiO2 Mean Ox Delivery Rate 09/04 0029 Nasal 2 cannula 09/03 2350 97.5 69 17 125/77 93.0 95 Nasal 2 cannula 09/03 1946 97.7 59 17 146/74 98.4 99 Nasal 4 cannula 09/03 1537 98.2 80 15 123/72 89.1 94 09/03 1527 98 Nasal 2 cannula 09/03 1101 97.9 59 15 116/71 85.9 100 09/03 0900 Nasal 4 cannula 09/03 0716 98.1 91 15 129/80 96.4 95 09/03 0315 97.5 73 18 122/70 87.1 97 Nasal cannula PATIENT WEIGHT: Weight (lb): Weight (oz): Weight (kg): 118.800 Medications: Active Meds + DC'd Last 24 Hrs Torsemide (DEMADEX) 20 MG DAILY PO Glipizide (GLUCOTROL) 5 MG AC BK PO Carvedilol (COREG) 6.25 MG BID PO Potassium Chloride (POTASSIUM CHLORIDE 20MEQ TAB .ER) 20 MEQ DAILY PO Magnesium Oxide (MAG-OX 400) 400 MG BID PO Rivaroxaban (XARELTO 20MG) 20 MG DAILY 1700 PO Acetaminophen (TYLENOL) 325 MG Q4H PRN PRN PO Atorvastatin Calcium (LIPITOR) 40 MG 2100 PO Aripiprazole (ABILIFY) 30 MG DAILY PO Aspirin (ASPIRIN) 81 MG DAILY PO Bupropion HCl (WELLBUTRIN) 100 MG QAM PO Albuterol Sulfate (ALBUTEROL SULFATE) 1.25 MG RT Q4H PRN PRN NEB Nutrition assessment: BMI-32.7 Functional Progress Functional progress: OT COMMENT 1. One on one supervision with cueing and anali tance provided to ensure proper performance of all activities: y Precautions: Fall Safety addressed through use of: Gait Belt Verbal Cues Tactile Cues Observed precautions for: Falls ACTIVITIES PERFORMED: Rolling Right: Minimal Assistance Rolling Left: Minimal Assistance Scooting up in bed: Minimal Assistance Lateral Scooting Right: Moderate Assistance Lateral Scooting Left: Moderate Assistance Supine to/from sitting: Moderate Assistance Functional Exercises: UE Mobility UE Strengthening Functional Reach Grasp red Tband Activities Performed Cmt: bed mob in prep for p hammad care/ toileting and to reach EOB for dynamic and static sittin g balance. red Tband therex 10 x 1 in all planes G/H set up A return to supine max A Assistive Device Used: HOSPITAL BED Staff Support taps Balance: Fair Safety Awareness: Fair Effects of Treatment: Cardio tolerance improved Circulation improved Function improved Impro. postural alignment Comments: pt found low in bed, need for new pads and sonia care. encouraged for OOB activity. pt reports, " I don't get out of bed, I dont walk", max coaxing to sit EOB to complete ADL tasks and Therex. Red t band provided. pt returned to supine. pt with LOB sitting EOB when completing BUE Therex. entering room, Education over OT/ PT SOP ,pt goals, and progress of todays session. demands pt needs to be out of bed, more agitated behavior. pt lucid, A O x 3, however self limiting, decreased morale, learned helplessness. Stressed to that clinicians can not force patients to complete therapy or get out of bed, only educate, encourage, and assist when pt is agreeable. Recliner provided for future session, reach out to INTAKE COORDINATOR and therapy management over feelings. Both OT and PT sessions have been completed today. RN aware of pt/pt behaviors and feelings. reports she will try and be here at "1200 noon tomorrow, but can't be up here all day, and I want to see him up!" Will notify Therapy team on time preference. PT COMMENT 1. One on one supervision with cueing and anali tance provided to ensure proper performance of all activities. Yes Precautions: Fall CONTACT MRSA NARES Weightbearing Restrictions: No Restriction Durable Medical Equipment Currently Utilized: Hospital Bed THERAPEUTIC EXERCISE(S) PERFORMED: Type: Active Body Segments: Ankle, Left Extremity, Lower Nickie Position: Sitting Exercise: ANKLE PUMP LAQ HIP FLEXION Repetitions: 20 Sets: 1 Safety addressed through use of: Verbal Cues Tactile Cues Effects of Treatment: Tolerance increased Post TX Precautions: In Bed, rails Up Bed Alarm Control Specialist Light in Reach Review Plan of Care: Yes Therapeutic Exc.Cmt: PATIENT IN BED UPON ARRIVA L AND REQUIRED MODERATE COAXING TO PARTICIPATE IN THERAPY. PATIENT MIN A FOR ROLLING LEFT AND MAX A FOR SUPINE TO SIT. PATIENT REPORTS OF DIZZYNESS UPON SITTING BUT ABLE TO CONTINUE. PATIENT TOLERATED SEATED EXERCISE X 20 IN ALL AVAILABLE PLANES. PATIENT REPORTS OF STOMACH PAIN AND DECLINED SIT TO STA ND TRANSFER. PATIENT PLACED BACK IN BED WITH MOD A FOR NICKIE LE ASSISTANCE. PATIENT LEFT IN BED WITH CALL OROZCO IN REACH AND ALL NEEDS MET. RN NOTIF IED AND AWARE. Physical Exam General appearance: alert, awake, oriented Psych: alert, normal affect HEENT: anicteric, sclera clear Neck: supple, no JVD Cardiovascular: regular rate rhythm, S1/S2, no m urmur Respiratory: diminished breath sounds Abdomen: bowel sounds present, non-distended, so ft Skin: intact, no rash Musculoskeletal - general: Musculoskeletal - general: joints normal, andre l muscle mass Neuro/STAFF SUBMARINE WARFARE OFFICER: alert, oriented X 3, CNII-XII intact Results Findings/Data: Laboratory Tests: 0509/03 1534 1519 1100 0713 Chemistry Sodium (134 - 147 mEq/L) 144 Potassium (3.4 - 5.0 mEq/L) 4.1 Chloride (100 - 108 mEq/L) 107 Carbon Dioxide (21 - 33 mEq/l) 34 H Anion Gap (0 - 20) 7 BUN (7 - 18 mg/dL) 23 H Creatinine (0.6 - 1.3 mg/dL) 1.1 Glomerular Filtr Rate (70 - 80) 65.8 L Glucose (70 - 110 mg/dL) 96 POC Glucose (70 - 110 MG/DL) 186 H 90 147 H 118 H Calcium (8.0 - 10.5 mg/dL) 10.1 Magnesium (1.80 - 2.40 mg/dL) 1.93 Objective Comments Objective comments: Chemistry: 09/03 1518 Chemistry Creatinine (0.6 - 1.3 mg/dL) 1.1 Diagnosis, Assessment Plan Free Text A P: Assessment: Adult failure to thrive-prior prolonged hospital ization Acute hypercapnic and hypoxi c respiratory failure secondary to CHF exacerbation, [id number] diastolic dysfunction. Generalized weakness Deconditioning Morbid obesity, body mass index 32.7 Impaired mobility and gait Acute respiratory failure with hypoxia Paroxysmal atrial fibrillation Acute on chronic systolic CHF ECHO showed EF 45 to 50% and PAP 57.19 mmHg, mod erate TR and [place]V. Coronary atherosclerosis with prior CABG and kristen or PCI Uncontrolled diabetes type 2 CKD stage III Accelerated hypertension Normocytic anemia IVCD LBBB Plan: Continue PT/OT Out of bed to chair Work on strength, bed mobility, transfers, gait Increase endurance Fall precautions DVT prophylaxis-patient on Xarelto for PAF and C HF CR is stable at 1.1. Will continue with demadex 20mg daily. K was good. Continue supplemental K with the diuretic. Bp's are good. On xarelto for AFIB and rates are controlled. CV status appears stab le. Continue to monitor for now as per cardio Labs reviewed: WBC normal, h emoglobin 8.4, platelets normal, BUN 23, creatinine 1.1, glucose 187, magnesium 1.93 Monitor p.o. intake and nutrition, check albumin and prealbumin, dietary consultation, protein supple ments promote healing-patient on Glucerna shake and [place] protein powder Strict decubitus precautions [facility]F level rehab. They did amber rove SNF level rehab. is refusing SNF Patient states none of the SNFs are close to his house. All of them are up in [place]. Pt. asked to stay in the hospital for rehab I explained to him this that SNF is his best sandy nce to get to therapy. He needs to stand and walk better Advance therapies as tolerable Patient making slow progress, tolerating therape utic exercises We will continue to follow patient make further recommendations as per the hospital course. Patient Progress-PATIENT IN BED UPON ARRIVAL AND REQUIRED MODERATE COAXING TO PARTICIPATE IN THERAPY. PATIENT MIN A FOR ROLLING LEFT AND MAX A FOR SUPINE TO SIT. PATIENT REPORTS OF DIZZYNESS UPON SITTING BUT ABLE TO CONTINUE. PATIENT TOLERATED SEATED EXERCISE X 20 IN ALL AVAILABLE PLANES. PATIENT REPORTS OF STOMACH PAIN AND DECLINED SIT TO STA ND TRANSFER. PATIENT PLACED BACK IN BED WITH MOD A FOR NICKIE LE ASSISTANCE. Washing hands/face: Supervision or Set-up Oral Hygiene: Supervision or Set-up Combing/brushing hair: Supervision or Set-up Shaving face: Moderate Assistance Total time was 34 minutes > 50% with patient per forming physical examination, discussing plan of care, goals, therapies, progr ess, medications, labs, IRF denial by insurance, SNF placement, patient's ne ed. EMR and MAR's were reviewed. All questions answered Consultants: cardiology Plan discussed with: patient, nurse, interdisc c are team Rehab attestation: . at 1211 RPT #:[id number] END OF REPORT 2021-09-03 12:48:00-00:[address] [facility] ([facility]) Cardiology Progress Note REPORT#:[id number] REPORT STATUS: Signed DATE:09/03/21 TIME: 1248 PATIENT: OLIVIA MONROY UNIT #: [id number] [place] [facility] [place] AGE: 70 SEX: M ATTEND: Mykel Ramos A ADM AUTHOR: Vinny Chou MD * ALL edits or amendments must be made on the [employer]/computer document * Subjective Chief complaint: SOB Free Text Subj Notes Free Text Subj Notes: Patient reports feeling well. Denies any acute c omplaints. Discussed with him about getting labs. Objective General VS/I O: 24 hour I O ending at 0700: 09/03 0709/02 1900 Intake Total Output Total 500 450 Balance -500 -450 Output, Urine 500 450 Vital Signs: Date Time Temp Pulse Resp B/P B/P Pulse O2 O2 F low FiO2 Mean Ox Delivery Rate 09/03 1101 97.9 59 15 116/71 85.9 100 09/03 0900 Nasal 4 cannula 09/03 0716 98.1 91 15 129/80 96.4 95 09/03 0315 97.5 73 18 122/70 87.1 97 Nasal cannula 09/02 2326 97.7 58 17 125/74 90.8 99 Nasal cannula 09/02 2237 Nasal 2 cannula 09/02 1824 97.7 74 17 117/67 84.1 100 Nasal cannula 09/02 1458 97.7 58 15 120/72 88.0 100 PATIENT WEIGHT: Weight (lb): Weight (oz): Weight (kg): 118.800 Medications: Active Meds + DC'd Last 24 Hrs Torsemide (DEMADEX) 20 MG DAILY PO Glipizide (GLUCOTROL) 5 MG AC BK PO Carvedilol (COREG) 6.25 MG BID PO Potassium Chloride (POTASSIUM CHLORIDE 20MEQ TAB .ER) 20 MEQ DAILY PO Magnesium Oxide (MAG-OX 400) 400 MG BID PO Rivaroxaban (XARELTO 20MG) 20 MG DAILY 1700 PO Acetaminophen (TYLENOL) 325 MG Q4H PRN PRN PO Atorvastatin Calcium (LIPITOR) 40 MG 2100 PO Aripiprazole (ABILIFY) 30 MG DAILY PO Aspirin (ASPIRIN) 81 MG DAILY PO Bupropion HCl (WELLBUTRIN) 100 MG QAM PO Albuterol Sulfate (ALBUTEROL SULFATE) 1.25 MG RT Q4H PRN PRN NEB Physical Exam General appearance: alert, awake, no acute distr ess Head/Eyes: atraumatic, normal conjunctiva/sclera , normocephalic ENT: moist mucosal membranes, normal pharynx Neck: full range of motion, supple/no meningismu s Cardiovascular: CV assessment: ectopy, irregular rhythm, irregu larly irregular Murmur assessment: 2/6 sm Respiratory: decreased breath sounds, on oxygen, no distress Abdomen: soft, non-tender, no distention Upper extremity: UE assessment: normal temperature, no clubbing, no cyanosis Lower extremity: LE assessment: normal temperature, no clubbing, no cyanosis, no edema Musculoskeletal: full range of motion, normal in spection Neuro/STAFF SUBMARINE WARFARE OFFICER: alert, normal speech Skin: poor skin turgor, dry Results Findings/Data: Laboratory Tests 09/03 09/03 09/02 1100 0713 1820 Chemistry POC Glucose (70 - 110 MG/DL) 147 H 118 H 174 H Results: labs reviewed, rhythm personally rev'd, current med profile rev'd Diagnosis, Assessment Plan Consultants: cardiology Free Text DxA P Notes Free Text DxA P Notes: 1. Acute congestive heart failure 2. Coronary atherosclerosis with prior CABG and prior PCI 3. Accelerated hypertension 4. Adult failure to thrive - prior prolonged hos pitalization 5. Diabetes mellitus 6. Normocytic anemia 7. Paroxysmal afib 8. 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 We will g et echo. Place on IV lasix to diurese and use BIPAP as well. Serial troponin i s negative. This does not represent ACS situation but rather likely an acute HF exacerbation. He will need to be put on higher maintena nce dose at discharge. For now, we know that he has prior 3vCABG per report as pancho jewell as prior remote PCI. is a big proponent for [facility] system for cardiac care and only want s cardiologists who have privileges there. For now, pancho wise will give him IV lasix and get the echo to see if any new systolic dysfunction has occurre d. Further recommendations after that. Monitor on telemetry, appears to be at s inus rhythm on admission. Need to have RN reconcile medications. Ne ed to see what the HGb trends, compared to last year is significantly reduced, but has recent chronic prolonged hospitalization, likely component anemia of chronic disease. 08/23/2021 Awaiting echocardiogram. He has been receiving I V Lasix 80 mg twice daily. He received a dose of 80 in the afternoon y and another one just now this morning. Prior to that I believe that he received about 60 mg in the emergency department yesterday. Per nursing report they at tempted to put a condom catheter however several sizes did not f it adequately. Also per nursing he has urinated in the bed several times. Thus it is mallory rd to know how well he is urinating. Obtain chest x-ray tomorrow. He repor ts that his breathing status is improved overall. Still on significant oxygen . They report no recent PCI. They also report that the patient was on Xarelto . As such we will see about starting that and discontinuing either the aspir in or the Plavix. As such, we will also need to monitor that hemoglobin. 08/24/2021 The patient has LVEF in the upper 40's, wall motion indicative and suggestive of prior CABG and prior scarrin g in certain areas. In either case, volume status is improving. He is now on Xare lto - no Hgb yet this AM. Also no labs yet this AM. He is on IV lasix, oxygen sats improving and wea branden down the oxygen. We will see if we can transition him to orals tomorrow. Plavix has been discontinued as well. Spoke with on the phone today to cristian barajas her [phone]. 08/25/2021 Some tachycardia on telemetry, oxygen requiremen ts improving, feeling better. Some hypertensive values. We will increase the beta mariaa dose. The xarelto is being tolerated. We will als o increase potassium and magnesium standing orders. On torsemide currently. Keisha tor overall - may require dose adjustment downwards after several days if he is still diuresing nice ly on this oral regimen. 08/26/2021 Change metoprolol to carvedilol for improved blo od pressure control. We will see about giving him metolazone. Obtain electrol ytes. Obtain hemoglobin. Obtain magnesium. Continue to monitor. We will a lso get chest x-ray. Oxygen requirements improving yet still there. 08/27/2021 Patient is laying flat. On 6 L however nasal can nula is not quite in his nose and he is satting 100%. Chest x-ray is o verall improved. Still with little bit of volume. We will give another dose of metolazo ne today. Continue to monitor otherwise. Order electrolytes. 08/28/2021 Getting a little dry. Some borderline blood pres sure. Hold the beta-mariaa this morning. Give a little bit of fluid back. D rop the torsemide to daily starting day after tomorrow if recovering nicely. Stop metolazone, has not been given yesterday or today due to borderline blood pressure. Hold the ARB and beta-mariaa for parameters. 08/29/2021 Creatinine at 1.6 today, 1.5 yesterday, but BUN less than yesterday. Given some fluids yesterday, likely cony teau effect, expect lowering tomorrow hopefully. BP more robust now compared to yesterday after given some fluid back, HR around 100 or less, afib. Give diuretic holiday today. Preliminary schedule torsemide 40 mg once daily to resume tomorrow. Resume the beta b locker. Continue to keep the losartan 100 mg held until the creatinine downtr ends for 2 days. If he discharges, needs a creatinine check within next few days at next facility he goes to. 08/30/2021 Creatinine much improved. Vitals good. HR contro l. On lower dose maintenance torsemide. Diuresed well. Ov erall doing much better. Losartan held. From cardiac standpoint, he is ready to move on from the [facility] setting. Overall better today. 08/31/2021 His overall fluid and volume status is tricky. Again creatinine is up. Will hold today diuretic, yesterday he was resumed on lower total dose of only torsemide 40 mg once daily from BID. Will change the maint enance diuretic down to torsemide 20 mg daily but give him diuretic holi day today with a bit of fluid back today. 09/01/2021 Patient looks good. Creatinine is down. Continue to monitor otherwise. Stable from the cardiac perspective for disposition. Aw aiting financial aspects with insurance. Continue to monitor hemodynamics and volume status. 09/02/2021 Patient is awaiting rehabilitation. Continue to monitor otherwise. Refused some labs. Need to monitor the creatinine. 09/03/2021 Patient is doing well. Diuretic in place . Discussed with him about getting lab work to monitor the renal function and t he potassium. He was agreeable. I will put the order in. If creatinine is little bit up , then we will need to see if we need to do a every other day diuretic. In eit her case, monitor for now. 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 He is on 2 liter NC. Breathing is stable. No CP, fever, chills. No N/v/D. BP and HR stable. Review of Systems ROS Constitutional: fatigue, generalized weakness. Skin: Denies: bruising, diaphoresis, ecchymosis, itchi ng. Eyes: Denies: discharge, visual loss/blurred, diplopia , eye pain. Respiratory: Reports: CHRISTENSEN (dyspnea on exertion), SOB. Cardiovascular: Denies: edema, orthopnea, palpitations. GI: Denies: abdominal pain, constipation, diarrhea, GERD, hiatal hernia. : Denies: dysuria, flank pain, hematuria, penile d ischarge, penile lesion, testicular pain. Musculoskeletal: Denies: extremity swelling, joint swelling, lumb ar pain, myalgias. Endocrine: Denies: polydipsia, polyphagia, polyuria. Neuro: Denies: bowel dysfunction, c hange in LOC, confusion, dizziness, focal weakness, gait problem, numbness. Objective General VS/I O: Last Documented: Result Date Time Pulse Ox 95 09/04 715 B/P 129/80 09/04 715 B/P Mean 96.4 09/04 715 Temp 36.7 09/04 715 Pulse 91 09/04 715 Resp 15 09/04 715 O2 Delivery Nasal cannula 09/03 314 O2 Flow Rate 2 09/02 2236 FiO2 40 08/296 24 hour I O ending at 0700: 0501 0700 09/02 1900 Intake Total Output Total 500 450 Balance -500 -450 Output, Urine 500 450 PATIENT WEIGHT: Weight (lb): Weight (oz): Weight (kg): 118.800 Medications: Active Meds + DC'd Last 24 Hrs Torsemide (DEMADEX) 20 MG DAILY PO Glipizide (GLUCOTROL) 5 MG AC BK PO Carvedilol (COREG) 6.25 MG BID PO Potassium Chloride (POTASSIUM CHLORIDE 20MEQ TAB .ER) 20 MEQ DAILY PO Magnesium Oxide (MAG-OX 400) 400 MG BID PO Rivaroxaban (XARELTO 20MG) 20 MG DAILY 1700 PO Acetaminophen (TYLENOL) 325 MG Q4H PRN PRN PO Atorvastatin Calcium (LIPITOR) 40 MG 2100 PO Aripiprazole (ABILIFY) 30 MG DAILY PO Aspirin (ASPIRIN) 81 MG DAILY PO Bupropion HCl (WELLBUTRIN) 100 MG QAM PO Albuterol Sulfate (ALBUTEROL SULFATE) 1.25 MG RT Q4H PRN PRN NEB Nutrition assessment: The data set between the solid lines has been im ported from the dietitian's assessment. Any exceptions have been noted under Provider comments. BMI Calculated: 32.7 Nutrition related diagnosis: Nutrition diagnosis details: Nutrition problem: Increased nutrient needs Nutrition etiology: Wound healing Nutrition signs and symptoms: Stage 2 sacrum Nutrition prescription: 1. C ONTINUE DIABETIC DIET TOLERATED. 2. ENCOURAGE PO INTAKE AND HONOR FOOD PREFERANCES. 3. PROVIDE GL UCERNA BID AND WILTON BID TO SUPPLEMENT MEALS AND AID IN WOUND HEALING. Dietitian name: TOD Mcneal Assessment completed: 08/31/21 Provider comments on imported dietitian assessme nt: Physical Exam General appearance: alert, awake Head/eyes: atraumatic, PERRLA Cardiovascular: normal heart sounds, normal S1/S 2 Respiratory/chest: on oxygen, respiratory distre ss, tachypneic Abdomen: soft, non-tender, no CVA tenderness Genitourinary: no bladder distention, no flank p ain Extremities: no clubbing, no cyanosis, no edema Musculoskeletal: no muscle spasm Neuro/STAFF SUBMARINE WARFARE OFFICER: alert, oriented X 3 Results Findings/Data: Laboratory Tests 09/03 09/02 09/02 0713 1820 1057 Chemistry POC Glucose (70 - 110 MG/DL) 118 H 174 H 121 H Results: vital signs stable, current med profile rev'd Treatment Prophylaxis Treatment Prophylaxis Oxygen: CPAP/BIPAP, nasal cannula Diagnosis, Assessment Plan Hospital course to date: ASSESSMENT: - Acute hypercapnic and hypoxic respiratory fail ure secondary to CHF exacerbation, gkuhf-rj-zckkoxi diastolic dysfunc tion. - Acute congestive heart failure exacerbation, a [id number]. - Hypokalemia.replaced. - VIANNEY. - History of hypertension. - History of hyperlipidemia. - History of atrial fibrillation. - Diabetes type 2. - History of coronary artery disease status post coronary artery bypass graft and percutaneous coronary intervention. - Morbid obesity, body mass index 32.7. - ECHO showed EF 45 to 50% and PAP 57.19 mmHg, m oderate TR and [place]V. PLAN: Floor. He does not want NH. He is stable on 2 liter NC. Patient is stable from Pulmaonry stand point. Continue to monitor respirat ory status, breathing treatment, oxygen support, and wean the oxygen slowly. Lasix per pay clerk. Follow labs and replace as needed. SCD for DVT prophylaxis. Continue home medication. Glycemic control, Accu-Chek a.c. and at bedtime, sliding scale. Monitor. Consultants: cardiology Code status: full code Plan discussed with: patient, admitting physicia n, consultants, nurse Ava Abarca 09/03/21 1606: Attestations Physician Attestation Agree w/findings plan: Patient seen and examined, c linical data reviewed and I agree with the findings and plan as discussed with and documented by Edwin Patel NP Electronically Signed by Seamus Patel NP on 05/27 at 0833 Electronically Signed by Ava Abarca MD on 0 09/03/21 at 1608 [facility] #:[id number] END OF REPORT 2021-09-03 07:07:00-00:00 [facility] ([facility]) Rehab Progress Note REPORT#:[id number] REPORT STATUS: Signed DATE:09/03/21 TIME: 706 PATIENT: OLIVIA MONROY UNIT #: [id number] ROOM/BED: [place] [address] : 48 AGE: 70 SEX: M ATTEND: Mykel Ramos A ADM AUTHOR: Amber Headley * ALL edits or amendments must be made on the [employer]/computer document * Subjective Chief complaint: Rehab follow-up NAD Patient on 2 L nasal cannula Motivated Very weak Denies MALLORY/N/V/D/CP 14 systems reviewed and neg. except that above. Objective General VS: Vital Signs: Date Time Temp Pulse Resp B/P B/P Pulse O2 O2 Flow FiO2 Mean Ox Delivery Rate 09/03 0315 97.5 73 18 122/70 87.1 97 Nasal cannula 09/02 2326 97.7 58 17 125/74 90.8 99 Nasal cannula 09/02 2237 Nasal 2 cannula 09/02 1824 97.7 74 17 117/67 84.1 100 Nasal cannula 09/02 1458 97.7 58 15 120/72 88.0 100 09/02 1059 97.9 83 14 112/72 85.3 99 09/02 1055 98 Nasal 2 cannula 09/02 0845 Nasal 4 cannula 09/02 0722 97.7 96 16 135/78 96.8 98 PATIENT WEIGHT: Weight (lb): Weight (oz): Weight (kg): 118.800 Medications: Active Meds + DC'd Last 24 Hrs Torsemide (DEMADEX) 20 MG DAILY PO Glipizide (GLUCOTROL) 5 MG AC BK PO Carvedilol (COREG) 6.25 MG BID PO Potassium Chloride (POTASSIUM CHLORIDE 20MEQ TAB .ER) 20 MEQ DAILY PO Magnesium Oxide (MAG-OX 400) 400 MG BID PO Rivaroxaban (XARELTO 20MG) 20 MG DAILY 1700 PO Acetaminophen (TYLENOL) 325 MG Q4H PRN PRN PO Atorvastatin Calcium (LIPITOR) 40 MG 2100 PO Aripiprazole (ABILIFY) 30 MG DAILY PO Aspirin (ASPIRIN) 81 MG DAILY PO Bupropion HCl (WELLBUTRIN) 100 MG QAM PO Albuterol Sulfate (ALBUTEROL SULFATE) 1.25 MG RT Q4H PRN PRN NEB Functional Progress Functional progress: Bed Mobility - Rolling: Supervision or Set-up Bed Mobility - Supine to Sit: Minimal Assistanc e Bed Mobility - Sit to Supine: Supervision or Se t-up Scooting: Supervision or Set-up Trunk control: Supervision or Set-up Sit to Stand: Maximal Assistance Static Sitting: Supervision or Set-up Static Standing: Maximal Assistance Functional Ambulation: Supervision or Set-up Distance in Feet: SIDE STEPS SIDE OF BED Functional Exercises: SUPINE<>SIT SIT<>STAND STATIC SITTING STATIC STANDING SCOOTING SIDE STEPS Durable Medical Equipment Currently Utilized: HOSPITAL BED RW Effects of Treatment: Balance Improved [place] of care decreased Function Improved Tolerance increased Post [place] Precautions: In Bed, rails Up Bed Alarm Control Specialist Light in Reach Nursing Notified O2 on Pulse OX in Place Telephone in reach Review Plan of Care: Yes Functional Mob.Cmt: Pt FOUND SUPINE, AGREEABLE TO SESSION. Pt MIN A SUPINE>SIT. Pt SPV STATIC SITTING EOB, SPV SCOOTING TO EOB. Pt MAX A SIT>STAND, REQUIRED VC/TC FOR HAND/FEET PLACEMENT. PT RETROPULSING BACK DURING STATIC STANDING, MAX A STATIC STANDING. Pt DEMONSTRATES DECRESED ENDURANCE, REQUIRED SITTING REST BREAK AFTER 10 SECONDS. P t FLOPS INTO SITTING. Pt MAX A SIT>STAND ONCE AGAIN, BALANCE STILL UNSTEADY. MAX A STATIC STANDING 2 0 SEC BEFORE NEEDING TO SIT. NOTED FORWARD FLEXE D POSTURE. Pt MAX A W/ 2 SIDE STEPS TOWARDS HOB. FLOPS INTO SITTING. Pt SPV SIT>SUPINE, STATES FEELING SOME DIZZINESS. Pt LEFT SUPINE WITH ALL NEEDS MET. SUPERVISED BY: [place] PTA Physical Exam General appearance: obese, alert, awake Psych: alert, normal affect HEENT: anicteric, sclera clear Neck: supple, no JVD Cardiovascular: regular rate rhythm, S1/S2, no m urmur Respiratory: diminished breath sounds Abdomen: bowel sounds present, non-distended, so ft Skin: intact, no rash Musculoskeletal - general: Musculoskeletal - general: joints normal, andre l muscle mass Neuro/STAFF SUBMARINE WARFARE OFFICER: alert, oriented X 3, CNII-XII intact Results Findings/Data: Laboratory Tests: 09/02 09/02 09/02 1820 1057 0718 Chemistry POC Glucose (70 - 110 MG/DL) 174 H 121 H 117 H Diagnosis, Assessment Plan Free Text A P: Generalized weakness Deconditioning Impaired mobility and gait Acute respiratory failure with hypoxia Paroxysmal atrial fibrillation Acute on chronic systolic CHF Uncontrolled diabetes type 2 CKD stage III Plan: Continue PT/OT Out of bed to chair Work on strength, bed mobility, transfers, gait Increase endurance Fall precautions Monitor p.o. intake and nutrition Strict decubitus precautions Advance therapies as tolerated [facility] did not approve IRF level rehab. They did amber rove SNF level rehab. is refusing SNF Patient states none of the s [place] are close to his house. All of them are up in [place] I explained to him this is his best zaldivar ce to get to therapy he needs to stand and walk better Total time was 34 minutes > 50% with patient per forming physical examination, discussing plan of care, goals, therapies, progr ess, medications, labs, IRF denial by insurance, SNF placement. All question s answered Rehab attestation: Face to face exam completed. Treatment plan disc ussed with patient. Meets continued stay criteria. Agree with interdiscipl inary treatment plan. Electronically Signed by Amber Headley on 0 09/03/21 at 1650 RPT #:[id number] END OF REPORT 2021-09-02 12:01:00-00:[address] [facility] Cardiology Progress Note REPORT#:[id number] REPORT STATUS: Signed DATE:09/02/21 TIME: 1201 PATIENT: OLIVIA MONROY UNIT #: [id number] ROOM/BED: [place] [address] : 48 AGE: 70 SEX: M ATTEND: Mary Ramos MD ADM AUTHOR: Vinny Chou MD * ALL edits or amendments must be made on the el [employer]ronic/computer document * Subjective Chief complaint: SOB Free Text Subj Notes Free Text Subj Notes: Refuse labs apparently. Sitting in the bed. Eati ng lunch. Denies any acute issues at this time. Objective General VS/I O: 24 hour I O ending at 0700: 09/02 0700 09/01 1900 Intake Total Output Total 580 250 Balance -580 -250 Number 1 1 Bowel Movements Output, Urine 580 250 Vital Signs: Date Time Temp Pulse Resp B/P B/P Pulse O2 O2 Flow FiO2 Mean Ox Delivery Rate 09/02 1059 97.9 83 14 112/72 85.3 99 09/02 1055 98 Nasal 2 cannula 09/02 0845 Nasal 4 cannula 09/02 0722 97.7 96 16 135/78 96.8 98 09/02 0356 97.7 86 16 138/81 100.4 96 Nasal cannula 09/02 0019 99 Nasal 2 cannula 09/01 2317 97.5 57 18 128/77 93.7 99 Nasal cannula 09/01 2124 Nasal 2 cannula 09/01 1902 97.9 60 16 119/73 88.7 97 Nasal cannula 09/01 1602 97.5 58 14 111/69 82.9 100 Room air PATIENT WEIGHT: Weight (lb): Weight (oz): Weight (kg): 118.800 Medications: Active Meds + DC'd Last 24 Hrs Torsemide (DEMADEX) 20 MG DAILY PO Glipizide (GLUCOTROL) 5 MG AC BK PO Carvedilol (COREG) 6.25 MG BID PO Potassium Chloride (POTASSIUM CHLORIDE 20MEQ TAB .ER) 20 MEQ DAILY PO Magnesium Oxide (MAG-OX 400) 400 MG BID PO Rivaroxaban (XARELTO 20MG) 20 MG DAILY 1700 PO Acetaminophen (TYLENOL) 325 MG Q4H PRN PRN PO Atorvastatin Calcium (LIPITOR) 40 MG 2100 PO Aripiprazole (ABILIFY) 30 MG DAILY PO Aspirin (ASPIRIN) 81 MG DAILY PO Bupropion HCl (WELLBUTRIN) 100 MG QAM PO Albuterol Sulfate (ALBUTEROL SULFATE) 1.25 MG RT Q4H PRN PRN NEB Physical Exam General appearance: alert, awake, no acute distr ess Head/Eyes: atraumatic, normal conjunctiva/sclera , normocephalic ENT: moist mucosal membranes, normal pharynx Neck: full range of motion, supple/no meningismu s Cardiovascular: CV assessment: ectopy, irregular rhythm, irregu larly irregular Murmur assessment: / sm Respiratory: decreased breath sounds, on oxygen, no distress Abdomen: soft, non-tender, no distention Upper extremity: UE assessment: normal temperature, no clubbing, no cyanosis Lower extremity: LE assessment: normal temperature, no clubbing, no cyanosis, no edema Musculoskeletal: full range of motion, normal in spection Neuro/STAFF SUBMARINE WARFARE OFFICER: alert, normal speech Skin: poor skin turgor, dry Results Findings/Data: Laboratory Tests 09/02 09/02 09/01 09/01 1057 0718 1859 1559 Chemistry POC Glucose (70 - 110 MG/DL) 121 H 117 H 111 H 116 H Results: labs reviewed, rhythm personally rev'd, current med profile rev'd Diagnosis, Assessment Plan Consultants: cardiology Free Text DxA P Notes Free Text DxA P Notes: 1. Acute congestive heart failure 2. Coronary atherosclerosis with prior CABG and prior PCI 3. Accelerated hypertension 4. Adult failure to thrive - prior prolonged hos pitalization 5. Diabetes mellitus 6. Normocytic anemia 7. Paroxysmal afib 8. 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 We will g et echo. Place on IV lasix to diurese and use BIPAP as well. Serial troponin i s negative. This does not represent ACS situation but rather likely an acute HF exacerbation. He will need to be put on higher maintena nce dose at discharge. For now, we know that he has prior 3vCABG per report as w ell as prior remote PCI. [facility] and only want s cardiologists who have privileges there. For now, w e will give him IV lasix and get the echo to see if any new systolic dysfunction has occurre d. Further recommendations after that. Monitor on telemetry, appears to be at s inus rhythm on admission. Need to have RN reconcile medications. Ne ed to see what the HGb trends, compared to last year is significantly reduced, but has recent chronic prolonged hospitalization, likely component anemia of chronic disease. 08/23/2021 Awaiting echocardiogram. He has been receiving I V Lasix 80 mg twice daily. He received a dose of 80 in the afternoon y and another one just now this morning. Prior to that I believe that he received about 60 mg in the emergency department yesterday. Per nursing report they at tempted to put a condom catheter however several sizes did not f it adequately. Also per nursing he has urinated in the bed several times. Thus it is mallory rd to know how well he is urinating. Obtain chest x-ray tomorrow. He repor ts that his breathing status is improved overall. Still on significant oxygen . They report no recent PCI. They also report that the patient was on Xarelto . As such we will see about starting that and discontinuing either the aspir in or the Plavix. As such, we will also need to monitor that hemoglobin. 08/24/2021 The patient has LVEF in the upper 40's, wall motion indicative and suggestive of prior CABG and prior scarrin g in certain areas. In either case, volume status is improving. He is now on Xare lto - no Hgb yet this AM. Also no labs yet this AM. He is on IV lasix, oxygen sats improving and wea branden down the oxygen. We will see if we can transition him to orals tomorrow. Plavix has been discontinued as well. Spoke with on the phone today to cristian barajas her [phone]. 08/25/2021 Some tachycardia on telemetry, oxygen requiremen ts improving, feeling better. Some hypertensive values. We will increase the beta mariaa dose. The xarelto is being tolerated. We will als o increase potassium and magnesium standing orders. On torsemide currently. Keisha tor overall - may require dose adjustment downwards after several days if he is still diuresing nice ly on this oral regimen. 08/26/2021 Change metoprolol to carvedilol for improved blo od pressure control. We will see about giving him metolazone. Obtain electrol ytes. Obtain hemoglobin. Obtain magnesium. Continue to monitor. We will a lso get chest x-ray. Oxygen requirements improving yet still there. 08/27/2021 Patient is laying flat. On 6 L however nasal can nula is not quite in his nose and he is satting 100%. Chest x-ray is o verall improved. Still with little bit of volume. We will give another dose of metolazo ne today. Continue to monitor otherwise. Order electrolytes. 08/28/2021 Getting a little dry. Some borderline blood pres sure. Hold the beta-mariaa this morning. Give a little bit of fluid back. D rop the torsemide to daily starting day after tomorrow if recovering nicely. Stop metolazone, has not been given yesterday or today due to borderline blood pressure. Hold the ARB and beta-mariaa for parameters. 08/29/2021 Creatinine at 1.6 today, 1.5 yesterday, but BUN less than yesterday. Given some fluids yesterday, likely cony teau effect, expect lowering tomorrow hopefully. BP more robust now compared to yesterday after given some fluid back, HR around 100 or less, afib. Give diuretic holiday today. Preliminary schedule torsemide 40 mg once daily to resume tomorrow. Resume the beta b locker. Continue to keep the losartan 100 mg held until the creatinine downtr ends for 2 days. If he discharges, needs a creatinine check within next few days at next facility he goes to. 08/30/2021 Creatinine much improved. Vitals good. HR contro l. On lower dose maintenance torsemide. Diuresed well. Ov erall doing much better. Losartan held. From cardiac standpoint, he is ready to move on from the [facility] setting. Overall better today. 08/31/2021 His overall fluid and volume status is tricky. Again creatinine is up. Will hold today diuretic, yesterday he was resumed on lower total dose of only torsemide 40 mg once daily from BID. Will change the maint enance diuretic down to torsemide 20 mg daily but give him diuretic holi day today with a bit of fluid back today. 09/01/2021 Patient looks good. Creatinine is down. Continue to monitor otherwise. Stable from the cardiac perspective for disposition. Aw aiting financial aspects with insurance. Continue to monitor hemodynamics and volume status. 09/02/2021 Patient is awaiting rehabilitation. Continue to monitor otherwise. Refused some labs. Need to monitor the creatinine. 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 He is on 2 liter NC. Breathing is stable. No CP, fever, chills. No N/v/D. BP and HR stable. Review of Systems ROS Constitutional: fatigue, generalized weakness. Eyes: Denies: discharge, visual loss/blurred, diplopia , eye pain. Respiratory: Reports: CHRISTENSEN (dyspnea on exertion), SOB. Cardiovascular: Denies: edema, orthopnea, palpitations. GI: Denies: abdominal pain, constipation, diarrhea, GERD, hiatal hernia. : Denies: dysuria, flank pain, hematuria, penile d ischarge, penile lesion, testicular pain. Musculoskeletal: Denies: extremity swelling, joint swelling, lumb ar pain, myalgias. Endocrine: Denies: polydipsia, polyphagia, polyuria. Neuro: Denies: bowel dysfunction, c hange in LOC, confusion, dizziness, focal weakness, gait problem, numbness. Objective General VS/I O: Last Documented: Result Date Time Pulse Ox 98 09/02 721 B/P 135/78 09/02 721 B/P Mean 96.8 09/02 721 Temp 36.5 09/02 721 Pulse 96 09/02 721 Resp 16 09/02 721 O2 Delivery Nasal cannula 09/02 0356 O2 Flow Rate 2 09/02 0019 FiO2 40 08/29 2106 24 hour I O ending at 0700: 09/02 0700 09/01 1900 Intake Total Output Total 580 250 Balance -580 -250 Number 1 1 Bowel Movements Output, Urine 580 250 PATIENT WEIGHT: Weight (lb): Weight (oz): Weight (kg): 118.800 Medications: Active Meds + DC'd Last 24 Hrs Torsemide (DEMADEX) 20 MG DAILY PO Glipizide (GLUCOTROL) 5 MG AC BK PO Carvedilol (COREG) 6.25 MG BID PO Potassium Chloride (POTASSIUM CHLORIDE 20MEQ TAB .ER) 20 MEQ DAILY PO Magnesium Oxide (MAG-OX 400) 400 MG BID PO Rivaroxaban (XARELTO 20MG) 20 MG DAILY 1700 PO Acetaminophen (TYLENOL) 325 MG Q4H PRN PRN PO Atorvastatin Calcium (LIPITOR) 40 MG 2100 PO Aripiprazole (ABILIFY) 30 MG DAILY PO Aspirin (ASPIRIN) 81 MG DAILY PO Bupropion HCl (WELLBUTRIN) 100 MG QAM PO Albuterol Sulfate (ALBUTEROL SULFATE) 1.25 MG RT Q4H PRN PRN NEB Nutrition assessment: The data set between the solid lines has been im ported from the dietitian's assessment. Any exceptions have been noted under Provider comments. BMI Calculated: 32.7 Nutrition related diagnosis: Nutrition diagnosis details: Nutrition problem: Increased nutrient needs Nutrition etiology: Wound healing Nutrition signs and symptoms: Stage 2 sacrum Nutrition prescription: 1. C ONTINUE DIABETIC DIET TOLERATED. 2. ENCOURAGE PO INTAKE AND HONOR FOOD PREFERANCES. 3. PROVIDE GL UCERNA BID AND WILTON BID TO SUPPLEMENT MEALS AND AID IN WOUND HEALING. Dietitian name: TOD Mcneal Assessment completed: 08/31/21 Provider comments on imported dietitian assessme nt: Physical Exam General appearance: alert, awake, oriented Head/eyes: atraumatic, PERRLA Cardiovascular: normal heart sounds, normal S1/S 2 Respiratory/chest: on oxygen, respiratory distre ss, tachypneic Abdomen: soft, non-tender, no CVA tenderness Genitourinary: no bladder distention, no flank p ain Extremities: no clubbing, no cyanosis, no edema Musculoskeletal: no muscle spasm Neuro/STAFF SUBMARINE WARFARE OFFICER: alert, oriented X 3 Results Findings/Data: Laboratory Tests 09/02 09/01 09/01 09/01 0718 1859 1559 1122 Chemistry POC Glucose (70 - 110 MG/DL) 117 H 111 H 116 H 163 H Results: labs reviewed, vital signs reviewed, cu rrent med profile rev'd Treatment Prophylaxis Treatment Prophylaxis Oxygen: CPAP/BIPAP, nasal cannula Diagnosis, Assessment Plan Hospital course to date: ASSESSMENT: - Acute hypercapnic and hypoxic respiratory fail ure secondary to CHF exacerbation, [id number] diastolic dysfunc tion. - Acute congestive heart failure exacerbation, a [id number]. - Hypokalemia.replaced. - VIANNEY. - History of hypertension. - History of hyperlipidemia. - History of atrial fibrillation. - Diabetes type 2. - History of coronary artery disease status post coronary artery bypass graft and percutaneous coronary intervention. - Morbid obesity, body mass index 32.7. - ECHO showed EF 45 to 50% and PAP 57.19 mmHg, m oderate TR and [place]. PLAN: Floor. He does not want NH. Patient is stable from Pulmaonry stand point. Continue to monitor respirat ory status, breathing treatment, oxygen support, and wean the oxygen slowly. Lasix per pay clerk. Follow labs and replace as needed. SCD for DVT prophylaxis. Continue home medication. Glycemic control, Accu-Chek a.c. and at bedtime, sliding scale. Monitor. Consultants: cardiology Code status: full code Plan discussed with: patient, admitting physicia n, consultants, nurse Ava Abarca 09/03/21 1606: Attestations Physician Attestation Agree w/findings plan: Patient seen and examined, c linical data reviewed and I agree with the findings and plan as discussed with and documented by Edwin Patel NP Electronically Signed by Seamus Patel NP on at 0856 Electronically Signed by Ava Abarca MD on 0 09/03/21 at 1607 RPT #:[id number] END OF REPORT 2021-09-02 07:13:00-00:00 [facility]L [facility] Rehab Progress Note REPORT#:[id number] REPORT STATUS: Signed DATE:09/02/21 TIME: 712 PATIENT: OLIVIA MONROY UNIT #: [id number] ROOM/BED: [place] [address] : 48 AGE: 70 SEX: M ATTEND: Mykel Ramos is A MD ADM AUTHOR: Amber Headley * ALL edits or amendments must be made on the [employer] document * Subjective Chief complaint: Rehab follow-up NAD Patient on 2 L nasal cannula Motivated Very weak Denies MALLORY/N/V/D/CP 14 systems reviewed and neg. except that above. Objective General VS: Vital Signs: Date Time Temp Pulse Resp B/P B/P Pulse O2 O2 F low FiO2 Mean Ox Delivery Rate 09/02 0356 97.7 86 16 138/81 100.4 96 Nasal cannula 09/02 0019 99 Nasal 2 cannula 09/01 2317 97.5 57 18 128/77 93.7 99 Nasal cannula 09/01 2124 Nasal 2 cannula 09/01 1902 97.9 60 16 119/73 88.7 97 Nasal cannula 09/01 1602 97.5 58 14 111/69 82.9 100 Room air 09/01 1124 98.1 81 13 116/74 88.2 100 Nasal cannula 09/01 1115 Nasal 2 cannula 09/01 1047 96 09/01 1047 96 Nasal 2 cannula 09/01 0720 97.9 77 14 110/70 83.0 98 Nasal cannula PATIENT WEIGHT: Weight (lb): Weight (oz): Weight (kg): 118.800 Medications: Active Meds + DC'd Last 24 Hrs Torsemide (DEMADEX) 20 MG DAILY PO Glipizide (GLUCOTROL) 5 MG AC BK PO Carvedilol (COREG) 6.25 MG BID PO Potassium Chloride (POTASSIUM CHLORIDE 20MEQ TAB .ER) 20 MEQ DAILY PO Magnesium Oxide (MAG-OX 400) 400 MG BID PO Rivaroxaban (XARELTO 20MG) 20 MG DAILY 1700 PO Acetaminophen (TYLENOL) 325 MG Q4H PRN PRN PO Atorvastatin Calcium (LIPITOR) 40 MG 2100 PO Aripiprazole (ABILIFY) 30 MG DAILY PO Aspirin (ASPIRIN) 81 MG DAILY PO Bupropion HCl (WELLBUTRIN) 100 MG QAM PO Albuterol Sulfate (ALBUTEROL SULFATE) 1.25 MG RT Q4H PRN PRN NEB Functional Progress Functional progress: ACTIVITIES PERFORMED: Scooting up in bed: Minimal Assistance Lateral Scooting Right: Minimal Assistance Lateral Scooting Left: Minimal Assistance Supine to/from sitting: Minimal Assistance Functional Exercises: UE Mobility UE Strengthening Activities Performed Cmt: 3# weighted dowel ex Assistive Device Used: HOSPITAL BED Balance: Fair Safety Awareness: Fair Effects of Treatment: Cardio tolerance improved Circulation improved Function improved Comments: PT COMPLETED BED MOBILITY MIN A TO SIT EOB FOR SELF CARE AND UB STRENGTHENING. PT REQUIRED REST BREAKS IN BETWEEN SETS. FATIGUES EASILY. PLANNING TO D/C TO IRF. 3# DOWEL EX 10 X 6. PT RETURNED TO SUPINE SPV AND LEFT W/ NEEDS IN REACH. CONTINUE POC. Physical Exam General appearance: obese, alert, awake Psych: alert, normal affect HEENT: anicteric, sclera clear Neck: supple, no JVD Cardiovascular: regular rate rhythm, S1/S2, no m urmur Respiratory: diminished breath sounds Abdomen: bowel sounds present, non-distended, so ft Skin: intact, no rash Musculoskeletal - general: Musculoskeletal - general: joints normal, andre l muscle mass Neuro/STAFF SUBMARINE WARFARE OFFICER: alert, oriented X 3, CNII-XII intact Results Findings/Data: Laboratory Tests 09/01 09/01 09/01 09/01 08/31 1859 1559 1122 0718 1957 Chemistry POC Glucose (70 - 110 MG/DL) 111 H 116 H 163 H 113 H 101 08/31 08/31 08/31 08/31 08/31 1718 1607 1145 0734 0420 Chemistry Sodium (134 - 147 mEq/L) 141 142 Potassium (3.4 - 5.0 mEq/L) 4.0 3.3 L Chloride (100 - 108 mEq/L) 101 101 Carbon Dioxide (21 - 33 mEq/l) 36 H 37 H Anion Gap (0 - 20) 8 8 BUN (7 - 18 mg/dL) 29 H 32 H Creatinine (0.6 - 1.3 mg/dL) 1.3 1.5 H Glomerular Filtr Rate (70 - 80) 54.3 L 46.0 L Glucose (70 - 110 mg/dL) 106 102 POC Glucose (70 - 110 MG/DL) 116 H 143 H 114 H Calcium (8.0 - 10.5 mg/dL) 10.2 10.1 Magnesium (1.80 - 2.40 mg/dL) 2.01 08/30 1741 1153 0719 Chemistry POC Glucose (70 - 110 MG/DL) 102 85 77 170 H 13 0 H Diagnosis, Assessment Plan Free Text A P: Generalized weakness Deconditioning Impaired mobility and gait Acute respiratory failure with hypoxia Paroxysmal atrial fibrillation Acute on chronic systolic CHF Uncontrolled diabetes type 2 CKD stage III Plan: Continue PT/OT Out of bed to chair Work on strength, bed mobility, transfers, gait Increase endurance Fall precautions Monitor p.o. intake and nutrition Strict decubitus precautions Advance therapies as tolerated [facility] did not approve IRF level rehab. They did amber rove SNF level rehab. is refusing SNF Total time was 33 minutes > 50% with patient per forming physical examination, discussing plan of care, goals, therapies, progr ess, medications, labs. All questions answered Rehab attestation: . Electronically Signed by Amber Headley on 0 09/03/21 at 0620 RPT #:[id number] END OF REPORT 2021-09-01 12:21:00-00:00 [facility] [place] [facility] Prog. Note REPORT#:[id number] REPORT STATUS: Signed DATE:09/01/21 TIME: 1221 PATIENT: OLIVIA MONROY UNIT #: [id number] ROOM/BED: [place] [address] : 48 AGE: 70 SEX: M ATTEND: Mykel Ramos A ADM AUTHOR: Benedicto Ramos MD * ALL edits or amendments must be made on the el [employer]/computer document * Subjective Chief complaint: " I don't want to go to a [place]" Review of Systems All systems rev neg: except as marked Objective General Medications: Active Meds + DC'd Last 24 Hrs Torsemide (DEMADEX) 20 MG DAILY PO Sodium Chloride (SODIUM CHLORIDE 0.9%) 1,000 ML .Q20H IV (DC) Glipizide (GLUCOTROL) 5 MG AC BK PO Carvedilol (COREG) 6.25 MG BID PO Potassium Chloride (POTASSIUM CHLORIDE 20MEQ TAB .ER) 20 MEQ DAILY PO Magnesium Oxide (MAG-OX 400) 400 MG BID PO Rivaroxaban (XARELTO 20MG) 20 MG DAILY 1700 PO Acetaminophen (TYLENOL) 325 MG Q4H PRN PRN PO Atorvastatin Calcium (LIPITOR) 40 MG 2100 PO Aripiprazole (ABILIFY) 30 MG DAILY PO Aspirin (ASPIRIN) 81 MG DAILY PO Bupropion HCl (WELLBUTRIN) 100 MG QAM PO Albuterol Sulfate (ALBUTEROL SULFATE) 1.25 MG RT Q4H PRN PRN NEB Physical Exam General appearance: alert, awake, oriented Head/Eyes: atraumatic, EOMI ENT: moist mucosal membranes Neck: full range of motion, non-tender Cardiovascular: irregularly irregular, normal he art sounds Respiratory: crackles, on oxygen, symmetric expa nsion Abdomen: non-tender, normal bowel sounds, soft Extremities: Extremities: edema Musculoskeletal: full range of motion, normal in spection Neuro/STAFF SUBMARINE WARFARE OFFICER: alert, oriented x 3 Psychiatry: normal affect, normal judgement/insi ght, normal mood Results Findings/Data: Laboratory Tests 08/31/218: [Embedded Image Not Available] Laboratory Tests 09/01 09/01 08/31 08/31 08/31 1122 0718 1957 1718 1607 Chemistry Sodium (134 - 147 mEq/L) 141 Potassium (3.4 - 5.0 mEq/L) 4.0 Chloride (100 - 108 mEq/L) 101 Carbon Dioxide (21 - 33 mEq/l) 36 H Anion Gap (0 - 20) 8 BUN (7 - 18 mg/dL) 29 H Creatinine (0.6 - 1.3 mg/dL) 1.3 Glomerular Filtr Rate (70 - 80) 54.3 L Glucose (70 - 110 mg/dL) 106 POC Glucose (70 - 110 MG/DL) 163 H 113 H 101 11 6 H Calcium (8.0 - 10.5 mg/dL) 10.2 Magnesium (1.80 - 2.40 mg/dL) 2.01 Diagnosis, Assessment Plan Problem List/A P: 1. Acute on chronic systolic CHF (congestive he art failure), NYHA class 1 2. NORRIS (obstructive sleep apnea) 3. Paroxysmal atrial fibrillation 4. Uncontrolled type 2 diabetes mellitus with c hronic kidney disease 5. CKD stage 3 due to type 2 diabetes mellitus 6. History of coronary artery bypass graft x 3 7. Acute respiratory failure with hypoxia Orders: Continue Torsemide BMP follow up On Glipizide,ADA diet,bs ac/hs On Coreg,ASA,Lipitor On Xarelto PT/OT Transfer to SNF when accepted. Procedure Date/time Status OXYGEN PER HOUR 09/01 1057 Complete FUNCTIONAL TRAINING 09/01 954 Active ADL 15 MIN 09/01 09 Active OXYGEN PER HOUR 09/01 0350 Complete Electronically Signed by Benedicto Ramos MD on 0 09/01/21 at 1225 RPT #:[id number] END OF REPORT 2021-09-01 09:48:00-00:[address] [facility] Cardiology Progress Note REPORT#:[id number] REPORT STATUS: Signed DATE:09/01/21 TIME: 09 PATIENT: OLIVIA MONROY UNIT #: [id number] ROOM/BED: [place] [address] : 48 AGE: 70 SEX: M ATTEND: Mykel Ramos MD ADM AUTHOR: Vinny Chou MD * ALL edits or amendments must be made on the [employer]/computer document * Subjective Chief complaint: SOB Free Text Subj Notes Free Text Subj Notes: Patient doing okay. Wants to go to rehab. Awaiti ng insurance issues. Objective General VS/I O: 24 hour I O ending at 0700: 09/01 0700 08/31 1900 Intake Total Output Total 400 150 Balance -400 -150 Number 2 Bowel Movements Number 2 Incontinent Voids Number Voids 1 Output, Urine 400 150 Vital Signs: Date Time Temp Pulse Resp B/P B/P Pulse O2 O2 F low FiO2 Mean Ox Delivery Rate 09/02 719 97.9 77 14 110/70 83.0 98 Nasal cannula 09/02 415 97.5 82 16 130/85 99.8 98 09/018 96 Nasal 2 cannula 08/31 2322 97.7 79 16 122/73 89.7 98 Room air 09/01 2019 Nasal 2 cannula 04/28 1927 97.7 76 16 113/58 76.4 99 Nasal 2 cannula 08/31 1612 97.5 64 12 99/65 76.4 100 08/31 1149 97.7 91 14 99/54 69.1 96 Nasal cannula PATIENT WEIGHT: Weight (lb): Weight (oz): Weight (kg): 118.800 Medications: Active Meds + DC'd Last 24 Hrs Torsemide (DEMADEX) 20 MG DAILY PO Sodium Chloride (SODIUM CHLORIDE 0.9%) 1,000 ML .Q20H IV (DC) Glipizide (GLUCOTROL) 5 MG AC BK PO Carvedilol (COREG) 6.25 MG BID PO Potassium Chloride (POTASSIUM CHLORIDE 20MEQ TAB .ER) 20 MEQ DAILY PO Magnesium Oxide (MAG-OX 400) 400 MG BID PO Rivaroxaban (XARELTO 20MG) 20 MG DAILY 1700 PO Acetaminophen (TYLENOL) 325 MG Q4H PRN PRN PO Atorvastatin Calcium (LIPITOR) 40 MG 2100 PO Aripiprazole (ABILIFY) 30 MG DAILY PO Aspirin (ASPIRIN) 81 MG DAILY PO Bupropion HCl (WELLBUTRIN) 100 MG QAM PO Albuterol Sulfate (ALBUTEROL SULFATE) 1.25 MG RT Q4H PRN PRN NEB Physical Exam General appearance: alert, awake, no acute distr ess Head/Eyes: atraumatic, normal conjunctiva/sclera , normocephalic ENT: moist mucosal membranes, normal pharynx Neck: full range of motion, supple/no meningismu s Cardiovascular: CV assessment: ectopy, irregular rhythm, irregu larly irregular Murmur assessment: 2/6 sm Respiratory: decreased breath sounds, on oxygen, no distress Abdomen: soft, non-tender, no distention Upper extremity: UE assessment: normal temperature, no clubbing, no cyanosis Lower extremity: LE assessment: normal temperature, no clubbing, no cyanosis, no edema Musculoskeletal: full range of motion, normal in spection Neuro/STAFF SUBMARINE WARF[employer] OFFICER: alert, normal speech Skin: poor skin turgor, dry Results Findings/Data: Laboratory Tests 09/01 08/31 08/31 08/31 08/31 0718 1957 1718 1607 1145 Chemistry Sodium (134 - 147 mEq/L) 141 Potassium (3.4 - 5.0 mEq/L) 4.0 Chloride (100 - 108 mEq/L) 101 Carbon Dioxide (21 - 33 mEq/l) 36 H Anion Gap (0 - 20) 8 BUN (7 - 18 mg/dL) 29 H Creatinine (0.6 - 1.3 mg/dL) 1.3 Glomerular Filtr Rate (70 - 80) 54.3 L Glucose (70 - 110 mg/dL) 106 POC Glucose (70 - 110 MG/DL) 113 H 101 116 H 14 3 H Calcium (8.0 - 10.5 mg/dL) 10.2 Magnesium (1.80 - 2.40 mg/dL) 2.01 Laboratory Tests 08/31 1718 Chemistry Magnesium (1.80 - 2.40 mg/dL) 2.01 Results: labs reviewed, rhythm personally rev'd, current med profile rev'd Diagnosis, Assessment Plan Consultants: cardiology Free Text DxA P Notes Free Text DxA P Notes: 1. Acute congestive heart failure 2. Coronary atherosclerosis with prior CABG and prior PCI 3. Accelerated hypertension 4. Adult failure to thrive - prior prolonged hos pitalization 5. Diabetes mellitus 6. Normocytic anemia 7. Paroxysmal afib 8. 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 We will g et echo. Place on IV lasix to diurese and use BIPAP as well. Serial troponin i s negative. This does not represent ACS situation but rather likely an acute HF exacerbation. He will need to be put on higher maintena nce dose at discharge. For now, we know that he has prior 3vCABG per report as w best as prior remote PCI. [facility] and only want s cardiologists who have privileges there. For now, w e will give him IV lasix and get the echo to see if any new systolic dysfunction has occurre d. Further recommendations after that. Monitor on telemetry, appears to be at s inus rhythm on admission. Need to have RN reconcile medications. Ne ed to see what the HGb trends, compared to last year is significantly reduced, but has recent chronic prolonged hospitalization, likely component anemia of chronic disease. 08/23/2021 Awaiting echocardiogram. He has been receiving I V Lasix 80 mg twice daily. He received a dose of 80 in the afternoon y and another one just now this morning. Prior to that I believe that he received about 60 mg in the emergency department yesterday. Per nursing report they at tempted to put a condom catheter however several sizes did not f it adequately. Also per nursing he has urinated in the bed several times. Thus it is mallory rd to know how well he is urinating. Obtain chest x-ray tomorrow. He repor ts that his breathing status is improved overall. Still on significant oxyge n. They report no recent PCI. They also report that the patient was on Xarelto . As such we will see about starting that and discontinuing either the aspir in or the Plavix. As such, we will also need to monitor that hemoglobin. 08/24/2021 The patient has LVEF in the upper 40's, wall motion indicative and suggestive of prior CABG and prior scarrin g in certain areas. In either case, volume status is improving. He is now on Xare lto - no Hgb yet this AM. Also no labs yet this AM. He is on IV lasix, oxygen sats improving and wea branden down the oxygen. We will see if we can transition him to orals tomorrow. Plavix has been discontinued as well. Spoke with on the phone today to cristian karl her [phone]. 08/25/2021 Some tachycardia on telemetry, oxygen requiremen ts improving, feeling better. Some hypertensive values. We will increase the beta mariaa dose. The xarelto is being tolerated. We will als o increase potassium and magnesium standing orders. On torsemide currently. Keisha tor overall - may require dose adjustment downwards after several days if he is still diuresing nice ly on this oral regimen. 08/26/2021 Change metoprolol to carvedilol for improved blo od pressure control. We will see about giving him metolazone. Obtain electrol ytes. Obtain hemoglobin. Obtain magnesium. Continue to monitor. We will a lso get chest x-ray. Oxygen requirements improving yet still there. 08/27/2021 Patient is laying flat. On 6 L however nasal can nula is not quite in his nose and he is satting 100%. Chest x-ray is o verall improved. Still with little bit of volume. We will give another dose of metolazo ne today. Continue to monitor otherwise. Order electrolytes. 08/28/2021 Getting a little dry. Some borderline blood pres sure. Hold the beta-mariaa this morning. Give a little bit of fluid back. D rop the torsemide to daily starting day after tomorrow if recovering nicely. Stop metolazone, has not been given yesterday or today due to borderline blood pressure. Hold the ARB and beta-mariaa for parameters. 08/29/2021 Creatinine at 1.6 today, 1.5 yesterday, but BUN less than yesterday. Given some fluids yesterday, likely cony teau effect, expect lowering tomorrow hopefully. BP more robust now compared to yesterday after given some fluid back, HR around 100 or less, afib. Give diuretic holiday today. Preliminary schedule torsemide 40 mg once daily to resume tomorrow. Resume the beta b locker. Continue to keep the losartan 100 mg held until the creatinine downtr ends for 2 days. If he discharges, needs a creatinine check within next few days at next facility he goes to. 08/30/2021 Creatinine much improved. Vitals good. HR contro l. On lower dose maintenance torsemide. Diuresed well. Ov erall doing much better. Losartan held. From cardiac standpoint, he is ready to move on from the [facility] setting. Overall better today. 08/31/2021 His overall fluid and volume status is tricky. Again creatinine is up. Will hold today diuretic, yesterday he was resumed on lower total dose of only torsemide 40 mg once daily from BID. Will change the maint enance diuretic down to torsemide 20 mg daily but give him diuretic holi day today with a bit of fluid back today. 09/01/2021 Patient looks good. Creatinine is down. Continue to monitor otherwise. Stable from the cardiac perspective for disposition. Aw aiting financial aspects with insurance. Continue to monitor hemodynamics and volume status. Electronically Signed by Vinny Chou MD on at 0949 RPT #:[id number] END OF REPORT 2021-09-01 08:42:00-00:00 [facility] Pulmonology Progress Note REPORT#:[id number] REPORT STATUS: Signed DATE:09/01/21 TIME: 08 PATIENT: OLIVIA MONROY UNIT #: [id number] ROOM/BED: [place] [address] : 48 AGE: 70 SEX: M ATTEND: Mykel Ramos is A MD ADM AUTHOR: Seamus Patel NP * ALL edits or amendments must be made on the [employer]/computer document * Subjective Chief complaint: He is breathing better on 2 liter NC. NO CP, fever, chills. NO N/v/D. BP and HR stable. Review of Systems ROS Constitutional: fatigue, generalized weakness. Skin: Denies: bruising, diaphoresis, ecchymosis, itchi ng. Eyes: Denies: discharge, visual loss/blurred, diplopia , eye pain. Respiratory: Reports: CHRISTENSEN (dyspnea on exertion), SOB. Cardiovascular: Denies: edema, orthopnea, palpitations. GI: Denies: abdominal pain, constipation, diarrhea, GERD, hiatal hernia. : Denies: dysuria, flank pain, hematuria, penile d ischarge, penile lesion, testicular pain. Musculoskeletal: Denies: extremity swelling, joint swelling, lumb ar pain, myalgias. Endocrine: Denies: polydipsia, polyphagia, polyuria. Neuro: Denies: bowel dysfunction, c hange in LOC, confusion, dizziness, focal weakness, gait problem, numbness. Objective General VS/I O: Last Documented: Result Date Time Pulse Ox 98 09/02 719 B/P 110/70 09/02 719 B/P Mean 83.0 09/01 07 O2 Delivery Nasal cannula 09/02 719 Temp 36.6 09/02 719 Pulse 77 09/01 07 Resp 14 09/02 719 O2 Flow Rate 2 09/01 0348 FiO2 40 08/29 2106 24 hour I O ending at 0700: 09/01 0700 08/31 1900 Intake Total Output Total 400 150 Balance -400 -150 Number 2 Bowel Movements Number 2 Incontinent Voids Number Voids 1 Output, Urine 400 150 PATIENT WEIGHT: Weight (lb): Weight (oz): Weight (kg): 118.800 Medications: Active Meds + DC'd Last 24 Hrs Torsemide (DEMADEX) 20 MG DAILY PO Potassium Chloride (POTASSIUM CHLORIDE 20MEQ TAB .ER) 20 MEQ ONCE ONE PO (DC) Sodium Chloride (SODIUM CHLORIDE 0.9%) 1,000 ML .Q20H IV (DC) Glipizide (GLUCOTROL) 5 MG AC BK PO Carvedilol (COREG) 6.25 MG BID PO Potassium Chloride (POTASSIUM CHLORIDE 20MEQ TAB .ER) 20 MEQ DAILY PO Magnesium Oxide (MAG-OX 400) 400 MG BID PO Rivaroxaban (XARELTO 20MG) 20 MG DAILY 1700 PO Acetaminophen (TYLENOL) 325 MG Q4H PRN PRN PO Atorvastatin Calcium (LIPITOR) 40 MG 2100 PO Aripiprazole (ABILIFY) 30 MG DAILY PO Aspirin (ASPIRIN) 81 MG DAILY PO Bupropion HCl (WELLBUTRIN) 100 MG QAM PO Albuterol Sulfate (ALBUTEROL SULFATE) 1.25 MG RT Q4H PRN PRN NEB Nutrition assessment: The data set between the solid lines has been im ported from the dietitian's assessment. Any exceptions have been noted under Provider comments. BMI Calculated: 32.7 Nutrition related diagnosis: Nutrition diagnosis details: Nutrition problem: Increased nutrient needs Nutrition etiology: Wound healing Nutrition signs and symptoms: Stage 2 sacrum Nutrition prescription: 1. C ONTINUE DIABETIC DIET TOLERATED. 2. ENCOURAGE PO INTAKE AND HONOR FOOD PREFERANCES. 3. PROVIDE GL UCERNA BID AND WILTON BID TO SUPPLEMENT MEALS AND AID IN WOUND HEALING. Dietitian name: TOD Mcneal Assessment completed: 08/31/21 Provider comments on imported dietitian assessme nt: Physical Exam General appearance: alert, awake, oriented Head/eyes: atraumatic, PERRLA Cardiovascular: normal heart sounds, normal S1/S 2 Respiratory/chest: on oxygen, respiratory distre ss, tachypneic Abdomen: soft, non-tender, no CVA tenderness Genitourinary: no bladder distention, no flank p ain Extremities: no clubbing, no cyanosis, no edema Musculoskeletal: no muscle spasm Neuro/STAFF [employer]AR[employer] OFFICER: alert, oriented X 3 Results Findings/Data: Laboratory Tests 08/31/218: [Embedded Image Not Available] Laboratory Tests 09/01 08/31 08/31 08/31 08/31 0718 7 1718 1607 1145 Chemistry Sodium (134 - 147 mEq/L) 141 Potassium (3.4 - 5.0 mEq/L) 4.0 Chloride (100 - 108 mEq/L) 101 Carbon Dioxide (21 - 33 mEq/l) 36 H Anion Gap (0 - 20) 8 BUN (7 - 18 mg/dL) 29 H Creatinine (0.6 - 1.3 mg/dL) 1.3 Glomerular Filtr Rate (70 - 80) 54.3 L Glucose (70 - 110 mg/dL) 106 POC Glucose (70 - 110 MG/DL) 113 H 101 116 H 14 3 H Calcium (8.0 - 10.5 mg/dL) 10.2 Magnesium (1.80 - 2.40 mg/dL) 2.01 Results: vital signs reviewed, vital signs stabl e, current med profile rev'd Treatment Prophylaxis Treatment Prophylaxis Oxygen: CPAP/BIPAP, nasal cannula Diagnosis, Assessment Plan Hospital course to date: ASSESSMENT: - Acute hypercapnic and hypoxic respiratory fail ure secondary to CHF exacerbation, fgkjz-no-acdymte diastolic dysfunc tion. - Acute congestive heart failure exacerbation, a clyt-la-swdsaei. - Hypokalemia.replaced. - VIANNEY. - History of hypertension. - History of hyperlipidemia. - History of atrial fibrillation. - Diabetes type 2. - History of coronary artery disease status post coronary artery bypass graft and percutaneous coronary intervention. - Morbid obesity, body mass index 32.7. - ECHO showed EF 45 to 50% and PAP 57.19 mmHg, m oderate TR and [place]. PLAN: Floor. Will go to Rehab oince approve by INS. Patient is stable from Pulmaonry stand point. Continue to monitor respirat ory status, breathing treatment, oxygen support, and wean the oxygen slowly. Lasix per pay clerk. Follow labs and replace as needed. SCD for DVT prophylaxis. Continue home medication. Glycemic control, Accu-Chek a.c. and at bedtime, sliding scale. Monitor. Consultants: cardiology Code status: full code Plan discussed with: patient, admitting physicia n, consultants, nurse Electronically Signed by Seamus Patel NP on at 0843 RPT #:[id number] END OF REPORT 2021-09-01 08:42:00-00:[address] [facility] ([facility]) Pulmonology Progress Note REPORT#:[id number] REPORT STATUS: Signed DATE:09/01/21 TIME: 0842 PATIENT: OLIVIA MONROY UNIT #: [id number] ROOM/BED: [place] [address] : 48 AGE: 70 SEX: M ATTEND: Mykel Ramos A MD ADM AUTHOR: Seamus Patel REGULATORY COMPLIANCE DIRECTOR * ALL edits or amendments must be made on the [employer]/computer document * Seamus Patel 09/01/21 0842: Subjective Chief complaint: He is breathing better on 2 liter NC. NO CP, fever, chills. NO N/v/D. BP and HR stable. Review of Systems ROS Constitutional: fatigue, generalized weakness. Skin: Denies: bruising, diaphoresis, ecchymosis, itchi ng. Eyes: Denies: discharge, visual loss/blurred, diplopia , eye pain. Respiratory: Reports: CHRISTENSEN (dyspnea on exertion), SOB. Cardiovascular: Denies: edema, orthopnea, palpitations. GI: Denies: abdominal pain, constipation, diarrhea, GERD, hiatal hernia. : Denies: dysuria, flank pain, hematuria, penile d ischarge, penile lesion, testicular pain. Musculoskeletal: Denies: extremity swelling, joint swelling, lumb ar pain, myalgias. Endocrine: Denies: polydipsia, polyphagia, polyuria. Neuro: Denies: bowel dysfunction, c hange in LOC, confusion, dizziness, focal weakness, gait problem, numbness. Objective General VS/I O: Last Documented: Result Date Time Pulse Ox 98 09/02 719 B/P 110/70 09/02 719 B/P Mean 83.0 09/01 07 O2 Delivery Nasal cannula 09/02 719 Temp 36.6 09/02 719 Pulse 77 09/01 07 Resp 14 09/02 719 O2 Flow Rate 2 09/01 0348 FiO2 40 08/29 2106 24 hour I O ending at 0700: 09/01 0700 08/31 1900 Intake Total Output Total 400 150 Balance -400 -150 Number 2 Bowel Movements Number 2 Incontinent Voids Number Voids 1 Output, Urine 400 150 PATIENT WEIGHT: Weight (lb): Weight (oz): Weight (kg): 118.800 Medications: Active Meds + DC'd Last 24 Hrs Torsemide (DEMADEX) 20 MG DAILY PO Potassium Chloride (POTASSIUM CHLORIDE 20MEQ TAB .ER) 20 MEQ ONCE ONE PO (DC) Sodium Chloride (SODIUM CHLORIDE 0.9%) 1,000 ML .Q20H IV (DC) Glipizide (GLUCOTROL) 5 MG AC BK PO Carvedilol (COREG) 6.25 MG BID PO Potassium Chloride (POTASSIUM CHLORIDE 20MEQ TAB .ER) 20 MEQ DAILY PO Magnesium Oxide (MAG-OX 400) 400 MG BID PO Rivaroxaban (XARELTO 20MG) 20 MG DAILY 1700 PO Acetaminophen (TYLENOL) 325 MG Q4H PRN PRN PO Atorvastatin Calcium (LIPITOR) 40 MG 2100 PO Aripiprazole (ABILIFY) 30 MG DAILY PO Aspirin (ASPIRIN) 81 MG DAILY PO Bupropion HCl (WELLBUTRIN) 100 MG QAM PO Albuterol Sulfate (ALBUTEROL SULFATE) 1.25 MG RT Q4H PRN PRN NEB Nutrition assessment: The data set between the solid lines has been im ported from the dietitian's assessment. Any exceptions have been noted under Provider comments. BMI Calculated: 32.7 Nutrition related diagnosis: Nutrition diagnosis details: Nutrition problem: Increased nutrient needs Nutrition etiology: Wound healing Nutrition signs and symptoms: Stage 2 sacrum Nutrition prescription: 1. C ONTINUE DIABETIC DIET TOLERATED. 2. ENCOURAGE PO INTAKE AND HONOR FOOD PREFERANCES. 3. PROVIDE GL UCERNA BID AND WILTON BID TO SUPPLEMENT MEALS AND AID IN WOUND HEALING. Dietitian name: TOD Mcneal Assessment completed: 08/31/21 Provider comments on imported dietitian assessme nt: Physical Exam General appearance: alert, awake, oriented Head/eyes: atraumatic, PERRLA Cardiovascular: normal heart sounds, normal S1/S 2 Respiratory/chest: on oxygen, respiratory distre ss, tachypneic Abdomen: soft, non-tender, no CVA tenderness Genitourinary: no bladder distention, no flank p ain Extremities: no clubbing, no cyanosis, no edema Musculoskeletal: no muscle spasm Neuro/STAFF SUBMARINE W[employer] OFFICER: alert, oriented X 3 Results Findings/Data: Laboratory Tests 08/31/21 1718: [Embedded Image Not Available] Laboratory Tests 09/01 08/31 08/31 08/31 08/31 0718 1957 1718 1607 1145 Chemistry Sodium (134 - 147 mEq/L) 141 Potassium (3.4 - 5.0 mEq/L) 4.0 Chloride (100 - 108 mEq/L) 101 Carbon Dioxide (21 - 33 mEq/l) 36 H Anion Gap (0 - 20) 8 BUN (7 - 18 mg/dL) 29 H Creatinine (0.6 - 1.3 mg/dL) 1.3 Glomerular Filtr Rate (70 - 80) 54.3 L Glucose (70 - 110 mg/dL) 106 POC Glucose (70 - 110 MG/DL) 113 H 101 116 H 14 3 H Calcium (8.0 - 10.5 mg/dL) 10.2 Magnesium (1.80 - 2.40 mg/dL) 2.01 Results: vital signs reviewed, vital signs stabl e, current med profile rev'd Treatment Prophylaxis Treatment Prophylaxis Oxygen: CPAP/BIPAP, nasal cannula Diagnosis, Assessment Plan Hospital course to date: ASSESSMENT: - Acute hypercapnic and hypoxic respiratory fail ure secondary to CHF exacerbation, kgqfn-cw-ggoeorf diastolic dysfunc tion. - Acute congestive heart failure exacerbation, a zvix-do-gjzdbkv. - Hypokalemia.replaced. - VIANNEY. - History of hypertension. - History of hyperlipidemia. - History of atrial fibrillation. - Diabetes type 2. - History of coronary artery disease status post coronary artery bypass graft and percutaneous coronary intervention. - Morbid obesity, body mass index 32.7. - ECHO showed EF 45 to 50% and PAP 57.19 mmHg, m oderate TR and [place]. PLAN: Floor. Will go to Rehab oince approve by INS. Patient is stable from Pulmaonry stand point. Continue to monitor respirat ory status, breathing treatment, oxygen support, and wean the oxygen slowly. Lasix per pay clerk. Follow labs and replace as needed. SCD for DVT prophylaxis. Continue home medication. Glycemic control, Accu-Chek a.c. and at bedtime, sliding scale. Monitor. Consultants: cardiology Code status: full code Plan discussed with: patient, admitting physicia n, consultants, nurse Ava Abarca 09/01/21 1753: Attestations Physician Attestation Agree w/findings plan: Patient seen and examined, c linical data reviewed and I agree with the findings and plan as discussed with and documented by Edwin Patel NP Electronically Signed by Seamus Patel NP on at 0843 Electronically Signed by Ava Abarca MD on 0 09/01/21 at 1753 RPT #:[id number] END OF REPORT 2021-09-01 07:05:00-00:[address] [facility] Adult General Consultation REPORT#:[id number] REPORT STATUS: Signed DATE:09/01/21 TIME: 704 PATIENT: OLIVIA MONROY UNIT #: [id number] ROOM/BED: [place] [address] : 48 AGE: 70 SEX: M ATTEND: Mykel Ramos A MD ADM AUTHOR: Amber Headley * ALL edits or amendments must be made on the [employer]/computer document * History of Present Illness Reason for consult: PMR eval Chief complaint: Debility and hypoxia HPI: 70-year-old male with PMH of CAD, CABG, sleep ap kim, CHF, paroxysmal atrial fibrillation, hypertension, diabetes, HLD, prior COVID infection. Patient was at [facility] and was having [facility] ed shortness of breath and hypoxemia. Chest x-ray consistent with pulmonary edema. Pulmonary was consulted and patient was given IV diuretics. Ca rdiology was also consulted. He currently has significant decline in function and mobility. We were asked to see patient in consultation for physical medicine and rehabilitation evaluation History - Adult longitudinal Past medical history: Reports: Depression/mood disorder, Diabetes emile itus, Hypertension, Dyslipidemia. 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 Alcohol use: Denies EtOH use Drug use: Denies recreational drugs Smoking status: Smoking status for patients 13 years old or old er: Former Smoker Medications: Home Medications: Medication Dose/Rte/Freq Days Qty Entered Last Max Daily Dose Reviewed metFORMIN (GLUCOPHAGE) 1,000 MG PO BID 08/12/20 Strength: 1,000 MG TAB 0001 CARVEDILOL (COREG) 25 MG PO DAILY 08/12/20 Strength: 25 MG TAB 0002 LOSARTAN (COZAAR) 100 MG PO DAILY 08/12/20 Strength: 25 MG TAB 0003 ATORVASTATIN (LIPITOR) 40 MG PO DAILY 08/12/20 Strength: 40 MG TAB 0003 ASPIRIN EC (ECOTRIN) 81 MG PO DAILY 08/12/20 Strength: 81 MG TAB.EC 0003 buPROPion (WELLBUTRIN) 100 MG PO QAM 08/12/20 Strength: 100 MG TAB 0004 ARIPiprazole (ABILIFY) 30 MG PO DAILY 08/12/20 Strength: 30 MG TAB 0005 GABAPENTIN (NEURONTIN) 1,200 MG PO TID 08/12/20 Strength: 400 MG CAP 0005 glipiZIDE (GLUCOTROL) 10 MG PO DAILY 08/12/20 Strength: 10 MG TAB 0005 RIVAROXABAN (XARELTO) 20 MG PO DAILY 1700 30 30 08/24/21 Strength: 20 MG TAB 1438 POTASSIUM CHLORIDE ER 20 MEQ PO DAILY 14 08/24 (KLOR-CON M20) 1438 Strength: 20 MEQ TAB.SR MUPIROCIN 1 APPLIC NASAL BID 10 08/24/21 (BACTROBAN 2%) 1439 Strength: 2 % OINTMENT TORSEMIDE (DEMADEX) 40 MG PO BID 9A 5P 30 120 0 08/25/21 Strength: 20 MG TAB 1015 Current Hospital Medications: Autonomic Drugs Sig/Azalia Start time Last Medication Dose Route Stop Time Status Admin Albuterol Sulfate 1.25 MG RTQ4H PRN PRN 08/22 1 500 AC (ALBUTEROL SULFATE) NEB 09/21 1459 Blood Formation,Coagulation Sig/Azalia Start time Last Medication Dose Route Stop Time Status Admin Rivaroxaban 20 MG DAILY 1700 08/24 1700 AC 08/05 8 (XARELTO 20MG) PO 09/22 1659 1740 Cardiovascular Drugs Sig/Azalia Start time Last Medication Dose Route Stop Time Status Admin Carvedilol 6.25 MG BID 08/29 2100 AC 08/31 (COREG) PO 09/28 Atorvastatin Calcium 40 MG 2100 08/23 2100 AC 0 08/31 (LIPITOR) PO 09/22 Central Nervous System Agents Sig/Azalia Start time Last Medication Dose Route Stop Time Status Admin Acetaminophen 325 MG Q4H PRN PRN 08/24 1500 AC 08/29 (TYLENOL) PO 09/23 1459 2007 Aripiprazole 30 MG DAILY 08/23 0900 AC 08/31 (ABILIFY) PO 09/22 0859 0853 Aspirin 81 MG DAILY 08/23 0900 AC 08/31 (ASPIRIN) PO 09/22 0859 0852 Bupropion HCl 100 MG QAM 08/23 0900 AC 08/31 (WELLBUTRIN) PO 09/22 0859 0852 Electrolytic, Caloric, And Sarah Sig/Azalia Start time Last Medication Dose Route Stop Time Status Admin Torsemide 20 MG DAILY 09/01 0900 AC (DEMADEX) PO 10/01 0859 Potassium Chloride 20 MEQ ONCE ONE 08/31 0930 D C 08/31 (POTASSIUM CHLORIDE PO 08/31 0931 1100 20MEQ TAB.ER) Sodium Chloride 1,000 ML .Q20H 08/31 0815 DC (SODIUM CHLORIDE IV 08/31 1314 0856 0.9%) Torsemide 40 MG DAILY 08/30 0900 DC 08/30 (DEMADEX) PO 09/29 0859 1040 Potassium Chloride 20 MEQ DAILY 08/28 0926 AC 0 08/31 (POTASSIUM CHLORIDE PO 09/27 0925 0853 20MEQ TAB.ER) Gastrointestinal Drugs Sig/Azalia Start time Last Medication Dose Route Stop Time Status Admin Magnesium Oxide 400 MG BID 08/24 2100 AC 08/31 (MAG-OX 400) PO 09/23 Hormones And Synthetic Substit Sig/Azalia Start time Last Medication Dose Route Stop Time Status Admin Glipizide 5 MG AC BK 08/30 1200 AC 08/31 (GLUCOTROL) PO 09/29 1159 0852 Allergies: Coded Allergies: No Known Allergies (08/12/20) Review of Systems Constitutional: generalized weakness. Respiratory: Reports: CHRISTENSEN (dyspnea on exertion). Cardiovascular: Denies: chest pain, palpitations. All systems rev neg: except as marked Objective VS/I O: Last Documented: Result Date Time Pulse Ox 98 09/01 0416 B/P 130/85 09/01 0416 B/P Mean 99.8 09/016 Temp 97.5 09/016 Pulse 82 09/01 0416 Resp 16 09/01 041 O2 Delivery Nasal cannula 09/02 347 O2 Flow Rate 2 09/02 347 FiO2 40 08/29 2106 24 hour I O ending at 0700: 09/01 0700 08/31 1900 Intake Total Output Total 400 150 Balance -400 -150 Number 2 Bowel Movements Number 2 Incontinent Voids Number Voids 1 Output, Urine 400 150 PATIENT WEIGHT: Weight (lb): Weight (oz): Weight (kg): 118.800 General appearance: obese, alert, awake Head/Eyes: atraumatic, clear cornea, EOMI ENT: normal dentition, normal ear left, normal e ar right, normal nose Neck: full range of motion, non-tender Cardiovascular: irregularly irregular, no murmur Respiratory: decreased breath sounds Abdomen: soft, non-tender, no guarding, no rebou nd Genitourinary: not indicated Extremities: moves all, no edema, no clubbing, n o cyanosis Musculoskeletal: full range of motion, normal in spection Neuro/STAFF SUBMARINE WARFARE OFFICER: alert, oriented X 3 Skin: intact, no rash Lymphatics: no lymphadenopathy Psychiatry: normal judgment/insight, normal mood Results Findings/Data: Laboratory Tests: 08/31 1718 1607 1145 0734 Chemistry Sodium (134 - 147 mEq/L) 141 Potassium (3.4 - 5.0 mEq/L) 4.0 Chloride (100 - 108 mEq/L) 101 Carbon Dioxide (21 - 33 mEq/l) 36 H Anion Gap (0 - 20) 8 BUN (7 - 18 mg/dL) 29 H Creatinine (0.6 - 1.3 mg/dL) 1.3 Glomerular Filtr Rate (70 - 80) 54.3 L Glucose (70 - 110 mg/dL) 106 POC Glucose (70 - 110 MG/DL) 101 116 H 143 H 11 4 H Calcium (8.0 - 10.5 mg/dL) 10.2 Magnesium (1.80 - 2.40 mg/dL) 2.01 Diagnosis, Assessment Plan Free Text DxA P Notes Free Text DxA P Notes: Generalized weakness Deconditioning Impaired mobility and gait Acute respiratory failure with hypoxia Paroxysmal atrial fibrillation Acute on chronic systolic CHF Uncontrolled diabetes type 2 CKD stage III Plan: Continue PT/OT Out of bed to chair Work on strength, bed mobility, transfers, gait Increase endurance Fall precautions Monitor p.o. intake and nutrition Strict decubitus precautions Advance therapies as tolerated Waiting to hear back from [place] if patient will be allowed to go to [facility] rehab. Thank you for referral Electronically Signed by Amber Headley on 0 09/01/21 at 1926 RPT #:[id number] END OF REPORT 2021-08-31 13:22:00-00:00 [facility] Internal Medicine Prog. Note REPORT#:[id number] REPORT STATUS: Signed DATE:08/31/21 TIME: 1322 PATIENT: OLIVIA MONROY UNIT #: [id number] ROOM/BED: [place] [address] : 48 AGE: 70 SEX: M ATTEND: Mary Ramos MD ADM AUTHOR: Benedicto Ramos MD * ALL edits or amendments must be made on the [employer]/computer document * Subjective Chief complaint: None Objective General Medications: Active Meds + DC'd Last 24 Hrs Torsemide (DEMADEX) 20 MG DAILY PO Potassium Chloride (POTASSIUM CHLORIDE 20MEQ TAB .ER) 20 MEQ ONCE ONE PO (DC) Sodium Chloride (SODIUM CHLORIDE 0.9%) 1,000 ML .Q20H IV (DC) Glipizide (GLUCOTROL) 5 MG AC BK PO Torsemide (DEMADEX) 40 MG DAILY PO (DC) Carvedilol (COREG) 6.25 MG BID PO Potassium Chloride (POTASSIUM CHLORIDE 20MEQ TAB .ER) 20 MEQ DAILY PO Magnesium Oxide (MAG-OX 400) 400 MG BID PO Rivaroxaban (XARELTO 20MG) 20 MG DAILY 1700 PO Acetaminophen (TYLENOL) 325 MG Q4H PRN PRN PO Atorvastatin Calcium (LIPITOR) 40 MG 2100 PO Aripiprazole (ABILIFY) 30 MG DAILY PO Aspirin (ASPIRIN) 81 MG DAILY PO Bupropion HCl (WELLBUTRIN) 100 MG QAM PO Albuterol Sulfate (ALBUTEROL SULFATE) 1.25 MG RT Q4H PRN PRN NEB Physical Exam General appearance: alert, awake, oriented Cardiovascular: irregularly irregular Respiratory: aerating well, clear to auscultatio n Abdomen: soft, no distention Extremities: Extremities: no edema Results Findings/Data: Laboratory Tests 08/31/21 0420: [Embedded Image Not Available] Laboratory Tests 08/31 08/31 08/31 08/30 08/30 1145 0734 0420 6 1951 Chemistry Sodium (134 - 147 mEq/L) 142 Potassium (3.4 - 5.0 mEq/L) 3.3 L Chloride (100 - 108 mEq/L) 101 Carbon Dioxide (21 - 33 mEq/l) 37 H Anion Gap (0 - 20) 8 BUN (7 - 18 mg/dL) 32 H Creatinine (0.6 - 1.3 mg/dL) 1.5 H Glomerular Filtr Rate (70 - 80) 46.0 L Glucose (70 - 110 mg/dL) 102 POC Glucose (70 - 110 MG/DL) 143 H 114 H 102 85 Calcium (8.0 - 10.5 mg/dL) 10.1 08/30 1741 Chemistry POC Glucose (70 - 110 MG/DL) 77 Diagnosis, Assessment Plan Problem List/A P: 1. Acute respiratory failure with hypoxia 2. Paroxysmal atrial fibrillation 3. NORRIS (obstructive sleep apnea) 4. Acute on chronic systolic CHF (congestive he art failure), NYHA class 1 5. Uncontrolled type 2 diabetes mellitus with c hronic kidney disease 6. CKD stage 3 due to type 2 diabetes mellitus Orders: Continue Torsemide On Glucoptrol,ADA,renal diet,bs ac/hs On Xarelto,Coreg Albuterol PRN,oxygen PT/OT Procedure Date/time Status THER ACTIVIT DIR 15 MIN 08/31 1228 Active FUNCTIONAL TRAINING 08/31 1136 Active OXYGEN PER HOUR 08/31 0010 Complete Consultants: cardiology Electronically Signed by Benedicto Ramos MD on 0 08/31/21 at 1324 RPT #:[id number] END OF REPORT 2021-08-31 09:20:00-00:[address] [facility] ([facility]) Pulmonology Progress Note REPORT#:[id number] REPORT STATUS: Signed DATE:08/31/21 TIME: 919 PATIENT: OLIVIA MONROY UNIT #: [id number] ROOM/BED: [place] [address] : 48 AGE: 70 SEX: M ATTEND: Mykel Ramos is A MD ADM AUTHOR: Seamus Patel REGULATORY COMPLIANCE DIRECTOR * ALL edits or amendments must be made on the [employer]/computer document * Seamus Patel 08/31/21 0920: Subjective Chief complaint: He is doing better. On 2 liter NC. His breathing improved. NO CP, fever, chills. NO N/v/D. BP and HR stable. Review of Systems ROS Constitutional: fatigue, generalized weakness. Skin: Denies: bruising, diaphoresis, ecchymosis, itchi ng. Eyes: Denies: discharge, visual loss/blurred, diplopia , eye pain. Respiratory: Reports: CHRISTENSEN (dyspnea on exertion), SOB. Cardiovascular: Denies: edema, orthopnea, palpitations. GI: Denies: abdominal pain, constipation, diarrhea, GERD, hiatal hernia. : Denies: dysuria, flank pain, hematuria, penile d ischarge, penile lesion, testicular pain. Musculoskeletal: Denies: extremity swelling, joint swelling, lumb ar pain, myalgias. Endocrine: Denies: polydipsia, polyphagia, polyuria. Neuro: Denies: bowel dysfunction, c hange in LOC, confusion, dizziness, focal weakness, gait problem, numbness. Objective General VS/I O: Last Documented: Result Date Time Pulse Ox 96 08/31 738 B/P 117/70 08/31 738 B/P Mean 85.5 08/31 738 O2 Delivery Nasal cannula 08/31 738 Temp 36.5 08/31 738 Pulse 82 08/31 738 Resp 12 08/31 738 O2 Flow Rate 2 08/31 737 FiO2 40 08/29 2106 24 hour I O ending at 0700: 08/31 0700 08/30 1900 Intake Total Output Total 1600 Balance -1600 Number Voids 2 Output, Urine 1600 PATIENT WEIGHT: Weight (lb): Weight (oz): Weight (kg): 118.800 Medications: Active Meds + DC'd Last 24 Hrs Torsemide (DEMADEX) 20 MG DAILY PO Sodium Chloride (SODIUM CHLORIDE 0.9%) 1,000 ML .Q20H IV Glipizide (GLUCOTROL) 5 MG AC BK PO Torsemide (DEMADEX) 40 MG DAILY PO (DC) Carvedilol (COREG) 6.25 MG BID PO Potassium Chloride (POTASSIUM CHLORIDE 20MEQ TAB .ER) 20 MEQ DAILY PO Magnesium Oxide (MAG-OX 400) 400 MG BID PO Rivaroxaban (XARELTO 20MG) 20 MG DAILY 1700 PO Acetaminophen (TYLENOL) 325 MG Q4H PRN PRN PO Atorvastatin Calcium (LIPITOR) 40 MG 2100 PO Aripiprazole (ABILIFY) 30 MG DAILY PO Aspirin (ASPIRIN) 81 MG DAILY PO Bupropion HCl (WELLBUTRIN) 100 MG QAM PO Glipizide (GLUCOTROL) 10 MG DAILY PO (DC) Albuterol Sulfate (ALBUTEROL SULFATE) 1.25 MG RT Q4H PRN PRN NEB Nutrition assessment: The data set between the solid lines has been im ported from the dietitian's assessment. Any exceptions have been noted under Provider comments. BMI Calculated: 32.7 Nutrition related diagnosis: Nutrition diagnosis details: Nutrition problem: Increased nutrient needs Nutrition etiology: Wound healing Nutrition signs and symptoms: Stage 2 sacrum Nutrition prescription: 1. C ONTINUE DIABETIC DIET TOLERATED. 2. ENCOURAGE PO INTAKE AND HONOR FOOD PREFERANCES. 3. PROVIDE GL UCERNA BID AND WILTON BID TO SUPPLEMENT MEALS AND AID IN WOUND HEALING. Dietitian name: Lea Gonsalves, DIET RAILROAD INSPECTOR Assessment completed: 08/24/21 Provider comments on imported dietitian assessme nt: Physical Exam General appearance: alert, awake, oriented Head/eyes: atraumatic, PERRLA Cardiovascular: normal heart sounds, normal S1/S 2 Respiratory/chest: on oxygen, respiratory distre ss, tachypneic Abdomen: soft, non-tender, no CVA tenderness Genitourinary: no bladder distention, no flank p ain Extremities: no clubbing, no cyanosis, no edema Musculoskeletal: no muscle spasm Neuro/STAFF SUBMARINE WARFARE OFFICER: alert, oriented X 3 Results Findings/Data: Laboratory Tests 08/31/21 0420: [Embedded Image Not Available] Laboratory Tests 08/31 08/31 08/30 08/30 08/30 0734 0420 2056 1952 1741 Chemistry Sodium (134 - 147 mEq/L) 142 Potassium (3.4 - 5.0 mEq/L) 3.3 L Chloride (100 - 108 mEq/L) 101 Carbon Dioxide (21 - 33 mEq/l) 37 H Anion Gap (0 - 20) 8 BUN (7 - 18 mg/dL) 32 H Creatinine (0.6 - 1.3 mg/dL) 1.5 H Glomerular Filtr Rate (70 - 80) 46.0 L Glucose (70 - 110 mg/dL) 102 POC Glucose (70 - 110 MG/DL) 114 H 102 85 77 Calcium (8.0 - 10.5 mg/dL) 10.1 08/30 1153 Chemistry POC Glucose (70 - 110 MG/DL) 170 H Results: labs reviewed, vital signs reviewed, cu rrent med profile rev'd Treatment Prophylaxis Treatment Prophylaxis Oxygen: CPAP/BIPAP, nasal cannula Diagnosis, Assessment Plan Hospital course to date: ASSESSMENT: - Acute hypercapnic and hypoxic respiratory fail ure secondary to CHF exacerbation, [id number] diastolic dysfunc tion. - Acute congestive heart failure exacerbation, a [id number]. - Hypokalemia.- K 3.3. - VIANNEY. - History of hypertension. - History of hyperlipidemia. - History of atrial fibrillation. - Diabetes type 2. - History of coronary artery disease status post coronary artery bypass graft and percutaneous coronary intervention. - Morbid obesity, body mass index 32.7. - ECHO showed EF 45 to 50% and PAP 57.19 mmHg, m oderate TR and [place]. PLAN: Floor. Will replace K. Will continue to monitor res piratory status, breathing treatment, oxygen support , and wean the oxygen slowly. Lasix per pay clerk. Follow labs and replace as needed. SCD for DVT prophylaxis. Continue home medication. Glycemic control, Accu-Chek a.c. and at bedtime, sliding scale. Monitor. Consultants: cardiology Code status: full code Plan discussed with: patient, admitting physicia n, consultants, nurse Ava Abarca 08/31/21 2248: Attestations Physician Attestation Agree w/findings plan: Patient seen and examined, c linical data reviewed and I agree with the findings and plan as discussed with and documented by Edwin Patel NP Electronically Signed by Seamus Patel NP on at 0921 Electronically Signed by Ava Abarca MD on 0 08/31/21 at 2249 RPT #:[id number] END OF REPORT 2021-08-31 08:12:00-00:[address] [facility] Cardiology Progress Note REPORT#:[id number] REPORT STATUS: Signed DATE:08/31/21 TIME: 811 PATIENT: OLIVIA MONROY UNIT #: [id number] ROOM/BED: [place] [address] : 48 AGE: 70 SEX: M ATTEND: Mykel Ramos A MD ADM AUTHOR: Vinny Chou MD * ALL edits or amendments must be made on the [employer]/computer document * Subjective Chief complaint: SOB Free Text Subj Notes Free Text Subj Notes: Doing well, eating breakfast. Creatinine fluctua oziel up again. Has gotten breakfast this AM denies sob or cp. Objective General VS/I O: 24 hour I O ending at 0700: 08/31 0700 08/30 190 Intake Total Output Total 1600 Balance -1600 Number Voids 2 Output, Urine 1600 Vital Signs: Date Time Temp Pulse Resp B/P B/P Pulse O2 O2 F low FiO2 Mean Ox Delivery Rate 08/31 0739 97.7 82 12 117/70 85.5 96 Nasal cannula 08/31 0738 Nasal 2 cannula 08/31 0454 97.3 83 18 135/85 101.5 99 Nasal 1. 50 cannula 08/31 0038 97 Nasal 2 cannula 08/31 0038 98.1 99 20 103/60 74.6 97 Nasal 1.50 cannula 08/30 2053 97.9 85 20 120/78 92.3 99 Nasal 1.50 cannula 08/30 1900 96 20 137/80 102 100 08/30 1800 79 20 139/63 91 100 08/30 1740 97.5 80 21 148/70 0.0 97 08/30 1700 69 19 129/58 84 97 08/30 1633 Nasal 3 cannula 08/30 1600 97.5 80 18 123/74 90 100 High flow 2 nasal cannula 08/30 1600 80 18 123/74 92 100 08/30 1500 79 22 109/60 79 98 08/30 1400 97 18 112/67 81 100 08/30 1300 88 20 127/72 89 100 08/30 1200 98.1 79 19 121/57 78 100 High flow 2 nasal cannula 08/30 1200 79 19 121/57 82 100 08/30 1154 97.7 79 19 126/69 0.0 100 08/30 1100 93 24 124/77 93 100 08/30 1000 91 16 131/67 91 100 08/30 0901 101 16 123/56 80 100 PATIENT WEIGHT: Weight (lb): Weight (oz): Weight (kg): 118.800 Medications: Active Meds + DC'd Last 24 Hrs Torsemide (DEMADEX) 20 MG DAILY PO (UNV) Sodium Chloride (SODIUM CHLORIDE 0.9%) 1,000 ML .Q20H IV (UNV) Glipizide (GLUCOTROL) 5 MG AC BK PO Torsemide (DEMADEX) 40 MG DAILY PO (DC) Carvedilol (COREG) 6.25 MG BID PO Potassium Chloride (POTASSIUM CHLORIDE 20MEQ TAB .ER) 20 MEQ DAILY PO Magnesium Oxide (MAG-OX 400) 400 MG BID PO Rivaroxaban (XARELTO 20MG) 20 MG DAILY 1700 PO Acetaminophen (TYLENOL) 325 MG Q4H PRN PRN PO Atorvastatin Calcium (LIPITOR) 40 MG 2100 PO Aripiprazole (ABILIFY) 30 MG DAILY PO Aspirin (ASPIRIN) 81 MG DAILY PO Bupropion HCl (WELLBUTRIN) 100 MG QAM PO Glipizide (GLUCOTROL) 10 MG DAILY PO (DC) Albuterol Sulfate (ALBUTEROL SULFATE) 1.25 MG RT Q4H PRN PRN NEB Physical Exam General appearance: alert, awake, no acute distr ess Head/Eyes: atraumatic, normal conjunctiva/sclera , normocephalic ENT: moist mucosal membranes, normal pharynx Neck: full range of motion, supple/no meningismu s Cardiovascular: CV assessment: ectopy, irregular rhythm, irregu larly irregular Murmur assessment: 2/6 sm Respiratory: decreased breath sounds, on oxygen, no distress Abdomen: soft, non-tender, no distention Upper extremity: UE assessment: normal temperature, no clubbing, no cyanosis Lower extremity: LE assessment: edema, normal temperature, no cl ubbing, no cyanosis Musculoskeletal: full range of motion, normal in spection Neuro/STAFF SUBMARINE WARF[employer] OFFICER: alert, normal speech Skin: poor skin turgor, dry Results Findings/Data: Laboratory Tests 08/31 08/31 08/30 08/30 08/30 0734 0420 6 1952 1741 Chemistry Sodium (134 - 147 mEq/L) 142 Potassium (3.4 - 5.0 mEq/L) 3.3 L Chloride (100 - 108 mEq/L) 101 Carbon Dioxide (21 - 33 mEq/l) 37 H Anion Gap (0 - 20) 8 BUN (7 - 18 mg/dL) 32 H Creatinine (0.6 - 1.3 mg/dL) 1.5 H Glomerular Filtr Rate (70 - 80) 46.0 L Glucose (70 - 110 mg/dL) 102 POC Glucose (70 - 110 MG/DL) 114 H 102 85 77 Calcium (8.0 - 10.5 mg/dL) 10.1 08/30 1153 Chemistry POC Glucose (70 - 110 MG/DL) 170 H Results: labs reviewed, rhythm personally rev'd, current med profile rev'd Diagnosis, Assessment Plan Consultants: cardiology Free Text DxA P Notes Free Text DxA P Notes: 1. Acute congestive heart failure 2. Coronary atherosclerosis with prior CABG and prior PCI 3. Accelerated hypertension 4. Adult failure to thrive - prior prolonged hos pitalization 5. Diabetes mellitus 6. Normocytic anemia 7. Paroxysmal afib 8. 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 We will g et echo. Place on IV lasix to diurese and use BIPAP as well. Serial troponin i s negative. This does not represent ACS situation but rather likely an acute HF exacerbation. He will need to be put on higher maintena nce dose at discharge. For now, we know that he has prior 3vCABG per report as pancho jewell as prior remote PCI. is a big proponent for [facility] system for cardiac care and only want s cardiologists who have privileges there. For now, pancho wise will give him IV lasix and get the echo to see if any new systolic dysfunction has occurre d. Further recommendations after that. Monitor on telemetry, appears to be at s inus rhythm on admission. Need to have RN reconcile medications. Ne ed to see what the HGb trends, compared to last year is significantly reduced, but has recent chronic prolonged hospitalization, likely component anemia of chronic disease. 08/23/2021 Awaiting echocardiogram. He has been receiving I V Lasix 80 mg twice daily. He received a dose of 80 in the afternoon y and another one just now this morning. Prior to that I believe that he received about 60 mg in the emergency department yesterday. Per nursing report they at tempted to put a condom catheter however several sizes did not f it adequately. Also per nursing he has urinated in the bed several times. Thus it is mallory rd to know how well he is urinating. Obtain chest x-ray tomorrow. He repor ts that his breathing status is improved overall. Still on significant oxygen . They report no recent PCI. They also report that the patient was on Xarelto . As such we will see about starting that and discontinuing either t he aspirin or the Plavix. As such, we will also need to monitor that hemoglobin. 08/24/2021 The patient has LVEF in the upper 40's, wall motion indicative and suggestive of prior CABG and prior scarrin g in certain areas. In either case, volume status is improving. He is now on Xare lto - no Hgb yet this AM. Also no labs yet this AM. He is on IV lasix, oxygen sats improving and venkat mooreg down the oxygen. We will see if we can transition him to orals tomorrow. Plavix has been discontinued as well. Spoke with on the phone today to cristian barajas her [phone]. 08/25/2021 Some tachycardia on telemetry, oxygen requiremen ts improving, feeling better. Some hypertensive values. We will increase the beta mariaa dose. The xarelto is being tolerated. We will als o increase potassium and magnesium standing orders. On torsemide currently. Keishaashish huynh overall - may require dose adjustment downwards after several days if he is still diuresing nice ly on this oral regimen. 08/26/2021 Change metoprolol to carvedilol for improved blo od pressure control. We will see about giving him metolazone. Obtain electrol ytes. Obtain hemoglobin. Obtain magnesium. Continue to monitor. We will a lso get chest x-ray. Oxygen requirements improving yet still there. 08/27/2021 Patient is laying flat. On 6 L however nasal can nula is not quite in his nose and he is satting 100%. Chest x-ray is o verall improved. Still with little bit of volume. We will give another dose of metolazo ne today. Continue to monitor otherwise. Order electrolytes. 08/28/2021 Getting a little dry. Some borderline blood pres sure. Hold the beta-mariaa this morning. Give a little bit of fluid back. D rop the torsemide to daily starting day after tomorrow if recovering nicely. Stop metolazone, has not been given yesterday or today due to borderline blood pressure. Hold the ARB and beta-mariaa for parameters. 08/29/2021 Creatinine at 1.6 today, 1.5 yesterday, but BUN less than yesterday. Given some fluids yesterday, likely cony teau effect, expect lowering tomorrow hopefully. BP more robust now compared to yesterday after given some fluid back, HR around 100 or less, afib. Give diuretic holiday today. Preliminary schedule torsemide 40 mg once daily to resume tomorrow. Resume the beta b locker. Continue to keep the losartan 100 mg held until the creatinine downtr ends for 2 days. If he discharges, needs a creatinine check within next few days at next facility he goes to. 08/30/2021 Creatinine much improved. Vitals good. HR contro l. On lower dose maintenance torsemide. Diuresed well. Ov erall doing much better. Losartan held. From cardiac standpoint, he is ready to move on from the [facility] setting. Overall better today. 08/31/2021 His overall fluid and volume status is tricky. Again creatinine is up. Will hold today diuretic, yesterday he was resumed on lower total dose of only torsemide 40 mg once daily from BID. Will change the maint enance diuretic down to torsemide 20 mg daily but give him diuretic holi day today with a bit of fluid back today. Electronically Signed by Vinny Chou MD on at 0814 RPT #:[id number] END OF REPORT 2021-08-30 14:03:00-00:00 [facility] Internal Medicine Prog. Note REPORT#:[id number] REPORT STATUS: Signed DATE:08/30/21 TIME: 1402 PATIENT: OLIVIA MONROY UNIT #: [id number] ROOM/BED: [place] [id number] : 48 AGE: 70 SEX: M ATTEND: Mykel Ramos MD ADM AUTHOR: Benedicto Ramos MD * ALL edits or amendments must be made on the [employer]/computer document * Subjective Chief complaint: He is 2 liter NC. His breathing improved. NO CP, fever, chills. NO N/v/D. BP and HR stable. Review of Systems All systems rev neg: except as marked Objective General VS/I O: Vital Signs Date Temp Pulse Resp B/P B/P Mean Pulse Ox FiO2 08/29-08/30 36.5-37.1 79-115 12-36 113-159/54-93 0.0-121 93-100 21-40 Last Documented: Result Date Time Pulse Ox 100 08/30 1200 B/P 121/57 08/30 1200 B/P Mean 82 08/30 1200 Pulse 79 08/30 1200 Resp 19 08/30 1200 Temp 36.5 08/30 1154 O2 Delivery Nasal cannula 08/30 0755 O2 Flow Rate 3 08/30 0755 FiO2 40 08/29 2106 24 hour I O ending at 0700: 08/30 0700 08/29 1900 Intake Total 290 Output Total 750 750 Balance -460 -750 Intake, Oral 290 Number 1 Bowel Movements Number Voids 4 Output, Urine 750 750 PATIENT WEIGHT: Weight (lb): Weight (oz): Weight (kg): 118.800 Medications: Active Meds + DC'd Last 24 Hrs Glipizide (GLUCOTROL) 5 MG AC BK PO Torsemide (DEMADEX) 40 MG DAILY PO Carvedilol (COREG) 6.25 MG BID PO Potassium Chloride (POTASSIUM CHLORIDE 20MEQ TAB .ER) 20 MEQ DAILY PO Magnesium Oxide (MAG-OX 400) 400 MG BID PO Rivaroxaban (XARELTO 20MG) 20 MG DAILY 1700 PO Acetaminophen (TYLENOL) 325 MG Q4H PRN PRN PO Atorvastatin Calcium (LIPITOR) 40 MG 2100 PO Aripiprazole (ABILIFY) 30 MG DAILY PO Aspirin (ASPIRIN) 81 MG DAILY PO Bupropion HCl (WELLBUTRIN) 100 MG QAM PO Glipizide (GLUCOTROL) 10 MG DAILY PO (DC) Albuterol Sulfate (ALBUTEROL SULFATE) 1.25 MG RT Q4H PRN PRN NEB Physical Exam General appearance: alert, awake, oriented Head/Eyes: atraumatic, EOMI ENT: moist mucosal membranes Neck: full range of motion, non-tender Cardiovascular: irregularly irregular, normal he art sounds Respiratory: crackles, on oxygen, symmetric expa nsion Abdomen: non-tender, normal bowel sounds, soft Extremities: Extremities: edema Musculoskeletal: full range of motion, normal in spection Neuro/STAFF SUBMARINE WARF[employer] OFFICER: alert, oriented x 3 Psychiatry: normal affect, normal judgement/insi ght, normal mood Results Findings/Data: Laboratory Tests 08/30/21 0437: [Embedded Image Not Available] Laboratory Tests 08/30 08/30 08/30 08/29 08/29 1153 0719 0437 1942 1616 Chemistry Sodium (134 - 147 mEq/L) 143 Potassium (3.4 - 5.0 mEq/L) 3.6 Chloride (100 - 108 mEq/L) 103 Carbon Dioxide (21 - 33 mEq/l) 34 H Anion Gap (0 - 20) 10 BUN (7 - 18 mg/dL) 28 H Creatinine (0.6 - 1.3 mg/dL) 1.1 Glomerular Filtr Rate (70 - 80) 65.8 L Glucose (70 - 110 mg/dL) 115 H POC Glucose (70 - 110 MG/DL) 170 H 130 H 135 H 116 H Calcium (8.0 - 10.5 mg/dL) 10.4 Diagnosis, Assessment Plan Problem List/A P: 1. Acute respiratory failure with hypoxia 2. Paroxysmal atrial fibrillation 3. NORRIS (obstructive sleep apnea) 4. Acute on chronic systolic CHF (congestive he art failure), NYHA class 1 5. Uncontrolled type 2 diabetes mellitus with c hronic kidney disease 6. CKD stage 3 due to type 2 diabetes mellitus Orders: Continue Torsemide On Coreg,Xarelto On Glipizide,ADA,renal diet,bs ac/hs Awaiting approval to go to vs SNF Procedure Date/time Status OXYGEN PER HOUR 08/30 1203 Complete FUNCTIONAL TRAINING 08/30 1152 Active Electronically Signed by Benedicto Ramos MD on 0 08/30/21 at 1406 [facility] #:[id number] END OF REPORT 2021-08-30 10:45:00-00:[address] [facility] Cardiology Progress Note REPORT#:[id number] REPORT STATUS: Signed DATE:08/30/21 TIME: 1045 PATIENT: OLIVIA MONROY UNIT #: [id number] ROOM/BED: [place] [id number] : 48 AGE: 70 SEX: M ATTEND: Mykel Ramos is A ADM AUTHOR: Vinny Chou MD * ALL edits or amendments must be made on the el [employer]/computer document * Subjective Chief complaint: SOB Free Text Subj Notes Free Text Subj Notes: Patient doing much better, thin legs, laying fla t, not SOB. Creatinine noted, much improved. Objective General VS/I O: 24 hour I O ending at 0700: 08/30 0700 08/29 1900 Intake Total 290 Output Total 750 750 Balance -460 -750 Intake, Oral 290 Number 1 Bowel Movements Number Voids 4 Output, Urine 750 750 Vital Signs: Date Time Temp Pulse Resp B/P B/P Pulse O2 O2 F low FiO2 Mean Ox Delivery Rate 08/30 0755 100 Nasal 3 cannula 08/30 0719 97.7 97 18 136/60 0.0 100 08/30 0600 90 16 137/64 90 100 08/30 0501 100 20 113/55 79 08/30 0401 115 36 153/76 106 94 08/30 0307 98.4 08/30 0300 80 12 131/65 91 97 08/30 0200 93 14 134/60 87 96 08/30 0103 101 21 121/67 85 95 08/30 0048 98.1 08/30 0000 103 17 124/72 90 100 08/29 2336 100 Nasal 3 cannula 08/29 2312 97.7 08/29 2310 101 12 121/66 85 97 08/29 2201 99 14 118/57 82 100 08/29 2106 98 99 40 08/29 210 102 17 128/60 85 94 08/29 2001 Nasal 3 cannula 08/30 1999 107 17 128/75 97 95 08/29 1925 94 Room air 21 08/29 1910 98.1 08/29 1901 102 17 119/54 78 93 08/29 1653 98.7 08/29 1616 100 27 159/93 121 93 08/29 1528 101 21 131/61 88 95 08/29 1500 107 34 96 08/29 1300 98 151/78 107 95 08/29 1201 104 143/71 100 91 08/29 1200 98.2 08/29 1142 97.8 101 20 145/70 95 96 Room air 08/29 1101 100 145/70 98 93 PATIENT WEIGHT: Weight (lb): Weight (oz): Weight (kg): 118.800 Medications: Active Meds + DC'd Last 24 Hrs Torsemide (DEMADEX) 40 MG DAILY PO Carvedilol (COREG) 6.25 MG BID PO Potassium Chloride (POTASSIUM CHLORIDE 20MEQ TAB .ER) 20 MEQ DAILY PO Magnesium Oxide (MAG-OX 400) 400 MG BID PO Rivaroxaban (XARELTO 20MG) 20 MG DAILY 1700 PO Acetaminophen (TYLENOL) 325 MG Q4H PRN PRN PO Atorvastatin Calcium (LIPITOR) 40 MG 2100 PO Aripiprazole (ABILIFY) 30 MG DAILY PO Aspirin (ASPIRIN) 81 MG DAILY PO Bupropion HCl (WELLBUTRIN) 100 MG QAM PO Glipizide (GLUCOTROL) 10 MG DAILY PO (r) Albuterol Sulfate (ALBUTEROL SULFATE) 1.25 MG RT Q4H PRN PRN NEB Physical Exam General appearance: alert, awake, no acute distr ess Head/Eyes: atraumatic, normal conjunctiva/sclera , normocephalic ENT: moist mucosal membranes, normal pharynx Neck: full range of motion, supple/no meningismu s Cardiovascular: CV assessment: ectopy, irregular rhythm, irregu larly irregular Murmur assessment: 2/6 sm Respiratory: decreased breath sounds, on oxygen, no distress Abdomen: soft, non-tender, no distention Upper extremity: UE assessment: normal temperature, no clubbing, no cyanosis Lower extremity: LE assessment: edema, normal temperature, no cl ubbing, no cyanosis Musculoskeletal: full range of motion, normal in spection Neuro/STAFF SUBMARINE WARF[employer] OFFICER: alert, normal speech Skin: poor skin turgor, dry Results Findings/Data: Laboratory Tests 08/30 08/30 08/29 08/29 08/29 0719 0437 1942 1616 1140 Chemistry Sodium (134 - 147 mEq/L) 143 Potassium (3.4 - 5.0 mEq/L) 3.6 Chloride (100 - 108 mEq/L) 103 Carbon Dioxide (21 - 33 mEq/l) 34 H Anion Gap (0 - 20) 10 BUN (7 - 18 mg/dL) 28 H Creatinine (0.6 - 1.3 mg/dL) 1.1 Glomerular Filtr Rate (70 - 80) 65.8 L Glucose (70 - 110 mg/dL) 115 H POC Glucose (70 - 110 MG/DL) 130 H 135 H 116 H 150 H Calcium (8.0 - 10.5 mg/dL) 10.4 Results: labs reviewed, vital signs revi ewed, rhythm personally rev'd, current med profile rev'd Diagnosis, Assessment Plan Consultants: cardiology Free Text DxA P Notes Free Text DxA P Notes: 1. Acute congestive heart failure 2. Coronary atherosclerosis with prior CABG and prior PCI 3. Accelerated hypertension 4. Adult failure to thrive - prior prolonged hos pitalization 5. Diabetes mellitus 6. Normocytic anemia 7. Paroxysmal afib 8. 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 We will g et echo. Place on IV lasix to diurese and use BIPAP as well. Serial troponin i s negative. This does not represent ACS situation but rather likely an acute HF exacerbation. He will need to be put on higher maintena nce dose at discharge. For now, we know that he has prior 3vCABG per report as pancho jewell as prior remote PCI. is a big proponent for [facility] system for cardiac care and only want s cardiologists who have privileges there. For now, pancho wise will give him IV lasix and get the echo to see if any new systolic dysfunction has occurre d. Further recommendations after that. Monitor on telemetry, appears to be at s inus rhythm on admission. Need to have RN reconcile medications. Ne ed to see what the HGb trends, compared to last year is significantly reduced, but has recent chronic prolonged hospitalization, likely component anemia of chronic disease. 08/23/2021 Awaiting echocardiogram. He has been receiving I V Lasix 80 mg twice daily. He received a dose of 80 in the afternoon y and another one just now this morning. Prior to that I believe that he received about 60 mg in the emergency department yesterday. Per nursing report they at tempted to put a condom catheter however several sizes did not f it adequately. Also per nursing he has urinated in the bed several times. Thus it is mallory rd to know how well he is urinating. Obtain chest x-ray tomorrow. He repor ts that his breathing status is improved overall. Still on significant oxygen . They report no recent PCI. They also report that the patient was on Xarelto . As such we will see about starting that and discontinuing either the aspir in or the Plavix. As such, we will also need to monitor that hemoglobin. 08/24/2021 The patient has LVEF in the upper 40's, wall motion indicative and suggestive of prior CABG and prior scarrin g in certain areas. In either case, volume status is improving. He is now on Xare lto - no Hgb yet this AM. Also no labs yet this AM. He is on IV lasix, oxygen sats improving and venkat branden down the oxygen. We will see if we can transition him to orals tomorrow. Plavix has been discontinued as well. Spoke with on the phone today to cristian barajas her [phone]. 08/25/2021 Some tachycardia on telemetry, oxygen requiremen ts improving, feeling better. Some hypertensive values. We will increase the beta mariaa dose. The xarelto is being tolerated. We will als o increase potassium and magnesium standing orders. On torsemide currently. Keisha tor overall - may require dose adjustment downwards after several days if he is still diuresing nice ly on this oral regimen. 08/26/2021 Change metoprolol to carvedilol for improved blo od pressure control. We will see about giving him metolazone. Obtain electrol ytes. Obtain hemoglobin. Obtain magnesium. Continue to monitor. We will a lso get chest x-ray. Oxygen requirements improving yet still there. 08/27/2021 Patient is laying flat. On 6 L however nasal can nula is not quite in his nose and he is satting 100%. Chest x-ray is o verall improved. Still with little bit of volume. We will give another dose of metolazo ne today. Continue to monitor otherwise. Order electrolytes. 08/28/2021 Getting a little dry. Some borderline blood pres sure. Hold the beta-mariaa this morning. Give a little bit of fluid back. D rop the torsemide to daily starting day after tomorrow if recovering nicely. Stop metolazone, has not been given yesterday or today due to borderline blood pressure. Hold the ARB and beta-mariaa for parameters. 08/29/2021 Creatinine at 1.6 today, 1.5 yesterday, but BUN less than yesterday. Given some fluids yesterday, likely cony teau effect, expect lowering tomorrow hopefully. BP more robust now compared to yesterday after given some fluid back, HR around 100 or less, afib. Give diuretic holiday today. Preliminary schedule torsemide 40 mg once daily to resume tomorrow. Resume the beta b locker. Continue to keep the losartan 100 mg held until the creatinine downtr ends for 2 days. If he discharges, needs a creatinine check within next few days at next facility he goes to. 08/30/2021 Creatinine much improved. Vitals good. HR contro l. On lower dose maintenance torsemide. Diuresed well. Ov erall doing much better. Losartan held. From cardiac standpoint, he is ready to move on from the acut e hospital setting. Overall better today. Electronically Signed by Vinny Chou MD on at 1047 RPT #:[id number] END OF REPORT 2021-08-30 08:25:00-00:[address] [facility] Pulmonology Progress Note REPORT#:[id number] REPORT STATUS: Signed DATE:08/30/21 TIME: 824 PATIENT: OLIVIA MONROY UNIT #: [id number] ROOM/BED: [place] [address] : 48 AGE: 70 SEX: M ATTEND: Mykel Ramos is A MD ADM AUTHOR: Seamus Patel REGULATORY COMPLIANCE DIRECTOR * ALL edits or amendments must be made on the [employer]/computer document * Seamus Patel 08/30/21 0825: Subjective Chief complaint: He is 2 liter NC. His breathing improved. NO CP, fever, chills. NO N/v/D. BP and HR stable. Review of Systems ROS Constitutional: fatigue, generalized weakness. Eyes: Denies: discharge, visual loss/blurred, diplopia , eye pain. Respiratory: Reports: CHRISTENSEN (dyspnea on exertion), SOB. Cardiovascular: Denies: edema, orthopnea, palpitations. GI: Denies: abdominal pain, constipation, diarrhea, GERD, hiatal hernia. : Denies: dysuria, flank pain, hematuria, penile d ischarge, penile lesion, testicular pain. Musculoskeletal: Denies: extremity swelling, joint swelling, lumb ar pain, myalgias. Endocrine: Denies: polydipsia, polyphagia, polyuria. Neuro: Denies: bowel dysfunction, c hange in LOC, confusion, dizziness, focal weakness, gait problem, numbness. Objective General VS/I O: Last Documented: Result Date Time Pulse Ox 100 08/30 0755 O2 Delivery Nasal cannula 08/30 0755 O2 Flow Rate 3 08/30 0755 B/P 136/60 08/30 718 B/P Mean 0.0 08/30 718 Temp 36.5 08/30 718 Pulse 97 08/30 718 Resp 18 08/30 718 FiO2 40 08/29 2106 24 hour I O ending at 0700: 08/30 0708/29 1900 Intake Total 290 Output Total 750 750 Balance -460 -750 Intake, Oral 290 Number 1 Bowel Movements Number Voids 4 Output, Urine 750 750 PATIENT WEIGHT: Weight (lb): Weight (oz): Weight (kg): 118.800 Medications: Active Meds + DC'd Last 24 Hrs Torsemide (DEMADEX) 40 MG DAILY PO Carvedilol (COREG) 6.25 MG BID PO Potassium Chloride (POTASSIUM CHLORIDE 20MEQ TAB .ER) 20 MEQ DAILY PO Carvedilol (COREG) 6.25 MG BID@0900,2100 PO (DC) Magnesium Oxide (MAG-OX 400) 400 MG BID PO Rivaroxaban (XARELTO 20MG) 20 MG DAILY 1700 PO Acetaminophen (TYLENOL) 325 MG Q4H PRN PRN PO Atorvastatin Calcium (LIPITOR) 40 MG 2100 PO Aripiprazole (ABILIFY) 30 MG DAILY PO Aspirin (ASPIRIN) 81 MG DAILY PO Bupropion HCl (WELLBUTRIN) 100 MG QAM PO Glipizide (GLUCOTROL) 10 MG DAILY PO (r) Losartan Potassium (COZAAR) 100 MG DAILY PO (DC) Albuterol Sulfate (ALBUTEROL SULFATE) 1.25 MG RT Q4H PRN PRN NEB Nutrition assessment: The data set between the solid lines has been im ported from the dietitian's assessment. Any exceptions have been noted under Provider comments. BMI Calculated: 32.7 Nutrition related diagnosis: Nutrition diagnosis details: Nutrition problem: Increased nutrient needs Nutrition etiology: Wound healing Nutrition signs and symptoms: Stage 2 sacrum Nutrition prescription: 1. C ONTINUE DIABETIC DIET TOLERATED. 2. ENCOURAGE PO INTAKE AND HONOR FOOD PREFERANCES. 3. PROVIDE GL UCERNA BID AND WILTON BID TO SUPPLEMENT MEALS AND AID IN WOUND HEALING. Dietitian name: Lea Gonsalves, DIET RAILROAD INSPECTOR Assessment completed: 08/24/21 Provider comments on imported dietitian assessme nt: Physical Exam General appearance: alert, awake, oriented Head/eyes: atraumatic, PERRLA Cardiovascular: normal heart sounds, normal S1/S 2 Respiratory/chest: on oxygen, respiratory distre ss, tachypneic Abdomen: soft, non-tender, no CVA tenderness Genitourinary: no bladder distention, no flank p ain Extremities: no clubbing, no cyanosis, no edema Musculoskeletal: no muscle spasm Neuro/STAFF SUBMARINE WARFARE OFFICER: alert, oriented X 3 Results Findings/Data: Laboratory Tests 08/30/21 0437: [Embedded Image Not Available] Laboratory Tests 08/30 08/30 08/29 08/29 08/29 0719 0437 1942 1616 1140 Chemistry Sodium (134 - 147 mEq/L) 143 Potassium (3.4 - 5.0 mEq/L) 3.6 Chloride (100 - 108 mEq/L) 103 Carbon Dioxide (21 - 33 mEq/l) 34 H Anion Gap (0 - 20) 10 BUN (7 - 18 mg/dL) 28 H Creatinine (0.6 - 1.3 mg/dL) 1.1 Glomerular Filtr Rate (70 - 80) 65.8 L Glucose (70 - 110 mg/dL) 115 H POC Glucose (70 - 110 MG/DL) 130 H 135 H 116 H 150 H Calcium (8.0 - 10.5 mg/dL) 10.4 Results: labs reviewed, vital signs reviewed, cu rrent med profile rev'd Treatment Prophylaxis Treatment Prophylaxis Oxygen: CPAP/BIPAP, nasal cannula Diagnosis, Assessment Plan Hospital course to date: ASSESSMENT: - Acute hypercapnic and hypoxic respiratory fail ure secondary to CHF exacerbation, [id number] diastolic dysfunc tion. - Acute congestive heart failure exacerbation, a [id number]. - Hypokalemia. - VIANNEY. - History of hypertension. - History of hyperlipidemia. - History of atrial fibrillation. - Diabetes type 2. - History of coronary artery disease status post coronary artery bypass graft and percutaneous coronary intervention. - Morbid obesity, body mass index 32.7. - ECHO showed EF 45 to 50% and PAP 57.19 mmHg, m oderate TR and [place]. PLAN: IMCU. Will continue to monitor res piratory status, breathing treatment, oxygen support , and wean the oxygen slowly. Lasix per pay clerk. Follow labs and replace as needed. SCD for DVT prophylaxis. Continue home medication. Glycemic control, Accu-Chek a.c. and at bedtime, sliding scale. Monitor. Consultants: cardiology Code status: full code Plan discussed with: patient, admitting physicia n, consultants, nurse Ava Abarca 08/31/21 0328: Attestations Physician Attestation Agree w/findings plan: Patient seen and examined, c linical data reviewed and I agree with the findings and plan as discussed with and documented by Edwin Patel NP Electronically Signed by Seamus Patel NP on at 0826 Electronically Signed by Ava Abarca MD on 0 08/31/21 at 0330 RPT #:[id number] END OF REPORT 2021-08-29 16:03:00-00:[address] [facility] Internal Medicine Prog. Note REPORT#:[id number] REPORT STATUS: Signed DATE:08/29/21 TIME: 1603 PATIENT: OLIVIA MONROY UNIT #: [id number] ROOM/BED: [place] [id number] : 48 AGE: 70 SEX: M ATTEND: Mykel Ramos MD ADM AUTHOR: Benedicto Ramos MD * ALL edits or amendments must be made on the [employer]/computer document * Subjective Chief complaint: He is stable. On 4 liter NC and His breathing improved. NO CP, fever, chills. NO N/v/D. BP and HR stable. Review of Systems All systems rev neg: except as marked Objective General Medications: Active Meds + DC'd Last 24 Hrs Torsemide (DEMADEX) 40 MG DAILY PO Carvedilol (COREG) 6.25 MG BID PO Sodium Chloride (SODIUM CHLORIDE 0.9%) 1,000 ML .Q20H IV (DC) Potassium Chloride (POTASSIUM CHLORIDE 20MEQ TAB .ER) 20 MEQ DAILY PO Carvedilol (COREG) 6.25 MG BID@0900,2100 PO (DC) Magnesium Oxide (MAG-OX 400) 400 MG BID PO Rivaroxaban (XARELTO 20MG) 20 MG DAILY 1700 PO Acetaminophen (TYLENOL) 325 MG Q4H PRN PRN PO Atorvastatin Calcium (LIPITOR) 40 MG 2100 PO Aripiprazole (ABILIFY) 30 MG DAILY PO Aspirin (ASPIRIN) 81 MG DAILY PO Bupropion HCl (WELLBUTRIN) 100 MG QAM PO Glipizide (GLUCOTROL) 10 MG DAILY PO (DA) Losartan Potassium (COZAAR) 100 MG DAILY PO (DC) Albuterol Sulfate (ALBUTEROL SULFATE) 1.25 MG RT Q4H PRN PRN NEB Physical Exam General appearance: alert, awake, oriented Head/Eyes: atraumatic, EOMI ENT: moist mucosal membranes Neck: full range of motion, non-tender Cardiovascular: normal heart sounds, regular rat e rhythm Respiratory: crackles, on oxygen, symmetric expa nsion Abdomen: non-tender, normal bowel sounds, soft Extremities: Extremities: edema Musculoskeletal: full range of motion, normal in spection Neuro/STAFF SUBMARINE WARFARE OFFICER: alert, oriented x 3 Psychiatry: normal affect, normal judgement/insi ght, normal mood Results Findings/Data: Laboratory Tests 08/29/21 0400: [Embedded Image Not Available] Laboratory Tests 08/29 08/29 08/29 08/28 1140 0744 0400 2119 Chemistry Sodium (134 - 147 mEq/L) 142 Potassium (3.4 - 5.0 mEq/L) 4.2 Chloride (100 - 108 mEq/L) 100 Carbon Dioxide (21 - 33 mEq/l) 33 Anion Gap (0 - 20) 13 BUN (7 - 18 mg/dL) 27 H Creatinine (0.6 - 1.3 mg/dL) 1.6 H Glomerular Filtr Rate (70 - 80) 42.7 L Glucose (70 - 110 mg/dL) 105 POC Glucose (70 - 110 MG/DL) 150 H 109 83 Calcium (8.0 - 10.5 mg/dL) 9.3 Magnesium (1.80 - 2.40 mg/dL) 1.97 Laboratory Tests 08/29 0748 Serology SARS-CoV-2 Ag (Rapid) (Negative) Negative Diagnosis, Assessment Plan Problem List/A P: 1. Uncontrolled type 2 diabetes mellitus with c hronic kidney disease 2. CKD stage 3 due to type 2 diabetes mellitus 3. Acute on chronic systolic CHF (congestive he art failure), NYHA class 1 4. NORRIS (obstructive sleep apnea) 5. Paroxysmal atrial fibrillation 6. Acute respiratory failure with hypoxia Orders: Restarted on Torsemide Off Glipizide,ADA,renal diet,bs ac/hs On Losartan On Coreg,Xarelto and patient want to go to IR Procedure Date/time Status COVID-19 Testing 08/30 747 Active Coronavirus AG Non PUI Rapid 08/30 747 Complet e CPAP/BIPAP ADULT/CHILD 08/29 0229 Complete OXYGEN PER HOUR 08/29 0217 Complete Electronically Signed by Benedicto Ramos MD on 0 08/29/21 at 1605 RPT #:[id number] END OF REPORT 2021-08-29 10:16:00-00:[address] [facility] Cardiology Progress Note REPORT#:[id number] REPORT STATUS: Signed DATE:08/29/21 TIME: 1016 PATIENT: OLIVIA MONROY UNIT #: [id number] ROOM/BED: [place] [id number] : 48 AGE: 70 SEX: M ATTEND: Mykel Ramos A ADM AUTHOR: Vinny Chou MD * ALL edits or amendments must be made on the [employer]/computer document * Subjective Chief complaint: SOB Free Text Subj Notes Free Text Subj Notes: Doing well, on room air, den ies SOB, laying relatively flat, wants to get out of here. Objective General VS/I O: 24 hour I O ending at 0700: 08/29 0700 08/28 1900 Intake Total Output Total 500 Balance -500 Output, Urine 500 Vital Signs: Date Time Temp Pulse Resp B/P B/P Pulse O2 O2 F low FiO2 Mean Ox Delivery Rate 08/29 1014 95 Room air 08/29 0936 98.5 83 19 142/65 90 95 Room air 08/29 0926 98.5 08/29 0800 98.5 08/29 0600 104 108/59 76 97 08/29 0500 105 117/66 82 99 08/29 0400 98.1 107 16 103/57 72 96 Nasal 2 cannula 08/29 0400 107 103/57 68 96 08/29 0348 98.1 08/29 0301 120 120/87 100 94 08/29 0200 107 116/60 80 96 08/29 0100 104 105/70 83 96 08/29 0005 97.7 08/29 0000 97.7 104 20 105/70 81 96 Nasal 2 cannula 08/28 2301 112 150/74 106 100 08/28 2200 97 99/55 73 98 08/28 2154 86 99 40 08/28 2154 86 Nasal 2 99 cannula 08/288 96 120/58 81 99 08/28 2030 Nasal 2 cannula 08/28 2005 83 101/53 73 93 08/28 2000 97.7 96 14 101/53 69 99 Nasal 2 cannula 08/28 1958 97.7 08/28 1800 91 105/51 74 99 08/28 1701 104 113/53 77 99 08/28 1649 102 109/52 75 99 08/28 1600 97.5 102 24 109/52 71 99 High flow 2 nasal cannula 08/28 1500 85 119/56 80 97 08/28 1418 105/52 08/28 1400 101 63 98 08/28 1200 97.6 111 31 94/60 71 97 High flow 2 nasal cannula 08/28 1200 111 31 94/60 71 97 08/28 1045 114 13 97/56 70 PATIENT WEIGHT: Weight (lb): Weight (oz): Weight (kg): 118.800 Medications: Active Meds + DC'd Last 24 Hrs Torsemide (DEMADEX) 40 MG DAILY PO Sodium Chloride (SODIUM CHLORIDE 0.9%) 1,000 ML .Q20H IV (DC) Potassium Chloride (POTASSIUM CHLORIDE 20MEQ TAB .ER) 20 MEQ DAILY PO Carvedilol (COREG) 6.25 MG BID@0900,2100 PO (DA) Magnesium Oxide (MAG-OX 400) 400 MG BID PO Rivaroxaban (XARELTO 20MG) 20 MG DAILY 1700 PO Acetaminophen (TYLENOL) 325 MG Q4H PRN PRN PO Atorvastatin Calcium (LIPITOR) 40 MG 2100 PO Aripiprazole (ABILIFY) 30 MG DAILY PO Aspirin (ASPIRIN) 81 MG DAILY PO Bupropion HCl (WELLBUTRIN) 100 MG QAM PO Glipizide (GLUCOTROL) 10 MG DAILY PO (DA) Losartan Potassium (COZAAR) 100 MG DAILY PO (DA) Albuterol Sulfate (ALBUTEROL SULFATE) 1.25 MG RT Q4H PRN PRN NEB Physical Exam General appearance: alert, awake, no acute distr ess Head/Eyes: atraumatic, normal conjunctiva/sclera , normocephalic ENT: moist mucosal membranes, normal pharynx Neck: full range of motion, supple/no meningismu s Cardiovascular: CV assessment: ectopy, irregular rhythm, irregu larly irregular Murmur assessment: 2/6 sm Respiratory: decreased breath sounds, on oxygen, no distress Abdomen: soft, non-tender, no distention Upper extremity: UE assessment: normal temperature, no clubbing, no cyanosis Lower extremity: LE assessment: edema, normal temperature, no cl ubbing, no cyanosis Musculoskeletal: full range of motion, normal in spection Neuro/STAFF SUBMARINE WARFARE OFFICER: alert, normal speech Skin: poor skin turgor, dry Results Findings/Data: Laboratory Tests 08/29 08/29 08/28 08/28 0744 0400 2119 1145 Chemistry Sodium (134 - 147 mEq/L) 142 Potassium (3.4 - 5.0 mEq/L) 4.2 Chloride (100 - 108 mEq/L) 100 Carbon Dioxide (21 - 33 mEq/l) 33 Anion Gap (0 - 20) 13 BUN (7 - 18 mg/dL) 27 H Creatinine (0.6 - 1.3 mg/dL) 1.6 H Glomerular Filtr Rate (70 - 80) 42.7 L Glucose (70 - 110 mg/dL) 105 POC Glucose (70 - 110 MG/DL) 109 83 153 H Calcium (8.0 - 10.5 mg/dL) 9.3 Magnesium (1.80 - 2.40 mg/dL) 1.97 Laboratory Tests 08/29 0400 Chemistry Magnesium (1.80 - 2.40 mg/dL) 1.97 Results: labs reviewed, rhythm personally rev'd, current med profile rev'd Diagnosis, Assessment Plan Consultants: cardiology Free Text DxA P Notes Free Text DxA P Notes: 1. Acute congestive heart failure 2. Coronary atherosclerosis with prior CABG and prior PCI 3. Accelerated hypertension 4. Adult failure to thrive - prior prolonged hos pitalization 5. Diabetes mellitus 6. Normocytic anemia 7. Paroxysmal afib 8. 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 We will g et echo. Place on IV lasix to diurese and use BIPAP as well. Serial troponin i s negative. This does not represent ACS situation but rather likely an acute HF exacerbation. He will need to be put on higher maintena nce dose at discharge. For now, we know that he has prior 3vCABG per report as pancho jewell as prior remote PCI. is a big proponent for [employer] system for cardiac care and only want s cardiologists who have privileges there. For now, pancho billie will give him IV lasix and get the echo to see if any new systolic dysfunction has occurre d. Further recommendations after that. Monitor on telemetry, appears to be at s inus rhythm on admission. Need to have RN reconcile medications. Ne ed to see what the HGb trends, compared to last year is significantly reduced, but has recent chronic prolonged hospitalization, likely component anemia of chronic disease. 08/23/2021 Awaiting echocardiogram. He has been receiving I V Lasix 80 mg twice daily. He received a dose of 80 in the afternoon y and another one just now this morning. Prior to that I believe that he received about 60 mg in the emergency department yesterday. Per nursing report they at tempted to put a condom catheter however several sizes did not f it adequately. Also per nursing he has urinated in the bed several times. Thus it is mallory rd to know how well he is urinating. Obtain chest x-ray tomorrow. He repor ts that his breathing status is improved overall. Still on significant oxygen . They report no recent PCI. They also report that the patient was on Xarelto . As such we will see about starting that and discontinuing either the aspir in or the Plavix. As such, we will also need to monitor that hemoglobin. 08/24/2021 The patient has LVEF in the upper 40's, wall motion indicative and suggestive of prior CABG and prior scarrin g in certain areas. In either case, volume status is improving. He is now on Xare lto - no Hgb yet this AM. Also no labs yet this AM. He is on IV lasix, oxygen sats improving and venkat otero down the oxygen. We will see if we can transition him to orals tomorrow. Plavix has been discontinued as well. Spoke with on the phone today to cristian barajas her [phone]. 08/25/2021 Some tachycardia on telemetry, oxygen requiremen ts improving, feeling better. Some hypertensive values. We will increase the beta mariaa dose. The xarelto is being tolerated. We will als o increase potassium and magnesium standing orders. On torsemide currently. Keisha amina overall - may require dose adjustment downwards after several days if he is still diuresing nice ly on this oral regimen. 08/26/2021 Change metoprolol to carvedilol for improved blo od pressure control. We will see about giving him metolazone. Obtain electrol ytes. Obtain hemoglobin. Obtain magnesium. Continue to monitor. We will a lso get chest x-ray. Oxygen requirements improving yet still there. 08/27/2021 Patient is laying flat. On 6 L however nasal can nula is not quite in his nose and he is satting 100%. Chest x-ray is o verall improved. Still with little bit of volume. We will give another dose of metolazo ne today. Continue to monitor otherwise. Order electrolytes. 08/28/2021 Getting a little dry. Some borderline blood pres sure. Hold the beta-mariaa this morning. Give a little bit of fluid back. D rop the torsemide to daily starting day after tomorrow if recovering nicely. Stop metolazone, has not been given yesterday or today due to borderline blood pressure. Hold the ARB and beta-mariaa for parameters. 08/29/2021 Creatinine at 1.6 today, 1.5 yesterday, but BUN less than yesterday. Given some fluids yesterday, likely cony teau effect, expect lowering tomorrow hopefully. BP more robust now compared to yesterday after given some fluid back, HR around 100 or less, afib. Give diuretic holiday today. Preliminary schedule torsemide 40 mg once daily to resume tomorrow. Resume the beta b locker. Continue to keep the losartan 100 mg held until the creatinine downtr ends for 2 days. If he discharges, needs a creatinine check within next few days at next facility he goes to. Electronically Signed by Vinny Chou MD on at 1021 RPT #:[id number] END OF REPORT 2021-08-29 08:00:00-00:00 [facility] ([facility]) Pulmonology Progress Note REPORT#:[id number] REPORT STATUS: Signed DATE:08/29/21 TIME: 08 PATIENT: OLIVIA MONROY UNIT #: [id number] ROOM/BED: [place] [address] : 48 AGE: 70 SEX: M ATTEND: Mykel Ramos is A MD ADM AUTHOR: Seamus Patel REGULATORY COMPLIANCE DIRECTOR * ALL edits or amendments must be made on the [employer]/computer document * Seamus Patel 08/29/21 0800: Subjective Chief complaint: He is stable. On 4 liter NC and His breathing improved. NO CP, fever, chills. NO N/v/D. BP and HR stable. Review of Systems ROS Constitutional: fatigue, generalized weakness. Skin: Denies: bruising, diaphoresis, ecchymosis, itchi ng. Eyes: Denies: discharge, visual loss/blurred, diplopia , eye pain. Respiratory: Reports: CHRISTENSEN (dyspnea on exertion), SOB. Cardiovascular: Denies: edema, orthopnea, palpitations. GI: Denies: abdominal pain, constipation, diarrhea, GERD, hiatal hernia. : Denies: dysuria, flank pain, hematuria, penile d ischarge, penile lesion, testicular pain. Musculoskeletal: Denies: extremity swelling, joint swelling, lumb ar pain, myalgias. Endocrine: Denies: polydipsia, polyphagia, polyuria. Neuro: Denies: bowel dysfunction, c hange in LOC, confusion, dizziness, focal weakness, gait problem, numbness. Objective General VS/I O: Last Documented: Result Date Time Pulse Ox 97 08/29 599 B/P 108/59 08/29 599 B/P Mean 76 04/26 0600 Pulse 104 08/29 0600 Temp 36.7 08/29 0348 FiO2 40 08/28 2154 O2 Delivery Nasal cannula 08/28 2154 O2 Flow Rate 2 08/28 2154 Resp 24 08/28 1600 24 hour I O ending at 0700: 08/29 0700 08/28 1900 Intake Total Output Total 500 Balance -500 Output, Urine 500 PATIENT WEIGHT: Weight (lb): Weight (oz): Weight (kg): 118.800 Medications: Active Meds + DC'd Last 24 Hrs Torsemide (DEMADEX) 40 MG DAILY PO Sodium Chloride (SODIUM CHLORIDE 0.9%) 1,000 ML .Q20H IV (DC) Potassium Chloride (POTASSIUM CHLORIDE 20MEQ TAB .ER) 20 MEQ DAILY PO Torsemide (DEMADEX) 40 MG DAILY PO (DC) Carvedilol (COREG) 6.25 MG BID@0900,2100 PO (DA) Metolazone (ZAROXOLYN) 5 MG DAILY PO (DC) Potassium Chloride (POTASSIUM CHLORIDE 20MEQ TAB .ER) 20 MEQ BID 9A 5P PO (DC) Torsemide (DEMADEX) 40 MG BID 9A 5P PO (DC) Magnesium Oxide (MAG-OX 400) 400 MG BID PO Rivaroxaban (XARELTO 20MG) 20 MG DAILY 1700 PO Acetaminophen (TYLENOL) 325 MG Q4H PRN PRN PO Atorvastatin Calcium (LIPITOR) 40 MG 2100 PO Aripiprazole (ABILIFY) 30 MG DAILY PO Aspirin (ASPIRIN) 81 MG DAILY PO Bupropion HCl (WELLBUTRIN) 100 MG QAM PO Glipizide (GLUCOTROL) 10 MG DAILY PO (DA) Losartan Potassium (COZAAR) 100 MG DAILY PO (DA) Metformin HCl (GLUCOPHAGE) 1,000 MG BID PO (DC) Albuterol Sulfate (ALBUTEROL SULFATE) 1.25 MG RT Q4H PRN PRN NEB Physical Exam General appearance: alert, awake, oriented Head/eyes: atraumatic, PERRLA Cardiovascular: normal heart sounds, normal S1/S 2 Respiratory/chest: on oxygen, respiratory distre ss, tachypneic Abdomen: soft, non-tender, no CVA tenderness Genitourinary: no bladder distention, no flank p ain Extremities: no clubbing, no cyanosis, no edema Musculoskeletal: no muscle spasm Neuro/STAFF SUBMAR[employer] OFFICER: alert, oriented X 3 Results Findings/Data: Laboratory Tests 08/29/21 0400: [Embedded Image Not Available] Laboratory Tests 08/29 08/28 08/28 08/28 0400 2119 1145 0810 Chemistry Sodium (134 - 147 mEq/L) 142 Potassium (3.4 - 5.0 mEq/L) 4.2 Chloride (100 - 108 mEq/L) 100 Carbon Dioxide (21 - 33 mEq/l) 33 Anion Gap (0 - 20) 13 BUN (7 - 18 mg/dL) 27 H Creatinine (0.6 - 1.3 mg/dL) 1.6 H Glomerular Filtr Rate (70 - 80) 42.7 L Glucose (70 - 110 mg/dL) 105 POC Glucose (70 - 110 MG/DL) 83 153 H 88 Calcium (8.0 - 10.5 mg/dL) 9.3 Magnesium (1.80 - 2.40 mg/dL) 1.97 Results: labs reviewed, noman l signs reviewed, x-ray personally reviewed, current med profile rev'd Treatment Prophylaxis Treatment Prophylaxis Oxygen: CPAP/BIPAP, nasal cannula Diagnosis, Assessment Plan Hospital course to date: ASSESSMENT: - Acute hypercapnic and hypoxic respiratory fail ure secondary to CHF exacerbation, [id number] diastolic dysfunc tion. - Acute congestive heart failure exacerbation, a [id number]. - Hypokalemia. - VIANNEY. - History of hypertension. - History of hyperlipidemia. - History of atrial fibrillation. - Diabetes type 2. - History of coronary artery disease status post coronary artery bypass graft and percutaneous coronary intervention. - Morbid obesity, body mass index 32.7. - ECHO showed EF 45 to 50% and PAP 57.19 mmHg, m oderate TR and [place]. PLAN: IMCU. He is breathing better on 4 liter NC, No SOB or respiratory distress. Will continue to monitor res piratory status, breathing treatment, oxygen support , and wean the oxygen slowly. Lasix per pay clerk. Follow labs and replace as needed. SCD for DVT prophylaxis. Continue home medication. Glycemic control, Accu-Chek a.c. and at bedtime, sliding scale. Monitor. Consultants: cardiology Code status: full code Plan discussed with: patient, admitting physicia n, consultants, Ava Echevarria 08/31/21 0327: Attestations Physician Attestation Agree w/findings plan: Patient seen and examined, c linical data reviewed and I agree with the findings and plan as discussed with and documented by Edwin Patel NP Electronically Signed by Seamus Patel NP on at 0801 Electronically Signed by Ava Abarca MD on 0 08/31/21 at 0329 RPT #:[id number] END OF REPORT 2021-08-28 17:00:00-00:[address] [facility] Internal Medicine Prog. Note REPORT#:[id number] REPORT STATUS: Signed DATE:08/28/21 TIME: 1700 PATIENT: OLIVIA MONROY UNIT #: [id number] ROOM/BED: [place] [address] : 48 AGE: 70 SEX: M ATTEND: Mykel Ramos A ADM AUTHOR: Benedicto Ramos MD * ALL edits or amendments must be made on the [employer]/computer document * See Addendum Subjective Chief complaint: He is on 4 liter NC. His breathing improved. NO CP, fever, chills. NO N/v/D. BP and HR stable. Unable to obtain: uncooperative Review of Systems All systems rev neg: except as marked Objective General Medications: Active Meds + DC'd Last 24 Hrs Torsemide (DEMADEX) 40 MG DAILY PO Sodium Chloride (SODIUM CHLORIDE 0.9%) 1,000 ML .Q20H IV Potassium Chloride (POTASSIUM CHLORIDE 20MEQ TAB .ER) 20 MEQ DAILY PO Torsemide (DEMADEX) 40 MG DAILY PO (DC) Carvedilol (COREG) 6.25 MG BID@0900,2100 PO (DA) Metolazone (ZAROXOLYN) 5 MG DAILY PO (DC) Potassium Chloride (POTASSIUM CHLORIDE 20MEQ TAB .ER) 20 MEQ BID 9A 5P PO (DC) Torsemide (DEMADEX) 40 MG BID 9A 5P PO (DC) Magnesium Oxide (MAG-OX 400) 400 MG BID PO Rivaroxaban (XARELTO 20MG) 20 MG DAILY 1700 PO Acetaminophen (TYLENOL) 325 MG Q4H PRN PRN PO Atorvastatin Calcium (LIPITOR) 40 MG 2100 PO Aripiprazole (ABILIFY) 30 MG DAILY PO Aspirin (ASPIRIN) 81 MG DAILY PO Bupropion HCl (WELLBUTRIN) 100 MG QAM PO Glipizide (GLUCOTROL) 10 MG DAILY PO Losartan Potassium (COZAAR) 100 MG DAILY PO (DA) Metformin HCl (GLUCOPHAGE) 1,000 MG BID PO (DC) Albuterol Sulfate (ALBUTEROL SULFATE) 1.25 MG RT Q4H PRN PRN NEB Physical Exam General appearance: confused, alert, awake Head/Eyes: atraumatic, EOMI ENT: moist mucosal membranes Neck: full range of motion, non-tender Cardiovascular: normal heart sounds, regular rat e rhythm Respiratory: crackles, on oxygen, symmetric expa nsion Abdomen: non-tender, normal bowel sounds, soft Extremities: Extremities: edema Musculoskeletal: full range of motion, normal in spection Neuro/STAFF [employer] OFFICER: alert, oriented x 3 Psychiatry: normal affect, normal judgement/insi ght, normal mood Results Findings/Data: Laboratory Tests 08/28/21 0441: [Embedded Image Not Available] Laboratory Tests 08/28 08/28 08/28 08/27 08/27 1145 0810 440 2002 1750 Chemistry Sodium (134 - 147 mEq/L) 143 Potassium (3.4 - 5.0 mEq/L) 3.6 Chloride (100 - 108 mEq/L) 96 L Carbon Dioxide (21 - 33 mEq/l) 38 H Anion Gap (0 - 20) 12 BUN (7 - 18 mg/dL) 33 H Creatinine (0.6 - 1.3 mg/dL) 1.5 H Glomerular Filtr Rate (70 - 80) 46.0 L Glucose (70 - 110 mg/dL) 64 L POC Glucose (70 - 110 MG/DL) 153 H 88 121 H 104 Calcium (8.0 - 10.5 mg/dL) 9.6 Magnesium (1.80 - 2.40 mg/dL) 1.80 08/27 1706 Chemistry POC Glucose (70 - 110 MG/DL) 78 Laboratory Tests 08/28 0441 Hematology WBC (4.5 - 11.0 x10 3/uL) 9.0 RBC (4.00 - 5.60 x10 6/uL) 3.32 L Hgb (12.5 - 16.9 g/dL) 8.4 L Hct (37.5 - 50.7 %) 28.1 L MCV (81.0 - 99.0 fL) 84.6 MCH (27.0 - 33.0 pg) 25.3 L MCHC (33.0 - 37.0 g/dL) 29.9 L RDW (11.5 - 14.5 %) 17.2 H Plt Count (150 - 400 x10 3/uL) 258 MPV (7.0 - 9.0 fL) 10.8 H Neut % (Auto) (56.0 - 77.0 %) 61.5 Lymph % (Auto) (14.0 - 32.0 %) 22.8 Ashley % (Auto) (4.8 - 9.0 %) 10.6 H Eos % (Auto) (0.3 - 3.7 %) 3.7 Baso % (Auto) (0.0 - 2.0 %) 1.0 Neut # (Auto) (2.0 - 7.6 x10 3/uL) 5.53 Lymph # (Auto) (1.0 - 3.8 x10 3/uL) 2.05 Ashley # (Auto) (0.1 - 0.8 x10 3/uL) 0.95 H Eos # (Auto) (0.0 - 0.2 x10 3/uL) 0.33 H Baso # (Auto) (0.0 - 0.2 x10 3/uL) 0.09 Abs Immat Gran (auto) (0.00 - 0.03 x10 3/uL) 0. 04 H Add Manual Diff NO Immature Gran % (0.0 - 2.0 %) 0.4 Nucleated RBC % (0 - 0 %) 0.0 Nucleated RBCs # (Man) (0.0 - 0.1 x10 3/uL) 0.0 0 Diagnosis, Assessment Plan Problem List/A P: 1. Acute on chronic systolic CHF (congestive he art failure), NYHA class 1 2. Paroxysmal atrial fibrillation 3. NORRIS (obstructive sleep apnea) 4. Acute respiratory failure with hypoxia 5. History of coronary artery bypass graft x 3 6. CAD (coronary artery disease) 7. Uncontrolled type 2 diabetes mellitus with c hronic kidney disease 8. CKD stage 3 due to type 2 diabetes mellitus 9. Hypotension Orders: Holding BP medications,diuretic,due to hypotensi on On IVF Holding discharge ADA,renal diet Off Metformin, hold Glucotrol,due to hypoglycemi a. Procedure Date/time Status THER ACTIVIT DIR 15 MIN 08/28 1613 Active FUNCTIONAL TRAINING 08/28 1406 Active OXYGEN PER HOUR 08/28 0933 Complete CATHETER ULTSND 20GA 2. 818177 08/28 UNK Comple te DRSNG GRMCDL 1.5MM.75IN 488906 08/28 UNK Comple te Electronically Signed by Benedicto Ramos MD on 0 08/28/21 at 1709 Addendum 1: 08/28/21 170 by Benedicto Ramos MD On Xarelto Electronically Signed by Benedicto Ramos MD on 0 08/28/21 at 1709 RPT #:[id number] END OF REPORT 2021-08-28 09:44:00-00:[address] [facility] Cardiology Progress Note REPORT#:[id number] REPORT STATUS: Signed DATE:08/28/21 TIME: 943 PATIENT: OLIVIA MONROY UNIT #: [id number] ROOM/BED: [place] [address] : 48 AGE: 70 SEX: M ATTEND: Mykel Ramos is A ADM AUTHOR: Vinny Chou MD * ALL edits or amendments must be made on the [employer] document * Subjective Chief complaint: SOB Free Text Subj Notes Free Text Subj Notes: Patient reports feeling well. Some borderline bl ood pressure values. Objective General VS/I O: 24 hour I O ending at 0700: 08/28 0700 08/27 1900 Intake Total Output Total 750 1300 Balance -750 -1300 Number 1 Bowel Movements Number Voids 3 Output, Urine 750 1300 Vital Signs: Date Time Temp Pulse Resp B/P B/P Pulse O2 O2 Flow FiO2 Mean Ox Delivery Rate 08/28 0924 100 Nasal 6 cannula 08/28 0447 86 16 88/54 64 100 08/28 0400 98.1 86 16 88/54 65 100 High flow 6 nasal cannula 08/28 0300 104 13 95/52 69 100 08/28 0216 110 18 96/65 74 97 08/28 0200 114 32 86/54 61 94 08/28 0100 111 18 89/62 71 100 08/28 0007 104 20 93/58 69 100 08/28 0000 98.6 104 20 93/58 69 100 High flow 6 nasal cannula 08/27 2324 121 100 40 08/27 2324 100 High flow 6 nasal cannula 08/27 2300 110 29 90/53 63 94 08/27 2100 97 35 100/51 71 92 08/27 2030 High flow 6 nasal cannula 08/28 1999 97.3 08/28 1999 97.3 97 22 100/51 67 94 High flow 6 nasal cannula 08/28 1999 106 22 91/46 64 90 08/27 1800 111 14 108/54 77 100 08/27 1718 116 22 97/66 76 100 08/27 1600 98.0 71 17 99/57 71 100 High flow 6 nasal cannula 08/27 1600 71 17 92/64 74 100 08/27 1500 121 22 99/57 73 90 08/27 1411 109 19 99/56 73 100 08/27 1400 112 23 91/50 65 90 08/27 1300 111 20 109/55 75 98 08/27 1200 97.4 84 16 110/53 72 100 High flow 6 nasal cannula 08/27 1200 84 16 110/53 77 100 08/27 1001 104 40 96/48 69 92 PATIENT WEIGHT: Weight (lb): Weight (oz): Weight (kg): 118.800 Medications: Active Meds + DC'd Last 24 Hrs Sodium Chloride (SODIUM CHLORIDE 0.9%) 1,000 ML .Q20H IV Potassium Chloride (POTASSIUM CHLORIDE 20MEQ TAB .ER) 20 MEQ DAILY PO Torsemide (DEMADEX) 40 MG DAILY PO Carvedilol (COREG) 6.25 MG BID@0900,2100 PO Metolazone (ZAROXOLYN) 5 MG DAILY PO (DC) Carvedilol (COREG) 12.5 MG BID@0900,2100 PO (DC) Potassium Chloride (POTASSIUM CHLORIDE 20MEQ TAB .ER) 20 MEQ BID 9A 5P PO (DC) Torsemide (DEMADEX) 40 MG BID 9A 5P PO (DC) Magnesium Oxide (MAG-OX 400) 400 MG BID PO Rivaroxaban (XARELTO 20MG) 20 MG DAILY 1700 PO Acetaminophen (TYLENOL) 325 MG Q4H PRN PRN PO Atorvastatin Calcium (LIPITOR) 40 MG 2100 PO Aripiprazole (ABILIFY) 30 MG DAILY PO Aspirin (ASPIRIN) 81 MG DAILY PO Bupropion HCl (WELLBUTRIN) 100 MG QAM PO Glipizide (GLUCOTROL) 10 MG DAILY PO Losartan Potassium (COZAAR) 100 MG DAILY PO Metformin HCl (GLUCOPHAGE) 1,000 MG BID PO (DC) Albuterol Sulfate (ALBUTEROL SULFATE) 1.25 MG RT Q4H PRN PRN NEB Physical Exam General appearance: alert, awake, no acute distr ess Head/Eyes: atraumatic, normal conjunctiva/sclera , normocephalic ENT: moist mucosal membranes, normal pharynx Neck: full range of motion, supple/no meningismu s Cardiovascular: CV assessment: ectopy, irregular rhythm, irregu larly irregular Murmur assessment: 2/6 sm Respiratory: decreased breath sounds, on oxygen, no distress Abdomen: soft, non-tender, no distention Upper extremity: UE assessment: normal temperature, no clubbing, no cyanosis Lower extremity: LE assessment: edema, normal temperature, no cl ubbing, no cyanosis Musculoskeletal: full range of motion, normal in spection Neuro/STAFF [employer] OFFICER: alert, normal speech Skin: poor skin turgor, dry Results Findings/Data: Laboratory Tests 08/28 08/28 08/27 08/27 08/27 0810 1 2002 1749 1706 Chemistry Sodium (134 - 147 mEq/L) 143 Potassium (3.4 - 5.0 mEq/L) 3.6 Chloride (100 - 108 mEq/L) 96 L Carbon Dioxide (21 - 33 mEq/l) 38 H Anion Gap (0 - 20) 12 BUN (7 - 18 mg/dL) 33 H Creatinine (0.6 - 1.3 mg/dL) 1.5 H Glomerular Filtr Rate (70 - 80) 46.0 L Glucose (70 - 110 mg/dL) 64 L POC Glucose (70 - 110 MG/DL) 88 121 H 104 78 Calcium (8.0 - 10.5 mg/dL) 9.6 Magnesium (1.80 - 2.40 mg/dL) 1.80 08/27 08/27 1635 1150 Chemistry POC Glucose (70 - 110 MG/DL) 69 L 96 Laboratory Tests 08/28 0441 Hematology WBC (4.5 - 11.0 x10 3/uL) 9.0 RBC (4.00 - 5.60 x10 6/uL) 3.32 L Hgb (12.5 - 16.9 g/dL) 8.4 L Hct (37.5 - 50.7 %) 28.1 L MCV (81.0 - 99.0 fL) 84.6 MCH (27.0 - 33.0 pg) 25.3 L MCHC (33.0 - 37.0 g/dL) 29.9 L RDW (11.5 - 14.5 %) 17.2 H Plt Count (150 - 400 x10 3/uL) 258 MPV (7.0 - 9.0 fL) 10.8 H Neut % (Auto) (56.0 - 77.0 %) 61.5 Lymph % (Auto) (14.0 - 32.0 %) 22.8 Ashley % (Auto) (4.8 - 9.0 %) 10.6 H Eos % (Auto) (0.3 - 3.7 %) 3.7 Baso % (Auto) (0.0 - 2.0 %) 1.0 Neut # (Auto) (2.0 - 7.6 x10 3/uL) 5.53 Lymph # (Auto) (1.0 - 3.8 x10 3/uL) 2.05 Ashley # (Auto) (0.1 - 0.8 x10 3/uL) 0.95 H Eos # (Auto) (0.0 - 0.2 x10 3/uL) 0.33 H Baso # (Auto) (0.0 - 0.2 x10 3/uL) 0.09 Abs Immat Gran (auto) (0.00 - 0.03 x10 3/uL) 0. 04 H Add Manual Diff NO Immature Gran % (0.0 - 2.0 %) 0.4 Nucleated RBC % (0 - 0 %) 0.0 Nucleated RBCs # (Man) (0.0 - 0.1 x10 3/uL) 0.0 0 Laboratory Tests 08/28 0441 Chemistry Magnesium (1.80 - 2.40 mg/dL) 1.80 Results: labs reviewed, vital signs revi ewed, rhythm personally rev'd, current med profile rev'd Diagnosis, Assessment Plan Consultants: cardiology Free Text DxA P Notes Free Text DxA P Notes: 1. Acute congestive heart failure 2. Coronary atherosclerosis with prior CABG and prior PCI 3. Accelerated hypertension 4. Adult failure to thrive - prior prolonged hos pitalization 5. Diabetes mellitus 6. Normocytic anemia 7. Paroxysmal afib 8. 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 We will g et echo. Place on IV lasix to diurese and use BIPAP as well. Serial troponin i s negative. This does not represent ACS situation but rather likely an acute HF exacerbation. He will need to be put on higher maintena nce dose at discharge. For now, we know that he has prior 3vCABG per report as [facility] as prior remote PCI. is a big proponent for [employer] system for cardiac care and only want s cardiologists who have privileges there. For now, pancho wise will give him IV lasix and get the echo to see if any new systolic dysfunction has occurre d. Further recommendations after that. Monitor on telemetry, appears to be at s inus rhythm on admission. Need to have RN reconcile medications. Ne ed to see what the HGb trends, compared to last year is significantly reduced, but has recent chronic prolonged hospitalization, likely component anemia of chronic disease. 08/23/2021 Awaiting echocardiogram. He has been receiving I V Lasix 80 mg twice daily. He received a dose of 80 in the afternoon y and another one just now this morning. Prior to that I believe that he received about 60 mg in the emergency department yesterday. Per nursing report they at tempted to put a condom catheter however several sizes did not f it adequately. Also per nursing he has urinated in the bed several times. Thus it is mallory rd to know how well he is urinating. Obtain chest x-ray tomorrow. He repor ts that his breathing status is improved overall. Still on significant oxygen . They report no recent PCI. They also report that the patient was on Xarelto . As such we will see about starting that and discontinuing either the aspir in or the Plavix. As such, we will also need to monitor that hemoglobin. 08/24/2021 The patient has LVEF in the upper 40's, wall motion indicative and suggestive of prior CABG and prior scarrin g in certain areas. In either case, volume status is improving. He is now on Xare lto - no Hgb yet this AM. Also no labs yet this AM. He is on IV lasix, oxygen sats improving and wea branden down the oxygen. We will see if we can transition him to orals tomorrow. Plavix has been discontinued as well. Spoke with on the phone today to cristian barajas her [phone]. 08/25/2021 Some tachycardia on telemetry, oxygen requiremen ts improving, feeling better. Some hypertensive values. We will increase the beta mariaa dose. The xarelto is being tolerated. We will als o increase potassium and magnesium standing orders. On torsemide currently. Keisha huynh overall - may require dose adjustment downwards after several days if he is still diuresing nice ly on this oral regimen. 08/26/2021 Change metoprolol to carvedilol for improved blo od pressure control. We will see about giving him metolazone. Obtain electrol ytes. Obtain hemoglobin. Obtain magnesium. Continue to monitor. We will a lso get chest x-ray. Oxygen requirements improving yet still there. 08/27/2021 Patient is laying flat. On 6 L however nasal can nula is not quite in his nose and he is satting 100%. Chest x-ray is o verall improved. Still with little bit of volume. We will give another dose of metolazone today. Continue to monitor otherwise. Order electrolytes. 08/28/2021 Getting a little dry. Some borderline blood pres sure. Hold the beta-mariaa this morning. Give a little bit of fluid back. D rop the torsemide to daily starting day after tomorrow if recovering nicely. Stop metolazone, has not been given yesterday or today due to borderline blood pressure. Hold the ARB and beta-mariaa for parameters. Electronically Signed by Vinny Chou MD on at 0953 [facility] #:[id number] END OF REPORT 2021-08-28 08:13:00-00:00 [facility] Pulmonology Progress Note REPORT#:[id number] REPORT STATUS: Signed DATE:08/28/21 TIME: 812 PATIENT: OLIVIA MONROY UNIT #: [id number] ROOM/BED: [place] [id number] : 48 AGE: 70 SEX: M ATTEND: Mykel Ramos is A MD ADM AUTHOR: Seamus Patel REGULATORY COMPLIANCE DIRECTOR * ALL edits or amendments must be made on the [employer]/computer document * Seamus Patel 08/28/21 0813: Subjective Chief complaint: He is on 4 liter NC. His breathing improved. NO CP, fever, chills. NO N/v/D. BP and HR stable. Review of Systems ROS Constitutional: fatigue, generalized weakness. Skin: Denies: bruising, diaphoresis, ecchymosis, itchi ng. Eyes: Denies: discharge, visual loss/blurred, diplopia , eye pain. Respiratory: Reports: CHRISTENSEN (dyspnea on exertion), SOB. Cardiovascular: Denies: edema, orthopnea, palpitations. GI: Denies: abdominal pain, constipation, diarrhea, GERD, hiatal hernia. : Denies: dysuria, flank pain, hematuria, penile d ischarge, penile lesion, testicular pain. Musculoskeletal: Denies: extremity swelling, joint swelling, lumb ar pain, myalgias. Endocrine: Denies: polydipsia, polyphagia, polyuria. Neuro: Denies: bowel dysfunction, c hange in LOC, confusion, dizziness, focal weakness, gait problem, numbness. Objective General VS/I O: Last Documented: Result Date Time Pulse Ox 100 08/28 0447 B/P 88/54 08/28 0447 B/P Mean 64 08/28 0447 Pulse 86 08/28 0447 Resp 16 08/28 0447 O2 Delivery High flow nasal cannula 08/28 0400 O2 Flow Rate 6 08/28 0400 Temp 36.7 08/28 0400 FiO2 40 08/27 2324 24 hour I O ending at 0700: 08/28 0700 08/27 1900 Intake Total Output Total 750 1300 Balance -750 -1300 Number 1 Bowel Movements Number Voids 3 Output, Urine 750 1300 PATIENT WEIGHT: Weight (lb): Weight (oz): Weight (kg): 118.800 Medications: Active Meds + DC'd Last 24 Hrs Carvedilol (COREG) 6.25 MG BID@0900,2100 PO Metolazone (ZAROXOLYN) 5 MG DAILY PO Carvedilol (COREG) 12.5 MG BID@0900,2100 PO (DC) Potassium Chloride (POTASSIUM CHLORIDE 20MEQ TAB .ER) 20 MEQ BID 9A 5P PO Torsemide (DEMADEX) 40 MG BID 9A 5P PO Magnesium Oxide (MAG-OX 400) 400 MG BID PO Rivaroxaban (XARELTO 20MG) 20 MG DAILY 1700 PO Acetaminophen (TYLENOL) 325 MG Q4H PRN PRN PO Atorvastatin Calcium (LIPITOR) 40 MG 2100 PO Aripiprazole (ABILIFY) 30 MG DAILY PO Aspirin (ASPIRIN) 81 MG DAILY PO Bupropion HCl (WELLBUTRIN) 100 MG QAM PO Glipizide (GLUCOTROL) 10 MG DAILY PO Losartan Potassium (COZAAR) 100 MG DAILY PO Metformin HCl (GLUCOPHAGE) 1,000 MG BID PO Albuterol Sulfate (ALBUTEROL SULFATE) 1.25 MG RT Q4H PRN PRN NEB Nutrition assessment: The data set between the solid lines has been im ported from the dietitian's assessment. Any exceptions have been noted under Provider comments. BMI Calculated: 32.7 Nutrition related diagnosis: Nutrition diagnosis details: Nutrition problem: Increased nutrient needs Nutrition etiology: Wound healing Nutrition signs and symptoms: Stage 2 sacrum Nutrition prescription: 1. C ONTINUE DIABETIC DIET TOLERATED. 2. ENCOURAGE PO INTAKE AND HONOR FOOD PREFERANCES. 3. PROVIDE GL UCERNA BID AND WILTON BID TO SUPPLEMENT MEALS AND AID IN WOUND HEALING. Dietitian name: Lea Gonsalves, DIET RAILROAD INSPECTOR Assessment completed: 08/24/21 Provider comments on imported dietitian assessme nt: Physical Exam General appearance: alert, awake, oriented Head/eyes: atraumatic, PERRLA Cardiovascular: normal heart sounds, normal S1/S 2 Respiratory/chest: on oxygen, respiratory distre ss, tachypneic Abdomen: soft, non-tender, no CVA tenderness Genitourinary: no bladder distention, no flank p ain Extremities: no clubbing, no cyanosis, no edema Musculoskeletal: no muscle spasm Neuro/STAFF SUBMARINE WARFARE OFFICER: alert, oriented X 3 Results Findings/Data: Laboratory Tests 08/28/21 044: [Embedded Image Not Available] Laboratory Tests 08/28 1750 1706 1635 Chemistry Sodium (134 - 147 mEq/L) 143 Potassium (3.4 - 5.0 mEq/L) 3.6 Chloride (100 - 108 mEq/L) 96 L Carbon Dioxide (21 - 33 mEq/l) 38 H Anion Gap (0 - 20) 12 BUN (7 - 18 mg/dL) 33 H Creatinine (0.6 - 1.3 mg/dL) 1.5 H Glomerular Filtr Rate (70 - 80) 46.0 L Glucose (70 - 110 mg/dL) 64 L POC Glucose (70 - 110 MG/DL) 121 H 104 78 69 L Calcium (8.0 - 10.5 mg/dL) 9.6 Magnesium (1.80 - 2.40 mg/dL) 1.80 08/27 08/27 1150 0845 Chemistry POC Glucose (70 - 110 MG/DL) 96 113 H Laboratory Tests 08/28 440 Hematology WBC (4.5 - 11.0 x10 3/uL) 9.0 RBC (4.00 - 5.60 x10 6/uL) 3.32 L Hgb (12.5 - 16.9 g/dL) 8.4 L Hct (37.5 - 50.7 %) 28.1 L MCV (81.0 - 99.0 fL) 84.6 MCH (27.0 - 33.0 pg) 25.3 L MCHC (33.0 - 37.0 g/dL) 29.9 L RDW (11.5 - 14.5 %) 17.2 H Plt Count (150 - 400 x10 3/uL) 258 MPV (7.0 - 9.0 fL) 10.8 H Neut % (Auto) (56.0 - 77.0 %) 61.5 Lymph % (Auto) (14.0 - 32.0 %) 22.8 Ashley % (Auto) (4.8 - 9.0 %) 10.6 H Eos % (Auto) (0.3 - 3.7 %) 3.7 Baso % (Auto) (0.0 - 2.0 %) 1.0 Neut # (Auto) (2.0 - 7.6 x10 3/uL) 5.53 Lymph # (Auto) (1.0 - 3.8 x10 3/uL) 2.05 Ashley # (Auto) (0.1 - 0.8 x10 3/uL) 0.95 H Eos # (Auto) (0.0 - 0.2 x10 3/uL) 0.33 H Baso # (Auto) (0.0 - 0.2 x10 3/uL) 0.09 Abs Immat Gran (auto) (0.00 - 0.03 x10 3/uL) 0. 04 H Add Manual Diff NO Immature Gran % (0.0 - 2.0 %) 0.4 Nucleated RBC % (0 - 0 %) 0.0 Nucleated RBCs # (Man) (0.0 - 0.1 x10 3/uL) 0.0 0 Results: labs reviewed, vital signs reviewed, cu rrent med profile rev'd Treatment Prophylaxis Treatment Prophylaxis Oxygen: CPAP/BIPAP, nasal cannula Diagnosis, Assessment Plan Hospital course to date: ASSESSMENT: - Acute hypercapnic and hypoxic respiratory fail ure secondary to CHF exacerbation, tlmxu-ng-nkiwsat diastolic dysfunc tion. - Acute congestive heart failure exacerbation, a iaxn-vz-mqyufxw. - Hypokalemia. - History of hypertension. - History of hyperlipidemia. - History of atrial fibrillation. - Diabetes type 2. - History of coronary artery disease status post coronary artery bypass graft and percutaneous coronary intervention. - Morbid obesity, body mass index 32.7. - ECHO showed EF 45 to 50% and PAP 57.19 mmHg, m oderate TR and [place]. PLAN: IMCU. Will continue to monitor res piratory status, breathing treatment, oxygen support , and wean the oxygen slowly. Lasix per pay clerk. Follow labs and replace as needed. SCD for DVT prophylaxis. Continue home medication. Glycemic control, Accu-Chek a.c. and at bedtime, sliding scale. Monitor. Consultants: cardiology Code status: full code Plan discussed with: patient, admitting physicia n, consultants, nurse Ava Abarca 08/28/21 1844: Attestations Physician Attestation Agree w/findings plan: Patient seen and examined, c linical data reviewed and I agree with the findings and plan as discussed with and documented by Edwin Patel NP Electronically Signed by Seamus Patel REGULATORY COMPLIANCE DIRECTOR on at 0814 Electronically Signed by Ava Abarca MD on 0 08/28/21 at 1845 RPT #:[id number] END OF REPORT 2021-08-27 12:45:00-00:00 [facility] Cardiology Progress Note REPORT#:[id number] REPORT STATUS: Signed DATE:08/27/21 TIME: 1245 PATIENT: OLIVIA MONROY UNIT #: [id number] ROOM/BED: [place] [id number] : 48 AGE: 70 SEX: M ATTEND: Mykel aRmos A ADM AUTHOR: Vniny Chou MD * ALL edits or amendments must be made on the [employer] document * Subjective Chief complaint: SOB Free Text Subj Notes Free Text Subj Notes: Laying pretty flat. States that breathin g is improved. 6 L level however nasal cannula is not quite in his nose and he is satti ng 100%. Objective General VS/I O: 24 hour I O ending at 0700: 08/27 0700 08/26 1900 Intake Total 694 200 Output Total 1700 200 Balance -1006 0 Intake, Oral 694 200 Number 2 Bowel Movements Number 10 4 Incontinent Voids Number Voids 3 Output, Urine 1700 200 Vital Signs: Date Time Temp Pulse Resp B/P B/P Pulse O2 O2 F low FiO2 Mean Ox Delivery Rate 08/27 1200 97.4 84 16 110/53 72 100 High flow 6 nasal cannula 08/27 1200 84 16 110/53 77 100 08/27 1001 104 40 96/48 69 92 08/27 0942 86 17 109/50 72 99 08/27 0900 97.7 86 17 109/50 69 99 Room air 08/27 0801 107 17 138/92 106 99 08/27 0701 65 17 93/73 79 100 08/27 0611 88 16 101/65 76 98 08/27 0500 100 Nasal 6 cannula 08/27 0500 102 14 116/72 88 100 08/27 0400 98.3 08/27 0400 79 14 109/59 76 100 08/27 0300 86 28 98/60 73 100 08/27 0200 85 19 90/56 65 100 08/27 0100 93.2 08/27 0100 77 14 100/53 73 100 08/27 0044 97 22 91/53 65 97 08/27 0043 59 95/60 71.9 08/27 0037 97.7 08/27 0013 High flow 6 nasal cannula 08/27 0010 87 28 97/50 66 91 08/27 0000 84 100 40 08/26 2312 105 14 105/55 72 100 08/26 2200 85 8 105/66 81 99 08/26 2120 BiPAP 50 08/26 2101 75 25 97/53 70 91 08/26 2001 85 23 143/60 87 100 08/26 1943 97.5 08/26 1930 High flow 6 nasal cannula 08/26 1915 83 20 116/65 82 100 08/26 1905 High flow 6 nasal cannula 08/26 1900 98.7 08/26 1813 97.7 83 15 126/63 0.0 100 08/26 1701 68 25 114/55 79 95 08/26 1700 97.7 68 15 114/55 74 100 High flow 8 nasal cannula 08/26 1600 77 23 126/60 86 100 08/26 1525 100 High flow 6 nasal cannula 08/26 1500 81 15 115/66 85 100 08/26 1400 84 109/70 83 98 08/26 1300 97.9 73 21 126/56 79 94 High flow 8 nasal cannula 08/26 1300 73 25 116/58 84 94 PATIENT WEIGHT: Weight (lb): Weight (oz): Weight (kg): 118.800 Medications: Active Meds + DC'd Last 24 Hrs Carvedilol (COREG) 12.5 MG BID@0900,2100 PO Potassium Chloride (POTASSIUM CHLORIDE 20MEQ TAB .ER) 20 MEQ BID 9A 5P PO Torsemide (DEMADEX) 40 MG BID 9A 5P PO Magnesium Oxide (MAG-OX 400) 400 MG BID PO Rivaroxaban (XARELTO 20MG) 20 MG DAILY 1700 PO Acetaminophen (TYLENOL) 325 MG Q4H PRN PRN PO Atorvastatin Calcium (LIPITOR) 40 MG 2100 PO Mupirocin (BACTROBAN 2% 22 GM OINTMENT) 1 APPLIC BID NASAL (DC) Aripiprazole (ABILIFY) 30 MG DAILY PO Aspirin (ASPIRIN) 81 MG DAILY PO Bupropion HCl (WELLBUTRIN) 100 MG QAM PO Glipizide (GLUCOTROL) 10 MG DAILY PO Losartan Potassium (COZAAR) 100 MG DAILY PO Metformin HCl (GLUCOPHAGE) 1,000 MG BID PO Albuterol Sulfate (ALBUTEROL SULFATE) 1.25 MG RT Q4H PRN PRN NEB Physical Exam General appearance: alert, awake, no acute distr ess Head/Eyes: atraumatic, normal conjunctiva/sclera , normocephalic ENT: moist mucosal membranes, normal pharynx Neck: full range of motion, supple/no meningismu s Cardiovascular: CV assessment: ectopy Murmur assessment: 2/6 sm Respiratory: decreased breath sounds, on oxygen, no distress Abdomen: soft, non-tender, no distention Upper extremity: UE assessment: normal temperature, no clubbing, no cyanosis Lower extremity: LE assessment: edema, normal temperature, no cl ubbing, no cyanosis Musculoskeletal: full range of motion, normal in spection Neuro/STAFF SUBMARINE WARFARE OFFICER: alert, normal speech Skin: poor skin turgor, dry Results Findings/Data: Laboratory Tests 08/27 08/27 08/27 08/27 08/26 1150 0845 0648 0407 2106 Chemistry POC Glucose (70 - 110 MG/DL) 96 113 H 96 67 L 7 4 08/26 1814 Chemistry POC Glucose (70 - 110 MG/DL) 83 Results: labs reviewed, vital signs revi ewed, rhythm personally rev'd, current med profile rev'd Diagnosis, Assessment Plan Consultants: cardiology Free Text DxA P Notes Free Text DxA P Notes: 1. Acute congestive heart failure 2. Coronary atherosclerosis with prior CABG and prior PCI 3. Accelerated hypertension 4. Adult failure to thrive - prior prolonged hos pitalization 5. Diabetes mellitus 6. Normocytic anemia 7. Paroxysmal afib 8. 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 We will g et echo. Place on IV lasix to diurese and use BIPAP as well. Serial troponin i s negative. This does not represent ACS situation but rather likely an acute HF exacerbation. He will need to be put on higher maintena nce dose at discharge. For now, we know that he has prior 3vCABG per report as pancho jewell as prior remote PCI. is a big proponent for [facility] system for cardiac care and only want s cardiologists who have privileges there. For now, pancho wise will give him IV lasix and get the echo to see if any new systolic dysfunction has occurre d. Further recommendations after that. Monitor on telemetry, appears to be at s inus rhythm on admission. Need to have RN reconcile medications. Ne ed to see what the HGb trends, compared to last year is significantly reduced, but has recent chronic prolonged hospitalization, likely component anemia of chronic disease. 08/23/2021 Awaiting echocardiogram. He has been receiving I V Lasix 80 mg twice daily. He received a dose of 80 in the afternoon y ester and another one just now this morning. Prior to that I believe that he received about 60 mg in the emergency department yesterday. Per nursing report they at tempted to put a condom catheter however several sizes did not f it adequately. Also per nursing he has urinated in the bed several times. Thus it is mallory rd to know how well he is urinating. Obtain chest x-ray tomorrow. He repor ts that his breathing status is improved overall. Still on significant oxygen . They report no recent PCI. They also report that the patient was on Xarelto . As such we will see about starting that and discontinuing either the aspir in or the Plavix. As such, we will also need to monitor that hemoglobin. 08/24/2021 The patient has LVEF in the upper 40's, wall motion indicative and suggestive of prior CABG and prior scarrin g in certain areas. In either case, volume status is improving. He is now on Xare lto - no Hgb yet this AM. Also no labs yet this AM. He is on IV lasix, oxygen sats improving and wea branden down the oxygen. We will see if we can transition him to orals tomorrow. Plavix has been discontinued as well. Spoke with on the phone today to cristian barajas her [phone]. 08/25/2021 Some tachycardia on telemetry, oxygen requiremen ts improving, feeling better. Some hypertensive values. We will increase the beta mariaa dose. The xarelto is being tolerated. We will als o increase potassium and magnesium standing orders. On torsemide currently. Keisha tor overall - may require dose adjustment downwards after several days if he is still diuresing nice ly on this oral regimen. 08/26/2021 Change metoprolol to carvedilol for improved blo od pressure control. We will see about giving him metolazone. Obtain electrol ytes. Obtain hemoglobin. Obtain magnesium. Continue to monitor. We will a lso get chest x-ray. Oxygen requirements improving yet still there. 08/27/2021 Patient is laying flat. On 6 L however nasal can nula is not quite in his nose and he is satting 100%. Chest x-ray is o verall improved. Still with little bit of volume. We will give another dose of metolazo ne today. Continue to monitor otherwise. Order electrolytes. Electronically Signed by Vinny Chou MD on at 1249 RPT #:[id number] END OF REPORT 2021-08-27 10:32:00-00:00 [facility] Internal Medicine Prog. Note REPORT#:[id number] REPORT STATUS: Signed DATE:08/27/21 TIME: 1032 PATIENT: OLIVIA MONROY UNIT #: [id number] ROOM/BED: [place] [id number] : 48 AGE: 70 SEX: M ATTEND: Mykel Ramos A ADM AUTHOR: Jovi Reyes MD * ALL edits or amendments must be made on the [employer] document * Subjective Chief complaint: breathing improved down to 6 LPM. NO CP, fever, chills. NO N/v/D. BP and HR stable. Review of Systems All systems rev neg: except as marked Objective General VS/I O: Vital Signs Date Temp Pulse Resp B/P B/P Mean Pulse Ox FiO2 08/26-08/27 93.2-98.7 59-105 8-28 90-143/50-72 0.0-88 91-100 40-50 Last Documented: Result Date Time Pulse Ox 98 08/27 0611 B/P 101/65 08/27 0611 B/P Mean 76 08/27 0611 Pulse 88 08/27 0611 Resp 16 08/27 0611 O2 Delivery Nasal cannula 08/27 0500 O2 Flow Rate 6 08/27 0500 Temp 98.3 08/27 0400 FiO2 40 08/27 0000 24 hour I O ending at 0700: 08/27 0700 08/26 1900 Intake Total 694 200 Output Total 1700 200 Balance -1006 0 Intake, Oral 694 200 Number 2 Bowel Movements Number 10 4 Incontinent Voids Number Voids 3 Output, Urine 1700 200 PATIENT WEIGHT: Weight (lb): Weight (oz): Weight (kg): 118.800 Physical Exam Head/Eyes: atraumatic, EOMI ENT: moist mucosal membranes Neck: full range of motion, non-tender Cardiovascular: normal heart sounds, regular rat e rhythm Respiratory: crackles, on oxygen, symmetric expa nsion Abdomen: non-tender, normal bowel sounds, soft Extremities: Extremities: edema Musculoskeletal: full range of motion, normal in spection Neuro/STAFF SUBMARINE WARF[employer] OFFICER: alert, oriented x 3 Psychiatry: normal affect, normal judgement/insi ght, normal mood Results Findings/Data: Laboratory Tests 08/26/21 1227: [Embedded Image Not Available] 08/26/21 1227: [Embedded Image Not Available] Laboratory Tests 08/27 08/27 08/27 08/26 08/26 0845 0648 0407 2106 1814 Chemistry POC Glucose (70 - 110 MG/DL) 113 H 96 67 L 74 83 08/26 08/26 08/26 1227 1227 1206 Chemistry Sodium (134 - 147 mEq/L) 145 Potassium (3.4 - 5.0 mEq/L) 3.7 Chloride (100 - 108 mEq/L) 99 L Carbon Dioxide (21 - 33) 33 > 40 H Anion Gap (0 - 20) 10 BUN (7 - 18 mg/dL) 24 H Creatinine (0.6 - 1.3 mg/dL) 1.1 Glomerular Filtr Rate (70 - 80) 65.8 L Glucose (70 - 110 mg/dL) 77 POC Glucose (70 - 110 MG/DL) 89 Calcium (8.0 - 10.5 mg/dL) 9.7 Magnesium (1.80 - 2.40 mg/dL) 1.90 Laboratory Tests 08/26 1227 Hematology WBC (4.5 - 11.0 x10 3/uL) 8.2 RBC (4.00 - 5.60 x10 6/uL) 3.56 L Hgb (12.5 - 16.9 g/dL) 8.7 L Hct (37.5 - 50.7 %) 30.1 L MCV (81.0 - 99.0 fL) 84.6 MCH (27.0 - 33.0 pg) 24.4 L MCHC (33.0 - 37.0 g/dL) 28.9 L RDW (11.5 - 14.5 %) 17.0 H Plt Count (150 - 400 x10 3/uL) 298 MPV (7.0 - 9.0 fL) 9.9 H Neut % (Auto) (56.0 - 77.0 %) 63.8 Lymph % (Auto) (14.0 - 32.0 %) 21.3 Ashley % (Auto) (4.8 - 9.0 %) 11.2 H Eos % (Auto) (0.3 - 3.7 %) 2.0 Baso % (Auto) (0.0 - 2.0 %) 1.3 Neut # (Auto) (2.0 - 7.6 x10 3/uL) 5.22 Lymph # (Auto) (1.0 - 3.8 x10 3/uL) 1.74 Ashley # (Auto) (0.1 - 0.8 x10 3/uL) 0.92 H Eos # (Auto) (0.0 - 0.2 x10 3/uL) 0.16 Baso # (Auto) (0.0 - 0.2 x10 3/uL) 0.11 Abs Immat Gran (auto) (0.00 - 0.03 x10 3/uL) 0. 03 Add Manual Diff NO Immature Gran % (0.0 - 2.0 %) 0.4 Nucleated RBC % (0 - 0 %) 0.0 Nucleated RBCs # (Man) (0.0 - 0.1 x10 3/uL) 0. 00 Radiology data: Recent Impressions: RADIOLOGY - XR CHEST 1 V 08/26 112 Report Impression - Status: SIGNED Entered: 08/26/2021 1848 IMPRESSION: 1. Npfx-bj-mltsoizk pulmonary edema versus infil trates. Improvement. 2. Mild enlarged cardiac silhouette. 3. Degenerative and postsurgical changes are dem onstrated, as described above. Impression By: [email or web address] - Morteza Bowles M.D. Results: labs reviewed, vital signs reviewed Diagnosis, Assessment Plan Consultants: cardiology Free Text DxA P Notes Free text DxA P notes: ASSESSMENT: - Acute hypercapnic and hypoxic respiratory fail ure secondary to CHF exacerbation, gktor-kb-nvinfti diastolic dysfunc tion. - Acute congestive heart failure exacerbation, a ppur-yo-femvfcn. - History of hypertension. - History of hyperlipidemia. - History of atrial fibrillation. - Diabetes type 2. - History of coronary artery disease status post coronary artery bypass graft and percutaneous coronary intervention. - Morbid obesity, body mass index 32.7. PLAN: IMCU. ECHO showed EF 45 to 50% and PAP 57.19 mmHg, mod erate TR and [place]. Will continue to monitor res piratory status, breathing treatment, oxygen support , and wean the oxygen slowly. Lasix per pay clerk. Follow labs and replace as needed. SCD for DVT prophylaxis. Continue home medication. Glycemic control, Accu-Chek a.c. and at bedtime, sliding scale. Monitor. DC planning: pending acceptance to [facility] Electronically Signed by Jovi Reyes MD on 2 at 1033 RPT #:[id number] END OF REPORT 2021-08-26 11:22:00-00:00 [facility] REPORT#:[id number] REPORT STATUS: Signed DATE:08/26/21 TIME: 1121 PATIENT: OLIVIA MONROY UNIT #: [id number] ROOM/BED: 605-1 : 48 AGE: 70 SEX: M ATTEND: Mykel Ramos A ADM AUTHOR: Jovi Reyes MD * ALL edits or amendments must be made on the [employer] document * Subjective Chief complaint: some SOB overnght, feeling better this morning currently on 14L NC Still having sob with exertion. NO CP, fever, chills. NO N/v/D. BP and HR stable. Review of Systems All systems rev neg: except as marked Objective General VS/I O: Vital Signs Date Temp Pulse Resp B/P B/P Mean Pulse Ox FiO2 08/25-08/26 97.0-98.3 72-110 15-34 110-165/57-10 0.0-124 88-100 50-100 2 Last Documented: Result Date Time Pulse Ox 94 08/26 0809 B/P 154/65 08/26 0809 B/P Mean 0.0 08/26 0809 Temp 97.0 08/26 0809 Pulse 107 08/26 0809 Resp 20 08/26 0809 FiO2 50 08/26 0402 O2 Delivery High flow nasal cannula 08/26 2131 O2 Flow Rate 9 08/26 2131 24 hour I O ending at 0700: 08/26 0700 08/25 1900 Intake Total 850 Output Total 350 Balance 500 Intake, Oral 850 Number 3 Bowel Movements Number 12 Incontinent Voids Number Voids 2 Output, Urine 350 PATIENT WEIGHT: Weight (lb): Weight (oz): Weight (kg): 118.800 Physical Exam General appearance: alert, awake, oriented Head/Eyes: atraumatic, EOMI ENT: moist mucosal membranes Neck: full range of motion, non-tender Cardiovascular: normal heart sounds, regular rat e rhythm Respiratory: crackles, on oxygen, symmetric expa nsion Abdomen: non-tender, normal bowel sounds, soft Extremities: Extremities: edema Musculoskeletal: full range of motion, normal in spection Neuro/STAFF SUBMARINE WARFARE OFFICER: alert, oriented x 3 Psychiatry: normal affect, normal judgement/insi ght, normal mood Results Findings/Data: Laboratory Tests 08/26 08/25 08/25 08/25 0808 1919 1636 1125 Chemistry POC Glucose (70 - 110 MG/DL) 109 94 82 117 H Results: labs reviewed, vital signs reviewed Diagnosis, Assessment Plan Consultants: cardiology Free Text DxA P Notes Free text DxA P notes: ASSESSMENT: - Acute hypercapnic and hypoxic respiratory fail ure secondary to CHF exacerbation, zcahn-hl-ebhfdly diastolic dysfunc tion. - Acute congestive heart failure exacerbation, a bizw-es-rggazbi. - History of hypertension. - History of hyperlipidemia. - History of atrial fibrillation. - Diabetes type 2. - History of coronary artery disease status post coronary artery bypass graft and percutaneous coronary intervention. - Morbid obesity, body mass index 32.7. PLAN: IMCU. ECHO showed EF 45 to 50% and PAP 57.19 mmHg, mod erate TR and [place]. Will continue to monitor res piratory status, breathing treatment, oxygen support , and wean the oxygen slowly. Lasix per pay clerk. Follow labs and replace as needed. SCD for DVT prophylaxis. Continue home medication. Glycemic control, Accu-Chek a.c. and at bedtime, sliding scale. Monitor. DC planning: pending acceptance to [facility] Electronically Signed by Jovi Reyes MD on 2 at 1125 RPT #:[id number] END OF REPORT 2021-08-26 11:19:00-00:00 [facility] REPORT#:[id number] REPORT STATUS: Signed DATE:08/26/21 TIME: 1119 PATIENT: OLIVIA MONROY UNIT #: [id number] ROOM/BED: [place] [address] : 48 AGE: 70 SEX: M ATTEND: Mykel Ramos A ADM AUTHOR: Vinny Chou MD * ALL edits or amendments must be made on the [employer] document * Subjective Chief complaint: SOB Free Text Subj Notes Free Text Subj Notes: Patient claims that he is not urinating much. St ates that breathing is improved. Objective General VS/I O: 24 hour I O ending at 0700: 08/26 0700 08/25 1900 Intake Total 850 Output Total 350 Balance 500 Intake, Oral 850 Number 3 Bowel Movements Number 12 Incontinent Voids Number Voids 2 Output, Urine 350 Vital Signs: Date Time Temp Pulse Resp B/P B/P Pulse O2 O2 F low FiO2 Mean Ox Delivery Rate 08/26 0809 97.0 107 20 154/65 0.0 94 08/26 0801 110 24 154/65 93 94 08/26 0700 109 22 159/102 124 04/23 0503 110/77 88 08/26 0402 98 99 50 08/26 0400 98.0 08/26 0200 79 29 145/73 99 08/26 0000 97.9 08/26 0000 106 30 142/83 106 90 08/25 2300 88 15 133/82 101 91 08/25 2201 103 123/57 82 100 08/25 2132 106 100 50 08/252 92 High flow 9 100 nasal cannula 08/25 2100 87 24 165/62 93 91 08/25 2000 108 08/25 2000 97.8 08/26 1999 34 148/76 103 88 08/25 1900 102 28 138/71 96 89 08/25 1700 103 139/66 90 08/25 1700 98.3 103 22 139/66 90 92 High flow 7 nasal cannula 08/25 1636 95 27 138/66 93 08/25 1600 90 08/25 1515 72 138/65 94 91 08/25 1300 97.8 82 22 127/60 82 92 High flow 7 nasal cannula 08/25 1300 82 92 08/25 1200 72 127/60 87 92 PATIENT WEIGHT: Weight (lb): Weight (oz): Weight (kg): 118.800 Medications: Active Meds + DC'd Last 24 Hrs Metoprolol Tartrate (LOPRESSOR) 100 MG BID PO Potassium Chloride (POTASSIUM CHLORIDE 20MEQ TAB .ER) 20 MEQ BID 9A 5P PO Torsemide (DEMADEX) 40 MG BID 9A 5P PO Magnesium Oxide (MAG-OX 400) 400 MG BID PO Rivaroxaban (XARELTO 20MG) 20 MG DAILY 1700 PO Acetaminophen (TYLENOL) 325 MG Q4H PRN PRN PO Atorvastatin Calcium (LIPITOR) 40 MG 2100 PO Mupirocin (BACTROBAN 2% 22 GM OINTMENT) 1 APPLIC BID NASAL Aripiprazole (ABILIFY) 30 MG DAILY PO Aspirin (ASPIRIN) 81 MG DAILY PO Bupropion HCl (WELLBUTRIN) 100 MG QAM PO Glipizide (GLUCOTROL) 10 MG DAILY PO Losartan Potassium (COZAAR) 100 MG DAILY PO Metformin HCl (GLUCOPHAGE) 1,000 MG BID PO Albuterol Sulfate (ALBUTEROL SULFATE) 1.25 MG RT Q4H PRN PRN NEB Physical Exam General appearance: alert, awake, no acute distr ess Head/Eyes: atraumatic, normal conjunctiva/sclera , normocephalic ENT: moist mucosal membranes, normal pharynx Neck: full range of motion, supple/no meningismu s Cardiovascular: CV assessment: ectopy Murmur assessment: 2/6 sm Respiratory: decreased breath sounds, on oxygen, no distress Abdomen: soft, non-tender, no distention Upper extremity: UE assessment: normal temperature, no clubbing, no cyanosis Lower extremity: LE assessment: edema, normal temperature, no cl ubbing, no cyanosis Musculoskeletal: full range of motion, normal in spection Neuro/STAFF SUBMARINE WARFARE OFFICER: alert, normal speech Skin: poor skin turgor, dry Results Findings/Data: Laboratory Tests 08/26 08/25 08/25 08/25 0808 1919 1636 1125 Chemistry POC Glucose (70 - 110 MG/DL) 109 94 82 117 H Results: labs reviewed, rhythm personally rev'd, current med profile rev'd Diagnosis, Assessment Plan Consultants: cardiology Free Text DxA P Notes Free Text DxA P Notes: 1. Acute congestive heart failure 2. Coronary atherosclerosis with prior CABG and prior PCI 3. Accelerated hypertension 4. Adult failure to thrive - prior prolonged hos pitalization 5. Diabetes mellitus 6. Normocytic anemia 7. Paroxysmal afib 8. 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 We will g et echo. Place on IV lasix to diurese and use BIPAP as well. Serial troponin i s negative. This does not represent ACS situation but rather likely an acute HF exacerbation. He will need to be put on higher maintena nce dose at discharge. For now, we know that he has prior 3vCABG per report as pancho jewell as prior remote PCI. is a big proponent for [facility] system for cardiac care and only want s cardiologists who have privileges there. For now, pancho wise will give him IV lasix and get the echo to see if any new systolic dysfunction has occurre d. Further recommendations after that. Monitor on telemetry, appears to be at s inus rhythm on admission. Need to have RN reconcile medications. Ne ed to see what the HGb trends, compared to last year is significantly reduced, but has recent chronic prolonged hospitalization, likely component anemia of chronic disease. 08/23/2021 Awaiting echocardiogram. He has been receiving I V Lasix 80 mg twice daily. He received a dose of 80 in the afternoon y and another one just now this morning. Prior to that I believe that he received about 60 mg in the emergency department yesterday. Per nursing report they at tempted to put a condom catheter however several sizes did not f it adequately. Also per nursing he has urinated in the bed several times. Thus it is mallory rd to know how well he is urinating. Obtain chest x-ray tomorrow. He repor ts that his breathing status is improved overall. Still on significant oxygen . They report no recent PCI. They also report that the patient was on Xarelto . As such we will see about starting that and discontinuing either the aspir in or the Plavix. As such, we will also need to monitor that hemoglobin. 08/24/2021 The patient has LVEF in the upper 40's, wall motion indicative and suggestive of prior CABG and prior scarrin g in certain areas. In either case, volume status is improving. He is now on Xare lto - no Hgb yet this AM. Also no labs yet this AM. He is on IV lasix, oxygen sats improving and wea branden down the oxygen. We will see if we can transition him to orals tomorrow. Plavix has been discontinued as well. Spoke with on the phone today to cristian karl her [phone]. 08/25/2021 Some tachycardia on telemetry, oxygen requiremen ts improving, feeling better. Some hypertensive values. We will increase the beta mariaa dose. The xarelto is being tolerated. We will als o increase potassium and magnesium standing orders. On torsemide currently. Keisha tor overall - may require dose adjustment downwards after several days if he is still diuresing nice ly on this oral regimen. 08/26/2021 Change metoprolol to carvedilol for improved blo od pressure control. We will see about giving him metolazone. Obtain electrol ytes. Obtain hemoglobin. Obtain magnesium. Continue to monitor. We will a lso get chest x-ray. Oxygen requirements improving yet still there. Electronically Signed by Vinny Chou MD on at 1122 RPT #:[id number] END OF REPORT 2021-08-25 11:32:00-00:00 [id number] [address] PATIENT NAME: OLIVIA MONROY ADMIT DATE: ACCOUNT NO: [id number] ROOM NO: G.524 AGE: 70 REPORT TYPE: DISCHARGE SUMMARY SEX: M ADMITTING PHYSICIAN:Benedicto Ramos MD ATTENDING PHYSICIAN:Benedicto Ramos MD ADMISSION DATE: 08/22/2021 DISCHARGE DATE: HOSPITAL COURSE: A 70-year-o ld male with past medical history positive for CHF, COPD, paroxysmal atrial fibr illation, coronary artery bypass graft x3, diabetes mellitus type 2, sleep apnea . The patient was transferred from [facility] due to worsening shortness of breath. He was found to h ave congestive heart failure, started on IV Lasix. He was changed to torsemide . The patient is doing much, much better. He is going to be transferred to a alf facility. Card Assembler, Dr. Effie kebede w the patient from the cardiac point of view and Dr. Abarca from the pulmonary point of view. PHYSICAL EXAMINATION: HEART: Showed regular rhythm. Normal S1, S2 soun ds. LUNGS: Clear bilaterally. ABDOMEN: Soft. EXTREMITIES: Showed no edema. OBJECTIVE: VITAL SIGNS: Blood pressure 145/67, temp erature 36.7 degrees centigrade, heart rate 102 per minute, respira tory rate 26 per minute, and oxygen saturation 93%. LABORATORY DATA: On the CBC; white blood count 7.6, hemoglobin 8.0, hematocrit 37.5, and platelet count 295,000. On the BMP; so dium 143, potassium 3.4, chloride 100, CO2 of 38, BUN 16, creatinine 1.0, glucose 116. FINAL IMPRESSION: 1. Episode of pulmonary edema secondary to systo lic congestive heart failure. 2. Bilateral pneumonia. 3. Obstructive sleep apnea. 4. Chronic atrial fibrillation. 5. Acute hypoxic respiratory failure, which has resolved. 6. Uncontrolled diabetes mellitus type 2. PLAN OF TREATMENT: The patient is going to be transferred to a alf facility to continue physical and occupational t herapy. Continue monitoring, BUN, creatinine, electrolytes. Continue metoprol ol 100 mg twice a day, potassium chloride 20 mEq twice a day. Continue with torsemide 40 mg twice a day, magnesium oxide 400 mg twice a day, Xarelto 20 mg daily because of the atrial fibrillation. Continue Tylenol 32 5 mg q.4h as needed for pain or fever. Potassium and magnesium will be replaced yesterd ay. 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 Continue Lipitor 40 mg daily. Continue glipizide 10 mg daily, bupropion 100 mg daily, aspirin 81 mg PATIENT NAME: OLIVIA MONROY [id number] daily, Abilify 30 mg daily, Cozaar 100 mg daily. Continue monitoring blood sugar a.c. and at bedtime. Continue metf ormin 100 mg twice a day and albuterol q.4h as needed for shortness of breath. Continue diabetic low-salt diet. The patient is going to be transferred to a alf facility tomorrow. The patient hopefully will go today. Dictated By: Benedicto Ramos MD WT: DS:EUSEBIO/TESFAYE/SARINA Conf#: [id number]/DID#: [id number] Authenticated by Benedicto Ramos MD On 09/01/19 01:33:04 PM at 0133 PATIENT NAME: OLIVIA MONROY [id number] 2021-08-25 10:33:00-00:00 [facility]) Pulmonology Progress Note REPORT#:[id number] REPORT STATUS: Signed DATE:08/25/21 TIME: 1033 PATIENT: OLIVIA MONROY UNIT #: [id number] ROOM/BED: [place] [id number] : 48 AGE: 70 SEX: M ATTEND: Mary Ramos MD ADM AUTHOR: Seamus Patel REGULATORY COMPLIANCE DIRECTOR * ALL edits or amendments must be made on the [employer]/computer document * Seamus Patel 08/25/21 1033: Subjective Chief complaint: He is feeling better. Still having sob with exertion. On 8 liter NC. NO CP, fever, chills. NO N/v/D. BP and HR stable. Review of Systems ROS Constitutional: fatigue, generalized weakness. Skin: Denies: bruising, diaphoresis, ecchymosis, itchi ng. Eyes: Denies: discharge, visual loss/blurred, diplopia , eye pain. Respiratory: Reports: CHRISTENSEN (dyspnea on exertion), SOB. Cardiovascular: Denies: edema, orthopnea, palpitations. GI: Denies: abdominal pain, constipation, diarrhea, GERD, hiatal hernia. : Denies: dysuria, flank pain, hematuria, penile d ischarge, penile lesion, testicular pain. Musculoskeletal: Denies: extremity swelling, joint swelling, lumb ar pain, myalgias. Endocrine: Denies: polydipsia, polyphagia, polyuria. Neuro: Denies: bowel dysfunction, c hange in LOC, confusion, dizziness, focal weakness, gait problem, numbness. Objective General VS/I O: Last Documented: Result Date Time Pulse Ox 93 08/25 925 B/P 145/67 08/25 925 B/P Mean 96 08/25 925 Pulse 102 08/25 925 Resp 26 08/25 925 O2 Delivery High flow nasal cannula 08/25 921 O2 Flow Rate 8 08/25 921 Temp 36.7 08/25 899 FiO2 50 08/23 0229 PATIENT WEIGHT: Weight (lb): Weight (oz): Weight (kg): 118.800 Medications: Active Meds + DC'd Last 24 Hrs Metoprolol Tartrate (LOPRESSOR) 100 MG BID PO (U NV) Potassium Chloride (POTASSIUM CHLORIDE 20MEQ TAB .ER) 20 MEQ BID 9A 5P PO (UNVr) Magnesium Oxide (MAG-OX 400) 400 MG DAILY PO (U NVr) Metoprolol Tartrate (LOPRESSOR) 50 MG ONCE ONE P O (UNV) Metoprolol Tartrate (LOPRESSOR) 50 MG BID PO (DC r) Potassium Chloride (POTASSIUM CHLORIDE 20MEQ TAB .ER) 20 MEQ DAILY PO ( DCr) Metoprolol Tartrate (LOPRESSOR) 25 MG NOW ONE PO (DC) Torsemide (DEMADEX) 40 MG BID 9A 5P PO Magnesium Oxide (MAG-OX 400) 400 MG BID PO Rivaroxaban (XARELTO 20MG) 20 MG DAILY 1700 PO Acetaminophen (TYLENOL) 325 MG Q4H PRN PRN PO Potassium Chloride (POTASSIUM CHLORIDE 20MEQ TAB .ER) 40 MEQ ONCE ONE PO (CAN) Magnesium Sulfate (MAGNESIUM SULFATE 4GM/SWFI 10 0ML) 100 ML ONCE ONE IV (DC) Potassium Chloride (POTASSIUM CHLORIDE 20MEQ TAB .ER) 40 MEQ ONCE ONE PO (DC) Potassium Chloride (POTASSIUM CHLORIDE 20MEQ TAB .ER) 40 MEQ DAILY PRN PRN PO (DC) Atorvastatin Calcium (LIPITOR) 40 MG 2100 PO Mupirocin (BACTROBAN 2% 22 GM OINTMENT) 1 APPLIC BID NASAL Aripiprazole (ABILIFY) 30 MG DAILY PO Aspirin (ASPIRIN) 81 MG DAILY PO Bupropion HCl (WELLBUTRIN) 100 MG QAM PO Carvedilol (COREG) 25 MG DAILY PO (DC) Glipizide (GLUCOTROL) 10 MG DAILY PO Losartan Potassium (COZAAR) 100 MG DAILY PO Metformin HCl (GLUCOPHAGE) 1,000 MG BID PO Furosemide (LASIX 40 mg/4 mL INJECTION) 80 MG BI D 9A 5P IV (DC) Albuterol Sulfate (ALBUTEROL SULFATE) 1.25 MG RT Q4H PRN PRN NEB Nutrition assessment: The data set between the solid lines has been im ported from the dietitian's assessment. Any exceptions have been noted under Provider comments. BMI Calculated: 32.7 Nutrition related diagnosis: Nutrition diagnosis details: Nutrition problem: Increased nutrient needs Nutrition etiology: Wound healing Nutrition signs and symptoms: Stage 2 sacrum Nutrition prescription: 1. C ONTINUE DIABETIC DIET TOLERATED. 2. ENCOURAGE PO INTAKE AND HONOR FOOD PREFERANCES. 3. PROVIDE GL UCERNA BID AND WILTON BID TO SUPPLEMENT MEALS AND AID IN WOUND HEALING. Dietitian name: Lea Gonsalves, DIET RAILROAD INSPECTOR Assessment completed: 08/24/21 Provider comments on imported dietitian assessme nt: Physical Exam General appearance: alert, awake, oriented Head/eyes: atraumatic, PERRLA Cardiovascular: normal heart sounds, normal S1/S 2 Respiratory/chest: on oxygen, respiratory distre ss, tachypneic Abdomen: soft, non-tender, no CVA tenderness Genitourinary: no bladder distention, no flank p ain Extremities: no clubbing, no cyanosis, no edema Musculoskeletal: no muscle spasm Neuro/STAFF SUBMARINE WARFARE OFFICER: alert, oriented X 3 Results Findings/Data: Laboratory Tests 08/25/21 0450: [Embedded Image Not Available] 08/24/21 1123: [Embedded Image Not Available] 08/24/21 1123: [Embedded Image Not Available] Laboratory Tests 08/25 08/25 08/24 08/24 08/24 0736 0450 1946 1512 1123 Chemistry Sodium (134 - 147 mEq/L) 143 Potassium (3.4 - 5.0 mEq/L) 3.4 Chloride (100 - 108 mEq/L) 100 Carbon Dioxide (21 - 33 mEq/l) 38 H Anion Gap (0 - 20) 8 BUN (7 - 18 mg/dL) 16 Creatinine (0.6 - 1.3 mg/dL) 1.0 Glomerular Filtr Rate (70 - 80) 73.5 Glucose (70 - 110 mg/dL) 117 H POC Glucose (70 - 110 MG/DL) 126 H 116 H 99 Calcium (8.0 - 10.5 mg/dL) 9.4 Magnesium (1.80 - 2.40 mg/dL) 2.02 1.67 L 08/24 08/24 08/24 1123 1123 1113 Chemistry Sodium (134 - 147 mEq/L) 144 Potassium (3.4 - 5.0 mEq/L) 3.2 L Chloride (100 - 108 mEq/L) 99 L Carbon Dioxide (21 - 33) 32 > 40 H Anion Gap (0 - 20) 8 BUN (7 - 18 mg/dL) 19 H Creatinine (0.6 - 1.3 mg/dL) 1.0 Glomerular Filtr Rate (70 - 80) 73.5 Glucose (70 - 110 mg/dL) 130 H POC Glucose (70 - 110 MG/DL) 128 H Calcium (8.0 - 10.5 mg/dL) 9.9 Laboratory Tests 08/24 1123 Hematology WBC (4.5 - 11.0 x10 3/uL) 7.6 RBC (4.00 - 5.60 x10 6/uL) 3.27 L Hgb (12.5 - 16.9 g/dL) 8.0 L Hct (37.5 - 50.7 %) 27.5 L MCV (81.0 - 99.0 fL) 84.1 MCH (27.0 - 33.0 pg) 24.5 L MCHC (33.0 - 37.0 g/dL) 29.1 L RDW (11.5 - 14.5 %) 16.4 H Plt Count (150 - 400 x10 3/uL) 285 MPV (7.0 - 9.0 fL) 9.7 H Neut % (Auto) (56.0 - 77.0 %) 72.9 Lymph % (Auto) (14.0 - 32.0 %) 13.9 L Ashley % (Auto) (4.8 - 9.0 %) 9.0 Eos % (Auto) (0.3 - 3.7 %) 2.6 Baso % (Auto) (0.0 - 2.0 %) 1.2 Neut # (Auto) (2.0 - 7.6 x10 3/uL) 5.57 Lymph # (Auto) (1.0 - 3.8 x10 3/uL) 1.06 Ashley # (Auto) (0.1 - 0.8 x10 3/uL) 0.69 Eos # (Auto) (0.0 - 0.2 x10 3/uL) 0.20 Baso # (Auto) (0.0 - 0.2 x10 3/uL) 0.09 Abs Immat Gran (auto) (0.00 - 0.03 x10 3/uL) 0. 03 Add Manual Diff NO Immature Gran % (0.0 - 2.0 %) 0.4 Nucleated RBC % (0 - 0 %) 0.0 Nucleated RBCs # (Man) (0.0 - 0.1 x10 3/uL) 0.0 0 Results: labs reviewed, noman l signs reviewed, x-ray personally reviewed, current med profile rev'd Treatment Prophylaxis Treatment Prophylaxis Oxygen: CPAP/BIPAP, nasal cannula Diagnosis, Assessment Plan Hospital course to date: ASSESSMENT: - Acute hypercapnic and hypoxic respiratory fail ure secondary to CHF exacerbation, [id number] diastolic dysfunc tion. - Acute congestive heart failure exacerbation, a [id number]. - Hypokalemia. - History of hypertension. - History of hyperlipidemia. - History of atrial fibrillation. - Diabetes type 2. - History of coronary artery disease status post coronary artery bypass graft and percutaneous coronary intervention. - Morbid obesity, body mass index 32.7. - ECHO showed EF 45 to 50% and PAP 57.19 mmHg, m oderate TR and [place]. PLAN: IMCU. Will replace K. Will continue to monitor res piratory status, breathing treatment, oxygen support , and wean the oxygen slowly. Lasix per pay clerk. Follow labs and replace as needed. SCD for DVT prophylaxis. Continue home medication. Glycemic control, Accu-Chek a.c. and at bedtime, sliding scale. Monitor. Consultants: cardiology Code status: full code Plan discussed with: patient, admitting physicia n, consultants, nurse Ava Abarca 08/25/21 1356: Attestations Physician Attestation Agree w/findings plan: Patient seen and examined, c linical data reviewed and I agree with the findings and plan as discussed with and documented by Edwin Patel NP Electronically Signed by Seamus Patel NP on at 1036 Electronically Signed by Ava Abarca MD on 0 08/25/21 at 1357 RPT #:[id number] END OF REPORT 2021-08-25 10:27:00-00:[address] [facility] ([facility]) Cardiology Progress Note REPORT#:[id number] REPORT STATUS: Signed DATE:08/25/21 TIME: 1027 PATIENT: OLIVIA MONROY UNIT #: [id number] ROOM/BED: 605-1 : 48 AGE: 70 SEX: M ATTEND: Mykel Ramos A ADM AUTHOR: Vinny Chou MD * ALL edits or amendments must be made on the [employer]/computer document * Subjective Chief complaint: SOB Free Text Subj Notes Free Text Subj Notes: Patient doing well, some tac hy on the telemetry, on orals. States not urinating much but RN is telling me he in fact is. Objective General VS/I O: Vital Signs: Date Time Temp Pulse Resp B/P B/P Pulse O2 O2 F low FiO2 Mean Ox Delivery Rate 08/25 925 102 26 145/67 96 93 08/25 09 93 High flow 8 nasal cannula 08/25 0900 98.1 101 26 145/67 93 93 High flow 8 nasal cannula 08/25 0900 120 20 167/83 114 90 08/25 0713 101 19 176/92 127 89 08/25 0531 147/87 110 08/25 0400 98.4 08/25 0400 105 21 136/84 106 87 08/25 0301 112 17 136/81 96 100 08/25 0201 108 20 144/89 107 100 08/25 0100 117 19 160/72 104 100 08/25 0000 98.2 08/24 2258 111 08/24 2258 28 146/92 111 88 08/24 2101 90 38 170/76 109 92 08/24 2016 4 08/24 2000 98.0 08/24 1945 75 40 177/81 117 89 08/24 1701 97.5 08/24 1600 97.8 91 22 129/68 88 95 High flow 6 nasal cannula 08/24 1208 97.9 08/24 1147 High flow 4 nasal cannula 08/24 1101 93 29 112/70 86 94 PATIENT WEIGHT: Weight (lb): Weight (oz): Weight (kg): 118.800 Medications: Active Meds + DC'd Last 24 Hrs Metoprolol Tartrate (LOPRESSOR) 100 MG BID PO (U NV) Metoprolol Tartrate (LOPRESSOR) 50 MG ONCE ONE P O (UNV) Metoprolol Tartrate (LOPRESSOR) 50 MG BID PO (DC r) Potassium Chloride (POTASSIUM CHLORIDE 20MEQ TAB .ER) 20 MEQ DAILY PO Metoprolol Tartrate (LOPRESSOR) 25 MG NOW ONE PO (DC) Torsemide (DEMADEX) 40 MG BID 9A 5P PO Magnesium Oxide (MAG-OX 400) 400 MG BID PO Rivaroxaban (XARELTO 20MG) 20 MG DAILY 1700 PO Acetaminophen (TYLENOL) 325 MG Q4H PRN PRN PO Potassium Chloride (POTASSIUM CHLORIDE 20MEQ TAB .ER) 40 MEQ ONCE ONE PO (CAN) Magnesium Sulfate (MAGNESIUM SULFATE 4GM/SWFI 10 0ML) 100 ML ONCE ONE IV (DC) Potassium Chloride (POTASSIUM CHLORIDE 20MEQ TAB .ER) 40 MEQ ONCE ONE PO (DC) Potassium Chloride (POTASSIUM CHLORIDE 20MEQ TAB .ER) 40 MEQ DAILY PRN PRN PO (DC) Atorvastatin Calcium (LIPITOR) 40 MG 2100 PO Mupirocin (BACTROBAN 2% 22 GM OINTMENT) 1 APPLIC BID NASAL Aripiprazole (ABILIFY) 30 MG DAILY PO Aspirin (ASPIRIN) 81 MG DAILY PO Bupropion HCl (WELLBUTRIN) 100 MG QAM PO Carvedilol (COREG) 25 MG DAILY PO (DC) Glipizide (GLUCOTROL) 10 MG DAILY PO Losartan Potassium (COZAAR) 100 MG DAILY PO Metformin HCl (GLUCOPHAGE) 1,000 MG BID PO Furosemide (LASIX 40 mg/4 mL INJECTION) 80 MG BI D 9A 5P IV (DC) Albuterol Sulfate (ALBUTEROL SULFATE) 1.25 MG RT Q4H PRN PRN NEB Physical Exam General appearance: alert, awake, no acute distr ess Head/Eyes: atraumatic, normal conjunctiva/sclera , normocephalic ENT: moist mucosal membranes, normal pharynx Neck: full range of motion, supple/no meningismu s Cardiovascular: CV assessment: ectopy Murmur assessment: 2/6 sm Respiratory: decreased breath sounds, on oxygen, no distress Abdomen: soft, non-tender, no distention Upper extremity: UE assessment: normal temperature, no clubbing, no cyanosis Lower extremity: LE assessment: edema, normal temperature, no cl ubbing, no cyanosis Musculoskeletal: full range of motion, normal in spection Neuro/STAFF SUBMARINE WARFARE OFFICER: alert, normal speech Skin: poor skin turgor, dry Results Findings/Data: Laboratory Tests 08/25 08/25 08/24 08/24 08/24 0736 0450 1946 1512 1123 Chemistry Sodium (134 - 147 mEq/L) 143 Potassium (3.4 - 5.0 mEq/L) 3.4 Chloride (100 - 108 mEq/L) 100 Carbon Dioxide (21 - 33 mEq/l) 38 H Anion Gap (0 - 20) 8 BUN (7 - 18 mg/dL) 16 Creatinine (0.6 - 1.3 mg/dL) 1.0 Glomerular Filtr Rate (70 - 80) 73.5 Glucose (70 - 110 mg/dL) 117 H POC Glucose (70 - 110 MG/DL) 126 H 116 H 99 Calcium (8.0 - 10.5 mg/dL) 9.4 Magnesium (1.80 - 2.40 mg/dL) 2.02 1.67 L 08/24 08/24 08/24 1123 1123 1113 Chemistry Sodium (134 - 147 mEq/L) 144 Potassium (3.4 - 5.0 mEq/L) 3.2 L Chloride (100 - 108 mEq/L) 99 L Carbon Dioxide (21 - 33) 32 > 40 H Anion Gap (0 - 20) 8 BUN (7 - 18 mg/dL) 19 H Creatinine (0.6 - 1.3 mg/dL) 1.0 Glomerular Filtr Rate (70 - 80) 73.5 Glucose (70 - 110 mg/dL) 130 H POC Glucose (70 - 110 MG/DL) 128 H Calcium (8.0 - 10.5 mg/dL) 9.9 Laboratory Tests 08/24 1123 Hematology WBC (4.5 - 11.0 x10 3/uL) 7.6 RBC (4.00 - 5.60 x10 6/uL) 3.27 L Hgb (12.5 - 16.9 g/dL) 8.0 L Hct (37.5 - 50.7 %) 27.5 L MCV (81.0 - 99.0 fL) 84.1 MCH (27.0 - 33.0 pg) 24.5 L MCHC (33.0 - 37.0 g/dL) 29.1 L RDW (11.5 - 14.5 %) 16.4 H Plt Count (150 - 400 x10 3/uL) 285 MPV (7.0 - 9.0 fL) 9.7 H Neut % (Auto) (56.0 - 77.0 %) 72.9 Lymph % (Auto) (14.0 - 32.0 %) 13.9 L Ashley % (Auto) (4.8 - 9.0 %) 9.0 Eos % (Auto) (0.3 - 3.7 %) 2.6 Baso % (Auto) (0.0 - 2.0 %) 1.2 Neut # (Auto) (2.0 - 7.6 x10 3/uL) 5.57 Lymph # (Auto) (1.0 - 3.8 x10 3/uL) 1.06 Ashley # (Auto) (0.1 - 0.8 x10 3/uL) 0.69 Eos # (Auto) (0.0 - 0.2 x10 3/uL) 0.20 Baso # (Auto) (0.0 - 0.2 x10 3/uL) 0.09 Abs Immat Gran (auto) (0.00 - 0.03 x10 3/uL) 0 .03 Add Manual Diff NO Immature Gran % (0.0 - 2.0 %) 0.4 Nucleated RBC % (0 - 0 %) 0.0 Nucleated RBCs # (Man) (0.0 - 0.1 x10 3/uL) 0.0 0 Laboratory Tests 08/25 08/24 0450 1123 Chemistry Magnesium (1.80 - 2.40 mg/dL) 2.02 1.67 L Results: labs reviewed, rhythm personally rev'd, current med profile rev'd Diagnosis, Assessment Plan Consultants: cardiology Free Text DxA P Notes Free Text DxA P Notes: 1. Acute congestive heart failure 2. Coronary atherosclerosis with prior CABG and prior PCI 3. Accelerated hypertension 4. Adult failure to thrive - prior prolonged hos pitalization 5. Diabetes mellitus 6. Normocytic anemia 7. Paroxysmal afib 8. 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 We will g et echo. Place on IV lasix to diurese and use BIPAP as well. Serial troponin i s negative. This does not represent ACS situation but rather likely an acute HF exacerbation. He will need to be put on higher maintena nce dose at discharge. For now, we know that he has prior 3vCABG per report as pancho jewell as prior remote PCI. is a big proponent for [facility] system for cardiac care and only want s cardiologists who have privileges there. For now, pancho wise will give him IV lasix and get the echo to see if any new systolic dysfunction has occurre d. Further recommendations after that. Monitor on telemetry, appears to be at s inus rhythm on admission. Need to have RN reconcile medications. Ne ed to see what the HGb trends, compared to last year is significantly reduced, but has recent chronic prolonged hospitalization, likely component anemia of chronic disease. 08/23/2021 Awaiting echocardiogram. He has been receiving I V Lasix 80 mg twice daily. He received a dose of 80 in the afternoon y and another one just now this morning. Prior to that I believe that he received about 60 mg in the emergency department yesterday. Per nursing report they at tempted to put a condom catheter however several sizes did not f it adequately. Also per nursing he has urinated in the bed several times. Thus it is mallory rd to know how well he is urinating. Obtain chest x-ray tomorrow. He repor ts that his breathing status is improved overall. Still on significant oxygen . They report no recent PCI. They also report that the patient was on Xarelto . As such we will see about starting that and discontinuing either the aspir in or the Plavix. As such, we will also need to monitor that hemoglobin. 08/24/2021 The patient has LVEF in the upper 40's, wall motion indicative and suggestive of prior CABG and prior scarrin g in certain areas. In either case, volume status is improving. He is now on Xare lto - no Hgb yet this AM. Also no labs yet this AM. He is on IV lasix, oxygen sats improving and wea branden down the oxygen. We will see if we can transition him to orals tomorrow. Plavix has been discontinued as well. Spoke with on the phone today to cristian barajas her [phone]. 08/25/2021 Some tachycardia on telemetry, oxygen requiremen ts improving, feeling better. Some hypertensive values. We will increase the beta mariaa dose. The xarelto is being tolerated. We will als o increase potassium and magnesium standing orders. On torsemide currently. Keisha tor overall - may require dose adjustment downwards after several days if he is still diuresing nice ly on this oral regimen. Electronically Signed by Vinny Chou MD on at 1031 RPT #:[id number] END OF REPORT 2021-08-24 14:45:00-00:00 [id number] [address] PATIENT NAME: OLIVIA MONROY ADMIT DATE: ACCOUNT NO: [id number] ROOM NO: G.524 AGE: 70 REPORT TYPE: DISCHARGE SUMMARY SEX: M ADMITTING PHYSICIAN:Benedicto Ramos MD ATTENDING PHYSICIAN:Benedicto Ramos MD ADMISSION DATE: 08/22/2021 DISCHARGE DATE: TENTATIVE DISCHARGE SUMMARY HOSPITAL COURSE: Olivia Monroy is a 70-year-ol d male who had a past medical history positive for chronic systolic congestive heart failure, history of paroxysmal atrial fibrillation, coronary artery bypass grafting, diabetes mellitus, and sleep apnea, came here as a transf er from [facility] Rehab due to congestive heart failure. He was started on IV L asix. The patient is doing better. Oxygen saturation is a lot better. Echoc ardiogram showed ejection fraction 45%. He is status post coronary artery bypass graft. The patient is going to be transitioned to oral diuretics. The patient has been seen by Dr. Chou for cardiology and Dr. Abarca for pulmona ry. The patient is going back to [facility] Rehab once accepted. PHYSICAL EXAMINATION: HEART: Showed regular rhythm. Normal S1, S2 soun ds. LUNGS: Clear bilaterally. ABDOMEN: Soft. EXTREMITIES: Showed no edema. VITAL SIGNS: Blood pressure 139/65, temp erature 36.6 degrees centigrade, heart rate 80 per minute, respiratory rate 18 per minute, and oxygen saturation 98%. LABORATORY DATA: The CBC; white blood co unt is 9.6, hemoglobin 8.0, hematocrit 27.5, and platelet count 295,000. On the BMP; so dium 144, potassium 3.2, chloride 99, CO2 of 40, BUN 19, creatini ne 1.0, and glucose 130. Magnesium low at 1.6. I am going to repeat potassi um and magnesium and recheck both of them tomorrow. PLAN OF TREATMENT: We are going to continue the course with the rest of the medication regimen. The patient will continue co urse of physical and occupational therapy. Also we are going to reche ck the magnesium and the potassium level tomorrow. The patient is going to resume home medication. Diet of course is going to be 1800 calorie ADA diet. Continue albuterol 1 unit via nebulizer q. 4 hours as need ed for shortness of breath, metformin 1000 mg twice a day, continue with carvedilol 25 mg da sy, losartan 100 mg daily, Abilify 30 mg daily, aspirin 81 mg daily, glipizide 10 mg d aily, Plavix 75 mg daily, and Lipitor 40 mg twice a day. He was taking Lasix 8 0 mg IV twice a day. We are going to discontinue the IV Lasix and the patien t has been transitioned to torsemide by Dr. Chou. Tentative discharge to [place] once he is accepted by [facility] Rehabilitation. PATIENT NAME: OLIVIA MONROY [id number] Dictated By: Benedicto Ramos MD WT: DS:EUSEBIO/TESFAYE/SARINA Conf#: [id number]/DID#: [id number] Authenticated by Benedicto Ramos MD On 09/01/19 01:33:03 PM at 0133 PATIENT NAME: OLIVIA MONROY [id number] 2021-08-24 08:44:00-00:[address] [facility] Cardiology Progress Note REPORT#:[id number] REPORT STATUS: Signed DATE:08/24/21 TIME: 08 PATIENT: OLIVIA MONROY UNIT #: [id number] ROOM/BED: [place] [id number] : 48 AGE: 70 SEX: M ATTEND: Mykel Ramos MD ADM AUTHOR: Vinny Chou MD * ALL edits or amendments must be made on the el [employer]/computer document * Subjective Chief complaint: SOB Free Text Subj Notes Free Text Subj Notes: Patient is doing okay. Denies chest pain. States breathing is getting better. Objective General VS/I O: 24 hour I O ending at 0700: 08/24 0700 08/23 1900 Intake Total 200 Output Total Balance 200 Intake, Oral 200 Number 2 Bowel Movements Number 2 Incontinent Voids Vital Signs: Date Time Temp Pulse Resp B/P B/P Pulse O2 O2 F low FiO2 Mean Ox Delivery Rate 08/24 0808 98.0 08/24 0020 98.1 08/23 2301 72 14 113/53 77 97 08/23 2102 High flow 13 nasal cannula 08/24 2011 High flow 15 nasal cannula 08/23 1912 79 19 102/55 73 89 08/23 1710 71 23 112/55 77 90 08/23 1700 97.9 71 23 112/55 74 90 High flow 13 nasal cannula 08/23 1600 93 20 119/57 82 82 08/23 1500 89 18 119/60 81 97 08/23 1401 92 15 128/64 82 93 08/23 1300 78 18 119/71 89 08/23 1300 97.9 78 18 119/71 87 100 High flow 1 5 nasal cannula 08/23 1230 97.9 76 15 127/62 0.0 100 08/23 1200 80 14 127/62 88 100 08/23 1101 80 121/71 88 97 08/23 0953 91 18 148/73 100 96 08/23 0900 98.1 87 25 145/68 93 95 High flow 1 5 nasal cannula 08/23 0900 87 25 94 PATIENT WEIGHT: Weight (lb): Weight (oz): Weight (kg): 118.800 Medications: Active Meds + DC'd Last 24 Hrs Torsemide (DEMADEX) 40 MG BID 9A 5P PO (UNV) Rivaroxaban (XARELTO 20MG) 20 MG DAILY 1700 PO Potassium Chloride (POTASSIUM CHLORIDE 20MEQ TAB .ER) 40 MEQ DAILY PRN PRN PO (UNV) Atorvastatin Calcium (LIPITOR) 40 MG 2100 PO Mupirocin (BACTROBAN 2% 22 GM OINTMENT) 1 APPLIC BID NASAL Aripiprazole (ABILIFY) 30 MG DAILY PO Aspirin (ASPIRIN) 81 MG DAILY PO Bupropion HCl (WELLBUTRIN) 100 MG QAM PO Carvedilol (COREG) 25 MG DAILY PO Clopidogrel Bisulfate (Plavix) 75 MG DAILY PO (D C) Glipizide (GLUCOTROL) 10 MG DAILY PO Losartan Potassium (COZAAR) 100 MG DAILY PO Metformin HCl (GLUCOPHAGE) 1,000 MG BID PO Furosemide (LASIX 40 mg/4 mL INJECTION) 80 MG BI D 9A 5P IV (CKDr) Albuterol Sulfate (ALBUTEROL SULFATE) 1.25 MG RT Q4H PRN PRN NEB Physical Exam General appearance: alert, awake, no acute distr ess Head/Eyes: atraumatic, normal conjunctiva/sclera , normocephalic ENT: moist mucosal membranes, normal pharynx Neck: full range of motion, supple/no meningismu s Cardiovascular: CV assessment: ectopy Murmur assessment: 2/6 sm Respiratory: decreased breath sounds, on oxygen, no distress Abdomen: soft, non-tender, no distention Upper extremity: UE assessment: normal temperature, no clubbing, no cyanosis Lower extremity: LE assessment: edema, normal temperature, no cl ubbing, no cyanosis Musculoskeletal: full range of motion, normal in spection Neuro/STAFF SUBMAR[employer] WARFARE OFFICER: alert, normal speech Skin: poor skin turgor, dry Results Findings/Data: Laboratory Tests 08/23 0912 Blood Gas Puncture Site R Radial O2 Saturation (90 - 100 %) 94.2 ABG pH (7.35 - 7.45) 7.373 ABG pCO2 (35.0 - 45 mmHg) 68.8 *H ABG pO2 (80 - 100.0 mmHg) 77.4 L ABG HCO3 (22.0 - 26.0 MMOL/L) 40.1 *H ABG Total CO2 42.2 ABG Base Excess (-4.0 - 4.0 MMOL/L) 14.9 H Raul Test Positive Laboratory Tests 08/24 08/23 08/23 08/23 0719 1956 1705 1232 Chemistry POC Glucose (70 - 110 MG/DL) 113 H 64 L 62 L 93 Results: labs reviewed, rhythm personally rev'd, current med profile rev'd Diagnosis, Assessment Plan Consultants: cardiology Free Text DxA P Notes Free Text DxA P Notes: 1. Acute congestive heart failure 2. Coronary atherosclerosis with prior CABG and prior PCI 3. Accelerated hypertension 4. Adult failure to thrive - prior prolonged hos pitalization 5. Diabetes mellitus 6. Normocytic anemia 7. Paroxysmal afib 8. 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 We will g et echo. Place on IV lasix to diurese and use BIPAP as well. Serial troponin i s negative. This does not represent ACS situation but rather likely an acute HF exacerbation. He will need to be put on higher maintena nce dose at discharge. For now, we know that he has prior 3vCABG per report as pancho jewell as prior remote PCI. is a big proponent for [facility] system for cardiac care and only want s cardiologists who have privileges there. For now, pancho wise will give him IV lasix and get the echo to see if any new systolic dysfunction has occurre d. Further recommendations after that. Monitor on telemetry, appears to be at s inus rhythm on admission. Need to have RN reconcile medications. Ne ed to see what the HGb trends, compared to last year is significantly reduced, but has recent chronic prolonged hospitalization, likely component anemia of chronic disease. 08/23/2021 Awaiting echocardiogram. He has been receiving I V Lasix 80 mg twice daily. He received a dose of 80 in the afternoon y and another one just now this morning. Prior to that I believe that he received about 60 mg in the emergency department yesterday. Per nursing report they at tempted to put a condom catheter however several sizes did not f it adequately. Also per nursing he has urinated in the bed several times. Thus it is mallory rd to know how well he is urinating. Obtain chest x-ray tomorrow. He repor ts that his breathing status is improved overall. Still on significant oxygen . They report no recent PCI. They also report that the patient was on Xarelto . As such we will see about starting that and discontinuing either the aspir in or the Plavix. As such, we will also need to monitor that hemoglobin. 08/24/2021 The patient has LVEF in the upper 40's, wall motion indicative and suggestive of prior CABG and prior scarrin g in certain areas. In either case, volume status is improving. He is now on Xare lto - no Hgb yet this AM. Also no labs yet this AM. He is on IV lasix, oxygen sats improving and wea branden down the oxygen. We will see if we can transition him to orals tomorrow. Plavix has been discontinued as well. Spoke with on the phone today to cristian barajas her . Electronically Signed by Vinny Chou MD on at 0847 [facility] #:[id number] END OF REPORT 2021-08-24 08:42:00-00:[address] [facility] Pulmonology Progress Note REPORT#:[id number] REPORT STATUS: Signed DATE:08/24/21 TIME: 0842 PATIENT: OLIVIA MONROY UNIT #: [id number] ROOM/BED: [place] [id number] : 48 AGE: 70 SEX: M ATTEND: Mykel Ramos A ADM AUTHOR: Seamus Patel REGULATORY COMPLIANCE DIRECTOR * ALL edits or amendments must be made on the [employer] document * Seamus Patel 08/24/21 0842: Subjective Chief complaint: He is still on High flow nasal cannula. Still c/o SOB with exertion. NO CP, fever, chills. NO N/v/D. BP and HR stable. Review of Systems ROS Constitutional: fatigue, generalized weakness. Skin: Denies: bruising, diaphoresis, ecchymosis, itchi ng. Eyes: Denies: discharge, visual loss/blurred, diplopia , eye pain. Respiratory: Reports: CHRISTENSEN (dyspnea on exertion), SOB. Cardiovascular: Denies: edema, orthopnea, palpitations. GI: Denies: abdominal pain, constipation, diarrhea, GERD, hiatal hernia. : Denies: dysuria, flank pain, hematuria, penile d ischarge, penile lesion, testicular pain. Musculoskeletal: Denies: extremity swelling, joint swelling, lumb ar pain, myalgias. Endocrine: Denies: polydipsia, polyphagia, polyuria. Neuro: Denies: bowel dysfunction, c hange in LOC, confusion, dizziness, focal weakness, gait problem, numbness. Objective General VS/I O: Last Documented: Result Date Time Temp 36.7 08/24 0808 Pulse Ox 97 08/23 2300 B/P 113/53 08/23 2300 B/P Mean 77 08/23 230 Pulse 72 08/23 2301 Resp 14 08/23 2300 O2 Delivery High flow nasal cannula 08/23 2101 O2 Flow Rate 13 08/23 2101 FiO2 50 08/23 0229 24 hour I O ending at 0700: 08/24 0700 08/23 1900 Intake Total 200 Output Total Balance 200 Intake, Oral 200 Number 2 Bowel Movements Number 2 Incontinent Voids PATIENT WEIGHT: Weight (lb): Weight (oz): Weight (kg): 118.800 Medications: Active Meds + DC'd Last 24 Hrs Torsemide (DEMADEX) 40 MG BID 9A 5P PO (UNV) Rivaroxaban (XARELTO 20MG) 20 MG DAILY 1700 PO Potassium Chloride (POTASSIUM CHLORIDE 20MEQ TAB .ER) 40 MEQ DAILY PRN PRN PO (UNV) Atorvastatin Calcium (LIPITOR) 40 MG 2100 PO Mupirocin (BACTROBAN 2% 22 GM OINTMENT) 1 APPLIC BID NASAL Aripiprazole (ABILIFY) 30 MG DAILY PO Aspirin (ASPIRIN) 81 MG DAILY PO Bupropion HCl (WELLBUTRIN) 100 MG QAM PO Carvedilol (COREG) 25 MG DAILY PO Clopidogrel Bisulfate (Plavix) 75 MG DAILY PO (D C) Glipizide (GLUCOTROL) 10 MG DAILY PO Losartan Potassium (COZAAR) 100 MG DAILY PO Metformin HCl (GLUCOPHAGE) 1,000 MG BID PO Furosemide (LASIX 40 mg/4 mL INJECTION) 80 MG BI D 9A 5P IV (CKDr) Albuterol Sulfate (ALBUTEROL SULFATE) 1.25 MG RT Q4H PRN PRN NEB Nutrition assessment: The data set between the solid lines has been im ported from the dietitian's assessment. Any exceptions have been noted under Provider comments. BMI Calculated: 32.7 Nutrition related diagnosis: Nutrition diagnosis details: Nutrition problem: Nutrition etiology: Nutrition signs and symptoms: Nutrition prescription: Dietitian name: Assessment completed: Provider comments on imported dietitian assessme nt: Physical Exam General appearance: frail, obese, respiratory rothman pport, alert, awake Head/eyes: atraumatic, PERRLA Cardiovascular: normal heart sounds, normal S1/S 2 Respiratory/chest: on oxygen, respiratory distre ss, tachypneic Abdomen: soft, non-tender, no CVA tenderness Genitourinary: no bladder distention, no flank p ain Extremities: no clubbing, no cyanosis, no edema Musculoskeletal: no muscle spasm Neuro/STAFF SUBMAR[employer] OFFICER: alert, oriented X 3 Results Findings/Data: Laboratory Tests 08/24 911 Blood Gas Puncture Site R Radial O2 Saturation (90 - 100 %) 94.2 ABG pH (7.35 - 7.45) 7.373 ABG pCO2 (35.0 - 45 mmHg) 68.8 *H ABG pO2 (80 - 100.0 mmHg) 77.4 L ABG HCO3 (22.0 - 26.0 MMOL/L) 40.1 *H ABG Total CO2 42.2 ABG Base Excess (-4.0 - 4.0 MMOL/L) 14.9 H Raul Test Positive Laboratory Tests 08/24 08/23 08/23 08/23 0719 1956 1705 1232 Chemistry POC Glucose (70 - 110 MG/DL) 113 H 64 L 62 L 93 Results: labs reviewed, vital signs reviewed, cu rrent med profile rev'd Treatment Prophylaxis Treatment Prophylaxis Oxygen: CPAP/BIPAP, nasal cannula Diagnosis, Assessment Plan Hospital course to date: ASSESSMENT: - Acute hypercapnic and hypoxic respiratory fail ure secondary to CHF exacerbation, tizrp-qu-smjvtuu diastolic dysfunc tion. - Acute congestive heart failure exacerbation, a eher-jv-oplsudp. - History of hypertension. - History of hyperlipidemia. - History of atrial fibrillation. - Diabetes type 2. - History of coronary artery disease status post coronary artery bypass graft and percutaneous coronary intervention. - Morbid obesity, body mass index 32.7. PLAN: IMCU. ECHO showed EF 45 to 50% and PAP 57.19 mmHg, mod erate TR and WV. Will continue to monitor res piratory status, breathing treatment, oxygen support , and wean the oxygen slowly. Lasix per pay clerk. Follow labs and replace as needed. SCD for DVT prophylaxis. Continue home medication. Glycemic control, Accu-Chek a.c. and at bedtime, sliding scale. Monitor. Consultants: cardiology Code status: full code Plan discussed with: patient, admitting physicia n, consultants, nurse Ava Abarca 08/25/21 1356: Attestations Physician Attestation Agree w/findings plan: Patient seen and examined, c linical data reviewed and I agree with the findings and plan as discussed with and documented by Edwin Patel NP Electronically Signed by Seamus Patel REGULATORY COMPLIANCE DIRECTOR on at 0847 Electronically Signed by Ava Abarca MD on 0 08/25/21 at 1356 RPT #:[id number] END OF REPORT 2021-08-23 16:46:00-00:00 [id number] [place] [address] PATIENT NAME: OLIVIA MONROY ADMIT DATE: 08/22 ACCOUNT NO: [id number] ROOM NO: 60 AGE: 70 REPORT TYPE: eECHOCARDIOGRAM REPORT SEX: M ADMITTING PHYSICIAN:Benedicto Ramos MD ATTENDING PHYSICIAN:Benedicto Ramos MD *[place] [address] Transthoracic Echocardiogram Patient: Olivia Monroy Study Date: 08/23/2021 BP: 146 / 64 Location: [facility] URN: [id number] : 1950 Age: 70 Height: 75 in / 190.5 cm Gender: M Weight: 259 .6 lb / 118 kg BMI/BSA: 32.5 kg/m 2 / 2.53 m 2 *Ordering Physician: * Vinny Chou MD *Interpreting Physician: * Vinny Chou MD *Bow Stapler: * Linda Bullard Indications: Atrial Fibrillation, heart failure, CABG. Study data: Transthoracic echocardiogram. Proced ure: Transthoracic echocardiography was performed. Image quality wa s adequate. Complete 2D, complete spectral Doppler, and color Doppler . Location: Bedside. Patient status: Inpatient. Patient room number: 605. Study status: Routine. Rhythm: Atrial fibrillation. Findings Left ventricle: The cavity size is normal. Wall thickness is moderately increased. Systolic function is mildly reduced. The estimated ejection fraction is 45-49%. Regional wall motion abnorma lities: Akinesis of the apical anterior, mid anteroseptal, and apica l septal myocardium; hypokinesis of the apical myocardium. The study is not technically sufficient to allow evaluation of LV diastolic f unction. PATIENT NAME: OLIVIA MONROY [id number] Right ventricle: The cavity size is mildly dilat ed. Systolic function is mildly to moderately reduced. Left atrium: The atrium is moderately dilated. Right atrium: The atrium is dilated. Aorta: The aorta is poorly visualized. Aortic valve: The valve is trileaflet. The leafl ets are moderately calcified. There is no evidence of stenosis. The re is no regurgitation. Mitral valve: The leaflets are mildly thickened. There is no evidence of stenosis. There is mild regurgitation. Tricuspid valve: Estimted right ventricle systol ic pressure is 57.19 mmHg. The valve is structurally normal. There is moderate regurgitation. Pulmonic valve: Not well visualized. There is mi ld to moderate regurgitation. Pericardium: There is no pericardial effusion. Systemic veins: Inferior vena cava: The vessel is dilated. Infer ior vena cava diameter is 2.2 cm. Measurements Left ventricle Value 08/12/2020 Ref MARCO, LAX 4.0 cm 5.0 4.2 - 5.8 ESD, LAX 2.8 cm 3.6 2.5 - 4.0 ESD/bsa, 1.1 cm/m 2 1.4 1.3 LAX - 2.1 FS, LAX 29 % 32 25 - 43 ESD/bsa 2.9 cm/m 2 2.8 ---- major ax, A4C MARCO/bsa 2.9 cm/m 2 2.8 ---- minor ax, A4C MARCO major 8.0 cm 9.1 ---- ax, A2C ESD major 7.7 cm 7.1 ---- ax, A2C MARCO/bsa 3.2 cm/m 2 3.7 ---- major ax, A2C ESD/bsa 3.1 cm/m 2 2.9 ---- major ax, A2C PW, ED 1.3 cm 1.3 0.6 - 1.0 PATIENT NAME: OLIVIA MONROY [id number] IVS/PW, ED 1.31 0.95 ---- EF 57 % 59 52 - 72 E', lat -11.4 cm/sec 12.0 >=10 joe, TDI .0 LVOT Value 08/12/2020 Ref Diam, S 2.07 cm 2.21 ---- Area 3.4 cm 2 3.8 ---- Peak francisco, -1.12 m/sec 1.34 ---- S Mean francisco, 0.76 m/sec 0.8 ---- S VTI, S 18.9 cm 22.9 ---- Peak grad, 5 mm Hg 7 ---- S Mean grad, 3 mm Hg 3 ---- S SV 63 ml 87 ---- Qs 5.21 L/min 7.1 ---- Qs/bsa 2.1 L/(min-m 2) 2.9 ---- SV/bsa 25 ml/m 2 35 ---- Ventricular septum Value 08/12/2020 Ref IVS, ED 1.7 cm 1.3 0.6 - 1.0 Right ventricle Value 08/12/2020 Ref MARCO, LAX 2.8 cm 2.0 ---- TAPSE, MM 1.3 cm 1.7 - 3.1 RVOT Value 08/12/2020 Ref Peak v, S 0.96 m/sec 0.77 ---- Peak grad, 4 mm Hg 2 ---- S Left atrium Value 08/12/2020 Ref AP dim, ES 4.17 cm 4.77 3.00 - 4.00 Vol/bsa, 32 ml/m 2 12 - ES, 1-p 37 A4C Vol, ES, 93 ml ---- 2-p Vol/bsa, 37 ml/m 2 16 - ES, 2-p 34 AP dim, ES 4.8 cm 4.4 3.0 MM - 4.0 LA/Ao root 1.45 1.22 ---- PATIENT NAME: OLIVIA MONROY [id number] ratio, MM Aortic valve Value 08/12/2020 Ref Leaflet 1.60 cm 1.99 ---- sep, MM Peak v, S 1.56 m/sec 1.56 ---- Mean v, S 1.1 m/sec 1.15 ---- VTI, S 18.0 cm 29.3 ---- Mean grad, 5.5 mm Hg 5.9 ---- S Peak grad, 10.0 mm Hg 9.7 ---- S LVOT/AV, 1.05 0.78 ---- VTI ratio LUCAS, VTI 2.74 cm 2 2.99 ---- LUCAS, Vmax 2.39 cm 2 3.29 ---- Mitral valve Value 08/12/2020 Ref Mean v, D 0.6 m/sec 0.59 ---- VTI 21.9 cm 17.1 ---- leaflet coapt PHT 55 ms 35 ---- Mean grad, 1.7 mm Hg 1.7 ---- D Peak grad, 4.1 mm Hg 4.1 ---- D MVA, PHT 4.0 cm 2 6.4 ---- MR peak v 4.34 m/sec ---- Pulmonic valve Value 08/12/2020 Ref WV peak v 1.38 m/sec ---- WV peak 8 mm Hg ---- grad WV v, ED 0.82 m/sec 0.81 ---- Tricuspid valve Value 08/12/2020 Ref TR peak v -3.43 m/sec <=2. 8 Peak RV-RA 47 mm Hg ---- grad, S Aortic root Value 08/12/2020 Ref Root diam, 3.28 cm 3.61 ---- ED MM Conclusions Summary: 1. Left ventricle: The cavity size is normal. Wa ll thickness is moderately increased. Systolic function is mild ly reduced. The estimated ejection fraction is 45-49%. The stud y is not technically PATIENT NAME: OLIVIA MONROY [id number] sufficient to allow evaluation of LV diastolic function. 2. Regional wall motion abnormality: Akinesis of the apical anterior, mid anteroseptal, and apical septal myocardium; hypokinesis of the apical myocardium. 3. Right ventricle: The cavity size is mildly di lated. Systolic function is mildly to moderately reduced. 4. Left atrium: The atrium is moderately dilated . 5. Right atrium: The atrium is dilated. 6. Aortic valve: The valve is trileaflet. The le aflets are moderately calcified. 7. Mitral valve: The leaflets are mildly thicken ed. There is mild regurgitation. 8. Tricuspid valve: Estimted right ventricle sys tolic pressure is 57.19 mmHg. There is moderate regurgitation. 9. Pulmonic valve: There is mild to moderate reg urgitation. 10. Pericardium, extracardiac: There is no peric ardial effusion. Prepared and electronically signed by Vinny Chou MD 08/23/2021 16:46 Electronically Signed by Vinny Chou MD on 0 08/23/21 at 1646 PATIENT NAME: OLIVAI MONROY [id number] 2021-08-23 15:18:00-00:00 [facility] REPORT#:[id number] REPORT STATUS: Signed DATE:08/23/21 TIME: 1518 PATIENT: OLIVIA MONROY UNIT #: [id number] ROOM/BED: [place] [address] : 48 AGE: 70 SEX: M ATTEND: Mykel Ramos MD ADM AUTHOR: Benedicto Ramos MD * ALL edits or amendments must be made on the [employer] document * Diagnosis, Assessment Plan Problem List/A P: 1. Acute exacerbation of CHF (congestive heart failure) 2. Acute respiratory failure with hypoxia 3. Pneumonia 4. Paroxysmal atrial fibrillation 5. History of coronary artery bypass graft x 3 6. CAD (coronary artery disease) 7. Diabetes mellitus type 2 in obese 8. NORRIS (obstructive sleep apnea) Orders: Continue IV lasix On ASA,Xarelto On Glucotrol,Metformin,ADA diet On Losartan,Metoprolol On Coreg On oxygen.albuterol PRN Procedure Date/time Status Wound Nurse Recommendations 08/23 1419 Active Positioning: Adult 08/23 1419 Active Press Injy All Stgs/High Risk 08/23 1419 Activ e Outpatient Wound Care Referral 08/23 1419 Activ e OXYGEN PER HOUR 08/23 1009 Complete POC ARTERIAL BLOOD GAS 08/23 0912 Complete CPAP/BIPAP ADULT/CHILD 08/23 0332 Complete OXYGEN PER HOUR 08/23 0038 Complete Consultants: cardiology Electronically Signed by Benedicto Ramos MD on 0 08/23/21 at 1524 [facility] #:[id number] END OF REPORT 2021-08-23 09:54:00-00:00 [facility] ([facility] Cardiology Progress Note REPORT#:[id number] REPORT STATUS: Signed DATE:08/23/21 TIME: 0954 PATIENT: OLIVIA MONROY UNIT #: [id number] ROOM/BED: [place] [address] : 48 AGE: 70 SEX: M ATTEND: Mykel Ramos MD ADM AUTHOR: Vinny Chou MD * ALL edits or amendments must be made on the [employer] document * Subjective Chief complaint: SOB Free Text Subj Notes Free Text Subj Notes: Patient reports that he feels okay. Per nursing there was attempts to place a condom catheter however several iterations did n ot fit. The patient has been urinating in the bed. He is not aware of how muc h urine he is making. Objective General VS/I O: 24 hour I O ending at 0700: 08/23 0700 08/22 1900 Intake Total 250.00 0 Output Total Balance 250.00 0 Intake, IV 100.00 Intake, Oral 150 Intake, Oral 0 Supplement Number 5 Incontinent Voids Vital Signs: Date Time Temp Pulse Resp B/P B/P Pulse O2 O2 F low FiO2 Mean Ox Delivery Rate 08/23 0744 98.1 75 16 145/68 0.0 100 08/23 0707 76 15 144/62 89 96 08/23 0400 97.9 85 17 146/64 91 93 High flow 15 nasal cannula 08/23 0400 85 17 93 08/23 0307 97.9 08/23 0300 91 16 87 08/23 0229 80 94 50 08/23 0208 80 20 146/65 93 91 08/23 0111 97.7 08/23 0100 110 140/62 89 92 08/23 0027 130/61 88 08/23 0000 97.7 83 29 130/61 84 94 High flow 15 nasal cannula 08/23 0000 83 29 94 08/22 2200 86 21 157/74 106 08/22 2102 85 17 139/72 96 100 04/19 2050 High flow 15 nasal cannula 08/23 1999 98.0 85 17 139/72 94 96 High flow 15 nasal cannula 08/22 1955 96 High flow 15 100 nasal cannula 08/22 1910 98.0 08/22 1900 96 154/67 97 96 08/22 1652 98.8 08/22 1600 98.8 81 13 143/67 92 100 High flow 1 5 nasal cannula 08/22 1600 81 13 143/67 96 100 08/22 1543 102 15 134/62 88 96 08/22 1405 83 20 147/87 112 100 08/22 1400 High flow 15 nasal cannula 08/22 1400 99.3 83 20 147/87 107 100 High flow 15 nasal cannula 08/22 1200 99 Non 15 rebreather mask 08/22 1000 74 24 100 PATIENT WEIGHT: Weight (lb): Weight (oz): Weight (kg): 118.800 Medications: Active Meds + DC'd Last 24 Hrs Atorvastatin Calcium (LIPITOR) 40 MG 2100 PO Aripiprazole (ABILIFY) 30 MG DAILY PO Aspirin (ASPIRIN) 81 MG DAILY PO Bupropion HCl (WELLBUTRIN) 100 MG QAM PO Carvedilol (COREG) 25 MG DAILY PO Clopidogrel Bisulfate (Plavix) 75 MG DAILY PO Glipizide (GLUCOTROL) 10 MG DAILY PO Losartan Potassium (COZAAR) 100 MG DAILY PO Metformin HCl (GLUCOPHAGE) 1,000 MG BID PO Magnesium Sulfate (MAGNESIUM SULFATE 2GM/SWFI 50 ML) 50 ML ONCE ONE IV ( DC) Furosemide (LASIX 40 mg/4 mL INJECTION) 80 MG BI D 9A 5P IV (CKD) Albuterol Sulfate (ALBUTEROL SULFATE) 1.25 MG RT Q4H PRN PRN NEB Insulin Human Lispro (HUMALOG) 0 AC HS SUBQ (DC) Acetaminophen (TYLENOL) 650 MG Q4H PRN PRN PO (D C) Dextrose/Water (DEXTROSE 50% W SYRINGE) 25 ML DIR PRN IV (DC) Dextrose/Water (DEXTROSE 50% W SYRINGE) 50 ML DIR PRN IV (DC) Glucagon (GLUCAGON) 1 MG ASDIR PRN IM (DC) Hydralazine HCl (APRESOLINE) 10 MG Q2H PRN PRN I V (DC) Ondansetron HCl (ZOFRAN) 4 MG Q6H PRN PRN IV (DC ) Sodium Chloride (SODIUM CHLORIDE) 0 ASDIR PRN IV (DC) Physical Exam General appearance: alert, awake, no acute distr ess Head/Eyes: atraumatic, normal conjunctiva/sclera , normocephalic ENT: moist mucosal membranes, normal pharynx Neck: full range of motion, supple/no meningismu s Cardiovascular: CV assessment: ectopy Murmur assessment: 2/6 sm Respiratory: decreased breath sounds, on oxygen, no distress Abdomen: soft, non-tender, no distention Upper extremity: UE assessment: normal temperature, no clubbing, no cyanosis Lower extremity: LE assessment: edema, normal temperature, no cl ubbing, no cyanosis Musculoskeletal: full range of motion, normal in spection Neuro/STAFF SUBMARINE WARFARE OFFICER: alert, normal speech Skin: poor skin turgor, dry Results Findings/Data: Laboratory Tests 08/24 911 Blood Gas Puncture Site R Radial O2 Saturation (90 - 100 %) 94.2 ABG pH (7.35 - 7.45) 7.373 ABG pCO2 (35.0 - 45 mmHg) 68.8 *H ABG pO2 (80 - 100.0 mmHg) 77.4 L ABG HCO3 (22.0 - 26.0 MMOL/L) 40.1 *H ABG Total CO2 42.2 ABG Base Excess (-4.0 - 4.0 MMOL/L) 14.9 H Raul Test Positive Laboratory Tests 08/23 08/23 08/22 08/22 08/22 0737 0450 1935 1615 1403 Chemistry Sodium (134 - 147 mEq/L) 144 Potassium (3.4 - 5.0 mEq/L) 3.7 Chloride (100 - 108 mEq/L) 105 Carbon Dioxide (21 - 33 mEq/l) 34 H Anion Gap (0 - 20) 9 BUN (7 - 18 mg/dL) 12 Creatinine (0.6 - 1.3 mg/dL) 0.8 Glomerular Filtr Rate (70 - 80) 95.0 H Glucose (70 - 110 mg/dL) 78 POC Glucose (70 - 110 MG/DL) 87 141 H 111 H 84 Calcium (8.0 - 10.5 mg/dL) 9.6 08/22 08/22 08/22 08/22 1003 0956 0956 0956 Chemistry Hemoglobin A1c (4.8 - 6.0 %A1C) 5.5 Magnesium (1.80 - 2.40 mg/dL) 1.92 Troponin I High Sens (0 - 54 ng/L) 21 Triglycerides (40 - 150 mg/dL) 53 Cholesterol (<200 mg/dL) 84 LDL Cholesterol Measurd (0 - 100 mg/dL) 51.9 HDL Cholesterol (32 - 72 mg/dL) 26.4 L Cholesterol/HDL Ratio (3.43 - 4.97 RATIO) 3.18 L TSH (0.42 - 5.47 IU/mL) 1.03 Laboratory Tests 08/22 1003 Chemistry Magnesium (1.80 - 2.40 mg/dL) 1.92 Results: labs reviewed, rhythm personally rev'd, current med profile rev'd Diagnosis, Assessment Plan Free Text DxA P Notes Free Text DxA P Notes: 1. Acute congestive heart failure 2. Coronary atherosclerosis with prior CABG and prior PCI 3. Accelerated hypertension 4. Adult failure to thrive - prior prolonged hos pitalization 5. Diabetes mellitus 6. Normocytic anemia 7. Paroxysmal afib 8. 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 We will g et echo. Place on IV lasix to diurese and use BIPAP as well. Serial troponin i s negative. This does not represent ACS situation but rather likely an acute HF exacerbation. He will need to be put on higher maintena nce dose at discharge. For now, we know that he has prior 3vCABG per report as pancho jewell as prior remote PCI. is a [facility] and only want s cardiologists who have privileges there. For now, pancho wise will give him IV lasix and get the echo to see if any new systolic dysfunction has occurre d. Further recommendations after that. Monitor on telemetry, appears to be at s inus rhythm on admission. Need to have RN reconcile medications. Ne ed to see what the HGb trends, compared to last year is significantly reduced, but has recent chronic prolonged hospitalization, likely component anemia of chronic disease. 08/23/2021 Awaiting echocardiogram. He has been receiving I V Lasix 80 mg twice daily. He received a dose of 80 in the afternoon y and another one just now this morning. Prior to that I believe that he received about 60 mg in the emergency department yesterday. Per nursing report they at tempted to put a condom catheter however several sizes did not f it adequately. Also per nursing he has urinated in the bed several times. Thus it is mallory rd to know how well he is urinating. Obtain chest x-ray tomorrow. He repor ts that his breathing status is improved overall. Still on significant oxygen . They report no recent PCI. They also report that the patient was on Xarelto . As such we will see about starting that and discontinuing either the aspir in or the Plavix. As such, we will also need to monitor that hemoglobin. Electronically Signed by Vinny Chou MD on at 1002 RPT #:[id number] END OF REPORT 2021-08-23 08:46:00-00:00 [facility] ([facility]) Clinical Note REPORT#:[id number] REPORT STATUS: Signed DATE:08/23/21 TIME: 08 PATIENT: OLIVIA MONROY UNIT #: [id number] ROOM/BED: [place] [address] : 48 AGE: 70 SEX: M ATTEND: Mykel Ramos A MD ADM AUTHOR: Seamus Patel NP * ALL edits or amendments must be made on the [employer]/computer document * Seamus Patel 08/23/21 0846: Clinical Note Note: Pulmonary consult # [id number] Ava Abarca 08/23/21 1649: Clinical Note Note: Patient seen and examined, c linical data reviewed and I agree with the findings and plan as discussed with and documented by Edwin Patel NP Electronically Signed by Seamus Patel NP on at 0846 Electronically Signed by Ava Abarca MD on 0 08/23/21 at 1650 RPT #:[id number] END OF REPORT 2021-08-23 08:45:00-00:00 [id number] [address] PATIENT NAME: OLIVIA MONROY ADMIT DATE: ACCOUNT NO: [id number] ROOM NO: G.605 AGE: 70 REPORT TYPE: CONSULTATION REPORT SEX: M ADMITTING PHYSICIAN:Benedicto Ramos MD ATTENDING PHYSICIAN:Benedicto Ramos MD CONSULTATION DATE: CONSULTING PHYSICIAN: Ava Abarca MD PULMONARY CONSULTATION CHIEF COMPLAINT: Shortness of breath, respirator y failure, hypoxia. REQUESTING PHYSICIAN: Benedicto Ramos MD HISTORY OF PRESENT ILLNESS: This is a 70-year-ol d male with a past medical history of CAD status post CABG, PCI, heart fail ure, diastolic dysfunction, AFib, hypertension, diabetes , hyperlipidemia, debility, morbid obesity, came to the hospital initially with severe shortness of breath, respiratory distress, and wheezing. The patient had initial workup and found to have CHF exacerbation. His further workup revealed hypoxi a. We were consulted for the management of the hypoxia. Currently, the patien t is on 15 liters high-flow nasal cannula. He still has shortness of breath with exertion and hypoxic. He denies any nausea, vomiting, diarrhea, or consti pation. ALLERGIES: NO KNOWN ALLERGIES. PAST MEDICAL HISTORY: Hypert ension, hyperlipidemia, diabetes type 2, CAD status post CABG, PCI, congestive heart failure, AFib, morbid obesity with a BMI of 32.7. 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 FAMILY HISTORY: Noncontributory to illness. SOCIAL HISTORY: Former smoker. Denies use of alc ohol or use of illicit drug. MEDICATIONS: Per MAR, reviewed and reconciled. REVIEW OF SYSTEMS: All 14-point systems reviewed . Pertinent positives and negatives are listed in HPI as above, otherwise negative. PHYSICAL EXAMINATION: GENERAL: The patient is awake, following command . VITAL SIGNS: Blood pressure is 145/68, pulse is 75, temperature is 36.7, oxygen saturation 100% on 15 L, and respiratory rate is 22. HEENT: Normocephalic and atraumatic. NECK: Supple. PATIENT NAME: OLIVIA MONROY [id number] CARDIOVASCULAR: Regular rhythm. S1 and S2 presen t. RESPIRATORY: The patient is on 15 liters high-flow nasal cannula, diminished on the bases, shortness of breath with exertion. GASTROINTESTINAL: Abdomen is round, soft, and no ntender. GENITOURINARY: No signs of hematuria. MUSCULOSKELETAL: No signs of clubbing or cyanosi s. ENDOCRINE: Stable. PSYCHIATRIC: Stable. LABORATORY AND DIAGNOSTIC DATA: WBC 9.2, RBC 3.4 2, hemoglobin is 8.3, hematocrit is 31.2, and platelet is 270. Hand Alterations Seamstress ry: Sodium is 134, potassium 3.7, chloride of 105, carbon dioxide 34, anion gap is 9, BUN is 12, creatinine 0.8, glucose is 78, calcium is 9.6, magnesium is 1.92. Troponin I is 21, BNP 346. Triglyceride 53, LDL is 51.9. Blood gas pen ding. IMAGING STUDIES: Chest x-ray shows CHF. ASSESSMENT: 1. Acute hypoxic respiratory failure secondary t o congestive heart failure exacerbation, [id number] diastolic dysfunc tion. 2. Acute congestive heart failure exacerbation, [id number]. 3. History of hypertension. 4. History of hyperlipidemia. 5. History of atrial fibrillation. 6. Diabetes type 2. 7. History of coronary artery disease st atus post coronary artery bypass graft and percutaneous coronary intervention. 8. Morbid obesity, body mass index 32.7. PLAN: 1. Admit to the IMCU. 2. Continue to monitor respi ratory status, breathing treatment, oxygen support, and wean the oxygen slowly. 3. ABG. 4. Lasix per pay clerk. 5. Follow labs and replace as needed. 6. SCD for DVT prophylaxis. 7. Continue home medication. 8. Glycemic control, Accu-Chek a.c. and at bedti me, sliding scale. 9. Monitor. After assessment, we discussed the plan with the patient. Dictated By: Seamus Patel NP for Ava Abarca MD WT: CON:EUSEBIO/DANIELA/NTS Conf#: [id number]/DID#: [id number] Authenticated by Ava Abarca MD On 08/23 04:51:35 PM Authenticated by Seamus Patel On 08/24/2021 01: 33:23 PM PATIENT NAME: OLIVIA MONROY [id number] at 0451 Electronically Signed by Seamus Patel NP on at 0133 PATIENT NAME: OLIVIA MONROY [id number] 2021-08-22 14:47:00-00:00 [id number] [place] [address] PATIENT NAME: OLIVIA MONROY ADMIT DATE: ACCOUNT NO: [id number] ROOM NO: G.524 AGE: 70 REPORT TYPE: HISTORY AND PHYSICAL SEX: M ADMITTING PHYSICIAN:Benedicto Ramos MD ATTENDING PHYSICIAN:Benedicto Ramos MD ADMISSION DATE: 08/22/2021 HISTORY OF PRESENT ILLNESS: A 70-year-old male w ith past medical history positive for coronary artery disease, status post CABG; history of sleep apnea; history of congestive heart failure; paroxysmal atrial fibrillation; hypertension; diabetes; hyperlipidemia; prior infection with COVID, apparently has been having CHF symptoms last year. He has b een on anticoagulant. Came in and was admitted. He was originally at [facility] and the patient started getting more short of breath, hy poxemic, and he was transferred to the Emergency Room due to conges tive heart failure with volume overload and hypoxia. The patient was started on IV diuretics. He is feeling better. REVIEW OF SYSTEMS: CARDIOVASCULAR: No chest pain or palpitation. RESPIRATORY: He denies shortness of breath. No c ough. GASTROINTESTINAL: No nausea, no vomiting, no wolf rrhea. ALLERGIES: NOT ALLERGIC TO ANYTHING. PAST MEDICAL HISTORY: Coronary artery disease, s tatus post CABG; CHF; paroxysmal atrial fibrillati on; obstructive sleep apnea; diabetes mellitus type 2. SOCIAL HISTORY: He claims that he does not smoke , he does not drink. PHYSICAL EXAMINATION: VITAL SIGNS: Blood pressure 129/57, temp erature 36.7 degrees centigrade, heart rate 74 per minute, respirat ory rate 24 per minute, and oxygen saturation 100%. HEART: Showed irregularly irregular heart rate. LUNGS: Clear bilaterally. ABDOMEN: Soft. EXTREMITIES: Show 1+ bilateral pedal edema. LABORATORY AND DIAGNOSTIC DATA: We have glucose of 84. Hemoglobin A1c 5.5. Troponin I, high sensitivity, is normal. Triglycerides 53, cholesterol 84, LDL cholesterol 51.9. TSH 1.03. On the CBC; white blood count 9.2, hemoglobin 8.3, hematocrit 31.2 and platelet count is 270,000. O n the BMP; sodium 144, potassium 4.4, chloride 108, CO2 of 29, BUN 17, creatinine 1.1, glucose is 108, calcium 9.4. Troponin I, high sensitivity, 20 wh ich is normal. B-natriuretic peptide 346, which is high. On the chest x-ray, we have contextual findings most likely representing pulmonary edema, heart failure ____ has similar imaging appearance. PATIENT NAME: OLIVIA MONROY [id number] FINAL IMPRESSION: 1. Pulmonary edema. 2. Bilateral pneumonia 3. Obstructive sleep apnea. 4. Chronic atrial fibrillation. 5. Acute hypoxic respiratory failure. 6. Uncontrolled diabetes mellitus type 2. PLAN OF TREATMENT: We are going to marnie nue with furosemide 80 mg twice a day. Continue to monitor blood sugar a.c. and at bed time. Continue hydralazine 10 mg IV q. 12 hours as needed for hypertension, Zofran 4 mg IV q.6 hours as needed for nausea and vomiting, Tylenol 650 mg q.6 hour s as needed. We are going to continue Plavix 75 mg daily. Continue Li pitor 40 mg daily. Continue carvedilol 25 mg daily. Continue Cozaar 100 mg daily. Marnie nue Abilify 30 mg daily. Continue aspirin 81 mg daily. Continue bupropion 100 mg in the morning. Continue gabapentin 200 mg 3 times. Continue gli pizide 10 mg daily and Glucophage 1000 mg twice a day. We have consulte d Dr. Chou for Cardiology. We are going to consult Dr. Bernal for Pulmonary. Time spent around 45 minutes reviewing the plan of care, reviewing lab work and x-rays. Dictated By: Benedicto Ramos MD WT: HP:EUSEBIO/TESFAYE/SARINA Conf#: [id number]/DID#: [id number] Authenticated by Benedicto Ramos MD On 09/01/19 01:33:01 PM at 0133 PATIENT NAME: OLIVIA MONROY [id number] 2021-08-22 14:43:00-00:00 [facility] ([facility]) History Physical - Adult REPORT#:[id number] REPORT STATUS: Signed DATE:08/22/21 TIME: 1443 PATIENT: OLIVIA MONROY UNIT #: [id number] ROOM/BED: [place] [address] : 48 AGE: 70 SEX: M ATTEND: Mykel Ramos MD ADM AUTHOR: Benedicto Ramos MD * ALL edits or amendments must be made on the [employer] document * History of Present Illness Free Text HPI Notes Free Text HPI Notes: H and P dictated today # [id number] History Past medical history: Reports: Depression/mood disorder, Diabetes emile itus, Hypertension, Dyslipidemia. 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 Alcohol use: Denies EtOH use Drug use: Denies recreational drugs Smoking status: Smoking status for patients 13 years old or old er: Former Smoker Medication/Allergy-Vaccine Hx Allergies: Coded Allergies: No Known Allergies (08/12/20) Electronically Signed by Benedicto Ramos MD on 0 08/22/21 at 1448 RPT #:[id number] END OF REPORT 2021-08-22 12:19:00-00:00 [facility] ([facility]) Cardiology Consultation REPORT#:[id number] REPORT STATUS: Signed DATE:08/22/21 TIME: 1219 PATIENT: OLIVIA MONROY UNIT #: [id number] ROOM/BED: [place] [address] : 48 AGE: 70 SEX: M ATTEND: Mykel Ramos MD ADM AUTHOR: Vinny Chou MD * ALL edits or amendments must be made on the [employer]/computer document * History of Present Illness HPI Requesting Clinician: Dr. Ramos Reason for consult: CHF Chief complaint: SOB PCP: PCP: No Primary or Family Physician HPI: This is a 70 year old male with past med ical history of CAD s/p prior CABG and PCI, heart failure, paroxysm al afib, HTN, DMII, HLP, prior infection, debility. Spoke to , Krystal Monroy for a lot of history as the patient was intermittently on BIPAP and not very verbal in terms of his overal lhistory. [facility] cardiac [facility] at [facility], potentially 3 v CABG, prior history of PCI remote. No recent cat h. He has been having CHF symptoms for the past year , there has been issues with volume status as we ll at times when he has been over diuresed per . Also with history of atr ial fibrillation on oral anticoagulant. Last time he was in the h ospital, she claims that they took too much fluid off and she reports that he was dehyd rated. Card Assembler was Dr. Mendoza. No recent heart cat h. She prefers [facility] and wants to see a pay clerk there. He also is a [facility] type patie nt. She states that he spend time [facility] for 6 weeks - sev eral infections. Brucella? Bartonella? Fungal infection , staph?. Feeding tube, ETT at that time. Usually on 60 mg PO lasix daily per . On aspirin. Previ ously on Xarelto but they had switched to Eliquis. Carvedi lol 25 mg BID. Metformin 1000 mg BID. Amiodarone 100 mg PO daily. She states that she feels that diuresis may not have been enough on the orals. In the ED he had volume on CXR and hypoxia, given IV lasix and placed on BIPAP. History - Adult longitudinal Past medical history: Reports: Depression/mood disorder, Diabetes emile itus, Hypertension, Dyslipidemia. 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 Alcohol use: Denies EtOH use Drug use: Denies recreational drugs Smoking status: Smoking status for patients 13 years old or old er: Former Smoker Home medications: Home Medications: metFORMIN (GLUCOPHAGE) 1,000 MG PO BID CARVEDILOL (COREG) 25 MG PO DAILY LOSARTAN (COZAAR) 100 MG PO DAILY CLOPIDOGREL (PLAVIX) 75 MG PO DAILY ATORVASTATIN (LIPITOR) 40 MG PO DAILY ASPIRIN EC (ECOTRIN) 81 MG PO DAILY buPROPion (WELLBUTRIN) 100 MG PO QAM ARIPiprazole (ABILIFY) 30 MG PO DAILY GABAPENTIN (NEURONTIN) 1,200 MG PO TID glipiZIDE (GLUCOTROL) 10 MG PO DAILY Allergies: Coded Allergies: No Known Allergies (08/12/20) Review of Systems Constitutional: fatigue. Denies: chills. Skin: abrasion, bruising. Allergy/Immun: Denies: allergic reaction, anaphylaxis. Eyes: Denies: redness, discharge. ENT: Denies: ear drainage, ear ringing. Respiratory: Reports: CHRISTENSEN (dyspnea on exertion). Denies: hemo ptysis. Cardiovascular: Reports: dyspnea on exertion, edema. Denies: ana st pain. GI: Denies: abdominal pain, anorexia. : Denies: dysuria, flank pain. Musculoskeletal: arthritis, extremity swelling. Heme: bleeding. Denies: adenopathy. Endocrine: Denies: cold intolerance, heat intolerance. Neuro: Denies: slurred speech, unable to speak. Psych: Denies: agitation, anxiety. Objective General VS/I O: Vital Signs: Date Time Temp Pulse Resp B/P B/P Pulse O2 O2 F low FiO2 Mean Ox Delivery Rate 08/22 1000 74 24 100 08/22 0900 74 23 129/57 85 100 08/22 0830 74 27 160/67 97 98 08/22 0800 73 20 158/70 100 99 08/22 0715 72 24 156/77 111 99 08/22 0643 71 15 169/70 100 100 08/22 0557 74 100 50 08/22 0557 99 BiPAP 50 08/22 0550 BiPAP 50 08/22 0550 98.0 70 18 161/91 114 99 BiPAP 50 24 hour I O ending at 0700: 08/22 0700 08/21 1900 Intake Total Output Total Balance Patient 118.8 kg Weight Weight Bed scale Measurement Method PATIENT WEIGHT: Weight (lb): Weight (oz): Weight (kg): 118.800 Medications: Active Meds + DC'd Last 24 Hrs Insulin Human Lispro (HUMALOG) 0 AC HS SUBQ Acetaminophen (TYLENOL) 650 MG Q4H PRN PRN PO Dextrose/Water (DEXTROSE 50% W SYRINGE) 25 ML DIR PRN IV (CKD) Dextrose/Water (DEXTROSE 50% W SYRINGE) 50 ML DIR PRN IV (CKD) Glucagon (GLUCAGON) 1 MG ASDIR PRN IM Hydralazine HCl (APRESOLINE) 10 MG Q2H PRN PRN I V Ondansetron HCl (ZOFRAN) 4 MG Q6H PRN PRN IV Furosemide (LASIX 40 mg/4 mL INJECTION) 60 MG X1 ED STA IV (DC) Sodium Chloride (SODIUM CHLORIDE) 0 ASDIR PRN IV Physical Exam General appearance: respiratory support, alert, awake Head/Eyes: atraumatic, normal conjunctiva/sclera , normocephalic ENT: moist mucosal membranes, normal pharynx Neck: full range of motion, non-tender Cardiovascular: CV assessment: regular rate and rhythm Respiratory: decreased breath sounds, shortness of breath Abdomen: soft, non-tender, no distention Upper extremity: UE assessment: normal temperature, no clubbing, no cyanosis Lower extremity: LE assessment: edema Musculoskeletal: full range of motion, normal in spection Neuro/STAFF 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 WARFARE OFFICER: alert, normal speech Skin: poor skin turgor, dry Results Findings/Data: Laboratory Tests 08/22 08/22 08/22 08/22 08/22 0956 0956 0956 0607 0607 Chemistry Sodium (134 - 147 mEq/L) 144 Potassium (3.4 - 5.0 mEq/L) 4.4 Chloride (100 - 108 mEq/L) 108 Carbon Dioxide (21 - 33 mEq/l) 29 Anion Gap (0 - 20) 11 BUN (7 - 18 mg/dL) 17 Creatinine (0.6 - 1.3 mg/dL) 1.1 Glomerular Filtr Rate (70 - 80) 65.8 L Glucose (70 - 110 mg/dL) 108 Hemoglobin A1c (4.8 - 6.0 %A1C) 5.5 Calcium (8.0 - 10.5 mg/dL) 9.4 Troponin I High Sens (0 - 54 ng/L) 21 20 B-Natriuretic Peptide (0 - 100 PG/ML) 346.0 H Triglycerides (40 - 150 mg/dL) 53 Cholesterol (<200 mg/dL) 84 LDL Cholesterol Measurd (0 - 100 mg/dL) 51.9 HDL Cholesterol (32 - 72 mg/dL) 26.4 L Cholesterol/HDL Ratio (3.43 - 4.97 3.18 L RATIO) TSH (0.42 - 5.47 IU/mL) 1.03 Laboratory Tests 08/22 0607 Hematology WBC (4.5 - 11.0 x10 3/uL) 9.2 RBC (4.00 - 5.60 x10 6/uL) 3.42 L Hgb (12.5 - 16.9 g/dL) 8.3 L Hct (37.5 - 50.7 %) 31.2 L MCV (81.0 - 99.0 fL) 91.2 MCH (27.0 - 33.0 pg) 24.3 L MCHC (33.0 - 37.0 g/dL) 26.6 L RDW (11.5 - 14.5 %) 17.0 H Plt Count (150 - 400 x10 3/uL) 270 MPV (7.0 - 9.0 fL) 10.2 H Neut % (Auto) (56.0 - 77.0 %) 71.4 Lymph % (Auto) (14.0 - 32.0 %) 13.6 L Ashley % (Auto) (4.8 - 9.0 %) 10.9 H Eos % (Auto) (0.3 - 3.7 %) 2.9 Baso % (Auto) (0.0 - 2.0 %) 0.8 Neut # (Auto) (2.0 - 7.6 x10 3/uL) 6.53 Lymph # (Auto) (1.0 - 3.8 x10 3/uL) 1.25 Ashley # (Auto) (0.1 - 0.8 x10 3/uL) 1.00 H Eos # (Auto) (0.0 - 0.2 x10 3/uL) 0.27 H Baso # (Auto) (0.0 - 0.2 x10 3/uL) 0.07 Abs Immat Gran (auto) (0.00 - 0.03 x10 3/uL) 0. 04 H Add Manual Diff NO Immature Gran % (0.0 - 2.0 %) 0.4 Nucleated RBC % (0 - 0 %) 0.0 Nucleated RBCs # (Man) (0.0 - 0.1 x10 3/uL) 0. 00 Laboratory Tests 08/22 0607 Chemistry B-Natriuretic Peptide (0 - 100 PG/ML) 346.0 H Radiology Data: Recent Impressions: RADIOLOGY - XR CHEST 1 V 08/22 0621 Report Impression - Status: SIGNED Entered: 08/22/2021 0629 IMPRESSION: Constellation of findings most likely represent pulmonary edema and heart failure in the absence of fever or cough. Pneumonia can however have a similar imaging appearance. Impression By: Duran - Zion Álvarez M.D. Results: labs reviewed, x-ray personally reviewe d, current med profile rev'd Diagnosis, Assessment Plan Free Text DxA P Notes Free Text DxA P Notes: 1. Acute congestive heart failure 2. Coronary atherosclerosis with prior CABG and prior PCI 3. Accelerated hypertension 4. Adult failure to thrive - prior prolonged hos pitalization 5. Diabetes mellitus 6. Normocytic anemia 7. Paroxysmal afib 8. 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 We will g et echo. Place on IV lasix to diurese and use BIPAP as well. Serial troponin i s negative. This does not represent ACS situation but rather likely an acute HF exacerbation. He will need to be put on higher maintena nce dose at discharge. For now, we know that he has prior 3vCABG per report as w best as prior remote PCI. is a big proponent for [facility] system for cardiac care and only want s cardiologists who have privileges there. For now, w e will give him IV lasix and get the echo to see if any new systolic dysfunction has occurre d. Further recommendations after that. Monitor on telemetry, appears to be at s inus rhythm on admission. Need to have RN reconcile medications. Ne ed to see what the HGb trends, compared to last year is significantly reduced, but has recent chronic prolonged hospitalization, likely component anemia of chronic disease. Electronically Signed by Vinny Chou MD on at 1301 RPT #:[id number] END OF REPORT 2021-08-22 05:56:00-00:00 [facility] ([facility]ERG[facility] REPORT REPORT#:[id number] REPORT STATUS: Signed DATE:08/22/21 TIME: 555 PATIENT: OLIVIA MONROY UNIT #: [id number] ROOM/BED: [place] [address] AGE: 70 SEX: M PCP PHYS: No Primary or Family Ph ysician SERVICE AUTHOR: Jj Dyson DO * ALL edits or amendments must be made on the [employer] document * Jj Dyson 08/22/21 0556: HPI-Dyspnea/Wheezing Free Text HPI Notes Free Text HPI Notes 70M with past medical history as below b rought in by EMS due to patient having shortness of breath and [facility]. EMS states that fpc found patient disconnected from his BiPAP which he uses nightl y since being diagnosed with COVID 6 months ago. Patient was saturating 70% a s per staff. EMS states on arrival the had patient saturating 100% on BiPAP . They removed BiPAP from patient and patient desaturated to 84% o n room air. No meds given by EMS prior to arrival. Patient denies chest pain, palpitati ons. Denies fevers chills or night sweats. Denies abdominal pain, nausea, or vomiting. Denies headache, dizziness, or blurry vision. Denies LOC or synco pe. General Initial Greet Date/Time 08/22/21 0556 Presentation Chief Complaint Shortness of breath )( Sudden in Onset? Yes Review of Systems ROS Statements All systems rev neg except as marked. Past Medical History - Adult Stated Complaint SOB Allergies Coded Allergies: No Known Allergies (08/12/20) Re-Evaluation MDM Free Text MDM Notes Additional Text Review of Vital Signs Reviewed Focused PE General/Const General/Const obese, awake, Alert, No acute dis tress, Well appearing, Well developed, Well hydrated, Well nourished, Norberto ative, Not toxic appearing Eyes Eyes EOMI MS Neck Neck Full range of motion Resp/Chest Respiratory/Chest Breath sounds NL, Breath soun ds = bilat, No respiratory distress, No rales, No rhonchi, No wheezing, No retractions Cardiovascular Cardiovascular Heart rate NL, Regular rhythm, H eart sounds NL Abdomen/GI Abdomen/GI Soft, Non-tender, No distention MS Back Back Full range of motion, Painless range of mo tion MS Lower Extrem Lower Ext/Pelvis/MS No edema Skin Skin Color NL, No rash, Warm, Dry, Intact Neurologic Neurologic Oriented X3, Speech NL, No motor def icits, CN II - XII intact Psychiatric Psychiatric Affect NL, Mood NL Additional PE MS Head Head Atraumatic, Normocephalic Ears/Nose/Throat Ears/Nose/Throat Airway patent MS Upper Extrem Upper Extremity/MS Full range of motion, No def ormity ED Course Medication(s) Ordered Medication(s) Ordered: Cardiovascular Drugs Sig/Azalia Start time Last Medication Dose Route Stop Time Status Admin Hydralazine HCl 10 MG Q2H PRN PRN 08/22 0800 AC IV 08/23 0655 Central Nervous System Agents Sig/Azalia Start time Last Medication Dose Route Stop Time Status Admin Acetaminophen 650 MG Q4H PRN PRN 08/22 0800 AC PO 08/23 0655 Electrolytic, Caloric, And Sarah Sig/Azalia Start time Last Medication Dose Route Stop Time Status Admin Dextrose/Water 25 ML ASDIR PRN 08/22 0800 CKD IV 08/23 0655 Dextrose/Water 50 ML ASDIR PRN 08/22 0800 CKD IV 08/23 0655 Furosemide 60 MG X1ED STA 08/22 0631 DC 08/22 IV 08/22 0632 0642 Sodium Chloride 0 ASDIR PRN 08/22 0600 AC IV 08/23 0456 Gastrointestinal Drugs Sig/Azalia Start time Last Medication Dose Route Stop Time Status Admin Ondansetron HCl 4 MG Q6H PRN PRN 08/22 0800 AC IV 08/23 0655 Hormones And Synthetic Substit Sig/Azalia Start time Last Medication Dose Route Stop Time Status Admin Insulin Human Lispro 0 AC HS 08/22 1130 AC SUBQ 08/23 0655 Glucagon 1 MG ASDIR PRN 08/22 0800 AC IM 08/23 0655 Wayne Lorenz 08/22/21 0631: HPI-Dyspnea/Wheezing General Confirmed Patient Yes LIBERTY Marie Presentation Hx Obtained From Prior medical records Risk-Dyspnea/Wheezing Risk Stratification Coronary Artery Disease Risk factors reviewed Past Medical History - Adult Home Medications Reported Medications metFORMIN (GLUCOPHAGE) 1,000 MG PO BID CARVEDILOL (COREG) 25 MG PO DAILY LOSARTAN (COZAAR) 100 MG PO DAILY CLOPIDOGREL (PLAVIX) 75 MG PO DAILY ATORVASTATIN (LIPITOR) 40 MG PO DAILY ASPIRIN EC (ECOTRIN) 81 MG PO DAILY buPROPion (WELLBUTRIN) 100 MG PO QAM ARIPiprazole (ABILIFY) 30 MG PO DAILY GABAPENTIN (NEURONTIN) 1,200 MG PO TID glipiZIDE (GLUCOTROL) 10 MG PO DAILY Past Medical History: Reports: Depression/mood disorder, Diabetes emile itus, Hypertension, Dyslipidemia. Physical Exam Vital Signs Vital Signs First Documented: Result Date Time Pulse Ox 99 08/22 0550 B/P 161/91 08/22 0550 B/P Mean 114 08/22 0550 FiO2 50 08/22 0550 O2 Delivery BiPAP 08/22 0550 Temp 36.7 08/22 0550 Pulse 70 08/22 0550 Resp 18 08/22 0550 Last Documented: Result Date Time Pulse Ox 99 08/22 0716 FiO2 50 08/22 0716 Pulse 72 08/22 0716 B/P 156/77 08/22 0715 B/P Mean 111 08/22 0715 Resp 24 08/22 0715 O2 Delivery BiPAP 08/22 0557 Temp 36.7 08/22 0550 Review of Vital Signs Reviewed Focused PE General/Const General/Const Awake, Not toxic appearing Appearance/Presentation Obese, morbidly. Ears/Nose/Throat Ears/Nose/Throat Airway patent, Mucous membrane s moist, No facial swelling MS Neck Neck No adenopathy, No swelling, No tracheal de viation Resp/Chest Respiratory/Chest Breath sounds NL, Breath soun ds = bilat Text/Dict Notes Patient on CPAP Cardiovascular Cardiovascular Heart rate NL, Regular r hythm, Heart sounds NL, Cap refill not delayed Abdomen/GI Abdomen/GI Soft, Non-tender, No guarding, No di stention MS Lower Extrem Lower Ext/Pelvis/MS Non-tender Skin Skin Color NL, Warm, Dry Neurologic Neurologic Oriented X3, Speech NL Interpretation Diagnostics Lab Results Interpretation Considerations Reviewed prior records Results Laboratory Tests 08/22/21 0607: [Embedded Image Not Available] Laboratory Tests: 08/22 08/22 08/22 0607 0607 0557 Blood Gas ABG pH (7.35 - 7.45) TNP ABG pCO2 (35 - 45 mmHg) TNP ABG pO2 (80 - 100 mmHg) TNP ABG HCO3 (22.0 - 26.0 mmol/L) TNP Chemistry Sodium (134 - 147 mEq/L) 144 Potassium (3.4 - 5.0 mEq/L) 4.4 Chloride (100 - 108 mEq/L) 108 Carbon Dioxide (21 - 33 mEq/l) 29 Anion Gap (0 - 20) 11 BUN (7 - 18 mg/dL) 17 Creatinine (0.6 - 1.3 mg/dL) 1.1 Glomerular Filtr Rate (70 - 80) 65.8 L Glucose (70 - 110 mg/dL) 108 Calcium (8.0 - 10.5 mg/dL) 9.4 Troponin I High Sens (0 - 54 ng/L) 20 B-Natriuretic Peptide (0 - 100 PG/ML) 346.0 H Hematology WBC (4.5 - 11.0 x10 3/uL) 9.2 RBC (4.00 - 5.60 x10 6/uL) 3.42 L Hgb (12.5 - 16.9 g/dL) 8.3 L Hct (37.5 - 50.7 %) 31.2 L MCV (81.0 - 99.0 fL) 91.2 MCH (27.0 - 33.0 pg) 24.3 L MCHC (33.0 - 37.0 g/dL) 26.6 L RDW (11.5 - 14.5 %) 17.0 H Plt Count (150 - 400 x10 3/uL) 270 MPV (7.0 - 9.0 fL) 10.2 H Neut % (Auto) (56.0 - 77.0 %) 71.4 Lymph % (Auto) (14.0 - 32.0 %) 13.6 L Ashley % (Auto) (4.8 - 9.0 %) 10.9 H Eos % (Auto) (0.3 - 3.7 %) 2.9 Baso % (Auto) (0.0 - 2.0 %) 0.8 Neut # (Auto) (2.0 - 7.6 x10 3/uL) 6.53 Lymph # (Auto) (1.0 - 3.8 x10 3/uL) 1.25 Ashley # (Auto) (0.1 - 0.8 x10 3/uL) 1.00 H Eos # (Auto) (0.0 - 0.2 x10 3/uL) 0.27 H Baso # (Auto) (0.0 - 0.2 x10 3/uL) 0.07 Abs Immat Gran (auto) (0.00 - 0.03 x10 3/uL) 0. 04 H Add Manual Diff NO Immature Gran % (0.0 - 2.0 %) 0.4 Nucleated RBC % (0 - 0 %) 0.0 Nucleated RBCs # (Man) (0.0 - 0.1 x10 3/uL) 0.0 0 Recent Impressions: RADIOLOGY - XR CHEST 1 V 08/22 620 Report Impression - Status: SIGNED Entered: 08/22/2021628 IMPRESSION: Constellation of findings most likely represent pulmonary edema and heart failure in the absence of fever or cough. Pneumonia can however have a similar imaging appearance. Impression By: Duran - Zion Álvarez M.D. Point of Care Testing Pulse Oximetry Pulse Ox % 99 On: CPAP Interpretation Interpreted by me, Pulse oximetr y normal (supplemented to normal) ECG #1 Interpretation Date 08/22/21 Time 0557 Interpreted by and reviewed by NL ECG Interpretation Normal rate, Normal sinus rhythm, No STEMI Rate 71 Conduction/[place] LBBB - complete, Poor R wave pro gression, Left axis deviation Re-Evaluation MDM )( Re-Evaluation/Progress #1 Time of Re-Eval 0735 )( Re-Eval Status Improved Exam Post Tx - General Alert, Vital signs stable Plan Post Re-Eval Plan admit Patient Discharge Departure Vital Signs/Condition Vital Signs First Documented: Result Date Time Pulse Ox 99 08/22 0550 B/P 161/91 08/22 0550 B/P Mean 114 08/22 0550 FiO2 50 08/22 0550 O2 Delivery BiPAP 08/22 0550 Temp 36.7 08/22 0550 Pulse 70 08/22 0550 Resp 18 08/22 0550 Last Documented: Result Date Time Pulse Ox 99 08/22 0716 FiO2 50 08/22 0716 Pulse 72 08/22 0716 B/P 156/77 08/22 0715 B/P Mean 111 08/22 0715 Resp 24 08/22 0715 O2 Delivery BiPAP 08/22 0557 Temp 36.7 08/22 0550 All vital signs available at the time of this en try have been reviewed. Condition Improved Clinical Impression Clinical Impression Primary Impression: CHF (congestive heart failur e) Secondary Impressions: Anemia, Hypoxia Disposition Decision Admit Admit Physician Name Benedicto Ramos MD Admit Physician Hospitalist )( Admission Accepts Yes )( Accepted Time 0757 )( Accepted Date 08/22/21 Discharge/Care Plan Counseled Regarding Need for admission Electronically Signed by Wayne Lorenz MD on 08/22 at 0800 Electronically Signed by Jj Dyson DO on 08/24 at 0912 RPT #:[id number] END OF REPORT 2020-08-13 09:38:00-00:00 [id number] [address] PATIENT NAME: OLIVIA MONROY ADMIT DATE: ACCOUNT NO: [id number] ROOM NO: [facility] AGE: 69 REPORT TYPE: PROGRESS NOTE SEX: M ADMITTING PHYSICIAN:Sera Casanova MD ATTENDING PHYSICIAN:Sera Casanova MD DATE: 08/13/2020 ELECTROPHYSIOLOGY FOLLOWUP SUBJECTIVE: The patient is feeling chelo r this morning. He continues in atrial fibrillation with a controll ed ventricular response now. He is requesting to be discharged home. OBJECTIVE: VITAL SIGNS: Temperature 98.2, blood pressure 10 2/68, pulse 74, respiratory rate 18, O2 saturations 95%. ENMT: Atraumatic, normocephalic. RESPIRATORY: Normal effort. LUNGS: Clear to auscultation bilaterally. CARDIOVASCULAR: Irregularly irregular S1 and S2. No S3 or S4. EXTREMITIES: No edema. NEUROLOGIC: Cranial nerves II through XII are in tact. No focal motor deficits noted. DIAGNOSTIC DATA: Electrocardiogram shows atrial fibrillation with a controlled ventricular response. LABORATORY DATA: White blood cell count 11.6, he moglobin 13.2, and platelets 239. Sodium 141, potassium 3.3, chloride 101, CO 2 of 33, BUN 32, creatinine 1.2, glucose 125, calcium 9.8. Troponin I 0.075, 0.089. INR 1.2. IMPRESSION: 1. Persistent atrial fibrillation. Heart rate co ntrolled now. The patient is asymptomatic. 2. Coronary artery disease, status post aortocor onary bypass. 3. Hypertension. 4. Hyperlipidemia. RECOMMENDATIONS: 1. We will discontinue digoxin and load with ami odarone. 2. Anticoagulate with Xarelto. 3. I discussed monitoring the patient over the ken and consider cardioversion on Saturday if he remains in atrial fibrillation. The patient has requested he be discharged home. I advised him w e could follow up his atrial fibrillation as an outpatient and bring him back for elective cardioversion if necessary. He voiced understanding of th e above. Continue amiodarone, Xarelto, Plavix, atorvastatin, carvedilol. PATIENT NAME: OLIVIA MONROY [id number] 4. The patient was advised to follow up with Dr. Mendoza upon discharge. Dictated By: Kavin Armas MD WT: PN:JJ/MARISELA/NTS Conf#: [id number]/DID#: [id number] Authenticated by Kavin Armas MD On 08/15/19 06:50:42 AM at 0808 PATIENT NAME: OLIVIA MONROY [id number] 2020-08-13 07:02:00-00:00 [id number] [address] PATIENT NAME: OLIVIA MONROY ADMIT DATE: ACCOUNT NO: [id number] ROOM NO: [id number] AGE: 69 REPORT TYPE: ELECTROCARDIOGRAM SEX: M ADMITTING PHYSICIAN:Sera Casanova MD ATTENDING PHYSICIAN:Sera Casanova MD Order: [id number] Test Reason : CAD Test Date/Time Stamp: SatAug 13 2020 07:02:33 Blood Pressure : / mmHG Vent. Rate : 067 BPM Atrial Rate : 096 BPM P-R Int : 000 ms QRS Dur : 130 ms QT Int : 470 ms P-R-T Axes : 000 -71 254 degree s QTc Int : 496 ms Atrial fibrillation Left axis deviation Left ventricular hypertrophy with QRS widening Cannot rule out Anterior infarct , age undetermi sabine T wave abnormality, consider inferolateral ische robert or digitalis effect Abnormal ECG No significant change was found Confirmed by GAIL MENDOZA ([id number]) on 08/13/2020 7:07:57 AM Referred By: Sera Casanova Confirmed by:GAIL JAVED at 0708 PATIENT NAME: OLIVIA MONROY [id number] 2020-08-13 06:24:00-00:00 [facility] ([facility]) Cardiology Progress Note REPORT#:[id number] REPORT STATUS: Signed DATE:08/13/20 TIME: 623 PATIENT: OLIVIA MONROY UNIT #: [id number] ROOM/BED: [address] : [address] AGE: 69 SEX: M ATTEND: Sera Casanova MD ADM AUTHOR: Gail Mendoza MD * ALL edits or amendments must be made on the [employer] document * Subjective Chief Complaint: CHF, New AFIB Patient reports: Yes: shortness of breath. No: chest pain, palpit ations, swelling. Nursing reports: No: complaints. Objective General VS/I O: 24 hour I O ending at 0700: 08/13 0700 08/12 1900 Intake Total 1450 Output Total 3200 Balance -1750 Intake, Oral 1450 Number 1 Bowel Movements Number Voids 8 Output, Urine 3200 Vital Signs: Date Time Temp Pulse Resp B/P B/P Pulse O2 O2 F low FiO2 Mean Ox Delivery Rate 08/13 0456 97.9 65 18 140/78 98.3 95 Room air 08/12 2309 97.5 70 18 126/71 89.4 94 Room air 08/12 1850 97.9 80 18 125/72 90.0 96 Room air 08/12 1543 97.3 69 20 133/71 91.7 95 08/12 1134 97.9 82 20 120/77 91.4 96 Room air 08/12 0757 99.0 89 20 125/78 93.6 92 Room air PATIENT WEIGHT: Weight (lb): 265 Weight (oz): 10.51 Weight (kg): 120.500 Medications: Active Meds + DC'd Last 24 Hrs Digoxin 0.25 MG Q6H IV (CKD) Amiodarone HCl 400 MG BID PO (UNV) Rivaroxaban 20 MG DAILY PO (UNV) Apixaban 5 MG BID PO (CAN) Aripiprazole 30 MG DAILY PO Aspirin 81 MG DAILY PO Atorvastatin Calcium 40 MG DAILY PO Bupropion HCl 100 MG QAM PO Clopidogrel Bisulfate 75 MG DAILY PO Enoxaparin Sodium 120 MG 0600,1800 SUBQ (DC) Insulin Human Lispro LOW DOSE SLIDING SCALE AC HS SUBQ Digoxin 0.5 MG NOW ONE IV (DC) Metoprolol Tartrate 5 MG Q6H PRN PRN IV Gabapentin 1,200 MG TID PO Carvedilol 25 MG DAILY PO Albuterol/Ipratropium 3 ML RTQ4H PRN PRN INH Nitroglycerin 0.4 MG Q5M PRN PRN SL Dextrose/Water 12.5 GM ASDIR PRN IV Dextrose/Water 25 GM ASDIR PRN IV Furosemide 40 MG BID@0900,1700 IV Acetaminophen 650 MG Q4H PRN PRN PO Docusate Sodium 100 MG BID PRN PRN PO Guaifenesin 200 MG Q4H PRN PRN PO Hydralazine HCl 10 MG Q4H PRN PRN IV Ondansetron HCl 4 MG Q8H PRN PRN IV Nutrition assessment: The data set between the solid lines has been im ported from the dietitian's assessment. Any exceptions have been noted under Provider comments. BMI Calculated: 36.0 Nutrition related diagnosis: Obese Nutrition diagnosis details: BMI 30-39.9 Nutrition problem: Overweight/obesity Nutrition etiology: Excessive oral intake, Decre ased physical activity Nutrition signs and symptoms: BMI 36 Nutrition prescription: -RECOMMEND MARNIE NUE CARDIAC DIET W/ 2GM NA RESTRICTION AND 1800 ADA MODIFIER JENNYFER ERATED -NO NEED FOR ONS AT THIS TIME -RD TO F/U PER PROTOCOL Dietitian name: TOD Narayanan Assessment completed: 08/12/20 Provider comments on imported dietitian assessme nt: Physical Exam General appearance: alert, awake, oriented, no a cute distress, pleasant, conversational, mental status normal, no respira tory distress Head/Eyes: atraumatic, normocephalic, PERRLA ENT: moist mucosal membranes Neck: full range of motion, supple/no meningismus, no bruit/NL carotids, no JVD Cardiovascular: CV assessment: irregularly irregular, BP pulses = bilaterally Murmur assessment: I/ ROBERTO LLSB Respiratory: decreased breath sounds, clear to a uscultation, no distress Abdomen: soft, non-tender, no mass/organomegaly, no pulsatile mass Lower extremity: LE assessment: no edema, 2+ peripheral pulses ( 1+ distal pulses) Musculoskeletal: full range of motion Neuro/STAFF [employer] OFFICER: alert, oriented X 3, CN II-XII intact , no motor deficits Psychiatry: normal affect, normal judgment/insig ht, normal mood, no hallucinations Results Findings/Data: Laboratory Tests 08/13 08/12 08/12 08/12 08/12 0455 1849 1542 1133 0802 Chemistry POC Glucose (60 - 99 MG/DL) 123 H 221 H 126 H 1 61 H Mean Blood Glucose (70 - 110 MG/DL) 126 H Hemoglobin A1c (4.8 - 5.9 %) 6.0 H 08/12 08/12 08/12 0802 0802 0736 Chemistry Sodium (137 - 145 MMOL/L) 141 Potassium (3.5 - 5.1 MMOL/L) 3.8 Chloride (98 - 107 MMOL/L) 102 Carbon Dioxide (22 - 30 MMOL/L) 31 H BUN (9 - 20 MG/DL) 31 H Creatinine (0.66 - 1.25 MG/DL) 1.10 Glomerular Filtr Rate > 60 Glucose (74 - 106 MG/DL) 165 H POC Glucose (60 - 99 MG/DL) 178 H Calcium (8.4 - 10.2 MG/DL) 10.3 H Total Bilirubin (0.2 - 1.3 MG/DL) 0.6 AST (17 - 59 UNITS/L) 23 ALT (<50 UNITS/L) 15 Total Alk Phosphatase (38 - 126 UNITS/L) 87 Troponin I (0.012 - 0.033 NG/ML) 0.089 H Total Protein (6.2 - 7.6 G/DL) 7.6 Albumin (3.5 - 5.0 G/DL) 4.1 Free T4 (0.78 - 2.19 NG/DL) 1.5 Laboratory Tests 08/12 0802 Hematology WBC (3.8 - 9.8 K/MM3) 9.9 H RBC (3.95 - 5.67 M/MM3) 4.53 Hgb (12.4 - 16.7 G/DL) 12.7 Hct (35.9 - 49.5 %) 40.3 MCV (81.7 - 96.1 fL) 89 MCH (27.6 - 33.2 pg) 28.0 MCHC (32.9 - 35.5 %) 31.5 L RDW (12.1 - 15.2 %) 13.9 Plt Count (129 - 368 K/MM3) 226 MPV (7.4 - 10.4 fl) 10.8 H Neut % (Auto) (43 - 75 %) 82.3 H Lymph % (Auto) (14 - 44 %) 10.8 L Ashley % (Auto) (4 - 13 %) 5.7 Eos % (Auto) (0 - 6 %) 0.0 Baso % (Auto) (0 - 2 %) 0.2 Neut # (Auto) (2.0 - 7.6 K/mm3) 8.12 H Lymph # (Auto) (1.0 - 3.8 K/mm3) 1.06 Ashley # (Auto) (0.1 - 0.8 K/mm3) 0.56 Eos # (Auto) (0.0 - 0.2 K/mm3) 0.00 Baso # (Auto) (0.0 - 0.2 K/mm3) 0.02 Immature Gran % (0.0 - 2.0 %) 1.0 Nucleated RBC % (0 - 1.0 %) 0.0 Nucleated RBCs # (Man) (0.0 - 0.1 K/mm3) 0.00 Laboratory Tests 08/12 0802 Chemistry Troponin I (0.012 - 0.033 NG/ML) 0.089 H Results: labs reviewed, vital signs stable, echo personally reviewed, EKG personally reviewed, rhythm personally rev'd, x-ray personally reviewed, current med profile rev'd EKG Interpretation: atrial fibrillation Telemetry Interpretation: AFIB Echo results: Stable, NL EF Diagnosis, Assessment Plan Problem List/A P: 1. CAD (coronary artery disease) 2. Afib 3. Acute exacerbation of CHF (congestive heart failure) 4. Shortness of breath 5. HTN (hypertension) 6. Diabetes mellitus type 2 in obese 7. VIANNEY (acute kidney injury) 8. Elevated troponin 9. Elevated brain natriuretic peptide (BNP) lev el 10. History of coronary artery bypass graft x 3 Orders: Procedure Date/time Status EKG 08/14 0500 Active EKG 08/13 0619 Active PROTHROMBIN TIME 08/13 0500 Active PTT ACTIVATED 08/13 0500 Active Verify signed consent on chart 08/12 1749 Activ e Clip Prep 08/12 175 Active COVID-19 Testing 08/12 174 Active Coronavirus AG Non PUI Rapid 08/12 1740 Active CANCEL CATH Consultants: hospitalist Code status: full code Plan discussed with: patient , spouse/partner, admitting physician, patient care team, nurse Free Text DxA P Notes Free Text DxA P Notes: IMPRESSION: NEW AFIB and secondary CHF Trop leak due to CHF/AFIB, Doubt ACS or sig OR Acute D CHF CAD CAB X 3 2018 Hx of stents before HTN HLP Hx of mild MR DM PLAN: Meds Rx for AFIB for now May need cardioversion Amiodarone/Xarelto/Dig Off Plavix/Lovenox CHF Sxs resolved No CATH for now, will follow as outpatient Rest per orders Possible discharge in 1-2 days Discussed in detail Electronically Signed by Gail Mendoza MD on 0 08/13/20 at 0637 [facility] #:[id number] END OF REPORT 2020-08-12 14:26:00-00:00 [id number] [address] PATIENT NAME: OLIVIA MONROY ADMIT DATE: ACCOUNT NO: [id number] ROOM NO: [facility] AGE: 69 REPORT TYPE: ELECTROCARDIOGRAM SEX: M ADMITTING PHYSICIAN:Sera Casanova MD ATTENDING PHYSICIAN:Sera Casanova MD Order: [id number] Test Reason : CAD Test Date/Time Stamp: SatAug 12 2020 14:26:42 Blood Pressure : / mmHG Vent. Rate : 084 BPM Atrial Rate : 110 BPM P-R Int : 000 ms QRS Dur : 132 ms QT Int : 462 ms P-R-T Axes : 000 -74 269 degree s QTc Int : 545 ms Atrial fibrillation with a competing junctional pacemaker Left axis deviation Left ventricular hypertrophy with QRS widening T wave abnormality, consider inferior ischemia o r digitalis effect T wave abnormality, consider anterolateral ische robert or digitalis effect Abnormal ECG No previous ECGs available Confirmed by GAIL MENDOZA ([id number]) on 08/12/2020 3 :09:12 PM Referred By: Self Referred Confirmed by:GAIL PEOPLES at 1509 PATIENT NAME: OLIVIA MONROY [id number] 2020-08-12 14:21:00-00:00 [facility] ([facility] Hospitalist Progress Note REPORT#:[id number] REPORT STATUS: Signed DATE:08/12/20 TIME: 1420 PATIENT: OLIVIA MONROY UNIT #: [id number] ROOM/BED: [address] : [address] AGE: 69 SEX: M ATTEND: Sera Casanova MD ADM AUTHOR: Zion Garcia MD R1 * ALL edits or amendments must be made on the [employer] document * Zion Garcia 08/12/20 1421: Subjective HPI: Seen and examined. Mr. Martha jeter reports that his SOB is greatly improved. He has been up to go to the bathroom frequently which h e attributes to the Lasix but reports no CHRISTENSEN. Denies cp, palpitations, extremi ty pain or swelling, cough, orthopnea, orthostatic Sx, lightheadedness, dizz iness, f/ch. Review of Systems Respiratory: Denies: CHRISTENSEN (dyspnea on exertion), hemoptysis, n on productive cough, parox nocturnal dyspnea, pleurisy, pleuritic pain, pneumonia, productive cough (sputum ), SOB, wheezing. Cardiovascular: Denies: chest pain, CHRISTENSEN (dyspnea on exer tion), edema, orthopnea, palpitations, parox nocturnal dyspnea. : Reports: frequency. All systems rev neg: except as marked Objective General VS/I O: Vital Signs: Date Time Temp Pulse Resp B/P B/P Pulse O2 O2 F low FiO2 Mean Ox Delivery Rate 08/12 1134 97.9 82 20 120/77 91.4 96 Room air 08/12 0757 99.0 89 20 125/78 93.6 92 Room air 08/12 0237 98.8 113 24 130/75 93.1 97 08/11 2358 98.6 102 24 147/79 101.7 96 24 hour I O ending at 0700: 08/12 0700 08/11 1900 Intake Total Output Total Balance Patient 266 lb Weight Weight Bed scale Measurement Method PATIENT WEIGHT: Weight (lb): 265 Weight (oz): 10.51 Weight (kg): 120.500 Medications: Active Meds + DC'd Last 24 Hrs Digoxin 0.25 MG Q6H IV (CKD) Apixaban 5 MG BID PO (CAN) Aripiprazole 30 MG DAILY PO Aspirin 81 MG DAILY PO Atorvastatin Calcium 40 MG DAILY PO Bupropion HCl 100 MG QAM PO Clopidogrel Bisulfate 75 MG DAILY PO Enoxaparin Sodium 120 MG 0600,1800 SUBQ Losartan Potassium 100 MG DAILY PO (CAN) Insulin Human Lispro LOW DOSE SLIDING SCALE AC HS SUBQ Digoxin 0.5 MG NOW ONE IV (DC) Metoprolol Tartrate 5 MG Q6H PRN PRN IV Gabapentin 1,200 MG TID PO Carvedilol 25 MG DAILY PO Albuterol/Ipratropium 3 ML RTQ4H PRN PRN INH Nitroglycerin 0.4 MG Q5M PRN PRN SL Dextrose/Water 12.5 GM ASDIR PRN IV Dextrose/Water 25 GM ASDIR PRN IV Furosemide 40 MG BID@0900,1700 IV Acetaminophen 650 MG Q4H PRN PRN PO Docusate Sodium 100 MG BID PRN PRN PO Guaifenesin 200 MG Q4H PRN PRN PO Hydralazine HCl 10 MG Q4H PRN PRN IV Ondansetron HCl 4 MG Q8H PRN PRN IV Physical Exam Head/Eyes: atraumatic, EOMI, normocephalic, PERR L ENT: moist mucosal membranes, normal dentition Neck: full range of motion, non-tender, no JVD Cardiovascular: irregularly irregular, tachycard ic, no murmur Respiratory: aerating well, clear to auscultatio n, symmetric expansion Abdomen: obese, non-tender, normal bowel sounds, soft, no distention Genitourinary: no flank pain, no armendariz Extremities: edema, moves all, trace edema to th e bilateral lower extremities noted Musculoskeletal: normal inspection, no CVA tende rness, no muscle spasm Neuro/STAFF [employer] OFFICER: alert, oriented X 3 Skin: dry, intact, normal color, normal temperat ure, no rash Psychiatry: normal affect, normal mood Results Findings/Data: Laboratory Tests 08/12 08/12 08/12 08/12 08/12 1133 0802 0802 0802 0736 Chemistry Sodium (137 - 145 MMOL/L) 141 Potassium (3.5 - 5.1 MMOL/L) 3.8 Chloride (98 - 107 MMOL/L) 102 Carbon Dioxide (22 - 30 MMOL/L) 31 H BUN (9 - 20 MG/DL) 31 H Creatinine (0.66 - 1.25 MG/DL) 1.10 Glomerular Filtr Rate > 60 Glucose (74 - 106 MG/DL) 165 H POC Glucose (60 - 99 MG/DL) 161 H 178 H Mean Blood Glucose (70 - 110 MG/DL) 126 H Hemoglobin A1c (4.8 - 5.9 %) 6.0 H Calcium (8.4 - 10.2 MG/DL) 10.3 H Total Bilirubin (0.2 - 1.3 MG/DL) 0.6 AST (17 - 59 UNITS/L) 23 ALT (<50 UNITS/L) 15 Total Alk Phosphatase (38 - 126 87 UNITS/L) Troponin I (0.012 - 0.033 NG/ML) 0.089 H Total Protein (6.2 - 7.6 G/DL) 7.6 Albumin (3.5 - 5.0 G/DL) 4.1 Free T4 (0.78 - 2.19 NG/DL) 1.5 08/12 08/12 08/11 0147 0147 2354 Chemistry POC Glucose (60 - 99 MG/DL) 211 H Magnesium (1.6 - 2.3 MG/DL) 1.8 Troponin I (0.012 - 0.033 NG/ML) 0.075 H LDL Cholesterol (100 - 129 mg/dL) 92 L TSH (0.65 - 4.68 MIU/L) 0.391 L Laboratory Tests 08/12 0802 Hematology WBC (3.8 - 9.8 K/MM3) 9.9 H RBC (3.95 - 5.67 M/MM3) 4.53 Hgb (12.4 - 16.7 G/DL) 12.7 Hct (35.9 - 49.5 %) 40.3 MCV (81.7 - 96.1 fL) 89 MCH (27.6 - 33.2 pg) 28.0 MCHC (32.9 - 35.5 %) 31.5 L RDW (12.1 - 15.2 %) 13.9 Plt Count (129 - 368 K/MM3) 226 MPV (7.4 - 10.4 fl) 10.8 H Neut % (Auto) (43 - 75 %) 82.3 H Lymph % (Auto) (14 - 44 %) 10.8 L Ashley % (Auto) (4 - 13 %) 5.7 Eos % (Auto) (0 - 6 %) 0.0 Baso % (Auto) (0 - 2 %) 0.2 Neut # (Auto) (2.0 - 7.6 K/mm3) 8.12 H Lymph # (Auto) (1.0 - 3.8 K/mm3) 1.06 Ashley # (Auto) (0.1 - 0.8 K/mm3) 0.56 Eos # (Auto) (0.0 - 0.2 K/mm3) 0.00 Baso # (Auto) (0.0 - 0.2 K/mm3) 0.02 Immature Gran % (0.0 - 2.0 %) 1.0 Nucleated RBC % (0 - 1.0 %) 0.0 Nucleated RBCs # (Man) (0.0 - 0.1 K/mm3) 0.00 Laboratory Tests 08/12 0150 Urines Urine Color (YELLOW) YELLOW Urine Appearance (CLEAR) CLEAR Urine pH (5.0 - 9.0) 5.0 Ur Specific Stanford (1.003 - 1.030) 1.010 Urine Protein (NEGATIVE MG/DL) NEGATIVE Urine Glucose (UA) (NORMAL MG/DL) NORMAL Urine Ketones (NEGATIVE MG/DL) NEGATIVE Urine Blood (NEGATIVE German/mm3) NEGATIVE Urine Nitrite (NEGATIVE) NEGATIVE Urine Bilirubin (NEGATIVE MG/DL) NEGATIVE Urine Urobilinogen (NORMAL MG/DL) NORMAL Ur Leukocyte Esterase (NEGATIVE /mm3) NEGATIVE Urine Culture Screen (Culture Chk Criteria) NEG ATIVE, NO CULTURE Diagnosis, Assessment Plan Problem List/A P: 1. Afib with RVR, currently rate controlled 2. HTN (hypertension) 3. Diabetes mellitus type 2 in obese A1c 6, currently at goal 4. CAD (coronary artery disease) 5. Shortness of breath 6. Leukocytosis 7. VIANNEY (acute kidney injury) 8. Normocytic anemia 9. Elevated troponin 10. Metabolic alkalosis 11. Elevated brain natriuretic peptide (BNP) le francisco Echo w/ EF 55-60% and indeterminate diastolic f unction parameters Orders: Procedure Date/time Status CBC W/AUTO DIFF 08/13 0500 Active BASIC METABOLIC PANEL 08/13 0500 Active GLYCOSYLATED HEMOGLOBIN (A1C) 08/12 0733 Comple te Consultants: cardiology Free Text DxA P Notes Free text DxA P notes: Assessment Mr. Monroy is a 69 yo male with PMH of HTN, DM, CAD s/p CABG on plavix, PTSD who presents from [facility] for shortness of breath/CHRISTENSEN for 2 days duration. At [place], the patient was found to have elevated pro BNP at 10,000, elevated TnI at 0.111 and EKG findings that show the patient to be in afib with a LAFB, evidence of LVH. EKG also sh owed 1-[address] elevations in V2 and V3, with lateral ST depressions and inf/preco rdial TWI. Upon arrival he remained in a fib w/ RVR until receiving 0.5mg Dig, as well as ho me meds resumed including Coreg, after which ventricular response fell to rate 80s. [facility] planned 08/12. Plan 08/11 * Accepted the patient from [place]. Admit to m ed/surg with tele monitoring * COVID negative at [place] * Continue Duonebs * CXR showed stable, chronic changes. No comment on congestion or fluid overload * Consider amiodarone if Afib with RVR given acu te CHF exacerbation * 1 troponin received in [place], at 0.111. Con tinue to trend * Pro-BNP there showed elevation to 10,000. Some rales noted in the bases * Starting on 40 mg IV lasix BID, first dose now . * ECHO ordered * Cardiology consulted. Dr. Mendoza * Lipid profile ordered * A1c ordered * TSH with reflex T4 ordered * Mg ordered * UA ordered * fall precautions * strict I/Os * Weight patient daily * NTG PRN for CP * Restart home medications. Hold BB for acute CH F exacerbation, hold Losartan for VIANNEY 08/12 -Digoxin, Coreg, treatment-dose Lovenox per card iology -Pt currently rate-controlled -[facility] planned for tomorrow -Pt is currently at functional baseline with no SOB or CHRISTENSEN at this time -A1c at goal, anticipate no changes to home samara men -fT4 1.5 DVT Ppx: On Tx dose Lovenox Diet: cardiac Dispo: home pending cardiology clearance Quality: Gen Med Crit Care Current Medications Current medication review: I attest that the foregoing medication list in t he medical record is true, accurate, and complete to the best of my knowled ge. VTE Prophylaxis VTE prophylaxis initiated: yes (plavix) Attestations Attestation needed: teaching physician Sera Casanova 08/21/20 2158: Attestations Teaching Physician Attestation F/U visit w/ resident: I saw the patient with the resident and . . . agree with the resident's findings and plan. agree with the resident's findings and plan EXCE PT: at 1514 Electronically Signed by Sera Casanova MD on 08/04 12/24 at 0378 RPT #:[id number] END OF REPORT 2020-08-12 14:21:00-00:00 [facility] ([facility] Hospitalist Progress Note REPORT#:[id number] REPORT STATUS: Signed DATE:08/12/20 TIME: 1421 PATIENT: OLIVIA MONROY UNIT #: [id number] ROOM/BED: [facility]-A : 48 AGE: 69 SEX: M ATTEND: Sera Casanova MD ADM AUTHOR: Zion Garcia MD R1 * ALL edits or amendments must be made on the el [employer]/computer document * Subjective HPI: Seen and examined. Mr. Martha jeter reports that his SOB is greatly improved. He has been up to go to the bathroom frequently which h e attributes to the Lasix but reports no CHRISTENSEN. Denies cp, palpitations, extremi ty pain or swelling, cough, orthopnea, orthostatic Sx, lightheadedness, dizz iness, f/ch. Review of Systems Respiratory: Denies: CHRISTENSEN (dyspnea on exertion), hemoptysis, n on productive cough, parox nocturnal dyspnea, pleurisy, pleuritic pain, pneumonia, productive cough (sputum ), SOB, wheezing. Cardiovascular: Denies: chest pain, CHRISTENSEN (dyspnea on exer tion), edema, orthopnea, palpitations, parox nocturnal dyspnea. : Reports: frequency. All systems rev neg: except as marked Objective General VS/I O: Vital Signs: Date Time Temp Pulse Resp B/P B/P Pulse O2 O2 F low FiO2 Mean Ox Delivery Rate 08/12 1134 97.9 82 20 120/77 91.4 96 Room air 08/12 0757 99.0 89 20 125/78 93.6 92 Room air 08/12 0237 98.8 113 24 130/75 93.1 97 08/11 2358 98.6 102 24 147/79 101.7 96 24 hour I O ending at 0700: 08/12 0700 08/11 1900 Intake Total Output Total Balance Patient 266 lb Weight Weight Bed scale Measurement Method PATIENT WEIGHT: Weight (lb): 265 Weight (oz): 10.51 Weight (kg): 120.500 Medications: Active Meds + DC'd Last 24 Hrs Digoxin 0.25 MG Q6H IV (CKD) Apixaban 5 MG BID PO (CAN) Aripiprazole 30 MG DAILY PO Aspirin 81 MG DAILY PO Atorvastatin Calcium 40 MG DAILY PO Bupropion HCl 100 MG QAM PO Clopidogrel Bisulfate 75 MG DAILY PO Enoxaparin Sodium 120 MG 0600,1800 SUBQ Losartan Potassium 100 MG DAILY PO (CAN) Insulin Human Lispro LOW DOSE SLIDING SCALE AC HS SUBQ Digoxin 0.5 MG NOW ONE IV (DC) Metoprolol Tartrate 5 MG Q6H PRN PRN IV Gabapentin 1,200 MG TID PO Carvedilol 25 MG DAILY PO Albuterol/Ipratropium 3 ML RTQ4H PRN PRN INH Nitroglycerin 0.4 MG Q5M PRN PRN SL Dextrose/Water 12.5 GM ASDIR PRN IV Dextrose/Water 25 GM ASDIR PRN IV Furosemide 40 MG BID@0900,1700 IV Acetaminophen 650 MG Q4H PRN PRN PO Docusate Sodium 100 MG BID PRN PRN PO Guaifenesin 200 MG Q4H PRN PRN PO Hydralazine HCl 10 MG Q4H PRN PRN IV Ondansetron HCl 4 MG Q8H PRN PRN IV Physical Exam Head/Eyes: atraumatic, EOMI, normocephalic, PERR L ENT: moist mucosal membranes, normal dentition Neck: full range of motion, non-tender, no JVD Cardiovascular: irregularly irregular, tachycard ic, no murmur Respiratory: aerating well, clear to auscultatio n, symmetric expansion Abdomen: obese, non-tender, normal bowel sounds, soft, no distention Genitourinary: no flank pain, no armendariz Extremities: edema, moves all, trace edema to th e bilateral lower extremities noted Musculoskeletal: normal inspection, no CVA tende rness, no muscle spasm Neuro/[employer]ER: alert, oriented X 3 Skin: dry, intact, normal color, normal temperat ure, no rash Psychiatry: normal affect, normal mood Results Findings/Data: Laboratory Tests 08/12 08/12 08/12 08/12 08/12 1133 0802 0802 0802 0736 Chemistry Sodium (137 - 145 MMOL/L) 141 Potassium (3.5 - 5.1 MMOL/L) 3.8 Chloride (98 - 107 MMOL/L) 102 Carbon Dioxide (22 - 30 MMOL/L) 31 H BUN (9 - 20 MG/DL) 31 H Creatinine (0.66 - 1.25 MG/DL) 1.10 Glomerular Filtr Rate > 60 Glucose (74 - 106 MG/DL) 165 H POC Glucose (60 - 99 MG/DL) 161 H 178 H Mean Blood Glucose (70 - 110 MG/DL) 126 H Hemoglobin A1c (4.8 - 5.9 %) 6.0 H Calcium (8.4 - 10.2 MG/DL) 10.3 H Total Bilirubin (0.2 - 1.3 MG/DL) 0.6 AST (17 - 59 UNITS/L) 23 ALT (<50 UNITS/L) 15 Total Alk Phosphatase (38 - 126 87 UNITS/L) Troponin I (0.012 - 0.033 NG/ML) 0.089 H Total Protein (6.2 - 7.6 G/DL) 7.6 Albumin (3.5 - 5.0 G/DL) 4.1 Free T4 (0.78 - 2.19 NG/DL) 1.5 08/12 08/12 08/11 0147 0147 2354 Chemistry POC Glucose (60 - 99 MG/DL) 211 H Magnesium (1.6 - 2.3 MG/DL) 1.8 Troponin I (0.012 - 0.033 NG/ML) 0.075 H LDL Cholesterol (100 - 129 mg/dL) 92 L TSH (0.65 - 4.68 MIU/L) 0.391 L Laboratory Tests 08/12 0802 Hematology WBC (3.8 - 9.8 K/MM3) 9.9 H RBC (3.95 - 5.67 M/MM3) 4.53 Hgb (12.4 - 16.7 G/DL) 12.7 Hct (35.9 - 49.5 %) 40.3 MCV (81.7 - 96.1 fL) 89 MCH (27.6 - 33.2 pg) 28.0 MCHC (32.9 - 35.5 %) 31.5 L RDW (12.1 - 15.2 %) 13.9 Plt Count (129 - 368 K/MM3) 226 MPV (7.4 - 10.4 fl) 10.8 H Neut % (Auto) (43 - 75 %) 82.3 H Lymph % (Auto) (14 - 44 %) 10.8 L Ashley % (Auto) (4 - 13 %) 5.7 Eos % (Auto) (0 - 6 %) 0.0 Baso % (Auto) (0 - 2 %) 0.2 Neut # (Auto) (2.0 - 7.6 K/mm3) 8.12 H Lymph # (Auto) (1.0 - 3.8 K/mm3) 1.06 Ashley # (Auto) (0.1 - 0.8 K/mm3) 0.56 Eos # (Auto) (0.0 - 0.2 K/mm3) 0.00 Baso # (Auto) (0.0 - 0.2 K/mm3) 0.02 Immature Gran % (0.0 - 2.0 %) 1.0 Nucleated RBC % (0 - 1.0 %) 0.0 Nucleated RBCs # (Man) (0.0 - 0.1 K/mm3) 0.00 Laboratory Tests 08/12 0150 Urines Urine Color (YELLOW) YELLOW Urine Appearance (CLEAR) CLEAR Urine pH (5.0 - 9.0) 5.0 Ur Specific Stanford (1.003 - 1.030) 1.010 Urine Protein (NEGATIVE MG/DL) NEGATIVE Urine Glucose (UA) (NORMAL MG/DL) NORMAL Urine Ketones (NEGATIVE MG/DL) NEGATIVE Urine Blood (NEGATIVE German/mm3) NEGATIVE Urine Nitrite (NEGATIVE) NEGATIVE Urine Bilirubin (NEGATIVE MG/DL) NEGATIVE Urine Urobilinogen (NORMAL MG/DL) NORMAL Ur Leukocyte Esterase (NEGATIVE /mm3) NEGATIVE Urine Culture Screen (Culture Chk Criteria) NEG ATIVE, NO CULTURE Diagnosis, Assessment Plan Problem List/A P: 1. Afib with RVR, currently rate controlled 2. HTN (hypertension) 3. Diabetes mellitus type 2 in obese A1c 6, currently at goal 4. CAD (coronary artery disease) 5. Shortness of breath 6. Leukocytosis 7. VIANNEY (acute kidney injury) 8. Normocytic anemia 9. Elevated troponin 10. Metabolic alkalosis 11. Elevated brain natriuretic peptide (BNP) le francisco Echo w/ EF 55-60% and indeterminate diastolic f unction parameters Orders: Procedure Date/time Status CBC W/AUTO DIFF 08/13 0500 Active BASIC METABOLIC PANEL 08/13 0500 Active GLYCOSYLATED HEMOGLOBIN (A1C) 08/12 0733 Comple te Consultants: cardiology Free Text DxA P Notes Free text DxA P notes: Assessment Mr. Monroy is a 69 yo male with PMH of HTN, DM, CAD s/p CABG on plavix, PTSD who presents from [facility] for shortness of breath/CHRISTENSEN for 2 days duration. At [place], the patient was found to have elevated pro BNP at 10,000, elevated TnI at 0.111 and EKG findings that show the patient to be in afib with a LAFB, evidence of LVH. EKG also sh owed 1-[address] elevations in V2 and V3, with lateral ST depressions and inf/preco rdial TWI. Upon arrival he remained in a fib w/ RVR until receiving 0.5mg Dig, as well as ho me meds resumed including Coreg, after which ventricular response fell to rate 80s. [facility] planned 08/12. Plan 08/11 * Accepted the patient from [place]. Admit to m ed/surg with tele monitoring * COVID negative at [place] * Continue Duonebs * CXR showed stable, chronic changes. No comment on congestion or fluid overload * Consider amiodarone if Afib with RVR given acu te CHF exacerbation * 1 troponin received in [place], at 0.111. Con tinue to trend * Pro-BNP there showed elevation to 10,000. Some rales noted in the bases * Starting on 40 mg IV lasix BID, first dose now . * ECHO ordered * Cardiology consulted. Dr. Mendoza * Lipid profile ordered * A1c ordered * TSH with reflex T4 ordered * Mg ordered * UA ordered * fall precautions * strict I/Os * Weight patient daily * NTG PRN for CP * Restart home medications. Hold BB for acute CH F exacerbation, hold Losartan for VIANNEY 08/12 -Digoxin, Coreg, treatment-dose Lovenox per card iology -Pt currently rate-controlled -[facility] planned for tomorrow -Pt is currently at functional baseline with no SOB or CHRISTENSEN at this time -A1c at goal, anticipate no changes to home samara men -fT4 1.5 DVT Ppx: On Tx dose Lovenox Diet: cardiac Dispo: home pending cardiology clearance Quality: Gen Med Crit Care Current Medications Current medication review: I attest that the foregoing medication list in t he medical record is true, accurate, and complete to the best of my knowled ge. VTE Prophylaxis VTE prophylaxis initiated: yes (plavix) Attestations Attestation needed: teaching physician at 1514 RPT #:[id number] END OF REPORT 2020-08-12 12:37:00-00:00 [id number] [facility] [address] [place] [address] PATIENT NAME: OLIVIA MONROY ADMIT DATE: ACCOUNT NO: [id number] ROOM NO: Z.412 AGE: 69 REPORT TYPE: ECHOCARDIOGRAM SEX: M ADMITTING PHYSICIAN:Sera Casanova MD ATTENDING PHYSICIAN:Sera Casanova MD *[facility]* [address] [place] [address] Transthoracic Echocardiogram Patient: Olivia Monroy Study Date: 08/12/2020 BP: 130 / 75 Location: [facility] URN: [id number] : 1950 Age: 69 Height: 70 in / 177.8 cm Gender: M Weight: 265 lb / 120.5 kg BMI/BSA: 38.1 kg/m 2 / 2.49 m 2 *Ordering Physician: * Gail Mendoza MD *Interpreting Physician: * Gail Mendoza MD *Bow Stapler: * Brandy Garrett RVT Indications: CAD Hughes Vessel. Congestive Heart Failure. CMP. Study data: Transthoracic echocardiogram. Proced ure: Transthoracic echocardiography was performed. Images were obta ined using a [employer] cardiac ultrasound machine. Image quality was adequate. M-mode, complete 2D, complete spectral Doppler, and color Doppler. Lo cation: Bedside. Patient status: Inpatient. Patient room number: 412. Study status: Routine. Rhythm: Atrial fibrillation. Findings Left ventricle: The cavity size is normal. Wall thickness is mildly increased. Systolic function is normal. The fareed mated ejection fraction is 55-60%. Wall motion is normal; there are no r egional wall motion abnormalities. The pulmonary vein flow pattern i s normal. Left ventricular diastolic function parameters are in determinate. PATIENT NAME: OLIVIA MONROY [id number] Right ventricle: The cavity size is normal. Syst olic function is normal. The tricuspid jet envelope definition is inadequate for estimation of RV systolic pressure. Left atrium: The atrium is normal in size. Right atrium: The atrium is normal in size. Atrial septum: No defect or patent foramen ovale is identified. Aorta: The aorta is poorly visualized. The aorti c root is not dilated. Aortic valve: The valve is trileaflet. The leafl ets are mildly calcified. Cusp separation is normal. Transvalvu lar velocity is within the normal range. There is no evidence of stenos is. There is no regurgitation. Mitral valve: The leaflets are mildly thickened. There is no significant regurgitation. Tricuspid valve: The leaflets are normal thickne ss. There is no significant regurgitation. Pulmonic valve: Not well visualized. There is mi ld regurgitation. Pericardium: There is no pericardial effusion. N o evidence of pleural fluid accumulation. Systemic veins: Inferior vena cava: The vessel is normal in size . Measurements Left ventricle Value Ref MARCO, LAX 5.0 cm 4.2 - 5.8 ESD, LAX 3.6 cm 2.5 - 4.0 ESD/bsa, LAX 1.4 cm/m 2 1.3 - 2.1 FS, LAX 32 % 25 - 43 ESD/bsa major 2.8 cm/m 2 --------- ax, A4C MARCO/bsa minor 2.8 cm/m 2 --------- ax, A4C MARCO major ax, 9.1 cm --------- A2C ESD major ax, 7.1 cm --------- A2C MARCO/bsa major 3.7 cm/m 2 --------- ax, A2C ESD/bsa major 2.9 cm/m 2 --------- ax, A2C PW, ED 1.3 cm 0.6 - 1.0 PW, ES 1.6 cm --------- IVS/PW, ED 0.95 --------- EF 59 % 52 - 72 IVRT 138 ms --------- E', lat joe, 12.0 cm/sec >=10.0 TDI E/e', lat joe, 7 --------- TDI E', med jeo, 11.0 cm/sec >=7.0 TDI E/e', med joe, 8 --------- TDI PATIENT NAME: OLIVIA MONROY [id number] E', avg, TDI 11.5 cm/sec --------- E/e', avg, TDI 7 <=14 LVOT Value Ref Diam, S 2.21 cm --------- Area 3.8 cm 2 --------- Peak francisco, S 1.34 m/sec --------- Mean francisco, S 0.8 m/sec --------- VTI, S 22.9 cm --------- Peak grad, S 7 mm Hg --------- Mean grad, S 3 mm Hg --------- SV 87 ml --------- Qs 7.1 L/min --------- Qs/bsa 2.9 L/(min-m 2) --------- SV/bsa 35 ml/m 2 --------- Ventricular septum Value Ref IVS, ED 1.3 cm 0.6 - 1.0 IVS, ES 1.7 cm --------- Right ventricle Value Ref MARCO, LAX 2.0 cm --------- S' lateral 19.0 cm/sec 6.0 - 13.4 RVOT Value Ref Peak v, S 0.77 m/sec --------- Peak grad, S 2 mm Hg --------- Left atrium Value Ref AP dim, ES 4.77 cm 3.00 - 4.00 Area ES, A4C 18 cm 2 <=20 AP dim, ES MM 4.4 cm 3.0 - 4.0 LA/Ao root 1.22 --------- ratio, MM Right atrium Value Ref Area, ES, A4C 18 cm 2 10 - 18 Aortic valve Value Ref Leaflet sep, MM 1.99 cm --------- Peak v, S 1.56 m/sec --------- Mean v, S 1.15 m/sec --------- VTI, S 29.3 cm --------- Mean grad, S 5.9 mm Hg --------- Peak grad, S 9.7 mm Hg --------- LVOT/AV, VTI 0.78 --------- ratio LUCAS, VTI 2.99 cm 2 --------- LVOT/AV, Vpeak 0.86 --------- ratio LUCAS, Vmax 3.29 cm 2 --------- PATIENT NAME: OLIVIA MONROY [id number] Mitral valve Value Ref Peak E 0.85 m/sec --------- Mean v, D 0.59 m/sec --------- VTI leaflet 17.1 cm --------- coapt PHT 35 ms --------- Mean grad, D 1.7 mm Hg --------- Peak grad, D 4.1 mm Hg --------- MVA, PHT 6.4 cm 2 --------- Pulmonic valve Value Ref WV v, ED 0.81 m/sec --------- Aortic root Value Ref Root diam 3.0 cm <4.5 Root diam, ED 3.61 cm --------- MM Conclusions Summary: Left ventricle: The cavity size is norm al. Wall thickness is mildly increased. Systolic function is normal. T he estimated ejection fraction is 55-60%. Wall motion is normal; there are no regional wall motion abnormalities. Left ventricular diastolic function parameters are indeterminate. Prepared and electronically ceci d by Gail Mendoza MD 08/12/2020 12:37 at 1238 PATIENT NAME: OLIVIA MONROY [id number] 2020-08-12 07:53:00-00:00 [id number] [place] [id number] PATIENT NAME: OLIVIA MONROY ADMIT DATE: ACCOUNT NO: [id number] ROOM NO: [facility] AGE: 69 REPORT TYPE: CONSULTATION REPORT SEX: M ADMITTING PHYSICIAN:Sera Casanova MD ATTENDING PHYSICIAN:Sera Casanova MD CONSULTATION DATE: 08/12/2020 CONSULTING PHYSICIAN: Kavin Armas MD REFERRING PHYSICIAN: Daniel Monreal M.D. REASON FOR CONSULTATION: We were asked to evalua te this patient for atrial fibrillation. HISTORY OF PRESENT ILLNESS: This is a 69-year-ol d male with a history of coronary artery disease, status post aor tocoronary bypass who presented to the [facility] Emergency Room with complaints of increasing shortness of breath. He has had shortness of breath over the past 2 weeks. It has been intermittent initially, but recurred and has bec ome worse. He denies chest pain. He has had no edema. He has had no prior history of atrial fibrillation. He was noted to be in atrial fibrillation with rapid ventricular response in [place]. He was transferred here for further ev aluation and care. PAST MEDICAL HISTORY: 1. Coronary artery disease, status post PTCA and stent and status post aortocoronary bypass. 2. Hypertension. 3. Hyperlipidemia. SOCIAL HISTORY: Smokes 1 pack of cigarettes per day. No alcohol. FAMILY HISTORY: Positive for heart disea se in his father, who had a myocardial infarction. ALLERGIES: NKDA. HOME MEDICATIONS: Clopidogrel, bupropion, Lipito r, aspirin, Abilify, insulin, digoxin, gabapentin, carvedilol, DuoNeb, furosem lan. REVIEW OF SYSTEMS: CONSTITUTIONAL: No complaints of fever or chills . HEAD: No complaints of headache. EYES: No complaints of blurred vision. RESPIRATORY: Shortness of breath as noted above. No complaints of cough. CARDIOVASCULAR: No complaints of chest pain or p alpitations. GASTROINTESTINAL: No complaints of nausea or vom iting. GENITOURINARY: No complaints of urinary frequenc y or dysuria. PATIENT NAME: OLIVIA MONROY [id number] MUSCULOSKELETAL: No complaints of joint pain. SKIN: No complaints of skin rash. NEUROLOGIC: No complaints of focal weakness. PHYSICAL EXAMINATION: GENERAL: Well-nourished male in no acute distres s. VITAL SIGNS: Temperature 98.8, blood pressure 13 0/75, pulse 113, respiratory rate 24, O2 saturations 97%. HEENT: Atraumatic, normocephalic. RESPIRATORY: Normal effort. LUNGS: Clear to auscultation bilaterally. CARDIOVASCULAR: Irregularly irregular, tachycard ic, S1 and S2. No S3 or S4. NECK: JVP is normal. There are no carotid bruits . EXTREMITIES: No edema. NEUROLOGIC: Cranial nerves II through XII are in tact. No focal motor deficits noted. DIAGNOSTIC DATA: Electrocard iogram on 08/11/2020 shows atrial fibrillation with rapid ventricular response, ST-T wave abnormalit y. LABORATORY DATA: Magnesium 1.8. Troponin I is 0. 075. LDL 92. TSH 0.391. IMPRESSION: 1. Atrial fibrillation with rapid ventricular re sponse. 2. Troponin leak. The patient has no complaints of chest pain. 3. Coronary artery disease, status post aortocor onary bypass. 4. Hypertension. 5. Hyperlipidemia. RECOMMENDATIONS: 1. Load with digoxin and continue carvedilol. 2. Anticoagulate. 3. We will follow serial cardiac enzymes. 4. A 2D echo. Dictated By: Kavin Armas MD WT: CON:Z.HIM/PEPGR/NTS Conf#: [id number]#: [id number] Authenticated and Edited by Kavin Armas MD On 08/13/20 9:10:40 AM at 0912 PATIENT NAME: OLIVIA MONROY [id number] 2020-08-12 00:54:00-00:00 [facility] ([facility] Hospitalist History Physical REPORT#:[id number] REPORT STATUS: Signed DATE:08/12/20 TIME: 005 PATIENT: OLIVIA MONROY UNIT #: [id number] ROOM/BED: [address] : 48 AGE: 69 SEX: M ATTEND: Daniel Monreal MD ADM AUTHOR: José Miguel Walters DO R1 * ALL edits or amendments must be made on the [employer]/computer document * History of Present Illness HPI Chief complaint: Shortness of Breath PCP: PCP: Undefined Provider HPI: Mr. Monroy is a 69 yo male with PMH of HTN, DM, CAD s/p CABG on plavix, PTSD who presents from [facility] for shortness of breath for 2 days duration. The patient states he has been experiencing shortness of breath that is worse with exertion for 2 days, but has become continuous over the last day which prompted EMS for tx to [place]. He had a remote history of shortness of breath 1 week ago in [place] visiting family , but the symptoms self-resolvled and he did not go to the ER for evaluation. At [place], the patient was found to have elevated pro BNP at 10,000, elevated troponin at 0.111 and EKG findings that show the patient to be in afib with a LAFB, evidence of LVH. EKG also showed 1 -[address] elevations in V2 and V3, with ST depressions in the latera l leads and T-wave inversions within leads II, III, aVF, V4, V5, V6. He was also noted to have an AK I with SCr at 1.1 and BUN 30. The patient did not require O2 at [place], but was placed during transport to our facilities. Currently, alejo wise has improved SOB and is on RA, saturating well. He received duonebs and 40 mg lasix at [facility]. He also received Decadron 10 mg. He currently denies chest pain, fever, chills, a bdominal pain, or any other symptoms. Of note, the patient is from [facility] and go es to the local [place] for his healthcare. He is under the care of Dr. Mendoza, cardiology, for his CAD. The patient reports having an EC HO done in office within the last few weeks, but was unsure of the results. He is compliant with his medical regimen. 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 Respiratory: Reports: CHRISTENSEN (dyspnea on exertion), SOB. Denies: hemoptysis, non productive cough, parox nocturnal dyspn ea, pleurisy, pleuritic pain, pneumonia, productive cough (sputum), wheezing, other. Cardiovascular: Denies: chest pain, CHRISTENSEN (dyspnea on exer tion), edema, orthopnea, palpitations, parox nocturnal dyspnea, other. GI: Denies: abdominal pain, anorexia, constipation, diarrhea, dysphagia, GERD, hematemesis, hematochezia, h iatal hernia, melena, nausea, rectal pain, vomiting, other. : Reports: frequency (after la six), urgency (after lasix). Denies: dysuria, flank pain, hematuria, nocturia, penile discharge, pen ile lesion, testicular pain, testicular swelling, urinary retention, other. All systems rev neg: except as noted Physical Exam VS/I O: Vital Signs Date Temp Pulse Resp B/P B/P Mean Pulse Ox FiO2 08/11 98.6 102 24 147/79 101.7 96 Last Documented: Result Date Time Pulse Ox 96 08/11 2357 B/P 147/79 08/11 2357 B/P Mean 101.7 08/11 2357 Temp 98.6 08/11 2357 Pulse 102 08/11 2357 Resp 24 08/11 2357 Patient Weight and BMI Weight (kg): BMI: General appearance: obese, a lert, awake, oriented, no acute distress, pleasant, conversational, mental status normal, no respira tory distress, Patient is sitting propped up in his bed. He is comfortable appearing. No signs of acute respiratory distress. Not tachypneic, speaking i n full sentences. Head/Eyes: atraumatic, EOMI, normocephalic, PERR L ENT: moist mucosal membranes, normal dentition Neck: full range of motion, non-tender, no JVD Cardiovascular: irregularly irregular, tachycard ic, no murmur Respiratory: rales (bibasila r), aerating well, symmetric expansion, no distress Abdomen: obese, non-tender, normal bowel sounds, soft, no distention Genitourinary: no flank pain, no armendariz Extremities: edema, moves all, trace edema to th e bilateral lower extremities noted Musculoskeletal: normal inspection, no CVA tende rness, no muscle spasm Neuro/STA[employer] OFFICER: alert, oriented X 3 Skin: dry, intact, normal color, normal temperat ure, no rash Psychiatry: normal affect, normal mood Results Findings/Data: Laboratory Tests: 08/11 2353 Chemistry POC Glucose (60 - 99 MG/DL) 211 H Results: labs reviewed, vital signs stable, EKG personally reviewed, rhythm personally rev'd, x-ray pers onally reviewed, current med profile rev'd, outside records Diagnosis, Assessment Plan Problem List/A P: 1. Acute exacerbation of CHF (congestive heart failure) Pro BNP [address]95 at [place] Has been on lasix in the past, not on medicatio n reconciliation today Lasix 40 mg IV given at [place] with improveme nt of symptoms 2. Shortness of breath ?acute CHF exacerbation 3. Elevated troponin 0.111 at [place]. No CP complaints Extensive risk factors: CAD, HTN, DM, CABG, smo ker Trending troponins, however this could be reflective of demand ischemia in the setting of acute CHF exacerbation 4. Afib Appears to be new onset, no reported history He is on Plavix and ASA for CAD history Was rate controlled at [place] 5. VIANNEY (acute kidney injury) Unknown baseline SCr 1.1 today at [place]. May be cardiorenal i n origin, will monitor 6. Leukocytosis ?reactive from CHF exacerbation ?reactive from decadron administration at [facility] No URI symptoms or any other symptoms to sugges t infectious etiology. Will obtain UA to r/o UTI 7. Normocytic anemia Hgb 12.8, MCV 80s. Has some bruising from plavi x and ASA use, may be anemic from this. Will closely monitor and transfuse at hgb <8 8. History of coronary artery bypass graft x 3 9. CAD (coronary artery disease) CABG x3 in 2019 On plavix, adherent with regimen 10. HTN (hypertension) 11. Diabetes mellitus type 2 in obese Free Text A P: Plan * Accepted the patient from [place]. Admit to m ed/surg with tele monitoring * COVID negative at [place] * Continue Duonebs * CXR showed stable, chronic changes. No comment on congestion or fluid overload * Consider amiodarone if Afib with RVR given acu te CHF exacerbation * 1 troponin received in [place], at 0.111. Con tinue to trend * Pro-BNP there showed elevation to 10,000. Some rales noted in the bases * Starting on 40 mg IV lasix BID, first dose now . * ECHO ordered * Cardiology consulted. Dr. Mendoza * Lipid profile ordered * A1c ordered * TSH with reflex T4 ordered * Mg ordered * UA ordered * fall precautions * strict I/Os * Weight patient daily * NTG PRN for CP * Restart home medications. Hold BB for acute CH F exacerbation, hold Losartan for VIANNEY Consultants: cardiology Quality: Gen Med Crit Care Current Medications Current medication review: I attest that the foregoing medication list in t medical record is true, accurate, and complete to the best of my knowled ge. VTE Prophylaxis VTE prophylaxis initiated: yes (plavix) at 0201 RPT #:[id number] END OF REPORT 2020-08-12 00:54:00-00:00 [facility] ([facility]) Hospitalist History Physical REPORT#:[id number] REPORT STATUS: Signed DATE:08/12/20 TIME: 53 PATIENT: OLIVIA MONROY UNIT #: [id number] ROOM/BED: [address] : 48 AGE: 69 SEX: M ATTEND: Sera Casanova MD ADM AUTHOR: José Miguel Walters DO R1 * ALL edits or amendments must be made on the [employer]/computer document * José Miguel Walters 08/12/20 0054: History of Present Illness HPI Chief complaint: Shortness of Breath PCP: PCP: Undefined Provider HPI: Mr. Monroy is a 69 yo male with PMH of HTN, DM, CAD s/p CABG on plavix, PTSD who presents from [facility] for shortness of breath for 2 days duration. The patient states he has been experiencing shortness of breath that is worse with exertion for 2 days, but has become continuous over the last day which prompted EMS for tx to [place]. He had a remote history of shortness of breath 1 week ago in [place] visiting family , but the symptoms self-resolvled and he did not go to the ER for evaluation. At [place], the patient was found to have elevated pro BNP at 10,000, elevated troponin at 0.111 and EKG findings that show the patient to be in afib with a LAFB, evidence of LVH. EKG also showed 1 -[address] elevations in V2 and V3, with ST depressions in the latera l leads and T-wave inversions within leads II, III, aVF, V4, V5, V6. He was also noted to have an AK I with SCr at 1.1 and BUN 30. The patient did not require O2 at [facility] on, but was placed during transport to our facilities. Currently, alejo wise has improved SOB and is on RA, saturating well. He received duonebs and 40 mg lasix at [place]. He also received Decadron 10 mg. He currently denies chest pain, fever, chills, a bdominal pain, or any other symptoms. Of note, the patient is from [facility] and go es to the local [place] for his healthcare. He is under the care of Dr. Mendoza, cardiology, for his CAD. The patient reports having an EC HO done in office within the last few weeks, but was unsure of the results. He is compliant with his medical regimen. 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 Respiratory: Reports: CHRISTENSEN (dyspnea on exertion), SOB. Denies: hemoptysis, non productive cough, parox nocturnal dyspn ea, pleurisy, pleuritic pain, pneumonia, productive cough (sputum), wheezing, other. Cardiovascular: Denies: chest pain, CHRISTENSEN (dyspnea on exer tion), edema, orthopnea, palpitations, parox nocturnal dyspnea, other. GI: Denies: abdominal pain, anorexia, constipation, diarrhea, dysphagia, GERD, hematemesis, hematochezia, h iatal hernia, melena, nausea, rectal pain, vomiting, other. : Reports: frequency (after la six), urgency (after lasix). Denies: dysuria, flank pain, hematuria, nocturia, penile discharge, pen ile lesion, testicular pain, testicular swelling, urinary retention, other. All systems rev neg: except as noted Physical Exam VS/I O: Vital Signs Date Temp Pulse Resp B/P B/P Mean Pulse Ox FiO2 08/11 98.6 102 24 147/79 101.7 96 Last Documented: Result Date Time Pulse Ox 96 08/11 2357 B/P 147/79 08/11 2357 B/P Mean 101.7 08/11 2357 Temp 98.6 08/11 2357 Pulse 102 08/11 2357 Resp 24 08/11 2357 Patient Weight and BMI Weight (kg): BMI: General appearance: obese, a lert, awake, oriented, no acute distress, pleasant, conversational, mental status normal, no respira tory distress, Patient is sitting propped up in his bed. He is comfortable appearing. No signs of acute respiratory distress. Not tachypneic, speaking i n full sentences. Head/Eyes: atraumatic, EOMI, normocephalic, PERR L ENT: moist mucosal membranes, normal dentition Neck: full range of motion, non-tender, no JVD Cardiovascular: irregularly irregular, tachycard ic, no murmur Respiratory: rales (bibasila r), aerating well, symmetric expansion, no distress Abdomen: obese, non-tender, normal bowel sounds, soft, no distention Genitourinary: no flank pain, no armendariz Extremities: edema, moves all, trace edema to th e bilateral lower extremities noted Musculoskeletal: normal inspection, no CVA tende rness, no muscle spasm Neuro/STAFF [employer] OFFICER: alert, oriented X 3 Skin: dry, intact, normal color, normal temperat ure, no rash Psychiatry: normal affect, normal mood Results Findings/Data: Laboratory Tests: 08/11 2353 Chemistry POC Glucose (60 - 99 MG/DL) 211 H Results: labs reviewed, vital signs stable, EKG personally reviewed, rhythm personally rev'd, x-ray pers onally reviewed, current med profile rev'd, outside records Diagnosis, Assessment Plan Problem List/A P: 1. Acute exacerbation of CHF (congestive heart failure) Pro BNP 30681 at [place] Has been on lasix in the past, not on medicatio n reconciliation today Lasix 40 mg IV given at [place] with improveme nt of symptoms 2. Shortness of breath ?acute CHF exacerbation 3. Elevated troponin 0.111 at [place]. No CP complaints Extensive risk factors: CAD, HTN, DM, CABG, smo ker Trending troponins, however this could be reflective of demand ischemia in the setting of acute CHF exacerbation 4. Afib Appears to be new onset, no reported history He is on Plavix and ASA for CAD history Was rate controlled at [place] 5. VIANNEY (acute kidney injury) Unknown baseline SCr 1.1 today at [place]. May be cardiorenal i n origin, will monitor 6. Leukocytosis ?reactive from CHF exacerbation ?reactive from decadron administration at [facility] ton No URI symptoms or any other symptoms to sugges t infectious etiology. Will obtain UA to r/o UTI 7. Normocytic anemia Hgb 12.8, MCV 80s. Has some bruising from plavi x and ASA use, may be anemic from this. Will closely monitor and transfuse at hgb <8 8. History of coronary artery bypass graft x 3 9. CAD (coronary artery disease) CABG x3 in 2019 On plavix, adherent with regimen 10. HTN (hypertension) 11. Diabetes mellitus type 2 in obese Free Text A P: Plan * Accepted the patient from [place]. Admit to m ed/surg with tele monitoring * COVID negative at [place] * Continue Duonebs * CXR showed stable, chronic changes. No comment on congestion or fluid overload * Consider amiodarone if Afib with RVR given acu te CHF exacerbation * 1 troponin received in [place], at 0.111. Con tinue to trend * Pro-BNP there showed elevation to 10,000. Some rales noted in the bases * Starting on 40 mg IV lasix BID, first dose now . * ECHO ordered * Cardiology consulted. Dr. Mendoza * Lipid profile ordered * A1c ordered * TSH with reflex T4 ordered * Mg ordered * UA ordered * fall precautions * strict I/Os * Weight patient daily * NTG PRN for CP * Restart home medications. Hold BB for acute CH F exacerbation, hold Losartan for VIANNEY Consultants: cardiology Quality: Gen Med Crit Care Current Medications Current medication review: I attest that the [facility] is true, accurate, and complete to the best of my knowled ge. VTE Prophylaxis VTE prophylaxis initiated: yes (plavix) Sera Casanova 08/21/20 0149: Attestations Teaching Physician Attestation 1st visit w/o resident: I performed a history and ph ysical examination of the patient and discussed with the resident. I have reviewed the resident's not e and . . . agree with the findings and plan as documented i n the resident's note. agree with the findings and plan as documented i n the resident's note EXCEPT: at 0201 Electronically Signed by Sera Casanova MD on 08/04 12/24 at 2156 RPT #:[id number] END OF REPORT
[2022-11-21 10:27] LABS: Absolute Lymphocytes (CBC) 0.6 K/uL (0.7-4.9); Hematocrit 36.8 % (39.6-49.0); Lymphocytes % 5.9 % (15.3-44.8); MCV 87.7 fL (80-100); MPV 7.4 fL (7.6-11.3)
[2022-11-21 10:31] LABS: Protime INR 1.48
[2022-11-21 10:33] LABS: Specific Gravity 1.015 (1.005-1.030); Urine Clarity Clear (Clear); Urine Color Yellow (Yellow)
[2022-11-21 10:34] LABS: Urine Bilirubin Negative (Negative); Urine Blood Negative (Negative); Urine Glucose Trace (Negative)
[2022-11-21 10:35] LABS: Urine Protein Negative (Negative); Urine Urobilinogen 0.2 mg/dL (0.2-1.0)
[2022-11-21 10:54] LABS: ALT/SGPT 19 U/L (16-61); AST/SGOT 10 U/L (15-37); Albumin 3.2 g/dL (3.4-5.0); Alkaline Phosphatase 97 U/L (45-117); BUN Blood Urea Nitrogen 47 mg/dL (7-18); Bicarbonate 23 mEq/L (21-32); Bilirubin Direct < 0.1 mg/dL (0-0.2); Bilirubin Indirect, Calculated ND mg/dL (0.2-0.8); Bilirubin Total 0.3 mg/dL (0.2-1.0); Glomerular Filtration Rate 40 ml/min (=/>90); Glucose Level 179 mg/dL (74-106); Magnesium 2.1 mg/dL (1.6-2.4); NT PRO-BNP 999 pg/mL (<125); Potassium 4.5 mEq/L (3.5-5.1); Protein, Total 7.1 g/dL (6.4-8.2); Sodium Level 137 mEq/L (136-145); Troponin High Sensitivity 29.5 pg/mL (<58.9)
--- NOTE | 2022-11-21 11:31 | RAD REPORT ---
EXAM DESCRIPTION: RAD - Chest Single View - 11/21/2022 10:39 am CLINICAL HISTORY: DYSPNEA Chest pain. COMPARISON: Chest Single View dated 07/08/2022; Chest Single View dated 05/13/2022; Chest Single View da oziel 05/10/2022; Chest Single View dated 12/04/2021 FINDINGS: Portable technique limits examination quality. Moderate bilateral pulmonary opacities are present probably representing pneumonia. The heart is mild ly enlarged. Dual lead pacer device is present.Sternotomy wires are present. IMPRESSION: Moderate bilateral patchy airspace opacities likely represent pneumonia.
--- NOTE | 2022-11-21 12:09 | ER ---
Nurse's Notes [facility] Name: Ludwin Hsu Age: 72 yrs Sex: Male : 1950 Arrival Date: 11/21/2022 Time: 09:45 Bed 13 Private MD: Diagnosis: Pneumonia, unspecified organism;Severe sepsis without septic shock Presentation: 11/21 10:06 Chief complaint: Patient states: Shaky, cough, SOB, not feeling well. + fever at home. ll1 Code sepsis called EMS states: FS 222 Tylenol 975 mg PO given. 20 G L wrist. Coronavirus screen: Vaccine status: Patient reports receiving the 2nd dose of the covid vaccine. Client denies travel out of the [place] in the last 14 days. At this time, the client does not indicate any symptoms associated with coronavirus-19. Ebola Screen: Patient denies travel to an Ebola-affected area in the 21 days before illness onset. Initial Sepsis Screen: Does the patient meet any 2 criteria? No. Patient's initial sepsis screen is negative. Does the patient have a suspected source of infection? No. Patient's initial sepsis screen is negative. Risk Assessment: Do you want to hurt yourself or someone else? Patient reports no desire to harm self or others. 10:06 Method Of Arrival: EMS ll1 10:06 Acuity: NGUYEN 2 ll1 11:06 Onset of symptoms was November 21, 2022. [facility] Historical: - Allergies: 10:08 NKA; ll1 - PMHx: 10:08 Hypertensive disorder; Diabetes mellitus; ll1 - PSHx: 10:08 pacemaker; ll1 - Immunization history:: Client reports receiving the 2nd dose of the Covid vaccine. - Social history:: Smoking status: Patient/guardian denies using tobacco. - Family history:: not pertinent. Screenin:30 [facility] ED Fall Risk Assessment (Adult) History of falling in the last 3 months, [facility] including since admission No falls in past 3 months (0 pts) Confusion or Disorientation No (0 pts) Intoxicated or Sedated No (0 pts) Impaired Gait No (0 pts) Mobility Assist Device Used No (0 pt) Altered Elimination No (0 pt) Score/Fall Risk Level 0 - 2 = Low Risk Oriented to surroundings, Maintained a safe environment, Hourly rounding (assess needs \T\ fall precautionary measures) done. Abuse screen: Denies threats or abuse. Denies injuries from another. Nutritional screening: No deficits noted. Tuberculosis screening: No symptoms or risk factors identified. Assessment: 10:30 General: Appears in no apparent distress. uncomfortable, Behavior is calm, cooperative, nj1 appropriate for age. Pain: Denies pain. Neuro: Level of Consciousness is awake, alert, obeys commands, Oriented to person, place, time, situation. Cardiovascular: Patient's skin is warm and dry. Respiratory: Reports shortness of breath cough that is non-productive, Airway is patent Respiratory effort is even, unlabored. 11:00 Reassessment: Pt does not want to finish breathing treatment, education provided, still nj1 refuses. Dr Guevara notified. 11:51 Reassessment: Patient appears in no apparent distress at this time. Patient and/or nj1 family updated on plan of care and expected duration. Pain level reassessed. Patient is alert, oriented x 3, equal unlabored respirations, skin warm/dry/pink. 12:44 Reassessment: Patient appears in no apparent distress at this time. Patient and/or nj1 family updated on plan of care and expected duration. Pain level reassessed. Patient is alert, oriented x 3, equal unlabored respirations, skin warm/dry/pink. 13:50 Reassessment: Patient appears in no apparent distress at this time. Patient and/or nj1 family updated on plan of care and expected duration. Pain level reassessed. Patient is alert, oriented x 3, equal unlabored respirations, skin warm/dry/pink. Vital Signs: 10:06 BP 120 / 49; Pulse 108; Resp 26; Temp 100.8; Pulse Ox 100% on R/A; Weight 113.4 kg; ll1 Height 6 ft. 0 in. ; Pain 0/10; 10:30 BP 139 / 52; Pulse 99; Resp 19; Pulse Ox 96% on Breathing tx; nj1 11:50 BP 122 / 64; Pulse 86; Resp 17; Temp 99.4(O); Pulse Ox 99% on R/A; nj1 12:43 BP 107 / 50; Pulse 79; Resp 17; Pulse Ox 100% on R/A; nj1 13:50 BP 108 / 50; Pulse 79; Resp 16; Temp 98.3(O); Pulse Ox 99% on R/A; nj1 15:00 BP 99 / 54; Pulse 64; Resp 19; Pulse Ox 100% on R/A; nj1 10:06 Body Mass Index 33.91 (113.40 kg, 182.88 cm) ll1 10:06 Pain Scale: Adult [facility] ED Course: 09:56 Patient arrived in ED. ds4 10:01 Miguel Guevara MD is Attending Physician. rt 10:01 Arm band placed on Patient placed in an exam room, on a stretcher. ll1 10:05 Triage completed. ll1 10:09 Marleen Tubbs, RN is Primary Nurse. nj1 10:15 First set of blood cultures drawn by me, Second set of blood cultures drawn by me. ds4 10:26 Blood Culture Adult (2) Sent. ds4 10:26 CMP Sent. ds4 10:26 Lactate w/ 2H reflex if indic. Sent. ds4 10:26 Protime (+inr) Sent. ds4 10:26 Urinalysis w/ reflexes Sent. ds4 10:26 Ptt, Activated Sent. ds4 10:26 Basic Metabolic Panel Sent. ds4 10:26 Inserted saline lock: 22 gauge in right forearm, using aseptic technique. Blood ds4 collected. 10:30 Patient has correct armband on for positive identification. Bed in low position. Call [facility] light in reach. Side rails up X 1. 10:30 Provided Education on: fall precautions. ky1 10:41 XRAY Chest (1 view) In Process Unspecified. EDMS 12:09 Sebastian Jules MD is Hospitalizing Provider. rt 14:31 Notified ED physician of a critical lab result(s). repeat lactate 2.9. ll1 15:44 No provider procedures requiring assistance completed. Patient admitted, IV remains in [facility] place. Administered Medications: 10:23 Drug: DuoNeb Nebulize (3:1) (2.5 mg - 0.5 mg) 3 ml Route: Nebulizer; [facility] 11:00 Follow up: Response: No adverse reaction; Other; Pt does not want to finish breathing [facility] tx, education provided, Dr Guevara notified. 10:26 Drug: Cefepime IVPB 2 grams Route: IVPB; Rate: 200 ml/hr; Infused Over: 30 mins; Site: nj1 left forearm; 11:30 Follow up: Response: No adverse reaction; IV Status: Completed infusion; IV Intake: nj1 100ml 11:40 Drug: vancoMYCIN IVPB 1 grams Route: IVPB; Infused Over: 2 hrs; Site: left forearm; nj1 13:40 Follow up: Response: No adverse reaction; IV Status: Completed infusion; IV Intake: nj1 250ml Medication: 15:44 VIS not applicable for this client. nj1 Intake: 11:30 IV: 100ml; Total: 100ml. nj1 13:40 IV: 250ml; Total: 350ml. nj1 Outcome: 12:09 Decision to Hospitalize by Provider. rt 15:44 Admitted to Med/surg accompanied by andrae, elkin 207, Report called to Nurse Evie nj1 15:44 Condition: stable 15:44 Instructed on the need for admit. 16:04 Patient left the ED. 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; ll1 ll1 10: 10:01 PMHx: Myocardial infarction; ll1 ll1 10: 10:01 PMHx: Pancreatitis; ll1 ll1 10: 10:01 PMHx: Diabetes - NIDDM; ll1 ll1 10: 10:01 PMHx: chronic back pain; ll1 ll1 10: 10:01 PMHx: CHF; ll1 ll1 10: 10:01 PMHx: arteriosclerosis; ll1 ll1 10: 10:01 PMHx: COPD; ll1 ll1 10: 10:01 PMHx: Hypertension; ll1 ll1 10: 10:01 PMHx: PTSD; ll1 ll1 10: 10:01 PMHx: tinnitus; ll1 ll1 10: 10:01 PMHx: A fib; 1 1 10: 10:01 PMHx: Hypercholesterolemia; 1 1 10: 10:01 PMHx: hernia; [facility] 10: 10:01 Immunization history: Client reports receiving the 2nd dose of the Covid vaccine, [place] [address] 10: 10:01 Social history: Smoking status: Patient denies any tobacco usage or history of. [place] [address] 10: 10:05 General: Appears uncomfortable, ill, Behavior is calm, cooperative, appropriate [facility] for age, [facility] 10: 10:05 Pain: Denies pain. [place] [address] 10: 10:05 General: Reports feeling ill for fatigue for [place] [address] : 10:03 Onset of symptoms was November 20, 2022 [place] [address] 10: 10:03 Chief complaint: Patient states: Weak, tired, not eating for 2 days. [place] [address] 10:08 10:03 Coronavirus screen: Vaccine status: Patient reports receiving the 2nd dose of the [facility] covid vaccine. Client denies travel out of the [place] in the last 14 days. At this time, the client does not indicate any symptoms associated with coronavirus-19. [facility] 10: 10:03 Ebola Screen: Patient denies travel to an Ebola-affected area in the 21 days 1 before illness onset. [facility] 10: 10:03 Initial Sepsis Screen: Does the patient meet any 2 criteria? No. Patient's 1 initial sepsis screen is negative. Does the patient have a suspected source of infection? No. Patient's initial sepsis screen is negative. [facility] 10:08 10:03 Risk Assessment: Do you want to hurt yourself or someone else? Patient reports no [facility] desire to harm self or others. [facility] 10: 10:03 Acuity: NGUYEN 3 [place] [address] 10:08 10:03 Method Of Arrival: Ambulatory [place] [address] 10: 10:03 BP 124 / 74; Pulse 62bpm; Resp 17bpm; Pulse Ox 96% RA; Temp 98.5F; 99.79 kg; ll1 Height 5 ft. 10 in.; BMI: 31.5; Pain 0/10, Adult; ll1
--- NOTE | 2022-11-21 12:10 | EDPHYS ---
Physician Documentation [facility] Name: Ludwin Hsu Age: 72 yrs Sex: Male : 1950 Arrival Date: 11/21/2022 Time: 09:45 Bed 13 Private MD: ED Physician Miguel Guevara HPI: 11/21 12:13 This 72 yrs old Male presents to ER via EMS with complaints of Shortness of breath. rt 12:13 Has had a coughPatient presents to the ED with dyspnea starting today. The patient. rt Denies chest pain. Patient was given a breathing treatment by EMS that did improve his symptoms. Was noted to be febrile to 102 at home. Denies chest pain. Denies other acute complaints at this time, symptoms are moderate severity, no other aggravating or alleviating factors.. Historical: - Allergies: 10:08 NKA; ll1 - PMHx: 10:08 Hypertensive disorder; Diabetes mellitus; ll1 - PSHx: 10:08 pacemaker; ll1 - Immunization history:: Client reports receiving the 2nd dose of the Covid vaccine. - Social history:: Smoking status: Patient/guardian denies using tobacco. - Family history:: not pertinent. ROS: 12:13 Cardiovascular: Negative for chest pain, palpitations, and edema, Abdomen/GI: Negative rt for abdominal pain, nausea, vomiting, diarrhea, and constipation, MS/Extremity: Negative for injury and deformity, Skin: Negative for injury, rash, and discoloration, Neuro: Negative for headache, weakness, numbness, tingling, and seizure, Psych: Negative for depression, anxiety, suicide ideation, homicidal ideation, and hallucinations. 12:13 Constitutional: Positive for chills, fever. 12:13 Respiratory: Positive for cough, shortness of breath. Exam: 12:13 Constitutional: This is a well developed, well nourished patient who is awake, alert, rt and in no acute distress. Head/Face: Normocephalic, atraumatic. Chest/axilla: Normal chest wall appearance and motion. Nontender with no deformity. No lesions are appreciated. Cardiovascular: Regular rate and rhythm with a normal S1 and S2. No gallops, murmurs, or rubs. Normal PMI, no JVD. No pulse deficits. Abdomen/GI: Soft, non-tender, with normal bowel sounds. No distension or tympany. No guarding or rebound. No evidence of tenderness throughout. Skin: Warm, dry with normal turgor. Normal color with no rashes, no lesions, and no evidence of cellulitis. MS/ Extremity: Pulses equal, no cyanosis. Neurovascular intact. Full, normal range of motion. Neuro: Awake and alert, GCS 15, oriented to person, place, time, and situation. Cranial nerves II-XII grossly intact. Motor strength 5/5 in all extremities. Sensory grossly intact. Cerebellar exam normal. Normal gait. Psych: Awake, alert, with orientation to person, place and time. Behavior, mood, and affect are within normal limits. 12:13 Respiratory: Rhonchi heard on the right lung, no respiratory distress. 12:16 ECG was reviewed by the Attending Physician. rt Vital Signs: 10:06 BP 120 / 49; Pulse 108; Resp 26; Temp 100.8; Pulse Ox 100% on R/A; Weight 113.4 kg; ll1 Height 6 ft. 0 in. ; Pain 0/10; 10:30 BP 139 / 52; Pulse 99; Resp 19; Pulse Ox 96% on Breathing tx; nj1 11:50 BP 122 / 64; Pulse 86; Resp 17; Temp 99.4(O); Pulse Ox 99% on R/A; nj1 12:43 BP 107 / 50; Pulse 79; Resp 17; Pulse Ox 100% on R/A; nj1 13:50 BP 108 / 50; Pulse 79; Resp 16; Temp 98.3(O); Pulse Ox 99% on R/A; nj1 15:00 BP 99 / 54; Pulse 64; Resp 19; Pulse Ox 100% on R/A; nj1 10:06 Body Mass Index 33.91 (113.40 kg, 182.88 cm) ll1 10:06 Pain Scale: Adult ll1 MDM: 10:01 Patient medically screened. rt 12:13 Differential diagnosis: Pneumonia, CHF, sepsis. Antibiotic administration: Data rt reviewed: vital signs, nurses notes, lab test result(s), EKG, radiologic studies. Consideration of Admission/Observation Patient was admitted/placed on observation. Management of patient was discussed with the following: Hospitalist: Agrees to admit. Independent interpretation of the following test(s) in the Emergency Department X-Ray: My interpretation is Pneumonia seen on interpretation of x-ray images. Test considered but Not performed: CT: Low suspicion for pulmonary embolism, CT angiogram not indicated. Care significantly affected by the following chronic conditions: Diabetes, Hypertension. Counseling: I had a detailed discussion with the patient and/or guardian regarding: the historical points, exam findings, and any diagnostic results supporting the discharge/admit diagnosis, lab results, radiology results, the need for further work-up and treatment in the hospital. ED course: Patient received about a gram of Tylenol as well as 1 L of NS by EMS, given patient's cardiac history, believe that he is at risk of volume overload, therefore, will stop at 1 L of fluids.. 11/21 10:03 Order name: Basic Metabolic Panel rt 11/21 10:03 Order name: CBC with Diff; Complete Time: 11:04 rt 11/21 10:03 Order name: LFT's; Complete Time: 11:04 rt 11/21 10:03 Order name: Magnesium; Complete Time: 11: rt 11/21 10:03 Order name: NT PRO-BNP; Complete Time: 11:04 rt 11/21 10:03 Order name: Troponin HS; Complete Time: 11:04 rt 11/21 10:03 Order name: Blood Culture Adult (2) rt 11/21 10:03 Order name: CMP; Complete Time: 11:04 rt 11/21 10:03 Order name: Lactate w/ 2H reflex if indic.; Complete Time: 11:04 rt 11/21 10:03 Order name: Protime (+inr); Complete Time: 11:04 rt 11/21 10:03 Order name: Ptt, Activated; Complete Time: 11:04 rt 11/21 10:03 Order name: Urinalysis w/ reflexes; Complete Time: 11:04 rt 11/21 10:54 Order name: Glucose, Ancillary Testing; Complete Time: 11:04 EDMS 11/21 14:02 Order name: Magnesium EDMS 11/21 14:02 Order name: Phosphorus EDMS 11/21 14:02 Order name: Urinalysis w/ reflexes EDMS 11/21 14:02 Order name: Basic Metabolic Panel EDMS 11/21 14:02 Order name: Basic Metabolic Panel EDMS 11/21 14:02 Order name: CBC with Automated Diff EDMS 11/21 14:02 Order name: CBC with Automated Diff EDMS 11/21 14:02 Order name: NT PRO-BNP EDMS 11/21 14:02 Order name: NT PRO-BNP EDTX 11/21 14:32 Order name: Lactate Sepsis 2 HR Follow-up; Complete Time: 14:57 EDMS 11/21 10:03 Order name: XRAY Chest (1 view); Complete Time: 11:36 rt 11/21 13:54 Order name: Thorax Wo Con; Complete Time: 14:57 EDMS 11/21 10:03 Order name: EKG; Complete Time: 10:04 rt 11/21 14:02 Order name: 60g Consistent Carbohydrate (ADA 1800/1999) EDMS 11/21 10:03 Order name: Cardiac monitoring; Complete Time: 10:26 rt 11/21 10:03 Order name: EKG - Nurse/Tech; Complete Time: 10:26 rt 11/21 10:03 Order name: IV Saline Lock; Complete Time: 10:26 rt 11/21 10:03 Order name: Labs collected and sent; Complete Time: 10:26 rt 11/21 10:03 Order name: O2 Per Protocol; Complete Time: 10:26 rt 11/21 10:03 Order name: O2 Sat Monitoring; Complete Time: 10:26 rt 11/21 10:03 Order name: Accucheck; Complete Time: 10:46 rt 11/21 10:03 Order name: IV Saline Lock - Large Bore; Complete Time: 10:26 rt 11/21 10:03 Order name: Vital Signs; Complete Time: 10:37 rt EC:16 Rate is 111 beats/min. Rhythm is regular, Paced. QRS interval is normal. QT interval is rt normal. No Q waves. Administered Medications: 10:23 Drug: DuoNeb Nebulize (3:1) (2.5 mg - 0.5 mg) 3 ml Route: Nebulizer; nj1 11:00 Follow up: Response: No adverse reaction; Other; Pt does not want to finish breathing nj1 tx, education provided, Dr Guevara notified. 10:26 Drug: Cefepime IVPB 2 grams Route: IVPB; Rate: 200 ml/hr; Infused Over: 30 mins; Site: [facility] left forearm; 11:30 Follow up: Response: No adverse reaction; IV Status: Completed infusion; IV Intake: nj1 100ml 11:40 Drug: vancoMYCIN IVPB 1 grams Route: IVPB; Infused Over: 2 hrs; Site: left forearm; nj1 13:40 Follow up: Response: No adverse reaction; IV Status: Completed infusion; IV Intake: nj1 250ml Disposition Summary: 11/21/22 12:09 Hospitalization Ordered Hospitalization Status: Inpatient Admission rt Provider: Sebastian Jules rt Location: Telemetry/MedSurg (Inpatient) rt Condition: Stable rt Problem: new rt Symptoms: have improved rt Bed/Room Type: Standard rt Room Assignment: 207(11/21/22 14:37) bd Diagnosis - Pneumonia, unspecified organism rt - Severe sepsis without septic shock rt Forms: - Medication Reconciliation Form rt - SBAR form rt Signatures: Dispatcher [employer] EDMS [place] Lynsay RN RN ll1 Miguel Guevara MD MD rt Marleen Tubbs RN RN nj1 Corrections: (The following items were deleted from the chart) 10: 10:01 Allergies: Hydrocodone-Acetaminophen; ll1 ll1 10: 10:01 Allergies: Erythromycin; ll1 ll1 10: 10:01 PMHx: kidney disease; ll1 ll1 10: 10:01 PMHx: malignant neoplasm of epidimyis; 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; ll1 ll1 10: 10:01 PMHx: Myocardial infarction; ll1 ll1 10: 10:01 PMHx: Pancreatitis; ll1 ll1 10: 10:01 PMHx: Diabetes - NIDDM; ll1 ll1 10: 10:01 PMHx: chronic back pain; ll1 ll1 10: 10:01 PMHx: CHF; ll1 ll1 10: 10:01 PMHx: arteriosclerosis; ll1 ll1 10: 10:01 PMHx: COPD; ll1 ll1 10: 10:01 PMHx: Hypertension; ll1 ll1 10: 10:01 PMHx: PTSD; ll1 ll1 10: 10:01 PMHx: tinnitus; ll1 ll1 10: 10:01 PMHx: A fib; ll1 ll1 10: 10:01 PMHx: Hypercholesterolemia; ll1 ll1 10: 10:01 PMHx: hernia; 1 ll1 10: 10:01 Immunization history: Client reports receiving the 2nd dose of the Covid vaccine, [facility] ll1 10: 10:01 Social history: Smoking status: Patient denies any tobacco usage or history of. ll1 ll1 14:37 12:09 rt bd
[2022-11-21] MEDS ORDERED: TRAMADOL HCL 50 MG TAB PO PRN (13:55)
[2022-11-21] MEDS ORDERED: ACETAMINOPHEN 325 MG TABLET PO PRN (13:55)
[2022-11-21] MEDS ORDERED: ONDANSETRON 4 MG/2 ML VIAL IV PRN (13:59)
[2022-11-21] MEDS: ALBUTEROL 2.5 MG/3 ML NEB SOL NEB SCH ×2 (14:00→20:00)
[2022-11-21] MEDS: IPRATROPIUM BROM 0.5MG/2.5ML NEB SCH ×2 (14:00→20:00)
--- NOTE | 2022-11-21 14:56 | RAD REPORT ---
EXAM DESCRIPTION: CT - Thorax Wo Con - 11/21/2022 2:04 pm CLINICAL HISTORY: sob/cough COMPARISON: November 21, 2022 x-ray TECHNIQUE: Computed axial tomography of the chest was obtained. Contrast was not requested. All CT scans are performed using dose optimization technique as appropriate and may include automated exposure control or mA/KV adjustment according to patient size. FINDINGS: The evaluation of mediastinum, devin and vessels is limited secondary to lack of IV contras t administration. Left and mild to moderate right tree-in-bud opacities. Left lower lobe is the most involved. No mediastinal or hilar lymphadenopathy is seen. A pleural effusion is not present. No pericardial effusion. Coronary arterial calcifications IMPRESSION: Moderate left and mild to moderate right tree-in-bud opacities probably indicating an at ypical infection
[2022-11-21] MEDS: CEFEPIME 2 GM in NA CHLORIDE 0.9% 100 ML IV SCH (15:00)
[2022-11-21] MEDS: INSULIN -REGULAR HUMAN 50 UNIT/0.5 ML ML SQ SCH ×2 (16:30→21:00)
--- NOTE | 2022-11-21 16:41 | P.HP ---
Certification for Inpatient Patient admitted to: Inpatient With expected LOS: >2 Midnights Patient will require the following post-hospital care: None Practitioner: I am a practitioner with admitting privileges, knowledge of patient current condition, hospital course, and medical plan of care. Services: Services provided to patient in accordance with Admission requirements found in Title 42 Section 412.3 of the Code of Federal Regulations Patient History Date of Service: 11/21/22 Reason for admission: Shortness of breath and cough History of Present Illness: Patient is a 72-year-old male with a past medical history significant for PTSD, anxiety disorder, hep C, hyperlipidemia, CAD, CABG, NORRIS, obesity, COPD, DM2 with neuropathy, hypertension who presents with complaint of cough and shortness of breath. Patient reported he started having coughing episodes yesterday which became worse over time. Patient reported that when he woke up this morning patient started having worsening shortness of breath. Patient reported associated signs and symptoms of chills, fever, fatigue, weakness and generalized malaise. Patient denies any other signs and symptoms. Symptoms are aggravated or relieved by nothing. Patient decided to present to the hospital due to worsening symptoms. Allergies No Known Allergies Allergy (Verified 01/13/21 22:24) Home Medications: Aripiprazole [Abilify] 30 mg PO DAILY 08/28/20 Atorvastatin Calcium [Lipitor] 40 mg PO BEDTIME 08/28/20 Rivaroxaban [Xarelto*] 20 mg PO DAILY 6PM 08/28/20 Spironolactone [Aldactone] 25 mg PO DAILY #30 tablet 09/23/20 Albuterol Neb [Proventil 0.083% Neb Soln] 2.5 mg NEB Q6HP PRN #120 amp 04/21/21 Folic Acid 1 mg PO DAILY 05/11/22 Furosemide [Lasix*] 60 mg PO TID 05/11/22 Magnesium Oxide 420 mg PO DAILY 05/11/22 Metoprolol Succinate [Toprol Xl*] 50 mg PO DAILY 05/11/22 Amlodipine [Norvasc*] 5 mg PO DAILY #30 tab 07/13/22 Gabapentin [Neurontin*] 1 cap PO TID #90 cap 07/13/22 Thiamine HCl [Vitamin B-1*] 100 mg PO DAILY #30 tab 07/13/22 - Past Medical/Surgical History Has patient received pneumonia vaccine in the past: No Diabetic: Yes -: Hypertension -: Diabetes mellitus type 2 -: Posttraumatic stress disorder -: Anxiety -: Hepatitis-C -: Hyperlipidemia -: CAD, stent placement x2, atrial fibrillation, chronic diastolic CHF -: Obstructive sleep apnea -: Obesity -: Diabetic neuropathy -: History pancreatitis -: COPD, tobacco abuse -: 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 - Family History Father -: Other (see notes) Notes: CHF Mother -: Cancer Notes: breast cancer Sister -: Cancer Notes: colon cancer Brother -: Cancer Notes: throat cancer - Social History Smoking Status: Former smoker Alcohol use: No CD- Drugs: No Caffeine use: Yes Place of Residence: Home Review of Systems General: Fever, Chills, Weakness, Malaise, Other (Fatigue) Eyes: Unremarkable ENT: Unremarkable Respiratory: Cough, Shortness of Breath Cardiovascular: Unremarkable Gastrointestinal: Unremarkable Genitourinary: Unremarkable Musculoskeletal: Unremarkable Integumentary: Unremarkable Neurological: Weakness Lymphatics: Unremarkable Physical Examination - Vital Signs Temperature: 99.4 F Blood Pressure: 107/50 Pulse: 79 Respirations: 17 - Physical Exam General: Alert, In no apparent distress, Oriented x3, Cooperative HEENT: Atraumatic, PERRLA, Mucous membr. moist/pink, EOMI, Sclerae nonicteric Neck: Supple, 2+ carotid pulse no bruit, No LAD, Without JVD or thyroid abnormality Respiratory: Diminished Cardiovascular: No edema, Normal S1 S2, Irregular heart rate/rhythm Capillary refill: <2 Seconds Gastrointestinal: Normal bowel sounds, Soft and benign, No tenderness Musculoskeletal: No clubbing, No swelling, No tenderness Integumentary: No rashes, No significant lesion Neurological: Normal speech, Normal tone, Normal affect Lymphatics: No axilla or inguinal lymphadenopathy - Studies Laboratory Data (last 24 hrs) 11/21/22 10:15: PT 16.3 H, INR 1.48, APTT 36.0 11/21/22 10:15: WBC 10.20, Hgb 12.1 L, Hct 36.8 L, Plt Count 164 11/21/22 10:15: Sodium 137, Potassium 4.5, BUN 47 H, Creatinine 1.77 H, Glucose 179 H, Magnesium 2.1, Total Bilirubin 0.3, AST 10 L, ALT 19, Alkaline Phosphatase 97 Assessment and Plan - Plan --Pneumonia. CT chest indicates Moderate left and mild to moderate right tree-in-bud opacities probably indicating an atypical infection. Blood cultures pending. Continue antibiotics, neb treatment with albuterol\Atrovent and O2 therapy. --Acute on chronic COPD exacerbation. Continue current treatment regimen. --DM2 with neuropathy. BS monitoring with sliding scale insulin. Continue ga bapentin for his neuropathy --Hyperlipidemia. Continue statin. -- Hypertension. Patient currently hypotensive. We will hold off on BP meds. We will continue to monitor blood pressure levels. --Anxiety disorder\PTSD. Continue home medications. --History of hep C. Status unknown. Continue supportive care. --NORRIS. Continue supportive care. -- Obesity likely secondary to excess calories intake. Patient counseled on weight reduction, diet and excise therapy. --Atrial fibrillation. Continue Xarelto. --Acute on chronic diastolic CHF exacerbation. Patient currently hypotensive. Will hold off on Lasix. Cardiology consulted. Daily weight and strict I/O. Will await further recommendations from rehab liaison. --History of CAD\CABG. Continue aspirin, statin and Xarelto. --Anemia of chronic disease. H&H stable. We will continue to monitor hemoglobin and transfuse if less than 7.0. -VIANNEY. Likely prerenal. Secondary to poor p.o. intake. Nephrology consulted. Will await further recommendations. --DVT prophylaxis with Xarelto. Discharge Plan: Home Plan to discharge in: Greater than 2 days - Advance Directives Does patient have a Living Will: No Does patient have a Durable POA for Healthcare: No - Code Status/Comfort Care Code Status Assessed: Yes Physician Review: Patient Assessed, Agree with Above Assessment and Plan Critical Care: No
[2022-11-21] MEDS: AZITHROMYCIN IV 500 MG in NA CHLORIDE 0.9% 250 ML IVPB SCH (17:25)
--- NOTE | 2022-11-21 18:25 | CON ---
Date of Consultation: 11/21/2022 Reason For Consultation: Shortness of breath and possible heart failure. History Of Present Illness: A 72-year-old male with history of hepatitis C, coronary artery disease, status post CABG, diabetes, COPD, hypertension, presented with cough, shortness of breath, and low-g rade fever. Denies having any lower extremity edema or orthopnea. He is generally feeling very weak and fatigued. Past Medical History: As outlined above in the HPI. Medications: Refer to reconciliation sheet for detailed list. Allergies: NO KNOWN DRUG ALLERGIES. Family History: No premature coronary artery disease or cancer. Social History: Ex-smoker. Does not drink or use any drugs. Review of Systems: All systems reviewed and they were negative except what mentioned in HPI. Investigations: Vital Signs: Show temperature is 99.9, heart rate 79, breathing at 17, blood pressu re 107/50, saturating 100%. General: Pleasant elderly male, in no distress. Head and Neck: Pupils are equal, reactive to light. Intact eye movements. No JVD. No cervical lym phadenopathy. Neck is supple. Thyroid is not enlarged. Lungs: Decreased breathing sounds with rhonchi bilaterally. No accessory muscle use or muscle retra ction. Heart: Irregularly irregular. No extra sounds. Abdomen: Soft, nontender. Bowel sounds positive. No organomegaly. No masses or hernia. No rigidi ty or rebound. Extremities: No clubbing or cyanosis. Intact pulses. Skin: No rash. Neurologic: Alert, awake, oriented x3. No acute focal deficits appreciated. Investigations: BUN 47, creatinine is 1.77, and his troponin is negative. The CT scan of the chest showed pneumonia. Assessment And Recommendations: 1.Shortness of breath. This is due to pneumonia. There are no signs of fluid overload. There is n o need for IV diuretics, just monitor clinically, and continue IV antibiotics. 2.Elevated NT-proBNP, probably has chronic diastolic heart failure; however, at this point, he does not need IV diuretics. Monitor clinically. Resume his home medications. 3.Atrial fibrillation. Rate is controlled on Xarelto to continue. No acute cardiac issue is presen t during this hospital presentation. Cardiology will sign off. SR/MODL Voice ID: [id number] Report ID: [id number]
[2022-11-21] MEDS ORDERED: RIVAROXABAN 10 MG TABLET PO ONE (21:57)
[2022-11-21] MEDS: TRAZODONE 50 MG TABLET PO SCH (22:41)
[2022-11-22] MEDS: ALBUTEROL 2.5 MG/3 ML NEB SOL NEB SCH ×4 (01:08→20:00)
[2022-11-22] MEDS: IPRATROPIUM BROM 0.5MG/2.5ML NEB SCH ×4 (01:08→20:00)
[2022-11-22] MEDS: CEFEPIME 2 GM in NA CHLORIDE 0.9% 100 ML IV SCH ×2 (02:39→15:23)
[2022-11-22 03:15] LABS: Absolute Lymphocytes (CBC) 1.1 K/uL (0.7-4.9); Hematocrit 33.2 % (39.6-49.0); MCV 88.2 fL (80-100); MPV 7.8 fL (7.6-11.3); RBC Red Blood Cell Count 3.76 M/uL (4.33-5.43)
[2022-11-22 03:42] LABS: Magnesium 2.2 mg/dL (1.6-2.4); Phosphorus 2.6 mg/dL (2.5-4.9); Potassium 4.1 mEq/L (3.5-5.1)
--- NOTE | 2022-11-22 07:09 | P.PN ---
Date of Service: 11/22/22 Subjective: feeling better breathing improved no worsening of symptoms +dyspnea on exertion one episode of loose stool today ROS: 10 point ROS as noted above, otherwise negative Physical Exam: GEN: Alert, oriented, NAD HEENT: Normal conjunctiva, sclera anicteric CV: Regular rate and rhythm, no edema Pulm: Nonlabored respirations on room air at rest, diminished at bases b/l with mild crackles ABD: Soft, nontender, nondistended Neuro: Normal speech, normal affect vitals reviewed Problem List: Pneumonia, bilateral; POA Acute on chronic COPD exacerbation chronic diastolic CHF; acute chf ruled out VIANNEY Hyperlipidemia Hypertension NIDDM2 with neuropathy Anxiety disorder\PTSD History of hep C NORRIS Atrial fibrillation, chronic History of CAD\CABG Anemia of chronic disease Pneumonia Acute on chronic COPD exacerbation CT chest(11/21): Moderate left and mild to moderate right tree-in-bud opacities probably indicating an atypical infection Blood cultures pending Continue empiric antibiotics Pulmonology consulted PRN nebs with albuterol\Atrovent and O2 therapy. improving possible dc tomorrow Acute on chronic diastolic CHF exacerbation. Cardiology consulted Continue Lasix VIANNEY Likely prerenal secondary to poor p.o. intake. Nephrology consulted. Monitor renal function NIDDM2 with neuropathy SSI, Continue gabapentin Hyperlipidemia Continue statin Hypertension Continue home medications as appropriate Anxiety disorder\PTSD Continue home medications. History of hep C Status unknown. Continue supportive care. NORRIS Continue supportive care. Atrial fibrillation, chronic Continue Xarelto. History of CAD\CABG Continue aspirin, statin and Xarelto. Anemia of chronic disease. H&H stable. VTE: Xarelto Code: Full Dispo: Home1-2 days
[2022-11-22] MEDS: INSULIN -REGULAR HUMAN 50 UNIT/0.5 ML ML SQ SCH ×4 (07:30→20:43)
[2022-11-22] MEDS ORDERED: PNEUMOCOCCAL VACCINE 0.5 ML IMVAC ONE ×2 (08:00→21:00)
[2022-11-22] MEDS ORDERED: AZITHROMYCIN 500 MG INJ IVPB ONE (08:23)
[2022-11-22] MEDS ORDERED: NA CHLORIDE 0.9% 250 ML ONE (08:27)
[2022-11-22] MEDS: AZITHROMYCIN IV 500 MG in NA CHLORIDE 0.9% 250 ML IVPB SCH (08:37)
[2022-11-22] MEDS: ASPIRIN 81 MG CHEWABLE TABLET PO SCH (08:38)
[2022-11-22] MEDS: METOPROLOL XL 50 MG TAB PO SCH (08:38)
[2022-11-22] MEDS: FOLIC ACID 1 MG TABLET PO SCH (08:38)
[2022-11-22] MEDS: MAGNESIUM OXIDE 400 MG TAB PO SCH ×2 (08:39→20:43)
[2022-11-22] MEDS: POTASSIUM CL SA 10 MEQ TAB PO SCH (08:40)
[2022-11-22] MEDS: THIAMINE HCL 100 MG TABLET PO SCH (08:41)
[2022-11-22] MEDS: ATORVASTATIN 40 MG TAB PO SCH (08:47)
[2022-11-22] MEDS ORDERED: ENOXAPARIN 40 MG/0.4 ML SQ SCH (09:00)
[2022-11-22] MEDS ORDERED: SPIRONOLACTONE 25 MG TABLET PO SCH (09:00)
[2022-11-22] MEDS ORDERED: FUROSEMIDE 40 MG TABLET PO SCH (09:00)
--- NOTE | 2022-11-22 12:34 | P.CNS ---
Date of Consult: 11/22/22 Reason for Consult: Pneumonia Chief Complaint: Shortness of breath and cough History of Present Illness: Patient is 72 years of age acutely became sick developed shaking fevers productive cough former smoker 1 pack a day admitted to the hospital with bilateral pneumonia he is doing well hemodynamically stable condition satisfactory prior history of COPD follows up at the [place] Allergies No Known Allergies Allergy (Verified 01/13/21 22:24) Home Medications: Atorvastatin Calcium [Lipitor] 40 mg PO DAILY 08/28/20 Rivaroxaban [Xarelto*] 20 mg PO BEDTIME 08/28/20 Spironolactone [Aldactone] 25 mg PO DAILY #30 tablet 09/23/20 Folic Acid 1 mg PO DAILY 05/11/22 Furosemide [Lasix*] 60 mg PO DAILY 05/11/22 Magnesium Oxide 420 mg PO BID 05/11/22 Metoprolol Succinate [Toprol Xl*] 50 mg PO DAILY 05/11/22 Thiamine HCl [Vitamin B-1*] 100 mg PO DAILY #30 tab 07/13/22 Gabapentin [Neurontin*] 2 cap PO BEDTIME 11/21/22 Potassium Chloride [Klor-Con 10] 20 meq PO DAILY 11/21/22 Trazodone HCl 100 mg PO BEDTIME 11/21/22 glipiZIDE [Glipizide] 10 mg PO DAILY 11/21/22 Amox/Clavulanate [Augmentin 875-125 Tab] 875 mg PO BID 10 Days #20 tab 11/23/22 Doxycycline Monohydrate 100 mg PO BID 10 Days #20 tab 11/23/22 - Past Medical/Surgical History Diabetic: Yes -: Hypertension -: Diabetes mellitus type 2 -: Posttraumatic stress disorder -: Anxiety -: Hepatitis-C -: Hyperlipidemia -: CAD, stent placement x2, atrial fibrillation, chronic diastolic CHF -: Obstructive sleep apnea -: Obesity -: Diabetic neuropathy -: History pancreatitis -: COPD, tobacco abuse -: 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 - Family History Father Medical History: Other (see notes) Notes: CHF Mother Medical History: Cancer Notes: breast cancer Sister Medical History: Cancer Notes: colon cancer Brother Medical History: Cancer Notes: throat cancer - Social History Smoking Status: Unknown if ever smoked Alcohol use: No CD- Drugs: No Caffeine use: Yes Place of Residence: Home Review of Systems 10-point ROS is otherwise unremarkable General: Weakness Respiratory: Cough, Shortness of Breath Physical Examination Temp Pulse Resp BP Pulse Ox 97.9 F 72 18 119/58 L 96 11/22/22 08:00 11/22/22 08:40 11/22/22 08:00 11/22/22 08:40 11/22/22 08:00 General: Alert, Oriented x3 Respiratory: Clear to auscultation bilaterally, Crackles/rales Gastrointestinal: Normal bowel sounds, Soft and benign - Problems (1) Pneumonia Status: Acute Plan: Patient is 72 years of age admitted with acute onset of fever chills productive cough x-ray shows bilateral patchy changes consistent with pneumonia renal function is slightly worse continue to monitor continue with IV fluid Labs reviewed white count is elevated plan for discharge tomorrow on Augmentin and doxycycline and will need a follow-up chest x-ray in about a month to make sure that her opacities have resolved he can either follow-up with me or at the [facility] T scan chest x-ray reviewed DC IV diuretics right now changed to IV fluids renal function Qualifiers: Pneumonia type: due to unspecified organism
[2022-11-22] MEDS: NA CHLORIDE 0.9% 1,000 ML IV SCH (15:23)
[2022-11-22] MEDS ORDERED: RIVAROXABAN 10 MG TABLET PO SCH (17:00)
[2022-11-22] MEDS ORDERED: RIVAROXABAN 15 MG TABLET PO SCH (17:00)
[2022-11-22 18:42] VITALS: BMI 35.3
[2022-11-22] MEDS ORDERED: GABAPENTIN 400 MG CAP PO SCH (21:00)
[2022-11-22] MEDS: TRAZODONE 50 MG TABLET PO SCH (21:15)
[2022-11-23] MEDS: ALBUTEROL 2.5 MG/3 ML NEB SOL NEB SCH ×2 (02:00→08:00)
[2022-11-23] MEDS: IPRATROPIUM BROM 0.5MG/2.5ML NEB SCH ×2 (02:00→08:00)
[2022-11-23] MEDS ORDERED: CEFEPIME 1 GM/VIAL ONE ×2 (02:09→02:10)
[2022-11-23] MEDS ORDERED: NA CHLORIDE 0.9% 100 ML ONE (02:12)
[2022-11-23] MEDS: CEFEPIME 2 GM in NA CHLORIDE 0.9% 100 ML IV SCH (02:13)
[2022-11-23] MEDS: NA CHLORIDE 0.9% 1,000 ML IV SCH ×2 (02:20→05:23)
--- NOTE | 2022-11-23 03:44 | CON ---
Date of Consultation: 11/22/2022 Chief Complaint: Acute kidney injury. History Of Present Illness: The patient is a 72-year-old man with history of anxiety disorder, hepat itis C, PTSD, hyperlipidemia, coronary artery disease, CABG, obstructive sleep apnea, obesity, COPD, diabetes mellitus with nephropathy, neuropathy, hypertension. He came to the hospital with complaint s of cough, shortness of breath. He had fever. He started having cough episode the day prior to adm ission and he denied wheezing or hemoptysis. He had chills, fever, and severe fatigue, weakness, and generalized malaise. The patient denies dysuria and hematuria. Denies kidney stones or kidney coli c. Past Medical History: Diabetes mellitus, hypertension, posttraumatic stress disorder, anxiety, hepat itis C, hyperlipidemia, coronary artery disease, status post PTCA, atrial fibrillation, chronic diast olic congestive heart failure, obstructive sleep apnea, obesity, diabetic neuropathy, history of panc reatitis, tumor removal from his fingers, angioplasty in 1989, cardiac stent placements in 2013, pace maker. Family History: Father, congestive heart failure. Mother, breast cancer. Sister, colon cancer. Br other, throat cancer. Social History: The patient denies alcohol, illicit drugs. He is a former smoker. Physical Examination: Vital Signs: Patient is awake, alert, follows commands. Eyes: Anicteric sclerae. EOMI. Ears, Nose, Mouth, and Throat: Oral mucosa moist. No pallor. Neck: Supple. No bruits. Lungs: Few rhonchi. Heart: S1 and S2. Abdomen: Soft, benign, obese, nontender. No rebound. No guarding. No flank tenderness. Extremities: No edema. No clubbing. No cyanosis. Diagnostic Data: WBC 10.2, hemoglobin 12.1, hematocrit 36.8, platelet count 164,000. Sodium 137, po tassium 4.5, BUN of 47, creatinine 1.77, glucose 179, magnesium 2.1. Impression And Plan: The patient was found to have elevated creatinine level and the patient is admi tted with pneumonia and sepsis. On arrival to the hospital, creatinine level was 1.77, previous base line was 1.11. Patient has history of acute kidney injury, and back in July, creatinine level was u p to 2.19, subsequently improved to 1.17. The patient has history of acute kidney injury at least on 2 occasions this year, creatinine level was up to 2.34. Patient presented to the hospital with pneu monia and Pulmonary consultation is obtained. I recommend to continue hydration in view of sepsis an d acute kidney injury. Renal function is gradually improving, likely patient has prerenal azotemia a nd nonoliguric ATN. Chest x-ray showed bilateral patchy changes consistent with pneumonia. The derik ent is on Augmentin and doxycycline. Continue to adjust medication for the renal function. Avoid ne phrotoxic medication. I recommend to continue IV fluids. The patient is undergoing cardiac workup w [facility] Cardiology. He has history of coronary artery disease and troponin was checked. On arrival to [facility], he received Lasix because of elevated BNP up to 4000, although patient at this point, do es not have pulmonary edema and I agree with mild hydration. Recommend to check for renal ultrasound for any possible hydronephrosis. CT scan of the chest was done on November 21 when the patient came to emergency room and CT scan was done without contrast, [id number] right opacity probably indicat ing atypical infection. There is no evidence of pulmonary edema. Patient has abnormal renal function test and history of acute kidney injury. Plan: Check urinalysis to rule out active urinary sediment. On the arrival to the hospital, urinaly sis did not show hematuria or leukocyturia. Continue to monitor. HILDA/SAULOL Voice ID: [id number] Report ID: [id number]
[2022-11-23 04:48] VITALS: BP 141/61; TEMP 98.3
[2022-11-23 05:43] LABS: Absolute Lymphocytes (CBC) 1.3 K/uL (0.7-4.9); Hematocrit 33.5 % (39.6-49.0); Lymphocytes % 14.7 % (15.3-44.8); MCV 87.5 fL (80-100); MPV 7.9 fL (7.6-11.3); RBC Red Blood Cell Count 3.82 M/uL (4.33-5.43)
[2022-11-23 06:03] LABS: Magnesium 2.3 mg/dL (1.6-2.4); Potassium 3.9 mEq/L (3.5-5.1)
[2022-11-23] MEDS: INSULIN -REGULAR HUMAN 50 UNIT/0.5 ML ML SQ SCH (07:30)
--- NOTE | 2022-11-23 08:27 | P.DS ---
Admission Date: 11/21/22 Discharge Date: 11/23/22 Disposition: ROUTINE DISCHARGE Discharge Condition: GOOD Reason for Admission: Shortness of breath and cough Consultations: Cardiology - Dr. Conte Nephrology - Dr. Larson-Kalee Pulmonology - Dr. Fong Brief History of Present Illness: 72yo M, PMH: PTSD, anxiety disorder, hep C, hyperlipidemia, CAD, CABG, NORRIS, obesity, COPD, DM2 with neuropathy, hypertension Patient presents with complaint of cough and shortness of breath. Patient reported he started having coughing episodes yesterday which became worse over time. Patient reported that when he woke up this morning patient started having worsening shortness of breath. Patient reported associated signs and symptoms of chills, fever, fatigue, weakness and generalized malaise. Patient denies any other signs and symptoms. Symptoms are aggravated or relieved by nothing. Hospital Course: Problem List: Pneumonia, bilateral; POA Acute on chronic COPD exacerbation chronic diastolic CHF; acute chf ruled out VIANNEY Hyperlipidemia Hypertension NIDDM2 with neuropathy Anxiety disorder\PTSD History of hep C NORRIS Atrial fibrillation, chronic History of CAD\CABG Anemia of chronic disease Patient presented with fever, cough, Shortness of breath. He was found to have Pneumonia. CT chest indicates Moderate left and mild-moderate right tree-in-bud opacities probably indicating an atypical infection. Pulmonology was consulted. Patient was treated with empiric cefepime/vanc along with IVF and had improvement of his symptoms. He remained stable on room air throughout his hospitalization. Patient is to complete 10 day course of augmentin and doxycycline on discharge. Patient will also need to get a repeat Chest xray in 1 month to ensure resolution of opacities. Recommend following up with PCP next week for repeat bloodwork, and to check renal function. During his hospitalization, Nephrology was consulted due to VIANNEY and showed improvement with IVF. Recommend holding lasix/spironolactone for 2 days new / change in prescriptions: antibiotics - augmentin/doxycycline for 10 days Recommend holding lasix/spironolactone for 2 days and then you can gradually restart (start with 20mg and gradually increase back to usual dose over a few days.) Continue other home medications as previously prescribed Follow up: PCP 3-5 days Nephrology within a few weeks Pulmonology - Dr. Fong within 1-2 weeks Physical Exam: GEN: Alert, oriented, NAD HEENT: Normal conjunctiva, sclera anicteric CV: Regular rate and rhythm, no edema Pulm: Nonlabored respirations on room air at rest ABD: Soft, nontender, nondistended MSK: No joint tenderness Integumentary: no rashes, no skin breakdown Neuro: Normal speech, normal affect Vital Signs/Physical Exam: Temp Pulse Resp BP Pulse Ox 98.3 F 70 17 141/61 H 96 11/23/22 04:00 11/23/22 04:00 11/23/22 04:00 11/23/22 04:00 11/23/22 04:00 Laboratory Data at Discharge: WBC 9.00 thou/uL (4.3-10.9) 11/23/22 05:10 Hgb 11.1 g/dL (13.6-17.9) L 11/23/22 05:10 Hct 33.5 % (39.6-49.0) L 11/23/22 05:10 Plt Count 154 thou/uL (152-406) 11/23/22 05:10 PT 16.3 SECONDS (9.5-12.5) H 11/21/22 10:15 INR 1.48 11/21/22 10:15 APTT 36.0 SECONDS (24.3-36.9) 11/21/22 10:15 Sodium 137 mEq/L (136-145) 11/23/22 05:10 Potassium 3.9 mEq/L (3.5-5.1) 11/23/22 05:10 BUN 38 mg/dL (7-18) H 11/23/22 05:10 Creatinine 1.35 mg/dL (0.70-1.30) H 11/23/22 05:10 Glucose 131 mg/dL (74-106) H 11/23/22 05:10 Phosphorus 2.6 mg/dL (2.5-4.9) 11/22/22 02:32 Magnesium 2.3 mg/dL (1.6-2.4) 11/23/22 05:10 Total Bilirubin 0.3 mg/dL (0.2-1.0) 11/21/22 10:15 AST 10 U/L (15-37) L 11/21/22 10:15 ALT 19 U/L (16-61) 11/21/22 10:15 Alkaline Phosphatase 97 U/L (45-117) 11/21/22 10:15 Home Medications: Atorvastatin Calcium [Lipitor] 40 mg PO DAILY 08/28/20 Rivaroxaban [Xarelto*] 20 mg PO BEDTIME 08/28/20 Spironolactone [Aldactone] 25 mg PO DAILY #30 tablet 09/23/20 Folic Acid 1 mg PO DAILY 05/11/22 Furosemide [Lasix*] 60 mg PO DAILY 05/11/22 Magnesium Oxide 420 mg PO BID 05/11/22 Metoprolol Succinate [Toprol Xl*] 50 mg PO DAILY 05/11/22 Thiamine HCl [Vitamin B-1*] 100 mg PO DAILY #30 tab 07/13/22 Gabapentin [Neurontin*] 2 cap PO BEDTIME 11/21/22 Potassium Chloride [Klor-Con 10] 20 meq PO DAILY 11/21/22 Trazodone HCl 100 mg PO BEDTIME 11/21/22 glipiZIDE [Glipizide] 10 mg PO DAILY 11/21/22 Amox/Clavulanate [Augmentin 875-125 Tab] 875 mg PO BID 10 Days #20 tab 11/23/22 Doxycycline Monohydrate 100 mg PO BID 10 Days #20 tab 11/23/22 New Medications: Amox/Clavulanate [Augmentin 875-125 Tab] 875 mg PO BID 10 Days #20 tab Doxycycline Monohydrate 100 mg PO BID 10 Days #20 tab Physician Discharge Instructions: Patient presented with fever, cough, Shortness of breath. He was found to have Pneumonia. CT chest indicates Moderate left and mild-moderate right tree-in-bud opacities probably indicating an atypical infection. Pulmonology was consulted. Patient was treated with empiric cefepime/vanc along with IVF and had improvement of his symptoms. He remained stable on room air throughout his hospitalization. Patient is to complete 10 day course of augmentin and doxycycline on discharge. Patient will also need to get a repeat Chest xray in 1 month to ensure resolution of opacities. Recommend following up with PCP next week for repeat bloodwork, and to check renal function. During his hospitalization, Nephrology was consulted due to VIANNEY and showed improvement with IVF. Recommend holding lasix/spironolactone for 2 days new / change in prescriptions: antibiotics - augmentin/doxycycline for 10 days Recommend holding lasix/spironolactone for 2 days and then you can gradually restart (start with 20mg and gradually increase back to usual dose over a few days.) Continue other home medications as previously prescribed Follow up: PCP 3-5 days Nephrology within a few weeks Pulmonology - Dr. Fong within 1-2 weeks Followup: NONE,NONE [Primary Care Provider] - Time spent managing pt's care (in minutes): 45
--- NOTE | 2022-11-23 08:28 | P.PN ---
Subjective Date of Service: 11/23/22 Chief Complaint: Bilateral pneumonia Subjective: Improving (Patient is doing better his breathing cough congestion have all improved) Review of Systems General: Weakness Respiratory: Cough, Shortness of Breath Physical Examination - Vital Signs Temperature: 98.3 F Blood Pressure: 141/61 Pulse: 70 Respirations: 17 Pulse Ox (%): 96 - Physical Exam General: Alert, Oriented x3 HEENT: Atraumatic Respiratory: Diminished, Expiratory wheezes Cardiovascular: No edema, Regular rate/rhythm Assessment And Plan - Current Problems (Diagnosis) (1) Pneumonia Current Visit: Yes Status: Acute Plan: Patient is 72 years of age admitted with bilateral pneumonia he is doing much better white count is back down to normal renal function is also improved patient's cultures are negative plan to discharge home on Augmentin and doxycycline patient has chronic renal failure continue with Lasix may need to avoid [facility] Physician Review: Patient Assessed, Agree with Above Assessment and Plan
[2022-11-23] MEDS: ASPIRIN 81 MG CHEWABLE TABLET PO SCH (08:46)
[2022-11-23] MEDS: FOLIC ACID 1 MG TABLET PO SCH (08:46)
[2022-11-23] MEDS: MAGNESIUM OXIDE 400 MG TAB PO SCH (08:47)
[2022-11-23] MEDS: METOPROLOL XL 50 MG TAB PO SCH (08:47)
[2022-11-23] MEDS: ATORVASTATIN 40 MG TAB PO SCH (08:47)
[2022-11-23] MEDS: THIAMINE HCL 100 MG TABLET PO SCH (08:47)
[2022-11-23] MEDS: POTASSIUM CL SA 10 MEQ TAB PO SCH (08:47)
[2022-11-23] MEDS ORDERED: DOXYCYCLINE 100 MG CAP PO SCH (09:00)
[2022-11-23] MEDS ORDERED: AMOX/K CLAV 500 MG TAB PO SCH (09:00)
--- NOTE | 2022-11-23 09:18 | RAD REPORT ---
EXAM DESCRIPTION: US - Renal Ultrasound-Complete - 11/23/2022 12:01 am CLINICAL HISTORY: Acute renal insufficiency COMPARISON: May 2022 cat scan FINDINGS: The right kidney measures 10 cm with a normal echotexture. A 3.3 centimeter cyst The left kidney measures 10 cm with a normal echotexture. 1.7 centimeter cyst 3 centimeter calcified mass extends off of the lower pole of the left kidney. It is without obvious c hange Hydronephrosis is not seen. No gross abnormality of bladder IMPRESSION: No hydronephrosis Bilateral renal cysts 3 centimeter calcified mass left kidney the without obvious change probably benign with.
[2022-11-23 09:37] VITALS: O2SAT 94
== END 2022-11-23 10:55 | disposition home or self-care (01) | DRG 871 ==
LOC: ER 09:45 → ERHOLD 13:52 → 2ND 14:41
PROVIDERS: ADMIT Hospitalist; ATTEND Hospitalist
DX: A41.9 Sepsis, unspecified organism (principal); J18.9 Pneumonia, unspecified organism; N17.0 Acute kidney failure with tubular necrosis; E87.20 Acidosis, unspecified; J44.0 Chronic obstructive pulmonary disease with (acute) lower respiratory infection; I50.32 Chronic diastolic (congestive) heart failure; J44.1 Chronic obstructive pulmonary disease with (acute) exacerbation; R65.20 Severe sepsis without septic shock; E11.9 Type 2 diabetes mellitus without complications; F43.10 Post-traumatic stress disorder, unspecified; I48.91 Unspecified atrial fibrillation; I11.0 Hypertensive heart disease with heart failure; F41.9 Anxiety disorder, unspecified; E78.5 Hyperlipidemia, unspecified; E66.09 Other obesity due to excess calories; D63.8 Anemia in other chronic diseases classified elsewhere; G47.33 Obstructive sleep apnea (adult) (pediatric); E66.9 Obesity, unspecified; E11.40 Type 2 diabetes mellitus with diabetic neuropathy, unspecified; I25.10 Atherosclerotic heart disease of native coronary artery without angina pectoris; Z95.0 Presence of cardiac pacemaker; Z95.5 Presence of coronary angioplasty implant and graft; Z95.1 Presence of aortocoronary bypass graft; Z79.01 Long term (current) use of anticoagulants; Z68.33 Body mass index [BMI] 33.0-33.9, adult; Z79.899 Other long term (current) drug therapy; Z87.891 Personal history of nicotine dependence; Z79.84 Long term (current) use of oral hypoglycemic drugs
CPT/HCPCS: 36415; 71045; 71250; 76770; 80048; 80053; 80076; 81003; 82947; 83605; 83735; 83880; 84100; 84484; 85025; 85610; 85730; 87040; 94640; 96365; 96366; 96367; 99285; J0692; J7030; J7050; J7613; J7644

== ENCOUNTER 2024-06-08 23:13 | Inpatient (IN) | payer OTHER ==
[2024-06-09 01:04] LABS: Absolute Eosinophils 0.2 K/uL (0-0.5); Eosinophils % 2.2 % (0-4.4); Hematocrit 38.3 % (39.6-49.0); Hemoglobin 12.5 g/dL (13.6-17.9); MCV 84.2 fL (80-100); RBC Red Blood Cell Count 4.55 M/uL (4.33-5.43)
[2024-06-09 01:22] LABS: Absolute Basophils 0.1 K/uL (0-0.5); Absolute Monocytes 0.8 K/uL (0.1-1.3); Basophils % 0.7 % (0-1.3); Lymphocytes % 9.6 % (15.3-44.8); MCH 27.5 pg (27.0-35.0); MCHC 32.7 g/dL (32.0-36.0); MPV 8.2 fL (7.6-11.3); Monocytes % 7.6 % (3.3-12.3); Neutrophils % 79.9 % (41.7-73.7); Platelets 183 thou/uL (152-406)
[2024-06-09 01:25] LABS: PT Prothrombin Time 15.3 SECONDS (9.4-12.5); Protime INR 1.46
[2024-06-09 01:50] LABS: Anion Gap 8.8 mEq/L (5.0-15.0); Troponin High Sensitivity 21.5 pg/mL (<58.9)
[2024-06-09 01:51] LABS: Magnesium 2.2 mg/dL (1.6-2.4); Potassium 3.8 mEq/L (3.5-5.1)
--- NOTE | 2024-06-09 01:57 | ER ---
Nurse's Notes [facility] Name: Ludwin Hsu Age: 73 yrs Sex: Male : 1950 Arrival Date: 06/08/2024 Time: 23:13 Bed 13 Private MD: Diagnosis: Unspecified combined systolic (congestive) and diastolic (congestive) heart failure;Chest pain, unspecified Presentation: 06/08 23:27 Chief complaint: EMS states: he was having SOB, the albuterol nebs he take doesn't help rg5 \T\ still having difficulty breathing. Pt also complaint swelling of bot legs. 23:27 Coronavirus screen: Vaccine status: Patient reports receiving the 1st dose of the Covid rg5 vaccine. Client denies travel out of the [place] in the last 14 days. Ebola Screen: Patient negative for fever greater than or equal to 101.5 degrees Fahrenheit, and additional compatible Ebola Virus Disease symptoms Patient denies exposure to infectious person. Patient denies travel to an Ebola-affected area in the 21 days before illness onset. Initial Sepsis Screen: Does the patient meet any 2 criteria? No. Patient's initial sepsis screen is negative. Does the patient have a suspected source of infection? No. Patient's initial sepsis screen is negative. Risk Assessment: Do you want to hurt yourself or someone else? Patient reports no desire to harm self or others. Onset of symptoms was June 08, 2024. Care prior to arrival: Medication(s) given: ASA, x 4, Oxygen administered. via nasal cannula. 23:27 Method Of Arrival: EMS: [facility] rg5 23:27 Acuity: NGUYEN 3 rg5 Triage Assessment: 23:41 General: Appears uncomfortable, Behavior is calm, cooperative, appropriate for age. rg5 Pain: Complains of pain in right leg and left leg. EENT: No deficits noted. Neuro: Level of Consciousness is awake, alert, obeys commands, Oriented to person, place, time. Cardiovascular: Patient's skin is warm and dry. Respiratory: Reports shortness of breath at rest Airway is patent Trachea midline Respiratory effort is even, unlabored, Respiratory pattern is regular, symmetrical, Breath sounds are clear. GI: Abdomen is round non-distended. : No signs and/or symptoms were reported regarding the genitourinary system. Derm: Skin is intact, Skin is dry, Skin is normal, Skin temperature is warm. Musculoskeletal: Circulation, motion, and sensation intact. Range of motion:. Historical: - Allergies: 23:41 NKA; rg5 - Home Meds: 23:41 furosemide 60 mg Oral tab once [Active]; trazodone 300 mg Oral tablet every day at rg5 bedtime [Active]; losartan 50 mg Oral tablet once [Active]; aspirin 81 mg Oral capsule once [Active]; Eliquis oral [Active]; empagliflozin 25 mg Oral tablet 0.5 tab once [Active]; aripiprazole oral [Active]; - PMHx: 23:41 Atrial fibrillation; CHF; COPD; diabetes mellitus; Hypertensive disorder; rg5 - PSHx: 23:41 Coronary artery bypass graft; pacemaker; rg5 - Immunization history:: Adult Immunizations up to date. - Infectious Disease History:: Denies. - Social history:: Smoking status: Patient/guardian denies using tobacco, Stopped _ months ago 3. Screenin:40 [facility] ED Fall Risk Assessment (Adult) History of falling in the last 3 months, rg5 including since admission No falls in past 3 months (0 pts) Confusion or Disorientation No (0 pts) Intoxicated or Sedated No (0 pts) Impaired Gait Yes (1 pt) Mobility Assist Device Used Yes (1 pt) Altered Elimination Yes (1 pt) Score/Fall Risk Level 3 or more points = High Risk Oriented to surroundings, Maintained a safe environment, Educated pt \T\ family on fall prevention, incl call for assistance when getting out of bed, Hourly rounding (assess needs \T\ fall precautionary measures) done, Used ambulatory aids as needed (educated on \T\ assisted with). Abuse screen: Denies threats or abuse. Nutritional screening: No deficits noted. Tuberculosis screening: No symptoms or risk factors identified. Assessment: 23:47 Reassessment: see triage assesment. rg5 06/09 00:45 General: Appears in no apparent distress. comfortable, Behavior is calm, cooperative, rg5 appropriate for age. Respiratory: Reports shortness of breath at rest. 01:41 Reassessment: No changes from previously documented assessment. Patient and/or family rg5 updated on plan of care and expected duration. Pain level reassessed. Vital Signs: 06/08 23:41 BP 141 / 48; Pulse 64; Resp 19; Temp 98.3; Pulse Ox 100% on 4 lpm NC; Weight 127.01 kg; rg5 Height 6 ft. 0 in. ; Pain 5/10; 06/09 00:44 BP 124 / 54; Pulse 60; Resp 18; Pulse Ox 100% on 4 lpm NC; Pain 0/10; rg5 01:40 BP 121 / 62; Pulse 62; Resp 18; Pulse Ox 100% on R/A; rg5 02:00 BP 125 / 69; Pulse 60; Resp 18; Pulse Ox 100% on 3 lpm NC; Pain 0/10; rg5 03:16 BP 116 / 55; Pulse 60; Resp 18; Pulse Ox 100% on 2 lpm NC; Pain 0/10; rg5 06/08 23:41 Body Mass Index 37.97 (127.01 kg, 182.88 cm) rg5 06/08 23:41 Pain Scale: Adult rg5 06/09 00:44 Pain Scale: Adult rg5 02:00 Pain Scale: Adult rg5 03:16 Pain Scale: Adult rg5 ED Course: 06/08 23:27 Patient arrived in ED. rv1 23:30 Anali Christopher FNP-C is PSYCHIATRICP. kb 23:30 Nicolás Morgan MD is Attending Physician. kb 23:37 Pedro John, STEPHEN is Primary Nurse. rg5 23:40 Patient has correct armband on for positive identification. Bed in low position. Call rg5 light in reach. Side rails up X2. Client placed on continuous cardiac and pulse oximetry monitoring. NIBP monitoring applied. digital marketing coordinator on. Pulse ox on. Door closed. Noise minimized. Verbal reassurance given. Cleaned of incontinence. 23:40 No provider procedures requiring assistance completed. Oxygen administration via nasal rg5 cannula \T\ 4L/min. 23:41 Triage completed. rg5 23:41 Arm band placed on right wrist. rg5 06/09 00:02 XRAY Chest (1 view) In Process Unspecified. EDMS 00:49 Inserted saline lock: 22 gauge in right antecubital area, using aseptic technique. oe Blood collected. Flushed with 10 mL NS. 00:50 Basic Metabolic Panel Sent. oe 00:50 CBC with Diff Sent. oe 00:50 Magnesium Sent. oe 00:50 NT PRO-BNP Sent. oe 00:50 PT-INR Sent. oe 00:50 Troponin HS Sent. oe 01:57 Prince Serna MD is Hospitalizing Provider. kb 03:18 Provided Education on: needs for admit. rg5 03:18 Patient admitted, IV remains in place. rg5 07:20 Primary Nurse role handed off by Pedro John RN bd 12:05 Report received from STEPHEN Nava. ko1 12:13 Brandy Quinn, RN is Primary Nurse. ko1 Administered Medications: 02:20 Drug: Furosemide IVP 20 mg IVP once; give over 2 minutes Route: IVP; Site: right rg5 antecubital; 02:30 Follow up: Response: No adverse reaction rg5 02:30 Drug: Furosemide IVP 20 mg IVP once; give over 2 minutes Route: IVP; Site: right rg5 antecubital; 03:35 Follow up: Response: No adverse reaction rg5 Medication: 06/08 23:40 VIS not applicable for this client. rg5 Outcome: 06/09 01:57 Decision to Hospitalize by Provider. kb 03:18 Admitted to ER Hold. [facility] see [facility] for further documentation. rg5 03:18 Condition: stable 03:18 Instructed on the need for admit, 17:01 Patient left the ED. ll1 Signatures: Dispatcher [employer] EDMS Anali Christopher, HEAD UP OPERATOR HELPER-C HEAD UP OPERATOR HELPER-Ckb [place] oe Lewis, Lynsay, RN RN ll1 Brandy Quinn, RN RN koDeneen Mccord [facility] Pedor John, STEPHEN MITCHELL rg5
--- NOTE | 2024-06-09 01:58 | EDPHYS ---
Physician Documentation [facility] Name: Ludwin Hsu Age: 73 yrs Sex: Male : 1950 Arrival Date: 06/08/2024 Time: 23:13 Bed 13 Private MD: ED Physician Nicolás Morgan HPI: 06/09 00:26 This 73 yrs old Male presents to ER via EMS with complaints of Shortness Of Breath. 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 States the chest pressure improved after EMS put him on oxygen. . Historical: - Allergies: 06/08 23:41 NKA; rg5 - Home Meds: 23:41 furosemide 60 mg Oral tab once [Active]; trazodone 300 mg Oral tablet every day at rg5 bedtime [Active]; losartan 50 mg Oral tablet once [Active]; aspirin 81 mg Oral capsule once [Active]; Eliquis oral [Active]; empagliflozin 25 mg Oral tablet 0.5 tab once [Active]; aripiprazole oral [Active]; - PMHx: 23:41 Atrial fibrillation; CHF; COPD; diabetes mellitus; Hypertensive disorder; rg5 - PSHx: 23:41 Coronary artery bypass graft; pacemaker; rg5 - Immunization history:: Adult Immunizations up to date. - Infectious Disease History:: Denies. - Social history:: Smoking status: Patient/guardian denies using tobacco, Stopped _ months ago 3. ROS: 06/09 00:26 Constitutional: As per HPI kb Exam: 00:26 Constitutional: This is a well developed, well nourished patient who is awake, alert, kb and in no acute distress. Head/Face: Normocephalic, atraumatic. ENT: Moist Mucous membranes Cardiovascular: Regular rate Respiratory: Respirations even and unlabored. No increased work of breathing. Talking in full sentences Skin: Warm, dry with normal turgor. Normal color. MS/ Extremity: Pulses equal, no cyanosis. Neurovascular intact. Full, normal range of motion. Neuro: Awake and alert, GCS 15, oriented to person, place, time, and situation. 00:26 Cardiovascular: Edema: pedal edema, 00:47 ECG was reviewed by the Attending Physician. kb Vital Signs: 02/03 23:41 BP 141 / 48; Pulse 64; Resp 19; Temp 98.3; Pulse Ox 100% on 4 lpm NC; Weight 127.01 kg; rg5 Height 6 ft. 0 in. ; Pain 5/10; 06/09 00:44 BP 124 / 54; Pulse 60; Resp 18; Pulse Ox 100% on 4 lpm NC; Pain 0/10; rg5 01:40 BP 121 / 62; Pulse 62; Resp 18; Pulse Ox 100% on R/A; 5 02:00 BP 125 / 69; Pulse 60; Resp 18; Pulse Ox 100% on 3 lpm NC; Pain 0/10; rg5 03:16 BP 116 / 55; Pulse 60; Resp 18; Pulse Ox 100% on 2 lpm NC; Pain 0/10; rg5 06/08 23:41 Body Mass Index 37.97 (127.01 kg, 182.88 cm) [facility] 06/08 23:41 Pain Scale: Adult [facility] 06/09 00:44 Pain Scale: Adult [facility] 02:00 Pain Scale: Adult rg5 03:16 Pain Scale: Adult rg5 MDM: 06/08 23:30 Medical Screening Exam initiated 06/09 00:26 Data reviewed: vital signs, nurses notes. 01:57 Differential diagnosis: CHF exacerbation, Chronic Obstructive Pulmonary Disease kb Myocardial Infarction. Consideration of Admission/Observation Patient was admitted/placed on observation. Escalation of care including admission/observation considered. Management of patient was discussed with the following: Hospitalist: Dr Serna accepts pt for admission. Historians other than the Patient: EMS: [facility]. Counseling: I had a detailed discussion with the patient and/or guardian regarding the historical points, exam findings, and any diagnostic results supporting the discharge/admit diagnosis, lab results, radiology results, the need for further work-up and treatment in the hospital. 01:58 ED course: HEART score 4. kb 06/08 23:30 Order name: Basic Metabolic Panel; Complete Time: 01:52 kb 06/08 23:30 Order name: CBC with Diff; Complete Time: 01:27 kb 06/08 23:30 Order name: Magnesium; Complete Time: 01:52 kb 06/08 23:30 Order name: NT PRO-BNP; Complete Time: :52 kb 06/08 23:30 Order name: PT-INR; Complete Time: 01:27 kb 06/08 23:30 Order name: Troponin HS; Complete Time: 01:52 kb 06/09 02:55 Order name: Magnesium; Complete Time: 13:16 EDMS 06/09 02:55 Order name: NT PRO-BNP; Complete Time: 13:16 EDMS 02 02:55 Order name: Phosphorus; Complete Time: 13:16 EDMS 06/09 02:55 Order name: Basic Metabolic Panel EDMS 06/09 02:55 Order name: Basic Metabolic Panel EDMS 06/09 02:55 Order name: CBC with Automated Diff EDMS 06/09 02:55 Order name: CBC with Automated Diff EDMS 06/09 02:55 Order name: Lipid Profile EDMS 06/09 02:55 Order name: Lipid Profile EDMS 06/09 02:55 Order name: Troponin High Sensitivity; Complete Time: 13:16 EDMS 06/09 08:13 Order name: Glucose, Ancillary Testing; Complete Time: 13:16 EDMS 06/09 12:24 Order name: Glucose, Ancillary Testing; Complete Time: 13:16 EDMS 06/08 23:30 Order name: XRAY Chest (1 view); Complete Time: 13:16 kb 06/09 02:55 Order name: Echo with Doppler EDMS 06/08 23:30 Order name: EKG; Complete Time: 23:31 kb 06/08 23:30 Order name: Cardiac monitoring; Complete Time: 00:41 kb 06/08 23:30 Order name: EKG - Nurse/Tech; Complete Time: 00:41 kb 06/08 23:30 Order name: IV Saline Lock; Complete Time: 00:50 kb 06/08 23:30 Order name: Labs collected and sent; Complete Time: 00:50 kb 06/08 23:30 Order name: O2 Per Protocol; Complete Time: 00:41 kb 06/08 23:30 Order name: O2 Sat Monitoring; Complete Time: 00:41 kb EC:47 Rate is 60 beats/min. Rhythm is regular. QRS [place] is Normal. QRS interval is normal at kb 164 msec. QT interval is prolonged at 592 msec. Administered Medications: 02:20 Drug: Furosemide IVP 20 mg IVP once; give over 2 minutes Route: IVP; Site: right rg5 antecubital; 02:30 Follow up: Response: No adverse reaction rg5 02:30 Drug: Furosemide IVP 20 mg IVP once; give over 2 minutes Route: IVP; Site: right rg5 antecubital; 03:35 Follow up: Response: No adverse reaction rg5 Disposition: 02:56 Co-signature as Attending Physician, Nicolás Morgan MD I agree with the assessment sp4 and plan of care. I reviewed the patient's care provided by Advanced Practice Provider \T\ agree w/ the diagnosis \T\ care plan. I personally saw the pt \T\ performed a substantive portion of the visit, incldng all aspects of the (History/Exam/Medical Decision Making). Disposition Summary: 06/09/24 01:57 Hospitalization Ordered Notes: Hospitalization Status: Observation kb Provider: Prince pranav Serna Condition: Stable kb Problem: new kb Symptoms: are unchanged kb Bed/Room Type: Standard kb Location: Telemetry/MedSurg (observation)(06/09/24 14:51) bd Room Assignment: 223(06/09/24 14:51) bd Diagnosis - Unspecified combined systolic (congestive) and diastolic (congestive) heart failure kb - Chest pain, unspecified kb Forms: - Medication Reconciliation Form kb - SBAR form kb - Leadership Thank You Letter kb Signatures: Dispatcher [employer] Anali Parada FNP-C FNP-Sydney López Heidy, RN RN ha1 Deneen Eddy Sergey, MD MD sp4 Pedro John RN RN rg5 Corrections: (The following items were deleted from the chart) 02:53 01:57 Telemetry/MedSurg (observation) kb rv1 02:53 01:57 kb rv1 14:51 02:53 [facility] ER HOLD rv1 bd 14:51 02:53 ERHOLD- rv1 bd
[2024-06-09] MEDS ORDERED: FUROSEMIDE 20 MG/ 2ML VIAL ONE ×2 (02:23→02:27)
[2024-06-09] MEDS ORDERED: ONDANSETRON 4 MG/2 ML VIAL IV PRN (02:50)
[2024-06-09] MEDS ORDERED: ALBUTEROL 2.5 MG/3 ML NEB SOL NEB PRN (02:50)
[2024-06-09] MEDS ORDERED: IPRATROPIUM BROM 0.5MG/2.5ML NEB PRN (02:50)
--- NOTE | 2024-06-09 03:02 | P.HP ---
Certification for Inpatient Patient admitted to: Inpatient With expected LOS: >2 Midnights Practitioner: I am a practitioner with admitting privileges, knowledge of patient current condition, hospital course, and medical plan of care. Services: Services provided to patient in accordance with Admission requirements found in Title 42 Section 412.3 of the Code of Federal Regulations Patient History Date of Service: 06/09/24 Reason for admission: shortness of breath History of Present Illness: Patient is a 73 year old male with PMH of CAD, diastolic CHF and CKD. He presents with acute onset of shortness of breath, which started a few hours before admission. Patient is reporting orthopnea and bilateral lower extremity edema. Associated symptoms include chest pain. He arrived in the ER hypoxic, currently requiring 3L. CXR concerning for pulmonary edema. He has a Cr of 2.29 and BNP of 1253. Patient took 60 mg of PO Lasix the morning of admission. Allergies No Known Allergies Allergy (Verified 01/13/21 22:24) Home Medications: Furosemide [Lasix*] 20 mg PO TID 05/11/22 Magnesium Oxide 400 mg PO BID 05/11/22 Metoprolol Succinate [Toprol Xl*] 12.5 mg PO DAILY PRN 05/11/22 Potassium Chloride [Klor-Con 10] 40 meq PO DAILY 11/21/22 glipiZIDE [Glipizide] 5 mg PO DAILY PRN 11/21/22 Apixaban [Eliquis] 5 mg PO BID 01/28/24 Aripiprazole [Abilify] 30 mg PO DAILY 01/28/24 Empagliflozin [Jardiance] 25 mg PO DAILY 01/28/24 Gabapentin [Neurontin*] 2 tab PO BEDTIME 01/28/24 Trazodone HCl 2 tab PO BEDTIME 01/28/24 Clotrim/Betameth Cream [Lotrisone Cream*] 1 appl TOP DAILY #1 tube 01/31/24 Amiodarone HCl [Cordarone*] 200 mg PO BID 03/19/24 Spironolactone 50 mg PO DAILY #90 tab 03/20/24 - Past Medical/Surgical History Diabetic: Yes -: Hypertension -: Diabetes mellitus type 2 -: Posttraumatic stress disorder -: Anxiety -: Hepatitis-C -: Hyperlipidemia -: CAD, stent placement x2, atrial fibrillation, chronic diastolic CHF -: Obstructive sleep apnea -: Obesity -: Diabetic neuropathy -: History pancreatitis -: COPD, tobacco abuse -: 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 - Family History Father -: Other (see notes) Notes: CHF Mother -: Cancer Notes: breast cancer Sister -: Cancer Notes: colon cancer Brother -: Cancer Notes: throat cancer - Social History Alcohol use: No CD- Drugs: No Caffeine use: Yes Physical Examination - Physical Exam General: Acute distress, Obese HEENT: Atraumatic, Normocephalic Respiratory: Diminished, Other (NO wheezing appreciated. ) Cardiovascular: Normal pulses, Regular rate/rhythm, Normal S1 S2, Edema (Bilateral lower extremity edema) Neurological: Normal speech - Studies Laboratory Data (last 24 hrs) 06/09/24 06/09/24 06/09/24 00:45 00:45 00:45 WBC 10.10 Hgb 12.5 L Hct 38.3 L Plt Count 183 PT 15.3 H INR 1.46 Sodium 139 Potassium 3.8 BUN 47 H Creatinine 2.29 H Glucose 236 H Magnesium 2.2 Assessment and Plan - Problems (Diagnosis) (1) Acute on chronic diastolic (congestive) heart failure Onset Date: 05/07/17 Current Visit: No Status: Acute (2) Acute respiratory failure with hypoxia Current Visit: No Status: Acute (3) Acute worsening of stage 3 chronic kidney disease Current Visit: No Status: Acute (4) Afib Current Visit: No Status: Chronic Qualifiers: (5) BMI 38.0-38.9,adult Current Visit: No Status: Chronic (6) Cor pulmonale Current Visit: No Status: Chronic (7) Coronary artery disease Current Visit: No Status: Chronic Qualifiers: (8) Diabetes mellitus Onset Date: 12/03/16 Current Visit: No Status: Chronic (9) GERD (gastroesophageal reflux disease) Onset Date: 12/03/16 Current Visit: No Status: Chronic Qualifiers: (10) Hypertension Onset Date: 05/07/17 Current Visit: No Status: Chronic Qualifiers: (11) Obstructive sleep apnea Onset Date: 11/11/17 Current Visit: No Status: Chronic - Plan Assessment This is a 73 year old male with extensive cardiovascular history including CAD, ATRIAL fibrillation and chronic diastolic CHF. He is being admitted for decompensated CHF complicated by hypoxia and possibly cardiorenal syndrome. He received 40 mg IV KCl in the ER. He is requiring 3L via NC. Acute hypoxemic respiratory failure Acute on chronic diastolic CHF Acute on chronic CKD stage III Atrial fibrillation CAD Type II diabetes mellitus Generalized weakness Morbid obesity PLAN: Admit inpatient with telemetry Cautious diuresis due to renal insufficiency Repeat BMP before additional diuresis. Patient has already received 40 mg of IV lasix x 1 in the ER Follow TTE Monitor I/O Pacemaker interrogation Insulin sliding scale DVT ppx with heparin subc Resume rest of home medications upon reconciliation PT/OT before discharge. - Advance Directives Does patient have a Living Will: No Does patient have a Durable POA for Healthcare: No
[2024-06-09] MEDS ORDERED: GLUCAGON 1 MG/VIAL IM PRN (03:04)
[2024-06-09] MEDS ORDERED: D10W 125 ML IV PRN (03:04)
[2024-06-09 03:39] VITALS: BMI 38.1
--- NOTE | 2024-06-09 05:36 | RAD REPORT ---
EXAM DESCRIPTION: Chest Single View [employer]Lex: XR CHEST 1 VIEW CLINICAL HISTORY: 73 years Male, CHEST PAIN COMPARISON: None. FINDINGS: Single portable AP upright view of the chest. Left infraclavicular generator pack with dual pacing le ads. Postsurgical changes related to prior sternotomy. Borderline size of the cardiac silhouette. Mild bilateral interstitial prominence. No consolidation. No pleural effusion or pneumothorax. No acu te osseous abnormality. IMPRESSION: Mild bilateral interstitial prominence which could be due to mild edema or infection. Electronically signed by: Indy Tesfaye MD 06/09/2024 12:49 AM [facility] Due to temporary technical issues with the [employer] reporting system, reports are being ceci d by the in-house radiologist without review as a courtesy to ensure prompt reporting the interpreting radiologist is fully responsible for the content of the report. Transcribed Date/Time: 06/09/2024 5:35 AM
[2024-06-09 06:36] LABS: Magnesium 2.3 mg/dL (1.6-2.4); Phosphorus 3.8 mg/dL (2.5-4.9)
[2024-06-09] MEDS: INSULIN REGULAR (HUMAN) 100 UNIT/ML SQ SCH (07:30)
[2024-06-09] MEDS: HEPARIN 5000 UNIT/ML 1 ML VIAL SQ SCH (09:00)
[2024-06-09] MEDS ORDERED: HEPARIN 5000 UNIT/ML 1 ML VIAL ONE (10:17)
[2024-06-09] MEDS: FUROSEMIDE 40 MG TABLET PO SCH (12:00)
--- NOTE | 2024-06-09 12:10 | EKG ---
Test Date: 2024-06-09 Test Time: 00:35:16 Pole Peeling Machine Operator Helper: MISTY MEASUREMENT RESULTS: Intervals: Rate: 60 NV: QRSD: 164 QT: 592 QTc: 592 [place]: P: NV: QRS: -70 T: 89 INTERPRETIVE STATEMENTS: Electronic ventricular pacemaker Compared to ECG 03/18/2024 17:56:56 No significant changes Electronically Signed On 06-09-24 12:09:29 ORBITREAD OPERATOR by Maicol Crooks
--- NOTE | 2024-06-09 14:08 | ECHO ---
HEIGHT: 6 ft 0 in WEIGHT: 280 lb 15.793 oz DATE OF STUDY: 06/09/[address]: Prince Jake Serna MD 2-DIMENSIONAL: YES M.MODE: YES DOPPLER: YES COLOR FLOW: YES TDS: YES PORTABLE: YES DEFINITY: NO BUBBLE STUDY: NO DIAGNOSIS: CHF EXACERBATION CARDIAC HISTORY: CATHERIZATION: YES SURGERY: YES PROSTHETIC VALVE: NO PACEMAKER: YES MEASUREMENTS (cm) DIASTOLIC (NORMALS) SYSTOLIC (NORMALS) IVSd 1.5 (0.6-1.2) LA Diam 3.6 (1.9-4.0) LVEF 40-45% LVIDd 5.3 (3.5-5.7) LVIDs 3.4 (2.0-3.5) %FS 36% LVPWd 1.5 (0.6-1.2) Ao Diam 3.0 (2.0-3.7) 2 DIMENSIONAL ASSESSMENT: RIGHT ATRIUM: NORMAL LEFT ATRIUM: MILDLY DILATED RIGHT VENTRICLE: NORMAL LEFT VENTRICLE: NORMAL TRICUSPID VALVE: TRACE OF TRICUSPID REGURGITATION MITRAL VALVE: TRACE OF MITRAL REGURGITATION PULMONIC VALVE: NORMAL AORTIC VALVE: MILDLY CALCIFIED PERICARDIAL EFFUSION: NONE AORTIC ROOT: NORMAL LEFT VENTRICULAR WALL MOTION: MILD GLOBAL HYPOKINESIS. MID ANTEROSEPTAL, APICAL ANTERIOR AND APICAL WALL AKINESIS. DOPPLER/COLOR FLOW: DIASTOLIC DYSFUNCTION. COMMENTS: 1. MILDLY REDUCED LEFT VENTRICULAR SYSTOLIC FUNCTION, EJECTION FRACTION 40-45%, WALL MOTION ABNORMALITIES, SEE ABOVE. 2. DIASTOLIC DYSFUNCTION. 3. NORMAL FILLING PRESSURE. TECHNOLOGIST: RHONDA ZHENG
[2024-06-09] MEDS ORDERED: METOPROLOL XL 25 MG TAB PO PRN (18:07)
[2024-06-09] MEDS ORDERED: HEPARIN 5000 UNIT/ML 1 ML VIAL SQ SCH (21:00)
[2024-06-09] MEDS: AMIODARONE HCL 200 MG TAB PO SCH (21:15)
[2024-06-09] MEDS: APIXABAN 5 MG TABLET PO SCH (21:15)
[2024-06-10] MEDS: TRAZODONE 50 MG TABLET PO PRN ×2 (02:37→20:48)
[2024-06-10 04:36] LABS: Absolute Basophils 0.1 K/uL (0-0.5); Absolute Eosinophils 0.2 K/uL (0-0.5); Absolute Lymphocytes (CBC) 0.8 K/uL (0.7-4.9); Absolute Monocytes 0.8 K/uL (0.1-1.3); Absolute Neutrophil 7.2 K/uL (1.8-8.0); Basophils % 0.7 % (0-1.3); Eosinophils % 2.3 % (0-4.4); Hematocrit 38.8 % (39.6-49.0); Hemoglobin 13.1 g/dL (13.6-17.9); Lymphocytes % 9.2 % (15.3-44.8); MCH 28.1 pg (27.0-35.0); MCHC 33.7 g/dL (32.0-36.0); MCV 83.2 fL (80-100); MPV 8.6 fL (7.6-11.3); Monocytes % 9.2 % (3.3-12.3); Neutrophils % 78.6 % (41.7-73.7); Platelets 184 thou/uL (152-406); RBC Red Blood Cell Count 4.66 M/uL (4.33-5.43); Red Cell Distribution Width 16.3 % (12.1-15.2)
[2024-06-10 05:02] LABS: Anion Gap 6.7 mEq/L (5.0-15.0); Potassium 3.7 mEq/L (3.5-5.1)
--- NOTE | 2024-06-10 07:59 | RAD REPORT ---
EXAMINATION: US RENAL ULTRASOUND CLINICAL INDICATION: VIANNEY TECHNIQUE: Real-time ultrasonography of the abdomen was performed. COMPARISON: 11/22/2022 FINDINGS: RIGHT KIDNEY: Right renal length measurement: 11.0 x 5.3 x 5.0 cm. Normal in echogenicity and size. N o calculus, solid mass or hydronephrosis. Parapelvic 2.5 cm cyst. LEFT KIDNEY: Left renal length measurement: 9.6 x 5.5 x 4.9 cm. Normal in echogenicity and size. No c alculus, solid mass or hydronephrosis. Numerous left-sided cysts including heavily calcified 3 cm cyst. URINARY BLADDER: Incompletely distended without gross abnormality detected. ADDITIONAL FINDINGS: None. IMPRESSION: Bilateral renal cysts without suspicious change since comparative study. No hydronephrosis or aggress danny mass suspected.
[2024-06-10] MEDS: ARIPIPRAZOLE 30 MG PO SCH (09:00)
[2024-06-10] MEDS: Empagliflozin [Jardiance] 25 MG Tablet *PT OWN MED PO SCH (09:00)
[2024-06-10] MEDS: POTASSIUM CL SA 10 MEQ TAB PO ONE (09:01)
--- NOTE | 2024-06-10 11:44 | CON ---
Date of Consultation: 06/10/2024 Additional Consulting Physician: Dr. Yuen. Reason For Consultation: Elevated BUN and creatinine, fluid management. History Of Present Illness: This is a pleasant 73-year-old gentleman with significant past medical h istory of diabetes since 2018, complicated with neuropathy and nephropathy, no retinopathy, CAD, stat us post PTCA and CABG back in 2017, complicated with congestive heart failure, hep C, pulmonary hyper tension, hyperlipidemia, COPD, chronic edema, atrial fibrillation, congestive heart failure, systolic with ejection fraction of 45%, diastolic dysfunction also. The patient came [facility] from increased leg swelling and shortness of breath. According to the patient, the patient did not miss on any of his diuresis. The patient not dining outside. Upon arrival, the patient had hypo xemia. With pulmonary edema, creatinine 2.2 with BNP 1200. For that reason, we have been consulted. Reviewing the record for the patient, the patient's baseline creatinine 1.8 back in March 2024 w ith GFR about 37. The patient was started on aggressive diuresis, feeling better, still has some swe lling and shortness of breath. Past Medical History: 1. Diabetes since 2018, complicated with neuropathy and nephropathy. No retinopathy. 2. Hypertension. 3. Hyperlipidemia. 4. CAD, status post PTCA and CABG in 2018 and [place] twice with congestive heart failure, ejection fracti on on this admission 45%, combined systolic and diastolic dysfunction. 5. Atrial fibrillation. 6. COPD. 7. Obstructive sleep apnea. 8. Hep C. Home Medications: Include Lasix 20 t.i.d., KCl, glipizide, amitriptyline, Jardiance, gabapentin, ami odarone, and spironolactone. Past Surgical History: 1. CABG. 2. PTCA. 3. Tumor removal. 4. ICD placement. Family History: Positive for CAD, hypertension, and cancer. Social History: Denied smoking. Denied drinking. Denied drugs abuse. Review of Systems: Head and Neck: No red eye. No ear pain. GI: No nausea. No vomiting. : No polyuria. No dysuria. No hematuria. CONSTRUCTION ECONOMIST: Not applicable. Respiratory: Has shortness of breath. Cardiovascular: Has leg swelling. Endocrine: No polydipsia. Skin: No rash. Neuro: Has neuropathy. Musculoskeletal: No joint pain. Physical Examination: Vital Signs: When I saw the patient, blood pressure 150/67, pulse of 63, afebrile. Chest: Crackles bilateral. Heart: S1, S2 regular. Abdomen: Soft, nontender. Extremities: +2 edema. Neurologic: Alert. No focality. Laboratory Data: Yesterday upon admission, creatinine 2.2, GFR of 29, hemoglobin 12.5. Today, hemog lobin 13.1. Sodium 140, potassium 3.7, bicarb 30, BUN 34, creatinine 1.7, GFR of 40, calcium 9. Larry al ultrasound, 03/14.6, bilateral renal cysts, simple. Assessment And Plan: 1. Acute kidney injury secondary to cardiorenal, over volume. I am going to continue on the diuresis for the patient and we will follow up. 2. Hypertension, controlled, optimal. We will utilize blood pressure for more diuresis. 3. Secondary hyperparathyroidism, stable. 4. Hypokalemia. Add spironolactone for the patient regimen. 5. Pulmonary hypertension with edema. Continue optimize diuresis. 6. Congestive heart failure, systolic and diastolic dysfunction. We will optimize the fluid status f or the patient. 7. Atrial fibrillation as by Cardiology. VIVEK/PARTH Voice ID: [id number] Report ID: [id number]
[2024-06-10] MEDS: FUROSEMIDE 40 MG TABLET PO SCH (12:00)
[2024-06-10] MEDS: FUROSEMIDE 40 MG/4 ML VIAL IV ONE (12:28)
[2024-06-10 15:00] VITALS: O2SAT 97
[2024-06-10] MEDS ORDERED: TRAZODONE 150 MG TAB PO PRN (18:28)
[2024-06-11 05:22] LABS: Anion Gap 6.6 mEq/L (5.0-15.0); Phosphorus 2.2 mg/dL (2.5-4.9); Potassium 3.6 mEq/L (3.5-5.1)
[2024-06-11] MEDS: SPIRONOLACTONE 25 MG TABLET PO SCH (09:16)
[2024-06-11] MEDS: POTASS/SODIUM PHOSPHATE 1 PKT POWD.PACK PO ONE (09:22)
[2024-06-11 09:59] VITALS: BP 139/56; TEMP 98.4
== END 2024-06-11 12:38 | disposition home or self-care (01) | DRG 291 ==
LOC: ER 23:13 → ERHOLD 06-09 02:50 → 2ND 06-09 15:53
PROVIDERS: ADMIT Internal Medicine; ATTEND Hospitalist
DX: I13.0 Hypertensive heart and chronic kidney disease with heart failure and stage 1 through stage 4 chronic kidney disease, or unspecified chronic kidney disease (principal); I50.33 Acute on chronic diastolic (congestive) heart failure; J96.01 Acute respiratory failure with hypoxia; I48.20 Chronic atrial fibrillation, unspecified; N18.30 Chronic kidney disease, stage 3 unspecified; E11.22 Type 2 diabetes mellitus with diabetic chronic kidney disease; E11.40 Type 2 diabetes mellitus with diabetic neuropathy, unspecified; I48.91 Unspecified atrial fibrillation; I27.81 Cor pulmonale (chronic); E78.5 Hyperlipidemia, unspecified; E66.01 Morbid (severe) obesity due to excess calories; J44.9 Chronic obstructive pulmonary disease, unspecified; G47.33 Obstructive sleep apnea (adult) (pediatric); K21.9 Gastro-esophageal reflux disease without esophagitis; I25.2 Old myocardial infarction; I25.10 Atherosclerotic heart disease of native coronary artery without angina pectoris; Z95.0 Presence of cardiac pacemaker; Z95.1 Presence of aortocoronary bypass graft; Z79.82 Long term (current) use of aspirin; Z79.01 Long term (current) use of anticoagulants; Z79.84 Long term (current) use of oral hypoglycemic drugs; Z95.5 Presence of coronary angioplasty implant and graft; Z68.38 Body mass index [BMI] 38.0-38.9, adult; Z79.899 Other long term (current) drug therapy
CPT/HCPCS: 36415; 71045; 76770; 80048; 80061; 80069; 82947; 83735; 83880; 84100; 84484; 85025; 85610; 93005; 93306; 96374; 97116; 97161; 97165; 97530; 99285; J1644; J1940

== ENCOUNTER 2024-06-17 07:13 | Emergency (ER) | payer OTHER ==
[2024-06-17 07:56] LABS: Absolute Basophils 0.1 K/uL (0-0.5); Absolute Eosinophils 0.1 K/uL (0-0.5); Absolute Lymphocytes (CBC) 0.9 K/uL (0.7-4.9); Absolute Monocytes 0.8 K/uL (0.1-1.3); Absolute Neutrophil 6.4 K/uL (1.8-8.0); Basophils % 1.3 % (0-1.3); Eosinophils % 1.3 % (0-4.4); Hematocrit 37.7 % (39.6-49.0); Hemoglobin 12.4 g/dL (13.6-17.9); Lymphocytes % 10.5 % (15.3-44.8); MCH 27.6 pg (27.0-35.0); MCHC 32.9 g/dL (32.0-36.0); MCV 83.8 fL (80-100); MPV 8.3 fL (7.6-11.3); Monocytes % 9.2 % (3.3-12.3); Neutrophils % 77.7 % (41.7-73.7); Nucleated Red Blood Cells % 0.1 % (0-0); Platelets 197 thou/uL (152-406); Red Cell Distribution Width 16.6 % (12.1-15.2)
--- NOTE | 2024-06-17 08:16 | RAD REPORT ---
Procedure: Chest Single View HISTORY: Shortness of breath COMPARISON: June 08, 2024 FINDINGS: The lungs appear clear of acute infiltrate. No significant pleural effusion noted. The heart is moderately enlarged. Post surgical changes involve the chest. Pacemaker leads in place. IMPRESSION: No acute abnormality is displayed.
[2024-06-17 08:17] LABS: ALT/SGPT 22 U/L (16-61); Albumin 3.2 g/dL (3.4-5.0); Albumin/Globulin Ratio 0.8 (1.1-1.8); Alkaline Phosphatase 74 U/L (45-117); Anion Gap 7.9 mEq/L (5.0-15.0); BUN Blood Urea Nitrogen 44 mg/dL (7-18); Bicarbonate 26 mEq/L (21-32); Bilirubin Total 0.3 mg/dL (0.2-1.0); Glomerular Filtration Rate 31 ml/min (=/>90); Glucose Level 209 mg/dL (74-106); NT PRO-BNP 2590 pg/mL (<450); Protein, Total 7.2 g/dL (6.4-8.2); Sodium Level 137 mEq/L (136-145); Troponin High Sensitivity 26.9 pg/mL (<58.9)
[2024-06-17 08:19] LABS: AST/SGOT 13 U/L (15-37); Bilirubin Direct < 0.2 mg/dL (0-0.2); Bilirubin Indirect, Calculated 0.1 mg/dL (0.2-0.8); Potassium 3.9 mEq/L (3.5-5.1)
--- NOTE | 2024-06-17 08:46 | ER ---
Nurse's Notes [facility] Name: Ludwin Hsu Age: 73 yrs Sex: Male : 1950 Arrival Date: 06/17/2024 Time: 07:13 Bed 7 Private MD: Baldev George V Diagnosis: Dyspnea Presentation: 06/17 07:21 Chief complaint: EMS states: SOB that started at 5 am this morning, denies pain, hx of ph CHF and COPD, was d/c from hospital last Saturday, room air Spo2 94-95%, states that he feels better when on oxygen, given 2L for comfort, Spo2 97% on NC, pt denies pain or fever, took 60 mg Lasix this morning. Coronavirus screen: Vaccine status: Patient reports receiving the 2nd dose of the covid vaccine. Ebola Screen: No symptoms or risks identified at this time. Initial Sepsis Screen: Does the patient meet any 2 criteria? No. Patient's initial sepsis screen is negative. Does the patient have a suspected source of infection? No. Patient's initial sepsis screen is negative. Risk Assessment: Do you want to hurt yourself or someone else? Patient reports no desire to harm self or others. Onset of symptoms was June 17, 2024. 07:21 Method Of Arrival: EMS: [facility] 07:21 Acuity: NGUYEN 3 ph Triage Assessment: 07:29 General: Appears in no apparent distress. Behavior is calm, cooperative, Denies fever, ph feeling ill. Pain: Denies pain. Neuro: Level of Consciousness is awake, alert, obeys commands, Oriented to person, place, time, situation. Cardiovascular: Capillary refill < 3 seconds in bilateral fingers Patient's skin is warm and dry. Respiratory: Reports shortness of breath at rest Breath sounds are clear bilaterally. Onset: The symptoms/episode began/occurred this morning, the patient has mild shortness of breath. Derm: Skin is pink, warm \T\ dry. Historical: - Allergies: 07:27 NKA; ph - Home Meds: 07:27 aripiprazole oral [Active]; aspirin 81 mg Oral capsule once [Active]; atorvastatin 40 ph mg Oral tab 1 tab once daily [Active]; Eliquis oral [Active]; empagliflozin 25 mg Oral tablet 0.5 tab once [Active]; furosemide 60 mg Oral tab once [Active]; glipizide 10 mg Oral tab [Active]; losartan 50 mg Oral tablet once [Active]; magnesium oxide 420 mg Oral tab [Active]; metoprolol succinate 50 mg Oral Tb24 1 tab once daily [Active]; potassium chloride 10 mEq Oral cpER 1 cap once daily [Active]; spironolactone 25 mg Oral tab daily [Active]; trazodone 300 mg Oral tablet every day at bedtime [Active]; - PMHx: 07:27 Atrial fibrillation; CHF; COPD; diabetes mellitus; Hypertensive disorder; ph - PSHx: 07:27 Coronary artery bypass graft; pacemaker; ph - Immunization history:: Adult Immunizations unknown. - Infectious Disease History:: Denies. - Social history:: Smoking status: unknown. Screenin:30 [facility] ED Fall Risk Assessment (Adult) History of falling in the last 3 months, ph including since admission No falls in past 3 months (0 pts) Confusion or Disorientation No (0 pts) Intoxicated or Sedated No (0 pts) Impaired Gait No (0 pts) Mobility Assist Device Used No (0 pt) Altered Elimination No (0 pt) Score/Fall Risk Level 0 - 2 = Low Risk Oriented to surroundings, Maintained a safe environment, Hourly rounding (assess needs \T\ fall precautionary measures) done. Abuse screen: Denies threats or abuse. Denies injuries from another. Nutritional screening: No deficits noted. Tuberculosis screening: No symptoms or risk factors identified. Assessment: 08:00 General: SEE TRIAGE ASSESSMENT. ph 08:17 Reassessment: Patient appears in no apparent distress at this time. Patient and/or ph family updated on plan of care and expected duration. Pain level reassessed. Patient is alert, oriented x 3, equal unlabored respirations, skin warm/dry/pink. Pt not currently on oxygen Patient states feeling better. Patient states symptoms have improved. 08:39 Reassessment: No changes from previously documented assessment. Patient and/or family ll1 updated on plan of care and expected duration. Pain level reassessed. 09:15 Reassessment: Patient appears in no apparent distress at this time. Patient and/or ph family updated on plan of care and expected duration. Pain level reassessed. Patient is alert, oriented x 3, equal unlabored respirations, skin warm/dry/pink. D/C pending ride home, pt states that daughter is coming to pick him up, pt given cereal, fruit and juice. 10:18 Cardiovascular: Rhythm is atrial pacer. ph Vital Signs: 07:21 BP 156 / 68; Pulse 59; Resp 18; Temp 97.8; Pulse Ox 96% on R/A; Weight 127.01 kg; ph Height 6 ft. 0 in. ; 08:16 BP 111 / 61; Pulse 61; Resp 18; Pulse Ox 97% on R/A; ph 09:00 BP 118 / 72; Pulse 68; Resp 18; Pulse Ox 96% on R/A; ph 10:00 BP 120 / 78; Pulse 61; Resp 18; Temp 97.8; Pulse Ox 95% on R/A; ph 07:21 Body Mass Index 37.97 (127.01 kg, 182.88 cm) ph Vitals: 08:16 Cardiac Rhythm Assessment Paced. ph ED Course: 07:14 Patient arrived in ED. as 07:14 Baldev George MD is Private Physician. as 07:15 Miguel Guevara MD is Attending Physician. rt 07:21 Ruth Lawler, RN is Primary Nurse. ph 07:27 Triage completed. ph 07:30 Arm band placed on Patient placed in an exam room, on a stretcher, on quality assurance monitor chassis, ph on pulse oximetry. 07:30 Patient has correct armband on for positive identification. Bed in low position. Call ph light in reach. Side rails up X2. Client placed on continuous cardiac and pulse oximetry monitoring. NIBP monitoring applied. property assessment monitor on. Door closed. Noise minimized. 07:40 Initial lab(s) drawn, by me, sent to lab. Inserted saline lock: 22 gauge in right ph forearm, using aseptic technique. Blood collected. Flushed with 10 mL NS. 08:02 XRAY Chest (1 view) In Process Unspecified. EDMS 08:07 Basic Metabolic Panel Sent. ph 08:07 LFT's Sent. ph 08:07 NT PRO-BNP Sent. ph 08:07 Troponin HS Sent. ph 08:16 EKG done, by ED staff, reviewed by Miguel Guevara MD. ph 08:18 Male Purewick placed to pt. ph 08:39 Door closed. cell phone given to patient. ll1 08:44 Baldev George MD is Referral Physician. rt 09:16 No provider procedures requiring assistance completed. ph 10:19 IV discontinued, intact, bleeding controlled, No redness/swelling at site. Pressure ph dressing applied. Administered Medications: No medications were administered Medication: 07:30 VIS not applicable for this client. ph Outcome: 08:45 Discharge ordered by MD. rt 10:18 Discharged to home via wheelchair, with family, ph 10:18 Condition: good 10:18 Discharge instructions given to patient, Instructed on discharge instructions, follow up and referral plans. Demonstrated understanding of instructions, follow-up care, 10:19 Patient left the ED. ph Signatures: Dispatcher [employer] EDMS Kim Hensley Patricia, RN RN ph Yogesh Poole RN RN ll1 Miguel Guevara MD MD rt Corrections: (The following items were deleted from the chart) 07:29 07:27 Home Meds: aripiprazole oral; ph ph 07:29 07:27 Home Meds: furosemide 60 mg Oral tab once; ph ph
--- NOTE | 2024-06-17 08:46 | EDPHYS ---
Physician Documentation [facility] Name: Ludwin Hsu Age: 73 yrs Sex: Male : 1950 Arrival Date: 06/17/2024 Time: 07:13 Bed 7 Private MD: Baldev George V ED Physician Miguel Guevara HPI: 06/17 09:40 This 73 yrs old Male presents to ER via EMS with complaints of Shortness Of Breath. rt 09:40 Patient presents to the ED with dyspnea. Patient had a recent admission to the rt hospital, subsequent discharged off of oxygen. Patient's oxygen saturations were 95% on room air, stated they feel better on nasal cannula but the nasal cannula was never attached to oxygen. Denies other acute complaints at this time, symptoms are moderate in severity, no other aggravating or alleviating factors.. Historical: - Allergies: 07:27 NKA; ph - Home Meds: :27 aripiprazole oral [Active]; aspirin 81 mg Oral capsule once [Active]; atorvastatin 40 ph mg Oral tab 1 tab once daily [Active]; Eliquis oral [Active]; empagliflozin 25 mg Oral tablet 0.5 tab once [Active]; furosemide 60 mg Oral tab once [Active]; glipizide 10 mg Oral tab [Active]; losartan 50 mg Oral tablet once [Active]; magnesium oxide 420 mg Oral tab [Active]; metoprolol succinate 50 mg Oral Tb24 1 tab once daily [Active]; potassium chloride 10 mEq Oral cpER 1 cap once daily [Active]; spironolactone 25 mg Oral tab daily [Active]; trazodone 300 mg Oral tablet every day at bedtime [Active]; - PMHx: 07:27 Atrial fibrillation; CHF; COPD; diabetes mellitus; Hypertensive disorder; ph - PSHx: 07:27 Coronary artery bypass graft; pacemaker; ph - Immunization history:: Adult Immunizations unknown. - Infectious Disease History:: Denies. - Social history:: Smoking status: unknown. ROS: 09:40 Constitutional: Negative for fever, chills, and weight loss, Cardiovascular: Negative rt for chest pain, palpitations, and edema, Abdomen/GI: Negative for abdominal pain, nausea, vomiting, diarrhea, and constipation, MS/Extremity: Negative for injury and deformity, Skin: Negative for injury, rash, and discoloration, Neuro: Negative for headache, weakness, numbness, tingling, and seizure, 09:40 Respiratory: Positive for cough, shortness of breath, Exam: 09:40 Constitutional: This is a well developed, well nourished patient who is awake, alert, rt and in no acute distress. Head/Face: Normocephalic, atraumatic. Chest/axilla: Normal chest wall appearance and motion. Nontender with no deformity. No lesions are appreciated. Cardiovascular: Regular rate and rhythm with a normal S1 and S2. No gallops, murmurs, or rubs. Normal PMI, no JVD. No pulse deficits. Respiratory: Lungs have equal breath sounds bilaterally, clear to auscultation and percussion. No rales, rhonchi or wheezes noted. No increased work of breathing, no retractions or nasal flaring. Abdomen/GI: Soft, non-tender, with normal bowel sounds. No distension or tympany. No guarding or rebound. No evidence of tenderness throughout. Skin: Warm, dry with normal turgor. Normal color with no rashes, no lesions, and no evidence of cellulitis. MS/ Extremity: Pulses equal, no cyanosis. Neurovascular intact. Full, normal range of motion. Neuro: Awake and alert, GCS 15, oriented to person, place, time, and situation. Cranial nerves II-XII grossly intact. Motor strength 5/5 in all extremities. Sensory grossly intact. Cerebellar exam normal. Normal gait. 09:40 ECG was reviewed by the Attending Physician. Vital Signs: 07:21 BP 156 / 68; Pulse 59; Resp 18; Temp 97.8; Pulse Ox 96% on R/A; Weight 127.01 kg; ph Height 6 ft. 0 in. ; 08:16 BP 111 / 61; Pulse 61; Resp 18; Pulse Ox 97% on R/A; ph 09:00 BP 118 / 72; Pulse 68; Resp 18; Pulse Ox 96% on R/A; ph 10:00 BP 120 / 78; Pulse 61; Resp 18; Temp 97.8; Pulse Ox 95% on R/A; ph 07:21 Body Mass Index 37.97 (127.01 kg, 182.88 cm) ph MDM: 07:24 Medical Screening Exam initiated rt 09:40 Differential diagnosis: Dyspnea, CHF, COPD. Data reviewed: vital signs, nurses notes, rt lab test result(s), EKG, radiologic studies. Consideration of Admission/Observation Escalation of care including admission/observation considered. Patient presents with dyspnea, no hypoxia, clear chest x-ray, labs are at baseline. Discussed with patient's primary, will follow-up patient as an outpatient.. Independent interpretation of the following test(s) in the Emergency Department CT Scan: My interpretation is No infiltrate seen on my interpretation of x-ray image. Test considered but Not performed: CT: Low suspicion for PE, CT angiogram not indicated. Care significantly affected by the following chronic conditions: Congestive Heart Failure, Chronic Obstructive Pulmonary Disease. Counseling: I had a detailed discussion with the patient and/or guardian regarding the historical points, exam findings, and any diagnostic results supporting the discharge/admit diagnosis, lab results, radiology results. Response to treatment: the patient's symptoms have markedly improved after treatment. 06/17 07:27 Order name: Basic Metabolic Panel; Complete Time: 08:21 rt 06/17 07:27 Order name: CBC with Diff; Complete Time: 08:17 rt 06/17 07:27 Order name: LFT's; Complete Time: 08:21 rt 06/17 07:27 Order name: NT PRO-BNP; Complete Time: 08:21 rt 06/17 07:27 Order name: Troponin HS; Complete Time: 08:21 rt 06/17 07:27 Order name: XRAY Chest (1 view); Complete Time: 08:17 rt 06/17 07:27 Order name: Cardiac monitoring; Complete Time: 08: rt 06/17 07:27 Order name: EKG - Nurse/Tech; Complete Time: 08:18 rt 06/17 07:27 Order name: IV Saline Lock; Complete Time: 08: rt 06/17 07:27 Order name: Labs collected and sent; Complete Time: 08: rt 06/17 07:27 Order name: O2 Per Protocol; Complete Time: 08: rt 06/17 07:27 Order name: O2 Sat Monitoring; Complete Time: 08: rt EC:40 Rate is 60 beats/min. Rhythm is regular, Paced with No ectopy. MN interval is normal. rt QRS interval is normal. QT interval is normal. No Q waves. Administered Medications: No medications were administered Disposition Summary: 06/17/24 08:45 Discharge Ordered Notes: Location: Home rt Problem: an acute exacerbation rt Symptoms: have improved rt Condition: Stable rt Diagnosis - Dyspnea rt Followup: rt - With: Baldev George MD - When: 5 - 6 days - Reason: Discharge Instructions: - Discharge Summary Sheet rt - Shortness of Breath, Adult rt Forms: - Medication Reconciliation Form rt - Antibiotic Education rt - Prescription Opioid Use rt - Patient Portal Instructions rt - Leadership Thank You Letter rt Signatures: Dispatcher [employer] Ruth Andrews RN RN ph Miguel Guevara MD MD rt Corrections: (The following items were deleted from the chart) 07: 07:27 Home Meds: aripiprazole oral; ph ph 07: 07:27 Home Meds: furosemide 60 mg Oral tab once; ph ph
--- NOTE | 2024-06-17 11:43 | EKG ---
Test Date: 2024-06-17 Test Time: 08:10:43 Cub Reporter: ALO MEASUREMENT RESULTS: Intervals: Rate: 60 TX: QRSD: 166 QT: 540 QTc: 540 [place]: P: TX: QRS: -71 T: 53 INTERPRETIVE STATEMENTS: Electronic ventricular pacemaker Compared to ECG 06/09/2024 00:35:16 No significant changes Electronically Signed On 06-17-24 11:43:09 LAP WELDER by Maicol Crooks
[2024-06-17 12:52] VITALS: TEMP 97.8
[2024-06-17 13:00] VITALS: BP 120/78; O2SAT 95
== END 2024-06-17 10:19 | disposition home or self-care (01) ==
LOC: EEVIPCON 07:13 → ER 07:13
DX: R06.00 Dyspnea, unspecified (principal); R05.9 Cough, unspecified; J44.9 Chronic obstructive pulmonary disease, unspecified; I50.9 Heart failure, unspecified; I10 Essential (primary) hypertension; I48.91 Unspecified atrial fibrillation; Z79.01 Long term (current) use of anticoagulants; E11.9 Type 2 diabetes mellitus without complications; Z95.0 Presence of cardiac pacemaker; Z95.1 Presence of aortocoronary bypass graft; Z79.82 Long term (current) use of aspirin
CPT/HCPCS: 36415; 71045; 80048; 80076; 83880; 84484; 85025; 93005

== ENCOUNTER 2024-07-13 08:33 | Inpatient (IN) | payer OTHER ==
[2024-07-13] MEDS ORDERED: NA CHLORIDE 0.9% 500 ML ONE (08:55)
[2024-07-13 09:03] LABS: Absolute Basophils 0.1 K/uL (0-0.5); Absolute Eosinophils 0.1 K/uL (0-0.5); Absolute Lymphocytes (CBC) 0.5 K/uL (0.7-4.9); Absolute Monocytes 0.8 K/uL (0.1-1.3); Absolute Neutrophil 8.1 K/uL (1.8-8.0); Basophils % 0.8 % (0-1.3); Eosinophils % 0.9 % (0-4.4); Hematocrit 38.8 % (39.6-49.0); Hemoglobin 12.5 g/dL (13.6-17.9); Lymphocytes % 5.3 % (15.3-44.8); MCH 27.6 pg (27.0-35.0); MCHC 32.2 g/dL (32.0-36.0); MCV 85.7 fL (80-100); MPV 7.7 fL (7.6-11.3); Monocytes % 7.9 % (3.3-12.3); Neutrophils % 85.1 % (41.7-73.7); Platelets 193 thou/uL (152-406); RBC Red Blood Cell Count 4.52 M/uL (4.33-5.43); Red Cell Distribution Width 16.5 % (12.1-15.2)
[2024-07-13 09:20] LABS: PT Prothrombin Time 15.7 SECONDS (10-13.0); Protime INR 1.4
[2024-07-13 09:23] LABS: ALT/SGPT 18 U/L (16-61); Albumin/Globulin Ratio 0.8 (1.1-1.8); Alkaline Phosphatase 77 U/L (45-117); Anion Gap 8.5 mEq/L (5.0-15.0); BUN Blood Urea Nitrogen 29 mg/dL (7-18); Bicarbonate 31 mEq/L (21-32); Bilirubin Direct 0.2 mg/dL (0-0.2); Bilirubin Indirect, Calculated 0.4 mg/dL (0.2-0.8); Bilirubin Total 0.6 mg/dL (0.2-1.0); Globulin 3.6 g/dL (2.3-3.5); Glomerular Filtration Rate 38 ml/min (=/>90); Glucose Level 180 mg/dL (74-106); Magnesium 2.1 mg/dL (1.6-2.4); NT PRO-BNP 2818 pg/mL (<450); Potassium 3.5 mEq/L (3.5-5.1); Protein, Total 6.6 g/dL (6.4-8.2); Sodium Level 139 mEq/L (136-145); Troponin High Sensitivity 23.8 pg/mL (<58.9)
[2024-07-13 09:25] LABS: AST/SGOT < 10 U/L (15-37)
--- NOTE | 2024-07-13 09:42 | RAD REPORT ---
EXAMINATION: ONE VIEW CHEST XR CLINICAL INDICATION: Male, 73 years old.,weakness TECHNIQUE: Frontal chest projection is submitted. Examination is limited by patient positioning and t echnique. COMPARISON: 06/17/2024 FINDINGS: Patchy interstitial opacities most pronounced in the right mid to lower lung, with mild prominence of the central vasculature. No focal consolidation. No pneumothorax or sizable effusion. The heart is normal in size. Mediastinal contours are unchanged with sequelae of median sternotomy and left ana st wall pacer. IMPRESSION: Patchy interstitial opacities with prominence of the central vasculature, could relate to mild centra l venous congestion or atypical pneumonitis.
[2024-07-13 10:26] LABS: Blood Morphology Comment NOT SEEN (NOT SEEN); Platelet Estimate ADEQ; White Blood Cell Scan OK (OK)
--- NOTE | 2024-07-13 10:45 | RAD REPORT ---
EXAM: CT Head Brain Wo Cont HISTORY: WEAKNESS COMPARISON: 05/10/2022 TECHNIQUE: Multiple contiguous axial images were obtained for a CT of the brain without contrast. Sag ittal and coronal reformats were performed. One or more of the following dose reduction techniques were used: Automated exposure control, adjus tment of the mA and kV according to patient size, and iterative reconstruction. Unless otherwise specified, incidental findings do not require dedicated imaging follow-up. FINDINGS: No evidence of hydrocephalus, intracranial hemorrhage, or extra-axial fluid collection. Mild brain atrophy with mild periventricular and deep white matter chronic microvascular ischemic ch anges, stable. The calvarium is intact. The visualized paranasal sinuses and mastoid air cells are essentially clear . IMPRESSION: No evidence of acute intracranial abnormality.
[2024-07-13 11:08] LABS: Sqamous Epithelial <5 /HPF (None Seen); Urine Bacteria <20 /HPF (<20); Urine Bilirubin NEGATIVE (Negative); Urine Blood Negative (Negative); Urine Clarity Clear (Clear); Urine Color Light-Yellow (Yellow); Urine Culture Reflex Order NOT NEEDED; Urine Glucose 4+ (Over) (Negative); Urine Ketones NEGATIVE (Negative); Urine Micro Reflex YN NO BILL MICROSCOPIC; Urine Nitrite NEGATIVE (Negative); Urine Protein TRACE (Negative); Urine RBC <5 /HPF (None Seen); Urine Urobilinogen Normal (Normal); Urine WBC <5 /HPF (<5)
[2024-07-13 12:16] LABS: Influenza A Ag Negative; Influenza B Ag Negative; SARS-CoV-2 Antigen Rapid Res Negative (Negative)
[2024-07-13 12:19] LABS: Troponin High Sensitivity 21.8 pg/mL (<58.9)
--- NOTE | 2024-07-13 12:28 | RAD REPORT ---
EXAM: CT CHEST, ABDOMEN AND PELVIS WITHOUT CONTRAST CLINICAL INDICATION: Male, 73 years old. HS MAIN fall, weakness of legs Bed Name: 8 TECHNIQUE: CT chest, abdomen and pelvis was performed, without IV contrast, as per department protoco l. Axial, sagittal and coronal reconstructions were obtained. One or more of the following dose reduction techniques were used: Automated exposure control, adjustment of the mA and/or kV according to the patient size, and/or iterative reconstruction. Unless otherwise specified, incidental findings do not require dedicated imaging follow-up. COMPARISON: 05/10/2022 FINDINGS: The lack of intravenous contrast limits the sensitivity of this exam for evaluation of solid visceral organs, vascular structures, and retroperitoneum. Chest: LOWER NECK/CHEST WALL: Visualized thyroid gland and soft tissues are normal. LUNGS AND AIRWAYS: Airways are clear. Central predominant patchy airspace opacities most pronounced i n the lower lobes and right middle lobe. PLEURA: Small layering pleural effusions more so on the right.. No pneumothorax. Hemidiaphragms are n ormally positioned. MEDIASTINUM AND LYMPH NODES: No mediastinal mass or fluid collection. Normal size mediastinal, hilar, and axillary lymph nodes. THORACIC AORTA: Normal caliber and configuration. PULMONARY ARTERIES: Normal caliber. HEART: Unremarkable. Abdomen/Pelvis LIVER: Normal in size and contour. No focal lesion. GALLBLADDER/BILE DUCTS: Layering mildly hyperdense sludge. No biliary ductal dilatation. PANCREAS: No mass, ductal dilation, or sonia-pancreatic fluid. SPLEEN: Normal size. No focal lesion. ADRENALS: Normal; no mass. KIDNEYS AND URETERS: Normal size. Stable hypoattenuating bilateral cysts, largest at the left lower p ole demonstrating wall calcifications measuring 3.7 x 2.9 cm. Few punctate radiodensities along the right renal calyces, largest measuring 4 mm, could relate to vascular calcifications or small nonobst ructing calculi.. No hydronephrosis. GASTROINTESTINAL TRACT: Stomach is non-dilated. Small bowel has normal course and caliber. No colonic wall thickening or pericolonic inflammatory changes. Distal colonic diverticulosis. PERITONEUM: No free fluid. LYMPH NODES: No lymphadenopathy. ABDOMINAL AORTA AND OTHER VESSELS: Normal caliber aorta and IVC. URINARY BLADDER: Normal contour. REPRODUCTIVE ORGANS: Left pelvic ovoid 6.5 x 3.6 cm cystic lesion with interrupted foci of wall calci fications, stable, likely of adnexal origin. MUSCULOSKELETAL: Superior endplate compression deformity at L4, stable. ADDITIONAL FINDINGS: None IMPRESSION: Patchy central predominant airspace opacities, concerning for pneumonitis. Small pleural effusions la rger on the right. Stable left adnexal cystic lesion. Differences in measurements may relate to variance in patient's po sitioning. Small nonobstructing right renal calculi up to 4 mm. Other stable incidental findings including colonic diverticulosis.
--- NOTE | 2024-07-13 12:59 | ER ---
Nurse's Notes [facility] Name: Ludwin Hsu Age: 73 yrs Sex: Male : 1950 Arrival Date: 07/13/2024 Time: 08:33 Bed 8 Private MD: Diagnosis: Weakness;Acute interstitial pneumonitis Presentation: 07/13 08:40 Chief complaint: Patient states: Generalized weakness with fall this morning around ll1 0730. Skin tear L arm, no LOC or head injury. Coronavirus screen: Client denies travel out of the [place] in the last 14 days. At this time, the client does not indicate any symptoms associated with coronavirus-19. Ebola Screen: Patient denies travel to an Ebola-affected area in the 21 days before illness onset. Initial Sepsis Screen: Does the patient meet any 2 criteria? No. Patient's initial sepsis screen is negative. Does the patient have a suspected source of infection? No. Patient's initial sepsis screen is negative. Risk Assessment: Do you want to hurt yourself or someone else? Patient reports no desire to harm self or others. Onset of symptoms was July 13, 2024. 08:40 Method Of Arrival: EMS: [facility] ll1 08:40 Acuity: NGUYEN 2 ll1 Triage Assessment: 08:41 General: Appears uncomfortable, Behavior is calm, cooperative, appropriate for age. ll1 Pain: Complains of pain in right arm Quality of pain is described as aching. Neuro: Reports weakness. Derm: skin tear R FA Reports pain skin tear R arm. Musculoskeletal: Reports weakness in all over. Historical: - Allergies: 08:40 NKA; ll1 - PMHx: 08:40 Atrial fibrillation; diabetes mellitus; CHF; COPD; Hypertensive disorder; ll1 - PSHx: 08:40 Coronary artery bypass graft; pacemaker; ll1 - Immunization history:: Adult Immunizations up to date. - Infectious Disease History:: Denies. - Social history:: Smoking status: Patient denies any tobacco usage or history of. Screenin:17 [facility] ED Fall Risk Assessment (Adult) History of falling in the last 3 months, ll1 including since admission Yes- physiologic fall (2 pts) Confusion or Disorientation No (0 pts) Intoxicated or Sedated No (0 pts) Impaired Gait Yes (1 pt) Mobility Assist Device Used Yes (1 pt) Altered Elimination Yes (1 pt) Score/Fall Risk Level 3 or more points = High Risk Oriented to surroundings, Maintained a safe environment, Hourly rounding (assess needs \T\ fall precautionary measures) done. Abuse screen: Denies threats or abuse. Nutritional screening: No deficits noted. Tuberculosis screening: No symptoms or risk factors identified. Assessment: 09:07 Reassessment: No changes from previously documented assessment. Patient and/or family ll1 updated on plan of care and expected duration. Pain level reassessed. Patient is alert, oriented x 3, equal unlabored respirations, skin warm/dry/pink. 10:59 Reassessment: No changes from previously documented assessment. Patient and/or family ll1 updated on plan of care and expected duration. Pain level reassessed. Patient is alert, oriented x 3, equal unlabored respirations, skin warm/dry/pink. 11:56 Reassessment: No changes from previously documented assessment. Patient and/or family ll1 updated on plan of care and expected duration. Pain level reassessed. Patient is alert, oriented x 3, equal unlabored respirations, skin warm/dry/pink. 14:13 Reassessment: phlebotomy at bedside attempting to obtain Blood cultures. ss 14:42 Reassessment: No changes from previously documented assessment. Patient and/or family ss updated on plan of care and expected duration. Pain level reassessed. Patient is alert, oriented x 3, equal unlabored respirations, skin warm/dry/pink. 14:55 Reassessment: No changes from previously documented assessment. Patient and/or family ss updated on plan of care and expected duration. Pain level reassessed. 15:38 Reassessment: No changes from previously documented assessment. Patient and/or family ss updated on plan of care and expected duration. Pain level reassessed. Lorraine [phone]. 17:05 Reassessment: notified of room 206. Vital Signs: 08:40 BP 133 / 70; Pulse 60; Resp 18; Temp 97.5; Pulse Ox 95% on R/A; Weight 127.01 kg; ll1 Height 6 ft. 0 in. ; Pain 0/10; 10:17 BP 125 / 80; Pulse 60; Resp 18; Pulse Ox 99% on R/A; ll1 11:40 BP 133 / 100; Pulse 62; Pulse Ox 98% on R/A; ap3 12:30 BP 131 / 73; Pulse 99; Resp 18; Pulse Ox 93% ; me1 13:00 BP 134 / 64; Pulse 87; Resp 17; Pulse Ox 94% ; me1 14:00 BP 151 / 85; Pulse 105; Resp 18; Pulse Ox 93% ; me1 14:42 BP 128 / 92; Pulse 60; Resp 18; Pulse Ox 97% on R/A; ss 16:00 BP 102 / 59; Pulse 60; ss 17:05 BP 121 / 77; Pulse 59; Resp 18; Pulse Ox 99% ; Pain 0/10; ss 08:40 Body Mass Index 37.97 (127.01 kg, 182.88 cm) ll1 08:40 Pain Scale: Adult ll1 17:05 Pain Scale: Adult ss ED Course: 08:40 Patient arrived in ED. ll1 08:40 Arm band placed on Patient placed in an exam room, on a stretcher. ll1 08:41 Jose E Moser PA is PHCP. cp 08:41 Nelson Jules MD is Attending Physician. cp 08:41 Triage completed. ll1 08:43 Yogesh Poole, STEPHEN is Primary Nurse. ll1 08:55 Initial lab(s) drawn, by al, sent to lab. Inserted saline lock: 22 gauge in right ll1 antecubital area, using aseptic technique. Blood collected. Flushed with 10 mL NS. 09:01 X-ray completed. Portable x-ray completed in exam room. Patient tolerated procedure 1 well. 09:04 XRAY Chest (1 view) In Process Unspecified. EDMS 09:07 Patient has correct armband on for positive identification. Provided Education on: ER 1 procedures and process. Door closed. Noise minimized. Warm blanket given. PO fluids given. 09:31 CT Head Brain wo Cont In Process Unspecified. EDMS 10:58 Urinalysis W/Microscopic Sent. ll1 11:29 CT Chest Abdomen Pelvis W/O Contrast In Process Unspecified. EDMS 11:56 Troponin HS Sent. ll1 11:56 CK Sent. ll1 12:58 Baldev George MD is Hospitalizing Provider. cp 16:50 No provider procedures requiring assistance completed. Patient admitted, IV remains in ss place. Administered Medications: 09:06 Drug: NS 0.9% IV 500 ml 500 ml IV at 1 bolus once; to be given as a bolus over 60 ll1 minutes Volume: 500 ml; Route: IV; Rate: 1 bolus; Site: right antecubital; 10:58 Follow up: Response: No adverse reaction; IV Status: Completed infusion; IV Intake: ll1 500ml 14:23 Drug: levofloxacin IVPB 500 mg 100 ml IVPB once over 60 mins Volume: 100 ml; Route: ss IVPB; Infused Over: 60 mins; Site: right antecubital; 15:25 Follow up: Response: No adverse reaction; IV Status: Completed infusion; IV Intake: ss 100ml Medication: 10:17 VIS not applicable for this client. ll1 Intake: 10:58 IV: 500ml; Total: 500ml. ll1 15:25 IV: 100ml; Total: 600ml. Outcome: 12:58 Decision to Hospitalize by Provider. cp 16:50 Admitted to Med/surg accompanied by tech, via stretcher, room 206, 16:50 Condition: stable 16:50 Instructed on the need for admit, 17:04 Patient left the ED. Signatures: Dispatcher [employer] EDPR Johanna Gray 1 Sindy Walden RN RN Jose E Moser PA PA cp Andreea Webster RN RN ap3 Yogesh Poole RN RN 1 Brenna Humphries RN RN me1 Corrections: (The following items were deleted from the chart) 09:07 08:40 BP 133 / 70; ll1 ll1
--- NOTE | 2024-07-13 12:59 | EDPHYS ---
Physician Documentation [facility] Name: Ludwin Hsu Age: 73 yrs Sex: Male : 1950 Arrival Date: 07/13/2024 Time: 08:33 Bed 8 Private MD: ED Physician Nelson Jules HPI: 07/13 08:45 This 73 yrs old Male presents to ER via EMS with complaints of General Weakness. cp 08:45 The patient's problem is reported as weakness, that is generalized. Onset: The cp symptoms/episode began/occurred this morning. Duration: The episode is continuous. 08:45 Associated signs and symptoms: Pertinent negatives: abdominal pain, chest pain, cp diarrhea, palpitations, vomiting. Patient's baseline: Neuro: alert and fully oriented, Ambulation: walks with assist only, uses walker, Speech: normal. EMS reports patient with reported fall about 0730 this morning. Patient unable to get up from ground so called EMS. Historical: - Allergies: 08:40 NKA; ll1 - PMHx: 08:40 Atrial fibrillation; diabetes mellitus; CHF; COPD; Hypertensive disorder; ll1 - PSHx: 08:40 Coronary artery bypass graft; pacemaker; ll1 - Immunization history:: Adult Immunizations up to date. - Infectious Disease History:: Denies. - Social history:: Smoking status: Patient denies any tobacco usage or history of. ROS: 08:50 Constitutional: Negative for body aches, chills, fever, poor PO intake, cp 08:50 Cardiovascular: Negative for chest pain, edema, palpitations, cp 08:50 Respiratory: Negative for cough, shortness of breath, wheezing, cp 08:50 Eyes: Negative for injury, pain, redness, and discharge, cp 08:50 ENT: Negative for drainage from ear(s), ear pain, sore throat, difficulty swallowing, difficulty handling secretions, 08:50 Abdomen/GI: Negative for abdominal pain, vomiting, diarrhea, constipation, 08:50 Neuro: Positive for weakness, Negative for altered mental status, dizziness, loss of consciousness, syncope, 08:50 All other systems are negative, Exam: 08:55 Constitutional: The patient appears in no acute distress, alert, awake, cp non-diaphoretic, non-toxic, well developed, well nourished, obese, 08:55 Head/Face: Normocephalic, atraumatic. cp 08:55 Eyes: Periorbital structures: appear normal, Pupils: equal, round, and reactive to light and accomodation, Extraocular movements: intact throughout, Conjunctiva: normal, no exudate, no injection, Sclera: no appreciated abnormality, Lids and lashes: appear normal, bilaterally, 08:55 ENT: External ear(s): are unremarkable, Nose: is normal, Mouth: Lips: dry, Oral mucosa: dry, Posterior pharynx: Airway: no evidence of obstruction, patent, 08:55 Neck: C-spine: vertebral tenderness, is not appreciated, crepitus, is not appreciated, ROM/movement: Meningeal signs: are not present, nuchal rigidity, is not appreciated, 08:55 Chest/axilla: Inspection: normal, Palpation: crepitus, is not appreciated, tenderness, is not appreciated, 08:55 Cardiovascular: Rate: normal, Edema: is not appreciated, JVD: is not appreciated, 08:55 Respiratory: the patient does not display signs of respiratory distress, Respirations: normal, no use of accessory muscles, no retractions, labored breathing, is not present, Breath sounds: are clear throughout, no decreased breath sounds, no stridor, no wheezing, 08:55 Abdomen/GI: Inspection: obese Bowel sounds: active, all quadrants, Palpation: abdomen is soft and non-tender, in all quadrants, 08:55 Back: pain, is absent, vertebral tenderness, is not appreciated, 08:55 Skin: injury, right forearm skin tear, 08:55 Neuro: Orientation: to person, place, situation, Mentation: able to follow commands, Motor: moves all fours, no focal deficits, Sensation: no obvious gross deficits, Vital Signs: 08:40 BP 133 / 70; Pulse 60; Resp 18; Temp 97.5; Pulse Ox 95% on R/A; Weight 127.01 kg; ll1 Height 6 ft. 0 in. ; Pain 0/10; 10:17 BP 125 / 80; Pulse 60; Resp 18; Pulse Ox 99% on R/A; ll1 11:40 BP 133 / 100; Pulse 62; Pulse Ox 98% on R/A; ap3 12:30 BP 131 / 73; Pulse 99; Resp 18; Pulse Ox 93% ; me1 13:00 BP 134 / 64; Pulse 87; Resp 17; Pulse Ox 94% ; me1 14:00 BP 151 / 85; Pulse 105; Resp 18; Pulse Ox 93% ; me1 14:42 BP 128 / 92; Pulse 60; Resp 18; Pulse Ox 97% on R/A; ss 16:00 BP 102 / 59; Pulse 60; ss 17:05 BP 121 / 77; Pulse 59; Resp 18; Pulse Ox 99% ; Pain 0/10; ss 08:40 Body Mass Index 37.97 (127.01 kg, 182.88 cm) ll1 08:40 Pain Scale: Adult ll1 17:05 Pain Scale: Adult ss MDM: 08:41 Medical Screening Exam initiated 09:00 Differential diagnosis: CVA, TIA, metabolic disorder, drug effects, sepsis, uti, acute cp NH, dehydration. 12:35 Data reviewed: vital signs, nurses notes, lab test result(s), EKG, radiologic studies, cp CT scan, plain films, and as a result, I will admit patient. 12:35 I considered the following discharge prescriptions or medication management in the emergency department Medications were administered in the Emergency Department. See MAR. Care significantly affected by the following chronic conditions: Diabetes, Hypertension, Congestive Heart Failure, Chronic Obstructive Pulmonary Disease, Obesity. Counseling: I had a detailed discussion with the patient and/or guardian regarding the historical points, exam findings, and any diagnostic results supporting the discharge/admit diagnosis, lab results, radiology results, the need for further work-up and treatment in the hospital. Response to treatment: the patient's symptoms have mildly improved after treatment. 13:00 Management of patient was discussed with the following: Primary Care Provider: DR Doris hodge who will admit after discussion. 07/13 08:41 Order name: Basic Metabolic Panel; Complete Time: 10:30 07/13 10:30 Interpretation: Normal except: GLUC 180; BUN 29; CRE 1.84; GFR 38. 07/13 08:41 Order name: CBC with Diff; Complete Time: 10:30 07/13 10:30 Interpretation: Normal except: HGB 12.5; HCT 38.8; RDW 16.5; ARMAND% 85.1; LYM% 5.3; NEUT cp A 8.1; LYMA 0.5. 07/13 08:41 Order name: LFT's; Complete Time: 10:30 cp 07/13 10:31 Interpretation: Normal except: AST < 10; ALB 3.0; GLOB 3.6; A/G 0.8. cp 07/13 08:41 Order name: Magnesium; Complete Time: 10:30 cp 07/13 08:41 Order name: NT PRO-BNP; Complete Time: 10:30 cp 07/13 10:31 Interpretation: Abnormal: NT PRO-BNP 2818. cp 07/13 08:41 Order name: PT-INR; Complete Time: 10:30 cp 07/13 08:41 Order name: Troponin HS; Complete Time: 10:30 cp 07/13 11:10 Interpretation: Reviewed. 07/13 08:41 Order name: Lactate w/ 2H reflex if indic.; Complete Time: 10:30 cp 07/13 08:41 Order name: Urinalysis W/Microscopic; Complete Time: 11:09 cp 07/13 11:09 Interpretation: Normal except: UGLUC 4+ (Over); UPROT TRACE. cp 07/13 10:26 Order name: CBC Smear Scan; Complete Time: 10:30 EDNE 07/13 11:12 Order name: COVID-19 Ag + Flu A+B Ag; Complete Time: 12:31 cp 07/13 11:15 Order name: CK; Complete Time: 12:31 cp 07/13 11:15 Order name: Troponin HS; Complete Time: 12:31 cp 07/13 12:58 Order name: Blood Culture Adult (2) cp 07/13 13:47 Order name: Sputum Culture EDNE 07/13 08:41 Order name: XRAY Chest (1 view); Complete Time: 10:30 cp 07/13 09:04 Order name: CT Head Brain wo Cont; Complete Time: 10:57 cp 07/13 10:57 Interpretation: Report reviewed. cp 07/13 11:12 Order name: CT Chest Abdomen Pelvis W/O Contrast; Complete Time: 12:31 cp 07/13 13:47 Order name: Physical Therapy Consult EDNE 07/13 08:41 Order name: Cardiac monitoring; Complete Time: 09:06 cp 07/13 08:41 Order name: EKG - Nurse/Tech; Complete Time: 09:06 cp 07/13 08:41 Order name: IV Saline Lock; Complete Time: 08:50 cp 07/13 08:41 Order name: Labs collected and sent; Complete Time: 08:50 cp 07/13 08:41 Order name: O2 Per Protocol; Complete Time: 08:43 cp 07/13 08:41 Order name: O2 Sat Monitoring; Complete Time: 08:43 cp Administered Medications: 09:06 Drug: NS 0.9% IV 500 ml 500 ml IV at 1 bolus once; to be given as a bolus over 60 ll1 minutes Volume: 500 ml; Route: IV; Rate: 1 bolus; Site: right antecubital; 10:58 Follow up: Response: No adverse reaction; IV Status: Completed infusion; IV Intake: ll1 500ml 14:23 Drug: levofloxacin IVPB 500 mg 100 ml IVPB once over 60 mins Volume: 100 ml; Route: ss IVPB; Infused Over: 60 mins; Site: right antecubital; 15:25 Follow up: Response: No adverse reaction; IV Status: Completed infusion; IV Intake: ss 100ml Disposition: 07/14 08:21 Co-signature as Attending Physician, Nelson Jules MD I reviewed the patient's care rn provided by the Advanced Practice Provider and agree with the diagnosis and treatment plan. 15:13 Chart complete. cp Disposition Summary: 07/13/24 12:58 Hospitalization Ordered Notes: Hospitalization Status: Inpatient Admission cp Provider: Baldev George cp Condition: Stable cp Problem: new cp Symptoms: have improved cp Bed/Room Type: Standard cp Location: Telemetry/MedSurg (Inpatient)(07/13/24 16:14) bd Room Assignment: [facility](07/13/24 16:14) bd Diagnosis - Weakness cp - Acute interstitial pneumonitis cp Forms: - Medication Reconciliation Form cp - SBAR form cp - Leadership Thank You Letter cp Signatures: Dispatcher [employer] EDSydney Connelly Roman, MD MD rn Blanchard, Shelby, RN RN Jose E Escalante PA PA cp Yogesh Poole RN RN ll1 Corrections: (The following items were deleted from the chart) 03 08:42 08:42 BASIC METABOLIC PANEL+C.LAB.BRZ ordered. EDMS EDMS 08:42 08:42 CBC+H.LAB.BRZ ordered. EDMS EDMS 08:42 08:42 HEPATIC FUNCTION+C.LAB.BRZ ordered. EDMS EDMS 08:42 08:42 MAGNESIUM+C.LAB.BRZ ordered. EDMS EDMS 08:42 08:42 PROBNP+C.LAB.BRZ ordered. EDMS EDMS 08:42 08:42 PROTIME (+INR)+COAG.LAB.BRZ ordered. EDMS EDMS 08:42 08:42 Troponin High Sensitivity+C.LAB.BRZ ordered. EDMS EDMS 08:42 08:42 LACTATE+C.LAB.BRZ ordered. EDMS EDMS 08:42 08:42 Urinalysis W/Microscopic+U.LAB.BRZ ordered. EDMS EDMS 08:42 08:42 Chest Single View+RAD.RAD.BRZ ordered. EDMS EDMS 11:13 11:13 COVID-19 Ag + Flu A+B Ag+I.LAB.BRZ ordered. EDMS EDMS 12:59 12:59 BLOOD CULTURE*+BA.LAB.BRZ ordered. EDMS EDMS 14:48 12:58 Telemetry/MedSurg (Inpatient) cp bd 14:48 12:58 cp bd 16:14 14:48 BR ER HOLD bd bd 16:14 14:48 ERHOLD- bd bd
[2024-07-13] MEDS: Levofloxacin500mg IV 500 MG/100 ML BAG IV ONE (15:00)
[2024-07-13] MEDS ORDERED: HOME MED 1 EA UNK (Glipizide [Glipizide] 10 MG Tablet) PO PRN (18:15)
--- NOTE | 2024-07-13 18:26 | P.HP ---
Patient History Date of Service: 07/13/24 Reason for admission: WEAKNESS, COULD NOT WALK, FELL DOWN History of Present Illness: OLIVIA IS 73 YO GM WHO IS DECONITIONED FROM OBESITY, CHF, COPD AND A FIB. HE GOT WEAK, FELL DOWN AND COULD NOT WALK. HE HAS NO CHEST PAIN OR ANY MORE DYSPNEA THAN USUAL. HE IS GENERALLY WEAK. Allergies No Known Allergies Allergy (Verified 01/13/21 22:24) Home medications list reviewed: Yes Home Medications: Magnesium Oxide 400 mg PO BID 05/11/22 Metoprolol Succinate [Toprol Xl*] 12.5 mg PO DAILY PRN 05/11/22 Potassium Chloride [Klor-Con 10] 40 meq PO DAILY 11/21/22 glipiZIDE [Glipizide] 5 mg PO DAILY PRN 11/21/22 Apixaban [Eliquis] 5 mg PO BID 01/28/24 Aripiprazole [Abilify] 30 mg PO DAILY 01/28/24 Empagliflozin [Jardiance] 25 mg PO DAILY 01/28/24 Gabapentin [Neurontin*] 2 tab PO BEDTIME 01/28/24 Trazodone HCl 2 tab PO BEDTIME 01/28/24 Clotrim/Betameth Cream [Lotrisone Cream*] 1 appl TOP DAILY #1 tube 01/31/24 Amiodarone HCl [Cordarone*] 200 mg PO BID 03/19/24 Spironolactone 50 mg PO DAILY #90 tab 03/20/24 Ensure Max Protein 330 ml PO BIDAC #60 can 06/11/24 Furosemide [Lasix*] 40 mg PO BIDAC #60 tab 06/11/24 - Past Medical/Surgical History Has patient received pneumonia vaccine in the past: Yes Diabetic: Yes -: Hypertension -: Diabetes mellitus type 2 -: Posttraumatic stress disorder -: Anxiety -: Hepatitis-C -: Hyperlipidemia -: CAD, stent placement x2, atrial fibrillation, chronic diastolic CHF -: Obstructive sleep apnea -: Obesity -: Diabetic neuropathy -: History pancreatitis -: COPD, tobacco abuse -: 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 - Family History Father -: Other (see notes) Notes: CHF Mother -: Cancer Notes: breast cancer Sister -: Cancer Notes: colon cancer Brother -: Cancer Notes: throat cancer - Social History Smoking Status: Never smoker Alcohol use: No CD- Drugs: No Caffeine use: Yes Place of Residence: Home Review of Systems 10-point ROS is otherwise unremarkable General: Weakness Physical Examination - Vital Signs Temperature: 97.9 F Blood Pressure: 124/63 Pulse: 60 Respirations: 16 Pulse Ox (%): 97 - Physical Exam General: Oriented x3, Mild distress, Obese HEENT: Atraumatic, PERRLA, Mucous membr. moist/pink, EOMI, Sclerae nonicteric Neck: Supple, 2+ carotid pulse no bruit, No LAD, Without JVD or thyroid abnormality Respiratory: Clear to auscultation bilaterally, Normal air movement Cardiovascular: Regular rate/rhythm, Normal S1 S2 Gastrointestinal: Normal bowel sounds, No tenderness Musculoskeletal: No tenderness Integumentary: No rashes Neurological: Normal gait, Normal speech, Normal strength at 5/5 x4 extr, Normal tone, Normal affect Lymphatics: No axilla or inguinal lymphadenopathy - Studies Laboratory Data (last 24 hrs) 07/13/24 07/13/24 07/13/24 08:47 08:47 08:47 WBC 9.50 Hgb 12.5 L Hct 38.8 L Plt Count 193 PT 15.7 H INR 1.40 Sodium 139 Potassium 3.5 BUN 29 H Creatinine 1.84 H Glucose 180 H Magnesium 2.1 Total Bilirubin 0.6 AST < 10 L ALT 18 Alkaline Phosphatase 77 Assessment and Plan - Problems (Diagnosis) (1) General weakness Current Visit: Yes Status: Acute Plan: HE HAS NO SIGNS OF PNEUMONIA BUT HAS X RAY FINDING OF MILD PNEUMONIA. START CEFEPIME IV WITH AMIODARONE HE CAN'T TAKE LEVAQUIN. PT CONSULT MRI IN AM BRAIN. (2) Pneumonitis Current Visit: Yes Status: Acute Plan: ABOVE (3) CKD stage 4 due to type 2 diabetes mellitus Current Visit: No Status: Chronic Plan: CREAT ELEVATION CAN BE FROM DIURETICS. (4) COPD (chronic obstructive pulmonary disease) Current Visit: No Status: Chronic Qualifiers: (5) Cor pulmonale Current Visit: No Status: Chronic - Advance Directives Does patient have a Living Will: No Does patient have a Durable POA for Healthcare: No
[2024-07-13] MEDS ORDERED: glipiZIDE 5 MG TAB PO PRN (18:28)
[2024-07-13] MEDS: APIXABAN 5 MG TABLET PO SCH (20:05)
[2024-07-13] MEDS: GABAPENTIN 400 MG CAP PO SCH (20:05)
[2024-07-13] MEDS: AMIODARONE HCL 200 MG TAB PO SCH (20:05)
[2024-07-13] MEDS: CEFEPIME 2 GM in NA CHLORIDE 0.9% 100 ML IV SCH (20:05)
[2024-07-13] MEDS ORDERED: HOME MED 1 EA UNK (Trazodone Hcl [Trazodone Hcl] 100 MG Tablet) PO SCH (21:00)
[2024-07-13] MEDS: TRAZODONE 150 MG TAB PO SCH (21:22)
[2024-07-13] MEDS: TRAZODONE 50 MG TABLET PO SCH (21:22)
[2024-07-14] MEDS ORDERED: CEFEPIME 2 GM in NA CHLORIDE 0.9% 100 ML IV SCH (01:00)
[2024-07-14] MEDS: FUROSEMIDE 40 MG TABLET PO SCH (08:26)
[2024-07-14] MEDS: SPIRONOLACTONE 25 MG TABLET PO SCH (08:27)
[2024-07-14] MEDS: POTASSIUM CL SA 10 MEQ TAB PO SCH (08:27)
[2024-07-14] MEDS: Empagliflozin [Jardiance] 25 MG Tablet *PT OWN MED PO SCH (08:28)
[2024-07-14] MEDS: ARIPIPRAZOLE 30 MG PO SCH (08:28)
[2024-07-14 08:44] LABS: Absolute Eosinophils 0.2 K/uL (0-0.5); Absolute Lymphocytes (CBC) 0.9 K/uL (0.7-4.9); Absolute Monocytes 0.9 K/uL (0.1-1.3); Absolute Neutrophil 6.3 K/uL (1.8-8.0); Basophils % 0.6 % (0-1.3); Eosinophils % 2.2 % (0-4.4); Hematocrit 38.7 % (39.6-49.0); Hemoglobin 12.9 g/dL (13.6-17.9); Lymphocytes % 10.6 % (15.3-44.8); MCH 28.3 pg (27.0-35.0); MCHC 33.4 g/dL (32.0-36.0); MCV 84.8 fL (80-100); MPV 8.3 fL (7.6-11.3); Monocytes % 10.8 % (3.3-12.3); Neutrophils % 75.8 % (41.7-73.7); Platelets 169 thou/uL (152-406); RBC Red Blood Cell Count 4.57 M/uL (4.33-5.43); Red Cell Distribution Width 16.8 % (12.1-15.2)
[2024-07-14 08:54] LABS: Anion Gap 6.9 mEq/L (5.0-15.0); Potassium 3.9 mEq/L (3.5-5.1)
--- NOTE | 2024-07-14 11:02 | EKG ---
Test Date: 2024-07-13 Test Time: 08:02:11 Supervisor Fine Grading: LML MEASUREMENT RESULTS: Intervals: Rate: 60 VA: QRSD: 236 QT: 612 QTc: 612 Warren: P: VA: QRS: -68 T: 48 INTERPRETIVE STATEMENTS: Electronic ventricular pacemaker Compared to ECG 06/17/2024 08:10:43 No significant changes Electronically Signed On 07-14-24 10:57:49 CDT by Maicol Crooks
--- NOTE | 2024-07-14 13:18 | P.PN ---
Subjective Date of Service: 07/14/24 Chief Complaint: WEAKNESS, COULD NOT WALK, FELL DOWN Subjective: Improving HE IS STABLE GEN WEAK HE HAS NO NEW RESP SS. Review of Systems 10-point ROS is otherwise unremarkable Physical Examination - Vital Signs Temperature: 97.9 F Blood Pressure: 120/56 Pulse: 66 Respirations: 13 Pulse Ox (%): 93 - Physical Exam General: Alert, In no apparent distress, Obese HEENT: Atraumatic, PERRLA, EOMI Neck: Supple, JVD not distended Respiratory: Clear to auscultation bilaterally, Normal air movement Cardiovascular: Regular rate/rhythm, Normal S1 S2 Gastrointestinal: Normal bowel sounds, No tenderness Musculoskeletal: No tenderness Integumentary: No rashes Neurological: Normal speech, Normal tone, Normal affect Lymphatics: No axilla or inguinal lymphadenopathy - Studies Medications List Reviewed: Yes Assessment And Plan - Current Problems (Diagnosis) (1) General weakness Current Visit: Yes Status: Acute Plan: HE HAS NO SIGNS OF PNEUMONIA BUT HAS X RAY FINDING OF MILD PNEUMONIA. START CEFEPIME IV WITH AMIODARONE HE CAN'T TAKE LEVAQUIN. PT CONSULT MRI IN AM BRAIN. REFER TO REHAB. MRI BRAIN TODAY. (2) Pneumonitis Current Visit: Yes Status: Acute Plan: ABOVE (3) CKD stage 4 due to type 2 diabetes mellitus Current Visit: No Status: Chronic Plan: CREAT ELEVATION CAN BE FROM DIURETICS. (4) COPD (chronic obstructive pulmonary disease) Current Visit: No Status: Chronic Qualifiers: (5) Cor pulmonale Current Visit: No Status: Chronic
[2024-07-14 16:19] VITALS: BMI 38.0
[2024-07-14] MEDS: INSULIN REGULAR (HUMAN) 100 UNIT/ML SQ SCH (22:45)
[2024-07-15] MEDS: MAGNESIUM OXIDE 400 MG TAB PO SCH (09:21)
--- NOTE | 2024-07-15 17:27 | P.PN ---
Subjective Date of Service: 07/15/24 Chief Complaint: WEAKNESS, COULD NOT WALK, FELL DOWN Subjective: No C/O voiced HE IS STABLE GEN WEAK HE HAS NO NEW RESP SS. NOT DOING MUCH PT NEEDS REHAB IS APPROVED. HE HAD NO NEW SS OF LUNGS OR HEART. Review of Systems 10-point ROS is otherwise unremarkable General: Weakness, Malaise Physical Examination - Vital Signs Temperature: 98.2 F Blood Pressure: 158/70 Pulse: 73 Respirations: 16 Pulse Ox (%): 92 - Physical Exam General: Oriented x3, Mild distress, Obese HEENT: Atraumatic, PERRLA, EOMI Neck: Supple, JVD not distended Respiratory: Clear to auscultation bilaterally, Normal air movement Cardiovascular: Regular rate/rhythm, Normal S1 S2 Gastrointestinal: Normal bowel sounds, No tenderness Musculoskeletal: No tenderness Integumentary: No rashes Neurological: Normal speech, Normal tone, Normal affect Lymphatics: No axilla or inguinal lymphadenopathy - Studies Medications List Reviewed: Yes Assessment And Plan - Current Problems (Diagnosis) (1) General weakness Current Visit: Yes Status: Acute Plan: HE HAS NO SIGNS OF PNEUMONIA BUT HAS X RAY FINDING OF MILD PNEUMONIA. START CEFEPIME IV WITH AMIODARONE HE CAN'T TAKE LEVAQUIN. PT CONSULT MRI IN AM BRAIN. REFER TO REHAB. MRI BRAIN TODAY. (2) Pneumonitis Current Visit: Yes Status: Acute Plan: ABOVE CONT ORAL ABX HE HAS NO SS FROM THIS CT FINDING. (3) CKD stage 4 due to type 2 diabetes mellitus Current Visit: No Status: Chronic Plan: CREAT ELEVATION CAN BE FROM DIURETICS. (4) COPD (chronic obstructive pulmonary disease) Current Visit: No Status: Chronic Qualifiers: (5) Cor pulmonale Current Visit: No Status: Chronic (6) Debilitated Current Visit: Yes Status: Chronic Plan: HE IS OBESE, DECONDITIONED AND DOES NOT EAT RIGHT. REFER TO REHAB.
[2024-07-15] MEDS: AMOX/K CLAV 875 MG TAB PO SCH (21:28)
[2024-07-15] MEDS ORDERED: INSULIN REGULAR (HUMAN) 100 UNIT/ML SQ SCH (22:15)
[2024-07-16] MEDS: METOPROLOL XL 25 MG TAB PO PRN (05:16)
[2024-07-16 08:22] VITALS: BP 132/61; TEMP 97.9
[2024-07-16 10:18] VITALS: O2SAT 98
--- NOTE | 2024-07-16 13:09 | P.DS ---
Admission Date: 07/13/24 Discharge Date: 07/16/24 Disposition: TRANSFER TO INPATIENT REHAB Reason for Admission: WEAKNESS, COULD NOT WALK, FELL DOWN - Problems (1) General weakness Status: Acute (2) Pneumonitis Status: Acute (3) CKD stage 4 due to type 2 diabetes mellitus Status: Chronic (4) COPD (chronic obstructive pulmonary disease) Status: Chronic Qualifiers: (5) Cor pulmonale Status: Chronic (6) Debilitated Status: Chronic Brief History of Present Illness: OLIVIA IS 73 YO GM WHO IS DECONITIONED FROM OBESITY, CHF, COPD AND A FIB. HE GOT WEAK, FELL DOWN AND COULD NOT WALK. HE HAS NO CHEST PAIN OR ANY MORE DYSPNEA THAN USUAL. HE IS GENERALLY WEAK. Hospital Course: MR WRIGHT IS DECONDITIONED, MORBIDLY OBESE GM WITH COPD,CHF AND A FIB WITH DM. HE COMES WEAK. HE HAS QUESTIONABLE PNEUMONIA. HE IS STABLE TO GO TO REHAB FOR PT. Vital Signs/Physical Exam: Temp Pulse Resp BP Pulse Ox 97.9 F 61 14 132/61 92 07/16/24 08:00 07/16/24 09:24 07/16/24 08:00 07/16/24 09:24 07/16/24 08:00 Laboratory Data at Discharge: WBC 8.40 thou/uL (4.3-10.9) 07/14/24 08:27 Hgb 12.9 g/dL (13.6-17.9) L 07/14/24 08:27 Hct 38.7 % (39.6-49.0) L 07/14/24 08:27 Plt Count 169 thou/uL (152-406) 07/14/24 08:27 PT 15.7 SECONDS (10-13.0) H 07/13/24 08:47 INR 1.40 07/13/24 08:47 Sodium 140 mEq/L (136-145) 07/14/24 08:27 Potassium 3.9 mEq/L (3.5-5.1) 07/14/24 08:27 BUN 26 mg/dL (7-18) H 07/14/24 08:27 Creatinine 1.55 mg/dL (0.70-1.30) H 07/14/24 08:27 Glucose 139 mg/dL (74-106) H 07/14/24 08:27 Magnesium 2.1 mg/dL (1.6-2.4) 07/13/24 08:47 Total Bilirubin 0.6 mg/dL (0.2-1.0) 07/13/24 08:47 AST < 10 U/L (15-37) L 07/13/24 08:47 ALT 18 U/L (16-61) 07/13/24 08:47 Alkaline Phosphatase 77 U/L (45-117) 07/13/24 08:47 Home Medications: Magnesium Oxide 400 mg PO BID 05/11/22 Metoprolol Succinate [Toprol Xl*] 12.5 mg PO DAILY PRN 05/11/22 Potassium Chloride [Klor-Con 10] 40 meq PO BID 11/21/22 glipiZIDE [Glipizide] 5 mg PO DAILY PRN 11/21/22 Apixaban [Eliquis] 5 mg PO BID 01/28/24 Aripiprazole [Abilify] 30 mg PO DAILY 01/28/24 Empagliflozin [Jardiance] 25 mg PO DAILY 01/28/24 Gabapentin [Neurontin*] 2 tab PO BEDTIME 01/28/24 Trazodone HCl 2 mg PO BEDTIME 01/28/24 Clotrim/Betameth Cream [Lotrisone Cream*] 1 appl TOP DAILY #1 tube 01/31/24 Amiodarone HCl [Cordarone*] 200 mg PO BID 03/19/24 Spironolactone 50 mg PO DAILY #90 tab 03/20/24 Ensure Max Protein 330 ml PO BIDAC #60 can 06/11/24 Furosemide [Lasix*] 40 mg PO BIDAC #60 tab 06/11/24 Followup: Baldev George MD [Primary Care Provider] - 1-2 Weeks
== END 2024-07-16 10:34 | DRG 194 ==
LOC: ER 08:33 → ERHOLD 13:42 → 2ND 17:01
PROVIDERS: ADMIT Internal Medicine; ATTEND Internal Medicine
DX: J18.9 Pneumonia, unspecified organism (principal); I13.0 Hypertensive heart and chronic kidney disease with heart failure and stage 1 through stage 4 chronic kidney disease, or unspecified chronic kidney disease; I50.32 Chronic diastolic (congestive) heart failure; J84.114 Acute interstitial pneumonitis; J44.0 Chronic obstructive pulmonary disease with (acute) lower respiratory infection; N18.4 Chronic kidney disease, stage 4 (severe); E11.22 Type 2 diabetes mellitus with diabetic chronic kidney disease; I48.91 Unspecified atrial fibrillation; I27.81 Cor pulmonale (chronic); E66.01 Morbid (severe) obesity due to excess calories; F43.10 Post-traumatic stress disorder, unspecified; E11.40 Type 2 diabetes mellitus with diabetic neuropathy, unspecified; Z95.0 Presence of cardiac pacemaker; Z95.1 Presence of aortocoronary bypass graft; Z11.52 Encounter for screening for COVID-19; Z79.01 Long term (current) use of anticoagulants; Z95.5 Presence of coronary angioplasty implant and graft; Z68.38 Body mass index [BMI] 38.0-38.9, adult; Z79.84 Long term (current) use of oral hypoglycemic drugs; Z79.899 Other long term (current) drug therapy
CPT/HCPCS: 36415; 70450; 71045; 71250; 74176; 80048; 80076; 81001; 82550; 82947; 83605; 83735; 83880; 84145; 84484; 85025; 85610; 87040; 87428; 93005; 96361; 96365; 97116; 97161; 99285; J0692; J1815; J7040

== ENCOUNTER 2024-07-16 08:42 | Inpatient (IN) | payer OTHER ==
[2024-07-16] MEDS: INSULIN REGULAR (HUMAN) 100 UNIT/ML SQ SCH (11:30)
[2024-07-16 11:48] VITALS: BMI 38.0
[2024-07-16 13:02] LABS: Specific Gravity 1.024 (1.005-1.030); Sqamous Epithelial <5 /HPF (None Seen); Urine Bacteria None Seen /HPF (<20); Urine Bilirubin NEGATIVE (Negative); Urine Blood Negative (Negative); Urine Clarity Clear (Clear); Urine Color Light-Yellow (Yellow); Urine Culture Reflex Order NOT NEEDED; Urine Glucose 4+ (Over) (Negative); Urine Ketones NEGATIVE (Negative); Urine Micro Reflex YN NO BILL MICROSCOPIC; Urine Nitrite NEGATIVE (Negative); Urine Protein TRACE (Negative); Urine RBC None Seen /HPF (None Seen); Urine Urobilinogen Normal (Normal); Urine WBC <5 /HPF (<5); Urine Yeast (Budding) Trace /HPF (None Seen); Urine pH 6.5 (5.0-7.0)
--- NOTE | 2024-07-16 17:25 | RAD REPORT ---
EXAMINATION: ONE VIEW CHEST XR CLINICAL INDICATION: pnuemonia TECHNIQUE: Frontal chest projection is submitted. Examination is limited by patient positioning and t echnique. COMPARISON: 07/13/2024 FINDINGS: Interstitial opacities bilaterally have a generally chronic appearance however may represent chronic pulmonary edema. The heart is upper limit of normal in size. No displaced fractures identified. Sternotomy. Dual-lead pacer device. IMPRESSION: Chronic mild CHF pattern is favored.
[2024-07-16] MEDS: FUROSEMIDE 40 MG TABLET PO SCH (17:37)
[2024-07-16] MEDS: ENSURE COMPACT 118 ML LIQUID PO SCH (20:00)
[2024-07-16] MEDS: TRAZODONE 50 MG TABLET PO SCH ×2 (21:00→22:05)
[2024-07-16] MEDS: ARIPiprazole 5 MG TAB PO SCH ×2 (21:00→22:11)
[2024-07-16] MEDS ORDERED: TRAZODONE 50 MG TABLET ONE (21:58)
[2024-07-16] MEDS: GABAPENTIN 400 MG CAP PO SCH (22:00)
[2024-07-16] MEDS: POTASSIUM CL SA 10 MEQ TAB PO SCH (22:00)
[2024-07-16] MEDS: MAGNESIUM OXIDE 400 MG TAB PO SCH (22:01)
[2024-07-16] MEDS: APIXABAN 5 MG TABLET PO SCH (22:01)
[2024-07-16] MEDS: AMIODARONE HCL 200 MG TAB PO SCH (22:01)
[2024-07-16] MEDS: AMOX/K CLAV 875 MG TAB PO SCH (22:01)
[2024-07-16] MEDS: NYSTATIN 100MU/GM CREAM 15GM TOP SCH (22:01)
--- NOTE | 2024-07-17 02:26 | HP ---
Date of Admission: 07/16/2024 Chief Complaint: "I fell. My legs gave out. I hit my right arm." History Of Present Illness: Mr. Hsu is a 73-year-old patient with hypertension, diabetes mellitu s type 2, posttraumatic stress disorder with anxiety, hepatitis C, dyslipidemia, atrial fibrillation, coronary artery disease with stent placement, obstructive sleep apnea, diabetic peripheral neuropath y, COPD, tobacco abuse, who was at home in a single-story home when on the he was trying to get up and move around, and became actually weak in the lower extremities. When he attempted to get up a nd walk to his kitchen, legs gave out and he fell on the floor landing on his right arm. He was unab le to move the right arm. His was unable to assist him up and she called 911. He was brought b y Emergency Department to the hospital for medical evaluation. He was found to have diffuse generali zed weakness with pneumonitis, stage 4 kidney disease, diabetes mellitus, COPD, cor pulmonale with de bility. He received IV fluids, antibiotics for systemic infection, he received cefepime. He had ami odarone for heart rate and blood pressure control, diuretics including Lasix. He did have carb-stead y diet and insulin given to manage blood sugars. Received anticoagulation with Eliquis for the fibri llation and had the wound dressed in the right forearm. His course was complicated by decreased mobi lity, decreased physical functioning, elevated respiratory rate, high blood pressure, and low hemoglo bin and hematocrit, and again the elevated creatinine for stage 4 kidney disease. He was seen by Dr. George and managed by his primary care physician, Dr. George. Prior to his fall, he was independent w ith all mobilization and not consistently using an assistive device. He may use furniture to ambulat e and move around. He was able to drive and did meet monthly with his car club. Currently, he is at moderate to maximum assistance with most functional transfers. He is only able to ambulate about 15 feet due to weakness with a rolling walker and is significantly debilitated. He is functioning well below his baseline and is therefore an appropriate candidate for inpatient rehabilitation to help hi m return to his prior level of functioning and reduce risk of re-hospitalization. Past Medical History: As noted above. 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 He had angioplasty in 1989. Cardiac stents place d in 2013. Pacemaker placed. He had 3-vessel cardiac bypass. Allergies: NO KNOWN DRUG ALLERGIES. Medications: Cordarone 200 mg twice daily, Augmentin 875/125 twice daily and managed by Agnes Wadsworth liquis 5 mg twice daily, Abilify 10 mg at bedtime, Lasix 40 mg twice daily, gabapentin 800 mg at bedt michelle, glipizide 5 mg daily. He has magnesium oxide 400 mg twice daily. Nicotine patch 14 mg daily, p otassium 20 mEq twice daily. He has Ensure Enlive twice daily, Aldactone 50 mg daily, Richi yrel 50 mg at bedtime. X-ray/imaging: On the , x-ray shows chest, patchy infiltrates and prominence of the central vasc ulature, could suggest mild venous congestion or atypical pneumonia. Head CT scan on 07/13, no acute intracranial abnormalities. Chest, abdomen and pelvis CT scan on 07/13, patchy central predominant airspace opacity concerning for pneumonitis. Small pleural effusions, larger on the right. Stable l eft adnexal cystic lesion. Small nonobstructive right renal calculi up to 4 mm. Family History: Noncontributory. Laboratory Studies: His blood sugar is 179. White blood cell count 8.4, hemoglobin 12.9, hematocrit 38.7, platelets 169. Sodium 140, potassium 3.9, BUN 29, creatinine 1.55, calcium 9.5. Review of Systems: Some mild pain in the right arm. He has a bandage there. He wants it to be changed tomorrow; it was changed yesterday. Otherwise, mild myalgias and arthralgias, and diffuse weakness in the lower and upper extremities. No other complaints in terms of review of systems. Current Level Of Functioning: Currently, he is at setup assistance level for eating, grooming. Also , moderate assistance for bathing. Upper and lower body dressing is supervision. Donning/doffing fo otwear, moderate assistance. Ambulation, moderate assistance. Ambulated just 15 feet with moderate assistance. His expression is without difficulty with expression and clear comprehension as well. Physical Examination: Vital Signs: Blood pressure 115/64, pulse 64, respiratory rate 18, temperature 98.2, oxygen saturati on 92%. Weight 280 pounds, height 6 feet, BMI 38.0. General: Mr. Hsu again is sitting in a chair beside the bed. HEENT: He is normocephalic, atraumatic. Sclerae anicteric. Skin: His right forearm is bandaged, where he did have a bruise. There was again no fracture there. Lungs: Otherwise, clear to auscultation. Heart: Irregularly irregular. Extremities: Showed no significant clubbing, cyanosis, or edema. There is diffuse weakness in the l ower and upper extremities, 4+ proximally and distally. Rehab And Medical Assessment: Mr. Hsu is a 73-year-old patient, admitted to the inpatient rehabi litation unit with impairment category 15, pulmonary. His impairment group code is 10.9, other pulmo nary. His etiologic diagnosis is pneumonitis. His comorbid conditions include decreased mobility; d ecreased physical functioning; hypertension; diabetes mellitus type 2; posttraumatic stress disorder; anxiety; hepatitis C; dyslipidemia; coronary artery disease, status post multiple stent placement; a trial fibrillation; diastolic congestive heart failure; obesity class 2; diabetic peripheral neuropat hy; history of pancreatitis; COPD; tobacco abuse. Plan: He will have physical, occupational, and if need be speech therapy 3.5 hours, 5 of 7 days. We will continue with anticoagulation for DVT risk reduction and stroke risk reduction with Eliquis 5 m g twice daily. Abilify for his PTSD 10 mg at bedtime. Amiodarone for heart rate control. Lasix for fluid management. Gabapentin for neuropathic pain. Glipizide for his diabetic blood sugar control. He has nicotine patch for tobacco dependency. Potassium replacement on board. He has Ensure for m alnutrition. Desyrel for insomnia. Comorbidities That Are Impacting Rehabilitation: Significant debility is of course the reason he is in with weakness and legs giving out, so fall precautions to be adhered to at all times as he has hig h risk of falling, gait belt with rolling walker, and chair in tow whenever he is doing his therapy. Also, there is a risk of continued infection. Dr. George is following him for that. He has antibiot ics on board and repeat chest x-ray will be done. Rehab Specific Plan: Mr. Hsu will have physical and occupational therapy and if need be speech t herapy to help him with his ability to transfer from bed to chair to toilet to shower, to be able to do it safely; to be able to dress upper and lower body, don and doff footwear, and do activities of d aily living safely. Mr. Hsu has a good understanding of the process of admission to the inpatient rehabilitation unit and how he will benefit from physical, occupational, and speech therapy. He will have 24 hours a da y, 7 days a week skilled rehabilitation nursing; daily physician evaluation and management; and [facility] Service evaluation and management for discharge planning, to have equipment sent home as need be, a nd to continue with therapy and follow up with his physician. If need be, additional help will be so ught although the patient will be seen by Dr. George, his primary care physician. Barriers To Discharge: The patient does live with his . He is of course significantly weak and if she is unable to help him off the floor as he is a heavier person at 280 pounds, he may require ex tended stay for him to improve and that may have to be at [facility]. Length Of Stay: About 12 to 14 days. Disposition: Expected to be home and he should continue therapy via Home Health, Physical and Occupa tional Therapy at least. Prognosis: Good. Code Status: Full Code. Rehab Specific Goals: 1. Become independent with upper and lower body dressing and donning/doffing footwear. 2. Independently ambulate 250 feet with a rolling walker. 3. Independently propel a wheelchair 250 feet. 4. Independently go up and down 10 steps with bilateral handrails. 5. Independently perform all activities of daily living. 6. Independently perform all cognitive functioning including for safety awareness. The above goals were reviewed with Mr. Hsu and he is in agreement. By signing this document, I acknowledge I personally performed a full physical examination on Mr. Naheed tom no later than 24 hours after his admission to the inpatient rehabilitation unit and determined t hat he is able to tolerate the above course of treatment at an intensive level for reasonable period of time. A detailed individualized plan of care for him will be completed by hospital day 4 based on the preadmission screen, history and physical, and therapy evaluations. RODOLFO/PARTH Voice ID: [id number]
[2024-07-17 06:46] LABS: Absolute Basophils 0.1 K/uL (0-0.5); Absolute Eosinophils 0.3 K/uL (0-0.5); Absolute Lymphocytes (CBC) 1.3 K/uL (0.7-4.9); Absolute Monocytes 0.8 K/uL (0.1-1.3); Absolute Neutrophil 5.3 K/uL (1.8-8.0); Eosinophils % 3.5 % (0-4.4); Hematocrit 40.7 % (39.6-49.0); Hemoglobin 13.3 g/dL (13.6-17.9); Lymphocytes % 16.8 % (15.3-44.8); MCH 27.8 pg (27.0-35.0); MCHC 32.7 g/dL (32.0-36.0); MCV 85.1 fL (80-100); MPV 7.9 fL (7.6-11.3); Monocytes % 10.7 % (3.3-12.3); Nucleated Red Blood Cells % 0.1 % (0-0); Platelets 238 thou/uL (152-406); RBC Red Blood Cell Count 4.78 M/uL (4.33-5.43); Red Cell Distribution Width 16.5 % (12.1-15.2)
[2024-07-17 07:07] LABS: Albumin 2.9 g/dL (3.4-5.0); Anion Gap 8.1 mEq/L (5.0-15.0); Magnesium 2.5 mg/dL (1.6-2.4); Potassium 4.1 mEq/L (3.5-5.1); Prealbumin 13.7 mg/dL (20-40)
[2024-07-17] MEDS: HOME MED 1 EA UNK (Jardiance 25 MG) PO SCH (08:00)
[2024-07-17] MEDS: FUROSEMIDE 40 MG TABLET PO SCH (08:40)
[2024-07-17] MEDS: SPIRONOLACTONE 25 MG TABLET PO SCH (08:41)
[2024-07-17] MEDS: glipiZIDE 5 MG TAB PO SCH (08:42)
[2024-07-17] MEDS: NICOTINE 14 MG/PAT TD SCH (08:46)
[2024-07-17] MEDS: TRAMADOL HCL 50 MG TAB PO PRN (15:42)
--- NOTE | 2024-07-17 17:20 | P.RH.PN ---
Estimated Length of Stay: 15 Expected Discharge Date: 07/29/24 Discharge Disposition Plan: Home Family Support: Yes Senior Living Goal: Mobility, Transfers, Self Care Vital Signs: Last Vital Signs Temp 97.6 F 07/17/24 08:00 Pulse 62 07/17/24 08:41 Resp 20 07/17/24 08:00 BP 136/63 07/17/24 08:41 Pulse Ox 95 07/17/24 08:00 Laboratory: Laboratory Last Values WBC 7.80 thou/uL (4.3-10.9) 07/17/24 06:19 RBC 4.78 M/uL (4.33-5.43) 07/17/24 06:19 Hgb 13.3 g/dL (13.6-17.9) L 07/17/24 06:19 Hct 40.7 % (39.6-49.0) 07/17/24 06:19 MCV 85.1 fL (80-100) 07/17/24 06:19 MCH 27.8 pg (27.0-35.0) 07/17/24 06:19 MCHC 32.7 g/dL (32.0-36.0) 07/17/24 06:19 RDW 16.5 % (12.1-15.2) H 07/17/24 06:19 Plt Count 238 thou/uL (152-406) 07/17/24 06:19 MPV 7.9 fL (7.6-11.3) 07/17/24 06:19 Neutrophils % 68.0 % (41.7-73.7) 07/17/24 06:19 Lymphocytes % 16.8 % (15.3-44.8) 07/17/24 06:19 Monocytes % 10.7 % (3.3-12.3) 07/17/24 06:19 Eosinophils % 3.5 % (0-4.4) 07/17/24 06:19 Basophils % 1.0 % (0-1.3) 07/17/24 06:19 Absolute Neutrophils 5.3 K/uL (1.8-8.0) 07/17/24 06:19 Absolute Lymphocytes 1.3 K/uL (0.7-4.9) 07/17/24 06:19 Absolute Monocytes 0.8 K/uL (0.1-1.3) 07/17/24 06:19 Absolute Eosinophils 0.3 K/uL (0-0.5) 07/17/24 06:19 Absolute Basophils 0.1 K/uL (0-0.5) 07/17/24 06:19 Sodium 139 mEq/L (136-145) 07/17/24 06:19 Potassium 4.1 mEq/L (3.5-5.1) 07/17/24 06:19 Chloride 104 mEq/L (98-107) 07/17/24 06:19 Carbon Dioxide 31 mEq/L (21-32) 07/17/24 06:19 Anion Gap 8.1 mEq/L (5.0-15.0) 07/17/24 06:19 BUN 44 mg/dL (7-18) H 07/17/24 06:19 Creatinine 1.79 mg/dL (0.70-1.30) H 07/17/24 06:19 Est GFR (CKD-EPI) 39 ml/min (=/>90) L 07/17/24 06:19 Glucose 165 mg/dL (74-106) H 07/17/24 06:19 POC Glucose 146 mg/dL (65-120) H 07/17/24 16:49 Hemoglobin A1c 7.7 % (4.2-6.3) H 07/17/24 06:19 Calcium 10.2 mg/dL (8.5-10.1) H 07/17/24 06:19 Magnesium 2.5 mg/dL (1.6-2.4) H 07/17/24 06:19 NT-Pro-B Natriuret Pep 1673 pg/mL (<450) H 07/17/24 06:19 Albumin 2.9 g/dL (3.4-5.0) L 07/17/24 06:19 Prealbumin 13.7 mg/dL (20-40) L 07/17/24 06:19 Vitamin B12 376 pg/mL (193-986) 07/17/24 06:19 Urine Color Light-yellow (Yellow) 07/16/24 10:30 Urine Clarity Clear (Clear) 07/16/24 10:30 Urine pH 6.5 (5.0-7.0) 07/16/24 10:30 Ur Specific [place] 1.024 (1.005-1.030) 07/16/24 10:30 Glucose (UA)(Auto) 4+ (over) (Negative) H 07/16/24 10:30 Urine Ketones Negative (Negative) 07/16/24 10:30 Urine Blood Negative (Negative) 07/16/24 10:30 Urine Nitrite Negative (Negative) 07/16/24 10:30 Urine Bilirubin Negative (Negative) 07/16/24 10:30 Urine Urobilinogen Normal (Normal) 07/16/24 10:30 Ur Leukocyte Esterase Negative Luis/uL (Negative) 07/16/24 10:30 Urine RBC None seen /HPF (None Seen) 07/16/24 10:30 Urine WBC <5 /HPF (<5) 07/16/24 10:30 Ur Squamous Epith Cells <5 /HPF (None Seen) 07/16/24 10:30 Urine Bacteria None seen /HPF (<20) 07/16/24 10:30 Urine Yeast (Budding) Trace /HPF (None Seen) H 07/16/24 10:30 Urine Culture Reflexed Not needed 07/16/24 10:30 Urine Total Protein Trace (Negative) H 07/16/24 10:30 Weight: 280 lb Physician Update: His labs have been reviewed. His calcium and magnesium are mildly elevated. Magnesium oxide will be discontinued. Due to poor energy, he will receive B12 1000 mcg IM. His BIMS scores is 13 and MOCA 25. The results are consistent with mild cognitive impairment. He requires moderate to maximum assistance with mobilization and bed mobility. He ambulated 125 feet with standby assistance. He mobilize a wheelchair 200 feet with standby assistance. He requires maximum assistance for lower body dressing donning socks and footwear. Summary: Patient's care plan and continuous churn buttermaker goals have been reviewed and revised as necessary. Please see the Rehabilitation Signature page for all necessary signatures.
[2024-07-17] MEDS ORDERED: ARIPiprazole 5 MG TAB PO SCH (21:00)
[2024-07-18] MEDS: CYANOCOBALAMIN 1000MCG/ML INJ SQ ONE (08:49)
[2024-07-18] MEDS ORDERED: guaiFENesin 100 MG/5 ML UCUP PO PRN (17:35)
--- NOTE | 2024-07-18 21:18 | P.PN ---
Subjective Date of Service: 07/18/24 Chief Complaint: fatigue Ludwin is morbidly obese gm with COPD, CHF, a. fib. DM and has fatigue and weakness. He is here for PT. complains a lot and constantly. Nurses are threatened by her. Review of Systems 10-point ROS is otherwise unremarkable General: Weakness Physical Examination - Vital Signs Temperature: 98.3 F Blood Pressure: 127/60 Pulse: 56 Respirations: 18 Pulse Ox (%): 96 - Physical Exam General: Alert, In no apparent distress HEENT: Atraumatic, PERRLA, EOMI Neck: Supple, JVD not distended Respiratory: Clear to auscultation bilaterally, Normal air movement, Rhonchi/gurgles (mild) Cardiovascular: Regular rate/rhythm, Normal S1 S2 Gastrointestinal: Normal bowel sounds, No tenderness Musculoskeletal: No tenderness Integumentary: No rashes Neurological: Normal speech, Normal tone, Normal affect Lymphatics: No axilla or inguinal lymphadenopathy - Studies Microbiology Data (last 24 hrs): 07/17/24 16:20 Sputum Sputum Gram Stain - Final Medications List Reviewed: Yes Assessment And Plan - Current Problems (Diagnosis) (1) COPD (chronic obstructive pulmonary disease) Current Visit: Yes Status: Acute Plan: CONT NEBS SPUTUM CULTURE NEG SO FAR. STABLE CLINICALLY. (2) History of atrial fibrillation Current Visit: Yes Status: Chronic (3) Pneumonia Current Visit: No Status: Acute Plan: REDO CXR HE IS ON AMOX CLAV AFTER FEW DAYS OF MERREM IV. HE DOES NOT HAVE ANY MAJOR SS FROM THIS. SPUTUM CS NEG SO FAR CONSULT DR. QUINONEZ.
[2024-07-18] MEDS: ALBUTEROL 2.5 MG/3 ML NEB SOL NEB SCH (21:26)
[2024-07-18] MEDS: BENZONATATE 100 MG CAP PO PRN (21:48)
--- NOTE | 2024-07-18 22:29 | RAD REPORT ---
EXAMINATION: TWO VIEW CHEST XR CLINICAL INDICATION: DYSPNEA TECHNIQUE: 2 views of the chest was performed. COMPARISON: 07/16/2024, 07/13/2024 FINDINGS: The lungs are hyperexpanded suggesting COPD. The heart is mildly enlarged in size with dual lead pace r device. No displaced fractures evident. Sternotomy wires. IMPRESSION: COPD is suspected without acute finding identified.
[2024-07-18 22:35] LABS: Anion Gap 7.8 mEq/L (5.0-15.0); Potassium 4.8 mEq/L (3.5-5.1)
[2024-07-19 00:59] LABS: Magnesium 2.6 mg/dL (1.6-2.4)
[2024-07-19] MEDS ORDERED: ALBUTEROL 2.5 MG/3 ML NEB SOL NEB SCH (01:00)
[2024-07-19] MEDS: IPRATROPIUM BROM 0.5MG/2.5ML NEB SCH (01:28)
[2024-07-19 06:20] LABS: Absolute Basophils 0.1 K/uL (0-0.5); Absolute Eosinophils 0.3 K/uL (0-0.5); Absolute Lymphocytes (CBC) 1.4 K/uL (0.7-4.9); Absolute Monocytes 0.9 K/uL (0.1-1.3); Absolute Neutrophil 5.3 K/uL (1.8-8.0); Basophils % 1.1 % (0-1.3); Eosinophils % 3.9 % (0-4.4); Hematocrit 40.2 % (39.6-49.0); Hemoglobin 13.4 g/dL (13.6-17.9); Lymphocytes % 17.6 % (15.3-44.8); MCH 28.1 pg (27.0-35.0); MCHC 33.4 g/dL (32.0-36.0); MCV 84.4 fL (80-100); MPV 8.2 fL (7.6-11.3); Monocytes % 11.3 % (3.3-12.3); Neutrophils % 66.1 % (41.7-73.7); Nucleated Red Blood Cells % 0.1 % (0-0); Platelets 207 thou/uL (152-406); RBC Red Blood Cell Count 4.77 M/uL (4.33-5.43); Red Cell Distribution Width 16.3 % (12.1-15.2)
--- NOTE | 2024-07-19 11:00 | P.PN ---
Subjective Date of Service: 07/19/24 Chief Complaint: DYPSNEA IS BETTER. Subjective: Improving Ludwin is morbidly obese gm with COPD, CHF, a. fib. DM and has fatigue and weakness. He is here for PT. complains a lot and constantly. Nurses are threatened by her. I came last night and he was wheezing mild. He is given his nebs treatment routinely and he is lot better. I told him that his has been nasty to nurses and threatens to monica etc. I told him that in such case there will be no one wanting to take care of him or his . He says "sorry, she is nuts". Review of Systems 10-point ROS is otherwise unremarkable General: Weakness, Malaise Physical Examination - Vital Signs Temperature: 97.7 F Blood Pressure: 115/56 Pulse: 61 Respirations: 18 Pulse Ox (%): 94 - Physical Exam General: In no apparent distress, Obese HEENT: Atraumatic, PERRLA, EOMI Neck: Supple, JVD not distended Respiratory: Clear to auscultation bilaterally, Normal air movement Cardiovascular: Regular rate/rhythm, Normal S1 S2 Gastrointestinal: Normal bowel sounds, No tenderness Musculoskeletal: No tenderness Integumentary: No rashes Neurological: Normal speech, Normal tone, Normal affect Lymphatics: No axilla or inguinal lymphadenopathy - Studies Laboratory Data (last 24 hrs) 07/19/24 07/18/24 07/18/24 05:48 Unknown 22:05 WBC 8.10 Hgb 13.4 L Hct 40.2 Plt Count 207 Sodium Cancelled 136 Potassium Cancelled 4.8 BUN Cancelled 56 H Creatinine Cancelled 2.15 H Glucose Cancelled 151 H Magnesium 2.6 H Microbiology Data (last 24 hrs): 07/17/24 16:20 Sputum Sputum Gram Stain - Final 07/17/24 16:20 Sputum Culture & Sensitivity - Final 07/16/24 20:30 Clean Catch Urine [place] Count - Final No growth. 07/16/24 20:30 Clean Catch Urine - Final No growth. Medications List Reviewed: Yes Assessment And Plan - Current Problems (Diagnosis) (1) COPD (chronic obstructive pulmonary disease) Current Visit: Yes Status: Acute Plan: CONT NEBS SPUTUM CULTURE NEG SO FAR. STABLE CLINICALLY. CONT NEBS ADD TRELLEGY IF THEY CAN AFFORD. IT HAS BEEN AN ISSUE FOR MANY PATIENTS THAT THEY CAN'T AFFORD PREVENTIVE INHALERS. I CALLED AND SHE DID NOT GRAIN DRIER THE PHONE. SHE IS NOT AT BEDSIDE. I DID NOT LEAVE A MESSAGE IT WILL BE CONFIDENTIAL. (2) History of atrial fibrillation Current Visit: Yes Status: Chronic (3) Pneumonia Current Visit: No Status: Acute Plan: REDO CXR HE IS ON AMOX CLAV AFTER FEW DAYS OF MERREM IV. HE DOES NOT HAVE ANY MAJOR SS FROM THIS. SPUTUM CS NEG SO FAR CONSULT DR. QUINONEZ. CXR NEG. DEMANDS STRONGER ANTIBIOTIC BUT HE DOES NOT NEED ONE. (4) Dehydration Current Visit: Yes Status: Acute Plan: REDUCE LASIX FROM 60 MG TO 20 MG DAILY STOP SPIRONOLACTONE. CONSULT DICTIONARY EDITOR. (5) Chronic diastolic heart failure Current Visit: Yes Status: Chronic Plan: CURRENTLY NO SIGNS OF CHF.
[2024-07-19] MEDS: ARFORMOTEROL TARTRATE 15 MCG/2 ML VIAL.NEB NEB SCH (11:30)
[2024-07-19] MEDS: APIXABAN 2.5 MG TABLET PO SCH (20:27)
[2024-07-20 07:09] LABS: Absolute Basophils 0.1 K/uL (0-0.5); Absolute Eosinophils 0.3 K/uL (0-0.5); Absolute Lymphocytes (CBC) 1.6 K/uL (0.7-4.9); Absolute Monocytes 0.9 K/uL (0.1-1.3); Absolute Neutrophil 5.2 K/uL (1.8-8.0); Basophils % 0.9 % (0-1.3); Eosinophils % 3.9 % (0-4.4); Hematocrit 41.4 % (39.6-49.0); Hemoglobin 13.4 g/dL (13.6-17.9); Lymphocytes % 19.3 % (15.3-44.8); MCH 27.7 pg (27.0-35.0); MCHC 32.4 g/dL (32.0-36.0); MCV 85.5 fL (80-100); MPV 8.1 fL (7.6-11.3); Monocytes % 11.6 % (3.3-12.3); Neutrophils % 64.3 % (41.7-73.7); Nucleated Red Blood Cells % 0.1 % (0-0); Platelets 252 thou/uL (152-406); RBC Red Blood Cell Count 4.84 M/uL (4.33-5.43); Red Cell Distribution Width 16.8 % (12.1-15.2)
[2024-07-20] MEDS: guaiFENesin 100 MG/5 ML UCUP PO SCH (07:36)
--- NOTE | 2024-07-20 08:11 | P.CNS ---
Date of Consult: 07/19/24 Reason for Consult: Pneumonia Chief Complaint: DYPSNEA IS BETTER. History of Present Illness: Patient is 73 years of age admitted with paresthesia involving his right leg associated with a fall patient he was admitted with the possibility of pneumonia he denies any complaints no shortness of breath or cough neck smoker quit 4 months ago not on any oxygen at home some interstitial lung disease paresthesia in the right leg has resolved patient also has chronic renal failure steroids negative Allergies No Known Allergies Allergy (Verified 07/16/24 14:35) Home Medications: Magnesium Oxide 400 mg PO BID 05/11/22 Metoprolol Succinate [Toprol Xl*] 12.5 mg PO DAILY PRN 05/11/22 Potassium Chloride [Klor-Con 10] 40 meq PO BID 11/21/22 glipiZIDE [Glipizide] 5 mg PO DAILY PRN 11/21/22 Apixaban [Eliquis] 5 mg PO BID 01/28/24 Aripiprazole [Abilify] 30 mg PO DAILY 01/28/24 Empagliflozin [Jardiance] 25 mg PO DAILY 01/28/24 Gabapentin [Neurontin*] 2 tab PO BEDTIME 01/28/24 Trazodone HCl 2 mg PO BEDTIME 01/28/24 Clotrim/Betameth Cream [Lotrisone Cream*] 1 appl TOP DAILY #1 tube 01/31/24 Amiodarone HCl [Cordarone*] 200 mg PO BID 03/19/24 Spironolactone 50 mg PO DAILY #90 tab 03/20/24 Ensure Max Protein 330 ml PO BIDAC #60 can 06/11/24 Furosemide [Lasix*] 40 mg PO BIDAC #60 tab 06/11/24 - Past Medical/Surgical History Diabetic: Yes -: Hypertension -: Diabetes mellitus type 2 -: Posttraumatic stress disorder -: Anxiety -: Hepatitis-C -: Hyperlipidemia -: CAD, stent placement x2, atrial fibrillation, chronic diastolic CHF -: Obstructive sleep apnea -: Obesity -: Diabetic neuropathy -: History pancreatitis -: COPD, tobacco abuse -: 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 - Family History Father Medical History: Other (see notes) Notes: CHF Mother Medical History: Cancer Notes: breast cancer Sister Medical History: Cancer Notes: colon cancer Brother Medical History: Cancer Notes: throat cancer - Social History Smoking Status: Unknown if ever smoked Alcohol use: No CD- Drugs: No Caffeine use: No Place of Residence: Home Review of Systems 10-point ROS is otherwise unremarkable General: Weakness Respiratory: Shortness of Breath Physical Examination Temp Pulse Resp BP Pulse Ox 97.8 F 60 20 132/60 93 07/20/24 07:19 07/20/24 07:19 07/20/24 07:19 07/20/24 07:19 07/20/24 07:19 General: Alert, Oriented x3 HEENT: Atraumatic Neck: Supple Respiratory: Clear to auscultation bilaterally Cardiovascular: No edema, Regular rate/rhythm, Normal S1 S2 Laboratory Data (last 24 hrs) 07/20/24 06:14 WBC 8.10 Hgb 13.4 L Hct 41.4 Plt Count 252 - Problems (1) Systolic and diastolic CHF, acute on chronic Current Visit: Yes Status: Acute Plan: Patient is 73 years of age has systolic and diastolic congestive heart failure unable pneumonia his current normal white count chronic renal failure so far cultures are negative patient's vital signs are stable no fever right sided leg paresthesia has resolved and is weak oxygenation appears to be satisfactory has a history of COPD antibiotics can be DC'd patient will need a long-acting bronchodilator at home patient has a history of A-fib is on amiodarone and Eliquis
[2024-07-20] MEDS: FUROSEMIDE 20 MG TABLET PO SCH (08:48)
[2024-07-20] MEDS: POTASSIUM CL SA 10 MEQ TAB PO SCH (08:51)
[2024-07-20 09:33] LABS: Anion Gap 10.6 mEq/L (5.0-15.0); Potassium 4.6 mEq/L (3.5-5.1)
[2024-07-20] MEDS: ONDANSETRON 4 MG (ODT) TAB PO PRN (09:40)
--- NOTE | 2024-07-20 12:20 | P.PN ---
Subjective Date of Service: 07/20/24 Chief Complaint: DYPSNEA IS BETTER. Subjective: Improving Ludwin is morbidly obese gm with COPD, CHF, a. fib. DM and has fatigue and weakness. He is here for PT. complains a lot and constantly. Nurses are threatened by her. I came last night and he was wheezing mild. He is given his nebs treatment routinely and he is lot better. I told him that his has been nasty to nurses and threatens to monica etc. I told him that in such case there will be no one wanting to take care of him or his . He says "sorry, she is nuts". He has cough after eating. Breathing is better. Review of Systems 10-point ROS is otherwise unremarkable General: Weakness Respiratory: Cough Physical Examination - Vital Signs Temperature: 97.8 F Blood Pressure: 132/60 Pulse: 60 Respirations: 20 Pulse Ox (%): 93 - Physical Exam General: Oriented x3, Mild distress, Obese, Other (deconditioned.) HEENT: Atraumatic, PERRLA, EOMI Neck: Supple, JVD not distended Respiratory: Clear to auscultation bilaterally, Normal air movement Cardiovascular: Regular rate/rhythm, Normal S1 S2 Gastrointestinal: Normal bowel sounds, No tenderness Musculoskeletal: No tenderness Integumentary: No rashes Neurological: Normal speech, Normal tone, Normal affect Lymphatics: No axilla or inguinal lymphadenopathy - Studies Laboratory Data (last 24 hrs) 07/20/24 07/20/24 09:09 06:14 WBC 8.10 Hgb 13.4 L Hct 41.4 Plt Count 252 Sodium 136 Potassium 4.6 BUN 63 H Creatinine 2.36 H Glucose 223 H Microbiology Data (last 24 hrs): 07/17/24 16:20 Sputum Sputum Gram Stain - Final 07/17/24 16:20 Sputum Culture & Sensitivity - Final 07/16/24 20:30 Clean Catch Urine Dubach Count - Final No growth. 07/16/24 20:30 Clean Catch Urine - Final No growth. Medications List Reviewed: Yes Assessment And Plan - Current Problems (Diagnosis) (1) COPD (chronic obstructive pulmonary disease) Current Visit: Yes Status: Acute Plan: CONT NEBS SPUTUM CULTURE NEG SO FAR. STABLE CLINICALLY. CONT NEBS ADD TRELLEGY IF THEY CAN AFFORD. IT HAS BEEN AN ISSUE FOR MANY PATIENTS THAT THEY CAN'T AFFORD PREVENTIVE INHALERS. I CALLED AND SHE DID NOT SHEARING MACHINE FEEDER THE PHONE. SHE IS NOT AT BEDSIDE. I DID NOT LEAVE A MESSAGE IT WILL BE CONFIDENTIAL. DR. JONES STARTED FORMOTROL. CONT NEBS. (2) History of atrial fibrillation Current Visit: Yes Status: Chronic (3) Pneumonia Current Visit: No Status: Acute Plan: REDO CXR HE IS ON AMOX CLAV AFTER FEW DAYS OF MERREM IV. HE DOES NOT HAVE ANY MAJOR SS FROM THIS. SPUTUM CS NEG SO FAR CONSULT DR. QUINONEZ. CXR NEG. DEMANDS STRONGER ANTIBIOTIC BUT HE DOES NOT NEED ONE. (4) Dehydration Current Visit: Yes Status: Acute Plan: REDUCE LASIX FROM 60 MG TO 20 MG DAILY STOP SPIRONOLACTONE. 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 ALREADY IMPROVED AFTER I REDUCE DIURETICS. (5) Chronic diastolic heart failure Current Visit: Yes Status: Chronic Plan: CURRENTLY NO SIGNS OF CHF. (6) Aspiration into airway Current Visit: Yes Status: Acute Plan: POSSIBLE. HE EATS LEANING BACKWARDS. HE IS DECONDITIONED. WILL DO MBS AND ST.
[2024-07-20] MEDS ORDERED: SIMETHICONE 80 MG CHEWABLE TAB PO PRN (13:27)
--- NOTE | 2024-07-20 15:09 | RAD REPORT ---
Modified barium swallow exam with speech pathology service HISTORY: DYSPHAGIA Fluoroscopy Time: 1:58 Cumulative dose: 15.46 mGy IMPRESSION: Please see the speech pathology service report for details. Barium contrast of multiple consistencies was provided the patient orally by the speech pathology dep artment. Fluoroscopic observation was performed during swallowing. The radiologist was not present for the examination. Provided images demonstrate no evidence for vanessa subglottic tracheal aspiration .
--- NOTE | 2024-07-21 00:23 | PN ---
Date of Progress Note: 07/20/2024 Time Of Service: 1:25 p.m. Subjective: Mr. Hsu is doing well so far with therapy, although last night he said he had diffic ulty sleeping because of back pain. He, however, notes that he is pretty happy so far with his thera py. He is followed by Dr. George, his primary care physician, and Dr. Fong. Dr. Fong noted t he patient has heart failure, pneumonia, renal failure. Cultures are negative. He notes his COPD ap pears to be satisfactorily controlled. Notes that his long-acting bronchodilators need to be continu ed. Regarding Dr. George's note today, he did decrease the patient's Lasix and made adjustments to hi s medications, and he communicated these changes with the patient's . The patient did have a mod ified barium swallow study done today and the study showed no evidence of subglottic tracheal aspirat ion. Physical Examination: Vital Signs: Blood pressure 130/60, pulse 60, respiratory rate 20, temperature 97.8, oxygen saturati on 93%. General: Again, Mr. Hsu is resting comfortably in bed. He has no significant distress. He has oxygen via nasal cannula. Decreased breath sounds bilaterally. Reported some abdominal distention d ue to gas that was after breakfast. Otherwise, no new findings. Laboratory Studies: White blood cell count 8.1, hemoglobin 13.4, platelets 252. Sodium 136, potassi um 4.6, chloride 101, creatinine 2.36, glucose ranged from 153 to 160, calcium 9.8. Medications: Albuterol nebulizer 2.5 mg every 6 hours as needed, Cordarone 200 mg twice daily, Augme ntin 875/125 twice daily, Eliquis 2.5 mg twice daily, Brovana 15 mcg twice daily, Abilify 30 mg at be dtime, Tessalon Perles 200 mg 3 times daily, Lasix 20 mg daily, gabapentin 800 mg at bedtime, glipizi de 5 mg twice daily, guaifenesin 200 mg twice daily as needed, ipratropium 0.5 mg nebulizer every 6 h ours, nicotine patch 14 mg daily, Zofran 4 mg every 4 hours as needed, Mylicon 80 mg every 6 hours as needed, tramadol 50 mg every 6 hours as needed, trazodone 50 mg at bedtime. Progress Made With Physical, Occupational, And Speech Therapy: Today, he performed multiple supine-t o-sit transfers with standby assistance. Toilet transfer with moderate assistance. He also mobilize d wheelchair 250 feet with supervision and verbal cues. With occupational therapy, standby assistanc e for toileting, using grab bars. Oral hygiene also needed help, minimum assistance. Did show some improved strength and endurance. Still has issues of safety awareness. Again, modified barium swall ow was done today. The speech pathologist noted flash penetration into the airway with thin liquids only, which cleared spontaneously with no aspiration at any time during the study. He had mild-to-mi nimal vallecular residual after solids, which cleared with additional swallow and a liquid wash. His diet is put at mechanical soft diet and thin liquids, upright 90 degrees. Eating, double swallow, a lternate liquids and solids. Assessment: Mr. Hsu is a 73-year-old patient in rehabilitation unit with pneumonia and pneumonit is. He has chronic obstructive pulmonary disease, atrial fibrillation, dehydration, diastolic heart dysfunction and is followed by Dr. George and Dr. Fong along with of course his physical therapy b eing done. Plan: Will continue with physical, occupational, and speech therapy 3.5 hours, 5 of 7 days. Continu e with comorbid condition medications, which have been managed by Dr. George and Dr. Fong. He has DVT prophylaxis on board with Eliquis 2.5 mg twice daily. Continue with diabetes and blood pressure management along with antipsychotic medications as needed. LB/MODL Voice ID: [id number] Report ID: [id number]
--- NOTE | 2024-07-21 00:28 | CON ---
Date of Consultation: 07/20/2024 Chief Complaint: Acute on chronic kidney injury. History Of Present Illness: The patient is a 73-year-old man with history of lower extremity paresth esia, history of fall, and he is admitted to rehab floor for physical therapy. The patient has multi ple admission for sepsis, cerebrovascular disease, posttraumatic stress disorder, diabetes mellitus with renal manifestation, chronic kidney disease, chronic diastolic congestive heart failure , coronary artery disease, stent placement, atrial fibrillation. The patient denies urinary tract sy mptoms. Denies hematuria, dysuria, incomplete voiding. Review of Systems: Constitutional: Denies fevers, chills. Eyes: Denies vision changes. Ears, Nose, and Throat: Denies sore throat, earache. Respiratory: Has dyspnea on exertion. Denies PND, orthopnea. Cardiovascular: Denies syncope, palpitation. GI: Denies nausea, vomiting. : Denies dysuria, hematuria. All other systems reviewed and all are negative. Past Medical History: Diabetes mellitus; chronic kidney disease, stage 3; posttraumatic stress disor cale; hypertensive heart and kidney disease; hepatitis C; hyperlipidemia; anxiety; coronary artery dis ease, stent placement; atrial fibrillation; chronic diastolic congestive heart failure; obstructive s leep apnea; obesity; diabetic neuropathy; history of pancreatitis; COPD; tobacco abuse; tumor removal from his finger; angioplasty; cardiac stent placement in 2013; pacemaker; triple bypass. Social History: . Currently, disabled. Has 1 child. Tobacco. Denies drugs, denies alcohol . Family History: Father, congestive heart failure. Mother, breast cancer. Sister, colon cancer. Br other, throat cancer. Physical Examination: General: The patient is alert, oriented, not in acute distress. Eyes: Anicteric sclerae. EOMI. Ears, Nose, Mouth, and Throat: Oral mucosa moist. No pallor. Neck: Supple. No bruits. Lungs: Clear to auscultation bilaterally. Heart: S1, S2. Abdomen: Soft, benign. Extremities: Chronic dermatitis, right lower extremity edema. Impression And Plan: 1. Acute on chronic kidney injury due to cardiorenal syndrome. The patient has systolic and diastoli c congestive heart failure. . 2. Atrial fibrillation, on amiodarone and Eliquis. 3. Hypertension. Continue blood pressure medication. Avoid nonsteroidal anti-inflammatory medicatio n. 4. Check CK level to rule out rhabdomyolysis. Check UA to screen for active urinary sediment. 5. Diabetes mellitus with renal manifestation. Check urine protein creatinine ratio. HILDA/PARTH Voice ID: [id number] Report ID: [id number]
[2024-07-21 11:27] LABS: Absolute Basophils 0.1 K/uL (0-0.5); Absolute Eosinophils 0.3 K/uL (0-0.5); Absolute Lymphocytes (CBC) 0.9 K/uL (0.7-4.9); Absolute Monocytes 0.9 K/uL (0.1-1.3); Absolute Neutrophil 6.6 K/uL (1.8-8.0); Basophils % 1.1 % (0-1.3); Eosinophils % 3.3 % (0-4.4); Hematocrit 41.8 % (39.6-49.0); Hemoglobin 13.9 g/dL (13.6-17.9); Lymphocytes % 10.5 % (15.3-44.8); MCH 28.3 pg (27.0-35.0); MCHC 33.2 g/dL (32.0-36.0); MCV 85.3 fL (80-100); MPV 8.6 fL (7.6-11.3); Neutrophils % 75.1 % (41.7-73.7); Nucleated Red Blood Cells % 0.2 % (0-0); Platelets 232 thou/uL (152-406); Red Cell Distribution Width 16.3 % (12.1-15.2)
[2024-07-21 11:29] LABS: Anion Gap 9.6 mEq/L (5.0-15.0); Magnesium 2.7 mg/dL (1.6-2.4); Potassium 4.6 mEq/L (3.5-5.1)
--- NOTE | 2024-07-21 13:11 | P.PN ---
Subjective Date of Service: 07/21/24 Chief Complaint: DYPSNEA IS BETTER. Subjective: Improving Ludwin is morbidly obese gm with COPD, CHF, a. fib. DM and has fatigue and weakness. He is here for PT. complains a lot and constantly. Nurses are threatened by her. I came last night and he was wheezing mild. He is given his nebs treatment routinely and he is lot better. I told him that his has been nasty to nurses and threatens to monica etc. I told him that in such case there will be no one wanting to take care of him or his . He says "sorry, she is nuts". He has cough after eating. Breathing is better. he wants to go home but refuses to do PT. Review of Systems 10-point ROS is otherwise unremarkable General: Weakness Eyes: As per HPI Physical Examination - Vital Signs Temperature: 97.6 F Blood Pressure: 124/62 Pulse: 63 Respirations: 20 Pulse Ox (%): 96 - Physical Exam General: In no apparent distress, Oriented x2, Obese HEENT: Atraumatic, PERRLA, EOMI Neck: Supple, JVD not distended Respiratory: Clear to auscultation bilaterally, Normal air movement Cardiovascular: Regular rate/rhythm, Normal S1 S2 Gastrointestinal: Normal bowel sounds, No tenderness Musculoskeletal: No tenderness Integumentary: No rashes Neurological: Normal speech, Normal tone, Normal affect Lymphatics: No axilla or inguinal lymphadenopathy - Studies Laboratory Data (last 24 hrs) 07/21/24 07/21/24 10:44 10:44 WBC 8.80 Hgb 13.9 Hct 41.8 Plt Count 232 Sodium 135 L Potassium 4.6 BUN 65 H Creatinine 2.35 H Glucose 268 H Magnesium 2.7 H Medications List Reviewed: Yes Assessment And Plan - Current Problems (Diagnosis) (1) COPD (chronic obstructive pulmonary disease) Current Visit: Yes Status: Acute Plan: CONT NEBS SPUTUM CULTURE NEG SO FAR. STABLE CLINICALLY. CONT NEBS ADD TRELLEGY IF THEY CAN AFFORD. IT HAS BEEN AN ISSUE FOR MANY PATIENTS THAT THEY CAN'T AFFORD PREVENTIVE INHALERS. I CALLED AND SHE DID NOT APPRENTICE PATTERN MAKER THE PHONE. SHE IS NOT AT BEDSIDE. I DID NOT LEAVE A MESSAGE IT WILL BE CONFIDENTIAL. DR. JONES STARTED FORMOTROL. CONT NEBS. STABLE. NO CHANGES. (2) History of atrial fibrillation Current Visit: Yes Status: Chronic (3) Pneumonia Current Visit: No Status: Acute Plan: REDO CXR HE IS ON AMOX CLAV AFTER FEW DAYS OF MERREM IV. HE DOES NOT HAVE ANY MAJOR SS FROM THIS. SPUTUM CS NEG SO FAR CONSULT DR. QUINONEZ. CXR NEG. DEMANDS STRONGER ANTIBIOTIC BUT HE DOES NOT NEED ONE. (4) Dehydration Current Visit: Yes Status: Acute Plan: REDUCE LASIX FROM 60 MG TO 20 MG DAILY STOP SPIRONOLACTONE. 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 ALREADY IMPROVED AFTER I REDUCE DIURETICS. IMPROVED CONTINUE SMALL DOSE OF DIURETICS ONLY. (5) Chronic diastolic heart failure Current Visit: Yes Status: Chronic Plan: CURRENTLY NO SIGNS OF CHF. (6) Aspiration into airway Current Visit: Yes Status: Acute Plan: POSSIBLE. HE EATS LEANING BACKWARDS. HE IS DECONDITIONED. WILL DO MBS AND ST.
--- NOTE | 2024-07-21 17:19 | RAD REPORT ---
EXAMINATION: US RENAL ULTRASOUND CLINICAL INDICATION: elisabeth on CKD 3 TECHNIQUE: Real-time ultrasonography of the abdomen was performed. COMPARISON: 06/09/2024 FINDINGS: RIGHT KIDNEY: Right renal length measurement: 9.1 x 4.7 x 4.1 cm. Normal in echogenicity and size. No calculus, solid mass or hydronephrosis. 17 mm benign renal cyst. LEFT KIDNEY: Left renal length measurement: 9.1 x 5.4 x 3.4 cm. Normal in echogenicity and size. No c alculus, solid mass or hydronephrosis. URINARY BLADDER: Incompletely distended without gross abnormality detected. ADDITIONAL FINDINGS: None. IMPRESSION: Benign right renal cyst, otherwise negative study.
[2024-07-21 19:13] LABS: UR MICROALBUMIN 4.1 mg/dL (< 1.9)
--- NOTE | 2024-07-21 22:43 | PN ---
Date of Progress Note: 07/21/2024 Chief Complaint: Acute on chronic kidney injury. Subjective: The patient is a 73-year-old man with history of lower extremity paresthesias, history o f fall. He is admitted to rehab for physical therapy. The patient has multiple medical problems inc luding CVA, posttraumatic stress disorder, diabetes mellitus with renal manifestation, chronic kidney disease, chronic diastolic congestive heart failure, coronary artery disease, peripheral vascular di sease, status post stent placement, atrial fibrillation. The patient denies lower urinary tract symp toms. Renal ultrasound did not show urinary retention. Review of Systems: Denies chest pain, palpitation. Physical Examination: Lungs: Clear to auscultation bilaterally. Heart: S1, S2. Abdomen: Soft, benign. Extremities: Chronic dermatitis. Lower extremity edema. Impression And Plan: 1. Acute on chronic kidney injury due to cardiorenal syndrome, diabetes mellitus with renal manifesta tion, hypertensive heart and kidney disease. The patient has systolic and diastolic congestive heart failure. Continue Lasix. 2. Atrial fibrillation, on amiodarone. 3. Hypertension. Continue current medication. 4. Check CK level to rule out rhabdomyolysis. Urinalysis was ordered to screen for active urinary se diment and to check proteinuria. 5. Diabetes mellitus with renal manifestation. Monitor urine protein creatinine ratio. EB/MODL Voice ID: [id number] Report ID: [id number]
--- NOTE | 2024-07-21 23:22 | PN ---
Date of Progress Note: 07/21/2024 Time Of Service: 1:40 p.m. Subjective: Mr. Hsu is doing well so far. Still requiring some oxygen via nasal cannula. Does not report significant chest pain or abdominal pain. He does have the moderate obesity with distende d abdomen. He is followed by Dr. George, his primary care physician, he is seen by Dr. Granda on the Re nal Service and Dr. Fong on the Pulmonary Service. Objective: Mild myalgias, arthralgias. No rash, headache, weight change. No other positives on sys tems review. Physical Examination: Vital Signs: Blood pressure 121/59, pulse of 59, respiratory rate 18, temperature 97.8, oxygen satur ation 95%. General: Again, Mr. Hsu is resting comfortably. HEENT: He does appear normocephalic, atraumatic. Sclerae anicteric. Chest: He has decreased breath sounds bilaterally. Extremities: Show mild trace edema in the lower extremities. Laboratory Studies: His complete blood count with differential is essentially unremarkable. Normal white blood cell count, normal hemoglobin, hematocrit, and platelets. His sodium is still slightly l ow to 135, potassium 4.6, carbon dioxide 29, BUN 65, creatinine 2.35, glucose ranged from 100 to 248, calcium 9.7, magnesium 2.7. X-ray/imaging: No new x-rays or imaging. Progress Made With Physical And Occupational Therapy: Today with physical therapy, he performed mult iple [id number] transfers with supervision. Multiple [id number] transfers with standby assistan ce. He ambulated 150 feet, 120 feet twice, another 170 feet 2 times with contact guard assistance. He mobilized a wheelchair 150 feet with supervision. He did have encouragement with proper breathing techniques and he did very well. With occupational therapy, he was at a standby assistance for show er transfers using grab bars, performed upper body dressing with contact guard to standby assistance, lower body dressing with moderate assistance. He was motivated to participate and did very well in participation. He actually worked with speech and he did demonstrate knowledge of cause effect situa tions with 100% accuracy without cues. Did sequence 4 units of information with 70% accuracy and min imum assistance. Assessment: Mr. Hsu is a 73-year-old patient in the rehabilitation unit with pneumonitis. He do es have mild cognitive impairment, decreased mobility, decreased physical functioning, and some episo madi of antipsychotic features with history of Abilify. He has gabapentin for neuropathic pain, glipi zide for diabetes mellitus, nebulizer treatment on board, nicotine patch for tobacco dependency. He has potassium replacement, sodium replacement as well, and his pain is managed by tramadol, insomnia by trazodone. Plan: He will continue with physical, occupational, and speech therapy 3.5 hours, 5 of 7 days. He d oes have the Renal Service, his primary care physician, Dr. George, as well as the Pulmonary Service o n board. Comorbidities Impacting Rehabilitation: Mild shortness of breath is still a limiting factor. Incent danny spirometry strongly encouraged to help him increase endurance and decrease the need for oxygen rothman pplementation. LB/MODL Voice ID: [id number] Report ID: [id number]
[2024-07-22 08:20] LABS: Anion Gap 10.5 mEq/L (5.0-15.0); Potassium 4.5 mEq/L (3.5-5.1)
[2024-07-22 08:50] LABS: Absolute Eosinophils 0.3 K/uL (0-0.5); Absolute Lymphocytes (CBC) 1.6 K/uL (0.7-4.9); Absolute Monocytes 0.8 K/uL (0.1-1.3); Absolute Neutrophil 5.1 K/uL (1.8-8.0); Basophils % 0.2 % (0-1.3); Hematocrit 43.8 % (39.6-49.0); Hemoglobin 14.4 g/dL (13.6-17.9); Lymphocytes % 20.4 % (15.3-44.8); MCHC 32.8 g/dL (32.0-36.0); MCV 85.2 fL (80-100); MPV 8.3 fL (7.6-11.3); Monocytes % 9.9 % (3.3-12.3); Neutrophils % 65.5 % (41.7-73.7); Nucleated Red Blood Cells % 0.1 % (0-0); Platelets 240 thou/uL (152-406); RBC Red Blood Cell Count 5.14 M/uL (4.33-5.43); Red Cell Distribution Width 16.1 % (12.1-15.2)
--- NOTE | 2024-07-22 13:24 | P.PN ---
Subjective Date of Service: 07/22/24 Chief Complaint: DYPSNEA IS BETTER. Subjective: Improving Ludwin is morbidly obese gm with COPD, CHF, a. fib. DM and has fatigue and weakness. He is here for PT. complains a lot and constantly. Nurses are threatened by her. he is walking with walker and making an effort now. He is medically stable. Review of Systems 10-point ROS is otherwise unremarkable General: Weakness Physical Examination - Vital Signs Temperature: 98.2 F Blood Pressure: 130/78 Pulse: 66 Respirations: 18 Pulse Ox (%): 100 - Physical Exam General: Oriented x3, Obese (deconditioned.) HEENT: Atraumatic, PERRLA, EOMI Neck: Supple, JVD not distended Respiratory: Clear to auscultation bilaterally, Normal air movement Cardiovascular: Regular rate/rhythm, Normal S1 S2 Gastrointestinal: Normal bowel sounds, No tenderness Musculoskeletal: No tenderness Integumentary: No rashes Neurological: Normal speech, Normal tone, Normal affect Lymphatics: No axilla or inguinal lymphadenopathy - Studies Laboratory Data (last 24 hrs) 07/22/24 07/22/24 08:34 07:35 WBC 7.80 Hgb 14.4 Hct 43.8 Plt Count 240 Sodium 139 Potassium 4.5 BUN 57 H Creatinine 2.08 H Glucose 141 H Medications List Reviewed: Yes Assessment And Plan - Current Problems (Diagnosis) (1) COPD (chronic obstructive pulmonary disease) Current Visit: Yes Status: Acute Plan: CONT NEBS SPUTUM CULTURE NEG SO FAR. STABLE CLINICALLY. CONT NEBS ADD TRELLEGY IF THEY CAN AFFORD. IT HAS BEEN AN ISSUE FOR MANY PATIENTS THAT THEY CAN'T AFFORD PREVENTIVE INHALERS. I CALLED AND SHE DID NOT PHOTOGRAPHY PROFESSOR THE PHONE. SHE IS NOT AT BEDSIDE. I DID NOT LEAVE A MESSAGE IT WILL BE CONFIDENTIAL. DR. JONES STARTED FORMOTROL. CONT NEBS. STABLE. NO CHANGES. (2) History of atrial fibrillation Current Visit: Yes Status: Chronic (3) Pneumonia Current Visit: No Status: Acute Plan: REDO CXR HE IS ON AMOX CLAV AFTER FEW DAYS OF MERREM IV. HE DOES NOT HAVE ANY MAJOR SS FROM THIS. SPUTUM CS NEG SO FAR CONSULT DR. QUINONEZ. CXR NEG. DEMANDS STRONGER ANTIBIOTIC BUT HE DOES NOT NEED ONE. (4) Dehydration Current Visit: Yes Status: Acute Plan: REDUCE LASIX FROM 60 MG TO 20 MG DAILY STOP SPIRONOLACTONE. CONSULT HEATING AND VENTILATING TENDER. DAILY LABS. ALREADY IMPROVED AFTER I REDUCE DIURETICS. CREAT IS DOWN TO 2.08 KEEPS ON PUSHING ALL THE DOCTORS INCLUDING TIP FIXER TO GIVE HIM MORE DIURETICS THAN HE NEEDS AND GIVES MORE ON HER OWN AT HOME. (5) Chronic diastolic heart failure Current Visit: Yes Status: Chronic Plan: CURRENTLY NO SIGNS OF CHF. (6) Aspiration into airway Current Visit: Yes Status: Acute Plan: POSSIBLE. HE EATS LEANING BACKWARDS. HE IS DECONDITIONED. WILL DO MBS AND ST.
--- NOTE | 2024-07-22 20:20 | PN ---
Date of Progress Note: 07/22/2024 Time Of Service: 1:45 p.m. Subjective: Mr. Hsu is resting comfortably in between therapy sessions, off oxygen at this point . He has no new complaints. He is followed by Dr. George on the Primary Care Service, Dr. Granda on th e Renal Service, Dr. Fong of Pulmonary Service, and he is happy with his therapy so far. Objective: Mild myalgias, arthralgias. No rash. No headache. No weight change. No other complain ts. No shortness of breath. Physical Examination: Vital Signs: Blood pressure 130/78, pulse 66, respiratory rate 18, temperature 98, oxygen saturation 100%. General: Mr. Hsu again is lying comfortably. He is in no acute distress. HEENT: He appears normocephalic, atraumatic. Sclerae are anicteric. Oropharynx pink and moist. Neck: Supple. Chest: Clear. Heart: Regular. Laboratory Studies: His complete blood count with differential is unremarkable. His basic metabolic panel remarkable for elevated creatinine of 2.09. Blood glucose did range from 118 to 197. Calcium 10.0. X-ray/imaging: No new x-rays or imaging. Medications: Medications have been reviewed and are unchanged. Again, multiple services are managin g the patient's medications. Progress Made With Physical, Occupational, And Speech Therapy: Today with physical therapy, he did s [id number] transfers independently, multiple [id number] transfers done independently. He ambulat ed 125 feet twice, 175 feet once, and 180 feet twice with standby assistance. Able to ascend and madi cend 5 steps with bilateral handrails with 4 trials and did well. With occupational therapy, propell ed wheelchair from room to first floor and actually outside on the first floor, then back up to the [facility] floor with rest breaks, did very well. He did require minimum assistance for toilet hygiene. Alejo wise did complete 4 sets of wheelchair pushups. With occupational therapy, he was able to recall 4 unre lated pictures after 3 minutes on first attempt. They recalled later on 1 out of 4 and 2 out of 4 on a second attempt and 4 out of 4 on the third attempt. Five minutes later, he did 2 out of 4 of thos e. He compared in contrast questions in terms of answering such questions with 90% accuracy and mini mum assistance. Assessment And Plan: Mr. Hsu is a 73-year-old patient admitted to the rehabilitation unit with p neumonitis. He is doing well with physical, occupational, and speech therapy. He still has mild dec reased mobility, decreased physical functioning, some difficulty with sleep at night. He said he did have a great night's rest last night. He has trazodone. Melatonin 5 mg was added today. Also, he has nicotine patch for tobacco withdrawal. Potassium on board for his hypokalemia, simethicone for g as, Zofran for nausea. He is on glipizide for diabetes mellitus control, guaifenesin for cough, ramsey pentin for neuropathic pain, Lasix for his fluid management, Abilify for any psychotic issues. He gupta s Eliquis for DVT prophylaxis at 2.5 mg twice daily, nebulizer treatment on board with Brovana. He h as albuterol as well and amiodarone for heart rate control. In terms of his plan, again continue all those medications as noted. Continue with physical, occupational, and speech therapy and continue w [facility] full management of the Renal Service, Pulmonary Service, and Primary Care Service. RODOLFO/PARTH Voice ID: [id number] Report ID: [id number]
[2024-07-22] MEDS: MELATONIN 5 MG TABLET PO SCH (20:55)
[2024-07-23 06:01] LABS: Absolute Basophils 0.1 K/uL (0-0.5); Absolute Eosinophils 0.2 K/uL (0-0.5); Absolute Lymphocytes (CBC) 1.3 K/uL (0.7-4.9); Absolute Monocytes 0.8 K/uL (0.1-1.3); Absolute Neutrophil 4.3 K/uL (1.8-8.0); Basophils % 1.5 % (0-1.3); Eosinophils % 3.2 % (0-4.4); Hematocrit 38.5 % (39.6-49.0); Hemoglobin 12.8 g/dL (13.6-17.9); Lymphocytes % 19.7 % (15.3-44.8); MCH 28.3 pg (27.0-35.0); MCHC 33.3 g/dL (32.0-36.0); MCV 84.9 fL (80-100); MPV 8.1 fL (7.6-11.3); Monocytes % 11.6 % (3.3-12.3); Platelets 206 thou/uL (152-406); RBC Red Blood Cell Count 4.54 M/uL (4.33-5.43)
[2024-07-23 06:20] LABS: Anion Gap 7.4 mEq/L (5.0-15.0); Magnesium 2.6 mg/dL (1.6-2.4); Potassium 4.4 mEq/L (3.5-5.1); Prealbumin 22.3 mg/dL (20-40)
--- NOTE | 2024-07-23 13:12 | P.PN ---
Subjective Date of Service: 07/23/24 Chief Complaint: LOT BETTER Subjective: Improving OLIVIA WANTS TO GO HOME. HE IS WALKING WITH WALKER AROUND NURSES STATION. HE HAS NO MORE DYSPNEA. HE DOES NOT CARE IF IS NOT HAPPY WITH HIM COMING HOME. HE IS STABLE. Review of Systems 10-point ROS is otherwise unremarkable General: Weakness Physical Examination - Vital Signs Temperature: 97.8 F Blood Pressure: 122/64 Pulse: 62 Respirations: 16 Pulse Ox (%): 95 - Physical Exam General: Oriented x3, Mild distress, Obese HEENT: Atraumatic, PERRLA, EOMI Neck: Supple, JVD not distended Respiratory: Clear to auscultation bilaterally, Normal air movement Cardiovascular: Regular rate/rhythm, Normal S1 S2 Gastrointestinal: Normal bowel sounds, No tenderness Musculoskeletal: No tenderness Integumentary: No rashes Neurological: Normal speech, Normal tone, Normal affect Lymphatics: No axilla or inguinal lymphadenopathy - Studies Laboratory Data (last 24 hrs) 07/23/24 07/23/24 05:43 05:43 WBC 6.70 Hgb 12.8 L D Hct 38.5 L Plt Count 206 Sodium 139 Potassium 4.4 BUN 63 H Creatinine 2.19 H Glucose 148 H Magnesium 2.6 H Medications List Reviewed: Yes Assessment And Plan - Current Problems (Diagnosis) (1) COPD (chronic obstructive pulmonary disease) Current Visit: Yes Status: Acute Plan: CONT NEBS SPUTUM CULTURE NEG SO FAR. STABLE CLINICALLY. CONT NEBS ADD TRELLEGY IF THEY CAN AFFORD. IT HAS BEEN AN ISSUE FOR MANY PATIENTS THAT THEY CAN'T AFFORD PREVENTIVE INHALERS. I CALLED AND SHE DID NOT FUNERAL PLANNING COUNSELOR THE PHONE. SHE IS NOT AT BEDSIDE. I DID NOT LEAVE A MESSAGE IT WILL BE CONFIDENTIAL. DR. JONES STARTED FORMOTROL. CONT NEBS. STABLE. NO CHANGES. (2) History of atrial fibrillation Current Visit: Yes Status: Chronic (3) Pneumonia Current Visit: No Status: Acute Plan: REDO CXR HE IS ON AMOX CLAV AFTER FEW DAYS OF MERREM IV. HE DOES NOT HAVE ANY MAJOR SS FROM THIS. SPUTUM CS NEG SO FAR CONSULT DR. QUINONEZ. CXR NEG. DEMANDS STRONGER ANTIBIOTIC BUT HE DOES NOT NEED ONE. (4) Dehydration Current Visit: Yes Status: Acute Plan: REDUCE LASIX FROM 60 MG TO 20 MG DAILY STOP SPIRONOLACTONE. CONSULT FINE GRADE OPERATOR. DAILY LABS. ALREADY IMPROVED AFTER I REDUCE DIURETICS. STABLE CREAT AT ABOUT 2. CONT SMALL DOSE OF DIURETICS. (5) Chronic diastolic heart failure Current Visit: Yes Status: Chronic Plan: CURRENTLY NO SIGNS OF CHF. (6) Aspiration into airway Current Visit: Yes Status: Acute Plan: POSSIBLE. HE EATS LEANING BACKWARDS. HE IS DECONDITIONED. WILL DO MBS AND ST.
--- NOTE | 2024-07-23 15:00 | RAD REPORT ---
Procedure: Chest Single View HISTORY: Cough COMPARISON: July 18, 2024 FINDINGS: The lungs appear clear of acute infiltrate. No significant pleural effusion noted. The heart is mildly enlarged. Post surgical changes involve the chest. Pacemaker leads in place. IMPRESSION: No acute abnormality is displayed.
--- NOTE | 2024-07-23 18:51 | PN ---
Date of Progress Note: 07/23/2024 Subjective: The patient was admitted to the hospital with lower extremity paresis. The patient was transferred to the rehab for physical therapy. The patient had chronic kidney disease secondary to cardiorenal with acute kidney injury, over volume. The patient is doing well. Physical Examination: Vital Signs: When I saw the patient, blood pressure 186/85, pulse of 71, afebrile. Chest: Clear to auscultation. Heart: S1, S2. Systolic murmur. Abdomen: Soft, nontender. Extremities: No edema. Neurologic: Alert, pleasantly confused. No focality. Laboratory Data: WBC 5.6, hemoglobin 7.4. Sodium 132, potassium 3.9, bicarb 26, BUN 28, creatinine 5.2, calcium 8.7, phosphorus 4.7, albumin of 3. Current Medications: The patient is on include: 1. Pantoprazole. 2. Eliquis. 3. Amiodarone. 4. Abilify. 5. Gabapentin. 6. Lasix 20 mg daily. 7. Breathing treatment. 8. Glipizide. Assessment And Plan: 1. 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 I am going to continue current diuresis dose. 2. Hypertension, controlled, optimal. Continue current Lasix dose. 3. Congestive heart failure with cardiorenal syndrome, currently normal volume. Continue current Lasix dose. 4. With small size kidney, I am going to continue current treatment. We will monitor the patient. 5. Hypertension, not controlled. I am going to go ahead and increase his hydralazine. time spent examining the patient [id number] reviewing data lab and the radiology placing order discussing the case with the patient discussing the case with the count team clerk including hospitalist and nursing staff more than 55-minute VIVEK/PARTH Voice ID: [id number] Report ID: [id number] BETSEY
[2024-07-24 05:46] LABS: Absolute Basophils 0.1 K/uL (0-0.5); Absolute Eosinophils 0.3 K/uL (0-0.5); Absolute Lymphocytes (CBC) 1.3 K/uL (0.7-4.9); Absolute Monocytes 0.7 K/uL (0.1-1.3); Absolute Neutrophil 3.9 K/uL (1.8-8.0); Basophils % 1.5 % (0-1.3); Eosinophils % 4.1 % (0-4.4); Hemoglobin 12.7 g/dL (13.6-17.9); Lymphocytes % 20.5 % (15.3-44.8); MCH 28.4 pg (27.0-35.0); MCHC 33.5 g/dL (32.0-36.0); MCV 84.8 fL (80-100); MPV 8.5 fL (7.6-11.3); Monocytes % 11.8 % (3.3-12.3); Neutrophils % 62.1 % (41.7-73.7); Platelets 206 thou/uL (152-406); RBC Red Blood Cell Count 4.49 M/uL (4.33-5.43); Red Cell Distribution Width 16.3 % (12.1-15.2)
[2024-07-24 05:50] LABS: Anion Gap 8.1 mEq/L (5.0-15.0); Potassium 4.1 mEq/L (3.5-5.1)
[2024-07-24 07:24] VITALS: BP 151/68; TEMP 98
--- NOTE | 2024-07-24 13:35 | P.RH.PN ---
Estimated Length of Stay: 15 Expected Discharge Date: 07/24/24 Discharge Disposition Plan: Home Family Support: Yes Alf Goal: Mobility, Transfers, Self Care Vital Signs: Last Vital Signs Temp 98.0 F 07/24/24 07:24 Pulse 61 07/24/24 07:24 Resp 19 07/24/24 07:24 BP 151/68 H 07/24/24 07:24 Pulse Ox 98 07/24/24 07:24 Laboratory: Laboratory Last Values WBC 6.30 thou/uL (4.3-10.9) 07/24/24 05:07 RBC 4.49 M/uL (4.33-5.43) 07/24/24 05:07 Hgb 12.7 g/dL (13.6-17.9) L 07/24/24 05:07 Hct 38.0 % (39.6-49.0) L 07/24/24 05:07 MCV 84.8 fL (80-100) 07/24/24 05:07 MCH 28.4 pg (27.0-35.0) 07/24/24 05:07 MCHC 33.5 g/dL (32.0-36.0) 07/24/24 05:07 RDW 16.3 % (12.1-15.2) H 07/24/24 05:07 Plt Count 206 thou/uL (152-406) 07/24/24 05:07 MPV 8.5 fL (7.6-11.3) 07/24/24 05:07 Neutrophils % 62.1 % (41.7-73.7) 07/24/24 05:07 Lymphocytes % 20.5 % (15.3-44.8) 07/24/24 05:07 Monocytes % 11.8 % (3.3-12.3) 07/24/24 05:07 Eosinophils % 4.1 % (0-4.4) 07/24/24 05:07 Basophils % 1.5 % (0-1.3) H 07/24/24 05:07 Absolute Neutrophils 3.9 K/uL (1.8-8.0) 07/24/24 05:07 Absolute Lymphocytes 1.3 K/uL (0.7-4.9) 07/24/24 05:07 Absolute Monocytes 0.7 K/uL (0.1-1.3) 07/24/24 05:07 Absolute Eosinophils 0.3 K/uL (0-0.5) 07/24/24 05:07 Absolute Basophils 0.1 K/uL (0-0.5) 07/24/24 05:07 pH Cancelled 07/23/24 14:00 pCO2 Cancelled 07/23/24 14:00 pO2 Cancelled 07/23/24 14:00 HCO3 Cancelled 07/23/24 14:00 Base Excess Cancelled 07/23/24 14:00 Oxyhemoglobin Cancelled 07/23/24 14:00 ABG O2 Sat (Measured) Cancelled 07/23/24 14:00 ABG Carboxyhemoglobin Cancelled 07/23/24 14:00 ABG Methemoglobin Cancelled 07/23/24 14:00 Other Total Hgb Cancelled 07/23/24 14:00 Inspired O2 Cancelled 07/23/24 14:00 Sodium 138 mEq/L (136-145) 07/24/24 05:07 Potassium 4.1 mEq/L (3.5-5.1) 07/24/24 05:07 Chloride 106 mEq/L (98-107) 07/24/24 05:07 Carbon Dioxide 28 mEq/L (21-32) 07/24/24 05:07 Anion Gap 8.1 mEq/L (5.0-15.0) 07/24/24 05:07 BUN 59 mg/dL (7-18) H 07/24/24 05:07 Creatinine 1.99 mg/dL (0.70-1.30) H 07/24/24 05:07 Est GFR (CKD-EPI) 34 ml/min (=/>90) L 07/24/24 05:07 Glucose 135 mg/dL (74-106) H 07/24/24 05:07 POC Glucose 116 mg/dL (65-120) 07/23/24 16:20 Hemoglobin A1c 7.7 % (4.2-6.3) H 07/17/24 06:19 Calcium 9.7 mg/dL (8.5-10.1) 07/24/24 05:07 Magnesium 2.6 mg/dL (1.6-2.4) H 07/23/24 05:43 NT-Pro-B Natriuret Pep 1081 pg/mL (<450) H 07/18/24 22:05 Albumin 3.0 g/dL (3.4-5.0) L 07/23/24 05:43 Prealbumin 22.3 mg/dL (20-40) 07/23/24 05:43 Vitamin B12 376 pg/mL (193-986) 07/17/24 06:19 Urine Color Light-yellow (Yellow) 07/16/24 10:30 Urine Clarity Clear (Clear) 07/16/24 10:30 Urine pH 6.5 (5.0-7.0) 07/16/24 10:30 Ur Specific [place] 1.024 (1.005-1.030) 07/16/24 10:30 Glucose (UA)(Auto) 4+ (over) (Negative) H 07/16/24 10:30 Urine Ketones Negative (Negative) 07/16/24 10:30 Urine Blood Negative (Negative) 07/16/24 10:30 Urine Nitrite Negative (Negative) 07/16/24 10:30 Urine Bilirubin Negative (Negative) 07/16/24 10:30 Urine Urobilinogen Normal (Normal) 07/16/24 10:30 Ur Leukocyte Esterase Negative Luis/uL (Negative) 07/16/24 10:30 Urine RBC None seen /HPF (None Seen) 07/16/24 10:30 Urine WBC <5 /HPF (<5) 07/16/24 10:30 Ur Squamous Epith Cells <5 /HPF (None Seen) 07/16/24 10:30 Urine Bacteria None seen /HPF (<20) 07/16/24 10:30 Urine Yeast (Budding) Trace /HPF (None Seen) H 07/16/24 10:30 Urine Culture Reflexed Not needed 07/16/24 10:30 Ur Random Microalbumin 4.1 mg/dL (< 1.9) H 07/21/24 16:50 U Random Total Protein 19.6 mg/dL (<11.9) H 07/21/24 16:50 Urine Creatinine 53.0 mg/dL (20-370) 07/21/24 16:50 Urine Total Protein Trace (Negative) H 07/16/24 10:30 Weight: 280 lb Wound Present: No Closed Surgical Incision Present: No Negative Pressure Wound Therapy Present: No Physician Update: Labs are stable. Made fair overall progress with therapy. BIMS 15, SLUMS 25, met 3/4 STG and 1/4. Independent bed mobility, 15 steps independently. Met almost all OT goals. He will be discharged home today. Summary: Patient's care plan and port engineer goals have been reviewed and revised as necessary. Please see the Rehabilitation Signature page for all necessary signatures.
[2024-07-24 13:50] VITALS: O2SAT 98
--- NOTE | 2024-07-24 16:30 | P.PN ---
Subjective Date of Service: 07/24/24 Chief Complaint: LOT BETTER Subjective: Improving OLIVIA WANTS TO GO HOME. HE IS WALKING WITH WALKER AROUND NURSES STATION. HE HAS NO MORE DYSPNEA. HE DOES NOT CARE IF IS NOT HAPPY WITH HIM COMING HOME. HE IS STABLE. HE IS HAPPY TO GO HOME. HE IS ABLE TO AMBULATE LOT BETTER THAN AT HOME. IF DOES NOT EXERCISE, HE WILL BE BACK TO BEING WEAK. HE NEEDS TO FOLLOW PALEO DIET AND I SUSPECT THAT IS NOT GOING TO HAPPEN. HE NEEDS TO LOSE WEIGHT TO LIVE LONGER. I CALLED ONCE AND THERE WAS NO REPLY I NEVER SAW HER AT BEDSIDE WHEN I CAME TO SEE HIM DAILY. HIS CREATIINE IS LOT LOWER WITH REDUCTION OF DIURETICS. AT HOME WHO IS A EX NURSE CHANGES HIS DOSE TO HIGHER LEVEL WITHOUT ANY CONSULTATION WITH US. Physical Examination - Vital Signs Temperature: 98.0 F Blood Pressure: 151/68 Pulse: 61 Respirations: 19 Pulse Ox (%): 98 - Studies Laboratory Data (last 24 hrs) 07/24/24 07/24/24 05:07 05:07 WBC 6.30 Hgb 12.7 L Hct 38.0 L Plt Count 206 Sodium 138 Potassium 4.1 BUN 59 H Creatinine 1.99 H Glucose 135 H Medications List Reviewed: Yes Assessment And Plan - Current Problems (Diagnosis) (1) COPD (chronic obstructive pulmonary disease) Status: Acute Plan: CONT NEBS SPUTUM CULTURE NEG SO FAR. STABLE CLINICALLY. CONT NEBS ADD TRELLEGY IF THEY CAN AFFORD. IT HAS BEEN AN ISSUE FOR MANY PATIENTS THAT THEY CAN'T AFFORD PREVENTIVE INHALERS. I CALLED AND SHE DID NOT BOTTOM POUNDER CEMENT SHOES THE PHONE. SHE IS NOT AT BEDSIDE. I DID NOT LEAVE A MESSAGE IT WILL BE CONFIDENTIAL. DR. JONES STARTED FORMOTROL. CONT NEBS. STABLE. NO CHANGES. (2) History of atrial fibrillation Status: Chronic (3) Pneumonia Status: Acute Plan: REDO CXR HE IS ON AMOX CLAV AFTER FEW DAYS OF MERREM IV. HE DOES NOT HAVE ANY MAJOR SS FROM THIS. SPUTUM CS NEG SO FAR CONSULT DR. QUINONEZ. CXR NEG. DEMANDS STRONGER ANTIBIOTIC BUT HE DOES NOT NEED ONE. (4) Dehydration Status: Acute Plan: REDUCE LASIX FROM 60 MG TO 20 MG DAILY STOP SPIRONOLACTONE. CONSULT LIBRARIAN SPECIALIST. DAILY LABS. ALREADY IMPROVED AFTER I REDUCE DIURETICS. STABLE CREAT AT ABOUT 2. CONT SMALL DOSE OF DIURETICS. (5) Chronic diastolic heart failure Status: Chronic Plan: CURRENTLY NO SIGNS OF CHF. (6) Aspiration into airway Status: Acute Plan: POSSIBLE. HE EATS LEANING BACKWARDS. HE IS DECONDITIONED. WILL DO MBS AND ST.
== END 2024-07-24 15:30 | disposition home health service (06) | DRG 947 ==
LOC: 5TH 10:30
PROVIDERS: ADMIT Internal Medicine; ATTEND Internal Medicine
DX: R53.81 Other malaise (principal); I50.43 Acute on chronic combined systolic (congestive) and diastolic (congestive) heart failure; J18.9 Pneumonia, unspecified organism; N18.4 Chronic kidney disease, stage 4 (severe); I13.0 Hypertensive heart and chronic kidney disease with heart failure and stage 1 through stage 4 chronic kidney disease, or unspecified chronic kidney disease; N17.9 Acute kidney failure, unspecified; F43.10 Post-traumatic stress disorder, unspecified; F41.9 Anxiety disorder, unspecified; B19.20 Unspecified viral hepatitis C without hepatic coma; E78.5 Hyperlipidemia, unspecified; I48.91 Unspecified atrial fibrillation; I25.10 Atherosclerotic heart disease of native coronary artery without angina pectoris; G47.33 Obstructive sleep apnea (adult) (pediatric); E11.42 Type 2 diabetes mellitus with diabetic polyneuropathy; J44.9 Chronic obstructive pulmonary disease, unspecified; F17.200 Nicotine dependence, unspecified, uncomplicated; E11.22 Type 2 diabetes mellitus with diabetic chronic kidney disease; I27.81 Cor pulmonale (chronic); E86.0 Dehydration; E66.9 Obesity, unspecified; Z68.38 Body mass index [BMI] 38.0-38.9, adult; G47.00 Insomnia, unspecified
CPT/HCPCS: 36415; 71045; 71046; 74230; 76770; 80048; 81001; 82040; 82043; 82570; 82607; 82947; 83036; 83735; 83880; 84134; 84156; 85025; 87070; 87086; 87088; 87205; 92523; 92611; 97110; 97116; 97129; 97163; 97165; 97530; 97542; J1815; J3420; J7605; J7613; J7644; Q0162

== ENCOUNTER 2024-09-09 08:15 | Inpatient (IN) | payer OTHER ==
[2024-09-09] MEDS ORDERED: NA CHLORIDE 0.9% 500 ML ONE (08:54)
[2024-09-09 08:58] LABS: Absolute Basophils 0.1 K/uL (0-0.5); Absolute Eosinophils 0.1 K/uL (0-0.5); Absolute Lymphocytes (CBC) 0.4 K/uL (0.7-4.9); Absolute Monocytes 0.8 K/uL (0.1-1.3); Absolute Neutrophil 5.2 K/uL (1.8-8.0); Basophils % 0.9 % (0-1.3); Eosinophils % 1.4 % (0-4.4); Hematocrit 36.1 % (39.6-49.0); Hemoglobin 12.1 g/dL (13.6-17.9); Lymphocytes % 5.6 % (15.3-44.8); MCH 28.5 pg (27.0-35.0); MCHC 33.5 g/dL (32.0-36.0); MCV 85.2 fL (80-100); MPV 8.2 fL (7.6-11.3); Neutrophils % 80.1 % (41.7-73.7); Platelets 171 thou/uL (152-406); RBC Red Blood Cell Count 4.24 M/uL (4.33-5.43); Red Cell Distribution Width 15.1 % (12.1-15.2)
[2024-09-09 09:23] LABS: ALT/SGPT 15 U/L (16-61); Albumin 3.1 g/dL (3.4-5.0); Albumin/Globulin Ratio 0.9 (1.1-1.8); Alkaline Phosphatase 75 U/L (45-117); Anion Gap 7.4 mEq/L (5.0-15.0); BUN Blood Urea Nitrogen 28 mg/dL (7-18); Bicarbonate 31 mEq/L (21-32); Bilirubin Total 0.4 mg/dL (0.2-1.0); Globulin 3.6 g/dL (2.3-3.5); Glomerular Filtration Rate 38 ml/min (=/>90); Glucose Level 171 mg/dL (74-106); Magnesium 1.9 mg/dL (1.6-2.4); Potassium 3.4 mEq/L (3.5-5.1); Protein, Total 6.7 g/dL (6.4-8.2); Sodium Level 137 mEq/L (136-145); Troponin High Sensitivity 34.9 pg/mL (<58.9)
[2024-09-09 09:25] LABS: AST/SGOT < 10 U/L (15-37); Bilirubin Direct < 0.2 mg/dL (0-0.2); Bilirubin Indirect, Calculated 0.2 mg/dL (0.2-0.8)
--- NOTE | 2024-09-09 10:15 | RAD REPORT ---
EXAMINATION: ONE VIEW CHEST XR CLINICAL INDICATION: Male, 73 years old.,weakness TECHNIQUE: Frontal chest projection is submitted. Examination is limited by patient positioning and t echnique. COMPARISON: 07/23/2024 FINDINGS: The lungs are well inflated and clear apart from left basilar atelectasis.. No pneumothorax or sizab le effusion. The heart is normal in size. Mediastinal contours are unremarkable. IMPRESSION: No acute intrathoracic abnormalities.
[2024-09-09 11:09] LABS: Specific Gravity 1.019 (1.005-1.030); Sqamous Epithelial <5 /HPF (None Seen); Urine Bacteria None Seen /HPF (<20); Urine Bilirubin NEGATIVE (Negative); Urine Blood Negative (Negative); Urine Clarity Clear (Clear); Urine Color Light-Yellow (Yellow); Urine Glucose 4+ (Over) (Negative); Urine Ketones NEGATIVE (Negative); Urine Micro Reflex YN NO BILL MICROSCOPIC; Urine Nitrite NEGATIVE (Negative); Urine Protein TRACE (Negative); Urine RBC <5 /HPF (None Seen); Urine Urobilinogen Normal (Normal); Urine WBC <5 /HPF (<5)
--- NOTE | 2024-09-09 11:25 | ER ---
Nurse's Notes [facility] Name: Ludwin Hsu Age: 73 yrs Sex: Male : 1950 Arrival Date: 09/09/2024 Time: 08:15 Bed 13 Private MD: Diagnosis: Generalized weakness Presentation: 09/09 08:18 Chief complaint: EMS states: GENERAL WEAKNESS FROM HOME. USES WALKER. TODAY WOKE UP AND db WAS NOT ABLE TO GET OUT OF BED. WAS FEEL WEAK. DENIES FALLS OR LOC. STATES DRANK 1 BIG CUP OF COFFEE TODAY. Coronavirus screen: Client denies travel out of the [place] in the last 14 days. At this time, the client does not indicate any symptoms associated with coronavirus-19. Ebola Screen: Patient negative for fever greater than or equal to 101.5 degrees Fahrenheit, and additional compatible Ebola Virus Disease symptoms Patient denies exposure to infectious person. Patient denies travel to an Ebola-affected area in the 21 days before illness onset. No symptoms or risks identified at this time. Initial Sepsis Screen: Does the patient meet any 2 criteria? No. Patient's initial sepsis screen is negative. Does the patient have a suspected source of infection? No. Patient's initial sepsis screen is negative. Risk Assessment: Do you want to hurt yourself or someone else? Patient reports no desire to harm self or others. Onset of symptoms was September 09, 2024. 08:18 Method Of Arrival: EMS: [facility] db 08:18 Acuity: NGUYEN 3 db Triage Assessment: 08:26 General: Appears in no apparent distress. comfortable, Behavior is calm, cooperative. db Pain: Denies pain. Neuro: Level of Consciousness is awake, alert, obeys commands, Oriented to person, place, time, situation. Respiratory: Airway is patent Respiratory effort is even, unlabored, Respiratory pattern is regular, symmetrical. Historical: - Allergies: 08:26 NKA; db - Home Meds: 11:26 Eliquis oral [Active]; amlodipine oral [Active]; furosemide 60 mg Oral tab once db [Active]; - PMHx: 08:26 Atrial fibrillation; CHF; COPD; Hypertensive disorder; diabetes mellitus; db - PSHx: 08:26 Coronary artery bypass graft; pacemaker; db - Immunization history:: Adult Immunizations not immunized. - Infectious Disease History:: Denies. - Social history:: Smoking status: unknown. - Family history:: not pertinent. Screenin:28 [facility] ED Fall Risk Assessment (Adult) History of falling in the last 3 months, db including since admission No falls in past 3 months (0 pts) Confusion or Disorientation No (0 pts) Intoxicated or Sedated No (0 pts) Impaired Gait Yes (1 pt) Mobility Assist Device Used Yes (1 pt) Altered Elimination No (0 pt) Score/Fall Risk Level 0 - 2 = Low Risk Oriented to surroundings, Maintained a safe environment. Abuse screen: Denies threats or abuse. Denies injuries from another. Nutritional screening: No deficits noted. Tuberculosis screening: No symptoms or risk factors identified. Assessment: 08:28 Reassessment: Patient appears in no apparent distress at this time. Patient and/or db family updated on plan of care and expected duration. Pain level reassessed. Patient is alert, oriented x 3, equal unlabored respirations, skin warm/dry/pink. SEE TRIAGE FOR INITIAL ASSESSMENT. Vital Signs: 08:18 BP 97 / 48; Pulse 60; Resp 18; Temp 98.6(O); Pulse Ox 96% ; Weight 127.01 kg; Height 6 db ft. 0 in. ; Pain 0/10; 08:37 BP 101 / 52; Pulse 60; Resp 16; Pulse Ox 94% on R/A; db 09:30 BP 124 / 63; Pulse 60; Resp 14; Pulse Ox 95% ; db 10:00 BP 139 / 64; Pulse 60; Resp 14; Pulse Ox 97% ; db 11:00 BP 127 / 69; Pulse 60; Resp 16; Pulse Ox 98% on R/A; db 11:30 BP 122 / 58; Pulse 60; Resp 16; Temp 98.6; Pulse Ox 96% ; db 08:18 Body Mass Index 37.97 (127.01 kg, 182.88 cm) db 08:18 Pain Scale: Adult db Vitals: 08:45 Cardiac Rhythm Assessment Paced. db ED Course: 08:18 Patient arrived in ED. bd 08:21 Miguel Guevara MD is Attending Physician. rt 08:24 Estela Piña, RN is Primary Nurse. db 08:26 Triage completed. db 08:26 Arm band placed on Patient placed in an exam room. db 08:45 Patient has correct armband on for positive identification. Bed in low position. Call db light in reach. Side rails up X2. Client placed on continuous cardiac and pulse oximetry monitoring. NIBP monitoring applied. marketing services rep on. Pulse ox on. NIBP on. Pillow given. 08:45 Missed attempt(s): 20 gauge in right antecubital area. Bleeding controlled, band aid db applied, catheter tip intact. 08:51 Initial lab(s) drawn, by me, sent to lab. Inserted saline lock: 22 gauge in right db wrist, using aseptic technique. Blood collected. Flushed with 10 mL NS. 09:39 XRAY Chest (1 view) In Process Unspecified. EDMS 11:00 Assisted with urinal. [facility] 11:00 Urine collected: clean catch specimen, clear. [facility] 11:22 Baldev George MD is Hospitalizing Provider. rt Administered Medications: 08:52 Drug: NS 0.9% IV 500 ml 500 ml IV at 1 bolus once; to be given as a bolus over 30 db minutes Volume: 500 ml; Route: IV; Rate: 1 bolus; Site: right wrist; Medication: 08:28 VIS not applicable for this client. db Outcome: 11:24 Decision to Hospitalize by Provider. rt 12:58 Patient left the ED. db Signatures: Dispatcher [employer] WINFL [place] Kaitlyn, RN RN [id number] Estela Piña, STEPHEN RN db Miguel Guevara MD MD rt
--- NOTE | 2024-09-09 11:25 | EDPHYS ---
Physician Documentation [facility] Name: Ludwin Hsu Age: 73 yrs Sex: Male : 1950 Arrival Date: 09/09/2024 Time: 08:15 Bed 13 Private MD: ED Physician Miguel Guevara HPI: 09/09 08:30 This 73 yrs old Male presents to ER via EMS with complaints of General Weakness. rt 08:30 Patient presents to the ED with generalized weakness starting this morning. Patient rt states that he is usually able to ambulate without a walker. States that he has been able able to get out of bed even. Denies any pain, other acute complaints, symptoms are moderate in severity, no other aggravating or alleviating factors.. Historical: - Allergies: 08:26 NKA; db - Home Meds: : Eliquis oral [Active]; amlodipine oral [Active]; furosemide 60 mg Oral tab once db [Active]; - PMHx: 08:26 Atrial fibrillation; CHF; COPD; Hypertensive disorder; diabetes mellitus; db - PSHx: 08:26 Coronary artery bypass graft; pacemaker; db - Immunization history:: Adult Immunizations not immunized. - Infectious Disease History:: Denies. - Social history:: Smoking status: unknown. - Family history:: not pertinent. ROS: 08:30 Constitutional: Negative for fever, chills, and weight loss, Cardiovascular: Negative rt for chest pain, palpitations, and edema, Respiratory: Negative for shortness of breath, cough, wheezing, and pleuritic chest pain, Abdomen/GI: Negative for abdominal pain, nausea, vomiting, diarrhea, and constipation, Skin: Negative for injury, rash, and discoloration, 08:30 Neuro: Positive for weakness, Negative for altered mental status, Exam: 08:30 Constitutional: This is a well developed, well nourished patient who is awake, alert, rt and in no acute distress. Head/Face: Normocephalic, atraumatic. Chest/axilla: Normal chest wall appearance and motion. Nontender with no deformity. No lesions are appreciated. Cardiovascular: Regular rate and rhythm with a normal S1 and S2. No gallops, murmurs, or rubs. Normal PMI, no JVD. No pulse deficits. Respiratory: Lungs have equal breath sounds bilaterally, clear to auscultation and percussion. No rales, rhonchi or wheezes noted. No increased work of breathing, no retractions or nasal flaring. Abdomen/GI: Soft, non-tender, with normal bowel sounds. No distension or tympany. No guarding or rebound. No evidence of tenderness throughout. Skin: Warm, dry with normal turgor. Normal color with no rashes, no lesions, and no evidence of cellulitis. MS/ Extremity: Pulses equal, no cyanosis. Neurovascular intact. Full, normal range of motion. 08:30 ENT: Dry mucous membranes. 09:19 ECG was reviewed by the Attending Physician. rt Vital Signs: 08:18 BP 97 / 48; Pulse 60; Resp 18; Temp 98.6(O); Pulse Ox 96% ; Weight 127.01 kg; Height 6 db ft. 0 in. ; Pain 0/10; 08:37 BP 101 / 52; Pulse 60; Resp 16; Pulse Ox 94% on R/A; db 09:30 BP 124 / 63; Pulse 60; Resp 14; Pulse Ox 95% ; db 10:00 BP 139 / 64; Pulse 60; Resp 14; Pulse Ox 97% ; db 11:00 BP 127 / 69; Pulse 60; Resp 16; Pulse Ox 98% on R/A; db 11:30 BP 122 / 58; Pulse 60; Resp 16; Temp 98.6; Pulse Ox 96% ; db 08:18 Body Mass Index 37.97 (127.01 kg, 182.88 cm) db 08:18 Pain Scale: Adult db MDM: 08:21 Medical Screening Exam initiated rt 13:23 Differential Diagnosis Generalized weakness, anemia, electrolyte disturbance, rt dehydration. Data reviewed: vital signs, nurses notes, lab test result(s), EKG, radiologic studies. Consideration of Admission/Observation Patient was admitted/placed on observation. Management of patient was discussed with the following: Primary Care Provider: Discussed with Dr. George, will admit patient to the hospital. I considered the following discharge prescriptions or medication management in the emergency department Medications were administered in the Emergency Department. See MAR. Independent interpretation of the following test(s) in the Emergency Department X-Ray: My interpretation is No infiltrate seen on interpretation of x-ray images. Test considered but Not performed: CT: No lateralizing symptoms, low suspicion for CVA, CT of the head is not indicated. Care significantly affected by the following chronic conditions: Congestive Heart Failure. Counseling: I had a detailed discussion with the patient and/or guardian regarding the historical points, exam findings, and any diagnostic results supporting the discharge/admit diagnosis, lab results, radiology results, the need for further work-up and treatment in the hospital. Response to treatment: There is no appreciated change of the patient's symptoms at this time. 09/09 08:22 Order name: Basic Metabolic Panel; Complete Time: 10:21 rt 09/09 08:22 Order name: CBC with Diff; Complete Time: 10:21 rt 09/09 08:22 Order name: LFT's; Complete Time: 10:21 rt 09/09 08:22 Order name: Magnesium; Complete Time: 10:21 rt 09/09 08:22 Order name: Troponin HS; Complete Time: 10:21 rt 09/09 08:22 Order name: UA W/ Microscopic; Complete Time: 11:10 rt 09/09 11:33 Order name: CRP; Complete Time: 12:24 rt 09/09 08:22 Order name: XRAY Chest (1 view); Complete Time: 10:21 rt 09/09 08:22 Order name: EKG; Complete Time: 08:23 rt 09/09 08:22 Order name: Cardiac monitoring; Complete Time: 08:57 rt 09/09 08:22 Order name: EKG - Nurse/Tech; Complete Time: 08:57 rt 09/09 08:22 Order name: IV Saline Lock; Complete Time: 08:57 rt 09/09 08:22 Order name: Labs collected and sent; Complete Time: 08:57 rt 09/09 08:22 Order name: O2 Per Protocol; Complete Time: 08:24 rt 09/09 08:22 Order name: O2 Sat Monitoring; Complete Time: 08:24 rt EC:19 Rate is 60 beats/min. Rhythm is regular, Paced with No ectopy. Left axis deviation rt noted. No Q waves. No ST changes noted. Administered Medications: 08:52 Drug: NS 0.9% IV 500 ml 500 ml IV at 1 bolus once; to be given as a bolus over 30 db minutes Volume: 500 ml; Route: IV; Rate: 1 bolus; Site: right wrist; Disposition Summary: 09/09/24 11:24 Hospitalization Ordered Notes: Hospitalization Status: Observation rt Provider: Baldev George rt Location: Telemetry/MedSurg (observation) rt Condition: Stable rt Problem: new rt Symptoms: are unchanged rt Bed/Room Type: Standard rt Room Assignment: 409(09/09/24 11:33) bd Diagnosis - Generalized weakness rt Forms: - Medication Reconciliation Form rt - SBAR form rt - Leadership Thank You Letter rt Signatures: Dispatcher [employer] EDSydney Connelly Danielle, RN RN Miguel Valencia MD MD rt Corrections: (The following items were deleted from the chart) 11:33 11:24 rt bd
--- NOTE | 2024-09-09 13:05 | P.HP ---
Patient History Date of Service: 09/09/24 Reason for admission: WEAK, COULD NOT GET OUT OF BED History of Present Illness: OLIVIA HAS COPD, COR PULMONALE, DIASTOLIC HEART FAILURE AND WAS STABLE UNTIL YEST. THIS AM HE COULD NOT GET OUT OF BED. I ASKED DR. BLISS TO DO CRP FOR PMR. CRP IS HIGH. I ALSO ASKED REHAB LIASON TO SEE HIM FOR REHAB ADMISSION. HE HAS NO MORE DYSPNEA, PAIN OR FEVER. Allergies No Known Allergies Allergy (Verified 07/16/24 14:35) Home medications list reviewed: Yes Home Medications: Magnesium Oxide 400 mg PO BID 05/11/22 Metoprolol Succinate [Toprol Xl*] 12.5 mg PO DAILY PRN 05/11/22 Potassium Chloride [Klor-Con 10] 40 meq PO BID 11/21/22 glipiZIDE [Glipizide] 5 mg PO DAILY PRN 11/21/22 Apixaban [Eliquis] 5 mg PO BID 01/28/24 Aripiprazole [Abilify] 30 mg PO DAILY 01/28/24 Empagliflozin [Jardiance] 25 mg PO DAILY 01/28/24 Gabapentin [Neurontin*] 2 tab PO BEDTIME 01/28/24 Trazodone HCl 2 mg PO BEDTIME 01/28/24 Clotrim/Betameth Cream [Lotrisone Cream*] 1 appl TOP DAILY #1 tube 01/31/24 Amiodarone HCl [Cordarone*] 200 mg PO BID 03/19/24 Spironolactone 50 mg PO DAILY #90 tab 03/20/24 Ensure Max Protein 330 ml PO BIDAC #60 can 06/11/24 Furosemide [Lasix*] 40 mg PO BIDAC #60 tab 06/11/24 - Past Medical/Surgical History Diabetic: Yes -: Hypertension -: Diabetes mellitus type 2 -: Posttraumatic stress disorder -: Anxiety -: Hepatitis-C -: Hyperlipidemia -: CAD, stent placement x2, atrial fibrillation, chronic diastolic CHF -: Obstructive sleep apnea -: Obesity -: Diabetic neuropathy -: History pancreatitis -: COPD, tobacco abuse -: 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 - Family History Father -: Other (see notes) Notes: CHF Mother -: Cancer Notes: breast cancer Sister -: Cancer Notes: colon cancer Brother -: Cancer Notes: throat cancer - Social History Alcohol use: No CD- Drugs: No Caffeine use: No Review of Systems 10-point ROS is otherwise unremarkable General: Weakness, Malaise, As per HPI Respiratory: As per HPI Physical Examination - Physical Exam General: Oriented x3, Mild distress, Obese HEENT: Atraumatic, PERRLA, Mucous membr. moist/pink, EOMI, Sclerae nonicteric Neck: Supple, 2+ carotid pulse no bruit, No LAD, Without JVD or thyroid abnormality Respiratory: Clear to auscultation bilaterally, Normal air movement Cardiovascular: Regular rate/rhythm, Normal S1 S2 Gastrointestinal: Normal bowel sounds, No tenderness Musculoskeletal: No tenderness Integumentary: No rashes Neurological: Abnormal strength (3/5 GEN WEAK.) Lymphatics: No axilla or inguinal lymphadenopathy - Studies Laboratory Data (last 24 hrs) 09/09/24 09/09/24 08:51 08:51 WBC 6.50 Hgb 12.1 L Hct 36.1 L Plt Count 171 Sodium 137 Potassium 3.4 L BUN 28 H Creatinine 1.85 H Glucose 171 H Magnesium 1.9 Total Bilirubin 0.4 AST < 10 L ALT 15 L Alkaline Phosphatase 75 Assessment and Plan - Problems (Diagnosis) (1) General weakness Current Visit: No Status: Acute Plan: CRP HIGH PMR LIKELY STEROID TRIAL. CHECK RF, NED. ACRA. REHAB CONSULT. - Advance Directives Does patient have a Living Will: No Does patient have a Durable POA for Healthcare: No
[2024-09-09] MEDS: dexAMETHasone 4 MG/ML VIAL IV ONE (14:20)
[2024-09-09 17:34] LABS: Thyroid Stimulating Hormone 0.586 uIU/mL (0.358-3.740)
[2024-09-09] MEDS ORDERED: HOME MED 1 EA UNK (Losartan Potassium [Cozaar] 25 MG Tablet) PO PRN (17:51)
[2024-09-09] MEDS ORDERED: LOSARTAN POTASSIUM 50 MG TABLET PO PRN (17:55)
[2024-09-09] MEDS ORDERED: HOME MED 1 EA UNK (Trazodone Hcl [Trazodone Hcl] 100 MG Tablet) PO SCH (21:00)
[2024-09-09] MEDS: AMIODARONE HCL 200 MG TAB PO SCH (21:37)
[2024-09-09] MEDS: TRAZODONE 50 MG TABLET PO SCH (21:37)
[2024-09-09] MEDS: APIXABAN 5 MG TABLET PO SCH (21:37)
[2024-09-09] MEDS: GABAPENTIN 400 MG CAP PO SCH (21:37)
[2024-09-09] MEDS: POTASSIUM CL SA 10 MEQ TAB PO SCH (21:38)
[2024-09-09] MEDS: TRAZODONE 150 MG TAB PO SCH (21:38)
[2024-09-10] MEDS ORDERED: ARIPIPRAZOLE 30 MG PO SCH (09:00)
[2024-09-10] MEDS: Empagliflozin [Jardiance] 25 MG Tablet *PT OWN MED PO SCH (09:00)
[2024-09-10] MEDS ORDERED: predniSONE 20 MG TAB PO SCH (09:00)
[2024-09-10] MEDS: IPRATROPIUM BROM 0.5MG/2.5ML NEB SCH (10:00)
[2024-09-10] MEDS: ALBUTEROL 2.5 MG/3 ML NEB SOL NEB SCH (10:00)
[2024-09-10] MEDS: predniSONE 20 MG TAB PO SCH (10:13)
[2024-09-10] MEDS: FUROSEMIDE 40 MG TABLET PO SCH (10:13)
[2024-09-10] MEDS: ACETAMINOPHEN 500 MG TAB PO PRN (10:14)
[2024-09-10] MEDS: ARIPiprazole 5 MG TAB PO SCH (10:15)
--- NOTE | 2024-09-10 11:44 | EKG ---
Test Date: 2024-09-09 Test Time: 08:40:17 Physical Therapy Attendant: KAIDEN MEASUREMENT RESULTS: Intervals: Rate: 60 MN: QRSD: 238 QT: 572 QTc: 572 [place]: P: 89 MN: QRS: -72 T: 24 INTERPRETIVE STATEMENTS: Sinus tachycardia with complete heart block and Ventricular-paced rhythm Abnormal ECG Compared to ECG 07/13/2024 08:02:11 AV block, complete (third-degree) now present Electronically Signed On 09-10-24 11:40:47 CDT by Maicol Crooks
[2024-09-10 13:29] VITALS: BMI 38.0
--- NOTE | 2024-09-10 15:00 | P.PN ---
Subjective Date of Service: 09/10/24 Chief Complaint: WEAK, COULD NOT GET OUT OF BED Subjective: Improving HE IS STRONGER BUT TODAY HAS COMPLAINT OF HEADACHE ON R [employer]. I TOLD HIM THAT HE MAY HAVE GCA BUT HE WANTS NO SURGERY OR BIOPSY. I TOLD HIM THAT HE CAN HAVE STROKE OR BLINDNESS BUT HE SAYS HE WILL TAKE HIS CHANCES. MEANWHILE CALLS DAILY SCREAMING AT STAFF. SHE WAS SUPPOSED TO BE HERE AT 8 AM TO MEET ME AND SHE DID NOT COME. TOLD ME TO IGNORE HER SHE YELLS DAILY LIKE THAT. Review of Systems 10-point ROS is otherwise unremarkable General: Weakness Physical Examination - Vital Signs Temperature: 97.6 F Blood Pressure: 134/69 Pulse: 61 Respirations: 16 Pulse Ox (%): 93 - Physical Exam General: Mild distress, Obese HEENT: Atraumatic, PERRLA, EOMI Neck: Supple, JVD not distended Respiratory: Clear to auscultation bilaterally, Normal air movement Cardiovascular: Regular rate/rhythm, Normal S1 S2 Gastrointestinal: Normal bowel sounds, No tenderness Musculoskeletal: No tenderness Integumentary: No rashes Neurological: Normal speech, Normal tone, Normal affect Lymphatics: No axilla or inguinal lymphadenopathy - Studies Medications List Reviewed: Yes Assessment And Plan - Current Problems (Diagnosis) (1) General weakness Current Visit: No Status: Acute Plan: CRP HIGH PMR LIKELY STEROID TRIAL. CHECK RF, NED. ACRA. REHAB CONSULT. (2) Diabetes mellitus due to underlying condition with chronic kidney disease on chronic dialysis Current Visit: Yes Status: Chronic Plan: FOLLOW LAB. CREAT HIGH FROM DIURETIC ALSO. (3) COPD (chronic obstructive pulmonary disease) Current Visit: No Status: Chronic Plan: NEBS STARTED. (4) Giant cell arteritis Current Visit: Yes Status: Acute Plan: THIS IS POSSIBLE. CLINICAL DIAGNOSIS. HE REFUSES TO DO BIOPSY TREAT EMPIRIC. HE UNDERSTANDS. GLUCOSE WILL GO UP. WILL FU.
[2024-09-10] MEDS: INSULIN REGULAR (HUMAN) 100 UNIT/ML SQ SCH (16:44)
[2024-09-11] MEDS: INSULIN REGULAR (HUMAN) 100 UNIT/ML SQ SCH (07:30)
[2024-09-11] MEDS: predniSONE 20 MG TAB PO SCH (08:31)
[2024-09-11 08:59] LABS: Absolute Lymphocytes (CBC) 0.6 K/uL (0.7-4.9); Absolute Monocytes 0.7 K/uL (0.1-1.3); Absolute Neutrophil 6.6 K/uL (1.8-8.0); Basophils % 0.3 % (0-1.3); Eosinophils % 0.1 % (0-4.4); Hematocrit 43.1 % (39.6-49.0); Hemoglobin 14.4 g/dL (13.6-17.9); Lymphocytes % 7.5 % (15.3-44.8); MCH 28.4 pg (27.0-35.0); MCHC 33.3 g/dL (32.0-36.0); MCV 85.1 fL (80-100); MPV 8.3 fL (7.6-11.3); Monocytes % 8.8 % (3.3-12.3); Neutrophils % 83.3 % (41.7-73.7); Nucleated Red Blood Cells % 0.1 % (0-0); Platelets 177 thou/uL (152-406); RBC Red Blood Cell Count 5.06 M/uL (4.33-5.43); Red Cell Distribution Width 15.2 % (12.1-15.2)
[2024-09-11 09:16] LABS: Anion Gap 10.5 mEq/L (5.0-15.0); Potassium 3.5 mEq/L (3.5-5.1)
[2024-09-11 09:36] LABS: SARS-CoV-2 Antigen Rapid Res Negative (Negative)
--- NOTE | 2024-09-11 13:58 | P.PN ---
Subjective Date of Service: 09/11/24 Chief Complaint: DOING BETTER, SORE THROAT Subjective: Improving HE IS STRONGER BUT TODAY HAS COMPLAINT OF HEADACHE ON R [employer]ISM. I TOLD HIM THAT HE MAY HAVE GCA BUT HE WANTS NO SURGERY OR BIOPSY. I TOLD HIM THAT HE CAN HAVE STROKE OR BLINDNESS BUT HE SAYS HE WILL TAKE HIS CHANCES. MEANWHILE CALLS DAILY SCREAMING AT STAFF. SHE WAS SUPPOSED TO BE HERE AT 8 AM TO MEET ME AND SHE DID NOT COME. TOLD ME TO IGNORE HER SHE YELLS DAILY LIKE THAT. HE IS STRONGER. DOING PT WHILE WHEN HE CAME HE COULD NOT GET OUT OF BED. HE HAS SORE THROAT NOW. COVID NEG. HE REFUSED TO DO TEST FIRST AND THEN I HAD [employer] TALK TO HIM. Review of Systems 10-point ROS is otherwise unremarkable General: Weakness, As per HPI Physical Examination - Vital Signs Temperature: 97.7 F Blood Pressure: 156/68 Pulse: 63 Respirations: 14 Pulse Ox (%): 94 - Physical Exam General: Oriented x3, Mild distress, Obese HEENT: Atraumatic, PERRLA, EOMI Neck: Supple, JVD not distended Respiratory: Clear to auscultation bilaterally, Normal air movement Cardiovascular: Regular rate/rhythm, Normal S1 S2 Gastrointestinal: Normal bowel sounds, No tenderness Musculoskeletal: No tenderness Integumentary: No rashes Neurological: Normal tone, Normal affect, Abnormal strength Lymphatics: No axilla or inguinal lymphadenopathy - Studies Medications List Reviewed: Yes Assessment And Plan - Current Problems (Diagnosis) (1) General weakness Current Visit: No Status: Acute Plan: CRP HIGH PMR LIKELY STEROID TRIAL. CHECK RF, NED. ACRA. REHAB CONSULT. (2) Diabetes mellitus due to underlying condition with chronic kidney disease on chronic dialysis Current Visit: Yes Status: Chronic Plan: FOLLOW LAB. CREAT HIGH FROM DIURETIC ALSO. (3) COPD (chronic obstructive pulmonary disease) Current Visit: No Status: Chronic Plan: NEBS STARTED. (4) Giant cell arteritis Current Visit: Yes Status: Acute Plan: THIS IS POSSIBLE. CLINICAL DIAGNOSIS. HE REFUSES TO DO BIOPSY TREAT EMPIRIC. HE UNDERSTANDS. GLUCOSE WILL GO UP. WILL FU. (5) PMR (polymyalgia rheumatica) Current Visit: Yes Status: Acute Plan: HE IS DOING LOT BETTER STRONGER. ABLE TO DO PT. HE REFUSED BIOPSY FOR TEMPORAL ARTERY. HIS GLUCOSE IS HIGH ON STEROID 60 MG SO I REDUCED TO 20 MG DAILY.
[2024-09-11] MEDS ORDERED: AZITHROMYCIN 250 MG TAB PO ONE (22:02)
[2024-09-12] MEDS: AMOX/K CLAV 875 MG TAB PO SCH (00:15)
[2024-09-12 08:05] VITALS: TEMP 97.9
[2024-09-12 10:08] VITALS: O2SAT 92
[2024-09-12 11:06] VITALS: BP 155/86
[2024-09-15 05:29] LABS: Anti-Nuclear Antibody Screen Negative (Negative)
== END 2024-09-12 11:00 | disposition home health service (06) | DRG 546 ==
LOC: ER 08:15 → ERHOLD 11:29 → 4TH 12:24 → OBSVTOIN 09-11 13:50
PROVIDERS: ADMIT Internal Medicine; ATTEND Internal Medicine
DX: M31.5 Giant cell arteritis with polymyalgia rheumatica (principal); I13.0 Hypertensive heart and chronic kidney disease with heart failure and stage 1 through stage 4 chronic kidney disease, or unspecified chronic kidney disease; I50.32 Chronic diastolic (congestive) heart failure; N18.9 Chronic kidney disease, unspecified; E11.22 Type 2 diabetes mellitus with diabetic chronic kidney disease; E11.40 Type 2 diabetes mellitus with diabetic neuropathy, unspecified; J44.9 Chronic obstructive pulmonary disease, unspecified; I48.91 Unspecified atrial fibrillation; I25.10 Atherosclerotic heart disease of native coronary artery without angina pectoris; Z95.0 Presence of cardiac pacemaker; Z95.1 Presence of aortocoronary bypass graft; Z11.52 Encounter for screening for COVID-19; Z79.01 Long term (current) use of anticoagulants; Z79.84 Long term (current) use of oral hypoglycemic drugs; Z79.899 Other long term (current) drug therapy
CPT/HCPCS: 36415; 71045; 80048; 80076; 81001; 82607; 82947; 83519; 83735; 84443; 84484; 85025; 86038; 86140; 86200; 87426; 93005; 97110; 97116; 97161; 97530; 99285; G0378; J1100; J1815; J7040; J7512; J7613; J7644

== ENCOUNTER 2024-12-13 17:35 | Inpatient (IN) | payer OTHER ==
[2024-12-13 18:50] LABS: Urine Microscopic Reflex YN NO UMIC
--- NOTE | 2024-12-13 19:17 | RAD REPORT ---
EXAM: Chest Single View HISTORY: 74 years Male COPD COMPARISON: 12/08/2024 FINDINGS: LUNGS/PLEURA: Mild increased opacities in lung bases . CARDIAC/MEDIASTINUM: Mild cardiomegaly UPPER ABDOMEN: No significant abnormality. BONES: Sternotomy. No acute abnormality. LINES/TUBES/OTHER: N/A IMPRESSION: Mild increased basilar opacities could reflect atelectasis and/or mild infection.
[2024-12-13 19:20] LABS: Absolute Lymphocytes (CBC) 0.4 K/uL (0.7-4.9); Hematocrit 39.8 % (39.6-49.0); Hemoglobin 13.4 g/dL (13.6-17.9); MCH 28.4 pg (27.0-35.0); MCHC 33.5 g/dL (32.0-36.0); MCV 84.5 fL (80-100); MPV 8.3 fL (7.6-11.3); Nucleated RBC Absolute Count 0.0 (0-0); Nucleated Red Blood Cells % 0.1 % (0-0); RBC Red Blood Cell Count 4.71 M/uL (4.33-5.43); White Blood Count 10.40 thou/uL (4.3-10.9)
[2024-12-13 19:27] LABS: PT Prothrombin Time 18.7 SECONDS (10-13.0); PTT, Activated Partial Thromb 30.7 SECONDS (27.2-37.4); Protime INR 1.68
[2024-12-13] MEDS ORDERED: AZITHROMYCIN 500 MG INJ IVPB ONE (20:05)
[2024-12-13] MEDS ORDERED: NA CHLORIDE 0.9% 250 ML ONE (20:05)
--- NOTE | 2024-12-13 20:13 | EDPHYS ---
Physician Documentation [facility] Name: Ludwin Hsu Age: 74 yrs Sex: Male : 1950 Arrival Date: 12/13/2024 Time: 17:35 Bed 13 Private MD: ED Physician Katarzyna Pop HPI: 12/13 17:59 This 74 yrs old Male presents to ER via EMS with complaints of Shortness Of dr5 Breath. 17:59 The patient has shortness of breath at rest. Onset: The symptoms/episode began/occurred dr5 acutely. Patient is a send 74-year-old male with history of A-fib, COPD, CHF, diabetes, hypertension coming in for shortness of breath this been going on for the past day. Patient reports that he also has a fever. Patient denies chest pain, nausea, vomiting, diarrhea. EMS reports that would like to have redness in bilateral lower extremities looked at. Patient denies pain to lower legs. Patient coming in by EMS on 4 L.. Historical: - Allergies: 17:55 NKA; db - PMHx: 17:55 Atrial fibrillation; COPD; CHF; diabetes mellitus; Hypertensive disorder; db - PSHx: 17:55 Coronary artery bypass graft; pacemaker; db - Immunization history:: Adult Immunizations unknown. - Infectious Disease History:: Denies. - Social history:: Smoking status: Patient denies any tobacco usage or history of. ROS: 17:59 Constitutional: as per hpi dr5 Exam: 17:59 Constitutional: This is a well developed, well nourished patient who is awake, alert, dr5 and in no acute distress. Head/Face: Normocephalic, atraumatic. Eyes: Pupils equal round and reactive to light, extra-ocular motions intact. Lids and lashes normal. Conjunctiva and sclera are non-icteric and not injected. Cornea within normal limits. Periorbital areas with no swelling, redness, or edema. Chest/axilla: Normal chest wall appearance and motion. Nontender with no deformity. No lesions are appreciated. Cardiovascular: Irregular rate and rhythm with a normal S1 and S2. Normal PMI, no JVD. No pulse deficits. 3+ pitting edema noted to bilateral lower legs with redness. No tenderness to palpation. Vital Signs: 17:41 BP 115 / 54; Pulse 75; Resp 30; Temp 100.1(O); Pulse Ox 98% ; Weight 119.75 kg; Height db 6 ft. 0 in. ; 18:15 BP 125 / 67; Pulse 65; Resp 20; Pulse Ox 98% on 2 lpm NC; db 19:00 BP 105 / 45; Pulse 62; Resp 20; Pulse Ox 98% on 2 lpm NC; db 19:42 BP 105 / 59; Pulse 60; Resp 15; Temp 98.1(O); Pulse Ox 99% on 2.5 lpm NC; Weight 113.4 tb4 kg; Height 6 ft. 0 in. ; Pain 0/10; 20:44 BP 122 / 73; Pulse 69; Resp 18; Pulse Ox 99% on R/A; Pain 0/10; tb4 21:44 BP 111 / 70; Pulse 60; Resp 20; Pulse Ox 97% on R/A; Pain 0/10; tb4 22:45 BP 110 / 56; Pulse 60; Resp 18; Pulse Ox 100% on R/A; Pain 0/10; tb4 19:42 Body Mass Index 33.91 (113.40 kg, 182.88 cm) tb4 19:42 Pain Scale: Adult tb4 20:44 Pain Scale: Adult tb4 21:44 Pain Scale: Adult tb4 22:45 Pain Scale: Adult tb4 MDM: 17:41 Medical Screening Exam initiated dr5 20:04 Differential diagnosis: Anemia asthma, Bronchitis Chronic Obstructive Pulmonary Disease dr5 pneumonia, Sepsis. Antibiotic administration: Rocephin and Zithromax given. Data reviewed: vital signs, nurses notes, lab test result(s), CBC, white blood cell count, hemoglobin, hematocrit, platelets, electrolytes, sodium, potassium, chloride, serum bicarbonate, BUN, creatinine, serum glucose. 20:08 Data reviewed: radiologic studies, plain films. Consideration of Admission/Observation dr5 Patient was admitted/placed on observation. Management of patient was discussed with the following: Hospitalist: Dr. Swartz. I considered the following discharge prescriptions or medication management in the emergency department I discussed and recommended Over The Counter medications, Medications were administered in the Emergency Department. See MAR. Care significantly affected by the following chronic conditions: A-fib, COPD, CHF, hypertension, diabetes. Care significantly affected by the following Social Determinants of Health: Poor access to healthcare and/or lack of insurance, Poor access to transportation, Problems related to employment. Counseling: I had a detailed discussion with the patient and/or guardian regarding the historical points, exam findings, and any diagnostic results supporting the discharge/admit diagnosis, the presence of at least one elevated blood pressure reading (>120/80) during this emergency department visit, lab results, radiology results, the need for further work-up and treatment in the hospital. ED course: Discussed case with Dr. Swartz. Will admit for COPD exacerbation. Will give antibiotics for pneumonia.. 21:40 ED course: Dr Swartz called, requesting one time doses of trazadone 200mg, gabapentin kb 800mg and eliquis 5mg be ordered and given prior to patient going upstairs. . 12/13 17:41 Order name: BNP [facility] 12/13 17:41 Order name: Blood Culture Adult (2) [facility] 12/13 17:41 Order name: CBC with Diff; Complete Time: 19:33 [facility] 12/13 17:41 Order name: CMP [facility] 12/13 17:41 Order name: Lactate w/ 2H reflex if indic.; Complete Time: 19:50 [facility] 12/13 17:41 Order name: Protime (+inr); Complete Time: 19:33 [facility] 12/13 17:41 Order name: Ptt, Activated; Complete Time: 19:33 [facility] 12/13 17:41 Order name: Troponin HS [facility] 12/13 17:41 Order name: UA Rfx Carlos Cult if indicated; Complete Time: 18:55 [facility] 12/13 17:41 Order name: Chest Single View XRAY; Complete Time: 19:19 [facility] 12/13 17:41 Order name: Accucheck; Complete Time: 19:09 [facility] 12/13 17:41 Order name: Cardiac monitoring; Complete Time: 17:53 [facility] 12/13 17:41 Order name: EKG - Nurse/Tech; Complete Time: 17:53 [facility] 12/13 17:41 Order name: IV Saline Lock - Large Bore; Complete Time: 19:09 [facility] 12/13 17:41 Order name: Labs collected and sent; Complete Time: 19:09 [facility] 12/13 17:41 Order name: O2 Per Protocol; Complete Time: 17:53 [facility] 12/13 17:41 Order name: O2 Sat Monitoring; Complete Time: 17:53 [facility] 12/13 17:41 Order name: Vital Signs; Complete Time: 17:53 [facility] 12/13 19:23 Order name: Labs - recollect needed: green top; Complete Time: 19:59 kmf EC:50 Rate is 79 beats/min. Rhythm is irregularly irregular. QRS Spring is Normal. QRS interval dr5 is normal at 182 msec. QT interval is normal at 502 msec. Clinical impression: Atrial Fibrillation. Administered Medications: 20:22 Drug: AZITHromycin IVPB 500 mg IVPB once over 1 hrs; (mix in 250 mL NS) Route: IVPB; tb4 Infused Over: 1 hrs; Site: right hand; 21:38 Follow up: Response: No adverse reaction; IV Status: Completed infusion tb4 21:37 Drug: MethylPrednisoLONE IVP 40 mg IVP once Route: IVP; Site: right hand; tb4 22:23 Follow up: Response: No adverse reaction tb4 21:38 Drug: levofloxacin IVPB 500 mg 100 ml IVPB once over 60 mins Volume: 100 ml; Route: tb4 IVPB; Infused Over: 60 mins; Site: right hand; 22:23 Follow up: Response: No adverse reaction; IV Status: Completed infusion tb4 21:38 Drug: DuoNeb Nebulize (2.5 mg - 0.5 mg) 3 ml Nebulizer once Route: Nebulizer; tb4 22:23 Follow up: Response: No adverse reaction tb4 22:22 Drug: Eliquis PO 5 mg PO once Route: PO; tb4 23:12 Follow up: Response: No adverse reaction tb4 22:23 Drug: traZODONE PO 200 mg PO once Route: PO; tb4 23:12 Follow up: Response: No adverse reaction tb4 22:23 Drug: Gabapentin PO 800 mg PO once Route: PO; tb4 23:12 Follow up: Response: No adverse reaction tb4 Disposition Summary: 12/13/24 20:12 Hospitalization Ordered Notes: Hospitalization Status: Inpatient Admission dr5 Provider: Jake Swartz Location: Telemetry/MedSurg (Inpatient) dr5 Condition: Stable dr5 Problem: new dr5 Symptoms: have worsened dr5 Bed/Room Type: Standard dr5 Room Assignment: 209(12/13/24 20:19) kmf Diagnosis - Unspecified bacterial pneumonia dr5 Forms: - Medication Reconciliation Form dr5 - SBAR form dr5 - Leadership Thank You Letter dr5 Signatures: Dispatcher [employer] Anali Parada FNP-Rita CASPER-Ckb Estela Piña, RN RN db Brigette Payne [facility] Chucho Cotton, TRAVEL MONEY ADVISOR-C TRAVEL MONEY ADVISOR-Cdr5 Jeannine Alvarado, RN RN tb4 Corrections: (The following items were deleted from the chart) 17:41 17:41 PROBNP+C.LAB.BRZ ordered. EDMS EDMS 17:41 17:41 BLOOD CULTURE*+BA.LAB.BRZ ordered. EDMS EDMS 17:41 17:41 CBC+H.LAB.BRZ ordered. EDMS EDMS 17:41 17:41 COMPREHENSIVE METABOLIC PANEL+C.LAB.BRZ ordered. EDMS EDMS 17:41 17:41 LACTATE+C.LAB.BRZ ordered. EDMS EDMS 17:41 17:41 PROTIME (+INR)+COAG.LAB.BRZ ordered. EDMS EDMS 17:41 17:41 PTT, ACTIVATED+COAG.LAB.BRZ ordered. EDMS EDMS 17:41 17:41 Troponin High Sensitivity+C.LAB.BRZ ordered. EDMS EDMS 17:41 17:41 UA Rfx Carlos Cult if indicated+U.LAB.BRZ ordered. EDMS EDMS 17:41 17:41 Chest Single View+RAD.RAD.BRZ ordered. EDMS EDMS 20:02 17:59 Patient is a send 4-year-old male with history of A-fib, COPD, CHF, diabetes, dr5 hypertension coming in for shortness of breath this been going on for the past day. Patient reports that he also has a fever. Patient denies chest pain, nausea, vomiting, diarrhea. EMS reports that would like to have redness in bilateral lower extremities looked at. Patient denies pain to lower legs. Patient coming in by EMS on 4 L.. dr5 20:19 20:12 dr5 kmf
--- NOTE | 2024-12-13 20:13 | ER ---
Nurse's Notes [facility] Name: Ludwin Hsu Age: 74 yrs Sex: Male : 1950 Arrival Date: 12/13/2024 Time: 17:35 Bed 13 Private MD: Diagnosis: Unspecified bacterial pneumonia Presentation: 12/13 17:41 Chief complaint: EMS states: DIFFICULTY BREATHING ALL DAY WORSE X 1 HOUR. FEVER 101.5 db FOR EMS GIVEN TYLENOL BY . Coronavirus screen: Client denies travel out of the [place] in the last 14 days. At this time, the client does not indicate any symptoms associated with coronavirus-19. Ebola Screen: Patient negative for fever greater than or equal to 101.5 degrees Fahrenheit, and additional compatible Ebola Virus Disease symptoms Patient denies exposure to infectious person. Patient denies travel to an Ebola-affected area in the 21 days before illness onset. No symptoms or risks identified at this time. Initial Sepsis Screen: Does the patient meet any 2 criteria? No. Patient's initial sepsis screen is negative. Does the patient have a suspected source of infection? No. Patient's initial sepsis screen is negative. Risk Assessment: Do you want to hurt yourself or someone else? Patient reports no desire to harm self or others. Onset of symptoms was December 13, 2024. Care prior to arrival: Glucose check: 188. 17:41 Method Of Arrival: EMS: [facility] db 17:41 Acuity: NGUYEN 2 db Triage Assessment: 17:55 General: Appears uncomfortable, Behavior is calm, cooperative. Pain: Denies pain. db Neuro: Level of Consciousness is awake, alert, obeys commands, Oriented to person, place, time, situation. Respiratory: Reports shortness of breath at rest Airway is patent Respiratory effort is even, unlabored, Respiratory pattern is regular, symmetrical, Onset: The symptoms/episode began/occurred today, the patient has mild shortness of breath. Historical: - Allergies: 17:55 NKA; db - PMHx: 17:55 Atrial fibrillation; COPD; CHF; diabetes mellitus; Hypertensive disorder; db - PSHx: 17:55 Coronary artery bypass graft; pacemaker; db - Immunization history:: Adult Immunizations unknown. - Infectious Disease History:: Denies. - Social history:: Smoking status: Patient denies any tobacco usage or history of. Screenin:57 [facility] ED Fall Risk Assessment (Adult) History of falling in the last 3 months, db including since admission Yes- single mechanical fall (1 pt) Confusion or Disorientation No (0 pts) Intoxicated or Sedated No (0 pts) Impaired Gait Yes (1 pt) Mobility Assist Device Used Yes (1 pt) Altered Elimination Yes (1 pt) Score/Fall Risk Level 3 or more points = High Risk Oriented to surroundings, Maintained a safe environment, Hourly rounding (assess needs \T\ fall precautionary measures) done. Abuse screen: Denies threats or abuse. Denies injuries from another. Nutritional screening: No deficits noted. Tuberculosis screening: No symptoms or risk factors identified. Assessment: 17:57 Reassessment: SEE TRIAGE FOR INITIAL ASSESSMENT. db 18:40 Reassessment: Patient appears in no apparent distress at this time. Patient and/or db family updated on plan of care and expected duration. Pain level reassessed. Patient is alert, oriented x 3, equal unlabored respirations, skin warm/dry/pink. General: Appears in no apparent distress. comfortable. Cardiovascular: Rhythm is irregular. Respiratory: Airway is patent Respiratory effort is even, unlabored, Respiratory pattern is regular, symmetrical, Breath sounds are clear. 19:38 Reassessment: See triage note. General: Appears uncomfortable, Behavior is cooperative. tb4 Pain: Denies pain. Neuro: Level of Consciousness is awake, alert, obeys commands, Oriented to person, place, time, situation, Proposal Development Manager are weak bilaterally Moves all extremities. Weakness in bilateral hand(s) arm(s) leg(s) foot/feet Gait is unsteady, Speech is normal, Facial symmetry appears normal. Cardiovascular: Denies chest pain. Respiratory: Airway is patent Respiratory effort is even, unlabored, Respiratory pattern is regular, symmetrical, Breath sounds are clear bilaterally. : Smith in place to gravity drainage. Vital Signs: 17:41 BP 115 / 54; Pulse 75; Resp 30; Temp 100.1(O); Pulse Ox 98% ; Weight 119.75 kg; Height db 6 ft. 0 in. ; 18:15 BP 125 / 67; Pulse 65; Resp 20; Pulse Ox 98% on 2 lpm NC; db 19:00 BP 105 / 45; Pulse 62; Resp 20; Pulse Ox 98% on 2 lpm NC; db 19:42 BP 105 / 59; Pulse 60; Resp 15; Temp 98.1(O); Pulse Ox 99% on 2.5 lpm NC; Weight 113.4 tb4 kg; Height 6 ft. 0 in. ; Pain 0/10; 20:44 BP 122 / 73; Pulse 69; Resp 18; Pulse Ox 99% on R/A; Pain 0/10; tb4 21:44 BP 111 / 70; Pulse 60; Resp 20; Pulse Ox 97% on R/A; Pain 0/10; tb4 22:45 BP 110 / 56; Pulse 60; Resp 18; Pulse Ox 100% on R/A; Pain 0/10; tb4 19:42 Body Mass Index 33.91 (113.40 kg, 182.88 cm) tb4 19:42 Pain Scale: Adult tb4 20:44 Pain Scale: Adult tb4 21:44 Pain Scale: Adult tb4 22:45 Pain Scale: Adult tb4 Vitals: 18:15 Cardiac Rhythm Assessment Atrial fibrillation. db ED Course: 17:39 Patient arrived in ED. bp 17:39 Chucho Cotton, PATIENT CARE ASSOCIATE-C is PHCP. dr5 17:39 Katarzyna Pop MD is Attending Physician. dr5 17:50 EKG done. db 17:53 Estela Piña, RN is Primary Nurse. db 17:55 Triage completed. db 17:55 Arm band placed on Patient placed in an exam room. db 18:35 Urine collected: Smith catheter specimen, clear. Smith cath inserted, using sterile db technique, 16 Fr., by me, balloon inflated, Patient tolerated well. 18:36 Chest Single View XRAY In Process Unspecified. EDMS 18:54 First set of blood cultures drawn. db 18:54 Missed attempt(s): 20 gauge in right antecubital area. Bleeding controlled, band aid db applied, catheter tip intact. 19:04 Initial lab(s) drawn, by me, sent to lab. Second set of blood cultures drawn by me. db Inserted saline lock: 22 gauge in right wrist, using aseptic technique. Blood collected. Flushed with 10 mL NS. 19:14 Patient has correct armband on for positive identification. Bed in low position. Call db light in reach. Side rails up X 1. Client placed on continuous cardiac and pulse oximetry monitoring. NIBP monitoring applied. gambling monitor on. Pulse ox on. NIBP on. 20:10 Jake Swartz MD is Hospitalizing Provider. dr5 Administered Medications: 20:22 Drug: AZITHromycin IVPB 500 mg IVPB once over 1 hrs; (mix in 250 mL NS) Route: IVPB; tb4 Infused Over: 1 hrs; Site: right hand; 21:38 Follow up: Response: No adverse reaction; IV Status: Completed infusion tb4 21:37 Drug: MethylPrednisoLONE IVP 40 mg IVP once Route: IVP; Site: right hand; tb4 22:23 Follow up: Response: No adverse reaction tb4 21:38 Drug: levofloxacin IVPB 500 mg 100 ml IVPB once over 60 mins Volume: 100 ml; Route: tb4 IVPB; Infused Over: 60 mins; Site: right hand; 22:23 Follow up: Response: No adverse reaction; IV Status: Completed infusion tb4 21:38 Drug: DuoNeb Nebulize (2.5 mg - 0.5 mg) 3 ml Nebulizer once Route: Nebulizer; tb4 22:23 Follow up: Response: No adverse reaction tb4 22:22 Drug: Eliquis PO 5 mg PO once Route: PO; tb4 23:12 Follow up: Response: No adverse reaction tb4 22:23 Drug: traZODONE PO 200 mg PO once Route: PO; tb4 23:12 Follow up: Response: No adverse reaction tb4 22:23 Drug: Gabapentin PO 800 mg PO once Route: PO; tb4 23:12 Follow up: Response: No adverse reaction tb4 Medication: 19:12 VIS not applicable for this client. db Outcome: 20:12 Decision to Hospitalize by Provider. dr5 23:24 Patient left the ED. tb4 Signatures: Dispatcher [employer] EDMS Uri Tony, RN RN Estela Lackey RN RN db Chucho Cotton, PATIENT CARE ASSOCIATE-C PATIENT CARE ASSOCIATE-5 Jeannine Alvarado RN RN tb4
[2024-12-13 21:05] LABS: ALT/SGPT 20.0 U/L (16-61); AST/SGOT 14.0 U/L (15-37); Albumin 2.8 g/dL (3.4-5.0); Albumin/Globulin Ratio 0.8 (1.1-1.8); Alkaline Phosphatase 57.0 U/L (45-117); Anion Gap 8.2 mEq/L (5.0-15.0); BUN Blood Urea Nitrogen 43.0 mg/dL (7-18); Globulin 3.3 g/dL (2.3-3.5); Glucose Level 150.0 mg/dL (74-106); NT PRO-BNP 3069.0 pg/mL (<450); Potassium 4.2 mEq/L (3.5-5.1); Troponin High Sensitivity 45.7 pg/mL (<58.9)
[2024-12-13] MEDS ORDERED: IPRATROPIUM BROM 0.5MG/2.5ML ONE (21:07)
[2024-12-13] MEDS ORDERED: METHYLPREDNISOLONE 40 MG INJ ONE (21:07)
[2024-12-13] MEDS ORDERED: Levofloxacin500mg IV 500 MG/100 ML BAG IV ONE (21:07)
[2024-12-13] MEDS ORDERED: ALBUTEROL 2.5 MG/3 ML NEB SOL ONE (21:07)
[2024-12-13] MEDS ORDERED: GABAPENTIN 400 MG CAP ONE (21:55)
[2024-12-13] MEDS ORDERED: TRAZODONE 50 MG TABLET ONE (21:55)
[2024-12-13] MEDS ORDERED: APIXABAN 5 MG TABLET ONE (22:14)
[2024-12-13] MEDS: Levofloxacin500mg IV 500 MG/100 ML BAG IV SCH (23:00)
[2024-12-13] MEDS ORDERED: ACETAMINOPHEN 500 MG TAB PO PRN (23:00)
[2024-12-14] MEDS: METHYLPREDNISOLONE 40 MG INJ IV SCH (00:55)
[2024-12-14] MEDS: ALBUTEROL 2.5 MG/3 ML NEB SOL NEB SCH (01:35)
[2024-12-14] MEDS: Levofloxacin 250mg IV 250 MG/50 ML BAG IV ONE (04:13)
[2024-12-14 05:16] LABS: Absolute Lymphocytes (CBC) 0.1 K/uL (0.7-4.9); Hematocrit 38.4 % (39.6-49.0); Hemoglobin 12.7 g/dL (13.6-17.9); MCH 28.2 pg (27.0-35.0); MCHC 33.1 g/dL (32.0-36.0); MCV 85.1 fL (80-100); MPV 8.2 fL (7.6-11.3); Nucleated RBC Absolute Count 0.0 (0-0); Nucleated Red Blood Cells % 0.0 % (0-0); RBC Red Blood Cell Count 4.51 M/uL (4.33-5.43); White Blood Count 13.30 thou/uL (4.3-10.9)
[2024-12-14 05:34] LABS: Anion Gap 5.0 mEq/L (5.0-15.0); BUN Blood Urea Nitrogen 42.0 mg/dL (7-18); Glucose Level 250.0 mg/dL (74-106); NT PRO-BNP 3379.0 pg/mL (<450); Potassium 5.0 mEq/L (3.5-5.1)
[2024-12-14] MEDS ORDERED: Levofloxacin 250mg IV 250 MG/50 ML BAG IV SCH (07:00)
[2024-12-14] MEDS: TAMSULOSIN 0.4 MG SR CAP PO SCH (08:15)
[2024-12-14] MEDS: APIXABAN 5 MG TABLET PO SCH (08:15)
[2024-12-14] MEDS: PIPER TAZO 2.25 GM in NA CHLORIDE 0.9% 50 ML IV SCH (08:15)
[2024-12-14] MEDS: predniSONE 20 MG TAB PO SCH (08:15)
[2024-12-14] MEDS: AMIODARONE HCL 200 MG TAB PO SCH (08:15)
[2024-12-14] MEDS: POTASSIUM CL SA 10 MEQ TAB PO SCH (08:15)
[2024-12-14] MEDS: FUROSEMIDE 40 MG TABLET PO SCH (08:15)
[2024-12-14 08:33] LABS: Blood Morphology Comment NOT SEEN (NOT SEEN); Differential Total Cells Count 100; Segmented Neutrophils 89 % (40-80)
[2024-12-14] MEDS: TRAZODONE 50 MG TABLET PO SCH (21:07)
[2024-12-14] MEDS: ARIPiprazole 5 MG TAB PO SCH (21:08)
[2024-12-14] MEDS: GABAPENTIN 400 MG CAP PO SCH (21:08)
[2024-12-14] MEDS: INSULIN REGULAR (HUMAN) 100 UNIT/ML SQ SCH (21:56)
[2024-12-14 23:26] VITALS: BMI 35.8
--- NOTE | 2024-12-15 06:14 | HP ---
Date of Admission: 12/13/2024 Chief Complaint: Fever and chills. History Of Present Illness: This is a 74-year-old male patient with multiple chronic comorbidities, came to see me for the first time past week with his , and over the weekend that was yesterday, pancho brown contacted me and informed me that the patient was having fever up to 102 degrees Fahrenheit and c hills and was feeling very weak with that. She was advised to bring patient to the emergency room, s o she called ambulance and the patient was brought into the ER. I did call ER physician and communic ated details with her requesting evaluation and after evaluation was completed, details were discusse d with emergency room provider again and decision was made to admit him to the hospital. The patient denies any nausea, vomiting, diarrhea. No abdominal pain, not coughing up any mucus. Allergies: NO KNOWN ALLERGIES. Medications: Levalbuterol 1.25 mg in 3 mL 1 vial per nebulizer 4 times a day as needed for shortness of breath, amiodarone 200 mg 2 times a day, Eliquis 5 mg 2 times a day, aripiprazole 30 mg daily, Ja rdiance 25 mg daily, furosemide 20 mg takes 3 tablets daily, gabapentin 400 mg takes 2 capsules daily at bedtime, potassium chloride 10 mEq takes 2 tablets daily, and trazodone 100 mg takes 2 tablets da sy at bedtime. Review of Systems: Constitutional: As mentioned above. Significant for fever, chills, and weakness. All other systems reviewed and negative. Past Medical History: Significant for peripheral , type 2 diabetes mellitus, COPD, obstruc tive sleep apnea, COVID-19 infection, hypertension, hyperlipidemia, coronary artery disease, chronic systolic and diastolic heart failure, paroxysmal atrial fibrillation, bilateral carotid artery stenos is, gastroesophageal reflux disease, hepatitis C, diverticulosis, renal cyst, chronic kidney disease, anxiety, posttraumatic stress disorder. Past Surgical History: Significant for coronary artery angioplasty with stent placement in 1989 and 2013, coronary artery bypass surgery in 2017, pacemaker placement in 2022. Family History: Father had congestive heart failure. Mother had breast cancer. Brother had diabete s and throat cancer. Sister had colon cancer, heart disease, and diabetes. Social History: Prior history of smoking, quit smoking in December 2023, and used to smoke 1 pack per day for almost 60 years. Alcohol use negative. Physical Examination: VITAL SIGNS: Last temperature this morning 97.5, pulse 61, respiratory rate 12, blood pressure 132/6 1, oxygen saturation 97% on 2.5 L nasal cannula oxygen. Height 6 feet, weight 264 pounds. General: Awake, alert, oriented, not in distress. HEENT: Head atraumatic, normocephalic. Conjunctivae nonerythematous. Sclerae white. Mouth, no thr ush or edema noted. Ears/Nose, no mass, lesion, discharge noted. Neck: Supple. No JVD, lymph nodes, bruit, thyromegaly noted. Lungs: Bilateral good equal air entry. Clear to auscultation. No rhonchi. No rales. Heart: Normal heart sounds, no murmur or gallop. Abdomen: Soft, bowel sounds normal. No guarding, rigidity, tenderness, mass, hepatosplenomegaly, dis tention, or bruit noted. Extremities: No leg edema. No calf tenderness. Skin: The patient has redness and warmness of skin involving lower 1/4th of both lower extremity, wo rse on the right side than the left side. Lymphatics: No lymph node enlargement in neck, supraclavicular, infraclavicular region. Neuro: No focal neurological deficit. Chest: Unremarkable. External Genitalia: Deferred. Rectal: Deferred. Laboratory Data: Yesterday upon arrival to the emergency room, WBC 10.4, hemoglobin 13.4, platelets 191. Today, WBC 13.3, hemoglobin 12.7, platelets 175. Yesterday, sodium 138, potassium 4.2, chlorid e 108, bicarb 26, BUN 43, creatinine 1.71, glucose 150. Liver function tests unremarkable. Troponin 45.7. ProBNP 3069. Today, proBNP 3379 with sodium 138, potassium 5, chloride 107, bicarb 31, BUN 4 2, creatinine 1.77, glucose 250. Urinalysis negative. Chest x-ray, mild increased bibasilar opaciti es. Impression: 1. Pneumonia. 2. Cellulitis, bilateral lower extremities. 3. Acute exacerbation of chronic obstructive pulmonary disease. 4. Chronic systolic and diastolic heart failure. 5. Coronary artery disease. 6. Paroxysmal atrial fibrillation. 7. Carotid artery stenosis, bilateral. 8. Hypertension. 9. Hyperlipidemia. 10. Type 2 diabetes mellitus. 11. Peripheral neuropathy. 12. Gastroesophageal reflux disease. 13. Chronic kidney disease stage 3B. 14. Diverticulosis. Plan: We will go ahead and admit patient to hospital for further evaluation and management of this nan griffin. The patient is appropriate for inpatient and he is expected to spend 2 midnights in hospital . For his pneumonia and cellulitis of lower extremity, we will go ahead and treat with antibiotic pe r order and monitor his response to antibiotic and then make decision if we need to change anything o r not. For his atrial fibrillation, he is on amiodarone, which we will continue that along with Eliq uis per order. The patient is on Jardiance for diabetes and it is not available in the hospital form [facility], so we will go ahead and manage insulin with sliding scale. Currently, his blood sugar is high because of IV steroid that we using it for COPD exacerbation, which we will continue that and starti ng tomorrow we probably will change it to oral prednisone. For neuropathy, we will continue gabapent in per order. No need for further intervention. For congestive heart failure, he is on furosemide a nd we will continue that. Nebulizer treatment will be given per order. His last echocardiogram from 06/09/2024 was reviewed showing ejection fraction 40% to 45% with diastolic dysfunction. Total time spent 60 minutes including communication with emergency room physician, review of emergenc y room visit record, and performing today's evaluation and management as well as review of recent office visit record from 12/09/2024. NICOLA/MODL Voice ID: [id number]
--- NOTE | 2024-12-15 07:44 | RAD REPORT ---
EXAMINATION: ONE VIEW CHEST XR CLINICAL INDICATION: COPD, pneumonia TECHNIQUE: Frontal chest projection is submitted. Examination is limited by patient positioning and t echnique. COMPARISON: 12/13/2024 FINDINGS: Mild bilateral pulmonary edema is suspected. The heart is mildly enlarged in size. No displaced fract ures identified. Sternotomy wires present. Dual lead pacer device. IMPRESSION: Mild CHF versus volume overload pattern is suspected.
[2024-12-15] MEDS: FUROSEMIDE 40 MG/4 ML VIAL IV ONE (11:52)
--- NOTE | 2024-12-15 20:35 | PN ---
Date of Progress Note: 12/15/2024 Subjective: The patient was seen this morning for followup. No new complaints or problems reported by him. Lying in bed. Not in any distress. Objective: Vital Signs: Reviewed. HEENT: Unremarkable. Lungs: Clear to auscultation. No wheezing. No rales. Heart: Sounds normal. Abdomen: Soft. Bowel sounds normal. No guarding, rigidity, tenderness, or distention. Extremities: Redness of both lower extremity remains unchanged from yesterday. Impression: 1. Cellulitis, bilateral lower leg. 2. Leg edema. 3. Hypertension. 4. Chronic obstructive pulmonary disease. 5. Type 2 diabetes mellitus. 6. Congestive heart failure, chronic, systolic and diastolic. Plan: Repeat chest x-ray was done today, results reviewed, and it appears more to be congestive hear t failure type of problem what we see on chest x-ray than actual pneumonia. He takes Lasix daily and I will change from oral Lasix to IV Lasix 40 mg daily starting today. For cellulitis of both legs, we will continue antibiotics per order. Ambulation was encouraged. I will see him tomorrow for trevor alfaro. NICOLA/MODL Voice ID: [id number] Report ID: [id number]
[2024-12-15] MEDS ORDERED: INSULIN REGULAR (HUMAN) 100 UNIT/ML SQ SCH (21:24)
[2024-12-16 06:08] LABS: Absolute Lymphocytes (CBC) 0.7 K/uL (0.7-4.9); Hematocrit 38.9 % (39.6-49.0); Hemoglobin 12.8 g/dL (13.6-17.9); MCH 28.1 pg (27.0-35.0); MCHC 33.0 g/dL (32.0-36.0); MCV 85.2 fL (80-100); MPV 8.6 fL (7.6-11.3); Nucleated RBC Absolute Count 0.0 (0-0); Nucleated Red Blood Cells % 0.0 % (0-0); RBC Red Blood Cell Count 4.56 M/uL (4.33-5.43); White Blood Count 13.20 thou/uL (4.3-10.9)
[2024-12-16 06:22] LABS: Anion Gap 4.1 mEq/L (5.0-15.0); BUN Blood Urea Nitrogen 52.0 mg/dL (7-18); Glucose Level 232.0 mg/dL (74-106); Magnesium 2.3 mg/dL (1.6-2.4); Potassium 4.1 mEq/L (3.5-5.1)
[2024-12-16] MEDS: FUROSEMIDE 40 MG/4 ML VIAL IV SCH (08:31)
[2024-12-16] MEDS: predniSONE 20 MG TAB PO SCH (08:33)
[2024-12-16] MEDS ORDERED: Levofloxacin 750mg IV 750 MG/150 ML BAG IV SCH (09:00)
[2024-12-16 09:14] VITALS: O2SAT 99
[2024-12-16 14:38] VITALS: BP 146/70; TEMP 97.7
== END 2024-12-16 15:50 | DRG 292 ==
LOC: ER 17:35 → 2ND 20:15
PROVIDERS: ADMIT Internal Medicine; ATTEND Internal Medicine
DX: I13.0 Hypertensive heart and chronic kidney disease with heart failure and stage 1 through stage 4 chronic kidney disease, or unspecified chronic kidney disease (principal); I50.42 Chronic combined systolic (congestive) and diastolic (congestive) heart failure; L03.116 Cellulitis of left lower limb; L03.115 Cellulitis of right lower limb; J44.1 Chronic obstructive pulmonary disease with (acute) exacerbation; N18.32 Chronic kidney disease, stage 3b; E11.22 Type 2 diabetes mellitus with diabetic chronic kidney disease; Z79.84 Long term (current) use of oral hypoglycemic drugs; Z79.51 Long term (current) use of inhaled steroids; Z79.01 Long term (current) use of anticoagulants; K21.9 Gastro-esophageal reflux disease without esophagitis; B19.20 Unspecified viral hepatitis C without hepatic coma; F41.9 Anxiety disorder, unspecified; F43.12 Post-traumatic stress disorder, chronic; Z87.891 Personal history of nicotine dependence; I48.0 Paroxysmal atrial fibrillation; E11.42 Type 2 diabetes mellitus with diabetic polyneuropathy; K57.90 Diverticulosis of intestine, part unspecified, without perforation or abscess without bleeding
CPT/HCPCS: 36415; 51702; 71045; 80048; 80053; 81003; 82947; 83605; 83735; 83880; 84484; 85025; 85610; 85730; 87040; 93005; 94640; 94760; 96365; 96367; 96375; 97116; 97161; 99285; J0456; J1815; J1938; J2543; J2919; J7050; J7512; J7613; J7644

== ENCOUNTER 2025-01-30 16:04 | Inpatient (IN) | payer OTHER ==
--- NOTE | 2025-01-30 17:08 | RAD REPORT ---
EXAM: CT brain without contrast HISTORY: Head injury status post fall COMPARISON: January 20, 2025 TECHNIQUE: Multiple contiguous axial images were obtained and a CT of the brain without contrast.. Sagittal and coronal reconstruction performed. Automated exposure control, adjustment of the mA and/or kV according to patient size, and/or iterative reconstruction. Unless otherwise specified, incidental f indings do not require dedicated imaging follow-up FINDINGS: An intracranial bleed is not seen Ventricles are normal caliber No extra-axial fluid collection noted No significant hypodensity within the brain. Cerebral atrophy No fluid within the visualized sinuses or mastoids noted. IMPRESSION: No acute intracranial abnormality noted. If the patient continues to have symptoms to suggest an acute intracranial abnormality then MRI of th e brain would be recommended.
--- NOTE | 2025-01-30 18:07 | RAD REPORT ---
EXAM:Extremity Venous Uni Ltd HISTORY: Left leg pain TECHNIQUE: Sonographic evaluation left lower extremity performed.Grayscale, color and spectral analys is performed on all vessels COMPARISON: None. FINDINGS: Left common femoral, superficial femoral, greater saphenous, popliteal and posterior tibial veins are compressible and demonstrate augmentation. Doppler demonstrates good flow. IMPRESSION: No evidence of deep venous thrombosis involving the left lower extremity.
[2025-01-30 18:19] LABS: Absolute Lymphocytes (CBC) 0.6 K/uL (0.7-4.9); Hematocrit 34.6 % (39.6-49.0); Hemoglobin 11.3 g/dL (13.6-17.9); MCH 28.1 pg (27.0-35.0); MCHC 32.5 g/dL (32.0-36.0); MCV 86.2 fL (80-100); MPV 8.3 fL (7.6-11.3); Nucleated RBC Absolute Count 0.0 (0-0); Nucleated Red Blood Cells % 0.0 % (0-0); RBC Red Blood Cell Count 4.01 M/uL (4.33-5.43); White Blood Count 6.20 thou/uL (4.3-10.9)
[2025-01-30 18:26] LABS: PT Prothrombin Time 20.9 SECONDS (10-13.0); PTT, Activated Partial Thromb 36.8 SECONDS (27.2-37.4); Protime INR 1.88
[2025-01-30 18:50] LABS: ALT/SGPT 37.0 U/L (16-61); Albumin 2.9 g/dL (3.4-5.0); Albumin/Globulin Ratio 0.7 (1.1-1.8); Alkaline Phosphatase 70.0 U/L (45-117); Anion Gap 8.9 mEq/L (5.0-15.0); BUN Blood Urea Nitrogen 27.0 mg/dL (7-18); Globulin 4.0 g/dL (2.3-3.5); Glucose Level 119.0 mg/dL (74-106); NT PRO-BNP 9209.0 pg/mL (<450); Potassium 3.9 mEq/L (3.5-5.1); Troponin High Sensitivity 51.5 pg/mL (<58.9)
[2025-01-30 18:51] LABS: AST/SGOT 26.0 U/L (15-37)
--- NOTE | 2025-01-30 19:11 | ER ---
Nurse's Notes [facility] Name: Ludwin Hsu Age: 74 yrs Sex: Male : 1950 Arrival Date: 01/30/2025 Time: 16:04 Bed 18 Private MD: Diagnosis: Cellulitis of left lower limb;Unspecified combined systolic (congestive) and diastolic (congestive) heart failure Presentation: 01/30 16:14 Chief complaint: Patient states: C/O redness and swelling to LLE that he noticed ar8 yesterday. 16:14 Coronavirus screen: At this time, the client does not indicate any symptoms associated ar8 with coronavirus-19. Ebola Screen: No symptoms or risks identified at this time. Initial Sepsis Screen: Does the patient meet any 2 criteria? RR > 20 per min. No. Patient's initial sepsis screen is negative. Does the patient have a suspected source of infection? No. Patient's initial sepsis screen is negative. Risk Assessment: Do you want to hurt yourself or someone else? Patient reports no desire to harm self or others. Onset of symptoms was January 29, 2025. 16:14 Method Of Arrival: EMS: [facility] ar8 16:14 Acuity: NGUYEN 3 ar8 Triage Assessment: 16:26 General: Appears uncomfortable, Behavior is calm, cooperative. Pain: Denies pain. ar8 Neuro: Level of Consciousness is awake, alert, obeys commands, Oriented to person, place, time, situation. Cardiovascular: Patient's skin is warm and dry. Respiratory: Airway is patent Respiratory effort is even, unlabored, Respiratory pattern is tachypnea SOB noted with exertion, patient states this is normal for him. GI: No signs and/or symptoms were reported involving the gastrointestinal system. : No signs and/or symptoms were reported regarding the genitourinary system. Derm:. Musculoskeletal: Swelling redness, warmth and swelling noted to LLE. Historical: - Allergies: 16:26 NKA; ar8 - PMHx: 16:26 Atrial fibrillation; Hypertensive disorder; diabetes mellitus; COPD; CHF; ar8 - PSHx: 16:26 Coronary artery bypass graft; pacemaker; ar8 - Immunization history:: Adult Immunizations up to date. - Infectious Disease History:: Denies. - Social history:: Smoking status: Patient denies any tobacco usage or history of. Screenin:29 Abuse screen: Denies threats or abuse. Nutritional screening: No deficits noted. ar8 Tuberculosis screening: No symptoms or risk factors identified. Assessment: 16:29 Reassessment: See triage assessment. ar8 18:05 Reassessment:. ll1 19:00 Reassessment: No changes from previously documented assessment. pt received in care ss12 alert and oriented x4 in bed. Vitally stable. call knight in reach. 20:58 General: Appears in no apparent distress. comfortable, Behavior is calm, cooperative. ss12 Pain: Complains of pain in left lower leg Pain does not radiate. Pain currently is 8 out of 10 on a pain scale. Quality of pain is described as aching, throbbing, Pain began suddenly, Is continuous. Neuro: No deficits noted. Level of Consciousness is awake, alert, obeys commands, Oriented to person, place, time, situation. Cardiovascular: No deficits noted. Reports None Patient's skin is warm and dry. Respiratory: No deficits noted. Airway is patent Respiratory effort is even, unlabored, Respiratory pattern is regular, symmetrical. GI: No deficits noted. Abdomen is round non-distended. : No deficits noted. No signs and/or symptoms were reported regarding the genitourinary system. EENT: No deficits noted. No signs and/or symptoms were reported regarding the EENT system. Derm: No deficits noted. No signs and/or symptoms reported regarding the dermatologic system. Musculoskeletal: No deficits noted. No signs and/or symptoms reported regarding the musculoskeletal system. Vital Signs: 16:14 BP 132 / 55; Pulse 70; Resp 24; Temp 98.4(O); Pulse Ox 97% on R/A; Weight 117.93 kg; ar8 Height 6 ft. 0 in. ; Pain 0/10; 16:45 BP 123 / 62; Pulse 66; Resp 20; Pulse Ox 98% on R/A; ar8 18:18 BP 157 / 72; Pulse 61; Resp 19 S; Pulse Ox 99% on R/A; Pain 0/10; ar8 19:30 BP 149 / 59; Pulse 65; Resp 18; Pulse Ox 98% on R/A; ss12 20:15 BP 164 / 66; Pulse 69; Resp 18; Pulse Ox 98% on R/A; ss12 21:07 BP 152 / 64; Pulse 98; Resp 16; Pulse Ox 96% on R/A; ss12 16:14 Body Mass Index 35.26 (117.93 kg, 182.88 cm) ar8 16:14 Pain Scale: Adult ar8 18:18 Pain Scale: Adult ar8 [place] Coma Score: 19:30 Eye Response: spontaneous(4). Motor Response: obeys commands(6). Verbal Response: ss12 oriented(5). Total: 15. ED Course: 16:12 Patient arrived in ED. eb 16:14 Chucho Cotton, EDY is [facility]. dr5 16:14 Nelson Jules MD is Attending Physician. dr5 16:24 Endy Bowles, STEPHEN is Primary Nurse. ar8 16:26 Triage completed. ar8 16:26 Arm band placed on right wrist. ar8 16:29 Bed in low position. Call light in reach. Side rails up X2. Provided Education on: plan ar8 of care. 16:29 No provider procedures requiring assistance completed. ar8 16:57 CT Head Brain wo Cont In Process Unspecified. EDMS 17:08 EKG done, by ED staff, reviewed by Chucho SNOW. ar8 17:16 Missed attempt(s): 22 gauge in left forearm. Bleeding controlled, band aid applied, ar8 catheter tip intact. 17:50 Initial lab(s) drawn, by mt, sent to lab. First set of blood cultures drawn. Missed ll1 attempt(s): 22 gauge in right antecubital area. Bleeding controlled, band aid applied, catheter tip intact. 17:54 US Extremity Venous Unilateral Ltd In Process Unspecified. EDMS 18:05 Missed attempt(s): 22 gauge in left antecubital area. Bleeding controlled, band aid ll1 applied, catheter tip intact. 18:05 Second set of blood cultures drawn. ll1 18:15 Repositioned patient. Cleaned of incontinence. Linen changed. ll1 19:08 Rikki David, STEPHEN is Hospitalizing Provider. dr5 20:03 Changed diaber. oe 21:13 Cleaned of incontinence. ts3 Administered Medications: No medications were administered Medication: 16:29 VIS not applicable for this client. ar8 Outcome: 19:10 Decision to Hospitalize by Provider. dr5 22:01 Admitted to Med/surg accompanied by nurse, via wheelchair, room 411, with chart, cp4 22:01 Condition: stable 22:01 Instructed on the need for admit, 22:02 Patient left the ED. cp4 Signatures: Dispatcher [employer] EDMS Stan Lemus Elizabeth eb Lewis, Lynsay, RN RN ll1 Monet Rao cp4 Chucho Cotton, MINER HELPER-C MINER HELPER-Cdr5 Goldie Elliott3 Marcella Naranjo RN RN ss12 Endy Bowles RN RN ar8
--- NOTE | 2025-01-30 19:11 | EDPHYS ---
Physician Documentation [facility] Name: Ludwin Hsu Age: 74 yrs Sex: Male : 1950 Arrival Date: 01/30/2025 Time: 16:04 Bed 18 Private MD: ED Physician Nelson Jules HPI: 01/30 18:26 This 74 yrs old Male presents to ER via EMS with complaints of Swelling of dr5 Lower Extremity. 18:26 The patient presents with an abrasion. The complaints affect the lateral aspect of left dr5 calf. Onset: The symptoms/episode began/occurred acutely. Patient is a 74-year-old male with history of A-fib, hypertension, diabetes, COPD, CHF coming in with left lower extremity edema and swelling has been going on since yesterday. Patient reports that he was recently discharged from hospital 4 days ago has not been able to follow-up yet. Patient reports generalized left lower extremity pain. Patient also notes that he is on Eliquis 5 mg twice daily and had a trip and fall and hit head yesterday. Patient denies loss of consciousness.. Historical: - Allergies: 16:26 NKA; ar8 - PMHx: 16:26 Atrial fibrillation; Hypertensive disorder; diabetes mellitus; COPD; CHF; ar8 - PSHx: 16:26 Coronary artery bypass graft; pacemaker; ar8 - Immunization history:: Adult Immunizations up to date. - Infectious Disease History:: Denies. - Social history:: Smoking status: Patient denies any tobacco usage or history of. ROS: 18:26 Constitutional: as per hpi dr5 Exam: 18:26 Constitutional: This is a well developed, well nourished patient who is awake, alert, dr5 and in no acute distress. Head/Face: Normocephalic, atraumatic. Eyes: Pupils equal round and reactive to light, extra-ocular motions intact. Lids and lashes normal. Conjunctiva and sclera are non-icteric and not injected. Cornea within normal limits. Periorbital areas with no swelling, redness, or edema. ENT: Nares patent. No nasal discharge, no septal abnormalities noted. Tympanic membranes are normal and external auditory canals are clear. Oropharynx with no redness, swelling, or masses, exudates, or evidence of obstruction, uvula midline. Mucous membranes moist. Neck: Trachea midline, no thyromegaly or masses palpated, and no cervical lymphadenopathy. Supple, full range of motion without nuchal rigidity, or vertebral point tenderness. No Meningismus. Chest/axilla: Normal chest wall appearance and motion. Nontender with no deformity. No lesions are appreciated. Cardiovascular: Regular rate and rhythm with a normal S1 and S2. Normal PMI, no JVD. No pulse deficits. Respiratory: Lungs have equal breath sounds bilaterally, clear to auscultation. No rales, rhonchi or wheezes noted. No increased work of breathing, no retractions or nasal flaring. Back: No spinal tenderness. No costovertebral tenderness. Full range of motion. Neuro: Awake and alert, GCS 15, oriented to person, place, time, and situation. Cranial nerves II-XII grossly intact. Motor strength 5/5 in all extremities. Sensory grossly intact. Cerebellar exam normal. Normal gait. 18:26 Musculoskeletal/extremity: Extremities: grossly normal except: noted in the left leg: swelling, tenderness, ROM: no acute changes, 18:26 Skin: cellulitis, that is mild, on the lateral aspect of left calf, left calf, medial aspect of left calf and left patel, Peripheral vascular disease, induration, that is mild is noted, located on the lateral aspect of left calf, Other Mild swelling noted to left lower extremity., Vital Signs: 16:14 BP 132 / 55; Pulse 70; Resp 24; Temp 98.4(O); Pulse Ox 97% on R/A; Weight 117.93 kg; ar8 Height 6 ft. 0 in. ; Pain 0/10; 16:45 BP 123 / 62; Pulse 66; Resp 20; Pulse Ox 98% on R/A; ar8 18:18 BP 157 / 72; Pulse 61; Resp 19 S; Pulse Ox 99% on R/A; Pain 0/10; ar8 19:30 BP 149 / 59; Pulse 65; Resp 18; Pulse Ox 98% on R/A; ss12 20:15 BP 164 / 66; Pulse 69; Resp 18; Pulse Ox 98% on R/A; ss12 21:07 BP 152 / 64; Pulse 98; Resp 16; Pulse Ox 96% on R/A; ss12 16:14 Body Mass Index 35.26 (117.93 kg, 182.88 cm) ar8 16:14 Pain Scale: Adult ar8 18:18 Pain Scale: Adult ar8 [place] Coma Score: 19:30 Eye Response: spontaneous(4). Motor Response: obeys commands(6). Verbal Response: ss12 oriented(5). Total: 15. MDM: 16:17 Medical Screening Exam initiated dr5 19:11 Differential diagnosis: Cellulitis, intracranial hemorrhage from fall on Eliquis, acute dr5 kidney injury, lactic acidosis. Data reviewed: vital signs, nurses notes, lab test result(s), cardiac enzymes, troponin i, CBC, white blood cell count, hemoglobin, hematocrit, platelets, electrolytes, sodium, potassium, chloride, serum bicarbonate, BUN, creatinine, serum glucose, PT, PTT, EKG, radiologic studies, CT scan. Consideration of Admission/Observation Patient was admitted/placed on observation. Management of patient was discussed with the following: Hospitalist: Dr. David. I considered the following discharge prescriptions or medication management in the emergency department. Care significantly affected by the following chronic conditions: A-fib, hypertension, diabetes, COPD, CHF. Care significantly affected by the following Social Determinants of Health: Poor access to healthcare and/or lack of insurance, Poor access to transportation, Problems related to employment. Counseling: I had a detailed discussion with the patient and/or guardian regarding the historical points, exam findings, and any diagnostic results supporting the discharge/admit diagnosis, the presence of at least one elevated blood pressure reading (>120/80) during this emergency department visit, lab results, the need for outpatient follow up, for definitive care. Counseling: I had a detailed discussion with the patient and/or guardian regarding the need for further work-up and treatment in the hospital. Special discussion: Based on the history and exam findings, there is no indication for further emergent testing or inpatient evaluation. I discussed with the patient/guardian the need to see the primary care provider for further evaluation of the symptoms. ED course: Will admit patient to hospitalist for left lower extremity wound and elevated BNP.. 01/30 16:35 Order name: BNP; Complete Time: 18:54 dr5 01/30 16:35 Order name: Blood Culture Adult (2) dr5 01/30 16:35 Order name: CBC with Diff; Complete Time: 18:25 01/30 16:35 Order name: CMP; Complete Time: 18:54 01/30 16:35 Order name: Lactate w/ 2H reflex if indic.; Complete Time: 18:37 [facility] 01/30 16:35 Order name: Protime (+inr); Complete Time: 18:28 01/30 16:35 Order name: Ptt, Activated; Complete Time: 18:28 01/30 16:35 Order name: Troponin HS; Complete Time: 18:54 01/30 20:39 Order name: Basic Metabolic Panel EDMS 01/30 20:39 Order name: Basic Metabolic Panel EDMS 01/30 20:39 Order name: Basic Metabolic Panel EDMS 01/30 20:39 Order name: Basic Metabolic Panel EDMS 01/30 20:39 Order name: CBC with Automated Diff EDMS 01/30 20:39 Order name: CBC with Automated Diff EDMS 01/30 20:39 Order name: CBC with Automated Diff EDMS 01/30 20:39 Order name: CBC with Automated Diff EDMS 01/30 16:34 Order name: CT Head Brain wo Cont; Complete Time: 17:08 01/30 16:34 Order name: US Extremity Venous Unilateral Ltd; Complete Time: 18:11 [facility] 01/30 16:35 Order name: Accucheck; Complete Time: 17:15 01/30 16:35 Order name: Cardiac monitoring; Complete Time: 17:15 01/30 16:35 Order name: EKG - Nurse/Tech; Complete Time: 17:15 01/30 16:35 Order name: IV Saline Lock - Large Bore [facility] 01/30 16:35 Order name: Labs collected and sent; Complete Time: 18:04 01/30 16:35 Order name: O2 Per Protocol; Complete Time: 17:15 01/30 16:35 Order name: O2 Sat Monitoring; Complete Time: 17:15 01/30 16:35 Order name: Vital Signs; Complete Time: 17:15 dr5 Administered Medications: No medications were administered Disposition Summary: 01/30/25 19:10 Hospitalization Ordered Notes: Hospitalization Status: Inpatient Admission dr5 Provider: Rikki David dr5 Location: Telemetry/MedSurg (Inpatient) dr5 Condition: Stable dr5 Problem: new dr5 Symptoms: have worsened dr5 Bed/Room Type: Standard dr5 Room Assignment: 411(01/30/25 20:52) rv1 Diagnosis - Cellulitis of left lower limb dr5 - Unspecified combined systolic (congestive) and diastolic (congestive) heart failure dr5 Forms: - Medication Reconciliation Form dr5 - SBAR form dr5 - Leadership Thank You Letter dr5 Addendum: 02/04/2025 07:06 Co-signature as Attending Physician, Nelson Jules MD I reviewed the patient's care r n provided by the Advanced Practice Provider and agree with the diagnosis and treatment plan. Signatures: Dispatcher [employer] EDNC Nelson Jules MD MD rn Villegas, Rebecca rv1 Chucho Cotton, TREMAYNE-C YOGA COORDINATOR-[facility]5 Endy Bowles RN RN ar8 Corrections: (The following items were deleted from the chart) 01/30 16:34 16:34 Extremity Venous Uni Ltd+US.RAD.BRZ ordered. [facility] 20:52 19:10 dr5 rv1
[2025-01-30] MEDS ORDERED: MORPHINE 2 MG/ML SYR IV PRN (20:36)
[2025-01-30] MEDS: INSULIN REGULAR (HUMAN) 100 UNIT/ML SQ SCH (21:00)
--- NOTE | 2025-01-31 06:04 | P.HP ---
Certification for Inpatient Patient admitted to: Inpatient With expected LOS: >2 Midnights Patient will require the following post-hospital care: None Practitioner: I am a practitioner with admitting privileges, knowledge of patient current condition, hospital course, and medical plan of care. Services: Services provided to patient in accordance with Admission requirements found in Title 42 Section 412.3 of the Code of Federal Regulations Patient History Date of Service: 01/30/25 Reason for admission: Cellulitis of left leg. History of Present Illness: Patient is a 74 years old male, with past medical history of atrial fibrillation, essential hypertension, CAD, type 2 diabetes mellitus, COPD,'s combined CHF, sleep apnea, diabetic neuropathy, brought to ER today complaining of increased swelling to his left leg with associated pain with no chest pain or shortness of breath. Patient states his left leg started getting swelling past 3 days, states it has progressively worsening which then prompted him to report to the ER. Patient has cellulitis to his left leg. Patient have wound wounds to right foot and left elbow. Bilateral lungs with coarse scattered crackles and rhonchi. Respiration even and unlabored. Patient presentation of generalized weakness, states he has been falling a lot at home. Course in ER. (1) venous study left leg. Impression: No evidence of deep venous thrombosis involving the left lower extremity. (2) CT of the head. Impression; no acute intracranial findings. Allergies No Known Allergies Allergy (Verified 01/20/25 17:12) Home Medications: Apixaban [Eliquis] 5 mg PO BID 01/28/24 Aripiprazole [Abilify] 30 mg PO DAILY 01/28/24 Empagliflozin [Jardiance] 25 mg PO DAILY 01/28/24 Gabapentin [Neurontin*] 2 tab PO BEDTIME 01/28/24 Trazodone HCl 2 tab PO BEDTIME 01/28/24 Amiodarone HCl [Cordarone*] 200 mg PO DAILY 03/19/24 Furosemide [Lasix*] 60 mg PO DAILY 09/09/24 Losartan Potassium [Cozaar] 25 mg PO DAILY PRN 09/09/24 Potassium Oral Tab [Klor-Con 10 mEq Tab*] 20 meq PO BID #60 tab 09/12/24 Linagliptin [Tradjenta] 01/20/25 - Past Medical/Surgical History Has patient received pneumonia vaccine in the past: Yes Diabetic: Yes -: Hypertension -: Diabetes mellitus type 2 -: Posttraumatic stress disorder -: Anxiety -: Hepatitis-C -: Hyperlipidemia -: CAD, stent placement x2, atrial fibrillation, chronic diastolic CHF -: Obstructive sleep apnea -: Obesity -: Diabetic neuropathy -: History pancreatitis -: COPD, tobacco abuse -: 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 - Family History Father -: Other (see notes) Notes: CHF Mother -: Cancer Notes: breast cancer Sister -: Cancer Notes: colon cancer Brother -: Cancer Notes: throat cancer - Social History Smoking Status: Former smoker Alcohol use: No CD- Drugs: No Caffeine use: Yes Place of Residence: Home Review of Systems 10-point ROS is otherwise unremarkable General: Weakness (Generalized weakness/multiple falls.) Integumentary: Other (Cellulitis left leg, with pain.) Physical Examination - Vital Signs Temperature: 98.2 F Blood Pressure: 186/77 Pulse: 83 Respirations: 23 Pulse Ox (%): 93 - Physical Exam General: Alert, In no apparent distress, Oriented x3 HEENT: Atraumatic, Normocephalic, PERRLA, Mucous membr. moist/pink, Sclerae nonicteric Neck: Supple, 2+ carotid pulse no bruit, No LAD, Without JVD or thyroid abnormality Respiratory: Other (Coarse scattered crackles and rhonchi bilateral.) Cardiovascular: Normal pulses, No gallops, No rubs, No murmurs, Edema (1+ pitting edema bilateral lower extremities.), Irregular heart rate/rhythm (History of atrial fibrillation.) Capillary refill: <2 Seconds Gastrointestinal: Normal bowel sounds, Soft and benign, W/out hepatomegaly, No ascites, No tenderness, No masses, No rebound, No guarding Musculoskeletal: No clubbing, No contractures, Swelling (Left leg cellulitis.), Tenderness (Left leg) Integumentary: Other (Open wound to left elbow, and right foot.) Neurological: Normal speech, Normal tone, Sensation intact, Normal reflexes 2+, Normal affect Lymphatics: No axilla or inguinal lymphadenopathy - Studies Laboratory Data (last 24 hrs) 01/30/25 01/30/25 01/30/25 17:50 17:50 17:50 WBC 6.20 Hgb 11.3 L Hct 34.6 L Plt Count 198 PT 20.9 H INR 1.88 APTT 36.8 Sodium 141 Potassium 3.9 BUN 27 H Creatinine 1.63 H Glucose 119 H Total Bilirubin 0.8 AST 26 ALT 37 Alkaline Phosphatase 70 Male Exam - Male Exam Inguinal exam: No hernias, Inguinal lymph node Assessment and Plan - Plan Patient is admitted to inpatient with diagnosis of left leg cellulitis with no associated chest pain or shortness of breath. (1)Left leg cellulitis. Venous study negative for DVT. -Order Ancef 2 g IV every 8 hours. (2) chronic combined CHF/ HTN. -Continue home medication furosemide 60 mg p.o. daily. -Continue daily dose of Cozaar 25 mg p.o. daily. -Carvedilol 25 mg x 1 p.o. x 1 ordered due to increased blood pressure upon admission. (3) chronic atrial fibrillation. -Continue on Eliquis 5 mg p.o. twice daily. (4)Wounds right foot, and left elbow. -Consult wound care team. (5) chronic COPD. On admission assessment, patient have coarse scattered crackles bilateral with rhonchi. Patient in no respiratory distress. - Ordered DuoNeb nebulizer every 6 hours as needed (6) weakness, deconditioning and multiple falls at home. CT of the head negative for any acute process. -Consult physical therapy for strengthening, endurance and ambulation. (7)Explained entire treatment plan to the patient, solicited questions answered and was understanding. Discharge Plan: Home Plan to discharge in: Greater than 2 days - Advance Directives Does patient have a Living Will: No Does patient have a Durable POA for Healthcare: No - Code Status/Comfort Care Code Status Assessed: Yes Code Status: Full Code Time Spent Managing Pts Care (In Minutes): 55
[2025-01-31] MEDS: ALBUTEROL 2.5 MG/3 ML NEB SOL ONE (06:08)
[2025-01-31] MEDS: IPRATROPIUM BROM 0.5MG/2.5ML ONE (06:09)
[2025-01-31] MEDS: ALBUTEROL 2.5 MG/3 ML NEB SOL NEB PRN (06:10)
[2025-01-31] MEDS: IPRATROPIUM BROM 0.5MG/2.5ML NEB PRN (06:10)
[2025-01-31 06:57] LABS: Anion Gap 8.5 mEq/L (5.0-15.0); BUN Blood Urea Nitrogen 24.0 mg/dL (7-18); Glucose Level 124.0 mg/dL (74-106); Potassium 3.5 mEq/L (3.5-5.1)
[2025-01-31 08:00] LABS: Absolute Lymphocytes (CBC) 0.4 K/uL (0.7-4.9); Hematocrit 35.1 % (39.6-49.0); Hemoglobin 11.6 g/dL (13.6-17.9); MCH 28.4 pg (27.0-35.0); MCHC 33.1 g/dL (32.0-36.0); MCV 85.7 fL (80-100); MPV 8.4 fL (7.6-11.3); Nucleated RBC Absolute Count 0.0 (0-0); Nucleated Red Blood Cells % 0.1 % (0-0); RBC Red Blood Cell Count 4.09 M/uL (4.33-5.43); White Blood Count 7.00 thou/uL (4.3-10.9)
[2025-01-31] MEDS: METOPROLOL TAR 25 MG TAB PO SCH (08:49)
[2025-01-31] MEDS: CEFAZOLIN SODIUM 2 GM in NA CHLORIDE 0.9% 100 ML IVPB SCH (08:50)
[2025-01-31] MEDS: LOSARTAN POTASSIUM 50 MG TABLET PO SCH (08:50)
[2025-01-31] MEDS: APIXABAN 5 MG TABLET PO SCH (08:50)
[2025-01-31] MEDS ORDERED: CEFAZOLIN SODIUM 2 GM in NA CHLORIDE 0.9% 100 ML IVPB SCH (09:00)
[2025-01-31] MEDS: FUROSEMIDE 20 MG TABLET PO SCH (09:00)
--- NOTE | 2025-01-31 11:47 | P.PN ---
Date of Service: 01/31/25 Subjective: reports increased swelling, redness and pain of left lower extremity for a few days pain worst around the heel denies chest pain or shortness of breath reports falling a few days ago. has multiple wounds/bruises scattered throughout the body afebrile Physical Exam: GEN: Alert, oriented, weak CV: Regular rate and rhythm, no edema Pulm: Nonlabored respirations on room air, bilateral wheeze ABD: soft, nontender, nondistended Integumentary: Left lower extremity erythema, swelling, warmth. +Scattered ecchymosis/few open wounds upper and lower extremities Problem List: Left lower extremity cellulitis CKD3 Paroxysmal A-fib on chronic anticoagulation; s/p PPM CAD s/p PCIx2 and CABG Hypertension DM2 with diabetic neuropathy Chronic COPD Chronic systolic/diastolic CHF (35-40%EF) Obstructive sleep apnea Left lower extremity cellulitis on admission, presents with worsening left lower extremity pain, swelling and redness for a few days Had a fall a few days ago per patient. Presents with multiple wounds/bruises throughout body Multiple antibiotics listed in EMR last 1-2 months (Azithromycin 12/08, Doxy 01/05, Augmentin 01/22) Venous u/s negative for DVT in either lower extremity CT head was negative for any acute findings [facility] consult. Sees Dr. Nolasco at [facility] Continue empiric Ancef (01/31-) pain control PT eval CKD3 Creatinine 1.63 on admission Continue to monitor renal function Unknown baseline. 1.4-1.5 Improving Paroxysmal A-fib on chronic anticoagulation; s/p PPM CAD s/p PCIx2 and CABG Hypertension DM2 with diabetic neuropathy Chronic COPD Chronic systolic/diastolic CHF (35-40%EF) Obstructive sleep apnea confirm home meds, restart as appropriate resume home lasix, eliquis, losartan, metoprolol Monitor on telemetry VTE: home eliquis Code: Full Dispo: Pending improvement Time Spent Managing Pts Care (In Minutes): 55
[2025-01-31] MEDS: POTASSIUM 25 MEQ EFFERV TAB PO ONE (17:36)
[2025-01-31] MEDS: FUROSEMIDE 40 MG TABLET PO SCH (17:36)
[2025-01-31] MEDS: POTASSIUM CL SA 10 MEQ TAB PO SCH (20:02)
[2025-01-31] MEDS: LOSARTAN POTASSIUM 50 MG TABLET PO ONE ×2 (21:42→21:51)
[2025-01-31] MEDS: guaiFENesin 100 MG/5 ML UCUP PO PRN (21:52)
[2025-02-01] MEDS ORDERED: FUROSEMIDE 40 MG TABLET PO SCH (09:00)
[2025-02-01] MEDS ORDERED: LOSARTAN POTASSIUM 50 MG TABLET PO SCH (09:00)
[2025-02-01] MEDS: AMIODARONE HCL 200 MG TAB PO SCH (09:49)
[2025-02-01] MEDS: FUROSEMIDE 40 MG TABLET PO SCH (09:49)
[2025-02-01] MEDS: LOSARTAN POTASSIUM 50 MG TABLET PO SCH (09:52)
[2025-02-01] MEDS: ATORVASTATIN 40 MG TAB PO SCH (09:52)
[2025-02-01] MEDS: ARIPiprazole 5 MG TAB PO SCH (09:52)
[2025-02-01 10:21] LABS: Absolute Lymphocytes (CBC) 0.5 K/uL (0.7-4.9); Hematocrit 38.3 % (39.6-49.0); Hemoglobin 12.4 g/dL (13.6-17.9); MCH 27.9 pg (27.0-35.0); MCHC 32.4 g/dL (32.0-36.0); MCV 86.2 fL (80-100); MPV 8.2 fL (7.6-11.3); Nucleated RBC Absolute Count 0.0 (0-0); Nucleated Red Blood Cells % 0.0 % (0-0); RBC Red Blood Cell Count 4.45 M/uL (4.33-5.43); White Blood Count 8.10 thou/uL (4.3-10.9)
[2025-02-01 10:31] LABS: Anion Gap 10.3 mEq/L (5.0-15.0); BUN Blood Urea Nitrogen 26.0 mg/dL (7-18); Glucose Level 151.0 mg/dL (74-106); Potassium 4.3 mEq/L (3.5-5.1)
--- NOTE | 2025-02-01 11:56 | P.CNS ---
Date of Consult: 02/01/25 Chief Complaint: Cellulitis of left leg. History of Present Illness: Patient with PMH of CAD s/p CABG, moderate PVD, presented with left lower extremity cellulites, patient denies chest pain, no palpitations, no syncope. Allergies No Known Allergies Allergy (Verified 01/20/25 17:12) Home medications list reviewed: Yes Home Medications: Apixaban [Eliquis] 5 mg PO BID 01/28/24 Aripiprazole [Abilify] 30 mg PO DAILY 01/28/24 Gabapentin [Neurontin*] 800 mg PO BEDTIME 01/28/24 Amiodarone HCl [Cordarone*] 200 mg PO DAILY 03/19/24 Furosemide [Lasix*] 60 mg PO DAILY 09/09/24 Amox/Clavulanate [Augmentin*] 875 mg PO DAILY 01/31/25 Atorvastatin Calcium 40 mg PO DAILY 01/31/25 Potassium Oral Tab [Klor-Con 10 mEq Tab*] 20 meq PO BID 01/31/25 - Past Medical/Surgical History Diabetic: Yes -: Hypertension -: Diabetes mellitus type 2 -: Posttraumatic stress disorder -: Anxiety -: Hepatitis-C -: Hyperlipidemia -: CAD, stent placement x2, atrial fibrillation, chronic diastolic CHF -: Obstructive sleep apnea -: Obesity -: Diabetic neuropathy -: History pancreatitis -: COPD, tobacco abuse -: 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 - Family History Father Medical History: Other (see notes) Notes: CHF Mother Medical History: Cancer Notes: breast cancer Sister Medical History: Cancer Notes: colon cancer Brother Medical History: Cancer Notes: throat cancer - Social History Smoking Status: Current every day smoker Alcohol use: No CD- Drugs: No Caffeine use: Yes Place of Residence: Home Review of Systems 10-point ROS is otherwise unremarkable Physical Examination Temp Pulse Resp BP Pulse Ox 99.7 F 84 18 176/95 H 94 02/01/25 08:00 02/01/25 09:49 02/01/25 08:00 02/01/25 09:49 02/01/25 08:00 General: Alert, In no apparent distress HEENT: Atraumatic, PERRLA, Mucous membr. moist/pink, EOMI, Sclerae nonicteric Neck: Supple, 2+ carotid pulse no bruit, No LAD, Without JVD or thyroid abnormality Respiratory: Clear to auscultation bilaterally, Normal air movement Cardiovascular: Regular rate/rhythm, Normal S1 S2 Gastrointestinal: Normal bowel sounds, No tenderness Musculoskeletal: No tenderness Integumentary: No rashes Neurological: Normal gait, Normal speech, Normal tone, Normal affect Lymphatics: No axilla or inguinal lymphadenopathy - Problems (1) PVD (peripheral vascular disease) Current Visit: Yes Status: Acute Plan: Patient with cellulites of right lower extremity, would recommend to treat that aggressively with IV abx and follow up with us as outpatient for repeated YOUSUF of lower extremities. continue ASA 81 mg daily continue lipitor 40 mg daily (2) Chronic systolic heart failure Current Visit: No Status: Acute Plan: continue lasix 60 mg daily add lopressor 25 mg po BID (3) Hypertension Onset Date: 05/07/17 Current Visit: No Status: Chronic Plan: Add Lopressor 25 mg po BID Continue to monitor Qualifiers: (4) Afib Current Visit: No Status: Chronic Plan: Continue Amiodarone 200 mg po BID Continue Eliquis 5 mg po BID Add lopressor Qualifiers:
[2025-02-01] MEDS: DOXYCYCLINE 100 MG in NA CHLORIDE 0.9% 100 ML IVPB SCH (13:42)
[2025-02-01] MEDS: ACETAMINOPHEN 500 MG TAB PO PRN (13:42)
[2025-02-01 14:47] VITALS: O2SAT 94
[2025-02-01 17:28] VITALS: BMI 4881.9
[2025-02-01] MEDS: GABAPENTIN 400 MG CAP PO SCH (20:39)
--- NOTE | 2025-02-01 22:14 | PN ---
Date of Progress Note: 02/01/2025 Subjective: The patient was seen this morning for followup. No new complaints or problems reported by the patient. He was lying in bed, not in distress. Was noted to have some cough and chest conges tion, but denies any expectoration. Denies any shortness of breath. No nausea, vomiting. Physical Examination: Vital Signs: Reviewed. HEENT: Unremarkable. Lungs: Clear to auscultation. No wheezing. No rales. Heart: Sounds normal. Abdomen: Soft. Bowel sounds normal. No guarding, rigidity, tenderness, or distention. Extremities: No leg edema. Right lateral ankle dressing was removed and area looks significantly be tter. Has very small area of dry scab, probably just few millimeters in size. No redness of skin ar ound it. No discharge. No bleeding and this is significantly better than last hospital admission. Left lateral heel area had stage II decubitus as noted during previous hospital admission and has marcell ost completely healed except about 3-4 mm small area of dark skin. No open wound. Left calf had 3 s mall dark skin spots, where he actually had blisters when he came into the hospital, which obviously have completely dried up. There is no open wound. Left lower leg in the lower half has pink, slight ly warm skin, no tenderness. Laboratory Data: Reviewed. Impression: 1. Cellulitis, left leg. 2. Chronic obstructive pulmonary disease. 3. Congestive heart failure, chronic. 4. Decubitus ulcer, left heel. Plan: We will go ahead and continue current antibiotic per order and today, the patient actually had fever and we did add doxycycline. Physical Therapy to work with the patient. Social Service was co nsulted to assist with discharge planning. We will see him tomorrow. Depending on his condition, we will decide if we can possibly discharge him to go home little orrow or not. NICOLA/MODL Voice ID: [id number] Report ID: [id number]
[2025-02-02 05:59] LABS: Absolute Lymphocytes (CBC) 1.0 K/uL (0.7-4.9); Hematocrit 34.3 % (39.6-49.0); Hemoglobin 11.5 g/dL (13.6-17.9); MCH 28.4 pg (27.0-35.0); MCHC 33.5 g/dL (32.0-36.0); MCV 84.7 fL (80-100); MPV 7.7 fL (7.6-11.3); Nucleated RBC Absolute Count 0.0 (0-0); Nucleated Red Blood Cells % 0.0 % (0-0); RBC Red Blood Cell Count 4.05 M/uL (4.33-5.43); White Blood Count 7.30 thou/uL (4.3-10.9)
[2025-02-02 06:15] LABS: Anion Gap 7.5 mEq/L (5.0-15.0); BUN Blood Urea Nitrogen 29.0 mg/dL (7-18); Glucose Level 103.0 mg/dL (74-106); Potassium 3.5 mEq/L (3.5-5.1)
[2025-02-02] MEDS: METOPROLOL XL 25 MG TAB PO SCH (08:30)
[2025-02-02] MEDS: POTASSIUM 25 MEQ EFFERV TAB PO ONE (08:31)
--- NOTE | 2025-02-02 10:17 | P.PN ---
Subjective Date of Service: 02/02/25 Chief Complaint: Cellulitis of left leg. Subjective: No new changes, No C/O voiced, Tolerating diet, Improving Review of Systems 10-point ROS is otherwise unremarkable Physical Examination - Vital Signs Temperature: 98.1 F Blood Pressure: 135/63 Pulse: 72 Respirations: 17 Pulse Ox (%): 99 - Physical Exam General: Alert, In no apparent distress HEENT: Atraumatic, PERRLA, EOMI Neck: Supple, JVD not distended Respiratory: Clear to auscultation bilaterally, Normal air movement Cardiovascular: Regular rate/rhythm, Normal S1 S2 Gastrointestinal: Normal bowel sounds, No tenderness Musculoskeletal: No tenderness Integumentary: No rashes Neurological: Normal speech, Normal tone, Normal affect Lymphatics: No axilla or inguinal lymphadenopathy - Studies Medications List Reviewed: Yes Assessment And Plan - Current Problems (Diagnosis) (1) PVD (peripheral vascular disease) Current Visit: Yes Status: Acute Plan: Patient with cellulites of right lower extremity, continue to treat that aggressively with IV abx and follow up with us as outpatient for repeated YOUSUF of lower extremities. continue ASA 81 mg daily continue lipitor 40 mg daily (2) Chronic systolic heart failure Current Visit: No Status: Acute Plan: continue lasix 60 mg daily Continue Toprol XL 25 mg daily (3) Hypertension Onset Date: 05/07/17 Current Visit: No Status: Chronic Plan: continue Toprol and lasix Continue to monitor Qualifiers: (4) Afib Current Visit: No Status: Chronic Plan: Continue Amiodarone 200 mg po BID Continue Eliquis 5 mg po BID continue toprol 25 mg daily Cardiology will sign off, please call with any questions. Qualifiers:
--- NOTE | 2025-02-03 00:20 | PN ---
Date of Progress Note: 02/02/2025 Subjective: The patient was seen this morning for followup. He was lying in bed, not in distress. Denies any new complaints this morning. Objective: Vital Signs: Reviewed. HEENT: Unremarkable. Lungs: Clear to auscultation. Heart: Sounds normal. Abdomen: Soft. Bowel sounds normal. No guarding, rigidity, tenderness, distention. Extremities: No leg edema. Area of cellulitis from left lower leg is significantly better compared to yesterday. The redness from left lower leg is significantly better to the extent that almost comp letely resolved except some minimal area in the lower leg. Left lateral foot on the heel area has de cubitus area, unchanged from yesterday. Right lateral ankle, there is no open wound and just has a s mall area of dry skin over the lateral malleolus and no area of redness, discharge, or open wound the re. Laboratory Data: WBC 7.3, hemoglobin 11.5 platelets 217. Sodium 143, potassium 3.5, chloride 110, b icarb 29, BUN 29, creatinine 1.38, glucose 103. Impression: 1. Cellulitis, left leg. 2. Hypertension. 3. Anemia, unspecified. Plan: Cardiology consultation is appreciated. We will start the patient on metoprolol succinate 25 mg p.o. daily. Continue other current medication. Continue current antibiotics. Physical therapy to continue to work with the pat ient and possible discharge tomorrow. NICOLA/MODL Voice ID: [id number] Report ID: [id number]
[2025-02-03 05:26] LABS: Absolute Lymphocytes (CBC) 0.9 K/uL (0.7-4.9); Hematocrit 34.5 % (39.6-49.0); Hemoglobin 11.4 g/dL (13.6-17.9); MCH 28.4 pg (27.0-35.0); MCHC 33.1 g/dL (32.0-36.0); MCV 85.8 fL (80-100); MPV 8.6 fL (7.6-11.3); Nucleated RBC Absolute Count 0.0 (0-0); Nucleated Red Blood Cells % 0.4 % (0-0); RBC Red Blood Cell Count 4.02 M/uL (4.33-5.43); White Blood Count 8.80 thou/uL (4.3-10.9)
[2025-02-03 06:15] LABS: Anion Gap 10.7 mEq/L (5.0-15.0); BUN Blood Urea Nitrogen 30.0 mg/dL (7-18); Glucose Level 115.0 mg/dL (74-106); Potassium 4.7 mEq/L (3.5-5.1)
[2025-02-03 16:28] VITALS: BP 142/76; TEMP 98
[2025-02-03] MEDS ORDERED: DOXYCYCLINE 100 MG CAP PO SCH (21:00)
== END 2025-02-03 17:59 | DRG 603 ==
LOC: ER 16:04 → ERHOLD 20:34 → 4TH 21:38
PROVIDERS: ADMIT Hospitalist; ATTEND Internal Medicine
DX: L03.116 Cellulitis of left lower limb (principal); I13.0 Hypertensive heart and chronic kidney disease with heart failure and stage 1 through stage 4 chronic kidney disease, or unspecified chronic kidney disease; I50.42 Chronic combined systolic (congestive) and diastolic (congestive) heart failure; N18.30 Chronic kidney disease, stage 3 unspecified; E11.22 Type 2 diabetes mellitus with diabetic chronic kidney disease; E11.51 Type 2 diabetes mellitus with diabetic peripheral angiopathy without gangrene; E11.40 Type 2 diabetes mellitus with diabetic neuropathy, unspecified; D63.1 Anemia in chronic kidney disease; I48.0 Paroxysmal atrial fibrillation; G47.33 Obstructive sleep apnea (adult) (pediatric); L89.622 Pressure ulcer of left heel, stage 2; J44.9 Chronic obstructive pulmonary disease, unspecified; Z79.01 Long term (current) use of anticoagulants; Z95.1 Presence of aortocoronary bypass graft; Z95.0 Presence of cardiac pacemaker; Z59.71 Insufficient health insurance coverage; Z56.0 Unemployment, unspecified; Z59.82 Transportation insecurity; Z79.899 Other long term (current) drug therapy; Z87.891 Personal history of nicotine dependence
CPT/HCPCS: 36415; 70450; 80048; 80053; 82947; 83605; 83880; 84484; 85025; 85610; 85730; 87040; 93005; 93971; 94010; 94640; 97116; 97161; 97530; 99285; J1815; J7613; J7644

== ENCOUNTER 2025-02-03 14:05 | Inpatient (IN) | payer OTHER ==
[2025-02-03 19:24] LABS: Sqamous Epithelial <5 /HPF (None Seen); Urine Culture Reflex Order NOT NEEDED; Urine Microscopic Reflex YN ORDER UMIC; Urine Yeast (Budding) Occasional /HPF (None Seen)
[2025-02-03 19:31] VITALS: BMI 32.8
[2025-02-03] MEDS: guaiFENesin 100 MG/5 ML UCUP PO PRN (20:23)
[2025-02-03] MEDS: INSULIN REGULAR (HUMAN) 100 UNIT/ML SQ SCH (20:23)
[2025-02-03] MEDS: DOXYCYCLINE 100 MG CAP PO SCH (20:23)
[2025-02-03] MEDS: GABAPENTIN 400 MG CAP PO SCH (20:23)
[2025-02-03] MEDS: ATORVASTATIN 40 MG TAB PO SCH (20:23)
[2025-02-03] MEDS: APIXABAN 5 MG TABLET PO SCH (20:23)
[2025-02-03] MEDS: POTASSIUM CL SA 10 MEQ TAB PO SCH (20:23)
[2025-02-03] MEDS: ALBUTEROL 2.5 MG/3 ML NEB SOL NEB PRN (21:20)
[2025-02-03] MEDS: IPRATROPIUM BROM 0.5MG/2.5ML NEB PRN (21:20)
--- NOTE | 2025-02-03 22:30 | RAD REPORT ---
EXAMINATION: ONE VIEW CHEST XR CLINICAL INDICATION: Male, 74 years old.,r/o pneumonia TECHNIQUE: Frontal chest projection is submitted. Examination is limited by patient positioning and t echnique. COMPARISON: 01/20/2025 FINDINGS: The lungs are well inflated and clear. No pneumothorax or sizable effusion. The heart is normal in s ize. Mediastinal contours are unchanged. IMPRESSION: No acute intrathoracic abnormalities.
[2025-02-04] MEDS: ALBUTEROL 2.5 MG/3 ML NEB SOL NEB SCH (00:42)
[2025-02-04] MEDS: IPRATROPIUM BROM 0.5MG/2.5ML NEB SCH (00:42)
[2025-02-04 06:52] LABS: Absolute Lymphocytes (CBC) 1.0 K/uL (0.7-4.9); Hematocrit 34.6 % (39.6-49.0); Hemoglobin 11.6 g/dL (13.6-17.9); MCH 28.6 pg (27.0-35.0); MCHC 33.5 g/dL (32.0-36.0); MCV 85.4 fL (80-100); MPV 8.2 fL (7.6-11.3); Nucleated RBC Absolute Count 0.0 (0-0); Nucleated Red Blood Cells % 0.0 % (0-0); RBC Red Blood Cell Count 4.05 M/uL (4.33-5.43); White Blood Count 8.60 thou/uL (4.3-10.9)
[2025-02-04 07:16] LABS: Albumin 2.5 g/dL (3.4-5.0); Anion Gap 10.1 mEq/L (5.0-15.0); BUN Blood Urea Nitrogen 31.0 mg/dL (7-18); Glucose Level 131.0 mg/dL (74-106); Potassium 4.1 mEq/L (3.5-5.1); Prealbumin 9.1 mg/dL (20-40)
[2025-02-04] MEDS: FUROSEMIDE 40 MG TABLET PO SCH (08:00)
[2025-02-04] MEDS: NYSTATIN 100MU/GM CREAM 15GM TOP SCH (08:00)
[2025-02-04] MEDS: ARIPiprazole 5 MG TAB PO SCH (08:22)
[2025-02-04] MEDS: AMIODARONE HCL 200 MG TAB PO SCH (08:23)
[2025-02-04] MEDS: CRANBERRY FRUIT EXTRACT 425 MG CAPSULE PO SCH (08:23)
[2025-02-04] MEDS: LOSARTAN POTASSIUM 50 MG TABLET PO SCH (08:24)
[2025-02-04] MEDS: METOPROLOL XL 25 MG TAB PO SCH (08:24)
[2025-02-04] MEDS: ACETAMINOPHEN 325 MG TABLET PO PRN (08:28)
[2025-02-04] MEDS: BENZONATATE 100 MG CAP PO PRN (18:28)
--- NOTE | 2025-02-04 19:56 | PN ---
Date of Progress Note: 02/04/2025 Subjective: The patient was seen this morning for followup. No new complaints or problems reported by the patient. Sitting in wheelchair. Objective: Vital Signs: Reviewed. HEENT: Unremarkable. Lungs: Clear to auscultation. No wheezing. No rales. Heart: Sounds normal. Abdomen: Soft. Bowel sounds normal. No guarding, rigidity, tenderness, distention. Extremities: No leg edema. Skin: The patient's skin over left lower extremity, which was pink and warm when he first came in, h as now changed to brown color. No warmness, no tenderness, and no leg swelling. Impression: 1. Cellulitis, left leg. 2. Generalized weakness. 3. Chronic obstructive pulmonary disease. Plan: Continue current medications. Continue physical therapy under guidance of Dr. Grossman. We w ill continue oral doxycycline, and I will see him tomorrow for followup. NICOLA/MODL Voice ID: [id number] Report ID: [id number]
--- NOTE | 2025-02-04 21:41 | HP ---
Date of Admission: 02/03/2025 Time: 1:00 p.m. Chief Complaint: "I have an infection in my left lower extremity, left leg. I need to improve that and get better and go back home." History Of Present Illness: Mr. Hsu is a 74-year-old patient with a recent admission to [facility] who was admitted from 11/19 to for congestive heart failure exacerbation, who went back vitaly and on around the 30 of January had progressive swelling and pain in his left lower extremity. He had also recently fallen at home and had significant difficulty getting up and mobilizing. The p ain progressed over 3 days and he was brought in for evaluation. His workup revealed a left lower extremity cellulitis along with anemia, peripheral vascular disease on top of the congestive systolic heart failure, hypertension, atrial fibrillation. Cardiology evalu ated the patient and the hospitalist service as well. He had cefazolin, doxycycline on board and was placed on Eliquis for stroke and DVT risk reduction and statin, Lipitor for stroke and risk reductio n thereby reducing the LDL cholesterol. He was seen by the wound care service as well. His course w as complicated by infection, decreased mobility, decreased physical functioning with worsening shortn ess of breath and fatigue with limited endurance. In addition, he had episodes of elevated blood pre ssure and low hemoglobin and hematocrit. Prior to his recent worsening, he completed physical therapy, went home, and was independent with ross stevens, able to ambulate over 250 feet with a rolling walker. He was independently able to manage a w heelchair over 300 feet and perform his all activities of daily living without difficulty. Now, he r equires moderate assistance for ria-ce-xflil and able to ambulate less than 40 feet. As a result, he is determined to be an appropriate candidate for inpatient rehabilitation where his comorbid conditi ons and the need for physical therapy can be addressed simultaneously. Interdisciplinary therapy is required to address his decreased mobility, decreased physical functioning, decreased endurance, and manage his medical conditions. Therefore, have inpatient rehabilitation. If he is to be discharged home, chances are he will not likely do as well and may end up returning to the hospital. Past Medical History: As noted above including hypertension, diabetes mellitus type 2, posttraumatic stress disorder, anxiety, hepatitis C, dyslipidemia, coronary artery disease, stent placement x2, ch ronic diastolic and systolic CHF, atrial fibrillation, obstructive sleep apnea, diabetic peripheral n europathy, history of pancreatitis, COPD, tobacco abuse. Allergies: NO KNOWN DRUG ALLERGIES. Medications: 500 mg of Tylenol every 6 hours as needed, albuterol 2.5 mg every 6 hours, amiodarone 2 00 mg daily, Eliquis 5 mg twice daily, Abilify 30 mg daily, Lipitor 40 mg at bedtime, Vibramycin 100 mg twice daily, furosemide 60 mg daily, gabapentin 800 mg at bedtime, guaifenesin 100 mg every 6 hour s as needed, ipratropium 0.5 mg nebulizer daily, Cozaar 25 mg daily, melatonin 3 mg at bedtime, Topro l 25 mg daily, nystatin apply topically twice daily, potassium chloride 20 mEq twice daily. Laboratory Studies: White blood cell count 8.6, hemoglobin 11.6, platelets 222. Sodium 141, potassi um 4.1, chloride 108, carbon dioxide 27, BUN 31, creatinine 1.48. His glucose ranged from 129 to 169 . Hemoglobin A1c 6.8. Calcium is 9.4. Albumin 2.5, prealbumin 9.1. Urinalysis shows 4+ glucose, occasional budding yeast, and trace protein, otherwise unremarkable. X-ray/imaging: A chest x-ray done on 02/03/2025 shows lungs are well inflated and clear. No pneumot horax or sizable effusion. Heart is normal in size. Mediastinal contours are unremarkable. No acut e intrathoracic abnormalities noted. Family History: Noncontributory. Social History: The patient lives with family in single family home. No alcohol, tobacco, or IV olesya g use. Review of Systems: Again, shortness of breath, difficulty with mobilization, fatigue, and pain in the left lower extremi ty with swelling and edema due to cellulitis. Otherwise, negative on a systems review. Current Level Of Functioning: Currently, eating is setup assistance; grooming, setup assistance; bat luis, moderate assistance; upper body dressing, setup assistance; lower body dressing, supervision; t oileting, moderate assistance; wheelchair transfer, moderate assistance; and ambulation of 40 feet wi th contact guard assistance. Not yet able to go up and down steps. Physical Examination: Vital Signs: Blood pressure , pulse 60, respiratory rate of 16 to 20, temperature 98, oxyg en saturation 93%. Weight 249 pounds, height 6 feet 1 inch, BMI 32.9. General: Mr. Hsu is resting comfortably. He is mobilizing around the unit. HEENT: He is normocephalic, atraumatic. Sclerae anicteric. Oropharynx pink and moist. Extremities: He has venous stasis type changes in the lower extremities, more edema on the left. Th ere is a cellulitis compared to the right side. Lungs: Good air movement. Neuro: He has diffuse weakness in upper and lower extremities, proximal and distal and consistent wi th the neuropathy and significant sensory loss in stocking-glove fashion. Rehab And Medical Assessment And Plan: Mr. Hsu is a 74-year-old patient in rehabilitation unit w [facility] impairment category 20, miscellaneous. Impairment group code is debility. Etiologic diagnosis i s left leg cellulitis. He has comorbidities of decreased mobility, decreased physical functioning, h ypertension, diabetes mellitus type 2, posttraumatic stress disorder with anxiety, hepatitis C, dysli pidemia, coronary artery disease, chronic diastolic CHF, atrial fibrillation, obstructive sleep apnea , obesity, diabetic neuropathy, COPD, tobacco abuse in the past. His plan will be physical, occupati onal, and speech therapy 3.5 hours, 5 of 7 days. He has a list of comorbid condition medications and have been noted and the list of comorbid conditions. He will be continued on those treatments to ad dress his comorbid conditions. He is while in hospital followed for his comorbid conditions by Dr. Jake caldera, his primary care physician. Comorbid That Are Impacting His Rehabilitation: His CHF can be a limiting factor. However, he will have incentive spirometry. His chest x-ray shows clear lungs. He will have upper body exercises to help. Also, incentive spirometry will help with accessory muscles of respiration and diaphragm to in crease his capacity to move air over time. As he does his exercises, his heart function will improve in parallel. He does have coarse cellulitis and there is a risk of deep vein thrombus, so he will b e maintained on prophylaxis for deep vein thrombus. He has diabetes mellitus. It is moderately well controlled, but there is room for improvement to improve his hemoglobin A1c and fasting sugar. Federica ey function is at stage 3 and he will be hydrated appropriately and Dr. Swartz is following his renal f unction. Risk of falling is present. He has fallen recently and neuropathy is a contributing factor . Gait belt and a rolling walker will be used as appropriate. Rehab Specific Plan: Mr. Hsu will have physical, occupational, and speech therapy 3.5 hours, 5 o f 7 days to improve his ability to transfer from a chair, to wheelchair, to rolling walker, go on and off the toilet, in and out of shower, upper and lower body dressing. Therapy will work to improve h is capacity to perform activities of daily living, maintain situation awareness, and make good safe d ecisions regarding his transfers, mobilization, and reducing the risk of . In addition, to be able to take his medicines appropriately once he is discharged. Mr. Hsu has a good understanding of the process of admission to the inpatient rehabilitation unit and how he would benefit from physical, occupational, and if need be speech therapy. He will have 2 4 hours a day, 7 days a week skilled rehabilitation nursing, daily physician evaluation and managemen t, and social media sr strategy manager evaluation and management for his discharge planning, home equipment, and to c ontinue therapy after his discharge. Barriers To Discharge: Currently, the possibility as he actually was just discharged home and is now back with the cellulitis, it can recur again. The patient will have discharge aggressive management continued if he is unable to manage home with halfway. However, his goal is to b e able to go back home and be with family and do therapy via Home Health. Use antibiotics. Required extended treatment, that will be managed with Dr. Swartz and if need be, if he requires IV antibiotics that may extend his stay and may have to go to halfway than going home. Length Of Stay: About 10-12 days. Disposition: Expected to be home and to continue therapy via Home Health. Prognosis: Good. Code Status: Full code. Rehab Specific Goals: 1. Become independent with upper and lower body dressing and donning and doffing footwear. 2. Independently mobilize wheelchair 250 feet and a rolling walker 250 feet. 3. Independently go and down 10 steps with bilateral handrails. 4. Independently perform cognitive functioning, safety awareness, and proper communication. The above goals were reviewed with Mr. Hsu and he is in agreement. By signing this document, I acknowledge I personally performed a full physical examination on Mr. Naheed tom no later than 24 hours after his admission to the inpatient rehabilitation unit and determined h e is able to tolerate the above course of treatment at an intensive level for a reasonable period of time. A detailed individualized plan of care for him will be completed by hospital day 4 based on th e preadmission screen, history and physical, and therapy evaluations. STEFANIE Voice ID: [id number]
[2025-02-05] MEDS: ACETAMINOPHEN 500 MG TAB PO PRN (09:23)
[2025-02-05] MEDS: HYDROCODONE/APAP 5/325 MG TAB PO PRN (12:25)
--- NOTE | 2025-02-05 12:26 | PN ---
Date of Progress Note: 02/05/2025 Subjective: The patient was seen this morning for followup. No new complaints or problems reported. He was lying in bed. Denies any new complaints. Objective: Vital Signs: Reviewed. HEENT: Unremarkable. Lungs: Clear to auscultation. Heart: Sounds normal. Abdomen: Soft. Bowel sounds normal. No guarding, rigidity, tenderness, distention. Extremities: No leg edema. Bilateral feet examination: Left lateral heel shows dry area over the l ateral heel from prior decubitus. This is significantly better than before. No open wound. Right l ateral malleolus has probably 2-3 mm superficial open area in the center with normal surrounding skin . No evidence of any discharge, bleeding, or redness. Impression: 1. Cellulitis, left leg. 2. Decubitus ulcer, stage II, right lateral malleolus and left heel, improved. 3. Chronic anticoagulation therapy. 4. Atrial fibrillation. Plan: Continue current medications. Continue physical therapy under guidance of Dr. Grossman. We w ill continue current oral antibiotic which is doxycycline and the patient to offload his both heels a ll the time and his heels were offloaded when I saw him today also. NICOLA/MODL Voice ID: [id number] Report ID: [id number]
--- NOTE | 2025-02-05 13:40 | P.RH.PN ---
Estimated Length of Stay: 12 Expected Discharge Date: 02/12/25 Discharge Disposition Plan: Home Family Support: Yes Assisted Goal: Mobility, Transfers, Self Care Vital Signs: Last Vital Signs Temp 98.1 F 02/05/25 07:55 Pulse 64 02/05/25 07:55 Resp 14 02/05/25 07:55 BP 154/68 H 02/05/25 07:55 Pulse Ox 95 02/05/25 07:55 Laboratory: Laboratory Last Values WBC 8.60 thou/uL (4.3-10.9) 02/04/25 06:30 RBC 4.05 M/uL (4.33-5.43) L 02/04/25 06:30 Hgb 11.6 g/dL (13.6-17.9) L 02/04/25 06:30 Hct 34.6 % (39.6-49.0) L 02/04/25 06:30 MCV 85.4 fL (80-100) 02/04/25 06:30 MCH 28.6 pg (27.0-35.0) 02/04/25 06:30 MCHC 33.5 g/dL (32.0-36.0) 02/04/25 06:30 RDW 16.4 % (12.1-15.2) H 02/04/25 06:30 Plt Count 222 thou/uL (152-406) 02/04/25 06:30 MPV 8.2 fL (7.6-11.3) 02/04/25 06:30 Neutrophils % 75.7 % (41.7-73.7) H 02/04/25 06:30 Lymphocytes % 11.2 % (15.3-44.8) L 02/04/25 06:30 Monocytes % 9.8 % (3.3-12.3) 02/04/25 06:30 Eosinophils % 2.3 % (0-4.4) 02/04/25 06:30 Basophils % 1.0 % (0-1.3) 02/04/25 06:30 Absolute Neutrophils 6.5 K/uL (1.8-8.0) 02/04/25 06:30 Absolute Lymphocytes 1.0 K/uL (0.7-4.9) 02/04/25 06:30 Absolute Monocytes 0.8 K/uL (0.1-1.3) 02/04/25 06:30 Absolute Eosinophils 0.2 K/uL (0-0.5) 02/04/25 06:30 Absolute Basophils 0.1 K/uL (0-0.5) 02/04/25 06:30 Sodium 141 mEq/L (136-145) 02/04/25 06:30 Potassium 4.1 mEq/L (3.5-5.1) 02/04/25 06:30 Chloride 108 mEq/L (98-107) H 02/04/25 06:30 Carbon Dioxide 27 mEq/L (21-32) 02/04/25 06:30 Anion Gap 10.1 mEq/L (5.0-15.0) 02/04/25 06:30 BUN 31 mg/dL (7-18) H 02/04/25 06:30 Creatinine 1.48 mg/dL (0.70-1.30) H 02/04/25 06:30 Est GFR (CKD-EPI) 49 ml/min (=/>90) L 02/04/25 06:30 Glucose 131 mg/dL (74-106) H 02/04/25 06:30 POC Glucose 153 mg/dL (65-120) H 02/05/25 11:10 Hemoglobin A1c 6.8 % (4.2-6.3) H 02/04/25 06:30 Calcium 9.4 mg/dL (8.5-10.1) 02/04/25 06:30 Albumin 2.5 g/dL (3.4-5.0) L 02/04/25 06:30 Prealbumin 9.1 mg/dL (20-40) L 02/04/25 06:30 Urine Color Light-yellow (Yellow) 02/03/25 18:50 Urine Clarity Clear (Clear) 02/03/25 18:50 Urine pH 5.5 (5.0-7.0) 02/03/25 18:50 Ur Specific [place] 1.015 (1.005-1.030) 02/03/25 18:50 Glucose (UA)(Auto) 4+ (over) (Negative) H 02/03/25 18:50 Urine Ketones Negative (Negative) 02/03/25 18:50 Urine Blood Negative (Negative) 02/03/25 18:50 Urine Nitrite Negative (Negative) 02/03/25 18:50 Urine Bilirubin Negative (Negative) 02/03/25 18:50 Urine Urobilinogen Normal (Normal) 02/03/25 18:50 Ur Leukocyte Esterase Negative Luis/uL (Negative) 02/03/25 18:50 Urine RBC <5 /HPF (None Seen) 02/03/25 18:50 Urine WBC <5 /HPF (<5) 02/03/25 18:50 Ur Squamous Epith Cells <5 /HPF (None Seen) 02/03/25 18:50 Urine Bacteria None seen /HPF (<20) 02/03/25 18:50 Urine Yeast (Budding) Occasional /HPF (None Seen) H 02/03/25 18:50 Urine Culture Reflexed Not needed 02/03/25 18:50 Urine Total Protein Trace (Negative) H 02/03/25 18:50 Weight: 249 lb 3.2 oz Wound Present: Yes Negative Pressure Wound Therapy Present: No Physician Update: Labs reviewed with moderate pain. Still on oral antibiotics. Occasional loss of bowel function. Poor tolerance of activity and decreased cognitive functioning. He had [facility]. BIMS 15, SLUMS 18, no speech STGs met pain was 10/10 during the session. He now has [place] 5/325 mg. He has persistent cough. With PT min assist bed mobility. CGA with bed mobility. STS and pivot plus car transfers with min assist. RW 110' and 5 stairs with contact. WC 250' with CGA. Independent oral hygeine partial for upper body dressing, max assist with toilet transfers. Daily weights and I/O. Comment: Heels kept offloaded while in bed. Summary: Patient's care plan and prison goals have been reviewed and revised as necessary. Please see the Rehabilitation Signature page for all necessary signatures.
[2025-02-05] MEDS: FUROSEMIDE 40 MG TABLET PO SCH (16:08)
[2025-02-05] MEDS: GABAPENTIN 400 MG CAP PO SCH (19:02)
--- NOTE | 2025-02-06 10:26 | PN ---
Date of Progress Note: 02/06/2025 Subjective: The patient was seen this morning for followup. No new complaints or problems reported. He was lying in bed, not in any distress. Objective: Vital Signs: Reviewed. HEENT: Unremarkable. Lungs: Clear to auscultation. Heart: Sounds normal. Abdomen: Soft. Bowel sounds normal. No guarding, rigidity, tenderness, distention. Extremities: No leg edema. Skin: Bilateral groins have pink color rash. Impression: 1. Dermatophytosis. 2. Type 2 diabetes mellitus. 3. Cellulitis, left leg. Plan: Continue current doxycycline. The patient is on nystatin cream for his dermatophytosis, but suhas wise is refusing to use it as nursing staff informed me today and the patient also informed me that he d oes not want to use it because it is very sticky and he is willing to use nystatin powder and nurse w as asked to order that. Physical therapy to be continued under guidance of Dr. Grossman. I will see him tomorrow for followup. NICOLA/MODL Voice ID: [id number] Report ID: [id number]
[2025-02-06] MEDS: NYSTATIN PWDR 100000 UNIT/GM TOP SCH (19:15)
--- NOTE | 2025-02-07 11:08 | PN ---
Date of Progress Note: 02/07/2025 Subjective: The patient was seen this morning for followup. No new complaints or problems reported by patient. Lying in bed, not in any distress. Was noted to have some cough, which is his chronic c ough as he reports. No expectoration. No nausea, vomiting. Physical Examination: Vital Signs: Reviewed. HEENT: Unremarkable. Lungs: Clear to auscultation. Heart: Sounds normal. Abdomen: Soft. Bowel sounds normal. No guarding, rigidity, tenderness, distention. Extremities: No leg edema. Left leg cellulitis has completely resolved. Skin over both lower extre mities is dry, but no evidence of any cellulitis. Has darker color skin over the lower legs, which i s chronic changes on the skin. Left lateral heel area of decubitus remains unchanged. Right lateral malleolus has about 2-3 mm very superficial area in form of loss of epidermal skin, but otherwise no evidence of any discharge, bleeding, redness, or tenderness. Bilateral groin examination rash is sl ightly better. Impression: 1. Left leg cellulitis. 2. Dermatophytosis, groin. 3. Decubitus ulcer, left heel and right lateral malleolus. Plan: Continue topical dressing and offloading of both feet. Continue nystatin powder, which was st arted couple of days ago and the patient is tolerating that well and will continue oral doxycycline. We will see him tomorrow for followup. We will get some routine blood work done tomorrow morning. NICOLA/MODL Voice ID: [id number] Report ID: [id number]
[2025-02-07] MEDS: MELATONIN 3 MG TABLET PO PRN (22:55)
[2025-02-08 06:44] LABS: Absolute Lymphocytes (CBC) 1.0 K/uL (0.7-4.9); Hematocrit 31.9 % (39.6-49.0); Hemoglobin 10.5 g/dL (13.6-17.9); MCH 28.2 pg (27.0-35.0); MCHC 32.9 g/dL (32.0-36.0); MCV 85.9 fL (80-100); MPV 8.2 fL (7.6-11.3); Nucleated RBC Absolute Count 0.0 (0-0); Nucleated Red Blood Cells % 0.0 % (0-0); RBC Red Blood Cell Count 3.71 M/uL (4.33-5.43); White Blood Count 7.30 thou/uL (4.3-10.9)
[2025-02-08 06:59] LABS: Anion Gap 8.1 mEq/L (5.0-15.0); BUN Blood Urea Nitrogen 34.0 mg/dL (7-18); Glucose Level 159.0 mg/dL (74-106); Magnesium 1.7 mg/dL (1.6-2.4); Potassium 4.1 mEq/L (3.5-5.1)
[2025-02-08] MEDS: DOCUSATE NA 100 MG CAP PO SCH (07:30)
--- NOTE | 2025-02-08 22:04 | PN ---
Date of Progress Note: 02/08/2025 Subjective: The patient was seen this morning for followup. No new complaints, problems reported. Objective: Vital Signs: Reviewed. HEENT: Unremarkable. Lungs: Clear to auscultation. Heart: Sounds normal. Abdomen: Soft. Bowel sounds normal. No guarding, rigidity, tenderness, or distention. Extremities: No leg edema. Skin: No cellulitis in lower legs and skin in the perineal area in both groin and upper medial thigh rash is better with use of nystatin powder. Impression: 1. Cellulitis, left leg. 2. Generalized weakness. 3. Debility. 4. Dermatophytosis. Plan: Continue current topical antifungal powder. Continue current antibiotics, which is doxycyclin e. Physical therapy to be continued under guidance of Dr. Grossman. Laboratory Data: Labs done today: WBC 7.3, hemoglobin 10.5, platelets 236. Sodium 142, potassium 4 .1, chloride 108, bicarb 30, BUN 34, creatinine 1.47, glucose 159. NICOLA/MODL Voice ID: [id number] Report ID: [id number]
--- NOTE | 2025-02-09 02:23 | PN ---
Date of Progress Note: 02/08/2025 Time: 1:20. Subjective: Mr. Hsu is lying in bed in between therapy sessions. At the time I came in, his rig ht leg was hanging off the bed and he was half in and out of the bed. He was put back in to await hi s next therapy session. He denies significant pain. Still has swelling and of course cellulitis of the left lower extremity and still has some diffuse weakness in the upper and lower extremities. Objective: He denies any fevers, chills, nausea, vomiting. No myalgias, arthralgias. No rash or ps ychiatric complaints. Physical Examination: Vital Signs: Blood pressure 149/49, his pulse of 60, his temperature 98.3, respiratory rate 16 to 20 , oxygen saturation 98%. General: Mr. Hsu is resting comfortably. He is in no significant distress. HEENT: At this point, appears normocephalic, atraumatic. Sclerae anicteric. Extremities: Mild edema in the lower extremities. No other findings on exam. Laboratory Studies: White blood cell count 7.3, hemoglobin 10.5, platelets 236. Sodium 142, potassi um 4.1, chloride 108, carbon dioxide 30, BUN 34, creatinine 1.47, glucose ranged from 116 to 170, oralia cium 9.2, magnesium 1.7. X-ray/imaging: No new x-rays or imaging. Progress Made With Physical, Occupational, And Speech Therapy: With physical therapy today, he was a ble to do [id number] transfers with supervision, multiple [id number]-oj-[id number] transfers from different se rvices done with contact guard assistance. Simulated car transfer done with contact guard assistance . He ambulated 75 feet twice, 125 feet once, and 150 feet with standby assistance. Emphasis placed on footwear as an upright posture. He mobilized a wheelchair 150 feet twice with standby assistance. With speech therapy, was able to have just 20 minutes of session today as the patient was somewhat tired during the afternoon session and he had difficulty completing the last 10 minutes of the sessio n. He did recall 4 of 4 unrelated items after 1 minute delay with moderate to maximal assistance. H e required moderate to minimal assistance for working memory tasks for 4 units of information, he did so with 80% accuracy. Assessment And Plan: Mr. Hsu is a 74-year-old patient with left leg cellulitis. He does have de creased mobility, decreased physical functioning, mild to moderate cognitive impairment. He has risk of deep vein thrombus, hypertension, dyslipidemia, depression, cough is resolved. He has antibiotic Vibramycin managed by Dr. Swartz, Lasix for fluid management, gabapentin for neuropathic pain, Cozaar for heart rate and blood pressure control along with metoprolol and potassium replacement is on board . He will continue in terms of plan with physical, occupational, and speech therapy 3 hours a day, 5 of 7 days. He will continue his list of medications that are managed by Dr. Swartz. Those are his co morbid medications that are noted. RODOLFO/PARTH Voice ID: [id number] Report ID: [id number]
[2025-02-09] MEDS ORDERED: FLUOCINONIDE 0.05% CREAM 30GM TOP PRN (10:37)
[2025-02-09] MEDS: COLLAGENASE 30 GM OINTMENT TOP SCH ×2 (10:37→13:57)
--- NOTE | 2025-02-09 11:38 | CON ---
Date of Consultation: 02/09/2025 Reason For Consultation: Nonhealing wound on the left heel and right lateral malleolus. History Of Present Illness: The patient is a 74-year-old gentleman with multiple medical problems wh o was admitted to inpatient rehab for debility and weakness. He is getting therapy for that. On his evaluation, he was noted to have wounds on his lower extremity, which we have been following [facility]. Nutritional optimization, vitamins, and wound care orders have been given to t he patient and Home Health, last time, we saw the patient. He denies any fever, chills, or purulent discharge. Review of Systems: Otherwise, unremarkable. Past Medical History: Significant for diabetes type 2, peripheral vascular disease, COPD, obstructiv e sleep apnea, hypertension, hyperlipidemia, coronary artery disease, chronic systolic and diastolic heart failure, AFib, carotid artery stenosis, GERD, hepatitis C, diverticulosis, chronic kidney disea se, anxiety, and posttraumatic stress disorder. Past Surgical History: Significant for coronary artery angioplasty, CABG, pacemaker. Allergies: NONE. Social History: The patient has a history of smoking, has quit last year, and does not drink alcohol . Physical Examination: Vital Signs: Stable. He is afebrile. General: He is awake and alert. Head and Neck: No masses. Chest: Clear. Heart: S1, S2. Abdomen: Soft. Extremities: Diminished dorsalis pedis and posterior tibial pulses. He has some dry skin in both lo wer legs and feet. He has a wound that is essentially scabbed over on the left lateral heel. There is no purulence. There is no redness. There is no erythema. There is no warmth. On the right late ral malleolus, the patient has approximately a 2 cm wound with moderate amount of fibrin, but no surr ounding erythema, warmth, or edema. Laboratory Data: His arterial doppler was reviewed. He has moderate plaque throughout the arterial system, monophasic waveforms are seen throughout in the right lower extremity, the patient has modera te significant peripheral vascular disease. Assessment: A 74-year-old gentleman with multiple medical problems, debility, weakness, peripheral v ascular disease, and nonhealing wound on his right lateral ankle as well as the left foot. Recommendations: The patient needs Lidex for the dry skin, Santyl for the right lateral malleolus wo und as it has fibrin and foam to protect the healing wound on his left heel as well as the right late ral malleolus. The patient can follow up in the [facility] upon discharge. Nutritional op timization and vitamins have been discussed with the patient in detail in the [facility]. MARTHA/PARTH Voice ID: [id number] Report ID: [id number]
[2025-02-09] MEDS: FLUOCINONIDE 0.05% CREAM 30GM TOP PRN (13:58)
--- NOTE | 2025-02-09 20:33 | PN ---
Date of Progress Note: 02/09/2025 Subjective: The patient was seen this morning for followup. He was lying in bed, not in distress. Denied any new complaints. Physical Examination: Vital Signs: Reviewed. HEENT: Unremarkable. Lungs: Clear to auscultation. Heart: Sounds normal. Abdomen: Soft. Bowel sounds normal. No guarding, rigidity, tenderness, distention. Extremities: No leg edema. Right lateral heel superficial open wound, actually looks bigger today t [place] last time when I examined day before yesterday and today it is about approximately 4 to 5 mm in s ize, a little bit more deeper than last time and little bit bigger in size than last time. No discha rge or bleeding. Left lateral heel ulcer was examined and there is 1 small superficial open area whi ch is about 2 to 3 mm in size and posterior to that has small area of stage II decubitus where skin i s peeling off. Impression: 1. Decubitus ulcer, left heel, right lateral malleolus. 2. Cellulitis, left leg, resolved. 3. Hypertension. 4. Dermatophytosis, groin. Plan: His rash from groin remained stable compared to last time. We will continue nystatin powder. The patient will have shower today and that probably should help the groin area as well. We will re quest consultation from Dr. Nolasco who is [facility] for worsening of this dec ubitus area. Continue doxycycline for his leg cellulitis and continue physical therapy under guidance of Dr. Grossman. NICOLA/MODL Voice ID: [id number] Report ID: [id number]
--- NOTE | 2025-02-09 22:48 | PN ---
Date of Progress Note: 02/09/2025 Time: 1:15. Subjective: Mr. Hsu is resting well. He has no complaints. No distress. His left leg cellulit is is still present and improving. Swelling is less. He has again no new complaints. Objective: No fevers, chills, myalgias, or arthralgias. Physical Examination: Vital Signs: Blood pressure 150/66, pulse 60, respiratory rate 18, temperature 98.1, oxygen saturati on 98%. General: Mr. Hsu is resting well. He is in no significant distress. Extremities: He does have the swelling in the left lower extremity, discoloration and stasis changes related to his chronic skin issues and cellulitis. Otherwise, no new findings on examination. Laboratory Studies: Blood sugars ranged from 148-195. X-ray/imaging: No new x-rays or imaging and again seen today by Dr. Nolasco for his left lower extremi ty cellulitis. Dr. Nolasco's plan is to do Lidex for dry skin, Santyl for the right lateral malleolus wound. Noted to have fibrin and foam to protect the healing wound and continued to follow up in [facility] and should optimize vitamins and nutrition. Progress Made With Physical, Occupational, And Speech Therapy: With physical therapy today, complete d bed mobility, turning in bed with contact guard assistance using bed rails, supine to sit done with minimal assistance to moderate assistance. Mobilized a rolling walker 50 feet with contact guard as sistance and an additional 200 feet with contact guard assistance and then 150 feet with contact guar d assistance. Mobilized wheelchair 250 feet with supervision. Then later ambulated another 100 feet . With his occupational therapy, able to shower and don and doff his shirt with setup assistance req uired, maximal assistance with donning and doffing footwear, and is ready for transfers from bed to w heelchair and to shower, minimal assistance and verbal cues. Assessment And Plan: Mr. Hsu is a 74-year-old patient in rehabilitation unit with left lower ext remity cellulitis, will be managed by Dr. Nolasco on the [facility]. He has decreased mobility , decreased physical functioning, comorbid condition managed by Dr. Swartz. [facility] 3 hours a day, 5 of 7 days. His list of medications has been re viewed and the list is continued unchanged. He will again have his therapy and follow up with [facility] as noted. STEFANIE Voice ID: [id number] Report ID: [id number]
[2025-02-10] MEDS: MELATONIN 5 MG TABLET PO PRN (19:29)
[2025-02-10] MEDS: MAGNESIUM OXIDE 400 MG TAB PO SCH (19:30)
--- NOTE | 2025-02-10 23:49 | PN ---
Date of Progress Note: 02/10/2025 Time: 1:15. Subjective: Mr. Hsu is mobilizing self around the unit independently. He is doing very well. D enies any significant pain where he has left lower extremity cellulitis. Objective: No fevers, chills, nausea, vomiting. Denies any myalgias or arthralgias. No significant problems. Physical Examination: Vital Signs: Blood pressure is 121/56, pulse 61, respiratory rate 18, temperature 97.8, oxygen satur ation 97%. General: Mr. Hsu again is mobilizing in the unit with his wheelchair. He is very happy and smil ing. He has no new complaints. Neuro: No new focal or neurological deficits. Laboratory Studies: Blood sugars ranged from 133-178. X-ray/imaging: No new x-rays or imaging. Medications: Have been reviewed and are managed by Dr. Swartz and unchanged. Progress Made With Physical, Occupational, And Speech Therapy: Today, he mobilized with a rolling wa lker 75 feet, 100 feet, and 200 feet twice with modified independence and mobilized wheelchair 250 fe et with modified independence. With his occupational therapy, he was independent with wheelchair to bed transfer into bed supine position, was independent for going to the gym and back. Assessment And Plan: Mr. Hsu is a 74-year-old patient in rehabilitation unit with left leg cellu litis. He has been improving. He has decreased mobility, decreased physical functioning, doing very well with that. Pain is managed. He has nebulizer treatment for shortness of breath, Eliquis for s troke and DVT risk reduction with atrial fibrillation. He has Lipitor for dyslipidemia, Tessalon Per les for cough. Continue with Vibramycin per Dr. Swartz, gabapentin for his neuropathic pain, Cozaar fo r hypertension control, melatonin for his insomnia, potassium for replacement of his low potassium. His plan will be to continue with physical and occupational therapy 3 hours a day, 5 of 7 days. His comorbid conditions are managed by Dr. Swartz and these medications will be continued. He will be disc harged to have therapy to continue via Home Health. LB/MODL Voice ID: [id number] Report ID: [id number]
--- NOTE | 2025-02-11 07:14 | PN ---
Date of Progress Note: 02/10/2025 Subjective: The patient was seen this morning for followup. No new complaints or problems reported by the patient. He was lying in bed, not in distress. Objective: Vital Signs: Reviewed. HEENT: Unremarkable. Lungs: Clear to auscultation. Heart: Sounds normal. Abdomen: Soft. Bowel sounds normal. No guarding, rigidity, tenderness, distention. Extremities: No leg edema. Impression: 1. Cellulitis, left leg, resolved. 2. Hypertension. 3. Atrial fibrillation. 4. Decubitus ulcer, left heel and right lateral malleolus. Plan: We will continue to follow up with Dr. Nolasco. I did communicate with him my concern regarding this decubitus area as one over the right lateral malleolus had healed completely, but it opened up again to the current level and he will look into it to see if different type of dressing order will b e necessary or not. Meanwhile, continue physical therapy under guidance of Dr. Grossman and continue other current medical management including doxycycline. I will see him tomorrow for followup. NICOLA/MODL Voice ID: [id number] Report ID: [id number]
[2025-02-11 08:56] LABS: Absolute Lymphocytes (CBC) 1.0 K/uL (0.7-4.9); Albumin 2.5 g/dL (3.4-5.0); Anion Gap 7.9 mEq/L (5.0-15.0); BUN Blood Urea Nitrogen 41.0 mg/dL (7-18); Glucose Level 132.0 mg/dL (74-106); Hematocrit 33.8 % (39.6-49.0); Hemoglobin 11.1 g/dL (13.6-17.9); MCH 27.9 pg (27.0-35.0); MCHC 32.8 g/dL (32.0-36.0); MCV 85.0 fL (80-100); MPV 7.9 fL (7.6-11.3); Magnesium 1.8 mg/dL (1.6-2.4); Nucleated RBC Absolute Count 0.0 (0-0); Nucleated Red Blood Cells % 0.1 % (0-0); Potassium 3.9 mEq/L (3.5-5.1); Prealbumin 15.0 mg/dL (20-40); RBC Red Blood Cell Count 3.98 M/uL (4.33-5.43); White Blood Count 5.10 thou/uL (4.3-10.9)
--- NOTE | 2025-02-11 21:39 | PN ---
Date of Progress Note: 02/11/2025 Subjective: The patient was seen this morning for followup. No new complaints or problems reported by patient. He was sitting in wheelchair. Denies any new complaints. Objective: Vital Signs: Reviewed. HEENT: Unremarkable. Lungs: Clear to auscultation. Heart: Sounds normal. Abdomen: Soft. Bowel sounds normal. No guarding, rigidity, tenderness, distention. Extremities: No leg edema. Impression: 1. Cellulitis, left leg. 2. Decubitus ulcer, right lateral malleolus and left heel. 3. Hypertension. 4. Insomnia. Plan: The patient is having ongoing problems with trouble sleeping at nighttime and last night, he d id not sleep at all as he describes and feels tired during daytime. I did discuss with him regarding trying some medications like trazodone and he is willing to try it. We will continue physical thera py under guidance of Dr. Grossman and he is scheduled to go home tomorrow. NICOLA/MODL Voice ID: [id number] Report ID: [id number]
--- NOTE | 2025-02-11 22:54 | PN ---
Date of Progress Note: 02/11/2025 Time: 1:13. Subjective: Mr. Hsu is mobilizing towards the shower area. He is doing very well. Has no new c omplaints and he is very happy so far with his therapy. He has been discharged in the morning. Objective: No fevers, chills, nausea, vomiting. No significant myalgias, arthralgias. Mild pain in the lower extremities, in the knees especially. Physical Examination: Vital Signs: Blood pressure ranged 140-150/62-69, pulse rate 60-85, respiratory rate 16 to 20, tempe rature 97.6, oxygen saturation 100%. General: Mr. Hsu again is resting comfortably, in no significant distress with a wheelchair mobi lizing towards the shower. HEENT: He is normocephalic, atraumatic. Sclerae anicteric. Oropharynx pink, moist. Neuro: He has no focal neurological deficits. Extremities: Left lower extremity cellulitis. No new findings there. Stasis changes identified in both legs. Laboratory Studies: White blood cell count 5.1, hemoglobin 11.1, platelets 291. Sodium 141, potassi um 3.9, chloride 105, carbon dioxide 32, BUN 41, creatinine 1.66, glucose ranged from 99-182, calcium 9.4, magnesium 1.8, albumin 2.5, prealbumin 15.0. X-ray/imaging: No new x-rays or imaging. Medications: Have been reviewed and are unchanged. Medications are managed by Dr. Swartz. Primary [facility] physician is following him on a daily basis. Progress Made With Physical, Occupational, And Speech Therapy: Today, he ambulated 125 feet with a r olling walker with supervision. He also did not actually want to shower, but still cooperated. He d id additional exercises of another 150 feet twice and 250 feet with modified independence, ambulating with the rolling walker. Mobilized a wheelchair 250 feet independently and was up and down 15 stair s independently as of well. With his occupational therapy, engaged in bilateral upper extremity aero bic exercises and wheelchair and very well used 3-pound dowels as he exercised. He is not receiving speech. Assessment And Plan: Mr. Hsu is a 74-year-old patient in rehabilitation unit with left leg cellu litis. He has much improved, decreased mobility, decreased physical functioning. He is followed for his fibrillation, with amiodarone. He has Eliquis 5 mg twice daily, Abilify for issues of psychiatr ic expression, which would not occur. He has Lipitor for dyslipidemia. Tessalon Perles for cough, g abapentin for neuropathic pain, Cozaar for blood pressure management along with Toprol, potassium rep lacement on board. He will continue with physical and occupational therapy until his discharge [facility]. RODOLFO/PARTH Voice ID: [id number] Report ID: [id number]
[2025-02-12 07:09] VITALS: BP 142/64; TEMP 97.7
--- NOTE | 2025-02-13 04:30 | DS ---
Date of Discharge: 02/12/2025 Disposition: Discharged to go home. Physical Examination: HEENT: Unremarkable. Lungs: Clear to auscultation. Heart: Sounds normal. Abdomen: Soft. Bowel sounds normal. No guarding, rigidity, tenderness, or distention. Extremities: No leg edema. Laboratory Data: Last blood work from 02/11/2025, WBC 5.10, hemoglobin 11.1, platelets 291. Sodium 141, potassium 3.9, chloride 105, bicarb 32, BUN 41, creatinine 1.66, glucose 132. Discharge Medications And Instructions: 1. Continue all prior home medications. 2. Continue right ankle and left heel dressing changes as per instruction from Dr. Nolasco/[facility]. 3. Follow up with Dr. Nolasco at [facility] next week. 4. The patient to get established with new primary care provider as Dr. Swartz will not be responsible for your care as of 02/21/2025. Discharge Diagnoses: 1. Cellulitis, left leg. 2. Generalized weakness. 3. Debility. 4. Coronary artery disease. 5. Paroxysmal atrial fibrillation. 6. Hypertension. 7. Type 2 diabetes mellitus. 8. Hyperlipidemia. 9. Congestive heart failure, chronic, systolic and diastolic Hospital Course: A 74-year-old male patient, who was admitted to inpatient rehab after his brief stay on medical floor. The patient was managed by Dr. Grossman for physical therapy from rehab floor, and I continue to follow up on the patient for medical management. Consultation was requested from Dr. Nolasco for wound care management, which is right lateral ankle and left heel area. Overall, the patient's generalized weakness and debility have improved over the period of this hospitalization with physical therapy provided on the rehab floor, and today he was determined stable for discharge from rehab point of view. Medically, he is stable for discharge. I have reminded the patient that I will not be responsible for his care as of February 21, 2025. We will need to schedule his appointment with new provider as per instruction. I told him that he and his needs to work on it as he has not done so, and he told me today that he will take care of it. NICOLA/MODL Voice ID: [id number] Report ID: [id number] BETSEY
== END 2025-02-12 12:46 | disposition home health service (06) | DRG 948 ==
LOC: 5TH 18:00
PROVIDERS: ADMIT Internal Medicine; ATTEND Internal Medicine
DX: R53.81 Other malaise (principal); L03.116 Cellulitis of left lower limb; I13.0 Hypertensive heart and chronic kidney disease with heart failure and stage 1 through stage 4 chronic kidney disease, or unspecified chronic kidney disease; I50.42 Chronic combined systolic (congestive) and diastolic (congestive) heart failure; R53.1 Weakness; E11.22 Type 2 diabetes mellitus with diabetic chronic kidney disease; N18.30 Chronic kidney disease, stage 3 unspecified; E11.40 Type 2 diabetes mellitus with diabetic neuropathy, unspecified; L89.512 Pressure ulcer of right ankle, stage 2; L89.622 Pressure ulcer of left heel, stage 2; G31.84 Mild cognitive impairment of uncertain or unknown etiology; B35.6 Tinea cruris; R05.3 Chronic cough; I48.0 Paroxysmal atrial fibrillation; I25.10 Atherosclerotic heart disease of native coronary artery without angina pectoris; F43.10 Post-traumatic stress disorder, unspecified; F41.9 Anxiety disorder, unspecified; G47.00 Insomnia, unspecified; B19.20 Unspecified viral hepatitis C without hepatic coma; E78.5 Hyperlipidemia, unspecified; G47.33 Obstructive sleep apnea (adult) (pediatric); J44.9 Chronic obstructive pulmonary disease, unspecified; I73.9 Peripheral vascular disease, unspecified; K21.9 Gastro-esophageal reflux disease without esophagitis; E66.9 Obesity, unspecified; Z68.32 Body mass index [BMI] 32.0-32.9, adult; Z91.81 History of falling; Z95.5 Presence of coronary angioplasty implant and graft; Z95.0 Presence of cardiac pacemaker; Z79.01 Long term (current) use of anticoagulants; Z87.891 Personal history of nicotine dependence
CPT/HCPCS: 36415; 71045; 80048; 81001; 82040; 82947; 83036; 83735; 84134; 85025; 92523; 97110; 97116; 97129; 97162; 97165; 97530; 97542; J3590; J7613; J7644